=== PATIENT | female | born 1995 | race Caucasian/White ===

== ENCOUNTER 2023-01-03 22:45 | Emergency (ER) | payer OTHER, SELFPAY ==
[2023-01-03 22:48] VITALS: BP 148/109; PULSE 93; RESP 16; TEMP 36.8; O2SAT 98; BMI 30.8
[2023-01-03 23:01] VITALS: BP 138/68
--- NOTE | 2023-01-03 23:20 | ED.GENADUL1 ---
HPI - General Adult General Chief complaint: Headache Stated complaint: HEADACHE Time Seen by Provider: 01/03/23 23:13 Mode of arrival: walk-in History of Present Illness HPI narrative: family history of headaches. Her mother and her Aunti have migraines. She now presents with one week his of headache. top of her head and radiates into her neck. Neck is sore. no fever. No numbness or weakness of her extremities. states she feels dizzy and nauseated . No fever denies similar headaches Related Data Home Medications Medication Instructions Recorded Confirmed fluoxetine 40 mg capsule (Prozac) 40 mg PO DAILY 01/03/23 01/03/23 lamotrigine 100 mg tablet 100 mg DAILY 01/03/23 octreotide acetate .ROUTE 01/03/23 Allergies Allergy/AdvReac Type Severity Reaction Status Date / Time No Known Drug Allergies Allergy Verified 01/03/23 22:51 Review of Systems ROS Status of ROS 10 or more systems reviewed and unremarkable except as noted in history and below [facility] Social History Smoking status: Never smoker Exam Constitutional Vital Signs - 24 hr 01/03/23 22:48 01/03/23 23:01 Temperature 98.3 F Pulse Rate [Monitor] 93 H Respiratory Rate 16 Blood Pressure [Left Arm] 148/109 H 138/68 H Pulse Oximetry 98 Common normals: no apparent distress, average body habitus, oriented x3, no limitations, healthy appearing and alert [facility] Common normals: normocephalic and head/scalp atraumatic Eye Common normals: PERRL, EOMs intact bilaterally, conjunctivae normal, no scleral icterus and no papilledema Respiratory Common normals: normal respiratory effort, no retractions, no use of accessory muscles and clear to auscultation bilaterally Cardio Common normals: regular rate, regular rhythm, S1 normal heart sound and S2 normal heart sound GI Common normals: Normal to inspection, nondistended, normoactive bowel sounds present Extremity Common normals: normal to inspection, full ROM, normal capillary refill and no joint enlargement Neuro Common normals: oriented x3, moves all extremities, no focal motor deficits and no sensory deficits noted Psych Appearance: grossly normal Course Vital Signs Vital signs: Vital Signs Temperature 98.3 F 01/03/23 22:48 Pulse Rate 93 H 01/03/23 22:48 Respiratory Rate 16 01/03/23 22:48 Blood Pressure 148/109 H 01/03/23 22:48 Pulse Oximetry 98 01/03/23 22:48 Temperature 98.3 F 01/03/23 22:48 Pulse Rate 93 H 01/03/23 22:48 Respiratory Rate 16 01/03/23 22:48 Blood Pressure 138/68 H 01/03/23 23:01 Pulse Oximetry 98 01/03/23 22:48 Medical Decision Making MDM Narrative Medical decision making narrative: patient presents with a headache for one week. Neck sore. No fever. No similar past headache. labs unremarkable except mild elevation of glucose at 120s. CT brain neg. Patient medicated in the department and feeling much better at time of discharge. Discharged and advised to follow up with her family doctor in one day for recheck Discharge Plan Discharge Chief Complaint: Headache Clinical Impression: Headache Patient Disposition: Home, Self-Care Prescriptions / Home Meds: No Action lamotrigine 100 mg tablet 100 mg DAILY fluoxetine [Prozac] 40 mg capsule 40 mg PO DAILY octreotide acetate [Sandostatin] .ROUTE Patient Comments: infusion every 28days infusion clinic. unknown dose. Instructions: Acute Headache (ED) Stand Alone Forms: Portal Instructions Referrals: ELOISE SAMS [Primary Care Provider] - 1 week Follow Up Appointments: follow up tomorrow for recheck
--- NOTE | 2023-01-03 23:23 | CT_ITS ---
The [address] [address] Patient Name: KRYS MARTINEZ MRN: [id number] date: 1995 Sex: F Assigned Patient Location: ER Current Patient Location: ER Accession/Order Number: [id number] Exam Date: 01/03/2023 23:45 Report Date: 01/04/2023 00:08 At the request of: DIONICIO PAYTON Procedure: CT head/brain wo con CT head/brain wo con, 01/03/2023 11:45 PM EDT INDICATION: headache COMPARISON: None. TECHNIQUE: Axial CT images of the brain from skull base to vertex, including portions of the face and sinuses, were obtained without contrast. Multiplanar reformatted images were generated and reviewed as needed. Dose reduction techniques were achieved by using automated exposure control and/or adjustment of mA and/or kV according to patient size and/or use of iterative reconstruction technique. FINDINGS: CEREBRUM: No edema, hemorrhage, mass, acute infarction, or inappropriate atrophy. CEREBELLUM: No edema, hemorrhage, mass, acute infarction, or inappropriate atrophy. BRAINSTEM: No acute infarct, hemorrhage or gross structural abnormality. CSF SPACES: Ventricles, cisterns, and sulci are appropriate for age. No hydrocephalus, subarachnoid hemorrhage, or mass. SKULL: No mass or other significant visible lesion. SINUSES: Limited views demonstrate no significant mucosal thickening or fluid. ORBITS: Limited views are unremarkable. OTHER: None. IMPRESSION: No acute intracranial abnormality is identified. Electronically authenticated by: Carla MEADOWS Date: 01/04/2023 00:08
[2023-01-03 23:29] LABS: Basophils Percent Auto 0.5 % (0.2-2.0); Eosinophils Absolute Auto 0.2 10^3/uL (0.0-0.7); Eosinophils Percent Auto 1.9 % (0.9-7.0); Hemoglobin 11.6 g/dL (12.0-16.0); Immature Granulocytes Abs Auto 0.05 10^3/uL (0.00-0.03); Immature Granulocytes Pct Auto 0.6 % (0.0-0.5); Lymphocytes Absolute Auto 2.4 10^3/uL (1.2-3.8); Lymphocytes Percent Auto 27.7 % (20.5-60.0); Mean Corpuscular HGB Conc 32.2 g/dL (29.9-35.2); Mean Corpuscular Hemoglobin 27.8 pg (26.7-34.0); Mean Corpuscular Volume 86.3 fL (81.0-99.0); Mean Platelet Volume 9.6 fL (9.5-13.5); Monocytes Absolute Auto 0.6 10^3/uL (0.3-0.8); Monocytes Percent Auto 7.1 % (1.7-12.0); Neutrophils Absolute Auto 5.4 10^3/uL (1.4-6.5); Neutrophils Percent Auto 62.2 % (43.0-75.0); Platelet Count 365 10^3/uL (150-450); Red Blood Count 4.17 10^6/uL (4.20-5.40); Red Cell Distribution Width 12.8 % (11.0-15.0); White Blood Count 8.6 10^3/uL (4.0-11.0)
[2023-01-03 23:34] LABS: Anion Gap 11.9; BUN Creatinine Ratio 11.6; Calcium 8.6 mg/dL (8.5-10.1); Carbon Dioxide 28.8 mmol/L (21.0-32.0); Chloride 101 mmol/L (98-107); Estimated GFR (African America >60 (>=60); Estimated GFR (Non-African Ame >60 (>=60); Glucose 124 mg/dL (74-106); HCG Qualitative NEGATIVE (NEGATIVE); Potassium 3.7 mmol/L (3.5-5.1); Sodium 138 mmol/L (136-145)
[2023-01-03] MEDS: METHYLPREDNISOLONE SOD SUCC PF 125 MG/2 ML VIAL IVP (23:34)
[2023-01-03] MEDS: DIPHENHYDRAMINE HCL 50 MG/ML (1ML) VIAL IV (23:34)
[2023-01-03 23:35] LABS: C Reactive Protein <1.0 mg/dL (<=1.0)
[2023-01-03] MEDS: ONDANSETRON PF 4 MG/2 ML VIAL IV (23:35)
[2023-01-03] MEDS: 0.9 % SODIUM CHLORIDE 1,000 ML 1000 ML (23:47)
[2023-01-04] MEDS: MAGNESIUM SULFATE IN WATER 50 ML IV (00:44)
== END 2023-01-04 02:17 | disposition home or self-care (01) ==
PROVIDERS: Emergency Provider Internal Medicine; PCP Nurse Practitioner Family
DX: R51.9 Headache, unspecified (principal)
CPT/HCPCS: 36415; 70450; 80048; 84703; 85025; 86140; 96374; 96375; 99285; J2930

== ENCOUNTER 2023-02-08 22:01 | Emergency (ER) | payer OTHER, SELFPAY ==
[2023-02-08 22:05] VITALS: BP 185/98; PULSE 104; RESP 18; TEMP 37; O2SAT 100; BMI 31.2
[2023-02-08 22:06] VITALS: BP 185/98
--- NOTE | 2023-02-08 22:14 | ED.CHESTPAI1 ---
HPI - Chest Pain General Chief Complaint: Chest Pain Stated Complaint: CHEST PAIN RADIATING TO BACK, 6WKS TOMORR Time Seen by Provider: 02/08/23 22:13 Source: patient Mode of arrival: walk-in History of Present Illness HPI narrative: Patient presents to emergency department complaining of chest pain and pressure to the epigastric region that started 3 days ago. She states 3 days ago last January 10 minutes and went away. Today it has been ongoing for over half hour she's not had any relief. States the pain extends from her epigastric region bilaterally the ribs and to the back. She complains of pain to the right upper quadrant. Patient is 6 weeks gestation. She states she initially feels warm prior to the pain starting. It is not related to exertion. There is nothing that makes it better or worse. She denies any lower extremity edema, or cramping. She has a history of carcinoid tumor, status post bowel resection. Patient has not seen her doctor regarding the . She states she is slightly nauseated on arrival to the emergency department. She denies any flank pain, hematuria, dysuria. She denies any trauma. She denies any diarrhea, constipation. She states she was struck in normal amounts of coffee denies any dizziness, lightheadedness, palpitations. She denies any cough, fever, chills or upper respiratory infection symptoms. Related Data Home Medications Medication Instructions Recorded Confirmed fluoxetine 40 mg capsule (Prozac) 40 mg PO DAILY 01/03/23 01/03/23 lamotrigine 100 mg tablet 100 mg DAILY 01/03/23 octreotide acetate .ROUTE 01/03/23 Previous Rx's Medication Instructions Recorded ondansetron HCl 4 mg tablet 4 mg PO Q8H PRN nausea and 02/08/23 vomiting 4 days #10 tabs Allergies Allergy/AdvReac Type Severity Reaction Status Date / Time gabapentin Allergy Mild Vomiting Verified 02/08/23 22:09 Review of Systems ROS Status of ROS 10 or more systems reviewed and unremarkable except as noted in history and below [facility] Social History Smoking status: Never smoker Exam Narrative Exam Narrative: Nurses notes and vital signs reviewed and patient is not hypoxic. General: Nontoxic, Well-appearing and in no apparent distress. Skin: Warm, dry, no pallor noted. No Rash Head: Normocephalic, atraumatic. Neck: Supple, non-tender. Eye: Pupils are equal, round and EOMI. No scleral icterus. Ears, Nose, Mouth, and Throat: TM clear, no posterior oropharynx erythema or nasal mucosal hypertrophy, uvula is mid-line Oral mucosa is moist Cardiovascular: Regular Rate and Rhythm without murmur, gallop or rub. Respiratory: No accessory muscle use or respiratory distress. Lungs are clear to auscultation, no wheezing, rales or rhonchi Chest Wall: no tenderness Back: No midline thoracic or lumbar vertebral tenderness. No CVA tenderness Musculoskeletal: normal ROM, no calf or popliteal tenderness, no lower extremity edema/swelling GI: Abdomen is soft, non-distended. Normal bowel sounds. No masses appreciated. No tenderness to palpation. No rebound, guarding, or rigidity noted. Neurological: A&O x4. No cranial nerve dysfunction observed. No truncal ataxia. Moves all extremities. Sensation intact. Psychiatric: Cooperative and interactive. anxious. Constitutional Vital Signs, click to edit/add: Last Vital Signs Temp 98.6 F 02/08/23 22:05 Pulse 85 02/08/23 23:45 Resp 18 02/08/23 22:05 BP 130/87 H 02/08/23 23:30 Pulse Ox 100 02/08/23 22:05 O2 Del Method Room Air 02/08/23 22:05 Course Vital Signs Vital signs: Vital Signs Temperature 98.6 F 02/08/23 22:05 Pulse Rate 104 H 02/08/23 22:05 Respiratory Rate 18 02/08/23 22:05 Blood Pressure 185/98 H 02/08/23 22:05 Pulse Oximetry 100 02/08/23 22:05 Oxygen Delivery Method Room Air 02/08/23 22:05 Temperature 98.6 F 02/08/23 22:05 Pulse Rate 85 02/08/23 23:45 Respiratory Rate 18 02/08/23 22:05 Blood Pressure 130/87 H 02/08/23 23:30 Pulse Oximetry 100 02/08/23 22:05 Oxygen Delivery Method Room Air 02/08/23 22:05 MDM - Chest Pain MDM Narrative Medical decision making narrative: EKG shows sinus rhythm without any acute ischemic changes. Patient had an IV established was given normal saline, Zofran, Pepcid and IV fluids. Chest x-ray was done with the patient the shielded and consent was obtained. Patient is agreeable to x-ray. All results discussed with patient.Patients for urinalysis sent for culture. She states she'll was has to consider decreasing her urine. She does not have any dysuria, flank pain, hematuria. Patient was given a prescription for Zofran. She'll follow up with primary care doctor and [employer], And her cancer doctors at [facility]. At this time the patient is without objective evidence of an acute process requiring hospitalization or inpatient management. The patient has remained hemodynamically stable. No additional indication for emergent studies at this time. I answered all questions. Discussed discharge instructions including standard anticipatory guidance and what should prompt a return to the emergency department, including if they get worse are not getting better or develops any new or concerning symptoms. I've given them specific time frame in which to follow-up, and who to follow-up with. The patient demonstrates understanding. Patient is nontoxic and stable for discharge with outpatient follow-up. This note was created with the assistance of a speech recognition program. Although the intention is to generate documents that actually reflects the content of the visit, no guarantees can be provided that every mistake has been identified and corrected by editing. Differential Diagnosis Differential diagnosis: Likely pneumothorax, atypical chest pain, st elevation myocardial infarction, costochondritis, chest pain and biliary colic Lab Data Attestation: I reviewed the patient's lab results. Labs: Lab Results 02/08/23 02/08/23 Range/Units 22:00 22:42 WBC 11.0 (4.0-11.0) 10^3/uL RBC 4.04 L (4.20-5.40) 10^6/uL Hgb 10.9 L (12.0-16.0) g/dL Hct 34.0 L (36.0-48.0) % MCV 84.2 (81.0-99.0) fL MCH 27.0 (26.7-34.0) pg MCHC 32.1 (29.9-35.2) g/dL RDW 13.5 (11.0-15.0) % Plt Count 386 (150-450) 10^3/uL MPV 9.5 (9.5-13.5) fL Neut % (Auto) 58.0 (43.0-75.0) % Lymph % (Auto) 30.6 (20.5-60.0) % [place] % (Auto) 9.0 (1.7-12.0) % Eos % (Auto) 1.1 (0.9-7.0) % Baso % (Auto) 0.5 (0.2-2.0) % Neut # (Auto) 6.4 (1.4-6.5) 10^3/uL Lymph # (Auto) 3.4 (1.2-3.8) 10^3/uL [place] # (Auto) 1.0 H (0.3-0.8) 10^3/uL Eos # (Auto) 0.1 (0.0-0.7) 10^3/uL Baso # (Auto) 0.1 (0.0-0.1) 10^3/uL Abs Immat Gran (auto) 0.09 H (0.00-0.03) 10^3/uL Imm/Tot Granulo (auto) 0.8 H (0.0-0.5) % Sodium 139 (136-145) mmol/L Potassium 3.9 (3.5-5.1) mmol/L Chloride 103 (98-107) mmol/L Carbon Dioxide 27.1 (21.0-32.0) mmol/L Anion Gap 12.8 BUN 8.0 (7.0-18.0) mg/dL Creatinine 0.70 (0.55-1.02) mg/dL Est GFR ( Amer) >60 (>=60) Est GFR (Non-Af Amer) >60 (>=60) BUN/Creatinine Ratio 11.4 Glucose 106 (74-106) mg/dL Calcium 9.0 (8.5-10.1) mg/dL Total Bilirubin 0.2 (0.2-1.0) mg/dL AST 26 (15-37) U/L ALT 55 (14-59) U/L Alkaline Phosphatase 49 (46-116) U/L Troponin I High Sens <4.0 L (4.0-51.3) pg/mL Total Protein 7.4 (6.4-8.2) g/dL Albumin 4.2 (3.4-5.0) g/dL Globulin 3.2 g/dL Albumin/Globulin Ratio 1.3 Lipase 94.0 (73.0-393.0) U/L Urine Color Lt. yellow (YELLOW) Urine Clarity Clear (CLEAR) Urine pH 7.5 (5.0-9.0) Ur Specific [place] 1.015 (1.005-1.025) Urine Protein Negative (NEG/TRACE) mg/dL Urine Glucose (UA) Negative (NEGATIVE) mg/dL Urine Ketones Negative (NEGATIVE) mg/dL Urine Occult Blood Negative (NEGATIVE) Urine Nitrite Negative (NEGATIVE) Urine Bilirubin Negative (NEGATIVE) Urine Urobilinogen 0.2 (0.2-1.0) EU/dL Ur Leukocyte Esterase Trace A (NEGATIVE) Urine RBC 0-2 (0-2) #/HPF Urine WBC 2-5 A (NONE SEEN) #/HPF Ur Squamous Epith Cells Few A (NONE/RARE) #/LPF Urine Crystals Seen A (None Seen) #/HPF Amorphous Sediment Moderate Urine Bacteria Large A (NONE SEEN) #/HPF Urine Casts None seen (NONE SEEN) #/LPF Urine Mucus None seen (NONE SEEN) Ur Culture Indicated? Yes Urine Opiates Screen Negative (NEGATIVE) Ur Buprenorphine Scrn Negative (NEGATIVE) Ur Oxycodone Screen Negative (NEGATIVE) Urine Methadone Screen Negative (NEGATIVE) Ur Propoxyphene Screen Negative (NEGATIVE) Ur Barbiturates Screen Negative (NEGATIVE) U Tricyclic Antidepress Negative (NEGATIVE) Ur Phencyclidine Scrn Negative (NEGATIVE) Ur Amphetamines Screen Negative (NEGATIVE) U Methamphetamines Scrn Negative (NEGATIVE) U Benzodiazepines Scrn Negative (NEGATIVE) Urine Cocaine Screen Negative (NEGATIVE) U Cannabinoids Screen Negative (NEGATIVE) Heart Score History: Slightly/Non-Suspicious ECG: Normal Age: <45 years Risk Factors: No Risk Factors Troponin: <Normal Limit Total Heart Score Recommendations & Risks:: 0 Discharge Plan Discharge Chief Complaint: Chest Pain Clinical Impression: Chest pain Patient Disposition: Home, Self-Care Time of Disposition Decision: 23:45 Condition: Good Mode of Transportation: Private Vehicle Prescriptions / Home Meds: New ondansetron HCl 4 mg tablet 4 mg PO Q8H PRN (Reason: nausea and vomiting) 4 Days Qty: 10 0RF No Action lamotrigine 100 mg tablet 100 mg DAILY fluoxetine [Prozac] 40 mg capsule 40 mg PO DAILY octreotide acetate [Sandostatin] .ROUTE Patient Comments: infusion every 28days infusion clinic. unknown dose. Instructions: Chest Pain (ED) Stand Alone Forms: Portal Instructions Referrals: Ron Ruano DO [Physician] - 1 week ELOISE SAMS [Primary Care Provider] - 1 week Discharge Date/Time: 02/09/23 00:00
[2023-02-08 22:17] VITALS: PULSE 97
--- NOTE | 2023-02-08 22:27 | ECG_ITS ---
The [facility] Test Date: 2023-02-08 Pat Name: KRYS MARTINEZ Department: Room: - Gender: Female Svp Monetization: : 1995 Requested By: [id number] Order Number: [id number] Reading MD: CRISTI SCHAFER Measurements Intervals [place] Rate: 109 P: 74 MS: 138 QRS: 75 QRSD: 72 T: 16 QT: 316 QTc: 380 Interpretive Statements 1120 Sinus tachycardia 4068 Nonspecific Twave abnormality 8102 Low QRS voltage in chest leads 9140 abnormal rhythm ECG No previous ECG available for comparison Electronically Signed On 02-09-2023 7:21:22 EDT by CRISTI SCHAFER
[2023-02-08 22:38] LABS: Basophils Absolute Auto 0.1 10^3/uL (0.0-0.1); Basophils Percent Auto 0.5 % (0.2-2.0); Eosinophils Absolute Auto 0.1 10^3/uL (0.0-0.7); Eosinophils Percent Auto 1.1 % (0.9-7.0); Hemoglobin 10.9 g/dL (12.0-16.0); Immature Granulocytes Abs Auto 0.09 10^3/uL (0.00-0.03); Immature Granulocytes Pct Auto 0.8 % (0.0-0.5); Lymphocytes Absolute Auto 3.4 10^3/uL (1.2-3.8); Lymphocytes Percent Auto 30.6 % (20.5-60.0); Mean Corpuscular HGB Conc 32.1 g/dL (29.9-35.2); Mean Corpuscular Volume 84.2 fL (81.0-99.0); Mean Platelet Volume 9.5 fL (9.5-13.5); Neutrophils Absolute Auto 6.4 10^3/uL (1.4-6.5); Platelet Count 386 10^3/uL (150-450); Red Blood Count 4.04 10^6/uL (4.20-5.40); Red Cell Distribution Width 13.5 % (11.0-15.0)
--- NOTE | 2023-02-08 22:42 | XR_ITS ---
The [address] [address] Patient Name: KRYS MARTINEZ MRN: [id number] date: 1995 Sex: F Assigned Patient Location: ER Current Patient Location: ER Accession/Order Number: [id number] Exam Date: 02/08/2023 22:42 Report Date: 02/08/2023 23:03 At the request of: CHERYLE PARKER Procedure: XR chest 1V EXAMINATION: XR chest 1V HISTORY: Midsternal chest pain, dyspnea and cough COMPARISON: None. TECHNIQUE: Portable chest FINDINGS: The lung parenchyma is free of consolidation or infiltrate. No pneumothorax or pleural effusion. The cardiac, mediastinal and hilar contours are normal. The visualized osseous structures exhibit no gross abnormality. XR/XR chest 1V IMPRESSION: No acute cardiopulmonary abnormality. Electronically authenticated by: NAWAF CAIN Date: 02/08/2023 23:03
[2023-02-08 22:51] LABS: Alanine Aminotransferase 55 U/L (14-59); Albumin Globulin Ratio 1.3; Albumin Level 4.2 g/dL (3.4-5.0); Alkaline Phosphatase 49 U/L (46-116); Anion Gap 12.8; Aspartate Amino Transferase 26 U/L (15-37); BUN Creatinine Ratio 11.4; Bilirubin Total 0.2 mg/dL (0.2-1.0); Carbon Dioxide 27.1 mmol/L (21.0-32.0); Chloride 103 mmol/L (98-107); Estimated GFR (African America >60 (>=60); Estimated GFR (Non-African Ame >60 (>=60); Globulin 3.2 g/dL; Glucose 106 mg/dL (74-106); Potassium 3.9 mmol/L (3.5-5.1); Sodium 139 mmol/L (136-145); Total Protein 7.4 g/dL (6.4-8.2); Troponin I High Sensitivity <4.0 pg/mL (4.0-51.3)
[2023-02-08 22:59] LABS: Amphetamine Screen Urine NEGATIVE (NEGATIVE); Barbiturates Screen Urine NEGATIVE (NEGATIVE); Benzodiazepines Screen Urine NEGATIVE (NEGATIVE); Buprenorphine Screen Urine NEGATIVE (NEGATIVE); Cannabinoid Screen Urine NEGATIVE (NEGATIVE); Cocaine Screen Urine NEGATIVE (NEGATIVE); Methadone Screen Urine NEGATIVE (NEGATIVE); Methamphetamines Screen Urine NEGATIVE (NEGATIVE); Opiate Screen Urine NEGATIVE (NEGATIVE); Oxycodone Screen Urine NEGATIVE (NEGATIVE); Phencyclidine Screen Urine NEGATIVE (NEGATIVE); Tricyclic Antidepressant Urine NEGATIVE (NEGATIVE)
[2023-02-08] MEDS: ONDANSETRON PF 4 MG/2 ML VIAL (23:00)
[2023-02-08] MEDS: 0.9 % SODIUM CHLORIDE 1,000 ML 1000 ML (23:00)
[2023-02-08 23:11] VITALS: BP 126/83
[2023-02-08 23:19] LABS: Bilirubin Urine NEGATIVE (NEGATIVE); Blood Urine NEGATIVE (NEGATIVE); Clarity Urine CLEAR (CLEAR); Color Urine LT. YELLOW (YELLOW); Glucose Urine UA NEGATIVE (NEGATIVE); Ketones Urine NEGATIVE (NEGATIVE); Leukocyte Esterase Urine TRACE (NEGATIVE); Nitrite Urine NEGATIVE (NEGATIVE); Protein Urine NEGATIVE (NEG/TRACE); Specific Gravity Urine 1.015 (1.005-1.025); Urobilinogen Urine 0.2 EU/dL (0.2-1.0); pH Urine 7.5 (5.0-9.0)
[2023-02-08 23:22] LABS: Urine Microscopic Indicated YES
[2023-02-08 23:28] LABS: Amorphous Sediment Urine MODERATE; Bacteria Urine LARGE #/HPF (NONE SEEN); Cast Seen? NONE SEEN #/LPF (NONE SEEN); Crystals Seen? Seen #/HPF (None Seen); Mucus Urine NONE SEEN (NONE SEEN); RBC Urine 0-2 #/HPF (0-2); Squamous Epithelial Cell Urine FEW #/LPF (NONE/RARE)
[2023-02-08 23:29] LABS: Urine Culture Indicated YES
[2023-02-08 23:30] VITALS: BP 130/87
[2023-02-08 23:45] VITALS: PULSE 85
== END 2023-02-09 | disposition home or self-care (01) ==
PROVIDERS: Emergency Provider Emergency Medicine; PCP Nurse Practitioner Family
DX: O26.891 Other specified pregnancy related conditions, first trimester (principal); R07.9 Chest pain, unspecified; Z3A.01 Less than 8 weeks gestation of pregnancy; Z79.899 Other long term (current) drug therapy
CPT/HCPCS: 36415; 71045; 80053; 80307; 81003; 81015; 83690; 84484; 85025; 87086; 93005; 99285

== ENCOUNTER 2023-02-14 13:44 | Emergency (ER) | payer OTHER, SELFPAY ==
[2023-02-14 14:01] VITALS: BP 130/70; PULSE 95; RESP 18; TEMP 36.8; O2SAT 100; BMI 31.2
--- NOTE | 2023-02-14 14:11 | ED_ITS ---
Documented by User: TROY Euceda 02/14/23 16:11 HPI - General Adult General Chief complaint: OB/Uterine Contractions Stated complaint: Time Seen by Provider: 02/14/23 13:59 Source: patient Mode of arrival: walk-in Limitations: no limitations History of Present Illness HPI narrative: Patient is a 27-year-old female at estimated 6 weeks 5 days based on last menstrual cycle of December 29. Estimated due date would be 10/05/2023 patient states she has had diarrhea for the past three days, multiple bouts, no blood or mucus. Patient states she has had lower pelvic pain and her chief concern is possible ectopic . Patient is seen twice in the past month for headache and chest pain. Patient states so symptoms to have come and go, but denies them currently. She does have a family history of migraines.. Patient states this morning she started with vaginal spotting about the size of a quarter, no active bleeding and denies discharge, denies dysuria. Patient denies nausea, states her pain with cramping comes and goes and not persistent at ?01/25, patient reports occasional pain in her lower back as well. She appears in no distress and declines any medication for pain at this time. Patient admits to eating and drinking shortly before arrival. Patient had significant abdominal exploratory surgery approximate seven months ago, she has had her appendix removed per patient. Treatments prior to arrival: Reports none Related Data Home Medications Medication Instructions Recorded Confirmed fluoxetine 40 mg capsule (Prozac) 40 mg PO DAILY 01/03/23 02/14/23 Previous Rx's Medication Instructions Recorded ondansetron HCl 4 mg tablet 4 mg PO Q8H PRN nausea and 02/08/23 vomiting 4 days #10 tabs Allergies Allergy/AdvReac Type Severity Reaction Status Date / Time gabapentin Allergy Mild Vomiting Verified 02/08/23 22:09 Review of Systems ROS Constitutional Denies: fever, chills or change in weight Eyes Denies: change in vision Ears, nose, mouth, and throat Denies: throat pain or neck pain Cardiovascular Denies: chest pain, palpitations or edema Respiratory Denies: shortness of breath, cough or wheezing Gastrointestinal Reports: abdominal pain and diarrhea; Denies: nausea or vomiting Musculoskeletal Denies: back pain or neck pain Integumentary/Breast Denies: rash or itching Neurological Denies: headache Psychiatric Denies: anxiety PFSH PFSH Social History Smoking status: Never smoker Exam Narrative Exam Narrative: Nurses notes and vital signs reviewed and patient is not hypoxic. General: The patient appears well and in no apparent distress. Patient is resting comfortably on cart. Skin: Warm, dry, no pallor noted. Head: Normocephalic, atraumatic Neck: Supple, trachea mid-line, no tenderness, no lymphadenopathy Eye: Pupils are equal, round and reactive to light, EOMI Ears, Nose, Mouth, and Throat: TM are clear, normal light reflex, oral mucosa is moist, no posterior oropharynx erythema or hypertrophy, uvula is mid-line Cardiovascular: Regular Rate and Rhythm Respiratory: Patient is in no distress, no accessory muscle use, lungs are clear to auscultation, no wheezing, rales or rhonchi. Chest Wall: no tenderness Back: non-tender, no CVA tenderness Musculoskeletal: normal ROM, no tenderness, no swelling GI: Normal bowel sounds, notable midline incision from prior exploratory surgery. Mild tenderness suprapubic/right lower quadrant., no masses appreciated. No rebound, guarding, or rigidity noted. Neurological: A&O x4 Psychiatric: Cooperative Constitutional Vital Signs, click to edit/add: Last Vital Signs Temp 98.2 F 02/14/23 14:01 Pulse 95 H 02/14/23 14:01 Resp 18 02/14/23 14:01 BP 130/70 02/14/23 14:01 Pulse Ox 100 02/14/23 14:01 O2 Del Method Room Air 02/14/23 14:01 Course Vital Signs Vital signs: Vital Signs Temperature 98.2 F 02/14/23 14:01 Pulse Rate 95 H 02/14/23 14:01 Respiratory Rate 18 02/14/23 14:01 Blood Pressure 130/70 02/14/23 14:01 Pulse Oximetry 100 02/14/23 14:01 Oxygen Delivery Method Room Air 02/14/23 14:01 Temperature 98.2 F 02/14/23 14:01 Pulse Rate 95 H 02/14/23 14:01 Respiratory Rate 18 02/14/23 14:01 Blood Pressure 130/70 02/14/23 14:01 Pulse Oximetry 100 02/14/23 14:01 Oxygen Delivery Method Room Air 02/14/23 14:01 Medical Decision Making MDM Narrative Medical decision making narrative: Patient reports previous exploratory surgery to remove tumors. Which she describes as adhesions taking bowels to wall, prior history of appendectomy. Patient's chief concern is a possible ectopic PUBLIC RELATIONS ASSISTANT is Dr. Ruano. Patient's vitals stable. She is given 1 L IV fluids given her report of diarrhea for several days. Ultrasound preliminary study reveals intrauterine per tech, formal report pending. discussed laboratory studies, patient is A positive blood type. Her electrolytes are within normal limits, there is slight elevation in her liver enzymes. We discussed her history with prior abdominal surgery and she admits to having diarrhea 4-5 times a day since that surgery, but was mainly concerned about the potential complications of being for the 1st time. Patient states she does follow with an oncologist and her surgeon still at [facility]. Recommend having her labs repeated and if needed return to the Emergency Room if any symptoms worsen or new symptoms develop. Urinalysis without evidence of infection prior urine culture reviewed without evidence of growth other than medics for. Patient agreeable practice a brat diet and follow up to her PUBLIC RELATIONS ASSISTANT.The patient is to followup with primary care physician/ Dr. Ruano and [facility] General Surgeon to discuss abdominal symptoms in next 2-4 days or to return to the emergency department should any of the signs or symptoms worsen or new symptoms develop. Patient had questions answered. The patient agrees with the following Diagnosis and Treatment plan and the patient will be discharged home.? Lab Data Lab results reviewed: Yes I reviewed the patient's lab results Labs: Lab Results 02/14/23 Range/Units 14:10 WBC 6.8 (4.0-11.0) 10^3/uL RBC 4.00 L (4.20-5.40) 10^6/uL Hgb 10.7 L (12.0-16.0) g/dL Hct 33.3 L (36.0-48.0) % MCV 83.3 (81.0-99.0) fL MCH 26.8 (26.7-34.0) pg MCHC 32.1 (29.9-35.2) g/dL RDW 13.5 (11.0-15.0) % Plt Count 348 (150-450) 10^3/uL MPV 9.3 L (9.5-13.5) fL Neut % (Auto) 66.5 (43.0-75.0) % Lymph % (Auto) 24.9 (20.5-60.0) % [place] % (Auto) 6.0 (1.7-12.0) % Eos % (Auto) 1.6 (0.9-7.0) % Baso % (Auto) 0.4 (0.2-2.0) % Neut # (Auto) 4.5 (1.4-6.5) 10^3/uL Lymph # (Auto) 1.7 (1.2-3.8) 10^3/uL [place] # (Auto) 0.4 (0.3-0.8) 10^3/uL Eos # (Auto) 0.1 (0.0-0.7) 10^3/uL Baso # (Auto) 0.0 (0.0-0.1) 10^3/uL Abs Immat Gran (auto) 0.04 H (0.00-0.03) 10^3/uL Imm/Tot Granulo (auto) 0.6 H (0.0-0.5) % Sodium 136 (136-145) mmol/L Potassium 3.6 (3.5-5.1) mmol/L Chloride 100 (98-107) mmol/L Carbon Dioxide 24.8 (21.0-32.0) mmol/L Anion Gap 14.8 BUN 6.0 L (7.0-18.0) mg/dL Creatinine 0.67 (0.55-1.02) mg/dL Est GFR ( Amer) >60 (>=60) Est GFR (Non-Af Amer) >60 (>=60) BUN/Creatinine Ratio 9.0 Glucose 129 H (74-106) mg/dL Calcium 8.9 (8.5-10.1) mg/dL Magnesium 1.8 (1.8-2.4) mg/dL Total Bilirubin 0.3 (0.2-1.0) mg/dL AST 72 H (15-37) U/L ALT 160 H (14-59) U/L Alkaline Phosphatase 73 (46-116) U/L Total Protein 7.6 (6.4-8.2) g/dL Albumin 4.0 (3.4-5.0) g/dL Globulin 3.6 g/dL Albumin/Globulin Ratio 1.1 Lipase 52.0 L (73.0-393.0) U/L HCG, Quant 99557 mIU/mL Urine Color Lt. yellow (YELLOW) Urine Clarity Clear (CLEAR) Urine pH 6.0 (5.0-9.0) Ur Specific [place] <=1.005 A (1.005-1.025) Urine Protein Negative (NEG/TRACE) mg/dL Urine Glucose (UA) Negative (NEGATIVE) mg/dL Urine Ketones Negative (NEGATIVE) mg/dL Urine Occult Blood Negative (NEGATIVE) Urine Nitrite Negative (NEGATIVE) Urine Bilirubin Negative (NEGATIVE) Urine Urobilinogen 0.2 (0.2-1.0) EU/dL Ur Leukocyte Esterase Small A (NEGATIVE) Blood Type A Positive Imaging Data US - abdomen: Radiologist's impression: Procedure:? US OB transvaginal ? Initial impression only. ? US/US OB transvaginal IMPRESSION: ? 1. Single living intrauterine gestation with estimated gestational age of 6 weeks and 2 days based on the crown-rump length measurement, AMY 10/09/2023. 2. Trace free fluid within the pelvis. 3. Unremarkable appearance of the ovaries bilaterally with appropriate blood flow. ? ? Electronically authenticated by: DELORES? DANIEL ? Date: 02/14/2023? 16:05 Discharge Plan Discharge Chief Complaint: OB/Uterine Contractions Clinical Impression: Vaginal bleeding during , Diarrhea, Abdominal pain, Elevated liver enzymes Patient Disposition: Home, Self-Care Mode of Transportation: Private Vehicle Prescriptions / Home Meds: No Action ondansetron HCl 4 mg tablet 4 mg PO Q8H PRN (Reason: nausea and vomiting) 4 Days Qty: 10 0RF fluoxetine [Prozac] 40 mg capsule 40 mg PO DAILY Instructions: Abdominal Pain in (ED), Nutrition Tips for Relief of Diarrhea (ED) Additional Instructions: please notify your general surgeon at [facility] of Emergency Room visit and symptoms. Stand Alone Forms: Portal Instructions Referrals: Ron Ruano DO [Physician] - As soon as possible ELOISE SAMS [Primary Care Provider] - As soon as possible Discharge Date/Time: 02/14/23 16:26 Documented by User: Mayra Grimaldo MD 02/14/23 18:38 HPI - General Adult General Chief complaint: OB/Uterine Contractions Stated complaint: Time Seen by Provider: 02/14/23 13:59 Related Data Home Medications Medication Instructions Recorded Confirmed fluoxetine 40 mg capsule (Prozac) 40 mg PO DAILY 01/03/23 02/14/23 Previous Rx's Medication Instructions Recorded ondansetron HCl 4 mg tablet 4 mg PO Q8H PRN nausea and 02/08/23 vomiting 4 days #10 tabs Allergies Allergy/AdvReac Type Severity Reaction Status Date / Time gabapentin Allergy Mild Vomiting Verified 02/08/23 22:09 PFSH PFSH Social History Smoking status: Never smoker Exam Constitutional Vital Signs, click to edit/add: Last Vital Signs Temp 98.2 F 02/14/23 14:01 Pulse 95 H 02/14/23 14:01 Resp 18 02/14/23 14:01 BP 130/70 02/14/23 14:01 Pulse Ox 100 02/14/23 14:01 O2 Del Method Room Air 02/14/23 14:01 Course Vital Signs Vital signs: Vital Signs Temperature 98.2 F 02/14/23 14:01 Pulse Rate 95 H 02/14/23 14:01 Respiratory Rate 18 02/14/23 14:01 Blood Pressure 130/70 02/14/23 14:01 Pulse Oximetry 100 02/14/23 14:01 Oxygen Delivery Method Room Air 02/14/23 14:01 Temperature 98.2 F 02/14/23 14:01 Pulse Rate 95 H 02/14/23 14:01 Respiratory Rate 18 02/14/23 14:01 Blood Pressure 130/70 02/14/23 14:01 Pulse Oximetry 100 02/14/23 14:01 Oxygen Delivery Method Room Air 02/14/23 14:01 Medical Decision Making [facility] Narrative Medical decision making narrative: Patient reports previous exploratory surgery to remove tumors. Which she describes as adhesions taking bowels to wall, prior history of appendectomy. Patient's chief concern is a possible ectopic PUBLIC RELATIONS ASSISTANT is Dr. Ruano. Patient's vitals stable. She is given 1 L IV fluids given her report of diarrhea for several days. Ultrasound preliminary study reveals intrauterine per tech, formal report pending. discussed laboratory studies, patient is A positive blood type. Her electrolytes are within normal limits, there is slight elevation in her liver enzymes. We discussed her history with prior abdominal surgery and she admits to having diarrhea 4-5 times a day since that surgery, but was mainly concerned about the potential complications of being for the 1st time. Patient states she does follow with an oncologist and her surgeon still at [facility]. Recommend having her labs repeated and if needed return to the Emergency Room if any symptoms worsen or new symptoms develop. Urinalysis without evidence of infection prior urine culture reviewed without evidence of growth other than medics for. Patient agreeable practice a brat diet and follow up to her PUBLIC RELATIONS ASSISTANT.The patient is to followup with primary care physician/ Dr. Ruano and [facility] General Surgeon to discuss abdominal symptoms in next 2-4 days or to return to the emergency department should any of the signs or symptoms worsen or new symptoms develop. Patient had questions answered. The patient agrees with the following Diagnosis and Treatment plan and the patient will be discharged home.? Attending physician attestation I have reviewed the mid-level documentation, agree with the documentation, medical decision making and treatment plan as outlined by the mid-level provider. Lab Data Labs: Lab Results 02/14/23 Range/Units 14:10 WBC 6.8 (4.0-11.0) 10^3/uL RBC 4.00 L (4.20-5.40) 10^6/uL Hgb 10.7 L (12.0-16.0) g/dL Hct 33.3 L (36.0-48.0) % MCV 83.3 (81.0-99.0) fL MCH 26.8 (26.7-34.0) pg MCHC 32.1 (29.9-35.2) g/dL RDW 13.5 (11.0-15.0) % Plt Count 348 (150-450) 10^3/uL MPV 9.3 L (9.5-13.5) fL Neut % (Auto) 66.5 (43.0-75.0) % Lymph % (Auto) 24.9 (20.5-60.0) % [place] % (Auto) 6.0 (1.7-12.0) % Eos % (Auto) 1.6 (0.9-7.0) % Baso % (Auto) 0.4 (0.2-2.0) % Neut # (Auto) 4.5 (1.4-6.5) 10^3/uL Lymph # (Auto) 1.7 (1.2-3.8) 10^3/uL [place] # (Auto) 0.4 (0.3-0.8) 10^3/uL Eos # (Auto) 0.1 (0.0-0.7) 10^3/uL Baso # (Auto) 0.0 (0.0-0.1) 10^3/uL Abs Immat Gran (auto) 0.04 H (0.00-0.03) 10^3/uL Imm/Tot Granulo (auto) 0.6 H (0.0-0.5) % Sodium 136 (136-145) mmol/L Potassium 3.6 (3.5-5.1) mmol/L Chloride 100 (98-107) mmol/L Carbon Dioxide 24.8 (21.0-32.0) mmol/L Anion Gap 14.8 BUN 6.0 L (7.0-18.0) mg/dL Creatinine 0.67 (0.55-1.02) mg/dL Est GFR ( Amer) >60 (>=60) Est GFR (Non-Af Amer) >60 (>=60) BUN/Creatinine Ratio 9.0 Glucose 129 H (74-106) mg/dL Calcium 8.9 (8.5-10.1) mg/dL Magnesium 1.8 (1.8-2.4) mg/dL Total Bilirubin 0.3 (0.2-1.0) mg/dL AST 72 H (15-37) U/L ALT 160 H (14-59) U/L Alkaline Phosphatase 73 (46-116) U/L Total Protein 7.6 (6.4-8.2) g/dL Albumin 4.0 (3.4-5.0) g/dL Globulin 3.6 g/dL Albumin/Globulin Ratio 1.1 Lipase 52.0 L (73.0-393.0) U/L HCG, Quant 15060 mIU/mL Urine Color Lt. yellow (YELLOW) Urine Clarity Clear (CLEAR) Urine pH 6.0 (5.0-9.0) Ur Specific [place] <=1.005 A (1.005-1.025) Urine Protein Negative (NEG/TRACE) mg/dL Urine Glucose (UA) Negative (NEGATIVE) mg/dL Urine Ketones Negative (NEGATIVE) mg/dL Urine Occult Blood Negative (NEGATIVE) Urine Nitrite Negative (NEGATIVE) Urine Bilirubin Negative (NEGATIVE) Urine Urobilinogen 0.2 (0.2-1.0) EU/dL Ur Leukocyte Esterase Small A (NEGATIVE) Blood Type A Positive Discharge Plan Discharge Chief Complaint: OB/Uterine Contractions Clinical Impression: Vaginal bleeding during , Diarrhea, Abdominal pain, Elevated liver enzymes Patient Disposition: Home, Self-Care Mode of Transportation: Private Vehicle Prescriptions / Home Meds: No Action ondansetron HCl 4 mg tablet 4 mg PO Q8H PRN (Reason: nausea and vomiting) 4 Days Qty: 10 0RF fluoxetine [Prozac] 40 mg capsule 40 mg PO DAILY Instructions: Abdominal Pain in (ED), Nutrition Tips for Relief of Diarrhea (ED) Additional Instructions: please notify your general surgeon at [facility] of Emergency Room visit and symptoms. Stand Alone Forms: Portal Instructions Referrals: Ron Ruano DO [Physician] - As soon as possible ELOISE SAMS [Primary Care Provider] - As soon as possible Discharge Date/Time: 02/14/23 16:26
--- NOTE | 2023-02-14 14:12 | US_ITS ---
The [address] [address] Patient Name: KRYS MARTINEZ MRN: [id number] date: 1995 Sex: F Assigned Patient Location: ER Current Patient Location: .[facility] Accession/Order Number: [id number] Exam Date: 02/14/2023 14:50 Report Date: 02/14/2023 16:24 At the request of: OSMIN THOMASON Procedure: US OB transvaginal EXAM: US OB transvaginal HISTORY: pelvic pain in r/o ectopic. COMPARISON: None. TECHNIQUE: OBSTETRICAL FIRST TRIMESTER. FINDINGS: Single living intrauterine gestation with cardiac rate of 115 bpm. [place]-rump length measurement of 0.53 cm yielding estimated gestational age of 6 weeks and 2 days. Yolk sac is present. The right ovary measures 2.7 x 2.6 x 1.9 cm. The left ovary measures 2.3 x 1.7 x 1.3 cm. Appropriate arterial and venous waveforms within the ovaries bilaterally with normal bilateral resistive indices. There is trace free fluid noted within the right paramedian pelvic cul-de-sac. US/US OB transvaginal IMPRESSION: 1. Single living intrauterine gestation with estimated gestational age of 6 weeks and 2 days based on the crown-rump length measurement, AMY 10/09/2023. 2. Trace free fluid within the pelvis. 3. Unremarkable appearance of the ovaries bilaterally with appropriate blood flow. Electronically authenticated by: DELORES SANCHEZ Date: 02/14/2023 16:24
[2023-02-14 14:31] LABS: Basophils Percent Auto 0.4 % (0.2-2.0); Eosinophils Absolute Auto 0.1 10^3/uL (0.0-0.7); Eosinophils Percent Auto 1.6 % (0.9-7.0); Hematocrit 33.3 % (36.0-48.0); Hemoglobin 10.7 g/dL (12.0-16.0); Immature Granulocytes Abs Auto 0.04 10^3/uL (0.00-0.03); Immature Granulocytes Pct Auto 0.6 % (0.0-0.5); Lymphocytes Absolute Auto 1.7 10^3/uL (1.2-3.8); Lymphocytes Percent Auto 24.9 % (20.5-60.0); Mean Corpuscular HGB Conc 32.1 g/dL (29.9-35.2); Mean Corpuscular Hemoglobin 26.8 pg (26.7-34.0); Mean Corpuscular Volume 83.3 fL (81.0-99.0); Mean Platelet Volume 9.3 fL (9.5-13.5); Monocytes Absolute Auto 0.4 10^3/uL (0.3-0.8); Neutrophils Absolute Auto 4.5 10^3/uL (1.4-6.5); Neutrophils Percent Auto 66.5 % (43.0-75.0); Platelet Count 348 10^3/uL (150-450); Red Cell Distribution Width 13.5 % (11.0-15.0); White Blood Count 6.8 10^3/uL (4.0-11.0)
[2023-02-14] MEDS: 0.9 % SODIUM CHLORIDE 1,000 ML 999 ML IV (14:47)
[2023-02-14 15:11] LABS: Magnesium 1.8 mg/dL (1.8-2.4)
[2023-02-14 15:16] LABS: Alanine Aminotransferase 160 U/L (14-59); Albumin Globulin Ratio 1.1; Alkaline Phosphatase 73 U/L (46-116); Anion Gap 14.8; Aspartate Amino Transferase 72 U/L (15-37); Bilirubin Total 0.3 mg/dL (0.2-1.0); Calcium 8.9 mg/dL (8.5-10.1); Carbon Dioxide 24.8 mmol/L (21.0-32.0); Chloride 100 mmol/L (98-107); Estimated GFR (African America >60 (>=60); Estimated GFR (Non-African Ame >60 (>=60); Globulin 3.6 g/dL; Glucose 129 mg/dL (74-106); HCG Quantitative 24477 mIU/mL; Potassium 3.6 mmol/L (3.5-5.1); Sodium 136 mmol/L (136-145); Total Protein 7.6 g/dL (6.4-8.2)
[2023-02-14 15:19] LABS: Bilirubin Urine NEGATIVE (NEGATIVE); Blood Urine NEGATIVE (NEGATIVE); Clarity Urine CLEAR (CLEAR); Color Urine LT. YELLOW (YELLOW); Glucose Urine UA NEGATIVE (NEGATIVE); Ketones Urine NEGATIVE (NEGATIVE); Leukocyte Esterase Urine SMALL (NEGATIVE); Nitrite Urine NEGATIVE (NEGATIVE); Protein Urine NEGATIVE (NEG/TRACE); Specific Gravity Urine <=1.005 (1.005-1.025); Urobilinogen Urine 0.2 EU/dL (0.2-1.0)
[2023-02-14 15:20] LABS: Urine Microscopic Indicated NO
== END 2023-02-14 16:26 | disposition home or self-care (01) ==
PROVIDERS: Personal Emergency Response Attendant; Emergency Provider Emergency Medicine; PCP Nurse Practitioner Family
DX: O20.9 Hemorrhage in early pregnancy, unspecified (principal); O26.891 Other specified pregnancy related conditions, first trimester; R10.9 Unspecified abdominal pain; R19.7 Diarrhea, unspecified; R74.8 Abnormal levels of other serum enzymes; Z3A.01 Less than 8 weeks gestation of pregnancy
CPT/HCPCS: 36415; 76817; 80053; 81003; 83690; 83735; 84702; 85025; 86900; 86901; 96360; 96361; 99285

== ENCOUNTER 2023-02-20 09:29 | Outpatient (OUT) | payer OTHER, SELFPAY ==
--- NOTE | 2023-02-20 | CT_ITS ---
The [address] [address] Patient Name: KRYS MARTINEZ MRN: [id number] date: 1995 Sex: F Assigned Patient Location: CT Current Patient Location: Accession/Order Number: [id number] Exam Date: 02/20/2023 09:45 Report Date: 02/21/2023 06:07 At the request of: MCKENZIE WHIPPLE Procedure: CT angio chest EXAM: CT pulmonary angiogram of the chest using 98 mL of IV iodinated contrast. 3-D imaging was performed. Dose reduction technique used: Automated exposure control and/or adjustment of the mA and/or kV according to patient size and/or use of iterative reconstruction technique. REASON FOR EXAM: Chest pain, dyspnea COMPARISON: None FINDINGS: No pulmonary emboli. No aortic dissection. No pneumothorax. No acute airspace opacities. No pleural effusion. No acute fractures. No concerning pulmonary nodules. No definite lymphadenopathy in the chest. 4 mm solid subpleural left lower lobe pulmonary nodule is likely sequela of infection/inflammation in a patient this age. Remainder unremarkable. CT/CT angio chest IMPRESSION: No pulmonary embolism or acute abnormalities in chest. Electronically authenticated by: RAMYA ADKINS Date: 02/21/2023 06:07
== END 2023-02-20 09:30 | disposition home or self-care (01) ==
PROVIDERS: PCP Nurse Practitioner Family; Visit Provider Obstetrics & Gynecology
DX: O26.891 Other specified pregnancy related conditions, first trimester (principal); R12 Heartburn; R07.9 Chest pain, unspecified; Z3A.00 Weeks of gestation of pregnancy not specified
CPT/HCPCS: 71275; Q9967

== ENCOUNTER 2023-02-22 09:00 | Outpatient (OUT) | payer OTHER, SELFPAY ==
--- NOTE | 2023-02-22 09:13 | US_ITS ---
The [address] [address] Patient Name: KRYS MARTINEZ MRN: [id number] date: 1995 Sex: F Assigned Patient Location: US Current Patient Location: US Accession/Order Number: [id number] Exam Date: 02/22/2023 09:15 Report Date: 02/22/2023 09:53 At the request of: MCKENZIE WHIPPLE Procedure: US right upper quadrant EXAM: US right upper quadrant HISTORY: . Right Upper Quadrant Pain R10.11 . COMPARISON: None. TECHNIQUE: Grayscale and color imaging was performed FINDINGS: The pancreas appears normal. Scanning of the liver demonstrates mild increased echogenicity of liver. Liver measures 17 cm. There is color flow in the portal and hepatic veins. Scanning of the gallbladder demonstrate small echogenic foci within the gallbladder with shadowing consistent with multiple small gallstones. No gallbladder wall thickening is noted. Patient had no pain upon scanning over the gallbladder. Common bile duct measures 4 mm. Right kidney measures 9.8 x 4.6 x 4.7 cm. Color-flow is noted. No solid renal cortical masses or hydronephrosis is noted. No fluid is noted in the right upper quadrant. US/US right upper quadrant IMPRESSION: 1. Multiple small gallstones within the gallbladder. No gallbladder wall thickening. Patient had no pain upon scanning over the gallbladder. 2. Increased echogenicity of liver consistent with fatty infiltration of liver. 3. The remainder of the right upper quadrant was unremarkable. Electronically authenticated by: NAWAF FAGAN Date: 02/22/2023 09:53
== END 2023-02-22 09:01 | disposition home or self-care (01) ==
LOC: US 09:00
PROVIDERS: PCP Nurse Practitioner Family; Visit Provider Obstetrics & Gynecology
DX: R10.11 Right upper quadrant pain (principal)
CPT/HCPCS: 76705

== ENCOUNTER 2023-03-01 09:02 | Outpatient (OUT) | payer OTHER, SELFPAY ==
[2023-03-01 10:05] LABS: Alanine Aminotransferase 40 U/L (14-59); Albumin Globulin Ratio 1.1; Albumin Level 3.9 g/dL (3.4-5.0); Alkaline Phosphatase 44 U/L (46-116); Anion Gap 15.1; Aspartate Amino Transferase 20 U/L (15-37); BUN Creatinine Ratio 10.3; Bilirubin Total 0.4 mg/dL (0.2-1.0); Calcium 9.1 mg/dL (8.5-10.1); Carbon Dioxide 23.7 mmol/L (21.0-32.0); Chloride 102 mmol/L (98-107); Estimated GFR (African America >60 (>=60); Estimated GFR (Non-African Ame >60 (>=60); Globulin 3.6 g/dL; Glucose 90 mg/dL (74-106); Potassium 3.8 mmol/L (3.5-5.1); Sodium 137 mmol/L (136-145); Total Protein 7.5 g/dL (6.4-8.2)
== END 2023-03-01 09:03 | disposition home or self-care (01) ==
LOC: LAB 09:03
PROVIDERS: PCP Nurse Practitioner Family; Visit Provider Nurse Practitioner Family
DX: R74.8 Abnormal levels of other serum enzymes (principal)
CPT/HCPCS: 36415; 80053

== ENCOUNTER 2023-03-03 16:01 | Outpatient (REF) | payer OTHER, SELFPAY ==
[2023-03-03 16:08] LABS: Adenovirus F 40/41 NOT DETECTED (NOT DETECTE); Astrovirus NOT DETECTED (NOT DETECTE); Campylobacter NOT DETECTED (NOT DETECTE); Cryptosporidium NOT DETECTED (NOT DETECTE); Cyclospora cayetanensis NOT DETECTED (NOT DETECTE); Entamoeba histolytica NOT DETECTED (NOT DETECTE); Enteroaggregative E.coli NOT DETECTED (NOT DETECTE); Enteropathogenic E.coli NOT DETECTED (NOT DETECTE); Enterotoxigenic E. coli NOT DETECTED (NOT DETECTE); Giardia lamblia NOT DETECTED (NOT DETECTE); Norovirus GI/GII NOT DETECTED (NOT DETECTE); Plesiomonas shigelloides NOT DETECTED (NOT DETECTE); Rotavirus A NOT DETECTED (NOT DETECTE); Salmonella NOT DETECTED (NOT DETECTE); Sapovirus NOT DETECTED (NOT DETECTE); Shiga-like toxin-producing E.C NOT DETECTED (NOT DETECTE); Shigella/Enteroinvasive E.coli NOT DETECTED (NOT DETECTE); Vibrio NOT DETECTED (NOT DETECTE); Vibrio cholerae NOT DETECTED (NOT DETECTE); Yersinia enterocolitica NOT DETECTED (NOT DETECTE)
== END 2023-03-03 16:02 | disposition home or self-care (01) ==
LOC: LAB 16:01
PROVIDERS: PCP Nurse Practitioner Family; Visit Provider Nurse Practitioner Family
DX: R19.7 Diarrhea, unspecified (principal)
CPT/HCPCS: 87507

== ENCOUNTER 2023-03-04 12:20 | Outpatient (OUT) | payer OTHER, SELFPAY ==
--- NOTE | 2023-03-04 12:25 | US_ITS ---
The [address] [address] Patient Name: KRYS MARTINEZ MRN: [id number] date: 1995 Sex: F Assigned Patient Location: US Current Patient Location: US Accession/Order Number: [id number] Exam Date: 03/04/2023 12:30 Report Date: 03/04/2023 15:11 At the request of: MCKENZIE WHIPPLE Procedure: US OB transvaginal EXAMINATION: US OB transvaginal HISTORY: MISSED MENSES COMPARISON: No relevant comparison available. FINDINGS: GESTATIONAL SAC: Present and normal appearing. YOLK SAC: Present and normal appearing. POLE: Present and normal appearing. CARDIAC: Present. UTERUS: Tiny subchorionic hematoma/sequela of implantation bleeding. OVARIES: Right: Normal. Left: Normal. CERVIX: 4.1 cm in length and closed. CUL-DE-SAC: Normal. OTHER: None. AGE BY LMP: 9 weeks 2 days AMY BY LMP: 10/05/2023 AGE BY US CRL: 8 weeks 6 days AMY BY US CRL: 10/08/2023 US/US OB transvaginal IMPRESSION: 1. Single live intrauterine . Electronically authenticated by: CAROLYN WALSH Date: 03/04/2023 15:11
== END 2023-03-04 12:21 | disposition home or self-care (01) ==
LOC: US 12:23
PROVIDERS: PCP Nurse Practitioner Family; Visit Provider Obstetrics & Gynecology
DX: Z34.91 Encounter for supervision of normal pregnancy, unspecified, first trimester (principal)
CPT/HCPCS: 76817

== ENCOUNTER 2023-03-13 11:00 | Outpatient (OUT) | payer OTHER, SELFPAY ==
[2023-03-13 11:15] LABS: Basophils Percent Auto 0.4 % (0.2-2.0); Eosinophils Absolute Auto 0.1 10^3/uL (0.0-0.7); Eosinophils Percent Auto 0.9 % (0.9-7.0); Hematocrit 35.4 % (36.0-48.0); Hemoglobin 11.3 g/dL (12.0-16.0); Immature Granulocytes Abs Auto 0.02 10^3/uL (0.00-0.03); Immature Granulocytes Pct Auto 0.3 % (0.0-0.5); Lymphocytes Absolute Auto 1.7 10^3/uL (1.2-3.8); Lymphocytes Percent Auto 21.6 % (20.5-60.0); Mean Corpuscular HGB Conc 31.9 g/dL (29.9-35.2); Mean Corpuscular Hemoglobin 26.4 pg (26.7-34.0); Mean Corpuscular Volume 82.7 fL (81.0-99.0); Mean Platelet Volume 9.9 fL (9.5-13.5); Monocytes Absolute Auto 0.6 10^3/uL (0.3-0.8); Monocytes Percent Auto 7.6 % (1.7-12.0); Neutrophils Absolute Auto 5.3 10^3/uL (1.4-6.5); Neutrophils Percent Auto 69.2 % (43.0-75.0); Platelet Count 341 10^3/uL (150-450); Red Blood Count 4.28 10^6/uL (4.20-5.40); Red Cell Distribution Width 13.3 % (11.0-15.0); White Blood Count 7.6 10^3/uL (4.0-11.0)
[2023-03-13 11:31] LABS: Estimated Average Glucose 105 mg/dL; Glycohemoglobin A1C 5.3 % (4.5-6.2)
[2023-03-13 11:48] LABS: Thyroid Stimulating Hormone 0.569 uIU/mL (0.358-3.740)
[2023-03-14 08:08] LABS: HBsAg Screen Negative (Negative); HCV Ab Non Reactive (Non Reactive); HIV Ab/p24 Ag Screen Non Reactive (Non Reactive); Rubella Antibodies, IgG 2.03 index (Immune >0.99)
[2023-03-14 09:07] LABS: Rapid Plasma Reagin, Quant Non Reactive (NonRea<1:1)
== END 2023-03-13 11:01 | disposition home or self-care (01) ==
PROVIDERS: PCP Nurse Practitioner Family; Visit Provider Obstetrics & Gynecology
DX: Z34.80 Encounter for supervision of other normal pregnancy, unspecified trimester (principal); N92.6 Irregular menstruation, unspecified
CPT/HCPCS: 36415; 83036; 84443; 85025; 86592; 86706; 86762; 86803; 86850; 86900; 86901; 87086; 87389

== ENCOUNTER 2023-03-29 13:31 | Outpatient (OUT) | payer OTHER, SELFPAY ==
[2023-03-29 13:50] LABS: Basophils Percent Auto 0.5 % (0.2-2.0); Eosinophils Percent Auto 0.4 % (0.9-7.0); Hematocrit 33.8 % (36.0-48.0); Immature Granulocytes Abs Auto 0.04 10^3/uL (0.00-0.03); Immature Granulocytes Pct Auto 0.5 % (0.0-0.5); Lymphocytes Absolute Auto 1.7 10^3/uL (1.2-3.8); Lymphocytes Percent Auto 21.4 % (20.5-60.0); Mean Corpuscular HGB Conc 32.5 g/dL (29.9-35.2); Mean Corpuscular Hemoglobin 26.3 pg (26.7-34.0); Mean Corpuscular Volume 80.9 fL (81.0-99.0); Mean Platelet Volume 9.3 fL (9.5-13.5); Monocytes Absolute Auto 0.6 10^3/uL (0.3-0.8); Monocytes Percent Auto 7.4 % (1.7-12.0); Neutrophils Absolute Auto 5.6 10^3/uL (1.4-6.5); Neutrophils Percent Auto 69.8 % (43.0-75.0); Platelet Count 299 10^3/uL (150-450); Red Blood Count 4.18 10^6/uL (4.20-5.40); Red Cell Distribution Width 13.3 % (11.0-15.0)
[2023-03-29 14:50] LABS: Alanine Aminotransferase 55 U/L (14-59); Albumin Globulin Ratio 0.9; Albumin Level 3.6 g/dL (3.4-5.0); Alkaline Phosphatase 58 U/L (46-116); Anion Gap 12.1; Aspartate Amino Transferase 12 U/L (15-37); BUN Creatinine Ratio 8.1; Bilirubin Total 0.3 mg/dL (0.2-1.0); Carbon Dioxide 26.7 mmol/L (21.0-32.0); Chloride 101 mmol/L (98-107); Estimated GFR (African America >60 (>=60); Estimated GFR (Non-African Ame >60 (>=60); Globulin 3.8 g/dL; Glucose 95 mg/dL (74-106); Lactate Dehydrogenase 119 U/L (81-234); Potassium 3.8 mmol/L (3.5-5.1); Sodium 136 mmol/L (136-145); Total Protein 7.4 g/dL (6.4-8.2)
== END 2023-03-29 13:32 | disposition home or self-care (01) ==
LOC: LAB 13:33
PROVIDERS: PCP Nurse Practitioner Family
DX: E34.0 Carcinoid syndrome (principal)
CPT/HCPCS: 36415; 80053; 83615; 85025

== ENCOUNTER 2023-04-28 19:49 | Emergency (ER) | payer OTHER, SELFPAY ==
[2023-04-28 19:54] VITALS: BP 140/96; PULSE 99; RESP 16; TEMP 36.9; O2SAT 98
[2023-04-28 20:00] VITALS: PULSE 101
--- NOTE | 2023-04-28 20:03 | CT_ITS ---
The [address] [address] Patient Name: KRYS MARTINEZ MRN: [id number] date: 1995 Sex: F Assigned Patient Location: ER Current Patient Location: ED.MAIN Accession/Order Number: [id number] Exam Date: 04/28/2023 20:11 Report Date: 04/28/2023 20:22 At the request of: BRONSON CARRILLO Procedure: CT stroke head/brain wo con EXAM: CT stroke head/brain wo con HISTORY: facial numbness COMPARISON: 01/03/2023. TECHNIQUE: Unenhanced transaxial tomographic sections obtained from the vertex through the posterior fossa. FINDINGS: No midline shift, mass effect or intracranial hemorrhage. The mastoid air cells and visualized paranasal sinuses are clear. CT/CT stroke head/brain wo con IMPRESSION: Unremarkable unenhanced head CT. Electronically authenticated by: DELORES SANCHEZ Date: 04/28/2023 20:22
--- NOTE | 2023-04-28 20:04 | ECG_ITS ---
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
--- NOTE | 2023-04-28 20:06 | ED.NEUROSD1 ---
Documented by User: TROY Rios 04/28/23 21:02 HPI - Neuro Symptoms/Deficit General Chief Complaint: Neuro Symptoms/Deficit Stated Complaint: Extreme Weakness, CVA Symptoms Time Seen by Provider: 04/28/23 19:56 Source: patient and family Mode of arrival: walk-in Limitations: no limitations History of Present Illness HPI Narrative: 27-year-old female who is 4 months and was also diagnosed with ocular migraines today by her eye doctor presents for numbness to the right side of her face and arm that started 20 minutes prior to arrival. states that she had episode of confusion and patient states that she was aware that she could not answer questions. states that she still seems off. she is not aware of any clotting disorders and is not on blood thinners. She states that she did have a headache last night. Denies fever, dizziness, current headache, vision changes, abd or back pain, dysuria, vaginal bleeding, n/v/d, SOB or CP Related Data Home Medications Medication Instructions Recorded Confirmed fluoxetine 40 mg capsule (Prozac) 40 mg PO DAILY 01/03/23 04/28/23 omeprazole 20 mg capsule,delayed 20 mg PO DAILY 04/28/23 04/28/23 release Previous Rx's Medication Instructions Recorded ondansetron HCl 4 mg tablet 4 mg PO Q8H PRN nausea and 02/08/23 vomiting 4 days #10 tabs Allergies Allergy/AdvReac Type Severity Reaction Status Date / Time gabapentin Allergy Mild Vomiting Verified 02/08/23 22:09 Review of Systems ROS Status of ROS 10 or more systems reviewed and unremarkable except as noted in history and below [facility] Social History Smoking status: Never smoker Exam Narrative Exam Narrative: General: alert, no distress, talking in full an complete sentences skin: warm, dry, intact head: normocephalic, atraumatic eyes: EOMI, normal conjunctiva nose: nares patent neck: supple, trachea midline cardiac: +S1/S1. no murmur respiratory: lungs CTA, non-labored, no wheezing, no retractions extremities: FROM x 4, strength +5/5, capillary refill intact neuro: A&Ox3, no focal neurologic deficits, sensory decreased to the right V2 and V3 of the face as well as the right arm psych: appropriate mood and affect, cooperative Constitutional Vital Signs, click to edit/add: Last Vital Signs Temp 98.4 F 04/28/23 19:54 Pulse 91 H 04/28/23 21:26 Resp 19 04/28/23 21:26 BP 130/70 04/28/23 21:26 Pulse Ox 98 04/28/23 21:26 O2 Del Method Room Air 04/28/23 21:26 Course Vital Signs Vital signs: Vital Signs Temperature 98.4 F 04/28/23 19:54 Pulse Rate 99 H 04/28/23 19:54 Respiratory Rate 16 04/28/23 19:54 Blood Pressure 140/96 H 04/28/23 19:54 Pulse Oximetry 98 04/28/23 19:54 Oxygen Delivery Method Room Air 04/28/23 19:54 Temperature 98.4 F 04/28/23 19:54 Pulse Rate 91 H 04/28/23 21:26 Respiratory Rate 19 04/28/23 21:26 Blood Pressure 130/70 04/28/23 21:26 Pulse Oximetry 98 04/28/23 21:26 Oxygen Delivery Method Room Air 04/28/23 21:26 MDM - Neuro Symptoms/Deficit MDM Narrative Medical decision making narrative: NIH 1 due to decreased sensation and she is also and she is therefore not a tPA candidate. Differential includes anxiety versus complex migraine. Unlikely stroke as she was aware that she was confused. Patient is very anxious and crying and will be given Benadryl. EKG sinus tachycardia at a rate of 101. No acute findings on final read of head CT. Potassium 3.4 and will be given 25 p.o. heart tones 150. No other significant abnormalities. Dr. Gross rechecked her and she states that her symptoms have resolved and she is feeling better. She is requesting something to drink. She is to follow-up with the [facility]. disussed consulting neuro for possible admit for MRI brain for possible complex migraine and dr gross states likely anxiety due to resolution of sx. F/u with PCP. afebrile, not tachypneic, not tachycardic, tolerating p.o., not hypoxic, non toxic appearing and ambulating at baseline and hemodynamically stable to be d/c. answered all questions. pt in agreement with tx. educated when to return to ER. Lab Data Labs: Lab Results 04/28/23 Range/Units 20:05 WBC 12.5 H (4.0-11.0) 10^3/uL RBC 4.00 L (4.20-5.40) 10^6/uL Hgb 10.7 L (12.0-16.0) g/dL Hct 33.1 L (36.0-48.0) % MCV 82.8 (81.0-99.0) fL MCH 26.8 (26.7-34.0) pg MCHC 32.3 (29.9-35.2) g/dL RDW 13.0 (11.0-15.0) % Plt Count 324 (150-450) 10^3/uL MPV 9.9 (9.5-13.5) fL Neut % (Auto) 72.0 (43.0-75.0) % Lymph % (Auto) 20.1 L (20.5-60.0) % Wayne % (Auto) 6.5 (1.7-12.0) % Eos % (Auto) 0.8 L (0.9-7.0) % Baso % (Auto) 0.2 (0.2-2.0) % Neut # (Auto) 9.0 H (1.4-6.5) 10^3/uL Lymph # (Auto) 2.5 (1.2-3.8) 10^3/uL Wayne # (Auto) 0.8 (0.3-0.8) 10^3/uL Eos # (Auto) 0.1 (0.0-0.7) 10^3/uL Baso # (Auto) 0.0 (0.0-0.1) 10^3/uL Abs Immat Gran (auto) 0.05 H (0.00-0.03) 10^3/uL Imm/Tot Granulo (auto) 0.4 (0.0-0.5) % Sodium 134 L (136-145) mmol/L Potassium 3.4 L (3.5-5.1) mmol/L Chloride 100 (98-107) mmol/L Carbon Dioxide 24.7 (21.0-32.0) mmol/L Anion Gap 12.7 BUN 5.0 L (7.0-18.0) mg/dL Creatinine 0.62 (0.55-1.02) mg/dL Est GFR ( Amer) >60 (>=60) Est GFR (Non-Af Amer) >60 (>=60) BUN/Creatinine Ratio 8.1 Glucose 93 (74-106) mg/dL Calcium 9.3 (8.5-10.1) mg/dL Magnesium 1.9 (1.8-2.4) mg/dL Total Bilirubin 0.3 (0.2-1.0) mg/dL AST 37 (15-37) U/L ALT 31 (14-59) U/L Alkaline Phosphatase 56 (46-116) U/L Total Protein 7.6 (6.4-8.2) g/dL Albumin 3.4 (3.4-5.0) g/dL Globulin 4.2 g/dL Albumin/Globulin Ratio 0.8 TSH 1.859 (0.358-3.740) uIU/mL Discharge Plan Discharge Chief Complaint: Neuro Symptoms/Deficit Clinical Impression: Facial paresthesia, Paresthesia of right arm, Hypokalemia Patient Disposition: Home, Self-Care Time of Disposition Decision: 21:25 Condition: Good Mode of Transportation: Private Vehicle Prescriptions / Home Meds: No Action ondansetron HCl 4 mg tablet 4 mg PO Q8H PRN (Reason: nausea and vomiting) 4 Days Qty: 10 0RF fluoxetine [Prozac] 40 mg capsule 40 mg PO DAILY omeprazole 20 mg capsule,delayed release(DR/EC) 20 mg PO DAILY Instructions: Migraine Headache (ED), Hypokalemia (ED), Paresthesia (ED) Stand Alone Forms: Portal Instructions Referrals: ELOISE SAMS [Primary Care Provider] - 1 week Discharge Date/Time: 04/28/23 21:32 Documented by User: Yoselyn Gross MD 04/29/23 02:29 HPI - Neuro Symptoms/Deficit General Chief Complaint: Neuro Symptoms/Deficit Stated Complaint: Extreme Weakness, CVA Symptoms Time Seen by Provider: 04/28/23 19:56 Related Data Home Medications Medication Instructions Recorded Confirmed fluoxetine 40 mg capsule (Prozac) 40 mg PO DAILY 01/03/23 04/28/23 omeprazole 20 mg capsule,delayed 20 mg PO DAILY 04/28/23 04/28/23 release Previous Rx's Medication Instructions Recorded ondansetron HCl 4 mg tablet 4 mg PO Q8H PRN nausea and 02/08/23 vomiting 4 days #10 tabs Allergies Allergy/AdvReac Type Severity Reaction Status Date / Time gabapentin Allergy Mild Vomiting Verified 02/08/23 22:09 PFSH PFS Social History Smoking status: Never smoker Exam Constitutional Vital Signs, click to edit/add: Last Vital Signs Temp 98.4 F 04/28/23 19:54 Pulse 91 H 04/28/23 21:26 Resp 19 04/28/23 21:26 BP 130/70 04/28/23 21:26 Pulse Ox 98 04/28/23 21:26 O2 Del Method Room Air 04/28/23 21:26 Course Vital Signs Vital signs: Vital Signs Temperature 98.4 F 04/28/23 19:54 Pulse Rate 99 H 04/28/23 19:54 Respiratory Rate 16 04/28/23 19:54 Blood Pressure 140/96 H 04/28/23 19:54 Pulse Oximetry 98 04/28/23 19:54 Oxygen Delivery Method Room Air 04/28/23 19:54 Temperature 98.4 F 04/28/23 19:54 Pulse Rate 91 H 04/28/23 21:26 Respiratory Rate 19 04/28/23 21:26 Blood Pressure 130/70 04/28/23 21:26 Pulse Oximetry 98 04/28/23 21:26 Oxygen Delivery Method Room Air 04/28/23 21:26 MDM - Neuro Symptoms/Deficit MDM Narrative Medical decision making narrative: NIH 1 due to decreased sensation and she is also and she is therefore not a tPA candidate. Differential includes anxiety versus complex migraine. Unlikely stroke as she was aware that she was confused. Patient is very anxious and crying and will be given Benadryl. EKG sinus tachycardia at a rate of 101. No acute findings on final read of head CT. Potassium 3.4 and will be given 25 p.o. heart tones 150. No other significant abnormalities. Dr. Gross rechecked her and she states that her symptoms have resolved and she is feeling better. She is requesting something to drink. She is to follow-up with the [facility]MI[facility]. disussed consulting neuro for possible admit for MRI brain for possible complex migraine and dr tj states likely anxiety due to resolution of sx. F/u with PCP. afebrile, not tachypneic, not tachycardic, tolerating p.o., not hypoxic, non toxic appearing and ambulating at baseline and hemodynamically stable to be d/c. answered all questions. pt in agreement with tx. educated when to return to ER. This patient was seen and evaluated conjunction with the physician grants and contracts assistant. She has been evaluated recently by ophthalmology due to visual field cuts and was thought to be having ocular migraine headaches. Earlier this evening she started to become very anxious and stated she was having numbness in her right arm and right cheek. She was notably upset upon arrival and was crying. Her neuro exam was otherwise normal. The patient was seen and evaluated by myself. Her CAT scan was normal. Labs were normal. She admits that she has had a lot of problems in her such as sciatica, back pain, headaches and is very anxious. She was formally on Zoloft but has not been taking it since becoming . I explained to her that her CAT scan is normal which makes her feel much better. I repeated her neuro exam is completely normal. Her symptoms of numbness and tingling have resolved. She admits to a mild headache behind her eyes but is otherwise neurologically stable and wishes to be discharged home. I encouraged her to follow up with Dr. Ruano as she may need to resume her anxiety/depression medication despite being . Lab Data Labs: Lab Results 04/28/23 Range/Units 20:05 WBC 12.5 H (4.0-11.0) 10^3/uL RBC 4.00 L (4.20-5.40) 10^6/uL Hgb 10.7 L (12.0-16.0) g/dL Hct 33.1 L (36.0-48.0) % MCV 82.8 (81.0-99.0) fL MCH 26.8 (26.7-34.0) pg MCHC 32.3 (29.9-35.2) g/dL RDW 13.0 (11.0-15.0) % Plt Count 324 (150-450) 10^3/uL MPV 9.9 (9.5-13.5) fL Neut % (Auto) 72.0 (43.0-75.0) % Lymph % (Auto) 20.1 L (20.5-60.0) % Wayne % (Auto) 6.5 (1.7-12.0) % Eos % (Auto) 0.8 L (0.9-7.0) % Baso % (Auto) 0.2 (0.2-2.0) % Neut # (Auto) 9.0 H (1.4-6.5) 10^3/uL Lymph # (Auto) 2.5 (1.2-3.8) 10^3/uL Wayne # (Auto) 0.8 (0.3-0.8) 10^3/uL Eos # (Auto) 0.1 (0.0-0.7) 10^3/uL Baso # (Auto) 0.0 (0.0-0.1) 10^3/uL Abs Immat Gran (auto) 0.05 H (0.00-0.03) 10^3/uL Imm/Tot Granulo (auto) 0.4 (0.0-0.5) % Sodium 134 L (136-145) mmol/L Potassium 3.4 L (3.5-5.1) mmol/L Chloride 100 (98-107) mmol/L Carbon Dioxide 24.7 (21.0-32.0) mmol/L Anion Gap 12.7 BUN 5.0 L (7.0-18.0) mg/dL Creatinine 0.62 (0.55-1.02) mg/dL Est GFR ( Amer) >60 (>=60) Est GFR (Non-Af Amer) >60 (>=60) BUN/Creatinine Ratio 8.1 Glucose 93 (74-106) mg/dL Calcium 9.3 (8.5-10.1) mg/dL Magnesium 1.9 (1.8-2.4) mg/dL Total Bilirubin 0.3 (0.2-1.0) mg/dL AST 37 (15-37) U/L ALT 31 (14-59) U/L Alkaline Phosphatase 56 (46-116) U/L Total Protein 7.6 (6.4-8.2) g/dL Albumin 3.4 (3.4-5.0) g/dL Globulin 4.2 g/dL Albumin/Globulin Ratio 0.8 TSH 1.859 (0.358-3.740) uIU/mL Discharge Plan Discharge Chief Complaint: Neuro Symptoms/Deficit Clinical Impression: Facial paresthesia, Paresthesia of right arm, Hypokalemia Patient Disposition: Home, Self-Care Time of Disposition Decision: 21:25 Condition: Good Mode of Transportation: Private Vehicle Prescriptions / Home Meds: No Action ondansetron HCl 4 mg tablet 4 mg PO Q8H PRN (Reason: nausea and vomiting) 4 Days Qty: 10 0RF fluoxetine [Prozac] 40 mg capsule 40 mg PO DAILY omeprazole 20 mg capsule,delayed release(DR/EC) 20 mg PO DAILY Instructions: Migraine Headache (ED), Hypokalemia (ED), Paresthesia (ED) Stand Alone Forms: Portal Instructions Referrals: ELOISE SAMS [Primary Care Provider] - 1 week Discharge Date/Time: 04/28/23 21:32
[2023-04-28 20:16] LABS: Basophils Percent Auto 0.2 % (0.2-2.0); Eosinophils Absolute Auto 0.1 10^3/uL (0.0-0.7); Eosinophils Percent Auto 0.8 % (0.9-7.0); Hematocrit 33.1 % (36.0-48.0); Hemoglobin 10.7 g/dL (12.0-16.0); Immature Granulocytes Abs Auto 0.05 10^3/uL (0.00-0.03); Immature Granulocytes Pct Auto 0.4 % (0.0-0.5); Lymphocytes Absolute Auto 2.5 10^3/uL (1.2-3.8); Lymphocytes Percent Auto 20.1 % (20.5-60.0); Mean Corpuscular HGB Conc 32.3 g/dL (29.9-35.2); Mean Corpuscular Hemoglobin 26.8 pg (26.7-34.0); Mean Corpuscular Volume 82.8 fL (81.0-99.0); Mean Platelet Volume 9.9 fL (9.5-13.5); Monocytes Absolute Auto 0.8 10^3/uL (0.3-0.8); Monocytes Percent Auto 6.5 % (1.7-12.0); Platelet Count 324 10^3/uL (150-450); White Blood Count 12.5 10^3/uL (4.0-11.0)
[2023-04-28 20:28] LABS: Alanine Aminotransferase 31 U/L (14-59); Albumin Globulin Ratio 0.8; Albumin Level 3.4 g/dL (3.4-5.0); Alkaline Phosphatase 56 U/L (46-116); Anion Gap 12.7; Aspartate Amino Transferase 37 U/L (15-37); BUN Creatinine Ratio 8.1; Bilirubin Total 0.3 mg/dL (0.2-1.0); Calcium 9.3 mg/dL (8.5-10.1); Carbon Dioxide 24.7 mmol/L (21.0-32.0); Chloride 100 mmol/L (98-107); Estimated GFR (African America >60 (>=60); Estimated GFR (Non-African Ame >60 (>=60); Globulin 4.2 g/dL; Glucose 93 mg/dL (74-106); Potassium 3.4 mmol/L (3.5-5.1); Sodium 134 mmol/L (136-145); Total Protein 7.6 g/dL (6.4-8.2)
[2023-04-28 20:35] LABS: Magnesium 1.9 mg/dL (1.8-2.4); Thyroid Stimulating Hormone 1.859 uIU/mL (0.358-3.740)
[2023-04-28] MEDS: POTASSIUM BICARBONATE/CIT 25 MEQ TABLET EFF PO (21:13)
[2023-04-28 21:26] VITALS: BP 130/70; PULSE 91; RESP 19; O2SAT 98
== END 2023-04-28 21:32 | disposition home or self-care (01) ==
PROVIDERS: Physician Assistant; Emergency Provider Emergency Medicine; PCP Nurse Practitioner Family
DX: O26.892 Other specified pregnancy related conditions, second trimester (principal); E87.6 Hypokalemia; R20.2 Paresthesia of skin; Z3A.00 Weeks of gestation of pregnancy not specified
CPT/HCPCS: 36415; 70450; 80053; 81001; 83735; 84443; 85025; 93005; 99285

== ENCOUNTER 2023-06-29 08:26 | Outpatient (OUT) | payer OTHER, SELFPAY ==
[2023-06-29 10:12] LABS: Basophils Absolute Auto 0.1 10^3/uL (0.0-0.1); Basophils Percent Auto 0.6 % (0.2-2.0); Eosinophils Absolute Auto 0.3 10^3/uL (0.0-0.7); Eosinophils Percent Auto 2.7 % (0.9-7.0); Hematocrit 29.5 % (36.0-48.0); Hemoglobin 9.2 g/dL (12.0-16.0); Immature Granulocytes Abs Auto 0.09 10^3/uL (0.00-0.03); Lymphocytes Absolute Auto 1.7 10^3/uL (1.2-3.8); Lymphocytes Percent Auto 17.4 % (20.5-60.0); Mean Corpuscular HGB Conc 31.2 g/dL (29.9-35.2); Mean Corpuscular Hemoglobin 25.6 pg (26.7-34.0); Mean Corpuscular Volume 82.2 fL (81.0-99.0); Mean Platelet Volume 10.1 fL (9.5-13.5); Monocytes Absolute Auto 0.7 10^3/uL (0.3-0.8); Monocytes Percent Auto 7.3 % (1.7-12.0); Neutrophils Absolute Auto 6.7 10^3/uL (1.4-6.5); Platelet Count 323 10^3/uL (150-450); Red Blood Count 3.59 10^6/uL (4.20-5.40); White Blood Count 9.5 10^3/uL (4.0-11.0)
[2023-06-29 11:08] LABS: Glucose 1 Hour 128 mg/dL
== END 2023-06-29 08:27 | disposition home or self-care (01) ==
LOC: LAB 08:27
PROVIDERS: PCP Nurse Practitioner Family; Visit Provider Obstetrics & Gynecology
DX: Z34.90 Encounter for supervision of normal pregnancy, unspecified, unspecified trimester (principal)
CPT/HCPCS: 36415; 82950; 85025

== ENCOUNTER 2023-08-18 07:27 | Outpatient (RCR) | payer OTHER, SELFPAY ==
[2023-08-02 08:00] VITALS: BP 133/81; PULSE 101; RESP 18; TEMP 36.6; O2SAT 99
[2023-08-02] MEDS: IRON SUCROSE COMPLEX 100 MG in 0.9 % SODIUM CHLORIDE 100 ML 420 MG IV (08:24)
[2023-08-04 08:07] VITALS: BP 135/85; PULSE 94; RESP 18; TEMP 35.5; O2SAT 98
[2023-08-04] MEDS: IRON SUCROSE COMPLEX 200 MG in 0.9 % SODIUM CHLORIDE 100 ML 220 MG IV (08:16)
--- NOTE | 2023-08-04 08:19 | PC.NURSE ---
0800 Arrival ambulatory. Alert oriented. States did have some nausea and headache after infusion, otherwise did ok. #22 IV initiated left AC on 1 attempt, tolerated well, excellent blood return. Given warm blanket and drink. 0818 Infusion initiated.
[2023-08-04 09:17] LABS: Basophils Percent Auto 0.4 % (0.2-2.0); Eosinophils Absolute Auto 0.1 10^3/uL (0.0-0.7); Eosinophils Percent Auto 1.1 % (0.9-7.0); Hematocrit 29.6 % (36.0-48.0); Hemoglobin 8.9 g/dL (12.0-16.0); Immature Granulocytes Abs Auto 0.23 10^3/uL (0.00-0.03); Immature Granulocytes Pct Auto 2.1 % (0.0-0.5); Lymphocytes Absolute Auto 1.7 10^3/uL (1.2-3.8); Lymphocytes Percent Auto 15.7 % (20.5-60.0); Mean Corpuscular HGB Conc 30.1 g/dL (29.9-35.2); Mean Corpuscular Hemoglobin 23.7 pg (26.7-34.0); Mean Corpuscular Volume 78.7 fL (81.0-99.0); Mean Platelet Volume 10.2 fL (9.5-13.5); Monocytes Absolute Auto 0.8 10^3/uL (0.3-0.8); Monocytes Percent Auto 7.3 % (1.7-12.0); Neutrophils Absolute Auto 8.1 10^3/uL (1.4-6.5); Neutrophils Percent Auto 73.4 % (43.0-75.0); Platelet Count 327 10^3/uL (150-450); Red Blood Count 3.76 10^6/uL (4.20-5.40); Red Cell Distribution Width 14.3 % (11.0-15.0)
--- NOTE | 2023-08-04 09:26 | PC.NURSE ---
[address] Ruano sent labs to be drawn, called central scheduling, obtained labs. 0855 Labs drawn from [facility], Sent to lab. IV dc'd catheter intact. Released ambulatory
[2023-08-04 09:45] LABS: Alanine Aminotransferase 25 U/L (14-59); Albumin Globulin Ratio 0.6; Albumin Level 2.4 g/dL (3.4-5.0); Alkaline Phosphatase 78 U/L (46-116); Aspartate Amino Transferase 13 U/L (15-37); Bilirubin Direct 0.1 mg/dL (0.0-0.2); Bilirubin Total 0.1 mg/dL (0.2-1.0); Globulin 4.1 g/dL; Total Protein 6.5 g/dL (6.4-8.2)
[2023-08-05 17:17] LABS: Bile Acids 2.6 umol/L (0.0-10.0)
[2023-08-13 08:14] VITALS: BP 114/79; PULSE 103; RESP 18; TEMP 36.2; O2SAT 99
--- NOTE | 2023-08-13 08:17 | PC.NURSE ---
0755 Arrival ambulatory to chair 1 for IV venofer. Has tolerated previous infusions without any issues. # 22 iv inserted rt antecubital. patient tolerated well. given drink and ordered fruit cup.
[2023-08-13] MEDS: IRON SUCROSE COMPLEX 200 MG in 0.9 % SODIUM CHLORIDE 100 ML 220 MG IV (08:23)
[2023-08-16 08:00] VITALS: BP 122/82; PULSE 97; RESP 16; TEMP 36.2; O2SAT 97
[2023-08-16] MEDS: IRON SUCROSE COMPLEX 100 MG in 0.9 % SODIUM CHLORIDE 100 ML 420 MG IV (08:09)
--- NOTE | 2023-08-16 08:30 | PC.NURSE ---
Patient is here for Venofer infusion, she denies any issues or complaints. IV started in her left AC with good blood return. Infusion completed and tolerated well, she denies any complaints. Pt was discharged home ambulatory.
[2023-08-18] MEDS: IRON SUCROSE COMPLEX 200 MG in 0.9 % SODIUM CHLORIDE 100 ML 220 MG IV (08:10)
[2023-08-18 08:17] VITALS: BP 118/70; PULSE 89; RESP 16; TEMP 35.8; O2SAT 98
--- NOTE | 2023-08-18 08:20 | PC.NURSE ---
0800: Pt. to [facility] amb. for iron infusion. Seated in recliner. Pt. relays chronic fatigue and no energy. Denies c/o pain, n/v or dyspnea. VSS. #22 gauge IV initiated to left ac on first attempt. Flushes easily with good blood return. Pt. tolerates without c/o. 0810: IV Venofer initiated at this time. Pt. given water. Denies needs or c/o.
--- NOTE | 2023-08-18 08:38 | PC.NURSE ---
Tolerating infusion without adverse reaction. Denies c/o.
--- NOTE | 2023-08-18 09:40 | PC.NURSE ---
0845: Venofer infusion completed. Pt. without s&s of adverse reaction. IV d/c'd pressure to site. Pt. d/c'd amb. to home.
== END 2023-08-18 23:59 | disposition home or self-care (01) ==
LOC: INF 07:27
PROVIDERS: PCP Nurse Practitioner Family; Visit Provider Obstetrics & Gynecology
DX: O99.013 Anemia complicating pregnancy, third trimester (principal); D64.9 Anemia, unspecified; Z3A.00 Weeks of gestation of pregnancy not specified; O99.713 Diseases of the skin and subcutaneous tissue complicating pregnancy, third trimester; L29.9 Pruritus, unspecified
CPT/HCPCS: 36415; 80076; 82239; 85025; 96365; J1756

== ENCOUNTER 2023-08-20 07:24 | Outpatient (RCR) | payer OTHER, SELFPAY ==
[2023-08-19 00:03] VITALS: BP 118/70; PULSE 89; RESP 16; TEMP 35.8; O2SAT 98
[2023-08-20] MEDS: IRON SUCROSE COMPLEX 200 MG in 0.9 % SODIUM CHLORIDE 100 ML 220 MG IV (08:15)
[2023-08-20 08:17] VITALS: BP 123/80; PULSE 86; RESP 16; TEMP 36.6; O2SAT 97
--- NOTE | 2023-08-20 08:21 | PC.NURSE ---
0800: Pt. to [facility] amb. Seated in recliner. VSS. #24 gauge IV initiated to left ac on first attempt without difficulty. Flushes easily without redness or edema. Pt. tolerated without c/o. 0815: IV Venofer initiated at this time. Breakfast tray ordered for patient.
[2023-08-20 08:47] VITALS: BP 114/78; PULSE 78; RESP 14; O2SAT 98
--- NOTE | 2023-08-20 08:49 | PC.NURSE ---
0845: IV Venofer completed at this time. VSS. IV d/c'd, pressure to site. 0847: Pt. without c/o. D/c'd amb. to home.
== END 2023-08-20 09:36 | disposition home or self-care (01) ==
LOC: INF 07:24
PROVIDERS: PCP Nurse Practitioner Family; Visit Provider Obstetrics & Gynecology
DX: O99.019 Anemia complicating pregnancy, unspecified trimester (principal); D64.9 Anemia, unspecified; Z3A.00 Weeks of gestation of pregnancy not specified
CPT/HCPCS: 96365; J1756

== ENCOUNTER 2023-08-20 11:18 | Observation (INO) | payer OTHER, SELFPAY ==
[2023-08-20] VITALS (9 sets, daily range): BP systolic 90–134; BP diastolic 57–84; PULSE 78–96; RESP 16
[2023-08-20 12:45] LABS: Basophils Absolute Auto 0.1 10^3/uL (0.0-0.1); Basophils Percent Auto 0.5 % (0.2-2.0); Eosinophils Absolute Auto 0.1 10^3/uL (0.0-0.7); Eosinophils Percent Auto 0.9 % (0.9-7.0); Hematocrit 33.7 % (36.0-48.0); Hemoglobin 10.4 g/dL (12.0-16.0); Immature Granulocytes Abs Auto 0.19 10^3/uL (0.00-0.03); Immature Granulocytes Pct Auto 1.9 % (0.0-0.5); Lymphocytes Absolute Auto 1.5 10^3/uL (1.2-3.8); Lymphocytes Percent Auto 15.6 % (20.5-60.0); Mean Corpuscular HGB Conc 30.9 g/dL (29.9-35.2); Mean Corpuscular Hemoglobin 25.3 pg (26.7-34.0); Mean Platelet Volume 10.1 fL (9.5-13.5); Monocytes Absolute Auto 0.9 10^3/uL (0.3-0.8); Monocytes Percent Auto 9.3 % (1.7-12.0); Neutrophils Absolute Auto 7.1 10^3/uL (1.4-6.5); Neutrophils Percent Auto 71.8 % (43.0-75.0); Platelet Count 332 10^3/uL (150-450); Red Blood Count 4.11 10^6/uL (4.20-5.40); Red Cell Distribution Width 20.5 % (11.0-15.0); White Blood Count 9.8 10^3/uL (4.0-11.0)
[2023-08-20 12:47] LABS: Bilirubin Urine NEGATIVE (NEGATIVE); Blood Urine NEGATIVE (NEGATIVE); Clarity Urine CLEAR (CLEAR); Color Urine LT. YELLOW (YELLOW); Glucose Urine UA NEGATIVE (NEGATIVE); Ketones Urine NEGATIVE (NEGATIVE); Leukocyte Esterase Urine SMALL (NEGATIVE); Nitrite Urine NEGATIVE (NEGATIVE); Protein Urine NEGATIVE (NEG/TRACE); Urobilinogen Urine 0.2 EU/dL (0.2-1.0)
[2023-08-20 12:49] LABS: Creatinine Urine Random 21.03 mg/dL (20.00-300.00); Protein Creatinine Ratio Urine 0.29; Total Protein Urine Random <6.0 mg/dL (<=11.9)
[2023-08-20 12:50] LABS: Urine Microscopic Indicated YES
[2023-08-20 12:54] LABS: Bacteria Urine SMALL #/HPF (NONE SEEN); Cast Seen? NONE SEEN #/LPF (NONE SEEN); Crystals Seen? None Seen #/HPF (None Seen); Mucus Urine NONE SEEN (NONE SEEN); RBC Urine 0-2 #/HPF (0-2); Squamous Epithelial Cell Urine MODERATE #/LPF (NONE/RARE); Urine Culture Indicated YES
[2023-08-20 13:23] LABS: Anion Gap 11.5; Carbon Dioxide 23.3 mmol/L (21.0-32.0); Chloride 106 mmol/L (98-107); Glucose 90 mg/dL (74-106); Potassium 3.8 mmol/L (3.5-5.1); Sodium 137 mmol/L (136-145)
[2023-08-20 13:24] LABS: Alanine Aminotransferase 23 U/L (14-59); Albumin Globulin Ratio 0.6; Albumin Level 2.6 g/dL (3.4-5.0); Alkaline Phosphatase 86 U/L (46-116); Aspartate Amino Transferase 18 U/L (15-37); Bilirubin Total 0.1 mg/dL (0.2-1.0); Estimated GFR (African America >60 (>=60); Estimated GFR (Non-African Ame >60 (>=60); Globulin 4.4 g/dL; Uric Acid 4.3 mg/dL (2.6-6.0)
--- NOTE | 2023-08-20 14:06 | PM.OBHP ---
OB - H&P: HPI History of Present Illness Chief complaint: RT UPPER QUAD PAIN : 1 Para: 0 Date of last menstrual period: 33.4 weeks gestation Gestational age based on last menstrual period: same History of Present Dating criteria: LMP confirmed by 2nd trimester US care: good care Ultrasounds: normal mid trimester US Medical complications OB: gastrointestinal Narrative: s/p cholecystectomy 2 months ago while . presents with acute onset of RUQ pain last evening. a/w nausea but no vomiting. not improved by anything. baby moving well. heart tracing CAT I, no contractions. membranes intact. CMP normal. Urine P:C ratio 0.29. 24 urine for TP and creatinine started. zofran given for nausea IV. dilaudid 1 mg given IV for pain. NPO pending further medical evaluation. discussed situation with radiologist who recommended not starting with MRI but obtaining RUQ ultrasound and if there are abnormal findings, then obtaining a CT scan of the abdomen. Labs Narrative: please refer to chart for these results Review of Systems ROS Status of ROS: 10 or more systems reviewed and unremarkable except as noted in history and below Gastrointestinal: Reports: abdominal pain (RUQ, PUTS FINGER ON POINT OF PAIN JUST BELOW 12TH RIB OVER SURGICAL SITE) PFSH PFSH Social History Smoking status: Never smoker Meds Home Medications and Allergies Home Medications Medication Instructions Recorded Confirmed Type fluoxetine 40 mg capsule (Prozac) 40 mg PO DAILY 01/03/23 04/28/23 History ondansetron HCl 4 mg tablet 4 mg PO Q8H PRN nausea and 02/08/23 02/14/23 Rx vomiting 4 days #10 tabs omeprazole 20 mg capsule,delayed 20 mg PO DAILY 04/28/23 04/28/23 History release Allergies Allergy/AdvReac Type Severity Reaction Status Date / Time gabapentin Allergy Mild Vomiting Verified 02/08/23 22:09 Exam Constitutional Vital Signs, click to edit/add: Last Vital Signs Pulse 78 08/20/23 13:50 Resp 16 08/20/23 12:00 BP 134/84 08/20/23 13:50 Documenting provider has reviewed patient's vital signs: yes Common normals: oriented x3, alert and well nourished General appearance: cooperative Nutritional appearance: overweight Orientation/consciousness: Yes awake, Yes oriented to person, Yes oriented to place and Yes oriented to time HENMT Common normals: normocephalic and head/scalp atraumatic Eye Pupil: PERRL and accommodation reflex normal Neck & C-Spine Common normals: full ROM and supple Respiratory Common normals: normal respiratory effort Auscultation: clear to auscultation bilaterally Cardio Common normals: regular rate and regular rhythm GI Common normals: Normal to inspection, nondistended, normoactive bowel sounds present and soft to palpation Inspection: normal to inspection Palpation: soft and tender (RUQ JUST BELOW 12TH RIB, SLIGHT RADIATION TO BACK, NO REBOUND) Percussion: normal to percussion Common normals: no CVA tenderness Back & Pelvis Common normals: no thoracic nor lumbar tenderness Extremity Common normals: normal to inspection and full ROM Other: TWO BEAT CLONUS LEFT FOOT ONLY, NONE ON RIGHT, REFLEXES NOT HYPER REFLEXIVE, 2 TO 3 PLUS Neuro Common normals: oriented x3, CN's II-XII intact bilaterally, moves all extremities, no focal motor deficits and no sensory deficits noted Sensorium/orientation: awake, alert, oriented to person, oriented to place and oriented to time Motor exam: strength 5/5 throughout Psych Common normals: mental status grossly normal, thought process normal, cooperative, affect normal and speech normal Appearance: grossly normal Results Labs Labs: Short CBC 08/20/23 Range/Units 12:29 WBC 9.8 (4.0-11.0) 10^3/uL Hgb 10.4 L (12.0-16.0) g/dL Hct 33.7 L (36.0-48.0) % Plt Count 332 (150-450) 10^3/uL BMP 08/20/23 12:29 Sodium 137 Potassium 3.8 Chloride 106 Carbon Dioxide 23.3 BUN 3.0 L Creatinine 0.50 L Glucose 90 Calcium 9.0 Liver Function 08/20/23 Range/Units 12:29 Total Bilirubin 0.1 L (0.2-1.0) mg/dL AST 18 (15-37) U/L ALT 23 (14-59) U/L Alkaline Phosphatase 86 (46-116) U/L Albumin 2.6 L (3.4-5.0) g/dL Urine 08/20/23 Range/Units 12:26 Urine Color Lt. yellow (YELLOW) Urine Clarity Clear (CLEAR) Urine pH 7.0 (5.0-9.0) Ur Specific [place] 1.010 (1.005-1.025) Urine Protein Negative (NEG/TRACE) mg/dL Urine Glucose (UA) Negative (NEGATIVE) mg/dL OB - A/P Assessment and Plan (1) Abdominal pain: Assessment and Plan: NOT TOXEMIA, CMP AND CBC WITH DIFF NORMAL, P:C RATIO NORMAL, NO FEBRILE, IS NAUSEATED BUT NOT VOMITING, DISCUSSED BEST IMAGING STUDY WITH RADIOLOGIST LOOKING FOR STONE OR OTHER PATHOLOGY. ADVISED TO BEGINE WITH RUQ ULTRASOUND AND IF NEED BE PROCEED TO CT SCAN Qualifiers: Abdominal location: right upper quadrant Qualified Code(s): R10.11 - Right upper quadrant pain Plan MONITORING, MAY DISCONTINUE FOR RADIOLOGY STUDIES. NPO PENDING FURTHER RESULTS. PAIN MEDICATION AND NAUSEA MEDICATION. WILL DO OBSERVATION ADMIT.
[2023-08-20 14:07] LABS: INR 0.93; Prothrombin Time 9.9 sec (9.0-11.6)
[2023-08-20 14:18] LABS: Partial Thromboplastin Time 29.9 sec (22.3-36.2)
[2023-08-20] MEDS: ONDANSETRON PF 4 MG/2 ML VIAL 6 MG IV (14:27)
--- NOTE | 2023-08-20 14:35 | US_ITS ---
The [address] [address] Patient Name: KRYS MARTINEZ MRN: [id number] date: 1995 Sex: F Assigned Patient Location: [facility] Current Patient Location: [facility] Accession/Order Number: [id number] Exam Date: 08/20/2023 15:00 Report Date: 08/20/2023 15:51 At the request of: JACKELYN JONAS Procedure: US right upper quadrant EXAM: US right upper quadrant HISTORY: Acute abdominal pain, 33 weeks . COMPARISON: 02/22/2023. TECHNIQUE: Real-time ultrasonography of the right upper quadrant was performed. FINDINGS: Liver: Normal echogenicity. No focal hepatic lesions. Gallbladder: Status post interval cholecystectomy compared to prior from 02/22/2023. Bile ducts: There is no intrahepatic or extrahepatic biliary ductal dilation. The common bile duct is within normal limits measuring up to 3.8 mm. Portal vein: The portal vein is patent and demonstrates normal hepatopedal blood flow. Right kidney: The right kidney measures 10.8 cm in length. No hydronephrosis, sonographic evidence of urolithiasis, or focal mass. Pancreas subvisualized. Visualized portions grossly unremarkable. No right upper quadrant ascites. US/US right upper quadrant IMPRESSION: 1. Status post interval cholecystectomy compared to prior right upper quadrant ultrasound from 02/22/2023. 2. No acute findings. No biliary ductal dilatation. Electronically authenticated by: DIVYA QUESADA Date: 08/20/2023 15:51
[2023-08-20] MEDS: 0.9 % SODIUM CHLORIDE 1,000 ML 75 ML IV (15:00)
[2023-08-20] MEDS: ACETAMINOPHEN 1,000 MG/100 ML PREMIX 400 MG IV (15:00)
== END 2023-08-20 16:45 | disposition home or self-care (01) ==
PROVIDERS: Admitting Provider Obstetrics & Gynecology; PCP Nurse Practitioner Family; Visit Provider Obstetrics & Gynecology
DX: O26.893 Other specified pregnancy related conditions, third trimester (principal); R10.11 Right upper quadrant pain; O99.013 Anemia complicating pregnancy, third trimester; D64.9 Anemia, unspecified; Z90.49 Acquired absence of other specified parts of digestive tract; Z3A.33 33 weeks gestation of pregnancy; Z79.899 Other long term (current) drug therapy
CPT/HCPCS: 36415; 59025; 76705; 80053; 81001; 82570; 84156; 84550; 85025; 85610; 85730; 86850; 86900; 86901; 87086; 96365; 96374; 96375; G0378; G0379; J0131; J1756; J2405

== ENCOUNTER 2023-08-21 13:51 | Observation (INO) | payer OTHER, SELFPAY ==
--- OUTSIDE RECORDS SUMMARY | 2023-08-21 13:56 | XMS_ITS | CCD ---
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 Name Role Phone Ava Lundberg Unavailable Unavailable Primary Care Provider Unavailemanuel Sams RN, Erin Primary Care Provider Unavaildanielle Olivas MD, Rodney Unavailable Latrell EMERY, Erin Primary Care Provider Unavaildanielle Olivas MD, Rodney Unavailable Oanh DUPONT, PhD, [facility] Unavailable Cheikh Coelho MD Unavailable ERIN SAMS Primary Care Unavailable ISABEL ., DR TIMMY Sibley Admitting Unavaildanielle HALL ., DR TIMMY Sibley Consulting Unavaila ora HALL ., DR TIMMY Sibley Attending Unavaila ora SAMS, ERIN Primary Care Unavailable ERIN SAMS Consulting Unavailable ERIN SAMS Attending Unavailable ERIN SAMS Admitting Unavailable ERIN SAMS Attending Unavailable DR CAROLYN WALSH Consulting Unavailable LATRELL, ERIN Primary Care Unavailable ERIN SAMS Admitting Unavailable ERIN SAMS Consulting Unavailable LATRELL, ERIN Primary Care Unavailable IAN LOPEZ Admitting Unavailable IAN LOPEZ Attending Unavailable TIMMY SHAY Unavailable ELIAS ARMANDO Consulting Unavailable LATRELL, ERIN Primary Care Unavailable DR CAROLYN WALSH Consulting Unavailable ERIN SAMS Attending Unavailable ERIN SAMS Admitting Unavailable ERIN SAMS Consulting Unavailable LATRELL, ERIN Primary Care Unavailable SARAHI OLIVA Attending Unavailable SARAHI OLIVA Admitting Unavailable SARAHI OLIVA Consulting Unavailable LATRELL, ERIN Primary Care Unavailable BRI, DR JACOBO Admitting Unavailable MISC, DR DOCTOR Consulting Unavailable MISC, DR DOCTOR Attending Unavailable LATRELLERIN Consulting Unavailable LATRELL, ERIN Attending Unavailable LATRELL, ERIN Admitting Unavailable LATRELL, ERIN Primary Care Unavailable MISC, DOCTOR Admitting Unavailable LATRELL, ERIN Primary Care Unavailable MISC, DOCTOR Attending Unavailable MISC, DR JACOBO Consulting Unavailable LATRELL, ERIN Consulting Unavailable LATRELL, ERIN Attending Unavailable LATRELL, ERIN Admitting Unavailable LATRELL, ERIN Primary Care Unavailable MISC, DR JACOBO Admitting Unavailable MISC, DR JACOBO Consulting Unavailable MISC, DOCTOR Attending Unavailable LATRELL, ERIN Primary Care Unavailable LATRELL, ERIN Primary Care Unavailable MISC, DR JACOBO Admitting Unavailable MISC, DR JACOBO Consulting Unavailable MISC, DR JACOBO Attending Unavailable GRILLIS ., DR TIMMY Sibley Admitting Unavaila ble GRILLIS ., DR TIMMY Sibley Consulting Unavaila ble GRILLIS ., DR TIMMY Sibley Attending Unavaila ble LATRELL, ERIN Primary Care Unavailable FROYLAN EVANGELISTA Consulting Unavailable CHEIKH BOUCHER Consulting Unavailable LATRELL, ERIN Primary Care Unavailable ADIS, DR SARAHI Quarles Attending Unavailable ADIS, DR SARAHI Quarles Admitting Unavailable ADIS, DR SARAHI Quarles Consulting Unavailable LATRELL, ERIN Primary Care Unavailable GRILLIS ., DR TIMMY Sibley Consulting Unavaila ble GRILLIS ., DR TIMMY Sibley Attending Unavaila ble GRILLIS ., DR TIMMY Sibley Admitting Unavaila ble ZIEBER, DR CAROLYN Quarles Consulting Unavailable CHAY ., DR CARMONA Consulting Unavailable AGUBOSIM, JOSÉ LUIS Consulting Unavailable MISC, DR JACOBO Admitting Unavailable LATRELL, ERNI Primary Care Unavailable MISC, DR JACOBO Consulting Unavailable MISC, DR JACOBO Attending Unavailable LATRELL, ERIN Consulting Unavailable LATRELL, ERIN Attending Unavailable LATRELL, ERIN Primary Care Unavailable LATRELL, ERIN Admitting Unavailable Rodney Olivas MD Unavailable Oanh DUPONT, PhD, Suman Naylor Unavailable Cheikh Coelho MD Unavailable [phone] Erin Sams CNP Primary Care Provider LATRELL, ERIN Primary Care Unavailable JORDAN, ANDREAS Referring Unavailable JORDAN, ANDREAS Attending Unavailable CARLOS LYMAN Referring Unavailable SUMAN BAKER Attending Unavailable LATRELL, ERIN Primary Care Unavailable JORDAN, ANDREAS Attending Unavailable JORDAN, ANDREAS Referring Unavailable LATRELL, ERIN Primary Care Unavailable JORDAN, ANDREAS Referring Unavailable MORALEZ, YE Attending Unavailable LATRELL, ERIN Primary Care Unavailable SELF, SELF Referring Unavailable CARLOS LYMAN Attending Unavailable LATRELL, ERIN Primary Care Unavailable SELF, SELF Referring Unavailable JORDAN, ANDREAS Attending Unavailable LATRELL, ERIN Primary Care Unavailable ERIN STONER Attending Unavailable JORDAN, ANDREAS Referring Unavailable LATRELL, ERIN Primary Care Unavailable CHEIKH COELHO Attending Unavailable MORALEZ, YE Referring Unavailable LATRELL, ERIN Primary Care Unavailable SELF, SELF Referring Unavailable CARLOS LYMAN Attending Unavailable LATRELL, ERIN Primary Care Unavailable MORALEZ, YE Attending Unavailable MORALEZ, YE Referring Unavailable LATRELL, ERIN Primary Care Unavailable MORALEZ, YE Referring Unavailable MORALEZ, YE Attending Unavailable LATRELL, ERIN Primary Care Unavailable LATRELL, ERIN S Primary Care Unavailable FARSHAD VIGIL Attending Unavailable JORDAN, ANDREAS Referring Unavailable LATRELL, ERIN S Primary Care Unavailable SUMAN BAKER Attending Unavailable SUMAN BAKER Referring Unavailable LATRELL, ERIN S Primary Care Unavailable SUMAN BAKER Attending Unavailable SELF, SELF Referring Unavailable LATRELL, ERIN S Primary Care Unavailable JORDAN, ANDREAS Referring Unavailable JORDAN, ANDREAS Attending Unavailable LATRELL, ERIN S Primary Care Unavailable JORDAN, ANDREAS Referring Unavailable JORDAN, ANDREAS Attending Unavailable JORDAN, ANDREAS Attending Unavailable JORDAN, ANDREAS Referring Unavailable LATRELL, ERIN Primary Care Unavailable JORDAN, ANDREAS Attending Unavailable JORDAN, ANDREAS Referring Unavailable LATRELL, ERIN Primary Care Unavailable MORALEZ, YE Attending Unavailable MORALEZ, YE Referring Unavailable LATRELL, ERIN Primary Care Unavailable CARLOS LYMAN Referring Unavailable JORDAN, ANDREAS Attending Unavailable LATRELL, ERIN Primary Care Unavailable LATRELL, ERIN Primary Care Unavailable SUMAN BAKER Attending Unavailable SUMAN BAKER Admitting Unavailable SELF, SELF Referring Unavailable CONSULT, ANESTHESIA PA[facility] MED Consulting Neema vailable SUMAN BAKER Attending Unavailable JORDAN, ANDREAS Referring Unavailable LATRELL, ERIN Primary Care Unavailable MORALEZ, YE Attending Unavailable MORALEZ, YE Referring Unavailable LATRELL, ERIN Primary Care Unavailable JORDAN, ANDREAS Referring Unavailable CHAYO SUERO Attending Unavailable LATRELL, ERIN Primary Care Unavailable MORALEZ, YE Referring Unavailable MORALEZ, YE Attending Unavailable LATRELL, ERIN Primary Care Unavailable LATRELL, ERIN Primary Care Unavailable ERIN SAMS Primary Care Unavailable SUMAN BAKER Attending Unavailable SELF, SELF Referring Unavailable MCKENZIE WHIPPLE Attending Unavailable LIZBET CAST Attending Unavailable MCKENZIE WHIPPLE Attending Unavailable Allergies Allergy Classification Reported Allergen(s) Allergy Type Date of Onset Reaction(s) Facility (8 sources) gabapentin Drug Allergy 10-07-2022 Nausea Only [facility] Medications Current Medications Medication Drug Class(es) Dates Sig (Normalized) Sig (Original) amylase 832083 unt / lipase 74257 unt / protease 116501 unt delayed release oral capsule (8 sources) Start: 09-10-2022 Pancrelipase, Phr-Yoto-Bkdw, (Creon) 40988-307678 units Cap DR Ana Maria Indications: Exocrine pancreatic insufficiency Take two caps with each meal and one cap with each snack 210 capsule 1 09/10/2022 Active ARIPiprazole (1 source) Atypical Antipsychotic Abilify Active busPIRone (1 source) BuSpar Active cholecalciferol 0.01 mg oral tablet (8 sources) Vitamin D take 1 tablet by mouth once daily cholecalciferol 10 MCG (400 UNIT) tablet Take 1 tablet by mouth daily. 0 Active cyproheptadine hydrochloride 4 mg oral tablet (8 sources) Start: 07-08-2022 take 1 tablet by mouth four times daily as needed Cyproheptadine 4 MG tablet Take 1 tablet by mouth 4 times daily as needed for Other (flushing). Flushing: periactin 4 mg every 6 hours as needed. Will start @ night as it can cause dizziness, drowsiness 60 tablet 3 07/08/2022 Active 0.4 ml enoxaparin sodium 100 mg/ml prefilled syringe (16 sources) Low Molecular Weight Heparin Start: 05-29-2022 End: 06-23-2022 Enoxaparin Sodium 40 MG/0.4ML injection Indications: DVT/PE prophylaxis Inject one syringe (0.4 mL) under the skin every 24 hours. 10 mL 0 05/29/2022 Active Start: 05-22-2022 End: 05-29-2022 Enoxaparin Sodium (LOVENOX) injection 40 mg lamoTRIgine 100 mg oral tablet (8 sources) Mood Stabilizer, Anti-epileptic Agent lamoTRIgine 100 MG tablet daily. 0 Active take 2 tablets by mouth once kayden ly lamoTRIgine 25 MG tablet Take 2 tablets by mouth daily. 0 Active Magnesium Hydroxide (2 sources) Magnesium Hydrox anthony (MILK OF MAGNESIA PO) Take by mouth as needed. 0 Active Multiple Vitamin (multivitamin) capsule (8 sources) take 1 capsule by mouth once daily Multiple Vitamin (multivitamin) capsule Take 1 capsule by mouth daily. 0 Active nitrofurantoin, macrocrystals 25 mg / nitrofurantoin, monohydrate 75 mg oral capsule (1 source) Nitrofuran Antibacterial Start: 022 take 1 capsule by mouth every twelve hours Macrobid 100 MG 1 capsule with food Orally every 12 hrs for 5 days Dec, Active octreotide 20 mg injection (8 sources) Somatostatin Analog Start: 023 Octreotide acetate 20 MG Kit injection Indications: Carcinoid syndrome , Primary malignant neuroendocrine tumor of appendix Inject 20 mg intramuscularly every 28 days. Diagnosis code: E34.0 1 kit 11 09/03/2022 Active omeprazole 20 mg delayed release oral capsule (15 sources) Proton Pump Inhibitor omeprazole [address] capsule Take 1 capsule by mouth as needed. 0 Active ondansetron 4 mg oral tablet (12 sources) Serotonin-3 Receptor Antagonist Start: 023 take 1 tablet by mouth every eight hours as needed Ondansetron 4 MG tablet Take 1 tablet by mouth every 8 hours as needed for Nausea / Vomiting. 60 tablet 1 11/25/2022 Active take 1 tablet by jodi th every eight hours as needed Ondansetron 4 MG tablet Take 4 mg by jodi th every 8 hours as needed for Nausea / Vomiting. 0 Active oxyCODONE hydrochloride 5 mg oral tablet (14 sources) Opioid Agonist Start: 05-28-2022 End: 05-29-2022 take 1 tablet by mouth every four hours as needed oxyCODONE (ROXICODONE) tablet 5 mg Start: 05-22-2022 End: 06-03-2022 take 1 tablet by mouth every four hours as needed for pain oxyCODONE 5 MG tablet Indications: Primary malignant neuroendocrine tumor of appendix Take 1 tablet by mouth every 4 hours as needed for Severe Pain for up to 5 days. 30 tablet 0 05/28/2022 Active phenazopyridine hydrochloride 200 mg oral tablet (1 source) Start: 12-22-2021 take 1 tablet by mouth every eight hours Pyridium 200 MG 1 tablet after meals Orally Three times a day for 2 day(s) Dec, Active pregabalin 75 mg oral capsule (5 sources) Start: 10-22-2022 End: 04-20-2023 take 1 capsule by mouth at bedtime pregabalin 75 MG capsule Indications: Fibromyalgia muscle pain Take 1 capsule by mouth at bedtime. 30 capsule 11 10/22/2022 04/20/2023 Active Probiotic Product (PROBIOTIC DAILY PO) (12 sources) take 1 tablet by mouth once daily Probiotic Product (PROBIOTIC DAILY PO) Take 1 tablet by mouth daily. 0 Active vancomycin 125 mg oral capsule (4 sources) Glycopeptide Antibacterial take 1 capsule by mouth four times daily Vancomycin 125 MG capsule Take 125 mg by mouth 4 times daily. 0 Active Completed/Discontinued Medications Medication Drug Class(es) Dates Sig (Normalized) Sig (Original) acetaminophen 325 mg oral tablet (19 sources) Start: 05-26-2022 End: 05-29-2022 acetaminophen (TYLENOL) tablet 975 mg Start: 05-25-2022 End: 05-26-2022 acetaminophen (TYLENOL) oral solution 975 mg Start: 05-22-2022 End: 05-25-2022 acetaminophen (TYLENOL) tabl et 650 mg Start: 05-22-2022 End: 05-22-2022 acetaminophen (TYLENOL) tabl et 975 mg take 1 tablet by jodi th every six hours as needed acetaminophen 500 MG tablet Take 1 tablet by mouth every 6 hours as needed for Mild Pain. 0 Active 500 ml albumin human, shelter 50 mg/ml injection (1 source) Human Serum Albumin Start: 05-24-2022 End: 05-24-2022 albumin human 5 % injection 25 g barium sulfate (READI-CAT) 2 % oral susp 900 mL (1 source) Start: 03-31-2022 End: 03-31-2022 barium sulfate (READI-CAT) 2 % oral susp 900 mL benzocaine 15 mg / menthol 3.6 mg oral lozenge (1 source) Standardized Chemical Allergen Start: 05-23-2022 End: 05-29-2022 benzocaine-menthol (CEPACOL) 15-3.6 MG per lozenge 1 lozenge bisacodyl 5 mg delayed release oral tablet (2 sources) Stimulant Laxative Start: 04-23-2022 End: 06-09-[address] Take all 4 tablets at 11am the day before surgery 4 tablet 0 04/23/2022 06/09/2022 Discontinued (Therapy completed) bupivacaine (MARCAINE) 0.125% and fentaNYL (SUBLIMAZE) 4 mcg/mL epidural (1 source) Start: 05-22-2022 End: 05-28-2022 bupivacaine (MARCAINE) 0.125% and fentaNYL (SUBLIMAZE) 4 mcg/mL epidural calcium chloride 0.0014 meq/ml / potassium chloride 0.004 meq/ml / sodium chloride 0.103 meq/ml / sodium lactate 0.028 meq/ml injectable solution (2 sources) Start: 05-23-2022 End: 05-23-2022 lactated ringers IV solution 1,000 mL Start: 05-22-2022 End: 05-22-2022 lactated ringers IV solution Citalopram (1 source) Serotonin Reuptake Inhibitor CeleXA Not-Taking diphenhydrAMINE (BENADRYL) injection 25 mg (1 source) Start: 05-22-2022 End: 05-29-2022 diphenhydrAMINE (BENADRYL) injection 25 mg FLUoxetine 40 mg oral capsule (15 sources) Serotonin Reuptake Inhibitor Start: 05-25-2022 End: 06-09-2022 FLUoxetine (PROZAC) capsule 40 mg take 2 capsules by mouth once da buck FLUoxetine 20 MG capsule Take 2 capsules by mouth daily. 0 Active PROzac Active gabapentin 100 mg oral capsule (5 sources) Anti-epileptic Agent Start: 09-11-2022 End: 11-10-2022 take 2 capsules by mouth three times daily Gabapentin (Neurontin) 100 MG capsule Indications: Primary malignant neuroendocrine tumor of appendix , Low grade mucinous neoplasm of appendix , Neuropathic pain Take 2 capsules by mouth 3 times daily. 180 capsule 1 09/11/2022 10/22/2022 Discontinued (Therapy completed) Start: 05-22-2022 End: 05-22-2022 gabapentin (NEURONTIN) capsu le 800 mg Gallium Ga 68 Dotatate (Netspot) 0.5-5.94 millicurie (1 source) Start: 08-19-2022 End: 08-19-2022 Gallium Ga 68 Dotatate (Netspot) 0.5-5.94 millicurie 500 ml glucose 50 mg/ml / potassium chloride 0.02 meq/ml / sodium chloride 4.5 mg/ml injection (1 source) Start: 05-22-2022 End: 05-28-2022 dextrose 5% and sodium chloride 0.45% 1,000 ml with potassium chloride 20 mEq premix IV solution 1 ml heparin sodium, porcine 5000 unt/ml prefilled syringe (1 source) Unfractionated Heparin, Anti-coagulant Start: 05-22-2022 End: 05-22-2022 heparin injection 5,000 Units Ibuprofen (8 sources) Nonsteroidal Anti-inflammatory Drug Start: 05-26-2022 End: 05-29-2022 ibuprofen (MOTRIN) tablet 600 mg Start: 05-25-2022 End: 05-26-2022 ibuprofen (ADVIL;MOTRIN) ora l suspension 600 mg Start: 05-22-2022 End: 05-25-2022 ibuprofen (MOTRIN) tablet 60 0 mg take 1 tablet by jodi th every six hours as needed Ibuprofen 200 MG tablet Take 1 tablet by mouth every 6 hours as needed for Mild Pain. 0 Active iodixanol (VISIPAQUE) inject ion 320 mg/mL for [facility] (1 source) Start: 03-31-2022 End: 03-31-2022 iodixanol (VISIPAQUE) inject ion 320 mg/mL for [facility] Iohexol (OMNIPAQUE) 300 MG/M L vial 50 mL (1 source) Start: 08-19-2022 End: 08-19-2022 Iohexol (OMNIPAQUE) 300 MG/M L vial 50 mL iohexol (OMNIPAQUE) 350 MG/M L injection 1-171 mL (3 sources) Start: 10-22-2022 End: 10-22-2022 iohexol (OMNIPAQUE) 350 MG/M L injection 1-171 mL Start: 08-19-2022 End: 08-19-2022 iohexol (OMNIPAQUE) 350 MG/M L injection 1-171 mL 50 ml magnesium sulfate 80 m g/ml injection (5 sources) Start: 05-28-2022 End: 05-28-2022 Magnesium Sulfate 4 g in sterile water 50 ml premix IVPB Start: 05-25-2022 End: 05-27-2022 magnesium sulfate 1 g in dex trose 5% 100 mL premix IVPB Start: 05-22-2022 End: 05-22-2022 Magnesium Sulfate 4 g in jeri rile water 50 ml premix IVPB OLANZapine 5 mg disintegrating oral tablet (5 sources) Atypical Antipsychotic Start: 05-25-2022 End: 05-29-2022 take 1 tablet by mouth once daily at bedtime 5 mg, Oral, DAILY AT BEDTIME, First dose on Wed05/25/22 at 2100, Until Discontinued Administer intact tablet to dissolve in mouth; do not split, crush, or chew. End: 06-09-2022 take 1 tablet by mouth at bedtime OLANZapine 5 MG tablet Take 5 mg by mouth At bedtime. 0 06/09/2022 Discontinued (Therapy completed) ondansetron 4mg/2ml (ZOFRAN) injection 4 mg (1 source) Start: 05-22-2022 End: 05-29-2022 take 4 mg intravenously every six hours as needed ondansetron 4mg/2ml (ZOFRAN) injection 4 mg pantoprazole 40 mg delayed release oral tablet (2 sources) Proton Pump Inhibitor Start: 05-28-2022 End: 05-29-2022 pantoprazole (PROTONIX) tablet DR 40 mg Start: 05-23-2022 End: 05-28-2022 pantoprazole (PROTONIX) inje ction 40 mg phenol 14 mg/ml mouthwash (1 source) Start: 05-22-2022 End: 05-29-2022 phenol (CHLORASEPTIC) 1.4 % oral spray 2 spray polyethylene glycol 3350 [id number] mg powder for oral solution (2 sources) Osmotic Laxative Start: 04-23-2022 End: 06-09-2022 polyethylene glycol 17 GM/SCOOP Powder powder 11 AM: Take entire contents over 2 hours as instructed. 250 g 0 04/23/2022 06/09/2022 Discontinued (Therapy completed) 100 ml potassium chloride 0.1 meq/ml injection (1 source) Start: 05-22-2022 End: 05-22-2022 potassium chloride 10 mEq in sterile water 100 ml premix IVPB sennosides, shelter 8.6 mg oral tablet (3 sources) Start: 05-27-2022 End: 06-09-2022 take 1 tablet by mouth once daily as needed for constipation senna 8.6 MG tablet Take 1 tablet by mouth daily as needed for Constipation. Continue stool softeners while on narcotics. Hold for loose stools. 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] 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-2022 Chronic Gastrointestinal hemorrhage (2 sources) Hemorrhage of anus and rectum; Translations: [Hemorrhage of anus and rectum] Onset: 03-11-2023 Episodic Genitourinary symptoms and ill-defined conditions (2 sources) Increased frequency of urination; Translations: [Frequency of micturition] Onset: 12-22-2021 Resolved: 12-22-2021 Episodic Malaise and fatigue (4 sources) Other fatigue; Translations: [OTHER FATIGUE] Onset: 10-02-2022 Episodic Malignant neoplasm without specification of site (20 sources) Primary malignant neuroendocrine neoplasm of appendix; Translations: [Other malignant neuroendocrine tumors] Onset: 04-21-2022 Chronic Menstrual disorders (2 sources) Menstrual period late; Translations: [Irregular menstruation, unspecified] Onset: 12-22-2021 Resolved: 12-22-2021 Chronic Mood disorders (1 source) Major depressive disorder, single episode, unspecified; Translations: [NONA DEPRESS D/O SINGLE EPIS UNS] Onset: 04-09-2022 Chronic Neoplasms of unspecified nature or uncertain behavior (4 sources) Neoplasm of uncertain behavior of appendix; Translations: [Neoplasm of appendix] Onset: 10-07-2022 03-09-2023 Episodic Nonmalignant breast conditions (5 sources) Unspecified lump in unspecified breast; Translations: [Solitary cyst of left breast] Onset: 09-23-2022 Episodic Nutritional deficiencies (1 source) Vitamin D deficiency, unspecified; Translations: [VITAMIN D DEFICIENCY UNSPECIFIED] Onset: 09-04-2022 Chronic Other connective tissue disease (1 source) Fibromyalgia; Translations: [Fibromyalgia] Episodic Other endocrine disorders (12 sources) Carcinoid syndrome; 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] Onset: 09-03-2022 Chronic Other endocrine disorders (4 sources) Carcinoid syndrome; 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] Onset: 09-03-2022 Chronic Other lower respiratory disease (2 sources) Dyspnea; Translations: [Shortness of breath] Episodic Other nervous system disorders (1 source) Postoperative pain ; Translations: [Other acute postprocedural pain] Episodic Other nutritional; endocrine; and metabolic disorders (7 sources) Obese class I; Translations: [Obesity, unspecified] Onset: 10-22-2022 10-22-2022 Chronic Unclassified (1 source) CONTACT W/AND (SUSP) EXPOS COVID-19; Translations: [CONTACT W/AND (SUSP) EXPOS COVID-19] Onset: 04-06-2022 Past or Other Problems Problem Classification Problem Date Documented Da te Episodic/Chronic Abdominal pain (7 sources) Unspecified abdominal pain; Translations: [Right lower quadrant pain] Onset: 02-03-2022 Episodic Appendicitis and other appendiceal conditions (1 source) Unspecified acute appendicitis; Translations: [UNSPECIFIED ACUTE APPENDICITIS] Onset: 02-10-2022 Episodic Cardiac dysrhythmias (7 sources) Tachycardia; Translations: [Tachycardia, unspecified] Onset: 10-10-2022 Episodic Immunizations and screening for infectious disease (3 sources) Raised antinuclear antibody; Translations: [Raised antibody titer] Onset: 10-07-2022 Episodic Mood disorders (12 sources) Mood disorders Onset: 06-09-2022 Resolved: 12-16-2022 06-09-2022 Nausea and vomiting (1 source) Nausea; Translations: [NAUSEA] Onset: 08-14-2022 Episodic Other aftercare (1 source) Other long term acute care registered nurse (current) drug therapy; Translations: [OTH BACK END ARCHITECT CURRENT DRUG THERAPY] Onset: 04-09-2022 Episodic Other and unspecified benign neoplasm (4 sources) Other benign neuroendocrine tumors; Translations: [OTHER BENIGN NEUROENDOCRINE TUMORS] Onset: 04-08-2022 Episodic Other and unspecified benign neoplasm (1 source) Benign carcinoid tumor of the appendix; Translations: [BENIGN CARCINOID TUMOR THE APPENDIX] Onset: 02-10-2022 Episodic Other connective tissue disease (5 sources) Pain in right leg; Translations: [PAIN IN RIGHT LEG] Onset: 04-29-2022 Episodic Other connective tissue disease (2 sources) Fibromyalgia; Translations: [Fibromyalgia] Onset: 10-22-2022 Episodic Other gastrointestinal disorders (4 sources) Diarrhea, unspecified; Translations: [DIARRHEA UNSPECIFIED] Onset: 06-03-2022 Episodic Other lower respiratory disease (2 sources) Shortness of breath; Translations: [Shortness of breath] Onset: 10-22-2022 Episodic Other nervous system disorders (2 sources) Other acute postprocedural pain; Translations: [Other acute postprocedural pain] Onset: 05-22-2022 Episodic Other screening for suspected conditions (not mental disorders or infectious disease) (4 sources) Encounter for screening for malignant neoplasm of cervix; Translations: [ENC SCREENING MALIG NEOPLASM CERV] Onset: 08-05-2022 Episodic Ovarian cyst (1 source) Unspecified ovarian cyst, left side; Translations: [UNSPECIFIED OVARIAN CYST LEFT SIDE] Onset: 02-10-2022 Episodic Residual codes; unclassified (1 source) Acquired absence of other specified parts of digestive tract; Translations: [ACQ ABSENCE OTH PART DIGESTV TRACT] 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-2022 Episodic Urinary tract infections (1 source) Acute cystitis without hematuria Onset: 12-22-2021 Resolved: 12-22-2021 Episodic Results Test Name Value Interpretation Reference Range Facility CHROMOGRANIN Aon 03-11-2023 Chromogranin A <20 Normal <93 [facility] Comment on above: Result Comment: ADDITIONAL INFORMATION This test was developed and its performance characteristics determined by [facility] in a manner consistent with CLIA requirements. This test has not been cleared or approved by the U.S. Food and Drug Administration. In some immunoassays, the presence of unusually high concentrations of analyte may result in a high-dose hook effect. This may result in a lower or even normal measured analyte concentration. If the reported result is inconsistent with the clinical presentation, the laboratory should be alerted for troubleshooting. For diagnostic purposes, these immunoassay results should always be assessed in conjunction with the patients medical history, clinical examination and other findings. The testing method is a homogeneous time-resolved immunofluorescent assay manufactured by [employer] and performed on the [employer] Kryptor Compact Plus. Values obtained with different assay methods or kits may be different and cannot be used interchangeably. Test results cannot be interpreted as absolute evidence for the presence or absence of malignant disease. Test Performed by: [facility] [address] [place] [address] Tester Wafer Substrate: Ed Russo M.D. 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 CONTRAST: None FINDINGS: Abdomen: Liver: Liver is normal in size, morphology and signal characteristics. No focal lesions. Portal vein is patent. Gallbladder and biliary tree: The gallbladder is well distended with bile and a small amount of sludge. No gallbladder wall thickening or pericholecystic fluid. The common bile duct and intrahepatic biliary tree are normal in caliber. Spleen: Spleen is normal in size and signal characteristics. No focal lesions. Pancreas: Pancreas is normal in morphology and signal characteristics. No focal lesions or ductal dilatation. Adrenals: Adrenal glands are unremarkable. Kidneys: Kidneys are normal in size and signal. There is no hydronephrosis. Retroperitoneal/Lymp h Nodes/Vasculature: No abdominal/retroperit fleming adenopathy is identified. Abdominal aorta and its visualized branches are patent. Mesenteric vasculature is patent. GI Tract: Postoperative changes from prior right hemicolectomy and enterocolonic anastomosis. No definite masslike thickening is visualized in the abdomen and pelvis. No dilated bowel loops. No abnormal areas of diffusion restriction. . Previously seen tiny nonenlarged lymph node in the anterior left abdomen is not well visualized on this exam. Pelvis: Bladder: Bladder distends normally. Pelvic Organs: Suboptimal evaluation of the gravid uterus. Osseous Structures: Visualized bony structures reveal normal marrow signal. IMPRESSION: 1. Stable postoperative changes from right hemicolectomy. No definite evidence of recurrence or distant disease. 2. The previously seen lymph node in the anterior left hemiabdomen is not well visualized on this exam. Normal [facility] IMPRESSION: 1. Stable postoperative changes from right hemicolectomy. No definite evidence of recurrence or distant disease. 2. The previously seen lymph node in the anterior left hemiabdomen is not well visualized on this exam. 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 CONTRAST: None FINDINGS: Abdomen: Liver: Liver is normal in size, morphology and signal characteristics. No focal lesions. Portal vein is patent. Gallbladder and biliary tree: The gallbladder is well distended with bile and a small amount of sludge. No gallbladder wall thickening or pericholecystic fluid. The common bile duct and intrahepatic biliary tree are normal in caliber. Spleen: Spleen is normal in size and signal characteristics. No focal lesions. Pancreas: Pancreas is normal in morphology and signal characteristics. No focal lesions or ductal dilatation. Adrenals: Adrenal glands are unremarkable. Kidneys: Kidneys are normal in size and signal. There is no hydronephrosis. Retroperitoneal/Lymp h Nodes/Vasculature: No abdominal/retroperit fleming adenopathy is identified. Abdominal aorta and its visualized branches are patent. Mesenteric vasculature is patent. GI Tract: Postoperative changes from prior right hemicolectomy and enterocolonic anastomosis. No definite masslike thickening is visualized in the abdomen and pelvis. No dilated bowel loops. No abnormal areas of diffusion restriction. . Previously seen tiny nonenlarged lymph node in the anterior left abdomen is not well visualized on this exam. Pelvis: Bladder: Bladder distends normally. Pelvic Organs: Suboptimal evaluation of the gravid uterus. Osseous Structures: Visualized bony structures reveal normal marrow signal. 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 CONTRAST: None FINDINGS: Abdomen: Liver: Liver is normal in size, morphology and signal characteristics. No focal lesions. Portal vein is patent. Gallbladder and biliary tree: The gallbladder is well distended with bile and a small amount of sludge. No gallbladder wall thickening or pericholecystic fluid. The common bile duct and intrahepatic biliary tree are normal in caliber. Spleen: Spleen is normal in size and signal characteristics. No focal lesions. Pancreas: Pancreas is normal in morphology and signal characteristics. No focal lesions or ductal dilatation. Adrenals: Adrenal glands are unremarkable. Kidneys: Kidneys are normal in size and signal. There is no hydronephrosis. Retroperitoneal/Lymp h Nodes/Vasculature: No abdominal/retroperit fleming adenopathy is identified. Abdominal aorta and its visualized branches are patent. Mesenteric vasculature is patent. GI Tract: Postoperative changes from prior right hemicolectomy and enterocolonic anastomosis. No definite masslike thickening is visualized in the abdomen and pelvis. No dilated bowel loops. No abnormal areas of diffusion restriction. . Previously seen tiny nonenlarged lymph node in the anterior left abdomen is not well visualized on this exam. Pelvis: Bladder: Bladder distends normally. Pelvic Organs: Suboptimal evaluation of the gravid uterus. Osseous Structures: Visualized bony structures reveal normal marrow signal. IMPRESSION IMPRESSION: 1. Stable postoperative changes from right hemicolectomy. No definite evidence of recurrence or distant disease. 2. The previously seen lymph node in the anterior left hemiabdomen is not well visualized on this exam. 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 PROTOCOL: Triple phase liver: Images were obtained through the liver prior to intravenous contrast and then in an arterial and portal venous phase after intravenous contrast. Additional images were obtained through the pelvis. CONTRAST: Iohexol (OMNIPAQUE) 300 MG/ML vial 50 mL; Route of Administration: Oral; Dose: 50 mL. iohexol (OMNIPAQUE) 350 MG/ML injection 1-171 mL; Route of Administration: Intravenous; Dose: 90 mL. FINDINGS: Lung Bases: Unchanged 5 mm subpleural nodule in the lateral left lower lobe (06/07). Otherwise the visualized lung bases are clear. ABDOMEN Liver: Liver is normal in size and CT density. No focal lesions or arterially enhancing foci. Biliary/Gallbladder: The gallbladder is normal without evidence of radiopaque stones. The biliary tree is nondilated. Spleen: Spleen is normal in size and CT density. Pancreas: Pancreas is normal. There is no evidence of pancreatic mass or peripancreatic fluid. Adrenals: Adrenal glands are unremarkable. Kidneys: Kidneys are normal in size. There are no stones or hydronephrosis. Retroperitoneal/Vasc ulature: No enlarged lymph nodes. Normal caliber aorta without significant atherosclerosis. The inferior vena cava, iliac veins, portal veins, and visualized femoral veins are patent. Gastrointestinal/Mes entery: Prior right hemicolectomy with right abdominal enterocolonic anastomosis. No appreciable nodular or masslike thickening along the anastomosis. No evidence of obstruction. No free fluid or air. What was previously described as possible small peritoneal nodules likely represent tiny lymph nodes which have intervally decreased in size. For example, the likely tiny lymph node in the anterior left abdomen measures 5 x 3 mm (), previously 8 x 5 mm. PELVIS Bladder: The bladder is normal. Genital: Unremarkable CT appearance of the uterus and adnexa Other: Postsurgical changes of the ventral abdominal wall. Bony Structures: Visualized bony structures are consistent with the patient's age. No aggressive appearing osseous lesions. IMPRESSION: 1. Prior right hemicolectomy without convincing evidence of local recurrence or intra-abdominal metastasis. 2. The previously questioned peritoneal nodules in the anterior abdomen likely represent tiny lymph nodes and have decreased in size. 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 SOB/chest discomfort especially when bending over; TECHNIQUE: CT images of the chest were obtained following administration of intravenous contrast. CONTRAST: iohexol (OMNIPAQUE) 350 MG/ML injection 1-171 mL; Route of Administration: Intravenous; Dose: 50 mL. FINDINGS: Lungs and Pleura: Essentially unchanged subpleural nodule in the left lower lobe which measures 0.6 x 0.4 cm, previously 0.5 x 0.4 cm (series 3 image 205). No new suspicious nodule. No consolidation. No pleural fluid. Tracheobronchial tree: No abnormality. Mediastinum/Peg: No mediastinal or hilar lymphadenopathy. Normal thyroid and esophagus. Axilla and Supraclavicular Region: No axillary or supraclavicular adenopathy. Cardiovascular: The cardiac chambers and pericardium are within normal limits. The aorta and arch branch vessels, as well as the pulmonary arteries, are unremarkable. Upper Abdomen: Please see same day CT abdomen pelvis report for intra-abdominal findings. Bones and Soft Tissue: No suspicious osseous lesion. IMPRESSION: Stable exam with no definite evidence of intrathoracic metastatic disease. I personally viewed and interpreted these images and I have reviewed and approved this report. Normal [facility] CT Chest W contrast Jason IMPRESSION: Stable exam with no definite evidence of intrathoracic metastatic disease. I personally viewed and interpreted these images and I have reviewed and approved this report. 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 SOB/chest discomfort especially when bending over; TECHNIQUE: CT images of the chest were obtained following administration of intravenous contrast. CONTRAST: iohexol (OMNIPAQUE) 350 MG/ML injection 1-171 mL; Route of Administration: Intravenous; Dose: 50 mL. FINDINGS: Lungs and Pleura: Essentially unchanged subpleural nodule in the left lower lobe which measures 0.6 x 0.4 cm, previously 0.5 x 0.4 cm (series 3 image 205). No new suspicious nodule. No consolidation. No pleural fluid. Tracheobronchial tree: No abnormality. Mediastinum/Peg: No mediastinal or hilar lymphadenopathy. Normal thyroid and esophagus. Axilla and Supraclavicular Region: No axillary or supraclavicular adenopathy. Cardiovascular: The cardiac chambers and pericardium are within normal limits. The aorta and arch branch vessels, as well as the pulmonary arteries, are unremarkable. Upper Abdomen: Please see same day CT abdomen pelvis report for intra-abdominal findings. Bones and Soft Tissue: No suspicious osseous lesion. 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 SOB/chest discomfort especially when bending over; TECHNIQUE: CT images of the chest were obtained following administration of intravenous contrast. CONTRAST: iohexol (OMNIPAQUE) 350 MG/ML injection 1-171 mL; Route of Administration: Intravenous; Dose: 50 mL. FINDINGS: Lungs and Pleura: Essentially unchanged subpleural nodule in the left lower lobe which measures 0.6 x 0.4 cm, previously 0.5 x 0.4 cm (series 3 image 205). No new suspicious nodule. No consolidation. No pleural fluid. Tracheobronchial tree: No abnormality. Mediastinum/Peg: No mediastinal or hilar lymphadenopathy. Normal thyroid and esophagus. Axilla and Supraclavicular Region: No axillary or supraclavicular adenopathy. Cardiovascular: The cardiac chambers and pericardium are within normal limits. The aorta and arch branch vessels, as well as the pulmonary arteries, are unremarkable. Upper Abdomen: Please see same day CT abdomen pelvis report for intra-abdominal findings. Bones and Soft Tissue: No suspicious osseous lesion. IMPRESSION IMPRESSION: Stable exam with no definite evidence of intrathoracic metastatic disease. I personally viewed and interpreted these images and I have reviewed and approved this report. 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 Axial 3 mm and coronal and sagittal 2 mm reformats are provided. CONTRAST: iohexol (OMNIPAQUE) 350 MG/ML injection 1-171 mL; Route of Administration: Intravenous; Dose: 75 mL. FINDINGS: Aerodigestive tract structures are normal in appearance. No pathologic-appearing cervical lymphadenopathy. Major salivary glands are unremarkable. Thyroid gland is unremarkable. Visualized skull base, sinuses, and orbits are unremarkable. IMPRESSION: Examination is within normal limits. Negative for mass or adenopathy in the neck. Normal [facility] CT Neck W contrast Jason 0 IMPRESSION: Examination is within normal limits. Negative for mass or adenopathy in the neck. 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 Axial 3 mm and coronal and sagittal 2 mm reformats are provided. CONTRAST: iohexol (OMNIPAQUE) 350 MG/ML injection 1-171 mL; Route of Administration: Intravenous; Dose: 75 mL. FINDINGS: Aerodigestive tract structures are normal in appearance. No pathologic-appearing cervical lymphadenopathy. Major salivary glands are unremarkable. Thyroid gland is unremarkable. Visualized skull base, sinuses, and orbits are unremarkable. 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 Axial 3 mm and coronal and sagittal 2 mm reformats are provided. CONTRAST: iohexol (OMNIPAQUE) 350 MG/ML injection 1-171 mL; Route of Administration: Intravenous; Dose: 75 mL. FINDINGS: Aerodigestive tract structures are normal in appearance. No pathologic-appearing cervical lymphadenopathy. Major salivary glands are unremarkable. Thyroid gland is unremarkable. Visualized skull base, sinuses, and orbits are unremarkable. IMPRESSION IMPRESSION: Examination is within normal limits. Negative for mass or adenopathy in the neck. [facility] Radiology Study observation (narrative) [facility] CT Neck W contrast IVOrdered By: Miguel Espinal on 10-22-2022 [facility] Work Phone: Cardiac echo study Procedure Ordered By: Guerrero Carvalho on 10-22-2022 Ao peak raj 1.26 m/s [facility] Work Phone: [facility] VTI 19.98 [facility] Work Phone: Ascending aorta 2.62 cm [facility] Work Phone: AV LVOT peak gradient 3 mmHg [facility] Work Phone: AV mean gradient 3 mmHg [facility] Work Phone: AV peak gradient 6 mmHG [facility] Work Phone: AV valve area 2.24 cm2 [facility] Work Phone: AV Velocity Ratio 0.70 [facility] Work Phone: FRANK (continuity Vmax) 1.82 cm2 [facility] Work Phone: FRANK (continuity VTI) 2.24 cm2 [facility] Work Phone: FRANK index (continuity Vmax) 1.06 m/s [facility] Work Phone: FRANK index (continuity VTI) 1.30 cm2/m2 [facility] Work Phone: Avg e' pk raj 0.15 m/s [facility] Work Phone: Avg E/e' ratio 4.89 [facility] Work Phone: Body surface area Derived from formula 1.72 m2 [facility] Work Phone: BP EF 62 % [facility] Work Phone: DI (Vmax) 0.70 [facility] Work Phone: DI (VTI) 0.86 m/2 [facility] Work Phone: E wave decelartion time 217.58 msec [facility] Work Phone: e' lateral pk raj 0.1597 m/s [facility] Work Phone: e' lateral pk raj 0.16 m/s [facility] Work Phone: e' septal pk raj 0.1401 m/s [facility] Work Phone: e' septal pk raj 0.14 m/s [facility] Work Phone: E/A ratio 0.74 [facility] Work Phone: E/e' lateral ratio 4.57 [facility] Work Phone: E/e' septal ratio 5.21 [facility] Work Phone: EF SP 2CH 64 [facility] Work Phone: EF SP 4CH 59 [facility] Work Phone: FS 33 % 28 - 44 % [facility] Work Phone: IVC ostium 1.46 cm [facility] Work Phone: IVS 0.61 cm [facility] Work Phone: LA AREA 2CH 13.72 cm2 [facility] Work Phone: LA area 4CH 9.33 cm2 [facility] Work Phone: LA ESV BP (MOD) 29 mL [facility] Work Phone: LA ESV BP (MOD) index 17 mL/m2 [facility] Work Phone: LA ESV SP 2CH (MOD) [address] [facility] Work Phone: LA ESV SP 4CH (MOD) [address] [facility] Work Phone: Long Strain -21.7 % [facility] Work Phone: LV EDV BP 71 mL [facility] Work Phone: LV EDV SP 2CH 76 mL [facility] Work Phone: LV EDV SP 4CH 61 mL [facility] Work Phone: LV ESV BP 27 mL [facility] Work Phone: LV ESV SP 2CH 27 mL [facility] Work Phone: LV ESV SP 4CH 25 mL [facility] Work Phone: LV mass 68.53 g [facility] Work Phone: LV Mass Index 39.8 g/m2 [facility] Work Phone: LV RWT 0.30 [facility] Work Phone: LV stroke volume BP (ml) 44 mL [facility] Work Phone: LV stroke volume index BP 25.58 mL/m2 [facility] Work Phone: LVIDD 4.10 cm [facility] Work Phone: LVIDS 2.73 cm [facility] Work Phone: LVOT area 2.60 cm2 [facility] Work Phone: LVOT diameter 1.82 cm [facility] Work Phone: LVOT peak raj 0.88 m/s [facility] Work Phone: LVOT peak VTI 17.19 cm [facility] Work Phone: LVOT stroke volume 45 cm3 [facility] Work Phone: LVOT stroke volume index 25.99 ml/m2 [facility] Work Phone: MV pk A raj 0.98 m/s [facility] Work Phone: MV pk E raj 0.73 m/s [facility] Work Phone: MV stenosis pressure 1/2 time 63.10 ms [facility] Work Phone: MV valve area p 1/2 method 3.49 cm2 [facility] Work Phone: [facility] AV VTI RATIO PRE STRESS 0.86 [facility] Work Phone: [facility] ECHO LV BIPLANE SYSTOLIC VOLUME INDEX 15.70 mL/m2 [facility] Work Phone: [facility] ECHO LV BP DIASTOLIC VOLUME INDEX 41.28 mL/m2 [facility] Work Phone: PV peak gradient 4 mmHg [facility] Work Phone: PV PK RAJ 0.97 m/s [facility] Work Phone: PW 0.61 cm [facility] Work Phone: RA vol index 4CH (MOD) 12.79 mL/m2 [facility] Work Phone: Right atrium volume 4 chamber method of disks 22 mL [facility] Work Phone: RV Area diastolic 21.85 cm2 [facility] Work Phone: RV Area systolic 11.51 cm2 [facility] Work Phone: RV basal diam 3.02 cm [facility] Work Phone: RV Fractional area change 47.3 % [facility] Work Phone: RV long diam 7.35 cm [facility] [facility] RV Long Strain -28.0 % [facility] Work Phone: RV mid diam 2.68 cm [facility] Work Phone: RV S' 12.55 cm/s [facility] Work Phone: RVOT peak gradient 1 mmHg [facility] Work Phone: RVOT peak raj 0.59 m/s [facility] Work Phone: Sinus 2.70 cm [facility] Work Phone: STJ 2.41 cm [facility] Work Phone: Stroke Volume 45 cm/mL [facility] Work Phone: [facility]: TAPSE 2.03 cm [facility] Work Phone: [facility] Work Phone: Cardiac echo study Procedure on 10-22-2022 Left Ventricle: Chamber size is normal. Normal wall thickness. Normal global systolic function. Regional wall motion is normal. Ejection fraction is normal (60 - 65%). The magnitude of the left ventricular longitudinal strain is normal. Diastolic function is normal. Right Ventricle: Chamber size is normal. Normal wall thickness. Segmental wall motion is normal. Systolic function is normal. Left Atrium: Chamber size is normal. Mitral Valve: Normal appearing leaflets. Leaflet mobility is normal. Trace regurgitation. No valve stenosis. Tricuspid Valve: Normal leaflets. Leaflet mobility is normal. No regurgitation. No stenosis. Pulmonary artery systolic pressure (PASP) is unable to be estimated. Aortic Valve: Trileaflet valve. Leaflet mobility is normal. No regurgitation. No stenosis. Left Ventricle Chamber size is normal. Normal wall thickness. Normal global systolic function. Regional wall motion is normal. The ejection fraction is 62%. Ejection fraction is normal (60 - 65%). The magnitude of the left ventricular longitudinal strain is normal. Diastolic function is normal. Global longitudinal strain is -21.7%. Right Ventricle Chamber size is normal. Normal wall thickness. Segmental wall motion is normal. Systolic function is normal. Left Atrium Chamber size is normal. Right Atrium Chamber size is normal. IVC/SVC The inferior vena cava is normal in size. The inferior vena cava structure has a diameter <21 mm and decreases >50% during inspiration. Mitral Valve Normal appearing leaflets. Leaflet mobility is normal. Trace regurgitation. No valve stenosis. Tricuspid Valve Normal leaflets. Leaflet mobility is normal. No regurgitation. No stenosis. Pulmonary artery systolic pressure (PASP) is unable to be estimated. Aortic Valve Trileaflet valve. Leaflet mobility is normal. No regurgitation. No stenosis. Mean gradient: 3 mmHg. The valve Vmax is 1.26 m/s. Pulmonic Valve Normal structure. No regurgitation. No stenosis. Pericardium Appears normal. No pericardial effusion. Septum The atrial septum is normal. No evidence of patent foramen ovale determined by color flow. Pulmonary Artery The pulmonary artery is normal. Aorta No dilation to extent seen. SOV: 2.70 cm. STJ: 2.41 cm. Ascendin.62 cm. Study Details A complete echocardiography study (including left ventricular strain and right ventricular strain) was performed. Imaging system used: [employer]is[employer]. Indications Indications for study: chest pain, other, tachycardia and shortness of breath - Neuroendocrine tumor, LAMN. Wall Scoring Score Index: 1.00 The left ventricular wall motion is normal. [facility] Radiology Study observation (narrative) [facility] ECHOCARDIOGRAMon 10-22-2022 Echocardiography ? Left Ventricle: Chamber size is normal. Normal wall thickness. Normal global systolic function. Regional wall motion is normal. Ejection fraction is normal (60 - 65%). The magnitude of the left ventricular longitudinal strain is normal. Diastolic function is normal. ? Right Ventricle: Chamber size is normal. Normal wall thickness. Segmental wall motion is normal. Systolic function is normal. ? Left Atrium: Chamber size is normal. ? Mitral Valve: Normal appearing leaflets. Leaflet mobility is normal. Trace regurgitation. No valve stenosis. ? Tricuspid Valve: Normal leaflets. Leaflet mobility is normal. No regurgitation. No stenosis. Pulmonary artery systolic pressure (PASP) is unable to be estimated. ? Aortic Valve: Trileaflet valve. Leaflet mobility is normal. No regurgitation. No stenosis. Table formatting from the original result was not included. Images from the original result were not included. 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 Interpretation Summary ? Left Ventricle: Chamber size is normal. Normal wall thickness. Normal global systolic function. Regional wall motion is normal. Ejection fraction is normal (60 - 65%). The magnitude of the left ventricular longitudinal strain is normal. Diastolic function is normal. ? Right Ventricle: Chamber size is normal. Normal wall thickness. Segmental wall motion is normal. Systolic function is normal. ? Left Atrium: Chamber size is normal. ? Mitral Valve: Normal appearing leaflets. Leaflet mobility is normal. Trace regurgitation. No valve stenosis. ? Tricuspid Valve: Normal leaflets. Leaflet mobility is normal. No regurgitation. No stenosis. Pulmonary artery systolic pressure (PASP) is unable to be estimated. ? Aortic Valve: Trileaflet valve. Leaflet mobility is normal. No regurgitation. No stenosis. Findings Left Ventricle Chamber size is normal. Normal wall thickness. Normal global systolic function. Regional wall motion is normal. The ejection fraction is 62%. Ejection fraction is normal (60 - 65%). The magnitude of the left ventricular longitudinal strain is normal. Diastolic function is normal. Global longitudinal strain is -21.7%. Right Ventricle Chamber size is normal. Normal wall thickness. Segmental wall motion is normal. Systolic function is normal. Left Atrium Chamber size is normal. Right Atrium Chamber size is normal. Septum The atrial septum is normal. No evidence of patent foramen ovale determined by color flow. Mitral Valve Normal appearing leaflets. Leaflet mobility is normal. Trace regurgitation. No valve stenosis. Aortic Valve Trileaflet valve. Leaflet mobility is normal. No regurgitation. No stenosis. Mean gradient: 3 mmHg. The valve Vmax is 1.26 m/s. Tricuspid Valve Normal leaflets. Leaflet mobility is normal. No regurgitation. No stenosis. Pulmonary artery systolic pressure (PASP) is unable to be estimated. Pulmonic Valve Normal structure. No regurgitation. No stenosis. Aorta No dilation to extent seen. SOV: 2.70 cm. STJ: 2.41 cm. Ascendin.62 cm. Pericardium Appears normal. No pericardial effusion. IVC/SVC The inferior vena cava is normal in size. The inferior vena cava structure has a diameter <21 mm and decreases >50% during inspiration. Pulmonary Artery The pulmonary artery is normal. Reading Providers Reading Role Read Date Guerrero Carvalho MD Test Outer Diameter Technician, Echo [place] 10/22/2022 Wall Scoring Score Index: 1.00 The left ventricular wall motion is normal. Left Heart Measurements LV - Systole LVIDD 4.1 cm IVS 0.61 cm LVIDS 2.73 cm PW 0.61 cm LV RWT 0.3 LV Mass Index 39.8 g/m2 LV EDV BP 71 mL LV ESV BP 27 mL BP EF 62 % LV stroke volume BP (ml) 44 mL LV stroke volume index BP 25.58 mL/m2 Long Strain -21.7 % LV - Diastole MV pk E raj 0.73 m/s MV pk A raj 0.98 m/s E/A ratio 0.74 e' septal pk raj 0.14 m/s e' lateral pk raj 0.16 m/s Avg e' pk raj 0.15 m/s E/e' septal ratio 5.21 E/e' lateral ratio 4.57 Avg E/e' ratio 4.89 LV - HCM AV LVOT peak gradient 3 mmHg Left Atrium LA ESV SP 4CH (MOD) 19 mL LA ESV SP 2CH (MOD) 37 mL LA ESV BP (MOD) index 17 mL/m2 Right Heart Measurements RV - 2D RV basal diam 3.02 cm RV mid diam 2.68 cm RV long diam 7.35 cm RV Long Strain -28 % RV Area diastolic 21.85 cm2 RV Area systolic 11.51 cm2 RV Fractional area change 47.3 % RV - Doppler TAPSE 2.03 cm RV S' 12.55 cm/s Right Atrium RA vol (more content not included)... Normal [facility] B-TYPE NATRIURETIC PEPTIDE ( BRAIN)on 10-07-2022 Interpretation and review of laboratory results Normal [facility] Natriuretic peptide B (Bld) [Mass/Vol] 4 pg/mL 0 - 100 pg/mL [facility] Natriuretic peptide B (Bld) [Mass/Vol] 4 pg/mL Normal 0-100 [facility] Comment on above: Performed By: #### C Danielle, RODRIGO, CHM7, MGO #### [facility] (DEFAULT) [address] [place] [address] CBC AND ELECTRONIC DIFFon Basophils (Bld) [#/Vol] 0.04 10*3/uL Normal 0.00-0.15 [facility] Comment on above: Performed By: #### Dayday Santos, SHANEKAB, CHM7, MGO #### [facility] (DEFAULT) [address] [place] [address] 38063 Basophils/100 WBC (Bld) 0.6 % Normal [facility] Comment on above: Performed By: #### Dayday Santos, IPB, CHM7, MGO #### [facility] (DEFAULT) [address] [place] [address] 69565 DIFF STATUS Electronic Differential Normal [facility] Comment on above: Performed By: #### Dayday Santos, IPB, CHM7, MGO #### [facility] (DEFAULT) [address] [place] [address] 97024 Eosinophils (Bld) [#/Vol] 0.18 10*3/uL Normal 0.00-0.42 [facility] Comment on above: Performed By: #### Dayday Santos, IPB, CHM7, MGO #### [facility] (DEFAULT) [address] [place] [address] 80574 Eosinophils/100 WBC (Bld) 2.5 % Normal [facility] Comment on above: Performed By: #### Dayday Santos, IPB, CHM7, MGO #### [facility] (DEFAULT) [address] [place] [address] 81696 Hematocrit (Bld) [Volume fraction] 39.3 % Normal 34.9-44.3 [facility] Comment on above: Performed By: #### Dayday Santos, IPB, CHM7, MGO #### [facility] (DEFAULT) [address] [place] [address] 30132 Hemoglobin (Bld) [Mass/Vol] 12.5 g/dL Normal 11.4-15.2 [facility] Comment on above: Performed By: #### Dayday A, IPB, CHM7, MGO #### [facility] (DEFAULT) [address] [place] [address] 02990 Immature Grans % 0.4 % Normal [facility] Comment on above: Performed By: #### Dayday Santos, IPB, CHM7, MGO #### [facility] (DEFAULT) [address] [place] [address] 42512 Immature Grans Absolute < Normal <=0.08 [facility] Comment on above: Performed By: #### Dayday Santos, IPB, CHM7, MGO #### [facility] (DEFAULT) [address] [place] [address] 98806 Lymphocytes (Bld) [#/Vol] 2.19 10*3/uL Normal 1.16-3.51 [facility] Comment on above: Performed By: #### Dayday Santos, IPBrett, CHM7, MGO #### [facility] (DEFAULT) [address] [place] [address] 96974 Lymphocytes/100 WBC (Bld) 30.6 % Normal [facility] Comment on above: Performed By: #### RODRIGO Rangel, CHM7, MGO #### [facility] (DEFAULT) [address] [place] [address] 21882 MCV (RBC) [Entitic vol] 84.2 fL Normal 79.6-97.7 [facility] Comment on above: Performed By: #### Dayday Santos IPB, CHM7, MGO #### [facility] (DEFAULT) [address] [place] [address] 46175 Mean Cell Hgb 26.8 pg Normal 25.9-33.9 [facility] Comment on above: Performed By: #### Dayday Santos IPB, CHM7, MGO #### [facility] (DEFAULT) [address] [place] [address] 78752 Mean Cell Hgb Conc 31.8 g/dL Normal 31.4-35.9 [facility] Comment on above: Performed By: #### Dayday Santos IPB, CHM7, MGO #### [facility] (DEFAULT) [address] [place] [address] 21581 Monocytes (Bld) [#/Vol] 0.50 10*3/uL Normal 0.22-0.87 [facility] Comment on above: Performed By: #### C A, IPB, CHM7, MGO #### [facility] (DEFAULT) [address] [place] [address] 42742 Monocytes/100 WBC (Bld) 7.0 % Normal [facility] Comment on above: Performed By: #### C A, IPB, CHM7, MGO #### [facility] (DEFAULT) [address] [place] [address] 91875 Nucleated RBC 0.0 /100 WBC Normal <=0.2 [facility] Comment on above: Performed By: #### C A, IPB, CHM7, MGO #### [facility] (DEFAULT) [address] [place] [address] 62747 Platelet mean volume (Bld) [Entitic vol] 9.5 fL Normal 8.5-12.2 [facility] Comment on above: Performed By: #### C A, IPB, CHM7, MGO #### [facility] (DEFAULT) [address] [place] [address] 89323 Platelets (Bld) [#/Vol] 355 10*3/uL Normal 150-393 [facility] Comment on above: Performed By: #### C A, IPB, CHM7, MGO #### [facility] (DEFAULT) [address] [place] [address] 01344 RBC (Bld) [#/Vol] 4.67 10*6/uL Normal 3.91-5.04 [facility] Comment on above: Performed By: #### C A, IPB, CHM7, MGO #### [facility] (DEFAULT) [address] [place] [address] 94407 RBC Distribution 13.2 % Normal 10.8-14.9 [facility] Comment on above: Performed By: #### C Danielle, IPB, CHM7, MGO #### [facility] (DEFAULT) [address] [place] [address] 18789 Segs + Bands Auto 58.9 % Normal [facility] Comment on above: Performed By: #### C A, IPB, CHM7, MGO #### [facility] (DEFAULT) [address] [place] [address] 17750 Segs + Bands,Absolute Auto 4.22 K/uL Normal 1.64-7.28 [facility] Comment on above: Performed By: #### Dayday A, IPB, CHM7, MGO #### [facility] (DEFAULT) [address] [place] [address] 05504 WBC (Bld) [#/Vol] 7.16 10*3/uL Normal 3.99-11.19 [facility] Comment on above: Performed By: #### Dayday A, IPB, CHM7, MGO #### [facility] (DEFAULT) [address] [place] [address] 49052 CHROMOGRANIN Aon 10-07-2022 Chromogranin A <20 Normal <93 [facility] Comment on above: Result Comment: ADDITIONAL INFORMATION This test was developed and its performance characteristics determined by [facility] in a manner consistent with CLIA requirements. This test has not been cleared or approved by the U.S. Food and Drug Administration. In some immunoassays, the presence of unusually high concentrations of analyte may result in a high-dose hook effect. This may result in a lower or even normal measured analyte concentration. If the reported result is inconsistent with the clinical presentation, the laboratory should be alerted for troubleshooting. For diagnostic purposes, these immunoassay results should always be assessed in conjunction with the patients medical history, clinical examination and other findings. The testing method is a homogeneous time-resolved immunofluorescent assay manufactured by [employer] and performed on the [employer] Kryptor Compact Plus. Values obtained with different assay methods or kits may be different and cannot be used interchangeably. Test results cannot be interpreted as absolute evidence for the presence or absence of malignant disease. Test Performed by: [facility] [address] [place] [address] Tester Wafer Substrate: Ed Russo M.D. Ph.D.; CLIA# [id number] Performed By: #### Y CHGRA #### [facility] (DEFAULT) [address] [address] COMPREHENSIVE METABOLIC PANE Shamir 10-07-2022 Albumin [Mass/Vol] 4.7 g/dL Normal 3.5-5.0 [facility] Comment on above: Performed By: #### Y CHGRA #### [facility] (DEFAULT) [address] [address] ALP [Catalytic activity/Vol] 53 U/L Normal 32-126 [facility] Comment on above: Performed By: #### Y CHGRA #### [facility] (DEFAULT) [address] [address] ALT [Catalytic activity/Vol] 25 U/L Normal 9-48 [facility] Comment on above: Performed By: #### Y CHGRA #### [facility] (DEFAULT) [address] [place] [address] 39611 Anion gap [Moles/Vol] 12 mmol/L Normal 7-17 [facility] Comment on above: Performed By: #### Y CHGRA #### [facility] (DEFAULT) [address] [address] AST [Catalytic activity/Vol] 16 U/L Normal 10-39 [facility] Comment on above: Performed By: #### Y CHGRA #### [facility] (DEFAULT) [address] [place] [address] 26530 Bilirubin [Mass/Vol] 0.4 mg/dL Normal <1.5 [facility] Comment on above: Performed By: #### Y CHGRA #### [facility] (DEFAULT) [address] [place] [address] 95647 Calcium [Mass/Vol] 9.5 mg/dL Normal 8.6-10.5 [facility] Comment on above: Performed By: #### Y CHGRA #### [facility] (DEFAULT) [address] [place] [address] 79757 Chloride [Moles/Vol] 101 mmol/L Normal 98-108 [facility] Comment on above: Performed By: #### Y CHGRA #### [facility] (DEFAULT) [address] [place] [address] 82623 CO2 [Moles/Vol] 28 mmol/L Normal 21-31 [facility] Comment on above: Performed By: #### Y CHGRA #### [facility] (DEFAULT) [address] [place] [address] 68290 Creatinine [Mass/Vol] 0.66 mg/dL Normal 0.50-1.20 [facility] Comment on above: Performed By: #### Y CHGRA #### [facility] (DEFAULT) [address] [place] [address] 68248 eGFR, CKD-EPI, Female > Normal >=60 [facility] Comment on above: Result Comment: Repo rted eGFR is based on the CKD-EPI 2020 equation using creatinine, age, and sex. Performed By: #### Y CHGRA #### [facility] (DEFAULT) [address] [place] [address] 49330 Glucose [Mass/Vol] 103 mg/dL High 70-99 [facility] Comment on above: Performed By: #### Y CHGRA #### [facility] (DEFAULT) [address] [place] [address] 71057 Osmolality [Osmolality] 286 mosm/kg Normal 278-305 [facility] Comment on above: Performed By: #### Y CHGRA #### [facility] (DEFAULT) [address] [place] [address] 32492 Potassium [Moles/Vol] 4.0 mmol/L Normal 3.5-5.0 [facility] Comment on above: Performed By: #### Y CHGRA #### [facility] (DEFAULT) [address] [place] [address] Protein [Mass/Vol] 7.6 g/dL Normal 6.4-8.3 [facility] Comment on above: Performed By: #### Y CHGRA #### [facility] (DEFAULT) [address] [place] [address] Sodium [Moles/Vol] 137 mmol/L Normal 135-145 [facility] Comment on above: Performed By: #### Y CHGRA #### [facility] (DEFAULT) [address] [place] [address] 99435 Urea nitrogen [Mass/Vol] 9 mg/dL Normal 7-25 [facility] Comment on above: Performed By: #### Y CHGRA #### [facility] (DEFAULT) [address] [place] [address] 82630 Urea nitrogen/Creatinine [Mass ratio] 14 mg/mg Normal [facility] Comment on above: Performed By: #### Y CHGRA #### [facility] (DEFAULT) [address] [place] [address] 55067 HIGH SENSITIVITY TROPONIN I - SINGLE ORDERon 10-07-2022 Interpretation and review of laboratory results Normal [facility] Troponin I.cardiac High sensitivity method [Mass/Vol] ng/L NINF - 34 ng/L [facility] hs-Troponin I <3 Normal <34 [facility] Comment on above: Order Comment: Acute Coronary Syndrome (ACS): Initial Evaluation and Management:[email or web address] Performed By: #### C Danielle, IPB, CHM7, MGO #### [facility] (DEFAULT) [address] [address] LACTATE DEHYDROGENASEon 09-17 LD Total 114 U/L Normal 100-190 [facility] Comment on above: Performed By: #### Y CHGRA #### [facility] (DEFAULT) [address] [address] MONOon 10-02-2022 Monocytes (Bld) [#/Vol] Negative Normal NEGATIVE [facility] Comment on above: Performed By: #### L IVER, LDH, BMP #### [facility] [address] [place] [address] Dr. Esthela Stevens CBC AUTO DIFFon 09-30-2022 BASO # 0.1 103/ul Normal 0.0-0.1 [facility] Comment on above: Performed By: #### L IVER, LDH, BMP #### [facility] [address] [place] [address] Dr. Esthela Stevens Basophils/100 WBC (Bld) 0.8 % Normal 0.2-2.0 [facility] Comment on above: Performed By: #### L IVER, LDH, BMP #### [facility] [address] [place] [address] Dr. Esthela Stevens EO # 0.1 103/ul Normal 0.0-0.7 [facility] Comment on above: Performed By: #### L IVER, LDH, BMP #### [facility] [address] [place] [address] Dr. Esthela Stevens Eosinophils/100 WBC (Bld) 1.7 % Normal 0.9-7.0 [facility] Comment on above: Performed By: #### L IVER, LDH, BMP #### [facility] [address] [place] [address] Dr. Esthela Stevens Erythrocyte distribution width (RBC) [Ratio] 13.1 % Normal 11.0-15.0 [facility] Comment on above: Performed By: #### L IVER, LDH, BMP #### [facility] [address] [place] [address] Dr. Esthela Stevens Hematocrit (Bld) [Volume fraction] 38.4 % Normal 36.0-48.0 [facility] Comment on above: Performed By: #### L IVER, LDH, BMP #### [facility] [address] [place] [address] Dr. Esthela Stevens Hemoglobin (Bld) [Mass/Vol] 12.4 g/dL Normal 12.0-16.0 [facility] Comment on above: Performed By: #### L IVER, LDH, BMP #### [facility] [address] [place] [address] Dr. Esthela Stevens IG # 0.02 10e3/ul Normal 0.00-0.03 [facility] Comment on above: Performed By: #### L IVER, LDH, BMP #### [facility] [address] [place] [address] Dr. Esthela Stevens IG % 0.3 % Normal 0.0-0.5 [facility] Comment on above: Performed By: #### L IVER, LDH, BMP #### [facility] [address] [place] [address] Dr. Esthela Stevens LYMPH # 2.2 103/ul Normal 1.2-3.8 [facility] Comment on above: Performed By: #### L IVER, LDH, BMP #### [facility] [address] [place] [address] Dr. Esthela Stevens Lymphocytes/100 WBC (Bld) 32.8 % Normal 20.5-60.0 [facility] Comment on above: Performed By: #### L IVER, LDH, BMP #### [facility] [address] [place] [address] Dr. Esthela Stevens MANUAL DIFF REQ NO Normal [facility] Comment on above: Performed By: #### L IVER, LDH, BMP #### [facility] [address] [place] [address] Dr. Esthela Stevens MCH (RBC) [Entitic mass] 27.1 pg Normal 26.7-34.0 [facility] Comment on above: Performed By: #### L IVER, LDH, BMP #### [facility] [address] [place] [address] Dr. Esthela Stevens MCHC (RBC) [Mass/Vol] 32.3 g/dL Normal 29.9-35.2 [facility] Comment on above: Performed By: #### L IVER, LDH, BMP #### [facility] [address] [place] [address] Dr. Esthela Stevens MCV (RBC) [Entitic vol] 83.8 fL Normal 81.0-99.0 [facility] Comment on above: Performed By: #### L IVER, LDH, BMP #### [facility] [address] [place] [address] Dr. Esthela Stevens MONO # 0.5 103/ul Normal 0.3-0.8 [facility] Comment on above: Performed By: #### L IVER, LDH, BMP #### [facility] [address] [place] [address] Dr. Esthela Stevens Monocytes/100 WBC (Bld) 8.0 % Normal 1.7-12.0 [facility] Comment on above: Performed By: #### L IVER, LDH, BMP #### [facility] [address] [place] [address] Dr. Esthela Stevens NEUT # 3.7 103/ul Normal 1.4-6.5 [facility] Comment on above: Performed By: #### L IVER, LDH, BMP #### [facility] [address] [place] [address] Dr. Esthela Stevens Neutrophils/100 WBC (Bld) 56.4 % Normal 43.0-75.0 [facility] Comment on above: Performed By: #### L IVER, LDH, BMP #### [facility] [address] [place] [address] Dr. Esthela Stevens Platelet mean volume (Bld) [Entitic vol] 9.3 fL Critically low 9.5-13.5 [facility] Comment on above: Performed By: #### L IVER, LDH, BMP #### [facility] [address] [place], [place] [id number] Dr. Esthela Stevens PLT 334 103/ul Normal 150-450 [facility] Comment on above: Performed By: #### L IVER, LDH, BMP #### [facility] [address] [place] [address] Dr. Esthela Stevens RBC 4.58 106/ul Normal 4.20-5.40 [facility] Comment on above: Performed By: #### L IVER, LDH, BMP #### [facility] [address] [place] [address] Dr. Esthela Stevens WBC 6.6 103/ul Normal 4.0-11.0 [facility] Comment on above: Performed By: #### L IVER, LDH, BMP #### [facility] [address] [place] [address] Dr. Esthela Stevens LDHon 09-30-2022 LDH 122 U/L Normal 81-234 [facility] Comment on above: Performed By: #### L IVER, LDH, BMP #### [facility] [address] [place] [address] Dr. Esthela Stevens LIVER PROFILEon 09-30-2022 Albumin [Mass/Vol] 4.1 g/dL Normal 3.4-5.0 [facility] Comment on above: Performed By: #### L IVER, LDH, BMP #### [facility] [address] [place] [address] Dr. Esthela Stevens Albumin/Globulin [Mass ratio] 1.2 {ratio} Normal [facility] Comment on above: Performed By: #### L IVER, LDH, BMP #### [facility] [address] [place] [address] Dr. Esthela Stevens ALP [Catalytic activity/Vol] 75 U/L Normal 46-116 [facility] Comment on above: Performed By: #### L IVER, LDH, BMP #### [facility] [address] [place] [address] Dr. Esthela Stevens ALT [Catalytic activity/Vol] 41 U/L Normal 14-59 [facility] Comment on above: Performed By: #### L IVER, LDH, BMP #### [facility] [address] [place] [address] Dr. Esthela Stevens AST [Catalytic activity/Vol] 30 U/L Normal 15-37 [facility] Comment on above: Performed By: #### L IVER, LDH, BMP #### [facility] [address] [place] [address] Dr. Esthela Stevens BILI, CONJUGATED 0.1 mg/dL Normal 0.0-0.2 [facility] Comment on above: Performed By: #### L IVER, LDH, BMP #### [facility] [address] [place] [address] Dr. Esthela Stevens Bilirubin [Mass/Vol] 0.5 mg/dL Normal 0.2-1.0 [facility] Comment on above: Performed By: #### L IVER, LDH, BMP #### [facility] [address] [place] [address] Dr. Esthela Stevens Globulin (S) [Mass/Vol] 3.3 g/dL Normal [facility] Comment on above: Performed By: #### L IVER, LDH, BMP #### [facility] [address] [place] [address] Dr. Esthela Stevens Protein [Mass/Vol] 7.4 g/dL Normal 6.4-8.2 [facility] Comment on above: Performed By: #### L IVER, LDH, BMP #### [facility] [address] [place] [address] Dr. Esthela Stevens PROF CHEM 8 (BAS METB)on Anion gap [Moles/Vol] 9.2 mmol/L Normal [facility] Comment on above: Performed By: #### L IVER, LDH, BMP #### [facility] [address] [place] [address] Dr. Esthela Stevens Calcium [Mass/Vol] 9.0 mg/dL Normal 8.5-10.1 [facility] Comment on above: Performed By: #### L IVER, LDH, BMP #### [facility] [address] [place] [address] Dr. Esthela Stevens Chloride [Moles/Vol] 102 mmol/L Normal 98-107 [facility] Comment on above: Performed By: #### L IVER, LDH, BMP #### [facility] [address] [address] [address] Esthela Stevens CO2 [Moles/Vol] 27.8 mmol/L Normal 21.0-32.0 [facility] Comment on above: Performed By: #### L IVER, LDH, BMP #### [facility] [address] [address] [address] Esthela Stevens Creatinine [Mass/Vol] 0.63 mg/dL Normal 0.55-1.02 [facility] Comment on above: Performed By: #### L IVER, LDH, BMP #### [facility] [address] [place] [address] Dr. Esthela Stevens EGFR-AF [place]THER[place]ISH >60 Normal >=60 [facility] Comment on above: Performed By: #### L IVER, LDH, BMP #### [facility] [address] [place] [address] Dr. Esthela Stevens EGFR-NON AF [place] >60 Normal >=60 [facility] Comment on above: Performed By: #### L IVER, LDH, BMP #### [facility] [address] [place] [address] Dr. Esthela Stevens Glucose [Mass/Vol] 106 mg/dL Normal 74-106 [facility] Comment on above: Performed By: #### L IVER, LDH, BMP #### [facility] [address] [address] [address] Esthela Stevens Potassium [Moles/Vol] 4.0 mmol/L Normal 3.5-5.1 [facility] Comment on above: Performed By: #### L IVER, LDH, BMP #### [facility] [address] [place] [address] Dr. Esthela Stevens Sodium [Moles/Vol] 135 mmol/L Critically low 136-145 [facility] Comment on above: Performed By: #### L IVER, LDH, BMP #### [facility] [address] [place], [place] [address] Dr. Esthela Stevens Urea nitrogen [Mass/Vol] 9.0 mg/dL Normal 7.0-18.0 [facility] Comment on above: Performed By: #### L IVER, LDH, BMP #### [facility] [address] [place], [place] [address] Dr. Esthela Stevens Urea nitrogen/Creatinine [Mass ratio] 14.3 mg/mg Normal [facility] Comment on above: Performed By: #### L IVER, LDH, BMP #### [facility] [address] [place], [place] [address] Dr. Esthela Stevens MG MAMM DIAGNOSTIC 3D EFREN CA Don 09-23-2022 MG MAMM DIAGNOSTIC 3D EFREN CAD Patient: ZAINAB SWIFT Exam Date: 09/23/2022 : 1995 Gender:F Ordering : ERIN SAMS [facility] Admission #: [id number] Family : Order #: [id number] CLICK HERE TO VIEW EXAM RADIOLOGY REPORT PROCEDURE: MAMMOGRAM DIAGNOSTIC 3D BILATERAL CAD, 09/23/2022, 09:21 ULTRASOUND BREAST BILATERAL LIMITED, 09/23/2022, 08:25 COMPARISON: None. INDICATIONS: Breast lump Calculator Name NCI Breast Cancer Risk Assessment Tool 5 Year Breast Cancer Risk Not Applicable. Lifetime Breast Cancer Risk Not Applicable. Personal Breast Cancer No Personal Ovarian Cancer No Treatments None Family Cancers Cousin-maternal with breast cancer at age 38; Aunt-maternal with breast cancer at age 50; Aunt-maternal with breast cancer at age 55; Aunt-maternal with thyroid cancer at age 40; Cousin-maternal with neuroendocrine cancer at age 34; Cousin-maternal with cervical cancer at age 40. LOCATION: [facility] BREAST COMPOSITION: Extremely dense, which lowers the sensitivity of mammography. FINDINGS: DIAGNOSTIC CATEGORY 2--BENIGN FINDING: RIGHT BREAST: No significant suspicious finding during ultrasound and mammographic evaluation. LEFT BREAST: No significant suspicious finding on mammography. Incidental, benign-appearing simple cyst 5 x 4 x 3 millimeters at the 1 o'clock position, 5.0 cm from the nipple seen on today's ultrasound. RECOMMENDATIONS: CLINICAL EVALUATION. PLEASE NOTE: A NORMAL MAMMOGRAM DOES NOT EXCLUDE THE POSSIBILITY OF BREAST CANCER. A CLINICALLY SUSPICIOUS PALPABLE LUMP SHOULD BE BIOPSIED. Dictated by: Carolyn Walsh M.D. on 09/23/2022 at 09:58 Approved by: Carolyn Walsh M.D. on 09/23/2022 at 11:31 Normal [facility] US BREAST EFREN LIMITEDon 03-0 US BREAST EFREN LIMITED Patient: ZAINAB SWIFT Exam Date: 09/23/2022 : 1995 Gender:F Ordering : ERIN SAMS [facility] Admission #: [id number] Family : Order #: [id number] CLICK HERE TO VIEW EXAM RADIOLOGY REPORT PROCEDURE: MAMMOGRAM DIAGNOSTIC 3D BILATERAL CAD, 09/23/2022, 09:21 ULTRASOUND BREAST BILATERAL LIMITED, 09/23/2022, 08:25 COMPARISON: None. INDICATIONS: Breast lump Calculator Name NCI Breast Cancer Risk Assessment Tool 5 Year Breast Cancer Risk Not Applicable. Lifetime Breast Cancer Risk Not Applicable. Personal Breast Cancer No Personal Ovarian Cancer No Treatments None Family Cancers Cousin-maternal with breast cancer at age 38; Aunt-maternal with breast cancer at age 50; Aunt-maternal with breast cancer at age 55; Aunt-maternal with thyroid cancer at age 40; Cousin-maternal with neuroendocrine cancer at age 34; Cousin-maternal with cervical cancer at age 40. LOCATION: [facility] BREAST COMPOSITION: Extremely dense, which lowers the sensitivity of mammography. FINDINGS: DIAGNOSTIC CATEGORY 2--BENIGN FINDING: RIGHT BREAST: No significant suspicious finding during ultrasound and mammographic evaluation. LEFT BREAST: No significant suspicious finding on mammography. Incidental, benign-appearing simple cyst 5 x 4 x 3 millimeters at the 1 o'clock position, 5.0 cm from the nipple seen on today's ultrasound. RECOMMENDATIONS: CLINICAL EVALUATION. PLEASE NOTE: A NORMAL MAMMOGRAM DOES NOT EXCLUDE THE POSSIBILITY OF BREAST CANCER. A CLINICALLY SUSPICIOUS PALPABLE LUMP SHOULD BE BIOPSIED. Dictated by: Carolyn Walsh M.D. on 09/23/2022 at 09:58 Approved by: Carolyn Walsh M.D. on 09/23/2022 at 11:31 Normal [facility] Covid-19 PCR (CVDTBH)on 08-20 SARS-CoV-2 (COVID-19) RNA JORGE LUIS+probe Ql (Unsp spec) Not detected Normal NOT DETECTED [facility] Comment on above: Result Comment: When diagnostic testing is negative, the possibility of a false negative should be considered in the context of a patient's recent exposures and the presence of clinical signs and symptoms consistent with SARS-CoV-2. This test is not yet approved or cleared by the [place] FDA. When there are no FDA-approved or cleared tests available, and other criteria are met, FDA can make tests available under an emergency access mechanism called an Emergency Use Authorization (EUA). The EUA for this test is supported by the Wharf Worker of Health and Human Service's declaration that circumstances exist to justify the emergency use of in vitro diagnostics for the detection and/or diagnosis of the virus that causes COVID-19. This EUA will remain in effect for the duration of the COVID-19 declaration justifying emergency of IVDs, unless it is terminated or revoked by the FDA (after which the test may no longer be used). Performed By: #### P REG #### [facility] [address] [place] [address] Dr. Esthela Stevens INFLUENZA A AND B [facility] 09-15 [facility] SEE BELOW Normal [facility] Comment on above: Result Comment: Nega tive for Flu A protein angiten. Infection due to Flu A cannot be ruled out. Flu A angiten in the sample may be below the detection limit of the test. Performed By: #### L IVER, LDH, BMP #### [facility] [address] [place] [address] Dr. [facility] Normal [facility] Comment on above: Result Comment: Nega tive for Flu B protein antigen. Infection due to Flu B cannot be ruled out. Flu B antigen in the sample may be below the detection limit of the test. Performed By: #### L IVER, LDH, BMP #### [facility] [address] [place] [address] Dr. Esthela Stevens INFLUENZA A AG Negative Normal NEGATIVE SEE COMMENT [facility] Comment on above: Performed By: #### L IVER, LDH, BMP #### [facility] [address] [place] [address] Dr. Esthela Stevens INFLUENZA B AG Negative Normal NEGATIVE SEE COMMENT [facility] Comment on above: Performed By: #### L IVER, LDH, BMP #### [facility] [address] [address] [address] Esthela Stevens HUNTER by IFAon 09-04-2022 Antinuclear Antibodies, IFA Positive Abnormal [facility] Comment on above: Result Comment: Nega tive <1:80 Borderline 1:80 Positive >1:80 Performed By: #### P REG #### [facility] [address] [address] [address] Esthela Stevens Centriole Pattern Normal [facility] Comment on above: Performed By: #### P REG #### [facility] [address] [address] [address] Esthela Stevens Centromere Pattern Normal [facility] Comment on above: Performed By: #### P REG #### [facility] [address] [address] [address] Esthela Stevens Homogeneous Pattern 1:160 Critically high [facility] Comment on above: Result Comment: ICAP nomenclature: AC-1 Performed By: #### P REG #### [facility] [address] [address] [address] Esthela Stevens Midbody Pattern Normal [facility] Comment on above: Performed By: #### P REG #### [facility] [address] [address] [address] Esthela Stevens Note: Comment Normal [facility] Comment on above: Result Comment: For more information about Hep-2 cell patterns use ANApatterns.org, the official website for the International Consensus on Antinuclear Antibody (HUNTER) Patterns (ICAP). A positive HUNTER result may occur in healthy individuals (low titer) or be associated with a variety of diseases. See interpretation chart which is not all inclusive: . Pattern Antigen Detected Suggested Disease Association Homogeneous DNA(ds,ss), SLE - High titers Nucleosomes, Histones Drug-induced SLE Speckled Sm, ACCOUNT MAINTENANCE REPRESENTATIVE, SCL-70, SLE,MCTD,PSS (diffuse form), SS-A/SS-B Sjogrens Nucleolar SCL-70, PM-1/SCL High titers Scleroderma, PM/DM Centromere Centromere PSS (limited form) w/Crest syndrome variable Nuclear Dot Sp100,[id number] Primary Biliary Cirrhosis Nuclear GP210, Primary Biliary Cirrhosis Membrane italia A,B,C Performed By: #### P REG #### [facility] [address] [place] [address] Dr. Esthela Stevens Nuclear Dot Pattern Normal [facility] Comment on above: Performed By: #### P REG #### [facility] [address] [place] [address] Dr. Esthela Stevens Nuclear Membrane Pattern Normal [facility] Comment on above: Performed By: #### P REG #### [facility] [address] [place] [address] Dr. Esthela Stevens Nucleolar Pattern Normal [facility] Comment on above: Performed By: #### P REG #### [facility] [address] [place] [address] Dr. Esthela Stevens PCNA Pattern Normal [facility] Comment on above: Performed By: #### P REG #### [facility] [address] [place] [address] Dr. Esthela Stevens Speckled Pattern Normal [facility] Comment on above: Performed By: #### P REG #### [facility] [address] [place] [address] Dr. Esthela Stevens Spindle Apparatus Pattern Normal [facility] Comment on above: Performed By: #### P REG #### [facility] [address] [place] [address] Dr. Esthela Stevens ANTISTREPTOLYSIN O AB (ASO)o n 09-01-2022 Antistreptolysin O Ab 58.8 IU/mL Normal 0.0-200.0 [facility] Comment on above: Performed By: #### L IVER, LDH, BMP #### [facility] [address] [place] [address] Dr. Esthela Stevens INSULINon 09-01-2022 Insulin 12.2 uIU/mL Normal 2.6-24.9 [facility] Comment on above: Performed By: #### I NSULIN #### [facility] [address] [place] [address] Dr. Esthela Stevens RHEUMATOID FACTORon 09-01-19 23 RA Latex Turbid. <10.0 Normal <14.0 [facility] Comment on above: Performed By: #### L IVER, LDH, BMP #### [facility] [address] [address] [address] Esthela Stevens CBC AUTO DIFFon 08-31-2022 BASO # 0.0 103/ul Normal 0.0-0.1 [facility] Comment on above: Performed By: #### P REG #### [facility] [address] [place] [address] Dr. Esthela Stevens Basophils/100 WBC (Bld) 0.6 % Normal 0.2-2.0 [facility] Comment on above: Performed By: #### P REG #### [facility] [address] [place] [address] Dr. Esthela Stevens EO # 0.1 103/ul Normal 0.0-0.7 [facility] Comment on above: Performed By: #### P REG #### [facility] [address] [place] [address] Dr. Eshtela Stevens Eosinophils/100 WBC (Bld) 1.5 % Normal 0.9-7.0 [facility] Comment on above: Performed By: #### P REG #### [facility] [address] [place] [address] Dr. Esthela Stevens Erythrocyte distribution width (RBC) [Ratio] 12.7 % Normal 11.0-15.0 [facility] Comment on above: Performed By: #### P REG #### [facility] [address] [place] [address] Dr. Esthela Stevens Hematocrit (Bld) [Volume fraction] 38.4 % Normal 36.0-48.0 [facility] Comment on above: Performed By: #### P REG #### [facility] [address] [place] [address] Dr. Esthela Stevens Hemoglobin (Bld) [Mass/Vol] 12.7 g/dL Normal 12.0-16.0 [facility] Comment on above: Performed By: #### P REG #### [facility] [address] [place] [address] Dr. Esthela Stevens IG # 0.02 10e3/ul Normal 0.00-0.03 [facility] Comment on above: Performed By: #### P REG #### [facility] [address] [address] [address] Esthela Stevens IG % 0.3 % Normal 0.0-0.5 [facility] Comment on above: Performed By: #### P REG #### [facility] [address] [place] [address] Dr. Esthela Stevens LYMPH # 2.0 103/ul Normal 1.2-3.8 [facility] Comment on above: Performed By: #### P REG #### [facility] [address] [place] [address] Dr. Esthela Stevens Lymphocytes/100 WBC (Bld) 31.2 % Normal 20.5-60.0 [facility] Comment on above: Performed By: #### P REG #### [facility] [address] [place] [address] Dr. Esthela Stevens MANUAL DIFF REQ NO Normal [facility] Comment on above: Performed By: #### P REG #### [facility] [address] [place] [address] Dr. Esthela Stevens MCH (RBC) [Entitic mass] 27.1 pg Normal 26.7-34.0 [facility] Comment on above: Performed By: #### P REG #### [facility] [address] [place] [address] Dr. Esthela Stevens MCHC (RBC) [Mass/Vol] 33.1 g/dL Normal 29.9-35.2 [facility] Comment on above: Performed By: #### P REG #### [facility] [address] [place] [address] Dr. Esthela Stevens MCV (RBC) [Entitic vol] 82.1 fL Normal 81.0-99.0 [facility] Comment on above: Performed By: #### P REG #### [facility] [address] [place] [address] Dr. Esthela Stevens MONO # 0.4 103/ul Normal 0.3-0.8 [facility] Comment on above: Performed By: #### P REG #### [facility] [address] [place] [address] Dr. Esthela Stevens Monocytes/100 WBC (Bld) 6.4 % Normal 1.7-12.0 [facility] Comment on above: Performed By: #### P REG #### [facility] [address] [place] [address] Dr. Esthela Stevens NEUT # 3.9 103/ul Normal 1.4-6.5 [facility] Comment on above: Performed By: #### P REG #### [facility] [address] [place] [address] Dr. Esthela Stevens Neutrophils/100 WBC (Bld) 60.0 % Normal 43.0-75.0 [facility] Comment on above: Performed By: #### P REG #### [facility] [address] [place] [address] Dr. Esthela Stevens Platelet mean volume (Bld) [Entitic vol] 9.2 fL Critically low 9.5-13.5 [facility] Comment on above: Performed By: #### P REG #### [facility] [address] [place] [address] Dr. Esthela Stevens PLT 390 103/ul Normal 150-450 [facility] Comment on above: Performed By: #### P REG #### [facility] [address] [place] [address] Dr. Esthela Stevens RBC 4.68 106/ul Normal 4.20-5.40 [facility] Comment on above: Performed By: #### P REG #### [facility] [address] [place] [address] Dr. Esthela Stevens WBC 6.5 103/ul Normal 4.0-11.0 [facility] Comment on above: Performed By: #### P REG #### [facility] [address] [place] [address] Dr. Esthela Stevens CRPon 08-31-2022 CRP [Mass/Vol] mg/L Normal <=1.0 [facility] Comment on above: Performed By: #### L IVER, LDH, BMP #### [facility] [address] [address] [address] Esthela Stevens FREE THYROXINE INDEX T7on FTI 2.94 Normal 1.30-4.50 [facility] Comment on above: Performed By: #### L IVER, LDH, BMP #### [facility] [address] [place] [address] Dr. Esthela Stevens T3U 33.0 % Normal 30.0-39.0 [facility] Comment on above: Performed By: #### L IVER, LDH, BMP #### [facility] [address] [place] [address] Dr. Esthela Stevens T4 [Mass/Vol] 8.90 ug/dL Normal 4.80-13.90 [facility] Comment on above: Performed By: #### L IVER, LDH, BMP #### [facility] [address] [place] [address] Dr. Esthela Stevens GLYCOHEMOGLOBIN A1Con 2022 ADA RECOMMENDATION SEE BELOW Normal [facility] Comment on above: Result Comment: ADA RECOMMENDED LIMIT 4.0 - 6.0 ADA THERAPEUTIC TARGET < 7.0 ACTION SUGGESTED > 7.0 Performed By: #### L IVER, LDH, BMP #### [facility] [address] [place] [address] Dr. Esthela Stevens Glucose [Mass/Vol] 111 mg/dL Normal [facility] Comment on above: Performed By: #### L IVER, LDH, BMP #### [facility] [address] [place] [address] Dr. Esthela Stevens HbA1c (Bld) [Mass fraction] 5.5 % Normal 4.5-6.2 [facility] Comment on above: Performed By: #### L IVER, LDH, BMP #### [facility] [address] [place] [address] Dr. Esthela Stevens IRONon 08-31-2022 Iron [Mass/Vol] 34.0 ug/dL Critically low 50.0-170.0 [facility] Comment on above: Performed By: #### L IVER, LDH, BMP #### [facility] [address] [address] [address] Esthela Stevens LIPID PROFILEon 08-31-2022 CHOL-HDL RATIO NORM SEE BELOW Normal [facility] Comment on above: Result Comment: 3.3 - 4.4 LOW RISK 4.4 - 7.1 AVERAGE RISK 7.1 - 11.0 MODERATE RISK >11.0 HIGH RISK Performed By: #### L IVER, LDH, BMP #### [facility] [address] [place] [address] Dr. Esthela Stevens Cholesterol [Mass/Vol] 168 mg/dL Normal <=200 [facility] Comment on above: Performed By: #### L IVER, LDH, BMP #### [facility] [address] [place] [address] Dr. Esthela Stevens Cholesterol in HDL [Mass/Vol] 51 mg/dL Normal 40-60 [facility] Comment on above: Performed By: #### L IVER, LDH, BMP #### [facility] [address] [place] [address] Dr. Esthela Stevens Cholesterol in LDL [Mass/Vol] 91.8 mg/dL Normal [facility] Comment on above: Performed By: #### L IVER, LDH, BMP #### [facility] [address] [place] [address] Dr. Esthela Stevens Cholesterol.total/Ch olesterol in HDL [Mass ratio] 3.3 {ratio} Normal [facility] Comment on above: Performed By: #### L IVER, LDH, BMP #### [facility] [address] [place] [address] Dr. Esthela Stevens HDL NORMAL > or = 60 mg/dl - LOW CARDIOVASCULAR RISK <40 mg/dl - HIGH CARDIOVASCULAR RISK Normal [facility] Comment on above: Performed By: #### L IVER, LDH, BMP #### [facility] [address] [place] [address] Dr. Esthela Stevens LDL CALC NORMAL SEE BELOW Normal [facility] Comment on above: Result Comment: <100 mg/dl OPTIMAL 100 - 129 mg/dl NEAR OR ABOVE OPTIMAL 130 - 159 mg/dl BORDERLINE HIGH 160 - 189 mg/dl HIGH >190 mg/dl VERY HIGH Performed By: #### L IVER, LDH, BMP #### [facility] [address] [address] [address] Esthela Stevens Triglyceride [Mass/Vol] 126 mg/dL Normal <=150 [facility] Comment on above: Performed By: #### L IVER, LDH, BMP #### [facility] [address] [address] [address] Esthela Stevens VLDL CALC 25.2 mg/dL Normal [facility] Comment on above: Performed By: #### L IVER, LDH, BMP #### [facility] [address] [place] [address] Dr. Esthela Stevens PROF 14(COMP METB)on 023 Albumin [Mass/Vol] 4.2 g/dL Normal 3.4-5.0 [facility] Comment on above: Performed By: #### L IVER, LDH, BMP #### [facility] [address] [place] [address] Dr. Esthela Stevens Albumin/Globulin [Mass ratio] 1.1 {ratio} Normal [facility] Comment on above: Performed By: #### L IVER, LDH, BMP #### [facility] [address] [place] [address] Dr. Esthela Stevens ALP [Catalytic activity/Vol] 74 U/L Normal 46-116 [facility] Comment on above: Performed By: #### L IVER, LDH, BMP #### [facility] [address] [place] [address] Dr. Esthela Stevens ALT [Catalytic activity/Vol] 57 U/L Normal 14-59 [facility] Comment on above: Performed By: #### L IVER, LDH, BMP #### [facility] [address] [place] [address] Dr. Esthela Stevens Anion gap [Moles/Vol] 15.0 mmol/L Normal [facility] Comment on above: Performed By: #### L IVER, LDH, BMP #### [facility] [address] [place] [address] Dr. Esthela Stevens AST [Catalytic activity/Vol] 25 U/L Normal 15-37 [facility] Comment on above: Performed By: #### L IVER, LDH, BMP #### [facility] [address] [place] [address] Dr. Esthela Stevens Bilirubin [Mass/Vol] 0.4 mg/dL Normal 0.2-1.0 [facility] Comment on above: Performed By: #### L IVER, LDH, BMP #### [facility] [address] [place] [address] Dr. Esthela Stevens Calcium [Mass/Vol] 9.4 mg/dL Normal 8.5-10.1 [facility] Comment on above: Performed By: #### L IVER, LDH, BMP #### [facility] [address] [place] [address] Dr. Esthela Stevens Chloride [Moles/Vol] 102 mmol/L Normal 98-107 [facility] Comment on above: Performed By: #### L IVER, LDH, BMP #### [facility] [address] [place] [address] Dr. Esthela Stevens CO2 [Moles/Vol] 27.0 mmol/L Normal 21.0-32.0 [facility] Comment on above: Performed By: #### L IVER, LDH, BMP #### [facility] [address] [place] [address] Dr. Esthela Stevens Creatinine [Mass/Vol] 0.61 mg/dL Normal 0.55-1.02 [facility] Comment on above: Performed By: #### L IVER, LDH, BMP #### [facility] [address] [place] [address] Dr. Esthela Stevens EGFR-AF [place]THER[place]ISH >60 Normal >=60 [facility] Comment on above: Performed By: #### L IVER, LDH, BMP #### [facility] [address] [place] [address] Dr. Esthela Stevens EGFR-NON AF [place] >60 Normal >=60 [facility] Comment on above: Performed By: #### L IVER, LDH, BMP #### [facility] [address] [address] [address] Esthela Stevens Globulin (S) [Mass/Vol] 3.7 g/dL Normal [facility] Comment on above: Performed By: #### L IVER, LDH, BMP #### [facility] [address] [place] [address] Dr. Esthela Stevens Glucose [Mass/Vol] 88 mg/dL Normal 74-106 [facility] Comment on above: Performed By: #### L IVER, LDH, BMP #### [facility] [address] [place] [address] Dr. Esthela Stevens Potassium [Moles/Vol] 4.0 mmol/L Normal 3.5-5.1 [facility] Comment on above: Performed By: #### L IVER, LDH, BMP #### [facility] [address] [place] [address] Dr. Esthela Stevens Protein [Mass/Vol] 7.9 g/dL Normal 6.4-8.2 [facility] Comment on above: Performed By: #### L IVER, LDH, BMP #### [facility] [address] [place] [address] Dr. Esthela Stevens Sodium [Moles/Vol] 140 mmol/L Normal 136-145 [facility] Comment on above: Performed By: #### L IVER, LDH, BMP #### [facility] [address] [place] [address] Dr. Esthela Stevens Urea nitrogen [Mass/Vol] 4.0 mg/dL Critically low 7.0-18.0 [facility] Comment on above: Performed By: #### L IVER, LDH, BMP #### [facility] [address] [place] [address] Dr. Esthela Stevens Urea nitrogen/Creatinine [Mass ratio] 6.6 mg/mg Normal [facility] Comment on above: Performed By: #### L IVER, LDH, BMP #### [facility] [address] [place] [address] Dr. Esthela Stevens TSHon 08-31-2022 TSH 1.348 uIU/mL Normal 0.358-3.740 [facility] Comment on above: Performed By: #### L IVER, LDH, BMP #### [facility] [address] [place] [address] Dr. Esthela Stevens URIC ACID SERUMon 08-31-2022 Urate [Mass/Vol] 4.4 mg/dL Normal 2.6-6.0 [facility] Comment on above: Performed By: #### L IVER, LDH, BMP #### [facility] [address] [place] [address] Dr. Esthela Stevens VITAMIN D 25 OHon 08-31-2022 VIT D 25-OH 18.0 ng/mL Normal [facility] Comment on above: Performed By: #### L IVER, LDH, BMP #### [facility] [address] [place] [address] Dr. Esthela Stevens VIT D RANGES SEE BELOW Normal [facility] Comment on above: Result Comment: <20 ng/mL Vit D deficient 20 - <30 ng/mL Vit D insufficient 30 - 100 ng/mL Vit D sufficient >100 ng/mL Potential Toxicity Performed By: #### L IVER, LDH, BMP #### [facility] [address] [place] [address] Dr. Esthela Stevens LIVER PROFILEon 08-24-2022 Albumin [Mass/Vol] 3.9 g/dL Normal 3.4-5.0 [facility] Comment on above: Performed By: #### L IVER, LDH, BMP #### [facility] [address] [place] [address] Dr. Esthela Stevens Albumin/Globulin [Mass ratio] 1.0 {ratio} Normal [facility] Comment on above: Performed By: #### L IVER, LDH, BMP #### [facility] [address] [place] [address] Dr. Esthela Stevens ALP [Catalytic activity/Vol] 70 U/L Normal 46-116 [facility] Comment on above: Performed By: #### L IVER, LDH, BMP #### [facility] [address] [place] [address] Dr. Esthela Stevens ALT [Catalytic activity/Vol] 44 U/L Normal 14-59 [facility] Comment on above: Performed By: #### L IVER, LDH, BMP #### [facility] [address] [place] [address] Dr. Esthela Stevens AST [Catalytic activity/Vol] 22 U/L Normal 15-37 [facility] Comment on above: Performed By: #### L IVER, LDH, BMP #### [facility] [address] [place] [address] Dr. Esthela Stevens BILI, CONJUGATED 0.1 mg/dL Normal 0.0-0.2 [facility] Comment on above: Performed By: #### L IVER, LDH, BMP #### [facility] [address] [place] [address] Dr. Esthela Stevens Bilirubin [Mass/Vol] 0.3 mg/dL Normal 0.2-1.0 [facility] Comment on above: Performed By: #### L IVER, LDH, BMP #### [facility] [address] [place] [address] Dr. Esthela Stevens Globulin (S) [Mass/Vol] 3.9 g/dL Normal [facility] Comment on above: Performed By: #### L IVER, LDH, BMP #### [facility] [address] [place] [address] Dr. Esthela Stevens Protein [Mass/Vol] 7.8 g/dL Normal 6.4-8.2 [facility] Comment on above: Performed By: #### L IVER, LDH, BMP #### [facility] [address] [place] 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 TECHNIQUE: CT scanning was performed through the abdomen without intravenous contrast. CT scanning was then performed through the abdomen following the administration of intravenous contrast, during the arterial phase, and then again through the abdomen and pelvis during the portal venous phase. PROTOCOL: CT scanning was performed without IV contrast and in the arterial and portal venous phases following IV contrast administration. FINDINGS: LOWER THORAX: Stable 5 mm subpleural nodule in the left lower lobe (series 10, image 26). Otherwise unremarkable. LIVER: No focal hepatic lesions. No abnormal arterial enhancement. The main portal vein is patent. BILIARY: Unremarkable. PANCREAS: Unremarkable. SPLEEN: Unremarkable. ADRENAL GLANDS: Unremarkable. KIDNEYS/URETERS: Unremarkable. PELVIC ORGANS/BLADDER: Small involuting corpus luteum in the left ovary. Partially distended bladder, uterus and adnexa are otherwise unremarkable. GI TRACT: Status post interval right hemicolectomy. No significant abnormality is seen at the surgical site. The stomach is grossly unremarkable. No focal bowel wall thickening or bowel obstruction. PERITONEUM: No significant free fluid. No free air. A few small soft tissue nodules are seen in the anterior abdomen, which are new or increased in size compared to prior. Vendor Manager 0.8 cm x 0.5 cm soft tissue nodule in the left anterior abdomen is seen on series 10, image 67, not seen on prior. Additional small nodule in the right anterior abdomen (series 10, image 70) is increased in size compared to prior. LYMPH NODES: No pathologically enlarged lymph nodes. VESSELS: Unremarkable. BONES AND SOFT TISSUES: New postsurgical changes in the anterior abdominal wall. Tiny fat-containing umbilical hernia. No suspicious osseous lesions. IMPRESSION: 1. Status post interval right hemicolectomy, with no definite CT evidence for recurrent disease at the surgical site. 2. A few small new/increased peritoneal soft tissue nodules in the anterior abdomen may be related to interval surgery, but attention on follow-up imaging is advised to exclude peritoneal disease. Shalini Mcarthur M.D. This report has been electronically signed and verified by the Radiologist whose name is printed above. / This report contains privileged and confidential information and is intended solely for the use of the individual or entity to which it is addressed. If you are not the intended recipient of this report, you are hereby notified that any copying, distribution, dissemination or action taken in relation to the contents of this report is strictly prohibited and may be unlawful. If you have received this report in error, please notify the sender immediately at [phone] and permanently delete the original report and destroy any copies or printouts. Normal [facility] CREAT/GFRon 08-19-2022 Creatinine [Mass/Vol] 0.85 mg/dL 0.50 - 1.20 mg/dL [facility] GFR/1.73 sq M.predicted CKD-EPI (S/P/Bld) [Vol rate/Area] - PINF [facility] Comment on above: Reported eGFR is bas ed on the CKD-EPI 2020 equation using creatinine, age, and sex. Interpretation and review of laboratory results Normal [facility] Test performed at address of the patient encounter. 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 CT DOSE: DLP: 554 mGy x cm kVp: 120 TECHNIQUE: Approximately 70 minutes following the injection of 4.1 mCi of Gallium-68 Dotatate, the patient was positioned on the Siemens Biograph mCT TOF< PET/CT-64, Tera imaging unit. A low resolution non-contrast CT was obtained from the top of the head through the mid-femurs for use in attenuation correction and anatomic correlation. PET emission scans of this anatomic region were acquired shortly thereafter. Axial, sagittal, coronal and maximal intensity projection reconstruction images were presented for interpretation. FINDINGS: Head/Neck: Physiologic activity seen within the pituitary gland, salivary glands, and thyroid. Chest: Mild uptake within the anterior mediastinum likely relates to thymic tissue. Abdomen/Pelvis: Intense physiologic uptake seen within the spleen and adrenal glands which can obscure potential disease in these structures. Milder physiologic uptake seen within the liver. Mild diffuse nonspecific uptake within the uterus. Musculoskeletal: Normal uptake within the bones. IMPRESSION: No definite evidence of somatostatin receptor avid malignancy. Normal [facility] PT Skull base to mid-thighon 08-19-2022 IMPRESSION: No definite evidence of somatostatin receptor avid malignancy. 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 CT DOSE: DLP: 554 mGy x cm kVp: 120 TECHNIQUE: Approximately 70 minutes following the injection of 4.1 mCi of Gallium-68 Dotatate, the patient was positioned on the Siemens Biograph mCT TOF< PET/CT-64, Tera imaging unit. A low resolution non-contrast CT was obtained from the top of the head through the mid-femurs for use in attenuation correction and anatomic correlation. PET emission scans of this anatomic region were acquired shortly thereafter. Axial, sagittal, coronal and maximal intensity projection reconstruction images were presented for interpretation. FINDINGS: Head/Neck: Physiologic activity seen within the pituitary gland, salivary glands, and thyroid. Chest: Mild uptake within the anterior mediastinum likely relates to thymic tissue. Abdomen/Pelvis: Intense physiologic uptake seen within the spleen and adrenal glands which can obscure potential disease in these structures. Milder physiologic uptake seen within the liver. Mild diffuse nonspecific uptake within the uterus. Musculoskeletal: Normal uptake within the bones. 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 CT DOSE: DLP: 554 mGy x cm kVp: 120 TECHNIQUE: Approximately 70 minutes following the injection of 4.1 mCi of Gallium-68 Dotatate, the patient was positioned on the Siemens Biograph mCT TOF< PET/CT-64, Tera imaging unit. A low resolution non-contrast CT was obtained from the top of the head through the mid-femurs for use in attenuation correction and anatomic correlation. PET emission scans of this anatomic region were acquired shortly thereafter. Axial, sagittal, coronal and maximal intensity projection reconstruction images were presented for interpretation. FINDINGS: Head/Neck: Physiologic activity seen within the pituitary gland, salivary glands, and thyroid. Chest: Mild uptake within the anterior mediastinum likely relates to thymic tissue. Abdomen/Pelvis: Intense physiologic uptake seen within the spleen and adrenal glands which can obscure potential disease in these structures. Milder physiologic uptake seen within the liver. Mild diffuse nonspecific uptake within the uterus. Musculoskeletal: Normal uptake within the bones. IMPRESSION IMPRESSION: No definite evidence of somatostatin receptor avid malignancy. [facility] Radiology Study observation (narrative) [facility] PT Skull base to mid-thighOr dered By: Hawa Pichardo on 08-19-2022 [facility] Work Phone: CBC AUTO DIFFon 08-12-2022 BASO # 0.1 103/ul Normal 0.0-0.1 [facility] Comment on above: Performed By: #### L IVER, LDH, BMP #### [facility] [address] [address] [address] Esthela Stevens Basophils/100 WBC (Bld) 1.0 % Normal 0.2-2.0 [facility] Comment on above: Performed By: #### L IVER, LDH, BMP #### [facility] [address] [address] [address] Esthela Stevens EO # 0.1 103/ul Normal 0.0-0.7 [facility] Comment on above: Performed By: #### L IVER, LDH, BMP #### [facility] [address] [address] [address] Esthela Stevens Eosinophils/100 WBC (Bld) 1.6 % Normal 0.9-7.0 [facility] Comment on above: Performed By: #### L IVER, LDH, BMP #### [facility] [address] [address] [address] Esthela Stevens Erythrocyte distribution width (RBC) [Ratio] 12.5 % Normal 11.0-15.0 [facility] Comment on above: Performed By: #### L IVER, LDH, BMP #### [facility] [address] [address] [address] Esthela Stevens Hematocrit (Bld) [Volume fraction] 40.1 % Normal 36.0-48.0 [facility] Comment on above: Performed By: #### L IVER, LDH, BMP #### [facility] [address] [place] [address] Dr. Esthela Stevens Hemoglobin (Bld) [Mass/Vol] 12.3 g/dL Normal 12.0-16.0 [facility] Comment on above: Performed By: #### L IVER, LDH, BMP #### [facility] [address] [place] [address] Dr. Esthela Stevens IG # 0.01 10e3/ul Normal 0.00-0.03 [facility] Comment on above: Performed By: #### L IVER, LDH, BMP #### [facility] [address] [place] [address] Dr. Esthela Stevens IG % 0.2 % Normal 0.0-0.5 [facility] Comment on above: Performed By: #### L IVER, LDH, BMP #### [facility] [address] [place] [address] Dr. Esthela Stevens LYMPH # 1.8 103/ul Normal 1.2-3.8 [facility] Comment on above: Performed By: #### L IVER, LDH, BMP #### [facility] [address] [place] [address] Dr. Esthela Stevens Lymphocytes/100 WBC (Bld) 28.0 % Normal 20.5-60.0 [facility] Comment on above: Performed By: #### L IVER, LDH, BMP #### [facility] [address] [place] [address] Dr. Esthela Stevens MANUAL DIFF REQ NO Normal [facility] Comment on above: Performed By: #### L IVER, LDH, BMP #### [facility] [address] [place] [address] Dr. Esthela Stevens MCH (RBC) [Entitic mass] 26.8 pg Normal 26.7-34.0 [facility] Comment on above: Performed By: #### L IVER, LDH, BMP #### [facility] [address] [place] [address] Dr. Esthela Stevens MCHC (RBC) [Mass/Vol] 30.7 g/dL Normal 29.9-35.2 [facility] Comment on above: Performed By: #### L IVER, LDH, BMP #### [facility] [address] [address] [address] Esthela Stevens MCV (RBC) [Entitic vol] 87.4 fL Normal 81.0-99.0 [facility] Comment on above: Performed By: #### L IVER, LDH, BMP #### [facility] [address] [address] [address] Esthela Stevens MONO # 0.6 103/ul Normal 0.3-0.8 [facility] Comment on above: Performed By: #### L IVER, LDH, BMP #### [facility] [address] [place] [address] Dr. Esthela Stevens Monocytes/100 WBC (Bld) 9.4 % Normal 1.7-12.0 [facility] Comment on above: Performed By: #### L IVER, LDH, BMP #### [facility] [address] [address] [address] Esthela Stevens NEUT # 3.8 103/ul Normal 1.4-6.5 [facility] [facility] Comment on above: Performed By: #### L IVER, LDH, BMP #### [facility] [address] [address] [address] Esthela Stevens Neutrophils/100 WBC (Bld) 59.8 % Normal 43.0-75.0 [facility] Comment on above: Performed By: #### L IVER, LDH, BMP #### [facility] [address] [address] [address] Esthela Stevens Platelet mean volume (Bld) [Entitic vol] 9.6 fL Normal 9.5-13.5 [facility] Comment on above: Performed By: #### L IVER, LDH, BMP #### [facility] [address] [address] [address] Esthela Stevens PLT 341 103/ul Normal 150-450 [facility] Comment on above: Performed By: #### L IVER, LDH, BMP #### [facility] [address] [place], [place] [address] Dr. Esthela Stevens RBC 4.59 106/ul Normal 4.20-5.40 [facility] Comment on above: Performed By: #### L IVER, LDH, BMP #### [facility] [address] [place], [place] [address] Dr. Esthela Stevens WBC 6.3 103/ul Normal 4.0-11.0 [facility] Comment on above: Performed By: #### L IVER, LDH, BMP #### [facility] [address] [place], [place] [address] ABD/PELV W CONon 08-12-19 CT ABD/PELV W CON INDICATION: ABDOMINAL DISTENSION (GASEOUS) EXAMINATION: CT ABDOMEN AND PELVIS WITH CONTRAST TECHNIQUE: Helically acquired images were obtained of the abdomen and pelvis following intravenous administration of iodinated contrast. A radiation dose optimization technique was used for this scan. ENTERIC CONTRAST: None. COMPARISON: 02/03/2022 ____ FINDINGS: LOWER CHEST: The visualized portions of the lung bases are clear. The heart size is within normal limits. A pericardial effusion is not identified. STOMACH: Unremarkable. LIVER: No hepatic mass or lesion is identified. GALLBLADDER AND BILIARY TREE: No gallstones are identified. The gallbladder does not appear distended. No gallbladder wall thickening is identified. There is no visible pericholecystic fluid. No intra- or extrahepatic biliary ductal dilation is identified. PANCREAS: A pancreatic mass or lesion is not identified. The pancreatic duct does not appear dilated. SPLEEN: A splenic lesion is not identified. ADRENAL GLANDS: The adrenal glands appear normal. KIDNEYS AND URETERS: The kidneys appear normal. The ureters are unremarkable in appearance. PERITONEUM: No free intra-abdominal air is identified. There is a small volume of free pelvic fluid. BOWEL: The patient has apparently had an ascending colectomy with ileocolic anastomosis, without apparent complication. No significant colonic diverticula are observed. LYMPH NODES: No enlarged mesenteric or retroperitoneal lymph nodes. VESSELS: An aneurysm is not identified. No calcifications are observed within the abdominal aorta. UTERUS: Normal in morphology. No mass or distortion detected. OVARIES: The right ovary is unremarkable in appearance. A peripherally enhancing centrally low-density left ovarian structure measuring up to 1.9 cm in diameter likely represents a follicular cyst. URINARY BLADDER: Unremarkable. ABDOMINAL WALL: No abdominal or pelvic wall hernia. MUSCULOSKELETAL: A presumed right L5 hemilaminectomy defect is unchanged. IMPRESSION: 1. Small volume of free pelvic fluid. This is a nonspecific finding. This volume of free fluid may be physiologic in nature. 2. Peripherally enhancing centrally low density left ovarian structure, likely a follicular cyst. 3. No bowel distention detected. Electronically authenticated by: TIMMY SHAY Date: 2022-08-12 17:04 Normal [facility] CULTURE URINEon 08-12-2022 CULTURE URINE Culture Observations: MODERATE GROWTH OF MIXED GENITAL SUNITA. NO POTENTIAL PATHOGENS SEEN. Normal [facility] Comment on above: Performed By: #### L IVER, LDH, BMP #### [facility] [address] [place] [address] Dr. Esthela Stevens ER URINE PROFILEon 3 Bilirubin Ql (U) Negative Normal NEGATIVE [facility] Comment on above: Performed By: #### P REG #### [facility] [address] [place] [address] Dr. Esthela Stevens Clarity (U) CLEAR Normal CLEAR [facility] Comment on above: Performed By: #### P REG #### [facility] [address] [place] [address] Dr. Esthela Stevens Color (U) LT. YELLOW Normal YELLOW [facility] Comment on above: Performed By: #### P REG #### [facility] [address] [place] [address] Dr. Esthela ARGUELLES A micrscopic examination will be performed if indicated. Normal [facility] Comment on above: Performed By: #### P REG #### [facility] [address] [place] [address] Dr. Esthela Stevens Glucose Ql (U) Negative Normal NEGATIVE [facility] Comment on above: Performed By: #### P REG #### [facility] [address] [place] [address] Dr. Esthela Stevens Hemoglobin Ql (U) Negative Normal NEGATIVE [facility] Comment on above: Performed By: #### P REG #### [facility] [address] [place] [address] Dr. Esthela Stevens Ketones Ql (U) Negative Normal NEGATIVE [facility] Comment on above: Performed By: #### P REG #### [facility] [address] [address] [address] Esthela Stevens LEUKOCYTES SMALL Abnormal NEGATIVE [facility] Comment on above: Performed By: #### P REG #### [facility] [address] [place] [address] Dr. Esthela Stevens Nitrite Ql (U) Negative Normal NEGATIVE [facility] Comment on above: Performed By: #### P REG #### [facility] [address] [place] [address] Dr. Esthela Stevens pH (U) 7.0 [pH] Normal 5-9 [facility] Comment on above: Performed By: #### P REG #### [facility] [address] [place] [address] Dr. Esthela Stevens SPEC GRAVITY 1.020 Normal 1.005-<=1.025 [facility] Comment on above: Performed By: #### P REG #### [facility] [address] [place] [address] Dr. Esthela Stevens UA PROTEIN Negative Normal NEGATIVE/ TRACE [facility] Comment on above: Performed By: #### P REG #### [facility] [address] [place] [address] Dr. Esthela Stevens UR MICRO IND INDICATED Normal [facility] Comment on above: Performed By: #### P REG #### [facility] [address] [place] [address] Dr. Esthela Stevens Urobilinogen Qn (U) 0.2 {Emeka'U}/dL Normal 0.2 - 1. 0 [facility] Comment on above: Performed By: #### P REG #### [facility] [address] [place] [address] Dr. Esthela Stevens LIPASEon 08-12-2022 Lipase [Catalytic activity/Vol] 75.0 U/L Normal 73.0-393.0 [facility] Comment on above: Performed By: #### P REG #### [facility] [address] [place] [address] Dr. Esthela Stevens URon 08-12-2022 , QUAL Negative Normal NEGATIVE [facility] Comment on above: Performed By: #### P REG #### [facility] [address] [place] [address] Dr. Esthela Stevens PROF 14(COMP METB)on 023 Albumin [Mass/Vol] 4.0 g/dL Normal 3.4-5.0 [facility] Comment on above: Performed By: #### P REG #### [facility] [address] [place] [address] Dr. Esthela Stevens Albumin/Globulin [Mass ratio] 1.1 {ratio} Normal [facility] Comment on above: Performed By: #### P REG #### [facility] [address] [place] [address] Dr. Esthela Stevens ALP [Catalytic activity/Vol] 73 U/L Normal 46-116 [facility] Comment on above: Performed By: #### P REG #### [facility] [address] [place] [address] Dr. Esthela Stevens ALT [Catalytic activity/Vol] 82 U/L Critically high 14-59 [facility] Comment on above: Performed By: #### P REG #### [facility] [address] [place] [address] Dr. Esthela Stevens Anion gap [Moles/Vol] 12.0 mmol/L Normal [facility] Comment on above: Performed By: #### P REG #### [facility] [address] [place] [address] Dr. Esthlea Stevens AST [Catalytic activity/Vol] 33 U/L Normal 15-37 [facility] Comment on above: Performed By: #### P REG #### [facility] [address] [address] [address] Esthela Stevens Bilirubin [Mass/Vol] 0.2 mg/dL Normal 0.2-1.0 [facility] Comment on above: Performed By: #### P REG #### [facility] [address] [place] [address] Dr. Esthela Stevens Calcium [Mass/Vol] 9.4 mg/dL Normal 8.5-10.1 [facility] Comment on above: Performed By: #### P REG #### [facility] [address] [place] [address] Dr. Esthela Stevens Chloride [Moles/Vol] 102 mmol/L Normal 98-107 [facility] Comment on above: Performed By: #### P REG #### [facility] [address] [place] [address] Dr. Esthela Stevens CO2 [Moles/Vol] 27.8 mmol/L Normal 21.0-32.0 [facility] Comment on above: Performed By: #### P REG #### [facility] [address] [place] [address] Dr. Esthela Stevens Creatinine [Mass/Vol] 0.69 mg/dL Normal 0.55-1.02 [facility] Comment on above: Performed By: #### P REG #### [facility] [address] [place] [address] Dr. Esthela Stevens EGFR-AF [place]THER[place]ISH >60 Normal >=60 [facility] Comment on above: Performed By: #### P REG #### [facility] [address] [place] [address] Dr. Esthela Stevens EGFR-NON AF [place]THER[place] >60 Normal >=60 [facility] Comment on above: Performed By: #### P REG #### [facility] [address] [place] [address] Dr. Esthela Stevens Globulin (S) [Mass/Vol] 3.5 g/dL Normal [facility] Comment on above: Performed By: #### P REG #### [facility] [address] [place] [address] Dr. Esthela Stevens Glucose [Mass/Vol] 109 mg/dL Critically high 74-106 [facility] Comment on above: Performed By: #### P REG #### [facility] [address] [place] [address] Dr. Esthela Stevens Potassium [Moles/Vol] 3.8 mmol/L Normal 3.5-5.1 [facility] Comment on above: Performed By: #### P REG #### [facility] [address] [place] [address] Dr. Esthela Stevens Protein [Mass/Vol] 7.5 g/dL Normal 6.4-8.2 [facility] Comment on above: Performed By: #### P REG #### [facility] [address] [place] [address] Dr. Esthela Stevens Sodium [Moles/Vol] 138 mmol/L Normal 136-145 [facility] Comment on above: Performed By: #### P REG #### [facility] [address] [place] [address] Dr. Esthela Stevens Urea nitrogen [Mass/Vol] 6.0 mg/dL Critically low 7.0-18.0 [facility] Comment on above: Performed By: #### P REG #### [facility] [address] [place] [address] Dr. Esthela Stevens Urea nitrogen/Creatinine [Mass ratio] 8.7 mg/mg Normal [facility] Comment on above: Performed By: #### P REG #### [facility] [address] [place] [address] Dr. Esthela Stevens URINE MICROSCOPIC ONLYon BACTERIA SMALL Abnormal NONE SEEN [facility] Comment on above: Performed By: #### P REG #### [facility] [address] [place] [address] Dr. Esthela Stevens Bacteria identified Cx Nom (U) INDICATED Normal [facility] Comment on above: Performed By: #### P REG #### [facility] [address] [place] [address] Dr. Esthela Stevens CAST NONE SEEN Normal NONE SEEN [facility] Comment on above: Performed By: #### P REG #### [facility] [address] [place] [address] Dr. Esthela Stevens Crystals LM Nom (Urine sed) NONE SEEN Normal NONE SEEN [facility] Comment on above: Performed By: #### P REG #### [facility] [address] [place] [address] Dr. Esthela Stevens Epithelial cells LM Ql (Urine sed) MODERATE Abnormal NONE SEEN /RARE [facility] Comment on above: Performed By: #### P REG #### [facility] [address] [place] [address] Dr. Esthela Stevens MUCOUS NONE SEEN Normal NONE SEEN [facility] Comment on above: Performed By: #### P REG #### [facility] [address] [place] [address] Dr. Esthela Stevens RBC NONE SEEN Abnormal 0-2 [facility] Comment on above: Performed By: #### P REG #### [facility] [address] [place] [address] Dr. Esthela Stevens WBC 2-5 Abnormal NONE SEEN [facility] Comment on above: Performed By: #### P REG #### [facility] [address] [place] [address] Dr. Esthela Stevens PAP ACOG PANEL 2: 21 to 31on 08-11-2022 . . Normal [facility] Comment on above: Performed By: #### [id number] #### [facility] [address] [place] [address] Dr. Esthela Stevens Age Gdln ACOG Testing - Normal [facility] Comment on above: Performed By: #### [id number] #### [facility] [address] [place] [address] Dr. Esthela Stevens DIAGNOSIS: Comment Abnormal [facility] Comment on above: Result Comment: EPIT HELIAL CELL ABNORMALITY. ATYPICAL SQUAMOUS CELLS OF UNDETERMINED SIGNIFICANCE (ASC-US). Performed By: #### [id number] #### [facility] [address] [place] [address] Dr. Esthela Stevens Electronically signed by: Comment Normal [facility] Comment on above: Result Comment: Zoe Moncada MD, Pathologist Performed By: #### [id number] #### [facility] [address] [place] [address] Dr. Esthela Stevens HPV Aptima Negative Normal Negative [facility] Comment on above: Result Comment: This nucleic acid amplification test detects fourteen high-risk HPV types (16,18,31,33,35,39,45,51,52,56,58,59,66,68) without differentiation. Performed By: #### [id number] #### [facility] [address] [place] [address] Dr. Esthela Stevens Methodology: Comment Normal [facility] Comment on above: Result Comment: This liquid based ThinPrep(R) pap test was screened with the use of an image guided system. Performed By: #### [id number] #### [facility] [address] [place] [address] Dr. Esthela Stevens Note: Comment Normal [facility] Comment on above: Result Comment: The Pap smear is a screening test designed to aid in the detection of premalignant and malignant conditions of the uterine cervix. It is not a diagnostic procedure and should not be used as the sole means of detecting cervical cancer. Both false-positive and false-negative reports do occur. . Performed By: #### [id number] #### [facility] [address] [place] [address] Dr. Esthela Stevens Pathologist Provided ICD10 Comment Normal [facility] Comment on above: Result Comment: R87. [id number] Performed By: #### [id number] #### [facility] [address] [place] [address] Dr. Esthela Stevens Performed by: Comment Normal [facility] Comment on above: Result Comment: Nevin Ardon Grass Farmer (ASCP) Performed By: #### [id number] #### [facility] [address] [place] [address] Dr. Esthela Stevens Reflex Criteria: Comment Normal [facility] Comment on above: Result Comment: See below for HPV testing results. . Performed By: #### [id number] #### [facility] [address] [place] [address] Dr. Esthela Stevens Specimen adequacy: Comment Normal [facility] Comment on above: Result Comment: Sati sfactory for evaluation. Endocervical and/or squamous metaplastic cells (endocervical component) are present. Performed By: #### [id number] #### [facility] [address] [address] [address] Esthela Stevens CALCITONINon 07-08-2022 Calcitonin <1.89 Normal <=9.53 [facility] Comment on above: Result Comment: This test was performed on the RepRegen Immunoassay platform by [employer] which is a two-site sandwich chemiluminescent immunoassay. It is important to note that assays using different manufacturers and/or methods may not be comparable. Performed By: #### Y CHGRA #### [facility] (DEFAULT) [address] [place] [phone] CBC AND ELECTRONIC DIFFon Basophils (Bld) [#/Vol] 0.04 10*3/uL Normal 0.00-0.15 [facility] Comment on above: Performed By: #### C A, IPB, CHM7, MGO #### [facility] (DEFAULT) [address] [place] [address]24 Basophils/100 WBC (Bld) 0.7 % Normal [facility] Comment on above: Performed By: #### C A, IPB, CHM7, MGO #### [facility] (DEFAULT) [address] [place] [address] 17444 DIFF STATUS Electronic Differential Normal [facility] Comment on above: Performed By: #### C A, IPB, CHM7, MGO #### [facility] (DEFAULT) [address] [place] [address] 97443 Eosinophils (Bld) [#/Vol] 0.14 10*3/uL Normal 0.00-0.42 [facility] Comment on above: Performed By: #### C A, IPB, CHM7, MGO #### [facility] (DEFAULT) [address] [place] [address] 26544 Eosinophils/100 WBC (Bld) 2.4 % Normal [facility] Comment on above: Performed By: #### C Danielle, IPB, CHM7, MGO #### [facility] (DEFAULT) [address] [place] [address]994 Hematocrit (Bld) [Volume fraction] 38.1 % Normal 34.9-44.3 [facility] Comment on above: Performed By: #### C A, IPB, CHM7, MGO #### [facility] (DEFAULT) [address] [place] [phone] Hemoglobin (Bld) [Mass/Vol] 12.2 g/dL Normal 11.4-15.2 [facility] Comment on above: Performed By: #### Dayday A, IPB, CHM7, MGO #### [facility] (DEFAULT) [address] [place] [address] 77480 Immature Grans % 0.2 % Normal [facility] Comment on above: Performed By: #### Dayday A, IPB, CHM7, MGO #### [facility] (DEFAULT) [address] [place] [address]23 Immature Grans Absolute < Normal <=0.08 [facility] Comment on above: Performed By: #### C A, IPB, CHM7, MGO #### [facility] (DEFAULT) [address] [place] [address] 12171 Lymphocytes (Bld) [#/Vol] 2.14 10*3/uL Normal 1.16-3.51 [facility] Comment on above: Performed By: #### C A, IPB, CHM7, MGO #### [facility] (DEFAULT) [address] [address] Lymphocytes/100 WBC (Bld) 36.8 % Normal [facility] Comment on above: Performed By: #### C A, IPB, CHM7, MGO #### U [facility] (DEFAULT) [address] [place] [address] 14491 MCV (RBC) [Entitic vol] 83.2 fL Normal 79.6-97.7 [facility] Comment on above: Performed By: #### RODRIGO Rangel, CHM7, MGO #### U [facility] (DEFAULT) [address] [place] [address] 12086 Mean Cell Hgb 26.6 pg Normal 25.9-33.9 [facility] Comment on above: Performed By: #### Dayday Santos, IPB, CHM7, MGO #### U [facility] (DEFAULT) [address] [place] [address] 27849 Mean Cell Hgb Conc 32.0 g/dL Normal 31.4-35.9 [facility] Comment on above: Performed By: #### Dayday Santos IPB, CHM7, MGO #### [facility] (DEFAULT) [address] [place] [address] 19996 Monocytes (Bld) [#/Vol] 0.49 10*3/uL Normal 0.22-0.87 [facility] Comment on above: Performed By: #### SHANEKA RangelB, CHM7, MGO #### [facility] (DEFAULT) [address] [place] [address] 06199 Monocytes/100 WBC (Bld) 8.4 % Normal [facility] Comment on above: Performed By: #### Dayday Santos, IPB, CHM7, MGO #### U [facility] (DEFAULT) [address] [place] [address] 04171 Nucleated RBC 0.0 /100 WBC Normal <=0.2 [facility] Comment on above: Performed By: #### Dayday Santos, IPB, CHM7, MGO #### U [facility] (DEFAULT) [address] [place] [address] 31983 Platelet mean volume (Bld) [Entitic vol] 9.0 fL Normal 8.5-12.2 [facility] Comment on above: Performed By: #### C A, IPB, CHM7, MGO #### [facility] (DEFAULT) [address] [place] [address] 82038 Platelets (Bld) [#/Vol] 273 10*3/uL Normal 150-393 [facility] Comment on above: Performed By: #### C A, IPB, CHM7, MGO #### [facility] (DEFAULT) [address] [place] [address] 81543 RBC (Bld) [#/Vol] 4.58 10*6/uL Normal 3.91-5.04 [facility] Comment on above: Performed By: #### C A, IPB, CHM7, MGO #### [facility] (DEFAULT) [address] [place] [address] 53753 RBC Distribution 13.0 % Normal 10.8-14.9 [facility] Comment on above: Performed By: #### Dayday A, IPB, CHM7, MGO #### [facility] (DEFAULT) [address] [place] [address] 35868 Segs + Bands Auto 51.5 % Normal [facility] Comment on above: Performed By: #### C A, IPB, CHM7, MGO #### [facility] (DEFAULT) [address] [place] [address] 44952 Segs + Bands,Absolute Auto 2.99 K/uL Normal 1.64-7.28 [facility] Comment on above: Performed By: #### C A, IPB, CHM7, MGO #### [facility] (DEFAULT) [address] [place] [address] 81593 WBC (Bld) [#/Vol] 5.81 10*3/uL Normal 3.99-11.19 [facility] Comment on above: Performed By: #### C A, IPB, CHM7, MGO #### [facility] (DEFAULT) [address] [place] [address] 56713 CHROMOGRANIN Aon 07-08-2022 Chromogranin A 25 ng/mL Normal <93 [facility] Comment on above: Result Comment: ADDITIONAL INFORMATION This test was developed and its performance characteristics determined by [facility] in a manner consistent with CLIA requirements. This test has not been cleared or approved by the U.S. Food and Drug Administration. In some immunoassays, the presence of unusually high concentrations of analyte may result in a high-dose hook effect. This may result in a lower or even normal measured analyte concentration. If the reported result is inconsistent with the clinical presentation, the laboratory should be alerted for troubleshooting. For diagnostic purposes, these immunoassay results should always be assessed in conjunction with the patients medical history, clinical examination and other findings. The testing method is a homogeneous time-resolved immunofluorescent assay manufactured by [employer] and performed on the [employer] Kryptor Compact Plus. Values obtained with different assay methods or kits may be different and cannot be used interchangeably. Test results cannot be interpreted as absolute evidence for the presence or absence of malignant disease. Test Performed by: [id number] [place] [address] Tester Wafer Substrate: Ed Russo M.D. Ph.D.; CLIA# [id number] Performed By: #### C Danielle, IPB, CHM7, MGO #### [facility] (DEFAULT) [address] [place] [address] COMPREHENSIVE METABOLIC PANE Shamir 07-08-2022 Albumin [Mass/Vol] 4.7 g/dL Normal 3.5-5.0 [facility] Comment on above: Performed By: #### C A, IPB, CHM7, MGO, HFP #### [facility] (DEFAULT) [address] [address] ALP [Catalytic activity/Vol] 67 U/L Normal 32-126 [facility] Comment on above: Performed By: #### C A, IPB, CHM7, MGO, HFP #### [facility] (DEFAULT) [address] [place] [address] ALT [Catalytic activity/Vol] 88 U/L High 9-48 [facility] Comment on above: Performed By: #### C A, IPB, CHM7, MGO, HFP #### [facility] (DEFAULT) [address] [place] [address] Anion gap [Moles/Vol] 12 mmol/L Normal 7-17 [facility] Comment on above: Performed By: #### C A, IPB, CHM7, MGO, HFP #### [facility] (DEFAULT) [address] [place] [address] AST [Catalytic activity/Vol] 42 U/L High 10-39 [facility] Comment on above: Performed By: #### C A, IPB, CHM7, MGO, HFP #### [facility] (DEFAULT) [address] [place] [address] Bilirubin [Mass/Vol] 0.5 mg/dL Normal <1.5 [facility] Comment on above: Performed By: #### C A, IPB, CHM7, MGO, HFP #### [facility] (DEFAULT) [address] [place] [address]173 Calcium [Mass/Vol] 9.8 mg/dL Normal 8.6-10.5 [facility] Comment on above: Performed By: #### C A, IPB, CHM7, MGO, HFP #### [facility] (DEFAULT) [address] [place] [address] Chloride [Moles/Vol] 103 mmol/L Normal 98-108 [facility] Comment on above: Performed By: #### C A, IPB, CHM7, MGO, HFP #### [facility] (DEFAULT) [address] [place] [address] CO2 [Moles/Vol] 28 mmol/L Normal 21-31 [facility] Comment on above: Performed By: #### C A, IPB, CHM7, MGO, HFP #### [facility] (DEFAULT) [address] [place] [address] Creatinine [Mass/Vol] 0.69 mg/dL Normal 0.50-1.20 [facility] Comment on above: Performed By: #### C A, IPB, CHM7, MGO, HFP #### [facility] (DEFAULT) [address] [place] [address]67 eGFR, CKD-EPI, Female > Normal >=60 [facility] Comment on above: Result Comment: Repo rted eGFR is based on the CKD-EPI 2020 equation using creatinine, age, and sex. Performed By: #### C A, IPB, CHM7, MGO, HFP #### [facility] (DEFAULT) [address] [place] [address] Glucose [Mass/Vol] 93 mg/dL Normal 70-99 [facility] Comment on above: Performed By: #### C A, IPB, CHM7, MGO, HFP #### [facility] (DEFAULT) [address] [place] [address] Osmolality [Osmolality] 289 mosm/kg Normal 278-305 [facility] Comment on above: Performed By: #### C A, IPB, CHM7, MGO, HFP #### [facility] (DEFAULT) [address] [place] [address] Potassium [Moles/Vol] 4.2 mmol/L Normal 3.5-5.0 [facility] Comment on above: Performed By: #### C A, IPB, CHM7, MGO, HFP #### [facility] (DEFAULT) [address] [place] [address]463 Protein [Mass/Vol] 7.4 g/dL Normal 6.4-8.3 [facility] Comment on above: Performed By: #### C A, IPB, CHM7, MGO, HFP #### [facility] (DEFAULT) [address] [place] [address] 27514 Sodium [Moles/Vol] 139 mmol/L Normal 135-145 [facility] Comment on above: Performed By: #### C A, IPB, CHM7, MGO, HFP #### [facility] (DEFAULT) [address] [place] [address] 495[address] Urea nitrogen [Mass/Vol] 8 mg/dL Normal 7-25 [facility] Comment on above: Performed By: #### C A, IPB, CHM7, MGO, HFP #### [facility] (DEFAULT) [address] [place] [address] Urea nitrogen/Creatinine [Mass ratio] 12 mg/mg Normal [facility] Comment on above: Performed By: #### C A, IPB, CHM7, MGO, HFP #### [facility] (DEFAULT) [address] [place] [address] 09652 GASTRIN - NON-STIMULATEDon 09-08-2021 Gastrin 21 pg/mL Normal [facility] Comment on above: Result Comment: REFERENCE VALUE <100 Reference ranges valid for >= 8 hour fast. Test Performed by: [place] [address] Tester Wafer Substrate: Ed Russo M.D. Ph.D.; CLIA# [id number] Performed By: #### C Danielle, IPB, CHM7, MGO #### [facility] (DEFAULT) [address] [place] [address] 69885 LACTATE DEHYDROGENASEon 06-19 LD Total 133 U/L Normal 100-190 [facility] Comment on above: Performed By: #### C A, IPB, CHM7, MGO, HFP #### [facility] (DEFAULT) [address] [place] [address] 94014 PANCREATIC POLYPEPTIDEon Pancreatic Polypeptide 94 pg/mL Normal <228 [facility] Comment on above: Result Comment: ADDITIONAL INFORMATION This test was developed and its performance characteristics determined by [facility] in a manner consistent with CLIA requirements. This test has not been cleared or approved by the U.S. Food and Drug Administration. Test Performed by: [facility] [address] [place] [address] Tester Wafer Substrate: Ed Russo M.D. Ph.D.; CLIA# [id number] Performed By: #### C Danielle, RODRIGO, CHM7, MGO #### [facility] (DEFAULT) [address] [place] [address] GI PANEL (PCR)on 06-03-2022 Adenovirus F 40/41 Not detected Normal NOT DETECTED [facility] Comment on above: Performed By: #### P REG #### [facility] [address] [place] [address] Dr. Esthela Stevens Astrovirus Not detected Normal NOT DETECTED [facility] Comment on above: Performed By: #### P REG #### [facility] [address] [place] [address] Dr. Esthela Anderson Diff toxin A/B Detected Critically abnormal NOT DETECTED [facility] Comment on above: Performed By: #### P REG #### [facility] [address] [address] [address] Esthela Stevens Campylobacter Not detected Normal NOT DETECTED [facility] Comment on above: Performed By: #### P REG #### [facility] [address] [address] [address] Esthela Stevens Cryptosporidium Not detected Normal NOT DETECTED [facility] Comment on above: Performed By: #### P REG #### [facility] [address] [address] [address] Esthela Stevens Cyclos. Cayetanensis Not detected Normal NOT DETECTED [facility] Comment on above: Performed By: #### P REG #### [facility] [address] [place] [address] Dr. Esthela Stevens E. Coli O157 Not Applicable Normal Not Applicable [facility] Comment on above: Performed By: #### P REG #### [facility] [address] [place] [address] Dr. Esthela Stevens E. histolytica Not detected Normal NOT DETECTED [facility] Comment on above: Performed By: #### P REG #### [facility] [address] [place] [address] Dr. Esthela Stevens EAEC Not detected Normal NOT DETECTED [facility] Comment on above: Performed By: #### P REG #### [facility] [address] [place] [address] Dr. Esthela Stevens EIEC Not detected Normal NOT DETECTED [facility] Comment on above: Performed By: #### P REG #### [facility] [address] [place] [address] Dr. Esthela Stevens EPEC Not detected Normal NOT DETECTED [facility] Comment on above: Performed By: #### P REG #### [facility] [address] [place] [address] Dr. Esthela Stevens ETEC Not detected Normal NOT DETECTED [facility] Comment on above: Performed By: #### P REG #### [facility] [address] [place] [address] Dr. Esthela Stevens G. Lamblia Not detected Normal NOT DETECTED [facility] Comment on above: Performed By: #### P REG #### [facility] [address] [place] [address] Dr. Esthela MADISONANEL CONTROLS PASSED Normal [facility] Comment on above: Performed By: #### P REG #### [facility] [address] [place] [address] Dr. Esthela MERCADO JON HEADER GI PANEL BACTERIA Normal [facility] Comment on above: Performed By: #### P REG #### [facility] [address] [place] [address] Dr. Esthela MERCADOHD ECOLI GI PANEL DIARRHEAGENIC E.COLI / SHIGELLA Normal [facility] Comment on above: Performed By: #### P REG #### [facility] [address] [address] [address] Esthela LARA INFO SEE BELOW Normal [facility] Comment on above: Result Comment: EAEC - Enteroaggregative E. Coli EPEC- Enteropathogenic E. Coli ETEC- Enterotoxigenic E. Coli lt/st STEC- Shigella-like toxin-producing E. Coli stx1/stx2 EIEC- Shigella/Enteroinvasive E. Coli Performed By: #### P REG #### [facility] [address] [address] [address] Esthela LARA PARASITES GI PANEL PARASITES Normal [facility] Comment on above: Performed By: #### P REG #### [facility] [address] [address] [address] Esthela LARA VIRUS GI PANEL VIRUSES Normal [facility] Comment on above: Performed By: #### P REG #### [facility] [address] [address] [address] Esthela Stevens Norovirus GI/GII Not detected Normal NOT DETECTED [facility] Comment on above: Performed By: #### P REG #### [facility] [address] [address] [address] Esthela Stevens P. Shigelloides Not detected Normal NOT DETECTED [facility] Comment on above: Performed By: #### P REG #### [facility] [address] [address] [address] Esthela Stevens Rotavirus A Not detected Normal NOT DETECTED [facility] Comment on above: Performed By: #### P REG #### [facility] [address] [address] [address] Esthela Stevens Salmonella Not detected Normal NOT DETECTED [facility] Comment on above: Performed By: #### P REG #### [facility] [address] [address] [address] Esthela Stevens Sapovirus Not detected Normal NOT DETECTED [facility] Comment on above: Performed By: #### P REG #### [facility] [address] [place] [address] Dr. Esthela Stevens STEC Not detected Normal NOT DETECTED [facility] Comment on above: Performed By: #### P REG #### [facility] [address] [place] [address] Dr. Esthela Stevens Vibrio Not detected Normal NOT DETECTED [facility] Comment on above: Performed By: #### P REG #### [facility] [address] [place] [address] Dr. Esthela Stevens Vibrio Cholera Not detected Normal NOT DETECTED [facility] Comment on above: Performed By: #### P REG #### [facility] [address] [place] [address] Dr. Esthela Stevens Y. Enterocolitica Not detected Normal NOT DETECTED [facility] Comment on above: Performed By: #### P REG #### [facility] [address] [place] [address] Dr. Esthela Stevens CBC AUTO DIFFon 06-02-2022 BASO # 0.1 103/ul Normal 0.0-0.1 [facility] Comment on above: Performed By: #### L IVER, LDH, BMP #### [facility] [address] [place] [address] Dr. Esthela Stevens Basophils/100 WBC (Bld) 0.6 % Normal 0.2-2.0 [facility] Comment on above: Performed By: #### L IVER, LDH, BMP #### [facility] [address] [place] [address] Dr. Esthela Stevens EO # 0.5 103/ul Normal 0.0-0.7 [facility] Comment on above: Performed By: #### L IVER, LDH, BMP #### [facility] [address] [place] [address] Dr. Esthela Stevens Eosinophils/100 WBC (Bld) 4.3 % Normal 0.9-7.0 [facility] Comment on above: Performed By: #### L IVER, LDH, BMP #### [facility] [address] [place] [address] Dr. Esthela Stevens Erythrocyte distribution width (RBC) [Ratio] 13.0 % Normal 11.0-15.0 [facility] Comment on above: Performed By: #### L IVER, LDH, BMP #### [facility] [address] [place] [address] Dr. Esthela Stevens Hematocrit (Bld) [Volume fraction] 33.6 % Critically low 36.0-48.0 [facility] Comment on above: Performed By: #### L IVER, LDH, BMP #### [facility] [address] [place] [address] Dr. Esthela Stevens Hemoglobin (Bld) [Mass/Vol] 10.9 g/dL Critically low 12.0-16.0 [facility] Comment on above: Performed By: #### L IVER, LDH, BMP #### [facility] [address] [place] [address] Dr. Esthela Stevens IG # 0.05 10e3/ul Critically high 0.00-0.03 [facility] Comment on above: Performed By: #### L IVER, LDH, BMP #### [facility] [address] [place] [address] Dr. Esthela Stevens IG % 0.5 % Normal 0.0-0.5 [facility] Comment on above: Performed By: #### L IVER, LDH, BMP #### [facility] [address] [place] [address] Dr. Esthela Stevens LYMPH # 2.4 103/ul Normal 1.2-3.8 [facility] Comment on above: Performed By: #### L IVER, LDH, BMP #### [facility] [address] [place] [address] Dr. Esthela Stevens Lymphocytes/100 WBC (Bld) 22.4 % Normal 20.5-60.0 [facility] Comment on above: Performed By: #### L IVER, LDH, BMP #### [facility] [address] [place] [address] Dr. Esthela Stevens MANUAL DIFF REQ NO Normal [facility] Comment on above: Performed By: #### L IVER, LDH, BMP #### [facility] [address] [place] [address] Dr. Esthela Stevens MCH (RBC) [Entitic mass] 26.9 pg Normal 26.7-34.0 [facility] Comment on above: Performed By: #### L IVER, LDH, BMP #### [facility] [address] [place] [address] Dr. Esthela Stevens MCHC (RBC) [Mass/Vol] 32.4 g/dL Normal 29.9-35.2 [facility] Comment on above: Performed By: #### L IVER, LDH, BMP #### [facility] [address] [place] [address] Dr. Esthela Stevens MCV (RBC) [Entitic vol] 83.0 fL Normal 81.0-99.0 [facility] Comment on above: Performed By: #### L IVER, LDH, BMP #### [facility] [address] [place] [address] Dr. Esthela Stevens MONO # 0.8 103/ul Normal 0.3-0.8 [facility] Comment on above: Performed By: #### L IVER, LDH, BMP #### [facility] [address] [place] [address] Dr. Esthela Stevens Monocytes/100 WBC (Bld) 7.1 % Normal 1.7-12.0 [facility] Comment on above: Performed By: #### L IVER, LDH, BMP #### [facility] [address] [place] [address] Dr. Esthela Stevens NEUT # 7.0 103/ul Critically high 1.4-6.5 [facility] Comment on above: Performed By: #### L IVER, LDH, BMP #### [facility] [address] [place] [address] Dr. Esthela Stevens Neutrophils/100 WBC (Bld) 65.1 % Normal 43.0-75.0 [facility] Comment on above: Performed By: #### L IVER, LDH, BMP #### [facility] [address] [place] [address] Dr. Esthela Stevens Platelet mean volume (Bld) [Entitic vol] 8.9 fL Critically low 9.5-13.5 [facility] Comment on above: Performed By: #### L IVER, LDH, BMP #### [facility] [address] [address] [address] Esthela Stevens PLT 519 103/ul Critically high 150-450 [facility] Comment on above: Performed By: #### L IVER, LDH, BMP #### [facility] [address] [address] [address] Esthela Stevens RBC 4.05 106/ul Critically low 4.20-5.40 [facility] Comment on above: Performed By: #### L IVER, LDH, BMP #### [facility] [address] [address] [address] Esthela Stevens WBC 10.8 103/ul Normal 4.0-11.0 [facility] Comment on above: Performed By: #### L IVER, LDH, BMP #### [facility] [address] [address] [address] Esthela Stevens PROF 14(COMP METB)on 022 Albumin [Mass/Vol] 3.7 g/dL Normal 3.4-5.0 [facility] Comment on above: Performed By: #### L IVER, LDH, BMP #### [facility] [address] [address] [address] Esthela Stevens Albumin/Globulin [Mass ratio] 1.0 {ratio} Normal [facility] Comment on above: Performed By: #### L IVER, LDH, BMP #### [facility] [address] [address] [address] Esthela Stevens ALP [Catalytic activity/Vol] 75 U/L Normal 46-116 [facility] Comment on above: Performed By: #### L IVER, LDH, BMP #### [facility] [address] [address] [address] Esthela Stevens ALT [Catalytic activity/Vol] 95 U/L Critically high 14-59 [facility] Comment on above: Performed By: #### L IVER, LDH, BMP #### [facility] [address] [address] [address] Esthela Stevens Anion gap [Moles/Vol] 13.4 mmol/L Normal [facility] Comment on above: Performed By: #### L IVER, LDH, BMP #### [facility] [address] [address] [address] Esthela Stevens AST [Catalytic activity/Vol] 31 U/L Normal 15-37 [facility] Comment on above: Performed By: #### L IVER, LDH, BMP #### [facility] [address] [address] [address] Esthela Stevens Bilirubin [Mass/Vol] 0.1 mg/dL Critically low 0.2-1.0 [facility] Comment on above: Performed By: #### L IVER, LDH, BMP #### [facility] [address] [address] [address] Esthela Stevens Calcium [Mass/Vol] 9.3 mg/dL Normal 8.5-10.1 [facility] Comment on above: Performed By: #### L IVER, LDH, BMP #### [facility] [address] [place] [address] Dr. Esthela Stevens Chloride [Moles/Vol] 102 mmol/L Normal 98-107 [facility] Comment on above: Performed By: #### L IVER, LDH, BMP #### [facility] [address] [address] [address] Esthela Stevens CO2 [Moles/Vol] 26.4 mmol/L Normal 21.0-32.0 [facility] Comment on above: Performed By: #### L IVER, LDH, BMP #### [facility] [address] [place] [address] Dr. Esthela Stevens Creatinine [Mass/Vol] 0.67 mg/dL Normal 0.55-1.02 [facility] Comment on above: Performed By: #### L IVER, LDH, BMP #### [facility] [address] [place] [address] Dr. Esthela Stevens EGFR-AF [place]THER[place] >60 Normal >=60 [facility] Comment on above: Performed By: #### L IVER, LDH, BMP #### [facility] [address] [place] [address] Dr. Esthela Stevens EGFR-NON AF [place] >60 Normal >=60 [facility] Comment on above: Performed By: #### L IVER, LDH, BMP #### [facility] [address] [place] [address] Dr. Esthela Stevens Globulin (S) [Mass/Vol] 3.7 g/dL Normal [facility] Comment on above: Performed By: #### L IVER, LDH, BMP #### [facility] [address] [place] [address] Dr. Esthela Stevens Glucose [Mass/Vol] 101 mg/dL Normal 74-106 [facility] Comment on above: Performed By: #### L IVER, LDH, BMP #### [facility] [address] [place] [address] Dr. Esthela Stevens Potassium [Moles/Vol] 3.8 mmol/L Normal 3.5-5.1 [facility] Comment on above: Performed By: #### L IVER, LDH, BMP #### [facility] [address] [place] [address] Dr. Esthela Stevens Protein [Mass/Vol] 7.4 g/dL Normal 6.4-8.2 [facility] Comment on above: Performed By: #### L IVER, LDH, BMP #### [facility] [address] [place] [address] Dr. Esthela Stevens Sodium [Moles/Vol] 138 mmol/L Normal 136-145 [facility] Comment on above: Performed By: #### L IVER, LDH, BMP #### [facility] [address] [place] [address] Dr. Esthela Stevens Urea nitrogen [Mass/Vol] 12.0 mg/dL Normal 7.0-18.0 [facility] Comment on above: Performed By: #### L IVER, LDH, BMP #### [facility] [address] [address] [address] Esthela Stevens Urea nitrogen/Creatinine [Mass ratio] 17.9 mg/mg Normal [facility] Comment on above: Performed By: #### L IVER, LDH, BMP #### [facility] [address] [address] [address] Esthela Stevens CALCIUMon 05-29-2022 Calcium [Mass/Vol] 9.0 mg/dL Normal 8.6-10.5 [facility] Comment on above: Performed By: #### C Danielle, IPB, CHM7, MGO #### [facility] (DEFAULT) [address] [place] [address] Calcium [Mass/Vol] 9.0 mg/dL 8.6 - 10. 5 mg/dL [facility] CBC,PLATELETSon 05-29-2022 Hematocrit (Bld) [Volume fraction] 33.0 % Low 34.9-44.3 [facility] Comment on above: Performed By: #### C Danielle, IPB, CHM7, MGO, HFP #### [facility] (DEFAULT) [address] [place] [address] Hemoglobin (Bld) [Mass/Vol] 10.5 g/dL Low 11.4-15.2 [facility] [facility] Comment on above: Performed By: #### C A, IPB, CHM7, MGO, HFP #### [facility] (DEFAULT) [address] [place] [address] 18880 MCV (RBC) [Entitic vol] 85.1 fL Normal 79.6-97.7 [facility] Comment on above: Performed By: #### Dayday A, IPB, CHM7, MGO, HFP #### [facility] (DEFAULT) [address] [place] [address] 54903 Mean Cell Hgb 27.1 pg Normal 25.9-33.9 [facility] Comment on above: Performed By: #### C A, IPB, CHM7, MGO, HFP #### [facility] (DEFAULT) [address] [place] [address] 17235 Mean Cell Hgb Conc 31.8 g/dL Normal 31.4-35.9 [facility] Comment on above: Performed By: #### C A, IPB, CHM7, MGO, HFP #### [facility] (DEFAULT) [address] [place] [address] 54197 Platelet mean volume (Bld) [Entitic vol] 9.1 fL Normal 8.5-12.2 [facility] Comment on above: Performed By: #### C A, IPB, CHM7, MGO, HFP #### [facility] (DEFAULT) [address] [place] [address] 88569 Platelets (Bld) [#/Vol] 423 10*3/uL High 150-393 [facility] Comment on above: Performed By: #### C A, IPB, CHM7, MGO, HFP #### [facility] (DEFAULT) [address] [place] [address] 61100 RBC (Bld) [#/Vol] 3.88 10*6/uL Low 3.91-5.04 [facility] Comment on above: Performed By: #### C A, IPB, CHM7, MGO, HFP #### [facility] (DEFAULT) [address] [place] [address] 78309 RBC Distribution 13.1 % Normal 10.8-14.9 [facility] Comment on above: Performed By: #### C A, IPB, CHM7, MGO, HFP #### [facility] (DEFAULT) [address] [place] [address] 70273 WBC (Bld) [#/Vol] 7.36 10*3/uL Normal 3.99-11.19 [facility] Comment on above: Performed By: #### C A, IPB, CHM7, MGO, HFP #### [facility] (DEFAULT) [address] [place] [address] 01118 Erythrocyte distribution width (RBC) [Ratio] 13.1 % 10.8 - 14.9 % [facility] Hematocrit (Bld) [Volume fraction] 33.0 % Low 34.9 - 44.3 % [facility] Hemoglobin (Bld) [Mass/Vol] 10.5 g/dL Low 11.4 - 15.2 g/dL [facility] Interpretation and review of laboratory results Abnormal [facility] MCH (RBC) [Entitic mass] 27.1 pg 25.9 - 33.9 pg [facility] MCHC (RBC) [Mass/Vol] 31.8 g/dL 31.4 - 35.9 g/dL [facility] MCV (RBC) [Entitic vol] 85.1 fL 79.6 - 97.7 fL [facility] Platelet mean volume (Bld) [Entitic vol] 9.1 fL 8.5 - 12.2 fL [facility] Platelets (Bld) [#/Vol] 423 10*3/uL High 150 - 393 K/uL [facility] RBC (Bld) [#/Vol] 3.88 10*6/uL Low [facility] WBC (Bld) [#/Vol] 7.36 10*3/uL 3.99 - 11. 19 K/uL [facility] CHEM 7 (LYTES,BUN,CREA,GLUC) on 05-29-2022 Anion gap [Moles/Vol] 13 mmol/L Normal 7-17 [facility] Comment on above: Performed By: #### C A, IPB, CHM7, MGO #### [facility] (DEFAULT) [address] [place] [address] Chloride [Moles/Vol] 104 mmol/L Normal 98-108 [facility] Comment on above: Performed By: #### C A, IPB, CHM7, MGO #### [facility] (DEFAULT) [address] [place] [address] CO2 [Moles/Vol] 26 mmol/L Normal 21-31 [facility] Comment on above: Performed By: #### RODRIGO Rangel, CHM7, MGO #### [facility] (DEFAULT) [address] [place] [address] 15795 Creatinine [Mass/Vol] 0.66 mg/dL Normal 0.50-1.20 [facility] Comment on above: Performed By: #### SHANEKA RangelB, CHM7, MGO #### [facility] (DEFAULT) [address] [place] [address] 60543 eGFR, CKD-EPI, Female > Normal >=60 [facility] Comment on above: Result Comment: Repo rted eGFR is based on the CKD-EPI 2020 equation using creatinine, age, and sex. Performed By: #### RODRIGO Rangel, CHM7, MGO #### [facility] (DEFAULT) [address] [place] [address] 90997 Glucose [Mass/Vol] 93 mg/dL Normal 70-99 [facility] Comment on above: Performed By: #### RODRIGO Rangel, CHM7, MGO #### [facility] (DEFAULT) [address] [place] [address] 09844 Osmolality [Osmolality] 288 mosm/kg Normal 278-305 [facility] Comment on above: Performed By: #### SHANEKA RangelB, CHM7, MGO #### [facility] (DEFAULT) [address] [place] [address] 40701 Potassium [Moles/Vol] 4.2 mmol/L Normal 3.5-5.0 [facility] Comment on above: Performed By: #### SHANEKA RangelB, CHM7, MGO #### [facility] (DEFAULT) [address] [place] [address] 53350 Sodium [Moles/Vol] 139 mmol/L Normal 135-145 [facility] Comment on above: Performed By: #### Dayday Santos IPB, CHM7, MGO #### [facility] (DEFAULT) [address] [place] [address] Urea nitrogen [Mass/Vol] 5 mg/dL Low 7-25 [facility] Comment on above: Performed By: #### C RODRIGO Santos, MELVINM7, MGO #### [facility] (DEFAULT) [address] [place] [address] Urea nitrogen/Creatinine [Mass ratio] 8 mg/mg Normal [facility] Comment on above: Performed By: #### C RODRIGO Santos, MELVINM7, MGO #### [facility] (DEFAULT) [address] [place] [address] Anion gap [Moles/Vol] 13 mmol/L 7 - 17 mmol/L [facility] Chloride [Moles/Vol] 104 mmol/L 98 - 10 8 mmol/L [facility] CO2 [Moles/Vol] 26 mmol/L 21 - 31 mmol/L [facility] Creatinine [Mass/Vol] 0.66 mg/dL 0.50 - 1.20 mg/dL [facility] GFR/1.73 sq M.predicted CKD-EPI (S/P/Bld) [Vol rate/Area] - [facility] Comment on above: Reported eGFR is bas ed on the CKD-EPI 2020 equation using creatinine, age, and sex. Glucose [Mass/Vol] 93 mg/dL 70 - 99 mg/dL [facility] Osmolality Calc [Osmolality] 288 [facility] Potassium [Moles/Vol] 4.2 mmol/L 3.5 - 5.0 mmol/L [facility] Sodium [Moles/Vol] 139 mmol/L 135 - 145 mmol/L [facility] Urea nitrogen [Mass/Vol] 5 mg/dL Low 7 - 25 mg/dL [facility] Urea nitrogen/Creatinine [Mass ratio] 8 mg/mg [facility] MAGNESIUMon 05-29-2022 Magnesium [Mass/Vol] 2.1 mg/dL Normal 1.6-2.6 [facility] Comment on above: Performed By: #### RODRIGO Rangel CHM7, MGO #### [facility] (DEFAULT) [address] [place] [address] 81777 Magnesium [Mass/Vol] 2.1 mg/dL 1.6 - 2 .6 mg/dL [facility] No Panel Informationon 05-29 Interpretation and review of laboratory results Abnormal [facility] Interpretation and review of laboratory results Normal [facility] PHOSPHATE, INORGANICon 05-29 Phosphorous 4.8 mg/dL High 2.2-4.6 [facility] Comment on above: Performed By: #### RODRIGO Rangel CHM7, MGO #### [facility] (DEFAULT) [address] [place] [address] 57608 Phosphate [Mass/Vol] 4.8 mg/dL High 2.2 - 4 .6 mg/dL [facility] CALCIUMon 05-28-2022 Calcium [Mass/Vol] 8.6 mg/dL Normal 8.6-10.5 [facility] Comment on above: Performed By: #### RODRIGO Rangel, HUBERT, MGO #### [facility] (DEFAULT) [address] [place] [address] 24225 Calcium [Mass/Vol] 8.6 mg/dL 8.6 - 10. 5 mg/dL [facility] CBC,PLATELETSon 05-28-2022 Hematocrit (Bld) [Volume fraction] 30.5 % Low 34.9-44.3 [facility] Comment on above: Performed By: #### RODRIGO Rangel, MELVINMRenee, MGO, HFP #### [facility] (DEFAULT) [address] [place] [address] 91748 Hemoglobin (Bld) [Mass/Vol] 9.8 g/dL Low 11.4-15.2 [facility] Comment on above: Performed By: #### RODRIGO Rangel, MELVINMRenee, MGO, HFP #### [facility] (DEFAULT) [address] [place] [address] 04851 MCV (RBC) [Entitic vol] 83.6 fL Normal 79.6-97.7 [facility] Comment on above: Performed By: #### C A, IPB, CHM7, MGO, HFP #### [facility] (DEFAULT) [address] [place] [address] 91667 Mean Cell Hgb 26.8 pg Normal 25.9-33.9 [facility] Comment on above: Performed By: #### C A, IPB, CHM7, MGO, HFP #### [facility] (DEFAULT) [address] [place] [address] 95949 Mean Cell Hgb Conc 32.1 g/dL Normal 31.4-35.9 [facility] Comment on above: Performed By: #### C A, IPB, CHM7, MGO, HFP #### [facility] (DEFAULT) [address] [place] [address] 27683 Platelet mean volume (Bld) [Entitic vol] 9.3 fL Normal 8.5-12.2 [facility] Comment on above: Performed By: #### C A, IPB, CHM7, MGO, HFP #### [facility] (DEFAULT) [address] [place] [address] 35879 Platelets (Bld) [#/Vol] 374 10*3/uL Normal 150-393 [facility] Comment on above: Performed By: #### C A, IPB, CHM7, MGO, HFP #### [facility] (DEFAULT) [address] [place] [address] 59540 RBC (Bld) [#/Vol] 3.65 10*6/uL Low 3.91-5.04 [facility] Comment on above: Performed By: #### C A, IPB, CHM7, MGO, HFP #### [facility] (DEFAULT) [address] [place] [address] 36756 RBC Distribution 13.0 % Normal 10.8-14.9 [facility] Comment on above: Performed By: #### C Danielle, SHANEKAB, CHM7, MGO, HFP #### [facility] (DEFAULT) [address] [place] [address] WBC (Bld) [#/Vol] 6.07 10*3/uL Normal 3.99-11.19 [facility] Comment on above: Performed By: #### RODRIGO Rangel, MELVINMRenee, MGO, HFP #### [facility] (DEFAULT) [address] [place] [address] Erythrocyte distribution width (RBC) [Ratio] 13.0 % 10.8 - 14.9 % [facility] Hematocrit (Bld) [Volume fraction] 30.5 % Low 34.9 - 44.3 % [facility] Hemoglobin (Bld) [Mass/Vol] 9.8 g/dL Low 11.4 - 15.2 g/dL [facility] Interpretation and review of laboratory results Abnormal [facility] MCH (RBC) [Entitic mass] 26.8 pg 25.9 - 33.9 pg [facility] MCHC (RBC) [Mass/Vol] 32.1 g/dL 31.4 - 35.9 g/dL [facility] MCV (RBC) [Entitic vol] 83.6 fL 79.6 - 97.7 fL [facility] Platelet mean volume (Bld) [Entitic vol] 9.3 fL 8.5 - 12.2 fL [facility] Platelets (Bld) [#/Vol] 374 10*3/uL 150 - 393 K/uL [facility] RBC (Bld) [#/Vol] 3.65 10*6/uL Low [facility] WBC (Bld) [#/Vol] 6.07 10*3/uL 3.99 - 11. 19 K/uL [facility] CHEM 7 (LYTES,BUN,CREA,GLUC) on 05-28-2022 Anion gap [Moles/Vol] 11 mmol/L Normal 7-17 [facility] Comment on above: Performed By: #### RODRIGO Rangel, CHM7, MGO #### [facility] (DEFAULT) [address] [place] [address] 19924 Chloride [Moles/Vol] 106 mmol/L Normal 98-108 [facility] Comment on above: Performed By: #### Dayday Santos, IPB, CHM7, MGO #### [facility] (DEFAULT) [address] [place] [address] 47008 CO2 [Moles/Vol] 25 mmol/L Normal 21-31 [facility] Comment on above: Performed By: #### SHANEKA RangelB, CHM7, MGO #### [facility] (DEFAULT) [address] [place] [address] 22317 Creatinine [Mass/Vol] 0.50 mg/dL Normal 0.50-1.20 [facility] Comment on above: Performed By: #### Dayday Santos IPB, CHM7, MGO #### [facility] (DEFAULT) [address] [place] [address] 33596 eGFR, CKD-EPI, Female > Normal >=60 [facility] Comment on above: Result Comment: Repo rted eGFR is based on the CKD-EPI 1 equation using creatinine, age, and sex. Performed By: #### SHANEKA RangelB, CHM7, MGO #### [facility] (DEFAULT) [address] [place] [address] 20684 Glucose [Mass/Vol] 89 mg/dL Normal 70-99 [facility] Comment on above: Performed By: #### Dayday Santos IPB, CHM7, MGO #### [facility] (DEFAULT) [address] [place] [address] 84527 Osmolality [Osmolality] 285 mosm/kg Normal 278-305 [facility] Comment on above: Performed By: #### Dayday Santos, IPB, CHM7, MGO #### [facility] (DEFAULT) [address] [place] [address] 96396 Potassium [Moles/Vol] 4.1 mmol/L Normal 3.5-5.0 [facility] Comment on above: Performed By: #### C Danielle, IPB, CHM7, MGO #### [facility] (DEFAULT) [address] [place] [address] 89778 Sodium [Moles/Vol] 138 mmol/L Normal 135-145 [facility] Comment on above: Performed By: #### Dayday A, IPB, CHM7, MGO #### [facility] (DEFAULT) [address] [place] [address] 91707 Urea nitrogen [Mass/Vol] 3 mg/dL Low 7-25 [facility] Comment on above: Performed By: #### Dayday A, IPB, CHM7, MGO #### [facility] (DEFAULT) [address] [place] [address] 92250 Urea nitrogen/Creatinine [Mass ratio] 6 mg/mg Normal [facility] Comment on above: Performed By: #### Dayday A, IPB, CHM7, MGO #### [facility] (DEFAULT) [address] [place] [address] 20645 Anion gap [Moles/Vol] 11 mmol/L 7 - 17 mmol/L [facility] Chloride [Moles/Vol] 106 mmol/L 98 - 10 8 mmol/L [facility] CO2 [Moles/Vol] 25 mmol/L 21 - 31 mmol/L [facility] Creatinine [Mass/Vol] 0.50 mg/dL 0.50 - 1.20 mg/dL [facility] GFR/1.73 sq M.predicted CKD-EPI (S/P/Bld) [Vol rate/Area] - PINF [facility] Comment on above: Reported eGFR is bas ed on the CKD-EPI 2020 equation using creatinine, age, and sex. Glucose [Mass/Vol] 89 mg/dL 70 - 99 mg/dL [facility] Osmolality Calc [Osmolality] 285 [facility] Potassium [Moles/Vol] 4.1 mmol/L 3.5 - 5.0 mmol/L [facility] Sodium [Moles/Vol] 138 mmol/L 135 - 145 mmol/L [facility] Urea nitrogen [Mass/Vol] 3 mg/dL Low 7 - 25 mg/dL [facility] Urea nitrogen/Creatinine [Mass ratio] 6 mg/mg [facility] MAGNESIUMon 05-28-2022 Magnesium [Mass/Vol] 1.8 mg/dL Normal 1.6-2.6 [facility] Comment on above: Performed By: #### RODRIGO Rangel CHM7, MGO #### [facility] (DEFAULT) [address] [place] [address] 40093 Magnesium [Mass/Vol] 1.8 mg/dL 1.6 - 2 .6 mg/dL [facility] No Panel Informationon 05-28 Interpretation and review of laboratory results Abnormal [facility] Interpretation and review of laboratory results Normal [facility] PHOSPHATE, INORGANICon 05-28 Phosphorous 4.9 mg/dL High 2.2-4.6 [facility] Comment on above: Performed By: #### RODRIGO Rangel CHM7, MGO #### [facility] (DEFAULT) [address] [place] [address] Phosphate [Mass/Vol] 4.9 mg/dL High 2.2 - 4 .6 mg/dL [facility] CALCIUMon 05-27-2022 Calcium [Mass/Vol] 8.6 mg/dL Normal 8.6-10.5 [facility] Comment on above: Performed By: #### RODRIGO Rangel CHM7, MGO #### [facility] (DEFAULT) [address] [place] [address] Calcium [Mass/Vol] 8.6 mg/dL 8.6 - 10. 5 mg/dL [facility] CBC,PLATELETSon 05-27-2022 Hematocrit (Bld) [Volume fraction] 31.1 % Low 34.9-44.3 [facility] Comment on above: Performed By: #### RODRIGO Rangel, MELVINM7, MGO #### [facility] (DEFAULT) [address] [place] [address] 96608 Hemoglobin (Bld) [Mass/Vol] 10.1 g/dL Low 11.4-15.2 [facility] Comment on above: Performed By: #### RODRIGO Rangel, CHM7, MGO #### [facility] (DEFAULT) [address] [place] [address] 69789 MCV (RBC) [Entitic vol] 83.8 fL Normal 79.6-97.7 [facility] Comment on above: Performed By: #### RODRIGO Rangel, CHM7, MGO #### [facility] (DEFAULT) [address] [place] [address] 85000 Mean Cell Hgb 27.2 pg Normal 25.9-33.9 [facility] Comment on above: Performed By: #### RODRIGO Rangel, CHM7, MGO #### [facility] (DEFAULT) [address] [place] [address] 99070 Mean Cell Hgb Conc 32.5 g/dL Normal 31.4-35.9 [facility] Comment on above: Performed By: #### RODRIGO Rangel, CHM7, MGO #### [facility] (DEFAULT) [address] [place] [address] 34006 Platelet mean volume (Bld) [Entitic vol] 9.2 fL Normal 8.5-12.2 [facility] Comment on above: Performed By: #### RODRIGO Rangel, CHM7, MGO #### [facility] (DEFAULT) [address] [place] [address] 87906 Platelets (Bld) [#/Vol] 344 10*3/uL Normal 150-393 [facility] Comment on above: Performed By: #### C A, IPB, CHM7, MGO #### [facility] (DEFAULT) [address] [place] [address] 39331 RBC (Bld) [#/Vol] 3.71 10*6/uL Low 3.91-5.04 [facility] Comment on above: Performed By: #### RODRIGO Rangel, CHM7, MGO #### [facility] (DEFAULT) [address] [place] [address] 54102 RBC Distribution 12.9 % Normal 10.8-14.9 [facility] Comment on above: Performed By: #### RODRIGO Rangel, CHM7, MGO #### [facility] (DEFAULT) [address] [place] [address] 72661 WBC (Bld) [#/Vol] 6.21 10*3/uL Normal 3.99-11.19 [facility] Comment on above: Performed By: #### RODRIGO Rangel, CHM7, MGO #### [facility] (DEFAULT) [address] [place] [address] 72723 Erythrocyte distribution width (RBC) [Ratio] 12.9 % 10.8 - 14.9 % [facility] Hematocrit (Bld) [Volume fraction] 31.1 % Low 34.9 - 44.3 % [facility] Hemoglobin (Bld) [Mass/Vol] 10.1 g/dL Low 11.4 - 15.2 g/dL [facility] Interpretation and review of laboratory results Abnormal [facility] MCH (RBC) [Entitic mass] 27.2 pg 25.9 - 33.9 pg [facility] MCHC (RBC) [Mass/Vol] 32.5 g/dL 31.4 - 35.9 g/dL [facility] MCV (RBC) [Entitic vol] 83.8 fL 79.6 - 97.7 fL [facility] Platelet mean volume (Bld) [Entitic vol] 9.2 fL 8.5 - 12.2 fL [facility] Platelets (Bld) [#/Vol] 344 10*3/uL 150 - 393 K/uL [facility] RBC (Bld) [#/Vol] 3.71 10*6/uL Low [facility] WBC (Bld) [#/Vol] 6.21 10*3/uL 3.99 - 11. 19 K/uL [facility] CHEM 7 (LYTES,BUN,CREA,GLUC) on 05-27-2022 Anion gap [Moles/Vol] 11 mmol/L Normal 7-17 [facility] Comment on above: Performed By: #### C A, IPB, CHM7, MGO #### [facility] (DEFAULT) [address] [place] [address] 42100 Chloride [Moles/Vol] 105 mmol/L Normal 98-108 [facility] Comment on above: Performed By: #### C A, IPB, CHM7, MGO #### [facility] (DEFAULT) [address] [place] [address] 38512 CO2 [Moles/Vol] 26 mmol/L Normal 21-31 [facility] Comment on above: Performed By: #### C A, IPB, CHM7, MGO #### [facility] (DEFAULT) [address] [place] [address] 53969 Creatinine [Mass/Vol] 0.49 mg/dL Low 0.50-1.20 [facility] Comment on above: Performed By: #### C A, IPB, CHM7, MGO #### [facility] (DEFAULT) [address] [place] [address] 66856 eGFR, CKD-EPI, Female > Normal >=60 [facility] Comment on above: Result Comment: Repo rted eGFR is based on the CKD-EPI 2020 equation using creatinine, age, and sex. Performed By: #### C A, IPB, CHM7, MGO #### [facility] (DEFAULT) [address] [place] [address] Glucose [Mass/Vol] 93 mg/dL Normal 70-99 [facility] Comment on above: Performed By: #### Dayday Santos, IPB, CHM7, MGO #### [facility] (DEFAULT) [address] [place] [address] 83796 Osmolality [Osmolality] 285 mosm/kg Normal 278-305 [facility] Comment on above: Performed By: #### Dayday Santos, IPB, CHM7, MGO #### [facility] (DEFAULT) [address] [place] [address] 01528 Potassium [Moles/Vol] 4.0 mmol/L Normal 3.5-5.0 [facility] Comment on above: Performed By: #### Dayday Santos, IPB, CHM7, MGO #### [facility] (DEFAULT) [address] [place] [address] 73231 Sodium [Moles/Vol] 138 mmol/L Normal 135-145 [facility] Comment on above: Performed By: #### Dayday Santos, IPB, CHM7, MGO #### [facility] (DEFAULT) [address] [place] [address] 87140 Urea nitrogen [Mass/Vol] 3 mg/dL Low 7-25 [facility] Comment on above: Performed By: #### Dayday A, IPB, CHM7, MGO #### [facility] (DEFAULT) [address] [place] [address] 01589 Urea nitrogen/Creatinine [Mass ratio] 6 mg/mg Normal [facility] Comment on above: Performed By: #### Dayday A, IPB, CHM7, MGO #### [facility] (DEFAULT) [address] [place] [address] 36955 Anion gap [Moles/Vol] 11 mmol/L 7 - 17 mmol/L [facility] Chloride [Moles/Vol] 105 mmol/L 98 - 10 8 mmol/L [facility] CO2 [Moles/Vol] 26 mmol/L 21 - 31 mmol/L [facility] Creatinine [Mass/Vol] 0.49 mg/dL Low 0.50 - 1.20 mg/dL [facility] GFR/1.73 sq M.predicted CKD-EPI (S/P/Bld) [Vol rate/Area] - [facility] Comment on above: Reported eGFR is bas ed on the CKD-EPI 2020 equation using creatinine, age, and sex. Glucose [Mass/Vol] 93 mg/dL 70 - 99 mg/dL [facility] Interpretation and review of laboratory results Abnormal [facility] Osmolality Calc [Osmolality] 285 [facility] Potassium [Moles/Vol] 4.0 mmol/L 3.5 - 5.0 mmol/L [facility] Sodium [Moles/Vol] 138 mmol/L 135 - 145 mmol/L [facility] Urea nitrogen [Mass/Vol] 3 mg/dL Low 7 - 25 mg/dL [facility] Urea nitrogen/Creatinine [Mass ratio] 6 mg/mg [facility] MAGNESIUMon 05-27-2022 Magnesium [Mass/Vol] 1.9 mg/dL Normal 1.6-2.6 [facility] Comment on above: Performed By: #### C RODRIGO Santos, HUBERT, MGO #### [facility] (DEFAULT) [address] [address] Magnesium [Mass/Vol] 1.9 mg/dL 1.6 - 2 .6 mg/dL [facility] No Panel Informationon 05-27 Interpretation and review of laboratory results Normal [facility] PHOSPHATE, INORGANICon 05-27 Phosphorous 4.5 mg/dL Normal 2.2-4.6 [facility] Comment on above: Performed By: #### RODRIGO Rangel, CHARLIE7, MGO #### [facility] (DEFAULT) [address] [place] [address] 14345 Phosphate [Mass/Vol] 4.5 mg/dL 2.2 - 4 .6 mg/dL [facility] CALCIUMon 05-26-2022 Calcium [Mass/Vol] 8.4 mg/dL Low 8.6-10.5 [facility] Comment on above: Performed By: #### C RODRIGO Santos, CHM7, MGO #### [facility] (DEFAULT) [address] [address] Calcium [Mass/Vol] 8.4 mg/dL Low 8.6 - 10. 5 mg/dL [facility] CBC,PLATELETSon 05-26-2022 Hematocrit (Bld) [Volume fraction] 31.5 % Low 34.9-44.3 [facility] Comment on above: Performed By: #### Y CHGRA #### [facility] (DEFAULT) [address] [place] [address] 96835 Hemoglobin (Bld) [Mass/Vol] 10.0 g/dL Low 11.4-15.2 [facility] Comment on above: Performed By: #### Y CHGRA #### [facility] (DEFAULT) [address] [address] MCV (RBC) [Entitic vol] 84.9 fL Normal 79.6-97.7 [facility] Comment on above: Performed By: #### Y CHGRA #### [facility] (DEFAULT) [address] [address] Mean Cell Hgb 27.0 pg Normal 25.9-33.9 [facility] Comment on above: Performed By: #### Y CHGRA #### [facility] (DEFAULT) [address] [place] [address] 70003 Mean Cell Hgb Conc 31.7 g/dL Normal 31.4-35.9 [facility] Comment on above: Performed By: #### Y CHGRA #### [facility] (DEFAULT) [address] [place] [address] 20087 Platelet mean volume (Bld) [Entitic vol] 9.7 fL Normal 8.5-12.2 [facility] Comment on above: Performed By: #### Y CHGRA #### [facility] (DEFAULT) [address] [place] [address] 51292 Platelets (Bld) [#/Vol] 327 10*3/uL Normal 150-393 [facility] [facility] Comment on above: Performed By: #### Y CHGRA #### [facility] (DEFAULT) [address] [place] [address] 94923 RBC (Bld) [#/Vol] 3.71 10*6/uL Low 3.91-5.04 [facility] Comment on above: Performed By: #### Y CHGRA #### [facility] (DEFAULT) [address] [place] [address] 82400 RBC Distribution 12.8 % Normal 10.8-14.9 [facility] Comment on above: Performed By: #### Y CHGRA #### [facility] (DEFAULT) [address] [place] [address] 36813 WBC (Bld) [#/Vol] 7.91 10*3/uL Normal 3.99-11.19 [facility] Comment on above: Performed By: #### Y CHGRA #### [facility] (DEFAULT) [address] [place] [address] 20173 Erythrocyte distribution width (RBC) [Ratio] 12.8 % 10.8 - 14.9 % [facility] Hematocrit (Bld) [Volume fraction] 31.5 % Low 34.9 - 44.3 % [facility] Hemoglobin (Bld) [Mass/Vol] 10.0 g/dL Low 11.4 - 15.2 g/dL [facility] Interpretation and review of laboratory results Abnormal [facility] MCH (RBC) [Entitic mass] 27.0 pg 25.9 - 33.9 pg [facility] MCHC (RBC) [Mass/Vol] 31.7 g/dL 31.4 - 35.9 g/dL [facility] MCV (RBC) [Entitic vol] 84.9 fL 79.6 - 97.7 fL [facility] Platelet mean volume (Bld) [Entitic vol] 9.7 fL 8.5 - 12.2 fL [facility] Platelets (Bld) [#/Vol] 327 10*3/uL 150 - 393 K/uL [facility] RBC (Bld) [#/Vol] 3.71 10*6/uL Low [facility] WBC (Bld) [#/Vol] 7.91 10*3/uL 3.99 - 11. 19 K/uL [facility] CHEM 7 (LYTES,BUN,CREA,GLUC) on 05-26-2022 Anion gap [Moles/Vol] 13 mmol/L Normal 7-17 [facility] Comment on above: Performed By: #### Y CHGRA #### [facility] (DEFAULT) [address] [place] [address] 31797 Chloride [Moles/Vol] 102 mmol/L Normal 98-108 [facility] Comment on above: Performed By: #### Y CHGRA #### [facility] (DEFAULT) [address] [place] [address] 84836 CO2 [Moles/Vol] 23 mmol/L Normal 21-31 [facility] Comment on above: Performed By: #### Y CHGRA #### [facility] (DEFAULT) [address] [place] [address] 62183 Creatinine [Mass/Vol] 0.48 mg/dL Low 0.50-1.20 [facility] Comment on above: Performed By: #### Y CHGRA #### [facility] (DEFAULT) [address] [place] [address] 93971 eGFR, CKD-EPI, Female > Normal >=60 [facility] Comment on above: Result Comment: Repo rted eGFR is based on the CKD-EPI 2020 equation using creatinine, age, and sex. Performed By: #### Y CHGRA #### [facility] (DEFAULT) [address] [place] [address] 92714 Glucose [Mass/Vol] 154 mg/dL High 70-99 [facility] Comment on above: Performed By: #### Y CHGRA #### [facility] (DEFAULT) [address] [place] [address] 47307 Osmolality [Osmolality] 282 mosm/kg Normal 278-305 [facility] Comment on above: Performed By: #### Y CHGRA #### [facility] (DEFAULT) [address] [place] [address] 43560 Potassium [Moles/Vol] 4.1 mmol/L Normal 3.5-5.0 [facility] Comment on above: Performed By: #### Y CHGRA #### [facility] (DEFAULT) [address] [place] [address] 18451 Sodium [Moles/Vol] 134 mmol/L Low 135-145 [facility] Comment on above: Performed By: #### Y MELVINGRA #### [facility] (DEFAULT) [address] [place] [address] 26586 Urea nitrogen [Mass/Vol] 3 mg/dL Low 7-25 [facility] Comment on above: Performed By: #### Y CHGRA #### [facility] (DEFAULT) [address] [place] [address] 08823 Urea nitrogen/Creatinine [Mass ratio] 6 mg/mg Normal [facility] Comment on above: Performed By: #### Y CHGRA #### [facility] (DEFAULT) [address] [place] [address] 85146 Anion gap [Moles/Vol] 13 mmol/L 7 - 17 mmol/L [facility] Chloride [Moles/Vol] 102 mmol/L 98 - 10 8 mmol/L [facility] CO2 [Moles/Vol] 23 mmol/L 21 - 31 mmol/L [facility] Creatinine [Mass/Vol] 0.48 mg/dL Low 0.50 - 1.20 mg/dL [facility] GFR/1.73 sq M.predicted CKD-EPI (S/P/Bld) [Vol rate/Area] - PINF [facility] Comment on above: Reported eGFR is bas ed on the CKD-EPI 2020 equation using creatinine, age, and sex. Glucose [Mass/Vol] 154 mg/dL High 70 - 99 mg/dL [facility] Osmolality Calc [Osmolality] 282 [facility] Potassium [Moles/Vol] 4.1 mmol/L 3.5 - 5.0 mmol/L [facility] Sodium [Moles/Vol] 134 mmol/L Low 135 - 145 mmol/L [facility] Urea nitrogen [Mass/Vol] 3 mg/dL Low 7 - 25 mg/dL [facility] Urea nitrogen/Creatinine [Mass ratio] 6 mg/mg [facility] MAGNESIUMon 05-26-2022 Magnesium [Mass/Vol] 1.8 mg/dL Normal 1.6-2.6 [facility] Comment on above: Performed By: #### Y CHGRA #### [facility] (DEFAULT) [address] [place] [address] 30866 Magnesium [Mass/Vol] 1.8 mg/dL 1.6 - 2 .6 mg/dL [facility] No Panel Informationon 05-26 Interpretation and review of laboratory results Abnormal [facility] Interpretation and review of laboratory results Normal [facility] PHOSPHATE, INORGANICon 05-26 Phosphorous 3.4 mg/dL Normal 2.2-4.6 [facility] Comment on above: Performed By: #### Y CHGRA #### [facility] (DEFAULT) [address] [address] Phosphate [Mass/Vol] 3.4 mg/dL 2.2 - 4 .6 mg/dL [facility] CALCIUMon 05-25-2022 Calcium [Mass/Vol] 8.5 mg/dL Low 8.6 - 10. 5 mg/dL [facility] Calcium [Mass/Vol] 8.5 mg/dL Low 8.6-10.5 [facility] Comment on above: Performed By: #### Dayday Santos, IPB, CHM7, MGO #### [facility] (DEFAULT) [address] [place] [address] 21322 CBC,PLATELETSon 05-25-2022 Hematocrit (Bld) [Volume fraction] 31.7 % Low 34.9-44.3 [facility] Comment on above: Performed By: #### Dayday Santos, IPB, CHM7, MGO #### [facility] (DEFAULT) [address] [place] [address] 72529 Hemoglobin (Bld) [Mass/Vol] 9.8 g/dL Low 11.4-15.2 [facility] Comment on above: Performed By: #### Dayday Santos, IPB, CHM7, MGO #### [facility] (DEFAULT) [address] [place] [address] 45533 MCV (RBC) [Entitic vol] 85.9 fL Normal 79.6-97.7 [facility] Comment on above: Performed By: #### Dayday Santos, IPB, CHM7, MGO #### [facility] (DEFAULT) [address] [place] [address] 95741 Mean Cell Hgb 26.6 pg Normal 25.9-33.9 [facility] Comment on above: Performed By: #### Dayday A, IPB, CHM7, MGO #### [facility] (DEFAULT) [address] [place] [address] 45469 Mean Cell Hgb Conc 30.9 g/dL Low 31.4-35.9 [facility] Comment on above: Performed By: #### Dayday Santos, IPB, CHM7, MGO #### [facility] (DEFAULT) [address] [place] [address] 60003 Platelet mean volume (Bld) [Entitic vol] 9.7 fL Normal 8.5-12.2 [facility] Comment on above: Performed By: #### Dayday A, IPB, CHM7, MGO #### [facility] (DEFAULT) [address] [place] [address] 01682 Platelets (Bld) [#/Vol] 292 10*3/uL Normal 150-393 [facility] Comment on above: Performed By: #### Dayday Santos, IPB, CHM7, MGO #### [facility] (DEFAULT) [address] [place] [address] 85699 RBC (Bld) [#/Vol] 3.69 10*6/uL Low 3.91-5.04 [facility] Comment on above: Performed By: #### Dayday Santos, IPB, CHM7, MGO #### [facility] (DEFAULT) [address] [place] [address] 97420 RBC Distribution 12.8 % Normal 10.8-14.9 [facility] Comment on above: Performed By: #### Dayday Santos, IPB, CHM7, MGO #### [facility] (DEFAULT) [address] [place] [address] 92488 WBC (Bld) [#/Vol] 9.85 10*3/uL Normal 3.99-11.19 [facility] Comment on above: Performed By: #### Dayday A, IPB, CHM7, MGO #### [facility] (DEFAULT) [address] [place] [address] 63161 Erythrocyte distribution width (RBC) [Ratio] 12.8 % 10.8 - 14.9 % [facility] Hematocrit (Bld) [Volume fraction] 31.7 % Low 34.9 - 44.3 % [facility] Hemoglobin (Bld) [Mass/Vol] 9.8 g/dL Low 11.4 - 15.2 g/dL [facility] Interpretation and review of laboratory results Abnormal [facility] MCH (RBC) [Entitic mass] 26.6 pg 25.9 - 33.9 pg [facility] MCHC (RBC) [Mass/Vol] 30.9 g/dL Low 31.4 - 35.9 g/dL [facility] MCV (RBC) [Entitic vol] 85.9 fL 79.6 - 97.7 fL [facility] Platelet mean volume (Bld) [Entitic vol] 9.7 fL 8.5 - 12.2 fL [facility] Platelets (Bld) [#/Vol] 292 10*3/uL 150 - 393 K/uL [facility] RBC (Bld) [#/Vol] 3.69 10*6/uL Low [facility] WBC (Bld) [#/Vol] 9.85 10*3/uL 3.99 - 11. 19 K/uL [facility] CHEM 7 (LYTES,BUN,CREA,GLUC) on 05-25-2022 Anion gap [Moles/Vol] 13 mmol/L 7 - 17 mmol/L [facility] Chloride [Moles/Vol] 104 mmol/L 98 - 10 8 mmol/L [facility] CO2 [Moles/Vol] 24 mmol/L 21 - 31 mmol/L [facility] Creatinine [Mass/Vol] 0.51 mg/dL 0.50 - 1.20 mg/dL [facility] GFR/1.73 sq M.predicted CKD-EPI (S/P/Bld) [Vol rate/Area] - PINF [facility] Comment on above: Reported eGFR is bas ed on the CKD-EPI 2020 equation using creatinine, age, and sex. Glucose [Mass/Vol] 98 mg/dL 70 - 99 mg/dL [facility] O[facility]olality Cal[facility]olality] [facility] Potassium [Moles/Vol] 4.0 mmol/L 3.5 - 5.0 mmol/L [facility] Sodium [Moles/Vol] 137 mmol/L 135 - 145 mmol/L [facility] Urea nitrogen [Mass/Vol] 2 mg/dL Low 7 - 25 mg/dL [facility] Urea nitrogen/Creatinine [Mass ratio] 4 mg/mg [facility] Anion gap [Moles/Vol] 13 mmol/L Normal 7-17 [facility] Comment on above: Performed By: #### C A, IPB, CHM7, MGO #### [facility] (DEFAULT) [address] [place] [address] 26398 Chloride [Moles/Vol] 104 mmol/L Normal 98-108 [facility] Comment on above: Performed By: #### C A, IPB, CHM7, MGO #### [facility] (DEFAULT) [address] [place] [address] 55866 CO2 [Moles/Vol] 24 mmol/L Normal 21-31 [facility] Comment on above: Performed By: #### C A, IPB, CHM7, MGO #### [facility] (DEFAULT) [address] [place] [address] 12156 Creatinine [Mass/Vol] 0.51 mg/dL Normal 0.50-1.20 [facility] Comment on above: Performed By: #### C A, IPB, CHM7, MGO #### [facility] (DEFAULT) [address] [place] [address] 41399 eGFR, CKD-EPI, Female > Normal >=60 [facility] Comment on above: Result Comment: Repo rted eGFR is based on the CKD-EPI 2020 equation using creatinine, age, and sex. Performed By: #### C A, IPB, CHM7, MGO #### [facility] (DEFAULT) [address] [place] [address] 53486 Glucose [Mass/Vol] 98 mg/dL Normal 70-99 [facility] Comment on above: Performed By: #### C A, IPB, CHM7, MGO #### [facility] (DEFAULT) [address] [place] [address] 23408 Osmolality [Osmolality] 283 mosm/kg Normal 278-305 [facility] Comment on above: Performed By: #### C A, IPB, CHM7, MGO #### [facility] (DEFAULT) [address] [place] [address] 67988 Potassium [Moles/Vol] 4.0 mmol/L Normal 3.5-5.0 [facility] Comment on above: Performed By: #### RODRIGO Rangel, CHM7, MGO #### [facility] (DEFAULT) [address] [place] [address] 35865 Sodium [Moles/Vol] 137 mmol/L Normal 135-145 [facility] Comment on above: Performed By: #### Dayday Santos, IPB, CHM7, MGO #### [facility] (DEFAULT) [address] [place] [address] 38793 Urea nitrogen [Mass/Vol] 2 mg/dL Low 7-25 [facility] Comment on above: Performed By: #### Dayday Santos, SHANEKAB, CHM7, MGO #### [facility] (DEFAULT) [address] [place] [address] 82673 Urea nitrogen/Creatinine [Mass ratio] 4 mg/mg Normal [facility] Comment on above: Performed By: #### Dayday Santos, RODRIGO, CHM7, MGO #### [facility] (DEFAULT) [address] [place] [address] 64829 MAGNESIUMon 05-25-2022 Magnesium [Mass/Vol] 1.8 mg/dL 1.6 - 2 .6 mg/dL [facility] Magnesium [Mass/Vol] 1.8 mg/dL Normal 1.6-2.6 [facility] Comment on above: Performed By: #### Dayday Santos, SHANEKAB, CHM7, MGO #### [facility] (DEFAULT) [address] [place] [address] 61604 No Panel Informationon 05-25 Interpretation and review of laboratory results Abnormal [facility] Interpretation and review of laboratory results Normal [facility] PHOSPHATE, INORGANICon 05-25 Phosphate [Mass/Vol] 3.2 mg/dL 2.2 - 4 .6 mg/dL [facility] Phosphorous 3.2 mg/dL Normal 2.2-4.6 [facility] Comment on above: Performed By: #### RODRIGO Rangel, MELVINMRenee, MGO #### [facility] (DEFAULT) [address] [place] [address] 78794 CALCIUMon 05-24-2022 Calcium [Mass/Vol] 7.9 mg/dL Low 8.6-10.5 [facility] Comment on above: Performed By: #### Dayday Santos, RODRIGO, CHMRenee, MGO, HFP #### [facility] (DEFAULT) [address] [place] [address] 88163 Calcium [Mass/Vol] 7.9 mg/dL Low 8.6 - 10. 5 mg/dL [facility] CBC,PLATELETSon 05-24-2022 Hematocrit (Bld) [Volume fraction] 33.0 % Low 34.9-44.3 [facility] Comment on above: Performed By: #### Y CHGRA #### [facility] (DEFAULT) [address] [place] [address] 64980 Hemoglobin (Bld) [Mass/Vol] 10.4 g/dL Low 11.4-15.2 [facility] Comment on above: Performed By: #### Y CHGRA #### [facility] (DEFAULT) [address] [place] [address] 31834 MCV (RBC) [Entitic vol] 86.2 fL Normal 79.6-97.7 [facility] Comment on above: Performed By: #### Y CHGRA #### [facility] (DEFAULT) [address] [place] [address] 12482 Mean Cell Hgb 27.2 pg Normal 25.9-33.9 [facility] Comment on above: Performed By: #### Y CHGRA #### [facility] (DEFAULT) [address] [place] [address] 16272 Mean Cell Hgb Conc 31.5 g/dL Normal 31.4-35.9 [facility] Comment on above: Performed By: #### Y CHGRA #### [facility] (DEFAULT) [address] [place] [address] 26247 Platelet mean volume (Bld) [Entitic vol] 9.7 fL Normal 8.5-12.2 [facility] Comment on above: Performed By: #### Y CHGRA #### [facility] (DEFAULT) [address] [place] [address] 95433 Platelets (Bld) [#/Vol] 270 10*3/uL Normal 150-393 [facility] Comment on above: Performed By: #### Y CHGRA #### [facility] (DEFAULT) [address] [place] [address] 21589 RBC (Bld) [#/Vol] 3.83 10*6/uL Low 3.91-5.04 [facility] Comment on above: Performed By: #### Y CHGRA #### [facility] (DEFAULT) [address] [place] [address] 18099 RBC Distribution 13.2 % Normal 10.8-14.9 [facility] Comment on above: Performed By: #### Y CHGRA #### [facility] (DEFAULT) [address] [place] [address] 19594 WBC (Bld) [#/Vol] 13.10 10*3/uL High 3.99-11.19 [facility] Comment on above: Performed By: #### Y CHGRA #### [facility] (DEFAULT) [address] [place] [address] 62829 Erythrocyte distribution width (RBC) [Ratio] 13.2 % 10.8 - 14.9 % [facility] Hematocrit (Bld) [Volume fraction] 33.0 % Low 34.9 - 44.3 % [facility] Hemoglobin (Bld) [Mass/Vol] 10.4 g/dL Low 11.4 - 15.2 g/dL [facility] Interpretation and review of laboratory results Abnormal [facility] MCH (RBC) [Entitic mass] 27.2 pg 25.9 - 33.9 pg [facility] MCHC (RBC) [Mass/Vol] 31.5 g/dL 31.4 - 35.9 g/dL [facility] MCV (RBC) [Entitic vol] 86.2 fL 79.6 - 97.7 fL [facility] Platelet mean volume (Bld) [Entitic vol] 9.7 fL 8.5 - 12.2 fL [facility] Platelets (Bld) [#/Vol] 270 10*3/uL 150 - 393 K/uL [facility] RBC (Bld) [#/Vol] 3.83 10*6/uL Low [facility] WBC (Bld) [#/Vol] 13.10 10*3/uL High 3.99 - 11 .19 K/uL [facility] CHEM 7 (LYTES,BUN,CREA,GLUC) on 05-24-2022 Anion gap [Moles/Vol] 10 mmol/L Normal 7-17 [facility] Comment on above: Performed By: #### C A, IPB, CHM7, MGO, HFP #### [facility] (DEFAULT) [address] [place] [address] 72621 Chloride [Moles/Vol] 105 mmol/L Normal 98-108 [facility] Comment on above: Performed By: #### C A, IPB, CHM7, MGO, HFP #### [facility] (DEFAULT) [address] [place] [address] 79568 CO2 [Moles/Vol] 24 mmol/L Normal 21-31 [facility] Comment on above: Performed By: #### C A, IPB, CHM7, MGO, HFP #### [facility] (DEFAULT) [address] [place] [address] 90661 Creatinine [Mass/Vol] 0.51 mg/dL Normal 0.50-1.20 [facility] Comment on above: Performed By: #### C A, IPB, CHM7, MGO, HFP #### [facility] (DEFAULT) [address] [place] [address] 01346 eGFR, CKD-EPI, Female > Normal >=60 [facility] Comment on above: Result Comment: Repo rted eGFR is based on the CKD-EPI 2020 equation using creatinine, age, and sex. Performed By: #### C A, IPB, CHM7, MGO, HFP #### [facility] (DEFAULT) [address] [place] [address] 43609 Glucose [Mass/Vol] 121 mg/dL High 70-99 [facility] Comment on above: Performed By: #### C A, IPB, CHM7, MGO, HFP #### [facility] (DEFAULT) [address] [place] [address] 81144 Osmolality [Osmolality] 281 mosm/kg Normal 278-305 [facility] Comment on above: Performed By: #### C A, IPB, CHM7, MGO, HFP #### [facility] (DEFAULT) [address] [place] [address] 01630 Potassium [Moles/Vol] 4.1 mmol/L Normal 3.5-5.0 [facility] Comment on above: Performed By: #### C A, IPB, CHM7, MGO, HFP #### [facility] (DEFAULT) [address] [place] [address] 89973 Sodium [Moles/Vol] 135 mmol/L Normal 135-145 [facility] Comment on above: Performed By: #### C A, IPB, CHM7, MGO, HFP #### [facility] (DEFAULT) [address] [place] [address] 39179 Urea nitrogen [Mass/Vol] 2 mg/dL Low 7-25 [facility] Comment on above: Performed By: #### C A, IPB, CHM7, MGO, HFP #### [facility] (DEFAULT) [address] [place] [address] 03884 Urea nitrogen/Creatinine [Mass ratio] 4 mg/mg Normal [facility] Comment on above: Performed By: #### RODRIGO Rangel CHM7, SYBIL, PRECIOUS #### [facility] (DEFAULT) [address] [place] [address] Anion gap [Moles/Vol] 10 mmol/L 7 - 17 mmol/L [facility] Chloride [Moles/Vol] 105 mmol/L 98 - 10 8 mmol/L [facility] CO2 [Moles/Vol] 24 mmol/L 21 - 31 mmol/L [facility] Creatinine [Mass/Vol] 0.51 mg/dL 0.50 - 1.20 mg/dL [facility] GFR/1.73 sq M.predicted CKD-EPI (S/P/Bld) [Vol rate/Area] - PINF [facility] Comment on above: Reported eGFR is bas ed on the CKD-EPI 2020 equation using creatinine, age, and sex. Glucose [Mass/Vol] 121 mg/dL High 70 - 99 mg/dL [facility] Osmolality Calc [Osmolality] 281 [facility] Potassium [Moles/Vol] 4.1 mmol/L 3.5 - 5.0 mmol/L [facility] Sodium [Moles/Vol] 135 mmol/L 135 - 145 mmol/L [facility] Urea nitrogen [Mass/Vol] 2 mg/dL Low 7 - 25 mg/dL [facility] Urea nitrogen/Creatinine [Mass ratio] 4 mg/mg [facility] MAGNESIUMon 05-24-2022 Magnesium [Mass/Vol] 1.7 mg/dL Normal 1.6-2.6 [facility] Comment on above: Performed By: #### RODRIGO Rangel CHM7, SYBIL, HFP #### [facility] (DEFAULT) [address] [place] [address] Interpretation and review of laboratory results Normal [facility] Magnesium [Mass/Vol] 1.7 mg/dL 1.6 - 2 .6 mg/dL [facility] No Panel Informationon 05-24 Interpretation and review of laboratory results Abnormal [facility] PHOSPHATE, INORGANICon 05-24 Phosphorous 2.1 mg/dL Low 2.2-4.6 [facility] Comment on above: Performed By: #### C A, IPB, CHM7, MGO, HFP #### [facility] (DEFAULT) [address] [place] [address] 61720 Phosphate [Mass/Vol] 2.1 mg/dL Low 2.2 - 4 .6 mg/dL [facility] CALCIUMon 05-23-2022 Calcium [Mass/Vol] 8.0 mg/dL Low 8.6-10.5 [facility] Comment on above: Performed By: #### C A, IPB, CHM7, MGO #### [facility] (DEFAULT) [address] [place] [address] 20610 Calcium [Mass/Vol] 8.0 mg/dL Low 8.6 - 10. 5 mg/dL [facility] Interpretation and review of laboratory results Abnormal [facility] CBC,PLATELETSon 05-23-2022 Hematocrit (Bld) [Volume fraction] 38.4 % Normal 34.9-44.3 [facility] Comment on above: Performed By: #### Y CHGRA #### [facility] (DEFAULT) [address] [place] [address] 72099 Hemoglobin (Bld) [Mass/Vol] 12.3 g/dL Normal 11.4-15.2 [facility] Comment on above: Performed By: #### Y CHGRA #### [facility] (DEFAULT) [address] [place] [address] 35068 MCV (RBC) [Entitic vol] 83.7 fL Normal 79.6-97.7 [facility] Comment on above: Performed By: #### Y CHGRA #### [facility] (DEFAULT) [address] [place] [address] 14283 Mean Cell Hgb 26.8 pg Normal 25.9-33.9 [facility] Comment on above: Performed By: #### Y CHGRA #### [facility] (DEFAULT) [address] [address] Mean Cell Hgb Conc 32.0 g/dL Normal 31.4-35.9 [facility] Comment on above: Performed By: #### Y CHGRA #### [facility] (DEFAULT) [address] [address] Platelet mean volume (Bld) [Entitic vol] 9.6 fL Normal 8.5-12.2 [facility] Comment on above: Performed By: #### Y CHGRA #### [facility] (DEFAULT) [address] [address] Platelets (Bld) [#/Vol] 354 10*3/uL Normal 150-393 [facility] Comment on above: Performed By: #### Y CHGRA #### [facility] (DEFAULT) [address] [address] RBC (Bld) [#/Vol] 4.59 10*6/uL Normal 3.91-5.04 [facility] Comment on above: Performed By: #### Y CHGRA #### [facility] (DEFAULT) [address] [address] RBC Distribution 13.0 % Normal 10.8-14.9 [facility] Comment on above: Performed By: #### Y CHGRA #### [facility] (DEFAULT) [address] [address] WBC (Bld) [#/Vol] 12.80 10*3/uL High 3.99-11.19 [facility] Comment on above: Performed By: #### Y CHGRA #### [facility] (DEFAULT) [address] [address] Erythrocyte distribution width (RBC) [Ratio] 13.0 % 10.8 - 14.9 % [facility] Hematocrit (Bld) [Volume fraction] 38.4 % 34.9 - 44.3 % [facility] Hemoglobin (Bld) [Mass/Vol] 12.3 g/dL 11.4 - 15.2 g/dL [facility] Interpretation and review of laboratory results Abnormal [facility] MCH (RBC) [Entitic mass] 26.8 pg 25.9 - 33.9 pg [facility] MCHC (RBC) [Mass/Vol] 32.0 g/dL 31.4 - 35.9 g/dL [facility] MCV (RBC) [Entitic vol] 83.7 fL 79.6 - 97.7 fL [facility] Platelet mean volume (Bld) [Entitic vol] 9.6 fL 8.5 - 12.2 fL [facility] Platelets (Bld) [#/Vol] 354 10*3/uL 150 - 393 K/uL [facility] RBC (Bld) [#/Vol] 4.59 10*6/uL [facility] WBC (Bld) [#/Vol] 12.80 10*3/uL High 3.99 - 11 .19 K/uL [facility] CHEM 7 (LYTES,BUN,CREA,GLUC) on 05-23-2022 Anion gap [Moles/Vol] 13 mmol/L Normal 7-17 [facility] Comment on above: Performed By: #### RODRIGO Rangel CHM7, MGO #### [facility] (DEFAULT) [address] [address] Chloride [Moles/Vol] 103 mmol/L Normal 98-108 [facility] Comment on above: Performed By: #### RODRIGO Rangel CHM7, MGO #### [facility] (DEFAULT) [address] [address] CO2 [Moles/Vol] 24 mmol/L Normal 21-31 [facility] Comment on above: Performed By: #### RODRIGO Rangel CHM7, MGO #### [facility] (DEFAULT) [address] [place] [address] Creatinine [Mass/Vol] 0.68 mg/dL Normal 0.50-1.20 [facility] Comment on above: Performed By: #### RODRIGO Rangel CHM7, MGO #### [facility] (DEFAULT) [address] [place] [address] eGFR, CKD-EPI, Female > Normal >=60 [facility] Comment on above: Result Comment: Repo rted eGFR is based on the CKD-EPI 2020 equation using creatinine, age, and sex. Performed By: #### RODRIGO Rangel CHM7, MGO #### [facility] (DEFAULT) [address] [place] [address] Glucose [Mass/Vol] 148 mg/dL High 70-99 [facility] Comment on above: Performed By: #### RODRIGO Rangel CHM7, MGO #### [facility] (DEFAULT) [address] [place] [address] Osmolality [Osmolality] 285 mosm/kg Normal 278-305 [facility] Comment on above: Performed By: #### RODRIGO Rangel, CHM7, MGO #### [facility] (DEFAULT) [address] [place] [address] Potassium [Moles/Vol] 4.9 mmol/L Normal 3.5-5.0 [facility] Comment on above: Performed By: #### RODRIGO Rangel, CHM7, MGO #### [facility] (DEFAULT) [address] [place] [address] Sodium [Moles/Vol] 135 mmol/L Normal 135-145 [facility] Comment on above: Performed By: #### RODRIGO Rangel, CHM7, MGO #### [facility] (DEFAULT) [address] [place] [address] Urea nitrogen [Mass/Vol] 4 mg/dL Low 7-25 [facility] Comment on above: Performed By: #### C Danielle, RODRIGO, CHM7, MGO #### [facility] (DEFAULT) [address] [place] [address] Urea nitrogen/Creatinine [Mass ratio] 6 mg/mg Normal [facility] Comment on above: Performed By: #### C Danielle, IPB, CHM7, MGO #### [facility] (DEFAULT) [address] [place] [address] CHEM 7 (LYTES,BUN,CREA,GLUC) Ordered By: Shraddha Munguia on 05-23-2022 Anion gap [Moles/Vol] 13 mmol/L 7 - 17 mmol/L [facility] Chloride [Moles/Vol] 103 mmol/L 98 - 10 8 mmol/L [facility] CO2 [Moles/Vol] 24 mmol/L 21 - 31 mmol/L [facility] Creatinine [Mass/Vol] 0.68 mg/dL 0.50 - 1.20 mg/dL [facility] GFR/1.73 sq M.predicted CKD-EPI (S/P/Bld) [Vol rate/Area] - [facility] Comment on above: Reported eGFR is bas ed on the CKD-EPI 2020 equation using creatinine, age, and sex. Glucose [Mass/Vol] 148 mg/dL High 70 - 99 mg/dL [facility] Interpretation and review of laboratory results Abnormal [facility] Osmolality Calc [Osmolality] 285 [facility] Potassium [Moles/Vol] 4.9 mmol/L 3.5 - 5.0 mmol/L [facility] Sodium [Moles/Vol] 135 mmol/L 135 - 145 mmol/L [facility] Urea nitrogen [Mass/Vol] 4 mg/dL Low 7 - 25 mg/dL [facility] Urea nitrogen/Creatinine [Mass ratio] 6 mg/mg [facility] MAGNESIUMon 05-23-2022 Magnesium [Mass/Vol] 2.5 mg/dL Normal 1.6-2.6 [facility] Comment on above: Performed By: #### RODRIGO Rangel, HUBERT, MGO #### [facility] (DEFAULT) [address] [place] [address] Magnesium [Mass/Vol] 2.5 mg/dL 1.6 - 2 .6 mg/dL [facility] No Panel Informationon 05-23 Interpretation and review of laboratory results Normal [facility] PHOSPHATE, INORGANICon 05-23 Phosphorous 2.7 mg/dL Normal 2.2-4.6 [facility] Comment on above: Performed By: #### RODRIGO Rangel, HUBERT, MGO #### [facility] (DEFAULT) [address] [place] [address] Phosphate [Mass/Vol] 2.7 mg/dL 2.2 - 4 .6 mg/dL [facility] BETA HCG, URINE (POC DEVICE) on 05-22-2022 Beta HCG ( test) Ql (U) Negative Negative [facility] Interpretation and review of laboratory results Normal [facility] Test performed at address of the patient encounter. [facility] CALCIUMon 05-22-2022 Calcium [Mass/Vol] 7.8 mg/dL Low 8.6-10.5 [facility] Comment on above: Performed By: #### Dayday Santos, RODRIGO, MELVINMRenee, MGO, HFP #### [facility] (DEFAULT) [address] [place] [address] Calcium [Mass/Vol] 7.8 mg/dL Low 8.6 - 10. 5 mg/dL [facility] CBC,PLATELETSon 05-22-2022 Hematocrit (Bld) [Volume fraction] 37.0 % Normal 34.9-44.3 [facility] Comment on above: Performed By: #### Y CHGRA #### [facility] (DEFAULT) [address] [place] [address] Hemoglobin (Bld) [Mass/Vol] 12.0 g/dL Normal 11.4-15.2 [facility] Comment on above: Performed By: #### Y CHGRA #### [facility] (DEFAULT) [address] [place] [address] MCV (RBC) [Entitic vol] 81.0 fL Normal 79.6-97.7 [facility] Comment on above: Performed By: #### Y CHGRA #### [facility] (DEFAULT) [address] [place] [address] Mean Cell Hgb 26.3 pg Normal 25.9-33.9 [facility] Comment on above: Performed By: #### Y CHGRA #### [facility] (DEFAULT) [address] [address] Mean Cell Hgb Conc 32.4 g/dL Normal 31.4-35.9 [facility] Comment on above: Performed By: #### Y CHGRA #### [facility] (DEFAULT) [address] [place] [address] Platelet mean volume (Bld) [Entitic vol] 9.5 fL Normal 8.5-12.2 [facility] Comment on above: Performed By: #### Y CHGRA #### [facility] (DEFAULT) [address] [address] Platelets (Bld) [#/Vol] 350 10*3/uL Normal 150-393 [facility] Comment on above: Performed By: #### Y CHGRA #### [facility] (DEFAULT) [address] [address] RBC (Bld) [#/Vol] 4.57 10*6/uL Normal 3.91-5.04 [facility] Comment on above: Performed By: #### Y CHGRA #### [facility] (DEFAULT) [address] [address] RBC Distribution 12.7 % Normal 10.8-14.9 [facility] Comment on above: Performed By: #### Y CHGRA #### [facility] (DEFAULT) [address] [place] [address] WBC (Bld) [#/Vol] 17.70 10*3/uL High 3.99-11.19 [facility] Comment on above: Performed By: #### Y CHGRA #### [facility] (DEFAULT) [address] [place] [address] Erythrocyte distribution width (RBC) [Ratio] 12.7 % 10.8 - 14.9 % [facility] Hematocrit (Bld) [Volume fraction] 37.0 % 34.9 - 44.3 % [facility] Hemoglobin (Bld) [Mass/Vol] 12.0 g/dL 11.4 - 15.2 g/dL [facility] Interpretation and review of laboratory results Abnormal [facility] MCH (RBC) [Entitic mass] 26.3 pg 25.9 - 33.9 pg [facility] MCHC (RBC) [Mass/Vol] 32.4 g/dL 31.4 - 35.9 g/dL [facility] MCV (RBC) [Entitic vol] 81.0 fL 79.6 - 97.7 fL [facility] Platelet mean volume (Bld) [Entitic vol] 9.5 fL 8.5 - 12.2 fL [facility] Platelets (Bld) [#/Vol] 350 10*3/uL 150 - 393 K/uL [facility] RBC (Bld) [#/Vol] 4.57 10*6/uL [facility] WBC (Bld) [#/Vol] 17.70 10*3/uL High 3.99 - 11 .19 K/uL [facility] CHEM 7 (LYTES,BUN,CREA,GLUC) on 05-22-2022 Anion gap [Moles/Vol] 16 mmol/L Normal -17 [facility] Comment on above: Performed By: #### C Danielle, RODRIGO, MELVINM7, MGO, HFP #### [facility] (DEFAULT) [address] [place] [address] Chloride [Moles/Vol] 103 mmol/L Normal 98-108 [facility] Comment on above: Performed By: #### C A, IPB, CHM7, MGO, HFP #### [facility] (DEFAULT) [address] [place] [address] CO2 [Moles/Vol] 21 mmol/L Normal 21-31 [facility] Comment on above: Performed By: #### C A, IPB, CHM7, MGO, HFP #### [facility] (DEFAULT) [address] [place] [address] Creatinine [Mass/Vol] 0.56 mg/dL Normal 0.50-1.20 [facility] Comment on above: Performed By: #### C A, IPB, CHM7, MGO, HFP #### [facility] (DEFAULT) [address] [place] [address] eGFR, CKD-EPI, Female > Normal >=60 [facility] Comment on above: Result Comment: Repo rted eGFR is based on the CKD-EPI 2020 equation using creatinine, age, and sex. Performed By: #### C A, IPB, CHM7, MGO, HFP #### [facility] (DEFAULT) [address] [place] [address] Glucose [Mass/Vol] 133 mg/dL High 70-99 [facility] Comment on above: Performed By: #### C A, IPB, CHM7, MGO, HFP #### [facility] (DEFAULT) [address] [place] [address] Osmolality [Osmolality] 285 mosm/kg Normal 278-305 [facility] Comment on above: Performed By: #### C A, IPB, CHM7, MGO, HFP #### [facility] (DEFAULT) [address] [place] [address] Potassium [Moles/Vol] 3.9 mmol/L Normal 3.5-5.0 [facility] Comment on above: Performed By: #### C Danielle, IPB, CHM7, MGO, HFP #### [facility] (DEFAULT) [address] [place] [address] Sodium [Moles/Vol] 136 mmol/L Normal 135-145 [facility] Comment on above: Performed By: #### Dayday Santos, IPB, CHM7, MGO, HFP #### [facility] (DEFAULT) [address] [place] [address] Urea nitrogen [Mass/Vol] 6 mg/dL Low 7-25 [facility] Comment on above: Performed By: #### Dayday A, IPB, CHM7, MGO, HFP #### [facility] (DEFAULT) [address] [place] [address] Urea nitrogen/Creatinine [Mass ratio] 11 mg/mg Normal [facility] Comment on above: Performed By: #### C Danielle, IPB, CHM7, MGO, HFP #### [facility] (DEFAULT) [address] [place] [address] Anion gap [Moles/Vol] 16 mmol/L 7 - 17 mmol/L [facility] Chloride [Moles/Vol] 103 mmol/L 98 - 10 8 mmol/L [facility] CO2 [Moles/Vol] 21 mmol/L 21 - 31 mmol/L [facility] Creatinine [Mass/Vol] 0.56 mg/dL 0.50 - 1.20 mg/dL [facility] GFR/1.73 sq M.predicted CKD-EPI (S/P/Bld) [Vol rate/Area] - [facility] Comment on above: Reported eGFR is bas ed on the CKD-EPI 2020 equation using creatinine, age, and sex. Glucose [Mass/Vol] 133 mg/dL High 70 - 99 mg/dL [facility] Osmolality Calc [Osmolality] 285 [facility] Potassium [Moles/Vol] 3.9 mmol/L 3.5 - 5.0 mmol/L [facility] Sodium [Moles/Vol] 136 mmol/L 135 - 145 mmol/L [facility] Urea nitrogen [Mass/Vol] 6 mg/dL Low 7 - 25 mg/dL [facility] Urea nitrogen/Creatinine [Mass ratio] 11 mg/mg [facility] CONTINUOUS CARDIAC MONITORIN G STRIPon 05-22-2022 [facility] CONTINUOUS CARDIAC MONITORIN G STRIPOrdered By: Unassigned Pacs on 05-22-2022 [facility] Work Phone: HEPATIC FUNCTION PANELon Albumin [Mass/Vol] 3.8 g/dL Normal 3.5-5.0 [facility] Comment on above: Performed By: #### Dayday Santos, IPB, CHM7, MGO, HFP #### [facility] (DEFAULT) [address] [place] [address] ALP [Catalytic activity/Vol] 54 U/L Normal 32-126 [facility] Comment on above: Performed By: #### Dayday Santos, IPB, CHM7, MGO, HFP #### [facility] (DEFAULT) [address] [place] [address] ALT [Catalytic activity/Vol] 17 U/L Normal 9-48 [facility] Comment on above: Performed By: #### Dayday Santos, IPB, CHM7, MGO, HFP #### [facility] (DEFAULT) [address] [place] [address] AST [Catalytic activity/Vol] 23 U/L Normal 10-39 [facility] Comment on above: Performed By: #### Dayday Santos, IPB, CHM7, MGO, HFP #### [facility] (DEFAULT) [address] [place] [address] Bilirubin [Mass/Vol] 0.5 mg/dL Normal <1.5 [facility] Comment on above: Performed By: #### Dayday Santos, IPB, CHM7, MGO, HFP #### [facility] (DEFAULT) [address] [place] [address] Bilirubin.indirect [Mass/Vol] 0.2 mg/dL Normal <0.3 [facility] Comment on above: Performed By: #### Dayday Santos, IPB, CHM7, MGO, HFP #### [facility] (DEFAULT) [address] [place] [address] Protein [Mass/Vol] 6.3 g/dL Low 6.4-8.3 [facility] Comment on above: Performed By: #### SHANEKA RangelB, CHM7, MGO, HFP #### [facility] (DEFAULT) [address] [place] [address] Albumin [Mass/Vol] 3.8 g/dL 3.5 - 5.0 g/dL [facility] ALP [Catalytic activity/Vol] 54 U/L 32 - 126 U/L [facility] ALT [Catalytic activity/Vol] 17 U/L 9 - 48 U/L [facility] AST [Catalytic activity/Vol] 23 U/L 10 - 39 U/L [facility] Bilirubin [Mass/Vol] 0.5 mg/dL [facility]/dL [facility] Bilirubin.direct [Mass/Vol] 0.2 mg/dL NINF - 0.3 mg/dL [facility] Protein [Mass/Vol] 6.3 g/dL Low 6.4 - 8.3 g/dL [facility] MAGNESIUMon 05-22-2022 Magnesium [Mass/Vol] 1.4 mg/dL Low 1.6-2.6 [facility] Comment on above: Performed By: #### C Danielle, IPB, CHM7, MGO, HFP #### [facility] (DEFAULT) [address] [place] [address] Magnesium [Mass/Vol] 1.4 mg/dL Low 1.6 - 2 .6 mg/dL [facility] No Panel Informationon 05-22 ABO/RH(D) TYPE Positive [facility] BLOOD COMPONENT TYPE Red Cells, Leukoreduced [facility] EXPIRATION DATE [facility] Product ABO/RH(D) Positive [facility] Product ABO/RH(D) NUMBER [id number] [facility] PRODUCT CODE [id number] [facility] UNIT STATUS released [facility] Interpretation and review of laboratory results Abnormal [facility] PHOSPHATE, INORGANICon 05-22 Phosphorous 3.3 mg/dL Normal 2.2-4.6 [facility] Comment on above: Performed By: #### C A, IPB, CHM7, MGO, HFP #### [facility] (DEFAULT) [address] [place] [address] Interpretation and review of laboratory results Normal [facility] Phosphate [Mass/Vol] 3.3 mg/dL 2.2 - 4 .6 mg/dL [facility] POC ARTERIAL BLOOD GASon Base excess Calc (Bld) [Moles/Vol] -2.1000 mmol/L -3.0 - 3.0 mmol/L [facility] Calcium.ionized (Bld) [Mass/Vol] 4.22 mg/dL Low 4.60 - 5.30 mg/dL [facility] CO2 (Bld) [Partial pressure] 33 mm[Hg] [facility] Glucose [Mass/Vol] 127 mg/dL High 70 - 99 mg/dL [facility] HCO3 (Bld) [Moles/Vol] 22 mmol/L 22 - 28 mmol/L [facility] Hematocrit (Bld) [Volume fraction] 34.5 % 34.2 - 45.6 % [facility] Hemoglobin (Bld) [Mass/Vol] 11.3 g/dL Low 11.4 - 15.2 g/dL [facility] Interpretation and review of laboratory results Abnormal [facility] Lactate [Moles/Vol] 1.2 mmol/L 0.5 - 1. 6 mmol/L [facility] Oxygen (Bld) [Partial pressure] 230 mm[Hg] High [facility] Oxygen saturation in Blood 99 % [facility] pH (Bld) 7.42 [pH] 7.35 - 7.45 [facility] Potassium [Moles/Vol] 3.6 mmol/L 3.5 - 5.0 mmol/L [facility] Sodium [Moles/Vol] 137 mmol/L 135 - 145 mmol/L [facility] Specimen source Nom (Unsp spec) Arterial [facility] Test performed at address of the patient encounter. [facility] Base excess Calc (Bld) [Moles/Vol] 0.0 mmol/L -3.0 - 3.0 mmol/L [facility] Calcium.ionized (Bld) [Mass/Vol] 4.56 mg/dL Low 4.60 - 5.30 mg/dL [facility] CO2 (Bld) [Partial pressure] 38 mm[Hg] [facility] Glucose [Mass/Vol] 138 mg/dL High 70 - 99 mg/dL [facility] HCO3 (Bld) [Moles/Vol] 24 mmol/L 22 - 28 mmol/L [facility] Hematocrit (Bld) [Volume fraction] 34.7 % 34.2 - 45.6 % [facility] Hemoglobin (Bld) [Mass/Vol] 11.3 g/dL Low 11.4 - 15.2 g/dL [facility] Interpretation and review of laboratory results Abnormal [facility] Oxygen (Bld) [Partial pressure] 197 mm[Hg] High [facility] Oxygen saturation in Blood 99 % [facility] pH (Bld) 7.42 [pH] 7.35 - 7.45 [facility] Potassium [Moles/Vol] 3.4 mmol/L Low 3.5 - 5.0 mmol/L [facility] Sodium [Moles/Vol] 138 mmol/L 135 - 145 mmol/L [facility] Specimen source Nom (Unsp spec) Arterial [facility] Test performed at address of the patient encounter. [facility] PREPARE TO TRANSFUSE OR RED BLOOD CELLSon 05-22-2022 UNIT NUMBER [id number] [facility] UNIT NUMBER [id number] [facility] PROTIME-INRon 05-22-2022 INR Coag (PPP) [Relative time] 1.2 {INR} High 0.9-1.1 [facility] Comment on above: Performed By: #### C A, IPB, CHM7, MGO, HFP #### [facility] (DEFAULT) [address] [place] [address] PT Coag (PPP) [Time] 14.8 s High 11.9-14.2 [facility] Comment on above: Performed By: #### C A, IPB, CHM7, MGO, HFP #### [facility] (DEFAULT) [address] [place] [address] INR Coag (Bld) [Relative time] 1.2 {INR} High 0.9 - 1.1 [facility] Interpretation and review of laboratory results Abnormal [facility] PT Coag (PPP) [Time] 14.8 s High [facility] SURG PATH REQUESTon 05-22-20 Case Report Normal [facility] Comment on above: Result Comment: Surg ical Pathology Report Case: [id number] Authorizing Provider: Suman Baker MD, PhD Collected: 05/22/2022 08:31 AM [facility] Received: 05/25/2022 08:10 AM Pathologist: WALI Landry Specimens: A) - SURG PATH, CALCIFORM LIGAMENT B) - SURG PATH, Omentum C) - SURG PATH, Peritoneal implant #1 D) - SURG PATH, Peritoneal implant #2 E) - SURG PATH, TERMINAL ILEUM AND COLON F) - SURG PATH, PERITONEAL IMPLANT #3 G) - SURG PATH, PERITONEAL IMPLANT #4 Performed By: #### C RODRIGO Santos CHM7, MGO #### [facility] (DEFAULT) [address] [place] [address] Clinical History 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 Normal [facility] Comment on above: Performed By: #### C RODRIGO Santos CHM7, MGO #### [facility] (DEFAULT) [address] [place] [address] Gross Description Normal [facility] Comment on above: Result Comment: The specimens are received in seven properly labeled containers with the patient's name and accession number. A. The specimen is designated falciform ligament and consists of a 12.8 x 7.2 x 3 cm portion of pink-yellow lobulated adipose tissue. The peritonealized surface has a filmy adhesion and cut sections are grossly unremarkable. RS 2 Summary of Cassettes: A1, peritonealized surface with adhesion; A2, peritonealized surface and adipose B. The specimen is designated omentum and consists of a 42 x 18 x 2.2 cm sheet of finely lobulated adipose tissue. No tumor is identified. The specimen is serially sectioned revealing yellow lobulated adipose. RS 3 Summary of Cassettes: B1-3, omentum C. The specimen is designated peritoneal implant #1 and consists of three fragments of dickerson-sarmiento soft tissue ranging from 0.3 to 0.5 cm in greatest dimension. TE 1 D. The specimen is designated peritoneal implant #2 and consists of a 0.5 x 0.5 x 0.2 cm aggregate of sarmiento-dickerson soft tissue. TE 1 E. The specimen is designated terminal ileum and colon and consists of a terminal ileum and right colon. The terminal ileum alone is 31 cm in length and 4.4 cm in internal circumference. The serosa is pink-sarmiento with adhesions in the distal 4 cm. The mucosa is sramiento-pink with a normal folding pattern. The mesentery of the terminal ileum contains multiple dark red shaggy lesions measuring up to 0.8 x 0.4 x 0.1 cm. The right colon is 16 cm in length and 8.5 cm in maximum internal circumference. The outer surface is sarmiento-pink with dark pink shaggy adhesions involving the cecum. The peritonealized surface of the cecum is inked black. The radial margin is inked green. The colonic mucosa is sarmiento-pink with a normal folding pattern and no discrete lesions. The colon wall is 0.9 cm in average thickness. There are multiple kike in the cecal pouch through the outer surface of the muscularis propria consistent with previous appendectomy site. No residual tumor is identified. The appendectomy site is 0.2 cm from the black-inked peritonealized surface, 1.8 cm from the radial margin, 2.0 cm from the ileocecal valve and 16 cm from the distal colon margin. Multiple lymph nodes are identified ranging from 0.3 up to 1.1 cm. RS 20 Summary of Cassettes: E1, terminal ileum margin, shave; E2, distal colon margin, shave; E3, terminal ileum, adhesions; E4, terminal ileum mesentery with lesions; E5, terminal ileum; E6, radial margin closest to appendectomy site, perpendicular; E7-11, entire appendectomy site (E7-8 includes peritonealized surface); E12-15, each contains six lymph nodes close to appendectomy site; E16, three bisected lymph nodes close to appendectomy site (nodes differentially inked); E17-19, each contains six lymph nodes distant from appendectomy site; E20, five lymph nodes distant from appendectomy site F. The specimen is designated peritoneal implant #3 and consists of a 5.8 x 1.2 x 0.3 cm portion of sarmiento-pink fibromembranous tissue containing two dark red, shaggy lesions measuring 0.6 and 1.3 cm in greatest dimension. RS 1 Summary of Cassettes: F1, two lesions G. The specimen is designated peritoneal implant #4 and consists of an irregular fragment of pink fibromembranous tissue that is 7.2 x 3.2 x 0.3 cm. There is a pale yellow, firm nodule measuring 0.4 x 0.4 x 0.3 cm. Additionally, there is a sarmiento-red granular lesion measuring 1.4 x 1.4 cm. RS 1 Summary of Cassettes: G1, fibromembranous tissue with nodule and granular lesion Lab Use Only: JobID [id number] Lab Use Only: JobID [id number] (lmp) Grosser for this case was: Pedro Jacobsen For Immediate Release to Patient's MyChart? Yes Performed By: #### C A, IPB, CHM7, MGO #### [facility] (DEFAULT) [address] [place] [address] Microscopic Description A microscopic examination was performed. Normal [facility] Comment on above: Performed By: #### C A, IPB, CHM7, MGO #### [facility] (DEFAULT) [address] [place] [address] Pathologic Diagnosis Normal [facility] Comment on above: Result Comment: A. F alciform ligament, excision: Benign fibroadipose tissue, negative for mucinous neoplasm or neuroendocrine tumor. B. Omentum, omentectomy: Omentum with microscopic foci of acellular mucin, see comment. Negative for neuroendocrine tumor. C. Peritoneal implant #1, excision: Cauterized peritonealized dense fibroadipose tissue with foci of acellular mucin. Negative for neuroendocrine tumor. D. Peritoneal implant #2, excision: Peritonealized dense fibroadipose tissue with foci of acellular mucin and reactive mesothelial proliferation, see comment. Negative for neuroendocrine tumor. E. Terminal ileum and right colon, right hemicolectomy: Cecum with evidence of prior appendectomy site changes, negative for residual neuroendocrine tumor or low-grade appendiceal mucinous neoplasm. Terminal ileum mesentery to foci of acellular mucin with associated reactive mesothelial proliferation. Metastatic neuroendocrine tumor identified in one of fifty regional lymph nodes (1/50). F. Peritoneal implant #3, excision: Peritonealized dense fibroadipose tissue with foci of acellular mucin, chronic inflammation and reactive mesothelial proliferation. Negative for neuroendocrine tumor. G. Peritoneal implant #4, excision: Well-differentiated neuroendocrine tumor, WHO grade 1, 4.5 mm involving the peritonealized fibroadipose tissue, see comment. Peritoneum with foci of acellular mucin and reactive mesothelial proliferation. 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 Peritoneal implants (parts C, D, F and G) and mesenteric deposits in right hemicolectomy (part E) show foci of acellular mucin without identifiable tumor cells. 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 The nodule in the peritoneal implant#4 shows tumor with diffuse expression for cytokeratin AE1/AE3 and Chromogranin supporting the above diagnosis of well-differentiated neuroendocrine tumor. The tumor shows rare cells with Ki67 expression with a proliferative index <1%, consistent with WHO grade 1. In addition one of the regional lymph nodes shows focus of metastatic neuroendocrine tumor. These findings would be consistent with pathology stage pN1/M1b. All controls show appropriate reactivity. All immunohistochemistry, in situ hybridization, and histochemical tests were developed by and are performed at the [facility], [address] [place] [address], [address], [place] [address]. All tests reported here, except those addressing HER2 overexpression as a predictive marker, have not been cleared by or approved by the [place] Food and Drug Administration (FDA). The laboratory is regulated under CLIA as qualified to perform high-complexity testing. The tests are used for clinical purposes. They should not be regarded as investigational or for research. Performed By: #### C Danielle, SHANEKAB, CHM7, MGO #### [facility] (DEFAULT) [address] [place] [id number] TYPE AND SCREENon 05-22-2022 ABO/RH(D) TYPE Positive Normal [facility] Comment on above: Performed By: #### Dayday Santos, IPB, CHM7, MGO #### [facility] (DEFAULT) [address] [place] [id number] ABO/RH(D) TYPE Positive [facility] XR ABDOMEN 1 VIEWon 05-22-20 XR ABDOMEN 1 VIEW EXAM: XR ABDOMEN 1 VIEW, 05/22/2022 14:13 PM COMPARISON: No prior abdominal radiographs available for comparison. CLINICAL INDICATIONS: Confirm NG FINDINGS: The distal tip and side-port of the nasogastric tube are visualized in the proximal to mid stomach. Mild elevation of the right hemidiaphragm is identified. No significant free air is noted or visceromegaly. There are surgical kike likely in the subcutaneous soft tissues to the left of the midline. The bowel gas pattern is nonobstructive. Most of the pelvis was excluded. No acute osseous abnormality is identified. IMPRESSION: Appropriate position of the nasogastric tube in the stomach. Normal [facility] XR Abdomen Single viewon IMPRESSION: Appropriate position of the nasogastric tube in the stomach. OLOGY EXAM: XR ABDOMEN 1 VIEW, 05/22/2022 14:13 PM COMPARISON: No prior abdominal radiographs available for comparison. CLINICAL INDICATIONS: Confirm NG FINDINGS: The distal tip and side-port of the nasogastric tube are visualized in the proximal to mid stomach. Mild elevation of the right hemidiaphragm is identified. No significant free air is noted or visceromegaly. There are surgical kike likely in the subcutaneous soft tissues to the left of the midline. The bowel gas pattern is nonobstructive. Most of the pelvis was excluded. No acute osseous abnormality is identified. RADIOLOGY Debora Burciaga MD - 05/22/2022 EXAM: XR ABDOMEN 1 VIEW, 05/22/2022 14:13 PM COMPARISON: No prior abdominal radiographs available for comparison. CLINICAL INDICATIONS: Confirm NG FINDINGS: The distal tip and side-port of the nasogastric tube are visualized in the proximal to mid stomach. Mild elevation of the right hemidiaphragm is identified. No significant free air is noted or visceromegaly. There are surgical kike likely in the subcutaneous soft tissues to the left of the midline. The bowel gas pattern is nonobstructive. Most of the pelvis was excluded. No acute osseous abnormality is identified. IMPRESSION IMPRESSION: Appropriate position of the nasogastric tube in the stomach. [facility] Radiology Study observation (narrative) [facility] XR Abdomen Single viewOrdere d By: Debora Burciaga on 05-22-2022 [facility] Work Phone: PREG HCG QUALon 04-08-2022 , QUAL Negative Normal NEGATIVE [facility] Comment on above: Performed By: #### P REG #### [facility] [address] [place], [place] [address] Dr. Esthela Stevens Covid-19 PCR ([facility])on 03-19 SARS-CoV-2 (COVID-19) RNA JORGE LUIS+probe Ql (Unsp spec) Not detected Normal NOT DETECTED [facility] Comment on above: Result Comment: This test is not yet approved or cleared by the [place] FDA. When there are no FDA-approved or cleared tests available, and other criteria are met, FDA can make tests available under an emergency access mechanism called an Emergency Use Authorization (EUA). The EUA for this test is supported by the [place] of Health and Human Service's (HHS's) declaration that circumstances exist to justify the emergency use of in vitro diagnostics for the detection and/or diagnosis of the virus that causes COVID-19. This EUA will remain in effect (meaning this test can be used) for the duration of the COVID-19 declaration justifying emergency of IVDs, unless it is terminated or revoked by FDA (after which the test may no longer be used). When diagnostic testing is negative, the possibility of a false negative should be considered in the context of a patient's recent exposures and the presence of clinical signs and symptoms consistent with SARS-CoV-2. Performed By: #### L IVER, LDH, BMP #### [facility] [address] [place], [place] [address] Abdomen and Pelvis W cont rast Jason 04-01-2022 IMPRESSION: No evidence of metastatic disease in the abdomen or pelvis. Avinash Miller M.D. This report has been electronically signed and verified by the Radiologist whose name is printed above. / This report contains privileged and confidential information and is intended solely for the use of the individual or entity to which it is addressed. If you are not the intended recipient of this report, you are hereby notified that any copying, distribution, dissemination or action taken in relation to the contents of this report is strictly prohibited and may be unlawful. If you have received this report in error, please notify the sender immediately at [phone] and permanently delete the original report and destroy any copies or printouts. RADIOLOGY EXAM: CT ABDOMEN/PELVIS WITH CONTRAST COMPARISON: 02/03/2022 CLINICAL INDICATIONS: staging. Laparoscopic appendectomy on 02/03/22 for acute appendicitis with pathology LAMN and well-differentiated neuroendocrine tumor (resection margin positive, +lymphovascular and perineural invasion).? TECHNIQUE: CT scanning was performed through the abdomen and pelvis following the administration of intravenous contrast. PROTOCOL: Standard FINDINGS: LOWER THORAX: Please see today's chest CT report LIVER: Unremarkable. BILIARY: Gallbladder and biliary tree unremarkable. PANCREAS: Unremarkable. SPLEEN: Unremarkable. ADRENAL GLANDS: Unremarkable. KIDNEYS/URETERS: Unremarkable. PELVIC ORGANS/BLADDER: Collapsing follicle right ovary. Left ovary, uterus and urinary bladder unremarkable. GI TRACT: Minimal fecal loading. Interval appendectomy with no appreciable residual mass. Small bowel unremarkable. Minimally distended stomach unremarkable. PERITONEUM: No free air. Minimal pelvic ascites. LYMPH NODES: No enlarged lymph nodes. VESSELS: Unremarkable. BONES AND SOFT TISSUES: Minimal rectus diastasis with small fat-containing umbilical hernia stable. No acute or suspicious osseous lesion. RADIOLOGY Avinash Milelr MD - 04/01/2022 EXAM: CT ABDOMEN/PELVIS WITH CONTRAST COMPARISON: 02/03/2022 CLINICAL INDICATIONS: staging. Laparoscopic appendectomy on 02/03/22 for acute appendicitis with pathology LAMN and well-differentiated neuroendocrine tumor (resection margin positive, +lymphovascular and perineural invasion).? TECHNIQUE: CT scanning was performed through the abdomen and pelvis following the administration of intravenous contrast. PROTOCOL: Standard FINDINGS: LOWER THORAX: Please see today's chest CT report LIVER: Unremarkable. BILIARY: Gallbladder and biliary tree unremarkable. PANCREAS: Unremarkable. SPLEEN: Unremarkable. ADRENAL GLANDS: Unremarkable. KIDNEYS/URETERS: Unremarkable. PELVIC ORGANS/BLADDER: Collapsing follicle right ovary. Left ovary, uterus and urinary bladder unremarkable. GI TRACT: Minimal fecal loading. Interval appendectomy with no appreciable residual mass. Small bowel unremarkable. Minimally distended stomach unremarkable. PERITONEUM: No free air. Minimal pelvic ascites. LYMPH NODES: No enlarged lymph nodes. VESSELS: Unremarkable. BONES AND SOFT TISSUES: Minimal rectus diastasis with small fat-containing umbilical hernia stable. No acute or suspicious osseous lesion. IMPRESSION IMPRESSION: No evidence of metastatic disease in the abdomen or pelvis. Avinash Miller M.D. This report has been electronically signed and verified by the Radiologist whose name is printed above. / This report contains privileged and confidential information and is intended solely for the use of the individual or entity to which it is addressed. If you are not the intended recipient of this report, you are hereby notified that any copying, distribution, dissemination or action taken in relation to the contents of this report is strictly prohibited and may be unlawful. If you have received this report in error, please notify the sender immediately at [phone] and permanently delete the original report and destroy any copies or printouts. [facility] CT Abdomen and Pelvis W cont rast IVOrdered By: Avinash Miller on 04-01-[address] [facility] [address] Chest W contrast Jason IMPRESSION: 1. No evidence for intrathoracic metastatic disease OLOGY EXAM: CT CHEST WITH CONTRAST, 03/31/2022 13:08 PM COMPARISON: No Available Comparisons. CLINICAL INDICATIONS: staging; RELEVANT CLINICAL HISTORY: C7A.8:Primary malignant neuroendocrine tumor of appendix TECHNIQUE: CT images of the chest were obtained following administration of intravenous contrast. CONTRAST: barium sulfate (READI-CAT) 2 % oral susp 900 mL; Route of Administration: Oral; Dose: 900 mL. iodixanol (VISIPAQUE) injection 320 mg/mL for [facility] IR; Route of Administration: Intravenous; Dose: 95 mL. FINDINGS: Lungs and Pleura: Lungs are well-aerated. There is a small subpleural nodule in the left lower lobe, favored to represent a benign intrapulmonary lymph node (series 3, image 197). No additional pulmonary nodules. No consolidation or pleural effusion. Tracheobronchial tree: No abnormality. Mediastinum/Peg: No mediastinal or hilar lymphadenopathy. Axilla and Supraclavicular Region: No axillary or supraclavicular adenopathy. Cardiovascular: The cardiac chambers and pericardium are within normal limits. The aorta and arch branch vessels, as well as the pulmonary arteries, are unremarkable. Upper Abdomen: The upper abdominal contents are unremarkable. Bones and Soft Tissue: No suspicious osseous lesion. RADIOLOGY Yovany Bills MD - 03/31/2022 EXAM: CT CHEST WITH CONTRAST, 03/31/2022 13:08 PM COMPARISON: No Available Comparisons. CLINICAL INDICATIONS: staging; RELEVANT CLINICAL HISTORY: C7A.8:Primary malignant neuroendocrine tumor of appendix TECHNIQUE: CT images of the chest were obtained following administration of intravenous contrast. CONTRAST: barium sulfate (READI-CAT) 2 % oral susp 900 mL; Route of Administration: Oral; Dose: 900 mL. iodixanol (VISIPAQUE) injection 320 mg/mL for [facility] IR; Route of Administration: Intravenous; Dose: 95 mL. FINDINGS: Lungs and Pleura: Lungs are well-aerated. There is a small subpleural nodule in the left lower lobe, favored to represent a benign intrapulmonary lymph node (series 3, image 197). No additional pulmonary nodules. No consolidation or pleural effusion. Tracheobronchial tree: No abnormality. Mediastinum/Peg: No mediastinal or hilar lymphadenopathy. Axilla and Supraclavicular Region: No axillary or supraclavicular adenopathy. Cardiovascular: The cardiac chambers and pericardium are within normal limits. The aorta and arch branch vessels, as well as the pulmonary arteries, are unremarkable. Upper Abdomen: The upper abdominal contents are unremarkable. Bones and Soft Tissue: No suspicious osseous lesion. IMPRESSION IMPRESSION: 1. No evidence for intrathoracic metastatic disease [facility] CT Chest W contrast IVOrdere d By: Yovany Bills on 03-31-2022 [facility] Work Phone: No Panel Informationon 03-31 Radiology Study observation (narrative) [facility] CBC AND ELECTRONIC DIFFon Basophils (Bld) [#/Vol] 0.05 10*3/uL 0.00 - 0.15 K/uL [facility] Basophils/100 WBC (Bld) 0.6 % [facility] Differential cell count method Nom (Bld) Electronic Differential [facility] Eosinophils (Bld) [#/Vol] 0.07 10*3/uL 0.00 - 0.42 K/uL [facility] Eosinophils/100 WBC (Bld) 0.8 % [facility] Erythrocyte distribution width (RBC) [Ratio] 13.4 % 10.8 - 14.9 % [facility] Hematocrit (Bld) [Volume fraction] 37.9 % 34.9 - 44.3 % [facility] Hemoglobin (Bld) [Mass/Vol] 11.9 g/dL 11.4 - 15.2 g/dL [facility] Immature granulocytes (Bld) [#/Vol] 0.04 10*3/uL <=0.08 [facility] Immature granulocytes/100 WBC (Bld) 0.5 % [facility] Interpretation and review of laboratory results Abnormal [facility] Lymphocytes (Bld) [#/Vol] 2.33 10*3/uL 1.16 - 3.51 K/uL [facility] Lymphocytes/100 WBC (Bld) 27.4 % [facility] MCH (RBC) [Entitic mass] 26.3 pg 25.9 - 33.9 pg [facility] MCHC (RBC) [Mass/Vol] 31.4 g/dL 31.4 - 35.9 g/dL [facility] MCV (RBC) [Entitic vol] 83.8 fL 79.6 - 97.7 fL [facility] Monocytes (Bld) [#/Vol] 0.46 10*3/uL 0.22 - 0.87 K/uL [facility] Monocytes/100 WBC (Bld) 5.4 % [facility] Neutrophils (Bld) [#/Vol] 5.55 10*3/uL 1.64 - 7.28 K/uL [facility] Nucleated RBC/100 WBC (Bld) [Ratio] 0.0 % <=0.2 /100 WBC [facility] Platelet mean volume (Bld) [Entitic vol] 10.0 fL 8.5 - 12.2 fL [facility] Platelets (Bld) [#/Vol] 402 10*3/uL High 150 - 393 K/uL [facility] RBC (Bld) [#/Vol] 4.52 10*6/uL [facility] Segmented neutrophils/100 WBC (Bld) 65.3 % [facility] WBC (Bld) [#/Vol] 8.50 10*3/uL 3.99 - 11. 19 K/uL [facility] COMPREHENSIVE METABOLIC PANE Shamir 03-19-2022 Albumin [Mass/Vol] 4.5 g/dL 3.5 - 5.0 g/dL [facility] ALP [Catalytic activity/Vol] 67 U/L 32 - 126 U/L [facility] ALT [Catalytic activity/Vol] 15 U/L 9 - 48 U/L [facility] Anion gap [Moles/Vol] 16 mmol/L 7 - 17 mmol/L [facility] AST [Catalytic activity/Vol] 14 U/L 10 - 39 U/L [facility] Bilirubin [Mass/Vol] 0.4 mg/dL <1.5 [facility] Calcium [Mass/Vol] 9.8 mg/dL 8.6 - 10. 5 mg/dL [facility] Chloride [Moles/Vol] 100 mmol/L 98 - 10 8 mmol/L [facility] CO2 [Moles/Vol] 27 mmol/L 21 - 31 mmol/L [facility] Creatinine [Mass/Vol] 0.66 mg/dL 0.50 - 1.20 mg/dL [facility] GFR/1.73 sq M.predicted CKD-EPI (S/P/Bld) [Vol rate/Area] >90 >=60 mL/min/1.73m2 [facility] Comment on above: Reported eGFR is bas ed on the CKD-EPI 2020 equation using creatinine, age, and sex. Glucose [Mass/Vol] 73 mg/dL 70 - 99 mg/dL [facility] Osmolality Cal[facility]olality] [facility] Potassium [Moles/Vol] 3.6 mmol/L 3.5 - 5.0 mmol/L [facility] Protein [Mass/Vol] 7.4 g/dL 6.4 - 8.3 g/dL [facility] Sodium [Moles/Vol] 139 mmol/L 135 - 145 mmol/L [facility] Urea nitrogen [Mass/Vol] 10 mg/dL 7 - 25 mg/dL [facility] Urea nitrogen/Creatinine [Mass ratio] 15 mg/mg [facility] PT,INR,PTTon 03-19-2022 aPTT Coag (PPP) [Time] 36.5 s [facility] INR Coag (Bld) [Relative time] 1.2 {INR} [facility] Interpretation and review of laboratory results Abnormal [facility] PT Coag (PPP) [Time] 14.6 s [facility] CBC AUTO DIFFon 02-03-2022 BASO # 0.1 103/ul Normal 0.0-0.1 [facility] Comment on above: Performed By: #### L IVER, LDH, BMP #### [facility] [address] [place] [address] Dr. Esthela Stevens Basophils/100 WBC (Bld) 0.5 % Normal 0.2-2.0 [facility] Comment on above: Performed By: #### L IVER, LDH, BMP #### [facility] [address] [place] [address] Dr. Esthela Stevens EO # 0.1 103/ul Normal 0.0-0.7 [facility] Comment on above: Performed By: #### L IVER, LDH, BMP #### [facility] [address] [place] [address] Dr. Esthela Stevens Eosinophils/100 WBC (Bld) 1.2 % Normal 0.9-7.0 [facility] Comment on above: Performed By: #### L IVER, LDH, BMP #### [facility] [address] [place] [address] Dr. Esthela Stevens Erythrocyte distribution width (RBC) [Ratio] 13.2 % Normal 11.0-15.0 [facility] Comment on above: Performed By: #### L IVER, LDH, BMP #### [facility] [address] [place] [address] Dr. Esthela Stevens Hematocrit (Bld) [Volume fraction] 38.4 % Normal 36.0-48.0 [facility] Comment on above: Performed By: #### L IVER, LDH, BMP #### [facility] [address] [place] [address] Dr. Esthela Stevens Hemoglobin (Bld) [Mass/Vol] 12.2 g/dL Normal 12.0-16.0 [facility] Comment on above: Performed By: #### L IVER, LDH, BMP #### [facility] [address] [place] [address] Dr. Esthela Stevens IG # 0.06 10e3/ul Critically high 0.00-0.03 [facility] Comment on above: Performed By: #### L IVER, LDH, BMP #### [facility] [address] [place] [address] Dr. Esthela Stevens IG % 0.6 % Critically high 0.0-0.5 [facility] Comment on above: Performed By: #### L IVER, LDH, BMP #### [facility] [address] [place] [address] Dr. Esthela Stevens LYMPH # 2.1 103/ul Normal 1.2-3.8 [facility] Comment on above: Performed By: #### L IVER, LDH, BMP #### [facility] [address] [place] [address] Dr. Esthela Stevens Lymphocytes/100 WBC (Bld) 21.7 % Normal 20.5-60.0 [facility] Comment on above: Performed By: #### L IVER, LDH, BMP #### [facility] [address] [place] [address] Dr. Esthela Stevens MANUAL DIFF REQ NO Normal [facility] Comment on above: Performed By: #### L IVER, LDH, BMP #### [facility] [address] [place] [address] Dr. Esthela Stevens MCH (RBC) [Entitic mass] 26.5 pg Critically low 26.7-34.0 [facility] Comment on above: Performed By: #### L IVER, LDH, BMP #### [facility] [address] [place] [address] Dr. Esthela Stevens MCHC (RBC) [Mass/Vol] 31.8 g/dL Normal 29.9-35.2 [facility] Comment on above: Performed By: #### L IVER, LDH, BMP #### [facility] [address] [place] [address] Dr. Esthela Stevens MCV (RBC) [Entitic vol] 83.5 fL Normal 81.0-99.0 [facility] Comment on above: Performed By: #### L IVER, LDH, BMP #### [facility] [address] [place] [address] Dr. Esthela Stevens MONO # 0.7 103/ul Normal 0.3-0.8 [facility] Comment on above: Performed By: #### L IVER, LDH, BMP #### [facility] [address] [place] [address] Dr. Esthela Stevens Monocytes/100 WBC (Bld) 7.5 % Normal 1.7-12.0 [facility] Comment on above: Performed By: #### L IVER, LDH, BMP #### [facility] [address] [place] [address] Dr. Esthela Stevens NEUT # 6.8 103/ul Critically high 1.4-6.5 [facility] Comment on above: Performed By: #### L IVER, LDH, BMP #### [facility] [address] [place] [address] Dr. Esthela Stevens Neutrophils/100 WBC (Bld) 68.5 % Normal 43.0-75.0 [facility] Comment on above: Performed By: #### L IVER, LDH, BMP #### [facility] [address] [place] [address] Dr. Esthela Stevens Platelet mean volume (Bld) [Entitic vol] 9.4 fL Critically low 9.5-13.5 [facility] Comment on above: Performed By: #### L IVER, LDH, BMP #### [facility] [address] [place] [address] [address] Esthela Stevens PLT 403 103/ul Normal 150-450 [facility] Comment on above: Performed By: #### L IVER, LDH, BMP #### [facility] [address] [address] [address] Esthela Stevens RBC 4.60 106/ul Normal 4.20-5.40 [facility] Comment on above: Performed By: #### L IVER, LDH, BMP #### [facility] [address] [address] [address] Esthela Stevens WBC 9.9 103/ul Normal 4.0-11.0 [facility] Comment on above: Performed By: #### L IVER, LDH, BMP #### [facility] [address] [address] [address] ABD/PELV W CONon 02-04-20 CT ABD/PELV W CON EXAMINATION: CT ABD/PELV W CON HISTORY: Right sided abdominal pain ; right lower quadrant acute pain COMPARISON: No relevant comparison available. TECHNIQUE: Axial, Coronal, and Sagittal images were created with IV contrast. Dose reduction techniques were achieved by using automated exposure control and/or adjustment of mA and/or kV according to patient size and/or use of iterative reconstruction technique. FINDINGS: LUNG BASES: No visible pulmonary or pleural disease. LIVER: No enlargement, atrophy, suspicious density, or significant focal lesion. BILIARY: No dilatation or calcification. PANCREAS: No lesion, fluid collection, or abnormal duct dilatation. SPLEEN: No enlargement or focal lesion. ADRENALS: No mass or enlargement. KIDNEYS: No mass, obstruction, or calcification. BOWEL/MESENTERY: Area of abnormal density adjacent the cecum suspected to represent inflammatory changes. Suspect 15 mm dilation of a short appendix. AORTA/VASCULAR: No aneurysm or dissection. RETROPERITONEUM: No mass or adenopathy. LYMPH NODES: No adenopathy. URINARY BLADDER: No visible focal wall thickening, lesion, or calculus. PELVIC ORGANS: 2.9 cm cyst suspected within left ovary. ABDOMINAL WALL: No mass or hernia. BONES: No bony lesion or fracture. OTHER: Negative. IMPRESSION: 1. Suspect acute appendicitis with mild adjacent inflammatory changes. Correlate with clinical symptoms. 2. Suspect enlarged left ovarian cyst, 2.9 cm; of uncertain clinical significance. Electronically authenticated by: CAROLYN WALSH Date: 2022-02-03 12:14 Normal [facility] Covid-19 PCR ([facility])on 01-16 SARS-CoV-2 (COVID-19) RNA JORGE LUIS+probe Ql (Unsp spec) Not detected Normal NOT DETECTED [facility] Comment on above: Result Comment: When diagnostic testing is negative, the possibility of a false negative should be considered in the context of a patient's recent exposures and the presence of clinical signs and symptoms consistent with SARS-CoV-2. This test is not yet approved or cleared by the [place] FDA. When there are no FDA-approved or cleared tests available, and other criteria are met, FDA can make tests available under an emergency access mechanism called an Emergency Use Authorization (EUA). The EUA for this test is supported by the [place]arf Worker of Health and Human Service's declaration that circumstances exist to justify the emergency use of in vitro diagnostics for the detection and/or diagnosis of the virus that causes COVID-19. This EUA will remain in effect for the duration of the COVID-19 declaration justifying emergency of IVDs, unless it is terminated or revoked by the FDA (after which the test may no longer be used). Performed By: #### L IVER, LDH, BMP #### [facility] [address] [place] [address] Dr. Esthela Stevens ER URINE PROFILEon 2 Bilirubin Ql (U) Negative Normal NEGATIVE [facility] Comment on above: Performed By: #### MAKENZIE WALLACE #### [facility] [address] [place] [address] Dr. Esthela Stevens Clarity (U) CLEAR Normal CLEAR [facility] Comment on above: Performed By: #### E MAKENZIE SANCHEZ #### [facility] [address] [place] [address] Dr. Esthela Stevens Color (U) LT. YELLOW Normal YELLOW [facility] Comment on above: Performed By: #### Toñito SANCHEZ UMICRO #### [facility] [address] [place] [address] Dr. Esthela ARGUELLES A micrscopic examination will be performed if indicated. Normal [facility] Comment on above: Performed By: #### E LAURA UMICRO #### [facility] [address] [place] [address] Dr. Esthela Stevens Glucose Ql (U) Negative Normal NEGATIVE [facility] Comment on above: Performed By: #### Toñito SANCHEZ UMICRO #### [facility] [address] [place] [address] Dr. Esthela Stevens Hemoglobin Ql (U) Negative Normal NEGATIVE [facility] Comment on above: Performed By: #### Toñito SANCHEZ UMICRO #### [facility] [address] [place] [address] Dr. Esthela Stevens Ketones Ql (U) Negative Normal NEGATIVE [facility] Comment on above: Performed By: #### Toñito SANCHEZ UMICRO #### [facility] [address] [place] [address] Dr. Esthela Stevens LEUKOCYTES SMALL Abnormal NEGATIVE [facility] Comment on above: Performed By: #### Toñito SANCHEZ UMICRO #### [facility] [address] [place] [address] Dr. Esthela Stevens Nitrite Ql (U) Negative Normal NEGATIVE [facility] Comment on above: Performed By: #### Toñito SANCHEZ, UMICRO #### [facility] [address] [place] [address] Dr. Esthela Stevens pH (U) 7.0 [pH] Normal 5-9 [facility] Comment on above: Performed By: #### E LAURA, UMICRO #### [facility] [address] [place] [address] Dr. Esthela Stevens SPEC GRAVITY 1.015 Normal 1.005-<=1.025 [facility] Comment on above: Performed By: #### E RUR, UMICRO #### [facility] [address] [place] [address] Dr. Esthela Stevens UA PROTEIN Negative Normal NEGATIVE/ TRACE [facility] Comment on above: Performed By: #### E LAURA UMICRO #### [facility] [address] [place] [address] Dr. Esthela Stevens UR MICRO IND INDICATED Normal [facility] Comment on above: Performed By: #### E MERISSA SANCHEZICRO #### [facility] [address] [place] [address] Dr. Esthela Stevens Urobilinogen Qn (U) 0.2 {Emeka'U}/dL Normal 0.2 - 1. 0 [facility] Comment on above: Performed By: #### E ERUM SANCHEZRO #### [facility] [address] [place] [address] Dr. Esthela Stevens LACTATE/LACTIC ACIDon 2021 Lactate [Moles/Vol] 1.3 mmol/L Normal 0.4-1.9 [facility] Comment on above: Performed By: #### P REG #### [facility] [address] [place] [address] Dr. Esthela Stevens LIPASEon 02-03-2022 Lipase [Catalytic activity/Vol] 58.0 U/L Critically low 73.0-393.0 [facility] Comment on above: Performed By: #### L IPA, CMP #### [facility] [address] [place] [address] Dr. Esthela Stevens PREG HCG QUALon 02-03-2022 , QUAL Negative Normal NEGATIVE [facility] Comment on above: Performed By: #### L IVER, LDH, BMP #### [facility] [address] [place] [address] Dr. Esthela Stevens PROF 14(COMP METB)on 022 Albumin [Mass/Vol] 3.8 g/dL Normal 3.4-5.0 [facility] Comment on above: Performed By: #### L IPA, CMP #### [facility] [address] [place] [address] Dr. Esthela Stevens Albumin/Globulin [Mass ratio] 1.0 {ratio} Normal [facility] Comment on above: Performed By: #### L IPA, CMP #### [facility] [address] [place] [address] Dr. Esthela Stevens ALP [Catalytic activity/Vol] 75 U/L Normal 46-116 [facility] Comment on above: Performed By: #### L IPA, CMP #### [facility] [address] [place] [address] Dr. Esthela Stevens ALT [Catalytic activity/Vol] 37 U/L Normal 14-59 [facility] Comment on above: Performed By: #### L IPA, CMP #### [facility] [address] [place] [address] Dr. Esthela Stevens Anion gap [Moles/Vol] 14.0 mmol/L Normal [facility] Comment on above: Performed By: #### L IPA, CMP #### [facility] [address] [place] [address] Dr. Esthela Stevens AST [Catalytic activity/Vol] 14 U/L Critically low 15-37 [facility] Comment on above: Performed By: #### L IPA, CMP #### [facility] [address] [place] [address] Dr. Esthela Stevens Bilirubin [Mass/Vol] 0.2 mg/dL Normal 0.2-1.0 [facility] Comment on above: Performed By: #### L IPA, CMP #### [facility] [address] [place] [address] Dr. Esthela Stevens Calcium [Mass/Vol] 8.9 mg/dL Normal 8.5-10.1 [facility] Comment on above: Performed By: #### L IPA, CMP #### [facility] [address] [place] [address] Dr. Esthela Stevens Chloride [Moles/Vol] 103 mmol/L Normal 98-107 [facility] Comment on above: Performed By: #### L IPA, CMP #### [facility] [address] [place] [address] Dr. Esthela Stevens CO2 [Moles/Vol] 25.2 mmol/L Normal 21.0-32.0 [facility] Comment on above: Performed By: #### L IPA, CMP #### [facility] [address] [place] [address] Dr. Esthela Stevens Creatinine [Mass/Vol] 0.72 mg/dL Normal 0.55-1.02 [facility] Comment on above: Performed By: #### L IPA, CMP #### [facility] [address] [place] [address] Dr. Esthela Stevens EGFR-AF [place]THER[place]ISH >60 Normal >=60 [facility] Comment on above: Performed By: #### L IPA, CMP #### [facility] [address] [place] [address] Dr. Esthela Stevens EGFR-NON AF [place] >60 Normal >=60 [facility] Comment on above: Performed By: #### L IPA, CMP #### [facility] [address] [place] [address] Dr. Esthela Stevens Globulin (S) [Mass/Vol] 3.7 g/dL Normal [facility] Comment on above: Performed By: #### L IPA, CMP #### [facility] [address] [place] [address] Dr. Esthela Stevens Glucose [Mass/Vol] 101 mg/dL Normal 74-106 [facility] Comment on above: Performed By: #### L IPA, CMP #### [facility] [address] [place] [address] Dr. Esthela Stevens Potassium [Moles/Vol] 4.2 mmol/L Normal 3.5-5.1 [facility] Comment on above: Performed By: #### L IPA, CMP #### [facility] [address] [place] [address] Dr. Esthela Stevens Protein [Mass/Vol] 7.5 g/dL Normal 6.4-8.2 [facility] Comment on above: Performed By: #### L IPA, CMP #### [facility] [address] [place] [address] Dr. Esthela Stevens Sodium [Moles/Vol] 138 mmol/L Normal 136-145 [facility] Comment on above: Performed By: #### L IPA, CMP #### [facility] [address] [place] [address] Dr. Esthela Stevens Urea nitrogen [Mass/Vol] 11.0 mg/dL Normal 7.0-18.0 [facility] Comment on above: Performed By: #### L IPA, CMP #### [facility] [address] [place] [address] Dr. Esthela Stevens Urea nitrogen/Creatinine [Mass ratio] 15.3 mg/mg Normal [facility] Comment on above: Performed By: #### L IPA, CMP #### [facility] [address] [place] [address] Dr. Esthela Stevens URINE MICROSCOPIC ONLYon BACTERIA NONE SEEN Normal NONE SEEN [facility] Comment on above: Performed By: #### E RUR, UMICRO #### [facility] [address] [place] [address] Dr. Esthela Stevens Bacteria identified Cx Nom (U) NOT INDICATED Normal [facility] Comment on above: Performed By: #### E RUR, UMICRO #### [facility] [address] [place] [address] Dr. Esthela Stevens CAST NONE SEEN Normal NONE SEEN [facility] Comment on above: Performed By: #### E RUR, UMICRO #### [facility] [address] [place] [address] Dr. Esthela Stevens Crystals LM Nom (Urine sed) NONE SEEN Normal NONE SEEN [facility] Comment on above: Performed By: #### E RUR, UMICRO #### [facility] [address] [place] [address] Dr. Esthela Stevens Epithelial cells LM Ql (Urine sed) FEW Abnormal NONE SEEN /RARE [facility] Comment on above: Performed By: #### E RUR, UMICRO #### [facility] [address] [place] [address] Dr. Esthela Stevens MUCOUS NONE SEEN Normal NONE SEEN [facility] Comment on above: Performed By: #### MAKENZIE WALLACE #### [facility] [address] [address] [address] Esthela Stevens RBC 0-2 Normal 0-2 [facility] Comment on above: Performed By: #### ERUM WALLACERO #### [facility] [address] [address] [address] Esthela Stevens WBC 2-5 Abnormal NONE SEEN [facility] Comment on above: Performed By: #### E ERUM SANCHEZRO #### [facility] [address] [address] [address] Esthela Stevens Test, Urineon Beta HCG ( test) Ql (U) Negative SEAT 4a Other Urinalysis - AUTOMATEDon Appearance (U) clear [employer] Other Bilirubin Ql (U) Negative [employer] Other Color (U) yellow SEAT 4a Other Glucose Ql (U) Negative [employer] Other Hemoglobin Ql (U) Negative [place] Other Ketones Ql (U) 15 OLSET Other Leukocyte esterase Test strip Ql (U) Negative SEAT 4a Other Nitrite Ql (U) Negative [employer] Other pH (U) 7.0 [pH] SEAT 4a Other Protein Ql (U) Negative [employer] Other Specific gravity (U) [Rel density] 1.020 SEAT 4a Other Urobilinogen (U) [Mass/Vol] 0.2 mg/dL SEAT 4a Other Urinalysis - AUTOMATED SEAT 4a Other Urine Cultureon 12-22-2021 Bacteria identified Cx Nom (U) >100,000 colonies/ml mixed bacterial skin contaminants 2 Days PERFORMED BY: [address] [address] PATHOLOGIST [employer]OX OPERATOR FELY STODDARD M.D. Normal [facility] Comment on above: Performed By: #### C UU #### [address] Coding Summary.on 02-18-2021 Coding Summary. [id number] Gh0bWw+PGhlYWQ+PE1FV SAyW04fjQRdbH9BW4nZA N8ZBXQTLGJCBE6WVQ2ua GH4DUqnQ6BanwLo JawshHKkDO61NHm5RLS3 hKchGDvkvH3wqZOpZ3x0 LlKkAY07eX74QVmyKUPw ZsZ2OfBprgaesOFc Q4hiBqZmyYLmDty+PHRh YmxlIHdpZHRoPScxMDAl KeFuuIpkGW7lSz2iJYAj LWNvbGxhcHNlOiBj s0naFSAoAXvoCQ0riXfs L4CuiKY0OSWdh9l1Al46 dHI+GSKqJBE8rMyhNFil o973ZwQwj1kaYBX0 eMMzUOheBZX5P38fw2D4 NXAqGJVcIWN3lQN5kM5d tUeqmurbX6UyzVPnTqD3 ACB2gESmgT7kfOiv luqxkU3aSby+F88BWT2C JQEGRL1OHfs3D2PjTynt dHI+QW42YGApTT75cNVh eKFfj4obyWd5ScJs TVWcLEZ9nSzaSMnrg8Hq ONGwY36boXHjq0L1EBDy xRibpHMjOiYbfUO4oM8b NGcdzwksf4rgpreu Cltgm0bnco29sK37F89q LOaiVKWvXXH9UYIdLCDc fTekev4tqF0zUf4+IDxj k9moj9kyyAq6JjDh ZMSubaYvwYfkDML5n1Sz Je45C0MozBxkv8OhEqt4 ht25iUFqe6E1cVD2NShw TVXvlX1mJQibLvL2 FXTkHgIweN06vPCqEZwb Oa8cbBwvdMmnYK5uKYHe ytkpBICqwN8pJEOvrLEb yTkmMT3lXGZahqwz p666FrPqTOS5HYKpkXSi E8AubS8nHmNeXOGgEWLx Q0YnpEJyCPztW068ZYsa TrV7JLAgdnCqD4Ht JZJvzHtoZdY8l8E0Ps9U e3FkeycnEDX6IQyePWM6 ReYsAxCzSzW4G5AqJcx2 NKOyzHdyXI9oN7Ra LFTialjtlmxxyEZ3HHTf PTRgjE84vCLrKJpvCo3f b9H9c160TNJsGXQiqB23 Tq6nrFmtMZZjfUER rB8rgbfry2sdcbjbLbKq AQFoKJh7GWq6GCHzqWim RhRrABS3LyT5HKD9yBYv oT6niTltmrxkuX1y Oyc+O87fuN3oSYR7ZXE6 xqdrGWMgazItWE69EU64 R4QvOylhbLLxgHI+PGRp ncSluZxzZR9kOjOm g2pmm4SkNOluX4WvWPZi UVcwBfc1RBCbLMP7mWO7 nL8wOVSbFLsgg8N4nWA1 B1EwluFzqi4do7gd DPMoYMamR73loSWcg8O9 ODVbbPB6MJKhmOrfBeWh xI10Ikb+YOSviDwqw4My Wemyy9pyy1nypNe6 IjMwJSIgdmFsaWduPSJ0 r9IsMn31W85vIBfwBFOr BYBfTPVnKYRseFknlz8x yX6xRv5+PGNvbCB3 fQV5pT5wXXCmZjW4UEob X912HsFazVRyLcgbi2jd k2fzgJb4KzBqAJIkbeUg jNxjTVW6j6EfTz85 S48vHSdbSTCkUBDsGRGx ASQexEjwzu6xdR2zZq6+ QZ8yl3gjnh91wP98dXF+ WFTzCAH2bLtiHPuz NIBmwX2kGCxhLjJ2KZBx NxVkkF45zJLtOUxxNv6j cFgxkTakPH5lDCRsuxwy q119SnExu8fsDPEa mAZxNFzuGKU8B12gv4Q2 KJQlAQGqSCJ4dAI7dH3i bGlnbjogbGVmdDsgdmVy nFirZBjkKSyyY435 IHRvcDsnPlBhdGllbnQg KzBtJTo8A9PyRfm4NTKa aMrzNE9feIJoUVcjQz2r nOoonGviHP2rXMEt ptyuw369MkCat7sdTQIg gXMvXLbsTYA6Y66ns8H3 SBSpMOIdJJR2dMR2cM3x bGlnbjogbGVmdDsg pqSxxBweENzpKOdoA281 IHRvcDsnPkJpcnRoIERh dTC1QW44RN94uOXcd5I2 sAE0N2PcLTRxdhsu zpiibQC9QYSdWPAquF81 Al2gfCblSn9qYFBuLYR8 NPOtdJOyD0RbqP2jOxKw DTPwVQZmH8LzpWSy FHijA701HYghYeH6OMMd cgZfB2RlNOGsnQbeZfC8 k5J6Nr5BO3F9MT16XB95 lKZnu3I5xGR2M2Yl FZIamzoaymvskXB1YGDg DYZsxS02Hr7uaEoxAp0y QQGjUNM5NZMceHZdD6Oj mX8iEhNmNEJrSWSx N4DccEEiURmiC842PSjd LnW0NOSubzFwI7CjULBo iBojRnA8k7I9Fb8BRGd7 DS82ZL47sKQti5V1 iWU8Y0GbQRUahhziekog zLN9YUXwTOAynO71Ku1t tXcjVv2qMMRhRLL2FQDa iBEpY6VkwU6lPnDr IXNlSKXaO8ZgjMBoHLqg O252VRfhJjY5NHSzmwVo Q6UtYLXtzHvuOeS3j1P0 Xg8AAETpCI04OTR5 zST4UF72SV43V2NuDyoo dGFibGU+PHRhYmxlIHdp ZHRoPScxMDAlJyBzdHls GP4jAc2xJTQdSQWs jNozrMKjPwWja5anJRAo PKekTN2ktUctT5TylAG7 KUAjh9y5Zm01F44pO2Zb dXA+YAWybQM9dXG7 lI4jUpObFmF2KRdqA810 LlDnnSUyLabbf5njl9uo iXf3TbX2MAVjupDvtFqu DNB1a7ZcYd45V95f IHdpZHRoPSIxNSUiIHZh rBcmzr0atX0aGz9+PGNv rAB3uIC0vU9dIrSwRcH1 GBcjQ861BbDuqYMy Eyaaf7ucz3dggGt4GlYt ZPJifoEziKoxQCA4t0Ye Cc77X3OtzQzmm4PkWad7 im77mCEge0K0rGQ0 B3MpKAQhjximzVSkaEfn SN5fGVJhwkciTBVhnY7j SAFpY3k9KpKiPoN2BHec C9IeooC8ZJQyeAVj GUfgXDB6Z05ad2X7IWQl PCTcVJN1hHZ2cG4qnRoq bjogbGVmdDsgdmVydGlj PQaeRYqlK444NHTw fLexMNFljI2pLLPsyLGe tPfrQL4dDVBdihgvYycV GClREzeoP6SODBSPHYu8 R4MqPep4MYSxjQgk YU5pqFJyITjmNi2mnWmz iPgcJB9mDPAnxmkuSFBi gM6jFEDpbXOijGksDQ1s HZJususfi176CiJh IFZ1OKWadJGyO0DrnJ6r JfVySNMmGRKxW6MumTMw USirT459IOlmEhO5VCSx vfVaU3LeCYJrhWvz JpH4d7Z8Bv6mUB3bMK6n AEn1KE30UQ87uYHwn8M4 bOC4Q8PlRFMfsjewzowy oYM9PEHhROZibZ98 bJEeBWobBu8ug4A9h609 RNWrNFDuzH73Ki7zmYgf DMMaqICWxB6sgujns8tr cjogIzAwMDAwMDt0 JAt7UQEsfOfmTxPaWAB0 HgS8XUD9jWWirY7cyOsk xciqtI7dGpr+MjMgWWVh beO9K8PyFrl4FIJn uTzsXA0iqSGpTZewTe3e gHdobTkiHJ0dJNLgiaqr YTUebE0zXZXbaRCilRue UD2mQRKxvcvwk872 VcTpWVC9ZJTgsJFeM7Jj sP3mGdGaBXBhFTYmU0Ww cOUaHHlgO987XWxcMcB9 TGZnyiAdP4CvDVOb uPvzTrN6q2L3Sf1XNZ5f dHK2H3McLkd9SLKnoBys FX2hbLNaBLecXn4xbPqb bVrjGY4mYRIrvttk XXZsdS4cANRljATriCmp EF1vKAQwvolel807PiBb XRO7AXTvuBKoB1ZlaZ3b KmFvJMBcMZBtF4Ts oUZhYKcgZ329WAjxDxV1 MJLkziRjN5FjIVZhtVix WlV4x9Y2Rz9PxJDeZ1Zz W5l8X8BlFkqysPT+ VV27QAAqPT83oWTwvWYp r1lgaUc3BiXoQTIzUFP2 zGzjKNjag8UdRYLeT63b iAZbd4G2YPGrxYsk lVGwTwFejQA8wA2yWNqw uonir2jsanzdRbqyl9ml sl10rM02P32vXEmaHSCe PSIzMCUiIHZhbGln ku0sbL5fPh4+PGNvbCB3 iXE1cH3nYcDbUlY9GHqs V281VzVwgOBsYstuk0lr x2zmrSe8NiYfVBKz rsBexUgjADD5p7HgCa91 J97lDZcoWBQgTSMvHRDu JPPprGdmqo5gpI6lTw6+ QR2xw0siwm06pB86 dHI+NOUkCTR5uFwrUAfi WJVtoY0uODhbDtA2KRFj UrHmhJ93tWDjEDvwMt1k fWdiuYkqTF0yIXZx ipoet778KzVxt1rgSYJn xUNtQLezMLP1Z96ll5Y4 UVBkLNJjFXM5rQV5sP2s bGlnbjogbGVmdDsg siUxdXznAZbtHDmhI664 EMGuqOtfOnMzbLFeB5oc xkFZCB7xAliuiTV+PHRk LJR2rInqTDkiVORa jT6rBFYzN2e5PbJpThR5 BMxaN3SymuE2VELwaYDa JEOkuFUZyV7epmtpl6qq cjogIzAwMDAwMDt0 NSi2JJOsnPiwWrYdAXB2 QpJ6AXV8nZSxeB6nlRsx pbkhyB8lUfp+RklOOjwv dGQ+UDBiGTG9dJgt QLquUPYliL6cKPRdJ3x9 FqQlDnM8BDkjA6IumbM1 DRSphSPlTTBaaOXKaF4j admdo5vtkcmmMzCn FEKlPAi4CHa8YVXjqXqm HlOdLYN4LcU6ZFL2vKAa lD1wcFavynsdbM1dLsl+ TVJOOjwvdGQ+PHRk UCK1vArmBFrlHOVhmS6i ADQlR1f1YzTwOwJ0IYur Z3MycjA4XMGqqNIoPWWs zEYFbO0nythwo3gp zmyrDlWpWQUvSLy1AFu1 AUJygAknOxFeLAH7FoO2 QBY1kJUxkU7suDfmrump lR6oRgr+ISF9ZVE0 CG32MG39F6AlAvlhwVDd bGU+PHRhYmxlIHdpZHRo TFyxZZJfZdSvhHffVE9w Qh8wJCVnAGYzfDbe cHNl (more content not included)... Normal [facility] Consent for Treatmenton Consent for Treatment [id number] #[id number]:127 Normal [facility] Discharge Instructionson Discharge Instructions [id number]#1.00CD:127 Normal [facility] ED Clinical Summaryon 2020 ED Clinical Summary [address] [id number] ED Clinical Summary Person Information Name: ZAINAB MCCLURE [facility] Age: 25 Years : 1995 Sex: Female Language: Swazi PCP: ERIN SAMS CNP Marital Status: Single Visit Id: Visit Reason: Psychiatric problem; MENTAL EVAL Speciality: Acuity: 2 Enc Type: Emergency Med Service: Emergency Arrival: 02/17/2021 09:42:11 Discharge: 02/17/2021 11:49:40 LOS: 000 02:07 Checkin: 02/17/2021 09:42:11 Checkout: 02/17/2021 11:49:40 Dispo Type: Home (Routine DC) EVENTS: Event Name Event Status Request Date/Time Start Date/Time Complete Date/Time Arrive Complete 02/17/2021 09:42:11 02/17/2021 09:42:11 02/17/2021 09:42:11 Document Home Meds Request 02/17/2021 09:42:11 Triage Complete 02/17/2021 09:42:11 02/17/2021 10:07:25 02/17/2021 10:07:25 Bed Assign Complete 02/17/2021 10:02:09 02/17/2021 10:02:09 02/17/2021 10:02:09 Dr Exam Complete 02/17/2021 10:02:09 02/17/2021 10:02:39 02/17/2021 10:02:39 RN Exam Complete 02/17/2021 10:02:09 02/17/2021 10:21:20 02/17/2021 10:21:20 Registration Complete 02/17/2021 10:02:39 02/17/2021 10:53:44 02/17/2021 10:53:44 Reg Complete Request 02/17/2021 10:53:44 Reg Bed Request Complete 02/17/2021 10:53:44 02/17/2021 10:53:44 02/17/2021 10:53:44 Discharge Complete 02/17/2021 11:39:14 02/17/2021 11:52:53 02/17/2021 11:52:53 Transfer Complete 02/17/2021 11:52:53 02/17/2021 11:52:53 02/17/2021 11:52:53 ADDRESS: [address] [place] [id number] [facility] NOTES: MEDICAL INFORMATION: Prescriptions Given: New Medications Printed Prescriptions lorazepam (Ativan 1 mg Tab) 1 Tablets By Mouth every 8 hours for 2 Days. Take one by mouth every eight hours as needed. Refills: 0. PATIENT EDUCATION INFORMATION: Instructions: Suicidal Feelings: How to Help Yourself; Managing Anxiety, Adult Follow up: With: Address: When: [facility] In 1 day 02/18/2021 With: Address: When: ERIN SAMS [address] [address] [phone] Business (1) In 3 days DIAGNOSIS: Anxiety; Suicidal ideation Normal [facility] ED Note-Physicianon 02-18-20 ED Note-Physician Basic Information Time Seen: Vinicius Childers DO 02/17/2021 10:02 Chief Complaint Pt reports she has borderline personality disorder. She feels out of sorts and dissociated from reality and own body. paranoia. Hx of suicidal thoughts but none currently. Stopped therapy due to finances. History of Present Illness 25 female presents the emergency department with mental health evaluation. Patient states on and off for past month she has not really felt herself. She says that she is feeling depressed and anxious but a bit paranoid as well. She has had a couple of thoughts of self-harm but nothing today she has no plan for suicide. Patient does have history of borderline personality disorder in addition to anxiety and depression she has been taking her Abilify as prescribed by her primary care physician. Patient denies any other significant past medical history she is not complaining of any abdominal pain chest pain shortness of breath cough or fevers. She has been vaccinated against COVID-19 and has no symptoms to suggest this. She denies any chance of stating recent completion of her menstrual cycle. No other aggravating or relieving factors no other associated symptoms no other prior treatments or complaints. Family: Reviewed and noncontributory Social: lives at home denies tobacco alcohol and drugs Review of systems negative unless otherwise specified in the HPI. Physical Exam Vitals & Measurements T: 36.8 ?C (Oral) HR: 94(Peripheral) RR: 18 BP: 137/85 SpO2: 99% HT: 155.0 cm HT: 155 cm WT: 68.0 kg WT: 68 kg BMI: 28.3 General: The patient appears well and in no apparent distress. Patient is resting comfortably on cart. Skin: Warm, dry, no pallor noted. Head: Normocephalic, atraumatic Neck: No JVD Eye: PERRLA, EOMI ENT: Moist mucus membranes Cardiovascular: Regular rate normal peripheral perfusion Respiratory: No respiratory distress no accessory muscle use no obvious audible wheezing Chest Wall: no deformity Musculoskeletal: normal ROM, no deformity, no swelling GI: No obvious distention soft nontender nondistended no guarding rebounding or rigidity Neurological: A&O moves all extremities equal strength and symmetry Psychiatric: Cooperative and appropriate but tearful and anxious. She denies any hallucinations. She has had suicidal thoughts but nothing today. Medical Decision Making Patient was seen by mental health professionals and they do feel that she is appropriate to be discharged home and have follow-up appointment tomorrow. I think this is reasonable patient is comfortable with this plan she is discharged home with a prescription for a small amount of Ativan in case she should become more anxious. Return to ER symptoms should change or worsen or recur. Assessment/Plan Anxiety (F41.9: Anxiety disorder, unspecified) Ordered: lorazepam, 1 mg = 1 tab(s), Oral, q8hr, Take one by mouth every eight hours as needed, X 2 day(s), # 5 tab(s), Refills(s) 0 Suicidal ideation (R45.851: Suicidal ideations) Disposition Plan Discharge Prescription List Prescriptions Ativan 1 mg Tab, 1 mg= 1 tab(s), Oral, q8hr Follow-up With When Contact Information [facility] In 1 day 02/18/2021 EDT Additional Instructions: ERIN SAMS In 3 days [address] [facility], [place] [address]- [phone] Business (1) Additional Instructions: Patient Education Suicidal Feelings: How to Help Yourself Managing Anxiety, Adult Problem List/Past Medical History Ongoing No qualifying data Historical No qualifying data Medications Inpatient No active inpatient medications Home No active home medications Allergies No Known Medication Allergies Lab Results No qualifying data available. Diagnostic Results No qualifying data available. Normal [facility] Comment on above: Result Comment: Elec tronically Signed By: Vinicius Childers DO\.jim\Date and Time Signed: 02/17/21 11:41 EDT ED Patient Education Noteon 02-17-2021 ED Patient Education Note Mental and Behavioral Health Suicidal Feelings: How to Help Yourself Suicide is when you end your own life. There are many things you can do to help yourself feel better when struggling with these feelings. Many services and people are available to support you and others who struggle with similar feelings. If you ever feel like you may hurt yourself or others, or have thoughts about taking your own life, get help right away. To get help: ? Call your local emergency services (911 in the [place] ? The [facility] and human services helpline (211 in the [place] ? Go to your nearest emergency department. ? Call a suicide hotline to speak with a trained counselor. The following suicide hotlines are available in the [place]: ? 0-631-391-TALK ( ). ? 3-458-SXWFSOV ( ). ? . This is a hotline for Armenian speakers. ? . This is a hotline for TTY users. ? 1-562-4-U-RAMILA ( ). This is a hotline for lesbian, escobar, bisexual, transgender, or questioning youth. ? For a list of hotlines in [place], visit www.suicide.org/hotl zeferino/international/c pbsgw-trfymcg-jadqbi es.html ? Contact a crisis center or a local suicide prevention center. To find a crisis center or suicide prevention center: ? Call your local hospital, clinic, community service organization, mental health center, social service provider, or health department. Ask for help with connecting to a crisis center. ? For a list of crisis centers in the [place], visit: suicidepreventionlif nidia.org ? For a list of crisis centers in [place], visit: suicideprevention.ca How to help yourself feel better ? Promise yourself that you will not do anything extreme when you have suicidal feelings. Remember, there is hope. Many people have gotten through suicidal thoughts and feelings, and you can too. If you have had these feelings before, remind yourself that you can get through them again. ? Let family, friends, teachers, or counselors know how you are feeling. Try not to separate yourself from those who care about you and want to help you. Talk with someone every day, even if you do not feel sociable. Uwsp-vf-vonl conversation is best to help them understand your feelings. ? Contact a mental health care provider and work with this person regularly. ? Make a safety plan that you can follow during a crisis. Include phone numbers of suicide prevention hotlines, mental health professionals, and trusted friends and family members you can call during an emergency. Save these numbers on your phone. ? If you are thinking of taking a lot of medicine, give your medicine to someone who can give it to you as prescribed. If you are on antidepressants and are concerned you will overdose, tell your health care provider so that he or she can give you safer medicines. ? Try to stick to your routines. Follow a schedule every day. Make self-care a priority. ? Make a list of realistic goals, and cross them off when you achieve them. Accomplishments can give you a sense of worth. ? Wait until you are feeling better before doing things that you find difficult or unpleasant. ? Do things that you have always enjoyed to take your mind off your feelings. Try reading a book, or listening to or playing music. Spending time outside, in nature, may help you feel better. Follow these instructions at home: ? Visit your primary health care provider every year for a checkup. ? Work with a mental health care provider as needed. ? Eat a well-balanced diet, and eat regular meals. ? Get plenty of rest. ? Exercise if you are able. Just 30 minutes of exercise each day can help you feel better. ? Take jmbj-kqb-dhqqggy and prescription medicines only as told by your health care provider. Ask your mental health care provider about the possible side effects of any medicines you are taking. ? Do not use alcohol or drugs, and remove these substances from your home. ? Remove weapons, poisons, knives, and other deadly items from your home. General recommendations ? Keep your living space well lit. ? When you are feeling well, write yourself a letter with tips and support that you can read when you are not feeling well. ? Remember that life's difficulties can be sorted out with help. Conditions can be treated, and you can learn behaviors and ways of thinking that will help you. Where to find more information ? National Suicide Prevention Lifeline: www.suicidepreventio nlifeline.org ? Hopeline: www.hopeline.com ? [place] Foundation for Suicide Prevention: www.afsp.org ? The Ramila Project (for lesbian, escobar, bisexual, transgender, or questioning youth): www.thetrevorproject .org Contact a health care provider if: ? You feel as though you are a burden to others. ? You feel agitated, angry, vengeful, or have extreme mood swings. ? You have withdrawn from family and friends. Get (more content not included)... Normal [facility] ED Patient Summaryon 021 ED Patient Summary [place] [id number] Patient Discharge Instructions Person Information Name: ZAINAB MCCLURE Age: 25 Years Arrival Date: 02/17/2021 09:42:11 Discharge Diagnosis: Anxiety; Suicidal ideation Primary Care Physician: ERIN SAMS CNP Provider Information Primary Provider: Vinicius Childers DO Advanced Reliability Manager:None The exam and treatment you received in the Emergency Department were for an urgent problem and are not intended as complete care. It is important that you follow up with a doctor, nurse practitioner, or physician?s ophthalmic surgical assistant for ongoing care. If your symptoms become worse or you do not improve as expected and you are unable to reach your usual health care provider, you should return to the Emergency Department. We are available 24 hours a day. REN ZAINAB K has been given the following list of patient education materials, prescriptions and follow-up instructions: Follow-up Instructions: With: Address: When: [facility] In 1 day 02/18/2021 With: Address: When: ERIN SAMS [address] [facility] [address] [phone] Business (1) In 3 days In the event that this physician does not participate in your insurance network, please consult with your insurance company to find a nearby participating provider. Patient Education Materials: Suicidal Feelings: How to Help Yourself; Managing Anxiety, Adult A MESSAGE TO ALL PATIENTS REGARDING OPIOIDS PRESCRIPTION OPIOIDS: WHAT YOU NEED TO KNOW Prescription opioids can be used to help relieve jbreinzo-of-iybmlg pain and are often prescribed following a surgery or injury, or for certain health conditions. These medications can be an important part of the treatment but also come with serious risks. It is important to work with your healthcare provider to make sure you are getting the safest, most effective care. WHAT ARE THE RISKS AND SIDE EFFECTS OF OPIOID USE? Prescription opioids carry serious risks of addiction and overdose, especially with prolonged use. An opioid overdose, often marked by slowed breathing, can cause sudden . The use of prescription opioids can have a number of side effects as well, even when taken as directed: ? Tolerance?meaning you might need to take more of the medication for the same pain relief ? Physical dependence?meaning you have symptoms of withdrawal when a medication is stopped ? Increased sensitivity to pain ? Constipation ? Nausea, vomiting, and dry mouth ? Sleepiness and dizziness ? Confusion ? Depression ? Low levels of testosterone that can result in lower sex drive, energy, and strength ? Itching and sweating RISKS ARE GREATER WITH: ? History of drug misuse, substance use disorder, or overdose ? Mental health conditions (such as depression or anxiety) ? Sleep apnea ? Older age (65 years and older) ? Avoid alcohol while taking prescription opioids. Also, unless specifically advised by your health care provider, medications to avoid include: ? Benzodiazepines (such as Xanax or Valium) ? Muscle relaxants (such as Soma or Flexeril) ? Hypnotics (such as Ambien or Lunesta) ? Other prescription opioids KNOW YOUR OPTIONS Talk to your health care provider about ways to manage your pain that don?t involve prescription opioids. Some of these options may actually work better and have fewer risks and side effects. Options may include: ? Pain relievers such as acetaminophen, ibuprofen, and naproxen ? Some medication that are also used for depression or seizures ? Physical therapy and exercise ? Cognitive behavioral therapy, a psychological, goal-directed approach, in which patients learn how to modify physical, behavioral, and emotional triggers of pain and stress. IF YOU ARE PRESCRIBED OPIOIDS FOR PAIN: ? Never take opioids in greater amounts or more often than prescribed. ? Follow up with your primary health care provider. o Work together to create a plan on how to manage your pain. o Talk about ways to help manage your pain that don?t involve prescription opioids. o Talk about any and all concerns and side effects. ? Help prevent misuse and abuse o Never sell or share prescription opioids. o Never use another person?s prescription opioids. ? Store prescription opioids in a secure place and out of reach of others (this may include visitors, children, friends, and family). ? Safely dispose of unused prescription opioids: Find your community drug take-back program or your pharmacy mail-back program, or flush them down the toilet, following guidance from the Food and Drug Administration (www.fda.gov/Drugs/R esourcesForYou). ? Visit www.cdc.gov/drugover dose to learn about the risks of opioids abuse and overdose. ? If you believe you may be struggling with addiction, tell your health care professio (more content not included)... [facility] Valuables Checkliston 2020 Valuables Checklist [id number] Normal [facility] Vital Signs Date Time Vital Sign Value Performing Clinician Facility 03-11-2023 09:53-0400 Body height 154.9 cm Farshad Yaritza GONZALEZN-IT OPERATIONS MANAGER Work Phone: [facility] 12-10-2022 12:07-0400 Body height 155.2 cm Suman Baker MD, PhD Work Phone: [facility] Comment on above: without shoes 12-10-2022 12:07-0400 Body mass index (BMI) [Ratio] 30.64 kg/m2 Suman Baker MD, PhD Work Phone: [facility] 12-10-2022 12:07-0400 Body temperature 97.81 [degF] Suman Baker MD, PhD Work Phone: [facility] 12-10-2022 12:07-0400 Body weight 73.8 kg Suman Baker MD, PhD Work Phone: [facility] Comment on above: without shoes 12-10-2022 12:07-0400 Diastolic blood pressure 72 mm[Hg] Suman Baker MD, PhD Work Phone: [facility] 12-10-2022 12:07-0400 Heart rate 77 /min Suman Baker MD, PhD Work Phone: [facility] 12-10-2022 12:07-0400 Respiratory rate 14 /min Suman Baker MD, PhD Work Phone: [facility] 12-10-2022 12:07-0400 SaO2% (BldA) [Mass fraction] 99 % Suman Baker MD, PhD Work Phone: [facility] Comment on above: room air 12-10-2022 12:07-0400 Systolic blood pressure 118 mm[Hg] Suman Baker MD, PhD Work Phone: [facility] 10-22-2022 13:57-0400 Body height 154.9 cm Chayo Suero MD Work Phone: [facility] 10-22-2022 13:57-0400 Body mass index (BMI) [Ratio] 30.33 kg/m2 Chayo Suero MD Work Phone: [facility] 10-22-2022 13:57-0400 Body temperature 97.59 [degF] Chayo Suero MD Work Phone: [facility] 10-22-2022 13:57-0400 Body weight 72.8 kg Chayo Suero MD Work Phone: [facility] 10-22-2022 13:57-0400 Diastolic blood pressure 62 mm[Hg] Chayo Suero MD Work Phone: [facility] 10-22-2022 13:57-0400 Heart rate 62 /min Chayo Suero MD Work Phone: [facility] 10-22-2022 13:57-0400 Respiratory rate 20 /min Chayo Suero MD Work Phone: [facility] 10-22-2022 13:57-0400 SaO2% (BldA) [Mass fraction] 99 % Chayo Suero MD Work Phone: [facility] 10-22-2022 13:57-0400 Systolic blood pressure 119 mm[Hg] Chayo Suero MD Work Phone: [facility] 10-22-2022 10:19-0400 Body height 157.5 cm Yudelka Moralez BACKER UP-IT OPERATIONS MANAGER Work Phone: [facility] 10-22-2022 10:19-0400 Body mass index (BMI) [Ratio] 28.66 kg/m2 Yudelka Moralez BACKER UP-IT OPERATIONS MANAGER Work Phone: [facility] 10-22-2022 10:19-0400 Body weight 71.1 kg Yudelka Moralez BACKER UP-IT OPERATIONS MANAGER Work Phone: [facility] 10-22-2022 10:19-0400 Diastolic blood pressure 76 mm[Hg] Yudelka Moralez BACKER UP-IT OPERATIONS MANAGER Work Phone: [facility] 10-22-2022 10:19-0400 Systolic blood pressure 126 mm[Hg] Yudelka Moralez BACKER UP-IT OPERATIONS MANAGER Work Phone: [facility] 10-22-2022 07:38-0400 Body height 157.5 cm Yudelka Moralez BACKER UP-IT OPERATIONS MANAGER Work Phone: [facility] 10-22-2022 07:38-0400 Diastolic blood pressure 76 mm[Hg] Yudelka Moralez BACKER UP-IT OPERATIONS MANAGER Work Phone: [facility] 10-22-2022 07:38-0400 Heart rate 73 /min Yudelka Moralez BACKER UP-IT OPERATIONS MANAGER Work Phone: [facility] 10-22-2022 07:38-0400 Systolic blood pressure 126 mm[Hg] Yudelka Moralez BACKER UP-IT OPERATIONS MANAGER Work Phone: [facility] 10-07-2022 11:05-0400 Body height 157.5 cm Yudelka Moralez BACKER UP-IT OPERATIONS MANAGER Work Phone: [facility] 10-07-2022 11:05-0400 Body mass index (BMI) [Ratio] 28.66 kg/m2 Yudelka Moralez BACKER UP-IT OPERATIONS MANAGER Work Phone: [facility] 10-07-2022 11:05-0400 Body temperature 98.2 [degF] Yudelka Moralez BACKER UP-IT OPERATIONS MANAGER Work Phone: [facility] 10-07-2022 11:05-0400 Body weight 71.08 kg Yudelka Moralez BACKER UP-IT OPERATIONS MANAGER Work Phone: [facility] 10-07-2022 11:05-0400 Diastolic blood pressure 74 mm[Hg] Yudelka Kirt BACKER UP-IT OPERATIONS MANAGER Work Phone: [facility] 10-07-2022 11:05-0400 Heart rate 81 /min Yudelka Moralez BACKER UP-IT OPERATIONS MANAGER Work Phone: [facility] 10-07-2022 11:05-0400 Respiratory rate 16 /min Yudelka Moralez BACKER UP-IT OPERATIONS MANAGER Work Phone: [facility] 10-07-2022 11:05-0400 SaO2% (BldA) [Mass fraction] 99 % Yudelka Moralez BACKER UP-IT OPERATIONS MANAGER Work Phone: [facility] 10-07-2022 11:05-0400 Systolic blood pressure 120 mm[Hg] Yudelka Moralez BACKER UP-IT OPERATIONS MANAGER Work Phone: [facility] 08-19-2022 15:43-0500 Diastolic blood pressure 88 mm[Hg] Andreas Ortega MD, MPH Work Phone: [facility] 08-19-2022 15:43-0500 Systolic blood pressure 117 mm[Hg] Andreas Ortega MD, MPH Work Phone: [facility] 07-08-2022 07:50-0500 Body height 157.5 cm Andreas Ortega MD, MPH Work Phone: [facility] 07-08-2022 07:50-0500 Body mass index (BMI) [Ratio] 28.73 kg/m2 Andreas Ortega MD, MPH Work Phone: [facility] 07-08-2022 07:50-0500 Body temperature 98.01 [degF] Andreas Ortega MD, MPH Work Phone: 9(451)109-603163 [address] 07-08-2022 07:50-0500 Body weight 71.26 kg Andreas Ortega MD, MPH Work Phone: 3(698)736-207531 [place] [address] 07-08-2022 07:50-0500 Diastolic blood pressure 77 mm[Hg] Andreas Ortega MD, MPH Work Phone: 9(951)022-735331 [place] [address] 07-08-2022 07:50-0500 Heart rate 73 /min Andreas Ortega MD, MPH Work Phone: 3(395)545-817031 [place] [address] 07-08-2022 07:50-0500 Respiratory rate 16 /min Andreas Ortega MD, MPH Work Phone: 7(343)861-183731 [place] [address] 07-08-2022 07:50-0500 SaO2% (BldA) [Mass fraction] 98 % Andreas Ortega MD, MPH Work Phone: 2(923)533-577131 [place] [address] 07-08-2022 07:50-0500 Systolic blood pressure 121 mm[Hg] Andreas Ortega MD, MPH Work Phone: [facility] 06-09-2022 13:10-0500 Body mass index (BMI) [Ratio] 29.3 kg/m2 Carlos Eliseo BACKER UP-IT OPERATIONS MANAGER Work Phone: [facility] 06-09-2022 13:10-0500 Body temperature 98.6 [degF] Carlos Gomes BACKER UP-IT OPERATIONS MANAGER Work Phone: [facility] 06-09-2022 13:10-0500 Body weight 72.67 kg Carlos Eliseo BACKER UP-IT OPERATIONS MANAGER Work Phone: [facility] 06-09-2022 13:10-0500 Diastolic blood pressure 60 mm[Hg] Carlos Gomes BACKER UP-IT OPERATIONS MANAGER Work Phone: [facility] 06-09-2022 13:10-0500 Heart rate 80 /min Carlos [facility] Work Phone: [facility] 06-09-2022 13:10-0500 Respiratory rate 16 /min Carlos [facility] [employer] [facility] Work Phone: [facility] 06-09-2022 13:10-0500 SaO2% (BldA) [Mass fraction] 98 % Carlos [facility] [employer] MA[facility] Work Phone: [facility] 06-09-2022 13:10-0500 Systolic blood pressure 110 mm[Hg] Carlos [employer] [employer] Work Phone: [facility] 05-29-2022 07:32-0500 Body temperature 98.01 [degF] Suman Baker MD, PhD Work Phone: [facility] 05-29-2022 07:32-0500 Diastolic blood pressure 64 mm[Hg] Suman Baker MD, PhD Work Phone: [facility] 05-29-2022 07:32-0500 Heart rate 77 /min Suman Baker MD, PhD Work Phone: [facility] 05-29-2022 07:32-0500 Respiratory rate 16 /min Suman Baker MD, PhD Work Phone: [facility] 05-29-2022 07:32-0500 SaO2% (BldA) [Mass fraction] 99 % Suman Baker MD, PhD Work Phone: [facility] 05-29-2022 07:32-0500 Systolic blood pressure 100 mm[Hg] Suman Baker MD, PhD Work Phone: [facility] 05-22-2022 15:50-0400 Body height 157.5 cm Suman Baker MD, PhD Work Phone: 7(126)722-364744 [address] 05-22-2022 15:50-0400 Body mass index (BMI) [Ratio] 30.73 kg/m2 Suman Baker MD, PhD Work Phone: 0(064)703-513544 [address] 05-22-2022 15:50-0400 Body weight 76.2 kg Suman Baker MD, PhD Work Phone: 2(596)501-524844 [address] 03-31-2022 12:02-0400 Diastolic blood pressure 70 mm[Hg] [facility] BACKER UP-IT OPERATIONS MANAGER Work Phone: 4(295)625-016434 [place] [address] 03-31-2022 12:02-0400 Systolic blood pressure 124 mm[Hg] [facility] BACKER UP-IT OPERATIONS MANAGER Work Phone: 7(264)402-427034 [place] [address] 03-31-2022 11:53-0400 Body height 157.5 cm [facility] BACKER UP-IT OPERATIONS MANAGER Work Phone: 2(660)367-386534 [place] [address] 03-19-2022 15:37-0400 Body height 158.3 cm Suman Baker MD, PhD Work Phone: 0(199)397-079544 [address] 03-19-2022 15:37-0400 Body mass index (BMI) [Ratio] 30.63 kg/m2 Suman Baker MD, PhD Work Phone: 1(272)064-391634 [place] [address] 03-19-2022 15:37-0400 Body temperature 97.5 [degF] Suman Baker MD, PhD Work Phone: 4(476)038-895844 [address] 03-19-2022 15:37-0400 Body weight 76.75 kg Suman Baker MD, PhD Work Phone: 2(277)402-331890 [place] [address] 03-19-2022 15:37-0400 Diastolic blood pressure 84 mm[Hg] Suman Baker MD, PhD Work Phone: [facility] 03-19-2022 15:37-0400 Heart rate 90 /min Suman Baker MD, PhD Work Phone: [facility] 03-19-2022 15:37-0400 Respiratory rate 16 /min Suman Baker MD, PhD Work Phone: [facility] 03-19-2022 15:37-0400 SaO2% (BldA) [Mass fraction] 98 % Suman Baker MD, PhD Work Phone: [facility] 03-19-2022 15:37-0400 Systolic blood pressure 128 mm[Hg] Suman Baker MD, PhD Work Phone: [facility] 12-22-2021 18:05-0400 Body height 152.4 cm Ava Lundberg Other [facility] Other 12-22-2021 18:05-0400 Body mass index (BMI) [Ratio] 30.62 kg/m2 Ava Lundberg Other [facility] Other 12-22-2021 18:05-0400 Body temperature 99 [degF] Ava Lundberg Other [facility] Other 12-22-2021 18:05-0400 Body weight 71.12 kg Ava Lundberg Other [facility] Other 12-22-2021 18:05-0400 Diastolic blood pressure 89 mm[Hg] Ava Lundberg Other [facility] Other 12-22-2021 18:05-0400 Respiratory rate 16 /min Ava Tamika Other [facility] Other 12-22-2021 18:05-0400 SaO2% (BldA) [Mass fraction] 99 % Ava Lundberg Other [facility] Other 12-22-2021 18:05-0400 Systolic blood pressure 129 mm[Hg] Ava Lundberg Other [facility] Other Encounters Encounter Date Encounter Type Care Provider Facility Start: 08-09-2023 End: 08-09-2023 ambulatory LIZBET CAST Not Available Start: 07-14-2023 End: 07-14-2023 ambulatory MCKENZIE GRAYO Not Available Start: 06-01-2023 End: 06-01-2023 ambulatory MCKENZIE SOLE Not Available Start: 04-06-2023 ambulatory ERIN S LATRELL Facilit y:[facility] Start: 03-17-2023 ambulatory ERIN S LATRELL Facilit y:[facility] Start: 03-11-2023 ambulatory ERIN S LATRELL Facilit y:[facility] Start: 03-11-2023 End: 03-11-2023 Clinical Support Encounter Suman Baker MD, PhD Work Phone: [facility] 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 Start: 03-11-2023 ambulatory ERIN S LATRELL Facilit y:[facility] Start: 03-11-2023 End: 03-11-2023 Subsequent hospital visit by physician Farshad Vigil BACKER UP-IT OPERATIONS MANAGER Work Phone: [facility] Comment on above: Arrived Start: 01-04-2023 ambulatory ERIN LATRELL Facility: [facility] Start: 12-16-2022 ambulatory ERINSHAVON CHARLESMER Facility: 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 Start: 11-30-2022 End: 11-30-2022 ambulatory ERIN LATRELL Facility: Start: 10-27-2022 ambulatory CHEIKH COELHO Facility :[facility] Start: 10-27-2022 ambulatory ERIN STONER Facility :[facility] Start: 10-22-2022 ambulatory ANDREASGERMAN ORTEGA Facility: [facility] Start: 10-22-2022 End: 10-22-2022 Office outpatient new 60 minutes Chayo Suero MD Work Phone: [facility] Comment on above: Fibromyalgia muscle pain (Primary Dx) Start: 10-22-2022 ambulatory YUDELKA KIRT Facility:[facility] Start: 10-22-2022 End: 10-22-2022 Subsequent hospital visit by physician Yudelka Moralez BACKER UP-IT OPERATIONS MANAGER Work Phone: [facility] [place] Start: 10-22-2022 ambulatory YUDELKA MORALEZ Facility:[facility] Start: 10-22-2022 End: 10-22-2022 Subsequent hospital visit by physician Yudelka Moralez BACKER UP-IT OPERATIONS MANAGER Work Phone: [facility] [place] Comment on above: Arrived Start: 10-21-2022 ambulatory YUDELKA MORALEZ Facility:[facility] Start: 10-07-2022 ambulatory ANDREAS ORTEGA Facility: [facility] Start: 10-07-2022 End: 10-07-2022 Office outpatient visit 25 minutes Yudelka Moralez BACKER UP-IT OPERATIONS MANAGER Work Phone: Division of Medical Oncology Comment on above: Carcinoid syndrome ( Primary Dx); SOB (shortness of breath); Tachycardia; Antinuclear antibody (HUNTER) titer greater than 1:80; Primary malignant neuroendocrine tumor of appendix Start: 10-06-2022 End: 10-06-2022 ambulatory ERIN SAMS Facility:[facility] Start: 10-02-2022 End: 10-03-2022 ambulatory ERIN SAMS Facility:[facility] Start: 09-30-2022 End: 10-01-[address] DOCTOR GREGORY Facility:[facility] Start: 09-23-2022 End: 09-24-2022 ambulatory ERIN SAMS Facility:[facility] Start: 09-15-2022 End: 09-15-2022 ambulatory ERIN SAMS Facility:[facility] Start: 09-09-2022 End: 09-09-[address] DOCTOR GREGORY Facility:[facility] Start: 09-04-2022 Encounter for genera l adult medical examination without abnormal findings ERIN SAMS [facility] Start: 08-31-2022 End: 09-01-2022 ambulatory ERIN SAMS Facility:[facility] Start: 08-31-2022 End: 09-01-2022 Encounter for general adult medical examination without abnormal findings ERIN SAMS Facility:[facility] Start: 08-26-2022 ambulatory ANDREASGERMAN ORTEGA Facility: [facility] Start: 08-24-2022 End: 08-25-[address] DOCTOR GREGORY Facility:[facility] Start: 08-19-2022 ambulatory ANDREASJANNY ORTEGA Facility: [facility] Start: 08-19-2022 End: 08-19-2022 Subsequent hospital visit by physician Andreas Ortega MD, MPH Work Phone: Department of Radiology Comment on above: Arrived Start: 08-19-2022 ambulatory YUDELKA MORALEZ Facility:[facility] Start: 08-19-2022 End: 08-19-2022 Subsequent hospital visit by physician Yudelka Moralez BACKER UP-IT OPERATIONS MANAGER Work Phone: [facility] Comment on above: Arrived Start: 08-12-2022 End: 08-12-2022 ambulatory ERIN SAMS Facility:[facility] Start: 08-05-2022 End: 08-05-2022 ambulatory ERIN SAMS Facility:[facility] Start: 07-08-2022 ambulatory SELF SELF Facility:[facility] Start: 07-08-2022 End: 07-08-2022 Office consultation new/estab patient 80 min Andreas Ortega MD, MPH Work Phone: Division of Medical Oncology 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) Start: 07-06-2022 ambulatory SELF SELF Facility:[facility] Start: 06-09-2022 ambulatory SELF SELF Facility:[facility] Start: 06-09-2022 End: 06-09-2022 Postop follow up visit related to original px Carlos Gomes BACKER UP-IT OPERATIONS MANAGER Work Phone: Division of Surgical Oncology 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 Start: 05-22-2022 End: 05-29-2022 Evaluation and management of inpatient Suman Baker MD, PhD Work Phone: [id number] 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 Facility:[facility] Start: 04-06-2022 Encounter for preprocedural laboratory examination DR TIMMY HALL . 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) Start: 02-19-2022 Telephone encounter Intestinal Trans Coord Main Work Phone: Transplant Center Comment on above: Referral Request Start: 02-03-2022 End: 02-04-2022 ambulatory ERIN SAMS Facility:[facility] Start: 12-22-2021 End: 12-22-2021 ambulatory Ava Lundberg Other SEAT 4a Other Start: 12-22-2021 Office outpatient vi sit 15 minutes Ava Lundberg [facility] Procedures Date Procedure Procedure Detail Performing Clinician Start: 03-11-2023 Mri abdomen w/o cont rast material Yudelka Moralez BACKER UP-IT OPERATIONS MANAGER Work Phone: Start: 10-22-2022 Echo tthrc r-t 2d w/wom-mode compl spec&colr d Yudelka Moralez BACKER UP-IT OPERATIONS MANAGER Work Phone: Start: 10-22-2022 Ct soft tissue neck w/contrast material Yudelka Moralez BACKER UP-IT OPERATIONS MANAGER Work Phone: Start: 10-22-2022 Ct thorax w/contrast material Yudelka Moralez BACKER UP-IT OPERATIONS MANAGER Work Phone: Start: 10-07-2022 Natriuretic peptide Yudelka Moralez BACKER UP-IT OPERATIONS MANAGER Work Phone: Start: 08-19-2022 Creatinine blood Marciano Ortega MD, MPH Work Phone: Start: 08-19-[address] atten uation skull base mid-thigh Yudelka Moralez BACKER UP-[facility] Work Phone: Start: 05-29-2022 Assay of magnesium Dwaine Arnold MD Work Phone: Start: 05-28-2022 Assay of magnesium Dwaine Arnold MD Work Phone: Start: 05-27-2022 Assay of magnesium Dwaine Arnold MD Work Phone: Start: 05-26-2022 Assay of magnesium Dwaine Arnold MD Work Phone: Start: 05-25-2022 Assay of magnesium Dwaine Arnold MD Work Phone: Start: 05-24-2022 Assay of magnesium Dwaine Arnold MD Work Phone: Start: 05-23-2022 Assay of magnesium Dwaine Arnold MD Work Phone: Start: 05-22-2022 Radiologic exam abdo men 1 view Narciso Hong MD Work Phone: Start: 05-22-2022 CONTINUOUS CARDIAC MONITORING STRIP Other Other Start: 05-22-2022 Bilirubin direct Apeksh a Clayton MD Work Phone: Start: 05-22-2022 Calcium ionized Suman Baker MD, PhD Work Phone: Start: 05-22-2022 CONTINUOUS CARDIAC MONITORING STRIP Other Other Start: 05-22-2022 End: 05-22-2022 Antibody screen Suman Baker MD, PhD Work Phone: Comment on above: Performed By: #### C A, IPB, CHM7, MGO #### [facility] (DEFAULT) [address] [place] [address] Start: 05-22-2022 Calcium ionized Suman Baker MD, PhD Work Phone: Start: 05-22-2022 End: 05-22-2022 Colectomy partial w/anastomosis Suman Baker MD, PhD Work Phone: Start: 05-22-2022 End: 05-22-2022 Hyperthermia intracavitary probes Suman Baker MD, PhD Work Phone: Start: 05-22-2022 End: 05-22-2022 Resection recrt mal w/omentectomy pel lmphadec Suman Baker MD, PhD Work Phone: Start: 05-22-2022 Blood typing serologic abo Liza Cisneros PA-C Work Phone: Start: 05-22-2022 PREPARE TO TRANSFUSE OR RED BLOOD CELLS Liza Cisneros PA-C Work Phone: Start: 05-22-2022 Gonadotropin chorion ic qualitative Suman Baker MD, PhD Work Phone: Start: 03-31-2022 Ct thorax w/contrast material Carlos Gomes BACKER UP-IT OPERATIONS MANAGER Work Phone: Start: 03-19-2022 CBC AND ELECTRONIC DIFF Carlos Gomes BACKER UP-IT OPERATIONS MANAGER Work Phone: Start: 03-19-2022 Complete blood count with white cell differential, automated Carlos Gomes BACKER UP-IT OPERATIONS MANAGER Work Phone: Start: 03-19-2022 Comprehensive metabo lic panel Carlos Gomes BACKER UP-IT OPERATIONS MANAGER Work Phone: Plan of Treatment Date Care Activity Detail Author Start: 10-28-2023 End: 10-28-2023 Patient encounter procedure 10/28/2023 1:00 PM EDT Office Visit [facility] [place] [address] [place] [address] Kelton Cabrera Jr., MD [address] [place] [address] [facility] [place] Start: 06-17-2023 End: 06-17-2023 Patient encounter procedure 06/17/2023 1:30 PM EST Office Visit Division of Surgical Oncology [address] [place] [phone] Suman Baker MD, PhD [address] [place] [id number] Division of Surgical Oncology Start: 06-17-2023 End: 06-17-2023 Patient encounter procedure 06/17/2023 12:20 PM EST Appointment Imaging [facility] [address] [place] [phone] Suman Baker MD, PhD [address] [place] [id number] Imaging [facility] Start: 03-19-2023 Influenza vaccination [facility] Start: 03-17-2023 End: 03-17-2023 Patient encounter procedure Division of Medical Oncology Start: 03-11-2023 End: 03-11-2023 Patient encounter procedure 03/11/2023 Office Visit Surgical Oncology Suman Baker MD, PhD [address] [place] [address] Division of Surgical Oncology Start: 03-11-2023 End: 03-11-2023 Patient encounter procedure Imaging Outpatient [facility] Start: 12-22-2022 End: 12-22-2022 Patient encounter procedure 12/22/2022 Office Visit Cardiovascular Medicine Marisela Velásquez, BACKER UP-IT OPERATIONS MANAGER [address] [place] [address] Cardiology [facility] 5 Start: 12-17-2022 End: 12-17-2022 Patient encounter procedure 12/17/2022 Office Visit Oncology Andreas Ortega MD, MPH [address] [place] [address] Division of Medical Oncology Start: 12-10-2022 End: 12-11-2023 CT Abdomen and Pelvis W contrast IV CT ABDOMEN/PELVIS WITH CONTRAST Imaging Routine Primary malignant neuroendocrine tumor of appendix Expected: 12/10/2022, Expires: 12/11/2023 [facility] Comment on above: Expected: 12/10/2022, Expires: 4 Start: 12-10-2022 End: 12-11-2023 CT Chest W contrast IV CT CHEST WITH CONTRAST Imaging Routine Primary malignant neuroendocrine tumor of appendix Expected: 12/10/2022, Expires: 12/11/2023 [facility] Comment on above: Expected: 12/10/2022, Expires: 4 Start: 12-10-2022 End: 12-10-2022 Patient encounter procedure [facility] Start: 12-07-2022 End: 06-09-2023 CT Abdomen and Pelvis W contrast IV CT ABDOMEN/PELVIS WITH CONTRAST Imaging Routine Primary malignant neuroendocrine tumor of appendix Expected: 12/07/2022, Expires: 06/09/2023 [facility] Comment on above: Expected: 12/07/2022, Expires: 3 Start: 11-05-2022 End: 11-05-2022 Patient encounter procedure 11/05/2022 Office Visit Oncology Andreas Ortega MD, MPH [address] [place] [phone] Division of Medical Oncology Start: 10-27-2022 End: 10-27-2022 Patient encounter procedure 10/27/2022 Office Visit Cardiovascular Medicine Cheikh Coelho MD [address] [place] [phone] Cardiology [facility] 5 Start: 10-27-2022 End: 10-27-2022 ambulatory 10/27/2022 Telemed Clin Support Genetics Erin Stoner, [facility] [address] [place] [address] Division of Human Genetics Start: 10-21-2022 Subsequent hospital visit by physician 10/21/2022 Hospital Encounter Computerized Tomography Scan Yudelka Moralez APRN-CNP [address] [place] [address] [facility] [place] Start: 10-21-2022 End: 10-21-2022 Patient encounter procedure 10/21/2022 Appointment Echocardiography Yudelka Moralez APRN-CNP [address] [place] [address] [facility] [place] Start: 10-07-2022 End: 10-08-2023 CT Chest W contrast IV CT CHEST WITH CONTRAST Imaging Routine Carcinoid syndrome SOB (shortness of breath) Tachycardia Primary malignant neuroendocrine tumor of appendix Expected: 10/07/2022, Expires: 10/08/2023 [facility] Comment on above: Expected: 10/07/2022, Expires: Start: 10-07-2022 End: 10-08-2023 CT Neck W contrast IV CT NECK WITH CONTRAST Imaging Routine Primary malignant neuroendocrine tumor of appendix Expected: 10/07/2022, Expires: 10/08/2023 [facility] Comment on above: Expected: 10/07/2022, Expires: 4 Start: 08-26-2022 End: 08-26-2022 Telemedicine consultation with patient 08/26/2022 Telemedicine Oncology Andreas Ortega MD, MPH [address] [place] [address] Division of Medical Oncology Start: 08-19-2022 End: 08-19-2022 Patient encounter procedure Imaging [facility] Start: 07-08-2022 End: 07-08-2023 Complete blood count with white cell differential, automated CBC, EDIF, PLATELET Lab Routine Primary malignant neuroendocrine tumor of appendix Expected: 07/08/2022, Expires: 07/08/2023 [facility] Comment on above: Expected: 07/08/2022, Expires: 3 Start: 07-08-2022 End: 07-08-2023 Comprehensive metabolic 2000 panel - Serum or Plasma COMPREHENSIVE METABOLIC PANEL Lab Routine Primary malignant neuroendocrine tumor of appendix Expected: 07/08/2022, Expires: 07/08/2023 [facility] Comment on above: Expected: 07/08/2022, Expires: 3 Start: 07-08-2022 End: 07-08-2023 CT Abdomen and Pelvis WO and W contrast IV CT ABDOMEN/PELVIS WITH AND WITHOUT CONTRAST Imaging Routine Primary malignant neuroendocrine tumor of appendix Expected: 07/08/2022, Expires: 07/08/2023 [facility] Comment on above: Expected: 07/08/2022, Expires: 3 Start: 07-08-2022 End: 07-08-2023 Lactate dehydrogenase [Enzymatic activity/volume] in Serum or Plasma LACTATE DEHYDROGENASE Lab Routine Primary malignant neuroendocrine tumor of appendix Expected: 07/08/2022, Expires: 07/08/2023 [facility] Comment on above: Expected: 07/08/2022, Expires: 3 Start: 07-08-2022 End: 07-08-2023 PT Skull base to mid-thigh NUC PET NEUROENDOCRINE Imaging Routine Primary malignant neuroendocrine tumor of appendix Expected: 07/08/2022, Expires: 07/08/2023 [facility] Comment on above: Expected: 07/08/2022, Expires: Start: 07-08-2022 End: 07-08-2022 Patient encounter procedure 07/08/2022 Office Visit Oncology Andreas Ortega MD, MPH [address] [place] [address] Division of Medical Oncology Start: 07-06-2022 End: 07-06-2022 Telemedicine consultation with patient 07/06/2022 Telemedicine Surgical Oncology Carlos Gomes, BACKER UP-IT OPERATIONS MANAGER [address] [place] [address] [facility] Start: 06-09-2022 End: 06-09-2022 Patient encounter procedure 06/09/2022 Office Visit Surgical Oncology Carlos Gomes, BACKER UP-IT OPERATIONS MANAGER [address] [place] [address] Division of Surgical Oncology Start: 04-21-2022 End: 04-21-2022 Evaluation and management of inpatient 04/21/2022 Surgery Multispecialty Suman Baker MD, PhD [address] [place] [phone] COLECTOMY PARTIAL LAPAROSCOPIC [facility] Comment on above: COLECTOMY PARTIAL LAPAROSCOPIC Start: 04-21-2022 End: 04-21-2022 Laparoscopy colectomy partial w/anastomosis COLECTOMY PARTIAL LAPAROSCOPIC Primary malignant neuroendocrine tumor of appendix 04/21/2022 7:15 AM EDT [facility] Start: 04-21-2022 Evaluation and management of inpatient 04/21/2022 Hospital Encounter Multispecialty Suman Baker MD, PhD [address] [place] [phone] Primary malignant neuroendocrine tumor of appendix [facility] Comment on above: Primary malignant neuroendocrine tumor o f appendix Start: 03-19-2022 End: 03-19-2023 Colonoscopy flx dx w/collj spec when pfrmd DIAGNOSTIC COLONOSCOPY GI/Bronch STAT Primary malignant neuroendocrine tumor of appendix Expected: 03/19/2022, Expires: 03/19/2023 [facility] Comment on above: Expected: 03/19/2022, Expires: 3 Start: 03-19-2022 Influenza vaccination INFLUENZA VACCINE (#1) [facility] Start: 03-19-2022 End: 03-19-2023 TYPE AND SCREEN - PREADMISSION TYPE AND SCREEN - PREADMISSION Blood Bank Routine Primary malignant neuroendocrine tumor of appendix Expected: 03/19/2022, Expires: 03/19/2023 [facility] Work Phone: Comment on above: Expected: 03/19/2022, Expires: 3 Start: 07-10-2021 COVID-19 VACCINE (2 - Pfizer risk series) COVID-19 VACCINE (2 - Pfizer risk series) [facility] Start: 07-10-2021 COVID-19 VACCINE (2 - Pfizer series) COVID-19 VACCINE (2 - Pfizer series) [facility] Start: 08-14-2020 Tetanus vaccination TETANUS [facility] Start: 2018 Screening for malignant neoplasm of cervix CERVICAL CANCER SCREENING DISCUSSION [facility] Start: 2016 Third diphtheria, tetanus and acellular pertussis (DTaP) vaccination TDAP (ADULT) [facility] Start: 2016 Zoster vaccine hzv live for subcutaneous use ZOSTER (SHINGLES) VACCINE (1 of 2) [facility] Start: 2015 Tetanus vaccination TETANUS [facility] Start: 2013 Screening for Chlamydia trachomatis CHLAMYDIA SCREEN [facility] Start: 2012 HIV screening HIV SCREENING DISCUSSION [facility] Start: 02-11-2011 Vaccination for human papillomavirus HPV VACCINE ADOL (2 - 2-dose series) [facility] Start: 09-11-2010 Vaccination for human papillomavirus HPV VACCINE ADOL (2 - Risk 3-dose series) [facility] Start: 2008 Vaccination for human papillomavirus HPV VACCINE ADOL (1 - 2-dose series) [facility] Start: 2003 PNEUMOCOCCAL VACCINE SERIES (1 - PCV) PNEUMOCOCCAL VACCINE SERIES (1 - PCV) [facility] Start: 1997 GONORRHEA SCREEN GONORRHEA SCREEN [facility] Start: 1997 Hepatitis C antibody, confirmatory test HEPATITIS C VIRUS SCREENING [facility] Start: 1997 Hepatitis C screening HEPATITIS C VIRUS SCREENING [facility] Start: 1997 Screening for Chlamydia trachomatis GONORRHEA SCREEN [facility] CHROMOGRANIN A CHROMOGRANIN A L ab Routine Primary malignant neuroendocrine tumor of appendix 03/11/2023 11:44 AM EDT [facility] Work Phone: End: 03-31-2022 CT Abdomen and Pelvis W contrast IV [facility] Work Phone: Comment on above: 1 Occurrences starting 03/31/2022 until 03/31/2022 End: 08-14-2022 CT Abdomen and Pelvis WO and W contrast IV [facility] Work Phone: Comment on above: 1 Occurrences starting 08/14/2022 until 08/14/2022 Ecg routine ecg w/le ast 12 lds trcg only w/o i&r [place] ECG, TRACING ONLY [place] - OFFICE PERFORMED Routine Primary malignant neuroendocrine tumor of appendix Ordered: 03/19/2022 [facility] Comment on above: Ordered: 03/19/2022 Echocardiography ECHOCARDIOGRAM Echocardiography Routine Carcinoid syndrome SOB (shortness of breath) Tachycardia Ordered: 10/07/2022 [facility] Comment on above: Ordered: 10/07/2022 Laparoscopy colectom y partial w/anastomosis COLECTOMY PARTIAL LAPAROSCOPIC Primary malignant neuroendocrine tumor of appendix [facility] End: 03-09-2023 Magnetic resonance imaging of abdomen and pelvis with contrast MRI ABDOMEN/PELVIS WITHOUT AND WITH CONTRAST Imaging Routine Primary malignant neuroendocrine tumor of appendix 1 Occurrences starting 03/09/2023 until 03/09/2023 [facility] Comment on above: 1 Occurrences starting 03/09/2023 until 03/09/2023 Removal of kike [place] STAPLE REM OVAL [place] - OFFICE PERFORMED Routine Primary malignant neuroendocrine tumor of appendix Ordered: 06/09/2022 [facility] Comment on above: Ordered: 06/09/2022 SURG PATH REQUEST [facility] Comment on above: Release Upon Ordering for 1 Occurrences starting 05/22/2022, 1 completed Immunizations Immunization Date Immunization Notes Care Provider Chhaya dhillon 04-28-2021 influenza virus vaccine, unspecified formulation Carlos Eliseo BACKER UP-IT OPERATIONS MANAGER Work Phone: [facility] Payers Date Payer Category Payer Unknown [id number] 2021 Unknown [employer] [id number] 2021-Present [phone] [address] [place] [address] PPO [id number] 1997 Unknown [id number] 2.16.840.1.623777.3.579.2.593 1997 Unknown [id number] 2.16.840.1.325621.3.579.2.593 1997 Unknown [id number] 2.16.840.1.893446.3.579.2.593 1997 Unknown [id number] 2.16.840.1.020170.3.579.2.593 1997 Unknown [id number] 2.16.840.1.725641.3.579.2.593 1997 Unknown [id number] 2.16.840.1.477881.3.579.2.593 1997 Unknown [id number] 2.16.840.1.951616.3.579.2.593 1997 Unknown [id number] 2.16.840.1.366999.3.579.2.593 1997 Unknown [id number] 2.16.840.1.889348.3.579.2.593 1997 Unknown [id number] 2.16.840.1.768093.3.579.2.593 1997 Unknown [id number] 2.16.840.1.224020.3.579.2.593 1997 Unknown [id number] 2.16.840.1.331402.3.579.2.593 1997 Unknown [id number] 2.16.840.1.547406.3.579.2.593 1997 Unknown [id number] 2.16.840.1.278072.3.579.2.593 1997 Unknown [id number] 2.16.840.1.178440.3.579.2.593 1997 Unknown [id number] 2.16.840.1.182115.3.579.2.593 1997 Unknown [id number] 2.16.840.1.326392.3.579.2.593 1997 Unknown [id number] 2.16.840.1.065181.3.579.2.594 1997 Unknown [id number] 2.16.840.1.029242.3.579.2.594 1997 Unknown [id number] 2.16.840.1.896772.3.579.2.594 1997 Unknown [id number] 2.16.840.1.807668.3.579.2.594 1997 Unknown [id number] 2.16.840.1.067094.3.579.2.594 1997 Unknown [id number] 2.16.840.1.136193.3.579.2.594 1997 Unknown [id number] 2.16.840.1.695627.3.579.2.594 1997 Unknown [id number] 2.16.840.1.036547.3.579.2.594 1997 Unknown [id number] 2.16.840.1.037712.3.579.2.594 1997 Unknown [id number] 2.16.840.1.029047.3.579.2.594 1997 Unknown [id number] 2.16.840.1.331691.3.579.2.594 1997 Unknown [id number] 2.16.840.1.097599.3.579.2.594 1997 Unknown [id number] 2.16.840.1.156352.3.579.2.594 1997 Unknown [id number] 2.16840.1.400302.3.579.2.594 1997 Unknown [id number] 2.16.840.1.225051.3.579.2.594 1997 Unknown [id number] 2.16.840.1.909475.3.579.2.594 1997 Unknown [id number] 2.16.840.1.130805.3.579.2.594 1997 Unknown [id number] 2.16.840.1.875027.3.579.2.594 1997 Unknown [id number] 2.16.840.1.147122.3.579.2.594 1997 Unknown [id number] 2.16.840.1.048509.3.579.2.594 1997 Unknown [id number] 2.16.840.1.990351.3.579.2.594 1997 Unknown [id number] 2.16.840.1.398031.3.579.2.594 1997 Unknown [id number] 2.16.840.1.250027.3.579.2.594 1997 Unknown [id number] 2.16.840.1.030549.3.579.2.594 1997 Unknown [id number] 2.16.840.1.244947.3.579.2.594 1997 Unknown [id number] 2.16.840.1.868439.3.579.2.594 1997 Unknown [id number] 2.16.840.1.233126.3.579.2.594 1997 Unknown [id number] 2.16.840.1.971022.3.579.2.594 1997 Unknown [id number] 2.16.840.1.320388.3.579.2.125 9 1997 Unknown [id number] 2.16.840.1.859761.3.579.2.125 9 1997 Unknown [id number] 2.16.840.1.426497.3.579.2.125 9 1959 Unknown [id number] Unknown [id number] 2.16.840.1.571548.19 Social History Date Type Detail Facility Unknown if ever smoked SEAT 4a Other Start: 12-16-2022 End: 03-11-2023 Sex Assigned At [facility] Tobacco smoking stat us MIIS Tobacco smoking consumption unknown [facility] Work Phone: Start: 1995 Sex Assigned At Not on file [facility] Start: 03-19-2022 End: 04-14-2022 Tobacco smoking status MIIS Never smoked tobacco [facility] Start: 03-31-2022 End: 03-11-2023 Alcohol intake Ex-drinker (finding) [facility] Start: 03-19-2022 History SDOH Alcohol Comment last alchohol 2019; mixed drink rarely [facility] Start: 04-14-2022 Tobacco use and exposure Smokeless tobacco non-user [facility] Start: 05-12-2022 End: 08-19-2022 Exposure to SARS-CoV-2 (event) Not sure [facility] Start: 06-28-2022 End: 07-08-2022 Exposure to SARS-CoV-2 (event) Unable to assess [facility] Start: 12-16-2022 End: 03-11-2023 History of Social function [facility] Adolescent depressio n screening assessment 1 [facility] Clinical Notes 12-22-2021 to 12-10-2022 [facility] Blunt[facility] - 12/10/2022 12:30 PM Malathi Vigil, [facility] - 12/10/2022 12:30 PM EDTPatient InstructionsGrace Alexander MD - 10/22/2022 2:00 PM EDTPatient InstructionsAttachments Note Date & Type Note Facility 12-10-2022 History of Present illness Narrative Chief Complaint: Chief Complaint Patient presents with Follow-up HPI: Zainab Swift is a 27 y.o. 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 Her post-op course was uncomplicated and she was discharged home on 05/29/22. She developed watery diarrhea and tested positive for c.diff on 06/02 for which she was placed on antibiotics. Today she arrives to clinic with her . She c/o intermittent RLQ pain that radiates to pelvis. She rates her pain a 4/10 on 0 to 10 pain scale and describes as burning dull ache and reports this pain never went away and has had it prior to her appendectomy. She reports having moderate fatigue that has worsened over the past 6-8 months. Her appetite is low and has early satiety with meals and feels bloated. Her diarrhea fluctuates from 1-2x/day to 4-5x/day depending on timing of octreotide injections. She is taking tylenol as needed, she is not taking oxycodone. She follows with Dr. Snider & is receiving octreotide injections monthly, last one on 11/30/22. She had surveillance CT scans today. Current Outpatient Medications Medication Sig acetaminophen 500 MG tablet Take 1 tablet by mouth every 6 hours as needed for Mild Pain. cholecalciferol 10 MCG (400 UNIT) tablet Take 1 tablet by mouth daily. FLUoxetine 20 MG capsule Take by mouth daily. Ibuprofen 200 MG tablet Take 1 tablet by mouth every 6 hours as needed for Mild Pain. lamoTRIgine 100 MG tablet daily. Octreotide acetate 20 MG Kit injection Inject 20 mg intramuscularly every 28 days. Diagnosis code: E34.0 Ondansetron 4 MG tablet Take 1 tablet by mouth every 8 hours as needed for Nausea / Vomiting. Enoxaparin Sodium 40 MG/0.4ML injection Inject one syringe (0.4 mL) under the skin every 24 hours. (Patient not taking: Reported on 07/06/2022) Multiple Vitamin (multivitamin) capsule Take 1 capsule by mouth daily. (Patient not taking: Reported on 12/10/2022) omeprazole [address] capsule Take 20 mg by mouth as needed. (Patient not taking: Reported on 08/26/2022) oxyCODONE 5 MG tablet Take 1 tablet by mouth every 4 hours as needed for Severe Pain for up to 5 days. (Patient not taking: Reported on 07/06/2022) Pancrelipase, [id number], (Creon) [id number] units Cap DR Particles Take two caps with each meal and one cap with each snack (Patient not taking: Reported on 10/07/2022) pregabalin 75 MG capsule Take 1 capsule by mouth at bedtime. (Patient not taking: Reported on 12/10/2022) Probiotic Product (PROBIOTIC DAILY PO) Take 1 tablet by mouth daily. (Patient not taking: Reported on 08/26/2022) Allergies Allergen Reactions Gabapentin Nausea Only Medical/Surgical/Family/Social History: I have reviewed Ms. Swift's medical, surgical and other pertinent history in detail, and have updated the computerized patient record where appropriate. Review of Systems: General ROS: weight stable; negative for chills or fever; + fatigue Cardiovascular ROS: no chest pain or dyspnea on exertion Respiratory ROS: no cough, shortness of breath, or wheezing Gastrointestinal ROS: + RLQ discomfort, diarrhea, poor appetite, nausea, bloating, early satiety; negative for vomiting. Dermatological ROS: negative Physical Exam: BP 118/72 Pulse 77 Temp 97.8 F (36.6 C) (Infrared) Resp 14 Ht 1.552 m (5' 1.1 ) Comment: without shoes Wt 73.8 kg (162 lb 11.2 oz) Comment: without shoes SpO2 99% Comment: room air BMI 30.64 kg/m Smoking Status Never Wt Readings from Last 3 Encounters: 12/10/22 73.8 kg (162 lb 11.2 oz) 10/27/22 72.6 kg (160 lb) 10/22/22 71.1 kg (156 lb 12 oz) General: alert, oriented, cooperative, no distress, apears stated age Cardio: Regular rate and rhythm without murmurs, clicks, or rub Pulmonary: Clear auscultatory t/o all lobes Abdomen: Normal bowel sounds x 4. Soft. + tenderness to RLQ Incision: deferred Surgery/Procedure: 05/22/22 PROCEDURE: - Exploratory laparotomy - Resection of falciform ligament - Omentectomy - Right hemicolectomy - Radical resesection of peritoneal tumor implant (10x5cm) - Resection of small peritoneal nodules - Insertion and removal of intraperitoneal catheter - Hyperthermic intraperitoneal chemoperfusion with [facility] FINDINGS: There was mucinous implants along the RLQ, pelvis and small bowel mesentery. PCI 6. CC 0. Pathology: Pathologic Diagnosis A. Falciform ligament, excision: Benign fibroadipose tissue, negative for mucinous neoplasm or neuroendocrine tumor. B. Omentum, omentectomy: Omentum with microscopic foci of acellular mucin, see comment. Negative for neuroendocrine tumor. C. Peritoneal implant #1, excision: Cauterized peritonealized dense fibroadipose tissue with foci of acellular mucin. Negative for neuroendocrine tumor. D. Peritoneal implant #2, excision: Peritonealized dense fibroadipose tissue with foci of acellular mucin and reactive mesothelial proliferation, see comment. Negative for neuroendocrine tumor. E. Terminal ileum and right colon, right hemicolectomy: Cecum with evidence of prior appendectomy site changes, negative for residual neuroendocrine tumor or low-grade appendiceal mucinous neoplasm. Terminal ileum mesentery to foci of acellular mucin with associated reactive mesothelial proliferation. Metastatic neuroendocrine tumor identified in one of fifty regional lymph nodes (1/50). F. Peritoneal implant #3, excision: Peritonealized dense fibroadipose tissue with foci of acellular mucin, chronic inflammation and reactive mesothelial proliferation. Negative for neuroendocrine tumor. G. Peritoneal implant #4, excision: Well-differentiated neuroendocrine tumor, WHO grade 1, 4.5 mm involving the peritonealized fibroadipose tissue, see comment. Peritoneum with foci of acellular mucin and reactive mesothelial proliferation. 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 Peritoneal implants (parts C, D, F and G) and mesenteric deposits in right hemicolectomy (part E) show foci of acellular mucin without identifiable tumor cells. 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 The nodule in the peritoneal implant#4 shows tumor with diffuse expression for cytokeratin AE1/AE3 and Chromogranin supporting the above diagnosis of well-differentiated neuroendocrine tumor. The tumor shows rare cells with Ki67 expression with a proliferative index <1%, consistent with WHO grade 1. In addition one of the regional lymph nodes shows focus of metastatic neuroendocrine tumor. These findings would be consistent with pathology stage pN1/M1b. Assessment: Zainab Swift is a 27 y.o. female who is s/p ex lap, resection of falciform ligament, omentectomy, right hemicolectomy, radical resection of peritoneal tumor implant, resection of small peritoneal nodules, and HPIEC with [facility]. 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 Plan: Patient seen and evaluated by myself, all relevant available imaging and labs reviewed with MAMTA Wilcox and Dr. Baker, and the plan was developed collaboratively. 1. Follow up with medical oncology as scheduled. 2. CT scans and f/u with Dr. Baker in 3 months. Will call with any questions, concerns, or change in clinical status. MAMTA Villagran Chief Complaint: Chief Complaint Patient presents with Follow-up HPI: Zainab Swift is a 27 y.o. 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 Her post-op course was uncomplicated and she was discharged home on 05/29/22. She developed watery diarrhea and tested positive for c.diff on 06/02. Today she arrives to clinic with her . She c/o intermittent RLQ pain that radiates to pelvis. She rates her pain a 4/10 on 0 to 10 pain scale and describes as burning dull ache and reports this pain never went away and has had it prior to her appendectomy. She reports having moderate fatigue that has worsened over the past 6-8 months. Her appetite is low and has early satiety with meals and feels bloated. Her diarrhea fluctuates from 1-2x/day to 4-5x/day depending on timing of octreotide injections. She is taking tylenol as needed, she is not taking oxycodone. She follows with Dr. Snider & is receiving octreotide injections monthly, last one on 11/30/22. She had surveillance CT scans today. Current Outpatient Medications Medication Sig acetaminophen 500 MG tablet Take 1 tablet by mouth every 6 hours as needed for Mild Pain. cholecalciferol 10 MCG (400 UNIT) tablet Take 1 tablet by mouth daily. FLUoxetine 20 MG capsule Take by mouth daily. Ibuprofen 200 MG tablet Take 1 tablet by mouth every 6 hours as needed for Mild Pain. lamoTRIgine 100 MG tablet daily. Octreotide acetate 20 MG Kit injection Inject 20 mg intramuscularly every 28 days. Diagnosis code: E34.0 Ondansetron 4 MG tablet Take 1 tablet by mouth every 8 hours as needed for Nausea / Vomiting. Enoxaparin Sodium 40 MG/0.4ML injection Inject one syringe (0.4 mL) under the skin every 24 hours. (Patient not taking: Reported on 07/06/2022) Multiple Vitamin (multivitamin) capsule Take 1 capsule by mouth daily. (Patient not taking: Reported on 12/10/2022) omeprazole [address] capsule Take 20 mg by mouth as needed. (Patient not taking: Reported on 08/26/2022) oxyCODONE 5 MG tablet Take 1 tablet by mouth every 4 hours as needed for Severe Pain for up to 5 days. (Patient not taking: Reported on 07/06/2022) Pancrelipase, [id number], (Creon) [id number] units Cap DR Particles Take two caps with each meal and one cap with each snack (Patient not taking: Reported on 10/07/2022) pregabalin 75 MG capsule Take 1 capsule by mouth at bedtime. (Patient not taking: Reported on 12/10/2022) Probiotic Product (PROBIOTIC DAILY PO) Take 1 tablet by mouth daily. (Patient not taking: Reported on 08/26/2022) Allergies Allergen Reactions Gabapentin Nausea Only Medical/Surgical/Family/Social History: I have reviewed Ms. Swift's medical, surgical and other pertinent history in detail, and have updated the computerized patient record where appropriate. Review of Systems: General ROS: positive for - weight loss negative for - chills or fever Cardiovascular ROS: no chest pain or dyspnea on exertion Respiratory ROS: no cough, shortness of breath, or wheezing Gastrointestinal ROS: positive for - abdominal discomfort and diarrhea, negative for - gas/bloating, nausea Dermatological ROS: negative Physical Exam: BP 118/72 Pulse 77 Temp 97.8 F (36.6 C) (Infrared) Resp 14 Ht 1.552 m (5' 1.1 ) Comment: without shoes Wt 73.8 kg (162 lb 11.2 oz) Comment: without shoes SpO2 99% Comment: room air BMI 30.64 kg/m Smoking Status Never Wt Readings from Last 3 Encounters: 12/10/22 73.8 kg (162 lb 11.2 oz) 10/27/22 72.6 kg (160 lb) 10/22/22 71.1 kg (156 lb 12 oz) General: alessandro Cardio: alessandro Pulmonary: alessandro Abdomen: alessandro Incision: alessandro Surgery/Procedure: 05/22/22 PROCEDURE: - Exploratory laparotomy - Resection of falciform ligament - Omentectomy - Right hemicolectomy - Radical resesection of peritoneal tumor implant (10x5cm) - Resection of small peritoneal nodules - Insertion and removal of intraperitoneal catheter - Hyperthermic intraperitoneal chemoperfusion with [facility] FINDINGS: There was mucinous implants along the RLQ, pelvis and small bowel mesentery. PCI 6. CC 0. Pathology: Pathologic Diagnosis A. Falciform ligament, excision: Benign fibroadipose tissue, negative for mucinous neoplasm or neuroendocrine tumor. B. Omentum, omentectomy: Omentum with microscopic foci of acellular mucin, see comment. Negative for neuroendocrine tumor. C. Peritoneal implant #1, excision: Cauterized peritonealized dense fibroadipose tissue with foci of acellular mucin. Negative for neuroendocrine tumor. D. Peritoneal implant #2, excision: Peritonealized dense fibroadipose tissue with foci of acellular mucin and reactive mesothelial proliferation, see comment. Negative for neuroendocrine tumor. E. Terminal ileum and right colon, right hemicolectomy: Cecum with evidence of prior appendectomy site changes, negative for residual neuroendocrine tumor or low-grade appendiceal mucinous neoplasm. Terminal ileum mesentery to foci of acellular mucin with associated reactive mesothelial proliferation. Metastatic neuroendocrine tumor identified in one of fifty regional lymph nodes (1/50). F. Peritoneal implant #3, excision: Peritonealized dense fibroadipose tissue with foci of acellular mucin, chronic inflammation and reactive mesothelial proliferation. Negative for neuroendocrine tumor. G. Peritoneal implant #4, excision: Well-differentiated neuroendocrine tumor, WHO grade 1, 4.5 mm involving the peritonealized fibroadipose tissue, see comment. Peritoneum with foci of acellular mucin and reactive mesothelial proliferation. 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 Peritoneal implants (parts C, D, F and G) and mesenteric deposits in right hemicolectomy (part E) show foci of acellular mucin without identifiable tumor cells. 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 The nodule in the peritoneal implant#4 shows tumor with diffuse expression for cytokeratin AE1/AE3 and Chromogranin supporting the above diagnosis of well-differentiated neuroendocrine tumor. The tumor shows rare cells with Ki67 expression with a proliferative index <1%, consistent with WHO grade 1. In addition one of the regional lymph nodes shows focus of metastatic neuroendocrine tumor. These findings would be consistent with pathology stage pN1/M1b. Radiology: CT abd/pelvis 12/10/2022- Reviewed by Dr. Baker results pending. Assessment: Zainab Swift is a 27 y.o. female who is s/p ex lap, resection of falciform ligament, omentectomy, right hemicolectomy, radical resection of peritoneal tumor implant, resection of small peritoneal nodules, and HPIEC with [facility]. 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 She continues to improve. Still has complaints of pain. We discussed continue on a well balanced diet. Plan: Patient seen and evaluated by myself, all relevant available imaging and labs reviewed with Dr. Baker, and the plan was developed collaboratively. 1. Follow up with medical oncology as scheduled. 2. CT scans and f/u with Dr. Baker in 3 months. Orders Placed This Encounter CT ABDOMEN/PELVIS WITH CONTRAST CT CHEST WITH CONTRAST Will call with any questions, concerns, or change in clinical status. MAMTA Leal Attending Physician Note I interviewed and examined this patient with the NETWORK PROGRAMMER/fellow/resident. I reviewed the history and exam detailed in the note and have edited it as necessary. I agree with the medical decision making unless otherwise noted below. The patient is doing well. There is a stable nodule that appears to be a mesenteric lymph node. Otherwise, we spend time discussing family planning. From surgical oncology standpoint, there is no reason why her and her partner should refrain from family planning. I asked that she communicate this with the medical oncology team. We will plan to see her back in 3 months with repeat imaging. 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 Joint achy/flu like s/s, tachcardia, + HUNTER. Please evaluate and treat. Hunter positive. HISTORY OF PRESENT ILLNESS: Zainab Swift is a 27 y.o. 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 She is currently getting octreotide injections 1x month. Patient reports that she has had a long history of fatigue and generalized weakness since before her tumor diagnosis. She also reports deep aching in both her lower extremities primarily from her knees to ankles but sometimes higher. Her symptoms have been worsening for the past 6 months. She also endorses a heart racing sensation that changes with positioning (like when she's standing up) but also randomly as well as sternum pain for the past 2 months. She reports that her shortness of breath symptoms that have been chronic as well. She reports facial flushing and decreased heat tolerance as well. Going back to her pain: she reports that she also has joint pain in her ankles, knees, elbows, and shoulders on both sides. She describes the pain as achy. Tylenol and ibuprofen helps sxs somewhat. Pain is a 7/10 right now - specifaclly in her knees to ankles on both sides right now. She reports that her symptoms are primarily worse in the evenings. She denies any issues with ROM, rashes, oral ulcers, vision changes. She endorses fatigue with pyridine operator but overall able to do everything on her own. She did have diarrhea for a while, which has improved while she's been on octreotide. Allergies: Allergies Allergen Reactions Gabapentin Nausea Only Past Medical History: Diagnosis Date Anxiety Arthritis Borderline personality disorder Clostridioides difficile infection 05/2022 Depression GERD (gastroesophageal reflux disease) History of cancer Past Surgical History: Procedure Laterality Date HYPERTHERMIA BY INTRACAVITARY PROBE (HIPEC) N/A 05/22/2022 Laterality: N/A; Surgeon: Suman Baker MD, PhD; Location: [facility] MAIN OR COLECTOMY PARTIAL OPEN Right 05/22/2022 Laterality: Right; Surgeon: Suman Baker MD, PhD; Location: [facility] MAIN OR DEBULKING INTRA-ABDOMINAL/PELVIC/RETROPERIT FLEMING W/ OMENECTOMY & PELVIC PARA-AORTIC LYMPHADENECTOMY N/A 05/22/2022 Laterality: N/A; Surgeon: Suman Baker MD, PhD; Location: [facility] MAIN OR COLECTOMY PARTIAL LAPAROSCOPIC N/A 04/21/2022 Laterality: N/A; Surgeon: Suman Baker MD, PhD; Location: [facility] MAIN OR COLONOSCOPY DIAGNOSTIC 04/08/2022 APPENDECTOMY LAPAROSCOPIC 02/03/2022 [place], [place] Family History Problem Relation Age of Onset Cancer Maternal Aunt THYROID Cancer Cousin Neuroendocrine cancer Leukemia Other Leukemia Other Breast Cancer Other Cancer Other Uterine Social History Socioeconomic History Marital status: Spouse name: Not on file Number of children: Not on file Years of education: Not on file Highest education level: Not on file Occupational History Not on file Tobacco Use Smoking status: Never Smokeless tobacco: Never Substance and Sexual Activity Alcohol use: Not Currently Comment: last alchohol 2020; mixed drink rarely Drug use: Not Currently Sexual activity: Not on file Other Topics Concern Not on file Social History Narrative Not on file Social Determinants of Health Financial Resource Strain: Not on file Food Insecurity: Not on file Transportation Needs: Not on file Physical Activity: Not on file Stress: Not on file Social Connections: Not on file Intimate Partner Violence: Not on file Housing Stability: Not on file Current Outpatient Medications Medication Sig Dispense Refill Octreotide acetate 20 MG Kit injection Inject 20 mg intramuscularly every 28 days. Diagnosis code: E34.0 1 kit 11 acetaminophen 500 MG tablet Take 500 mg by mouth every 6 hours as needed for Mild Pain. (Patient not taking: Reported on 08/26/2022) cholecalciferol 10 MCG (400 UNIT) tablet Take 1 tablet by mouth daily. Cyproheptadine 4 MG tablet Take 1 tablet by mouth 4 times daily as needed for Other (flushing). Flushing: periactin 4 mg every 6 hours as needed. Will start @ night as it can cause dizziness, drowsiness 60 tablet 3 Enoxaparin Sodium 40 MG/0.4ML injection Inject one syringe (0.4 mL) under the skin every 24 hours. (Patient not taking: Reported on 07/06/2022) 10 mL 0 FLUoxetine 20 MG capsule Take 2 capsules by mouth daily. lamoTRIgine 25 MG tablet Take 2 tablets by mouth daily. Multiple Vitamin (multivitamin) capsule Take 1 capsule by mouth daily. omeprazole [address] capsule Take 20 mg by mouth as needed. (Patient not taking: Reported on 08/26/2022) Ondansetron 4 MG tablet Take 4 mg by mouth every 8 hours as needed for Nausea / Vomiting. (Patient not taking: Reported on 08/26/2022) oxyCODONE 5 MG tablet Take 1 tablet by mouth every 4 hours as needed for Severe Pain for up to 5 days. (Patient not taking: Reported on 07/06/2022) 30 tablet 0 Pancrelipase, [id number], (Creon) [id number] units Cap DR Particles Take two caps with each meal and one cap with each snack (Patient not taking: Reported on 10/07/2022) 210 capsule 1 pregabalin 75 MG capsule Take 1 capsule by mouth at bedtime. 30 capsule 11 Probiotic Product (PROBIOTIC DAILY PO) Take 1 tablet by mouth daily. (Patient not taking: Reported on 08/26/2022) No current facility-administered medications for this visit. Review Of Systems: A complete review of systems was done and was negative except for what has been described in the history of present illness. PHYSICAL EXAMINATION: VITAL SIGNS: Blood pressure 119/62, pulse 62, temperature 97.6 F (36.4 C), temperature source Oral, resp. rate 20, height 1.549 m (5' 1 ), weight 72.8 kg (160 lb 8 oz), SpO2 99 %. Body mass index is 30.33 kg/m . General appearance: well developed, well nourished, alert, and in no acute distress Head: Normocephalic, without obvious abnormality, atraumatic Eyes: conjunctivae/corneas clear. EOMI Nose: Nares normal. Mucosa normal. Neck: supple, symmetrical Lungs: normal work of breathing on room air Heart: acyanotic, no peripheral edema on exposed regions Abdomen: non-distended Skin: Skin color, texture, turgor normal, no rashes, petechiae on exposed regions Neurologic: Alert and grossly oriented, normal strength and tone. Normal coordination and gait. No focal deficits noted. REVIEW OF DATA: No visits with results within 1 Day(s) from this visit. Latest known visit with results is: Office Visit on 10/07/2022 Component Date Value Ref Range Status hs-Troponin I 10/07/2022 <3 <34 ng/L Final BNP 10/07/2022 4 0 - 100 pg/mL Final BSA 10/22/2022 1.72 m2 Final RV Long Strain 10/22/2022 -28.0 % Final FRANK (continuity Vmax) 10/22/2022 1.82 cm2 Final FRANK index (continuity Vmax) 10/22/2022 1.06 m/s Final FRANK (continuity VTI) 10/22/2022 2.24 cm2 Final FRANK index (continuity VTI) 10/22/2022 1.30 cm2/m2 Final LA ESV SP 4CH (MOD) 10/22/2022 19 mL Final LA ESV BP (MOD) 10/22/2022 29 mL Final LA ESV SP 2CH (MOD) 10/22/2022 37 mL Final LA ESV BP (MOD) index 10/22/2022 17 mL/m2 Final LV EDV SP 2CH 10/22/2022 76 mL Final LV ESV SP 2CH 10/22/2022 27 mL Final LV EDV SP 4CH 10/22/2022 61 mL Final LV ESV SP 4CH 10/22/2022 25 mL Final E/e' lateral ratio 10/22/2022 4.57 Final e' septal pk raj 10/22/2022 0.1401 m/s Final e' lateral pk raj 10/22/2022 0.1597 m/s Final Avg e' pk raj 10/22/2022 0.15 m/s Final TAPSE 10/22/2022 2.03 cm Final LA area 4CH 10/22/2022 9.33 cm2 Final LA AREA 2CH 10/22/2022 13.72 cm2 Final LV RWT 10/22/2022 0.30 Final LV EDV BP 10/22/2022 71 mL Final LV ESV BP 10/22/2022 27 mL Final EF SP 2CH 10/22/2022 64 Final EF SP 4CH 10/22/2022 59 Final BP EF 10/22/2022 62 % Final PV PK RAJ 10/22/2022 0.97 m/s Final RV S' 10/22/2022 12.55 cm/s Final Long Strain 10/22/2022 -21.7 % Final RVOT peak gradient 10/22/2022 1 mmHg Final Right atrium volume 4 chamber meth* 10/22/2022 22 mL Final RA vol index 4CH (MOD) 10/22/2022 12.79 mL/m2 Final DI (Vmax) 10/22/2022 0.70 Final E/e' septal ratio 10/22/2022 5.21 Final [facility] LV BP DIASTOLIC VOLUME IN* 10/22/2022 41.28 mL/m2 Final [facility] LV BIPLANE SYSTOLIC VOLUM* 10/22/2022 15.70 mL/m2 Final RV basal diam 10/22/2022 3.02 cm Final RV mid diam 10/22/2022 2.68 cm Final RV long diam 10/22/2022 7.35 cm Final DI (VTI) 10/22/2022 0.86 m/2 Final LVOT stroke volume index 10/22/2022 25.99 ml/m2 Final LV stroke volume BP (ml) 10/22/2022 44 mL Final LV stroke volume index BP 10/22/2022 25.58 mL/m2 Final RV Fractional area change 10/22/2022 47.3 % Final RV Area systolic 10/22/2022 11.51 cm2 Final RV Area diastolic 10/22/2022 21.85 cm2 Final LVIDD 10/22/2022 4.10 cm Final IVS 10/22/2022 0.61 cm Final PW 10/22/2022 0.61 cm Final LVIDS 10/22/2022 2.73 cm Final IVC ostium 10/22/2022 1.46 cm Final Sinus 10/22/2022 2.70 cm Final STJ 10/22/2022 2.41 cm Final Ascending aorta 10/22/2022 2.62 cm Final LV mass 10/22/2022 68.53 g Final AV mean gradient 10/22/2022 3 mmHg Final AV Velocity Ratio 10/22/2022 0.70 Final AV LVOT peak gradient 10/22/2022 3 mmHg Final MV valve area p 1/2 method 10/22/2022 3.49 cm2 Final PV peak gradient 10/22/2022 4 mmHg Final E/A ratio 10/22/2022 0.74 Final E wave decelartion time 10/22/2022 217.58 msec Final LVOT diameter 10/22/2022 1.82 cm Final LVOT area 10/22/2022 2.60 cm2 Final LVOT peak raj 10/22/2022 0.88 m/s Final LVOT peak VTI 10/22/2022 17.19 cm Final Ao peak raj 10/22/2022 1.26 m/s Final Ao VTI 10/22/2022 19.98 cm Final RVOT peak raj 10/22/2022 0.59 m/s Final LVOT stroke volume 10/22/2022 45 cm3 Final AV peak gradient 10/22/2022 6 mmHG Final Avg E/e' ratio 10/22/2022 4.89 Final MV pk E raj 10/22/2022 0.73 m/s Final MV stenosis pressure 1/2 time 10/22/2022 63.10 ms Final MV pk A raj 10/22/2022 0.98 m/s Final LV Mass Index 10/22/2022 39.8 g/m2 Final Stroke Volume 10/22/2022 45 cm/mL Final Stroke volume index 10/22/2022 26 Final [facility] AV VTI RATIO PRE STRESS 10/22/2022 0.86 Final e' septal pk raj 10/22/2022 0.14 m/s Final e' lateral pk raj 10/22/2022 0.16 m/s Final FS 10/22/2022 33 28 - 44 % Final AV valve area 10/22/2022 2.24 cm2 Final IMPRESSION: Zainab Swift is a 27 y.o. 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 Her tachycardia appears to be consistent with POTS/Dysautonomia. Regarding her joint pains and muscle pains, her symptoms are likely consistent with fibromyalgia. HUNTER is likely non-specific and not indicative of underlying rheumatological disorder at this time based on her current symptoms. - Recommend trying Lyrica at bedtime for pain - Currently on fluoxetine and Lamictal for mood - would continue with this regimen for now as recently started, but could consider cymbalta to help with pain in the future - Dr. Suero has reached out to pt's medical team regarding POTs/Dysautonomia and next steps - Please read Dr. 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 Plan was reviewed and discussed with Chayo Suero MD I saw Zainab Swift with Dr. Alexander. I have performed my own history and exam. We developed the assessment and plan together. I agree with the history, review of systems, exam and assessment and plan as documented in Dr. Alexander note. 27 y.o. w/ hx appendical cancer s/p octreotide here for HUNTER+ with symptoms consistent with POTs and concerned for fibromyalgia nad small fiber neuropathy and will discuss with cardiooncology ANA_= The patient has a positive HUNTER. Based on testing, approximately 5% of the [place] population will have a positive HUNTER, but only a vast minority of these individuals will have a true autoimmune disease. Although it is a relatively abnormal finding, a positive HUNTER in itself does not suggest a particular disease. It can also occur in non-rheumatic conditions. It should not be used as a screening test for rheumatic disease. This particular patient has no obvious signs of connective tissue disease. Because her HUNTER titer is 1:160 with dysautonomia , I do not hink further testing Is neded - I would try lyrica at night , -consider cymbalta -her mood is better on flouxetine 40 and lamictal and this has only been stable for 2 months -- thus maybe the switch to cymbalta can happen later -we will discuss after oncology further treatments Chronic immunosuppressants with the evidence we have does not help with POTs symptoms REviewed all blood work and labs and discussed with oncology and cardiology Chayo Suero MD documented in this encounter [facility] 10-22-2022 Instructions Chayo Suero MD - 10/22/2022 2:00 PM EDT Images from the original note were not included. Read about POTS/Dysautonomia Try lyrica at night I am your Rheumatology Clinic Nurse today. My name is JORGE Abraham, RN. It was my pleasure caring for your nursing needs today. Go to [email or web address] for more helpful information regarding your rheumatology diagnosis. Good Hand Washing When you are ill or have an injury, you are at greater risk for infection than when you are well. One of the best things you can do to protect yourself and others is careful and frequent hand washing. It also is very important for your caregivers and visitors to wash their hands. Speak up and ask your health care team, caregivers, and visitors if they have washed their hands before they touch you. Ask the question any time someone is about to touch you or before touching things that may be used in your care. This may be in your room or anywhere else in the healthcare setting. Many home care procedures are done by the patient or family member. Hand washing is always the first and last step. Hand washing is needed even if gloves are worn. Your doctor or nurse will tell you if gloves are needed. Many procedures can be safely done without using gloves, but hand washing must always be a part of any care. How to Wash Your Hands 1. Turn on the water to warm. Adjust the flow so the water does not splash. 2. Wet your hands. 3. Rub soap over your wet hands. It is best to use liquid soap. 4. Lather the palms, the back of your hands and wrist. Rub your hands together on all sides, between your fingers and around your nails for at least 20-30 seconds. 5. You may use a nail brush or old toothbrush to clean under and around your nails. 6. Rinse your hands well with warm water, leave the water running. 7. Dry your hands with a paper towel or clean towel. Use the towel in your hand to turn off the water. This keeps your clean hand from touching the faucet handle, which is not clean. Alcohol Hand Rub Alcohol hand rub, also called hand high raw sugar boiler, can be used instead of soap and water if your hands do not look dirty or soiled. To clean your hands with the alcohol rub, put enough on your hands to moisten both hands front and back, and all your fingers. Rub the liquid briskly over the front and back of your hands and between your fingers like you wash your hands. Rub until they are dry, atleast 20-30 seconds. [facility]. This handout is for informational purposes only. Talk with your doctor or healthcare team if you have any questions about your care. For more health information call the Library for Health Information at [phone] or email: [email or web address]. documented in this encounter [facility] 10-22-2022 History of Present illness Narrative Intravenous access obtained and remained for next appointment in cardioology at [facility]. 22 gauge IV in left ac. Dressing intact and/or coban used to secure access. Patient instructed to report directly to next appointment. documented in this encounter [facility] 10-07-2022 Note Acute Coronary Syndr ome (ACS): Initial Evaluation and Management: [email or web address] [facility] 10-07-2022 History of Present illness Narrative Images from the original note were not included. HISTORY OF PRESENT ILLNESS: Zainab Swift is a 27 y.o. 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 Patient is referred to endocrine oncology clinic by Dr. Baker. Hx of acid reflux/burning pain for 10y, started PPI prn about 5y ago borderline mood disorder/anxiety/depression. 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 Usually 12-24h, and followed by sharp/burning pain and went away without medication, sporadic, > once a month, never got medical attention. Not a/w food or notes any triggering. 02/03/2022 CT a/p w/c (no comparison) for RLQ abdominal pain 1. Suspect acute appendicitis with mild adjacent inflammatory changes. 2. Suspect enlarged left ovarian cyst, 2.9 cm; of uncertain clinical significance. 02/03/2022 laparoscopic appendectomy [facility] path: Appendix, appendectomy: -Low grade appendiceal mucinous neoplasm (LAMN) -Well differentiated neuroendocrine tumor (carcinoid tumor) The low grade appendiceal mucinous neoplasm is located at the distal end with surface disruption. The tumor measures 3.5cm in size, penetrates through the appendiceal wall and present at the serosal surface. The well differentiate NET is located at the proximal half. It measures 2.2cm in size, and invades into subserosa and mesoappendiceal adipose tissue, with focal lymphovascular invasion and perineural invasion. The resection margin is focally positive for well differentiated NET, but negative for low grade mucinous neoplasm. Immunohistochemical studies: the well differentiated NET positive for cytokeratin AE1/AE3(cytoplasm stain), synaptophysin and chromogranin. Ki67 is <3%. Immunostain for CD31 and D2-40 were also used for evaluation 03/19/2022 initiate visit with [facility] team Dr. Baker 03/31/2022 CT chest: a small subpleural nodule in the left lower lobe, favored to represent a benign intrapulmonary lymph node; otherwise, unrevealing CT a/p w/c c/t 02/03/2022: unrevealing 04/21/2022 DIAGNOSTIC LAPAROSCOPY WITH BIOPSY Intraop finding: On inspection, there was a pool of mucin in the pelvis. This was suctioned and sent for cytology. In addition, there were mucinous implants in the peritoneum overlying the iliac vessels. This was biopsied and sent for pathology. Examination of the bilateral ovaries did not reveal significant involvement with the mucin and there were absence of any tumor implants. Rest of the abdominal cavity was free of mucin or any evidence of peritoneal carcinomatosis. [facility] path A. Peritoneum, biopsy: Fibrovascular connective tissue with acellular mucin, reactive mesothelium and histiocytic aggregates (see Comment) COMMENT: Immunostains are performed for further evaluation. AE1/3 is negative for carcinoma cells. Chromogranin is negative. CD163 and calretinin highlight histiocytes and mesothelium respectively. Ki67 shows scattered positive cells, consistent with inflammatory and reactive mesothelial cells. 04/21/2022 [facility] cytology A. PERITONEAL FLUID (CYTOLOGY AND CELL BLOCK): FINAL DIAGNOSIS: Acellular Mucin Present. Note: Immunostains for BerEP4 and MOC31 are negative and immunostain for Calretinin highlights mesothelial cells. 05/22/2022 - Exploratory laparotomy by Dr. Baker - Resection of falciform ligament - Omentectomy - Right hemicolectomy - Radical resesection of peritoneal tumor implant (10x5cm) - Resection of small peritoneal nodules - Insertion and removal of intraperitoneal catheter - Hyperthermic intraperitoneal chemoperfusion with MMC Intraop finding: Examination of the abdominal cavity revealed mucinous implants in the RLQ, pelvis and in the distal small bowel mesentery. PCI was graded at 6. [facility] path: A. Falciform ligament, excision: Benign fibroadipose tissue, negative for mucinous neoplasm or neuroendocrine tumor. B. Omentum, omentectomy: Omentum with microscopic foci of acellular mucin, see comment. Negative for neuroendocrine tumor. C. Peritoneal implant #1, excision: Cauterized peritonealized dense fibroadipose tissue with foci of acellular mucin. Negative for neuroendocrine tumor. D. Peritoneal implant #2, excision: Peritonealized dense fibroadipose tissue with foci of acellular mucin and reactive mesothelial proliferation, see comment. Negative for neuroendocrine tumor. E. Terminal ileum and right colon, right hemicolectomy: Cecum with evidence of prior appendectomy site changes, negative for residual neuroendocrine tumor or low-grade appendiceal mucinous neoplasm. Terminal ileum mesentery to foci of acellular mucin with associated reactive mesothelial proliferation. Metastatic neuroendocrine tumor identified in one of fifty regional lymph nodes (1/50). F. Peritoneal implant #3, excision: Peritonealized dense fibroadipose tissue with foci of acellular mucin, chronic inflammation and reactive mesothelial proliferation. Negative for neuroendocrine tumor. G. Peritoneal implant #4, excision: Well-differentiated neuroendocrine tumor, WHO grade 1, 4.5 mm involving the peritonealized fibroadipose tissue, see comment. Peritoneum with foci of acellular mucin and reactive mesothelial proliferation. 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 Peritoneal implants (parts C, D, F and G) and mesenteric deposits in right hemicolectomy (part E) show foci of acellular mucin without identifiable tumor cells. 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 The nodule in the peritoneal implant#4 shows tumor with diffuse expression for cytokeratin AE1/AE3 and Chromogranin supporting the above diagnosis of well-differentiated neuroendocrine tumor. The tumor shows rare cells with Ki67 expression with a proliferative index <1%, consistent with WHO grade 1. In addition one of the regional lymph nodes shows focus of metastatic neuroendocrine tumor. These findings would be consistent with pathology stage pN1/M1b. 06/02/2022 bloody/lobo color stool, no blood clot 06/03/2022 - diff + 07/08/2022 [facility] visit with [facility] Chief Complaint Patient presents with Follow-up Primary malignant neuroendocrine tumor of appendix Other 09/09 first Octreotide injection, since has flu like symptoms. No fever, achy muscle/bone, swollen lymph nodes. No congestion or cough. Went to PCP for mono, COVID, and FLU all negative. Asking if related to injection. Injection did improve diarrhea significantly a week after injection Hasn't started Creon Abdominal Pain Mid Abd pain following each injection lasting 8 hr. Stool changes, romana color and mucus first few days following each injection Nausea Ongoing nausea intermittent, no vomiting Chest Pain Chest pain, SOB, increased HR 120-140. Multiple episodes per day lasting few hours. Dizziness. Ms. Swift is here for toxicity check while being on SSA. The above complaints were verified Zainab reports: Surgical site healing ok. She denies being . About to start her cycle. She took test 3d ago. Nausea daily without emesis stable. More bloated. Able to pass gas. Bubbling stomach after eating, improved. More diarrhea now 4-5t/d loose/soft BM improved one week after SSA, down to 1-2t/d solid BM. Denies hematemesis, melena or hematochezia The patient denies wheezing. Flushing improved. Tachycardia/SOB. She is getting a 3d-holter monitor per PCP Breastbone pressure pain noted last week, x 3, lasting an hour. Worse when bending. SOB, palpitation. Left shoulder pain with palpable LNs noted on left inferior lateral neck. Mid-abd pain radiating to right flank/back. Pt alternates Ibuprofen and tylenol for the above pain. Low energy level/fatigue with independent ADLs, able to do housework. 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 Eating ok. Weight loss noted. Recent thyroid panel done with negative results per pt's subjective report. HUNTER + test on 09/04/2022, she was referred to see local rheumatology ECOG PS: 1 BP 120/74 (BP Location: Left arm, BP Position: Sitting) Pulse 81 Temp 98.2 F (36.8 C) (Oral) Resp 16 Ht 1.575 m (5' 2 ) Wt 71.1 kg (156 lb 11.2 oz) SpO2 99% BMI 28.66 kg/m Smoking Status Never Wt Readings from Last 3 Encounters: 10/07/22 71.1 kg (156 lb 11.2 oz) 07/08/22 71.3 kg (157 lb 1.6 oz) 06/09/22 72.7 kg (160 lb 3.2 oz) No LMP recorded. A review of systems was performed with the patient at today's patient and is negative except for those items mentioned in the interval history and those items mentioned below as well as in the nursing documentation review of systems. Fatigue: Fatigue not relieved by rest OR limiting instrumental ADL Nausea: Loss of appetite without alteration in eating habits Vomiting: Absent or within normal limits Anorexia: Absent or within normal limits Diarrhea: Increase of less than 4 stools per day over baseline OR mild increase in ostomy output compared to baseline Constipation: Absent or within normal limits Peripheral Motor Neuropathy: Absent or within normal limits Depression: Absent or within normal limits Dyspnea: Shortness of breath with moderate exertion Rash Maculo-Papular: Absent or within normal limits Palmar-Plantar Erythrodysesthesia Syndrome: Absent or within normal limits Pain: Mild pain Fever: Absent or within normal limits Localized Edema: Absent or within normal limits is allergic to gabapentin. Current Outpatient Medications Medication Sig Dispense Refill cholecalciferol 10 MCG (400 UNIT) tablet Take 1 tablet by mouth daily. Cyproheptadine 4 MG tablet Take 1 tablet by mouth 4 times daily as needed for Other (flushing). Flushing: periactin 4 mg every 6 hours as needed. Will start @ night as it can cause dizziness, drowsiness 60 tablet 3 FLUoxetine 20 MG capsule Take 2 capsules by mouth daily. lamoTRIgine 25 MG tablet Take 2 tablets by mouth daily. Multiple Vitamin (multivitamin) capsule Take 1 capsule by mouth daily. Octreotide acetate 20 MG Kit injection Inject 20 mg intramuscularly every 28 days. Diagnosis code: E34.0 1 kit 11 acetaminophen 500 MG tablet Take 500 mg by mouth every 6 hours as needed for Mild Pain. (Patient not taking: Reported on 08/26/2022) Enoxaparin Sodium 40 MG/0.4ML injection Inject one syringe (0.4 mL) under the skin every 24 hours. (Patient not taking: Reported on 07/06/2022) 10 mL 0 Gabapentin (Neurontin) 100 MG capsule Take 2 capsules by mouth 3 times daily. (Patient not taking: Reported on 10/07/2022) 180 capsule 1 omeprazole [address] capsule Take 20 mg by mouth as needed. (Patient not taking: Reported on 08/26/2022) Ondansetron 4 MG tablet Take 4 mg by mouth every 8 hours as needed for Nausea / Vomiting. (Patient not taking: Reported on 08/26/2022) oxyCODONE 5 MG tablet Take 1 tablet by mouth every 4 hours as needed for Severe Pain for up to 5 days. (Patient not taking: Reported on 07/06/2022) 30 tablet 0 Pancrelipase, Wfi-Fdue-Ymwm, (Creon) 40374-086350 units Cap DR Particles Take two caps with each meal and one cap with each snack (Patient not taking: Reported on 10/07/2022) 210 capsule 1 Probiotic Product (PROBIOTIC DAILY PO) Take 1 tablet by mouth daily. (Patient not taking: Reported on 08/26/2022) No current facility-administered medications for this visit. Past Medical History: Diagnosis Date Anxiety Arthritis Borderline personality disorder Clostridioides difficile infection 05/2022 Depression GERD (gastroesophageal reflux disease) History of cancer Past Surgical History: Procedure Laterality Date HYPERTHERMIA BY INTRACAVITARY PROBE (HIPEC) N/A 05/22/2022 Laterality: N/A; Surgeon: Suman Baker MD, PhD; Location[facility] COLECTOMY PARTIAL OPEN Right 05/22/2022 Laterality: Right; Surgeon: Suman Baker MD, PhD; Location: [facility] MA[facility] OR DEBULKING INTRA-ABDOMINAL/PELVIC/RETROPERIT FLEMING W/ OMENECTOMY & PELVIC PARA-AORTIC LYMPHADENECTOMY N/A 05/22/2022 Laterality: N/A; Surgeon: Suman Baker MD, PhD; Location: [facility] OR COLECTOMY PARTIAL LAPAROSCOPIC N/A 04/21/2022 Laterality: N/A; Surgeon: Suman Baker MD, PhD; Location: [facility] MA[facility] OR COLONOSCOPY DIAGNOSTIC 04/08/2022 APPENDECTOMY LAPAROSCOPIC 02/03/2022 [place], [place] Past medical, surgical, family, and social histories as well as allergies were all reviewed and unchanged except the above ones mentioned. PHYSICAL EXAMINATION: General: Patient is in no acute distress. Patient is alert, oriented to person, place and time. HEENT: Head atraumatic, normocephalic. Gross vision intact. Eyes are nonicteric. Neck: supple, symmetrical, no adenopathy, no tenderness/mass/nodules. Lungs: Clear to auscultation bilaterally. No rales or wheezing. Heart: S1/S2 normal, no murmurs, gallops or rub. Regular heart rate and rhythm. Abdomen: Soft, nontender, non distended, Normoactive bowel sounds present. No palpable masses. Well healed vertical surgical scar Extremities: Warm, well perfused. No edema. Skin: Warm and dry with good skin turgor. No rash. Lymph nodes: No lymphadenopathy palpable on neck/supraclavicle. Neurologic: No focal deficits, grossly intact. IMAGING STUDIES: No new restaging scans for this visit LABS: Lab results have been reviewed, analyzed and discussed with the patient CMP Lab Results Component Value Date SODIUM 137 10/07/2022 POTASSIUM 4.0 10/07/2022 CHLORIDE 101 10/07/2022 CO2 28 10/07/2022 BUN 9 10/07/2022 CREATSERUM 0.66 10/07/2022 GLUCOSE 103 (H) 10/07/2022 CALCIUM 9.5 10/07/2022 ALT 25 10/07/2022 AST 16 10/07/2022 ALKPHOS 53 10/07/2022 BILITOTAL 0.4 10/07/2022 BILIDIRECT 0.2 05/22/2022 ALBUMIN 4.7 10/07/2022 CBC Lab Results Component Value Date WBC 7.16 10/07/2022 HGB 12.5 10/07/2022 HCT 39.3 10/07/2022 PLATELET 355 10/07/2022 MCV 84.2 10/07/2022 Lab Results Component Value Date CALCITONIN <1.89 07/08/2022 GASTRIN 21 07/08/2022 CHROMOGRANA 25 07/08/2022 IMPRESSION & PLAN: 27 y.o. 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 grade 1 appendiceal neuroendocrine tumor Improved diarrhea, will continue SSA monthly locally We discussed to add creon if worsening gas/steatorrhea. CT/RTC in November as is Tachycardia/dyspnea: --holter monitor per PCP --BNP/troponin neg --ECHO to r/o carcinoid heart disease --cardiology referral Sternal site pain in setting of thymic uptake on Ga PET: CT chest Palpable LN per pt: CT neck given her young age and LAMN/NET finding. Likely reactive. + HUNTER: rheumatology referral Nausea: unknown etiology: continue antiemetics. Will also try PPI 4-6w. Regroup with Dr. Ortega about the above workup. Low grade appendiceal mucinous neoplasm (LAMN): S/p radical resection of peritoneal tumor implants, resection of small peritoneal nodules, and administration of HIPEC with mitomycin C. f/up with Dr. Baker. The patient had a number of questions which were answered to the best of our ability and to her apparent satisfaction. The patient is agreeable with the plan of care. Of course, in the interim, she is instructed to contact us with any questions, concerns, or any new or worsening symptoms. Yudelka Moralez APRN-IT OPERATIONS MANAGER Endocrine Tumor Program [facility] To discuss with Dr. Ortega documented in this encounter [facility] 10-07-2022 Instructions Johana Lutz RN - 10/07/2022 11:30 AM EDT Return to clinic: with Dr. Ortega (video) to regroup on 11/05, (after the following tests), Zainab, if tests neg and you feel good, let us know so we can cancel the visit. Scans/labs: ECHO/CT N/C next available. F/up troponin/BNP from today Treatment: [facility] locally Referrals: Cardiology referral Referral to rheumatology Dr. Suero due to + HUNTER (09/04/2022) Abdominal binder script to Zainab Thank you for choosing [facility] for your cancer care. FMLA/Disability forms: Please allow up to 2 weeks for the forms to be returned to you +++ should you need any FMLA, Short term disability or [employer] disability forms filled out please fax them to (f) [phone] ++++ Refill requests: Please allow 24-48 hours for a response My chart message response: PLEASE DO NOT SEND IN URGENT/EMERGENT MESSAGES VIA MY CHART. Please allow up to 24-48 hours for a response via my chart. Should you have questions or concerns, please call [phone] documented in this encounter [facility] 07-08-2022 History of Present illness Narrative Images from the original note were not included. HISTORY OF PRESENT ILLNESS: Zainab Swift is a 27 y.o. 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 Patient is referred to endocrine oncology clinic by Dr. Baker. Hx of acid reflux/burning pain for 10y, started PPI prn about 5y ago borderline mood disorder/anxiety/depression. 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 Usually 12-24h, and followed by sharp/burning pain and went away without medication, sporadic, > once a month, never got medical attention. Not a/w food or notes any triggering. 02/03/2022 CT a/p w/c (no comparison) for RLQ abdominal pain 1. Suspect acute appendicitis with mild adjacent inflammatory changes. 2. Suspect enlarged left ovarian cyst, 2.9 cm; of uncertain clinical significance. 02/03/2022 laparoscopic appendectomy [facility] path: Appendix, appendectomy: -Low grade appendiceal mucinous neoplasm (LAMN) -Well differentiated neuroendocrine tumor (carcinoid tumor) The low grade appendiceal mucinous neoplasm is located at the distal end with surface disruption. The tumor measures 3.5cm in size, penetrates through the appendiceal wall and present at the serosal surface. The well differentiate NET is located at the proximal half. It measures 2.2cm in size, and invades into subserosa and mesoappendiceal adipose tissue, with focal lymphovascular invasion and perineural invasion. The resection margin is focally positive for well differentiated NET, but negative for low grade mucinous neoplasm. Immunohistochemical studies: the well differentiated NET positive for cytokeratin AE1/AE3(cytoplasm stain), synaptophysin and chromogranin. Ki67 is <3%. Immunostain for CD31 and D2-40 were also used for evaluation 03/19/2022 initiate visit with [facility] surgical team Dr. Baker 03/31/2022 CT chest: a small subpleural nodule in the left lower lobe, favored to represent a benign intrapulmonary lymph node; otherwise, unrevealing CT a/p w/c c/t 02/03/2022: unrevealing 04/21/2022 DIAGNOSTIC LAPAROSCOPY WITH BIOPSY Intraop finding: On inspection, there was a pool of mucin in the pelvis. This was suctioned and sent for cytology. In addition, there were mucinous implants in the peritoneum overlying the iliac vessels. This was biopsied and sent for pathology. Examination of the bilateral ovaries did not reveal significant involvement with the mucin and there were absence of any tumor implants. Rest of the abdominal cavity was free of mucin or any evidence of peritoneal carcinomatosis. [facility] path A. Peritoneum, biopsy: Fibrovascular connective tissue with acellular mucin, reactive mesothelium and histiocytic aggregates (see Comment) COMMENT: Immunostains are performed for further evaluation. AE1/3 is negative for carcinoma cells. Chromogranin is negative. CD163 and calretinin highlight histiocytes and mesothelium respectively. Ki67 shows scattered positive cells, consistent with inflammatory and reactive mesothelial cells. 04/21/2022 [facility] cytology A. PERITONEAL FLUID (CYTOLOGY AND CELL BLOCK): FINAL DIAGNOSIS: Acellular Mucin Present. Note: Immunostains for BerEP4 and MOC31 are negative and immunostain for Calretinin highlights mesothelial cells. 05/22/2022 - Exploratory laparotomy by Dr. Baker - Resection of falciform ligament - Omentectomy - Right hemicolectomy - Radical resesection of peritoneal tumor implant (10x5cm) - Resection of small peritoneal nodules - Insertion and removal of intraperitoneal catheter - Hyperthermic intraperitoneal chemoperfusion with MMC Intraop finding: Examination of the abdominal cavity revealed mucinous implants in the RLQ, pelvis and in the distal small bowel mesentery. PCI was graded at 6. [facility] path: A. Falciform ligament, excision: Benign fibroadipose tissue, negative for mucinous neoplasm or neuroendocrine tumor. B. Omentum, omentectomy: Omentum with microscopic foci of acellular mucin, see comment. Negative for neuroendocrine tumor. C. Peritoneal implant #1, excision: Cauterized peritonealized dense fibroadipose tissue with foci of acellular mucin. Negative for neuroendocrine tumor. D. Peritoneal implant #2, excision: Peritonealized dense fibroadipose tissue with foci of acellular mucin and reactive mesothelial proliferation, see comment. Negative for neuroendocrine tumor. E. Terminal ileum and right colon, right hemicolectomy: Cecum with evidence of prior appendectomy site changes, negative for residual neuroendocrine tumor or low-grade appendiceal mucinous neoplasm. Terminal ileum mesentery to foci of acellular mucin with associated reactive mesothelial proliferation. Metastatic neuroendocrine tumor identified in one of fifty regional lymph nodes (1/50). F. Peritoneal implant #3, excision: Peritonealized dense fibroadipose tissue with foci of acellular mucin, chronic inflammation and reactive mesothelial proliferation. Negative for neuroendocrine tumor. G. Peritoneal implant #4, excision: Well-differentiated neuroendocrine tumor, WHO grade 1, 4.5 mm involving the peritonealized fibroadipose tissue, see comment. Peritoneum with foci of acellular mucin and reactive mesothelial proliferation. 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 Peritoneal implants (parts C, D, F and G) and mesenteric deposits in right hemicolectomy (part E) show foci of acellular mucin without identifiable tumor cells. 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 The nodule in the peritoneal implant#4 shows tumor with diffuse expression for cytokeratin AE1/AE3 and Chromogranin supporting the above diagnosis of well-differentiated neuroendocrine tumor. The tumor shows rare cells with Ki67 expression with a proliferative index <1%, consistent with WHO grade 1. In addition one of the regional lymph nodes shows focus of metastatic neuroendocrine tumor. These findings would be consistent with pathology stage pN1/M1b. 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 Baker Most recent surgery 05/22/22--recovering well but slowly Lab Review Labs completed today prior to appt Other C-diff infection just finished course of vancomycin During the interview today, pt reports: Surgical site healing ok. Stiffness with position change, not bothersome. Low energy level/fatigue with independent ADLs, able to do housework. She does go shopping and get drained very quickly and requires nap. 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 Better appetite with oral intake Weight loss of 14lb since Nov surgery, but now gaining some back. The patient denies wheezing/chest pain. However, SOB on exertion. albuterol prn relieved some. No pulmonary function test done. Flushing neck to face, without sweat, 1-2t/d, lasting 30m-one hour, noted for a few years, progressively worsening. More noticeable of worsening intensity since Nov surgery. Not on any meds to control flushing. A/w +palpitations/lightheadedness always. EKG done with normal finding. No additional tests done. Alternation of constipation and Bouts of diarrhea soft BM bid, 2d/w for one year, manageable. No incontinence. Unchanged bowel pattern after 1st surgery. Liquid BM noted immediately postop in Nov., gradually worsening up to 10-15t/d. 3-4t/d mixed with soft/liquid BM. No foul smell ever. Completed vancomycin 10d 2nd round yesterday. Had 1st round vancomycin and flared up so she had 2nd round vancomycin 5d after 1st round. Denies steatorrhea, hematemesis, melena Hematochezia resolved. +gasy/bloating. ECOG PS: 1 BP 121/77 (BP Location: Left arm, BP Position: Sitting) Pulse 73 Temp 98 F (36.7 C) (Oral) Resp 16 Ht 1.575 m (5' 2 ) Wt 71.3 kg (157 lb 1.6 oz) SpO2 98% BMI 28.73 kg/m Smoking Status Never Wt Readings from Last 3 Encounters: 07/08/22 71.3 kg (157 lb 1.6 oz) 06/09/22 72.7 kg (160 lb 3.2 oz) 05/22/22 76.2 kg (168 lb) No LMP recorded. A review of systems was performed with the patient at today's patient and is negative except for those items mentioned in the interval history and those items mentioned below as well as in the nursing documentation review of systems. Fatigue: Fatigue not relieved by rest OR limiting instrumental ADL Nausea: Absent or within normal limits Vomiting: Absent or within normal limits Anorexia: Absent or within normal limits Diarrhea: Increase of less than 4 stools per day over baseline OR mild increase in ostomy output compared to baseline Constipation: Absent or within normal limits Peripheral Motor Neuropathy: Absent or within normal limits Depression: Mild depressive symptoms Dyspnea: Absent or within normal limits Rash Maculo-Papular: Absent or within normal limits Palmar-Plantar Erythrodysesthesia Syndrome: Absent or within normal limits Pain: Mild pain Fever: Absent or within normal limits Localized Edema: Absent or within normal limits has No Known Allergies. Current Outpatient Medications Medication Sig Dispense Refill acetaminophen 500 MG tablet Take 500 mg by mouth every 6 hours as needed for Mild Pain. omeprazole [address] capsule Take 20 mg by mouth as needed. Ondansetron 4 MG tablet Take 4 mg by mouth every 8 hours as needed for Nausea / Vomiting. Probiotic Product (PROBIOTIC DAILY PO) Take 1 tablet by mouth daily. Enoxaparin Sodium 40 MG/0.4ML injection Inject one syringe (0.4 mL) under the skin every 24 hours. (Patient not taking: Reported on 07/06/2022) 10 mL 0 oxyCODONE 5 MG tablet Take 1 tablet by mouth every 4 hours as needed for Severe Pain for up to 5 days. (Patient not taking: Reported on 07/06/2022) 30 tablet 0 Vancomycin 125 MG capsule Take 125 mg by mouth 4 times daily. (Patient not taking: Reported on 07/08/2022) No current facility-administered medications for this visit. Past Medical History: Diagnosis Date Anxiety Borderline personality disorder Clostridioides difficile infection 05/2022 Depression GERD (gastroesophageal reflux disease) History of cancer Past Surgical History: Procedure Laterality Date HYPERTHERMIA BY INTRACAVITARY PROBE (HIPEC) N/A 05/22/2022 Laterality: N/A; Surgeon: Suman Baker MD, PhD; Location: [facility] MA[facility] OR COLECTOMY PARTIAL OPEN Right 05/22/2022 Laterality: Right; Surgeon: Suman Baker MD, PhD; Location: [facility] MA[facility] OR DEBULKING INTRA-ABDOMINAL/PELVIC/RETROPERIT FLEMING W/ OMENECTOMY & PELVIC PARA-AORTIC LYMPHADENECTOMY N/A 05/22/2022 Laterality: N/A; Surgeon: Suman Baker MD, PhD; Location: [facility] MAIN OR COLECTOMY PARTIAL LAPAROSCOPIC N/A 04/21/2022 Laterality: N/A; Surgeon: Suman Baker MD, PhD; Location: [facility] MAIN OR COLONOSCOPY DIAGNOSTIC 04/08/2022 APPENDECTOMY LAPAROSCOPIC 02/03/2022 [place], [place] Social History Socioeconomic History Marital status: Spouse name: Not on file Number of children: Not on file Years of education: Not on file Highest education level: Not on file Occupational History Not on file Tobacco Use Smoking status: Never Smokeless tobacco: Never Substance and Sexual Activity Alcohol use: Not Currently Comment: last alchohol 2019; mixed drink rarely Drug use: Not Currently Sexual activity: Not on file Other Topics Concern Not on file Social History Narrative Not on file Social Determinants of Health Financial Resource Strain: Not on file Food Insecurity: Not on file Transportation Needs: Not on file Physical Activity: Not on file Stress: Not on file Social Connections: Not on file Intimate Partner Violence: Not on file Housing Stability: Not on file family history includes Breast Cancer in an other family member; Cancer in her cousin, maternal aunt, and another family member; Leukemia in some other family members. Family Hx: Family cancer history Mother's cousin had NET (unknown primary), mets to bone, onset age 34y, @ 39y, Mgreataunts had uterine/breast ca/leukemia, onset age in 30-40s. Bethany has thyroid cancer onset age @ 45y No family history suggestive of MEN-1 syndrome. Living with @ home Children: no Social Hx: Smoking: no Alcohol: not any more, social up to 2y ago. Recreational drug use: no Chemical/radiation exposure: no PHYSICAL EXAMINATION: Patient is in no acute distress. Patient is alert, oriented to person, place and time. HEENT: Head atraumatic, normocephalic. Gross vision intact. Eyes are nonicteric. Oral cavity with moist mucous membranes, no lesions or exudates. Neck: supple, symmetrical, no adenopathy, no tenderness/mass/nodules. Lungs: Clear to auscultation bilaterally. No rales or wheezing. Heart: S1/S2 normal, no murmurs, gallops or rub. Regular heart rate and rhythm. Abdomen: Soft, nontender, non distended, Normoactive bowel sounds present. no hepatomegaly, no palpable masses. Well healed vertical surgical scar Extremities: Warm, well perfused. No edema. Skin: Warm and dry with good skin turgor. No rash. Lymph nodes: No lymphadenopathy. Neurologic: No focal deficits, grossly intact. IMAGING STUDIES: See HPI Imaging results have been reviewed, analyzed and discussed with the patient by Dr. Ortega.. LABS: Lab results have been reviewed, analyzed and discussed with the patient CMP Lab Results Component Value Date SODIUM 139 07/08/2022 POTASSIUM 4.2 07/08/2022 CHLORIDE 103 07/08/2022 CO2 28 07/08/2022 BUN 8 07/08/2022 CREATSERUM 0.69 07/08/2022 GLUCOSE 93 07/08/2022 CALCIUM 9.8 07/08/2022 ALT 88 (H) 07/08/2022 AST 42 (H) 07/08/2022 ALKPHOS 67 07/08/2022 BILITOTAL 0.5 07/08/2022 BILIDIRECT 0.2 05/22/2022 ALBUMIN 4.7 07/08/2022 CBC Lab Results Component Value Date WBC 5.81 07/08/2022 HGB 12.2 07/08/2022 HCT 38.1 07/08/2022 PLATELET 273 07/08/2022 MCV 83.2 07/08/2022 No results found for: TSH, TSHULTRASEN, THYROGLOBULI, CALCITONIN, CEA, CORTISOL, ACTH, ALDOSTERPLA, PANCREASTATI, PANCPOLYP, GASTRIN, GLUCAGON, CPEPTIDE, INSULNGRFAC1, NEUROTENSIN, CHROMOGRANA, 5HIAARANDO IMPRESSION & PLAN: Dr. Ortega has seen and evaluated this patient. Please see attached addendum by Dr. Ortega for impression and recommendations. [facility] Addendum by Dr. Ortega: IAttending Addendum:I saw and evaluated the patient with Yudelka Mroalez CNP. I provided a substantive portion of the care for this patient. I personally performed all aspects of the medical decision making for this encounter. I have reviewed and verified this documentation and it accurately reflects our care. I discussed the current diagnosis, staging, prognosis and treatment options along with the natural history of this cancer for over 60 minutes and spent a total time of around 90 minutes. I reviewed the outside medical records at length. Ms. Zainab Swift is a 27 y.o. 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 Initial symptoms related to her diagnosis began in the year ~2016 when she developed intermittent dull and occaisonally sharp pain in the right lower abdomen. CT A/P with contrast on 02/03/22 revealed concerned for acute appenditis and a 2.9 cm L ovarian cyst. She is s/p laparoscopic appendectomy on 02/03/22 which revealed a 3.5 cm low grade appendiceal mucinous neoplasm at the distal end with surface disruption, penetrating through the appendiceal wall and present at the serosal surface. The 2.2 cm grade 1 (Ki 67<3%) well differentiated NET was located at the proximal half, invading into subserosa and mesoappendiceal adipose tissue, with focal lymphovascular invasion and perineural invasion. The resection margin was focally positive for well differentiated NET, but negative for low grade mucinous neoplasm. She was seen by [facility] Suman Baker [facility] in [facility] chest revealed a small subpleural nodule in the left lower lobe, favored to represent a benign intrapulmonary lymph node; otherwise, unrevealing. CT a/p w/c was unrevealing. She underwent a diagnostic lap on 04/21/22 and was noted to have a pool of mucin in the pelvis intraop s/p suctioning/ sent for cytology. In addition, there were mucinous implants in the peritoneum overlying the iliac vessels- s/p biopsy. Examination of the bilateral ovaries did not reveal significant involvement with the mucin and there were absence of any tumor implants. Rest of the abdominal cavity was free of mucin or any evidence of peritoneal carcinomatosis. Pathology of peritoneal biopsy revealed Fibrovascular connective tissue with acellular mucin, reactive mesothelium and histiocytic aggregates; peritoneal fluid cytology all revealed acellular mucin. She subsequently underwent exploratory laparotomy on 05/22/22 s/p resection of falciform ligament, omentectomy, right hemicolectomy. - radical resection of peritoneal tumor implants, resection of small peritoneal nodules, and administration of HIPEC with mitomycin C. Examination of the abdominal cavity revealed mucinous implants in the RLQ, pelvis and in the distal small bowel mesentery. PCI was graded at 6. Pathology revealed Microscopic foci of acellular mucin in the omentum, Cauterized peritonealized dense fibroadipose tissue with foci of acellular mucin in several peritoneal implants, 1 peritoneal implant with grade 1 well differentiatated NET (4.5 mm) and with foci of acellular mucin and reactive mesothelial proliferation, terminal ileum mesentery with foci of acellular mucin with associated reactive mesothelial proliferation, cecum without NET or LAMN, 1/[address] positive for metastatic NET. LMAN- stage pM1a. NET stage: pN1/M1b. Patient reports that since 2020 she had alternating constipation and diarrhea- following 05/22/22 tumor debulking surgery, she developed C.diff diarrhea (1-015 loose stools/day) s/p oral vancomycin course x 2 (2nd course completed yesterday) and she currently has 3-4 soft/liquid bowel movements. She reports flushing (face and neck) 1-2 times/day, lasting for 30 min-1 hr x for a few years, that has worsened since 05/2022. She reports associated palpitations and light-headedness since flushing. She reports that she had come off her medication for mood disorder recently. Reports low energy and fatigue. ECOG PS 1. 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 1. 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 I discussed the current diagnosis, staging, prognosis and treatment options along with natural history of this cancer and reviewed the outside medical records at length. I explained to the patient about the spectrum of neuroendocrine neoplasms ranging from well-differentiated neuroendocrine tumors to poorly differentiated neuroendocrine carcinomas. We discussed about the grades of neuroendocrine tumors based on Ki 67 and number of mitosis. I explained that her tumor had originated in the appendix and has spread to the regional LN and peritoneum. I explained that her tumor is stage IV at this time and the goals of treatment would be: 1. To palliate symptoms if any 2. To prevent tumor progression and help decrease or stabilize current tumor burden and 3. To prolong life. We discussed that several characteristics of the primary tumor pathology such as tumor size, degree/presence of invasion, number of positive lymph nodes help predict the chance of recurrence. We also discussed about liver, lymph nodes, bones as common sites of metastasis.We discussed that well differentiated neuroendocrine tumor tends to be generally slow growing in nature and that it may take years to grow rather than days/weeks/months. I also explained that these tumors may secrete hormones/peptides that may cause symptoms of Carcinoid syndrome including flushing, diarrhea, wheezing, light headedness; or may be asymptomatic. >>I talked about the role of Octreotide in that it controls Carcinoid syndrome very well and has a tumor stabilizing effect as well. In the PROMID study, which only enrolled patients with well differentiated midgut carcinoid tumors, the median time to tumor progression in the octreotide LAR and placebo groups was 14.3 and 6 months (p=[id number]), respectively. The CLARINET study, [which enrolled patients with well-differentiated or moderately differentiated, nonfunctioning, somatostatin receptor-positive enteropancreatic neuroendocrine tumors of grade 1 or 2 (Ki-67 of <10%) with documented disease-progression status], showed a significantly prolonged PFS (median not reached vs. median of 18.0 months, P<0.001) in patients who received lanreotide vs. Placebo. >>I also discussed about future treatment options including everolimus, PRRT, liver directed therapy if she were to develop neuroendocrine tumor liver metastases. - Will obtain baseline Ga DOTATATE PET to evaluate extent of any residual tumor burden - We discussed about cyproheptadine for flushing versus initiation of octreotide LAR after Ga PET. She favors the former. Education provided. Will give a trial of cyprohepatadine. - I am unsure how much role her mood disorder/anxiety is playing in her palpitations/flushing and I advised she follow up with psychiatry as well if resumption of her meds is needed. - RTC after Ga DOTATATE PET and triple phase CT A/P 2. LAMN: Discussed with Dr. Vinicius Gomes/[facility] who recommended active surveillance. No role for adjuvant systemic therapy. Patient will continue to follow with Dr. Suman Baker. 3. Hx of NET in family: referral to genetics 4. Transaminitis: discontinue hepatotoxins/acetaminophen. Repeat LFTs at RTC. documented in this encounter [facility] 07-08-2022 Instructions Yina Amaya RN - 07/08/2022 8:00 AM EST Return to clinic : RTC with Dr. Ortega (video per patient preference) ~1-2 weeks after scans Labs/Scans: GA PET and triple phase CT A/P same day next available Labs locally 2 days prior to return visit Treatment: Flushing: periactin 4 mg every 6 hours as needed. Will start @ night as it can cause dizziness, drowsiness Referrals: Genetic referral to Ronda RN to do: Nursing education: New patient package Avoid hepatotoxic agents including stopping Tylenol Cancel pathology-done documented in this encounter [facility] 06-09-2022 History of Present illness Narrative Chief Complaint: Chief Complaint Patient presents with Follow-up HPI: Zainab Swift is a 27 y.o. 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 Her post-op course was uncomplicated and she was discharged home on 05/29/22. She developed watery diarrhea and tested positive for c.diff on 06/02. Ms. Swift is here with her for her appointment today. She denies any fevers/chills. She is eating a regular diet, appetite is low, small amounts throughout the day, denies nausea/vomiting. She continues to have diarrhea- watery. She reports the frequency has decreased from 10-12 times per day to 2-3 times per day. She is having mild incisional pain. She is taking tylenol every six hours and oxycodone 1-2 times per day. She no longer is needing ibuprofen. She reports she is increasing activity as tolerated at home. She reports daily facial flushing and feelings of a fast heart beat. She reports this was present prior to surgery. Current Outpatient Medications Medication Sig acetaminophen 500 MG tablet Take 500 mg by mouth every 6 hours as needed for Mild Pain. Enoxaparin Sodium 40 MG/0.4ML injection Inject one syringe (0.4 mL) under the skin every 24 hours. ondansetron 4 MG tablet Take 4 mg by mouth every 8 hours as needed for Nausea / Vomiting. Probiotic Product (PROBIOTIC DAILY PO) Take 1 tablet by mouth daily. vancomycin 125 MG capsule Take 125 mg by mouth 4 times daily. bisacodyl [address] Take all 4 tablets at 11am the day before surgery FLUoxetine 40 MG capsule Take 40 mg by mouth daily. ibuprofen 200 MG tablet Take 200 mg by mouth every 6 hours as needed for Mild Pain. (Patient not taking: Reported on 06/09/2022) OLANZapine 5 MG tablet Take 5 mg by mouth At bedtime. omeprazole [address] capsule Take 20 mg by mouth as needed. (Patient not taking: Reported on 06/09/2022) oxyCODONE 5 MG tablet Take 1 tablet by mouth every 4 hours as needed for Severe Pain for up to 5 days. polyethylene glycol 17 GM/SCOOP Powder powder 11 AM: Take entire contents over 2 hours as instructed. senna 8.6 MG tablet Take 1 tablet by mouth daily as needed for Constipation. Continue stool softeners while on narcotics. Hold for loose stools. No Known Allergies Medical/Surgical/Family/Social History: I have reviewed Ms. Swift's medical, surgical and other pertinent history in detail, and have updated the computerized patient record where appropriate. Review of Systems: General ROS: positive for - fatigue and weight loss negative for - chills or fever Cardiovascular ROS: no chest pain or dyspnea on exertion Respiratory ROS: no cough, shortness of breath, or wheezing Gastrointestinal ROS: positive for - abdominal pain and diarrhea, occasional nausea without diarrhea, decreased appetite negative for - gas/bloating Dermatological ROS: negative Physical Exam: BP 110/60 Pulse 80 Temp 98.6 F (37 C) (Oral) Resp 16 Wt 72.7 kg (160 lb 3.2 oz) SpO2 98% BMI 29.30 kg/m Smoking Status Never Wt Readings from Last 3 Encounters: 06/09/22 72.7 kg (160 lb 3.2 oz) 05/22/22 76.2 kg (168 lb) 04/21/22 75.3 kg (166 lb) General: alert, cooperative, no distress, appears stated age Cardio: regular rate and rhythm, S1, S2 normal, no murmur, click, rub or gallop Pulmonary: clear to auscultation bilaterally Abdomen: soft, bowel sounds active, non-tender Incision: midline abdominal incision with kike intact- healing well, no drainage, no erythema, no hernia, no seroma, no swelling, well approximated Surgery/Procedure: 05/22/22 PROCEDURE: - Exploratory laparotomy - Resection of falciform ligament - Omentectomy - Right hemicolectomy - Radical resesection of peritoneal tumor implant (10x5cm) - Resection of small peritoneal nodules - Insertion and removal of intraperitoneal catheter - Hyperthermic intraperitoneal chemoperfusion with MMC FINDINGS: There was mucinous implants along the RLQ, pelvis and small bowel mesentery. PCI 6. CC 0. Pathology: Pathologic Diagnosis A. Falciform ligament, excision: Benign fibroadipose tissue, negative for mucinous neoplasm or neuroendocrine tumor. B. Omentum, omentectomy: Omentum with microscopic foci of acellular mucin, see comment. Negative for neuroendocrine tumor. C. Peritoneal implant #1, excision: Cauterized peritonealized dense fibroadipose tissue with foci of acellular mucin. Negative for neuroendocrine tumor. D. Peritoneal implant #2, excision: Peritonealized dense fibroadipose tissue with foci of acellular mucin and reactive mesothelial proliferation, see comment. Negative for neuroendocrine tumor. E. Terminal ileum and right colon, right hemicolectomy: Cecum with evidence of prior appendectomy site changes, negative for residual neuroendocrine tumor or low-grade appendiceal mucinous neoplasm. Terminal ileum mesentery to foci of acellular mucin with associated reactive mesothelial proliferation. Metastatic neuroendocrine tumor identified in one of fifty regional lymph nodes (1/50). F. Peritoneal implant #3, excision: Peritonealized dense fibroadipose tissue with foci of acellular mucin, chronic inflammation and reactive mesothelial proliferation. Negative for neuroendocrine tumor. G. Peritoneal implant #4, excision: Well-differentiated neuroendocrine tumor, WHO grade 1, 4.5 mm involving the peritonealized fibroadipose tissue, see comment. Peritoneum with foci of acellular mucin and reactive mesothelial proliferation. 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 Peritoneal implants (parts C, D, F and G) and mesenteric deposits in right hemicolectomy (part E) show foci of acellular mucin without identifiable tumor cells. 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 The nodule in the peritoneal implant#4 shows tumor with diffuse expression for cytokeratin AE1/AE3 and Chromogranin supporting the above diagnosis of well-differentiated neuroendocrine tumor. The tumor shows rare cells with Ki67 expression with a proliferative index <1%, consistent with WHO grade 1. In addition one of the regional lymph nodes shows focus of metastatic neuroendocrine tumor. These findings would be consistent with pathology stage pN1/M1b. Assessment: Zainab Swift is a 27 y.o. female who is s/p ex lap, resection of falciform ligament, omentectomy, right hemicolectomy, radical resection of peritoneal tumor implant, resection of small peritoneal nodules, and HPIEC with MMC. 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 She is doing very well after surgery. Encouraged to continue to work on her diet, including supplements and hydration. Encouraged to increase activity as tolerated, no heavy lifting >15 pounds for 6 weeks after surgery date. Discussed completing PO vancomycin for the full 10 days as prescribed. Plan: Patient seen and evaluated by myself, all relevant available imaging and labs reviewed with Dr. Baker, and the plan was developed collaboratively. 1. NET med onc referral 2. RTC 4 weeks telehealth visit 3. CT in 6 months and appointment with Dr. Baker Will call with any questions, concerns, or change in clinical status. MAMTA Carrion documented in this encounter [facility] 06-09-2022 Instructions Veronique Calvin RN - 06/09/2022 1:15 PM EST Tele health visit with Carlos Gomes CNP in 4 weeks on a Wednesday. Referral placed to neuroendocrine oncology. Return in [address] Baker with scans same day. documented in this encounter [facility] 05-29-2022 Note Formatting of this n ote might be different from the original. Patient and spouse given all discharge instructions at this time. Patient verbalizes understanding of all discharge instructions and picked up all prescriptions from downstairs pharmacy. Patient states she properly demonstrated how to administer lovenox with previous nurse and denies any further education. IV taken out and patient tolerated well. No further needs expressed at the time of discharge. Patient taken out via wheelchair with all belongings at 1147. [facility] 05-29-2022 Miscellaneous Notes Patient and spouse given all discharge instructions at this time. Patient verbalizes understanding of all discharge instructions and [facility] Patient states she properly demonstrated how to administer lovenox with previous nurse and denies any further education. IV taken out and patient tolerated well. No further needs expressed at the time of discharge. Patient taken out via wheelchair with all belongings at 1147. 05/28/22 1018 Referral Information Arrived From home or self-care;operating room Final Discharge Planning Discharge Disposition Home Services at Discharge Outpatient clinical services (ie: lab draws, transfusions, injectables) (Follow up scheduled with Dr. Baker) CM/SW AVS Portion Completed Yes Plan Plan Possible discharge this weekend. Plan Comments Discharge to home with spouse Transport Request Mode of Transfer private vehicle Accompanied By significant other Zainab Swift is a 27 y.o. 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 [place] Inpatient PCRM Discharge Note Patient discussed in am medical rounds for possible weekend discharge to home. PCRM met with the patient/spouse to discuss final discharge plan. Services for Discharge Home without patient needs. Consults with Final Discharge Recommendations N/A Lines/Tubes/Drains/Wounds/Supplie s Abdominal incision with kike Medications No barriers anticipated in obtaining discharge medications. No prior authorizations anticipated. Reconciliation of medications to be completed by the medical team. Additional education provided on home Lovenox in the AVS. Durable Medical Equipment N/A Choice Was Patient Choice Provided: N/A Transportation Transportation will be provided by Phill-spouse. Education Discharge education provided by the medical team and updated in the After Visit Summary. Follow Up(s) Any follow up requested by the medical team arranged. Appointments in the After Visit Summary. Was Ambulatory PCRM added to the Care Team? No The PCRM has updated the patient's nurse Tania EMERY regarding the final discharge plan. Risk of Readmission: 4.7 Category Reference: Low: 0% - 5% Medium - Low: 5.1% - 10% Medium - High: 10.1% - 16% High: 16.1% - 100% Readmission Risk Interventions Documented: Yes No other discharge needs have been identified at this time. This plan was developed in collaboration with the patient and caregiver/preferred decision maker. Patient and family are in agreement with final discharge plan. Please refer to AVS and medical record for additional information. Patient instructed to call with questions. PCRM will continue to follow with medical team for any additional discharge planning needs. If any changes to this individualized plan of care during evening and weekend hours and assistance is needed, please page the application trainer PCRM at [phone]. Patient did well overnight. Patient pain mostly being controlled with epidural, but scheduled medications controlling her mild to moderate breakthrough pain. Patient with steady gait and only needig needing stand-by assistance. Patient now with bowel function and feeling hungry. Patient hopefully to have diet started today. Patient was able to be up in walking with stand-by assistance from multiple times yesterday. 2123: Moonlighter paged: Rm 1200, Kryling: FYI pt states that she can't tolerate taking the olanzapine disintegrating tablet because of the NG. Thanks [id number] Q1 safety rounds completed. Patient pain controlled with PRN medications. NPO with meds. Emesis x1. Family at bedside. Problem: Patient Care Overview Goal: Plan of Care Review Outcome: Met This Shift Goal: Individualization & Mutuality Outcome: Met This Shift Problem: Pain, Acute (Adult) Goal: Identify Related Risk Factors and Signs and Symptoms Description: Related risk factors and signs and symptoms are identified upon initiation of Human Response Clinical Practice Guideline (CPG) Outcome: Met This Shift Problem: Patient Care Overview Goal: Discharge Needs Assessment Outcome: Ongoing Goal: Interdisciplinary Rounds/Family Conf Outcome: Ongoing Problem: Pain, Acute (Adult) Goal: Acceptable Pain Control/Comfort Level Description: Patient will demonstrate the desired outcomes by discharge/transition of care. Outcome: Ongoing I certify that this patient requires inpatient services at this time. I anticipate the expected length of stay will include at least two midnights. Inpatient services are due to the following medical concerns appendiceal NET. Plans for post hospitalization care will be discharge to home. 05/22/22 1608 Referral Information Arrived From home or self-care;operating room Readmission Information Was patient readmitted within 30 Days? No Information Source Information Source patient Information Source Name Zainab Swift-in person Information Source Number Demographics reviewed Outpatient Providers Outpatient Providers Updated In IHIS Yes Contact Information Cash Management Coordinator/SW Added to Care Team Yes This Route Inspector is Primary Cash Management Coordinator/SW Yes ([facility]io Jiang [facility] [phone][facility] Cash Management Coordinator Name Pniky Barcenas RN [facility] Cash Management Coordinator's Social Work Contact Name Bailey WILLAMS, [facility] Town Administrator's Living Environment Lives With spouse Living Arrangements house Provides Primary Care For no one Primary Care Provided By self Support System Immediate family Able to Return to Prior Arrangements yes Functional Status Patient's Functional Status Prior To This Admission? Independent Are There Status Changes This Admisson? Yes Changes Observed Since Admission? Physical (surgical recovery) Who Is Patient's Primary Contact For Discharge Planning, Education And Care For Discharge? Phill Swift [phone] Can Support Person Meet The Care Needs Of The Patient? 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 Employment/Financial Concerns no Source Of Income salary/wages Financial Concerns none Insurance Medical Insurance Verified Yes Prescription Coverage Yes Pharmacy updated in IS Yes Initial Discharge Planning Home Care Services (FIRE CHIEF DEPUTY) No Home Therapies (FIRE CHIEF DEPUTY) None DME (FIRE CHIEF DEPUTY) None Medical Supplies (FIRE CHIEF DEPUTY) None Patient Goal for Discharge Return home with assistance from family and friends Anticipated discharge disposition Home Anticipated Services at Discharge Outpatient follow up Anticipated Changes Related to Illness none Current Discharge Risk high risk diagnoses (i.e., CHF, Stroke, DM, chronic pain, abdominal pain, nausea and vomiting) Transportation Available car Home Care Services (FIRE CHIEF DEPUTY) Additional Home Care Services (FIRE CHIEF DEPUTY) no Assessment/Concerns to be Addressed Concerns To Be Addressed denies needs/concerns at this time Zainab Swift is a 27 y.o. yr old female, who is now POD#0 s/p HYPERTHERMIA BY INTRACAVITARY PROBE (HIPEC) (N/A) COLECTOMY PARTIAL OPEN (Right), DEBULKING INTRA-ABDOMINAL/PELVIC/RETROPERIT FLEMING W/ OMENECTOMY & PELVIC PARA-AORTIC LYMPHADENECTOMY (N/A). PCRM Initial Assessment Met with Zainab to complete the initial assessment. Explained role and function of PCRM in multidisciplinary team. Contact number provided for questions. Demographic information reviewed with patient and confirmed as correct. Reason for Admission: planned surgical procedure Estimated length of stay: as medically indicated Advanced directives Patient does not have Advanced Directives on File Lines/Drains/Tubes Abdominal incision with dressing x 2 Griselda drain x 1-under distal dressing NG-low wall suction Lewis-straight drain Epidural-pain control Initial PCRM Discharge Planning Home with spouse Final plan will be determined closer to discharge, pending therapy and medical team recommendations. Patient/family verbalized understanding and agreement with the plan of care. Patient/family have no questions at this time. PCRM will continue to follow patient with multidisciplinary team for ongoing assessment of needs and for discharge planning. Medical team updated. 1512: Report called to Jevon EMERY on [place]. All questions answered. 1514: Patient discharged from [facility] PACU per protocol. Patient transported via gurney with side rails up x2 with HOB>30 degrees to room 1204 [facility] by Natalia EMERY and Dang LISA. Family called to patient's bedside. 1310: Patient arrives in [facility] PACU from OR via gurney with side rails up x2 with HOB >30 degrees, accompanied by Anesthesiologist: Vinicius Gupta DO; Chayo Benson MD Looper Fixer: VIJAYA Gamboa; VIJAYA Lopez Substation Operator Chief Assisting: Richard Bradshaw MD Operations Controller: Wali Art. Patient placed on monitors, VSS. Report received from anesthesia. Patient assessed, see assessment. 1427: PACU labs and abdominal xray for NG placement cleared by Miguel Betancourt at this time. 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 JR drain placed in pelvis. SURGEON Surgeon(s) and Role: * Suman Baker MD, PhD - Primary ANESTHESIOLOGIST Anesthesiologist: Vinicius Gupta DO; Chayo Benson MD Looper Fixer: VIJAYA Gamboa; VIJAYA Lopez Substation Operator Chief Assisting: Richard Bradshaw MD Operations Controller: Wali Art SURGICAL STAFF Master At Arms: Piedad Maki RN; Rima Medel RN Relief Master At Arms: Suri Stockton RN Relief Scrub: [facility] Guillermina Scrub Person: Heidy Skelton; Tammy Lopez Resident Assisting: Rodolfo Arnold MD; Narciso Hong MD COMPLICATIONS None ESTIMATED BLOOD LOSS Minimal SPECIMENS . ID Type Source Tests Collected by Time Destination 1 : CALCIFORM LIGAMENT Permanent SURG PATH SURG PATH REQUEST Suman Baker MD, PhD 05/22/2022 0831 2 : Omentum Permanent SURG PATH SURG PATH REQUEST Suman Baker MD, PhD 05/22/2022 0854 3 : Peritoneal implant #1 Permanent SURG PATH SURG PATH REQUEST Suman Baker MD, PhD 05/22/2022 0900 4 : Peritoneal implant #2 Permanent SURG PATH SURG PATH REQUEST Suman Baker MD, PhD 05/22/2022 0902 5 : TERMINAL ILEUM AND COLON Permanent SURG PATH SURG PATH REQUEST Suman Baker MD, PhD 05/22/2022 0924 6 : PERITONEAL IMPLANT #3 Permanent SURG PATH SURG PATH REQUEST Suman Baker MD, PhD 05/22/2022 0936 7 : PERITONEAL IMPLANT #4 Permanent SURG PATH SURG PATH REQUEST Suman Baker MD, PhD 05/22/2022 0941 This procedure was not performed to treat colon cancer through resection Rodolfo Arnold MD May 22, 2022 1:06 PM Zainab Swift ([id number]) PRE OPERATIVE DIAGNOSIS 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 19 Fr drain in the pelvis coming out LLQ SURGEON Surgeon(s) and Role: * Suman Baker MD, PhD - Primary ANESTHESIOLOGIST Anesthesiologist: Vinicius Gupta DO; Chyao Benson MD Looper Fixer: VIJAYA Gamboa; VIJAYA Lopez Substation Operator Chief Assisting: Richard Bradshaw MD Operations Controller: Wali Art SURGICAL STAFF Master At Arms: Piedad Maki RN; Rima Medel RN Relief Master At Arms: Suri Stockton RN Relief Scrub: Ghanshyam Townsend Scrub Person: Heidy Skelton; Tammy Lopez Resident Assisting: Rodolfo Arnold MD; Narciso Hong MD COMPLICATIONS None ESTIMATED BLOOD LOSS 25 ml SPECIMENS ID Type Source Tests Collected by Time Destination 1 : CALCIFORM LIGAMENT Permanent SURG PATH SURG PATH REQUEST Suman Baker MD, PhD 05/22/2022 0831 2 : Omentum Permanent SURG PATH SURG PATH REQUEST Suman Baker MD, PhD 05/22/2022 0854 3 : Peritoneal implant #1 Permanent SURG PATH SURG PATH REQUEST Suman Baker MD, PhD 05/22/2022 0900 4 : Peritoneal implant #2 Permanent SURG PATH SURG PATH REQUEST Suman Baker MD, PhD 05/22/2022 0902 5 : TERMINAL ILEUM AND COLON Permanent SURG PATH SURG PATH REQUEST Suman Baker MD, PhD 05/22/2022 0924 6 : PERITONEAL IMPLANT #3 Permanent SURG PATH SURG PATH REQUEST Suman Baker MD, PhD 05/22/2022 0936 7 : PERITONEAL IMPLANT #4 Permanent SURG PATH SURG PATH REQUEST Suman Baker MD, PhD 05/22/2022 0941 Colon Resection Operation performed with curative intent Yes Tumor Location Cecum Extent of colon and vascular resection Right hemicolectomy - ileocolic, right colic (if present) Narciso Hong MD May 22, 2022 1:04 PM SURGEONS: Suman Baker MD, PhD CASE MANAGER SPECIALIST SURGEON: Rodolfo Arnold MD PROCEDURE: - Exploratory laparotomy - Resection of falciform ligament - Omentectomy - Right hemicolectomy - Radical resesection of peritoneal tumor implant (10x5cm) - Resection of small peritoneal nodules - Insertion and removal of intraperitoneal catheter - Hyperthermic intraperitoneal chemoperfusion with MMC ANESTHESIA: GENERAL ESTIMATED BLOOD LOSS: 50 ml PREOPERATIVE DIAGNOSIS: LAMN and appendiceal NET POSTOPERATIVE DIAGNOSIS: LAMN and appendiceal NET INDICATION: Zainab Swift is a 27 y.o. female with a history of perforated LAMN with mucinous peritoneal spread and appendiceal NET. Following detailed discussion regarding the benefits and the risk, the patient was recommended and consented for CRS+HIPEC. FINDINGS: There was mucinous implants along the RLQ, pelvis and small bowel mesentery. PCI 6. CC 0. DETAILS OF THE OPERATION: The patient was verified in the preoperative area and consent was reviewed. She was brought the OR and initial timeout was performed to confirm correct patient, positioning, procedure, antibiotics, and anticipated operative time. SCDs were placed and were turned on. General anesthesia was induced without any issues and airway was secured with endotracheal tube. Nasogastric tube insertion was confirmed with return of gastric contents. Preoperative antibiotics was administered. The patient was positioned in a supine position with both arms out. We ensured that all of her pressure points were padded and protected. Her belly was prepped and drapped in standard sterile fashion. We performed a second timeout per standard procedure at the [facility]. We made a midline incision using a 10 blade.. The incision was carried down to the fascia. The fascia was excised and the peritoneum was entered sharply. We extended the incision inferiorly and superiorly. We then resected the falciform ligament. Examination of the abdominal cavity revealed mucinous implants in the RLQ, pelvis and in the distal small bowel mesentery. PCI was graded at 6. We began the operation by detaching the omentum off the transverse colon. We then took down the omentum from the greater curvature of the stomach using the ligasure device. The right gastroepiploic arcade was preserved. The omentum was then transected and passed off the field. Next, we exposed the ileocolic pedicle. A mesenteric window was created near the origin of the vessels. The peritoneum overlying the vessels was dissected using the Ligasure device. We circumferentially dissected the vessel and was taken with an endo-KARRIE sarmiento stapler device. Next, we began the [id number] dissection to mobilize the colonic mesentery. We carefully protected the right ureter and the duodenum through the dissection. Once we reached the lateral extent of our dissection, the proximal transverse colon was then retracted in caudad dissection, and its superior attachments including the hepatic flexure and the lateral peritoneal attachments of the right colon were divided using sharp dissection with the Ligasure. The mesentery of the terminal ileum was then freed from its retroperitoneal attachment. We ensured to include distal small bowel approximately 15 cm which was covered in mucinous implants. We identified the proximal transverse colon transection point proximal to the middle colic vessels and was divided with an endo-KARRIE sarmiento stapler. The terminal ileum was then divided with an endo-KARRIE sarmiento stapler. The remaining mesentery was then divided using the Ligasure, and the specimen was passed off the filed. We then proceeded with creating a [id number] functional end-to-end anastomosis between the distal ileum and proximal transverse colon using the endo-KARRIE sarmiento stapler. We placed a reinforcement 3-0 silk sutures at the apex of the anastomosis. The common enterotomy was closed with the TA stapler. The staple line was reinforced with 4-0 monocryl in a continuous fashion. We then focused our attention to the RLQ and pelvic peritoneum which was covered with mucinous implants. We resected an area of 10x5cm section to ensure complete resection. We then ran the bowel multiple times from the ligament of treitz to the anastomosis. There were sporadic smaller implants which were completely resected. At this point, we were satisfied with the cytoreduction and decided to move forth with hyperthermic intraperitoneal chemoperfusion. The inflow and outflow catheters were brought to the field. The outflow catheter was placed above the liver. The two inflow catheters were placed along the paracolic gutters. We incorporated the catheters within skin closure stitch using 1-0 nylon stitch. The exit sites of the catheters were reinforced with 2-0 prolene sutures. We then placed inflow and outflow temperature probes into the cannulas. The catheters were then attached to the perfusion circuit. The abdominal cavity was filled with heated 3L saline. Once the perfusion circuit was established with good return and the outflow temperature was 40 degrees celsius, we started our hyperthermic intraperitoneal chemoperfusion with 40 mg of mitomycin C (30 mg delivered at time 0 and 10 mg delivered at time 60 min) for total of 100 min. Following the perfusion, the midline incision was opened and the catheters were removed. We carefully inspected all the intraabdominal organs to ensure that there was no injury. We then placed a 19 Fr round channel drain in the pelvis. The fascia was closed with running 1-PDS x2. Skin incision was closed using skin stapler. The sponge, needle, and instrument counts were correct x2. The patient tolerated the procedure without any issues. The patient was extubated in the OR without any issues and was transported to the PACU for further recovery. I was present and participated for the entirety of the case. WOC/ET Nursing Note: Patient seen for pre-op stoma marking. Assessed in sitting and lying positions. Marked with an X using a permanent marker. Marked in all four quadrants; within rectus muscle, within field of vision, and on flat pouching surfaces. Will follow for teaching after ostomy created. 05/22/22 0607 General Pain Documentation (Adult, OB, Peds) Presence of Pain denies pain/discomfort Comfort/Acceptable General Pain Level/Goal 6 Incision (Adult, Pediatric) 04/21/22745 upper;medial abdomen laparoscopic puncture Placement Date/Time: 04/21/22745 Present On Admission : no Orientation: upper;medial Location: abdomen Incision Type: laparoscopic puncture Incision WDL WDL Incision (Adult, Pediatric) 04/21/22747 Left lateral abdomen laparoscopic puncture Placement Date/Time: 04/21/22747 Present On Admission : no Side: Left Orientation: lateral Location: abdomen Incision Type: laparoscopic puncture Incision WDL WDL Incision (Adult, Pediatric) 04/21/22748 lower;medial abdomen laparoscopic puncture Placement Date/Time: 04/21/22748 Present On Admission : no Orientation: lower;medial Location: abdomen Incision Type: laparoscopic puncture Incision WDL WDL Plan WOCT Visit Frequency Sat Last Date Seen 05/22/22 documented in this encounter [facility] 05-29-2022 Hospital course Narrative Discharge Summary Name: Zainab Swift Age: 27 y.o. Birthday: 1995 Admit Date: 05/22/2022 5:09 AM Discharge Date: 9:31 AM Discharge Time: 05/29/22 Discharge Unit: C12A Admission Information Admitting Physician: Suman Baker MD, PhD Discharge Information Discharge Physician: Dr. Woo King Problem List Active Hospital Problems Diagnosis Primary malignant neuroendocrine tumor of appendix Resolved Hospital Problems No resolved problems to display. Brief Summary of Hospital Course for Discharge Summary: 27 y.o. female with appendiceal NET s/p HIPEC with Mitomycin C, right hemicolectomy and partial omentectomy on 05/22/22. POD 1 05/23-continue NG and lewis POD 2 05/24-Received 1L bolus and 500mL of albumen for hypotension and tachycardia overnight. Remove lewis. POD 3 05/25- continue NG for decompression POD 4 05/26-remove NG POD 5 05/27- advance to full liquid diet POD 6 05/28-Remove JR drain today and advance to regular diet. Pull epidural POD 7 05/29- On day of discharge, patient is hemodynamically stable, tolerating a regular diet, and pain is well controlled on oral pain medications. Brief Summary of Consults for Discharge Summary: Brief Summary of Procedures and Imaging for Discharge Summary: Summary of last selected lab results and date obtained: Lab Results Component Value Date WBC 7.36 05/29/2022 HGB 10.5 (L) 05/29/2022 HCT 33.0 (L) 05/29/2022 PLATELET 423 (H) 05/29/2022 MCV 85.1 05/29/2022 Lab Results Component Value Date SODIUM 139 05/29/2022 POTASSIUM 4.2 05/29/2022 CHLORIDE 104 05/29/2022 CO2 26 05/29/2022 BUN 5 (L) 05/29/2022 CREATSERUM 0.66 05/29/2022 GLUCOSE 93 05/29/2022 Lab Results Component Value Date ALT 17 05/22/2022 AST 23 05/22/2022 ALKPHOS 54 05/22/2022 BILITOTAL 0.5 05/22/2022 BILIDIRECT 0.2 05/22/2022 Brief Summary of Labs for Discharge Summary: No discharge procedures on file. Current Outpatient Meds: Medication List for when you go home START taking these medications Enoxaparin Sodium 40 MG/0.4ML injection Inject 0.4 mL under the skin every 24 hours. Commonly known as: LOVENOX oxyCODONE 5 MG TABS Take 1 tablet by mouth every 4 hours as needed for Severe Pain for up to 5 days. Commonly known as: ROXICODONE For diagnoses: Primary malignant neuroendocrine tumor of appendix sennosides 8.6 MG TABS Take 1 tablet by mouth daily as needed for Constipation. Continue stool softeners while on narcotics. Hold for loose stools. Commonly known as: SENNA CONTINUE taking these medications acetaminophen 500 MG TABS Take 500 mg by mouth every 6 hours as needed for Mild Pain. Commonly known as: TYLENOL bisacodyl [address] Take all 4 tablets at 11am the day before surgery Commonly known as: DULCOLAX FLUoxetine 40 MG CAPS Take 40 mg by mouth daily. Commonly known as: PROZAC ibuprofen 200 MG TABS Take 200 mg by mouth every 6 hours as needed for Mild Pain. Commonly known as: MOTRIN OLANZapine 5 MG TABS Take 5 mg by mouth At bedtime. Commonly known as: zyPREXA omeprazole [address] capsule Take 20 mg by mouth as needed. Commonly known as: PRILOSEC polyethylene glycol 17 GM/SCOOP POWD powder 11 AM: Take entire contents over 2 hours as instructed. Commonly known as: MIRALAX Follow-up: No follow-up provider specified. Upcoming Appointments (up to five)-Some appointments for Medical Center outpatient clinics or diagnostic testing locations are not displayed below Provider Department Dept Phone 06/09/2022 1:15 PM Carlos Gomes Division of Surgical Oncology Arrive at: Arrive to [facility] First Floor Registration [phone] documented in this encounter [facility] 05-28-2022 Note Formatting of this n ote is different from the original. 05/28/22 1018 Referral Information Arrived From home or self-care;operating room Final Discharge Planning Discharge Disposition Home Services at Discharge Outpatient clinical services (ie: lab draws, transfusions, injectables) (Follow up scheduled with Dr. Baker) CM/SW AVS Portion Completed Yes Plan Plan Possible discharge this weekend. Plan Comments Discharge to home with spouse Transport Request Mode of Transfer private vehicle Accompanied By significant other Zainab Swift is a 27 y.o. 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 [place] Inpatient PCRM Discharge Note Patient discussed in am medical rounds for possible weekend discharge to home. PCRM met with the patient/spouse to discuss final discharge plan. Services for Discharge Home without patient needs. Consults with Final Discharge Recommendations N/A Lines/Tubes/Drains/Wounds/Supplie s Abdominal incision with kike Medications No barriers anticipated in obtaining discharge medications. No prior authorizations anticipated. Reconciliation of medications to be completed by the medical team. Additional education provided on home Lovenox in the AVS. Durable Medical Equipment N/A Choice Was Patient Choice Provided: N/A Transportation Transportation will be provided by Phill-spouse. Education Discharge education provided by the medical team and updated in the After Visit Summary. Follow Up(s) Any follow up requested by the medical team arranged. Appointments in the After Visit Summary. Was Ambulatory PCRM added to the Care Team? No The PCRM has updated the patient's nurse Tania EMERY regarding the final discharge plan. Risk of Readmission: 4.7 Category Reference: Low: 0% - 5% Medium - Low: 5.1% - 10% Medium - High: 10.1% - 16% High: 16.1% - 100% Readmission Risk Interventions Documented: Yes No other discharge needs have been identified at this time. This plan was developed in collaboration with the patient and caregiver/preferred decision maker. Patient and family are in agreement with final discharge plan. Please refer to AVS and medical record for additional information. Patient instructed to call with questions. PCRM will continue to follow with medical team for any additional discharge planning needs. If any changes to this individualized plan of care during evening and weekend hours and assistance is needed, please page the application trainer PCRM at [phone]. [facility] 05-28-2022 History of Present illness Narrative Epidural pulled at 9:11 AM without complications, tip intact. Site skin clean, non-erythematous, no bleeding. Site cleaned with alcohol wipe and covered with band-aid. Continue current pain medications. DVT prophylaxis: Heparin: Resume 2 hours after epidural removal Lovenox: Resume 4 hours after epidural removal Acute pain will sign off at this time. Thank you for allowing the Acute Pain Service to participate in the care of Zainab Swift. Please page [phone] or call [phone] with any questions or concerns. Elroy Powell MD Acute Pain Service Senior Resident @ [phone] Subjective: Passing gas and having regular BMs. Pt concerned about pain control as epidural is being removed today. Objective: Temp: [98.1 F (36.7 C)-98.6 F (37 C)] 98.6 F (37 C) Pulse (Heart Rate): [77-91] 77 Resp Rate: [12-16] 12 BP: (93-107)/(52-63) 107/56 O2 Sat (%): [96 %-99 %] 96 % I/O last 3 completed shifts: In: 2738.7 [P.O.:1000; I.V.:1517.9; IV Piggyback:220.8] Out: 1520 [Urine:1350; Other:170] Bun/Creat/Cl/CO2/Glucose: 3/0.50/106/25/89 (05/28 312) WBC/Hgb/Hct/Plts: 6.07/9.8/30.5/374 (05/28 312) Na/K+/Phos/Mg/Ca: 138/4.1/4.9/1.8/8.6 (05/28 312) Physical Assessment General: NAD, obese HEENT: EOMI, atraumatic, normocephalic Neuro: a+ox 4, speech clear and appropriate Respiratory: regular, unlabored, room air Abdomen: soft, slightly distended, appropriately tender. Midline incision sealed with kike c/d/i and without edema, erythema, exudate, or ecchymosis. Inferior portion of incision with griselda drain and dressing c/d/i. JR with serosanguinous output. Assessment/Plan: Zainab Swift is a 27 y.o. 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 PMH: anxiety, borderline personality disorder, depression, GERD 1. Appendiceal NET - 6 Days Post-Op OOB to chair TID with ambulation at least 4x/day. Continue aggressive pulmonary toilet. Will discharge with 30 days total lovenox and protonix. Remove JR drain today and advance to regular diet. 2. Post op pain- remove epidural per APS; continue scheduled tylenol and motrin, prn dilaudid, oxycodone 3. Anxiety/depression/borderline personality disorder-prozac and zyprexa 4. Nutrition- DIET REGULAR No Carbonated Beverages; Oral Supplement 5. DVT/GI ppx-lovenox and protonix 6. Hypomagnesemia-replaced 7. Level of care-med/surg Disposition-await return of bowel function. Will tentatively plan for discharge tomorrow pending adequate pain control. Plan was discussed with Dr. Oanh Betancourt, BACKER UP-IT OPERATIONS MANAGER [facility] surgery G3 service [id number] Anesthesia Acute Pain Progress Note Zainab Swift is a 27 y.o. female who is 5 Days Post-Op from Procedure(s) (LRB): HYPERTHERMIA BY INTRACAVITARY PROBE (HIPEC) (N/A) COLECTOMY PARTIAL OPEN (Right) DEBULKING INTRA-ABDOMINAL/PELVIC/RETROPERIT FLEMING W/ OMENECTOMY & PELVIC PARA-AORTIC LYMPHADENECTOMY (N/A). She has an epidural in place for management of her acute post-operative pain. Pain assessment: Pain at rest: 2/10 Pain with activity: 5/10 PCEA helps: yes Side effects: none Pt has lewis: yes Pt has chest tube: no Epidural settings: Epidural Solution: 0.125 % bupivacaine + fentanyl 4 mcg/ml Basal: 6 ml/hour Bolus: 2 ml/hour Lockout: 20 minutes Total: 12 ml/hour Physical Exam: Vitals: 05/27/22 0744 BP: 109/70 Pulse: 72 Resp: 16 Temp: 98.4 F (36.9 C) Neuro: no focal deficits Catheter Site: Erythema: none Dressing: c/d/i Catheter: 10cm at skin (5.5cm in space) Impression: Epidural working well. Pain well-managed. PCEA: 4 administered, 4 pushes. Has required 0 additional OMEs over the last 24 hours. Plan: - Continue current regimen - Plan to pull epidural tomorrow - Please hold Lovenox 40mg 12 hours before epidural removal. OK to restart Lovenox 4 hours after removal. Please page acute pain service at [phone] or call [phone] with any questions or concerns. Yann Burr MD PGY-1 Anesthesiology Acute Pain Service Attending Addendum I personally examined and evaluated the patient. I reviewed the case and medical record with the resident. Based on the ROS, History, and Exam, I agree with the medical decision making. Beck Urban M.D. Subjective: Passed gas yesterday and had 3 BMs. NG removed yesterday. Denies nausea. Pain controlled. Objective: Temp: [97.9 F (36.6 C)-98.5 F (36.9 C)] 98.1 F (36.7 C) Pulse (Heart Rate): [71-86] 71 Resp Rate: [14-16] 16 BP: (103-120)/(51-76) 103/51 O2 Sat (%): [96 %-99 %] 97 % I/O last 3 completed shifts: In: 1754 [P.O.:150; I.V.:1452.7; IV Piggyback:151.3] Out: 2800 [Urine:2650; Other:150] Bun/Creat/Cl/CO2/Glucose: 3/0.49/105/26/93 (05/27 339) WBC/Hgb/Hct/Plts: 6.21/10.1/31.1/344 (05/27 339) Na/K+/Phos/Mg/Ca: 138/4.0/4.5/1.9/8.6 (05/27 339) Physical Assessment General: NAD, obese HEENT: EOMI, atraumatic, normocephalic Neuro: a+ox 4, speech clear and appropriate Respiratory: regular, unlabored, room air Abdomen: soft, slightly distended, appropriately tender. Midline incision sealed with kike c/d/i and without edema, erythema, exudate, or ecchymosis. Inferior portion of incision with griselda drain and dressing c/d/i. JR with serosanguinous output. Assessment/Plan: Zainab Swift is a 27 y.o. 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 PMH: anxiety, borderline personality disorder, depression, GERD 1. Appendiceal NET - 5 Days Post-Op OOB to chair TID with ambulation at least 4x/day. Continue aggressive pulmonary toilet. Will discharge with 30 days total lovenox and protonix. 2. Post op pain-epidural managed by APS, continue scheduled tylenol and motrin. Will tentatively plan for removal of epidural 05/28. 3. Anxiety/depression/borderline personality disorder-prozac and zyprexa 4. Nutrition- DIET CLEAR LIQUID Oral Supplement; No Carbonated Beverages 5. DVT/GI ppx-lovenox and protonix 6. Hypomagnesemia-replaced 7. Level of care-med/surg 8. Disposition-await return of bowel function. Will tentatively plan for discharge later this week if tolerating regular diet and on an adequate pain medication regimen. Plan was discussed with [facility] surgery G3 service [id number] Psychosocial Assessment Per chart review, patient is a is a 27 y.o. 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 PMH: anxiety, borderline personality disorder, depression, GERD SW met with patient to introduce self, explain social work supervisor role during inpatient stay, and answer patient questions. Patient was alert and oriented x4 and agreeable to SW visit. Information Source Information Source: patient , review of medical record, spouse Information Source Name: Arlette Swift Information Source Number: see demographics Contact Information Cash Management Coordinator Name: Pinky Smith RN [facility] Cash Management Coordinator's Social Work Contact Name: Bailey WILLAMS [facility] Town Administrator's Living Environment Lives With: spouse Living Arrangements: house (one story house wiith 3 Steps to enter) Provides Primary Care For: no one Primary Care Provided By: spouse/significant other, self Support System: Immediate family Able to Return to Prior Arrangements: yes Employment/Financial Employed?: Yes Employment Details: [employer]/Financial Comments: also works Source Of Income: salary/wages Financial Concerns: none Cognitive/Perceptual/Developmenta l Current Mental Status/Cognitive Functioning: no deficits noted Recent Changes in Mental Status/Cognitive Functioning: no changes Emotional/Psychological Affect: no deficits noted Mood: congruent to situation Verbal Skills: no deficits noted Current Interpersonal Conduct/Behavior: appropriate to situation Mental Health Conditions/Symptoms: personality disorder, depression, anxiety disorder Thought Process Alterations: no deficits noted Previous Mental Health Treatment: none Patient Coping/Stress Concerns Patient Coping/Stress Concerns: No Patient Personal Strengths: able to adapt, strong support system, expressive of needs Sources Of Support: spouse Reaction To Health Status: accepting, hopeful Understanding Of Condition And Treatment: adequate understanding of medical condition, adequate understanding of treatment Caregiver Coping/Stress Concerns Primary Caregiver Strengths: positive attitude, able to adapt, resourceful, expressive of needs, motivated Sources Of Support: spouse Reaction To Health Status: accepting, motivated Understanding Of Condition And Treatment: adequate understanding of medical condition, adequate understanding of treatment Pt report she has hx of Depression, Anxiety and Borderline Personality Disorder. Pt report she stop taking her medications about a month ago due to life stressors and weight gain from medications. Pt and report at this time they want to focus ion her recover for this surgery first as she has been coping well with life stressors without her medications. Pt report if she feels he needs her medications she can call her PCP to get the prescribe again. Advance Directives: Per chart review, patient does not have any advance directives on file, however, patient reports that they have already completed advance directives and states the document(s) are at home. SW reviewed that without completed document on file, per [place] Law, spouse, Phill Swift, (ph: [phone]) would be their Legal NOK for decision making. SW requested patient provide the hospital with a copy of the document when possible so that it can be scanned into their medical record. Patient agreeable to this plan. Legal NOK: Pt's is her LNOK. Substance Use: None Reported Community Resources: None Provided nor needed at this time. Home Health / DME: See PCRM Note for more information. Health Insurance / Rx: [id number] [place] [address] [address] [facility] Anticipated Discharge Plan: Pt report she plans to return home with care and transportation provided by her . Medical Team Considerations: None SW Interventions/Recommendations: Service SW name and contact information placed on white board in patient's room to contact as needed. SW will continue to remain available to provide assistance and support as needed during inpatient stay. Bailey Magallanes, FURNACE ERECTOR, HIGH RAW SUGAR BOILER SONC and HPB Town Administrator Pager: [phone] For Evening (4:30pm-8am) and Weekend SW needs please call [phone] or page [phone] Anesthesia Acute Pain Progress Note Zainab Swift is a 27 y.o. female who is 4 Days Post-Op from Procedure(s) (LRB): HYPERTHERMIA BY INTRACAVITARY PROBE (HIPEC) (N/A) COLECTOMY PARTIAL OPEN (Right) DEBULKING INTRA-ABDOMINAL/PELVIC/RETROPERIT FLEMING W/ OMENECTOMY & PELVIC PARA-AORTIC LYMPHADENECTOMY (N/A). She has an epidural in place for management of her acute post-operative pain. Pain assessment: Pain at rest: 4/10 Pain with activity: 5/10 PCEA helps: yes Side effects: none Pt has lewis: yes Pt has chest tube: no Epidural settings: Epidural Solution: 0.125 % bupivacaine + fentanyl 4 mcg/ml Basal: 6 ml/hour Bolus: 2 ml/hour Lockout: 20 minutes Total: 12 ml/hour Physical Exam: Vitals: 05/26/22 0736 BP: 115/76 Pulse: 86 Resp: 14 Temp: 98.4 F (36.9 C) Neuro: no focal deficits Catheter Site: Erythema: none Dressing: c/d/i Catheter: 10cm at skin (5.5cm in space) Impression: Epidural working well. Pain well-managed. PCEA: 2 administered, 2 pushes. Has required 0 additional OMEs over the last 24 hours. Plan: - Continue current regimen Please page acute pain service at [phone] or call [phone] with any questions or concerns. Yann Burr MD PGY-1 Anesthesiology Associated attestation - Ilia Oliva MD - 05/26/2022 12:15 PM EST Acute Pain Service Attending Addendum: I personally examined and evaluated the patient. I reviewed the case and medical record with the resident. Based on the history and exam, I agree with the medical decision making. Ilia J. Oliva, M.D. Subjective: No acute events overnight. Pain controlled but feels bloated in abdomen. Objective: Temp: [98.2 F (36.8 C)-98.4 F (36.9 C)] 98.4 F (36.9 C) Pulse (Heart Rate): [78-88] 86 Resp Rate: [14-16] 14 BP: (95-126)/(57-76) 115/76 O2 Sat (%): [96 %-100 %] 98 % I/O last 3 completed shifts: In: 2196.7 [I.V.:1912; NG/GT:130; IV Piggyback:154.7] Out: 2265 [Urine:2000; Other:265] Bun/Creat/Cl/CO2/Glucose: 3/0.48/102/23/154 (05/26 425) WBC/Hgb/Hct/Plts: 7.91/10.0/31.5/327 (05/26 425) Na/K+/Phos/Mg/Ca: 134/4.1/3.4/1.8/8.4 (05/26 425) Physical Assessment General: NAD HEENT: EOMI, atraumatic, normocephalic Neuro: a+ox 4, speech clear and appropriate Respiratory: regular, unlabored, Abdomen: soft, distened, appropriately tender. midline Incision is sealed with kike C/D/I. No edema, erythema, exudate, or ecchymosis. Inferior portion of incision with griselda drain. JR with serosanguinous output. NG with bilious output. : lewis removed 05/24. Voiding appropriately. Assessment/Plan: Zainab Swift is a 27 y.o. female who has a hx of appendiceal NET is POD 4 from right hemicolectomy and partial omentectomy, pelvic para-aortic lymphadenectomy PMH:Depression, GERD, Borderline personality disorder anxiety 1. Appendiceal NET - 4 Days Post-Op - continue aggressive pulmonary tolilet. Continue NG for decompression until return of bowel function. Consider dulcolax suppository tomorrow if no return of bowel function. 2. Post op pain- epidural managed by APS, scheudled tylenol and motrin. PRN oxycodone and dilaudid. 3. Anxiety/depression/boarderline personality disorder- continue home Prozac and zyprexa 4. Nutrition- DIET NPO with meds 5. Hypomagnesemia- replaced 6. Nausea- controlled with scopolamine patch. PRN zofan 7. Mobility- OOB to chair TID with ambulation at least 4x daily. 8. DVT/GI ppx- lovenox/Protonix. 9. Level of care- med surg 10. Disposition- awaiting return of bowel function. Plan for discharge later this week if able to tolerate regular diet and pain controlled. Plan was discussed and patient was physically evaluated by the attending physician. Jennifer Perez Subjective: Nausea overnight. Pain controlled. Feels bloated. Objective: Temp: [98.2 F (36.8 C)-98.4 F (36.9 C)] 98.4 F (36.9 C) Pulse (Heart Rate): [78-90] 88 Resp Rate: [16] 16 BP: (95-126)/(57-76) 126/70 O2 Sat (%): [96 %-100 %] 96 % I/O last 3 completed shifts: In: 868.1 [I.V.:803.5; IV Piggyback:64.6] Out: 2760 [Urine:2450; Other:310] Bun/Creat/Cl/CO2/Glucose: 3/0.48/102/23/154 (05/26 425) WBC/Hgb/Hct/Plts: 7.91/10.0/31.5/327 (05/26 425) Na/K+/Phos/Mg/Ca: 134/4.1/3.4/1.8/8.4 (05/26 425) Physical Assessment General: NAD, obese HEENT: EOMI, atraumatic, normocephalic Neuro: a+ox 4, speech clear and appropriate Respiratory: regular, unlabored, room air Abdomen: soft, slightly distended, appropriately tender. Midline incision sealed with kike c/d/i and without edema, erythema, exudate, or ecchymosis. Inferior portion of incision with griselda drain and dressing c/d/i. JR with serosanguinous output. NG with bilious output. Assessment/Plan: Zainab Swift is a 27 y.o. 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 PMH: anxiety, borderline personality disorder, depression, GERD 1. Appendiceal NET - 4 Days Post-Op OOB to chair TID with ambulation at least 4x/day. Continue aggressive pulmonary toilet. Continue NG for decompression until return of bowel function. Will discharge with 30 days total lovenox and protonix. 2. Post op pain-epidural managed by APS, continue scheduled tylenol and motrin. 3. Anxiety/depression/borderline personality disorder-prozac and zyprexa 4. Nutrition- DIET NPO with meds 5. DVT/GI ppx-lovenox and protonix 6. Hypomagnesemia-replaced 7. Level of care-med/surg 8. Disposition-await return of bowel function. Will tentatively plan for discharge later this week if tolerating regular diet and on an adequate pain medication regimen. Plan was discussed with Dr. Oanh Colón APRN-[facility] surgery G3 service [id number] Anesthesia Acute Pain Progress Note Zainab Swift is a 27 y.o. female who is 3 Days Post-Op from Procedure(s) (LRB): HYPERTHERMIA BY INTRACAVITARY PROBE (HIPEC) (N/A) COLECTOMY PARTIAL OPEN (Right) DEBULKING INTRA-ABDOMINAL/PELVIC/RETROPERIT FLEMING W/ OMENECTOMY & PELVIC PARA-AORTIC LYMPHADENECTOMY (N/A). She has an epidural in place for management of her acute post-operative pain. Pain assessment: Pain at rest: 2/10 Pain with activity: 5/10 PCEA helps: yes Side effects: none Pt has lewis: yes Pt has chest tube: no Epidural settings: Epidural Solution: 0.125 % bupivacaine + fentanyl 4 mcg/ml Basal: 6 ml/hour Bolus: 2 ml/hour Lockout: 20 minutes Total: 12 ml/hour Physical Exam: Vitals: 05/25/22 0808 BP: 118/73 Pulse: 90 Resp: 16 Temp: 98.4 F (36.9 C) Neuro: no focal deficits Catheter Site: Erythema: none Dressing: c/d/i Catheter: 11cm at skin (5.5cm in space) Impression: Epidural working well. Pain well-managed. PCEA: 8 administered, 8 pushes. Has required 0 additional OMEs over the last 24 hours. Plan: - Continue current regimen Please page acute pain service at [phone] or call [phone] with any questions or concerns. Yann Burr MD PGY-1 Anesthesiology Acute Pain Service Attending Addendum I personally examined and evaluated the patient. I reviewed the case and medical record with the resident. Based on the ROS, History, and Exam, I agree with the medical decision making. Beck Urban M.D. Subjective: No acute events overnight. Pain controlled but feels bloated in abdomen. Objective: Temp: [98.5 F (36.9 C)-99.6 F (37.6 C)] 98.5 F (36.9 C) Pulse (Heart Rate): [93-105] 93 Resp Rate: [12-18] 14 BP: (105-115)/(59-68) 115/63 O2 Sat (%): [92 %-98 %] 92 % I/O last 3 completed shifts: In: 2563.4 [I.V.:1919.9; IV Piggyback:643.5] Out: 3380 [Urine:3050; Other:330] Bun/Creat/Cl/CO2/Glucose: 2/0.51/104/24/98 (05/25 219) WBC/Hgb/Hct/Plts: 9.85/9.8/31.7/292 (05/25 219) Na/K+/Phos/Mg/Ca: 137/4.0/3.2/1.8/8.5 (05/25 219) Physical Assessment General: NAD HEENT: EOMI, atraumatic, normocephalic Neuro: a+ox 4, speech clear and appropriate Respiratory: regular, unlabored, Abdomen: soft, distened, appropriately tender. midline Incision is sealed with kike C/D/I. No edema, erythema, exudate, or ecchymosis. Inferior portion of incision with griselda drain. JR wiwth serosanguinous output. NG with bilious output. : lewis removed 05/24. Voiding appropriately. Assessment/Plan: Zainba Swift is a 27 y.o. female who has a hx of appendiceal NET is POD 3 from right hemicolectomy and partial omentectomy, pelvic para-aortic lymphadenectomy PMH:Depression, GERD, Borderline personality disorder anxiety 1. Appendiceal NET - 3 Days Post-Op - continue aggressive pulmonary tolilet. Continue NG for decompression until return of bowel function. Consider dulcolax suppository tomorrow if no return of bowel function. 2. Post op pain- epidural managed by APS, scheudled tylenol and motrin. PRN oxycodone and dilaudid. 3. Anxiety/depression/boarderline personality disorder- continue home Prozac and zyprexa 4. Nutrition- DIET NPO with meds 5. Hypomagnesemia- replaced 6. Nausea- controlled with scopolamine patch. PRN zofan 7. Mobility- OOB to chair TID with ambulation at least 4x daily. 8. DVT/GI ppx- lovenox/Protonix. 9. Level of care- med surg 10. Disposition- awaiting return of bowel function. Plan for discharge later this week if able to tolerate regular diet and pain controlled. Plan was discussed and patient was physically evaluated by the attending physician. Jennifer Perez Attending Physician Note I interviewed and examined this patient with the NETWORK PROGRAMMER/fellow/resident. I reviewed the history and exam detailed in the note and have edited it as necessary. I agree with the medical decision making unless otherwise noted below. The patient is doing well. Her pain is well controlled. She is mildly distended on exam. We will continue NPO with NGT until return of bowel function. Suman Baker MD/PhD brazing machine operator Division of Surgical Oncology Department of Surgery Subjective: No acute events overnight. Pain controlled. Feels bloated. Objective: Temp: [98.5 F (36.9 C)-99.6 F (37.6 C)] 98.5 F (36.9 C) Pulse (Heart Rate): [93-105] 93 Resp Rate: [12-18] 14 BP: (105-115)/(59-68) 115/63 O2 Sat (%): [92 %-98 %] 92 % I/O last 3 completed shifts: In: 2563.4 [I.V.:1919.9; IV Piggyback:643.5] Out: 3380 [Urine:3050; Other:330] Bun/Creat/Cl/CO2/Glucose: 2/0.51/104/24/98 (05/25 219) WBC/Hgb/Hct/Plts: 9.85/9.8/31.7/292 (05/25 219) Na/K+/Phos/Mg/Ca: 137/4.0/3.2/1.8/8.5 (05/25 219) Physical Assessment General: NAD, obese HEENT: EOMI, atraumatic, normocephalic Neuro: a+ox 4, speech clear and appropriate Respiratory: regular, unlabored, room air Abdomen: soft, slightly distended, appropriately tender. Midline incision sealed with kike c/d/i and without edema, erythema, exudate, or ecchymosis. Inferior portion of incision with griselda drain and dressing c/d/i. JR with serosanguinous output. NG with bilious output. Assessment/Plan: Zainab Swift is a 27 y.o. 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 PMH: anxiety, borderline personality disorder, depression, GERD 1. Appendiceal NET - 3 Days Post-Op OOB to chair TID with ambulation at least 4x/day. Continue aggressive pulmonary toilet. Continue NG for decompression until return of bowel function. Will discharge with 30 days total lovenox and protonix. Will consider dulcolax suppository tomorrow. 2. Post op pain-epidural managed by APS, continue scheduled tylenol and motrin. 3. Anxiety/depression/borderline personality disorder-prozac and zyprexa 4. Nutrition- DIET NPO with meds 5. DVT/GI ppx-lovenox and protonix 6. Hypomagnesemia-replaced 7. Level of care-med/surg 8. Disposition-await return of bowel function. Will tentatively plan for discharge later this week if tolerating regular diet and on an adequate pain medication regimen. Plan was discussed with Dr. Oanh Colón, BACKER UP-IT OPERATIONS MANAGER [facility] surgery G3 service [id number] [facility] Surgery Note Subjective: Patient doing well this morning. No GI function. Pain well controlled with PCEA. No nausea. Was able to ambulate yesterday. Given 1L bolus and 500 albumin overnight for low UOP and mild tachycardia with good response. Objective: Vitals: 05/24/22 0619 BP: 103/59 Pulse: 115 Resp: 18 Temp: 98.5 F (36.9 C) Intake/Output Summary (Last 24 hours) at 05/24/2022 0941 Last data filed at 05/24/2022 0812 Gross per 24 hour Intake 4879.35 ml Output 2575 ml Net 2304.35 ml General: NAD Respiratory: breathing comfortably CV: regular rate Abd: soft, appropriate incisional tenderness, distended, incision clean/dry/intact, drain serosanguinous Extrem: FROM Skin: no rashes Assessment: 27F POD2 from R hemicolectomy, omentectomy, and HIPEC for appendiceal NET. Plan: -Continue NGT today. NPO with ice chips -discontinue lewis today -remove griselda drain from subcutaneous area -Continue PCEA, tylenol, and ibuprofen -decrease IVF to 75 ml/hr today -OOB and ambulate today -Replete electrolytes as needed. -Seen and examined with Dr. Kaylee Carey MD Surgical Oncology Fellow Anesthesia Acute Pain Progress Note Zainab Swift is a 27 y.o. female who is 2 Days Post-Op from Procedure(s) (LRB): HYPERTHERMIA BY INTRACAVITARY PROBE (HIPEC) (N/A) COLECTOMY PARTIAL OPEN (Right) DEBULKING INTRA-ABDOMINAL/PELVIC/RETROPERIT FLEMING W/ OMENECTOMY & PELVIC PARA-AORTIC LYMPHADENECTOMY (N/A). She has an epidural in place for management of her acute post-operative pain. Pain assessment: Pain at rest: 2/10 Pain with activity: 6/10 PCEA helps: yes Side effects: none Pt has lewis: yes Pt has chest tube: no Epidural settings: Epidural Solution: 0.125 % bupivacaine + fentanyl 4 mcg/ml Basal: 6 ml/hour Bolus: 2 ml/hour Lockout: 20 minutes Total: 12 ml/hour Physical Exam: Vitals: 05/24/22 0619 BP: 103/59 Pulse: 115 Resp: Temp: Neuro: no focal deficits Catheter Site: Erythema: none Dressing: c/d/i Catheter: 11.5cm at skin (5.5cm in space) Impression: Epidural working well. Pain well-managed. PCEA: 6 administered, 6 pushes. Has required 7.5 additional OMEs over the last 24 hours. Plan: - Continue current regimen Please page acute pain service at [phone] or call [phone] with any questions or concerns. Yann Burr MD PGY-1 Anesthesiology Acute Pain Service Attending Addendum: I personally examined and evaluated the patient. I reviewed the case and medical record with the resident. Based on the history and exam, I agree with the medical decision making. Lydia Lassiter M.D. [facility] Surgery Note Subjective: Patient doing well this morning. No GI function. Pain well controlled with PCEA. No nausea. Objective: Vitals: 05/23/22 0824 BP: 112/61 Pulse: 104 Resp: 20 Temp: 98.4 F (36.9 C) Intake/Output Summary (Last 24 hours) at 05/23/2022 0932 Last data filed at 05/23/2022 0700 Gross per 24 hour Intake 8984.52 ml Output 2495 ml Net 6489.52 ml General: NAD Respiratory: breathing comfortably CV: regular rate Abd: soft, mildly distended, appropriately tender, dressing with some serosanguinous drainage, but intact NGT in place, Lewis in place with clear urine Extrem: FROM Skin: no rashes Assessment: 27F POD1 from R hemicolectomy, omentectomy, and HIPEC for appendiceal NET. Plan: -Continue NGT today. NPO with ice chips -Continue lewis today -Continue PCEA, tylenol, and ibuprofen -OOB and ambulate today -Replete electrolytes as needed. -Seen and examined with Dr. Kaylee Carey MD Surgical Oncology Fellow Anesthesia Acute Pain Progress Note Zainab Swift is a 27 y.o. female who is 1 Day Post-Op from Procedure(s) (LRB): HYPERTHERMIA BY INTRACAVITARY PROBE (HIPEC) (N/A) COLECTOMY PARTIAL OPEN (Right) DEBULKING INTRA-ABDOMINAL/PELVIC/RETROPERIT FLEMING W/ OMENECTOMY & PELVIC PARA-AORTIC LYMPHADENECTOMY (N/A). She has an epidural in place for management of her acute post-operative pain. Pain assessment: Pain at rest: 2/10 Pain with activity: 5/10 PCEA helps: yes Side effects: none Pt has lewis: yes Pt has chest tube: no Epidural settings: Epidural Solution: 0.125 % bupivacaine + fentanyl 4 mcg/ml Basal: 6 ml/hour Bolus: 2 ml/hour Lockout: 20 minutes Total: 12 ml/hour Physical Exam: Vitals: 05/23/22 0824 BP: 112/61 Pulse: 104 Resp: 20 Temp: 98.4 F (36.9 C) Neuro: no focal deficits Catheter Site: Erythema: none Dressing: c/d/i Catheter: 12cm at skin (5.5cm in space) Impression: Epidural working well. Pain well-managed. PCEA: 5 administered, 5 pushes. Has required 0 additional OMEs over the last 24 hours. Plan: - Continue current regimen Please page acute pain service at [phone] or call [phone] with any questions or concerns. Yann Burr MD PGY-1 Anesthesiology Acute Pain Service Attending Addendum I personally examined and evaluated the patient. I reviewed the case and medical record with the resident. Based on the ROS, History, and Exam, I agree with the medical decision making. Beck Urban M.D. Surgical Oncology Post-Op Check Note Zainab Swift is a 27 y.o. yr old female, who is now POD#0 s/p Procedure(s) (LRB): HYPERTHERMIA BY INTRACAVITARY PROBE (HIPEC) (N/A) COLECTOMY PARTIAL OPEN (Right) DEBULKING INTRA-ABDOMINAL/PELVIC/RETROPERIT FLEMING W/ OMENECTOMY & PELVIC PARA-AORTIC LYMPHADENECTOMY (N/A). There were no complications to the procedure, and tolerated it well. Arrived to the floor in stable condition. S: Patient is doing well. Pain well controlled. Voiding adequately via lewis. JR SS output. Island dressing with staining and griselda drain underneath. O: Vitals: 05/22/22 1515 BP: Pulse: Resp: Temp: 99.2 F (37.3 C) Exam: GEN: NAD, laying comfortably in bed CV: RRR, HDS Pulm: no respiratory distress Abd: Soft, tender to palpation, JR drain with SS output, island dressing with staining, griselda underneath Ext: No LE swelling/edema, distal pulses intact Neuro: No focal deficits : Lewis with yellow urine Assessment: 27 y.o. yr old female now POD#0 s/p Procedure(s) (LRB): HYPERTHERMIA BY INTRACAVITARY PROBE (HIPEC) (N/A) COLECTOMY PARTIAL OPEN (Right) DEBULKING INTRA-ABDOMINAL/PELVIC/RETROPERIT FLEMING W/ OMENECTOMY & PELVIC PARA-AORTIC LYMPHADENECTOMY (N/A). Currently stable on the floor. Plan: - DIET NPO with meds - Pain ctrl: Tylenol, Dilaudid, Ibuprofen, Oxycodone, Epidural - Lovenox - mIVF @ 125mL/hr - Maintain JR drain, wick drain, NGT, lewis - Patient advised to call with any concerns - Will continue to monitor Anesthesia Acute Pain Progress Note Zainab Swift is a 27 y.o. female who is Day of Surgery from Procedure(s) (LRB): HYPERTHERMIA BY INTRACAVITARY PROBE (HIPEC) (N/A) COLECTOMY PARTIAL OPEN (Right) DEBULKING INTRA-ABDOMINAL/PELVIC/RETROPERIT FLEMING W/ OMENECTOMY & PELVIC PARA-AORTIC LYMPHADENECTOMY (N/A). She has an epidural in place for management of her acute post-operative pain. Pain assessment: Pain: 310 well-controlled PCEA helps: yes Side effects: none Pt has lewis: yes Pt has chest tube: no Epidural settings: Epidural Solution: 0.125 % bupivacaine + fentanyl 4 mcg/ml Basal: 6 ml/hour Bolus: 2 ml/hour Lockout: 20 minutes Total: 12 ml/hour Physical Exam: Vitals: 05/22/22 1415 BP: 129/76 Pulse: 92 Resp: 22 Temp: 98.6 F (37 C) Neuro: no focal deficits Catheter Site: Erythema: none Dressing: c/d/i Catheter: 11.5cm at skin (5.5cm in space) Impression: Epidural working well. Pain well-managed. No level on left side, T8-T12 on right side. No interventions at this juncture given pain is well controlled. Has required 0 additional OMEs over the last 24 hours. Plan: - Continue current regimen Please page acute pain service at [phone] or call [phone] with any questions or concerns. Richard Bradshaw MD supervisor residential [facility] documented in this encounter [facility] 05-27-2022 Note Formatting of this n ote might be different from the original. Patient did well overnight. Patient pain mostly being controlled with epidural, but scheduled medications controlling her mild to moderate breakthrough pain. Patient with steady gait and only needig needing stand-by assistance. Patient now with bowel function and feeling hungry. Patient hopefully to have diet started today. Patient was able to be up in walking with stand-by assistance from multiple times yesterday. [facility] 05-26-2022 Consult note Formatting of th is note is different from the original. Vascular Access Procedure Note for Ultrasound Guided PIV Placement Assessment Zainab Swift seen and evaluated for peripheral IV insertion using ultrasound guidance. ID band present, allergies verified and patient/nurse questioned of limb precautions. Skin integrity assessed, no evidence of condition that would prevent safe insertion of a peripheral IV with ultrasound. Allergies: No Known Allergies Insertion 1. Ultrasound guided PIV: Peripheral IV placed per aseptic technique under ultrasound guidance on 1 attempt(s). []Obtained labs. Peripheral IV Line - Single Lumen 05/26/222026 forearm, anterior, right 1 3/4 in length;20 gauge (Active) 05/26/222026 Present On Admission : no Guiding Device: ultrasound Lumen 1: Location: forearm, anterior, right Device/Lot Number: [id number] catheter system Gauge/Length: 1 3/4 in length;20 gauge Unsuccessful Insertion Attempts: 1 Unsuccessful Attempt Location/Site: Pain Prevention/Patient Tolerance: distraction;tolerated well;appears comfortable Removal: Additional Comments: placed by Carla Mccurdy RN Lumen 2: Lumen 3: Peripheral IV Present on Admission: (Retired/Read Only) Location: (Retired/Read Only) Device: (Retired/Read Only) Gauge/Length: Consumer Affairs Director/Lot Number: Unsuccessful Insertion Attempts: (Retired/Read Only) Unsuccessful Attempt Locations: Pain Prevention: Patient Tolerance: Insertion: Removal Indication: Peripheral IV Location - Orientation: Peripheral IV Location: Insertion Site WDL WDL 05/26/222035 Site Preparation/Maintenance site cleansed: chlorhexidine solution;dressing: dry and intact;dressing: transparent semipermeable 05/26/222035 Securement catheter stabilization device, secured with 05/26/222035 Date Dressing Changed 05/26/22 05/26/222035 Lumen 1 Patency/Maintenance flushed without difficulty;blood return, able to obtain 05/26/222035 Date Lumen 1 Cap/Connector Changed/Applied 05/26/22 05/26/222035 Phlebitis 0-->no symptoms 05/26/222035 Infiltration 0-->no symptoms 05/26/222035 Positive blood return noted, flushes easily, no edema, or leakage noted. Stabilization device used to secure IV, occlusive dressing applied. Denies pain at site. Patient tolerated procedure well. Site dated and initialed. Yadira RN notified of procedure completion Education Patient/Family informed to notify nurse of any complications including pain, redness, swelling, or leakage post insertion. Pt safety room check completed prior to exiting room. [x]Call light. [x]Bed locked. [x]Bed low. [x]Tray table within reach. Thank you for allowing our team to participate in the care of this patient. Vascular Access Team [id number] [facility] 05-26-2022 Consult note Formatting of th is note is different from the original. Vascular Access Procedure Note for Ultrasound Guided PIV Placement Assessment Zainab Swift seen and evaluated for peripheral IV insertion using ultrasound guidance. ID band present, allergies verified and patient/nurse questioned of limb precautions. Skin integrity assessed, no evidence of condition that would prevent safe insertion of a peripheral IV with ultrasound. Allergies: No Known Allergies Insertion 1. Ultrasound guided PIV: Peripheral IV placed per aseptic technique under ultrasound guidance on 1 attempt(s). []Obtained labs. Peripheral IV Line - Single Lumen 05/26/222026 forearm, anterior, right 1 3/4 in length;20 gauge (Active) 05/26/222026 Present On Admission : no Guiding Device: ultrasound Lumen 1: Location: forearm, anterior, right Device/Lot Number: [id number] catheter system Gauge/Length: 1 3/4 in length;20 gauge Unsuccessful Insertion Attempts: 1 Unsuccessful Attempt Location/Site: Pain Prevention/Patient Tolerance: distraction;tolerated well;appears comfortable Removal: Additional Comments: placed by Carla Mccurdy RN Lumen 2: Lumen 3: Peripheral IV Present on Admission: (Retired/Read Only) Location: (Retired/Read Only) Device: (Retired/Read Only) Gauge/Length: Consumer Affairs Director/Lot Number: Unsuccessful Insertion Attempts: (Retired/Read Only) Unsuccessful Attempt Locations: Pain Prevention: Patient Tolerance: Insertion: Removal Indication: Peripheral IV Location - Orientation: Peripheral IV Location: Insertion Site WDL WDL 05/26/222035 Site Preparation/Maintenance site cleansed: chlorhexidine solution;dressing: dry and intact;dressing: transparent semipermeable 05/26/222035 Securement catheter stabilization device, secured with 05/26/222035 Date Dressing Changed 05/26/22 05/26/222035 Lumen 1 Patency/Maintenance flushed without difficulty;blood return, able to obtain 05/26/222035 Date Lumen 1 Cap/Connector Changed/Applied 05/26/22 05/26/222035 Phlebitis 0-->no symptoms 05/26/222035 Infiltration 0-->no symptoms 05/26/222035 Positive blood return noted, flushes easily, no edema, or leakage noted. Stabilization device used to secure IV, occlusive dressing applied. Denies pain at site. Patient tolerated procedure well. Site dated and initialed. Yadira EMERY notified of procedure completion Education Patient/Family informed to notify nurse of any complications including pain, redness, swelling, or leakage post insertion. Pt safety room check completed prior to exiting room. [x]Call light. [x]Bed locked. [x]Bed low. [x]Tray table within reach. Thank you for allowing our team to participate in the care of this patient. Vascular Access Team [id number] documented in this encounter [facility] 05-25-2022 Note Formatting of this n ote might be different from the original. 2124: Gabriella paged: Rm [phone], Kryling: FYI pt states that she can't tolerate taking the olanzapine disintegrating tablet because of the NG. Thanks [phone] [facility] 05-22-2022 Note Formatting of this n ote might be different from the original. Q1 safety rounds completed. Patient pain controlled with PRN medications. NPO with meds. Emesis x1. Family at bedside. Problem: Patient Care Overview Goal: Plan of Care Review Outcome: Met This Shift Goal: Individualization & Mutuality Outcome: Met This Shift Problem: Pain, Acute (Adult) Goal: Identify Related Risk Factors and Signs and Symptoms Description: Related risk factors and signs and symptoms are identified upon initiation of Human Response Clinical Practice Guideline (CPG) Outcome: Met This Shift Problem: Patient Care Overview Goal: Discharge Needs Assessment Outcome: Ongoing Goal: Interdisciplinary Rounds/Family Conf Outcome: Ongoing Problem: Pain, Acute (Adult) Goal: Acceptable Pain Control/Comfort Level Description: Patient will demonstrate the desired outcomes by discharge/transition of care. Outcome: Ongoing [facility] 05-22-2022 Note Formatting of this n ote might be different from the original. I certify that this patient requires inpatient services at this time. I anticipate the expected length of stay will include at least two midnights. Inpatient services are due to the following medical concerns appendiceal NET. Plans for post hospitalization care will be discharge to home. [facility] 05-22-2022 Note Formatting of this n ote is different from the original. 05/22/22 1608 Referral Information Arrived From home or self-care;operating room Readmission Information Was patient readmitted within 30 Days? No Information Source Information Source patient Information Source Name Zainab Swift-in person Information Source Number Demographics reviewed Outpatient Providers Outpatient Providers Updated In IHIS Yes Contact Information Cash Management Coordinator/SW Added to Care Team Yes This Route Inspector is Primary Cash Management Coordinator/SW Yes (Antonio Jiang RN [facility] [phone]) Cash Management Coordinator Name Pinky Barcenas RN [facility] Cash Management Coordinator's Social Work Contact Name Bailey WILLAMS, [facility] Town Administrator's Living Environment Lives With spouse Living Arrangements house Provides Primary Care For no one Primary Care Provided By self Support System Immediate family Able to Return to Prior Arrangements yes Functional Status Patient's Functional Status Prior To This Admission? Independent Are There Status Changes This Admisson? Yes Changes Observed Since Admission? Physical (surgical recovery) Who Is Patient's Primary Contact For Discharge Planning, Education And Care For Discharge? Phill Swift [phone] Can Support Person Meet The Care Needs Of The Patient? 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 Employment/Financial Concerns no Source Of Income salary/wages Financial Concerns none Insurance Medical Insurance Verified Yes Prescription Coverage Yes Pharmacy updated in [facility] Yes Initial Discharge Planning Home Care Services (FIRE CHIEF DEPUTY) No Home Therapies (FIRE CHIEF DEPUTY) None DME (FIRE CHIEF DEPUTY) None Medical Supplies (FIRE CHIEF DEPUTY) None Patient Goal for Discharge Return home with assistance from family and friends Anticipated discharge disposition Home Anticipated Services at Discharge Outpatient follow up Anticipated Changes Related to Illness none Current Discharge Risk high risk diagnoses (i.e., CHF, Stroke, DM, chronic pain, abdominal pain, nausea and vomiting) Transportation Available car Home Care Services (FIRE CHIEF DEPUTY) Additional Home Care Services (FIRE CHIEF DEPUTY) no Assessment/Concerns to be Addressed Concerns To Be Addressed denies needs/concerns at this time Zainab Swift is a 27 y.o. yr old female, who is now POD#0 s/p HYPERTHERMIA BY INTRACAVITARY PROBE (HIPEC) (N/A) COLECTOMY PARTIAL OPEN (Right), DEBULKING INTRA-ABDOMINAL/PELVIC/RETROPERIT FLEMING W/ OMENECTOMY & PELVIC PARA-AORTIC LYMPHADENECTOMY (N/A). PCRM Initial Assessment Met with Zainab to complete the initial assessment. Explained role and function of PCRM in multidisciplinary team. Contact number provided for questions. Demographic information reviewed with patient and confirmed as correct. Reason for Admission: planned surgical procedure Estimated length of stay: as medically indicated Advanced directives Patient does not have Advanced Directives on File Lines/Drains/Tubes Abdominal incision with dressing x 2 Griselda drain x 1-under distal dressing NG-low wall suction Lewis-straight drain Epidural-pain control Initial PCRM Discharge Planning Home with spouse Final plan will be determined closer to discharge, pending therapy and medical team recommendations. Patient/family verbalized understanding and agreement with the plan of care. Patient/family have no questions at this time. PCRM will continue to follow patient with multidisciplinary team for ongoing assessment of needs and for discharge planning. Medical team updated. [facility] 05-22-2022 Note Formatting of this n ote might be different from the original. 1512: Report called to Jevon EMERY on . All questions answered. 1514: Patient discharged from [facility] PACU per protocol. Patient transported via gurney with side rails up x2 with HOB>30 degrees to room 1204 [facility] by Natalia EMERY and Dang LISA. Family called to [facility]'s bedside. [facility] Note Formatting of this n ote might be different from the original. 1310: Patient arrives in [facility] PACU from OR via gurney with side rails up x2 with HOB >30 degrees, accompanied by Anesthesiologist: Vinicius Gupta DO; Chayo Benson MD Looper Fixer: VIJAYA Gamboa; VIJAYA Lopez Substation Operator Chief Assisting: Richard Bradshaw MD Operations Controller: Wali Art. Patient placed on monitors, VSS. Report received from anesthesia. Patient assessed, see assessment. 1427: PACU labs and abdominal xray for NG placement cleared by Miguel Betancourt at this time. [facility] 05-22-2022 Note Formatting of this n ote is different from the original. 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 JR drain placed in pelvis. SURGEON Surgeon(s) and Role: * Suman Baker MD, PhD - Primary ANESTHESIOLOGIST Anesthesiologist: Vinicius Gupta DO; Chayo Benson MD Looper Fixer: VIJAYA Gamboa; VIJAYA Lopez Substation Operator Chief Assisting: Richard Bradshaw MD Operations Controller: Wali Art SURGICAL STAFF Master At Arms: Piedad Maki RN; Rima Medel RN Relief Master At Arms: Suri Stockton RN Relief Scrub: Ghanshyam Townsend Scrub Person: Heidy Skelton; Tammy Lopez Resident Assisting: Rodolfo Arnold MD; Narciso Hong MD COMPLICATIONS None ESTIMATED BLOOD LOSS Minimal SPECIMENS . ID Type Source Tests Collected by Time Destination 1 : CALCIFORM LIGAMENT Permanent SURG PATH SURG PATH REQUEST Suman Bakre MD, PhD 05/22/2022 0831 2 : Omentum Permanent SURG PATH SURG PATH REQUEST Suman Baker MD, PhD 05/22/2022 0854 3 : Peritoneal implant #1 Permanent SURG PATH SURG PATH REQUEST Suman Baker MD, PhD 05/22/2022 0900 4 : Peritoneal implant #2 Permanent SURG PATH SURG PATH REQUEST Suman Baker MD, PhD 05/22/2022 0902 5 : TERMINAL ILEUM AND COLON Permanent SURG PATH SURG PATH REQUEST Suman Baker MD, PhD 05/22/2022 0924 6 : PERITONEAL IMPLANT #3 Permanent SURG PATH SURG PATH REQUEST Suman Baker MD, PhD 05/22/2022 0936 7 : PERITONEAL IMPLANT #4 Permanent SURG PATH SURG PATH REQUEST Suman Baker MD, PhD 05/22/2022 0941 This procedure was not performed to treat colon cancer through resection Rodolfo Arnold MD May 22, 2022 1:[address] [facility] Work Phone: 05-22-2022 Note Formatting of this n ote is different from the original. 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 19 Fr drain in the pelvis coming out LLQ SURGEON Surgeon(s) and Role: * Suman Baker MD, PhD - Primary ANESTHESIOLOGIST Anesthesiologist: Vinicius Gupta DO; Chayo Benson MD Looper Fixer: VIJAYA Gamboa; VIJAYA Lopez Substation Operator Chief Assisting: Richard Bradshaw MD Operations Controller: Wali Art SURGICAL STAFF Master At Arms: Piedad Maki RN; Rima Medel RN Relief Master At Arms: Suri Stockton RN Relief Scrub: Ghanshyam Townsend Scrub Person: Heidy Skelton; Tammy Lopez Resident Assisting: Rodolfo Arnold MD; Narciso Hong MD COMPLICATIONS None ESTIMATED BLOOD LOSS 25 ml SPECIMENS ID Type Source Tests Collected by Time Destination 1 : CALCIFORM LIGAMENT Permanent SURG PATH SURG PATH REQUEST Suman Baker MD, PhD 05/22/2022 0831 2 : Omentum Permanent SURG PATH SURG PATH REQUEST Suman Baker MD, PhD 05/22/2022 0854 3 : Peritoneal implant #1 Permanent SURG PATH SURG PATH REQUEST Suman Baker MD, PhD 05/22/2022 0900 4 : Peritoneal implant #2 Permanent SURG PATH SURG PATH REQUEST Suman Baker MD, PhD 05/22/2022 0902 5 : TERMINAL ILEUM AND COLON Permanent SURG PATH SURG PATH REQUEST Suman Baker MD, PhD 05/22/2022 0924 6 : PERITONEAL IMPLANT #3 Permanent SURG PATH SURG PATH REQUEST Suman Baker MD, PhD 05/22/2022 0936 7 : PERITONEAL IMPLANT #4 Permanent SURG PATH SURG PATH REQUEST Suman Baker MD, PhD 05/22/2022 0941 Colon Resection Operation performed with curative intent Yes Tumor Location Cecum Extent of colon and vascular resection Right hemicolectomy - ileocolic, right colic (if present) Narciso Hong MD May 22, 2022 1:[address] [facility] Work Phone: 05-22-2022 Note Formatting of this n ote is different from the original. SURGEONS: Suman Baker MD, PhD CASE MANAGER SPECIALIST SURGEON: Rodolfo Arnold MD PROCEDURE: - Exploratory laparotomy - Resection of falciform ligament - Omentectomy - Right hemicolectomy - Radical resesection of peritoneal tumor implant (10x5cm) - Resection of small peritoneal nodules - Insertion and removal of intraperitoneal catheter - Hyperthermic intraperitoneal chemoperfusion with MMC ANESTHESIA: GENERAL ESTIMATED BLOOD LOSS: 50 ml PREOPERATIVE DIAGNOSIS: LAMN and appendiceal NET POSTOPERATIVE DIAGNOSIS: LAMN and appendiceal NET INDICATION: Zainab Swift is a 27 y.o. female with a history of perforated LAMN with mucinous peritoneal spread and appendiceal NET. Following detailed discussion regarding the benefits and the risk, the patient was recommended and consented for CRS+HIPEC. FINDINGS: There was mucinous implants along the RLQ, pelvis and small bowel mesentery. PCI 6. CC 0. DETAILS OF THE OPERATION: The patient was verified in the preoperative area and consent was reviewed. She was brought the OR and initial timeout was performed to confirm correct patient, positioning, procedure, antibiotics, and anticipated operative time. SCDs were placed and were turned on. General anesthesia was induced without any issues and airway was secured with endotracheal tube. Nasogastric tube insertion was confirmed with return of gastric contents. Preoperative antibiotics was administered. The patient was positioned in a supine position with both arms out. We ensured that all of her pressure points were padded and protected. Her belly was prepped and drapped in standard sterile fashion. We performed a second timeout per standard procedure at the [facility]. We made a midline incision using a 10 blade.. The incision was carried down to the fascia. The fascia was excised and the peritoneum was entered sharply. We extended the incision inferiorly and superiorly. We then resected the falciform ligament. Examination of the abdominal cavity revealed mucinous implants in the RLQ, pelvis and in the distal small bowel mesentery. PCI was graded at 6. We began the operation by detaching the omentum off the transverse colon. We then took down the omentum from the greater curvature of the stomach using the ligasure device. The right gastroepiploic arcade was preserved. The omentum was then transected and passed off the field. Next, we exposed the ileocolic pedicle. A mesenteric window was created near the origin of the vessels. The peritoneum overlying the vessels was dissected using the Ligasure device. We circumferentially dissected the vessel and was taken with an endo-KARRIE sarmiento stapler device. Next, we began the [id number]-tl-rvjiudi dissection to mobilize the colonic mesentery. We carefully protected the right ureter and the duodenum through the dissection. Once we reached the lateral extent of our dissection, the proximal transverse colon was then retracted in caudad dissection, and its superior attachments including the hepatic flexure and the lateral peritoneal attachments of the right colon were divided using sharp dissection with the Ligasure. The mesentery of the terminal ileum was then freed from its retroperitoneal attachment. We ensured to include distal small bowel approximately 15 cm which was covered in mucinous implants. We identified the proximal transverse colon transection point proximal to the middle colic vessels and was divided with an endo-KARRIE sarmiento stapler. The terminal ileum was then divided with an endo-KARRIE sarmiento stapler. The remaining mesentery was then divided using the Ligasure, and the specimen was passed off the filed. We then proceeded with creating a [id number] functional end-to-end anastomosis between the distal ileum and proximal transverse colon using the endo-KARRIE sarmiento stapler. We placed a reinforcement 3-0 silk sutures at the apex of the anastomosis. The common enterotomy was closed with the TA stapler. The staple line was reinforced with 4-0 monocryl in a continuous fashion. We then focused our attention to the RLQ and pelvic peritoneum which was covered with mucinous implants. We resected an area of 10x5cm section to ensure complete resection. We then ran the bowel multiple times from the ligament of treitz to the anastomosis. There were sporadic smaller implants which were completely resected. At this point, we were satisfied with the cytoreduction and decided to move forth with hyperthermic intraperitoneal chemoperfusion. The inflow and outflow catheters were brought to the field. The outflow catheter was placed above the liver. The two inflow catheters were placed along the paracolic gutters. We incorporated the catheters within skin closure stitch using 1-0 nylon stitch. The exit sites of the catheters were reinforced with 2-0 prolene sutures. We then placed inflow and outflow temperature probes into the cannulas. The catheters were then attached to the perfusion circuit. The abdominal cavity was filled with heated 3L saline. Once the perfusion circuit was established with good return and the outflow temperature was 40 degrees celsius, we started our hyperthermic intraperitoneal chemoperfusion with 40 mg of mitomycin C (30 mg delivered at time 0 and 10 mg delivered at time 60 min) for total of 100 min. Following the perfusion, the midline incision was opened and the catheters were removed. We carefully inspected all the intraabdominal organs to ensure that there was no injury. We then placed a 19 Fr round channel drain in the pelvis. The fascia was closed with running 1-PDS x2. Skin incision was closed using skin stapler. The sponge, needle, and instrument counts were correct x2. The patient tolerated the procedure without any issues. The patient was extubated in the OR without any issues and was transported to the PACU for further recovery. I was present and participated for the entirety of the case. [facility] Work Phone: 05-22-2022 Nurse Surgical operation note 0815 Family notified of surgery start 102, 1211 Family updated 1228 Handoff report sent to PACU charge nurse 1255 PACU given notice of arrival 1309 Patient extubated and transported to PACU with anesthesia at bedside and on oxygen inhalation Rima Medel RN [facility] 05-22-2022 Nurse Note 0815 Family notified of surgery start 1021, 121 Family updated 1228 Handoff report sent to PACU charge nurse 1255 PACU given notice of arrival 1309 Patient extubated and transported to PACU with anesthesia at bedside and on oxygen inhalation Rima Medel RN documented in this encounter [facility] 05-22-2022 Note Formatting of this n ote is different from the original. WOC/ET Nursing Note: Patient seen for pre-op stoma marking. Assessed in sitting and lying positions. Marked with an X using a permanent marker. Marked in all four quadrants; within rectus muscle, within field of vision, and on flat pouching surfaces. Will follow for teaching after ostomy created. 05/22/22 06 General Pain Documentation (Adult, OB, Peds) Presence of Pain denies pain/discomfort Comfort/Acceptable General Pain Level/Goal 6 Incision (Adult, Pediatric) 04/21/22745 upper;medial abdomen laparoscopic puncture Placement Date/Time: 04/21/22745 Present On Admission : no Orientation: upper;medial Location: abdomen Incision Type: laparoscopic puncture Incision WDL WDL Incision (Adult, Pediatric) 04/21/2248 Left lateral abdomen laparoscopic puncture Placement Date/Time: 04/21/22747 Present On Admission : no Side: Left Orientation: lateral Location: abdomen Incision Type: laparoscopic puncture Incision WDL WDL Incision (Adult, Pediatric) 04/21/22748 lower;medial abdomen laparoscopic puncture Placement Date/Time: 04/21/22748 Present On Admission : no Orientation: lower;medial Location: abdomen Incision Type: laparoscopic puncture Incision WDL WDL Plan WOCT Visit Frequency Sat Last Date Seen 05/22/22 [facility] 05-22-2022 History and physical note Surgical Oncology Pre Procedure H&P Surgeon Suman Baker MD, PhD 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 with h/o appendiceal neuroendocrine tumor who presents today for CRS and HIPEC. She was last seen on 04/21/2022 for diagnostic laparoscopy with possible right hemicolectomy. During the operation, mucinous fluid and a peritoneal nodule suspicious for mucin was noted in the abdomen and right hemicolectomy was aborted. Pathology confirmed mucin present in the abdomen and it was recommended the patient proceed with CRS and HIPEC with right hemicolectomy. Pt was agreeable with this plan. Today pt reports feeling well. She recovered well from her diagnostic laparoscopy without complications. She states she has continued to have intermittent abdominal pain, increased diarrhea and has noticed intermittent flushing of her face. She completed the bowel prep for surgery today. She reports she had one episode of emesis while completing the bowel prep. Denies CP/SOB, F/C or trips to urgent care/ED since last being seen. Pathology: 04/21/2022 CYTOLOGIC DIAGNOSIS A. PERITONEAL FLUID (CYTOLOGY AND CELL BLOCK): FINAL DIAGNOSIS: Acellular Mucin Present. Note: Immunostains for BerEP4 and MOC31 are negative and immunostain for Calretinin highlights mesothelial cells. Pathologic Diagnosis A. Peritoneum, biopsy: Fibrovascular connective tissue with acellular mucin, reactive mesothelium and histiocytic aggregates (see Comment) Past Medical History Past Medical History: Diagnosis Date Anxiety Borderline personality disorder Depression GERD (gastroesophageal reflux disease) Past Surgical History Past Surgical History: Procedure Laterality Date COLECTOMY PARTIAL LAPAROSCOPIC N/A 04/21/2022 Laterality: N/A; Surgeon: Suman Baker MD, PhD; Location: [facility] MAIN OR COLONOSCOPY DIAGNOSTIC 04/08/2022 APPENDECTOMY LAPAROSCOPIC 02/03/2022 [place], [place] Family History Family History Problem Relation Age of Onset Cancer Maternal Aunt THYROID Leukemia Other Leukemia Other Breast Cancer Other Cancer Other Uterine Cancer Cousin Neuroendocrine cancer Social History reports that she has never smoked. She has never used smokeless tobacco. She reports that she does not currently use alcohol. She reports that she does not currently use drugs. Allergies No Known Allergies Medications Current Outpatient Medications Medication Sig Last Dose Start Date End Date Authorizing Provider acetaminophen 500 MG tablet 500 mg, Oral, EVERY 6 HOURS NEEDED Past Week Historical Provider bisacodyl [address] Take all 4 tablets at 11am the day before surgery 05/21/2022 04/23/22 Elsie aMson APRN-IT OPERATIONS MANAGER FLUoxetine 40 MG capsule 40 mg, Oral, DAILY 05/21/2022 Historical Provider ibuprofen 200 MG tablet 200 mg, Oral, EVERY 6 HOURS NEEDED Past Week Historical Provider OLANZapine 5 MG tablet 5 mg, Oral, AT BEDTIME 05/21/2022 Historical Provider omeprazole [address] capsule 20 mg, Oral, NEEDED 05/21/2022 Historical Provider polyethylene glycol 17 GM/SCOOP Powder powder 11 AM: Take entire contents over 2 hours as instructed. 05/21/2022 04/23/22 Elsie Mason APRN-IT OPERATIONS MANAGER Review of Systems Denies the following: Arrhythmias, bleeding disorders, asthma, COPD, DEEPA, seizure disorder, DM, HTN Gen - no ER visits, fevers, syncope or antibiotic therapy Cardiovascular - denies CP or palpitations Respiratory - denies SOB GI - +N/V/D (related to bowel prep), +abdominal pain (intermittent) Neuromuscular - denies neuropathy Peripheral Vascular - denies edema or claudication Renal - denies dysuria, hematuria, or flank pain Physical Exam BP 118/72 (BP Location: Right arm, BP Position: Lying) Pulse 83 Temp 98 F (36.7 C) (Oral) Resp 16 Ht 1.575 m (5' 2 ) Wt 76.2 kg (168 lb) SpO2 98% BMI 30.73 kg/m Smoking Status Never General: Alert and oriented, no acute distress. Cardio: S1S2 RRR Respiratory: Clear to Auscultation bilaterally. Neurological: No focal deficits. Abdomen: Well healed laparoscopic incisions. No open lesions. No distention or tenderness. Skin: Warm, dry. No rash. Extremities: No pain, numbness, pallor, rubor, or peripheral edema noted. Warm, dry with pedal pulses 2+. Lab Data: Lab Results Component Value Date WBC 8.50 03/19/2022 HGB 11.9 03/19/2022 HCT 37.9 03/19/2022 PLATELET 402 (H) 03/19/2022 MCV 83.8 03/19/2022 Lab Results Component Value Date SODIUM 139 03/19/2022 POTASSIUM 3.6 03/19/2022 CHLORIDE 100 03/19/2022 CO2 27 03/19/2022 BUN 10 03/19/2022 CREATSERUM 0.66 03/19/2022 Assessment 27 y.o. female with current complaint of Primary malignant neuroendocrine tumor of appendix . Here for planned surgical intervention. Pt completed bowel prep for surgery. Pt has no new complaints and denies CP, SOB, fever or chills. Plan Plan was developed by Suman Baker MD, PhD Pt to receive rocephin and flagyl as pre-operative antibiotics. Anticipate hospital admission after procedure today. We will proceed with surgery as surgical risks, benefits and consent were discussed by Suman Baker MD, PhD when they saw the patient in clinic on 04/14/2022. Pre-operative work up is wnl. All questions addressed to the patient's satisfaction. Liza Cisneros PA-C [facility] 05-22-2022 History and physical note Surgical Oncology Pre Procedure H&P Surgeon Suman Baker MD, PhD 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 with h/o appendiceal neuroendocrine tumor who presents today for CRS and HIPEC. She was last seen on 04/21/2022 for diagnostic laparoscopy with possible right hemicolectomy. During the operation, mucinous fluid and a peritoneal nodule suspicious for mucin was noted in the abdomen and right hemicolectomy was aborted. Pathology confirmed mucin present in the abdomen and it was recommended the patient proceed with CRS and HIPEC with right hemicolectomy. Pt was agreeable with this plan. Today pt reports feeling well. She recovered well from her diagnostic laparoscopy without complications. She states she has continued to have intermittent abdominal pain, increased diarrhea and has noticed intermittent flushing of her face. She completed the bowel prep for surgery today. She reports she had one episode of emesis while completing the bowel prep. Denies CP/SOB, F/C or trips to urgent care/ED since last being seen. Pathology: 04/21/2022 CYTOLOGIC DIAGNOSIS A. PERITONEAL FLUID (CYTOLOGY AND CELL BLOCK): FINAL DIAGNOSIS: Acellular Mucin Present. Note: Immunostains for BerEP4 and MOC31 are negative and immunostain for Calretinin highlights mesothelial cells. Pathologic Diagnosis A. Peritoneum, biopsy: Fibrovascular connective tissue with acellular mucin, reactive mesothelium and histiocytic aggregates (see Comment) Past Medical History Past Medical History: Diagnosis Date Anxiety Borderline personality disorder Depression GERD (gastroesophageal reflux disease) Past Surgical History Past Surgical History: Procedure Laterality Date COLECTOMY PARTIAL LAPAROSCOPIC N/A 04/21/2022 Laterality: N/A; Surgeon: Suman Baker MD, PhD; Location: [facility] MAIN OR COLONOSCOPY DIAGNOSTIC 04/08/2022 APPENDECTOMY LAPAROSCOPIC 02/03/2022 [place], [place] Family History Family History Problem Relation Age of Onset Cancer Maternal Aunt THYROID Leukemia Other Leukemia Other Breast Cancer Other Cancer Other Uterine Cancer Cousin Neuroendocrine cancer Social History reports that she has never smoked. She has never used smokeless tobacco. She reports that she does not currently use alcohol. She reports that she does not currently use drugs. Allergies No Known Allergies Medications Current Outpatient Medications Medication Sig Last Dose Start Date End Date Authorizing Provider acetaminophen 500 MG tablet 500 mg, Oral, EVERY 6 HOURS NEEDED Past Week Historical Provider bisacodyl [address] Take all 4 tablets at 11am the day before surgery 05/21/2022 04/23/22 Elsie Mason APRN-TASH FLUoxetine 40 MG capsule 40 mg, Oral, DAILY 05/21/2022 Historical Provider ibuprofen 200 MG tablet 200 mg, Oral, EVERY 6 HOURS NEEDED Past Week Historical Provider OLANZapine 5 MG tablet 5 mg, Oral, AT BEDTIME 05/21/2022 Historical Provider omeprazole [address] capsule 20 mg, Oral, NEEDED 05/21/2022 Historical Provider polyethylene glycol 17 GM/SCOOP Powder powder 11 AM: Take entire contents over 2 hours as instructed. 05/21/2022 04/23/22 Elsie Mason APRN-IT OPERATIONS MANAGER Review of Systems Denies the following: Arrhythmias, bleeding disorders, asthma, COPD, DEEPA, seizure disorder, DM, HTN Gen - no ER visits, fevers, syncope or antibiotic therapy Cardiovascular - denies CP or palpitations Respiratory - denies SOB GI - +N/V/D (related to bowel prep), +abdominal pain (intermittent) Neuromuscular - denies neuropathy Peripheral Vascular - denies edema or claudication Renal - denies dysuria, hematuria, or flank pain Physical Exam BP 118/72 (BP Location: Right arm, BP Position: Lying) Pulse 83 Temp 98 F (36.7 C) (Oral) Resp 16 Ht 1.575 m (5' 2 ) Wt 76.2 kg (168 lb) SpO2 98% BMI 30.73 kg/m Smoking Status Never General: Alert and oriented, no acute distress. Cardio: S1S2 RRR Respiratory: Clear to Auscultation bilaterally. Neurological: No focal deficits. Abdomen: Well healed laparoscopic incisions. No open lesions. No distention or tenderness. Skin: Warm, dry. No rash. Extremities: No pain, numbness, pallor, rubor, or peripheral edema noted. Warm, dry with pedal pulses 2+. Lab Data: Lab Results Component Value Date WBC 8.50 03/19/2022 HGB 11.9 03/19/2022 HCT 37.9 03/19/2022 PLATELET 402 (H) 03/19/2022 MCV 83.8 03/19/2022 Lab Results Component Value Date SODIUM 139 03/19/2022 POTASSIUM 3.6 03/19/2022 CHLORIDE 100 03/19/2022 CO2 27 03/19/2022 BUN 10 03/19/2022 CREATSERUM 0.66 03/19/2022 Assessment 27 y.o. female with current complaint of Primary malignant neuroendocrine tumor of appendix . Here for planned surgical intervention. Pt completed bowel prep for surgery. Pt has no new complaints and denies CP, SOB, fever or chills. Plan Plan was developed by Suman Baker MD, PhD Pt to receive rocephin and flagyl as pre-operative antibiotics. Anticipate hospital admission after procedure today. We will proceed with surgery as surgical risks, benefits and consent were discussed by Suman Baker MD, PhD when they saw the patient in clinic on 04/14/2022. Pre-operative work up is wnl. All questions addressed to the patient's satisfaction. Liza Cisneros PA-C documented in this encounter [facility] 05-21-2022 Hospital Discharge instructions Pinky Be RN - 05/21/2022 10:38 AM EDT Contacts: Suman Baker MD Office Number: [phone] Option 1 During office hours, Wednesday through Wednesday, 8:00 AM to 4:30 PM, call the office if you have any questions or concerns. After hours, weekends and holidays call the office number and you will be transferred to the After Hours Nurse Line. Call 911 for Emergencies. Your special education case manager (PCRM) has arranged your appointments for follow up based on your preference of where you would like to continue your care. If you are unable to attend appointments that have been arranged for you, it is your responsibility to call to reschedule at least 48 hours prior to the appointment date. Your After Visit Summary (AVS) has provided you with instructions for your discharge. It is your responsibility to ask questions if you have any. Please contact your medical care team at the numbers listed if you should have any additional questions. Notify Your Doctor or Nurse if you have any of the following: Deep Vein Thrombosis Symptoms Call your doctor or nurse right away if you have any signs of blood clots such as Tender, swollen or reddened areas anywhere in your leg. Numbness or tingling in your lower leg or calf, or at the top of your leg or groin. Skin on your leg looks pale or blue or feels cold to touch Chest pain or have trouble breathing Fever or chills Nausea and Vomiting Call your doctor or nurse if you have nausea and vomiting that continues more than 24 hours Unrelieved Pain Call your doctor or nurse if your pain gets worse or is not eased 1 hour after taking your pain medicine. Wound Infection Symptoms Call your doctor or nurse right away if you have signs of infection at your wound such as: More pain around the wound Change in the amount , color and odor of drainage The skin around the wound feels warm or has red streaks The wound separates or opens up You have a temperature greater than 101 Incision Care: If your surgical incision is closed with kike: The kike will be removed in the clinic. Keep your incision dry until kike are removed. Wash the incision gently and pat it dry. Do not soak incision even after staple removal until the wound is healed. Symptom Management: Anesthesia Recovery after General, Monitored, or Regional Anesthesia You should rest for [address], drink alcoholic beverages or make any important decisions during this period of time. General anesthesia may cause a sore throat, jaw discomfort, or muscle aches that can last for 1 to 2 days. Activity: Please follow these instructions: You may perform the following activities: Take rest periods during the day as needed. Walk as much as you can to increase your strength and endurance. Get 8 to 10 hours of sleep at night. Do not do the following: Lift, pull or move objects greater than 5 pounds No driving for two weeks or while on pain medication No strenuous activity for 6 weeks No pushing or pulling for 6 weeks. Bathing Restrictions: You may shower. No tub baths, swimming or hot tubs until your incision is healed. Diet: Your doctor has recommended that you follow these diet instructions at home. Refer to the patient education materials you received during your hospital stay. If you would like more nutrition counseling, ask your doctor about making an appointment with an outpatient dietitian. Resume previous diet You will find it easiest to tolerate small, frequent meals of soft foods (soup, eggs, pudding, oatmeal) when you first go home. Advance your diet as tolerated. Be sure to drink 8 oz. of water every 2 hours throughout the daytime to maintain adequate hydration. Medication: Pain Medication A prescription for pain medicine will be sent home with you. Do not drive while taking prescription pain medicine. Eat when taking pain medicines to avoid nausea. Watch for constipation. Eat plenty of fruits, vegetables, juices, and drink 6 to 8 glasses of water each day. If this medicine is too strong, or no longer needed, you may take an over the counter pain reliever such as ibuprofen (brand names: Advil or Motrin) OR extra strength acetaminophen (brand name: Extra Strength Tylenol). Follow the dosing instructions as the label directs. Do not take ibuprofen if you have stomach problems, stomach ulcers, or if you are on blood thinners, like Coumadin. Take a stool softener twice a day as long as you remain on pain medicine to avoid constipation. If you do not have a bowel movement within 5 days of your surgery, please take milk of magnesia. If you do not have a bowel movement within 12 hours of taking milk of magnesia, call the office. Lovenox Injection (Generic name: Enoxaparin) is a blood thinning medicine that has been prescribed for you to prevent and treat blood clots. This medication is administered by a subcutaneous injection. You will be taught how to administer the injections by your nurse prior to discharge. Make sure you understand all instructions before giving yourself an injection. Refer to your handouts about Lovenox/Enoxaparin and doing the injection. Your doctor will let you know how long you will need to be on this medication. While taking this medicine: Make sure your doctor and dentist are aware that you are on Lovenox. Ask your doctor or pharmacist before using any other medicine, including xbjg-fwm-dogujiy medicines, vitamins, and herbal products. Avoid taking aspirin or medicine that contains aspirin, while on a blood thinning medicine unless your doctor tells you to. Your doctor will need to check you often while you are on this medicine. Be sure to keep appointments. Call your doctor or nurse with other questions or concerns CANCER INFORMATION/RESOURCES For more information about your cancer diagnosis, treatment, and support, many resources are available. [facility] Information Call to request information or check hours. The [facility] [employer]: or , www.[facility] Classes: [facility] for Life, Integrative Care Monthly Classes [facility] Program offers a series of monthly classes about integrative care. Integrative care involves other care methods that may be used along with conventional cancer treatment. Learn about the role of exercise, diet and nutrition, manual and movement herapies as part of a comprehensive cancer care program. Classes also provide a chance to share thoughts and concerns with other cancer survivors, their families and friends. For more information, contact [employer] at or visit our website at www.[employer] Resources in [facility] include the following: The [place] [employer], [facility] . The [facility] The [facility]: http://cancersupportohio.org/prog pbci-tdy-cpnqwevz/virtual-communi ty/ National Resources: [place] [employer] (ACS), www.cancer.org 5-115-WXY-2345, [place]: 6-399-QUU-[place]. National Comprehensive Cancer [facility] (NCCN) 3-377-413-NCCN, www.nccn.org National Cancer Ponderosa (NCI) 7-470-9-CANCER, www.nci.gov The following attachments cannot be sent through Care Everywhere.Lovenox or Heparin: Subcutaneous Injections ([facility]) (Swazi)documented in this encounter [facility] 04-29-2022 Note PROCEDURE: XR HIP RT 2 3V WO PELVIS, XR TIB_FIB RT 2V, XR FEMUR RT HISTORY: Pain in right leg , chronic COMPARISON: None. FINDINGS: BONES:No fracture, acute abnormality, or significant arthropathy. SOFT TISSUES:No visible soft tissue swelling. EFFUSION:None visible. OTHER: Negative. IMPRESSION: 1. Normal appearance of the right hip, femur, and tibia-fibula. Electronically authenticated by: CAROLYN WALSH Date: 2022-04-29 16:59 [facility] 04-29-2022 Note PROCEDURE: XR HIP RT 2 3V WO PELVIS, XR TIB_FIB RT 2V, XR FEMUR RT HISTORY: Pain in right leg , chronic COMPARISON: None. FINDINGS: BONES:No fracture, acute abnormality, or significant arthropathy. SOFT TISSUES:No visible soft tissue swelling. EFFUSION:None visible. OTHER: Negative. IMPRESSION: 1. Normal appearance of the right hip, femur, and tibia-fibula. Electronically authenticated by: CAROLYN WALSH Date: 2022-04-29 16:59 [facility] 04-29-2022 Note PROCEDURE: XR HIP RT 2 3V WO PELVIS, XR TIB_FIB RT 2V, XR FEMUR RT HISTORY: Pain in right leg , chronic COMPARISON: None. FINDINGS: BONES:No fracture, acute abnormality, or significant arthropathy. SOFT TISSUES:No visible soft tissue swelling. EFFUSION:None visible. OTHER: Negative. IMPRESSION: 1. Normal appearance of the right hip, femur, and tibia-fibula. Electronically authenticated by: CAROLYN WALSH Date: 2022-04-29 16:59 [facility] 03-19-2022 History of Present illness Narrative Images from the original note were not included. Chief Complaint: Chief Complaint Patient presents with New Patient Clinical Care Team: Referring Provider: Rodney Olivas MD Primary Care Provider: Erin Sams History of Present Illness: Ms. Swift is a 26 y.o. female with a history of depression, anxiety, and borderline personality disorder. She underwent a laparoscopic appendectomy on 02/03/22 for acute appendicitis at [facility]. 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 She presents to [facility] for surgical evaluation. Cancer History: Zainab Swift initially presented Previous abdominal surgeries- Laparoscopic appendectomy Our team has reviewed all outside records available prior to patient visit. Ms. Swift is here today with her for her appointment. She complains of RLQ pressure, intermittent bloating, nausea, and constipation. She denies vomiting and diarrhea. She has family history of leukemia, breast cancer, and uterine cancer in several maternal aunts. She also has a distant cousin who passed from a neuroendocrine tumor. She is not on anticoagulation or steroids. Past Medical History: Diagnosis Date Anxiety Borderline personality disorder Depression GERD (gastroesophageal reflux disease) Past Surgical History: Procedure Laterality Date APPENDECTOMY LAPAROSCOPIC 02/03/2022 [place], [place] No Known Allergies Current Outpatient Medications Medication Sig Dispense Refill acetaminophen (TYLENOL) 500 MG tablet Take 500 mg by mouth every 6 hours as needed for Mild Pain. FLUoxetine (PROzac) 40 MG capsule Take 40 mg by mouth daily. Magnesium Hydroxide (MILK OF MAGNESIA PO) Take by mouth as needed. OLANZapine 5 MG tablet Take 5 mg by mouth At bedtime. omeprazole [address] capsule Take 20 mg by mouth as needed. No current facility-administered medications for this visit. Social History Socioeconomic History Marital status: Spouse name: Not on file Number of children: Not on file Years of education: Not on file Highest education level: Not on file Occupational History Not on file Tobacco Use Smoking status: Never Smoker Smokeless tobacco: Not on file Substance and Sexual Activity Alcohol use: Not Currently Comment: last alchohol 2020; mixed drink rarely Drug use: Not Currently Sexual activity: Not on file Other Topics Concern Not on file Social History Narrative Not on file Social Determinants of Health Financial Resource Strain: Not on file Food Insecurity: Not on file Transportation Needs: Not on file Physical Activity: Not on file Stress: Not on file Social Connections: Not on file Intimate Partner Violence: Not on file Housing Stability: Not on file Family History Problem Relation Age of Onset Cancer Maternal Aunt THYROID Leukemia Other Leukemia Other Breast Cancer Other Cancer Other Uterine Cancer Cousin Neuroendocrine cancer Review of Systems (Negative unless in BOLD): Consitutional: Denies fever, chills, significant change in weight, or fatigue. Cardiovascular: There is no history of heart disease, hypertension, angina, shortness of breath, ankle swelling, palpitations, or heart murmurs. Respiratory: Denies chronic cough, hemoptysis, asthma. Gastrointestinal: Denies anorexia, vomiting, diarrhea, melena, hematemesis, abdominal pain. Positive for nausea, constipation, bloating. Genitourinary: Denies urinary frequency, urgency, hematuria, or dysuria. Musculoskeletal: Denies back, or bone pain. Integumentary: Denies rashes, hives Neurological: There is no history of dizziness, falling, numbness or tingling of the hands or feet, or forgetfulness. Endocrine: There is no history of thyroid disease Hematologic/Lymphatic: Denies history of easy bruising or bleeding. No history of blood clots. Physical Exam: Vitals: BP 128/84 (BP Location: Left arm, BP Position: Sitting) Pulse 90 Temp 97.5 F (36.4 C) (Infrared) Resp 16 Ht 1.583 m (5' 2.32 ) Wt 76.7 kg (169 lb 3.2 oz) SpO2 98% BMI 30.63 kg/m Smoking Status Never Smoker General: The patient is a well developed, well nourished female who appears her stated age of 26 y.o. Neuro/Psych: Her speech patterns and movements are normal. Her affect is appropriate. She is oriented to person, place and time. Recent and remote memory is intact. HEENT: Normocephalic, atraumatic. EOMI. The sclera are anicteric. The mucous membranes are moist. Hearing is grossly intact. Lungs/Chest: Normal respiratory effort. No wheezes. Cardiac: Regular rate. Normotensive. Abd: Soft, NT/ND. No hepatosplenomegaly, ascites or hernia. Well healing laparoscopic incisions. Musculoskeletal:Normal range of motion in all four extremities. Warm and dry, 2+ peripheral pulses, no edema Integumentary: Skin is warm and dry. ECOG Performance Status: 0 0 - Asymptomatic (Fully active, able to carry on all predisease activities without restriction) 1 - Symptomatic but completely ambulatory (Restricted in physically strenuous activity but ambulatory and able to carry out work of a light or sedentary nature. For example, light housework, office work) 2 - Symptomatic, <50% in bed during the day (Ambulatory and capable of all self care but unable to carry out any work activities. Up and about more than 50% of waking hours) 3 - Symptomatic, >50% in bed, but not bedbound (Capable of only limited self-care, confined to bed or chair 50% or more of waking hours) 4 - Bedbound (Completely disabled. Cannot carry on any self-care. Totally confined to bed or chair) Laboratory evaluation: No results found for: SODIUM, POTASSIUM, CHLORIDE, CO2, BUN, CREATSERUM, GLUCOSE No results found for: WBC, WBCCOUNT, WBCFETAL, HGB, HCT, PLATELET, MCV No results found for: HGBA1C No results found for: ALT, TRANSFERASEA, AST, GGT, GAMMAGT, ALKPHOS, BILITOTAL, BILIDIRECT Tumor Markers: No results found for: CEA, CA199, AFPTMRMKR, CHROMOGRANA, CA125 Radiographic evaluation: 02/03/22 CTAP from OSH not currently available for review Procedures: n/a Pathology: Assessment Ms. Swift is a 26 y.o. female s/p laparoscopic appendectomy with a LAMN with clear margins and a 2.2 cm well-differentiated neuroendocrine tumor with lymphovascular and perineural invasion and positive resection margin. Plan Patient seen and evaluated by Dr. Baker, all available relevant imaging and labs reviewed. 1. CT chest and CT abdomen/pelvis to complete staging 2. Colonoscopy, which patient will plan to obtain locally 3. Pending review of above, will plan for a laparoscopic right hemicolectomy 4. Written consent obtained 5. Will also obtain a pre-op EKG and labs today All questions were answered to the best of our ability. She was instructed to call the office with any further questions. Leanne Joy MD Images from the original note were not included. I had the pleasure of seeing Zainab Swift in our surgical oncology clinic at [facility]. As you know, Ms. Swift is a pleasant 26 y.o. 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 The patient is presenting for an evaluation of further therapy. Ms. Swift denies any abdominal pain, nausea, vomiting, or jaundice. On examination, she is afebrile. Vital signs are stable. She has no scleral icterus. There is no jaundice. Lungs are clear and heart is regular rate and rhythm. Her abdomen reveals well healed incisions and her belly is soft, nontender, nondistended. There is no peripheral edema and gait is normal. The review of imaging of 02/03/22 CT AP revealed some thickening in the cecum and what appears to be adjacent appendix. There is no evidence of metastatic disease. In summary, the patient is a 26 year old female with a history of LAMN and NET on the laparoscopic appendectomy specimen from 02/03/22. We discussed extensively regarding the diagnosis and treatments moving forward. The LAMN was at the tip of the appendix and appeared to have disruption of the serosa with acellular mucin on the visceral peritoneum. For this pathology, if the repeat scan does not reveal any further mucin deposition, she can be monitored by imaging. However, if there is evidence of mucin deposition, we will need to consider further therapy including CRS+/-HIPEC. Regarding the NET, she does meet criteria per size for additional surgical therapy. She will be recommended right hemicolectomy to allow for full staging of her NET including the regional nodes. Prior to any further surgical recommendations, we will need repeat staging imaging including CT CAP. She will need colonoscopy prior to her operation to rule out any additional colonic pathology. If the CT is negative for any residual mucin, we will offer her right hemicolectomy. If the CT reveals additional mucin, she will be offered CRS+HIPEC including right hemicolectomy. I personally saw and evaluated the patient. I reviewed the MATT's note and agree with their findings and plan as documented in their note. Thank you for allowing me to participate in the care of your patient. I will keep you informed of her progress. Please do not hesitate to call if I can be of any assistance in the future. Sincerely, Suman Baker MD, PhD brazing machine operator Department of Surgery Division of Surgical Oncology [address] [place] [address] Office [phone] Fax [email or web address] documented in this encounter [facility] 03-19-2022 Instructions Rhoda Lazo RN - 03/19/2022 3:00 PM EDT Pre-operative Information As a patient at the [facility], you may work with various departments and have help from many professionals. One of these is a surgical oncologist who works in the Division of Surgical Oncology. Surgical oncologists are surgeons who have completed advanced training to care for cancer patients. All of the surgical oncologists at the [facility] have completed specialized training and are board-certified. The surgeon who will be performing your surgery is Suman Baker M.D., brazing machine operator. [address], [place] [address] Office phone: [phone] We are available to take calls Wednesday-Wednesday 8:00am-4:30pm. During non-business hours and holidays phone calls will be forwarded to a service covering our patients. Please communicate with our team through [facility] for non-urgent issues only. Office fax: [phone] Clinic Nurse Practitioner Carlos Gomes Mophead Trimmer And Wrapper Sandra Kennedy Security Public Safety Officer Iris Giraldo OUR TEAM OF EXPERTS Raissa Otero is associated with [facility] and is an academic medical center. Dr. Skip Le is an attending physician, the packing and final assembly supervisor of your care. Listed below are the members of his team: Surgical Oncology Fellow: a physician who completed residency and is obtaining further education. Resident(s): a physician who has finished spring internship and is receiving training in a specialized area (i.e. surgery) Esthetician Makeup Artist(s): a physician who has completed medical school and is in the 1st year of training Nurse Practitioner (NETWORK PROGRAMMER): A registered nurse with a master's or doctoral degree who is licensed to practice; Clinic: Carlos Gomes, [facility]: Nayeli EspinozaLottie, [facility], [facility], Kika Colón, [facility], Monica Jackson, [facility] Patient Care Flight Technician (PCRM): A registered nurse who coordinates care for patients returning home from the hospital and assists in coordinating home care; Clinic: Alissa Hunt RN, Hospital: Felicitas Campos RN, Yoselyn Lange RN, Antonio Jeffrey RN. MEDICAL RECORDS The Release of Information (ROSALBA) area is staffed from 8:00 a.m. to 7:00 p.m. and is available for walk in requests from 8:00 a.m. to 4:30 p.m. [facility] is responsible for answering requests for copies of medical records from various requestors such as insurance companies, hospitals and patients. Please note it can take up to 2 weeks to complete your request. [phone] DISABILITY FORMS This category includes any form (STD, LTD, FMLA, cancer insurance policy) requiring information to be completed by a physician or nurse practitioner. The forms should be given to the clinic nurse. There is no fee associated with this request but note it may take 1-2 weeks to complete. The forms cannot be completed during a clinic visit or within 24 hours of your request. It is important to place the patient s name, employee s name, patient s date, date disability begins and ends and any required signatures. Ask our team about the suggested recovery time. FREQUENTLY ASKED QUESTIONS How can I arrange for a private room? All rooms at [facility] are private. Do you have a social work supervisor available? A social work supervisor is assigned to our team. How can I help my family plan for my discharge? From the moment a patient is admitted, the [facility] begin to plan for the patient s discharge. Plan to leave at 11am on the day of discharge. Discharge instructions will be given to the patient. The hospital nurse will discuss these with you. Does the [facility] precertify my surgery? Yes. The precertification department at [facility] will notify your insurance carrier. Who should I contact if I anticipate difficulty paying my bill? We want to make sure all patients have access to the quality healthcare services of [facility], and we are committed to working with you and your family to obtain appropriate financial assistance. You may contact the Office of Financial Counseling [phone] weekdays between 8am and 5pm to help determine whether you might qualify for an assistance program. Do I need to bring clothes from home to wear at the hospital? The [facility] will provide you with personal items. You may wish to bring a robe or slippers. Does the [facility] have a designated area for smoking? The [facility] does not permit smoking inside or outside the hospitals including parking areas and sidewalks. If you would like to quit, you can contact a tobacco ultrasound specialist at [phone] or the [place] Tobacco QUIT LINE at [phone]. Where can I find information about visitation, parking, area hotels, etc.? In addition to this brochure, you will be given a packet of information that answers these questions and more. Please note live drew and plants are not permitted. What should I know upon discharge from the hospital? All essential information (restrictions, appointment times, contact information) will be given to you upon your discharge. After I m discharged from the hospital, how do I contact someone after business hours? The office number, [phone] or [phone], is connected to an answering service after 4:30pm each weekday and on weekends, available 08/02. What number should I call if I have billing questions? Please call [facility] Central Business Office at [phone]. Please Note: In regards to long term acute care registered nurse pain control. You may need narcotic pain medication after your operation or procedure. This is most often for a few days and occasionally for 2 to 4 weeks. It's our standard practice to stop providing narcotic pain medication once 60 days have passed after operation or other procedure. If you have a need or expectation of long-term narcotic use, we require this to be done by your primary physician or a pain specialist. When requesting medication refills, please try to provide as much notice as possible in order to ensure that you do not run out of medication. Preparing for Surgery A nurse will call you by 4 p.m. the day before your surgery to check the time, type of surgery and to answer any questions you may have. If you do not receive a call by 4 p.m., please call the [facility] at . Follow these instructions before coming to the hospital: Do not eat or drink anything (including water, coffee, candy, gum or mints) after midnight before your surgery. Only take the medicine your surgeon or anesthesiologist told you to take by mouth the morning of your surgery. You may brush your teeth, but do not swallow the water. It is important to have an empty stomach before your surgery. Do not smoke/use any sort of tobacco after 6 p.m. the night before your surgery. You may take a bath or shower the morning of your surgery. Wear casual, loose-fitting clothing to the hospital. Do not wear makeup, nail wallisian or hair pins to the hospital. Please remove any body piercing's. Please leave jewelry and other valuables at home. Bring a storage case for contact lenses or glasses. They cannot be worn during surgery. If you take medicines on a routine basis, please bring an updated list of medications with you. Limit the number of people bringing you to the hospital. Adult patients should be escorted by one adult. Arrive at the hospital two hours before your surgery, or as directed by your surgeon s office, to allow time to get you ready for surgery. If you have a living will or durable power of civil attorney, please bring a copy of the documents with you. IF YOU USE CPAP BRING YOUR MACHINE WITH YOU TO THE HOSPITAL ALONG WITH THE PRESCRIPTION FOR CPAP PRESSURE LEVELS If you develop any illness, such as a cold, sore throat, cough, or fever, before your surgery, call the [facility] at and our office at . Diet You may have a clear liquid diet the day before. You will be provided with a bowel prep kit to complete. Nothing to eat or drink (NPO) after midnight except for certain medications (See medication guidelines that were given to you during you pre-op visit) Pre-Operative Bowel Preparation A bowel prep is done to prepare the bowel for surgery or a procedure. Its purpose is to clear out the bowel of all solid matter. Please follow these instructions. Begin the bowel prep on the day before your scheduled surgery. You will need these items from a pharmacy: Dulcolax 20mg (available over the counter) Miralax 238g (available over the counter) Metronidazole or Erythromycin (if Metronidazole allergic) Neomycin Chlorhexidine (CHG) Foam Wash On the day before your surgery: Drink only clear liquids. You should not have any solid food or milk products until after your surgery. Do not drink any liquids that are red, orange or purple in color. You may drink as much of these liquids as you like. In fact, the more you drink, the better your prep and the better your body will tolerate the prep. Also, continue drinking clear fluids after you finish the prep (until midnight) will make it easier to place your IV on the morning of surgery. These clear liquids are allowed: Water Strained fruit juices with no pulp Popsicles Ice Soft drinks Gatorade (Lemon [place] preferred) Clear broth or bouillon Jello Coffee or tea with no milk or cream Doug-aid (no red, orange or purple) Begin the bowel prep. Plan ahead so you will have a bathroom nearby. You may need to get to the toilet right away. You will have several bowel movements through the day. They will become very watery. The bowels are clear or clean when there is only pale yellow fluid without flecks of stool. Please follow the steps as directed starting at 11AM on the day before your surgery. The steps will clean your bowel for surgery and help protect against infection. You may only consume CLEAR LIQUIDS twenty-four (24) hours prior to surgery. STEP 1 - 11AM: Take entire contents of bag LABELED STEP 1 by mouth- 4 X 5MG Bisacodyl (Ducolax) tablets STEP 2 - 11AM: Pour the entire bottle of Polyethylene Glycol (Miralax) powder (LABELED STEP 2) into a large 64-ounce bottle of sports drink like Gatorade or PowerAid that is not red, orange, or purple in color. Lemon-robinson is preferred. You may need to pour out a cup of the drink from the bottle into a glass to make room before pouring the powder into the bottle. Shake well. Drink entire contents (60 oz.) over 2 hours. STEP 3 - 1PM: Take entire contents of bag LABELED STEP 3 by mouth 2 x 500mg metronidazole (Flagyl) tablets and 2 x 500mg neomycin tablets STEP 4 - 2PM: Take entire contents of bag LABELED STEP 4 by mouth 2 x 500mg metronidazole (Flagyl) tablets and 2 x 500mg neomycin tablets STEP 5 - 9PM: Take entire contents of bag LABELED STEP 5 by mouth 2 x 500mg metronidazole (Flagyl) tablets and 2 x 500mg neomycin tablets STEP 6 - Before Bedtime: Take a shower and wash your hair and body as usual. Turn off shower. Apply 3 pumps of the Hibiclens (chlorhexidine) Foam wash (LABELED STEP 6) directly onto your skin. Lather your body from the neck down. Pay special attention to the area where the surgery will be. Leave the wash on for 5 minutes then rinse well in the shower. Do not discard the Hibiclens (chlorhexidine) Foam wash after showering. You will need to use the same bottle in the morning. Do NOT apply lotion or anything onto skin after showering. Put on clean clothes. STEP 7 - Before Bedtime: - Drink 1 bottle of Ensure Pre-Surgery Clear Nutritional drink. (LABELED STEP 7) STEP 8- Morning of Surgery: Repeat STEP 6 above. Apply 3 pumps of the Hibiclens (chlorhexidine) Foam wash (LABELED STEP 8) directly onto your skin. Lather your body from the neck down. Pay special attention to the area where the surgery will be. Leave the wash on for 5 minutes then rinse well in the shower. Do NOT apply lotion or anything onto skin after showering. Put on clean clothes. You will likely have extra Hibiclens (chlorhexidine) Foam wash leftover that you may continue to use when you return home after surgery. STEP 9 - Morning of Surgery: - Drink the second bottle of Ensure Pre-Surgery Clear Nutritional drink (LABELED STEP 9) on the way to the hospital prior to your procedure. STEP 10 - Please bring this form with you the day of your procedure. The morning of your surgery: Do not eat or drink anything other than the Preoperative Nutrition drink supplied by your doctor or doctor s office. If you are to take your morning medicines, take with small sips of water only. Bring all medicines you usually take (in the original containers) to the hospital with you. Follow any other instructions you were given to prepare for your surgery. If you have any questions, call your surgeon s office. Nothing to eat or drink (NPO) after midnight except for certain medications (See medication guidelines that were given to you during you pre-op visit) and the Ensure Pre-Surgery clear nutrition drink (see information below for directions on this drink before surgery). * You will be given 2 bottles of Ensure Pre-Surgery clear nutrition drink today to take prior to surgery. What is Ensure Pre-Surgery clear nutrition drink, and what does it do? Surgery creates unique nutrition needs for your body. Ensure Pre-Surgery is formulated for those needs with carbohydrates and antioxidants to help your body recover after surgery. What is the drink important? Your healthcare provider has recommended this specialized Ensure nutrition drink to help your body prepare for, and recover from, surgery. It's important that you follow your doctor's nutrition recommendations to help with recovery. Pre-Surgery Carbohydrate-Loading Drinks have been shown to help patient recovery: Reduced nausea and vomiting after surgery Reduced pain after surgery Reduced time in the hospital When should I drink Ensure Pre-Surgery? We recommend you drink 1 bottle the night before surgery and drink 1 bottle the morning of your surgery up to 2 hours before surgery. This should be consumed quickly (in less than 5 minutes, rather than sipped over time). You should not have anything to eat or drink after midnight before surgery except your doctor's approved medications with a sip of water and this Ensure Pre-Surgery clear nutrition drink that should be consumed in the morning of surgery and finish it no later than 2 hours prior to surgery time. You should have nothing to eat or drink at all 2 hours prior to your surgery. What is Ensure Enlive? As you continue to recover from surgery, add Ensure Enlive to your diet. Ensure Enlive is the only advanced nutrition shake that has an All-in-One blend with 20 grams of protein, HMB, fiber, vitamins and minerals. Ensure Enlive helps rebuild muscle for strength and energy during recovery from surgery. Ensure Enlive has been clinically shown to help significantly improve health outcomes. Patient who drank Ensure Enlive twice daily saw improvements in nutritional status, weight gain, and vitamin D levels. If you are diabetic, then we recommend Glucerna Shake Hunger Smart (10 fluid oz.) instead of Ensure Enlive We are providing you with 2 bottles of Ensure Enlive (or Glucerna if you are diabetic) as a sample for you to use. This is available at all major retailers. Our recommendation is to use a nutritional supplement for 14 days before and 14 days after surgery as part of a healthy diet. This time frame before surgery is a general guideline. Please note: This is a general guideline. The time frame before surgery may be shorter if your surgery is scheduled sooner than 14 days. Please be aware that the Ensure Enlive is different than the Ensure Pre-Surgery Clear Nutrition Drink. Ensure Enlive should not be drank prior to surgery. This should be consumed when recovering from your surgery. Exercise and Improve Your Strength Before Surgery Being in good physical shape can help you recover from surgery more quickly and with fewer problems. The stronger you are before surgery, the easier things will be for you after surgery. Exercise 30 minutes each day most days of the week. Walking in your neighborhood or on a treadmill, riding a bike, and strength training using light weights are all good options. Try to increase the amount of time or how hard you are exercising every few days to build up your strength and stamina. If you have a regular exercise routine most days of the week, stay with it until your surgery. Your surgeon may have you see a physical therapist (PT) before your surgery if you are not very active or you are weak. Stop Tobacco Use If you smoke or use other tobacco products you need to stop 4 weeks before the surgery. You also need to avoid tobacco use for up to 8 weeks after surgery to help your wound healing. Talk to your doctor about a smoking cessation program. You can also get help through: [facility], National Quit Line, [place] [employer] Association, [place] Cancer Society, Smokefree.gov website Stop Alcohol Use If you drink alcohol you will need to stop drinking 4 weeks before the surgery to reduce your risk of problems after surgery. Avoid alcohol up to 8 weeks after your surgery to help reduce your risk of infection and to help your wound heal more quickly. Talk to your doctor if you need help to stop alcohol use. You may also find these resources helpful:Alcoholics Anonymous (AA) http://www.aa.org/ Rethinking Drinking https://www.rethinkingdrinking.[facility].nih.gov/ National [place] of Alcohol Abuse and Alcoholism https://niaaa.nih.gov/ Sasha Head 496-758-8768 -Inpatient, partial hospitalization and outpatient services for teens or adults and their families, as well as educational programs are offered. PREOPERATIVE PAIN MANAGEMENT Most people can have some pain after surgery. Good pain control helps you feel comfortable so you can take deep breaths, walk and sleep better. This can help lower the risk of complications such as pneumonia or blood clots after surgery. Pain control starts before surgery Your doctor may prescribe medicine to help control your pain. Medications that you may be given before surgery include: Acetaminophen (Tylenol) Oxycodone Gabapentin Other types of medications that you may be given include anti-anxiety and anti-nausea medicines. Taking your pain medicine as ordered by your doctor will bring you the most relief as your body heals. Pain Relief Procedures In addition to medications, your surgeon and/or anesthesiologist may recommend a pain relieving procedure that will be done before you go into the operating room. Spinal Spinal analgesia is a procedure that can provide substantial pain relief after surgery. After cleaning and numbing the skin, a needle is advanced to the intrathecal space (it does not go into your spinal cord). After the needle is in the correct place, pain relieving medication is injected and then the needle is removed. Rare side effects from intrathecal injection may include: headaches, numbness or tingling in the lower legs, back soreness, bleeding, allergic reaction or infection. Epidural Epidural analgesia is another way to give pain medicine after surgery. A very thin plastic tube called an epidural catheter is placed in your back just before surgery. A small pump that delivers numbing medication is attached to the epidural catheter. The catheter is taped to your back and you will be able to move around in bed or walk. The epidural can stay in until 24-48 hours before discharge from the hospital. Rare side effects from an epidural may include: headaches, bleeding, allergic reaction or infection. Alternative Pain Relief Options If the previously mentioned pain relief procedures are not best for you, do not worry, there are alternative options to provide pain relief after surgery. Patient Controlled Analgesia (also known as a GREY STOCK RECORDER) A GREY STOCK RECORDER is a pain pump that could be used to help control pain. The pain medicine is ordered by your doctor. The pump is connected to your IV line and you can push a button when you have pain. This will give a small amount of pain medicine into your blood stream. You should be the only person to push the button. Your nurse will give you further instructions about this pump. Pain control without medication Many patients find that using non-drug therapy for pain control brings them additional relief. Options include, but are not limited to: Relaxation Exercise or movement Distraction, such as reading, watching a movie or sid Aromatherapy Heat or cold therapy (limit time of use) Talk to a staff member to learn more. Please follow OPAC instructions on preoperative medications Getting Your Skin Ready for Surgery You are scheduled to have a surgery that involves cutting through the skin. Because germs live on everyone's skin, there is a greater chance of getting an infection. To lessen your chance of getting an infection, you need to take special care of your skin before the surgery. Follow These Instructions: You may be given or you will need to buy a special soap called 4% chlorhexidine gluconate or CHG. Common brand names for this soap are Hex-A-Clens or Hibiclens. You will need a 4-ounce bottle or larger. There may be a store brand that is less costly. Ask your pharmacist where to find it in the drug store. It is often with first aid supplies. You may want to call ahead to check that they have the CHG soap in the store. Do not shave near the site where your doctor will be making the cut for your surgery for at least 48 hours before surgery. You need to shower with the CHG soap two times before your surgery: _ The evening before your surgery. _ Again the morning of your surgery. Cleaning Your Skin with CHG * 1. Start by washing your hair as usual with your normal shampoo and wash your body with regular soap. Rinse your hair and body very well to remove any shampoo or soap that might be on your skin. Page 2 2. Wet a clean washcloth and turn off the shower. 3. Put the CHG soap on the wet clean washcloth. 4. Apply the CHG soap to your whole body from the neck down only. Do not use CHG soap on your face and be careful not to get the CHG in your eyes or ears. CHG soap does not lather well. Put more CHG on the cloth as you cover more of your body. You should use about 2 ounces or cup of CHG with each shower. 5. Wash your body gently for 5 minutes, paying special attention to the part on your body where the surgery will be done. Be sure to wash the back of your neck, under your arms, your belly button, private parts and your legs down to your toes. Do not scrub too hard. 6. Turn the shower back on and rinse well to get the CHG soap off your body. 7. Pat yourself dry with a clean, dry towel. 8. Do not use any lotions, moisturizer, make-up or other products on the skin near the part of your body that will be cut for surgery. 9. Put on clean clothes. Be sure to repeat the shower the morning of your surgery. *Special Notes If you are to have a cut made into your scalp, you need to wash your hair with CHG each time your shower with CHG. Wash your hair with regular shampoo and rinse it well with water. Put a large amount of the CHG into your palm and then work it through your hair and scalp. It will not lather like your shampoo. Be careful not to get CHG into your eyes or ears. Rinse with clean water. If you do not have a shower or you are not able to get into the shower, do a sponge bath each time. Do not wash your hair unless you are to have a cut into your scalp. First, bathe with a washcloth and regular soap. Rinse with clean water. Then get a clean washcloth and use the CHG to wash your body. Rinse with another clean washcloth and plain water. Dry with a clean towel. If you have any questions about cleaning your skin, call your doctor s office. Current Outpatient Medications Medication Sig acetaminophen (TYLENOL) 500 MG tablet Safe to take AM of Surgery FLUoxetine (PROzac) 40 MG capsule Safe to take AM of Surgery Magnesium Hydroxide (MILK OF MAGNESIA PO) HOLD AM of Surgery OLANZapine 5 MG tablet Safe to take night before surgery omeprazole [address] capsule Safe to take AM of surgery documented in this encounter [facility] 02-19-2022 Miscellaneous Notes Addended by: KARINE GALVAN on: 02/19/2022 04:15 PM Modules accepted: Orders INTESTINAL REFERRAL Let the person providing referral info know that you must speak directly to the patient. Our team cannot proceed with intake without communicating directly with the patient. 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 Will request records/images and financial clearance. Discuss intake process and explain and document referral time frames INTAKE PROCESS (6-8 weeks): 1) Get the records 2) Get FC 3) Review records to summarize the history 4) Discuss case with the surgeon to get a plan for the visit Specifically ask about dysmotility - gastroparesis, chronic constipation If abdominal adhesions and/or abdominal pain, inform the patient that our surgeons do not perform minimally invasive surgery. Our major abdominal surgery will involve a large incision from the chest to the pelvis for full abdominal exploration. If the patient is interested in minimally invasive surgery (laparoscopic surgery), then they will need to request this from general surgery. 3) Are you on TPN? No 4) What is the name and number of the referring MD or one most involved in your care?- Dr. Rodney Olivas (Request most recent consult note and most recent H&P from referring MD) 5) Is there a specific surgeon you are looking to see within our program?- Dr. Davies- referring MD request (We have 4 surgeons all working together within our program to cover inpatient, outpatient and surgical services. We will make every effort for you to see any surgeon you request at your initial visit and directly involve this surgeon in development of your treatment plan.) 6) Do you have the resources available to cover travel expenses to [facility]? Yes We are currently flexible in offering initial virtual consultations for both surgery and transplant ONLY to patients living in [place], [place], and [place] through May 18, 2022. This may expand to other states depending on where the surgeon who conducts your initial visit is licensed (Dr. Wyatt is licensed in [place], [place], and [place]). If you are living in another state and desire an initial virtual consultation, you may choose to purchase a [employer]. (Surgical or transplant evaluations are highly individualized and may be conducted either through your local providers or at the [facility]. The plan for your evaluation will be discussed with you after receiving all your records and reviewing your case with the surgeon.) 7) Who will be your support person/caregiver that will come to the evaluation and stay here with you during your post-operative recovery? Name and relationship: Your caregiver will only be needed for the initial visit with the surgeon (either virtual or in-person), for any pre-surgical testing done at the [facility], and for any post-surgical stay in [place] depending on your post-surgical course. 8) Would you be interested in participating in [facility] Care Online Virtual Visits for the psychosocial screening? - Yes If the patient says no, proceed as normal. If yes, please e-mail the patient and copy the social work supervisor on it. She will need them to sign a consent & send them instructions to set up. 9) I will need records from all the hospitals you have been treated at. These records include abdominal operations, testing, consults and admissions. We won't be able to set up a visit here until we get all your records. -Where you have been over the past 1 year? [facility] (Submit ALL template in [facility], AND for transplant patients submit MOST RECENT template) -Where else have you been for surgeries or testing and what years? Where/when was your very first abdominal surgery? Same as above 1st abdominal surgery- 01/2022 (Submit ALL template in [facility]) 10) How many drinks of alcohol do you have per day?- None per patient 11) Are you using any tobacco-containing products including cigarettes, cigars, vapor, shisha/hookah, snuff, chew, or nicotine patches?- None per patient (If yes, you are requested to undergo a cessation program and stop. You will be tested for nicotine periodically until you remain nicotine-free for at least 1 to 3 months prior to surgery. We perform major abdominal surgery and nicotine usage places you at extremely high risk for post-operative complications including poor wound healing and delayed weaning from mechanical ventilation.) 12) What prescribed pain medications are you taking including ketamine and suboxone? Are you taking any medications in IV form for pain or not including IV Benedryl?- None per patient (IV medication will not be prescribed by our program outside of the hospital setting. You must plan to bring enough medication with you or have it shipped to you from your local provider if you decide to travel while on it.) 13) Are you using any forms of marijuana, heroin, cocaine, methadone or any other unprescribed narcotics?- None per patient (If yes, you will be requested to undergo a rehab program and stop. You will be tested for these substances before a visit with our surgeon and your surgical evaluation will be held until you are able to complete a rehab program and test drug-free. We perform major abdominal surgery and illicit drug and narcotic usage places you at extremely high risk for operative complications including severe heart, lung, and surgical site infections, puncture of the lung during mechanical ventilation, and poor post-op pain control.) 14) Have you been diagnosed with a mental health disorder such as anxiety, depression, bipolar disorder? Have you seen a psychiatrist and/or psychologist for treatment including medications and counseling? When/where?- Anxiety, borderline personality disorder and Depression- On medication - Psychiatrist (Submit request in [facility]) 15) Do you have a Power of Project Engineer (POA)? Do you have a Living Will?- No If so, please bring a copy of this to your appointment. 16) For females: When and where was your last mammogram (40 and up) and pap smear (16 and up)? - Needs to be within last year.- PAP- Never had & Mammo- No (Submit request in [facility]) 17) For all patients: When and where was your last dental visit? - Needs to be within last 6 months.- about 6 months ago (Submit request in [facility]) 18) If transplant- Ask patient to obtain their immunization records and have them sent to us via mail/fax.- COVID- Yes The patient has been entered into Edit, chart is created, and request to [facility] for medical records has been generated. Financial clearance has been submitted for rehab/transplant (if on TPN or has dysmotility, submit for both rehab & transplant). Chart will be given to client service coordinator. Referral received from Dr. Rodney Olivas from [facility] ([phone]) to Dr. Davies. 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 Will call patient to start intake. documented in this encounter [facility] 12-22-2021 Evaluation note Encounter Date Diagnosis Assessment Notes Dec, Urinary frequency (ICD-10 - R35.0) Dec, Acute cystitis without hematuria (ICD-10 - N30.00) Take medication as directed. Urine analysis shows abnormalities today in office. Urine culture will be sent to lab. Will call with results if resistance present to antibiotic. Increase fluid intake. Follow hygiene guidelines such as wiping front to back, avoid using perfumed lotions, bath beads, bubble bath. Prevention tips inlcude urinating after sexual intercourse. Follow up with primary care provider or manager gyn if no improvement of symptoms. 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 [facility] Diagnosis Primary malignant neuroendocrine tumor of appendix Post-operative pain Other acute postoperative pain Primary malignant neuroendocrine tumor of appendix [facility] Diagnosis Primary malignant neuroendocrine tumor of appendix- Primary [facility] Diagnosis Primary malignant neuroendocrine tumor of appendix- Primary [facility] Diagnosis Primary malignant neuroendocrine tumor of appendix [facility] Diagnosis Primary malignant neuroendocrine tumor of appendix [facility] Diagnosis Carcinoid syndrome- Primary SOB (shortness of breath) Shortness of breath Tachycardia Tachycardia, unspecified Antinuclear antibody (HUNTER) titer greater than 1:80 Primary malignant neuroendocrine tumor of appendix [facility] Diagnosis Primary malignant neuroendocrine tumor of appendix [facility] Diagnosis Carcinoid syndrome SOB (shortness of breath) Shortness of breath Tachycardia Tachycardia, unspecified Primary malignant neuroendocrine tumor of appendix [facility] Diagnosis Fibromyalgia muscle pain- Primary Mylagia and myositis, unspecified [facility] Primary malignant neuroendocrine tumor of appendix- Primary [facility] Diagnosis Primary malignant neuroendocrine tumor of appendix [facility] Diagnosis 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 Neoplasm of unspecified nature of digestive system [facility]ative - Reported* Type Description Date Medical History chronic depression SEAT 4a Other Reason for referral (narrative)* (Routine) Specialty Diagnoses / Procedures Referred By Contac t Referred To Contact [place] [address] [place] [address] Referral ID Status Reason Start Date Expiration Date Visits Re quested Visits Authorized * (Routine) - New Request Specialty Diagnoses / Procedures Referred By Contac t Referred To Contact Procedures PLATELET MONITORING PER PROTOCOL Suman Baker MD, PhD [address] [place] [address] Referral ID Status Reason Start Date Expiration Date V isits Requested Visits Authorized [id number] New Request 05/22/2022 06/16/2023 1 1 * (Routine) - New Request Specialty Diagnoses / Procedures Referred By Contac t Referred To Contact Procedures DVT/VTE RISK ASSESSMENT Suman Baker MD, PhD [address] [place] [address] Referral ID Status Reason Start Date Expiration Date V isits Requested Visits Authorized [id number] New Request 05/22/2022 06/16/2023 1 1 * (Routine) - New Request Specialty Diagnoses / Procedures Referred By Contac t Referred To Contact Procedures NO MECHANICAL DVT PROPHYLAXIS Liza Cisneros PA-C [address] [place] [address] Referral ID Status Reason Start Date Expiration Date V isits Requested Visits Authorized [id number] New Request 05/22/2022 06/16/2023 1 1 [facility] Consultation (Routine) - New Request Specialty Diagnoses / Procedures Referred By Katharine morales Referred To Contact Oncology Diagnoses Primary malignant neuroendocrine tumor of appendix Carlos Gomes APRN-CNP [address] [place] [address] Andreas Ortega MD, MPH [address] [address] Referral ID Status Reason Start Date Expiration Date V isits Requested Visits Authorized [id number] New Request 06/09/2022 07/04/2023 1 1 * MRI/CAT Scan (Routine) - New Request Specialty Diagnoses / Procedures Referred By Katharine morales Referred To Contact Diagnoses Primary malignant neuroendocrine tumor of appendix Procedures CT ABDOMEN/PELVIS WITH CONTRAST CHG CT SCAN,ABDOMENT AND PELVIS,W CONTRAST Carlos Gomes APRN-CNP [address] [place] [address] Referral ID Status Reason Start Date Expiration Date V isits Requested Visits Authorized [id number] New Request 06/09/2022 07/04/2023 1 1 [facility] for referral (narrative)* Consultation (Routine) - New Request Specialty Diagnoses / Procedures Referred By Katharine morales Referred To Contact Genetics Diagnoses Primary malignant neuroendocrine tumor of appendix Yudelka Moralez APRN-CNP [address] [place] [address] Erin Stoner [facility] [address] [address] Referral ID Status Reason Start Date Expiration Date V isits Requested Visits Authorized [id number] New Request 07/08/2022 08/02/2023 1 1 * MRI/CAT Scan (Routine) - New Request Specialty Diagnoses / Procedures Referred By Contac t Referred To Contact Diagnoses Primary malignant neuroendocrine tumor of appendix Procedures CT ABDOMEN/PELVIS WITH AND WITHOUT CONTRAST CHG CT SCAN,ABDOMENT AND PELVIS,Andreas Ellis MD, MPH [address] [facility] [address] [place] [address] Referral ID Status Reason Start Date Expiration Date V isits Requested Visits Authorized [id number] New Request 07/08/2022 08/02/2023 1 1 * Radiology (Routine) - New Request Specialty Diagnoses / Procedures Referred By Contac t Referred To Contact Diagnoses Primary malignant neuroendocrine tumor of appendix Procedures NUC PET NEUROENDOCRINE CHG NUC THERAPY HYPERTHYROID SUBSEQUENT Yudelka Moralez, BACKER UP-IT OPERATIONS MANAGER [address] [place] [address] Referral ID Status Reason Start Date Expiration Date V isits Requested Visits Authorized [id number] New Request 07/08/2022 08/02/2023 1 1 [facility] Auth/Cert Specialty Diagnoses / Procedures Referred By Katharine t Referred To Contact Diagnoses 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] Procedures NY CHG HYPERTHERMIA RX INTRACAV PROBE NY PART REMOVAL COLON W ANASTOMOSIS NY RESECT RECURRENT FISH ROD MAKER MALIG 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) COLECTOMY PARTIAL OPEN DEBULKING INTRA-ABDOMINAL/PELVIC/RETROPE RITONEAL W/ OMENECTOMY & PELVIC PARA-AORTIC LYMPHADENECTOMY Suman Baker MD, PhD [address] [place] [address] [facility] [address] [place] [address] Referral ID Status Reason Start Date Expiration Date Visits Re quested Visits Authorized [id number] 1 1 [facility] Summary Purpose Family History No Family History Records FoundNo Family History Records FoundNo Family History Records FoundNo Family History Records FoundNo Family History Records Found Advance Directives No Advanced Directives Records FoundNo Advanced Directives Records FoundNo Advanced Directives Records FoundNo Advanced Directives Records FoundNo Advanced Directives Records Found Reason for Referral Specialty Diagnoses / Procedures Referred By Contac t Referred To Contact Echocardiography Diagnoses Carcinoid syndrome SOB (shortness of breath) Tachycardia Procedures ECHOCARDIOGRAM [place] ECHO HEART XTHORACIC,COMPLETE W DOPPLER Yudelka Moralez APRN-IT OPERATIONS MANAGER [address] [place], [place] [facility] [place] [address] [place] [address] Referral ID Status Reason Start Date Expiration Date V isits Requested Visits Authorized [id number] Auth Not Needed 10/07/2022 11/01/2023 1 1 Specialty Diagnoses / Procedures Referred By Contac t Referred To Contact Diagnoses Primary malignant neuroendocrine tumor of appendix Procedures CT NECK WITH CONTRAST [place] CT NECK TISSUE CONTRAST Yudelka Moralez APRN-IT OPERATIONS MANAGER [address] [place], [place] Referral ID Status Reason Start Date Expiration Date V isits Requested Visits Authorized [id number] New Request 10/07/2022 11/01/2023 1 1 Specialty Diagnoses / Procedures Referred By Contac t Referred To Contact Diagnoses Carcinoid syndrome SOB (shortness of breath) Tachycardia Primary malignant neuroendocrine tumor of appendix Procedures CT CHEST WITH CONTRAST CHG DIAGNOSTIC COMPUTED TOMOGRAPHY THORAX W/CONTRAST Yudelka Moralez APRN-IT OPERATIONS MANAGER [address] [place], [place] Referral ID Status Reason Start Date Expiration Date V isits Requested Visits Authorized [id number] New Request 10/07/2022 11/01/2023 1 1 Specialty Diagnoses / Procedures [facility] Ref[facility] To Contact Oncology Diagnoses Carcinoid syndrome SOB (shortness of breath) Tachycardia Yudelka Moralez APRN-IT OPERATIONS MANAGER [address] [place], [place] Referral ID Status Reason Start Date Expiration Date V isits Requested Visits Authorized [id number] New Request 10/07/2022 11/01/2023 1 1 Specialty Diagnoses / Procedures Referred By Contac t Referred To Contact Rheumatology Diagnoses Antinuclear antibody (HUNTER) titer greater than 1:80 Yudelka Moralez APRN-IT OPERATIONS MANAGER [address] [place] [phone] Referral ID Status Reason Start Date Expiration Date V isits Requested Visits Authorized [id number] New Request 10/07/2022 11/01/2023 1 1 Specialty Diagnoses / Procedures Referred By Contac t Referred To Contact Diagnoses Primary malignant neuroendocrine tumor of appendix Procedures CT ABDOMEN/PELVIS WITH CONTRAST CHG CT SCAN,ABDOMENT AND PELVIS,W CONTRAST Carlos Gomes BACKER UP-IT OPERATIONS MANAGER [address] [facility] [address] [place] [address] Referral ID Status Reason Start Date Expiration Date Visits Re quested Visits Authorized [id number] Closed 03/19/2022 04/13/2023 1 1 Specialty Diagnoses / Procedures Referred By Contac t Referred To Contact TRANSPLANT Diagnoses Cancer of appendix (HCC) Procedures CONSULT TO TRANSPLANT CENTER EXPLORATORY LAPAROTOMY CELIOTOMY W/WO BIOPSY SPX Vernon Davies MD [address] [place] [address] [facility] [address] [place] [address] Referral ID Status Reason Start Date Expiration Date Visits Requested Visits Authorized [id number] Pending Review Financial Clearance Required - [employer] Payor 02/19/2022 02/19/2023 99 [phone] Additional Source Comments INFORMATION SOURCE (unrecogn ized section and content) DATE CREATED AUTHOR 02/19/2021 Rohit Winston [facility] DATE CREATED AUTHOR AUTHOR'S ORGANIZ ATION 01/03/2022 [facility] DATE CREATED AUTHOR AUTHOR'S ORGANIZ ATION 12/25/2022 [facility] DATE CREATED AUTHOR AUTHOR'S ORGANIZ ATION 04/24/2023 [facility] DATE CREATED AUTHOR AUTHOR'S ORGANIZ ATION 08/10/2023 [facility] dical Specialists EPIC REASON FOR VISIT (unrecogniz ed section and content) Reason Comments Referral Request Specialty Diagnoses / Procedures Referred By Contac t Referred To Contact Diagnoses Primary malignant neuroendocrine tumor of appendix Procedures CT ABDOMEN/PELVIS WITH CONTRAST CHG CT SCAN,ABDOMENT AND PELVIS,W CONTRAST Carlos Gomes BACKER UP-[facility] [address] [place] [address] Referral ID Status Reason Start Date Expiration Date Visits Re quested Visits Authorized [id number] Closed 03/19/2022 04/13/2023 1 1 Reason Comments New Patient Specialty Diagnoses / Procedures Referred By Contac t Referred To Contact Surgical Oncology Diagnoses New patient - Appendix NET - External: Dr. Timmy Hall - Preferred: Oanh Procedures NEW ISRRAEL SURGERY Self, Self Suman Baker MD, PhD [address] [place] [address] Referral ID Status Reason Start Date Expiration Date Visits Re quested Visits Authorized [id number] Closed 03/19/2022 04/13/2023 1 1 Reason Comments Follow-up Reason Comments New Patient New diagnosis of sta ge 4 neuroendocrine tumor of the appendix with 1 peritoneal implant referred by Dr. Murdock recent surgery 05/22/22--recovering well but slowly Lab Review Labs completed today prior to appt Other C-diff infection jus t finished course of vancomycin Specialty Diagnoses / Procedures Referred By Contac t Referred To Contact Oncology Diagnoses Primary malignant neuroendocrine tumor of appendix Carlos Gomes BACKER UP-[facility] [address] [place] [address] Andreas Ortega MD, MPH [address] [facility] [address] [place] [address] Referral ID Status Reason Start Date Expiration Date V isits Requested Visits Authorized [id number] New Request 06/09/2022 07/04/2023 1 1 Specialty Diagnoses / Procedures Referred By Contac t Referred To Contact Diagnoses Primary malignant neuroendocrine tumor of appendix Procedures NUC PET NEUROENDOCRINE CHG NUC THERAPY HYPERTHYROID SUBSEQUENT Yudelka Moralez BACKER UP-IT OPERATIONS MANAGER [address] [place] [address] Referral ID Status Reason Start Date Expiration Date Visits Re quested Visits Authorized [id number] Closed 07/08/2022 08/02/2023 1 1 Specialty Diagnoses / Procedures Referred By Katharine t Referred To Contact Diagnoses Primary malignant neuroendocrine tumor of appendix Procedures CT ABDOMEN/PELVIS WITH AND WITHOUT CONTRAST CHG CT SCAN,ABDOMENT AND PELVIS,Andreas Ellis MD, MPH [address] [facility] [address] [place] [address] Referral ID Status Reason Start Date Expiration Date Visits Re quested Visits Authorized [id number] Closed 07/08/2022 08/02/2023 1 1 Reason Comments Follow-up Primary malignant ne uroendocrine tumor of appendix Other 09/09 first Octreotid e injection, since has flu like symptoms. No fever, achy muscle/bone, swollen lymph nodes. No congestion or cough. Went to PCP for mono, COVID, and FLU all negative. Asking if related to injection. Injection did improve diarrhea significantly a week after injectionHasn't started Creon Abdominal Pain Mid Abd pain followi ng each injection lasting 8 hr. Stool changes, romana color and mucus first few days following each injection Nausea Ongoing nausea inter mittent, no vomiting Chest Pain Chest pain, SOB, inc reased HR 120-140. Multiple episodes per day lasting few hours. Dizziness. Specialty Diagnoses / Procedures Referred By Katharine morales Referred To Contact Diagnoses Primary malignant neuroendocrine tumor of appendix Procedures CT NECK WITH CONTRAST [place] CT NECK TISSUE CONTRAST Yudelka Moralez APRN-TASH [address] [place] [phone] Referral ID Status Reason Start Date Expiration Date Visits Re quested Visits Authorized [id number] Closed 10/07/2022 11/01/2023 1 1 Specialty Diagnoses / Procedures Referred By Katharine t Referred To Contact Echocardiography Diagnoses Carcinoid syndrome SOB (shortness of breath) Tachycardia Procedures ECHOCARDIOGRAM [place] ECHO HEART XTHORACIC,COMPLETE W DOPPLER Yudelka Moralez, BACKER UP-IT OPERATIONS MANAGER [address] [place] [address] Echocardiography [place] [address] [facility] [address] [place] [address] Referral ID Status Reason Start Date Expiration Date Visits Re quested Visits Authorized [id number] Closed 10/07/2022 11/01/2023 1 1 Specialty Diagnoses / Procedures Referred By Katharine morales Referred To Contact Diagnoses Carcinoid syndrome SOB (shortness of breath) Tachycardia Primary malignant neuroendocrine tumor of appendix Procedures CT CHEST WITH CONTRAST CHG DIAGNOSTIC COMPUTED TOMOGRAPHY THORAX W/CONTRAST Yudelka Moralez APRN-IT OPERATIONS MANAGER [address] [place] [address] Referral ID Status Reason Start Date Expiration Date Visits Re quested Visits Authorized [id number] Closed 10/07/2022 11/01/2023 1 1 Reason Comments New Patient Referred by Dorothy Moralez NP for JR. 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 Joint achy/flu symptoms, tachcardia, + HUNTER. 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 Procedures MRI ABDOMEN/PELVIS WITHOUT CONTRAST NY MRI, ABDOMEN (MRI) NY MRI, PELVIS, W/O CONTRAST Yudelka Moralez, BACKER UP-IT OPERATIONS MANAGER [address] [place] [phone] Referral ID Status Reason Start Date Expiration Date Visits Re quested Visits Authorized [id number] Closed 03/09/2023 04/02/2024 1 1 Source Comments (unrecognize d section and content) In the event this informatio n is protected by the Federal Confidentiality of Alcohol and Drug Abuse Patient Records regulations: The Federal rules restrict any use of the information to criminally investigate or prosecute any alcohol or drug abuse patient.[facility] Care Teams (unrecognized sec tion and content) Field Automobile Adjuster Relationship Specialty Start Date End Date Erin Sams RN PCP - General 03/19/22 Rodney Olivas MD [address] [place] [address] Hematology 03/19/22 Field Automobile Adjuster Relationship Specialty Start Date End Date Erin Sams RN PCP - General 03/19/22 Rodney Olivas MD [address] [place] [address] Hematology 03/19/22 Field Automobile Adjuster Relationship Specialty Start Date End Date Erin Sams RN PCP - General 03/19/22 Rodney Olivas MD [address] [place] [address] Hematology 03/19/22 Field Automobile Adjuster Relationship Specialty Start Date End Date Erin Sams RN PCP - General 03/19/22 Rodney Olivas MD [address] [place] [address] Hematology 03/19/22 Field Automobile Adjuster Relationship Specialty Start Date End Date Erin Sams RN PCP - General 03/19/22 Rodney Olivas MD [address] [place] [phone] Hematology 03/19/22 Suman Baker MD, PhD [address] [place] [address] Surgeon Surgical Oncology 07/08/22 Field Automobile Adjuster Relationship Specialty Start Date End Date Erin Sams RN PCP - General 03/19/22 Rodney Olivas MD [address] [place] [address] Hematology 03/19/22 Suman Baker MD, PhD [address] [place] [address] Surgeon Surgical Oncology 07/08/22 Field Automobile Adjuster Relationship Specialty Start Date End Date Erin Sams RN PCP - General 03/19/22 Rodney Olivas MD [address] [place] [id number] Hematology 03/19/22 Suman Baker MD, PhD [address] [place] [address] Surgeon Surgical Oncology 07/08/22 Field Automobile Adjuster Relationship Specialty Start Date End Date Erin Sams RN PCP - General 03/19/22 Rodney Olivas MD [address] [place] [id number] Hematology 03/19/22 Suman Baker MD, PhD [address] [place] [address] Surgeon Surgical Oncology 07/08/22 Cheikh Coelho MD [address] [place] [address] Infectious Diseases Physician Cardiovascular Disease 10/07/22 Field Automobile Adjuster Relationship Specialty Start Date End Date Erin Sams RN PCP - General 03/19/22 Rodney Olivas MD [address] [place] [address] Hematology 03/19/22 Suman Baker MD, PhD [address] [place] [address] Surgeon Surgical Oncology 07/08/22 Cheikh Coelho MD [address] [place] [address] Infectious Diseases Physician Cardiovascular Disease 10/07/22 Field Automobile Adjuster Relationship Specialty Start Date End Date Erin Sams RN PCP - General 03/19/22 Rodney Olivas MD [address] [place] [address] Hematology 03/19/22 Suman Baker MD, PhD [address] [place] [address] Surgeon Surgical Oncology 07/08/22 Cheikh Coelho MD [address] [place] [phone] Infectious Diseases Physician Cardiovascular Disease 10/07/22 Field Automobile Adjuster Relationship Specialty Start Date End Date Erin Sams RN PCP - General 03/19/22 Rodney Olivas MD [address] [place] [address] Hematology 03/19/22 Suman Baker MD, PhD [address] [place] [phone] Surgeon Surgical Oncology 07/08/22 Cheikh Coelho MD [address] [place] [address] Infectious Diseases Physician Cardiovascular Disease 10/07/22 Field Automobile Adjuster Relationship Specialty Start Date End Date Erin Sams RN PCP - General 03/19/22 Rodney Olivas MD [address] [place] [address] Hematology 03/19/22 Suman Baker MD, PhD [address] [place] [phone] Surgeon Surgical Oncology 07/08/22 Cheikh Coelho MD [address] [place] [address] Infectious Diseases Physician Cardiovascular Disease 10/07/22 Field Automobile Adjuster Relationship Specialty Start Date End Date Erin Sams IT OPERATIONS MANAGER [address] [place] [address] PCP - General 03/10/23 Rodney Olivas MD [address] [place] [address] Hematology 03/19/22 Suman Baker MD, PhD [address] [place] [address] Surgeon Surgical Oncology 07/08/22 Cheikh Coelho MD [address] [place] [address] Infectious Diseases Physician Cardiovascular Disease 10/07/22 Field Automobile Adjuster Relationship Specialty Start Date End Date Erin Sams IT OPERATIONS MANAGER [address] [place] [address] PCP - General 03/10/23 Rodney Olivas MD [facility] [place] [address] Hematology 03/19/22 Suman Baker MD, PhD [address] [place] [phone] Surgeon Surgical Oncology 07/08/22 Cheikh Coelho MD [address] [place] [phone] Infectious Diseases Physician Cardiovascular Disease 10/07/22 Scheduled Active and Recently Administ ered Medications (unrecognized section and content) Medication Order 05/27/2022 05/28/2022 05/29/2022 acetaminophen (TYLENOL) tablet 975 mg 975 mg, Oral, EVERY 8 HOURS, First dose on Wed05/26/22 at 1615, Until Discontinued, Maximum dose of acetaminophen is 4000 mg from all sources in 24 hours. 0700 (Given - Provider: Yadira Grier RN)1350 (Given - Provider: Alena Wade RN)2040 (Given - Provider: Craig Pagan, RUPERT) 0603 (Given - Provider: Craig Pagan RN)1213 (Given - Provider: Yvrose Chamberlain RN)2134 (Given - Provider: Craig Pagan, RUPERT) 0613 (Given - Provider: Craig Pagan RN)1400 (Canceled Entry - Provider: System Discharge - Comment: Automatically canceled at discontinue of medication order) Enoxaparin Sodium (LOVENOX) injection 40 mg (COMPLETED) 40 mg, Subcutaneous, EVERY 24 HOURS, 1 dose, First dose (after last modification) on Wed05/27/22 at 1600, , Indications: DVT/PE prophylaxis 1847 (Given - Provider: Alena Wade RN) Enoxaparin Sodium (LOVENOX) injection 40 mg 40 mg, Subcutaneous, EVERY 24 HOURS, First dose (after last reorder) on Eliana 05/28/22 at 1400, Until Discontinued, , Indications: DVT/PE prophylaxis 1418 (Given - Provider: Tania Louis RN) 1400 (Canceled Entry - Provider: System Discharge - Comment: Automatically canceled at discontinue of medication order) FLUoxetine (PROZAC) capsule 40 mg 40 mg, Oral, DAILY, First dose on Wed05/27/22 at 0900, Until Discontinued 0904 (Not Given - Provider: Alena Wade RN - Reason: Patient/family refused - Comment: pt states she has not taken this med in 2 months at home) 0917 (Not Given - Provider: Tania Louis RN - Reason: Patient/family refused) 0714 (Not Given - Provider: Tania Louis RN - Reason: Patient/family refused) ibuprofen (MOTRIN) tablet 600 mg 600 mg, Oral, EVERY 6 HOURS, First dose on Wed05/26/22 at 1800, Until Discontinued, Give with food 0001 (Given - Provider: Yadira Grier RN)0700 (Given - Provider: Yadira Grier RN)1350 (Given - Provider: Alena Wade RN)1847 (Given - Provider: Alena Wade RN)2324 (Not Given - Provider: Craig Pagan RN - Reason: Patient/family refused) 0604 (Given - Provider: Craig Pagan RN)1213 (Given - Provider: Yvrose Chamberlain RN)1730 (Given - Provider: Tania Louis RN) 0134 (Not Given - Provider: Craig Pagan RN - Reason: Patient/family refused)0613 (Given - Provider: Craig Pagan RN)1200 (Canceled Entry - Provider: System Discharge - Comment: Automatically canceled at discontinue of medication order) magnesium sulfate 1 g in dextrose 5% 100 mL premix IVPB (COMPLETED) 1 g, Intravenous, Administer over 60 Minutes, ONCE, 1 dose, On Wed05/27/22 at 0545 0708 ($$New Bag$$ - Provider: Yadira Grier RN)0708 (Rate/Dose Verify - Provider: Alena Wade RN)0708 (Rate/Dose Verify - Provider: Alena Wade, RUPERT)0709 (Rate/Dose Verify - Provider: Alena Wade, RN)0809 (Stopped - Provider: Alena Wade RN) Magnesium Sulfate 4 g in sterile water 50 ml premix IVPB (COMPLETED) 4 g, Intravenous, Administer over 4 Hours, ONCE, 1 dose, On Wed05/28/22 at 0600 0606 ($$New Bag$$ - Provider: Craig Pagan RN)0607 (Rate/Dose Verify - Provider: Tania Louis RN)0613 (Rate/Dose Verify - Provider: Tania Louis RN)0613 (Rate/Dose Verify - Provider: Tania Louis RN)0709 (Rate/Dose Verify - Provider: Tania Louis RN)0825 (Rate/Dose Verify - Provider: Tania Louis RN)1023 (Stopped - Provider: Tania Louis RN) OLANZapine (zyPREXA ZYDIS) disintegrating tablet 5 mg 5 mg, Oral, DAILY AT BEDTIME, First dose on Wed05/25/22 at 2100, Until Discontinued, Administer intact tablet to dissolve in mouth; do not split, crush, or chew. 2039 (Not Given - Provider: Craig Pagan RN - Reason: Patient/family refused) 2134 (Not Given - Provider: Craig Pagan RN - Reason: Patient/family refused) pantoprazole (PROTONIX) injection 40 mg (CANCELED) 40 mg, Intravenous, DAILY, First dose on 05/23/22 at 0900, Until Discontinued, Dilute each 40 mg vial with 10 mL of NS. All bolus doses, whether 40 mg or 80 mg, should be administered over at least two minutes., Indications: GERD 904 (Given - Provider: Alena Wade RN) pantoprazole (PROTONIX) tablet DR 40 mg 40 mg, Oral, DAILY, First dose on Eliana 05/28/22 at 0915, Until Discontinued, Swallow whole; do not crush or chew., Indications: GERD 0916 (Given - Provider: Tania Louis RN) 0744 (Given - Provider: Tania Louis, RUPERT) senna (SENOKOT) tablet 8.6 mg 8.6 mg, Oral, DAILY, First dose on Wed05/27/22 at 0900, Until Discontinued 09 (Given - Provider: Alena Wade RN) 0916 (Given - Provider: Tania Louis, RUPERT) 0744 (Given - Provider: Tania Louis, RUPERT) Continuous Medication Order 05/27/2022 05/28/2022 05/29/2022 bupivacaine (MARCAINE) 0.125% and fentaNYL (SUBLIMAZE) 4 mcg/mL epidural (CANCELED) Epidural, CONTINUOUS, Starting on Wed05/22/22 at 0745, Until Eliana 05/28/22 at 0912, To be managed and titrated by provider only. 0304 (Rate/Dose Verify - Provider: Yadira Grier RN)0659 (Epidural Holmen Volume/Shift Total - Provider: Yadira Grier RN - Comment: shift total: 175 ml remaining)1105 (Rate/Dose Verify - Provider: Alena Wade RN)1122 (Rate/Dose Verify - Provider: Alena Wade RN)1459 (Rate/Dose Verify - Provider: Alena Wade RN)1555 (Rate/Dose Verify - Provider: Alena Wade RN)1848 (Rate/Dose Verify - Provider: Alena Wade RN)1849 (Rate/Dose Verify - Provider: Alena Wade, RN)1910 (Epidural Holmen Volume/Shift Total - Provider: Alena Wade RN - Comment: 100mL left in cartridge) 0100 (Epidural Holmen Volume/Shift Total - Provider: Craig Pagan RN - Comment: 69ml remain)0307 (Rate/Dose Verify - Provider: Craig Pagan RN)0709 (Rate/Dose Verify - Provider: Tania Louis RN)1030 (Stopped - Provider: Tania Louis RN) dextrose 5% and sodium chloride 0.45% 1,000 ml with potassium chloride 20 mEq premix IV solution (CANCELED) Intravenous, at 50 mL/hr, CONTINUOUS, Starting on Wed05/22/22 at 1315, Until Eliana 05/28/22 at 1453 0304 (Rate/Dose Verify - Provider: Yadira Grier RN)0308 (Paused - Provider: Yadira Grier RN)0309 (Restarted - Provider: Yadira Grier RN)0633 (Paused - Provider: Yadira Grier RN)0633 (Restarted - Provider: Yadira Grier RN)0659 (Rate/Dose Verify - Provider: Yadira Grier RN)0909 ($$New Bag$$ - Provider: Alena Wade RN)1122 (Rate/Dose Verify - Provider: Alena Wade RN)1227 (Paused - Provider: Alena Wade RN)1239 (Restarted - Provider: Alena Wade, RN)1459 (Rate/Dose Verify - Provider: Alena Wade RN)1555 (Rate/Dose Verify - Provider: Alena Wade RN)1846 (Canceled Entry - Provider: Alena Wade RN)1847 (Rate/Dose Change - Provider: Alena Wade RN)1848 (Rate/Dose Verify - Provider: Alena Wade RN)1849 (Rate/Dose Verify - Provider: Alena Wade RN) 0046 (Rate/Dose Verify - Provider: Craig Pagan RN)0048 (Rate/Dose Verify - Provider: Craig Pagan RN)0307 (Rate/Dose Verify - Provider: Craig Pagan RN)0613 (Rate/Dose Verify - Provider: Tania Louis RN)0709 (Rate/Dose Verify - Provider: Tania Louis RN)0943 (Rate/Dose Verify - Provider: Tania Louis RN)1215 (Rate/Dose Verify - Provider: Tania Louis RN)1354 (Rate/Dose Verify - Provider: Tania Louis RN)1502 (Stopped - Provider: Tania Louis RN) PRN Medication Order 05/27/2022 05/28/2022 05/29/2022 benzocaine-menthol (CEPACOL) 15-3.6 MG per lozenge 1 lozenge 1 lozenge, Oral, NEEDED, Starting on Wed05/23/22 at 1241, Until Wed05/29/22 at 1402, Sore Throat, Max 8 lozenges/day Patient may self-administer. diphenhydrAMINE (BENADRYL) injection 25 mg(Linked Group 1) 25 mg, Intravenous, DAILY AT BEDTIME NEEDED, Starting on Wed05/22/22 at 1526, Until Wed05/29/22 at 1402, Itching diphenhydrAMINE (BENADRYL) tablet 25 mg(Linked Group 1) 25 mg, Oral, DAILY AT BEDTIME NEEDED, Starting on Wed05/22/22 at 1526, Until Wed05/29/22 at 1402, Itching ondansetron (ZOFRAN) tablet 4 mg(Linked Group 2) 4 mg, Oral, EVERY 6 HOURS NEEDED, Starting on Wed05/22/22 at 1526, Until Wed05/29/22 at 1402, Nausea / Vomiting, 1st line ondansetron (ZOFRAN) tablet 4 mg(Linked Group 2) 4 mg, Per NG tube, EVERY 6 HOURS NEEDED, Starting on Wed05/22/22 at 1526, Until Wed05/29/22 at 1402, Nausea / Vomiting, 1st line ondansetron 4mg/2ml (ZOFRAN) injection 4 mg(Linked Group 2) 4 mg, Intravenous, EVERY 6 HOURS NEEDED, Starting on Wed05/22/22 at 1526, Until Wed05/29/22 at 1402, Nausea / Vomiting, 1st line oxyCODONE (ROXICODONE) tablet 5 mg (CANCELED) 5 mg, Oral, EVERY 4 HOURS NEEDED, Starting on Wed05/22/22 at 1526, Until Wed05/28/22 at 1239, Moderate Pain, Severe Pain, For Moderate Pain. Use for severe pain if IV not available. For moderate or severe pain: give non-opioid with oxycodone if frequency allows. Please contact team if dose is ineffective. 0916 (Given - Provider: Tania Louis RN) oxyCODONE (ROXICODONE) tablet 5 mg(Linked Group 3) 5 mg, Oral, EVERY 4 HOURS NEEDED, Starting on Wed05/28/22 at 1239, Until Wed05/29/22 at 1402, Moderate Pain 1302 (See Alternative - Provider: Yvrose Chamberlain RN)173 (See Alternative - Provider: Tania Louis RN)2133 (See Alternative - Provider: Craig Pagan RN) 0425 (See Alternative - Provider: Craig Pagan RN)0854 (See Alternative - Provider: Tania Louis RN) oxyCODONE HCl (ROXICODONE) tablet 10 mg(Linked Group 3) 10 mg, Oral, EVERY 4 HOURS NEEDED, Starting on Wed05/28/22 at 1239, Until Wed05/29/22 at 1402, Severe Pain 1302 (Given - Provider: Yvrose Chamberlain RN)173 (Given - Provider: Tania Louis RN)2133 (Given - Provider: Craig Pagan RN) 0425 (Given - Provider: Craig Pagan RN)0854 (Given - Provider: Tania Louis RN) phenol (CHLORASEPTIC) 1.4 % oral spray 2 spray 2 spray, Mouth/Throat, NEEDED, Starting on Wed05/22/22 at 1554, Until Wed05/29/22 at 1402, Sore Throat, Patient may self-administer. sodium chloride 0.9% IV solution 250 mL Intravenous, at 20 mL/hr, NEEDED, Starting on Wed05/22/22 at 1526, Until Wed05/29/22 at 1402, Carrier Fluid - See Admin. Inst, 250mL 0.9NS to be used as carrier fluid for intermittent small volume or piggyback medication administration as needed. Infusion rate of the carrier fluid should be set at 20 mL/hr unless the rate as the intermittent medication is less than 20 mL/hr. For intermittent medications with a rate less than 20 mL/hr set the carrier fluid at that rate of the intermittent or piggy back medication. 0707 ($$New Bag$$ - Provider: Yadira Grier RN)0707 (Rate/Dose Verify - Provider: Alena Wade RN)0809 (Rate/Dose Verify - Provider: Alena Wade RN)1122 (Rate/Dose Verify - Provider: Alena Wade RN)1225 (Paused - Provider: Alena Wade RN)1239 (Restarted - Provider: Alena Wade RN)1312 (Paused - Provider: Alena Wade RN)1314 (Restarted - Provider: Alena Wade RN)1459 (Rate/Dose Verify - Provider: Alena Wade RN)1555 (Rate/Dose Verify - Provider: Alena Wade RN)1726 (Paused - Provider: Alena Wade RN)1731 (Restarted - Provider: Alena Wade RN)1848 (Rate/Dose Verify - Provider: Alena Wade RN)1849 (Rate/Dose Verify - Provider: Alena Wade RN)1958 (Paused - Provider: Craig Pagan RN)2003 (Restarted - Provider: Craig Pagan, RN)2036 (Stopped - Provider: Craig Pagan, RN)2038 (Stopped - Provider: Craig Pagan, RN) Linked Groups Order Group 1: diphenhydrAMINE (BENADRYL) injection 25 mgJump to med 25 mg, Intravenous, DAILY AT BEDTIME NEEDED, Starting on Wed05/22/22 at 1526, Until Wed05/29/22 at 1402, Itching Or diphenhydrAMINE (BENADRYL) tablet 25 mgJump to med 25 mg, Oral, DAILY AT BEDTIME NEEDED, Starting on Wed05/22/22 at 1526, Until Wed05/29/22 at 1402, Itching Group 2: ondansetron 4mg/2ml (ZOFRAN) injection 4 mgJump to med 4 mg, Intravenous, EVERY 6 HOURS NEEDED, Starting on Wed05/22/22 at 1526, Until Wed05/29/22 at 1402, Nausea / Vomiting, 1st line Or ondansetron (ZOFRAN) tablet 4 mgJump to med 4 mg, Oral, EVERY 6 HOURS NEEDED, Starting on Wed05/22/22 at 1526, Until Wed05/29/22 at 1402, Nausea / Vomiting, 1st line Or ondansetron (ZOFRAN) tablet 4 mgJump to med 4 mg, Per NG tube, EVERY 6 HOURS NEEDED, Starting on Wed05/22/22 at 1526, Until Wed05/29/22 at 1402, Nausea / Vomiting, 1st line Group 3: oxyCODONE (ROXICODONE) tablet 5 mgJump to med 5 mg, Oral, EVERY 4 HOURS NEEDED, Starting on Wed05/28/22 at 1239, Until Wed05/29/22 at 1402, Moderate Pain Or oxyCODONE HCl (ROXICODONE) tablet 10 mgJump to med 10 mg, Oral, EVERY 4 HOURS NEEDED, Starting on Wed05/28/22 at 1239, Until Wed05/29/22 at 1402, Severe Pain FOR RECORDS PERTAINING TO PATIENTS WHO ARE OR HAVE BEEN ENROLLED IN A CHEMICAL DEPENDENCY/SUBSTANCEABUSE PROGRAM, SOME INFORMATION MAY BE OMITTED. This clinical summary was aggregated from multiple sources. Caution should be exercised in using it in the provision of clinical care. This summary normalizes information from multiple sources, and as a consequence, information in this document may materially change the coding, format and clinical context of patient data. In addition, data may be omitted in some cases. CLINICAL DECISIONS SHOULD BE BASED ON THE PRIMARY CLINICAL RECORDS. [facility]. provides no warranty or guarantee of the accuracy or completeness of information in this document.
[2023-08-21 14:00] VITALS: BP 121/77; PULSE 90; RESP 16; TEMP 36.1
[2023-08-21 14:25] VITALS: BP 122/82
[2023-08-21 14:55] VITALS: BP 113/68; PULSE 76
[2023-08-21 14:58] VITALS: RESP 16
--- NOTE | 2023-08-21 15:28 | PC.NURSE ---
Pt denies right upper quadrant pain; but states she feels pressure from movement. Pt complains of a slight headache in back of head, pt explains she normally drinks caffeine and has not had any today. Pt denies taking any medication for pain at this time.
== END 2023-08-21 15:12 | disposition home or self-care (01) ==
LOC: FBC 13:53
PROVIDERS: Admitting Provider Obstetrics & Gynecology; PCP Nurse Practitioner Family; Visit Provider Obstetrics & Gynecology
DX: O12.13 Gestational proteinuria, third trimester (principal); O26.893 Other specified pregnancy related conditions, third trimester; R51.9 Headache, unspecified; R60.0 Localized edema; Z3A.33 33 weeks gestation of pregnancy
CPT/HCPCS: 59025; 81050; 84156; G0378; G0379

== ENCOUNTER 2023-08-21 13:55 | Outpatient (REF) | payer OTHER, SELFPAY ==
--- OUTSIDE RECORDS SUMMARY | 2023-08-21 14:00 | XMS_ITS | CCD ---
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 Name Role Phone Ava Lundberg Unavailable Unavailable Primary Care Provider Unavailemanuel Sams RN, Erin Primary Care Provider Unavaildanielle Olivas MD, Rodney Unavailable Latrell EMERY, Erin Primary Care Provider Unavaildanielle Olivas MD, Rodney Unavailable Oanh DUPONT, PhD, [facility] Unavailable Cheikh Coelho MD Unavailable [phone] ERIN SAMS Primary Care Unavailable ISABEL ., [...] Unavailable MISC, DR JACOBO Admitting Unavailable LATRELL, ERIN Primary Care Unavailable MISC, DR JACOBO Consulting Unavailable MISC, DR JACOBO Attending Unavailable LATRELL, ERIN Consulting Unavailable LATRELL, ERIN Attending Unavailable LATRELL, ERIN Primary Care Unavailable LATRELL, ERIN Admitting Unavailable Rodney Olivas MD Unavailable Oanh DUPONT, PhD, Suman Naylor Unavailable [phone] Cheikh Coelho MD Unavailable Erin Sams CNP Primary Care Provider LATRELL, [...] Referring Unavailable JORDAN, ANDREAS Attending Unavailable LATRELL, EIRN Primary Care Unavailable ERIN STONER Attending Unavailable [...] Referring Unavailable JORDAN, ANDREAS Attending Unavailable LATRELL, EIRN Primary Care Unavailable LATRELL, ERIN Primary Care Unavailable SUMAN BKAER Attending Unavailable SUMAN BAKER Admitting Unavailable SELF, [...] gabapentin Drug Allergy 10-07-2022 Nausea Only [facility] Medications Current Medications Medication Drug Class(es) Dates Sig (Normalized) Sig (Original) amylase 821715 unt / lipase 81327 unt / protease [id number] unt delayed release oral capsule (8 sources) Start: 09-10-2022 Pancrelipase, Pes-Fxum-Jvln, (Creon) 16640-438781 units Cap DR Ana Maria Indications: Exocrine [...] Pain. 0 Active 500 ml albumin human, retirement 50 mg/ml injection (1 source) Human Serum [...] oral spray 2 spray polyethylene glycol 3350 03663 mg powder for oral solution (2 sources) Osmotic Laxative Start: 04-23-2022 End: 06-09-2022 polyethylene glycol 17 GM/SCOOP Powder powder 11 AM: Take entire contents over 2 hours as instructed. 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 [...] a homogeneous time-resolved immunofluorescent assay manufactured by [employer] and performed on the [employer] Kryptor Compact Plus. Values obtained with different assay methods or kits may be different and cannot be used interchangeably. Test results cannot be interpreted as absolute evidence for the presence or absence of malignant disease. Test Performed by: [facility] [address] [place] [address] Laundry Folder: Ed Russo M.D. Ph.D.; CLIA# [id number] Performed By: #### C A, IPB, CHM7, MGO #### [facility] ([facility]) [address] [place] [address] MRI ABDOMEN/PELVIS WITHOUT C [facility] 03-11-2023 MRI ABDOMEN/PELVIS WITHOUT CONTRAST EXAM: MRI [...] not well visualized on this exam. Normal [facility] IMPRESSION: 1. Stable postoperative changes [...] is not well visualized on this exam. [facility] Radiology Study observation (narrative) [facility] MRI ABDOMEN/PELVIS WITHOUT C ONTRASTOrdered By: Mandi Montiel on 03-11-2023 [facility] Work Phone: CT ABDOMEN/PELVIS WITH AND [...] nodes and have decreased in size. Normal [facility] CT CHEST WITH CONTRASTon CT [...] have reviewed and approved this report. Normal [facility] CT Chest W contrast Jason [...] I have reviewed and approved this report. [facility] CT Chest W contrast IVOrdere d By: Benjamin Santos on 10-23-2022 [facility] CT Chest W contrast Jason Radiology Study observation (narrative) [facility] CT NECK WITH CONTRASTon -0 CT [...] mass or adenopathy in the neck. Normal [facility] CT Neck W contrast Jason [...] for mass or adenopathy in the neck. [facility] Radiology Study observation (narrative) [facility] CT Neck W contrast IVOrdered By: Miguel Espinal on 10-22-2022 [facility] Work Phone: Cardiac echo study Procedure Ordered By: Guerrero Carvalho on 10-22-2022 Ao peak raj 1.26 m/s [facility] Work Phone: Ao VTI 19.98 [facility] Work [facility]: Ascending aorta 2.62 cm [facility] Work Phone: AV LVOT peak gradient 3 mmHg [facility] Work Phone: AV mean gradient 3 mmHg [facility] Work Phone: AV peak gradient 6 mmHG [facility] Work Phone: AV valve area 2.24 cm2 [facility] Work Phone: AV Velocity Ratio 0.[address] [facility] Work Phone: FRANK (continuity Vmax) 1.82 cm2 [facility] Work Phone: FRANK (continuity VTI) 2.24 cm2 [facility] Work Phone: FRANK index (continuity Vmax) 1.06 m/s [facility] Work Phone: FRANK index (continuity VTI) 1.30 cm2/m2 [facility] Work Phone: Avg e' pk raj 0.15 m/s [facility] Work Phone: Avg E/e' ratio 4.89 [facility] Work Phone: Body surface area Derived from formula 1.72 m2 [facility] Work Phone: BP EF 62 % [facility] Work Phone: DI (Vmax) 0.70 [facility] Work Phone: DI (VTI) 0.86 m/2 [facility] Work Phone: E wave decelartion time 217.58 msec [facility] Work Phone: e' lateral pk raj 0.1597 m/s [facility] Work Phone: e' lateral pk raj 0.16 m/s [facility] Work Phone: e' septal pk raj 0.1401 m/s [facility] Work Phone: e' septal pk raj 0.14 m/s [facility] Work Phone: E/A ratio 0.74 [facility] Work Phone: E/e' lateral ratio 4.57 [facility] Work Phone: E/e' septal ratio 5.21 [facility] Work Phone: EF SP 2CH 64 [facility] Work Phone: EF SP 4CH 59 [facility] Work Phone: FS 33 % 28 - 44 % [facility] Work Phone: IVC ostium 1.46 cm [facility] Work Phone: IVS 0.61 cm [facility] Work Phone: LA AREA 2CH 13.72 cm2 [facility] Work Phone: LA area 4CH 9.33 cm2 [facility] Work Phone: LA ESV BP (MOD) 29 mL [facility] Work Phone: LA ESV BP (MOD) index 17 mL/m2 [facility] Work Phone: LA ESV SP 2CH (MOD) 37 mL [facility] Work Phone: LA ESV SP 4CH (MOD) 19 mL [facility] Work Phone: Long Strain -21.7 % [facility] Work Phone: LV EDV BP 71 mL [facility] Work Phone: LV EDV SP 2CH 76 mL [facility] Work Phone: LV EDV SP 4CH 61 mL [facility] Work Phone: LV ESV BP 27 mL [facility] Work Phone: LV ESV SP 2CH 27 mL [facility] Work Phone: LV ESV SP 4CH 25 mL [facility] Work Phone: LV mass 68.53 g [facility] Work Phone: LV Mass Index 39.8 g/m2 [facility] Work Phone: LV RWT 0.30 [facility] Work Phone: LV stroke volume BP (ml) 44 mL [facility] Work Phone: LV stroke volume index BP 25.58 mL/m2 [facility] Work Phone: LVIDD 4.10 cm [facility] Work Phone: LVIDS 2.73 cm [facility] Work Phone: LVOT area 2.60 cm2 [facility] Work Phone: LVOT diameter 1.82 cm [facility] Work Phone: LVOT peak raj 0.88 m/s [facility] Work Phone: LVOT peak VTI 17.19 cm [facility] Work Phone: LVOT stroke volume 45 cm3 [facility] Work Phone: LVOT stroke volume index 25.99 ml/m2 [facility] Work Phone: MV pk A raj 0.98 m/s [facility] Work Phone: MV pk E raj 0.73 m/s [facility] Work Phone: MV stenosis pressure 1/2 time 63.10 ms [facility] Work Phone: MV valve area p 1/2 method 3.49 cm2 [facility] Work Phone: [facility] AV VTI RATIO PRE STRESS 0.86 [facility] Work Phone: [facility] ECHO LV BIPLANE SYSTOLIC VOLUME INDEX 15.70 mL/m2 [facility] Work Phone: [facility] ECHO LV BP DIASTOLIC VOLUME INDEX 41.28 mL/m2 [facility] Work Phone: PV peak gradient 4 mmHg [facility] Work Phone: PV PK RAJ 0.97 m/s [facility] Work Phone: PW 0.61 cm [facility] Work Phone: RA vol index 4CH (MOD) 12.79 mL/m2 [facility] Work Phone: Right atrium volume 4 chamber method of disks 22 mL [facility] Work Phone: RV Area diastolic 21.[address] [facility] Work Phone: RV Area systolic 11.51 cm2 [facility] Work Phone: RV basal diam 3.02 cm [facility] Work Phone: RV Fractional area change 47.3 % [facility] Work Phone: RV long diam 7.35 cm [facility] Work Phone: RV Long Strain -28.0 % [facility] Work Phone: RV mid diam 2.68 cm [facility] Work Phone: RV S' 12.55 cm/s [facility] Work Phone: RVOT peak gradient 1 mmHg [facility] Work Phone: RVOT peak raj 0.59 m/s [facility] Work Phone: Sinus 2.70 cm [facility] Work Phone: STJ 2.41 cm [facility] Work Phone: Stroke Volume 45 cm/mL [facility] Work Phone: [facility]roke [facility] Work [facility]: TAPSE 2.03 cm [facility] Work Phone: [facility] Work Phone: Cardiac echo study Procedure [...] ventricular strain) was performed. Imaging system used: Meraki. Indications Indications for study: chest pain, other, tachycardia and shortness of breath - Neuroendocrine tumor, LAMN. Wall Scoring Score Index: 1.00 The left ventricular wall motion is normal. [facility] Radiology Study observation (narrative) [facility] ECHOCARDIOGRAMon 10-22-2022 Echocardiography ? Left Ventricle: [...] Role Read Date Guerrero Carvalho MD Test [employer]utter, Echo [place] 10/22/2022 Wall Scoring Score Index: 1.00 The [...] RA vol (more content not included)... Normal [facility] B-TYPE NATRIURETIC PEPTIDE ( BRAIN)on 10-07-2022 Interpretation and review of laboratory results Normal [facility] Natriuretic peptide B (Bld) [Mass/Vol] 4 pg/mL 0 - 100 pg/mL [facility] Natriuretic peptide B (Bld) [Mass/Vol] 4 pg/mL Normal 0-100 [facility] Comment on above: Performed By: #### C Danielel, RODRIGO, CHM7, MGO #### [facility] (DEFAULT) [address] [place] [address] CBC AND ELECTRONIC DIFFon Basophils (Bld) [#/Vol] 0.04 10*3/uL Normal 0.00-0.15 [facility] Comment on above: Performed By: #### Dayday Santos, SHANEKAB, CHM7, MGO #### [facility] (DEFAULT) [address] [place] [address]22 Basophils/100 WBC (Bld) 0.6 % Normal [facility] Comment on above: Performed By: #### Dayday Santos, IPB, CHM7, MGO #### [facility] (DEFAULT) [address] [place] [address] 24153 DIFF STATUS Electronic Differential Normal [facility] Comment on above: Performed By: #### Dayday Santos, IPB, CHM7, MGO #### [facility] (DEFAULT) [address] [place] [address] 36125 Eosinophils (Bld) [#/Vol] 0.18 10*3/uL Normal 0.00-0.42 [facility] Comment on above: Performed By: #### Dayday Santos, IPB, CHM7, MGO #### [facility] (DEFAULT) [address] [place] [address] 40010 Eosinophils/100 WBC (Bld) 2.5 % Normal [facility] Comment on above: Performed By: #### Dayday Santos, IPB, CHM7, MGO #### [facility] (DEFAULT) [address] [place] [address] 34598 Hematocrit (Bld) [Volume fraction] 39.3 % Normal 34.9-44.3 [facility] Comment on above: Performed By: #### Dayday Santos, IPB, CHM7, MGO #### [facility] (DEFAULT) [address] [place] [address] 05293 Hemoglobin (Bld) [Mass/Vol] 12.5 g/dL Normal 11.4-15.2 [facility] Comment on above: Performed By: #### Dayday A, IPB, CHM7, MGO #### [facility] (DEFAULT) [address] [place] [address] 54197 Immature Grans % 0.4 % Normal [facility] Comment on above: Performed By: #### Dayday Santos, IPB, CHM7, MGO #### [facility] (DEFAULT) [address] [place] [address] 67848 Immature Grans Absolute < Normal <=0.08 [facility] Comment on above: Performed By: #### Dayday Santos, IPB, CHM7, MGO #### [facility] (DEFAULT) [address] [place] [address] 08676 Lymphocytes (Bld) [#/Vol] 2.19 10*3/uL Normal 1.16-3.51 [facility] Comment on above: Performed By: #### Dayday Santos, IPBrett, CHM7, MGO #### [facility] (DEFAULT) [address] [place] [address] 68563 Lymphocytes/100 WBC (Bld) 30.6 % Normal [facility] Comment on above: Performed By: #### RODRIGO Rangel, CHM7, MGO #### [facility] (DEFAULT) [address] [place] [address] 91510 MCV (RBC) [Entitic vol] 84.2 fL Normal 79.6-97.7 [facility] Comment on above: Performed By: #### Dayday Santos IPB, CHM7, MGO #### [facility] (DEFAULT) [address] [place] [address] 84105 Mean Cell Hgb 26.8 pg Normal 25.9-33.9 [facility] Comment on above: Performed By: #### Dayday Santos IPB, CHM7, MGO #### [facility] (DEFAULT) [address] [place] [address] 99828 Mean Cell Hgb Conc 31.8 g/dL Normal 31.4-35.9 [facility] Comment on above: Performed By: #### Dayday Santos IPB, CHM7, MGO #### [facility] (DEFAULT) [address] [place] [address] 54882 Monocytes (Bld) [#/Vol] 0.50 10*3/uL Normal 0.22-0.87 [facility] Comment on above: Performed By: #### C A, IPB, CHM7, MGO #### [facility] (DEFAULT) [address] [place] [address] 78115 Monocytes/100 WBC (Bld) 7.0 % Normal [facility] Comment on above: Performed By: #### C A, IPB, CHM7, MGO #### [facility] (DEFAULT) [address] [place] [address] 42305 Nucleated RBC 0.0 /100 WBC Normal <=0.2 [facility] Comment on above: Performed By: #### C A, IPB, CHM7, MGO #### [facility] (DEFAULT) [address] [place] [address] 71657 Platelet mean volume (Bld) [Entitic vol] 9.5 fL Normal 8.5-12.2 [facility] Comment on above: Performed By: #### C A, IPB, CHM7, MGO #### [facility] (DEFAULT) [address] [place] [address] 47234 Platelets (Bld) [#/Vol] 355 10*3/uL Normal 150-393 [facility] Comment on above: Performed By: #### C A, IPB, CHM7, MGO #### [facility] (DEFAULT) [address] [place] [address] 70639 RBC (Bld) [#/Vol] 4.67 10*6/uL Normal 3.91-5.04 [facility] Comment on above: Performed By: #### C A, IPB, CHM7, MGO #### [facility] (DEFAULT) [address] [place] [address] 46829 RBC Distribution 13.2 % Normal 10.8-14.9 [facility] Comment on above: Performed By: #### C Danielle, IPB, CHM7, MGO #### [facility] (DEFAULT) [address] [place] [address] 87112 Segs + Bands Auto 58.9 % Normal [facility] Comment on above: Performed By: #### C A, IPB, CHM7, MGO #### [facility] (DEFAULT) [address] [place] [address] 71814 Segs + Bands,Absolute Auto 4.22 K/uL Normal 1.64-7.28 [facility] Comment on above: Performed By: #### Dayday A, IPB, CHM7, MGO #### [facility] (DEFAULT) [address] [place] [address] 70866 WBC (Bld) [#/Vol] 7.16 10*3/uL Normal 3.99-11.19 [facility] Comment on above: Performed By: #### Dayday A, IPB, CHM7, MGO #### [facility] (DEFAULT) [address] [place] [address] 96381 CHROMOGRANIN Aon 10-07-2022 Chromogranin A <20 Normal <93 [facility] Comment on above: Result Comment: ADDITIONAL INFORMATION This test was developed and its performance characteristics determined by [facility] in a manner consistent with CLIA requirements. [...] by [employer] and performed on the [employer] Kryptor Compact Plus. Values obtained with different assay methods or kits may be different and cannot be used interchangeably. Test results cannot be interpreted as absolute evidence for the presence or absence of malignant disease. Test Performed by: [facility] [address] [place] [address] Laundry Folder: Ed Russo M.D. Ph.D.; CLIA# [id number] Performed By: #### Y CHGRA #### [facility] (DEFAULT) [address] [address] COMPREHENSIVE METABOLIC PANE Shamir 10-07-2022 Albumin [Mass/Vol] 4.7 g/dL Normal 3.5-5.0 [facility] Comment on above: Performed By: #### Y CHGRA #### [facility] (DEFAULT) [address] [address] ALP [Catalytic activity/Vol] 53 U/L Normal 32-126 [facility] Comment on above: Performed By: #### Y CHGRA #### [facility] (DEFAULT) [address] [address] ALT [Catalytic activity/Vol] 25 U/L Normal 9-48 [facility] Comment on above: Performed By: #### Y CHGRA #### [facility] (DEFAULT) [address] [place] [address] 75097 Anion gap [Moles/Vol] 12 mmol/L Normal 7-17 [facility] Comment on above: Performed By: #### Y CHGRA #### [facility] (DEFAULT) [address] [address] AST [Catalytic activity/Vol] 16 U/L Normal 10-39 [facility] Comment on above: Performed By: #### Y CHGRA #### [facility] (DEFAULT) [address] [place] [address] 67362 Bilirubin [Mass/Vol] 0.4 mg/dL Normal <1.5 [facility] Comment on above: Performed By: #### Y CHGRA #### [facility] (DEFAULT) [address] [place] [address] 89373 Calcium [Mass/Vol] 9.5 mg/dL Normal 8.6-10.5 [facility] Comment on above: Performed By: #### Y CHGRA #### [facility] (DEFAULT) [address] [place] [address] 33569 Chloride [Moles/Vol] 101 mmol/L Normal 98-108 [facility] Comment on above: Performed By: #### Y CHGRA #### [facility] (DEFAULT) [address] [place] [address] 77704 CO2 [Moles/Vol] 28 mmol/L Normal 21-31 [facility] Comment on above: Performed By: #### Y CHGRA #### [facility] (DEFAULT) [address] [place] [address] 41159 Creatinine [Mass/Vol] 0.66 mg/dL Normal 0.50-1.20 [facility] Comment on above: Performed By: #### Y CHGRA #### [facility] (DEFAULT) [address] [place] [address] 61647 eGFR, CKD-EPI, Female > Normal >=60 [facility] Comment on above: Result Comment: Repo rted eGFR is based on the CKD-EPI 2020 equation using creatinine, age, and sex. Performed By: #### Y CHGRA #### [facility] (DEFAULT) [address] [place] [address] 64863 Glucose [Mass/Vol] 103 mg/dL High 70-99 [facility] Comment on above: Performed By: #### Y CHGRA #### [facility] (DEFAULT) [address] [place] [address] 05150 Osmolality [Osmolality] 286 mosm/kg Normal 278-305 [facility] Comment on above: Performed By: #### Y CHGRA #### [facility] (DEFAULT) [address] [place] [address] 48077 Potassium [Moles/Vol] 4.0 mmol/L Normal 3.5-5.0 [facility] Comment on above: Performed By: #### Y CHGRA #### [facility] (DEFAULT) [address] [place] [address] Protein [Mass/Vol] 7.6 g/dL Normal 6.4-8.3 [facility] Comment on above: Performed By: #### Y CHGRA #### [facility] (DEFAULT) [address] [place] [address] Sodium [Moles/Vol] 137 mmol/L Normal 135-145 [facility] Comment on above: Performed By: #### Y CHGRA #### [facility] (DEFAULT) [address] [place] [address] 06987 Urea nitrogen [Mass/Vol] 9 mg/dL Normal 7-25 [facility] Comment on above: Performed By: #### Y CHGRA #### [facility] (DEFAULT) [address] [place] [address] 36707 Urea nitrogen/Creatinine [Mass ratio] 14 mg/mg Normal [facility] Comment on above: Performed By: #### Y CHGRA #### [facility] (DEFAULT) [address] [place] [address] 33266 HIGH SENSITIVITY TROPONIN I - SINGLE ORDERon 10-07-2022 Interpretation and review of laboratory results Normal [facility] Troponin I.cardiac High sensitivity method [Mass/Vol] ng/L NINF - 34 ng/L [facility] hs-Troponin I <3 Normal <34 [facility] Comment on above: Order Comment: Acute Coronary Syndrome (ACS): Initial Evaluation and Management:[email or web address] Performed By: #### C Danielle, IPB, CHM7, MGO #### [facility] (DEFAULT) [address] [address] LACTATE DEHYDROGENASEon 09-17 LD Total 114 U/L Normal 100-190 [facility] Comment on above: Performed By: #### Y CHGRA #### [facility] (DEFAULT) [address] [address] MONOon 10-02-2022 Monocytes (Bld) [#/Vol] Negative Normal NEGATIVE [facility] Comment on above: Performed By: #### L IVER, LDH, BMP #### [facility] [address] [place] [address] Dr. Esthela Stevens CBC AUTO DIFFon 09-30-2022 BASO # 0.1 103/ul Normal 0.0-0.1 [facility] Comment on above: Performed By: #### L IVER, LDH, BMP #### [facility] [address] [place] [address] Dr. Esthela Stevens Basophils/100 WBC (Bld) 0.8 % Normal 0.2-2.0 [facility] Comment on above: Performed By: #### L IVER, LDH, BMP #### [facility] [address] [place] [address] Dr. Esthela Stevens EO # 0.1 103/ul Normal 0.0-0.7 [facility] Comment on above: Performed By: #### L IVER, LDH, BMP #### [facility] [address] [place] [address] Dr. Esthela Stevens Eosinophils/100 WBC (Bld) 1.7 % Normal 0.9-7.0 [facility] Comment on above: Performed By: #### L IVER, LDH, BMP #### [facility] [address] [place] [address] Dr. Esthela Stevens Erythrocyte distribution width (RBC) [Ratio] 13.1 % Normal 11.0-15.0 [facility] Comment on above: Performed By: #### L IVER, LDH, BMP #### [facility] [address] [place] [address] Dr. Esthela Stevens Hematocrit (Bld) [Volume fraction] 38.4 % Normal 36.0-48.0 [facility] Comment on above: Performed By: #### L IVER, LDH, BMP #### [facility] [address] [place] [address] Dr. Esthela Stevens Hemoglobin (Bld) [Mass/Vol] 12.4 g/dL Normal 12.0-16.0 [facility] Comment on above: Performed By: #### L IVER, LDH, BMP #### [facility] [address] [place] [address] Dr. Esthela Stevens IG # 0.02 10e3/ul Normal 0.00-0.03 [facility] Comment on above: Performed By: #### L IVER, LDH, BMP #### [facility] [address] [place] [address] Dr. Esthela Stevens IG % 0.3 % Normal 0.0-0.5 [facility] Comment on above: Performed By: #### L IVER, LDH, BMP #### [facility] [address] [place] [address] Dr. Esthela Stevens LYMPH # 2.2 103/ul Normal 1.2-3.8 [facility] Comment on above: Performed By: #### L IVER, LDH, BMP #### [facility] [address] [place] [address] Dr. Esthela Stevens Lymphocytes/100 WBC (Bld) 32.8 % Normal 20.5-60.0 [facility] Comment on above: Performed By: #### L IVER, LDH, BMP #### [facility] [address] [place] [address] Dr. Esthela Stevens MANUAL DIFF REQ NO Normal [facility] Comment on above: Performed By: #### L IVER, LDH, BMP #### [facility] [address] [place] [address] Dr. Esthela Stevens MCH (RBC) [Entitic mass] 27.1 pg Normal 26.7-34.0 [facility] Comment on above: Performed By: #### L IVER, LDH, BMP #### [facility] [address] [place] [address] Dr. Esthela Stevens MCHC (RBC) [Mass/Vol] 32.3 g/dL Normal 29.9-35.2 [facility] Comment on above: Performed By: #### L IVER, LDH, BMP #### [facility] [address] [place] [address] Dr. Esthela Stevens MCV (RBC) [Entitic vol] 83.8 fL Normal 81.0-99.0 [facility] Comment on above: Performed By: #### L IVER, LDH, BMP #### [facility] [address] [place] [address] Dr. Esthela Stevens MONO # 0.5 103/ul Normal 0.3-0.8 [facility] Comment on above: Performed By: #### L IVER, LDH, BMP #### [facility] [address] [place] [address] Dr. Esthela Stevens Monocytes/100 WBC (Bld) 8.0 % Normal 1.7-12.0 [facility] Comment on above: Performed By: #### L IVER, LDH, BMP #### [facility] [address] [place] [address] Dr. Esthela Stevens NEUT # 3.7 103/ul Normal 1.4-6.5 [facility] Comment on above: Performed By: #### L IVER, LDH, BMP #### [facility] [address] [place] [address] Dr. Esthela Stevens Neutrophils/100 WBC (Bld) 56.4 % Normal 43.0-75.0 [facility] Comment on above: Performed By: #### L IVER, LDH, BMP #### [facility] [address] [place] [address] Dr. Esthela Stevens Platelet mean volume (Bld) [Entitic vol] 9.3 fL Critically low 9.5-13.5 [facility] Comment on above: Performed By: #### L IVER, LDH, BMP #### [facility] [address] [place], [place] [id number] Dr. Esthela Stevens PLT 334 103/ul Normal 150-450 [facility] Comment on above: Performed By: #### L IVER, LDH, BMP #### [facility] [address] [place] [address] Dr. Esthela Steevns RBC 4.58 106/ul Normal 4.20-5.40 [facility] Comment on above: Performed By: #### L IVER, LDH, BMP #### [facility] [address] [place] [address] Dr. Esthela Stevens WBC 6.6 103/ul Normal 4.0-11.0 [facility] Comment on above: Performed By: #### L IVER, LDH, BMP #### [facility] [address] [place] [address] Dr. Esthela Stevens LDHon 09-30-2022 LDH 122 U/L Normal 81-234 [facility] Comment on above: Performed By: #### L IVER, LDH, BMP #### [facility] [address] [place] [address] Dr. Esthela Stevens LIVER PROFILEon 09-30-2022 Albumin [Mass/Vol] 4.1 g/dL Normal 3.4-5.0 [facility] Comment on above: Performed By: #### L IVER, LDH, BMP #### [facility] [address] [place] [address] Dr. Esthela Stevens Albumin/Globulin [Mass ratio] 1.2 {ratio} Normal [facility] Comment on above: Performed By: #### L IVER, LDH, BMP #### [facility] [address] [place] [address] Dr. Esthela Stevens ALP [Catalytic activity/Vol] 75 U/L Normal 46-116 [facility] Comment on above: Performed By: #### L IVER, LDH, BMP #### [facility] [address] [place] [address] Dr. Esthela Stevens ALT [Catalytic activity/Vol] 41 U/L Normal 14-59 [facility] Comment on above: Performed By: #### L IVER, LDH, BMP #### [facility] [address] [place] [address] Dr. Esthela Stevens AST [Catalytic activity/Vol] 30 U/L Normal 15-37 [facility] Comment on above: Performed By: #### L IVER, LDH, BMP #### [facility] [address] [place] [address] Dr. Esthela Stevens BILI, CONJUGATED 0.1 mg/dL Normal 0.0-0.2 [facility] Comment on above: Performed By: #### L IVER, LDH, BMP #### [facility] [address] [place] [address] Dr. Esthela Stevens Bilirubin [Mass/Vol] 0.5 mg/dL Normal 0.2-1.0 [facility] Comment on above: Performed By: #### L IVER, LDH, BMP #### [facility] [address] [place] [address] Dr. Esthela Stevens Globulin (S) [Mass/Vol] 3.3 g/dL Normal [facility] Comment on above: Performed By: #### L IVER, LDH, BMP #### [facility] [address] [place] [address] Dr. Esthela Stevens Protein [Mass/Vol] 7.4 g/dL Normal 6.4-8.2 [facility] Comment on above: Performed By: #### L IVER, LDH, BMP #### [facility] [address] [place] [address] Dr. Esthela Stevens PROF CHEM 8 (BAS METB)on Anion gap [Moles/Vol] 9.2 mmol/L Normal [facility] Comment on above: Performed By: #### L IVER, LDH, BMP #### [facility] [address] [place] [address] Dr. Esthela Stevens Calcium [Mass/Vol] 9.0 mg/dL Normal 8.5-10.1 [facility] Comment on above: Performed By: #### L IVER, LDH, BMP #### [facility] [address] [place] [address] Dr. Esthela Stevens Chloride [Moles/Vol] 102 mmol/L Normal 98-107 [facility] Comment on above: Performed By: #### L IVER, LDH, BMP #### [facility] [address] [address] [address] Esthela Stevens CO2 [Moles/Vol] 27.8 mmol/L Normal 21.0-32.[address] [facility] Comment on above: Performed By: #### L IVER, LDH, BMP #### [facility] [address] [address] [address] Esthela Stevens Creatinine [Mass/Vol] 0.63 mg/dL Normal 0.55-1.02 [facility] Comment on above: Performed By: #### L IVER, LDH, BMP #### [facility] [address] [place] [address] Dr. Esthela Stevens EGFR-AF GREENLANDIC >60 Normal >=[address] [facility] Comment on above: Performed By: #### L IVER, LDH, BMP #### [facility] [address] [place] [address] Dr. Esthela Stevens EGFR-NON AF GREENLANDIC >60 Normal >=60 [facility] Comment on above: Performed By: #### L IVER, LDH, BMP #### [facility] [address] [place] [address] Dr. Esthela Stevens Glucose [Mass/Vol] 106 mg/dL Normal 74-106 [facility] Comment on above: Performed By: #### L IVER, LDH, BMP #### [facility] [address] [address] [address] Esthela Stevens Potassium [Moles/Vol] 4.0 mmol/L Normal 3.5-5.1 [facility] Comment on above: Performed By: #### L IVER, LDH, BMP #### [facility] [address] [place] [address] Dr. Esthela Stevens Sodium [Moles/Vol] 135 mmol/L Critically low 136-145 [facility] Comment on above: Performed By: #### L IVER, LDH, BMP #### [facility] [address] [place], [place] [address] Dr. Esthela Stevens Urea nitrogen [Mass/Vol] 9.0 mg/dL Normal 7.0-18.0 [facility] Comment on above: Performed By: #### L IVER, LDH, BMP #### [facility] [address] [place], [place] [address] Dr. Esthela Stevens Urea nitrogen/Creatinine [Mass ratio] 14.3 mg/mg Normal [facility] Comment on above: Performed By: #### L IVER, LDH, BMP #### [facility] [address] [place], [place] [address] Dr. Esthela Stevens MG MAMM DIAGNOSTIC 3D EFREN CA Don 09-23-2022 MG MAMM DIAGNOSTIC 3D EFREN CAD Patient: ZAINAB SWIFT Exam Date: 09/23/2022 : 1995 Gender:F [facility]ing : [facility] Admission #: [id number] Family : Order #: [id number] CLICK HERE TO VIEW EXAM RADIOLOGY REPORT [...] cervical cancer at age 42. LOCATION: [facility] BREAST COMPOSITION: Extremely dense, which lowers the [...] M.D. on 09/23/2022 at 11:31 Normal [facility] US BREAST EFREN LIMITEDon 03-0 US BREAST EFREN LIMITED Patient: ZAINAB SWITF Exam Date: 09/23/2022 : 1995 Gender:F [facility]ing : [facility] Admission #: [id number] Family : Order #: [id number] CLICK HERE TO VIEW EXAM RADIOLOGY REPORT [...] cervical cancer at age 42. LOCATION: [facility] BREAST COMPOSITION: Extremely dense, which lowers the [...] M.D. on 09/23/2022 at 11:31 Normal [facility] Covid-19 PCR (CVDTBH)on 08-20 SARS-CoV-2 (COVID-19) RNA JORGE LUIS+probe Ql (Unsp spec) Not detected Normal NOT DETECTED [facility] Comment on above: Result Comment: When diagnostic [...] for this test is supported by the Customer Relations Representative of Health and Human Service's declaration that [...] used). Performed By: #### P REG #### [facility] [address] [place] [address] Dr. Esthela Stevens INFLUENZA A AND B [facility] 09-15 [facility] SEE BELOW Normal [facility] Comment on above: Result Comment: Nega tive for Flu A protein angiten. Infection due to Flu A cannot be ruled out. Flu A angiten in the sample may be below the detection limit of the test. Performed By: #### L IVER, LDH, BMP #### [facility] [address] [place] [address] Dr. Esthel[facility] Stevens [facility] BEL[facility] Normal [facility] Comment on above: Result Comment: Nega tive for Flu B protein antigen. Infection due to Flu B cannot be ruled out. Flu B antigen in the sample may be below the detection limit of the test. Performed By: #### L IVER, LDH, BMP #### [facility] [address] [place] [address] Dr. Esthela Stevens INFLUENZA A AG Negative Normal NEGATIVE SEE COMMENT [facility] Comment on above: Performed By: #### L IVER, LDH, BMP #### [facility] [address] [place] [address] Dr. Esthela Stevens INFLUENZA B AG Negative Normal NEGATIVE SEE COMMENT [facility] Comment on above: Performed By: #### L IVER, LDH, BMP #### [facility] [address] [address] [address] Esthela Stevens HUNTER by IFAon 09-04-2022 Antinuclear Antibodies, IFA Positive Abnormal [facility] Comment on above: Result Comment: Nega tive <1:80 Borderline 1:80 Positive >1:80 Performed By: #### P REG #### [facility] [address] [address] [address] Esthela Stevens Centriole Pattern Normal [facility] Comment on above: Performed By: #### P REG #### [facility] [address] [address] [address] Esthela Stevens Centromere Pattern Normal [facility] Comment on above: Performed By: #### P REG #### [facility] [address] [address] [address] Esthela Stevens Homogeneous Pattern 1:160 Critically high [facility] Comment on above: Result Comment: ICAP nomenclature: AC-1 Performed By: #### P REG #### [facility] [address] [address] [address] Esthela Stevens Midbody Pattern Normal [facility] Comment on above: Performed By: #### P REG #### [facility] [address] [address] [address] Esthela Stevens Note: Comment Normal [facility] Comment on above: Result Comment: For more [...] titers Nucleosomes, Histones Drug-induced SLE Speckled Sm, ED SPECIAL EDUCATION TEACHER, SCL-70, SLE,MCTD,PSS (diffuse form), SS-A/SS-B Sjogrens Nucleolar SCL-70, PM-1/SCL High titers Scleroderma, PM/DM Centromere Centromere PSS (limited form) w/Crest syndrome variable Nuclear Dot Sp100,[id number] Primary Biliary Cirrhosis Nuclear GP210, Primary Biliary Cirrhosis Membrane italia A,B,C Performed By: #### P REG #### [facility] [address] [place] [address] Dr. Esthela Stevens Nuclear Dot Pattern Normal [facility] Comment on above: Performed By: #### P REG #### [facility] [address] [place] [address] Dr. Esthela Stevens Nuclear Membrane Pattern Normal [facility] Comment on above: Performed By: #### P REG #### [facility] [address] [place] [address] Dr. Esthela Stevens Nucleolar Pattern Normal [facility] Comment on above: Performed By: #### P REG #### [facility] [address] [place] [address] Dr. Esthela Stevens PCNA Pattern Normal [facility] Comment on above: Performed By: #### P REG #### [facility] [address] [place] [address] Dr. Esthela Stevens Speckled Pattern Normal [facility] Comment on above: Performed By: #### P REG #### [facility] [address] [place] [address] Dr. Esthela Stevens Spindle Apparatus Pattern Normal [facility] Comment on above: Performed By: #### P REG #### [facility] [address] [place] [address] Dr. Esthela Stevens ANTISTREPTOLYSIN O AB (ASO)o n 09-01-2022 Antistreptolysin O Ab 58.8 IU/mL Normal 0.0-200.0 [facility] Comment on above: Performed By: #### L IVER, LDH, BMP #### [facility] [address] [place] [address] Dr. Esthela Stevens INSULINon 09-01-2022 Insulin 12.2 uIU/mL Normal 2.6-24.9 [facility] Comment on above: Performed By: #### I NSULIN #### [facility] [address] [place] [address] Dr. Esthela Stevens RHEUMATOID FACTORon 09-01-19 23 RA Latex Turbid. <10.0 Normal <14.[address] [facility] Comment on above: Performed By: #### L IVER, LDH, BMP #### [facility] [address] [address] [address] Esthela Stevens CBC AUTO DIFFon 08-31-2022 BASO # 0.0 103/ul Normal 0.0-0.1 [facility] Comment on above: Performed By: #### P REG #### [facility] [address] [place] [address] Dr. Esthela Stevens Basophils/100 WBC (Bld) 0.6 % Normal 0.2-2.0 [facility] Comment on above: Performed By: #### P REG #### [facility] [address] [place] [address] Dr. Esthela Stevens EO # 0.1 103/ul Normal 0.0-0.7 [facility] Comment on above: Performed By: #### P REG #### [facility] [address] [place] [address] Dr. Esthela Stevens Eosinophils/100 WBC (Bld) 1.5 % Normal 0.9-7.0 [facility] Comment on above: Performed By: #### P REG #### [facility] [address] [place] [address] Dr. Esthela Stevens Erythrocyte distribution width (RBC) [Ratio] 12.7 % Normal 11.0-15.0 [facility] Comment on above: Performed By: #### P REG #### [facility] [address] [place] [address] Dr. Esthela Stevens Hematocrit (Bld) [Volume fraction] 38.4 % Normal 36.0-48.0 [facility] Comment on above: Performed By: #### P REG #### [facility] [address] [place] [address] Dr. Esthela Stevens Hemoglobin (Bld) [Mass/Vol] 12.7 g/dL Normal 12.0-16.0 [facility] Comment on above: Performed By: #### P REG #### [facility] [address] [place] [address] Dr. Esthela Stevens IG # 0.02 10e3/ul Normal 0.00-0.03 [facility] Comment on above: Performed By: #### P REG #### [facility] [address] [address] [address] Esthela Stevens IG % 0.3 % Normal 0.0-0.5 [facility] Comment on above: Performed By: #### P REG #### [facility] [address] [place] [address] Dr. Esthela Stevens LYMPH # 2.0 103/ul Normal 1.2-3.8 [facility] Comment on above: Performed By: #### P REG #### [facility] [address] [place] [address] Dr. Esthela Stevens Lymphocytes/100 WBC (Bld) 31.2 % Normal 20.5-60.0 [facility] Comment on above: Performed By: #### P REG #### [facility] [address] [place] [address] Dr. Esthela Stevens MANUAL DIFF REQ NO Normal [facility] Comment on above: Performed By: #### P REG #### [facility] [address] [place] [address] Dr. Esthela Stevens MCH (RBC) [Entitic mass] 27.1 pg Normal 26.7-34.0 [facility] Comment on above: Performed By: #### P REG #### [facility] [address] [place] [address] Dr. Esthela Stevens MCHC (RBC) [Mass/Vol] 33.1 g/dL Normal 29.9-35.2 [facility] Comment on above: Performed By: #### P REG #### [facility] [address] [place] [address] Dr. Esthela Stevens MCV (RBC) [Entitic vol] 82.1 fL Normal 81.0-99.0 [facility] Comment on above: Performed By: #### P REG #### [facility] [address] [place] [address] Dr. Esthela Stevens MONO # 0.4 103/ul Normal 0.3-0.8 [facility] Comment on above: Performed By: #### P REG #### [facility] [address] [place] [address] Dr. Esthela Stevens Monocytes/100 WBC (Bld) 6.4 % Normal 1.7-12.0 [facility] Comment on above: Performed By: #### P REG #### [facility] [address] [place] [address] Dr. Esthela Stevens NEUT # 3.9 103/ul Normal 1.4-6.5 [facility] Comment on above: Performed By: #### P REG #### [facility] [address] [place] [address] Dr. Esthela Stevens Neutrophils/100 WBC (Bld) 60.0 % Normal 43.0-75.0 [facility] Comment on above: Performed By: #### P REG #### [facility] [address] [place] [address] Dr. Esthela Stevens Platelet mean volume (Bld) [Entitic vol] 9.2 fL Critically low 9.5-13.5 [facility] Comment on above: Performed By: #### P REG #### [facility] [address] [place] [address] Dr. Esthela Stevens PLT 390 103/ul Normal 150-450 [facility] Comment on above: Performed By: #### P REG #### [facility] [address] [place] [address] Dr. Esthela Stevens RBC 4.68 106/ul Normal 4.20-5.40 [facility] Comment on above: Performed By: #### P REG #### [facility] [address] [place] [address] Dr. Esthela Stevens WBC 6.5 103/ul Normal 4.0-11.0 [facility] Comment on above: Performed By: #### P REG #### [facility] [address] [place] [address] Dr. Esthela Stevens CRPon 08-31-2022 CRP [Mass/Vol] mg/L Normal <=1.0 [facility] Comment on above: Performed By: #### L IVER, LDH, BMP #### [facility] [address] [address] [address] Esthela Stevens FREE THYROXINE INDEX T7on FTI 2.94 Normal 1.30-4.50 [facility] Comment on above: Performed By: #### L IVER, LDH, BMP #### [facility] [address] [place] [address] Dr. Esthela Stevens T3U 33.0 % Normal 30.0-39.0 [facility] Comment on above: Performed By: #### L IVER, LDH, BMP #### [facility] [address] [place] [address] Dr. Esthela Stevens T4 [Mass/Vol] 8.90 ug/dL Normal 4.80-13.90 [facility] Comment on above: Performed By: #### L IVER, LDH, BMP #### [facility] [address] [place] [address] Dr. Esthela Stevens GLYCOHEMOGLOBIN A1Con 2022 ADA RECOMMENDATION SEE BELOW Normal [facility] Comment on above: Result Comment: ADA RECOMMENDED LIMIT 4.0 - 6.0 ADA THERAPEUTIC TARGET < 7.0 ACTION SUGGESTED > 7.0 Performed By: #### L IVER, LDH, BMP #### [facility] [address] [place] [address] Dr. Esthela Stevens Glucose [Mass/Vol] 111 mg/dL Normal [facility] Comment on above: Performed By: #### L IVER, LDH, BMP #### [facility] [address] [place] [address] Dr. Esthela Stevens HbA1c (Bld) [Mass fraction] 5.5 % Normal 4.5-6.2 [facility] Comment on above: Performed By: #### L IVER, LDH, BMP #### [facility] [facility] [address] [place] [address] Dr. Esthela Stevens IRONon 08-31-2022 Iron [Mass/Vol] 34.0 ug/dL Critically low 50.0-170.0 [facility] Comment on above: Performed By: #### L IVER, LDH, BMP #### [facility] [address] [address] [address] Esthela Stevens LIPID PROFILEon 08-31-2022 CHOL-HDL RATIO NORM SEE BELOW Normal [facility] Comment on above: Result Comment: 3.3 - 4.4 LOW RISK 4.4 - 7.1 AVERAGE RISK 7.1 - 11.0 MODERATE RISK >11.0 HIGH RISK Performed By: #### L IVER, LDH, BMP #### [facility] [address] [place] [address] Dr. Esthela Stevens Cholesterol [Mass/Vol] 168 mg/dL Normal <=200 [facility] Comment on above: Performed By: #### L IVER, LDH, BMP #### [facility] [address] [place] [address] Dr. Esthela Stevens Cholesterol in HDL [Mass/Vol] 51 mg/dL Normal 40-60 [facility] Comment on above: Performed By: #### L IVER, LDH, BMP #### [facility] [address] [place] [address] Dr. Esthela Stevens Cholesterol in LDL [Mass/Vol] 91.8 mg/dL Normal [facility] Comment on above: Performed By: #### L IVER, LDH, BMP #### [facility] [address] [place] [address] Dr. Esthela Stevens Cholesterol.total/Ch olesterol in HDL [Mass ratio] 3.3 {ratio} Normal [facility] Comment on above: Performed By: #### L IVER, LDH, BMP #### [facility] [address] [place] [address] Dr. Esthela Stevens HDL NORMAL > or = 60 mg/dl - LOW CARDIOVASCULAR RISK <40 mg/dl - HIGH CARDIOVASCULAR RISK Normal [facility] Comment on above: Performed By: #### L IVER, LDH, BMP #### [facility] [address] [place] [address] Dr. Esthela Stevens LDL CALC NORMAL SEE BELOW Normal [facility] Comment on above: Result Comment: <100 mg/dl OPTIMAL 100 - 129 mg/dl NEAR OR ABOVE OPTIMAL 130 - 159 mg/dl BORDERLINE HIGH 160 - 189 mg/dl HIGH >190 mg/dl VERY HIGH Performed By: #### L IVER, LDH, BMP #### [facility] [address] [address] [address] Esthela Stevens Triglyceride [Mass/Vol] 126 mg/dL Normal <=150 [facility] Comment on above: Performed By: #### L IVER, LDH, BMP #### [facility] [address] [address] [address] Esthela Stevens VLDL CALC 25.2 mg/dL Normal [facility] Comment on above: Performed By: #### L IVER, LDH, BMP #### [facility] [address] [place] [address] Dr. Esthela Stevens PROF 14(COMP METB)on 023 Albumin [Mass/Vol] 4.2 g/dL Normal 3.4-5.0 [facility] Comment on above: Performed By: #### L IVER, LDH, BMP #### [facility] [address] [place] [address] Dr. Esthela Stevens Albumin/Globulin [Mass ratio] 1.1 {ratio} Normal [facility] Comment on above: Performed By: #### L IVER, LDH, BMP #### [facility] [address] [place] [address] Dr. Esthela Stevens ALP [Catalytic activity/Vol] 74 U/L Normal 46-116 [facility] Comment on above: Performed By: #### L IVER, LDH, BMP #### [facility] [address] [place] [address] Dr. Esthela Stevens ALT [Catalytic activity/Vol] 57 U/L Normal 14-59 [facility] Comment on above: Performed By: #### L IVER, LDH, BMP #### [facility] [address] [place] [address] Dr. Esthela Stevens Anion gap [Moles/Vol] 15.0 mmol/L Normal [facility] Comment on above: Performed By: #### L IVER, LDH, BMP #### [facility] [address] [place] [address] Dr. Esthela Stevens AST [Catalytic activity/Vol] 25 U/L Normal 15-37 [facility] Comment on above: Performed By: #### L IVER, LDH, BMP #### [facility] [address] [place] [address] Dr. Esthela Stevens Bilirubin [Mass/Vol] 0.4 mg/dL Normal 0.2-1.0 [facility] Comment on above: Performed By: #### L IVER, LDH, BMP #### [facility] [address] [place] [address] Dr. Esthela Stevens Calcium [Mass/Vol] 9.4 mg/dL Normal 8.5-10.1 [facility] Comment on above: Performed By: #### L IVER, LDH, BMP #### [facility] [address] [place] [address] Dr. Esthela Stevens Chloride [Moles/Vol] 102 mmol/L Normal 98-107 [facility] Comment on above: Performed By: #### L IVER, LDH, BMP #### [facility] [address] [place] [address] Dr. Esthela Stevens CO2 [Moles/Vol] 27.0 mmol/L Normal 21.0-32.[address] [facility] Comment on above: Performed By: #### L IVER, LDH, BMP #### [facility] [address] [place] [address] Dr. Esthela Stevens Creatinine [Mass/Vol] 0.61 mg/dL Normal 0.55-1.02 [facility] Comment on above: Performed By: #### L IVER, LDH, BMP #### [facility] [address] [place] [address] Dr. Esthela Stevens EGFR-AF GREENLANDIC >60 Normal >=60 [facility] Comment on above: Performed By: #### L IVER, LDH, BMP #### [facility] [address] [place] [address] Dr. Esthela Stevens EGFR-NON AF GREENLANDIC >60 Normal >=60 [facility] Comment on above: Performed By: #### L IVER, LDH, BMP #### [facility] [address] [address] [address] Esthela Stevens Globulin (S) [Mass/Vol] 3.7 g/dL Normal [facility] Comment on above: Performed By: #### L IVER, LDH, BMP #### [facility] [address] [place] [address] Dr. Esthela Stevens Glucose [Mass/Vol] 88 mg/dL Normal 74-106 [facility] Comment on above: Performed By: #### L IVER, LDH, BMP #### [facility] [address] [place] [address] Dr. Esthela Stevens Potassium [Moles/Vol] 4.0 mmol/L Normal 3.5-5.1 [facility] Comment on above: Performed By: #### L IVER, LDH, BMP #### [facility] [address] [place] [address] Dr. Esthela Stevens Protein [Mass/Vol] 7.9 g/dL Normal 6.4-8.2 [facility] Comment on above: Performed By: #### L IVER, LDH, BMP #### [facility] [address] [place] [address] Dr. Esthela Stevens Sodium [Moles/Vol] 140 mmol/L Normal 136-145 [facility] Comment on above: Performed By: #### L IVER, LDH, BMP #### [facility] [address] [place] [address] Dr. Esthela Stevens Urea nitrogen [Mass/Vol] 4.0 mg/dL Critically low 7.0-18.0 [facility] Comment on above: Performed By: #### L IVER, LDH, BMP #### [facility] [address] [place] [address] Dr. Esthela Stevens Urea nitrogen/Creatinine [Mass ratio] 6.6 mg/mg Normal [facility] Comment on above: Performed By: #### L IVER, LDH, BMP #### [facility] [address] [place] [address] Dr. Esthela Stevens TSHon 08-31-2022 TSH 1.348 uIU/mL Normal 0.358-3.740 [facility] Comment on above: Performed By: #### L IVER, LDH, BMP #### [facility] [address] [place] [address] Dr. Esthela Stevens URIC ACID SERUMon 08-31-2022 Urate [Mass/Vol] 4.4 mg/dL Normal 2.6-6.[address] [facility] Comment on above: Performed By: #### L IVER, LDH, BMP #### [facility] [address] [place] [address] Dr. Esthela Stevens VITAMIN D 25 OHon 08-31-2022 VIT D 25-OH 18.0 ng/mL Normal [facility] Comment on above: Performed By: #### L IVER, LDH, BMP #### [facility] [address] [place] [address] Dr. Esthela Stevens VIT D RANGES SEE BELOW Normal [facility] Comment on above: Result Comment: <20 ng/mL Vit D deficient 20 - <30 ng/mL Vit D insufficient 30 - 100 ng/mL Vit D sufficient >100 ng/mL Potential Toxicity Performed By: #### L IVER, LDH, BMP #### [facility] [address] [place] [address] Dr. Esthela Stevens LIVER PROFILEon 08-24-2022 Albumin [Mass/Vol] 3.9 g/dL Normal 3.4-5.0 [facility] Comment on above: Performed By: #### L IVER, LDH, BMP #### [facility] [address] [place] [address] Dr. Esthela Stevens Albumin/Globulin [Mass ratio] 1.0 {ratio} Normal [facility] Comment on above: Performed By: #### L IVER, LDH, BMP #### [facility] [address] [place] [address] Dr. Esthela Stevens ALP [Catalytic activity/Vol] 70 U/L Normal 46-116 [facility] Comment on above: Performed By: #### L IVER, LDH, BMP #### [facility] [address] [place] [address] Dr. Esthela Stevens ALT [Catalytic activity/Vol] 44 U/L Normal 14-59 [facility] Comment on above: Performed By: #### L IVER, LDH, BMP #### [facility] [address] [place] [address] Dr. Esthela Stevens AST [Catalytic activity/Vol] 22 U/L Normal 15-37 [facility] Comment on above: Performed By: #### L IVER, LDH, BMP #### [facility] [address] [place] [address] Dr. Esthela Stevens BILI, CONJUGATED 0.1 mg/dL Normal 0.0-0.[address] [facility] Comment on above: Performed By: #### L IVER, LDH, BMP #### [facility] [address] [place] [address] Dr. Esthela Stevens Bilirubin [Mass/Vol] 0.3 mg/dL Normal 0.2-1.0 [facility] Comment on above: Performed By: #### L IVER, LDH, BMP #### [facility] [address] [place] [address] Dr. Esthela Stevens Globulin (S) [Mass/Vol] 3.9 g/dL Normal [facility] Comment on above: Performed By: #### L IVER, LDH, BMP #### [facility] [address] [place] [address] Dr. Esthela Stevens Protein [Mass/Vol] 7.8 g/dL Normal 6.4-8.2 [facility] Comment on above: Performed By: #### L IVER, LDH, BMP #### [facility] [address] [place] [address] ABDOMEN/PELVIS WITH AND [...] or increased in size compared to prior. [employer] Refrigeration Technician 0.8 cm x 0.5 cm soft tissue [...] error, please notify the sender immediately at [phone] and permanently delete the original report and destroy any copies or printouts. Normal [facility] CREAT/GFRon 08-19-2022 Creatinine [Mass/Vol] 0.85 mg/dL 0.50 - 1.20 mg/dL [facility] GFR/1.73 sq M.predicted CKD-EPI (S/P/Bld) [Vol rate/Area] - PINF [facility] Comment on above: Reported eGFR is bas ed on the CKD-EPI 2020 equation using creatinine, age, and sex. Interpretation and review of laboratory results Normal [facility] Test performed at address of the patient encounter. [facility] NUC PET NEUROENDOCRINEon NUC PET NEUROENDOCRINE EXAM: [...] evidence of somatostatin receptor avid malignancy. 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 [facility] Radiology Study observation (narrative) [facility] PT Skull base to mid-thighOr dered By: Hawa Pichardo on 08-19-2022 [facility] Work Phone: CBC AUTO DIFFon 08-12-2022 BASO # 0.1 103/ul Normal 0.0-0.1 [facility] Comment on above: Performed By: #### L IVER, LDH, BMP #### [facility] [address] [address] [address] Esthela Stevens Basophils/100 WBC (Bld) 1.0 % Normal 0.2-2.0 [facility] Comment on above: Performed By: #### L IVER, LDH, BMP #### [facility] [address] [address] [address] Esthela Stevens EO # 0.1 103/ul Normal 0.0-0.7 [facility] Comment on above: Performed By: #### L IVER, LDH, BMP #### [facility] [address] [address] [address] Esthela Stevens Eosinophils/100 WBC (Bld) 1.6 % Normal 0.9-7.0 [facility] Comment on above: Performed By: #### L IVER, LDH, BMP #### [facility] [address] [address] [address] Esthela Stevens Erythrocyte distribution width (RBC) [Ratio] 12.5 % Normal 11.0-15.0 [facility] Comment on above: Performed By: #### L IVER, LDH, BMP #### [facility] [address] [address] [address] Esthela Stevens Hematocrit (Bld) [Volume fraction] 40.1 % Normal 36.0-48.0 [facility] Comment on above: Performed By: #### L IVER, LDH, BMP #### [facility] [address] [place] [address] Dr. Esthela Stevens Hemoglobin (Bld) [Mass/Vol] 12.3 g/dL Normal 12.0-16.0 [facility] Comment on above: Performed By: #### L IVER, LDH, BMP #### [facility] [address] [place] [address] Dr. Esthela Stevens IG # 0.01 10e3/ul Normal 0.00-0.03 [facility] Comment on above: Performed By: #### L IVER, LDH, BMP #### [facility] [address] [place] [address] Dr. Esthela Stevens IG % 0.2 % Normal 0.0-0.5 [facility] Comment on above: Performed By: #### L IVER, LDH, BMP #### [facility] [address] [place] [address] Dr. Esthela Stevens LYMPH # 1.8 103/ul Normal 1.2-3.8 [facility] Comment on above: Performed By: #### L IVER, LDH, BMP #### [facility] [address] [place] [address] Dr. Esthela Stevens Lymphocytes/100 WBC (Bld) 28.0 % Normal 20.5-60.0 [facility] Comment on above: Performed By: #### L IVER, LDH, BMP #### [facility] [address] [place] [address] Dr. Esthela Stevens MANUAL DIFF REQ NO Normal [facility] Comment on above: Performed By: #### L IVER, LDH, BMP #### [facility] [address] [place] [address] Dr. Esthela Stevens MCH (RBC) [Entitic mass] 26.8 pg Normal 26.7-34.0 [facility] Comment on above: Performed By: #### L IVER, LDH, BMP #### [facility] [address] [place] [address] Dr. Esthela Stevens MCHC (RBC) [Mass/Vol] 30.7 g/dL Normal 29.9-35.2 [facility] Comment on above: Performed By: #### L IVER, LDH, BMP #### [facility] [address] [address] [address] Esthela Stevens MCV (RBC) [Entitic vol] 87.4 fL Normal 81.0-99.0 [facility] Comment on above: Performed By: #### L IVER, LDH, BMP #### [facility] [address] [address] [address] Esthela Stevens MONO # 0.6 103/ul Normal 0.3-0.8 [facility] Comment on above: Performed By: #### L IVER, LDH, BMP #### [facility] [address] [place] [address] Dr. Esthela Stevens Monocytes/100 WBC (Bld) 9.4 % Normal 1.7-12.0 [facility] Comment on above: Performed By: #### L IVER, LDH, BMP #### [facility] [address] [address] [address] Esthela Stevens NEUT # 3.8 103/ul Normal 1.4-6.5 [facility] Comment on above: Performed By: #### L IVER, LDH, BMP #### [facility] [address] [address] [address] Esthela Stevens Neutrophils/100 WBC (Bld) 59.8 % Normal 43.0-75.0 [facility] Comment on above: Performed By: #### L IVER, LDH, BMP #### [facility] [address] [address] [address] Esthela Stevens Platelet mean volume (Bld) [Entitic vol] 9.6 fL Normal 9.5-13.5 [facility] Comment on above: Performed By: #### L IVER, LDH, BMP #### [facility] [address] [address] [address] Esthela Stevens PLT 341 103/ul Normal 150-450 [facility] Comment on above: Performed By: #### L IVER, LDH, BMP #### [facility] [address] [place], [place] [address] Dr. Esthela Stevens RBC 4.59 106/ul Normal 4.20-5.40 [facility] Comment on above: Performed By: #### L IVER, LDH, BMP #### [facility] [address] [place], [place] [address] Dr. Esthela Stevens WBC 6.3 103/ul Normal 4.0-11.0 [facility] Comment on above: Performed By: #### L IVER, LDH, BMP #### [facility] [address] [place], [place] [address] ABD/PELV W CONon [...] TIMMY SHAY Date: 2022-08-12 17:04 Normal [facility] CULTURE URINEon 08-12-2022 CULTURE URINE Culture Observations: MODERATE GROWTH OF MIXED GENITAL SUNITA. NO POTENTIAL PATHOGENS SEEN. Normal [facility] Comment on above: Performed By: #### L IVER, LDH, BMP #### [facility] [address] [place] [address] Dr. Esthela Stevens ER URINE PROFILEon 3 Bilirubin Ql (U) Negative Normal NEGATIVE [facility] Comment on above: Performed By: #### P REG #### [facility] [address] [place] [address] Dr. Esthela Stevens Clarity (U) CLEAR Normal CLEAR [facility] Comment on above: Performed By: #### P REG #### [facility] [address] [place] [address] Dr. Esthela Stevens Color (U) LT. YELLOW Normal YELLOW [facility] Comment on above: Performed By: #### P REG #### [facility] [address] [place] [address] Dr. Esthela ARGUELLES A micrscopic examination will be performed if indicated. Normal [facility] Comment on above: Performed By: #### P REG #### [facility] [address] [place] [address] Dr. Esthela Stevens Glucose Ql (U) Negative Normal NEGATIVE [facility] Comment on above: Performed By: #### P REG #### [facility] [address] [place] [address] Dr. Esthela Stevens Hemoglobin Ql (U) Negative Normal NEGATIVE [facility] Comment on above: Performed By: #### P REG #### [facility] [address] [place] [address] Dr. Esthela Stevens Ketones Ql (U) Negative Normal NEGATIVE [facility] Comment on above: Performed By: #### P REG #### [facility] [address] [address] [address] Esthela Stevens LEUKOCYTES SMALL Abnormal NEGATIVE [facility] Comment on above: Performed By: #### P REG #### [facility] [address] [place] [address] Dr. Esthela Stevens Nitrite Ql (U) Negative Normal NEGATIVE [facility] Comment on above: Performed By: #### P REG #### [facility] [address] [place] [address] Dr. Esthela Stevens pH (U) 7.0 [pH] Normal 5-9 [facility] Comment on above: Performed By: #### P REG #### [facility] [address] [place] [address] Dr. Esthela Stevens SPEC GRAVITY 1.020 Normal 1.005-<=1.025 [facility] Comment on above: Performed By: #### P REG #### [facility] [address] [place] [address] Dr. Esthela Stevens UA PROTEIN Negative Normal NEGATIVE/ TRACE [facility] Comment on above: Performed By: #### P REG #### [facility] [address] [place] [address] Dr. Esthela Stevens UR MICRO IND INDICATED Normal [facility] Comment on above: Performed By: #### P REG #### [facility] [address] [place] [address] Dr. Esthela Stevens Urobilinogen Qn (U) 0.2 {Emeka'U}/dL Normal 0.2 - 1. 0 [facility] Comment on above: Performed By: #### P REG #### [facility] [address] [place] [address] Dr. Esthela Stevens LIPASEon 08-12-2022 Lipase [Catalytic activity/Vol] 75.0 U/L Normal 73.0-393.0 [facility] Comment on above: Performed By: #### P REG #### [facility] [address] [place] [address] Dr. Esthela Stevens URon 08-12-2022 , QUAL Negative Normal NEGATIVE [facility] Comment on above: Performed By: #### P REG #### [facility] [address] [place] [address] Dr. Esthela Stevens PROF 14(COMP METB)on 023 Albumin [Mass/Vol] 4.0 g/dL Normal 3.4-5.0 [facility] Comment on above: Performed By: #### P REG #### [facility] [address] [place] [address] Dr. Esthela Stevens Albumin/Globulin [Mass ratio] 1.1 {ratio} Normal [facility] Comment on above: Performed By: #### P REG #### [facility] [address] [place] [address] Dr. Esthela Stevens ALP [Catalytic activity/Vol] 73 U/L Normal 46-116 [facility] Comment on above: Performed By: #### P REG #### [facility] [address] [place] [address] Dr. Esthela Stevens ALT [Catalytic activity/Vol] 82 U/L Critically high 14-59 [facility] Comment on above: Performed By: #### P REG #### [facility] [address] [place] [address] Dr. Esthela Stevens Anion gap [Moles/Vol] 12.0 mmol/L Normal [facility] Comment on above: Performed By: #### P REG #### [facility] [address] [place] [address] Dr. Esthela Stevens AST [Catalytic activity/Vol] 33 U/L Normal 15-37 [facility] Comment on above: Performed By: #### P REG #### [facility] [address] [address] [address] Esthela Stevens Bilirubin [Mass/Vol] 0.2 mg/dL Normal 0.2-1.0 [facility] Comment on above: Performed By: #### P REG #### [facility] [address] [place] [address] Dr. Esthela Stevens Calcium [Mass/Vol] 9.4 mg/dL Normal 8.5-10.1 [facility] Comment on above: Performed By: #### P REG #### [facility] [address] [place] [address] Dr. Esthela Stevens Chloride [Moles/Vol] 102 mmol/L Normal 98-107 [facility] Comment on above: Performed By: #### P REG #### [facility] [address] [place] [address] Dr. Esthela Stevens CO2 [Moles/Vol] 27.8 mmol/L Normal 21.0-32.[address] [facility] Comment on above: Performed By: #### P REG #### [facility] [address] [place] [address] Dr. Esthela Stevens Creatinine [Mass/Vol] 0.69 mg/dL Normal 0.55-1.02 [facility] Comment on above: Performed By: #### P REG #### [facility] [address] [place] [address] Dr. Esthela Stevens EGFR-AF GREENLANDIC >60 Normal >=60 [facility] Comment on above: Performed By: #### P REG #### [facility] [address] [place] [address] Dr. Esthela Stevens EGFR-NON AF GREENLANDIC >60 Normal >=60 [facility] Comment on above: Performed By: #### P REG #### [facility] [address] [place] [address] Dr. Esthela Stevens Globulin (S) [Mass/Vol] 3.5 g/dL Normal [facility] Comment on above: Performed By: #### P REG #### [facility] [address] [place] [address] Dr. Esthela Stevens Glucose [Mass/Vol] 109 mg/dL Critically high 74-106 [facility] Comment on above: Performed By: #### P REG #### [facility] [address] [place] [address] Dr. Esthela Stevens Potassium [Moles/Vol] 3.8 mmol/L Normal 3.5-5.1 [facility] Comment on above: Performed By: #### P REG #### [facility] [address] [place] [address] Dr. Esthela Stevens Protein [Mass/Vol] 7.5 g/dL Normal 6.4-8.2 [facility] Comment on above: Performed By: #### P REG #### [facility] [address] [place] [address] Dr. Esthela Stevens Sodium [Moles/Vol] 138 mmol/L Normal 136-145 [facility] Comment on above: Performed By: #### P REG #### [facility] [address] [place] [address] Dr. Esthela Stevens Urea nitrogen [Mass/Vol] 6.0 mg/dL Critically low 7.0-18.0 [facility] Comment on above: Performed By: #### P REG #### [facility] [address] [place] [address] Dr. Esthela Stevens Urea nitrogen/Creatinine [Mass ratio] 8.7 mg/mg Normal [facility] Comment on above: Performed By: #### P REG #### [facility] [address] [place] [address] Dr. Esthela Stevens URINE MICROSCOPIC ONLYon BACTERIA SMALL Abnormal NONE SEEN [facility] Comment on above: Performed By: #### P REG #### [facility] [address] [place] [address] Dr. Esthela Stevens Bacteria identified Cx Nom (U) INDICATED Normal [facility] Comment on above: Performed By: #### P REG #### [facility] [address] [place] [address] Dr. Esthela Stevens CAST NONE SEEN Normal NONE SEEN [facility] Comment on above: Performed By: #### P REG #### [facility] [address] [place] [address] Dr. Esthela Stevens Crystals LM Nom (Urine sed) NONE SEEN Normal NONE SEEN [facility] Comment on above: Performed By: #### P REG #### [facility] [address] [place] [address] Dr. Esthela Stevens Epithelial cells LM Ql (Urine sed) MODERATE Abnormal NONE SEEN /RARE [facility] Comment on above: Performed By: #### P REG #### [facility] [address] [place] [address] Dr. Esthela Stevens MUCOUS NONE SEEN Normal NONE SEEN [facility] Comment on above: Performed By: #### P REG #### [facility] [address] [place] [address] Dr. Esthela Stevens RBC NONE SEEN Abnormal 0-2 [facility] Comment on above: Performed By: #### P REG #### [facility] [address] [place] [address] Dr. Esthela Stevens WBC 2-5 Abnormal NONE SEEN [facility] Comment on above: Performed By: #### P REG #### [facility] [address] [place] [address] Dr. Esthela Stevens PAP ACOG PANEL 2: 21 to 31on 08-11-2022 . . Normal [facility] Comment on above: Performed By: #### [id number] #### [facility] [address] [place] [address] Dr. Esthela Stevens Age Gdln ACOG Testing - Normal [facility] Comment on above: Performed By: #### [id number] #### [facility] [address] [place] [address] Dr. Esthela Stevens DIAGNOSIS: Comment Abnormal [facility] Comment on above: Result Comment: EPIT HELIAL CELL ABNORMALITY. ATYPICAL SQUAMOUS CELLS OF UNDETERMINED SIGNIFICANCE (ASC-US). Performed By: #### [id number] #### [facility] [address] [place] [address] Dr. Esthela Stevens Electronically signed by: Comment Normal [facility] Comment on above: Result Comment: Zoe Moncada MD, Pathologist Performed By: #### [id number] #### [facility] [address] [place] [address] Dr. Esthela Stevens HPV Aptima Negative Normal Negative [facility] Comment on above: Result Comment: This nucleic acid amplification test detects fourteen high-risk HPV types (16,18,31,33,35,39,45,51,52,56,58,59,66,68) without differentiation. Performed By: #### [id number] #### [facility] [address] [place] [address] Dr. Esthela Stevens Methodology: Comment Normal [facility] Comment on above: Result Comment: This liquid based ThinPrep(R) pap test was screened with the use of an image guided system. Performed By: #### [id number] #### [facility] [address] [place] [address] Dr. Esthela Stevens Note: Comment Normal [facility] Comment on above: Result Comment: The Pap smear is a screening test designed to aid in the detection of premalignant and malignant conditions of the uterine cervix. It is not a diagnostic procedure and should not be used as the sole means of detecting cervical cancer. Both false-positive and false-negative reports do occur. . Performed By: #### [id number] #### [facility] [address] [place] [address] Dr. Esthela Stevens Pathologist Provided ICD10 Comment Normal [facility] Comment on above: Result Comment: R87. [id number] Performed By: #### [id number] #### [facility] [address] [place] [address] Dr. Esthela Stevens Performed by: Comment Normal [facility] Comment on above: Result Comment: Nevin Ardon Pattern Keeper (ASCP) Performed By: #### [id number] #### [facility] [address] [place] [address] Dr. Esthela Stevens Reflex Criteria: Comment Normal [facility] Comment on above: Result Comment: See below for HPV testing results. . Performed By: #### [id number] #### [facility] [address] [place] [address] Dr. Esthela Stevens Specimen adequacy: Comment Normal [facility] Comment on above: Result Comment: Sati sfactory for evaluation. Endocervical and/or squamous metaplastic cells (endocervical component) are present. Performed By: #### 4 [id number] #### [facility] [address] [address] [address] Esthela Stevens CALCITONINon 07-08-2022 Calcitonin <1.89 Normal <=9.53 [facility] Comment on above: Result Comment: This test was performed on the [employer] Immunoassay platform by [employer] which is a two-site sandwich chemiluminescent immunoassay. It is important to note that assays using different manufacturers and/or methods may not be comparable. Performed By: #### Y CHGRA #### [facility] (DEFAULT) [address] [place] [address] 15357 CBC AND ELECTRONIC DIFFon Basophils (Bld) [#/Vol] 0.04 10*3/uL Normal 0.00-0.15 [facility] Comment on above: Performed By: #### C A, IPB, CHM7, MGO #### [facility] (DEFAULT) [address] [place] [address] 24196 Basophils/100 WBC (Bld) 0.7 % Normal [facility] Comment on above: Performed By: #### C A, IPB, CHM7, MGO #### [facility] (DEFAULT) [address] [place] [address] 82730 DIFF STATUS Electronic Differential Normal [facility] Comment on above: Performed By: #### C A, IPB, CHM7, MGO #### [facility] (DEFAULT) [address] [place] [address] 20738 Eosinophils (Bld) [#/Vol] 0.14 10*3/uL Normal 0.00-0.42 [facility] Comment on above: Performed By: #### C A, IPB, CHM7, MGO #### [facility] (DEFAULT) [address] [place] [address] 49304 Eosinophils/100 WBC (Bld) 2.4 % Normal [facility] Comment on above: Performed By: #### C Danielle, IPB, CHM7, MGO #### [facility] (DEFAULT) [address] [place] [address] 71019 Hematocrit (Bld) [Volume fraction] 38.1 % Normal 34.9-44.3 [facility] Comment on above: Performed By: #### C A, IPB, CHM7, MGO #### [facility] (DEFAULT) [address] [place] [address] 21225 Hemoglobin (Bld) [Mass/Vol] 12.2 g/dL Normal 11.4-15.2 [facility] Comment on above: Performed By: #### Dayday A, IPB, CHM7, MGO #### [facility] (DEFAULT) [address] [place] [address] 22035 Immature Grans % 0.2 % Normal [facility] Comment on above: Performed By: #### Dayday A, IPB, CHM7, MGO #### [facility] (DEFAULT) [address] [place] [address] 67348 Immature Grans Absolute < Normal <=0.08 [facility] Comment on above: Performed By: #### C A, IPB, CHM7, MGO #### [facility] (DEFAULT) [address] [place] [address] 46049 Lymphocytes (Bld) [#/Vol] 2.14 10*3/uL Normal 1.16-3.51 [facility] Comment on above: Performed By: #### C A, IPB, CHM7, MGO #### [facility] (DEFAULT) [address] [address] Lymphocytes/100 WBC (Bld) 36.8 % Normal [facility] Comment on above: Performed By: #### C A, IPB, CHM7, MGO #### [facility] (DEFAULT) [address] [place] [address] 10280 MCV (RBC) [Entitic vol] 83.2 fL Normal 79.6-97.7 [facility] Comment on above: Performed By: #### RODRIGO Rangel, CHM7, MGO #### [facility] (DEFAULT) [address] [place] [address] 17930 Mean Cell Hgb 26.6 pg Normal 25.9-33.9 [facility] Comment on above: Performed By: #### Dayday Santos, IPB, CHM7, MGO #### [facility] (DEFAULT) [address] [place] [address] 90745 Mean Cell Hgb Conc 32.0 g/dL Normal 31.4-35.9 [facility] Comment on above: Performed By: #### Dayday Santos IPB, CHM7, MGO #### [facility] (DEFAULT) [address] [place] [address] 78848 Monocytes (Bld) [#/Vol] 0.49 10*3/uL Normal 0.22-0.87 [facility] Comment on above: Performed By: #### SHANEKA RangelB, CHM7, MGO #### [facility] (DEFAULT) [address] [place] [address] 73249 Monocytes/100 WBC (Bld) 8.4 % Normal [facility] Comment on above: Performed By: #### Dayday Santos, IPB, CHM7, MGO #### [facility] (DEFAULT) [address] [place] [address] 85942 Nucleated RBC 0.0 /100 WBC Normal <=0.2 [facility] Comment on above: Performed By: #### Dayday Santos, IPB, CHM7, MGO #### [facility] (DEFAULT) [address] [place] [address] 77913 Platelet mean volume (Bld) [Entitic vol] 9.0 fL Normal 8.5-12.2 [facility] Comment on above: Performed By: #### C A, IPB, CHM7, MGO #### [facility] (DEFAULT) [address] [place] [address] 26857 Platelets (Bld) [#/Vol] 273 10*3/uL Normal 150-393 [facility] Comment on above: Performed By: #### C A, IPB, CHM7, MGO #### [facility] (DEFAULT) [address] [place] [address] 72600 RBC (Bld) [#/Vol] 4.58 10*6/uL Normal 3.91-5.04 [facility] Comment on above: Performed By: #### C A, IPB, CHM7, MGO #### [facility] (DEFAULT) [address] [place] [address] 53332 RBC Distribution 13.0 % Normal 10.8-14.9 [facility] Comment on above: Performed By: #### Dayday A, IPB, CHM7, MGO #### [facility] (DEFAULT) [address] [place] [address] 26403 Segs + Bands Auto 51.5 % Normal [facility] Comment on above: Performed By: #### C A, IPB, CHM7, MGO #### [facility] (DEFAULT) [address] [place] [address] 64408 Segs + Bands,Absolute Auto 2.99 K/uL Normal 1.64-7.28 [facility] Comment on above: Performed By: #### C A, IPB, CHM7, MGO #### [facility] (DEFAULT) [address] [place] [address] 19516 WBC (Bld) [#/Vol] 5.81 10*3/uL Normal 3.99-11.19 [facility] Comment on above: Performed By: #### C A, IPB, CHM7, MGO #### [facility] (DEFAULT) [address] [place] [address] 00300 CHROMOGRANIN Aon 07-08-2022 Chromogranin A 25 ng/mL Normal <93 [facility] Comment on above: Result Comment: ADDITIONAL INFORMATION This test was developed and its performance characteristics determined by [facility] in a manner consistent with CLIA requirements. [...] a homogeneous time-resolved immunofluorescent assay manufactured by [employer] and performed on the [employer] Kryptor Compact Plus. Values obtained with different assay methods or kits may be different and cannot be used interchangeably. Test results cannot be interpreted as absolute evidence for the presence or absence of malignant disease. Test Performed by: [id number] [place] [address] Laundry Folder: Ed Russo M.D. Ph.D.; CLIA# [id number] Performed By: #### C Danielle, IPB, CHM7, MGO #### [facility] (DEFAULT) [address] [place] [address] COMPREHENSIVE METABOLIC PANE Shamir 07-08-2022 Albumin [Mass/Vol] 4.7 g/dL Normal 3.5-5.0 [facility] Comment on above: Performed By: #### C A, IPB, CHM7, MGO, HFP #### [facility] (DEFAULT) [address] [address] ALP [Catalytic activity/Vol] 67 U/L Normal 32-126 [facility] Comment on above: Performed By: #### C A, IPB, CHM7, MGO, HFP #### [facility] (DEFAULT) [address] [place] [address] 19689 ALT [Catalytic activity/Vol] 88 U/L High 9-48 [facility] Comment on above: Performed By: #### C A, IPB, CHM7, MGO, HFP #### [facility] (DEFAULT) [address] [place] [address] 21080 Anion gap [Moles/Vol] 12 mmol/L Normal 7-17 [facility] Comment on above: Performed By: #### C A, IPB, CHM7, MGO, HFP #### [facility] (DEFAULT) [address] [place] [address] 46443 AST [Catalytic activity/Vol] 42 U/L High 10-39 [facility] Comment on above: Performed By: #### C A, IPB, CHM7, MGO, HFP #### [facility] (DEFAULT) [address] [place] [address] 48542 Bilirubin [Mass/Vol] 0.5 mg/dL Normal <1.5 [facility] Comment on above: Performed By: #### C A, IPB, CHM7, MGO, HFP #### [facility] (DEFAULT) [address] [place] [address] 62338 Calcium [Mass/Vol] 9.8 mg/dL Normal 8.6-10.5 [facility] Comment on above: Performed By: #### C A, IPB, CHM7, MGO, HFP #### [facility] (DEFAULT) [address] [place] [address] 92910 Chloride [Moles/Vol] 103 mmol/L Normal 98-108 [facility] Comment on above: Performed By: #### C A, IPB, CHM7, MGO, HFP #### [facility] (DEFAULT) [address] [place] [address] 23606 CO2 [Moles/Vol] 28 mmol/L Normal 21-31 [facility] Comment on above: Performed By: #### C A, IPB, CHM7, MGO, HFP #### [facility] (DEFAULT) [address] [place] [address] 37391 Creatinine [Mass/Vol] 0.69 mg/dL Normal 0.50-1.20 [facility] Comment on above: Performed By: #### C A, IPB, CHM7, MGO, HFP #### [facility] (DEFAULT) [address] [place] [address] 51711 eGFR, CKD-EPI, Female > Normal >=60 [facility] Comment on above: Result Comment: Repo rted eGFR is based on the CKD-EPI 2020 equation using creatinine, age, and sex. Performed By: #### C A, IPB, CHM7, MGO, HFP #### [facility] (DEFAULT) [address] [place] [address] 62666 Glucose [Mass/Vol] 93 mg/dL Normal 70-99 [facility] Comment on above: Performed By: #### C A, IPB, CHM7, MGO, HFP #### [facility] (DEFAULT) [address] [place] [address] 20843 Osmolality [Osmolality] 289 mosm/kg Normal 278-305 [facility] Comment on above: Performed By: #### C A, IPB, CHM7, MGO, HFP #### [facility] (DEFAULT) [address] [place] [address] 79123 Potassium [Moles/Vol] 4.2 mmol/L Normal 3.5-5.0 [facility] Comment on above: Performed By: #### C A, IPB, CHM7, MGO, HFP #### [facility] (DEFAULT) [address] [place] [address] 54511 Protein [Mass/Vol] 7.4 g/dL Normal 6.4-8.3 [facility] Comment on above: Performed By: #### C A, IPB, CHM7, MGO, HFP #### [facility] (DEFAULT) [address] [place] [address] 64261 Sodium [Moles/Vol] 139 mmol/L Normal 135-145 [facility] Comment on above: Performed By: #### C A, IPB, CHM7, MGO, HFP #### [facility] (DEFAULT) [address] [place] [address] 49677 Urea nitrogen [Mass/Vol] 8 mg/dL Normal 7-25 [facility] Comment on above: Performed By: #### C A, IPB, CHM7, MGO, HFP #### [facility] (DEFAULT) [address] [place] [address] 51920 Urea nitrogen/Creatinine [Mass ratio] 12 mg/mg Normal [facility] Comment on above: Performed By: #### C A, IPB, CHM7, MGO, HFP #### [facility] (DEFAULT) [address] [place] [address] 48952 GASTRIN - NON-STIMULATEDon 09-08-2021 Gastrin 21 pg/mL Normal [facility] Comment on above: Result Comment: REFERENCE VALUE <100 Reference ranges valid for >= 8 hour fast. Test Performed by: [place] [address] Laundry Folder: Ed Russo M.D. Ph.D.; CLIA# [id number] Performed By: #### C Danielle, IPB, CHM7, MGO #### [facility] (DEFAULT) [address] [place] [address] 87510 LACTATE DEHYDROGENASEon 06-19 LD Total 133 U/L Normal 100-190 [facility] Comment on above: Performed By: #### C A, IPB, CHM7, MGO, HFP #### [facility] (DEFAULT) [address] [place] [address] 97953 PANCREATIC POLYPEPTIDEon Pancreatic Polypeptide 94 pg/mL Normal <228 [facility] Comment on above: Result Comment: ADDITIONAL INFORMATION This test was developed and its performance characteristics determined by [facility] in a manner consistent with CLIA requirements. This test has not been cleared or approved by the [place]. Food and Drug Administration. Test Performed by: [facility] [address] [place] [address] Laundry Folder: Ed Russo M.D. Ph.D.; CLIA# [id number] Performed By: #### C Danielle, RODRIGO, CHM7, MGO #### [facility] (DEFAULT) [address] [place] [address] GI PANEL (PCR)on 06-03-2022 Adenovirus F 40/41 Not detected Normal NOT DETECTED [facility] Comment on above: Performed By: #### P REG #### [facility] [address] [place] [address] Dr. Esthela Stevens Astrovirus Not detected Normal NOT DETECTED [facility] Comment on above: Performed By: #### P REG #### [facility] [address] [place] [address] Dr. Esthela Anderson Diff toxin A/B Detected Critically abnormal NOT DETECTED [facility] Comment on above: Performed By: #### P REG #### [facility] [address] [address] [address] Esthela Stevens Campylobacter Not detected Normal NOT DETECTED [facility] Comment on above: Performed By: #### P REG #### [facility] [address] [address] [address] Esthela Stevens Cryptosporidium Not detected Normal NOT DETECTED [facility] Comment on above: Performed By: #### P REG #### [facility] [address] [address] [address] Esthela Stevens Cyclos. Cayetanensis Not detected Normal NOT DETECTED [facility] Comment on above: Performed By: #### P REG #### [facility] [address] [place] [address] Dr. Esthela Stevens E. Coli O157 Not Applicable Normal Not Applicable [facility] Comment on above: Performed By: #### P REG #### [facility] [address] [place] [address] Dr. Esthela Stevens E. histolytica Not detected Normal NOT DETECTED [facility] Comment on above: Performed By: #### P REG #### [facility] [address] [place] [address] Dr. Esthela Stevens EAEC Not detected Normal NOT DETECTED [facility] Comment on above: Performed By: #### P REG #### [facility] [address] [place] [address] Dr. Esthela Stevens EIEC Not detected Normal NOT DETECTED [facility] Comment on above: Performed By: #### P REG #### [facility] [address] [place] [address] Dr. Esthela Stevens EPEC Not detected Normal NOT DETECTED [facility] Comment on above: Performed By: #### P REG #### [facility] [address] [place] [address] Dr. Esthela Stevens ETEC Not detected Normal NOT DETECTED [facility] Comment on above: Performed By: #### P REG #### [facility] [address] [place] [address] Dr. Esthela Stevens G. Lamblia Not detected Normal NOT DETECTED [facility] Comment on above: Performed By: #### P REG #### [facility] [address] [place] [address] Dr. Esthela MADISONANEL CONTROLS PASSED Normal [facility] Comment on above: Performed By: #### P REG #### [facility] [address] [place] [address] Dr. Esthela MERCADO JON HEADER GI PANEL BACTERIA Normal [facility] Comment on above: Performed By: #### P REG #### [facility] [address] [place] [address] Dr. Esthela MERCADOHD ECOLI GI PANEL DIARRHEAGENIC E.COLI / SHIGELLA Normal [facility] Comment on above: Performed By: #### P REG #### [facility] [address] [address] [address] Esthela LARA INFO SEE BELOW Normal [facility] Comment on above: Result Comment: EAEC - Enteroaggregative E. Coli EPEC- Enteropathogenic E. Coli ETEC- Enterotoxigenic E. Coli lt/st STEC- Shigella-like toxin-producing E. Coli stx1/stx2 EIEC- Shigella/Enteroinvasive E. Coli Performed By: #### P REG #### [facility] [address] [address] [address] Esthela LARA PARASITES GI PANEL PARASITES Normal [facility] Comment on above: Performed By: #### P REG #### [facility] [address] [address] [address] Esthela LARA VIRUS GI PANEL VIRUSES Normal [facility] Comment on above: Performed By: #### P REG #### [facility] [address] [address] [address] Esthela Stevens Norovirus GI/GII Not detected Normal NOT DETECTED [facility] Comment on above: Performed By: #### P REG #### [facility] [address] [address] [address] Esthela Stevens P. Shigelloides Not detected Normal NOT DETECTED [facility] Comment on above: Performed By: #### P REG #### [facility] [address] [address] [address] Esthela Stevens Rotavirus A Not detected Normal NOT DETECTED [facility] Comment on above: Performed By: #### P REG #### [facility] [address] [address] [address] Esthela Stevens Salmonella Not detected Normal NOT DETECTED [facility] Comment on above: Performed By: #### P REG #### [facility] [address] [address] [address] Esthela Stevens Sapovirus Not detected Normal NOT DETECTED [facility] Comment on above: Performed By: #### P REG #### [facility] [address] [place] [address] Dr. Esthela Stevens STEC Not detected Normal NOT DETECTED [facility] Comment on above: Performed By: #### P REG #### [facility] [address] [place] [address] Dr. Esthela Stevens Vibrio Not detected Normal NOT DETECTED [facility] Comment on above: Performed By: #### P REG #### [facility] [address] [place] [address] Dr. Esthela Stevens Vibrio Cholera Not detected Normal NOT DETECTED [facility] Comment on above: Performed By: #### P REG #### [facility] [address] [place] [address] Dr. Esthela Stevens Y. Enterocolitica Not detected Normal NOT DETECTED [facility] Comment on above: Performed By: #### P REG #### [facility] [address] [place] [address] Dr. Esthela Stevens CBC AUTO DIFFon 06-02-2022 BASO # 0.1 103/ul Normal 0.0-0.1 [facility] Comment on above: Performed By: #### L IVER, LDH, BMP #### [facility] [address] [place] [address] Dr. Esthela Stevens Basophils/100 WBC (Bld) 0.6 % Normal 0.2-2.0 [facility] Comment on above: Performed By: #### L IVER, LDH, BMP #### [facility] [address] [place] [address] Dr. Esthela Stevens EO # 0.5 103/ul Normal 0.0-0.7 [facility] Comment on above: Performed By: #### L IVER, LDH, BMP #### [facility] [address] [place] [address] Dr. Esthela Stevens Eosinophils/100 WBC (Bld) 4.3 % Normal 0.9-7.0 [facility] Comment on above: Performed By: #### L IVER, LDH, BMP #### [facility] [address] [place] [address] Dr. Esthela Stevens Erythrocyte distribution width (RBC) [Ratio] 13.0 % Normal 11.0-15.0 [facility] Comment on above: Performed By: #### L IVER, LDH, BMP #### [facility] [address] [place] [address] Dr. Esthela Stevens Hematocrit (Bld) [Volume fraction] 33.6 % Critically low 36.0-48.0 [facility] Comment on above: Performed By: #### L IVER, LDH, BMP #### [facility] [address] [place] [address] Dr. Esthela Stevens Hemoglobin (Bld) [Mass/Vol] 10.9 g/dL Critically low 12.0-16.0 [facility] Comment on above: Performed By: #### L IVER, LDH, BMP #### [facility] [address] [place] [address] Dr. Esthela Stevens IG # 0.05 10e3/ul Critically high 0.00-0.03 [facility] Comment on above: Performed By: #### L IVER, LDH, BMP #### [facility] [address] [place] [address] Dr. Esthela Stevens IG % 0.5 % Normal 0.0-0.5 [facility] Comment on above: Performed By: #### L IVER, LDH, BMP #### [facility] [address] [place] [address] Dr. Esthela Stevens LYMPH # 2.4 103/ul Normal 1.2-3.8 [facility] Comment on above: Performed By: #### L IVER, LDH, BMP #### [facility] [address] [place] [address] Dr. Esthela Stevens Lymphocytes/100 WBC (Bld) 22.4 % Normal 20.5-60.0 [facility] Comment on above: Performed By: #### L IVER, LDH, BMP #### [facility] [address] [place] [address] Dr. Esthela Stevens MANUAL DIFF REQ NO Normal [facility] Comment on above: Performed By: #### L IVER, LDH, BMP #### [facility] [address] [place] [address] Dr. Esthela Stevens MCH (RBC) [Entitic mass] 26.9 pg Normal 26.7-34.0 [facility] Comment on above: Performed By: #### L IVER, LDH, BMP #### [facility] [address] [place] [address] Dr. Esthela Stevens MCHC (RBC) [Mass/Vol] 32.4 g/dL Normal 29.9-35.2 [facility] Comment on above: Performed By: #### L IVER, LDH, BMP #### [facility] [address] [place] [address] Dr. Esthela Stevens MCV (RBC) [Entitic vol] 83.0 fL Normal 81.0-99.0 [facility] Comment on above: Performed By: #### L IVER, LDH, BMP #### [facility] [address] [place] [address] Dr. Esthela Stevens MONO # 0.8 103/ul Normal 0.3-0.8 [facility] Comment on above: Performed By: #### L IVER, LDH, BMP #### [facility] [address] [place] [address] Dr. Esthela Stevens Monocytes/100 WBC (Bld) 7.1 % Normal 1.7-12.0 [facility] Comment on above: Performed By: #### L IVER, LDH, BMP #### [facility] [address] [place] [address] Dr. Esthela Stevens NEUT # 7.0 103/ul Critically high 1.4-6.5 [facility] Comment on above: Performed By: #### L IVER, LDH, BMP #### [facility] [address] [place] [address] Dr. Esthela Stevens Neutrophils/100 WBC (Bld) 65.1 % Normal 43.0-75.0 [facility] Comment on above: Performed By: #### L IVER, LDH, BMP #### [facility] [address] [place] [address] Dr. Esthela Stevens Platelet mean volume (Bld) [Entitic vol] 8.9 fL Critically low 9.5-13.5 [facility] Comment on above: Performed By: #### L IVER, LDH, BMP #### [facility] [address] [address] [address] Esthela Stevens PLT 519 103/ul Critically high 150-450 [facility] Comment on above: Performed By: #### L IVER, LDH, BMP #### [facility] [address] [address] [address] Esthela Stevens RBC 4.05 106/ul Critically low 4.20-5.40 [facility] Comment on above: Performed By: #### L IVER, LDH, BMP #### [facility] [address] [address] [address] Esthela Stevens WBC 10.8 103/ul Normal 4.0-11.0 [facility] Comment on above: Performed By: #### L IVER, LDH, BMP #### [facility] [address] [address] [address] Esthela Stevens PROF 14(COMP METB)on 022 Albumin [Mass/Vol] 3.7 g/dL Normal 3.4-5.0 [facility] Comment on above: Performed By: #### L IVER, LDH, BMP #### [facility] [address] [address] [address] Esthela Stevens Albumin/Globulin [Mass ratio] 1.0 {ratio} Normal [facility] Comment on above: Performed By: #### L IVER, LDH, BMP #### [facility] [address] [address] [address] Esthela Stevens ALP [Catalytic activity/Vol] 75 U/L Normal 46-116 [facility] Comment on above: Performed By: #### L IVER, LDH, BMP #### [facility] [address] [address] [address] Esthela Stevens ALT [Catalytic activity/Vol] 95 U/L Critically high 14-59 [facility] Comment on above: Performed By: #### L IVER, LDH, BMP #### [facility] [address] [address] [address] Esthela Stevens Anion gap [Moles/Vol] 13.4 mmol/L Normal [facility] Comment on above: Performed By: #### L IVER, LDH, BMP #### [facility] [address] [address] [address] Esthela Stevens AST [Catalytic activity/Vol] 31 U/L Normal 15-37 [facility] Comment on above: Performed By: #### L IVER, LDH, BMP #### [facility] [address] [address] [address] Esthela Stevens Bilirubin [Mass/Vol] 0.1 mg/dL Critically low 0.2-1.0 [facility] Comment on above: Performed By: #### L IVER, LDH, BMP #### [facility] [address] [address] [address] Esthela Stevens Calcium [Mass/Vol] 9.3 mg/dL Normal 8.5-10.1 [facility] Comment on above: Performed By: #### L IVER, LDH, BMP #### [facility] [address] [place] [address] Dr. Esthela Stevens Chloride [Moles/Vol] 102 mmol/L Normal 98-107 [facility] Comment on above: Performed By: #### L IVER, LDH, BMP #### [facility] [address] [address] [address] Esthela Stevens CO2 [Moles/Vol] 26.4 mmol/L Normal 21.0-32.0 [facility] Comment on above: Performed By: #### L IVER, LDH, BMP #### [facility] [address] [place] [address] Dr. Esthela Stevens Creatinine [Mass/Vol] 0.67 mg/dL Normal 0.55-1.02 [facility] Comment on above: Performed By: #### L IVER, LDH, BMP #### [facility] [address] [place] [address] Dr. Esthela Stevens EGFR-AF GREENLANDIC >60 Normal >=60 [facility] Comment on above: Performed By: #### L IVER, LDH, BMP #### [facility] [address] [place] [address] Dr. Esthela Stevens EGFR-NON AF GREENLANDIC >60 Normal >=60 [facility] Comment on above: Performed By: #### L IVER, LDH, BMP #### [facility] [address] [place] [address] Dr. Esthela Stevens Globulin (S) [Mass/Vol] 3.7 g/dL Normal [facility] Comment on above: Performed By: #### L IVER, LDH, BMP #### [facility] [address] [place] [address] Dr. Esthela Stevens Glucose [Mass/Vol] 101 mg/dL Normal 74-106 [facility] Comment on above: Performed By: #### L IVER, LDH, BMP #### [facility] [address] [place] [address] Dr. Esthela Stevens Potassium [Moles/Vol] 3.8 mmol/L Normal 3.5-5.1 [facility] Comment on above: Performed By: #### L IVER, LDH, BMP #### [facility] [address] [place] [address] Dr. Esthela Stevens Protein [Mass/Vol] 7.4 g/dL Normal 6.4-8.2 [facility] Comment on above: Performed By: #### L IVER, LDH, BMP #### [facility] [address] [place] [address] Dr. Esthela Stevens Sodium [Moles/Vol] 138 mmol/L Normal 136-145 [facility] Comment on above: Performed By: #### L IVER, LDH, BMP #### [facility] [address] [place] [address] Dr. Esthela Stevens Urea nitrogen [Mass/Vol] 12.0 mg/dL Normal 7.0-18.0 [facility] Comment on above: Performed By: #### L IVER, LDH, BMP #### [facility] [address] [address] [address] Esthela Stevens Urea nitrogen/Creatinine [Mass ratio] 17.9 mg/mg Normal [facility] Comment on above: Performed By: #### L IVER, LDH, BMP #### [facility] [address] [address] [address] Esthela Stevens CALCIUMon 05-29-2022 Calcium [Mass/Vol] 9.0 mg/dL Normal 8.6-10.5 [facility] Comment on above: Performed By: #### C Danielle, IPB, CHM7, MGO #### [facility] (DEFAULT) [address] [place] [address] Calcium [Mass/Vol] 9.0 mg/dL 8.6 - 10. 5 mg/dL [facility] CBC,PLATELETSon 05-29-2022 Hematocrit (Bld) [Volume fraction] 33.0 % Low 34.9-44.3 [facility] Comment on above: Performed By: #### C Danielle, IPB, CHM7, MGO, HFP #### [facility] (DEFAULT) [address] [place] [address] Hemoglobin (Bld) [Mass/Vol] 10.5 g/dL Low 11.4-15.2 [facility] Comment on above: Performed By: #### C A, IPB, CHM7, MGO, HFP #### [facility] (DEFAULT) [address] [place] [address] MCV (RBC) [Entitic vol] 85.1 fL Normal 79.6-97.7 [facility] Comment on above: Performed By: #### Dayday A, IPB, CHM7, MGO, HFP #### [facility] (DEFAULT) [address] [place] [address]856 Mean Cell Hgb 27.1 pg Normal 25.9-33.9 [facility] Comment on above: Performed By: #### C A, IPB, CHM7, MGO, HFP #### [facility] (DEFAULT) [address] [place] [address]404 Mean Cell Hgb Conc 31.8 g/dL Normal 31.4-35.9 [facility] Comment on above: Performed By: #### C A, IPB, CHM7, MGO, HFP #### [facility] (DEFAULT) [address] [place] [address] Platelet mean volume (Bld) [Entitic vol] 9.1 fL Normal 8.5-12.2 [facility] Comment on above: Performed By: #### C A, IPB, CHM7, MGO, HFP #### [facility] (DEFAULT) [address] [place] [address] Platelets (Bld) [#/Vol] 423 10*3/uL High 150-393 [facility] Comment on above: Performed By: #### C A, IPB, CHM7, MGO, HFP #### [facility] (DEFAULT) [address] [place] [address] 82275 RBC (Bld) [#/Vol] 3.88 10*6/uL Low 3.91-5.04 [facility] Comment on above: Performed By: #### C A, IPB, CHM7, MGO, HFP #### [facility] (DEFAULT) [address] [place] [address] 71316 RBC Distribution 13.1 % Normal 10.8-14.9 [facility] Comment on above: Performed By: #### C A, IPB, CHM7, MGO, HFP #### [facility] (DEFAULT) [address] [place] [address]505 WBC (Bld) [#/Vol] 7.36 10*3/uL Normal 3.99-11.19 [facility] Comment on above: Performed By: #### C A, IPB, CHM7, MGO, HFP #### [facility] (DEFAULT) [address] [place] [address] Erythrocyte distribution width (RBC) [Ratio] 13.1 % 10.8 - 14.9 % [facility] Hematocrit (Bld) [Volume fraction] 33.0 % Low 34.9 - 44.3 % [facility] Hemoglobin (Bld) [Mass/Vol] 10.5 g/dL Low 11.4 - 15.2 g/dL [facility] Interpretation and review of laboratory results Abnormal [facility] MCH (RBC) [Entitic mass] 27.1 pg 25.9 - 33.9 pg [facility] MCHC (RBC) [Mass/Vol] 31.8 g/dL 31.4 - 35.9 g/dL [facility] MCV (RBC) [Entitic vol] 85.1 fL 79.6 - 97.7 fL [facility] Platelet mean volume (Bld) [Entitic vol] 9.1 fL 8.5 - 12.2 fL [facility] Platelets (Bld) [#/Vol] 423 10*3/uL High 150 - 393 K/uL [facility] RBC (Bld) [#/Vol] 3.88 10*6/uL Low [facility] WBC (Bld) [#/Vol] 7.36 10*3/uL 3.99 - 11. 19 K/uL [facility] CHEM 7 (LYTES,BUN,CREA,GLUC) on 05-29-2022 Anion gap [Moles/Vol] 13 mmol/L Normal 7-17 [facility] Comment on above: Performed By: #### C A, IPB, CHM7, MGO #### [facility] (DEFAULT) [address] [place] [address] Chloride [Moles/Vol] 104 mmol/L Normal 98-108 [facility] Comment on above: Performed By: #### C A, IPB, CHM7, MGO #### [facility] (DEFAULT) [address] [place] [address] CO2 [Moles/Vol] 26 mmol/L Normal 21-31 [facility] Comment on above: Performed By: #### RODRIGO Rangel, CHM7, MGO #### [facility] (DEFAULT) [address] [place] [address] Creatinine [Mass/Vol] 0.66 mg/dL Normal 0.50-1.20 [facility] Comment on above: Performed By: #### SHANEKA RangelB, CHM7, MGO #### [facility] (DEFAULT) [address] [place] [address]184 eGFR, CKD-EPI, Female > Normal >=60 [facility] Comment on above: Result Comment: Repo rted eGFR is based on the CKD-EPI 2020 equation using creatinine, age, and sex. Performed By: #### RODRIGO Rangel, CHM7, MGO #### [facility] (DEFAULT) [address] [place] [address] Glucose [Mass/Vol] 93 mg/dL Normal 70-99 [facility] Comment on above: Performed By: #### RODRIGO Rangel, CHM7, MGO #### [facility] (DEFAULT) [address] [place] [address]484 Osmolality [Osmolality] 288 mosm/kg Normal 278-305 [facility] Comment on above: Performed By: #### SHANEKA RangelB, CHM7, MGO #### [facility] (DEFAULT) [address] [place] [address]674 Potassium [Moles/Vol] 4.2 mmol/L Normal 3.5-5.0 [facility] Comment on above: Performed By: #### SHANEKA RangelB, CHM7, MGO #### [facility] (DEFAULT) [address] [place] [address] 53782 Sodium [Moles/Vol] 139 mmol/L Normal 135-145 [facility] Comment on above: Performed By: #### Dayday Santos IPB, CHM7, MGO #### [facility] (DEFAULT) [address] [place] [address] Urea nitrogen [Mass/Vol] 5 mg/dL Low 7-25 [facility] Comment on above: Performed By: #### C RODRIGO Santos, MELVINM7, MGO #### [facility] (DEFAULT) [address] [place] [address] Urea nitrogen/Creatinine [Mass ratio] 8 mg/mg Normal [facility] Comment on above: Performed By: #### C RODRIGO Santos, MELVINM7, MGO #### [facility] (DEFAULT) [address] [place] [address] Anion gap [Moles/Vol] 13 mmol/L 7 - 17 mmol/L [facility] Chloride [Moles/Vol] 104 mmol/L 98 - 10 8 mmol/L [facility] CO2 [Moles/Vol] 26 mmol/L 21 - 31 mmol/L [facility] Creatinine [Mass/Vol] 0.66 mg/dL 0.50 - 1.20 mg/dL [facility] GFR/1.73 sq M.predicted CKD-EPI (S/P/Bld) [Vol rate/Area] - [facility] Comment on above: Reported eGFR is bas ed on the CKD-EPI 2020 equation using creatinine, age, and sex. Glucose [Mass/Vol] 93 mg/dL 70 - 99 mg/dL [facility] Osmolality Calc [Osmolality] 288 [facility] Potassium [Moles/Vol] 4.2 mmol/L 3.5 - 5.0 mmol/L [facility] Sodium [Moles/Vol] 139 mmol/L 135 - 145 mmol/L [facility] Urea nitrogen [Mass/Vol] 5 mg/dL Low 7 - 25 mg/dL [facility] Urea nitrogen/Creatinine [Mass ratio] 8 mg/mg [facility] MAGNESIUMon 05-29-2022 Magnesium [Mass/Vol] 2.1 mg/dL Normal 1.6-2.6 [facility] Comment on above: Performed By: #### RODRIGO Rangel CHM7, MGO #### [facility] (DEFAULT) [address] [place] [address]48 Magnesium [Mass/Vol] 2.1 mg/dL 1.6 - 2 .6 mg/dL [facility] No Panel Informationon 05-29 Interpretation and review of laboratory results Abnormal [facility] Interpretation and review of laboratory results Normal [facility] PHOSPHATE, INORGANICon 05-29 Phosphorous 4.8 mg/dL High 2.2-4.6 [facility] Comment on above: Performed By: #### RODRIGO Rangel CHM7, MGO #### [facility] (DEFAULT) [address] [place] [address] 20557 Phosphate [Mass/Vol] 4.8 mg/dL High 2.2 - 4 .6 mg/dL [facility] CALCIUMon 05-28-2022 Calcium [Mass/Vol] 8.6 mg/dL Normal 8.6-10.5 [facility] Comment on above: Performed By: #### RODRIGO Rangel, HUBERT, MGO #### [facility] (DEFAULT) [address] [place] [address] 35728 Calcium [Mass/Vol] 8.6 mg/dL 8.6 - 10. 5 mg/dL [facility] CBC,PLATELETSon 05-28-2022 Hematocrit (Bld) [Volume fraction] 30.5 % Low 34.9-44.3 [facility] Comment on above: Performed By: #### RODRIGO Rangel, MELVINMRenee, MGO, HFP #### [facility] (DEFAULT) [address] [place] [address] 68598 Hemoglobin (Bld) [Mass/Vol] 9.8 g/dL Low 11.4-15.2 [facility] Comment on above: Performed By: #### RODRIGO Rangel, MELVINMRenee, MGO, HFP #### [facility] (DEFAULT) [address] [place] [address] 94288 MCV (RBC) [Entitic vol] 83.6 fL Normal 79.6-97.7 [facility] Comment on above: Performed By: #### C A, IPB, CHM7, MGO, HFP #### [facility] (DEFAULT) [address] [place] [address] 55407 Mean Cell Hgb 26.8 pg Normal 25.9-33.9 [facility] Comment on above: Performed By: #### C A, IPB, CHM7, MGO, HFP #### [facility] (DEFAULT) [address] [place] [address] 70971 Mean Cell Hgb Conc 32.1 g/dL Normal 31.4-35.9 [facility] Comment on above: Performed By: #### C A, IPB, CHM7, MGO, HFP #### [facility] (DEFAULT) [address] [place] [address] 92341 Platelet mean volume (Bld) [Entitic vol] 9.3 fL Normal 8.5-12.2 [facility] Comment on above: Performed By: #### C A, IPB, CHM7, MGO, HFP #### [facility] (DEFAULT) [address] [place] [address] 93056 Platelets (Bld) [#/Vol] 374 10*3/uL Normal 150-393 [facility] Comment on above: Performed By: #### C A, IPB, CHM7, MGO, HFP #### [facility] (DEFAULT) [address] [place] [address] 14150 RBC (Bld) [#/Vol] 3.65 10*6/uL Low 3.91-5.04 [facility] Comment on above: Performed By: #### C A, IPB, CHM7, MGO, HFP #### [facility] (DEFAULT) [address] [place] [address] 31838 RBC Distribution 13.0 % Normal 10.8-14.9 [facility] Comment on above: Performed By: #### C Danielle, SHANEKAB, CHM7, MGO, HFP #### [facility] (DEFAULT) [address] [place] [address] WBC (Bld) [#/Vol] 6.07 10*3/uL Normal 3.99-11.19 [facility] Comment on above: Performed By: #### RODRIGO Rangel, MELVINMRenee, MGO, HFP #### [facility] (DEFAULT) [address] [place] [address] Erythrocyte distribution width (RBC) [Ratio] 13.0 % 10.8 - 14.9 % [facility] Hematocrit (Bld) [Volume fraction] 30.5 % Low 34.9 - 44.3 % [facility] Hemoglobin (Bld) [Mass/Vol] 9.8 g/dL Low 11.4 - 15.2 g/dL [facility] Interpretation and review of laboratory results Abnormal [facility] MCH (RBC) [Entitic mass] 26.8 pg 25.9 - 33.9 pg [facility] MCHC (RBC) [Mass/Vol] 32.1 g/dL 31.4 - 35.9 g/dL [facility] MCV (RBC) [Entitic vol] 83.6 fL 79.6 - 97.7 fL [facility] Platelet mean volume (Bld) [Entitic vol] 9.3 fL 8.5 - 12.2 fL [facility] Platelets (Bld) [#/Vol] 374 10*3/uL 150 - 393 K/uL [facility] RBC (Bld) [#/Vol] 3.65 10*6/uL Low [facility] WBC (Bld) [#/Vol] 6.07 10*3/uL 3.99 - 11. 19 K/uL [facility] CHEM 7 (LYTES,BUN,CREA,GLUC) on 05-28-2022 Anion gap [Moles/Vol] 11 mmol/L Normal 7-17 [facility] Comment on above: Performed By: #### RODRIGO Rangel, CHM7, MGO #### [facility] (DEFAULT) [address] [place] [address] 67165 Chloride [Moles/Vol] 106 mmol/L Normal 98-108 [facility] Comment on above: Performed By: #### Dayday Santos, IPB, CHM7, MGO #### [facility] (DEFAULT) [address] [place] [address] 68581 CO2 [Moles/Vol] 25 mmol/L Normal 21-31 [facility] Comment on above: Performed By: #### SHANEKA RangelB, CHM7, MGO #### [facility] (DEFAULT) [address] [place] [address] 99969 Creatinine [Mass/Vol] 0.50 mg/dL Normal 0.50-1.20 [facility] Comment on above: Performed By: #### Dayday Santos IPB, CHM7, MGO #### [facility] (DEFAULT) [address] [place] [address] 33753 eGFR, CKD-EPI, Female > Normal >=60 [facility] Comment on above: Result Comment: Repo rted eGFR is based on the CKD-EPI 1 equation using creatinine, age, and sex. Performed By: #### SHANEKA RangelB, CHM7, MGO #### [facility] (DEFAULT) [address] [place] [address] 54773 Glucose [Mass/Vol] 89 mg/dL Normal 70-99 [facility] Comment on above: Performed By: #### Dayday Santos IPB, CHM7, MGO #### [facility] (DEFAULT) [address] [place] [address] 77633 Osmolality [Osmolality] 285 mosm/kg Normal 278-305 [facility] Comment on above: Performed By: #### Dayday Santos, IPB, CHM7, MGO #### [facility] (DEFAULT) [address] [place] [address] 10503 Potassium [Moles/Vol] 4.1 mmol/L Normal 3.5-5.0 [facility] Comment on above: Performed By: #### C Danielle, IPB, CHM7, MGO #### [facility] (DEFAULT) [address] [place] [address] 15873 Sodium [Moles/Vol] 138 mmol/L Normal 135-145 [facility] Comment on above: Performed By: #### Dayday A, IPB, CHM7, MGO #### [facility] (DEFAULT) [address] [place] [address] 21904 Urea nitrogen [Mass/Vol] 3 mg/dL Low 7-25 [facility] Comment on above: Performed By: #### Dayday A, IPB, CHM7, MGO #### [facility] (DEFAULT) [address] [place] [address] 91672 Urea nitrogen/Creatinine [Mass ratio] 6 mg/mg Normal [facility] Comment on above: Performed By: #### Dayday A, IPB, CHM7, MGO #### [facility] (DEFAULT) [address] [place] [address] 42622 Anion gap [Moles/Vol] 11 mmol/L 7 - 17 mmol/L [facility] Chloride [Moles/Vol] 106 mmol/L 98 - 10 8 mmol/L [facility] CO2 [Moles/Vol] 25 mmol/L 21 - 31 mmol/L [facility] Creatinine [Mass/Vol] 0.50 mg/dL 0.50 - 1.20 mg/dL [facility] GFR/1.73 sq M.predicted CKD-EPI (S/P/Bld) [Vol rate/Area] - PINF [facility] Comment on above: Reported eGFR is bas ed on the CKD-EPI 2020 equation using creatinine, age, and sex. Glucose [Mass/Vol] 89 mg/dL 70 - 99 mg/dL [facility] Osmolality Calc [Osmolality] 285 [facility] Potassium [Moles/Vol] 4.1 mmol/L 3.5 - 5.0 mmol/L [facility] Sodium [Moles/Vol] 138 mmol/L 135 - 145 mmol/L [facility] Urea nitrogen [Mass/Vol] 3 mg/dL Low 7 - 25 mg/dL [facility] Urea nitrogen/Creatinine [Mass ratio] 6 mg/mg [facility] MAGNESIUMon 05-28-2022 Magnesium [Mass/Vol] 1.8 mg/dL Normal 1.6-2.6 [facility] Comment on above: Performed By: #### RODRIGO Rangel CHM7, MGO #### [facility] (DEFAULT) [address] [place] [address] 17124 Magnesium [Mass/Vol] 1.8 mg/dL 1.6 - 2 .6 mg/dL [facility] No Panel Informationon 05-28 Interpretation and review of laboratory results Abnormal [facility] Interpretation and review of laboratory results Normal [facility] PHOSPHATE, INORGANICon 05-28 Phosphorous 4.9 mg/dL High 2.2-4.6 [facility] Comment on above: Performed By: #### RODRIGO Rangel CHM7, MGO #### [facility] (DEFAULT) [address] [place] [address] Phosphate [Mass/Vol] 4.9 mg/dL High 2.2 - 4 .6 mg/dL [facility] CALCIUMon 05-27-2022 Calcium [Mass/Vol] 8.6 mg/dL Normal 8.6-10.5 [facility] Comment on above: Performed By: #### RODRIGO Rangel CHM7, MGO #### [facility] (DEFAULT) [address] [place] [address] Calcium [Mass/Vol] 8.6 mg/dL 8.6 - 10. 5 mg/dL [facility] CBC,PLATELETSon 05-27-2022 Hematocrit (Bld) [Volume fraction] 31.1 % Low 34.9-44.3 [facility] Comment on above: Performed By: #### RODRIGO Rangel, MELVINM7, MGO #### [facility] (DEFAULT) [address] [place] [address] 54854 Hemoglobin (Bld) [Mass/Vol] 10.1 g/dL Low 11.4-15.2 [facility] Comment on above: Performed By: #### RODRIGO Rangel, CHM7, MGO #### [facility] (DEFAULT) [address] [place] [address] 23460 MCV (RBC) [Entitic vol] 83.8 fL Normal 79.6-97.7 [facility] Comment on above: Performed By: #### RODRIGO Rangel, CHM7, MGO #### [facility] (DEFAULT) [address] [place] [address] 39092 Mean Cell Hgb 27.2 pg Normal 25.9-33.9 [facility] Comment on above: Performed By: #### RODRIGO Rangel, CHM7, MGO #### [facility] (DEFAULT) [address] [place] [address] 06750 Mean Cell Hgb Conc 32.5 g/dL Normal 31.4-35.9 [facility] Comment on above: Performed By: #### RODRIGO Rangel, CHM7, MGO #### [facility] (DEFAULT) [address] [place] [address] 18299 Platelet mean volume (Bld) [Entitic vol] 9.2 fL Normal 8.5-12.2 [facility] Comment on above: Performed By: #### RODRIGO Rangel, CHM7, MGO #### [facility] (DEFAULT) [address] [place] [address] 43038 Platelets (Bld) [#/Vol] 344 10*3/uL Normal 150-393 [facility] Comment on above: Performed By: #### C A, IPB, CHM7, MGO #### [facility] (DEFAULT) [address] [place] [address] 06125 RBC (Bld) [#/Vol] 3.71 10*6/uL Low 3.91-5.04 [facility] Comment on above: Performed By: #### RODRIGO Rangel, CHM7, MGO #### [facility] (DEFAULT) [address] [place] [address] 39978 RBC Distribution 12.9 % Normal 10.8-14.9 [facility] Comment on above: Performed By: #### RODRIGO Rangel, CHM7, MGO #### [facility] (DEFAULT) [address] [place] [address] 01889 WBC (Bld) [#/Vol] 6.21 10*3/uL Normal 3.99-11.19 [facility] Comment on above: Performed By: #### RODRIGO Rangel, CHM7, MGO #### [facility] (DEFAULT) [address] [place] [address] 19886 Erythrocyte distribution width (RBC) [Ratio] 12.9 % 10.8 - 14.9 % [facility] Hematocrit (Bld) [Volume fraction] 31.1 % Low 34.9 - 44.3 % [facility] Hemoglobin (Bld) [Mass/Vol] 10.1 g/dL Low 11.4 - 15.2 g/dL [facility] Interpretation and review of laboratory results Abnormal [facility] MCH (RBC) [Entitic mass] 27.2 pg 25.9 - 33.9 pg [facility] MCHC (RBC) [Mass/Vol] 32.5 g/dL 31.4 - 35.9 g/dL [facility] MCV (RBC) [Entitic vol] 83.8 fL 79.6 - 97.7 fL [facility] Platelet mean volume (Bld) [Entitic vol] 9.2 fL 8.5 - 12.2 fL [facility] Platelets (Bld) [#/Vol] 344 10*3/uL 150 - 393 K/uL [facility] RBC (Bld) [#/Vol] 3.71 10*6/uL Low [facility] WBC (Bld) [#/Vol] 6.21 10*3/uL 3.99 - 11. 19 K/uL [facility] CHEM 7 (LYTES,BUN,CREA,GLUC) on 05-27-2022 Anion gap [Moles/Vol] 11 mmol/L Normal 7-17 [facility] Comment on above: Performed By: #### C A, IPB, CHM7, MGO #### [facility] (DEFAULT) [address] [place] [address] 68483 Chloride [Moles/Vol] 105 mmol/L Normal 98-108 [facility] Comment on above: Performed By: #### C A, IPB, CHM7, MGO #### [facility] (DEFAULT) [address] [place] [address] 64854 CO2 [Moles/Vol] 26 mmol/L Normal 21-31 [facility] Comment on above: Performed By: #### C A, IPB, CHM7, MGO #### [facility] (DEFAULT) [address] [place] [address] 97638 Creatinine [Mass/Vol] 0.49 mg/dL Low 0.50-1.20 [facility] Comment on above: Performed By: #### C A, IPB, CHM7, MGO #### [facility] (DEFAULT) [address] [place] [address] 77757 eGFR, CKD-EPI, Female > Normal >=60 [facility] Comment on above: Result Comment: Repo rted eGFR is based on the CKD-EPI 2020 equation using creatinine, age, and sex. Performed By: #### C A, IPB, CHM7, MGO #### [facility] (DEFAULT) [address] [place] [address] Glucose [Mass/Vol] 93 mg/dL Normal 70-99 [facility] Comment on above: Performed By: #### Dayday Santos, IPB, CHM7, MGO #### [facility] (DEFAULT) [address] [place] [address] 65629 Osmolality [Osmolality] 285 mosm/kg Normal 278-305 [facility] Comment on above: Performed By: #### Dayday Santos, IPB, CHM7, MGO #### [facility] (DEFAULT) [address] [place] [address] 45286 Potassium [Moles/Vol] 4.0 mmol/L Normal 3.5-5.0 [facility] Comment on above: Performed By: #### Dayday Santos, IPB, CHM7, MGO #### [facility] (DEFAULT) [address] [place] [address] 49548 Sodium [Moles/Vol] 138 mmol/L Normal 135-145 [facility] Comment on above: Performed By: #### Dayday Santos, IPB, CHM7, MGO #### [facility] (DEFAULT) [address] [place] [address] 88287 Urea nitrogen [Mass/Vol] 3 mg/dL Low 7-25 [facility] Comment on above: Performed By: #### Dayday A, IPB, CHM7, MGO #### [facility] (DEFAULT) [address] [place] [address] 17369 Urea nitrogen/Creatinine [Mass ratio] 6 mg/mg Normal [facility] Comment on above: Performed By: #### Dayday A, IPB, CHM7, MGO #### [facility] (DEFAULT) [address] [place] [address] 86830 Anion gap [Moles/Vol] 11 mmol/L 7 - 17 mmol/L [facility] Chloride [Moles/Vol] 105 mmol/L 98 - 10 8 mmol/L [facility] CO2 [Moles/Vol] 26 mmol/L 21 - 31 mmol/L [facility] Creatinine [Mass/Vol] 0.49 mg/dL Low 0.50 - 1.20 mg/dL [facility] GFR/1.73 sq M.predicted CKD-EPI (S/P/Bld) [Vol rate/Area] - PINF [facility] Comment on above: Reported eGFR is bas ed on the CKD-EPI 2020 equation using creatinine, age, and sex. Glucose [Mass/Vol] 93 mg/dL 70 - 99 mg/dL [facility] Interpretation and review of laboratory results Abnormal [facility] Osmolality Calc [Osmolality] 285 [facility] Potassium [Moles/Vol] 4.0 mmol/L 3.5 - 5.0 mmol/L [facility] Sodium [Moles/Vol] 138 mmol/L 135 - 145 mmol/L [facility] Urea nitrogen [Mass/Vol] 3 mg/dL Low 7 - 25 mg/dL [facility] Urea nitrogen/Creatinine [Mass ratio] 6 mg/mg [facility] MAGNESIUMon 05-27-2022 Magnesium [Mass/Vol] 1.9 mg/dL Normal 1.6-2.6 [facility] Comment on above: Performed By: #### C RODRIGO Santos, HUBERT, MGO #### [facility] (DEFAULT) [address] [address] Magnesium [Mass/Vol] 1.9 mg/dL 1.6 - 2 .6 mg/dL [facility] No Panel Informationon 05-27 Interpretation and review of laboratory results Normal [facility] PHOSPHATE, INORGANICon 05-27 Phosphorous 4.5 mg/dL Normal 2.2-4.6 [facility] Comment on above: Performed By: #### RODRIGO Rangel, CHARLIE7, MGO #### [facility] (DEFAULT) [address] [place] [address] 67307 Phosphate [Mass/Vol] 4.5 mg/dL 2.2 - 4 .6 mg/dL [facility] CALCIUMon 05-26-2022 Calcium [Mass/Vol] 8.4 mg/dL Low 8.6-10.5 [facility] Comment on above: Performed By: #### C RODRIGO Santos, CHM7, MGO #### [facility] (DEFAULT) [address] [address] Calcium [Mass/Vol] 8.4 mg/dL Low 8.6 - 10. 5 mg/dL [facility] CBC,PLATELETSon 05-26-2022 Hematocrit (Bld) [Volume fraction] 31.5 % Low 34.9-44.3 [facility] Comment on above: Performed By: #### Y CHGRA #### [facility] (DEFAULT) [address] [place] [address] 81746 Hemoglobin (Bld) [Mass/Vol] 10.0 g/dL Low 11.4-15.2 [facility] Comment on above: Performed By: #### Y CHGRA #### [facility] (DEFAULT) [address] [address] MCV (RBC) [Entitic vol] 84.9 fL Normal 79.6-97.7 [facility] Comment on above: Performed By: #### Y CHGRA #### [facility] (DEFAULT) [address] [address] Mean Cell Hgb 27.0 pg Normal 25.9-33.9 [facility] Comment on above: Performed By: #### Y CHGRA #### [facility] (DEFAULT) [address] [place] [address] 67255 Mean Cell Hgb Conc 31.7 g/dL Normal 31.4-35.9 [facility] Comment on above: Performed By: #### Y CHGRA #### [facility] (DEFAULT) [address] [place] [address] 62377 Platelet mean volume (Bld) [Entitic vol] 9.7 fL Normal 8.5-12.2 [facility] Comment on above: Performed By: #### Y CHGRA #### [facility] (DEFAULT) [address] [place] [address] 94097 Platelets (Bld) [#/Vol] 327 10*3/uL Normal 150-393 [facility] Comment on above: Performed By: #### Y CHGRA #### [facility] (DEFAULT) [address] [place] [address] 04786 RBC (Bld) [#/Vol] 3.71 10*6/uL Low 3.91-5.04 [facility] Comment on above: Performed By: #### Y CHGRA #### [facility] (DEFAULT) [address] [place] [address] 25862 RBC Distribution 12.8 % Normal 10.8-14.9 [facility] Comment on above: Performed By: #### Y CHGRA #### [facility] (DEFAULT) [address] [place] [address] 74046 WBC (Bld) [#/Vol] 7.91 10*3/uL Normal 3.99-11.19 [facility] Comment on above: Performed By: #### Y CHGRA #### [facility] (DEFAULT) [address] [place] [address] 51898 Erythrocyte distribution width (RBC) [Ratio] 12.8 % 10.8 - 14.9 % [facility] Hematocrit (Bld) [Volume fraction] 31.5 % Low 34.9 - 44.3 % [facility] Hemoglobin (Bld) [Mass/Vol] 10.0 g/dL Low 11.4 - 15.2 g/dL [facility] Interpretation and review of laboratory results Abnormal [facility] MCH (RBC) [Entitic mass] 27.0 pg 25.9 - 33.9 pg [facility] MCHC (RBC) [Mass/Vol] 31.7 g/dL 31.4 - 35.9 g/dL [facility] MCV (RBC) [Entitic vol] 84.9 fL 79.6 - 97.7 fL [facility] Platelet mean volume (Bld) [Entitic vol] 9.7 fL 8.5 - 12.2 fL [facility] Platelets (Bld) [#/Vol] 327 10*3/uL 150 - 393 K/uL [facility] RBC (Bld) [#/Vol] 3.71 10*6/uL Low [facility] WBC (Bld) [#/Vol] 7.91 10*3/uL 3.99 - 11. 19 K/uL [facility] CHEM 7 (LYTES,BUN,CREA,GLUC) on 05-26-2022 Anion gap [Moles/Vol] 13 mmol/L Normal 7-17 [facility] Comment on above: Performed By: #### Y CHGRA #### [facility] (DEFAULT) [address] [place] [address] 73744 Chloride [Moles/Vol] 102 mmol/L Normal 98-108 [facility] Comment on above: Performed By: #### Y CHGRA #### [facility] (DEFAULT) [address] [place] [address] 48534 CO2 [Moles/Vol] 23 mmol/L Normal 21-31 [facility] Comment on above: Performed By: #### Y CHGRA #### [facility] (DEFAULT) [address] [place] [address] 16448 Creatinine [Mass/Vol] 0.48 mg/dL Low 0.50-1.20 [facility] Comment on above: Performed By: #### Y CHGRA #### [facility] (DEFAULT) [address] [place] [address] 58775 eGFR, CKD-EPI, Female > Normal >=60 [facility] Comment on above: Result Comment: Repo rted eGFR is based on the CKD-EPI 2020 equation using creatinine, age, and sex. Performed By: #### Y CHGRA #### [facility] (DEFAULT) [address] [place] [address] 89789 Glucose [Mass/Vol] 154 mg/dL High 70-99 [facility] Comment on above: Performed By: #### Y CHGRA #### [facility] (DEFAULT) [address] [place] [address] 11250 Osmolality [Osmolality] 282 mosm/kg Normal 278-305 [facility] Comment on above: Performed By: #### Y CHGRA #### [facility] (DEFAULT) [address] [place] [address] 39387 Potassium [Moles/Vol] 4.1 mmol/L Normal 3.5-5.0 [facility] Comment on above: Performed By: #### Y CHGRA #### [facility] (DEFAULT) [address] [place] [address] 17031 Sodium [Moles/Vol] 134 mmol/L Low 135-145 [facility] Comment on above: Performed By: #### Y MELVINGRA #### [facility] (DEFAULT) [address] [place] [address] 22463 Urea nitrogen [Mass/Vol] 3 mg/dL Low 7-25 [facility] Comment on above: Performed By: #### Y CHGRA #### [facility] (DEFAULT) [address] [place] [address] 64808 Urea nitrogen/Creatinine [Mass ratio] 6 mg/mg Normal [facility] Comment on above: Performed By: #### Y CHGRA #### [facility] (DEFAULT) [address] [place] [address] 12185 Anion gap [Moles/Vol] 13 mmol/L 7 - 17 mmol/L [facility] Chloride [Moles/Vol] 102 mmol/L 98 - 10 8 mmol/L [facility] CO2 [Moles/Vol] 23 mmol/L 21 - 31 mmol/L [facility] Creatinine [Mass/Vol] 0.48 mg/dL Low 0.50 - 1.20 mg/dL [facility] GFR/1.73 sq M.predicted CKD-EPI (S/P/Bld) [Vol rate/Area] - PINF [facility] Comment on above: Reported eGFR is bas ed on the CKD-EPI 2020 equation using creatinine, age, and sex. Glucose [Mass/Vol] 154 mg/dL High 70 - 99 mg/dL [facility] Osmolality Calc [Osmolality] 282 [facility] Potassium [Moles/Vol] 4.1 mmol/L 3.5 - 5.0 mmol/L [facility] Sodium [Moles/Vol] 134 mmol/L Low 135 - 145 mmol/L [facility] Urea nitrogen [Mass/Vol] 3 mg/dL Low 7 - 25 mg/dL [facility] Urea nitrogen/Creatinine [Mass ratio] 6 mg/mg [facility] MAGNESIUMon 05-26-2022 Magnesium [Mass/Vol] 1.8 mg/dL Normal 1.6-2.6 [facility] Comment on above: Performed By: #### Y CHGRA #### [facility] (DEFAULT) [address] [place] [address] 80152 Magnesium [Mass/Vol] 1.8 mg/dL 1.6 - 2 .6 mg/dL [facility] No Panel Informationon 05-26 Interpretation and review of laboratory results Abnormal [facility] Interpretation and review of laboratory results Normal [facility] PHOSPHATE, INORGANICon 05-26 Phosphorous 3.4 mg/dL Normal 2.2-4.6 [facility] Comment on above: Performed By: #### Y CHGRA #### [facility] (DEFAULT) [address] [address] Phosphate [Mass/Vol] 3.4 mg/dL 2.2 - 4 .6 mg/dL [facility] CALCIUMon 05-25-2022 Calcium [Mass/Vol] 8.5 mg/dL Low 8.6 - 10. 5 mg/dL [facility] Calcium [Mass/Vol] 8.5 mg/dL Low 8.6-10.5 [facility] Comment on above: Performed By: #### Dayday Santos, IPB, CHM7, MGO #### [facility] (DEFAULT) [address] [place] [address] 90007 CBC,PLATELETSon 05-25-2022 Hematocrit (Bld) [Volume fraction] 31.7 % Low 34.9-44.3 [facility] Comment on above: Performed By: #### Dayday Santos, IPB, CHM7, MGO #### [facility] (DEFAULT) [address] [place] [address] 50713 Hemoglobin (Bld) [Mass/Vol] 9.8 g/dL Low 11.4-15.2 [facility] Comment on above: Performed By: #### Dayday Santos, IPB, CHM7, MGO #### [facility] (DEFAULT) [address] [place] [address] 78245 MCV (RBC) [Entitic vol] 85.9 fL Normal 79.6-97.7 [facility] Comment on above: Performed By: #### Dayday Sanots, IPB, CHM7, MGO #### [facility] (DEFAULT) [address] [place] [address] Mean Cell Hgb 26.6 pg Normal 25.9-33.9 [facility] Comment on above: Performed By: #### Dayday A, IPB, CHM7, MGO #### [facility] (DEFAULT) [address] [place] [address] 28732 Mean Cell Hgb Conc 30.9 g/dL Low 31.4-35.9 [facility] Comment on above: Performed By: #### Dayday Santos, IPB, CHM7, MGO #### [facility] (DEFAULT) [address] [place] [address] 94840 Platelet mean volume (Bld) [Entitic vol] 9.7 fL Normal 8.5-12.2 [facility] Comment on above: Performed By: #### Dayday A, IPB, CHM7, MGO #### [facility] (DEFAULT) [address] [place] [address] 40099 Platelets (Bld) [#/Vol] 292 10*3/uL Normal 150-393 [facility] Comment on above: Performed By: #### Dayday Santos, IPB, CHM7, MGO #### [facility] (DEFAULT) [address] [place] [address] 19314 RBC (Bld) [#/Vol] 3.69 10*6/uL Low 3.91-5.04 [facility] Comment on above: Performed By: #### Dayday Santos, IPB, CHM7, MGO #### [facility] (DEFAULT) [address] [place] [address] 50607 RBC Distribution 12.8 % Normal 10.8-14.9 [facility] Comment on above: Performed By: #### Dayday Santos, IPB, CHM7, MGO #### [facility] (DEFAULT) [address] [place] [address] 73466 WBC (Bld) [#/Vol] 9.85 10*3/uL Normal 3.99-11.19 [facility] Comment on above: Performed By: #### Dayday A, IPB, CHM7, MGO #### [facility] (DEFAULT) [address] [place] [address] 29226 Erythrocyte distribution width (RBC) [Ratio] 12.8 % 10.8 - 14.9 % [facility] Hematocrit (Bld) [Volume fraction] 31.7 % Low 34.9 - 44.3 % [facility] Hemoglobin (Bld) [Mass/Vol] 9.8 g/dL Low 11.4 - 15.2 g/dL [facility] Interpretation and review of laboratory results Abnormal [facility] MCH (RBC) [Entitic mass] 26.6 pg 25.9 - 33.9 pg [facility] MCHC (RBC) [Mass/Vol] 30.9 g/dL Low 31.4 - 35.9 g/dL [facility] MCV (RBC) [Entitic vol] 85.9 fL 79.6 - 97.7 fL [facility] Platelet mean volume (Bld) [Entitic vol] 9.7 fL 8.5 - 12.2 fL [facility] Platelets (Bld) [#/Vol] 292 10*3/uL 150 - 393 K/uL [facility] RBC (Bld) [#/Vol] 3.69 10*6/uL Low [facility] WBC (Bld) [#/Vol] 9.85 10*3/uL 3.99 - 11. 19 K/uL [facility] CHEM 7 (LYTES,BUN,CREA,GLUC) on 05-25-2022 Anion gap [Moles/Vol] 13 mmol/L 7 - 17 mmol/L [facility] Chloride [Moles/Vol] 104 mmol/L 98 - 10 8 mmol/L [facility] CO2 [Moles/Vol] 24 mmol/L 21 - 31 mmol/L [facility] Creatinine [Mass/Vol] 0.51 mg/dL 0.50 - 1.20 mg/dL [facility] GFR/1.73 sq M.predicted CKD-EPI (S/P/Bld) [Vol rate/Area] - PINF [facility] Comment on above: Reported eGFR is bas ed on the CKD-EPI 2020 equation using creatinine, age, and sex. Glucose [Mass/Vol] 98 mg/dL 70 - 99 mg/dL [facility] Potassium [Moles/Vol] 4.0 mmol/L 3.5 - 5.0 mmol/L [facility] Sodium [Moles/Vol] 137 mmol/L 135 - 145 mmol/L [facility] Urea nitrogen [Mass/Vol] 2 mg/dL Low 7 - 25 mg/dL [facility] Urea nitrogen/Creatinine [Mass ratio] 4 mg/mg [facility] Anion gap [Moles/Vol] 13 mmol/L Normal 7-17 [facility] Comment on above: Performed By: #### C A, IPB, CHM7, MGO #### [facility] (DEFAULT) [address] [place] [address] 93425 Chloride [Moles/Vol] 104 mmol/L Normal 98-108 [facility] Comment on above: Performed By: #### C A, IPB, CHM7, MGO #### [facility] (DEFAULT) [address] [place] [address] 58511 CO2 [Moles/Vol] 24 mmol/L Normal 21-31 [facility] Comment on above: Performed By: #### C A, IPB, CHM7, MGO #### [facility] (DEFAULT) [address] [place] [address] 12420 Creatinine [Mass/Vol] 0.51 mg/dL Normal 0.50-1.20 [facility] Comment on above: Performed By: #### C A, IPB, CHM7, MGO #### [facility] (DEFAULT) [address] [place] [address] 94614 eGFR, CKD-EPI, Female > Normal >=60 [facility] Comment on above: Result Comment: Repo rted eGFR is based on the CKD-EPI 2020 equation using creatinine, age, and sex. Performed By: #### C A, IPB, CHM7, MGO #### [facility] (DEFAULT) [address] [place] [address] 76021 Glucose [Mass/Vol] 98 mg/dL Normal 70-99 [facility] Comment on above: Performed By: #### C A, IPB, CHM7, MGO #### [facility] (DEFAULT) [address] [place] [address] 43107 Osmolality [Osmolality] 283 mosm/kg Normal 278-305 [facility] Comment on above: Performed By: #### C A, IPB, CHM7, MGO #### [facility] (DEFAULT) [address] [place] [address] 55296 Potassium [Moles/Vol] 4.0 mmol/L Normal 3.5-5.0 [facility] Comment on above: Performed By: #### RODRIGO Rangel, CHM7, MGO #### [facility] (DEFAULT) [address] [place] [address] 77470 Sodium [Moles/Vol] 137 mmol/L Normal 135-145 [facility] Comment on above: Performed By: #### Dayday Santos, IPB, CHM7, MGO #### [facility] (DEFAULT) [address] [place] [address] 64597 Urea nitrogen [Mass/Vol] 2 mg/dL Low 7-25 [facility] Comment on above: Performed By: #### Dayday Santos, SHANEKAB, CHM7, MGO #### [facility] (DEFAULT) [address] [place] [address] 06616 Urea nitrogen/Creatinine [Mass ratio] 4 mg/mg Normal [facility] Comment on above: Performed By: #### Dayday Santos, RODRIGO, CHM7, MGO #### [facility] (DEFAULT) [address] [place] [address] 11314 MAGNESIUMon 05-25-2022 Magnesium [Mass/Vol] 1.8 mg/dL 1.6 - 2 .6 mg/dL [facility] Magnesium [Mass/Vol] 1.8 mg/dL Normal 1.6-2.6 [facility] Comment on above: Performed By: #### Dayday Santos, SHANEKAB, CHM7, MGO #### [facility] (DEFAULT) [address] [place] [address] 51081 No Panel Informationon 05-25 Interpretation and review of laboratory results Abnormal [facility] Interpretation and review of laboratory results Normal [facility] PHOSPHATE, INORGANICon 05-25 Phosphate [Mass/Vol] 3.2 mg/dL 2.2 - 4 .6 mg/dL [facility] Phosphorous 3.2 mg/dL Normal 2.2-4.6 [facility] Comment on above: Performed By: #### RODRIGO Rangel, MELVINMRenee, MGO #### [facility] (DEFAULT) [address] [place] [address] 78139 CALCIUMon 05-24-2022 Calcium [Mass/Vol] 7.9 mg/dL Low 8.6-10.5 [facility] Comment on above: Performed By: #### Dayday Santos, RODRIGO, CHMRenee, MGO, HFP #### [facility] (DEFAULT) [address] [place] [address] 56981 Calcium [Mass/Vol] 7.9 mg/dL Low 8.6 - 10. 5 mg/dL [facility] CBC,PLATELETSon 05-24-2022 Hematocrit (Bld) [Volume fraction] 33.0 % Low 34.9-44.3 [facility] Comment on above: Performed By: #### Y CHGRA #### [facility] (DEFAULT) [address] [place] [address] 73053 Hemoglobin (Bld) [Mass/Vol] 10.4 g/dL Low 11.4-15.2 [facility] Comment on above: Performed By: #### Y CHGRA #### [facility] (DEFAULT) [address] [place] [address] 74787 MCV (RBC) [Entitic vol] 86.2 fL Normal 79.6-97.7 [facility] Comment on above: Performed By: #### Y CHGRA #### [facility] (DEFAULT) [address] [place] [address] 12784 Mean Cell Hgb 27.2 pg Normal 25.9-33.9 [facility] Comment on above: Performed By: #### Y CHGRA #### [facility] (DEFAULT) [address] [place] [address] 29001 Mean Cell Hgb Conc 31.5 g/dL Normal 31.4-35.9 [facility] Comment on above: Performed By: #### Y CHGRA #### [facility] (DEFAULT) [address] [place] [address] 65117 Platelet mean volume (Bld) [Entitic vol] 9.7 fL Normal 8.5-12.2 [facility] Comment on above: Performed By: #### Y CHGRA #### [facility] (DEFAULT) [address] [place] [address] 24219 Platelets (Bld) [#/Vol] 270 10*3/uL Normal 150-393 [facility] Comment on above: Performed By: #### Y CHGRA #### [facility] (DEFAULT) [address] [place] [address] 85542 RBC (Bld) [#/Vol] 3.83 10*6/uL Low 3.91-5.04 [facility] Comment on above: Performed By: #### Y CHGRA #### [facility] (DEFAULT) [address] [place] [address] 43167 RBC Distribution 13.2 % Normal 10.8-14.9 [facility] Comment on above: Performed By: #### Y CHGRA #### [facility] (DEFAULT) [address] [place] [address] 02374 WBC (Bld) [#/Vol] 13.10 10*3/uL High 3.99-11.19 [facility] Comment on above: Performed By: #### Y CHGRA #### [facility] (DEFAULT) [address] [place] [address] 94316 Erythrocyte distribution width (RBC) [Ratio] 13.2 % 10.8 - 14.9 % [facility] Hematocrit (Bld) [Volume fraction] 33.0 % Low 34.9 - 44.3 % [facility] Hemoglobin (Bld) [Mass/Vol] 10.4 g/dL Low 11.4 - 15.2 g/dL [facility] Interpretation and review of laboratory results Abnormal [facility] MCH (RBC) [Entitic mass] 27.2 pg 25.9 - 33.9 pg [facility] MCHC (RBC) [Mass/Vol] 31.5 g/dL 31.4 - 35.9 g/dL [facility] MCV (RBC) [Entitic vol] 86.2 fL 79.6 - 97.7 fL [facility] Platelet mean volume (Bld) [Entitic vol] 9.7 fL 8.5 - 12.2 fL [facility] Platelets (Bld) [#/Vol] 270 10*3/uL 150 - 393 K/uL [facility] RBC (Bld) [#/Vol] 3.83 10*6/uL Low [facility] WBC (Bld) [#/Vol] 13.10 10*3/uL High 3.99 - 11 .19 K/uL [facility] CHEM 7 (LYTES,BUN,CREA,GLUC) on 05-24-2022 Anion gap [Moles/Vol] 10 mmol/L Normal 7-17 [facility] Comment on above: Performed By: #### C A, IPB, CHM7, MGO, HFP #### [facility] (DEFAULT) [address] [place] [address] 43491 Chloride [Moles/Vol] 105 mmol/L Normal 98-108 [facility] Comment on above: Performed By: #### C A, IPB, CHM7, MGO, HFP #### [facility] (DEFAULT) [address] [place] [address] 21868 CO2 [Moles/Vol] 24 mmol/L Normal 21-31 [facility] Comment on above: Performed By: #### C A, IPB, CHM7, MGO, HFP #### [facility] (DEFAULT) [address] [place] [address] 05635 Creatinine [Mass/Vol] 0.51 mg/dL Normal 0.50-1.20 [facility] Comment on above: Performed By: #### C A, IPB, CHM7, MGO, HFP #### [facility] (DEFAULT) [address] [place] [address] 50468 eGFR, CKD-EPI, Female > Normal >=60 [facility] Comment on above: Result Comment: Repo rted eGFR is based on the CKD-EPI 2020 equation using creatinine, age, and sex. Performed By: #### C A, IPB, CHM7, MGO, HFP #### [facility] (DEFAULT) [address] [place] [address] 42604 Glucose [Mass/Vol] 121 mg/dL High 70-99 [facility] Comment on above: Performed By: #### C A, IPB, CHM7, MGO, HFP #### [facility] (DEFAULT) [address] [place] [address] 25632 Osmolality [Osmolality] 281 mosm/kg Normal 278-305 [facility] Comment on above: Performed By: #### C A, IPB, CHM7, MGO, HFP #### [facility] (DEFAULT) [address] [place] [address] 80484 Potassium [Moles/Vol] 4.1 mmol/L Normal 3.5-5.0 [facility] Comment on above: Performed By: #### C A, IPB, CHM7, MGO, HFP #### [facility] (DEFAULT) [address] [place] [address] 22734 Sodium [Moles/Vol] 135 mmol/L Normal 135-145 [facility] Comment on above: Performed By: #### C A, IPB, CHM7, MGO, HFP #### [facility] (DEFAULT) [address] [place] [address] 48686 Urea nitrogen [Mass/Vol] 2 mg/dL Low 7-25 [facility] Comment on above: Performed By: #### C A, IPB, CHM7, MGO, HFP #### [facility] (DEFAULT) [address] [place] [address] 31843 Urea nitrogen/Creatinine [Mass ratio] 4 mg/mg Normal [facility] Comment on above: Performed By: #### RODRIGO Rangel CHM7, SYBIL, PRECIOUS #### [facility] (DEFAULT) [address] [place] [address] Anion gap [Moles/Vol] 10 mmol/L 7 - 17 mmol/L [facility] Chloride [Moles/Vol] 105 mmol/L 98 - 10 8 mmol/L [facility] CO2 [Moles/Vol] 24 mmol/L 21 - 31 mmol/L [facility] Creatinine [Mass/Vol] 0.51 mg/dL 0.50 - 1.20 mg/dL [facility] GFR/1.73 sq M.predicted CKD-EPI (S/P/Bld) [Vol rate/Area] - PINF [facility] Comment on above: Reported eGFR is bas ed on the CKD-EPI 2020 equation using creatinine, age, and sex. Glucose [Mass/Vol] 121 mg/dL High 70 - 99 mg/dL [facility] Osmolality Calc [Osmolality] 281 [facility] Potassium [Moles/Vol] 4.1 mmol/L 3.5 - 5.0 mmol/L [facility] Sodium [Moles/Vol] 135 mmol/L 135 - 145 mmol/L [facility] Urea nitrogen [Mass/Vol] 2 mg/dL Low 7 - 25 mg/dL [facility] Urea nitrogen/Creatinine [Mass ratio] 4 mg/mg [facility] MAGNESIUMon 05-24-2022 Magnesium [Mass/Vol] 1.7 mg/dL Normal 1.6-2.6 [facility] Comment on above: Performed By: #### RODRIGO Rangel CHM7, SYBIL, HFP #### [facility] (DEFAULT) [address] [place] [address] Interpretation and review of laboratory results Normal [facility] Magnesium [Mass/Vol] 1.7 mg/dL 1.6 - 2 .6 mg/dL [facility] No Panel Informationon 05-24 Interpretation and review of laboratory results Abnormal [facility] PHOSPHATE, INORGANICon 05-24 Phosphorous 2.1 mg/dL Low 2.2-4.6 [facility] Comment on above: Performed By: #### C A, IPB, CHM7, MGO, HFP #### [facility] (DEFAULT) [address] [place] [address] 96834 Phosphate [Mass/Vol] 2.1 mg/dL Low 2.2 - 4 .6 mg/dL [facility] CALCIUMon 05-23-2022 Calcium [Mass/Vol] 8.0 mg/dL Low 8.6-10.5 [facility] Comment on above: Performed By: #### C A, IPB, CHM7, MGO #### [facility] (DEFAULT) [address] [place] [address] 36748 Calcium [Mass/Vol] 8.0 mg/dL Low 8.6 - 10. 5 mg/dL [facility] Interpretation and review of laboratory results Abnormal [facility] CBC,PLATELETSon 05-23-2022 Hematocrit (Bld) [Volume fraction] 38.4 % Normal 34.9-44.3 [facility] Comment on above: Performed By: #### Y CHGRA #### [facility] (DEFAULT) [address] [place] [address] 13075 Hemoglobin (Bld) [Mass/Vol] 12.3 g/dL Normal 11.4-15.2 [facility] Comment on above: Performed By: #### Y CHGRA #### [facility] (DEFAULT) [address] [place] [address] 48378 MCV (RBC) [Entitic vol] 83.7 fL Normal 79.6-97.7 [facility] Comment on above: Performed By: #### Y CHGRA #### [facility] (DEFAULT) [address] [place] [address] 01615 Mean Cell Hgb 26.8 pg Normal 25.9-33.9 [facility] Comment on above: Performed By: #### Y CHGRA #### [facility] (DEFAULT) [address] [address] Mean Cell Hgb Conc 32.0 g/dL Normal 31.4-35.9 [facility] Comment on above: Performed By: #### Y CHGRA #### [facility] (DEFAULT) [address] [address] Platelet mean volume (Bld) [Entitic vol] 9.6 fL Normal 8.5-12.2 [facility] Comment on above: Performed By: #### Y CHGRA #### [facility] (DEFAULT) [address] [address] Platelets (Bld) [#/Vol] 354 10*3/uL Normal 150-393 [facility] Comment on above: Performed By: #### Y CHGRA #### [facility] (DEFAULT) [address] [address] RBC (Bld) [#/Vol] 4.59 10*6/uL Normal 3.91-5.04 [facility] Comment on above: Performed By: #### Y CHGRA #### [facility] (DEFAULT) [address] [address]286 RBC Distribution 13.0 % Normal 10.8-14.9 [facility] Comment on above: Performed By: #### Y CHGRA #### [facility] (DEFAULT) [address] [address]21 WBC (Bld) [#/Vol] 12.80 10*3/uL High 3.99-11.19 [facility] Comment on above: Performed By: #### Y CHGRA #### [facility] (DEFAULT) [address] [address] Erythrocyte distribution width (RBC) [Ratio] 13.0 % 10.8 - 14.9 % [facility] Hematocrit (Bld) [Volume fraction] 38.4 % 34.9 - 44.3 % [facility] Hemoglobin (Bld) [Mass/Vol] 12.3 g/dL 11.4 - 15.2 g/dL [facility] Interpretation and review of laboratory results Abnormal [facility] MCH (RBC) [Entitic mass] 26.8 pg 25.9 - 33.9 pg [facility] MCHC (RBC) [Mass/Vol] 32.0 g/dL 31.4 - 35.9 g/dL [facility] MCV (RBC) [Entitic vol] 83.7 fL 79.6 - 97.7 fL [facility] Platelet mean volume (Bld) [Entitic vol] 9.6 fL 8.5 - 12.2 fL [facility] Platelets (Bld) [#/Vol] 354 10*3/uL 150 - 393 K/uL [facility] RBC (Bld) [#/Vol] 4.59 10*6/uL [facility] WBC (Bld) [#/Vol] 12.80 10*3/uL High 3.99 - 11 .19 K/uL [facility] CHEM 7 (LYTES,BUN,CREA,GLUC) on 05-23-2022 Anion gap [Moles/Vol] 13 mmol/L Normal 7-17 [facility] Comment on above: Performed By: #### RODRIGO Rangel CHM7, MGO #### [facility] (DEFAULT) [address] [address] Chloride [Moles/Vol] 103 mmol/L Normal 98-108 [facility] Comment on above: Performed By: #### RODRIGO Rangel CHM7, MGO #### [facility] (DEFAULT) [address] [address] CO2 [Moles/Vol] 24 mmol/L Normal 21-31 [facility] Comment on above: Performed By: #### RODRIGO Rangel CHM7, MGO #### [facility] (DEFAULT) [address] [place] [address] 37577 Creatinine [Mass/Vol] 0.68 mg/dL Normal 0.50-1.20 [facility] Comment on above: Performed By: #### RODRIGO Rangel CHM7, MGO #### [facility] (DEFAULT) [address] [place] [address] 39044 eGFR, CKD-EPI, Female > Normal >=60 [facility] Comment on above: Result Comment: Repo rted eGFR is based on the CKD-EPI 2020 equation using creatinine, age, and sex. Performed By: #### RODRIGO Rangel CHM7, MGO #### [facility] (DEFAULT) [address] [place] [address] 19123 Glucose [Mass/Vol] 148 mg/dL High 70-99 [facility] Comment on above: Performed By: #### RODRIGO Rangel CHM7, MGO #### [facility] (DEFAULT) [address] [place] [address] 40120 Osmolality [Osmolality] 285 mosm/kg Normal 278-305 [facility] Comment on above: Performed By: #### RODRIGO Rangel, CHM7, MGO #### [facility] (DEFAULT) [address] [place] [address] 23435 Potassium [Moles/Vol] 4.9 mmol/L Normal 3.5-5.0 [facility] Comment on above: Performed By: #### RODRIGO Rangel, CHM7, MGO #### [facility] (DEFAULT) [address] [place] [address] 54212 Sodium [Moles/Vol] 135 mmol/L Normal 135-145 [facility] Comment on above: Performed By: #### RODRIGO Rangel, CHM7, MGO #### [facility] (DEFAULT) [address] [place] [address] 06031 Urea nitrogen [Mass/Vol] 4 mg/dL Low 7-25 [facility] Comment on above: Performed By: #### C Danielle, RODRIGO, CHM7, MGO #### [facility] (DEFAULT) [address] [place] [address] Urea nitrogen/Creatinine [Mass ratio] 6 mg/mg Normal [facility] Comment on above: Performed By: #### C Danielle, IPB, CHM7, MGO #### [facility] (DEFAULT) [address] [place] [address] CHEM 7 (LYTES,BUN,CREA,GLUC) Ordered By: Shraddha Munguia on 05-23-2022 Anion gap [Moles/Vol] 13 mmol/L 7 - 17 mmol/L [facility] Chloride [Moles/Vol] 103 mmol/L 98 - 10 8 mmol/L [facility] CO2 [Moles/Vol] 24 mmol/L 21 - 31 mmol/L [facility] Creatinine [Mass/Vol] 0.68 mg/dL 0.50 - 1.20 mg/dL [facility] GFR/1.73 sq M.predicted CKD-EPI (S/P/Bld) [Vol rate/Area] [facility] Comment on above: Reported eGFR is bas ed on the CKD-EPI 2020 equation using creatinine, age, and sex. Glucose [Mass/Vol] 148 mg/dL High 70 - 99 mg/dL [facility] Interpretation and review of laboratory results Abnormal [facility] Osmolality Calc [Osmolality] 285 [facility] Potassium [Moles/Vol] 4.9 mmol/L 3.5 - 5.0 mmol/L [facility] Sodium [Moles/Vol] 135 mmol/L 135 - 145 mmol/L [facility] Urea nitrogen [Mass/Vol] 4 mg/dL Low 7 - 25 mg/dL [facility] Urea nitrogen/Creatinine [Mass ratio] 6 mg/mg [facility] MAGNESIUMon 05-23-2022 Magnesium [Mass/Vol] 2.5 mg/dL Normal 1.6-2.6 [facility] Comment on above: Performed By: #### RODRIGO Rangel, HUBERT, MGO #### [facility] (DEFAULT) [address] [place] [address] 07035 Magnesium [Mass/Vol] 2.5 mg/dL 1.6 - 2 .6 mg/dL [facility] No Panel Informationon 05-23 Interpretation and review of laboratory results Normal [facility] PHOSPHATE, INORGANICon 05-23 Phosphorous 2.7 mg/dL Normal 2.2-4.6 [facility] Comment on above: Performed By: #### RODRIGO Rangel, HUBERT, MGO #### [facility] (DEFAULT) [address] [place] [address] 72175 Phosphate [Mass/Vol] 2.7 mg/dL 2.2 - 4 .6 mg/dL [facility] BETA HCG, URINE (POC DEVICE) on 05-22-2022 Beta HCG ( test) Ql (U) Negative Negative [facility] Interpretation and review of laboratory results Normal [facility] Test performed at address of the patient encounter. [facility] CALCIUMon 05-22-2022 Calcium [Mass/Vol] 7.8 mg/dL Low 8.6-10.5 [facility] Comment on above: Performed By: #### Dayday Santos, RODRIGO, MELVINMRenee, MGO, HFP #### [facility] (DEFAULT) [address] [place] [address] 93047 Calcium [Mass/Vol] 7.8 mg/dL Low 8.6 - 10. 5 mg/dL [facility] CBC,PLATELETSon 05-22-2022 Hematocrit (Bld) [Volume fraction] 37.0 % Normal 34.9-44.3 [facility] Comment on above: Performed By: #### Y CHGRA #### [facility] (DEFAULT) [address] [place] [address] 04245 Hemoglobin (Bld) [Mass/Vol] 12.0 g/dL Normal 11.4-15.2 [facility] Comment on above: Performed By: #### Y CHGRA #### [facility] (DEFAULT) [address] [place] [address] 42977 MCV (RBC) [Entitic vol] 81.0 fL Normal 79.6-97.7 [facility] Comment on above: Performed By: #### Y CHGRA #### [facility] (DEFAULT) [address] [place] [address] 67859 Mean Cell Hgb 26.3 pg Normal 25.9-33.9 [facility] Comment on above: Performed By: #### Y CHGRA #### [facility] (DEFAULT) [address] [address] Mean Cell Hgb Conc 32.4 g/dL Normal 31.4-35.9 [facility] Comment on above: Performed By: #### Y CHGRA #### [facility] (DEFAULT) [address] [place] [address] 75659 Platelet mean volume (Bld) [Entitic vol] 9.5 fL Normal 8.5-12.2 [facility] Comment on above: Performed By: #### Y CHGRA #### [facility] (DEFAULT) [address] [address] Platelets (Bld) [#/Vol] 350 10*3/uL Normal 150-393 [facility] Comment on above: Performed By: #### Y CHGRA #### [facility] (DEFAULT) [address] [address] RBC (Bld) [#/Vol] 4.57 10*6/uL Normal 3.91-5.04 [facility] Comment on above: Performed By: #### Y CHGRA #### [facility] (DEFAULT) [address] [address] RBC Distribution 12.7 % Normal 10.8-14.9 [facility] Comment on above: Performed By: #### Y CHGRA #### [facility] (DEFAULT) [address] [place] [address] 45681 WBC (Bld) [#/Vol] 17.70 10*3/uL High 3.99-11.19 [facility] Comment on above: Performed By: #### Y CHGRA #### [facility] (DEFAULT) [address] [place] [address] 34186 Erythrocyte distribution width (RBC) [Ratio] 12.7 % 10.8 - 14.9 % [facility] Hematocrit (Bld) [Volume fraction] 37.0 % 34.9 - 44.3 % [facility] Hemoglobin (Bld) [Mass/Vol] 12.0 g/dL 11.4 - 15.2 g/dL [facility] Interpretation and review of laboratory results Abnormal [facility] MCH (RBC) [Entitic mass] 26.3 pg 25.9 - 33.9 pg [facility] MCHC (RBC) [Mass/Vol] 32.4 g/dL 31.4 - 35.9 g/dL [facility] MCV (RBC) [Entitic vol] 81.0 fL 79.6 - 97.7 fL [facility] Platelet mean volume (Bld) [Entitic vol] 9.5 fL 8.5 - 12.2 fL [facility] Platelets (Bld) [#/Vol] 350 10*3/uL 150 - 393 K/uL [facility] RBC (Bld) [#/Vol] 4.57 10*6/uL [facility] WBC (Bld) [#/Vol] 17.70 10*3/uL High 3.99 - 11 .19 K/uL [facility] CHEM 7 (LYTES,BUN,CREA,GLUC) on 05-22-2022 Anion gap [Moles/Vol] 16 mmol/L Normal -17 [facility] Comment on above: Performed By: #### C Danielle, RODRIGO, MELVINM7, MGO, HFP #### [facility] (DEFAULT) [address] [place] [address] 37506 Chloride [Moles/Vol] 103 mmol/L Normal 98-108 [facility] Comment on above: Performed By: #### C A, IPB, CHM7, MGO, HFP #### [facility] (DEFAULT) [address] [place] [address] 89791 CO2 [Moles/Vol] 21 mmol/L Normal 21-31 [facility] Comment on above: Performed By: #### C A, IPB, CHM7, MGO, HFP #### [facility] (DEFAULT) [address] [place] [address] 46525 Creatinine [Mass/Vol] 0.56 mg/dL Normal 0.50-1.20 [facility] Comment on above: Performed By: #### C A, IPB, CHM7, MGO, HFP #### [facility] (DEFAULT) [address] [place] [address] 98451 eGFR, CKD-EPI, Female > Normal >=60 [facility] Comment on above: Result Comment: Repo rted eGFR is based on the CKD-EPI 2020 equation using creatinine, age, and sex. Performed By: #### C A, IPB, CHM7, MGO, HFP #### [facility] (DEFAULT) [address] [place] [address] 20763 Glucose [Mass/Vol] 133 mg/dL High 70-99 [facility] Comment on above: Performed By: #### C A, IPB, CHM7, MGO, HFP #### [facility] (DEFAULT) [address] [place] [address] 11234 Osmolality [Osmolality] 285 mosm/kg Normal 278-305 [facility] Comment on above: Performed By: #### C A, IPB, CHM7, MGO, HFP #### [facility] (DEFAULT) [address] [place] [address] 70766 Potassium [Moles/Vol] 3.9 mmol/L Normal 3.5-5.0 [facility] Comment on above: Performed By: #### C Danielle, IPB, CHM7, MGO, HFP #### [facility] (DEFAULT) [address] [place] [address] 69030 Sodium [Moles/Vol] 136 mmol/L Normal 135-145 [facility] Comment on above: Performed By: #### Dayday Santos, IPB, CHM7, MGO, HFP #### [facility] (DEFAULT) [address] [place] [address] 56282 Urea nitrogen [Mass/Vol] 6 mg/dL Low 7-25 [facility] Comment on above: Performed By: #### Dayday A, IPB, CHM7, MGO, HFP #### [facility] (DEFAULT) [address] [place] [address] 01844 Urea nitrogen/Creatinine [Mass ratio] 11 mg/mg Normal [facility] Comment on above: Performed By: #### C Danielle, IPB, CHM7, MGO, HFP #### [facility] (DEFAULT) [address] [place] [address] 57605 Anion gap [Moles/Vol] 16 mmol/L 7 - 17 mmol/L [facility] Chloride [Moles/Vol] 103 mmol/L 98 - 10 8 mmol/L [facility] CO2 [Moles/Vol] 21 mmol/L 21 - 31 mmol/L [facility] Creatinine [Mass/Vol] 0.56 mg/dL 0.50 - 1.20 mg/dL [facility] GFR/1.73 sq M.predicted CKD-EPI (S/P/Bld) [Vol rate/Area] - [facility] Comment on above: Reported eGFR is bas ed on the CKD-EPI 2020 equation using creatinine, age, and sex. Glucose [Mass/Vol] 133 mg/dL High 70 - 99 mg/dL [facility] Osmolality Calc [Osmolality] 285 [facility] Potassium [Moles/Vol] 3.9 mmol/L 3.5 - 5.0 mmol/L [facility] Sodium [Moles/Vol] 136 mmol/L 135 - 145 mmol/L [facility] Urea nitrogen [Mass/Vol] 6 mg/dL Low 7 - 25 mg/dL [facility] Urea nitrogen/Creatinine [Mass ratio] 11 mg/mg [facility] CONTINUOUS CARDIAC MONITORIN G STRIPon 05-22-2022 [facility] CONTINUOUS CARDIAC MONITORIN G STRIPOrdered By: Unassigned Pacs on 05-22-2022 [facility] Work Phone: HEPATIC FUNCTION PANELon Albumin [Mass/Vol] 3.8 g/dL Normal 3.5-5.0 [facility] Comment on above: Performed By: #### Dayday Santos, IPB, CHM7, MGO, HFP #### [facility] (DEFAULT) [address] [place] [address] 82526 ALP [Catalytic activity/Vol] 54 U/L Normal 32-126 [facility] Comment on above: Performed By: #### Dayday Santos, IPB, CHM7, MGO, HFP #### [facility] (DEFAULT) [address] [place] [address] 57998 ALT [Catalytic activity/Vol] 17 U/L Normal 9-48 [facility] Comment on above: Performed By: #### Dayday Santos, IPB, CHM7, MGO, HFP #### [facility] (DEFAULT) [address] [place] [address] AST [Catalytic activity/Vol] 23 U/L Normal 10-39 [facility] Comment on above: Performed By: #### Dayday Santos, IPB, CHM7, MGO, HFP #### [facility] (DEFAULT) [address] [place] [address] 67417 Bilirubin [Mass/Vol] 0.5 mg/dL Normal <1.5 [facility] Comment on above: Performed By: #### Dayday Santos, IPB, CHM7, MGO, HFP #### [facility] (DEFAULT) [address] [place] [address] 04257 Bilirubin.indirect [Mass/Vol] 0.2 mg/dL Normal <0.3 [facility] Comment on above: Performed By: #### Dayday Santos, IPB, CHM7, MGO, HFP #### [facility] (DEFAULT) [address] [place] [address] 73136 Protein [Mass/Vol] 6.3 g/dL Low 6.4-8.3 [facility] Comment on above: Performed By: #### SHANEKA RangelB, CHM7, MGO, HFP #### [facility] (DEFAULT) [address] [place] [address] 64065 Albumin [Mass/Vol] 3.8 g/dL 3.5 - 5.0 g/dL [facility] ALP [Catalytic activity/Vol] 54 U/L 32 - 126 U/L [facility] ALT [Catalytic activity/Vol] 17 U/L 9 - 48 U/L [facility] AST [Catalytic activity/Vol] 23 U/L 10 - 39 U/L [facility] Bilirubin [Mass/Vol] 0.5 mg/dL [facility] - 1.5 mg/dL [facility] Bilirubin.direct [Mass/Vol] 0.2 mg/dL NINF - 0.3 mg/dL [facility] Protein [Mass/Vol] 6.3 g/dL Low 6.4 - 8.3 g/dL [facility] MAGNESIUMon 05-22-2022 Magnesium [Mass/Vol] 1.4 mg/dL Low 1.6-2.6 [facility] Comment on above: Performed By: #### C Danielle, IPB, CHM7, MGO, HFP #### [facility] (DEFAULT) [address] [place] [address] 77359 Magnesium [Mass/Vol] 1.4 mg/dL Low 1.6 - 2 .6 mg/dL [facility] No Panel Informationon 05-22 ABO/RH(D) TYPE Positive [facility] BLOOD COMPONENT TYPE Red Cells, Leukoreduced [facility] EXPIRATION DATE [facility] Product ABO/RH(D) Positive [facility] Product ABO/RH(D) NUMBER [id number] [facility] PRODUCT CODE [id number] [facility] UNIT STATUS released [facility] Interpretation and review of laboratory results Abnormal [facility] PHOSPHATE, INORGANICon 05-22 Phosphorous 3.3 mg/dL Normal 2.2-4.6 [facility] Comment on above: Performed By: #### C A, IPB, CHM7, MGO, HFP #### [facility] (DEFAULT) [address] [place] [address] Interpretation and review of laboratory results Normal [facility] Phosphate [Mass/Vol] 3.3 mg/dL 2.2 - 4 .6 mg/dL [facility] POC ARTERIAL BLOOD GASon Base excess Calc (Bld) [Moles/Vol] -2.1000 mmol/L -3.0 - 3.0 mmol/L [facility] Calcium.ionized (Bld) [Mass/Vol] 4.22 mg/dL Low 4.60 - 5.30 mg/dL [facility] CO2 (Bld) [Partial pressure] 33 mm[Hg] [facility] Glucose [Mass/Vol] 127 mg/dL High 70 - 99 mg/dL [facility] HCO3 (Bld) [Moles/Vol] 22 mmol/L 22 - 28 mmol/L [facility] Hematocrit (Bld) [Volume fraction] 34.5 % 34.2 - 45.6 % [facility] Hemoglobin (Bld) [Mass/Vol] 11.3 g/dL Low 11.4 - 15.2 g/dL [facility] Interpretation and review of laboratory results Abnormal [facility] Lactate [Moles/Vol] 1.2 mmol/L 0.5 - 1. 6 mmol/L [facility] Oxygen (Bld) [Partial pressure] 230 mm[Hg] High [facility] Oxygen saturation in Blood 99 % [facility] pH (Bld) 7.42 [pH] 7.35 - 7.45 [facility] Potassium [Moles/Vol] 3.6 mmol/L 3.5 - 5.0 mmol/L [facility] Sodium [Moles/Vol] 137 mmol/L 135 - 145 mmol/L [facility] Specimen source Nom (Unsp spec) Arterial [facility] Test performed at address of the patient encounter. [facility] Base excess Calc (Bld) [Moles/Vol] 0.0 mmol/L -3.0 - 3.0 mmol/L [facility] Calcium.ionized (Bld) [Mass/Vol] 4.56 mg/dL Low 4.60 - 5.30 mg/dL [facility] CO2 (Bld) [Partial pressure] 38 mm[Hg] [facility] Glucose [Mass/Vol] 138 mg/dL High 70 - 99 mg/dL [facility] HCO3 (Bld) [Moles/Vol] 24 mmol/L 22 - 28 mmol/L [facility] Hematocrit (Bld) [Volume fraction] 34.7 % 34.2 - 45.6 % [facility] Hemoglobin (Bld) [Mass/Vol] 11.3 g/dL Low 11.4 - 15.2 g/dL [facility] Interpretation and review of laboratory results Abnormal [facility] Oxygen (Bld) [Partial pressure] 197 mm[Hg] High [facility] Oxygen saturation in Blood 99 % [facility] pH (Bld) 7.42 [pH] 7.35 - 7.45 [facility] Potassium [Moles/Vol] 3.4 mmol/L Low 3.5 - 5.0 mmol/L [facility] Sodium [Moles/Vol] 138 mmol/L 135 - 145 mmol/L [facility] Specimen source Nom (Unsp spec) Arterial [facility] Test performed at address of the patient encounter. [facility] PREPARE TO TRANSFUSE OR RED BLOOD CELLSon 05-22-2022 UNIT NUMBER [id number] [facility] UNIT NUMBER [id number] [facility] PROTIME-INRon 05-22-2022 INR Coag (PPP) [Relative time] 1.2 {INR} High 0.9-1.1 [facility] Comment on above: Performed By: #### C A, IPB, CHM7, MGO, HFP #### [facility] (DEFAULT) [address] [place] [address] 72646 PT Coag (PPP) [Time] 14.8 s High 11.9-14.2 [facility] Comment on above: Performed By: #### C A, IPB, CHM7, MGO, HFP #### [facility] (DEFAULT) [address] [place] [address] 35537 INR Coag (Bld) [Relative time] 1.2 {INR} High 0.9 - 1.1 [facility] Interpretation and review of laboratory results Abnormal [facility] PT Coag (PPP) [Time] 14.8 s High [facility] SURG PATH REQUESTon 05-22-20 Case Report Normal [facility] Comment on above: Result Comment: Surg ical Pathology Report Case: [id number] Authorizing Provider: Suman Baker MD, PhD Collected: 05/22/2022 08:31 AM [facility] Received: 05/25/2022 08:10 AM Pathologist: WALI [...] C RODRIGO Santos CHM7, MGO #### [facility] (DEFAULT) [address] [place] [address] Clinical History 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 Normal [facility] Comment on above: Performed By: #### C RODRIGO Santos CHM7, MGO #### [facility] (DEFAULT) [address] [place] [address] Gross Description Normal [facility] Comment [...] the distal 4 cm. The mucosa is sarmiento-pink with a normal folding pattern. The mesentery [...] and granular lesion Lab Use Only: JobID [id number] Lab Use Only: JobID [id number] (lmp) Grosser for this case was: Pedro Jacobsen For Immediate Release to Patient's MyChart? Yes Performed By: #### C A, IPB, CHM7, MGO #### [facility] (DEFAULT) [address] [place] [address] Microscopic Description A microscopic examination was performed. Normal [facility] Comment on above: Performed By: #### C A, IPB, CHM7, MGO #### [facility] (DEFAULT) [address] [place] [address] Pathologic Diagnosis Normal [facility] Comment on above: Result [...] developed by and are performed at the [facility], [address] [place] [address], [address], [place] [address]. All tests reported here, except those addressing [...] #### C Danielle, SHANEKAB, CHM7, MGO #### [facility] (DEFAULT) [address] [place] [address] 70281 TYPE AND SCREENon 05-22-2022 ABO/RH(D) TYPE Positive Normal [facility] Comment on above: Performed By: #### Dayday Santos, IPB, CHM7, MGO #### [facility] (DEFAULT) [address] [place] [address] 61966 ABO/RH(D) TYPE Positive [facility] XR ABDOMEN 1 VIEWon 05-22-20 XR ABDOMEN [...] the nasogastric tube in the stomach. Normal [facility] XR Abdomen Single viewon IMPRESSION: [...] of the nasogastric tube in the stomach. [facility] Radiology Study observation (narrative) [facility] XR Abdomen Single viewOrdere d By: Debora Burciaga on 05-22-2022 [facility] Work Phone: PREG HCG QUALon 04-08-2022 , QUAL Negative Normal NEGATIVE [facility] Comment on above: Performed By: #### P REG #### [facility] [address] [place], [place] [address] Dr. Esthela Stevens Covid-19 PCR ([facility])on 03-19 SARS-CoV-2 (COVID-19) RNA JORGE LUIS+probe Ql (Unsp spec) Not detected Normal NOT DETECTED [facility] Comment on above: Result Comment: This test is not yet approved or cleared by the [place] FDA. When there are no FDA-approved or cleared tests available, and other criteria are met, FDA can make tests available under an emergency access mechanism called an Emergency Use Authorization (EUA). The EUA for this test is supported by the [place] of Health and Human Service's (HHS's) declaration [...] By: #### L IVER, LDH, BMP #### [facility] [address] [place], [place] [address] Abdomen and Pelvis [...] error, please notify the sender immediately at [phone] and permanently delete the original report and [...] acute or suspicious osseous lesion. RADIOLOGY Avinash Miller MD - 04/01/2022 EXAM: CT ABDOMEN/PELVIS WITH [...] error, please notify the sender immediately at [phone] and permanently delete the original report and destroy any copies or printouts. [facility] CT Abdomen and Pelvis W cont rast IVOrdered By: Avinash Miller on 04-01-[address] [facility] [address] Chest W contrast Jason [...] 1. No evidence for intrathoracic metastatic disease [facility] CT Chest W contrast IVOrdere d By: Yovany Bills on 03-31-2022 [facility] Work Phone: No Panel Informationon 03-31 Radiology Study observation (narrative) [facility] CBC AND ELECTRONIC DIFFon Basophils (Bld) [#/Vol] 0.05 10*3/uL 0.00 - 0.15 K/uL [facility] Basophils/100 WBC (Bld) 0.6 % [facility] Differential cell count method Nom (Bld) Electronic Differential [facility] Eosinophils (Bld) [#/Vol] 0.07 10*3/uL 0.00 - 0.42 K/uL [facility] Eosinophils/100 WBC (Bld) 0.8 % [facility] Erythrocyte distribution width (RBC) [Ratio] 13.4 % 10.8 - 14.9 % [facility] Hematocrit (Bld) [Volume fraction] 37.9 % 34.9 - 44.3 % [facility] Hemoglobin (Bld) [Mass/Vol] 11.9 g/dL 11.4 - 15.2 g/dL [facility] Immature granulocytes (Bld) [#/Vol] 0.04 10*3/uL <=0.08 [facility] Immature granulocytes/100 WBC (Bld) 0.5 % [facility] Interpretation and review of laboratory results Abnormal [facility] Lymphocytes (Bld) [#/Vol] 2.33 10*3/uL 1.16 - 3.51 K/uL [facility] Lymphocytes/100 WBC (Bld) 27.4 % [facility] MCH (RBC) [Entitic mass] 26.3 pg 25.9 - 33.9 pg [facility] MCHC (RBC) [Mass/Vol] 31.4 g/dL 31.4 - 35.9 g/dL [facility] MCV (RBC) [Entitic vol] 83.8 fL 79.6 - 97.7 fL [facility] Monocytes (Bld) [#/Vol] 0.46 10*3/uL 0.22 - 0.87 K/uL [facility] Monocytes/100 WBC (Bld) 5.4 % [facility] Neutrophils (Bld) [#/Vol] 5.55 10*3/uL 1.64 - 7.28 K/uL [facility] Nucleated RBC/100 WBC (Bld) [Ratio] 0.0 % <=0.2 /100 WBC [facility] Platelet mean volume (Bld) [Entitic vol] 10.0 fL 8.5 - 12.2 fL [facility] Platelets (Bld) [#/Vol] 402 10*3/uL High 150 - 393 K/uL [facility] RBC (Bld) [#/Vol] 4.52 10*6/uL [facility] Segmented neutrophils/100 WBC (Bld) 65.3 % [facility] WBC (Bld) [#/Vol] 8.50 10*3/uL 3.99 - 11. 19 K/uL [facility] COMPREHENSIVE METABOLIC PANE Shamir 03-19-2022 Albumin [Mass/Vol] 4.5 g/dL 3.5 - 5.0 g/dL [facility] ALP [Catalytic activity/Vol] 67 U/L 32 - 126 U/L [facility] ALT [Catalytic activity/Vol] 15 U/L 9 - 48 U/L [facility] Anion gap [Moles/Vol] 16 mmol/L 7 - 17 mmol/L [facility] AST [Catalytic activity/Vol] 14 U/L 10 - 39 U/L [facility] Bilirubin [Mass/Vol] 0.4 mg/dL <1.5 [facility] Calcium [Mass/Vol] 9.8 mg/dL 8.6 - 10. 5 mg/dL [facility] Chloride [Moles/Vol] 100 mmol/L 98 - 10 8 mmol/L [facility] CO2 [Moles/Vol] 27 mmol/L 21 - 31 mmol/L [facility] Creatinine [Mass/Vol] 0.66 mg/dL 0.50 - 1.20 mg/dL [facility] GFR/1.73 sq M.predicted CKD-EPI (S/P/Bld) [Vol rate/Area] >90 >=60 mL/min/1.73m2 [facility] Comment on above: Reported eGFR is bas ed on the CKD-EPI 2020 equation using creatinine, age, and sex. Glucose [Mass/Vol] 73 mg/dL 70 - 99 mg/dL [facility] Osmolality Calc [Osmolality] 287 [facility] Potassium [Moles/Vol] 3.6 mmol/L 3.5 - 5.0 mmol/L [facility] Protein [Mass/Vol] 7.4 g/dL 6.4 - 8.3 g/dL [facility] Sodium [Moles/Vol] 139 mmol/L 135 - 145 mmol/L [facility] Urea nitrogen [Mass/Vol] 10 mg/dL 7 - 25 mg/dL [facility] Urea nitrogen/Creatinine [Mass ratio] 15 mg/mg [facility] PT,INR,PTTon 03-19-2022 aPTT Coag (PPP) [Time] 36.5 s [facility] INR Coag (Bld) [Relative time] 1.2 {INR} [facility] Interpretation and review of laboratory results Abnormal [facility] PT Coag (PPP) [Time] 14.6 s [facility] CBC AUTO DIFFon 02-03-2022 BASO # 0.1 103/ul Normal 0.0-0.1 [facility] Comment on above: Performed By: #### L IVER, LDH, BMP #### [facility] [address] [place] [address] Dr. Esthela Stevens Basophils/100 WBC (Bld) 0.5 % Normal 0.2-2.0 [facility] Comment on above: Performed By: #### L IVER, LDH, BMP #### [facility] [address] [place] [address] Dr. Esthela Stevens EO # 0.1 103/ul Normal 0.0-0.7 [facility] Comment on above: Performed By: #### L IVER, LDH, BMP #### [facility] [address] [place] [address] Dr. Esthela Stevens Eosinophils/100 WBC (Bld) 1.2 % Normal 0.9-7.0 [facility] Comment on above: Performed By: #### L IVER, LDH, BMP #### [facility] [address] [place] [address] Dr. Esthela Stevens Erythrocyte distribution width (RBC) [Ratio] 13.2 % Normal 11.0-15.0 [facility] Comment on above: Performed By: #### L IVER, LDH, BMP #### [facility] [address] [place] [address] Dr. Esthela Stevens Hematocrit (Bld) [Volume fraction] 38.4 % Normal 36.0-48.0 [facility] Comment on above: Performed By: #### L IVER, LDH, BMP #### [facility] [address] [place] [address] Dr. Esthela Stevens Hemoglobin (Bld) [Mass/Vol] 12.2 g/dL Normal 12.0-16.0 [facility] Comment on above: Performed By: #### L IVER, LDH, BMP #### [facility] [address] [place] [address] Dr. Esthela Stevens IG # 0.06 10e3/ul Critically high 0.00-0.03 [facility] Comment on above: Performed By: #### L IVER, LDH, BMP #### [facility] [address] [place] [address] Dr. Esthela Stevens IG % 0.6 % Critically high 0.0-0.5 [facility] Comment on above: Performed By: #### L IVER, LDH, BMP #### [facility] [address] [place] [address] Dr. Esthela Stevens LYMPH # 2.1 103/ul Normal 1.2-3.8 [facility] Comment on above: Performed By: #### L IVER, LDH, BMP #### [facility] [address] [place] [address] Dr. Esthela Stevens Lymphocytes/100 WBC (Bld) 21.7 % Normal 20.5-60.0 [facility] Comment on above: Performed By: #### L IVER, LDH, BMP #### [facility] [address] [place] [address] Dr. Esthela Stevens MANUAL DIFF REQ NO Normal [facility] Comment on above: Performed By: #### L IVER, LDH, BMP #### [facility] [address] [place] [address] Dr. Esthela Stevens MCH (RBC) [Entitic mass] 26.5 pg Critically low 26.7-34.0 [facility] Comment on above: Performed By: #### L IVER, LDH, BMP #### [facility] [address] [place] [address] Dr. Esthela Stevens MCHC (RBC) [Mass/Vol] 31.8 g/dL Normal 29.9-35.2 [facility] Comment on above: Performed By: #### L IVER, LDH, BMP #### [facility] [address] [place] [address] Dr. Esthela Stevens MCV (RBC) [Entitic vol] 83.5 fL Normal 81.0-99.0 [facility] Comment on above: Performed By: #### L IVER, LDH, BMP #### [facility] [address] [place] [address] Dr. Esthela Stevens MONO # 0.7 103/ul Normal 0.3-0.8 [facility] Comment on above: Performed By: #### L IVER, LDH, BMP #### [facility] [address] [place] [address] Dr. Esthela Stevens Monocytes/100 WBC (Bld) 7.5 % Normal 1.7-12.0 [facility] Comment on above: Performed By: #### L IVER, LDH, BMP #### [facility] [address] [place] [address] Dr. Esthela Stevens NEUT # 6.8 103/ul Critically high 1.4-6.5 [facility] Comment on above: Performed By: #### L IVER, LDH, BMP #### [facility] [address] [place] [address] Dr. Esthela Stevens Neutrophils/100 WBC (Bld) 68.5 % Normal 43.0-75.0 [facility] Comment on above: Performed By: #### L IVER, LDH, BMP #### [facility] [address] [place] [address] Dr. Esthela Stevens Platelet mean volume (Bld) [Entitic vol] 9.4 fL Critically low 9.5-13.5 [facility] Comment on above: Performed By: #### L IVER, LDH, BMP #### [facility] [address] [place] [address] [address] Esthela Stevens PLT 403 103/ul Normal 150-450 [facility] Comment on above: Performed By: #### L IVER, LDH, BMP #### [facility] [address] [place] [address] [address] Esthela Stevens RBC 4.60 106/ul Normal 4.20-5.40 [facility] Comment on above: Performed By: #### L IVER, LDH, BMP #### [facility] [address] [place] [address] [address] Esthela Stevens WBC 9.9 103/ul Normal 4.0-11.0 [facility] Comment on above: Performed By: #### L IVER, LDH, BMP #### [facility] [address] [place] [address] ABD/PELV W CONon [...] CAROLYN WALSH Date: 2022-02-03 12:14 Normal [facility] Covid-19 PCR ([facility])on 01-16 SARS-CoV-2 (COVID-19) RNA JORGE LUIS+probe Ql (Unsp spec) Not detected Normal NOT DETECTED [facility] Comment on above: Result Comment: When diagnostic [...] for this test is supported by the Customer Relations Representative of Health and Human Service's declaration that [...] By: #### L IVER, LDH, BMP #### [facility] [address] [place] [address] Dr. Esthela Stevens ER URINE PROFILEon 2 Bilirubin Ql (U) Negative Normal NEGATIVE [facility] Comment on above: Performed By: #### MAKENZIE WALLACE #### [facility] [address] [place] [address] Dr. Esthela Stevens Clarity (U) CLEAR Normal CLEAR [facility] Comment on above: Performed By: #### E MAKENZIE SANCHEZ #### [facility] [address] [place] [address] Dr. Esthela Stevens Color (U) LT. YELLOW Normal YELLOW [facility] Comment on above: Performed By: #### Toñito SANCHEZ UMICRO #### [facility] [address] [place] [address] Dr. Esthela ARGUELLES A micrscopic examination will be performed if indicated. Normal [facility] Comment on above: Performed By: #### E LAURA UMICRO #### [facility] [address] [place] [address] Dr. Esthela Stevens Glucose Ql (U) Negative Normal NEGATIVE [facility] Comment on above: Performed By: #### Toñito SANCHEZ UMICRO #### [facility] [address] [place] [address] Dr. Esthela Stevens Hemoglobin Ql (U) Negative Normal NEGATIVE [facility] Comment on above: Performed By: #### Toñito SANCHEZ UMICRO #### [facility] [address] [place] [address] Dr. Esthela Stevens Ketones Ql (U) Negative Normal NEGATIVE [facility] Comment on above: Performed By: #### Toñito SANCHEZ UMICRO #### [facility] [address] [place] [address] Dr. Esthela Stevens LEUKOCYTES SMALL Abnormal NEGATIVE [facility] Comment on above: Performed By: #### Toñito SANCHEZ UMICRO #### [facility] [address] [place] [address] Dr. Esthela Stevens Nitrite Ql (U) Negative Normal NEGATIVE [facility] Comment on above: Performed By: #### Toñito SANCHEZ, UMICRO #### [facility] [address] [place] [address] Dr. Esthela Stevens pH (U) 7.0 [pH] Normal 5-9 [facility] Comment on above: Performed By: #### E LAURA, UMICRO #### [facility] [address] [place] [address] Dr. Esthela Stevens SPEC GRAVITY 1.015 Normal 1.005-<=1.025 [facility] Comment on above: Performed By: #### E RUR, UMICRO #### [facility] [address] [place] [address] Dr. Esthela Stevens UA PROTEIN Negative Normal NEGATIVE/ TRACE [facility] Comment on above: Performed By: #### E LAURA UMICRO #### [facility] [address] [place] [address] Dr. Esthela Stevens UR MICRO IND INDICATED Normal [facility] Comment on above: Performed By: #### E MERISSA SANCHEZICRO #### [facility] [address] [place] [address] Dr. Esthela Stevens Urobilinogen Qn (U) 0.2 {Emeka'U}/dL Normal 0.2 - 1. 0 [facility] Comment on above: Performed By: #### E ERUM SANCHEZRO #### [facility] [address] [place] [address] Dr. Esthela Stevens LACTATE/LACTIC ACIDon 2021 Lactate [Moles/Vol] 1.3 mmol/L Normal 0.4-1.9 [facility] Comment on above: Performed By: #### P REG #### [facility] [address] [place] [address] Dr. Esthela Stevens LIPASEon 02-03-2022 Lipase [Catalytic activity/Vol] 58.0 U/L Critically low 73.0-393.0 [facility] Comment on above: Performed By: #### L IPA, CMP #### [facility] [address] [place] [address] Dr. Esthela Stevens PREG HCG QUALon 02-03-2022 , QUAL Negative Normal NEGATIVE [facility] Comment on above: Performed By: #### L IVER, LDH, BMP #### [facility] [address] [place] [address] Dr. Esthela Stevens PROF 14(COMP METB)on 022 Albumin [Mass/Vol] 3.8 g/dL Normal 3.4-5.0 [facility] Comment on above: Performed By: #### L IPA, CMP #### [facility] [address] [place] [address] Dr. Esthela Stevens Albumin/Globulin [Mass ratio] 1.0 {ratio} Normal [facility] Comment on above: Performed By: #### L IPA, CMP #### [facility] [address] [place] [address] Dr. Esthela Stevens ALP [Catalytic activity/Vol] 75 U/L Normal 46-116 [facility] Comment on above: Performed By: #### L IPA, CMP #### [facility] [address] [place] [address] Dr. Esthela Stevens ALT [Catalytic activity/Vol] 37 U/L Normal 14-59 [facility] Comment on above: Performed By: #### L IPA, CMP #### [facility] [address] [place] [address] Dr. Esthela Stevens Anion gap [Moles/Vol] 14.0 mmol/L Normal [facility] Comment on above: Performed By: #### L IPA, CMP #### [facility] [address] [place] [address] Dr. Esthela Stevens AST [Catalytic activity/Vol] 14 U/L Critically low 15-37 [facility] Comment on above: Performed By: #### L IPA, CMP #### [facility] [address] [place] [address] Dr. Esthela Stevens Bilirubin [Mass/Vol] 0.2 mg/dL Normal 0.2-1.0 [facility] Comment on above: Performed By: #### L IPA, CMP #### [facility] [address] [place] [address] Dr. Esthela Stevens Calcium [Mass/Vol] 8.9 mg/dL Normal 8.5-10.1 [facility] Comment on above: Performed By: #### L IPA, CMP #### [facility] [address] [place] [address] Dr. Esthela Stevens Chloride [Moles/Vol] 103 mmol/L Normal 98-107 [facility] Comment on above: Performed By: #### L IPA, CMP #### [facility] [address] [place] [address] Dr. Esthela Stevens CO2 [Moles/Vol] 25.2 mmol/L Normal 21.0-32.0 [facility] Comment on above: Performed By: #### L IPA, CMP #### [facility] [address] [place] [address] Dr. Esthela Stevens Creatinine [Mass/Vol] 0.72 mg/dL Normal 0.55-1.02 [facility] Comment on above: Performed By: #### L IPA, CMP #### [facility] [address] [place] [address] Dr. Esthela Stevens EGFR-AF GREENLANDIC >60 Normal >=60 [facility] Comment on above: Performed By: #### L IPA, CMP #### [facility] [address] [place] [address] Dr. Esthela Stevens EGFR-NON AF GREENLANDIC >60 Normal >=60 [facility] Comment on above: Performed By: #### L IPA, CMP #### [facility] [address] [place] [address] Dr. Esthela Stevens Globulin (S) [Mass/Vol] 3.7 g/dL Normal [facility] Comment on above: Performed By: #### L IPA, CMP #### [facility] [address] [place] [address] Dr. Esthela Stevens Glucose [Mass/Vol] 101 mg/dL Normal 74-106 [facility] Comment on above: Performed By: #### L IPA, CMP #### [facility] [address] [place] [address] Dr. Esthela Stevens Potassium [Moles/Vol] 4.2 mmol/L Normal 3.5-5.1 [facility] Comment on above: Performed By: #### L IPA, CMP #### [facility] [address] [place] [address] Dr. Esthela Stevens Protein [Mass/Vol] 7.5 g/dL Normal 6.4-8.2 [facility] Comment on above: Performed By: #### L IPA, CMP #### [facility] [address] [place] [address] Dr. Esthela Stevens Sodium [Moles/Vol] 138 mmol/L Normal 136-145 [facility] Comment on above: Performed By: #### L IPA, CMP #### [facility] [address] [place] [address] Dr. Esthela Stevens Urea nitrogen [Mass/Vol] 11.0 mg/dL Normal 7.0-18.0 [facility] Comment on above: Performed By: #### L IPA, CMP #### [facility] [address] [place] [address] Dr. Esthela Stevens Urea nitrogen/Creatinine [Mass ratio] 15.3 mg/mg Normal [facility] Comment on above: Performed By: #### L IPA, CMP #### [facility] [address] [place] [address] Dr. Etshela Stevens URINE MICROSCOPIC ONLYon BACTERIA NONE SEEN Normal NONE SEEN [facility] Comment on above: Performed By: #### E RUR, UMICRO #### [facility] [address] [place] [address] Dr. Esthela Stevens Bacteria identified Cx Nom (U) NOT INDICATED Normal [facility] Comment on above: Performed By: #### E RUR, UMICRO #### [facility] [address] [place] [address] Dr. Esthela Stevens CAST NONE SEEN Normal NONE SEEN [facility] Comment on above: Performed By: #### E RUR, UMICRO #### [facility] [address] [place] [address] Dr. Esthela Stevens Crystals LM Nom (Urine sed) NONE SEEN Normal NONE SEEN [facility] Comment on above: Performed By: #### E RUR, UMICRO #### [facility] [address] [place] [address] Dr. Esthela Stevens Epithelial cells LM Ql (Urine sed) FEW Abnormal NONE SEEN /RARE [facility] Comment on above: Performed By: #### E RUR, UMICRO #### [facility] [address] [place] [address] Dr. Esthela Stevens MUCOUS NONE SEEN Normal NONE SEEN [facility] Comment on above: Performed By: #### MAKENZIE WALLACE #### [facility] [address] [address] [address] Esthela Stevens RBC 0-2 Normal 0-2 [facility] Comment on above: Performed By: #### ERUM WALLACERO #### [facility] [address] [address] [address] Esthela Stevens WBC 2-5 Abnormal NONE SEEN [facility] Comment on above: Performed By: #### E ERUM SANCHEZRO #### [facility] [address] [address] [address] Esthela Stevens Test, Urineon Beta HCG ( test) Ql (U) Negative [employer] Other Urinalysis - AUTOMATEDon Appearance (U) clear [employer] Other Bilirubin Ql (U) Negative [employer] Other Color (U) yellow [employer] Other Glucose Ql (U) Negative [employer] Other Hemoglobin Ql (U) Negative [employer] Other Ketones Ql (U) 15 [employer] Other Leukocyte esterase Test strip Ql (U) Negative [employer] Other Nitrite Ql (U) Negative [employer] Other pH (U) 7.0 [pH] [employer] Other Protein Ql (U) Negative [employer] Other Specific gravity (U) [Rel density] 1.020 [employer] Other Urobilinogen (U) [Mass/Vol] 0.2 mg/dL [employer] Other Urinalysis - AUTOMATED [employer] Other Urine Cultureon 12-22-2021 Bacteria identified Cx Nom (U) >100,000 colonies/ml mixed bacterial skin contaminants 2 Days PERFORMED BY: [address] [address] PATHOLOGIST FOOD AND NUTRITION TEACHER FELY STODDARD M.D. Normal [facility] Comment on above: Performed By: #### C UU #### [address] Coding Summary.on 02-18-2021 Coding Summary. [id number] Gh0bWw+PGhlYWQ+PE1FV ZZeD62bfLFcdZ9ML7xSB J2DHZMMNBIKDT4BWW8xu TZ5TWgiR6UnosNv GmwzxQEuGT74IKo1WTW2 gXvhAJyfdX1juEXoM7p9 SdMdFS15kR58LVpnFBXk YsG4SpAvlzggdERw Q6dvBtWzmWXpOlj+PHRh YmxlIHdpZHRoPScxMDAl BoCtmFzmYJ6aZb5gGYAy LWNvbGxhcHNlOiBj n1ghWWDoGQauBR7lyCtl J5BhvYK6YTJqk0m2Xv92 dHI+HPXnVAL4kEqcFHgx y608TbYlj9ssSEX3 aVHyEBzsIXT3E11hn9T9 NUMtMEMuHRW3aSO1tA4w sTykqcxfY5SrbIBkEeZ1 FRL5kRIryD8dyZbl wlrnmU0tNfu+E46SQJ5X EKFSPF0YSrp9D2IeRetf dHI+IS17LLIbSS15lRLd xEAsy4bjrGn2NcQu JBKiLIF0nNinWVntr2Ql GCFsS42nrYRuj5D2QNRd bYchmMOmPmTojMD5oO0x XIvtngasu1rsgnok Ufnow4vrql95nU30D95g ISknYJPeDIN3RUFwEJKw yTvthv3exW8lFm2+IDxj s1hxs8ivmGg6EuNj CQZohrMssYxqVUJ5h1Qg Uq72D2HbtYpvl2QyZbf1 dr55yASsi8B5oSB1YKxw BFRcyX9lWSrgSkX3 RROgRoGynE29yCFeIQui Yc9fjQkwyPoqEN8dZAMx rwiwUFRhvJ3mQQOohWTg yVfkJF8qDVYuqzrs l169TnPvVPG7WOWozRMs L4KsuY8uGfSvBKQkMVGt U8WtnOVoDUaqH380VZou XiG6VAVhmySxZ4Yl PVLpgHjtUuL4f5E5Lo4U z3CljvohYNE9UFdcXZJ2 OfTmWrQmTjK7N9GpIpc0 EPGjfCrhKO4mQ2Ih NEAjlqharxmnbOQ8QXPw BUGzmB75yIWyKLxdRo7v f4M3z027KBIzKLKywN34 Nr8niSfhUKAvrWTK jN8wmqxvb3nhzutyBcPg OCObLFn9ICn1TLIkaLlx NeTfUVN5VhG9XXC1yYSr pF6dpXnmwgbqcX4m Oyc+T89twC4kSKB2HRT0 gphrADSoagRiKH40OE57 Z1LsFnbvyZQmlYB+PGRp uhIguXnqGD2gLpFo h6myl3WhXUjsE1NfAOTr CAeoVmz0DIWgDOH9iAL0 zQ5dDYAiJHlby1R0wCZ9 Z1OchuHibv4za3sy EIBlSJvoC12pdNAzv4H9 JQGxtTK9TXIjkKpdUsXc sD20Bnl+QRCtkNgaw7Bn Kxhjm7zgn4edwHs8 IjMwJSIgdmFsaWduPSJ0 i5CxVi84I99aOLtgMUZo CSNlZHWfOZMmvUcpwi2j pN2kUg6+PGNvbCB3 hEM5bX8dNRSjIhB9PGqp L609OvStiYXxPqnbw5wk h4jvqTp5QeMkPKXolkZz qCxeOCT9x1WmHj99 Q58aPNgkSUBbYBEsKQAl HTKpsLxwoi0yvE7xAy5+ DL1ls6wyot22eE54gMM+ YKVcJMS8fMwoXIfl EZIgxX0rWHnqIgF4SBLb VjTgmJ02bMGnBDinPp2p yQuyjAfeCP1sSJNbabsc k122FnJap7qqFAQa sOHxCXpkBBD4P05gd6V6 WSHrNMQkMYH3jDV8gQ1z bGlnbjogbGVmdDsgdmVy nWihPEebREbjA300 IHRvcDsnPlBhdGllbnQg FbZwRPl7B8HgAlc6DXHz rTqmJW7cdHKmQXouMv1y yQqntPgyAQ7qFFSi cyouq815NoVub0yyGOWo fNQhIQffEDX9C87ni9Y9 YCPpSICwFQT1dWQ7pG8x bGlnbjogbGVmdDsg dnMjfKhdERkeRWsiK349 IHRvcDsnPkJpcnRoIERh iMO4JC17SL65aLVyh2R6 vYJ6J7TjQYJupcbx mikwwLM1VRQcSVHsbY67 Cs9vnPidMu9hZMLlCBA6 YDPqyCBuH9AvkH7rOtFf GPKeCKNxE1HgkIQi JTjhW967NVpiOqJ8ADMr zwOkU5CxDITjcHcpOiO9 r1V7Pu4AD3L7TU31EX67 yABno6E2zKZ1Z3Nw GWMhpcctdoldxET2FKQv DKBjfD16Uz1uwHnpDt8t JTZfFHG0YIJyiCLpC2Zg zQ2bJzMvIULqDVWa G9BfyZTmYOlnT106DVmi NyF7GVYepiNkJ9PfUDMn qSedGoP6r3X5Ru8JRZy7 RM78LV25nLGid1Z2 hON7V1UxWEWrybwsbvct iJF5BOHcGRPndC29Sh4k yLxkGj4aHVIkQJG7RHAb zOMqV0EkcU3vMvJu BLMzSQTtQ4AomBPkIUey S921OJkvVgK5VIWlucDb L6DhLSLeaHxfBtC3s8D4 Ox6EMBLaAA14QHA1 xQJ3IK77SF11S2GiTxwe dGFibGU+PHRhYmxlIHdp ZHRoPScxMDAlJyBzdHls IR5mFr8oRYBiUWXf dRxvsEFtLjApg6wqKMYr DHmsMU5xiCtxV0HtdXT5 VZNrj4y1Ce26M66uI7Gg dXA+OUJavLI0sVO9 mW8oJjZfWjP5NOepB210 HuEwzPUsZydba2vxe7ht gWb7HrM0NQFxagHhcQjj OZV1m1NuJo43S72f IHdpZHRoPSIxNSUiIHZh gAejni0zsG7qWe1+PGNv pDP2eOG6yV3vZgMiUkN8 AClcC916ZbHtkFHk Anvjd6ekl4rpcRu9UtJx MGYgtpAleZfdJDD9t0Hk Ow83L3ZohDffi4FoLyd8 va37zNRhv4D0jVY2 F6CeYMRfcliqwQUhrYuh ZY7wJORvoojhBBJrkF4r WCWjQ3h2EkUbZkO6VCzu W8PfcyP8NVLfeWEh IOlwTZD5U20xj0V2CWIx RZSoMKB3wHE6cX7kfVwx bjogbGVmdDsgdmVydGlj ZCteDKbwJ053LJEj eBiaOCBxtW5uPALvbXUd hIpbKE6jMXObsdgcEvcO WVvEFoisZ1UKXELVGAu3 A8MjEnq2WLSsbPkr UA5lnVHiZRhnVy5zxVcv oGyjTK4dPUQrjzypXWZi zC7hYGJprXCuhZivYJ6i ZMLdolliw362RpGg BQV0URRbmOBrF6AisP5a VpVdODTyVHIfB2LyqVEj SNxkY162DXtwToN5WMAx cdVqM3NsQSVwrVgl StP5h5C7Ni4oPG2yXE8t OWj4PJ11FT40qHNej8B9 xJR4V1XeIBTjjunqview oEQ4YWRoZOCxfJ96 bSLuHKnrJh8cm2C2i761 EORlHGYogP21Zj7siJft AYRcmKRWqU2gimups8uf cjogIzAwMDAwMDt0 LZb3TJSzmKtaCfByCDQ6 SiS7SBF1bYYxpM4epDsg mfvzmW8sTfy+MjMgWWVh rpU4Y7UbEhk2JKBz uWtoVR1gqKWuIKxuGy7c vSozoYifBV0lSVDescvw PKVpiB0iIXJfkYKicVxj YW8gJHSkshcpb411 WkAsTEX1QHZicYPlB7Pl dN9pVmStLUAxMVOkR5Cu nNKbKTriV264MUctVrL2 SVQyvbUrD7BqWRNy kPomFwN3h5V3Wn9WSL4m gAK6U8CeKkj7VJKegImz ST8mbNHjNYkuBa2ymHlf bBaxXF7fWCMawtfe EYUvlF3aRZBfbMZcqEvi UE1fUKGlgarxl736MzOv RCL6JOTylIQoA8VyvT6v QwPhRVWaAVKoV2Co sPXiVRhoR403WDtxTtW6 JLFyxlIqP2YaJZTkrYix EsN9n1T9Cf1TiAIoW7Bx Z3u0Z5LfTygmaDV+ UQ06XMVsHY33oPVfkLWc b8qwkBb2RyEbLYJnWYS9 lMgjBDwnc6MdVNMfR29d kMTpj2I5UONbnXfr zEIaMaWffWV1wF3cTUty aaqbb8ioospxRclun6wi wq52pX73V32eFDiqZQXb PSIzMCUiIHZhbGln nf2njI5hRc2+PGNvbCB3 cDO7bP3dQbXfCxK0KFrk H894DmVmjQUeQzgcg8rr c7gkpCn1HfKvBIMb bbRdbTmbMOT1w5TqYx05 L22nQEqfIKBbLJIyMULk LSQxaIvglq4hvI5iJf8+ BD7kr3milz59uE39 dHI+ZGQgUFT7qQfpOGey ETPlsW9oVZgrPkR3QWNs CuFptW19kNBcIKymOx2r lNzccWvtYD8lNYPa bewoq823SbHme7nmTCIi rYUdMGvdQKP0W33ir9T4 ATRiKEWxXNK7yVV0mE9c bGlnbjogbGVmdDsg obSzkIogTWnzDVgyC457 XBDgmOsvLyEpnKGeA1kk huWFQB8qYripoMN+PHRk MFK0aHjlVFvvXNLf iA3bHNEiQ8e9LkYuDpN1 TEfpY5RpbtP0HVLqcBSd DAIpkMMQuB8iymdcl9qk cjogIzAwMDAwMDt0 EUz3MNYvmIzlMtRyTZO2 DfY3OTW7cADohZ2ecRmj hqlnpW4dCmj+RklOOjwv dGQ+PUDhIKX4vOtn KYznTFCrtJ8qCTWlP6j8 VbBqWpM1EWloZ9GnksK0 LBZbxDKbQPPtsHAIqU5g nyogn9cotzwdYbXg AYGwUZl3WIp7JCQjdAdk TeRwRXB8JmL8UYW7xTCn eF3dxOluwwblhI8tPnz+ TVJOOjwvdGQ+PHRk QVI0pCaoBInyDJQwiY8e HHRyO8s0RaQmBgV6OHrd X2VndhL6NIDyyJFyERLx wVWZxV7qlmpqt1sr lmaxXmGwXKJhXCq3KBu7 VPQsrCgyIdZoZXU1YjA6 FRV2aTLswR1uhCnyfdsa rR5bGfp+IJS8CUU9 EX74DZ25R2DyCbltmKSn bGU+PHRhYmxlIHdpZHRo HDdeBDJwYrJsyEyhMV3h Uw1wMEIeFQVsvCpb cHNl (more content not included)... Normal [facility] Consent for Treatmenton Consent for Treatment [id number] #1.00CD:127 Normal [facility] Discharge Instructionson Discharge Instructions [id number]#1.00CD:127 Normal [facility] ED Clinical Summaryon 2020 ED Clinical Summary [address] [id number] ED Clinical Summary Person Information Name: ZAINAB MCCLURE [facility] Age: 25 Years : 1995 Sex: Female Language: Vincentian PCP: ERIN SAMS CNP Marital Status: Single [...] 02/17/2021 11:52:53 02/17/2021 11:52:53 02/17/2021 11:52:53 ADDRESS: [address] [place] [phone] [facility] NOTES: MEDICAL INFORMATION: Prescriptions Given: New Medications Printed Prescriptions lorazepam (Ativan 1 mg Tab) 1 Tablets By Mouth every 8 hours for 2 Days. Take one by mouth every eight hours as needed. Refills: 0. PATIENT EDUCATION INFORMATION: Instructions: Suicidal Feelings: How to Help Yourself; Managing Anxiety, Adult Follow up: With: Address: When: [facility] In 1 day 02/18/2021 With: Address: When: ERIN SAMS [address] [facility] [place] [address] [phone] Business (1) In 3 days DIAGNOSIS: Anxiety; Suicidal ideation Normal [facility] ED Note-Physicianon 02-18-20 ED Note-Physician [...] Oral, q8hr Follow-up With When Contact Information [facility] In 1 day 02/18/2021 EDT Additional Instructions: ERIN SAMS In 3 days [address] [facility], [place] [address]- [phone] Business (1) Additional Instructions: Patient Education Suicidal Feelings: How to Help Yourself Managing Anxiety, Adult Problem List/Past Medical History Ongoing No qualifying data Historical No qualifying data Medications Inpatient No active inpatient medications Home No active home medications Allergies No Known Medication Allergies Lab Results No qualifying data available. Diagnostic Results No qualifying data available. Normal [facility] Comment on above: Result Comment: [...] services (911 in the [place] ? The [facility] and human services helpline (211 in the [place] ? Go to your nearest emergency department. ? Call a suicide hotline to speak with a trained counselor. The following suicide hotlines are available in the [place]: ? 7-748-208-TALK ( ). ? 1-015-WXIMWYF ( ). ? . This is a hotline for Lithuanian speakers. ? . This is a hotline for TTY users. ? 2-589-0-U-RAMILA ( ). This is a hotline for lesbian, escobar, bisexual, transgender, or questioning youth. ? For a list of hotlines in [place], visit www.suicide.org/hotl zeferino/international/c bhdgy-myraqij-uglrsh es.html ? Contact a crisis center or [...] even if you do not feel sociable. Oiuv-ys-bkpb conversation is best to help them understand [...] can help you feel better. ? Take xxhh-iyh-gecadpt and prescription medicines only as told by [...] Lifeline: www.suicidepreventio nlifeline.org ? Hopeline: www.hopeline.com ? [employer] for Suicide Prevention: www.afsp.org ? The Ramila Project (for lesbian, escobar, bisexual, transgender, or questioning youth): www.thetrevorproject .org Contact a health care provider if: ? You feel as though you are a burden to others. ? You feel agitated, angry, vengeful, or have extreme mood swings. ? You have withdrawn from family and friends. Get (more content not included)... Normal [facility] ED Patient Summaryon 021 ED Patient Summary [address] [place] [id number] Patient Discharge Instructions Person Information Name: ZAINAB MCCLURE Age: 25 Years Arrival Date: 02/17/2021 09:42:11 Discharge Diagnosis: Anxiety; Suicidal ideation Primary Care Physician: ERIN SAMS CNP Provider Information Primary Provider: Vinicius Childers DO Advanced Culinary Artist:None The exam and treatment you received in the Emergency Department were for an urgent problem and are not intended as complete care. It is important that you follow up with a doctor, nurse practitioner, or physician?s dairy and food laboratory assistant for ongoing care. If your symptoms become worse or you do not improve as expected and you are unable to reach your usual health care provider, you should return to the Emergency Department. We are available 24 hours a day. REN ZAINAB K has been given the following list of patient education materials, prescriptions and follow-up instructions: Follow-up Instructions: With: Address: When: [facility] In 1 day 02/18/2021 With: Address: When: ERIN SAMS [address] [facility] [place] [address] [phone] Business (1) In 3 days In the [...] opioids can be used to help relieve mugxuodd-px-cewphd pain and are often prescribed following a [...] care professio (more content not included)... Normal [facility] Valuables Checkliston 2020 Valuables Checklist [id number] 6#1.00CD:127 Normal [facility] Vital Signs Date Time Vital Sign Value Performing Clinician Facility 03-11-2023 09:53-0400 Body height 154.9 cm Farshad Yaritza GONZALEZN-GRIP Work Phone: [facility] 12-10-2022 12:07-0400 Body height 155.2 cm Suman Baker MD, PhD Work Phone: [facility] Comment on above: without shoes 12-10-2022 12:07-0400 Body mass index (BMI) [Ratio] 30.64 kg/m2 Suman Baker MD, PhD Work Phone: [facility] 12-10-2022 12:07-0400 Body temperature 97.81 [degF] Suman Baker MD, PhD Work Phone: [facility] 12-10-2022 12:07-0400 Body weight 73.8 kg Suman Baker MD, PhD Work Phone: [facility] Comment on above: without shoes 12-10-2022 12:07-0400 Diastolic blood pressure 72 mm[Hg] Suman Baker MD, PhD Work Phone: [facility] 12-10-2022 12:07-0400 Heart rate 77 /min Suman Baker MD, PhD Work Phone: [facility] 12-10-2022 12:07-0400 Respiratory rate 14 /min Suman Baker MD, PhD Work Phone: [facility] 12-10-2022 12:07-0400 SaO2% (BldA) [Mass fraction] 99 % Suman Baker MD, PhD Work Phone: [facility] Comment on above: room air 12-10-2022 12:07-0400 Systolic blood pressure 118 mm[Hg] Suman Baker MD, PhD Work Phone: [facility] 10-22-2022 13:57-0400 Body height 154.9 cm Chayo Suero MD Work Phone: [facility] 10-22-2022 13:57-0400 Body mass index (BMI) [Ratio] 30.33 kg/m2 Chayo Suero MD Work Phone: [facility] 10-22-2022 13:57-0400 Body temperature 97.59 [degF] Chayo Suero MD Work Phone: [facility] 10-22-2022 13:57-0400 Body weight 72.8 kg Chayo Suero MD Work Phone: [facility] 10-22-2022 13:57-0400 Diastolic blood pressure 62 mm[Hg] Chayo Suero MD Work Phone: [facility] 10-22-2022 13:57-0400 Heart rate 62 /min Chayo Suero MD Work Phone: [facility] 10-22-2022 13:57-0400 Respiratory rate 20 /min Chayo Suero MD Work Phone: [facility] 10-22-2022 13:57-0400 SaO2% (BldA) [Mass fraction] 99 % Chayo Suero MD Work Phone: [facility] 10-22-2022 13:57-0400 Systolic blood pressure 119 mm[Hg] Chayo Suero MD Work Phone: [facility] 10-22-2022 10:19-0400 Body height 157.5 cm Yudelka Moralez CONCESSION ATTENDANT-GRIP Work Phone: [facility] 10-22-2022 10:19-0400 Body mass index (BMI) [Ratio] 28.66 kg/m2 Yudelka Moralez CONCESSION ATTENDANT-GRIP Work Phone: [facility] 10-22-2022 10:19-0400 Body weight 71.1 kg Yudelka Moralez CONCESSION ATTENDANT-GRIP Work Phone: [facility] 10-22-2022 10:19-0400 Diastolic blood pressure 76 mm[Hg] Yudelka Moralez CONCESSION ATTENDANT-GRIP Work Phone: [facility] 10-22-2022 10:19-0400 Systolic blood pressure 126 mm[Hg] Yudelka Moralez CONCESSION ATTENDANT-GRIP Work Phone: [facility] 10-22-2022 07:38-0400 Body height 157.5 cm Yudelka Moralez CONCESSION ATTENDANT-GRIP Work Phone: [facility] 10-22-2022 07:38-0400 Diastolic blood pressure 76 mm[Hg] Yudelka Moralez CONCESSION ATTENDANT-GRIP Work Phone: [facility] 10-22-2022 07:38-0400 Heart rate 73 /min Yudelka Moralez CONCESSION ATTENDANT-GRIP Work Phone: [facility] 10-22-2022 07:38-0400 Systolic blood pressure 126 mm[Hg] Yudelka Moralez CONCESSION ATTENDANT-GRIP Work Phone: [facility] 10-07-2022 11:05-0400 Body height 157.5 cm Yudelka Moralez CONCESSION ATTENDANT-GRIP Work Phone: [facility] 10-07-2022 11:05-0400 Body mass index (BMI) [Ratio] 28.66 kg/m2 Yudelka Moralez CONCESSION ATTENDANT-GRIP Work Phone: [facility] 10-07-2022 11:05-0400 Body temperature 98.2 [degF] Yudelka Moralez CONCESSION ATTENDANT-GRIP Work Phone: [facility] 10-07-2022 11:05-0400 Body weight 71.08 kg Yudelka Moralez CONCESSION ATTENDANT-GRIP Work Phone: [facility] 10-07-2022 11:05-0400 Diastolic blood pressure 74 mm[Hg] Yudelka Kirt CONCESSION ATTENDANT-GRIP Work Phone: [facility] 10-07-2022 11:05-0400 Heart rate 81 /min Yudelka Moralez CONCESSION ATTENDANT-GRIP Work Phone: [facility] 10-07-2022 11:05-0400 Respiratory rate 16 /min Yudelka Moralez CONCESSION ATTENDANT-GRIP Work Phone: [facility] 10-07-2022 11:05-0400 SaO2% (BldA) [Mass fraction] 99 % Yudelka Moralez CONCESSION ATTENDANT-GRIP Work Phone: [facility] 10-07-2022 11:05-0400 Systolic blood pressure 120 mm[Hg] Yudelka Moralez CONCESSION ATTENDANT-GRIP Work Phone: [facility] 08-19-2022 15:43-0500 Diastolic blood pressure 88 mm[Hg] Andreas Ortega MD, MPH Work Phone: [facility] 08-19-2022 15:43-0500 Systolic blood pressure 117 mm[Hg] Andreas Ortega MD, MPH Work Phone: [facility] 07-08-2022 07:50-0500 Body height 157.5 cm Andreas Ortega MD, MPH Work Phone: [facility] 07-08-2022 07:50-0500 Body mass index (BMI) [Ratio] 28.73 kg/m2 Andreas Ortega MD, MPH Work Phone: [facility] 07-08-2022 07:50-0500 Body temperature 98.01 [degF] Andreas Ortega MD, MPH Work Phone: 9(193)525-454285 [address] 07-08-2022 07:50-0500 Body weight 71.26 kg Andreas Ortega MD, MPH Work Phone: 6(510)747-829661 [place] [address] 07-08-2022 07:50-0500 Diastolic blood pressure 77 mm[Hg] Andreas Ortega MD, MPH Work Phone: 9(774)230-022461 [place] [address] 07-08-2022 07:50-0500 Heart rate 73 /min Andreas Ortega MD, MPH Work Phone: 7(517)687-362561 [place] [address] 07-08-2022 07:50-0500 Respiratory rate 16 /min Andreas Ortega MD, MPH Work Phone: 0(949)363-141861 [place] [address] 07-08-2022 07:50-0500 SaO2% (BldA) [Mass fraction] 98 % Andreas Ortega MD, MPH Work Phone: 5(291)631-931161 [place] [address] 07-08-2022 07:50-0500 Systolic blood pressure 121 mm[Hg] Andreas Ortega MD, MPH Work Phone: [facility] 06-09-2022 13:10-0500 Body mass index (BMI) [Ratio] 29.3 kg/m2 Carlos Eliseo CONCESSION ATTENDANT-GRIP Work Phone: [facility] 06-09-2022 13:10-0500 Body temperature 98.6 [degF] Carlos Gomes CONCESSION ATTENDANT-GRIP Work Phone: [facility] 06-09-2022 13:10-0500 Body weight 72.67 kg Carlos Eliseo CONCESSION ATTENDANT-GRIP Work Phone: [facility] 06-09-2022 13:10-0500 Diastolic blood pressure 60 mm[Hg] Carlos Gomes CONCESSION ATTENDANT-GRIP Work Phone: [facility] 06-09-2022 13:10-0500 Heart rate 80 /min [facility] Work [facility]: [facility] 06-09-2022 13:10-0500 Respiratory rate 16 /min [facility] Work Phone: [facility] 06-09-2022 13:10-0500 SaO2% (BldA) [Mass fraction] 98 % [facility] Work Phone: [facility] 06-09-2022 13:10-0500 Systolic blood pressure 110 mm[Hg] [facility] Work Phone: [facility] 05-29-2022 07:32-0500 Body temperature 98.01 [degF] Suman Baker MD, PhD Work Phone: [facility] 05-29-2022 07:32-0500 Diastolic blood pressure 64 mm[Hg] Suman Baker MD, PhD Work Phone: [facility] 05-29-2022 07:32-0500 Heart rate 77 /min Suman Baker MD, PhD Work Phone: [facility] 05-29-2022 07:32-0500 Respiratory rate 16 /min Suman Baker MD, PhD Work Phone: [facility] 05-29-2022 07:32-0500 SaO2% (BldA) [Mass fraction] 99 % Suman Baker MD, PhD Work Phone: [facility] 05-29-2022 07:32-0500 Systolic blood pressure 100 mm[Hg] Suman Baker MD, PhD Work Phone: [facility] 05-22-2022 15:50-0400 Body height 157.5 cm Suman Baker MD, PhD Work Phone: 5(682)673-836342 [address] 05-22-2022 15:50-0400 Body mass index (BMI) [Ratio] 30.73 kg/m2 Suman Baker MD, PhD Work Phone: 9(909)349-318342 [address] 05-22-2022 15:50-0400 Body weight 76.2 kg Suman Baker MD, PhD Work Phone: 4(183)461-450142 [address] 03-31-2022 12:02-0400 Diastolic blood pressure 70 mm[Hg] [facility] CONCESSION ATTENDANT-GRIP Work Phone: 0(098)174-209432 [place] [address] 03-31-2022 12:02-0400 Systolic blood pressure 124 mm[Hg] [facility] CONCESSION ATTENDANT-GRIP Work Phone: 5(752)062-835832 [place] [address] 03-31-2022 11:53-0400 Body height 157.5 cm [facility] CONCESSION ATTENDANT-GRIP Work Phone: 6(348)750-997632 [place] [address] 03-19-2022 15:37-0400 Body height 158.3 cm Suman Baker MD, PhD Work Phone: 8(778)369-647542 [address] 03-19-2022 15:37-0400 Body mass index (BMI) [Ratio] 30.63 kg/m2 Suman Baker MD, PhD Work Phone: 7(860)798-185332 [place] [address] 03-19-2022 15:37-0400 Body temperature 97.5 [degF] Suman Baker MD, PhD Work Phone: 2(499)342-678042 [address] 03-19-2022 15:37-0400 Body weight 76.75 kg Suman Baker MD, PhD Work Phone: 6(272)369-082065 [place] [address] 03-19-2022 15:37-0400 Diastolic blood pressure 84 mm[Hg] Suman Baker MD, PhD Work Phone: [facility] 03-19-2022 15:37-0400 Heart rate 90 /min Suman Baker MD, PhD Work Phone: [facility] 03-19-2022 15:37-0400 Respiratory rate 16 /min Suman Baker MD, PhD Work Phone: [facility] 03-19-2022 15:37-0400 SaO2% (BldA) [Mass fraction] 98 % Suman Baker MD, PhD Work Phone: [facility] 03-19-2022 15:37-0400 Systolic blood pressure 128 mm[Hg] Suman Baker MD, PhD Work Phone: [facility] 12-22-2021 18:05-0400 Body height 152.4 cm Ava Lundberg Other [employer] Other 12-22-2021 18:05-0400 Body mass index (BMI) [Ratio] 30.62 kg/m2 Ava Lundberg Other [employer] Other 12-22-2021 18:05-0400 Body temperature 99 [degF] Ava Lundberg Other [employer] Other 12-22-2021 18:05-0400 Body weight 71.12 kg Ava Lundberg Other [employer] Other 12-22-2021 18:05-0400 Diastolic blood pressure 89 mm[Hg] Ava Lundberg Other [employer] Other 12-22-2021 18:05-0400 Respiratory rate 16 /min Ava Tamika Other [employer] Other 12-22-2021 18:05-0400 SaO2% (BldA) [Mass fraction] 99 % Ava Lundberg Other [employer] Other 12-22-2021 18:05-0400 Systolic blood pressure 129 mm[Hg] Ava Lundberg Other [employer] Other Encounters Encounter Date Encounter Type Care Provider Facility Start: 08-09-2023 End: 08-09-2023 ambulatory LIZBET CAST Not Available Start: 07-14-2023 End: 07-14-2023 ambulatory MCKENZIE GRAYO Not Available Start: 06-01-2023 End: 06-01-2023 ambulatory MCKENZIE SOLE Not Available Start: 04-06-2023 ambulatory ERIN S LATRELL Facilit y:[facility] Start: 03-17-2023 ambulatory ERIN S LATRELL Facilit y:[facility] Start: 03-11-2023 ambulatory ERIN S LATRELL Facilit y:[facility] Start: 03-11-2023 End: 03-11-2023 Clinical Support Encounter Suman Baker MD, PhD Work Phone: [facility] 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 Start: 03-11-2023 ambulatory ERIN S LATRELL Facilit y:[facility] Start: 03-11-2023 End: 03-11-2023 Subsequent hospital visit by physician Farshad Vigil CONCESSION ATTENDANT-GRIP Work Phone: [facility] Comment on above: Arrived Start: 01-04-2023 ambulatory ERIN LATRELL Facility: [facility] Start: 12-16-2022 ambulatory ERINSHAVON CHARLESMER Facility: [facility] Start: 12-10-2022 End: 12-10-2022 Office outpatient visit 15 minutes Smuan Baker MD, PhD Work Phone: Division of Surgical Oncology 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) Start: 12-10-2022 ambulatory CARLOS LYMAN Facility :[facility] Start: 11-30-2022 End: 11-30-2022 ambulatory ERIN LATRELL Facility: Start: 10-27-2022 ambulatory CHEIKH COELHO Facility :[facility] Start: 10-27-2022 ambulatory ERIN STONER Facility :[facility] Start: 10-22-2022 ambulatory ANDREASGERMAN ORTEGA Facility: [facility] Start: 10-22-2022 End: 10-22-2022 Office outpatient new 60 minutes Chayo Suero MD Work Phone: [facility] Comment on above: Fibromyalgia muscle pain (Primary Dx) Start: 10-22-2022 ambulatory YUDELKA KIRT Facility:[facility] Start: 10-22-2022 End: 10-22-2022 Subsequent hospital visit by physician Yudelka Moralez CONCESSION ATTENDANT-GRIP Work Phone: [facility] [place] Start: 10-22-2022 ambulatory YUDELKA MORALEZ Facility:[facility] Start: 10-22-2022 End: 10-22-2022 Subsequent hospital visit by physician Yudelka Moralez CONCESSION ATTENDANT-GRIP Work Phone: [facility] [place] Comment on above: Arrived Start: 10-21-2022 ambulatory YUDELKA MORALEZ Facility:[facility] Start: 10-07-2022 ambulatory ANDREAS ORTEGA Facility: [facility] Start: 10-07-2022 End: 10-07-2022 Office outpatient visit 25 minutes Yudelka Moralez CONCESSION ATTENDANT-GRIP Work Phone: Division of Medical Oncology Comment [...] medical examination without abnormal findings ERIN SAMS [facility] Start: 08-31-2022 End: 09-01-2022 ambulatory ERIN SAMS Facility:[facility] Start: 08-31-2022 End: 09-01-2022 Encounter for general adult medical examination without abnormal findings ERIN SAMS Facility:[facility] Start: 08-26-2022 ambulatory ANDREASGERMAN ORTEGA Facility: [facility] Start: 08-24-2022 End: 08-25-[address] DOCTOR GREGORY Facility:[facility] Start: 08-19-2022 ambulatory ANDREASJANNY ORTEGA Facility: [facility] Start: 08-19-2022 End: 08-19-2022 Subsequent hospital visit by physician Andreas Ortega MD, MPH Work Phone: Department of Radiology Comment on above: Arrived Start: 08-19-2022 ambulatory YUDELKA MORALEZ Facility:[facility] Start: 08-19-2022 End: 08-19-2022 Subsequent hospital visit by physician Yudelka Moralez CONCESSION ATTENDANT-GRIP Work Phone: [facility] Comment on above: Arrived Start: 08-12-2022 End: 08-12-2022 ambulatory ERIN SAMS Facility:[facility] Start: 08-05-2022 End: 08-05-2022 ambulatory ERIN SAMS Facility:[facility] Start: 07-08-2022 ambulatory SELF SELF Facility: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 Start: 06-09-2022 ambulatory SELF SELF Facility: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 Facility:[facility] Start: 04-06-2022 Encounter for preprocedural laboratory examination DR TIMMY HALL . [facility] Start: 04-04-2022 End: 04-05-2022 ambulatory ERIN SAMS Facility: Start: 04-04-2022 End: 04-05-2022 Encounter for preprocedural laboratory examination ERIN SAMS Facility: Start: 03-31-2022 End: 03-31-2022 Subsequent hospital visit by physician Carlos Gomes APRN-GRIP Work Phone: [facility] [place] Comment on above: Arrived Start: 03-19-2022 End: [...] 12-22-2021 End: 12-22-2021 ambulatory Ava Lundberg Other [employer] Other Start: 12-22-2021 Office outpatient vi sit 15 minutes Ava Lundberg [facility] Procedures Date Procedure Procedure Detail Performing Clinician Start: 03-11-2023 Mri abdomen w/o cont rast material Yudelka Moralez CONCESSION ATTENDANT-GRIP Work Phone: Start: 10-22-2022 Echo tthrc r-t 2d w/wom-mode compl spec&colr d Yudelka Moralez CONCESSION ATTENDANT-GRIP Work Phone: Start: 10-22-2022 Ct soft tissue neck w/contrast material Yudelka Moralez CONCESSION ATTENDANT-GRIP Work Phone: Start: 10-22-2022 Ct thorax w/contrast material Yudelka Moralez CONCESSION ATTENDANT-GRIP Work Phone: Start: 10-07-2022 Natriuretic peptide Yudelka Moralez CONCESSION ATTENDANT-GRIP Work Phone: Start: 08-19-2022 Creatinine blood Marciano Ortega MD, MPH Work Phone: Start: 08-19-[address] atten uation skull base mid-thigh Yudelka Moralez CONCESSION ATTENDANT-[facility] Work Phone: Start: 05-29-2022 Assay of magnesium Dwaine Arnold MD Work Phone: Start: 05-28-2022 Assay of magnesium Dwaine Arnold MD Work Phone: Start: 05-27-2022 Assay of magnesium Dwaine Arnold MD Work Phone: Start: 05-26-2022 Assay of magnesium Dwiane Arnold MD Work Phone: Start: 05-25-2022 Assay [...] C A, IPB, CHM7, MGO #### [facility] (DEFAULT) [address] [place] [address] Start: 05-22-2022 Calcium ionized Suman Baker MD, [...] 03-31-2022 Ct thorax w/contrast material Carlos Gomes CONCESSION ATTENDANT-GRIP Work Phone: Start: 03-19-2022 CBC AND ELECTRONIC DIFF Carlos Gomes CONCESSION ATTENDANT-GRIP Work Phone: Start: 03-19-2022 Complete blood count with white cell differential, automated Carlos Gomes CONCESSION ATTENDANT-GRIP Work Phone: Start: 03-19-2022 Comprehensive metabo lic panel Carlos Gomes CONCESSION ATTENDANT-GRIP Work Phone: Plan of Treatment Date Care Activity Detail Author Start: 10-28-2023 End: 10-28-2023 Patient encounter procedure 10/28/2023 1:00 PM EDT Office Visit [facility] [place] [address] [place] [address] Kelton Cabrera Jr., MD [address] [place] [address] [facility] [place] Start: 06-17-2023 End: 06-17-2023 Patient encounter procedure 06/17/2023 1:30 PM EST Office Visit Division of Surgical Oncology [address] [place] [phone] Suman Baker MD, PhD [address] [place] [phone] Division of Surgical Oncology Start: 06-17-2023 End: 06-17-2023 Patient encounter procedure 06/17/2023 12:20 PM EST Appointment Imaging [facility] [address] [place] [phone] Suman Baker MD, PhD [address] [place] [phone] Imaging [facility] Start: 03-19-2023 Influenza vaccination [facility] Start: 03-17-2023 End: 03-17-2023 Patient encounter procedure Division of Medical Oncology Start: 03-11-2023 End: 03-11-2023 Patient encounter procedure 03/11/2023 Office Visit Surgical Oncology Suman Baker MD, PhD [address] [place] [address] Division of Surgical Oncology Start: 03-11-2023 End: 03-11-2023 Patient encounter procedure Imaging [facility] Start: 12-22-2022 End: 12-22-2022 Patient encounter procedure 12/22/2022 Office Visit Cardiovascular Medicine Marisela Velásquez, CONCESSION ATTENDANT-GRIP [address] [place] [address] Cardiology [facility] 5 Start: 12-17-2022 End: 12-17-2022 Patient encounter procedure 12/17/2022 Office Visit Oncology Andreas Ortega MD, MPH [address] [place] [address] Division of Medical Oncology Start: 12-10-2022 End: 12-11-2023 CT Abdomen and Pelvis W contrast IV CT ABDOMEN/PELVIS WITH CONTRAST Imaging Routine Primary malignant neuroendocrine tumor of appendix Expected: 12/10/2022, Expires: 12/11/2023 [facility] Comment on above: Expected: 12/10/2022, Expires: 4 Start: 12-10-2022 End: 12-11-2023 CT Chest W contrast IV CT CHEST WITH CONTRAST Imaging Routine Primary malignant neuroendocrine tumor of appendix Expected: 12/10/2022, Expires: 12/11/2023 [facility] Comment on above: Expected: 12/10/2022, Expires: 4 Start: 12-10-2022 End: 12-10-2022 Patient encounter procedure [facility] Start: 12-07-2022 End: 06-09-2023 CT Abdomen and Pelvis W contrast IV CT ABDOMEN/PELVIS WITH CONTRAST Imaging Routine Primary malignant neuroendocrine tumor of appendix Expected: 12/07/2022, Expires: 06/09/2023 [facility] Comment on above: Expected: 12/07/2022, Expires: 3 Start: 11-05-2022 End: 11-05-2022 Patient encounter procedure 11/05/2022 Office Visit Oncology Andreas Ortega MD, MPH [address] [place] [phone] Division of Medical Oncology Start: 10-27-2022 End: 10-27-2022 Patient encounter procedure 10/27/2022 Office Visit Cardiovascular Medicine Cheikh Coelho MD [address] [place] [phone] Cardiology [facility] 5 Start: 10-27-2022 End: 10-27-2022 ambulatory 10/27/2022 Telemed Clin Support Genetics Erin Stoner, [facility] [address] [place] [address] Division of Human Genetics Start: 10-21-2022 Subsequent hospital visit by physician 10/21/2022 Hospital Encounter Computerized Tomography Scan Yudelka Moralez APRN-CNP [address] [place] [address] [facility] [place] Start: 10-21-2022 End: 10-21-2022 Patient encounter procedure 10/21/2022 Appointment Echocardiography Yudelka Moralez APRN-CNP [address] [place] [address] [facility] [place] Start: 10-07-2022 End: 10-08-2023 CT Chest W contrast IV CT CHEST WITH CONTRAST Imaging Routine Carcinoid syndrome SOB (shortness of breath) Tachycardia Primary malignant neuroendocrine tumor of appendix Expected: 10/07/2022, Expires: 10/08/2023 [facility] Comment on above: Expected: 10/07/2022, Expires: Start: 10-07-2022 End: 10-08-2023 CT Neck W contrast IV CT NECK WITH CONTRAST Imaging Routine Primary malignant neuroendocrine tumor of appendix Expected: 10/07/2022, Expires: 10/08/2023 [facility] Comment on above: Expected: 10/07/2022, Expires: 4 Start: 08-26-2022 End: 08-26-2022 Telemedicine consultation with patient 08/26/2022 Telemedicine Oncology Andreas Ortega MD, MPH [address] [facility] [address] [place] [address] Division of Medical Oncology Start: 08-19-2022 End: 08-19-2022 Patient encounter procedure Imaging [facility] Start: 07-08-2022 End: 07-08-2023 Complete blood count with white cell differential, automated CBC, EDIF, PLATELET Lab Routine Primary malignant neuroendocrine tumor of appendix Expected: 07/08/2022, Expires: 07/08/2023 [facility] Comment on above: Expected: 07/08/2022, Expires: 3 Start: 07-08-2022 End: 07-08-2023 Comprehensive metabolic 2000 panel - Serum or Plasma COMPREHENSIVE METABOLIC PANEL Lab Routine Primary malignant neuroendocrine tumor of appendix Expected: 07/08/2022, Expires: 07/08/2023 [facility] Comment on above: Expected: 07/08/2022, Expires: 3 Start: 07-08-2022 End: 07-08-2023 CT Abdomen and Pelvis WO and W contrast IV CT ABDOMEN/PELVIS WITH AND WITHOUT CONTRAST Imaging Routine Primary malignant neuroendocrine tumor of appendix Expected: 07/08/2022, Expires: 07/08/2023 [facility] Comment on above: Expected: 07/08/2022, Expires: 3 Start: 07-08-2022 End: 07-08-2023 Lactate dehydrogenase [Enzymatic activity/volume] in Serum or Plasma LACTATE DEHYDROGENASE Lab Routine Primary malignant neuroendocrine tumor of appendix Expected: 07/08/2022, Expires: 07/08/2023 [facility] Comment on above: Expected: 07/08/2022, Expires: 3 Start: 07-08-2022 End: 07-08-2023 PT Skull base to mid-thigh NUC PET NEUROENDOCRINE Imaging Routine Primary malignant neuroendocrine tumor of appendix Expected: 07/08/2022, Expires: 07/08/2023 [facility] Comment on above: Expected: 07/08/2022, Expires: Start: 07-08-2022 End: 07-08-2022 Patient encounter procedure 07/08/2022 Office Visit Oncology Andreas Ortega MD, MPH [address] [place] [address] Division of Medical Oncology Start: 07-06-2022 End: 07-06-2022 Telemedicine consultation with patient 07/06/2022 Telemedicine Surgical Oncology Carlos Gomes, CONCESSION ATTENDANT-GRIP [address] [place] [address] [facility] Start: 06-09-2022 End: 06-09-2022 Patient encounter procedure 06/09/2022 Office Visit Surgical Oncology Carlos Gomes, CONCESSION ATTENDANT-GRIP [address] [place] [address] Division of Surgical Oncology Start: 04-21-2022 End: 04-21-2022 Evaluation and management of inpatient 04/21/2022 Surgery Multispecialty Suman Baker MD, PhD [address] [place] [phone] COLECTOMY PARTIAL LAPAROSCOPIC CCCT PERIOP Comment on above: COLECTOMY PARTIAL LAPAROSCOPIC Start: 04-21-2022 End: 04-21-2022 Laparoscopy colectomy partial w/anastomosis COLECTOMY PARTIAL LAPAROSCOPIC Primary malignant neuroendocrine tumor of appendix 04/21/2022 7:15 AM EDT [facility] Start: 04-21-2022 Evaluation and management of inpatient 04/21/2022 Hospital Encounter Multispecialty Suman Baker MD, PhD [address] [place] [phone] Primary malignant neuroendocrine tumor of appendix CCCT PERIOP Comment on above: Primary malignant neuroendocrine tumor o f appendix Start: 03-19-2022 End: 03-19-2023 Colonoscopy flx dx w/collj spec when pfrmd DIAGNOSTIC COLONOSCOPY GI/Bronch STAT Primary malignant neuroendocrine tumor of appendix Expected: 03/19/2022, Expires: 03/19/2023 [facility] Comment on above: Expected: 03/19/2022, Expires: 3 Start: 03-19-2022 Influenza vaccination INFLUENZA VACCINE (#1) [facility] Start: 03-19-2022 End: 03-19-2023 TYPE AND SCREEN - PREADMISSION TYPE AND SCREEN - PREADMISSION Blood Bank Routine Primary malignant neuroendocrine tumor of appendix Expected: 03/19/2022, Expires: 03/19/2023 [facility] Work Phone: Comment on above: Expected: 03/19/2022, Expires: 3 Start: 07-10-2021 COVID-19 VACCINE (2 - Pfizer risk series) COVID-19 VACCINE (2 - Pfizer risk series) [facility] Start: 07-10-2021 COVID-19 VACCINE (2 - Pfizer series) COVID-19 VACCINE (2 - Pfizer series) [facility] Start: 08-14-2020 Tetanus vaccination TETANUS [facility] Start: 2018 Screening for malignant neoplasm of cervix CERVICAL CANCER SCREENING DISCUSSION [facility] Start: 2016 Third diphtheria, tetanus and acellular pertussis (DTaP) vaccination TDAP (ADULT) [facility] Start: 2016 Zoster vaccine hzv live for subcutaneous use ZOSTER (SHINGLES) VACCINE (1 of 2) [facility] Start: 2015 Tetanus vaccination TETANUS [facility] Start: 2013 Screening for Chlamydia trachomatis CHLAMYDIA SCREEN [facility] Start: 2012 HIV screening HIV SCREENING DISCUSSION [facility] Start: 02-11-2011 Vaccination for human papillomavirus HPV VACCINE ADOL (2 - 2-dose series) [facility] Start: 09-11-2010 Vaccination for human papillomavirus HPV VACCINE ADOL (2 - Risk 3-dose series) [facility] Start: 2008 Vaccination for human papillomavirus HPV VACCINE ADOL (1 - 2-dose series) [facility] Start: 2003 PNEUMOCOCCAL VACCINE SERIES (1 - PCV) PNEUMOCOCCAL VACCINE SERIES (1 - PCV) [facility] Start: 1997 GONORRHEA SCREEN GONORRHEA SCREEN [facility] Start: 1997 Hepatitis C antibody, confirmatory test HEPATITIS C VIRUS SCREENING [facility] Start: 1997 Hepatitis C screening HEPATITIS C VIRUS SCREENING [facility] Start: 1997 Screening for Chlamydia trachomatis GONORRHEA SCREEN [facility] CHROMOGRANIN A CHROMOGRANIN A L ab Routine Primary malignant neuroendocrine tumor of appendix 03/11/2023 11:44 AM EDT [facility] Work Phone: End: 03-31-2022 CT Abdomen and Pelvis W contrast IV [facility] Work Phone: Comment on above: 1 Occurrences starting 03/31/2022 until 03/31/2022 End: 08-14-2022 CT Abdomen and Pelvis WO and W contrast IV [facility] Work Phone: Comment on above: 1 Occurrences starting 08/14/2022 until 08/14/2022 Ecg routine ecg w/le ast 12 lds trcg only w/o i&r [place] ECG, TRACING ONLY [place] - OFFICE PERFORMED Routine Primary malignant neuroendocrine tumor of appendix Ordered: 03/19/2022 [facility] Comment on above: Ordered: 03/19/2022 Echocardiography ECHOCARDIOGRAM Echocardiography Routine Carcinoid syndrome SOB (shortness of breath) Tachycardia Ordered: 10/07/2022 [facility] Comment on above: Ordered: 10/07/2022 Laparoscopy colectom y partial w/anastomosis COLECTOMY PARTIAL LAPAROSCOPIC Primary malignant neuroendocrine tumor of appendix [facility] End: 03-09-2023 Magnetic resonance imaging of abdomen and pelvis with contrast MRI ABDOMEN/PELVIS WITHOUT AND WITH CONTRAST Imaging Routine Primary malignant neuroendocrine tumor of appendix 1 Occurrences starting 03/09/2023 until 03/09/2023 [facility] Comment on above: 1 Occurrences starting 03/09/2023 until 03/09/2023 Removal of kike [place] STAPLE REM OVAL [place] - OFFICE PERFORMED Routine Primary malignant neuroendocrine tumor of appendix Ordered: 06/09/2022 [facility] Comment on above: Ordered: 06/09/2022 SURG PATH REQUEST [facility] Comment on above: Release Upon Ordering for 1 Occurrences starting 05/22/2022, 1 completed Immunizations Immunization Date Immunization Notes Care Provider Chhaya dhillon 04-28-2021 influenza virus vaccine, unspecified formulation Carlos Eliseo CONCESSION ATTENDANT-GRIP Work Phone: [facility] Payers Date Payer Category Payer Unknown [id number] 2021 Unknown [employer] PPO [id number] 2021-Present [phone] [address] [place] [address] PPO [id number] 1997 Unknown [id number] 2.16.840.1.295740.3.579.2.593 1997 Unknown [id number] 2.16.840.1.962477.3.579.2.593 1997 Unknown [id number] 2.16.840.1.095045.3.579.2.593 1997 Unknown [id number] 2.16.840.1.590934.3.579.2.593 1997 Unknown [id number] 2.16.840.1.698225.3.579.2.593 1997 Unknown [id number] 2.16.840.1.159188.3.579.2.593 1997 Unknown [id number] 2.16.840.1.077020.3.579.2.593 1997 Unknown [id number] 2.16.840.1.979901.3.579.2.593 1997 Unknown [id number] 2.16.840.1.873353.3.579.2.593 1997 Unknown [id number] 2.16.840.1.636023.3.579.2.593 1997 Unknown [id number] 2.16.840.1.770439.3.579.2.593 1997 Unknown [id number] 2.16.840.1.236940.3.579.2.593 1997 Unknown [id number] 2.16.840.1.847210.3.579.2.593 1997 Unknown [id number] 2.16.840.1.571790.3.579.2.593 1997 Unknown [id number] 2.16.840.1.611041.3.579.2.593 1997 Unknown [id number] 2.16.840.1.817730.3.579.2.593 1997 Unknown [id number] 2.16.840.1.725066.3.579.2.593 1997 Unknown [id number] 2.16.840.1.198765.3.579.2.594 1997 Unknown [id number] 2.16.840.1.451188.3.579.2.594 1997 Unknown [id number] 2.16.840.1.295927.3.579.2.594 1997 Unknown [id number] 2.16.840.1.087903.3.579.2.594 1997 Unknown [id number] 2.16.840.1.081543.3.579.2.594 1997 Unknown [id number] 2.16.840.1.377294.3.579.2.594 1997 Unknown [id number] 2.16.840.1.861009.3.579.2.594 1997 Unknown [id number] 2.16.840.1.909591.3.579.2.594 1997 Unknown [id number] 2.16.840.1.128044.3.579.2.594 1997 Unknown [id number] 2.16.840.1.461637.3.579.2.594 1997 Unknown [id number] 2.16.840.1.995977.3.579.2.594 1997 Unknown [id number] 2.16.840.1.051158.3.579.2.594 1997 Unknown [id number] 2.16.840.1.783686.3.579.2.594 1997 Unknown [id number] 2.16840.1.408960.3.579.2.594 1997 Unknown [id number] 2.16.840.1.019736.3.579.2.594 1997 Unknown [id number] 2.16.840.1.519986.3.579.2.594 1997 Unknown [id number] 2.16.840.1.827892.3.579.2.594 1997 Unknown [id number] 2.16.840.1.565344.3.579.2.594 1997 Unknown [id number] 2.16.840.1.335139.3.579.2.594 1997 Unknown [id number] 2.16.840.1.766960.3.579.2.594 1997 Unknown [id number] 2.16.840.1.970307.3.579.2.594 1997 Unknown [id number] 2.16.840.1.140104.3.579.2.594 1997 Unknown [id number] 2.16.840.1.159882.3.579.2.594 1997 Unknown [id number] 2.16.840.1.629979.3.579.2.594 1997 Unknown [id number] 2.16.840.1.384926.3.579.2.594 1997 Unknown [id number] 2.16.840.1.688523.3.579.2.594 1997 Unknown [id number] 2.16.840.1.983992.3.579.2.594 1997 Unknown [id number] 2.16.840.1.512569.3.579.2.594 1997 Unknown [id number] 2.16.840.1.940419.3.579.2.125 9 1997 Unknown [id number] 2.16.840.1.943040.3.579.2.125 9 1997 Unknown [id number] 2.16.840.1.816463.3.579.2.125 9 1959 Unknown [id number] Unknown [id number] 2.16.840.1.683998.19 Social History Date Type Detail Facility Unknown if ever smoked [employer] Other Start: 12-16-2022 End: 03-11-2023 Sex Assigned At [facility] Tobacco smoking stat us OHIS Tobacco smoking consumption unknown [facility] Work Phone: Start: 1995 Sex Assigned At Not on file [facility] Start: 03-19-2022 End: 04-14-2022 Tobacco smoking status OHIS Never smoked tobacco [facility] Start: 03-31-2022 End: 03-11-2023 Alcohol intake Ex-drinker (finding) [facility] Start: 03-19-2022 History SDOH Alcohol Comment last alchohol 2019; mixed drink rarely [facility] Start: 04-14-2022 Tobacco use and exposure Smokeless tobacco non-user [facility] Start: 05-12-2022 End: 08-19-2022 Exposure to SARS-CoV-2 (event) Not sure [facility] Start: 06-28-2022 End: 07-08-2022 Exposure to SARS-CoV-2 (event) Unable to assess [facility] Start: 12-16-2022 End: 03-11-2023 History of Social function [facility] Adolescent depressio n screening assessment 1 [facility] Clinical Notes 12-22-2021 to 12-10-2022 [facility] 12/10/2022 12:30 PM Malathi Vigil[facility] - 12/10/2022 12:30 PM EDTPatient InstructionsGrace Alexander MD - 10/22/2022 2:00 PM EDTPatient InstructionsAttachments Note Date & Type Note Facility 12-10-2022 History of Present illness Narrative Chief Complaint: Chief Complaint Patient presents with Follow-up HPI: Zainab Swift is a 27 y.o. female who presents to [facility] for post-operative visit [...] (Patient not taking: Reported on 07/06/2022) Pancrelipase, Pfo-Echj-Hucs, (Creon) [id number] units Cap DR Particles Take two caps [...] 27 y.o. female who presents to [facility] for post-operative visit [...] (Patient not taking: Reported on 07/06/2022) Pancrelipase, Lvc-Ngjz-Qzcq, (Creon) [id number] units Cap DR Particles Take two caps [...] interviewed and examined this patient with the FAMILY WORKER/fellow/resident. I reviewed the history and exam detailed [...] months with repeat imaging. Suman Baker MD/PhD outside production inspector Division of Surgical Oncology Department of Surgery documented in this encounter [facility] 12-10-2022 Instructions MAMTA Villagran - 12/10/2022 12:30 PM EDT documented in this encounter [facility] 10-22-2022 History of Present illness Narrative [...] ulcers, vision changes. She endorses fatigue with personal clothing laundry aide but overall able to do everything on [...] Surgeon: Suman Baker MD, PhD; [facility] COLECTOMY PARTIAL OPEN Right 05/22/2022 Laterality: Right; Surgeon: Suman Baker MD, PhD; [facility] DEBULKING INTRA-ABDOMINAL/PELVIC/RETROPERIT FLEMING W/ OMENECTOMY & PELVIC PARA-AORTIC LYMPHADENECTOMY N/A 05/22/2022 Laterality: N/A; Surgeon: Suman Baker MD, PhD; [facility] COLECTOMY PARTIAL LAPAROSCOPIC N/A 04/21/2022 Laterality: N/A; Surgeon: Suman Baker MD, PhD; [facility] COLONOSCOPY DIAGNOSTIC 04/08/2022 APPENDECTOMY LAPAROSCOPIC 02/03/2022 [place], [place] Family History Problem Relation Age of [...] Reported on 07/06/2022) 30 tablet 0 Pancrelipase, Rvk-Dagt-Stuf, (Creon) [id number] units Cap DR Particles Take two caps [...] the [place] population will have a positive HUNTRE, but only a vast minority of these [...] Chayo Suero MD documented in this encounter [facility] 10-22-2022 Instructions Chayo Suero MD - [...] Rub Alcohol hand rub, also called hand asian studies professor, can be used instead of soap and [...] they are dry, atleast 20-30 seconds. [facility]. This handout is for informational purposes only. Talk with your doctor or healthcare team if you have any questions about your care. For more health information call the Library for Health Information at [phone] or email: [email or web address]. documented in this encounter [facility] 10-22-2022 History of Present illness Narrative Intravenous access obtained and remained for next appointment in cardioology at [facility]. 22 gauge IV in left ac. Dressing intact and/or coban used to secure access. Patient instructed to report directly to next appointment. documented in this encounter [facility] 10-07-2022 Note Acute Coronary Syndr ome (ACS): Initial Evaluation and Management: [email or web address] [facility] 10-07-2022 History of Present illness Narrative [...] able to do housework. 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 Eating ok. Weight [...] Reported on 07/06/2022) 30 tablet 0 Pancrelipase, Aue-Mtpp-Czwu, (Creon) [id number] units Cap DR Particles Take two caps [...] OR COLONOSCOPY DIAGNOSTIC 04/08/2022 APPENDECTOMY LAPAROSCOPIC 02/03/2022 [place], [place] Past medical, surgical, family, and social [...] any new or worsening symptoms. Yudelka Moralez APRN-GRIP Endocrine Tumor Program [facility] and [facility] To discuss with Dr. Ortega documented in this encounter [facility] 10-07-2022 Instructions Johana Lutz RN - [...] script to Zainab Thank you for choosing [facility] for your cancer care. FMLA/Disability forms: Please allow up to 2 weeks for the forms to be returned to you +++ should you need any FMLA, Short term disability or care home disability forms filled out please fax them to (f) [phone] ++++ Refill requests: Please allow 24-48 hours for a response My chart message response: PLEASE DO NOT SEND IN URGENT/EMERGENT MESSAGES VIA MY CHART. Please allow up to 24-48 hours for a response via my chart. Should you have questions or concerns, please call [phone] documented in this encounter [facility] 07-08-2022 History of Present illness Narrative [...] quickly and requires nap. 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 Better appetite with [...] OR COLONOSCOPY DIAGNOSTIC 04/08/2022 APPENDECTOMY LAPAROSCOPIC 02/03/2022 [place], [place] Social History Socioeconomic History Marital status: [...] recommendations. MAMTA Travis Neuroendocrine Tumor Program [facility] and [facility] Addendum by Dr. Ortega: IAttending Addendum:I saw and evaluated the patient with Yudelka Moralez CNP. I provided a substantive portion of [...] She was seen by Dr. Suman Baker ([facility] in 03/[address] chest revealed a [...] and fatigue. ECOG PS 1. 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 1. Metastatic, well differentiated, grade 1, appendicular [...] placebo groups was 14.3 and 6 months (p=[id number]), respectively. The CLARINET study, [which enrolled patients [...] 2. LAMN: Discussed with Dr. Vinicius Gomes/GI [facility] who recommended active surveillance. No role for adjuvant systemic therapy. Patient will continue to follow with Dr. Suman Baker. 3. Hx of NET in family: referral to genetics 4. Transaminitis: discontinue hepatotoxins/acetaminophen. Repeat LFTs at [facility]. documented in this encounter [facility] 07-08-2022 Instructions Yina Amaya RN - [...] Tylenol Cancel pathology-done documented in this encounter [facility] 06-09-2022 History of Present illness Narrative Chief Complaint: Chief Complaint Patient presents with Follow-up HPI: Zainab Swift is a 27 y.o. female who presents to [facility] for post-operative visit [...] MAMTA Carrion documented in this encounter [facility] 06-09-2022 Instructions Veronique Calvin RN - 06/09/2022 1:15 PM EST Tele health visit with Carlos Gomes CNP in 4 weeks on a Wednesday. Referral placed to neuroendocrine oncology. Return in [address] Baker with scans same day. documented in this encounter [facility] 05-29-2022 Note Formatting of this n ote [...] via wheelchair with all belongings at 1147. [facility] 05-29-2022 Miscellaneous Notes Patient and spouse given all discharge instructions at this time. Patient verbalizes understanding of all discharge instructions and [facility] Patient states she properly demonstrated how [...] and assistance is needed, please page the welder apprentice combination PCRM at [phone]. Patient did well overnight. Patient pain mostly [...] disintegrating tablet because of the NG. Thanks [id number] Q1 safety rounds completed. Patient pain controlled [...] Providers Updated In IHIS Yes Contact Information Hide Worker/SW Added to Care Team Yes This Photostatic Copy Maker is Primary Hide Worker/SW Yes (Antonio Jiang [facility] [phone]) Hide Worker Name Pinky Barcenas RN [facility] Hide Worker's Social Work Contact Name Bailey WILLAMS, [facility] Doweling Machine Operator's Living Environment Lives With spouse Living Arrangements [...] Education And Care For Discharge? Phill Swift [phone] Can Support Person Meet The Care Needs Of The Patient? 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 Employment/Financial Concerns no Source Of Income salary/wages Financial Concerns none Insurance Medical Insurance Verified Yes Prescription Coverage Yes Pharmacy updated in IS Yes Initial Discharge Planning Home Care Services ([employer] [employer]) No Home Therapies ([employer]) None DME ([employer]) None Medical Supplies ([employer]) None Patient Goal for Discharge Return home with assistance from family and friends Anticipated discharge disposition Home Anticipated Services at Discharge Outpatient follow up Anticipated Changes Related to Illness none Current Discharge Risk high risk diagnoses (i.e., CHF, Stroke, DM, chronic pain, abdominal pain, nausea and vomiting) Transportation Available car Home Care Services ([employer] [employer]) Additional Home Care Services ([employer]) no Assessment/Concerns to be Addressed Concerns To [...] All questions answered. 1514: Patient discharged from [facility] PACU per protocol. Patient transported via gurney with side rails up x2 with HOB>30 degrees to room 1204 [facility] by Natalia EMERY and Dang LISA. Family called to patient's bedside. 1310: Patient arrives in [facility] PACU from OR via gurney with side rails up x2 with HOB >30 degrees, accompanied by Anesthesiologist: Vinicius Gupta DO; Chayo Benson MD Transportation Department Head: VIJAYA Gamboa; VIJAYA Lopez Blow Pit Helper Assisting: Richard Bradshaw MD Computer Systems Security Analyst: Wali Art. Patient placed on monitors, VSS. Report received from anesthesia. Patient assessed, see assessment. 1427: PACU labs and abdominal xray for NG placement cleared by Miguel Betancourt at this time. 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 JR drain placed in pelvis. SURGEON Surgeon(s) and Role: * Suman Baker MD, PhD - Primary ANESTHESIOLOGIST Anesthesiologist: Vinicius Gupta DO; Chayo Benson MD Transportation Department Head: VIJAYA Gamboa; VIJAYA Lopez Blow Pit Helper Assisting: Richard Bradshaw MD Computer Systems Security Analyst: Wali Art SURGICAL STAFF Soft Boarder: Piedad Maki RN; Rima Medel RN Relief Soft Boarder: Suri Stockton RN Relief Scrub: [facility] Guillermina Scrub Person: Heidy Skelton; Tammy [...] May 22, 2022 1:06 PM Zainab Swift ([id number]) PRE OPERATIVE DIAGNOSIS Primary malignant neuroendocrine tumor [...] Anesthesiologist: Vinicius Gupta DO; Chayo Benson MD Transportation Department Head: VIJAYA Gamboa; VIJAYA Lopez Blow Pit Helper Assisting: Richard Bradshaw MD Computer Systems Security Analyst: Wali Art SURGICAL STAFF Soft Boarder: Piedad Maki RN; Rima Medel RN Relief Soft Boarder: Suri Stockton RN Relief Scrub: Ghanshyam Townsend [...] 1:04 PM SURGEONS: Suman Baker MD, PhD NUT TIGHTENER SURGEON: Rodolfo Arnold MD PROCEDURE: - Exploratory [...] second timeout per standard procedure at the [facility]. We made a midline incision using a [...] sarmiento stapler device. Next, we began the ppwapd-bi-ebvfmgt dissection to mobilize the colonic mesentery. We [...] filed. We then proceeded with creating a lnmv-xb-lnoq functional end-to-end anastomosis between the distal ileum [...] Seen 05/22/22 documented in this encounter [facility] 05-29-2022 Hospital course Narrative Discharge Summary Name: [...] of Surgical Oncology Arrive at: Arrive to [facility] First Floor Registration [phone] documented in this encounter [facility] 05-28-2022 Note Formatting of this n ote [...] and assistance is needed, please page the welder apprentice combination PCRM at [phone]. [facility] 05-28-2022 History of Present illness Narrative [...] the care of Zainab Swift. Please page [phone] or call [phone] with any questions or concerns. Elroy Powell MD Acute Pain Service Senior Resident @ [phone] Subjective: Passing gas and having regular BMs. [...] Plan was discussed with Dr. Oanh Betancourt, CONCESSION ATTENDANT-GRIP HPB surgery G3 service [phone] Anesthesia Acute Pain Progress Note Zainab Swift [...] acute pain service at [phone] or call [phone] with any questions or concerns. Yann Burr [...] with MAMTA Wisdom B surgery G3 service [phone] Psychosocial Assessment Per chart review, patient is a is a 27 y.o. 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 PMH: anxiety, borderline personality disorder, depression, GERD SW met with patient to introduce self, explain social media developer role during inpatient stay, and answer patient questions. Patient was alert and oriented x4 and agreeable to SW visit. Information Source Information Source: patient , review of medical record, spouse Information Source Name: Arlette Swift Information Source Number: see demographics Contact Information Hide Worker Name: Pinky Smith RN [facility] Hide Worker's Social Work Contact Name: Bailey WILLAMS [facility] Doweling Machine Operator's Living Environment Lives With: spouse Living Arrangements: house (one story house wiith 3 Steps to enter) Provides Primary Care For: no one Primary Care Provided By: spouse/significant other, self Support System: Immediate family Able to Return to Prior Arrangements: yes Employment/Financial Employed?: Yes 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 Health Insurance / Rx: [id number] [place] [address] [address] [facility] Anticipated Discharge Plan: Pt report she plans to return home with care and transportation provided by her . Medical Team Considerations: None SW Interventions/Recommendations: Service SW name and contact information placed on white board in patient's room to contact as needed. SW will continue to remain available to provide assistance and support as needed during inpatient stay. Bailey Magallanes, JOINT SETTER, SOLAR SYSTEM INSTALLER SONC and HPB Doweling Machine Operator Pager: [phone] For Evening (4:30pm-8am) and Weekend SW needs please call [phone] or page [phone] Anesthesia Acute Pain Progress Note Zainab Swift [...] regimen Please page acute pain service at [phone] or call [phone] with any questions or concerns. Yann Burr [...] was discussed with Dr. Oanh Colón APRN-TASH [facility] [facility] surgery G3 service [id number] Anesthesia Acute Pain Progress Note Zainab Swift [...] acute pain service at [phone] or call [phone] with any questions or concerns. Yann Burr [...] interviewed and examined this patient with the FAMILY WORKER/fellow/resident. I reviewed the history and exam detailed in the note and have edited it as necessary. I agree with the medical decision making unless otherwise noted below. The patient is doing well. Her pain is well controlled. She is mildly distended on exam. We will continue NPO with NGT until return of bowel function. Suman Baker MD/PhD outside production inspector Division of Surgical Oncology Department of Surgery [...] Plan was discussed with Dr. Oanh Colón, CONCESSION ATTENDANT-GRIP HP[facility] surgery G3 service [id number] [facility] Surgery Note Subjective: Patient doing well [...] acute pain service at [phone] or call [phone] with any questions or concerns. Yann Burr [...] regimen Please page acute pain service at [phone] or call [phone] with any questions or concerns. Yann Burr [...] acute pain service at [phone] or call [phone] with any questions or concerns. Richard Bradshaw MD residential leasing manager [facility] documented in this encounter [facility] 05-27-2022 Note Formatting of this n ote [...] with stand-by assistance from multiple times yesterday. [facility] 05-26-2022 Consult note Formatting of th is [...] 1: Location: forearm, anterior, right Device/Lot Number: [id number] catheter system Gauge/Length: 1 3/4 in length;20 gauge Unsuccessful Insertion Attempts: 1 Unsuccessful Attempt Location/Site: Pain Prevention/Patient Tolerance: distraction;tolerated well;appears comfortable Removal: Additional Comments: placed by Carla Mccurdy RN Lumen 2: Lumen 3: Peripheral IV Present on Admission: (Retired/Read Only) Location: (Retired/Read Only) Device: (Retired/Read Only) Gauge/Length: Video Game Creator/Lot Number: Unsuccessful Insertion Attempts: (Retired/Read Only) Unsuccessful [...] care of this patient. Vascular Access Team [id number] [facility] 05-26-2022 Consult note Formatting of th is [...] 1: Location: forearm, anterior, right Device/Lot Number: [id number] catheter system Gauge/Length: 1 3/4 in length;20 gauge Unsuccessful Insertion Attempts: 1 Unsuccessful Attempt Location/Site: Pain Prevention/Patient Tolerance: distraction;tolerated well;appears comfortable Removal: Additional Comments: placed by Carla Mccurdy RN Lumen 2: Lumen 3: Peripheral IV Present on Admission: (Retired/Read Only) Location: (Retired/Read Only) Device: (Retired/Read Only) Gauge/Length: Video Game Creator/Lot Number: Unsuccessful Insertion Attempts: (Retired/Read Only) Unsuccessful [...] care of this patient. Vascular Access Team [id number] documented in this encounter [facility] 05-25-2022 Note Formatting of this n ote might be different from the original. 2124: Gabriella paged: Rm [phone], Kryling: FYI pt states that she can't tolerate taking the olanzapine disintegrating tablet because of the NG. Thanks [id number] [facility] 05-22-2022 Note Formatting of this n [...] outcomes by discharge/transition of care. Outcome: Ongoing [facility] 05-22-2022 Note Formatting of this n ote might be different from the original. I certify that this patient requires inpatient services at this time. I anticipate the expected length of stay will include at least two midnights. Inpatient services are due to the following medical concerns appendiceal NET. Plans for post hospitalization care will be discharge to home. [facility] 05-22-2022 Note Formatting of this n ote is different from the original. 05/22/22 1608 Referral Information Arrived From home or self-care;operating room Readmission Information Was patient readmitted within 30 Days? No Information Source Information Source patient Information Source Name Zainab Swift-in person Information Source Number Demographics reviewed Outpatient Providers Outpatient Providers Updated In IHIS Yes Contact Information Hide Worker/SW Added to Care Team Yes This Photostatic Copy Maker is Primary Hide Worker/SW Yes (Antonio Jiang RN [facility] [phone]) Hide Worker Name Pinky Barcenas RN [facility] Hide Worker's Social Work Contact Name Bailey WILLAMS, [facility] Doweling Machine Operator's Living Environment Lives With spouse Living Arrangements [...] Education And Care For Discharge? Phill Swift [phone] Can Support Person Meet The Care Needs Of The Patient? 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 Employment/Financial Concerns no Source Of Income salary/wages Financial Concerns none Insurance Medical Insurance Verified Yes Prescription Coverage Yes Pharmacy updated in IHIS Yes Initial Discharge Planning Home Care Services (LIBRARIAN SPECIAL LIBRARY) No Home Therapies (LIBR[employer]RARY) None DME (LIBR[employer]IAN [employer] LIBRARY) None Medical Supplies (LIBR[employer]IAN [employer] LIBRARY) None Patient Goal for Discharge Return home with assistance from family and friends Anticipated discharge disposition Home Anticipated Services at Discharge Outpatient follow up Anticipated Changes Related to Illness none Current Discharge Risk high risk diagnoses (i.e., CHF, Stroke, DM, chronic pain, abdominal pain, nausea and vomiting) Transportation Available car Home Care Services ([facility]IAN [employer] LIBRARY) Additional Home Care Services ([employer] [employer]) no Assessment/Concerns to be Addressed Concerns To [...] Lines/Drains/Tubes Abdominal incision with dressing x 2 Grisedla drain x 1-under distal dressing NG-low wall [...] and for discharge planning. Medical team updated. [facility] 05-22-2022 Note Formatting of this n ote might be different from the original. 1512: Report called to Jevon EMERY on . All questions answered. 1514: Patient discharged from [facility] PACU per protocol. Patient transported via gurney with side rails up x2 with HOB>30 degrees to room 1204 [facility] by Natalia EMERY and Dang LISA. Family called to [facility]'s bedside. [facility] Note Formatting of this n ote might be different from the original. 1310: Patient arrives in [facility] PACU from OR via gurney with side rails up x2 with HOB >30 degrees, accompanied by Anesthesiologist: Vinicius Gupta DO; Chayo Benson MD Transportation Department Head: VIJAYA Gamboa; VIJAYA Lopez Blow Pit Helper Assisting: Richard Bradshaw MD Computer Systems Security Analyst: Wali rAt. Patient placed on monitors, VSS. Report received from anesthesia. Patient assessed, see assessment. 1427: PACU labs and abdominal xray for NG placement cleared by Miguel Betancourt at this time. [facility] 05-22-2022 Note Formatting of this n ote is different from the original. 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 JR drain placed in pelvis. SURGEON Surgeon(s) and Role: * Suman Baker MD, PhD - Primary ANESTHESIOLOGIST Anesthesiologist: Vinicius Gupta DO; Chayo Benson MD Transportation Department Head: VIJAYA Gamboa; VIJAYA Lopez Blow Pit Helper Assisting: Richard Bradshaw MD Computer Systems Security Analyst: Wali Art SURGICAL STAFF Soft Boarder: Piedad Maki RN; Rima Medel RN Relief Soft Boarder: Suri Stockton RN Relief Scrub: Ghanshyam Townsend [...] Arnold MD May 22, 2022 1:06 PM [facility] Work Phone: 05-22-2022 Note Formatting of this n ote is different from the original. Zainab Jamison ([id number]) PRE OPERATIVE DIAGNOSIS Primary malignant neuroendocrine tumor [...] Anesthesiologist: Vinicius Gupta DO; Chayo Benson MD Transportation Department Head: VIJAYA Gamboa; VIJAYA Lopez Blow Pit Helper Assisting: Richard Bradshaw MD Computer Systems Security Analyst: Wali Art SURGICAL STAFF Soft Boarder: Piedad Maki RN; Rima Medel RN Relief Soft Boarder: Suri Stockton RN Relief Scrub: Ghanshyam Townsend [...] Hong MD May 22, 2022 1:04 PM [facility] Work Phone: 05-22-2022 Note Formatting of this n ote is different from the original. SURGEONS: Suman Baker MD, PhD NUT TIGHTENER SURGEON: Rodolfo Arnold MD PROCEDURE: - Exploratory [...] second timeout per standard procedure at the [facility]. We made a midline incision using a [...] sarmiento stapler device. Next, we began the qyfzac-el-hooqcll dissection to mobilize the colonic mesentery. We [...] filed. We then proceeded with creating a yoqr-ze-mcvz functional end-to-end anastomosis between the distal ileum [...] participated for the entirety of the case. [facility] Work Phone: 05-22-2022 Nurse Surgical operation note 0815 Family notified of surgery start 102, 1211 Family updated 1228 Handoff report sent to PACU charge nurse 1255 PACU given notice of arrival 1309 Patient extubated and transported to PACU with anesthesia at bedside and on oxygen inhalation Rima Medel RN [facility] 05-22-2022 Nurse Note 0815 Family notified of surgery start 1021, 121 Family updated 1228 Handoff report sent to PACU charge nurse 1255 PACU given notice of arrival 1309 Patient extubated and transported to PACU with anesthesia at bedside and on oxygen inhalation Rima Medel RN documented in this encounter [facility] 05-22-2022 Note Formatting of this n [...] Visit Frequency Sat Last Date Seen 05/22/22 [facility] 05-22-2022 History and physical note Surgical [...] N/A; Surgeon: Suman Baker MD, PhD; Location: [facility] MAIN OR COLONOSCOPY DIAGNOSTIC 04/08/2022 APPENDECTOMY LAPAROSCOPIC 02/03/2022 [place], [place] Family History Family History Problem Relation [...] day before surgery 05/21/2022 04/23/22 Elsie Mason APRN-GRIP FLUoxetine 40 MG capsule 40 mg, Oral, [...] hours as instructed. 05/21/2022 04/23/22 Elsie Mason APRN-GRIP Review of Systems Denies the following: Arrhythmias, [...] to the patient's satisfaction. Liza Cisneros PA-C [facility] 05-22-2022 History and physical note Surgical [...] N/A; Surgeon: Suman Baker MD, PhD; Location: [facility] MAIN OR COLONOSCOPY DIAGNOSTIC 04/08/2022 APPENDECTOMY LAPAROSCOPIC 02/03/2022 [place], [place] Family History Family History Problem Relation [...] hours as instructed. 05/21/2022 04/23/22 Elsie Mason APRN-GRIP Review of Systems Denies the following: Arrhythmias, [...] Cisneros PA-C documented in this encounter [facility] 05-21-2022 Hospital Discharge instructions Pinky Be RN - 05/21/2022 10:38 AM EDT Contacts: Suman Baker MD Office Number: [phone] Option 1 During office hours, Wednesday through Wednesday, 8:00 AM to 4:30 PM, call the office if you have any questions or concerns. After hours, weekends and holidays call the office number and you will be transferred to the After Hours Nurse Line. Call 911 for Emergencies. Your case management specialist (PCRM) has arranged your appointments for follow [...] pharmacist before using any other medicine, including vpny-adf-llujfdy medicines, vitamins, and herbal products. Avoid taking [...] many resources are available. The [facility] [employer] Information Call to request information or check hours. [facility] LumiGrow: or , www.Wetradetogether [facility] Classes: JumpCam for Life, Integrative Care Monthly Classes [facility] for Life Program offers a series of [...] families and friends. For more information, contact [employer] at or visit our website at www.Wetradetogether Resources in [facility] include the following: The [place] Cancer Society, [facility] Unit . The [employer] [facility] The Cancer Support [facility]: http://cancersupportohio.org/prog gpkl-uva-dukrbtat/virtual-communi ty/ National Resources: [place] Cancer Society (ACS), www.cancer.org 5-358-RHU-2345, [place]: 0-773-GWH-[place]. National Comprehensive Cancer [facility] (NCCN) 1-615-169-NCCN, www.nccn.org National Cancer [place] (NCI) 1-810-4-CANCER, www.nci.gov The following attachments cannot be sent through Care Everywhere.Lovenox or Heparin: Subcutaneous Injections ([facility]) (Vincentian)documented in this encounter [facility] 04-29-2022 Note PROCEDURE: XR HIP [...] authenticated by: CAROLYN WALSH Date: 2022-04-29 16:59 [facility] 04-29-2022 Note PROCEDURE: XR HIP RT [...] by: CAROLYN WALSH Date: 2022-04-29 16:59 [facility] 04-29-2022 Note PROCEDURE: XR HIP [...] by: CAROLYN WALSH Date: 2022-04-29 16:59 [facility] 03-19-2022 History of Present illness Narrative Images [...] appendectomy on 02/03/22 for acute appendicitis at [facility]. 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 She presents to [facility] Surgical Oncology clinic for surgical evaluation. [...] History: Procedure Laterality Date APPENDECTOMY LAPAROSCOPIC 02/03/2022 [place], [place] No Known Allergies Current Outpatient Medications [...] in our surgical oncology clinic at [facility], [facility] and [facility]. As you know, Ms. Swift is a [...] the future. Sincerely, Suman Baker MD, PhD outside production inspector Department of Surgery Division of Surgical Oncology [address] [place] [address] Office [phone] Fax [email or web address] documented in this encounter [facility] 03-19-2022 Instructions Rhoda Lazo RN - 03/19/2022 3:00 PM EDT Pre-operative Information As a patient at the [facility], you may work with various departments and have help from many professionals. One of these is a surgical oncologist who works in the Division of Surgical Oncology. Surgical oncologists are surgeons who have completed advanced training to care for cancer patients. All of the surgical oncologists at the [facility] have completed specialized training and are board-certified. The surgeon who will be performing your surgery is Suman Baker M.D., outside production inspector. [address], [place] [address] Office phone: [phone] We are available to take calls Wednesday-Wednesday 8:00am-4:30pm. During non-business hours and holidays phone calls will be forwarded to a service covering our patients. Please communicate with our team through [facility] [employer] for non-urgent issues only. Office fax: [phone] Clinic Nurse Practitioner Carlos Gomes Demolition Hammer Operator Sandra Kennedy Housing Project Manager Iris Giraldo OUR TEAM OF EXPERTS Raissa Otero is associated with [facility] and is an academic medical center. Dr. Skip Le is an attending physician, the tool crib supervisor of your care. Listed below are the members of his team: Surgical Oncology Fellow: a physician who completed residency and is obtaining further education. Resident(s): a physician who has finished maintenance of way superintendent and is receiving training in a specialized area (i.e. surgery) Account Engineer(s): a physician who has completed medical school and is in the 1st year of training Nurse Practitioner (FAMILY WORKER): A registered nurse with a master's or doctoral degree who is licensed to practice; Clinic: Carlos Gomes, [facility]: Nayeli EspinozaLottie, [facility], [facility], Kika Colón, [facility], Monica Jackson, [facility] Patient Care Livestock Commission Agent (PCRM): A registered nurse who coordinates care for patients returning home from the hospital and assists in coordinating home care; Clinic: Alissa Hunt RN, Hospital: Felicitas Campos RN, Yoselyn Lange RN, Antonio Jeffrey RN. MEDICAL RECORDS The Release of Information (ROSALBA) area is staffed from 8:00 a.m. to 7:00 p.m. and is available for walk in requests from 8:00 a.m. to 4:[address] [facility] is responsible for answering requests for copies of medical records from various requestors such as insurance companies, hospitals and patients. Please note it can take up to 2 weeks to complete your request. [phone] DISABILITY FORMS This category includes any form [...] for a private room? All rooms at [facility] are private. Do you have a social media developer available? A social media developer is assigned to our team. How can I help my family plan for my discharge? From the moment a patient is admitted, the [facility] begin to plan for the patient s discharge. Plan to leave at 11am on the day of discharge. Discharge instructions will be given to the patient. The hospital nurse will discuss these with you. Does the [facility] precertify my surgery? Yes. The precertification department at [facility] will notify your insurance carrier. Who should I contact if I anticipate difficulty paying my bill? We want to make sure all patients have access to the quality healthcare services of [facility], and we are committed to working with you and your family to obtain appropriate financial assistance. You may contact the Office of Financial Counseling [phone] weekdays between 8am and 5pm to help determine whether you might qualify for an assistance program. Do I need to bring clothes from home to wear at the hospital? The [facility] will provide you with personal items. You may wish to bring a robe or slippers. Does the [facility] have a designated area for smoking? The [facility] does not permit smoking inside or outside the hospitals including parking areas and sidewalks. If you would like to quit, you can contact a tobacco water treatment specialist at [phone] or the [place] Tobacco QUIT LINE at [[phone] [phone]. Where can I find information about visitation, [...] someone after business hours? The office number, [phone] or [phone], is connected to an answering service after 4:30pm each weekday and on weekends, available 08/02. What number should I call if I have billing questions? Please call [facility] Central Business Office at [phone]. Please Note: In regards to longwall foreman pain control. You may need narcotic pain [...] call by 4 p.m., please call the [facility] Ambulatory Surgery Unit at . Follow these [...] the hospital. Do not wear makeup, nail micronesian or hair pins to the hospital. Please [...] a living will or durable power of estate attorney, please bring a copy of the documents with you. IF YOU USE CPAP BRING YOUR MACHINE WITH YOU TO THE HOSPITAL ALONG WITH THE PRESCRIPTION FOR CPAP PRESSURE LEVELS If you develop any illness, such as a cold, sore throat, cough, or fever, before your surgery, call the [facility] Ambulatory Surgery Unit at and our office [...] pulp Popsicles Ice Soft drinks Gatorade (Lemon Habematolel preferred) Clear broth or bouillon Jello Coffee [...] not red, orange, or purple in color. Lemon-confederated goshute is preferred. You may need to pour [...] program. You can also get help through: [facility] Tobacco Dependency [facility], National Quit Line, Cuban Lung Association, Cuban Cancer Society, Smokefree.gov website Stop Alcohol Use [...] resources helpful:Alcoholics Anonymous (AA) http://www.aa.org/ Rethinking Drinking https://www.rethinkingdrinking.[facility].nih.gov/ National [place] of Alcohol Abuse and Alcoholism https://niaaa.nih.gov/ Sasha Head 808-117-2851 -Inpatient, partial hospitalization and outpatient services for [...] Patient Controlled Analgesia (also known as a ORDER FILLER) A ORDER FILLER is a pain pump that could be [...] AM of surgery documented in this encounter [facility] 02-19-2022 Miscellaneous Notes Addended by: KARINE GALVAN on: 02/19/2022 04:15 PM Modules accepted: Orders INTESTINAL REFERRAL Let the person providing referral info know that you must speak directly to the patient. Our team cannot proceed with intake without communicating directly with the patient. 1) What is your (the patient's) direct phone contact number?- [phone] 2) What is your referring diagnosis? Appendix [...] resources available to cover travel expenses to [facility]? Yes We are currently flexible in offering initial virtual consultations for both surgery and transplant ONLY to patients living in [place], [place], and [place] through May 18, 2022. This may expand to other states depending on where the surgeon who conducts your initial visit is licensed (Dr. Wyatt is licensed in [place], [place], and [place]). If you are living in another state and desire an initial virtual consultation, you may choose to purchase a ZANY OXult. (Surgical or transplant evaluations are highly individualized and may be conducted either through your local providers or at the [facility]. The plan for your evaluation will [...] for any pre-surgical testing done at the [facility], and for any post-surgical stay in [place] depending on your post-surgical course. 8) Would you be interested in participating in [facility] Care Online Virtual Visits for the psychosocial screening? - Yes If the patient says no, proceed as normal. If yes, please e-mail the patient and copy the social media developer on it. She will need them to [...] have been over the past 1 year? [facility] (Submit ALL template in EPatentspinhealth, AND for transplant patients submit MOST RECENT template) -Where else have you been for surgeries or testing and what years? Where/when was your very first abdominal surgery? Same as above 1st abdominal surgery- 01/2022 (Submit ALL template in [facility]pinhealth) 10) How many drinks of alcohol do [...] On medication - Psychiatrist (Submit request in ECertificationPoint) 15) Do you have a Power of Landscape Artist (POA)? Do you have a Living Will?- No If so, please bring a copy of this to your appointment. 16) For females: When and where was your last mammogram (40 and up) and pap smear (16 and up)? - Needs to be within last year.- PAP- Never had & Mammo- No (Submit request in ECertificationPoint) 17) For all patients: When and where was your last dental visit? - Needs to be within last 6 months.- about 6 months ago (Submit request in ECertificationPoint) 18) If transplant- Ask patient to obtain their immunization records and have them sent to us via mail/fax.- COVID- Yes The patient has been entered into Edit, chart is created, and request to [employer] for medical records has been generated. Financial clearance has been submitted for rehab/transplant (if on TPN or has dysmotility, submit for both rehab & transplant). Chart will be given to dental patient coordinator. Referral received from Dr. Rodney Olivas from [facility] ([phone]) to Dr. Davies. 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 Will call patient to start intake. documented in this encounter [facility] 12-22-2021 Evaluation note Encounter Date Diagnosis [...] Follow up with primary care provider or foot gatherer if no improvement of symptoms. 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 [facility] Diagnosis Primary malignant neuroendocrine tumor of appendix Post-operative pain Other acute postoperative pain Primary malignant neuroendocrine tumor of appendix [facility] Diagnosis Primary malignant neuroendocrine tumor of appendix- Primary [facility] Diagnosis Primary malignant neuroendocrine tumor of appendix- Primary [facility] Diagnosis Primary malignant neuroendocrine tumor of appendix [facility] Diagnosis Primary malignant neuroendocrine tumor of appendix [facility] Diagnosis Carcinoid syndrome- Primary SOB (shortness of breath) Shortness of breath Tachycardia Tachycardia, unspecified Antinuclear antibody (HUNTER) titer greater than 1:80 Primary malignant neuroendocrine tumor of appendix [facility] Diagnosis Primary malignant neuroendocrine tumor of appendix [facility] Diagnosis Carcinoid syndrome SOB (shortness of breath) Shortness of breath Tachycardia Tachycardia, unspecified Primary malignant neuroendocrine tumor of appendix [facility] Diagnosis Fibromyalgia muscle pain- Primary Mylagia and myositis, unspecified [facility] Primary malignant neuroendocrine tumor of appendix- Primary [facility] Diagnosis Primary malignant neuroendocrine tumor of appendix [facility] Diagnosis 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 Neoplasm of unspecified nature of digestive system [facility] N[facility]ative - Reported* Type Description Date Medical History chronic depression See[employer] Other Reason for referral (narrative)* (Routine) Specialty Diagnoses / Procedures Referred By Contac t Referred To Contact [place] [address] [place] [address] Referral ID Status Reason Start Date Expiration Date Visits Re quested Visits Authorized * (Routine) - New Request Specialty Diagnoses / Procedures Referred By Contac t Referred To Contact Procedures PLATELET MONITORING PER PROTOCOL Suman Baker MD, PhD [address] [place] [address] Referral ID Status Reason Start Date Expiration Date V isits Requested Visits Authorized [id number] New Request 05/22/2022 06/16/2023 1 1 * (Routine) - New Request Specialty Diagnoses / Procedures Referred By Contac t Referred To Contact Procedures DVT/VTE RISK ASSESSMENT Suman Baker MD, PhD [address] [place] [address] Referral ID Status Reason Start Date Expiration Date V isits Requested Visits Authorized [id number] New Request 05/22/2022 06/16/2023 1 1 * (Routine) - New Request Specialty Diagnoses / Procedures Referred By Contac t Referred To Contact Procedures NO MECHANICAL DVT PROPHYLAXIS Liza Cisneros PA-C [address] [place] [address] Referral ID Status Reason Start Date Expiration Date V isits Requested Visits Authorized [id number] New Request 05/22/2022 06/16/2023 1 1 [facility] Consultation (Routine) - New Request Specialty Diagnoses / Procedures Referred By Katharine morales Referred To Contact Oncology Diagnoses Primary malignant neuroendocrine tumor of appendix Carlos Gomes APRN-CNP [address] [place] [address] Andreas Ortega MD, MPH [address] [address] Referral ID Status Reason Start Date Expiration Date V isits Requested Visits Authorized [id number] New Request 06/09/2022 07/04/2023 1 1 * MRI/CAT Scan (Routine) - New Request Specialty Diagnoses / Procedures Referred By Katharine morales Referred To Contact Diagnoses Primary malignant neuroendocrine tumor of appendix Procedures CT ABDOMEN/PELVIS WITH CONTRAST CHG CT SCAN,ABDOMENT AND PELVIS,W CONTRAST Carlos Gomes APRN-CNP [address] [place] [address] Referral ID Status Reason Start Date Expiration Date V isits Requested Visits Authorized [id number] New Request 06/09/2022 07/04/2023 1 1 [facility] for referral (narrative)* Consultation (Routine) - New Request Specialty Diagnoses / Procedures Referred By Katharine morales Referred To Contact Genetics Diagnoses Primary malignant neuroendocrine tumor of appendix Yudelka Moralez APRN-CNP [address] [place] [address] Erin Stoner [facility] [address] [address] Referral ID Status Reason Start Date Expiration Date V isits Requested Visits Authorized [id number] New Request 07/08/2022 08/02/2023 1 1 * MRI/CAT Scan (Routine) - New Request Specialty Diagnoses / Procedures Referred By Contac t Referred To Contact Diagnoses Primary malignant neuroendocrine tumor of appendix Procedures CT ABDOMEN/PELVIS WITH AND WITHOUT CONTRAST CHG CT SCAN,ABDOMENT AND PELVIS,Andreas Ellis MD, MPH [address] [facility] [address] [place] [address] Referral ID Status Reason Start Date Expiration Date V isits Requested Visits Authorized [id number] New Request 07/08/2022 08/02/2023 1 1 * Radiology (Routine) - New Request Specialty Diagnoses / Procedures Referred By Contac t Referred To Contact Diagnoses Primary malignant neuroendocrine tumor of appendix Procedures NUC PET NEUROENDOCRINE CHG NUC THERAPY HYPERTHYROID SUBSEQUENT Yudelka Moralez, CONCESSION ATTENDANT-GRIP [address] [place] [address] Referral ID Status Reason Start Date Expiration Date V isits Requested Visits Authorized [id number] New Request 07/08/2022 08/02/2023 1 1 [facility] Auth/Cert Specialty Diagnoses / Procedures Referred By Katharine t Referred To Contact Diagnoses 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] Procedures OH CHG HYPERTHERMIA RX INTRACAV PROBE OH PART REMOVAL COLON W ANASTOMOSIS OH RESECT RECURRENT HEART DOCTOR MALIG 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) COLECTOMY PARTIAL OPEN DEBULKING INTRA-ABDOMINAL/PELVIC/RETROPE RITONEAL W/ OMENECTOMY & PELVIC PARA-AORTIC LYMPHADENECTOMY Suman Baker MD, PhD [address] [place] [address] [facility] [address] [place] [address] Referral ID Status Reason Start Date Expiration Date Visits Re quested Visits Authorized [id number] 1 1 [facility] Summary Purpose Family History No Family [...] SOB (shortness of breath) Tachycardia Procedures ECHOCARDIOGRAM [place] ECHO HEART XTHORACIC,COMPLETE W DOPPLER Yudelka Moralez APRN-GRIP [address] [place], [place] Echocardiography [place] [address] [place] [address] Referral ID Status Reason Start Date Expiration Date V isits Requested Visits Authorized [id number] Auth Not Needed 10/07/2022 11/01/2023 1 1 Specialty Diagnoses / Procedures Referred By Contac t Referred To Contact Diagnoses Primary malignant neuroendocrine tumor of appendix Procedures CT NECK WITH CONTRAST [place] CT NECK TISSUE CONTRAST Yudelka Moralez APRN-GRIP [address] [place], [place] Referral ID Status Reason Start Date Expiration Date V isits Requested Visits Authorized [id number] New Request 10/07/2022 11/01/2023 1 1 Specialty Diagnoses / Procedures Referred By Contac t Referred To Contact Diagnoses Carcinoid syndrome SOB (shortness of breath) Tachycardia Primary malignant neuroendocrine tumor of appendix Procedures CT CHEST WITH CONTRAST CHG DIAGNOSTIC COMPUTED TOMOGRAPHY THORAX W/CONTRAST Yudelka Moralez APRN-GRIP [address] [place] Referral ID Status Reason Start Date Expiration Date V isits Requested Visits Authorized [id number] New Request 10/07/2022 11/01/2023 1 1 Specialty Diagnoses / Procedures [facility] Referred To Contact Oncology Diagnoses Carcinoid syndrome SOB (shortness of breath) Tachycardia Yudelka Moralez APRN-GRIP [address] [place], [place] Referral ID Status Reason Start Date Expiration Date V isits Requested Visits Authorized [id number] New Request 10/07/2022 11/01/2023 1 1 Specialty Diagnoses / Procedures Referred By Contac t Referred To Contact Rheumatology Diagnoses Antinuclear antibody (HUNTER) titer greater than 1:80 Yudelka Moralez APRN-GRIP [address] [place] [phone] Referral ID Status Reason Start Date Expiration Date V isits Requested Visits Authorized [id number] New Request 10/07/2022 11/01/2023 1 1 Specialty Diagnoses / Procedures Referred By Contac t Referred To Contact Diagnoses Primary malignant neuroendocrine tumor of appendix Procedures CT ABDOMEN/PELVIS WITH CONTRAST CHG CT SCAN,ABDOMENT AND PELVIS,W CONTRAST Carlos Gomes CONCESSION ATTENDANT-GRIP [address] [facility] [address]th [place] [address] Referral ID Status Reason Start Date Expiration Date Visits Re quested Visits Authorized [id number] Closed 03/19/2022 04/13/2023 1 1 Specialty Diagnoses / Procedures Referred By Contac t Referred To Contact TRANSPLANT Diagnoses Cancer of appendix (HCC) Procedures CONSULT TO TRANSPLANT CENTER EXPLORATORY LAPAROTOMY CELIOTOMY W/WO BIOPSY SPX Vernon Davies MD [address] [place] [address] [facility] [address] [place] [address] Referral ID Status Reason Start Date Expiration Date Visits Requested Visits Authorized [id number] Pending Review Financial Clearance Required - OON Payor 02/19/2022 02/19/[phone] Additional Source Comments INFORMATION SOURCE (unrecogn ized section and content) DATE CREATED AUTHOR 02/19/2021 Rohit Buckingham [facility] DATE CREATED AUTHOR AUTHOR'S ORGANIZ ATION 01/03/2022 [facility] DATE CREATED AUTHOR AUTHOR'S ORGANIZ ATION 12/25/2022 [facility] DATE CREATED AUTHOR AUTHOR'S ORGANIZ ATION 04/24/2023 [facility] DATE CREATED AUTHOR AUTHOR'S ORGANIZ ATION 08/10/2023 [facility] dical Specialists EPIC REASON FOR VISIT (unrecogniz ed section and content) Reason Comments Referral Request Specialty Diagnoses / Procedures Referred By Contac t Referred To Contact Diagnoses Primary malignant neuroendocrine tumor of appendix Procedures CT ABDOMEN/PELVIS WITH CONTRAST CHG CT SCAN,ABDOMENT AND PELVIS,W CONTRAST Carlos Gomes CONCESSION ATTENDANT-[facility] [address] [place] [address] Referral ID Status Reason Start Date Expiration Date Visits Re quested Visits Authorized [id number] Closed 03/19/2022 04/13/2023 1 1 Reason Comments New Patient Specialty Diagnoses / Procedures Referred By Contac t Referred To Contact Surgical Oncology Diagnoses New patient - Appendix NET - External: Dr. Timmy Hall - Preferred: Oanh Procedures NEW [place]RRA[place] SURGERY Self, Self Suman Baker MD, PhD [address] [place] [address] Referral ID Status Reason Start Date Expiration Date Visits Re quested Visits Authorized [id number] Closed 03/19/2022 04/13/2023 1 1 Reason Comments [...] malignant neuroendocrine tumor of appendix Carlos Gomes CONCESSION ATTENDANT-[facility] [address] [place] [address] Andreas Ortega MD, MPH [address] [facility] [address] [place] [address] Referral ID Status Reason Start Date Expiration Date V isits Requested Visits Authorized [id number] New Request 06/09/2022 07/04/2023 1 1 Specialty Diagnoses / Procedures Referred By Contac t Referred To Contact Diagnoses Primary malignant neuroendocrine tumor of appendix Procedures NUC PET NEUROENDOCRINE CHG NUC THERAPY HYPERTHYROID SUBSEQUENT Yudelka Moralez CONCESSION ATTENDANT-GRIP [address] [place] [address] Referral ID Status Reason Start Date Expiration Date Visits Re quested Visits Authorized [id number] Closed 07/08/2022 08/02/2023 1 1 Specialty Diagnoses / Procedures Referred By Katharine t Referred To Contact Diagnoses Primary malignant neuroendocrine tumor of appendix Procedures CT ABDOMEN/PELVIS WITH AND WITHOUT CONTRAST CHG CT SCAN,ABDOMENT AND PELVIS,Andreas Ellis MD, MPH [address] [facility] [address] [place] [address] Referral ID Status Reason Start Date Expiration Date Visits Re quested Visits Authorized [id number] Closed 07/08/2022 08/02/2023 1 1 Reason Comments [...] of appendix Procedures CT NECK WITH CONTRAST [place] CT NECK TISSUE CONTRAST Yudelka Moralez APRN-TASH [address] [place] [phone] Referral ID Status Reason Start Date Expiration Date Visits Re quested Visits Authorized [id number] Closed 10/07/2022 11/01/2023 1 1 Specialty Diagnoses / Procedures Referred By Katharine t Referred To Contact Echocardiography Diagnoses Carcinoid syndrome SOB (shortness of breath) Tachycardia Procedures ECHOCARDIOGRAM [place] ECHO HEART XTHORACIC,COMPLETE W DOPPLER Yudelka Moralez, CONCESSION ATTENDANT-GRIP [address] [place] [address] Echocardiography [place] [address] [facility] [address] [place] [address] Referral ID Status Reason Start Date Expiration Date Visits Re quested Visits Authorized [id number] Closed 10/07/2022 11/01/2023 1 1 Specialty Diagnoses / Procedures Referred By Katharine morlaes Referred To Contact Diagnoses Carcinoid syndrome SOB (shortness of breath) Tachycardia Primary malignant neuroendocrine tumor of appendix Procedures CT CHEST WITH CONTRAST CHG DIAGNOSTIC COMPUTED TOMOGRAPHY THORAX W/CONTRAST Yudelka Moralez APRN-GRIP [address] [place] [address] Referral ID Status Reason Start Date Expiration Date Visits Re quested Visits Authorized [id number] Closed 10/07/2022 11/01/2023 1 1 Reason Comments New Patient Referred by Dorothy Moralez NP for JR. 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 Joint achy/flu symptoms, tachcardia, + HUNTER. 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 Procedures MRI ABDOMEN/PELVIS WITHOUT CONTRAST [place] MRI, ABDOMEN (MRI) [place] MRI, PELVIS, W/O CONTRAST Yudelka Moralez, CONCESSION ATTENDANT-GRIP [address] [place] [phone] Referral ID Status Reason Start Date Expiration Date Visits Re quested Visits Authorized [id number] Closed 03/09/2023 04/02/2024 1 1 Source Comments (unrecognize d section and content) In the event this informatio n is protected by the Federal Confidentiality of Alcohol and Drug Abuse Patient Records regulations: The Federal rules restrict any use of the information to criminally investigate or prosecute any alcohol or drug abuse patient.[facility] Care Teams (unrecognized sec tion and content) Industrial Gas Servicer Supervisor Relationship Specialty Start Date End Date Erin Sams RN PCP - General 03/19/22 Rodney Olivas MD [address] [place] [phone] Hematology 03/19/22 Industrial Gas Servicer Supervisor Relationship Specialty Start Date End Date Erin Sams RN PCP - General 03/19/22 Rodney Olivas MD [address] [place] [phone] Hematology 03/19/22 Industrial Gas Servicer Supervisor Relationship Specialty Start Date End Date Erin Sams RN PCP - General 03/19/22 Rodney Olivas MD [address] [place] [phone] Hematology 03/19/22 Industrial Gas Servicer Supervisor Relationship Specialty Start Date End Date Erin Sams RN PCP - General 03/19/22 Rodney Olivas MD [address] [place] [phone] Hematology 03/19/22 Industrial Gas Servicer Supervisor Relationship Specialty Start Date End Date Erin Sams RN PCP - General 03/19/22 Rodney Olivas MD [address] [place] [phone] Hematology 03/19/22 Suman Baker MD, PhD [address] [place] [address] Surgeon Surgical Oncology 07/08/22 Industrial Gas Servicer Supervisor Relationship Specialty Start Date End Date Erin Sams RN PCP - General 03/19/22 Rodney Olivas MD [address] [place] [address] Hematology 03/19/22 Suman Baker MD, PhD [address] [place] [address] Surgeon Surgical Oncology 07/08/22 Industrial Gas Servicer Supervisor Relationship Specialty Start Date End Date Erin Sams RN PCP - General 03/19/22 Rodney Olivas MD [address] [place] [address] Hematology 03/19/22 Suman Baker MD, PhD [address] [place] [address] Surgeon Surgical Oncology 07/08/22 Industrial Gas Servicer Supervisor Relationship Specialty Start Date End Date Erin Sams RN PCP - General 03/19/22 Rodney Olivas MD [address] [place] [address] Hematology 03/19/22 Suman Baker MD, PhD [address] [place] [address] Surgeon Surgical Oncology 07/08/22 Cheikh Coelho MD [address] [place] [address] [employer] Installer Cardiovascular Disease 10/07/22 Industrial Gas Servicer Supervisor Relationship Specialty Start Date End Date Erin Sams RN PCP - General 03/19/22 Rodney Olivas MD [address] [place] [address] Hematology 03/19/22 Suman Baker MD, PhD [address] [place] [address] Surgeon Surgical Oncology 07/08/22 Cheikh Coelho MD [address] [place] [address] [employer] Installer Cardiovascular Disease 10/07/22 Industrial Gas Servicer Supervisor Relationship Specialty Start Date End Date Erin Sams RN PCP - General 03/19/22 Rodney Olivas MD [address] [place] [phone] Hematology 03/19/22 Suman Baker MD, PhD [address] [place] [address] Surgeon Surgical Oncology 07/08/22 Cheikh Coelho MD [address] [place] [phone] [employer] Installer Cardiovascular Disease 10/07/22 Industrial Gas Servicer Supervisor Relationship Specialty Start Date End Date Erin Sams RN PCP - General 03/19/22 Rodney Olivas MD [address] [place] [phone] Hematology 03/19/22 Suman Baker MD, PhD [address] [place] [address] Surgeon Surgical Oncology 07/08/22 Cheikh Coelho MD [address] [place] [address] [employer] Installer Cardiovascular Disease 10/07/22 Industrial Gas Servicer Supervisor Relationship Specialty Start Date End Date Erin Sams RN PCP - General 03/19/22 Rodney Olivas MD [address] [place] [address] Hematology 03/19/22 Suman Baker MD, PhD [address] [place] [address] Surgeon Surgical Oncology 07/08/22 Cheikh Coelho MD [address] [place] [address] [employer] Installer Cardiovascular Disease 10/07/22 Industrial Gas Servicer Supervisor Relationship Specialty Start Date End Date Erin Sams GRIP [address] [place] [address] PCP - General 03/10/23 Rodney Olivas MD [address] [place] [address] Hematology 03/19/22 Suman Baker MD, PhD [address] [place] [address] Surgeon Surgical Oncology 07/08/22 Cheikh Coelho MD [address] [place] [address] [employer] Installer Cardiovascular Disease 10/07/22 Industrial Gas Servicer Supervisor Relationship Specialty Start Date End Date Erin Sams GRIP [address] [place] [address] PCP - General 03/10/23 Rodney Olivas MD [facility] [place] [address] Hematology 03/19/22 Suman Baker MD, PhD [address] [place] [address] Surgeon Surgical Oncology 07/08/22 Cheikh Coelho MD [address] [place] [phone] [employer] Installer Cardiovascular Disease 10/07/22 Scheduled Active and Recently [...] Verify - Provider: Yadira Grier RN)0659 (Epidural Rosa Volume/Shift Total - Provider: Yadira Grier RN - Comment: shift total: 175 ml remaining)1105 (Rate/Dose Verify - Provider: Alena Wade RN)1122 (Rate/Dose Verify - Provider: Alena Wade RN)1459 (Rate/Dose Verify - Provider: Alena Wade RN)1555 (Rate/Dose Verify - Provider: Alena Wade RN)1848 (Rate/Dose Verify - Provider: Alena Wade RN)1849 (Rate/Dose Verify - Provider: Alena Wade, RN)1910 (Epidural Rosa Volume/Shift Total - Provider: Alena Wade RN - Comment: 100mL left in cartridge) 0100 (Epidural Rosa Volume/Shift Total - Provider: Craig Pagan RN [...] BE BASED ON THE PRIMARY CLINICAL RECORDS. [employer] [facility]. provides no warranty or guarantee of the accuracy or completeness of information in this document.
[2023-08-21 14:45] LABS: Total Protein Urine Random 10.5 mg/dL (<=11.9)
[2023-08-21 14:52] LABS: Total Protein 24 Hour Urine 123.4 mg/24hr (<=149.1); Total Volume 24 Hour Urine 1175 mL/24hr
== END 2023-08-21 13:56 | disposition home or self-care (01) ==
LOC: LAB 13:55
PROVIDERS: PCP Nurse Practitioner Family; Visit Provider Obstetrics & Gynecology
DX: R80.9 Proteinuria, unspecified (principal)
CPT/HCPCS: 81050; 84156

== ENCOUNTER 2023-09-06 20:21 | Outpatient (REF) | payer OTHER, SELFPAY ==
--- OUTSIDE RECORDS SUMMARY | 2023-09-06 20:26 | XMS_ITS | CCD ---
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..] SAMS Attending Unavailable ERIN SAMS Admitting Unavailable LATRELL ERIN Consulting Unavailable LATRELL, ERIN Primary Care Unavailable SARAHI OLIVA Attending Unavailable SARAHI OLIVA Admitting Unavailable SARAHI OLIVA Consulting Unavailable LATRELL, ERIN Primary Care Unavailable [facility], DR DOCTOR Admitting Unavailable MISC, DOCTOR Consulting Unavailable MISC, DR DOCTOR Attending Unavailable LATRELL, ERIN Consulting Unavailable LATRELL, ERIN Attending Unavailable LATRELL, ERIN Admitting Unavailable LATRELL, ERIN Primary Care Unavailable MISC, DR DOCTOR Admitting Unavailable LATRELL, ERIN Primary Care Unavailable MISC, DR DOCTOR Attending Unavailable MISC, DR DOCTOR Consulting Unavailable LATRELL, ERIN Consulting Unavailable LATRELL, ERIN Attending Unavailable LATRELL, ERIN Admitting Unavailable LATRELL, ERIN Primary Care Unavailable MISC, DOCTOR Admitting Unavailable MISC, DR JACOBO Consulting Unavailable MISC, DR DOCTOR Attending Unavailable LATRELL, ERIN Primary Care [...] ., DR TIMMY Sibley Admitting Unavaila ble ZIEBTOREY, DR CAROLYN Quarles Consulting Unavailable HAY ., DR CARMONA Consulting Unavailable AGUBOSIM, JOSÉ LUIS Consulting Unavailable MISC, DR JACOBO Admitting Unavailable LATRELL, ERIN Primary Care Unavailable MISC, DR JACOBO Consulting Unavailable MISC, DR DOCTOR Attending Unavailable LATRELL, ERIN Consulting Unavailable LATRELL, ERIN Attending Unavailable LATRELL, ERIN Primary Care Unavailable LATRELL, ERIN Admitting Unavailable Deisy DUPONT, Rodney Unavailable Oanh DUPONT, PhD, Suman Naylor Unavailable Cheikh Coelho MD Unavailable Erin Sams CNP [...] Attending Unavailable JORDAN, ANDREAS Referring Unavailable LATRELL, EIRN Primary Care Unavailable CHEIKH COELHO Attending Unavailable [...] Care Unavailable ERIN SAMS Primary Care Unavailable ERIN SAMS Primary Care Unavailable SUMAN BAKER Attending Unavailable SELF, SELF Referring Unavailable RON RUANO Attending Unavailable LIZBET CAST Attending Unavailable RON RUANO Attending Unavailable RON RUANO Attending Unavailable Unavailable Primary Care Provider Unavailabl e Allergies Allergy Classification Reported Allergen(s) Allergy Type Date of Onset Reaction(s) Facility (10 sources) gabapentin Drug Allergy 10-07-2022 Nausea Only, Diarrhea [facility] Medications Current Medications Medication Drug Class(es) Dates Sig (Normalized) Sig (Original) amylase 743953 unt / lipase 00196 unt / protease 125184 unt delayed release oral capsule (8 sources) Start: 09-10-2022 Pancrelipase, Veb-Hqvq-Jvnl, (Creon) [id number] units Cap DR Particles Indications: Exocrine pancreatic insufficiency Take two caps [...] 05-29-2022 Enoxaparin Sodium (LOVENOX) injection 40 mg FLUoxetine 20 mg oral capsule (17 sources) Serotonin Reuptake Inhibitor Start: 08-17-2023 End: 08-16-2024 take 1 capsule by mouth in the morning FLUoxetine (PROzac) 20 MG capsule Indications: Depression with anxiety Take 1 capsule (20 mg) by mouth in the morning. 30 capsule 11 08/17/2023 08/16/2024 Active Start: 05-25-2022 End: 06-09-2022 FLUoxetine (PROZAC) capsule 40 mg take 2 capsules by m outh once daily FLUoxetine 20 MG capsule Take 2 capsules by mouth daily. 0 Active PROzac Active lamoTRIgine 100 mg oral tablet (8 sources) Mood Stabilizer, Anti-epileptic Agent lamoTRIgine 100 MG tablet daily. 0 Active take 2 tablets by mouth once kayden ly lamoTRIgine 25 MG tablet Take 2 tablets by mouth daily. 0 Active Magnesium Hydroxide (2 sources) Magnesium Hydrox anthony (MILK OF MAGNESIA PO) Take by mouth as needed. 0 Active metoclopramide 10 mg oral tablet (2 sources) Dopamine-2 Receptor Antagonist Start: 023 metoclopramide (Reglan) 10 MG tablet Indications: Heartburn during in third trimester Take 1 tablet (10 mg) by mouth in the morning and 1 tablet (10 mg) at noon and 1 tablet (10 mg) in the evening. Take before meals. Take 1 tablet by mouth 30 minutes prior to meals 3 times daily as needed for nausea.. 90 tablet 2 07/14/2023 Active Multiple Vitamin (multivitamin) capsule (8 sources) [...] omeprazole 20 mg delayed release oral capsule (17 sources) Proton Pump Inhibitor Start: 023 End: 024 take 1 capsule by mouth before mealtime omeprazole (PriLOSEC) [address] capsule Indications: Heart burn Take 1 capsule (20 mg) by mouth in the morning. Take before meals. Do not crush or chew. . 90 capsule 3 04/07/2023 04/06/2024 Active omeprazole [address] capsule Take 1 capsule by mouth as needed. 0 Active ondansetron 4 mg disintegrating oral tablet (14 sources) Serotonin-3 Receptor Antagonist Start: 06-30-2023 End: 09-28-2023 take 1 tablet by mouth every six hours ondansetron ODT (Zofran-ODT) 4 MG disintegrating tablet Indications: Nausea and vomiting, unspecified vomiting type Take 1 tablet (4 mg) by mouth every 6 (six) hours 120 tablet 1 06/30/2023 09/28/2023 Active Start: 11-25-2022 take 1 tablet by jodi th every [...] bedtime. 30 capsule 11 10/22/2022 04/20/2023 Active MV-Min-Fe Fum-FA-DHA ( 1 PO) (2 sources) MV-Min-Fe Fum-FA-DHA ( 1 PO) Probiotic Product (PROBIOTIC DAILY PO) (12 sources) [...] Sig (Original) acetaminophen 325 mg oral tablet (20 sources) Start: 05-26-2022 End: 05-29-2022 acetaminophen (TYLENOL) tablet 975 mg Start: 05-25-2022 End: 05-26-2022 acetaminophen (TYLENOL) oral solution 975 mg Start: 05-22-2022 End: 05-25-2022 acetaminophen (TYLENOL) tabl et 650 mg Start: 05-22-2022 End: 05-22-2022 acetaminophen (TYLENOL) tabl et 975 mg take 500 mg by mouth in the morning Acetaminophen (TYLENOL EXTRA STRENGTH PO) Take 500 mg by mouth in the morning. 0 Active 500 ml albumin human, residential 50 mg/ml injection (1 source) Human Serum [...] (BENADRYL) injection 25 mg (1 source) Start: 05-22-20 End: 05-29-20 diphenhydrAMINE (BENADRYL) injection 25 mg gabapentin 100 mg oral capsule (5 sources) Anti-epileptic Agent Start: 09-11-19 23 End: 11-11-19 23 take 2 capsules by mouth three times [...] Oral, DAILY AT BEDTIME, First dose on 05/25/22 at 2100, Until Discontinued Administer intact tablet [...] oral spray 2 spray polyethylene glycol 3350 32959 mg powder for oral solution (2 sources) Osmotic Laxative Start: 04-23-2022 End: 06-09-2022 polyethylene glycol 17 GM/SCOOP Powder powder 11 AM: Take entire contents over 2 hours as instructed. 250 g 0 04/23/2022 06/09/2022 Discontinued (Therapy completed) 100 ml potassium chloride 0.1 meq/ml injection (1 source) Start: 05-22-2022 End: 05-22-2022 potassium chloride 10 mEq in sterile water 100 ml premix IVPB sennosides, residential 8.6 mg oral tablet (3 sources) Start: [...] Translations: [Obesity, unspecified] Onset: 10-22-2022 10-22-2022 Chronic Other and delivery including normal (2 sources) Third trimester ; Translations: [Encounter for supervision of normal , unspecified, third trimester] 08-18-2023 Episodic Unclassified (1 source) CONTACT W/AND (SUSP) EXPOS COVID-19; Translations: [CONTACT W/AND (SUSP) EXPOS COVID-19] Onset: 04-06-2022 Unclassified (2 sources) OB Reminders Onset: 03-15-2023 03-15-2023 Past or Other Problems Problem Classification Problem [...] 08-14-2022 Episodic Other aftercare (1 source) Other [facility] (current) drug therapy; Translations: [OTH [employer] CURRENT DRUG THERAPY] Onset: 04-09-2022 Episodic Other [...] Aon 03-11-2023 Chromogranin A <20 Normal <93 [facility] Comment on above: Result Comment: ADDITIONAL INFORMATION This test was developed and its performance characteristics determined by [facility] in a manner consistent with CLIA [...] a homogeneous time-resolved immunofluorescent assay manufactured by [employer] and performed on the [employer] Kryptor Compact Plus. Values obtained with different assay methods or kits may be different and cannot be used interchangeably. Test results cannot be interpreted as absolute evidence for the presence or absence of malignant disease. Test Performed by: [facility] [address] [id number] Belt Maker: Ed Russo M.D. Ph.D.; CLIA# [id number] Performed By: #### C A, IPB, CHM7, MGO #### [facility] ([facility]) [address] [place] [address] MRI ABDOMEN/PELVIS WITHOUT [facility] 03-11-2023 MRI ABDOMEN/PELVIS WITHOUT CONTRAST EXAM: MRI [...] not well visualized on this exam. Normal [facility] IMPRESSION: 1. Stable postoperative changes from [...] is not well visualized on this exam. [facility] Radiology Study observation (narrative) [facility] MRI ABDOMEN/PELVIS WITHOUT C ONTRASTOrdered By: Mandi Montiel on 03-11-2023 [facility] Work Phone: CT ABDOMEN/PELVIS WITH AND [...] nodes and have decreased in size. Normal [facility] CT CHEST WITH CONTRASTon CT CHEST [...] have reviewed and approved this report. Normal [facility] CT Chest W contrast Jason [...] No suspicious osseous lesion. RADIOLOGY Benjamin Santos MB/SHEBA - 10/23/2022 EXAM: CT CHEST WITH CONTRAST, [...] I have reviewed and approved this report. [facility] CT Chest W contrast IVOrdere d By: Benjamin Santos on 10-23-[address] [facility] [address] Chest W contrast Jason Radiology Study observation (narrative) [facility] CT NECK WITH CONTRASTon 04-0 CT NECK WITH CONTRAST EXAM: CT NECK [...] mass or adenopathy in the neck. Normal [facility] CT Neck W contrast Jason 04-0 IMPRESSION: Examination is within normal limits. Negative [...] for mass or adenopathy in the neck. [facility] Radiology Study observation (narrative) [facility] CT Neck W contrast IVOrdered By: Miguel Espinal on 10-22-2022 [facility] Work Phone: Cardiac echo study Procedure Ordered By: Guerrero Carvalho on 10-22-2022 Ao peak raj 1.26 m/s [facility] Work Phone: Ao VTI 19.98 cm [facility] Work Phone: Ascending aorta 2.62 cm [facility] Work Phone: AV LVOT peak gradient 3 [facility]: [facility] gradient [facility]: [facility] peak gradient 6 mmHG [facility] Work Phone: AV valve area 2.24 cm2 [facility] Work Phone: AV Velocity Ratio 0.70 [facility] Work Phone: FRANK (continuity Vmax) 1.82 cm2 [facility] Work Phone: FRANK (continuity VTI) 2.24 cm2 [facility] Work Phone: FRANK index (continuity Vmax) 1.06 m/s [facility] Work Phone: FRANK index (continuity VTI) 1.30 cm2/m2 [facility] Work Phone: Avg e' pk raj 0.15 m/s [facility] Work Phone: Avg E/e' ratio 4.89 [facility] Work Phone: Body surface area Derived from formula 1.72 m2 [facility] Work Phone: BP EF 62 % [facility] Work Phone: DI (Vmax) 0.70 [facility] Work Phone: DI (VTI) 0.86 m/2 [facility] Work Phone: E wave decelartion time 217.58 msec [facility] Work Phone: e' lateral pk raj 0.1597 m[facility] Work Phone: e' lateral pk raj 0.16 m[facility] Work Phone: e' septal pk raj 0.1401 m/s [facility] Work Phone: e' septal pk raj 0.14 m/s [facility] Work Phone: E/A ratio 0.74 [facility] Work Phone: E/e' lateral ratio 4.57 [facility] Work Phone: E/e' septal ratio 5.21 [facility] Work Phone: EF SP 2CH 64 [facility] Work Phone: EF SP 4CH 59 [facility] Work Phone: FS 33 % 28 - 44 % [facility] Work Phone: IVC ostium 1.46 cm [facility] Work Phone: IVS 0.61 cm [facility] Work Phone: LA AREA 2CH 13.72 cm2 [facility] Work Phone: LA area 4CH 9.33 cm2 [facility] Work Phone: LA ESV BP (MOD) 29 mL [facility] Work Phone: LA ESV BP (MOD) index 17 mL/m2 [facility] Work Phone: LA ESV SP 2CH (MOD) 37 mL [facility] Work Phone: LA ESV SP 4CH (MOD) 19 mL [facility] Work Phone: Long Strain -21.7 % [facility] Work Phone: LV EDV BP 71 mL [facility] Work Phone: LV EDV SP 2CH 76 mL [facility] Work Phone: LV EDV SP 4CH 61 mL [facility] Work Phone: LV ESV BP 27 mL [facility] Work Phone: LV ESV SP 2CH 27 mL [facility] Work Phone: LV ESV SP 4CH 25 mL [facility] Work Phone: LV mass 68.53 g [facility] Work Phone: LV Mass Index 39.8 g/m2 [facility] Work Phone: LV RWT 0.30 [facility] Work Phone: LV stroke volume BP (ml) 44 mL [facility] Work Phone: LV stroke volume index BP 25.58 mL/m2 [facility] Work Phone: LVIDD 4.10 cm [facility] Work Phone: LVIDS 2.73 cm [facility] Work Phone: LVOT area 2.60 cm2 [facility] Work Phone: LVOT diameter 1.82 cm [facility] Work Phone: LVOT peak raj 0.88 m/s [facility] Work Phone: LVOT peak VTI 17.19 cm [facility] Work Phone: LVOT stroke volume 45 cm3 [facility] Work Phone: LVOT stroke volume index 25.99 ml/m2 [facility] Work Phone: MV pk A raj 0.98 m/s [facility] Work Phone: MV pk E raj 0.73 m/s [facility] Work Phone: MV stenosis pressure 1/2 time 63.10 ms [facility] Work Phone: MV valve area p 1/2 method 3.49 cm2 [facility] Work Phone: [facility]SU AV VTI RATIO PRE STRESS 0.86 [facility] Work Phone: OSU ECHO LV BIPLANE SYSTOLIC VOLUME INDEX 15.70 mL/m2 [facility] Work Phone: OSU ECHO LV BP DIASTOLIC VOLUME INDEX 41.28 mL/m2 [facility] Work Phone: PV peak gradient 4 mmHg [facility] Work Phone: PV PK RAJ 0.97 m/s [facility] Work Phone: PW 0.61 cm [facility] Work Phone: RA vol index 4CH (MOD) 12.79 mL/m2 [facility] Work Phone: Right atrium volume 4 chamber method of disks 22 mL [facility] Work Phone: RV Area diastolic 21.85 cm2 [facility] Work Phone: RV Area systolic 11.51 cm2 [facility] Work Phone: RV basal diam 3.02 cm [facility] Work Phone: RV Fractional area change 47.3 % [facility] Work Phone: RV long diam 7.35 cm [facility] Work Phone: RV Long Strain -28.0 % [facility] Work Phone: RV mid diam 2.68 cm [facility] Work Phone: RV S' 12.55 cm/s [facility] Work Phone: RVOT peak gradient 1 mmHg [facility] Work Phone: RVOT peak raj 0.59 m/s [facility] Work Phone: Sinus 2.70 cm [facility] Work Phone: STJ 2.41 cm [facility] Work Phone: Stroke Volume 45 cm/mL [facility] Work Phone: Stroke volume index 26 [facility] Work Phone: TAPSE 2.03 cm [facility] Work Phone: [facility] Work Phone: Cardiac echo study Procedure [...] ventricular strain) was performed. Imaging system used: [employer]. Indications Indications for study: chest pain, other, tachycardia and shortness of breath - Neuroendocrine tumor, LAMN. Wall Scoring Score Index: 1.00 The left ventricular wall motion is normal. [facility] Radiology Study observation (narrative) [facility] ECHOCARDIOGRAMon 10-22-2022 Echocardiography ? Left Ventricle: [...] Role Read Date Guerrero Carvalho MD Test Music Historian, [employer] [place] 10/22/2022 Wall Scoring Score Index: 1.00 The [...] RA vol (more content not included)... Normal [facility] B-TYPE NATRIURETIC PEPTIDE ( BRAIN)on 10-07-2022 Interpretation and review of laboratory results Normal [facility] Natriuretic peptide B (Bld) [Mass/Vol] 4 pg/mL 0 - 100 pg/mL [facility] Natriuretic peptide B (Bld) [Mass/Vol] 4 pg/mL Normal 0-100 [facility] Comment on above: Performed By: #### C Danielle, RODRIGO, CHM7, MGO #### [facility] (DEFAULT) [address] [place] [address] CBC AND ELECTRONIC DIFFon Basophils (Bld) [#/Vol] 0.04 10*3/uL Normal 0.00-0.15 [facility] Comment on above: Performed By: #### C A, IPB, CHM7, MGO #### [facility] (DEFAULT) [address] [place] [address] Basophils/100 WBC (Bld) 0.6 % Normal [facility] Comment on above: Performed By: #### C A, IPB, CHM7, MGO #### [facility] (DEFAULT) [address] [place] [address] DIFF STATUS Electronic Differential Normal [facility] Comment on above: Performed By: #### C A, IPB, CHM7, MGO #### [facility] (DEFAULT) [address] [place] [address] Eosinophils (Bld) [#/Vol] 0.18 10*3/uL Normal 0.00-0.42 [facility] Comment on above: Performed By: #### C A, IPB, CHM7, MGO #### [facility] (DEFAULT) [address] [place] [address] Eosinophils/100 WBC (Bld) 2.5 % Normal [facility] Comment on above: Performed By: #### C A, IPB, CHM7, MGO #### [facility] (DEFAULT) [address] [place] [address] Hematocrit (Bld) [Volume fraction] 39.3 % Normal 34.9-44.3 [facility] Comment on above: Performed By: #### C A, IPB, CHM7, MGO #### [facility] (DEFAULT) [address] [place] [address]60 Hemoglobin (Bld) [Mass/Vol] 12.5 g/dL Normal 11.4-15.2 [facility] Comment on above: Performed By: #### C A, IPB, CHM7, MGO #### [facility] (DEFAULT) [address] [place] [address] Immature Grans % 0.4 % Normal [facility] Comment on above: Performed By: #### C A, IPB, CHM7, MGO #### [facility] (DEFAULT) [address] [place] [address] Immature Grans Absolute < Normal <=0.08 [facility] Comment on above: Performed By: #### C A, IPB, CHM7, MGO #### [facility] (DEFAULT) [address] [place] [address]60[address] Lymphocytes (Bld) [#/Vol] 2.19 10*3/uL Normal 1.16-3.51 [facility] Comment on above: Performed By: #### C A, IPB, CHM7, MGO #### [facility] (DEFAULT) [address] [place] [address]89 Lymphocytes/100 WBC (Bld) 30.6 % Normal [facility] Comment on above: Performed By: #### C A, IPB, CHM7, MGO #### [facility] (DEFAULT) [address] [place] [address]110[address] MCV (RBC) [Entitic vol] 84.2 fL Normal 79.6-97.7 [facility] Comment on above: Performed By: #### C A, IPB, CHM7, MGO #### [facility] (DEFAULT) [address] [place] [address] 10725 Mean Cell Hgb 26.8 pg Normal 25.9-33.9 [facility] Comment on above: Performed By: #### C A, IPB, CHM7, MGO #### [facility] (DEFAULT) [address] [place] [address] 36500 Mean Cell Hgb Conc 31.8 g/dL Normal 31.4-35.9 [facility] Comment on above: Performed By: #### C A, IPB, CHM7, MGO #### [facility] (DEFAULT) [address] [place] [address]91 Monocytes (Bld) [#/Vol] 0.50 10*3/uL Normal 0.22-0.87 [facility] Comment on above: Performed By: #### Dayday Santos, SHANEKAB, CHM7, MGO #### [facility] (DEFAULT) [address] [place] [address] Monocytes/100 WBC (Bld) 7.0 % Normal [facility] Comment on above: Performed By: #### Dayday Santos, IPB, CHM7, MGO #### [facility] (DEFAULT) [address] [place] [address] 48744 Nucleated RBC 0.0 /100 WBC Normal <=0.2 [facility] Comment on above: Performed By: #### Dayday Santos, IPB, CHM7, MGO #### [facility] (DEFAULT) [address] [place] [address] 14267 Platelet mean volume (Bld) [Entitic vol] 9.5 fL Normal 8.5-12.2 [facility] Comment on above: Performed By: #### Dayday Santos, IPB, CHM7, MGO #### [facility] (DEFAULT) [address] [place] [address]291 Platelets (Bld) [#/Vol] 355 10*3/uL Normal 150-393 [facility] Comment on above: Performed By: #### Dayday Santos, IPB, CHM7, MGO #### [facility] (DEFAULT) [address] [place] [address] 44815 RBC (Bld) [#/Vol] 4.67 10*6/uL Normal 3.91-5.04 [facility] Comment on above: Performed By: #### Dayday Santos, IPB, CHM7, MGO #### [facility] (DEFAULT) [address] [place] [address]010 RBC Distribution 13.2 % Normal 10.8-14.9 [facility] Comment on above: Performed By: #### Dayday Santos, IPB, CHM7, MGO #### [facility] (DEFAULT) [address] [place] [address] 55615 Segs + Bands Auto 58.9 % Normal [facility] Comment on above: Performed By: #### C A, IPB, CHM7, MGO #### [facility] (DEFAULT) [address] [place] [address] 55952 Segs + Bands,Absolute Auto 4.22 K/uL Normal 1.64-7.28 [facility] Comment on above: Performed By: #### C Danielle, IPB, CHM7, MGO #### [facility] (DEFAULT) [address] [place] [address] 17571 WBC (Bld) [#/Vol] 7.16 10*3/uL Normal 3.99-11.19 [facility] Comment on above: Performed By: #### C RODRIGO Santos, CHM7, MGO #### [facility] (DEFAULT) [address] [place] [address]25 CHROMOGRANIN Aon 10-07-2022 Chromogranin A <20 Normal <93 [facility] Comment on above: Result Comment: ADDITIONAL INFORMATION This test was developed and its performance characteristics determined by [facility] in a manner consistent with CLIA [...] a homogeneous time-resolved immunofluorescent assay manufactured by [employer] and performed on the [employer] Krypt[employer] Compact Plus. Values obtained with different assay methods or kits may be different and cannot be used interchangeably. Test results cannot be interpreted as absolute evidence for the presence or absence of malignant disease. Test Performed by: [facility] [address] [facility], [place] [address] Belt Maker: Ed Russo M.D. Ph.D.; CLIA# [id number] Performed By: #### Y CHGRA #### [facility] (DEFAULT) [address] [address] COMPREHENSIVE METABOLIC PANE Shamir 10-07-2022 Albumin [Mass/Vol] 4.7 g/dL Normal 3.5-5.0 [facility] Comment on above: Performed By: #### Y CHGRA #### [facility] (DEFAULT) [address] [address] ALP [Catalytic activity/Vol] 53 U/L Normal 32-126 [facility] Comment on above: Performed By: #### Y CHGRA #### [facility] (DEFAULT) [address] [address] ALT [Catalytic activity/Vol] 25 U/L Normal 9-48 [facility] Comment on above: Performed By: #### Y CHGRA #### [facility] (DEFAULT) [address] [address] Anion gap [Moles/Vol] 12 mmol/L Normal 7-17 [facility] Comment on above: Performed By: #### Y CHGRA #### [facility] (DEFAULT) [address] [address] AST [Catalytic activity/Vol] 16 U/L Normal 10-39 [facility] Comment on above: Performed By: #### Y CHGRA #### [facility] (DEFAULT) [address] [address] Bilirubin [Mass/Vol] 0.4 mg/dL Normal <1.5 [facility] Comment on above: Performed By: #### Y CHGRA #### [facility] (DEFAULT) [address] [address] Calcium [Mass/Vol] 9.5 mg/dL Normal 8.6-10.5 [facility] Comment on above: Performed By: #### Y CHGRA #### [facility] (DEFAULT) [address] [place] [address] Chloride [Moles/Vol] 101 mmol/L Normal 98-108 [facility] Comment on above: Performed By: #### Y CHGRA #### [facility] (DEFAULT) [address] [place] [address] CO2 [Moles/Vol] 28 mmol/L Normal 21-31 [facility] Comment on above: Performed By: #### Y CHGRA #### [facility] (DEFAULT) [address] [place] [address] Creatinine [Mass/Vol] 0.66 mg/dL Normal 0.50-1.20 [facility] Comment on above: Performed By: #### Y CHGRA #### [facility] (DEFAULT) [address] [place] [address] eGFR, CKD-EPI, Female > Normal >=60 [facility] Comment on above: Result Comment: Repo rted eGFR is based on the CKD-EPI 2020 equation using creatinine, age, and sex. Performed By: #### Y CHGRA #### [facility] (DEFAULT) [address] [place] [address] Glucose [Mass/Vol] 103 mg/dL High 70-99 [facility] Comment on above: Performed By: #### Y CHGRA #### [facility] (DEFAULT) [address] [place] [address] Osmolality [Osmolality] 286 mosm/kg Normal 278-305 [facility] Comment on above: Performed By: #### Y CHGRA #### [facility] (DEFAULT) [address] [place] [address] Potassium [Moles/Vol] 4.0 mmol/L Normal 3.5-5.0 [facility] Comment on above: Performed By: #### Y CHGRA #### [facility] (DEFAULT) [address] [place] [address] Protein [Mass/Vol] 7.6 g/dL Normal 6.4-8.3 [facility] Comment on above: Performed By: #### Y CHGRA #### [facility] (DEFAULT) [address] [place] [address] Sodium [Moles/Vol] 137 mmol/L Normal 135-145 [facility] Comment on above: Performed By: #### Y CHGRA #### [facility] (DEFAULT) [address] [place] [address] Urea nitrogen [Mass/Vol] 9 mg/dL Normal 7-25 [facility] Comment on above: Performed By: #### Y CHGRA #### [facility] (DEFAULT) [address] [place] [address] Urea nitrogen/Creatinine [Mass ratio] 14 mg/mg Normal [facility] Comment on above: Performed By: #### Y CHGRA #### [facility] (DEFAULT) [address] [place] [address] HIGH SENSITIVITY TROPONIN I - SINGLE ORDERon 10-07-2022 Interpretation and review of laboratory results Normal [facility] Troponin I.cardiac High sensitivity method [Mass/Vol] ng/L NINF - 34 ng/L [facility] hs-Troponin I <3 Normal <34 [facility] Comment on above: Order Comment: Acute Coronary Syndrome (ACS): Initial Evaluation and Management:[email or web address] [email or web address]#[email or web address] Performed By: #### C A, IPB, CHM7, MGO #### [facility] (DEFAULT) [address] [place] [address] LACTATE DEHYDROGENASEon 09-17 LD Total 114 U/L Normal 100-190 [facility] Comment on above: Performed By: #### Y CHGRA #### [facility] (DEFAULT) [address] [place] [address] MONOon 10-02-2022 Monocytes (Bld) [#/Vol] Negative Normal NEGATIVE [facility] Comment on above: Performed By: #### L IVER, LDH, BMP #### [facility] [address] [place] [address] Dr. Esthela Stevens CBC AUTO DIFFon 09-30-2022 BASO # 0.1 103/ul Normal 0.0-0.1 [facility] Comment on above: Performed By: #### L IVER, LDH, BMP #### [facility] [address] [place] [address] Dr. Esthela Stevens Basophils/100 WBC (Bld) 0.8 % Normal 0.2-2.0 [facility] Comment on above: Performed By: #### L IVER, LDH, BMP #### [facility] [address] [place] [address] Dr. Esthela Stevens EO # 0.1 103/ul Normal 0.0-0.7 [facility] Comment on above: Performed By: #### L IVER, LDH, BMP #### [facility] [address] [place] [address] Dr. Esthela Stevens Eosinophils/100 WBC (Bld) 1.7 % Normal 0.9-7.0 [facility] Comment on above: Performed By: #### L IVER, LDH, BMP #### [facility] [address] [place] [address] Dr. Esthela Stevens Erythrocyte distribution width (RBC) [Ratio] 13.1 % Normal 11.0-15.0 [facility] Comment on above: Performed By: #### L IVER, LDH, BMP #### [facility] [address] [place] [address] Dr. Esthela Stevens Hematocrit (Bld) [Volume fraction] 38.4 % Normal 36.0-48.0 [facility] Comment on above: Performed By: #### L IVER, LDH, BMP #### [facility] [address] [place] [address] Dr. Esthela Stevens Hemoglobin (Bld) [Mass/Vol] 12.4 g/dL Normal 12.0-16.0 [facility] Comment on above: Performed By: #### L IVER, LDH, BMP #### [facility] [address] [place] [address] Dr. Esthela Stevens IG # 0.02 10e3/ul Normal 0.00-0.03 [facility] Comment on above: Performed By: #### L IVER, LDH, BMP #### [facility] [address] [place] [address] Dr. Esthela Stevens IG % 0.3 % Normal 0.0-0.5 [facility] Comment on above: Performed By: #### L IVER, LDH, BMP #### [facility] [address] [place] [address] Dr. Esthela Stevens LYMPH # 2.2 103/ul Normal 1.2-3.8 [facility] Comment on above: Performed By: #### L IVER, LDH, BMP #### [facility] [address] [place] [address] Dr. Esthela Stevens Lymphocytes/100 WBC (Bld) 32.8 % Normal 20.5-60.0 [facility] Comment on above: Performed By: #### L IVER, LDH, BMP #### [facility] [address] [place] [address] Dr. Esthela Stevens MANUAL DIFF REQ NO Normal [facility] Comment on above: Performed By: #### L IVER, LDH, BMP #### [facility] [address] [place] [address] Dr. Esthela Stevens MCH (RBC) [Entitic mass] 27.1 pg Normal 26.7-34.0 [facility] Comment on above: Performed By: #### L IVER, LDH, BMP #### [facility] [address] [place] [address] Dr. Esthela Stevens MCHC (RBC) [Mass/Vol] 32.3 g/dL Normal 29.9-35.2 [facility] Comment on above: Performed By: #### L IVER, LDH, BMP #### [facility] [address] [place] [address] Dr. Esthela Stevens MCV (RBC) [Entitic vol] 83.8 fL Normal 81.0-99.0 [facility] Comment on above: Performed By: #### L IVER, LDH, BMP #### [facility] [address] [place] [address] Dr. Esthela Stevens MONO # 0.5 103/ul Normal 0.3-0.8 [facility] Comment on above: Performed By: #### L IVER, LDH, BMP #### [facility] [address] [place] [address] Dr. Esthela Stevens Monocytes/100 WBC (Bld) 8.0 % Normal 1.7-12.0 [facility] Comment on above: Performed By: #### L IVER, LDH, BMP #### [facility] [address] [place] [address] Dr. Esthela Stevens NEUT # 3.7 103/ul Normal 1.4-6.5 [facility] Comment on above: Performed By: #### L IVER, LDH, BMP #### [facility] [address] [place] [address] Dr. Esthela Stevens Neutrophils/100 WBC (Bld) 56.4 % Normal 43.0-75.0 [facility] Comment on above: Performed By: #### L IVER, LDH, BMP #### [facility] [address] [place] [address] Dr. Esthela Stevens Platelet mean volume (Bld) [Entitic vol] 9.3 fL Critically low 9.5-13.5 [facility] Comment on above: Performed By: #### L IVER, LDH, BMP #### [facility] [address] [place] [address] Dr. Esthela Stevens PLT 334 103/ul Normal 150-450 [facility] Comment on above: Performed By: #### L IVER, LDH, BMP #### [facility] [address] [address] [address] Esthela Stevens RBC 4.58 106/ul Normal 4.20-5.40 [facility] Comment on above: Performed By: #### L IVER, LDH, BMP #### [facility] [address] [place] [address] Dr. Esthela Stevens WBC 6.6 103/ul Normal 4.0-11.0 [facility] Comment on above: Performed By: #### L IVER, LDH, BMP #### [facility] [address] [place] [address] Dr. Esthela Stevens LDHon 09-30-2022 LDH 122 U/L Normal 81-234 [facility] Comment on above: Performed By: #### L IVER, LDH, BMP #### [facility] [address] [place] [address] Dr. Esthela Stevens LIVER PROFILEon 09-30-2022 Albumin [Mass/Vol] 4.1 g/dL Normal 3.4-5.0 [facility] Comment on above: Performed By: #### L IVER, LDH, BMP #### [facility] [address] [place] [address] Dr. Esthela Stevens Albumin/Globulin [Mass ratio] 1.2 {ratio} Normal [facility] Comment on above: Performed By: #### L IVER, LDH, BMP #### [facility] [address] [place] [address] Dr. Esthela Stevens ALP [Catalytic activity/Vol] 75 U/L Normal 46-116 [facility] Comment on above: Performed By: #### L IVER, LDH, BMP #### [facility] [address] [place] [address] Dr. Esthela Stevens ALT [Catalytic activity/Vol] 41 U/L Normal 14-59 [facility] Comment on above: Performed By: #### L IVER, LDH, BMP #### [facility] [address] [place] [address] Dr. Esthela Stevens AST [Catalytic activity/Vol] 30 U/L Normal 15-37 [facility] Comment on above: Performed By: #### L IVER, LDH, BMP #### [facility] [address] [place] [address] Dr. Esthela Stevens BILI, CONJUGATED 0.1 mg/dL Normal 0.0-0.2 [facility] Comment on above: Performed By: #### L IVER, LDH, BMP #### [facility] [address] [place] [address] Dr. Esthela Stevens Bilirubin [Mass/Vol] 0.5 mg/dL Normal 0.2-1.0 [facility] Comment on above: Performed By: #### L IVER, LDH, BMP #### [facility] [address] [place] [address] Dr. Esthela Stevens Globulin (S) [Mass/Vol] 3.3 g/dL Normal [facility] Comment on above: Performed By: #### L IVER, LDH, BMP #### [facility] [address] [place] [address] Dr. Esthela Stevens Protein [Mass/Vol] 7.4 g/dL Normal 6.4-8.[address] [facility] Comment on above: Performed By: #### L IVER, LDH, BMP #### [facility] [address] [place] [address] Dr. Esthela Stevens PROF CHEM 8 (BAS METB)on Anion gap [Moles/Vol] 9.2 mmol/L Normal [facility] Comment on above: Performed By: #### L IVER, LDH, BMP #### [facility] [address] [place] [address] Dr. Esthela Stevens Calcium [Mass/Vol] 9.0 mg/dL Normal 8.5-10.[address] [facility] Comment on above: Performed By: #### L IVER, LDH, BMP #### [facility] [address] [place] [address] Dr. Esthela Stevens Chloride [Moles/Vol] 102 mmol/L Normal 98-107 [facility] Comment on above: Performed By: #### L IVER, LDH, BMP #### [facility] [address] [address] [address] Esthela Stevens CO2 [Moles/Vol] 27.8 mmol/L Normal 21.0-32.0 [facility] Comment on above: Performed By: #### L IVER, LDH, BMP #### [facility] [address] [address] [address] Esthela Stevens Creatinine [Mass/Vol] 0.63 mg/dL Normal 0.55-1.02 [facility] Comment on above: Performed By: #### L IVER, LDH, BMP #### [facility] [address] [address] [address] Esthela Stevens EGFR-AF TURKMEN >60 Normal >=60 [facility] Comment on above: Performed By: #### L IVER, LDH, BMP #### [facility] [address] [address] [address] Esthela Stevens EGFR-NON AF TURKMEN >60 Normal >=60 [facility] Comment on above: Performed By: #### L IVER, LDH, BMP #### [facility] [address] [address] [address] Esthela Stevens Glucose [Mass/Vol] 106 mg/dL Normal 74-106 [facility] Comment on above: Performed By: #### L IVER, LDH, BMP #### [facility] [address] [address] [address] Esthela Stevens Potassium [Moles/Vol] 4.0 mmol/L Normal 3.5-5.1 [facility] Comment on above: Performed By: #### L IVER, LDH, BMP #### [facility] [address] [address] [address] Esthela Stevens Sodium [Moles/Vol] 135 mmol/L Critically low 136-145 [facility] Comment on above: Performed By: #### L IVER, LDH, BMP #### [facility] [address] [address] [address] Esthela Stevens Urea nitrogen [Mass/Vol] 9.0 mg/dL Normal 7.0-18.0 [facility] Comment on above: Performed By: #### L IVER, LDH, BMP #### [facility] [address] [place], [place] [address] Dr. Esthela Stevens Urea nitrogen/Creatinine [Mass ratio] 14.3 mg/mg Normal [facility] Comment on above: Performed By: #### L IVER, LDH, BMP #### [facility] [address] [place], [place] [address] Dr. Esthela Stevens MG MAMM DIAGNOSTIC 3D EFREN CA Don 09-23-2022 MG MAMM DIAGNOSTIC 3D EFREN CAD Patient: ZAINAB SWIFT Exam Date: 09/23/2022 : 1995 Gender:F Ordering : [facility] Admission #: [id number] Family : Order #: [id number] CLICK HERE TO VIEW EXAM RADIOLOGY REPORT [...] cervical cancer at age 42. LOCATION: [facility] BREAST COMPOSITION: Extremely dense, which lowers [...] M.D. on 09/23/2022 at 11:31 Normal [facility] US BREAST EFREN LIMITEDon 03-0 US BREAST EFREN LIMITED Patient: ZAINAB SWIFT Exam Date: 09/23/2022 : 1995 Gender:F Ordering : [facility] Admission #: [id number] Family : Order #: [id number] CLICK HERE TO VIEW EXAM RADIOLOGY REPORT [...] cervical cancer at age 42. LOCATION: [facility] BREAST COMPOSITION: Extremely dense, which lowers [...] M.D. on 09/23/2022 at 11:31 Normal [facility] Covid-19 PCR (CVDTBH)on 08-20 SARS-CoV-2 (COVID-19) RNA JORGE LUIS+probe Ql (Unsp spec) Not detected Normal NOT DETECTED [facility] Comment on above: Result Comment: When [...] for this test is supported by the Barrel Tester of Health and Human Service's declaration that [...] used). Performed By: #### P REG #### [facility] [address] [place] [address] Dr. Esthela Stevens INFLUENZA A AND B [facility] [place] 09-15 [facility] SEE BELOW Normal [facility] Comment on above: Result Comment: Nega tive for Flu A protein angiten. Infection due to Flu A cannot be ruled out. Flu A angiten in the sample may be below the detection limit of the test. Performed By: #### L IVER, LDH, BMP #### [facility] [address] [place] [address] Dr. Esthela Stevens [facility] Normal [facility] Comment on above: Result Comment: Nega tive for Flu B protein antigen. Infection due to Flu B cannot be ruled out. Flu B antigen in the sample may be below the detection limit of the test. Performed By: #### L IVER, LDH, BMP #### [facility] [address] [place] [address] Dr. Esthela Stevens INFLUENZA A AG Negative Normal NEGATIVE SEE COMMENT [facility] Comment on above: Performed By: #### L IVER, LDH, BMP #### [facility] [address] [place] [address] Dr. Esthela Stevens INFLUENZA B AG Negative Normal NEGATIVE SEE COMMENT [facility] Comment on above: Performed By: #### L IVER, LDH, BMP #### [facility] [address] [address] [address] Esthela Stevens HUNTER by IFAon 09-04-2022 Antinuclear Antibodies, IFA Positive Abnormal [facility] Comment on above: Result Comment: Nega tive <1:80 Borderline 1:80 Positive >1:80 Performed By: #### P REG #### [facility] [address] [address] [address] Esthela Stevens Centriole Pattern Normal [facility] Comment on above: Performed By: #### P REG #### [facility] [address] [address] [address] Esthela Stevens Centromere Pattern Normal [facility] Comment on above: Performed By: #### P REG #### [facility] [address] [address] [address] Esthela Stevens Homogeneous Pattern 1:160 Critically high [facility] Comment on above: Result Comment: ICAP nomenclature: AC-1 Performed By: #### P REG #### [facility] [address] [address] [address] Esthela Stevens Midbody Pattern Normal [facility] Comment on above: Performed By: #### P REG #### [facility] [address] [address] [address] Esthela Stevens Note: Comment Normal [facility] Comment on above: Result Comment: For [...] titers Nucleosomes, Histones Drug-induced SLE Speckled Sm, PROFESSIONAL WREST[employer], SCL-70, SLE,MCTD,PSS (diffuse form), SS-A/SS-B Sjogrens Nucleolar SCL-70, PM-1/SCL High titers Scleroderma, PM/DM Centromere Centromere PSS (limited form) w/Crest syndrome variable Nuclear Dot [id number] Primary Biliary Cirrhosis Nuclear GP210, Primary Biliary Cirrhosis Membrane italia A,B,C Performed By: #### P REG #### [facility] [address] [place] [address] Dr. Esthela Stevens Nuclear Dot Pattern Normal [facility] Comment on above: Performed By: #### P REG #### [facility] [address] [address] [address] Esthela Stevens Nuclear Membrane Pattern Normal [facility] Comment on above: Performed By: #### P REG #### [facility] [address] [address] [address] Esthela Stevens Nucleolar Pattern Normal [facility] Comment on above: Performed By: #### P REG #### [facility] [address] [address] [address] Esthela Stevens PCNA Pattern Normal [facility] Comment on above: Performed By: #### P REG #### [facility] [address] [address] [address] Esthela Stevens Speckled Pattern Normal [facility] Comment on above: Performed By: #### P REG #### [facility] [address] [place] [address] Dr. Esthela Stevens Spindle Apparatus Pattern Normal [facility] Comment on above: Performed By: #### P REG #### [facility] [address] [place] [address] Dr. Esthela Stevens ANTISTREPTOLYSIN O AB (ASO)o n 09-01-2022 Antistreptolysin O Ab 58.8 IU/mL Normal 0.0-200.0 [facility] Comment on above: Performed By: #### L IVER, LDH, BMP #### [facility] [address] [place] [address] Dr. Esthela Stevens INSULINon 09-01-2022 Insulin 12.2 uIU/mL Normal 2.6-24.9 [facility] Comment on above: Performed By: #### I NSULIN #### [facility] [address] [place] [address] Dr. Esthela Stevens RHEUMATOID FACTORon 09-01-19 RA Latex Turbid. <10.0 Normal <14.0 [facility] Comment on above: Performed By: #### L IVER, LDH, BMP #### [facility] [address] [place] [address] Dr. Esthela Stevens CBC AUTO DIFFon 08-31-2022 BASO # 0.0 103/ul Normal 0.0-0.1 [facility] Comment on above: Performed By: #### P REG #### [facility] [address] [place] [address] Dr. Esthela Stevens Basophils/100 WBC (Bld) 0.6 % Normal 0.2-2.0 [facility] Comment on above: Performed By: #### P REG #### [facility] [address] [place] [address] Dr. Esthela Stevens EO # 0.1 103/ul Normal 0.0-0.7 [facility] Comment on above: Performed By: #### P REG #### [facility] [address] [place] [address] Dr. Esthela Stevens Eosinophils/100 WBC (Bld) 1.5 % Normal 0.9-7.0 [facility] Comment on above: Performed By: #### P REG #### [facility] [address] [place] [address] Dr. Esthela Stevens Erythrocyte distribution width (RBC) [Ratio] 12.7 % Normal 11.0-15.0 [facility] Comment on above: Performed By: #### P REG #### [facility] [address] [place] [address] Dr. Esthela Stevens Hematocrit (Bld) [Volume fraction] 38.4 % Normal 36.0-48.0 [facility] Comment on above: Performed By: #### P REG #### [facility] [address] [place] [address] Dr. Esthela Stevens Hemoglobin (Bld) [Mass/Vol] 12.7 g/dL Normal 12.0-16.0 [facility] Comment on above: Performed By: #### P REG #### [facility] [address] [place] [address] Dr. Esthela Stevens IG # 0.02 10e3/ul Normal 0.00-0.03 [facility] Comment on above: Performed By: #### P REG #### [facility] [address] [place] [address] Dr. Esthela Stevens IG % 0.3 % Normal 0.0-0.5 [facility] [facility] Comment on above: Performed By: #### P REG #### [facility] [address] [place] [address] Dr. Esthela Stevens LYMPH # 2.0 103/ul Normal 1.2-3.8 [facility] Comment on above: Performed By: #### P REG #### [facility] [address] [place] [address] Dr. Esthela Stevens Lymphocytes/100 WBC (Bld) 31.2 % Normal 20.5-60.0 [facility] Comment on above: Performed By: #### P REG #### [facility] [address] [place] [address] Dr. Esthela Stevens MANUAL DIFF REQ NO Normal [facility] Comment on above: Performed By: #### P REG #### [facility] [address] [place] [address] Dr. Esthela Stevens MCH (RBC) [Entitic mass] 27.1 pg Normal 26.7-34.0 [facility] Comment on above: Performed By: #### P REG #### [facility] [address] [place] [address] Dr. Esthela Stevens MCHC (RBC) [Mass/Vol] 33.1 g/dL Normal 29.9-35.2 [facility] Comment on above: Performed By: #### P REG #### [facility] [address] [place] [address] Dr. Esthela Stevens MCV (RBC) [Entitic vol] 82.1 fL Normal 81.0-99.0 [facility] Comment on above: Performed By: #### P REG #### [facility] [address] [place] [address] Dr. Esthela Stevens MONO # 0.4 103/ul Normal 0.3-0.8 [facility] Comment on above: Performed By: #### P REG #### [facility] [address] [place] [address] Dr. Esthela Stevens Monocytes/100 WBC (Bld) 6.4 % Normal 1.7-12.0 [facility] Comment on above: Performed By: #### P REG #### [facility] [address] [address] [address] Esthela Stevens NEUT # 3.9 103/ul Normal 1.4-6.5 [facility] Comment on above: Performed By: #### P REG #### [facility] [address] [address] [address] Esthela Stevens Neutrophils/100 WBC (Bld) 60.0 % Normal 43.0-75.0 [facility] Comment on above: Performed By: #### P REG #### [facility] [address] [address] [address] Esthela Stevens Platelet mean volume (Bld) [Entitic vol] 9.2 fL Critically low 9.5-13.5 [facility] Comment on above: Performed By: #### P REG #### [facility] [address] [place] [address] Dr. Esthela Stevens PLT 390 103/ul Normal 150-450 [facility] Comment on above: Performed By: #### P REG #### [facility] [address] [address] [address] Esthela Stevens RBC 4.68 106/ul Normal 4.20-5.40 [facility] Comment on above: Performed By: #### P REG #### [facility] [address] [place] [address] Dr. Esthela Stevens WBC 6.5 103/ul Normal 4.0-11.0 [facility] Comment on above: Performed By: #### P REG #### [facility] [address] [place] [address] Dr. Esthela Stevens CRPon 08-31-2022 CRP [Mass/Vol] mg/L Normal <=1.0 [facility] Comment on above: Performed By: #### L IVER, LDH, BMP #### [facility] [address] [place] [address] Dr. Esthela Stevens FREE THYROXINE INDEX T7on FTI 2.94 Normal 1.30-4.50 [facility] Comment on above: Performed By: #### L IVER, LDH, BMP #### [facility] [address] [address] [address] Esthela Stevens T3U 33.0 % Normal 30.0-39.0 [facility] Comment on above: Performed By: #### L IVER, LDH, BMP #### [facility] [address] [address] [address] Esthela Stevens T4 [Mass/Vol] 8.90 ug/dL Normal 4.80-13.90 [facility] Comment on above: Performed By: #### L IVER, LDH, BMP #### [facility] [address] [place] [address] Dr. Esthela Stevens GLYCOHEMOGLOBIN A1Con 2022 ADA RECOMMENDATION SEE BELOW Normal [facility] Comment on above: Result Comment: ADA RECOMMENDED LIMIT 4.0 - 6.0 ADA THERAPEUTIC TARGET < 7.0 ACTION SUGGESTED > 7.0 Performed By: #### L IVER, LDH, BMP #### [facility] [address] [address] [address] Esthela Stevens Glucose [Mass/Vol] 111 mg/dL Normal [facility] Comment on above: Performed By: #### L IVER, LDH, BMP #### [facility] [address] [address] [address] Esthela Stevens HbA1c (Bld) [Mass fraction] 5.5 % Normal 4.5-6.2 [facility] Comment on above: Performed By: #### L IVER, LDH, BMP #### [facility] [address] [address] [address] Esthela Stevens IRONon 08-31-2022 Iron [Mass/Vol] 34.0 ug/dL Critically low 50.0-170.0 [facility] Comment on above: Performed By: #### L IVER, LDH, BMP #### [facility] [address] [place] [address] Dr. Esthela Stevens LIPID PROFILEon 08-31-2022 CHOL-HDL RATIO NORM SEE BELOW Normal [facility] Comment on above: Result Comment: 3.3 - 4.4 LOW RISK 4.4 - 7.1 AVERAGE RISK 7.1 - 11.0 MODERATE RISK >11.0 HIGH RISK Performed By: #### L IVER, LDH, BMP #### [facility] [address] [address] [address] Esthela Stevens Cholesterol [Mass/Vol] 168 mg/dL Normal <=200 [facility] Comment on above: Performed By: #### L IVER, LDH, BMP #### [facility] [address] [address] [address] Esthela Stevens Cholesterol in HDL [Mass/Vol] 51 mg/dL Normal 40-60 [facility] Comment on above: Performed By: #### L IVER, LDH, BMP #### [facility] [address] [address] [address] Esthela Stevens Cholesterol in LDL [Mass/Vol] 91.8 mg/dL Normal [facility] Comment on above: Performed By: #### L IVER, LDH, BMP #### [facility] [address] [address] [address] Esthela Stevesn Cholesterol.total/Ch olesterol in HDL [Mass ratio] 3.3 {ratio} Normal [facility] Comment on above: Performed By: #### L IVER, LDH, BMP #### [facility] [address] [address] [address] Esthela Stevens HDL NORMAL > or = 60 mg/dl - LOW CARDIOVASCULAR RISK <40 mg/dl - HIGH CARDIOVASCULAR RISK Normal [facility] Comment on above: Performed By: #### L IVER, LDH, BMP #### [facility] [address] [address] [address] Esthela Stevens LDL CALC NORMAL SEE BELOW Normal [facility] Comment on above: Result Comment: <100 mg/dl OPTIMAL 100 - 129 mg/dl NEAR OR ABOVE OPTIMAL 130 - 159 mg/dl BORDERLINE HIGH 160 - 189 mg/dl HIGH >190 mg/dl VERY HIGH Performed By: #### L IVER, LDH, BMP #### [facility] [address] [address] [address] Esthela Stevens Triglyceride [Mass/Vol] 126 mg/dL Normal <=150 [facility] Comment on above: Performed By: #### L IVER, LDH, BMP #### [facility] [address] [address] [address] Esthela Stevens VLDL CALC 25.2 mg/dL Normal [facility] Comment on above: Performed By: #### L IVER, LDH, BMP #### [facility] [address] [address] [address] Esthela Stevens PROF 14(COMP METB)on 023 Albumin [Mass/Vol] 4.2 g/dL Normal 3.4-5.0 [facility] Comment on above: Performed By: #### L IVER, LDH, BMP #### [facility] [address] [place] [address] Dr. Esthela Stevens Albumin/Globulin [Mass ratio] 1.1 {ratio} Normal [facility] Comment on above: Performed By: #### L IVER, LDH, BMP #### [facility] [address] [place] [address] Dr. Esthela Stevesn ALP [Catalytic activity/Vol] 74 U/L Normal 46-116 [facility] Comment on above: Performed By: #### L IVER, LDH, BMP #### [facility] [address] [place] [address] Dr. Esthela Stevens ALT [Catalytic activity/Vol] 57 U/L Normal 14-59 [facility] Comment on above: Performed By: #### L IVER, LDH, BMP #### [facility] [address] [place] [address] Dr. Esthela Stevens Anion gap [Moles/Vol] 15.0 mmol/L Normal [facility] Comment on above: Performed By: #### L IVER, LDH, BMP #### [facility] [address] [place] [address] Dr. Esthela Stevens AST [Catalytic activity/Vol] 25 U/L Normal 15-37 [facility] Comment on above: Performed By: #### L IVER, LDH, BMP #### [facility] [address] [address] [address] Esthela Stevens Bilirubin [Mass/Vol] 0.4 mg/dL Normal 0.2-1.0 [facility] Comment on above: Performed By: #### L IVER, LDH, BMP #### [facility] [address] [address] [address] Esthela Stevens Calcium [Mass/Vol] 9.4 mg/dL Normal 8.5-10.1 [facility] Comment on above: Performed By: #### L IVER, LDH, BMP #### [facility] [address] [place] [address] Dr. Esthela Stevens Chloride [Moles/Vol] 102 mmol/L Normal 98-107 [facility] Comment on above: Performed By: #### L IVER, LDH, BMP #### [facility] [address] [place] [address] Dr. Esthela Stevens CO2 [Moles/Vol] 27.0 mmol/L Normal 21.0-32.0 [facility] Comment on above: Performed By: #### L IVER, LDH, BMP #### [facility] [address] [place] [address] Dr. Esthela Stevens Creatinine [Mass/Vol] 0.61 mg/dL Normal 0.55-1.02 [facility] Comment on above: Performed By: #### L IVER, LDH, BMP #### [facility] [address] [place] [address] Dr. Esthela Stevens EGFR-AF TURKMEN >60 Normal >=60 [facility] Comment on above: Performed By: #### L IVER, LDH, BMP #### [facility] [address] [place] [address] Dr. Esthela Stevens EGFR-NON AF TURKMEN >60 Normal >=60 [facility] Comment on above: Performed By: #### L IVER, LDH, BMP #### [facility] [address] [place] [address] Dr. Esthela Stevens Globulin (S) [Mass/Vol] 3.7 g/dL Normal [facility] Comment on above: Performed By: #### L IVER, LDH, BMP #### [facility] [address] [address] [address] Esthela Stevens Glucose [Mass/Vol] 88 mg/dL Normal 74-106 [facility] Comment on above: Performed By: #### L IVER, LDH, BMP #### [facility] [address] [place] [address] Dr. Esthela Stevens Potassium [Moles/Vol] 4.0 mmol/L Normal 3.5-5.1 [facility] Comment on above: Performed By: #### L IVER, LDH, BMP #### [facility] [address] [place] [address] Dr. Esthela Stevens Protein [Mass/Vol] 7.9 g/dL Normal 6.4-8.2 [facility] Comment on above: Performed By: #### L IVER, LDH, BMP #### [facility] [address] [place] [address] Dr. Esthela Stevens Sodium [Moles/Vol] 140 mmol/L Normal 136-145 [facility] Comment on above: Performed By: #### L IVER, LDH, BMP #### [facility] [address] [place] [address] Dr. Esthela Stevens Urea nitrogen [Mass/Vol] 4.0 mg/dL Critically low 7.0-18.0 [facility] Comment on above: Performed By: #### L IVER, LDH, BMP #### [facility] [address] [place] [address] Dr. Esthela Stevens Urea nitrogen/Creatinine [Mass ratio] 6.6 mg/mg Normal [facility] Comment on above: Performed By: #### L IVER, LDH, BMP #### [facility] [address] [place] [address] Dr. Esthela Stevens TSHon 08-31-2022 TSH 1.348 uIU/mL Normal 0.358-3.740 [facility] Comment on above: Performed By: #### L IVER, LDH, BMP #### [facility] [address] [place] [address] Dr. Esthela Stevens URIC ACID SERUMon 08-31-2022 Urate [Mass/Vol] 4.4 mg/dL Normal 2.6-6.0 [facility] Comment on above: Performed By: #### L IVER, LDH, BMP #### [facility] [address] [place] [address] Dr. Esthela Stevens VITAMIN D 25 OHon 08-31-2022 VIT D 25-OH 18.0 ng/mL Normal [facility] Comment on above: Performed By: #### L IVER, LDH, BMP #### [facility] [address] [place] [address] Dr. Esthela Stevens VIT D RANGES SEE BELOW Normal [facility] Comment on above: Result Comment: <20 ng/mL Vit D deficient 20 - <30 ng/mL Vit D insufficient 30 - 100 ng/mL Vit D sufficient >100 ng/mL Potential Toxicity Performed By: #### L IVER, LDH, BMP #### [facility] [address] [place] [address] Dr. Esthela Stevens LIVER PROFILEon 08-24-2022 Albumin [Mass/Vol] 3.9 g/dL Normal 3.4-5.0 [facility] Comment on above: Performed By: #### L IVER, LDH, BMP #### [facility] [address] [place] [address] Dr. Esthela Stevens Albumin/Globulin [Mass ratio] 1.0 {ratio} Normal [facility] Comment on above: Performed By: #### L IVER, LDH, BMP #### [facility] [address] [place] [address] Dr. Esthela Stevens ALP [Catalytic activity/Vol] 70 U/L Normal 46-116 [facility] Comment on above: Performed By: #### L IVER, LDH, BMP #### [facility] [address] [place] [address] Dr. Esthela Stevens ALT [Catalytic activity/Vol] 44 U/L Normal 14-59 [facility] Comment on above: Performed By: #### L IVER, LDH, BMP #### [facility] [address] [place] [address] Dr. Esthela Stevens AST [Catalytic activity/Vol] 22 U/L Normal 15-37 [facility] Comment on above: Performed By: #### L IVER, LDH, BMP #### [facility] [address] [place] [address] Dr. Esthela Stevens BILI, CONJUGATED 0.1 mg/dL Normal 0.0-0.2 [facility] Comment on above: Performed By: #### L IVER, LDH, BMP #### [facility] [address] [place] [address] Dr. Esthela Stevens Bilirubin [Mass/Vol] 0.3 mg/dL Normal 0.2-1.0 [facility] Comment on above: Performed By: #### L IVER, LDH, BMP #### [facility] [address] [place] [address] Dr. Esthela Stevens Globulin (S) [Mass/Vol] 3.9 g/dL Normal [facility] Comment on above: Performed By: #### L IVER, LDH, BMP #### [facility] [address] [place] [address] Dr. Esthela Stevens Protein [Mass/Vol] 7.8 g/dL Normal 6.4-8.2 [facility] Comment on above: Performed By: #### L IVER, LDH, BMP #### [facility] [address] [place] [address] ABDOMEN/PELVIS WITH AND [facility] CONTRASTon 08-20-2022 CT ABDOMEN/PELVIS WITH AND WITHOUT [...] or increased in size compared to prior. It Admin 0.8 cm x 0.5 cm soft tissue [...] error, please notify the sender immediately at [phone] and permanently delete the original report and destroy any copies or printouts. Normal [facility] CREAT/GFRon 08-19-2022 Creatinine [Mass/Vol] 0.85 mg/dL 0.50 - 1.20 mg/dL [facility] GFR/1.73 sq M.predicted CKD-EPI (S/P/Bld) [Vol rate/Area] - PINF [facility] Comment on above: Reported eGFR is bas ed on the CKD-EPI 2020 equation using creatinine, age, and sex. Interpretation and review of laboratory results Normal [facility] Test performed at address of the patient encounter. 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 CT DOSE: DLP: 554 mGy x cm kVp: 120 TECHNIQUE: Approximately 70 minutes following the injection of 4.1 mCi of Gallium-68 Dotatate, the patient was positioned on the Siemens Invocagraph mCT TOF< PET/CT-64, Tera imaging unit. A [...] evidence of somatostatin receptor avid malignancy. 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 [facility] Radiology Study observation (narrative) [facility] PT Skull base to mid-thighOr dered By: Hawa Pichardo on 08-19-2022 [facility] Work Phone: CBC AUTO DIFFon 08-12-2022 BASO # 0.1 103/ul Normal 0.0-0.1 [facility] Comment on above: Performed By: #### L IVER, LDH, BMP #### [facility] [address] [place] [address] Dr. Esthela Stevens Basophils/100 WBC (Bld) 1.0 % Normal 0.2-2.0 [facility] Comment on above: Performed By: #### L IVER, LDH, BMP #### [facility] [address] [place] [address] Dr. Esthela Stevens EO # 0.1 103/ul Normal 0.0-0.7 [facility] Comment on above: Performed By: #### L IVER, LDH, BMP #### [facility] [address] [place] [address] Dr. Esthela Stevens Eosinophils/100 WBC (Bld) 1.6 % Normal 0.9-7.0 [facility] Comment on above: Performed By: #### L IVER, LDH, BMP #### [facility] [address] [place] [address] Dr. Esthela Stevens Erythrocyte distribution width (RBC) [Ratio] 12.5 % Normal 11.0-15.0 [facility] Comment on above: Performed By: #### L IVER, LDH, BMP #### [facility] [address] [place] [address] Dr. Esthela Stevens Hematocrit (Bld) [Volume fraction] 40.1 % Normal 36.0-48.0 [facility] Comment on above: Performed By: #### L IVER, LDH, BMP #### [facility] [address] [address] [address] Esthela Stevens Hemoglobin (Bld) [Mass/Vol] 12.3 g/dL Normal 12.0-16.0 [facility] Comment on above: Performed By: #### L IVER, LDH, BMP #### [facility] [address] [place] [address] Dr. Esthela Stevens IG # 0.01 10e3/ul Normal 0.00-0.03 [facility] Comment on above: Performed By: #### L IVER, LDH, BMP #### [facility] [address] [place] [address] Dr. Esthela Stevens IG % 0.2 % Normal 0.0-0.5 [facility] Comment on above: Performed By: #### L IVER, LDH, BMP #### [facility] [address] [place] [address] Dr. Esthela Stevens LYMPH # 1.8 103/ul Normal 1.2-3.8 [facility] Comment on above: Performed By: #### L IVER, LDH, BMP #### [facility] [address] [place] [address] Dr. Esthela Stevens Lymphocytes/100 WBC (Bld) 28.0 % Normal 20.5-60.0 [facility] Comment on above: Performed By: #### L IVER, LDH, BMP #### [facility] [address] [place] [address] Dr. Esthela Stevens MANUAL DIFF REQ NO Normal [facility] Comment on above: Performed By: #### L IVER, LDH, BMP #### [facility] [address] [place] [address] Dr. Esthela Stevens MCH (RBC) [Entitic mass] 26.8 pg Normal 26.7-34.0 [facility] Comment on above: Performed By: #### L IVER, LDH, BMP #### [facility] [address] [place] [address] Dr. Esthela Stevens MCHC (RBC) [Mass/Vol] 30.7 g/dL Normal 29.9-35.2 [facility] Comment on above: Performed By: #### L IVER, LDH, BMP #### [facility] [address] [place] [address] Dr. Esthela Stevens MCV (RBC) [Entitic vol] 87.4 fL Normal 81.0-99.0 [facility] Comment on above: Performed By: #### L IVER, LDH, BMP #### [facility] [address] [place] [address] Dr. Esthela Stevens MONO # 0.6 103/ul Normal 0.3-0.8 [facility] Comment on above: Performed By: #### L IVER, LDH, BMP #### [facility] [address] [place] [address] Dr. Esthela Stevens Monocytes/100 WBC (Bld) 9.4 % Normal 1.7-12.0 [facility] Comment on above: Performed By: #### L IVER, LDH, BMP #### [facility] [address] [place] [address] Dr. Esthela Stevens NEUT # 3.8 103/ul Normal 1.4-6.5 [facility] Comment on above: Performed By: #### L IVER, LDH, BMP #### [facility] [address] [place] [address] Dr. Esthela Stevens Neutrophils/100 WBC (Bld) 59.8 % Normal 43.0-75.0 [facility] Comment on above: Performed By: #### L IVER, LDH, BMP #### [facility] [address] [place] [address] Dr. Esthela Stevens Platelet mean volume (Bld) [Entitic vol] 9.6 fL Normal 9.5-13.5 [facility] Comment on above: Performed By: #### L IVER, LDH, BMP #### [facility] [address] [place] [address] Dr. Esthela Stevens PLT 341 103/ul Normal 150-450 [facility] Comment on above: Performed By: #### L IVER, LDH, BMP #### [facility] [address] [place] [address] Dr. Esthela Stevens RBC 4.59 106/ul Normal 4.20-5.40 [facility] Comment on above: Performed By: #### L SONU GARDNER, SANYA #### [facility] [address] [place], [place] [address] Dr. Esthela Stevens WBC 6.3 103/ul Normal 4.0-11.0 [facility] Comment on above: Performed By: #### L SONU GARDNER, BMP #### [facility] [address] [place], [place] [address] ABD/PELV W CONon [...] TIMMY SHAY Date: 2022-08-12 17:04 Normal [facility] CULTURE URINEon 08-12-2022 CULTURE URINE Culture Observations: MODERATE GROWTH OF MIXED GENITAL SUNITA. NO POTENTIAL PATHOGENS SEEN. Normal [facility] Comment on above: Performed By: #### L IVER, LDH, BMP #### [facility] [address] [place] [address] Dr. Esthela Stevens ER URINE PROFILEon 3 Bilirubin Ql (U) Negative Normal NEGATIVE [facility] Comment on above: Performed By: #### P REG #### [facility] [address] [place] [address] Dr. Esthela Stevens Clarity (U) CLEAR Normal CLEAR [facility] Comment on above: Performed By: #### P REG #### [facility] [address] [place] [address] Dr. Esthela Stevens Color (U) LT. YELLOW Normal YELLOW [facility] Comment on above: Performed By: #### P REG #### [facility] [address] [place] [address] Dr. Esthela ARGUELLES A micrscopic examination will be performed if indicated. Normal [facility] Comment on above: Performed By: #### P REG #### [facility] [address] [place] [address] Dr. Esthela Stevens Glucose Ql (U) Negative Normal NEGATIVE [facility] Comment on above: Performed By: #### P REG #### [facility] [address] [place] [address] Dr. Esthela Stevens Hemoglobin Ql (U) Negative Normal NEGATIVE [facility] Comment on above: Performed By: #### P REG #### [facility] [address] [address] [address] Esthela Stevens Ketones Ql (U) Negative Normal NEGATIVE [facility] Comment on above: Performed By: #### P REG #### [facility] [address] [place] [address] Dr. Esthela Stevens LEUKOCYTES SMALL Abnormal NEGATIVE [facility] Comment on above: Performed By: #### P REG #### [facility] [address] [place] [address] Dr. Esthela Stevens Nitrite Ql (U) Negative Normal NEGATIVE [facility] Comment on above: Performed By: #### P REG #### [facility] [address] [place] [address] Dr. Esthela Stevens pH (U) 7.0 [pH] Normal 5-9 [facility] Comment on above: Performed By: #### P REG #### [facility] [address] [place] [address] Dr. Esthela Stevens SPEC GRAVITY 1.020 Normal 1.005-<=1.025 [facility] Comment on above: Performed By: #### P REG #### [facility] [address] [place] [address] Dr. Esthela Stevens UA PROTEIN Negative Normal NEGATIVE/ TRACE [facility] Comment on above: Performed By: #### P REG #### [facility] [address] [place] [address] Dr. Esthela Stevens UR MICRO IND INDICATED Normal [facility] Comment on above: Performed By: #### P REG #### [facility] [address] [place] [address] Dr. Esthela Stevens Urobilinogen Qn (U) 0.2 {Emeka'U}/dL Normal 0.2 - 1. 0 [facility] Comment on above: Performed By: #### P REG #### [facility] [address] [place] [address] Dr. Esthela Stevens LIPASEon 08-12-2022 Lipase [Catalytic activity/Vol] 75.0 U/L Normal 73.0-393.0 [facility] Comment on above: Performed By: #### P REG #### [facility] [address] [place] [address] Dr. Esthela Stevens URon 08-12-2022 , QUAL Negative Normal NEGATIVE [facility] Comment on above: Performed By: #### P REG #### [facility] [address] [place] [address] Dr. Esthela Stevens PROF 14(COMP METB)on 023 Albumin [Mass/Vol] 4.0 g/dL Normal 3.4-5.0 [facility] Comment on above: Performed By: #### P REG #### [facility] [address] [place] [address] Dr. Esthela Stevens Albumin/Globulin [Mass ratio] 1.1 {ratio} Normal [facility] Comment on above: Performed By: #### P REG #### [facility] [address] [place] [address] Dr. Esthela Stevens ALP [Catalytic activity/Vol] 73 U/L Normal 46-116 [facility] Comment on above: Performed By: #### P REG #### [facility] [address] [place] [address] Dr. Esthela Stevens ALT [Catalytic activity/Vol] 82 U/L Critically high 14-59 [facility] Comment on above: Performed By: #### P REG #### [facility] [address] [place] [address] Dr. Esthela Stevens Anion gap [Moles/Vol] 12.0 mmol/L Normal [facility] Comment on above: Performed By: #### P REG #### [facility] [address] [address] [address] Esthela Stevens AST [Catalytic activity/Vol] 33 U/L Normal 15-37 [facility] Comment on above: Performed By: #### P REG #### [facility] [address] [place] [address] Dr. Esthela Stevens Bilirubin [Mass/Vol] 0.2 mg/dL Normal 0.2-1.0 [facility] Comment on above: Performed By: #### P REG #### [facility] [address] [address] [address] Esthela Stevesn Calcium [Mass/Vol] 9.4 mg/dL Normal 8.5-10.1 [facility] Comment on above: Performed By: #### P REG #### [facility] [address] [address] [address] Esthela Stevens Chloride [Moles/Vol] 102 mmol/L Normal 98-107 [facility] Comment on above: Performed By: #### P REG #### [facility] [address] [address] [address] Esthela Stevens CO2 [Moles/Vol] 27.8 mmol/L Normal 21.0-32.0 [facility] Comment on above: Performed By: #### P REG #### [facility] [address] [address] [address] Esthela Stevens Creatinine [Mass/Vol] 0.69 mg/dL Normal 0.55-1.02 [facility] Comment on above: Performed By: #### P REG #### [facility] [address] [address] [address] Esthela Stevens EGFR-AF TURKMEN >60 Normal >=60 [facility] Comment on above: Performed By: #### P REG #### [facility] [address] [address] [address] Esthela Stevens EGFR-NON AF TURKMEN >60 Normal >=60 [facility] Comment on above: Performed By: #### P REG #### [facility] [address] [address] [address] Esthela Stevens Globulin (S) [Mass/Vol] 3.5 g/dL Normal [facility] Comment on above: Performed By: #### P REG #### [facility] [address] [place] [address] Dr. Esthela Stevens Glucose [Mass/Vol] 109 mg/dL Critically high 74-106 [facility] Comment on above: Performed By: #### P REG #### [facility] [address] [address] [address] Esthela Stevens Potassium [Moles/Vol] 3.8 mmol/L Normal 3.5-5.1 [facility] Comment on above: Performed By: #### P REG #### [facility] [address] [place] [address] Dr. Esthela Stevens Protein [Mass/Vol] 7.5 g/dL Normal 6.4-8.[address] [facility] Comment on above: Performed By: #### P REG #### [facility] [address] [place] [address] Dr. Esthela Stevens Sodium [Moles/Vol] 138 mmol/L Normal 136-[address] [facility] Comment on above: Performed By: #### P REG #### [facility] [address] [place] [address] Dr. Esthela Stevens Urea nitrogen [Mass/Vol] 6.0 mg/dL Critically low 7.0-18.0 [facility] Comment on above: Performed By: #### P REG #### [facility] [address] [place] [address] Dr. Esthela Stevens Urea nitrogen/Creatinine [Mass ratio] 8.7 mg/mg Normal [facility] Comment on above: Performed By: #### P REG #### [facility] [address] [place] [address] Dr. Esthela Stevens URINE MICROSCOPIC ONLYon BACTERIA SMALL Abnormal NONE SEEN [facility] Comment on above: Performed By: #### P REG #### [facility] [address] [place] [address] Dr. Esthela Stevens Bacteria identified Cx Nom (U) INDICATED Normal [facility] Comment on above: Performed By: #### P REG #### [facility] [address] [place] [address] Dr. Esthela Stevens CAST NONE SEEN Normal NONE SEEN [facility] Comment on above: Performed By: #### P REG #### [facility] [address] [place] [address] Dr. Esthela Stevens Crystals LM Nom (Urine sed) NONE SEEN Normal NONE SEEN [facility] Comment on above: Performed By: #### P REG #### [facility] [address] [place] [address] Dr. Esthela Stevens Epithelial cells LM Ql (Urine sed) MODERATE Abnormal NONE SEEN /RARE [facility] Comment on above: Performed By: #### P REG #### [facility] [address] [place] [address] Dr. Esthela Stevens MUCOUS NONE SEEN Normal NONE SEEN [facility] Comment on above: Performed By: #### P REG #### [facility] [address] [place] [address] Dr. Esthela Stevens RBC NONE SEEN Abnormal 0-2 [facility] Comment on above: Performed By: #### P REG #### [facility] [address] [place] [address] Dr. Esthela Stevens WBC 2-5 Abnormal NONE SEEN [facility] Comment on above: Performed By: #### P REG #### [facility] [address] [place] [address] Dr. Esthela Stevens PAP ACOG PANEL 2: 21 to 29on 08-11-2022 . . Normal [facility] Comment on above: Performed By: #### [id number] #### [facility] [address] [place] [address] Dr. Esthela Stevens Age Gdln ACOG Testing 21-29 Normal [facility] Comment on above: Performed By: #### [id number] #### [facility] [address] [place] [address] Dr. Esthela Stevens DIAGNOSIS: Comment Abnormal [facility] Comment on above: Result Comment: EPIT HELIAL CELL ABNORMALITY. ATYPICAL SQUAMOUS CELLS OF UNDETERMINED SIGNIFICANCE (ASC-US). Performed By: #### [id number] #### [facility] [address] [place] [address] Dr. Esthela Stevens Electronically signed by: Comment Normal [facility] Comment on above: Result Comment: Zoe Moncada MD, Pathologist Performed By: #### [id number] #### [facility] [address] [place] [address] Dr. Esthela Stevens HPV Aptima Negative Normal Negative [facility] Comment on above: Result Comment: This nucleic acid amplification test detects fourteen high-risk HPV types (16,18,31,33,35,39,45,51,52,56,58,59,66,68) without differentiation. Performed By: #### [id number] #### [facility] [address] [place] [address] Dr. Esthela Stevens Methodology: Comment Normal [facility] Comment on above: Result Comment: This liquid based ThinPrep(R) pap test was screened with the use of an image guided system. Performed By: #### [id number] #### [facility] [address] [place] [address] Dr. Esthela Stevens Note: Comment Normal [facility] Comment on above: Result Comment: The Pap smear is a screening test designed to aid in the detection of premalignant and malignant conditions of the uterine cervix. It is not a diagnostic procedure and should not be used as the sole means of detecting cervical cancer. Both false-positive and false-negative reports do occur. . Performed By: #### [id number] #### [facility] [address] [place] [address] Dr. Esthela Stevens Pathologist Provided ICD10 Comment Normal [facility] Comment on above: Result Comment: [id number]. [id number] Performed By: #### [id number] #### [facility] [address] [place] [address] Dr. Esthela Stevens Performed by: Comment Normal [facility] Comment on above: Result Comment: Nevin Ardon Sign Language Translator (ASCP) Performed By: #### [id number] #### [facility] [address] [place] [address] Dr. Esthela Stevens Reflex Criteria: Comment Normal [facility] Comment on above: Result Comment: See below for HPV testing results. . Performed By: #### 4 [id number] #### [facility] [address] [place] [address] Dr. Esthela Stevens Specimen adequacy: Comment Normal [facility] Comment on above: Result Comment: Sati sfactory for evaluation. Endocervical and/or squamous metaplastic cells (endocervical component) are present. Performed By: #### 4 [id number] #### [facility] [address] [address] [address] Esthela Stevens CALCITONINon 07-08-2022 Calcitonin <1.89 Normal <=9.53 [facility] Comment on above: Result Comment: This test was performed on the [employer] Immunoassay platform by [employer] which is a two-site sandwich chemiluminescent immunoassay. It is important to note that assays using different manufacturers and/or methods may not be comparable. Performed By: #### Y CHGRA #### [facility] (DEFAULT) [address] [place] [id number] CBC AND ELECTRONIC DIFFon Basophils (Bld) [#/Vol] 0.04 10*3/uL Normal 0.00-0.15 [facility] Comment on above: Performed By: #### RODRIGO Rangel CHOlena, MGO #### [facility] (DEFAULT) [address] [place] [address] 16198 Basophils/100 WBC (Bld) 0.7 % Normal [facility] Comment on above: Performed By: #### RODRIGO Rangel CHMRenee, MGO #### [facility] (DEFAULT) [address] [place] [address]322 DIFF STATUS Electronic Differential Normal [facility] Comment on above: Performed By: #### RODRIGO Rangel CHMRenee, MGO #### [facility] (DEFAULT) [address] [place] [address] 11007 Eosinophils (Bld) [#/Vol] 0.14 10*3/uL Normal 0.00-0.42 [facility] Comment on above: Performed By: #### RODRIGO Rangel CHM7, MGO #### [facility] (DEFAULT) [address] [place] [address] 96220 Eosinophils/100 WBC (Bld) 2.4 % Normal [facility] Comment on above: Performed By: #### C A, IPB, CHM7, MGO #### [facility] (DEFAULT) [address] [place] [address] 80092 Hematocrit (Bld) [Volume fraction] 38.1 % Normal 34.9-44.3 [facility] Comment on above: Performed By: #### Dayday Santos, IPB, CHM7, MGO #### [facility] (DEFAULT) [address] [place] [address] 74191 Hemoglobin (Bld) [Mass/Vol] 12.2 g/dL Normal 11.4-15.2 [facility] Comment on above: Performed By: #### Dayday Santos, IPB, CHM7, MGO #### [facility] (DEFAULT) [address] [place] [address] 66258 Immature Grans % 0.2 % Normal [facility] Comment on above: Performed By: #### RODRIGO Rangel, CHM7, MGO #### [facility] (DEFAULT) [address] [place] [address] 87760 Immature Grans Absolute < Normal <=0.08 [facility] Comment on above: Performed By: #### Dayday Santos, RODRIGO, CHM7, MGO #### [facility] (DEFAULT) [address] [place] [address] 37570 Lymphocytes (Bld) [#/Vol] 2.14 10*3/uL Normal 1.16-3.51 [facility] Comment on above: Performed By: #### Dayday Santos, IPB, CHM7, MGO #### [facility] (DEFAULT) [address] [place] [address] 11329 Lymphocytes/100 WBC (Bld) 36.8 % Normal [facility] Comment on above: Performed By: #### Dayday Santos, IPB, CHM7, MGO #### [facility] (DEFAULT) [address] [place] [address] 66535 MCV (RBC) [Entitic vol] 83.2 fL Normal 79.6-97.7 [facility] Comment on above: Performed By: #### C A, IPB, CHM7, MGO #### [facility] (DEFAULT) [address] [place] [address] 32173 Mean Cell Hgb 26.6 pg Normal 25.9-33.9 [facility] Comment on above: Performed By: #### C A, IPB, CHM7, MGO #### [facility] (DEFAULT) [address] [place] [address] 12419 Mean Cell Hgb Conc 32.0 g/dL Normal 31.4-35.9 [facility] Comment on above: Performed By: #### C A, IPB, CHM7, MGO #### [facility] (DEFAULT) [address] [place] [address] 79215 Monocytes (Bld) [#/Vol] 0.49 10*3/uL Normal 0.22-0.87 [facility] Comment on above: Performed By: #### C A, IPB, CHM7, MGO #### [facility] (DEFAULT) [address] [place] [address] 90913 Monocytes/100 WBC (Bld) 8.4 % Normal [facility] Comment on above: Performed By: #### C A, IPB, CHM7, MGO #### [facility] (DEFAULT) [address] [place] [address] 09434 Nucleated RBC 0.0 /100 WBC Normal <=0.2 [facility] Comment on above: Performed By: #### C A, IPB, CHM7, MGO #### [facility] (DEFAULT) [address] [place] [address] 13571 Platelet mean volume (Bld) [Entitic vol] 9.0 fL Normal 8.5-12.2 [facility] Comment on above: Performed By: #### C A, IPB, CHM7, MGO #### [facility] (DEFAULT) [address] [place] [address] 61628 Platelets (Bld) [#/Vol] 273 10*3/uL Normal 150-393 [facility] Comment on above: Performed By: #### C A, IPB, CHM7, MGO #### [facility] (DEFAULT) [address] [place] [address] 65941 RBC (Bld) [#/Vol] 4.58 10*6/uL Normal 3.91-5.04 [facility] Comment on above: Performed By: #### C A, IPB, CHM7, MGO #### [facility] (DEFAULT) [address] [place] [address] 90321 RBC Distribution 13.0 % Normal 10.8-14.9 [facility] Comment on above: Performed By: #### C A, IPB, CHM7, MGO #### [facility] (DEFAULT) [address] [place] [address] 20929 Segs + Bands Auto 51.5 % Normal [facility] Comment on above: Performed By: #### C A, IPB, CHM7, MGO #### [facility] (DEFAULT) [address] [place] [address] 90840 Segs + Bands,Absolute Auto 2.99 K/uL Normal 1.64-7.28 [facility] Comment on above: Performed By: #### C A, IPB, CHM7, MGO #### [facility] (DEFAULT) [address] [place] [address] 84481 WBC (Bld) [#/Vol] 5.81 10*3/uL Normal 3.99-11.19 [facility] Comment on above: Performed By: #### C A, IPB, CHM7, MGO #### [facility] (DEFAULT) [address] [place] [address] 19632 CHROMOGRANIN Aon 07-08-2022 Chromogranin A 25 ng/mL Normal <93 [facility] Comment on above: Result Comment: ADDITIONAL INFORMATION This test was developed and its performance characteristics determined by [facility] in a manner consistent with CLIA [...] a homogeneous time-resolved immunofluorescent assay manufactured by [employer] and performed on the [employer] Compact Plus. Values obtained with different assay methods or kits may be different and cannot be used interchangeably. Test results cannot be interpreted as absolute evidence for the presence or absence of malignant disease. Test Performed by: [place] [address] Belt Maker: Ed Russo M.D. Ph.D.; CLIA# [id number] Performed By: #### C Danielle, IPB, CHM7, MGO #### [facility] (DEFAULT) [address] [address] COMPREHENSIVE METABOLIC PANE [facility] 07-08-2022 Albumin [Mass/Vol] 4.7 g/dL Normal 3.5-5.0 [facility] Comment on above: Performed By: #### C Danielle, IPB, CHM7, MGO, HFP #### [facility] (DEFAULT) [address] [place] [address] 24127 ALP [Catalytic activity/Vol] 67 U/L Normal 32-126 [facility] Comment on above: Performed By: #### C A, IPB, CHM7, MGO, HFP #### [facility] (DEFAULT) [address] [address] ALT [Catalytic activity/Vol] 88 U/L High 9-48 [facility] Comment on above: Performed By: #### C A, IPB, CHM7, MGO, HFP #### [facility] (DEFAULT) [address] [place] [address] 97782 Anion gap [Moles/Vol] 12 mmol/L Normal 7-17 [facility] Comment on above: Performed By: #### C A, IPB, CHM7, MGO, HFP #### [facility] (DEFAULT) [address] [place] [address] 52327 AST [Catalytic activity/Vol] 42 U/L High 10-39 [facility] Comment on above: Performed By: #### C A, IPB, CHM7, MGO, HFP #### [facility] (DEFAULT) [address] [place] [address] 73797 Bilirubin [Mass/Vol] 0.5 mg/dL Normal <1.5 [facility] Comment on above: Performed By: #### C A, IPB, CHM7, MGO, HFP #### [facility] (DEFAULT) [address] [place] [address] 34541 Calcium [Mass/Vol] 9.8 mg/dL Normal 8.6-10.5 [facility] Comment on above: Performed By: #### C A, IPB, CHM7, MGO, HFP #### [facility] (DEFAULT) [address] [place] [address] 01693 Chloride [Moles/Vol] 103 mmol/L Normal 98-108 [facility] Comment on above: Performed By: #### C A, IPB, CHM7, MGO, HFP #### [facility] (DEFAULT) [address] [place] [address] 22667 CO2 [Moles/Vol] 28 mmol/L Normal 21-31 [facility] Comment on above: Performed By: #### C A, IPB, CHM7, MGO, HFP #### [facility] (DEFAULT) [address] [place] [address] 60467 Creatinine [Mass/Vol] 0.69 mg/dL Normal 0.50-1.20 [facility] Comment on above: Performed By: #### Daydya Santos, IPB, CHM7, MGO, HFP #### [facility] (DEFAULT) [address] [place] [address] 35273 eGFR, CKD-EPI, Female > Normal >=60 [facility] Comment on above: Result Comment: Repo rted eGFR is based on the CKD-EPI 2020 equation using creatinine, age, and sex. Performed By: #### C Danielle, IPB, CHM7, MGO, HFP #### [facility] (DEFAULT) [address] [place] [address] 16411 Glucose [Mass/Vol] 93 mg/dL Normal 70-99 [facility] Comment on above: Performed By: #### Dayday Santos, IPB, CHM7, MGO, HFP #### [facility] (DEFAULT) [address] [place] [address] 02999 Osmolality [Osmolality] 289 mosm/kg Normal 278-305 [facility] Comment on above: Performed By: #### Dayday Santos, IPB, CHM7, MGO, HFP #### [facility] (DEFAULT) [address] [place] [address] 15758 Potassium [Moles/Vol] 4.2 mmol/L Normal 3.5-5.0 [facility] Comment on above: Performed By: #### Dayday Santos, IPB, CHM7, MGO, HFP #### [facility] (DEFAULT) [address] [place] [address] 00796 Protein [Mass/Vol] 7.4 g/dL Normal 6.4-8.3 [facility] Comment on above: Performed By: #### Dayday A, IPB, CHM7, MGO, HFP #### [facility] (DEFAULT) [address] [place] [address] 46204 Sodium [Moles/Vol] 139 mmol/L Normal 135-145 [facility] Comment on above: Performed By: #### Dayday Santos, IPB, CHM7, MGO, HFP #### [facility] (DEFAULT) [address] [place] [address] 98835 Urea nitrogen [Mass/Vol] 8 mg/dL Normal 7-25 [facility] Comment on above: Performed By: #### Dayday Santos, IPB, CHM7, MGO, HFP #### [facility] (DEFAULT) [address] [place] [address] 90439 Urea nitrogen/Creatinine [Mass ratio] 12 mg/mg Normal [facility] Comment on above: Performed By: #### Dayday Santos, IPB, CHM7, MGO, HFP #### [facility] (DEFAULT) [address] [place] [address] 49721 GASTRIN - NON-STIMULATEDon 09-08-2021 Gastrin 21 pg/mL Normal [facility] Comment on above: Result Comment: REFERENCE VALUE <100 Reference ranges valid for >= 8 hour fast. Test Performed by: [place] [id number] Belt Maker: Ed Russo M.D. Ph.D.; CLIA# [id number] Performed By: #### Dayday Santos, SHANEKAB, CHM7, MGO #### [facility] (DEFAULT) [address] [place] [address] 82086 LACTATE DEHYDROGENASEon 12-2 LD Total 133 U/L Normal 100-190 [facility] Comment on above: Performed By: #### Dayday Santos, IPB, CHM7, MGO, HFP #### [facility] (DEFAULT) [address] [place] [address] 24025 PANCREATIC POLYPEPTIDEon Pancreatic Polypeptide 94 pg/mL Normal <228 [facility] Comment on above: Result Comment: ADDITIONAL INFORMATION This test was developed and its performance characteristics determined by [facility] in a manner consistent with CLIA requirements. This test has not been cleared or approved by the [place]. Food and Drug Administration. Test Performed by: [facility] [address] [place] [address] Belt Maker: Ed Russo M.D. Ph.D.; CLIA# [id number] Performed By: #### C A, IPB, CHM7, MGO #### [facility] ([facility]) [address] [place] [address] GI PANEL (PCR)on 06-03-2022 Adenovirus F 40/41 Not detected Normal NOT DETECTED [facility] Comment on above: Performed By: #### P REG #### [facility] [address] [place] [address] Dr. Esthela Stevens Astrovirus Not detected Normal NOT DETECTED [facility] Comment on above: Performed By: #### P REG #### [facility] [address] [place] [address] Dr. Esthela Stevens C. Diff toxin A/B Detected Critically abnormal NOT DETECTED [facility] Comment on above: Performed By: #### P REG #### [facility] [address] [place] [address] Dr. Esthela Stevens Campylobacter Not detected Normal NOT DETECTED [facility] Comment on above: Performed By: #### P REG #### [facility] [address] [place] [address] Dr. Esthela Stevens Cryptosporidium Not detected Normal NOT DETECTED [facility] Comment on above: Performed By: #### P REG #### [facility] [address] [place] [address] Dr. Esthela Stevens Cyclos. Cayetanensis Not detected Normal NOT DETECTED [facility] Comment on above: Performed By: #### P REG #### [facility] [address] [place] [address] Dr. Esthela Stevens E. Coli O157 Not Applicable Normal Not Applicable [facility] Comment on above: Performed By: #### P REG #### [facility] [address] [place] [address] Dr. Esthela Stevens E. histolytica Not detected Normal NOT DETECTED The [facility] Comment on above: Performed By: #### P REG #### [facility] [address] [place] [address] Dr. Esthela Stevens EAEC Not detected Normal NOT DETECTED [facility] Comment on above: Performed By: #### P REG #### [facility] [address] [place] [address] Dr. Esthela Stevens EIEC Not detected Normal NOT DETECTED [facility] Comment on above: Performed By: #### P REG #### [facility] [address] [place] [address] Dr. Esthela Stevens EPEC Not detected Normal NOT DETECTED [facility] Comment on above: Performed By: #### P REG #### [facility] [address] [place] [address] Dr. Esthela Stevens ETEC Not detected Normal NOT DETECTED [facility] Comment on above: Performed By: #### P REG #### [facility] [address] [place] [address] Dr. Esthela Stevens G. Lamblia Not detected Normal NOT DETECTED [facility] Comment on above: Performed By: #### P REG #### [facility] [address] [place] [address] Dr. Esthela SANABRIAL CONTROLS PASSED Normal The [facility] Comment on above: Performed By: #### P REG #### [facility] [address] [place] [address] Dr. Esthela MERCADO JON HEADER GI PANEL BACTERIA Normal T [facility] Comment on above: Performed By: #### P REG #### [facility] [address] [place] [address] Dr. Esthela MERCADOHD ECOLI GI PANEL DIARRHEAGENIC E.COLI / SHIGELLA Normal [facility] Comment on above: Performed By: #### P REG #### [facility] [address] [place] [address] Dr. Esthela LARA INFO SEE BELOW Normal [facility] Comment on above: Result Comment: EAEC - Enteroaggregative E. Coli EPEC- Enteropathogenic E. Coli ETEC- Enterotoxigenic E. Coli lt/st STEC- Shigella-like toxin-producing E. Coli stx1/stx2 EIEC- Shigella/Enteroinvasive E. Coli Performed By: #### P REG #### [facility] [address] [address] [address] Esthela LARA PARASITES GI PANEL PARASITES Normal [facility] Comment on above: Performed By: #### P REG #### [facility] [address] [place] [address] Dr. Esthela LARA VIRUS GI PANEL VIRUSES Normal [facility] Comment on above: Performed By: #### P REG #### [facility] [address] [place] [address] Dr. Esthela Stevens Norovirus GI/GII Not detected Normal NOT DETECTED [facility] Comment on above: Performed By: #### P REG #### [facility] [address] [place] [address] Dr. Esthela Stevens P. Shigelloides Not detected Normal NOT DETECTED [facility] Comment on above: Performed By: #### P REG #### [facility] [address] [place] [address] Dr. Esthela Stevens Rotavirus A Not detected Normal NOT DETECTED [facility] Comment on above: Performed By: #### P REG #### [facility] [address] [place] [address] Dr. Esthela Stevens Salmonella Not detected Normal NOT DETECTED [facility] Comment on above: Performed By: #### P REG #### [facility] [address] [place] [address] Dr. Esthela Stevens Sapovirus Not detected Normal NOT DETECTED [facility] Comment on above: Performed By: #### P REG #### [facility] [address] [place] [address] Dr. Esthela Stevens STEC Not detected Normal NOT DETECTED [facility] Comment on above: Performed By: #### P REG #### [facility] [address] [place] [address] Dr. Esthela Stevens Vibrio Not detected Normal NOT DETECTED [facility] Comment on above: Performed By: #### P REG #### [facility] [address] [place] [address] Dr. Esthela Stevens Vibrio Cholera Not detected Normal NOT DETECTED [facility] Comment on above: Performed By: #### P REG #### [facility] [address] [place] [address] Dr. Esthela Stevens Y. Enterocolitica Not detected Normal NOT DETECTED [facility] Comment on above: Performed By: #### P REG #### [facility] [address] [place] [address] Dr. Esthela Stevens CBC AUTO DIFFon 06-02-2022 BASO # 0.1 103/ul Normal 0.0-0.1 [facility] Comment on above: Performed By: #### L IVER, LDH, BMP #### [facility] [address] [place] [address] Dr. Esthela Stevens Basophils/100 WBC (Bld) 0.6 % Normal 0.2-2.0 [facility] Comment on above: Performed By: #### L IVER, LDH, BMP #### [facility] [address] [place] [address] Dr. Esthela Stevens EO # 0.5 103/ul Normal 0.0-0.7 [facility] Comment on above: Performed By: #### L IVER, LDH, BMP #### [facility] [address] [place] [address] Dr. Esthela Stevens Eosinophils/100 WBC (Bld) 4.3 % Normal 0.9-7.0 [facility] Comment on above: Performed By: #### L IVER, LDH, BMP #### [facility] [address] [place] [address] Dr. Esthela Stevens Erythrocyte distribution width (RBC) [Ratio] 13.0 % Normal 11.0-15.0 [facility] Comment on above: Performed By: #### L IVER, LDH, BMP #### [facility] [address] [place] [address] Dr. Esthela Stevens Hematocrit (Bld) [Volume fraction] 33.6 % Critically low 36.0-48.0 [facility] Comment on above: Performed By: #### L IVER, LDH, BMP #### [facility] [address] [place] [address] Dr. Esthela Stevens Hemoglobin (Bld) [Mass/Vol] 10.9 g/dL Critically low 12.0-16.0 [facility] Comment on above: Performed By: #### L IVER, LDH, BMP #### [facility] [address] [place] [address] Dr. Esthela Stevens IG # 0.05 10e3/ul Critically high 0.00-0.03 [facility] Comment on above: Performed By: #### L IVER, LDH, BMP #### [facility] [address] [place] [address] Dr. Esthela Stevens IG % 0.5 % Normal 0.0-0.5 [facility] Comment on above: Performed By: #### L IVER, LDH, BMP #### [facility] [address] [place] [address] Dr. Esthela Stevens LYMPH # 2.4 103/ul Normal 1.2-3.8 [facility] Comment on above: Performed By: #### L IVER, LDH, BMP #### [facility] [address] [place] [address] Dr. Esthela Stevens Lymphocytes/100 WBC (Bld) 22.4 % Normal 20.5-60.0 [facility] Comment on above: Performed By: #### L IVER, LDH, BMP #### [facility] [address] [place] [address] Dr. Esthela Stevens MANUAL DIFF REQ NO Normal [facility] Comment on above: Performed By: #### L IVER, LDH, BMP #### [facility] [address] [place] [address] Dr. Esthela Stevens MCH (RBC) [Entitic mass] 26.9 pg Normal 26.7-34.0 [facility] Comment on above: Performed By: #### L IVER, LDH, BMP #### [facility] [address] [place] [address] Dr. Esthela Stevens MCHC (RBC) [Mass/Vol] 32.4 g/dL Normal 29.9-35.2 [facility] Comment on above: Performed By: #### L IVER, LDH, BMP #### [facility] [address] [place] [address] Dr. Esthela Stevens MCV (RBC) [Entitic vol] 83.0 fL Normal 81.0-99.0 [facility] Comment on above: Performed By: #### L IVER, LDH, BMP #### [facility] [address] [place] [address] Dr. Esthela Stevens MONO # 0.8 103/ul Normal 0.3-0.8 [facility] Comment on above: Performed By: #### L IVER, LDH, BMP #### [facility] [address] [place] [address] Dr. Esthela Stevens Monocytes/100 WBC (Bld) 7.1 % Normal 1.7-12.0 [facility] Comment on above: Performed By: #### L IVER, LDH, BMP #### [facility] [address] [place] [address] Dr. Esthela Stevens NEUT # 7.0 103/ul Critically high 1.4-6.5 [facility] Comment on above: Performed By: #### L IVER, LDH, BMP #### [facility] [address] [place] [address] Dr. Esthela Stevens Neutrophils/100 WBC (Bld) 65.1 % Normal 43.0-75.0 [facility] Comment on above: Performed By: #### L IVER, LDH, BMP #### [facility] [address] [place] [address] Dr. Esthela Stevens Platelet mean volume (Bld) [Entitic vol] 8.9 fL Critically low 9.5-13.5 [facility] Comment on above: Performed By: #### L IVER, LDH, BMP #### [facility] [address] [address] [address] Esthela Stevens PLT 519 103/ul Critically high 150-450 [facility] Comment on above: Performed By: #### L IVER, LDH, BMP #### [facility] [address] [address] [address] Esthela Stevens RBC 4.05 106/ul Critically low 4.20-5.40 [facility] Comment on above: Performed By: #### L IVER, LDH, BMP #### [facility] [address] [address] [address] Esthela Stevens WBC 10.8 103/ul Normal 4.0-11.0 [facility] Comment on above: Performed By: #### L IVER, LDH, BMP #### [facility] [address] [place] [address] Dr. Esthela Stevens PROF 14(COMP METB)on 022 Albumin [Mass/Vol] 3.7 g/dL Normal 3.4-5.0 [facility] Comment on above: Performed By: #### L IVER, LDH, BMP #### [facility] [address] [place] [address] Dr. Esthela Stevens Albumin/Globulin [Mass ratio] 1.0 {ratio} Normal [facility] Comment on above: Performed By: #### L IVER, LDH, BMP #### [facility] [address] [address] [address] Esthela Stevens ALP [Catalytic activity/Vol] 75 U/L Normal 46-116 [facility] Comment on above: Performed By: #### L IVER, LDH, BMP #### [facility] [address] [place] [address] Dr. Esthela Stevens ALT [Catalytic activity/Vol] 95 U/L Critically high 14-59 [facility] Comment on above: Performed By: #### L IVER, LDH, BMP #### [facility] [address] [place] [address] Dr. Esthela Stevens Anion gap [Moles/Vol] 13.4 mmol/L Normal [facility] Comment on above: Performed By: #### L IVER, LDH, BMP #### [facility] [address] [address] [address] Esthela Stevens AST [Catalytic activity/Vol] 31 U/L Normal 15-37 [facility] Comment on above: Performed By: #### L IVER, LDH, BMP #### [facility] [address] [place] [address] Dr. Esthela Stevens Bilirubin [Mass/Vol] 0.1 mg/dL Critically low 0.2-1.0 [facility] Comment on above: Performed By: #### L IVER, LDH, BMP #### [facility] [address] [place] [address] Dr. Esthela Stevens Calcium [Mass/Vol] 9.3 mg/dL Normal 8.5-10.1 [facility] Comment on above: Performed By: #### L IVER, LDH, BMP #### [facility] [address] [place] [address] Dr. Esthela Stevens Chloride [Moles/Vol] 102 mmol/L Normal 98-107 [facility] Comment on above: Performed By: #### L IVER, LDH, BMP #### [facility] [address] [place] [address] Dr. Esthela Stevens CO2 [Moles/Vol] 26.4 mmol/L Normal 21.0-32.0 [facility] Comment on above: Performed By: #### L IVER, LDH, BMP #### [facility] [address] [place] [address] Dr. Esthela Stevens Creatinine [Mass/Vol] 0.67 mg/dL Normal 0.55-1.02 [facility] Comment on above: Performed By: #### L IVER, LDH, BMP #### [facility] [address] [place] [address] Dr. Esthela Stevens EGFR-AF TURKMEN >60 Normal >=60 [facility] Comment on above: Performed By: #### L IVER, LDH, BMP #### [facility] [address] [address] [address] Esthela Stevens EGFR-NON AF TURKMEN >60 Normal >=60 [facility] Comment on above: Performed By: #### L IVER, LDH, BMP #### [facility] [address] [address] [address] Esthela Stevens Globulin (S) [Mass/Vol] 3.7 g/dL Normal [facility] Comment on above: Performed By: #### L IVER, LDH, BMP #### [facility] [address] [address] [address] Esthela Stevens Glucose [Mass/Vol] 101 mg/dL Normal 74-[address] [facility] Comment on above: Performed By: #### L IVER, LDH, BMP #### [facility] [address] [address] [address] Esthela Stevens Potassium [Moles/Vol] 3.8 mmol/L Normal 3.5-5.1 [facility] Comment on above: Performed By: #### L IVER, LDH, BMP #### [facility] [address] [address] [address] Esthela Stevens Protein [Mass/Vol] 7.4 g/dL Normal 6.4-8.[address] [facility] Comment on above: Performed By: #### L IVER, LDH, BMP #### [facility] [address] [address] [address] Esthela Stevens Sodium [Moles/Vol] 138 mmol/L Normal 136-[address] [facility] Comment on above: Performed By: #### L IVER, LDH, BMP #### [facility] [address] [address] [address] Esthela Stevens Urea nitrogen [Mass/Vol] 12.0 mg/dL Normal 7.0-18.0 [facility] Comment on above: Performed By: #### L IVER, LDH, BMP #### [facility] [address] [address] [address] Esthela Stevens Urea nitrogen/Creatinine [Mass ratio] 17.9 mg/mg Normal [facility] Comment on above: Performed By: #### L IVER, LDH, BMP #### [facility] [address] [place], [place] [address] Dr. Esthela Stevens CALCIUMon 05-29-2022 Calcium [Mass/Vol] 9.0 mg/dL Normal 8.6-10.5 [facility] Comment on above: Performed By: #### C Danielle, IPB, CHM7, MGO #### [facility] (DEFAULT) [address] [place] [address] Calcium [Mass/Vol] 9.0 mg/dL 8.6 - 10. 5 mg/dL [facility] CBC,PLATELETSon 05-29-2022 Hematocrit (Bld) [Volume fraction] 33.0 % Low 34.9-44.3 [facility] Comment on above: Performed By: #### C Danielle, IPB, CHM7, MGO, HFP #### [facility] (DEFAULT) [address] [place] [address]408 Hemoglobin (Bld) [Mass/Vol] 10.5 g/dL Low 11.4-15.2 [facility] Comment on above: Performed By: #### Dayday Santos, IPB, CHM7, MGO, HFP #### [facility] (DEFAULT) [address] [place] [address]24 MCV (RBC) [Entitic vol] 85.1 fL Normal 79.6-97.7 [facility] Comment on above: Performed By: #### C A, IPB, CHM7, MGO, HFP #### [facility] (DEFAULT) [address] [place] [address]2013 Mean Cell Hgb 27.1 pg Normal 25.9-33.9 [facility] Comment on above: Performed By: #### C A, IPB, CHM7, MGO, HFP #### [facility] (DEFAULT) [address] [place] [address] 98221 Mean Cell Hgb Conc 31.8 g/dL Normal 31.4-35.9 [facility] Comment on above: Performed By: #### C Danielle, IPB, CHM7, MGO, HFP #### [facility] (DEFAULT) [address] [place] [address]76 Platelet mean volume (Bld) [Entitic vol] 9.1 fL Normal 8.5-12.2 [facility] Comment on above: Performed By: #### Dayday Santos, IPB, CHM7, MGO, HFP #### [facility] (DEFAULT) [address] [place] [address] Platelets (Bld) [#/Vol] 423 10*3/uL High 150-393 [facility] Comment on above: Performed By: #### Dayday A, IPB, CHM7, MGO, HFP #### [facility] (DEFAULT) [address] [place] [address] RBC (Bld) [#/Vol] 3.88 10*6/uL Low 3.91-5.04 [facility] Comment on above: Performed By: #### Dayday Santos, IPB, CHM7, MGO, HFP #### [facility] (DEFAULT) [address] [place] [address] 31500 RBC Distribution 13.1 % Normal 10.8-14.9 [facility] Comment on above: Performed By: #### Dayday Santos, IPB, CHM7, MGO, HFP #### [facility] (DEFAULT) [address] [place] [address]92 WBC (Bld) [#/Vol] 7.36 10*3/uL Normal 3.99-11.19 [facility] Comment on above: Performed By: #### Dayday A, IPB, CHM7, MGO, HFP #### [facility] (DEFAULT) [address] [place] [address]77[address] Erythrocyte distribution width (RBC) [Ratio] 13.1 % 10.8 - 14.9 % [facility] Hematocrit (Bld) [Volume fraction] 33.0 % Low 34.9 - 44.3 % [facility] Hemoglobin (Bld) [Mass/Vol] 10.5 g/dL Low 11.4 - 15.2 g/dL [facility] Interpretation and review of laboratory results Abnormal [facility] MCH (RBC) [Entitic mass] 27.1 pg 25.9 - 33.9 pg [facility] MCHC (RBC) [Mass/Vol] 31.8 g/dL 31.4 - 35.9 g/dL [facility] MCV (RBC) [Entitic vol] 85.1 fL 79.6 - 97.7 fL [facility] Platelet mean volume (Bld) [Entitic vol] 9.1 fL 8.5 - 12.2 fL [facility] Platelets (Bld) [#/Vol] 423 10*3/uL High 150 - 393 K/uL [facility] RBC (Bld) [#/Vol] 3.88 10*6/uL Low [facility] WBC (Bld) [#/Vol] 7.36 10*3/uL 3.99 - 11. 19 K/uL [facility] CHEM 7 (LYTES,BUN,CREA,GLUC) on 05-29-2022 Anion gap [Moles/Vol] 13 mmol/L Normal 7-17 [facility] Comment on above: Performed By: #### RODRIGO Rangel, MELVINM7, MGO #### [facility] (DEFAULT) [address] [address] Chloride [Moles/Vol] 104 mmol/L Normal 98-108 [facility] Comment on above: Performed By: #### RODRIGO Rangel, MELVINM7, MGO #### [facility] (DEFAULT) [address] [address] CO2 [Moles/Vol] 26 mmol/L Normal 21-31 [facility] Comment on above: Performed By: #### RODRIGO Rangel, MELVINM7, MGO #### [facility] (DEFAULT) [address] [place] [address] Creatinine [Mass/Vol] 0.66 mg/dL Normal 0.50-1.20 [facility] Comment on above: Performed By: #### RODRIGO Rangel, MELVINM7, MGO #### [facility] (DEFAULT) [address] [place] [address]238 eGFR, CKD-EPI, Female > Normal >=60 [facility] Comment on above: Result Comment: Repo rted eGFR is based on the CKD-EPI 2020 equation using creatinine, age, and sex. Performed By: #### RODRIGO Rangel CHM7, MGO #### [facility] (DEFAULT) [address] [place] [address] Glucose [Mass/Vol] 93 mg/dL Normal 70-99 [facility] Comment on above: Performed By: #### RODRIGO Rangel CHM7, MGO #### [facility] (DEFAULT) [address] [place] [address] Osmolality [Osmolality] 288 mosm/kg Normal 278-305 [facility] Comment on above: Performed By: #### RODRIGO Rangel CHM7, MGO #### [facility] (DEFAULT) [address] [place] [address] 92787 Potassium [Moles/Vol] 4.2 mmol/L Normal 3.5-5.0 [facility] Comment on above: Performed By: #### SHANEKA RangelB, CHM7, MGO #### [facility] (DEFAULT) [address] [place] [address] 66917 Sodium [Moles/Vol] 139 mmol/L Normal 135-145 [facility] Comment on above: Performed By: #### SHANEKA RangelB, CHM7, MGO #### [facility] (DEFAULT) [address] [place] [address] 11628 Urea nitrogen [Mass/Vol] 5 mg/dL Low 7-25 [facility] Comment on above: Performed By: #### RODRIGO Rangel CHM7, MGO #### [facility] (DEFAULT) [address] [place] [address] Urea nitrogen/Creatinine [Mass ratio] 8 mg/mg Normal [facility] Comment on above: Performed By: #### RODRIGO Rangel, CHARLIE7, MGO #### [facility] (DEFAULT) [address] [place] [address] Anion gap [Moles/Vol] 13 mmol/L 7 - 17 mmol/L [facility] Chloride [Moles/Vol] 104 mmol/L 98 - 10 8 mmol/L [facility] CO2 [Moles/Vol] 26 mmol/L 21 - 31 mmol/L [facility] Creatinine [Mass/Vol] 0.66 mg/dL 0.50 - 1.20 mg/dL [facility] GFR/1.73 sq M.predicted CKD-EPI (S/P/Bld) [Vol rate/Area] - PINF [facility] Comment on above: Reported eGFR is bas ed on the CKD-EPI 2020 equation using creatinine, age, and sex. Glucose [Mass/Vol] 93 mg/dL 70 - 99 mg/dL [facility] Osmolality Calc [Osmolality] 288 [facility] Potassium [Moles/Vol] 4.2 mmol/L 3.5 - 5.0 mmol/L [facility] Sodium [Moles/Vol] 139 mmol/L 135 - 145 mmol/L [facility] Urea nitrogen [Mass/Vol] 5 mg/dL Low 7 - 25 mg/dL [facility] Urea nitrogen/Creatinine [Mass ratio] 8 mg/mg [facility] MAGNESIUMon 05-29-2022 Magnesium [Mass/Vol] 2.1 mg/dL Normal 1.6-2.6 [facility] Comment on above: Performed By: #### RODRIGO Rangel, CHARLIE7, MGO #### [facility] (DEFAULT) [address] [place] [address] 03222 Magnesium [Mass/Vol] 2.1 mg/dL 1.6 - 2 .6 mg/dL [facility] No Panel Informationon 05-29 Interpretation and review of laboratory results Abnormal [facility] Interpretation and review of laboratory results Normal [facility] PHOSPHATE, INORGANICon 05-29 Phosphorous 4.8 mg/dL High 2.2-4.6 [facility] Comment on above: Performed By: #### RODRIGO Rangel, CHM7, MGO #### [facility] (DEFAULT) [address] [place] [address] 32861 Phosphate [Mass/Vol] 4.8 mg/dL High 2.2 - 4 .6 mg/dL [facility] CALCIUMon 05-28-2022 Calcium [Mass/Vol] 8.6 mg/dL Normal 8.6-10.5 [facility] Comment on above: Performed By: #### RODRIGO Rangel, CHM7, MGO #### [facility] (DEFAULT) [address] [place] [address] 18115 Calcium [Mass/Vol] 8.6 mg/dL 8.6 - 10. 5 mg/dL [facility] CBC,PLATELETSon 05-28-2022 Hematocrit (Bld) [Volume fraction] 30.5 % Low 34.9-44.3 [facility] Comment on above: Performed By: #### RODRIGO Rangel, MELVINM7, MGO, HFP #### [facility] (DEFAULT) [address] [place] [address] 14241 Hemoglobin (Bld) [Mass/Vol] 9.8 g/dL Low 11.4-15.2 [facility] Comment on above: Performed By: #### RODRIGO Rangel, CHM7, MGO, HFP #### [facility] (DEFAULT) [address] [place] [address] 36656 MCV (RBC) [Entitic vol] 83.6 fL Normal 79.6-97.7 [facility] Comment on above: Performed By: #### C A, IPB, CHM7, MGO, HFP #### [facility] (DEFAULT) [address] [place] [address] 17839 Mean Cell Hgb 26.8 pg Normal 25.9-33.9 [facility] Comment on above: Performed By: #### C A, IPB, CHM7, MGO, HFP #### [facility] (DEFAULT) [address] [place] [address] 55341 Mean Cell Hgb Conc 32.1 g/dL Normal 31.4-35.9 [facility] Comment on above: Performed By: #### C A, IPB, CHM7, MGO, HFP #### [facility] (DEFAULT) [address] [place] [address] 27055 Platelet mean volume (Bld) [Entitic vol] 9.3 fL Normal 8.5-12.2 [facility] Comment on above: Performed By: #### C A, IPB, CHM7, MGO, HFP #### [facility] (DEFAULT) [address] [place] [address] 73676 Platelets (Bld) [#/Vol] 374 10*3/uL Normal 150-393 [facility] Comment on above: Performed By: #### C A, IPB, CHM7, MGO, HFP #### [facility] (DEFAULT) [address] [place] [address] 11748 RBC (Bld) [#/Vol] 3.65 10*6/uL Low 3.91-5.04 [facility] Comment on above: Performed By: #### C A, IPB, CHM7, MGO, HFP #### [facility] (DEFAULT) [address] [place] [address] 21395 RBC Distribution 13.0 % Normal 10.8-14.9 [facility] Comment on above: Performed By: #### C A, IPB, CHM7, MGO, HFP #### [facility] (DEFAULT) [address] [place] [address] WBC (Bld) [#/Vol] 6.07 10*3/uL Normal 3.99-11.19 [facility] Comment on above: Performed By: #### RODRIGO Rangel, MELVINMRenee, MGO, HFP #### [facility] (DEFAULT) [address] [place] [address] Erythrocyte distribution width (RBC) [Ratio] 13.0 % 10.8 - 14.9 % [facility] Hematocrit (Bld) [Volume fraction] 30.5 % Low 34.9 - 44.3 % [facility] Hemoglobin (Bld) [Mass/Vol] 9.8 g/dL Low 11.4 - 15.2 g/dL [facility] Interpretation and review of laboratory results Abnormal [facility] MCH (RBC) [Entitic mass] 26.8 pg 25.9 - 33.9 pg [facility] MCHC (RBC) [Mass/Vol] 32.1 g/dL 31.4 - 35.9 g/dL [facility] MCV (RBC) [Entitic vol] 83.6 fL 79.6 - 97.7 fL [facility] Platelet mean volume (Bld) [Entitic vol] 9.3 fL 8.5 - 12.2 fL [facility] Platelets (Bld) [#/Vol] 374 10*3/uL 150 - 393 K/uL [facility] RBC (Bld) [#/Vol] 3.65 10*6/uL Low [facility] WBC (Bld) [#/Vol] 6.07 10*3/uL 3.99 - 11. 19 K/uL [facility] CHEM 7 (LYTES,BUN,CREA,GLUC) on 05-28-2022 Anion gap [Moles/Vol] 11 mmol/L Normal 7-17 [facility] Comment on above: Performed By: #### C Danielle, RODRIGO, MELVINM7, MGO #### [facility] (DEFAULT) [address] [place] [address] 13437 Chloride [Moles/Vol] 106 mmol/L Normal 98-108 [facility] Comment on above: Performed By: #### RODRIGO Rangel CHM7, MGO #### [facility] (DEFAULT) [address] [place] [address] 30405 CO2 [Moles/Vol] 25 mmol/L Normal 21-31 [facility] Comment on above: Performed By: #### RODRIGO Rangel CHM7, MGO #### [facility] (DEFAULT) [address] [place] [address] 21490 Creatinine [Mass/Vol] 0.50 mg/dL Normal 0.50-1.20 [facility] Comment on above: Performed By: #### RODRIGO Rangel CHM7, MGO #### [facility] (DEFAULT) [address] [place] [address] 91228 eGFR, CKD-EPI, Female > Normal >=60 [facility] Comment on above: Result Comment: Repo rted eGFR is based on the CKD-EPI 2020 equation using creatinine, age, and sex. Performed By: #### RODRIGO Rangel CHM7, MGO #### [facility] (DEFAULT) [address] [place] [address] 35865 Glucose [Mass/Vol] 89 mg/dL Normal 70-99 [facility] Comment on above: Performed By: #### RODRIGO Rangel CHM7, MGO #### [facility] (DEFAULT) [address] [place] [address] 93284 Osmolality [Osmolality] 285 mosm/kg Normal 278-305 [facility] Comment on above: Performed By: #### RODRIGO Rangel CHM7, MGO #### [facility] (DEFAULT) [address] [place] [address] 72071 Potassium [Moles/Vol] 4.1 mmol/L Normal 3.5-5.0 [facility] Comment on above: Performed By: #### RODRIGO Rangel, MELVINM7, MGO #### [facility] (DEFAULT) [address] [place] [address] 75717 Sodium [Moles/Vol] 138 mmol/L Normal 135-145 [facility] Comment on above: Performed By: #### RODRIGO Rangel CHM7, MGO #### [facility] (DEFAULT) [address] [place] [address] Urea nitrogen [Mass/Vol] 3 mg/dL Low 7-25 [facility] Comment on above: Performed By: #### RODRIGO Rangel, MELVINM7, MGO #### [facility] (DEFAULT) [address] [place] [address] 33733 Urea nitrogen/Creatinine [Mass ratio] 6 mg/mg Normal [facility] Comment on above: Performed By: #### RODRIGO Rangel, MELVINM7, MGO #### [facility] (DEFAULT) [address] [place] [address] 18653 Anion gap [Moles/Vol] 11 mmol/L 7 - 17 mmol/L [facility] Chloride [Moles/Vol] 106 mmol/L 98 - 10 8 mmol/L [facility] CO2 [Moles/Vol] 25 mmol/L 21 - 31 mmol/L [facility] Creatinine [Mass/Vol] 0.50 mg/dL 0.50 - 1.20 mg/dL [facility] GFR/1.73 sq M.predicted CKD-EPI (S/P/Bld) [Vol rate/Area] - PINF [facility] Comment on above: Reported eGFR is bas ed on the CKD-EPI 2020 equation using creatinine, age, and sex. Glucose [Mass/Vol] 89 mg/dL 70 - 99 mg/dL [facility] Osmolality Calc [Osmolality] 285 [facility] Potassium [Moles/Vol] 4.1 mmol/L 3.5 - 5.0 mmol/L [facility] Sodium [Moles/Vol] 138 mmol/L 135 - 145 mmol/L [facility] Urea nitrogen [Mass/Vol] 3 mg/dL Low 7 - 25 mg/dL [facility] Urea nitrogen/Creatinine [Mass ratio] 6 mg/mg [facility] MAGNESIUMon 05-28-2022 Magnesium [Mass/Vol] 1.8 mg/dL Normal 1.6-2.6 [facility] Comment on above: Performed By: #### RODRIGO Rangel CHM7, MGO #### [facility] (DEFAULT) [address] [place] [address] Magnesium [Mass/Vol] 1.8 mg/dL 1.6 - 2 .6 mg/dL [facility] No Panel Informationon 05-28 Interpretation and review of laboratory results Abnormal [facility] Interpretation and review of laboratory results Normal [facility] PHOSPHATE, INORGANICon 05-28 Phosphorous 4.9 mg/dL High 2.2-4.6 [facility] Comment on above: Performed By: #### RODRIGO Rangel CHM7, MGO #### [facility] (DEFAULT) [address] [place] [address] 21657 Phosphate [Mass/Vol] 4.9 mg/dL High 2.2 - 4 .6 mg/dL [facility] CALCIUMon 05-27-2022 Calcium [Mass/Vol] 8.6 mg/dL Normal 8.6-10.5 [facility] Comment on above: Performed By: #### RODRIGO Rangel, MELVINM7, MGO #### [facility] (DEFAULT) [address] [place] [address] Calcium [Mass/Vol] 8.6 mg/dL 8.6 - 10. 5 mg/dL [facility] CBC,PLATELETSon 05-27-2022 Hematocrit (Bld) [Volume fraction] 31.1 % Low 34.9-44.3 [facility] Comment on above: Performed By: #### SHANEKA RangelB, CHM7, MGO #### [facility] (DEFAULT) [address] [place] [address] 86655 Hemoglobin (Bld) [Mass/Vol] 10.1 g/dL Low 11.4-15.2 [facility] Comment on above: Performed By: #### C A, IPB, CHM7, MGO #### [facility] (DEFAULT) [address] [place] [address] 15182 MCV (RBC) [Entitic vol] 83.8 fL Normal 79.6-97.7 [facility] Comment on above: Performed By: #### C A, IPB, CHM7, MGO #### [facility] (DEFAULT) [address] [place] [address] 06016 Mean Cell Hgb 27.2 pg Normal 25.9-33.9 [facility] Comment on above: Performed By: #### C A, IPB, CHM7, MGO #### [facility] (DEFAULT) [address] [place] [address] 07505 Mean Cell Hgb Conc 32.5 g/dL Normal 31.4-35.9 [facility] Comment on above: Performed By: #### C A, IPB, CHM7, MGO #### [facility] (DEFAULT) [address] [place] [address] 56639 Platelet mean volume (Bld) [Entitic vol] 9.2 fL Normal 8.5-12.2 [facility] Comment on above: Performed By: #### C A, IPB, CHM7, MGO #### [facility] (DEFAULT) [address] [place] [address] 31634 Platelets (Bld) [#/Vol] 344 10*3/uL Normal 150-393 [facility] Comment on above: Performed By: #### C A, IPB, CHM7, MGO #### [facility] (DEFAULT) [address] [place] [address] 18904 RBC (Bld) [#/Vol] 3.71 10*6/uL Low 3.91-5.04 [facility] Comment on above: Performed By: #### RODRIGO Rangel, MELVINMRenee, MGO #### [facility] (DEFAULT) [address] [place] [address] RBC Distribution 12.9 % Normal 10.8-14.9 [facility] Comment on above: Performed By: #### Dayday Santos, RODRIGO, MELVINMRenee, MGO #### [facility] (DEFAULT) [address] [place] [address] 38417 WBC (Bld) [#/Vol] 6.21 10*3/uL Normal 3.99-11.19 [facility] Comment on above: Performed By: #### RODRIGO Rangel, MELVINM7, MGO #### [facility] (DEFAULT) [address] [place] [address] 19367 Erythrocyte distribution width (RBC) [Ratio] 12.9 % 10.8 - 14.9 % [facility] Hematocrit (Bld) [Volume fraction] 31.1 % Low 34.9 - 44.3 % [facility] Hemoglobin (Bld) [Mass/Vol] 10.1 g/dL Low 11.4 - 15.2 g/dL [facility] Interpretation and review of laboratory results Abnormal [facility] MCH (RBC) [Entitic mass] 27.2 pg 25.9 - 33.9 pg [facility] MCHC (RBC) [Mass/Vol] 32.5 g/dL 31.4 - 35.9 g/dL [facility] MCV (RBC) [Entitic vol] 83.8 fL 79.6 - 97.7 fL [facility] Platelet mean volume (Bld) [Entitic vol] 9.2 fL 8.5 - 12.2 fL [facility] Platelets (Bld) [#/Vol] 344 10*3/uL 150 - 393 K/uL [facility] RBC (Bld) [#/Vol] 3.71 10*6/uL Low [facility] WBC (Bld) [#/Vol] 6.21 10*3/uL 3.99 - 11. 19 K/uL [facility] CHEM 7 (LYTES,BUN,CREA,GLUC) on 05-27-2022 Anion gap [Moles/Vol] 11 mmol/L Normal 7-17 [facility] Comment on above: Performed By: #### C A, IPB, CHM7, MGO #### [facility] (DEFAULT) [address] [place] [address] 52972 Chloride [Moles/Vol] 105 mmol/L Normal 98-108 [facility] Comment on above: Performed By: #### C A, IPB, CHM7, MGO #### [facility] (DEFAULT) [address] [place] [address] 85512 CO2 [Moles/Vol] 26 mmol/L Normal 21-31 [facility] Comment on above: Performed By: #### C A, IPB, CHM7, MGO #### [facility] (DEFAULT) [address] [place] [address] 06328 Creatinine [Mass/Vol] 0.49 mg/dL Low 0.50-1.20 [facility] Comment on above: Performed By: #### C A, IPB, CHM7, MGO #### [facility] (DEFAULT) [address] [place] [address] 64410 eGFR, CKD-EPI, Female > Normal >=60 [facility] Comment on above: Result Comment: Repo rted eGFR is based on the CKD-EPI 2020 equation using creatinine, age, and sex. Performed By: #### C A, IPB, CHM7, MGO #### [facility] (DEFAULT) [address] [place] [address] 39507 Glucose [Mass/Vol] 93 mg/dL Normal 70-99 [facility] Comment on above: Performed By: #### C A, IPB, CHM7, MGO #### [facility] (DEFAULT) [address] [place] [address] 69699 Osmolality [Osmolality] 285 mosm/kg Normal 278-305 [facility] Comment on above: Performed By: #### Dayday Santos, IPB, CHM7, MGO #### [facility] (DEFAULT) [address] [place] [address] 67125 Potassium [Moles/Vol] 4.0 mmol/L Normal 3.5-5.0 [facility] Comment on above: Performed By: #### Dayday Santos IPBrett, CHM7, MGO #### [facility] (DEFAULT) [address] [place] [address] 28673 Sodium [Moles/Vol] 138 mmol/L Normal 135-145 [facility] Comment on above: Performed By: #### RODRIGO Rangel, CHM7, MGO #### [facility] (DEFAULT) [address] [place] [address] 45133 Urea nitrogen [Mass/Vol] 3 mg/dL Low 7-25 [facility] Comment on above: Performed By: #### Dayday Santos IPB, CHM7, MGO #### [facility] (DEFAULT) [address] [place] [address] 19927 Urea nitrogen/Creatinine [Mass ratio] 6 mg/mg Normal [facility] Comment on above: Performed By: #### RODRIGO Rangel, CHM7, MGO #### [facility] (DEFAULT) [address] [place] [address] 89452 Anion gap [Moles/Vol] 11 mmol/L 7 - 17 mmol/L [facility] Chloride [Moles/Vol] 105 mmol/L 98 - 10 8 mmol/L [facility] CO2 [Moles/Vol] 26 mmol/L 21 - 31 mmol/L [facility] Creatinine [Mass/Vol] 0.49 mg/dL Low 0.50 - 1.20 mg/dL [facility] GFR/1.73 sq M.predicted CKD-EPI (S/P/Bld) [Vol rate/Area] - PINF [facility] Comment on above: Reported eGFR is bas ed on the CKD-EPI 2020 equation using creatinine, age, and sex. Glucose [Mass/Vol] 93 mg/dL 70 - 99 mg/dL [facility] Interpretation and review of laboratory results Abnormal [facility] Osmolality Calc [Osmolality] 285 [facility] Potassium [Moles/Vol] 4.0 mmol/L 3.5 - 5.0 mmol/L [facility] Sodium [Moles/Vol] 138 mmol/L 135 - 145 mmol/L [facility] Urea nitrogen [Mass/Vol] 3 mg/dL Low 7 - 25 mg/dL [facility] Urea nitrogen/Creatinine [Mass ratio] 6 mg/mg [facility] MAGNESIUMon 05-27-2022 Magnesium [Mass/Vol] 1.9 mg/dL Normal 1.6-2.6 [facility] Comment on above: Performed By: #### C Danielle, IPB, CHM7, MGO #### [facility] (DEFAULT) [address] [place] [address] 91360 Magnesium [Mass/Vol] 1.9 mg/dL 1.6 - 2 .6 mg/dL [facility] No Panel Informationon 05-27 Interpretation and review of laboratory results Normal [facility] PHOSPHATE, INORGANICon 05-27 Phosphorous 4.5 mg/dL Normal 2.2-4.6 [facility] Comment on above: Performed By: #### C A, IPB, CHM7, MGO #### [facility] (DEFAULT) [address] [place] [address] 85141 Phosphate [Mass/Vol] 4.5 mg/dL 2.2 - 4 .6 mg/dL [facility] CALCIUMon 05-26-2022 Calcium [Mass/Vol] 8.4 mg/dL Low 8.6-10.5 [facility] Comment on above: Performed By: #### C A, IPB, CHM7, MGO #### [facility] (DEFAULT) [address] [address] Calcium [Mass/Vol] 8.4 mg/dL Low 8.6 - 10. 5 mg/dL [facility] CBC,PLATELETSon 05-26-2022 Hematocrit (Bld) [Volume fraction] 31.5 % Low 34.9-44.3 [facility] Comment on above: Performed By: #### Y CHGRA #### [facility] (DEFAULT) [address] [place] [address] 93150 Hemoglobin (Bld) [Mass/Vol] 10.0 g/dL Low 11.4-15.2 [facility] Comment on above: Performed By: #### Y CHGRA #### [facility] (DEFAULT) [address] [address]375 MCV (RBC) [Entitic vol] 84.9 fL Normal 79.6-97.7 [facility] Comment on above: Performed By: #### Y CHGRA #### [facility] (DEFAULT) [address] 35294 Mean Cell Hgb 27.0 pg Normal 25.9-33.9 [facility] Comment on above: Performed By: #### Y CHGRA #### [facility] (DEFAULT) [address] 98675 Mean Cell Hgb Conc 31.7 g/dL Normal 31.4-35.9 [facility] Comment on above: Performed By: #### Y CHGRA #### [facility] (DEFAULT) [address] [address]93 Platelet mean volume (Bld) [Entitic vol] 9.7 fL Normal 8.5-12.2 [facility] Comment on above: Performed By: #### Y CHGRA #### [facility] (DEFAULT) [address] 47717 Platelets (Bld) [#/Vol] 327 10*3/uL Normal 150-393 [facility] Comment on above: Performed By: #### Y CHGRA #### [facility] (DEFAULT) [address] [place] [address] RBC (Bld) [#/Vol] 3.71 10*6/uL Low 3.91-5.04 [facility] Comment on above: Performed By: #### Y CHGRA #### [facility] (DEFAULT) [address] [place] [address] 00865 RBC Distribution 12.8 % Normal 10.8-14.9 [facility] Comment on above: Performed By: #### Y CHGRA #### [facility] (DEFAULT) [address] [place] [address] 68758 WBC (Bld) [#/Vol] 7.91 10*3/uL Normal 3.99-11.19 [facility] Comment on above: Performed By: #### Y CHGRA #### [facility] (DEFAULT) [address] [place] [address] 04673 Erythrocyte distribution width (RBC) [Ratio] 12.8 % 10.8 - 14.9 % [facility] Hematocrit (Bld) [Volume fraction] 31.5 % Low 34.9 - 44.3 % [facility] Hemoglobin (Bld) [Mass/Vol] 10.0 g/dL Low 11.4 - 15.2 g/dL [facility] Interpretation and review of laboratory results Abnormal [facility] MCH (RBC) [Entitic mass] 27.0 pg 25.9 - 33.9 pg [facility] MCHC (RBC) [Mass/Vol] 31.7 g/dL 31.4 - 35.9 g/dL [facility] MCV (RBC) [Entitic vol] 84.9 fL 79.6 - 97.7 fL [facility] Platelet mean volume (Bld) [Entitic vol] 9.7 fL 8.5 - 12.2 fL [facility] Platelets (Bld) [#/Vol] 327 10*3/uL 150 - 393 K/uL [facility] RBC (Bld) [#/Vol] 3.71 10*6/uL Low [facility] WBC (Bld) [#/Vol] 7.91 10*3/uL 3.99 - 11. 19 K/uL [facility] CHEM 7 (LYTES,BUN,CREA,GLUC) on 05-26-2022 Anion gap [Moles/Vol] 13 mmol/L Normal 7-17 [facility] Comment on above: Performed By: #### Y CHGRA #### [facility] (DEFAULT) [address] [address] Chloride [Moles/Vol] 102 mmol/L Normal 98-108 [facility] Comment on above: Performed By: #### Y CHGRA #### [facility] (DEFAULT) [address] [address]397 CO2 [Moles/Vol] 23 mmol/L Normal 21-31 [facility] Comment on above: Performed By: #### Y CHGRA #### [facility] (DEFAULT) [address] 31147 Creatinine [Mass/Vol] 0.48 mg/dL Low 0.50-1.20 [facility] Comment on above: Performed By: #### Y CHGRA #### [facility] (DEFAULT) [address] 6[address]95 eGFR, CKD-EPI, Female > Normal >=60 [facility] Comment on above: Result Comment: Repo rted eGFR is based on the CKD-EPI 2020 equation using creatinine, age, and sex. Performed By: #### Y CHGRA #### [facility] (DEFAULT) [address] [address]176 Glucose [Mass/Vol] 154 mg/dL High 70-99 [facility] Comment on above: Performed By: #### Y CHGRA #### [facility] (DEFAULT) [address] [place] [address] 13223 Osmolality [Osmolality] 282 mosm/kg Normal 278-305 [facility] Comment on above: Performed By: #### Y CHGRA #### [facility] (DEFAULT) [address] [place] [address] 74874 Potassium [Moles/Vol] 4.1 mmol/L Normal 3.5-5.0 [facility] Comment on above: Performed By: #### Y CHGRA #### [facility] (DEFAULT) [address] [place] [address] 14580 Sodium [Moles/Vol] 134 mmol/L Low 135-145 [facility] Comment on above: Performed By: #### Y CHGRA #### [facility] (DEFAULT) [address] [place] [address] 73228 Urea nitrogen [Mass/Vol] 3 mg/dL Low 7-25 [facility] Comment on above: Performed By: #### Y CHGRA #### [facility] (DEFAULT) [address] [place] [address] 82043 Urea nitrogen/Creatinine [Mass ratio] 6 mg/mg Normal [facility] Comment on above: Performed By: #### Y CHGRA #### [facility] (DEFAULT) [address] [place] [address] 86009 Anion gap [Moles/Vol] 13 mmol/L 7 - 17 mmol/L [facility] Chloride [Moles/Vol] 102 mmol/L 98 - 10 8 mmol/L [facility] CO2 [Moles/Vol] 23 mmol/L 21 - 31 mmol/L [facility] Creatinine [Mass/Vol] 0.48 mg/dL Low 0.50 - 1.20 mg/dL [facility] GFR/1.73 sq M.predicted CKD-EPI (S/P/Bld) [Vol rate/Area] - PINF [facility] Comment on above: Reported eGFR is bas ed on the CKD-EPI 2020 equation using creatinine, age, and sex. Glucose [Mass/Vol] 154 mg/dL High 70 - 99 mg/dL [facility] Osmolality Calc [Osmolality] 282 [facility] Potassium [Moles/Vol] 4.1 mmol/L 3.5 - 5.0 mmol/L [facility] Sodium [Moles/Vol] 134 mmol/L Low 135 - 145 mmol/L [facility] Urea nitrogen [Mass/Vol] 3 mg/dL Low 7 - 25 mg/dL [facility] Urea nitrogen/Creatinine [Mass ratio] 6 mg/mg [facility] MAGNESIUMon 05-26-2022 Magnesium [Mass/Vol] 1.8 mg/dL Normal 1.6-2.6 [facility] Comment on above: Performed By: #### Y MU #### [facility] (DEFAULT) [address] [place] [address] 96397 Magnesium [Mass/Vol] 1.8 mg/dL 1.6 - 2 .6 mg/dL [facility] No Panel Informationon 05-26 Interpretation and review of laboratory results Abnormal [facility] Interpretation and review of laboratory results Normal [facility] PHOSPHATE, INORGANICon 05-26 Phosphorous 3.4 mg/dL Normal 2.2-4.6 [facility] Comment on above: Performed By: #### Y CHGRA #### [facility] (DEFAULT) [address] [place] [address] 49774 Phosphate [Mass/Vol] 3.4 mg/dL 2.2 - 4 .6 mg/dL [facility] CALCIUMon 05-25-2022 Calcium [Mass/Vol] 8.5 mg/dL Low 8.6 - 10. 5 mg/dL [facility] Calcium [Mass/Vol] 8.5 mg/dL Low 8.6-10.5 [facility] Comment on above: Performed By: #### C A, IPBrett, CHM7, MGO #### [facility] (DEFAULT) [address] [place] [address] 00673 CBC,PLATELETSon 05-25-2022 Hematocrit (Bld) [Volume fraction] 31.7 % Low 34.9-44.3 [facility] Comment on above: Performed By: #### C A, IPB, CHM7, MGO #### [facility] (DEFAULT) [address] [place] [address] 17441 Hemoglobin (Bld) [Mass/Vol] 9.8 g/dL Low 11.4-15.2 [facility] Comment on above: Performed By: #### C A, IPB, CHM7, MGO #### [facility] (DEFAULT) [address] [place] [address] 82027 MCV (RBC) [Entitic vol] 85.9 fL Normal 79.6-97.7 [facility] Comment on above: Performed By: #### C A, IPB, CHM7, MGO #### [facility] (DEFAULT) [address] [place] [address] 85988 Mean Cell Hgb 26.6 pg Normal 25.9-33.9 [facility] Comment on above: Performed By: #### C A, IPB, CHM7, MGO #### [facility] (DEFAULT) [address] [place] [address] 56362 Mean Cell Hgb Conc 30.9 g/dL Low 31.4-35.9 [facility] Comment on above: Performed By: #### C A, IPB, CHM7, MGO #### [facility] (DEFAULT) [address] [place] [address] 96735 Platelet mean volume (Bld) [Entitic vol] 9.7 fL Normal 8.5-12.2 [facility] Comment on above: Performed By: #### C A, IPB, CHM7, MGO #### [facility] (DEFAULT) [address] [place] [address] 86823 Platelets (Bld) [#/Vol] 292 10*3/uL Normal 150-393 [facility] Comment on above: Performed By: #### Dayday Santos, RODRIGO, CHM7, MGO #### [facility] (DEFAULT) [address] [place] [address] 13175 RBC (Bld) [#/Vol] 3.69 10*6/uL Low 3.91-5.04 [facility] Comment on above: Performed By: #### Dayday Santos, RODRIGO, CHM7, MGO #### [facility] (DEFAULT) [address] [place] [address] 55578 RBC Distribution 12.8 % Normal 10.8-14.9 [facility] Comment on above: Performed By: #### Dayday Santos, RODRIGO, CHM7, MGO #### [facility] (DEFAULT) [address] [place] [address] 93873 WBC (Bld) [#/Vol] 9.85 10*3/uL Normal 3.99-11.19 [facility] Comment on above: Performed By: #### Dayday Santos, RODRIGO, CHM7, MGO #### [facility] (DEFAULT) [address] [place] [address] 76701 Erythrocyte distribution width (RBC) [Ratio] 12.8 % 10.8 - 14.9 % [facility] Hematocrit (Bld) [Volume fraction] 31.7 % Low 34.9 - 44.3 % [facility] Hemoglobin (Bld) [Mass/Vol] 9.8 g/dL Low 11.4 - 15.2 g/dL [facility] Interpretation and review of laboratory results Abnormal [facility] MCH (RBC) [Entitic mass] 26.6 pg 25.9 - 33.9 pg [facility] MCHC (RBC) [Mass/Vol] 30.9 g/dL Low 31.4 - 35.9 g/dL [facility] MCV (RBC) [Entitic vol] 85.9 fL 79.6 - 97.7 fL [facility] Platelet mean volume (Bld) [Entitic vol] 9.7 fL 8.5 - 12.2 fL [facility] Platelets (Bld) [#/Vol] 292 10*3/uL 150 - 393 K/uL [facility] RBC (Bld) [#/Vol] 3.69 10*6/uL Low [facility] WBC (Bld) [#/Vol] 9.85 10*3/uL 3.99 - 11. 19 K/uL [facility] CHEM 7 (LYTES,BUN,CREA,GLUC) on 05-25-2022 Anion gap [Moles/Vol] 13 mmol/L 7 - 17 mmol/L [facility] Chloride [Moles/Vol] 104 mmol/L 98 - 10 8 mmol/L [facility] CO2 [Moles/Vol] 24 mmol/L 21 - 31 mmol/L [facility] Creatinine [Mass/Vol] 0.51 mg/dL 0.50 - 1.20 mg/dL [facility] GFR/1.73 sq M.predicted CKD-EPI (S/P/Bld) [Vol rate/Area] - [facility] Comment on above: Reported eGFR is bas ed on the CKD-EPI 2020 equation using creatinine, age, and sex. Glucose [Mass/Vol] 98 mg/dL 70 - 99 mg/dL [facility] Osmolality Calc [Osmolality] 283 [facility] Potassium [Moles/Vol] 4.0 mmol/L 3.5 - 5.0 mmol/L [facility] Sodium [Moles/Vol] 137 mmol/L 135 - 145 mmol/L [facility] Urea nitrogen [Mass/Vol] 2 mg/dL Low 7 - 25 mg/dL [facility] Urea nitrogen/Creatinine [Mass ratio] 4 mg/mg [facility] Anion gap [Moles/Vol] 13 mmol/L Normal 7-17 [facility] Comment on above: Performed By: #### C A, IPBrett, CHM7, MGO #### [facility] (DEFAULT) [address] [place] [address] 20781 Chloride [Moles/Vol] 104 mmol/L Normal 98-108 [facility] Comment on above: Performed By: #### RODRIGO Rangel CHM7, MGO #### [facility] (DEFAULT) [address] [place] [address] 11709 CO2 [Moles/Vol] 24 mmol/L Normal 21-31 [facility] Comment on above: Performed By: #### RODRIGO Rangel, MELVINMRenee, MGO #### [facility] (DEFAULT) [address] [place] [address] 48350 Creatinine [Mass/Vol] 0.51 mg/dL Normal 0.50-1.20 [facility] Comment on above: Performed By: #### RODRIGO Rangel CHM7, MGO #### [facility] (DEFAULT) [address] [place] [address] 63384 eGFR, CKD-EPI, Female > Normal >=60 [facility] Comment on above: Result Comment: Repo rted eGFR is based on the CKD-EPI 2020 equation using creatinine, age, and sex. Performed By: #### RODRIGO Rangel CHM7, MGO #### [facility] (DEFAULT) [address] [place] [address] 13284 Glucose [Mass/Vol] 98 mg/dL Normal 70-99 [facility] Comment on above: Performed By: #### RODRIGO Rangel CHM7, MGO #### [facility] (DEFAULT) [address] [place] [address] 19608 Osmolality [Osmolality] 283 mosm/kg Normal 278-305 [facility] Comment on above: Performed By: #### RODRIGO Rangel CHM7, MGO #### [facility] (DEFAULT) [address] [place] [address] 99237 Potassium [Moles/Vol] 4.0 mmol/L Normal 3.5-5.0 [facility] Comment on above: Performed By: #### RODRIGO Rangel, CHM7, MGO #### [facility] (DEFAULT) [address] [place] [address] 69341 Sodium [Moles/Vol] 137 mmol/L Normal 135-145 [facility] Comment on above: Performed By: #### Dayday Santos IPBrett, CHM7, MGO #### [facility] (DEFAULT) [address] [place] [address] 13645 Urea nitrogen [Mass/Vol] 2 mg/dL Low 7-25 [facility] Comment on above: Performed By: #### RODRIGO Rangel, CHM7, MGO #### [facility] (DEFAULT) [address] [place] [address] 38040 Urea nitrogen/Creatinine [Mass ratio] 4 mg/mg Normal [facility] Comment on above: Performed By: #### RODRIGO Rangel, CHM7, MGO #### [facility] (DEFAULT) [address] [place] [address] 71385 MAGNESIUMon 05-25-2022 Magnesium [Mass/Vol] 1.8 mg/dL 1.6 - 2 .6 mg/dL [facility] Magnesium [Mass/Vol] 1.8 mg/dL Normal 1.6-2.6 [facility] Comment on above: Performed By: #### RODRIGO Rangel, MELVINM7, MGO #### [facility] (DEFAULT) [address] [place] [address] 02525 No Panel Informationon 05-25 Interpretation and review of laboratory results Abnormal [facility] Interpretation and review of laboratory results Normal [facility] PHOSPHATE, INORGANICon 05-25 Phosphate [Mass/Vol] 3.2 mg/dL 2.2 - 4 .6 mg/dL [facility] Phosphorous 3.2 mg/dL Normal 2.2-4.6 [facility] Comment on above: Performed By: #### SHANEKA RangelB, CHM7, MGO #### [facility] (DEFAULT) [address] [place] [address] 59023 CALCIUMon 05-24-2022 Calcium [Mass/Vol] 7.9 mg/dL Low 8.6-10.5 [facility] Comment on above: Performed By: #### C A, IPB, CHM7, MGO, HFP #### [facility] (DEFAULT) [address] [place] [address] 54535 Calcium [Mass/Vol] 7.9 mg/dL Low 8.6 - 10. 5 mg/dL [facility] CBC,PLATELETSon 05-24-2022 Hematocrit (Bld) [Volume fraction] 33.0 % Low 34.9-44.3 [facility] Comment on above: Performed By: #### Y CHGRA #### [facility] (DEFAULT) [address] [place] [address] 53721 Hemoglobin (Bld) [Mass/Vol] 10.4 g/dL Low 11.4-15.2 [facility] Comment on above: Performed By: #### Y CHGRA #### [facility] (DEFAULT) [address] [place] [address] 13229 MCV (RBC) [Entitic vol] 86.2 fL Normal 79.6-97.7 [facility] Comment on above: Performed By: #### Y CHGRA #### [facility] (DEFAULT) [address] [place] [address] 06455 Mean Cell Hgb 27.2 pg Normal 25.9-33.9 [facility] Comment on above: Performed By: #### Y CHGRA #### [facility] (DEFAULT) [address] [place] [address] 76096 Mean Cell Hgb Conc 31.5 g/dL Normal 31.4-35.9 [facility] Comment on above: Performed By: #### Y CHGRA #### [facility] (DEFAULT) [address] [place] [address] 23092 Platelet mean volume (Bld) [Entitic vol] 9.7 fL Normal 8.5-12.2 [facility] Comment on above: Performed By: #### Y CHGRA #### [facility] (DEFAULT) [address] [place] [address] 37660 Platelets (Bld) [#/Vol] 270 10*3/uL Normal 150-393 [facility] Comment on above: Performed By: #### Y CHGRA #### [facility] (DEFAULT) [address] [place] [address] 11238 RBC (Bld) [#/Vol] 3.83 10*6/uL Low 3.91-5.04 [facility] Comment on above: Performed By: #### Y CHGRA #### [facility] (DEFAULT) [address] [place] [address] 02637 RBC Distribution 13.2 % Normal 10.8-14.9 [facility] Comment on above: Performed By: #### Y CHGRA #### [facility] (DEFAULT) [address] [place] [address] 10483 WBC (Bld) [#/Vol] 13.10 10*3/uL High 3.99-11.19 [facility] Comment on above: Performed By: #### Y CHGRA #### [facility] (DEFAULT) [address] [place] [address] 83926 Erythrocyte distribution width (RBC) [Ratio] 13.2 % 10.8 - 14.9 % [facility] Hematocrit (Bld) [Volume fraction] 33.0 % Low 34.9 - 44.3 % [facility] Hemoglobin (Bld) [Mass/Vol] 10.4 g/dL Low 11.4 - 15.2 g/dL [facility] Interpretation and review of laboratory results Abnormal [facility] MCH (RBC) [Entitic mass] 27.2 pg 25.9 - 33.9 pg [facility] MCHC (RBC) [Mass/Vol] 31.5 g/dL 31.4 - 35.9 g/dL [facility] MCV (RBC) [Entitic vol] 86.2 fL 79.6 - 97.7 fL [facility] Platelet mean volume (Bld) [Entitic vol] 9.7 fL 8.5 - 12.2 fL [facility] Platelets (Bld) [#/Vol] 270 10*3/uL 150 - 393 K/uL [facility] RBC (Bld) [#/Vol] 3.83 10*6/uL Low [facility] WBC (Bld) [#/Vol] 13.10 10*3/uL High 3.99 - 11 .19 K/uL [facility] CHEM 7 (LYTES,BUN,CREA,GLUC) on 05-24-2022 Anion gap [Moles/Vol] 10 mmol/L Normal 7-17 [facility] Comment on above: Performed By: #### C A, IPB, CHM7, MGO, HFP #### [facility] (DEFAULT) [address] [place] [address] 97558 Chloride [Moles/Vol] 105 mmol/L Normal 98-108 [facility] Comment on above: Performed By: #### C A, IPB, CHM7, MGO, HFP #### [facility] (DEFAULT) [address] [place] [address] 42891 CO2 [Moles/Vol] 24 mmol/L Normal 21-31 [facility] Comment on above: Performed By: #### C A, IPB, CHM7, MGO, HFP #### [facility] (DEFAULT) [address] [place] [address] 24503 Creatinine [Mass/Vol] 0.51 mg/dL Normal 0.50-1.20 [facility] Comment on above: Performed By: #### C A, IPB, CHM7, MGO, HFP #### [facility] (DEFAULT) [address] [place] [address] 24790 eGFR, CKD-EPI, Female > Normal >=60 [facility] Comment on above: Result Comment: Repo rted eGFR is based on the CKD-EPI 2020 equation using creatinine, age, and sex. Performed By: #### C Danielle, IPB, CHM7, MGO, HFP #### [facility] (DEFAULT) [address] [place] [address] 54366 Glucose [Mass/Vol] 121 mg/dL High 70-99 [facility] Comment on above: Performed By: #### C A, IPB, CHM7, MGO, HFP #### [facility] (DEFAULT) [address] [place] [address] 97440 Osmolality [Osmolality] 281 mosm/kg Normal 278-305 [facility] Comment on above: Performed By: #### C A, IPB, CHM7, MGO, HFP #### [facility] (DEFAULT) [address] [place] [address] 36723 Potassium [Moles/Vol] 4.1 mmol/L Normal 3.5-5.0 [facility] Comment on above: Performed By: #### C Danielle, IPB, CHM7, MGO, HFP #### [facility] (DEFAULT) [address] [place] [address] 61822 Sodium [Moles/Vol] 135 mmol/L Normal 135-145 [facility] Comment on above: Performed By: #### C A, IPB, CHM7, MGO, HFP #### [facility] (DEFAULT) [address] [place] [address] 17589 Urea nitrogen [Mass/Vol] 2 mg/dL Low 7-25 [facility] Comment on above: Performed By: #### C A, IPB, CHM7, MGO, HFP #### [facility] (DEFAULT) [address] [place] [address] 36608 Urea nitrogen/Creatinine [Mass ratio] 4 mg/mg Normal [facility] Comment on above: Performed By: #### C A, IPB, CHM7, MGO, HFP #### [facility] (DEFAULT) [address] [place] [id number] Anion gap [Moles/Vol] 10 mmol/L 7 - 17 mmol/L [facility] Chloride [Moles/Vol] 105 mmol/L 98 - 10 8 mmol/L [facility] CO2 [Moles/Vol] 24 mmol/L 21 - 31 mmol/L [facility] Creatinine [Mass/Vol] 0.51 mg/dL 0.50 - 1.20 mg/dL [facility] GFR/1.73 sq M.predicted CKD-EPI (S/P/Bld) [Vol rate/Area] - PINF [facility] Comment on above: Reported eGFR is bas ed on the CKD-EPI 2020 equation using creatinine, age, and sex. Glucose [Mass/Vol] 121 mg/dL High 70 - 99 mg/dL [facility] Osmolality Calc [Osmolality] 281 [facility] Potassium [Moles/Vol] 4.1 mmol/L 3.5 - 5.0 mmol/L [facility] Sodium [Moles/Vol] 135 mmol/L 135 - 145 mmol/L [facility] Urea nitrogen [Mass/Vol] 2 mg/dL Low 7 - 25 mg/dL [facility] Urea nitrogen/Creatinine [Mass ratio] 4 mg/mg [facility] MAGNESIUMon 05-24-2022 Magnesium [Mass/Vol] 1.7 mg/dL Normal 1.6-2.6 [facility] Comment on above: Performed By: #### C Danielle, RODRIGO, CHARLIE7, MGO, HFP #### [facility] (DEFAULT) [address] [place] [address] Interpretation and review of laboratory results Normal [facility] Magnesium [Mass/Vol] 1.7 mg/dL 1.6 - 2 .6 mg/dL [facility] No Panel Informationon 05-24 Interpretation and review of laboratory results Abnormal [facility] PHOSPHATE, INORGANICon 05-24 Phosphorous 2.1 mg/dL Low 2.2-4.6 [facility] Comment on above: Performed By: #### C Danielle, RODRIGO, CHM7, MGO, HFP #### [facility] (DEFAULT) [address] [place] [address] 86663 Phosphate [Mass/Vol] 2.1 mg/dL Low 2.2 - 4 .6 mg/dL [facility] CALCIUMon 05-23-2022 Calcium [Mass/Vol] 8.0 mg/dL Low 8.6-10.5 [facility] Comment on above: Performed By: #### C Danielle, RODRIGO, MELVINMRenee, MGO #### [facility] (DEFAULT) [address] [place] [address] 53741 Calcium [Mass/Vol] 8.0 mg/dL Low 8.6 - 10. 5 mg/dL [facility] Interpretation and review of laboratory results Abnormal [facility] CBC,PLATELETSon 05-23-2022 Hematocrit (Bld) [Volume fraction] 38.4 % Normal 34.9-44.3 [facility] Comment on above: Performed By: #### Y CHGRA #### [facility] (DEFAULT) [address] [place] [address] 26533 Hemoglobin (Bld) [Mass/Vol] 12.3 g/dL Normal 11.4-15.2 [facility] Comment on above: Performed By: #### Y CHGRA #### [facility] (DEFAULT) [address] [place] [address] 73189 MCV (RBC) [Entitic vol] 83.7 fL Normal 79.6-97.7 [facility] Comment on above: Performed By: #### Y CHGRA #### [facility] (DEFAULT) [address] [place] [address] 57216 Mean Cell Hgb 26.8 pg Normal 25.9-33.9 [facility] Comment on above: Performed By: #### Y CHGRA #### [facility] (DEFAULT) [address] [place] [address] 92333 Mean Cell Hgb Conc 32.0 g/dL Normal 31.4-35.9 [facility] Comment on above: Performed By: #### Y CHGRA #### [facility] (DEFAULT) [address] [place] [address] 70940 Platelet mean volume (Bld) [Entitic vol] 9.6 fL Normal 8.5-12.2 [facility] Comment on above: Performed By: #### Y CHGRA #### [facility] (DEFAULT) [address] [place] [address] 53597 Platelets (Bld) [#/Vol] 354 10*3/uL Normal 150-393 [facility] Comment on above: Performed By: #### Y CHGRA #### [facility] (DEFAULT) [address] [place] [address] 43860 RBC (Bld) [#/Vol] 4.59 10*6/uL Normal 3.91-5.04 [facility] Comment on above: Performed By: #### Y CHGRA #### [facility] (DEFAULT) [address] [place] [address] 18558 RBC Distribution 13.0 % Normal 10.8-14.9 [facility] Comment on above: Performed By: #### Y CHGRA #### [facility] (DEFAULT) [address] [place] [address] 47304 WBC (Bld) [#/Vol] 12.80 10*3/uL High 3.99-11.19 [facility] Comment on above: Performed By: #### Y CHGRA #### [facility] (DEFAULT) [address] [place] [address] 47666 Erythrocyte distribution width (RBC) [Ratio] 13.0 % 10.8 - 14.9 % [facility] Hematocrit (Bld) [Volume fraction] 38.4 % 34.9 - 44.3 % [facility] Hemoglobin (Bld) [Mass/Vol] 12.3 g/dL 11.4 - 15.2 g/dL [facility] Interpretation and review of laboratory results Abnormal [facility] MCH (RBC) [Entitic mass] 26.8 pg 25.9 - 33.9 pg [facility] MCHC (RBC) [Mass/Vol] 32.0 g/dL 31.4 - 35.9 g/dL [facility] MCV (RBC) [Entitic vol] 83.7 fL 79.6 - 97.7 fL [facility] Platelet mean volume (Bld) [Entitic vol] 9.6 fL 8.5 - 12.2 fL [facility] Platelets (Bld) [#/Vol] 354 10*3/uL 150 - 393 K/uL [facility] RBC (Bld) [#/Vol] 4.59 10*6/uL [facility] WBC (Bld) [#/Vol] 12.80 10*3/uL High 3.99 - 11 .19 K/uL [facility] CHEM 7 (LYTES,BUN,CREA,GLUC) on 05-23-2022 Anion gap [Moles/Vol] 13 mmol/L Normal 7-17 [facility] Comment on above: Performed By: #### C A, IPB, CHM7, MGO #### [facility] (DEFAULT) [address] [place] [address] Chloride [Moles/Vol] 103 mmol/L Normal 98-108 [facility] Comment on above: Performed By: #### C A, IPB, CHM7, MGO #### [facility] (DEFAULT) [address] [place] [address] CO2 [Moles/Vol] 24 mmol/L Normal 21-31 [facility] Comment on above: Performed By: #### C A, IPB, CHM7, MGO #### [facility] (DEFAULT) [address] [place] [address] Creatinine [Mass/Vol] 0.68 mg/dL Normal 0.50-1.20 [facility] Comment on above: Performed By: #### C Danielle, IPB, CHM7, MGO #### [facility] (DEFAULT) [address] [place] [address] 18503 eGFR, CKD-EPI, Female > Normal >=60 [facility] Comment on above: Result Comment: Repo rted eGFR is based on the CKD-EPI 2020 equation using creatinine, age, and sex. Performed By: #### C A, IPB, CHM7, MGO #### [facility] (DEFAULT) [address] [place] [address] 59145 Glucose [Mass/Vol] 148 mg/dL High 70-99 [facility] Comment on above: Performed By: #### Dayday A, IPB, CHM7, MGO #### [facility] (DEFAULT) [address] [place] [address] 80442 Osmolality [Osmolality] 285 mosm/kg Normal 278-305 [facility] Comment on above: Performed By: #### Dayday Santos, IPB, CHM7, MGO #### [facility] (DEFAULT) [address] [place] [address] 35339 Potassium [Moles/Vol] 4.9 mmol/L Normal 3.5-5.0 [facility] Comment on above: Performed By: #### Dayday A, IPB, CHM7, MGO #### [facility] (DEFAULT) [address] [place] [address] 20707 Sodium [Moles/Vol] 135 mmol/L Normal 135-145 [facility] Comment on above: Performed By: #### C A, IPB, CHM7, MGO #### [facility] (DEFAULT) [address] [place] [address] 87124 Urea nitrogen [Mass/Vol] 4 mg/dL Low 7-25 [facility] Comment on above: Performed By: #### Dayday A, IPB, CHM7, MGO #### [facility] (DEFAULT) [address] [place] [address] Urea nitrogen/Creatinine [Mass ratio] 6 mg/mg Normal [facility] Comment on above: Performed By: #### RODRIGO Rangel CHM7, MGO #### [facility] (DEFAULT) [address] [place] [address] CHEM 7 (LYTES,BUN,CREA,GLUC) Ordered By: Shraddha Munguia on 05-23-2022 Anion gap [Moles/Vol] 13 mmol/L 7 - 17 mmol/L [facility] Chloride [Moles/Vol] 103 mmol/L 98 - 10 8 mmol/L [facility] CO2 [Moles/Vol] 24 mmol/L 21 - 31 mmol/L [facility] Creatinine [Mass/Vol] 0.68 mg/dL 0.50 - 1.20 mg/dL [facility] GFR/1.73 sq M.predicted CKD-EPI (S/P/Bld) [Vol rate/Area] - PINF [facility] Comment on above: Reported eGFR is bas ed on the CKD-EPI 2020 equation using creatinine, age, and sex. Glucose [Mass/Vol] 148 mg/dL High 70 - 99 mg/dL [facility] Interpretation and review of laboratory results Abnormal [facility] Osmolality Calc [Osmolality] 285 [facility] Potassium [Moles/Vol] 4.9 mmol/L 3.5 - 5.0 mmol/L [facility] Sodium [Moles/Vol] 135 mmol/L 135 - 145 mmol/L [facility] Urea nitrogen [Mass/Vol] 4 mg/dL Low 7 - 25 mg/dL [facility] Urea nitrogen/Creatinine [Mass ratio] 6 mg/mg [facility] MAGNESIUMon 05-23-2022 Magnesium [Mass/Vol] 2.5 mg/dL Normal 1.6-2.6 [facility] Comment on above: Performed By: #### C RODRIGO Santos, HUBERT, MGO #### [facility] (DEFAULT) [address] [place] [address] 19683 Magnesium [Mass/Vol] 2.5 mg/dL 1.6 - 2 .6 mg/dL [facility] No Panel Informationon 05-23 Interpretation and review of laboratory results Normal [facility] PHOSPHATE, INORGANICon 05-23 Phosphorous 2.7 mg/dL Normal 2.2-4.6 [facility] Comment on above: Performed By: #### C A, IPB, CHM7, MGO #### [facility] (DEFAULT) [address] [place] [address] 50809 Phosphate [Mass/Vol] 2.7 mg/dL 2.2 - 4 .6 mg/dL [facility] BETA HCG, URINE (POC DEVICE) on 05-22-2022 Beta HCG ( test) Ql (U) Negative Negative [facility] Interpretation and review of laboratory results Normal [facility] Test performed at address of the patient encounter. [facility] CALCIUMon 05-22-2022 Calcium [Mass/Vol] 7.8 mg/dL Low 8.6-10.5 [facility] Comment on above: Performed By: #### C A, IPB, CHM7, MGO, HFP #### [facility] (DEFAULT) [address] [place] [address] 40287 Calcium [Mass/Vol] 7.8 mg/dL Low 8.6 - 10. 5 mg/dL [facility] CBC,PLATELETSon 05-22-2022 Hematocrit (Bld) [Volume fraction] 37.0 % Normal 34.9-44.3 [facility] Comment on above: Performed By: #### Y CHGRA #### [facility] (DEFAULT) [address] [place] [address] 09543 Hemoglobin (Bld) [Mass/Vol] 12.0 g/dL Normal 11.4-15.2 [facility] Comment on above: Performed By: #### Y CHGRA #### [facility] (DEFAULT) [address] [place] [address] 68246 MCV (RBC) [Entitic vol] 81.0 fL Normal 79.6-97.7 [facility] Comment on above: Performed By: #### Y CHGRA #### [facility] (DEFAULT) [address] [place] [address] 73737 Mean Cell Hgb 26.3 pg Normal 25.9-33.9 [facility] Comment on above: Performed By: #### Y CHGRA #### [facility] (DEFAULT) [address] [address] Mean Cell Hgb Conc 32.4 g/dL Normal 31.4-35.9 [facility] Comment on above: Performed By: #### Y CHGRA #### [facility] (DEFAULT) [address] [place] [address] 35166 Platelet mean volume (Bld) [Entitic vol] 9.5 fL Normal 8.5-12.2 [facility] Comment on above: Performed By: #### Y CHGRA #### [facility] (DEFAULT) [address] [place] [address] 31831 Platelets (Bld) [#/Vol] 350 10*3/uL Normal 150-393 [facility] Comment on above: Performed By: #### Y CHGRA #### [facility] (DEFAULT) [address] [place] [address] 47958 RBC (Bld) [#/Vol] 4.57 10*6/uL Normal 3.91-5.04 [facility] Comment on above: Performed By: #### Y CHGRA #### [facility] (DEFAULT) [address] [place] [address] 82148 RBC Distribution 12.7 % Normal 10.8-14.9 [facility] Comment on above: Performed By: #### Y CHGRA #### [facility] (DEFAULT) [address] [place] [address] 86302 WBC (Bld) [#/Vol] 17.70 10*3/uL High 3.99-11.19 [facility] Comment on above: Performed By: #### Y CHGRA #### [facility] (DEFAULT) [address] [place] [address] 71357 Erythrocyte distribution width (RBC) [Ratio] 12.7 % 10.8 - 14.9 % [facility] Hematocrit (Bld) [Volume fraction] 37.0 % 34.9 - 44.3 % [facility] Hemoglobin (Bld) [Mass/Vol] 12.0 g/dL 11.4 - 15.2 g/dL [facility] Interpretation and review of laboratory results Abnormal [facility] MCH (RBC) [Entitic mass] 26.3 pg 25.9 - 33.9 pg [facility] MCHC (RBC) [Mass/Vol] 32.4 g/dL 31.4 - 35.9 g/dL [facility] MCV (RBC) [Entitic vol] 81.0 fL 79.6 - 97.7 fL [facility] Platelet mean volume (Bld) [Entitic vol] 9.5 fL 8.5 - 12.2 fL [facility] Platelets (Bld) [#/Vol] 350 10*3/uL 150 - 393 K/uL [facility] RBC (Bld) [#/Vol] 4.57 10*6/uL [facility] WBC (Bld) [#/Vol] 17.70 10*3/uL High 3.99 - 11 .19 K/uL [facility] CHEM 7 (LYTES,BUN,CREA,GLUC) on 05-22-2022 Anion gap [Moles/Vol] 16 mmol/L Normal 7-17 [facility] Comment on above: Performed By: #### C A, IPB, CHM7, MGO, HFP #### [facility] (DEFAULT) [address] [place] [address] 63724 Chloride [Moles/Vol] 103 mmol/L Normal 98-108 [facility] Comment on above: Performed By: #### RODRIGO Rangel CHMRenee, MGO, HFP #### [facility] (DEFAULT) [address] [place] [address] 15320 CO2 [Moles/Vol] 21 mmol/L Normal 21-31 [facility] Comment on above: Performed By: #### RODRIGO Rangel, HUBERT, MGO, HFP #### [facility] (DEFAULT) [address] [place] [address] 13992 Creatinine [Mass/Vol] 0.56 mg/dL Normal 0.50-1.20 [facility] Comment on above: Performed By: #### RODRIGO Rangel, HUBERT, MGO, HFP #### [facility] (DEFAULT) [address] [place] [address] 19791 eGFR, CKD-EPI, Female > Normal >=60 [facility] Comment on above: Result Comment: Repo rted eGFR is based on the CKD-EPI 2020 equation using creatinine, age, and sex. Performed By: #### RODRIGO Rangel, MELVINMRenee, MGO, HFP #### [facility] (DEFAULT) [address] [place] [address] 62286 Glucose [Mass/Vol] 133 mg/dL High 70-99 [facility] Comment on above: Performed By: #### RODRIGO Rangel, MELVINM7, MGO, HFP #### [facility] (DEFAULT) [address] [place] [address] 30909 Osmolality [Osmolality] 285 mosm/kg Normal 278-305 [facility] Comment on above: Performed By: #### RODRIGO Rangel, MELVINM7, MGO, HFP #### [facility] (DEFAULT) [address] [place] [address] 75339 Potassium [Moles/Vol] 3.9 mmol/L Normal 3.5-5.0 [facility] Comment on above: Performed By: #### C A, IPB, CHM7, MGO, HFP #### [facility] (DEFAULT) [address] [place] [address] 32701 Sodium [Moles/Vol] 136 mmol/L Normal 135-145 [facility] Comment on above: Performed By: #### C A, IPB, CHM7, MGO, HFP #### [facility] (DEFAULT) [address] [place] [address] 33050 Urea nitrogen [Mass/Vol] 6 mg/dL Low 7-25 [facility] Comment on above: Performed By: #### C Danielle, IPB, CHM7, MGO, HFP #### [facility] (DEFAULT) [address] [place] [address] 48128 Urea nitrogen/Creatinine [Mass ratio] 11 mg/mg Normal [facility] Comment on above: Performed By: #### Dayday A, IPB, CHM7, MGO, HFP #### [facility] (DEFAULT) [address] [place] [address] 07717 Anion gap [Moles/Vol] 16 mmol/L 7 - 17 mmol/L [facility] Chloride [Moles/Vol] 103 mmol/L 98 - 10 8 mmol/L [facility] CO2 [Moles/Vol] 21 mmol/L 21 - 31 mmol/L [facility] Creatinine [Mass/Vol] 0.56 mg/dL 0.50 - 1.20 mg/dL [facility] GFR/1.73 sq M.predicted CKD-EPI (S/P/Bld) [Vol rate/Area] - PINF [facility] Comment on above: Reported eGFR is bas ed on the CKD-EPI 2020 equation using creatinine, age, and sex. Glucose [Mass/Vol] 133 mg/dL High 70 - 99 mg/dL [facility] Osmolality Calc [Osmolality] 285 [facility] Potassium [Moles/Vol] 3.9 mmol/L 3.5 - 5.0 mmol/L [facility] Sodium [Moles/Vol] 136 mmol/L 135 - 145 mmol/L [facility] Urea nitrogen [Mass/Vol] 6 mg/dL Low 7 - 25 mg/dL [facility] Urea nitrogen/Creatinine [Mass ratio] 11 mg/mg [facility] CONTINUOUS CARDIAC MONITORIN G STRIPon 05-22-2022 [facility] CONTINUOUS CARDIAC MONITORIN G STRIPOrdered By: Unassigned Pacs on 05-22-2022 [facility] Work Phone: HEPATIC FUNCTION PANELon Albumin [Mass/Vol] 3.8 g/dL Normal 3.5-5.0 [facility] Comment on above: Performed By: #### C A, IPB, CHM7, MGO, HFP #### [facility] (DEFAULT) [address] [place] [address] 38409 ALP [Catalytic activity/Vol] 54 U/L Normal 32-126 [facility] Comment on above: Performed By: #### C A, IPB, CHM7, MGO, HFP #### [facility] (DEFAULT) [address] [place] [address] 19299 ALT [Catalytic activity/Vol] 17 U/L Normal 9-48 [facility] Comment on above: Performed By: #### C A, IPB, CHM7, MGO, HFP #### [facility] (DEFAULT) [address] [place] [address] 09438 AST [Catalytic activity/Vol] 23 U/L Normal 10-39 [facility] Comment on above: Performed By: #### C A, IPB, CHM7, MGO, HFP #### [facility] (DEFAULT) [address] [place] [address] 72798 Bilirubin [Mass/Vol] 0.5 mg/dL Normal <1.5 [facility] Comment on above: Performed By: #### C A, IPB, CHM7, MGO, HFP #### [facility] (DEFAULT) [address] [place] [address] 27994 Bilirubin.indirect [Mass/Vol] 0.2 mg/dL Normal <0.3 [facility] Comment on above: Performed By: #### RODRIGO Rangel CHM7, MGO, HFP #### [facility] (DEFAULT) [address] [place] [address] 82375 Protein [Mass/Vol] 6.3 g/dL Low 6.4-8.3 [facility] Comment on above: Performed By: #### RODRIGO Rangel, HUBERT, MGO, HFP #### [facility] (DEFAULT) [address] [place] [address] 10360 Albumin [Mass/Vol] 3.8 g/dL 3.5 - 5.0 g/dL [facility] ALP [Catalytic activity/Vol] 54 U/L 32 - 126 U/L [facility] ALT [Catalytic activity/Vol] 17 U/L 9 - 48 U/L [facility] AST [Catalytic activity/Vol] 23 U/L 10 - 39 U/L [facility] Bilirubin [Mass/Vol] 0.5 mg/[facility] mg/[facility] Bilirubin.direct [Mass/Vol] 0.2 mg/dL NINF - 0.3 mg/dL [facility] Protein [Mass/Vol] 6.3 g/dL Low 6.4 - 8.3 g/dL [facility] MAGNESIUMon 05-22-2022 Magnesium [Mass/Vol] 1.4 mg/dL Low 1.6-2.6 [facility] Comment on above: Performed By: #### RODRIGO Rangel, HUBERT, MGO, HFP #### [facility] (DEFAULT) [address] [place] [address] 38800 Magnesium [Mass/Vol] 1.4 mg/dL Low 1.6 - 2 .6 mg/dL [facility] No Panel Informationon 05-22 ABO/RH(D) TYPE Positive [facility] BLOOD COMPONENT TYPE Red Cells, Leukoreduced [facility] EXPIRATION DATE [facility] Product ABO/RH(D) Positive [facility] Product ABO/RH(D) NUMBER 6200 [facility] PRODUCT CODE [id number] [facility] UNIT STATUS released [facility] Interpretation and review of laboratory results Abnormal [facility] PHOSPHATE, INORGANICon 05-22 Phosphorous 3.3 mg/dL Normal 2.2-4.6 [facility] Comment on above: Performed By: #### C A, IPB, CHM7, MGO, HFP #### [facility] (DEFAULT) [address] [place] [address] Interpretation and review of laboratory results Normal [facility] Phosphate [Mass/Vol] 3.3 mg/dL 2.2 - 4 .6 mg/dL [facility] POC ARTERIAL BLOOD GASon Base excess Calc (Bld) [Moles/Vol] -2.1000 mmol/L -3.0 - 3.0 mmol/L [facility] Calcium.ionized (Bld) [Mass/Vol] 4.22 mg/dL Low 4.60 - 5.30 mg/dL [facility] CO2 (Bld) [Partial pressure] 33 mm[Hg] [facility] Glucose [Mass/Vol] 127 mg/dL High 70 - 99 mg/dL [facility] HCO3 (Bld) [Moles/Vol] 22 mmol/L 22 - 28 mmol/L [facility] Hematocrit (Bld) [Volume fraction] 34.5 % 34.2 - 45.6 % [facility] Hemoglobin (Bld) [Mass/Vol] 11.3 g/dL Low 11.4 - 15.2 g/dL [facility] Interpretation and review of laboratory results Abnormal [facility] Lactate [Moles/Vol] 1.2 mmol/L 0.5 - 1. 6 mmol/L [facility] Oxygen (Bld) [Partial pressure] 230 mm[Hg] High [facility] Oxygen saturation in Blood 99 % [facility] pH (Bld) 7.42 [pH] 7.35 - 7.45 [facility] Potassium [Moles/Vol] 3.6 mmol/L 3.5 - 5.0 mmol/L [facility] Sodium [Moles/Vol] 137 mmol/L 135 - 145 mmol/L [facility] Specimen source Nom (Unsp spec) Arterial [facility] Test performed at address of the patient encounter. [facility] Base excess Calc (Bld) [Moles/Vol] 0.0 mmol/L -3.0 - 3.0 mmol/L [facility] Calcium.ionized (Bld) [Mass/Vol] 4.56 mg/dL Low 4.60 - 5.30 mg/dL [facility] CO2 (Bld) [Partial pressure] 38 mm[Hg] [facility] Glucose [Mass/Vol] 138 mg/dL High 70 - 99 mg/dL [facility] HCO3 (Bld) [Moles/Vol] 24 mmol/L 22 - 28 mmol/L [facility] Hematocrit (Bld) [Volume fraction] 34.7 % 34.2 - 45.6 % [facility] Hemoglobin (Bld) [Mass/Vol] 11.3 g/dL Low 11.4 - 15.2 g/dL [facility] Interpretation and review of laboratory results Abnormal [facility] Oxygen (Bld) [Partial pressure] 197 mm[Hg] High [facility] Oxygen saturation in Blood 99 % [facility] pH (Bld) 7.42 [pH] 7.35 - 7.45 [facility] Potassium [Moles/Vol] 3.4 mmol/L Low 3.5 - 5.0 mmol/L [facility] Sodium [Moles/Vol] 138 mmol/L 135 - 145 mmol/L [facility] Specimen source Nom (Unsp spec) Arterial [facility] Test performed at address of the patient encounter. [facility] PREPARE TO TRANSFUSE OR RED BLOOD CELLSon 05-22-2022 UNIT NUMBER [id number] [facility] UNIT NUMBER [id number] [facility] PROTIME-INRon 05-22-2022 INR Coag (PPP) [Relative time] 1.2 {INR} High 0.9-1.1 [facility] Comment on above: Performed By: #### C Danielle, SHANEKAB, MELVINM7, MGO, HFP #### [facility] (DEFAULT) [address] [place] [address] PT Coag (PPP) [Time] 14.8 s High 11.9-14.2 [facility] Comment on above: Performed By: #### C Danielle, IPB, CHM7, MGO, HFP #### [facility] (DEFAULT) [address] [place] [address] 61027 INR Coag (Bld) [Relative time] 1.2 {INR} High 0.9 - 1.1 [facility] Interpretation and review of laboratory results Abnormal [facility] PT Coag (PPP) [Time] 14.8 s High 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 Normal [facility] Comment on above: Performed By: #### C RODRIGO Santos, HUBERT, MGO #### [facility] (DEFAULT) [address] [place] [address] Gross Description Normal [facility] Comment on above: Result Comment: The specimens [...] and granular lesion Lab Use Only: JobID [id number] Lab Use Only: JobID [id number] ([facility]) Grosser for this case was: Pedro Jacobsen For Immediate Release to Patient's MyChart? Yes Performed By: #### C Danielle, RODRIGO, CHM7, MGO #### [facility] (DEFAULT) [address] [place] [address] Microscopic Description A microscopic examination was performed. Normal [facility] Comment on above: Performed By: #### C Danielle, RODRIGO, CHM7, MGO #### [facility] (DEFAULT) [address] [place] [address] Pathologic Diagnosis Normal [facility] Comment on above: Result Comment: A. [...] developed by and are performed at the [facility], [address] [place] [address] [address], [place] [address]. All tests reported here, except those addressing HER2 overexpression as a predictive marker, have not been cleared by or approved by the [place] Food and Drug Administration (FDA). The laboratory is regulated under CLIA as qualified to perform high-complexity testing. The tests are used for clinical purposes. They should not be regarded as investigational or for research. Performed By: #### RODRIGO Rangel CHM7, MGO #### [facility] (DEFAULT) [address] [place] [address] 17849 TYPE AND SCREENon 05-22-2022 ABO/RH(D) TYPE Positive Normal [facility] Comment on above: Performed By: #### RODRIGO Rangel CHM7, MGO #### [facility] (DEFAULT) [address] [place] [address] 98995 ABO/RH(D) TYPE Positive [facility] XR ABDOMEN 1 VIEWon 05-22-20 XR ABDOMEN [...] the nasogastric tube in the stomach. Normal [facility] XR Abdomen Single viewon IMPRESSION: Appropriate [...] of the nasogastric tube in the stomach. [facility] Radiology Study observation (narrative) [facility] XR Abdomen Single viewOrdere d By: Debora Burciaga on 05-22-2022 [facility] Work Phone: PREG HCG QUALon 04-08-2022 , QUAL Negative Normal NEGATIVE [facility] Comment on above: Performed By: #### P REG #### [facility] [address] [place] [address] Dr. Esthela Stevens Covid-19 PCR (CVDTB)on 03-19 SARS-CoV-2 (COVID-19) RNA JORGE LUIS+probe Ql (Unsp spec) Not detected Normal NOT DETECTED [facility] Comment on above: Result Comment: This test is not yet approved or cleared by the [place] FDA. When there are no FDA-approved or cleared tests available, and other criteria are met, FDA can make tests available under an emergency access mechanism called an Emergency Use Authorization (EUA). The EUA for this test is supported by the [place] of Health and Human Service's (HHS's) declaration [...] By: #### L IVER, LDH, BMP #### [facility] [address] [place] [address] Abdomen and Pelvis [...] error, please notify the sender immediately at [phone] and permanently delete the original report and [...] error, please notify the sender immediately at [phone] and permanently delete the original report and destroy any copies or printouts. [facility] CT Abdomen and Pelvis W cont rast IVOrdered By: Avinash Miller on 04-01-[address] [facility] [address] Chest W contrast Jason IMPRESSION: [...] 1. No evidence for intrathoracic metastatic disease [facility] CT Chest W contrast IVOrdere d By: Yovany Bills on 03-31-2022 [facility] Work Phone: No Panel Informationon 03-31 Radiology Study observation (narrative) [facility] CBC AND ELECTRONIC DIFFon Basophils (Bld) [#/Vol] 0.05 10*3/uL 0.00 - 0.15 K/uL [facility] Basophils/100 WBC (Bld) 0.6 % [facility] Differential cell count method Nom (Bld) Electronic Differential [facility] Eosinophils (Bld) [#/Vol] 0.07 10*3/uL 0.00 - 0.42 K/uL [facility] Eosinophils/100 WBC (Bld) 0.8 % [facility] Erythrocyte distribution width (RBC) [Ratio] 13.4 % 10.8 - 14.9 % [facility] Hematocrit (Bld) [Volume fraction] 37.9 % 34.9 - 44.3 % [facility] Hemoglobin (Bld) [Mass/Vol] 11.9 g/dL 11.4 - 15.2 g/dL [facility] Immature granulocytes (Bld) [#/Vol] 0.04 10*3/uL <=0.08 [facility] Immature granulocytes/100 WBC (Bld) 0.5 % [facility] Interpretation and review of laboratory results Abnormal [facility] Lymphocytes (Bld) [#/Vol] 2.33 10*3/uL 1.16 - 3.51 K/uL [facility] Lymphocytes/100 WBC (Bld) 27.4 % [facility] MCH (RBC) [Entitic mass] 26.3 pg 25.9 - 33.9 pg [facility] MCHC (RBC) [Mass/Vol] 31.4 g/dL 31.4 - 35.9 g/dL [facility] MCV (RBC) [Entitic vol] 83.8 fL 79.6 - 97.7 fL [facility] Monocytes (Bld) [#/Vol] 0.46 10*3/uL 0.22 - 0.87 K/uL [facility] Monocytes/100 WBC (Bld) 5.4 % [facility] Neutrophils (Bld) [#/Vol] 5.55 10*3/uL 1.64 - 7.28 K/uL [facility] Nucleated RBC/100 WBC (Bld) [Ratio] 0.0 % <=0.2 /100 WBC [facility] Platelet mean volume (Bld) [Entitic vol] 10.0 fL 8.5 - 12.2 fL [facility] Platelets (Bld) [#/Vol] 402 10*3/uL High 150 - 393 K/uL [facility] RBC (Bld) [#/Vol] 4.52 10*6/uL [facility] Segmented neutrophils/100 WBC (Bld) 65.3 % [facility] WBC (Bld) [#/Vol] 8.50 10*3/uL 3.99 - 11. 19 K/uL [facility] COMPREHENSIVE METABOLIC PANE Shamir 03-19-2022 Albumin [Mass/Vol] 4.5 g/dL 3.5 - 5.0 g/dL [facility] ALP [Catalytic activity/Vol] 67 U/L 32 - 126 U/L [facility] ALT [Catalytic activity/Vol] 15 U/L 9 - 48 U/L [facility] Anion gap [Moles/Vol] 16 mmol/L 7 - 17 mmol/L [facility] AST [Catalytic activity/Vol] 14 U/L 10 - 39 U/L [facility] Bilirubin [Mass/Vol] 0.4 mg/dL <1.5 [facility] Calcium [Mass/Vol] 9.8 mg/dL 8.6 - 10. 5 mg/dL [facility] Chloride [Moles/Vol] 100 mmol/L 98 - 10 8 mmol/L [facility] CO2 [Moles/Vol] 27 mmol/L 21 - 31 mmol/L [facility] Creatinine [Mass/Vol] 0.66 mg/dL 0.50 - 1.20 mg/dL [facility] GFR/1.73 sq M.predicted CKD-EPI (S/P/Bld) [Vol rate/Area] >90 >=60 mL/min/1.73m2 [facility] Comment on above: Reported eGFR is bas ed on the CKD-EPI 2020 equation using creatinine, age, and sex. Glucose [Mass/Vol] 73 mg/dL 70 - 99 mg/dL [facility] Osm[facility]ality [facility]olality] [facility] Potassium [Moles/Vol] 3.6 mmol/L 3.5 - 5.0 mmol/L [facility] Protein [Mass/Vol] 7.4 g/dL 6.4 - 8.3 g/dL [facility] Sodium [Moles/Vol] 139 mmol/L 135 - 145 mmol/L [facility] Urea nitrogen [Mass/Vol] 10 mg/dL 7 - 25 mg/dL [facility] Urea nitrogen/Creatinine [Mass ratio] 15 mg/mg [facility] PT,INR,PTTon 03-19-2022 aPTT Coag (PPP) [Time] 36.5 s [facility] INR Coag (Bld) [Relative time] 1.2 {INR} [facility] Interpretation and review of laboratory results Abnormal [facility] PT Coag (PPP) [Time] 14.6 s [facility] CBC AUTO DIFFon 02-03-2022 BASO # 0.1 103/ul Normal 0.0-0.1 [facility] Comment on above: Performed By: #### L IVER, LDH, BMP #### [facility] [address] [place] [address] Dr. Esthela Stevens Basophils/100 WBC (Bld) 0.5 % Normal 0.2-2.0 [facility] Comment on above: Performed By: #### L IVER, LDH, BMP #### [facility] [address] [place] [address] Dr. Esthela Stevens EO # 0.1 103/ul Normal 0.0-0.7 [facility] Comment on above: Performed By: #### L IVER, LDH, BMP #### [facility] [address] [place] [address] Dr. Esthela Stevens Eosinophils/100 WBC (Bld) 1.2 % Normal 0.9-7.0 [facility] Comment on above: Performed By: #### L IVER, LDH, BMP #### [facility] [address] [place] [address] Dr. Esthela Stevesn Erythrocyte distribution width (RBC) [Ratio] 13.2 % Normal 11.0-15.0 [facility] Comment on above: Performed By: #### L IVER, LDH, BMP #### [facility] [address] [place] [address] Dr. Esthela Stevens Hematocrit (Bld) [Volume fraction] 38.4 % Normal 36.0-48.0 [facility] Comment on above: Performed By: #### L IVER, LDH, BMP #### [facility] [address] [place] [address] Dr. Esthela Stevens Hemoglobin (Bld) [Mass/Vol] 12.2 g/dL Normal 12.0-16.0 [facility] Comment on above: Performed By: #### L IVER, LDH, BMP #### [facility] [address] [place] [address] Dr. Esthela Stevens IG # 0.06 10e3/ul Critically high 0.00-0.03 [facility] Comment on above: Performed By: #### L IVER, LDH, BMP #### [facility] [address] [place] [address] Dr. Esthela Stevens IG % 0.6 % Critically high 0.0-0.5 [facility] Comment on above: Performed By: #### L IVER, LDH, BMP #### [facility] [address] [place] [address] Dr. Esthela Stevens LYMPH # 2.1 103/ul Normal 1.2-3.8 [facility] Comment on above: Performed By: #### L IVER, LDH, BMP #### [facility] [address] [place] [address] Dr. Esthela Stevens Lymphocytes/100 WBC (Bld) 21.7 % Normal 20.5-60.0 [facility] Comment on above: Performed By: #### L IVER, LDH, BMP #### [facility] [address] [place] [address] Dr. Esthela Stevens MANUAL DIFF REQ NO Normal [facility] Comment on above: Performed By: #### L IVER, LDH, BMP #### [facility] [address] [place] [address] Dr. Esthela Stevens MCH (RBC) [Entitic mass] 26.5 pg Critically low 26.7-34.0 [facility] Comment on above: Performed By: #### L IVER, LDH, BMP #### [facility] [address] [place] [address] Dr. Esthela Stevens MCHC (RBC) [Mass/Vol] 31.8 g/dL Normal 29.9-35.2 [facility] Comment on above: Performed By: #### L IVER, LDH, BMP #### [facility] [address] [place] [address] Dr. Esthela Stevens MCV (RBC) [Entitic vol] 83.5 fL Normal 81.0-99.0 [facility] Comment on above: Performed By: #### L IVER, LDH, BMP #### [facility] [address] [place] [address] Dr. Esthela Stevens MONO # 0.7 103/ul Normal 0.3-0.8 [facility] Comment on above: Performed By: #### L IVER, LDH, BMP #### [facility] [address] [place] [address] Dr. Esthela Stevens Monocytes/100 WBC (Bld) 7.5 % Normal 1.7-12.0 [facility] Comment on above: Performed By: #### L IVER, LDH, BMP #### [facility] [address] [place] [address] Dr. Esthela Stevens NEUT # 6.8 103/ul Critically high 1.4-6.5 [facility] Comment on above: Performed By: #### L IVER, LDH, BMP #### [facility] [address] [place] [address] Dr. Esthela Stevens Neutrophils/100 WBC (Bld) 68.5 % Normal 43.0-75.0 [facility] Comment on above: Performed By: #### L IVER, LDH, BMP #### [facility] [address] [place] [address] Dr. Esthela Stevens Platelet mean volume (Bld) [Entitic vol] 9.4 fL Critically low 9.5-13.5 [facility] Comment on above: Performed By: #### L IVER, LDH, BMP #### [facility] [address] [place], [place] [address] Dr. Esthela Stevens PLT 403 103/ul Normal 150-450 [facility] Comment on above: Performed By: #### L IVER, LDH, BMP #### [facility] [address] [place], [place] [address] Dr. Esthela Stevens RBC 4.60 106/ul Normal 4.20-5.40 [facility] Comment on above: Performed By: #### L IVER, LDH, BMP #### [facility] [address] [place], [place] [address] Dr. Esthela Stevens WBC 9.9 103/ul Normal 4.0-11.0 [facility] Comment on above: Performed By: #### L IVER, LDH, BMP #### [facility] [address] [place] [address] ABD/PELV W CONon [...] CAROLYN WALSH Date: 2022-02-03 12:14 Normal [facility] Covid-19 PCR (CVDTB)on 01-16 SARS-CoV-2 (COVID-19) RNA JORGE LUIS+probe Ql (Unsp spec) Not detected Normal NOT DETECTED [facility] Comment on above: Result Comment: When [...] for this test is supported by the [place] [employer] and Human Service's declaration that [...] By: #### L IVER, LDH, BMP #### [facility] [address] [place] [address] Dr. Esthela Stevens ER URINE PROFILEon 2 Bilirubin Ql (U) Negative Normal NEGATIVE [facility] Comment on above: Performed By: #### E LAURA UMICRO #### [facility] [address] [place] [address] [address] Esthela Stevens Clarity (U) CLEAR Normal CLEAR [facility] Comment on above: Performed By: #### E LAURA UMICRO #### [facility] [address] [place] [address] [address] Esthela Stevens Color (U) LT. YELLOW Normal YELLOW [facility] Comment on above: Performed By: #### E LAURA UMICRO #### [facility] [address] [place] [address] Dr. Esthela ARGUELLES A micrscopic examination will be performed if indicated. Normal [facility] Comment on above: Performed By: #### Toñito SANCHEZ UMICRO #### [facility] [address] [place] [address] Dr. Esthela Stevens Glucose Ql (U) Negative Normal NEGATIVE [facility] Comment on above: Performed By: #### Toñito SANCHEZ UMICRO #### [facility] [address] [place] [address] Dr. Esthela Stevens Hemoglobin Ql (U) Negative Normal NEGATIVE [facility] Comment on above: Performed By: #### ERUM WALLACERO #### [facility] [address] [place] [address] Dr. Esthela Stevens Ketones Ql (U) Negative Normal NEGATIVE [facility] Comment on above: Performed By: #### ERUM WALLACERO #### [facility] [address] [place] [address] Dr. Esthela Stevens LEUKOCYTES SMALL Abnormal NEGATIVE [facility] Comment on above: Performed By: #### MERISSA WALLACEICRO #### [facility] [address] [place] [address] Dr. Esthela Stevens Nitrite Ql (U) Negative Normal NEGATIVE [facility] Comment on above: Performed By: #### ERUM WALLACERO #### [facility] [address] [place] [address] Dr. Esthela Stevens pH (U) 7.0 [pH] Normal 5-9 [facility] Comment on above: Performed By: #### MERISSA WALLACEICRO #### [facility] [address] [place] [address] Dr. Esthela Stevens SPEC GRAVITY 1.015 Normal 1.005-<=1.025 [facility] Comment on above: Performed By: #### MERISSA WALLACEICRO #### [facility] [address] [place] [address] Dr. Esthela Stevens UA PROTEIN Negative Normal NEGATIVE/ TRACE [facility] Comment on above: Performed By: #### E RUR, UMICRO #### [facility] [address] [place] [address] Dr. Esthela Stevens UR MICRO IND INDICATED Normal [facility] Comment on above: Performed By: #### E RUR, UMICRO #### [facility] [address] [place] [address] Dr. Esthela Stevens Urobilinogen Qn (U) 0.2 {Emeka'U}/dL Normal 0.2 - 1. 0 [facility] Comment on above: Performed By: #### E LAURA, UMICRO #### [facility] [address] [place] [address] Dr. Esthela Stevens LACTATE/LACTIC ACIDon 2021 Lactate [Moles/Vol] 1.3 mmol/L Normal 0.4-1.9 [facility] Comment on above: Performed By: #### P REG #### [facility] [address] [place] [address] Dr. Esthela Stevens LIPASEon 02-03-2022 Lipase [Catalytic activity/Vol] 58.0 U/L Critically low 73.0-393.0 [facility] Comment on above: Performed By: #### L IPA, CMP #### [facility] [address] [place] [address] Dr. Esthela Stevens PREG HCG QUALon 02-03-2022 , QUAL Negative Normal NEGATIVE [facility] Comment on above: Performed By: #### L IVER, LDH, BMP #### [facility] [address] [place] [address] Dr. Esthela Stevens PROF 14(COMP METB)on 022 Albumin [Mass/Vol] 3.8 g/dL Normal 3.4-5.0 [facility] Comment on above: Performed By: #### L IPA, CMP #### [facility] [address] [place] [address] Dr. Esthela Stevens Albumin/Globulin [Mass ratio] 1.0 {ratio} Normal [facility] Comment on above: Performed By: #### L IPA, CMP #### [facility] [address] [place] [address] [address] Esthela Stevens ALP [Catalytic activity/Vol] 75 U/L Normal 46-116 [facility] Comment on above: Performed By: #### L IPA, CMP #### [facility] [address] [place] [address] [address] Esthela Stevens ALT [Catalytic activity/Vol] 37 U/L Normal 14-59 [facility] Comment on above: Performed By: #### L IPA, CMP #### [facility] [address] [place] [address] [address] Esthela Stevens Anion gap [Moles/Vol] 14.0 mmol/L Normal [facility] Comment on above: Performed By: #### L IPA, CMP #### [facility] [address] [place] [address] Dr. Esthela Stevens AST [Catalytic activity/Vol] 14 U/L Critically low 15-37 [facility] Comment on above: Performed By: #### L IPA, CMP #### [facility] [address] [place] [address] [address] Esthela Stevens Bilirubin [Mass/Vol] 0.2 mg/dL Normal 0.2-1.0 [facility] Comment on above: Performed By: #### L IPA, CMP #### [facility] [address] [place] [address] [address] Esthela Stevens Calcium [Mass/Vol] 8.9 mg/dL Normal 8.5-10.1 [facility] Comment on above: Performed By: #### L IPA, CMP #### [facility] [address] [place] [address] [address] Esthela Stevens Chloride [Moles/Vol] 103 mmol/L Normal 98-107 [facility] Comment on above: Performed By: #### L IPA, CMP #### [facility] [address] [place] [address] [address] Esthela Stevens CO2 [Moles/Vol] 25.2 mmol/L Normal 21.0-32.0 [facility] Comment on above: Performed By: #### L IPA, CMP #### [facility] [address] [address] [address] Esthela Stevens Creatinine [Mass/Vol] 0.72 mg/dL Normal 0.55-1.02 [facility] Comment on above: Performed By: #### L IPA, CMP #### [facility] [address] [place] [address] [address] Esthela Stevens EGFR-AF TURKMEN >60 Normal >=60 [facility] Comment on above: Performed By: #### L IPA, CMP #### [facility] [address] [place] [address] [address] Esthela Stevens EGFR-NON AF TURKMEN >60 Normal >=60 [facility] Comment on above: Performed By: #### L IPA, CMP #### [facility] [address] [place] [address] Dr. Esthela Stevens Globulin (S) [Mass/Vol] 3.7 g/dL Normal [facility] Comment on above: Performed By: #### L IPA, CMP #### [facility] [address] [place] [address] [address] Esthela Stevens Glucose [Mass/Vol] 101 mg/dL Normal 74-[address] [facility] Comment on above: Performed By: #### L IPA, CMP #### [facility] [address] [place] [address] Dr. Esthela Stevens Potassium [Moles/Vol] 4.2 mmol/L Normal 3.5-5.1 [facility] Comment on above: Performed By: #### L IPA, CMP #### [facility] [address] [place] [address] [address] Esthela Stevens Protein [Mass/Vol] 7.5 g/dL Normal 6.4-8.[address] [facility] Comment on above: Performed By: #### L IPA, CMP #### [facility] [address] [place] [address] Dr. Esthela Stevens Sodium [Moles/Vol] 138 mmol/L Normal 136-[address] [facility] Comment on above: Performed By: #### L IPA, CMP #### [facility] [address] [place] [address] Dr. Esthela Stevens Urea nitrogen [Mass/Vol] 11.0 mg/dL Normal 7.0-18.0 [facility] Comment on above: Performed By: #### L IPA, CMP #### [facility] [address] [place] [address] Dr. Esthela Stevens Urea nitrogen/Creatinine [Mass ratio] 15.3 mg/mg Normal [facility] Comment on above: Performed By: #### L IPA, CMP #### [facility] [address] [place] [address] Dr. Esthela Stevens URINE MICROSCOPIC ONLYon BACTERIA NONE SEEN Normal NONE SEEN [facility] Comment on above: Performed By: #### E YELENAR, UMICRO #### [facility] [address] [place] [address] Dr. Esthela Stevens Bacteria identified Cx Nom (U) NOT INDICATED Normal [facility] Comment on above: Performed By: #### E LAURA, UMICRO #### [facility] [address] [place] [address] Dr. Esthela Stevens CAST NONE SEEN Normal NONE SEEN [facility] Comment on above: Performed By: #### E YELENAR, UMICRO #### [facility] [address] [place] [address] Dr. Esthela Stevens Crystals LM Nom (Urine sed) NONE SEEN Normal NONE SEEN [facility] Comment on above: Performed By: #### E RUR, UMICRO #### [facility] [address] [place] [address] Dr. Esthela Stevens Epithelial cells LM Ql (Urine sed) FEW Abnormal NONE SEEN /RARE [facility] Comment on above: Performed By: #### E YELENAR, UMICRO #### [facility] [address] [place] [address] Dr. Esthela Stevens MUCOUS NONE SEEN Normal NONE SEEN [facility] Comment on above: Performed By: #### Toñito KIRKR, UMICRO #### [facility] [address] [place] [address] Dr. Esthela Stevens RBC 0-2 Normal 0-2 [facility] Comment on above: Performed By: #### E MAKENZIE SANCHEZ #### [facility] [address] [place], [place] [address] Dr. Esthela Stevens WBC 2-5 Abnormal NONE SEEN [facility] Comment on above: Performed By: #### E MAKENZIE SANCHEZ #### [facility] [address] [place], [place] [address] Dr. Esthela Stevens Test, Urineon Beta HCG ( test) Ql (U) Negative [employer] Other Urinalysis - AUTOMATEDon Appearance (U) clear [employer] Other Bilirubin Ql (U) Negative [employer] Other Color (U) yellow [employer] Other Glucose Ql (U) Negative [employer] Other Hemoglobin Ql (U) Negative [employer] Other Ketones Ql (U) 15 [employer] Other Leukocyte esterase Test strip Ql (U) Negative [employer] Other Nitrite Ql (U) Negative [employer] Other pH (U) 7.0 [pH] [employer] Other Protein Ql (U) Negative [employer] Other Specific gravity (U) [Rel density] 1.020 [employer] Other Urobilinogen (U) [Mass/Vol] 0.2 mg/dL [employer] Other Urinalysis - AUTOMATED [employer] Other Urine Cultureon 12-22-2021 Bacteria identified Cx Nom (U) >100,000 colonies/ml mixed bacterial skin contaminants 2 Days PERFORMED BY: [address] [id number] PATHOLOGIST [employer] FELY STODDARD M.D. [facility] Comment on above: Performed By: #### C UU #### [place] [id number] [facility] Coding Summary.on 02-18-2021 Coding Summary. [id number] Gh0bWw+PGhlYWQ+PE1FV DTkH86teNSavE0EP7rBT F9ZZFMNWESKUM7HVV1xb EI5JIidU5HvjaIs HrgblMXeQL24NFu1FEU3 vUiiGJhqwY6qeLYbK2u2 NiMwSJ99nG00NWeyTPZw PlO2LqTrkapmwZBn R9mfMiLroKFjPcg+PHRh YmxlIHdpZHRoPScxMDAl FhDznEnmNO1fHu8fBFVp LWNvbGxhcHNlOiBj u8atCSUeEKrmRN5xhGpu K2DpiNO3PROop4s4Wu69 dHI+LYQsVBW4vKijRIcn g404JdZoc7jcUEC0 tKQyMVugSAQ7J67up0C8 EUQsCJFpGCA1yGC1gF7s nHyomptiJ9HlqBCtHmI3 HKY3rHSmyO9kgOyz bmaccY3sHqu+S35TRM5W QTHLXB7UEei1Q6PtMbrr dHI+FR42JUAbIF20rVMz yOAde1qfoPk2HtWi NRXaIQZ2bPjaPRdsq8Ot WXNaA25coURdj5Q5OTXx uFltbKVgEzIajUZ1sI0s UAcjxxiqh0mltwfk Ybipd8hbnt69wY46R13y IHvtYFXgJDO6ZOVcAGSv fHecme8sxE7eMb4+IDxj k1jex9shrLp0UvZb MPFlmdWvwRlcNWF3x0Be Uh75E5WnnArrr4EzLcp8 bi42vNHsg5U5yKU1GQgw ZXZlgO2dFTmbPcJ1 GWRnEiRsyY44bBDjYFdi Gs7giMqwjNomUF2bIKAn hvjsQHOtrL9yGKPrnZZs tXzpAV0qGJZurptw w611JoYwUCB7RFDrcGYi K1KqxG7zDsJoRRKrMODk T5PpvVCxEJkwP449JLym FyL1VGFchcYpK1Ec ZZRdiPalQrF1t7U2Ut5X e8CirdboKMQ3FLwqTMV0 FaSbIvXhLcX6N0MxRiu5 VNSgzGnkVM3vW9Mb MNUildxjrugnmML5KFEj WTTiuB73qCEeEDpfOo4d e2Z5s656HVNhQGXvxV18 Ib8zdCbmOUXuuBOD jI5dmamjy5vkwkkfQyAb ILVzEPw6ERv4SWGruNum ZnHgPXT6UmU0WWH6jWHc cG1kdPjylyndzR4e Oyc+R23beR3jXPG8VSB8 lwddMDVhvuBpDG22KF71 U8VyUvzmgATjzZS+PGRp nfXgdJbpYB9vGhQt f3ubp1YfTKwzG5ErBIIo YJjxHwk7JLLwHMF2kKA1 lX7mMLLqXKesm9S8sLX7 B7IuahQgli2yn2cq HOHrVLvbT80niSSpr5H2 YNJbaXS0TAGfrZbkGrJn dC10Bld+HSQznJpbz4Gp Wwmqk0exy7hzmQc2 IjMwJSIgdmFsaWduPSJ0 g9NsWx69D47wYSwiAVUa AGGgNCBzQTFgvUqlad0t iL9wUz9+PGNvbCB3 xUP6kP3kRKUtJkE8KJsd V822McSbiPSgLgjba9wo c5sfqQc6JbGbFDTohlJc eSkeZIG2m8JjEs48 F10zSOrbKHVzBRQeZMEl IMEzlVebol5zdW4zEr2+ LD0em9gebn34tG59rEA+ AFPxHXR4rRezEXcv XABioG6vDYyhAbM2FMEa JnFrpH97oQFqXXksZt8f fNakoKayCC1pTAYryibm u497NcCdh2doNNZx xJJxRKofPIL7B46yg4Y2 WFKgRTCgOPP5iVY0vM3s bGlnbjogbGVmdDsgdmVy mDsjPUsxGMsvZ383 IHRvcDsnPlBhdGllbnQg XuJyKPf3A8IfVvf9EBUv uFliZM4rpUQsFKalAp2t aHsvlImwMU7pKZAx dworh334QnFuh2kpNUAz jITkOHokBUH4T32rn7Q5 GQIbRQQzVDZ1yMY6zM7l bGlnbjogbGVmdDsg lwSrxGaiWFxzUJeoI144 IHRvcDsnPkJpcnRoIERh bIZ6EZ37NH20wZGzg2A7 cJP0Y8NbISIziyeg hgynxPW4CDEtXIPnaL82 Dm6biWisZw7nZKFjYEZ4 CXSzxUBwK7FhcC2kEoUm HJEiJHRsM6YhwPKj CRnzM172BXqfDjK2LXTx coNsM2RbDZVfnSydSnX1 o9D2Df0JC1D6WU12PM68 aBTxh2I1kCQ8U4Uy CNLbuaytrkxzwTA4XRDv FMTreE75Aa8stDrzLk7b ZVOfEMO4HIMcaPEcV4Ju dP9kJyCjRDEmTOBf M5AakBPvKNdsO951LBme OpQ7YSDzfwQgB2PwRNZo bZqsUmJ1n6O5Ps9WYXe8 UQ60OY46pDMst8D5 dDV7D2BiWGXrpnhnvosk jDX7TGGoQRMoxH50Sn9y nBuvOg9gXTQvKCT4IHWb aSKsM6DyzT5vArPm DGJmELNwP2RtuONpYBdc N161CTyuRkA5EVPlpnOk Q8KfBHXsbVomYsG2e2G0 Xw4HIOQeCP15HDL0 kQF7AZ86EQ51O6PwOptr dGFibGU+PHRhYmxlIHdp ZHRoPScxMDAlJyBzdHls QS7rYl1hQUThEGLb hBfkcELzKkHsc9shUPFr NJndLB4smDyhJ5XauHT6 BPDni2g8Xq92H26rG7Nq dXA+IEHpuBY0nKI5 wA0zMnUrVeT5MOwjA886 WgAteSVuDjzik2gsf1yo kUk0XpM8JWGqtqRjkJkr ZDU7f9TnNn45E86f IHdpZHRoPSIxNSUiIHZh iOhidt1zeA0fTo3+PGNv uOK1wIH0vW4nMxKfQkQ6 DCxiV471BtGerIOt Etnef4zzu1ednPo4MbKs WFOxisHhbUsxXPP5v5Zk Ze26H1RfzLkxq8WoUkf5 rt63qKOoe9Q0nOU9 B0EqHMIhmpjoeIWlyJfb FG9gIQThjatzCMFxpB6r HEHtO2m5QrQxPbF7FXho Y7MeloI9RIBxuGWc MAzgDXN0I20sp9J0IUPs NULkDUW4eHB4bK0mnYvg bjogbGVmdDsgdmVydGlj AJdhIOvgG564QQBj oBpfNJCrlF5tEWUzqACr fGzvGR3pFGEmrnzkAebA TNaYNlliH2YKPZIQXWz0 K8IlKcd8EKDhzAww SW0llNSaKOgwKb7chYpt vSfcUM5bJSEcqhhnXKCz wJ7uOBXpzSTufWluMR1f QRCsoaavp563IcQa NFF0SAOuzNAkR1XkwH7d QoCaURKjHDEeC5XyiHNf AEvoZ102DBneVkL1FSMo fuSwY1TmHYLwyHdt XvF2l5O7Ab7dXH9uTX5b REt0HS98XY66bFIar6X6 sUH2T4KbZZYqhyrpssyf lWO6KDAhKVUljK14 oSVdRRlwWw2fj6M0g626 KGHaKIZtdH68Ud9stWjj GADvwXKUwO2dgigky8uh cjogIzAwMDAwMDt0 JPu6ZQLgyDqhUgDuABT1 YdM2XXR4eHHunZ4apBvd jvsxvH5wSxp+MjMgWWVh khN2U1VvOxm6MVKl ePmvFP7rdSSlIZxqPg1k dMgvmGtyYX0hDKIcihxb LFStaD5tHFRgoTIzrAag WV4bTRYtbgnyw792 ZqLwRKY4EGVeoXOqJ7Yx gY8oCvWwGTBtCUNsJ8Fy zNGaFObvA167SNafNtI8 UCRglgSeU6HsJDMz cWixPsV9b1W3Kz9WIB5r iKP1Y0VkZjb3KXKsvPrz LR8rfEHyUOlzXv5wfHgi bSrjVH9kQURqydkd MDZfaX1iYPGffXEqgLvw EM2zFGBkjtieo609HlOg SEI3OXMdkRQpW0ZfvV2x SxAmIGUmULEzK8Px vBKqCAuiT878UEdqAdC9 UDKdnwSrZ8HcLCFurMtp HwN0y5N9Gc8BjCTzD5Yn U8w3F8QeFmewdJR+ IB97CJLlWM91cBIuuLJa j9tuoUv2SgQkBSVdVRF0 cWllNWkvh1WpCIVtH94g fQYgr4X4JFXjoWlb bZIpQiCbfWH9jS8tXDbe nsulz2poqhrnCarda0vf vc18hO13X43qXYxfKJLb PSIzMCUiIHZhbGln vb7uqU2zKe0+PGNvbCB3 cPM7cB9rRgZnErL9WLeb A735KoQrvXStWiexj8vn s7cskYm8TwEhHBTl vlFwrDfsAVO4d7MrBn88 S87yTPypLRCjZIFcZNNy PVTvoPyczm6mjV0jEb3+ CI8nf7wpwa46kI52 dHI+OADcSCD8dMtqZYia LVUzuE0gQEyiJhI8IWMh MbIlyA19tVBzMAcxRt2z gYbntJzpQS8gEVId teojm079FdIoe9ycKOGw gYJvOAskARF4M10it3Y2 WLRbQIRzRCU5zGM3tU8t bGlnbjogbGVmdDsg ivQixLlwPEqlJDzcW620 YZAhcPebLwXqePPbJ5jm joEOGB5rZgvzdWP+PHRk WBX6iQfrAFneKCGd fL8mZZBsQ3j2JfMkHoO7 EGgsK8PywlP2ONHfpOJk TKUnqQBTlR5sgzimc9pm cjogIzAwMDAwMDt0 BGe2SEIlgGfvFrJdGTU0 FzP5NNT9aKVxdA1vaGpk sibjpF2lJsz+RklOOjwv dGQ+JOBfETO3sOxm TUlxAFTblE6gUOGeP2p5 BxWpAmX8KWejY9TbvkH4 KZSazWDjUKCqqMAWlZ8u otith6zsgolhEaHw TSXdBNk4CEq7JDGmoBtp MvJySZQ7DrY6VOK0mFTn fY1dsVwrswskqQ5vDkn+ TVJOOjwvdGQ+PHRk PEY0xQfmUIbjCAGnvZ6p TVOuC7g7GpHjJeO7ZYkp J1AnyuQ9SWNjvZZwSOGc vKVPpP0bujatq2da wbxaXhQqABWjHFf2MOf5 JASfpDltVcFsBGM9ZfQ4 FAV5wBNvcQ7ilPtnhfcn dN5kGmd+PEF2IAH1 XO31PT79J2JxNlbgkYGr bGU+PHRhYmxlIHdpZHRo KWsnNJPmGpJwlGblWJ5b Sz5iYGIxGAIzpYfx cHNl (more content not included)... Normal [facility] Consent for Treatmenton Consent for Treatment [id number] #1.00CD:127 Normal [facility] Discharge Instructionson Discharge Instructions [id number] 3#1.00CD:127 Normal [facility] ED Clinical Summaryon 2020 ED Clinical Summary [place] [id number] ED Clinical Summary Person Information Name: ZAINAB MCCLURE Johanna/[facility] Age: 25 Years : 1995 Sex: Female Language: Yakut PCP: ERIN SAMS CNP Marital Status: Single [...] 02/17/2021 11:52:53 02/17/2021 11:52:53 02/17/2021 11:52:53 ADDRESS: [address] [place] [id number] [facility] DOC NOTES: MEDICAL INFORMATION: Prescriptions Given: New Medications Printed Prescriptions lorazepam (Ativan 1 mg Tab) 1 Tablets By Mouth every 8 hours for 2 Days. Take one by mouth every eight hours as needed. Refills: 0. PATIENT EDUCATION INFORMATION: Instructions: Suicidal Feelings: How to Help Yourself; Managing Anxiety, Adult Follow up: With: Address: When: Located within [facility] In 1 day 02/18/2021 With: Address: When: ERIN SAMS [address] [place] [address] [phone] Business (1) In 3 days DIAGNOSIS: Anxiety; Suicidal ideation Normal [facility] ED Note-Physicianon 02-18-20 ED Note-Physician [...] Oral, q8hr Follow-up With When Contact Information Located within [facility] In 1 day 02/18/2021 EDT Additional Instructions: ERIN SAMS In 3 days [address], [place] [address]- [phone] Business (1) Additional Instructions: Patient Education Suicidal Feelings: How to Help Yourself Managing Anxiety, Adult Problem List/Past Medical History Ongoing No qualifying data Historical No qualifying data Medications Inpatient No active inpatient medications Home No active home medications Allergies No Known Medication Allergies Lab Results No qualifying data available. Diagnostic Results No qualifying data available. Normal [facility] Comment on above: Result Comment: Elec tronically Signed By: Vinicius Childers DO\.br\Date and Time Signed: 02/17/21 11:41 EDT ED [...] services (911 in the [place] ? The [facility] and [facility] services helpline (211 in the [place] ? Go to your nearest emergency department. ? Call a suicide hotline to speak with a trained counselor. The following suicide hotlines are available in the [place]: ? 5-134-511-TALK ( ). ? 4-273-AFBYBPV ( ). ? . This is a hotline for Israeli speakers. ? . This is a hotline for TTY users. ? 5-500-7-U-RAMILA ( ). This is a hotline for lesbian, escobar, bisexual, transgender, or questioning youth. ? For a list of hotlines in [place], visit www.suicide.org/hotl zeferino/international/c wvapm-fyoyrbq-ymifkf es.html ? Contact a crisis center or [...] list of crisis centers in [place], visit: suicideprevention.ia How to help yourself feel better ? [...] even if you do not feel sociable. Lmlr-wo-jred conversation is best to help them understand [...] can help you feel better. ? Take xcib-fmt-wkgwfnb and prescription medicines only as told by [...] Lifeline: www.suicidepreventio nlifeline.org ? Hopeline: www.hopeline.com ? [employer] for Suicide Prevention: www.afsp.org ? The Ramila Project (for lesbian, escobar, bisexual, transgender, or questioning youth): www.theDrewavan Coaching and Trainingvorproject .org Contact a health care provider if: ? You feel as though you are a burden to others. ? You feel agitated, angry, vengeful, or have extreme mood swings. ? You have withdrawn from family and friends. Get (more content not included)... Normal [facility] ED Patient Summaryon 021 ED Patient Summary [place] [id number] Patient Discharge Instructions Person Information Name: ZAINAB MCCLURE Age: 25 Years Arrival Date: 02/17/2021 09:42:11 Discharge Diagnosis: Anxiety; Suicidal ideation Primary Care Physician: ERIN SAMS CNP Provider Information Primary Provider: Vniicius Childers DO Advanced Fiberglass Insulation Installer:None The exam and treatment you received in the Emergency Department were for an urgent problem and are not intended as complete care. It is important that you follow up with a doctor, nurse practitioner, or physician?s assistant pastry chef for ongoing care. If your symptoms become worse or you do not improve as expected and you are unable to reach your usual health care provider, you should return to the Emergency Department. We are available 24 hours a day. ZAINAB MCCLURE has been given the following list of patient education materials, prescriptions and follow-up instructions: Follow-up Instructions: With: Address: When: Located within [facility] In 1 day 02/18/2021 With: Address: When: ERIN SAMS [address] [place] [address] [phone] [facility] (1) In 3 days In the event that this physician does not participate in your insurance network, please consult with your insurance company to find a nearby participating provider. Patient Education Materials: Suicidal Feelings: How to Help Yourself; Managing Anxiety, Adult A MESSAGE TO ALL PATIENTS REGARDING OPIOIDS PRESCRIPTION OPIOIDS: WHAT YOU NEED TO KNOW Prescription opioids can be used to help relieve jlqnifbi-fu-wtimqa pain and are often prescribed following a [...] health care professio (more content not included)... [facility] Valuables Checkliston 2020 Valuables Checklist [id number]#[id number]:[id number] [facility] Vital Signs Date Time Vital Sign Value Performing Clinician Facility 08-24-2023 10:09-0500 Body mass index (BMI) [Ratio] 32.44 kg/m2 [employer] Work Phone: [facility] 08-24-2023 10:09-0500 Body [facility].06 [facility] [employer] Work [facility] 08-24-2023 10:09-0500 Diastolic blood pressure 68 mm[Hg] [facility] DO Work Phone: [facility] 08-24-2023 10:09-0500 Systolic blood pressure 110 mm[Hg] [facility] Work Phone: [facility] 03-11-2023 09:53-0400 Body height 154.9 cm Farshad Vigil APRN-PROFESSIONAL WRESTLER Work Phone: [facility] 12-10-2022 12:07-0400 Body height 155.2 cm Suman Baker MD, PhD Work Phone: [facility] Comment on above: without shoes 12-10-2022 12:07-0400 Body mass index (BMI) [Ratio] 30.64 kg/m2 Suman Baker MD, PhD Work Phone: [facility] 12-10-2022 12:07-0400 Body temperature 97.81 [degF] Suman Baker MD, PhD Work Phone: [facility] 12-10-2022 12:07-0400 Body weight 73.8 kg Suman Baker MD, PhD Work Phone: [facility] Comment on above: without shoes 12-10-2022 12:07-0400 Diastolic blood pressure 72 mm[Hg] Suman Baker MD, PhD Work Phone: [facility] 12-10-2022 12:07-0400 Heart rate 77 /min Suman Baker MD, PhD Work Phone: [facility] 12-10-2022 12:07-0400 Respiratory rate 14 /min Suman Baker MD, PhD Work Phone: [facility] 12-10-2022 12:07-0400 SaO2% (BldA) [Mass fraction] 99 % Suman Baker MD, PhD Work Phone: [facility] Comment on above: room air 12-10-2022 12:07-0400 Systolic blood pressure 118 mm[Hg] Suman Baker MD, PhD Work Phone: [facility] 10-22-2022 13:57-0400 Body height 154.9 cm Chayo Suero MD Work Phone: [facility] 10-22-2022 13:57-0400 Body mass index (BMI) [Ratio] 30.33 kg/m2 Chayo Suero MD Work Phone: [facility] 10-22-2022 13:57-0400 Body temperature 97.59 [degF] Chayo Suero MD Work Phone: [facility] 10-22-2022 13:57-0400 Body weight 72.8 kg Chayo Suero MD Work Phone: [facility] 10-22-2022 13:57-0400 Diastolic blood pressure 62 mm[Hg] Chayo Suero MD Work Phone: [facility] 10-22-2022 13:57-0400 Heart rate 62 /min Chayo Suero MD Work Phone: [facility] 10-22-2022 13:57-0400 Respiratory rate 20 /min Chayo Suero MD Work Phone: [facility] 10-22-2022 13:57-0400 SaO2% (BldA) [Mass fraction] 99 % Chayo Suero MD Work Phone: [facility] 10-22-2022 13:57-0400 Systolic blood pressure 119 mm[Hg] Chayo Suero MD Work Phone: [facility] 10-22-2022 10:19-0400 Body height 157.5 cm Yudelka Moralez CAMPAIGN MANAGEMENT SENIOR MANAGER-PROFESSIONAL WRESTLER Work Phone: [facility] 10-22-2022 10:19-0400 Body mass index (BMI) [Ratio] 28.66 kg/m2 Yudelka Moralez CAMPAIGN MANAGEMENT SENIOR MANAGER-PROFESSIONAL WRESTLER Work Phone: [facility] 10-22-2022 10:19-0400 Body weight 71.1 kg Yudelka Moralez CAMPAIGN MANAGEMENT SENIOR MANAGER-PROFESSIONAL WRESTLER Work Phone: [facility] 10-22-2022 10:19-0400 Diastolic blood pressure 76 mm[Hg] Yudelka Moralez CAMPAIGN MANAGEMENT SENIOR MANAGER-PROFESSIONAL WRESTLER Work Phone: [facility] 10-22-2022 10:19-0400 Systolic blood pressure 126 mm[Hg] Yudelka Moralez CAMPAIGN MANAGEMENT SENIOR MANAGER-PROFESSIONAL WRESTLER Work Phone: [facility] 10-22-2022 07:38-0400 Body height 157.5 cm Yudelka Moralez CAMPAIGN MANAGEMENT SENIOR MANAGER-PROFESSIONAL WRESTLER Work Phone: [facility] 10-22-2022 07:38-0400 Diastolic blood pressure 76 mm[Hg] Yudelka Moralez CAMPAIGN MANAGEMENT SENIOR MANAGER-PROFESSIONAL WRESTLER Work Phone: [facility] 10-22-2022 07:38-0400 Heart rate 73 /min Yudelka Moralez CAMPAIGN MANAGEMENT SENIOR MANAGER-PROFESSIONAL WRESTLER Work Phone: [facility] 10-22-2022 07:38-0400 Systolic blood pressure 126 mm[Hg] Yudelka Moralez CAMPAIGN MANAGEMENT SENIOR MANAGER-PROFESSIONAL WRESTLER Work Phone: [facility] 10-07-2022 11:05-0400 Body height 157.5 cm Yudelka Moralez CAMPAIGN MANAGEMENT SENIOR MANAGER-PROFESSIONAL WRESTLER Work Phone: [facility] 10-07-2022 11:05-0400 Body mass index (BMI) [Ratio] 28.66 kg/m2 Yudelka Moralez CAMPAIGN MANAGEMENT SENIOR MANAGER-PROFESSIONAL WRESTLER Work Phone: [facility] 10-07-2022 11:05-0400 Body temperature 98.2 [degF] Yudelka Moralez CAMPAIGN MANAGEMENT SENIOR MANAGER-PROFESSIONAL WRESTLER Work Phone: [facility] 10-07-2022 11:05-0400 Body weight 71.08 kg Yudelka Moralez CAMPAIGN MANAGEMENT SENIOR MANAGER-PROFESSIONAL WRESTLER Work Phone: [facility] 10-07-2022 11:05-0400 Diastolic blood pressure 74 mm[Hg] Yudelka Moralez CAMPAIGN MANAGEMENT SENIOR MANAGER-PROFESSIONAL WRESTLER Work Phone: [facility] 10-07-2022 11:05-0400 Heart rate 81 /min Yudelka Moralez CAMPAIGN MANAGEMENT SENIOR MANAGER-PROFESSIONAL WRESTLER Work Phone: [facility] 10-07-2022 11:05-0400 Respiratory rate 16 /min Yudelka Moralez CAMPAIGN MANAGEMENT SENIOR MANAGER-PROFESSIONAL WRESTLER Work Phone: [facility] 10-07-2022 11:05-0400 SaO2% (BldA) [Mass fraction] 99 % Yudelka Moralez CAMPAIGN MANAGEMENT SENIOR MANAGER-PROFESSIONAL WRESTLER Work Phone: [facility] 10-07-2022 11:05-0400 Systolic blood pressure 120 mm[Hg] Yudelka Moralez CAMPAIGN MANAGEMENT SENIOR MANAGER-PROFESSIONAL WRESTLER Work Phone: [facility] 08-19-2022 15:43-0500 Diastolic blood pressure 88 mm[Hg] Andreas Ortega MD, MPH Work Phone: 2(538)205-311890 [place] [address] 08-19-2022 15:43-0500 Systolic blood pressure 117 mm[Hg] Andreas Ortega MD, MPH Work Phone: 6(554)129-200890 [place] [address] 07-08-2022 07:50-0500 Body height 157.5 cm Andreas Ortega MD, MPH Work Phone: 4(678)715-029590 [place] [address] 07-08-2022 07:50-0500 Body mass index (BMI) [Ratio] 28.73 kg/m2 Andreas Ortega MD, MPH Work Phone: 1(347)987-693590 [place] [address] 07-08-2022 07:50-0500 Body temperature 98.01 [degF] Andreas Ortega MD, MPH Work Phone: 5(027)488-710290 [place] [address] 07-08-2022 07:50-0500 Body weight 71.26 kg Andreas Ortega MD, MPH Work Phone: 9(169)571-020490 [place] [address] 07-08-2022 07:50-0500 Diastolic blood pressure 77 mm[Hg] Andreas Ortega MD, MPH Work Phone: 4(751)259-738690 [place] [address] 07-08-2022 07:50-0500 Heart rate 73 /min Andreas Ortega MD, MPH Work Phone: 0(045)132-045090 [place] [address] 07-08-2022 07:50-0500 Respiratory rate 16 /min Andreas Ortega MD, MPH Work Phone: 0(945)275-429290 [place] [address] 07-08-2022 07:50-0500 SaO2% (BldA) [Mass fraction] 98 % Andreas Ortega MD, MPH Work Phone: 5(104)677-945490 [place] [address] 07-08-2022 07:50-0500 Systolic blood pressure 121 mm[Hg] Andreas Ortega MD, MPH Work Phone: 9(904)342-713810 [place] [address] Center 06-09-2022 13:10-0500 Body mass index (BMI) [Ratio] 29.3 kg/m2 [facility] Work Phone: [facility] 06-09-2022 13:10-0500 Body temperature 98.6 [degF] [facility] Work Phone: [facility] 06-09-2022 13:10-0500 Body weight 72.67 [facility] Work Phone: [facility] 06-09-2022 13:10-0500 Diastolic blood pressure 60 mm[Hg] [facility] Work Phone: [facility] 06-09-2022 13:10-0500 Heart rate 80 /min [facility] Work Phone: 9(524)433-453035 [address] 06-09-2022 13:10-0500 Respiratory rate 16 /min [facility] Work Phone: [facility] 06-09-2022 13:10-0500 SaO2% (BldA) [Mass fraction] 98 % [facility] Work Phone: [facility] 06-09-2022 13:10-0500 Systolic blood pressure 110 mm[Hg] [facility] Work Phone: [facility] 05-29-2022 07:32-0500 Body temperature 98.01 [degF] Suman Baker MD, PhD Work Phone: [facility] 05-29-2022 07:32-0500 Diastolic blood pressure 64 mm[Hg] Suman Baker MD, PhD Work Phone: [facility] 05-29-2022 07:32-0500 Heart rate 77 /min Suman Baker MD, PhD Work Phone: [facility] 05-29-2022 07:32-0500 Respiratory rate 16 /min Suman Baker MD, PhD Work Phone: [facility] 05-29-2022 07:32-0500 SaO2% (BldA) [Mass fraction] 99 % Suman Baker MD, PhD Work Phone: [facility] 05-29-2022 07:32-0500 Systolic blood pressure 100 mm[Hg] Suman Baker MD, PhD Work Phone: [facility] 05-22-2022 15:50-0400 Body height 157.5 cm Suman Baker MD, PhD Work Phone: [facility] 05-22-2022 15:50-0400 Body mass index (BMI) [Ratio] 30.73 kg/m2 Suman Baker MD, PhD Work Phone: [facility] 05-22-2022 15:50-0400 Body weight 76.2 kg Suman Baker MD, PhD Work Phone: [facility] 03-31-2022 12:02-0400 Diastolic blood pressure 70 mm[Hg] Carlos Gomes CAMPAIGN MANAGEMENT SENIOR MANAGER-PROFESSIONAL WRESTLER Work Phone: [facility] 03-31-2022 12:02-0400 Systolic blood pressure 124 mm[Hg] Carlos Gomes CAMPAIGN MANAGEMENT SENIOR MANAGER-PROFESSIONAL WRESTLER Work Phone: [facility] 03-31-2022 11:53-0400 Body height 157.5 cm Carlos Gomes CAMPAIGN MANAGEMENT SENIOR MANAGER-PROFESSIONAL WRESTLER Work Phone: [facility] 03-19-2022 15:37-0400 Body height 158.3 cm Suman Baker MD, PhD Work Phone: [facility] 03-19-2022 15:37-0400 Body mass index (BMI) [Ratio] 30.63 kg/m2 Suman Baker MD, PhD Work Phone: [facility] 03-19-2022 15:37-0400 Body temperature 97.5 [degF] Suman Baker MD, PhD Work Phone: [facility] 03-19-2022 15:37-0400 Body weight 76.75 kg Suman Baker MD, PhD Work Phone: [facility] 03-19-2022 15:37-0400 Diastolic blood pressure 84 mm[Hg] Suman Baker MD, PhD Work Phone: [facility] 03-19-2022 15:37-0400 Heart rate 90 /min Suman Baker MD, PhD Work Phone: [facility] 03-19-2022 15:37-0400 Respiratory rate 16 /min Suman Baker MD, PhD Work Phone: [facility] 03-19-2022 15:37-0400 SaO2% (BldA) [Mass fraction] 98 % Suman Baker MD, PhD Work Phone: [facility] 03-19-2022 15:37-0400 Systolic blood pressure 128 mm[Hg] Suman Baker MD, PhD Work Phone: [facility] 12-22-2021 18:05-0400 Body height 152.4 cm Ava Tamika Other [employer] Other 12-22-2021 18:05-0400 Body mass index (BMI) [Ratio] 30.62 kg/m2 Ava Tamika Other [employer] Other 12-22-2021 18:05-0400 Body temperature 99 [degF] Ava Tamika Other [employer] Other 12-22-2021 18:05-0400 Body weight 71.12 kg Ava Tamika Other [employer] Other 12-22-2021 18:05-0400 Diastolic blood pressure 89 mm[Hg] Ava Lundberg Other [employer] Other 12-22-2021 18:05-0400 Respiratory rate 16 /min Ava Lundberg Other [employer] Other 12-22-2021 18:05-0400 SaO2% (BldA) [Mass fraction] 99 % Ava Lundberg Other [employer] Other 12-22-2021 18:05-0400 Systolic blood pressure 129 mm[Hg] Ava Lundberg Other [employer] Other Encounters Encounter Date Encounter Type Care Provider Facility Start: 08-24-2023 End: 08-24-2023 ambulatory RON ALDEN Not Available Start: 08-24-2023 End: 08-24-2023 flow sheet Ron Alden DO Work Phone: [facility] Comment on above: Third trimester preg lavonne Start: 08-09-2023 End: 08-09-2023 ambulatory LIZBET CAST Not Available Start: 07-14-2023 End: 07-14-2023 ambulatory RON ALDEN Not Available Start: 06-01-2023 End: 06-01-2023 ambulatory RON ALDEN Not Available Start: 04-06-2023 ambulatory ERIN S LATRELL Facilit y:[facility] Start: 03-17-2023 ambulatory ERIN S LATRELL Facilit y:[facility] Start: 03-11-2023 ambulatory ERIN S LATRELL Facilit y:[facility] Start: 03-11-2023 End: 03-11-2023 Clinical Support Encounter Suman Baker MD, PhD Work Phone: [facility] 1 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 Start: 03-11-2023 ambulatory ERIN S LATRELL Facilit y:[facility] Start: 03-11-2023 End: 03-11-2023 Subsequent hospital visit by physician Farshad Vigil CAMPAIGN MANAGEMENT SENIOR MANAGER-PROFESSIONAL WRESTLER Work Phone: [facility] Comment on above: Arrived Start: 01-04-2023 ambulatory ERIN SAMS Facility: [facility] Start: 12-16-2022 ambulatory ERINSHAVON SAMS Facility: [facility] Start: 12-10-2022 End: 12-10-2022 Office outpatient visit 15 minutes Suman Baker MD, PhD Work Phone: Division of Surgical Oncology 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) Start: 12-10-2022 ambulatory CARLOS LYMAN Facility :[facility] Start: 11-30-2022 End: 11-30-2022 ambulatory ERINSHAVON SAMS Facility: Start: 10-27-2022 ambulatory CHEIKH COELHO Facility :[facility] Start: 10-27-2022 ambulatory ERIN STONER Facility :[facility] Start: 10-22-2022 ambulatory ANDREAS JORDAN Facility: [facility] Start: 10-22-2022 End: 10-22-2022 Office outpatient new 60 minutes Chayo Suero MD Work Phone: [facility] Comment on above: Fibromyalgia muscle pain (Primary Dx) Start: 10-22-2022 ambulatory YUDELKA MORALEZ Facility:[facility] Start: 10-22-2022 End: 10-22-2022 Subsequent hospital visit by physician Yudelka Moralez CAMPAIGN MANAGEMENT SENIOR MANAGER-PROFESSIONAL WRESTLER Work Phone: [facility] [place] Start: 10-22-2022 ambulatory YUDELKA MORALEZ Facility:[facility] Start: 10-22-2022 End: 10-22-2022 Subsequent hospital visit by physician Yudelka Moralez CAMPAIGN MANAGEMENT SENIOR MANAGER-PROFESSIONAL WRESTLER Work Phone: [facility] [place] Comment on above: Arrived Start: 10-21-2022 ambulatory YUDELKA MORALEZ Facility:[facility] Start: 10-07-2022 ambulatory ANDREAS ORTEGA Facility: [facility] Start: 10-07-2022 End: 10-07-2022 Office outpatient visit 25 minutes Yudelka Moralez CAMPAIGN MANAGEMENT SENIOR MANAGER-PROFESSIONAL WRESTLER Work Phone: Division of Medical Oncology Comment [...] medical examination without abnormal findings ERIN SAMS [facility] Start: 08-31-2022 End: 09-01-2022 ambulatory ERIN SAMS Facility:[facility] Start: 08-31-2022 End: 09-01-2022 Encounter for general adult medical examination without abnormal findings ERIN SAMS Facility:[facility] Start: 08-26-2022 ambulatory ANDREAS ORTEGA Facility: [facility] Start: 08-24-2022 End: 08-25-[address] DOCTOR GREGORY Facility:[facility] Start: 08-19-2022 ambulatory ANDREAS ORTEGA Facility: [facility] Start: 08-19-2022 End: 08-19-2022 Subsequent hospital visit by physician Andreas Ortega MD, MPH Work Phone: Department of Radiology Comment on above: Arrived Start: 08-19-2022 ambulatory YUDELKA MORALEZ Facility:[facility] Start: 08-19-2022 End: 08-19-2022 Subsequent hospital visit by physician Yudelka Moralez APRN-PROFESSIONAL WRESTLER Work Phone: Imaging [facility] Comment on above: Arrived Start: 08-12-2022 End: 08-12-2022 ambulatory ERIN SAMS Facility:[facility] Start: 08-05-2022 End: 08-05-2022 ambulatory ERIN SAMS Facility:[facility] Start: 07-08-2022 ambulatory SELF SELF Facility:[facility] Start: 07-08-2022 End: 07-08-2022 Office consultation new/estab patient 80 min Andreas Ortega MD, MPH Work Phone: Division of Medical Oncology 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) Start: 07-06-2022 ambulatory SELF SELF Facility:[facility] Start: 06-09-2022 ambulatory SELF SELF Facility:[facility] Start: 06-09-2022 End: 06-09-2022 Postop follow up visit related to original px Carlos Gomes APRN-PROFESSIONAL WRESTLER Work Phone: Division of Surgical Oncology 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 Facility:[facility] Start: 04-06-2022 Encounter for preprocedural laboratory examination DR TIMMY HALL . 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) Start: 02-19-2022 Telephone encounter Intestinal Trans Coord Main Work Phone: Transplant Center Comment on above: Referral Request Start: 02-03-2022 End: 02-04-2022 ambulatory ERIN SAMS Facility: Start: 12-22-2021 End: 12-22-2021 ambulatory Ava Lundberg Other [facility] Other Start: 12-22-2021 Office outpatient vi sit 15 minutes Ava Lundberg [facility] Procedures Date Procedure Procedure Detail Performing Clinician Start: 03-11-2023 Mri abdomen w/o cont rast material Yudelka Moralez CAMPAIGN MANAGEMENT SENIOR MANAGER-PROFESSIONAL WRESTLER Work Phone: Start: 10-22-2022 Echo tthrc r-t 2d w/wom-mode compl spec&colr d Yudelka Moralez CAMPAIGN MANAGEMENT SENIOR MANAGER-PROFESSIONAL WRESTLER Work Phone: Start: 10-22-2022 Ct soft tissue neck w/contrast material Yudelka Moralez CAMPAIGN MANAGEMENT SENIOR MANAGER-PROFESSIONAL WRESTLER Work Phone: Start: 10-22-2022 Ct thorax w/contrast material Yudelka Moralez CAMPAIGN MANAGEMENT SENIOR MANAGER-PROFESSIONAL WRESTLER Work Phone: Start: 10-07-2022 Natriuretic peptide Yudelka Moralez CAMPAIGN MANAGEMENT SENIOR MANAGER-PROFESSIONAL WRESTLER Work Phone: Start: 08-19-2022 Creatinine blood Marciano Ortega MD, MPH Work Phone: Start: 08-19-[address] atten uation skull base mid-thigh Yudelka Moralez CAMPAIGN MANAGEMENT SENIOR MANAGER-PROFESSIONAL WRESTLER Work Phone: Start: 05-29-2022 Assay of magnesium [...] [facility] Other Other Start: 05-22-2022 Bilirubin direct José Arnold MD Work Phone: Start: 05-22-2022 Calcium ionized Suman Baker MD, PhD Work Phone: Start: 05-22-2022 CONTINUOUS CARDIAC MONITORING [facility] Other Other Start: 05-22-2022 End: 05-22-2022 Antibody screen Suman Baker MD, PhD Work Phone: Comment on above: Performed By: #### C A, IPB, CHM7, MGO #### [facility] [facility] ([facility]) [address] [place] [address] Start: 05-22-2022 Calcium ionized Suman Baker MD, [...] TO TRANSFUSE OR RED BLOOD CELLS Liza M Amelia HAZEL Work Phone: Start: 05-22-2022 Gonadotropin chorion ic qualitative Suman Baker MD, PhD Work Phone: Start: 03-31-2022 Ct thorax w/contrast material Carlos N [employer] Work Phone: Start: 03-19-2022 CBC AND ELECTRONIC DIFF Carlos N [employer] Work Phone: Start: 03-19-2022 Complete blood count with white cell differential, automated Carlos N [employer] Work Phone: Start: 03-19-2022 Comprehensive metabo lic panel Carlos Kelly [employer] Work Phone: Plan of Treatment Date Care Activity Detail Author Start: 10-28-2023 End: 10-28-2023 Patient encounter procedure 10/28/2023 1:00 PM EDT Office Visit [facility] [place] [address] [place] [address] Kelton Cabrera Jr., MD [address] [place] [address] General and Gastro[facility] [place] Start: 09-08-2023 End: 09-08-2023 Patient encounter procedure 09/08/2023 10:40 AM EST Routine [facility] [address] [facility] [place] [place] [id number] Ron Ruano, DO [address] [place] [address] [facility] Start: 06-17-2023 End: 06-17-2023 Patient encounter procedure 06/17/2023 1:30 PM EST Office Visit Division of Surgical Oncology [address] [place] [address] Suman Baker MD, PhD [address] [place] [id number] Division of Surgical Oncology Start: 06-17-2023 End: 06-17-2023 Patient encounter procedure 06/17/2023 12:20 PM EST Appointment Imaging [facility] [address] [facility] [address] [place] [phone] Suman Baker MD, PhD [address] [place] [address] Imaging [facility] Start: 03-19-2023 Influenza vaccination [facility] Start: 03-17-2023 End: 03-17-2023 Patient encounter procedure Division of Medical Oncology Start: 03-11-2023 End: 03-11-2023 Patient encounter procedure 03/11/2023 Office Visit Surgical Oncology Suman Baker MD, PhD [address] [place] [address] Division of Surgical Oncology Start: 03-11-2023 End: 03-11-2023 Patient encounter procedure Imaging Outpatient [facility] Start: 12-22-2022 End: 12-22-2022 Patient encounter procedure 12/22/2022 Office Visit Cardiovascular Medicine Marisela Velásquez, CAMPAIGN MANAGEMENT SENIOR MANAGER-PROFESSIONAL WRESTLER [address] [place] [address] Cardiology [facility] 5 Start: 12-17-2022 End: 12-17-2022 Patient encounter procedure 12/17/2022 Office Visit Oncology Andreas Ortgea MD, MPH [address] [place] [address] Division of Medical Oncology Start: 12-10-2022 End: 12-11-2023 CT Abdomen and Pelvis W contrast IV CT ABDOMEN/PELVIS WITH CONTRAST Imaging Routine Primary malignant neuroendocrine tumor of appendix Expected: 12/10/2022, Expires: 12/11/2023 [facility] Comment on above: Expected: 12/10/2022, Expires: 4 Start: 12-10-2022 End: 12-11-2023 CT Chest W contrast IV CT CHEST WITH CONTRAST Imaging Routine Primary malignant neuroendocrine tumor of appendix Expected: 12/10/2022, Expires: 12/11/2023 [facility] Comment on above: Expected: 12/10/2022, Expires: 4 Start: 12-10-2022 End: 12-10-2022 Patient encounter procedure Imaging [facility] Start: 12-07-2022 End: 06-09-2023 CT Abdomen and Pelvis W contrast IV CT ABDOMEN/PELVIS WITH CONTRAST Imaging Routine Primary malignant neuroendocrine tumor of appendix Expected: 12/07/2022, Expires: 06/09/2023 [facility] Comment on above: Expected: 12/07/2022, Expires: 3 Start: 11-05-2022 End: 11-05-2022 Patient encounter procedure 11/05/2022 Office Visit Oncology Andreas Ortega MD, MPH [address] [place] [address] Division of Medical Oncology Start: 10-27-2022 End: 10-27-2022 Patient encounter procedure 10/27/2022 Office Visit Cardiovascular Medicine Cheikh Coelho MD [address] [place] [address] Cardiology [facility] 5 Start: 10-27-2022 End: 10-27-2022 ambulatory 10/27/2022 Telemed Clin Support Genetics Erin Stoner, [facility] [address] [place] [address] Division of Human Genetics Start: 10-21-2022 Subsequent hospital visit by physician 10/21/2022 Hospital Encounter Computerized Tomography Scan Yudelka Moralez APRN-PROFESSIONAL WRESTLER [address] [place] [address] [facility] [place] Start: 10-21-2022 End: 10-21-2022 Patient encounter procedure 10/21/2022 Appointment Echocardiography Yudelka Moralez APRN-PROFESSIONAL WRESTLER [address] [place] [address] Heart [facility] [place] Start: 10-07-2022 End: 10-08-2023 CT Chest W contrast IV CT CHEST WITH CONTRAST Imaging Routine Carcinoid syndrome SOB (shortness of breath) Tachycardia Primary malignant neuroendocrine tumor of appendix Expected: 10/07/2022, Expires: 10/08/2023 [facility] Comment on above: Expected: 10/07/2022, Expires: 4 Start: 10-07-2022 End: 10-08-2023 CT Neck W contrast IV CT NECK WITH CONTRAST Imaging Routine Primary malignant neuroendocrine tumor of appendix Expected: 10/07/2022, Expires: 10/08/2023 [facility] Comment on above: Expected: 10/07/2022, Expires: 4 Start: 08-26-2022 End: 08-26-2022 Telemedicine consultation with patient 08/26/2022 Telemedicine Oncology Andreas Ortega MD, MPH [address] [facility] [address] [place] [address] Division of Medical Oncology Start: 08-19-2022 End: 08-19-2022 Patient encounter procedure Imaging [facility] Start: 07-08-2022 End: 07-08-2023 Complete blood count with white cell differential, automated CBC, EDIF, PLATELET Lab Routine Primary malignant neuroendocrine tumor of appendix Expected: 07/08/2022, Expires: 07/08/2023 [facility] Comment on above: Expected: 07/08/2022, Expires: 3 Start: 07-08-2022 End: 07-08-2023 Comprehensive metabolic 2000 panel - Serum or Plasma COMPREHENSIVE METABOLIC PANEL Lab Routine Primary malignant neuroendocrine tumor of appendix Expected: 07/08/2022, Expires: 07/08/2023 [facility] Comment on above: Expected: 07/08/2022, Expires: 3 Start: 07-08-2022 End: 07-08-2023 CT Abdomen and Pelvis WO and W contrast IV CT ABDOMEN/PELVIS WITH AND WITHOUT CONTRAST Imaging Routine Primary malignant neuroendocrine tumor of appendix Expected: 07/08/2022, Expires: 07/08/2023 [facility] Comment on above: Expected: 07/08/2022, Expires: 3 Start: 07-08-2022 End: 07-08-2023 Lactate dehydrogenase [Enzymatic activity/volume] in Serum or Plasma LACTATE DEHYDROGENASE Lab Routine Primary malignant neuroendocrine tumor of appendix Expected: 07/08/2022, Expires: 07/08/2023 [facility] Comment on above: Expected: 07/08/2022, Expires: 3 Start: 07-08-2022 End: 07-08-2023 PT Skull base to mid-thigh NUC PET NEUROENDOCRINE Imaging Routine Primary malignant neuroendocrine tumor of appendix Expected: 07/08/2022, Expires: 07/08/2023 [facility] Comment on above: Expected: 07/08/2022, Expires: 3 Start: 07-08-2022 End: 07-08-2022 Patient encounter procedure 07/08/2022 Office Visit Oncology Andreas Ortega MD, MPH [address] [place] [address] Division of Medical Oncology Start: 07-06-2022 End: 07-06-2022 Telemedicine consultation with patient 07/06/2022 Telemedicine Surgical Oncology Carlos Gomes, CAMPAIGN MANAGEMENT SENIOR MANAGER-PROFESSIONAL WRESTLER [address] [place] [address] [facility] Start: 06-09-2022 End: 06-09-2022 Patient encounter procedure 06/09/2022 Office Visit Surgical Oncology Carlos Gomes, CAMPAIGN MANAGEMENT SENIOR MANAGER-PROFESSIONAL WRESTLER [address] [place], [place] [phone] Division of Surgical Oncology Start: 04-21-2022 End: 04-21-2022 Evaluation and management of inpatient 04/21/2022 Surgery Multispecialty Suman Baker MD, PhD [address] [place] [address] COLECTOMY PARTIAL LAPAROSCOPIC [facility]CT [facility] Comment on above: COLECTOMY PARTIAL LAPAROSCOPIC Start: 04-21-2022 End: 04-21-2022 Laparoscopy colectomy partial w/anastomosis COLECTOMY PARTIAL LAPAROSCOPIC Primary malignant neuroendocrine tumor of appendix 04/21/2022 7:15 AM EDT [facility] Start: 04-21-2022 Evaluation and management of inpatient 04/21/2022 Hospital Encounter Multispecialty Suman Baker MD, PhD [address] [place] [address] Primary malignant neuroendocrine tumor of appendix [facility] Comment on above: Primary malignant neuroendocrine tumor o f appendix Start: 03-19-2022 End: 03-19-2023 Colonoscopy flx dx w/collj spec when pfrmd DIAGNOSTIC COLONOSCOPY GI/Bronch STAT Primary malignant neuroendocrine tumor of appendix Expected: 03/19/2022, Expires: 03/19/2023 [facility] Comment on above: Expected: 03/19/2022, Expires: Start: 03-19-2022 Influenza vaccination INFLUENZA VACCINE (#1) [facility] Start: 03-19-2022 End: 03-19-2023 TYPE AND SCREEN - PREADMISSION TYPE AND SCREEN - PREADMISSION Blood Bank Routine Primary malignant neuroendocrine tumor of appendix Expected: 03/19/2022, Expires: 03/19/2023 [facility] Work Phone: Comment on above: Expected: 03/19/2022, Expires: 3 Start: 07-10-2021 COVID-19 VACCINE (2 - Pfizer risk series) COVID-19 VACCINE (2 - Pfizer risk series) [facility] Start: 07-10-2021 COVID-19 VACCINE (2 - Pfizer series) COVID-19 VACCINE (2 - Pfizer series) [facility] Start: 08-14-2020 Tetanus vaccination TETANUS [facility] Start: 2018 Screening for malignant neoplasm of cervix CERVICAL CANCER SCREENING DISCUSSION [facility] Start: 2016 Third diphtheria, tetanus and acellular pertussis (DTaP) vaccination TDAP (ADULT) [facility] Start: 2016 Zoster vaccine hzv live for subcutaneous use ZOSTER (SHINGLES) VACCINE (1 of 2) [facility] Start: 2015 Tetanus vaccination TETANUS [facility] Start: 2013 Screening for Chlamydia trachomatis CHLAMYDIA SCREEN [facility] Start: 2012 HIV screening HIV SCREENING DISCUSSION [facility] Start: 02-11-2011 Vaccination for human papillomavirus HPV VACCINE ADOL (2 - 2-dose series) [facility] Start: 09-11-2010 Vaccination for human papillomavirus HPV VACCINE ADOL (2 - Risk 3-dose series) [facility] Start: 2008 Vaccination for human papillomavirus HPV VACCINE ADOL (1 - 2-dose series) [facility] Start: 2003 PNEUMOCOCCAL VACCINE SERIES (1 - PCV) PNEUMOCOCCAL VACCINE SERIES (1 - PCV) [facility] Start: 1997 GONORRHEA SCREEN GONORRHEA SCREEN [facility] Start: 1997 Hepatitis C antibody, confirmatory test HEPATITIS C VIRUS SCREENING [facility] Start: 1997 Hepatitis C screening HEPATITIS C VIRUS SCREENING [facility] Start: 1997 Screening for Chlamydia trachomatis GONORRHEA SCREEN [facility] CHROMOGRANIN A CHROMOGRANIN A L ab Routine Primary malignant neuroendocrine tumor of appendix 03/11/2023 11:44 AM EDT [facility] Work Phone: End: 03-31-2022 CT Abdomen and Pelvis W contrast IV [facility] Work Phone: Comment on above: 1 Occurrences starting 03/31/2022 until 03/31/2022 End: 08-14-2022 CT Abdomen and Pelvis WO and W contrast IV [facility] Work Phone: Comment on above: 1 Occurrences starting 08/14/2022 until 08/14/2022 Ecg routine ecg w/le ast 12 lds trcg only w/o i&r DC ECG, TRACING ONLY DC - OFFICE PERFORMED Routine Primary malignant neuroendocrine tumor of appendix Ordered: 03/19/2022 [facility] Comment on above: Ordered: 03/19/2022 Echocardiography ECHOCARDIOGRAM Echocardiography Routine Carcinoid syndrome SOB (shortness of breath) Tachycardia Ordered: 10/07/2022 [facility] Comment on above: Ordered: 10/07/2022 Laparoscopy colectom y partial w/anastomosis COLECTOMY PARTIAL LAPAROSCOPIC Primary malignant neuroendocrine tumor of appendix [facility] End: 03-09-2023 Magnetic resonance imaging of abdomen and pelvis with contrast MRI ABDOMEN/PELVIS WITHOUT AND WITH CONTRAST Imaging Routine Primary malignant neuroendocrine tumor of appendix 1 Occurrences starting 03/09/2023 until 03/09/2023 [facility] Comment on above: 1 Occurrences starting 03/09/2023 until 03/09/2023 Removal of kike DC STAPLE REM OVAL DC - OFFICE PERFORMED Routine Primary malignant neuroendocrine tumor of appendix Ordered: 06/09/2022 [facility] Comment on above: Ordered: 06/09/2022 SURG PATH REQUEST [facility] Comment on above: Release Upon Ordering for 1 Occurrences starting 05/22/2022, 1 completed Immunizations Immunization Date Immunization Notes Care Provider Chhaya dhillon 04-28-2021 influenza virus vaccine, unspecified formulation Carlos Gomes APRN-PROFESSIONAL WRESTLER Work Phone: [facility] Payers Date Payer Category Payer Unknown [id number] 2021 Managed Care HMO (unspecified) PARAMOUNT HMO PAR[employer]OUNT HMO [id number] 2021-Present [address] [place] [address] HMO [id number] 2021 Unknown [employer]OUNT NELIDA [employer] PREFERRED PPO [id number] 2021-Present [phone] [address] [place] [address] PPO [id number] 1997 Unknown [id number] 2.16.840.1.585906.3.579.2 .593 1997 Unknown [id number] 2.16.840.1.623617.3.579.2 .593 1997 Unknown [id number] 2.16.840.1.800316.3.579.2 .593 1997 Unknown [id number] 2.16.840.1.998932.3.579.2 .593 1997 Unknown [id number] 2.16.840.1.737626.3.579.2 .593 1997 Unknown [id number] 2.16.840.1.355393.3.579.2 .593 1997 Unknown [id number] 2.16.840.1.745244.3.579.2 .593 1997 Unknown [id number] 2.16.840.1.335987.3.579.2 .593 1997 Unknown [id number] 2.16.840.1.712180.3.579.2 .593 1997 Unknown [id number] 2.16.840.1.588722.3.579.2 .593 1997 Unknown [id number] 2.16.840.1.153289.3.579.2 .593 1997 Unknown [id number] 2.16.840.1.039288.3.579.2 .593 1997 Unknown [id number] 2.16.840.1.093877.3.579.2 .593 1997 Unknown [id number] 2.16.840.1.189194.3.579.2 .593 1997 Unknown [id number] 2.16.840.1.232699.3.579.2 .593 1997 Unknown [id number] 2.16.840.1.793977.3.579.2 .593 1997 Unknown [id number] 2.16.840.1.884146.3.579.2 .593 1997 Unknown [id number] 2.16.840.1.271510.3.579.2 .594 1997 Unknown [id number] 2.16.840.1.045677.3.579.2 .594 1997 Unknown [id number] 2.16.840.1.426054.3.579.2 .594 1997 Unknown [id number] 2.16.840.1.177556.3.579.2 .594 1997 Unknown [id number] 2.16.840.1.047168.3.579.2 .594 1997 Unknown [id number] 2.16.840.1.530807.3.579.2 .594 1997 Unknown [id number] 2.16.840.1.017169.3.579.2 .594 1997 Unknown [id number] 2.16.840.1.447238.3.579.2 .594 1997 Unknown [id number] 2.16.840.1.297410.3.579.2 .594 1997 Unknown [id number] 2.16.840.1.491282.3.579.2 .594 1997 Unknown [id number] 2.16.840.1.922256.3.579.2 .594 1997 Unknown [id number] 2.16.840.1.991166.3.579.2 .594 1997 Unknown [id number] 2.16.840.1.664411.3.579.2 .594 1997 Unknown [id number] 2.16.840.1.677070.3.579.2 .594 1997 Unknown [id number] 2.16.840.1.974369.3.579.2 .594 1997 Unknown [id number] 2.16.840.1.224577.3.579.2 .594 1997 Unknown [id number] 2.16840.1.035735.3.579.2 .594 1997 Unknown [id number] 2.16.840.1.592768.3.579.2 .594 1997 Unknown [id number] 2.16.840.1.754287.3.579.2 .594 1997 Unknown [id number] 2.16.840.1.569178.3.579.2 .594 1997 Unknown [id number] 2.16.840.1.921570.3.579.2 .594 1997 Unknown [id number] 2.16.840.1.181629.3.579.2 .594 1997 Unknown [id number] 2.16.840.1.345699.3.579.2 .594 1997 Unknown [id number] 2.16.840.1.852386.3.579.2 .594 1997 Unknown [id number] 2.16.840.1.249890.3.579.2 .594 1997 Unknown [id number] 2.16.840.1.199931.3.579.2 .594 1997 Unknown [id number] 2.16.840.1.692706.3.579.2 .594 1997 Unknown [id number] 2.16.840.1.454628.3.579.2 .594 1997 Unknown [id number] 2.16.840.1.037649.3.579.2 .1259 1997 Unknown [id number] 2.16.840.1.011367.3.579.2 .1259 1997 Unknown [id number] 2.16.840.1.189114.3.579.2 .1259 1997 Unknown [id number] 2.16.840.1.423663.3.579.2 .1259 1959 Unknown [id number] Unknown [id number] 2.16.840.1.399633.19 Social History Date Type Detail Facility Unknown if ever smoked [facility] Other Start: 12-16-2022 End: 03-11-2023 Sex Assigned At [facility] Tobacco smoking stat us FLIS Tobacco smoking consumption unknown [facility] Work Phone: Start: 1997 Sex Assigned At Not on file [facility] Start: 03-19-2022 End: 04-14-2022 Tobacco smoking status FLIS Never smoked tobacco [facility] Start: 03-31-2022 End: 03-11-2023 Alcohol intake Ex-drinker (finding) [facility] Start: 03-19-2022 History SDOH Alcohol Comment last alchohol 2019; mixed drink rarely [facility] Start: 04-14-2022 Tobacco use and exposure Smokeless tobacco non-user [facility] Start: 05-12-2022 End: 08-19-2022 Exposure to SARS-CoV-2 (event) Not sure [facility] Start: 06-28-2022 End: 07-08-2022 Exposure to SARS-CoV-2 (event) Unable to assess [facility] Start: 12-16-2022 End: 03-11-2023 History of Social function [facility] Adolescent depressio n screening assessment 1 [facility] Start: 01-12-2023 [facility] Start: 1995 Sex Assigned At Female [facility] Start: 01-25-2023 Gender identity Identifies as female gender (finding) [facility] Start: 01-25-2023 Sexual orientation Heterosexual (finding) [facility] Goals Date Patient Goal Desired Activity /State Personal health goal Clinical Notes 12-22-2021 to 08-24-2023 Ron Ruano DO 08/24/2023 10:10 AM Kailey Blunt, [facility] 12/10/2022 12:30 PM Malathi Vigil, [facility] 12/10/2022 12:30 PM EDTPatient InstructionsPatient InstructionsAttachments Note Date & Type Note Facility 08-24-2023 History of Present illness Narrative Reason for Appointment: Patient ID: Zainab Swift is a 28 y.o. female who presents for Routine Visit Patient presents today for Return OB appointment. Current Medications: has a current medication list which includes the following prescription(s): acetaminophen, fluoxetine, metoclopramide, omeprazole, ondansetron odt, and mv-min-fe fum-fa-dha. Medical History: Active Ambulatory Problems Diagnosis Date Noted No Active Ambulatory Problems Resolved Ambulatory Problems Diagnosis Date Noted No Resolved Ambulatory Problems Past Medical History: Diagnosis Date Anxiety Cancer (CMS/HCC) Depression (CMS/HCC) Personality disorder (CMS/HCC) Family History Problem Relation Name Age of Onset Breast cancer Mother's Sister Social History Tobacco Use Smoking status: Not on file Smokeless tobacco: Not on file Substance Use Topics Alcohol use: Not on file Drug use: Not on file Past Surgical History: Procedure Laterality Date APPENDECTOMY CHOLECYSTECTOMY HEMICOLOECTOMY W/ ANASTOMOSIS OMENTECTOMY Partial SMALL INTESTINE SURGERY Had some of it removed. Allergies Allergen Reactions Gabapentin Diarrhea and Nausea Only Review of Systems: Review of Systems Constitutional: Negative. HENT: Negative. Eyes: Negative. Respiratory: Negative. Cardiovascular: Negative. Gastrointestinal: Negative. Genitourinary: Negative. Musculoskeletal: Negative. Skin: Negative. Neurological: Negative. All other systems reviewed and are negative. Hematological: Negative. Endocrine: Negative. Allergic/Immunologic: Negative. Objective Physical Exam Constitutional: Appearance: Normal appearance. She is well-developed. Cardiovascular: Rate and Rhythm: Normal rate and regular rhythm. Pulmonary: Effort: Pulmonary effort is normal. Breath sounds: Normal breath sounds. Abdominal: General: Bowel sounds are normal. There is no distension. Palpations: Abdomen is soft. Tenderness: There is no abdominal tenderness. There is no guarding or rebound. Musculoskeletal: General: No swelling. Normal range of motion. Right lower leg: No edema. Left lower leg: No edema. Neurological: Mental Status: She is alert and oriented to person, place, and time. Skin: General: Skin is warm and dry. Psychiatric: Mood and Affect: Mood normal. Behavior: Behavior normal. Vitals and nursing note reviewed. Exam conducted with a locker room manager present. Vitals: Estimated body mass index is 32.44 kg/m as calculated from the following: Height as of 03/30/23: 5' 3 . Weight as of this encounter: 183 lb 1.9 oz. BP: 110/68 Patient's last menstrual period was 12/29/2022. Assessment/Plan Encounter Diagnosis Name Primary? Third trimester Patient presents today for a routine obstetrics appointment. Patient is currently 34w0d . Patient states she is doing well but has complaints of being tired due to current . Patient has verbalizes frequent movement. labor precautions was discussed/given and patient was instructed to perform kick counts three times a day. Follow Up: Patient is to return to office in 2 week for routine OB appointment. Documented by Ron Ruano DO on behalf of: Ron Ruano DO documented in this encounter [facility] 12-10-2022 History of Present illness Narrative Chief Complaint: Chief Complaint Patient presents with Follow-up HPI: Zainab Swift is a 27 y.o. female who presents to [facility] for post-operative visit [...] (Patient not taking: Reported on 07/06/2022) Pancrelipase, Gtl-Izlb-Yqkn, (Creon) [id number] units Cap DR Particles Take two caps [...] 27 y.o. female who presents to [facility] for post-operative visit [...] (Patient not taking: Reported on 07/06/2022) Pancrelipase, Sxd-Dhdk-Wfiu, (Creon) [id number] units Cap DR Particles Take two caps [...] questions, concerns, or change in clinical status. Farshad Vigil APRN-PROFESSIONAL WRESTLER Attending Physician Note I interviewed and examined this patient with the ROUNDHOUSE FIRER/FIREMAN/fellow/resident. I reviewed the history and exam detailed [...] months with repeat imaging. Suman Baker MD/PhD aircraft pilot Division of Surgical Oncology Department of Surgery documented in this encounter [facility] 12-10-2022 Instructions MAMTA Villagran - 12/10/2022 12:30 PM EDT documented in this encounter [facility] 10-22-2022 History of Present illness Narrative [...] ulcers, vision changes. 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 [facility]. This handout is for informational purposes only. Talk with your doctor or healthcare team if you have any questions about your care. For more health information call the Library for Health Information at [phone] or email: [email or web address]. documented in this encounter [facility] 10-22-2022 History of Present illness Narrative Intravenous access obtained and remained for next appointment in cardioology at [facility]. 22 gauge IV in left ac. Dressing intact and/or coban used to secure access. Patient instructed to report directly to next appointment. documented in this encounter [facility] 10-07-2022 Note Acute Coronary Syndr ome (ACS): Initial Evaluation and Management: [email or web address] [facility] 10-07-2022 History of Present illness Narrative [...] of uncertain clinical significance. 02/03/2022 laparoscopic appendectomy OS path: Appendix, appendectomy: -Low grade appendiceal mucinous [...] able to do housework. 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 Eating ok. Weight [...] Reported on 07/06/2022) 30 tablet 0 Pancrelipase, Qpn-Fiiv-Fsgq, (Creon) [id number] units Cap DR Particles Take two caps [...] OR COLONOSCOPY DIAGNOSTIC 04/08/2022 APPENDECTOMY LAPAROSCOPIC 02/03/2022 [place] Past medical, surgical, family, and social [...] concerns, or any new or worsening symptoms. MAMTA Travis Endocrine Tumor Program [facility] and Mohamud Aguirre [facility] To discuss with Dr. Ortega documented in this encounter [facility] 10-07-2022 Instructions Johana Lutz RN - 10/07/2022 11:30 AM EDT Return to clinic: with Dr. Ortega (video) to regroup on 11/05, (after the following tests), Zainab, if tests neg and you feel good, let us know so we can cancel the visit. Scans/labs: ECHO/CT N/C next available. F/up troponin/BNP from today Treatment: Mary Kate castañeda Referrals: Cardiology referral Referral to rheumatology Dr. Suero due to + HUNTER (09/04/2022) Abdominal binder script to Zainab Thank you for choosing [facility] for your cancer care. FMLA/Disability forms: Please allow up to 2 weeks for the forms to be returned to you +++ should you need any FMLA, Short term disability or jig filler disability forms filled out please fax them to (f) [phone] ++++ Refill requests: Please allow 24-48 hours for a response My chart message response: PLEASE DO NOT SEND IN URGENT/EMERGENT MESSAGES VIA MY CHART. Please allow up to 24-48 hours for a response via my chart. Should you have questions or concerns, please call [phone] documented in this encounter [facility] 07-08-2022 History of Present illness [...] of uncertain clinical significance. 02/03/2022 laparoscopic appendectomy OS path: Appendix, appendectomy: -Low grade appendiceal mucinous [...] quickly and requires nap. 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 Better appetite with [...] Surgeon: Suman Baker MD, PhD; [facility] COLECTOMY PARTIAL OPEN Right 05/22/2022 Laterality: Right; Surgeon: Suman Baker MD, PhD; Location: [facility] MA[facility] OR DEBULKING INTRA-ABDOMINAL/PELVIC/RETROPERIT FLEMING W/ OMENECTOMY & PELVIC PARA-AORTIC LYMPHADENECTOMY N/A 05/22/2022 Laterality: N/A; Surgeon: Suman Baker MD, PhD; [facility] MAIN OR COLECTOMY PARTIAL LAPAROSCOPIC N/A 04/21/2022 Laterality: N/A; Surgeon: Suman Baker MD, PhD; Location: [facility] MAIN OR COLONOSCOPY DIAGNOSTIC 04/08/2022 APPENDECTOMY LAPAROSCOPIC 02/03/2022 [place] Social History Socioeconomic History Marital status: [...] recommendations. MAMTA Travis Neuroendocrine Tumor Program [facility] and Mohamud Aguirre [facility] Addendum by Dr. Ortega: IAttending Addendum:I [...] She was [facility] Suman Baker [facility] in [facility] chest revealed a [...] mesothelial proliferation, cecum without NET or LAMN, regional LN positive for metastatic NET. LMAN- [...] and fatigue. ECOG PS 1. 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 1. Metastatic, well differentiated, grade 1, appendicular [...] placebo groups was 14.3 and 6 months (p=[id number]), respectively. The CLARINET study, [which enrolled patients [...] 2. LAMN: Discussed with Dr. Vinicius Gomes/GI medonc who recommended active surveillance. No role for adjuvant systemic therapy. Patient will continue to follow with Dr. Suman Baker. 3. Hx of NET in family: referral to genetics 4. Transaminitis: discontinue hepatotoxins/acetaminophen. Repeat LFTs at RTC. documented in this encounter [facility] 07-08-2022 Instructions Yina Amaya RN - [...] Tylenol Cancel pathology-done documented in this encounter [facility] 06-09-2022 History of Present illness Narrative Chief Complaint: Chief Complaint Patient presents with Follow-up HPI: Zainab Swift is a 27 y.o. female who presents to [facility] for post-operative visit [...] Never Wt Readings from Last 3 Encounters: 11/22/22 72.7 kg (160 lb 3.2 oz) 05/22/22 [...] status. MAMTA Carrion documented in this encounter [facility] 06-09-2022 Елена Calvin RN - 06/09/2022 1:15 PM EST Tele health visit with Carlos Eliseo BIANCHI in 4 weeks on a Wednesday. Referral placed to neuroendocrine oncology. Return in [address] Baker with scans same day. documented in this encounter [facility] 05-29-2022 Note Formatting of this n [...] via wheelchair with [facility] belongings [facility] 1147. [facility] Miscellaneous Notes Patient and spouse [...] and assistance is needed, please page the regional account director PCRM at [phone]. Patient did well overnight. Patient pain mostly [...] multiple times yesterday. 2123: Moonlighter paged: Rm [id number]: FYMichi pt states that she can't tolerate taking the olanzapine disintegrating tablet because of the NG. Thanks [id number] Q1 safety rounds completed. Patient pain controlled [...] Providers Updated In IHIS Yes Contact Information Fish Frog Or Oyster Farmer/SW Added to Care Team Yes This Boiler Operator is Primary Fish Frog Or Oyster Farmer/SW Yes (Antonio Jiang RN [facility] [phone]) Fish Frog Or Oyster Farmer Name Pinky Barcenas RN [facility] Fish Frog Or Oyster Farmer's Social Work Contact Name Bailey Magallanes ROLL THREADER OPERATOR, INCOMING FREIGHT CLERK Rail Car Maintenance Mechanic's Living Environment Lives With spouse Living Arrangements [...] Education And Care For Discharge? Phill Swift [phone] Can Support Person Meet The Care Needs Of The Patient? 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 Employment/Financial Concerns no Source Of Income salary/wages Financial Concerns none Insurance Medical Insurance Verified Yes Prescription Coverage Yes Pharmacy updated in IHIS Yes Initial Discharge Planning Home Care Services (SCADA TECHNICIAN) No Home Therapies (SCADA TECHNICIAN) None DME (SCADA TECHNICIAN) None Medical Supplies (SCADA TECHNICIAN) None Patient Goal for Discharge Return home with assistance from family and friends Anticipated discharge disposition Home Anticipated Services at Discharge Outpatient follow up Anticipated Changes Related to Illness none Current Discharge Risk high risk diagnoses (i.e., CHF, Stroke, DM, chronic pain, abdominal pain, nausea and vomiting) Transportation Available car Home Care Services (SCADA TECHNICIAN) Additional Home Care Services (SCADA TECHNICIAN) no Assessment/Concerns to be Addressed Concerns To [...] 1512: Report called to Jevon EMERY on 12 [facility]. All questions answered. 1514: Patient discharged from [facility] PACU per protocol. Patient transported via gurney with side rails up x2 with HOB>30 degrees to room 1204 [facility] by Natalia EMERY and Dang CONVEYOR LOADER. Family called to patient's bedside. 1310: Patient arrives in [facility] PACU from OR via gurney with side rails up x2 with HOB >30 degrees, accompanied by Anesthesiologist: Vinicius Gupta DO; Chayo Benson MD Metal Cut Off Saw Tender: VIJAYA Gamboa; VIJAYA Lopez Vice President Commercial Bank Assisting: Richard Bradshaw MD Classics Professor: Wali Art. Patient placed on monitors, VSS. Report received from anesthesia. Patient assessed, see assessment. 1427: PACU labs and abdominal xray for NG placement cleared by Miguel Betancourt at this time. 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 JR drain placed in pelvis. SURGEON Surgeon(s) and Role: * Suman Baker MD, PhD - Primary ANESTHESIOLOGIST Anesthesiologist: Vinicius Gupta DO; Chayo Benson MD Metal Cut Off Saw Tender: VIJAYA Gamboa; VIJAYA Lopez Vice President Commercial Bank Assisting: Richard Bradshaw MD Classics Professor: Wali Art SURGICAL STAFF Water Pump Operator: Piedad Maki RN; Rima Medel RN Relief Water Pump Operator: Suri Stockton RN Relief Scrub: Ghanshyam Townsend [...] MD May 22, 2022 1:06 PM Zainab Jamison ([id number]) PRE OPERATIVE DIAGNOSIS Primary malignant neuroendocrine tumor [...] Anesthesiologist: Vinicius Gupta DO; Chayo Benson MD Metal Cut Off Saw Tender: VIJAYA Gamboa; VIJAYA Lopez Vice President Commercial Bank Assisting: Richard Bradshaw MD Classics Professor: Wali Art SURGICAL STAFF Water Pump Operator: Piedad Maki RN; Rima Medel RN Relief Water Pump Operator: Suri Stockton RN Relief Scrub: Ghanshyam Townsend Scrub Person: Heidy Costa; Tammy Lopez Resident Assisting: Rodolfo Arnold MD; [...] 1:04 PM SURGEONS: Suman Baker MD, PhD ROBOTICS TECHNOLOGIST SURGEON: Rodolfo Arnold MD PROCEDURE: - Exploratory [...] second timeout per standard procedure at the [facility]. We made a midline incision [...] the vessel and was taken with an [employer]KARRIE sarmiento stapler device. Next, we began the otdtlf-gg-koxmqpw dissection to mobilize the colonic mesentery. We [...] filed. We then proceeded with creating a iycr-cp-wzyn functional end-to-end anastomosis between the distal ileum [...] Seen 05/22/22 documented in this encounter [facility] 05-29-2022 Hospital course Narrative Discharge Summary [...] of Surgical Oncology Arrive at: Arrive to [facility] Registration [phone] documented in this encounter [facility] 05-28-2022 Note Formatting of this n ote is different from the original. 05/28/22 1018 Referral Information Arrived From home or self-care;operating room Final Discharge Planning Discharge Disposition Home Services at Discharge Outpatient clinical services (ie: lab draws, transfusions, injectables) (Follow up scheduled with Dr. Baker) CM/JAYLYN AVS Portion Completed Yes Plan Plan Possible discharge this weekend. Plan Comments Discharge to home with spouse Transport Request Mode of Transfer private vehicle Accompanied By significant other Zainab Swift is a 27 y.o. 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 Isr[place] Inpatient [facility] Discharge Note Patient discussed in am medical [...] and assistance is needed, please page the regional account director PCRM at [phone]. [facility] 05-28-2022 History of Present illness Narrative [...] the care of Zainab Swift. Please page [phone] or call [phone] with any questions or concerns. Elroy Powell MD Acute Pain Service Senior Resident @ [phone] Subjective: Passing gas and having regular BMs. [...] Plan was discussed with Dr. Oanh Betancourt, SPENCER-TASH B surgery G3 service [id number] Anesthesia Acute Pain Progress Note Zainab Swift [...] acute pain service at [phone] or call [phone] with any questions or concerns. Yann Burr [...] regimen. Plan was discussed with MAMTA Wisdom [facility] surgery G3 service [id number] Psychosocial Assessment Per chart review, patient is a is a 27 y.o. 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 PMH: anxiety, borderline personality disorder, depression, GERD SW met with patient to introduce self, explain social insurance analyst role during inpatient stay, and answer patient questions. Patient was alert and oriented x4 and agreeable to SW visit. Information Source Information Source: patient , review of medical record, spouse Information Source Name: Arlette Swift Information Source Number: see demographics Contact Information Fish Frog Or Oyster Farmer Name: Pinky Smith RN [facility] Fish Frog Or Oyster Farmer's Social Work Contact Name: Bailey WILLAMS INCOMING FREIGHT CLERK Rail Car Maintenance Mechanic's Living Environment Lives With: spouse Living Arrangements: house (one story house wiith 3 Steps to enter) Provides Primary Care For: no one Primary Care Provided By: spouse/significant other, self Support System: Immediate family Able to Return to Prior Arrangements: yes Employment/Financial Employed?: Yes 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 JAYLYN reviewed that without completed document on file, per [place] Law, spouse, Phill Swift, (ph: [phone]) would be their Legal NOK for decision making. SW requested patient provide the hospital with a copy of the document when possible so that it can be scanned into their medical record. Patient agreeable to this plan. Legal NOK: Pt's is her LNPILAR. Substance Use: None Reported Community Resources: None Provided nor needed at this time. Home Health / DME: See PCRM Note for more information. Health Insurance / Rx: [id number] [place] [address] [address] [facility] Anticipated Discharge Plan: Pt report she plans to return home with care and transportation provided by her . Medical Team Considerations: None SW Interventions/Recommendations: Service SW name and contact information placed on white board in patient's room to contact as needed. SW will continue to remain available to provide assistance and support as needed during inpatient stay. IMER Christina, INCOMING FREIGHT CLERK SONC and [facility] Rail Car Maintenance Mechanic Pager: [phone] For Evening (4:30pm-8am) and Weekend SW needs please call [phone] or page [phone] Anesthesia Acute Pain Progress Note Zainab Swift [...] acute pain service at [phone] or call [phone] with any questions or concerns. Yann Burr MD PGY-1 Anesthesiology Associated attestation - Ilia lOiva MD - 05/26/2022 12:15 PM EST Acute Pain Service Attending Addendum: I personally examined and evaluated the patient. I reviewed the case and medical record with the resident. Based on the history and exam, I agree with the medical decision making. Ilia Oliva M.D. Subjective: No acute events overnight. Pain [...] Plan was discussed with Dr. Oanh Colón, CAMPAIGN MANAGEMENT SENIOR MANAGER-PROFESSIONAL WRESTLER [facility] surgery G3 service [phone] Anesthesia Acute Pain Progress Note Zainab Swift [...] acute pain service at [phone] or call [phone] with any questions or concerns. Yann Burr [...] interviewed and examined this patient with the ROUNDHOUSE FIRER/FIREMAN/fellow/resident. I reviewed the history and exam detailed in the note and have edited it as necessary. I agree with the medical decision making unless otherwise noted below. The patient is doing well. Her pain is well controlled. She is mildly distended on exam. We will continue NPO with NGT until return of bowel function. Suman Baker MD/PhD aircraft pilot Division of Surgical Oncology Department of Surgery [...] Plan was discussed with Dr. Oanh Colón, CAMPAIGN MANAGEMENT SENIOR MANAGER-PROFESSIONAL WRESTLER [facility] surgery G3 service [id number] [facility] Surgery Note Subjective: Patient doing well [...] acute pain service at [phone] or call [phone] with any questions or concerns. Yann Burr [...] acute pain service at [phone] or call [phone] with any questions or concerns. Yann Burr [...] her acute post-operative pain. Pain assessment: Pain: 3/10 well-controlled PCEA helps: yes Side effects: none [...] regimen Please page acute pain service at [phone] or call [phone] with any questions or concerns. Richard Bradshaw MD executive vice president of sales [facility] documented in this encounter [facility] 05-27-2022 Note Formatting of this n [...] with stand-by assistance from multiple times yesterday. [facility] 05-26-2022 Consult note Formatting of th [...] 1: Location: forearm, anterior, right Device/Lot Number: [id number] catheter system Gauge/Length: 1 3/4 in length;20 gauge Unsuccessful Insertion Attempts: 1 Unsuccessful Attempt Location/Site: Pain Prevention/Patient Tolerance: distraction;tolerated well;appears comfortable Removal: Additional Comments: placed by Carla Mccurdy RN Lumen 2: Lumen 3: Peripheral IV Present on Admission: (Retired/Read Only) Location: (Retired/Read Only) Device: (Retired/Read Only) Gauge/Length: Director Of Global Marketing/Lot Number: Unsuccessful Insertion Attempts: (Retired/Read Only) Unsuccessful [...] care of this patient. Vascular Access Team [id number] [facility] 05-26-2022 Consult note Formatting of th is note is different from the original. Vascular Access Procedure Note for Ultrasound Guided PIV Placement Assessment Zainab Jamison seen and evaluated for peripheral IV insertion [...] 1: Location: forearm, anterior, right Device/Lot Number: [id number] catheter system Gauge/Length: 1 3/4 in length;20 gauge Unsuccessful Insertion Attempts: 1 Unsuccessful Attempt Location/Site: Pain Prevention/Patient Tolerance: distraction;tolerated well;appears comfortable Removal: Additional Comments: placed by Carla Mccurdy RN Lumen 2: Lumen 3: Peripheral IV Present on Admission: (Retired/Read Only) Location: (Retired/Read Only) Device: (Retired/Read Only) Gauge/Length: Director Of Global Marketing/Lot Number: Unsuccessful Insertion Attempts: (Retired/Read Only) Unsuccessful [...] care of this patient. Vascular Access Team [id number] documented in this encounter [facility] 05-25-2022 Note Formatting of this n ote might be different from the original. 2123: Gabriella paged: Rm [phone]: ERIK pt states that she can't tolerate taking the olanzapine disintegrating tablet because of the NG. Thanks [phone] [facility] 05-22-2022 Note Formatting of this n [...] outcomes by discharge/transition of care. Outcome: Ongoing [facility] 05-22-2022 Note Formatting of this n ote might be different from the original. I certify that this patient requires inpatient services at this time. I anticipate the expected length of stay will include at least two midnights. Inpatient services are due to the following medical concerns appendiceal NET. Plans for post hospitalization care will be discharge to home. [facility] 05-22-2022 Note Formatting of this n ote is different from the original. 05/22/22 1608 Referral Information Arrived From home or self-care;operating room Readmission Information Was patient readmitted within 30 Days? No Information Source Information Source patient Information Source Name Zainab Swift-in person Information Source Number Demographics reviewed Outpatient Providers Outpatient Providers Updated In IHIS Yes Contact Information Fish Frog Or Oyster Farmer/SW Added to Care Team Yes This Boiler Operator is Primary Fish Frog Or Oyster Farmer/SW Yes (Antonio Jiang RN PCR [phone]) Fish Frog Or Oyster Farmer Name Pinky Barcenas RN [facility] Fish Frog Or Oyster Farmer's Social Work Contact Name Bailey Magallanes ROLL THREADER OPERATOR, INCOMING FREIGHT CLERK Rail Car Maintenance Mechanic's Living Environment Lives With spouse Living Arrangements [...] Education And Care For Discharge? Phill Swift [phone] Can Support Person Meet The Care Needs Of The Patient? 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 Employment/Financial Concerns no Source Of Income salary/wages Financial Concerns none Insurance Medical Insurance Verified Yes Prescription Coverage Yes Pharmacy updated in IHIS Yes Initial Discharge Planning Home Care Services (SCADA TECHNICIAN) No Home Therapies (SCADA TECHNICIAN) None DME (SCADA TECHNICIAN) None Medical Supplies (SCADA TECHNICIAN) None Patient Goal for Discharge Return home with assistance from family and friends Anticipated discharge disposition Home Anticipated Services at Discharge Outpatient follow up Anticipated Changes Related to Illness none Current Discharge Risk high risk diagnoses (i.e., CHF, Stroke, DM, chronic pain, abdominal pain, nausea and vomiting) Transportation Available car Home Care Services (SCADA TECHNICIAN) Additional Home Care Services (SCADA TECHNICIAN) no Assessment/Concerns to be Addressed Concerns To [...] Lines/Drains/Tubes Abdominal incision with dressing x 2 Winifrede drain x 1-under distal dressing NG-low wall [...] and for discharge planning. Medical team updated. [facility] 05-22-2022 Note Formatting of this n ote might be different from the original. 1512: Report called to Jevon EMERY on 12 [facility]. All questions answered. 1514: Patient discharged from [facility] PACU per protocol. Patient transported via gurney with side rails up x2 with HOB>30 degrees to room 1204 [facility] by Natalia EMERY and Dang LISA. Family called to patient's bedside. [facility] 05-22-2022 Note Formatting of this n ote might be different from the original. 1310: Patient arrives in [facility] PACU from OR via gurney with side rails up x2 with HOB >30 degrees, accompanied by Anesthesiologist: Vinicius Gupta DO; Chayo Benson MD Metal Cut Off Saw Tender: VIJAYA Gamboa; VIJAYA Lopez Vice President Commercial Bank Assisting: Richard Bradshaw MD Classics Professor: Wali Art. Patient placed on monitors, VSS. Report received from anesthesia. Patient assessed, see assessment. 1427: PACU labs and abdominal xray for NG placement cleared by Miguel Betancourt at this time. [facility] 05-22-2022 Note Formatting of this n ote is different from the original. 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 JR drain placed in pelvis. SURGEON Surgeon(s) and Role: * Suman Baker MD, PhD - Primary ANESTHESIOLOGIST Anesthesiologist: Vinicius Gupta DO; Chayo Benson MD Metal Cut Off Saw Tender: VIJAYA Gamboa; VIJAYA Lopez Vice President Commercial Bank Assisting: Richard Bradshaw MD Classics Professor: Wali Art SURGICAL STAFF Water Pump Operator: Piedad Maki RN; Rima Medel RN Relief Water Pump Operator: Suri Stockton RN Relief Scrub: Ghanshyam Townsend [...] Arnold MD May 22, 2022 1:06 PM [facility] Work Phone: 05-22-2022 Note Formatting of this n ote is different from the original. Zainab Swift ([id number]) PRE OPERATIVE DIAGNOSIS Primary malignant neuroendocrine tumor [...] Anesthesiologist: Vinicius Gupta DO; Chayo Benson MD Metal Cut Off Saw Tender: VIJAYA Gamboa; VIJAYA Lopez Vice President Commercial Bank Assisting: Richard Bradshaw MD Classics Professor: Wali Art SURGICAL STAFF Water Pump Operator: Piedad Maki RN; Rima Medel RN Relief Water Pump Operator: Suri Stockton RN Relief Scrub: Ghanshyam Townsend [...] Hong MD May 22, 2022 1:04 PM [facility] Work Phone: 05-22-2022 Note Formatting of this n ote is different from the original. SURGEONS: Suman Baker MD, PhD ROBOTICS TECHNOLOGIST SURGEON: Rodolfo Arnold MD PROCEDURE: - Exploratory [...] second timeout per standard procedure at the [facility]. We made a midline incision [...] sarmiento stapler device. Next, we began the totaoi-vb-uewypqh dissection to mobilize the colonic mesentery. We [...] filed. We then proceeded with creating a cgrz-yw-lvca functional end-to-end anastomosis between the distal ileum [...] participated for the entirety of the case. [facility] Work Phone: 05-22-2022 Nurse Surgical operation note 0815 Family notified of surgery start 1210 Family updated 1228 Handoff report sent to PACU charge nurse 1255 PACU given notice of arrival 1309 Patient extubated and transported to PACU with anesthesia at bedside and on oxygen inhalation Rima Medel RN [facility] 05-22-2022 Nurse Note 0815 Family notified of surgery start 1210 Family updated 1228 Handoff report sent to PACU charge nurse 1255 PACU given notice of arrival 1309 Patient extubated and transported to PACU with anesthesia at bedside and on oxygen inhalation Rima Medel RN documented in this encounter [facility] 05-22-2022 Note Formatting of this n [...] puncture Incision WDL WDL Incision (Adult, Pediatric) 04/21/2249 lower;medial abdomen laparoscopic puncture Placement Date/Time: 04/21/22748 Present On Admission : no Orientation: lower;medial Location: abdomen Incision Type: laparoscopic puncture Incision WDL WDL Plan WOCT Visit Frequency Sat Last Date Seen 05/22/22 [facility] 05-22-2022 History and physical note Surgical [...] N/A; Surgeon: Suman Baker MD, PhD; Location: [facility] MAIN OR COLONOSCOPY DIAGNOSTIC 04/08/2022 APPENDECTOMY LAPAROSCOPIC 02/03/2022 [place] Family History Family History Problem Relation [...] hours as instructed. 05/21/2022 04/23/22 Elsie Mason APRN-PROFESSIONAL WRESTLER Review of Systems Denies the following: Arrhythmias, [...] to the patient's satisfaction. Liza Cisneros PA-C [facility] 05-22-2022 History and physical note Surgical [...] Surgeon: Suman Baker MD, PhD; [facility] 04/08/2022 APPENDECTOMY LAPAROSCOPIC 02/03/2022 [facility], [place], [place] Family History Family History Problem Relation [...] day before surgery 05/21/2022 04/23/22 Elsie Mason APRN-PROFESSIONAL WRESTLER FLUoxetine 40 MG capsule 40 mg, Oral, [...] hours as instructed. 05/21/2022 04/23/22 Elsie Mason APRN-PROFESSIONAL WRESTLER Review of Systems Denies the following: Arrhythmias, [...] Liza Cisneros PA-C documented in this encounter [facility] 05-21-2022 Hospital Discharge instructions Pinky Be RN - 05/21/2022 10:38 AM EDT Contacts: Suman Baker MD Office Number: [phone] Option 1 During office hours, Wednesday through Wednesday, 8:00 AM to 4:30 PM, call the office if you have any questions or concerns. After hours, weekends and holidays call the office number and you will be transferred to the After Hours Nurse Line. Call 911 for Emergencies. Your case supervisor (PCRM) has arranged your appointments for follow [...] pharmacist before using any other medicine, including jtrn-osh-hhdyssn medicines, vitamins, and herbal products. Avoid taking [...] and support, many resources are available. The [facility] Call to request information or check hours. [facility]: or , www.[facility] Classes: Swoop, Integrative Care Monthly Classes The OpenAgent.com.au for Life Program offers a series of [...] families and friends. For more information, contact [facility] at or visit our website at www.Digitel Resources in [facility] include the following: The [place] Cancer Society, [facility] Unit . The [facility] The Cancer Support [facility]: http://cancersupportohio.org/prog cayv-ucf-dskowiyp/virtual-formerly [facility] / National Resources: [place] Cancer Society (ACS), www.cancer.org 3-994-DNO-2345, [place]: 1-597-SSS-[place]. National Comprehensive Cancer Netowork (NCCN) 9-758-613-NCCN, www.nccn.org National Cancer [place] (NCI) 5-441-1-CANCER, www.nci.gov The following attachments cannot be sent through Care Everywhere.Lovenox or Heparin: Subcutaneous Injections ([facility]) (Yakut)documented in this encounter [facility] 04-29-2022 Note PROCEDURE: XR HIP RT [...] authenticated by: CAROLYN WALSH Date: 2022-04-29 16:59 [facility] 04-29-2022 Note PROCEDURE: XR HIP RT [...] authenticated by: CAROLYN WALSH Date: 2022-04-29 16:59 [facility] 04-29-2022 Note PROCEDURE: XR HIP RT [...] authenticated by: CAROLYN WALSH Date: 2022-04-29 16:59 [facility] 03-19-2022 History of Present illness Narrative [...] appendectomy on 02/03/22 for acute appendicitis at [facility]. 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 She presents to [facility] GI Surgical Oncology clinic for surgical evaluation. [...] History: Procedure Laterality Date APPENDECTOMY LAPAROSCOPIC 02/03/2022 [place] No Known Allergies Current Outpatient Medications [...] in our surgical oncology clinic at [facility], [facility] and [facility]. As you know, Ms. Swift is [...] the future. Sincerely, Suman Baker MD, PhD aircraft pilot Department of Surgery Division of Surgical Oncology [address] [address] Office [phone] [place] [phone] Fax [email or web address] documented in this encounter [facility] 03-19-2022 Instructions Rhoda Lazo RN - 03/19/2022 3:00 PM EDT Pre-operative Information As a patient at the [facility], you may work with various departments and have help from many professionals. One of these is a surgical oncologist who works in the Division of Surgical Oncology. Surgical oncologists are surgeons who have completed advanced training to care for cancer patients. All of the surgical oncologists at the [facility] have completed specialized training and are board-certified. The surgeon who will be performing your surgery is Suman Baker M.D., aircraft pilot. [address] [place] [address] Office phone: [phone] We are available to take calls Wednesday-Wednesday 8:00am-4:30pm. During non-business hours and holidays phone calls will be forwarded to a service covering our patients. Please communicate with our team through [facility] for non-urgent issues only. Office fax: [phone] Clinic Nurse Practitioner Carlos Gomes Pulmonary Fellow Sandra Kennedy Contact Lens Flashing Puncher Iris Giraldo OUR TEAM OF EXPERTS [facility] is associated with [facility] and is an academic medical center. Dr. Skip Le is an attending physician, the toilet and laundry soap supervisor of your care. Listed below are the members of his team: Surgical Oncology Fellow: a physician who completed residency and is obtaining further education. Resident(s): a physician who has finished class a lineman and is receiving training in a specialized area (i.e. surgery) Insurance Representative(s): a physician who has completed medical school and is in the 1st year of training Nurse Practitioner (ROUNDHOUSE FIRER/FIREMAN): A registered nurse with a master's or doctoral degree who is licensed to practice; Clinic: Carlos Gomes APRNTASH Hospital: Nayeli Astudillo, [facility], Suman Jeffries, [facility], Kika Colón, [facility], Monica Jackson, [facility] Patient Care Art Preparator (PCRM): A registered nurse who coordinates care for patients returning home from the hospital and assists in coordinating home care; Clinic: Alissa Hunt, [facility], Hospital: Felicitas Campos, [facility], Yoselyn Lange , [facility], Antonio Jeffrey, [facility]. MEDICAL RECORDS The Release of Information ([facility]) area is staffed from 8:00 a.m. to 7:00 p.m. and is available for walk in requests from 8:00 a.m. to 4:30 p.m. [facility] is responsible for answering requests for copies of medical records from various requestors such as insurance companies, hospitals and patients. Please note it can take up to 2 weeks to complete your request. [phone] DISABILITY FORMS This category includes any form [...] for a private room? All rooms at the [facility] are private. Do you have a social insurance analyst available? A social insurance analyst is assigned to our team. How can I help my family plan for my discharge? From the moment a patient is admitted, the PCRMs begin to plan for the patient s discharge. Plan to leave at 11am on the day of discharge. Discharge instructions will be given to the patient. The hospital nurse will discuss these with you. Does the [facility] precertify my surgery? Yes. The precertification department at [facility] will notify your insurance carrier. Who should I contact if I anticipate difficulty paying my bill? We want to make sure all patients have access to the quality healthcare services of [facility], and we are committed to working with you and your family to obtain appropriate financial assistance. You may contact the Office of Financial Counseling [phone] weekdays between 8am and 5pm to help determine whether you might qualify for an assistance program. Do I need to bring clothes from home to wear at the hospital? The [facility] will provide you with personal items. You may wish to bring a robe or slippers. Does the [facility] have a designated area for smoking? The [facility] does not permit smoking inside or outside the hospitals including parking areas and sidewalks. If you would like to quit, you can contact a tobacco addiction treatment counselor at [phone] [phone] or the [place] Tobacco QUIT LINE at [631] 718-3410. Where can I find information about visitation, [...] someone after business hours? The office number, [phone] or [phone], is connected to an answering service after 4:30pm each weekday and on weekends, available 08/02. What number should I call if I have billing questions? Please call [facility] s Central Business Office at [phone]. Please Note: In regards to penitentiary pain control. You may need narcotic pain [...] call by 4 p.m., please call the [facility] Ambulatory Surgery Unit at . [...] the hospital. Do not wear makeup, nail cape verdean or hair pins to the hospital. Please [...] or fever, before your surgery, call the [facility] Ambulatory Surgery Unit at and [...] pulp Popsicles Ice Soft drinks Gatorade (Lemon Wainwright preferred) Clear broth or bouillon Jello Coffee [...] not red, orange, or purple in color. Lemon-[place] is preferred. You may need to pour [...] program. You can also get help through: [facility] Tobacco Dependency Clinic, National Quit Line, [place] Lung Association, [place] Cancer Society, Smokefree.gov website Stop Alcohol Use [...] resources helpful:Alcoholics Anonymous (AA) http://www.aa.org/ Rethinking Drinking https://www.rethinkingdrinking.ni aaa.nih.gov/ National [place] of Alcohol Abuse and Alcoholism https://niaaa.nih.gov/ Sasha Head [phone] -Inpatient, partial hospitalization and outpatient services for [...] Patient Controlled Analgesia (also known as a CONVEYOR LOADER) A CONVEYOR LOADER is a pain pump that could be [...] AM of surgery documented in this encounter [facility] 02-19-2022 Miscellaneous Notes Addended by: KARINE GALVAN on: 02/19/2022 04:15 PM Modules accepted: Orders INTESTINAL REFERRAL Let the person providing referral info know that you must speak directly to the patient. Our team cannot proceed with intake without communicating directly with the patient. 1) What is your (the patient's) direct phone contact number?- [phone] 2) What is your referring diagnosis? Appendix [...] resources available to cover travel expenses to [facility]? Yes We are currently flexible in offering initial virtual consultations for both surgery and transplant ONLY to patients living in [place], [place], and [place] through May 18, 2022. This may expand to other states depending on where the surgeon who conducts your initial visit is licensed (Dr. Wyatt is licensed in [place], [place], and [place]). If you are living in another state and desire an initial virtual consultation, you may choose to purchase a Momailult. (Surgical or transplant evaluations are highly individualized and may be conducted either through your local providers or at the [facility]. The plan for your evaluation will [...] for any pre-surgical testing done at the [facility], and for any post-surgical stay in [place] depending on your post-surgical course. 8) Would you be interested in participating in [facility] Care Online Virtual Visits for the psychosocial screening? - Yes If the patient says no, proceed as normal. If yes, please e-mail the patient and copy the social insurance analyst on it. She will need them to [...] have been over the past 1 year? [facility] (Submit ALL template in [facility], AND for transplant patients submit MOST RECENT template) -Where else have you been for surgeries or testing and what years? Where/when was your very first abdominal surgery? Same as above 1st abdominal surgery- 01/2022 (Submit ALL template in [facility]-health) 10) How many drinks of alcohol do [...] On medication - Psychiatrist (Submit request in [employer]) 15) Do you have a Power of Cook Supervisor (POA)? Do you have a Living Will?- No If so, please bring a copy of this to your appointment. 16) For females: When and where was your last mammogram (40 and up) and pap smear (16 and up)? - Needs to be within last year.- PAP- Never had & Mammo- No (Submit request in [employer]Noovo) 17) For all patients: When and where was your last dental visit? - Needs to be within last 6 months.- about 6 months ago (Submit request in [facility]Noovo) 18) If transplant- Ask patient to obtain their immunization records and have them sent to us via mail/fax.- COVID- Yes The patient has been entered into Edit, chart is created, and request to Shopp[employer] for medical records has been generated. Financial clearance has been submitted for rehab/transplant (if on TPN or has dysmotility, submit for both rehab & transplant). Chart will be given to resident services coordinator. Referral received from Dr. Rodney Olivas from [facility] ([phone]) to Dr. Davies. 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 Will call patient to start intake. documented in this encounter [facility] 12-22-2021 Evaluation note Encounter Date Diagnosis [...] Follow up with primary care provider or battery plate assembler if no improvement of symptoms. 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 [facility] Diagnosis Primary malignant neuroendocrine tumor of appendix [facility] Primary malignant neuroendocrine tumor of appendix- Primary 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 [facility] Diagnosis Primary malignant neuroendocrine tumor of appendix Post-operative pain Other acute postoperative pain Primary malignant neuroendocrine tumor of appendix [facility] Diagnosis Primary malignant neuroendocrine tumor of appendix- Primary [facility] Diagnosis Primary malignant neuroendocrine tumor of appendix- Primary [facility] Diagnosis Primary malignant neuroendocrine tumor of appendix [facility] Diagnosis Primary malignant neuroendocrine tumor of appendix [facility] Diagnosis Carcinoid syndrome- Primary SOB (shortness of breath) Shortness of breath Tachycardia Tachycardia, unspecified Antinuclear antibody (HUNTER) titer greater than 1:80 Primary malignant neuroendocrine tumor of appendix [facility] Diagnosis Primary malignant neuroendocrine tumor of appendix [facility] Diagnosis Carcinoid syndrome SOB (shortness of breath) Shortness of breath Tachycardia Tachycardia, unspecified Primary malignant neuroendocrine tumor of appendix [facility] Diagnosis Fibromyalgia muscle pain- Primary Mylagia and myositis, unspecified [facility] Diagnosis Primary malignant neuroendocrine tumor of appendix- Primary [facility] Diagnosis Primary malignant neuroendocrine tumor of appendix [facility] Diagnosis 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 Neoplasm of unspecified nature of digestive system [facility] Diagnosis Third trimester state, incidental documented [facility] - Reported* Type Description Date Medical History chronic depression Comunitae Other Reason for referral (narrative)* (Routine) Specialty Diagnoses / Procedures Referred By Contac t Referred To Contact ISRRAEL Crow [address] [place] [phone] Referral ID Status Reason Start Date Expiration Date Visits Re quested Visits Authorized * (Routine) - New Request Specialty Diagnoses / Procedures Referred By Contac t Referred To Contact Procedures PLATELET MONITORING PER PROTOCOL Suman Baker MD, PhD [address] [place] [address] Referral ID Status Reason Start Date Expiration Date V isits Requested Visits Authorized [id number] New Request 05/22/2022 06/16/2023 1 1 * (Routine) - New Request Specialty Diagnoses / Procedures Referred By Contac t Referred To Contact Procedures DVT/VTE RISK ASSESSMENT Suman Baker MD, PhD [address] [place] [address] Referral ID Status Reason Start Date Expiration Date V isits Requested Visits Authorized [id number] New Request 05/22/2022 06/16/2023 1 1 * (Routine) - New Request Specialty Diagnoses / Procedures Referred By Contac t Referred To Contact Procedures NO MECHANICAL DVT PROPHYLAXIS Liza Cisneros PA-C [address] [place] [address] Referral ID Status Reason Start Date Expiration Date V isits Requested Visits Authorized [id number] New Request 05/22/2022 06/16/2023 1 1 [facility] for referral (narrative)* Consultation (Routine) - New Request Specialty Diagnoses / Procedures Referred By Contac t Referred To Contact Oncology Diagnoses Primary malignant neuroendocrine tumor of appendix Carlos Gomes APRN-PROFESSIONAL WRESTLER [address] [place] [address] Andreas Ortega MD, MPH [address] [facility] [address] [place] [address] Referral ID Status Reason Start Date Expiration Date V isits Requested Visits Authorized [id number] New Request 06/09/2022 07/04/2023 1 1 * MRI/CAT Scan (Routine) - New Request Specialty Diagnoses / Procedures Referred By Contac t Referred To Contact Diagnoses Primary malignant neuroendocrine tumor of appendix Procedures CT ABDOMEN/PELVIS WITH CONTRAST CHG CT SCAN,ABDOMENT AND PELVIS,W CONTRAST Carlos Gomes APRN-CNP [address] [place] [address] Referral ID Status Reason Start Date Expiration Date V isits Requested Visits Authorized [id number] New Request 06/09/2022 07/04/2023 1 1 [facility] for referral (narrative)* Consultation (Routine) - New Request Specialty Diagnoses / Procedures Referred By Katharine t Referred To Contact Genetics Diagnoses Primary malignant neuroendocrine tumor of appendix Yudelka Moralez APRN-[facility] [address] [place] [address] Erin Stoner, [facility] [address] [phone] Referral ID Status Reason Start Date Expiration Date V isits Requested Visits Authorized [id number] New Request 07/08/2022 08/02/2023 1 1 * MRI/CAT Scan (Routine) - New Request Specialty Diagnoses / Procedures Referred By Katharine morales Referred To Contact Diagnoses Primary malignant neuroendocrine tumor of appendix Procedures CT ABDOMEN/PELVIS WITH AND WITHOUT CONTRAST CHG CT SCAN,ABDOMENT AND PELVIS,Andreas Ellis MD, MPH [address] [address] Referral ID Status Reason Start Date Expiration Date V isits Requested Visits Authorized [id number] New Request 07/08/2022 08/02/2023 1 1 * Radiology (Routine) - New Request Specialty Diagnoses / Procedures Referred By Katharine morales Referred To Contact Diagnoses Primary malignant neuroendocrine tumor of appendix Procedures NUC PET NEUROENDOCRINE CHG NUC THERAPY HYPERTHYROID SUBSEQUENT Yudelka Moralez APRN-PROFESSIONAL WRESTLER [address] [phone] Referral ID Status Reason Start Date Expiration Date V isits Requested Visits Authorized [id number] New Request 07/08/2022 08/02/2023 1 1 [facility] for visit Narrative* Auth/Cert Specialty Diagnoses / Procedures Referred By Katharine t Referred To Contact Diagnoses 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] Procedures DC CHG HYPERTHERMIA RX INTRACAV PROBE DC PART REMOVAL COLON W ANASTOMOSIS DC RESECT RECURRENT VACUUM CLEANER REPAIR PERSON MALIG 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) COLECTOMY PARTIAL OPEN DEBULKING INTRA-ABDOMINAL/PELVIC/RETROPE RITONEAL W/ OMENECTOMY & PELVIC PARA-AORTIC LYMPHADENECTOMY Suman Baker MD, PhD [address] [place] [address] [facility] [address] [place] [address] Referral ID Status Reason Start Date Expiration Date Visits Re quested Visits Authorized [id number] 1 1 [facility] Summary Purpose Family History No Family [...] SOB (shortness of breath) Tachycardia Procedures ECHOCARDIOGRAM DC ECHO HEART XTHORACIC,COMPLETE W DOPPLER Yudelka Moralez, CAMPAIGN MANAGEMENT SENIOR MANAGER-PROFESSIONAL WRESTLER [address] [place] [address] Echocardiography [place] [address] [facility] [address] [place] [address] Referral ID Status Reason Start Date Expiration Date V isits Requested Visits Authorized [id number] Auth Not Needed 10/07/2022 11/01/2023 1 1 Specialty Diagnoses / Procedures Referred By Contac t Referred To Contact Diagnoses Primary malignant neuroendocrine tumor of appendix Procedures CT NECK WITH CONTRAST DC CT NECK TISSUE CONTRAST Yudelka Moralez, CAMPAIGN MANAGEMENT SENIOR MANAGER-PROFESSIONAL WRESTLER [address] [place] [address] Referral ID Status Reason Start Date Expiration Date V isits Requested Visits Authorized [id number] New Request 10/07/2022 11/01/2023 1 1 Specialty Diagnoses / Procedures Referred By Contac t Referred To Contact Diagnoses Carcinoid syndrome SOB (shortness of breath) Tachycardia Primary malignant neuroendocrine tumor of appendix Procedures CT CHEST WITH CONTRAST CHG DIAGNOSTIC COMPUTED TOMOGRAPHY THORAX W/CONTRAST Yudelka Moralez, CAMPAIGN MANAGEMENT [facility] [address] [place] [phone] Referral ID Status Reason Start Date Expiration Date V isits Requested Visits Authorized [id number] New Request 10/07/2022 11/01/2023 1 1 Specialty Diagnoses / Procedures Referred By Lindaac t Referred To Contact Oncology Diagnoses Carcinoid syndrome SOB (shortness of breath) Tachycardia Yudelka Moralez CAMPAIGN MANAGEMENT [facility]IOR [facility] [address] [place] [phone] Referral ID Status Reason Start Date Expiration Date V isits Requested Visits Authorized [id number] New Request 10/07/2022 11/01/2023 1 1 Specialty Diagnoses / Procedures Referred By Katharine t Referred To Contact Rheumatology Diagnoses Antinuclear antibody (HUNTER) titer greater than 1:80 Yudelka Moralez CAMPAIGN MANAGEMENT [facility]IOR [facility] [address] [place] [phone] Referral ID Status Reason Start Date Expiration Date V isits Requested Visits Authorized [id number] New Request 10/07/2022 11/01/2023 1 1 Specialty Diagnoses / Procedures Referred By Katharine t Referred To Contact Diagnoses Primary malignant neuroendocrine tumor of appendix Procedures CT ABDOMEN/PELVIS WITH CONTRAST CHG CT SCAN,ABDOMENT AND PELVIS,W CONTRAST Carlos Gomes, [facility] [address] [facility] [address] [place] [address] Referral ID Status Reason Start Date Expiration Date Visits Re quested Visits Authorized [id number] Closed 03/19/2022 04/13/2023 1 1 Specialty Diagnoses / Procedures Referred By Lindaac t Referred To Contact TRANSPLANT Diagnoses Cancer of appendix (HCC) Procedures CONSULT TO [facility] CENTER EXPLORATORY LAPAROTOMY CELIOTOMY W/WO BIOPSY SPX Vernon Davies MD [address] [place] [address] [facility] Main [address] [address] Referral ID Status Reason Start Date Expiration Date Visits Requested Visits Authorized [id number] Pending Review Financial Clearance Required - OON Payor 02/19/2022 02/19/[phone] Additional Source Comments INFORMATION SOURCE (unrecogn ized section and content) DATE CREATED AUTHOR 02/19/2021 Rohit Severino [facility] DATE CREATED AUTHOR AUTHOR'S ORGANIZ ATION 01/03/2022 [facility] DATE CREATED AUTHOR AUTHOR'S ORGANIZ ATION 12/25/2022 [facility] DATE CREATED AUTHOR AUTHOR'S ORGANIZ ATION 04/24/2023 [facility] DATE CREATED AUTHOR AUTHOR'S ORGANIZ ATION 08/25/2023 [facility] Specialists EPIC REASON FOR VISIT (unrecogniz ed section and content) Reason Comments Referral Request Specialty Diagnoses / Procedures Referred By Katharine morales Referred To Contact Diagnoses Primary malignant neuroendocrine tumor of appendix Procedures CT ABDOMEN/PELVIS WITH CONTRAST CHG CT SCAN,ABDOMENT AND PELVIS,W CONTRAST Carlos Gomes, CAMPAIGN MANAGEMENT SENIOR MANAGER-PROFESSIONAL WRESTLER [address] [place] [address] Referral ID Status Reason Start Date Expiration Date Visits Re quested Visits Authorized [id number] Closed 03/19/2022 04/13/2023 1 1 Reason Comments New Patient Specialty Diagnoses / Procedures Referred By Katharine morales Referred To Contact Surgical Oncology Diagnoses New patient - Appendix NET - External: Dr. Timmy Hall - Preferred: Oanh Procedures NEW [place]RRA[place] SURGERY Self, Self Suman Baker MD, PhD [address] [place] [address] Referral ID Status Reason Start Date Expiration Date Visits Re quested Visits Authorized [id number] Closed 03/19/2022 04/13/2023 1 1 Reason Comments Follow-up Reason Comments New Patient New diagnosis of sta ge 4 neuroendocrine tumor of the appendix with 1 peritoneal implant referred by Dr. Murdock recent surgery 05/22/22--recovering well but slowly Lab Review Labs completed today prior to appt Other C-diff infection jus t finished course of vancomycin Specialty Diagnoses / Procedures Referred By Katharine t Referred To Contact Oncology Diagnoses Primary malignant neuroendocrine tumor of appendix Carlos Gomes, CAMPAIGN MANAGEMENT SENIOR MANAGER-PROFESSIONAL WRESTLER [address] [place] [address] Andreas Ortega MD, MPH [address] [address] Referral ID Status Reason Start Date Expiration Date V isits Requested Visits Authorized [id number] New Request 06/09/2022 07/04/2023 1 1 Specialty Diagnoses / Procedures Referred By Contac t Referred To Contact Diagnoses Primary malignant neuroendocrine tumor of appendix Procedures NUC PET NEUROENDOCRINE CHG NUC THERAPY HYPERTHYROID SUBSEQUENT Yudelka Moralez, CAMPAIGN MANAGEMENT SENIOR MANAGER-PROFESSIONAL WRESTLER [address] [place] [address] Referral ID Status Reason Start Date Expiration Date Visits Re quested Visits Authorized [id number] Closed 07/08/2022 08/02/2023 1 1 Specialty Diagnoses / Procedures Referred By Contac t Referred To Contact Diagnoses Primary malignant neuroendocrine tumor of appendix Procedures CT ABDOMEN/PELVIS WITH AND WITHOUT CONTRAST CHG CT SCAN,ABDOMENT AND PELVIS,COMBO Andreas Ortega MD, MPH [address] [address] Referral ID Status Reason Start Date Expiration Date Visits Re quested Visits Authorized [id number] Closed 07/08/2022 08/02/2023 1 1 Reason Comments [...] Dizziness. Specialty Diagnoses / Procedures Referred By Contac t Referred To Contact Diagnoses Primary malignant neuroendocrine tumor of appendix Procedures CT NECK WITH CONTRAST DC CT NECK TISSUE CONTRAST Yudelka Moralez, CAMPAIGN MANAGEMENT SENIOR MANAGER-PROFESSIONAL WRESTLER [address] [place], [place] Referral ID Status Reason Start Date Expiration Date Visits Re quested Visits Authorized [id number] Closed 10/07/2022 11/01/2023 1 1 Specialty Diagnoses / Procedures Referred By Contac t Referred To Contact Echocardiography Diagnoses Carcinoid syndrome SOB (shortness of breath) Tachycardia Procedures ECHOCARDIOGRAM DC ECHO HEART XTHORACIC,COMPLETE W DOPPLER Yudelka Moralez APRN-PROFESSIONAL WRESTLER [address] [place], [place] [facility] [place] [address] [place] [address] Referral ID Status Reason Start Date Expiration Date Visits Re quested Visits Authorized [id number] Closed 10/07/2022 11/01/2023 1 1 Specialty Diagnoses / Procedures Referred By Contac t Referred To Contact Diagnoses Carcinoid syndrome SOB (shortness of breath) Tachycardia Primary malignant neuroendocrine tumor of appendix Procedures CT CHEST WITH CONTRAST CHG DIAGNOSTIC COMPUTED TOMOGRAPHY THORAX W/CONTRAST Yudelka Moralez, CAMPAIGN MANAGEMENT SENIOR MANAGER-PROFESSIONAL WRESTLER [address] [place], [place] Referral ID Status Reason Start Date Expiration Date Visits Re quested Visits Authorized [id number] Closed 10/07/2022 11/01/2023 1 1 Reason Comments New Patient Referred by Dorothy Moralez NP for JR. 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 Joint achy/flu symptoms, tachcardia, + HUNTER. 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 Procedures MRI ABDOMEN/PELVIS WITHOUT CONTRAST DC MRI, ABDOMEN (MRI) DC MRI, PELVIS, W/O CONTRAST Yudelka Moralez, CAMPAIGN MANAGEMENT SENIOR MANAGER-PROFESSIONAL WRESTLER [address] [place] [address] Referral ID Status Reason Start Date Expiration Date Visits Re quested Visits Authorized [id number] Closed 03/09/2023 04/02/2024 1 1 Reason Comments Routine Visit Source Comments (unrecognize d section and content) In the event this informatio n is protected by the Federal Confidentiality of Alcohol and Drug Abuse Patient Records regulations: The Federal rules restrict any use of the information to criminally investigate or prosecute any alcohol or drug abuse patient.[facility] Care Teams (unrecognized sec tion and content) Stock Patch Sawyer Relationship Specialty Start Date End Date Erin Sams RN PCP - General 03/19/22 Rodney Olivas MD [facility] [place] [address] Hematology 03/19/22 Stock Patch Sawyer Relationship Specialty Start Date End Date Erin Sams RN PCP - General 03/19/22 Rodney Olivas MD [facility] [place] [address] Hematology 03/19/22 Stock Patch Sawyer Relationship Specialty Start Date End Date Erin Sams RN PCP - General 03/19/22 Rodney Olivas MD [address] [place] [address] Hematology 03/19/22 Stock Patch Sawyer Relationship Specialty Start Date End Date Erin Sams RN PCP - General 03/19/22 Rodney Olivas MD [address] [place] [address] Hematology 03/19/22 Stock Patch Sawyer Relationship Specialty Start Date End Date Erin Sams RN PCP - General 03/19/22 Rodney Olivas MD [address] [place] [address] Hematology 03/19/22 Suman Baker MD, PhD [address] [place] [phone] Surgeon Surgical Oncology 07/08/22 Stock Patch Sawyer Relationship Specialty Start Date End Date Erin Sams RN PCP - General 03/19/22 Rodney Olivas MD [address] [place] [address] Hematology 03/19/22 Suman Baker MD, PhD [address] [place] [phone] Surgeon Surgical Oncology 07/08/22 Stock Patch Sawyer Relationship Specialty Start Date End Date Erin Sams RN PCP - General 03/19/22 Rodney Olivas MD [address] [place] [address] Hematology 03/19/22 Suman Baker MD, PhD [address] [place] [address] Surgeon Surgical Oncology 07/08/22 Stock Patch Sawyer Relationship Specialty Start Date End Date Erin Sams RN PCP - General 03/19/22 Rodney Olivas MD [address] [place] [address] Hematology 03/19/22 Suman Baker MD, PhD [address] [place] [address] Surgeon Surgical Oncology 07/08/22 Cheikh Coelho MD [address] [place] [address] Regulatory Compliance Director Cardiovascular Disease 10/07/22 Stock Patch Sawyer Relationship Specialty Start Date End Date Erin Sams RN PCP - General 03/19/22 Rodney Olivas MD [address] [place] [address] Hematology 03/19/22 Suman Baker MD, PhD [address] [place] [address] Surgeon Surgical Oncology 07/08/22 Cheikh Coelho MD [address] [place] [address], [place] [address] Regulatory Compliance Director Cardiovascular Disease 10/07/22 Stock Patch Sawyer Relationship Specialty Start Date End Date Erin Sams RN PCP - General 03/19/22 Rodney Olivas MD [address] [place] [address] Hematology 03/19/22 Suman Baker MD, PhD [address] [place] [address] Surgeon Surgical Oncology 07/08/22 Cheikh Coelho MD [address] [place] [address] Regulatory Compliance Director Cardiovascular Disease 10/07/22 Stock Patch Sawyer Relationship Specialty Start Date End Date Erin Sams RN PCP - General 03/19/22 Rodney Olivas MD [address] [place] [address] Hematology 03/19/22 Suman Baker MD, PhD [address] [place] [address] Surgeon Surgical Oncology 07/08/22 Cheikh Coelho MD [address] [place] [address] Regulatory Compliance Director Cardiovascular Disease 10/07/22 Stock Patch Sawyer Relationship Specialty Start Date End Date Erin Sams RN PCP - General 03/19/22 Rodney Olivas MD [address] [place] [address] Hematology 03/19/22 Suman Baker MD, PhD [address] [place] [address] Surgeon Surgical Oncology 07/08/22 Cheikh Coelho MD [address] [place] [address] Regulatory Compliance Director Cardiovascular Disease 10/07/22 Stock Patch Sawyer Relationship Specialty Start Date End Date Erin Sams CNP [address] [place] [address] PCP - General 03/10/23 Rodney Olivas MD [address] [place] [address] Hematology 03/19/22 Suman Baker MD, PhD [address] [place] [address] Surgeon Surgical Oncology 07/08/22 Cheikh Coelho MD [address] [place] [address] Regulatory Compliance Director Cardiovascular Disease 10/07/22 Stock Patch Sawyer Relationship Specialty Start Date End Date Erin SamsTASH [address] [place] [address] PCP - General 03/10/23 Rodney Olivas MD [address] [place] [address] Hematology 03/19/22 Suman Baker MD, PhD [address] [place] [address] Surgeon Surgical Oncology 07/08/22 Cheikh Coelho MD [address] [place] [address] Regulatory Compliance Director Cardiovascular Disease 10/07/22 Scheduled Active and Recently Administ ered Medications (unrecognized section and content) Medication Order 05/27/2022 05/28/2022 05/29/2022 acetaminophen (TYLENOL) tablet 975 mg 975 mg, Oral, EVERY 8 HOURS, First dose on Wed05/26/22 at 1615, Until Discontinued, Maximum dose of acetaminophen is 4000 mg from all sources in 24 hours. 0700 (Given - Provider: Yadira Grier RN)1350 (Given - Provider: Alena Wade, RUPERT)2040 (Given - Provider: Craig Pagan, RUPERT) 0603 (Given - Provider: Craig Pagan RN)1213 (Given - Provider: Yvrose Chamberlain RN)2134 (Given - Provider: Craig Pagan RN) 0613 (Given - Provider: Craig Pagan, RUPERT)1400 (Canceled Entry - Provider: System Discharge - Comment: Automatically canceled at discontinue of medication order) Enoxaparin Sodium (LOVENOX) injection 40 mg (COMPLETED) 40 mg, Subcutaneous, EVERY 24 HOURS, 1 dose, First dose (after last modification) on Wed05/27/22 at 1600, , Indications: DVT/PE prophylaxis 1847 (Given - Provider: Alena Wade, RUPERT) Enoxaparin Sodium (LOVENOX) injection 40 mg 40 mg, Subcutaneous, EVERY 24 HOURS, First dose (after last reorder) on Wed05/28/22 at 1400, Until Discontinued, , Indications: DVT/PE prophylaxis 1418 (Given - Provider: Tania Louis, RUPERT) 1400 (Canceled Entry - Provider: System Discharge [...] Yadira Grier RN)0700 (Given - Provider: Yadira Grier, RUPERT)1350 (Given - Provider: Alena Wade RN)1847 (Given - Provider: Alena Wade RN)2324 (Not Given - Provider: Craig Pagan, RUPERT - Reason: Patient/family refused) 0604 (Given - Provider: Craig Pagan, RN)1213 (Given - Provider: Yvrose Chamberlain RN)1730 (Given - Provider: Tania Louis RN) 0134 (Not Given - Provider: Craig Pagan, RN - Reason: Patient/family refused)0613 (Given - Provider: Craig Pagan, RN)1200 (Canceled Entry - Provider: System Discharge - Comment: Automatically canceled at discontinue of medication order) magnesium sulfate 1 g in dextrose 5% 100 mL premix IVPB (COMPLETED) 1 g, Intravenous, Administer over 60 Minutes, ONCE, 1 dose, On Wed05/27/22 at 0545 0708 ($$New Bag$$ - Provider: Yadira Grier RN)0708 (Rate/Dose Verify - Provider: Alena Wade RN)0708 (Rate/Dose Verify - Provider: Alena Wade RN)0709 (Rate/Dose Verify - Provider: Alena Wade RN)0809 (Stopped - Provider: Alena Wade RN) [...] Indications: GERD 904 (Given - Provider: Alena Wade, RUPERT) pantoprazole (PROTONIX) tablet DR 40 mg 40 mg, Oral, DAILY, First dose on Eliana 05/28/22 at 0915, Until Discontinued, Swallow whole; do not crush or chew., Indications: GERD 0916 (Given - Provider: Tania Louis RN) 0744 (Given - Provider: Tania Louis RN) senna (SENOKOT) tablet 8.6 mg 8.6 mg, Oral, DAILY, First dose on Wed05/27/22 at 0900, Until Discontinued 0905 (Given - Provider: Alena Wade RN) 0916 (Given - Provider: Tania Louis RN) 0744 (Given - Provider: Tania Louis RN) Continuous Medication Order 05/27/2022 05/28/2022 05/29/2022 bupivacaine (MARCAINE) 0.125% and fentaNYL (SUBLIMAZE) 4 mcg/mL epidural (CANCELED) Epidural, CONTINUOUS, Starting on Wed05/22/22 at 0745, Until Eliana 05/28/22 at 0912, To be managed and titrated by provider only. 0304 (Rate/Dose Verify - Provider: Yadira Grier RN)0659 (Epidural [place] Volume/Shift Total - Provider: Yadira Grier RN - Comment: shift total: 175 ml remaining)1105 (Rate/Dose Verify - Provider: Alena Wade RN)1122 (Rate/Dose Verify - Provider: Alena Wade RN)1459 (Rate/Dose Verify - Provider: Alena Wade RN)1555 (Rate/Dose Verify - Provider: Alena Wade RN)1848 (Rate/Dose Verify - Provider: Alena Wade RN)1849 (Rate/Dose Verify - Provider: Alena Wade RN)1910 (Epidural [place] Volume/Shift Total - Provider: Alena Wade RN - Comment: 100mL left in cartridge) 0100 (Epidural [place] Volume/Shift Total - Provider: Craig Pagan RN [...] 1453 0304 (Rate/Dose Verify - Provider: Yadira Grier, RN)0308 (Paused - Provider: Yadira Grier, RN)0309 (Restarted - Provider: Yadira Grier, RN)0633 (Paused - Provider: Yadira Grier, RN)0633 (Restarted - Provider: Yadira Grier, RN)0659 (Rate/Dose Verify - Provider: Yadira Grier, RN)0909 ($$New Bag$$ - Provider: Alena Wade RN)1122 (Rate/Dose Verify - Provider: Alena Wade RN)1227 (Paused - Provider: Alena Wade, RN)1239 (Restarted - Provider: Alena Wade RN)1459 (Rate/Dose Verify - Provider: Alena Wade, RN)1555 (Rate/Dose Verify - Provider: Alena Wade, RN)1846 (Canceled Entry - Provider: Alena Wade RN)1847 (Rate/Dose Change - Provider: Alena Wade RN)1848 (Rate/Dose Verify - Provider: Alena Wade RN)1849 (Rate/Dose Verify - Provider: Alena Wade RN) 0046 (Rate/Dose Verify - Provider: Craig Pagan, RUPERT)0048 (Rate/Dose Verify - Provider: Craig Pagan, RN)0307 (Rate/Dose Verify - Provider: Craig Pagan, RN)0613 (Rate/Dose Verify - Provider: Tania Louis RN)0709 (Rate/Dose Verify - Provider: Tania Louis RN)0943 (Rate/Dose Verify - Provider: Tania Louis, RN)1215 (Rate/Dose Verify - Provider: Tania Louis, RN)1354 (Rate/Dose Verify - Provider: Tania Louis, RN)1502 (Stopped - Provider: Tania Louis RN) PRN Medication Order 05/27/2022 05/28/2022 05/29/2022 benzocaine-menthol (CEPACOL) 15-3.6 MG per lozenge 1 lozenge 1 lozenge, Oral, NEEDED, Starting on 05/23/22 at 1241, Until Wed05/29/22 at 1402, Sore [...] Oral, EVERY 4 HOURS NEEDED, Starting on Eliana 05/28/22 at 1239, Until Wed05/29/22 at 1402, Moderate Pain 1302 (See Alternative - Provider: Yvrose Chamberlain RN)173 (See Alternative - Provider: Tania Louis RN)2133 (See Alternative - Provider: Craig Pagan, RN) 042 (See Alternative - Provider: Craig Pagan RN)0854 (See Alternative - Provider: Tania Louis RN) oxyCODONE HCl (ROXICODONE) tablet 10 mg(Linked Group 3) 10 mg, Oral, EVERY 4 HOURS NEEDED, Starting on Eliana 05/28/22 at 1239, Until Wed05/29/22 at 1402, Severe Pain 1302 (Given - Provider: Yvrose Chamberlain RN)173 (Given - Provider: Tania Louis RN)2133 (Given - Provider: Craig Pagan RN) 042 (Given - Provider: Craig Pagan RN)0854 (Given [...] Wade RN)1122 (Rate/Dose Verify - Provider: Alena Wade, RN)1225 (Paused - Provider: Alena Wade, RN)1239 (Restarted - Provider: Alena Wade, RN)1312 (Paused - Provider: Alena Wade, RN)1314 (Restarted - Provider: Alena Wade RN)1459 (Rate/Dose Verify - Provider: Alena Wade RN)1555 (Rate/Dose Verify - Provider: Alena Wade RN)1726 (Paused - Provider: Alena Wade RN)1731 (Restarted - Provider: Alena Wade RN)1848 (Rate/Dose Verify - Provider: Alena Wade RN)184 (Rate/Dose Verify - Provider: Alena Wade RN)1958 (Paused - Provider: Craig Pagan RN)2003 (Restarted - Provider: Craig Pagan RN)2036 (Stopped - Provider: Craig Pagan RN)2038 (Stopped - Provider: Craig Pagan RN) Linked Groups Order Group 1: diphenhydrAMINE [...] Oral, EVERY 4 HOURS NEEDED, Starting on Eliana 05/28/22 at 1239, Until Wed05/29/22 at 1402, Moderate Pain Or oxyCODONE HCl (ROXICODONE) tablet 10 mgJump to med 10 mg, Oral, EVERY 4 HOURS NEEDED, Starting on Eliana 05/28/22 at 1239, Until Wed05/29/22 at 1402, Severe [...] BE BASED ON THE PRIMARY CLINICAL RECORDS. [employer] [facility]. provides no warranty or guarantee of the accuracy or completeness of information in this document.
== END 2023-09-06 20:22 | disposition home or self-care (01) ==
LOC: LAB 20:21
PROVIDERS: PCP Nurse Practitioner Family; Visit Provider Obstetrics & Gynecology
DX: Z34.93 Encounter for supervision of normal pregnancy, unspecified, third trimester (principal)
CPT/HCPCS: 87081

== ENCOUNTER 2023-09-20 15:03 | Outpatient (OUT) | payer OTHER, SELFPAY ==
--- NOTE | 2023-09-20 15:05 | US_ITS ---
[address] [address] Patient Name: KRYS MARTINEZ MRN: [id number] date: 1995 Sex: F Assigned Patient Location: [facility] Current Patient Location: Accession/Order Number: [id number] Exam Date: 09/20/2023 15:05 Report Date: 09/21/2023 06:58 At the request of: MCKENZIE WHIPPLE Procedure: US OB growth EXAMINATION: US OB growth HISTORY: LGA COMPARISON: 03/04/2023 FINDINGS: Heart Rate: 143.0 bpm Amniotic Fluid Volume: 19.1 cm Number: 1.0 Position: CEPHALIC Maximum Vertical Pocket: 5.8 cm cm 4.5 cm cm 6.3 cm cm 2.5 cm cm BIOMETRY: BPD: 9.0 cm cm; 36 weeks 2 days; 28% HC: 33.2 cmcm; 37 weeks 6 days , 27% AC: 35.2 cm cm; 39 weeks 1 days, 92% FL: 7.1 cm cm; 36 weeks 3 days; 17.4 % % EFW: 3366.2 grams, 7 lbs. 11 oz., 65% FL/AC: 20.2 FL/BPD: 79.2 HC/AC: 0.9 GESTATIONAL AGE: Age by EDC: 37 weeks 6 days AMY by EDC: 10/05/2023 Age by US: 37 weeks 3 days AMY by US: 10/08/2023 US/US OB growth IMPRESSION: Normal interval growth Electronically authenticated by: NAWAF RUIZ Date: 09/21/2023 06:58
== END 2023-09-20 15:04 | disposition home or self-care (01) ==
LOC: NOMS 15:03
PROVIDERS: PCP Nurse Practitioner Family; Visit Provider Obstetrics & Gynecology
DX: O36.60X0 Maternal care for excessive fetal growth, unspecified trimester, not applicable or unspecified (principal); Z3A.37 37 weeks gestation of pregnancy
CPT/HCPCS: 76816

== ENCOUNTER 2023-09-25 11:15 | Inpatient (IN) | payer OTHER, SELFPAY ==
[2023-09-25] VITALS (23 sets, daily range): BP systolic 88–152; BP diastolic 45–97; PULSE 69–95; RESP 7–31; TEMP 36–36.7; O2SAT 94–97
--- OUTSIDE RECORDS SUMMARY | 2023-09-25 11:22 | XMS_ITS | CCD ---
Author Name Unknown Address [address] [place] [address] Organization [facility] Care Team Providers Care Training And Development Director Name Role Phone Ava Lundberg Unavailable Unavailable Primary Care Provider Unavailemanuel Sams RN, Erin Primary Care Provider Unavaildanielle Olivas MD, Stevens Unavailable Latrell EMERY, Erin Primary Care Provider Unavaildanielle Olivas MD, Rodney Unavailable Oanh DUPONT, PhD, Suman C Unavailable Cheikh Coelho MD Unavailable ERIN SAMS [...] Care Unavailable IAN LOPEZ Admitting Unavailable IAN LPOEZ Attending Unavailable TIMMY SHAY Unavailable ELIAS ARMANDO Consulting Unavailable LATRELL, ERIN Primary Care Unavailable DR CAROLYN WALSH Consulting Unavailable ERIN SAMS Attending Unavailable ERIN SAMS Admitting Unavailable LATRELL ERIN Consulting Unavailable LATRELL, ERIN Primary Care Unavailable SARAHI OLIVA Attending Unavailable SARAHI OLIVA Admitting Unavailable SARAHI OLIVA Consulting Unavailable LATRELL, ERIN Primary Care Unavailable [facility] [place] [place] DOCTOR Admitting Unavailable MISC, DOCTOR Consulting [...] ADIS, DR SARAHI Quarles Consulting Unavailable LATRELL, EIRN Primary Care Unavailable GRILLIS ., DR TIMMY [...] Suman Naylor Unavailable Cheikh Coelho MD Unavailable [phone] Erin Sams CNP Primary Care Provider [...] BAKER Attending Unavailable SELF, SELF Referring Unavailable Unavailable Primary Care Provider UnavailRON Clements Attending Unavailable LIZBET CAST Attending Unavailable ALDEN, RON Attending Unavailable ALDEN, RON Attending Unavailable ALDEN, RON Attending Unavailable ALDEN, RON Attending Unavailable ALDEN, RON Attending Unavailable Allergies Allergy Classification Reported Allergen(s) Allergy Type Date of Onset Reaction(s) Facility (10 sources) gabapentin Drug Allergy 10-07-2022 Nausea Only, Diarrhea [facility] Medications Current Medications Medication Drug Class(es) Dates Sig (Normalized) Sig (Original) amylase 520347 unt / lipase 63544 unt / protease [id number] unt delayed release oral capsule (8 sources) Start: 09-10-2022 Pancrelipase, Evo-Jmru-Bddf, (Creon) 74219-822037 units Cap DR Particles Indications: Exocrine pancreatic [...] morning. 0 Active 500 ml albumin human, skilled nursing 50 mg/ml injection (1 source) Human Serum [...] capsule (5 sources) Anti-epileptic Agent Start: 09-11-19 End: 11-11-19 take 2 capsules by mouth three times [...] oral spray 2 spray polyethylene glycol 3350 89257 mg powder for oral solution (2 sources) Osmotic Laxative Start: 04-23-2022 End: 06-09-2022 polyethylene glycol 17 GM/SCOOP Powder powder 11 AM: Take entire contents over 2 hours as instructed. 250 g 0 04/23/2022 06/09/2022 Discontinued (Therapy completed) 100 ml potassium chloride 0.1 meq/ml injection (1 source) Start: 05-22-2022 End: 05-22-2022 potassium chloride 10 mEq in sterile water 100 ml premix IVPB sennosides, skilled nursing 8.6 mg oral tablet (3 sources) Start: [...] 08-14-2022 Episodic Other aftercare (1 source) Other mcfp (current) drug therapy; Translations: [OTH RETIREMENT CURRENT DRUG THERAPY] Onset: 04-09-2022 Episodic Other [...] Aon 03-11-2023 Chromogranin A <20 Normal <93 [facility] Comment on above: Result Comment: ADDITIONAL INFORMATION This test was developed and its performance characteristics determined by [facility] in a manner consistent with CLIA [...] a homogeneous time-resolved immunofluorescent assay manufactured by [employer] and performed on the [employer] Kryptor Compact Plus. Values obtained with different assay methods or kits may be different and cannot be used interchangeably. Test results cannot be interpreted as absolute evidence for the presence or absence of malignant disease. Test Performed by: [facility] [address] [place] [address] Pipe Fitter [employer]: Ed Russo M.D. Ph.D.; CLIA# [id number] Performed By: #### C A, IPB, CHM7, MGO #### [facility] ([facility]) [address] [place] [address] MRI ABDOMEN/PELVIS WITHOUT C [facility] 03-11-2023 MRI ABDOMEN/PELVIS WITHOUT CONTRAST EXAM: [...] not well visualized on this exam. Normal [facility] IMPRESSION: 1. Stable postoperative changes from right [...] bony structures reveal normal marrow signal. RADIOLOGY IsMandi mayo DO - 03/11/2023 EXAM: MRI ABDOMEN/PELVIS WITHOUT [...] is not well visualized on this exam. [facility] Radiology Study observation (narrative) [facility] MRI ABDOMEN/PELVIS WITHOUT C ONTRASTOrdered By: Mandi Montiel on 03-11-2023 [facility] Work Phone: CT ABDOMEN/PELVIS WITH AND [...] nodes and have decreased in size. Normal [facility] CT CHEST WITH CONTRASTon CT CHEST WITH [...] have reviewed and approved this report. Normal [facility] CT Chest W contrast Jason IMPRESSION: Stable [...] I have reviewed and approved this report. [facility] CT Chest W contrast IVOrdere d By: Benjamin Santos on 10-23-2022 [facility] CT Chest W contrast Jason Radiology Study observation (narrative) [facility] CT NECK WITH CONTRASTon 04-0 CT [...] mass or adenopathy in the neck. Normal [facility] CT Neck W contrast Jason -0 IMPRESSION: Examination is within normal limits. Negative [...] for mass or adenopathy in the neck. [facility] Radiology Study observation (narrative) [facility] CT Neck W contrast IVOrdered By: Miguel Espinal on 10-22-2022 [facility] Work Phone: Cardiac echo study Procedure Ordered By: Guerrero Carvalho on 10-22-2022 Ao peak raj 1.26 m/s [facility] Work Phone: Ao VTI 19.98 cm [facility] Work Phone: Ascending aorta 2.62 cm [facility] Work Phone: AV LVOT peak gradient 3 [facility]: AV mean gradient 3 mmHg [facility] Work Phone: AV peak gradient 6 mmHG [facility] Work Phone: AV valve area 2.24 cm2 [facility] Work Phone: AV Velocity Ratio 0.70 [facility] Work Phone: FRANK (continuity Vmax) 1.82 cm2 [facility] Work Phone: FRANK (continuity VTI) 2.24 cm2 [facility] Work Phone: FRANK index (continuity Vmax) 1.06 m/s [facility] Work Phone: FRANK index (continuity VTI) 1.30 cm2/m2 [facility] Work Phone: Avg e' pk raj 0.15 m/s [facility] Work Phone: Avg E/e' ratio 4.89 [facility] Work Phone: Body surface area Derived from formula 1.72 m2 [facility] Work Phone: BP EF 62 % [facility] Work Phone: DI (Vmax) 0.70 [facility] Work Phone: DI (VTI) 0.86 m/2 [facility] Work Phone: E wave decelartion time 217.58 msec [facility] Work Phone: e' lateral pk raj 0.1597 m/s [facility] Work Phone: e' lateral pk raj 0.16 [facility]: e' septal pk raj 0.1401 m/s [facility] Work Phone: e' septal pk raj 0.14 m/s [facility] Work Phone: E/A ratio 0.74 [facility] Work Phone: E/e' lateral ratio 4.57 [facility] Work Phone: E/e' septal ratio 5.21 [facility] Work Phone: EF SP 2CH 64 [facility] Work Phone: EF SP 4CH 59 [facility] Work Phone: FS 33 % 28 - 44 % [facility] Work Phone: IVC ostium 1.46 cm [facility] Work Phone: IVS 0.61 cm [facility] Work Phone: LA AREA 2CH 13.72 cm2 [facility] Work Phone: LA area 4CH 9.33 cm2 [facility] Work Phone: LA ESV BP (MOD) 29 mL [facility] Work Phone: LA ESV BP (MOD) index 17 mL/m2 [facility] Work Phone: LA ESV SP 2CH (MOD) 37 mL [facility] Work Phone: LA ESV SP 4CH (MOD) 19 mL [facility] Work Phone: Long Strain -21.7 % [facility] Work Phone: LV EDV BP 71 mL [facility] Work Phone: LV EDV SP 2CH 76 mL [facility] Work Phone: LV EDV SP 4CH 61 mL [facility] Work Phone: LV ESV BP 27 mL [facility] Work Phone: LV ESV SP 2CH 27 mL [facility] Work Phone: LV ESV SP 4CH 25 mL [facility] Work Phone: LV mass 68.53 g [facility] Work Phone: LV Mass Index 39.8 g/m2 [facility] Work Phone: LV RWT 0.30 [facility] Work Phone: LV stroke volume BP (ml) 44 mL [facility] Work Phone: LV stroke volume index BP 25.58 mL/m2 [facility] Work Phone: LVIDD 4.10 cm [facility] Work Phone: LVIDS 2.73 cm [facility] Work Phone: LVOT area 2.60 cm2 [facility] Work Phone: LVOT diameter 1.82 cm [facility] Work Phone: LVOT peak raj 0.88 m/s [facility] Work Phone: LVOT peak VTI 17.19 cm [facility] Work Phone: LVOT stroke volume 45 cm3 [facility] Work Phone: LVOT stroke volume index 25.99 ml/m2 [facility] Work Phone: MV pk A raj 0.98 m/s [facility] Work Phone: MV pk E raj 0.73 m/s [facility] Work Phone: MV stenosis pressure 1/2 time 63.10 ms [facility] Work Phone: MV valve area p 1/2 method 3.49 cm2 [facility] Work Phone: OSU AV VTI RATIO PRE STRESS 0.86 [facility] Work Phone: OSU ECHO LV BIPLANE SYSTOLIC VOLUME INDEX 15.70 mL/m2 [facility] Work Phone: OSU ECHO LV BP DIASTOLIC VOLUME INDEX 41.28 mL/m2 [facility] Work Phone: PV peak gradient 4 mmHg [facility] Work Phone: PV PK RAJ 0.97 m/s [facility] Work Phone: PW 0.61 cm [facility] Work Phone: RA vol index 4CH (MOD) 12.79 mL/m2 [facility] Work Phone: Right atrium volume 4 chamber method of disks 22 mL [facility] Work Phone: RV Area diastolic 21.85 cm2 [facility] Work Phone: RV Area systolic 11.51 cm2 [facility] Work Phone: RV basal diam 3.02 cm [facility] Work Phone: RV Fractional area change 47.3 % [facility] Work Phone: RV long diam 7.35 cm [facility] Work Phone: RV Long Strain -28.0 % [facility] Work Phone: RV mid diam 2.68 cm [facility] Work Phone: RV S' 12.55 cm/s [facility] Work Phone: RVOT peak gradient 1 mmHg [facility] Work Phone: RVOT peak raj 0.59 m/s [facility] Work Phone: Sinus 2.70 cm [facility] Work Phone: STJ 2.41 cm [facility] Work Phone: Stroke Volume 45 cm/mL [facility] Work Phone: Stroke volume index [facility]: TAPSE 2.03 cm [facility] Work Phone: [facility] Work Phone: Cardiac echo study Procedure [...] ventricular strain) was performed. Imaging system used: [email or web address]. Indications Indications for study: chest pain, other, tachycardia and shortness of breath - Neuroendocrine tumor, LAMN. Wall Scoring Score Index: 1.00 The left ventricular wall motion is normal. [facility] Radiology Study observation (narrative) [facility] ECHOCARDIOGRAMon 10-22-2022 Echocardiography ? Left Ventricle: [...] Role Read Date Guerrero Carvalho MD Test Deicer Tester, [place] 10/22/2022 Wall Scoring Score Index: 1.00 The [...] RA vol (more content not included)... Normal [facility] B-TYPE NATRIURETIC PEPTIDE ( BRAIN)on 10-07-2022 Interpretation and review of laboratory results Normal [facility] Natriuretic peptide B (Bld) [Mass/Vol] 4 pg/mL 0 - 100 pg/mL [facility] Natriuretic peptide B (Bld) [Mass/Vol] 4 pg/mL Normal 0-100 [facility] Comment on above: Performed By: #### C Danielle, RODRIGO, HUBERT, MGAnanda #### [facility] (DEFAULT) [address] [place] [address] CBC AND ELECTRONIC DIFFon Basophils (Bld) [#/Vol] 0.04 10*3/uL Normal 0.00-0.15 [facility] Comment on above: Performed By: #### C Danielle, IPB, CHM7, MGO #### [facility] (DEFAULT) [address] [place] [address]38 Basophils/100 WBC (Bld) 0.6 % Normal [facility] Comment on above: Performed By: #### C A, IPB, CHM7, MGO #### [facility] (DEFAULT) [address] [place] [address]151 DIFF STATUS Electronic Differential Normal [facility] Comment on above: Performed By: #### Dayday Santos, IPB, CHM7, MGO #### [facility] (DEFAULT) [address] [place] [address] 39016 Eosinophils (Bld) [#/Vol] 0.18 10*3/uL Normal 0.00-0.42 [facility] Comment on above: Performed By: #### C A, IPB, CHM7, MGO #### [facility] (DEFAULT) [address] [place] [address] 21447 Eosinophils/100 WBC (Bld) 2.5 % Normal [facility] Comment on above: Performed By: #### C A, IPB, CHM7, MGO #### [facility] (DEFAULT) [address] [place] [address] 32278 Hematocrit (Bld) [Volume fraction] 39.3 % Normal 34.9-44.3 [facility] Comment on above: Performed By: #### C A, IPB, CHM7, MGO #### [facility] (DEFAULT) [address] [place] [address] 29220 Hemoglobin (Bld) [Mass/Vol] 12.5 g/dL Normal 11.4-15.2 [facility] Comment on above: Performed By: #### C A, IPB, CHM7, MGO #### [facility] (DEFAULT) [address] [place] [address] 19061 Immature Grans % 0.4 % Normal [facility] Comment on above: Performed By: #### Dayday Santos, IPB, CHM7, MGO #### [facility] (DEFAULT) [address] [place] [address] 11130 Immature Grans Absolute < Normal <=0.08 [facility] Comment on above: Performed By: #### Dayday Santos, IPB, CHM7, MGO #### [facility] (DEFAULT) [address] [place] [address] 40845 Lymphocytes (Bld) [#/Vol] 2.19 10*3/uL Normal 1.16-3.51 [facility] Comment on above: Performed By: #### Dayday Santos, IPB, CHM7, MGO #### [facility] (DEFAULT) [address] [place] [address] 04626 Lymphocytes/100 WBC (Bld) 30.6 % Normal [facility] Comment on above: Performed By: #### Dayday A, IPB, CHM7, MGO #### [facility] (DEFAULT) [address] [address] MCV (RBC) [Entitic vol] 84.2 fL Normal 79.6-97.7 [facility] Comment on above: Performed By: #### Dayday Santos, IPB, CHM7, MGO #### [facility] (DEFAULT) [address] [place] [address] 02832 Mean Cell Hgb 26.8 pg Normal 25.9-33.9 [facility] Comment on above: Performed By: #### Dayday A, IPB, CHM7, MGO #### [facility] (DEFAULT) [address] [place] [address] 96270 Mean Cell Hgb Conc 31.8 g/dL Normal 31.4-35.9 [facility] Comment on above: Performed By: #### Dayday A, IPB, CHM7, MGO #### [facility] (DEFAULT) [address] [place] [address] 46093 Monocytes (Bld) [#/Vol] 0.50 10*3/uL Normal 0.22-0.87 [facility] Comment on above: Performed By: #### C A, IPB, CHM7, MGO #### [facility] (DEFAULT) [address] [place] [address] 86967 Monocytes/100 WBC (Bld) 7.0 % Normal [facility] Comment on above: Performed By: #### C A, IPB, CHM7, MGO #### [facility] (DEFAULT) [address] [place] [address] 84203 Nucleated RBC 0.0 /100 WBC Normal <=0.2 [facility] Comment on above: Performed By: #### C A, IPB, CHM7, MGO #### [facility] (DEFAULT) [address] [place] [address] 96316 Platelet mean volume (Bld) [Entitic vol] 9.5 fL Normal 8.5-12.2 [facility] Comment on above: Performed By: #### C A, IPB, CHM7, MGO #### [facility] (DEFAULT) [address] [place] [address] 73792 Platelets (Bld) [#/Vol] 355 10*3/uL Normal 150-393 [facility] Comment on above: Performed By: #### C A, IPB, CHM7, MGO #### [facility] (DEFAULT) [address] [place] [address] 83413 RBC (Bld) [#/Vol] 4.67 10*6/uL Normal 3.91-5.04 [facility] Comment on above: Performed By: #### C A, IPB, CHM7, MGO #### [facility] (DEFAULT) [address] [place] [address] 04517 RBC Distribution 13.2 % Normal 10.8-14.9 [facility] Comment on above: Performed By: #### C A, IPB, CHM7, MGO #### [facility] (DEFAULT) [address] [place] [address] 23641 Segs + Bands Auto 58.9 % Normal [facility] Comment on above: Performed By: #### C A, IPB, CHM7, MGO #### [facility] (DEFAULT) [address] [place] [address]800 Segs + Bands,Absolute Auto 4.22 K/uL Normal 1.64-7.28 [facility] Comment on above: Performed By: #### C A, IPB, CHM7, MGO #### [facility] (DEFAULT) [address] [place] [address] 99165 WBC (Bld) [#/Vol] 7.16 10*3/uL Normal 3.99-11.19 [facility] Comment on above: Performed By: #### C A, IPB, CHM7, MGO #### [facility] (DEFAULT) [address] [place] [address]771 CHROMOGRANIN Aon 10-07-2022 Chromogranin A <20 Normal <93 [facility] Comment on above: Result Comment: ADDITIONAL INFORMATION This test was developed and its performance characteristics determined by [facility] in a manner consistent with CLIA [...] a homogeneous time-resolved immunofluorescent assay manufactured by [employer] and performed on the [employer] Kryptor Compact Plus. Values obtained with different assay methods or kits may be different and cannot be used interchangeably. Test results cannot be interpreted as absolute evidence for the presence or absence of malignant disease. Test Performed by: [facility] [address] [place] [address] Pipe [employer]: Ed Russo M.D. Ph.D.; CLIA# [id number] Performed By: #### Y CHGRA #### [facility] (DEFAULT) [address] [address] COMPREHENSIVE METABOLIC PANE Shamir 10-07-2022 Albumin [Mass/Vol] 4.7 g/dL Normal 3.5-5.0 [facility] Comment on above: Performed By: #### Y CHGRA #### [facility] (DEFAULT) [address] [address] ALP [Catalytic activity/Vol] 53 U/L Normal 32-126 [facility] Comment on above: Performed By: #### Y CHGRA #### [facility] (DEFAULT) [address] [address] ALT [Catalytic activity/Vol] 25 U/L Normal 9-48 [facility] Comment on above: Performed By: #### Y CHGRA #### [facility] (DEFAULT) [address] [address] Anion gap [Moles/Vol] 12 mmol/L Normal 7-17 [facility] Comment on above: Performed By: #### Y CHGRA #### [facility] (DEFAULT) [address] [address] AST [Catalytic activity/Vol] 16 U/L Normal 10-39 [facility] Comment on above: Performed By: #### Y CHGRA #### [facility] (DEFAULT) [address] [address] Bilirubin [Mass/Vol] 0.4 mg/dL Normal <1.5 [facility] Comment on above: Performed By: #### Y CHGRA #### [facility] (DEFAULT) [address] [place] [address] Calcium [Mass/Vol] 9.5 mg/dL Normal 8.6-10.5 [facility] Comment on above: Performed By: #### Y CHGRA #### [facility] (DEFAULT) [address] [place] [address] 95063 Chloride [Moles/Vol] 101 mmol/L Normal 98-108 [facility] Comment on above: Performed By: #### Y CHGRA #### [facility] (DEFAULT) [address] [place] [address] 14141 CO2 [Moles/Vol] 28 mmol/L Normal 21-31 [facility] Comment on above: Performed By: #### Y CHGRA #### [facility] (DEFAULT) [address] [place] [address] 67831 Creatinine [Mass/Vol] 0.66 mg/dL Normal 0.50-1.20 [facility] Comment on above: Performed By: #### Y CHGRA #### [facility] (DEFAULT) [address] [place] [address] 09870 eGFR, CKD-EPI, Female > Normal >=60 [facility] Comment on above: Result Comment: Repo rted eGFR is based on the CKD-EPI 2020 equation using creatinine, age, and sex. Performed By: #### Y CHGRA #### [facility] (DEFAULT) [address] [place] [address] 17144 Glucose [Mass/Vol] 103 mg/dL High 70-99 [facility] Comment on above: Performed By: #### Y CHGRA #### [facility] (DEFAULT) [address] [place] [address] 12949 Osmolality [Osmolality] 286 mosm/kg Normal 278-305 [facility] Comment on above: Performed By: #### Y CHGRA #### [facility] (DEFAULT) [address] [place] [address] 77504 Potassium [Moles/Vol] 4.0 mmol/L Normal 3.5-5.0 [facility] Comment on above: Performed By: #### Y CHGRA #### [facility] (DEFAULT) [address] [place] [address] 08703 Protein [Mass/Vol] 7.6 g/dL Normal 6.4-8.3 [facility] Comment on above: Performed By: #### Y CHGRA #### [facility] (DEFAULT) [address] [place] [address] 81447 Sodium [Moles/Vol] 137 mmol/L Normal 135-145 [facility] Comment on above: Performed By: #### Y CHGRA #### [facility] (DEFAULT) [address] [place] [address] 00916 Urea nitrogen [Mass/Vol] 9 mg/dL Normal 7-25 [facility] Comment on above: Performed By: #### Y CHGRA #### [facility] (DEFAULT) [address] [place] [address] 15315 Urea nitrogen/Creatinine [Mass ratio] 14 mg/mg Normal [facility] Comment on above: Performed By: #### Y CHGRA #### [facility] (DEFAULT) [address] [place] [address] 01667 HIGH SENSITIVITY TROPONIN I - SINGLE ORDERon 10-07-2022 Interpretation and review of laboratory results Normal [facility] Troponin I.cardiac High sensitivity method [Mass/Vol] ng/L NINF - 34 ng/L [facility] hs-Troponin I <3 Normal <34 [facility] Comment on above: Order Comment: Acute Coronary Syndrome (ACS): Initial Evaluation and [email or web address] Performed By: #### C A, IPBrett, CHM7, MGO #### [facility] (DEFAULT) [address] [address] LACTATE DEHYDROGENASEon 09-17 LD Total 114 U/L Normal 100-190 [facility] Comment on above: Performed By: #### Y CHGRA #### [facility] (DEFAULT) [address] [address] MONOon 10-02-2022 Monocytes (Bld) [#/Vol] Negative Normal NEGATIVE [facility] Comment on above: Performed By: #### L IVER, LDH, BMP #### [facility] [address] [place] [address] Dr. Esthela Stevens CBC AUTO DIFFon 09-30-2022 BASO # 0.1 103/ul Normal 0.0-0.1 [facility] Comment on above: Performed By: #### L IVER, LDH, BMP #### [facility] [address] [place] [address] Dr. Esthela Stevens Basophils/100 WBC (Bld) 0.8 % Normal 0.2-2.0 [facility] Comment on above: Performed By: #### L IVER, LDH, BMP #### [facility] [address] [place] [address] Dr. Esthela Stevens EO # 0.1 103/ul Normal 0.0-0.7 [facility] Comment on above: Performed By: #### L IVER, LDH, BMP #### [facility] [address] [place] [address] Dr. Esthela Stevens Eosinophils/100 WBC (Bld) 1.7 % Normal 0.9-7.0 [facility] Comment on above: Performed By: #### L IVER, LDH, BMP #### [facility] [address] [place] [address] Dr. Esthela Stevens Erythrocyte distribution width (RBC) [Ratio] 13.1 % Normal 11.0-15.0 [facility] Comment on above: Performed By: #### L IVER, LDH, BMP #### [facility] [address] [place] [address] Dr. Esthela Stevens Hematocrit (Bld) [Volume fraction] 38.4 % Normal 36.0-48.0 [facility] Comment on above: Performed By: #### L IVER, LDH, BMP #### [facility] [address] [place] [address] Dr. Esthela Stevens Hemoglobin (Bld) [Mass/Vol] 12.4 g/dL Normal 12.0-16.0 [facility] Comment on above: Performed By: #### L IVER, LDH, BMP #### [facility] [address] [place] [address] Dr. Esthela Stevens IG # 0.02 10e3/ul Normal 0.00-0.03 [facility] Comment on above: Performed By: #### L IVER, LDH, BMP #### [facility] [address] [place] [address] Dr. Esthela Stevens IG % 0.3 % Normal 0.0-0.5 [facility] Comment on above: Performed By: #### L IVER, LDH, BMP #### [facility] [address] [place] [address] Dr. Esthela Stevens LYMPH # 2.2 103/ul Normal 1.2-3.8 [facility] Comment on above: Performed By: #### L IVER, LDH, BMP #### [facility] [address] [place] [address] Dr. Esthela Stevens Lymphocytes/100 WBC (Bld) 32.8 % Normal 20.5-60.0 [facility] Comment on above: Performed By: #### L IVER, LDH, BMP #### [facility] [address] [place] [address] Dr. Esthela Stevens MANUAL DIFF REQ NO Normal [facility] Comment on above: Performed By: #### L IVER, LDH, BMP #### [facility] [address] [place] [address] Dr. Esthela Stevens MCH (RBC) [Entitic mass] 27.1 pg Normal 26.7-34.0 [facility] Comment on above: Performed By: #### L IVER, LDH, BMP #### [facility] [address] [place] [address] Dr. Esthela Stevens MCHC (RBC) [Mass/Vol] 32.3 g/dL Normal 29.9-35.2 [facility] Comment on above: Performed By: #### L IVER, LDH, BMP #### [facility] [address] [place] [address] Dr. Esthela Stevens MCV (RBC) [Entitic vol] 83.8 fL Normal 81.0-99.0 [facility] Comment on above: Performed By: #### L IVER, LDH, BMP #### [facility] [address] [place] [address] Dr. Esthela Stevens MONO # 0.5 103/ul Normal 0.3-0.8 [facility] Comment on above: Performed By: #### L IVER, LDH, BMP #### [facility] [address] [place] [address] Dr. Esthela Stevens Monocytes/100 WBC (Bld) 8.0 % Normal 1.7-12.0 [facility] Comment on above: Performed By: #### L IVER, LDH, BMP #### [facility] [address] [place] [address] Dr. Esthela Stevens NEUT # 3.7 103/ul Normal 1.4-6.5 [facility] Comment on above: Performed By: #### L IVER, LDH, BMP #### [facility] [address] [place] [address] Dr. Esthela Stevens Neutrophils/100 WBC (Bld) 56.4 % Normal 43.0-75.0 [facility] Comment on above: Performed By: #### L IVER, LDH, BMP #### [facility] [address] [place] [address] Dr. Esthela Stevens Platelet mean volume (Bld) [Entitic vol] 9.3 fL Critically low 9.5-13.5 [facility] Comment on above: Performed By: #### L IVER, LDH, BMP #### [facility] [address] [place] [address] Dr. Esthela Stevens PLT 334 103/ul Normal 150-450 [facility] Comment on above: Performed By: #### L IVER, LDH, BMP #### [facility] [address] [place] [address] Dr. Esthela Stevens RBC 4.58 106/ul Normal 4.20-5.40 [facility] Comment on above: Performed By: #### L IVER, LDH, BMP #### [facility] [address] [place] [address] Dr. Esthela Stevens WBC 6.6 103/ul Normal 4.0-11.0 [facility] Comment on above: Performed By: #### L IVER, LDH, BMP #### [facility] [address] [place] [address] Dr. Esthela Stevens LDHon 09-30-2022 LDH 122 U/L Normal 81-234 [facility] Comment on above: Performed By: #### L IVER, LDH, BMP #### [facility] [address] [place] [address] Dr. Esthela Stevens LIVER PROFILEon 09-30-2022 Albumin [Mass/Vol] 4.1 g/dL Normal 3.4-5.0 [facility] Comment on above: Performed By: #### L IVER, LDH, BMP #### [facility] [address] [place] [address] Dr. Esthela Stevens Albumin/Globulin [Mass ratio] 1.2 {ratio} Normal [facility] Comment on above: Performed By: #### L IVER, LDH, BMP #### [facility] [address] [place] [address] Dr. Esthela Stevens ALP [Catalytic activity/Vol] 75 U/L Normal 46-116 [facility] Comment on above: Performed By: #### L IVER, LDH, BMP #### [facility] [address] [place] [address] Dr. Esthela Stevens ALT [Catalytic activity/Vol] 41 U/L Normal 14-59 [facility] Comment on above: Performed By: #### L IVER, LDH, BMP #### [facility] [address] [place] [address] Dr. Esthela Stevens AST [Catalytic activity/Vol] 30 U/L Normal 15-37 [facility] Comment on above: Performed By: #### L IVER, LDH, BMP #### [facility] [address] [place] [address] Dr. Esthela Stevens BILI, CONJUGATED 0.1 mg/dL Normal 0.0-0.2 [facility] Comment on above: Performed By: #### L IVER, LDH, BMP #### [facility] [address] [place] [address] Dr. Esthela Stevens Bilirubin [Mass/Vol] 0.5 mg/dL Normal 0.2-1.0 [facility] Comment on above: Performed By: #### L IVER, LDH, BMP #### [facility] [address] [place] [address] Dr. Esthela Stevens Globulin (S) [Mass/Vol] 3.3 g/dL Normal [facility] Comment on above: Performed By: #### L IVER, LDH, BMP #### [facility] [address] [place] [address] Dr. Esthela Stevens Protein [Mass/Vol] 7.4 g/dL Normal 6.4-8.2 [facility] Comment on above: Performed By: #### L IVER, LDH, BMP #### [facility] [address] [place] [address] Dr. Esthela Stevens PROF CHEM 8 (BAS METB)on Anion gap [Moles/Vol] 9.2 mmol/L Normal [facility] Comment on above: Performed By: #### L IVER, LDH, BMP #### [facility] [address] [place] [address] Dr. Esthela Stevens Calcium [Mass/Vol] 9.0 mg/dL Normal 8.5-10.1 [facility] Comment on above: Performed By: #### L IVER, LDH, BMP #### [facility] [address] [place] [address] Dr. Esthela Stevens Chloride [Moles/Vol] 102 mmol/L Normal 98-107 [facility] Comment on above: Performed By: #### L IVER, LDH, BMP #### [facility] [address] [address] [address] Esthela Stevens CO2 [Moles/Vol] 27.8 mmol/L Normal 21.0-32.0 [facility] Comment on above: Performed By: #### L IVER, LDH, BMP #### [facility] [address] [address] [address] Esthela Stevens Creatinine [Mass/Vol] 0.63 mg/dL Normal 0.55-1.02 [facility] Comment on above: Performed By: #### L IVER, LDH, BMP #### [facility] [address] [place] [address] Dr. Esthela Stevens EGFR-AF NICARAGUAN >60 Normal >=60 [facility] Comment on above: Performed By: #### L IVER, LDH, BMP #### [facility] [address] [place] [address] Dr. Esthela Stevens EGFR-NON AF NICARAGUAN >60 Normal >=60 [facility] Comment on above: Performed By: #### L IVER, LDH, BMP #### [facility] [address] [place] [address] Dr. Esthela Stevens Glucose [Mass/Vol] 106 mg/dL Normal 74-106 [facility] Comment on above: Performed By: #### L IVER, LDH, BMP #### [facility] [address] [address] [address] Esthela Stevens Potassium [Moles/Vol] 4.0 mmol/L Normal 3.5-5.1 [facility] Comment on above: Performed By: #### L IVER, LDH, BMP #### [facility] [address] [place] [address] Dr. Esthela Stevens Sodium [Moles/Vol] 135 mmol/L Critically low 136-145 [facility] Comment on above: Performed By: #### L IVER, LDH, BMP #### [facility] [address] [place] [address] Dr. Esthela Stevens Urea nitrogen [Mass/Vol] 9.0 mg/dL Normal 7.0-18.0 [facility] Comment on above: Performed By: #### L IVER, LDH, BMP #### [facility] [address] [place], [place] [address] Dr. Esthela Stevens Urea nitrogen/Creatinine [Mass ratio] 14.3 mg/mg Normal [facility] Comment on above: Performed By: #### L IVER, LDH, BMP #### [facility] [address] [place], [place] [address] Dr. Esthela Stevens MG MAMM DIAGNOSTIC 3D EFREN CA Don 09-23-2022 MG MAMM DIAGNOSTIC 3D EFREN CAD Patient: ZAINAB SWIFT Exam Date: 09/23/2022 : 1995 Gender:F Ordering : [facility] Admission #: [id number] Family : Order #: [id number] CLICK HERE TO VIEW EXAM RADIOLOGY REPORT [...] cervical cancer at age 42. LOCATION: [facility] BREAST COMPOSITION: Extremely dense, which [...] M.D. on 09/23/2022 at 11:31 Normal [facility] US BREAST EFREN LIMITEDon 03-0 US BREAST EFREN LIMITED Patient: ZAINAB SWIFT Exam Date: 09/23/2022 : 1995 Gender:F Ordering : ERIN [facility] Admission #: [id number] Family : Order #: [id number] CLICK HERE TO VIEW EXAM RADIOLOGY REPORT [...] cervical cancer at age 42. LOCATION: [facility] BREAST COMPOSITION: Extremely dense, which [...] M.D. on 09/23/2022 at 11:31 Normal [facility] Covid-19 PCR (CVDTBH)on 08-20 SARS-CoV-2 (COVID-19) RNA JORGE LUIS+probe Ql (Unsp spec) Not detected Normal NOT DETECTED [facility] Comment on above: Result Comment: [...] for this test is supported by the [place] of Health and Human Service's declaration that [...] used). Performed By: #### P REG #### [facility] [address] [place] [address] Dr. Esthela Stevens INFLUENZA A AND B AGon 09-15 [facility] SEE BELOW Normal [facility] Comment on above: Result Comment: Nega tive for Flu A protein angiten. Infection due to Flu A cannot be ruled out. Flu A angiten in the sample may be below the detection limit of the test. Performed By: #### L IVER, LDH, BMP #### [facility] [address] [place] [address] Dr. Esthela Stevens [facility] BEL[facility] Normal [facility] Comment on above: Result Comment: Nega tive for Flu B protein antigen. Infection due to Flu B cannot be ruled out. Flu B antigen in the sample may be below the detection limit of the test. Performed By: #### L IVER, LDH, BMP #### [facility] [address] [place] [address] Dr. Esthela Stevens INFLUENZA A AG Negative Normal NEGATIVE SEE COMMENT [facility] Comment on above: Performed By: #### L IVER, LDH, BMP #### [facility] [address] [place] [address] Dr. Esthela Stevens INFLUENZA B AG Negative Normal NEGATIVE SEE COMMENT [facility] Comment on above: Performed By: #### L IVER, LDH, BMP #### [facility] [address] [address] [address] Esthela Stevens HUNTER by IFAon 09-04-2022 Antinuclear Antibodies, IFA Positive Abnormal [facility] Comment on above: Result Comment: Nega tive <1:80 Borderline 1:80 Positive >1:80 Performed By: #### P REG #### [facility] [address] [address] [address] Esthela Stevens Centriole Pattern Normal [facility] Comment on above: Performed By: #### P REG #### [facility] [address] [address] [address] Esthela Stevens Centromere Pattern Normal [facility] Comment on above: Performed By: #### P REG #### [facility] [address] [address] [address] Esthela Stevens Homogeneous Pattern 1:160 Critically high [facility] Comment on above: Result Comment: ICAP nomenclature: AC-1 Performed By: #### P REG #### [facility] [address] [address] [address] Esthela Stevens Midbody Pattern Normal [facility] Comment on above: Performed By: #### P REG #### [facility] [address] [address] [address] Esthela Stevens Note: Comment Normal [facility] Comment on above: Result Comment: [...] titers Nucleosomes, Histones Drug-induced SLE Speckled Sm, NEEDLE MAKER, SCL-70, SLE,MCTD,PSS (diffuse form), SS-A/SS-B Sjogrens Nucleolar SCL-70, PM-1/SCL High titers Scleroderma, PM/DM Centromere Centromere PSS (limited form) w/Crest syndrome variable Nuclear Dot [id number] Primary Biliary Cirrhosis Nuclear GP210, Primary Biliary Cirrhosis Membrane italia A,B,C Performed By: #### P REG #### [address] [address] [address] Esthela Stevens Nuclear Dot Pattern Normal [facility] Comment on above: Performed By: #### P REG #### [facility] [address] [address] [address] Esthela Stevens Nuclear Membrane Pattern Normal [facility] Comment on above: Performed By: #### P REG #### [facility] [address] [address] [address] Esthela Stevens Nucleolar Pattern Normal [facility] Comment on above: Performed By: #### P REG #### [facility] [address] [address] [address] Esthela Stevens PCNA Pattern Normal [facility] Comment on above: Performed By: #### P REG #### [facility] [address] [place] [address] Dr. Esthela Stevens Speckled Pattern Normal [facility] Comment on above: Performed By: #### P REG #### [facility] [address] [place] [address] Dr. Esthela Stevens Spindle Apparatus Pattern Normal [facility] Comment on above: Performed By: #### P REG #### [facility] [address] [place] [address] Dr. Esthela Stevens ANTISTREPTOLYSIN O AB (ASO)o n 09-01-2022 Antistreptolysin O Ab 58.8 IU/mL Normal 0.0-200.0 [facility] Comment on above: Performed By: #### L IVER, LDH, BMP #### [facility] [address] [place] [address] Dr. Esthela Stevens INSULINon 09-01-2022 Insulin 12.2 uIU/mL Normal 2.6-24.9 [facility] Comment on above: Performed By: #### I NSULIN #### [facility] [address] [place] [address] Dr. Esthela Stevens RHEUMATOID FACTORon 09-01-19 23 RA Latex Turbid. <10.0 Normal <14.0 [facility] Comment on above: Performed By: #### L IVER, LDH, BMP #### [facility] [address] [place] [address] Dr. Esthela Stevens CBC AUTO DIFFon 08-31-2022 BASO # 0.0 103/ul Normal 0.0-0.1 [facility] Comment on above: Performed By: #### P REG #### [facility] [address] [place] [address] Dr. Esthela Stevens Basophils/100 WBC (Bld) 0.6 % Normal 0.2-2.0 [facility] Comment on above: Performed By: #### P REG #### [facility] [address] [place] [address] Dr. Esthela Stevens EO # 0.1 103/ul Normal 0.0-0.7 [facility] Comment on above: Performed By: #### P REG #### [facility] [address] [place] [address] Dr. Esthela Stevens Eosinophils/100 WBC (Bld) 1.5 % Normal 0.9-7.0 [facility] Comment on above: Performed By: #### P REG #### [facility] [address] [place] [address] Dr. Esthela Stevens Erythrocyte distribution width (RBC) [Ratio] 12.7 % Normal 11.0-15.0 [facility] Comment on above: Performed By: #### P REG #### [facility] [address] [place] [address] Dr. Esthela Stevens Hematocrit (Bld) [Volume fraction] 38.4 % Normal 36.0-48.0 [facility] Comment on above: Performed By: #### P REG #### [facility] [address] [place] [address] Dr. Esthela Stevens Hemoglobin (Bld) [Mass/Vol] 12.7 g/dL Normal 12.0-16.0 [facility] Comment on above: Performed By: #### P REG #### [facility] [address] [place] [address] Dr. Esthela Stevens IG # 0.02 10e3/ul Normal 0.00-0.03 [facility] Comment on above: Performed By: #### P REG #### [facility] [address] [place] [address] Dr. Esthela Stevens IG % 0.3 % Normal 0.0-0.5 [facility] Comment on above: Performed By: #### P REG #### [facility] [address] [place] [address] Dr. Esthela Stevens LYMPH # 2.0 103/ul Normal 1.2-3.8 [facility] Comment on above: Performed By: #### P REG #### [facility] [address] [place] [address] Dr. Esthela Stevens Lymphocytes/100 WBC (Bld) 31.2 % Normal 20.5-60.0 [facility] Comment on above: Performed By: #### P REG #### [facility] [address] [place] [address] Dr. Esthela Stevens MANUAL DIFF REQ NO Normal [facility] Comment on above: Performed By: #### P REG #### [facility] [address] [place] [address] Dr. Esthela Stevens MCH (RBC) [Entitic mass] 27.1 pg Normal 26.7-34.0 [facility] Comment on above: Performed By: #### P REG #### [facility] [address] [place] [address] Dr. Esthela Stevens MCHC (RBC) [Mass/Vol] 33.1 g/dL Normal 29.9-35.2 [facility] Comment on above: Performed By: #### P REG #### [facility] [address] [place] [address] Dr. Esthela Stevens MCV (RBC) [Entitic vol] 82.1 fL Normal 81.0-99.0 [facility] Comment on above: Performed By: #### P REG #### [facility] [address] [place] [address] Dr. Esthela Stevens MONO # 0.4 103/ul Normal 0.3-0.8 [facility] Comment on above: Performed By: #### P REG #### [facility] [address] [place] [address] Dr. Esthela Stevens Monocytes/100 WBC (Bld) 6.4 % Normal 1.7-12.0 [facility] Comment on above: Performed By: #### P REG #### [facility] [address] [place] [address] Dr. Esthela Stevens NEUT # 3.9 103/ul Normal 1.4-6.5 [facility] Comment on above: Performed By: #### P REG #### [facility] [address] [place] [address] Dr. Esthela Stevens Neutrophils/100 WBC (Bld) 60.0 % Normal 43.0-75.0 [facility] Comment on above: Performed By: #### P REG #### [facility] [address] [place] [address] Dr. Esthela Stevens Platelet mean volume (Bld) [Entitic vol] 9.2 fL Critically low 9.5-13.5 [facility] Comment on above: Performed By: #### P REG #### [facility] [address] [place] [address] Dr. Esthela Stevens PLT 390 103/ul Normal 150-450 [facility] [facility] Comment on above: Performed By: #### P REG #### [facility] [address] [place] [address] Dr. Esthela Stevens RBC 4.68 106/ul Normal 4.20-5.40 [facility] Comment on above: Performed By: #### P REG #### [facility] [address] [place] [address] Dr. Esthela Stevens WBC 6.5 103/ul Normal 4.0-11.0 [facility] Comment on above: Performed By: #### P REG #### [facility] [address] [place] [address] Dr. Esthela Stevens CRPon 08-31-2022 CRP [Mass/Vol] mg/L Normal <=1.0 [facility] Comment on above: Performed By: #### L IVER, LDH, BMP #### [facility] [address] [place] [address] Dr. Esthela Stevens FREE THYROXINE INDEX T7on FTI 2.94 Normal 1.30-4.50 [facility] Comment on above: Performed By: #### L IVER, LDH, BMP #### [facility] [address] [address] [address] Esthela Stevens T3U 33.0 % Normal 30.0-39.0 [facility] Comment on above: Performed By: #### L IVER, LDH, BMP #### [facility] [address] [address] [address] Esthela Stevens T4 [Mass/Vol] 8.90 ug/dL Normal 4.80-13.90 [facility] Comment on above: Performed By: #### L IVER, LDH, BMP #### [facility] [address] [address] [address] Esthela Stevens GLYCOHEMOGLOBIN A1Con 2022 ADA RECOMMENDATION SEE BELOW Normal [facility] Comment on above: Result Comment: ADA RECOMMENDED LIMIT 4.0 - 6.0 ADA THERAPEUTIC TARGET < 7.0 ACTION SUGGESTED > 7.0 Performed By: #### L IVER, LDH, BMP #### [facility] [address] [address] [address] Esthela Stevens Glucose [Mass/Vol] 111 mg/dL Normal [facility] Comment on above: Performed By: #### L IVER, LDH, BMP #### [facility] [address] [address] [address] Esthela Stevens HbA1c (Bld) [Mass fraction] 5.5 % Normal 4.5-6.2 [facility] Comment on above: Performed By: #### L IVER, LDH, BMP #### [facility] [address] [address] [address] Esthela Stevens IRONon 08-31-2022 Iron [Mass/Vol] 34.0 ug/dL Critically low 50.0-170.0 [facility] Comment on above: Performed By: #### L IVER, LDH, BMP #### [facility] [address] [address] [address] Esthela Stevens LIPID PROFILEon 08-31-2022 CHOL-HDL RATIO NORM SEE BELOW Normal [facility] Comment on above: Result Comment: 3.3 - 4.4 LOW RISK 4.4 - 7.1 AVERAGE RISK 7.1 - 11.0 MODERATE RISK >11.0 HIGH RISK Performed By: #### L IVER, LDH, BMP #### [facility] [address] [address] [address] Esthela Stevens Cholesterol [Mass/Vol] 168 mg/dL Normal <=200 [facility] Comment on above: Performed By: #### L IVER, LDH, BMP #### [facility] [address] [address] [address] Esthela Stevens Cholesterol in HDL [Mass/Vol] 51 mg/dL Normal 40-60 [facility] Comment on above: Performed By: #### L IVER, LDH, BMP #### [facility] [address] [place] [address] Dr. Esthela Stevens Cholesterol in LDL [Mass/Vol] 91.8 mg/dL Normal [facility] Comment on above: Performed By: #### L IVER, LDH, BMP #### [facility] [address] [address] [address] Esthela Stevens Cholesterol.total/Ch olesterol in HDL [Mass ratio] 3.3 {ratio} Normal [facility] Comment on above: Performed By: #### L IVER, LDH, BMP #### [facility] [address] [place] [address] Dr. Esthela Stevens HDL NORMAL > or = 60 mg/dl - LOW CARDIOVASCULAR RISK <40 mg/dl - HIGH CARDIOVASCULAR RISK Normal [facility] Comment on above: Performed By: #### L IVER, LDH, BMP #### [facility] [address] [place] [address] Dr. Esthela Stevens LDL CALC NORMAL SEE BELOW Normal [facility] Comment on above: Result Comment: <100 mg/dl OPTIMAL 100 - 129 mg/dl NEAR OR ABOVE OPTIMAL 130 - 159 mg/dl BORDERLINE HIGH 160 - 189 mg/dl HIGH >190 mg/dl VERY HIGH Performed By: #### L IVER, LDH, BMP #### [facility] [address] [address] [address] Esthela Stevens Triglyceride [Mass/Vol] 126 mg/dL Normal <=150 [facility] Comment on above: Performed By: #### L IVER, LDH, BMP #### [facility] [address] [address] [address] Esthela Stevens VLDL CALC 25.2 mg/dL Normal [facility] Comment on above: Performed By: #### L IVER, LDH, BMP #### [facility] [address] [address] [address] Esthela Stevens PROF 14(COMP METB)on 023 Albumin [Mass/Vol] 4.2 g/dL Normal 3.4-5.0 [facility] Comment on above: Performed By: #### L IVER, LDH, BMP #### [facility] [address] [address] [address] Esthela Stevens Albumin/Globulin [Mass ratio] 1.1 {ratio} Normal [facility] Comment on above: Performed By: #### L IVER, LDH, BMP #### [facility] [address] [address] [address] Esthela Stevens ALP [Catalytic activity/Vol] 74 U/L Normal 46-116 [facility] Comment on above: Performed By: #### L IVER, LDH, BMP #### [facility] [address] [address] [address] Esthela Stevens ALT [Catalytic activity/Vol] 57 U/L Normal 14-59 [facility] Comment on above: Performed By: #### L IVER, LDH, BMP #### [facility] [address] [address] [address] Esthela Stevens Anion gap [Moles/Vol] 15.0 mmol/L Normal [facility] Comment on above: Performed By: #### L IVER, LDH, BMP #### [facility] [address] [address] [address] Esthela Stevens AST [Catalytic activity/Vol] 25 U/L Normal 15-37 [facility] Comment on above: Performed By: #### L IVER, LDH, BMP #### [facility] [address] [address] [address] Esthela Stevens Bilirubin [Mass/Vol] 0.4 mg/dL Normal 0.2-1.0 [facility] Comment on above: Performed By: #### L IVER, LDH, BMP #### [facility] [address] [place] [address] Dr. Esthela Stevens Calcium [Mass/Vol] 9.4 mg/dL Normal 8.5-10.1 [facility] Comment on above: Performed By: #### L IVER, LDH, BMP #### [facility] [address] [place] [address] Dr. Esthela Stevens Chloride [Moles/Vol] 102 mmol/L Normal 98-107 [facility] Comment on above: Performed By: #### L IVER, LDH, BMP #### [facility] [address] [place] [address] Dr. Esthela Stevens CO2 [Moles/Vol] 27.0 mmol/L Normal 21.0-32.0 [facility] Comment on above: Performed By: #### L IVER, LDH, BMP #### [facility] [address] [place] [address] Dr. Esthela Stevens Creatinine [Mass/Vol] 0.61 mg/dL Normal 0.55-1.02 [facility] Comment on above: Performed By: #### L IVER, LDH, BMP #### [facility] [address] [place] [address] Dr. Esthela Stevens EGFR-AF NICARAGUAN >60 Normal >=60 [facility] Comment on above: Performed By: #### L IVER, LDH, BMP #### [facility] [address] [place] [address] Dr. Esthela Stevens EGFR-NON AF NICARAGUAN >60 Normal >=60 [facility] Comment on above: Performed By: #### L IVER, LDH, BMP #### [facility] [address] [place] [address] Dr. Esthela Stevens Globulin (S) [Mass/Vol] 3.7 g/dL Normal [facility] Comment on above: Performed By: #### L IVER, LDH, BMP #### [facility] [address] [address] [address] Esthela Stevens Glucose [Mass/Vol] 88 mg/dL Normal 74-106 [facility] Comment on above: Performed By: #### L IVER, LDH, BMP #### [facility] [address] [address] [address] Esthela Stevens Potassium [Moles/Vol] 4.0 mmol/L Normal 3.5-5.1 [facility] Comment on above: Performed By: #### L IVER, LDH, BMP #### [facility] [address] [place] [address] Dr. Esthela Stevens Protein [Mass/Vol] 7.9 g/dL Normal 6.4-8.2 [facility] Comment on above: Performed By: #### L IVER, LDH, BMP #### [facility] [address] [place] [address] Dr. Esthela Stevens Sodium [Moles/Vol] 140 mmol/L Normal 136-145 [facility] Comment on above: Performed By: #### L IVER, LDH, BMP #### [facility] [address] [place] [address] Dr. Esthela Stevens Urea nitrogen [Mass/Vol] 4.0 mg/dL Critically low 7.0-18.0 [facility] Comment on above: Performed By: #### L IVER, LDH, BMP #### [facility] [address] [place] [address] Dr. Esthela Stevens Urea nitrogen/Creatinine [Mass ratio] 6.6 mg/mg Normal [facility] Comment on above: Performed By: #### L IVER, LDH, BMP #### [facility] [address] [place] [address] Dr. Esthela Stevens TSHon 08-31-2022 TSH 1.348 uIU/mL Normal 0.358-3.740 [facility] Comment on above: Performed By: #### L IVER, LDH, BMP #### [facility] [address] [place] [address] Dr. Esthela Stevens URIC ACID SERUMon 08-31-2022 Urate [Mass/Vol] 4.4 mg/dL Normal 2.6-6.0 [facility] Comment on above: Performed By: #### L IVER, LDH, BMP #### [facility] [address] [place] [address] Dr. Esthela Stevens VITAMIN D 25 OHon 08-31-2022 VIT D 25-OH 18.0 ng/mL Normal [facility] Comment on above: Performed By: #### L IVER, LDH, BMP #### [facility] [address] [place] [address] Dr. Esthela Stevens VIT D RANGES SEE BELOW Normal [facility] Comment on above: Result Comment: <20 ng/mL Vit D deficient 20 - <30 ng/mL Vit D insufficient 30 - 100 ng/mL Vit D sufficient >100 ng/mL Potential Toxicity Performed By: #### L IVER, LDH, BMP #### [facility] [address] [place] [address] Dr. Esthela Stevens LIVER PROFILEon 08-24-2022 Albumin [Mass/Vol] 3.9 g/dL Normal 3.4-5.0 [facility] Comment on above: Performed By: #### L IVER, LDH, BMP #### [facility] [address] [place] [address] Dr. Esthela Stevens Albumin/Globulin [Mass ratio] 1.0 {ratio} Normal [facility] Comment on above: Performed By: #### L IVER, LDH, BMP #### [facility] [address] [place] [address] Dr. Esthela Stevens ALP [Catalytic activity/Vol] 70 U/L Normal 46-116 [facility] Comment on above: Performed By: #### L IVER, LDH, BMP #### [facility] [address] [place] [address] Dr. Esthela Stevens ALT [Catalytic activity/Vol] 44 U/L Normal 14-59 [facility] Comment on above: Performed By: #### L IVER, LDH, BMP #### [facility] [address] [place] [address] Dr. Estheal Stevens AST [Catalytic activity/Vol] 22 U/L Normal 15-37 [facility] Comment on above: Performed By: #### L IVER, LDH, BMP #### [facility] [address] [place] [address] Dr. Esthela Stevens BILI, CONJUGATED 0.1 mg/dL Normal 0.0-0.2 [facility] Comment on above: Performed By: #### L IVER, LDH, BMP #### [facility] [address] [place] [address] Dr. Esthela Stevens Bilirubin [Mass/Vol] 0.3 mg/dL Normal 0.2-1.0 [facility] Comment on above: Performed By: #### L IVER, LDH, BMP #### [facility] [address] [place] [address] Dr. Esthela Stevens Globulin (S) [Mass/Vol] 3.9 g/dL Normal [facility] Comment on above: Performed By: #### L IVER, LDH, BMP #### [facility] [address] [place] [address] Dr. Esthela Stevens Protein [Mass/Vol] 7.8 g/dL Normal 6.4-8.2 [facility] Comment on above: Performed By: #### L IVER, LDH, BMP #### [facility] [address] [place] [address] [facility] CT ABDOMEN/PELVIS WITH AND WITHOUT [...] or increased in size compared to prior. Deep Tissue Massage Therapist 0.8 cm x 0.5 cm soft tissue [...] error, please notify the sender immediately at [phone] and permanently delete the original report and destroy any copies or printouts. Normal [facility] CREAT/GFRon 08-19-2022 Creatinine [Mass/Vol] 0.85 mg/dL 0.50 - 1.20 mg/dL [facility] GFR/1.73 sq M.predicted CKD-EPI (S/P/Bld) [Vol rate/Area] - PINF [facility] Comment on above: Reported eGFR is bas ed on the CKD-EPI 2020 equation using creatinine, age, and sex. Interpretation and review of laboratory results Normal [facility] Test performed at address of the patient encounter. [facility] NUC PET NEUROENDOCRINEon NUC PET NEUROENDOCRINE [...] evidence of somatostatin receptor avid malignancy. 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 [facility] Radiology Study observation (narrative) [facility] PT Skull base to mid-thighOr dered By: Hawa Pichardo on 08-19-2022 [facility] Work Phone: CBC AUTO DIFFon 08-12-2022 BASO # 0.1 103/ul Normal 0.0-0.1 [facility] Comment on above: Performed By: #### L IVER, LDH, BMP #### [facility] [address] [place] [address] Dr. Esthela Stevens Basophils/100 WBC (Bld) 1.0 % Normal 0.2-2.0 [facility] Comment on above: Performed By: #### L IVER, LDH, BMP #### [facility] [address] [address] [address] Esthela Stevens EO # 0.1 103/ul Normal 0.0-0.7 [facility] Comment on above: Performed By: #### L IVER, LDH, BMP #### [facility] [address] [address] [address] Esthela Stevens Eosinophils/100 WBC (Bld) 1.6 % Normal 0.9-7.0 [facility] Comment on above: Performed By: #### L IVER, LDH, BMP #### [facility] [address] [address] [address] Esthela Stevens Erythrocyte distribution width (RBC) [Ratio] 12.5 % Normal 11.0-15.0 [facility] Comment on above: Performed By: #### L IVER, LDH, BMP #### [facility] [address] [address] [address] Esthela Stevens Hematocrit (Bld) [Volume fraction] 40.1 % Normal 36.0-48.0 [facility] Comment on above: Performed By: #### L IVER, LDH, BMP #### [facility] [address] [place] [address] Dr. Esthela Stevens Hemoglobin (Bld) [Mass/Vol] 12.3 g/dL Normal 12.0-16.0 [facility] Comment on above: Performed By: #### L IVER, LDH, BMP #### [facility] [address] [place] [address] Dr. Esthela Stevens IG # 0.01 10e3/ul Normal 0.00-0.03 [facility] Comment on above: Performed By: #### L IVER, LDH, BMP #### [facility] [address] [place] [address] Dr. Esthela Stevens IG % 0.2 % Normal 0.0-0.5 [facility] Comment on above: Performed By: #### L IVER, LDH, BMP #### [facility] [address] [place] [address] Dr. Esthela Stevens LYMPH # 1.8 103/ul Normal 1.2-3.8 [facility] Comment on above: Performed By: #### L IVER, LDH, BMP #### [facility] [address] [place] [address] Dr. Esthela Stevens Lymphocytes/100 WBC (Bld) 28.0 % Normal 20.5-60.0 [facility] Comment on above: Performed By: #### L IVER, LDH, BMP #### [facility] [address] [place] [address] Dr. Esthela Stevens MANUAL DIFF REQ NO Normal [facility] Comment on above: Performed By: #### L IVER, LDH, BMP #### [facility] [address] [place] [address] Dr. Esthela Stevens MCH (RBC) [Entitic mass] 26.8 pg Normal 26.7-34.0 [facility] Comment on above: Performed By: #### L IVER, LDH, BMP #### [facility] [address] [place] [address] Dr. Esthela Stevens MCHC (RBC) [Mass/Vol] 30.7 g/dL Normal 29.9-35.2 [facility] Comment on above: Performed By: #### L IVER, LDH, BMP #### [facility] [address] [place] [address] Dr. Esthela Stevens MCV (RBC) [Entitic vol] 87.4 fL Normal 81.0-99.0 [facility] Comment on above: Performed By: #### L IVER, LDH, BMP #### [facility] [address] [place] [address] Dr. Esthela Stevens MONO # 0.6 103/ul Normal 0.3-0.8 [facility] Comment on above: Performed By: #### L IVER, LDH, BMP #### [facility] [address] [place] [address] Dr. Esthela Stevens Monocytes/100 WBC (Bld) 9.4 % Normal 1.7-12.0 [facility] Comment on above: Performed By: #### L IVER, LDH, BMP #### [facility] [address] [place] [address] Dr. Esthela Stevens NEUT # 3.8 103/ul Normal 1.4-6.5 [facility] Comment on above: Performed By: #### L IVER, LDH, BMP #### [facility] [address] [place] [address] Dr. Esthela Stevens Neutrophils/100 WBC (Bld) 59.8 % Normal 43.0-75.0 [facility] Comment on above: Performed By: #### L IVER, LDH, BMP #### [facility] [address] [place] [address] Dr. Esthela Stevens Platelet mean volume (Bld) [Entitic vol] 9.6 fL Normal 9.5-13.5 [facility] Comment on above: Performed By: #### L IVER, LDH, BMP #### [facility] [address] [place] [address] Dr. Esthela Stevens PLT 341 103/ul Normal 150-450 [facility] Comment on above: Performed By: #### L IVER, LDH, BMP #### [facility] [address] [place], [place] [address] Dr. Esthela Stevens RBC 4.59 106/ul Normal 4.20-5.40 [facility] Comment on above: Performed By: #### L IVER, LDH, BMP #### [facility] [address] [place], [place] [address] Dr. Esthela Stevens WBC 6.3 103/ul Normal 4.0-11.0 [facility] Comment on above: Performed By: #### L IVER, LDH, BMP #### [facility] [address] [place], [place] [address] ABD/PELV W CONon [...] TIMMY SHAY Date: 2022-08-12 17:04 Normal [facility] CULTURE URINEon 08-12-2022 CULTURE URINE Culture Observations: MODERATE GROWTH OF MIXED GENITAL SUNITA. NO POTENTIAL PATHOGENS SEEN. Normal [facility] Comment on above: Performed By: #### L IVER, LDH, BMP #### [facility] [address] [place] [address] Dr. Esthela Stevens ER URINE PROFILEon 3 Bilirubin Ql (U) Negative Normal NEGATIVE [facility] Comment on above: Performed By: #### P REG #### [facility] [address] [place] [address] Dr. Esthela Stevens Clarity (U) CLEAR Normal CLEAR [facility] Comment on above: Performed By: #### P REG #### [facility] [address] [place] [address] Dr. Esthela Stevens Color (U) LT. YELLOW Normal YELLOW [facility] Comment on above: Performed By: #### P REG #### [facility] [address] [place] [address] Dr. Esthela Stevens ERUAHD A micrscopic examination will be performed if indicated. Normal [facility] Comment on above: Performed By: #### P REG #### [facility] [address] [place] [address] Dr. Esthela Stevens Glucose Ql (U) Negative Normal NEGATIVE [facility] Comment on above: Performed By: #### P REG #### [facility] [address] [place] [address] Dr. Esthela Stevens Hemoglobin Ql (U) Negative Normal NEGATIVE [facility] Comment on above: Performed By: #### P REG #### [facility] [address] [place] [address] Dr. Esthela Stevens Ketones Ql (U) Negative Normal NEGATIVE [facility] Comment on above: Performed By: #### P REG #### [facility] [address] [place] [address] Dr. Esthela Stevens LEUKOCYTES SMALL Abnormal NEGATIVE [facility] Comment on above: Performed By: #### P REG #### [facility] [address] [place] [address] Dr. Esthela Stevens Nitrite Ql (U) Negative Normal NEGATIVE [facility] Comment on above: Performed By: #### P REG #### [facility] [address] [place] [address] Dr. Esthela Stevens pH (U) 7.0 [pH] Normal 5-9 [facility] Comment on above: Performed By: #### P REG #### [facility] [address] [place] [address] Dr. Esthela Stevens SPEC GRAVITY 1.020 Normal 1.005-<=1.025 [facility] Comment on above: Performed By: #### P REG #### [facility] [facility] [address] [place] [address] Dr. Esthela Stevens UA PROTEIN Negative Normal NEGATIVE/ TRACE [facility] Comment on above: Performed By: #### P REG #### [facility] [address] [place] [address] Dr. Esthela Stevens UR MICRO IND INDICATED Normal [facility] Comment on above: Performed By: #### P REG #### [facility] [address] [place] [address] Dr. Esthela Stevens Urobilinogen Qn (U) 0.2 {Emeka'U}/dL Normal 0.2 - 1. 0 [facility] Comment on above: Performed By: #### P REG #### [facility] [address] [place] [address] Dr. Esthela Stevens LIPASEon 01-25-2023 Lipase [Catalytic activity/Vol] 75.0 U/L Normal 73.0-393.0 [facility] Comment on above: Performed By: #### P REG #### [facility] [address] [place] [address] Dr. Esthela Stevens URon 08-12-2022 , QUAL Negative Normal NEGATIVE [facility] Comment on above: Performed By: #### P REG #### [facility] [address] [place] [address] Dr. Esthela Stevens PROF 14(COMP METB)on 023 Albumin [Mass/Vol] 4.0 g/dL Normal 3.4-5.0 [facility] Comment on above: Performed By: #### P REG #### [facility] [address] [place] [address] Dr. Esthela Stevens Albumin/Globulin [Mass ratio] 1.1 {ratio} Normal [facility] Comment on above: Performed By: #### P REG #### [facility] [address] [place] [address] Dr. Esthela Stevens ALP [Catalytic activity/Vol] 73 U/L Normal 46-116 [facility] Comment on above: Performed By: #### P REG #### [facility] [address] [place] [address] Dr. Esthela Stevens ALT [Catalytic activity/Vol] 82 U/L Critically high 14-59 [facility] Comment on above: Performed By: #### P REG #### [facility] [address] [place] [address] Dr. Esthela Stevens Anion gap [Moles/Vol] 12.0 mmol/L Normal [facility] Comment on above: Performed By: #### P REG #### [facility] [address] [place] [address] Dr. Esthela Stevens AST [Catalytic activity/Vol] 33 U/L Normal 15-37 [facility] Comment on above: Performed By: #### P REG #### [facility] [address] [place] [address] Dr. Esthela Stevens Bilirubin [Mass/Vol] 0.2 mg/dL Normal 0.2-1.0 [facility] Comment on above: Performed By: #### P REG #### [facility] [address] [address] [address] Esthela Stevens Calcium [Mass/Vol] 9.4 mg/dL Normal 8.5-10.1 [facility] Comment on above: Performed By: #### P REG #### [facility] [address] [address] [address] Esthela Stevens Chloride [Moles/Vol] 102 mmol/L Normal 98-107 [facility] Comment on above: Performed By: #### P REG #### [facility] [address] [address] [address] Esthela Stevens CO2 [Moles/Vol] 27.8 mmol/L Normal 21.0-32.0 [facility] Comment on above: Performed By: #### P REG #### [facility] [address] [address] [address] Esthela Stevens Creatinine [Mass/Vol] 0.69 mg/dL Normal 0.55-1.02 [facility] Comment on above: Performed By: #### P REG #### [facility] [address] [place] [address] Dr. Esthela Stevens EGFR-AF NICARAGUAN >60 Normal >=60 [facility] Comment on above: Performed By: #### P REG #### [facility] [address] [address] [address] Esthela Stevens EGFR-NON AF NICARAGUAN >60 Normal >=60 [facility] Comment on above: Performed By: #### P REG #### [facility] [address] [address] [address] Esthela Stevens Globulin (S) [Mass/Vol] 3.5 g/dL Normal [facility] Comment on above: Performed By: #### P REG #### [facility] [address] [place] [address] Dr. Esthela Stevens Glucose [Mass/Vol] 109 mg/dL Critically high 74-106 [facility] Comment on above: Performed By: #### P REG #### [facility] [address] [address] [address] Esthela Stevens Potassium [Moles/Vol] 3.8 mmol/L Normal 3.5-5.1 [facility] Comment on above: Performed By: #### P REG #### [facility] [address] [address] [address] Esthela Stevens Protein [Mass/Vol] 7.5 g/dL Normal 6.4-8.2 [facility] Comment on above: Performed By: #### P REG #### [facility] [address] [address] [address] Esthela Stevens Sodium [Moles/Vol] 138 mmol/L Normal 136-145 [facility] Comment on above: Performed By: #### P REG #### [facility] [address] [place] [address] Dr. Esthela Stevens Urea nitrogen [Mass/Vol] 6.0 mg/dL Critically low 7.0-18.0 [facility] Comment on above: Performed By: #### P REG #### [facility] [address] [place] [address] Dr. Esthela Stevens Urea nitrogen/Creatinine [Mass ratio] 8.7 mg/mg Normal [facility] Comment on above: Performed By: #### P REG #### [facility] [address] [place] [address] Dr. Esthela Stevens URINE MICROSCOPIC ONLYon BACTERIA SMALL Abnormal NONE SEEN [facility] Comment on above: Performed By: #### P REG #### [facility] [address] [place] [address] Dr. Esthela Stevens Bacteria identified Cx Nom (U) INDICATED Normal [facility] Comment on above: Performed By: #### P REG #### [facility] [address] [place] [address] Dr. Esthela Stevens CAST NONE SEEN Normal NONE SEEN [facility] Comment on above: Performed By: #### P REG #### [facility] [address] [place] [address] Dr. Esthela Stevens Crystals LM Nom (Urine sed) NONE SEEN Normal NONE SEEN [facility] Comment on above: Performed By: #### P REG #### [facility] [address] [place] [address] Dr. Esthela Stevens Epithelial cells LM Ql (Urine sed) MODERATE Abnormal NONE SEEN /RARE [facility] Comment on above: Performed By: #### P REG #### [facility] [address] [place] [address] Dr. Esthela Stevens MUCOUS NONE SEEN Normal NONE SEEN [facility] Comment on above: Performed By: #### P REG #### [facility] [address] [address] [address] Esthela Stevens RBC NONE SEEN Abnormal 0-2 [facility] Comment on above: Performed By: #### P REG #### [facility] [address] [place] [address] Dr. Esthela Stevens WBC 2-5 Abnormal NONE SEEN [facility] Comment on above: Performed By: #### P REG #### [facility] [address] [place] [address] Dr. Esthela Stevens PAP ACOG PANEL 2: 21 to 29on 08-11-2022 . . Normal [facility] Comment on above: Performed By: #### [id number] #### [facility] [address] [place] [address] Dr. Esthela Stevens Age Gdln ACOG Testing 21-29 Normal [facility] Comment on above: Performed By: #### [id number] #### [facility] [address] [place] [address] Dr. Esthela Stevens DIAGNOSIS: Comment Abnormal [facility] Comment on above: Result Comment: EPIT HELIAL CELL ABNORMALITY. ATYPICAL SQUAMOUS CELLS OF UNDETERMINED SIGNIFICANCE (ASC-US). Performed By: #### [id number] #### [facility] [address] [place] [address] Dr. Esthela Stevens Electronically signed by: Comment Normal [facility] Comment on above: Result Comment: Zoe Moncada MD, Pathologist Performed By: #### [id number] #### [facility] [address] [place] [address] Dr. Esthela Stevens HPV Aptima Negative Normal Negative [facility] Comment on above: Result Comment: This nucleic acid amplification test detects fourteen high-risk HPV types (16,18,31,33,35,39,45,51,52,56,58,59,66,68) without differentiation. Performed By: #### [id number] #### [facility] [address] [place] [address] Dr. Esthela Stevens Methodology: Comment Normal [facility] Comment on above: Result Comment: This liquid based ThinPrep(R) pap test was screened with the use of an image guided system. Performed By: #### [id number] #### [facility] [address] [place] [address] Dr. Esthela Stevens Note: Comment Normal [facility] Comment on above: Result Comment: The Pap smear is a screening test designed to aid in the detection of premalignant and malignant conditions of the uterine cervix. It is not a diagnostic procedure and should not be used as the sole means of detecting cervical cancer. Both false-positive and false-negative reports do occur. . Performed By: #### [id number] #### [facility] [address] [place] [address] Dr. Esthela Stevens Pathologist Provided ICD10 Comment Normal [facility] Comment on above: Result Comment: R87. [id number] Performed By: #### [id number] #### [facility] [address] [place] [address] Dr. Esthela Stevens Performed by: Comment Normal [facility] Comment on above: Result Comment: Nevin Ardon Primary Montessori Teacher (ASCP) Performed By: #### [id number] #### [facility] [address] [place] [address] Dr. Esthela Stevens Reflex Criteria: Comment Normal [facility] Comment on above: Result Comment: See below for HPV testing results. . Performed By: #### [id number] #### [facility] [address] [place] [address] Dr. Esthela Stevens Specimen adequacy: Comment Normal [facility] Comment on above: Result Comment: Sati sfactory for evaluation. Endocervical and/or squamous metaplastic cells (endocervical component) are present. Performed By: #### [id number] #### [facility] [address] [address] [address] Esthela Stevens CALCITONINon 07-08-2022 Calcitonin <1.89 Normal <=9.53 [facility] Comment on above: Result Comment: This test was performed on the [employer] Immunoassay platform by [employer] which is a two-site sandwich chemiluminescent immunoassay. It is important to note that assays using different manufacturers and/or methods may not be comparable. Performed By: #### Y CHGRA #### [facility] (DEFAULT) [address] [place] [address]496 CBC AND ELECTRONIC DIFFon Basophils (Bld) [#/Vol] 0.04 10*3/uL Normal 0.00-0.15 [facility] Comment on above: Performed By: #### C A, IPB, CHM7, MGO #### [facility] (DEFAULT) [address] [place] [address] 29133 Basophils/100 WBC (Bld) 0.7 % Normal [facility] Comment on above: Performed By: #### C A, IPB, CHM7, MGO #### [facility] (DEFAULT) [address] [place] [address] 72750 DIFF STATUS Electronic Differential Normal [facility] Comment on above: Performed By: #### C A, IPB, CHM7, MGO #### [facility] (DEFAULT) [address] [place] [address] 39683 Eosinophils (Bld) [#/Vol] 0.14 10*3/uL Normal 0.00-0.42 [facility] Comment on above: Performed By: #### C A, IPB, CHM7, MGO #### [facility] (DEFAULT) [address] [place] [address] 84350 Eosinophils/100 WBC (Bld) 2.4 % Normal [facility] Comment on above: Performed By: #### C A, IPB, CHM7, MGO #### [facility] (DEFAULT) [address] [place] [address] 60127 Hematocrit (Bld) [Volume fraction] 38.1 % Normal 34.9-44.3 [facility] Comment on above: Performed By: #### C A, IPB, CHM7, MGO #### [facility] (DEFAULT) [address] [place] [address] 47136 Hemoglobin (Bld) [Mass/Vol] 12.2 g/dL Normal 11.4-15.2 [facility] Comment on above: Performed By: #### Dayday A, IPB, CHM7, MGO #### [facility] (DEFAULT) [address] [place] [address] 59670 Immature Grans % 0.2 % Normal [facility] Comment on above: Performed By: #### C A, IPB, CHM7, MGO #### [facility] (DEFAULT) [address] [place] [address] 83225 Immature Grans Absolute < Normal <=0.08 [facility] Comment on above: Performed By: #### C A, IPB, CHM7, MGO #### [facility] (DEFAULT) [address] [place] [address] 09313 Lymphocytes (Bld) [#/Vol] 2.14 10*3/uL Normal 1.16-3.51 [facility] Comment on above: Performed By: #### C A, IPB, CHM7, MGO #### [facility] (DEFAULT) [address] [place] [address] 36912 Lymphocytes/100 WBC (Bld) 36.8 % Normal [facility] Comment on above: Performed By: #### C A, IPB, CHM7, MGO #### [facility] (DEFAULT) [address] [place] [address] 32904 MCV (RBC) [Entitic vol] 83.2 fL Normal 79.6-97.7 [facility] Comment on above: Performed By: #### RODRIGO Rangel CHM7, MGO #### [facility] (DEFAULT) [address] [place] [address] 42021 Mean Cell Hgb 26.6 pg Normal 25.9-33.9 [facility] Comment on above: Performed By: #### RODRIGO Rangel, CHM7, MGO #### [facility] (DEFAULT) [address] [place] [address] 58118 Mean Cell Hgb Conc 32.0 g/dL Normal 31.4-35.9 [facility] Comment on above: Performed By: #### RODRIGO Rangel, CHM7, MGO #### [facility] (DEFAULT) [address] [place] [address] 40419 Monocytes (Bld) [#/Vol] 0.49 10*3/uL Normal 0.22-0.87 [facility] Comment on above: Performed By: #### RODRIGO Rangel, MELVINM7, MGO #### [facility] (DEFAULT) [address] [address] Monocytes/100 WBC (Bld) 8.4 % Normal [facility] Comment on above: Performed By: #### RODRIGO Rangel, CHM7, MGO #### [facility] (DEFAULT) [address] [address] Nucleated RBC 0.0 /100 WBC Normal <=0.2 [facility] Comment on above: Performed By: #### RODRIGO Rangel, CHM7, MGO #### [facility] (DEFAULT) [address] [place] [address] 39134 Platelet mean volume (Bld) [Entitic vol] 9.0 fL Normal 8.5-12.2 [facility] Comment on above: Performed By: #### Dayday Santos IPB, CHM7, MGO #### [facility] (DEFAULT) [address] [place] [address] 37048 Platelets (Bld) [#/Vol] 273 10*3/uL Normal 150-393 [facility] Comment on above: Performed By: #### C A, IPB, CHM7, MGO #### [facility] (DEFAULT) [address] [place] [address] 78222 RBC (Bld) [#/Vol] 4.58 10*6/uL Normal 3.91-5.04 [facility] Comment on above: Performed By: #### C A, IPB, CHM7, MGO #### [facility] (DEFAULT) [address] [place] [address] 04050 RBC Distribution 13.0 % Normal 10.8-14.9 [facility] Comment on above: Performed By: #### C A, IPB, CHM7, MGO #### [facility] (DEFAULT) [address] [place] [address] 07621 Segs + Bands Auto 51.5 % Normal [facility] Comment on above: Performed By: #### C A, IPB, CHM7, MGO #### [facility] (DEFAULT) [address] [place] [address] 16660 Segs + Bands,Absolute Auto 2.99 K/uL Normal 1.64-7.28 [facility] Comment on above: Performed By: #### C A, IPB, CHM7, MGO #### [facility] (DEFAULT) [address] [place] [address] 89353 WBC (Bld) [#/Vol] 5.81 10*3/uL Normal 3.99-11.19 [facility] Comment on above: Performed By: #### C A, IPB, CHM7, MGO #### [facility] (DEFAULT) [address] [place] [address] 05074 CHROMOGRANIN Aon 07-08-2022 Chromogranin A 25 ng/mL Normal <93 [facility] Comment on above: Result Comment: ADDITIONAL INFORMATION This test was developed and its performance characteristics determined by [facility] in a manner consistent with CLIA [...] a homogeneous time-resolved immunofluorescent assay manufactured by [employer] and performed on the [employer] Kryptor Compact Plus. Values obtained with different assay methods or kits may be different and cannot be used interchangeably. Test results cannot be interpreted as absolute evidence for the presence or absence of malignant disease. Test Performed by: [address] [place] [address] Pipe [employer]: Ed Russo M.D. Ph.D.; CLIA# [id number] Performed By: #### C Danielle, IPB, CHM7, MGO #### [facility] (DEFAULT) [address] [place] [address] 62626 COMPREHENSIVE METABOLIC PANE Shamir 07-08-2022 Albumin [Mass/Vol] 4.7 g/dL Normal 3.5-5.0 [facility] Comment on above: Performed By: #### C A, IPB, CHM7, MGO, HFP #### [facility] (DEFAULT) [address] [place] [address] 77624 ALP [Catalytic activity/Vol] 67 U/L Normal 32-126 [facility] Comment on above: Performed By: #### C A, IPB, CHM7, MGO, HFP #### [facility] (DEFAULT) [address] [address] ALT [Catalytic activity/Vol] 88 U/L High 9-48 [facility] Comment on above: Performed By: #### C Danielle, IPB, CHM7, MGO, HFP #### [facility] (DEFAULT) [address] [place] [address] 19856 Anion gap [Moles/Vol] 12 mmol/L Normal 7-17 [facility] Comment on above: Performed By: #### C A, IPB, CHM7, MGO, HFP #### [facility] (DEFAULT) [address] [place] [address] 28594 AST [Catalytic activity/Vol] 42 U/L High 10-39 [facility] Comment on above: Performed By: #### C A, IPB, CHM7, MGO, HFP #### [facility] (DEFAULT) [address] [place] [address] 75111 Bilirubin [Mass/Vol] 0.5 mg/dL Normal <1.5 [facility] Comment on above: Performed By: #### C A, IPB, CHM7, MGO, HFP #### [facility] (DEFAULT) [address] [place] [address] 31988 Calcium [Mass/Vol] 9.8 mg/dL Normal 8.6-10.5 [facility] Comment on above: Performed By: #### C A, IPB, CHM7, MGO, HFP #### [facility] (DEFAULT) [address] [place] [address] 85666 Chloride [Moles/Vol] 103 mmol/L Normal 98-108 [facility] Comment on above: Performed By: #### C A, IPB, CHM7, MGO, HFP #### [facility] (DEFAULT) [address] [place] [address] 57089 CO2 [Moles/Vol] 28 mmol/L Normal 21-31 [facility] Comment on above: Performed By: #### C A, IPB, CHM7, MGO, HFP #### [facility] (DEFAULT) [address] [place] [address] 77564 Creatinine [Mass/Vol] 0.69 mg/dL Normal 0.50-1.20 [facility] Comment on above: Performed By: #### C A, IPB, CHM7, MGO, HFP #### [facility] (DEFAULT) [address] [place] [address] 54056 eGFR, CKD-EPI, Female > Normal >=60 [facility] Comment on above: Result Comment: Repo rted eGFR is based on the CKD-EPI 2020 equation using creatinine, age, and sex. Performed By: #### C Danielle, IPB, CHM7, MGO, HFP #### [facility] (DEFAULT) [address] [place] [address] 31432 Glucose [Mass/Vol] 93 mg/dL Normal 70-99 [facility] Comment on above: Performed By: #### C A, IPB, CHM7, MGO, HFP #### [facility] (DEFAULT) [address] [place] [address] 59235 Osmolality [Osmolality] 289 mosm/kg Normal 278-305 [facility] Comment on above: Performed By: #### C A, IPB, CHM7, MGO, HFP #### [facility] (DEFAULT) [address] [place] [address] 59315 Potassium [Moles/Vol] 4.2 mmol/L Normal 3.5-5.0 [facility] Comment on above: Performed By: #### C A, IPB, CHM7, MGO, HFP #### [facility] (DEFAULT) [address] [place] [address] 70505 Protein [Mass/Vol] 7.4 g/dL Normal 6.4-8.3 [facility] Comment on above: Performed By: #### C A, IPB, CHM7, MGO, HFP #### [facility] (DEFAULT) [address] [place] [address] 09931 Sodium [Moles/Vol] 139 mmol/L Normal 135-145 [facility] Comment on above: Performed By: #### RODRIGO Rangel, HUBERT, MGO, HFP #### [facility] (DEFAULT) [address] [place] [address] 58604 Urea nitrogen [Mass/Vol] 8 mg/dL Normal 7-25 [facility] Comment on above: Performed By: #### RODRIGO Rangel, HUBERT, MGO, HFP #### [facility] (DEFAULT) [address] [place] [address] 21083 Urea nitrogen/Creatinine [Mass ratio] 12 mg/mg Normal [facility] Comment on above: Performed By: #### RODRIGO Rangel, HUBERT, MGO, HFP #### [facility] (DEFAULT) [address] [place] [address] 20222 GASTRIN - NON-STIMULATEDon 09-08-2021 Gastrin 21 pg/mL Normal [facility] Comment on above: Result Comment: REFERENCE VALUE <100 Reference ranges valid for >= 8 hour fast. Test Performed by: [place] [address] Pipe Fitter [employer]: Ed Russo M.D. Ph.D.; CLIA# [id number] Performed By: #### Dayday Santos, RODRIGO, CHM7, MGO #### [facility] (DEFAULT) [address] [place] [address] 26462 LACTATE DEHYDROGENASEon - LD Total 133 U/L Normal 100-190 [facility] Comment on above: Performed By: #### Dayday Santos, SHANEKAB, CHM7, MGO, HFP #### [facility] (DEFAULT) [address] [place] [address] 87465 PANCREATIC POLYPEPTIDEon Pancreatic Polypeptide 94 pg/mL Normal <228 [facility] Comment on above: Result Comment: ADDITIONAL INFORMATION This test was developed and its performance characteristics determined by [facility] in a manner consistent with CLIA requirements. This test has not been cleared or approved by the U.S. Food and Drug Administration. Test Performed by: [facility] [address] [place] [address] Pipe Fitter [employer] Copper: Ed Russo M.D. Ph.D.; CLIA# [id number] Performed By: #### C A, IPB, CHM7, MGO #### [facility] (DEFAULT) [address] [place] [address] GI PANEL (PCR)on 06-03-2022 Adenovirus F 40/41 Not detected Normal NOT DETECTED [facility] Comment on above: Performed By: #### P REG #### [facility] [address] [place] [address] Dr. Esthela Stevens Astrovirus Not detected Normal NOT DETECTED [facility] Comment on above: Performed By: #### P REG #### [facility] [address] [place] [address] Dr. Esthela Anderson Diff toxin A/B Detected Critically abnormal NOT DETECTED [facility] Comment on above: Performed By: #### P REG #### [facility] [address] [place] [address] Dr. Esthela Stevens Campylobacter Not detected Normal NOT DETECTED [facility] Comment on above: Performed By: #### P REG #### [facility] [address] [place] [address] Dr. Esthela Stevens Cryptosporidium Not detected Normal NOT DETECTED [facility] Comment on above: Performed By: #### P REG #### [facility] [address] [place] [address] Dr. Esthela Stevens Cyclos. Cayetanensis Not detected Normal NOT DETECTED [facility] Comment on above: Performed By: #### P REG #### [facility] [address] [place] [address] Dr. Esthela Stevens E. Coli O157 Not Applicable Normal Not Applicable [facility] Comment on above: Performed By: #### P REG #### [facility] [address] [place] [address] Dr. Esthela Stevens E. histolytica Not detected Normal NOT DETECTED [facility] Comment on above: Performed By: #### P REG #### [facility] [address] [place] [address] Dr. Esthela Stevens EAEC Not detected Normal NOT DETECTED [facility] Comment on above: Performed By: #### P REG #### [facility] [address] [place] [address] Dr. Esthela Stevens EIEC Not detected Normal NOT DETECTED [facility] Comment on above: Performed By: #### P REG #### [facility] [address] [place] [address] Dr. Esthela Stevens EPEC Not detected Normal NOT DETECTED [facility] Comment on above: Performed By: #### P REG #### [facility] [address] [place] [address] Dr. Esthela Stevens ETEC Not detected Normal NOT DETECTED [facility] Comment on above: Performed By: #### P REG #### [facility] [address] [place] [address] Dr. Esthela Stevens G. Lamblia Not detected Normal NOT DETECTED [facility] Comment on above: Performed By: #### P REG #### [facility] [address] [place] [address] Dr. Esthela SANABRIAL CONTROLS PASSED Normal [facility] Comment on above: Performed By: #### P REG #### [facility] [address] [place] [address] Dr. Esthela MERCADO JON HEADER GI PANEL BACTERIA Normal T [facility] Comment on above: Performed By: #### P REG #### [facility] [address] [place] [address] Dr. Esthela MERCADOHD ECOLI GI PANEL DIARRHEAGENIC E.COLI / SHIGELLA Normal [facility] Comment on above: Performed By: #### P REG #### [facility] [address] [address] [address] Esthela LARA INFO SEE BELOW Normal [facility] Comment on above: Result Comment: EAEC - Enteroaggregative E. Coli EPEC- Enteropathogenic E. Coli ETEC- Enterotoxigenic E. Coli lt/st STEC- Shigella-like toxin-producing E. Coli stx1/stx2 EIEC- Shigella/Enteroinvasive E. Coli Performed By: #### P REG #### [facility] [address] [address] [address] Esthela LARA PARASITES GI PANEL PARASITES Normal [facility] Comment on above: Performed By: #### P REG #### [facility] [address] [place] [address] Dr. Esthela LARA VIRUS GI PANEL VIRUSES Normal [facility] Comment on above: Performed By: #### P REG #### [facility] [address] [address] [address] Esthela Stevens Norovirus GI/GII Not detected Normal NOT DETECTED [facility] Comment on above: Performed By: #### P REG #### [facility] [address] [place] [address] Dr. Esthela Herman. Shigelloides Not detected Normal NOT DETECTED [facility] Comment on above: Performed By: #### P REG #### [facility] [address] [address] [address] Esthela Stevens Rotavirus A Not detected Normal NOT DETECTED [facility] Comment on above: Performed By: #### P REG #### [facility] [address] [address] [address] Esthela Stevens Salmonella Not detected Normal NOT DETECTED [facility] Comment on above: Performed By: #### P REG #### [facility] [address] [place] [address] Dr. Esthela Stevens Sapovirus Not detected Normal NOT DETECTED [facility] Comment on above: Performed By: #### P REG #### [facility] [address] [place] [address] Dr. Esthela Stevens STEC Not detected Normal NOT DETECTED [facility] Comment on above: Performed By: #### P REG #### [facility] [address] [place] [address] Dr. Esthela Stevens Vibrio Not detected Normal NOT DETECTED [facility] Comment on above: Performed By: #### P REG #### [facility] [address] [place] [address] Dr. Esthela Stevens Vibrio Cholera Not detected Normal NOT DETECTED [facility] Comment on above: Performed By: #### P REG #### [facility] [address] [place] [address] Dr. Esthela Stevens Y. Enterocolitica Not detected Normal NOT DETECTED [facility] Comment on above: Performed By: #### P REG #### [facility] [address] [place] [address] Dr. Esthela Stevens CBC AUTO DIFFon 06-02-2022 BASO # 0.1 103/ul Normal 0.0-0.1 [facility] Comment on above: Performed By: #### L IVER, LDH, BMP #### [facility] [address] [place] [address] Dr. Esthela Stevens Basophils/100 WBC (Bld) 0.6 % Normal 0.2-2.0 [facility] Comment on above: Performed By: #### L IVER, LDH, BMP #### [facility] [address] [place] [address] Dr. Esthela Stevens EO # 0.5 103/ul Normal 0.0-0.7 [facility] Comment on above: Performed By: #### L IVER, LDH, BMP #### [facility] [address] [place] [address] Dr. Esthela Stevens Eosinophils/100 WBC (Bld) 4.3 % Normal 0.9-7.0 [facility] Comment on above: Performed By: #### L IVER, LDH, BMP #### [facility] [address] [place] [address] Dr. Esthela Stveens Erythrocyte distribution width (RBC) [Ratio] 13.0 % Normal 11.0-15.0 [facility] Comment on above: Performed By: #### L IVER, LDH, BMP #### [facility] [address] [place] [address] Dr. Esthela Stevesn Hematocrit (Bld) [Volume fraction] 33.6 % Critically low 36.0-48.0 [facility] Comment on above: Performed By: #### L IVER, LDH, BMP #### [facility] [address] [place] [address] Dr. Esthela Stevens Hemoglobin (Bld) [Mass/Vol] 10.9 g/dL Critically low 12.0-16.0 [facility] Comment on above: Performed By: #### L IVER, LDH, BMP #### [facility] [address] [place] [address] Dr. Esthela Stevens IG # 0.05 10e3/ul Critically high 0.00-0.03 [facility] Comment on above: Performed By: #### L IVER, LDH, BMP #### [facility] [address] [place] [address] Dr. Esthela Stevens IG % 0.5 % Normal 0.0-0.5 [facility] Comment on above: Performed By: #### L IVER, LDH, BMP #### [facility] [address] [place] [address] Dr. Esthela Stevens LYMPH # 2.4 103/ul Normal 1.2-3.8 [facility] Comment on above: Performed By: #### L IVER, LDH, BMP #### [facility] [address] [place] [address] Dr. Esthela Stevens Lymphocytes/100 WBC (Bld) 22.4 % Normal 20.5-60.0 [facility] Comment on above: Performed By: #### L IVER, LDH, BMP #### [facility] [address] [place] [address] Dr. Esthela Stevens MANUAL DIFF REQ NO Normal [facility] Comment on above: Performed By: #### L IVER, LDH, BMP #### [facility] [address] [place] [address] Dr. Esthela Stevens MCH (RBC) [Entitic mass] 26.9 pg Normal 26.7-34.0 [facility] Comment on above: Performed By: #### L IVER, LDH, BMP #### [facility] [address] [place] [address] Dr. Esthela Stevens MCHC (RBC) [Mass/Vol] 32.4 g/dL Normal 29.9-35.2 [facility] Comment on above: Performed By: #### L IVER, LDH, BMP #### [facility] [address] [place] [address] Dr. Esthela Stevens MCV (RBC) [Entitic vol] 83.0 fL Normal 81.0-99.0 [facility] Comment on above: Performed By: #### L IVER, LDH, BMP #### [facility] [address] [place] [address] Dr. Esthela Stevens MONO # 0.8 103/ul Normal 0.3-0.8 [facility] Comment on above: Performed By: #### L IVER, LDH, BMP #### [facility] [address] [place] [address] Dr. Esthela Stevens Monocytes/100 WBC (Bld) 7.1 % Normal 1.7-12.0 [facility] Comment on above: Performed By: #### L IVER, LDH, BMP #### [facility] [address] [place] [address] Dr. Esthela Stevens NEUT # 7.0 103/ul Critically high 1.4-6.5 [facility] Comment on above: Performed By: #### L IVER, LDH, BMP #### [facility] [address] [place] [address] Dr. Esthela Stevens Neutrophils/100 WBC (Bld) 65.1 % Normal 43.0-75.0 [facility] Comment on above: Performed By: #### L IVER, LDH, BMP #### [facility] [address] [place] [address] Dr. Esthela Stevens Platelet mean volume (Bld) [Entitic vol] 8.9 fL Critically low 9.5-13.5 [facility] Comment on above: Performed By: #### L IVER, LDH, BMP #### [facility] [address] [address] [address] Esthela Stevens PLT 519 103/ul Critically high 150-450 [facility] Comment on above: Performed By: #### L IVER, LDH, BMP #### [facility] [address] [address] [address] Esthela Stevens RBC 4.05 106/ul Critically low 4.20-5.40 [facility] Comment on above: Performed By: #### L IVER, LDH, BMP #### [facility] [address] [place] [address] Dr. Esthela Stevens WBC 10.8 103/ul Normal 4.0-11.0 [facility] Comment on above: Performed By: #### L IVER, LDH, BMP #### [facility] [address] [place] [address] Dr. Esthela Stevens PROF 14(COMP METB)on 06-02- 022 Albumin [Mass/Vol] 3.7 g/dL Normal 3.4-5.0 [facility] Comment on above: Performed By: #### L IVER, LDH, BMP #### [facility] [address] [place] [address] Dr. Esthela Stevens Albumin/Globulin [Mass ratio] 1.0 {ratio} Normal [facility] Comment on above: Performed By: #### L IVER, LDH, BMP #### [facility] [address] [place] [address] Dr. Esthela Stevens ALP [Catalytic activity/Vol] 75 U/L Normal 46-116 [facility] Comment on above: Performed By: #### L IVER, LDH, BMP #### [facility] [address] [place] [address] Dr. Esthela Stevens ALT [Catalytic activity/Vol] 95 U/L Critically high 14-59 [facility] Comment on above: Performed By: #### L IVER, LDH, BMP #### [facility] [address] [address] [address] Esthela Stevens Anion gap [Moles/Vol] 13.4 mmol/L Normal [facility] Comment on above: Performed By: #### L IVER, LDH, BMP #### [facility] [address] [address] [address] Esthela Stevens AST [Catalytic activity/Vol] 31 U/L Normal 15-37 [facility] Comment on above: Performed By: #### L IVER, LDH, BMP #### [facility] [address] [address] [address] Esthela Stevens Bilirubin [Mass/Vol] 0.1 mg/dL Critically low 0.2-1.0 [facility] Comment on above: Performed By: #### L IVER, LDH, BMP #### [facility] [address] [address] [address] Esthela Stevens Calcium [Mass/Vol] 9.3 mg/dL Normal 8.5-10.1 [facility] Comment on above: Performed By: #### L IVER, LDH, BMP #### [facility] [address] [address] [address] Esthela Stevens Chloride [Moles/Vol] 102 mmol/L Normal 98-107 [facility] Comment on above: Performed By: #### L IVER, LDH, BMP #### [facility] [address] [address] [address] Esthela Stevens CO2 [Moles/Vol] 26.4 mmol/L Normal 21.0-32.0 [facility] Comment on above: Performed By: #### L IVER, LDH, BMP #### [facility] [address] [address] [address] Esthela Stevens Creatinine [Mass/Vol] 0.67 mg/dL Normal 0.55-1.02 [facility] Comment on above: Performed By: #### L IVER, LDH, BMP #### [facility] [address] [address] [address] Esthela Stevens EGFR-AF NICARAGUAN >60 Normal >=60 [facility] Comment on above: Performed By: #### L IVER, LDH, BMP #### [facility] [address] [place] [address] Dr. Esthela Stevens EGFR-NON AF NICARAGUAN >60 Normal >=60 [facility] Comment on above: Performed By: #### L IVER, LDH, BMP #### [facility] [address] [place] [address] Dr. Esthela Stevens Globulin (S) [Mass/Vol] 3.7 g/dL Normal [facility] Comment on above: Performed By: #### L IVER, LDH, BMP #### [facility] [address] [place] [address] Dr. Esthela Stevens Glucose [Mass/Vol] 101 mg/dL Normal 74-106 [facility] Comment on above: Performed By: #### L IVER, LDH, BMP #### [facility] [address] [place] [address] Dr. Esthela Stevens Potassium [Moles/Vol] 3.8 mmol/L Normal 3.5-5.1 [facility] Comment on above: Performed By: #### L IVER, LDH, BMP #### [facility] [address] [place] [address] Dr. Esthela Stevens Protein [Mass/Vol] 7.4 g/dL Normal 6.4-8.2 [facility] Comment on above: Performed By: #### L IVER, LDH, BMP #### [facility] [address] [place] [address] Dr. Esthela Stevens Sodium [Moles/Vol] 138 mmol/L Normal 136-145 [facility] Comment on above: Performed By: #### L IVER, LDH, BMP #### [facility] [address] [place] [address] Dr. Esthela Stevens Urea nitrogen [Mass/Vol] 12.0 mg/dL Normal 7.0-18.0 [facility] Comment on above: Performed By: #### L IVER, LDH, BMP #### [facility] [address] [place] [address] Dr. Esthela Stevens Urea nitrogen/Creatinine [Mass ratio] 17.9 mg/mg Normal [facility] Comment on above: Performed By: #### L IVER, LDH, BMP #### [facility] [id number] Esthela Stevens CALCIUMon 05-29-2022 Calcium [Mass/Vol] 9.0 mg/dL Normal 8.6-10.5 [facility] Comment on above: Performed By: #### C A, IPB, CHM7, MGO #### [facility] (DEFAULT) [address] [place] [phone] Calcium [Mass/Vol] 9.0 mg/dL 8.6 - 10. 5 mg/dL [facility] CBC,PLATELETSon 05-29-2022 Hematocrit (Bld) [Volume fraction] 33.0 % Low 34.9-44.3 [facility] Comment on above: Performed By: #### C A, IPB, CHM7, MGO, HFP #### [facility] (DEFAULT) [address] [place] [address] Hemoglobin (Bld) [Mass/Vol] 10.5 g/dL Low 11.4-15.2 [facility] Comment on above: Performed By: #### C A, IPB, CHM7, MGO, HFP #### [facility] (DEFAULT) [address] [place] [address] MCV (RBC) [Entitic vol] 85.1 fL Normal 79.6-97.7 [facility] Comment on above: Performed By: #### C A, IPB, CHM7, MGO, HFP #### [facility] (DEFAULT) [address] [address] Mean Cell Hgb 27.1 pg Normal 25.9-33.9 [facility] Comment on above: Performed By: #### C A, IPB, CHM7, MGO, HFP #### [facility] (DEFAULT) [address] [place] [address] Mean Cell Hgb Conc 31.8 g/dL Normal 31.4-35.9 [facility] Comment on above: Performed By: #### C A, IPB, CHM7, MGO, HFP #### [facility] (DEFAULT) [address] [place] [address] Platelet mean volume (Bld) [Entitic vol] 9.1 fL Normal 8.5-12.2 [facility] Comment on above: Performed By: #### C A, IPB, CHM7, MGO, HFP #### [facility] (DEFAULT) [address] [place] [address] Platelets (Bld) [#/Vol] 423 10*3/uL High 150-393 [facility] Comment on above: Performed By: #### C A, IPB, CHM7, MGO, HFP #### [facility] (DEFAULT) [address] [place] [address] RBC (Bld) [#/Vol] 3.88 10*6/uL Low 3.91-5.04 [facility] Comment on above: Performed By: #### C A, IPB, CHM7, MGO, HFP #### [facility] (DEFAULT) [address] [place] [address]27 RBC Distribution 13.1 % Normal 10.8-14.9 [facility] Comment on above: Performed By: #### C A, IPB, CHM7, MGO, HFP #### [facility] (DEFAULT) [address] [place] [address] WBC (Bld) [#/Vol] 7.36 10*3/uL Normal 3.99-11.19 [facility] Comment on above: Performed By: #### C A, IPB, CHM7, MGO, HFP #### [facility] (DEFAULT) [address] [place] [address] Erythrocyte distribution width (RBC) [Ratio] 13.1 % 10.8 - 14.9 % [facility] Hematocrit (Bld) [Volume fraction] 33.0 % Low 34.9 - 44.3 % [facility] Hemoglobin (Bld) [Mass/Vol] 10.5 g/dL Low 11.4 - 15.2 g/dL [facility] Interpretation and review of laboratory results Abnormal [facility] MCH (RBC) [Entitic mass] 27.1 pg 25.9 - 33.9 pg [facility] MCHC (RBC) [Mass/Vol] 31.8 g/dL 31.4 - 35.9 g/dL [facility] MCV (RBC) [Entitic vol] 85.1 fL 79.6 - 97.7 fL [facility] Platelet mean volume (Bld) [Entitic vol] 9.1 fL 8.5 - 12.2 fL [facility] Platelets (Bld) [#/Vol] 423 10*3/uL High 150 - 393 K/uL [facility] RBC (Bld) [#/Vol] 3.88 10*6/uL Low [facility] WBC (Bld) [#/Vol] 7.36 10*3/uL 3.99 - 11. 19 K/uL [facility] CHEM 7 (LYTES,BUN,CREA,GLUC) on 05-29-2022 Anion gap [Moles/Vol] 13 mmol/L Normal 7-17 [facility] Comment on above: Performed By: #### C Danielle, IPB, CHM7, MGO #### [facility] (DEFAULT) [address] [place] [phone] Chloride [Moles/Vol] 104 mmol/L Normal 98-108 [facility] Comment on above: Performed By: #### C A, IPB, CHM7, MGO #### [facility] (DEFAULT) [address] [place] [address] CO2 [Moles/Vol] 26 mmol/L Normal 21-31 [facility] Comment on above: Performed By: #### C A, IPB, CHM7, MGO #### [facility] (DEFAULT) [address] [place] [address] Creatinine [Mass/Vol] 0.66 mg/dL Normal 0.50-1.20 [facility] Comment on above: Performed By: #### C A, IPB, CHM7, MGO #### [facility] (DEFAULT) [address] [place] [phone] eGFR, CKD-EPI, Female > Normal >=60 [facility] Comment on above: Result Comment: Repo rted eGFR is based on the CKD-EPI 2020 equation using creatinine, age, and sex. Performed By: #### C A, IPB, CHM7, MGO #### [facility] (DEFAULT) [address] [place] [address] Glucose [Mass/Vol] 93 mg/dL Normal 70-99 [facility] Comment on above: Performed By: #### C A, IPB, CHM7, MGO #### [facility] (DEFAULT) [address] [place] [address] Osmolality [Osmolality] 288 mosm/kg Normal 278-305 [facility] Comment on above: Performed By: #### C A, IPB, CHM7, MGO #### [facility] (DEFAULT) [address] [place] [address] Potassium [Moles/Vol] 4.2 mmol/L Normal 3.5-5.0 [facility] Comment on above: Performed By: #### C A, IPB, CHM7, MGO #### [facility] (DEFAULT) [address] [place] [address]83 Sodium [Moles/Vol] 139 mmol/L Normal 135-145 [facility] Comment on above: Performed By: #### C A, IPB, CHM7, MGO #### [facility] (DEFAULT) [address] [place] [address] [place] [address] Urea nitrogen [Mass/Vol] 5 mg/dL Low 7-25 [facility] Comment on above: Performed By: #### RODRIGO Rangel CHM7, SYBIL #### [facility] (DEFAULT) [address] [place] [address] Urea nitrogen/Creatinine [Mass ratio] 8 mg/mg Normal [facility] Comment on above: Performed By: #### RODIRGO Rangel CHM7, MGO #### [facility] (DEFAULT) [address] [place] [address] Anion gap [Moles/Vol] 13 mmol/L 7 - 17 mmol/L [facility] Chloride [Moles/Vol] 104 mmol/L 98 - 10 8 mmol/L [facility] CO2 [Moles/Vol] 26 mmol/L 21 - 31 mmol/L [facility] Creatinine [Mass/Vol] 0.66 mg/dL 0.50 - 1.20 mg/dL [facility] GFR/1.73 sq M.predicted CKD-EPI (S/P/Bld) [Vol rate/Area] - [facility] Comment on above: Reported eGFR is bas ed on the CKD-EPI 2020 equation using creatinine, age, and sex. Glucose [Mass/Vol] 93 mg/dL 70 - 99 mg/dL [facility] Osmolality Calc [Osmolality] 288 [facility] Potassium [Moles/Vol] 4.2 mmol/L 3.5 - 5.0 mmol/L [facility] Sodium [Moles/Vol] 139 mmol/L 135 - 145 mmol/L [facility] Urea nitrogen [Mass/Vol] 5 mg/dL Low 7 - 25 mg/dL [facility] Urea nitrogen/Creatinine [Mass ratio] 8 mg/mg [facility] MAGNESIUMon 05-29-2022 Magnesium [Mass/Vol] 2.1 mg/dL Normal 1.6-2.6 [facility] Comment on above: Performed By: #### C A, IPB, CHM7, MGO #### [facility] (DEFAULT) [address] [place] [address]289 Magnesium [Mass/Vol] 2.1 mg/dL 1.6 - 2 .6 mg/dL [facility] No Panel Informationon 05-29 Interpretation and review of laboratory results Abnormal [facility] Interpretation and review of laboratory results Normal [facility] PHOSPHATE, INORGANICon 05-29 Phosphorous 4.8 mg/dL High 2.2-4.6 [facility] Comment on above: Performed By: #### Dayday Santos, IPB, CHM7, MGO #### [facility] (DEFAULT) [address] [place] [address] 02746 Phosphate [Mass/Vol] 4.8 mg/dL High 2.2 - 4 .6 mg/dL [facility] CALCIUMon 05-28-2022 Calcium [Mass/Vol] 8.6 mg/dL Normal 8.6-10.5 [facility] Comment on above: Performed By: #### C Danielle, IPB, CHM7, MGO #### [facility] (DEFAULT) [address] [place] [address]01 Calcium [Mass/Vol] 8.6 mg/dL 8.6 - 10. 5 mg/dL [facility] CBC,PLATELETSon 05-28-2022 Hematocrit (Bld) [Volume fraction] 30.5 % Low 34.9-44.3 [facility] Comment on above: Performed By: #### C A, IPB, CHM7, MGO, HFP #### [facility] (DEFAULT) [address] [place] [address]17 Hemoglobin (Bld) [Mass/Vol] 9.8 g/dL Low 11.4-15.2 [facility] Comment on above: Performed By: #### C A, IPB, CHM7, MGO, HFP #### [facility] (DEFAULT) [address] [place] [address] 47443 MCV (RBC) [Entitic vol] 83.6 fL Normal 79.6-97.7 [facility] Comment on above: Performed By: #### C Danielle, IPB, CHM7, MGO, HFP #### [facility] (DEFAULT) [address] [place] [address] 37086 Mean Cell Hgb 26.8 pg Normal 25.9-33.9 [facility] Comment on above: Performed By: #### C Danielle, IPB, CHM7, MGO, HFP #### [facility] (DEFAULT) [address] [place] [address] 56570 Mean Cell Hgb Conc 32.1 g/dL Normal 31.4-35.9 [facility] Comment on above: Performed By: #### Dayday A, IPB, CHM7, MGO, HFP #### [facility] (DEFAULT) [address] [place] [address] 25667 Platelet mean volume (Bld) [Entitic vol] 9.3 fL Normal 8.5-12.2 [facility] Comment on above: Performed By: #### Dayday A, IPB, CHM7, MGO, HFP #### [facility] (DEFAULT) [address] [place] [address] 36513 Platelets (Bld) [#/Vol] 374 10*3/uL Normal 150-393 [facility] Comment on above: Performed By: #### C A, IPB, CHM7, MGO, HFP #### [facility] (DEFAULT) [address] [place] [address] 36271 RBC (Bld) [#/Vol] 3.65 10*6/uL Low 3.91-5.04 [facility] Comment on above: Performed By: #### C A, IPB, CHM7, MGO, HFP #### [facility] (DEFAULT) [address] [place] [address] 17077 RBC Distribution 13.0 % Normal 10.8-14.9 [facility] Comment on above: Performed By: #### C Danielle, IPB, CHM7, MGO, HFP #### [facility] (DEFAULT) [address] [place] [address] WBC (Bld) [#/Vol] 6.07 10*3/uL Normal 3.99-11.19 [facility] Comment on above: Performed By: #### C Danielle, IPB, CHM7, MGO, HFP #### [facility] (DEFAULT) [address] [place] [address] Erythrocyte distribution width (RBC) [Ratio] 13.0 % 10.8 - 14.9 % [facility] Hematocrit (Bld) [Volume fraction] 30.5 % Low 34.9 - 44.3 % [facility] Hemoglobin (Bld) [Mass/Vol] 9.8 g/dL Low 11.4 - 15.2 g/dL [facility] Interpretation and review of laboratory results Abnormal [facility] MCH (RBC) [Entitic mass] 26.8 pg 25.9 - 33.9 pg [facility] MCHC (RBC) [Mass/Vol] 32.1 g/dL 31.4 - 35.9 g/dL [facility] MCV (RBC) [Entitic vol] 83.6 fL 79.6 - 97.7 fL [facility] Platelet mean volume (Bld) [Entitic vol] 9.3 fL 8.5 - 12.2 fL [facility] Platelets (Bld) [#/Vol] 374 10*3/uL 150 - 393 K/uL [facility] RBC (Bld) [#/Vol] 3.65 10*6/uL Low [facility] WBC (Bld) [#/Vol] 6.07 10*3/uL 3.99 - 11. 19 K/uL [facility] CHEM 7 (LYTES,BUN,CREA,GLUC) on 05-28-2022 Anion gap [Moles/Vol] 11 mmol/L Normal 7-17 [facility] Comment on above: Performed By: #### C Danielle, IPB, CHM7, MGO #### [facility] (DEFAULT) [address] [place] [address] 00292 Chloride [Moles/Vol] 106 mmol/L Normal 98-108 [facility] Comment on above: Performed By: #### C A, IPB, CHM7, MGO #### [facility] (DEFAULT) [address] [place] [address] 24102 CO2 [Moles/Vol] 25 mmol/L Normal 21-31 [facility] Comment on above: Performed By: #### Dayday Santos IPB, CHM7, MGO #### [facility] (DEFAULT) [address] [place] [address] 31134 Creatinine [Mass/Vol] 0.50 mg/dL Normal 0.50-1.20 [facility] Comment on above: Performed By: #### Dayday Santos IPB, CHM7, MGO #### [facility] (DEFAULT) [address] [place] [address] 27984 eGFR, CKD-EPI, Female > Normal >=60 [facility] Comment on above: Result Comment: Repo rted eGFR is based on the CKD-EPI 2020 equation using creatinine, age, and sex. Performed By: #### Dayday Santos, IPB, CHM7, MGO #### [facility] (DEFAULT) [address] [place] [address] 11926 Glucose [Mass/Vol] 89 mg/dL Normal 70-99 [facility] Comment on above: Performed By: #### C A, IPB, CHM7, MGO #### [facility] (DEFAULT) [address] [place] [address] 55618 Osmolality [Osmolality] 285 mosm/kg Normal 278-305 [facility] Comment on above: Performed By: #### C A, IPB, CHM7, MGO #### [facility] (DEFAULT) [address] [place] [address] 16423 Potassium [Moles/Vol] 4.1 mmol/L Normal 3.5-5.0 [facility] Comment on above: Performed By: #### RODRIGO Rangel CHM7, MGO #### [facility] (DEFAULT) [address] [place] [address] 92626 Sodium [Moles/Vol] 138 mmol/L Normal 135-145 [facility] Comment on above: Performed By: #### RODRIGO Rangel, HUBERT, MGO #### [facility] (DEFAULT) [address] [place] [address] 72014 Urea nitrogen [Mass/Vol] 3 mg/dL Low 7-25 [facility] Comment on above: Performed By: #### RODRIGO Rangel, HUBERT, MGO #### [facility] (DEFAULT) [address] [place] [address] 33557 Urea nitrogen/Creatinine [Mass ratio] 6 mg/mg Normal [facility] Comment on above: Performed By: #### RODRIGO Rangel, MELVINM7, MGO #### [facility] (DEFAULT) [address] [place] [address] 81947 Anion gap [Moles/Vol] 11 mmol/L 7 - 17 mmol/L [facility] Chloride [Moles/Vol] 106 mmol/L 98 - 10 8 mmol/L [facility] CO2 [Moles/Vol] 25 mmol/L 21 - 31 mmol/L [facility] Creatinine [Mass/Vol] 0.50 mg/dL 0.50 - 1.20 mg/dL [facility] GFR/1.73 sq M.predicted CKD-EPI (S/P/Bld) [Vol rate/Area] - [facility] Comment on above: Reported eGFR is bas ed on the CKD-EPI 2020 equation using creatinine, age, and sex. Glucose [Mass/Vol] 89 mg/dL 70 - 99 mg/dL [facility] Osmolality Calc [Osmolality] 285 [facility] Potassium [Moles/Vol] 4.1 mmol/L 3.5 - 5.0 mmol/L [facility] Sodium [Moles/Vol] 138 mmol/L 135 - 145 mmol/L [facility] Urea nitrogen [Mass/Vol] 3 mg/dL Low 7 - 25 mg/dL [facility] Urea nitrogen/Creatinine [Mass ratio] 6 mg/mg [facility] MAGNESIUMon 05-28-2022 Magnesium [Mass/Vol] 1.8 mg/dL Normal 1.6-2.6 [facility] Comment on above: Performed By: #### RODRIGO Rangel CHM7, MGO #### [facility] (DEFAULT) [address] [place] [address] 07925 Magnesium [Mass/Vol] 1.8 mg/dL 1.6 - 2 .6 mg/dL [facility] No Panel Informationon 05-28 Interpretation and review of laboratory results Abnormal [facility] Interpretation and review of laboratory results Normal [facility] PHOSPHATE, INORGANICon 05-28 Phosphorous 4.9 mg/dL High 2.2-4.6 [facility] Comment on above: Performed By: #### RODRIGO Rangel CHM7, MGO #### [facility] (DEFAULT) [address] [place] [address] Phosphate [Mass/Vol] 4.9 mg/dL High 2.2 - 4 .6 mg/dL [facility] CALCIUMon 05-27-2022 Calcium [Mass/Vol] 8.6 mg/dL Normal 8.6-10.5 [facility] Comment on above: Performed By: #### RODRIGO Rangel CHM7, MGO #### [facility] (DEFAULT) [address] [place] [address] Calcium [Mass/Vol] 8.6 mg/dL 8.6 - 10. 5 mg/dL [facility] CBC,PLATELETSon 05-27-2022 Hematocrit (Bld) [Volume fraction] 31.1 % Low 34.9-44.3 [facility] Comment on above: Performed By: #### C A, IPB, CHM7, MGO #### [facility] (DEFAULT) [address] [place] [address] 49949 Hemoglobin (Bld) [Mass/Vol] 10.1 g/dL Low 11.4-15.2 [facility] Comment on above: Performed By: #### Dayday A, IPB, CHM7, MGO #### [facility] (DEFAULT) [address] [place] [address] 46661 MCV (RBC) [Entitic vol] 83.8 fL Normal 79.6-97.7 [facility] Comment on above: Performed By: #### Dayday A, IPB, CHM7, MGO #### [facility] (DEFAULT) [address] [place] [address] 33377 Mean Cell Hgb 27.2 pg Normal 25.9-33.9 [facility] Comment on above: Performed By: #### C A, IPB, CHM7, MGO #### [facility] (DEFAULT) [address] [place] [address] 10333 Mean Cell Hgb Conc 32.5 g/dL Normal 31.4-35.9 [facility] Comment on above: Performed By: #### C A, IPB, CHM7, MGO #### [facility] (DEFAULT) [address] [place] [address] 96782 Platelet mean volume (Bld) [Entitic vol] 9.2 fL Normal 8.5-12.2 [facility] Comment on above: Performed By: #### C A, IPB, CHM7, MGO #### [facility] (DEFAULT) [address] [place] [address] 10629 Platelets (Bld) [#/Vol] 344 10*3/uL Normal 150-393 [facility] Comment on above: Performed By: #### C A, IPB, CHM7, MGO #### [facility] (DEFAULT) [address] [place] [address] 37694 RBC (Bld) [#/Vol] 3.71 10*6/uL Low 3.91-5.04 [facility] Comment on above: Performed By: #### Dayday Santos, RODRIGO, CHM7, MGO #### [facility] (DEFAULT) [address] [place] [address] 12432 RBC Distribution 12.9 % Normal 10.8-14.9 [facility] Comment on above: Performed By: #### Dayday Santos, SHANEKAB, CHM7, MGO #### [facility] (DEFAULT) [address] [place] [address] 62917 WBC (Bld) [#/Vol] 6.21 10*3/uL Normal 3.99-11.19 [facility] Comment on above: Performed By: #### Dayday Santos, RODRIGO, CHM7, MGO #### [facility] (DEFAULT) [address] [place] [address] 92004 Erythrocyte distribution width (RBC) [Ratio] 12.9 % 10.8 - 14.9 % [facility] Hematocrit (Bld) [Volume fraction] 31.1 % Low 34.9 - 44.3 % [facility] Hemoglobin (Bld) [Mass/Vol] 10.1 g/dL Low 11.4 - 15.2 g/dL [facility] Interpretation and review of laboratory results Abnormal [facility] MCH (RBC) [Entitic mass] 27.2 pg 25.9 - 33.9 pg [facility] MCHC (RBC) [Mass/Vol] 32.5 g/dL 31.4 - 35.9 g/dL [facility] MCV (RBC) [Entitic vol] 83.8 fL 79.6 - 97.7 fL [facility] Platelet mean volume (Bld) [Entitic vol] 9.2 fL 8.5 - 12.2 fL [facility] Platelets (Bld) [#/Vol] 344 10*3/uL 150 - 393 K/uL [facility] RBC (Bld) [#/Vol] 3.71 10*6/uL Low [facility] WBC (Bld) [#/Vol] 6.21 10*3/uL 3.99 - 11. 19 K/uL [facility] CHEM 7 (LYTES,BUN,CREA,GLUC) on 05-27-2022 Anion gap [Moles/Vol] 11 mmol/L Normal 7-17 [facility] Comment on above: Performed By: #### C A, IPB, CHM7, MGO #### [facility] (DEFAULT) [address] [place] [address] 15786 Chloride [Moles/Vol] 105 mmol/L Normal 98-108 [facility] Comment on above: Performed By: #### C A, IPB, CHM7, MGO #### [facility] (DEFAULT) [address] [place] [address] 09017 CO2 [Moles/Vol] 26 mmol/L Normal 21-31 [facility] Comment on above: Performed By: #### C A, IPB, CHM7, MGO #### [facility] (DEFAULT) [address] [place] [address] 66819 Creatinine [Mass/Vol] 0.49 mg/dL Low 0.50-1.20 [facility] Comment on above: Performed By: #### C A, IPB, CHM7, MGO #### [facility] (DEFAULT) [address] [place] [address] 61991 eGFR, CKD-EPI, Female > Normal >=60 [facility] Comment on above: Result Comment: Repo rted eGFR is based on the CKD-EPI 2020 equation using creatinine, age, and sex. Performed By: #### C A, IPB, CHM7, MGO #### [facility] (DEFAULT) [address] [place] [address] 55008 Glucose [Mass/Vol] 93 mg/dL Normal 70-99 [facility] Comment on above: Performed By: #### Dayday Santos, IPB, CHM7, MGO #### [facility] (DEFAULT) [address] [place] [address] 01076 Osmolality [Osmolality] 285 mosm/kg Normal 278-305 [facility] Comment on above: Performed By: #### Dayday Santos, IPB, CHM7, MGO #### [facility] (DEFAULT) [address] [place] [address] 11203 Potassium [Moles/Vol] 4.0 mmol/L Normal 3.5-5.0 [facility] Comment on above: Performed By: #### Dayday Santos, IPB, CHM7, MGO #### [facility] (DEFAULT) [address] [place] [address] 42739 Sodium [Moles/Vol] 138 mmol/L Normal 135-145 [facility] Comment on above: Performed By: #### Dayday Santos, IPB, CHM7, MGO #### [facility] (DEFAULT) [address] [place] [address] 96237 Urea nitrogen [Mass/Vol] 3 mg/dL Low 7-25 [facility] Comment on above: Performed By: #### Dayday A, IPB, CHM7, MGO #### [facility] (DEFAULT) [address] [place] [address] 74907 Urea nitrogen/Creatinine [Mass ratio] 6 mg/mg Normal [facility] Comment on above: Performed By: #### C A, IPB, CHM7, MGO #### [facility] (DEFAULT) [address] [place] [address] 67101 Anion gap [Moles/Vol] 11 mmol/L 7 - 17 mmol/L [facility] Chloride [Moles/Vol] 105 mmol/L 98 - 10 8 mmol/L [facility] CO2 [Moles/Vol] 26 mmol/L 21 - 31 mmol/L [facility] Creatinine [Mass/Vol] 0.49 mg/dL Low 0.50 - 1.20 mg/dL [facility] GFR/1.73 sq M.predicted CKD-EPI (S/P/Bld) [Vol rate/Area] - [facility] Comment on above: Reported eGFR is bas ed on the CKD-EPI 2020 equation using creatinine, age, and sex. Glucose [Mass/Vol] 93 mg/dL 70 - 99 mg/dL [facility] Interpretation and review of laboratory results Abnormal [facility] Osmolality Calc [Osmolality] 285 [facility] Potassium [Moles/Vol] 4.0 mmol/L 3.5 - 5.0 mmol/L [facility] Sodium [Moles/Vol] 138 mmol/L 135 - 145 mmol/L [facility] Urea nitrogen [Mass/Vol] 3 mg/dL Low 7 - 25 mg/dL [facility] Urea nitrogen/Creatinine [Mass ratio] 6 mg/mg [facility] MAGNESIUMon 05-27-2022 Magnesium [Mass/Vol] 1.9 mg/dL Normal 1.6-2.6 [facility] Comment on above: Performed By: #### RODRIGO Rangel, HUBERT, MGO #### [facility] (DEFAULT) [address] [address] Magnesium [Mass/Vol] 1.9 mg/dL 1.6 - 2 .6 mg/dL [facility] No Panel Informationon 05-27 Interpretation and review of laboratory results Normal [facility] PHOSPHATE, INORGANICon 05-27 Phosphorous 4.5 mg/dL Normal 2.2-4.6 [facility] Comment on above: Performed By: #### RODRIGO Rangel, CHM7, MGO #### [facility] (DEFAULT) [address] [address] Phosphate [Mass/Vol] 4.5 mg/dL 2.2 - 4 .6 mg/dL [facility] CALCIUMon 05-26-2022 Calcium [Mass/Vol] 8.4 mg/dL Low 8.6-10.5 [facility] Comment on above: Performed By: #### C A, IPB, CHM7, MGO #### [facility] (DEFAULT) [address] [address] Calcium [Mass/Vol] 8.4 mg/dL Low 8.6 - 10. 5 mg/dL [facility] CBC,PLATELETSon 05-26-2022 Hematocrit (Bld) [Volume fraction] 31.5 % Low 34.9-44.3 [facility] Comment on above: Performed By: #### Y CHGRA #### [facility] (DEFAULT) [address] [address] Hemoglobin (Bld) [Mass/Vol] 10.0 g/dL Low 11.4-15.2 [facility] Comment on above: Performed By: #### Y CHGRA #### [facility] (DEFAULT) [address] [address] MCV (RBC) [Entitic vol] 84.9 fL Normal 79.6-97.7 [facility] Comment on above: Performed By: #### Y CHGRA #### [facility] (DEFAULT) [address] [address] Mean Cell Hgb 27.0 pg Normal 25.9-33.9 [facility] Comment on above: Performed By: #### Y CHGRA #### [facility] (DEFAULT) [address] [address] Mean Cell Hgb Conc 31.7 g/dL Normal 31.4-35.9 [facility] Comment on above: Performed By: #### Y CHGRA #### [facility] (DEFAULT) [address] [address] Platelet mean volume (Bld) [Entitic vol] 9.7 fL Normal 8.5-12.2 [facility] Comment on above: Performed By: #### Y CHGRA #### [facility] (DEFAULT) [address] [place] [address] 32454 Platelets (Bld) [#/Vol] 327 10*3/uL Normal 150-393 [facility] Comment on above: Performed By: #### Y CHGRA #### [facility] (DEFAULT) [address] [place] [address] 73001 RBC (Bld) [#/Vol] 3.71 10*6/uL Low 3.91-5.04 [facility] Comment on above: Performed By: #### Y CHGRA #### [facility] (DEFAULT) [address] [place] [address] 70234 RBC Distribution 12.8 % Normal 10.8-14.9 [facility] Comment on above: Performed By: #### Y CHGRA #### [facility] (DEFAULT) [address] [place] [address] 12799 WBC (Bld) [#/Vol] 7.91 10*3/uL Normal 3.99-11.19 [facility] Comment on above: Performed By: #### Y CHGRA #### [facility] (DEFAULT) [address] [address] Erythrocyte distribution width (RBC) [Ratio] 12.8 % 10.8 - 14.9 % [facility] Hematocrit (Bld) [Volume fraction] 31.5 % Low 34.9 - 44.3 % [facility] Hemoglobin (Bld) [Mass/Vol] 10.0 g/dL Low 11.4 - 15.2 g/dL [facility] Interpretation and review of laboratory results Abnormal [facility] MCH (RBC) [Entitic mass] 27.0 pg 25.9 - 33.9 pg [facility] MCHC (RBC) [Mass/Vol] 31.7 g/dL 31.4 - 35.9 g/dL [facility] MCV (RBC) [Entitic vol] 84.9 fL 79.6 - 97.7 fL [facility] Platelet mean volume (Bld) [Entitic vol] 9.7 fL 8.5 - 12.2 fL [facility] Platelets (Bld) [#/Vol] 327 10*3/uL 150 - 393 K/uL [facility] RBC (Bld) [#/Vol] 3.71 10*6/uL Low [facility] WBC (Bld) [#/Vol] 7.91 10*3/uL 3.99 - 11. 19 K/uL [facility] CHEM 7 (LYTES,BUN,CREA,GLUC) on 05-26-2022 Anion gap [Moles/Vol] 13 mmol/L Normal 7-17 [facility] Comment on above: Performed By: #### Y CHGRA #### [facility] (DEFAULT) [address] [place] [address] 91453 Chloride [Moles/Vol] 102 mmol/L Normal 98-108 [facility] Comment on above: Performed By: #### Y CHGRA #### [facility] (DEFAULT) [address] [place] [address] 45307 CO2 [Moles/Vol] 23 mmol/L Normal 21-31 [facility] Comment on above: Performed By: #### Y CHGRA #### [facility] (DEFAULT) [address] [place] [address] 25547 Creatinine [Mass/Vol] 0.48 mg/dL Low 0.50-1.20 [facility] Comment on above: Performed By: #### Y CHGRA #### [facility] (DEFAULT) [address] [place] [address] [id number] eGFR, CKD-EPI, Female > Normal >=60 [facility] Comment on above: Result Comment: Repo rted eGFR is based on the CKD-EPI 2020 equation using creatinine, age, and sex. Performed By: #### Y CHGRA #### [facility] (DEFAULT) [address] [place] [address] 30698 Glucose [Mass/Vol] 154 mg/dL High 70-99 [facility] Comment on above: Performed By: #### Y CHGRA #### [facility] (DEFAULT) [address] [place] [address] 97828 Osmolality [Osmolality] 282 mosm/kg Normal 278-305 [facility] Comment on above: Performed By: #### Y CHGRA #### [facility] (DEFAULT) [address] [place] [address] 64463 Potassium [Moles/Vol] 4.1 mmol/L Normal 3.5-5.0 [facility] Comment on above: Performed By: #### Y CHGRA #### [facility] (DEFAULT) [address] [place] [address] 83593 Sodium [Moles/Vol] 134 mmol/L Low 135-145 [facility] Comment on above: Performed By: #### Y CHGRA #### [facility] (DEFAULT) [address] [place] [address] 53749 Urea nitrogen [Mass/Vol] 3 mg/dL Low 7-25 [facility] Comment on above: Performed By: #### Y CHGRA #### [facility] (DEFAULT) [address] [place] [address] 75071 Urea nitrogen/Creatinine [Mass ratio] 6 mg/mg Normal [facility] Comment on above: Performed By: #### Y CHGRA #### [facility] (DEFAULT) [address] [place] [address] 25350 Anion gap [Moles/Vol] 13 mmol/L 7 - 17 mmol/L [facility] Chloride [Moles/Vol] 102 mmol/L 98 - 10 8 mmol/L [facility] CO2 [Moles/Vol] 23 mmol/L 21 - 31 mmol/L [facility] Creatinine [Mass/Vol] 0.48 mg/dL Low 0.50 - 1.20 mg/dL [facility] GFR/1.73 sq M.predicted CKD-EPI (S/P/Bld) [Vol rate/Area] - PINF [facility] Comment on above: Reported eGFR is bas ed on the CKD-EPI 2020 equation using creatinine, age, and sex. Glucose [Mass/Vol] 154 mg/dL High 70 - 99 mg/dL [facility] Osmolality Calc [Osmolality] 282 [facility] Potassium [Moles/Vol] 4.1 mmol/L 3.5 - 5.0 mmol/L [facility] Sodium [Moles/Vol] 134 mmol/L Low 135 - 145 mmol/L [facility] Urea nitrogen [Mass/Vol] 3 mg/dL Low 7 - 25 mg/dL [facility] Urea nitrogen/Creatinine [Mass ratio] 6 mg/mg [facility] MAGNESIUMon 05-26-2022 Magnesium [Mass/Vol] 1.8 mg/dL Normal 1.6-2.6 [facility] Comment on above: Performed By: #### Y CHGRA #### [facility] (DEFAULT) [address] [address] Magnesium [Mass/Vol] 1.8 mg/dL 1.6 - 2 .6 mg/dL [facility] No Panel Informationon 05-26 Interpretation and review of laboratory results Abnormal [facility] Interpretation and review of laboratory results Normal [facility] PHOSPHATE, INORGANICon 05-26 Phosphorous 3.4 mg/dL Normal 2.2-4.6 [facility] Comment on above: Performed By: #### Y CHGRA #### [facility] (DEFAULT) [address] [place] [address] 48891 Phosphate [Mass/Vol] 3.4 mg/dL 2.2 - 4 .6 mg/dL [facility] CALCIUMon 05-25-2022 Calcium [Mass/Vol] 8.5 mg/dL Low 8.6 - 10. 5 mg/dL [facility] Calcium [Mass/Vol] 8.5 mg/dL Low 8.6-10.5 [facility] Comment on above: Performed By: #### Dayday Santos, IPB, CHM7, MGO #### [facility] (DEFAULT) [address] [place] [address] 55903 CBC,PLATELETSon 05-25-2022 Hematocrit (Bld) [Volume fraction] 31.7 % Low 34.9-44.3 [facility] Comment on above: Performed By: #### Dayday Santos, IPB, CHM7, MGO #### [facility] (DEFAULT) [address] [place] [address] 88394 Hemoglobin (Bld) [Mass/Vol] 9.8 g/dL Low 11.4-15.2 [facility] Comment on above: Performed By: #### Dayday Santos, IPB, CHM7, MGO #### [facility] (DEFAULT) [address] [place] [address] 85259 MCV (RBC) [Entitic vol] 85.9 fL Normal 79.6-97.7 [facility] Comment on above: Performed By: #### Dayday Santos, IPB, CHM7, MGO #### [facility] (DEFAULT) [address] [place] [address] 47931 Mean Cell Hgb 26.6 pg Normal 25.9-33.9 [facility] Comment on above: Performed By: #### Dayday A, IPB, CHM7, MGO #### [facility] (DEFAULT) [address] [place] [address] 77116 Mean Cell Hgb Conc 30.9 g/dL Low 31.4-35.9 [facility] Comment on above: Performed By: #### Dayday A, IPB, CHM7, MGO #### [facility] (DEFAULT) [address] [place] [address] 73463 Platelet mean volume (Bld) [Entitic vol] 9.7 fL Normal 8.5-12.2 [facility] Comment on above: Performed By: #### C A, IPB, CHM7, MGO #### [facility] (DEFAULT) [address] [place] [address] 15112 Platelets (Bld) [#/Vol] 292 10*3/uL Normal 150-393 [facility] Comment on above: Performed By: #### C Danielle, IPB, CHM7, MGO #### [facility] (DEFAULT) [address] [place] [address] 54442 RBC (Bld) [#/Vol] 3.69 10*6/uL Low 3.91-5.04 [facility] Comment on above: Performed By: #### Dayday A, IPB, CHM7, MGO #### [facility] (DEFAULT) [address] [place] [address] 42396 RBC Distribution 12.8 % Normal 10.8-14.9 [facility] Comment on above: Performed By: #### Dayday A, IPB, CHM7, MGO #### [facility] (DEFAULT) [address] [place] [address] 92378 WBC (Bld) [#/Vol] 9.85 10*3/uL Normal 3.99-11.19 [facility] Comment on above: Performed By: #### Dayday A, IPB, CHM7, MGO #### [facility] (DEFAULT) [address] [place] [address] 54431 Erythrocyte distribution width (RBC) [Ratio] 12.8 % 10.8 - 14.9 % [facility] Hematocrit (Bld) [Volume fraction] 31.7 % Low 34.9 - 44.3 % [facility] Hemoglobin (Bld) [Mass/Vol] 9.8 g/dL Low 11.4 - 15.2 g/dL [facility] Interpretation and review of laboratory results Abnormal [facility] MCH (RBC) [Entitic mass] 26.6 pg 25.9 - 33.9 pg [facility] MCHC (RBC) [Mass/Vol] 30.9 g/dL Low 31.4 - 35.9 g/dL [facility] MCV (RBC) [Entitic vol] 85.9 fL 79.6 - 97.7 fL [facility] Platelet mean volume (Bld) [Entitic vol] 9.7 fL 8.5 - 12.2 fL [facility] Platelets (Bld) [#/Vol] 292 10*3/uL 150 - 393 K/uL [facility] RBC (Bld) [#/Vol] 3.69 10*6/uL Low [facility] WBC (Bld) [#/Vol] 9.85 10*3/uL 3.99 - 11. 19 K/uL [facility] CHEM 7 (LYTES,BUN,CREA,GLUC) on 05-25-2022 Anion gap [Moles/Vol] 13 mmol/L 7 - 17 mmol/L [facility] Chloride [Moles/Vol] 104 mmol/L 98 - 10 8 mmol/L [facility] CO2 [Moles/Vol] 24 mmol/L 21 - 31 mmol/L [facility] Creatinine [Mass/Vol] 0.51 mg/dL 0.50 - 1.20 mg/dL [facility] GFR/1.73 sq M.predicted CKD-EPI (S/P/Bld) [Vol rate/Area] - [facility] Comment on above: Reported eGFR is bas ed on the CKD-EPI 2020 equation using creatinine, age, and sex. Glucose [Mass/Vol] 98 mg/dL 70 - 99 mg/dL [facility] Osmolality Calc [Osmolality] 283 [facility] Potassium [Moles/Vol] 4.0 mmol/L 3.5 - 5.0 mmol/L [facility] Sodium [Moles/Vol] 137 mmol/L 135 - 145 mmol/L [facility] Urea nitrogen [Mass/Vol] 2 mg/dL Low 7 - 25 mg/dL [facility] Urea nitrogen/Creatinine [Mass ratio] 4 mg/mg [facility] Anion gap [Moles/Vol] 13 mmol/L Normal 7-17 [facility] Comment on above: Performed By: #### C A, IPB, CHM7, MGO #### [facility] (DEFAULT) [address] [place] [address] 82201 Chloride [Moles/Vol] 104 mmol/L Normal 98-108 [facility] Comment on above: Performed By: #### C A, IPB, CHM7, MGO #### [facility] (DEFAULT) [address] [place] [address] 78843 CO2 [Moles/Vol] 24 mmol/L Normal 21-31 [facility] Comment on above: Performed By: #### C A, IPB, CHM7, MGO #### [facility] (DEFAULT) [address] [place] [address] 86444 Creatinine [Mass/Vol] 0.51 mg/dL Normal 0.50-1.20 [facility] Comment on above: Performed By: #### Dayday Santos, IPB, CHM7, MGO #### [facility] (DEFAULT) [address] [place] [address] 74329 eGFR, CKD-EPI, Female > Normal >=60 [facility] Comment on above: Result Comment: Repo rted eGFR is based on the CKD-EPI 2020 equation using creatinine, age, and sex. Performed By: #### C A, IPB, CHM7, MGO #### [facility] (DEFAULT) [address] [place] [address] 07167 Glucose [Mass/Vol] 98 mg/dL Normal 70-99 [facility] Comment on above: Performed By: #### C A, IPB, CHM7, MGO #### [facility] (DEFAULT) [address] [place] [address] 74884 Osmolality [Osmolality] 283 mosm/kg Normal 278-305 [facility] Comment on above: Performed By: #### C A, IPB, CHM7, MGO #### [facility] (DEFAULT) [address] [place] [address] 79005 Potassium [Moles/Vol] 4.0 mmol/L Normal 3.5-5.0 [facility] Comment on above: Performed By: #### RODRIGO Rangel CHM7, MGO #### [facility] (DEFAULT) [address] [place] [address] 81508 Sodium [Moles/Vol] 137 mmol/L Normal 135-145 [facility] Comment on above: Performed By: #### RODRIGO Rangel CHM7, MGO #### [facility] (DEFAULT) [address] [place] [address] 95796 Urea nitrogen [Mass/Vol] 2 mg/dL Low 7-25 [facility] Comment on above: Performed By: #### RODRIGO Rangel CHM7, MGO #### [facility] (DEFAULT) [address] [place] [address] 94287 Urea nitrogen/Creatinine [Mass ratio] 4 mg/mg Normal [facility] Comment on above: Performed By: #### RODRIGO Rangel CHM7, MGO #### [facility] (DEFAULT) [address] [place] [address] 61433 MAGNESIUMon 05-25-2022 Magnesium [Mass/Vol] 1.8 mg/dL 1.6 - 2 .6 mg/dL [facility] Magnesium [Mass/Vol] 1.8 mg/dL Normal 1.6-2.6 [facility] Comment on above: Performed By: #### RODRIGO Rangel CHM7, MGO #### [facility] (DEFAULT) [address] [place] [address] 81632 No Panel Informationon 05-25 Interpretation and review of laboratory results Abnormal [facility] Interpretation and review of laboratory results Normal [facility] PHOSPHATE, INORGANICon 05-25 Phosphate [Mass/Vol] 3.2 mg/dL 2.2 - 4 .6 mg/dL [facility] Phosphorous 3.2 mg/dL Normal 2.2-4.6 [facility] Comment on above: Performed By: #### C A, IPB, CHM7, MGO #### [facility] (DEFAULT) [address] [place] [address] 34738 CALCIUMon 05-24-2022 Calcium [Mass/Vol] 7.9 mg/dL Low 8.6-10.5 [facility] Comment on above: Performed By: #### C Danielle, IPB, CHM7, MGO, HFP #### [facility] (DEFAULT) [address] [place] [address] 40790 Calcium [Mass/Vol] 7.9 mg/dL Low 8.6 - 10. 5 mg/dL [facility] CBC,PLATELETSon 05-24-2022 Hematocrit (Bld) [Volume fraction] 33.0 % Low 34.9-44.3 [facility] Comment on above: Performed By: #### Y CHGRA #### [facility] (DEFAULT) [address] [place] [address] 73080 Hemoglobin (Bld) [Mass/Vol] 10.4 g/dL Low 11.4-15.2 [facility] Comment on above: Performed By: #### Y CHGRA #### [facility] (DEFAULT) [address] [place] [address] 45528 MCV (RBC) [Entitic vol] 86.2 fL Normal 79.6-97.7 [facility] Comment on above: Performed By: #### Y CHGRA #### [facility] (DEFAULT) [address] [place] [address] 28587 Mean Cell Hgb 27.2 pg Normal 25.9-33.9 [facility] Comment on above: Performed By: #### Y CHGRA #### [facility] (DEFAULT) [address] [place] [address] 94342 Mean Cell Hgb Conc 31.5 g/dL Normal 31.4-35.9 [facility] Comment on above: Performed By: #### Y CHGRA #### [facility] (DEFAULT) [address] [place] [address] 57256 Platelet mean volume (Bld) [Entitic vol] 9.7 fL Normal 8.5-12.2 [facility] Comment on above: Performed By: #### Y CHGRA #### [facility] (DEFAULT) [address] [place] [address] 86135 Platelets (Bld) [#/Vol] 270 10*3/uL Normal 150-393 [facility] Comment on above: Performed By: #### Y CHGRA #### [facility] (DEFAULT) [address] [place] [address] 52249 RBC (Bld) [#/Vol] 3.83 10*6/uL Low 3.91-5.04 [facility] Comment on above: Performed By: #### Y CHGRA #### [facility] (DEFAULT) [address] [place] [address] 22721 RBC Distribution 13.2 % Normal 10.8-14.9 [facility] Comment on above: Performed By: #### Y CHGRA #### [facility] (DEFAULT) [address] [place] [address] 84635 WBC (Bld) [#/Vol] 13.10 10*3/uL High 3.99-11.19 [facility] Comment on above: Performed By: #### Y CHGRA #### [facility] (DEFAULT) [address] [place] [address] 92296 Erythrocyte distribution width (RBC) [Ratio] 13.2 % 10.8 - 14.9 % [facility] Hematocrit (Bld) [Volume fraction] 33.0 % Low 34.9 - 44.3 % [facility] Hemoglobin (Bld) [Mass/Vol] 10.4 g/dL Low 11.4 - 15.2 g/dL [facility] Interpretation and review of laboratory results Abnormal [facility] MCH (RBC) [Entitic mass] 27.2 pg 25.9 - 33.9 pg [facility] MCHC (RBC) [Mass/Vol] 31.5 g/dL 31.4 - 35.9 g/dL [facility] MCV (RBC) [Entitic vol] 86.2 fL 79.6 - 97.7 fL [facility] Platelet mean volume (Bld) [Entitic vol] 9.7 fL 8.5 - 12.2 fL [facility] Platelets (Bld) [#/Vol] 270 10*3/uL 150 - 393 K/uL [facility] RBC (Bld) [#/Vol] 3.83 10*6/uL Low [facility] WBC (Bld) [#/Vol] 13.10 10*3/uL High 3.99 - 11 .19 K/uL [facility] CHEM 7 (LYTES,BUN,CREA,GLUC) on 05-24-2022 Anion gap [Moles/Vol] 10 mmol/L Normal 7-17 [facility] Comment on above: Performed By: #### C A, IPB, CHM7, MGO, HFP #### [facility] (DEFAULT) [address] [place] [address] 30752 Chloride [Moles/Vol] 105 mmol/L Normal 98-108 [facility] Comment on above: Performed By: #### C A, IPB, CHM7, MGO, HFP #### [facility] (DEFAULT) [address] [place] [address] 51796 CO2 [Moles/Vol] 24 mmol/L Normal 21-31 [facility] Comment on above: Performed By: #### C A, IPB, CHM7, MGO, HFP #### [facility] (DEFAULT) [address] [place] [address] 52547 Creatinine [Mass/Vol] 0.51 mg/dL Normal 0.50-1.20 [facility] Comment on above: Performed By: #### C A, IPB, CHM7, MGO, HFP #### [facility] (DEFAULT) [address] [place] [address] 76139 eGFR, CKD-EPI, Female > Normal >=60 [facility] Comment on above: Result Comment: Repo rted eGFR is based on the CKD-EPI 2020 equation using creatinine, age, and sex. Performed By: #### C A, IPB, CHM7, MGO, HFP #### [facility] (DEFAULT) [address] [place] [address] 68484 Glucose [Mass/Vol] 121 mg/dL High 70-99 [facility] Comment on above: Performed By: #### C A, IPB, CHM7, MGO, HFP #### [facility] (DEFAULT) [address] [place] [address] 73572 Osmolality [Osmolality] 281 mosm/kg Normal 278-305 [facility] Comment on above: Performed By: #### C A, IPB, CHM7, MGO, HFP #### [facility] (DEFAULT) [address] [place] [address] 15767 Potassium [Moles/Vol] 4.1 mmol/L Normal 3.5-5.0 [facility] Comment on above: Performed By: #### C A, IPB, CHM7, MGO, HFP #### [facility] (DEFAULT) [address] [place] [address] 23279 Sodium [Moles/Vol] 135 mmol/L Normal 135-145 [facility] Comment on above: Performed By: #### C A, IPB, CHM7, MGO, HFP #### [facility] (DEFAULT) [address] [place] [address] 85424 Urea nitrogen [Mass/Vol] 2 mg/dL Low 7-25 [facility] Comment on above: Performed By: #### C A, IPB, CHM7, MGO, HFP #### [facility] (DEFAULT) [address] [place] [address] 24172 Urea nitrogen/Creatinine [Mass ratio] 4 mg/mg Normal [facility] Comment on above: Performed By: #### C RODRIGO Santos, MELVINMRenee, MGO, HFP #### [facility] (DEFAULT) [address] [place] [address] Anion gap [Moles/Vol] 10 mmol/L 7 - 17 mmol/L [facility] Chloride [Moles/Vol] 105 mmol/L 98 - 10 8 mmol/L [facility] CO2 [Moles/Vol] 24 mmol/L 21 - 31 mmol/L [facility] Creatinine [Mass/Vol] 0.51 mg/dL 0.50 - 1.20 mg/dL [facility] GFR/1.73 sq M.predicted CKD-EPI (S/P/Bld) [Vol rate/Area] - PINF [facility] Comment on above: Reported eGFR is bas ed on the CKD-EPI 2020 equation using creatinine, age, and sex. Glucose [Mass/Vol] 121 mg/dL High 70 - 99 mg/dL [facility] Osmolality Calc [Osmolality] 281 [facility] Potassium [Moles/Vol] 4.1 mmol/L 3.5 - 5.0 mmol/L [facility] Sodium [Moles/Vol] 135 mmol/L 135 - 145 mmol/L [facility] Urea nitrogen [Mass/Vol] 2 mg/dL Low 7 - 25 mg/dL [facility] Urea nitrogen/Creatinine [Mass ratio] 4 mg/mg [facility] MAGNESIUMon 05-24-2022 Magnesium [Mass/Vol] 1.7 mg/dL Normal 1.6-2.6 [facility] Comment on above: Performed By: #### C RODRIGO Santos, MELVINM7, MGO, HFP #### [facility] (DEFAULT) [address] [place] [address] Interpretation and review of laboratory results Normal [facility] Magnesium [Mass/Vol] 1.7 mg/dL 1.6 - 2 .6 mg/dL [facility] No Panel Informationon 05-24 Interpretation and review of laboratory results Abnormal [facility] PHOSPHATE, INORGANICon 05-24 Phosphorous 2.1 mg/dL Low 2.2-4.6 [facility] Comment on above: Performed By: #### C A, IPB, CHM7, MGO, HFP #### [facility] (DEFAULT) [address] [place] [address] 75158 Phosphate [Mass/Vol] 2.1 mg/dL Low 2.2 - 4 .6 mg/dL [facility] CALCIUMon 05-23-2022 Calcium [Mass/Vol] 8.0 mg/dL Low 8.6-10.5 [facility] Comment on above: Performed By: #### C A, IPB, CHM7, MGO #### [facility] (DEFAULT) [address] [place] [address] 63998 Calcium [Mass/Vol] 8.0 mg/dL Low 8.6 - 10. 5 mg/dL [facility] Interpretation and review of laboratory results Abnormal [facility] CBC,PLATELETSon 05-23-2022 Hematocrit (Bld) [Volume fraction] 38.4 % Normal 34.9-44.3 [facility] Comment on above: Performed By: #### Y CHGRA #### [facility] (DEFAULT) [address] [place] [address] 01770 Hemoglobin (Bld) [Mass/Vol] 12.3 g/dL Normal 11.4-15.2 [facility] Comment on above: Performed By: #### Y CHGRA #### [facility] (DEFAULT) [address] [place] [address] 41623 MCV (RBC) [Entitic vol] 83.7 fL Normal 79.6-97.7 [facility] Comment on above: Performed By: #### Y CHGRA #### [facility] (DEFAULT) [address] [place] [address] 40589 Mean Cell Hgb 26.8 pg Normal 25.9-33.9 [facility] Comment on above: Performed By: #### Y CHGRA #### [facility] (DEFAULT) [address] [place] [address] 85824 Mean Cell Hgb Conc 32.0 g/dL Normal 31.4-35.9 [facility] Comment on above: Performed By: #### Y CHGRA #### [facility] (DEFAULT) [address] [place] [address] 55590 Platelet mean volume (Bld) [Entitic vol] 9.6 fL Normal 8.5-12.2 [facility] Comment on above: Performed By: #### Y CHGRA #### [facility] (DEFAULT) [address] [place] [address] 95553 Platelets (Bld) [#/Vol] 354 10*3/uL Normal 150-393 [facility] Comment on above: Performed By: #### Y CHGRA #### [facility] (DEFAULT) [address] [place] [address] 78328 RBC (Bld) [#/Vol] 4.59 10*6/uL Normal 3.91-5.04 [facility] Comment on above: Performed By: #### Y CHGRA #### [facility] (DEFAULT) [address] [place] [address] 02573 RBC Distribution 13.0 % Normal 10.8-14.9 [facility] Comment on above: Performed By: #### Y CHGRA #### [facility] (DEFAULT) [address] [place] [address] 52080 WBC (Bld) [#/Vol] 12.80 10*3/uL High 3.99-11.19 [facility] Comment on above: Performed By: #### Y CHGRA #### [facility] (DEFAULT) [address] [place] [address] 82498 Erythrocyte distribution width (RBC) [Ratio] 13.0 % 10.8 - 14.9 % [facility] Hematocrit (Bld) [Volume fraction] 38.4 % 34.9 - 44.3 % [facility] Hemoglobin (Bld) [Mass/Vol] 12.3 g/dL 11.4 - 15.2 g/dL [facility] Interpretation and review of laboratory results Abnormal [facility] MCH (RBC) [Entitic mass] 26.8 pg 25.9 - 33.9 pg [facility] MCHC (RBC) [Mass/Vol] 32.0 g/dL 31.4 - 35.9 g/dL [facility] MCV (RBC) [Entitic vol] 83.7 fL 79.6 - 97.7 fL [facility] [facility] mean volume (Bld) [Entitic vol] 9.6 fL 8.5 - 12.2 fL [facility] Platelets (Bld) [#/Vol] 354 10*3/uL 150 - 393 K/uL [facility] RBC (Bld) [#/Vol] 4.59 10*6/uL [facility] WBC (Bld) [#/Vol] 12.80 10*3/uL High 3.99 - 11 .19 K/uL [facility] CHEM 7 (LYTES,BUN,CREA,GLUC) on 05-23-2022 Anion gap [Moles/Vol] 13 mmol/L Normal 7-17 [facility] Comment on above: Performed By: #### RODRIGO Rangel, MELVINM7, MGO #### [facility] (DEFAULT) [address] [address] Chloride [Moles/Vol] 103 mmol/L Normal 98-108 [facility] Comment on above: Performed By: #### RODRIGO Rangel, MELVINM7, MGO #### [facility] (DEFAULT) [address] [address] CO2 [Moles/Vol] 24 mmol/L Normal 21-31 [facility] Comment on above: Performed By: #### RODRIGO Rangel, CHM7, MGO #### [facility] (DEFAULT) [address] [place] [address] Creatinine [Mass/Vol] 0.68 mg/dL Normal 0.50-1.20 [facility] Comment on above: Performed By: #### RODRIGO Rangel CHM7, MGO #### [facility] (DEFAULT) [address] [place] [address] eGFR, CKD-EPI, Female > Normal >=60 [facility] Comment on above: Result Comment: Repo rted eGFR is based on the CKD-EPI 2020 equation using creatinine, age, and sex. Performed By: #### RODRIGO Rangel CHM7, MGO #### [facility] (DEFAULT) [address] [place] [address] Glucose [Mass/Vol] 148 mg/dL High 70-99 [facility] Comment on above: Performed By: #### RODRIGO Rangel CHM7, MGO #### [facility] (DEFAULT) [address] [place] [address] Osmolality [Osmolality] 285 mosm/kg Normal 278-305 [facility] Comment on above: Performed By: #### RODRIGO Rangel CHM7, MGO #### [facility] (DEFAULT) [address] [place] [address] Potassium [Moles/Vol] 4.9 mmol/L Normal 3.5-5.0 [facility] Comment on above: Performed By: #### RODRIGO Rangel, CHM7, MGO #### [facility] (DEFAULT) [address] [place] [address] Sodium [Moles/Vol] 135 mmol/L Normal 135-145 [facility] Comment on above: Performed By: #### RODRIGO Rangel, CHM7, MGO #### [facility] (DEFAULT) [address] [place] [address] Urea nitrogen [Mass/Vol] 4 mg/dL Low 7-25 [facility] Comment on above: Performed By: #### C A, IPB, CHM7, MGO #### [facility] (DEFAULT) [address] [place] [address] Urea nitrogen/Creatinine [Mass ratio] 6 mg/mg Normal [facility] Comment on above: Performed By: #### C A, IPB, CHM7, MGO #### [facility] (DEFAULT) [address] [place] [address] CHEM 7 (LYTES,BUN,CREA,GLUC) Ordered By: Shraddha Munguia on 05-23-2022 Anion gap [Moles/Vol] 13 mmol/L 7 - 17 mmol/L [facility] Chloride [Moles/Vol] 103 mmol/L 98 - 10 8 mmol/L [facility] CO2 [Moles/Vol] 24 mmol/L 21 - 31 mmol/L [facility] Creatinine [Mass/Vol] 0.68 mg/dL 0.50 - 1.20 mg/dL [facility] GFR/1.73 sq M.predicted CKD-EPI (S/P/Bld) [Vol rate/Area] - PINF [facility] Comment on above: Reported eGFR is bas ed on the CKD-EPI 2020 equation using creatinine, age, and sex. Glucose [Mass/Vol] 148 mg/dL High 70 - 99 mg/dL [facility] Interpretation and review of laboratory results Abnormal [facility] Osmolality Calc [Osmolality] 285 [facility] Potassium [Moles/Vol] 4.9 mmol/L 3.5 - 5.0 mmol/L [facility] Sodium [Moles/Vol] 135 mmol/L 135 - 145 mmol/L [facility] Urea nitrogen [Mass/Vol] 4 mg/dL Low 7 - 25 mg/dL [facility] Urea nitrogen/Creatinine [Mass ratio] 6 mg/mg [facility] MAGNESIUMon 05-23-2022 Magnesium [Mass/Vol] 2.5 mg/dL Normal 1.6-2.6 [facility] Comment on above: Performed By: #### RODRIGO Rangel, HUBERT, MGO #### [facility] (DEFAULT) [address] [place] [address] Magnesium [Mass/Vol] 2.5 mg/dL 1.6 - 2 .6 mg/dL [facility] No Panel Informationon 05-23 Interpretation and review of laboratory results Normal [facility] PHOSPHATE, INORGANICon 05-23 Phosphorous 2.7 mg/dL Normal 2.2-4.6 [facility] Comment on above: Performed By: #### RODRIGO Rangel, HUBERT, MGO #### [facility] (DEFAULT) [address] [place] [address] Phosphate [Mass/Vol] 2.7 mg/dL 2.2 - 4 .6 mg/dL [facility] BETA HCG, URINE (POC DEVICE) on 05-22-2022 Beta HCG ( test) Ql (U) Negative Negative [facility] Interpretation and review of laboratory results Normal [facility] Test performed at address of the patient encounter. [facility] CALCIUMon 05-22-2022 Calcium [Mass/Vol] 7.8 mg/dL Low 8.6-10.5 [facility] Comment on above: Performed By: #### RODRIGO Rangel, MELVINMRenee, MGO, HFP #### [facility] (DEFAULT) [address] [place] [address] Calcium [Mass/Vol] 7.8 mg/dL Low 8.6 - 10. 5 mg/dL [facility] CBC,PLATELETSon 05-22-2022 Hematocrit (Bld) [Volume fraction] 37.0 % Normal 34.9-44.3 [facility] Comment on above: Performed By: #### Y CHGRA #### [facility] (DEFAULT) [address] [place] [address] Hemoglobin (Bld) [Mass/Vol] 12.0 g/dL Normal 11.4-15.2 [facility] Comment on above: Performed By: #### Y CHGRA #### [facility] (DEFAULT) [address] [address] MCV (RBC) [Entitic vol] 81.0 fL Normal 79.6-97.7 [facility] Comment on above: Performed By: #### Y CHGRA #### [facility] (DEFAULT) [address] [address] Mean Cell Hgb 26.3 pg Normal 25.9-33.9 [facility] Comment on above: Performed By: #### Y CHGRA #### [facility] (DEFAULT) [address] [address] Mean Cell Hgb Conc 32.4 g/dL Normal 31.4-35.9 [facility] Comment on above: Performed By: #### Y CHGRA #### [facility] (DEFAULT) [address] [address] Platelet mean volume (Bld) [Entitic vol] 9.5 fL Normal 8.5-12.2 [facility] Comment on above: Performed By: #### Y CHGRA #### [facility] (DEFAULT) [address] [address] Platelets (Bld) [#/Vol] 350 10*3/uL Normal 150-393 [facility] Comment on above: Performed By: #### Y CHGRA #### [facility] (DEFAULT) [address] [address] RBC (Bld) [#/Vol] 4.57 10*6/uL Normal 3.91-5.04 [facility] Comment on above: Performed By: #### Y CHGRA #### [facility] (DEFAULT) [address] [address] RBC Distribution 12.7 % Normal 10.8-14.9 [facility] Comment on above: Performed By: #### Y CHGRA #### [facility] (DEFAULT) [address] [place] [address] WBC (Bld) [#/Vol] 17.70 10*3/uL High 3.99-11.19 [facility] Comment on above: Performed By: #### Y CHGRA #### [facility] (DEFAULT) [address] [place] [address] Erythrocyte distribution width (RBC) [Ratio] 12.7 % 10.8 - 14.9 % [facility] Hematocrit (Bld) [Volume fraction] 37.0 % 34.9 - 44.3 % [facility] Hemoglobin (Bld) [Mass/Vol] 12.0 g/dL 11.4 - 15.2 g/dL [facility] Interpretation and review of laboratory results Abnormal [facility] MCH (RBC) [Entitic mass] 26.3 pg 25.9 - 33.9 pg [facility] MCHC (RBC) [Mass/Vol] 32.4 g/dL 31.4 - 35.9 g/dL [facility] MCV (RBC) [Entitic vol] 81.0 fL 79.6 - 97.7 fL [facility] Platelet mean volume (Bld) [Entitic vol] 9.5 fL 8.5 - 12.2 fL [facility] Platelets (Bld) [#/Vol] 350 10*3/uL 150 - 393 K/uL [facility] RBC (Bld) [#/Vol] 4.57 10*6/uL [facility] WBC (Bld) [#/Vol] 17.70 10*3/uL High 3.99 - 11 .19 K/uL [facility] CHEM 7 (LYTES,BUN,CREA,GLUC) on 05-22-2022 Anion gap [Moles/Vol] 16 mmol/L Normal 7-17 [facility] Comment on above: Performed By: #### C A, IPB, CHM7, MGO, HFP #### [facility] (DEFAULT) [address] [place] [address] Chloride [Moles/Vol] 103 mmol/L Normal 98-108 [facility] Comment on above: Performed By: #### C A, IPB, CHM7, MGO, HFP #### [facility] (DEFAULT) [address] [place] [address] CO2 [Moles/Vol] 21 mmol/L Normal 21-31 [facility] Comment on above: Performed By: #### C A, IPB, CHM7, MGO, HFP #### [facility] (DEFAULT) [address] [place] [address] Creatinine [Mass/Vol] 0.56 mg/dL Normal 0.50-1.20 [facility] Comment on above: Performed By: #### C A, IPB, CHM7, MGO, HFP #### [facility] (DEFAULT) [address] [place] [address] eGFR, CKD-EPI, Female > Normal >=60 [facility] Comment on above: Result Comment: Repo rted eGFR is based on the CKD-EPI 2020 equation using creatinine, age, and sex. Performed By: #### C A, IPB, CHM7, MGO, HFP #### [facility] (DEFAULT) [address] [place] [address] Glucose [Mass/Vol] 133 mg/dL High 70-99 [facility] Comment on above: Performed By: #### C A, IPB, CHM7, MGO, HFP #### [facility] (DEFAULT) [address] [place] [address] Osmolality [Osmolality] 285 mosm/kg Normal 278-305 [facility] Comment on above: Performed By: #### C A, IPB, CHM7, MGO, HFP #### [facility] (DEFAULT) [address] [place] [address] Potassium [Moles/Vol] 3.9 mmol/L Normal 3.5-5.0 [facility] Comment on above: Performed By: #### C Danielle, IPB, CHM7, MGO, HFP #### [facility] (DEFAULT) [address] [place] [address] Sodium [Moles/Vol] 136 mmol/L Normal 135-145 [facility] Comment on above: Performed By: #### Dayday Santos, IPB, CHM7, MGO, HFP #### [facility] (DEFAULT) [address] [place] [address] Urea nitrogen [Mass/Vol] 6 mg/dL Low 7-25 [facility] Comment on above: Performed By: #### Dayday Santos, IPB, CHM7, MGO, HFP #### [facility] (DEFAULT) [address] [place] [address] Urea nitrogen/Creatinine [Mass ratio] 11 mg/mg Normal [facility] Comment on above: Performed By: #### Dayday Santos, IPB, CHM7, MGO, HFP #### [facility] (DEFAULT) [address] [place] [address] Anion gap [Moles/Vol] 16 mmol/L 7 - 17 mmol/L [facility] Chloride [Moles/Vol] 103 mmol/L 98 - 10 8 mmol/L [facility] CO2 [Moles/Vol] 21 mmol/L 21 - 31 mmol/L [facility] Creatinine [Mass/Vol] 0.56 mg/dL 0.50 - 1.20 mg/dL [facility] GFR/1.73 sq M.predicted CKD-EPI (S/P/Bld) [Vol rate/Area] - [facility] Comment on above: Reported eGFR is bas ed on the CKD-EPI 2020 equation using creatinine, age, and sex. Glucose [Mass/Vol] 133 mg/dL High 70 - 99 mg/dL [facility] Osmolality Calc [Osmolality] 285 [facility] Potassium [Moles/Vol] 3.9 mmol/L 3.5 - 5.0 mmol/L [facility] Sodium [Moles/Vol] 136 mmol/L 135 - 145 mmol/L [facility] Urea nitrogen [Mass/Vol] 6 mg/dL Low 7 - 25 mg/dL [facility] Urea nitrogen/Creatinine [Mass ratio] 11 mg/mg [facility] CONTINUOUS CARDIAC MONITORIN G STRIPon 05-22-2022 [facility] CONTINUOUS CARDIAC MONITORIN G STRIPOrdered By: Unassigned Pacs on 05-22-2022 [facility] Work Phone: HEPATIC FUNCTION PANELon Albumin [Mass/Vol] 3.8 g/dL Normal 3.5-5.0 [facility] Comment on above: Performed By: #### C A, IPB, CHM7, MGO, HFP #### [facility] (DEFAULT) [address] [place] [address] ALP [Catalytic activity/Vol] 54 U/L Normal 32-126 [facility] Comment on above: Performed By: #### C A, IPB, CHM7, MGO, HFP #### [facility] (DEFAULT) [address] [place] [address] ALT [Catalytic activity/Vol] 17 U/L Normal 9-48 [facility] Comment on above: Performed By: #### C A, IPB, CHM7, MGO, HFP #### [facility] (DEFAULT) [address] [place] [address] AST [Catalytic activity/Vol] 23 U/L Normal 10-39 [facility] Comment on above: Performed By: #### C A, IPB, CHM7, MGO, HFP #### [facility] (DEFAULT) [address] [place] [address] Bilirubin [Mass/Vol] 0.5 mg/dL Normal <1.5 [facility] Comment on above: Performed By: #### C A, IPB, CHM7, MGO, HFP #### [facility] (DEFAULT) [address] [place] [address] Bilirubin.indirect [Mass/Vol] 0.2 mg/dL Normal <0.3 [facility] Comment on above: Performed By: #### C Danielle IPB, CHM7, MGO, HFP #### [facility] [address] [place] [address] Protein [Mass/Vol] 6.3 g/dL Low 6.4-8.3 [facility] Comment on above: Performed By: #### C Danielle IPBrett, CHM7, MGO, HFP #### [facility] (DEFAULT) [address] [place] [address] Albumin [Mass/Vol] 3.8 g/dL 3.5 - 5.0 g/dL [facility] ALP [Catalytic activity/Vol] 54 U/L 32 - 126 U/L [facility] ALT [Catalytic activity/Vol] 17 U/L 9 - 48 U/L [facility] AST [Catalytic activity/Vol] 23 U/L 10 - 39 U/L [facility] Bilirubin [Mass/Vol] 0.5 [facility] Bilirubin.direct [Mass/Vol] 0.2 mg/dL NINF - 0.3 mg/dL [facility] Protein [Mass/Vol] 6.3 g/dL Low 6.4 - 8.3 g/dL [facility] MAGNESIUMon 05-22-2022 Magnesium [Mass/Vol] 1.4 mg/dL Low 1.6-2.6 [facility] Comment on above: Performed By: #### C Danielle, SHANEKAB, CHM7, MGO, HFP #### [facility] (DEFAULT) [address] [place] [address] Magnesium [Mass/Vol] 1.4 mg/dL Low 1.6 - 2 .6 mg/dL [facility] No Panel Informationon 05-22 ABO/RH(D) TYPE Positive [facility] BLOOD COMPONENT TYPE Red Cells, Leukoreduced [facility] EXPIRATION DATE [facility] Product ABO/RH(D) Positive [facility] Product ABO/RH(D) NUMBER [id number] [facility] PRODUCT CODE [id number] [facility] UNIT STATUS released [facility] Interpretation and review of laboratory results Abnormal [facility] PHOSPHATE, INORGANICon 05-22 Phosphorous 3.3 mg/dL Normal 2.2-4.6 [facility] Comment on above: Performed By: #### C A, IPB, CHM7, MGO, HFP #### [facility] (DEFAULT) [address] [place] [address] Interpretation and review of laboratory results Normal [facility] Phosphate [Mass/Vol] 3.3 mg/dL 2.2 - 4 .6 mg/dL [facility] POC ARTERIAL BLOOD GASon Base excess Calc (Bld) [Moles/Vol] -2.1000 mmol/L -3.0 - 3.0 mmol/L [facility] Calcium.ionized (Bld) [Mass/Vol] 4.22 mg/dL Low 4.60 - 5.30 mg/dL [facility] CO2 (Bld) [Partial pressure] 33 mm[Hg] [facility] Glucose [Mass/Vol] 127 mg/dL High 70 - 99 mg/dL [facility] HCO3 (Bld) [Moles/Vol] 22 mmol/L 22 - 28 mmol/L [facility] Hematocrit (Bld) [Volume fraction] 34.5 % 34.2 - 45.6 % [facility] Hemoglobin (Bld) [Mass/Vol] 11.3 g/dL Low 11.4 - 15.2 g/dL [facility] Interpretation and review of laboratory results Abnormal [facility] Lactate [Moles/Vol] 1.2 mmol/L 0.5 - 1. 6 mmol/L [facility] Oxygen (Bld) [Partial pressure] 230 mm[Hg] High [facility] Oxygen saturation in Blood 99 % [facility] pH (Bld) 7.42 [pH] 7.35 - 7.45 [facility] Potassium [Moles/Vol] 3.6 mmol/L 3.5 - 5.0 mmol/L [facility] Sodium [Moles/Vol] 137 mmol/L 135 - 145 mmol/L [facility] Specimen source Nom (Unsp spec) Arterial [facility] Test performed at address of the patient encounter. [facility] Base excess Calc (Bld) [Moles/Vol] 0.0 mmol/L -3.0 - 3.0 mmol/L [facility] Calcium.ionized (Bld) [Mass/Vol] 4.56 mg/dL Low 4.60 - 5.30 mg/dL [facility] CO2 (Bld) [Partial pressure] 38 mm[Hg] [facility] Glucose [Mass/Vol] 138 mg/dL High 70 - 99 mg/dL [facility] HCO3 (Bld) [Moles/Vol] 24 mmol/L 22 - 28 mmol/L [facility] Hematocrit (Bld) [Volume fraction] 34.7 % 34.2 - 45.6 % [facility] Hemoglobin (Bld) [Mass/Vol] 11.3 g/dL Low 11.4 - 15.2 g/dL [facility] Interpretation and review of laboratory results Abnormal [facility] Oxygen (Bld) [Partial pressure] 197 mm[Hg] High [facility] Oxygen saturation in Blood 99 % [facility] pH (Bld) 7.42 [pH] 7.35 - 7.45 [facility] Potassium [Moles/Vol] 3.4 mmol/L Low 3.5 - 5.0 mmol/L [facility] Sodium [Moles/Vol] 138 mmol/L 135 - 145 mmol/L [facility] Specimen source Nom (Unsp spec) Arterial [facility] Test performed at address of the patient encounter. [facility] PREPARE TO TRANSFUSE OR RED BLOOD CELLSon 05-22-2022 UNIT NUMBER [id number] [facility] UNIT NUMBER [id number] [facility] PROTIME-INRon 05-22-2022 INR Coag (PPP) [Relative time] 1.2 {INR} High 0.9-1.1 [facility] Comment on above: Performed By: #### Dayday Santos, SHANEKAB, CHM7, MGO, HFP #### [facility] (DEFAULT) [address] [place] [address] PT Coag (PPP) [Time] 14.8 s High 11.9-14.2 [facility] Comment on above: Performed By: #### Dayday Santos, IPB, CHM7, MGO, HFP #### [facility] (DEFAULT) [address] [place] [address] INR Coag (Bld) [Relative time] 1.2 {INR} High 0.9 - 1.1 [facility] Interpretation and review of laboratory results Abnormal [facility] PT Coag (PPP) [Time] 14.8 s High [facility] SURG PATH REQUESTon 05-22-20 Case Report Normal [facility] Comment on above: Result Comment: Surg ical Pathology Report Case: [id number] Authorizing Provider: Suman Baker MD, PhD Collected: 05/22/2022 08:31 AM [facility] Received: 05/25/2022 08:10 AM [...] C RODRIGO Santos CHM7, MGO #### [facility] (DEFAULT) [address] [place] [address] Clinical History 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 Normal [facility] Comment on above: Performed By: #### C RODRIGO Santos, HUBERT, MGO #### [facility] (DEFAULT) [address] [place] [address] Gross Description Normal [facility] Comment on above: Result Comment: The specimens [...] and granular lesion Lab Use Only: JobID [id number] Lab Use Only: JobID [id number] (lmp) Grosser for this case was: Pedro Jacobsen For Immediate Release to Patient's [place] [employer] Hair[employer]? Yes Performed By: #### C A, IPBrett, CHARLIE7, MGO #### [facility] (DEFAULT) [address] [place] [address] Microscopic Description A microscopic examination was performed. Normal [facility] Comment on above: Performed By: #### C RORDIGO Santos, CHARLIE7, MGO #### [facility] (DEFAULT) [address] [place] [address] Pathologic Diagnosis Normal [facility] Comment on above: Result Comment: A. F [...] developed by and are performed at the [facility], [address] [place] [address], [address], [place] [address]. All tests reported here, except those addressing HER2 overexpression as a predictive marker, have not been cleared by or approved by the [place] Food and Drug Administration (FDA). The laboratory is regulated under CLIA as qualified to perform high-complexity testing. The tests are used for clinical purposes. They should not be regarded as investigational or for research. Performed By: #### C RODRIGO Santos, CHM7, MGO #### [facility] (DEFAULT) [address] [place] [address] TYPE AND SCREENon 05-22-2022 ABO/RH(D) TYPE Positive Normal [facility] Comment on above: Performed By: #### RODRIGO Rangel, CHM7, MGO #### [facility] (DEFAULT) [address] [place] [address] ABO/RH(D) TYPE Positive [facility] XR ABDOMEN 1 VIEWon 05-22-20 XR [...] the nasogastric tube in the stomach. Normal [facility] XR Abdomen Single viewon IMPRESSION: Appropriate position [...] is noted or visceromegaly. There are surgical kiek likely in the subcutaneous soft tissues to [...] of the nasogastric tube in the stomach. [facility] Radiology Study observation (narrative) [facility] Abdomen Single viewOrdere d By: Debora Burciaga on 05-22-2022 [facility] Work Phone: PREG HCG QUALon 04-08-2022 , QUAL Negative Normal NEGATIVE [facility] Comment on above: Performed By: #### P REG #### [facility] [address] [place], [place] [address] Dr. Esthela Stevens [facility]-19 SARS-CoV-2 (COVID-19) RNA JORGE LUIS+probe Ql (Unsp spec) Not detected Normal NOT DETECTED [facility] Comment on above: Result Comment: This test is not yet approved or cleared by the [place] FDA. When there are no FDA-approved or cleared tests available, and other criteria are met, FDA can make tests available under an emergency access mechanism called an Emergency Use Authorization (EUA). The EUA for this test is supported by the [employer] Consultant of Health and Human Service's (HHS's) declaration [...] By: #### L IVER, LDH, BMP #### [facility] [address] [place], [place] [address] Abdomen and Pelvis [...] error, please notify the sender immediately at [phone] and permanently delete the original report and [...] error, please notify the sender immediately at [phone] and permanently delete the original report and destroy any copies or printouts. [facility] CT Abdomen and Pelvis W cont rast IVOrdered By: Avinash Miller on 04-01-2022 [facility] CT Chest W contrast Jason IMPRESSION: [...] 1. No evidence for intrathoracic metastatic disease [facility] CT Chest W contrast IVOrdere d By: Yovany Bills on 03-31-2022 [facility] Work Phone: No Panel Informationon 03-31 Radiology Study observation (narrative) [facility] CBC AND ELECTRONIC DIFFon Basophils (Bld) [#/Vol] 0.05 10*3/uL 0.00 - 0.15 K/uL [facility] Basophils/100 WBC (Bld) 0.6 % [facility] Differential cell count method Nom (Bld) Electronic Differential [facility] Eosinophils (Bld) [#/Vol] 0.07 10*3/uL 0.00 - 0.42 K/uL [facility] Eosinophils/100 WBC (Bld) 0.8 % [facility] Erythrocyte distribution width (RBC) [Ratio] 13.4 % 10.8 - 14.9 % [facility] Hematocrit (Bld) [Volume fraction] 37.9 % 34.9 - 44.3 % [facility] Hemoglobin (Bld) [Mass/Vol] 11.9 g/dL 11.4 - 15.2 g/dL [facility] Immature granulocytes (Bld) [#/Vol] 0.04 10*3/uL <=0.08 [facility] Immature granulocytes/100 WBC (Bld) 0.5 % [facility] Interpretation and review of laboratory results Abnormal [facility] Lymphocytes (Bld) [#/Vol] 2.33 10*3/uL 1.16 - 3.51 K/uL [facility] Lymphocytes/100 WBC (Bld) 27.4 % [facility] MCH (RBC) [Entitic mass] 26.3 pg 25.9 - 33.9 pg [facility] MCHC (RBC) [Mass/Vol] 31.4 g/dL 31.4 - 35.9 g/dL [facility] MCV (RBC) [Entitic vol] 83.8 fL 79.6 - 97.7 fL [facility] Monocytes (Bld) [#/Vol] 0.46 10*3/uL 0.22 - 0.87 K/uL [facility] Monocytes/100 WBC (Bld) 5.4 % [facility] Neutrophils (Bld) [#/Vol] 5.55 10*3/uL 1.64 - 7.28 K/uL [facility] Nucleated RBC/100 WBC (Bld) [Ratio] 0.0 % <=0.2 /100 WBC [facility] Platelet mean volume (Bld) [Entitic vol] 10.0 fL 8.5 - 12.2 fL [facility] Platelets (Bld) [#/Vol] 402 10*3/uL High 150 - 393 K/uL [facility] RBC (Bld) [#/Vol] 4.52 10*6/uL [facility] Segmented neutrophils/100 WBC (Bld) 65.3 % [facility] WBC (Bld) [#/Vol] 8.50 10*3/uL 3.99 - 11. 19 K/uL [facility] COMPREHENSIVE METABOLIC PANE Shamir 03-19-2022 Albumin [Mass/Vol] 4.5 g/dL 3.5 - 5.0 g/dL [facility] ALP [Catalytic activity/Vol] 67 U/L 32 - 126 U/L [facility] ALT [Catalytic activity/Vol] 15 U/L 9 - 48 U/L [facility] Anion gap [Moles/Vol] 16 mmol/L 7 - 17 mmol/L [facility] AST [Catalytic activity/Vol] 14 U/L 10 - 39 U/L [facility] Bilirubin [Mass/Vol] 0.4 mg/dL <1.5 [facility] Calcium [Mass/Vol] 9.8 mg/dL 8.6 - 10. 5 mg/dL [facility] Chloride [Moles/Vol] 100 mmol/L 98 - 10 8 mmol/L [facility] CO2 [Moles/Vol] 27 mmol/L 21 - 31 mmol/L [facility] Creatinine [Mass/Vol] 0.66 mg/dL 0.50 - 1.20 mg/dL [facility] GFR/1.73 sq M.predicted CKD-EPI (S/P/Bld) [Vol rate/Area] >90 >=60 mL/min/1.73m2 [facility] Comment on above: Reported eGFR is bas ed on the CKD-EPI 2020 equation using creatinine, age, and sex. Glucose [Mass/Vol] 73 mg/dL 70 - 99 mg/dL [facility] Osmolality Calc [Osmolality] 287 [facility] Potassium [Moles/Vol] 3.6 mmol/L 3.5 - 5.0 mmol/L [facility] Protein [Mass/Vol] 7.4 g/dL 6.4 - 8.3 g/dL [facility] Sodium [Moles/Vol] 139 mmol/L 135 - 145 mmol/L [facility] Urea nitrogen [Mass/Vol] 10 mg/dL 7 - 25 mg/dL [facility] Urea nitrogen/Creatinine [Mass ratio] 15 mg/mg [facility] PT,INR,PTTon 03-19-2022 aPTT Coag (PPP) [Time] 36.5 s [facility] INR Coag (Bld) [Relative time] 1.2 {INR} [facility] Interpretation and review of laboratory results Abnormal [facility] PT Coag (PPP) [Time] 14.6 s [facility] CBC AUTO DIFFon 02-03-2022 BASO # 0.1 103/ul Normal 0.0-0.1 [facility] Comment on above: Performed By: #### L IVER, LDH, BMP #### [facility] [address] [address] [address] Esthela Stevens Basophils/100 WBC (Bld) 0.5 % Normal 0.2-2.0 [facility] Comment on above: Performed By: #### L IVER, LDH, BMP #### [facility] [address] [address] [address] Esthela Stevens EO # 0.1 103/ul Normal 0.0-0.7 [facility] Comment on above: Performed By: #### L IVER, LDH, BMP #### [facility] [address] [address] [address] Esthela Stevens Eosinophils/100 WBC (Bld) 1.2 % Normal 0.9-7.0 [facility] Comment on above: Performed By: #### L IVER, LDH, BMP #### [facility] [address] [address] [address] Esthela Stevens Erythrocyte distribution width (RBC) [Ratio] 13.2 % Normal 11.0-15.0 [facility] Comment on above: Performed By: #### L IVER, LDH, BMP #### [facility] [address] [place] [address] Dr. Esthela Stevens Hematocrit (Bld) [Volume fraction] 38.4 % Normal 36.0-48.0 [facility] Comment on above: Performed By: #### L IVER, LDH, BMP #### [facility] [address] [place] [address] Dr. Esthela Stevens Hemoglobin (Bld) [Mass/Vol] 12.2 g/dL Normal 12.0-16.0 [facility] Comment on above: Performed By: #### L IVER, LDH, BMP #### [facility] [address] [place] [address] Dr. Esthela Stevens IG # 0.06 10e3/ul Critically high 0.00-0.03 [facility] Comment on above: Performed By: #### L IVER, LDH, BMP #### [facility] [address] [place] [address] Dr. Esthela Stevens IG % 0.6 % Critically high 0.0-0.5 [facility] Comment on above: Performed By: #### L IVER, LDH, BMP #### [facility] [address] [place] [address] Dr. Eshtela Stevens LYMPH # 2.1 103/ul Normal 1.2-3.8 [facility] Comment on above: Performed By: #### L IVER, LDH, BMP #### [facility] [address] [place] [address] Dr. Esthela Stevens Lymphocytes/100 WBC (Bld) 21.7 % Normal 20.5-60.0 [facility] Comment on above: Performed By: #### L IVER, LDH, BMP #### [facility] [address] [place] [address] Dr. Esthela Stevens MANUAL DIFF REQ NO Normal [facility] Comment on above: Performed By: #### L IVER, LDH, BMP #### [facility] [address] [place] [address] Dr. Esthela Stevens MCH (RBC) [Entitic mass] 26.5 pg Critically low 26.7-34.0 [facility] Comment on above: Performed By: #### L IVER, LDH, BMP #### [facility] [address] [place] [address] Dr. Esthela Stevens MCHC (RBC) [Mass/Vol] 31.8 g/dL Normal 29.9-35.2 [facility] Comment on above: Performed By: #### L IVER, LDH, BMP #### [facility] [address] [place] [address] Dr. Esthela Stevens MCV (RBC) [Entitic vol] 83.5 fL Normal 81.0-99.0 [facility] Comment on above: Performed By: #### L IVER, LDH, BMP #### [facility] [address] [place] [address] Dr. Esthela Stevens MONO # 0.7 103/ul Normal 0.3-0.8 [facility] Comment on above: Performed By: #### L IVER, LDH, BMP #### [facility] [address] [place] [address] Dr. Esthela Stevens Monocytes/100 WBC (Bld) 7.5 % Normal 1.7-12.0 [facility] Comment on above: Performed By: #### L IVER, LDH, BMP #### [facility] [address] [place] [address] Dr. Esthela Stevens NEUT # 6.8 103/ul Critically high 1.4-6.5 [facility] Comment on above: Performed By: #### L IVER, LDH, BMP #### [facility] [address] [place] [address] Dr. Esthela Stevens Neutrophils/100 WBC (Bld) 68.5 % Normal 43.0-75.0 [facility] Comment on above: Performed By: #### L IVER, LDH, BMP #### [facility] [address] [place] [address] Dr. Esthela Stevens Platelet mean volume (Bld) [Entitic vol] 9.4 fL Critically low 9.5-13.5 [facility] Comment on above: Performed By: #### L IVER, LDH, BMP #### [facility] [address] [address] [address] Esthela Stevens PLT 403 103/ul Normal 150-450 [facility] Comment on above: Performed By: #### L IVER, LDH, BMP #### [facility] [address] [address] [address] Esthela Stevens RBC 4.60 106/ul Normal 4.20-5.40 [facility] Comment on above: Performed By: #### L IVER, LDH, BMP #### [facility] [address] [address] [address] Esthela Stevens WBC 9.9 103/ul Normal 4.0-11.0 [facility] Comment on above: Performed By: #### L IVER, LDH, BMP #### [facility] [address] [address] ABD/PELV W CONon [...] CAROLYN WALSH Date: 2022-02-03 12:14 Normal [facility]16 SARS-CoV-2 (COVID-19) RNA JORGE LUIS+probe Ql (Unsp spec) Not detected Normal NOT DETECTED [facility] Comment on above: Result Comment: [...] for this test is supported by the [employer] Consultant of Health and Human Service's declaration that [...] By: #### L IVER, LDH, BMP #### [facility] [address] [place] [address] Dr. Esthela Stevens ER URINE PROFILEon 2 Bilirubin Ql (U) Negative Normal NEGATIVE [facility] Comment on above: Performed By: #### E MAKENZIE SANCHEZ #### [facility] [address] [place] [address] Dr. Esthela Stevens Clarity (U) CLEAR Normal CLEAR [facility] Comment on above: Performed By: #### E MAKENZIE SANCHEZ #### [facility] [address] [place] [address] Dr. Esthela Stevens Color (U) LT. YELLOW Normal YELLOW [facility] Comment on above: Performed By: #### E LAURA UMICRO #### [facility] [address] [place] [address] Dr. Esthela ARGUELLES A micrscopic examination will be performed if indicated. Normal [facility] Comment on above: Performed By: #### Toñito SANCHEZ, UMICRO #### [facility] [address] [place] [address] Dr. Esthela Stevens Glucose Ql (U) Negative Normal NEGATIVE [facility] Comment on above: Performed By: #### E LAURA UMICRO #### [facility] [address] [place] [address] Dr. Esthela Stevens Hemoglobin Ql (U) Negative Normal NEGATIVE [facility] Comment on above: Performed By: #### Toñito SANCHEZ UMICRO #### [facility] [address] [place] [address] Dr. Esthela Stevens Ketones Ql (U) Negative Normal NEGATIVE [facility] Comment on above: Performed By: #### Toñito SANCHEZ UMICRO #### [facility] [address] [place] [address] Dr. Esthela Stevens LEUKOCYTES SMALL Abnormal NEGATIVE [facility] Comment on above: Performed By: #### Toñito SANCHEZ UMICRO #### [facility] [address] [place] [address] Dr. Esthela Stevens Nitrite Ql (U) Negative Normal NEGATIVE [facility] Comment on above: Performed By: #### Toñito SANCHEZ UMICRO #### [facility] [address] [place] [address] Dr. Esthela Stevens pH (U) 7.0 [pH] Normal 5-9 [facility] Comment on above: Performed By: #### Toñito SANCHEZ UMICRO #### [facility] [address] [place] [address] Dr. Esthela Stevens SPEC GRAVITY 1.015 Normal 1.005-<=1.025 [facility] Comment on above: Performed By: #### Toñito SANCHEZ UMICRO #### [facility] [address] [place] [address] Dr. Esthela Stevens UA PROTEIN Negative Normal NEGATIVE/ TRACE [facility] Comment on above: Performed By: #### MAKENZIE WALLACE #### [facility] [address] [place] [address] Dr. Esthela Stevens UR MICRO IND INDICATED Normal [facility] Comment on above: Performed By: #### ERUM WALLACERO #### [facility] [address] [place] [address] Dr. Esthela Stevens Urobilinogen Qn (U) 0.2 {Emeka'U}/dL Normal 0.2 - 1. 0 [facility] Comment on above: Performed By: #### ERUM WALLACERO #### [facility] [address] [place] [address] Dr. Esthela Stevens LACTATE/LACTIC ACIDon 2021 Lactate [Moles/Vol] 1.3 mmol/L Normal 0.4-1.9 [facility] Comment on above: Performed By: #### P REG #### [facility] [address] [place] [address] Dr. Esthela Stevens LIPASEon 02-03-2022 Lipase [Catalytic activity/Vol] 58.0 U/L Critically low 73.0-393.0 [facility] Comment on above: Performed By: #### L IPA, CMP #### [facility] [address] [place] [address] Dr. Esthela Stevens PREG HCG QUALon 02-03-2022 , QUAL Negative Normal NEGATIVE [facility] Comment on above: Performed By: #### L IVER, LDH, BMP #### [facility] [address] [place] [address] Dr. Esthela Stevens PROF 14(COMP METB)on 022 Albumin [Mass/Vol] 3.8 g/dL Normal 3.4-5.0 [facility] Comment on above: Performed By: #### L IPA, CMP #### [facility] [address] [place] [address] Dr. Esthela Stevens Albumin/Globulin [Mass ratio] 1.0 {ratio} Normal [facility] Comment on above: Performed By: #### L IPA, CMP #### [facility] [address] [place] [address] Dr. Esthela Stevens ALP [Catalytic activity/Vol] 75 U/L Normal 46-116 [facility] Comment on above: Performed By: #### L IPA, CMP #### [facility] [address] [place] [address] Dr. Esthela Stevens ALT [Catalytic activity/Vol] 37 U/L Normal 14-59 [facility] Comment on above: Performed By: #### L IPA, CMP #### [facility] [address] [place] [address] Dr. Esthela Stevens Anion gap [Moles/Vol] 14.0 mmol/L Normal [facility] Comment on above: Performed By: #### L IPA, CMP #### [facility] [address] [place] [address] Dr. Esthela Stevens AST [Catalytic activity/Vol] 14 U/L Critically low 15-37 [facility] Comment on above: Performed By: #### L IPA, CMP #### [facility] [address] [place] [address] Dr. Esthela Stevens Bilirubin [Mass/Vol] 0.2 mg/dL Normal 0.2-1.0 [facility] Comment on above: Performed By: #### L IPA, CMP #### [facility] [address] [place] [address] Dr. Esthela Stevens Calcium [Mass/Vol] 8.9 mg/dL Normal 8.5-10.1 [facility] Comment on above: Performed By: #### L IPA, CMP #### [facility] [address] [place] [address] Dr. Esthela Stevens Chloride [Moles/Vol] 103 mmol/L Normal 98-107 [facility] Comment on above: Performed By: #### L IPA, CMP #### [facility] [address] [place] [address] Dr. Esthela Stevens CO2 [Moles/Vol] 25.2 mmol/L Normal 21.0-32.0 [facility] Comment on above: Performed By: #### L IPA, CMP #### [facility] [address] [address] [address] Esthela Stevens Creatinine [Mass/Vol] 0.72 mg/dL Normal 0.55-1.02 [facility] Comment on above: Performed By: #### L IPA, CMP #### [facility] [address] [address] [address] Esthela Stevens EGFR-AF NICARAGUAN >60 Normal >=60 [facility] Comment on above: Performed By: #### L IPA, CMP #### [facility] [address] [address] [address] Esthela Stevens EGFR-NON AF NICARAGUAN >60 Normal >=60 [facility] Comment on above: Performed By: #### L IPA, CMP #### [facility] [address] [address] [address] Esthela Stevens Globulin (S) [Mass/Vol] 3.7 g/dL Normal [facility] Comment on above: Performed By: #### L IPA, CMP #### [facility] [address] [address] [address] Esthela Stevens Glucose [Mass/Vol] 101 mg/dL Normal 74-106 [facility] Comment on above: Performed By: #### L IPA, CMP #### [facility] [address] [address] [address] Esthela Stevens Potassium [Moles/Vol] 4.2 mmol/L Normal 3.5-5.1 [facility] Comment on above: Performed By: #### L IPA, CMP #### [facility] [address] [address] [address] Esthela Stevens Protein [Mass/Vol] 7.5 g/dL Normal 6.4-8.2 [facility] Comment on above: Performed By: #### L IPA, CMP #### [facility] [address] [address] [address] Esthela Stevens Sodium [Moles/Vol] 138 mmol/L Normal 136-145 [facility] Comment on above: Performed By: #### L IPA, CMP #### [facility] [address] [address] [address] Esthela Stevens Urea nitrogen [Mass/Vol] 11.0 mg/dL Normal 7.0-18.0 [facility] Comment on above: Performed By: #### L IPA, CMP #### [facility] [address] [address] [address] Esthela Stevens Urea nitrogen/Creatinine [Mass ratio] 15.3 mg/mg Normal [facility] Comment on above: Performed By: #### L IPA, CMP #### [facility] [address] [place] [address] Dr. Esthela Stevens URINE MICROSCOPIC ONLYon BACTERIA NONE SEEN Normal NONE SEEN [facility] Comment on above: Performed By: #### E RUR, UMICRO #### [facility] [address] [place] [address] Dr. Esthela Stevens Bacteria identified Cx Nom (U) NOT INDICATED Normal [facility] Comment on above: Performed By: #### E RUR, UMICRO #### [facility] [address] [place] [address] Dr. Esthela Stevens CAST NONE SEEN Normal NONE SEEN [facility] Comment on above: Performed By: #### E RUR, UMICRO #### [facility] [address] [place] [address] Dr. Esthela Stevens Crystals LM Nom (Urine sed) NONE SEEN Normal NONE SEEN [facility] Comment on above: Performed By: #### E RUR, UMICRO #### [facility] [address] [place] [address] Dr. Esthela Stevens Epithelial cells LM Ql (Urine sed) FEW Abnormal NONE SEEN /RARE [facility] Comment on above: Performed By: #### E RUR, UMICRO #### [facility] [address] [place] [address] Dr. Esthela Stevens MUCOUS NONE SEEN Normal NONE SEEN [facility] Comment on above: Performed By: #### E RUR, UMICRO #### [facility] [address] [address] [address] Esthela Stevens RBC 0-2 Normal 0-2 [facility] Comment on above: Performed By: #### E MAKENZIE SANCHEZ #### [facility] [address] [address] [address] Esthela Stevens WBC 2-5 Abnormal NONE SEEN [facility] Comment on above: Performed By: #### E MAKENZIE SANCHEZ #### [facility] [address] [address] [address] Esthela Stevens Test, Urineon Beta HCG ( test) Ql (U) Negative [employer] Other Urinalysis - AUTOMATEDon Appearance (U) clear [employer] Other Bilirubin Ql (U) Negative [employer] Other Color (U) yellow [employer] Other Glucose Ql (U) Negative [employer] Other Hemoglobin Ql (U) Negative [employer] Other Ketones Ql (U) 15 [employer] Other Leukocyte esterase Test strip Ql (U) Negative [employer] Other Nitrite Ql (U) Negative [employer] Other pH (U) 7.0 [pH] [employer] Other Protein Ql (U) Negative [employer] Other Specific gravity (U) [Rel density] 1.020 [employer] Other Urobilinogen (U) [Mass/Vol] 0.2 mg/dL [employer] Other Urinalysis - AUTOMATED [employer] Other Urine Cultureon 12-22-2021 Bacteria identified Cx Nom (U) >100,000 colonies/ml mixed bacterial skin contaminants 2 Days PERFORMED BY: [place] [id number] PATHOLOGIST APARTMENT LEASING AGENT FELY STODDARD M.D. [facility] Comment on above: Performed By: #### C UU #### [address] Coding Summary.on 02-18-2021 Coding Summary. CD:[id number] [id number]+PGhlYWQ+PE1FV CLbD25ffVUxtE0DS7bMC G2TEIQRDGBKBF2OWR8zu VN5QCypX6RtjxSi JvvjuPWxTM56UQa6TLF2 bLeaMMbpdV9awMIyY0h1 IaDbFI25vO87CKdzWVOv TnK5WzGwujijcFTl U3ooCwTeaAJgJzy+PHRh YmxlIHdpZHRoPScxMDAl XuZhdIudIT7rVv5oDTNi LWNvbGxhcHNlOiBj w1ohFRBnROcsVT2zfTkf H0LdnLB6WZSyw4y1Vi37 dHI+EDQzHSI1lTqyEGkl j997XbFpp6jjOAU8 uIElLGubIHO3A60gk5Q0 CYVnNBFeILM6dKU8zC2p gFtzvajjH8RndFNcNlL5 VKS5yHTbqZ3tkNnd zcrirF8cCgv+A44SLQ7C UKCKVT0SSkz8U0YqWzeq dHI+TX08ZURwHM31bWMo dBLsy8gqxIn7KhWc RXHhOZJ2yHlnCFuqt2Ag TCSsF70bnRWda4B3FDCf rKmxgUQbPxMwpWR2hP3v RTnywboci2wnngoj Acikf1lzso76kY55Q47p MTjmJRWnXYL9ZLXwZOTd wOcchr1brY0aJp9+IDxj f9rhi5tmkTi4XsWf SFVblxNsoByuPGR6k6We Dl62K2YyqYxmq1WqJks3 lt17bLUas4L0mDO5LHjw ZNUwhF1bKGmsPnV2 FUJnQtPkwR76zJEpJLox Os8ujZkadBrqBK5aNSOu zkyvMENeeM8tYJDhhGWl aQzfVV2dXWDtjvdt s097ZhSpQLN1MENblUZh Q7UucP9jNpWsZARdVLLf F4LfdZXvNXesX027EKvv OqA5CUQzxkDpV1Js RCIvqUanSyK3e6U7Do3H g9MdntiqAUU1KRlsGTT0 BoYiZzCpDvH4Z9EzLqk8 FHOshKvkBJ0kM9Bl SKCzlaigivanoTJ3KTRc CWQyaI04jDVuHTicUf5o b4F0c798PFKsHLHspA58 Iq7pgKgdXRTmiXNB rI3ghcmuf7vwmrjxTzSg MMLrMDh3KLl4JDQztKij CfBbVWR7WcE3NXC8bQWk yQ2edMzoyytacP2u Oyc+N09vxL4qKVR1JJO9 whhcGZYiviIvBM87UI23 M3RsHfiozAUemUJ+PGRp mfXpfDghCI4nCyDp r2xth5VcGOfiL4AkGLZh CIlyLli7BKBxFHI6tJI4 pG1nCYXzVSrty4A1lHN2 N4LmmsYcdi7qh5jh DJVoLOzlG10fvURno2I5 KTZtvPL2FQRopWdbCaXe hJ06Viq+NNXjwFhgz3Ml Fncnt2uxz8ejnEi3 IjMwJSIgdmFsaWduPSJ0 h8MrUt84T67lWEgiCXEb NAKoPQMfOMUzjNdngd2e jO7bCy3+PGNvbCB3 kXY8dB8mGFWdNtW8KAha B713KoSovEElSrfjj2yp q0ftaYx0VqIhVAMltgMq mOmgCEC2n2EoOl14 V94xOZfnWZFeBKHfJTKi NGKjdVfcog6erH9wDo1+ MP5bq0ihzm08pZ56uHA+ YDVeAQR4iQqpHTdb ZLHzcK8zSXffNlT8PIHr TkFkiJ99bHAvWRshFo4t cUhtqTuoHS7zFNUcczba t070AtUcd8xbPZXg kXLkXKuzTWI9R80in0L5 MMBiJXPxEIV7vFW2pP5v bGlnbjogbGVmdDsgdmVy vDiyPQbdIZtgN497 IHRvcDsnPlBhdGllbnQg PwUrRFi2J9SiPlk0SKQi fXfmUZ0vfAMvEEzvWp4d tUenqRgnAU8kJAWe nxpcg380UgGdf4xoWFDp uGOgUSzoKSF3B27rq3D5 EGBxSDDcUCX2vQL8lX9v bGlnbjogbGVmdDsg pvPehLrbXSbfESypU008 IHRvcDsnPkJpcnRoIERh pDQ9NK65VD56mGKwv6M1 eUS0H3BgZQPjjpyy vxxrnIX8JYRfPLUepU47 Rz3roJkrEg4sZROmVKR4 MMJeeMUzU9JwhR8eEbZb GJFiHVAqM8LdtPGh DMkfU374YEaoOgY6VTPi zlWlI0FfWDTnzZawXnB2 y8R9Xu4UT9K2NL04YH79 xACcc8I8oSM0T3Er XYLxkerrkezseHF1UDQg HLTwdY91Lo4rqDwiCc0y IPUmLSV0GWKeyFNoK4Em uO7gRjTcDRTmIZNd G4IjpIFdKVikM260AByt HuW6UUNjoxXxU6VhHYIe aXfiNsK7d6G3Px3VOKs3 QA25SG16nVEdb1I4 vIP0U9JzBWXabththcmb qQU9JKUrSISntP03Zi6u lWggTs1vGDEsHGD6EHIx kUNcM9PvkP4rQvIh KJUkKIAeC3WiiPUgBGrs J592HGgcSxA9FWXefuXh D4KrWVSdpIimUbK0k7A0 Nx8TISGoGA01OGF7 vNE0DS23VK59P0SmPnqo dGFibGU+PHRhYmxlIHdp ZHRoPScxMDAlJyBzdHls YT0jBc0gVIBqHEHw jPcfsSKzLgDau6mcDACm PBmkOU6tnTlhX6KovBZ9 XJRiv0h7Cf15M94aP5Ua dXA+WTHupKN3qFE1 iN1zCnDiYoY6JMrfA101 KvAomHKmZksno5drh3tz mOt1QgT9BJQzhoVnzAyh WSR6x4NwMh32R88x IHdpZHRoPSIxNSUiIHZh bSlera0kfU2hUf0+PGNv tUQ7qFN1lJ3rGwQnEyT7 MFkfP575ZmQrbVUj Jcatf3wfh6kupOr6SmBa AWQllkKmiUtkEJZ0o0Yb Tj29P1JptPopp5SxHdp9 ns15jARvd4D5cVK4 J6AbMXJvcieenDXjiGkp IA2yGGScaucmSWWriA1e QNAsZ0j1NjYrKvX5XHsl N2OdzuR4EYGdvDOb MImbJQQ2P65kv7S1MWIx CAKtWVI8lQM9dS0riUpz bjogbGVmdDsgdmVydGlj DExzNCqeL462LYVb cEdfZGMraA3wWDLnbSLz qJmpQQ4rFTOhuxfeOfgC EYrNMreaE7SDKJEBVXk0 N9UfWcj5EDMthLwv YN2rlBHlELneJv9ecMnm qLopZE8rLSFbpggjABUd tP2oPNVasWAlyJbuAO9i IJBarskdy622TzRt EUE5LCEweLFcI2VbyG4t HtCwNBZgTQXdQ1QjlDGp OZduZ814KAhwZaG4WIFn vwUwR3XuKCQiuEsg XpW9b9J5Aq0zZZ1tPQ5i MJt7BR08UY60fPHzy8G6 jAY0J4IdKXCljvqeolum xHE7AKPtCQQzsC66 cOZqMVgaWz4ge6R8m770 MPOrZRGwuJ45Km6hdMlp ITXeuZURqS2ljpwyl7rp cjogIzAwMDAwMDt0 DVl3FSSshLhyPaLhFEE9 XfV6MAA0cIKdbG4qkJgp rammjL6xFjs+MjMgWWVh kcN8P5KaQjo2MCFf wMnyAJ8viFFvDJqfCh5s uVlaiJmwKK2wZUIbvbzn TZHqeI4kIVXmySCqdKyb EO3lXSUtljcom246 YpVqTAG2LHJkkHCkH2Az oF0pVbPwIKMrPTWvA0Nu iLEiFRunS232MYsxFgZ2 RXFbtnGpK6BqRKFe tXvmSsJ6d0M3Tj8NXG5p fGH4L2WuUpl5MRGftRmx TV7naAMrBTksXw6ksWmi tBxeII3nQUJgectn GGKxxG4yHRNwxQDkpCxn HM1fONJukxvcs241LzIn YDI0HGWtpFQwZ8EpgV4s CcCnHHWbDXKxQ1Ak iRFyDOonV290CAfrKvO4 HVFbcmLjV9KbPRCepOuo UoW5k8E3Hf2EnRQrC7Cn S2u2Q7UzNsyepBQ+ CP12RHAyEF56hPKkkPNo a7kumBp1YmFxKZHcNJP3 yDnfFVmkf6WmXCLiU84t lGThj0U2HGWrpKfg rBPpBaTwkFC7aV5lOSjj nnupg3isyxlyVgmnz5ht po85uK46Y94lYUknTKFq PSIzMCUiIHZhbGln fw7pvW9oBb4+PGNvbCB3 jTA3qY0dJePtAmI2CJgn S786DbZbzNRlOfsfk1cv l3enePi9MlEdRHAv ksIhjKnpTOO6s9ZyRo79 S41qZSdqMDAlPDVkTYAp MKHbvLaksx0sjR5jDy1+ AU8ym0pcyv46zL13 dHI+XXEnFZT1gCkkYJgf OBDmeA6qHZvnErO2ZAJw LxQmsW75dBBuFPgaQa6s mEsrhItjAI4lIJKp ftpoy083KzNbk7xyTRPf jCIjYKzqQMU0S71wn2T0 URSrUVZwILN1zCZ7rT2x bGlnbjogbGVmdDsg ptXkbEfhNPsdYWwbO768 QPPpzWlnUkKhlUKiU3wg njXPZA0xZyfghWA+PHRk XTW6pDfaUApcODVa wZ3dKUPtT9u2KcNiSwO1 MHdtE5UabcS8LTKogQJs DLCicWHNpG7ozyzxf5wc cjogIzAwMDAwMDt0 LGu7UMIdoDhtYzCkFWB0 CmU1TYM7lSAmpQ6ifYaw pzyixW0nJpw+RklOOjwv dGQ+OFXwNJA6kKsz QVloUOTnkC8xGAOkQ6v6 VtSqSjK3ETmnP2JktcC8 QUJmqJHxOHVrlVZPuU3y pdihb5uuxoxyKzIl RZUlTMq6MFq8NQSdoFkx HzMiXQE0FxJ8YSC3lCIe xA9goDodzvbeaT0zPzd+ TVJOOjwvdGQ+PHRk AJE6jEfzCZpyZQSbdO6z IMGpB6o8QgDyWsC3DQwc F7GoaxR4NDHvyKJnTXZm dZPCeH7zqufwb3at mdowNpSiTXXpHQm5UBa4 YFExcRreDzLxFLB6VgJ7 XHP8wJJoqL1pgOlyhlav yJ5mLac+OAQ4ILL8 XO51WK01Y0ChKmhmhWGk bGU+PHRhYmxlIHdpZHRo KBiqIAQdCcHbbHnqTZ5v Ty2cMERzHQAunOuj cHNl (more content not included)... Normal [facility] Consent for Treatmenton Consent for Treatment [id number] #1.00CD:127 Normal [facility] Discharge Instructionson Discharge Instructions [id number] 3#1.00CD:127 Normal [facility] ED Clinical Summaryon 2020 ED Clinical Summary [place] [id number] ED Clinical Summary Person Information Name: ZAINAB MCCLURE Johanna/[facility] Age: 25 Years : 1995 Sex: Female Language: Armenian PCP: ERIN SAMS CNP Marital Status: Single [...] 02/17/2021 11:52:53 02/17/2021 11:52:53 02/17/2021 11:52:53 ADDRESS: [address] [place] [address] [phone] PHYS DOC NOTES: MEDICAL INFORMATION: Prescriptions Given: New Medications Printed Prescriptions lorazepam (Ativan 1 mg Tab) 1 Tablets By Mouth every 8 hours for 2 Days. Take one by mouth every eight hours as needed. Refills: 0. PATIENT EDUCATION INFORMATION: Instructions: Suicidal Feelings: How to Help Yourself; Managing Anxiety, Adult Follow up: With: Address: When: [facility] In 1 day 02/18/2021 With: Address: When: ERIN SAMS [address] [place] [address] [phone] Business (1) In 3 days DIAGNOSIS: Anxiety; Suicidal ideation Normal [facility] ED Note-Physicianon 02-18-20 ED Note-Physician Basic Information [...] Oral, q8hr Follow-up With When Contact Information [facility] In 1 day 02/18/2021 EDT Additional Instructions: ERIN SAMS In 3 days [address] [place] [address] [phone] Business (1) Additional Instructions: Patient Education Suicidal Feelings: How to Help Yourself Managing Anxiety, Adult Problem List/Past Medical History Ongoing No qualifying data Historical No qualifying data Medications Inpatient No active inpatient medications Home No active home medications Allergies No Known Medication Allergies Lab Results No qualifying data available. Diagnostic Results No qualifying data available. Normal [facility] Comment on above: Result Comment: Elec tronically [...] services (911 in the [place] ? [facility] and human services helpline (211 in the [place] ? Go to your nearest emergency department. ? Call a suicide hotline to speak with a trained counselor. The following suicide hotlines are available in the [place]: ? 2-540-842-TALK ( ). ? 7-493-KCSRJXA ( ). ? . This is a hotline for Croatian speakers. ? . This is a hotline for TTY users. ? 8-241-1-U-RAMILA ( ). This is a hotline for lesbian, escobar, bisexual, transgender, or questioning youth. ? For a list of hotlines in [place], visit www.suicide.org/hotl zeferino/international/c hprkd-elapmmp-dhqmjx es.html ? Contact a crisis center or [...] even if you do not feel sociable. Ovau-an-lxrj conversation is best to help them understand [...] can help you feel better. ? Take oapq-fsw-ocknvpj and prescription medicines only as told by [...] Lifeline: www.suicidepreventio nlifeline.org ? Hopeline: www.hopeline.com ? [place] [employer] for Suicide Prevention: www.afsp.org ? The Ramila Project (for lesbian, escobar, bisexual, transgender, or questioning youth): www.thetrevorproject .org Contact a health care provider if: ? You feel as though you are a burden to others. ? You feel agitated, angry, vengeful, or have extreme mood swings. ? You have withdrawn from family and friends. Get (more content not included)... Normal [facility] ED Patient Summaryon 021 ED Patient Summary [address] [address] Patient Discharge Instructions Person Information Name: ZAINAB MCCLURE Age: 25 Years Arrival Date: 02/17/2021 09:42:11 Discharge Diagnosis: Anxiety; Suicidal ideation Primary Care Physician: ERIN SAMS CNP Provider Information Primary Provider: Vinicius Childers DO Advanced Foundation Assistant:None The exam and treatment you received in the Emergency Department were for an urgent problem and are not intended as complete care. It is important that you follow up with a doctor, nurse practitioner, or physician?s merchandising assistant for ongoing care. If your symptoms become worse or you do not improve as expected and you are unable to reach your usual health care provider, you should return to the Emergency Department. We are available 24 hours a day. ZAINAB MCCLURE has been given the following list of patient education materials, prescriptions and follow-up instructions: Follow-up Instructions: With: Address: When: [facility] In 1 day 02/18/2021 With: Address: When: ERIN SAMS [address] [place] [address] [phone] Business (1) In 3 days In the [...] opioids can be used to help relieve fzclyuew-ps-hnpwbv pain and are often prescribed following a [...] health care professio (more content not included)... [facility] Valuables Checkliston 2020 Valuables Checklist [id number] 6#1.00CD:127 [facility] Vital Signs Date Time Vital Sign Value Performing Clinician Facility 08-24-2023 10:09-0500 Body mass index (BMI) [Ratio] 32.44 kg/m2 Ron Alden DO Work Phone: [facility] 08-24-2023 10:09-0500 [facility] 08-24-2023 10:09-0500 Diastolic blood pressure 68 mm[Hg] [facility] 08-24-2023 10:09-0500 Systolic blood pressure 110 mm[Hg] [facility] 03-11-2023 09:53-0400 Body height 154.9 cm Farshad Vigil APRN-STATION MECHANIC Work Phone: [facility] 12-10-2022 12:07-0400 Body height 155.2 cm Suman Baker MD, PhD Work Phone: [facility] Comment on above: without shoes 12-10-2022 12:07-0400 Body mass index (BMI) [Ratio] 30.64 kg/m2 Suman Baker MD, PhD Work Phone: [facility] 05-25-2023 12:07-0400 Body temperature 97.81 [degF] Suman Baker MD, PhD Work Phone: [facility] 12-10-2022 12:07-0400 Body weight 73.8 kg Suman Baker MD, PhD Work Phone: [facility] Comment on above: without shoes 12-10-2022 12:07-0400 Diastolic blood pressure 72 mm[Hg] Suman Baker MD, PhD Work Phone: [facility] 12-10-2022 12:07-0400 Heart rate 77 /min Suman Baker MD, PhD Work Phone: [facility] 12-10-2022 12:07-0400 Respiratory rate 14 /min Suman Baker MD, PhD Work Phone: [facility] 12-10-2022 12:07-0400 SaO2% (BldA) [Mass fraction] 99 % Suman Baker MD, PhD Work Phone: [facility] Comment on above: room air 12-10-2022 12:07-0400 Systolic blood pressure 118 mm[Hg] Suman Baker MD, PhD Work Phone: [facility] 10-22-2022 13:57-0400 Body height 154.9 cm Chayo Suero MD Work Phone: [facility] 10-22-2022 13:57-0400 Body mass index (BMI) [Ratio] 30.33 kg/m2 Chayo Suero MD Work Phone: [facility] 10-22-2022 13:57-0400 Body temperature 97.59 [degF] Chayo Suero MD Work Phone: [facility] 10-22-2022 13:57-0400 Body weight 72.8 kg Chayo Suero MD Work Phone: [facility] 10-22-2022 13:57-0400 Diastolic blood pressure 62 mm[Hg] Chayo Suero MD Work Phone: [facility] 10-22-2022 13:57-0400 Heart rate 62 /min Chayo Suero MD Work Phone: [facility] 10-22-2022 13:57-0400 Respiratory rate 20 /min Chayo Suero MD Work Phone: [facility] 10-22-2022 13:57-0400 SaO2% (BldA) [Mass fraction] 99 % Chayo Suero MD Work Phone: [facility] 10-22-2022 13:57-0400 Systolic blood pressure 119 mm[Hg] Chayo Suero MD Work Phone: [facility] 10-22-2022 10:19-0400 Body height 157.5 cm Yudelka Moralez ASSISTANT PROFESSOR OF BIOLOGY-STATION MECHANIC Work Phone: [facility] 10-22-2022 10:19-0400 Body mass index (BMI) [Ratio] 28.66 kg/m2 Yudelka Moralez ASSISTANT PROFESSOR OF BIOLOGY-STATION MECHANIC Work Phone: [facility] 10-22-2022 10:19-0400 Body weight 71.1 kg Yudelka Moralez ASSISTANT PROFESSOR OF BIOLOGY-STATION MECHANIC Work Phone: [facility] 10-22-2022 10:19-0400 Diastolic blood pressure 76 mm[Hg] Yudelka Moralez ASSISTANT PROFESSOR OF BIOLOGY-STATION MECHANIC Work Phone: [facility] 10-22-2022 10:19-0400 Systolic blood pressure 126 mm[Hg] Yudelka Moralez ASSISTANT PROFESSOR OF BIOLOGY-STATION MECHANIC Work Phone: [facility] 10-22-2022 07:38-0400 Body height 157.5 cm Yudelka Moralez ASSISTANT PROFESSOR OF BIOLOGY-STATION MECHANIC Work Phone: [facility] 10-22-2022 07:38-0400 Diastolic blood pressure 76 mm[Hg] Yudelka Moralez ASSISTANT PROFESSOR OF BIOLOGY-STATION MECHANIC Work Phone: [facility] 10-22-2022 07:38-0400 Heart rate 73 /min Yudelka Moralez ASSISTANT PROFESSOR OF BIOLOGY-STATION MECHANIC Work Phone: [facility] 10-22-2022 07:38-0400 Systolic blood pressure 126 mm[Hg] Yudelka Moralez ASSISTANT PROFESSOR OF BIOLOGY-STATION MECHANIC Work Phone: [facility] 10-07-2022 11:05-0400 Body height 157.5 cm Yudelka Moralez ASSISTANT PROFESSOR OF BIOLOGY-STATION MECHANIC Work Phone: [facility] 10-07-2022 11:05-0400 Body mass index (BMI) [Ratio] 28.66 kg/m2 Yudelka Moralez ASSISTANT PROFESSOR OF BIOLOGY-STATION MECHANIC Work Phone: [facility] 10-07-2022 11:05-0400 Body temperature 98.2 [degF] Yudelka Moralez ASSISTANT PROFESSOR OF BIOLOGY-STATION MECHANIC Work Phone: [facility] 10-07-2022 11:05-0400 Body weight 71.08 kg Yudelka Moralez ASSISTANT PROFESSOR OF BIOLOGY-STATION MECHANIC Work Phone: [facility] 10-07-2022 11:05-0400 Diastolic blood pressure 74 mm[Hg] Yudelka Moralez ASSISTANT PROFESSOR OF BIOLOGY-STATION MECHANIC Work Phone: [facility] 10-07-2022 11:05-0400 Heart rate 81 /min Yudelka Moralez ASSISTANT PROFESSOR OF BIOLOGY-STATION MECHANIC Work Phone: [facility] 10-07-2022 11:05-0400 Respiratory rate 16 /min Yudelka Moralez ASSISTANT PROFESSOR OF BIOLOGY-STATION MECHANIC Work Phone: [facility] 10-07-2022 11:05-0400 SaO2% (BldA) [Mass fraction] 99 % Yudelka Moralez ASSISTANT PROFESSOR OF BIOLOGY-STATION MECHANIC Work Phone: [facility] 10-07-2022 11:05-0400 Systolic blood pressure 120 mm[Hg] Yudelka Moralez ASSISTANT PROFESSOR OF BIOLOGY-STATION MECHANIC Work Phone: [facility] 08-19-2022 15:43-0500 Diastolic blood pressure 88 mm[Hg] Andreas Ortega MD, MPH Work Phone: 6(885)721-179670 [place] [address] 08-19-2022 15:43-0500 Systolic blood pressure 117 mm[Hg] Andreas Ortega MD, MPH Work Phone: 4(699)202-363070 [place] [address] 07-08-2022 07:50-0500 Body height 157.5 cm Andreas Ortega MD, MPH Work Phone: 4(992)926-988470 [place] [address] 07-08-2022 07:50-0500 Body mass index (BMI) [Ratio] 28.73 kg/m2 Andreas Ortega MD, MPH Work Phone: 0(125)992-161970 [place] [address] 07-08-2022 07:50-0500 Body temperature 98.01 [degF] Andreas Ortega MD, MPH Work Phone: 3(393)772-926270 [place] [address] 07-08-2022 07:50-0500 Body weight 71.26 kg Andreas Ortega MD, MPH Work Phone: 2(829)529-091570 [place] [address] 07-08-2022 07:50-0500 Diastolic blood pressure 77 mm[Hg] Andreas Ortega MD, MPH Work Phone: 2(908)264-709570 [place] [address] 07-08-2022 07:50-0500 Heart rate 73 /min Andreas Ortega MD, MPH Work Phone: 6(638)051-937070 [place] [address] 07-08-2022 07:50-0500 Respiratory rate 16 /min Andreas Ortega MD, MPH Work Phone: 0(325)171-743970 [place] [address] 07-08-2022 07:50-0500 SaO2% (BldA) [Mass fraction] 98 % Andreas Ortega MD, MPH Work Phone: 5(206)203-519270 [place] [address] 07-08-2022 07:50-0500 Systolic blood pressure 121 mm[Hg] Andreas Ortega MD, MPH Work Phone: [facility] 06-09-2022 13:10-0500 Body mass index (BMI) [Ratio] 29.3 kg/m2 [facility] Work Phone: [facility] 06-09-2022 13:10-0500 Body temperature 98.6 [degF] [facility] Work [facility]: [facility] 06-09-2022 13:10-0500 Body weight 72.67 kg Count includes the [facility] Work Phone: [facility] 06-09-2022 13:10-0500 Diastolic blood pressure 60 mm[Hg] Count includes the [facility] Work Phone: [facility] 06-09-2022 13:10-0500 Heart rate 80 /min [facility] Work [facility]: [facility] 06-09-2022 13:10-0500 Respiratory rate 16 /min Count includes the [facility] Work Phone: [facility] 06-09-2022 13:10-0500 SaO2% (BldA) [Mass fraction] 98 % Count includes the [facility] Work Phone: [facility] 06-09-2022 13:10-0500 Systolic blood pressure 110 mm[Hg] [facility] Work [facility]: [facility] 05-29-2022 07:32-0500 Body temperature 98.01 [degF] Suman Baker MD, PhD Work Phone: [facility] 05-29-2022 07:32-0500 Diastolic blood pressure 64 mm[Hg] Suman Baker MD, PhD Work Phone: [facility] 05-29-2022 07:32-0500 Heart rate 77 /min Suman Baker MD, PhD Work Phone: [facility] 05-29-2022 07:32-0500 Respiratory rate 16 /min Smuan Baker MD, PhD Work Phone: [facility] 05-29-2022 07:32-0500 SaO2% (BldA) [Mass fraction] 99 % Suman Baker MD, PhD Work Phone: [facility] 05-29-2022 07:32-0500 Systolic blood pressure 100 mm[Hg] Suman Baker MD, PhD Work Phone: [facility] 05-22-2022 15:50-0400 Body height 157.5 cm Suman Baker MD, PhD Work Phone: [facility] 05-22-2022 15:50-0400 Body mass index (BMI) [Ratio] 30.73 kg/m2 Suman Baker MD, PhD Work Phone: [facility] 05-22-2022 15:50-0400 Body weight 76.2 kg Suman Baker MD, PhD Work Phone: [facility] 03-31-2022 12:02-0400 Diastolic blood pressure 70 mm[Hg] [facility] ASSISTANT PROFESSOR OF BIOLOGYSTATION MECHANIC Work Phone: 0(187)[phone] [place] [address] 03-31-2022 12:02-0400 Systolic blood pressure 124 mm[Hg] [facility] ASSISTANT PROFESSOR OF BIOLOGY-STATION MECHANIC Work Phone: 5(421)[phone] [place] [address] 03-31-2022 11:53-0400 Body height 157.5 cm [facility] Work Phone: 0(842)144-835096 [place] [address] 03-19-2022 15:37-0400 Body height 158.3 cm Suman Baker MD, PhD Work Phone: [facility] 03-19-2022 15:37-0400 Body mass index (BMI) [Ratio] 30.63 kg/m2 Suman Baker MD, PhD Work Phone: [facility] 03-19-2022 15:37-0400 Body temperature 97.5 [degF] Suman Baker MD, PhD Work Phone: [facility] 03-19-2022 15:37-0400 Body weight 76.75 kg Suman Baker MD, PhD Work Phone: [facility] 03-19-2022 15:37-0400 Diastolic blood pressure 84 mm[Hg] Suman Baker MD, PhD Work Phone: [facility] 03-19-2022 15:37-0400 Heart rate 90 /min Suman Baker MD, PhD Work Phone: [facility] 03-19-2022 15:37-0400 Respiratory rate 16 /min Suman Baker MD, PhD Work Phone: [facility] 03-19-2022 15:37-0400 SaO2% (BldA) [Mass fraction] 98 % Suman Baker MD, PhD Work Phone: [facility] 03-19-2022 15:37-0400 Systolic blood pressure 128 mm[Hg] Suman Baker MD, PhD Work Phone: [facility] 12-22-2021 18:05-0400 Body height 152.4 cm Ava Tamika Other [employer] Other 12-22-2021 18:05-0400 Body mass index (BMI) [Ratio] 30.62 kg/m2 Ava Tamika Other [employer] Other 12-22-2021 18:05-0400 Body temperature 99 [degF] Ava Tamika Other [employer] Other 12-22-2021 18:05-0400 Body weight 71.12 kg Ava Lundberg Other [employer] Other 12-22-2021 18:05-0400 Diastolic blood pressure 89 mm[Hg] Ava Lundberg Other [employer] Other 12-22-2021 18:05-0400 Respiratory rate 16 /min Ava Lundberg Other [employer] Other 12-22-2021 18:05-0400 SaO2% (BldA) [Mass fraction] 99 % Ava Lundberg Other [employer] Other 12-22-2021 18:05-0400 Systolic blood pressure 129 mm[Hg] Ava Lundberg Other [employer] Other Encounters Encounter Date Encounter Type Care Provider Facility Start: 09-20-2023 End: 09-20-2023 ambulatory RON ALDEN Not Available Start: 09-13-2023 End: 09-13-2023 ambulatory RON ALDEN Not Available Start: 09-06-2023 End: 09-06-2023 ambulatory RON ALDEN Not Available Start: 08-24-2023 End: 08-24-2023 ambulatory RON ALDEN Not Available Start: 08-24-2023 End: 08-24-2023 flow sheet Ron Alden DO Work Phone: [facility] Comment on above: Third trimester preg lavonne Start: 08-09-2023 End: 08-09-2023 ambulatory LIZBET CAST Not Available Start: 07-14-2023 End: 07-14-2023 ambulatory RON ALDEN Not Available Start: 06-01-2023 End: 06-01-2023 ambulatory RON ALDEN Not Available Start: 04-06-2023 ambulatory ERIN Huynh y:[facility] Start: 03-17-2023 ambulatory ERIN SAMS Facilit y:[facility] Start: 03-11-2023 ambulatory ERIN SAMS Facilit y:[facility] Start: 03-11-2023 End: 03-11-2023 Clinical Support Encounter Suman Baker MD, PhD Work Phone: [facility] 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 Start: 03-11-2023 ambulatory ERIN SAMS Facilit y:[facility] Start: 03-11-2023 End: 03-11-2023 Subsequent hospital visit by physician Farshad Vigil ASSISTANT PROFESSOR OF BIOLOGY-STATION MECHANIC Work Phone: [facility] Comment on above: Arrived Start: 01-04-2023 ambulatory ERIN SAMS [facility] [facility] Start: 12-16-2022 ambulatory ERIN SAMS Facility: [facility] Start: 12-10-2022 End: 12-10-2022 Office outpatient visit 15 minutes Suman Baker MD, PhD Work Phone: Division of Surgical Oncology 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) Start: 12-10-2022 ambulatory CARLOS Kelly SMITHTOREY Facility :[facility] Start: 11-30-2022 End: 11-30-2022 ambulatory ERIN SAMS Facility: Start: 10-27-2022 ambulatory CHEIKHLISA COELHO Facility :[facility] Start: 10-27-2022 ambulatory ERIN STONER Facility :[facility] Start: 10-22-2022 ambulatory ANDREAS JORDAN Facility: [facility] Start: 10-22-2022 End: 10-22-2022 Office outpatient new 60 minutes Chayo Suero MD Work Phone: [facility] Comment on above: Fibromyalgia muscle pain (Primary Dx) Start: 10-22-2022 ambulatory YUDELKA MORALEZ Facility:[facility] Start: 10-22-2022 End: 10-22-2022 Subsequent hospital visit by physician Yudelka Moralez ASSISTANT PROFESSOR OF BIOLOGY-STATION MECHANIC Work Phone: [facility] [place] Start: 10-22-2022 ambulatory YUDELKA MORALEZ Facility:[facility] Start: 10-22-2022 End: 10-22-2022 Subsequent hospital visit by physician Yudelka Moralez ASSISTANT PROFESSOR OF BIOLOGY-STATION MECHANIC Work Phone: [facility] [place] Comment on above: Arrived Start: 10-21-2022 ambulatory YUDELKA MORALEZ Facility:[facility] Start: 10-07-2022 ambulatory ANDREAS ORTEGA Facility: [facility] Start: 10-07-2022 End: 10-07-2022 Office outpatient visit 25 minutes Yudelka Moralez ASSISTANT PROFESSOR OF BIOLOGY-STATION MECHANIC Work Phone: Division of Medical Oncology Comment [...] examination without abnormal findings ERIN SAMS [facility] Start: 08-31-2022 End: 09-01-2022 ambulatory ERIN SAMS Facility:[facility] Start: 08-31-2022 End: 09-01-2022 Encounter for general adult medical examination without abnormal findings ERIN SAMS Facility:[facility] Start: 08-26-2022 ambulatory ANDREAS ORTEGA Facility: [facility] Start: 08-24-2022 End: 08-25-[address] DOCTOR GREGORY Facility:[facility] Start: 08-19-2022 ambulatory ANDREAS ORTEGA Facility: [facility] Start: 08-19-2022 End: 08-19-2022 Subsequent hospital visit by physician Andreas Ortega MD, MPH Work Phone: Department of Radiology Comment on above: Arrived Start: 02-01-2023 ambulatory YUDELKA MORALEZ Facility:[facility] Start: 08-19-2022 End: 08-19-2022 Subsequent hospital visit by physician Yudelka Moralez ASSISTANT PROFESSOR OF BIOLOGY-STATION MECHANIC Work Phone: Imaging [facility] Comment on above: Arrived Start: 08-12-2022 End: 08-12-2022 ambulatory ERIN LATRELL Facility:[facility] Start: 08-05-2022 End: 08-05-2022 ambulatory ERIN LATRELL Facility:[facility] Start: 07-08-2022 ambulatory SELF SELF Facility:[facility] Start: 07-08-2022 End: 07-08-2022 Office consultation new/estab patient 80 min Andreas Ortega MD, MPH Work Phone: Division of Medical Oncology 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) Start: 07-06-2022 ambulatory SELF SELF Facility:[facility] Start: 06-09-2022 ambulatory SELF SELF Facility:[facility] Start: 06-09-2022 End: 06-09-2022 Postop follow up visit related to original px Carlos Mendoza Eliseo ASSISTANT PROFESSOR OF BIOLOGY-STATION MECHANIC Work Phone: Division of Surgical Oncology 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 Facility:[facility] Start: 04-06-2022 Encounter for preprocedural laboratory examination DR TIMMY HALL . [facility] Start: 04-04-2022 End: 04-05-2022 ambulatory ERIN SAMS Facility:[facility] Start: 04-04-2022 End: 04-05-2022 Encounter for preprocedural laboratory examination ERIN SAMS Facility:[facility] Start: 03-31-2022 End: 03-31-2022 Subsequent hospital visit by physician Carlos Gomes ASSISTANT PROFESSOR OF BIOLOGY-STATION MECHANIC Work Phone: [facility] [place] Comment on above: Arrived Start: 03-19-2022 End: [...] 12-22-2021 End: 12-22-2021 ambulatory Ava Lundberg Other [employer] Other Start: 12-22-2021 Office outpatient vi sit 15 minutes Ava Lundberg [facility] Procedures Date Procedure Procedure Detail Performing Clinician Start: 03-11-2023 Mri abdomen w/o cont rast material Yudelka Moralez ASSISTANT PROFESSOR OF BIOLOGY-STATION MECHANIC Work Phone: Start: 10-22-2022 Echo tthrc r-t 2d w/wom-mode compl spec&colr d Yudelka Moralez ASSISTANT PROFESSOR OF BIOLOGY-STATION MECHANIC Work Phone: Start: 10-22-2022 Ct soft tissue neck w/contrast material Yudelka Moralez ASSISTANT PROFESSOR OF BIOLOGY-STATION MECHANIC Work Phone: Start: 10-22-2022 Ct thorax w/contrast material Yudelka Moralez ASSISTANT PROFESSOR OF BIOLOGY-STATION MECHANIC Work Phone: Start: 10-07-2022 Natriuretic peptide Yudelka Moralez ASSISTANT PROFESSOR OF BIOLOGY-STATION MECHANIC Work Phone: Start: 08-19-2022 Creatinine blood Bhgaro Ortega MD, MPH Work Phone: Start: 08-19-[address] atten uation skull base mid-thigh Yudelka Moralez ASSISTANT PROFESSOR OF BIOLOGY-STATION MECHANIC Work Phone: Start: 05-29-2022 Assay of magnesium Dwaine Arnold MD Work Phone: Start: 05-28-2022 Assay of magnesium Dwaine Arnold MD Work Phone: Start: 05-27-2022 Assay of magnesium Tal[place] vannessa Arnold MD Work Phone: Start: 05-26-2022 Assay of magnesium Dwaine Arnold MD Work Phone: Start: 05-25-2022 Assay of magnesium [place] vannessa Arnold MD Work Phone: Start: 05-24-2022 Assay [...] Phone: Comment on above: Performed By: #### Dayday Santos, IPBrett, CHM7, MGO #### [facility] (DEFAULT) [address] [place] [address] Start: 05-22-2022 Calcium ionized Suman Baker MD, [...] 03-31-2022 Ct thorax w/contrast material Carlos Gomes ASSISTANT PROFESSOR OF BIOLOGY-STATION MECHANIC Work Phone: Start: 03-19-2022 CBC AND ELECTRONIC DIFF Carlos Gomes ASSISTANT PROFESSOR OF BIOLOGY-STATION MECHANIC Work Phone: Start: 03-19-2022 Complete blood count with white cell differential, automated Carlos Gomes ASSISTANT PROFESSOR OF BIOLOGY-STATION MECHANIC Work Phone: Start: 03-19-2022 Comprehensive metabo lic panel Carlos Gomes ASSISTANT PROFESSOR OF BIOLOGY-STATION MECHANIC Work Phone: Plan of Treatment Date Care Activity Detail Author Start: 10-28-2023 End: 10-28-2023 Patient encounter procedure 10/28/2023 1:00 PM EDT Office Visit [facility] [place] [address] [place] [address] Deborah Eli, Kelton Mari MD [address] [place] [id number] [facility] [place] Start: 09-08-2023 End: 09-08-2023 Patient encounter procedure 09/08/2023 10:40 AM EST Routine [facility] [address] [place] [phone] AldenRon, [address] [facility] [place] [address] [facility] Start: 06-17-2023 End: 06-17-2023 Patient encounter procedure 06/17/2023 1:30 PM EST Office Visit Division of Surgical Oncology [address] [place] [phone] Suman Baker MD, PhD [address] [place] [phone] Division of Surgical Oncology Start: 06-17-2023 End: 06-17-2023 Patient encounter procedure 06/17/2023 12:20 PM EST Appointment Imaging [facility] [address] [facility] [address] [place] [phone] Suman Baker MD, PhD [address] [place] [phone] Imaging [facility] Start: 03-19-2023 Influenza vaccination [facility] Start: 03-17-2023 End: 03-17-2023 Patient encounter procedure Division of Medical Oncology Start: 03-11-2023 End: 03-11-2023 Patient encounter procedure 03/11/2023 Office Visit Surgical Oncology Suman Baker MD, PhD [address] [place] [phone] Division of Surgical Oncology Start: 03-11-2023 End: 03-11-2023 Patient encounter procedure Imaging Outpatient [facility] Start: 12-22-2022 End: 12-22-2022 Patient encounter procedure 12/22/2022 Office Visit Cardiovascular Medicine Marisela Velásquez, ASSISTANT PROFESSOR OF BIOLOGY-STATION MECHANIC [address] [place] [address] Cardiology [facility] 5 Start: 12-17-2022 End: 12-17-2022 Patient encounter procedure 12/17/2022 Office Visit Oncology Andreas Ortega MD, MPH [address] [phone] Division of Medical Oncology Start: 12-10-2022 End: 12-11-2023 CT Abdomen and Pelvis W contrast IV CT ABDOMEN/PELVIS WITH CONTRAST Imaging Routine Primary malignant neuroendocrine tumor of appendix Expected: 12/10/2022, Expires: 12/11/2023 [facility] Comment on above: Expected: 12/10/2022, Expires: 4 Start: 12-10-2022 End: 12-11-2023 CT Chest W contrast IV CT CHEST WITH CONTRAST Imaging Routine Primary malignant neuroendocrine tumor of appendix Expected: 12/10/2022, Expires: 12/11/2023 [facility] Comment on above: Expected: 12/10/2022, Expires: 4 Start: 12-10-2022 End: 12-10-2022 Patient encounter procedure [facility] Start: 12-07-2022 End: 06-09-2023 CT Abdomen and Pelvis W contrast IV CT ABDOMEN/PELVIS WITH CONTRAST Imaging Routine Primary malignant neuroendocrine tumor of appendix Expected: 12/07/2022, Expires: 06/09/2023 [facility] Comment on above: Expected: 12/07/2022, Expires: 3 Start: 11-05-2022 End: 11-05-2022 Patient encounter procedure 11/05/2022 Office Visit Oncology Andreas Ortega MD, MPH [address] [phone] Division of Medical Oncology Start: 10-27-2022 End: 10-27-2022 Patient encounter procedure 10/27/2022 Office Visit Cardiovascular Medicine Cheikh Coelho MD [address] [place] [address] [facility] Start: 10-27-2022 End: 10-27-2022 ambulatory 10/27/2022 Telemed Clin Support Genetics Herbie Erin Scott, [facility] [address] [place] [address] Division of Human Genetics Start: 10-21-2022 Subsequent hospital visit by physician 10/21/2022 Hospital Encounter Computerized Tomography Scan Yudelka Moralez, ASSISTANT PROFESSOR OF BIOLOGY-STATION MECHANIC [address] [place] [address] [facility] [place] Start: 10-21-2022 End: 10-21-2022 Patient encounter procedure 10/21/2022 Appointment Echocardiography Yudelka Moralez ASSISTANT PROFESSOR OF BIOLOGY-STATION MECHANIC [address] [place] [address] [facility] [place] Start: 10-07-2022 End: 10-08-2023 CT Chest W contrast IV CT CHEST WITH CONTRAST Imaging Routine Carcinoid syndrome SOB (shortness of breath) Tachycardia Primary malignant neuroendocrine tumor of appendix Expected: 10/07/2022, Expires: 10/08/2023 [facility] Comment on above: Expected: 10/07/2022, Expires: 4 Start: 10-07-2022 End: 10-08-2023 CT Neck W contrast IV CT NECK WITH CONTRAST Imaging Routine Primary malignant neuroendocrine tumor of appendix Expected: 10/07/2022, Expires: 10/08/2023 [facility] Comment on above: Expected: 10/07/2022, Expires: 4 Start: 08-26-2022 End: 08-26-2022 Telemedicine consultation with patient 08/26/2022 Telemedicine Oncology Andreas Ortega MD, MPH [address] [place] [address] Division of Medical Oncology Start: 08-19-2022 End: 08-19-2022 Patient encounter procedure Imaging [facility] Start: 07-08-2022 End: 07-08-2023 Complete blood count with white cell differential, automated CBC, EDIF, PLATELET Lab Routine Primary malignant neuroendocrine tumor of appendix Expected: 07/08/2022, Expires: 07/08/2023 [facility] Comment on above: Expected: 07/08/2022, Expires: 3 Start: 07-08-2022 End: 07-08-2023 Comprehensive metabolic 2000 panel - Serum or Plasma COMPREHENSIVE METABOLIC PANEL Lab Routine Primary malignant neuroendocrine tumor of appendix Expected: 07/08/2022, Expires: 07/08/2023 [facility] Comment on above: Expected: 07/08/2022, Expires: 3 Start: 07-08-2022 End: 07-08-2023 CT Abdomen and Pelvis WO and W contrast IV CT ABDOMEN/PELVIS WITH AND WITHOUT CONTRAST Imaging Routine Primary malignant neuroendocrine tumor of appendix Expected: 07/08/2022, Expires: 07/08/2023 [facility] Comment on above: Expected: 07/08/2022, Expires: 3 Start: 07-08-2022 End: 07-08-2023 Lactate dehydrogenase [Enzymatic activity/volume] in Serum or Plasma LACTATE DEHYDROGENASE Lab Routine Primary malignant neuroendocrine tumor of appendix Expected: 07/08/2022, Expires: 07/08/2023 [facility] Comment on above: Expected: 07/08/2022, Expires: 3 Start: 07-08-2022 End: 07-08-2023 PT Skull base to mid-thigh NUC PET NEUROENDOCRINE Imaging Routine Primary malignant neuroendocrine tumor of appendix Expected: 07/08/2022, Expires: 07/08/2023 [facility] Comment on above: Expected: 07/08/2022, Expires: 3 Start: 07-08-2022 End: 07-08-2022 Patient encounter procedure 07/08/2022 Office Visit Oncology Andreas Ortega MD, MPH [address] [phone] Division of Medical Oncology Start: 07-06-2022 End: 07-06-2022 Telemedicine consultation with patient 07/06/2022 Telemedicine Surgical Oncology Carlos Gomes, ASSISTANT PROFESSOR OF BIOLOGY-STATION MECHANIC [address] [place] [address] [facility] Start: 06-09-2022 End: 06-09-2022 Patient encounter procedure 06/09/2022 Office Visit Surgical Oncology Carlos Gomes, ASSISTANT PROFESSOR OF BIOLOGY-STATION MECHANIC [address] [place] [address] Division of Surgical Oncology Start: 04-21-2022 End: 04-21-2022 Evaluation and management of inpatient 04/21/2022 Surgery Multispecialty Suman Baker MD, PhD [address] [place] [address] COLECTOMY PARTIAL LAPAROSCOPIC CCCT PERIOP Comment on above: COLECTOMY PARTIAL LAPAROSCOPIC Start: 04-21-2022 End: 04-21-2022 Laparoscopy colectomy partial w/anastomosis COLECTOMY PARTIAL LAPAROSCOPIC Primary malignant neuroendocrine tumor of appendix 04/21/2022 7:15 AM EDT [facility] Start: 04-21-2022 Evaluation and management of inpatient 04/21/2022 Hospital Encounter Multispecialty Suman Baker MD, PhD [address] [place] [phone] Primary malignant neuroendocrine tumor of appendix [facility] PER[facility]OP Comment on above: Primary malignant neuroendocrine tumor o f appendix Start: 03-19-2022 End: 03-19-2023 Colonoscopy flx dx w/collj spec when pfrmd DIAGNOSTIC COLONOSCOPY GI/Bronch STAT Primary malignant neuroendocrine tumor of appendix Expected: 03/19/2022, Expires: 03/19/2023 [facility] Comment on above: Expected: 03/19/2022, Expires: Start: 03-19-2022 Influenza vaccination INFLUENZA VACCINE (#1) [facility] Start: 03-19-2022 End: 03-19-2023 TYPE AND SCREEN - PREADMISSION TYPE AND SCREEN - PREADMISSION Blood Bank Routine Primary malignant neuroendocrine tumor of appendix Expected: 03/19/2022, Expires: 03/19/2023 [facility] Work Phone: Comment on above: Expected: 03/19/2022, Expires: 3 Start: 07-10-2021 COVID-19 VACCINE (2 - Pfizer risk series) COVID-19 VACCINE (2 - Pfizer risk series) [facility] Start: 07-10-2021 COVID-19 VACCINE (2 - Pfizer series) COVID-19 VACCINE (2 - Pfizer series) [facility] Start: 08-14-2020 Tetanus vaccination TETANUS [facility] Start: 2018 Screening for malignant neoplasm of cervix CERVICAL CANCER SCREENING DISCUSSION [facility] Start: 2016 Third diphtheria, tetanus and acellular pertussis (DTaP) vaccination TDAP (ADULT) [facility] Start: 2016 Zoster vaccine hzv live for subcutaneous use ZOSTER (SHINGLES) VACCINE (1 of 2) [facility] Start: 2015 Tetanus vaccination TETANUS [facility] Start: 2013 Screening for Chlamydia trachomatis CHLAMYDIA SCREEN [facility] Start: 2012 HIV screening HIV SCREENING DISCUSSION [facility] Start: 02-11-2011 Vaccination for human papillomavirus HPV VACCINE ADOL (2 - 2-dose series) [facility] Start: 09-11-2010 Vaccination for human papillomavirus HPV VACCINE ADOL (2 - Risk 3-dose series) [facility] Start: 2008 Vaccination for human papillomavirus HPV VACCINE ADOL (1 - 2-dose series) [facility] Start: 2003 PNEUMOCOCCAL VACCINE SERIES (1 - PCV) PNEUMOCOCCAL VACCINE SERIES (1 - PCV) [facility] Start: 1997 GONORRHEA SCREEN GONORRHEA SCREEN [facility] Start: 1997 Hepatitis C antibody, confirmatory test HEPATITIS C VIRUS SCREENING [facility] Start: 1997 Hepatitis C screening HEPATITIS C VIRUS SCREENING [facility] Start: 1997 Screening for Chlamydia trachomatis GONORRHEA SCREEN [facility] CHROMOGRANIN A CHROMOGRANIN A L ab Routine Primary malignant neuroendocrine tumor of appendix 03/11/2023 11:44 AM EDT [facility] Work Phone: End: 03-31-2022 CT Abdomen and Pelvis W contrast IV [facility] Work Phone: Comment on above: 1 Occurrences starting 03/31/2022 until 03/31/2022 End: 08-14-2022 CT Abdomen and Pelvis WO and W contrast IV [facility] Work Phone: Comment on above: 1 Occurrences starting 08/14/2022 until 08/14/2022 Ecg routine ecg w/le ast 12 lds trcg only w/o i&r NM ECG, TRACING ONLY NM - OFFICE PERFORMED Routine Primary malignant neuroendocrine tumor of appendix Ordered: 03/19/2022 [facility] Comment on above: Ordered: 03/19/2022 Echocardiography ECHOCARDIOGRAM Echocardiography Routine Carcinoid syndrome SOB (shortness of breath) Tachycardia Ordered: 10/07/2022 [facility] Comment on above: Ordered: 10/07/2022 Laparoscopy colectom y partial w/anastomosis COLECTOMY PARTIAL LAPAROSCOPIC Primary malignant neuroendocrine tumor of appendix [facility] End: 03-09-2023 Magnetic resonance imaging of abdomen and pelvis with contrast MRI ABDOMEN/PELVIS WITHOUT AND WITH CONTRAST Imaging Routine Primary malignant neuroendocrine tumor of appendix 1 Occurrences starting 03/09/2023 until 03/09/2023 [facility] Comment on above: 1 Occurrences starting 03/09/2023 until 03/09/2023 Removal of kike NM STAPLE REM OVAL NM - OFFICE PERFORMED Routine Primary malignant neuroendocrine tumor of appendix Ordered: 06/09/2022 [facility] Comment on above: Ordered: 06/09/2022 SURG PATH REQUEST [facility] Comment on above: Release Upon Ordering for 1 Occurrences starting 05/22/2022, 1 completed Immunizations Immunization Date Immunization Notes Care Provider Chhaya dhillon 04-28-2021 influenza virus vaccine, unspecified formulation Carlos Eliseo GONZALEZN-STATION MECHANIC Work Phone: [facility] Payers Date Payer Category Payer Unknown [id number] 2021 Managed Care HMO (unspecified) [employer] HMO PAR[employer] HMO [id number] 2021-Present [address] [place] [address] HMO [id number] 2021 Unknown [employer] NELIDA [employer] PREFERRED PPO [id number] 2021-Present [phone] [address] [place] [address] PPO [id number] 1997 Unknown [id number] 2.16.840.1.231130.3.579.2 .593 1997 Unknown [id number] 2.16.840.1.429625.3.579.2 .593 1997 Unknown [id number] 2.16.840.1.411768.3.579.2 .593 1997 Unknown [id number] 2.16.840.1.057631.3.579.2 .593 1997 Unknown [id number] 2.16.840.1.003543.3.579.2 .593 1997 Unknown [id number] 2.16.840.1.237236.3.579.2 .593 1997 Unknown [id number] 2.16.840.1.831559.3.579.2 .593 1997 Unknown [id number] 2.16.840.1.221921.3.579.2 .593 1997 Unknown [id number] 2.16.840.1.763177.3.579.2 .593 1997 Unknown [id number] 2.16.840.1.700376.3.579.2 .593 1997 Unknown [id number] 2.16.840.1.297759.3.579.2 .593 1997 Unknown [id number] 2.16.840.1.895595.3.579.2 .593 1997 Unknown [id number] 2.16.840.1.768719.3.579.2 .593 1997 Unknown [id number] 2.16.840.1.989853.3.579.2 .593 1997 Unknown [id number] 2.16.840.1.481123.3.579.2 .593 1997 Unknown [id number] 2.16.840.1.026106.3.579.2 .593 1997 Unknown [id number] 2.16.840.1.147537.3.579.2 .593 1997 Unknown [id number] 2.16.840.1.281255.3.579.2 .594 1997 Unknown [id number] 2.16.840.1.438600.3.579.2 .594 1997 Unknown [id number] 2.16.840.1.734237.3.579.2 .594 1997 Unknown [id number] 2.16.840.1.726017.3.579.2 .594 1997 Unknown [id number] 2.16.840.1.272251.3.579.2 .594 1997 Unknown [id number] 2.16.840.1.582843.3.579.2 .594 1997 Unknown [id number] 2.16.840.1.726349.3.579.2 .594 1997 Unknown [id number] 2.16.840.1.506764.3.579.2 .594 1997 Unknown [id number] 2.16.840.1.508605.3.579.2 .594 1997 Unknown [id number] 2.16.840.1.767848.3.579.2 .594 1997 Unknown [id number] 2.16.840.1.053674.3.579.2 .594 1997 Unknown [id number] 2.16.840.1.916882.3.579.2 .594 1997 Unknown [id number] 2.16.840.1.249495.3.579.2 .594 1997 Unknown [id number] 2.16840.1.407262.3.579.2 .594 1997 Unknown [id number] 2.16.840.1.626151.3.579.2 .594 1997 Unknown [id number] 2.16.840.1.650883.3.579.2 .594 1997 Unknown [id number] 2.16.840.1.330268.3.579.2 .594 1997 Unknown [id number] 2.16840.1.799276.3.579.2 .594 1997 Unknown [id number] 2.16.840.1.065634.3.579.2 .594 1997 Unknown [id number] 2.16.840.1.899738.3.579.2 .594 1997 Unknown [id number] 2.16.840.1.876107.3.579.2 .594 1997 Unknown [id number] 2.16.840.1.174409.3.579.2 .594 1997 Unknown [id number] 2.16.840.1.284138.3.579.2 .594 1997 Unknown [id number] 2.16.840.1.440676.3.579.2 .594 1997 Unknown [id number] 2.16.840.1.317430.3.579.2 .594 1997 Unknown [id number] 2.16.840.1.520044.3.579.2 .594 1997 Unknown [id number] 2.16.840.1.135902.3.579.2 .594 1997 Unknown [id number] 2.16.840.1.645944.3.579.2 .594 1997 Unknown [id number] 2.16.840.1.437965.3.579.2 .1259 1997 Unknown [id number] 2.16.840.1.536293.3.579.2 .1259 1997 Unknown [id number] 2.16.840.1.489458.3.579.2 .1259 1997 Unknown [id number] 2.16.840.1.274784.3.579.2 .1259 1997 Unknown [id number] 2.16.840.1.944820.3.579.2 .1259 1997 Unknown [id number] 2.16.840.1.895119.3.579.2 .1259 1997 Unknown [id number] 2.16.840.1.006147.3.579.2 .1259 1959 Unknown [id number] Unknown [id number] 2.16.840.1.258090.19 Social History Date Type Detail Facility Unknown if ever smoked [employer] Other Start: 12-16-2022 End: 03-11-2023 Sex Assigned At [facility] Tobacco smoking stat [facility] Tobacco smoking consumption unknown [facility] Work Phone: Start: 1997 Sex Assigned At Not on file [facility] Start: 03-19-2022 End: 04-14-2022 Tobacco smoking status NHIS Never smoked tobacco [facility] Start: 03-31-2022 End: 03-11-2023 Alcohol intake Ex-drinker (finding) [facility] Start: 03-19-2022 History SDOH Alcohol Comment last alchohol 2019; mixed drink rarely [facility] Start: 04-14-2022 Tobacco use and exposure Smokeless tobacco non-user [facility] Start: 05-12-2022 End: 08-19-2022 Exposure to SARS-CoV-2 (event) Not sure [facility] Start: 06-28-2022 End: 07-08-2022 Exposure to SARS-CoV-2 (event) Unable to assess [facility] Start: 12-16-2022 End: 03-11-2023 History of Social function [facility] Adolescent depressio n screening assessment 1 [facility] Start: 01-12-2023 [facility] Start: 1995 Sex Assigned At Female [facility] Start: 01-25-2023 Gender identity Identifies as female gender (finding) [facility] Start: 01-25-2023 Sexual orientation Heterosexual (finding) [facility] Healthcare Goals Date Patient Goal Desired Activity /State Personal health goal Clinical Notes 12-22-2021 to 08-24-2023 DO Galina Riggins 08/24/2023 10:10 AM Kailey Blunt [facility] - 12/10/2022 12:30 PM Malathi Vigil [facility] - 12/10/2022 12:30 PM EDTPatient InstructionsPatient InstructionsAttachments Note [...] nursing note reviewed. Exam conducted with a cloud physicist present. Vitals: Estimated body mass index is [...] Ron Ruano DO documented in this encounter [facility] 12-10-2022 History of Present illness Narrative Chief Complaint: Chief Complaint Patient presents with Follow-up HPI: Zainab Swift is a 27 y.o. female who presents to [facility] for post-operative visit [...] (Patient not taking: Reported on 07/06/2022) Pancrelipase, Smx-Yvcd-Tkfg, (Creon) [id number] units Cap DR Particles Take two caps [...] Chief Complaint Patient presents with Follow-up HPI: Zaniab Swift is a 27 y.o. female who presents to [facility] for post-operative visit [...] (Patient not taking: Reported on 07/06/2022) Pancrelipase, Csn-Jtjy-Lndm, (Creon) 32250-902538 units Cap DR Particles Take two caps [...] interviewed and examined this patient with the RESUME SPECIALIST/fellow/resident. I reviewed the history and exam detailed [...] months with repeat imaging. 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 Joint achy/flu like s/s, tachcardia, + HUNTER. Please evaluate and treat. Hunter positive. HISTORY OF PRESENT ILLNESS: Zainab wSift is a 27 y.o. female with a [...] ulcers, vision changes. 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 do everything on [...] Surgeon: Suman Baker MD, PhD; [facility] COLECTOMY PARTIAL OPEN Right 05/22/2022 Laterality: Right; Surgeon: Suman Baker MD, PhD; [facility] MA[facility] OR DEBULKING INTRA-ABDOMINAL/PELVIC/RETROPERIT FLEMING W/ OMENECTOMY & PELVIC PARA-AORTIC LYMPHADENECTOMY N/A 05/22/2022 Laterality: N/A; Surgeon: Suman Baker MD, PhD; Location: [facility] MAIN OR COLECTOMY PARTIAL LAPAROSCOPIC N/A 04/21/2022 Laterality: N/A; Surgeon: Suman Baker MD, PhD; [facility] COLONOSCOPY DIAGNOSTIC 04/08/2022 APPENDECTOMY LAPAROSCOPIC 02/03/2022 [place], [place] Family History Problem Relation Age of [...] Reported on 07/06/2022) 30 tablet 0 Pancrelipase, Vme-Ujoy-Iylz, (Creon) 15543-603997 units Cap DR Particles Take two caps [...] Chayo Suero MD documented in this encounter [facility] 10-22-2022 Instructions Chayo Suero MD - [...] Rub Alcohol hand rub, also called hand night cleaner, can be used instead of soap and [...] they are dry, atleast 20-30 seconds. [facility]. This handout is for informational purposes only. Talk with your doctor or healthcare team if you have any questions about your care. For more health information call the Library for Health Information at [phone] or email: [email or web address]. documented in this encounter [facility] 10-22-2022 History of Present illness Narrative Intravenous access obtained and remained for next appointment in cardioology at [facility]. 22 gauge IV in left ac. Dressing intact and/or coban used to secure access. Patient instructed to report directly to next appointment. documented in this encounter [facility] 10-07-2022 Note Acute Coronary Syndr ome (ACS): Initial Evaluation and Management: [email or web address] [facility] 10-07-2022 History of Present illness Narrative [...] able to do housework. 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 Eating [...] Reported on 07/06/2022) 30 tablet 0 Pancrelipase, Jvn-Zqlm-Vdjw, (Creon) 24840-978323 units Cap DR Particles Take two caps [...] OR COLONOSCOPY DIAGNOSTIC 04/08/2022 APPENDECTOMY LAPAROSCOPIC 02/03/2022 [place], [place] Past medical, surgical, family, and social [...] symptoms. MAMTA [facility] Ghulam G. [facility] and Mohamud [facility] To discuss with Dr. Ortega documented in this encounter [facility] 10-07-2022 Instructions Johana Lutz RN - [...] script to Zainab Thank you for choosing [facility] for your cancer care. FMLA/Disability forms: Please allow up to 2 weeks for the forms to be returned to you +++ should you need any FMLA, Short term disability or watermaster disability forms filled out please fax them to (f) [phone] ++++ Refill requests: Please allow 24-48 hours for a response My chart message response: PLEASE DO NOT SEND IN URGENT/EMERGENT MESSAGES VIA MY CHART. Please allow up to 24-48 hours for a response via my chart. Should you have questions or concerns, please call [phone] documented in this encounter [facility] 07-08-2022 History of Present illness Narrative [...] quickly and requires nap. 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 Better [...] OR COLONOSCOPY DIAGNOSTIC 04/08/2022 APPENDECTOMY LAPAROSCOPIC 02/03/2022 [place], [place] Social History Socioeconomic History Marital status: [...] recommendations. MAMTA [facility] and [facility] Addendum by Dr. Ortega: IAttending Addendum:I [...] She [facility] chest revealed a [...] and fatigue. ECOG PS 1. 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 1. Metastatic, well differentiated, grade [...] placebo groups was 14.3 and 6 months (p=[id number]), respectively. The CLARINET study, [which enrolled patients [...] 2. LAMN: Discussed with Dr. Vinicius Gomes/[facility] who recommended active surveillance. No role for adjuvant systemic therapy. Patient will continue to follow with Dr. Suman Baker. 3. Hx of NET in family: referral to genetics 4. Transaminitis: discontinue hepatotoxins/acetaminophen. Repeat LFTs at [facility]. documented in this encounter [facility] 07-08-2022 Instructions Yina Amaya RN - [...] Tylenol Cancel pathology-done documented in this encounter [facility] 06-09-2022 History of Present illness Narrative Chief Complaint: Chief Complaint Patient presents with Follow-up HPI: Zainab Swift is a 27 y.o. female who presents to [facility] for post-operative visit [...] status. MAMTA Carrion documented in this encounter [facility] 06-09-2022 Instructions Veronique Calvin RN - 06/09/2022 1:15 PM EST Tele health visit with Carlos Gomes CNP in 4 weeks on a Wednesday. Referral placed to neuroendocrine oncology. Return in [address] Baker with scans same day. documented in this encounter [facility] 05-29-2022 Note Formatting of this n [...] via wheelchair [facility] 1147. [facility] Miscellaneous Notes Patient and spouse [...] and assistance is needed, please page the medical office receptionist [facility] at [phone]. Patient did well overnight. Patient pain mostly being controlled with epidural, but scheduled medications controlling her mild to moderate breakthrough pain. Patient with steady gait and only needig needing stand-by assistance. Patient now with bowel function and feeling hungry. Patient hopefully to have diet started today. Patient was able to be up in walking with stand-by assistance from multiple times yesterday. 2123: [facility] paged: Rm [phone], Kryling: FYI pt states that she can't tolerate taking the olanzapine disintegrating tablet because of the NG. Thanks [id number] Q1 safety rounds completed. Patient pain controlled [...] Providers Updated In IHIS Yes Contact Information Outside Sales Engineer/SW Added to Care Team Yes This Geographic Information Systems Director is Primary Outside Sales Engineer/SW Yes (Antonio Jiang RN [facility] [phone]) Outside Sales Engineer Name Pinky Barcenas RN [facility] Outside Sales Engineer's Social Work Contact Name Bailey WILLAMS, [facility] Director Clinical Research's Living Environment Lives With spouse Living Arrangements [...] Education And Care For Discharge? Phill Swift [phone] Can Support Person Meet The Care Needs Of The Patient? 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 Employment/Financial Concerns no Source Of Income salary/wages Financial Concerns none Insurance Medical Insurance Verified Yes Prescription Coverage Yes Pharmacy updated in IS Yes Initial Discharge Planning Home Care Services (VISUAL EFFECTS EDITOR) No Home Therapies (VISUAL EFFECTS EDITOR) None DME (VISUAL EFFECTS EDITOR) None Medical Supplies (VISUAL EFFECTS EDITOR) None Patient Goal for Discharge Return home with assistance from family and friends Anticipated discharge disposition Home Anticipated Services at Discharge Outpatient follow up Anticipated Changes Related to Illness none Current Discharge Risk high risk diagnoses (i.e., CHF, Stroke, DM, chronic pain, abdominal pain, nausea and vomiting) Transportation Available car Home Care Services (VISUAL EFFECTS EDITOR) Additional Home Care Services (VISUAL EFFECTS EDITOR) no Assessment/Concerns to be Addressed Concerns To [...] Lines/Drains/Tubes Abdominal incision with dressing x 2 Hammond drain x 1-under distal dressing NG-low wall [...] Report called to Jevon EMERY on 12 [facility]. All questions answered. 1514: Patient discharged from [facility] PACU per protocol. Patient transported via gurney with side rails up x2 with HOB>30 degrees to room 1204 [facility] by Natalia EMERY and Dang LISA. Family called to patient's bedside. 1310: Patient arrives in [facility] PACU from OR via gurney with side rails up x2 with HOB >30 degrees, accompanied by Anesthesiologist: Vinicius Gupta DO; Chayo Benson MD Certified Bench Jeweler Technician: VIJAYA Gamboa; VIJAYA Lopez Distribution Lead Assisting: Richard Bradshaw MD Automotive Machinist: Wali Art. Patient placed on monitors, VSS. Report received from anesthesia. Patient assessed, see assessment. 1427: PACU labs and abdominal xray for NG placement cleared by Miguel Betancourt at this time. 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 JR drain placed in pelvis. 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 19 Fr drain in the pelvis coming out LLQ SURGEON Surgeon(s) and Role: * Suman Baker MD, PhD - Primary ANESTHESIOLOGIST Anesthesiologist: Vinicius Gupta DO; Chayo Benson MD Certified Bench Jeweler Technician: VIJAYA Gamboa; VIJAYA Lopez Distribution Lead Assisting: Richard Bradshaw MD Automotive Machinist: Wali Art SURGICAL STAFF Corporate Quality Engineer: Piedad Maki RN; Rima Medel RN Relief Corporate Quality Engineer: Suri Stockton RN Relief Scrub: Ghanshyam Townsend [...] 1:04 PM SURGEONS: Suman Baker MD, PhD ELECTRIC TRIPPER MACHINE OPERATOR SURGEON: Rodolfo Arnold MD PROCEDURE: - Exploratory [...] second timeout per standard procedure at the [facility]. We made a midline incision [...] sarmiento stapler device. Next, we began the lfjtkg-il-ngucyhe dissection to mobilize the colonic mesentery. We [...] filed. We then proceeded with creating a felb-du-ychs functional end-to-end anastomosis between the distal ileum [...] Will follow for teaching after ostomy created. 05/22/22606 General Pain Documentation (Adult, OB, Peds) Presence [...] Seen 05/22/22 documented in this encounter [facility] 05-29-2022 Hospital course Narrative Discharge Summary [...] of Surgical Oncology Arrive at: Ar[facility] to [facility] Registration [phone] documented in this encounter [facility] 05-28-2022 Note Formatting of this n [...] PCRM has updated the patient's nurse Tania RN regarding the final discharge plan. Risk of [...] and assistance is needed, please page the medical office receptionist [facility] at [phone]. [facility] 05-28-2022 History of Present illness Narrative [...] the care of Zainab Swift. Please page [phone] or call [phone] with any questions or concerns. Elroy Powell MD Acute Pain Service Senior Resident @ [phone] Subjective: Passing gas and having regular BMs. [...] control. Plan was discussed with Dr. Oanh Betancourt APRN-TASH B surgery G3 service [id number] Anesthesia Acute Pain Progress Note Zainab Swift [...] acute pain service at [phone] or call [phone] with any questions or concerns. Yann Burr [...] Plan was discussed with Dr. Oanh Colón, ASSISTANT PROFESSOR OF BIOLOGY-STATION MECHANIC [facility] surgery G3 service [phone] Psychosocial Assessment Per chart review, patient is a is a 27 y.o. 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 PMH: anxiety, borderline personality disorder, depression, GERD SW met with patient to introduce self, explain social work job titles role during inpatient stay, and answer patient questions. Patient was alert and oriented x4 and agreeable to SW visit. Information Source Information Source: patient , review of medical record, spouse Information Source Name: Arlette Swift Information Source Number: see demographics Contact Information Outside Sales Engineer Name: Pinky Smith RN PCRM Outside Sales Engineer's Social Work Contact Name: Bailey Quarles FINISH REMOVER GEOPHYSICAL ENGINEER Director Clinical Research's Living Environment Lives With: spouse Living Arrangements: house (one story house wiith 3 Steps to enter) Provides Primary Care For: no one Primary Care Provided By: spouse/significant other, self Support System: Immediate family Able to Return to Prior Arrangements: yes Employment/Financial Employed?: Yes 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 Health Insurance / Rx: [id number] [place] [address] [address] [facility] Anticipated Discharge Plan: Pt report she plans to return home with care and transportation provided by her . Medical Team Considerations: None SW Interventions/Recommendations: Service SW name and contact information placed on white board in patient's room to contact as needed. SW will continue to remain available to provide assistance and support as needed during inpatient stay. IMER Christina, GEOPHYSICAL ENGINEER [facility] and [facility] Director Clinical Research Pager: [phone] For Evening (4:30pm-8am) and Weekend SW needs please call [phone] or page [phone] Anesthesia Acute Pain Progress Note Zainab Swift [...] acute pain service at [phone] or call [phone] with any questions or concerns. Yann Burr [...] I/O last 3 completed shifts: In: 2196.7 [I.V.:1911; NG/GT:130; IV Piggyback:154.7] Out: 2265 [Urine:2000; Other:265] [...] with MAMTA Wisdom B surgery G3 service [id number] Anesthesia Acute Pain Progress Note Zainab Swift [...] regimen Please page acute pain service at [phone] or call [phone] with any questions or concerns. Yann Burr [...] interviewed and examined this patient with the RESUME SPECIALIST/fellow/resident. I reviewed the history and exam detailed in the note and have edited it as necessary. I agree with the medical decision making unless otherwise noted below. The patient is doing well. Her pain is well controlled. She is mildly distended on exam. We will continue NPO with NGT until return of bowel function. Suman Baker MD/PhD us administrative law judge Division of Surgical Oncology Department of Surgery [...] Plan was discussed with Dr. Oanh Colón, ASSISTANT PROFESSOR OF BIOLOGY-STATION MECHANIC [facility] surgery G3 service [id number] [facility] Surgery Note Subjective: Patient doing well [...] acute pain service at [phone] or call [phone] with any questions or concerns. Yann Burr [...] acute pain service at [phone] or call [phone] with any questions or concerns. Yann Burr [...] acute pain service at [phone] or call [phone] with any questions or concerns. Richard Bradshaw MD residential real estate sales manager [facility] documented in this encounter [facility] 05-27-2022 Note Formatting of this n [...] with stand-by assistance from multiple times yesterday. [facility] 05-26-2022 Consult note Formatting of th [...] 1: Location: forearm, anterior, right Device/Lot Number: [id number]-oeennb catheter system Gauge/Length: 1 3/4 in length;20 gauge Unsuccessful Insertion Attempts: 1 Unsuccessful Attempt Location/Site: Pain Prevention/Patient Tolerance: distraction;tolerated well;appears comfortable Removal: Additional Comments: placed by Carla Mccurdy RN Lumen 2: Lumen 3: Peripheral IV Present on Admission: (Retired/Read Only) Location: (Retired/Read Only) Device: (Retired/Read Only) Gauge/Length: Automatic Buffing Wheel Former/Lot Number: Unsuccessful Insertion Attempts: (Retired/Read Only) Unsuccessful [...] care of this patient. Vascular Access Team [id number] [facility] 05-26-2022 Consult note Formatting of th [...] 1: Location: forearm, anterior, right Device/Lot Number: [id number] catheter system Gauge/Length: 1 3/4 in length;20 gauge Unsuccessful Insertion Attempts: 1 Unsuccessful Attempt Location/Site: Pain Prevention/Patient Tolerance: distraction;tolerated well;appears comfortable Removal: Additional Comments: placed by Carla Mccurdy RN Lumen 2: Lumen 3: Peripheral IV Present on Admission: (Retired/Read Only) Location: (Retired/Read Only) Device: (Retired/Read Only) Gauge/Length: Automatic Buffing Wheel Former/Lot Number: Unsuccessful Insertion Attempts: (Retired/Read Only) Unsuccessful [...] care of this patient. Vascular Access Team [id number] documented in this encounter [facility] 05-25-2022 Note Formatting of this n ote might be different from the original. 2124: Juanito paged: Rm [phone], Kryling: FYI pt states that she can't tolerate taking the olanzapine disintegrating tablet because of the NG. Thanks [id number] [facility] 05-22[facility] Note Formatting of this n [...] outcomes by discharge/transition of care. Outcome: Ongoing [facility] 05-22-2022 Note Formatting of this n ote might be different from the original. I certify that this patient requires inpatient services at this time. I anticipate the expected length of stay will include at least two midnights. Inpatient services are due to the following medical concerns appendiceal NET. Plans for post hospitalization care will be discharge to home. [facility] 05-22-2022 Note Formatting of this n ote is different from the original. 05/22/22 1608 Referral Information Arrived From home or self-care;operating room Readmission Information Was patient readmitted within 30 Days? No Information Source Information Source patient Information Source Name Zainab Jamison-in person Information Source Number Demographics reviewed Outpatient Providers Outpatient Providers Updated In IHIS Yes Contact Information Outside Sales Engineer/SW Added to Care Team Yes This Geographic Information Systems Director is Primary Outside Sales Engineer/SW Yes (Antonio Jiang RN [facility] [phone]) Outside Sales Engineer Name Pinky Barcenas RN [facility] Outside Sales Engineer's Social Work Contact Name Bailey Magallanes MSW, [facility] Director Clinical Research's Living Environment Lives With spouse Living Arrangements [...] Education And Care For Discharge? Phill Swift [phone] Can Support Person Meet The Care Needs Of The Patient? 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 Employment/Financial Concerns no Source Of Income salary/wages Financial Concerns none Insurance Medical Insurance Verified Yes Prescription Coverage Yes Pharmacy updated in [facility] Yes Initial Discharge Planning Home Care Services (VISUAL EFFECTS EDITOR) No Home Therapies (VISUAL EFFECTS EDITOR) None DME (VISUAL EFFECTS EDITOR) None Medical Supplies (VISUAL EFFECTS EDITOR) None Patient Goal for Discharge Return home with assistance from family and friends Anticipated discharge disposition Home Anticipated Services at Discharge Outpatient follow up Anticipated Changes Related to Illness none Current Discharge Risk high risk diagnoses (i.e., CHF, Stroke, DM, chronic pain, abdominal pain, nausea and vomiting) Transportation Available car Home Care Services (VISUAL EFFECTS EDITOR) Additional Home Care Services (VISUAL EFFECTS EDITOR) no Assessment/Concerns to be Addressed Concerns To [...] Lines/Drains/Tubes Abdominal incision with dressing x 2 Hammond drain x 1-under distal dressing NG-low wall [...] and for discharge planning. Medical team updated. [facility] 05-22-2022 Note Formatting of this n ote might be different from the original. 1512: Report called to Jevon EMERY on 12 Isrrael. All questions answered. 1514: Patient discharged from [facility] PACU per protocol. Patient transported via gurney with side rails up x2 with HOB>30 degrees to room 1204 [facility] by Natalia EMERY and Dang LISA. Family called to patient's bedside. [facility] 05-22-2022 Note Formatting of this n ote might be different from the original. 1310: Patient arrives in [facility] PACU from OR via gurney with side rails up x2 with HOB >30 degrees, accompanied by Anesthesiologist: Vinicius Gupta DO; Chayo Benson MD Certified Bench Jeweler Technician: VIJAYA Gamboa; VIJAYA Lopez Distribution Lead Assisting: Richard Bradshaw MD Automotive Machinist: Wali Art. Patient placed on monitors, VSS. Report received from anesthesia. Patient assessed, see assessment. 1427: PACU labs and abdominal xray for NG placement cleared by Miguel Betancourt at this time. [facility] 05-22-2022 Note Formatting of this n ote is different from the original. 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 JR drain placed in pelvis. SURGEON Surgeon(s) and Role: * Suman Baker MD, PhD - Primary ANESTHESIOLOGIST Anesthesiologist: Vinicius Gupta DO; Chayo Benson MD Certified Bench Jeweler Technician: VIJAYA Gamboa; VIJAYA Lopez Distribution Lead Assisting: Richard Bradshaw MD Automotive Machinist: Wali Art SURGICAL STAFF Corporate Quality Engineer: Piedad Maki RN; Rima Medel RN Relief Corporate Quality Engineer: Suri Stockton RN Relief Scrub: [facility] Gu[facility] Scrub Person: Heidy Skelton; Tammy Lopez [...] SURG PATH REQUEST Suman Baker MD, PhD 05/22/2022901 5 : TERMINAL ILEUM AND COLON Permanent [...] Arnold MD May 22, 2022 1:06 PM [facility] Work Phone: 05-22-2022 Note Formatting of this n ote is different from the original. Zainab Swift ([id number]) PRE OPERATIVE DIAGNOSIS Primary malignant neuroendocrine tumor [...] Anesthesiologist: Vinicius Gupta DO; Chayo Benson MD Certified Bench Jeweler Technician: VIJAYA Gamboa; VIJAYA Lopez Distribution Lead Assisting: Richard Bradshaw MD Automotive Machinist: Wali Art SURGICAL STAFF Corporate Quality Engineer: Piedad Maki RN; Rima Medel RN Relief Corporate Quality Engineer: Suri Stockton RN Relief Scrub: Ghanshyam Townsend [...] Hong MD May 22, 2022 1:04 PM [facility] Work Phone: 05-22-2022 Note Formatting of this n ote is different from the original. SURGEONS: Suman Baker MD, PhD ELECTRIC TRIPPER MACHINE OPERATOR SURGEON: Rodolfo Arnold MD PROCEDURE: - Exploratory [...] second timeout per standard procedure at the [facility]. We made a midline incision [...] sarmiento stapler device. Next, we began the [id number]-gp-blkmpqh dissection to mobilize the colonic mesentery. We [...] filed. We then proceeded with creating a rffe-sz-ekpk functional end-to-end anastomosis between the distal ileum [...] participated for the entirety of the case. [facility] Work Phone: 05-22-2022 Nurse Surgical operation note 0815 Family notified of surgery start 1021, 121 Family updated 1228 Handoff report sent to PACU charge nurse 1255 PACU given notice of arrival 1309 Patient extubated and transported to PACU with anesthesia at bedside and on oxygen inhalation Rima Medel RN [facility] 05-22-2022 Nurse Note 0815 Family notified of surgery start 1021, 121 Family updated 1228 Handoff report sent to PACU charge nurse 1255 PACU given notice of arrival 1309 Patient extubated and transported to PACU with anesthesia at bedside and on oxygen inhalation Rima Medel RN documented in this encounter [facility] 05-22-2022 Note Formatting of this n [...] Visit Frequency Sat Last Date Seen 05/22/22 [facility] 05-22-2022 History and physical note Surgical [...] N/A; Surgeon: Suman Baker MD, PhD; [facility]AGNOSTIC 04/08/2022 APPENDECTOMY LAPAROSCOPIC 02/03/2022 [place], [place] Family History Family History Problem Relation [...] hours as instructed. 05/21/2022 04/23/22 Elsie Mason APRN-TASH Review of Systems Denies the following: Arrhythmias, [...] to the patient's satisfaction. Liza Cisneros PA-C [facility] 05-22-2022 History and physical note Surgical [...] N/A; Surgeon: Suman Baker MD, PhD; Location: [facility] MAIN OR COLONOSCOPY DIAGNOSTIC 04/08/2022 APPENDECTOMY LAPAROSCOPIC 02/03/2022 [place], [place] Family History Family History Problem Relation [...] 11am the day before surgery 05/21/2022 04/23/22 MAMTA Dickerson FLUoxetine 40 MG capsule 40 mg, Oral, [...] 2 hours as instructed. 05/21/2022 04/23/22 Elsie D Isabella, ASSISTANT PROFESSOR OF BIOLOGY-STATION MECHANIC Review of Systems Denies the following: Arrhythmias, [...] Liza Cisneros PA-C documented in this encounter [facility] 05-21-2022 Hospital Discharge instructions Pinky Be RN - 05/21/2022 10:38 AM EDT Contacts: Suman Baker MD Office Number: [phone] Option 1 During office hours, Wednesday through Wednesday, 8:00 AM to 4:30 PM, call the office if you have any questions or concerns. After hours, weekends and holidays call the office number and you will be transferred to the After Hours Nurse Line. Call 911 for Emergencies. Your geriatric case manager (PCRM) has arranged your appointments [...] pharmacist before using any other medicine, including bcqp-moz-gbbzoca medicines, vitamins, and herbal products. Avoid taking [...] and support, many resources are available. The [employer] Information Call to request information or check hours. The [facility] [employer]: or , www.[employer] [place] Care Classes: Kaeuferportal for Life, Integrative Care Monthly Classes The JamesXcelaero for Life Program offers a series of [...] families and friends. For more information, contact [facility] [employer] at or visit our website at www.[employer] Resources in [facility] include the following: The [place] Cancer Society, [facility] Unit . The Wellness Community [facility] The Cancer Support Community[facility]: http://cancersupportvaio.org/prog pieo-nmt-phuuhcvp/virtual-communi ty/ National Resources: [place] Cancer Society (ACS), www.cancer.org 7-574-TLV-2345, [place]: 0-124-WHX-[place]. [place] (NCCN) 2-870-611-NCCN, www.nccn.org National Cancer Sprakers (NCI) 1-288-6-CANCER, www.nci.gov The following attachments cannot be sent through Care Everywhere.Lovenox or Heparin: Subcutaneous Injections ([facility]) (Armenian)documented in this encounter [facility] 04-29-2022 Note PROCEDURE: XR HIP RT [...] by: CAROLYN WALSH Date: 2022-04-29 16:59 [facility] 04-29-2022 Note PROCEDURE: XR HIP RT [...] by: CAROLYN WALSH Date: 2022-04-29 16:59 [facility] 04-29-2022 Note PROCEDURE: XR HIP RT [...] by: CAROLYN WALSH Date: 2022-04-29 16:59 [facility] 03-19-2022 History of Present illness Narrative [...] appendectomy on 02/03/22 for acute appendicitis at [facility]. 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 She presents to [facility] GI Surgical Oncology clinic for surgical evaluation. [...] History: Procedure Laterality Date APPENDECTOMY LAPAROSCOPIC 02/03/2022 [facility], [place], [place] No Known Allergies Current Outpatient Medications [...] in our surgical oncology clinic at [facility], The [facility] and [facility]. As you know, Ms. Swift is [...] the future. Sincerely, Suman Baker MD, PhD us administrative law judge Department of Surgery Division of Surgical Oncology [address] [place] [address] Office [phone] Fax [email or web address] documented in this encounter [facility] 03-19-2022 Instructions Rhoda Lazo RN - 03/19/2022 3:00 PM EDT Pre-operative Information As a patient at the [facility], you may work with various departments and have help from many professionals. One of these is a surgical oncologist who works in the Division of Surgical Oncology. Surgical oncologists are surgeons who have completed advanced training to care for cancer patients. All of the surgical oncologists at the [facility] have completed specialized training and are board-certified. The surgeon who will be performing your surgery is Suman Baker M.D., us administrative law judge. [address] [facility], [place] [address] Office phone: [phone] We are available to take calls Wednesday-Wednesday 8:00am-4:30pm. During non-business hours and holidays phone calls will be forwarded to a service covering our patients. Please communicate with our team through [facility] [employer] for non-urgent issues only. Office fax: [phone] Clinic Nurse Practitioner Carlos Gomes Hearing Therapist Sandra Kennedy Inspector Screen Printing Iris Giraldo OUR TEAM OF EXPERTS The [facility] is associated with The [facility] and is an academic medical center. Dr. Skip Le is an attending physician, the meat supervisor of your care. Listed below are the members of his team: Surgical Oncology Fellow: a physician who completed residency and is obtaining further education. Resident(s): a physician who has finished journalism internship and is receiving training in a specialized area (i.e. surgery) Icu Manager(s): a physician who has completed medical school and is in the 1st year of training Nurse Practitioner (RESUME SPECIALIST): A registered nurse with a master's or doctoral degree who is licensed to practice; Clinic: Carlos Gomes, [facility]: [facility], [facility], Suman Jeffries, [facility], Kika Colón, [facility], Monica Jackson, [facility] Patient Care Clipper Machine (PCRM): A registered nurse who coordinates care for patients returning home from the hospital and assists in coordinating home care; Clinic: Alissa Hunt RN, Hospital: Felicitas Campos RN, Yoselyn Lange RN, Antonio Jeffrey RN. MEDICAL RECORDS The Release of Information (ROSALBA) area is staffed from 8:00 a.m. to 7:00 p.m. and is available for walk in requests from 8:00 a.m. to 4:30 p.m. [facility] is responsible for answering requests for copies of medical records from various requestors such as insurance companies, hospitals and patients. Please note it can take up to 2 weeks to complete your request. [phone] DISABILITY FORMS This category includes any form [...] a private room? All rooms at the [facility] are private. Do you have a social work job titles available? A social work job titles is assigned to our team. How can I help my family plan for my discharge? From the moment a patient is admitted, the RUST begin to plan for the patient s discharge. Plan to leave at 11am on the day of discharge. Discharge instructions will be given to the patient. The hospital nurse will discuss these with you. Does the Isrrael precertify my surgery? Yes. The precertification department at [facility] will notify your insurance carrier. Who should I contact if I anticipate difficulty paying my bill? We want to make sure all patients have access to the quality healthcare services of [facility], and we are committed to working with you and your family to obtain appropriate financial assistance. You may contact the Office of Financial Counseling [phone] weekdays between 8am and 5pm to help determine whether you might qualify for an assistance program. Do I need to bring clothes from home to wear at the hospital? The Isrrael will provide you with personal items. You may wish to bring a robe or slippers. Does the Isrrael have a designated area for smoking? The [facility] does not permit smoking inside or outside the hospitals including parking areas and sidewalks. If you would like to quit, you can contact a tobacco wastewater treatment supervisor at [phone] or the [place] Tobacco QUIT LINE at [phone]. Where can I find information about visitation, [...] someone after business hours? The office number, [phone] or [phone], is connected to an answering service after 4:30pm each weekday and on weekends, available 08/02. What number should I call if I have billing questions? Please call [facility] s Central Business Office at [phone]. Please Note: In regards to petroleum terminal plant operator pain control. You may need narcotic pain [...] call by 4 p.m., please call the [facility] Ambulatory Surgery Unit at . [...] the hospital. Do not wear makeup, nail yi or hair pins to the hospital. Please [...] a living will or durable power of criminal defense attorney, please bring a copy of the documents with you. IF YOU USE CPAP BRING YOUR MACHINE WITH YOU TO THE HOSPITAL ALONG WITH THE PRESCRIPTION FOR CPAP PRESSURE LEVELS If you develop any illness, such as a cold, sore throat, cough, or fever, before your surgery, call the [facility] Ambulatory Surgery Unit at and [...] pulp Popsicles Ice Soft drinks Gatorade (Lemon Nikolski preferred) Clear broth or bouillon Jello Coffee [...] not red, orange, or purple in color. Lemon-kokhanok is preferred. You may need to pour [...] program. You can also get help through: [facility], National Quit Line, [place] Lung Association, [place] Cancer Society, Smokefree.gov website Stop Alcohol Use [...] helpful:Alcoholics Anonymous (AA) http://www.aa.org/ Rethinking Drinking https://www.rethinkingdrinking.[facility].nih.gov/ National Sprakers of Alcohol Abuse and Alcoholism https://niaaa.nih.gov/ Sasha Head 764-797-6888 -Inpatient, partial hospitalization and outpatient services for [...] Patient Controlled Analgesia (also known as a SHIP ENGINES OPERATING ENGINEER) A SHIP ENGINES OPERATING ENGINEER is a pain pump that could be [...] AM of surgery documented in this encounter [facility] 02-19-2022 Miscellaneous Notes Addended by: KARINE GALVAN on: 02/19/2022 04:15 PM Modules accepted: Orders INTESTINAL REFERRAL Let the person providing referral info know that you must speak directly to the patient. Our team cannot proceed with intake without communicating directly with the patient. 1) What is your (the patient's) direct phone contact number?- [phone] 2) What is your referring diagnosis? Appendix [...] resources available to cover travel expenses to [facility]? Yes We are currently flexible in offering initial virtual consultations for both surgery and transplant ONLY to patients living in [place], [place], and [place] through May 18, 2022. This may expand to other states depending on where the surgeon who conducts your initial visit is licensed (Dr. Wyatt is licensed in [place], [place], and [place]). If you are living in another state and desire an initial virtual consultation, you may choose to purchase a DIIME. (Surgical or transplant evaluations are highly individualized and may be conducted either through your local providers or at the [facility]. The plan for your evaluation will [...] for any pre-surgical testing done at the [facility], and for any post-surgical stay in [place] depending on your post-surgical course. 8) Would you be interested in participating in [facility] Online Virtual Visits for the psychosocial screening? - Yes If the patient says no, proceed as normal. If yes, please e-mail the patient and copy the social work job titles on it. She will need them to [...] have been over the past 1 year? [facility] (Submit ALL template in [employer] [place], AND for transplant patients submit MOST RECENT template) -Where else have you been for surgeries or testing and what years? Where/when was your very first abdominal surgery? Same as above 1st abdominal surgery- 01/2022 (Submit ALL template in [employer]) 10) How many drinks of alcohol do [...] On medication - Psychiatrist (Submit request in [employer] [place]) 15) Do you have a Power of Supervisor Publications (POA)? Do you have a Living Will?- No If so, please bring a copy of this to your appointment. 16) For females: When and where was your last mammogram (40 and up) and pap smear (16 and up)? - Needs to be within last year.- PAP- Never had & Mammo- No (Submit request in [employer] [place]) 17) For all patients: When and where was your last dental visit? - Needs to be within last 6 months.- about 6 months ago (Submit request in [employer]) 18) If transplant- Ask patient to obtain their immunization records and have them sent to us via mail/fax.- COVID- Yes The patient has been entered into Edit, chart is created, and request to [employer] for medical records has been generated. Financial clearance has been submitted for rehab/transplant (if on TPN or has dysmotility, submit for both rehab & transplant). Chart will be given to drainage design coordinator. Referral received from Dr. Rodney Olivas from [facility] ([phone]) to Dr. Davies. 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 Will call patient to start intake. documented in this encounter [facility] 12-22-2021 Evaluation note Encounter Date Diagnosis [...] Follow up with primary care provider or industrial technology education teacher if no improvement of symptoms. 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 [facility] Diagnosis Primary malignant neuroendocrine tumor of appendix Post-operative pain Other acute postoperative pain Primary malignant neuroendocrine tumor of appendix [facility] Diagnosis Primary malignant neuroendocrine tumor of appendix- Primary [facility] Diagnosis Primary malignant neuroendocrine tumor of appendix- Primary [facility] Diagnosis Primary malignant neuroendocrine tumor of appendix documented in [facility]* Diagnosis Primary malignant neuroendocrine tumor of appendix documented [facility]* Diagnosis Carcinoid syndrome- Primary SOB (shortness of breath) Shortness of breath Tachycardia Tachycardia, unspecified Antinuclear antibody (HUNTER) titer greater than 1:80 Primary malignant neuroendocrine tumor of appendix documented [facility]* Diagnosis Primary malignant neuroendocrine tumor of appendix documented [facility]* Diagnosis Carcinoid syndrome SOB (shortness of breath) Shortness of breath Tachycardia Tachycardia, unspecified Primary malignant neuroendocrine tumor of appendix documented [facility]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 Fibromyalgia muscle pain- Primary Mylagia and myositis, unspecified documented [facility]* Diagnosis Primary malignant neuroendocrine tumor of appendix- Primary [facility]* Diagnosis Primary malignant neuroendocrine tumor of appendix [facility]* Diagnosis 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 Neoplasm of unspecified nature of digestive system [facility] Diagnosis Third trimester state, incidental documented in this encounter [facility] N[facility] - Reported* Type Description Date Medical History chronic depression [employer] Other Reason for referral (narrative)* (Routine) Specialty Diagnoses / Procedures Referred By Katharine morales Referred To Contact [place] [address] Referral ID Status Reason Start Date Expiration Date Visits Re quested Visits Authorized * (Routine) - New Request Specialty Diagnoses / Procedures Referred By Contac t Referred To Contact Procedures PLATELET MONITORING PER PROTOCOL Suman Baker MD, PhD [address] [place] [address] Referral ID Status Reason Start Date Expiration Date V isits Requested Visits Authorized [id number] New Request 05/22/2022 06/16/2023 1 1 * (Routine) - New Request Specialty Diagnoses / Procedures Referred By Contac t Referred To Contact Procedures DVT/VTE RISK ASSESSMENT Suman Baker MD, PhD [address] [place] [address] Referral ID Status Reason Start Date Expiration Date V isits Requested Visits Authorized [id number] New Request 05/22/2022 06/16/2023 1 1 * (Routine) - New Request Specialty Diagnoses / Procedures Referred By Contac t Referred To Contact Procedures NO MECHANICAL DVT PROPHYLAXIS Liza Cisneros PA-C [address] [address] [place] [address] Referral ID Status Reason Start Date Expiration Date V isits Requested Visits Authorized [id number] New Request 05/22/2022 06/16/2023 1 1 [facility] for referral (narrative)* Consultation (Routine) - New Request Specialty Diagnoses / Procedures Referred By Contac t Referred To Contact Oncology Diagnoses Primary malignant neuroendocrine tumor of appendix Carlos Gomes, ASSISTANT PROFESSOR OF BIOLOGY-STATION MECHANIC [address] [place] [address] Andreas Ortega MD, MPH [address] [place] [address] Referral ID Status Reason Start Date Expiration Date V isits Requested Visits Authorized [id number] New Request 06/09/2022 07/04/2023 1 1 Electronically signed by Carlos Gomes [facility] at 06/09/2022 2:53 PM EST * MRI/CAT Scan (Routine) - New Request Specialty Diagnoses / Procedures Referred By Contac t Referred To Contact Diagnoses Primary malignant neuroendocrine tumor of appendix Procedures CT ABDOMEN/PELVIS WITH CONTRAST CHG CT SCAN,ABDOMENT AND PELVIS,W CONTRAST Carlos Gomes ASSISTANT [facility] [address] [place] [address] Referral ID Status Reason Start Date Expiration Date V isits Requested Visits Authorized [id number] New Request 06/09/2022 07/04/2023 1 1 [facility] Consultation (Routine) - New Request Specialty Diagnoses / Procedures Referred By Contac t Referred To Contact Genetics Diagnoses Primary malignant neuroendocrine tumor of appendix Yudelka Moralez ASSISTANT [facility] [address] [place] [address] Erin Stoner, [facility] [address] [address] Referral ID Status Reason Start Date Expiration Date V isits Requested Visits Authorized [id number] New Request 07/08/2022 08/02/2023 1 1 * MRI/CAT Scan (Routine) - New Request Specialty Diagnoses / Procedures Referred By Contac t Referred To Contact Diagnoses Primary malignant neuroendocrine tumor of appendix Procedures CT ABDOMEN/PELVIS WITH AND WITHOUT CONTRAST CHG CT SCAN,ABDOMENT AND PELVIS,Andreas Ellis MD, MPH [address] [address] Referral ID Status Reason Start Date Expiration Date V isits Requested Visits Authorized [id number] New Request 07/08/2022 08/02/2023 1 1 * Radiology (Routine) - New Request Specialty Diagnoses / Procedures Referred By Contac t Referred To Contact Diagnoses Primary malignant neuroendocrine tumor of appendix Procedures NUC PET NEUROENDOCRINE CHG NUC THERAPY HYPERTHYROID SUBSEQUENT Yudelka Moralez APRN-STATION MECHANIC [address] [place] [address] Referral ID Status Reason Start Date Expiration Date V isits Requested Visits Authorized [id number] New Request 07/08/2022 08/02/2023 1 1 [facility] Auth/Cert Specialty Diagnoses / Procedures Referred By 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] Procedures NM CHG HYPERTHERMIA RX INTRACAV PROBE NM PART REMOVAL COLON W ANASTOMOSIS NM RESECT RECURRENT TRANSFER STATION ATTENDANT MALIG 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) COLECTOMY PARTIAL OPEN DEBULKING INTRA-ABDOMINAL/PELVIC/RETROPE RITONEAL W/ OMENECTOMY & PELVIC PARA-AORTIC LYMPHADENECTOMY Suman Baker MD, PhD [address] [place] [address] [facility] [address] [place] [address] Referral ID Status Reason Start Date Expiration Date Visits Re quested Visits Authorized [id number] 1 1 [facility] Summary Purpose Family History No Family History Records FoundNo Family History Records FoundNo Family History Records FoundNo Family History Records FoundNo Family History Records Found Advance Directives No Advanced Directives Records FoundNo Advanced Directives Records FoundNo Advanced Directives Records FoundNo Advanced Directives Records FoundNo Advanced Directives Records Found Reason for Referral Specialty Diagnoses / Procedures Referred By [facility] Referred To Contact Echocardiography Diagnoses Carcinoid syndrome SOB (shortness of breath) Tachycardia Procedures ECHOCARDIOGRAM NM ECHO HEART XTHORACIC,COMPLETE W DOPPLER Yudelka Moralez ASSISTANT PROFESSOR OF BIOLOGY-STATION MECHANIC [address] [place] [address] [facility] [address] [place] [address] Referral ID Status Reason Start Date Expiration Date V isits Requested Visits Authorized [id number] Auth Not Needed 10/07/2022 11/01/2023 1 1 Specialty Diagnoses / Procedures Referred By Contac t Referred To Contact Diagnoses Primary malignant neuroendocrine tumor of appendix Procedures CT NECK WITH CONTRAST NM CT NECK TISSUE CONTRAST Yudelka Moralez APRN-CNP [address] [place] [phone] Referral ID Status Reason Start Date Expiration Date V isits Requested Visits Authorized [id number] New Request 10/07/2022 11/01/2023 1 1 Specialty Diagnoses / Procedures Referred By Contac t Referred To Contact Diagnoses Carcinoid syndrome SOB (shortness of breath) Tachycardia Primary malignant neuroendocrine tumor of appendix Procedures CT CHEST WITH CONTRAST CHG DIAGNOSTIC COMPUTED TOMOGRAPHY THORAX W/CONTRAST Yudelka Moralez APRN-CNP [address] [place] [phone] Referral ID Status Reason Start Date Expiration Date V isits Requested Visits Authorized [id number] New Request 10/07/2022 11/01/2023 1 1 Specialty Diagnoses / Procedures Referred By Contac t Referred To Contact Oncology Diagnoses Carcinoid syndrome SOB (shortness of breath) Tachycardia Yudelka Moralez APRN-CNP [address] [place] Referral ID Status Reason Start Date Expiration Date V isits Requested Visits Authorized [id number] New Request 10/07/2022 11/01/2023 1 1 Specialty Diagnoses / Procedures Referred By Contac t Referred To Contact Rheumatology Diagnoses Antinuclear antibody (HUNTER) titer greater than 1:80 Yudelka Moralez APRN-CNP [address] [place] [address] Referral ID Status Reason Start Date Expiration Date V isits Requested Visits Authorized [id number] New Request 10/07/2022 11/01/2023 1 1 Specialty Diagnoses / Procedures Referred By Contac t Referred To Contact Diagnoses Primary malignant neuroendocrine tumor of appendix Procedures CT ABDOMEN/PELVIS WITH CONTRAST CHG CT SCAN,ABDOMENT AND PELVIS,W CONTRAST Carlos Gomes ASSISTANT PROFESSOR OF BIOLOGY-STATION MECHANIC [address] [place] [phone] Referral ID Status Reason Start Date Expiration Date Visits Re quested Visits Authorized [id number] Closed 03/19/2022 04/13/2023 1 1 Specialty Diagnoses / Procedures Referred By Contac t Referred To Contact TRANSPLANT Diagnoses Cancer of appendix (HCC) Procedures CONSULT TO [facility] EXPLORATORY LAPAROTOMY CELIOTOMY W/WO BIOPSY SPX Vernon Davies MD [address] [place] [address] [facility] [address] [place] [address] Referral ID Status Reason Start Date Expiration Date Visits Requested Visits Authorized [id number] Pending Review Financial Clearance Required - [employer] 02/19/2022 02/19/[phone] Additional Source Comments INFORMATION SOURCE (unrecogn ized section and content) DATE CREATED AUTHOR 02/19/2021 [facility] DATE CREATED AUTHOR AUTHOR'S ORGANIZ ATION 01/03/2022 [facility] DATE CREATED AUTHOR AUTHOR'S ORGANIZ ATION 12/25/2022 [facility] DATE CREATED AUTHOR AUTHOR'S ORGANIZ ATION 04/24/2023 [facility] DATE CREATED AUTHOR AUTHOR'S ORGANIZ ATION 09/20/2023 [facility] EPIC REASON FOR VISIT (unrecogniz ed section and content) Reason Comments Referral Request Specialty Diagnoses / Procedures Referred By Contac t Referred To Contact Diagnoses Primary malignant neuroendocrine tumor of appendix Procedures CT ABDOMEN/PELVIS WITH CONTRAST CHG CT SCAN,ABDOMENT AND PELVIS,W CONTRAST Carlos Gomes ASSISTANT PROFESSOR OF BIOLOGY-STATION MECHANIC [address] [place] [address] Referral ID Status Reason Start Date Expiration Date Visits Re quested Visits Authorized [id number] Closed 03/19/2022 04/13/2023 1 1 Reason Comments New Patient Specialty Diagnoses / Procedures Referred By Contac t Referred To Contact Surgical Oncology Diagnoses New patient - Appendix NET - External: Dr. Timmy Hall - Preferred: Oanh Procedures NEW ISRRAEL SURGERY Self, Self Suman Baker MD, PhD [address] [place] [phone] Referral ID Status Reason Start Date Expiration Date Visits Re quested Visits Authorized [id number] Closed 03/19/2022 04/13/2023 1 1 Reason Comments Follow-up Reason Comments New Patient New diagnosis of sta ge 4 neuroendocrine tumor of the appendix with 1 peritoneal implant referred by Dr. BakerMost recent surgery 05/22/22--recovering well but slowly Lab Review Labs completed today prior to appt Other C-diff infection jus t finished course of vancomycin Specialty Diagnoses / Procedures Referred By Contac t Referred To Contact Oncology Diagnoses Primary malignant neuroendocrine tumor of appendix Carlos Gomes ASSISTANT PROFESSOR OF BIOLOGY-STATION MECHANIC [address] [place] [address] Andreas Ortega MD, MPH [address] [place] [phone] Referral ID Status Reason Start Date Expiration Date V isits Requested Visits Authorized [id number] New Request 06/09/2022 07/04/2023 1 1 Specialty Diagnoses / Procedures Referred By Contac t Referred To Contact Diagnoses Primary malignant neuroendocrine tumor of appendix Procedures NUC PET NEUROENDOCRINE CHG NUC THERAPY HYPERTHYROID SUBSEQUENT Yudelka Moralez, ASSISTANT PROFESSOR OF BIOLOGY-STATION MECHANIC [address] [place] [address] Referral ID Status Reason Start Date Expiration Date Visits Re quested Visits Authorized [id number] Closed 07/08/2022 08/02/2023 1 1 Specialty Diagnoses / Procedures Referred By Contac t Referred To Contact Diagnoses Primary malignant neuroendocrine tumor of appendix Procedures CT ABDOMEN/PELVIS WITH AND WITHOUT CONTRAST CHG CT SCAN,ABDOMENT AND PELVIS,Andreas Ellis MD, MPH [address] [address] Referral ID Status Reason Start Date Expiration Date Visits Re quested Visits Authorized [id number] Closed 07/08/2022 08/02/2023 1 1 Reason Comments [...] of appendix Procedures CT NECK WITH CONTRAST NM CT NECK TISSUE CONTRAST Yudelka Moralez APRN-CNP [address] [place] [address] Referral ID Status Reason Start Date Expiration Date Visits Re quested Visits Authorized [id number] Closed 10/07/2022 11/01/2023 1 1 Specialty Diagnoses / Procedures Referred By Katharine t Referred To Contact Echocardiography Diagnoses Carcinoid syndrome SOB (shortness of breath) Tachycardia Procedures ECHOCARDIOGRAM NM ECHO HEART XTHORACIC,COMPLETE W DOPPLER Yudelka Moralez APRN-TASH [address] [place] [address] Echocardiography [place] [address] [place] [address] Referral ID Status Reason Start Date Expiration Date Visits Re quested Visits Authorized [id number] Closed 10/07/2022 11/01/2023 1 1 Specialty Diagnoses / Procedures Referred By Lindaac t Referred To Contact Diagnoses Carcinoid syndrome SOB (shortness of breath) Tachycardia Primary malignant neuroendocrine tumor of appendix Procedures CT CHEST WITH CONTRAST CHG DIAGNOSTIC COMPUTED TOMOGRAPHY THORAX W/CONTRAST Yudelka Moralez APRN-CNP [address] [place] [phone] Referral ID Status Reason Start Date Expiration Date Visits Re quested Visits Authorized [id number] Closed 10/07/2022 11/01/2023 1 1 Reason Comments New Patient Referred by Dorothy Moralez NP for JR. 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 Joint achy/flu symptoms, tachcardia, + HUNTER. 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 Procedures MRI ABDOMEN/PELVIS WITHOUT CONTRAST NM MRI, ABDOMEN (MRI) NM MRI, PELVIS, W/O CONTRAST Yudelka Moralez, ASSISTANT PROFESSOR OF BIOLOGY-STATION MECHANIC [address] [place] [address] Referral ID Status Reason Start Date Expiration Date Visits Re quested Visits Authorized [id number] Closed 03/09/2023 04/02/2024 1 1 Reason Comments Routine Visit Source Comments (unrecognize d section and content) In the event this informatio n is protected by the Federal Confidentiality of Alcohol and Drug Abuse Patient Records regulations: The Federal rules restrict any use of the information to criminally investigate or prosecute any alcohol or drug abuse patient.[facility] Care Teams (unrecognized sec tion and content) Training And Development Director Relationship Specialty Start Date End Date Erin Sams RN PCP - General 03/19/22 Rodney Olivas MD [address] [place] [address] Hematology 03/19/22 Training And Development Director Relationship Specialty Start Date End Date Erin Sams RN PCP - General 03/19/22 Rodney Olivas MD [address] [place] [address] Hematology 03/19/22 Training And Development Director Relationship Specialty Start Date End Date Erin Sams RN PCP - General 03/19/22 Rodney Olivas MD [address] [place] [address] Hematology 03/19/22 Training And Development Director Relationship Specialty Start Date End Date Erin Sams RN PCP - General 03/19/22 Rodney Olivas MD [address] [place] [address] Hematology 03/19/22 Training And Development Director Relationship Specialty Start Date End Date Erin Sams RN PCP - General 03/19/22 Rodney Olivas MD [address] [place] [address] Hematology 03/19/22 Suman Baker MD, PhD [address] [place] [address] Surgeon Surgical Oncology 07/08/22 Training And Development Director Relationship Specialty Start Date End Date Erin Sams RN PCP - General 03/19/22 Rodney Olivas MD [address] [place] [address] Hematology 03/19/22 Suman Baker MD, PhD [address] [place] [address] Surgeon Surgical Oncology 07/08/22 Training And Development Director Relationship Specialty Start Date End Date Erin Sams RN PCP - General 03/19/22 Rodney Olivas MD [address] [place] [address] Hematology 03/19/22 Suman Baker MD, PhD [address] [place] [address] Surgeon Surgical Oncology 07/08/22 Training And Development Director Relationship Specialty Start Date End Date Erin Sams RN PCP - General 03/19/22 Rodney Olivas MD [address] [place] [address] Hematology 03/19/22 Suman Baker MD, PhD [address] [place] [address] Surgeon Surgical Oncology 07/08/22 Cheikh Coelho MD [address] [place] [address] Renewable Energy Engineer Cardiovascular Disease 10/07/22 Training And Development Director Relationship Specialty Start Date End Date Erin Sams RN PCP - General 03/19/22 Rodney Olivas MD [address] [place] [address] Hematology 03/19/22 Suman Baker MD, PhD [address] [place] [address] Surgeon Surgical Oncology 07/08/22 Cheikh Coelho MD [address] [place] [address] Renewable Energy Engineer Cardiovascular Disease 10/07/22 Training And Development Director Relationship Specialty Start Date End Date Erin Sams RN PCP - General 03/19/22 Rodney Olivas MD [address] [place] [address] Hematology 03/19/22 Suman Baker MD, PhD [address] [place] [address] Surgeon Surgical Oncology 07/08/22 Cheikh Coelho MD [address] [place] [address] Renewable Energy Engineer Cardiovascular Disease 10/07/22 Training And Development Director Relationship Specialty Start Date End Date Erin Sams RN PCP - General 03/19/22 Rodney Olivas MD [address] [place] [address] Hematology 03/19/22 Suman Baker MD, PhD [address] [place] [phone] Surgeon Surgical Oncology 07/08/22 Cheikh Coelho MD [address] [place] [address] Renewable Energy Engineer Cardiovascular Disease 10/07/22 Training And Development Director Relationship Specialty Start Date End Date Erin Sams RN PCP - General 03/19/22 Rodney Olivas MD [facility] [place] [address] Hematology 03/19/22 Suman Baker MD, PhD [address] [place] [phone] Surgeon Surgical Oncology 07/08/22 Cheikh Coelho MD [address] [place] [address] Renewable Energy Engineer Cardiovascular Disease 10/07/22 Training And Development Director Relationship Specialty Start Date End Date Erin Sams CNP [address] [place] [address] PCP - General 03/10/23 Rodney Olivas MD [address] [place] [address] Hematology 03/19/22 Suman Baker MD, PhD [address] [place] [address] Surgeon Surgical Oncology 07/08/22 Cheikh Coelho MD [address] [place] [address] Renewable Energy Engineer Cardiovascular Disease 10/07/22 Training And Development Director Relationship Specialty Start Date End Date Erin Sams CNP [address] [place] [address] PCP - General 03/10/23 Rodney Olivas MD [address] [place] [address] Hematology 03/19/22 Suman Baker MD, PhD [address] [place] [address] Surgeon Surgical Oncology 07/08/22 Cheikh Coelho MD [address] [place] [address] Renewable Energy Engineer Cardiovascular Disease 10/07/22 Scheduled Active and Recently [...] Chamberlain RN)2134 (Given - Provider: Craig Pagan, RN) 0613 (Given - Provider: Craig Pagan, RN)1400 (Canceled Entry - Provider: System Discharge [...] this med in 2 months at home) 09 (Not Given - Provider: Tania Louis RN [...] over 4 Hours, ONCE, 1 dose, On Eliana 05/28/22 at 0600 0606 ($$New Bag$$ - Provider: Craig Pagan RN)0607 (Rate/Dose Verify - Provider: Tania Louis RN)0613 (Rate/Dose Verify - Provider: Tania Louis, RUPERT)0613 (Rate/Dose Verify - Provider: Tania Louis, RUPERT)0709 (Rate/Dose Verify - Provider: Tania Louis, RN)0825 (Rate/Dose Verify - Provider: Tania Louis, RN)1023 (Stopped - Provider: Tania Louis RN) [...] 40 mg, Intravenous, DAILY, First dose on Wed05/23/22 at 0900, Until Discontinued, Dilute each 40 mg vial with 10 mL of NS. All bolus doses, whether 40 mg or 80 mg, should be administered over at least two minutes., Indications: GERD 09 (Given - Provider: Alena Wade RN) pantoprazole [...] dose on Wed05/27/22 at 0900, Until Discontinued 904 (Given - Provider: Alena Wade RN) 0916 [...] Verify - Provider: Yadira Grier RN)0659 (Epidural [place] Volume/Shift Total - Provider: Yadira Grier RN - Comment: shift total: 175 ml remaining)1105 (Rate/Dose Verify - Provider: Alena Wade RN)1122 (Rate/Dose Verify - Provider: Alena Wade RN)1459 (Rate/Dose Verify - Provider: Alena Wade RN)1555 (Rate/Dose Verify - Provider: Alena Wade RN)1848 (Rate/Dose Verify - Provider: Alena Wade RN)1849 (Rate/Dose Verify - Provider: Alena Wade RN)1910 (Epidural [place] Volume/Shift Total - Provider: Alena Wade RN - Comment: 100mL left in cartridge) 0100 (Epidural [place] Volume/Shift Total - Provider: Craig Pagan RN [...] Grier RN)0909 ($$New Bag$$ - Provider: Alena Waed RN)1122 (Rate/Dose Verify - Provider: Alena Wade RN)1227 (Paused - Provider: Alena Wade RN)1239 (Restarted - Provider: Alena Wade RN)1459 [...] NEEDED, Starting on Wed05/22/22 at 1526, Until Eliana 05/28/22 at 1239, Moderate Pain, Severe Pain, For [...] 1302 (See Alternative - Provider: Yvrose Chamberlain RN)1731 (See Alternative - Provider: Tania Louis RN)2134 (See Alternative - Provider: Craig Pagan RN) 0425 (See Alternative - Provider: Craig Pagan RN)0854 (See Alternative - Provider: Tania Louis RN) oxyCODONE HCl (ROXICODONE) tablet 10 mg(Linked Group 3) 10 mg, Oral, EVERY 4 HOURS NEEDED, Starting on Wed05/28/22 at 1239, Until Wed05/29/22 at 1402, Severe Pain 1302 (Given - Provider: Yvrose Chamberlain RN)1731 (Given - Provider: Tania Louis RN)2134 (Given - Provider: Craig Pagan RN) 0425 [...] RN)1849 (Rate/Dose Verify - Provider: Alena Wade RN)195 (Paused - Provider: Craig Pagan RN)2003 (Restarted [...] BE BASED ON THE PRIMARY CLINICAL RECORDS. [employer] [facility]. provides no warranty or guarantee of the accuracy or completeness of information in this document.
[2023-09-25 12:33] LABS: Amphetamine Screen Urine NEGATIVE (NEGATIVE); Barbiturates Screen Urine NEGATIVE (NEGATIVE); Benzodiazepines Screen Urine NEGATIVE (NEGATIVE); Buprenorphine Screen Urine NEGATIVE (NEGATIVE); Cannabinoid Screen Urine NEGATIVE (NEGATIVE); Cocaine Screen Urine NEGATIVE (NEGATIVE); Methadone Screen Urine NEGATIVE (NEGATIVE); Methamphetamines Screen Urine NEGATIVE (NEGATIVE); Opiate Screen Urine NEGATIVE (NEGATIVE); Oxycodone Screen Urine NEGATIVE (NEGATIVE); Phencyclidine Screen Urine NEGATIVE (NEGATIVE); Tricyclic Antidepressant Urine NEGATIVE (NEGATIVE)
--- NOTE | 2023-09-25 12:47 | PM.OBHP ---
OB - H&P: HPI History of Present Illness Chief complaint: THINKS WATER BROKE : 1 Para: 0 Gestational age based on last menstrual period: 38 4/7 Comments: srom History of Present Dating criteria: LMP confirmed by 1st trimester US care: good care Ultrasounds: normal 1st trimester US Medical complications OB: none Labs Blood type: A (+) positive Rubella: immune RPR/VDLR: nonreactive GBS status: negative HBsAG: negative Review of Systems ROS Status of ROS: 10 or more systems reviewed and unremarkable except as noted in history and below PFSH PFSH Social History Smoking status: Never smoker Meds Home Medications and Allergies Home Medications Medication Instructions Recorded Confirmed Type fluoxetine 40 mg capsule (Prozac) 40 mg PO DAILY 01/03/23 04/28/23 History ondansetron HCl 4 mg tablet 4 mg PO Q8H PRN nausea and 02/08/23 02/14/23 Rx vomiting 4 days #10 tabs omeprazole 20 mg capsule,delayed 20 mg PO DAILY 04/28/23 04/28/23 History release Allergies Allergy/AdvReac Type Severity Reaction Status Date / Time gabapentin Allergy Mild Vomiting Verified 02/08/23 22:09 Exam Constitutional Vital Signs, click to edit/add: Last Vital Signs Pulse 95 H 09/25/23 11:33 BP 132/85 09/25/23 11:33 Documenting provider has reviewed patient's vital signs: yes Common normals: no apparent distress Respiratory Common normals: normal respiratory effort and clear to auscultation bilaterally Cardio Common normals: regular rate and regular rhythm GI Common normals: Normal to inspection, nondistended, normoactive bowel sounds present Extremity Common normals: no calf tenderness OB - A/P Assessment and Plan (1) Intrauterine : (2) SROM (spontaneous rupture of membranes): Plan iup at 38 4/7wks , pt refusing try of labo, pt desires elective c/s, srom, active labor-will proceed to or, consent obtained, mmc reviewed, procedure reviewed
[2023-09-25] MEDS: CITRIC ACID/SODIUM CITRATE 30 ML SOLUTION ORACIT SHOHL'S SOLN PO (12:50)
[2023-09-25] MEDS: FAMOTIDINE/PF 20 MG/2 ML VIAL IV (12:50)
[2023-09-25] MEDS: METOCLOPRAMIDE HCL 10 MG/2 ML VIAL IVP (12:50)
[2023-09-25] MEDS: 0.9 % SODIUM CHLORIDE 1,000 ML 1000 ML IV (13:00)
[2023-09-25] MEDS: CEFAZOLIN SODIUM/DEXTROSE,ISO 2 GM/50 ML PIGGYBACK IV ×2 (13:01→19:49)
[2023-09-25 13:06] LABS: Basophils Percent Auto 0.3 % (0.2-2.0); Eosinophils Absolute Auto 0.1 10^3/uL (0.0-0.7); Eosinophils Percent Auto 0.7 % (0.9-7.0); Hematocrit 38.9 % (36.0-48.0); Hemoglobin 12.4 g/dL (12.0-16.0); Immature Granulocytes Abs Auto 0.03 10^3/uL (0.00-0.03); Immature Granulocytes Pct Auto 0.3 % (0.0-0.5); Lymphocytes Absolute Auto 1.3 10^3/uL (1.2-3.8); Lymphocytes Percent Auto 15.1 % (20.5-60.0); Mean Corpuscular HGB Conc 31.9 g/dL (29.9-35.2); Mean Corpuscular Hemoglobin 27.6 pg (26.7-34.0); Mean Corpuscular Volume 86.4 fL (81.0-99.0); Mean Platelet Volume 11.2 fL (9.5-13.5); Monocytes Absolute Auto 0.8 10^3/uL (0.3-0.8); Neutrophils Absolute Auto 6.5 10^3/uL (1.4-6.5); Neutrophils Percent Auto 74.6 % (43.0-75.0); Platelet Count 230 10^3/uL (150-450); Red Cell Distribution Width 19.9 % (11.0-15.0); White Blood Count 8.7 10^3/uL (4.0-11.0)
--- NOTE | 2023-09-25 13:59 | PM.ONB ---
Brief Operative Note Date of procedure: 09/25/23 Pre-op diagnosis: iup at 38 4/7wks, elective c/s Procedure: NAME OF PROCEDURE: [ section ] PROCEDURE: Patient was taken back to the Operating Room where she was given a spinal anesthesia with Duramorph without difficulty. She was prepped and draped in the normal sterile fashion. A Pfannenstiel skin incision was then made 2 cm above the symphysis pubis and carried down to underlying rectus fascia using a Bovie. The fascia was incised in the midline and extended laterally using Storey scissors. Two Rhett clamps were placed on the superior aspect of the fascia and dissected off the underlying rectus muscles. The same was performed on the inferior aspect as well. The muscles were then in the midline. Peritoneum was identified and entered bluntly. The peritoneum was then extended superiorly and inferiorly with good visualization of the bladder. The bladder blade was inserted. A low transverse incision was made on the patient's uterus and extended laterally digitally. The was then delivered atraumatically after the bladder blade was removed in the cephalic position. The cord was clamped and cut. Cord blood was obtained. The infant was handed off to awaiting team. The patient's placenta was spontaneously delivered. The uterus was then exteriorized. The uterus was cleared of all clots and debris. The bladder blade was reinserted. The patient's uterine incision was closed using #0 Vicryl in a running lock fashion. Excellent hemostasis was assured. The uterus was then returned to the patient's abdomen. The patient's abdomen was copiously irrigated using warm saline. Peritoneal gutters were cleared of all clots and debris. Again excellent hemostasis was assured. The patient's peritoneum was closed using 3-0 Vicryl in a running fashion. The patient's fascia was closed using #0 Vicryl in a running fashion. The patient's skin was closed using 4-0 Vicryl subcuticularly. The patient tolerated the procedure well. Sponge, lap, and needle counts were correct x2. The patient was taken to the Recovery Room in stable condition. Anesthesia: spinal Surgeon: Ron Ruano Estimated blood loss (mL): 575 Pathology: other (placenta) Condition: stable Disposition: floor
--- NOTE | 2023-09-25 14:03 | PM.OBPRCCS ---
Procedure Pre-op/Post-op diagnoses: iup at 38 4/7wks, elective c/s Procedure: c/s Bag Cutter: Johana Campbell Estimated blood loss (mL): 575 Disposition: floor Anesthesia type: Spinal
[2023-09-25] MEDS: OXYTOCIN/0.9 % SODIUM CHLORIDE 20 UNITS/1,000 ML PLAST..BAG 200 UNIT IV (14:27)
[2023-09-25] MEDS: KETOROLAC TROMETHAMINE 30 MG/ML VIAL IVP (19:49)
[2023-09-25] MEDS: ACETAMINOPHEN 500 MG TABLET 1000 MG PO (20:58)
[2023-09-26] VITALS (8 sets, daily range): BP systolic 111–138; BP diastolic 68–93; PULSE 70–93; RESP 14–18; TEMP 36.3–36.8
[2023-09-26] MEDS: ENOXAPARIN SODIUM 40 MG/0.4 ML SYRINGE SUBQ (00:11)
[2023-09-26] MEDS: OXYCODONE HCL 5 MG TABLET PO ×3 (00:12→18:10)
[2023-09-26] MEDS: FLUOXETINE HCL 20 MG CAPSULE PO ×2 (00:12→09:04)
[2023-09-26] MEDS: KETOROLAC TROMETHAMINE 30 MG/ML VIAL IVP ×2 (03:45→09:04)
[2023-09-26 06:04] LABS: Basophils Absolute Auto 0.1 10^3/uL (0.0-0.1); Basophils Percent Auto 0.4 % (0.2-2.0); Eosinophils Absolute Auto 0.1 10^3/uL (0.0-0.7); Eosinophils Percent Auto 0.5 % (0.9-7.0); Hematocrit 31.6 % (36.0-48.0); Hemoglobin 10.1 g/dL (12.0-16.0); Immature Granulocytes Abs Auto 0.06 10^3/uL (0.00-0.03); Immature Granulocytes Pct Auto 0.4 % (0.0-0.5); Lymphocytes Absolute Auto 2.1 10^3/uL (1.2-3.8); Lymphocytes Percent Auto 14.4 % (20.5-60.0); Mean Corpuscular Hemoglobin 27.8 pg (26.7-34.0); Mean Corpuscular Volume 87.1 fL (81.0-99.0); Mean Platelet Volume 11.3 fL (9.5-13.5); Monocytes Absolute Auto 1.1 10^3/uL (0.3-0.8); Monocytes Percent Auto 7.7 % (1.7-12.0); Neutrophils Absolute Auto 11.3 10^3/uL (1.4-6.5); Neutrophils Percent Auto 76.6 % (43.0-75.0); Platelet Count 187 10^3/uL (150-450); Red Blood Count 3.63 10^6/uL (4.20-5.40); Red Cell Distribution Width 19.7 % (11.0-15.0); White Blood Count 14.8 10^3/uL (4.0-11.0)
--- NOTE | 2023-09-26 06:34 | PC.NURSE ---
Order for Social Service consult due to THC+ was entered in error. Will notify provider order entered in error and needs canceled.
[2023-09-26] MEDS: DOCUSATE SODIUM 100 MG CAPSULE PO ×2 (09:04→21:09)
--- NOTE | 2023-09-26 10:33 | P.OBPN_ITS ---
OB - PN: Subj Subjective Patient comments: no complaints and other (states she has anxiety and it's really bad since delivering. She is very worried baby will of SIDS. Support and verbal education given to patient ) infant status: doing well and bottle [place] feeding status: exclusively bottle feeding Exam Constitutional Vital Signs, click to edit/add: Last Vital Signs Temp 97.6 F 09/26/23 08:15 Pulse 78 09/26/23 08:14 Resp 14 09/26/23 08:15 BP 111/70 09/26/23 08:14 Pulse Ox 95 09/25/23 16:15 O2 Del Method Room Air 09/26/23 08:15 Documenting provider has reviewed patient's vital signs: yes Common normals: no apparent distress and oriented x3 General appearance: cooperative HENMT Common normals: normocephalic Eye Common normals: EOMs intact bilaterally Neck & C-Spine Common normals: no lymphadenopathy Lymph Lymphatic: no lymphadenopathy noted Chest Common normals: inspection of chest normal Respiratory Common normals: normal respiratory effort and no use of accessory muscles Effort & inspection: able to speak in complete sentences Auscultation: clear to auscultation bilaterally Cardio Common normals: regular rate and regular rhythm Rate: regular rate Rhythm: regular rhythm GI Common normals: Normal to inspection, nondistended, normoactive bowel sounds present Inspection: normal to inspection Auscultation: normoactive bowel sounds Palpation: soft Common normals: no CVA tenderness Back & Pelvis Common normals: no CVA tenderness Extremity Common normals: normal to inspection Neuro Common normals: oriented x3 and moves all extremities Sensorium/orientation: awake, alert, oriented to person, oriented to place and oriented to time Psych Common normals: affect normal Appearance: grossly normal Attitude: other (patient is anxious and had a panic attack during the night. ) Activity/motor behavior: appropriate eye contact Results Labs Labs: Short CBC 09/25/23 09/26/23 Range/Units 12:40 05:48 WBC 8.7 14.8 H (4.0-11.0) 10^3/uL Hgb 12.4 10.1 L (12.0-16.0) g/dL Hct 38.9 31.6 L (36.0-48.0) % Plt Count 230 187 (150-450) 10^3/uL Urinary Catheter Management Urinary Catheter Management Urethral: Cath placed during this visit: yes Urethral indwelling: No Insertion date: 09/25/23 Insertion time: 13:15 OB - PN: A/P Assessment and Plan (1) Intrauterine : (2) SROM (spontaneous rupture of membranes): Plan - day: 1 Plan: routine postop care Comment: social service consult for anxiety, need for counseling and medication management. She was seeing a counselor 'psychiatrist on line and I got Lamictal during that time, and I stopped taking it with . I did recommend on discharge that needs follow up with psych and counseling to help manage the anxiety and also get her on a medication regimen appropriate for her. She denies suicidal ideations and homicidal ideations. Patient is calm in speaking with me, smiles and appropriate conversation. Accepts my recommendation for therapy, mental health provide, and states yes, I need to start seeing someone on a regular basis. Dr Orantes taking care of the baby and she would like to speak to the patient regarding her anxiety and has some recommendations for audio tapes and some self help while awaiting to get in with a counselor and provider. Time Spent with Patient Time: Total time spent is greater than 50% in coordination of care (as documented) at patient's floor/unit and/or counseling patient: Total time spent with greater than 50% in coordination of care (as documented) at patient's floor/unit and/or counseling patient: less than 15 minutes
[2023-09-26] MEDS: HYDROCORTISONE 1% CREAM 28 GRAM TUBE 1 APPLIC TOPICAL (12:50)
[2023-09-26] MEDS: ACETAMINOPHEN 500 MG TABLET 1000 MG PO ×2 (12:56→21:09)
[2023-09-26] MEDS: IBUPROFEN 400 MG TABLET 800 MG PO (16:37)
[2023-09-27] MEDS: IBUPROFEN 400 MG TABLET 800 MG PO ×3 (00:22→16:32)
[2023-09-27] MEDS: ENOXAPARIN SODIUM 40 MG/0.4 ML SYRINGE SUBQ (00:22)
[2023-09-27 00:23] VITALS: BP 116/80; PULSE 82; RESP 17; TEMP 35.8
[2023-09-27 00:24] VITALS: TEMP 36.2
[2023-09-27] MEDS: ACETAMINOPHEN 500 MG TABLET 1000 MG PO ×2 (04:47→15:28)
--- NOTE | 2023-09-27 07:37 | PM.OBPN ---
OB - PN: Subj Subjective Patient comments: no complaints and pain well controlled [place] status: doing well Exam Constitutional Vital Signs, click to edit/add: Last Vital Signs Temp 97.2 F L 09/27/23 00:24 Pulse 82 09/27/23 00:23 Resp 17 09/27/23 00:23 BP 116/80 09/27/23 00:23 Pulse Ox 95 09/25/23 16:15 O2 Del Method Room Air 09/26/23 12:50 Documenting provider has reviewed patient's vital signs: yes Common normals: no apparent distress and healthy appearing Respiratory Common normals: normal respiratory effort and clear to auscultation bilaterally Cardio Common normals: regular rate and regular rhythm GI Common normals: Normal to inspection, nondistended, normoactive bowel sounds present Extremity Common normals: normal to inspection and no calf tenderness Urinary Catheter Management Urinary Catheter Management Urethral: Cath placed during this visit: yes Urethral indwelling: No Insertion date: 09/25/23 Insertion time: 13:15 OB - PN: A/P Assessment and Plan (1) Intrauterine : (2) SROM (spontaneous rupture of membranes): Plan - day: 2 Plan: routine postop care, discharge home and follow up 6 weeks Time Spent with Patient Time: Total time spent is greater than 50% in coordination of care (as documented) at patient's floor/unit and/or counseling patient: Total time spent with greater than 50% in coordination of care (as documented) at patient's floor/unit and/or counseling patient: less than 15 minutes
--- NOTE | 2023-09-27 07:47 | W.PC.ACHO ---
Registration Status: ADM SANAZ Primary Language: Andorran Preferred Language: Andorran Report received from Rachna EMERY [id number]. Active Medications Generic Name Dose Route Start Last Admin Trade Name Freq PRN Reason Stop Dose Admin Acetaminophen 1,000 mg 09/25/23 21:00 09/27/23 04:47 Acetaminophen 500 Mg Tablet PO 1,000 mg Q8H ANANDA Administration Al Hydroxide/Mg Hydroxide 2,400 mg 09/25/23 14:04 Magnesium Hydroxide 2,400 Mg/10 Ml Oral.Susp PO Q6H PRN Dyspepsia Diphtheria/Pertussis/Tetanus Vacc 0.5 ml 09/27/23 09:00 Adacel Diph,Pertuss(Acell),Tet Vac/Pf 0.5 Ml Adult Syringe IM 09/27/23 09:01 .ONCE ONE Docusate Sodium 100 mg 09/26/23 09:00 09/26/23 21:09 Docusate Sodium 100 Mg Capsule PO 100 mg BID ANANDA Administration Enoxaparin Sodium 40 mg 09/25/23 23:00 09/27/23 00:22 Enoxaparin Sodium 40 Mg/0.4 Ml Syringe SUBQ 40 mg Q24H ANANDA Administration Fluoxetine HCl 20 mg 09/25/23 21:00 09/26/23 09:04 Fluoxetine Hcl 20 Mg Capsule PO 20 mg QD ANANDA Administration Hydrocortisone 1 applic 09/26/23 10:54 09/26/23 12:50 Hydrocortisone 1% Cream 28 Gram Tube TOPICAL 1 applic TID PRN Administration rash Sodium Chloride 1,000 mls @ 125 mls/hr 09/25/23 14:30 Sodium Chloride 0.9% 1,000 Ml IV .Q8H ANANDA Promethazine HCl 25 mg/ Sodium 51 mls @ 204 mls/hr 09/25/23 14:04 Chloride IV Q6H PRN Nausea And Vomiting Ibuprofen 800 mg 09/26/23 14:15 09/27/23 00:22 Ibuprofen 400 Mg Tablet PO 800 mg Q6H ANANDA Administration Measles/Mumps/Rubella Vaccine Live 0.5 ml 09/27/23 09:00 Measles,Mumps,Rubella Vacc/Pf 0.5 Ml Vial SQ 09/27/23 09:01 .ONCE ONE Ondansetron HCl 4 mg 09/25/23 14:04 Ondansetron Pf 4 Mg/2 Ml Vial IV Q6H PRN Nausea And Vomiting Ondansetron HCl 4 mg 09/25/23 14:04 Ondansetron 4 Mg Rapdis Tablet PO Q6H PRN Nausea And Vomiting Oxycodone HCl 5 mg 09/25/23 14:04 09/26/23 18:10 Oxycodone Hcl 5 Mg Tablet PO 5 mg Q4H PRN Administration Breakthrough Pain Senna 17.2 mg 09/25/23 20:00 Sennosides 8.6 Mg Tablet PO QHS PRN Constipation Simethicone 80 mg 09/25/23 14:04 Simethicone 80 Mg Tab.Chew PO QID PRN Abdominal Distention Respiratory Oxygen Delivery Method Room Air Oxygen Delivery Method Room Air Oxygen Delivery Method Room Air Oxygen Delivery Method Room Air Cardiology Heart Sounds Strong,Regular Heart Sounds Strong,Regular Bowels Bowel Pattern No Bowel Movement Bowel Pattern No Bowel Movement Renal Bladder Pattern Continent Bladder Pattern Continent Catheter Urinary Catheter Date of 09/25/23 Insertion [Urethral] Urinary Catheter Date of 09/25/23 Insertion [Urethral] Urinary Catheter Time of 13:15 Insertion [Urethral] Urinary Catheter Time of 13:15 Insertion [Urethral]
[2023-09-27 08:05] VITALS: RESP 16; TEMP 36.4
[2023-09-27] MEDS: DOCUSATE SODIUM 100 MG CAPSULE PO (08:07)
[2023-09-27] MEDS: FLUOXETINE HCL 20 MG CAPSULE PO (08:07)
[2023-09-27 08:10] VITALS: BP 126/86; PULSE 78
--- NOTE | 2023-09-27 16:02 | SWNOTE1 ---
SW met with pt and pt's (father of baby) due to consult for mental health. SW spoke with nursing prior to speaking with pt. She voiced pt has had a few panic attacks while here and anxious/nervous. Pt and father of baby voiced everything is going well. They have everything they need at home for baby. SW did ask how everything was going. Pt voiced the delivery went well and they are adapting. She voiced it is crazy how much they love her already. She stated it was a little nerve wrecking at first, but they both stated they have adapted within the last 24/48 hours and just love her. SW expressed to them both that there is a lot of information out there on the internet, from family members,etc. adn to just trust themselves and as new parents there natural instincts will kick in. SW also advised pt and they are always welcome to call here with any questions. Pt and voiced they have good support at home with there families. They do have everything they need at home for baby. Pt also voiced she has already called her PCP and is going to start her depression medication again. She voiced she is being proactive and wants to take the best care she can for baby. SW and pt spoke about post depression, pt voiced understanding. At this time pt has no concerns, and neither does .
[2023-09-27 16:45] VITALS: RESP 16; TEMP 37.2
[2023-09-27 17:46] VITALS: BP 120/90; PULSE 86
--- NOTE | 2023-09-27 17:50 | DS_ITS ---
DISCHARGE DATE: ??09/27/2023 PRIMARY DIAGNOSES: 1.? Intrauterine 38 and 4/7 weeks. 2.? Elective . PROCEDURE:? section. HOSPITAL COURSE:? As expected.? Please see chart for full details.? LABORATORY DATA:? Please see chart. COMPLICATIONS:? None. DISCHARGE CONDITION:? Stable. CONSULTATION:? Anesthesia. DISCHARGE INSTRUCTIONS: 1.? Diet:? Regular. 2.? Medications: a.? Percocet 5/325 one to two p.o. every 4-6 hours p.r.n. pain. b.? Motrin 800 one p.o. every 8 hours p.r.n. pain. 3.? Followup in one week. Restrictions:? Pelvic rest for 6 weeks.? No heavy lifting.? May drive when pain free and no longer on narcotics. ZHEND
== END 2023-09-27 17:50 | disposition home or self-care (01) | DRG 788 ==
PROVIDERS: Admitting Provider Obstetrics & Gynecology; PCP Nurse Practitioner Family; Visit Provider Obstetrics & Gynecology
DX: O33.9 Maternal care for disproportion, unspecified (principal); O75.82 Onset (spontaneous) of labor after 37 completed weeks of gestation but before 39 completed weeks gestation, with delivery by (planned) cesarean section; Z3A.38 38 weeks gestation of pregnancy; Z37.0 Single live birth; O99.344 Other mental disorders complicating childbirth; F41.9 Anxiety disorder, unspecified; Z90.49 Acquired absence of other specified parts of digestive tract
CPT/HCPCS: 36415; 51702; 59050; 80307; 84112; 85025; 86850; 86900; 86901; 88307; 94667; 94668; 96365; 96366; 96368; 96372; 96375; 96376; J1094

== ENCOUNTER 2023-10-15 15:56 | Outpatient (OUT) | payer OTHER, SELFPAY ==
--- NOTE | 2023-10-15 16:01 | XR_ITS ---
The [address] [address] Patient Name: KRYS MARTINEZ MRN: [id number] date: 1995 Sex: F Assigned Patient Location: [facility] Current Patient Location: Accession/Order Number: [id number] Exam Date: 10/15/2023 16:08 Report Date: 10/16/2023 06:56 At the request of: ELOISE SAMS Procedure: XR lumbar spine 2-3V EXAMINATION: XR lumbar spine 2-3V HISTORY: SCIATICA M54.30 ; chronic right side lumbar pain increasing in severity COMPARISON: No relevant comparison available. FINDINGS: BONES: Minimal left convex curvature lumbar spine. No fracture, spondylolisthesis, bone lesion. No significant facet arthropathy. DISC SPACES: No significant disc height narrowing, subluxation, or endplate abnormality. PARASPINOUS: Bowel sutures within right upper quadrant. OTHER: Negative. XR/XR lumbar spine 2-3V IMPRESSION: 1. No specific findings to account for patient's symptoms. Electronically authenticated by: CAROLYN WALSH Date: 10/16/2023 06:56
--- OUTSIDE RECORDS SUMMARY | 2023-10-15 16:02 | XMS_ITS | CCD ---
Author Organization [facility] Care Team Providers Care Drafter (Cad) Electrical Name Role Phone Ava Lundberg Unavailable Unavailable Primary Care Provider Unavailemanuel Sams RN, Erin Primary Care Provider Unavaildanielle Olivas MD, Rodney Unavailable Latrell EMERY, Erin Primary Care Provider Unavaildanielle Olivas MD, Rodney Unavailable Oanh DUPONT, PhD, Suman C Unavailable Cheikh Coelho MD Unavailable [phone] ERIN SAMS Primary Care Unavailable ISABEL ., DR TIMMY Sibley Admitting Unavaildanielle HALL ., DR TIMMY Sibley Consulting Unavaila ora HALL ., DR TIMMY Sibley Attending Unavaildanielle SAMS, ERIN Primary Care Unavailable ERIN SAMS Consulting Unavailable ERIN SAMS Attending Unavailable ERIN SAMS Admitting Unavailable ERIN SAMS Attending Unavailable JILLIAN, DR CAROLYN Quarles Consulting Unavailable LATRELL, ERIN Primary Care Unavailable ERIN SAMS Admitting Unavailable ERIN SAMS Consulting Unavailable LATRELL, ERIN Primary Care Unavailable IAN LOPEZ Admitting Unavailable IAN LOPEZ Attending Unavailable TIMMY SHAY Unavailable ELIAS ARMANDO Consulting Unavailable LATRELL, ERIN Primary Care Unavailable JILLIAN, DR CAROLYN Quarles Consulting Unavailable ERIN SAMS Attending Unavailable ERIN SAMS Admitting Unavailable ERIN SAMS Consulting Unavailable LATRELL, ERIN Primary Care Unavailable SARAHI OLIVA Attending Unavailable SARAHI OLIVA Admitting Unavailable SARAHI OLIVA Consulting Unavailable LATRELL, ERIN Primary Care Unavailable MISC, DR JACOBO Admitting Unavailable MISC, DR JACOBO Consulting Unavailable MISC, DR JACOBO Attending Unavailable LATRELL, ERIN Consulting Unavailable ERIN SAMS Attending Unavailable LATRELL, ERIN Admitting Unavailable LATRELL, ERIN Primary Care Unavailable MISC, DR JACOBO Admitting Unavailable LATRELL, ERIN Primary Care Unavailable MISC, DR JACOBO Attending Unavailable MISC, DR JACOBO Consulting Unavailable LATRELL, ERIN Consulting Unavailable LATRELL, ERIN Attending Unavailable LATRELL, ERIN Admitting Unavailable LATRELL, ERIN Primary Care Unavailable MISC, DR JACOBO Admitting Unavailable MISC, DR JACOBO Consulting Unavailable MISC, DR JACOBO Attending Unavailable LATRELL, ERIN Primary Care Unavailable [...] ble ZIEBTOREY, DR CAROLYN Quarles Consulting Unavailable CHAY ., DR CARMONA Consulting Unavailable AGUBOSIM, JOSÉ LUIS Consulting Unavailable MISC, DR JACOBO Admitting Unavailable LATRELL, ERIN Primary Care Unavailable MISC, DR JACOBO Consulting Unavailable MISC, DR JACOBO Attending Unavailable LATRELL, ERIN Consulting Unavailable LATRELL, ERIN Attending Unavailable LATRELL, ERIN Primary Care Unavailable LATRELL, ERIN Admitting Unavailable Deisy DUPONT, Rodney Unavailable Oanh DUPONT, PhD, Suman Naylor Unavailable [phone] Cheikh Coelho MD Unavailable [phone] Erin Sams CNP Primary Care Provider [...] Care Unavailable LATRELL, ERIN Primary Care Unavailable LATRELL, ERIN Primary Care Unavailable SUMAN BAKER Attending Unavailable SELF, SELF Referring Unavailable Unavailable Primary Care Provider Unavailabl e Alden, Ron Attending Unavailable Alden, Ron Admitting Unavailable ALDEN, RON Attending Unavailable LIZBET CAST Attending Unavailable ALDEN, RON Attending Unavailable ALDEN, RON Attending Unavailable ALDEN, RON Attending Unavailable ALDEN, RON Attending Unavailable ALDEN, RON Attending Unavailable LIZBET CAST Attending Unavailable Allergies Allergy Classification Reported Allergen(s) Allergy Type Date of Onset Reaction(s) Facility (10 sources) gabapentin Drug Allergy 10-07-2022 Nausea Only, Diarrhea [facility] Medications Current Medications Medication Drug Class(es) Dates Sig (Normalized) Sig (Original) amylase 065459 unt / lipase 83878 unt / protease 605997 unt delayed release oral capsule (8 sources) Start: 09-10-2022 Pancrelipase, Jkr-Nvfy-Vjpj, (Creon) 98317-847742 units Cap DR Particles Indications: Exocrine pancreatic [...] morning. 0 Active 500 ml albumin human, assisted 50 mg/ml injection (1 source) Human Serum [...] oral spray 2 spray polyethylene glycol 3350 95282 mg powder for oral solution (2 sources) Osmotic Laxative Start: 04-23-2022 End: 06-09-2022 polyethylene glycol 17 GM/SCOOP Powder powder 11 AM: Take entire contents over 2 hours as instructed. 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 09-25-2023 L Specimen: [id number] Received: 09/27/23 Status: MARIANNA Mosqueda Num: [id number] Spec Type: Surgical Subm Dr: Ron Ruano Tissues: A Placenta - 3rd Trimester (Greater than 28 weeks) (PLACENTA) Procedures: HE/3, Gross/Micro L5 Age/ Patient Sex Location Account Attending Physician Zainab Mcclure 28/F [place] [id number] Ron Ruano SPEC NUM: [id number] RECD: 09/27/23 STATUS: SOUParrish MOSQUEDA NUM: [id number] AUSTEN: 09/25/[address]: Ron Ruano ENTERED: 09/27/23 [facility] DR: Ron,Lab SPEC TYPE: Surgical DEPT: CARL BAEZ ORDERED: HE/3, Gross/Micro L5 ORDERED: HE/3, Gross/Micro L5 Pathological Diagnosis Placenta, section removal: -Mature third trimester placenta with three-vessel cord, weight 494 g -No evidence of acute chorioamnionitis, appendicitis, or villitis -No other significant histopathological changes, except 1 large incidental fibrin plaque at 1 edge of the disc, and minute foci or minor effect of meconium staining of the membrane Clinical Information Cephalopelvic disproportion; name mismatch : Zainab Swift per requisition, Zainab Mcclure in [place], same Gross Description Received in formalin labeled with the patient's name, date of and placenta is a 17.0 x 15.0 x 2.3 cm placenta with an attached umbilical cord and attached membranes that have been previously partially stripped from the surface.. The sarmiento-dickerson, semitranslucent membranes insert marginally over the disc. The 17.8 x 0.8 cm umbilical cord inserts paramarginally 2.0 cm from the closest disc margin and contains 3 vessels on cut section. The trimmed weight is 494 g. The surface is markedly hemorrhagic to purple- blue.. The maternal surface is dickerson-sarmiento and appears intact. The cut surface is spongy, red with a 1.3 cm yellow-sarmiento superficial lesional area replacing less than 1% of the cut surface of the placenta. Edi Programmer Analyst sections are submitted in 3 cassettes as follows: A1 - cord and central disc Specimen: [id number] Received: 09/27/23 Status: MARIANNA Mosqueda Num: [id number] Spec Type: Surgical Subm Dr: Ron Ruano Tissues: A Placenta - 3rd Trimester (Greater than 28 weeks) (PLACENTA) Procedures: Pedro WATT/Zack L5 Patient: Zainab Mcclure [id number] (Continued) Specimen: [id number] Received: 09/27/23 (Continued) Gross Description (Continued) Signed (signature on file) Hawk Stevens MD 09/28/232017 Specimen: [id number] Received: 09/27/23 Status: MARIANNA Mosqueda Num: [id number] Spec Type: Surgical Subm Dr: Ron Ruano Tissues: A Placenta - 3rd Trimester (Greater than 28 weeks) (PLACENTA) Procedures: Pedro WATT/Zack L5 Patient: Zainab Mcclure [id number] (Continued) Specimen: [id number] Received: 09/27/23 (Continued) Gross Description (Continued) A2 - membranes and marginal disc A3 - Superficial lesion CPT Codes 75318 Specimen: [id number] Received: 09/27/23 Status: MARIANNA Mosqueda Num: [id number] Spec Type: Surgical Subm Dr: Ron Ruano Tissues: A Placenta - 3rd Trimester (Greater than 28 weeks) (PLACENTA) Procedures: HE/3, Gross/Micro L5 Patient: Zainab Mcclure [id number] (Continued) Signed (signature on file) Hawk Stevens MD 09/28/232017 [facility] CHROMOGRANIN Aon 03-11-2023 Chromogranin A <20 Normal <93 [facility] Comment on above: Result Comment: ADDITIONAL INFORMATION This test was developed and its performance characteristics determined by [facility] in a manner consistent with CLIA [...] by [employer] and performed on the [employer] Kryptor Compact Plus. Values obtained with different assay methods or kits may be different and cannot be used interchangeably. Test results cannot be interpreted as absolute evidence for the presence or absence of malignant disease. Test Performed by: [facility] - [address] [address] Metal Drill Operator: Ed Russo M.D. Ph.D.; CLIA# [id number] Performed By: #### C A, RODRIGO, CHM7, MGO #### [facility] (DEFAULT) [address] [place] [address] MRI ABDOMEN/PELVIS WITHOUT C [facility] 03-11-2023 MRI ABDOMEN/PELVIS WITHOUT CONTRAST EXAM: [...] not well visualized on this exam. Normal [facility] IMPRESSION: 1. Stable postoperative changes from [...] is not well visualized on this exam. [facility] Radiology Study observation (narrative) [facility] MRI ABDOMEN/PELVIS WITHOUT C ONTRASTOrdered By: Mandi Montiel on 03-11-[address] [facility] Work Phone: CT ABDOMEN/PELVIS WITH AND W [...] nodes and have decreased in size. Normal [facility] CT CHEST WITH CONTRASTon CT CHEST [...] have reviewed and approved this report. Normal [facility] CT Chest W contrast Jason IMPRESSION: [...] I have reviewed and approved this report. [facility] CT Chest W contrast IVOrdere d By: Benjamin Santos on 10-23-[address] [facility] CT Chest W contrast Jason Radiology Study observation (narrative) [facility] CT NECK WITH CONTRASTon -0 CT NECK [...] mass or adenopathy in the neck. Normal [facility] CT Neck W contrast Jason 04-0 [...] for mass or adenopathy in the neck. [facility] Radiology Study observation (narrative) [facility] CT Neck W contrast IVOrdered By: Miguel Espinal on 10-22-[address] [facility] Work Phone: Cardiac echo study Procedure Ordered By: Guerrero Carvalho on 10-22-2022 Ao peak raj 1.26 m[facility] Work Phone: Ao VTI 19.98 [facility] Work Phone: Ascending [facility] 2.62 [facility] AV LVOT peak gradient [address] [facility] Work Phone: AV mean gradient 3 [facility]: AV peak gradient 6 mmHG [facility] Work Phone: AV valve area 2.24 cm2 [facility] Work Phone: AV Velocity Ratio 0.70 [facility] Work Phone: FRANK (continuity Vmax) 1.[address] [facility] Work Phone: FRANK (continuity VTI) 2.[address] [facility] Work Phone: FRANK index (continuity Vmax) 1.06 m/s [facility] Work Phone: FRANK index (continuity VTI) 1.30 cm2/m2 [facility] Work Phone: Avg e' pk raj 0.15 m/s [facility] Work Phone: Avg E/e' ratio 4.89 [facility] Work Phone: Body surface area Derived from formula 1.72 m2 [facility] Work Phone: BP EF 62 % [facility] Work Phone: DI (Vmax) 0.[address] [facility] Work Phone: DI (VTI) 0.86 m/2 [facility] Work Phone: E wave decelartion time 217.58 msec [facility] Work Phone: e' lateral pk raj 0.1597 m/s [facility] Work Phone: e' lateral pk raj 0.16 m/s [facility] Work Phone: e' septal pk raj 0.1401 m/s [facility]: e' septal pk raj 0.14 m/s [facility] Work Phone: E/A ratio 0.[address] [facility] Work Phone: E/e' lateral [facility] 4.57 [facility]: E/e' septal ratio 5.21 [facility] Work Phone: EF SP 2CH 64 [facility] Work Phone: EF SP 4CH 59 [facility] Work Phone: FS 33 % 28 - 44 % [facility] Work Phone: IVC ostium 1.46 cm [facility] Work Phone: IVS 0.61 cm [facility] Work Phone: LA AREA 2CH 13.72 cm2 [facility] Work Phone: LA area 4CH 9.33 cm2 [facility] Work Phone: LA ESV BP (MOD) 29 mL [facility] Work Phone: LA ESV BP (MOD) index 17 mL/m2 [facility] Work Phone: LA ESV SP 2CH (MOD) 37 mL [facility] Work Phone: LA ESV SP 4CH (MOD) 19 mL [facility] Work Phone: Long Strain -21.7 % [facility] Work Phone: LV EDV BP 71 mL [facility] Work Phone: LV EDV SP 2CH 76 mL [facility] Work Phone: LV EDV SP 4CH 61 mL [facility] Work Phone: LV ESV BP 27 mL [facility] Work Phone: LV ESV SP 2CH 27 mL [facility] Work Phone: LV ESV SP 4CH 25 mL [facility] Work Phone: LV mass 68.53 g [facility] Work Phone: LV Mass Index 39.8 g/m2 [facility] Work Phone: LV RWT 0.30 [facility] Work Phone: LV stroke volume BP (ml) 44 mL [facility] Work Phone: LV stroke volume index BP 25.58 mL/m2 [facility] Work Phone: LVIDD 4.10 cm [facility] Work Phone: LVIDS 2.[address] [facility] Work Phone: LVOT area 2.[address] [facility] Work Phone: LVOT diameter 1.82 cm [facility] Work Phone: LVOT peak raj 0.88 m/s [facility] Work Phone: LVOT peak VTI 17.[address] [facility] Work Phone: LVOT stroke volume 45 cm3 [facility] Work Phone: LVOT stroke volume index 25.99 ml/m2 [facility] Work Phone: MV pk A raj 0.98 m/s [facility] Work Phone: MV pk E raj 0.73 m/s [facility] Work Phone: MV stenosis pressure 1/2 time 63.[address] [facility] Work Phone: MV valve area p 1/2 method 3.[address] [facility] Work Phone: OSU AV VTI RATIO PRE STRESS 0.[address] [facility] Work Phone: OSU ECHO LV BIPLANE SYSTOLIC VOLUME INDEX 15.70 mL/m2 [facility] Work Phone: OSU ECHO LV BP DIASTOLIC VOLUME INDEX 41.28 mL/m2 [facility] Work Phone: PV peak gradient 4 mmHg [facility] Work Phone: PV PK RAJ 0.97 m/s [facility] Work Phone: PW 0.[address] [facility] Work Phone: RA vol index 4CH (MOD) 12.79 mL/m2 [facility] Work Phone: Right atrium volume 4 chamber method of disks [address] [facility] Work Phone: RV Area diastolic 21.85 cm2 [facility] Work Phone: RV Area systolic 11.51 cm2 [facility] Work Phone: RV basal diam 3.[address] [facility] Work Phone: RV Fractional area change 47.3 % [facility] Work Phone: RV long diam 7.[address] [facility] Work Phone: RV Long Strain -28.0 % [facility] Work Phone: RV mid diam 2.[address] [facility] Work Phone: RV S' 12.55 cm/s [facility] Work Phone: RVOT peak gradient 1 mmHg [facility] Work Phone: RVOT peak raj 0.59 m/s [facility] Work Phone: Sinus 2.[address] [facility] Work Phone: STJ 2.[address] [facility] Work Phone: Stroke Volume 45 cm/mL [facility] Work Phone: Stroke volume [facility] Work [facility]: TAPSE 2.[address] [facility] Work Phone: [facility] Work Phone: Cardiac echo study Procedure on [...] ventricular strain) was performed. Imaging system used: [employer]. Indications Indications for study: chest pain, other, tachycardia and shortness of breath - Neuroendocrine tumor, LAMN. Wall Scoring Score Index: 1.00 The left ventricular wall motion is normal. [facility] Radiology Study observation (narrative) [facility] ECHOCARDIOGRAMon 10-22-2022 Echocardiography ? Left Ventricle: Chamber [...] Role Read Date Guerrero Carvalho MD [place] [employer], Echo Mentor 10/22/2022 Wall Scoring Score Index: 1.00 The [...] RA vol (more content not included)... Normal [facility] B-TYPE NATRIURETIC PEPTIDE ( BRAIN)on 10-07-2022 Interpretation and review of laboratory results Normal [facility] Natriuretic peptide B (Bld) [Mass/Vol] 4 pg/mL 0 - 100 pg/mL [facility] Natriuretic peptide B (Bld) [Mass/Vol] 4 pg/mL Normal 0-100 [facility] Comment on above: Performed By: #### RODRIGO Rangel, CHM7, MGO #### [facility] (DEFAULT) [address] [address] CBC AND ELECTRONIC DIFFon Basophils (Bld) [#/Vol] 0.04 10*3/uL Normal 0.00-0.15 [facility] Comment on above: Performed By: #### RODRIGO Rangel, CHM7, MGO #### [facility] (DEFAULT) [address] [place] [address] Basophils/100 WBC (Bld) 0.6 % Normal [facility] Comment on above: Performed By: #### RODRIGO Rangel, CHM7, MGO #### [facility] (DEFAULT) [address] [place] [address] DIFF STATUS Electronic Differential Normal [facility] Comment on above: Performed By: #### RODRIGO Rangel, CHM7, MGO #### [facility] (DEFAULT) [address] [place] [address] Eosinophils (Bld) [#/Vol] 0.18 10*3/uL Normal 0.00-0.42 [facility] Comment on above: Performed By: #### RODRIGO Rangel CHM7, MGO #### [facility] (DEFAULT) [address] [place] [address] Eosinophils/100 WBC (Bld) 2.5 % Normal [facility] Comment on above: Performed By: #### RODRIGO Rangel CHM7, MGO #### [facility] (DEFAULT) [address] [place] [address] Hematocrit (Bld) [Volume fraction] 39.3 % Normal 34.9-44.3 [facility] Comment on above: Performed By: #### RODRIGO Rangel CHM7, MGO #### [facility] (DEFAULT) [address] [place] [address] Hemoglobin (Bld) [Mass/Vol] 12.5 g/dL Normal 11.4-15.2 [facility] Comment on above: Performed By: #### RODRIGO Rangel CHM7, MGO #### [facility] (DEFAULT) [address] [place] [address] Immature Grans % 0.4 % Normal [facility] Comment on above: Performed By: #### RODRIGO Rangel CHMRenee, MGO #### [facility] (DEFAULT) [address] [place] [address] Immature Grans Absolute < Normal <=0.08 [facility] Comment on above: Performed By: #### RODRIGO Rangel CHM7, MGO #### [facility] (DEFAULT) [address] [place] [address] Lymphocytes (Bld) [#/Vol] 2.19 10*3/uL Normal 1.16-3.51 [facility] Comment on above: Performed By: #### RODRIGO Rangel CHM7, MGO #### [facility] (DEFAULT) [address] [place] [address] Lymphocytes/100 WBC (Bld) 30.6 % Normal [facility] Comment on above: Performed By: #### C A, IPB, CHM7, MGO #### [facility] (DEFAULT) [address] [place] [address] MCV (RBC) [Entitic vol] 84.2 fL Normal 79.6-97.7 [facility] Comment on above: Performed By: #### C A, IPB, CHM7, MGO #### [facility] (DEFAULT) [address] [place] [address]268 Mean Cell Hgb 26.8 pg Normal 25.9-33.9 [facility] Comment on above: Performed By: #### C A, IPB, CHM7, MGO #### [facility] (DEFAULT) [address] [place] [address] Mean Cell Hgb Conc 31.8 g/dL Normal 31.4-35.9 [facility] Comment on above: Performed By: #### C A, IPB, CHM7, MGO #### [facility] (DEFAULT) [address] [place] [address] Monocytes (Bld) [#/Vol] 0.50 10*3/uL Normal 0.22-0.87 [facility] Comment on above: Performed By: #### C A, IPB, CHM7, MGO #### [facility] (DEFAULT) [address] [place] [address] Monocytes/100 WBC (Bld) 7.0 % Normal [facility] Comment on above: Performed By: #### C A, IPB, CHM7, MGO #### [facility] (DEFAULT) [address] [place] [address] Nucleated RBC 0.0 /100 WBC Normal <=0.2 [facility] Comment on above: Performed By: #### C A, IPB, CHM7, MGO #### [facility] (DEFAULT) [address] [place] [address] 68797 Platelet mean volume (Bld) [Entitic vol] 9.5 fL Normal 8.5-12.2 [facility] Comment on above: Performed By: #### C A, IPB, CHM7, MGO #### [facility] (DEFAULT) [address] [place] [address] 15466 Platelets (Bld) [#/Vol] 355 10*3/uL Normal 150-393 [facility] Comment on above: Performed By: #### C A, IPB, CHM7, MGO #### [facility] (DEFAULT) [address] [place] [address] 9[address]30 RBC (Bld) [#/Vol] 4.67 10*6/uL Normal 3.91-5.04 [facility] Comment on above: Performed By: #### C A, IPB, CHM7, MGO #### [facility] (DEFAULT) [address] [place] [address] 01658 RBC Distribution 13.2 % Normal 10.8-14.9 [facility] Comment on above: Performed By: #### C A, IPB, CHM7, MGO #### [facility] (DEFAULT) [address] [place] [address]18 Segs + Bands Auto 58.9 % Normal [facility] Comment on above: Performed By: #### C A, IPB, CHM7, MGO #### [facility] (DEFAULT) [address] [place] [address] Segs + Bands,Absolute Auto 4.22 K/uL Normal 1.64-7.28 [facility] Comment on above: Performed By: #### C A, IPB, CHM7, MGO #### [facility] (DEFAULT) [address] [place] [address] 38674 WBC (Bld) [#/Vol] 7.16 10*3/uL Normal 3.99-11.19 [facility] Comment on above: Performed By: #### C RODRIGO Santos, CHM7, MGO #### [facility] (DEFAULT) [address] [place] [address] CHROMOGRANIN Aon 10-07-2022 Chromogranin A <20 Normal <93 [facility] Comment on above: Result Comment: ADDITIONAL INFORMATION This test was developed and its performance characteristics determined by [facility] in a manner consistent with CLIA [...] a homogeneous time-resolved immunofluorescent assay manufactured by [employer] and performed on the [employer] Kryptor Compact Plus. Values obtained with different assay methods or kits may be different and cannot be used interchangeably. Test results cannot be interpreted as absolute evidence for the presence or absence of malignant disease. Test Performed by: [place] [id number] Metal Drill Operator: Ed Russo M.D. Ph.D.; CLIA# [id number] Performed By: #### Y CHGRA #### [facility] (DEFAULT) [address] [place] [address] COMPREHENSIVE METABOLIC PANE Shamir 10-07-2022 Albumin [Mass/Vol] 4.7 g/dL Normal 3.5-5.0 [facility] Comment on above: Performed By: #### Y CHGRA #### [facility] (DEFAULT) [address] [place] [address] ALP [Catalytic activity/Vol] 53 U/L Normal 32-126 [facility] Comment on above: Performed By: #### Y CHGRA #### [facility] (DEFAULT) [address] [place] [address]7085 ALT [Catalytic activity/Vol] 25 U/L Normal 9-48 [facility] Comment on above: Performed By: #### Y CHGRA #### [facility] (DEFAULT) [address] [place] [address] 09358 Anion gap [Moles/Vol] 12 mmol/L Normal 7-17 [facility] Comment on above: Performed By: #### Y CHGRA #### [facility] (DEFAULT) [address] [place] [address] 38621 AST [Catalytic activity/Vol] 16 U/L Normal 10-39 [facility] Comment on above: Performed By: #### Y CHGRA #### [facility] (DEFAULT) [address] [place] [address] 54475 Bilirubin [Mass/Vol] 0.4 mg/dL Normal <1.5 [facility] Comment on above: Performed By: #### Y CHGRA #### [facility] (DEFAULT) [address] [place] [address] 87896 Calcium [Mass/Vol] 9.5 mg/dL Normal 8.6-10.5 [facility] Comment on above: Performed By: #### Y CHGRA #### [facility] (DEFAULT) [address] [place] [address] 32828 Chloride [Moles/Vol] 101 mmol/L Normal 98-108 [facility] Comment on above: Performed By: #### Y CHGRA #### [facility] (DEFAULT) [address] [place] [address] 80042 CO2 [Moles/Vol] 28 mmol/L Normal 21-31 [facility] Comment on above: Performed By: #### Y CHGRA #### [facility] (DEFAULT) [address] [place] [address] 34333 Creatinine [Mass/Vol] 0.66 mg/dL Normal 0.50-1.20 [facility] Comment on above: Performed By: #### Y CHGRA #### [facility] (DEFAULT) [address] [address] eGFR, CKD-EPI, Female > Normal >=60 [facility] Comment on above: Result Comment: Repo rted eGFR is based on the CKD-EPI 2020 equation using creatinine, age, and sex. Performed By: #### Y CHGRA #### [facility] (DEFAULT) [address] [address] Glucose [Mass/Vol] 103 mg/dL High 70-99 [facility] Comment on above: Performed By: #### Y CHGRA #### [facility] (DEFAULT) [address] [place] [address] 13490 Osmolality [Osmolality] 286 mosm/kg Normal 278-305 [facility] Comment on above: Performed By: #### Y CHGRA #### [facility] (DEFAULT) [address] [address] Potassium [Moles/Vol] 4.0 mmol/L Normal 3.5-5.0 [facility] Comment on above: Performed By: #### Y CHGRA #### [facility] (DEFAULT) [address] [place] [address]3855 Protein [Mass/Vol] 7.6 g/dL Normal 6.4-8.3 [facility] Comment on above: Performed By: #### Y CHGRA #### [facility] (DEFAULT) [address] [address] Sodium [Moles/Vol] 137 mmol/L Normal 135-145 [facility] Comment on above: Performed By: #### Y CHGRA #### [facility] (DEFAULT) [address] [place] [address] 24047 Urea nitrogen [Mass/Vol] 9 mg/dL Normal 7-25 [facility] Comment on above: Performed By: #### Y RAEANNA #### [facility] (DEFAULT) [address] [place] [address] 78023 Urea nitrogen/Creatinine [Mass ratio] 14 mg/mg Normal [facility] Comment on above: Performed By: #### Y RAEANNA #### [facility] (DEFAULT) [address] [place] [address] HIGH SENSITIVITY TROPONIN I - SINGLE ORDERon 10-07-2022 Interpretation and review of laboratory results Normal [facility] Troponin I.cardiac High sensitivity method [Mass/Vol] ng/L NINF - 34 ng/L [facility] [place] hs-Troponin I <3 Normal <34 [facility] Comment on above: Order Comment: Acute Coronary Syndrome (ACS): Initial Evaluation and Management:[email or web address]/Documents/Guidel [email or web address]%20Coronary%[email or web address]#search=[email or web address] Performed By: #### C Danielle, RODRIGO, CHM7, MGO #### [facility] (DEFAULT) [address] [address] LACTATE DEHYDROGENASEon 09-17 LD Total 114 U/L Normal 100-190 [facility] Comment on above: Performed By: #### Y RAEANNA #### [facility] (DEFAULT) [address] [address] MONOon 10-02-2022 Monocytes (Bld) [#/Vol] Negative Normal NEGATIVE [facility] Comment on above: Performed By: #### L JJ LDH, BMP #### [facility] [address] [address] [address] Esthela Stevens CBC AUTO DIFFon 09-30-2022 BASO # 0.1 103/ul Normal 0.0-0.1 [facility] Comment on above: Performed By: #### L JJ LDH, BMP #### [facility] [address] [place] [address] Dr. Esthela Stevens Basophils/100 WBC (Bld) 0.8 % Normal 0.2-2.0 [facility] Comment on above: Performed By: #### L IVER, LDH, BMP #### [facility] [address] [place] [address] Dr. Esthela Stevens EO # 0.1 103/ul Normal 0.0-0.7 [facility] Comment on above: Performed By: #### L IVER, LDH, BMP #### [facility] [address] [place] [address] Dr. Esthela Stevens Eosinophils/100 WBC (Bld) 1.7 % Normal 0.9-7.0 [facility] Comment on above: Performed By: #### L IVER, LDH, BMP #### [facility] [address] [place] [address] Dr. Esthela Stevens Erythrocyte distribution width (RBC) [Ratio] 13.1 % Normal 11.0-15.0 [facility] Comment on above: Performed By: #### L IVER, LDH, BMP #### [facility] [address] [place] [address] Dr. Esthela Stevens Hematocrit (Bld) [Volume fraction] 38.4 % Normal 36.0-48.0 [facility] Comment on above: Performed By: #### L IVER, LDH, BMP #### [facility] [address] [place] [address] Dr. Esthela Stevens Hemoglobin (Bld) [Mass/Vol] 12.4 g/dL Normal 12.0-16.0 [facility] Comment on above: Performed By: #### L IVER, LDH, BMP #### [facility] [address] [place] [address] Dr. Esthela Stevens IG # 0.02 10e3/ul Normal 0.00-0.03 [facility] Comment on above: Performed By: #### L IVER, LDH, BMP #### [facility] [address] [place] [address] Dr. Esthela Stevens IG % 0.3 % Normal 0.0-0.5 [facility] Comment on above: Performed By: #### L IVER, LDH, BMP #### [facility] [address] [place] [address] Dr. Esthela Stevens LYMPH # 2.2 103/ul Normal 1.2-3.8 [facility] Comment on above: Performed By: #### L IVER, LDH, BMP #### [facility] [address] [place] [address] Dr. Esthela Stevens Lymphocytes/100 WBC (Bld) 32.8 % Normal 20.5-60.0 [facility] Comment on above: Performed By: #### L IVER, LDH, BMP #### [facility] [address] [place] [address] Dr. Esthela Stevens MANUAL DIFF REQ NO Normal [facility] Comment on above: Performed By: #### L IVER, LDH, BMP #### [facility] [address] [place] [address] Dr. Esthela Stevens MCH (RBC) [Entitic mass] 27.1 pg Normal 26.7-34.0 [facility] Comment on above: Performed By: #### L IVER, LDH, BMP #### [facility] [address] [place] [address] Dr. Esthela Stevens MCHC (RBC) [Mass/Vol] 32.3 g/dL Normal 29.9-35.2 [facility] Comment on above: Performed By: #### L IVER, LDH, BMP #### [facility] [address] [place] [address] Dr. Esthela Stevens MCV (RBC) [Entitic vol] 83.8 fL Normal 81.0-99.0 [facility] Comment on above: Performed By: #### L IVER, LDH, BMP #### [facility] [address] [place] [address] Dr. Esthela Stevens MONO # 0.5 103/ul Normal 0.3-0.8 [facility] Comment on above: Performed By: #### L IVER, LDH, BMP #### [facility] [address] [place] [address] Dr. Esthela Stevens Monocytes/100 WBC (Bld) 8.0 % Normal 1.7-12.0 [facility] Comment on above: Performed By: #### L IVER, LDH, BMP #### [facility] [address] [place] [address] Dr. Esthela Stevens NEUT # 3.7 103/ul Normal 1.4-6.5 [facility] Comment on above: Performed By: #### L IVER, LDH, BMP #### [facility] [address] [place] [address] Dr. Esthela Stevens Neutrophils/100 WBC (Bld) 56.4 % Normal 43.0-75.0 [facility] Comment on above: Performed By: #### L IVER, LDH, BMP #### [facility] [address] [place] [address] Dr. Esthela Stevens Platelet mean volume (Bld) [Entitic vol] 9.3 fL Critically low 9.5-13.5 [facility] Comment on above: Performed By: #### L IVER, LDH, BMP #### [facility] [address] [place] [address] Dr. Esthela Stevens PLT 334 103/ul Normal 150-450 [facility] Comment on above: Performed By: #### L IVER, LDH, BMP #### [facility] [address] [place] [address] Dr. Esthela Stevens RBC 4.58 106/ul Normal 4.20-5.40 [facility] Comment on above: Performed By: #### L IVER, LDH, BMP #### [facility] [address] [place] [address] Dr. Esthela Stevens WBC 6.6 103/ul Normal 4.0-11.0 [facility] Comment on above: Performed By: #### L IVER, LDH, BMP #### [facility] [address] [place] [address] Dr. Esthela Stevens LDHon 09-30-2022 LDH 122 U/L Normal 81-234 [facility] Comment on above: Performed By: #### L IVER, LDH, BMP #### [facility] [address] [place] [address] Dr. Esthela Stevens LIVER PROFILEon 09-30-2022 Albumin [Mass/Vol] 4.1 g/dL Normal 3.4-5.0 [facility] Comment on above: Performed By: #### L IVER, LDH, BMP #### [facility] [address] [address] [address] Esthela Stevens Albumin/Globulin [Mass ratio] 1.2 {ratio} Normal [facility] Comment on above: Performed By: #### L IVER, LDH, BMP #### [facility] [address] [place] [address] Dr. Esthela Stevens ALP [Catalytic activity/Vol] 75 U/L Normal 46-116 [facility] Comment on above: Performed By: #### L IVER, LDH, BMP #### [facility] [address] [place] [address] Dr. Esthela Stevens ALT [Catalytic activity/Vol] 41 U/L Normal 14-59 [facility] Comment on above: Performed By: #### L IVER, LDH, BMP #### [facility] [address] [place] [address] Dr. Esthela Stevens AST [Catalytic activity/Vol] 30 U/L Normal 15-37 [facility] Comment on above: Performed By: #### L IVER, LDH, BMP #### [facility] [address] [place] [address] Dr. Esthela Stevens BILI, CONJUGATED 0.1 mg/dL Normal 0.0-0.2 [facility] Comment on above: Performed By: #### L IVER, LDH, BMP #### [facility] [address] [place] [address] Dr. Esthela Stevens Bilirubin [Mass/Vol] 0.5 mg/dL Normal 0.2-1.0 [facility] Comment on above: Performed By: #### L IVER, LDH, BMP #### [facility] [address] [address] [address] Esthela Stevens Globulin (S) [Mass/Vol] 3.3 g/dL Normal [facility] Comment on above: Performed By: #### L IVER, LDH, BMP #### [facility] [address] [place] [address] Dr. Esthela Stevens Protein [Mass/Vol] 7.4 g/dL Normal 6.4-8.2 [facility] Comment on above: Performed By: #### L IVER, LDH, BMP #### [facility] [address] [place] [address] Dr. Esthela Stevens PROF CHEM 8 (BAS METB)on Anion gap [Moles/Vol] 9.2 mmol/L Normal [facility] Comment on above: Performed By: #### L IVER, LDH, BMP #### [facility] [address] [place] [address] Dr. Esthela Stevens Calcium [Mass/Vol] 9.0 mg/dL Normal 8.5-10.1 [facility] Comment on above: Performed By: #### L IVER, LDH, BMP #### [facility] [address] [place] [address] Dr. Esthela Stevens Chloride [Moles/Vol] 102 mmol/L Normal 98-107 [facility] Comment on above: Performed By: #### L IVER, LDH, BMP #### [facility] [address] [place] [address] Dr. Esthela Stevens CO2 [Moles/Vol] 27.8 mmol/L Normal 21.0-32.0 [facility] Comment on above: Performed By: #### L IVER, LDH, BMP #### [facility] [address] [place] [address] Dr. Esthela Stevens Creatinine [Mass/Vol] 0.63 mg/dL Normal 0.55-1.02 [facility] Comment on above: Performed By: #### L IVER, LDH, BMP #### [facility] [address] [place] [address] Dr. Esthela Stevens EGFR-AF SAUDI ARABIAN >60 Normal >=60 [facility] Comment on above: Performed By: #### L IVER, LDH, BMP #### [facility] [address] [address] [address] Esthela Stevens EGFR-NON AF SAUDI ARABIAN >60 Normal >=60 [facility] Comment on above: Performed By: #### L IVER, LDH, BMP #### [facility] [address] [address] [address] Esthela Stevens Glucose [Mass/Vol] 106 mg/dL Normal 74-106 [facility] Comment on above: Performed By: #### L IVER, LDH, BMP #### [facility] [address] [address] [address] Esthela Stevens Potassium [Moles/Vol] 4.0 mmol/L Normal 3.5-5.1 [facility] Comment on above: Performed By: #### L IVER, LDH, BMP #### [facility] [address] [place] [address] Dr. Esthela Stevens Sodium [Moles/Vol] 135 mmol/L Critically low 136-145 [facility] Comment on above: Performed By: #### L IVER, LDH, BMP #### [facility] [address] [place] [address] Dr. Esthela Stevens Urea nitrogen [Mass/Vol] 9.0 mg/dL Normal 7.0-18.0 [facility] Comment on above: Performed By: #### L IVER, LDH, BMP #### [facility] [address] [place] [address] Dr. Esthela Stevens Urea nitrogen/Creatinine [Mass ratio] 14.3 mg/mg Normal [facility] Comment on above: Performed By: #### L IVER, LDH, BMP #### [facility] [address] [place] [address] Dr. Esthela Stevens MG MAMM DIAGNOSTIC 3D EFREN CA Don 09-23-2022 MG MAMM DIAGNOSTIC 3D EFREN CAD Patient: ZAINAB SWIFT Exam Date: 09/23/2022 : 1995 Gender:F Ordering : [facility] Admission #: [id number] Family : Order #: [id number] CLICK HERE TO VIEW EXAM RADIOLOGY REPORT [...] cervical cancer at age 42. LOCATION: [facility] BREAST COMPOSITION: Extremely dense, which lowers [...] M.D. on 09/23/2022 at 11:31 Normal [facility] US BREAST EFREN LIMITEDon 03-0 US BREAST EFREN LIMITED Patient: ZAINAB SWIFT Exam Date: 09/23/2022 : 1995 Gender:F Ordering : [facility] Admission #: [id number] Family : Order #: [id number] CLICK HERE TO VIEW EXAM RADIOLOGY REPORT [...] cervical cancer at age 42. LOCATION: [facility] BREAST COMPOSITION: Extremely dense, which lowers [...] M.D. on 09/23/2022 at 11:31 Normal [facility] Covid-19 PCR (CVDTBH)on 08-20 SARS-CoV-2 (COVID-19) RNA JORGE LUIS+probe Ql (Unsp spec) Not detected Normal NOT DETECTED [facility] Comment on above: Result Comment: When [...] for this test is supported by the [employer]ocket [employer] Tester of Health and Human Service's declaration [...] used). Performed By: #### P REG #### [facility] [address] [place] [address] Dr. Esthela Stevens INFLUENZA A AND B AGon 09-15 [facility] SEE BELOW Normal [facility] Comment on above: Result Comment: Nega tive for Flu A protein angiten. Infection due to Flu A cannot be ruled out. Flu A angiten in the sample may be below the detection limit of the test. Performed By: #### L IVER, LDH, BMP #### [facility] [address] [place] [address] Dr. Esthela Stevens INFLUBNEG SEE BELOW Normal [facility] Comment on above: Result Comment: Nega tive for Flu B protein antigen. Infection due to Flu B cannot be ruled out. Flu B antigen in the sample may be below the detection limit of the test. Performed By: #### L IVER, LDH, BMP #### [facility] [address] [place] [address] Dr. Esthela Stevens INFLUENZA A AG Negative Normal NEGATIVE SEE COMMENT [facility] Comment on above: Performed By: #### L IVER, LDH, BMP #### [facility] [address] [place] [address] Dr. Esthela Stevens INFLUENZA B AG Negative Normal NEGATIVE SEE COMMENT [facility] Comment on above: Performed By: #### L IVER, LDH, BMP #### [facility] [address] [place] [address] Dr. Esthela Stevens HUNTER by IFAon 09-04-2022 Antinuclear Antibodies, IFA Positive Abnormal [facility] Comment on above: Result Comment: Nega tive <1:80 Borderline 1:80 Positive >1:80 Performed By: #### P REG #### [facility] [address] [place] [address] Dr. Esthela Stevens Centriole Pattern Normal [facility] Comment on above: Performed By: #### P REG #### [facility] [address] [place] [address] Dr. Esthela Stevens Centromere Pattern Normal [facility] Comment on above: Performed By: #### P REG #### [facility] [address] [address] [address] Esthela Stevens Homogeneous Pattern 1:160 Critically high [facility] Comment on above: Result Comment: ICAP nomenclature: AC-1 Performed By: #### P REG #### [facility] [address] [address] [address] Esthela Stevens Midbody Pattern Normal [facility] Comment on above: Performed By: #### P REG #### [facility] [address] [address] [address] Esthela Stevens Note: Comment Normal [facility] Comment on above: Result Comment: For [...] titers Nucleosomes, Histones Drug-induced SLE Speckled Sm, BOX WORKER, SCL-70, SLE,MCTD,PSS (diffuse form), SS-A/SS-B Sjogrens Nucleolar SCL-70, PM-1/SCL High titers Scleroderma, PM/DM Centromere Centromere PSS (limited form) w/Crest syndrome variable Nuclear Dot [id number] Primary Biliary Cirrhosis Nuclear GP210, Primary Biliary Cirrhosis Membrane italia A,B,C Performed By: #### P REG #### [facility] [address] [place] [address] Dr. Esthela Stevens Nuclear Dot Pattern Normal [facility] Comment on above: Performed By: #### P REG #### [facility] [address] [place] [address] Dr. Esthela Stevens Nuclear Membrane Pattern Normal [facility] Comment on above: Performed By: #### P REG #### [facility] [address] [place] [address] Dr. Esthela Stevens Nucleolar Pattern Normal [facility] Comment on above: Performed By: #### P REG #### [facility] [address] [place] [address] Dr. Esthela Stevens PCNA Pattern Normal [facility] Comment on above: Performed By: #### P REG #### [facility] [address] [place] [address] Dr. Esthela Stevens Speckled Pattern Normal [facility] Comment on above: Performed By: #### P REG #### [facility] [address] [place] [address] Dr. Esthela Stevens Spindle Apparatus Pattern Normal [facility] Comment on above: Performed By: #### P REG #### [facility] [address] [place] [address] Dr. Esthela Stevens ANTISTREPTOLYSIN O AB (ASO)o n 09-01-2022 Antistreptolysin O Ab 58.8 IU/mL Normal 0.0-200.0 [facility] Comment on above: Performed By: #### L IVER, LDH, BMP #### [facility] [address] [place] [address] Dr. Esthela Stevens INSULINon 09-01-2022 Insulin 12.2 uIU/mL Normal 2.6-24.9 [facility] Comment on above: Performed By: #### I NSULIN #### [facility] [address] [place] [address] Dr. Esthela Stevens RHEUMATOID FACTORon 09-01-19 RA Latex Turbid. <10.0 Normal <14.0 [facility] Comment on above: Performed By: #### L IVER, LDH, BMP #### [facility] [address] [place] [address] Dr. Esthela Stevens CBC AUTO DIFFon 08-31-2022 BASO # 0.0 103/ul Normal 0.0-0.1 [facility] Comment on above: Performed By: #### P REG #### [facility] [address] [place] [address] Dr. Esthela Stevens Basophils/100 WBC (Bld) 0.6 % Normal 0.2-2.0 [facility] Comment on above: Performed By: #### P REG #### [facility] [address] [place] [address] Dr. Esthela Stevens EO # 0.1 103/ul Normal 0.0-0.7 [facility] Comment on above: Performed By: #### P REG #### [facility] [address] [place] [address] Dr. Esthela Stevens Eosinophils/100 WBC (Bld) 1.5 % Normal 0.9-7.0 [facility] Comment on above: Performed By: #### P REG #### [facility] [address] [place] [address] Dr. Esthela Stevens Erythrocyte distribution width (RBC) [Ratio] 12.7 % Normal 11.0-15.0 [facility] Comment on above: Performed By: #### P REG #### [facility] [address] [place] [address] Dr. Esthela Stevens Hematocrit (Bld) [Volume fraction] 38.4 % Normal 36.0-48.0 [facility] Comment on above: Performed By: #### P REG #### [facility] [address] [place] [address] Dr. Esthela Stevens Hemoglobin (Bld) [Mass/Vol] 12.7 g/dL Normal 12.0-16.0 [facility] Comment on above: Performed By: #### P REG #### [facility] [address] [place] [address] Dr. Esthela Stevens IG # 0.02 10e3/ul Normal 0.00-0.03 [facility] Comment on above: Performed By: #### P REG #### [facility] [address] [place] [address] Dr. Esthela Stevens IG % 0.3 % Normal 0.0-0.5 [facility] Comment on above: Performed By: #### P REG #### [facility] [address] [place] [address] Dr. Esthela Stevens LYMPH # 2.0 103/ul Normal 1.2-3.8 [facility] Comment on above: Performed By: #### P REG #### [facility] [address] [place] [address] Dr. Esthela Stevens Lymphocytes/100 WBC (Bld) 31.2 % Normal 20.5-60.0 [facility] Comment on above: Performed By: #### P REG #### [facility] [address] [place] [address] Dr. Esthela Stevens MANUAL DIFF REQ NO Normal [facility] Comment on above: Performed By: #### P REG #### [facility] [address] [place] [address] Dr. Esthela Stevens MCH (RBC) [Entitic mass] 27.1 pg Normal 26.7-34.0 [facility] Comment on above: Performed By: #### P REG #### [facility] [address] [place] [address] Dr. Esthela Stevens MCHC (RBC) [Mass/Vol] 33.1 g/dL Normal 29.9-35.2 [facility] Comment on above: Performed By: #### P REG #### [facility] [address] [place] [address] Dr. Esthela Stevens MCV (RBC) [Entitic vol] 82.1 fL Normal 81.0-99.0 [facility] Comment on above: Performed By: #### P REG #### [facility] [address] [place] [address] Dr. Esthela Stevens MONO # 0.4 103/ul Normal 0.3-0.8 [facility] Comment on above: Performed By: #### P REG #### [facility] [address] [place] [address] Dr. Esthela Stevens Monocytes/100 WBC (Bld) 6.4 % Normal 1.7-12.0 [facility] Comment on above: Performed By: #### P REG #### [facility] [address] [place] [address] Dr. Esthela Stevens NEUT # 3.9 103/ul Normal 1.4-6.5 [facility] Comment on above: Performed By: #### P REG #### [facility] [address] [place] [address] Dr. Esthela Stevens Neutrophils/100 WBC (Bld) 60.0 % Normal 43.0-75.0 [facility] Comment on above: Performed By: #### P REG #### [facility] [address] [place] [address] Dr. Esthela Stevens Platelet mean volume (Bld) [Entitic vol] 9.2 fL Critically low 9.5-13.5 [facility] Comment on above: Performed By: #### P REG #### [facility] [address] [place] [address] Dr. Esthela Stevens PLT 390 103/ul Normal 150-450 [facility] Comment on above: Performed By: #### P REG #### [facility] [address] [place] [address] Dr. Esthela Stevens RBC 4.68 106/ul Normal 4.20-5.40 [facility] Comment on above: Performed By: #### P REG #### [facility] [address] [place] [address] Dr. Esthela Stevens WBC 6.5 103/ul Normal 4.0-11.0 [facility] Comment on above: Performed By: #### P REG #### [facility] [address] [place] [address] Dr. Esthela Stevens CRPon 08-31-2022 CRP [Mass/Vol] mg/L Normal <=1.0 [facility] Comment on above: Performed By: #### L IVER, LDH, BMP #### [facility] [address] [place] [address] Dr. Esthela Stevens FREE THYROXINE INDEX T7on FTI 2.94 Normal 1.30-4.50 [facility] Comment on above: Performed By: #### L IVER, LDH, BMP #### [facility] [address] [place] [address] Dr. Esthela Stevens T3U 33.0 % Normal 30.0-39.0 [facility] Comment on above: Performed By: #### L IVER, LDH, BMP #### [facility] [address] [place] [address] Dr. Esthela Stevens T4 [Mass/Vol] 8.90 ug/dL Normal 4.80-13.90 [facility] Comment on above: Performed By: #### L IVER, LDH, BMP #### [facility] [address] [place] [address] Dr. Esthela Stevens GLYCOHEMOGLOBIN A1Con 2022 ADA RECOMMENDATION SEE BELOW Normal [facility] Comment on above: Result Comment: ADA RECOMMENDED LIMIT 4.0 - 6.0 ADA THERAPEUTIC TARGET < 7.0 ACTION SUGGESTED > 7.0 Performed By: #### L IVER, LDH, BMP #### [facility] [address] [address] [address] Esthela Stevens Glucose [Mass/Vol] 111 mg/dL Normal [facility] Comment on above: Performed By: #### L IVER, LDH, BMP #### [facility] [address] [address] [address] Esthela Stevens HbA1c (Bld) [Mass fraction] 5.5 % Normal 4.5-6.2 [facility] Comment on above: Performed By: #### L IVER, LDH, BMP #### [facility] [address] [address] [address] Esthela Stevens IRONon 08-31-2022 Iron [Mass/Vol] 34.0 ug/dL Critically low 50.0-170.0 [facility] Comment on above: Performed By: #### L IVER, LDH, BMP #### [facility] [address] [address] [address] Esthela Stevens LIPID PROFILEon 08-31-2022 CHOL-HDL RATIO NORM SEE BELOW Normal [facility] Comment on above: Result Comment: 3.3 - 4.4 LOW RISK 4.4 - 7.1 AVERAGE RISK 7.1 - 11.0 MODERATE RISK >11.0 HIGH RISK Performed By: #### L IVER, LDH, BMP #### [facility] [address] [address] [address] Esthela Stevens Cholesterol [Mass/Vol] 168 mg/dL Normal <=200 [facility] Comment on above: Performed By: #### L IVER, LDH, BMP #### [facility] [address] [address] [address] Esthela Stevens Cholesterol in HDL [Mass/Vol] 51 mg/dL Normal 40-60 [facility] Comment on above: Performed By: #### L IVER, LDH, BMP #### [facility] [address] [address] [address] Esthela Stevens Cholesterol in LDL [Mass/Vol] 91.8 mg/dL Normal [facility] Comment on above: Performed By: #### L IVER, LDH, BMP #### [facility] [address] [place] [address] Dr. Esthela Stevens Cholesterol.total/Ch olesterol in HDL [Mass ratio] 3.3 {ratio} Normal [facility] Comment on above: Performed By: #### L IVER, LDH, BMP #### [facility] [address] [address] [address] Esthela Stevens HDL NORMAL > or = 60 mg/dl - LOW CARDIOVASCULAR RISK <40 mg/dl - HIGH CARDIOVASCULAR RISK Normal [facility] Comment on above: Performed By: #### L IVER, LDH, BMP #### [facility] [address] [place] [address] Dr. Esthela Stevens LDL CALC NORMAL SEE BELOW Normal [facility] Comment on above: Result Comment: <100 mg/dl OPTIMAL 100 - 129 mg/dl NEAR OR ABOVE OPTIMAL 130 - 159 mg/dl BORDERLINE HIGH 160 - 189 mg/dl HIGH >190 mg/dl VERY HIGH Performed By: #### L IVER, LDH, BMP #### [facility] [address] [place] [address] Dr. Esthela Stevens Triglyceride [Mass/Vol] 126 mg/dL Normal <=150 [facility] Comment on above: Performed By: #### L IVER, LDH, BMP #### [facility] [address] [place] [address] Dr. Esthela Stevens VLDL CALC 25.2 mg/dL Normal [facility] Comment on above: Performed By: #### L IVER, LDH, BMP #### [facility] [address] [place] [address] Dr. Esthela Stevens PROF 14(COMP METB)on 023 Albumin [Mass/Vol] 4.2 g/dL Normal 3.4-5.0 [facility] Comment on above: Performed By: #### L IVER, LDH, BMP #### [facility] [address] [address] [address] Esthela Stevens Albumin/Globulin [Mass ratio] 1.1 {ratio} Normal [facility] Comment on above: Performed By: #### L IVER, LDH, BMP #### [facility] [address] [address] [address] Esthela Stevens ALP [Catalytic activity/Vol] 74 U/L Normal 46-116 [facility] Comment on above: Performed By: #### L IVER, LDH, BMP #### [facility] [address] [address] [address] Esthela Stevens ALT [Catalytic activity/Vol] 57 U/L Normal 14-59 [facility] Comment on above: Performed By: #### L IVER, LDH, BMP #### [facility] [address] [address] [address] Esthela Stevens Anion gap [Moles/Vol] 15.0 mmol/L Normal [facility] Comment on above: Performed By: #### L IVER, LDH, BMP #### [facility] [address] [address] [address] Esthela Stevens AST [Catalytic activity/Vol] 25 U/L Normal 15-37 [facility] Comment on above: Performed By: #### L IVER, LDH, BMP #### [facility] [address] [address] [address] Esthela Stevens Bilirubin [Mass/Vol] 0.4 mg/dL Normal 0.2-1.0 [facility] Comment on above: Performed By: #### L IVER, LDH, BMP #### [facility] [address] [address] [address] Esthela Stevens Calcium [Mass/Vol] 9.4 mg/dL Normal 8.5-10.1 [facility] Comment on above: Performed By: #### L IVER, LDH, BMP #### [facility] [address] [address] [address] Esthela Stevens Chloride [Moles/Vol] 102 mmol/L Normal 98-107 [facility] Comment on above: Performed By: #### L IVER, LDH, BMP #### [facility] [address] [address] [address] Esthela Stevens CO2 [Moles/Vol] 27.0 mmol/L Normal 21.0-32.0 [facility] Comment on above: Performed By: #### L IVER, LDH, BMP #### [facility] [address] [place] [address] Dr. Esthela Stevens Creatinine [Mass/Vol] 0.61 mg/dL Normal 0.55-1.02 [facility] Comment on above: Performed By: #### L IVER, LDH, BMP #### [facility] [address] [place] [address] Dr. Esthela Stevens EGFR-AF SAUDI ARABIAN >60 Normal >=60 [facility] Comment on above: Performed By: #### L IVER, LDH, BMP #### [facility] [address] [place] [address] Dr. Esthela Stevens EGFR-NON AF SAUDI ARABIAN >60 Normal >=60 [facility] Comment on above: Performed By: #### L IVER, LDH, BMP #### [facility] [address] [place] [address] Dr. Esthela Stevens Globulin (S) [Mass/Vol] 3.7 g/dL Normal [facility] Comment on above: Performed By: #### L IVER, LDH, BMP #### [facility] [address] [place] [address] Dr. Esthela Stevens Glucose [Mass/Vol] 88 mg/dL Normal 74-106 [facility] Comment on above: Performed By: #### L IVER, LDH, BMP #### [facility] [address] [place] [address] Dr. Esthela Stevens Potassium [Moles/Vol] 4.0 mmol/L Normal 3.5-5.1 [facility] Comment on above: Performed By: #### L IVER, LDH, BMP #### [facility] [address] [place] [address] Dr. Esthela Stevens Protein [Mass/Vol] 7.9 g/dL Normal 6.4-8.2 [facility] Comment on above: Performed By: #### L IVER, LDH, BMP #### [facility] [address] [address] [address] Esthela Stevens Sodium [Moles/Vol] 140 mmol/L Normal 136-145 [facility] Comment on above: Performed By: #### L IVER, LDH, BMP #### [facility] [address] [address] [address] Esthela Stevens Urea nitrogen [Mass/Vol] 4.0 mg/dL Critically low 7.0-18.0 [facility] Comment on above: Performed By: #### L IVER, LDH, BMP #### [facility] [address] [place] [address] Dr. Esthela Stevens Urea nitrogen/Creatinine [Mass ratio] 6.6 mg/mg Normal [facility] Comment on above: Performed By: #### L IVER, LDH, BMP #### [facility] [address] [place] [address] Dr. Esthela Stevens TSHon 08-31-2022 TSH 1.348 uIU/mL Normal 0.358-3.740 [facility] Comment on above: Performed By: #### L IVER, LDH, BMP #### [facility] [address] [place] [address] Dr. Esthela Stevens URIC ACID SERUMon 08-31-2022 Urate [Mass/Vol] 4.4 mg/dL Normal 2.6-6.0 [facility] Comment on above: Performed By: #### L IVER, LDH, BMP #### [facility] [address] [address] [address] Esthela Stevens VITAMIN D 25 OHon 08-31-2022 VIT D 25-OH 18.0 ng/mL Normal [facility] Comment on above: Performed By: #### L IVER, LDH, BMP #### [facility] [address] [place] [address] Dr. Esthela Stevens VIT D RANGES SEE BELOW Normal [facility] Comment on above: Result Comment: <20 ng/mL Vit D deficient 20 - <30 ng/mL Vit D insufficient 30 - 100 ng/mL Vit D sufficient >100 ng/mL Potential Toxicity Performed By: #### L IVER, LDH, BMP #### [facility] [address] [address] [address] Esthela Stevens LIVER PROFILEon 08-24-2022 Albumin [Mass/Vol] 3.9 g/dL Normal 3.4-5.0 [facility] Comment on above: Performed By: #### L IVER, LDH, BMP #### [facility] [address] [address] [address] Esthela Stevens Albumin/Globulin [Mass ratio] 1.0 {ratio} Normal [facility] Comment on above: Performed By: #### L IVER, LDH, BMP #### [facility] [address] [address] [address] Esthela Stevens ALP [Catalytic activity/Vol] 70 U/L Normal 46-116 [facility] Comment on above: Performed By: #### L IVER, LDH, BMP #### [facility] [address] [address] [address] Esthela Stevens ALT [Catalytic activity/Vol] 44 U/L Normal 14-59 [facility] Comment on above: Performed By: #### L IVER, LDH, BMP #### [facility] [address] [address] [address] Esthela Stevens AST [Catalytic activity/Vol] 22 U/L Normal 15-37 [facility] Comment on above: Performed By: #### L IVER, LDH, BMP #### [facility] [address] [address] [address] Esthela Stevens BILI, CONJUGATED 0.1 mg/dL Normal 0.0-0.2 [facility] Comment on above: Performed By: #### L IVER, LDH, BMP #### [facility] [address] [address] [address] Esthela Stevens Bilirubin [Mass/Vol] 0.3 mg/dL Normal 0.2-1.0 [facility] Comment on above: Performed By: #### L IVER, LDH, BMP #### [facility] [address] [place], [place] [address] Dr. Esthela Stevens Globulin (S) [Mass/Vol] 3.9 g/dL Normal [facility] Comment on above: Performed By: #### L IVER, LDH, BMP #### [facility] [address] [place], [place] [address] Dr. Esthela Stevens Protein [Mass/Vol] 7.8 g/dL Normal 6.4-8.2 [facility] Comment on above: Performed By: #### L IVER, LDH, BMP #### [facility] [id number] Esthela Stevens [address] ABDOMEN/PELVIS WITH AND [...] or increased in size compared to prior. [employer]st 0.8 cm x 0.5 cm soft tissue [...] error, please notify the sender immediately at [phone] and permanently delete the original report and destroy any copies or printouts. Normal [facility] CREAT/GFRon 08-19-2022 Creatinine [Mass/Vol] 0.85 mg/dL 0.50 - 1.20 mg/dL [facility] GFR/1.73 sq M.predicted CKD-EPI (S/P/Bld) [Vol rate/Area] - PINF [facility] Comment on above: Reported eGFR is bas ed on the CKD-EPI 2020 equation using creatinine, age, and sex. Interpretation and review of laboratory results Normal [facility] Test performed at address of the patient encounter. [facility] [place] NUC PET NEUROENDOCRINEon NUC PET NEUROENDOCRINE EXAM: [...] evidence of somatostatin receptor avid malignancy. Normal [facility] PT Skull base to mid-thighon 08-19-2022 [...] the patient was positioned on the Siemens Neuralitic Systemsgraph mCT TOF< PET/CT-64, Tera imaging unit. 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 [facility] Radiology Study observation (narrative) [facility] PT Skull base to mid-thighOr dered By: Hawa Pichardo on 08-19-[address] [facility] Work Phone: CBC AUTO DIFFon 08-12-2022 BASO # 0.1 103/ul Normal 0.0-0.1 [facility] Comment on above: Performed By: #### L IVER, LDH, BMP #### [facility] [address] [place] [address] Dr. Esthela Stevens Basophils/100 WBC (Bld) 1.0 % Normal 0.2-2.0 [facility] Comment on above: Performed By: #### L IVER, LDH, BMP #### [facility] [address] [address] [address] Esthela Stevens EO # 0.1 103/ul Normal 0.0-0.7 [facility] Comment on above: Performed By: #### L IVER, LDH, BMP #### [facility] [address] [address] [address] Esthela Stevens Eosinophils/100 WBC (Bld) 1.6 % Normal 0.9-7.0 [facility] Comment on above: Performed By: #### L IVER, LDH, BMP #### [facility] [address] [address] [address] Esthela Stevens Erythrocyte distribution width (RBC) [Ratio] 12.5 % Normal 11.0-15.0 [facility] Comment on above: Performed By: #### L IVER, LDH, BMP #### [facility] [address] [place] [address] Dr. Esthela Stevens Hematocrit (Bld) [Volume fraction] 40.1 % Normal 36.0-48.0 [facility] Comment on above: Performed By: #### L IVER, LDH, BMP #### [facility] [address] [address] [address] Esthela Stevens Hemoglobin (Bld) [Mass/Vol] 12.3 g/dL Normal 12.0-16.0 [facility] Comment on above: Performed By: #### L IVER, LDH, BMP #### [facility] [address] [address] [address] Esthela Stevens IG # 0.01 10e3/ul Normal 0.00-0.03 [facility] Comment on above: Performed By: #### L IVER, LDH, BMP #### [facility] [address] [address] [address] Esthela Stevens IG % 0.2 % Normal 0.0-0.5 [facility] Comment on above: Performed By: #### L IVER, LDH, BMP #### [facility] [address] [place] [address] Dr. Esthela Stevens LYMPH # 1.8 103/ul Normal 1.2-3.8 [facility] Comment on above: Performed By: #### L IVER, LDH, BMP #### [facility] [address] [place] [address] Dr. Esthela Stevens Lymphocytes/100 WBC (Bld) 28.0 % Normal 20.5-60.0 [facility] Comment on above: Performed By: #### L IVER, LDH, BMP #### [facility] [address] [place] [address] Dr. Esthela Stevens MANUAL DIFF REQ NO Normal [facility] Comment on above: Performed By: #### L IVER, LDH, BMP #### [facility] [address] [place] [address] Dr. Esthela Stevens MCH (RBC) [Entitic mass] 26.8 pg Normal 26.7-34.0 [facility] Comment on above: Performed By: #### L IVER, LDH, BMP #### [facility] [address] [place] [address] Dr. Esthela Stevens MCHC (RBC) [Mass/Vol] 30.7 g/dL Normal 29.9-35.2 [facility] Comment on above: Performed By: #### L IVER, LDH, BMP #### [facility] [address] [place] [address] Dr. Esthela Stevens MCV (RBC) [Entitic vol] 87.4 fL Normal 81.0-99.0 [facility] Comment on above: Performed By: #### L IVER, LDH, BMP #### [facility] [address] [place] [address] Dr. Esthela Stevens MONO # 0.6 103/ul Normal 0.3-0.8 [facility] Comment on above: Performed By: #### L IVER, LDH, BMP #### [facility] [address] [place] [address] Dr. Esthela Stevens Monocytes/100 WBC (Bld) 9.4 % Normal 1.7-12.0 [facility] Comment on above: Performed By: #### L IVER, LDH, BMP #### [facility] [address] [place] [address] Dr. Esthela Stevens NEUT # 3.8 103/ul Normal 1.4-6.5 [facility] Comment on above: Performed By: #### L IVER, LDH, BMP #### [facility] [address] [place] [address] Dr. Esthela Stevens Neutrophils/100 WBC (Bld) 59.8 % Normal 43.0-75.0 [facility] Comment on above: Performed By: #### L IVER, LDH, BMP #### [facility] [address] [place] [address] Dr. Esthela Stevens Platelet mean volume (Bld) [Entitic vol] 9.6 fL Normal 9.5-13.5 [facility] Comment on above: Performed By: #### L IVER, LDH, BMP #### [facility] [address] [place] [address] Dr. Esthela Stevens PLT 341 103/ul Normal 150-450 [facility] Comment on above: Performed By: #### L IVER, LDH, BMP #### [facility] [address] [place] [address] Dr. Esthela Stevens RBC 4.59 106/ul Normal 4.20-5.40 [facility] Comment on above: Performed By: #### L IVER, LDH, BMP #### [facility] [address] [place] [address] Dr. Esthela Stevens WBC 6.3 103/ul Normal 4.0-11.0 [facility] Comment on above: Performed By: #### L IVER, LDH, BMP #### [facility] [address] [place] [address] ABD/PELV W CONon 08-12-[address] ABD/PELV W CON INDICATION: ABDOMINAL DISTENSION [...] TIMMY SHAY Date: 2022-08-12 17:04 Normal [facility] CULTURE URINEon 08-12-2022 CULTURE URINE Culture Observations: MODERATE GROWTH OF MIXED GENITAL SUNITA. NO POTENTIAL PATHOGENS SEEN. Normal [facility] Comment on above: Performed By: #### L IVER, LDH, BMP #### [facility] [address] [address] [address] Esthela Stevens ER URINE PROFILEon 3 Bilirubin Ql (U) Negative Normal NEGATIVE [facility] Comment on above: Performed By: #### P REG #### [facility] [address] [address] [address] Esthela Stevens Clarity (U) CLEAR Normal CLEAR [facility] Comment on above: Performed By: #### P REG #### [facility] [address] [place] [address] Dr. Esthela Stevens Color (U) LT. YELLOW Normal YELLOW [facility] Comment on above: Performed By: #### P REG #### [facility] [address] [place] [address] Dr. Esthela ARGUELLES A micrscopic examination will be performed if indicated. Normal [facility] Comment on above: Performed By: #### P REG #### [facility] [address] [place] [address] Dr. Esthela Stevens Glucose Ql (U) Negative Normal NEGATIVE [facility] Comment on above: Performed By: #### P REG #### [facility] [address] [place] [address] Dr. Esthela Stevens Hemoglobin Ql (U) Negative Normal NEGATIVE [facility] Comment on above: Performed By: #### P REG #### [facility] [address] [address] [address] Esthela Stevens Ketones Ql (U) Negative Normal NEGATIVE [facility] Comment on above: Performed By: #### P REG #### [facility] [address] [address] [address] Esthela Stevens LEUKOCYTES SMALL Abnormal NEGATIVE [facility] Comment on above: Performed By: #### P REG #### [facility] [address] [place] [address] Dr. Esthela Stevens Nitrite Ql (U) Negative Normal NEGATIVE [facility] Comment on above: Performed By: #### P REG #### [facility] [address] [place] [address] Dr. Esthela Stevens pH (U) 7.0 [pH] Normal 5-9 [facility] Comment on above: Performed By: #### P REG #### [facility] [address] [place] [address] Dr. Esthela Stevens SPEC GRAVITY 1.020 Normal 1.005-<=1.025 [facility] Comment on above: Performed By: #### P REG #### [facility] [address] [place] [address] Dr. Esthela Stevens UA PROTEIN Negative Normal NEGATIVE/ TRACE [facility] Comment on above: Performed By: #### P REG #### [facility] [address] [place] [address] Dr. Esthela Stevens UR MICRO IND INDICATED Normal [facility] Comment on above: Performed By: #### P REG #### [facility] [address] [place] [address] Dr. Esthela Stevens Urobilinogen Qn (U) 0.2 {Emeka'U}/dL Normal 0.2 - 1. 0 [facility] Comment on above: Performed By: #### P REG #### [facility] [address] [place] [address] Dr. Esthela Stevens LIPASEon 08-12-2022 Lipase [Catalytic activity/Vol] 75.0 U/L Normal 73.0-393.0 [facility] Comment on above: Performed By: #### P REG #### [facility] [address] [place] [address] Dr. Esthela Stevens URon 08-12-2022 , QUAL Negative Normal NEGATIVE [facility] Comment on above: Performed By: #### P REG #### [facility] [address] [place] [address] Dr. Esthela Stevens PROF 14(COMP METB)on 023 Albumin [Mass/Vol] 4.0 g/dL Normal 3.4-5.0 [facility] Comment on above: Performed By: #### P REG #### [facility] [address] [place] [address] Dr. Esthela Stevens Albumin/Globulin [Mass ratio] 1.1 {ratio} Normal [facility] Comment on above: Performed By: #### P REG #### [facility] [address] [place] [address] Dr. Esthela Stevens ALP [Catalytic activity/Vol] 73 U/L Normal 46-116 [facility] Comment on above: Performed By: #### P REG #### [facility] [address] [place] [address] Dr. Esthela Stevens ALT [Catalytic activity/Vol] 82 U/L Critically high 14-59 [facility] Comment on above: Performed By: #### P REG #### [facility] [address] [place] [address] Dr. Esthela Stevens Anion gap [Moles/Vol] 12.0 mmol/L Normal [facility] Comment on above: Performed By: #### P REG #### [facility] [address] [place] [address] Dr. Esthela Stevens AST [Catalytic activity/Vol] 33 U/L Normal 15-37 [facility] Comment on above: Performed By: #### P REG #### [facility] [address] [place] [address] Dr. Esthela Stevens Bilirubin [Mass/Vol] 0.2 mg/dL Normal 0.2-1.0 [facility] Comment on above: Performed By: #### P REG #### [facility] [address] [place] [address] Dr. Esthela Stevens Calcium [Mass/Vol] 9.4 mg/dL Normal 8.5-10.1 [facility] Comment on above: Performed By: #### P REG #### [facility] [address] [place] [address] Dr. Esthela Stevens Chloride [Moles/Vol] 102 mmol/L Normal 98-107 [facility] Comment on above: Performed By: #### P REG #### [facility] [address] [place] [address] Dr. Esthela Stevens CO2 [Moles/Vol] 27.8 mmol/L Normal 21.0-32.0 [facility] Comment on above: Performed By: #### P REG #### [facility] [address] [address] [address] Esthela Stevens Creatinine [Mass/Vol] 0.69 mg/dL Normal 0.55-1.02 [facility] Comment on above: Performed By: #### P REG #### [facility] [address] [address] [address] Esthela Stevens EGFR-AF SAUDI ARABIAN >60 Normal >=60 [facility] Comment on above: Performed By: #### P REG #### [facility] [address] [address] [address] Esthela Stevens EGFR-NON AF SAUDI ARABIAN >60 Normal >=60 [facility] Comment on above: Performed By: #### P REG #### [facility] [address] [place] [address] Dr. Esthela Stevens Globulin (S) [Mass/Vol] 3.5 g/dL Normal [facility] Comment on above: Performed By: #### P REG #### [facility] [address] [place] [address] Dr. Esthela Stevens Glucose [Mass/Vol] 109 mg/dL Critically high 74-106 [facility] Comment on above: Performed By: #### P REG #### [facility] [address] [place] [address] Dr. Esthela Stevens Potassium [Moles/Vol] 3.8 mmol/L Normal 3.5-5.1 [facility] Comment on above: Performed By: #### P REG #### [facility] [address] [place] [address] Dr. Esthela Stevens Protein [Mass/Vol] 7.5 g/dL Normal 6.4-8.2 [facility] Comment on above: Performed By: #### P REG #### [facility] [address] [address] [address] Esthela Stevens Sodium [Moles/Vol] 138 mmol/L Normal 136-145 [facility] Comment on above: Performed By: #### P REG #### [facility] [address] [place] [address] Dr. Esthela Stevens Urea nitrogen [Mass/Vol] 6.0 mg/dL Critically low 7.0-18.0 [facility] Comment on above: Performed By: #### P REG #### [facility] [address] [place] [address] Dr. Esthela Stevens Urea nitrogen/Creatinine [Mass ratio] 8.7 mg/mg Normal [facility] Comment on above: Performed By: #### P REG #### [facility] [address] [place] [address] Dr. Esthela Stevens URINE MICROSCOPIC ONLYon BACTERIA SMALL Abnormal NONE SEEN [facility] Comment on above: Performed By: #### P REG #### [facility] [address] [place] [address] Dr. Esthela Stevens Bacteria identified Cx Nom (U) INDICATED Normal [facility] Comment on above: Performed By: #### P REG #### [facility] [address] [place] [address] Dr. Esthela Stevens CAST NONE SEEN Normal NONE SEEN [facility] Comment on above: Performed By: #### P REG #### [facility] [address] [place] [address] Dr. Esthela Stevens Crystals LM Nom (Urine sed) NONE SEEN Normal NONE SEEN [facility] Comment on above: Performed By: #### P REG #### [facility] [address] [place] [address] Dr. Esthela Stevens Epithelial cells LM Ql (Urine sed) MODERATE Abnormal NONE SEEN /RARE [facility] Comment on above: Performed By: #### P REG #### [facility] [address] [place] [address] Dr. Esthela Stevens MUCOUS NONE SEEN Normal NONE SEEN [facility] Comment on above: Performed By: #### P REG #### [facility] [address] [place] [address] Dr. Esthela Stevens RBC NONE SEEN Abnormal 0-2 [facility] Comment on above: Performed By: #### P REG #### [facility] [address] [address] [address] Esthela Stevens WBC 2-5 Abnormal NONE SEEN [facility] Comment on above: Performed By: #### P REG #### [facility] [address] [address] [address] Esthela Stevens PAP ACOG PANEL 2: 21 to 31on 08-11-2022 . . Normal [facility] Comment on above: Performed By: #### [id number] #### [facility] [address] [address] [address] Esthela Stevens Age Gdln ACOG Testing - Normal [facility] Comment on above: Performed By: #### [id number] #### [facility] [address] [place] [address] Dr. Esthela Stevens DIAGNOSIS: Comment Abnormal [facility] Comment on above: Result Comment: EPIT HELIAL CELL ABNORMALITY. ATYPICAL SQUAMOUS CELLS OF UNDETERMINED SIGNIFICANCE (ASC-US). Performed By: #### [id number] #### [facility] [address] [place] [address] Dr. Esthela Stevens Electronically signed by: Comment Normal [facility] Comment on above: Result Comment: Zoe Moncada MD, Pathologist Performed By: #### [id number] #### [facility] [address] [place] [address] Dr. Esthela Stevens HPV Aptima Negative Normal Negative [facility] Comment on above: Result Comment: This nucleic acid amplification test detects fourteen high-risk HPV types (16,18,31,33,35,39,45,51,52,56,58,59,66,68) without differentiation. Performed By: #### [id number] #### [facility] [address] [place] [address] Dr. Esthela Stevens Methodology: Comment Normal [facility] Comment on above: Result Comment: This liquid based ThinPrep(R) pap test was screened with the use of an image guided system. Performed By: #### [id number] #### [facility] [address] [place] [address] Dr. Esthela Stevens Note: Comment Normal [facility] Comment on above: Result Comment: The Pap smear is a screening test designed to aid in the detection of premalignant and malignant conditions of the uterine cervix. It is not a diagnostic procedure and should not be used as the sole means of detecting cervical cancer. Both false-positive and false-negative reports do occur. . Performed By: #### [id number] #### [facility] [address] [place] [address] Dr. Esthela Stevens Pathologist Provided ICD10 Comment Normal [facility] Comment on above: Result Comment: R87. [id number] Performed By: #### [id number] #### [facility] [address] [place] [address] Dr. Esthela Stevens Performed by: Comment Normal [facility] Comment on above: Result Comment: Nevin Ardon Bottom Finisher (ASCP) Performed By: #### [id number] #### [facility] [address] [place] [address] Dr. Esthela Stevens Reflex Criteria: Comment Normal [facility] Comment on above: Result Comment: See below for HPV testing results. . Performed By: #### [id number] #### [facility] [address] [place] [address] Dr. Esthela Stevens Specimen adequacy: Comment Normal [facility] Comment on above: Result Comment: Sati sfactory for evaluation. Endocervical and/or squamous metaplastic cells (endocervical component) are present. Performed By: #### [id number] #### [facility] [address] [place] [address] Dr. Esthela Stevens CALCITONINon 07-08-2022 Calcitonin <1.89 Normal <=9.53 [facility] Comment on above: Result Comment: This test was performed on the Bee Resilient Immunoassay platform by [employer] which is a two-site sandwich chemiluminescent immunoassay. It is important to note that assays using different manufacturers and/or methods may not be comparable. Performed By: #### Y CHGRA #### [facility] (DEFAULT) [address] [place] [address] CBC AND ELECTRONIC DIFFon Basophils (Bld) [#/Vol] 0.04 10*3/uL Normal 0.00-0.15 [facility] Comment on above: Performed By: #### RODRIGO Rangel, CHM7, MGO #### [facility] (DEFAULT) [address] [place] [address] Basophils/100 WBC (Bld) 0.7 % Normal [facility] Comment on above: Performed By: #### Dayday Santos, IPBrett, CHM7, MGO #### [facility] (DEFAULT) [address] [place] [address] 61001 DIFF STATUS Electronic Differential Normal [facility] Comment on above: Performed By: #### Dayday Santos, IPBrett, CHM7, MGO #### [facility] (DEFAULT) [address] [place] [address] 18374 Eosinophils (Bld) [#/Vol] 0.14 10*3/uL Normal 0.00-0.42 [facility] Comment on above: Performed By: #### Dayday Santos IPBrett, CHM7, MGO #### [facility] (DEFAULT) [address] [place] [address] 49352 Eosinophils/100 WBC (Bld) 2.4 % Normal [facility] Comment on above: Performed By: #### Dayday Santos, IPB, CHM7, MGO #### [facility] (DEFAULT) [address] [place] [address] 15323 Hematocrit (Bld) [Volume fraction] 38.1 % Normal 34.9-44.3 [facility] Comment on above: Performed By: #### Dayday Santos IPB, CHM7, MGO #### [facility] (DEFAULT) [address] [place] [address] 63981 Hemoglobin (Bld) [Mass/Vol] 12.2 g/dL Normal 11.4-15.2 [facility] Comment on above: Performed By: #### Dayday Santos, IPB, CHM7, MGO #### [facility] (DEFAULT) [address] [place] [address] 00126 Immature Grans % 0.2 % Normal [facility] Comment on above: Performed By: #### Dayday Santos, IPB, CHM7, MGO #### [facility] (DEFAULT) [address] [place] [address] 26320 Immature Grans Absolute < Normal <=0.08 [facility] Comment on above: Performed By: #### Dayday A, IPB, CHM7, MGO #### [facility] (DEFAULT) [address] [place] [address] 95772 Lymphocytes (Bld) [#/Vol] 2.14 10*3/uL Normal 1.16-3.51 [facility] Comment on above: Performed By: #### Dayday Santos, IPB, CHM7, MGO #### [facility] (DEFAULT) [address] [place] [address] 73013 Lymphocytes/100 WBC (Bld) 36.8 % Normal [facility] Comment on above: Performed By: #### Dayday Santos, IPB, CHM7, MGO #### [facility] (DEFAULT) [address] [place] [address] 42998 MCV (RBC) [Entitic vol] 83.2 fL Normal 79.6-97.7 [facility] Comment on above: Performed By: #### Dayday Santos, IPB, CHM7, MGO #### [facility] (DEFAULT) [address] [place] [address] 38433 Mean Cell Hgb 26.6 pg Normal 25.9-33.9 [facility] Comment on above: Performed By: #### Dayday Santos, IPB, CHM7, MGO #### [facility] (DEFAULT) [address] [place] [address] 40422 Mean Cell Hgb Conc 32.0 g/dL Normal 31.4-35.9 [facility] Comment on above: Performed By: #### C A, IPB, CHM7, MGO #### [facility] (DEFAULT) [address] [place] [address] 17814 Monocytes (Bld) [#/Vol] 0.49 10*3/uL Normal 0.22-0.87 [facility] Comment on above: Performed By: #### C A, IPB, CHM7, MGO #### [facility] (DEFAULT) [address] [place] [address] 44922 Monocytes/100 WBC (Bld) 8.4 % Normal [facility] Comment on above: Performed By: #### C A, IPB, CHM7, MGO #### [facility] (DEFAULT) [address] [place] [address] 32485 Nucleated RBC 0.0 /100 WBC Normal <=0.2 [facility] Comment on above: Performed By: #### C A, IPB, CHM7, MGO #### [facility] (DEFAULT) [address] [place] [address] 50630 Platelet mean volume (Bld) [Entitic vol] 9.0 fL Normal 8.5-12.2 [facility] Comment on above: Performed By: #### C A, IPB, CHM7, MGO #### [facility] (DEFAULT) [address] [place] [address] 99659 Platelets (Bld) [#/Vol] 273 10*3/uL Normal 150-393 [facility] Comment on above: Performed By: #### C A, IPB, CHM7, MGO #### [facility] (DEFAULT) [address] [place] [address] 65642 RBC (Bld) [#/Vol] 4.58 10*6/uL Normal 3.91-5.04 [facility] Comment on above: Performed By: #### C A, IPB, CHM7, MGO #### [facility] (DEFAULT) [address] [place] [address] 68121 RBC Distribution 13.0 % Normal 10.8-14.9 [facility] Comment on above: Performed By: #### C Danielle, IPB, CHM7, MGO #### [facility] (DEFAULT) [address] [place] [address] 36490 Segs + Bands Auto 51.5 % Normal [facility] Comment on above: Performed By: #### C A, IPB, CHM7, MGO #### [facility] (DEFAULT) [address] [place] [address] 76697 Segs + Bands,Absolute Auto 2.99 K/uL Normal 1.64-7.28 [facility] Comment on above: Performed By: #### C A, IPB, CHM7, MGO #### [facility] (DEFAULT) [address] [place] [address] 44582 WBC (Bld) [#/Vol] 5.81 10*3/uL Normal 3.99-11.19 [facility] Comment on above: Performed By: #### C A, IPB, CHM7, MGO #### [facility] (DEFAULT) [address] [place] [address] 10346 CHROMOGRANIN Aon 07-08-2022 Chromogranin A 25 ng/mL Normal <93 [facility] Comment on above: Result Comment: ADDITIONAL INFORMATION This test was developed and its performance characteristics determined by [facility] in a manner consistent with CLIA [...] a homogeneous time-resolved immunofluorescent assay manufactured by [employer] and performed on the [employer] Kryptor Compact Plus. Values obtained with different assay methods or kits may be different and cannot be used interchangeably. Test results cannot be interpreted as absolute evidence for the presence or absence of malignant disease. Test Performed by: [facility] [address] [place] [address] Metal Drill Operator: Ed Russo M.D. Ph.D.; CLIA# [id number] Performed By: #### C A, IPB, CHM7, MGO #### [facility] (DEFAULT) [address] [place] [address] 32534 COMPREHENSIVE METABOLIC PANE Shamir 07-08-2022 Albumin [Mass/Vol] 4.7 g/dL Normal 3.5-5.0 [facility] Comment on above: Performed By: #### C A, IPB, CHM7, MGO, HFP #### [facility] (DEFAULT) [address] [place] [address] 95676 ALP [Catalytic activity/Vol] 67 U/L Normal 32-126 [facility] Comment on above: Performed By: #### C A, IPB, CHM7, MGO, HFP #### [facility] (DEFAULT) [address] [place] [address] 35745 ALT [Catalytic activity/Vol] 88 U/L High 9-48 [facility] Comment on above: Performed By: #### C A, IPB, CHM7, MGO, HFP #### [facility] (DEFAULT) [address] [place] [address] 60471 Anion gap [Moles/Vol] 12 mmol/L Normal 7-17 [facility] Comment on above: Performed By: #### C A, IPB, CHM7, MGO, HFP #### [facility] (DEFAULT) [address] [place] [address] 67798 AST [Catalytic activity/Vol] 42 U/L High 10-39 [facility] Comment on above: Performed By: #### C A, IPB, CHM7, MGO, HFP #### [facility] (DEFAULT) [address] [place] [address] 89098 Bilirubin [Mass/Vol] 0.5 mg/dL Normal <1.5 [facility] Comment on above: Performed By: #### C A, IPB, CHM7, MGO, HFP #### [facility] (DEFAULT) [address] [place] [address] 69220 Calcium [Mass/Vol] 9.8 mg/dL Normal 8.6-10.5 [facility] Comment on above: Performed By: #### C A, IPB, CHM7, MGO, HFP #### [facility] (DEFAULT) [address] [place] [address] 77397 Chloride [Moles/Vol] 103 mmol/L Normal 98-108 [facility] Comment on above: Performed By: #### C A, IPB, CHM7, MGO, HFP #### [facility] (DEFAULT) [address] [place] [address] 91032 CO2 [Moles/Vol] 28 mmol/L Normal 21-31 [facility] Comment on above: Performed By: #### C A, IPB, CHM7, MGO, HFP #### [facility] (DEFAULT) [address] [place] [address] 19154 Creatinine [Mass/Vol] 0.69 mg/dL Normal 0.50-1.20 [facility] Comment on above: Performed By: #### C A, IPB, CHM7, MGO, HFP #### [facility] (DEFAULT) [address] [place] [address] 96725 eGFR, CKD-EPI, Female > Normal >=60 [facility] Comment on above: Result Comment: Repo rted eGFR is based on the CKD-EPI 2020 equation using creatinine, age, and sex. Performed By: #### C A, IPB, CHM7, MGO, HFP #### [facility] (DEFAULT) [address] [place] [address] 56582 Glucose [Mass/Vol] 93 mg/dL Normal 70-99 [facility] Comment on above: Performed By: #### C Danielle, IPB, CHM7, MGO, HFP #### [facility] (DEFAULT) [address] [place] [address] 16694 Osmolality [Osmolality] 289 mosm/kg Normal 278-305 [facility] Comment on above: Performed By: #### C A, IPB, CHM7, MGO, HFP #### [facility] (DEFAULT) [address] [place] [address] 89519 Potassium [Moles/Vol] 4.2 mmol/L Normal 3.5-5.0 [facility] Comment on above: Performed By: #### C A, IPB, CHM7, MGO, HFP #### [facility] (DEFAULT) [address] [place] [address] 98294 Protein [Mass/Vol] 7.4 g/dL Normal 6.4-8.3 [facility] Comment on above: Performed By: #### C Danielle, IPB, CHM7, MGO, HFP #### [facility] (DEFAULT) [address] [place] [address] 97447 Sodium [Moles/Vol] 139 mmol/L Normal 135-145 [facility] Comment on above: Performed By: #### C A, IPB, CHM7, MGO, HFP #### [facility] (DEFAULT) [address] [place] [address] 62687 Urea nitrogen [Mass/Vol] 8 mg/dL Normal 7-25 [facility] Comment on above: Performed By: #### C A, IPB, CHM7, MGO, HFP #### [facility] (DEFAULT) [address] [place] [address] 08465 Urea nitrogen/Creatinine [Mass ratio] 12 mg/mg Normal [facility] Comment on above: Performed By: #### C A, IPB, CHM7, MGO, HFP #### [facility] (DEFAULT) [address] [address] GASTRIN - NON-STIMULATEDon 1 09-08-2021 Gastrin 21 pg/mL Normal [facility] Comment on above: Result Comment: REFERENCE VALUE <100 Reference ranges valid for >= 8 hour fast. Test Performed by: [facility] [place] [address] Metal Drill Operator: Ed Russo M.D. Ph.D.; CLIA# [id number] Performed By: #### Dayday Santos, SHANEKAB, CHM7, MGO #### [facility] (DEFAULT) [address] [address] LACTATE DEHYDROGENASEon 12- LD Total 133 U/L Normal 100-190 [facility] Comment on above: Performed By: ###Richard Santos, IPB, CHM7, MGO, HFP #### [facility] (DEFAULT) [address] [address] PANCREATIC POLYPEPTIDEon Pancreatic Polypeptide 94 pg/mL Normal <228 [facility] Comment on above: Result Comment: ADDITIONAL INFORMATION This test was developed and its performance characteristics determined by [facility] in a manner consistent with CLIA requirements. This test has not been cleared or approved by the [place]. Food and Drug Administration. Test Performed by: [facility] [place] [address] Metal Drill Operator: Ed Russo M.D. Ph.D.; CLIA# [id number] Performed By: #### Dayday Santos, IPB, CHM7, MGO #### [facility] (DEFAULT) [address] [address] GI PANEL (PCR)on 06-03-2022 Adenovirus F 40/41 Not detected Normal NOT DETECTED [facility] Comment on above: Performed By: #### P REG #### [facility] [address] [place] [address] Dr. Esthela Stevens Astrovirus Not detected Normal NOT DETECTED [facility] Comment on above: Performed By: #### P REG #### [facility] [address] [place] [address] Dr. Esthela Stevens C. Diff toxin A/B Detected Critically abnormal NOT DETECTED [facility] Comment on above: Performed By: #### P REG #### [facility] [address] [place] [address] Dr. Esthela Stevens Campylobacter Not detected Normal NOT DETECTED [facility] Comment on above: Performed By: #### P REG #### [facility] [address] [place] [address] Dr. sEthela Stevens Cryptosporidium Not detected Normal NOT DETECTED [facility] Comment on above: Performed By: #### P REG #### [facility] [address] [place] [address] Dr. Esthela Stevens Cyclos. Cayetanensis Not detected Normal NOT DETECTED [facility] Comment on above: Performed By: #### P REG #### [facility] [address] [place] [address] Dr. Esthela Stevens E. Coli O157 Not Applicable Normal Not Applicable [facility] Comment on above: Performed By: #### P REG #### [facility] [address] [place] [address] Dr. Esthela Stevens E. histolytica Not detected Normal NOT DETECTED [facility] Comment on above: Performed By: #### P REG #### [facility] [address] [place] [address] Dr. Esthela Stevens EAEC Not detected Normal NOT DETECTED [facility] Comment on above: Performed By: #### P REG #### [facility] [address] [place] [address] Dr. Esthela Stevens EIEC Not detected Normal NOT DETECTED [facility] Comment on above: Performed By: #### P REG #### [facility] [address] [address] [address] Esthela Stevens EPEC Not detected Normal NOT DETECTED [facility] Comment on above: Performed By: #### P REG #### [facility] [address] [address] [address] Esthela Stevens ETEC Not detected Normal NOT DETECTED [facility] Comment on above: Performed By: #### P REG #### [facility] [address] [address] [address] Esthela Stevens G. Lamblia Not detected Normal NOT DETECTED [facility] Comment on above: Performed By: #### P REG #### [facility] [address] [place] [address] Dr. Esthela KELLY CONTROLS PASSED Normal [facility] Comment on above: Performed By: #### P REG #### [facility] [address] [place] [address] Dr. Esthela WEBB HEADER GI PANEL BACTERIA Normal [facility] Comment on above: Performed By: #### P REG #### [facility] [address] [place] [address] Dr. Esthela LARA ECOLI GI PANEL DIARRHEAGENIC E.COLI / SHIGELLA Normal [facility] Comment on above: Performed By: #### P REG #### [facility] [address] [place] [address] Dr. Esthela LARA INFO SEE BELOW [facility] Comment on above: Result Comment: EAEC - Enteroaggregative E. Coli EPEC- Enteropathogenic E. Coli ETEC- Enterotoxigenic E. Coli lt/st STEC- Shigella-like toxin-producing E. Coli stx1/stx2 EIEC- Shigella/Enteroinvasive E. Coli Performed By: #### P REG #### [facility] [address] [place] [address] Dr. Esthela LARA PARASITES GI PANEL PARASITES Normal [facility] Comment on above: Performed By: #### P REG #### [facility] [address] [place] [address] Dr. Esthela Stevens GIPNLHD VIRUS GI PANEL VIRUSES Normal [facility] Comment on above: Performed By: #### P REG #### [facility] [address] [place] [address] Dr. Esthela Stevens Norovirus GI/GII Not detected Normal NOT DETECTED [facility] Comment on above: Performed By: #### P REG #### [facility] [address] [address] [address] Esthela Stevens P. Shigelloides Not detected Normal NOT DETECTED [facility] Comment on above: Performed By: #### P REG #### [facility] [address] [place] [address] Dr. Esthela Stevens Rotavirus A Not detected Normal NOT DETECTED [facility] Comment on above: Performed By: #### P REG #### [facility] [address] [place] [address] Dr. Esthela Stevens Salmonella Not detected Normal NOT DETECTED [facility] Comment on above: Performed By: #### P REG #### [facility] [address] [place] [address] Dr. Esthela Stevens Sapovirus Not detected Normal NOT DETECTED [facility] Comment on above: Performed By: #### P REG #### [facility] [address] [place] [address] Dr. Esthela Stevens STEC Not detected Normal NOT DETECTED [facility] Comment on above: Performed By: #### P REG #### [facility] [address] [place] [address] Dr. Esthela Stevens Vibrio Not detected Normal NOT DETECTED [facility] Comment on above: Performed By: #### P REG #### [facility] [address] [place] [address] Dr. Esthela Stevens Vibrio Cholera Not detected Normal NOT DETECTED [facility] Comment on above: Performed By: #### P REG #### [facility] [address] [place] [address] Dr. Esthela Stevens Y. Enterocolitica Not detected Normal NOT DETECTED [facility] Comment on above: Performed By: #### P REG #### [facility] [address] [place] [address] Dr. Esthela Stevens CBC AUTO DIFFon 06-02-2022 BASO # 0.1 103/ul Normal 0.0-0.1 [facility] Comment on above: Performed By: #### L IVER, LDH, BMP #### [facility] [address] [place] [address] Dr. Esthela Stevens Basophils/100 WBC (Bld) 0.6 % Normal 0.2-2.0 [facility] Comment on above: Performed By: #### L IVER, LDH, BMP #### [facility] [address] [place] [address] Dr. Esthela Stevens EO # 0.5 103/ul Normal 0.0-0.7 [facility] Comment on above: Performed By: #### L IVER, LDH, BMP #### [facility] [address] [place] [address] Dr. Esthela Stevens Eosinophils/100 WBC (Bld) 4.3 % Normal 0.9-7.0 [facility] Comment on above: Performed By: #### L IVER, LDH, BMP #### [facility] [address] [place] [address] Dr. Esthela Stevens Erythrocyte distribution width (RBC) [Ratio] 13.0 % Normal 11.0-15.0 [facility] Comment on above: Performed By: #### L IVER, LDH, BMP #### [facility] [address] [place] [address] Dr. Esthela Stevens Hematocrit (Bld) [Volume fraction] 33.6 % Critically low 36.0-48.0 [facility] Comment on above: Performed By: #### L IVER, LDH, BMP #### [facility] [address] [place] [address] Dr. Esthela Stevens Hemoglobin (Bld) [Mass/Vol] 10.9 g/dL Critically low 12.0-16.0 [facility] Comment on above: Performed By: #### L IVER, LDH, BMP #### [facility] [address] [place], [place] [id number] Dr. Esthela Stevens IG # 0.05 10e3/ul Critically high 0.00-0.03 [facility] Comment on above: Performed By: #### L IVER, LDH, BMP #### [facility] [address] [place] [address] Dr. Esthela Stevens IG % 0.5 % Normal 0.0-0.5 [facility] Comment on above: Performed By: #### L IVER, LDH, BMP #### [facility] [address] [place] [address] Dr. Esthela Stevens LYMPH # 2.4 103/ul Normal 1.2-3.8 [facility] Comment on above: Performed By: #### L IVER, LDH, BMP #### [facility] [address] [place] [address] Dr. Esthela Stevens Lymphocytes/100 WBC (Bld) 22.4 % Normal 20.5-60.0 [facility] Comment on above: Performed By: #### L IVER, LDH, BMP #### [facility] [address] [place] [address] Dr. Esthela Stevens MANUAL DIFF REQ NO Normal [facility] Comment on above: Performed By: #### L IVER, LDH, BMP #### [facility] [address] [place] [address] Dr. Esthela Stevens MCH (RBC) [Entitic mass] 26.9 pg Normal 26.7-34.0 [facility] Comment on above: Performed By: #### L IVER, LDH, BMP #### [facility] [address] [place] [address] Dr. Esthela Stevens MCHC (RBC) [Mass/Vol] 32.4 g/dL Normal 29.9-35.2 [facility] Comment on above: Performed By: #### L IVER, LDH, BMP #### [facility] [address] [place] [address] Dr. Esthela Stevens MCV (RBC) [Entitic vol] 83.0 fL Normal 81.0-99.0 [facility] Comment on above: Performed By: #### L IVER, LDH, BMP #### [facility] [address] [place] [address] Dr. Esthela Stevens MONO # 0.8 103/ul Normal 0.3-0.8 [facility] Comment on above: Performed By: #### L IVER, LDH, BMP #### [facility] [address] [place] [address] Dr. Esthela Stevens Monocytes/100 WBC (Bld) 7.1 % Normal 1.7-12.0 [facility] Comment on above: Performed By: #### L IVER, LDH, BMP #### [facility] [address] [place] [address] Dr. Esthela Stevens NEUT # 7.0 103/ul Critically high 1.4-6.5 [facility] Comment on above: Performed By: #### L IVER, LDH, BMP #### [facility] [address] [place] [address] Dr. Esthela Stevens Neutrophils/100 WBC (Bld) 65.1 % Normal 43.0-75.0 [facility] Comment on above: Performed By: #### L IVER, LDH, BMP #### [facility] [address] [place] [address] Dr. Esthela Stevens Platelet mean volume (Bld) [Entitic vol] 8.9 fL Critically low 9.5-13.5 [facility] Comment on above: Performed By: #### L IVER, LDH, BMP #### [facility] [address] [place] [address] Dr. Esthela Stevens PLT 519 103/ul Critically high 150-450 [facility] Comment on above: Performed By: #### L IVER, LDH, BMP #### [facility] [address] [place] [address] Dr. Esthela Stevens RBC 4.05 106/ul Critically low 4.20-5.40 [facility] Comment on above: Performed By: #### L IVER, LDH, BMP #### [facility] [address] [place] [address] Dr. Esthela Stevens WBC 10.8 103/ul Normal 4.0-11.0 [facility] Comment on above: Performed By: #### L IVER, LDH, BMP #### [facility] [address] [address] [address] Esthela Stevens PROF 14(COMP METB)on 022 Albumin [Mass/Vol] 3.7 g/dL Normal 3.4-5.0 [facility] Comment on above: Performed By: #### L IVER, LDH, BMP #### [facility] [address] [place] [address] Dr. Esthela Stevens Albumin/Globulin [Mass ratio] 1.0 {ratio} Normal [facility] Comment on above: Performed By: #### L IVER, LDH, BMP #### [facility] [address] [place] [address] Dr. Esthela Stevens ALP [Catalytic activity/Vol] 75 U/L Normal 46-116 [facility] Comment on above: Performed By: #### L IVER, LDH, BMP #### [facility] [address] [place] [address] Dr. Esthela Stevens ALT [Catalytic activity/Vol] 95 U/L Critically high 14-59 [facility] Comment on above: Performed By: #### L IVER, LDH, BMP #### [facility] [address] [place] [address] Dr. Esthela Stevens Anion gap [Moles/Vol] 13.4 mmol/L Normal [facility] Comment on above: Performed By: #### L IVER, LDH, BMP #### [facility] [address] [address] [address] Esthela Stevens AST [Catalytic activity/Vol] 31 U/L Normal 15-37 [facility] Comment on above: Performed By: #### L IVER, LDH, BMP #### [facility] [address] [place] [address] Dr. Esthela Stevens Bilirubin [Mass/Vol] 0.1 mg/dL Critically low 0.2-1.0 [facility] Comment on above: Performed By: #### L IVER, LDH, BMP #### [facility] [address] [address] [address] Esthela Stevens Calcium [Mass/Vol] 9.3 mg/dL Normal 8.5-10.1 [facility] Comment on above: Performed By: #### L IVER, LDH, BMP #### [facility] [address] [place] [address] Dr. Esthela Stevens Chloride [Moles/Vol] 102 mmol/L Normal 98-107 [facility] Comment on above: Performed By: #### L IVER, LDH, BMP #### [facility] [address] [place] [address] Dr. Esthela Stevens CO2 [Moles/Vol] 26.4 mmol/L Normal 21.0-32.0 [facility] Comment on above: Performed By: #### L IVER, LDH, BMP #### [facility] [address] [place] [address] Dr. Esthela Stevens Creatinine [Mass/Vol] 0.67 mg/dL Normal 0.55-1.02 [facility] Comment on above: Performed By: #### L IVER, LDH, BMP #### [facility] [address] [place] [address] Dr. Esthela Stevens EGFR-AF SAUDI ARABIAN >60 Normal >=60 [facility] Comment on above: Performed By: #### L IVER, LDH, BMP #### [facility] [address] [place] [address] Dr. Esthela Stevens EGFR-NON AF SAUDI ARABIAN >60 Normal >=60 [facility] Comment on above: Performed By: #### L IVER, LDH, BMP #### [facility] [address] [address] [address] Esthela Stevens Globulin (S) [Mass/Vol] 3.7 g/dL Normal [facility] Comment on above: Performed By: #### L IVER, LDH, BMP #### [facility] [address] [place] [address] Dr. Esthela Stevens Glucose [Mass/Vol] 101 mg/dL Normal 74-106 [facility] Comment on above: Performed By: #### L IVER, LDH, BMP #### [facility] [address] [address] [address] Esthela Stevens Potassium [Moles/Vol] 3.8 mmol/L Normal 3.5-5.1 [facility] Comment on above: Performed By: #### L IVER, LDH, BMP #### [facility] [address] [place] [address] Dr. Esthela Stevens Protein [Mass/Vol] 7.4 g/dL Normal 6.4-8.2 [facility] Comment on above: Performed By: #### L IVER, LDH, BMP #### [facility] [address] [place] [address] Dr. Esthela Stevens Sodium [Moles/Vol] 138 mmol/L Normal 136-145 [facility] Comment on above: Performed By: #### L IVER, LDH, BMP #### [facility] [address] [place] [address] Dr. Esthela Stevens Urea nitrogen [Mass/Vol] 12.0 mg/dL Normal 7.0-18.0 [facility] Comment on above: Performed By: #### L IVER, LDH, BMP #### [facility] [address] [place] [address] Dr. Esthela Stevens Urea nitrogen/Creatinine [Mass ratio] 17.9 mg/mg Normal [facility] Comment on above: Performed By: #### L IVER, LDH, BMP #### [facility] [address] [place] [address] Dr. Esthela Stevens CALCIUMon 05-29-2022 Calcium [Mass/Vol] 9.0 mg/dL Normal 8.6-10.5 [facility] Comment on above: Performed By: #### C A, IPB, CHM7, MGO #### [facility] (DEFAULT) [address] [place] [address] Calcium [Mass/Vol] 9.0 mg/dL 8.6 - 10. 5 mg/dL [facility] CBC,PLATELETSon 05-29-2022 Hematocrit (Bld) [Volume fraction] 33.0 % Low 34.9-44.3 [facility] Comment on above: Performed By: #### Dayday Santos, IPB, CHM7, MGO, HFP #### [facility] (DEFAULT) [address] [place] [address] Hemoglobin (Bld) [Mass/Vol] 10.5 g/dL Low 11.4-15.2 [facility] Comment on above: Performed By: #### Dayday Santos, IPB, CHM7, MGO, HFP #### [facility] (DEFAULT) [address] [place] [address] MCV (RBC) [Entitic vol] 85.1 fL Normal 79.6-97.7 [facility] Comment on above: Performed By: #### Dayday Santos, IPB, CHM7, MGO, HFP #### [facility] (DEFAULT) [address] [place] [address]111 Mean Cell Hgb 27.1 pg Normal 25.9-33.9 [facility] Comment on above: Performed By: #### Dayday Santos, IPB, CHM7, MGO, HFP #### [facility] (DEFAULT) [address] [place] [address]388 Mean Cell Hgb Conc 31.8 g/dL Normal 31.4-35.9 [facility] Comment on above: Performed By: #### Dayday Santos, IPB, CHM7, MGO, HFP #### [facility] (DEFAULT) [address] [place] [phone] Platelet mean volume (Bld) [Entitic vol] 9.1 fL Normal 8.5-12.2 [facility] Comment on above: Performed By: #### Dayday Santos, IPB, CHM7, MGO, HFP #### [facility] (DEFAULT) [address] [place] [address] 42444 Platelets (Bld) [#/Vol] 423 10*3/uL High 150-393 [facility] Comment on above: Performed By: #### C A, IPB, CHM7, MGO, HFP #### [facility] (DEFAULT) [address] [place] [address]992 RBC (Bld) [#/Vol] 3.88 10*6/uL Low 3.91-5.04 [facility] Comment on above: Performed By: #### C A, IPB, CHM7, MGO, HFP #### [facility] (DEFAULT) [address] [place] [address] 77961 RBC Distribution 13.1 % Normal 10.8-14.9 [facility] Comment on above: Performed By: #### C A, IPB, CHM7, MGO, HFP #### [facility] (DEFAULT) [address] [place] [address]77 WBC (Bld) [#/Vol] 7.36 10*3/uL Normal 3.99-11.19 [facility] Comment on above: Performed By: #### C A, IPB, CHM7, MGO, HFP #### [facility] (DEFAULT) [address] [place] [address] Erythrocyte distribution width (RBC) [Ratio] 13.1 % 10.8 - 14.9 % [facility] Hematocrit (Bld) [Volume fraction] 33.0 % Low 34.9 - 44.3 % [facility] Hemoglobin (Bld) [Mass/Vol] 10.5 g/dL Low 11.4 - 15.2 g/dL [facility] Interpretation and review of laboratory results Abnormal [facility] MCH (RBC) [Entitic mass] 27.1 pg 25.9 - 33.[address] [facility] MCHC (RBC) [Mass/Vol] 31.8 g/dL 31.4 - 35.9 g/dL [facility] MCV (RBC) [Entitic vol] 85.1 fL 79.6 - 97.[address] [facility] Platelet mean volume (Bld) [Entitic vol] 9.1 fL 8.5 - 12.[address] [facility] Platelets (Bld) [#/Vol] 423 10*3/uL High 150 - 393 K/uL [facility] RBC (Bld) [#/Vol] 3.88 10*6/uL Low [facility] WBC (Bld) [#/Vol] 7.36 10*3/uL 3.99 - 11. 19 K/uL [facility] CHEM 7 (LYTES,BUN,CREA,GLUC) on 05-29-2022 Anion gap [Moles/Vol] 13 mmol/L Normal 7-17 [facility] Comment on above: Performed By: #### C A, IPB, CHM7, MGO #### [facility] (DEFAULT) [address] [place] [address]52 Chloride [Moles/Vol] 104 mmol/L Normal 98-108 [facility] Comment on above: Performed By: #### C A, IPB, CHM7, MGO #### [facility] (DEFAULT) [address] [place] [address] CO2 [Moles/Vol] 26 mmol/L Normal 21-31 [facility] Comment on above: Performed By: #### C A, IPB, CHM7, MGO #### [facility] (DEFAULT) [address] [place] [address] 88116 Creatinine [Mass/Vol] 0.66 mg/dL Normal 0.50-1.20 [facility] Comment on above: Performed By: #### C A, IPB, CHM7, MGO #### [facility] (DEFAULT) [address] [place] [address] 86796 eGFR, CKD-EPI, Female > Normal >=60 [facility] Comment on above: Result Comment: Repo rted eGFR is based on the CKD-EPI 2020 equation using creatinine, age, and sex. Performed By: #### C A, IPB, CHM7, MGO #### [facility] (DEFAULT) [address] [place] [address]245 Glucose [Mass/Vol] 93 mg/dL Normal 70-99 [facility] Comment on above: Performed By: #### Dayday Santos, RODRIGO, CHM7, MGO #### [facility] (DEFAULT) [address] [place] [address] 66446 Osmolality [Osmolality] 288 mosm/kg Normal 278-305 [facility] Comment on above: Performed By: #### Dayday Santos, IPB, CHM7, MGO #### [facility] (DEFAULT) [address] [place] [address]34 Potassium [Moles/Vol] 4.2 mmol/L Normal 3.5-5.0 [facility] Comment on above: Performed By: #### Dayday Santos, IPB, CHM7, MGO #### [facility] (DEFAULT) [address] [place] [address] 25462 Sodium [Moles/Vol] 139 mmol/L Normal 135-145 [facility] Comment on above: Performed By: #### SHANEKA RangelB, CHM7, MGO #### [facility] (DEFAULT) [address] [place] [address] 24193 Urea nitrogen [Mass/Vol] 5 mg/dL Low 7-25 [facility] Comment on above: Performed By: #### Dayday Santos, IPB, CHM7, MGO #### [facility] (DEFAULT) [address] [place] [address] 91355 Urea nitrogen/Creatinine [Mass ratio] 8 mg/mg Normal [facility] Comment on above: Performed By: #### Dayday Santos, IPB, CHM7, MGO #### [facility] (DEFAULT) [address] [place] [address] 81116 Anion gap [Moles/Vol] 13 mmol/L 7 - 17 mmol/L [facility] Chloride [Moles/Vol] 104 mmol/L 98 - 10 8 mmol/L [facility] CO2 [Moles/Vol] 26 mmol/L 21 - 31 mmol/L [facility] Creatinine [Mass/Vol] 0.66 mg/dL 0.50 - 1.20 mg/dL [facility] GFR/1.73 sq M.predicted CKD-EPI (S/P/Bld) [Vol rate/Area] - PINF [facility] Comment on above: Reported eGFR is bas ed on the CKD-EPI 2020 equation using creatinine, age, and sex. Glucose [Mass/Vol] 93 mg/dL 70 - 99 mg/dL [facility] Osmolality Calc [Osmolality] [address] [facility] Potassium [Moles/Vol] 4.2 mmol/L 3.5 - 5.0 mmol/L [facility] Sodium [Moles/Vol] 139 mmol/L 135 - 145 mmol/L [facility] Urea nitrogen [Mass/Vol] 5 mg/dL Low 7 - 25 mg/dL [facility] Urea nitrogen/Creatinine [Mass ratio] 8 mg/mg [facility] MAGNESIUMon 05-29-2022 Magnesium [Mass/Vol] 2.1 mg/dL Normal 1.6-2.6 [facility] Comment on above: Performed By: #### RODRIGO Rangel, CHARLIE7, MGO #### [facility] (DEFAULT) [address] [place] [address]34 Magnesium [Mass/Vol] 2.1 mg/dL 1.6 - 2 .6 mg/dL [facility] No Panel Informationon 05-29 Interpretation and review of laboratory results Abnormal [facility] Interpretation and review of laboratory results Normal [facility] PHOSPHATE, INORGANICon 05-29 Phosphorous 4.8 mg/dL High 2.2-4.6 [facility] Comment on above: Performed By: #### RODRIGO Rangel, CHM7, MGO #### [facility] (DEFAULT) [address] [place] [address] 62381 Phosphate [Mass/Vol] 4.8 mg/dL High 2.2 - 4 .6 mg/dL [facility] CALCIUMon 05-28-2022 Calcium [Mass/Vol] 8.6 mg/dL Normal 8.6-10.5 [facility] Comment on above: Performed By: #### C Danielle, IPB, CHM7, MGO #### [facility] (DEFAULT) [address] [place] [address] 39179 Calcium [Mass/Vol] 8.6 mg/dL 8.6 - 10. 5 mg/dL [facility] CBC,PLATELETSon 05-28-2022 Hematocrit (Bld) [Volume fraction] 30.5 % Low 34.9-44.3 [facility] Comment on above: Performed By: #### C Danielle, IPB, CHM7, MGO, HFP #### [facility] (DEFAULT) [address] [place] [address] 79837 Hemoglobin (Bld) [Mass/Vol] 9.8 g/dL Low 11.4-15.2 [facility] Comment on above: Performed By: #### Dayday Santos, IPB, CHM7, MGO, HFP #### [facility] (DEFAULT) [address] [place] [address] 92822 MCV (RBC) [Entitic vol] 83.6 fL Normal 79.6-97.7 [facility] Comment on above: Performed By: #### Dayday Santos, IPB, CHM7, MGO, HFP #### [facility] (DEFAULT) [address] [place] [address] 59949 Mean Cell Hgb 26.8 pg Normal 25.9-33.9 [facility] Comment on above: Performed By: #### Dayday Santos, IPB, CHM7, MGO, HFP #### [facility] (DEFAULT) [address] [place] [address] 91547 Mean Cell Hgb Conc 32.1 g/dL Normal 31.4-35.9 [facility] Comment on above: Performed By: #### Dayday Santos, IPB, CHM7, MGO, HFP #### [facility] (DEFAULT) [address] [place] [address] 25094 Platelet mean volume (Bld) [Entitic vol] 9.3 fL Normal 8.5-12.2 [facility] Comment on above: Performed By: #### C A, IPB, CHM7, MGO, HFP #### [facility] (DEFAULT) [address] [place] [address] 37338 Platelets (Bld) [#/Vol] 374 10*3/uL Normal 150-393 [facility] Comment on above: Performed By: #### C A, IPB, CHM7, MGO, HFP #### [facility] (DEFAULT) [address] [place] [address] 84672 RBC (Bld) [#/Vol] 3.65 10*6/uL Low 3.91-5.04 [facility] Comment on above: Performed By: #### C A, IPB, CHM7, MGO, HFP #### [facility] (DEFAULT) [address] [place] [address] 77343 RBC Distribution 13.0 % Normal 10.8-14.9 [facility] Comment on above: Performed By: #### C A, IPB, CHM7, MGO, HFP #### [facility] (DEFAULT) [address] [place] [address] 62521 WBC (Bld) [#/Vol] 6.07 10*3/uL Normal 3.99-11.19 [facility] Comment on above: Performed By: #### C A, IPB, CHM7, MGO, HFP #### [facility] (DEFAULT) [address] [place] [address] 21002 Erythrocyte distribution width (RBC) [Ratio] 13.0 % 10.8 - 14.9 % [facility] Hematocrit (Bld) [Volume fraction] 30.5 % Low 34.9 - 44.3 % [facility] Hemoglobin (Bld) [Mass/Vol] 9.8 g/dL Low 11.4 - 15.2 g/dL [facility] Interpretation and review of laboratory results Abnormal [facility] MCH (RBC) [Entitic mass] 26.8 pg 25.9 - 33.[address] [facility] MCHC (RBC) [Mass/Vol] 32.1 g/dL 31.4 - 35.9 g/dL [facility] MCV (RBC) [Entitic vol] 83.6 fL 79.6 - 97.[address] [facility] Platelet mean volume (Bld) [Entitic vol] 9.3 fL 8.5 - 12.[address] [facility] Platelets (Bld) [#/Vol] 374 10*3/uL 150 - 393 K/uL [facility] RBC (Bld) [#/Vol] 3.65 10*6/uL Low [facility] WBC (Bld) [#/Vol] 6.07 10*3/uL 3.99 - 11. 19 K/uL [facility] CHEM 7 (LYTES,BUN,CREA,GLUC) on 05-28-2022 Anion gap [Moles/Vol] 11 mmol/L Normal 7-17 [facility] Comment on above: Performed By: #### C A, IPB, CHM7, MGO #### [facility] (DEFAULT) [address] [place] [address] 63780 Chloride [Moles/Vol] 106 mmol/L Normal 98-108 [facility] Comment on above: Performed By: #### C A, IPB, CHM7, MGO #### [facility] (DEFAULT) [address] [place] [address] CO2 [Moles/Vol] 25 mmol/L Normal 21-31 [facility] Comment on above: Performed By: #### C A, IPB, CHM7, MGO #### [facility] (DEFAULT) [address] [place] [address] 80628 Creatinine [Mass/Vol] 0.50 mg/dL Normal 0.50-1.20 [facility] Comment on above: Performed By: #### C SHANEKA SantosB, CHM7, MGO #### [facility] (DEFAULT) [address] [place] [address] 96321 eGFR, CKD-EPI, Female > Normal >=60 [facility] Comment on above: Result Comment: Repo rted eGFR is based on the CKD-EPI 2020 equation using creatinine, age, and sex. Performed By: #### Dayday Santos, IPB, CHM7, MGO #### [facility] (DEFAULT) [address] [place] [address] 81052 Glucose [Mass/Vol] 89 mg/dL Normal 70-99 [facility] Comment on above: Performed By: #### Dayday Santos IPB, CHM7, MGO #### [facility] (DEFAULT) [address] [place] [address] 38992 Osmolality [Osmolality] 285 mosm/kg Normal 278-305 [facility] Comment on above: Performed By: #### Dayday Santos IPB, CHM7, MGO #### [facility] (DEFAULT) [address] [place] [address] 86997 Potassium [Moles/Vol] 4.1 mmol/L Normal 3.5-5.0 [facility] Comment on above: Performed By: #### Dayday Santos, IPB, CHM7, MGO #### [facility] (DEFAULT) [address] [place] [address] 00342 Sodium [Moles/Vol] 138 mmol/L Normal 135-145 [facility] Comment on above: Performed By: #### Dayday Santos, IPB, CHM7, MGO #### [facility] (DEFAULT) [address] [place] [address] 26502 Urea nitrogen [Mass/Vol] 3 mg/dL Low 7-25 [facility] Comment on above: Performed By: #### Dayday A, IPB, CHM7, MGO #### [facility] (DEFAULT) [address] [place] [address] Urea nitrogen/Creatinine [Mass ratio] 6 mg/mg Normal [facility] Comment on above: Performed By: #### C RODRIGO Santos CHM7, MGO #### [facility] (DEFAULT) [address] [place] [address] Anion gap [Moles/Vol] 11 mmol/L 7 - 17 mmol/L [facility] Chloride [Moles/Vol] 106 mmol/L 98 - 10 8 mmol/L [facility] CO2 [Moles/Vol] 25 mmol/L 21 - 31 mmol/L [facility] Creatinine [Mass/Vol] 0.50 mg/dL 0.50 - 1.20 mg/dL [facility] GFR/1.73 sq M.predicted CKD-EPI (S/P/Bld) [Vol rate/Area] - PINF [facility] Comment on above: Reported eGFR is bas ed on the CKD-EPI 2020 equation using creatinine, age, and sex. Glucose [Mass/Vol] 89 mg/dL 70 - 99 mg/dL [facility] Osmolality Calc [Osmolality] [address] [facility] Potassium [Moles/Vol] 4.1 mmol/L 3.5 - 5.0 mmol/L [facility] Sodium [Moles/Vol] 138 mmol/L 135 - 145 mmol/L [facility] Urea nitrogen [Mass/Vol] 3 mg/dL Low 7 - 25 mg/dL [facility] Urea nitrogen/Creatinine [Mass ratio] 6 mg/mg [facility] MAGNESIUMon 05-28-2022 Magnesium [Mass/Vol] 1.8 mg/dL Normal 1.6-2.6 [facility] Comment on above: Performed By: #### C RODRIGO Santos CHM7, MGO #### [facility] (DEFAULT) [address] [place] [address] Magnesium [Mass/Vol] 1.8 mg/dL 1.6 - 2 .6 mg/dL [facility] No Panel Informationon 05-28 Interpretation and review of laboratory results Abnormal [facility] Interpretation and review of laboratory results Normal [facility] PHOSPHATE, INORGANICon 05-28 Phosphorous 4.9 mg/dL High 2.2-4.6 [facility] Comment on above: Performed By: #### RODRIGO Rangel CHM7, MGO #### [facility] (DEFAULT) [address] [place] [address] 74648 Phosphate [Mass/Vol] 4.9 mg/dL High 2.2 - 4 .6 mg/dL [facility] CALCIUMon 05-27-2022 Calcium [Mass/Vol] 8.6 mg/dL Normal 8.6-10.5 [facility] Comment on above: Performed By: #### RODRIGO Rangel CHM7, MGO #### [facility] (DEFAULT) [address] [place] [address] 63577 Calcium [Mass/Vol] 8.6 mg/dL 8.6 - 10. 5 mg/dL [facility] CBC,PLATELETSon 05-27-2022 Hematocrit (Bld) [Volume fraction] 31.1 % Low 34.9-44.3 [facility] Comment on above: Performed By: #### RODRIGO Rangel CHM7, MGO #### [facility] (DEFAULT) [address] [place] [address] 05536 Hemoglobin (Bld) [Mass/Vol] 10.1 g/dL Low 11.4-15.2 [facility] Comment on above: Performed By: #### RODRIGO Rangel CHM7, MGO #### [facility] (DEFAULT) [address] [place] [address] 85799 MCV (RBC) [Entitic vol] 83.8 fL Normal 79.6-97.7 [facility] Comment on above: Performed By: #### RODRIGO Rangel CHM7, MGO #### [facility] (DEFAULT) [address] [place] [address] 25701 Mean Cell Hgb 27.2 pg Normal 25.9-33.9 [facility] Comment on above: Performed By: #### C A, IPB, CHM7, MGO #### [facility] (DEFAULT) [address] [place] [address] 38381 Mean Cell Hgb Conc 32.5 g/dL Normal 31.4-35.9 [facility] Comment on above: Performed By: #### C A, IPB, CHM7, MGO #### [facility] (DEFAULT) [address] [place] [address] 80815 Platelet mean volume (Bld) [Entitic vol] 9.2 fL Normal 8.5-12.2 [facility] Comment on above: Performed By: #### C A, IPB, CHM7, MGO #### [facility] (DEFAULT) [address] [place] [address] 10524 Platelets (Bld) [#/Vol] 344 10*3/uL Normal 150-393 [facility] Comment on above: Performed By: #### C A, IPB, CHM7, MGO #### [facility] (DEFAULT) [address] [place] [address] 57248 RBC (Bld) [#/Vol] 3.71 10*6/uL Low 3.91-5.04 [facility] Comment on above: Performed By: #### C A, IPB, CHM7, MGO #### [facility] (DEFAULT) [address] [place] [address] 49024 RBC Distribution 12.9 % Normal 10.8-14.9 [facility] Comment on above: Performed By: #### C A, IPB, CHM7, MGO #### [facility] (DEFAULT) [address] [place] [address] 66210 WBC (Bld) [#/Vol] 6.21 10*3/uL Normal 3.99-11.19 [facility] Comment on above: Performed By: #### RODRIGO Rangel CHM7, SYBIL #### [facility] (DEFAULT) [address] [place] [address] Erythrocyte distribution width (RBC) [Ratio] 12.9 % 10.8 - 14.9 % [facility] Hematocrit (Bld) [Volume fraction] 31.1 % Low 34.9 - 44.3 % [facility] Hemoglobin (Bld) [Mass/Vol] 10.1 g/dL Low 11.4 - 15.2 g/dL [facility] Interpretation and review of laboratory results Abnormal [facility] MCH (RBC) [Entitic mass] 27.2 pg 25.9 - 33.[address] [facility] MCHC (RBC) [Mass/Vol] 32.5 g/dL 31.4 - 35.9 g/dL [facility] MCV (RBC) [Entitic vol] 83.8 fL 79.6 - 97.[address] [facility] Platelet mean volume (Bld) [Entitic vol] 9.2 fL 8.5 - 12.[address] [facility] Platelets (Bld) [#/Vol] 344 10*3/uL 150 - 393 K/uL [facility] RBC (Bld) [#/Vol] 3.71 10*6/uL Low [facility] WBC (Bld) [#/Vol] 6.21 10*3/uL 3.99 - 11. 19 K/uL [facility] CHEM 7 (LYTES,BUN,CREA,GLUC) on 05-27-2022 Anion gap [Moles/Vol] 11 mmol/L Normal 7-17 [facility] Comment on above: Performed By: #### RODRIGO Rangel CHM7, SYBIL #### [facility] (DEFAULT) [address] [place] [address] Chloride [Moles/Vol] 105 mmol/L Normal 98-108 [facility] Comment on above: Performed By: #### C A, IPB, CHM7, MGO #### [facility] (DEFAULT) [address] [place] [address] 52037 CO2 [Moles/Vol] 26 mmol/L Normal 21-31 [facility] Comment on above: Performed By: #### C A, IPB, CHM7, MGO #### [facility] (DEFAULT) [address] [place] [address] 48995 Creatinine [Mass/Vol] 0.49 mg/dL Low 0.50-1.20 [facility] Comment on above: Performed By: #### C A, IPB, CHM7, MGO #### [facility] (DEFAULT) [address] [place] [address] 45565 eGFR, CKD-EPI, Female > Normal >=60 [facility] Comment on above: Result Comment: Repo rted eGFR is based on the CKD-EPI 2020 equation using creatinine, age, and sex. Performed By: #### C A, IPB, CHM7, MGO #### [facility] (DEFAULT) [address] [place] [address] 29494 Glucose [Mass/Vol] 93 mg/dL Normal 70-99 [facility] Comment on above: Performed By: #### C A, IPB, CHM7, MGO #### [facility] (DEFAULT) [address] [place] [address] 74023 Osmolality [Osmolality] 285 mosm/kg Normal 278-305 [facility] Comment on above: Performed By: #### C A, IPB, CHM7, MGO #### [facility] (DEFAULT) [address] [place] [address] 60284 Potassium [Moles/Vol] 4.0 mmol/L Normal 3.5-5.0 [facility] Comment on above: Performed By: #### C A, IPB, CHM7, MGO #### [facility] (DEFAULT) [address] [place] [address] 96947 Sodium [Moles/Vol] 138 mmol/L Normal 135-145 [facility] Comment on above: Performed By: #### C RODRIGO Santos CHM7, MGO #### [facility] (DEFAULT) [address] [place] [address] 43451 Urea nitrogen [Mass/Vol] 3 mg/dL Low 7-25 [facility] Comment on above: Performed By: #### RODRIGO Rangel CHM7, MGO #### [facility] (DEFAULT) [address] [place] [address] 35606 Urea nitrogen/Creatinine [Mass ratio] 6 mg/mg Normal [facility] Comment on above: Performed By: #### RODRIGO Rangel CHM7, MGO #### [facility] (DEFAULT) [address] [place] [address] 28400 Anion gap [Moles/Vol] 11 mmol/L 7 - 17 mmol/L [facility] Chloride [Moles/Vol] 105 mmol/L 98 - 10 8 mmol/L [facility] CO2 [Moles/Vol] 26 mmol/L 21 - 31 mmol/L [facility] Creatinine [Mass/Vol] 0.49 mg/dL Low 0.50 - 1.20 mg/dL [facility] GFR/1.73 sq M.predicted CKD-EPI (S/P/Bld) [Vol rate/Area] - PINF [facility] Comment on above: Reported eGFR is bas ed on the CKD-EPI 2020 equation using creatinine, age, and sex. Glucose [Mass/Vol] 93 mg/dL 70 - 99 mg/dL [facility] Interpretation and review of laboratory results Abnormal [facility] Osmolality Calc [Osmolality] [address] [facility] Potassium [Moles/Vol] 4.0 mmol/L 3.5 - 5.0 mmol/L [facility] Sodium [Moles/Vol] 138 mmol/L 135 - 145 mmol/L [facility] Urea nitrogen [Mass/Vol] 3 mg/dL Low 7 - 25 mg/dL [facility] Urea nitrogen/Creatinine [Mass ratio] 6 mg/mg [facility] MAGNESIUMon 05-27-2022 Magnesium [Mass/Vol] 1.9 mg/dL Normal 1.6-2.6 [facility] Comment on above: Performed By: #### RODRIGO Rangel CHM7, MGO #### [facility] (DEFAULT) [address] [place] [address] 77086 Magnesium [Mass/Vol] 1.9 mg/dL 1.6 - 2 .6 mg/dL [facility] No Panel Informationon 05-27 Interpretation and review of laboratory results Normal [facility] PHOSPHATE, INORGANICon 05-27 Phosphorous 4.5 mg/dL Normal 2.2-4.6 [facility] Comment on above: Performed By: #### RODRIGO Rangel CHM7, MGO #### [facility] (DEFAULT) [address] [place] [address] 01983 Phosphate [Mass/Vol] 4.5 mg/dL 2.2 - 4 .6 mg/dL [facility] CALCIUMon 05-26-2022 Calcium [Mass/Vol] 8.4 mg/dL Low 8.6-10.5 [facility] Comment on above: Performed By: #### RODRIGO Rangel CHM7, MGO #### [facility] (DEFAULT) [address] [place] [address] 71375 Calcium [Mass/Vol] 8.4 mg/dL Low 8.6 - 10. 5 mg/dL [facility] CBC,PLATELETSon 05-26-2022 Hematocrit (Bld) [Volume fraction] 31.5 % Low 34.9-44.3 [facility] Comment on above: Performed By: #### Y CHGRA #### [facility] (DEFAULT) [address] [place] [address] 31338 Hemoglobin (Bld) [Mass/Vol] 10.0 g/dL Low 11.4-15.2 [facility] Comment on above: Performed By: #### Y CHGRA #### [facility] (DEFAULT) [address] [address] MCV (RBC) [Entitic vol] 84.9 fL Normal 79.6-97.7 [facility] Comment on above: Performed By: #### Y CHGRA #### [facility] (DEFAULT) [address] 11625 Mean Cell Hgb 27.0 pg Normal 25.9-33.9 [facility] Comment on above: Performed By: #### Y CHGRA #### [facility] (DEFAULT) [address] 96784 Mean Cell Hgb Conc 31.7 g/dL Normal 31.4-35.9 [facility] Comment on above: Performed By: #### Y CHGRA #### [facility] (DEFAULT) [address] [address]85 Platelet mean volume (Bld) [Entitic vol] 9.7 fL Normal 8.5-12.2 [facility] Comment on above: Performed By: #### Y CHGRA #### [facility] (DEFAULT) [address] [address]398 Platelets (Bld) [#/Vol] 327 10*3/uL Normal 150-393 [facility] Comment on above: Performed By: #### Y CHGRA #### [facility] (DEFAULT) [address] 21273 RBC (Bld) [#/Vol] 3.71 10*6/uL Low 3.91-5.04 [facility] Comment on above: Performed By: #### Y CHGRA #### [facility] (DEFAULT) [address] [address]78 RBC Distribution 12.8 % Normal 10.8-14.9 [facility] Comment on above: Performed By: #### Y CHGRA #### [facility] (DEFAULT) [address] [place] [address] WBC (Bld) [#/Vol] 7.91 10*3/uL Normal 3.99-11.19 [facility] Comment on above: Performed By: #### Y CHGRA #### [facility] (DEFAULT) [address] [place] [address] Erythrocyte distribution width (RBC) [Ratio] 12.8 % 10.8 - 14.9 % [facility] Hematocrit (Bld) [Volume fraction] 31.5 % Low 34.9 - 44.3 % [facility] Hemoglobin (Bld) [Mass/Vol] 10.0 g/dL Low 11.4 - 15.2 g/dL [facility] Interpretation and review of laboratory results Abnormal [facility] MCH (RBC) [Entitic mass] 27.0 pg 25.9 - 33.[address] [facility] MCHC (RBC) [Mass/Vol] 31.7 g/dL 31.4 - 35.9 g/dL [facility] MCV (RBC) [Entitic vol] 84.9 fL 79.6 - 97.[address] [facility] Platelet mean volume (Bld) [Entitic vol] 9.7 fL 8.5 - 12.[address] [facility] Platelets (Bld) [#/Vol] 327 10*3/uL 150 - 393 K/uL [facility] RBC (Bld) [#/Vol] 3.71 10*6/uL Low [facility] WBC (Bld) [#/Vol] 7.91 10*3/uL 3.99 - 11. 19 K/uL [facility] CHEM 7 (LYTES,BUN,CREA,GLUC) on 05-26-2022 Anion gap [Moles/Vol] 13 mmol/L Normal 7-17 [facility] Comment on above: Performed By: #### Y CHGRA #### [facility] (DEFAULT) [address] [place] [address] 16801 Chloride [Moles/Vol] 102 mmol/L Normal 98-108 [facility] Comment on above: Performed By: #### Y CHGRA #### [facility] (DEFAULT) [address] [place] [address] 45105 CO2 [Moles/Vol] 23 mmol/L Normal 21-31 [facility] Comment on above: Performed By: #### Y CHGRA #### [facility] (DEFAULT) [address] [place] [address] 61566 Creatinine [Mass/Vol] 0.48 mg/dL Low 0.50-1.20 [facility] Comment on above: Performed By: #### Y CHGRA #### [facility] (DEFAULT) [address] [place] [address] 15350 eGFR, CKD-EPI, Female > Normal >=60 [facility] Comment on above: Result Comment: Repo rted eGFR is based on the CKD-EPI 2020 equation using creatinine, age, and sex. Performed By: #### Y CHGRA #### [facility] (DEFAULT) [address] [place] [address] 25096 Glucose [Mass/Vol] 154 mg/dL High 70-99 [facility] Comment on above: Performed By: #### Y CHGRA #### [facility] (DEFAULT) [address] [place] [address] 31056 Osmolality [Osmolality] 282 mosm/kg Normal 278-305 [facility] Comment on above: Performed By: #### Y CHGRA #### [facility] (DEFAULT) [address] [place] [address] 01060 Potassium [Moles/Vol] 4.1 mmol/L Normal 3.5-5.0 [facility] Comment on above: Performed By: #### Y CHGRA #### [facility] (DEFAULT) [address] [place] [address] 81045 Sodium [Moles/Vol] 134 mmol/L Low 135-145 [facility] Comment on above: Performed By: #### Y CHGRA #### [facility] (DEFAULT) [address] [place] [address] Urea nitrogen [Mass/Vol] 3 mg/dL Low 7-25 [facility] Comment on above: Performed By: #### Y CHGRA #### [facility] (DEFAULT) [address] [place] [address] Urea nitrogen/Creatinine [Mass ratio] 6 mg/mg Normal [facility] Comment on above: Performed By: #### Y CHGRA #### [facility] (DEFAULT) [address] [place] [address] 68578 Anion gap [Moles/Vol] 13 mmol/L 7 - 17 mmol/L [facility] Chloride [Moles/Vol] 102 mmol/L 98 - 10 8 mmol/L [facility] CO2 [Moles/Vol] 23 mmol/L 21 - 31 mmol/L [facility] Creatinine [Mass/Vol] 0.48 mg/dL Low 0.50 - 1.20 mg/dL [facility] GFR/1.73 sq M.predicted CKD-EPI (S/P/Bld) [Vol rate/Area] - PINF [facility] Comment on above: Reported eGFR is bas ed on the CKD-EPI 2020 equation using creatinine, age, and sex. Glucose [Mass/Vol] 154 mg/dL High 70 - 99 mg/dL [facility] Osmolality Calc [Osmolality] [address] [facility] Potassium [Moles/Vol] 4.1 mmol/L 3.5 - 5.0 mmol/L [facility] Sodium [Moles/Vol] 134 mmol/L Low 135 - 145 mmol/L [facility] Urea nitrogen [Mass/Vol] 3 mg/dL Low 7 - 25 mg/dL [facility] Urea nitrogen/Creatinine [Mass ratio] 6 mg/mg [facility] MAGNESIUMon 05-26-2022 Magnesium [Mass/Vol] 1.8 mg/dL Normal 1.6-2.6 [facility] Comment on above: Performed By: #### Y RAEANNA #### [facility] (DEFAULT) [address] [place] [address] 65001 Magnesium [Mass/Vol] 1.8 mg/dL 1.6 - 2 .6 mg/dL [facility] No Panel Informationon 05-26 Interpretation and review of laboratory results Abnormal [facility] Interpretation and review of laboratory results Normal [facility] [place] PHOSPHATE, INORGANICon 05-26 Phosphorous 3.4 mg/dL Normal 2.2-4.6 [facility] Comment on above: Performed By: #### Y MU #### [facility] (DEFAULT) [address] [place] [address] 94080 Phosphate [Mass/Vol] 3.4 mg/dL 2.2 - 4 .6 mg/dL [facility] CALCIUMon 05-25-2022 Calcium [Mass/Vol] 8.5 mg/dL Low 8.6 - 10. 5 mg/dL [facility] Calcium [Mass/Vol] 8.5 mg/dL Low 8.6-10.5 [facility] Comment on above: Performed By: #### SHANEKA RangelB, CHM7, MGO #### [facility] (DEFAULT) [address] [place] [address] 99359 CBC,PLATELETSon 05-25-2022 Hematocrit (Bld) [Volume fraction] 31.7 % Low 34.9-44.3 [facility] Comment on above: Performed By: #### SHANEKA RangelB, CHM7, MGO #### [facility] (DEFAULT) [address] [place] [address] 09024 Hemoglobin (Bld) [Mass/Vol] 9.8 g/dL Low 11.4-15.2 [facility] Comment on above: Performed By: #### Dayday A, IPB, CHM7, MGO #### [facility] (DEFAULT) [address] [place] [address] 12530 MCV (RBC) [Entitic vol] 85.9 fL Normal 79.6-97.7 [facility] Comment on above: Performed By: #### C A, IPB, CHM7, MGO #### [facility] (DEFAULT) [address] [place] [address] 21087 Mean Cell Hgb 26.6 pg Normal 25.9-33.9 [facility] Comment on above: Performed By: #### C A, IPB, CHM7, MGO #### [facility] (DEFAULT) [address] [place] [address] 62185 Mean Cell Hgb Conc 30.9 g/dL Low 31.4-35.9 [facility] Comment on above: Performed By: #### C A, IPB, CHM7, MGO #### [facility] (DEFAULT) [address] [place] [address] 25159 Platelet mean volume (Bld) [Entitic vol] 9.7 fL Normal 8.5-12.2 [facility] Comment on above: Performed By: #### C A, IPB, CHM7, MGO #### [facility] (DEFAULT) [address] [place] [address] 72415 Platelets (Bld) [#/Vol] 292 10*3/uL Normal 150-393 [facility] Comment on above: Performed By: #### C A, IPB, CHM7, MGO #### [facility] (DEFAULT) [address] [place] [address] 65396 RBC (Bld) [#/Vol] 3.69 10*6/uL Low 3.91-5.04 [facility] Comment on above: Performed By: #### C A, IPB, CHM7, MGO #### [facility] (DEFAULT) [address] [place] [address] 44016 RBC Distribution 12.8 % Normal 10.8-14.9 [facility] Comment on above: Performed By: #### C RODRIGO Santos, HUBERT, MGO #### [facility] (DEFAULT) [address] [place] [address] WBC (Bld) [#/Vol] 9.85 10*3/uL Normal 3.99-11.19 [facility] Comment on above: Performed By: #### RODRIGO Rangel, HUBERT, MGO #### [facility] (DEFAULT) [address] [place] [address] Erythrocyte distribution width (RBC) [Ratio] 12.8 % 10.8 - 14.9 % [facility] Hematocrit (Bld) [Volume fraction] 31.7 % Low 34.9 - 44.3 % [facility] Hemoglobin (Bld) [Mass/Vol] 9.8 g/dL Low 11.4 - 15.2 g/dL [facility] Interpretation and review of laboratory results Abnormal [facility] MCH (RBC) [Entitic mass] 26.6 pg 25.9 - 33.[address] [facility] MCHC (RBC) [Mass/Vol] 30.9 g/dL Low 31.4 - 35.9 g/dL [facility] MCV (RBC) [Entitic vol] 85.9 fL 79.6 - 97.[address] [facility] Platelet mean volume (Bld) [Entitic vol] 9.7 fL 8.5 - 12.[address] [facility] Platelets (Bld) [#/Vol] 292 10*3/uL 150 - 393 K/uL [facility] RBC (Bld) [#/Vol] 3.69 10*6/uL Low [facility] WBC (Bld) [#/Vol] 9.85 10*3/uL 3.99 - 11. 19 K/uL [facility] [place] CHEM 7 (LYTES,BUN,CREA,GLUC) on 05-25-2022 Anion gap [Moles/Vol] 13 mmol/L 7 - 17 mmol/L [facility] Chloride [Moles/Vol] 104 mmol/L 98 - 10 8 mmol/L [facility] CO2 [Moles/Vol] 24 mmol/L 21 - 31 mmol/L [facility] Creatinine [Mass/Vol] 0.51 mg/dL 0.50 - 1.20 mg/dL [facility] GFR/1.73 sq M.predicted CKD-EPI (S/P/Bld) [Vol rate/Area] - PINF [facility] Comment on above: Reported eGFR is bas ed on the CKD-EPI 2020 equation using creatinine, age, and sex. Glucose [Mass/Vol] 98 mg/dL 70 - 99 mg/dL [facility] Osmolality Calc [Osmolality] [address] [facility] Potassium [Moles/Vol] 4.0 mmol/L 3.5 - 5.0 mmol/L [facility] Sodium [Moles/Vol] 137 mmol/L 135 - 145 mmol/L [facility] Urea nitrogen [Mass/Vol] 2 mg/dL Low 7 - 25 mg/dL [facility] Urea nitrogen/Creatinine [Mass ratio] 4 mg/mg [facility] Anion gap [Moles/Vol] 13 mmol/L Normal 7-17 [facility] Comment on above: Performed By: #### RODRIGO Rangel, CHM7, MGO #### [facility] (DEFAULT) [address] [place] [address] Chloride [Moles/Vol] 104 mmol/L Normal 98-108 [facility] Comment on above: Performed By: #### RODRIGO Rangel, CHM7, MGO #### [facility] (DEFAULT) [address] [place] [address] CO2 [Moles/Vol] 24 mmol/L Normal 21-31 [facility] Comment on above: Performed By: #### RODRIGO Rangel, CHM7, MGO #### [facility] (DEFAULT) [address] [place] [address] Creatinine [Mass/Vol] 0.51 mg/dL Normal 0.50-1.20 [facility] Comment on above: Performed By: #### C Danielle, IPB, CHM7, MGO #### [facility] (DEFAULT) [address] [place] [address] 07290 eGFR, CKD-EPI, Female > Normal >=60 [facility] Comment on above: Result Comment: Repo rted eGFR is based on the CKD-EPI 2020 equation using creatinine, age, and sex. Performed By: #### C A, IPB, CHM7, MGO #### [facility] (DEFAULT) [address] [place] [address] 54730 Glucose [Mass/Vol] 98 mg/dL Normal 70-99 [facility] Comment on above: Performed By: #### Dayday Santos, IPB, CHM7, MGO #### [facility] (DEFAULT) [address] [place] [address] 20930 Osmolality [Osmolality] 283 mosm/kg Normal 278-305 [facility] Comment on above: Performed By: #### Dayday Satnos, IPB, CHM7, MGO #### [facility] (DEFAULT) [address] [place] [address] 47926 Potassium [Moles/Vol] 4.0 mmol/L Normal 3.5-5.0 [facility] Comment on above: Performed By: #### Dayday A, IPB, CHM7, MGO #### [facility] (DEFAULT) [address] [place] [address] 25199 Sodium [Moles/Vol] 137 mmol/L Normal 135-145 [facility] Comment on above: Performed By: #### Dayday A, IPB, CHM7, MGO #### [facility] (DEFAULT) [address] [place] [address] 31901 Urea nitrogen [Mass/Vol] 2 mg/dL Low 7-25 [facility] Comment on above: Performed By: #### Dayday A, IPB, CHM7, MGO #### [facility] (DEFAULT) [address] [place] [address] 31407 Urea nitrogen/Creatinine [Mass ratio] 4 mg/mg Normal [facility] Comment on above: Performed By: #### RODRIGO Rangel CHM7, MGO #### [facility] (DEFAULT) [address] [place] [address] 93477 MAGNESIUMon 05-25-2022 Magnesium [Mass/Vol] 1.8 mg/dL 1.6 - 2 .6 mg/dL [facility] Magnesium [Mass/Vol] 1.8 mg/dL Normal 1.6-2.6 [facility] Comment on above: Performed By: #### RODRIGO Rangel CHM7, MGO #### [facility] (DEFAULT) [address] [place] [address] 71571 No Panel Informationon 05-25 Interpretation and review of laboratory results Abnormal [facility] Interpretation and review of laboratory results Normal [facility] [place] PHOSPHATE, INORGANICon 05-25 Phosphate [Mass/Vol] 3.2 mg/dL 2.2 - 4 .6 mg/dL [facility] Phosphorous 3.2 mg/dL Normal 2.2-4.6 [facility] Comment on above: Performed By: #### RODRIGO Rangel, HUBERT, MGO #### [facility] (DEFAULT) [address] [place] [address] 78044 CALCIUMon 05-24-2022 Calcium [Mass/Vol] 7.9 mg/dL Low 8.6-10.5 [facility] Comment on above: Performed By: #### RODRIGO Rangel, HUBERT, MGO, HFP #### [facility] (DEFAULT) [address] [place] [address] 68740 Calcium [Mass/Vol] 7.9 mg/dL Low 8.6 - 10. 5 mg/dL [facility] CBC,PLATELETSon 05-24-2022 Hematocrit (Bld) [Volume fraction] 33.0 % Low 34.9-44.3 [facility] Comment on above: Performed By: #### Y CHGRA #### [facility] (DEFAULT) [address] [address] Hemoglobin (Bld) [Mass/Vol] 10.4 g/dL Low 11.4-15.2 [facility] Comment on above: Performed By: #### Y CHGRA #### [facility] (DEFAULT) [address] [address] MCV (RBC) [Entitic vol] 86.2 fL Normal 79.6-97.7 [facility] Comment on above: Performed By: #### Y CHGRA #### [facility] (DEFAULT) [address] 9[address]87 Mean Cell Hgb 27.2 pg Normal 25.9-33.9 [facility] Comment on above: Performed By: #### Y CHGRA #### [facility] (DEFAULT) [address] [address] Mean Cell Hgb Conc 31.5 g/dL Normal 31.4-35.9 [facility] Comment on above: Performed By: #### Y CHGRA #### [facility] (DEFAULT) [address] [address] Platelet mean volume (Bld) [Entitic vol] 9.7 fL Normal 8.5-12.2 [facility] Comment on above: Performed By: #### Y CHGRA #### [facility] (DEFAULT) [address] [address] Platelets (Bld) [#/Vol] 270 10*3/uL Normal 150-393 [facility] Comment on above: Performed By: #### Y CHGRA #### [facility] (DEFAULT) [address] [address] RBC (Bld) [#/Vol] 3.83 10*6/uL Low 3.91-5.04 [facility] Comment on above: Performed By: #### Y CHGRA #### [facility] (DEFAULT) [address] [place] [address] RBC Distribution 13.2 % Normal 10.8-14.9 [facility] Comment on above: Performed By: #### Y CHGRA #### [facility] (DEFAULT) [address] [place] [address] WBC (Bld) [#/Vol] 13.10 10*3/uL High 3.99-11.19 [facility] Comment on above: Performed By: #### Y CHGRA #### [facility] (DEFAULT) [address] [place] [address] 89916 Erythrocyte distribution width (RBC) [Ratio] 13.2 % 10.8 - 14.9 % [facility] Hematocrit (Bld) [Volume fraction] 33.0 % Low 34.9 - 44.3 % [facility] Hemoglobin (Bld) [Mass/Vol] 10.4 g/dL Low 11.4 - 15.2 g/dL [facility] Interpretation and review of laboratory results Abnormal [facility] MCH (RBC) [Entitic mass] 27.2 pg 25.9 - 33.[address] [facility] MCHC (RBC) [Mass/Vol] 31.5 g/dL 31.4 - 35.9 g/dL [facility] MCV (RBC) [Entitic vol] 86.2 fL 79.6 - 97.[address] [facility] Platelet mean volume (Bld) [Entitic vol] 9.7 fL 8.5 - 12.[address] [facility] Platelets (Bld) [#/Vol] 270 10*3/uL 150 - 393 K/uL [facility] RBC (Bld) [#/Vol] 3.83 10*6/uL Low [facility] WBC (Bld) [#/Vol] 13.10 10*3/uL High 3.99 - 11 .19 K/uL [facility] [place] CHEM 7 (LYTES,BUN,CREA,GLUC) on 05-24-2022 Anion gap [Moles/Vol] 10 mmol/L Normal 7-17 [facility] Comment on above: Performed By: #### C A, IPB, CHM7, MGO, HFP #### [facility] (DEFAULT) [address] [place] [address] 27243 Chloride [Moles/Vol] 105 mmol/L Normal 98-108 [facility] Comment on above: Performed By: #### C A, IPB, CHM7, MGO, HFP #### [facility] (DEFAULT) [address] [place] [address] 16711 CO2 [Moles/Vol] 24 mmol/L Normal 21-31 [facility] Comment on above: Performed By: #### C A, IPB, CHM7, MGO, HFP #### [facility] (DEFAULT) [address] [place] [address] 08114 Creatinine [Mass/Vol] 0.51 mg/dL Normal 0.50-1.20 [facility] Comment on above: Performed By: #### C A, IPB, CHM7, MGO, HFP #### [facility] (DEFAULT) [address] [place] [address] 74250 eGFR, CKD-EPI, Female > Normal >=60 [facility] Comment on above: Result Comment: Repo rted eGFR is based on the CKD-EPI 2020 equation using creatinine, age, and sex. Performed By: #### C A, IPB, CHM7, MGO, HFP #### [facility] (DEFAULT) [address] [place] [address] 22188 Glucose [Mass/Vol] 121 mg/dL High 70-99 [facility] Comment on above: Performed By: #### C A, IPB, CHM7, MGO, HFP #### [facility] (DEFAULT) [address] [place] [address] 69192 Osmolality [Osmolality] 281 mosm/kg Normal 278-305 [facility] Comment on above: Performed By: #### C A, IPB, CHM7, MGO, HFP #### [facility] (DEFAULT) [address] [place] [address] 73933 Potassium [Moles/Vol] 4.1 mmol/L Normal 3.5-5.0 [facility] Comment on above: Performed By: #### C A, IPB, CHM7, MGO, HFP #### [facility] (DEFAULT) [address] [place] [address] 98159 Sodium [Moles/Vol] 135 mmol/L Normal 135-145 [facility] Comment on above: Performed By: #### C A, IPB, CHM7, MGO, HFP #### [facility] (DEFAULT) [address] [place] [address] 23921 Urea nitrogen [Mass/Vol] 2 mg/dL Low 7-25 [facility] Comment on above: Performed By: #### C A, IPB, CHM7, MGO, HFP #### [facility] (DEFAULT) [address] [place] [address] 34959 Urea nitrogen/Creatinine [Mass ratio] 4 mg/mg Normal [facility] Comment on above: Performed By: #### C A, IPB, CHM7, MGO, HFP #### [facility] (DEFAULT) [address] [place] [address] 05837 Anion gap [Moles/Vol] 10 mmol/L 7 - 17 mmol/L [facility] Chloride [Moles/Vol] 105 mmol/L 98 - 10 8 mmol/L [facility] CO2 [Moles/Vol] 24 mmol/L 21 - 31 mmol/L [facility] Creatinine [Mass/Vol] 0.51 mg/dL 0.50 - 1.20 mg/dL [facility] GFR/1.73 sq M.predicted CKD-EPI (S/P/Bld) [Vol rate/Area] - PINF [facility] Comment on above: Reported eGFR is bas ed on the CKD-EPI 2020 equation using creatinine, age, and sex. Glucose [Mass/Vol] 121 mg/dL High 70 - 99 mg/dL [facility] Osmolality Calc [Osmolality] [address] [facility] Potassium [Moles/Vol] 4.1 mmol/L 3.5 - 5.0 mmol/L [facility] Sodium [Moles/Vol] 135 mmol/L 135 - 145 mmol/L [facility] Urea nitrogen [Mass/Vol] 2 mg/dL Low 7 - 25 mg/dL [facility] Urea nitrogen/Creatinine [Mass ratio] 4 mg/mg [facility] MAGNESIUMon 05-24-2022 Magnesium [Mass/Vol] 1.7 mg/dL Normal 1.6-2.6 [facility] Comment on above: Performed By: #### C Danielle, RODRIGO, MELVINM7, MGO, HFP #### [facility] (DEFAULT) [address] [place] [address] 01056 Interpretation and review of laboratory results Normal [facility] Magnesium [Mass/Vol] 1.7 mg/dL 1.6 - 2 .6 mg/dL [facility] No Panel Informationon 05-24 Interpretation and review of laboratory results Abnormal [facility] [place] PHOSPHATE, INORGANICon 05-24 Phosphorous 2.1 mg/dL Low 2.2-4.6 [facility] Comment on above: Performed By: #### C Danielle, IPB, CHM7, MGO, HFP #### [facility] (DEFAULT) [address] [place] [address] 74145 Phosphate [Mass/Vol] 2.1 mg/dL Low 2.2 - 4 .6 mg/dL [facility] CALCIUMon 05-23-2022 Calcium [Mass/Vol] 8.0 mg/dL Low 8.6-10.5 [facility] Comment on above: Performed By: #### C Danielle, IPB, CHM7, MGO #### [facility] (DEFAULT) [address] [place] [address] 62150 Calcium [Mass/Vol] 8.0 mg/dL Low 8.6 - 10. 5 mg/dL [facility] Interpretation and review of laboratory results Abnormal [facility] CBC,PLATELETSon 05-23-2022 Hematocrit (Bld) [Volume fraction] 38.4 % Normal 34.9-44.3 [facility] Comment on above: Performed By: #### Y CHGRA #### [facility] (DEFAULT) [address] [place] [address] 30846 Hemoglobin (Bld) [Mass/Vol] 12.3 g/dL Normal 11.4-15.2 [facility] Comment on above: Performed By: #### Y CHGRA #### [facility] (DEFAULT) [address] [place] [address] 54558 MCV (RBC) [Entitic vol] 83.7 fL Normal 79.6-97.7 [facility] Comment on above: Performed By: #### Y CHGRA #### [facility] (DEFAULT) [address] [place] [address] 84000 Mean Cell Hgb 26.8 pg Normal 25.9-33.9 [facility] Comment on above: Performed By: #### Y CHGRA #### [facility] (DEFAULT) [address] [place] [address] 75867 Mean Cell Hgb Conc 32.0 g/dL Normal 31.4-35.9 [facility] Comment on above: Performed By: #### Y CHGRA #### [facility] (DEFAULT) [address] [place] [address] 40503 Platelet mean volume (Bld) [Entitic vol] 9.6 fL Normal 8.5-12.2 [facility] Comment on above: Performed By: #### Y CHGRA #### [facility] (DEFAULT) [address] [place] [address] 98932 Platelets (Bld) [#/Vol] 354 10*3/uL Normal 150-393 [facility] Comment on above: Performed By: #### Y CHGRA #### [facility] (DEFAULT) [address] [place] [address] 19553 RBC (Bld) [#/Vol] 4.59 10*6/uL Normal 3.91-5.04 [facility] Comment on above: Performed By: #### Y CHGRA #### [facility] (DEFAULT) [address] [place] [address] 56298 RBC Distribution 13.0 % Normal 10.8-14.9 [facility] Comment on above: Performed By: #### Y CHGRA #### [facility] (DEFAULT) [address] [place] [address] 56571 WBC (Bld) [#/Vol] 12.80 10*3/uL High 3.99-11.19 [facility] Comment on above: Performed By: #### Y CHGRA #### [facility] (DEFAULT) [address] [place] [address] 64615 Erythrocyte distribution width (RBC) [Ratio] 13.0 % 10.8 - 14.9 % [facility] Hematocrit (Bld) [Volume fraction] 38.4 % 34.9 - 44.3 % [facility] Hemoglobin (Bld) [Mass/Vol] 12.3 g/dL 11.4 - 15.2 g/dL [facility] Interpretation and review of laboratory results Abnormal [facility] MCH (RBC) [Entitic mass] 26.8 pg 25.9 - 33.[address] [facility] MCHC (RBC) [Mass/Vol] 32.0 g/dL 31.4 - 35.9 g/dL [facility] MCV (RBC) [Entitic vol] 83.7 fL 79.6 - 97.[address] [facility] Platelet mean volume (Bld) [Entitic vol] 9.6 fL 8.5 - 12.[address] [facility] Platelets (Bld) [#/Vol] 354 10*3/uL 150 - 393 K/uL [facility] RBC (Bld) [#/Vol] 4.59 10*6/uL [facility] WBC (Bld) [#/Vol] 12.80 10*3/uL High 3.99 - 11 .19 K/uL [facility] [place] CHEM 7 (LYTES,BUN,CREA,GLUC) on 05-23-2022 Anion gap [Moles/Vol] 13 mmol/L Normal 7-17 [facility] Comment on above: Performed By: #### C A, IPB, CHM7, MGO #### [facility] (DEFAULT) [address] [place] [address] 68900 Chloride [Moles/Vol] 103 mmol/L Normal 98-108 [facility] Comment on above: Performed By: #### C A, IPB, CHM7, MGO #### [facility] (DEFAULT) [address] [place] [address] 62090 CO2 [Moles/Vol] 24 mmol/L Normal 21-31 [facility] Comment on above: Performed By: #### C A, IPB, CHM7, MGO #### [facility] (DEFAULT) [address] [place] [address] 62325 Creatinine [Mass/Vol] 0.68 mg/dL Normal 0.50-1.20 [facility] Comment on above: Performed By: #### C A, IPB, CHM7, MGO #### [facility] (DEFAULT) [address] [place] [address] 90201 eGFR, CKD-EPI, Female > Normal >=60 [facility] Comment on above: Result Comment: Repo rted eGFR is based on the CKD-EPI 2020 equation using creatinine, age, and sex. Performed By: #### C A, IPB, CHM7, MGO #### [facility] (DEFAULT) [address] [place] [address] 27706 Glucose [Mass/Vol] 148 mg/dL High 70-99 [facility] Comment on above: Performed By: #### C A, IPB, CHM7, MGO #### [facility] (DEFAULT) [address] [place] [address] 69294 Osmolality [Osmolality] 285 mosm/kg Normal 278-305 [facility] Comment on above: Performed By: #### C A, IPB, CHM7, MGO #### [facility] (DEFAULT) [address] [place] [address] Potassium [Moles/Vol] 4.9 mmol/L Normal 3.5-5.0 [facility] Comment on above: Performed By: #### Dayday A, IPB, CHM7, MGO #### [facility] (DEFAULT) [address] [place] [address] Sodium [Moles/Vol] 135 mmol/L Normal 135-145 [facility] Comment on above: Performed By: #### C A, IPB, CHM7, MGO #### [facility] (DEFAULT) [address] [place] [address] 84037 Urea nitrogen [Mass/Vol] 4 mg/dL Low 7-25 [facility] Comment on above: Performed By: #### C A, IPB, CHM7, MGO #### [facility] (DEFAULT) [address] [place] [address] 78561 Urea nitrogen/Creatinine [Mass ratio] 6 mg/mg Normal [facility] Comment on above: Performed By: #### C A, IPB, CHM7, MGO #### [facility] (DEFAULT) [address] [place] [address] 41989 CHEM 7 (LYTES,BUN,CREA,GLUC) Ordered By: Shraddha Munguia on 05-23-2022 Anion gap [Moles/Vol] 13 mmol/L 7 - 17 mmol/L [facility] Chloride [Moles/Vol] 103 mmol/L 98 - 10 8 mmol/L [facility] CO2 [Moles/Vol] 24 mmol/L 21 - 31 mmol/L [facility] Creatinine [Mass/Vol] 0.68 mg/dL 0.50 - 1.20 mg/dL [facility] GFR/1.73 sq M.predicted CKD-EPI (S/P/Bld) [Vol rate/Area] - PINF [facility] Comment on above: Reported eGFR is bas ed on the CKD-EPI 2020 equation using creatinine, age, and sex. Glucose [Mass/Vol] 148 mg/dL High 70 - 99 mg/dL [facility] Interpretation and review of laboratory results Abnormal [facility] Osmolality Calc [Osmolality] [address] [facility] Potassium [Moles/Vol] 4.9 mmol/L 3.5 - 5.0 mmol/L [facility] Sodium [Moles/Vol] 135 mmol/L 135 - 145 mmol/L [facility] Urea nitrogen [Mass/Vol] 4 mg/dL Low 7 - 25 mg/dL [facility] Urea nitrogen/Creatinine [Mass ratio] 6 mg/mg [facility] MAGNESIUMon 05-23-2022 Magnesium [Mass/Vol] 2.5 mg/dL Normal 1.6-2.6 [facility] Comment on above: Performed By: #### RODRIGO Rangel, CHM7, MGO #### [facility] (DEFAULT) [address] [place] [address] Magnesium [Mass/Vol] 2.5 mg/dL 1.6 - 2 .6 mg/dL [facility] No Panel Informationon 05-23 Interpretation and review of laboratory results Normal [facility] [place] PHOSPHATE, INORGANICon 05-23 Phosphorous 2.7 mg/dL Normal 2.2-4.6 [facility] Comment on above: Performed By: #### C Danielle IPBrett, CHM7, MGO #### [facility] (DEFAULT) [address] [place] [address] 77956 Phosphate [Mass/Vol] 2.7 mg/dL 2.2 - 4 .6 mg/dL [facility] BETA HCG, URINE (POC DEVICE) on 05-22-2022 Beta HCG ( test) Ql (U) Negative Negative [facility] Interpretation and review of laboratory results Normal [facility] Test performed at address of the patient encounter. [facility] [place] CALCIUMon 05-22-2022 Calcium [Mass/Vol] 7.8 mg/dL Low 8.6-10.5 [facility] Comment on above: Performed By: #### C A, IPB, CHM7, MGO, HFP #### [facility] (DEFAULT) [address] [address] Calcium [Mass/Vol] 7.8 mg/dL Low 8.6 - 10. 5 mg/dL [facility] CBC,PLATELETSon 05-22-2022 Hematocrit (Bld) [Volume fraction] 37.0 % Normal 34.9-44.3 [facility] Comment on above: Performed By: #### Y CHGRA #### [facility] (DEFAULT) [address] [place] [address] 85653 Hemoglobin (Bld) [Mass/Vol] 12.0 g/dL Normal 11.4-15.2 [facility] Comment on above: Performed By: #### Y CHGRA #### [facility] (DEFAULT) [address] [place] [address] 87382 MCV (RBC) [Entitic vol] 81.0 fL Normal 79.6-97.7 [facility] Comment on above: Performed By: #### Y CHGRA #### [facility] (DEFAULT) [address] [place] [address] 19014 Mean Cell Hgb 26.3 pg Normal 25.9-33.9 [facility] Comment on above: Performed By: #### Y CHGRA #### [facility] (DEFAULT) [address] [place] [address] 64497 Mean Cell Hgb Conc 32.4 g/dL Normal 31.4-35.9 [facility] Comment on above: Performed By: #### Y CHGRA #### [facility] (DEFAULT) [address] [place] [address] 62005 Platelet mean volume (Bld) [Entitic vol] 9.5 fL Normal 8.5-12.2 [facility] Comment on above: Performed By: #### Y CHGRA #### [facility] (DEFAULT) [address] [place] [address] 38062 Platelets (Bld) [#/Vol] 350 10*3/uL Normal 150-393 [facility] Comment on above: Performed By: #### Y CHGRA #### [facility] (DEFAULT) [address] [place] [address] 79119 RBC (Bld) [#/Vol] 4.57 10*6/uL Normal 3.91-5.04 [facility] Comment on above: Performed By: #### Y CHGRA #### [facility] (DEFAULT) [address] [place] [address] 42101 RBC Distribution 12.7 % Normal 10.8-14.9 [facility] Comment on above: Performed By: #### Y CHGRA #### [facility] (DEFAULT) [address] [place] [address] 09903 WBC (Bld) [#/Vol] 17.70 10*3/uL High 3.99-11.19 [facility] Comment on above: Performed By: #### Y CHGRA #### [facility] (DEFAULT) [address] [place] [address] 13689 Erythrocyte distribution width (RBC) [Ratio] 12.7 % 10.8 - 14.9 % [facility] Hematocrit (Bld) [Volume fraction] 37.0 % 34.9 - 44.3 % [facility] Hemoglobin (Bld) [Mass/Vol] 12.0 g/dL 11.4 - 15.2 g/dL [facility] Interpretation and review of laboratory results Abnormal [facility] MCH (RBC) [Entitic mass] 26.3 pg 25.9 - 33.[address] [facility] MCHC (RBC) [Mass/Vol] 32.4 g/dL 31.4 - 35.9 g/dL [facility] MCV (RBC) [Entitic vol] 81.0 fL 79.6 - 97.[address] [facility] Platelet mean volume (Bld) [Entitic vol] 9.5 fL 8.5 - 12.[address] [facility] Platelets (Bld) [#/Vol] 350 10*3/uL 150 - 393 K/uL [facility] RBC (Bld) [#/Vol] 4.57 10*6/uL [facility] WBC (Bld) [#/Vol] 17.70 10*3/uL High 3.99 - 11 .19 K/uL [facility] CHEM 7 (LYTES,BUN,CREA,GLUC) on 05-22-2022 Anion gap [Moles/Vol] 16 mmol/L Normal 7-17 [facility] Comment on above: Performed By: #### C Danielle, IPB, CHM7, MGO, HFP #### [facility] (DEFAULT) [address] [place] [address] Chloride [Moles/Vol] 103 mmol/L Normal 98-108 [facility] Comment on above: Performed By: #### C Danielle, IPB, CHM7, MGO, HFP #### [facility] (DEFAULT) [address] [place] [address] CO2 [Moles/Vol] 21 mmol/L Normal 21-31 [facility] Comment on above: Performed By: #### C A, IPB, CHM7, MGO, HFP #### [facility] (DEFAULT) [address] [place] [address] Creatinine [Mass/Vol] 0.56 mg/dL Normal 0.50-1.20 [facility] Comment on above: Performed By: #### C A, IPB, CHM7, MGO, HFP #### [facility] (DEFAULT) [address] [place] [address] 87994 eGFR, CKD-EPI, Female > Normal >=60 [facility] Comment on above: Result Comment: Repo rted eGFR is based on the CKD-EPI 2020 equation using creatinine, age, and sex. Performed By: #### C A, IPB, CHM7, MGO, HFP #### [facility] (DEFAULT) [address] [place] [address] 40850 Glucose [Mass/Vol] 133 mg/dL High 70-99 [facility] Comment on above: Performed By: #### C A, IPB, CHM7, MGO, HFP #### [facility] (DEFAULT) [address] [place] [address] 35381 Osmolality [Osmolality] 285 mosm/kg Normal 278-305 [facility] Comment on above: Performed By: #### C A, IPB, CHM7, MGO, HFP #### [facility] (DEFAULT) [address] [place] [address] 22334 Potassium [Moles/Vol] 3.9 mmol/L Normal 3.5-5.0 [facility] Comment on above: Performed By: #### C A, IPB, CHM7, MGO, HFP #### [facility] (DEFAULT) [address] [place] [address] 70365 Sodium [Moles/Vol] 136 mmol/L Normal 135-145 [facility] Comment on above: Performed By: #### C A, IPB, CHM7, MGO, HFP #### [facility] (DEFAULT) [address] [place] [address] 23289 Urea nitrogen [Mass/Vol] 6 mg/dL Low 7-25 [facility] Comment on above: Performed By: #### C A, IPB, CHM7, MGO, HFP #### [facility] (DEFAULT) [address] [place] [address] Urea nitrogen/Creatinine [Mass ratio] 11 mg/mg Normal [facility] Comment on above: Performed By: #### C A, IPB, CHM7, MGO, HFP #### [facility] (DEFAULT) [address] [place] [address] Anion gap [Moles/Vol] 16 mmol/L 7 - 17 mmol/L [facility] Chloride [Moles/Vol] 103 mmol/L 98 - 10 8 mmol/L [facility] CO2 [Moles/Vol] 21 mmol/L 21 - 31 mmol/L [facility] Creatinine [Mass/Vol] 0.56 mg/dL 0.50 - 1.20 mg/dL [facility] GFR/1.73 sq M.predicted CKD-EPI (S/P/Bld) [Vol rate/Area] - PINF [facility] Comment on above: Reported eGFR is bas ed on the CKD-EPI 2020 equation using creatinine, age, and sex. Glucose [Mass/Vol] 133 mg/dL High 70 - 99 mg/dL [facility] Osmolality Calc [Osmolality] [address] [facility] Potassium [Moles/Vol] 3.9 mmol/L 3.5 - 5.0 mmol/L [facility] Sodium [Moles/Vol] 136 mmol/L 135 - 145 mmol/L [facility] Urea nitrogen [Mass/Vol] 6 mg/dL Low 7 - 25 mg/dL [facility] Urea nitrogen/Creatinine [Mass ratio] 11 mg/mg [facility] CONTINUOUS CARDIAC MONITORIN G STRIPon 05-22-[address] [facility] CONTINUOUS CARDIAC MONITORIN G STRIPOrdered By: Unassigned Pacs on 05-22-[address] [facility] Work Phone: HEPATIC FUNCTION PANELon Albumin [Mass/Vol] 3.8 g/dL Normal 3.5-5.0 [facility] Comment on above: Performed By: #### C A, IPB, CHM7, MGO, HFP #### [facility] (DEFAULT) [address] [place] [address] 62981 ALP [Catalytic activity/Vol] 54 U/L Normal 32-126 [facility] Comment on above: Performed By: #### C A, IPB, CHM7, MGO, HFP #### [facility] (DEFAULT) [address] [place] [address] 24368 ALT [Catalytic activity/Vol] 17 U/L Normal 9-48 [facility] Comment on above: Performed By: #### C A, IPB, CHM7, MGO, HFP #### [facility] (DEFAULT) [address] [place] [address] 73410 AST [Catalytic activity/Vol] 23 U/L Normal 10-39 [facility] Comment on above: Performed By: #### C A, IPB, CHM7, MGO, HFP #### [facility] (DEFAULT) [address] [place] [address] 54803 Bilirubin [Mass/Vol] 0.5 mg/dL Normal <1.5 [facility] Comment on above: Performed By: #### C A, IPB, CHM7, MGO, HFP #### [facility] (DEFAULT) [address] [place] [address] 39753 Bilirubin.indirect [Mass/Vol] 0.2 mg/dL Normal <0.3 [facility] Comment on above: Performed By: #### C A, IPB, CHM7, MGO, HFP #### [facility] (DEFAULT) [address] [place] [address] 45291 Protein [Mass/Vol] 6.3 g/dL Low 6.4-8.3 [facility] Comment on above: Performed By: #### C A, IPB, CHM7, MGO, HFP #### [facility] (DEFAULT) [address] [place] [address] 03017 Albumin [Mass/Vol] 3.8 g/dL 3.5 - 5.0 g/dL [facility] ALP [Catalytic activity/Vol] 54 U/L 32 - 126 U/L [facility] ALT [Catalytic activity/Vol] 17 U/L 9 - 48 U/L [facility] AST [Catalytic activity/Vol] 23 U/L 10 - 39 U/L [facility] Bilirubin [Mass/Vol] 0.5 mg/dL NINF - 1.5 mg/dL [facility] Bilirubin.direct [Mass/Vol] 0.2 mg/dL NINF - 0.3 mg/dL [facility] Protein [Mass/Vol] 6.3 g/dL Low 6.4 - 8.3 g/dL [facility] MAGNESIUMon 05-22-2022 Magnesium [Mass/Vol] 1.4 mg/dL Low 1.6-2.6 [facility] Comment on above: Performed By: #### C RODRIGO Santos, MELVINM7, MGO, HFP #### [facility] (DEFAULT) [address] [address] Magnesium [Mass/Vol] 1.4 mg/dL Low 1.6 - 2 .6 mg/dL [facility] No Panel Informationon 05-22 ABO/RH(D) TYPE Positive [facility] BLOOD COMPONENT TYPE Red Cells, Leukoreduced [facility] EXPIRATION DATE [facility] Product ABO/RH(D) Positive [facility] Product ABO/RH(D) NUMBER [id number] [facility] PRODUCT CODE [id number] [facility] UNIT STATUS released [facility] Interpretation and review of laboratory results Abnormal [facility] PHOSPHATE, INORGANICon 05-22 Phosphorous 3.3 mg/dL Normal 2.2-4.6 [facility] Comment on above: Performed By: #### C Danielle, RODRIGO, CHM7, MGO, HFP #### [facility] (DEFAULT) [address] [place] [address] 46092 Interpretation and review of laboratory results Normal [facility] Phosphate [Mass/Vol] 3.3 mg/dL 2.2 - 4 .6 mg/dL [facility] POC ARTERIAL BLOOD GASon Base excess Calc (Bld) [Moles/Vol] -2.1000 mmol/L -3.0 - 3.0 mmol/L [facility] Calcium.ionized (Bld) [Mass/Vol] 4.22 mg/dL Low 4.60 - 5.30 mg/dL [facility] CO2 (Bld) [Partial pressure] 33 mm[Hg] [facility] Glucose [Mass/Vol] 127 mg/dL High 70 - 99 mg/dL [facility] HCO3 (Bld) [Moles/Vol] 22 mmol/L 22 - 28 mmol/L [facility] Hematocrit (Bld) [Volume fraction] 34.5 % 34.2 - 45.6 % [facility] Hemoglobin (Bld) [Mass/Vol] 11.3 g/dL Low 11.4 - 15.2 g/dL [facility] Interpretation and review of laboratory results Abnormal [facility] Lactate [Moles/Vol] 1.2 mmol/L 0.5 - 1. 6 mmol/L [facility] Oxygen (Bld) [Partial pressure] 230 mm[Hg] High [facility] Oxygen saturation in Blood 99 % [facility] pH (Bld) 7.42 [pH] 7.35 - 7.[address] [facility] Potassium [Moles/Vol] 3.6 mmol/L 3.5 - 5.0 mmol/L [facility] Sodium [Moles/Vol] 137 mmol/L 135 - 145 mmol/L [facility] Specimen source Nom (Unsp spec) Arterial [facility] Test performed at address of the patient encounter. [facility] Base excess Calc (Bld) [Moles/Vol] 0.0 mmol/L -3.0 - 3.0 mmol/L [facility] Calcium.ionized (Bld) [Mass/Vol] 4.56 mg/dL Low 4.60 - 5.30 mg/dL [facility] CO2 (Bld) [Partial pressure] 38 mm[Hg] [facility] Glucose [Mass/Vol] 138 mg/dL High 70 - 99 mg/dL [facility] HCO3 (Bld) [Moles/Vol] 24 mmol/L 22 - 28 mmol/L [facility] Hematocrit (Bld) [Volume fraction] 34.7 % 34.2 - 45.6 % [facility] Hemoglobin (Bld) [Mass/Vol] 11.3 g/dL Low 11.4 - 15.2 g/dL [facility] Interpretation and review of laboratory results Abnormal [facility] Oxygen (Bld) [Partial pressure] 197 mm[Hg] High [facility] Oxygen saturation in Blood 99 % [facility] pH (Bld) 7.42 [pH] 7.35 - 7.[address] [facility] Potassium [Moles/Vol] 3.4 mmol/L Low 3.5 - 5.0 mmol/L [facility] Sodium [Moles/Vol] 138 mmol/L 135 - 145 mmol/L [facility] Specimen source Nom (Unsp spec) Arterial [facility] Test performed at address of the patient encounter. [facility] PREPARE TO TRANSFUSE OR RED BLOOD CELLSon 05-22-2022 UNIT NUMBER [id number] [facility] UNIT NUMBER [id number] [facility] PROTIME-INRon 05-22-2022 INR Coag (PPP) [Relative time] 1.2 {INR} High 0.9-1.1 [facility] Comment on above: Performed By: #### C A, IPB, CHM7, MGO, HFP #### [facility] (DEFAULT) [address] [place] [address] PT Coag (PPP) [Time] 14.8 s High 11.9-14.2 [facility] Comment on above: Performed By: #### Dayday Santos, SHANEKAB, CHM7, MGO, HFP #### [facility] (DEFAULT) [address] [place] [address] 60828 INR Coag (Bld) [Relative time] 1.2 {INR} High 0.9 - 1.[address] [facility] Interpretation and review of laboratory results Abnormal [facility] PT Coag (PPP) [Time] 14.8 s High [facility] SURG PATH REQUESTon 05-22-20 Case Report Normal [facility] Comment on above: Result Comment: Surg ica Pathology Report Case: [id number] Authorizing Provider: Suman Baker MD, PhD Collected: 05/22/2022 08:31 AM Ordering Location: [facility] PERIOP Received: 05/25/2022 08:10 AM Pathologist: WALI Landry Specimens: A) - SURG PATH, CALCIFORM LIGAMENT B) - SURG PATH, Omentum C) - SURG PATH, Peritoneal implant #1 D) - SURG PATH, Peritoneal implant #2 E) - SURG PATH, TERMINAL ILEUM AND COLON F) - SURG PATH, PERITONEAL IMPLANT #3 G) - SURG PATH, PERITONEAL IMPLANT #4 Performed By: #### C RODRIGO Santos, HUBERT, MGO #### 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 Normal [facility] Comment on above: Performed By: #### C RODRIGO Santos, MELVINM7, MGO #### [facility] (DEFAULT) [address] [place] [address] Gross Description Normal [facility] Comment on above: Result Comment: The specimens [...] and granular lesion Lab Use Only: JobID [id number] Lab Use Only: JobID [id number] (lmp) Grosser for this case was: Pedro Jacobsen For Immediate Release to Patient's MyChart? Yes Performed By: #### C RODRIGO Santos, HUBERT, MGO #### [facility] (DEFAULT) [address] [place] [address] Microscopic Description A microscopic examination was performed. Normal [facility] Comment on above: Performed By: #### C RODRIGO Santos, CHARLIE7, MGO #### [facility] (DEFAULT) [address] [place] [address] Pathologic Diagnosis Normal [facility] Comment on above: Result Comment: A. [...] developed by and are performed at the [facility], [address] [place] [address], [address], [place] [address]. All tests reported here, except those addressing HER2 overexpression as a predictive marker, have not been cleared by or approved by the [place] Food and Drug Administration (FDA). The laboratory is regulated under CLIA as qualified to perform high-complexity testing. The tests are used for clinical purposes. They should not be regarded as investigational or for research. Performed By: #### C RODRIGO Santos CHM7, MGO #### [facility] (DEFAULT) [address] [place] [address] TYPE AND SCREENon 05-22-2022 ABO/RH(D) TYPE Positive Normal [facility] Comment on above: Performed By: #### C RODRIGO Santos, CHARLIE7, MGO #### [facility] (DEFAULT) [address] [place] [address] ABO/RH(D) TYPE Positive [facility] XR ABDOMEN 1 VIEWon 05-22-20 XR ABDOMEN [...] the nasogastric tube in the stomach. Normal [facility] XR Abdomen Single viewon IMPRESSION: Appropriate [...] of the nasogastric tube in the stomach. [facility] Radiology Study observation (narrative) [facility] XR Abdomen Single viewOrdere d By: Debora Burciaga on 05-22-2022 [facility] Work Phone: PREG HCG QUALon 04-08-2022 , QUAL Negative Normal NEGATIVE [facility] Comment on above: Performed By: #### P REG #### [facility] [address] [address] [address] Esthela Stevens Covid-19 PCR (CVDTB)on 03-19 SARS-CoV-2 (COVID-19) RNA JORGE LUIS+probe Ql (Unsp spec) Not detected Normal NOT DETECTED [facility] Comment on above: Result Comment: This test is not yet approved or cleared by the [place] FDA. When there are no FDA-approved or cleared tests available, and other criteria are met, FDA can make tests available under an emergency access mechanism called an Emergency Use Authorization (EUA). The EUA for this test is supported by the [place] of Health and Human Service's (HHS's) declaration [...] By: #### L IVER, LDH, BMP #### [facility] [address] [place], [place] [address] Abdomen and Pelvis [...] error, please notify the sender immediately at [phone] and permanently delete the original report and [...] error, please notify the sender immediately at [phone] and permanently delete the original report and destroy any copies or printouts. [facility] CT Abdomen and Pelvis W cont rast IVOrdered By: [facility] Jason IMPRESSION: 1. [...] 1. No evidence for intrathoracic metastatic disease [facility] CT Chest W contrast IVOrdere d By: Yovany Bills on 03-31-[address] [facility] Work Phone: No Panel Informationon 03-31 Radiology Study observation (narrative) [facility] CBC AND ELECTRONIC DIFFon Basophils (Bld) [#/Vol] 0.05 10*3/uL 0.00 - 0.15 K/uL [facility] Basophils/100 WBC (Bld) 0.6 % [facility] Differential cell count method Nom (Bld) Electronic Differential [facility] Eosinophils (Bld) [#/Vol] 0.07 10*3/uL 0.00 - 0.42 K/uL [facility] Eosinophils/100 WBC (Bld) 0.8 % [facility] Erythrocyte distribution width (RBC) [Ratio] 13.4 % 10.8 - 14.9 % [facility] Hematocrit (Bld) [Volume fraction] 37.9 % 34.9 - 44.3 % [facility] Hemoglobin (Bld) [Mass/Vol] 11.9 g/dL 11.4 - 15.2 g/dL [facility] Immature granulocytes (Bld) [#/Vol] 0.04 10*3/uL <=0.[address] [facility] Immature granulocytes/100 WBC (Bld) 0.5 % [facility] Interpretation and review of laboratory results Abnormal [facility] Lymphocytes (Bld) [#/Vol] 2.33 10*3/uL 1.16 - 3.51 K/uL [facility] Lymphocytes/100 WBC (Bld) 27.4 % [facility] MCH (RBC) [Entitic mass] 26.3 pg 25.9 - 33.[address] [facility] MCHC (RBC) [Mass/Vol] 31.4 g/dL 31.4 - 35.9 g/dL [facility] MCV (RBC) [Entitic vol] 83.8 fL 79.6 - 97.[address] [facility] Monocytes (Bld) [#/Vol] 0.46 10*3/uL 0.22 - 0.87 K/uL [facility] Monocytes/100 WBC (Bld) 5.4 % [facility] Neutrophils (Bld) [#/Vol] 5.55 10*3/uL 1.64 - 7.28 K/uL [facility] Nucleated RBC/100 WBC (Bld) [Ratio] 0.0 % <=0.2 /[address] [facility] Platelet mean volume (Bld) [Entitic vol] 10.0 fL 8.5 - 12.[address] [facility] Platelets (Bld) [#/Vol] 402 10*3/uL High 150 - 393 K/uL [facility] RBC (Bld) [#/Vol] 4.52 10*6/uL [facility] Segmented neutrophils/100 WBC (Bld) 65.3 % [facility] WBC (Bld) [#/Vol] 8.50 10*3/uL 3.99 - 11. 19 K/uL [facility] COMPREHENSIVE METABOLIC PANE Shamir 03-19-2022 Albumin [Mass/Vol] 4.5 g/dL 3.5 - 5.0 g/dL [facility] ALP [Catalytic activity/Vol] 67 U/L 32 - 126 U/L [facility] ALT [Catalytic activity/Vol] 15 U/L 9 - 48 U/L [facility] Anion gap [Moles/Vol] 16 mmol/L 7 - 17 mmol/L [facility] AST [Catalytic activity/Vol] 14 U/L 10 - 39 U/L [facility] Bilirubin [Mass/Vol] 0.4 mg/dL <1.[address] [facility] Calcium [Mass/Vol] 9.8 mg/dL 8.6 - 10. 5 mg/dL [facility] Chloride [Moles/Vol] 100 mmol/L 98 - 10 8 mmol/L [facility] CO2 [Moles/Vol] 27 mmol/L 21 - 31 mmol/L [facility] Creatinine [Mass/Vol] 0.66 mg/dL 0.50 - 1.20 mg/dL [facility] GFR/1.73 sq M.predicted CKD-EPI (S/P/Bld) [Vol rate/Area] >90 >=60 mL/min/1.73m2 [facility] Comment on above: Reported eGFR is bas ed on the CKD-EPI 2020 equation using creatinine, age, and sex. Glucose [Mass/Vol] 73 mg/dL 70 - 99 mg/dL [facility] Osmolality Calc [Osmolality] [address] [facility] Potassium [Moles/Vol] 3.6 mmol/L 3.5 - 5.0 mmol/L [facility] Protein [Mass/Vol] 7.4 g/dL 6.4 - 8.3 g/dL [facility] Sodium [Moles/Vol] 139 mmol/L 135 - 145 mmol/L [facility] Urea nitrogen [Mass/Vol] 10 mg/dL 7 - 25 mg/dL [facility] Urea nitrogen/Creatinine [Mass ratio] 15 mg/mg [facility] PT,INR,PTTon 03-19-2022 aPTT Coag (PPP) [Time] 36.[address] [facility] INR Coag (Bld) [Relative time] 1.2 {INR} High [facility] Interpretation and review of laboratory results Abnormal [facility] PT Coag (PPP) [Time] 14.6 s [facility] CBC AUTO DIFFon 02-03-2022 BASO # 0.1 103/ul Normal 0.0-0.1 [facility] Comment on above: Performed By: #### L IVER, LDH, BMP #### [facility] [address] [place] [address] Dr. Esthela Stevens Basophils/100 WBC (Bld) 0.5 % Normal 0.2-2.0 [facility] Comment on above: Performed By: #### L IVER, LDH, BMP #### [facility] [address] [place] [address] Dr. Esthela Stevens EO # 0.1 103/ul Normal 0.0-0.7 [facility] Comment on above: Performed By: #### L IVER, LDH, BMP #### [facility] [address] [place] [address] Dr. Esthela Stevens Eosinophils/100 WBC (Bld) 1.2 % Normal 0.9-7.0 [facility] Comment on above: Performed By: #### L IVER, LDH, BMP #### [facility] [address] [place] [address] Dr. Esthela Stevens Erythrocyte distribution width (RBC) [Ratio] 13.2 % Normal 11.0-15.0 [facility] Comment on above: Performed By: #### L IVER, LDH, BMP #### [facility] [address] [place] [address] Dr. Esthela Stevens Hematocrit (Bld) [Volume fraction] 38.4 % Normal 36.0-48.0 [facility] Comment on above: Performed By: #### L IVER, LDH, BMP #### [facility] [address] [place] [address] Dr. Esthela Stevens Hemoglobin (Bld) [Mass/Vol] 12.2 g/dL Normal 12.0-16.0 [facility] Comment on above: Performed By: #### L IVER, LDH, BMP #### [facility] [address] [place] [address] Dr. Esthela Stevens IG # 0.06 10e3/ul Critically high 0.00-0.03 [facility] Comment on above: Performed By: #### L IVER, LDH, BMP #### [facility] [address] [place] [address] Dr. Esthela Stevens IG % 0.6 % Critically high 0.0-0.5 [facility] Comment on above: Performed By: #### L IVER, LDH, BMP #### [facility] [address] [place] [address] Dr. Esthela Stevens LYMPH # 2.1 103/ul Normal 1.2-3.8 [facility] Comment on above: Performed By: #### L IVER, LDH, BMP #### [facility] [address] [place] [address] Dr. Esthela Stevens Lymphocytes/100 WBC (Bld) 21.7 % Normal 20.5-60.0 [facility] Comment on above: Performed By: #### L IVER, LDH, BMP #### [facility] [address] [place] [address] Dr. Esthela Stevens MANUAL DIFF REQ NO Normal [facility] Comment on above: Performed By: #### L IVER, LDH, BMP #### [facility] [address] [place] [address] Dr. Esthela Stevens MCH (RBC) [Entitic mass] 26.5 pg Critically low 26.7-34.0 [facility] Comment on above: Performed By: #### L IVER, LDH, BMP #### [facility] [address] [place] [address] Dr. Esthela Stevens MCHC (RBC) [Mass/Vol] 31.8 g/dL Normal 29.9-35.2 [facility] Comment on above: Performed By: #### L IVER, LDH, BMP #### [facility] [address] [place] [address] Dr. Esthela Stevens MCV (RBC) [Entitic vol] 83.5 fL Normal 81.0-99.0 [facility] Comment on above: Performed By: #### L IVER, LDH, BMP #### [facility] [address] [place] [address] Dr. Esthela Stevens MONO # 0.7 103/ul Normal 0.3-0.8 [facility] Comment on above: Performed By: #### L IVER, LDH, BMP #### [facility] [address] [place] [address] Dr. Esthela Stevens Monocytes/100 WBC (Bld) 7.5 % Normal 1.7-12.0 [facility] Comment on above: Performed By: #### L IVER, LDH, BMP #### [facility] [address] [place] [address] Dr. Esthela Stevens NEUT # 6.8 103/ul Critically high 1.4-6.5 [facility] Comment on above: Performed By: #### L IVER, LDH, BMP #### [facility] [address] [place] [address] Dr. Esthela Stevens Neutrophils/100 WBC (Bld) 68.5 % Normal 43.0-75.0 [facility] Comment on above: Performed By: #### L IVER, LDH, BMP #### [facility] [address] [place] [address] Dr. Esthela Stevens Platelet mean volume (Bld) [Entitic vol] 9.4 fL Critically low 9.5-13.5 [facility] Comment on above: Performed By: #### L IVER, LDH, BMP #### [facility] [address] [place] [address] Dr. Esthela Stevens PLT 403 103/ul Normal 150-450 [facility] Comment on above: Performed By: #### L IVER, LDH, BMP #### [facility] [address] [place] [address] Dr. Esthela Stevens RBC 4.60 106/ul Normal 4.20-5.40 [facility] Comment on above: Performed By: #### L IVER, LDH, BMP #### [facility] [address] [place] [address] Dr. Esthela Stevens WBC 9.9 103/ul Normal 4.0-11.0 [facility] Comment on above: Performed By: #### L IVER, LDH, BMP #### [facility] [address] [address] [address] ABD/PELV W CONon [...] CAROLYN WALSH Date: 2022-02-03 12:14 Normal [facility]16 SARS-CoV-2 (COVID-19) RNA JORGE LUIS+probe Ql (Unsp spec) Not detected Normal NOT DETECTED [facility] Comment on above: Result Comment: When [...] for this test is supported by the [employer] of [employer] and Human Service's declaration [...] By: #### L IVER, LDH, BMP #### [facility] [address] [place] [address] Dr. Esthela Stevens ER URINE PROFILEon 2 Bilirubin Ql (U) Negative Normal NEGATIVE [facility] Comment on above: Performed By: #### E RUR UMICRO #### [facility] [address] [place] [address] Dr. Esthela Stevens Clarity (U) CLEAR Normal CLEAR [facility] Comment on above: Performed By: #### E RUR, UMICRO #### [facility] [address] [place] [address] Dr. Esthela Stevens Color (U) LT. YELLOW Normal YELLOW [facility] Comment on above: Performed By: #### E RUR, UMICRO #### [facility] [address] [place] [address] Dr. Esthela ARGUELLES A micrscopic examination will be performed if indicated. Normal [facility] Comment on above: Performed By: #### E RUR, UMICRO #### [facility] [address] [place] [address] Dr. Esthela Stevens Glucose Ql (U) Negative Normal NEGATIVE [facility] Comment on above: Performed By: #### E RUR, UMICRO #### [facility] [address] [place] [address] Dr. Esthela Stevens Hemoglobin Ql (U) Negative Normal NEGATIVE [facility] Comment on above: Performed By: #### E RUR, UMICRO #### [facility] [address] [place] [address] Dr. Esthela Stevens Ketones Ql (U) Negative Normal NEGATIVE [facility] Comment on above: Performed By: #### ERUM WALLACERO #### [facility] [address] [place] [address] Dr. Esthela Stevens LEUKOCYTES SMALL Abnormal NEGATIVE [facility] Comment on above: Performed By: #### ERUM WALLACERO #### [facility] [address] [place] [address] Dr. Esthela Stevens Nitrite Ql (U) Negative Normal NEGATIVE [facility] Comment on above: Performed By: #### ERUM WALLACERO #### [facility] [address] [place] [address] Dr. Esthela Stevens pH (U) 7.0 [pH] Normal 5-9 [facility] Comment on above: Performed By: #### ERUM WALLACERO #### [facility] [address] [place] [address] Dr. Esthela Stevens SPEC GRAVITY 1.015 Normal 1.005-<=1.025 [facility] Comment on above: Performed By: #### ERUM WALLACERO #### [facility] [address] [place] [address] Dr. Esthela Stevens UA PROTEIN Negative Normal NEGATIVE/ TRACE [facility] Comment on above: Performed By: #### ERUM WALLACERO #### [facility] [address] [place] [address] Dr. Esthela Stevens UR MICRO IND INDICATED Normal [facility] Comment on above: Performed By: #### ERUM WALLACERO #### [facility] [address] [place] [address] Dr. Esthela Stevens Urobilinogen Qn (U) 0.2 {Emeka'U}/dL Normal 0.2 - 1. 0 [facility] Comment on above: Performed By: #### ERUM WALLACERO #### [facility] [address] [place] [address] Dr. Esthela Stevens LACTATE/LACTIC ACIDon 2021 Lactate [Moles/Vol] 1.3 mmol/L Normal 0.4-1.9 [facility] Comment on above: Performed By: #### P REG #### [facility] [address] [address] [address] Esthela Stevens LIPASEon 02-03-2022 Lipase [Catalytic activity/Vol] 58.0 U/L Critically low 73.0-393.0 [facility] Comment on above: Performed By: #### L IPA, CMP #### [facility] [address] [address] [address] Esthela Stevens PREG HCG QUALon 02-03-2022 , QUAL Negative Normal NEGATIVE [facility] Comment on above: Performed By: #### L IVER, LDH, BMP #### [facility] [address] [address] [address] Esthela Stevens PROF 14(COMP METB)on 022 Albumin [Mass/Vol] 3.8 g/dL Normal 3.4-5.0 [facility] Comment on above: Performed By: #### L IPA, CMP #### [facility] [address] [address] [address] Esthela Stevens Albumin/Globulin [Mass ratio] 1.0 {ratio} Normal [facility] Comment on above: Performed By: #### L IPA, CMP #### [facility] [address] [address] [address] Esthela Stevens ALP [Catalytic activity/Vol] 75 U/L Normal 46-116 [facility] Comment on above: Performed By: #### L IPA, CMP #### [facility] [address] [address] [address] Esthela Stevens ALT [Catalytic activity/Vol] 37 U/L Normal 14-59 [facility] Comment on above: Performed By: #### L IPA, CMP #### [facility] [address] [address] [address] Esthela Stevens Anion gap [Moles/Vol] 14.0 mmol/L Normal [facility] Comment on above: Performed By: #### L IPA, CMP #### [facility] [address] [address] [address] Esthela Stevens AST [Catalytic activity/Vol] 14 U/L Critically low 15-37 [facility] Comment on above: Performed By: #### L IPA, CMP #### [facility] [address] [address] [address] Esthela Stevens Bilirubin [Mass/Vol] 0.2 mg/dL Normal 0.2-1.0 [facility] Comment on above: Performed By: #### L IPA, CMP #### [facility] [address] [place] [address] Dr. Esthela Stevens Calcium [Mass/Vol] 8.9 mg/dL Normal 8.5-10.1 [facility] Comment on above: Performed By: #### L IPA, CMP #### [facility] [address] [place] [address] Dr. Esthela Stevens Chloride [Moles/Vol] 103 mmol/L Normal 98-107 [facility] Comment on above: Performed By: #### L IPA, CMP #### [facility] [address] [place] [address] Dr. Esthela Stevens CO2 [Moles/Vol] 25.2 mmol/L Normal 21.0-32.0 [facility] Comment on above: Performed By: #### L IPA, CMP #### [facility] [address] [place] [address] Dr. Esthela Stevens Creatinine [Mass/Vol] 0.72 mg/dL Normal 0.55-1.02 [facility] Comment on above: Performed By: #### L IPA, CMP #### [facility] [address] [place] [address] Dr. Esthela Stevens EGFR-AF SAUDI ARABIAN >60 Normal >=60 [facility] Comment on above: Performed By: #### L IPA, CMP #### [facility] [address] [place] [address] Dr. Esthela Stevens EGFR-NON AF SAUDI ARABIAN >60 Normal >=60 [facility] Comment on above: Performed By: #### L IPA, CMP #### [facility] [address] [address] [address] Esthela Stevens Globulin (S) [Mass/Vol] 3.7 g/dL Normal [facility] Comment on above: Performed By: #### L IPA, CMP #### [facility] [address] [address] [address] Esthela Stevens Glucose [Mass/Vol] 101 mg/dL Normal 74-106 [facility] Comment on above: Performed By: #### L IPA, CMP #### [facility] [address] [address] [address] Esthela Stevens Potassium [Moles/Vol] 4.2 mmol/L Normal 3.5-5.1 [facility] Comment on above: Performed By: #### L IPA, CMP #### [facility] [address] [address] [address] Esthela Stevens Protein [Mass/Vol] 7.5 g/dL Normal 6.4-8.2 [facility] Comment on above: Performed By: #### L IPA, CMP #### [facility] [address] [address] [address] Esthela Stevens Sodium [Moles/Vol] 138 mmol/L Normal 136-145 [facility] Comment on above: Performed By: #### L IPA, CMP #### [facility] [address] [address] [address] Esthela Stevens Urea nitrogen [Mass/Vol] 11.0 mg/dL Normal 7.0-18.0 [facility] Comment on above: Performed By: #### L IPA, CMP #### [facility] [address] [address] [address] Esthela Stevens Urea nitrogen/Creatinine [Mass ratio] 15.3 mg/mg Normal [facility] Comment on above: Performed By: #### L IPA, CMP #### [facility] [address] [address] [address] Esthela Stevens URINE MICROSCOPIC ONLYon BACTERIA NONE SEEN Normal NONE SEEN [facility] Comment on above: Performed By: #### E LAURA, UMICRO #### [facility] [address] [place] [address] Dr. Esthela Stevens Bacteria identified Cx Nom (U) NOT INDICATED Normal [facility] Comment on above: Performed By: #### E YELENAR, UMICRO #### [facility] [address] [place] [address] Dr. Esthela Stevens CAST NONE SEEN Normal NONE SEEN [facility] Comment on above: Performed By: #### E LAURA, UMICRO #### [facility] [address] [place] [address] Dr. Esthela Stevens Crystals LM Nom (Urine sed) NONE SEEN Normal NONE SEEN [facility] Comment on above: Performed By: #### E LAURA, UMICRO #### [facility] [address] [place] [address] Dr. Esthela Stevens Epithelial cells LM Ql (Urine sed) FEW Abnormal NONE SEEN /RARE [facility] Comment on above: Performed By: #### Toñito SANCHEZ, UMICRO #### [facility] [address] [place] [address] Dr. Esthela Stevens MUCOUS NONE SEEN Normal NONE SEEN [facility] Comment on above: Performed By: #### Toñito SANCHEZ UMICRO #### [facility] [address] [place] [address] Dr. Esthela Stevens RBC 0-2 Normal 0-2 [facility] Comment on above: Performed By: #### Toñito SANCHEZ UMICRO #### [facility] [address] [place] [address] Dr. Esthela Stevens WBC 2-5 Abnormal NONE SEEN [facility] Comment on above: Performed By: #### Toñito SANCHEZ UMICRO #### [facility] [address] [place] [address] Dr. Esthela Stevens Test, Urineon Beta HCG ( test) Ql (U) Negative [employer] Other Urinalysis - AUTOMATEDon Appearance (U) clear [employer] Other Bilirubin Ql (U) Negative [employer] Other Color (U) yellow [employer] Other Glucose Ql (U) Negative [employer] Other Hemoglobin Ql (U) Negative [employer] Other Ketones Ql (U) 15 [employer] Other Leukocyte esterase Test strip Ql (U) Negative [employer] Other Nitrite Ql (U) Negative [employer] Other pH (U) 7.0 [pH] [employer] Other Protein Ql (U) Negative [employer] Other Specific gravity (U) [Rel density] 1.020 [employer] Other Urobilinogen (U) [Mass/Vol] 0.2 mg/dL [employer] Other Urinalysis - AUTOMATED [employer] Other Coding Summary.on 02-18-2021 Coding Summary. [id number] Gh0bWw+PGhlYWQ+PE1FV OPtP40zbJQtkR0QN2aTH S7CXEUQPYRVHA6OVW1zn AV5OBjpN1XpmjSv NenhlLHrZS09QLt0MJJ1 uFqxOMqptT4jqMCpM1p6 CnQoCS89zN01QEszSCCg RwP4QcRufhyqfORa P0xuXpVlcADhDcd+PHRh YmxlIHdpZHRoPScxMDAl UfZlgDjvHA2xSy2oJLYc LWNvbGxhcHNlOiBj q8ngHZVoGSmgSK0xdKmz M7AsgQJ0ODMws1k1Dl00 dHI+KCPgIFC3gLiqQYsb b342ZmHkf3dvACX5 sFKuLBlvAIC6H21gf0A8 LHLfYPOdPZE1xBL3bR6v yUzqdfiuY4OxdOGyYcM8 XDZ7xLNolP3loGvf rdbawE3tEen+X17PUG5T PFJKRJ0SVdl6R9VcIsav dHI+XB42FKBoQM53qTSt pHOvr9pusPt2LkXz FYMfGOI3iShhEWsbl9Nd UGOhM78lgOEuo9D0UJOh eRzriIJnIpAcjFO8nV8q FOyghlphb9nifxcs Xnvpr0deeb37dI92W62q BOmzTVFyZZU4EBMkNEPf yIplxh0rtV7tNk7+IDxj e9jnq0gqsQk2RfLq LEDmsvDmuJkxUNP2i0Wi Vt19B7LihOhuu2VoVhp7 of89jGFan5X2wKC2BDpc TUJagH7aTQrwJhQ2 EJMhCfPvrJ95uWJvEUqs Io1xaKtclFiuVI7wHGJc qtvqOUIcuA3jJNAtbRNh fIevXO7oLYIdylgl b891ViIlIIA9PMJlkIAw O6FesP0aWtYrJLCxINSv R2PifTUtEMqoX378ZEmw UeZ1CPEqirIpY3Ak SBOmsLpxQgB0p5C0Fj3E z9WqrbgsLRB0UFurEXR8 BnMzVdVkJtM5T5KcSbu6 VWJqbSqsZQ9yE3Hg JJXzahnglggimNH6TFQi XOZudY37kWIbYCbfMf6a n0F0p324PBQbWJZxcN98 Gs4msZwsTRMbfMUB fY6zefjfe8cysdtnFtFm KDXmZKu3ZRy1GNHyrAat PuLoOUM6QrY1UXP3jELt rG9xdCswuacdzE5d Oyc+X90fuI5cRDF5UIG5 jatwKXFhvvCqYI55OM19 V6AdCfngeLXtxXR+PGRp orPeyNvhFO3mWtOb f4edy1CgINhqA4NoBOWg UGmxOcs7GULaRST9iJR1 mZ7kJDPnOWlgc7M7vYT0 N3FktpXasc9ya0ai SQWxCBexC74wxUOwi1F1 RGKceIO6ESPoySjiCaPx qJ99Swd+LOLsxWhvq7Ww Wiqnt6mkm7agjLc7 IjMwJSIgdmFsaWduPSJ0 b6DjOp63L45mSNtaOEHg UQBqZQGoDYOqbQqjds5v oK7dGk3+PGNvbCB3 cFR5kS8nUKQsYxO2EXei N678ViOjkJGzSiupk7gd e0mdyTa9AeNjCZSegmOq rCjlVIK1q5KqYn55 O99hWWdkGGQsISQfMXEp VHHeyUdwzd5tgM5zVf9+ PZ9bn6gedm72uO11eWA+ EBJaONN6kBtoAKsg PJWwnY5qPHjzHnC9TNXb DrEfaH75hVBbELdfWv6o dZcnuJgpDO0vWFOksajl h874JuCna5bnODZc rIOxBRpbITI8X14ds0D8 DGZcSLUyFIL5tLM3mZ2j bGlnbjogbGVmdDsgdmVy rQmhYHwnIZevD850 IHRvcDsnPlBhdGllbnQg IuOlMGz7Y8NsGmu3FCGl kKxaJB3wcFIoSRatRh6s qYijkFndKQ0tNFTu ryetg607MqDkn3ctWTXf pOCsLJyuCID3X00rz1L9 EPOmJYKiWUM0xLW5nJ8b bGlnbjogbGVmdDsg qcQuvBnsBDdfZEtzD528 IHRvcDsnPkJpcnRoIERh gSR0DZ84WF21gJDwy1M4 sJI3X5LgTJQlnmij itekgOM8UDLxDCOsaO65 Wi6zmHwcFk5jKXFpPNS6 UABgzKVpN6PnsI4wYaJr FGKwBBJaD7SbnNZa HWssA618IQvzShB4GOQl hgBqR9IsTVFbxMlqVhT2 u3A0Fp1JO2I4CI63RX50 bTJqc0S1pEM9Z2Kl TDUrixakosnucJF0MJBu QKBmdU04Hh8auWtdBr2t ZOPtRVJ8TIAbyBDoC7Mg kR3cIuYcWQRtJJDr F6JsaKHuJSpxU865RQrv RuK9DMGeilSdW6KdOTMk rOyyHaD2c7U7Hx4HQCp0 IP99AJ94gFDjp2J7 vEJ4U0OxQSZkoobtskmn uSM6ICBqOKOvmL00Yl5j tLsvOw4yMVRmARY6DPAz jKXwT3RtzW5uLwWf TGBxJQShK1ZdwWRmLCam K866CLpoTjM7BPTbdxBo D4IwSVYvvGmoSaF9b7P9 Wo3TUKKzLP94PNU4 uJE3QP77OM23K4VwIddh dGFibGU+PHRhYmxlIHdp ZHRoPScxMDAlJyBzdHls FT3xRs0fLZMbPBDa sLiqsFEwLfXfs3bvOVDw TFrwPV8twXdrB9GtvCW4 EKKcf5o3Lv84K41yL3Of dXA+JHDssFP9hYH1 aO5pPnNnHpC2JBzxM798 NhXqhNFqOddhr5nbq8yi pVx9AzD8TWXqfnZwoYow XJN8t0PqSm20V50r IHdpZHRoPSIxNSUiIHZh gZfega8xmQ8rFs2+PGNv oYL9vMU1fC1hRnGaVmW4 IPvkZ353LmBpzXLj Lbglx7bwq7zjtIt8HpIb SMTibbZraCyoFZD9o2Kx Il17F9JetNyhi8ShQmc7 et02dTLvf3H9jQD0 K7MuLRWbwmglfJIwrIkn CR4sPOTinauuQKBogD9b GQWmT6g8UoIaOsB0UXyv Z4DxnfE9PHJhvNCk EEybCUB6I62qx3P6DTOq CHZuVCX1gCU4iO0wbAzj bjogbGVmdDsgdmVydGlj WOhpXKdcD279WXYa aGxhPWWitL1gTBZmrCHl cMboSM0wOEVxsjjsIzgO ADkJDsgpS3NANJMRARk9 Y4WdWvc1CIJyeNtw QY4ixNSjLUcaUx4veIke zAyzLI1pGQZbkidvFDRw iG0uVZNczFIkuAfyWX3g FMMyquzne420VsDw JBI0PZPysIIsD5VijJ7k DvNeCAPhOOOoE2GnaCFr AFtgR259ELlfBxI6UOLw cfQyK0GlMTJztIkg QfO4l6R8Zy0dVD4fCJ9g TOh1QR00EZ44qONlc8V6 aGR9K4RdJSEubyzjliyj rYA5NKRuIVWqmN58 tVDmLOnvMw9zv8C9y830 RLFxMKFmmH63Sr3fkWkg YFYvhHZLeQ6vpuxam3km cjogIzAwMDAwMDt0 YMg4IWMtrDwfPkJdSUW0 BvR9BRK8uZYmqB3qrWxg jwyvtF7mOgc+MjMgWWVh ioA0G6GfCdg2RUXu dNaqLH3whIYfTFzhKc5l hGmtaEtySZ9yRBObwnaj GJJzcW3fLAJvlWKgbPhf LW8gQVDwvagjz683 RcVdKVS4FBPbiTOgD4Er qT2jLtWmLTWiCKLrF3Mn hBTvQSodT975MDleGvG4 FHMhzrAvB0WhZFZa pErfCwB1b0R0Pn5ATS8z rHJ9K7IsJfi0ZDEqcGow BD4rpYBeKSbuBf2jvRes lAevEC4gMRYteacl CKOisY7gGATzlEDnhMjf RS4vOZApqvffr765MhOp WPJ7BDZnaXFuW9PltR4q DiZrPNQfMGQjB0Zu sEKxGVizU040AOybIyK2 TNNlncEkS6DaIUYnsYgk FmM9d3C3Kr8OgUSsW2Uo B0v2S7LtQxqztTG+ NA75GYBmGC16mZCzrCVv d6cabQo7EwNsTJSoEYR8 bEyiTHaoe3PgTQQuW84a sYNsz8C7TMFouIoq yNXxNpCvzGA8vA0lRPoo atkga3trfinkJwhie3ji rw40xE61D12lCOfnMTYe PSIzMCUiIHZhbGln re0szG6dEc6+PGNvbCB3 uVF0xF8tLcMzCsJ0HDhy B580SzRslOWcEyjnd4vh g3tayLo8QwNcUFFm hqPlpUijVJC9l7HmZh80 B66hQJkeJBWuBVUmDURw XQZwiJbbdp0nxU3xNr3+ KD5zf2lhfc66qF47 dHI+COCjQVB8hHaeGKic IMFrnH9hNXrdEzL3QSBa GnSjpN61eXWmYOngMw0o lHhsoMuyAO1rGIMb jqqzo393LzOln1cjDEQp gOSpFKudCBQ4O38vm3B8 HSGuZHZoYTX6iVI8oB9g bGlnbjogbGVmdDsg kfDlbNhbONpqHBrtV969 ELZtyAjtGwYcrVYxT0sg hyZRIM3bBlxffJB+PHRk IEN8vYfgALcdOEOq iZ2cIAUiR2h6XqWyUiV6 UMgjE0DeiqK2VJSadWQs CJEanCDKeZ0abljiz5ld cjogIzAwMDAwMDt0 YPn8APFqmRxnVoLcIJK0 XyY7XFJ2tGHiuD2cdGja tjkcaF6kKbm+RklOOjwv dGQ+RMOmLYW1gUax RKbnUCDriW2kTVNtH2m9 NyJkIbP3HXnsV1ZvauM5 BXZqcBEeGWGqbYUFfI0e uvzdk5cmzyezIuUl JDDnNXf2OYx1DQDwgIog JuCzORR7BtI0ZBW4xWAo yS8lwHlprjnyxN9eCxz+ TVJOOjwvdGQ+PHRk CEA7oKzlNCxpQXHmxZ4l MMHjJ6e2BnRoUhM1OCgd B6NjhmO9BNOqhUHhKYTk jOJItD9hmiamq0ix wlksBkKtEVBmBUp8ERe4 KGBrwMsfBmGxSAR6PnW7 HKP3zAPpbG2ukLmdcqtj xL7gPnb+GWP0QVC2 EU20GK33C0SkPpljkYVk bGU+PHRhYmxlIHdpZHRo RSzrXLXmJtOqkJthON3k Lo9iEEXiBUQkwFrh cHNl (more content not included)... Normal [facility] Consent for Treatmenton Consent for Treatment [id number] #1.00CD:127 [facility] Discharge Instructionson Discharge Instructions [id number]#1.00CD:127 [facility] ED Clinical Summaryon 2020 ED Clinical Summary [address] [address] ED Clinical Summary Person Information Name: ZAINAB MCCLURE [place] Age: 25 Years : 1995 Sex: Female Language: Ethiopian PCP: ERIN SAMS CNP Marital Status: Single [...] 02/17/2021 11:52:53 02/17/2021 11:52:53 02/17/2021 11:52:53 ADDRESS: [facility] [place] [id number] PHYS DOC NOTES: MEDICAL INFORMATION: Prescriptions Given: New Medications Printed Prescriptions lorazepam (Ativan 1 mg Tab) 1 Tablets By Mouth every 8 hours for 2 Days. Take one by mouth every eight hours as needed. Refills: 0. PATIENT EDUCATION INFORMATION: Instructions: Suicidal Feelings: How to Help Yourself; Managing Anxiety, Adult Follow up: With: Address: When: Merged with [facility] In 1 day 02/18/2021 With: Address: When: ERIN SAMS [address] [place] [address] [phone] [employer]) In 3 days DIAGNOSIS: Anxiety; Suicidal ideation Normal [facility] ED Note-Physicianon 02-18-20 ED Note-Physician Basic Information Time Seen: Alvarado ORTIZ Vinicius 02/17/2021 10:02 Chief Complaint Pt reports she [...] Oral, q8hr Follow-up With When Contact Information Merged with [facility] In 1 day 02/18/2021 EDT Additional Instructions: ERIN SAMS In 3 days [address] [place] [address] [phone] Business (1) Additional Instructions: Patient Education Suicidal Feelings: How to Help Yourself Managing Anxiety, Adult Problem List/Past Medical History Ongoing No qualifying data Historical No qualifying data Medications Inpatient No active inpatient medications Home No active home medications Allergies No Known Medication Allergies Lab Results No qualifying data available. Diagnostic Results No qualifying data available. Normal [facility] Comment on above: Result [...] services (911 in the [place] ? The Critical access hospital and human services helpline (211 in the [place] ? Go to your nearest emergency department. ? Call a suicide hotline to speak with a trained counselor. The following suicide hotlines are available in the [place]: ? 9-563-768-TALK ( ). ? 1-444-XZQOCNT ( ). ? . This is a hotline for Bulgarian speakers. ? . This is a hotline for TTY users. ? 2-829-2-U-RAMILA ( ). This is a hotline for lesbian, escobar, bisexual, transgender, or questioning youth. ? For a list of hotlines in [place], visit www.suicide.org/hotl zeferino/international/c hvhrr-bastfpi-awuauh es.html ? Contact a crisis center or [...] even if you do not feel sociable. Csfd-dj-firv conversation is best to help them understand [...] can help you feel better. ? Take xvtb-ptd-hpnkucq and prescription medicines only as told by [...] Lifeline: www.suicidepreventio nlifeline.org ? Hopeline: www.hopeline.com ? [place] for Suicide Prevention: www.afsp.org ? The Ramila Project (for lesbian, escobar, bisexual, transgender, or questioning youth): www.thetrevorproject .org Contact a health care provider if: ? You feel as though you are a burden to others. ? You feel agitated, angry, vengeful, or have extreme mood swings. ? You have withdrawn from family and friends. Get (more content not included)... Normal [facility] ED Patient Summaryon 021 ED Patient Summary [place] [address] Patient Discharge Instructions Person Information Name: ZAINAB MCCLURE Age: 25 Years Arrival Date: 02/17/2021 09:42:11 Discharge Diagnosis: Anxiety; Suicidal ideation Primary Care Physician: ERIN SAMS CNP Provider Information Primary Provider: Vinicius Childers DO Advanced Sweatband Shaper:None The exam and treatment you received in the Emergency Department were for an urgent problem and are not intended as complete care. It is important that you follow up with a doctor, nurse practitioner, or physician?s insurance assistant for ongoing care. If your symptoms become worse or you do not improve as expected and you are unable to reach your usual health care provider, you should return to the Emergency Department. We are available 24 hours a day. ZAINAB MCCLURE has been given the following list of patient education materials, prescriptions and follow-up instructions: Follow-up Instructions: With: Address: When: Merged with [facility] In 1 day 02/18/2021 With: Address: When: ERIN SAMS [address] [place] [address] [phone] Business (1) In 3 days In the [...] opioids can be used to help relieve gjdwmwpn-yf-qtilmx pain and are often prescribed following a [...] care professio (more content not included)... Normal [facility] Valuables Checkliston 2020 Valuables Checklist [id number] 6#1.00CD:127 [facility] Vital Signs Date Time Vital Sign Value Performing Clinician Facility 08-24-2023 10:09-0500 Body mass index (BMI) [Ratio] 32.44 kg/m2 Ron [employer] DO Work Phone: [facility] 08-24-2023 10:09-050 Body weight 83.06 kg Ronconstance Saldivaro DO Work Phone: [facility] 08-24-2023 10:09-0500 Diastolic blood pressure 68 mm[Hg] Ronconstance SaldivarStopTheHacker Work Phone: [facility] 08-24-2023 10:09-0500 Systolic blood pressure 110 mm[Hg] Ron Ruano DO Work Phone: [facility] 03-11-2023 09:53-0400 Body height 154.9 cm Farshad Vigil [facility] Work Phone: [facility] 12-10-2022 12:07-0400 Body height 155.2 cm Suman Baker MD, PhD Work Phone: [facility] Comment on above: without shoes 12-10-2022 12:07-0400 Body mass index (BMI) [Ratio] 30.64 kg/m2 Suman Baker MD, PhD Work Phone: [facility] 12-10-2022 12:07-0400 Body temperature 97.81 [degF] Suman Baker MD, PhD Work Phone: [facility] 12-10-2022 12:07-0400 Body weight 73.8 kg Suman Baker MD, PhD Work Phone: [facility] Comment on above: without shoes 12-10-2022 12:07-0400 Diastolic blood pressure 72 mm[Hg] Suman Baker MD, PhD Work Phone: [facility] 12-10-2022 12:07-0400 Heart rate 77 /min Suman Baker MD, PhD Work Phone: [facility] 12-10-2022 12:07-0400 Respiratory rate 14 /min Suman Baker MD, PhD Work Phone: [facility] 12-10-2022 12:07-0400 SaO2% (BldA) [Mass fraction] 99 % Suman Baker MD, PhD Work Phone: [facility] Comment on above: room air 12-10-2022 12:07-0400 Systolic blood pressure 118 mm[Hg] Suman Baker MD, PhD Work Phone: [facility] 10-22-2022 13:57-0400 Body height 154.9 cm Chayo Suero MD Work Phone: [facility] 10-22-2022 13:57-0400 Body mass index (BMI) [Ratio] 30.33 kg/m2 Chayo Suero MD Work Phone: [facility] 10-22-2022 13:57-0400 Body temperature 97.59 [degF] Chayo Suero MD Work Phone: [facility] 10-22-2022 13:57-0400 Body weight 72.8 kg Chayo Suero MD Work Phone: [facility] 10-22-2022 13:57-0400 Diastolic blood pressure 62 mm[Hg] Chayo Suero MD Work Phone: [facility] 10-22-2022 13:57-0400 Heart rate 62 /min Chayo Suero MD Work Phone: [facility] 10-22-2022 13:57-0400 Respiratory rate 20 /min Chayo Suero MD Work Phone: [facility] 10-22-2022 13:57-0400 SaO2% (BldA) [Mass fraction] 99 % Chayo Suero MD Work Phone: [facility] 10-22-2022 13:57-0400 Systolic blood pressure 119 mm[Hg] Chayo Suero MD Work Phone: [facility] 10-22-2022 10:19-0400 Body height 157.5 cm Yudelka Moralez APRN-BRIM ROUNDER Work Phone: [facility] 10-22-2022 10:19-0400 Body mass index (BMI) [Ratio] 28.66 kg/m2 Yudelka Moralez APRN-BRIM ROUNDER Work Phone: [facility] 04-06-2023 10:19-0400 Body weight 71.1 kg Yudelka Moralez CASE P[employer]ER-[employer] Work Phone: [facility] 10-22-2022 10:19-0400 Diastolic blood pressure 76 mm[Hg] Yudelka Moralez CASE P[employer]ER[employer] Work Phone: [facility] 10-22-2022 10:19-0400 Systolic blood pressure 126 mm[Hg] Yudelka Moralez CASE P[employer]ER[employer]ER Work Phone: [facility] 10-22-2022 07:38-0400 Body height 157.5 cm Yudelka Moralez CASE PICKER-[employer]IM ROUNDER Work Phone: [facility] 10-22-2022 07:38-0400 Diastolic blood pressure 76 mm[Hg] Yudelka Moralez CASE PICKER-BRIM R[employer]ER Work Phone: [facility] 10-22-2022 07:38-0400 Heart rate 73 /min Yudelka Moralez CASE PICKER[employer] R[employer]ER Work Phone: [facility] 10-22-2022 07:38-0400 Systolic blood pressure 126 mm[Hg] Yudelka Moralez CASE PICKER[employer] R[employer]ER Work Phone: [facility] 10-07-2022 11:05-0400 Body height 157.5 cm Yudelka Moralez CASE PICKER-[employer]IM ROUNDER Work Phone: [facility] 10-07-2022 11:05-0400 Body mass index (BMI) [Ratio] 28.66 kg/m2 Yudelka Moralez CASE P[employer]ER[employer] R[employer]ER Work Phone: [facility] 10-07-2022 11:05-0400 Body temperature 98.2 [degF] Yudelka Moralez CASE PICKER-[employer] R[employer]ER Work Phone: [facility] 10-07-2022 11:05-0400 Body weight 71.08 kg Yudelka Moralez CASE P[employer]ER-[employer]ER Work Phone: [facility] 10-07-2022 11:05-0400 Diastolic blood pressure 74 mm[Hg] Yudelka Moralez CASE PICKER[employer] R[employer]ER Work Phone: [facility] 10-07-2022 11:05-0400 Heart rate 81 /min Yudelka Moralez CASE PICKER-[employer] R[employer]ER Work Phone: [facility] 10-07-2022 11:05-0400 Respiratory rate 16 /min Yudelka Moralez CASE PICKER[employer] R[employer]ER Work Phone: [facility] 10-07-2022 11:05-0400 SaO2% (BldA) [Mass fraction] 99 % Yudelka Moralez CASE PICKER-BRIM ROUNDER Work Phone: [facility] 10-07-2022 11:05-0400 Systolic blood pressure 120 mm[Hg] Yudelka Kirt CASE PICKER-[employer] ROUNDER Work Phone: [facility] 08-19-2022 15:43-0500 Diastolic blood pressure 88 mm[Hg] Andreas Ortega MD, MPH Work Phone: 5(228)199-970067 [place] [address] 08-19-2022 15:43-0500 Systolic blood pressure 117 mm[Hg] Andreas Ortega MD, MPH Work Phone: 5(343)868-626767 [place] [address] 07-08-2022 07:50-0500 Body height 157.5 cm Andreas Ortega MD, MPH Work Phone: 0(859)604-316167 [place] [address] 07-08-2022 07:50-0500 Body mass index (BMI) [Ratio] 28.73 kg/m2 Andreas Ortega MD, MPH Work Phone: 8(008)071-417967 [place] [address] 07-08-2022 07:50-0500 Body temperature 98.01 [degF] Andreas Ortega MD, MPH Work Phone: 8(313)644-644367 [place] [address] 07-08-2022 07:50-0500 Body weight 71.26 kg Andreas Ortega MD, MPH Work Phone: 7(241)308-384067 [place] [address] 07-08-2022 07:50-0500 Diastolic blood pressure 77 mm[Hg] Andreas Ortega MD, MPH Work Phone: [facility] 07-08-2022 07:50-0500 Heart rate 73 /min Andresa Ortega MD, MPH Work Phone: [facility] 07-08-2022 07:50-0500 Respiratory rate 16 /min Andreas Ortega MD, MPH Work Phone: [facility] 07-08-2022 07:50-0500 SaO2% (BldA) [Mass fraction] 98 % Andreas Ortega MD, MPH Work Phone: [facility] 07-08-2022 07:50-0500 Systolic blood pressure 121 mm[Hg] Andreas Ortega MD, MPH Work Phone: [facility] 06-09-2022 13:10-0500 Body mass index (BMI) [Ratio] 29.3 kg/m2 Carlos [place] CASE PICKER-BRIM ROUNDER Work Phone: [facility] 06-09-2022 13:10-0500 Body temperature 98.6 [degF] [place] CASE PICKER-[employer] R[employer]ER Work Phone: [facility] 06-09-2022 13:10-0500 Body weight 72.67 kg Carlos [place] CASE P[employer]ER[employer]ER Work Phone: [facility] 06-09-2022 13:10-0500 Diastolic blood pressure 60 mm[Hg] Carlos [place] CASE PICKER-[employer] R[employer]ER Work Phone: [facility] 06-09-2022 13:10-0500 Heart rate 80 /min Carlos [place] CASE PICKER-[employer] R[employer]ER Work Phone: [facility] 06-09-2022 13:10-0500 Respiratory rate 16 /min Carlos [place] CASE P[employer]ER[employer] R[employer]ER Work Phone: [facility] 06-09-2022 13:10-0500 SaO2% (BldA) [Mass fraction] 98 % Carlos Gomes CASE P[employer]ER[employer]ER Work Phone: [facility] 06-09-2022 13:10-0500 Systolic blood pressure 110 mm[Hg] Carlos Gomes CASE PICKER-[employer] R[employer]ER Work Phone: [facility] 05-29-2022 07:32-0500 Body temperature 98.01 [degF] Suman Baker MD, PhD Work Phone: [facility] 05-29-2022 07:32-0500 Diastolic blood pressure 64 mm[Hg] Suman Baker MD, PhD Work Phone: [facility] 05-29-2022 07:32-0500 Heart rate 77 /min Suman Baker MD, PhD Work Phone: [facility] 05-29-2022 07:32-0500 Respiratory rate 16 /min Suman Baker MD, PhD Work Phone: [facility] 05-29-2022 07:32-0500 SaO2% (BldA) [Mass fraction] 99 % Suman Baker MD, PhD Work Phone: [facility] 05-29-2022 07:32-0500 Systolic blood pressure 100 mm[Hg] Suman Baker MD, PhD Work Phone: [facility] 05-22-2022 15:50-0400 Body height 157.5 cm Suman Baker MD, PhD Work Phone: [facility] 05-22-2022 15:50-0400 Body mass index (BMI) [Ratio] 30.73 kg/m2 Suman Baker MD, PhD Work Phone: [facility] 05-22-2022 15:50-0400 Body weight 76.2 kg Suman Baker MD, PhD Work Phone: [facility] 03-31-2022 12:02-0400 Diastolic blood pressure 70 mm[Hg] [facility] Work Phone: 5(491)146-603325 [place] [address] 03-31-2022 12:02-0400 Systolic blood pressure 124 mm[Hg] [facility] Work Phone: 0(327)246-918119 [place] [address] 03-31-2022 11:53-0400 Body height 157.5 cm [facility] Work Phone: 0(213)608-136619 [place] [address] 03-19-2022 15:37-0400 Body height 158.3 cm Suman Baker MD, PhD Work Phone: 7(740)675-946819 [place] [address] 03-19-2022 15:37-0400 Body mass index (BMI) [Ratio] 30.63 kg/m2 Suman Baker MD, PhD Work Phone: 4(911)425-337119 [place] [address] 03-19-2022 15:37-0400 Body temperature 97.5 [degF] Suman Baker MD, PhD Work Phone: 2(294)628-717919 [place] [address] 03-19-2022 15:37-0400 Body weight 76.75 kg Suman Baker MD, PhD Work Phone: 2(099)495-325519 [place] [address] 03-19-2022 15:37-0400 Diastolic blood pressure 84 mm[Hg] Suman Baker MD, PhD Work Phone: 0(214)051-545819 [place] [address] 03-19-2022 15:37-0400 Heart rate 90 /min Suman Baker MD, PhD Work Phone: 3(907)747-165319 [place] [address] 03-19-2022 15:37-0400 Respiratory rate 16 /min Suman Baker MD, PhD Work Phone: 4(825)[phone] [place] [address] 03-19-2022 15:37-0400 SaO2% (BldA) [Mass fraction] 98 % Suman Baker MD, PhD Work Phone: 6(347)537-413119 [place] [address] 03-19-2022 15:37-0400 Systolic blood pressure 128 mm[Hg] Suman Baker MD, PhD Work Phone: [facility] 12-22-2021 18:05-0400 Body height 152.4 cm Ava Lundberg Other [employer] Other 12-22-2021 18:05-0400 Body mass index (BMI) [Ratio] 30.62 kg/m2 Ava Lundberg [employer] Other 12-22-2021 18:05-0400 Body temperature 99 [degF] Ava Lundberg Other [employer] Other 12-22-2021 18:05-0400 Body weight 71.12 kg Ava Lundberg Other [employer] Other 12-22-2021 18:05-0400 Diastolic blood pressure 89 mm[Hg] Ava Lundberg Other [employer] Other 12-22-2021 18:05-0400 Respiratory rate 16 /min Ava Lundberg Other [employer] Other 12-22-2021 18:05-0400 SaO2% (BldA) [Mass fraction] 99 % Ava Lundberg [employer] Other 12-22-2021 18:05-0400 Systolic blood pressure 129 mm[Hg] Ava [employer]berg Other [employer] Other Encounters Encounter Date Encounter Type Care Provider Facility Start: 10-04-2023 End: 10-04-2023 ambulatory LIZBET CAST Not Available Start: 09-25-2023 End: 09-25-2023 ambulatory Ron Alden Facility:[facility] Start: 09-20-2023 End: 09-20-2023 ambulatory RON ALDEN Not Available Start: 09-13-2023 End: 09-13-2023 ambulatory RON ALDEN Not Available Start: 09-06-2023 End: 09-06-2023 ambulatory RON ALDEN Not Available Start: 08-24-2023 End: 08-24-2023 ambulatory ORN ALDEN Not Available Start: 08-24-2023 End: 08-24-2023 flow sheet Ron Alden DO Work Phone: [facility] Comment on above: Third trimester preg lavonne Start: 08-09-2023 End: 08-09-2023 ambulatory LIZBET CAST Not Available Start: 07-14-2023 End: 07-14-2023 ambulatory RON ALDEN Not Available Start: 06-01-2023 End: 06-01-2023 ambulatory RON ALDEN Not Available Start: 04-06-2023 ambulatory ERIN S LATRELL Facilit y:[facility] Start: 03-17-2023 ambulatory ERIN S LATRELL Facilit y:[facility] Start: 03-11-2023 ambulatory ERIN S LATRELL Facilit y:[facility] Start: 03-11-2023 End: 03-11-2023 Clinical Support Encounter Suman Baker MD, PhD Work Phone: [facility] 1 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 Start: 03-11-2023 ambulatory ERIN S LATRELL Facilit y:[facility] Start: 03-11-2023 End: 03-11-2023 Subsequent hospital visit by physician Farshad Vigil [employer] Work Phone: [facility] Comment on above: Arrived Start: 01-04-2023 ambulatory ERIN LATRELL Facility: [facility] Start: 12-16-2022 ambulatory ERIN LATRELL Facility: [facility] Start: 12-10-2022 End: 12-10-2022 Office outpatient visit 15 minutes Suman Baker MD, PhD Work Phone: Division of Surgical Oncology 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) Start: 12-10-2022 ambulatory CARLOS LYMAN Facility :[facility] Start: 11-30-2022 End: 11-30-2022 ambulatory ERIN SAMS Facility:[facility] Start: 10-27-2022 ambulatory CHEIKH COELHO Facility :[facility] Start: 10-27-2022 ambulatory ERIN STONER Facility :[facility] Start: 10-22-2022 ambulatory ANDREAS ORTEGA Facility: [facility] Start: 10-22-2022 End: 10-22-2022 Office outpatient new 60 minutes Chayo Suero MD Work Phone: [facility] Comment on above: Fibromyalgia muscle pain (Primary Dx) Start: 10-22-2022 ambulatory YUDELKA KIRT Facility:[facility] Start: 10-22-2022 End: 10-22-2022 Subsequent hospital visit by physician Yudelka Moralez [employer] Work Phone: [facility] Start: 10-22-2022 ambulatory YUDELKA MORALEZ Facility:[facility] Start: 10-22-2022 End: 10-22-2022 Subsequent hospital visit by physician Yudelka Moralez [employer] Work Phone: [facility] Comment on above: Arrived Start: 10-21-2022 ambulatory YUDELKA MORALEZ Facility:[facility] Start: 10-07-2022 ambulatory ANDREAS ORTEGA Facility: [facility] Start: 10-07-2022 End: 10-07-2022 Office outpatient visit 25 minutes Yudelka Moralez CASE [employer] Work Phone: Division of Medical Oncology Comment [...] Start: 09-09-2022 End: 09-09-[address] DOCTOR GREGROY Facility:[facility] Start: 09-04-2022 Encounter for genera l adult medical examination without abnormal findings ERIN SAMS [facility] Start: 08-31-2022 End: 09-01-2022 ambulatory ERIN SAMS Facility:[facility] Start: 08-31-2022 End: 09-01-2022 Encounter for general adult medical examination without abnormal findings ERIN SAMS Facility:[facility] Start: 08-26-2022 ambulatory ANDREASGERMAN ORTEGA Facility: [facility] Start: 08-24-2022 End: 08-25-[address] DOCTOR GREGORY Facility:[facility] Start: 08-19-2022 ambulatory ANDREASGERMAN ORTEGA Facility: [facility] Start: 08-19-2022 End: 08-19-2022 Subsequent hospital visit by physician Andreas Ortega MD, MPH Work Phone: Department of Radiology Comment on above: Arrived Start: 08-19-2022 ambulatory YUDELKA MORALEZ Facility:[facility] Start: 08-19-2022 End: 08-19-2022 Subsequent hospital visit by physician Yudelka Moralez [employer] Work Phone: 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) Start: 07-06-2022 ambulatory SELF SELF Facility:[facility] Start: 06-09-2022 ambulatory SELF SELF Facility:[facility] Start: 06-09-2022 End: 06-09-2022 Postop follow up visit related to original px Carlos Gomes CASE PICKER-BRIM ROUNDER Work Phone: Division of Surgical Oncology 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 Facility:[facility] Start: 04-06-2022 Encounter for preprocedural laboratory examination DR TIMMY HALL . [facility] Start: 04-04-2022 End: 04-05-2022 ambulatory ERIN SAMS Facility:[facility] Start: 04-04-2022 End: 04-05-2022 Encounter for preprocedural laboratory examination ERIN SAMS Facility:[facility] Start: 03-31-2022 End: 03-31-2022 Subsequent hospital visit by physician Carlos Gomes CASE PICKER-BRIM ROUNDER Work Phone: [facility] Comment on above: Arrived Start: 03-19-2022 End: [...] 12-22-2021 End: 12-22-2021 ambulatory Ava Lundberg Other Retail Info Other Start: 12-22-2021 Office outpatient vi sit 15 minutes Ava Lundberg [facility] Procedures Date Procedure Procedure Detail Performing Clinician Start: 03-11-2023 Mri abdomen w/o cont rast material Yudelka Moralez CASE P[employer]ER-BRIM ROUNDER Work Phone: Start: 10-22-2022 Echo tthrc r-t 2d w/wom-mode compl spec&colr d Yudelka Kirt CASE PICKER-BRIM ROUNDER Work Phone: Start: 10-22-2022 Ct soft tissue neck w/contrast material Yudelka Kitr CASE PICKER-BRIM ROUNDER Work Phone: Start: 10-22-2022 Ct thorax w/contrast material Yudelka Kirt CASE P[employer]ER-BRIM ROUNDER Work Phone: Start: 10-07-2022 Natriuretic peptide Yudelka Moralez CASE P[employer]ER-BRIM ROUNDER Work Phone: Start: 08-19-2022 Creatinine blood Marciano Ortega MD, MPH Work Phone: Start: 08-19-[address] atten uation skull base mid-thigh Yudelka Kirt CASE PICKER-BRIM ROUNDER Work Phone: Start: 05-29-2022 Assay of magnesium [...] C A, IPB, CHM7, MGO #### [facility] (DEFAULT) [address] [place] [address] Start: 05-22-2022 Calcium ionized Suman Baker MD, [...] 03-31-2022 Ct thorax w/contrast material Carlos Gomes CASE PICKER-BRIM ROUNDER Work Phone: Start: 03-19-2022 CBC AND ELECTRONIC DIFF Carlos Gomes CASE PICKER-BRIM ROUNDER Work Phone: Start: 03-19-2022 Complete blood count with white cell differential, automated Carlos Gomes CASE PICKER-BRIM ROUNDER Work Phone: Start: 03-19-2022 Comprehensive metabo lic panel Carlos Gomes CASE PICKER-BRIM ROUNDER Work Phone: Plan of Treatment Date Care Activity Detail Author Start: 10-28-2023 End: 10-28-2023 Patient encounter procedure 10/28/2023 1:00 PM EDT Office Visit [facility] [address] [place] [address] Deborah Eli, Kelton Mari MD [address] [place] [address] General and Gastrointestinal [facility] Start: 09-08-2023 End: 09-08-2023 Patient encounter procedure 09/08/2023 10:40 AM EST Routine [facility] [address] [id number] Ron Ruano, DO [address] [facility] [address], [place] [address] [facility] Start: 06-17-2023 End: 06-17-2023 Patient encounter procedure 06/17/2023 1:30 PM EST Office Visit Division of Surgical Oncology [address] [place] [address] Suman Baker MD, PhD [address] [place] [address] Division of Surgical Oncology Start: 06-17-2023 End: 06-17-2023 Patient encounter procedure 06/17/2023 12:20 PM EST Appointment [facility] [address] [facility] [address] [place] [address] Suman Baker MD, PhD [address] [place] [phone] [facility] Start: 03-19-2023 Influenza vaccination [facility] Start: 03-17-2023 End: 03-17-2023 Patient encounter procedure Division of Medical Oncology Start: 03-11-2023 End: 03-11-2023 Patient encounter procedure 03/11/2023 Office Visit Surgical Oncology Suman Baker MD, PhD [address] [place] [phone] Division of Surgical Oncology Start: 03-11-2023 End: 03-11-2023 Patient encounter procedure Imaging [facility] Start: 12-22-2022 End: 12-22-2022 Patient encounter procedure 12/22/2022 Office Visit Cardiovascular Medicine Marisela Velásquez, CASE PICKER-BRIM ROUNDER [address] [place] [address] Cardiology [facility] 5 Start: 12-17-2022 End: 12-17-2022 Patient encounter procedure 12/17/2022 Office Visit Oncology Andreas Ortega MD, MPH [address] [place] [address] Division of Medical Oncology Start: 12-10-2022 End: 12-11-2023 CT Abdomen and Pelvis W contrast IV CT ABDOMEN/PELVIS WITH CONTRAST Imaging Routine Primary malignant neuroendocrine tumor of appendix Expected: 12/10/2022, Expires: 12/11/[address] [facility] Comment on above: Expected: 12/10/2022, Expires: Start: 12-10-2022 End: 12-11-2023 CT Chest W contrast IV CT CHEST WITH CONTRAST Imaging Routine Primary malignant neuroendocrine tumor of appendix Expected: 12/10/2022, Expires: 12/11/[address] [facility] Comment on above: Expected: 12/10/2022, Expires: Start: 12-10-2022 End: 12-10-2022 Patient encounter procedure [facility] Start: 12-07-2022 End: 06-09-2023 CT Abdomen and Pelvis W contrast IV CT ABDOMEN/PELVIS WITH CONTRAST Imaging Routine Primary malignant neuroendocrine tumor of appendix Expected: 12/07/2022, Expires: 06/09/[address] [facility] Comment on above: Expected: 12/07/2022, Expires: 3 Start: 11-05-2022 End: 11-05-2022 Patient encounter procedure 11/05/2022 Office Visit Oncology Andreas Ortega MD, MPH [address] [facility] [address] [place] [phone] Division of Medical Oncology Start: 10-27-2022 End: 10-27-2022 Patient encounter procedure 10/27/2022 Office Visit Cardiovascular Medicine Cheikh Coelho MD [address] [place] [phone] Cardiology [facility] 5 Start: 10-27-2022 End: 10-27-2022 ambulatory 10/27/2022 Telemed Clin Support Genetics Erin Stoner, [facility] [address] [facility] [address] [place] [phone] Division of Human Genetics Start: 10-21-2022 Subsequent hospital visit by physician 10/21/2022 Hospital Encounter Computerized Tomography Scan Yudelka Moralez APRN-BRIM ROUNDER [address] [place] [address] [facility] Start: 10-21-2022 End: 10-21-2022 Patient encounter procedure 10/21/2022 Appointment Echocardiography Yudelka Moralez APRN-BRIM ROUNDER [address] [place] [address] [facility] Start: 10-07-2022 End: 10-08-2023 CT Chest W contrast IV CT CHEST WITH CONTRAST Imaging Routine Carcinoid syndrome SOB (shortness of breath) Tachycardia Primary malignant neuroendocrine tumor of appendix Expected: 10/07/2022, Expires: 10/08/[address] [facility] Comment on above: Expected: 10/07/2022, Expires: 4 Start: 10-07-2022 End: 10-08-2023 CT Neck W contrast IV CT NECK WITH CONTRAST Imaging Routine Primary malignant neuroendocrine tumor of appendix Expected: 10/07/2022, Expires: 10/08/[address] [facility] Comment on above: Expected: 10/07/2022, Expires: 4 Start: 08-26-2022 End: 08-26-2022 Telemedicine consultation with patient 08/26/2022 Telemedicine Oncology Andreas Ortega MD, MPH [address] [facility] [address] [place] [address] Division of Medical Oncology Start: 08-19-2022 End: 08-19-2022 Patient encounter procedure Imaging [facility] Start: 07-08-2022 End: 07-08-2023 Complete blood count with white cell differential, automated CBC, EDIF, PLATELET Lab Routine Primary malignant neuroendocrine tumor of appendix Expected: 07/08/2022, Expires: 07/08/[address] [facility] Comment on above: Expected: 07/08/2022, Expires: 3 Start: 07-08-2022 End: 07-08-2023 Comprehensive metabolic 2000 panel - Serum or Plasma COMPREHENSIVE METABOLIC PANEL Lab Routine Primary malignant neuroendocrine tumor of appendix Expected: 07/08/2022, Expires: 07/08/[address] [facility] Comment on above: Expected: 07/08/2022, Expires: 3 Start: 07-08-2022 End: 07-08-2023 CT Abdomen and Pelvis WO and W contrast IV CT ABDOMEN/PELVIS WITH AND WITHOUT CONTRAST Imaging Routine Primary malignant neuroendocrine tumor of appendix Expected: 07/08/2022, Expires: 07/08/[address] [facility] Comment on above: Expected: 07/08/2022, Expires: 3 Start: 07-08-2022 End: 07-08-2023 Lactate dehydrogenase [Enzymatic activity/volume] in Serum or Plasma LACTATE DEHYDROGENASE Lab Routine Primary malignant neuroendocrine tumor of appendix Expected: 07/08/2022, Expires: 07/08/[address] [facility] Comment on above: Expected: 07/08/2022, Expires: 3 Start: 07-08-2022 End: 07-08-2023 PT Skull base to mid-thigh NUC PET NEUROENDOCRINE Imaging Routine Primary malignant neuroendocrine tumor of appendix Expected: 07/08/2022, Expires: 07/08/[address] [facility] Comment on above: Expected: 07/08/2022, Expires: 3 Start: 07-08-2022 End: 07-08-2022 Patient encounter procedure 07/08/2022 Office Visit Oncology Andreas Ortega MD, MPH [address] [place] [phone] Division of Medical Oncology Start: 07-06-2022 End: 07-06-2022 Telemedicine consultation with patient 07/06/2022 Telemedicine Surgical Oncology Carlos Gomes APRN-BRIM ROUNDER [address] [place] [address] [facility] [place] Start: 06-09-2022 End: 06-09-2022 Patient encounter procedure 06/09/2022 Office Visit Surgical Oncology Carlos Gomes CASE PICKER-BRIM ROUNDER [address] [place] [address] Division of Surgical Oncology Start: 04-21-2022 End: 04-21-2022 Evaluation and management of inpatient 04/21/2022 Surgery Multispecialty Suman Baker MD, PhD [address] [place] [phone] COLECTOMY PARTIAL LAPAROSCOPIC CCCT PERIOP Comment on above: COLECTOMY PARTIAL LAPAROSCOPIC Start: 04-21-2022 End: 04-21-2022 Laparoscopy colectomy partial w/anastomosis COLECTOMY PARTIAL LAPAROSCOPIC Primary malignant neuroendocrine tumor of appendix 04/21/2022 7:15 AM EDT [facility] Start: 04-21-2022 Evaluation and management of inpatient 04/21/2022 Hospital Encounter Multispecialty Suman Baker MD, PhD [address] [place] [address] Primary malignant neuroendocrine tumor of appendix CCCT PERIOP Comment on above: Primary malignant neuroendocrine tumor o f appendix Start: 03-19-2022 End: 03-19-2023 Colonoscopy flx dx w/collj spec when pfrmd DIAGNOSTIC COLONOSCOPY GI/Bronch STAT Primary malignant neuroendocrine tumor of appendix Expected: 03/19/2022, Expires: 03/19/[address] [facility] Comment on above: Expected: 03/19/2022, Expires: 3 Start: 03-19-2022 Influenza vaccination INFLUENZA VACCINE (#1) [facility] Start: 03-19-2022 End: 03-19-2023 TYPE AND SCREEN - PREADMISSION TYPE AND SCREEN - PREADMISSION Blood Bank Routine Primary malignant neuroendocrine tumor of appendix Expected: 03/19/2022, Expires: 03/19/[address] [facility] Work Phone: Comment on above: Expected: 03/19/2022, Expires: 3 Start: 07-10-2021 COVID-19 VACCINE (2 - Pfizer risk series) COVID-19 VACCINE (2 - Pfizer risk series) [facility] Start: 07-10-2021 COVID-19 VACCINE (2 - Pfizer series) COVID-19 VACCINE (2 - Pfizer series) [facility] Start: 08-14-2020 Tetanus vaccination TETANUS [facility] Start: 2018 Screening for malignant neoplasm of cervix CERVICAL CANCER SCREENING DISCUSSION [facility] Start: 2016 Third diphtheria, tetanus and acellular pertussis (DTaP) vaccination TDAP (ADULT) [facility] Start: 2016 Zoster vaccine hzv live for subcutaneous use ZOSTER (SHINGLES) VACCINE (1 of 2) [facility] Start: 2015 Tetanus vaccination TETANUS [facility] Start: 2013 Screening for Chlamydia trachomatis CHLAMYDIA SCREEN [facility] Start: 2012 HIV screening HIV SCREENING DISCUSSION [facility] Start: 02-11-2011 Vaccination for human papillomavirus HPV VACCINE ADOL (2 - 2-dose series) [facility] Start: 09-11-2010 Vaccination for human papillomavirus HPV VACCINE ADOL (2 - Risk 3-dose series) [facility] Start: 2008 Vaccination for human papillomavirus HPV VACCINE ADOL (1 - 2-dose series) [facility] Start: 2003 PNEUMOCOCCAL VACCINE SERIES (1 - PCV) PNEUMOCOCCAL VACCINE SERIES (1 - PCV) [facility] Start: 1997 GONORRHEA SCREEN GONORRHEA SCREEN [facility] Start: 1997 Hepatitis C antibody, confirmatory test HEPATITIS C VIRUS SCREENING [facility] Start: 1997 Hepatitis C screening HEPATITIS C VIRUS SCREENING [facility] Start: 1997 Screening for Chlamydia trachomatis GONORRHEA SCREEN [facility] CHROMOGRANIN A CHROMOGRANIN A L ab Routine Primary malignant neuroendocrine tumor of appendix 03/11/2023 11:44 AM EDT [facility] Work Phone: End: 03-31-2022 CT Abdomen and Pelvis W contrast IV [facility] Work Phone: Comment on above: 1 Occurrences starting 03/31/2022 until 03/31/2022 End: 08-14-2022 CT Abdomen and Pelvis WO and W contrast IV [facility] Work Phone: Comment on above: 1 Occurrences starting 08/14/2022 until 08/14/2022 Ecg routine ecg w/le ast 12 lds trcg only w/o i&r TX ECG, TRACING ONLY TX - OFFICE PERFORMED Routine Primary malignant neuroendocrine tumor of appendix Ordered: 03/19/[address] [facility] Comment on above: Ordered: 03/19/2022 Echocardiography ECHOCARDIOGRAM Echocardiography Routine Carcinoid syndrome SOB (shortness of breath) Tachycardia Ordered: 10/07/[address] [facility] Comment on above: Ordered: 10/07/2022 Laparoscopy colectom y partial w/anastomosis COLECTOMY PARTIAL LAPAROSCOPIC Primary malignant neuroendocrine tumor of appendix [facility] End: 03-09-2023 Magnetic resonance imaging of abdomen and pelvis with contrast MRI ABDOMEN/PELVIS WITHOUT AND WITH CONTRAST Imaging Routine Primary malignant neuroendocrine tumor of appendix 1 Occurrences starting 03/09/2023 until 03/09/[address] [facility] Comment on above: 1 Occurrences starting 03/09/2023 until 03/09/2023 Removal of kike TX STAPLE REM OVAL TX - OFFICE PERFORMED Routine Primary malignant neuroendocrine tumor of appendix Ordered: 06/09/[address] [facility] Comment on above: Ordered: 06/09/2022 SURG PATH REQUEST [facility] Comment on above: Release Upon Ordering for 1 Occurrences starting 05/22/2022, 1 completed Immunizations Immunization Date Immunization Notes Care Provider Chhaya dhillon 04-28-2021 influenza virus vaccine, unspecified formulation Carlos Gomes APRN-TASH Work Phone: [facility] Payers Date Payer Category Payer Self-pay 2022 Unknown [id number] 2021 Managed Care HMO (unspecified) PARAMOUNT HMO PARAMOUNT HMO [id number] 2021-Present [address] [place] [address] HMO [id number] 2021 Unknown PARAMOUNT NELIDA UNT PREFERRED PPO [id number] 2021-Present [phone] [address] [place] [address] PPO [id number] 1997 Unknown [id number] 2.16.840.1.327427.3.579.2 .593 1997 Unknown [id number] 2.16.840.1.512939.3.579.2 .593 1997 Unknown [id number] 2.16.840.1.619949.3.579.2 .593 1997 Unknown [id number] 2.16.840.1.719033.3.579.2 .593 1997 Unknown [id number] 2.16.840.1.613551.3.579.2 .593 1997 Unknown [id number] 2.16.840.1.297110.3.579.2 .593 1997 Unknown [id number] 2.16.840.1.876598.3.579.2 .593 1997 Unknown [id number] 2.16.840.1.016975.3.579.2 .593 1997 Unknown [id number] 2.16.840.1.254347.3.579.2 .593 1997 Unknown [id number] 2.16.840.1.881265.3.579.2 .593 1997 Unknown [id number] 2.16.840.1.772938.3.579.2 .593 1997 Unknown [id number] 2.16.840.1.025023.3.579.2 .593 1997 Unknown [id number] 2.16.840.1.890119.3.579.2 .593 1997 Unknown [id number] 2.16.840.1.429268.3.579.2 .593 1997 Unknown [id number] 2.16.840.1.238661.3.579.2 .593 1997 Unknown [id number] 2.16.840.1.339094.3.579.2 .593 1997 Unknown [id number] 2.16.840.1.242562.3.579.2 .593 1997 Unknown [id number] 2.16.840.1.084046.3.579.2 .594 1997 Unknown [id number] 2.16.840.1.970752.3.579.2 .594 1997 Unknown [id number] 2.16.840.1.019481.3.579.2 .594 1997 Unknown [id number] 2.16.840.1.128700.3.579.2 .594 1997 Unknown [id number] 2.16.840.1.166774.3.579.2 .594 1997 Unknown [id number] 2.16.840.1.780867.3.579.2 .594 1997 Unknown [id number] 2.16.840.1.618887.3.579.2 .594 1997 Unknown [id number] 2.16.840.1.584365.3.579.2 .594 1997 Unknown [id number] 2.16.840.1.031935.3.579.2 .594 1997 Unknown [id number] 2.16.840.1.691804.3.579.2 .594 1997 Unknown [id number] 2.16.840.1.920936.3.579.2 .594 1997 Unknown [id number] 2.16.840.1.648853.3.579.2 .594 1997 Unknown [id number] 2.16.840.1.356779.3.579.2 .594 1997 Unknown [id number] 2.16.840.1.900298.3.579.2 .594 1997 Unknown [id number] 2.16.840.1.157969.3.579.2 .594 1997 Unknown [id number] 2.16.840.1.413998.3.579.2 .594 1997 Unknown [id number] 2.16.840.1.963819.3.579.2 .594 1997 Unknown [id number] 2.16.840.1.245084.3.579.2 .594 1997 Unknown [id number] 2.16.840.1.160189.3.579.2 .594 1997 Unknown [id number] 2.16.840.1.039927.3.579.2 .594 1997 Unknown [id number] 2.16840.1.658234.3.579.2 .594 1997 Unknown [id number] 2.16840.1.898427.3.579.2 .594 1997 Unknown [id number] 2.16.840.1.534184.3.579.2 .594 1997 Unknown [id number] 2.16.840.1.747127.3.579.2 .594 1997 Unknown [id number] 2.16.840.1.723582.3.579.2 .594 1997 Unknown [id number] 2.16840.1.520069.3.579.2 .594 1997 Unknown [id number] 2.16.840.1.407976.3.579.2 .594 1997 Unknown [id number] 2.16.840.1.561998.3.579.2 .594 1997 Unknown [id number] 2.16.840.1.525115.3.579.2 .1259 1997 Unknown [id number] 2.16.840.1.352506.3.579.2 .1259 1997 Unknown [id number] 2.16.840.1.670491.3.579.2 .1259 1997 Unknown [id number] 2.16.840.1.483235.3.579.2 .1259 1997 Unknown [id number] 2.16.840.1.786003.3.579.2 .1259 1997 Unknown [id number] 2.16.840.1.552754.3.579.2 .9 1997 Unknown [id number] 2.16.840.1.700897.3.579.2 .1259 1997 Unknown [id number] 2.16.840.1.193065.3.579.2 .1259 1959 Unknown [id number] Unknown [id number] 2.16.840.1.791300.19 Unknown [id number] 2.16.840.1.862769.3.579.2 .531 Social History Date Type Detail Facility Unknown if ever smoked Retail Info Other Start: 12-16-2022 End: 03-11-2023 Sex Assigned At [facility] Tobacco smoking stat us NCIS Tobacco smoking consumption unknown [facility] Work Phone: Start: 1995 Sex Assigned At Not on file [facility] Start: 03-19-2022 End: 04-14-2022 Tobacco smoking status NCIS Never smoked tobacco [facility] Start: 03-31-2022 End: 03-11-2023 Alcohol intake Ex-drinker (finding) [facility] Start: 03-19-2022 History SDOH Alcohol Comment last alchohol 2019; mixed drink rarely [facility] Start: 04-14-2022 Tobacco use and exposure Smokeless tobacco non-user [facility] Start: 05-12-2022 End: 08-19-2022 Exposure to SARS-CoV-2 (event) Not sure [facility] Start: 06-28-2022 End: 07-08-2022 Exposure to SARS-CoV-2 (event) Unable to assess [facility] Start: 12-16-2022 End: 03-11-2023 History of Social function [facility] Adolescent depressio n screening assessment [address] [facility] Start: 01-12-2023 [facility] Start: 1995 Sex Assigned At Female [facility] Start: 01-25-2023 Gender identity Identifies as female gender (finding) [facility] Start: 01-25-2023 Sexual orientation Heterosexual (finding) [facility] Healthcare Goals Date Patient Goal Desired Activity /State Personal health goal Clinical Notes 12-22-2021 to 08-24-2023 Ron Ruano [facility] 08/24/2023 10:10 AM Kailey Blunt, [facility] 12/10/2022 12:30 PM Malathi Vigil, [facility] 12/10/2022 12:30 PM EDTPatient InstructionsPatient InstructionsAttachments Note [...] nursing note reviewed. Exam conducted with a cable coverer present. Vitals: Estimated body mass index is [...] Ron Ruano DO documented in this encounter [facility] 12-10-2022 History of Present illness Narrative Chief Complaint: Chief Complaint Patient presents with Follow-up HPI: Zainab Swift is a 27 y.o. female who presents to [facility] for post-operative [...] (Patient not taking: Reported on 07/06/2022) Pancrelipase, Rsw-Nwyz-Cwfv, (Creon) [id number] units Cap DR Particles Take two caps [...] 27 y.o. female who presents to [facility] for post-operative [...] (Patient not taking: Reported on 07/06/2022) Pancrelipase, Qpv-Rtoe-Menx, (Creon) [id number] units Cap DR Particles Take two caps [...] or change in clinical status. Farshad Vigil APRN-BRIM ROUNDER Attending Physician Note I interviewed and examined this patient with the DIRECTOR OF IN SERVICE EDUCATION/fellow/resident. I reviewed the history and exam detailed [...] months with repeat imaging. Suman Baker MD/PhD customer relations coordinator Division of Surgical Oncology Department of Surgery documented in this encounter [facility] 12-10-2022 Instructions MAMTA Villagran - 12/10/2022 12:30 PM EDT documented in this encounter [facility] 10-22-2022 History of Present illness Narrative I [...] ulcers, vision changes. 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 [facility]. This handout is for informational purposes only. Talk with your doctor or healthcare team if you have any questions about your care. For more health information call the Library for Health Information at [phone] or email: [email or web address] [facility] documented in this encounter [facility] 10-22-2022 History of Present illness Narrative Intravenous access obtained and remained for next appointment in cardioology at [facility]. 22 gauge IV in left ac. Dressing intact and/or coban used to secure access. Patient instructed to report directly to next appointment. documented in this encounter [facility] 10-07-2022 Note Acute Coronary Syndr ome (ACS): Initial Evaluation and Management: [email or web address] [facility] 10-07-2022 History of Present illness Narrative Images [...] able to do housework. 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 Eating ok. Weight [...] Reported on 07/06/2022) 30 tablet 0 Pancrelipase, Zbw-Svaa-Ednh, (Creon) [id number] units Cap DR Particles Take two caps [...] OR COLONOSCOPY DIAGNOSTIC 04/08/2022 APPENDECTOMY LAPAROSCOPIC 02/03/2022 [place], [place] Past medical, surgical, family, and social [...] symptoms. MAMTA Travis Endocrine Tumor Program [facility] and Mohamud Aguirre [facility] To discuss with Dr. Ortega documented in this encounter [facility] 10-07-2022 Instructions Johana Lutz RN - 10/07/2022 [...] script to Zainab Thank you for choosing [facility] for your cancer care. FMLA/Disability forms: Please allow up to 2 weeks for the forms to be returned to you +++ should you need any FMLA, Short term disability or MCC disability forms filled out please fax them to (f) [phone] ++++ Refill requests: Please allow 24-48 hours for a response My chart message response: PLEASE DO NOT SEND IN URGENT/EMERGENT MESSAGES VIA MY CHART. Please allow up to 24-48 hours for a response via my chart. Should you have questions or concerns, please call [phone] documented in this encounter [facility] 07-08-2022 History of Present illness Narrative Images [...] quickly and requires nap. 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 Better appetite with [...] Surgeon: Suman Baker MD, PhD; [facility] 04/08/2022 APPENDECTOMY LAPAROSCOPIC 02/03/2022 [place], [place] Social History Socioeconomic History Marital status: [...] recommendations. MAMTA Travis Neuroendocrine Tumor Program [facility] and Mohamud Aguirre [facility] Addendum by Dr. Ortega: IAttending Addendum:I [...] She was seen [facility] Suman Baker [facility] in 03/[address] chest revealed [...] and fatigue. ECOG PS 1. 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 1. Metastatic, well differentiated, grade 1, appendicular [...] placebo groups was 14.3 and 6 months (p=[id number]), respectively. The CLARINET study, [which enrolled patients [...] LFTs at [facility]. documented in this encounter [facility] 07-08-2022 Instructions Yina Amaya RN - 07/08/2022 [...] Tylenol Cancel pathology-done documented in this encounter [facility] 06-09-2022 History of Present illness Narrative Chief Complaint: Chief Complaint Patient presents with Follow-up HPI: Zainab Swift is a 27 y.o. female who presents to [facility] for post-operative [...] status. MAMTA Carrion documented in this encounter [facility] 06-09-2022 Instructions Veronique Calvin RN - 06/09/2022 1:15 PM EST Tele health visit with Carlos Eliseo BIANCHI in 4 weeks on a Wednesday. Referral placed to neuroendocrine oncology. Return in [address] Baker with scans same day. documented in this encounter [facility] 05-29-2022 Note Formatting of this [...] via wheelchair [facility] 1147[facility] Miscellaneous Notes Patient and spouse given [...] and assistance is needed, please page the reducing salon attendant PCRM at [phone]. Patient did well overnight. Patient pain mostly [...] multiple times yesterday. 2123: Moonlighter paged: Rm 1204Jamison: FYI pt states that she can't tolerate taking the olanzapine disintegrating tablet because of the NG. Thanks [id number] Q1 safety rounds completed. Patient pain controlled [...] Providers Updated In IHIS Yes Contact Information Munitions Worker/SW Added to Care Team Yes This Mirror Silverer is Primary Munitions Worker/SW Yes (Antonio Jiang RN [facility] [phone]) Munitions Worker Name Pinky Barcenas RN [facility] Munitions Worker's Social Work Contact Name Bailey Magallanes BILINGUAL SALES ASSISTANT, BUMPER STRAIGHTENER Reaming Machine Operator For Plastic's Living Environment Lives With spouse Living Arrangements [...] Education And Care For Discharge? Phill Swift [phone] Can Support Person Meet The Care Needs Of The Patient? 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 Employment/Financial Concerns no Source Of Income salary/wages Financial Concerns none Insurance Medical Insurance Verified Yes Prescription Coverage Yes Pharmacy updated in IHIS Yes Initial Discharge Planning Home Care Services (TECHNICAL ACCOUNT MANAGER) No Home Therapies (TECHNICAL ACCOUNT MANAGER) None DME (TECHNICAL ACCOUNT MANAGER) None Medical Supplies (TECHNICAL ACCOUNT MANAGER) None Patient Goal for Discharge Return home with assistance from family and friends Anticipated discharge disposition Home Anticipated Services at Discharge Outpatient follow up Anticipated Changes Related to Illness none Current Discharge Risk high risk diagnoses (i.e., CHF, Stroke, DM, chronic pain, abdominal pain, nausea and vomiting) Transportation Available car Home Care Services (TECHNICAL ACCOUNT MANAGER) Additional Home Care Services (TECHNICAL ACCOUNT MANAGER) no Assessment/Concerns to be Addressed Concerns To [...] Lines/Drains/Tubes Abdominal incision with dressing x 2 [place] drain x 1-under distal dressing NG-low wall [...] Report called to Jevon EMERY on 12 [facility]. All questions answered. 1514: Patient discharged from [facility] PACU per protocol. Patient transported via gurney with side rails up x2 with HOB>30 degrees to room 1204 [facility] by Natalia EMERY and Dang LISA. Family called to patient's bedside. 1310: Patient arrives in [facility] PACU from OR via gurney with side rails up x2 with HOB >30 degrees, accompanied by Anesthesiologist: Vinicius Gupta DO; Chayo Benson MD Winder Operator: VIJAYA Gamboa; VIJAYA Lopez Environmental Aide Assisting: Richard Bradshaw MD Legal Process Specialist: Wali Art. Patient placed on monitors, VSS. Report received from anesthesia. Patient assessed, see assessment. 1427: PACU labs and abdominal xray for NG placement cleared by Miguel Betancourt at this time. 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 JR drain placed in pelvis. SURGEON Surgeon(s) and Role: * Suman Baker MD, PhD - Primary ANESTHESIOLOGIST Anesthesiologist: Vinicius Gupta DO; Chayo Benson MD Winder Operator: VIJAYA Gamboa; VIJAYA Lopez Environmental Aide Assisting: Richard Bradshaw MD Legal Process Specialist: Wali Art SURGICAL STAFF Inspector Filters: Piedad Maki RN; Rima Medel RN Relief Inspector Filters: Suri Stockton RN Relief Scrub: Ghanshyam Townsend [...] May 22, 2022 1:06 PM Zainab Jamison ([id number]) PRE OPERATIVE DIAGNOSIS Primary malignant neuroendocrine tumor [...] Anesthesiologist: Vinicius Gupta DO; Chayo Benson MD Winder Operator: VIJAYA Gamboa; VIJAYA Lopez Environmental Aide Assisting: Richard Bradshaw MD Legal Process Specialist: Wali Art SURGICAL STAFF Inspector Filters: Piedad Maki RN; Rima Medel RN Relief Inspector Filters: Suri Stockton RN Relief Scrub: Ghanshyam Townsend [...] 1:04 PM SURGEONS: Suman Baker MD, PhD ATTENUATOR SURGEON: Rodolfo Arnold MD PROCEDURE: - Exploratory [...] second timeout per standard procedure at the [facility]. We made a midline incision using [...] the vessel and was taken with an Everypoint-KARRIE sarmiento stapler device. Next, we began the mboovs-cz-aftxqlg dissection to mobilize the colonic mesentery. We [...] filed. We then proceeded with creating a hqik-wi-dllt functional end-to-end anastomosis between the distal ileum [...] Seen 05/22/22 documented in this encounter [facility] 05-29-2022 Hospital course Narrative Discharge Summary Name: [...] Upcoming Appointments (up to five)-Some appointments for [facility] outpatient clinics or diagnostic testing locations are not displayed below Provider Department Dept Phone 06/09/2022 1:15 PM Carlos Gomes Division of Surgical Oncology Arrive at: Arrive to [facility] Registration [phone] documented in this encounter [facility] 05-28-2022 Note Formatting of this n ote [...] and assistance is needed, please page the reducing salon attendant PCRM at [phone]. [facility] 05-28-2022 History of Present illness Narrative [...] the care of Zainab Swift. Please page [phone] or call [phone] with any questions or concerns. Elroy Powell MD Acute Pain Service Senior Resident @ [phone] Subjective: Passing gas and having regular BMs. [...] Oanh Betancourt, SPENCER-TASH B surgery G3 service [id number] Anesthesia Acute Pain Progress Note Zainab Swift [...] acute pain service at [phone] or call [phone] with any questions or concerns. Yann Burr [...] with MAMTA Wisdom B surgery G3 service [id number] Psychosocial Assessment Per chart review, patient is a is a 27 y.o. 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 PMH: anxiety, borderline personality disorder, depression, GERD SW met with patient to introduce self, explain clinical social worker role during inpatient stay, and answer patient questions. Patient was alert and oriented x4 and agreeable to SW visit. Information Source Information Source: patient , review of medical record, spouse Information Source Name: Arlette Swift Information Source Number: see demographics Contact Information Munitions Worker Name: Pinky Smith RN [facility] Munitions Worker's Social Work Contact Name: Bailey WILLAMS BUMPER STRAIGHTENER Reaming Machine Operator For Plastic's Living Environment Lives With: spouse Living Arrangements: house (one story house wiith 3 Steps to enter) Provides Primary Care For: no one Primary Care Provided By: spouse/significant other, self Support System: Immediate family Able to Return to Prior Arrangements: yes Employment/Financial Employed?: Yes 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 Health Insurance / Rx: [id number] [place] [address] [address] [facility] [facility] [address] [facility] Anticipated Discharge Plan: Pt report she plans to return home with care and transportation provided by her . Medical Team Considerations: None SW Interventions/Recommendations: Service SW name and contact information placed on white board in patient's room to contact as needed. SW will continue to remain available to provide assistance and support as needed during inpatient stay. IMER Christina, BUMPER STRAIGHTENER SONC and HPB Reaming Machine Operator For Plastic Pager: [phone] For Evening (4:30pm-8am) and Weekend SW needs please call [phone] or page [phone] Anesthesia Acute Pain Progress Note Zainab Swift [...] acute pain service at [phone] or call [phone] with any questions or concerns. Yann Burr [...] Plan was discussed with Dr. Oanh Colón APRN-BRIM ROUNDER [facility] surgery G3 service [id number] Anesthesia Acute Pain Progress Note Zainab Swift [...] acute pain service at [phone] or call [phone] with any questions or concerns. Yann Burr [...] interviewed and examined this patient with the DIRECTOR OF IN SERVICE EDUCATION/fellow/resident. I reviewed the history and exam detailed in the note and have edited it as necessary. I agree with the medical decision making unless otherwise noted below. The patient is doing well. Her pain is well controlled. She is mildly distended on exam. We will continue NPO with NGT until return of bowel function. Suman Baker MD/PhD customer relations coordinator Division of Surgical Oncology Department of Surgery [...] Plan was discussed with Dr. Oanh Colón, CASE PICKER-BRIM ROUNDER HP[facility] surgery G3 service [id number] HP[facility] Surgery Note Subjective: Patient doing well [...] acute pain service at [phone] or call [phone] with any questions or concerns. Yann Burr [...] Oncology Fellow Anesthesia Acute Pain Progress Note Zaianb Swift is a 27 y.o. female who [...] acute pain service at [phone] or call [phone] with any questions or concerns. Yann Burr [...] acute pain service at [phone] or call [phone] with any questions or concerns. Richard Bradshaw MD residential door unit installer [facility] documented in this encounter [facility] 05-27-2022 Note Formatting of this [...] with stand-by assistance from multiple times yesterday. [facility] 05-26-2022 Consult note Formatting of th is [...] 1: Location: forearm, anterior, right Device/Lot Number: [id number] catheter system Gauge/Length: 1 3/4 in length;20 gauge Unsuccessful Insertion Attempts: 1 Unsuccessful Attempt Location/Site: Pain Prevention/Patient Tolerance: distraction;tolerated well;appears comfortable Removal: Additional Comments: placed by Carla Mccurdy RN Lumen 2: Lumen 3: Peripheral IV Present on Admission: (Retired/Read Only) Location: (Retired/Read Only) Device: (Retired/Read Only) Gauge/Length: Clinical Trials Specialist/Lot Number: Unsuccessful Insertion Attempts: (Retired/Read Only) Unsuccessful [...] care of this patient. Vascular Access Team [id number] [facility] 05-26-2022 Consult note Formatting of th [...] 1: Location: forearm, anterior, right Device/Lot Number: [id number] catheter system Gauge/Length: 1 3/4 in length;20 gauge Unsuccessful Insertion Attempts: 1 Unsuccessful Attempt Location/Site: Pain Prevention/Patient Tolerance: distraction;tolerated well;appears comfortable Removal: Additional Comments: placed by Carla Mccurdy RN Lumen 2: Lumen 3: Peripheral IV Present on Admission: (Retired/Read Only) Location: (Retired/Read Only) Device: (Retired/Read Only) Gauge/Length: Clinical Trials Specialist/Lot Number: Unsuccessful Insertion Attempts: (Retired/Read Only) Unsuccessful [...] care of this patient. Vascular Access Team [id number] documented in this encounter [facility] 05-25-2022 Note Formatting of this n ote might be different from the original. 2123: Gabriella paged: Rm 1204Jamison: ERIK pt states that she can't tolerate taking the olanzapine disintegrating tablet because of the NG. Thanks [id number] [facility] 05-22-2022 Note Formatting of this [...] outcomes by discharge/transition of care. Outcome: Ongoing [facility] 05-22-2022 Note Formatting of this n ote might be different from the original. I certify that this patient requires inpatient services at this time. I anticipate the expected length of stay will include at least two midnights. Inpatient services are due to the following medical concerns appendiceal NET. Plans for post hospitalization care will be discharge to home. [facility] 05-22-2022 Note Formatting of this n ote is different from the original. 05/22/22 1604 Referral Information Arrived From home or self-care;operating room Readmission Information Was patient readmitted within 30 Days? No Information Source Information Source patient Information Source Name Zainab Swift-in person Information Source Number Demographics reviewed Outpatient Providers Outpatient Providers Updated In IHIS Yes Contact Information Munitions Worker/SW Added to Care Team Yes This Mirror Silverer is Primary Munitions Worker/SW Yes (Antonio Jiang RN PCR [phone]) Munitions Worker Name Pinky Barcenas RN PCR Munitions Worker's Social Work Contact Name Bailey Magallanes BILINGUAL SALES ASSISTANT, BUMPER STRAIGHTENER Reaming Machine Operator For Plastic's Living Environment Lives With spouse Living Arrangements [...] Education And Care For Discharge? Phill Swift [phone] Can Support Person Meet The Care Needs Of The Patient? 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 Employment/Financial Concerns no Source Of Income salary/wages Financial Concerns none Insurance Medical Insurance Verified Yes Prescription Coverage Yes Pharmacy updated in IHIS Yes Initial Discharge Planning Home Care Services (TECHNICAL ACCOUNT MANAGER) No Home Therapies (TECHNICAL ACCOUNT MANAGER) None DME (TECHNICAL ACCOUNT MANAGER) None Medical Supplies (TECHNICAL ACCOUNT MANAGER) None Patient Goal for Discharge Return home with assistance from family and friends Anticipated discharge disposition Home Anticipated Services at Discharge Outpatient follow up Anticipated Changes Related to Illness none Current Discharge Risk high risk diagnoses (i.e., CHF, Stroke, DM, chronic pain, abdominal pain, nausea and vomiting) Transportation Available car Home Care Services (TECHNICAL ACCOUNT MANAGER) Additional Home Care Services (TECHNICAL ACCOUNT MANAGER) no Assessment/Concerns to be Addressed Concerns To [...] and for discharge planning. Medical team updated. [facility] 05-22-2022 Note Formatting of this n ote might be different from the original. 1512: Report called to Jevon EMERY on 12 [facility]. All questions answered. 1514: Patient discharged from [facility] PACU per protocol. Patient transported via gurney with side rails up x2 with HOB>30 degrees to room 1204 [facility] by Natalia EMERY and Dang NICK SETTER. Family called to patient's bedside. [facility] 05-22-2022 Note Formatting of this n ote might be different from the original. 1310: Patient arrives in [facility] PACU from OR via gurney with side rails up x2 with HOB >30 degrees, accompanied by Anesthesiologist: Vinicius Gupta DO; Chayo Benson MD Winder Operator: VIJAYA Gamboa; VIJAYA Lopez Environmental Aide Assisting: Richard Bradshaw MD Legal Process Specialist: Wali Art. Patient placed on monitors, VSS. Report received from anesthesia. Patient assessed, see assessment. 1427: PACU labs and abdominal xray for NG placement cleared by Miguel Betancourt at this time. [facility] 05-22-2022 Note Formatting of this n ote is different from the original. 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 JR drain placed in pelvis. SURGEON Surgeon(s) and Role: * Suman Baker MD, PhD - Primary ANESTHESIOLOGIST Anesthesiologist: Vinicius Gupta DO; Chayo Benson MD Winder Operator: VIJAYA Gamboa; VIJAYA Lopez Environmental Aide Assisting: Richard Bradshaw MD Legal Process Specialist: Wali Art SURGICAL STAFF Inspector Filters: Piedad Maki RN; Rima Medel RN Relief Inspector Filters: Suri Stockton RN Relief Scrub: Ghanshyam Townsend [...] Arnold MD May 22, 2022 1:06 PM [facility] Work Phone: 05-22-2022 Note Formatting of this n ote is different from the original. Zainab Swift ([id number]) PRE OPERATIVE DIAGNOSIS Primary malignant neuroendocrine tumor [...] Anesthesiologist: Vinicius Gupta DO; Chayo Benson MD Winder Operator: VIJAYA Gamboa; VIJAYA Lopez Environmental Aide Assisting: Richard Bradshaw MD Legal Process Specialist: Wali Art SURGICAL STAFF Inspector Filters: Piedad Maki RN; Rima Medel RN Relief Inspector Filters: Suri Stockton RN Relief Scrub: Ghanshyam Townsend [...] Hong MD May 22, 2022 1:04 PM [facility] Work Phone: 05-22-2022 Note Formatting of this n ote is different from the original. SURGEONS: Suman Baker MD, PhD ATTENUATOR SURGEON: Rodolfo Arnold MD PROCEDURE: - Exploratory [...] second timeout per standard procedure at the [facility]. We made a midline incision using [...] sarmiento stapler device. Next, we began the cisylv-ho-zbnugsm dissection to mobilize the colonic mesentery. We [...] filed. We then proceeded with creating a hpzf-zg-jscu functional end-to-end anastomosis between the distal ileum [...] participated for the entirety of the case. [facility] Work Phone: 05-22-2022 Nurse Surgical operation note 0815 Family notified of surgery start 1210 Family updated 1228 Handoff report sent to PACU charge nurse 1255 PACU given notice of arrival 1309 Patient extubated and transported to PACU with anesthesia at bedside and on oxygen inhalation Rima Medel RN [facility] 05-22-2022 Nurse Note 0815 Family notified of surgery start 1210 Family updated 1228 Handoff report sent to PACU charge nurse 1255 PACU given notice of arrival 1309 Patient extubated and transported to PACU with anesthesia at bedside and on oxygen inhalation Rima Medel RN documented in this encounter [facility] 05-22-2022 Note Formatting of this [...] Visit Frequency Sat Last Date Seen 05/22/[address] [facility] 05-22-2022 History and physical note Surgical Oncology [...] N/A; Surgeon: Suman Baker MD, PhD; Location: [facility] MAIN OR COLONOSCOPY DIAGNOSTIC 04/08/2022 APPENDECTOMY LAPAROSCOPIC 02/03/2022 [place], [place] Family History Family History Problem Relation [...] hours as instructed. 05/21/2022 04/23/22 Elsie Mason APRN-[facility] Review of Systems Denies the following: Arrhythmias, [...] to the patient's satisfaction. Liza Cisneros PA-C [facility] 05-22-2022 History and physical note Surgical Oncology [...] Surgeon: Suman Baker MD, PhD; [facility]STIC 04/08/2022 APPENDECTOMY LAPAROSCOPIC 02/03/2022 [place], [place] Family History Family History Problem Relation [...] day before surgery 05/21/2022 04/23/22 Elsie Mason APRN-BRIM ROUNDER FLUoxetine 40 MG capsule 40 mg, Oral, [...] hours as instructed. 05/21/2022 04/23/22 Elsie Mason APRN-BRIM ROUNDER Review of Systems Denies the following: Arrhythmias, [...] Cisneros PA-C documented in this encounter [facility] 05-21-2022 Hospital Discharge instructions Pinky Be RN - 05/21/2022 10:38 AM EDT Contacts: Suman Baker MD Office Number: [phone] Option 1 During office hours, Wednesday through Wednesday, 8:00 AM to 4:30 PM, call the office if you have any questions or concerns. After hours, weekends and holidays call the office number and you will be transferred to the After Hours Nurse Line. Call 911 for Emergencies. Your manager case management (PCRM) has arranged your appointments for follow [...] pharmacist before using any other medicine, including zlpk-zmh-ygujbbs medicines, vitamins, and herbal products. Avoid taking [...] and support, many resources are available. The siOPTICA Call to request information or check hours. [facility] Video Passports: or , [email or web address] [facility] Classes: Sourcebits, Integrative Care Monthly Classes The Art Loft for Life Program offers a series of [...] families and friends. For more information, contact [facility] at or visit our website at [email or web address] Resources in [facility] include the following: The [place] Cancer Society, [facility] Unit . The Wellness Community [facility] The Cancer Support [facility]: http://cancersupportohio.org/prog fami-oos-urxanykg/virtual-[facility] / National Resources: [place] Cancer Society (ACS), www.cancer.org 4-035-CGV-2345, [place]: 7-542-XHN-[place]. National Comprehensive Cancer Netowork (NCCN) 2-358-362-NCCN, www.nccn.org National Cancer [place] (NCI) 9-390-8-CANCER, www.nci.gov The following attachments cannot be sent through Care Everywhere.Lovenox or Heparin: Subcutaneous Injections ([facility]) (Eth[place]ian)documented in this encounter [facility] 04-29-2022 Note PROCEDURE: XR HIP RT 2 3V WO PELVIS, XR TIB_FIB RT 2V, XR FEMUR RT HISTORY: Pain in right leg , chronic COMPARISON: None. FINDINGS: BONES:No fracture, acute abnormality, or significant arthropathy. SOFT TISSUES:No visible soft tissue swelling. EFFUSION:None visible. OTHER: Negative. IMPRESSION: 1. Normal appearance of the right hip, femur, and tibia-fibula. Electronically authenticated by: CAROLYN WALSH Date: 2022-04-29 16:59 [facility] 04-29-2022 Note PROCEDURE: XR [...] authenticated by: CAROLYN WALSH Date: 2022-04-29 16:59 [facility] 04-29-2022 Note PROCEDURE: XR [...] authenticated by: CAROLYN WALSH Date: 2022-04-29 16:59 [facility] 03-19-2022 History of Present illness Narrative [...] appendectomy on 02/03/22 for acute appendicitis at [facility]. 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 She presents to [facility] Surgical Oncology clinic for surgical [...] History: Procedure Laterality Date APPENDECTOMY LAPAROSCOPIC 02/03/2022 [place], [place] No Known Allergies Current Outpatient Medications [...] in our surgical oncology clinic at [facility], [facility] and [facility]. As you know, Ms. Swift is [...] the future. Sincerely, Suman Baker MD, PhD customer relations coordinator Department of Surgery Division of Surgical Oncology [place] [phone] Office [phone] [place] [phone] Fax [email or web address] documented in this encounter [facility] 03-19-2022 Instructions Rhoda Lazo RN - 03/19/2022 3:00 PM EDT Pre-operative Information As a patient at the [facility], you may work with various departments and have help from many professionals. One of these is a surgical oncologist who works in the Division of Surgical Oncology. Surgical oncologists are surgeons who have completed advanced training to care for cancer patients. All of the surgical oncologists at the [facility] have completed specialized training and are board-certified. The surgeon who will be performing your surgery is Suman Baker M.D., customer relations coordinator. [address] [place] [address] Office phone: [phone] We are available to take calls Wednesday-Wednesday 8:00am-4:30pm. During non-business hours and holidays phone calls will be forwarded to a service covering our patients. Please communicate with our team through [facility] [employer] for non-urgent issues only. Office fax: [phone] Clinic Nurse Practitioner Carlos Gomes Millwright Instructor Sandra Kennedy Shellfish Harvester Iris Giraldo OUR TEAM OF EXPERTS [facility] is associated with [facility] and is an academic medical center. Dr. Skip Le is an attending physician, the supervisor roller shop of your care. Listed below are the members of his team: Surgical Oncology Fellow: a physician who completed residency and is obtaining further education. Resident(s): a physician who has finished summer internship and is receiving training in a specialized area (i.e. surgery) Die Maker Stamping(s): a physician who has completed medical school and is in the 1st year of training Nurse Practitioner (DIRECTOR OF IN SERVICE EDUCATION): A registered nurse with a master's or doctoral degree who is licensed to practice; Clinic: Carlos Gomes APRNTASH [facility]: Nayeli Astudillo, [facility], Suman Jeffries, [facility], Kika Colón, [facility], Monica Jackson, [facility] Patient Care Clothing Designer (PCRM): A registered nurse who coordinates care for patients returning home from the hospital and assists in coordinating home care; Clinic: Alissa Hunt, [facility], Hospital: Felicitas Campos, [facility], Yoselyn Lange , [facility], Antonio Jeffrey, [facility]. MEDICAL RECORDS The Release of Information ([facility]) area is staffed from 8:00 a.m. to 7:00 p.m. and is available for walk in requests from 8:00 a.m. to 4:30 p.m. [facility] is responsible for answering requests for copies of medical records from various requestors such as insurance companies, hospitals and patients. Please note it can take up to 2 weeks to complete your request. [phone] DISABILITY FORMS This category includes any form [...] a private room? All rooms at the [facility] are private. Do you have a clinical social worker available? A clinical social worker is assigned to our team. How can I help my family plan for my discharge? From the moment a patient is admitted, the PCRMs begin to plan for the patient s discharge. Plan to leave at 11am on the day of discharge. Discharge instructions will be given to the patient. The hospital nurse will discuss these with you. Does the [facility] precertify my surgery? Yes. The precertification department at [facility] will notify your insurance carrier. Who should I contact if I anticipate difficulty paying my bill? We want to make sure all patients have access to the quality healthcare services of [facility], and we are committed to working with you and your family to obtain appropriate financial assistance. You may contact the Office of Financial Counseling [phone] weekdays between 8am and 5pm to help determine whether you might qualify for an assistance program. Do I need to bring clothes from home to wear at the hospital? The [facility] will provide you with personal items. You may wish to bring a robe or slippers. Does the [facility] have a designated area for smoking? The [facility] does not permit smoking inside or outside the hospitals including parking areas and sidewalks. If you would like to quit, you can contact a tobacco client success specialist at [phone] or the [place] Tobacco QUIT LINE at [214] 032-9948. Where can I find information about visitation, [...] someone after business hours? The office number, [phone] or [phone], is connected to an answering service after 4:30pm each weekday and on weekends, available 08/02. What number should I call if I have billing questions? Please call [facility] s Central Business Office at [phone]. Please Note: In regards to [facility]cf pain control. You may need narcotic pain [...] call by 4 p.m., please call the [facility] Ambulatory Surgery Unit at . Follow [...] the hospital. Do not wear makeup, nail divehi or hair pins to the hospital. Please [...] a living will or durable power of construction administrator, please bring a copy of the documents with you. IF YOU USE CPAP BRING YOUR MACHINE WITH YOU TO THE HOSPITAL ALONG WITH THE PRESCRIPTION FOR CPAP PRESSURE LEVELS If you develop any illness, such as a cold, sore throat, cough, or fever, before your surgery, call the [facility] Surgery Unit at and our [...] pulp Popsicles Ice Soft drinks Gatorade (Lemon [place] preferred) Clear broth or bouillon Jello Coffee [...] not red, orange, or purple in color. Lemon-pamunkey is preferred. You may need to pour [...] program. You can also get help through: [facility], National Quit Line, [place] Lung Association, [place] Cancer Society, Smokefree.gov website Stop Alcohol Use [...] helpful:Alcoholics Anonymous (AA) http://www.aa.org/ Rethinking Drinking https://www.rethinkingdrinking.ni centra health.nih.gov/ National [place] of Alcohol Abuse and Alcoholism https://niaaa.nih.gov/ Sasha Head 592-030-2512 -Inpatient, partial hospitalization and outpatient services for [...] Patient Controlled Analgesia (also known as a NICK SETTER) A NICK SETTER is a pain pump that could be [...] AM of surgery documented in this encounter [facility] 02-19-2022 Miscellaneous Notes Addended by: KARINE GALVAN on: 02/19/2022 04:15 PM Modules accepted: Orders INTESTINAL REFERRAL Let the person providing referral info know that you must speak directly to the patient. Our team cannot proceed with intake without communicating directly with the patient. 1) What is your (the patient's) direct phone contact number?- [phone] 2) What is your referring diagnosis? Appendix [...] resources available to cover travel expenses to [facility]? Yes We are currently flexible in offering initial virtual consultations for both surgery and transplant ONLY to patients living in [place], [place], and [place] through May 18, 2022. This may expand to other states depending on where the surgeon who conducts your initial visit is licensed (Dr. Wyatt is licensed in [place], [place], and [place]). If you are living in another state and desire an initial virtual consultation, you may choose to purchase a [place]. (Surgical or transplant evaluations are highly individualized and may be conducted either through your local providers or at the [facility]. The plan for your evaluation will [...] for any pre-surgical testing done at the [facility], and for any post-surgical stay in [place] depending on your post-surgical course. 8) Would you be interested in participating in [facility] Virtual Visits for the psychosocial screening? - Yes If the patient says no, proceed as normal. If yes, please e-mail the patient and copy the clinical social worker on it. She will need them to [...] have been over the past 1 year? [facility] (Submit ALL template in EDigitalPost Interactive, AND for transplant patients submit MOST RECENT [...] On medication - Psychiatrist (Submit request in EDigitalPost Interactive) 15) Do you have a Power of Imagery Intelligence (POA)? Do you have a Living Will?- No If so, please bring a copy of this to your appointment. 16) For females: When and where was your last mammogram (40 and up) and pap smear (16 and up)? - Needs to be within last year.- PAP- Never had & Mammo- No (Submit request in EDigitalPost Interactive) 17) For all patients: When and where was your last dental visit? - Needs to be within last 6 months.- about 6 months ago (Submit request in EDigitalPost Interactive) 18) If transplant- Ask patient to obtain their immunization records and have them sent to us via mail/fax.- COVID- Yes The patient has been entered into Edit, chart is created, and request to [employer] for medical records has been generated. Financial clearance has been submitted for rehab/transplant (if on TPN or has dysmotility, submit for both rehab & transplant). Chart will be given to accounting coordinator. Referral received from Dr. Rodney Olivas from [facility] ([phone]) to Dr. Davies. 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 Will call patient to start intake. documented in this encounter [facility] 12-22-2021 Evaluation note Encounter Date Diagnosis [...] Follow up with primary care provider or property site manager if no improvement of symptoms. 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 [facility] Diagnosis Primary malignant neuroendocrine tumor of appendix Post-operative pain Other acute postoperative pain Primary malignant neuroendocrine tumor of appendix [facility] Diagnosis Primary malignant neuroendocrine tumor of appendix- Primary [facility] Diagnosis Primary malignant neuroendocrine tumor of appendix- Primary [facility] Diagnosis Primary malignant neuroendocrine tumor of appendix [facility] Diagnosis Primary malignant neuroendocrine tumor of appendix [facility] Diagnosis Carcinoid syndrome- Primary SOB (shortness of breath) Shortness of breath Tachycardia Tachycardia, unspecified Antinuclear antibody (HUNTER) titer greater than 1:80 Primary malignant neuroendocrine tumor of appendix [facility] Diagnosis Primary malignant neuroendocrine tumor of appendix [facility] Diagnosis Carcinoid syndrome SOB (shortness of breath) Shortness of breath Tachycardia Tachycardia, unspecified Primary malignant neuroendocrine tumor of appendix [facility] Diagnosis Fibromyalgia muscle pain- Primary Mylagia and myositis, unspecified [facility] Diagnosis Primary malignant neuroendocrine tumor of appendix- Primary [facility] Diagnosis Primary malignant neuroendocrine tumor of appendix [facility] Diagnosis 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 Neoplasm of unspecified nature of digestive system documented [facility] Diagnosis Third trimester state, incidental documented in this [facility] - Reported* Type Description Date Medical History chronic depression Retail Info Other Reason for referral (narrative)* (Routine) Specialty Diagnoses / Procedures Referred By Contac t Referred To Contact ISRRAEL Crow [address] [place] [phone] Referral ID Status Reason Start Date Expiration Date Visits Re quested Visits Authorized * (Routine) - New Request Specialty Diagnoses / Procedures Referred By Contac t Referred To Contact Procedures PLATELET MONITORING PER PROTOCOL Suman Baker MD, PhD [address] [place] [address] Referral ID Status Reason Start Date Expiration Date V isits Requested Visits Authorized [id number] New Request 05/22/2022 06/16/2023 1 1 * (Routine) - New Request Specialty Diagnoses / Procedures Referred By Contac t Referred To Contact Procedures DVT/VTE RISK ASSESSMENT Suman Baker MD, PhD [address] [place] [address] Referral ID Status Reason Start Date Expiration Date V isits Requested Visits Authorized [id number] New Request 05/22/2022 06/16/2023 1 1 * (Routine) - New Request Specialty Diagnoses / Procedures Referred By Contac t Referred To Contact Procedures NO MECHANICAL DVT PROPHYLAXIS Liza Cisneros PA-C [address] [place] [address] Referral ID Status Reason Start Date Expiration Date V isits Requested Visits Authorized [id number] New Request 05/22/2022 06/16/2023 1 1 [facility] for referral (narrative)* Consultation (Routine) - New Request Specialty Diagnoses / Procedures Referred By Contac t Referred To Contact Oncology Diagnoses Primary malignant neuroendocrine tumor of appendix Carlos Gomes APRN-TASH [address] [place] [address] Andreas Ortega MD, MPH [address] [facility] [address] [place] [address] Referral ID Status Reason Start Date Expiration Date V isits Requested Visits Authorized [id number] New Request 06/09/2022 07/04/2023 1 1 * MRI/CAT Scan (Routine) - New Request Specialty Diagnoses / Procedures Referred By Contac t Referred To Contact Diagnoses Primary malignant neuroendocrine tumor of appendix Procedures CT ABDOMEN/PELVIS WITH CONTRAST CHG CT SCAN,ABDOMENT AND PELVIS,W CONTRAST Carlos Gomes APRN-CNP [address] [place] [address] Referral ID Status Reason Start Date Expiration Date V isits Requested Visits Authorized [id number] New Request 06/09/2022 07/04/2023 1 1 [facility] for referral (narrative)* Consultation (Routine) - New Request Specialty Diagnoses / Procedures Referred By Katharine t Referred To Contact Genetics Diagnoses Primary malignant neuroendocrine tumor of appendix Yudelka Moralez APRN-BRIM ROUNDER [address] [place] [phone] Erin Stoner, [facility] [address] [place] [phone] Referral ID Status Reason Start Date Expiration Date V isits Requested Visits Authorized [id number] New Request 07/08/2022 08/02/2023 1 1 * MRI/CAT Scan (Routine) - New Request Specialty Diagnoses / Procedures Referred By Katharine morales Referred To Contact Diagnoses Primary malignant neuroendocrine tumor of appendix Procedures CT ABDOMEN/PELVIS WITH AND WITHOUT CONTRAST CHG CT SCAN,ABDOMENT AND PELVIS,Andreas Ellis MD, MPH [address] [address] Referral ID Status Reason Start Date Expiration Date V isits Requested Visits Authorized [id number] New Request 07/08/2022 08/02/2023 1 1 * Radiology (Routine) - New Request Specialty Diagnoses / Procedures Referred By Katharine morales Referred To Contact Diagnoses Primary malignant neuroendocrine tumor of appendix Procedures NUC PET NEUROENDOCRINE CHG NUC THERAPY HYPERTHYROID SUBSEQUENT Yudelka Moralez CASE PICKER-BRIM ROUNDER [address] [place] [address] Referral ID Status Reason Start Date Expiration Date V isits Requested Visits Authorized [id number] New Request 07/08/2022 08/02/2023 1 1 Electronically signed by Yudelka Moralez APRNROBERT [facility] at 07/08/2022 9:26 AM EST [facility] N[facility] Auth/Cert Specialty Diagnoses / Procedures Referred By Katharine t Referred To Contact Diagnoses 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 Summary Purpose Family History No Family History Records FoundNo Family History Records FoundNo Family History Records FoundNo Family History Records FoundNo Family History Records Found Advance Directives No Advanced Directives Records FoundNo Advanced Directives Records FoundNo Advanced Directives Records FoundNo Advanced Directives Records FoundNo Advanced Directives Records Found Reason for Referral Specialty Diagnoses / Procedures Referred By Contmarcia t Referred To Contact Echocardiography Diagnoses Carcinoid syndrome SOB (shortness of breath) Tachycardia Procedures ECHOCARDIOGRAM TX ECHO HEART XTHORACIC,COMPLETE W DOPPLER Yudelka Moralez, CASE PICKER-BRIM ROUNDER [address] [place] [address] Echocardiography [facility] [address] [place] [address] Referral ID Status Reason Start Date Expiration Date V isits Requested Visits Authorized [id number] Auth Not Needed 10/07/2022 11/01/2023 1 1 Specialty Diagnoses / Procedures Referred By Contac t Referred To Contact Diagnoses Primary malignant neuroendocrine tumor of appendix Procedures CT NECK WITH CONTRAST TX CT NECK TISSUE CONTRAST Yudelka Moralez, CASE PICKER-BRIM ROUNDER [address] [place] [address] Referral ID Status Reason Start Date Expiration Date V isits Requested Visits Authorized [id number] New Request 10/07/2022 11/01/2023 1 1 Specialty Diagnoses / Procedures Referred By Contac t Referred To Contact Diagnoses Carcinoid syndrome SOB (shortness of breath) Tachycardia Primary malignant neuroendocrine tumor of appendix Procedures CT CHEST WITH CONTRAST CHG DIAGNOSTIC COMPUTED TOMOGRAPHY THORAX W/CONTRAST Yudelka Moralez, [facility] [address] [place] [phone] Referral ID Status Reason Start Date Expiration Date V isits Requested Visits Authorized [id number] New Request 10/07/2022 11/01/2023 1 1 Specialty Diagnoses / Procedures Referred By Contac t Referred To Contact Oncology Diagnoses Carcinoid syndrome SOB (shortness of breath) Tachycardia Yudelka Moralez [facility] [address] [place] [phone] Referral ID Status Reason Start Date Expiration Date V isits Requested Visits Authorized [id number] New Request 10/07/2022 11/01/2023 1 1 Specialty Diagnoses / Procedures Referred By Katharine t Referred To Contact Rheumatology Diagnoses Antinuclear antibody (HUNTER) titer greater than 1:80 Yudelka Moralez [facility] [address] [place] [phone] Referral ID Status Reason Start Date Expiration Date V isits Requested Visits Authorized [id number] New Request 10/07/2022 11/01/2023 1 1 Specialty Diagnoses / Procedures Referred By Lindaac t Referred To Contact Diagnoses Primary malignant neuroendocrine tumor of appendix Procedures CT ABDOMEN/PELVIS WITH CONTRAST CHG CT SCAN,ABDOMENT AND PELVIS,W CONTRAST Carlos Gomes, [facility] [address] [facility] [address] [place] [address] Referral ID Status Reason Start Date Expiration Date Visits Re quested Visits Authorized [id number] Closed 03/19/2022 04/13/2023 1 1 Specialty Diagnoses / Procedures Referred By Lindaac t Referred To Contact TRANSPLANT Diagnoses Cancer of appendix (HCC) Procedures CONSULT TO TRANSPLANT CENTER EXPLORATORY LAPAROTOMY CELIOTOMY W/WO BIOPSY SPX Vernon Davies MD [address] [place] [address] Tr[facility] Ctr Main [address] [address] Referral ID Status Reason Start Date Expiration Date Visits Requested Visits Authorized [id number] Pending Review Financial Clearance Required - OON Payor 02/19/2022 02/19/2023 99 99 Additional Source Comments INFORMATION SOURCE (unrecogn ized section and content) DATE CREATED AUTHOR 02/19/2021 Bee Severino [facility] DATE CREATED AUTHOR AUTHOR'S ORGANIZ ATION 12/25/2022 [facility] DATE CREATED AUTHOR AUTHOR'S ORGANIZ ATION 04/24/2023 [facility] DATE CREATED AUTHOR AUTHOR'S ORGANIZ ATION 09/30/2023 [facility] DATE CREATED AUTHOR AUTHOR'S ORGANIZ ATION 10/05/2023 [facility] d[facility] Specialists EPIC REASON FOR VISIT (unrecogniz ed section and content) Reason Comments Referral Request Specialty Diagnoses / Procedures Referred By Katharine t Referred To Contact Diagnoses Primary malignant neuroendocrine tumor of appendix Procedures CT ABDOMEN/PELVIS WITH CONTRAST CHG CT SCAN,ABDOMENT AND PELVIS,W CONTRAST Carlos Gomes, CASE PICKER-BRIM ROUNDER [address] [place] [address] Referral ID Status Reason Start Date Expiration Date Visits Re quested Visits Authorized [id number] Closed 03/19/2022 04/13/2023 1 1 Reason Comments New Patient Specialty Diagnoses / Procedures Referred By Katharine t Referred To Contact Surgical Oncology Diagnoses New patient - Appendix NET - External: Dr. Timmy Hall - Preferred: Oanh Procedures NEW ISRRAEL SURGERY Self, Self Suman Baker MD, PhD [address] [place] [address] Referral ID Status Reason Start Date Expiration Date Visits Re quested Visits Authorized [id number] Closed 03/19/2022 04/13/2023 1 1 Reason Comments [...] Diagnoses Primary malignant neuroendocrine tumor of appendix EliseoCarlos Kelly, CASE PICKER-BRIM ROUNDER [address] [place] [address] Andreas Ortega MD, MPH [address] [phone] Referral ID Status Reason Start Date Expiration Date V isits Requested Visits Authorized [id number] New Request 06/09/2022 07/04/2023 1 1 Specialty Diagnoses / Procedures Referred By Contac t Referred To Contact Diagnoses Primary malignant neuroendocrine tumor of appendix Procedures NUC PET NEUROENDOCRINE CHG NUC THERAPY HYPERTHYROID SUBSEQUENT MoralezYudelka, CASE PICKER-BRIM ROUNDER [address] [place] [address] Referral ID Status Reason Start Date Expiration Date Visits Re quested Visits Authorized [id number] Closed 07/08/2022 08/02/2023 1 1 Specialty Diagnoses / Procedures Referred By Contac t Referred To Contact Diagnoses Primary malignant neuroendocrine tumor of appendix Procedures CT ABDOMEN/PELVIS WITH AND WITHOUT CONTRAST CHG CT SCAN,ABDOMENT AND PELVIS,COMBO Andreas Ortega MD, MPH [address] [phone] Referral ID Status Reason Start Date Expiration Date Visits Re quested Visits Authorized [id number] Closed 07/08/2022 08/02/2023 1 1 Reason Comments [...] of appendix Procedures CT NECK WITH CONTRAST TX CT NECK TISSUE CONTRAST Yudelka Moralez, CASE PICKER-BRIM ROUNDER [address] [place], [place] Referral ID Status Reason Start Date Expiration Date Visits Re quested Visits Authorized [id number] Closed 10/07/2022 11/01/2023 1 1 Specialty Diagnoses / Procedures Referred By Contac t Referred To Contact Echocardiography Diagnoses Carcinoid syndrome SOB (shortness of breath) Tachycardia Procedures ECHOCARDIOGRAM TX ECHO HEART XTHORACIC,COMPLETE W DOPPLER Yudelka Moralez CASE PICKER-BRIM ROUNDER [address] [place], [place] Echocardiography [facility] [address] [place] [address] Referral ID Status Reason Start Date Expiration Date Visits Re quested Visits Authorized [id number] Closed 10/07/2022 11/01/2023 1 1 Specialty Diagnoses / Procedures Referred By Contac t Referred To Contact Diagnoses Carcinoid syndrome SOB (shortness of breath) Tachycardia Primary malignant neuroendocrine tumor of appendix Procedures CT CHEST WITH CONTRAST CHG DIAGNOSTIC COMPUTED TOMOGRAPHY THORAX W/CONTRAST Yudelka Moralez, CASE PICKER-BRIM ROUNDER [address] [place], [place] Referral ID Status Reason Start Date Expiration Date Visits Re quested Visits Authorized [id number] Closed 10/07/2022 11/01/2023 1 1 Reason Comments New Patient Referred by Dorothy Moralez NP for JR. 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 Joint achy/flu symptoms, tachcardia, + HUNTER. 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 Procedures MRI ABDOMEN/PELVIS WITHOUT CONTRAST TX MRI, ABDOMEN (MRI) TX MRI, PELVIS, W/O CONTRAST Yudelka Moralez, CASE PICKER-BRIM ROUNDER [address] [place] [address] Referral ID Status Reason Start Date Expiration Date Visits Re quested Visits Authorized [id number] Closed 03/09/2023 04/02/2024 1 1 Reason Comments Routine Visit Source Comments (unrecognize d section and content) In the event this informatio n is protected by the Federal Confidentiality of Alcohol and Drug Abuse Patient Records regulations: The Federal rules restrict any use of the information to criminally investigate or prosecute any alcohol or drug abuse patient.[facility] Care Teams (unrecognized sec tion and content) Drafter (Cad) Electrical Relationship Specialty Start Date End Date Erin Sams RN PCP - General 03/19/22 Rodney Olivas MD [facility] [place] [address] Hematology 03/19/22 Drafter (Cad) Electrical Relationship Specialty Start Date End Date Erin Sams RN PCP - General 03/19/22 Rodney Olivas MD [address] [place] [address] Hematology 03/19/22 Drafter (Cad) Electrical Relationship Specialty Start Date End Date Erin Sams RN PCP - General 03/19/22 Rodney Olivas MD [address] [place] [address] Hematology 03/19/22 Drafter (Cad) Electrical Relationship Specialty Start Date End Date Erin Sams RN PCP - General 03/19/22 Rodney Olivas MD [address] [place] [phone] Hematology 03/19/22 Drafter (Cad) Electrical Relationship Specialty Start Date End Date Erin Sams RN PCP - General 03/19/22 Rodney Olivas MD [address] [place] [address] Hematology 03/19/22 Suman Baker MD, PhD [address] [place] [phone] Surgeon Surgical Oncology 07/08/22 Drafter (Cad) Electrical Relationship Specialty Start Date End Date Erin Sams RN PCP - General 03/19/22 Rodney Olivas MD [address] [place] [address] Hematology 03/19/22 Suman Baker MD, PhD [address] [place] [phone] Surgeon Surgical Oncology 07/08/22 Drafter (Cad) Electrical Relationship Specialty Start Date End Date Erin Sams RN PCP - General 03/19/22 Rodney Olivas MD [address] [place] [address] Hematology 03/19/22 Suman Baker MD, PhD [address] [place] [phone] Surgeon Surgical Oncology 07/08/22 Drafter (Cad) Electrical Relationship Specialty Start Date End Date Erin Sams RN PCP - General 03/19/22 Rodney Olivas MD [address] [place] [address] Hematology 03/19/22 Suman Baker MD, PhD [address] [facility] [place] [address] Surgeon Surgical Oncology 07/08/22 Cheikh Coelho MD [address] [place] [address] Popped Corn Oven Attendant Cardiovascular Disease 10/07/22 Drafter (Cad) Electrical Relationship Specialty Start Date End Date Erin Sams RN PCP - General 03/19/22 Rodney Olivas MD [address] [place] [address] Hematology 03/19/22 Suman Baker MD, PhD [address] [facility] [place] [phone] Surgeon Surgical Oncology 07/08/22 Cheikh Coelho MD [address] [place] [address] Popped Corn Oven Attendant Cardiovascular Disease 10/07/22 Drafter (Cad) Electrical Relationship Specialty Start Date End Date Erin Sams RN PCP - General 03/19/22 Rodney Olivas MD [address] [place] [address] Hematology 03/19/22 Suman Baker MD, PhD [address] [facility] [place] [address] Surgeon Surgical Oncology 07/08/22 Cheikh Coelho MD [address] [place] [address] Popped Corn Oven Attendant Cardiovascular Disease 10/07/22 Drafter (Cad) Electrical Relationship Specialty Start Date End Date Erin Sams RN PCP - General 03/19/22 Rodney Olivas MD [address] [place] [address] Hematology 03/19/22 Suman Baker MD, PhD [address] [place] [address] Surgeon Surgical Oncology 07/08/22 Cheikh Coelho MD [address] [place] [address] Popped Corn Oven Attendant Cardiovascular Disease 10/07/22 Drafter (Cad) Electrical Relationship Specialty Start Date End Date Erin Sams RN PCP - General 03/19/22 Rodney Olivas MD [address] [place] [address] Hematology 03/19/22 Suman Baker MD, PhD [address] [place] [address] Surgeon Surgical Oncology 07/08/22 Cheikh Coelho MD [address] [place] [address] Popped Corn Oven Attendant Cardiovascular Disease 10/07/22 Drafter (Cad) Electrical Relationship Specialty Start Date End Date Erin Sams CNP [address] [place] [address] PCP - General 03/10/23 Rodney Olivas MD [address] [place] [address] Hematology 03/19/22 Suman Baker MD, PhD [address] [place] [address] Surgeon Surgical Oncology 07/08/22 Cheikh Coelho MD [address] [place] [address] Popped Corn Oven Attendant Cardiovascular Disease 10/07/22 Drafter (Cad) Electrical Relationship Specialty Start Date End Date Erin SamsTASH [address] [place] [address] PCP - General 03/10/23 Rodney Olivas MD [address] [place] [address] Hematology 03/19/22 Suman Baker MD, PhD [address] [place] [address] Surgeon Surgical Oncology 07/08/22 Cheikh Coelho MD [address] [place] [address] Popped Corn Oven Attendant Cardiovascular Disease 10/07/22 Scheduled Active and Recently [...] Pagan, RUPERT) 0613 (Given - Provider: Craig Pagan, RUPERT)1400 [...] First dose on 05/25/22 at 2100, Until Discontinued, Administer intact tablet [...] Verify - Provider: Yadira Grier RN)0659 (Epidural Dunning Volume/Shift Total - Provider: Yadira Grier RN - Comment: shift total: 175 ml remaining)1105 (Rate/Dose Verify - Provider: Alena Wade RN)1122 (Rate/Dose Verify - Provider: Alena Wade RN)1459 (Rate/Dose Verify - Provider: Alena Wade RN)1555 (Rate/Dose Verify - Provider: Alena Wade RN)1848 (Rate/Dose Verify - Provider: Alena Wade RN)1849 (Rate/Dose Verify - Provider: Alena Wade RN)1910 (Epidural Dunning Volume/Shift Total - Provider: Alena Wade RN - Comment: 100mL left in cartridge) 0100 (Epidural Dunning Volume/Shift Total - Provider: Craig Pagan RN [...] Wade, RN)1555 (Rate/Dose Verify - Provider: Alena Wade RN)1846 (Canceled Entry - Provider: Alena Wade RN)1847 (Rate/Dose Change - Provider: Alena Wade RN)1848 (Rate/Dose Verify - Provider: Alena Wade RN)1849 (Rate/Dose Verify - Provider: Alena Wade RN) 0046 (Rate/Dose Verify - Provider: Craig Pgaan, RUPERT)0048 (Rate/Dose Verify - Provider: Craig Pagan, [...] RN)1731 (See Alternative - Provider: Tania Louis RN)213 (See Alternative - Provider: Craig Pagan, RUPERT) 0425 (See Alternative - Provider: Craig Pagan RN)0854 (See Alternative - Provider: Tania Louis RN) oxyCODONE HCl (ROXICODONE) tablet 10 mg(Linked Group 3) 10 mg, Oral, EVERY 4 HOURS NEEDED, Starting on Eliana 05/28/22 at 1239, Until Wed05/29/22 at 1402, Severe Pain 1302 (Given - Provider: Yvrose Chamberlain RN)1731 (Given - Provider: Tania Louis RN)2133 (Given [...] Wade RN)0809 (Rate/Dose Verify - Provider: Alena Wade, RUPERT)1122 (Rate/Dose Verify - Provider: Alena Wade, RN)1225 (Paused - Provider: Alena Wade, RN)1239 (Restarted - Provider: Alena Wade, RUPERT)1312 (Paused - Provider: Alena Wade RN)1314 (Restarted [...] Starting on Eliana 05/28/22 at 1239, Until 05/29/22 at 1402, Moderate Pain Or oxyCODONE HCl [...] BE BASED ON THE PRIMARY CLINICAL RECORDS. [facility]. provides no warranty or guarantee of the accuracy or completeness of information in this document.
== END 2023-10-15 15:57 | disposition home or self-care (01) ==
LOC: RAD 15:58
PROVIDERS: PCP Nurse Practitioner Family; Visit Provider Nurse Practitioner Family
DX: M54.30 Sciatica, unspecified side (principal)
CPT/HCPCS: 72100

== ENCOUNTER 2023-11-10 07:30 | Outpatient (RCR) | payer OTHER, SELFPAY ==
[2023-11-10 11:00] VITALS: BP 118/83; PULSE 80; TEMP 36.6; O2SAT 96
[2023-11-10] MEDS: OCTREOTIDE ACETATE IM (11:25)
--- NOTE | 2023-11-10 11:37 | PC.NURSE ---
1100: Pt. to [facility] amb. Seated in chair. VSS. Updated home meds. Denies questions or concerns. 1125: Medicated with Octreotide 20mg IM to left gluteus monica. Trace bleeding to site, bandaid applied. Pt. tolerated wtih min. c/o. 1132: Pt. without s&s of adverse reaction. No new bleeding to site. D/c'd amb. to home.
== END 2023-11-16 23:59 | disposition home or self-care (01) ==
LOC: INF 07:30
PROVIDERS: PCP Nurse Practitioner Family
DX: E34.0 Carcinoid syndrome (principal); C71.8 Malignant neoplasm of overlapping sites of brain
CPT/HCPCS: 96372; J2353

== ENCOUNTER 2023-11-11 15:37 | Outpatient (OUT) | payer OTHER, SELFPAY ==
[2023-11-11 16:28] LABS: Free T3 2.47 pg/mL (2.18-3.98); Thyroid Stimulating Hormone 3.169 uIU/mL (0.358-3.740)
[2023-11-11 17:22] LABS: Free T4 0.75 ng/dL (0.76-1.46)
== END 2023-11-11 15:38 | disposition home or self-care (01) ==
LOC: LAB 15:38
PROVIDERS: PCP Nurse Practitioner Family; Visit Provider Physician Assistant
DX: E04.9 Nontoxic goiter, unspecified (principal)
CPT/HCPCS: 36415; 84439; 84443; 84481

== ENCOUNTER 2023-11-17 16:54 | Outpatient (OUT) | payer OTHER, SELFPAY ==
--- OUTSIDE RECORDS SUMMARY | 2023-11-17 17:06 | XMS_ITS | CCD ---
Author Organization [facility] Care Team Providers Care [employer] Manager Name Role Phone Ava Lundberg Unavailable Unavailable Primary Care Provider Unavailemanuel Sams RN, Erin Primary Care Provider Unavaildanielle Olivas MD, Rodney Unavailable Latrell EMERY, Erin Primary Care Provider Unavaildanielle Olivas MD, Rodney Unavailable Oanh DUPONT, PhD, [facility] Unavailable Cheikh Coelho MD Unavailable ERIN SAMS Primary Care Unavailable ISABEL ., DR TIMMY Sibley Admitting Unavaila ble ISABEL ., DR TIMMY Sibley Consulting Unavaila ora HALL ., DR TIMMY Sibley Attending Unavaila ble LATRELL, ERIN Primary Care Unavailable ERIN SAMS Consulting [...] Consulting Unavailable MISC, DR JACOBO Attending Unavailable ERIN SAMS Consulting Unavailable ERIN SAMS Attending Unavailable LATRELL, [...] Unavailable CHAY ., DR CARMONA Consulting Unavailable AGUBOSIMJOSÉ LUIS Consulting Unavailable MISC, DR JACOBO Admitting Unavailable LATRELL, ERIN Primary Care Unavailable MISC, DR JACOBO Consulting Unavailable MISC, DR JACOBO Attending Unavailable LATRELL, ERIN Consulting Unavailable LATRELL, ERIN Attending Unavailable LATRELL, ERIN Primary Care Unavailable LATRELL, ERIN Admitting Unavailable Rodney Olivas MD Unavailable Oanh DUPONT, PhD, Suman C Unavailable Cheikh Coelho MD Unavailable Erin aSms CNP S Primary Care Provider Unavailable Primary Care Provider UnavailRon Burciaga Attending Unavailable Ron Ruano Admitting Unavailable Oanh DUPONT, PhD, Suman C Unavailable Jordan UDPONT, MPH, Andreas Unavailable Ron Ruano DO Unavailable LATRELL, ERIN Primary Care Unavailable CARLOS LYMAN Referring Unavailable SUMAN BAKER Attending Unavailable JORDAN, ANDREAS Referring Unavailable LATRELL, ERIN Primary Care Unavailable SUMAN BAKER Attending Unavailable SELF, SELF Referring Unavailable LATRELL, ERIN Primary Care Unavailable SUMAN BAKER Attending Unavailable JORDAN, ANDREAS Attending Unavailable JORDAN, ANDREAS Referring Unavailable LATRELL, ERIN Primary Care Unavailable JODRAN, ANDREAS Referring Unavailable LATRELL, ERIN S Primary Care Unavailable FARSHAD VIGIL Attending Unavailable SUMAN BAKER Referring Unavailable LATRELL, ERIN S Primary Care Unavailable SUMAN BAKER Attending Unavailable SELF, SELF Referring Unavailable LATRELL, ERIN S Primary Care Unavailable SUMAN BAKER Attending Unavailable JORDAN, ANDREAS Referring Unavailable JORDAN, ANDREAS Attending Unavailable LATRELL, ERIN S Primary Care Unavailable JORDAN, ANDREAS Referring Unavailable JORDAN, ANDREAS Attending Unavailable LATRELL, ERIN S Primary Care Unavailable JORDAN, ANDREAS Referring Unavailable JORDAN, ANDREAS Attending Unavailable LATRELL, ERIN S Primary Care Unavailable LATRELL, ERIN Primary Care Unavailable SELF, SELF Referring Unavailable YUDELKA MORALEZ Attending Unavailable LATRELL, ERIN S Primary Care Unavailable SELF, SELF Referring Unavailable LATRELL, ERIN S Primary Care Unavailable ALDEN, RON Attending Unavailable SERENE, LIZBET Attending Unavailable ALDEN, RON Attending Unavailable ALDEN, RON Attending Unavailable ALDEN, RON Attending Unavailable ALDEN, RON Attending Unavailable ALDEN, RON Attending Unavailable SERENE, LIZBET Attending Unavailable SERENE, LIZBET Attending Unavailable Allergies Allergy Classification Reported Allergen(s) Allergy Type Date of Onset Reaction(s) Facility (11 sources) gabapentin Drug Allergy 10-07-2022 Nausea Only, Diarrhea [facility] Medications Current Medications Medication Drug Class(es) Dates Sig (Normalized) Sig (Original) amylase 942769 unt / lipase 95008 unt / protease 332003 unt delayed release oral capsule (8 sources) Start: 09-10-2022 Pancrelipase, Guv-Vsgd-Dmfn, (Creon) 28726-784715 units Cap DR Particles Indications: Exocrine pancreatic [...] 40 mg FLUoxetine 20 mg oral capsule (18 sources) Serotonin Reuptake Inhibitor Start: 08-17-2023 End: [...] PROzac Active lamoTRIgine 100 mg oral tablet (9 sources) Mood Stabilizer, Anti-epileptic Agent lamoTRIgine 100 MG tablet daily. Active take 2 tablets by mouth once [...] days Dec, Active octreotide 20 mg injection (9 sources) Somatostatin Analog Start: 024 Octreotide acetate (SandoSTATIN [place]) 20 MG Kit injection Inject 20 mg intramuscularly every 28 days. 1 kit 11 10/18/2023 Active Start: 09-03-2022 Octreotide chalo tierney 20 MG Kit injection Indications: Carcinoid syndrome , Primary malignant neuroendocrine tumor of appendix Inject 20 mg intramuscularly every 28 days. Diagnosis code: E34.0 1 kit 11 09/03/2022 Active omeprazole 20 mg delayed release oral capsule (17 sources) Proton Pump Inhibitor Start: 04-07-2023 End: 04-06-2024 take 1 capsule by mouth before mealtime [...] (2 sources) MV-Min-Fe Fum-FA-DHA ( 1 PO) Vit-DSS-Fe Cbn-FA ( AD PO) (1 source) Vit-DSS-Fe Cbn-FA ( AD PO) Take by mouth. Active Probiotic Product (PROBIOTIC DAILY PO) (12 [...] 6 hours as needed for Mild Pain. Active 500 ml albumin human, [facility] 50 mg/ml injection (1 source) Human Serum [...] for Mild Pain. 0 Active iodixanol (VISIPAQUE) injection 320 mg/mL for [facility] (1 source) Start: 03-31-2022 End: 03-31-2022 iodixanol (VISIPAQUE) injection 320 mg/mL for [facility] IR Iohexol (OMNIPAQUE) 300 MG/ML 50 mL in Water liquid (free water) 950 mL (1 source) Start: 11-06-2023 End: 11-06-2023 take 1 dose by mouth once 15,000 mg, Oral, ONCE, 1 dose, On 11/06/23 at 1200, For administration to inpatients, to be given by RN on inpatient nursing unit., CT Procedure Iohexol (OMNIPAQUE) 300 MG/ML vial 50 mL (1 source) Start: 08-19-2022 End: 08-19-2022 Iohexol (OMNIPAQUE) 300 MG/ML vial 50 mL iohexol (OMNIPAQUE) 350 MG/ML injection 1-171 mL (4 sources) Start: 11-06-2023 End: 11-06-2023 1-171 mL, Intravenous, ONCE, 1 dose, On 11/06/23 at 1200, Extravasation Risk, CT Procedure Start: 10-22-2022 End: 10-22-2022 iohexol (OMNIPAQUE) 350 [...] pantoprazole 40 mg delayed release oral tablet (3 sources) Proton Pump Inhibitor Start: 05-28-2022 End: 05-29-2022 pantoprazole (PROTONIX) tablet DR 40 mg Start: 05-23-2022 End: 05-28-2022 pantoprazole (PROTONIX) inje ction 40 mg take 2 tablets by mo uth once daily pantoprazole [address] tablet DR Take 2 tablets by mouth daily. Active phenol 14 mg/ml mouthwash (1 source) Start: 05-22-2022 End: 05-29-2022 phenol (CHLORASEPTIC) 1.4 % oral spray 2 spray polyethylene glycol 3350 68375 mg powder for oral solution (2 sources) Osmotic Laxative Start: 04-23-2022 End: 06-09-2022 polyethylene glycol 17 GM/SCOOP Powder powder 11 AM: Take entire contents over 2 hours as instructed. 250 g 0 04/23/2022 06/09/2022 Discontinued (Therapy completed) 100 ml potassium chloride 0.1 meq/ml injection (1 source) Start: 05-22-2022 End: 05-22-2022 potassium chloride 10 mEq in sterile water 100 ml premix IVPB sennosides, [facility] 8.6 mg oral tablet (3 sources) Start: 05-27-2022 End: 06-09-2022 take 1 tablet by mouth once daily as needed for constipation senna 8.6 MG tablet Take 1 tablet by mouth daily as needed for Constipation. Continue stool softeners while on narcotics. Hold for loose stools. 0 05/28/2022 06/09/2022 Discontinued (Therapy completed) 20 ml sodium chloride 9 mg/ml injection (6 sources) Start: 11-06-2023 End: 11-06-2023 1-100 mL, Intravenous, ONCE NEEDED, 1 dose, Starting on 11/06/23 at 1146, Until 11/06/23 at 1146, Flush, CT Procedure Start: 10-22-2022 End: 10-22-2022 Sodium chloride (PF) 0.9 % i njection 1-100 mL Start: 08-19-2022 End: 08-19-2022 Sodium chloride (PF) 0.9 % i njection 1-100 mL Start: 05-22-2022 End: 05-29-2022 sodium chloride 0.9% IV solu tion 250 mL Start: 03-31-2022 End: 03-31-2022 sodium chloride (PF) 0.9 % i njection 1-100 mL Problems Active Problems Problem Classification Problem Date Documented Date Episodic/Chronic Cancer of colon (2 sources) Malignant tumor of appendix; 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] 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-2022 Chronic Cardiac dysrhythmias (3 sources) Tachycardia; Translations: [Tachycardia, unspecified] Onset: 10-10-2022 Episodic Genitourinary symptoms and ill-defined conditions (2 sources) Increased frequency of urination; Translations: [Frequency of micturition] Onset: 12-22-2021 Resolved: 12-22-2021 Episodic Immunizations and screening for infectious disease (1 source) Raised antinuclear antibody; Translations: [Raised antibody titer] Episodic Malaise and fatigue (4 sources) Other [...] D/O SINGLE EPIS UNS] Onset: 04-09-2022 Chronic Nonmalignant breast conditions (5 sources) Unspecified lump in unspecified breast; Translations: [Solitary cyst of left breast] Onset: 09-23-2022 Episodic Nutritional deficiencies (1 source) Vitamin D deficiency, unspecified; Translations: [VITAMIN D DEFICIENCY UNSPECIFIED] Onset: 09-04-2022 Chronic Other connective tissue disease (1 source) Fibromyalgia; Translations: [Fibromyalgia] Episodic Other endocrine disorders (12 sources) Carcinoid syndrome; 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] Onset: 09-03-2022 Chronic Other endocrine disorders (3 sources) Carcinoid syndrome; 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] Onset: 12-01-2022 Chronic Other lower respiratory disease (2 sources) Dyspnea; Translations: [Shortness of breath] Episodic Other nervous system disorders (1 source) Postoperative pain ; Translations: [Other acute postprocedural pain] Episodic Other nutritional; endocrine; and metabolic disorders (8 sources) Obese class I; Translations: [Obesity, unspecified] [...] Translations: [UNSPECIFIED ACUTE APPENDICITIS] Onset: 02-10-2022 Episodic Gastrointestinal hemorrhage (2 sources) Hemorrhage of anus and rectum; Translations: [Hemorrhage of anus and rectum] Onset: 03-11-2023 Episodic Mood disorders (13 sources) Mood disorders Onset: 06-09-2022 Resolved: 12-16-2022 06-09-2022 Nausea and vomiting (1 source) Nausea; Translations: [NAUSEA] Onset: 08-14-2022 Episodic Neoplasms of unspecified nature or uncertain behavior (4 sources) Neoplasm of uncertain behavior of appendix; Translations: [Neoplasm of appendix] Onset: 10-07-2022 03-09-2023 Episodic Other aftercare (1 source) Other skilled nursing (current) drug therapy; Translations: [OTH DEPUTY ASSESSOR CURRENT DRUG THERAPY] Onset: 04-09-2022 Episodic Other [...] IN RIGHT LEG] Onset: 04-29-2022 Episodic Other gastrointestinal disorders (4 sources) Diarrhea, unspecified; Translations: [DIARRHEA UNSPECIFIED] Onset: 06-03-2022 Episodic Other screening for suspected conditions (not [...] Test Name Value Interpretation Reference Range Facility CT ABDOMEN/PELVIS WITH AND W ITHOUT CONTRASTon 11-08-2023 CT ABDOMEN/PELVIS WITH AND WITHOUT CONTRAST EXAM: CT ABDOMEN/PELVIS WITH AND WITHOUT CONTRAST COMPARISON: 12/10/2022 CLINICAL INDICATIONS: Neuroendocrine tumor. TECHNIQUE: CT scanning was performed through the abdomen and pelvis before and after the administration of intravenous contrast. Noncontrast, arterial, and portal venous phase imaging was obtained. PROTOCOL: Multiphase FINDINGS: LOWER THORAX: No pleural effusion. Stable 5 mm subpleural nodule in the left lower lobe. LIVER: No suspicious lesion. No focal suspicious arterially enhancing lesion. Mild hepatomegaly measuring 19.8 cm, mildly increased from 18.8 cm on prior. BILIARY: No biliary dilatation. The gallbladder is not visualized. PANCREAS: No ductal dilatation. No suspicious lesion. No arterially enhancing lesion. SPLEEN: No splenomegaly. ADRENAL GLANDS: Unremarkable. KIDNEYS/URETERS: No hydronephrosis. No suspicious mass. PELVIC ORGANS/BLADDER: Retroverted uterus. Evidence of an interval section. Heterogeneous appearance to the uterus and myometrium with nonspecific hypodense areas. Nonspecific prominence of the endometrium. Ovaries appear within normal limits. GI TRACT: Postsurgical changes status post right hemicolectomy. Stable appearance of the right enterocolic anastomosis without appreciable thickening or mass no bowel obstruction. PERITONEUM: Trace pelvic free fluid. Stable 3 x 5 mm nodule versus lymph node in the anterior left abdomen (series 10 image 60). A 3 x 3 mm nodule versus lymph node in the right anterior abdomen adjacent to colon is not definitely seen on prior but is nonspecific (series 10 image 52). Other similar-appearing 3 mm anterior nodules versus lymph nodes are stable (series 10 image 57 and 60). LYMPH NODES: No pathologically enlarged. VESSELS: No abdominal aortic aneurysm. The main portal vein is patent. BONES AND SOFT TISSUES: No suspicious osseous lesion. Postsurgical changes to the anterior abdominal wall. IMPRESSION: 1. Status post right hemicolectomy without evidence of recurrent disease at the surgical site. 2. New nonspecific 3 mm nodule versus lymph node at the anterior right abdomen. Other nonspecific small nodules versus lymph nodes in the anterior abdomen are stable. Attention on follow-up. 3. Mild hepatomegaly. Other findings as detailed above. Dr. Niya Gomez MD This report has been electronically signed and verified by the Radiologist whose name is printed above. This report contains privileged and confidential information [...] error, please notify the sender immediately at [phone] and permanently delete the original report and destroy any copies or printouts. Normal [facility] CBC AND ELECTRONIC DIFFon Basophils (Bld) [#/Vol] 0.05 10*3/uL Normal 0.00-0.15 [facility] Comment on above: Performed By: #### L [id number] #### [facility] (DEFAULT) [address] [place] [address] Basophils/100 WBC (Bld) 0.6 % Normal [facility] Comment on above: Performed By: #### L [id number] #### [facility] (DEFAULT) [address] [address] DIFF STATUS Electronic Differential Normal [facility] Comment on above: Performed By: #### L [id number] #### [facility] (DEFAULT) [address] [address] Eosinophils (Bld) [#/Vol] 0.19 10*3/uL Normal 0.00-0.42 [facility] Comment on above: Performed By: #### L [id number] #### [facility] (DEFAULT) [address] [address] Eosinophils/100 WBC (Bld) 2.3 % Normal [facility] Comment on above: Performed By: #### L [id number] #### [facility] (DEFAULT) [address] [address] Hematocrit (Bld) [Volume fraction] 41.9 % Normal 34.9-44.3 [facility] Comment on above: Performed By: #### L [id number] #### [facility] (DEFAULT) [address] [address] Hemoglobin (Bld) [Mass/Vol] 13.5 g/dL Normal 11.4-15.2 [facility] Comment on above: Performed By: #### L AB980 #### [facility] (DEFAULT) [address] [address] Immature Grans % 0.2 % Normal [facility] Comment on above: Performed By: #### L [id number] #### [facility] (DEFAULT) [address] [address] Immature Grans Absolute < Normal <=0.08 [facility] Comment on above: Performed By: #### L [id number] #### [facility] (DEFAULT) [address] [address] Lymphocytes (Bld) [#/Vol] 2.07 10*3/uL Normal 1.16-3.51 [facility] Comment on above: Performed By: #### L AB980 #### [facility] (DEFAULT) [address] [address] Lymphocytes/100 WBC (Bld) 25.6 % Normal [facility] Comment on above: Performed By: #### L AB980 #### [facility] (DEFAULT) [address] [address] MCV (RBC) [Entitic vol] 86.9 fL Normal 79.6-97.7 [facility] Comment on above: Performed By: #### L AB980 #### [facility] (DEFAULT) [address] [address] Mean Cell Hgb 28.0 pg Normal 25.9-33.9 [facility] Comment on above: Performed By: #### L [id number] #### [facility] (DEFAULT) [address] [address] Mean Cell Hgb Conc 32.2 g/dL Normal 31.4-35.9 [facility] Comment on above: Performed By: #### L [id number] #### [facility] (DEFAULT) [address] [address] Monocytes (Bld) [#/Vol] 0.66 10*3/uL Normal 0.22-0.87 [facility] Comment on above: Performed By: #### L AB980 #### [facility] (DEFAULT) [address] [address] Monocytes/100 WBC (Bld) 8.1 % Normal [facility] Comment on above: Performed By: #### L AB980 #### [facility] (DEFAULT) [address] [address] Nucleated RBC 0.0 /100 WBC Normal <=0.2 [facility] Comment on above: Performed By: #### L [id number] #### [facility] (DEFAULT) [address] [place] [address] Platelet mean volume (Bld) [Entitic vol] 9.7 fL Normal 8.5-12.2 [facility] Comment on above: Performed By: #### L [id number] #### [facility] (DEFAULT) [address] [place] [address] Platelets (Bld) [#/Vol] 318 10*3/uL Normal 150-393 [facility] Comment on above: Performed By: #### L [id number] #### [facility] (DEFAULT) [address] [address] RBC (Bld) [#/Vol] 4.82 10*6/uL Normal 3.91-5.04 [facility] Comment on above: Performed By: #### L [id number] #### [facility] (DEFAULT) [address] [place] [address] RBC Distribution 14.2 % Normal 10.8-14.9 [facility] Comment on above: Performed By: #### L [id number] #### [facility] (DEFAULT) [address] [address] Segs + Bands Auto 63.2 % Normal [facility] Comment on above: Performed By: #### L [id number] #### [facility] (DEFAULT) [address] [address] Segs + Bands,Absolute Auto 5.11 K/uL Normal 1.64-7.28 [facility] Comment on above: Performed By: #### L AB980 #### [facility] (DEFAULT) [address] [address] WBC (Bld) [#/Vol] 8.10 10*3/uL Normal 3.99-11.19 [facility] Comment on above: Performed By: #### L [id number] #### [facility] (DEFAULT) [address] [address] CHROMOGRANIN Aon 11-06-2023 Chromogranin A 30 ng/mL Normal <93 [facility] Comment on above: Result Comment: ADDITIONAL INFORMATION The testing method is a homogeneous time-resolved immunofluorescent assay manufactured by [employer] and performed on the [employer] Kryptor Compact Plus. Values obtained with different assay methods or kits may be different and cannot be used interchangeably. Test results cannot be interpreted as absolute evidence for the presence or absence of malignant disease. In some immunoassays, the presence of unusually [...] medical history, clinical examination and other findings. Test Performed by: [place] [address] Interactive Media Director: Ed Russo M.D. Ph.D.; CLIA# [id number] Performed By: #### Y CHGRA #### [facility] (DEFAULT) [address] [address] COMPREHENSIVE METABOLIC PANE Shamir 11-06-2023 Albumin [Mass/Vol] 4.6 g/dL Normal 3.5-5.0 [facility] Comment on above: Performed By: #### C MPN, LDO #### [facility] (DEFAULT) [address] [address] ALP [Catalytic activity/Vol] 75 U/L Normal 32-126 [facility] Comment on above: Performed By: #### C MPN, LDO #### [facility] (DEFAULT) [address] [address] ALT [Catalytic activity/Vol] 66 U/L High 9-48 [facility] Comment on above: Performed By: #### C MPN, LDO #### [facility] (DEFAULT) [address] [place] [address] Anion gap [Moles/Vol] 13 mmol/L Normal 7-17 [facility] Comment on above: Performed By: #### C MPN, LDO #### [facility] (DEFAULT) [address] [place] [address] AST [Catalytic activity/Vol] 40 U/L High 10-39 [facility] Comment on above: Performed By: #### C MPN, LDO #### [facility] (DEFAULT) [address] [place] [address] Bilirubin [Mass/Vol] 0.3 mg/dL Normal <1.5 [facility] Comment on above: Performed By: #### C MPN, LDO #### [facility] (DEFAULT) [address] [place] [address] Calcium [Mass/Vol] 9.7 mg/dL Normal 8.6-10.5 [facility] Comment on above: Performed By: #### C MPN, LDO #### [facility] (DEFAULT) [address] [place] [address] Chloride [Moles/Vol] 104 mmol/L Normal 98-108 [facility] Comment on above: Performed By: #### C MPN, LDO #### [facility] (DEFAULT) [address] [place] [address] CO2 [Moles/Vol] 30 mmol/L Normal 21-31 [facility] Comment on above: Performed By: #### C MPN, LDO #### [facility] (DEFAULT) [address] [place] [address] Creatinine [Mass/Vol] 0.61 mg/dL Normal 0.50-1.20 [facility] Comment on above: Performed By: #### C MPN, LDO #### [facility] (DEFAULT) [address] [place] [address] eGFR, CKD-EPI, Female > Normal >=60 [facility] Comment on above: Result Comment: Repo rted eGFR is based on the CKD-EPI 2020 equation using creatinine, age, and sex. Performed By: #### C MPN, LDO #### [facility] (DEFAULT) [address] [place] [address] Glucose [Mass/Vol] 62 mg/dL Low 70-99 [facility] Comment on above: Performed By: #### C MPN, LDO #### [facility] (DEFAULT) [address] [place] [address] Osmolality [Osmolality] 293 mosm/kg Normal 278-305 [facility] Comment on above: Performed By: #### C MPN, LDO #### [facility] (DEFAULT) [address] [place] [address] Potassium [Moles/Vol] 3.9 mmol/L Normal 3.5-5.0 [facility] Comment on above: Performed By: #### C MPN, LDO #### [facility] (DEFAULT) [address] [place] [address] Protein [Mass/Vol] 7.3 g/dL Normal 6.4-8.3 [facility] Comment on above: Performed By: #### C MPN, LDO #### [facility] (DEFAULT) [address] [place] [address] Sodium [Moles/Vol] 143 mmol/L Normal 135-145 [facility] Comment on above: Performed By: #### C MPN, LDO #### [facility] (DEFAULT) [address] [place] [address] Urea nitrogen [Mass/Vol] 6 mg/dL Low 7-25 [facility] Comment on above: Performed By: #### C MPN, LDO #### [facility] (DEFAULT) [address] [place] [address] Urea nitrogen/Creatinine [Mass ratio] 10 mg/mg Normal [facility] Comment on above: Performed By: #### C MPN, LDO #### [facility] (DEFAULT) [address] [place] [address] LACTATE DEHYDROGENASEon 04- LD Total 161 U/L Normal 100-190 [facility] Comment on above: Performed By: #### C MPN, LDO #### [facility] (DEFAULT) [address] [place] [address] Shamir 09-25-2023 L Specimen: [id number] Received: 09/27/23 Status: MARIANNA Mosqueda Num: [id number] Spec Type: Surgical Subm Dr: Ron Ruano Tissues: A Placenta - 3rd Trimester (Greater than 28 weeks) (PLACENTA) Procedures: HE/3, Gross/Micro L5 Age/ Patient Sex Location Account Attending Physician Zainab Mcclure 28/F LABELL [id number] Ron Ruano SPEC NUM: [id number] RECD: 09/27/23 STATUS: MARIANNA MOSQUEDA NUM: [id number] AUSTEN: 09/25/[address]: Ron Ruano ENTERED: 09/27/23 [facility] DR: [place],Lab SPEC TYPE: Surgical DEPT: CARL BAEZ ORDERED: [...] Zainab Swift per requisition, [facility] Gross Description Received in formalin labeled [...] of the cut surface of the placenta. Dairy Equipment Installer sections are submitted in 3 cassettes as follows: A1 - cord and central disc Specimen: [id number] Received: 09/27/23 Status: MARIANNA Mosqueda Num: [id number] Spec Type: Surgical Subm Dr: Ron Ruano Tissues: A Placenta - 3rd Trimester (Greater than 28 weeks) (PLACENTA) Procedures: HE/3, Gross/Micro L5 Patient: Zainab Mcclure [id number] (Continued) Specimen: [id number] Received: 09/27/23 (Continued) Gross Description (Continued) Signed (signature on file) Hawk Stevens MD 09/28/232017 Specimen: [id number] Received: 09/27/23 Status: MARIANNA Mosqueda Num: [id number] Spec Type: Surgical Subm Dr: Ron Ruano Tissues: A Placenta - 3rd Trimester (Greater than 28 weeks) (PLACENTA) Procedures: , Gross/Micro L5 Patient: Zainab Mcclure [id number] (Continued) Specimen: [id number] Received: 09/27/23 (Continued) Gross Description (Continued) A2 - membranes and marginal disc A3 - Superficial lesion CPT Codes 23676 Specimen: [id number] Received: 09/27/23 Status: MARIANNA Sotovinny Num: [id number] Spec Type: Surgical Subm Dr: Ron Ruano Tissues: A Placenta - 3rd Trimester (Greater than 28 weeks) (PLACENTA) Procedures: HE/3, Gross/Micro L5 Patient: Zainab Mcclure [id number] (Continued) Signed (signature on file) Hawk Stevens MD 09/28/232017 [facility] CHROMOGRANIN Aofreddie 03-11-2023 Chromogranin A <20 Normal <93 [facility] Comment on above: Result Comment: ADDITIONAL INFORMATION This test was developed and its performance characteristics determined by [facility] in a manner consistent with CLIA requirements. [...] a homogeneous time-resolved immunofluorescent assay manufactured by [employer] and performed on the [employer]. Values obtained with different assay methods or kits may be different and cannot be used interchangeably. Test results cannot be interpreted as absolute evidence for the presence or absence of malignant disease. Test Performed by: [facility] [address] [id number] Interactive Media Director: Ed Russo M.D. Ph.D.; CLIA# [id number] Performed By: #### Y CHGRA #### [facility] ([facility]) [address] [place] [address] MRI ABDOMEN/PELVIS WITHOUT C [facility] 03-11-2023 MRI ABDOMEN/PELVIS WITHOUT CONTRAST EXAM: [...] not well visualized on this exam. Normal [facility] IMPRESSION: 1. Stable postoperative changes from [...] is not well visualized on this exam. [facility] Radiology Study observation (narrative) [facility] MRI ABDOMEN/PELVIS WITHOUT C ONTRASTOrdered By: Mandi Montiel on 03-11-2023 [facility] Work Phone: CT ABDOMEN/PELVIS WITH AND [...] nodes and have decreased in size. Normal [facility] CT Chest W contrast Jason IMPRESSION: [...] Tissue: No suspicious osseous lesion. RADIOLOGY Benjamin Santos, MIKE/DAVID - 10/23/2022 EXAM: CT CHEST WITH CONTRAST, [...] I have reviewed and approved this report. [facility] CT Chest W contrast IVOrdere d By: Benjamin [facility] Jason Radiology Study observation (narrative) [facility] CT Neck W contrast Jason IMPRESSION: Examination is within normal limits. Negative [...] for mass or adenopathy in the neck. [facility] Radiology Study observation (narrative) [facility] contrast IVOrdered By: Miguel Espinal on 10-22-2022 [facility] Work Phone: Cardiac echo study Procedure Ordered By: Guerrero Carvalho on 10-22-2022 Ao peak raj 1.26 m/s [facility] Work Phone: Ao VTI 19.98 cm [facility] Work Phone: Ascending aorta 2.62 cm [facility] Work Phone: AV LVOT peak gradient 3 mmHg [facility] Work Phone: AV mean gradient 3 mmHg [facility] Work Phone: AV peak gradient 6 mmHG [facility] Work Phone: AV valve area 2.24 cm2 [facility] Work Phone: AV Velocity Ratio 0.70 [facility] Work Phone: FRANK (continuity Vmax) 1.82 cm2 [facility] Work Phone: FRANK (continuity VTI) 2.24 cm2 [facility] Work Phone: FRANK index (continuity Vmax) 1.06 m/s [facility] Work Phone: FRANK index (continuity VTI) 1.30 cm2/m2 [facility] Work Phone: Avg e' pk raj 0.15 m/s [facility] Work Phone: Avg E/e' ratio 4.89 [facility] Work Phone: Body surface area Derived from formula 1.72 m2 [facility] Work Phone: BP EF 62 % [facility] Work Phone: DI (Vmax) 0.70 [facility] Work Phone: DI (VTI) 0.86 m/2 [facility] Work Phone: E wave decelartion time 217.58 msec [facility] Work Phone: e' lateral pk raj 0.1597 [facility]s [facility]: e' lateral pk raj 0.16 m/s [facility]: e' septal pk raj 0.1401 m/s [facility]: e' septal pk raj 0.14 m/s [facility]: E/A ratio 0.74 [facility] Work Phone: E/e' lateral [facility].57 [facility]: E/e' septal ratio 5.21 [facility] Work Phone: EF SP 2CH 64 [facility] Work Phone: EF SP 4CH 59 [facility] Work Phone: FS 33 % 28 - 44 % [facility] Work Phone: IVC ostium 1.46 cm [facility] Work Phone: IVS 0.61 cm [facility] Work Phone: LA AREA 2CH 13.72 cm2 [facility] Work Phone: LA area 4CH 9.33 cm2 [facility] Work Phone: LA ESV BP (MOD) 29 mL [facility] Work Phone: LA ESV BP (MOD) index 17 mL/m2 [facility] Work Phone: LA ESV SP 2CH (MOD) 37 mL [facility] Work Phone: LA ESV SP 4CH (MOD) 19 mL [facility] Work Phone: Long Strain -21.7 % [facility] Work Phone: LV EDV BP 71 mL [facility] Work Phone: LV EDV SP 2CH 76 mL [facility] Work Phone: LV EDV SP 4CH 61 mL [facility] Work Phone: LV ESV BP 27 mL [facility] Work Phone: LV ESV SP 2CH 27 mL [facility] Work Phone: LV ESV SP 4CH 25 mL [facility] Work Phone: LV mass 68.53 g [facility] Work Phone: LV Mass Index 39.8 g/m2 [facility] Work Phone: LV RWT 0.30 [facility] Work Phone: LV stroke volume BP (ml) 44 mL [facility] Work Phone: LV stroke volume index BP 25.58 mL/m2 [facility] Work Phone: LVIDD 4.10 cm [facility] Work Phone: LVIDS 2.73 cm [facility] Work Phone: LVOT area 2.60 cm2 [facility] Work Phone: LVOT diameter 1.82 cm [facility] Work Phone: LVOT peak raj 0.88 m/s [facility] Work Phone: LVOT peak VTI 17.19 cm [facility] Work Phone: LVOT stroke volume 45 cm3 [facility] Work Phone: LVOT stroke volume index 25.99 ml/m2 [facility] Work Phone: MV pk A raj 0.98 m/s [facility] Work Phone: MV pk E raj 0.73 m/s [facility] Work Phone: MV stenosis pressure 1/2 time 63.10 ms [facility] Work Phone: MV valve area p 1/2 method 3.49 cm2 [facility] Work Phone: [facility] AV VTI RATIO PRE STRESS 0.86 [facility] Work Phone: OSU ECHO LV BIPLANE SYSTOLIC VOLUME INDEX 15.70 mL/m2 [facility] Work Phone: OSU ECHO LV BP DIASTOLIC VOLUME INDEX 41.28 mL/m2 [facility] Work Phone: PV peak gradient 4 mmHg [facility] Work Phone: PV PK RAJ 0.97 m/s [facility] Work Phone: PW 0.61 cm [facility] Work Phone: RA vol index 4CH (MOD) 12.79 mL/m2 [facility] Work Phone: Right atrium volume 4 chamber method of disks 22 mL [facility] Work Phone: RV Area diastolic 21.85 cm2 [facility] Work Phone: RV Area systolic 11.51 cm2 [facility] Work Phone: RV basal diam 3.02 cm [facility] Work Phone: RV Fractional area change 47.3 % [facility] Work Phone: RV long diam 7.35 cm [facility] Work Phone: RV Long Strain -28.0 % [facility] Work Phone: RV mid diam 2.68 cm [facility] Work Phone: RV S' 12.55 cm/s [facility] Work Phone: RVOT peak gradient 1 mmHg [facility] Work Phone: RVOT peak raj 0.59 m/s [facility] Work Phone: Sinus 2.70 cm [facility] Work Phone: STJ 2.41 cm [facility] Work Phone: Stroke Volume 45 cm/mL [facility] Work Phone: Stroke volume index 26 [facility] Work Phone: TAPSE 2.03 cm [facility] Work Phone: [facility] Work Phone: Cardiac echo study Procedure [...] ventricular strain) was performed. Imaging system used: [employer]. Indications Indications for study: chest pain, other, tachycardia and shortness of breath - Neuroendocrine tumor, LAMN. Wall Scoring Score Index: 1.00 The left ventricular wall motion is normal. [facility] Radiology Study observation (narrative) [facility] B-TYPE NATRIURETIC PEPTIDE ( BRAIN)on 10-07-2022 Interpretation and review of laboratory results Normal [facility] Natriuretic peptide B (Bld) [Mass/Vol] 4 pg/mL 0 - 100 pg/mL [facility] HIGH SENSITIVITY TROPONIN I - SINGLE ORDERon 10-07-2022 Interpretation and review of laboratory results Normal [facility] Troponin I.cardiac High sensitivity method [Mass/Vol] ng/L NINF - 34 ng/L [facility] MONOon 10-02-2022 Monocytes (Bld) [#/Vol] Negative Normal NEGATIVE [facility] Comment on above: Performed By: #### L IVER, LDH, BMP #### [facility] [address] [place] [address] Dr. Esthela Stevens CBC AUTO DIFFon 09-30-2022 BASO # 0.1 103/ul Normal 0.0-0.1 [facility] Comment on above: Performed By: #### L IVER, LDH, BMP #### [facility] [address] [place] [address] Dr. Esthela Stevens Basophils/100 WBC (Bld) 0.8 % Normal 0.2-2.0 [facility] Comment on above: Performed By: #### L IVER, LDH, BMP #### [facility] [address] [place] [address] Dr. Esthela Stevens EO # 0.1 103/ul Normal 0.0-0.7 [facility] Comment on above: Performed By: #### L IVER, LDH, BMP #### [facility] [address] [place] [address] Dr. Esthela Stevens Eosinophils/100 WBC (Bld) 1.7 % Normal 0.9-7.0 [facility] Comment on above: Performed By: #### L IVER, LDH, BMP #### [facility] [address] [place] [address] Dr. Esthela Stevens Erythrocyte distribution width (RBC) [Ratio] 13.1 % Normal 11.0-15.0 [facility] Comment on above: Performed By: #### L IVER, LDH, BMP #### [facility] [address] [place] [address] Dr. Esthela Stevens Hematocrit (Bld) [Volume fraction] 38.4 % Normal 36.0-48.0 [facility] Comment on above: Performed By: #### L IVER, LDH, BMP #### [facility] [address] [place] [address] Dr. Esthela Stevens Hemoglobin (Bld) [Mass/Vol] 12.4 g/dL Normal 12.0-16.0 [facility] Comment on above: Performed By: #### L IVER, LDH, BMP #### [facility] [address] [place] [address] Dr. Esthela Stevens IG # 0.02 10e3/ul Normal 0.00-0.03 [facility] Comment on above: Performed By: #### L IVER, LDH, BMP #### [facility] [address] [place] [address] Dr. Esthela Stevens IG % 0.3 % Normal 0.0-0.5 [facility] Comment on above: Performed By: #### L IVER, LDH, BMP #### [facility] [address] [place] [address] Dr. Esthela Stevens LYMPH # 2.2 103/ul Normal 1.2-3.8 [facility] Comment on above: Performed By: #### L IVER, LDH, BMP #### [facility] [address] [place] [address] Dr. Esthela Stevens Lymphocytes/100 WBC (Bld) 32.8 % Normal 20.5-60.0 [facility] Comment on above: Performed By: #### L IVER, LDH, BMP #### [facility] [address] [place], [place] [id number] Dr. Esthela Stevens MANUAL DIFF REQ NO Normal [facility] Comment on above: Performed By: #### L IVER, LDH, BMP #### [facility] [address] [place] [address] Dr. Esthela Stevens MCH (RBC) [Entitic mass] 27.1 pg Normal 26.7-34.0 [facility] Comment on above: Performed By: #### L IVER, LDH, BMP #### [facility] [address] [place] [address] Dr. Esthela Stevens MCHC (RBC) [Mass/Vol] 32.3 g/dL Normal 29.9-35.2 [facility] Comment on above: Performed By: #### L IVER, LDH, BMP #### [facility] [address] [place] [address] Dr. Esthela Stevens MCV (RBC) [Entitic vol] 83.8 fL Normal 81.0-99.0 [facility] Comment on above: Performed By: #### L IVER, LDH, BMP #### [facility] [address] [place] [address] Dr. Esthela Stevens MONO # 0.5 103/ul Normal 0.3-0.8 [facility] Comment on above: Performed By: #### L IVER, LDH, BMP #### [facility] [address] [place] [address] Dr. Esthela Stevens Monocytes/100 WBC (Bld) 8.0 % Normal 1.7-12.0 [facility] Comment on above: Performed By: #### L IVER, LDH, BMP #### [facility] [address] [place] [address] Dr. Esthela Stevens NEUT # 3.7 103/ul Normal 1.4-6.5 [facility] Comment on above: Performed By: #### L IVER, LDH, BMP #### [facility] [address] [place] [address] Dr. Esthela Stevens Neutrophils/100 WBC (Bld) 56.4 % Normal 43.0-75.0 [facility] Comment on above: Performed By: #### L IVER, LDH, BMP #### [facility] [address] [address] [address] Esthela Stevens Platelet mean volume (Bld) [Entitic vol] 9.3 fL Critically low 9.5-13.5 [facility] Comment on above: Performed By: #### L IVER, LDH, BMP #### [facility] [address] [address] [address] Esthela Stevens PLT 334 103/ul Normal 150-450 [facility] Comment on above: Performed By: #### L IVER, LDH, BMP #### [facility] [address] [place] [address] Dr. Esthela Stevens RBC 4.58 106/ul Normal 4.20-5.40 [facility] Comment on above: Performed By: #### L IVER, LDH, BMP #### [facility] [address] [place] [address] Dr. Esthela Stevens WBC 6.6 103/ul Normal 4.0-11.0 [facility] Comment on above: Performed By: #### L IVER, LDH, BMP #### [facility] [address] [place] [address] Dr. Esthela Stevens LDHon 09-30-2022 LDH 122 U/L Normal 81-234 [facility] Comment on above: Performed By: #### L IVER, LDH, BMP #### [facility] [address] [place] [address] Dr. Esthela Stevens LIVER PROFILEon 09-30-2022 Albumin [Mass/Vol] 4.1 g/dL Normal 3.4-5.0 [facility] Comment on above: Performed By: #### L IVER, LDH, BMP #### [facility] [address] [place] [address] Dr. Esthela Stevens Albumin/Globulin [Mass ratio] 1.2 {ratio} Normal [facility] Comment on above: Performed By: #### L IVER, LDH, BMP #### [facility] [address] [place] [address] Dr. Esthela Stevens ALP [Catalytic activity/Vol] 75 U/L Normal 46-116 [facility] Comment on above: Performed By: #### L IVER, LDH, BMP #### [facility] [address] [place] [address] Dr. Esthela Stevens ALT [Catalytic activity/Vol] 41 U/L Normal 14-59 [facility] Comment on above: Performed By: #### L IVER, LDH, BMP #### [facility] [address] [place] [address] Dr. Esthela Stevens AST [Catalytic activity/Vol] 30 U/L Normal 15-37 [facility] Comment on above: Performed By: #### L IVER, LDH, BMP #### [facility] [address] [place] [address] Dr. Esthela Stevens BILI, CONJUGATED 0.1 mg/dL Normal 0.0-0.2 [facility] Comment on above: Performed By: #### L IVER, LDH, BMP #### [facility] [address] [place] [address] Dr. Esthela Stevens Bilirubin [Mass/Vol] 0.5 mg/dL Normal 0.2-1.0 [facility] Comment on above: Performed By: #### L IVER, LDH, BMP #### [facility] [address] [place] [address] Dr. Esthela Stevens Globulin (S) [Mass/Vol] 3.3 g/dL Normal [facility] Comment on above: Performed By: #### L IVER, LDH, BMP #### [facility] [address] [place] [address] Dr. Esthela Stevens Protein [Mass/Vol] 7.4 g/dL Normal 6.4-8.2 [facility] Comment on above: Performed By: #### L IVER, LDH, BMP #### [facility] [address] [place] [address] Dr. Esthela Stevens PROF CHEM 8 (BAS METB)on Anion gap [Moles/Vol] 9.2 mmol/L Normal [facility] Comment on above: Performed By: #### L IVER, LDH, BMP #### [facility] [address] [address] [address] Esthela Stevens Calcium [Mass/Vol] 9.0 mg/dL Normal 8.5-10.1 [facility] Comment on above: Performed By: #### L IVER, LDH, BMP #### [facility] [address] [address] [address] Esthela Stevens Chloride [Moles/Vol] 102 mmol/L Normal 98-107 [facility] Comment on above: Performed By: #### L IVER, LDH, BMP #### [facility] [address] [address] [address] Esthela Stevens CO2 [Moles/Vol] 27.8 mmol/L Normal 21.0-32.0 [facility] Comment on above: Performed By: #### L IVER, LDH, BMP #### [facility] [address] [place] [address] Dr. Esthela Stevens Creatinine [Mass/Vol] 0.63 mg/dL Normal 0.55-1.02 [facility] Comment on above: Performed By: #### L IVER, LDH, BMP #### [facility] [address] [place] [address] Dr. Esthela Stevens EGFR-AF MICRONESIAN >60 Normal >=60 [facility] Comment on above: Performed By: #### L IVER, LDH, BMP #### [facility] [address] [place] [address] Dr. Esthela Stevens EGFR-NON AF MICRONESIAN >60 Normal >=60 [facility] Comment on above: Performed By: #### L IVER, LDH, BMP #### [facility] [address] [address] [address] Esthela Stevens Glucose [Mass/Vol] 106 mg/dL Normal 74-106 [facility] Comment on above: Performed By: #### L IVER, LDH, BMP #### [facility] [address] [place] [address] Dr. Esthela Stevens Potassium [Moles/Vol] 4.0 mmol/L Normal 3.5-5.1 [facility] Comment on above: Performed By: #### L IVER, LDH, BMP #### [facility] [address] [address] [address] Esthela Stevens Sodium [Moles/Vol] 135 mmol/L Critically low 136-145 [facility] Comment on above: Performed By: #### L IVER, LDH, BMP #### [facility] [address] [address] [address] Esthela Stevens Urea nitrogen [Mass/Vol] 9.0 mg/dL Normal 7.0-18.0 [facility] Comment on above: Performed By: #### L IVER, LDH, BMP #### [facility] [address] [address] [address] Esthela Stevens Urea nitrogen/Creatinine [Mass ratio] 14.3 mg/mg Normal [facility] Comment on above: Performed By: #### L IVER, LDH, BMP #### [facility] [address] [place] [address] Dr. Esthela Stevens MG MAMM DIAGNOSTIC 3D EFREN CA Don 09-23-2022 MG MAMM DIAGNOSTIC 3D EFREN CAD Patient: ZAINAB SWIFT Exam Date: 09/23/2022 : 1995 Gender:F Ordering : ERIN SAMS [facility] Admission #: [id number] Family : Order #: [id number] CLICK HERE TO VIEW EXAM RADIOLOGY REPORT [...] cervical cancer at age 42. LOCATION: [facility] BREAST COMPOSITION: Extremely dense, which [...] M.D. on 09/23/2022 at 11:31 Normal [facility] US BREAST EFREN LIMITEDon 03-0 US BREAST EFREN LIMITED Patient: ZAINAB SWIFT Exam Date: 09/23/2022 : 1995 Gender:F Ordering : ERIN SAMS [facility] Admission #: [id number] Family : Order #: [id number] CLICK HERE TO VIEW EXAM RADIOLOGY REPORT [...] cervical cancer at age 42. LOCATION: [facility] BREAST COMPOSITION: Extremely dense, which [...] M.D. on 09/23/2022 at 11:31 Normal [facility] Covid-19 PCR (CVDTB)on 08-20 SARS-CoV-2 (COVID-19) RNA JORGE LUIS+probe Ql (Unsp spec) Not detected Normal NOT DETECTED [facility] Comment on above: Result Comment: [...] for this test is supported by the Pulmonology Technician of Health and Human Service's declaration that [...] used). Performed By: #### P REG #### [facility] [address] [place] [address] Dr. Esthela Stevens INFLUENZA A AND B AGon 09-15 [facility] SEE BELOW Normal [facility] Comment on above: Result Comment: Nega tive for Flu A protein angiten. Infection due to Flu A cannot be ruled out. Flu A angiten in the sample may be below the detection limit of the test. Performed By: #### L IVER, LDH, BMP #### [facility] [address] [place] [address] Dr. Esthela Stevens [facility] SEE BEL[facility] Normal [facility] Comment on above: Result Comment: Nega tive for Flu B protein antigen. Infection due to Flu B cannot be ruled out. Flu B antigen in the sample may be below the detection limit of the test. Performed By: #### L IVER, LDH, BMP #### [facility] [address] [address] [address] Esthela Stevens INFLUENZA A AG Negative Normal NEGATIVE SEE COMMENT [facility] Comment on above: Performed By: #### L IVER, LDH, BMP #### [facility] [address] [address] [address] Esthela Stevens INFLUENZA B AG Negative Normal NEGATIVE SEE COMMENT [facility] Comment on above: Performed By: #### L IVER, LDH, BMP #### [facility] [address] [address] [address] Esthela Stevens HUNTER by IFAon 09-04-2022 Antinuclear Antibodies, IFA Positive Abnormal [facility] Comment on above: Result Comment: Nega tive <1:80 Borderline 1:80 Positive >1:80 Performed By: #### P REG #### [facility] [address] [place] [address] Dr. Esthela Stevens Centriole Pattern Normal [facility] Comment on above: Performed By: #### P REG #### [facility] [address] [address] Dr. Esthela Stevens Centromere Pattern Normal [facility] Comment on above: Performed By: #### P REG #### [facility] [address] [address] [address] Esthela Stevens Homogeneous Pattern 1:160 Critically high [facility] Comment on above: Result Comment: ICAP nomenclature: AC-1 Performed By: #### P REG #### [facility] [address] [place] [address] Dr. Esthela Stevens Midbody Pattern Normal [facility] Comment on above: Performed By: #### P REG #### [facility] [address] [place] [address] Dr. Esthela Stevens Note: Comment Normal [facility] Comment on above: Result Comment: For more [...] titers Nucleosomes, Histones Drug-induced SLE Speckled Sm, QUALITY TECH, SCL-70, SLE,MCTD,PSS (diffuse form), SS-A/SS-B Sjogrens Nucleolar SCL-70, PM-1/SCL High titers Scleroderma, PM/DM Centromere Centromere PSS (limited form) w/Crest syndrome variable Nuclear Dot [id number] Primary Biliary Cirrhosis Nuclear GP210, Primary Biliary Cirrhosis Membrane italia A,B,C Performed By: #### P REG #### [facility] [address] [place] [address] Dr. Esthela Stevens Nuclear Dot Pattern Normal [facility] Comment on above: Performed By: #### P REG #### [facility] [address] [place] [address] Dr. Esthela Stevens Nuclear Membrane Pattern Normal [facility] Comment on above: Performed By: #### P REG #### [facility] [address] [place] [address] Dr. Esthela Stevens Nucleolar Pattern Normal [facility] Comment on above: Performed By: #### P REG #### [facility] [address] [place] [address] Dr. Esthela Stevens PCNA Pattern Normal [facility] Comment on above: Performed By: #### P REG #### [facility] [address] [place] [address] Dr. Esthela Stevens Speckled Pattern Normal [facility] Comment on above: Performed By: #### P REG #### [facility] [address] [place] [address] Dr. Esthela Stevens Spindle Apparatus Pattern Normal [facility] Comment on above: Performed By: #### P REG #### [facility] [address] [place] [address] Dr. Esthela Stevens ANTISTREPTOLYSIN O AB (ASO)o n 09-01-2022 Antistreptolysin O Ab 58.8 IU/mL Normal 0.0-200.0 [facility] Comment on above: Performed By: #### L IVER, LDH, BMP #### [facility] [address] [place] [address] Dr. Esthela Stevens INSULINon 09-01-2022 Insulin 12.2 uIU/mL Normal 2.6-24.9 [facility] Comment on above: Performed By: #### I NSULIN #### [facility] [address] [place] [address] Dr. Esthela Stevens RHEUMATOID FACTORon 09-01-19 RA Latex Turbid. <10.0 Normal <14.0 [facility] Comment on above: Performed By: #### L IVER, LDH, BMP #### [facility] [address] [place] [address] Dr. Esthela Stevens CBC AUTO DIFFon 08-31-2022 BASO # 0.0 103/ul Normal 0.0-0.1 [facility] Comment on above: Performed By: #### P REG #### [facility] [address] [place] [address] Dr. Esthela Stevens Basophils/100 WBC (Bld) 0.6 % Normal 0.2-2.0 [facility] Comment on above: Performed By: #### P REG #### [facility] [address] [place] [address] Dr. Esthela Stevens EO # 0.1 103/ul Normal 0.0-0.7 [facility] Comment on above: Performed By: #### P REG #### [facility] [address] [place] [address] Dr. Esthela Stevens Eosinophils/100 WBC (Bld) 1.5 % Normal 0.9-7.0 [facility] Comment on above: Performed By: #### P REG #### [facility] [address] [place] [address] Dr. Esthela Stevens Erythrocyte distribution width (RBC) [Ratio] 12.7 % Normal 11.0-15.0 [facility] Comment on above: Performed By: #### P REG #### [facility] [address] [place] [address] Dr. Esthela Stevens Hematocrit (Bld) [Volume fraction] 38.4 % Normal 36.0-48.0 [facility] Comment on above: Performed By: #### P REG #### [facility] [address] [place] [address] Dr. Esthela Stevens Hemoglobin (Bld) [Mass/Vol] 12.7 g/dL Normal 12.0-16.0 [facility] Comment on above: Performed By: #### P REG #### [facility] [address] [place] [address] Dr. Esthela Stevens IG # 0.02 10e3/ul Normal 0.00-0.03 [facility] Comment on above: Performed By: #### P REG #### [facility] [address] [place] [address] Dr. Esthela Stevens IG % 0.3 % Normal 0.0-0.5 [facility] Comment on above: Performed By: #### P REG #### [facility] [address] [place] [address] Dr. Esthela Stevens LYMPH # 2.0 103/ul Normal 1.2-3.8 [facility] Comment on above: Performed By: #### P REG #### [facility] [address] [place] [address] Dr. Esthela Stevens Lymphocytes/100 WBC (Bld) 31.2 % Normal 20.5-60.0 [facility] Comment on above: Performed By: #### P REG #### [facility] [address] [place] [address] Dr. Esthela Stevens MANUAL DIFF REQ NO Normal [facility] Comment on above: Performed By: #### P REG #### [facility] [address] [place] [address] Dr. Esthela Stevens MCH (RBC) [Entitic mass] 27.1 pg Normal 26.7-34.0 [facility] Comment on above: Performed By: #### P REG #### [facility] [address] [place] [address] Dr. Esthela Stevens MCHC (RBC) [Mass/Vol] 33.1 g/dL Normal 29.9-35.2 [facility] Comment on above: Performed By: #### P REG #### [facility] [address] [place] [address] Dr. Esthela Stevens MCV (RBC) [Entitic vol] 82.1 fL Normal 81.0-99.0 [facility] Comment on above: Performed By: #### P REG #### [facility] [address] [place] [address] Dr. Esthela Stevens MONO # 0.4 103/ul Normal 0.3-0.8 [facility] Comment on above: Performed By: #### P REG #### [facility] [address] [place] [address] Dr. Esthela Stevens Monocytes/100 WBC (Bld) 6.4 % Normal 1.7-12.0 [facility] Comment on above: Performed By: #### P REG #### [facility] [address] [place] [address] Dr. Esthela Stevens NEUT # 3.9 103/ul Normal 1.4-6.5 [facility] Comment on above: Performed By: #### P REG #### [facility] [address] [place] [address] Dr. Esthela Stevens Neutrophils/100 WBC (Bld) 60.0 % Normal 43.0-75.0 [facility] Comment on above: Performed By: #### P REG #### [facility] [address] [place] [address] Dr. Esthela Stevens Platelet mean volume (Bld) [Entitic vol] 9.2 fL Critically low 9.5-13.5 [facility] Comment on above: Performed By: #### P REG #### [facility] [address] [place] [address] Dr. Esthela Stevens PLT 390 103/ul Normal 150-450 [facility] Comment on above: Performed By: #### P REG #### [facility] [address] [place] [address] Dr. Esthela Stevens RBC 4.68 106/ul Normal 4.20-5.40 [facility] Comment on above: Performed By: #### P REG #### [facility] [address] [place] [address] Dr. Esthela Stevens WBC 6.5 103/ul Normal 4.0-11.0 [facility] Comment on above: Performed By: #### P REG #### [facility] [address] [address] [address] Esthela Stevens CRPon 08-31-2022 CRP [Mass/Vol] mg/L Normal <=1.0 [facility] Comment on above: Performed By: #### L IVER, LDH, BMP #### [facility] [address] [place] [address] Dr. Esthela Stevens FREE THYROXINE INDEX T7on FTI 2.94 Normal 1.30-4.50 [facility] Comment on above: Performed By: #### L IVER, LDH, BMP #### [facility] [address] [place] [address] Dr. Esthela Stevens T3U 33.0 % Normal 30.0-39.0 [facility] Comment on above: Performed By: #### L IVER, LDH, BMP #### [facility] [address] [address] [address] Esthela Stevens T4 [Mass/Vol] 8.90 ug/dL Normal 4.80-13.90 [facility] Comment on above: Performed By: #### L IVER, LDH, BMP #### [facility] [address] [place] [address] Dr. Esthela Stevens GLYCOHEMOGLOBIN A1Con 2022 ADA RECOMMENDATION SEE BELOW Normal [facility] Comment on above: Result Comment: ADA RECOMMENDED LIMIT 4.0 - 6.0 ADA THERAPEUTIC TARGET < 7.0 ACTION SUGGESTED > 7.0 Performed By: #### L IVER, LDH, BMP #### [facility] [address] [place] [address] Dr. Esthela Stevens Glucose [Mass/Vol] 111 mg/dL Normal [facility] Comment on above: Performed By: #### L IVER, LDH, BMP #### [facility] [address] [place] [address] Dr. Esthela Stevens HbA1c (Bld) [Mass fraction] 5.5 % Normal 4.5-6.2 [facility] Comment on above: Performed By: #### L IVER, LDH, BMP #### [facility] [address] [address] [address] Esthela Stevens IRONon 08-31-2022 Iron [Mass/Vol] 34.0 ug/dL Critically low 50.0-170.0 [facility] Comment on above: Performed By: #### L IVER, LDH, BMP #### [facility] [address] [address] [address] Esthela Stevens LIPID PROFILEon 08-31-2022 CHOL-HDL RATIO NORM SEE BELOW Normal [facility] Comment on above: Result Comment: 3.3 - 4.4 LOW RISK 4.4 - 7.1 AVERAGE RISK 7.1 - 11.0 MODERATE RISK >11.0 HIGH RISK Performed By: #### L IVER, LDH, BMP #### [facility] [address] [address] [address] Esthela Stevens Cholesterol [Mass/Vol] 168 mg/dL Normal <=200 [facility] Comment on above: Performed By: #### L IVER, LDH, BMP #### [facility] [address] [address] [address] Esthela Stevens Cholesterol in HDL [Mass/Vol] 51 mg/dL Normal 40-60 [facility] Comment on above: Performed By: #### L IVER, LDH, BMP #### [facility] [address] [address] [address] Esthela Stevens Cholesterol in LDL [Mass/Vol] 91.8 mg/dL Normal [facility] Comment on above: Performed By: #### L IVER, LDH, BMP #### [facility] [address] [address] [address] Esthela Stevens Cholesterol.total/Ch olesterol in HDL [Mass ratio] 3.3 {ratio} Normal [facility] Comment on above: Performed By: #### L IVER, LDH, BMP #### [facility] [address] [address] [address] Esthela Stevens HDL NORMAL > or = 60 mg/dl - LOW CARDIOVASCULAR RISK <40 mg/dl - HIGH CARDIOVASCULAR RISK Normal [facility] Comment on above: Performed By: #### L IVER, LDH, BMP #### [facility] [address] [address] [address] Esthela Stevens LDL CALC NORMAL SEE BELOW Normal [facility] Comment on above: Result Comment: <100 mg/dl OPTIMAL 100 - 129 mg/dl NEAR OR ABOVE OPTIMAL 130 - 159 mg/dl BORDERLINE HIGH 160 - 189 mg/dl HIGH >190 mg/dl VERY HIGH Performed By: #### L IVER, LDH, BMP #### [facility] [address] [address] [address] Esthela Stevens Triglyceride [Mass/Vol] 126 mg/dL Normal <=150 [facility] Comment on above: Performed By: #### L IVER, LDH, BMP #### [facility] [address] [address] [address] Esthela Stevens VLDL CALC 25.2 mg/dL Normal [facility] Comment on above: Performed By: #### L IVER, LDH, BMP #### [facility] [address] [place] [address] Dr. Esthela Stevens PROF 14(COMP METB)on 023 Albumin [Mass/Vol] 4.2 g/dL Normal 3.4-5.0 [facility] Comment on above: Performed By: #### L IVER, LDH, BMP #### [facility] [address] [place] [address] Dr. Esthela Stevens Albumin/Globulin [Mass ratio] 1.1 {ratio} Normal [facility] Comment on above: Performed By: #### L IVER, LDH, BMP #### [facility] [address] [address] [address] Esthela Stevens ALP [Catalytic activity/Vol] 74 U/L Normal 46-116 [facility] Comment on above: Performed By: #### L IVER, LDH, BMP #### [facility] [address] [address] [address] Esthela Stevens ALT [Catalytic activity/Vol] 57 U/L Normal 14-59 [facility] Comment on above: Performed By: #### L IVER, LDH, BMP #### [facility] [address] [address] [address] Esthela Stevens Anion gap [Moles/Vol] 15.0 mmol/L Normal [facility] Comment on above: Performed By: #### L IVER, LDH, BMP #### [facility] [address] [place] [address] Dr. Esthela Stevens AST [Catalytic activity/Vol] 25 U/L Normal 15-37 [facility] Comment on above: Performed By: #### L IVER, LDH, BMP #### [facility] [address] [place] [address] Dr. Esthela Stevens Bilirubin [Mass/Vol] 0.4 mg/dL Normal 0.2-1.0 [facility] Comment on above: Performed By: #### L IVER, LDH, BMP #### [facility] [address] [place] [address] Dr. Esthela Stevens Calcium [Mass/Vol] 9.4 mg/dL Normal 8.5-10.1 [facility] Comment on above: Performed By: #### L IVER, LDH, BMP #### [facility] [address] [place] [address] Dr. Esthela Stevens Chloride [Moles/Vol] 102 mmol/L Normal 98-107 [facility] Comment on above: Performed By: #### L IVER, LDH, BMP #### [facility] [address] [place] [address] Dr. Esthela Stevens CO2 [Moles/Vol] 27.0 mmol/L Normal 21.0-32.0 [facility] Comment on above: Performed By: #### L IVER, LDH, BMP #### [facility] [address] [place] [address] Dr. Esthela Stevens Creatinine [Mass/Vol] 0.61 mg/dL Normal 0.55-1.02 [facility] Comment on above: Performed By: #### L IVER, LDH, BMP #### [facility] [address] [place] [address] Dr. Esthela Stevens EGFR-AF MICRONESIAN >60 Normal >=60 [facility] Comment on above: Performed By: #### L IVER, LDH, BMP #### [facility] [address] [place] [address] Dr. Esthela Stevens EGFR-NON AF MICRONESIAN >60 Normal >=60 [facility] Comment on above: Performed By: #### L IVER, LDH, BMP #### [facility] [address] [place] [address] Dr. Esthela Stevens Globulin (S) [Mass/Vol] 3.7 g/dL Normal [facility] Comment on above: Performed By: #### L IVER, LDH, BMP #### [facility] [address] [place] [address] Dr. Estehla Stevens Glucose [Mass/Vol] 88 mg/dL Normal 74-106 [facility] Comment on above: Performed By: #### L IVER, LDH, BMP #### [facility] [address] [place] [address] Dr. Esthela Stevens Potassium [Moles/Vol] 4.0 mmol/L Normal 3.5-5.1 [facility] Comment on above: Performed By: #### L IVER, LDH, BMP #### [facility] [address] [place] [address] Dr. Esthela Stevens Protein [Mass/Vol] 7.9 g/dL Normal 6.4-8.2 [facility] Comment on above: Performed By: #### L IVER, LDH, BMP #### [facility] [address] [place] [address] Dr. Esthela Stevens Sodium [Moles/Vol] 140 mmol/L Normal 136-145 [facility] Comment on above: Performed By: #### L IVER, LDH, BMP #### [facility] [address] [place] [address] Dr. Esthela Stevens Urea nitrogen [Mass/Vol] 4.0 mg/dL Critically low 7.0-18.0 [facility] Comment on above: Performed By: #### L IVER, LDH, BMP #### [facility] [address] [place] [address] Dr. Esthela Stevens Urea nitrogen/Creatinine [Mass ratio] 6.6 mg/mg Normal [facility] Comment on above: Performed By: #### L IVER, LDH, BMP #### [facility] [address] [place] [address] Dr. Esthela Stevens TSHon 08-31-2022 TSH 1.348 uIU/mL Normal 0.358-3.740 [facility] Comment on above: Performed By: #### L IVER, LDH, BMP #### [facility] [address] [place] [address] Dr. Esthela Stevens URIC ACID SERUMon 08-31-2022 Urate [Mass/Vol] 4.4 mg/dL Normal 2.6-6.0 [facility] Comment on above: Performed By: #### L IVER, LDH, BMP #### [facility] [address] [place] [address] Dr. Esthela Stevens VITAMIN D 25 OHon 08-31-2022 VIT D 25-OH 18.0 ng/mL Normal [facility] Comment on above: Performed By: #### L IVER, LDH, BMP #### [facility] [address] [place] [address] Dr. Esthela Stevens VIT D RANGES SEE BELOW [facility] Comment on above: Result Comment: <20 ng/mL Vit D deficient 20 - <30 ng/mL Vit D insufficient 30 - 100 ng/mL Vit D sufficient >100 ng/mL Potential Toxicity Performed By: #### L IVER, LDH, BMP #### [facility] [address] [place] [address] Dr. Esthela Stevens LIVER PROFILEon 08-24-2022 Albumin [Mass/Vol] 3.9 g/dL Normal 3.4-5.0 [facility] Comment on above: Performed By: #### L IVER, LDH, BMP #### [facility] [address] [place] [address] Dr. Esthela Stevens Albumin/Globulin [Mass ratio] 1.0 {ratio} Normal [facility] Comment on above: Performed By: #### L IVER, LDH, BMP #### [facility] [address] [address] [address] Esthela Stevens ALP [Catalytic activity/Vol] 70 U/L Normal 46-116 [facility] Comment on above: Performed By: #### L IVER, LDH, BMP #### [facility] [address] [address] [address] Esthela Stevens ALT [Catalytic activity/Vol] 44 U/L Normal 14-59 [facility] Comment on above: Performed By: #### L IVER, LDH, BMP #### [facility] [address] [place] [address] Dr. Esthela Stevens AST [Catalytic activity/Vol] 22 U/L Normal 15-37 [facility] Comment on above: Performed By: #### L IVER, LDH, BMP #### [facility] [address] [place] [address] Dr. Esthela Stevens BILI, CONJUGATED 0.1 mg/dL Normal 0.0-0.2 [facility] Comment on above: Performed By: #### L IVER, LDH, BMP #### [facility] [address] [address] [address] Esthela Stevens Bilirubin [Mass/Vol] 0.3 mg/dL Normal 0.2-1.0 [facility] Comment on above: Performed By: #### L IVER, LDH, BMP #### [facility] [address] [address] [address] Esthela Stevens Globulin (S) [Mass/Vol] 3.9 g/dL Normal [facility] Comment on above: Performed By: #### L IVER, LDH, BMP #### [facility] [address] [address] [address] Esthela Stevens Protein [Mass/Vol] 7.8 g/dL Normal 6.4-8.2 [facility] Comment on above: Performed By: #### L IVER, LDH, BMP #### [facility] [address] [address] [address] Esthela Stevens CREAT/GFRon 08-19-2022 Creatinine [Mass/Vol] 0.85 mg/dL 0.50 - 1.20 mg/dL [facility] GFR/1.73 sq M.predicted CKD-EPI (S/P/Bld) [Vol rate/Area] - PINF [facility] Comment on above: Reported eGFR is bas ed on the CKD-EPI 2020 equation using creatinine, age, and sex. Interpretation and review of laboratory results Normal [facility] Test performed at address of the patient encounter. 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 [facility] Radiology Study observation (narrative) [facility] PT Skull base to mid-thighOr dered By: Hawa Pichardo on 08-19-2022 [facility] Work Phone: CBC AUTO DIFFon 08-12-2022 BASO # 0.1 103/ul Normal 0.0-0.1 [facility] Comment on above: Performed By: #### L IVER, LDH, BMP #### [facility] [address] [place] [address] Dr. Esthela Stevens Basophils/100 WBC (Bld) 1.0 % Normal 0.2-2.0 [facility] Comment on above: Performed By: #### L IVER, LDH, BMP #### [facility] [address] [place] [address] Dr. Esthela Stevens EO # 0.1 103/ul Normal 0.0-0.7 [facility] Comment on above: Performed By: #### L IVER, LDH, BMP #### [facility] [address] [place] [address] Dr. Esthela Stevens Eosinophils/100 WBC (Bld) 1.6 % Normal 0.9-7.0 [facility] Comment on above: Performed By: #### L IVER, LDH, BMP #### [facility] [address] [place] [address] Dr. Esthela Stevens Erythrocyte distribution width (RBC) [Ratio] 12.5 % Normal 11.0-15.0 [facility] Comment on above: Performed By: #### L IVER, LDH, BMP #### [facility] [address] [place] [address] Dr. Esthela Stevens Hematocrit (Bld) [Volume fraction] 40.1 % Normal 36.0-48.0 [facility] Comment on above: Performed By: #### L IVER, LDH, BMP #### [facility] [address] [place] [address] Dr. Esthela Stevens Hemoglobin (Bld) [Mass/Vol] 12.3 g/dL Normal 12.0-16.0 [facility] Comment on above: Performed By: #### L IVER, LDH, BMP #### [facility] [address] [place] [address] Dr. Esthela Stevens IG # 0.01 10e3/ul Normal 0.00-0.03 [facility] Comment on above: Performed By: #### L IVER, LDH, BMP #### [facility] [address] [place] [address] Dr. Esthela Stevens IG % 0.2 % Normal 0.0-0.5 [facility] Comment on above: Performed By: #### L IVER, LDH, BMP #### [facility] [address] [place] [address] Dr. Esthela Stevens LYMPH # 1.8 103/ul Normal 1.2-3.8 [facility] Comment on above: Performed By: #### L IVER, LDH, BMP #### [facility] [address] [place] [address] Dr. Esthela Stevens Lymphocytes/100 WBC (Bld) 28.0 % Normal 20.5-60.0 [facility] Comment on above: Performed By: #### L IVER, LDH, BMP #### [facility] [address] [place] [address] Dr. Esthela Stevens MANUAL DIFF REQ NO Normal [facility] Comment on above: Performed By: #### L IVER, LDH, BMP #### [facility] [address] [place] [address] Dr. Esthela Stevens MCH (RBC) [Entitic mass] 26.8 pg Normal 26.7-34.0 [facility] Comment on above: Performed By: #### L IVER, LDH, BMP #### [facility] [address] [place] [address] Dr. Esthela Stevens MCHC (RBC) [Mass/Vol] 30.7 g/dL Normal 29.9-35.2 [facility] Comment on above: Performed By: #### L IVER, LDH, BMP #### [facility] [address] [place] [address] Dr. Esthela Stevens MCV (RBC) [Entitic vol] 87.4 fL Normal 81.0-99.0 [facility] Comment on above: Performed By: #### L IVER, LDH, BMP #### [facility] [address] [place] [address] Dr. Esthela Stevens MONO # 0.6 103/ul Normal 0.3-0.8 [facility] Comment on above: Performed By: #### L IVER, LDH, BMP #### [facility] [address] [place] [address] Dr. Esthela Stevens Monocytes/100 WBC (Bld) 9.4 % Normal 1.7-12.0 [facility] Comment on above: Performed By: #### L IVER, LDH, BMP #### [facility] [address] [place] [address] Dr. Esthela Stevens NEUT # 3.8 103/ul Normal 1.4-6.5 [facility] Comment on above: Performed By: #### L IVER, LDH, BMP #### [facility] [address] [place] [address] Dr. Esthela Stevens Neutrophils/100 WBC (Bld) 59.8 % Normal 43.0-75.0 [facility] Comment on above: Performed By: #### L IVTOREY LDH, BMP #### [facility] [address] [place] [address] Dr. Esthela Stevens Platelet mean volume (Bld) [Entitic vol] 9.6 fL Normal 9.5-13.5 [facility] Comment on above: Performed By: #### L IVTOREY LDH, BMP #### [facility] [address] [place] [address] Dr. Esthela Stevens PLT 341 103/ul Normal 150-450 [facility] Comment on above: Performed By: #### L JJ LDH, BMP #### [facility] [address] [place] [address] Dr. Esthela Stevens RBC 4.59 106/ul Normal 4.20-5.40 [facility] Comment on above: Performed By: #### L JJ LDH, BMP #### [facility] [address] [place] [address] Dr. Esthela Stevens WBC 6.3 103/ul Normal 4.0-11.0 [facility] Comment on above: Performed By: #### L JJ LDH, BMP #### [facility] [address] [place] [address] ABD/PELV W CONon [...] TIMMY SHAY Date: 2022-08-12 17:04 Normal [facility] CULTURE URINEon 08-12-2022 CULTURE URINE Culture Observations: MODERATE GROWTH OF MIXED GENITAL SUNITA. NO POTENTIAL PATHOGENS SEEN. Normal [facility] Comment on above: Performed By: #### L IVER, LDH, BMP #### [facility] [address], [place] [address] Dr. Esthela Stevens ER URINE PROFILEon 3 Bilirubin Ql (U) Negative Normal NEGATIVE [facility] [place] [facility] Comment on above: Performed By: #### P REG #### [facility] [address], [place] [address] Dr. Esthela Stevens Clarity (U) CLEAR Normal CLEAR [facility] Comment on above: Performed By: #### P REG #### [facility] [address] [place] [address] Dr. Esthela Stevens Color (U) LT. YELLOW Normal YELLOW [facility] Comment on above: Performed By: #### P REG #### [facility] [address] [place] [address] Dr. Esthela ARGUELLES A micrscopic examination will be performed if indicated. Normal [facility] Comment on above: Performed By: #### P REG #### [facility] [address] [place] [address] Dr. Esthela Stevens Glucose Ql (U) Negative Normal NEGATIVE [facility] Comment on above: Performed By: #### P REG #### [facility] [address] [place] [address] Dr. Esthela Stevens Hemoglobin Ql (U) Negative Normal NEGATIVE [facility] Comment on above: Performed By: #### P REG #### [facility] [address] [place] [address] Dr. Esthela Stevens Ketones Ql (U) Negative Normal NEGATIVE [facility] Comment on above: Performed By: #### P REG #### [facility] [address] [place] [address] Dr. Esthela Stevens LEUKOCYTES SMALL Abnormal NEGATIVE [facility] Comment on above: Performed By: #### P REG #### [facility] [address] [place] [address] Dr. Esthela Stevens Nitrite Ql (U) Negative Normal NEGATIVE [facility] Comment on above: Performed By: #### P REG #### [facility] [address] [place] [address] Dr. Esthela Stevens pH (U) 7.0 [pH] Normal 5-9 [facility] Comment on above: Performed By: #### P REG #### [facility] [address] [place] [address] Dr. Esthela Stevens SPEC GRAVITY 1.020 Normal 1.005-<=1.025 [facility] Comment on above: Performed By: #### P REG #### [facility] [address] [place] [address] Dr. Esthela Stevens UA PROTEIN Negative Normal NEGATIVE/ TRACE [facility] Comment on above: Performed By: #### P REG #### [facility] [address] [place] [address] Dr. Esthela Stevens UR MICRO IND INDICATED Normal [facility] Comment on above: Performed By: #### P REG #### [facility] [address] [place] [address] Dr. Esthela Stevens Urobilinogen Qn (U) 0.2 {Emeka'U}/dL Normal 0.2 - 1. 0 [facility] Comment on above: Performed By: #### P REG #### [facility] [address] [place] [address] Dr. Esthela Stevens LIPASEon 08-12-2022 Lipase [Catalytic activity/Vol] 75.0 U/L Normal 73.0-393.0 [facility] Comment on above: Performed By: #### P REG #### [facility] [address] [place] [address] Dr. Esthela Stevens URon 08-12-2022 , QUAL Negative Normal NEGATIVE [facility] Comment on above: Performed By: #### P REG #### [facility] [address] [place] [address] Dr. Esthela Stevens PROF 14(COMP METB)on 023 Albumin [Mass/Vol] 4.0 g/dL Normal 3.4-5.0 [facility] Comment on above: Performed By: #### P REG #### [facility] [address] [place] [address] Dr. Esthela Stevens Albumin/Globulin [Mass ratio] 1.1 {ratio} Normal [facility] Comment on above: Performed By: #### P REG #### [facility] [address] [place] [address] Dr. Esthela Stevens ALP [Catalytic activity/Vol] 73 U/L Normal 46-116 [facility] Comment on above: Performed By: #### P REG #### [facility] [address] [place] [address] Dr. Esthela Stevens ALT [Catalytic activity/Vol] 82 U/L Critically high 14-59 [facility] Comment on above: Performed By: #### P REG #### [facility] [address] [place] [address] [address] Esthela Stevens Anion gap [Moles/Vol] 12.0 mmol/L Normal [facility] Comment on above: Performed By: #### P REG #### [facility] [address] [address] [address] Esthela Stevens AST [Catalytic activity/Vol] 33 U/L Normal 15-37 [facility] Comment on above: Performed By: #### P REG #### [facility] [address] [address] [address] Esthela Stevens Bilirubin [Mass/Vol] 0.2 mg/dL Normal 0.2-1.0 [facility] Comment on above: Performed By: #### P REG #### [facility] [address] [address] [address] Esthela Stevens Calcium [Mass/Vol] 9.4 mg/dL Normal 8.5-10.1 [facility] Comment on above: Performed By: #### P REG #### [facility] [address] [address] [address] Esthela Stevens Chloride [Moles/Vol] 102 mmol/L Normal 98-107 [facility] Comment on above: Performed By: #### P REG #### [facility] [address] [address] [address] Esthela Stevens CO2 [Moles/Vol] 27.8 mmol/L Normal 21.0-32.0 [facility] [place] [facility] Comment on above: Performed By: #### P REG #### [facility] [address] [address] [address] Esthela Stevens Creatinine [Mass/Vol] 0.69 mg/dL Normal 0.55-1.02 [facility] Comment on above: Performed By: #### P REG #### [facility] [address] [address] [address] Esthela Stevens EGFR-AF MICRONESIAN >60 Normal >=60 [facility] [place] [facility] Comment on above: Performed By: #### P REG #### [facility] [address] [address] [address] Esthela Stevens EGFR-NON AF MICRONESIAN >60 Normal >=60 [facility] Comment on above: Performed By: #### P REG #### [facility] [address] [address] [address] Esthela Stevnes Globulin (S) [Mass/Vol] 3.5 g/dL Normal [facility] Comment on above: Performed By: #### P REG #### [facility] [address] [address] [address] Esthela Stevens Glucose [Mass/Vol] 109 mg/dL Critically high 74-106 [facility] Comment on above: Performed By: #### P REG #### [facility] [address] [place] [address] Dr. Esthela Stevens Potassium [Moles/Vol] 3.8 mmol/L Normal 3.5-5.1 [facility] Comment on above: Performed By: #### P REG #### [facility] [address] [place] [address] Dr. Esthela Stevens Protein [Mass/Vol] 7.5 g/dL Normal 6.4-8.2 [facility] Comment on above: Performed By: #### P REG #### [facility] [address] [place] [address] Dr. Esthela Stevens Sodium [Moles/Vol] 138 mmol/L Normal 136-145 [facility] Comment on above: Performed By: #### P REG #### [facility] [address] [address] [address] Esthela Stevens Urea nitrogen [Mass/Vol] 6.0 mg/dL Critically low 7.0-18.0 [facility] Comment on above: Performed By: #### P REG #### [facility] [address] [place] [address] Dr. Esthela Stevens Urea nitrogen/Creatinine [Mass ratio] 8.7 mg/mg Normal [facility] Comment on above: Performed By: #### P REG #### [facility] [address] [address] [address] Esthela Stevens URINE MICROSCOPIC ONLYon BACTERIA SMALL Abnormal NONE SEEN [facility] Comment on above: Performed By: #### P REG #### [facility] [address] [place] [address] Dr. Esthela Stevens Bacteria identified Cx Nom (U) INDICATED Normal [facility] Comment on above: Performed By: #### P REG #### [facility] [address] [place] [address] Dr. Esthela Stevens CAST NONE SEEN Normal NONE SEEN [facility] Comment on above: Performed By: #### P REG #### [facility] [address] [place] [address] Dr. Esthela Stevens Crystals LM Nom (Urine sed) NONE SEEN Normal NONE SEEN [facility] Comment on above: Performed By: #### P REG #### [facility] [address] [place] [address] Dr. Esthela Stevens Epithelial cells LM Ql (Urine sed) MODERATE Abnormal NONE SEEN /RARE [facility] Comment on above: Performed By: #### P REG #### [facility] [address] [place] [address] Dr. Esthela Stevens MUCOUS NONE SEEN Normal NONE SEEN [facility] Comment on above: Performed By: #### P REG #### [facility] [address] [place] [address] Dr. Esthela Stevens RBC NONE SEEN Abnormal 0-2 [facility] Comment on above: Performed By: #### P REG #### [facility] [address] [place] [address] Dr. Esthela Stevens WBC 2-5 Abnormal NONE SEEN [facility] Comment on above: Performed By: #### P REG #### [facility] [address] [place] [address] Dr. Esthela Stevens PAP ACOG PANEL 2: 21 to 29on 08-11-2022 . . Normal [facility] Comment on above: Performed By: #### [id number] #### [facility] [address] [place] [address] Dr. Esthela Stevens Age Gdln ACOG Testing 21-29 Normal [facility] Comment on above: Performed By: #### [id number] #### [facility] [address] [place] [address] Dr. Esthela Stevens DIAGNOSIS: Comment Abnormal [facility] Comment on above: Result Comment: EPIT HELIAL CELL ABNORMALITY. ATYPICAL SQUAMOUS CELLS OF UNDETERMINED SIGNIFICANCE (ASC-US). Performed By: #### [id number] #### [facility] [address] [place] [address] Dr. Esthela Stevens Electronically signed by: Comment Normal [facility] Comment on above: Result Comment: Zoe Moncada MD, Pathologist Performed By: #### [id number] #### [facility] [address] [place] [address] Dr. Esthela Stevens HPV Aptima Negative Normal Negative [facility] Comment on above: Result Comment: This nucleic acid amplification test detects fourteen high-risk HPV types (16,18,31,33,35,39,45,51,52,56,58,59,66,68) without differentiation. Performed By: #### [id number] #### [facility] [address] [place] [address] Dr. Esthela Stevens Methodology: Comment Normal [facility] Comment on above: Result Comment: This liquid based ThinPrep(R) pap test was screened with the use of an image guided system. Performed By: #### [id number] #### [facility] [address] [place] [address] Dr. Esthela Stevens Note: Comment Normal [facility] Comment on above: Result Comment: The Pap smear is a screening test designed to aid in the detection of premalignant and malignant conditions of the uterine cervix. It is not a diagnostic procedure and should not be used as the sole means of detecting cervical cancer. Both false-positive and false-negative reports do occur. . Performed By: #### [id number] #### [facility] [address] [place] [address] Dr. Esthela Stevens Pathologist Provided ICD10 Comment Normal [facility] Comment on above: Result Comment: [id number]. [id number] Performed By: #### [id number] #### [facility] [address] [place] [address] Dr. Esthela Stevens Performed by: Comment Normal [facility] Comment on above: Result Comment: Nevin Ardon, [employer] Furniture Rep[employer]cer (ASCP) Performed By: #### [id number] #### [facility] [address] [place] [address] Dr. Esthela Stevens Reflex Criteria: Comment Normal [facility] [place] [facility] Comment on above: Result Comment: See below for HPV testing results. . Performed By: #### [id number] #### [facility] [address] [place] [address] Dr. Esthela Stevens Specimen adequacy: Comment Normal [facility] Comment on above: Result Comment: Sati sfactory for evaluation. Endocervical and/or squamous metaplastic cells (endocervical component) are present. Performed By: #### [id number] #### [facility] [address] [place] [address] Dr. Esthela Stevens GI PANEL (PCR)on 06-03-2022 Adenovirus F 40/41 Not detected Normal NOT DETECTED [facility] Comment on above: Performed By: #### P REG #### [facility] [address] [place] [address] Dr. Esthela Stevens Astrovirus Not detected Normal NOT DETECTED [facility] Comment on above: Performed By: #### P REG #### [facility] [address] [place] [address] Dr. Esthela Stevens C. Diff toxin A/B Detected Critically abnormal NOT DETECTED [facility] Comment on above: Performed By: #### P REG #### [facility] [address] [place] [address] Dr. Esthela Stevens Campylobacter Not detected Normal NOT DETECTED [facility] Comment on above: Performed By: #### P REG #### [facility] [address] [place] [address] Dr. Esthela Stevens Cryptosporidium Not detected Normal NOT DETECTED [facility] Comment on above: Performed By: #### P REG #### [facility] [address] [place] [address] Dr. Esthela Stevens Cyclos. Cayetanensis Not detected Normal NOT DETECTED [facility] Comment on above: Performed By: #### P REG #### [facility] [address] [place] [address] Dr. Esthela Stevens E. Coli O157 Not Applicable Normal Not Applicable [facility] Comment on above: Performed By: #### P REG #### [facility] [address] [place] [address] Dr. Esthela Stevens E. histolytica Not detected Normal NOT DETECTED [facility] Comment on above: Performed By: #### P REG #### [facility] [address] [place] [address] Dr. Esthela Stevens EAEC Not detected Normal NOT DETECTED [facility] Comment on above: Performed By: #### P REG #### [facility] [address] [place] [address] Dr. Esthela Stevens EIEC Not detected Normal NOT DETECTED [facility] Comment on above: Performed By: #### P REG #### [facility] [address] [place] [address] Dr. Esthela Stevens EPEC Not detected Normal NOT DETECTED [facility] Comment on above: Performed By: #### P REG #### [facility] [address] [place] [address] Dr. Esthela Stevens ETEC Not detected Normal NOT DETECTED [facility] Comment on above: Performed By: #### P REG #### [facility] [address] [place] [address] Dr. Esthela Stevens G. Lamblia Not detected Normal NOT DETECTED [facility] Comment on above: Performed By: #### P REG #### [facility] [address] [place] [address] Dr. Esthela MADISONANEL CONTROLS PASSED Normal [facility] Comment on above: Performed By: #### P REG #### [facility] [address] [place] [address] Dr. Esthela Stevens GIPNL JON HEADER GI PANEL BACTERIA Normal [facility] Comment on above: Performed By: #### P REG #### [facility] [address] [address] [address] Esthela LARA ECOLI GI PANEL DIARRHEAGENIC E.COLI / SHIGELLA Normal [facility] Comment on above: Performed By: #### P REG #### [facility] [address] [address] [address] Esthela LARA INFO SEE BELOW Normal [facility] Comment on above: Result Comment: EAEC - Enteroaggregative E. Coli EPEC- Enteropathogenic E. Coli ETEC- Enterotoxigenic E. Coli lt/st STEC- Shigella-like toxin-producing E. Coli stx1/stx2 EIEC- Shigella/Enteroinvasive E. Coli Performed By: #### P REG #### [facility] [address] [address] [address] Esthela LARA PARASITES GI PANEL PARASITES Normal [facility] Comment on above: Performed By: #### P REG #### [facility] [address] [address] [address] Esthela ALRA VIRUS GI PANEL VIRUSES Normal [facility] Comment on above: Performed By: #### P REG #### [facility] [address] [address] [address] Esthela Stevens Norovirus GI/GII Not detected Normal NOT DETECTED [facility] Comment on above: Performed By: #### P REG #### [facility] [address] [address] [address] Esthela Stevens P. Shigelloides Not detected Normal NOT DETECTED [facility] Comment on above: Performed By: #### P REG #### [facility] [address] [address] [address] Esthela Stevens Rotavirus A Not detected Normal NOT DETECTED [facility] Comment on above: Performed By: #### P REG #### [facility] [address] [address] [address] Esthela Stevens Salmonella Not detected Normal NOT DETECTED [facility] Comment on above: Performed By: #### P REG #### [facility] [address] [address] [address] Esthela Stevens Sapovirus Not detected Normal NOT DETECTED [facility] Comment on above: Performed By: #### P REG #### [facility] [address] [place] [address] Dr. Esthela Stevens STEC Not detected Normal NOT DETECTED [facility] Comment on above: Performed By: #### P REG #### [facility] [address] [place] [address] Dr. Esthela Stevens Vibrio Not detected Normal NOT DETECTED [facility] Comment on above: Performed By: #### P REG #### [facility] [address] [place] [address] Dr. Esthela Stevens Vibrio Cholera Not detected Normal NOT DETECTED [facility] Comment on above: Performed By: #### P REG #### [facility] [address] [place] [address] Dr. Esthela Stevens Y. Enterocolitica Not detected Normal NOT DETECTED [facility] Comment on above: Performed By: #### P REG #### [facility] [address] [place] [address] Dr. Esthela Stevens CBC AUTO DIFFon 06-02-2022 BASO # 0.1 103/ul Normal 0.0-0.1 [facility] Comment on above: Performed By: #### L IVER, LDH, BMP #### [facility] [address] [place] [address] Dr. Esthela Stevens Basophils/100 WBC (Bld) 0.6 % Normal 0.2-2.0 [facility] Comment on above: Performed By: #### L IVER, LDH, BMP #### [facility] [address] [place] [address] Dr. Esthela Stevens EO # 0.5 103/ul Normal 0.0-0.7 [facility] Comment on above: Performed By: #### L IVER, LDH, BMP #### [facility] [address] [place] [address] Dr. Esthela Stevens Eosinophils/100 WBC (Bld) 4.3 % Normal 0.9-7.0 [facility] Comment on above: Performed By: #### L IVER, LDH, BMP #### [facility] [address] [place] [address] Dr. Esthela Stevens Erythrocyte distribution width (RBC) [Ratio] 13.0 % Normal 11.0-15.0 [facility] Comment on above: Performed By: #### L IVER, LDH, BMP #### [facility] [address] [place] [address] Dr. Esthela Stevens Hematocrit (Bld) [Volume fraction] 33.6 % Critically low 36.0-48.0 [facility] Comment on above: Performed By: #### L IVER, LDH, BMP #### [facility] [address] [place] [address] Dr. Esthela Stevens Hemoglobin (Bld) [Mass/Vol] 10.9 g/dL Critically low 12.0-16.0 [facility] Comment on above: Performed By: #### L IVER, LDH, BMP #### [facility] [address] [place] [address] Dr. Esthela Stevens IG # 0.05 10e3/ul Critically high 0.00-0.03 [facility] Comment on above: Performed By: #### L IVER, LDH, BMP #### [facility] [address] [place] [address] Dr. Esthela Stevens IG % 0.5 % Normal 0.0-0.5 [facility] Comment on above: Performed By: #### L IVER, LDH, BMP #### [facility] [address] [place] [address] Dr. Esthela Stevens LYMPH # 2.4 103/ul Normal 1.2-3.8 [facility] Comment on above: Performed By: #### L IVER, LDH, BMP #### [facility] [address] [place] [address] Dr. Esthela Stevens Lymphocytes/100 WBC (Bld) 22.4 % Normal 20.5-60.0 [facility] Comment on above: Performed By: #### L IVER, LDH, BMP #### [facility] [address] [place], [place] [id number] Dr. Esthela Stevens MANUAL DIFF REQ NO Normal [facility] Comment on above: Performed By: #### L IVER, LDH, BMP #### [facility] [address] [place] [address] Dr. Esthela Stevens MCH (RBC) [Entitic mass] 26.9 pg Normal 26.7-34.0 [facility] Comment on above: Performed By: #### L IVER, LDH, BMP #### [facility] [address] [place] [address] Dr. Esthela Stevens MCHC (RBC) [Mass/Vol] 32.4 g/dL Normal 29.9-35.2 [facility] Comment on above: Performed By: #### L IVER, LDH, BMP #### [facility] [address] [place] [address] Dr. Esthela Stevens MCV (RBC) [Entitic vol] 83.0 fL Normal 81.0-99.0 [facility] Comment on above: Performed By: #### L IVER, LDH, BMP #### [facility] [address] [place] [address] Dr. Esthela Stevens MONO # 0.8 103/ul Normal 0.3-0.8 [facility] Comment on above: Performed By: #### L IVER, LDH, BMP #### [facility] [address] [place] [address] Dr. Esthela Stevens Monocytes/100 WBC (Bld) 7.1 % Normal 1.7-12.0 [facility] Comment on above: Performed By: #### L IVER, LDH, BMP #### [facility] [address] [place] [address] Dr. Esthela Stevens NEUT # 7.0 103/ul Critically high 1.4-6.5 [facility] Comment on above: Performed By: #### L IVER, LDH, BMP #### [facility] [address] [place] [address] Dr. Esthela Stevens Neutrophils/100 WBC (Bld) 65.1 % Normal 43.0-75.0 [facility] Comment on above: Performed By: #### L IVER, LDH, BMP #### [facility] [address] [place] [address] Dr. Esthela Stevens Platelet mean volume (Bld) [Entitic vol] 8.9 fL Critically low 9.5-13.5 [facility] Comment on above: Performed By: #### L IVER, LDH, BMP #### [facility] [address] [place] [address] Dr. Esthela Stevens PLT 519 103/ul Critically high 150-450 [facility] Comment on above: Performed By: #### L IVER, LDH, BMP #### [facility] [address] [place] [address] Dr. Esthela Stevens RBC 4.05 106/ul Critically low 4.20-5.40 [facility] Comment on above: Performed By: #### L IVER, LDH, BMP #### [facility] [address] [place] [address] Dr. Esthela Stevens WBC 10.8 103/ul Normal 4.0-11.0 [facility] Comment on above: Performed By: #### L IVER, LDH, BMP #### [facility] [address] [place] [address] Dr. Esthela Stevens PROF 14(COMP METB)on 022 Albumin [Mass/Vol] 3.7 g/dL Normal 3.4-5.0 [facility] Comment on above: Performed By: #### L IVER, LDH, BMP #### [facility] [address] [place] [address] Dr. Esthela Stevens Albumin/Globulin [Mass ratio] 1.0 {ratio} Normal [facility] Comment on above: Performed By: #### L IVER, LDH, BMP #### [facility] [address] [place] [address] Dr. Esthela Stevens ALP [Catalytic activity/Vol] 75 U/L Normal 46-116 [facility] Comment on above: Performed By: #### L IVER, LDH, BMP #### [facility] [address] [place] [address] Dr. Esthela Stevens ALT [Catalytic activity/Vol] 95 U/L Critically high 14-59 [facility] Comment on above: Performed By: #### L IVER, LDH, BMP #### [facility] [address] [address] [address] Esthela Stevens Anion gap [Moles/Vol] 13.4 mmol/L Normal [facility] Comment on above: Performed By: #### L IVER, LDH, BMP #### [facility] [address] [address] [address] Esthela Stevens AST [Catalytic activity/Vol] 31 U/L Normal 15-37 [facility] Comment on above: Performed By: #### L IVER, LDH, BMP #### [facility] [address] [place] [address] Dr. Esthela Stevens Bilirubin [Mass/Vol] 0.1 mg/dL Critically low 0.2-1.0 [facility] Comment on above: Performed By: #### L IVER, LDH, BMP #### [facility] [address] [address] [address] Esthela Stevens Calcium [Mass/Vol] 9.3 mg/dL Normal 8.5-10.1 [facility] Comment on above: Performed By: #### L IVER, LDH, BMP #### [facility] [address] [place] [address] Dr. Esthela Stevens Chloride [Moles/Vol] 102 mmol/L Normal 98-107 [facility] Comment on above: Performed By: #### L IVER, LDH, BMP #### [facility] [address] [address] [address] Esthela Stevens CO2 [Moles/Vol] 26.4 mmol/L Normal 21.0-32.0 [facility] Comment on above: Performed By: #### L IVER, LDH, BMP #### [facility] [address] [address] [address] Esthela Stevens Creatinine [Mass/Vol] 0.67 mg/dL Normal 0.55-1.02 [facility] Comment on above: Performed By: #### L IVER, LDH, BMP #### [facility] [address] [address] [address] Esthela Stevens EGFR-AF MICRONESIAN >60 Normal >=60 [facility] Comment on above: Performed By: #### L IVER, LDH, BMP #### [facility] [address] [address] [address] Esthela Stevens EGFR-NON AF MICRONESIAN >60 Normal >=60 [facility] Comment on above: Performed By: #### L IVER, LDH, BMP #### [facility] [address] [address] [address] Esthela Stevens Globulin (S) [Mass/Vol] 3.7 g/dL Normal [facility] Comment on above: Performed By: #### L IVER, LDH, BMP #### [facility] [address] [place] [address] Dr. Esthela Stevens Glucose [Mass/Vol] 101 mg/dL Normal 74-106 [facility] Comment on above: Performed By: #### L IVER, LDH, BMP #### [facility] [address] [address] [address] Esthela Stevens Potassium [Moles/Vol] 3.8 mmol/L Normal 3.5-5.1 [facility] Comment on above: Performed By: #### L IVER, LDH, BMP #### [facility] [address] [place] [address] Dr. Esthela Stevens Protein [Mass/Vol] 7.4 g/dL Normal 6.4-8.2 [facility] Comment on above: Performed By: #### L IVER, LDH, BMP #### [facility] [address] [place] [address] Dr. Esthela Stevens Sodium [Moles/Vol] 138 mmol/L Normal 136-145 [facility] Comment on above: Performed By: #### L IVER, LDH, BMP #### [facility] [address] [address] [address] Esthela Stevens Urea nitrogen [Mass/Vol] 12.0 mg/dL Normal 7.0-18.0 [facility] Comment on above: Performed By: #### L IVER, LDH, BMP #### [facility] [address] [address] [address] Esthela Stevens Urea nitrogen/Creatinine [Mass ratio] 17.9 mg/mg Normal [facility] Comment on above: Performed By: #### L IVER, LDH, BMP #### [facility] [id number] Esthela Stevens CALCIUMon 05-29-2022 Calcium [Mass/Vol] 9.0 mg/dL 8.6 - 10. 5 mg/dL [facility] CBC,PLATELETSon 05-29-2022 Erythrocyte distribution width (RBC) [Ratio] 13.1 % 10.8 - 14.9 % [facility] Hematocrit (Bld) [Volume fraction] 33.0 % Low 34.9 - 44.3 % [facility] Hemoglobin (Bld) [Mass/Vol] 10.5 g/dL Low 11.4 - 15.2 g/dL [facility] Interpretation and review of laboratory results Abnormal [facility] MCH (RBC) [Entitic mass] 27.1 pg 25.9 - 33.9 pg [facility] MCHC (RBC) [Mass/Vol] 31.8 g/dL 31.4 - 35.9 g/dL [facility] MCV (RBC) [Entitic vol] 85.1 fL 79.6 - 97.7 fL [facility] Platelet mean volume (Bld) [Entitic vol] 9.1 fL 8.5 - 12.2 fL [facility] Platelets (Bld) [#/Vol] 423 10*3/uL High 150 - 393 K/uL [facility] RBC (Bld) [#/Vol] 3.88 10*6/uL Low [facility] WBC (Bld) [#/Vol] 7.36 10*3/uL 3.99 - 11. 19 K/uL [facility] CHEM 7 (LYTES,BUN,CREA,GLUC) on 05-29-2022 Anion gap [Moles/Vol] 13 mmol/L 7 - 17 mmol/L [facility] Chloride [Moles/Vol] 104 mmol/L 98 - 10 8 mmol/L [facility] CO2 [Moles/Vol] 26 mmol/L 21 - 31 mmol/L [facility] Creatinine [Mass/Vol] 0.66 mg/dL 0.50 - 1.20 mg/dL [facility] GFR/1.73 sq M.predicted CKD-EPI (S/P/Bld) [Vol rate/Area] - PINF [facility] Comment on above: Reported eGFR is bas ed on the CKD-EPI 2020 equation using creatinine, age, and sex. Glucose [Mass/Vol] 93 mg/dL 70 - 99 mg/dL [facility] Osmolality Calc [Osmolality] 288 [facility] Potassium [Moles/Vol] 4.2 mmol/L 3.5 - 5.0 mmol/L [facility] Sodium [Moles/Vol] 139 mmol/L 135 - 145 mmol/L [facility] Urea nitrogen [Mass/Vol] 5 mg/dL Low 7 - 25 mg/dL [facility] Urea nitrogen/Creatinine [Mass ratio] 8 mg/mg [facility] MAGNESIUMon 05-29-2022 Magnesium [Mass/Vol] 2.1 mg/dL 1.6 - 2 .6 mg/dL [facility] No Panel Informationon 05-29 Interpretation and review of laboratory results Abnormal [facility] Interpretation and review of laboratory results Normal [facility] PHOSPHATE, INORGANICon 05-29 Phosphate [Mass/Vol] 4.8 mg/dL High 2.2 - 4 .6 mg/dL [facility] CALCIUMon 05-28-2022 Calcium [Mass/Vol] 8.6 mg/dL 8.6 - 10. 5 mg/dL [facility] CBC,PLATELETSon 05-28-2022 Erythrocyte distribution width (RBC) [Ratio] 13.0 % 10.8 - 14.9 % [facility] Hematocrit (Bld) [Volume fraction] 30.5 % Low 34.9 - 44.3 % [facility] Hemoglobin (Bld) [Mass/Vol] 9.8 g/dL Low 11.4 - 15.2 g/dL [facility] Interpretation and review of laboratory results Abnormal [facility] MCH (RBC) [Entitic mass] 26.8 pg 25.9 - 33.9 pg [facility] MCHC (RBC) [Mass/Vol] 32.1 g/dL 31.4 - 35.9 g/dL [facility] MCV (RBC) [Entitic vol] 83.6 fL 79.6 - 97.7 fL [facility] Platelet mean volume (Bld) [Entitic vol] 9.3 fL 8.5 - 12.2 fL [facility] Platelets (Bld) [#/Vol] 374 10*3/uL 150 - 393 K/uL [facility] RBC (Bld) [#/Vol] 3.65 10*6/uL Low [facility] WBC (Bld) [#/Vol] 6.07 10*3/uL 3.99 - 11. 19 K/uL [facility] CHEM 7 (LYTES,BUN,CREA,GLUC) on 05-28-2022 Anion gap [Moles/Vol] 11 mmol/L 7 - 17 mmol/L [facility] Chloride [Moles/Vol] 106 mmol/L 98 - 10 8 mmol/L [facility] CO2 [Moles/Vol] 25 mmol/L 21 - 31 mmol/L [facility] Creatinine [Mass/Vol] 0.50 mg/dL 0.50 - 1.20 mg/dL [facility] GFR/1.73 sq M.predicted CKD-EPI (S/P/Bld) [Vol rate/Area] - PINF [facility] Comment on above: Reported eGFR is bas ed on the CKD-EPI 2020 equation using creatinine, age, and sex. Glucose [Mass/Vol] 89 mg/dL 70 - 99 mg/dL [facility] Osmolality Calc [Osmolality] 285 [facility] Potassium [Moles/Vol] 4.1 mmol/L 3.5 - 5.0 mmol/L [facility] Sodium [Moles/Vol] 138 mmol/L 135 - 145 mmol/L [facility] Urea nitrogen [Mass/Vol] 3 mg/dL Low 7 - 25 mg/dL [facility] Urea nitrogen/Creatinine [Mass ratio] 6 mg/mg [facility] MAGNESIUMon 05-28-2022 Magnesium [Mass/Vol] 1.8 mg/dL 1.6 - 2 .6 mg/dL [facility] No Panel Informationon 05-28 Interpretation and review of laboratory results Abnormal [facility] Interpretation and review of laboratory results Normal [facility] PHOSPHATE, INORGANICon 05-28 Phosphate [Mass/Vol] 4.9 mg/dL High 2.2 - 4 .6 mg/dL [facility] CALCIUMon 05-27-2022 Calcium [Mass/Vol] 8.6 mg/dL 8.6 - 10. 5 mg/dL [facility] CBC,PLATELETSon 05-27-2022 Erythrocyte distribution width (RBC) [Ratio] 12.9 % 10.8 - 14.9 % [facility] Hematocrit (Bld) [Volume fraction] 31.1 % Low 34.9 - 44.3 % [facility] Hemoglobin (Bld) [Mass/Vol] 10.1 g/dL Low 11.4 - 15.2 g/dL [facility] Interpretation and review of laboratory results Abnormal [facility] MCH (RBC) [Entitic mass] 27.2 pg 25.9 - 33.9 pg [facility] MCHC (RBC) [Mass/Vol] 32.5 g/dL 31.4 - 35.9 g/dL [facility] MCV (RBC) [Entitic vol] 83.8 fL 79.6 - 97.7 fL [facility] Platelet mean volume (Bld) [Entitic vol] 9.2 fL 8.5 - 12.2 fL [facility] Platelets (Bld) [#/Vol] 344 10*3/uL 150 - 393 K/uL [facility] RBC (Bld) [#/Vol] 3.71 10*6/uL Low [facility] WBC (Bld) [#/Vol] 6.21 10*3/uL 3.99 - 11. 19 K/uL [facility] CHEM 7 (LYTES,BUN,CREA,GLUC) on 05-27-2022 Anion gap [Moles/Vol] 11 mmol/L 7 - 17 mmol/L [facility] Chloride [Moles/Vol] 105 mmol/L 98 - 10 8 mmol/L [facility] CO2 [Moles/Vol] 26 mmol/L 21 - 31 mmol/L [facility] Creatinine [Mass/Vol] 0.49 mg/dL Low 0.50 - 1.20 mg/dL [facility] GFR/1.73 sq M.predicted CKD-EPI (S/P/Bld) [Vol rate/Area] - PINF [facility] Comment on above: Reported eGFR is bas ed on the CKD-EPI 2020 equation using creatinine, age, and sex. Glucose [Mass/Vol] 93 mg/dL 70 - 99 mg/dL [facility] Interpretation and review of laboratory results Abnormal [facility] Osmolality Calc [Osmolality] 285 [facility] Potassium [Moles/Vol] 4.0 mmol/L 3.5 - 5.0 mmol/L [facility] Sodium [Moles/Vol] 138 mmol/L 135 - 145 mmol/L [facility] Urea nitrogen [Mass/Vol] 3 mg/dL Low 7 - 25 mg/dL [facility] Urea nitrogen/Creatinine [Mass ratio] 6 mg/mg [facility] MAGNESIUMon 05-27-2022 Magnesium [Mass/Vol] 1.9 mg/dL 1.6 - 2 .6 mg/dL [facility] No Panel Informationon 05-27 Interpretation and review of laboratory results Normal [facility] PHOSPHATE, INORGANICon 05-27 Phosphate [Mass/Vol] 4.5 mg/dL 2.2 - 4 .6 mg/dL [facility] CALCIUMon 05-26-2022 Calcium [Mass/Vol] 8.4 mg/dL Low 8.6 - 10. 5 mg/dL [facility] CBC,PLATELETSon 05-26-2022 Erythrocyte distribution width (RBC) [Ratio] 12.8 % 10.8 - 14.9 % [facility] Hematocrit (Bld) [Volume fraction] 31.5 % Low 34.9 - 44.3 % [facility] Hemoglobin (Bld) [Mass/Vol] 10.0 g/dL Low 11.4 - 15.2 g/dL [facility] Interpretation and review of laboratory results Abnormal [facility] MCH (RBC) [Entitic mass] 27.0 pg 25.9 - 33.9 pg [facility] MCHC (RBC) [Mass/Vol] 31.7 g/dL 31.4 - 35.9 g/dL [facility] MCV (RBC) [Entitic vol] 84.9 fL 79.6 - 97.7 fL [facility] Platelet mean volume (Bld) [Entitic vol] 9.7 fL 8.5 - 12.2 fL [facility] Platelets (Bld) [#/Vol] 327 10*3/uL 150 - 393 K/uL [facility] RBC (Bld) [#/Vol] 3.71 10*6/uL Low [facility] WBC (Bld) [#/Vol] 7.91 10*3/uL 3.99 - 11. 19 K/uL [facility] CHEM 7 (LYTES,BUN,CREA,GLUC) on 05-26-2022 Anion gap [Moles/Vol] 13 mmol/L 7 - 17 mmol/L [facility] Chloride [Moles/Vol] 102 mmol/L 98 - 10 8 mmol/L [facility] CO2 [Moles/Vol] 23 mmol/L 21 - 31 mmol/L [facility] Creatinine [Mass/Vol] 0.48 mg/dL Low 0.50 - 1.20 mg/dL [facility] GFR/1.73 sq M.predicted CKD-EPI (S/P/Bld) [Vol rate/Area] - PINF [facility] Comment on above: Reported eGFR is bas ed on the CKD-EPI 2020 equation using creatinine, age, and sex. Glucose [Mass/Vol] 154 mg/dL High 70 - 99 mg/dL [facility] Osmolality Calc [Osmolality] 282 [facility] Potassium [Moles/Vol] 4.1 mmol/L 3.5 - 5.0 mmol/L [facility] Sodium [Moles/Vol] 134 mmol/L Low 135 - 145 mmol/L [facility] Urea nitrogen [Mass/Vol] 3 mg/dL Low 7 - 25 mg/dL [facility] Urea nitrogen/Creatinine [Mass ratio] 6 mg/mg [facility] MAGNESIUMon 05-26-2022 Magnesium [Mass/Vol] 1.8 mg/dL 1.6 - 2 .6 mg/dL [facility] No Panel Informationon 05-26 Interpretation and review of laboratory results Abnormal [facility] Interpretation and review of laboratory results Normal [facility] PHOSPHATE, INORGANICon 05-26 Phosphate [Mass/Vol] 3.4 mg/dL 2.2 - 4 .6 mg/dL [facility] CALCIUMon 05-25-2022 Calcium [Mass/Vol] 8.5 mg/dL Low 8.6 - 10. 5 mg/dL [facility] CBC,PLATELETSon 05-25-2022 Erythrocyte distribution width (RBC) [Ratio] 12.8 % 10.8 - 14.9 % [facility] Hematocrit (Bld) [Volume fraction] 31.7 % Low 34.9 - 44.3 % [facility] Hemoglobin (Bld) [Mass/Vol] 9.8 g/dL Low 11.4 - 15.2 g/dL [facility] Interpretation and review of laboratory results Abnormal [facility] MCH (RBC) [Entitic mass] 26.6 pg 25.9 - 33.9 pg [facility] MCHC (RBC) [Mass/Vol] 30.9 g/dL Low 31.4 - 35.9 g/dL [facility] MCV (RBC) [Entitic vol] 85.9 fL 79.6 - 97.7 fL [facility] Platelet mean volume (Bld) [Entitic vol] 9.7 fL 8.5 - 12.2 fL [facility] Platelets (Bld) [#/Vol] 292 10*3/uL 150 - 393 K/uL [facility] RBC (Bld) [#/Vol] 3.69 10*6/uL Low [facility] WBC (Bld) [#/Vol] 9.85 10*3/uL 3.99 - 11. 19 K/uL [facility] CHEM 7 (LYTES,BUN,CREA,GLUC) on 05-25-2022 Anion gap [Moles/Vol] 13 mmol/L 7 - 17 mmol/L [facility] Chloride [Moles/Vol] 104 mmol/L 98 - 10 8 mmol/L [facility] CO2 [Moles/Vol] 24 mmol/L 21 - 31 mmol/L [facility] Creatinine [Mass/Vol] 0.51 mg/dL 0.50 - 1.20 mg/dL [facility] GFR/1.73 sq M.predicted CKD-EPI (S/P/Bld) [Vol rate/Area] - PINF [facility] Comment on above: Reported eGFR is bas ed on the CKD-EPI 2020 equation using creatinine, age, and sex. Glucose [Mass/Vol] 98 mg/dL 70 - 99 mg/dL [facility] Osmolality Calc [Osmolality] 283 [facility] Potassium [Moles/Vol] 4.0 mmol/L 3.5 - 5.0 mmol/L [facility] Sodium [Moles/Vol] 137 mmol/L 135 - 145 mmol/L [facility] Urea nitrogen [Mass/Vol] 2 mg/dL Low 7 - 25 mg/dL [facility] Urea nitrogen/Creatinine [Mass ratio] 4 mg/mg [facility] MAGNESIUMon 05-25-2022 Magnesium [Mass/Vol] 1.8 mg/dL 1.6 - 2 .6 mg/dL [facility] No Panel Informationon 05-25 Interpretation and review of laboratory results Abnormal [facility] Interpretation and review of laboratory results Normal [facility] PHOSPHATE, INORGANICon 05-25 Phosphate [Mass/Vol] 3.2 mg/dL 2.2 - 4 .6 mg/dL [facility] CALCIUMon 05-24-2022 Calcium [Mass/Vol] 7.9 mg/dL Low 8.6 - 10. 5 mg/dL [facility] CBC,PLATELETSon 05-24-2022 Erythrocyte distribution width (RBC) [Ratio] 13.2 % 10.8 - 14.9 % [facility] Hematocrit (Bld) [Volume fraction] 33.0 % Low 34.9 - 44.3 % [facility] Hemoglobin (Bld) [Mass/Vol] 10.4 g/dL Low 11.4 - 15.2 g/dL [facility] Interpretation and review of laboratory results Abnormal [facility] MCH (RBC) [Entitic mass] 27.2 pg 25.9 - 33.9 pg [facility] MCHC (RBC) [Mass/Vol] 31.5 g/dL 31.4 - 35.9 g/dL [facility] MCV (RBC) [Entitic vol] 86.2 fL 79.6 - 97.7 fL [facility] Platelet mean volume (Bld) [Entitic vol] 9.7 fL 8.5 - 12.2 fL [facility] Platelets (Bld) [#/Vol] 270 10*3/uL 150 - 393 K/uL [facility] RBC (Bld) [#/Vol] 3.83 10*6/uL Low [facility] WBC (Bld) [#/Vol] 13.10 10*3/uL High 3.99 - 11 .19 K/uL [facility] CHEM 7 (LYTES,BUN,CREA,GLUC) on 05-24-2022 Anion gap [Moles/Vol] 10 mmol/L 7 - 17 mmol/L [facility] Chloride [Moles/Vol] 105 mmol/L 98 - 10 8 mmol/L [facility] CO2 [Moles/Vol] 24 mmol/L 21 - 31 mmol/L [facility] Creatinine [Mass/Vol] 0.51 mg/dL 0.50 - 1.20 mg/dL [facility] GFR/1.73 sq M.predicted CKD-EPI (S/P/Bld) [Vol rate/Area] - PINF [facility] Comment on above: Reported eGFR is bas ed on the CKD-EPI 2020 equation using creatinine, age, and sex. Glucose [Mass/Vol] 121 mg/dL High 70 - 99 mg/dL [facility] Osmolality Calc [Osmolality] 281 [facility] Potassium [Moles/Vol] 4.1 mmol/L 3.5 - 5.0 mmol/L [facility] Sodium [Moles/Vol] 135 mmol/L 135 - 145 mmol/L [facility] Urea nitrogen [Mass/Vol] 2 mg/dL Low 7 - 25 mg/dL [facility] Urea nitrogen/Creatinine [Mass ratio] 4 mg/mg [facility] MAGNESIUMon 05-24-2022 Interpretation and review of laboratory results Normal [facility] Magnesium [Mass/Vol] 1.7 mg/dL 1.6 - 2 .6 mg/dL [facility] No Panel Informationon 05-24 Interpretation and review of laboratory results Abnormal [facility] PHOSPHATE, INORGANICon 05-24 Phosphate [Mass/Vol] 2.1 mg/dL Low 2.2 - 4 .6 mg/dL [facility] CALCIUMon 05-23-2022 Calcium [Mass/Vol] 8.0 mg/dL Low 8.6 - 10. 5 mg/dL [facility] Interpretation and review of laboratory results Abnormal [facility] CBC,PLATELETSon 05-23-2022 Erythrocyte distribution width (RBC) [Ratio] 13.0 % 10.8 - 14.9 % [facility] Hematocrit (Bld) [Volume fraction] 38.4 % 34.9 - 44.3 % [facility] Hemoglobin (Bld) [Mass/Vol] 12.3 g/dL 11.4 - 15.2 g/dL [facility] Interpretation and review of laboratory results Abnormal [facility] MCH (RBC) [Entitic mass] 26.8 pg 25.9 - 33.9 pg [facility] MCHC (RBC) [Mass/Vol] 32.0 g/dL 31.4 - 35.9 g/dL [facility] MCV (RBC) [Entitic vol] 83.7 fL 79.6 - 97.7 fL [facility] Platelet mean volume (Bld) [Entitic vol] 9.6 fL 8.5 - 12.2 fL [facility] Platelets (Bld) [#/Vol] 354 10*3/uL 150 - 393 K/uL [facility] RBC (Bld) [#/Vol] 4.59 10*6/uL [facility] WBC (Bld) [#/Vol] 12.80 10*3/uL High 3.99 - 11 .19 K/uL [facility] CHEM 7 (LYTES,BUN,CREA,GLUC) Ordered By: Shraddha Munguia on 05-23-2022 Anion gap [Moles/Vol] 13 mmol/L 7 - 17 mmol/L [facility] Chloride [Moles/Vol] 103 mmol/L 98 - 10 8 mmol/L [facility] CO2 [Moles/Vol] 24 mmol/L 21 - 31 mmol/L [facility] Creatinine [Mass/Vol] 0.68 mg/dL 0.50 - 1.20 mg/dL [facility] GFR/1.73 sq M.predicted CKD-EPI (S/P/Bld) [Vol rate/Area] - PINF [facility] Comment on above: Reported eGFR is bas ed on the CKD-EPI 2020 equation using creatinine, age, and sex. Glucose [Mass/Vol] 148 mg/dL High 70 - 99 mg/dL [facility] Interpretation and review of laboratory results Abnormal [facility] Osmolality Calc [Osmolality] 285 [facility] Potassium [Moles/Vol] 4.9 mmol/L 3.5 - 5.0 mmol/L [facility] Sodium [Moles/Vol] 135 mmol/L 135 - 145 mmol/L [facility] Urea nitrogen [Mass/Vol] 4 mg/dL Low 7 - 25 mg/dL [facility] Urea nitrogen/Creatinine [Mass ratio] 6 mg/mg [facility] MAGNESIUMon 05-23-2022 Magnesium [Mass/Vol] 2.5 mg/dL 1.6 - 2 .6 mg/dL [facility] No Panel Informationon 05-23 Interpretation and review of laboratory results Normal [facility] PHOSPHATE, INORGANICon 05-23 Phosphate [Mass/Vol] 2.7 mg/dL 2.2 - 4 .6 mg/dL [facility] BETA HCG, URINE (POC DEVICE) on 05-22-2022 Beta HCG ( test) Ql (U) Negative Negative [facility] Interpretation and review of laboratory results Normal [facility] Test performed at address of the patient encounter. [facility] CALCIUMon 05-22-2022 Calcium [Mass/Vol] 7.8 mg/dL Low 8.6 - 10. 5 mg/dL [facility] CBC,PLATELETSon 05-22-2022 Erythrocyte distribution width (RBC) [Ratio] 12.7 % 10.8 - 14.9 % [facility] Hematocrit (Bld) [Volume fraction] 37.0 % 34.9 - 44.3 % [facility] Hemoglobin (Bld) [Mass/Vol] 12.0 g/dL 11.4 - 15.2 g/dL [facility] Interpretation and review of laboratory results Abnormal [facility] MCH (RBC) [Entitic mass] 26.3 pg 25.9 - 33.9 pg [facility] MCHC (RBC) [Mass/Vol] 32.4 g/dL 31.4 - 35.9 g/dL [facility] MCV (RBC) [Entitic vol] 81.0 fL 79.6 - 97.7 fL [facility] Platelet mean volume (Bld) [Entitic vol] 9.5 fL 8.5 - 12.2 fL [facility] Platelets (Bld) [#/Vol] 350 10*3/uL 150 - 393 K/uL [facility] RBC (Bld) [#/Vol] 4.57 10*6/uL [facility] WBC (Bld) [#/Vol] 17.70 10*3/uL High 3.99 - 11 .19 K/uL [facility] CHEM 7 (LYTES,BUN,CREA,GLUC) on 05-22-2022 Anion gap [Moles/Vol] 16 mmol/L 7 - 17 mmol/L [facility] Chloride [Moles/Vol] 103 mmol/L 98 - 10 8 mmol/L [facility] CO2 [Moles/Vol] 21 mmol/L 21 - 31 mmol/L [facility] Creatinine [Mass/Vol] 0.56 mg/dL 0.50 - 1.20 mg/dL [facility] GFR/1.73 sq M.predicted CKD-EPI (S/P/Bld) [Vol rate/Area] - PINF [facility] Comment on above: Reported eGFR is bas ed on the CKD-EPI 2020 equation using creatinine, age, and sex. Glucose [Mass/Vol] 133 mg/dL High 70 - 99 mg/dL [facility] Osmolality Calc [Osmolality] 285 [facility] Potassium [Moles/Vol] 3.9 mmol/L 3.5 - 5.0 mmol/L [facility] Sodium [Moles/Vol] 136 mmol/L 135 - 145 mmol/L [facility] Urea nitrogen [Mass/Vol] 6 mg/dL Low 7 - 25 mg/dL [facility] Urea nitrogen/Creatinine [Mass ratio] 11 mg/mg [facility] CONTINUOUS CARDIAC MONITORIN G STRIPon 05-22-2022 [facility] CONTINUOUS CARDIAC MONITORIN G STRIPOrdered By: Unassigned Pacs on 05-22-2022 [facility] Work Phone: HEPATIC FUNCTION PANELon Albumin [Mass/Vol] 3.8 g/dL 3.5 - 5.0 g/dL [facility] ALP [Catalytic activity/Vol] 54 U/L 32 - 126 U/L [facility] ALT [Catalytic activity/Vol] 17 U/L 9 - 48 U/L [facility] AST [Catalytic activity/Vol] 23 U/L 10 - 39 U/L [facility] Bilirubin [Mass/Vol] 0.5 mg/dL NINF - 1.5 mg/dL [facility] Bilirubin.direct [Mass/Vol] 0.2 mg/dL NINF - 0.3 mg/dL [facility] Protein [Mass/Vol] 6.3 g/dL Low 6.4 - 8.3 g/dL [facility] MAGNESIUMon 05-22-2022 Magnesium [Mass/Vol] 1.4 mg/dL Low 1.6 - 2 .6 mg/dL [facility] No Panel Informationon 05-22 ABO/RH(D) TYPE Positive [facility] BLOOD COMPONENT TYPE Red Cells, Leukoreduced [facility] EXPIRATION DATE [facility] Product ABO/RH(D) Positive [facility] Product ABO/RH(D) NUMBER [id number] [facility] PRODUCT CODE [id number] [facility] UNIT STATUS released [facility] Interpretation and review of laboratory results Abnormal [facility] PHOSPHATE, INORGANICon 05-22 Interpretation and review of laboratory results Normal [facility] Phosphate [Mass/Vol] 3.3 mg/dL 2.2 - 4 .6 mg/dL [facility] POC ARTERIAL BLOOD GASon Base excess Calc (Bld) [Moles/Vol] -2.1000 mmol/L -3.0 - 3.0 mmol/L [facility] Calcium.ionized (Bld) [Mass/Vol] 4.22 mg/dL Low 4.60 - 5.30 mg/dL [facility] CO2 (Bld) [Partial pressure] 33 mm[Hg] [facility] Glucose [Mass/Vol] 127 mg/dL High 70 - 99 mg/dL [facility] HCO3 (Bld) [Moles/Vol] 22 mmol/L 22 - 28 mmol/L [facility] Hematocrit (Bld) [Volume fraction] 34.5 % 34.2 - 45.6 % [facility] Hemoglobin (Bld) [Mass/Vol] 11.3 g/dL Low 11.4 - 15.2 g/dL [facility] Interpretation and review of laboratory results Abnormal [facility] Lactate [Moles/Vol] 1.2 mmol/L 0.5 - 1. 6 mmol/L [facility] Oxygen (Bld) [Partial pressure] 230 mm[Hg] High [facility] Oxygen saturation in Blood 99 % [facility] pH (Bld) 7.42 [pH] 7.35 - 7.45 [facility] Potassium [Moles/Vol] 3.6 mmol/L 3.5 - 5.0 mmol/L [facility] Sodium [Moles/Vol] 137 mmol/L 135 - 145 mmol/L [facility] Specimen source Nom (Unsp spec) Arterial [facility] Test performed at address of the patient encounter. [facility] Base excess Calc (Bld) [Moles/Vol] 0.0 mmol/L -3.0 - 3.0 mmol/L [facility] Calcium.ionized (Bld) [Mass/Vol] 4.56 mg/dL Low 4.60 - 5.30 mg/dL [facility] CO2 (Bld) [Partial pressure] 38 mm[Hg] [facility] Glucose [Mass/Vol] 138 mg/dL High 70 - 99 mg/dL [facility] HCO3 (Bld) [Moles/Vol] 24 mmol/L 22 - 28 mmol/L [facility] Hematocrit (Bld) [Volume fraction] 34.7 % 34.2 - 45.6 % [facility] Hemoglobin (Bld) [Mass/Vol] 11.3 g/dL Low 11.4 - 15.2 g/dL [facility] Interpretation and review of laboratory results Abnormal [facility] Oxygen (Bld) [Partial pressure] 197 mm[Hg] High [facility] Oxygen saturation in Blood 99 % [facility] pH (Bld) 7.42 [pH] 7.35 - 7.45 [facility] Potassium [Moles/Vol] 3.4 mmol/L Low 3.5 - 5.0 mmol/L [facility] Sodium [Moles/Vol] 138 mmol/L 135 - 145 mmol/L [facility] Specimen source Nom (Unsp spec) Arterial [facility] Test performed at address of the patient encounter. [facility] PREPARE TO TRANSFUSE OR RED BLOOD CELLSon 05-22-2022 UNIT NUMBER [id number] [facility] UNIT NUMBER [id number] [facility] PROTIME-INRon 05-22-2022 INR Coag (Bld) [Relative time] 1.2 {INR} High 0.9 - 1.1 [facility] Interpretation and review of laboratory results Abnormal [facility] PT Coag (PPP) [Time] 14.8 s High [facility] TYPE AND SCREENon 05-22-2022 ABO/RH(D) TYPE Positive [facility] XR Abdomen Single viewon IMPRESSION: Appropriate position [...] of the nasogastric tube in the stomach. [facility] Radiology Study observation (narrative) [facility] XR Abdomen Single viewOrdere d By: Debora Burciaga on 05-22-2022 [facility] Work Phone: PREG HCG QUALon 04-08-2022 , QUAL Negative Normal NEGATIVE [facility] Comment on above: Performed By: #### P REG #### [facility] [address] [place] [address] Dr. Esthela Stevens Covid-19 PCR ([facility])on 03-19 SARS-CoV-2 (COVID-19) RNA JORGE LUIS+probe Ql (Unsp spec) Not detected Normal NOT DETECTED [facility] Comment on above: Result Comment: This test is not yet approved or cleared by the [place] FDA. When there are no FDA-approved or cleared tests available, and other criteria are met, FDA can make tests available under an emergency access mechanism called an Emergency Use Authorization (EUA). The EUA for this test is supported by the Pulmonology Technician of Health and Human Service's (HHS's) declaration [...] By: #### L IVER, LDH, BMP #### [facility] [address] [place] [address] Abdomen and Pelvis [...] error, please notify the sender immediately at [phone] and permanently delete the original report and [...] error, please notify the sender immediately at [phone] and permanently delete the original report and destroy any copies or printouts. [facility] CT Abdomen and Pelvis W cont rast IVOrdered By: Avinash Miller [facility] Jason IMPRESSION: [...] 1. No evidence for intrathoracic metastatic disease [facility] CT Chest W contrast IVOrdere d By: Yovany Bills on 03-31-2022 [facility] Work Phone: No Panel Informationon 03-31 Radiology Study observation (narrative) [facility] CBC AND ELECTRONIC DIFFon Basophils (Bld) [#/Vol] 0.05 10*3/uL 0.00 - 0.15 K/uL [facility] Basophils/100 WBC (Bld) 0.6 % [facility] Differential cell count method Nom (Bld) Electronic Differential [facility] Eosinophils (Bld) [#/Vol] 0.07 10*3/uL 0.00 - 0.42 K/uL [facility] Eosinophils/100 WBC (Bld) 0.8 % [facility] Erythrocyte distribution width (RBC) [Ratio] 13.4 % 10.8 - 14.9 % [facility] Hematocrit (Bld) [Volume fraction] 37.9 % 34.9 - 44.3 % [facility] Hemoglobin (Bld) [Mass/Vol] 11.9 g/dL 11.4 - 15.2 g/dL [facility] Immature granulocytes (Bld) [#/Vol] 0.04 10*3/uL <=0.08 [facility] Immature granulocytes/100 WBC (Bld) 0.5 % [facility] Interpretation and review of laboratory results Abnormal [facility] Lymphocytes (Bld) [#/Vol] 2.33 10*3/uL 1.16 - 3.51 K/uL [facility] Lymphocytes/100 WBC (Bld) 27.4 % [facility] MCH (RBC) [Entitic mass] 26.3 pg 25.9 - 33.9 pg [facility] MCHC (RBC) [Mass/Vol] 31.4 g/dL 31.4 - 35.9 g/dL [facility] MCV (RBC) [Entitic vol] 83.8 fL 79.6 - 97.7 fL [facility] Monocytes (Bld) [#/Vol] 0.46 10*3/uL 0.22 - 0.87 K/uL [facility] Monocytes/100 WBC (Bld) 5.4 % [facility] Neutrophils (Bld) [#/Vol] 5.55 10*3/uL 1.64 - 7.28 K/uL [facility] Nucleated RBC/100 WBC (Bld) [Ratio] 0.0 % <=0.2 /100 WBC [facility] Platelet mean volume (Bld) [Entitic vol] 10.0 fL 8.5 - 12.2 fL [facility] Platelets (Bld) [#/Vol] 402 10*3/uL High 150 - 393 K/uL [facility] RBC (Bld) [#/Vol] 4.52 10*6/uL [facility] Segmented neutrophils/100 WBC (Bld) 65.3 % [facility] WBC (Bld) [#/Vol] 8.50 10*3/uL 3.99 - 11. 19 K/uL [facility] COMPREHENSIVE METABOLIC PANE Shamir 03-19-2022 Albumin [Mass/Vol] 4.5 g/dL 3.5 - 5.0 g/dL [facility] ALP [Catalytic activity/Vol] 67 U/L 32 - 126 U/L [facility] ALT [Catalytic activity/Vol] 15 U/L 9 - 48 U/L [facility] Anion gap [Moles/Vol] 16 mmol/L 7 - 17 mmol/L [facility] AST [Catalytic activity/Vol] 14 U/L 10 - 39 U/L [facility] Bilirubin [Mass/Vol] 0.4 mg/dL <1.5 [facility] Calcium [Mass/Vol] 9.8 mg/dL 8.6 - 10. 5 mg/dL [facility] Chloride [Moles/Vol] 100 mmol/L 98 - 10 8 mmol/L [facility] CO2 [Moles/Vol] 27 mmol/L 21 - 31 mmol/L [facility] Creatinine [Mass/Vol] 0.66 mg/dL 0.50 - 1.20 mg/dL [facility] GFR/1.73 sq M.predicted CKD-EPI (S/P/Bld) [Vol rate/Area] >90 >=60 mL/min/1.73m2 [facility] Comment on above: Reported eGFR is bas ed on the CKD-EPI 2020 equation using creatinine, age, and sex. Glucose [Mass/Vol] 73 mg/dL 70 - 99 mg/dL [facility] Osmolality Calc [Osmolality] 287 [facility] Potassium [Moles/Vol] 3.6 mmol/L 3.5 - 5.0 mmol/L [facility] Protein [Mass/Vol] 7.4 g/dL 6.4 - 8.3 g/dL [facility] Sodium [Moles/Vol] 139 mmol/L 135 - 145 mmol/L [facility] Urea nitrogen [Mass/Vol] 10 mg/dL 7 - 25 mg/dL [facility] Urea nitrogen/Creatinine [Mass ratio] 15 [facility]-19-2022 aPTT Coag (PPP) [Time] 36.5 s High [facility] INR Coag (Bld) [Relative time] 1.2 {INR} High [facility] Interpretation and review of laboratory results Abnormal [facility] PT Coag (PPP) [Time] 14.6 s High [facility] CBC AUTO DIFFon 02-03-2022 BASO # 0.1 103/ul Normal 0.0-0.1 [facility] Comment on above: Performed By: #### L IVER, LDH, BMP #### [facility] [address] [place] [address] Dr. Esthela Stevens Basophils/100 WBC (Bld) 0.5 % Normal 0.2-2.0 [facility] Comment on above: Performed By: #### L IVER, LDH, BMP #### [facility] [address] [place] [address] Dr. Esthela Stevens EO # 0.1 103/ul Normal 0.0-0.7 [facility] Comment on above: Performed By: #### L IVER, LDH, BMP #### [facility] [address] [address] [address] Esthela Stevens Eosinophils/100 WBC (Bld) 1.2 % Normal 0.9-7.0 [facility] Comment on above: Performed By: #### L IVER, LDH, BMP #### [facility] [address] [place] [address] Dr. Esthela Stevens Erythrocyte distribution width (RBC) [Ratio] 13.2 % Normal 11.0-15.0 [facility] Comment on above: Performed By: #### L IVER, LDH, BMP #### [facility] [address] [place] [address] Dr. Esthela Stevens Hematocrit (Bld) [Volume fraction] 38.4 % Normal 36.0-48.0 [facility] Comment on above: Performed By: #### L IVER, LDH, BMP #### [facility] [address] [place] [address] Dr. Esthela Stevens Hemoglobin (Bld) [Mass/Vol] 12.2 g/dL Normal 12.0-16.0 [facility] Comment on above: Performed By: #### L IVER, LDH, BMP #### [facility] [address] [place] [address] Dr. Esthela Stevens IG # 0.06 10e3/ul Critically high 0.00-0.03 [facility] Comment on above: Performed By: #### L IVER, LDH, BMP #### [facility] [address] [place] [address] Dr. Esthela Stevens IG % 0.6 % Critically high 0.0-0.5 [facility] Comment on above: Performed By: #### L IVER, LDH, BMP #### [facility] [address] [place] [address] Dr. Esthela Stevens LYMPH # 2.1 103/ul Normal 1.2-3.8 [facility] Comment on above: Performed By: #### L IVER, LDH, BMP #### [facility] [address] [place] [address] Dr. Esthela Stevens Lymphocytes/100 WBC (Bld) 21.7 % Normal 20.5-60.0 [facility] Comment on above: Performed By: #### L IVER, LDH, BMP #### [facility] [address] [place] [address] Dr. Esthela Stevens MANUAL DIFF REQ NO Normal [facility] Comment on above: Performed By: #### L IVER, LDH, BMP #### [facility] [address] [place] [address] Dr. Esthela Stevens MCH (RBC) [Entitic mass] 26.5 pg Critically low 26.7-34.0 [facility] Comment on above: Performed By: #### L IVER, LDH, BMP #### [facility] [address] [place] [address] Dr. Esthela Stevens MCHC (RBC) [Mass/Vol] 31.8 g/dL Normal 29.9-35.2 [facility] Comment on above: Performed By: #### L IVER, LDH, BMP #### [facility] [address] [place] [address] Dr. Esthela Stevens MCV (RBC) [Entitic vol] 83.5 fL Normal 81.0-99.0 [facility] Comment on above: Performed By: #### L IVER, LDH, BMP #### [facility] [address] [place] [address] Dr. Esthela Stevens MONO # 0.7 103/ul Normal 0.3-0.8 [facility] Comment on above: Performed By: #### L IVER, LDH, BMP #### [facility] [address] [place] [address] Dr. Esthela Stevens Monocytes/100 WBC (Bld) 7.5 % Normal 1.7-12.0 [facility] Comment on above: Performed By: #### L IVER, LDH, BMP #### [facility] [address] [place] [address] Dr. Esthela Stevens NEUT # 6.8 103/ul Critically high 1.4-6.5 [facility] Comment on above: Performed By: #### L IVER, LDH, BMP #### [facility] [address] [place] [address] Dr. Esthela Stevens Neutrophils/100 WBC (Bld) 68.5 % Normal 43.0-75.0 [facility] Comment on above: Performed By: #### L IVER, LDH, BMP #### [facility] [address] [place] [address] Dr. Esthela Stevens Platelet mean volume (Bld) [Entitic vol] 9.4 fL Critically low 9.5-13.5 [facility] Comment on above: Performed By: #### L IVER, LDH, BMP #### [facility] [address], [place] [address] Dr. Esthela Stevens PLT 403 103/ul Normal 150-450 [facility] Comment on above: Performed By: #### L IVER, LDH, BMP #### [facility] [address], [place] [address] Dr. Esthela Stevens RBC 4.60 106/ul Normal 4.20-5.40 [facility] Comment on above: Performed By: #### L IVER, LDH, BMP #### [facility] [address], [place] [address] Dr. Esthela Stevens WBC 9.9 103/ul Normal 4.0-11.0 [facility] Comment on above: Performed By: #### L IVER, LDH, BMP #### [facility] [address], [place] [address] ABD/PELV W CONon [...] CAROLYN WALSH Date: 2022-02-03 12:14 Normal [facility] Covid-19 PCR (CVDTB)on 01-16 SARS-CoV-2 (COVID-19) RNA JORGE LUIS+probe Ql (Unsp spec) Not detected Normal NOT DETECTED [facility] Comment on above: Result Comment: [...] for this test is supported by the Pulmonology Technician of Health and Human Service's declaration that [...] By: #### L IVER, LDH, BMP #### [facility] [address] [place] [address] Dr. Esthela Stevens ER URINE PROFILEon 2 Bilirubin Ql (U) Negative Normal NEGATIVE [facility] Comment on above: Performed By: #### ERUM WALLACERO #### [facility] [address] [place] [address] Dr. Esthela Stevens Clarity (U) CLEAR Normal CLEAR [facility] Comment on above: Performed By: #### ERUM WALLACERO #### [facility] [address] [place] [address] Dr. Esthela Stevens Color (U) LT. YELLOW Normal YELLOW [facility] Comment on above: Performed By: #### E ERUM SANCHEZRO #### [facility] [address] [place] [address] Dr. Esthela ARGUELLES A micrscopic examination will be performed if indicated. Normal [facility] Comment on above: Performed By: #### ERUM WALLACERO #### [facility] [address] [place] [address] Dr. Esthela Stevens Glucose Ql (U) Negative Normal NEGATIVE [facility] Comment on above: Performed By: #### Toñito SANCHEZ UMICRO #### [facility] [address] [place] [address] Dr. Esthela Stevens Hemoglobin Ql (U) Negative Normal NEGATIVE [facility] Comment on above: Performed By: #### Toñito SANCHEZ UMICRO #### [facility] [address] [place] [address] Dr. Esthela Stevens Ketones Ql (U) Negative Normal NEGATIVE [facility] Comment on above: Performed By: #### MERISSA WALLACEICRO #### [facility] [address] [place] [address] Dr. Esthela Stevens LEUKOCYTES SMALL Abnormal NEGATIVE [facility] Comment on above: Performed By: #### MERISSA WALLACEICRO #### [facility] [address] [place] [address] Dr. Esthela Stevens Nitrite Ql (U) Negative Normal NEGATIVE [facility] Comment on above: Performed By: #### Toñito SANCHEZ UMICRO #### [facility] [address] [place] [address] Dr. Esthela Stevens pH (U) 7.0 [pH] Normal 5-9 [facility] Comment on above: Performed By: #### Toñito SANCHEZ UMICRO #### [facility] [address] [place] [address] Dr. Esthela Stevens SPEC GRAVITY 1.015 Normal 1.005-<=1.025 [facility] Comment on above: Performed By: #### Toñito SANCHEZ UMICRO #### [facility] [address] [place] [address] Dr. Esthela Stevens UA PROTEIN Negative Normal NEGATIVE/ TRACE [facility] Comment on above: Performed By: #### E RUR, UMICRO #### [facility] [address] [address] [address] Esthela Stevens UR MICRO IND INDICATED Normal [facility] Comment on above: Performed By: #### E RUR, UMICRO #### [facility] [address] [place] [address] Dr. Esthela Stevens Urobilinogen Qn (U) 0.2 {Emeka'U}/dL Normal 0.2 - 1. 0 [facility] Comment on above: Performed By: #### E LAURA, ICRO #### [facility] [address] [place] [address] Dr. Esthela Stevens LACTATE/LACTIC ACIDon 2021 Lactate [Moles/Vol] 1.3 mmol/L Normal 0.4-1.9 [facility] Comment on above: Performed By: #### P REG #### [facility] [address] [place] [address] Dr. Esthela Stevens LIPASEon 02-03-2022 Lipase [Catalytic activity/Vol] 58.0 U/L Critically low 73.0-393.0 [facility] Comment on above: Performed By: #### L IPA, CMP #### [facility] [address] [place] [address] Dr. Esthela Stevens PREG HCG QUALon 02-03-2022 , QUAL Negative Normal NEGATIVE [facility] Comment on above: Performed By: #### L IVER, LDH, BMP #### [facility] [address] [place] [address] Dr. Esthela Stevens PROF 14(COMP METB)on 022 Albumin [Mass/Vol] 3.8 g/dL Normal 3.4-5.0 [facility] Comment on above: Performed By: #### L IPA, CMP #### [facility] [address] [place] [address] Dr. Esthela Stevens Albumin/Globulin [Mass ratio] 1.0 {ratio} Normal [facility] Comment on above: Performed By: #### L IPA, CMP #### [facility] [address] [address] [address] Esthela Stevens ALP [Catalytic activity/Vol] 75 U/L Normal 46-116 [facility] Comment on above: Performed By: #### L IPA, CMP #### [facility] [address] [address] [address] Esthela Stevens ALT [Catalytic activity/Vol] 37 U/L Normal 14-59 [facility] Comment on above: Performed By: #### L IPA, CMP #### [facility] [address] [address] [address] Esthela Stevens Anion gap [Moles/Vol] 14.0 mmol/L Normal [facility] Comment on above: Performed By: #### L IPA, CMP #### [facility] [address] [address] [address] Esthela Stevens AST [Catalytic activity/Vol] 14 U/L Critically low 15-37 [facility] Comment on above: Performed By: #### L IPA, CMP #### [facility] [address] [address] [address] Esthela Stevens Bilirubin [Mass/Vol] 0.2 mg/dL Normal 0.2-1.0 [facility] Comment on above: Performed By: #### L IPA, CMP #### [facility] [address] [address] [address] Esthela Stevens Calcium [Mass/Vol] 8.9 mg/dL Normal 8.5-10.1 [facility] Comment on above: Performed By: #### L IPA, CMP #### [facility] [address] [address] [address] Esthela Stevens Chloride [Moles/Vol] 103 mmol/L Normal 98-107 [facility] Comment on above: Performed By: #### L IPA, CMP #### [facility] [address] [address] [address] Esthela Stevens CO2 [Moles/Vol] 25.2 mmol/L Normal 21.0-32.0 [facility] [place] [facility] Comment on above: Performed By: #### L IPA, CMP #### [facility] [address] [address] [address] Esthela Stevens Creatinine [Mass/Vol] 0.72 mg/dL Normal 0.55-1.02 [facility] Comment on above: Performed By: #### L IPA, CMP #### [facility] [address] [address] [address] Esthela Stevens EGFR-AF MICRONESIAN >60 Normal >=60 [facility] Comment on above: Performed By: #### L IPA, CMP #### [facility] [address] [address] [address] Esthela Stevens EGFR-NON AF MICRONESIAN >60 Normal >=60 [facility] Comment on above: Performed By: #### L IPA, CMP #### [facility] [address] [place] [address] Dr. Esthela Stevens Globulin (S) [Mass/Vol] 3.7 g/dL Normal [facility] Comment on above: Performed By: #### L IPA, CMP #### [facility] [address] [place] [address] Dr. Esthela Stevens Glucose [Mass/Vol] 101 mg/dL Normal 74-106 [facility] Comment on above: Performed By: #### L IPA, CMP #### [facility] [address] [place] [address] Dr. Esthela Stevens Potassium [Moles/Vol] 4.2 mmol/L Normal 3.5-5.1 [facility] Comment on above: Performed By: #### L IPA, CMP #### [facility] [address] [place] [address] Dr. Esthela Stevens Protein [Mass/Vol] 7.5 g/dL Normal 6.4-8.2 [facility] Comment on above: Performed By: #### L IPA, CMP #### [facility] [address] [place] [address] Dr. Esthela Stevens Sodium [Moles/Vol] 138 mmol/L Normal 136-145 [facility] Comment on above: Performed By: #### L IPA, CMP #### [facility] [address] [address] [address] Esthela Stevens Urea nitrogen [Mass/Vol] 11.0 mg/dL Normal 7.0-18.0 [facility] Comment on above: Performed By: #### L MYLES, CMP #### [facility] [address] [place] [address] Dr. Esthela Stevens Urea nitrogen/Creatinine [Mass ratio] 15.3 mg/mg Normal [facility] Comment on above: Performed By: #### L MYLES, CMP #### [facility] [address] [place] [address] Dr. Esthela Stevens URINE MICROSCOPIC ONLYon BACTERIA NONE SEEN Normal NONE SEEN [facility] Comment on above: Performed By: #### Toñito SANCHEZ UMICRO #### [facility] [address] [place] [address] Dr. Esthela Stevens Bacteria identified Cx Nom (U) NOT INDICATED Normal [facility] Comment on above: Performed By: #### Toñito SANCHEZ UMICRO #### [facility] [address] [place] [address] Dr. Esthela Stevens CAST NONE SEEN Normal NONE SEEN [facility] Comment on above: Performed By: #### Toñito SANCHEZ UMICRO #### [facility] [address] [place] [address] Dr. Esthela Stevens Crystals LM Nom (Urine sed) NONE SEEN Normal NONE SEEN [facility] Comment on above: Performed By: #### Toñito SANCHEZ UMICRO #### [facility] [address] [place] [address] Dr. Esthela Stevens Epithelial cells LM Ql (Urine sed) FEW Abnormal NONE SEEN /RARE [facility] Comment on above: Performed By: #### Toñito SANCHEZ UMICRO #### [facility] [address] [place] [address] Dr. Esthela Stevens MUCOUS NONE SEEN Normal NONE SEEN [facility] Comment on above: Performed By: #### Toñito SANCHEZ UMICRO #### [facility] [address] [place] [address] Dr. Esthela Stevens RBC 0-2 Normal 0-2 [facility] Comment on above: Performed By: #### E ERUM SANCHEZRO #### [facility] [address], [place] [address] Dr. Esthela Stevens WBC 2-5 Abnormal NONE SEEN [facility] Comment on above: Performed By: #### E LAURA, MAKENZIE #### [facility] [address], [place] [address] Dr. Esthela Stevens Test, Urineon -0 Beta HCG ( test) Ql (U) Negative [employer] Other Urinalysis - AUTOMATEDon Appearance (U) clear [facility] Other Bilirubin Ql (U) Negative [employer] Other Color (U) yellow [employer] Other Glucose Ql (U) Negative [facility] Other Hemoglobin Ql (U) Negative [employer] Other Ketones Ql (U) 15 [facility] Other Leukocyte esterase Test strip Ql (U) Negative [employer] Other Nitrite Ql (U) Negative [facility] Other pH (U) 7.0 [pH] [employer] Other Protein Ql (U) Negative [facility] Other Specific gravity (U) [Rel density] 1.020 [employer] Other Urobilinogen (U) [Mass/Vol] 0.2 mg/dL [employer] Other Urinalysis - AUTOMATED [employer] Other Coding Summary.on 02-18-2021 Coding Summary. [id number] Gh0bWw+PGhlYWQ+PE1FV SCuO41zaHSlgN3CP5dFZ T5AEEQWGFZASB6ZPJ0hw KV7QVgpD9FshvJm SvpixZCeOW88XXt5QVI8 zFxsGZdhsI0ceDWrC0r5 TaSxYM44sJ22UPebTKDc NwF3QhQlsiwgyMLp D8eoIsRnyKWgFzw+PHRh YmxlIHdpZHRoPScxMDAl KcLjeRvjZY5qNw4eTLYz LWNvbGxhcHNlOiBj l2ccDIFoJGweFH2qwNck V3NyuXH2BUKsb3k7Od75 dHI+LXMhZLK9oNniDJuw n035NrUsp5eyTZP6 cJNhQAtfXTY3A98fm0O6 GHMrIRObWXA9dDE0wQ3j wViohnwcU5PgvKAeLgB9 UPE5wNIibR1ubIti zaizpI2iSan+A42ZVM4Q ZRTOXG1FDyc5G5FpCtxm dHI+QJ12DPFhWX83tNPs bLTmw2aklMr2QtZg MIPtAQH0gCuqDWshp6Mn LTRcM76zdNJsw9C6OCEs jUjgkADdQlPzrTU8yU9i AVrxlipij7hsvbmf Wwlji2skzy11eX20L55x PQkwJDSaOCA1PSHlEDAb yNswtr2atH9cVx6+IDxj t0lkj1zgqMm2NsQi HBQmotMajUreOKP6q3Jr Hd80C7MvsVbtl3XkQnt3 cc67mYTfo6F4dPY2IKpk CXFmqJ1pVMahYgB5 SBYxQwTzaQ84qBLjWGiz Cy8smSmccFdzZR4oEJRr zyzrQCAbjA3kIGBvxDEj pFglDU3pUSNnlvut u733WbKxWQA8BSFszOYi N5TmfX0pTzBcXZTzEOHv V0BkbNQrNPveJ540XDve NiW3XEIejgIuK0Us VBSabLmoHqU2e2N2Eq8H w9CvqwlcFEM8HSzfBEW1 EoJpAfKgQnW4F7FbYnl9 RSLfuIrjLE0jG6Kh EKUhgypzoxcolWQ1NNTc IVXvmC44iTJwIPpfAh5t n0I3r251BWPqATNusB93 Hc5auTqcNOUplOUI rC2ljfqss0jkqiyhLtVo IXLtTJp2ZIa7LAUmfGwd MbZxDXS3YcA2LJB7uVDw wB8brUzseqofzY6z Oyc+E67wvD3jEBW2RUV4 kktgJXSpffEjTP11CA75 C6MdFbmanSRcoBB+PGRp idTfcBmxMD7cSeAp j5ngf6QrVYpjV2WtAGXi VHvpRrj3OPIpQFY1fLS1 cS0xTFGcNTjdt7B0jGX7 F2KjtbMchw0pk9ai IORrSQpvW60vdRWda2J8 HXHhiRV0YREvoUjiLiVv sY03Qha+OEYtiCsma0Dm Dhmth9aty4bcgOa6 IjMwJSIgdmFsaWduPSJ0 n8FtMg86L10dDUjgWNZj VAUgFWKeNNNoqWwyir6g qE1jVw2+PGNvbCB3 vKQ3dL7iICLxQxL0RFdn K064BoWjmNKvCxjdk4zi g1duaRq7FdLgESMdmkXo zEvwUJO4e7KgUg33 V59gITisRJEmPUKcXXZs ICRpzEhkaw6ttI9iJf8+ PR9zs9xeeb34pY54vQU+ ZVBjOEC3aFoyKLxn SXKfhL7zEJitSzJ3RVWr SnApaL98fZYjHNwbAc4x lLsljHasHL6uMZFntwkr l932DrHlc5ebGNIt aXFjKTnlMOU6X73bd1K9 NLKaXBDmREO2yGU0dG7v bGlnbjogbGVmdDsgdmVy qKpoEAzgUStvP439 IHRvcDsnPlBhdGllbnQg GbCzGUv7N8GyTfk6PXYq rWerVH4biESgXHycXd0q lRxylPlgDR9dSXGd uvfpi360KcYut0ogAZOr cFOrOOhcKAJ5X63ti3B8 JXXmJFQfGYQ7iVO1tC5w bGlnbjogbGVmdDsg ifBspWxqZTqsCXrsD772 IHRvcDsnPkJpcnRoIERh aIM3KN06GL88rCPqy8B7 sHH5R6AoVWTunpbx gfiorSF7WCNkHSPlmM38 Vm8nrGlhEw9tYLQcJZK0 JCHgtLMnF4SxzI4fPjKh QHHmXVRuE1UsyVVi CEhoT962JKptZvE5ABDe qtGvQ3CjKPZgkVoaVhK2 m9M3Qt8ME2V5YA97TK74 uGZxo7E7iEG9D0Ao JRViscimfyrwvIO7WISq PTFiiF95Kk3ycXmkKf8j UZYwPHB9OOYqyOXtR1Dv wJ0jYdBvHZDfSDXn I2BrtPGbEHlyI946HRkq OyK1DBQxhbKdU5QjRFVr rFniRoV6r1L5Iv0ROIn2 SS52SJ08bODme1J9 tBB4M9TaQWOqzzbdfgwe xRK6FEWzTNMsgZ69Rw0z vRqnZu8tKRVoDER5BBFu wHYlW6LioB5mRhUo BUVgXVYuZ9HvcIUgWAgu Q643HSxxVvA7MPDojcDc B5MdJMDjeDkqOhB5g9V2 Lw9SOLPlXJ67XTB7 cQW4JG99OG64V7FzKcpq dGFibGU+PHRhYmxlIHdp ZHRoPScxMDAlJyBzdHls VZ5rLx7rLINlPMBl tVsloZJjWxBui3naFSPu UQkvHM4mkZedZ2AyzMD7 XRZgz1t3Uk83T22oO8Sg dXA+VNVhqAK3kTS5 dH0lWkPzLdW1QGgeA354 KjFrkIDfIlare6emh6th yOu3CaJ8KPWduuRfwAph KDZ6n5QlVt88S91f IHdpZHRoPSIxNSUiIHZh dQsbyh1upQ0iHb9+PGNv jDH7hMY4bJ6xPhEgDeA8 PYnyW593KaYwrROn Qzdjc7mno2afhSk3XcCo VWBhbpOmaJygHVE3m6Zq Tr55M7BvsTibe8AhGno3 qu24fPFdv1X9qCB8 G3ZfSWGbaasobBJarLct OK3hIGCxtzqkEPIggC4p WJQnM1j4XeBhTmN7GOrr S8DhxqE5SPDwqRIo GSftBGW8B39aa7G0EDJs OTQlYQY8nGF1pY3prQaz bjogbGVmdDsgdmVydGlj HFegRSzbG084OLTq bYgaGHZaxJ1pHVIrrNCb gSloYL9mSGNxmxcrUocL YEqEYszsW1HLMCDXGIa2 O9YgJjx8PIOibPxd RH0zeJNqNZmkEv5nfKxg wCddUP7hKZXfbuapFMJa aP8zOLSotBKruLvgEF6y YZKvygcjp256NeIj RVN6AADhjTOdC3JefY4m FuEhPBQpEXGqX7VtnKLw WOgzE437NBkjZgR2VFXe eyAtJ1MgXHSsdUwo KnR7d5G7Hb8xPK9eWC3f VBd3BS63OR07sYKgi8K4 cGK4U8NnBWCefgyrrzur vKC6CIUuENBfgP18 iBUgWFsmOm4zg1C0l489 VIOnJWZquR96Qk1zwGpf FTMooHBKxA2qzyfbo0qc cjogIzAwMDAwMDt0 RNw8UPYykVigUqHfYKY0 VhM6KIF0oCBinW3ntJht csbynJ1qFzj+MjMgWWVh wbN2U9KlJyv5WPHl xMbtGN1eqVMmHOowTc5a vKdhuTgrUR7iUMHgxiuh VQThyE5xQIDuzEGshSuj VT2eGJVlijfwz672 FjWaHHI2NXYvjKVtM8Zs jP2xJwGlKKGqESKjP1Ms cVLbYPkvK646OEiySwI1 JVLqnaPvX3QcPIWu iHmiBrI3k4A3Bi7AHI4c hRH2P8UwOmd3TLWymZle TQ4zyWKqCVjpQp4huUlg sGipEI0dJECojrmg DVHveG0bPSNbsSFxbNih TU8qTSNuvpcls462BlJr TVH0SPWabFFdF2BekE2x VqBsFLLtMAGzD1Ds tRZdHIcmF622INwbItY3 LTFzsrPaV7CjCLPngRhk XzF4i9R4Mq7QwNNqV1Dn N1t1G3HsFpqvqKW+ XM90WHEvSY17nKLusUIm e9zgzTr8ZpTbBWZnQXC6 gTtkGHazz7HxDKSnZ82f oGBll8G6RAEsmAfa mPMyZsDxmVX3eS4pSFgq lxuwh5ribcppDkmvv9sb jb13oY57M46iFNzoDNEm PSIzMCUiIHZhbGln ff8ekP8vTv3+PGNvbCB3 cZD2qB1gGyQbHmN9WOta N911OeTykBNgEfcsb5sw e6qusNu5HmNoLDUi qxGwtQzgLYM3b5SeHd93 I28sDWoqWKArYPFzUQZp YRIpaShpof0rbE5kOb8+ JP1ux8ucwp86mZ90 dHI+LYYbBJB6fTliOXtn YVFekV1fSWjbUsK8QFLt DgIdvB21eAGqPWypXl0g xNccvBpkXM0mGJVu tqrcr167OjNnz6qoODGp mGUbDNmhHKO3I89bz3S9 SLDvKNHgNGX6uWX3nA8b bGlnbjogbGVmdDsg yfXbxMtzDTapCHnlX044 OZDmkRxiSbTxeFSkB7zu xyYLGS5wYaaoxUM+PHRk WDP5zScdFSdlJDYe uK8qTFSkH9g7SvVjMlB5 KTizF1UqihG7HEMyeOAy GFVhcJZRcK0bhligj5ni cjogIzAwMDAwMDt0 SUp8AXXjfFnfJvSwLYT1 LuQ6TQA8zHXdlO2wuTzx uoqccQ0kAif+RklOOjwv dGQ+XRTpDWL7tTag DMdsGABnnU5vTGSzK8r0 SlMdYkS5AUvhU2FufkI3 QZIvrNHzJNJxfOMXkD5z rxfvl5muwiryFiHr PXBlSLe8IRq7HTUjuUvq VmJbKMD1MfM7IPU8qCVw oW4lxTkgeimgbN1dGvt+ TVJOOjwvdGQ+PHRk UGM2oPtlBHqoCRSsxB3p SGQfN2i2YsSbHfZ0RZel H0GmcrV7EJMndPEoTDJr fOGPcC5zfcmrk0ns hfleJmRiIHPhKEg5GNx6 IJSucKfhEsRpOHN0HjT4 BCO6zMPboJ6qeLmuydio yN9gLjn+LEP9URV8 HM93QU93L6DzYdlskWYq bGU+PHRhYmxlIHdpZHRo MOzzLVBpPcWhsUbxJM6v Iu6hQRGpNOPrqPyn cHNl (more content not included)... Normal [facility] Consent for Treatmenton Consent for Treatment [id number] #1.00CD:127 Normal [facility] Discharge Instructionson Discharge Instructions [id number]#1.00CD:127 Normal [facility] ED Clinical Summaryon 2020 ED Clinical Summary [place] [id number] ED Clinical Summary Person Information Name: ZAINAB MCCLURE Johanna/[facility] Age: 25 Years : 1995 Sex: Female Language: Turkmen PCP: ERIN SAMS CNP Marital Status: Single [...] 02/17/2021 11:52:53 02/17/2021 11:52:53 02/17/2021 11:52:53 ADDRESS: [address] [place] [phone] [facility] DOC NOTES: MEDICAL INFORMATION: Prescriptions Given: New Medications Printed Prescriptions lorazepam (Ativan 1 mg Tab) 1 Tablets By Mouth every 8 hours for 2 Days. Take one by mouth every eight hours as needed. Refills: 0. PATIENT EDUCATION INFORMATION: Instructions: Suicidal Feelings: How to Help Yourself; Managing Anxiety, Adult Follow up: With: Address: When: [facility] In 1 day 02/18/2021 With: Address: When: ERIN SAMS [address] [facility] [place] [address] [phone] Business (1) In 3 days DIAGNOSIS: Anxiety; Suicidal ideation Normal [facility] ED Note-Physicianon 02-18-20 ED Note-Physician Basic Information [...] Oral, q8hr Follow-up With When Contact Information [facility] In 1 day 02/18/2021 EDT Additional Instructions: ERIN SAMS In 3 days [address] [facility], [place] [address]- [phone] Business (1) Additional Instructions: Patient Education Suicidal Feelings: How to Help Yourself Managing Anxiety, Adult Problem List/Past Medical History Ongoing No qualifying data Historical No qualifying data Medications Inpatient No active inpatient medications Home No active home medications Allergies No Known Medication Allergies Lab Results No qualifying data available. Diagnostic Results No qualifying data available. Normal [facility] Comment on above: Result Comment: Elec tronically Signed By: Vinicuis Childers DO\.br\Date and Time Signed: 02/17/21 11:41 [...] services (911 in the [place] ? [facility] health and human services helpline (211 in the [place] ? Go to your nearest emergency department. ? Call a suicide hotline to speak with a trained counselor. The following suicide hotlines are available in the [place]: ? 4-115-748-TALK ( ). ? 2-753-NMAGLBW ( ). ? . This is a hotline for Persian speakers. ? . This is a hotline for TTY users. ? 9-864-2-UJANUARY ( ). This is a hotline for lesbian, escobar, bisexual, transgender, or questioning youth. ? For a list of hotlines in [place], visit www.suicide.org/hotl zeferino/international/c srrbl-xxqzbkp-zlbwkn es.html ? Contact a crisis center or [...] even if you do not feel sociable. Cwxv-zi-gdgh conversation is best to help them understand [...] can help you feel better. ? Take fyxm-amc-siidevu and prescription medicines only as told by [...] Lifeline: www.suicidepreventio nlifeline.org ? Hopeline: www.hopeline.com ? [employer] for Suicide Prevention: www.afsp.org ? The Se Project (for lesbian, escobar, bisexual, transgender, or questioning youth): www.thetrevorproject .org Contact a health care provider if: ? You feel as though you are a burden to others. ? You feel agitated, angry, vengeful, or have extreme mood swings. ? You have withdrawn from family and friends. Get (more content not included)... Normal [facility] ED Patient Summaryon 021 ED Patient Summary [place] [id number] Patient Discharge Instructions Person Information Name: ZAINAB MCCLURE Age: 25 Years Arrival Date: 02/17/2021 09:42:11 Discharge Diagnosis: Anxiety; Suicidal ideation Primary Care Physician: ERIN SAMS CNP Provider Information Primary Provider: Vinicius Childers DO Advanced Postmaster Relief:None The exam and treatment you received in the Emergency Department were for an urgent problem and are not intended as complete care. It is important that you follow up with a doctor, nurse practitioner, or physician?s export sales assistant for ongoing care. If your symptoms become worse or you do not improve as expected and you are unable to reach your usual health care provider, you should return to the Emergency Department. We are available 24 hours a day. ZAINAB MCCLURE has been given the following list of patient education materials, prescriptions and follow-up instructions: Follow-up Instructions: With: Address: When: [facility] In 1 day 02/18/2021 With: Address: When: ERIN SAMS [facility] [place] [address] [phone] [facility] (1) In 3 days In the event that this physician does not participate in your insurance network, please consult with your insurance company to find a nearby participating provider. Patient Education Materials: Suicidal Feelings: How to Help Yourself; Managing Anxiety, Adult A MESSAGE TO ALL PATIENTS REGARDING OPIOIDS PRESCRIPTION OPIOIDS: WHAT YOU NEED TO KNOW Prescription opioids can be used to help relieve btfiddaq-ay-bolbjl pain and are often prescribed following a [...] care professio (more content not included)... Normal [facility] Valuables Checkliston 2020 Valuables Checklist [id number] 6#1.00CD:127 [facility] Vital Signs Date Time Vital Sign Value Performing Clinician Facility 08-24-2023 10:09-0500 Body mass index (BMI) [Ratio] 32.44 kg/m2 Ron Alden DO Work Phone: [facility] 08-24-2023 10:09-0500 Body weight 83.06 kg Ron Alden DO Work Phone: [facility] 08-24-2023 10:09-0500 Diastolic blood pressure 68 mm[Hg] Ron Alden DO Work Phone: [facility] 08-24-2023 10:09-0500 Systolic blood pressure 110 mm[Hg] Ron Alden DO Work Phone: [facility] 03-11-2023 09:53-0400 Body height 154.9 cm Farshad Yaritza [facility] Work Phone: [facility] 12-10-2022 12:07-0400 Body height 155.2 cm Suman Baker MD, PhD Work Phone: [facility] Comment on above: without shoes 12-10-2022 12:07-0400 Body mass index (BMI) [Ratio] 30.64 kg/m2 Suman Baker MD, PhD Work Phone: [facility] 12-10-2022 12:07-0400 Body temperature 97.81 [degF] Suman Baker MD, PhD Work Phone: [facility] 12-10-2022 12:07-0400 Body weight 73.8 kg Suman Baker MD, PhD Work Phone: [facility] Comment on above: without shoes 12-10-2022 12:07-0400 Diastolic blood pressure 72 mm[Hg] Suman Baker MD, PhD Work Phone: [facility] 12-10-2022 12:07-0400 Heart rate 77 /min Suman Baker MD, PhD Work Phone: [facility] 12-10-2022 12:07-0400 Respiratory rate 14 /min Suman Baker MD, PhD Work Phone: [facility] 12-10-2022 12:07-0400 SaO2% (BldA) [Mass fraction] 99 % Suman Baker MD, PhD Work Phone: [facility] Comment on above: room air 12-10-2022 12:07-0400 Systolic blood pressure 118 mm[Hg] Suman Baker MD, PhD Work Phone: [facility] 10-22-2022 13:57-0400 Body height 154.9 cm Rebekah Suero MD Work Phone: [facility] 10-22-2022 13:57-0400 Body mass index (BMI) [Ratio] 30.33 kg/m2 Rebekah Suero MD Work Phone: [facility] 10-22-2022 13:57-0400 Body temperature 97.59 [degF] Rebekah Suero MD Work Phone: [facility] 10-22-2022 13:57-0400 Body weight 72.8 kg Rebekah Suero MD Work Phone: [facility] 10-22-2022 13:57-0400 Diastolic blood pressure 62 mm[Hg] Rebekah Suero MD Work Phone: [facility] 10-22-2022 13:57-0400 Heart rate 62 /min Rebekah Suero MD Work Phone: [facility] 10-22-2022 13:57-0400 Respiratory rate 20 /min Rebekah Suero MD Work Phone: [facility] 10-22-2022 13:57-0400 SaO2% (BldA) [Mass fraction] 99 % Rebekah Suero MD Work Phone: [facility] 10-22-2022 13:57-0400 Systolic blood pressure 119 mm[Hg] Rebekah Suero MD Work Phone: [facility] 10-22-2022 10:19-0400 Body height 157.5 cm Yudelka Moralez [employer] SP[employer]ER-SENIOR TALENT ACQUISITION SPECIALIST Work Phone: [facility] 10-22-2022 10:19-0400 Body mass index (BMI) [Ratio] 28.66 kg/m2 Yudelka Moralez [employer] SP[employer] TE[employer]ER-SENIOR TALENT ACQUISITION SPECIALIST Work Phone: [facility] 10-22-2022 10:19-0400 Body weight 71.1 kg Yudelka Moralez [employer] SP[employer]ISH TEACHER-SENIOR TALENT ACQUISITION SPECIALIST Work Phone: [facility] 10-22-2022 10:19-0400 Diastolic blood pressure 76 mm[Hg] Yudelka Moralez [employer] SP[employer] TEACHER-SENIOR TALENT ACQUISITION SPECIALIST Work Phone: [facility] 10-22-2022 10:19-0400 Systolic blood pressure 126 mm[Hg] Yudelka Moralez [employer] SP[employer] TEACHER-SENIOR TALENT ACQUISITION SPECIALIST Work Phone: [facility] 10-22-2022 07:38-0400 Body height 157.5 cm Yudelka Moralez [employer] SP[employer] TEACHER-SENIOR TALENT ACQUISITION SPECIALIST Work Phone: [facility] 10-22-2022 07:38-0400 Diastolic blood pressure 76 mm[Hg] Yudelka Moralez [employer] SP[employer]ISH TEACHER-SENIOR TALENT ACQUISITION SPECIALIST Work Phone: [facility] 10-22-2022 07:38-0400 Heart rate 73 /min Yudelka Moralez [employer] SP[employer] TEACHER-SENIOR TALENT ACQUISITION SPECIALIST Work Phone: [facility] 10-22-2022 07:38-0400 Systolic blood pressure 126 mm[Hg] Yudelka Moralez [employer] SP[employer]ISH TEACHER-SENIOR TALENT ACQUISITION SPECIALIST Work Phone: [facility] 10-07-2022 11:05-0400 Body height 157.5 cm Yudelka Moralez [employer] SP[employer]ISH TEACHER-SENIOR TALENT ACQUISITION SPECIALIST Work Phone: [facility] 10-07-2022 11:05-0400 Body mass index (BMI) [Ratio] 28.66 kg/m2 Yudelka Moralez [employer] TEACHER-SENIOR TALENT ACQUISITION SPECIALIST Work Phone: [facility] 10-07-2022 11:05-0400 Body temperature 98.2 [degF] Yudelka Moralez [employer] SP[employer]ISH TEACHER-SENIOR TALENT ACQUISITION SPECIALIST Work Phone: 5(235)[phone] [place] [address] 10-07-2022 11:05-0400 Body weight 71.08 kg Yudelka Moralez [employer] SP[employer] TEACHER-SENIOR TALENT ACQUISITION SPECIALIST Work Phone: [facility] 10-07-2022 11:05-0400 Diastolic blood pressure 74 mm[Hg] Yudelka Moralez [employer] SP[employer]ISH TEACHER-SENIOR TALENT ACQUISITION SPECIALIST Work Phone: 8(090)[phone] [place] [address] 10-07-2022 11:05-0400 Heart rate 81 /min Yudelka Moralez [employer] SP[employer] TEACHER-SENIOR TALENT ACQUISITION SPECIALIST Work Phone: [facility] 10-07-2022 11:05-0400 Respiratory rate 16 /min Yudelka Moralez [employer] SP[employer] TEACHER-SENIOR TALENT ACQUISITION SPECIALIST Work Phone: [facility] 10-07-2022 11:05-0400 SaO2% (BldA) [Mass fraction] 99 % Yudelka Moralez [employer] TEACHER-SENIOR TALENT ACQUISITION SPECIALIST Work Phone: [facility] 10-07-2022 11:05-0400 Systolic blood pressure 120 mm[Hg] Yudelka Moralez [employer] SP[employer]ISH TEACHER-SENIOR TALENT ACQUISITION SPECIALIST Work Phone: [facility] 08-19-2022 15:43-0500 Diastolic blood pressure 88 mm[Hg] Andreas Ortega MD, MPH Work Phone: [facility] 08-19-2022 15:43-0500 Systolic blood pressure 117 mm[Hg] Andreas Ortega MD, MPH Work Phone: [facility] 07-08-2022 07:50-0500 Body height 157.5 cm Andreas Ortega MD, MPH Work Phone: 2(409)[phone] [place] [address] 07-08-2022 07:50-0500 Body mass index (BMI) [Ratio] 28.73 kg/m2 Andreas Ortega MD, MPH Work Phone: 1(615)[phone] [place] [address] 07-08-2022 07:50-0500 Body temperature 98.01 [degF] Andreas Ortega MD, MPH Work Phone: 1(967)921-779271 [place] [address] 07-08-2022 07:50-0500 Body weight 71.26 kg Andreas Ortega MD, MPH Work Phone: 9(163)[phone] [place] [address] 07-08-2022 07:50-0500 Diastolic blood pressure 77 mm[Hg] Andreas Ortega MD, MPH Work Phone: 9(183)[phone] [place] [address] 07-08-2022 07:50-0500 Heart rate 73 /min Andreas Ortega MD, MPH Work Phone: 4(011)113-180471 [place] [address] 07-08-2022 07:50-0500 Respiratory rate 16 /min Andreas Ortega MD, MPH Work Phone: 0(043)[phone] [place] [address] 07-08-2022 07:50-0500 SaO2% (BldA) [Mass fraction] 98 % Andreas Ortega MD, MPH Work Phone: 0(453)[phone] [place] [address] 07-08-2022 07:50-0500 Systolic blood pressure 121 mm[Hg] Andreas Ortega MD, MPH Work Phone: 7(675)[phone] [place] [address] 06-09-2022 13:10-0500 Body mass index (BMI) [Ratio] 29.3 kg/m2 [facility] Work Phone: [facility] 06-09-2022 13:10-0500 Body temperature 98.6 [degF] Carlos Gomes [employer] [facility] Work Phone: [facility] 06-09-2022 13:10-0500 Body weight 72.67 kg Carlos [facility] Work Phone: [facility] 06-09-2022 13:10-0500 Diastolic blood pressure 60 mm[Hg] Carlos [facility] Work Phone: [facility] 06-09-2022 13:10-0500 Heart rate 80 /[facility] 06-09-2022 13:10-0500 Respiratory rate 16 /[facility] Work [facility] 06-09-2022 13:10-0500 SaO2% (BldA) [Mass fraction] 98 % [facility] Work Phone: [facility] 06-09-2022 13:10-0500 Systolic blood pressure 110 mm[Hg] Carlos [facility] Work Phone: [facility] 05-29-2022 07:32-0500 Body temperature 98.01 [degF] Suman Baker MD, PhD Work Phone: [facility] 05-29-2022 07:32-0500 Diastolic blood pressure 64 mm[Hg] Suman Baker MD, PhD Work Phone: [facility] 05-29-2022 07:32-0500 Heart rate 77 /min Suman Baker MD, PhD Work Phone: [facility] 05-29-2022 07:32-0500 Respiratory rate 16 /min Suman Baker MD, PhD Work Phone: [facility] 05-29-2022 07:32-0500 SaO2% (BldA) [Mass fraction] 99 % Suman Baker MD, PhD Work Phone: [facility] 05-29-2022 07:32-0500 Systolic blood pressure 100 mm[Hg] Suman Baker MD, PhD Work Phone: [facility] 05-22-2022 15:50-0400 Body height 157.5 cm Suman Baker MD, PhD Work Phone: 2(969)[phone] [address] 05-22-2022 15:50-0400 Body mass index (BMI) [Ratio] 30.73 kg/m2 Suman Baker MD, PhD Work Phone: 9(503)[phone] [address] 05-22-2022 15:50-0400 Body weight 76.2 kg Suman Baker MD, PhD Work Phone: 5(097)[phone] [place] [address] 03-31-2022 12:02-0400 Diastolic blood pressure 70 mm[Hg] [facility] [employer]IOR [employer]IS[employer] SPECIALIST Work Phone: 8([phone] [address] 03-31-2022 12:02-0400 Systolic blood pressure 124 mm[Hg] [facility] [employer]-SENIOR [employer]ALENT ACQUISITION SPECIALIST Work Phone: 4(698)[phone] [place] [address] 03-31-2022 11:53-0400 Body height 157.5 cm [facility] [employer]-SENIOR [employer]ALENT ACQUISITION SPECIALIST Work Phone: 5(421)[phone] [address] 03-19-2022 15:37-0400 Body height 158.3 cm Suman Baker MD, PhD Work Phone: 3(930)[phone] [address] 03-19-2022 15:37-0400 Body mass index (BMI) [Ratio] 30.63 kg/m2 Suman Baker MD, PhD Work Phone: [phone](715)[phone] [address] 03-19-2022 15:37-0400 Body temperature 97.5 [degF] Suman Baker MD, PhD Work Phone: 3(133)[phone] [address] 03-19-2022 15:37-0400 Body weight 76.75 kg Suman Baker MD, PhD Work Phone: [phone] [address] 03-19-2022 15:37-0400 Diastolic blood pressure 84 mm[Hg] Suman Baker MD, PhD Work Phone: [facility] 03-19-2022 15:37-0400 Heart rate 90 /min Suman Baker MD, PhD Work Phone: [facility] 03-19-2022 15:37-0400 Respiratory rate 16 /min Suman Baker MD, PhD Work Phone: [facility] 03-19-2022 15:37-0400 SaO2% (BldA) [Mass fraction] 98 % Suman Baker MD, PhD Work Phone: [facility] 03-19-2022 15:37-0400 Systolic blood pressure 128 mm[Hg] Suman Baker MD, PhD Work Phone: [facility] 12-22-2021 18:05-0400 Body height 152.4 cm Ava Hooverault Other [employer] Other 12-22-2021 18:05-0400 Body mass index (BMI) [Ratio] 30.62 kg/m2 Ava Hooverault Other [employer] Other 12-22-2021 18:05-0400 Body temperature 99 [degF] Ava Hooverault Other [employer] Other 12-22-2021 18:05-0400 Body weight 71.12 kg Ava Hooverault Other [employer] Other 12-22-2021 18:05-0400 Diastolic blood pressure 89 mm[Hg] Ava Hooverault Other [facility] Other 12-22-2021 18:05-0400 Respiratory rate 16 /min Ava Tamika Other [facility] Other 12-22-2021 18:05-0400 SaO2% (BldA) [Mass fraction] 99 % Ava Lundberg Other [facility] Other 12-22-2021 18:05-0400 Systolic blood pressure 129 mm[Hg] Ava Lundberg Other [facility] Other Encounters Encounter Date Encounter Type Care Provider Facility Start: 11-11-2023 End: 11-11-2023 ambulatory LIZBET SERENE Not Available Start: 11-08-2023 ambulatory SELF SELF Facility:[facility] Start: 11-06-2023 ambulatory ANDREAS ORTEGA Facility: [facility] Start: 11-06-2023 End: 11-06-2023 Subsequent hospital visit by physician Andreas Ortega MD, MPH Work Phone: [facility] Comment on above: Arrived Start: 10-04-2023 End: 10-04-2023 ambulatory LIZBET SERENE Not Available Start: 09-25-2023 End: 09-25-2023 ambulatory Ron Alden Facility:[facility] Start: 09-20-2023 End: 09-20-2023 ambulatory RON [...] lavonne Start: 08-09-2023 End: 08-09-2023 ambulatory LIZBET SERENE Not Available Start: 07-14-2023 End: 07-14-2023 ambulatory RON ALDEN Not Available Start: 06-01-2023 End: 06-01-2023 ambulatory RON ALDEN Not Available Start: 04-06-2023 ambulatory [facility] Facility: [facility] Start: 03-17-2023 ambulatory [facility] Facility: [facility] Start: 03-11-2023 ambulatory SELF SELF Facility:[facility] Start: 03-11-2023 End: 03-11-2023 Clinical Support Encounter Suman Baker MD, PhD Work Phone: Clinical [facility] 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 Start: 03-11-2023 ambulatory [facility] Facility: [facility] Start: 03-11-2023 End: 03-11-2023 Subsequent hospital visit by physician Farshad Vigil [employer]-SENIOR TALENT ACQUISITION SPECIALIST Work Phone: Imaging Outpatient Care [facility] Comment on above: Arrived Start: 01-04-2023 ambulatory [facility] Facility: [facility] Start: 12-16-2022 ambulatory [facility] Facility: [facility] Start: 12-10-2022 End: 12-10-2022 Office outpatient visit 15 minutes Suman Baker MD, PhD Work Phone: Division of Surgical Oncology 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) Start: 12-10-2022 ambulatory [facility] Facility: [facility] Start: 11-30-2022 End: 11-30-2022 ambulatory [facility] Facility: Start: 10-22-2022 End: 10-22-2022 Office outpatient new 60 minutes Rebekah Suero MD Work Phone: [facility] Comment on above: Fibromyalgia muscle pain (Primary Dx) Start: 10-22-2022 End: 10-22-2022 Subsequent hospital visit by physician Yudelka Moralez [employer]-SENIOR TALENT ACQUISITION SPECIALIST Work Phone: [facility] [place] Start: 10-22-2022 End: 10-22-2022 Subsequent hospital visit by physician Yudelka Moralez [employer]-SENIOR TALENT ACQUISITION SPECIALIST Work Phone: [facility] [place] Comment on above: Arrived Start: 10-07-2022 End: 10-07-2022 Office outpatient visit 25 minutes Yudelka Moralez [employer]-SENIOR TALENT ACQUISITION SPECIALIST Work Phone: Division of Medical Oncology Comment [...] medical examination without abnormal findings ERIN SAMS [facility] Start: 08-31-2022 End: 09-01-2022 ambulatory ERIN SAMS Facility:[facility] Start: 08-31-2022 End: 09-01-2022 Encounter for general adult medical examination without abnormal findings ERIN SAMS Facility:[facility] Start: 08-24-2022 End: 08-25-[address] DOCTOR GREGORY Facility:[facility] Start: 08-19-2022 End: 08-19-2022 Subsequent hospital visit by physician Andreas Ortega MD, MPH Work Phone: Department of Radiology Comment on above: Arrived Start: 08-19-2022 End: 08-19-2022 Subsequent hospital visit by physician Yudelka OLEARY Work Phone: [facility] Comment on above: Arrived Start: 08-12-2022 End: 08-12-2022 ambulatory ERIN SAMS Facility:[facility] Start: 08-05-2022 End: 08-05-2022 ambulatory ERIN SAMS Facility:[facility] Start: 07-08-2022 End: 07-08-2022 Office consultation new/estab patient 80 min Andreas Ortega MD, MPH Work Phone: Division of Medical Oncology 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 [facility] Start: 04-04-2022 End: 04-05-2022 ambulatory ERIN SAMS Facility:[facility] Start: 04-04-2022 End: 04-05-2022 Encounter for preprocedural laboratory examination ERIN SAMS Facility:[facility] Start: 03-31-2022 End: 03-31-2022 Subsequent hospital visit by physician Carlos Gomes [employer]-SENIOR TALENT ACQUISITION SPECIALIST Work Phone: [facility] [place] Comment on above: Arrived Start: 03-19-2022 End: [...] 12-22-2021 End: 12-22-2021 ambulatory Ava Lundberg Other [facility] Other Start: 12-22-2021 Office outpatient vi sit 15 minutes Ava Lundberg [facility] Procedures Date Procedure Procedure Detail Performing Clinician Start: 03-11-2023 Mri abdomen w/o cont rast material Yudelka Moralez [employer]-SENIOR TALENT ACQUISITION SPECIALIST Work Phone: Start: 10-22-2022 Echo tthrc r-t 2d w/wom-mode compl spec&colr d Yudelka Kirt [employer]-SENIOR TALENT ACQUISITION SPECIALIST Work Phone: Start: 10-22-2022 Ct soft tissue neck w/contrast material Yudelka Kirt [employer]-SENIOR TALENT ACQUISITION SPECIALIST Work Phone: Start: 10-22-2022 Ct thorax w/contrast material Yudelka Kirt [employer]-SENIOR TALENT ACQUISITION SPECIALIST Work Phone: Start: 10-07-2022 Natriuretic peptide Yudelka Kirt [employer]-SENIOR TALENT ACQUISITION SPECIALIST Work Phone: Start: 08-19-2022 Creatinine blood Marciano Ortega MD, MPH Work Phone: Start: 08-19-[address] atten uation skull base mid-thigh Yudelka Kirt [employer]-SENIOR TALENT ACQUISITION SPECIALIST Work Phone: Start: 05-29-2022 Assay of magnesium [...] Other Other Start: 05-22-2022 Bilirubin direct José rAnold MD Work Phone: Start: 05-22-2022 Calcium ionized Suman Baker MD, PhD Work Phone: Start: 05-22-2022 CONTINUOUS CARDIAC MONITORING STRIP Other Other Start: 05-22-2022 Antibody screen Suman cha MD, PhD Work Phone: Start: 05-22-2022 Calcium ionized Suman [...] 03-31-2022 Ct thorax w/contrast material Carlos Gomes [employer]-SENIOR TALENT ACQUISITION SPECIALIST Work Phone: Start: 03-19-2022 CBC AND ELECTRONIC DIFF Carlos Gomes [employer]-SENIOR TALENT ACQUISITION SPECIALIST Work Phone: Start: 03-19-2022 Complete blood count with white cell differential, automated Carlos Mendoza [place] [employer]-SENIOR TALENT ACQUISITION SPECIALIST Work Phone: Start: 03-19-2022 Comprehensive metabo lic panel Carlos Gomes [employer]-SENIOR TALENT ACQUISITION SPECIALIST Work Phone: Plan of Treatment Date Care Activity Detail Author Start: 03-19-2024 Influenza vaccination INFLUENZA VACCINE (Season Ended) [facility] Start: 11-08-2023 End: 11-08-2023 Telemedicine consultation with patient 11/08/2023 11:00 AM EDT Telemedicine Division of Medical Oncology [address] [place] [phone] Yudelka Moralez [employer]-SENIOR TALENT ACQUISITION SPECIALIST [address] [place] [address] Division of Medical Oncology Start: 10-28-2023 End: 10-28-2023 Patient encounter procedure 10/28/2023 1:00 PM EDT Office Visit [facility] [place] [address] [place] [address] Kelton Cabrera Jr., MD [address] [place] [address] [facility] [place] Start: 09-08-2023 End: 09-08-2023 Patient encounter procedure 09/08/2023 10:40 AM EST Routine [facility] [address] [place] [address] Ron uRano DO [address] [place] [address] [facility] Start: 06-17-2023 End: 06-17-2023 Patient encounter procedure 06/17/2023 1:30 PM EST Office Visit Division of Surgical Oncology [address] [place] [phone] Suman Baker MD, PhD [address] [place] [address] Division of Surgical Oncology Start: 06-17-2023 End: 06-17-2023 Patient encounter procedure 06/17/2023 12:20 PM EST Appointment Imaging [facility] [address] [facility] [address] [place] [address] Suman Baker MD, PhD [address] [place] [address] Imaging [facility] Start: 03-19-2023 Influenza vaccination [facility] Start: 03-17-2023 End: 03-17-2023 Patient encounter procedure Division of Medical Oncology Start: 03-11-2023 End: 03-11-2023 Patient encounter procedure 03/11/2023 Office Visit Surgical Oncology Suman Baker MD, PhD [address] [place] [address] Division of Surgical Oncology Start: 03-11-2023 End: 03-11-2023 Patient encounter procedure Imaging Outpatient [facility] Start: 12-22-2022 End: 12-22-2022 Patient encounter procedure 12/22/2022 Office Visit Cardiovascular Medicine Marisela Velásquez, [employer]-SENIOR TALENT ACQUISITION SPECIALIST [address] [place] [address] Cardiology [facility] 5 Start: 12-17-2022 End: 12-17-2022 Patient encounter procedure 12/17/2022 Office Visit Oncology Andreas Ortega MD, MPH [address] [place] [address] Division of Medical Oncology Start: 12-10-2022 End: 12-11-2023 CT Abdomen and Pelvis W contrast IV CT ABDOMEN/PELVIS WITH CONTRAST Imaging Routine Primary malignant neuroendocrine tumor of appendix Expected: 12/10/2022, Expires: 12/11/2023 [facility] Comment on above: Expected: 12/10/2022, Expires: Start: 12-10-2022 End: 12-11-2023 CT Chest W contrast IV CT CHEST WITH CONTRAST Imaging Routine Primary malignant neuroendocrine tumor of appendix Expected: 12/10/2022, Expires: 12/11/2023 [facility] Comment on above: Expected: 12/10/2022, Expires: 4 Start: 12-10-2022 End: 12-10-2022 Patient encounter procedure [facility] Start: 12-07-2022 End: 06-09-2023 CT Abdomen and Pelvis W contrast IV CT ABDOMEN/PELVIS WITH CONTRAST Imaging Routine Primary malignant neuroendocrine tumor of appendix Expected: 12/07/2022, Expires: 06/09/2023 [facility] Comment on above: Expected: 12/07/2022, Expires: 3 Start: 11-05-2022 End: 11-05-2022 Patient encounter procedure 11/05/2022 Office Visit Oncology Andreas Ortega MD, MPH [address] [place] [address] Division of Medical Oncology Start: 10-27-2022 End: 10-27-2022 Patient encounter procedure 10/27/2022 Office Visit Cardiovascular Medicine Cheikh Coelho MD [address] [place] [phone] Cardiology [facility] 5 Start: 10-27-2022 End: 10-27-2022 ambulatory 10/27/2022 Telemed Clin Support Genetics Erin Stoner, [facility] [address] [place] [address] Division of Human Genetics Start: 10-21-2022 Subsequent hospital visit by physician 10/21/2022 Hospital Encounter Computerized Tomography Scan Yudelka Moralez, [employer]-SENIOR TALENT ACQUISITION SPECIALIST [address] [place], [place] [phone] [facility] [place] Start: 10-21-2022 End: 10-21-2022 Patient encounter procedure 10/21/2022 Appointment Echocardiography Yudelka Moralez, [employer]-SENIOR TALENT ACQUISITION SPECIALIST [address] [place] [address] [facility] [place] Start: 10-07-2022 End: 10-08-2023 CT Chest W contrast IV CT CHEST WITH CONTRAST Imaging Routine Carcinoid syndrome SOB (shortness of breath) Tachycardia Primary malignant neuroendocrine tumor of appendix Expected: 10/07/2022, Expires: 10/08/2023 [facility] Comment on above: Expected: 10/07/2022, Expires: Start: 10-07-2022 End: 10-08-2023 CT Neck W contrast IV CT NECK WITH CONTRAST Imaging Routine Primary malignant neuroendocrine tumor of appendix Expected: 10/07/2022, Expires: 10/08/2023 [facility] Comment on above: Expected: 10/07/2022, Expires: 4 Start: 08-26-2022 End: 08-26-2022 Telemedicine consultation with patient 08/26/2022 Telemedicine Oncology Andreas Ortega MD, MPH [address] [place] [address] [address] [place] [phone] Division of Medical Oncology Start: 08-19-2022 End: 08-19-2022 Patient encounter procedure Imaging [facility] Start: 07-08-2022 End: 07-08-2023 Complete blood count with white cell differential, automated CBC, EDIF, PLATELET Lab Routine Primary malignant neuroendocrine tumor of appendix Expected: 07/08/2022, Expires: 07/08/2023 [facility] Comment on above: Expected: 07/08/2022, Expires: 3 Start: 07-08-2022 End: 07-08-2023 Comprehensive metabolic 2000 panel - Serum or Plasma COMPREHENSIVE METABOLIC PANEL Lab Routine Primary malignant neuroendocrine tumor of appendix Expected: 07/08/2022, Expires: 07/08/2023 [facility] Comment on above: Expected: 07/08/2022, Expires: 3 Start: 07-08-2022 End: 07-08-2023 CT Abdomen and Pelvis WO and W contrast IV CT ABDOMEN/PELVIS WITH AND WITHOUT CONTRAST Imaging Routine Primary malignant neuroendocrine tumor of appendix Expected: 07/08/2022, Expires: 07/08/2023 [facility] Comment on above: Expected: 07/08/2022, Expires: 3 Start: 07-08-2022 End: 07-08-2023 Lactate dehydrogenase [Enzymatic activity/volume] in Serum or Plasma LACTATE DEHYDROGENASE Lab Routine Primary malignant neuroendocrine tumor of appendix Expected: 07/08/2022, Expires: 07/08/2023 [facility] Comment on above: Expected: 07/08/2022, Expires: 3 Start: 07-08-2022 End: 07-08-2023 PT Skull base to mid-thigh NUC PET NEUROENDOCRINE Imaging Routine Primary malignant neuroendocrine tumor of appendix Expected: 07/08/2022, Expires: 07/08/2023 [facility] Comment on above: Expected: 07/08/2022, Expires: 3 Start: 07-08-2022 End: 07-08-2022 Patient encounter procedure 07/08/2022 Office Visit Oncology Andreas Ortega MD, MPH [address] [place] [phone] Division of Medical Oncology Start: 07-06-2022 End: 07-06-2022 Telemedicine consultation with patient 07/06/2022 Telemedicine Surgical Oncology Carlos Gomes APRN-SENIOR TALENT ACQUISITION SPECIALIST [address] [place] [address] [facility] [place] Start: 06-09-2022 End: 06-09-2022 Patient encounter procedure 06/09/2022 Office Visit Surgical Oncology Carlos Gomes APRN-SENIOR TALENT ACQUISITION SPECIALIST [address] [place] [address] Division of Surgical Oncology Start: 04-21-2022 End: 04-21-2022 Evaluation and management of inpatient 04/21/2022 Surgery Multispecialty Suman Baker MD, PhD [address] [place] [address] COLECTOMY PARTIAL LAPAROSCOPIC CCCT PERIOP Comment on above: COLECTOMY PARTIAL LAPAROSCOPIC Start: 04-21-2022 End: 04-21-2022 Laparoscopy colectomy partial w/anastomosis COLECTOMY PARTIAL LAPAROSCOPIC Primary malignant neuroendocrine tumor of appendix 04/21/2022 7:15 AM EDT [facility] Start: 04-21-2022 Evaluation and management of inpatient 04/21/2022 Hospital Encounter Multispecialty Suman Baker MD, PhD [address] [place] [address] Primary malignant neuroendocrine tumor of appendix [facility] Comment on above: Primary malignant neuroendocrine tumor o f appendix Start: 03-19-2022 End: 03-19-2023 Colonoscopy flx dx w/collj spec when pfrmd DIAGNOSTIC COLONOSCOPY GI/Bronch STAT Primary malignant neuroendocrine tumor of appendix Expected: 03/19/2022, Expires: 03/19/2023 [facility] Comment on above: Expected: 03/19/2022, Expires: 3 Start: 03-19-2022 Influenza vaccination INFLUENZA VACCINE (#1) [facility] Start: 03-19-2022 End: 03-19-2023 TYPE AND SCREEN - PREADMISSION TYPE AND SCREEN - PREADMISSION Blood Bank Routine Primary malignant neuroendocrine tumor of appendix Expected: 03/19/2022, Expires: 03/19/2023 [facility] Work Phone: Comment on above: Expected: 03/19/2022, Expires: 3 Start: 07-10-2021 COVID-19 VACCINE (2 - Pfizer risk series) COVID-19 VACCINE (2 - Pfizer risk series) [facility] Start: 07-10-2021 COVID-19 VACCINE (2 - Pfizer series) COVID-19 VACCINE (2 - Pfizer series) [facility] Start: 08-14-2020 Tetanus vaccination TETANUS [facility] Start: 2018 Screening for malignant neoplasm of cervix CERVICAL CANCER SCREENING DISCUSSION [facility] Start: 2016 Third diphtheria, tetanus and acellular pertussis (DTaP) vaccination TDAP (ADULT) [facility] Start: 2016 Zoster vaccine hzv live for subcutaneous use ZOSTER (SHINGLES) VACCINE (1 of 2) [facility] Start: 2015 Tetanus vaccination TETANUS [facility] Start: 2013 Screening for Chlamydia trachomatis CHLAMYDIA SCREEN [facility] Start: 2012 HIV screening HIV SCREENING DISCUSSION [facility] Start: 02-11-2011 Vaccination for human papillomavirus HPV VACCINE ADOL (2 - 2-dose series) [facility] Start: 09-11-2010 Vaccination for human papillomavirus HPV VACCINE ADOL (2 - Risk 3-dose series) [facility] Start: 2008 Vaccination for human papillomavirus HPV VACCINE ADOL (1 - 2-dose series) [facility] Start: 2003 PNEUMOCOCCAL VACCINE SERIES (1 - PCV) PNEUMOCOCCAL VACCINE SERIES (1 - PCV) [facility] Start: 2003 PNEUMOCOCCAL VACCINE SERIES (1 of 2 - PCV) PNEUMOCOCCAL VACCINE SERIES (1 of 2 - PCV) [facility] Start: 1997 GONORRHEA SCREEN GONORRHEA SCREEN [facility] Start: 1997 Hepatitis C antibody, confirmatory test HEPATITIS C VIRUS SCREENING [facility] Start: 1997 Hepatitis C screening HEPATITIS C VIRUS SCREENING [facility] Start: 1997 Screening for Chlamydia trachomatis GONORRHEA SCREEN [facility] CHROMOGRANIN A CHROMOGRANIN A L ab Routine Primary malignant neuroendocrine tumor of appendix 03/11/2023 11:44 AM EDT [facility] Work Phone: End: 03-31-2022 CT Abdomen and Pelvis W contrast IV [facility] Work Phone: Comment on above: 1 Occurrences starting 03/31/2022 until 03/31/2022 End: 08-14-2022 CT Abdomen and Pelvis WO and W contrast IV [facility] Work Phone: Comment on above: 1 Occurrences starting 08/14/2022 until 08/14/2022 End: 11-06-2023 CT Abdomen and Pelvis WO and W contrast IV [facility] Comment on above: 1 Occurrences starting 11/06/2023 until 11/06/2023 Ecg routine ecg w/le ast 12 lds trcg only w/o i&r MA ECG, TRACING ONLY MA - OFFICE PERFORMED Routine Primary malignant neuroendocrine tumor of appendix Ordered: 03/19/2022 [facility] Comment on above: Ordered: 03/19/2022 Echocardiography ECHOCARDIOGRAM Echocardiography Routine Carcinoid syndrome SOB (shortness of breath) Tachycardia Ordered: 10/07/2022 [facility] Comment on above: Ordered: 10/07/2022 Laparoscopy colectom y partial w/anastomosis COLECTOMY PARTIAL LAPAROSCOPIC Primary malignant neuroendocrine tumor of appendix [facility] End: 03-09-2023 Magnetic resonance imaging of abdomen and pelvis with contrast MRI ABDOMEN/PELVIS WITHOUT AND WITH CONTRAST Imaging Routine Primary malignant neuroendocrine tumor of appendix 1 Occurrences starting 03/09/2023 until 03/09/2023 [facility] Comment on above: 1 Occurrences starting 03/09/2023 until 03/09/2023 Removal of kike MA STAPLE REM OVAL MA - OFFICE PERFORMED Routine Primary malignant neuroendocrine tumor of appendix Ordered: 06/09/2022 [facility] Comment on above: Ordered: 06/09/2022 SURG PATH REQUEST [facility] Comment on above: Release Upon Ordering for 1 Occurrences starting 05/22/2022, 1 completed Immunizations Immunization Date Immunization Notes Care Provider Chhaya dhillon 04-28-2021 influenza virus vaccine, unspecified formulation Carlos OLEARY Work Phone: [facility] Payers Date Payer Category Payer Self-pay 2022 Unknown [id number] 2021 Managed Care HMO (unspecified) [employer] H[employer] HMO [id number] 2021-Present [address] [place] [address] HMO [id number] 2021 Unknown [employer] P[employer]ERRED PPO [id number] 2021-Present [phone] [address] [place] [address] PPO [id number] 1997 Unknown [id number] 2.16.840.1.879108.3.579.2 .593 1997 Unknown [id number] 2.16.840.1.044958.3.579.2 .593 1997 Unknown [id number] 2.16.840.1.705986.3.579.2 .593 1997 Unknown [id number] 2.16.840.1.310586.3.579.2 .593 1997 Unknown [id number] 2.16.840.1.739491.3.579.2 .593 1997 Unknown [id number] 2.16.840.1.226635.3.579.2 .593 1997 Unknown [id number] 2.16.840.1.853169.3.579.2 .593 1997 Unknown [id number] 2.16.840.1.585306.3.579.2 .593 1997 Unknown [id number] 2.16.840.1.305006.3.579.2 .593 1997 Unknown [id number] 2.16.840.1.895541.3.579.2 .593 1997 Unknown [id number] 2.16.840.1.005390.3.579.2 .593 1997 Unknown [id number] 2.16.840.1.083449.3.579.2 .593 1997 Unknown [id number] 2.16.840.1.724897.3.579.2 .593 1997 Unknown [id number] 2.16.840.1.234782.3.579.2 .593 1997 Unknown [id number] 2.16.840.1.801793.3.579.2 .593 1997 Unknown [id number] 2.16.840.1.493689.3.579.2 .593 1997 Unknown [id number] 2.16.840.1.042769.3.579.2 .593 1997 Unknown [id number] 2.16.840.1.076622.3.579.2 .594 1997 Unknown [id number] 2.16.840.1.939257.3.579.2 .594 1997 Unknown [id number] 2.16.840.1.624768.3.579.2 .594 1997 Unknown [id number] 2.16.840.1.218280.3.579.2 .594 1997 Unknown [id number] 2.16.840.1.525618.3.579.2 .594 1997 Unknown [id number] 2.16.840.1.168555.3.579.2 .594 1997 Unknown [id number] 2.16.840.1.140026.3.579.2 .594 1997 Unknown [id number] 2.16.840.1.480442.3.579.2 .594 1997 Unknown [id number] 2.16.840.1.531218.3.579.2 .594 1997 Unknown [id number] 2.16.840.1.366417.3.579.2 .594 1997 Unknown [id number] 2.16.840.1.532298.3.579.2 .594 1997 Unknown [id number] 2.16.840.1.258593.3.579.2 .594 1997 Unknown [id number] 2.16.840.1.399706.3.579.2 .594 1997 Unknown [id number] 2.16.840.1.592877.3.579.2 .1259 1997 Unknown [id number] 2.16.840.1.805453.3.579.2 .1259 1997 Unknown [id number] 2.16.840.1.533089.3.579.2 .1259 1997 Unknown [id number] 2.16.840.1.156639.3.579.2 .1259 1997 Unknown [id number] 2.16.840.1.953093.3.579.2 .1259 1997 Unknown [id number] 2.16.840.1.145859.3.579.2 .1259 1997 Unknown [id number] 2.16.840.1.923566.3.579.2 .1259 1997 Unknown [id number] 2.16.840.1.840210.3.579.2 .1259 1997 Unknown [id number] 2.16.840.1.062434.3.579.2 .1259 1959 Unknown [id number] Unknown [id number] 2.16840.1.250655.19 Unknown [id number] 2.16.840.1.425702.3.579.2 .531 Social History Date Type Detail Facility Unknown if ever smoked [facility] Other Start: 12-16-2022 End: 03-11-2023 Sex Assigned At [facility] Tobacco smoking stat us NHIS Tobacco smoking consumption unknown [facility] Work Phone: Start: 1997 Sex Assigned At Not on file [facility] Start: 03-19-2022 End: 04-14-2022 Tobacco smoking status NHIS Never smoked tobacco [facility] Start: 03-31-2022 End: 11-06-2023 Alcohol intake Ex-drinker (finding) [facility] Start: 03-19-2022 History SDOH Alcohol Comment last alchohol 2019; mixed drink rarely [facility] Start: 04-14-2022 Tobacco use and exposure Smokeless tobacco non-user [facility] Start: 05-12-2022 End: 08-19-2022 Exposure to SARS-CoV-2 (event) Not sure [facility] Start: 06-28-2022 End: 07-08-2022 Exposure to SARS-CoV-2 (event) Unable to assess [facility] Start: 12-16-2022 End: 03-11-2023 History of Social function [facility] Adolescent depressio n screening assessment 1 [facility] Start: 01-12-2023 [facility] Start: 1995 Sex Assigned At Female [facility] Start: 01-25-2023 Gender identity Identifies as female gender (finding) [facility] Start: 01-25-2023 Sexual orientation Heterosexual (finding) [facility] Goals Date Patient Goal Desired Activity /State Personal health goal Clinical Notes 12-22-2021 to 08-24-2023 DO Galina Riggins 08/24/2023 10:10 [facility]/10[facility]22 12:30 PM Malathi Vigil [employer] [facility]ISH [facility] - 12/10/2022 12:30 PM EDTPatient InstructionsPatient [...] nursing note reviewed. Exam conducted with a wrist liner present. Vitals: Estimated body mass index is 32.44 kg/m as calculated from the following: Height as of 23: 5' 3 . Weight as of this [...] Ron Ruano DO documented in this encounter [facility] 12-10-2022 History of Present illness Narrative Chief Complaint: Chief Complaint Patient presents with Follow-up HPI: Zainab Swift is a 27 y.o. female who presents to [facility] for post-operative [...] (Patient not taking: Reported on 07/06/2022) Pancrelipase, Rsv-Nsjh-Mvgl, (Creon) [id number] units Cap DR Particles Take two caps [...] 27 y.o. female who presents to [facility] for post-operative [...] (Patient not taking: Reported on 07/06/2022) Pancrelipase, Tfj-Mvmz-Aulk, (Creon) [id number] units Cap DR Particles Take two caps [...] interviewed and examined this patient with the BIOMETRICIAN/fellow/resident. I reviewed the history and exam detailed [...] months with repeat imaging. Suman Baker MD/PhD vp security Division of Surgical Oncology Department of Surgery documented in this encounter [facility] 12-10-2022 Instructions MAMTA Villagran - 12/10/2022 12:30 PM EDT documented in this encounter [facility] 10-22-2022 History of Present illness Narrative [...] ulcers, vision changes. She endorses fatigue with gis analyst but overall able to do everything on [...] Surgeon: Suman Baker MD, PhD; [facility] COLECTOMY PARTIAL OPEN Right 05/22/2022 Laterality: Right; Surgeon: Suman Baker MD, PhD; Location: [facility] MA[facility] OR DEBULKING INTRA-ABDOMINAL/PELVIC/RETROPERIT FLEMING W/ OMENECTOMY & PELVIC PARA-AORTIC LYMPHADENECTOMY N/A 05/22/2022 Laterality: N/A; Surgeon: Suman Baker MD, PhD; [facility] MA[facility] OR COLECTOMY PARTIAL LAPAROSCOPIC N/A 04/21/2022 Laterality: N/A; Surgeon: Suman Baker MD, PhD; Location: [facility] MAIN OR COLONOSCOPY DIAGNOSTIC 04/08/2022 APPENDECTOMY LAPAROSCOPIC 02/03/2022 [place], [place] Family History Problem Relation Age of [...] Reported on 07/06/2022) 30 tablet 0 Pancrelipase, Oht-Flgj-Mcwt, (Creon) [id number] units Cap DR Particles Take two caps [...] 10/22/2022 0.14 m/s Final e' lateral pk arj 10/22/2022 0.16 m/s Final FS 10/22/2022 35 [...] status. Plan was reviewed and discussed with Rebekah Suero MD I saw Zainab Nichocurt with Dr. Alexander. I have performed my [...] labs and discussed with oncology and cardiology Rebekah Suero MD documented in this encounter [facility] 10-22-2022 Instructions Rebekah Suero MD - 10/22/2022 2:00 PM EDT [...] Rub Alcohol hand rub, also called hand cv rn, can be used instead of soap and [...] they are dry, atleast 20-30 seconds. [facility]. This handout is for informational purposes only. Talk with your doctor or healthcare team if you have any questions about your care. For more health information call the [employer] for Health Information at [phone] or email: [email or web address]. documented in this encounter [facility] 10-22-2022 History of Present illness Narrative Intravenous access obtained and remained for next appointment in cardioology at [facility]. 22 gauge IV in left ac. Dressing intact and/or coban used to secure access. Patient instructed to report directly to next appointment. documented in this encounter [facility] 10-07-2022 Note Acute Coronary Syndr ome (ACS): Initial Evaluation and Management: [email or web address] [email or web address] [facility] 10-07-2022 History of Present illness Narrative [...] able to do housework. 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 Eating ok. Weight [...] Reported on 07/06/2022) 30 tablet 0 Pancrelipase, Uax-Fnqa-Ilgb, (Creon) [id number] units Cap DR Particles Take two caps [...] Surgeon: Suman Baker MD, PhD; [facility] MA[facility] OR COLECTOMY PARTIAL LAPAROSCOPIC N/A 04/21/2022 Laterality: N/A; Surgeon: Suman Baker MD, PhD; Location: [facility] MAIN OR COLONOSCOPY DIAGNOSTIC 04/08/2022 APPENDECTOMY LAPAROSCOPIC 02/03/2022 [place], [place] Past medical, surgical, family, and social [...] symptoms. MAMTA Travis End[facility] Tumor [facility] Ghulam Barcenas [facility] and [facility]am[facility] [place] To discuss with Dr. Ortega documented in this encounter [facility] 10-07-2022 Instructions Johana Lutz RN - 10/07/2022 11:30 AM EDT Return to clinic: with Dr. Ortega (video) to regroup on 4/20, (after the following tests), Zainab, if tests neg and you feel good, let us know so we can cancel the visit. Scans/labs: ECHO/CT N/C next available. F/up troponin/BNP from today Treatment: Mary Kate locally Referrals: Cardiology referral Referral to rheumatology Dr. Suero due to + HUNTER (09/04/2022) Abdominal binder script to Zainab Thank you for choosing [facility] for your cancer care. FMLA/Disability forms: Please allow up to 2 weeks for the forms to be returned to you +++ should you need any FMLA, Short term disability or termite exterminator helper disability forms filled out please fax them to F) [phone] ++++ Refill requests: Please allow 24-48 hours for a response My chart message response: PLEASE DO NOT SEND IN URGENT/EMERGENT MESSAGES VIA MY CHART. Please allow up to 24-48 hours for a response via my chart. Should you have questions or concerns, please call [phone] documented in this encounter [facility] 07-08-2022 History of Present illness [...] quickly and requires nap. 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 Better appetite with [...] OR COLONOSCOPY DIAGNOSTIC 04/08/2022 APPENDECTOMY LAPAROSCOPIC 02/03/2022 [place], [place] Social History Socioeconomic History Marital status: [...] recommendations. MAMTA Travis Neuroendocrine Tumor Program [facility] Addendum by Dr. Ortega: IAttending Addendum:I [...] with hx of mood disorder, GERD since 2012 on PPI prn, a diagnosis of grade [...] She was [facility] Suman [facility] in 03[facility] chest revealed a [...] and fatigue. ECOG PS 1. 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 1. Metastatic, well differentiated, grade 1, appendicular [...] placebo groups was 14.3 and 6 months (p=[id number]), respectively. The CLARINET study, [which enrolled patients [...] 2. LAMN: Discussed with Dr. Vinicius Gomes/[facility] who recommended active surveillance. No role for adjuvant systemic therapy. Patient will continue to follow with Dr. Suman Baker. 3. Hx of NET in family: referral to genetics 4. Transaminitis: discontinue hepatotoxins/acetaminophen. Repeat LFTs at [facility]. documented in this encounter [facility] 07-08-2022 Instructions Yina Amaya RN - [...] dizziness, drowsiness Referrals: Genetic referral to Ronda EMERY to do: Nursing education: New patient package Avoid hepatotoxic agents including stopping Tylenol Cancel pathology-done documented in this encounter [facility] 06-09-2022 History of Present illness Narrative Chief Complaint: Chief Complaint Patient presents with Follow-up HPI: Zainab Swift is a 27 y.o. female who presents to [facility] for post-operative [...] status. MAMTA Carrion documented in this encounter [facility] 06-09-2022 Instructions Veronique Calvin RN - 06/09/2022 1:15 PM EST Tele health visit with Carlos Gomes CNP in 4 weeks on a Wednesday. Referral placed to neuroendocrine oncology. Return in [address] Baker with scans same day. documented in this encounter [facility] 05-29-2022 Note Formatting of this n [...] via wheelchair with all belongings at 1147. [facility] 05-29-2022 Miscellaneous Notes Patient and spouse [...] and assistance is needed, please page the chef concierge PCRM at [phone]. Patient did well overnight. Patient pain mostly being controlled with epidural, but scheduled medications controlling her mild to moderate breakthrough pain. Patient with steady gait and only needig needing stand-by assistance. Patient now with bowel function and feeling hungry. Patient hopefully to have diet started today. Patient was able to be up in walking with stand-by assistance from multiple times yesterday. 2124: [facility] paged: Rm [phone], Kryling: FYI pt states that she can't tolerate taking the olanzapine disintegrating tablet because of the NG. Thanks [id number] Q1 safety rounds completed. Patient pain controlled [...] Providers Updated In IHIS Yes Contact Information Stone Planer/SW Added to Care Team Yes This Sole Leather Cutting Machine Operator is Primary Stone Planer/SW Yes (Antonio Jiang RN [facility] [phone]) Stone Planer Name Pinky Barcenas RN [facility] Stone Planer's Social Work Contact Name Bailey Magallanes [facility], [facility] Teacher Private's Living Environment Lives With spouse Living Arrangements [...] Education And Care For Discharge? Phill Swift [phone] Can Support Person Meet The Care Needs Of The Patient? 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 Employment/Financial Concerns no Source Of Income salary/wages Financial Concerns none Insurance Medical Insurance Verified Yes Prescription Coverage Yes Pharmacy updated in [facility] Yes Initial Discharge Planning Home Care Services (PLUMBING TECHNICIAN) No Home Therapies (PLUMBING TECHNICIAN) None DME (PLUMBING TECHNICIAN) None Medical Supplies (PLUMBING TECHNICIAN) None Patient Goal for Discharge Return home with assistance from family and friends Anticipated discharge disposition Home Anticipated Services at Discharge Outpatient follow up Anticipated Changes Related to Illness none Current Discharge Risk high risk diagnoses (i.e., CHF, Stroke, DM, chronic pain, abdominal pain, nausea and vomiting) Transportation Available car Home Care Services (PLUMBING TECHNICIAN) Additional Home Care Services (PLUMBING TECHNICIAN) no Assessment/Concerns to be Addressed Concerns [...] Medical team updated. 1512: Report called to Jevno EMERY on 12 Isrrael. All questions answered. 1514: Patient discharged from [facility] PACU per protocol. Patient transported via gurney with side rails up x2 with HOB>30 degrees to room 1204 [facility] by Natalia EMERY and Dang LISA. Family called to patient's bedside. 1310: Patient arrives in [facility] PACU from OR via gurney with side rails up x2 with HOB >30 degrees, accompanied by Anesthesiologist: Vinicius Gupta DO; Chayo Benson MD Mri Technician: VIJAYA Gamboa; VIJAYA Lopez Application Penetration Tester Assisting: Richard Bradshaw MD Trestle Builder: Wali Art. Patient placed on monitors, VSS. Report received from anesthesia. Patient assessed, see assessment. 1427: PACU labs and abdominal xray for NG placement cleared by Miguel Betancourt at this time. 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 JR drain placed in pelvis. SURGEON Surgeon(s) and Role: * Suman Baker MD, PhD - Primary ANESTHESIOLOGIST Anesthesiologist: Vinicius Gupta DO; Chayo Benson MD Mri Technician: VIJAYA Gamboa; VIJAYA Lopez Application Penetration Tester Assisting: Richard Bradshaw MD Trestle Builder: Wali Art SURGICAL STAFF Zoology Teacher: Piedad Maki RN; Rima Medel RN Relief Zoology Teacher: Suri Stockton RN Relief Scrub: Ghanshyam Pereselanmary Scrub Person: Heidy Skelton; Tammy Lopez Resident [...] May 22, 2022 1:06 PM Zainab Swift ([id number]) PRE OPERATIVE DIAGNOSIS Primary malignant neuroendocrine tumor [...] Anesthesiologist: Vinicius Gupta DO; Chayo Benson MD Mri Technician: VIJAYA Gamboa; VIJAYA Lopez Application Penetration Tester Assisting: Richard Bradshaw MD Trestle Builder: Wali Art SURGICAL STAFF Zoology Teacher: Piedad Maki RN; Rima Medel RN Relief Zoology Teacher: Suri Stockton RN Relief Scrub: Ghanshyam Townsend [...] 1:04 PM SURGEONS: Suman Baker MD, PhD WAITER/WAITRESS TOURIST CLASS SURGEON: Rodolfo Arnold MD PROCEDURE: - Exploratory [...] timeout per standard procedure at the [facility]. We made a midline [...] sarmiento stapler device. Next, we began the hdmtcf-mo-kdmifhh dissection to mobilize the colonic mesentery. We [...] filed. We then proceeded with creating a pakz-py-nnad functional end-to-end anastomosis between the distal ileum [...] puncture Incision WDL WDL Incision (Adult, Pediatric) 04/21/22 0749 lower;medial abdomen laparoscopic puncture Placement Date/Time: 04/21/22 0749 Present On Admission : no Orientation: lower;medial Location: abdomen Incision Type: laparoscopic puncture Incision WDL WDL Plan WOCT Visit Frequency Sat Last Date Seen 05/22/22 documented in this encounter [facility] 05-29-2022 Hospital course Narrative Discharge Summary [...] of Surgical Oncology Arrive at: Arrive to [facility] First Floor Registration [phone] documented in this encounter [facility] 05-28-2022 Note Formatting of this n [...] and HIPEC with Mitomycin C on 05/22/22. [facility] Inpatient PCRM Discharge Note Patient discussed in [...] and assistance is needed, please page the chef concierge PCRM at [phone]. [facility] 05-28-2022 History of Present illness Narrative [...] the care of Zainab Swift. Please page [phone] or call [phone] with any questions or concerns. Elroy Powell MD Acute Pain Service Senior Resident @ [phone] Subjective: Passing gas and having regular BMs. [...] Plan was discussed with Dr. Oanh Betancourt, SPENCER-SENIOR TALENT ACQUISITION SPECIALIST B surgery G3 service [phone] Anesthesia Acute Pain Progress Note Zainab Swift [...] acute pain service at [phone] or call [phone] with any questions or concerns. Yann Burr [...] with MAMTA Wisdom B surgery G3 service [id number] Psychosocial Assessment Per chart review, patient is [...] Information Source Number: see demographics Contact Information Stone Planer Name: Pinky Smith RN [facility] Stone Planer's Social Work Contact Name: Bailey WILLAMS [facility] Teacher Private's Living Environment Lives With: spouse Living Arrangements: house (one story house wiith 3 Steps to enter) Provides Primary Care For: no one Primary Care Provided By: spouse/significant other, self Support System: Immediate family Able to Return to Prior Arrangements: yes Employment/Financial Employed?: Yes 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 Health Insurance / Rx: [id number] [place] [address] - [address] [place] [address] AT [facility] Anticipated Discharge Plan: Pt report she plans to return home with care and transportation provided by her . Medical Team Considerations: None SW Interventions/Recommendations: Service SW name and contact information placed on white board in patient's room to contact as needed. SW will continue to remain available to provide assistance and support as needed during inpatient stay. IMER Christina, FIELD REIMBURSEMENT MANAGER SON and HPB Teacher Private Pager: [phone] For Evening (4:30pm-8am) and Weekend SW needs please call [phone] or page [phone] Anesthesia Acute Pain Progress Note Zainab Swift [...] acute pain service at [phone] or call [phone] with any questions or concerns. Yann Burr [...] with MAMTA Wisdom B surgery G3 service [phone] Anesthesia Acute Pain Progress Note Zainab Swift [...] regimen Please page acute pain service at [phone] or call [phone] with any questions or concerns. Yann Burr [...] portion of incision with griselda drain. JR wiwt serosanguinous output. NG with bilious output. : [...] interviewed and examined this patient with the BIOMETRICIAN/fellow/resident. I reviewed the history and exam detailed in the note and have edited it as necessary. I agree with the medical decision making unless otherwise noted below. The patient is doing well. Her pain is well controlled. She is mildly distended on exam. We will continue NPO with NGT until return of bowel function. Suman Baker MD/PhD vp security Division of Surgical Oncology Department of Surgery [...] Plan was discussed with Dr. Oanh Colón, MIDDLE SCHOOL SPANISH TEACHER-SENIOR TALENT ACQUISITION SPECIALIST HPB surgery G3 service [id number] HPB Surgery Note Subjective: Patient doing well [...] acute pain service at [phone] or call [phone] with any questions or concerns. Yann Burr [...] regimen Please page acute pain service at [phone] or call [phone] with any questions or concerns. Yann Burr MD PGY-1 Anesthesiology Acute Pain Service Attending Addendum I personally examined and evaluated the patient. I reviewed the case and medical record with the resident. Based on the ROS, History, and Exam, I agree with the medical decision making. Beck P Tyrese, M.D. Surgical Oncology Post-Op Check Note Zainab [...] acute pain service at [phone] or call [phone] with any questions or concerns. Richard Bradshaw MD plant operations vice president [facility] documented in this encounter [facility] 05-27-2022 Note Formatting of this n [...] with stand-by assistance from multiple times yesterday. [facility] 05-26-2022 Consult note Formatting of th [...] 1: Location: forearm, anterior, right Device/Lot Number: [id number] catheter system Gauge/Length: 1 3/4 in length;20 gauge Unsuccessful Insertion Attempts: 1 Unsuccessful Attempt Location/Site: Pain Prevention/Patient Tolerance: distraction;tolerated well;appears comfortable Removal: Additional Comments: placed by Carla Mccurdy RN Lumen 2: Lumen 3: Peripheral IV Present on Admission: (Retired/Read Only) Location: (Retired/Read Only) Device: (Retired/Read Only) Gauge/Length: Hog Killer/Lot Number: Unsuccessful Insertion Attempts: (Retired/Read Only) Unsuccessful [...] care of this patient. Vascular Access Team [id number] [facility] 05-26-2022 Consult note Formatting of th is note is different from the original. Vascular Access Procedure Note for Ultrasound Guided PIV Placement Assessment Zainab Carbajalkang seen and evaluated for peripheral IV insertion [...] 1: Location: forearm, anterior, right Device/Lot Number: [id number]-[id number] catheter system Gauge/Length: 1 3/4 in length;20 gauge Unsuccessful Insertion Attempts: 1 Unsuccessful Attempt Location/Site: Pain Prevention/Patient Tolerance: distraction;tolerated well;appears comfortable Removal: Additional Comments: placed by Carla Mccurdy RN Lumen 2: Lumen 3: Peripheral IV Present on Admission: (Retired/Read Only) Location: (Retired/Read Only) Device: (Retired/Read Only) Gauge/Length: Hog Killer/Lot Number: Unsuccessful Insertion Attempts: (Retired/Read Only) Unsuccessful [...] care of this patient. Vascular Access Team [id number] documented in this encounter [facility] 05-25-2022 Note Formatting of this n ote might be different from the original. 4: [facility] paged: Rm [phone], Jamison: FYI pt states that she can't tolerate taking the olanzapine disintegrating tablet because of the NG. Thanks [phone] [facility] 05-22-2022 Note Formatting of this n [...] outcomes by discharge/transition of care. Outcome: Ongoing [facility] 05-22-2022 Note Formatting of this n ote might be different from the original. I certify that this patient requires inpatient services at this time. I anticipate the expected length of stay will include at least two midnights. Inpatient services are due to the following medical concerns appendiceal NET. Plans for post hospitalization care will be discharge to home. [facility] 05-22-2022 Note Formatting of this n ote is different from the original. 05/22/22 1608 Referral Information Arrived From home or self-care;operating room Readmission Information Was patient readmitted within 30 Days? No Information Source Information Source patient Information Source Name Zainab Jamison-in person Information Source Number Demographics reviewed Outpatient Providers Outpatient Providers Updated In IHIS Yes Contact Information Stone Planer/SW Added to Care Team Yes This Sole Leather Cutting Machine Operator is Primary Stone Planer/SW Yes (Antonio Jiang RN [facility] [phone]) Stone Planer Name Pinky Barcenas RN [facility] Stone Planer's Social Work Contact Name Bailey WILLAMS, [facility] Teacher Private's Living Environment Lives With spouse Living Arrangements [...] Education And Care For Discharge? Phill Swift [phone] Can Support Person Meet The Care Needs Of The Patient? 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 Employment/Financial Concerns no Source Of Income salary/wages Financial Concerns none Insurance Medical Insurance Verified Yes Prescription Coverage Yes Pharmacy updated in [facility] Yes Initial Discharge Planning Home Care Services (PLUMBING TECHNICIAN) No Home Therapies (PLUMBING TECHNICIAN) None DME (PLUMBING TECHNICIAN) None Medical Supplies (PLUMBING TECHNICIAN) None Patient Goal for Discharge Return home with assistance from family and friends Anticipated discharge disposition Home Anticipated Services at Discharge Outpatient follow up Anticipated Changes Related to Illness none Current Discharge Risk high risk diagnoses (i.e., CHF, Stroke, DM, chronic pain, abdominal pain, nausea and vomiting) Transportation Available car Home Care Services (PLUMBING TECHNICIAN) Additional Home Care Services (PLUMBING TECHNICIAN) no Assessment/Concerns to be Addressed Concerns [...] and for discharge planning. Medical team updated. [facility] 05-22-2022 Note Formatting of this n ote might be different from the original. 1512: Report called to Jevon EMERY on [place]. All questions answered. 1514: Patient discharged from [facility] PACU per protocol. Patient transported via gurney with side rails up x2 with HOB>30 degrees to room 1204 [facility] by Natalia EMERY and Dang LISA. Family called to patient's bedside. [facility] 05-22-2022 Note Formatting of this n ote might be different from the original. 1310: Patient arrives in [place] PACU from OR via gurney with side rails up x2 with HOB >30 degrees, accompanied by Anesthesiologist: Vinicius Gupta DO; Chayo Benson MD Mri Technician: VIJAYA Gamboa; VIJAYA Lopez Application Penetration Tester Assisting: Richard Bradshaw MD Trestle Builder: Wali Art. Patient placed on monitors, VSS. Report received from anesthesia. Patient assessed, see assessment. 1427: PACU labs and abdominal xray for NG placement cleared by Miguel Betancourt at this time. [facility] 05-22-2022 Note Formatting of this n ote is different from the original. 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 JR drain placed in pelvis. SURGEON Surgeon(s) and Role: * Suman Baker MD, PhD - Primary ANESTHESIOLOGIST Anesthesiologist: Vinicius Gupta DO; Chayo Benson MD Mri Technician: VIJAYA Gamboa; VIJAYA Lopez Application Penetration Tester Assisting: Richard Bradshaw MD Trestle Builder: Wali Art SURGICAL STAFF Zoology Teacher: Piedad Maki RN; Rima Medel RN Relief Zoology Teacher: Suri Stockton RN Relief Scrub: Ghanshyam Townsend [...] Permanent SURG PATH SURG PATH REQUEST Suman aBker MD, PhD 05/22/2022 0936 7 : PERITONEAL IMPLANT #4 Permanent SURG PATH SURG PATH REQUEST Suman Baker MD, PhD 05/22/2022 0941 This procedure was not performed to treat colon cancer through resection Rodolfo Arnold MD May 22, 2022 1:06 PM Health Work Phone: 05-22-2022 Note Formatting of this n ote is different from the original. Zainab Swift ([id number]) PRE OPERATIVE DIAGNOSIS Primary malignant neuroendocrine tumor [...] Anesthesiologist: Vinicius Gupta DO; Chayo Benson MD Mri Technician: VIJAYA Gamboa; VIJAYA Lopez Application Penetration Tester Assisting: Richard Bardshaw MD Trestle Builder: Wali Art SURGICAL STAFF Zoology Teacher: Piedad Maki RN; Rima Medel RN Relief Zoology Teacher: Suri Stockton RN Relief Scrub: Ghanshyam Townsend [...] Hong MD May 22, 2022 1:04 PM Health Work Phone: 05-22-2022 Note Formatting of this n ote is different from the original. SURGEONS: Suman Baker MD, PhD WAITER/WAITRESS TOURIST CLASS SURGEON: Rodolfo Arnold MD PROCEDURE: - Exploratory [...] timeout per standard procedure at the [facility]. We made a midline [...] sarmiento stapler device. Next, we began the srzgaq-kn-nnjkzmz dissection to mobilize the colonic mesentery. We [...] filed. We then proceeded with creating a zzqj-yu-oivg functional end-to-end anastomosis between the distal ileum [...] participated for the entirety of the case. Health Work Phone: 05-22-2022 Nurse Surgical operation note 0815 Family notified of surgery start 102, 1211 Family updated 1228 Handoff report sent to PACU charge nurse 1255 PACU given notice of arrival 1309 Patient extubated and transported to PACU with anesthesia at bedside and on oxygen inhalation Rima Medel RN [facility] 05-22-2022 Nurse Note 0815 Family notified of surgery start 1021, 1211 Family updated 1228 Handoff report sent to PACU charge nurse 1255 PACU given notice of arrival 1309 Patient extubated and transported to PACU with anesthesia at bedside and on oxygen inhalation Rima Medel RN documented in this encounter [facility] 05-22-2022 Note Formatting of this n [...] Visit Frequency Sat Last Date [facility] History and physical note Surgical [...] Surgeon: Suman Baker MD, PhD; [facility] 04/08/2022 APPENDECTOMY LAPAROSCOPIC 02/03/2022 [place], [place] Family History Family History Problem Relation [...] day before surgery 05/21/2022 04/23/22 Elsie Mason APRN-SENIOR TALENT ACQUISITION SPECIALIST FLUoxetine 40 MG capsule 40 mg, Oral, [...] hours as instructed. 05/21/2022 04/23/22 Elsie Mason APRN-SENIOR TALENT ACQUISITION SPECIALIST Review of Systems Denies the following: Arrhythmias, [...] to the patient's satisfaction. Liza Cisneros PA-C [facility] 05-22-2022 History and physical note Surgical [...] Surgeon: Suman Baker MD, PhD; Location: [facility] MAIN OR COLONOSCOPY DIAGNOSTIC 04/08/2022 APPENDECTOMY LAPAROSCOPIC 02/03/2022 [place], [place] Family History Family History Problem Relation [...] hours as instructed. 05/21/2022 04/23/22 Elsie Mason APRN-SENIOR TALENT ACQUISITION SPECIALIST Review of Systems Denies the following: Arrhythmias, [...] Cisneros PA-C documented in this encounter [facility] 05-21-2022 Hospital Discharge instructions Pinky Be RN - 05/21/2022 10:38 AM EDT Contacts: Suman Baker MD Office Number: [phone] Option 1 During office hours, Wednesday through Wednesday, 8:00 AM to 4:30 PM, call the office if you have any questions or concerns. After hours, weekends and holidays call the office number and you will be transferred to the After Hours Nurse Line. Call 911 for Emergencies. Your corrections caseworker (PCRM) has arranged your appointments for follow [...] pharmacist before using any other medicine, including sepu-xex-wvdqazs medicines, vitamins, and herbal products. Avoid taking [...] and support, many resources are available. The Join The Wellness Team For MeterHero Information Call to request information or check hours. The [facility]: or , www.Envysion [place] Care Classes: Talyst for Life, Integrative Care Monthly Classes The Talyst for Life Program offers a series of [...] families and friends. For more information, contact [facility] at or visit our website at www.Envysion Resources in [facility] include the following: The [place] Cancer Society, [facility] . The Wellness Community [facility] The Cancer Support [facility]: http://cancersupportutio.org/prog rjbc-hgl-zpotftna/virtual-communi ty/ National Resources: [place] Cancer Society (ACS), www.cancer.org 5-870-ORN-2345, [place]: 7-125-AQD-[place]. National Comprehensive Cancer [facility] (NCCN) 6-963-940-NCCN, www.nccn.org National Cancer [place] (NCI) 5-136-6-CANCER, www.nci.gov The following attachments cannot be sent through Care Everywhere.Lovenox or Heparin: Subcutaneous Injections ([facility]) (Turkmen)documented in this encounter [facility] 04-29-2022 Note PROCEDURE: XR HIP RT [...] authenticated by: CAROLYN WALSH Date: 2022-04-29 16:59 [facility] 04-29-2022 Note PROCEDURE: XR HIP RT 2 3V WO PELVIS, XR TIB_FIB RT 2V, XR FEMUR RT HISTORY: Pain in right leg , chronic COMPARISON: None. FINDINGS: BONES:No fracture, acute abnormality, or significant arthropathy. SOFT TISSUES:No visible soft tissue swelling. EFFUSION:None visible. OTHER: Negative. IMPRESSION: 1. Normal appearance of the right hip, femur, and tibia-fibula. Electronically authenticated by: CAROLYN WALSH Date: 2022-04-29 16:59 [facility] 04-29-2022 Note PROCEDURE: XR HIP RT 2 [...] by: CAROLYN WALSH Date: 2022-04-29 16:59 [facility] 03-19-2022 History of Present illness [...] appendectomy on 02/03/22 for acute appendicitis at [facility]. 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 She presents to [facility] GI Surgical Oncology clinic for surgical [...] History: Procedure Laterality Date APPENDECTOMY LAPAROSCOPIC 02/03/2022 [facility], [place], [place] No Known Allergies Current Outpatient Medications [...] in our surgical oncology clinic at [facility], [facility]. As you know, Ms. Swift is [...] the future. Sincerely, Suman Baker MD, PhD vp security Department of Surgery Division of Surgical Oncology [place] [id number] Office [phone] Fax [email or web address] documented in this encounter [facility] 03-19-2022 Instructions Rhoda Lazo RN - 03/19/2022 3:00 PM EDT Pre-operative Information As a patient at the [facility], you may work with various departments and have help from many professionals. One of these is a surgical oncologist who works in the Division of Surgical Oncology. Surgical oncologists are surgeons who have completed advanced training to care for cancer patients. All of the surgical oncologists at the [facility] have completed specialized training and are board-certified. The surgeon who will be performing your surgery is Suman Baker M.D., vp security. [address] [place], [place] [address] Office phone: [phone] We are available to take calls Wednesday-Wednesday 8:00am-4:30pm. During non-business hours and holidays phone calls will be forwarded to a service covering our patients. Please communicate with our team through [facility] Cirro for non-urgent issues only. Office fax: [phone] Clinic Nurse Practitioner Carlos Gomes Tile Burner Sandra Brent Lion Hunter Iris Hoy OUR TEAM OF EXPERTS Raissa Otero is associated with The [facility] and is an academic medical center. Dr. Skip Le is an attending physician, the public relations account supervisor of your care. Listed below are the members of his team: Surgical Oncology Fellow: a physician who completed residency and is obtaining further education. Resident(s): a physician who has finished university internship and is receiving training in a specialized area (i.e. surgery) Bottle Dealer(s): a physician who has completed medical school and is in the 1st year of training Nurse Practitioner (BIOMETRICIAN): A registered nurse with a master's or doctoral degree who is licensed to practice; Clinic: Carlos Gomes, [facility]: [facility], Suman Jeffries, [facility], Kika Colón, [facility], Monica Jackson, [facility] Patient Care Cranberry Grower (PCRM): A registered nurse who coordinates care for patients returning home from the hospital and assists in coordinating home care; Clinic: Alissa Hunt, [facility], Hospital: Felicitas Campos, RN, Yoselyn Lange , RN, Antonio Jeffrey, [facility]. MEDICAL RECORDS The Release of Information (ROSALBA) area is staffed from 8:00 a.m. to 7:00 p.m. and is available for walk in requests from 8:00 a.m. to 4:30 p.m. [facility] is responsible for answering requests for copies of medical records from various requestors such as insurance companies, hospitals and patients. Please note it can take up to 2 weeks to complete your request. [phone] DISABILITY FORMS This category includes any form [...] private room? All rooms at the [facility] are private. Do you have a clinical social worker available? A clinical social worker is assigned to our team. How can I help my family plan for my discharge? From the moment a patient is admitted, the [facility] begin to plan for the patient s discharge. Plan to leave at 11am on the day of discharge. Discharge instructions will be given to the patient. The hospital nurse will discuss these with you. Does the [facility] precertify my surgery? Yes. The precertification department at [facility] will notify your insurance carrier. Who should I contact if I anticipate difficulty paying my bill? We want to make sure all patients have access to the quality healthcare services of [facility], and we are committed to working with you and your family to obtain appropriate financial assistance. You may contact the Office of Financial Counseling [phone] weekdays between 8am and 5pm to help determine whether you might qualify for an assistance program. Do I need to bring clothes from home to wear at the hospital? The [facility] will provide you with personal items. You may wish to bring a robe or slippers. Does the [facility] have a designated area for smoking? The [facility] does not permit smoking inside or outside the hospitals including parking areas and sidewalks. If you would like to quit, you can contact a tobacco medication specialist at [phone] or the [place] Tobacco QUIT LINE at [phone]. Where can I find information about visitation, [...] someone after business hours? The office number, [phone] or [phone], is connected to an answering service after 4:30pm each weekday and on weekends, available 08/02. What number should I call if I have billing questions? Please call [facility] s Central Business Office at [phone]. Please Note: In regards to equipment operator intermodal yard pain control. You may need narcotic pain [...] by 4 p.m., please call the [facility] Ambulatory Surgery Unit at [...] the hospital. Do not wear makeup, nail danish or hair pins to the hospital. Please [...] a living will or durable power of hourly team members, please bring a copy of the documents with you. IF YOU USE CPAP BRING YOUR MACHINE WITH YOU TO THE HOSPITAL ALONG WITH THE PRESCRIPTION FOR CPAP PRESSURE LEVELS If you develop any illness, such as a cold, sore throat, cough, or fever, before your surgery, call the [facility] Ambulatory Surgery Unit at [...] pulp Popsicles Ice Soft drinks Gatorade (Lemon Inaja preferred) Clear broth or bouillon Jello Coffee [...] not red, orange, or purple in color. Lemon-los coyotes is preferred. You may need to pour [...] program. You can also get help through: [facility] Tobacco Dependency Clinic, National Quit Line, Austrian Lung Association, Austrian Cancer Society, Smokefree.gov website Stop Alcohol Use [...] helpful:Alcoholics Anonymous (AA) http://www.aa.org/ Rethinking Drinking https://www.rethinkingdrinking.ni lifepoint health.nih.gov/ National [place] of Alcohol Abuse and Alcoholism https://niaaa.nih.gov/ Sasha Head 348-500-3217 -Inpatient, partial hospitalization and outpatient services for [...] Patient Controlled Analgesia (also known as a PATIENT CARE NURSING ASSISTANT) A PATIENT CARE NURSING ASSISTANT is a pain pump that could be [...] AM of surgery documented in this encounter [facility] 02-19-2022 Miscellaneous Notes Addended by: KARINE GALVAN on: 02/19/2022 04:15 PM Modules accepted: Orders INTESTINAL REFERRAL Let the person providing referral info know that you must speak directly to the patient. Our team cannot proceed with intake without communicating directly with the patient. 1) What is your (the patient's) direct phone contact number?- [phone] 2) What is your referring diagnosis? Appendix [...] resources available to cover travel expenses to [facility]? Yes We are currently flexible in offering initial virtual consultations for both surgery and transplant ONLY to patients living in [place], [place], and [place] through May 18, 2022. This may expand to other states depending on where the surgeon who conducts your initial visit is licensed (Dr. Wyatt is licensed in [place], [place], and [place]). If you are living in another state and desire an initial virtual consultation, you may choose to purchase a Narusult. (Surgical or transplant evaluations are highly individualized and may be conducted either through your local providers or at the [facility]. The plan for your evaluation will [...] for any pre-surgical testing done at the [facility], and for any post-surgical stay in [place] depending on your post-surgical course. 8) Would you be interested in participating in [facility] Online Virtual Visits for the psychosocial [...] have been over the past 1 year? [facility] (Submit ALL template in EPanève, AND for transplant patients submit MOST RECENT template) -Where else have you been for surgeries or testing and what years? Where/when was your very first abdominal surgery? Same as above 1st abdominal surgery- 01/2022 (Submit ALL template in EPanève) 10) How many drinks of alcohol do [...] On medication - Psychiatrist (Submit request in E-TouchFrame) 15) Do you have a Power of Managed Care Analyst (POA)? Do you have a Living Will?- No If so, please bring a copy of this to your appointment. 16) For females: When and where was your last mammogram (40 and up) and pap smear (16 and up)? - Needs to be within last year.- PAP- Never had & Mammo- No (Submit request in E-TouchFrame) 17) For all patients: When and where was your last dental visit? - Needs to be within last 6 months.- about 6 months ago (Submit request in E-health) 18) If transplant- Ask patient to obtain their immunization records and have them sent to us via mail/fax.- COVID- Yes The patient has been entered into Edit, chart is created, and request to MessageGate for medical records has been generated. Financial clearance has been submitted for rehab/transplant (if on TPN or has dysmotility, submit for both rehab & transplant). Chart will be given to customer support coordinator. Referral received from Dr. Rodney Olivas from [facility] ([phone]) to Dr. Davies. 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 Will call patient to start intake. documented in this encounter [facility] 12-22-2021 Evaluation note Encounter Date Diagnosis [...] Follow up with primary care provider or kettle girl if no improvement of symptoms. 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 [facility] Diagnosis Primary malignant neuroendocrine tumor of appendix Post-operative pain Other acute postoperative pain Primary malignant neuroendocrine tumor of appendix [facility] Diagnosis Primary malignant neuroendocrine tumor of appendix- Primary [facility] Diagnosis Primary malignant neuroendocrine tumor of appendix- Primary [facility] Diagnosis Primary malignant neuroendocrine tumor of appendix [facility] Diagnosis Primary malignant neuroendocrine tumor of appendix [facility]* Diagnosis Carcinoid syndrome- Primary SOB (shortness of breath) Shortness of breath Tachycardia Tachycardia, unspecified Antinuclear antibody (HUNTER) titer greater than 1:80 Primary malignant neuroendocrine tumor of appendix [facility]* Diagnosis Primary malignant neuroendocrine tumor of appendix [facility]* Diagnosis Carcinoid syndrome SOB (shortness of breath) Shortness of breath Tachycardia Tachycardia, unspecified Primary malignant neuroendocrine tumor of appendix [facility]* Diagnosis Fibromyalgia muscle pain- Primary Mylagia and myositis, unspecified documented [facility]* Diagnosis Primary malignant neuroendocrine tumor of appendix- Primary [facility] Diagnosis Primary malignant neuroendocrine tumor of appendix [facility]* Diagnosis 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 Neoplasm of unspecified nature of digestive system documented [facility]* Diagnosis Third trimester state, incidental documented [facility] - Reported* Type Description Date Medical History chronic depression Mobui Other Reason for referral (narrative)* (Routine) Specialty Diagnoses / Procedures Referred By Katharine morales Referred To [place] [address] Referral ID Status Reason Start Date Expiration Date Visits Re quested Visits Authorized * (Routine) - New Request Specialty Diagnoses / Procedures Referred By Contac t Referred To Contact Procedures PLATELET MONITORING PER PROTOCOL Suman Baker MD, PhD [address] [place] [address] Referral ID Status Reason Start Date Expiration Date V isits Requested Visits Authorized [id number] New Request 05/22/2022 06/16/2023 1 1 * (Routine) - New Request Specialty Diagnoses / Procedures Referred By Contac t Referred To Contact Procedures DVT/VTE RISK ASSESSMENT Suman Baker MD, PhD [address] [place] [address] Referral ID Status Reason Start Date Expiration Date V isits Requested Visits Authorized [id number] New Request 05/22/2022 06/16/2023 1 1 * (Routine) - New Request Specialty Diagnoses / Procedures Referred By Contac t Referred To Contact Procedures NO MECHANICAL DVT PROPHYLAXIS Liza Cisneros PA-C [address] [place] [address] Referral ID Status Reason Start Date Expiration Date V isits Requested Visits Authorized [id number] New Request 05/22/2022 06/16/2023 1 1 [facility] for referral (narrative)* Consultation (Routine) - New Request Specialty Diagnoses / Procedures Referred By Contac t Referred To Contact Oncology Diagnoses Primary malignant neuroendocrine tumor of appendix Carlos Gomes, MIDDLE SCHOOL SPANISH TEACHER-SENIOR TALENT ACQUISITION SPECIALIST [address] [facility] [address] [place] [address] Andreas Ortega MD, MPH [address] [address] Referral ID Status Reason Start Date Expiration Date V isits Requested Visits Authorized [id number] New Request 06/09/2022 07/04/2023 1 1 * MRI/CAT Scan (Routine) - New Request Specialty Diagnoses / Procedures Referred By Contac t Referred To Contact Diagnoses Primary malignant neuroendocrine tumor of appendix Procedures CT ABDOMEN/PELVIS WITH CONTRAST CHG CT SCAN,ABDOMENT AND PELVIS,W CONTRAST Carlos Gomes APRN-SENIOR TALENT ACQUISITION SPECIALIST [address] [place] [id number] Referral ID Status Reason Start Date Expiration Date V isits Requested Visits Authorized [id number] New Request 06/09/2022 07/04/2023 1 1 [facility] Consultation (Routine) - New Request Specialty Diagnoses / Procedures Referred By Contac t Referred To Contact Genetics Diagnoses Primary malignant neuroendocrine tumor of appendix Yudelka Moralez APRN-TASH [address] [place] [address] Erin Stoner, [facility] [address] [address] Referral ID Status Reason Start Date Expiration Date V isits Requested Visits Authorized [id number] New Request 07/08/2022 08/02/2023 1 1 * MRI/CAT Scan (Routine) - New Request Specialty Diagnoses / Procedures Referred By Contac t Referred To Contact Diagnoses Primary malignant neuroendocrine tumor of appendix Procedures CT ABDOMEN/PELVIS WITH AND WITHOUT CONTRAST CHG CT SCAN,ABDOMENT AND PELVIS,Andreas Ellis MD, MPH [address] [address] Referral ID Status Reason Start Date Expiration Date V isits Requested Visits Authorized [id number] New Request 07/08/2022 08/02/2023 1 1 * Radiology (Routine) - New Request Specialty Diagnoses / Procedures Referred By Katharine morales Referred To Contact Diagnoses Primary malignant neuroendocrine tumor of appendix Procedures NUC PET NEUROENDOCRINE CHG NUC THERAPY HYPERTHYROID SUBSEQUENT Yudelka Moralez APRN-SENIOR TALENT ACQUISITION SPECIALIST [address] [place] [address] Referral ID Status Reason Start Date Expiration Date V isits Requested Visits Authorized [id number] New Request 07/08/2022 08/02/2023 1 1 [facility] Auth/Cert Specialty Diagnoses / Procedures Referred By Katharine morales Referred To Contact Diagnoses 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] Procedures MA CHG HYPERTHERMIA RX INTRACAV PROBE MA PART REMOVAL COLON W ANASTOMOSIS MA RESECT RECURRENT CONTROLLER INSTRUCTOR MALIG 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) COLECTOMY PARTIAL OPEN DEBULKING INTRA-ABDOMINAL/PELVIC/RETROPE RITONEAL W/ OMENECTOMY & PELVIC PARA-AORTIC LYMPHADENECTOMY Suman Baker MD, PhD [address] [place] [address] [facility] [address] [place] [address] Referral ID Status Reason Start Date Expiration Date Visits Re quested Visits Authorized [id number] 1 1 [facility] Summary Purpose Family History No Family History Records FoundNo Family History Records FoundNo Family History Records FoundNo Family History Records FoundNo Family History Records Found Advance Directives No Advanced Directives Records FoundNo Advanced Directives Records FoundNo Advanced Directives Records FoundNo Advanced Directives Records FoundNo Advanced Directives Records Found Reason for Referral Specialty Diagnoses / Procedures Referred By Katharine morales Referred To Contact Echocardiography Diagnoses Carcinoid syndrome SOB (shortness of breath) Tachycardia Procedures ECHOCARDIOGRAM MA ECHO HEART XTHORACIC,COMPLETE W DOPPLER Yudelka Moralez APRN-SENIOR TALENT ACQUISITION SPECIALIST [address] [place] [facility] [place] [address] [place] [address] Referral ID Status Reason Start Date Expiration Date V isits Requested Visits Authorized [id number] Auth Not Needed 10/07/2022 11/01/2023 1 1 Specialty Diagnoses / Procedures Referred By Contac t Referred To Contact Diagnoses Primary malignant neuroendocrine tumor of appendix Procedures CT NECK WITH CONTRAST MA CT NECK TISSUE CONTRAST Yudelka Moralez APRN-SENIOR TALENT ACQUISITION SPECIALIST [address] [place], [place] Referral ID Status Reason Start Date Expiration Date V isits Requested Visits Authorized [id number] New Request 10/07/2022 11/01/2023 1 1 Specialty Diagnoses / Procedures Referred By Contac t Referred To Contact Diagnoses Carcinoid syndrome SOB (shortness of breath) Tachycardia Primary malignant neuroendocrine tumor of appendix Procedures CT CHEST WITH CONTRAST CHG DIAGNOSTIC COMPUTED TOMOGRAPHY THORAX W/CONTRAST Yudelka Moralez APRN-SENIOR TALENT ACQUISITION SPECIALIST [address] [place], [place] Referral ID Status Reason Start Date Expiration Date V isits Requested Visits Authorized [id number] New Request 10/07/2022 11/01/2023 1 1 Specialty Diagnoses / Procedures Referred By Contac t Referred To Contact Oncology Diagnoses Carcinoid syndrome SOB (shortness of breath) Tachycardia Yudelka Moralez APRN-SENIOR TALENT ACQUISITION SPECIALIST [address] [place], [place] Referral ID Status Reason Start Date Expiration Date V isits Requested Visits Authorized [id number] New Request 10/07/2022 11/01/2023 1 1 Specialty Diagnoses / Procedures Referred By Contac t Referred To Contact Rheumatology Diagnoses Antinuclear antibody (HUNTER) titer greater than 1:80 Yudelka Moralez APRN-SENIOR TALENT ACQUISITION SPECIALIST [address] [place] Referral ID Status Reason Start Date Expiration Date V isits Requested Visits Authorized [id number] New Request 10/07/2022 11/01/2023 1 1 Specialty Diagnoses / Procedures Referred By Katharine t Referred To Contact Diagnoses Primary malignant neuroendocrine tumor of appendix Procedures CT ABDOMEN/PELVIS WITH CONTRAST CHG CT SCAN,ABDOMENT AND PELVIS,W CONTRAST Carlos Gomes, [employer] SPANISH TEACHER-SENIOR TALENT ACQUISITION SPECIALIST [address] [place] [address] Referral ID Status Reason Start Date Expiration Date Visits Re quested Visits Authorized [id number] Closed 03/19/2022 04/13/2023 1 1 Specialty Diagnoses / Procedures Referred By Katharine morales Referred To Contact TRANSPLANT Diagnoses Cancer of appendix (HCC) Procedures CONSULT TO [facility] CENTER EXPLORATORY LAPAROTOMY CELIOTOMY W/WO BIOPSY SPX Vernon Davies MD [address] [place] [address] [facility] [address] [place] [address] Referral ID Status Reason Start Date Expiration Date Visits Requested Visits Authorized [id number] Pending Review Financial Clearance Required - [employer] Payor 02/19/2022 02/19/[phone] Additional Source Comments INFORMATION SOURCE (unrecogn ized section and content) DATE CREATED AUTHOR 02/19/2021 [facility] DATE CREATED AUTHOR AUTHOR'S ORGANIZ ATION 12/25/2022 [facility] DATE CREATED AUTHOR AUTHOR'S ORGANIZ ATION 09/30/2023 [facility] DATE CREATED AUTHOR AUTHOR'S ORGANIZ ATION 11/11/2023 [facility] DATE CREATED AUTHOR AUTHOR'S ORGANIZ ATION 11/13/2023 [facility] dical Specialists EPIC REASON FOR VISIT (unrecogniz ed section and content) Reason Comments Referral Request Specialty Diagnoses / Procedures Referred By Katharine morales Referred To Contact Diagnoses Primary malignant neuroendocrine tumor of appendix Procedures CT ABDOMEN/PELVIS WITH CONTRAST CHG CT SCAN,ABDOMENT AND PELVIS,W CONTRAST Carlos Gomes, [employer]CHOOL SPANISH TEACHER-SENIOR TALENT ACQUISITION SPECIALIST [address] [place] [address] Referral ID Status Reason Start Date Expiration Date Visits Re quested Visits Authorized [id number] Closed 03/19/2022 04/13/2023 1 1 Reason Comments New Patient Specialty Diagnoses / Procedures Referred By Contac t Referred To Contact Surgical Oncology Diagnoses New patient - Appendix NET - External: Dr. Timmy Hall - Preferred: Oanh Procedures NEW ISRRAEL SURGERY Self, Self Suman Baker MD, PhD [address] [place] [address] Referral ID Status Reason Start Date Expiration Date Visits Re quested Visits Authorized [id number] Closed 03/19/2022 04/13/2023 1 1 Reason Comments [...] malignant neuroendocrine tumor of appendix Carlos Gomes, [employer] SPANISH TEACHER-SENIOR TALENT ACQUISITION SPECIALIST [address] [facility] [address] [place] [address] Andreas Ortega MD, MPH [address] [facility] [address] [place] [phone] Referral ID Status Reason Start Date Expiration Date V isits Requested Visits Authorized [id number] New Request 06/09/2022 07/04/2023 1 1 Specialty Diagnoses / Procedures Referred By Contac t Referred To Contact Diagnoses Primary malignant neuroendocrine tumor of appendix Procedures NUC PET NEUROENDOCRINE CHG NUC THERAPY HYPERTHYROID SUBSEQUENT Yudelka Moralez, [employer] SPANISH TEACHER-SENIOR TALENT ACQUISITION SPECIALIST [address] [place] [address] Referral ID Status Reason Start Date Expiration Date Visits Re quested Visits Authorized [id number] Closed 07/08/2022 08/02/2023 1 1 Specialty Diagnoses / Procedures Referred By Contac t Referred To Contact Diagnoses Primary malignant neuroendocrine tumor of appendix Procedures CT ABDOMEN/PELVIS WITH AND WITHOUT CONTRAST CHG CT SCAN,ABDOMENT AND PELVIS,Andreas Ellis MD, MPH [address] [facility] [address] [place] [address] Referral ID Status Reason Start Date Expiration Date Visits Re quested Visits Authorized [id number] Closed 07/08/2022 08/02/2023 1 1 Reason Comments [...] of appendix Procedures CT NECK WITH CONTRAST MA CT NECK TISSUE CONTRAST Yudelka Moralez, [employer]CHO[employer] SPANISH TEACHER-SENIOR TALENT ACQUISITION SPECIALIST [address] [place] [address] Referral ID Status Reason Start Date Expiration Date Visits Re quested Visits Authorized [id number] Closed 10/07/2022 11/01/2023 1 1 Specialty Diagnoses / Procedures Referred By Katharine t Referred To Contact Echocardiography Diagnoses Carcinoid syndrome SOB (shortness of breath) Tachycardia Procedures ECHOCARDIOGRAM MA ECHO HEART XTHORACIC,COMPLETE W DOPPLER Yudelka Moralez, [employer] SPANISH TEACHER-SENIOR TALENT ACQUISITION SPECIALIST [address] [place] [address] Echocardiography [place] [address] [place] [address] Referral ID Status Reason Start Date Expiration Date Visits Re quested Visits Authorized [id number] Closed 10/07/2022 11/01/2023 1 1 Specialty Diagnoses / Procedures Referred By Katharine t Referred To Contact Diagnoses Carcinoid syndrome SOB (shortness of breath) Tachycardia Primary malignant neuroendocrine tumor of appendix Procedures CT CHEST WITH CONTRAST CHG DIAGNOSTIC COMPUTED TOMOGRAPHY THORAX W/CONTRAST Yudelka Moralez, [employer]CHOOL SPANISH TEACHER-SENIOR TALENT ACQUISITION SPECIALIST [address] [place] Referral ID Status Reason Start Date Expiration Date Visits Re quested Visits Authorized [id number] Closed 10/07/2022 11/01/2023 1 1 Reason Comments New Patient Referred by Dorothy Moralez NP for JR. 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 Joint achy/flu symptoms, tachcardia, + HUNTER. 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 Procedures MRI ABDOMEN/PELVIS WITHOUT CONTRAST MA MRI, ABDOMEN (MRI) MA MRI, PELVIS, W/O CONTRAST Yudelka Moralez, [employer]CHOOL SPANISH TEACHER-SENIOR TALENT ACQUISITION SPECIALIST [address] [place] [id number] Referral ID Status Reason Start Date Expiration Date Visits Re quested Visits Authorized [id number] Closed 03/09/2023 04/02/2024 1 1 Reason Comments Routine Visit Referral ID Status Reason Start Date Expiration Date Visits Re quested Visits Authorized [id number] Closed 04/06/2023 04/30/2024 1 1 Source Comments (unrecognize d section and content) In the event this informatio n is protected by the Federal Confidentiality of Alcohol and Drug Abuse Patient Records regulations: The Federal rules restrict any use of the information to criminally investigate or prosecute any alcohol or drug abuse patient.[facility] Care Teams (unrecognized sec tion and content) Baseball Club Manager Relationship Specialty Start Date End Date Erin Sams RN PCP - General 03/19/22 Rodney Olivas MD [address] [place] [phone] Hematology 03/19/22 Baseball Club Manager Relationship Specialty Start Date End Date Erin Sams RN PCP - General 03/19/22 Rodney Olivas MD [address] [place] [address] Hematology 03/19/22 Baseball Club Manager Relationship Specialty Start Date End Date Erin Sams RN PCP - General 03/19/22 Rodney Olivas MD [address] [place] [address] Hematology 03/19/22 Baseball Club Manager Relationship Specialty Start Date End Date Erin Sams RN PCP - General 03/19/22 Rodney Olivas MD [address] [place] [address] Hematology 03/19/22 Baseball Club Manager Relationship Specialty Start Date End Date Erin Sams RN PCP - General 03/19/22 Rodney Olivas MD [address] [place] [address] Hematology 03/19/22 Suman Baker MD, PhD [address] [place] [address] Surgeon Surgical Oncology 07/08/22 Baseball Club Manager Relationship Specialty Start Date End Date Erin Sams RN PCP - General 03/19/22 Rodney Olivas MD [facility] [place] [address] Hematology 03/19/22 Suman Baker MD, PhD [address] [place] [address] Surgeon Surgical Oncology 07/08/22 Baseball Club Manager Relationship Specialty Start Date End Date Erin Sams RN PCP - General 03/19/22 Rodney Olivas MD [address] [place] [address] Hematology 03/19/22 Suman Baker MD, PhD [address] [place] [address] Surgeon Surgical Oncology 07/08/22 Baseball Club Manager Relationship Specialty Start Date End Date Erin Sams RN PCP - General 03/19/22 Rodney Olivas MD [address] [place] [address] Hematology 03/19/22 Suman Baker MD, PhD [address] [place] [address] Surgeon Surgical Oncology 07/08/22 Cheikh Coelho MD [address] [place] [address] Party Bus Driver Cardiovascular Disease 10/07/22 Baseball Club Manager Relationship Specialty Start Date End Date Erin Sams RN PCP - General 03/19/22 Rodney Olivas MD [address] [place] [address] Hematology 03/19/22 Suman Baker MD, PhD [address] [place] [phone] Surgeon Surgical Oncology 07/08/22 Cheikh Coelho MD [address] [place] [address] Party Bus Driver Cardiovascular Disease 10/07/22 Baseball Club Manager Relationship Specialty Start Date End Date Erin Sams RN PCP - General 03/19/22 Rodney Olivas MD [address] [place] [address] Hematology 03/19/22 Suman Baker MD, PhD [address] [place] [address] Surgeon Surgical Oncology 07/08/22 Cheikh Coelho MD [address] [place] [address] Party Bus Driver Cardiovascular Disease 10/07/22 Baseball Club Manager Relationship Specialty Start Date End Date Erin Sams RN PCP - General 03/19/22 Rodney Olivas MD [address] [place] [address] Hematology 03/19/22 Suman Baker MD, PhD [address] [place] [address] Surgeon Surgical Oncology 07/08/22 Cheikh Coelho MD [address] [place] [address] Party Bus Driver Cardiovascular Disease 10/07/22 Baseball Club Manager Relationship Specialty Start Date End Date Erin Sams RN PCP - General 03/19/22 Rodney Olivas MD [address] [place] [address] Hematology 03/19/22 Suman Baker MD, PhD [address] [place] [address] Surgeon Surgical Oncology 07/08/22 Cheikh Coelho MD [address] [place] [address] Party Bus Driver Cardiovascular Disease 10/07/22 Baseball Club Manager Relationship Specialty Start Date End Date Erin Sams SENIOR TALENT ACQUISITION SPECIALIST [address] [place] [address] PCP - General 03/10/23 Rodney Olivas MD [address] [place] [address] [phone] Hematology 03/19/22 Suman Baker MD, PhD [address] [place] [address] Surgeon Surgical Oncology 07/08/22 Cheikh Coelho MD [address] [place] [address] Party Bus Driver Cardiovascular Disease 10/07/22 Baseball Club Manager Relationship Specialty Start Date End Date Erin Sams SENIOR TALENT ACQUISITION SPECIALIST [address] [place] [address] PCP - General 03/10/23 Rodney Olivas MD [address] [place], [place] [phone] Hematology 03/19/22 Suman Baker MD, PhD [address] [place] [address] Surgeon Surgical Oncology 07/08/22 Cheikh Coelho MD [address] [place] [address] Party Bus Driver Cardiovascular Disease 10/07/22 Baseball Club Manager Relationship Specialty Start Date End Date Latrell Erinnimo Persaud CNP [address] [facility] [place] [address] PCP - General 03/10/23 Rodney Olivas MD [address] [place] [address] Hematology 03/19/22 Suman Baker MD, PhD [address] [place] [address] Surgeon Surgical Oncology 07/08/22 Cheikh Coelho MD [address] [place] [address] Party Bus Driver Cardiovascular Disease 10/07/22 Andreas Ortega MD, MPH [address] [facility] [address] [place] [address] Oncologist Medical Oncology 03/31/23 Ron Ruano DO [address] [facility] [address] [place] [address] Obstetrics & Gynecology 04/06/23 Scheduled Active and Recently Administ ered Medications [...] Pagan, RN) 0613 (Given - Provider: Craig Pagan RN)1400 [...] 8.6 mg, Oral, DAILY, First dose on 05/27/22 at 0900, Until Discontinued 904 (Given - [...] Verify - Provider: Yadira Grier RN)0659 (Epidural Jefferson Volume/Shift Total - Provider: Yadira Grier RN - Comment: shift total: 175 ml remaining)1105 (Rate/Dose Verify - Provider: Alena Wade RN)1122 (Rate/Dose Verify - Provider: Alena Wade RN)1459 (Rate/Dose Verify - Provider: Alena Wade RN)1555 (Rate/Dose Verify - Provider: Alena Wade RN)1848 (Rate/Dose Verify - Provider: Alena Wade RN)1849 (Rate/Dose Verify - Provider: Alena Wade RN)1910 (Epidural Jefferson Volume/Shift Total - Provider: Alena Wade RN - Comment: 100mL left in cartridge) 0100 (Epidural Jefferson Volume/Shift Total - Provider: Craig Pagan RN - Comment: 69ml remain)0307 (Rate/Dose Verify - Provider: Craig Pagan RN)0709 (Rate/Dose Verify - Provider: Tania Louis, RN)1030 (Stopped - Provider: Tania Louis RN) [...] Chamberlain RN)1731 (See Alternative - Provider: Tania Louis, RUPERT)2134 (See Alternative - Provider: Craig Pagan, RUPERT) 0425 (See Alternative - Provider: Craig Pagan, RUPERT)0854 (See Alternative - Provider: Tania Louis RN) oxyCODONE HCl (ROXICODONE) tablet 10 mg(Linked Group 3) 10 mg, Oral, EVERY 4 HOURS NEEDED, Starting on Eliana 05/28/22 at 1239, Until Wed05/29/22 at 1402, Severe Pain 1302 (Given - Provider: Yvrose Chamberlain RN)1731 (Given - Provider: Tania Louis RN)2134 (Given - Provider: Craig Pagan, RUPERT) 0425 (Given - Provider: Craig Pagan, RUPERT)0854 (Given - Provider: Tania Louis, RUPERT) phenol (CHLORASEPTIC) 1.4 % oral spray 2 [...] Alena Wade, RN)1225 (Paused - Provider: Alena Wade RN)1239 (Restarted - Provider: Alena Wade RN)1312 (Paused - Provider: Alena Wade RN)1314 (Restarted - Provider: Alena Wade, RN)1459 (Rate/Dose Verify - Provider: Alena Wade RN)1555 (Rate/Dose Verify - Provider: Alena Wade RN)1726 (Paused - Provider: Alena Wade RN)1731 (Restarted - Provider: Alena Wade RN)1848 (Rate/Dose Verify - Provider: Alena Wade RN)184 (Rate/Dose Verify - Provider: Alena Wade RN)195 [...] BE BASED ON THE PRIMARY CLINICAL RECORDS. [employer] [facility]. provides no warranty or guarantee of the accuracy or completeness of information in this document.
[2023-11-18 14:26] LABS: C. Difficile PCR NEGATIVE (NEGATIVE)
== END 2023-11-17 16:55 | disposition home or self-care (01) ==
LOC: LAB 16:54
PROVIDERS: PCP Nurse Practitioner Family; Visit Provider Nurse Practitioner Family
DX: R19.7 Diarrhea, unspecified (principal)
CPT/HCPCS: 87045; 87046; 87427; 87493

== ENCOUNTER 2023-12-02 16:39 | Outpatient (OUT) | payer OTHER, SELFPAY ==
--- OUTSIDE RECORDS SUMMARY | 2023-12-02 16:47 | XMS_ITS | CCD ---
Author Organization [facility] Care Team Providers Care Board Turner Name Role Phone Ava Lundberg Unavailable Unavailable Primary Care Provider Unavailemanuel Sams RN, Erin Primary Care Provider Unavaildevon Olivas MD, Rodney Unavailable Latrell EMERY, Erin Primary Care Provider Unavaildevon Olivas MD, Rodney Unavailable Oanh DUPONT, PhD, Suman Naylor Unavailable [phone] Cheikh Coelho MD Unavailable ERIN SAMS Primary Care Unavailable ISABEL ., DR TIMMY Sibley Admitting Unavaila ble ISABEL ., DR TIMMY Sibley Consulting Unavaila ble ISABEL ., DR TIMMY Sibley Attending Unavaila ble LATRELL, ERIN Primary Care Unavailable ERIN SAMS Consulting Unavailable ERIN SAMS Attending Unavailable ERIN SAMS Admitting Unavailable ERIN SAMS Attending Unavailable JILLIAN, DR CAROLYN Quarles Consulting Unavailable LATRELL, ERIN Primary Care Unavailable LATRELL, ERIN Admitting Unavailable ERIN SAMS Consulting Unavailable LATRELL, ERIN Primary Care Unavailable IAN LOPEZ Admitting Unavailable IAN LOPEZ Attending Unavailable TIMMY SHAY Consulting Unavailable ELIAS ARMANDO Consulting Unavailable LATRELL, ERIN Primary Care Unavailable JILLIAN, DR CAROLYN Quarles Consulting Unavailable ERIN SAMS Attending Unavailable ERIN SAMS Admitting Unavailable ERIN SAMS Consulting Unavailable ALTRELL, ERIN Primary Care Unavailable SARAHI OLIVA Attending [...] ., DR TIMMY Sibley Attending Unavaila ble LTARELL, ERIN Primary Care Unavailable FROYLAN EVANGELISTA Consulting [...] Attending Unavailable LATRELL, ERIN Consulting Unavailable LATRELL, ERNI Attending Unavailable LATRELL, ERIN Primary Care Unavailable LATRELL, ERIN Admitting Unavailable Rodney Olivas MD Unavailable Oanh DUPONT, PhD, Suman C Unavailable [phone] Cheikh Coelho MD Unavailable [phone] Latrell BIANCHI, Erin S Primary Care Provider [phone] Unavailable Primary Care Provider UnavailRon Burciaga Attending Unavailable Ron Ruano Admitting Unavailable Oanh DUPONT, PhD, Suman C Unavailable Jordan DUPONT, MPH, Andreas Unavailable Ron Ruano DO Unavailable RON RUANO Attending Unavailable LIZBET CAST Attending Unavailable ALDEN, RON Attending Unavailable ALDEN, RON Attending Unavailable ALDEN, RON Attending Unavailable ALDEN, RON Attending Unavailable ALDEN, RON Attending Unavailable SERENE, LIZBET Attending Unavailable SERENE, LIZBET Attending Unavailable JORDAN, ANDREAS Referring Unavailable LATRELL, ERIN Primary Care Unavailable SUMAN BAKER Attending Unavailable SELF, SELF Referring Unavailable LATRELL, ERIN Primary Care Unavailable SUMAN BAKER Attending Unavailable JORDAN, ANDREAS Referring Unavailable LATRELL, ERIN Primary Care Unavailable JORDAN, ANDREAS Attending Unavailable JORDAN, ANDREAS Referring Unavailable LATRELL, ERIN S Primary Care Unavailable FARSHAD VIGIL Attending Unavailable LATRELL, ERIN S Primary Care Unavailable SUMAN BAKER Attending Unavailable SUMAN BAKER Referring Unavailable SELF, SELF Referring Unavailable LATRELL, ERIN S Primary Care Unavailable SUMAN BAKER Attending Unavailable JORDAN, ANDREAS Referring Unavailable JORDAN, ANDREAS Attending Unavailable LATRELL, ERIN S Primary Care Unavailable JORDAN, ANDREAS Referring Unavailable JORDAN, ANDREAS Attending Unavailable LATRELL, ERIN S Primary Care Unavailable JORDAN, ANDREAS Referring Unavailable JORDAN, ANDREAS Attending Unavailable LATRELL, ERIN S Primary Care Unavailable MORALEZ, YUDELKA Attending Unavailable SELF, SELF Referring Unavailable LATRELL, ERIN S Primary Care Unavailable SELF, SELF Referring Unavailable LATRELL, ERIN S Primary Care Unavailable MORALEZ, YE Referring Unavailable LATRELL, ERIN S Primary Care Unavailable LATRELL, ERIN Primary Care Unavailable MORALEZ, YE Referring Unavailable LATRELL, ERIN S Primary Care Unavailable LATRELL, ERIN Primary Care Unavailable CARLOS LYMAN Referring Unavailable SUMAN BAKER Attending Unavailable Allergies Allergy Classification Reported Allergen(s) Allergy Type Date of Onset Reaction(s) Facility (12 sources) gabapentin Drug Allergy 3 Nausea Only, Diarrhea [facility] (1 source) metroNIDAZOLE Drug Allergy 4 [facility] Medications Current Medications Medication Drug Class(es) Dates Sig (Normalized) Sig (Original) amylase 888869 unt / lipase 69910 unt / protease 079908 unt delayed release oral capsule (9 sources) Start: 11-22-2023 Pancrelipase, Zlv-Kndr-Yfzl, (Creon) 37334-202245 units Cap DR Particles Please take one cap with each meal, and one cap with each snack. 120 capsule 11/22/2023 Active Start: 09-10-2022 Pancrelipase, Mpl-Hwiv-Hbmm, (Creon) 57404-780838 units Cap DR Ana Maria Indications: Exocrine [...] 4 mg oral tablet (8 sources) Start: take 1 tablet by mouth four times [...] (16 sources) Low Molecular Weight Heparin Start: End: Enoxaparin Sodium 40 MG/0.4ML injection Indications: DVT/PE prophylaxis Inject one syringe (0.4 mL) under the skin every 24 hours. 10 mL 0 05/29/2022 Active Start: 05-22-2022 End: 05-29-2022 Enoxaparin Sodium (LOVENOX) injection 40 mg FLUoxetine 20 mg oral capsule (19 sources) Serotonin Reuptake Inhibitor Start: 08-17-2023 End: [...] capsule Take 2 capsules by mouth daily. Active PROzac Active lamoTRIgine 100 mg oral tablet (10 sources) Mood Stabilizer, Anti-epileptic Agent lamoTRIgine 100 MG tablet daily. Active take 2 tablets by mouth once kayden ly lamoTRIgine 25 MG tablet Take 2 tablets by mouth daily. 0 Active loperamide hydrochloride 2 mg oral capsule (1 source) Opioid Agonist Loperamide 2 MG capsule Take 1 capsule by mouth as needed for Diarrhea. 2 stat then 1 cap after each loose stool Active Magnesium Hydroxide (2 sources) Magnesium Hydrox anthony (MILK OF MAGNESIA PO) Take by mouth as needed. 0 Active metoclopramide 10 mg oral tablet (2 sources) Dopamine-2 Receptor Antagonist Start: 2022 metoclopramide (Reglan) 10 MG tablet Indications: Heartburn [...] oral capsule (1 source) Nitrofuran Antibacterial Start: 2021 take 1 capsule by mouth every twelve hours Macrobid 100 MG 1 capsule with food Orally every 12 hrs for 5 days Dec, Active 1 ml octreotide 0.1 mg/ml prefilled syringe (11 sources) Somatostatin Analog Start: 2023 inject 1 mL by subcutaneous injection three times daily as needed Octreotide Acetate 100 MCG/ML Solution Prefilled Syringe prefilled syringe Inject 1 mL under the skin 3 times daily as needed for Other (carcinoid syndrome). 90 mL 11/08/2023 Active Start: 10-18-2023 Octreotide chalo tierney (SandoSTATIN LAR [place]) 20 MG Kit injection [...] 1 PO) Vit-DSS-Fe Cbn-FA ( AD PO) (2 sources) Vit-DSS-Fe Cbn-FA ( AD PO) Take by [...] Mild Pain. Active 500 ml albumin human, chcf 50 mg/ml injection (1 source) Human Serum [...] sources) Anti-epileptic Agent Start: 09-11-19 End: 11-11-19 23 take 2 capsules by [...] pantoprazole 40 mg delayed release oral tablet (4 sources) Proton Pump Inhibitor Start: 05-28-2022 End: [...] oral spray 2 spray polyethylene glycol 3350 46133 mg powder for oral solution (2 sources) Osmotic Laxative Start: 04-23-2022 End: 06-09-2022 polyethylene glycol 17 GM/SCOOP Powder powder 11 AM: Take entire contents over 2 hours as instructed. 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] Onset: 12-01-2022 Chronic Other liver diseases (1 source) Elevated liver enzymes level; Translations: [Abnormal levels of other serum enzymes] 11-26-2023 Episodic Other liver diseases (2 sources) Abnormal levels of other serum enzymes; Translations: [Abnormal levels of other serum enzymes] Onset: 11-26-2023 Episodic Other lower respiratory disease (2 sources) Dyspnea; Translations: [Shortness of breath] Episodic Other nervous system disorders (1 source) Postoperative pain ; Translations: [Other acute postprocedural pain] Episodic Other nutritional; endocrine; and metabolic disorders (9 sources) Obese class I; Translations: [Obesity, unspecified] [...] and rectum] Onset: 03-11-2023 Episodic Mood disorders (14 sources) Mood disorders Onset: 06-09-2022 Resolved: 11-08-2023 06-09-2022 Nausea and vomiting (1 source) Nausea; Translations: [NAUSEA] Onset: 08-14-2022 Episodic Neoplasms of unspecified nature or uncertain behavior (4 sources) Neoplasm of uncertain behavior of appendix; 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 Alpha 1 Antitrypsin 125 mg/dL Normal 84-218 [facility] Comment on above: Performed By: #### Q IMM, A1AT, CERP #### [facility] (DEFAULT) [address] [address] HUNTER SCREEN IFAon 11-26-2023 Anti Nuclear Antibody Pattern Homogenous/Diffuse Normal [facility] Comment on above: Performed By: #### P SD, SIMFXB, PSE #### [facility] (DEFAULT) [address] [address] Antinuclear Antibody, IFA Positive Abnormal Negative [facility] Comment on above: Performed By: #### P SD, SIMFXB, PSE #### [facility] (DEFAULT) [address] [address] Quant Antinuclear Antibody 1:80 Abnormal (none) [facility] Comment on above: Performed By: #### P SD, SIMFXB, PSE #### [facility] (DEFAULT) [address] [address] ANTI MITOCHONDRIAL ANTIBODYo n 11-26-2023 Anti-Mitochondrial Antibody Negative Normal Negative [facility] Comment on above: Performed By: #### P SD, SIMFXB, PSE #### [facility] (DEFAULT) [address] [address] ANTI SMOOTH MUSCLE ANTIBODYo n 11-26-2023 Smooth Muscle Antibody Negative Normal Negative [facility] Comment on above: Performed By: #### P SD, SIMFXB, PSE #### [facility] (DEFAULT) [address] [place] [address] CBC AND ELECTRONIC DIFFon Basophils (Bld) [#/Vol] 0.05 10*3/uL Normal 0.00-0.15 [facility] Comment on above: Performed By: #### P SD, SIMFXB, PSE #### [facility] (DEFAULT) [address] [place] [address] Basophils/100 WBC (Bld) 0.6 % Normal [facility] Comment on above: Performed By: #### P SD, SIMFXB, PSE #### [facility] (DEFAULT) [address] [place] [address] DIFF STATUS Electronic Differential Normal [facility] Comment on above: Performed By: #### P SD, SIMFXB, PSE #### [facility] (DEFAULT) [address] [place] [address] Eosinophils (Bld) [#/Vol] 0.15 10*3/uL Normal 0.00-0.42 [facility] Comment on above: Performed By: #### P SD, SIMFXB, PSE #### [facility] (DEFAULT) [address] [address] Eosinophils/100 WBC (Bld) 1.9 % Normal [facility] Comment on above: Performed By: #### P SD, SIMFXB, PSE #### [facility] (DEFAULT) [address] [address] Hematocrit (Bld) [Volume fraction] 42.6 % Normal 34.9-44.3 [facility] Comment on above: Performed By: #### P SD, SIMFXB, PSE #### [facility] (DEFAULT) [address] [address] Hemoglobin (Bld) [Mass/Vol] 13.6 g/dL Normal 11.4-15.2 [facility] Comment on above: Performed By: #### P SD, SIMFXB, PSE #### [facility] (DEFAULT) [address] [address] Immature Grans % 0.5 % Normal [facility] Comment on above: Performed By: #### P SD, SIMFXB, PSE #### [facility] (DEFAULT) [address] [address] Immature Grans Absolute 0.04 K/uL Normal <=0.08 [facility] Comment on above: Performed By: #### P SD, SIMFXB, PSE #### [facility] (DEFAULT) [address] [address] Lymphocytes (Bld) [#/Vol] 2.06 10*3/uL Normal 1.16-3.51 [facility] Comment on above: Performed By: #### P SD, SIMFXB, PSE #### [facility] (DEFAULT) [address] [address] Lymphocytes/100 WBC (Bld) 25.8 % Normal [facility] Comment on above: Performed By: #### P SD, SIMFXB, PSE #### [facility] (DEFAULT) [address] [address] MCV (RBC) [Entitic vol] 88.9 fL Normal 79.6-97.7 [facility] Comment on above: Performed By: #### P SD, SIMFXB, PSE #### [facility] (DEFAULT) [address] [address] Mean Cell Hgb 28.4 pg Normal 25.9-33.9 [facility] Comment on above: Performed By: #### P SD, SIMFXB, PSE #### [facility] (DEFAULT) [address] [address] Mean Cell Hgb Conc 31.9 g/dL Normal 31.4-35.9 [facility] Comment on above: Performed By: #### P SD, SIMFXB, PSE #### [facility] (DEFAULT) [address] [place] [address] Monocytes (Bld) [#/Vol] 0.40 10*3/uL Normal 0.22-0.87 [facility] Comment on above: Performed By: #### P SD, SIMFXB, PSE #### [facility] (DEFAULT) [address] [place] [address] Monocytes/100 WBC (Bld) 5.0 % Normal [facility] Comment on above: Performed By: #### P SD, SIMFXB, PSE #### [facility] (DEFAULT) [address] [place] [address] Nucleated RBC 0.0 /100 WBC Normal <=0.2 [facility] Comment on above: Performed By: #### P SD, SIMFXB, PSE #### [facility] (DEFAULT) [address] [address] Platelet mean volume (Bld) [Entitic vol] 10.2 fL Normal 8.5-12.2 [facility] Comment on above: Performed By: #### P SD, SIMFXB, PSE #### [facility] (DEFAULT) [address] [address] Platelets (Bld) [#/Vol] 379 10*3/uL Normal 150-393 [facility] Comment on above: Performed By: #### P SD, SIMFXB, PSE #### [facility] (DEFAULT) [address] [address] RBC (Bld) [#/Vol] 4.79 10*6/uL Normal 3.91-5.04 [facility] Comment on above: Performed By: #### P SD, SIMFXB, PSE #### [facility] (DEFAULT) [address] [address] RBC Distribution 12.8 % Normal 10.8-14.9 [facility] Comment on above: Performed By: #### P SD, SIMFXB, PSE #### [facility] (DEFAULT) [address] [place] [address] Segs + Bands Auto 66.2 % Normal [facility] Comment on above: Performed By: #### P SD, SIMFXB, PSE #### [facility] (DEFAULT) [address] [place] [address] Segs + Bands,Absolute Auto 5.27 K/uL Normal 1.64-7.28 [facility] Comment on above: Performed By: #### P SD, SIMFXB, PSE #### [facility] (DEFAULT) [address] [place] [address] WBC (Bld) [#/Vol] 7.97 10*3/uL Normal 3.99-11.19 [facility] Comment on above: Performed By: #### P SD, SIMFXB, PSE #### [facility] (DEFAULT) [address] [place] [address] CERULOPLASMINon 11-26-2023 Ceruloplasmin [Mass/Vol] 31 mg/dL 20 - 60 mg/dL [facility] Ceruloplasmin 31 mg/dL Normal 20-60 [facility] Comment on above: Performed By: #### Q IMM, A1AT, CERP #### [facility] (DEFAULT) [address] [place] [address] CHEM 7 (LYTES,BUN,CREA,GLUC) on 11-26-2023 Anion gap [Moles/Vol] 17 mmol/L 7 - 17 mmol/L [facility] Chloride [Moles/Vol] 102 mmol/L 98 - 10 8 mmol/L [facility] CO2 [Moles/Vol] 26 mmol/L 21 - 31 mmol/L [facility] Creatinine [Mass/Vol] 0.55 mg/dL 0.50 - 1.20 mg/dL [facility] eGFR, CKD-EPI, Female - PINF [facility] Comment on above: Reported eGFR is bas ed on the CKD-EPI 2020 equation using creatinine, age, and sex. Glucose [Mass/Vol] 123 mg/dL High 70 - 99 mg/dL [facility] Osmolality Calc [Osmolality] [address] [facility] Potassium [Moles/Vol] 3.8 mmol/L 3.5 - 5.0 mmol/L [facility] Sodium [Moles/Vol] 141 mmol/L 135 - 145 mmol/L [facility] Urea nitrogen [Mass/Vol] 7 mg/dL 7 - 25 mg/dL [facility] Urea nitrogen/Creatinine [Mass ratio] 13 mg/mg [facility] Anion gap [Moles/Vol] 17 mmol/L Normal 7-17 [facility] Comment on above: Performed By: #### P SD, SIMFXB, PSE #### [facility] (DEFAULT) [address] [place] [address] Chloride [Moles/Vol] 102 mmol/L Normal 98-108 [facility] Comment on above: Performed By: #### P SD, SIMFXB, PSE #### [facility] (DEFAULT) [address] [place] [address] CO2 [Moles/Vol] 26 mmol/L Normal 21-31 [facility] Comment on above: Performed By: #### P SD, SIMFXB, PSE #### [facility] (DEFAULT) [address] [place] [address] Creatinine [Mass/Vol] 0.55 mg/dL Normal 0.50-1.20 [facility] Comment on above: Performed By: #### P SD, SIMFXB, PSE #### [facility] (DEFAULT) [address] [place] [address] eGFR, CKD-EPI, Female > Normal >=60 [facility] Comment on above: Result Comment: Repo rted eGFR is based on the CKD-EPI 2020 equation using creatinine, age, and sex. Performed By: #### P SD, SIMFXB, PSE #### [facility] (DEFAULT) [address] [place] [address] Glucose [Mass/Vol] 123 mg/dL High 70-99 [facility] Comment on above: Performed By: #### P SD, SIMFXB, PSE #### [facility] (DEFAULT) [address] [place] [address] Osmolality [Osmolality] 294 mosm/kg Normal 278-305 [facility] Comment on above: Performed By: #### P SD, SIMFXB, PSE #### [facility] (DEFAULT) [address] [place] [address] Potassium [Moles/Vol] 3.8 mmol/L Normal 3.5-5.0 [facility] Comment on above: Performed By: #### P SD, SIMFXB, PSE #### [facility] (DEFAULT) [address] [place] [address] Sodium [Moles/Vol] 141 mmol/L Normal 135-145 [facility] Comment on above: Performed By: #### P SD, SIMFXB, PSE #### [facility] (DEFAULT) [address] [place] [address] Urea nitrogen [Mass/Vol] 7 mg/dL Normal 7-25 [facility] Comment on above: Performed By: #### P SD, SIMFXB, PSE #### [facility] (DEFAULT) [address] [place] [address] Urea nitrogen/Creatinine [Mass ratio] 13 mg/mg Normal [facility] Comment on above: Performed By: #### P SD, SIMFXB, PSE #### [facility] (DEFAULT) [address] [place] [address] FERRITINon 11-26-2023 Ferritin [Mass/Vol] 26.5 ng/mL 7.3 - 27 0.7 ng/mL [facility] Interpretation and review of laboratory results Normal [facility] Ferritin [Mass/Vol] 26.5 ng/mL Normal 7.3-270.7 [facility] Comment on above: Performed By: #### P SD, SIMFXB, PSE #### [facility] (DEFAULT) [address] [place] [address] HEPATIC FUNCTION PANELon Albumin [Mass/Vol] 4.7 g/dL 3.5 - 5.0 g/dL [facility] ALP [Catalytic activity/Vol] 67 U/L 32 - 126 U/L [facility] ALT [Catalytic activity/Vol] 68 U/L High 9 - 48 U/L [facility] AST [Catalytic activity/Vol] 42 U/L High 10 - 39 U/L [facility] Bilirubin [Mass/Vol] 0.5 mg/dL NINF - 1.5 mg/dL [facility] Bilirubin.direct [Mass/Vol] 0.1 mg/dL NINF - 0.3 mg/dL [facility] Protein [Mass/Vol] 7.4 g/dL 6.4 - 8.3 g/dL [facility] Albumin [Mass/Vol] 4.7 g/dL Normal 3.5-5.0 [facility] Comment on above: Performed By: #### P SD, SIMFXB, PSE #### [facility] (DEFAULT) [address] [place] [address] ALP [Catalytic activity/Vol] 67 U/L Normal 32-126 [facility] Comment on above: Performed By: #### P SD, SIMFXB, PSE #### [facility] (DEFAULT) [address] [place] [address] ALT [Catalytic activity/Vol] 68 U/L High 9-48 [facility] Comment on above: Performed By: #### P SD, SIMFXB, PSE #### [facility] (DEFAULT) [address] [place] [address] AST [Catalytic activity/Vol] 42 U/L High 10-39 [facility] Comment on above: Performed By: #### P SD, SIMFXB, PSE #### [facility] (DEFAULT) [address] [place] [address] Bilirubin [Mass/Vol] 0.5 mg/dL Normal <1.5 [facility] Comment on above: Performed By: #### P SD, SIMFXB, PSE #### [facility] (DEFAULT) [address] [place] [address] Bilirubin.indirect [Mass/Vol] 0.1 mg/dL Normal <0.3 [facility] Comment on above: Performed By: #### P SD, SIMFXB, PSE #### [facility] (DEFAULT) [address] [place] [address] Protein [Mass/Vol] 7.4 g/dL Normal 6.4-8.3 [facility] Comment on above: Performed By: #### P SD, SIMFXB, PSE #### [facility] (DEFAULT) [address] [place] [address] IMMUNOFIXATION SERUMon 11-25 REVIEWED BY: Timmy Morel MD Normal [facility] Comment on above: Performed By: #### P SD, SIMFXB, PSE #### [facility] (DEFAULT) [address] [place] [address] Serum Immunofixation No definitive monoclonal protein is identified. Normal [facility] Comment on above: Performed By: #### P SD, SIMFXB, PSE #### [facility] (DEFAULT) [address] [place] [address] IMMUNOGLOBULINS IGG IGA IGMo n 11-26-2023 IgA [Mass/Vol] 179 mg/dL Normal 66-433 [facility] Comment on above: Performed By: #### Q IMM, A1AT, CERP #### [facility] (DEFAULT) [address] [place] [address] IgG [Mass/Vol] 847 mg/dL Normal 600-1714 [facility] Comment on above: Performed By: #### Q IMM, A1AT, CERP #### [facility] (DEFAULT) [address] [place] [address] IgM [Mass/Vol] 138 mg/dL Normal 45-281 [facility] Comment on above: Performed By: #### Q IMM, A1AT, CERP #### [facility] (DEFAULT) [address] [place] [address] IRON/IRON BINDING/TRANSFERRI Non 11-26-2023 Interpretation and review of laboratory results Normal [facility] Iron [Mass/Vol] 79 ug/dL [facility] Iron binding capacity [Mass/Vol] [address] [facility] Iron saturation [Mass fraction] 23 % 20 - 55 % [facility] Transferrin [Mass/Vol] 277 mg/dL 200 - 400 mg/dL [facility] Iron [Mass/Vol] 79 ug/dL Normal 40-174 [facility] Comment on above: Performed By: #### P SD, SIMFXB, PSE #### [facility] (DEFAULT) [address] [place] [address] Iron Saturation 23 % Normal 20-55 [facility] Comment on above: Performed By: #### P SD, SIMFXB, PSE #### [facility] (DEFAULT) [address] [place] [address] Total Iron Binding Capacity 346 mcg/dL Normal 250-425 [facility] Comment on above: Performed By: #### P SD, SIMFXB, PSE #### [facility] (DEFAULT) [address] [place] [address] Transferrin [Mass/Vol] 277 mg/dL Normal 200-400 [facility] Comment on above: Performed By: #### P SD, SIMFXB, PSE #### [facility] (DEFAULT) [address] [place] [address] No Panel Informationon 11-25 Interpretation and review of laboratory results Abnormal [facility] Interpretation and review of laboratory results Normal [facility] PROTEIN ELECTROPHORESISon Albumin [Mass/Vol] 4.6 g/dL Normal 3.5-5.0 [facility] Comment on above: Performed By: #### P SD, SIMFXB, PSE #### [facility] (DEFAULT) [address] [address] Alpha 1 0.3 g/dL Normal 0.2-0.4 [facility] Comment on above: Performed By: #### P SD, SIMFXB, PSE #### [facility] (DEFAULT) [address] [place] [address] Alpha 2 0.8 g/dL Normal 0.5-1.0 [facility] Comment on above: Performed By: #### P SD, SIMFXB, PSE #### [facility] (DEFAULT) [address] [address] Beta 0.9 g/dL Normal 0.5-1.1 [facility] Comment on above: Performed By: #### P SD, SIMFXB, PSE #### [facility] (DEFAULT) [address] [address] Gamma 0.8 g/dL Normal 0.6-1.5 [facility] Comment on above: Performed By: #### P SD, SIMFXB, PSE #### [facility] (DEFAULT) [address] [place] [address] Interpretation By: Timmy Morel MD Normal [facility] Comment on above: Performed By: #### P SD, SIMFXB, PSE #### [facility] (DEFAULT) [address] [place] [address] Spe Interpretation Normal serum protein electrophoresis pattern. Normal [facility] Comment on above: Performed By: #### P SD, SIMFXB, PSE #### [facility] (DEFAULT) [address] [address] PROTIME-INRon 11-26-2023 INR Coag (Bld) [Relative time] 1.0 {INR} 0.9 - 1.[address] [facility] Interpretation and review of laboratory results Normal [facility] PT Coag (PPP) [Time] 13.4 s [facility] INR Coag (PPP) [Relative time] 1.0 {INR} Normal 0.9-1.1 [facility] Comment on above: Performed By: #### P SD, SIMFXB, PSE #### [facility] (DEFAULT) [address] [place] [address] PT Coag (PPP) [Time] 13.4 s Normal 11.9-14.2 [facility] Comment on above: Performed By: #### P SD, SIMFXB, PSE #### [facility] (DEFAULT) [address] [place] [address] SPE SERUM TOTAL PROTEINon Protein [Mass/Vol] 7.3 g/dL Normal 6.4-8.3 [facility] Comment on above: Performed By: #### P SD, SIMFXB, PSE #### [facility] (DEFAULT) [address] [place] [address] T-TRANSGLUTAMINASE IGG/IGA, ABon 11-26-2023 T-TRANSGLUTAMINASE IGA AB <1.2 Normal <4.0 (Negative) [facility] Comment on above: Performed By: #### P SD, SIMFXB, PSE #### [facility] (DEFAULT) [address] [place] [address] Tissue Transglutaminase, IgG 2.4 U/mL Normal <6.0 (Negative) [facility] Comment on above: Result Comment: Test Performed by: [facility] [address] [place] [address] Equipment Engineering Technician: Ed Russo M.D. Ph.D.; CLIA# [id number] Performed By: #### P SD, SIMFXB, PSE #### [facility] (DEFAULT) [address] [place] [address] TSHon 11-26-2023 Interpretation and review of laboratory results Normal [facility] TSH Qn 1.315 m[IU]/L [facility] TSH 1.315 uIU/mL Normal 0.550-4.780 [facility] Comment on above: Performed By: #### P SD, SIMFXB, PSE #### [facility] (DEFAULT) [address] [place], [place] [address] CT ABDOMEN/PELVIS WITH AND W ITHOUT CONTRASTon [...] error, please notify the sender immediately at [phone] and permanently delete the original report and destroy any copies or printouts. Normal [facility] CBC AND ELECTRONIC DIFFon Basophils (Bld) [#/Vol] 0.05 10*3/uL Normal 0.00-0.15 [facility] Comment on above: Performed By: #### L [id number] #### [facility] (DEFAULT) [address] [address] Basophils/100 WBC (Bld) 0.6 % Normal [facility] Comment on above: Performed By: #### L AB980 #### [facility] (DEFAULT) [address] [place] [address] DIFF STATUS Electronic Differential Normal [facility] Comment on above: Performed By: #### L [id number] #### [facility] (DEFAULT) [address] [address] Eosinophils (Bld) [#/Vol] 0.19 10*3/uL Normal 0.00-0.42 [facility] Comment on above: Performed By: #### L [id number] #### [facility] (DEFAULT) [address] [place] [address] Eosinophils/100 WBC (Bld) 2.3 % Normal [facility] Comment on above: Performed By: #### L [id number] #### [facility] (DEFAULT) [address] [address] Hematocrit (Bld) [Volume fraction] 41.9 % Normal 34.9-44.3 [facility] Comment on above: Performed By: #### L AB980 #### [facility] (DEFAULT) [address] [address] Hemoglobin (Bld) [Mass/Vol] 13.5 g/dL Normal 11.4-15.2 [facility] Comment on above: Performed By: #### L AB980 #### [facility] (DEFAULT) [address] [address] Immature Grans % 0.2 % Normal [facility] Comment on above: Performed By: #### L AB980 #### [facility] (DEFAULT) [address] [address] Immature Grans Absolute < Normal <=0.08 [facility] Comment on above: Performed By: #### L [id number] #### [facility] (DEFAULT) [address] [address] Lymphocytes (Bld) [#/Vol] 2.07 10*3/uL Normal 1.16-3.51 [facility] Comment on above: Performed By: #### L [id number] #### [facility] (DEFAULT) [address] [address] Lymphocytes/100 WBC (Bld) 25.6 % Normal [facility] Comment on above: Performed By: #### L [id number] #### [facility] (DEFAULT) [address] [address] MCV (RBC) [Entitic vol] 86.9 fL Normal 79.6-97.7 [facility] Comment on above: Performed By: #### L [id number] #### [facility] (DEFAULT) [address] [address] Mean Cell Hgb 28.0 pg Normal 25.9-33.9 [facility] Comment on above: Performed By: #### L [id number] #### [facility] (DEFAULT) [address] [address] Mean Cell Hgb Conc 32.2 g/dL Normal 31.4-35.9 [facility] Comment on above: Performed By: #### L [id number] #### [facility] (DEFAULT) [address] [place] [address] Monocytes (Bld) [#/Vol] 0.66 10*3/uL Normal 0.22-0.87 [facility] Comment on above: Performed By: #### L AB980 #### [facility] (DEFAULT) [address] [address] Monocytes/100 WBC (Bld) 8.1 % Normal [facility] Comment on above: Performed By: #### L AB980 #### [facility] (DEFAULT) [address] [address] Nucleated RBC 0.0 /100 WBC Normal <=0.2 [facility] Comment on above: Performed By: #### L [id number] #### [facility] (DEFAULT) [address] [place] [address] Platelet mean volume (Bld) [Entitic vol] 9.7 fL Normal 8.5-12.2 [facility] Comment on above: Performed By: #### L [id number] #### [facility] (DEFAULT) [address] [address] Platelets (Bld) [#/Vol] 318 10*3/uL Normal 150-393 [facility] Comment on above: Performed By: #### L [id number] #### [facility] (DEFAULT) [address] [address] RBC (Bld) [#/Vol] 4.82 10*6/uL Normal 3.91-5.04 [facility] Comment on above: Performed By: #### L [id number] #### [facility] (DEFAULT) [address] [place] [address] RBC Distribution 14.2 % Normal 10.8-14.9 [facility] Comment on above: Performed By: #### L [id number] #### [facility] (DEFAULT) [address] [place] [address] Segs + Bands Auto 63.2 % Normal [facility] Comment on above: Performed By: #### L [id number] #### [facility] (DEFAULT) [address] [place] [address] Segs + Bands,Absolute Auto 5.11 K/uL Normal 1.64-7.28 [facility] Comment on above: Performed By: #### L [id number] #### [facility] (DEFAULT) [address] [place] [address] WBC (Bld) [#/Vol] 8.10 10*3/uL Normal 3.99-11.19 [facility] Comment on above: Performed By: #### L [id number] #### [facility] (DEFAULT) [address] [place] [address] CHROMOGRANIN Aon 11-06-2023 Chromogranin A 30 ng/mL Normal <93 [facility] Comment on above: Result Comment: ADDITIONAL INFORMATION The testing method is a homogeneous time-resolved immunofluorescent assay manufactured by [employer] and performed on the [employer] Kryptor Compact Plus. Values obtained with different [...] examination and other findings. Test Performed by: [facility] [address] [place] [address] Equipment Engineering Technician: Ed Russo M.D. Ph.D.; CLIA# [id number] Performed By: #### P SD, SIMFXB, PSE #### [facility] (DEFAULT) [address] [address] COMPREHENSIVE METABOLIC PANE Shamir 11-06-2023 Albumin [Mass/Vol] 4.6 g/dL Normal 3.5-5.0 [facility] Comment on above: Performed By: #### C MPN, LDO #### [facility] (DEFAULT) [address] [address] ALP [Catalytic activity/Vol] 75 U/L Normal 32-126 [facility] Comment on above: Performed By: #### C MPN, LDO #### [facility] (DEFAULT) [address] [address] ALT [Catalytic activity/Vol] 66 U/L High 9-48 [facility] Comment on above: Performed By: #### C MPN, LDO #### [facility] (DEFAULT) [address] [address] Anion gap [Moles/Vol] 13 mmol/L Normal 7-17 [facility] Comment on above: Performed By: #### C MPN, LDO #### [facility] (DEFAULT) [address] [address] AST [Catalytic activity/Vol] 40 U/L High 10-39 [facility] Comment on above: Performed By: #### C MPN, LDO #### [facility] (DEFAULT) [address] [address] Bilirubin [Mass/Vol] 0.3 mg/dL Normal <1.5 [facility] Comment on above: Performed By: #### C MPN, LDO #### [facility] (DEFAULT) [address] [place] [address] Calcium [Mass/Vol] 9.7 mg/dL Normal 8.6-10.5 [facility] Comment on above: Performed By: #### C MPN, LDO #### [facility] (DEFAULT) [address] [place] [address] Chloride [Moles/Vol] 104 mmol/L Normal 98-108 [facility] Comment on above: Performed By: #### C MPN, LDO #### [facility] (DEFAULT) [address] [place] [address] CO2 [Moles/Vol] 30 mmol/L Normal 21-31 [facility] Comment on above: Performed By: #### C MPN, LDO #### [facility] (DEFAULT) [address] [place] [address] Creatinine [Mass/Vol] 0.61 mg/dL Normal 0.50-1.20 [facility] Comment on above: Performed By: #### C MPN, LDO #### [facility] (DEFAULT) [address] [place] [address] eGFR, CKD-EPI, Female > Normal >=60 [facility] Comment on above: Result Comment: Repo rted eGFR is based on the CKD-EPI 2020 equation using creatinine, age, and sex. Performed By: #### C MPN, LDO #### [facility] (DEFAULT) [address] [place] [address] Glucose [Mass/Vol] 62 mg/dL Low 70-99 [facility] Comment on above: Performed By: #### C MPN, LDO #### [facility] (DEFAULT) [address] [place] [address] Osmolality [Osmolality] 293 mosm/kg Normal 278-305 [facility] Comment on above: Performed By: #### C MPN, LDO #### [facility] (DEFAULT) [address] [place] [address] Potassium [Moles/Vol] 3.9 mmol/L Normal 3.5-5.0 [facility] Comment on above: Performed By: #### C MPN, LDO #### [facility] (DEFAULT) [address] [place] [address] Protein [Mass/Vol] 7.3 g/dL Normal 6.4-8.3 [facility] Comment on above: Performed By: #### C MPN, LDO #### [facility] (DEFAULT) [address] [place] [address] Sodium [Moles/Vol] 143 mmol/L Normal 135-145 [facility] Comment on above: Performed By: #### C MPN, LDO #### [facility] (DEFAULT) [address] [place] [address] Urea nitrogen [Mass/Vol] 6 mg/dL Low 7-25 [facility] Comment on above: Performed By: #### C MPN, LDO #### [facility] (DEFAULT) [address] [place] [address] Urea nitrogen/Creatinine [Mass ratio] 10 mg/mg Normal [facility] Comment on above: Performed By: #### C MPN, LDO #### [facility] (DEFAULT) [address] [place] [address] LACTATE DEHYDROGENASEon 04-2 -2023 LD Total 161 U/L Normal 100-190 [facility] Comment on above: Performed By: #### C MPN, LDO #### [facility] (DEFAULT) [address] [place] [address] Shamir 09-25-2023 L Specimen: [id number] Received: 09/27/23 Status: MARIANNA Mosqueda Num: [id number] Spec Type: Surgical Subm Dr: Ron Ruano Tissues: A Placenta - 3rd Trimester (Greater than 28 weeks) (PLACENTA) Procedures: HE/3, Gross/Micro L5 Age/ Patient Sex Location Account Attending Physician Zainab Mcclure 28/F [facility] [id number] Ron Ruano SPEC NUM: [id number] RECD: 09/27/23 STATUS: MARIANNA MOSQUEDA NUM: [id number] AUSTEN: 09/25/23 [facility] DR: Ron Ruano ENTERED: 09/27/23 [facility] DR: [place],Lab SPEC TYPE: Surgical DEPT: CARL [...] Zainab Swift per requisition, [facility] Gross Description Received in formalin [...] of the cut surface of the placenta. [employer]oa [employer] Operator sections are submitted in 3 cassettes as follows: A1 - cord and central disc Specimen: [id number] Received: 09/27/23 Status: MARIANNA Mosqueda Num: [id number] Spec Type: Surgical Subm Dr: Ron Ruano Tissues: A Placenta - 3rd Trimester (Greater than 28 weeks) (PLACENTA) Procedures: ALMAPedro Georges/Zack L5 Patient: Zainab Mcclure Peggy [id number] (Continued) Specimen: [id number] Received: 09/27/23 (Continued) Gross Description (Continued) Signed (signature on file) Hawk Stevens MD 09/28/232017 Specimen: [id number] Received: 09/27/23 Status: MARIANNA Mosqueda Num: [id number] Spec Type: Surgical Subm Dr: Ron Ruano Tissues: A Placenta - 3rd Trimester (Greater than 28 weeks) (PLACENTA) Procedures: ALMAPedro Georges/Zack L5 Patient: Zainab Mcclure [id number] (Continued) Specimen: [id number] Received: 09/27/23 (Continued) Gross Description (Continued) A2 - membranes and marginal disc A3 - Superficial lesion CPT Codes 32925 Specimen: [id number] Received: 09/27/23 Status: MARIANNA Mosqueda Num: [id number] Spec Type: Surgical Subm Dr: Ron Ruano Tissues: A Placenta - 3rd Trimester (Greater than 28 weeks) (PLACENTA) Procedures: HE/3, Gross/Micro L5 Patient: Zainab Mcclure [id number] (Continued) Signed (signature on file) Hawk Stevens MD 09/28/232017 [facility] CHROMOGRANIN Aon 03-11-2023 Chromogranin A <20 Normal <93 [facility] Comment on above: Result Comment: ADDITIONAL INFORMATION This test was developed and its performance characteristics determined by [facility] in a manner consistent with CLIA requirements. [...] a homogeneous time-resolved immunofluorescent assay manufactured by [employer] and performed on the [employer] Kryptor Compact Plus. Values obtained with different assay methods or kits may be different and cannot be used interchangeably. Test results cannot be interpreted as absolute evidence for the presence or absence of malignant disease. Test Performed by: [facility] - [address] [address] Equipment Engineering Technician: Ed Russo M.D. Ph.D.; CLIA# [id number] Performed By: #### Y GRA #### [facility] ([facility]) [address] [place] [address] MRI ABDOMEN/PELVIS WITHOUT C [facility] 03-11-2023 MRI ABDOMEN/PELVIS WITHOUT CONTRAST EXAM: [...] not well visualized on this exam. Normal [facility] IMPRESSION: 1. Stable postoperative changes from [...] is not well visualized on this exam. [facility] Radiology Study observation (narrative) [facility] MRI ABDOMEN/PELVIS WITHOUT C ONTRASTOrdered By: Mandi Montiel on 03-11-[address] [facility] Work Phone: CT ABDOMEN/PELVIS WITH AND [...] nodes and have decreased in size. Normal [facility] CT Chest W contrast Jason IMPRESSION: [...] I have reviewed and approved this report. [facility] CT Chest W contrast IVOrdere d By: Benjamin Santos on 10-23-[address] [facility] CT Chest W contrast Jason Radiology Study observation (narrative) [facility] CT Neck W contrast Jason 04-0 [...] for mass or adenopathy in the neck. [facility] Radiology Study observation (narrative) [facility] CT Neck W contrast IVOrdered By: Miguel Espinal on 10-22-[address] [facility] Work Phone: Cardiac echo study Procedure Ordered By: Guerrero Carvalho on 10-22-2022 Ao peak raj 1.26 m/s [facility] Work Phone: Ao VTI 19.[address] [facility] Work Phone: Ascending [facility] 2.62 [facility]: AV LVOT peak gradient [address] [facility] Work Phone: AV mean gradient 3 mmHg [facility] Work Phone: AV peak gradient 6 mmHG [facility] Work Phone: AV valve area 2.[address] [facility] Work Phone: AV Velocity Ratio 0.70 [facility] Work Phone: FRANK (continuity Vmax) 1.[address] [facility] Work Phone: FRANK (continuity VTI) 2.[address] [facility] Work Phone: FRANK index (continuity Vmax) 1.06 m/s [facility] Work Phone: FRANK index (continuity VTI) 1.30 cm2/m2 [facility] Work Phone: Avg e' pk raj 0.15 m/s [facility] Work Phone: Avg E/e' ratio 4.[address] [facility] Work Phone: Body surface area Derived from formula 1.[address] [facility] Work Phone: BP EF 62 % [facility] Work Phone: DI (Vmax) 0.70 [facility] Work [facility]: DI (VTI) 0.86 m/2 [facility] Work Phone: E wave decelartion time 217.58 msec [facility] Work Phone: e' lateral pk raj 0.1597 m/s [facility]: e' lateral pk raj 0.16 m/s [facility] Work Phone: e' septal pk raj 0.1401 m/s [facility]: e' septal pk raj 0.14 m/s [facility] Work Phone: E/A ratio 0.74 [facility] Work Phone: E/e' lateral [facility] 4.57 [facility] Work [facility]: E/e' septal ratio 5.21 [facility] Work [facility]: EF SP 2CH 64 [facility] Work Phone: EF SP 4CH 59 [facility] Work Phone: FS 33 % 28 - 44 % [facility] Work Phone: IVC ostium 1.46 cm [facility] Work Phone: IVS 0.61 cm [facility] Work Phone: LA AREA 2CH 13.72 cm2 [facility] Work Phone: LA area 4CH 9.[address] [facility] Work Phone: LA ESV BP (MOD) 29 mL [facility] Work Phone: LA ESV BP (MOD) index 17 mL/m2 [facility] Work Phone: LA ESV SP 2CH (MOD) 37 mL [facility] Work Phone: LA ESV SP 4CH (MOD) 19 mL [facility] Work Phone: Long Strain -21.7 % [facility] Work Phone: LV EDV BP 71 mL [facility] Work Phone: LV EDV SP 2CH 76 mL [facility] Work Phone: LV EDV SP 4CH 61 mL [facility] Work Phone: LV ESV BP 27 mL [facility] Work Phone: LV ESV SP 2CH 27 mL [facility] Work Phone: LV ESV SP 4CH 25 mL [facility] Work Phone: LV mass 68.53 g [facility] Work Phone: LV Mass Index 39.8 g/m2 [facility] Work Phone: LV RWT 0.30 [facility] Work Phone: LV stroke volume BP (ml) 44 mL [facility] Work Phone: LV stroke volume index BP 25.58 mL/m2 [facility] Work Phone: LVIDD 4.10 cm [facility] Work Phone: LVIDS 2.73 cm [facility] Work Phone: LVOT area 2.60 cm2 [facility] Work Phone: LVOT diameter 1.82 cm [facility] Work Phone: LVOT peak raj 0.88 m/s [facility] Work Phone: LVOT peak VTI 17.[address] [facility] Work Phone: LVOT stroke volume 45 cm3 [facility] Work Phone: LVOT stroke volume index 25.99 ml/m2 [facility] Work Phone: MV pk A raj 0.98 m/s [facility] Work Phone: MV pk E raj 0.73 m/s [facility] Work Phone: MV stenosis pressure 1/2 time 63.10 ms [facility] Work Phone: MV valve area p 1/2 method 3.[address] [facility] Work Phone: OSU AV VTI RATIO PRE STRESS 0.[address] [facility] Work Phone: OSU ECHO LV BIPLANE SYSTOLIC VOLUME INDEX 15.70 mL/m2 [facility] Work Phone: [facility]SU ECHO LV BP DIASTOLIC VOLUME INDEX 41.28 mL/m2 [facility] Work Phone: PV peak gradient 4 mmHg [facility] Work Phone: PV PK RAJ 0.97 m/s [facility] Work Phone: PW 0.[address] [facility] Work Phone: RA vol index 4CH (MOD) 12.79 mL/m2 [facility] Work Phone: Right atrium volume 4 chamber method of disks [address] [facility] Work Phone: RV Area diastolic 21.85 cm2 [facility] Work Phone: RV Area systolic 11.51 cm2 [facility] Work Phone: RV basal diam 3.[address] [facility] Work Phone: RV Fractional area change 47.3 % [facility] Work Phone: RV long diam 7.[address] [facility] Work Phone: RV Long Strain -28.0 % [facility] Work Phone: RV mid diam 2.[address] [facility] Work Phone: RV S' 12.55 cm/s [facility] Work Phone: RVOT peak gradient 1 mmHg [facility] Work Phone: RVOT peak raj 0.59 m/s [facility] Work Phone: Sinus 2.[address] [facility] Work Phone: STJ 2.[address] [facility] Work Phone: Stroke Volume 45 cm/mL [facility] Work Phone: Stroke volume index 26 [facility] Work Phone: TAPSE 2.03 cm [facility] [facility] Work Phone: [facility] Work Phone: Cardiac echo study Procedure [...] ventricular strain) was performed. Imaging system used: Siemens. Indications Indications for study: chest pain, other, tachycardia and shortness of breath - Neuroendocrine tumor, LAMN. Wall Scoring Score Index: 1.00 The left ventricular wall motion is normal. [facility] Radiology Study observation (narrative) [facility] B-TYPE NATRIURETIC PEPTIDE ( BRAIN)on 10-07-2022 Interpretation and review of laboratory results Normal [facility] Natriuretic peptide B (Bld) [Mass/Vol] 4 pg/mL 0 - 100 pg/mL [facility] HIGH SENSITIVITY TROPONIN I - SINGLE ORDERon 10-07-2022 Interpretation and review of laboratory results Normal [facility] Troponin I.cardiac High sensitivity method [Mass/Vol] ng/L NINF - 34 ng/L [facility] MONOon 10-02-2022 Monocytes (Bld) [#/Vol] Negative Normal NEGATIVE [facility] Comment on above: Performed By: #### L IVER, LDH, BMP #### [facility] [address] [place] [address] Dr. Esthela Stevens CBC AUTO DIFFon 09-30-2022 BASO # 0.1 103/ul Normal 0.0-0.1 [facility] Comment on above: Performed By: #### L IVER, LDH, BMP #### [facility] [address] [place] [address] Dr. Esthela Stevens Basophils/100 WBC (Bld) 0.8 % Normal 0.2-2.0 [facility] Comment on above: Performed By: #### L IVER, LDH, BMP #### [facility] [address] [place] [address] Dr. Etshela Stevens EO # 0.1 103/ul Normal 0.0-0.7 [facility] Comment on above: Performed By: #### L IVER, LDH, BMP #### [facility] [address] [place] [address] Dr. Esthela Stevens Eosinophils/100 WBC (Bld) 1.7 % Normal 0.9-7.0 [facility] Comment on above: Performed By: #### L IVER, LDH, BMP #### [facility] [address] [place] [address] Dr. Esthela Stevens Erythrocyte distribution width (RBC) [Ratio] 13.1 % Normal 11.0-15.0 [facility] Comment on above: Performed By: #### L IVER, LDH, BMP #### [facility] [address] [place] [address] Dr. Esthela Stevens Hematocrit (Bld) [Volume fraction] 38.4 % Normal 36.0-48.0 [facility] Comment on above: Performed By: #### L IVER, LDH, BMP #### [facility] [address] [place] [address] Dr. Esthela Stevens Hemoglobin (Bld) [Mass/Vol] 12.4 g/dL Normal 12.0-16.0 [facility] Comment on above: Performed By: #### L IVER, LDH, BMP #### [facility] [address] [address] [address] Esthela Stevens IG # 0.02 10e3/ul Normal 0.00-0.03 [facility] Comment on above: Performed By: #### L IVER, LDH, BMP #### [facility] [address] [place] [address] Dr. Esthela Stevens IG % 0.3 % Normal 0.0-0.5 [facility] Comment on above: Performed By: #### L IVER, LDH, BMP #### [facility] [address] [place] [address] Dr. Esthela Stevens LYMPH # 2.2 103/ul Normal 1.2-3.8 [facility] Comment on above: Performed By: #### L IVER, LDH, BMP #### [facility] [address] [place] [address] Dr. Esthela Stevens Lymphocytes/100 WBC (Bld) 32.8 % Normal 20.5-60.0 [facility] Comment on above: Performed By: #### L IVER, LDH, BMP #### [facility] [address] [place] [address] Dr. Esthela Stevens MANUAL DIFF REQ NO Normal [facility] Comment on above: Performed By: #### L IVER, LDH, BMP #### [facility] [address] [place] [address] Dr. Esthela Stevens MCH (RBC) [Entitic mass] 27.1 pg Normal 26.7-34.0 [facility] Comment on above: Performed By: #### L IVER, LDH, BMP #### [facility] [address] [place] [address] Dr. Esthela Stevens MCHC (RBC) [Mass/Vol] 32.3 g/dL Normal 29.9-35.2 [facility] Comment on above: Performed By: #### L IVER, LDH, BMP #### [facility] [address] [place] [address] Dr. Esthela Stevens MCV (RBC) [Entitic vol] 83.8 fL Normal 81.0-99.0 [facility] Comment on above: Performed By: #### L IVER, LDH, BMP #### [facility] [address] [place] [address] Dr. Esthela Stevens MONO # 0.5 103/ul Normal 0.3-0.8 [facility] Comment on above: Performed By: #### L IVER, LDH, BMP #### [facility] [address] [place] [address] Dr. Esthela Stevens Monocytes/100 WBC (Bld) 8.0 % Normal 1.7-12.0 [facility] Comment on above: Performed By: #### L IVER, LDH, BMP #### [facility] [address] [place] [address] Dr. Esthela Stevens NEUT # 3.7 103/ul Normal 1.4-6.5 [facility] Comment on above: Performed By: #### L IVER, LDH, BMP #### [facility] [address] [place] [address] Dr. Esthela Stevens Neutrophils/100 WBC (Bld) 56.4 % Normal 43.0-75.0 [facility] Comment on above: Performed By: #### L IVER, LDH, BMP #### [facility] [address] [place] [address] Dr. Esthela Stevens Platelet mean volume (Bld) [Entitic vol] 9.3 fL Critically low 9.5-13.5 [facility] Comment on above: Performed By: #### L IVER, LDH, BMP #### [facility] [address] [place] [address] Dr. Esthela Stevens PLT 334 103/ul Normal 150-450 [facility] Comment on above: Performed By: #### L IVER, LDH, BMP #### [facility] [address] [place] [address] Dr. Esthela Stevens RBC 4.58 106/ul Normal 4.20-5.40 [facility] Comment on above: Performed By: #### L IVER, LDH, BMP #### [facility] [address] [address] [address] Esthela Stevens WBC 6.6 103/ul Normal 4.0-11.0 [facility] Comment on above: Performed By: #### L IVER, LDH, BMP #### [facility] [address] [address] [address] Esthela Stevens LDHon 09-30-2022 LDH 122 U/L Normal 81-234 [facility] Comment on above: Performed By: #### L IVER, LDH, BMP #### [facility] [address] [address] [address] Esthela Stevens LIVER PROFILEon 09-30-2022 Albumin [Mass/Vol] 4.1 g/dL Normal 3.4-5.0 [facility] Comment on above: Performed By: #### L IVER, LDH, BMP #### [facility] [address] [address] [address] Esthela Stevens Albumin/Globulin [Mass ratio] 1.2 {ratio} Normal [facility] Comment on above: Performed By: #### L IVER, LDH, BMP #### [facility] [address] [address] [address] Esthela Stevens ALP [Catalytic activity/Vol] 75 U/L Normal 46-116 [facility] Comment on above: Performed By: #### L IVER, LDH, BMP #### [facility] [address] [address] [address] Esthela Stevens ALT [Catalytic activity/Vol] 41 U/L Normal 14-59 [facility] Comment on above: Performed By: #### L IVER, LDH, BMP #### [facility] [address] [address] [address] Esthela Stevens AST [Catalytic activity/Vol] 30 U/L Normal 15-37 [facility] Comment on above: Performed By: #### L IVER, LDH, BMP #### [facility] [address] [address] [address] Esthela Stevens BILI, CONJUGATED 0.1 mg/dL Normal 0.0-0.2 [facility] Comment on above: Performed By: #### L IVER, LDH, BMP #### [facility] [address] [place] [address] Dr. Esthela Stevens Bilirubin [Mass/Vol] 0.5 mg/dL Normal 0.2-1.0 [facility] Comment on above: Performed By: #### L IVER, LDH, BMP #### [facility] [address] [place] [address] Dr. Esthela Stevens Globulin (S) [Mass/Vol] 3.3 g/dL Normal [facility] Comment on above: Performed By: #### L IVER, LDH, BMP #### [facility] [address] [place] [address] Dr. Esthela Stevens Protein [Mass/Vol] 7.4 g/dL Normal 6.4-8.2 [facility] Comment on above: Performed By: #### L IVER, LDH, BMP #### [facility] [address] [place] [address] Dr. Esthela Stevens PROF CHEM 8 (BAS METB)on Anion gap [Moles/Vol] 9.2 mmol/L Normal [facility] Comment on above: Performed By: #### L IVER, LDH, BMP #### [facility] [address] [place] [address] Dr. Esthela Stevens Calcium [Mass/Vol] 9.0 mg/dL Normal 8.5-10.1 [facility] Comment on above: Performed By: #### L IVER, LDH, BMP #### [facility] [address] [place] [address] Dr. Esthela Stevens Chloride [Moles/Vol] 102 mmol/L Normal 98-107 [facility] Comment on above: Performed By: #### L IVER, LDH, BMP #### [facility] [address] [place] [address] Dr. Esthela Stevens CO2 [Moles/Vol] 27.8 mmol/L Normal 21.0-32.0 [facility] Comment on above: Performed By: #### L IVER, LDH, BMP #### [facility] [address] [address] [address] Esthela Stevens Creatinine [Mass/Vol] 0.63 mg/dL Normal 0.55-1.02 [facility] Comment on above: Performed By: #### L IVER, LDH, BMP #### [facility] [address] [address] [address] Esthela Stevens EGFR-AF GUINEAN >60 Normal >=60 [facility] Comment on above: Performed By: #### L IVER, LDH, BMP #### [facility] [address] [address] [address] Esthela Stevens EGFR-NON AF GUINEAN >60 Normal >=60 [facility] Comment on above: Performed By: #### L IVER, LDH, BMP #### [facility] [address] [address] [address] Esthela Stevens Glucose [Mass/Vol] 106 mg/dL Normal 74-106 [facility] Comment on above: Performed By: #### L IVER, LDH, BMP #### [facility] [address] [address] [address] Esthela Stevens Potassium [Moles/Vol] 4.0 mmol/L Normal 3.5-5.1 [facility] Comment on above: Performed By: #### L IVER, LDH, BMP #### [facility] [address] [address] [address] Esthela Stevens Sodium [Moles/Vol] 135 mmol/L Critically low 136-145 [facility] Comment on above: Performed By: #### L IVER, LDH, BMP #### [facility] [address] [address] [address] Esthela Stevens Urea nitrogen [Mass/Vol] 9.0 mg/dL Normal 7.0-18.0 [facility] Comment on above: Performed By: #### L IVER, LDH, BMP #### [facility] [address] [address] [address] Esthela Stevens Urea nitrogen/Creatinine [Mass ratio] 14.3 mg/mg Normal [facility] Comment on above: Performed By: #### L IVER, LDH, BMP #### [facility] [address] [address] [address] Esthela Stevens MG MAMM DIAGNOSTIC 3D EFREN CA Don 09-23-2022 MG MAMM DIAGNOSTIC 3D EFREN CAD Patient: ZAINAB SWIFT Exam Date: 09/23/2022 : 1995 Gender:F Ordering : ERIN [facility]AMS [facility] Admission #: [id number] Family : Order #: [id number] CLICK HERE TO VIEW EXAM RADIOLOGY REPORT [...] cervical cancer at age 42. LOCATION: [facility] BREAST COMPOSITION: Extremely dense, which [...] M.D. on 09/23/2022 at 11:31 Normal [facility] US BREAST EFREN LIMITEDon 03-0 US BREAST EFREN LIMITED Patient: ZAINAB SWIFT Exam Date: 09/23/2022 : 1995 Gender:F Ordering : ERIN HermanYifan SAMS [facility] Admission #: [id number] Family : Order #: [id number] CLICK HERE TO VIEW EXAM RADIOLOGY REPORT [...] cervical cancer at age 42. LOCATION: [facility] BREAST COMPOSITION: Extremely dense, which [...] M.D. on 09/23/2022 at 11:31 Normal [facility] Covid-19 PCR (CVDTBH)on 08-20 SARS-CoV-2 (COVID-19) RNA JORGE LUIS+probe Ql (Unsp spec) Not detected Normal NOT DETECTED [facility] Comment on above: Result Comment: [...] for this test is supported by the Lithographing Machine Operator of Health and Human Service's declaration that [...] used). Performed By: #### P REG #### [facility] [address] [place] [address] Dr. Esthela Stevens INFLUENZA A AND B AGon 09-15 [facility] SEE BELOW Normal [facility] Comment on above: Result Comment: Nega tive for Flu A protein angiten. Infection due to Flu A cannot be ruled out. Flu A angiten in the sample may be below the detection limit of the test. Performed By: #### L IVER, LDH, BMP #### [facility] [address] [place] [address] Dr. Esthela Stevens INFLUBNEGH SEE BELOW Normal [facility] Comment on above: Result Comment: Nega tive for Flu B protein antigen. Infection due to Flu B cannot be ruled out. Flu B antigen in the sample may be below the detection limit of the test. Performed By: #### L IVER, LDH, BMP #### [facility] [address] [place] [address] Dr. Esthela Stevens INFLUENZA A AG Negative Normal NEGATIVE SEE COMMENT [facility] Comment on above: Performed By: #### L IVER, LDH, BMP #### [facility] [address] [place] [address] Dr. Esthela Stevens INFLUENZA B AG Negative Normal NEGATIVE SEE COMMENT [facility] Comment on above: Performed By: #### L IVER, LDH, BMP #### [facility] [address] [place] [address] Dr. Esthela Stevens HUNTER by IFAon 09-04-2022 Antinuclear Antibodies, IFA Positive Abnormal [facility] Comment on above: Result Comment: Nega tive <1:80 Borderline 1:80 Positive >1:80 Performed By: #### P REG #### [facility] [address] [address] [address] Esthela Stevens Centriole Pattern Normal [facility] Comment on above: Performed By: #### P REG #### [facility] [address] [address] [address] Esthela Stevens Centromere Pattern Normal [facility] Comment on above: Performed By: #### P REG #### [facility] [address] [address] [address] Esthela Stevens Homogeneous Pattern 1:160 Critically high [facility] Comment on above: Result Comment: ICAP nomenclature: AC-1 Performed By: #### P REG #### [facility] [address] [address] [address] Esthela Stevens Midbody Pattern Normal [facility] Comment on above: Performed By: #### P REG #### [facility] [address] [address] [address] Esthela Stevens Note: Comment Normal [facility] Comment on above: Result Comment: [...] titers Nucleosomes, Histones Drug-induced SLE Speckled Sm, RECREATION ADVISER, SCL-70, SLE,MCTD,PSS (diffuse form), SS-A/SS-B Sjogrens Nucleolar SCL-70, PM-1/SCL High titers Scleroderma, PM/DM Centromere Centromere PSS (limited form) w/Crest syndrome variable Nuclear Dot [id number] Primary Biliary Cirrhosis Nuclear GP210, Primary Biliary Cirrhosis Membrane italia A,B,C Performed By: #### P REG #### [facility] [address] [address] [address] Esthela Stevens Nuclear Dot Pattern Normal [facility] Comment on above: Performed By: #### P REG #### [facility] [address] [address] [address] Esthela Stevens Nuclear Membrane Pattern Normal [facility] Comment on above: Performed By: #### P REG #### [facility] [address] [address] [address] Esthela Stevens Nucleolar Pattern Normal [facility] Comment on above: Performed By: #### P REG #### [facility] [address] [address] [address] Esthela Stevens PCNA Pattern Normal [facility] Comment on above: Performed By: #### P REG #### [facility] [address] [address] [address] Esthela Stevens Speckled Pattern Normal [facility] Comment on above: Performed By: #### P REG #### [facility] [address] [place] [address] Dr. Esthela Stevens Spindle Apparatus Pattern Normal [facility] Comment on above: Performed By: #### P REG #### [facility] [address] [place] [address] Dr. Esthela Stevens ANTISTREPTOLYSIN O AB (ASO)o n 09-01-2022 Antistreptolysin O Ab 58.8 IU/mL Normal 0.0-200.0 [facility] Comment on above: Performed By: #### L IVER, LDH, BMP #### [facility] [address] [place] [address] Dr. Esthela Stevens INSULINon 09-01-2022 Insulin 12.2 uIU/mL Normal 2.6-24.9 [facility] Comment on above: Performed By: #### I NSULIN #### [facility] [address] [place] [address] Dr. Esthela Stevens RHEUMATOID FACTORon 09-01-19 RA Latex Turbid. <10.0 Normal <14.0 [facility] Comment on above: Performed By: #### L IVER, LDH, BMP #### [facility] [address] [place] [address] Dr. Esthela Stevens CBC AUTO DIFFon 08-31-2022 BASO # 0.0 103/ul Normal 0.0-0.1 [facility] Comment on above: Performed By: #### P REG #### [facility] [address] [place] [address] Dr. Esthela Stevens Basophils/100 WBC (Bld) 0.6 % Normal 0.2-2.0 [facility] Comment on above: Performed By: #### P REG #### [facility] [address] [place] [address] Dr. Esthela Stevens EO # 0.1 103/ul Normal 0.0-0.7 [facility] Comment on above: Performed By: #### P REG #### [facility] [address] [place] [address] Dr. Esthela Stevens Eosinophils/100 WBC (Bld) 1.5 % Normal 0.9-7.0 [facility] Comment on above: Performed By: #### P REG #### [facility] [address] [place] [address] Dr. Esthela Stevens Erythrocyte distribution width (RBC) [Ratio] 12.7 % Normal 11.0-15.0 [facility] Comment on above: Performed By: #### P REG #### [facility] [address] [place] [address] Dr. Esthela Stevens Hematocrit (Bld) [Volume fraction] 38.4 % Normal 36.0-48.0 [facility] Comment on above: Performed By: #### P REG #### [facility] [address] [place] [address] Dr. Esthela Stevens Hemoglobin (Bld) [Mass/Vol] 12.7 g/dL Normal 12.0-16.0 [facility] Comment on above: Performed By: #### P REG #### [facility] [address] [place] [address] Dr. Esthela Stevens IG # 0.02 10e3/ul Normal 0.00-0.03 [facility] Comment on above: Performed By: #### P REG #### [facility] [address] [place] [address] Dr. Esthela Stevens IG % 0.3 % Normal 0.0-0.5 [facility] Comment on above: Performed By: #### P REG #### [facility] [address] [place] [address] Dr. Esthela Stevens LYMPH # 2.0 103/ul Normal 1.2-3.8 [facility] Comment on above: Performed By: #### P REG #### [facility] [address] [place] [address] Dr. Esthela Stevens Lymphocytes/100 WBC (Bld) 31.2 % Normal 20.5-60.0 [facility] Comment on above: Performed By: #### P REG #### [facility] [address] [place] [address] Dr. Esthela Stevens MANUAL DIFF REQ NO Normal [facility] Comment on above: Performed By: #### P REG #### [facility] [address] [place] [address] Dr. Esthela Stevens MCH (RBC) [Entitic mass] 27.1 pg Normal 26.7-34.0 [facility] Comment on above: Performed By: #### P REG #### [facility] [address] [place] [address] Dr. Esthela Stevens MCHC (RBC) [Mass/Vol] 33.1 g/dL Normal 29.9-35.2 [facility] Comment on above: Performed By: #### P REG #### [facility] [address] [place] [address] Dr. Esthela Stevens MCV (RBC) [Entitic vol] 82.1 fL Normal 81.0-99.0 [facility] Comment on above: Performed By: #### P REG #### [facility] [address] [place] [address] Dr. Esthela Stevens MONO # 0.4 103/ul Normal 0.3-0.8 [facility] Comment on above: Performed By: #### P REG #### [facility] [address] [place] [address] Dr. Esthela Stevens Monocytes/100 WBC (Bld) 6.4 % Normal 1.7-12.0 [facility] Comment on above: Performed By: #### P REG #### [facility] [address] [place] [address] Dr. Esthela Stevens NEUT # 3.9 103/ul Normal 1.4-6.5 [facility] Comment on above: Performed By: #### P REG #### [facility] [address] [address] [address] Esthela Stevens Neutrophils/100 WBC (Bld) 60.0 % Normal 43.0-75.0 [facility] Comment on above: Performed By: #### P REG #### [facility] [address] [address] [address] Esthela Stevens Platelet mean volume (Bld) [Entitic vol] 9.2 fL Critically low 9.5-13.5 [facility] Comment on above: Performed By: #### P REG #### [facility] [address] [address] [address] Esthela Stevens PLT 390 103/ul Normal 150-450 [facility] Comment on above: Performed By: #### P REG #### [facility] [address] [place] [address] Dr. Esthela Stevens RBC 4.68 106/ul Normal 4.20-5.40 [facility] Comment on above: Performed By: #### P REG #### [facility] [address] [address] [address] Esthela Stevens WBC 6.5 103/ul Normal 4.0-11.0 [facility] Comment on above: Performed By: #### P REG #### [facility] [address] [address] [address] Esthela Stevens CRPon 08-31-2022 CRP [Mass/Vol] mg/L Normal <=1.[address] [facility] Comment on above: Performed By: #### L IVER, LDH, BMP #### [facility] [address] [address] [address] Esthela Stevens FREE THYROXINE INDEX T7on FTI 2.94 Normal 1.30-4.50 [facility] Comment on above: Performed By: #### L IVER, LDH, BMP #### [facility] [address] [address] [address] Esthela Stevens T3U 33.0 % Normal 30.0-39.0 [facility] Comment on above: Performed By: #### L IVER, LDH, BMP #### [facility] [address] [address] [address] Esthela Stevens T4 [Mass/Vol] 8.90 ug/dL Normal 4.80-13.90 [facility] Comment on above: Performed By: #### L IVER, LDH, BMP #### [facility] [address] [address] [address] Esthela Stevens GLYCOHEMOGLOBIN A1Con 2022 ADA RECOMMENDATION SEE BELOW Normal [facility] Comment on above: Result Comment: ADA RECOMMENDED LIMIT 4.0 - 6.0 ADA THERAPEUTIC TARGET < 7.0 ACTION SUGGESTED > 7.0 Performed By: #### L IVER, LDH, BMP #### [facility] [address] [address] [address] Esthela Stevens Glucose [Mass/Vol] 111 mg/dL Normal [facility] Comment on above: Performed By: #### L IVER, LDH, BMP #### [facility] [address] [address] [address] Esthela Stevens HbA1c (Bld) [Mass fraction] 5.5 % Normal 4.5-6.2 [facility] Comment on above: Performed By: #### L IVER, LDH, BMP #### [facility] [address] [place] [address] Dr. Esthela Stevens IRONon 08-31-2022 Iron [Mass/Vol] 34.0 ug/dL Critically low 50.0-170.0 [facility] Comment on above: Performed By: #### L IVER, LDH, BMP #### [facility] [address] [place] [address] Dr. Esthela Stevens LIPID PROFILEon 08-31-2022 CHOL-HDL RATIO NORM SEE BELOW Normal [facility] Comment on above: Result Comment: 3.3 - 4.4 LOW RISK 4.4 - 7.1 AVERAGE RISK 7.1 - 11.0 MODERATE RISK >11.0 HIGH RISK Performed By: #### L IVER, LDH, BMP #### [facility] [address] [address] [address] Esthela Stevens Cholesterol [Mass/Vol] 168 mg/dL Normal <=200 [facility] Comment on above: Performed By: #### L IVER, LDH, BMP #### [facility] [address] [place] [address] Dr. Esthela Stevens Cholesterol in HDL [Mass/Vol] 51 mg/dL Normal 40-60 [facility] Comment on above: Performed By: #### L IVER, LDH, BMP #### [facility] [address] [place] [address] Dr. Esthela Stevens Cholesterol in LDL [Mass/Vol] 91.8 mg/dL Normal [facility] Comment on above: Performed By: #### L IVTOREY, LDH, BMP #### [facility] [address] [place] [address] Dr. Esthela Stevens Cholesterol.total/Ch olesterol in HDL [Mass ratio] 3.3 {ratio} Normal [facility] Comment on above: Performed By: #### L IVER, LDH, BMP #### [facility] [address] [place] [address] Dr. Esthela Stevens HDL NORMAL > or = 60 mg/dl - LOW CARDIOVASCULAR RISK <40 mg/dl - HIGH CARDIOVASCULAR RISK Normal [facility] Comment on above: Performed By: #### L IVER, LDH, BMP #### [facility] [address] [place] [address] Dr. Esthela Stevens LDL CALC NORMAL SEE BELOW Normal [facility] Comment on above: Result Comment: <100 mg/dl OPTIMAL 100 - 129 mg/dl NEAR OR ABOVE OPTIMAL 130 - 159 mg/dl BORDERLINE HIGH 160 - 189 mg/dl HIGH >190 mg/dl VERY HIGH Performed By: #### L IVER, LDH, BMP #### [facility] [address] [place] [address] Dr. Esthela Stevens Triglyceride [Mass/Vol] 126 mg/dL Normal <=150 [facility] Comment on above: Performed By: #### L IVER, LDH, BMP #### [facility] [address] [place] [address] Dr. Esthela Stevens VLDL CALC 25.2 mg/dL Normal [facility] Comment on above: Performed By: #### L IVER, LDH, BMP #### [facility] [address] [place] [address] Dr. Esthela Stevens PROF 14(COMP METB)on 023 Albumin [Mass/Vol] 4.2 g/dL Normal 3.4-5.0 [facility] Comment on above: Performed By: #### L IVER, LDH, BMP #### [facility] [address] [place] [address] Dr. Esthela Stevens Albumin/Globulin [Mass ratio] 1.1 {ratio} Normal [facility] Comment on above: Performed By: #### L IVER, LDH, BMP #### [facility] [address] [place] [address] Dr. Esthela Stevens ALP [Catalytic activity/Vol] 74 U/L Normal 46-116 [facility] Comment on above: Performed By: #### L IVER, LDH, BMP #### [facility] [address] [place] [address] Dr. Esthela Stevens ALT [Catalytic activity/Vol] 57 U/L Normal 14-59 [facility] Comment on above: Performed By: #### L IVER, LDH, BMP #### [facility] [address] [place] [address] Dr. Esthela Stevens Anion gap [Moles/Vol] 15.0 mmol/L Normal [facility] Comment on above: Performed By: #### L IVER, LDH, BMP #### [facility] [address] [place] [address] Dr. Esthela Stevens AST [Catalytic activity/Vol] 25 U/L Normal 15-37 [facility] Comment on above: Performed By: #### L IVER, LDH, BMP #### [facility] [address] [place] [address] Dr. Esthela Stevens Bilirubin [Mass/Vol] 0.4 mg/dL Normal 0.2-1.0 [facility] Comment on above: Performed By: #### L IVER, LDH, BMP #### [facility] [address] [address] [address] Esthela Stevens Calcium [Mass/Vol] 9.4 mg/dL Normal 8.5-10.1 [facility] Comment on above: Performed By: #### L IVER, LDH, BMP #### [facility] [address] [address] [address] Esthela Stevens Chloride [Moles/Vol] 102 mmol/L Normal 98-107 [facility] Comment on above: Performed By: #### L IVER, LDH, BMP #### [facility] [address] [address] [address] Esthela Stevens CO2 [Moles/Vol] 27.0 mmol/L Normal 21.0-32.0 [facility] Comment on above: Performed By: #### L IVER, LDH, BMP #### [facility] [address] [place] [address] Dr. Esthela Stevens Creatinine [Mass/Vol] 0.61 mg/dL Normal 0.55-1.02 [facility] Comment on above: Performed By: #### L IVER, LDH, BMP #### [facility] [address] [place] [address] Dr. Esthela Stevens EGFR-AF GUINEAN >60 Normal >=60 [facility] Comment on above: Performed By: #### L IVER, LDH, BMP #### [facility] [address] [place] [address] Dr. Esthela Stevens EGFR-NON AF GUINEAN >60 Normal >=60 [facility] Comment on above: Performed By: #### L IVER, LDH, BMP #### [facility] [address] [place] [address] Dr. Esthela Stevens Globulin (S) [Mass/Vol] 3.7 g/dL Normal [facility] Comment on above: Performed By: #### L IVER, LDH, BMP #### [facility] [address] [place] [address] Dr. Esthela Stevens Glucose [Mass/Vol] 88 mg/dL Normal 74-106 [facility] Comment on above: Performed By: #### L IVER, LDH, BMP #### [facility] [address] [place] [address] Dr. Esthela Stevens Potassium [Moles/Vol] 4.0 mmol/L Normal 3.5-5.1 [facility] Comment on above: Performed By: #### L IVER, LDH, BMP #### [facility] [address] [place] [address] Dr. Esthela Stevens Protein [Mass/Vol] 7.9 g/dL Normal 6.4-8.2 [facility] Comment on above: Performed By: #### L IVER, LDH, BMP #### [facility] [address] [place] [address] Dr. Esthela Stevens Sodium [Moles/Vol] 140 mmol/L Normal 136-145 [facility] Comment on above: Performed By: #### L IVER, LDH, BMP #### [facility] [address] [place] [address] Dr. Esthela Stevens Urea nitrogen [Mass/Vol] 4.0 mg/dL Critically low 7.0-18.0 [facility] Comment on above: Performed By: #### L IVER, LDH, BMP #### [facility] [address] [place] [address] Dr. Esthela Stevens Urea nitrogen/Creatinine [Mass ratio] 6.6 mg/mg Normal [facility] Comment on above: Performed By: #### L IVER, LDH, BMP #### [facility] [address] [place] [address] Dr. Esthela Stevens TSHon 08-31-2022 TSH 1.348 uIU/mL Normal 0.358-3.740 [facility] Comment on above: Performed By: #### L IVER, LDH, BMP #### [facility] [address] [place] [address] Dr. Esthela Stevens URIC ACID SERUMon 08-31-2022 Urate [Mass/Vol] 4.4 mg/dL Normal 2.6-6.0 [facility] Comment on above: Performed By: #### L IVER, LDH, BMP #### [facility] [address] [place] [address] Dr. Esthela Stevens VITAMIN D 25 OHon 08-31-2022 VIT D 25-OH 18.0 ng/mL Normal [facility] Comment on above: Performed By: #### L IVER, LDH, BMP #### [facility] [address] [place] [address] Dr. Esthela Stevens VIT D RANGES SEE BELOW Normal [facility] Comment on above: Result Comment: <20 ng/mL Vit D deficient 20 - <30 ng/mL Vit D insufficient 30 - 100 ng/mL Vit D sufficient >100 ng/mL Potential Toxicity Performed By: #### L IVER, LDH, BMP #### [facility] [address] [place] [address] Dr. Esthela Stevens LIVER PROFILEon 08-24-2022 Albumin [Mass/Vol] 3.9 g/dL Normal 3.4-5.0 [facility] Comment on above: Performed By: #### L IVER, LDH, BMP #### [facility] [address] [place] [address] Dr. Esthela Stevens Albumin/Globulin [Mass ratio] 1.0 {ratio} Normal [facility] Comment on above: Performed By: #### L IVER, LDH, BMP #### [facility] [address] [place] [address] Dr. Esthela Stevens ALP [Catalytic activity/Vol] 70 U/L Normal 46-116 [facility] Comment on above: Performed By: #### L IVER, LDH, BMP #### [facility] [address] [place] [address] Dr. Esthela Stevens ALT [Catalytic activity/Vol] 44 U/L Normal 14-59 [facility] Comment on above: Performed By: #### L IVER, LDH, BMP #### [facility] [address] [place] [address] Dr. Esthela Stevens AST [Catalytic activity/Vol] 22 U/L Normal 15-37 [facility] Comment on above: Performed By: #### L IVER, LDH, BMP #### [facility] [address] [address] [address] Esthela Stevens BILI, CONJUGATED 0.1 mg/dL Normal 0.0-0.2 [facility] Comment on above: Performed By: #### L IVER, LDH, BMP #### [facility] [address] [place] [address] Dr. Esthela Stevens Bilirubin [Mass/Vol] 0.3 mg/dL Normal 0.2-1.0 [facility] Comment on above: Performed By: #### L IVER, LDH, BMP #### [facility] [address] [address] [address] Esthela Stevens Globulin (S) [Mass/Vol] 3.9 g/dL Normal [facility] Comment on above: Performed By: #### L IVER, LDH, BMP #### [facility] [address] [place] [address] Dr. Eshtela Stevens Protein [Mass/Vol] 7.8 g/dL Normal 6.4-8.2 [facility] Comment on above: Performed By: #### L IVER, LDH, BMP #### [facility] [address] [place] [address] Dr. Esthela Stevens CREAT/GFRon 08-19-2022 Creatinine [Mass/Vol] 0.85 mg/dL 0.50 - 1.20 mg/dL [facility] GFR/1.73 sq M.predicted CKD-EPI (S/P/Bld) [Vol rate/Area] - PINF [facility] Comment on above: Reported eGFR is bas ed on the CKD-EPI 2020 equation using creatinine, age, and sex. Interpretation and review of laboratory results Normal [facility] Test performed at address of the patient encounter. 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 [facility] Radiology Study observation (narrative) [facility] PT Skull base to mid-thighOr dered By: Hawa Pichardo on 08-19-[address] [facility] Work Phone: CBC AUTO DIFFon 08-12-2022 BASO # 0.1 103/ul Normal 0.0-0.1 [facility] Comment on above: Performed By: #### L IVER, LDH, BMP #### [facility] [address] [place] [address] Dr. Esthela Stevens Basophils/100 WBC (Bld) 1.0 % Normal 0.2-2.0 [facility] Comment on above: Performed By: #### L IVER, LDH, BMP #### [facility] [address] [place] [address] Dr. Esthela Stevens EO # 0.1 103/ul Normal 0.0-0.7 [facility] Comment on above: Performed By: #### L IVER, LDH, BMP #### [facility] [address] [place] [address] Dr. Esthela Stevens Eosinophils/100 WBC (Bld) 1.6 % Normal 0.9-7.0 [facility] Comment on above: Performed By: #### L IVER, LDH, BMP #### [facility] [address] [place] [address] Dr. Esthela Stevens Erythrocyte distribution width (RBC) [Ratio] 12.5 % Normal 11.0-15.0 [facility] Comment on above: Performed By: #### L IVER, LDH, BMP #### [facility] [address] [place] [address] Dr. Esthela Stevens Hematocrit (Bld) [Volume fraction] 40.1 % Normal 36.0-48.0 [facility] Comment on above: Performed By: #### L IVER, LDH, BMP #### [facility] [address] [place] [address] Dr. Esthela Stevens Hemoglobin (Bld) [Mass/Vol] 12.3 g/dL Normal 12.0-16.0 [facility] Comment on above: Performed By: #### L IVER, LDH, BMP #### [facility] [address] [place] [address] Dr. Esthela Stevens IG # 0.01 10e3/ul Normal 0.00-0.03 [facility] Comment on above: Performed By: #### L IVER, LDH, BMP #### [facility] [address] [place] [address] Dr. Esthela Stevens IG % 0.2 % Normal 0.0-0.5 [facility] Comment on above: Performed By: #### L IVER, LDH, BMP #### [facility] [address] [place] [address] Dr. Esthela Stevens LYMPH # 1.8 103/ul Normal 1.2-3.8 [facility] Comment on above: Performed By: #### L IVER, LDH, BMP #### [facility] [address] [place] [address] Dr. Esthela Stevens Lymphocytes/100 WBC (Bld) 28.0 % Normal 20.5-60.0 [facility] Comment on above: Performed By: #### L IVER, LDH, BMP #### [facility] [address] [place] [address] Dr. Esthela Stevens MANUAL DIFF REQ NO Normal [facility] Comment on above: Performed By: #### L IVER, LDH, BMP #### [facility] [address] [place] [address] Dr. Esthela Stevens MCH (RBC) [Entitic mass] 26.8 pg Normal 26.7-34.0 [facility] Comment on above: Performed By: #### L IVER, LDH, BMP #### [facility] [address] [place] [address] Dr. Esthela Stevens MCHC (RBC) [Mass/Vol] 30.7 g/dL Normal 29.9-35.2 [facility] Comment on above: Performed By: #### L IVER, LDH, BMP #### [facility] [address] [address] [address] Esthela Stevens MCV (RBC) [Entitic vol] 87.4 fL Normal 81.0-99.0 [facility] Comment on above: Performed By: #### L IVER, LDH, BMP #### [facility] [address] [place] [address] Dr. Esthela Stevens MONO # 0.6 103/ul Normal 0.3-0.8 [facility] Comment on above: Performed By: #### L IVER, LDH, BMP #### [facility] [address] [place] [address] Dr. Esthela Stevens Monocytes/100 WBC (Bld) 9.4 % Normal 1.7-12.0 [facility] Comment on above: Performed By: #### L IVER, LDH, BMP #### [facility] [address] [place] [address] Dr. Esthela Stevens NEUT # 3.8 103/ul Normal 1.4-6.5 [facility] Comment on above: Performed By: #### L IVER, LDH, BMP #### [facility] [address] [place] [address] Dr. Esthela Stevens Neutrophils/100 WBC (Bld) 59.8 % Normal 43.0-75.0 [facility] Comment on above: Performed By: #### L IVER, LDH, BMP #### [facility] [address] [place] [address] Dr. Esthela Stevens Platelet mean volume (Bld) [Entitic vol] 9.6 fL Normal 9.5-13.5 [facility] Comment on above: Performed By: #### L IVER, LDH, BMP #### [facility] [address] [place] [address] Dr. Esthela Stevens PLT 341 103/ul Normal 150-450 [facility] Comment on above: Performed By: #### L IVER, LDH, BMP #### [facility] [address] [place] [address] Dr. Esthela Stevens RBC 4.59 106/ul Normal 4.20-5.40 [facility] Comment on above: Performed By: #### L IVER, LDH, BMP #### [facility] [address] [place], [place] [address] Dr. Esthela Stevens WBC 6.3 103/ul Normal 4.0-11.0 [facility] Comment on above: Performed By: #### L IVER, LDH, BMP #### [facility] [address] [place], [place] [address] ABD/PELV W CONon [...] TIMMY SHAY Date: 2022-08-12 17:04 Normal [facility] CULTURE URINEon 08-12-2022 CULTURE URINE Culture Observations: MODERATE GROWTH OF MIXED GENITAL SUNITA. NO POTENTIAL PATHOGENS SEEN. Normal [facility] Comment on above: Performed By: #### L IVER, LDH, BMP #### [facility] [address] [address] [address] Esthela Stevens ER URINE PROFILEon 3 Bilirubin Ql (U) Negative Normal NEGATIVE [facility] Comment on above: Performed By: #### P REG #### [facility] [address] [place] [address] Dr. Esthela Stevens Clarity (U) CLEAR Normal CLEAR [facility] Comment on above: Performed By: #### P REG #### [facility] [address] [address] [address] Esthela Stevens Color (U) LT. YELLOW Normal YELLOW [facility] Comment on above: Performed By: #### P REG #### [facility] [address] [address] [address] Esthela ARGUELLES A micrscopic examination will be performed if indicated. Normal [facility] Comment on above: Performed By: #### P REG #### [facility] [address] [address] [address] Esthela Stevens Glucose Ql (U) Negative Normal NEGATIVE [facility] Comment on above: Performed By: #### P REG #### [facility] [address] [address] [address] Esthela Stevens Hemoglobin Ql (U) Negative Normal NEGATIVE [facility] Comment on above: Performed By: #### P REG #### [facility] [address] [place] [address] Dr. Esthela Stevens Ketones Ql (U) Negative Normal NEGATIVE [facility] Comment on above: Performed By: #### P REG #### [facility] [address] [place] [address] Dr. Esthela Stevens LEUKOCYTES SMALL Abnormal NEGATIVE [facility] Comment on above: Performed By: #### P REG #### [facility] [address] [place] [address] Dr. Esthela Stevens Nitrite Ql (U) Negative Normal NEGATIVE [facility] Comment on above: Performed By: #### P REG #### [facility] [address] [place] [address] Dr. Esthela Stevens pH (U) 7.0 [pH] Normal 5-9 [facility] Comment on above: Performed By: #### P REG #### [facility] [address] [place] [address] Dr. Esthela Stevens SPEC GRAVITY 1.020 Normal 1.005-<=1.025 [facility] Comment on above: Performed By: #### P REG #### [facility] [address] [place] [address] Dr. Esthela Stevens UA PROTEIN Negative Normal NEGATIVE/ TRACE [facility] Comment on above: Performed By: #### P REG #### [facility] [address] [place] [address] Dr. Esthela Stevens UR MICRO IND INDICATED Normal [facility] Comment on above: Performed By: #### P REG #### [facility] [address] [place] [address] Dr. Esthela Stevens Urobilinogen Qn (U) 0.2 {Emeka'U}/dL Normal 0.2 - 1. 0 [facility] Comment on above: Performed By: #### P REG #### [facility] [address] [place] [address] Dr. Esthela Stevens LIPASEon 08-12-2022 Lipase [Catalytic activity/Vol] 75.0 U/L Normal 73.0-393.0 [facility] Comment on above: Performed By: #### P REG #### [facility] [address] [address] [address] Esthela Stevens URon 08-12-2022 , QUAL Negative Normal NEGATIVE [facility] Comment on above: Performed By: #### P REG #### [facility] [address] [address] [address] Esthela Stevens PROF 14(COMP METB)on 023 Albumin [Mass/Vol] 4.0 g/dL Normal 3.4-5.0 [facility] Comment on above: Performed By: #### P REG #### [facility] [address] [place] [address] Dr. Esthela Stevens Albumin/Globulin [Mass ratio] 1.1 {ratio} Normal [facility] Comment on above: Performed By: #### P REG #### [facility] [address] [place] [address] Dr. Esthela Stevens ALP [Catalytic activity/Vol] 73 U/L Normal 46-116 [facility] Comment on above: Performed By: #### P REG #### [facility] [address] [place] [address] Dr. Esthela Stevens ALT [Catalytic activity/Vol] 82 U/L Critically high 14-59 [facility] Comment on above: Performed By: #### P REG #### [facility] [address] [place] [address] Dr. Esthela Stevens Anion gap [Moles/Vol] 12.0 mmol/L Normal [facility] Comment on above: Performed By: #### P REG #### [facility] [address] [address] [address] Esthela Stevens AST [Catalytic activity/Vol] 33 U/L Normal 15-37 [facility] Comment on above: Performed By: #### P REG #### [facility] [address] [place] [address] Dr. Esthela Stevens Bilirubin [Mass/Vol] 0.2 mg/dL Normal 0.2-1.0 [facility] Comment on above: Performed By: #### P REG #### [facility] [address] [address] [address] Esthela Stevens Calcium [Mass/Vol] 9.4 mg/dL Normal 8.5-10.1 [facility] Comment on above: Performed By: #### P REG #### [facility] [address] [address] [address] Esthela Stevens Chloride [Moles/Vol] 102 mmol/L Normal 98-107 [facility] Comment on above: Performed By: #### P REG #### [facility] [address] [place] [address] Dr. Esthela Stevens CO2 [Moles/Vol] 27.8 mmol/L Normal 21.0-32.0 [facility] Comment on above: Performed By: #### P REG #### [facility] [address] [place] [address] Dr. Esthela Stevens Creatinine [Mass/Vol] 0.69 mg/dL Normal 0.55-1.02 [facility] Comment on above: Performed By: #### P REG #### [facility] [address] [place] [address] Dr. Esthela Stevens EGFR-AF GUINEAN >60 Normal >=60 [facility] Comment on above: Performed By: #### P REG #### [facility] [address] [place] [address] Dr. Esthela Stevens EGFR-NON AF GUINEAN >60 Normal >=60 [facility] [facility] Comment on above: Performed By: #### P REG #### [facility] [address] [address] [address] Esthela Stevens Globulin (S) [Mass/Vol] 3.5 g/dL Normal [facility] Comment on above: Performed By: #### P REG #### [facility] [address] [place] [address] Dr. Esthela Stevens Glucose [Mass/Vol] 109 mg/dL Critically high 74-106 [facility] Comment on above: Performed By: #### P REG #### [facility] [address] [address] [address] Esthela Stevens Potassium [Moles/Vol] 3.8 mmol/L Normal 3.5-5.1 [facility] Comment on above: Performed By: #### P REG #### [facility] [address] [place] [address] Dr. Esthela Stevens Protein [Mass/Vol] 7.5 g/dL Normal 6.4-8.2 [facility] Comment on above: Performed By: #### P REG #### [facility] [address] [place] [address] Dr. Esthela Stevens Sodium [Moles/Vol] 138 mmol/L Normal 136-145 [facility] Comment on above: Performed By: #### P REG #### [facility] [address] [place] [address] Dr. Esthela Stevens Urea nitrogen [Mass/Vol] 6.0 mg/dL Critically low 7.0-18.0 [facility] Comment on above: Performed By: #### P REG #### [facility] [address] [place] [address] Dr. Esthela Stevens Urea nitrogen/Creatinine [Mass ratio] 8.7 mg/mg Normal [facility] Comment on above: Performed By: #### P REG #### [facility] [address] [place] [address] Dr. Esthela Stevens URINE MICROSCOPIC ONLYon BACTERIA SMALL Abnormal NONE SEEN [facility] Comment on above: Performed By: #### P REG #### [facility] [address] [place] [address] Dr. Esthela Stevens Bacteria identified Cx Nom (U) INDICATED Normal [facility] Comment on above: Performed By: #### P REG #### [facility] [address] [place] [address] Dr. Esthela Stevens CAST NONE SEEN Normal NONE SEEN [facility] Comment on above: Performed By: #### P REG #### [facility] [address] [place] [address] Dr. Esthela Stevens Crystals LM Nom (Urine sed) NONE SEEN Normal NONE SEEN [facility] Comment on above: Performed By: #### P REG #### [facility] [address] [address] [address] Esthela Stevens Epithelial cells LM Ql (Urine sed) MODERATE Abnormal NONE SEEN /RARE [facility] Comment on above: Performed By: #### P REG #### [facility] [address] [address] [address] Esthela Stevens MUCOUS NONE SEEN Normal NONE SEEN [facility] Comment on above: Performed By: #### P REG #### [facility] [address] [address] [address] Esthela Stevens RBC NONE SEEN Abnormal 0-2 [facility] Comment on above: Performed By: #### P REG #### [facility] [address] [address] [address] Esthela Stevens WBC 2-5 Abnormal NONE SEEN [facility] Comment on above: Performed By: #### P REG #### [facility] [address] [place] [address] Dr. Esthela Stevens PAP ACOG PANEL 2: 21 to 31on 08-11-2022 . . Normal [facility] Comment on above: Performed By: #### [id number] #### [facility] [address] [place] [address] Dr. Esthela Stevens Age Gdln ACOG Testing - Normal [facility] Comment on above: Performed By: #### [id number] #### [facility] [address] [place] [address] Dr. Esthela Stevens DIAGNOSIS: Comment Abnormal [facility] Comment on above: Result Comment: EPIT HELIAL CELL ABNORMALITY. ATYPICAL SQUAMOUS CELLS OF UNDETERMINED SIGNIFICANCE (ASC-US). Performed By: #### [id number] #### [facility] [address] [place] [address] Dr. Esthela Stevens Electronically signed by: Comment Normal [facility] Comment on above: Result Comment: Zoe Moncada MD, Pathologist Performed By: #### [id number] #### [facility] [address] [place] [address] Dr. Esthela Stevens HPV Aptima Negative Normal Negative [facility] Comment on above: Result Comment: This nucleic acid amplification test detects fourteen high-risk HPV types (16,18,31,33,35,39,45,51,52,56,58,59,66,68) without differentiation. Performed By: #### [id number] #### [facility] [address] [place] [address] Dr. Esthela Stevens Methodology: Comment [facility] Comment on above: Result Comment: This liquid based ThinPrep(R) pap test was screened with the use of an image guided system. Performed By: #### [id number] #### [facility] [address] [place] [address] Dr. Esthela Stevens Note: Comment Normal [facility] Comment on above: Result Comment: The Pap smear is a screening test designed to aid in the detection of premalignant and malignant conditions of the uterine cervix. It is not a diagnostic procedure and should not be used as the sole means of detecting cervical cancer. Both false-positive and false-negative reports do occur. . Performed By: #### [id number] #### [facility] [address] [place] [address] Dr. Esthela Stevens Pathologist Provided ICD10 Comment [facility] Comment on above: Result Comment: [id number]. [id number] Performed By: #### [id number] #### [facility] [address] [place] [address] Dr. Esthela Stevens Performed by: Comment Normal [facility] Comment on above: Result Comment: Nevin Ardon Iron Worker Foreman (ASCP) Performed By: #### [id number] #### [facility] [address] [place] [address] Dr. Esthela Stevens Reflex Criteria: Comment Normal [facility] Comment on above: Result Comment: See below for HPV testing results. . Performed By: #### [id number] #### [facility] [address] [place] [address] Dr. Esthela Stevens Specimen adequacy: Comment Normal [facility] Comment on above: Result Comment: Sati sfactory for evaluation. Endocervical and/or squamous metaplastic cells (endocervical component) are present. Performed By: #### [id number] #### [facility] [address] [place] [address] Dr. Esthela Stevens GI PANEL (PCR)on 06-03-2022 Adenovirus F 40/41 Not detected Normal NOT DETECTED [facility] Comment on above: Performed By: #### P REG #### [facility] [address] [place] [address] Dr. Esthela Stevens Astrovirus Not detected Normal NOT DETECTED [facility] Comment on above: Performed By: #### P REG #### [facility] [address] [place] [address] Dr. Esthela Stevens C. Diff toxin A/B Detected Critically abnormal NOT DETECTED [facility] Comment on above: Performed By: #### P REG #### [facility] [address] [place] [address] Dr. Esthela Stevens Campylobacter Not detected Normal NOT DETECTED [facility] Comment on above: Performed By: #### P REG #### [facility] [address] [place] [address] Dr. Esthela Stevens Cryptosporidium Not detected Normal NOT DETECTED [facility] Comment on above: Performed By: #### P REG #### [facility] [address] [place] [address] Dr. Esthela Stevens Cyclos. Cayetanensis Not detected Normal NOT DETECTED [facility] Comment on above: Performed By: #### P REG #### [facility] [address] [place] [address] Dr. Esthela Stevens E. Coli O157 Not Applicable Normal Not Applicable [facility] Comment on above: Performed By: #### P REG #### [facility] [address] [place] [address] Dr. Esthela Stevens E. histolytica Not detected Normal NOT DETECTED [facility] Comment on above: Performed By: #### P REG #### [facility] [address] [place] [address] Dr. Esthela Stevens EAEC Not detected Normal NOT DETECTED [facility] Comment on above: Performed By: #### P REG #### [facility] [address] [place] [address] Dr. Esthela Stevens EIEC Not detected Normal NOT DETECTED [facility] Comment on above: Performed By: #### P REG #### [facility] [address] [address] [address] Esthela Stevens EPEC Not detected Normal NOT DETECTED [facility] Comment on above: Performed By: #### P REG #### [facility] [address] [address] [address] Esthela Stevens ETEC Not detected Normal NOT DETECTED [facility] Comment on above: Performed By: #### P REG #### [facility] [address] [address] [address] Esthela Stevens G. Lamblia Not detected Normal NOT DETECTED [facility] Comment on above: Performed By: #### P REG #### [facility] [address] [place] [address] Dr. Esthela KELLY CONTROLS PASSED Normal [facility] Comment on above: Performed By: #### P REG #### [facility] [address] [place] [address] Dr. Esthela MERCADO JON HEADER GI PANEL BACTERIA Normal [facility] Comment on above: Performed By: #### P REG #### [facility] [address] [place] [address] Dr. Esthela LARA ECOLI GI PANEL DIARRHEAGENIC E.COLI / SHIGELLA Normal [facility] Comment on above: Performed By: #### P REG #### [facility] [address] [place] [address] Dr. Esthela LARA INFO SEE BELOW Normal [facility] Comment on above: Result Comment: EAEC - Enteroaggregative E. Coli EPEC- Enteropathogenic E. Coli ETEC- Enterotoxigenic E. Coli lt/st STEC- Shigella-like toxin-producing E. Coli stx1/stx2 EIEC- Shigella/Enteroinvasive E. Coli Performed By: #### P REG #### [facility] [address] [place] [address] Dr. Esthela LARA PARASITES GI PANEL PARASITES Normal [facility] Comment on above: Performed By: #### P REG #### [facility] [address] [address] [address] Esthela Stevens [facility] VIRUS GI PANEL VIRUSES Normal [facility] Comment on above: Performed By: #### P REG #### [facility] [address] [address] [address] Esthela Stevens Norovirus GI/GII Not detected Normal NOT DETECTED [facility] Comment on above: Performed By: #### P REG #### [facility] [address] [place] [address] Dr. Esthela Stevens P. Shigelloides Not detected Normal NOT DETECTED [facility] Comment on above: Performed By: #### P REG #### [facility] [address] [place] [address] Dr. Esthela Stevens Rotavirus A Not detected Normal NOT DETECTED [facility] Comment on above: Performed By: #### P REG #### [facility] [address] [place] [address] Dr. Esthela Stevens Salmonella Not detected Normal NOT DETECTED [facility] Comment on above: Performed By: #### P REG #### [facility] [address] [place] [address] Dr. Esthela Stevens Sapovirus Not detected Normal NOT DETECTED [facility] Comment on above: Performed By: #### P REG #### [facility] [address] [place] [address] Dr. Esthela Stevens STEC Not detected Normal NOT DETECTED [facility] Comment on above: Performed By: #### P REG #### [facility] [address] [place] [address] Dr. Esthela Stevens Vibrio Not detected Normal NOT DETECTED [facility] Comment on above: Performed By: #### P REG #### [facility] [address] [place] [address] Dr. Esthela Stevens Vibrio Cholera Not detected Normal NOT DETECTED [facility] Comment on above: Performed By: #### P REG #### [facility] [address] [place] [address] Dr. Yilan Stevens Y. Enterocolitica Not detected Normal NOT DETECTED [facility] Comment on above: Performed By: #### P REG #### [facility] [address] [place] [address] Dr. Esthela Stevens CBC AUTO DIFFon 06-02-2022 BASO # 0.1 103/ul Normal 0.0-0.1 [facility] Comment on above: Performed By: #### L IVER, LDH, BMP #### [facility] [address] [place] [address] Dr. Esthela Stevens Basophils/100 WBC (Bld) 0.6 % Normal 0.2-2.0 [facility] Comment on above: Performed By: #### L IVER, LDH, BMP #### [facility] [address] [place] [address] Dr. Esthela Stevens EO # 0.5 103/ul Normal 0.0-0.7 [facility] Comment on above: Performed By: #### L IVER, LDH, BMP #### [facility] [address] [place] [address] Dr. Esthela Stevens Eosinophils/100 WBC (Bld) 4.3 % Normal 0.9-7.0 [facility] Comment on above: Performed By: #### L IVER, LDH, BMP #### [facility] [address] [place] [address] Dr. Esthela Stevens Erythrocyte distribution width (RBC) [Ratio] 13.0 % Normal 11.0-15.0 [facility] Comment on above: Performed By: #### L IVER, LDH, BMP #### [facility] [address] [place] [address] Dr. Esthela Stevens Hematocrit (Bld) [Volume fraction] 33.6 % Critically low 36.0-48.0 [facility] Comment on above: Performed By: #### L IVER, LDH, BMP #### [facility] [address] [place] [address] Dr. Esthela Stevens Hemoglobin (Bld) [Mass/Vol] 10.9 g/dL Critically low 12.0-16.0 [facility] Comment on above: Performed By: #### L IVER, LDH, BMP #### [facility] [address] [address] [address] Esthela Stevens IG # 0.05 10e3/ul Critically high 0.00-0.03 [facility] Comment on above: Performed By: #### L IVER, LDH, BMP #### [facility] [address] [place] [address] Dr. Esthela Stevens IG % 0.5 % Normal 0.0-0.5 [facility] Comment on above: Performed By: #### L IVER, LDH, BMP #### [facility] [address] [place] [address] Dr. Esthela Stevens LYMPH # 2.4 103/ul Normal 1.2-3.8 [facility] Comment on above: Performed By: #### L IVER, LDH, BMP #### [facility] [address] [place] [address] Dr. Esthela Stevens Lymphocytes/100 WBC (Bld) 22.4 % Normal 20.5-60.0 [facility] Comment on above: Performed By: #### L IVER, LDH, BMP #### [facility] [address] [place] [address] Dr. Esthela Stevens MANUAL DIFF REQ NO Normal [facility] Comment on above: Performed By: #### L IVER, LDH, BMP #### [facility] [address] [place] [address] Dr. Esthela Stevens MCH (RBC) [Entitic mass] 26.9 pg Normal 26.7-34.0 [facility] Comment on above: Performed By: #### L IVER, LDH, BMP #### [facility] [address] [place] [address] Dr. Esthela Stevens MCHC (RBC) [Mass/Vol] 32.4 g/dL Normal 29.9-35.2 [facility] Comment on above: Performed By: #### L IVER, LDH, BMP #### [facility] [address] [place] [address] Dr. Esthela Stevens MCV (RBC) [Entitic vol] 83.0 fL Normal 81.0-99.0 [facility] Comment on above: Performed By: #### L IVER, LDH, BMP #### [facility] [address] [place] [address] Dr. Esthela Stevens MONO # 0.8 103/ul Normal 0.3-0.8 [facility] Comment on above: Performed By: #### L IVER, LDH, BMP #### [facility] [address] [place] [address] Dr. Esthela Stevens Monocytes/100 WBC (Bld) 7.1 % Normal 1.7-12.0 [facility] Comment on above: Performed By: #### L IVER, LDH, BMP #### [facility] [address] [place] [address] Dr. Esthela Stevens NEUT # 7.0 103/ul Critically high 1.4-6.5 [facility] Comment on above: Performed By: #### L IVER, LDH, BMP #### [facility] [address] [place] [address] Dr. Esthela Stevens Neutrophils/100 WBC (Bld) 65.1 % Normal 43.0-75.0 [facility] Comment on above: Performed By: #### L IVER, LDH, BMP #### [facility] [address] [place] [address] Dr. Esthela Stevens Platelet mean volume (Bld) [Entitic vol] 8.9 fL Critically low 9.5-13.5 [facility] Comment on above: Performed By: #### L IVER, LDH, BMP #### [facility] [address] [place] [address] Dr. Esthela Stevens PLT 519 103/ul Critically high 150-450 [facility] Comment on above: Performed By: #### L IVER, LDH, BMP #### [facility] [address] [place] [address] Dr. Esthela Stevens RBC 4.05 106/ul Critically low 4.20-5.40 [facility] Comment on above: Performed By: #### L IVER, LDH, BMP #### [facility] [address] [address] [address] Esthela Stevens WBC 10.8 103/ul Normal 4.0-11.0 [facility] Comment on above: Performed By: #### L IVER, LDH, BMP #### [facility] [address] [place] [address] Dr. Esthela Stevens PROF 14(COMP METB)on 022 Albumin [Mass/Vol] 3.7 g/dL Normal 3.4-5.0 [facility] Comment on above: Performed By: #### L IVER, LDH, BMP #### [facility] [address] [place] [address] Dr. Esthela Stevens Albumin/Globulin [Mass ratio] 1.0 {ratio} Normal [facility] Comment on above: Performed By: #### L IVER, LDH, BMP #### [facility] [address] [place] [address] Dr. Esthela Stevens ALP [Catalytic activity/Vol] 75 U/L Normal 46-116 [facility] Comment on above: Performed By: #### L IVER, LDH, BMP #### [facility] [address] [place] [address] Dr. Esthela Stevens ALT [Catalytic activity/Vol] 95 U/L Critically high 14-59 [facility] Comment on above: Performed By: #### L IVER, LDH, BMP #### [facility] [address] [place] [address] Dr. Esthela Stevens Anion gap [Moles/Vol] 13.4 mmol/L Normal [facility] Comment on above: Performed By: #### L IVER, LDH, BMP #### [facility] [address] [place] [address] Dr. Esthela Stevens AST [Catalytic activity/Vol] 31 U/L Normal 15-37 [facility] Comment on above: Performed By: #### L IVER, LDH, BMP #### [facility] [address] [place] [address] Dr. Esthela Stevens Bilirubin [Mass/Vol] 0.1 mg/dL Critically low 0.2-1.0 [facility] Comment on above: Performed By: #### L IVER, LDH, BMP #### [facility] [address] [place] [address] Dr. Esthela Stevens Calcium [Mass/Vol] 9.3 mg/dL Normal 8.5-10.1 [facility] Comment on above: Performed By: #### L IVER, LDH, BMP #### [facility] [address] [place] [address] Dr. Esthela Stevens Chloride [Moles/Vol] 102 mmol/L Normal 98-107 [facility] Comment on above: Performed By: #### L IVER, LDH, BMP #### [facility] [address] [place] [address] Dr. Esthela Stevens CO2 [Moles/Vol] 26.4 mmol/L Normal 21.0-32.0 [facility] Comment on above: Performed By: #### L IVER, LDH, BMP #### [facility] [address] [place] [address] Dr. Esthela Stevens Creatinine [Mass/Vol] 0.67 mg/dL Normal 0.55-1.02 [facility] Comment on above: Performed By: #### L IVER, LDH, BMP #### [facility] [address] [place] [address] Dr. Esthela Stevens EGFR-AF GUINEAN >60 Normal >=60 [facility] Comment on above: Performed By: #### L IVER, LDH, BMP #### [facility] [address] [place] [address] Dr. Esthela Stevens EGFR-NON AF GUINEAN >60 Normal >=60 [facility] Comment on above: Performed By: #### L IVER, LDH, BMP #### [facility] [address] [place] [address] Dr. Esthela Stevens Globulin (S) [Mass/Vol] 3.7 g/dL Normal [facility] Comment on above: Performed By: #### L IVER, LDH, BMP #### [facility] [address] [address] [address] Esthela Stevens Glucose [Mass/Vol] 101 mg/dL Normal 74-106 [facility] Comment on above: Performed By: #### L IVER, LDH, BMP #### [facility] [address] [place] [address] Dr. Esthela Stevens Potassium [Moles/Vol] 3.8 mmol/L Normal 3.5-5.1 [facility] Comment on above: Performed By: #### L IVER, LDH, BMP #### [facility] [address] [place] [address] Dr. Esthela Stevens Protein [Mass/Vol] 7.4 g/dL Normal 6.4-8.2 [facility] Comment on above: Performed By: #### L IVER, LDH, BMP #### [facility] [address] [place] [address] Dr. Esthela Stevens Sodium [Moles/Vol] 138 mmol/L Normal 136-145 [facility] Comment on above: Performed By: #### L IVER, LDH, BMP #### [facility] [address] [place] [address] Dr. Esthela Stevens Urea nitrogen [Mass/Vol] 12.0 mg/dL Normal 7.0-18.0 [facility] Comment on above: Performed By: #### L IVER, LDH, BMP #### [facility] [address] [place] [address] Dr. Esthela Stevens Urea nitrogen/Creatinine [Mass ratio] 17.9 mg/mg Normal [facility] Comment on above: Performed By: #### L IVER, LDH, BMP #### [facility] [address] [place] [address] Dr. Esthela Stevens CALCIUMon 05-29-2022 Calcium [Mass/Vol] 9.0 mg/dL 8.6 - 10. 5 mg/dL [facility] CBC,PLATELETSon 05-29-2022 Erythrocyte distribution width (RBC) [Ratio] 13.1 % 10.8 - 14.9 % [facility] Hematocrit (Bld) [Volume fraction] 33.0 % Low 34.9 - 44.3 % [facility] Hemoglobin (Bld) [Mass/Vol] 10.5 g/dL Low 11.4 - 15.2 g/dL [facility] Interpretation and review of laboratory results Abnormal [facility] MCH (RBC) [Entitic mass] 27.1 pg 25.9 - 33.[address] [facility] MCHC (RBC) [Mass/Vol] 31.8 g/dL 31.4 - 35.9 g/dL [facility] MCV (RBC) [Entitic vol] 85.1 fL 79.6 - 97.[address] [facility] Platelet mean volume (Bld) [Entitic vol] 9.1 fL 8.5 - 12.[address] [facility] Platelets (Bld) [#/Vol] 423 10*3/uL High 150 - 393 K/uL [facility] RBC (Bld) [#/Vol] 3.88 10*6/uL Low [facility] WBC (Bld) [#/Vol] 7.36 10*3/uL 3.99 - 11. 19 K/uL [facility] CHEM 7 (LYTES,BUN,CREA,GLUC) on 05-29-2022 Anion gap [Moles/Vol] 13 mmol/L 7 - 17 mmol/L [facility] Chloride [Moles/Vol] 104 mmol/L 98 - 10 8 mmol/L [facility] CO2 [Moles/Vol] 26 mmol/L 21 - 31 mmol/L [facility] Creatinine [Mass/Vol] 0.66 mg/dL 0.50 - 1.20 mg/dL [facility] GFR/1.73 sq M.predicted CKD-EPI (S/P/Bld) [Vol [facility]] [facility] Comment on above: Reported eGFR is bas ed on the CKD-EPI 2020 equation using creatinine, age, and sex. Glucose [Mass/Vol] 93 mg/dL 70 - 99 mg/dL [facility] Osmolality Calc [Osmolality] [address] [facility] Potassium [Moles/Vol] 4.2 mmol/L 3.5 - 5.0 mmol/L [facility] Sodium [Moles/Vol] 139 mmol/L 135 - 145 mmol/L [facility] Urea nitrogen [Mass/Vol] 5 mg/dL Low 7 - 25 mg/dL [facility] Urea nitrogen/Creatinine [Mass ratio] 8 mg/mg [facility] MAGNESIUMon 05-29-2022 Magnesium [Mass/Vol] 2.1 mg/dL 1.6 - 2 .6 mg/dL [facility] No Panel Informationon 05-29 Interpretation and review of laboratory results Abnormal [facility] Interpretation and review of laboratory results Normal [facility] PHOSPHATE, INORGANICon 05-29 Phosphate [Mass/Vol] 4.8 mg/dL High 2.2 - 4 .6 mg/dL [facility] CALCIUMon 05-28-2022 Calcium [Mass/Vol] 8.6 mg/dL 8.6 - 10. 5 mg/dL [facility] CBC,PLATELETSon 05-28-2022 Erythrocyte distribution width (RBC) [Ratio] 13.0 % 10.8 - 14.9 % [facility] Hematocrit (Bld) [Volume fraction] 30.5 % Low 34.9 - 44.3 % [facility] Hemoglobin (Bld) [Mass/Vol] 9.8 g/dL Low 11.4 - 15.2 g/dL [facility] Interpretation and review of laboratory results Abnormal [facility] MCH (RBC) [Entitic mass] 26.8 pg 25.9 - 33.[address] [facility] MCHC (RBC) [Mass/Vol] 32.1 g/dL 31.4 - 35.9 g/dL [facility] MCV (RBC) [Entitic vol] 83.6 fL 79.6 - 97.[address] [facility] Platelet mean volume (Bld) [Entitic vol] 9.3 fL 8.5 - 12.[address] [facility] Platelets (Bld) [#/Vol] 374 10*3/uL 150 - 393 K/uL [facility] RBC (Bld) [#/Vol] 3.65 10*6/uL Low [facility] WBC (Bld) [#/Vol] 6.07 10*3/uL 3.99 - 11. 19 K/uL [facility] CHEM 7 (LYTES,BUN,CREA,GLUC) on 05-28-2022 Anion gap [Moles/Vol] 11 mmol/L 7 - 17 mmol/L [facility] Chloride [Moles/Vol] 106 mmol/L 98 - 10 8 mmol/L [facility] CO2 [Moles/Vol] 25 mmol/L 21 - 31 mmol/L [facility] Creatinine [Mass/Vol] 0.50 mg/dL 0.50 - 1.20 mg/dL [facility] GFR/1.73 sq M.predicted CKD-EPI (S/P/Bld) [Vol rate/Area] - PINF [facility] Comment on above: Reported eGFR is bas ed on the CKD-EPI 2020 equation using creatinine, age, and sex. Glucose [Mass/Vol] 89 mg/dL 70 - 99 mg/dL [facility] Osmolality Calc [Osmolality] [address] [facility] Potassium [Moles/Vol] 4.1 mmol/L 3.5 - 5.0 mmol/L [facility] Sodium [Moles/Vol] 138 mmol/L 135 - 145 mmol/L [facility] Urea nitrogen [Mass/Vol] 3 mg/dL Low 7 - 25 mg/dL [facility] Urea nitrogen/Creatinine [Mass ratio] 6 mg/mg [facility] MAGNESIUMon 05-28-2022 Magnesium [Mass/Vol] 1.8 mg/dL 1.6 - 2 .6 mg/dL [facility] No Panel Informationon 05-28 Interpretation and review of laboratory results Abnormal [facility] Interpretation and review of laboratory results Normal [facility] PHOSPHATE, INORGANICon 05-28 Phosphate [Mass/Vol] 4.9 mg/dL High 2.2 - 4 .6 mg/dL [facility] CALCIUMon 05-27-2022 Calcium [Mass/Vol] 8.6 mg/dL 8.6 - 10. 5 mg/dL [facility] CBC,PLATELETSon 05-27-2022 Erythrocyte distribution width (RBC) [Ratio] 12.9 % 10.8 - 14.9 % [facility] Hematocrit (Bld) [Volume fraction] 31.1 % Low 34.9 - 44.3 % [facility] Hemoglobin (Bld) [Mass/Vol] 10.1 g/dL Low 11.4 - 15.2 g/dL [facility] Interpretation and review of laboratory results Abnormal [facility] MCH (RBC) [Entitic mass] 27.2 pg 25.9 - 33.[address] [facility] MCHC (RBC) [Mass/Vol] 32.5 g/dL 31.4 - 35.9 g/dL [facility] MCV (RBC) [Entitic vol] 83.8 fL 79.6 - 97.[address] [facility] Platelet mean volume (Bld) [Entitic vol] 9.2 fL 8.5 - 12.[address] [facility] Platelets (Bld) [#/Vol] 344 10*3/uL 150 - 393 K/uL [facility] RBC (Bld) [#/Vol] 3.71 10*6/uL Low [facility] WBC (Bld) [#/Vol] 6.21 10*3/uL 3.99 - 11. 19 K/uL [facility] CHEM 7 (LYTES,BUN,CREA,GLUC) on 05-27-2022 Anion gap [Moles/Vol] 11 mmol/L 7 - 17 mmol/L [facility] Chloride [Moles/Vol] 105 mmol/L 98 - 10 8 mmol/L [facility] CO2 [Moles/Vol] 26 mmol/L 21 - 31 mmol/L [facility] Creatinine [Mass/Vol] 0.49 mg/dL Low 0.50 - 1.20 mg/dL [facility] GFR/1.73 sq M.predicted CKD-EPI (S/P/Bld) [Vol rate/Area] - PINF [facility] Comment on above: Reported eGFR is bas ed on the CKD-EPI 2020 equation using creatinine, age, and sex. Glucose [Mass/Vol] 93 mg/dL 70 - 99 mg/dL [facility] Interpretation and review of laboratory results Abnormal [facility] Osmolality Calc [Osmolality] [address] [facility] Potassium [Moles/Vol] 4.0 mmol/L 3.5 - 5.0 mmol/L [facility] Sodium [Moles/Vol] 138 mmol/L 135 - 145 mmol/L [facility] Urea nitrogen [Mass/Vol] 3 mg/dL Low 7 - 25 mg/dL [facility] Urea nitrogen/Creatinine [Mass ratio] 6 mg/mg [facility] MAGNESIUMon 05-27-2022 Magnesium [Mass/Vol] 1.9 mg/dL 1.6 - 2 .6 mg/dL [facility] No Panel Informationon 05-27 Interpretation and review of laboratory results Normal [facility] PHOSPHATE, INORGANICon 05-27 Phosphate [Mass/Vol] 4.5 mg/dL 2.2 - 4 .6 mg/dL [facility] CALCIUMon 05-26-2022 Calcium [Mass/Vol] 8.4 mg/dL Low 8.6 - 10. 5 mg/dL [facility] CBC,PLATELETSon 05-26-2022 Erythrocyte distribution width (RBC) [Ratio] 12.8 % 10.8 - 14.9 % [facility] Hematocrit (Bld) [Volume fraction] 31.5 % Low 34.9 - 44.3 % [facility] Hemoglobin (Bld) [Mass/Vol] 10.0 g/dL Low 11.4 - 15.2 g/dL [facility] Interpretation and review of laboratory results Abnormal [facility] MCH (RBC) [Entitic mass] 27.0 pg 25.9 - 33.[address] [facility] MCHC (RBC) [Mass/Vol] 31.7 g/dL 31.4 - 35.9 g/dL [facility] MCV (RBC) [Entitic vol] 84.9 fL 79.6 - 97.[address] [facility] Platelet mean volume (Bld) [Entitic vol] 9.7 fL 8.5 - 12.[address] [facility] Platelets (Bld) [#/Vol] 327 10*3/uL 150 - 393 K/uL [facility] RBC (Bld) [#/Vol] 3.71 10*6/uL Low [facility] WBC (Bld) [#/Vol] 7.91 10*3/uL 3.99 - 11. 19 K/uL [facility] CHEM 7 (LYTES,BUN,CREA,GLUC) on 05-26-2022 Anion gap [Moles/Vol] 13 mmol/L 7 - 17 mmol/L [facility] Chloride [Moles/Vol] 102 mmol/L 98 - 10 8 mmol/L [facility] CO2 [Moles/Vol] 23 mmol/L 21 - 31 mmol/L [facility] Creatinine [Mass/Vol] 0.48 mg/dL Low 0.50 - 1.20 mg/dL [facility] GFR/1.73 sq M.predicted CKD-EPI (S/P/Bld) [Vol rate/Area] - [facility] Comment on above: Reported eGFR is bas ed on the CKD-EPI 2020 equation using creatinine, age, and sex. Glucose [Mass/Vol] 154 mg/dL High 70 - 99 mg/dL [facility] Osmolality Calc [Osmolality] [address] [facility] Potassium [Moles/Vol] 4.1 mmol/L 3.5 - 5.0 mmol/L [facility] Sodium [Moles/Vol] 134 mmol/L Low 135 - 145 mmol/L [facility] Urea nitrogen [Mass/Vol] 3 mg/dL Low 7 - 25 mg/dL [facility] Urea nitrogen/Creatinine [Mass ratio] 6 mg/mg [facility] MAGNESIUMon 05-26-2022 Magnesium [Mass/Vol] 1.8 mg/dL 1.6 - 2 .6 mg/dL [facility] No Panel Informationon 05-26 Interpretation and review of laboratory results Abnormal [facility] Interpretation and review of laboratory results Normal [facility] PHOSPHATE, INORGANICon 05-26 Phosphate [Mass/Vol] 3.4 mg/dL 2.2 - 4 .6 mg/dL [facility] CALCIUMon 05-25-2022 Calcium [Mass/Vol] 8.5 mg/dL Low 8.6 - 10. 5 mg/dL [facility] CBC,PLATELETSon 05-25-2022 Erythrocyte distribution width (RBC) [Ratio] 12.8 % 10.8 - 14.9 % [facility] Hematocrit (Bld) [Volume fraction] 31.7 % Low 34.9 - 44.3 % [facility] Hemoglobin (Bld) [Mass/Vol] 9.8 g/dL Low 11.4 - 15.2 g/dL [facility] Interpretation and review of laboratory results Abnormal [facility] MCH (RBC) [Entitic mass] 26.6 pg 25.9 - 33.[address] [facility] MCHC (RBC) [Mass/Vol] 30.9 g/dL Low 31.4 - 35.9 g/dL [facility] MCV (RBC) [Entitic vol] 85.9 fL 79.6 - 97.[address] [facility] Platelet mean volume (Bld) [Entitic vol] 9.7 fL 8.5 - 12.[address] [facility] Platelets (Bld) [#/Vol] 292 10*3/uL 150 - 393 K/uL [facility] RBC (Bld) [#/Vol] 3.69 10*6/uL Low [facility] WBC (Bld) [#/Vol] 9.85 10*3/uL 3.99 - 11. 19 K/uL [facility] CHEM 7 (LYTES,BUN,CREA,GLUC) on 05-25-2022 Anion gap [Moles/Vol] 13 mmol/L 7 - 17 mmol/L [facility] Chloride [Moles/Vol] 104 mmol/L 98 - 10 8 mmol/L [facility] CO2 [Moles/Vol] 24 mmol/L 21 - 31 mmol/L [facility] Creatinine [Mass/Vol] 0.51 mg/dL 0.50 - 1.20 mg/dL [facility] GFR/1.73 sq M.predicted CKD-EPI (S/P/Bld) [Vol rate/Area] - PINF [facility] Comment on above: Reported eGFR is bas ed on the CKD-EPI 2020 equation using creatinine, age, and sex. Glucose [Mass/Vol] 98 mg/dL 70 - 99 mg/dL [facility] Osmolality Calc [Osmolality] [address] [facility] Potassium [Moles/Vol] 4.0 mmol/L 3.5 - 5.0 mmol/L [facility] Sodium [Moles/Vol] 137 mmol/L 135 - 145 mmol/L [facility] Urea nitrogen [Mass/Vol] 2 mg/dL Low 7 - 25 mg/dL [facility] Urea nitrogen/Creatinine [Mass ratio] 4 mg/mg [facility] MAGNESIUMon 05-25-2022 Magnesium [Mass/Vol] 1.8 mg/dL 1.6 - 2 .6 mg/dL [facility] No Panel Informationon 05-25 Interpretation and review of laboratory results Abnormal [facility] Interpretation and review of laboratory results Normal [facility] PHOSPHATE, INORGANICon 05-25 Phosphate [Mass/Vol] 3.2 mg/dL 2.2 - 4 .6 mg/dL [facility] CALCIUMon 05-24-2022 Calcium [Mass/Vol] 7.9 mg/dL Low 8.6 - 10. 5 mg/dL [facility] CBC,PLATELETSon 05-24-2022 Erythrocyte distribution width (RBC) [Ratio] 13.2 % 10.8 - 14.9 % [facility] Hematocrit (Bld) [Volume fraction] 33.0 % Low 34.9 - 44.3 % [facility] Hemoglobin (Bld) [Mass/Vol] 10.4 g/dL Low 11.4 - 15.2 g/dL [facility] Interpretation and review of laboratory results Abnormal [facility] MCH (RBC) [Entitic mass] 27.2 pg 25.9 - 33.[address] [facility] MCHC (RBC) [Mass/Vol] 31.5 g/dL 31.4 - 35.9 g/dL [facility] MCV (RBC) [Entitic vol] 86.2 fL 79.6 - 97.[address] [facility] Platelet mean volume (Bld) [Entitic vol] 9.7 fL 8.5 - 12.[address] [facility] Platelets (Bld) [#/Vol] 270 10*3/uL 150 - 393 K/uL [facility] RBC (Bld) [#/Vol] 3.83 10*6/uL Low [facility] WBC (Bld) [#/Vol] 13.10 10*3/uL High 3.99 - 11 .19 K/uL [facility] CHEM 7 (LYTES,BUN,CREA,GLUC) on 05-24-2022 Anion gap [Moles/Vol] 10 mmol/L 7 - 17 mmol/L [facility] Chloride [Moles/Vol] 105 mmol/L 98 - 10 8 mmol/L [facility] CO2 [Moles/Vol] 24 mmol/L 21 - 31 mmol/L [facility] Creatinine [Mass/Vol] 0.51 mg/dL 0.50 - 1.20 mg/dL [facility] GFR/1.73 sq M.predicted CKD-EPI (S/P/Bld) [Vol rate/Area] - PINF [facility] Comment on above: Reported eGFR is bas ed on the CKD-EPI 2020 equation using creatinine, age, and sex. Glucose [Mass/Vol] 121 mg/dL High 70 - 99 mg/dL [facility] Osmolality Calc [Osmolality] [address] [facility] Potassium [Moles/Vol] 4.1 mmol/L 3.5 - 5.0 mmol/L [facility] Sodium [Moles/Vol] 135 mmol/L 135 - 145 mmol/L [facility] Urea nitrogen [Mass/Vol] 2 mg/dL Low 7 - 25 mg/dL [facility] Urea nitrogen/Creatinine [Mass ratio] 4 mg/mg [facility] MAGNESIUMon 05-24-2022 Interpretation and review of laboratory results Normal [facility] Magnesium [Mass/Vol] 1.7 mg/dL 1.6 - 2 .6 mg/dL [facility] No Panel Informationon 05-24 Interpretation and review of laboratory results Abnormal [facility] PHOSPHATE, INORGANICon 05-24 Phosphate [Mass/Vol] 2.1 mg/dL Low 2.2 - 4 .6 mg/dL [facility] CALCIUMon 05-23-2022 Calcium [Mass/Vol] 8.0 mg/dL Low 8.6 - 10. 5 mg/dL [facility] Interpretation and review of laboratory results Abnormal [facility] CBC,PLATELETSon 05-23-2022 Erythrocyte distribution width (RBC) [Ratio] 13.0 % 10.8 - 14.9 % [facility] Hematocrit (Bld) [Volume fraction] 38.4 % 34.9 - 44.3 % [facility] Hemoglobin (Bld) [Mass/Vol] 12.3 g/dL 11.4 - 15.2 g/dL [facility] Interpretation and review of laboratory results Abnormal [facility] MCH (RBC) [Entitic mass] 26.8 pg 25.9 - 33.[address] [facility] MCHC (RBC) [Mass/Vol] 32.0 g/dL 31.4 - 35.9 g/dL [facility] MCV (RBC) [Entitic vol] 83.7 fL 79.6 - 97.[address] [facility] Platelet mean volume (Bld) [Entitic vol] 9.6 fL 8.5 - 12.[address] [facility] Platelets (Bld) [#/Vol] 354 10*3/uL 150 - 393 K/uL [facility] RBC (Bld) [#/Vol] 4.59 10*6/uL [facility] WBC (Bld) [#/Vol] 12.80 10*3/uL High 3.99 - 11 .19 K/uL [facility] CHEM 7 (LYTES,BUN,CREA,GLUC) Ordered By: Shraddha Munguia on 05-23-2022 Anion gap [Moles/Vol] 13 mmol/L 7 - 17 mmol/L [facility] Chloride [Moles/Vol] 103 mmol/L 98 - 10 8 mmol/L [facility] CO2 [Moles/Vol] 24 mmol/L 21 - 31 mmol/L [facility] Creatinine [Mass/Vol] 0.68 mg/dL 0.50 - 1.20 mg/dL [facility] GFR/1.73 sq M.predicted CKD-EPI (S/P/Bld) [Vol rate/Area] - PINF [facility] Comment on above: Reported eGFR is bas ed on the CKD-EPI 2020 equation using creatinine, age, and sex. Glucose [Mass/Vol] 148 mg/dL High 70 - 99 mg/dL [facility] Interpretation and review of laboratory results Abnormal [facility] Osmolality Calc [Osmolality] [address] [facility] Potassium [Moles/Vol] 4.9 mmol/L 3.5 - 5.0 mmol/L [facility] Sodium [Moles/Vol] 135 mmol/L 135 - 145 mmol/L [facility] Urea nitrogen [Mass/Vol] 4 mg/dL Low 7 - 25 mg/dL [facility] Urea nitrogen/Creatinine [Mass ratio] 6 mg/mg [facility] MAGNESIUMon 05-23-2022 Magnesium [Mass/Vol] 2.5 mg/dL 1.6 - 2 .6 mg/dL [facility] No Panel Informationon 05-23 Interpretation and review of laboratory results Normal [facility] PHOSPHATE, INORGANICon 05-23 Phosphate [Mass/Vol] 2.7 mg/dL 2.2 - 4 .6 mg/dL [facility] BETA HCG, URINE (POC DEVICE) on 05-22-2022 Beta HCG ( test) Ql (U) Negative Negative [facility] Interpretation and review of laboratory results Normal [facility] Test performed at address of the patient encounter. [facility] CALCIUMon 05-22-2022 Calcium [Mass/Vol] 7.8 mg/dL Low 8.6 - 10. 5 mg/dL [facility] CBC,PLATELETSon 05-22-2022 Erythrocyte distribution width (RBC) [Ratio] 12.7 % 10.8 - 14.9 % [facility] Hematocrit (Bld) [Volume fraction] 37.0 % 34.9 - 44.3 % [facility] Hemoglobin (Bld) [Mass/Vol] 12.0 g/dL 11.4 - 15.2 g/dL [facility] Interpretation and review of laboratory results Abnormal [facility] MCH (RBC) [Entitic mass] 26.3 pg 25.9 - 33.[address] [facility] MCHC (RBC) [Mass/Vol] 32.4 g/dL 31.4 - 35.9 g/dL [facility] MCV (RBC) [Entitic vol] 81.0 fL 79.6 - 97.[address] [facility] Platelet mean volume (Bld) [Entitic vol] 9.5 fL 8.5 - 12.[address] [facility] Platelets (Bld) [#/Vol] 350 10*3/uL 150 - 393 K/uL [facility] RBC (Bld) [#/Vol] 4.57 10*6/uL [facility] WBC (Bld) [#/Vol] 17.70 10*3/uL High 3.99 - 11 .19 K/uL [facility] CHEM 7 (LYTES,BUN,CREA,GLUC) on 05-22-2022 Anion gap [Moles/Vol] 16 mmol/L 7 - 17 mmol/L [facility] Chloride [Moles/Vol] 103 mmol/L 98 - 10 8 mmol/L [facility] CO2 [Moles/Vol] 21 mmol/L 21 - 31 mmol/L [facility] Creatinine [Mass/Vol] 0.56 mg/dL 0.50 - 1.20 mg/dL [facility] GFR/1.73 sq M.predicted CKD-EPI (S/P/Bld) [Vol rate/Area] - [facility] Comment on above: Reported eGFR is bas ed on the CKD-EPI 2020 equation using creatinine, age, and sex. Glucose [Mass/Vol] 133 mg/dL High 70 - 99 mg/dL [facility] Osmolality Calc [Osmolality] [address] [facility] Potassium [Moles/Vol] 3.9 mmol/L 3.5 - 5.0 mmol/L [facility] Sodium [Moles/Vol] 136 mmol/L 135 - 145 mmol/L [facility] Urea nitrogen [Mass/Vol] 6 mg/dL Low 7 - 25 mg/dL [facility] Urea nitrogen/Creatinine [Mass ratio] 11 mg/mg [facility] CONTINUOUS CARDIAC MONITORIN G STRIPon 05-22-[address] [facility] CONTINUOUS CARDIAC MONITORIN G STRIPOrdered By: Unassigned Pacs on 05-22-[address] [facility] Work Phone: HEPATIC FUNCTION PANELon Albumin [Mass/Vol] 3.8 g/dL 3.5 - 5.0 g/dL [facility] ALP [Catalytic activity/Vol] 54 U/L 32 - 126 U/L [facility] ALT [Catalytic activity/Vol] 17 U/L 9 - 48 U/L [facility] AST [Catalytic activity/Vol] 23 U/L 10 - 39 U/L [facility] Bilirubin [Mass/Vol] 0.5 mg/dL NINF - 1.5 mg/dL [facility] Bilirubin.direct [Mass/Vol] 0.2 mg/dL NINF - 0.3 mg/dL [facility] Protein [Mass/Vol] 6.3 g/dL Low 6.4 - 8.3 g/dL [facility] MAGNESIUMon 05-22-2022 Magnesium [Mass/Vol] 1.4 mg/dL Low 1.6 - 2 .6 mg/dL [facility] No Panel Informationon 05-22 ABO/RH(D) TYPE Positive [facility] BLOOD COMPONENT TYPE Red Cells, Leukoreduced [facility] EXPIRATION DATE [facility] Product ABO/RH(D) Positive [facility] Product ABO/RH(D) NUMBER [id number] [facility] PRODUCT CODE [id number] [facility] UNIT STATUS released [facility] Interpretation and review of laboratory results Abnormal [facility] PHOSPHATE, INORGANICon 05-22 Interpretation and review of laboratory results Normal [facility] Phosphate [Mass/Vol] 3.3 mg/dL 2.2 - 4 .6 mg/dL [facility] POC ARTERIAL BLOOD GASon Base excess Calc (Bld) [Moles/Vol] -2.1000 mmol/L -3.0 - 3.0 mmol/L [facility] Calcium.ionized (Bld) [Mass/Vol] 4.22 mg/dL Low 4.60 - 5.30 mg/dL [facility] CO2 (Bld) [Partial pressure] 33 mm[Hg] [facility] Glucose [Mass/Vol] 127 mg/dL High 70 - 99 mg/dL [facility] HCO3 (Bld) [Moles/Vol] 22 mmol/L 22 - 28 mmol/L [facility] Hematocrit (Bld) [Volume fraction] 34.5 % 34.2 - 45.6 % [facility] Hemoglobin (Bld) [Mass/Vol] 11.3 g/dL Low 11.4 - 15.2 g/dL [facility] Interpretation and review of laboratory results Abnormal [facility] Lactate [Moles/Vol] 1.2 mmol/L 0.5 - 1. 6 mmol/L [facility] Oxygen (Bld) [Partial pressure] 230 mm[Hg] High [facility] Oxygen saturation in Blood 99 % [facility] pH (Bld) 7.42 [pH] 7.35 - 7.[address] [facility] Potassium [Moles/Vol] 3.6 mmol/L 3.5 - 5.0 mmol/L [facility] Sodium [Moles/Vol] 137 mmol/L 135 - 145 mmol/L [facility] Specimen source Nom (Unsp spec) Arterial [facility] Test performed at address of the patient encounter. [facility] Base excess Calc (Bld) [Moles/Vol] 0.0 mmol/L -3.0 - 3.0 mmol/L [facility] Calcium.ionized (Bld) [Mass/Vol] 4.56 mg/dL Low 4.60 - 5.30 mg/dL [facility] CO2 (Bld) [Partial pressure] 38 mm[Hg] [facility] Glucose [Mass/Vol] 138 mg/dL High 70 - 99 mg/dL [facility] HCO3 (Bld) [Moles/Vol] 24 mmol/L 22 - 28 mmol/L [facility] Hematocrit (Bld) [Volume fraction] 34.7 % 34.2 - 45.6 % [facility] Hemoglobin (Bld) [Mass/Vol] 11.3 g/dL Low 11.4 - 15.2 g/dL [facility] Interpretation and review of laboratory results Abnormal [facility] Oxygen (Bld) [Partial pressure] 197 mm[Hg] High [facility] Oxygen saturation in Blood 99 % [facility] pH (Bld) 7.42 [pH] 7.35 - 7.45 [facility] [facility] Potassium [Moles/Vol] 3.4 mmol/L Low 3.5 - 5.0 mmol/L [facility] Sodium [Moles/Vol] 138 mmol/L 135 - 145 mmol/L [facility] Specimen source Nom (Unsp spec) Arterial [facility] Test performed at address of the patient encounter. [facility] PREPARE TO TRANSFUSE OR RED BLOOD CELLSon 05-22-2022 UNIT NUMBER [id number] [facility] UNIT NUMBER [id number] [facility] PROTIME-INRon 05-22-2022 INR Coag (Bld) [Relative time] 1.2 {INR} High 0.9 - 1.[address] [facility] Interpretation and review of laboratory results Abnormal [facility] PT Coag (PPP) [Time] 14.8 s High [facility] TYPE AND SCREENon 05-22-2022 ABO/RH(D) TYPE Positive [facility] XR Abdomen Single viewon IMPRESSION: Appropriate position [...] of the nasogastric tube in the stomach. [facility] Radiology Study observation (narrative) [facility] XR Abdomen Single viewOrdere d By: Debora Burciaga on 05-22-[address] [facility] Work Phone: PREG HCG QUALon 04-08-2022 , QUAL Negative Normal NEGATIVE [facility] Comment on above: Performed By: #### P REG #### [facility] [address] [address] [address] Esthela Stevens Covid-19 PCR ([facility]on 03-19 SARS-CoV-2 (COVID-19) RNA JORGE LUIS+probe Ql (Unsp spec) Not detected Normal NOT DETECTED [facility] Comment on above: Result Comment: This test is not yet approved or cleared by the [place] FDA. When there are no FDA-approved or cleared tests available, and other criteria are met, FDA can make tests available under an emergency access mechanism called an Emergency Use Authorization (EUA). The EUA for this test is supported by the [employer] of Health and Human Service's (HHS's) declaration [...] consistent with SARS-CoV-2. Performed By: #### L SONU GARDNER BMP #### [facility] [address] [address] [address] Abdomen and Pelvis [...] error, please notify the sender immediately at [phone] and permanently delete the original report and [...] error, please notify the sender immediately at [phone] and permanently delete the original report and destroy any copies or printouts. [facility] CT Abdomen and Pelvis W cont rast IVOrdered By: Avinash Miller on 04-01-[address] [facility] CT Chest W contrast Jason IMPRESSION: [...] 1. No evidence for intrathoracic metastatic disease [facility] CT Chest W contrast IVOrdere d By: Yovany Bills on 03-31-[address] [facility] Work Phone: No Panel Informationon 03-31 Radiology Study observation (narrative) [facility] CBC AND ELECTRONIC DIFFon Basophils (Bld) [#/Vol] 0.05 10*3/uL 0.00 - 0.15 K/uL [facility] Basophils/100 WBC (Bld) 0.6 % [facility] Differential cell count method Nom (Bld) Electronic Differential [facility] Eosinophils (Bld) [#/Vol] 0.07 10*3/uL 0.00 - 0.42 K/uL [facility] Eosinophils/100 WBC (Bld) 0.8 % [facility] Erythrocyte distribution width (RBC) [Ratio] 13.4 % 10.8 - 14.9 % [facility] Hematocrit (Bld) [Volume fraction] 37.9 % 34.9 - 44.3 % [facility] Hemoglobin (Bld) [Mass/Vol] 11.9 g/dL 11.4 - 15.2 g/dL [facility] Immature granulocytes (Bld) [#/Vol] 0.04 10*3/uL <=0.[address] [facility] Immature granulocytes/100 WBC (Bld) 0.5 % [facility] Interpretation and review of laboratory results Abnormal [facility] Lymphocytes (Bld) [#/Vol] 2.33 10*3/uL 1.16 - 3.51 K/uL [facility] Lymphocytes/100 WBC (Bld) 27.4 % [facility] MCH (RBC) [Entitic mass] 26.3 pg 25.9 - 33.[address] [facility] MCHC (RBC) [Mass/Vol] 31.4 g/dL 31.4 - 35.9 g/dL [facility] MCV (RBC) [Entitic vol] 83.8 fL 79.6 - 97.[address] [facility] Monocytes (Bld) [#/Vol] 0.46 10*3/uL 0.22 - 0.87 K/uL [facility] Monocytes/100 WBC (Bld) 5.4 % [facility] Neutrophils (Bld) [#/Vol] 5.55 10*3/uL 1.64 - 7.28 K/uL [facility] Nucleated RBC/100 WBC (Bld) [Ratio] 0.0 % <=0.2 /[address] [facility] Platelet mean volume (Bld) [Entitic vol] 10.0 fL 8.5 - 12.[address] [facility] Platelets (Bld) [#/Vol] 402 10*3/uL High 150 - 393 K/uL [facility] RBC (Bld) [#/Vol] 4.52 10*6/uL [facility] Segmented neutrophils/100 WBC (Bld) 65.3 % [facility] WBC (Bld) [#/Vol] 8.50 10*3/uL 3.99 - 11. 19 K/uL [facility] COMPREHENSIVE METABOLIC PANE Shamir 03-19-2022 Albumin [Mass/Vol] 4.5 g/dL 3.5 - 5.0 g/dL [facility] ALP [Catalytic activity/Vol] 67 U/L 32 - 126 U/L [facility] ALT [Catalytic activity/Vol] 15 U/L 9 - 48 U/L [facility] Anion gap [Moles/Vol] 16 mmol/L 7 - 17 mmol/L [facility] AST [Catalytic activity/Vol] 14 U/L 10 - 39 U/L [facility] Bilirubin [Mass/Vol] 0.4 mg/dL <1.[address] [facility] Calcium [Mass/Vol] 9.8 mg/dL 8.6 - 10. 5 mg/dL [facility] Chloride [Moles/Vol] 100 mmol/L 98 - 10 8 mmol/L [facility] CO2 [Moles/Vol] 27 mmol/L 21 - 31 mmol/L [facility] Creatinine [Mass/Vol] 0.66 mg/dL 0.50 - 1.20 mg/dL [facility] GFR/1.73 sq M.predicted CKD-EPI (S/P/Bld) [Vol rate/Area] >90 >=60 mL/min/1.73m2 [facility] Comment on above: Reported eGFR is bas ed on the CKD-EPI 2020 equation using creatinine, age, and sex. Glucose [Mass/Vol] 73 mg/dL 70 - 99 mg/dL [facility] Osmolality Calc [Osmolality] [address] [facility] Potassium [Moles/Vol] 3.6 mmol/L 3.5 - 5.0 mmol/L [facility] Protein [Mass/Vol] 7.4 g/dL 6.4 - 8.3 g/dL [facility] Sodium [Moles/Vol] 139 mmol/L 135 - 145 mmol/L [facility] Urea nitrogen [Mass/Vol] 10 mg/dL 7 - 25 mg/dL [facility] Urea nitrogen/Creatinine [Mass ratio] 15 mg/mg [facility] PT,INR,PTTon 03-19-2022 aPTT Coag (PPP) [Time] 36.[address] [facility] INR Coag (Bld) [Relative time] 1.2 {INR} High [facility] Interpretation and review of laboratory results Abnormal [facility] PT Coag (PPP) [Time] 14.6 s High [facility] CBC AUTO DIFFon 02-03-2022 BASO # 0.1 103/ul Normal 0.0-0.1 [facility] Comment on above: Performed By: #### L IVER, LDH, BMP #### [facility] [address] [place] [address] Dr. Esthela Stevens Basophils/100 WBC (Bld) 0.5 % Normal 0.2-2.0 [facility] Comment on above: Performed By: #### L IVER, LDH, BMP #### [facility] [address] [place] [address] Dr. Esthela Stevens EO # 0.1 103/ul Normal 0.0-0.7 [facility] Comment on above: Performed By: #### L IVER, LDH, BMP #### [facility] [address] [place] [address] Dr. Esthela Stevens Eosinophils/100 WBC (Bld) 1.2 % Normal 0.9-7.0 [facility] Comment on above: Performed By: #### L IVER, LDH, BMP #### [facility] [address] [place] [address] Dr. Esthela Stevens Erythrocyte distribution width (RBC) [Ratio] 13.2 % Normal 11.0-15.0 [facility] Comment on above: Performed By: #### L IVER, LDH, BMP #### [facility] [address] [place] [address] Dr. Esthela Stevens Hematocrit (Bld) [Volume fraction] 38.4 % Normal 36.0-48.0 [facility] Comment on above: Performed By: #### L IVER, LDH, BMP #### [facility] [address] [place] [address] Dr. Esthela Stevens Hemoglobin (Bld) [Mass/Vol] 12.2 g/dL Normal 12.0-16.0 [facility] Comment on above: Performed By: #### L IVER, LDH, BMP #### [facility] [address] [place] [address] Dr. Esthela Stevens IG # 0.06 10e3/ul Critically high 0.00-0.03 [facility] Comment on above: Performed By: #### L IVER, LDH, BMP #### [facility] [address] [address] [address] Esthela Stevens IG % 0.6 % Critically high 0.0-0.5 [facility] Comment on above: Performed By: #### L IVER, LDH, BMP #### [facility] [address] [address] [address] Esthela Stevens LYMPH # 2.1 103/ul Normal 1.2-3.8 [facility] Comment on above: Performed By: #### L IVER, LDH, BMP #### [facility] [address] [place] [address] Dr. Esthela Stevens Lymphocytes/100 WBC (Bld) 21.7 % Normal 20.5-60.0 [facility] Comment on above: Performed By: #### L IVER, LDH, BMP #### [facility] [address] [place] [address] Dr. Esthela Stevens MANUAL DIFF REQ NO Normal [facility] Comment on above: Performed By: #### L IVER, LDH, BMP #### [facility] [address] [place] [address] Dr. Esthela Stevens MCH (RBC) [Entitic mass] 26.5 pg Critically low 26.7-34.0 [facility] Comment on above: Performed By: #### L IVER, LDH, BMP #### [facility] [address] [place] [address] Dr. Esthela Stevens MCHC (RBC) [Mass/Vol] 31.8 g/dL Normal 29.9-35.2 [facility] Comment on above: Performed By: #### L IVER, LDH, BMP #### [facility] [address] [place] [address] Dr. Esthela Stevens MCV (RBC) [Entitic vol] 83.5 fL Normal 81.0-99.0 [facility] Comment on above: Performed By: #### L IVER, LDH, BMP #### [facility] [address] [place] [address] Dr. Esthela Stevens MONO # 0.7 103/ul Normal 0.3-0.8 [facility] Comment on above: Performed By: #### L IVER, LDH, BMP #### [facility] [address] [place] [address] Dr. Esthela Stevens Monocytes/100 WBC (Bld) 7.5 % Normal 1.7-12.0 [facility] Comment on above: Performed By: #### L IVER, LDH, BMP #### [facility] [address] [place] [address] Dr. Esthela Stevens NEUT # 6.8 103/ul Critically high 1.4-6.5 [facility] Comment on above: Performed By: #### L IVER, LDH, BMP #### [facility] [address] [place] [address] Dr. Esthela Stevens Neutrophils/100 WBC (Bld) 68.5 % Normal 43.0-75.0 [facility] Comment on above: Performed By: #### L IVER, LDH, BMP #### [facility] [address] [place] [address] Dr. Esthela Stevens Platelet mean volume (Bld) [Entitic vol] 9.4 fL Critically low 9.5-13.5 [facility] Comment on above: Performed By: #### L IVER, LDH, BMP #### [facility] [address] [place] [address] Dr. Esthela Stevens PLT 403 103/ul Normal 150-450 [facility] Comment on above: Performed By: #### L IVER, LDH, BMP #### [facility] [address] [place] [address] Dr. Esthela Stevens RBC 4.60 106/ul Normal 4.20-5.40 [facility] Comment on above: Performed By: #### L IVER, LDH, BMP #### [facility] [address] [place] [address] Dr. Esthela Stevens WBC 9.9 103/ul Normal 4.0-11.0 [facility] Comment on above: Performed By: #### L IVER, LDH, BMP #### [facility] [address] [address] [address] ABD/PELV W CONon [...] CAROLYN WALSH Date: 2022-02-03 12:14 Normal [facility] Covid-19 PCR ([facility])on 01-16 SARS-CoV-2 (COVID-19) RNA JORGE LUIS+probe Ql (Unsp spec) Not detected Normal NOT DETECTED [facility] Comment on above: Result Comment: [...] for this test is supported by the [place] of Health and Human Service's declaration that [...] By: #### L IVER, LDH, BMP #### [facility] [address] [place] [address] Dr. Esthela Stevens ER URINE PROFILEon 2 Bilirubin Ql (U) Negative Normal NEGATIVE [facility] Comment on above: Performed By: #### ERUM WALLACERO #### [facility] [address] [place] [address] Dr. Esthela Stevens Clarity (U) CLEAR Normal CLEAR [facility] Comment on above: Performed By: #### ERUM WALLACERO #### [facility] [address] [place] [address] Dr. Esthela Stevens Color (U) LT. YELLOW Normal YELLOW [facility] Comment on above: Performed By: #### ERUM WALLACERO #### [facility] [address] [place] [address] Dr. Esthela ARGUELLES A micrscopic examination will be performed if indicated. Normal [facility] Comment on above: Performed By: #### ERUM WALLACERO #### [facility] [address] [place] [address] Dr. Esthela Stevens Glucose Ql (U) Negative Normal NEGATIVE [facility] Comment on above: Performed By: #### ERUM WALLACERO #### [facility] [address] [place] [address] Dr. Esthela Stevens Hemoglobin Ql (U) Negative Normal NEGATIVE [facility] Comment on above: Performed By: #### Toñito SANCHEZ UMHARVINDERRO #### [facility] [address] [place] [address] Dr. Esthela Stevens Ketones Ql (U) Negative Normal NEGATIVE [facility] Comment on above: Performed By: #### Toñito SANCHEZ UMICRO #### [facility] [address] [place] [address] Dr. Esthela Stevens LEUKOCYTES SMALL Abnormal NEGATIVE [facility] Comment on above: Performed By: #### Toñito SANCHEZ UMICRO #### [facility] [address] [place] [address] Dr. Esthela Stevens Nitrite Ql (U) Negative Normal NEGATIVE [facility] Comment on above: Performed By: #### Toñito SANCHEZ ICRO #### [facility] [address] [place] [address] Dr. Esthela Stevens pH (U) 7.0 [pH] Normal 5-9 [facility] Comment on above: Performed By: #### Toñito SANCHEZ ICRO #### [facility] [address] [place] [address] Dr. Esthela Stevens SPEC GRAVITY 1.015 Normal 1.005-<=1.025 [facility] Comment on above: Performed By: #### Toñito SANCHEZ ICRO #### [facility] [address] [place] [address] Dr. Esthela Stevens UA PROTEIN Negative Normal NEGATIVE/ TRACE [facility] Comment on above: Performed By: #### Toñito SANCHEZ ICRO #### [facility] [address] [place] [address] Dr. Esthela Stevens UR MICRO IND INDICATED Normal [facility] Comment on above: Performed By: #### Toñito SANCHEZ ICRO #### [facility] [address] [place] [address] Dr. Esthela Stevens Urobilinogen Qn (U) 0.2 {Emeka'U}/dL Normal 0.2 - 1. 0 [facility] Comment on above: Performed By: #### Toñito SANCHEZ ICRO #### [facility] [address] [place] [address] Dr. Esthela Stevens LACTATE/LACTIC ACIDon 2021 Lactate [Moles/Vol] 1.3 mmol/L Normal 0.4-1.9 [facility] Comment on above: Performed By: #### P REG #### [facility] [address] [place] [address] Dr. Esthela Stevens LIPASEon 02-03-2022 Lipase [Catalytic activity/Vol] 58.0 U/L Critically low 73.0-393.0 [facility] Comment on above: Performed By: #### L IPA, CMP #### [facility] [address] [place] [address] Dr. Esthela Stevens PREG HCG QUALon 02-03-2022 , QUAL Negative Normal NEGATIVE [facility] Comment on above: Performed By: #### L IVER, LDH, BMP #### [facility] [address] [place] [address] Dr. Esthela Stevens PROF 14(COMP METB)on 022 Albumin [Mass/Vol] 3.8 g/dL Normal 3.4-5.0 [facility] Comment on above: Performed By: #### L IPA, CMP #### [facility] [address] [place] [address] Dr. Esthela Stevens Albumin/Globulin [Mass ratio] 1.0 {ratio} Normal [facility] Comment on above: Performed By: #### L IPA, CMP #### [facility] [address] [place] [address] Dr. Esthela Stevens ALP [Catalytic activity/Vol] 75 U/L Normal 46-116 [facility] Comment on above: Performed By: #### L IPA, CMP #### [facility] [address] [place] [address] Dr. Esthela Stevens ALT [Catalytic activity/Vol] 37 U/L Normal 14-59 [facility] Comment on above: Performed By: #### L IPA, CMP #### [facility] [address] [place] [address] Dr. Esthela Stevens Anion gap [Moles/Vol] 14.0 mmol/L Normal [facility] Comment on above: Performed By: #### L IPA, CMP #### [facility] [address] [place] [address] Dr. Esthela Stevens AST [Catalytic activity/Vol] 14 U/L Critically low 15-37 [facility] Comment on above: Performed By: #### L IPA, CMP #### [facility] [address] [place] [address] Dr. Esthela Stevens Bilirubin [Mass/Vol] 0.2 mg/dL Normal 0.2-1.0 [facility] Comment on above: Performed By: #### L IPA, CMP #### [facility] [address] [place] [address] Dr. Esthela Stevens Calcium [Mass/Vol] 8.9 mg/dL Normal 8.5-10.1 [facility] Comment on above: Performed By: #### L IPA, CMP #### [facility] [address] [place] [address] Dr. Esthela Stevens Chloride [Moles/Vol] 103 mmol/L Normal 98-107 [facility] Comment on above: Performed By: #### L IPA, CMP #### [facility] [address] [place] [address] Dr. Esthela Stevens CO2 [Moles/Vol] 25.2 mmol/L Normal 21.0-32.0 [facility] Comment on above: Performed By: #### L IPA, CMP #### [facility] [address] [place] [address] Dr. Esthela Stevens Creatinine [Mass/Vol] 0.72 mg/dL Normal 0.55-1.02 [facility] Comment on above: Performed By: #### L IPA, CMP #### [facility] [address] [place] [address] Dr. Esthela Stevens EGFR-AF GUINEAN >60 Normal >=60 [facility] Comment on above: Performed By: #### L IPA, CMP #### [facility] [address] [place] [address] Dr. Esthela Stevens EGFR-NON AF GUINEAN >60 Normal >=60 [facility] Comment on above: Performed By: #### L IPA, CMP #### [facility] [address] [place] [address] Dr. Esthela Stevens Globulin (S) [Mass/Vol] 3.7 g/dL Normal [facility] Comment on above: Performed By: #### L IPA, CMP #### [facility] [address] [place] [address] Dr. Esthela Stevens Glucose [Mass/Vol] 101 mg/dL Normal 74-106 [facility] Comment on above: Performed By: #### L IPA, CMP #### [facility] [address] [place] [address] Dr. Esthela Stevens Potassium [Moles/Vol] 4.2 mmol/L Normal 3.5-5.1 [facility] Comment on above: Performed By: #### L IPA, CMP #### [facility] [address] [place] [address] Dr. Esthela Stevens Protein [Mass/Vol] 7.5 g/dL Normal 6.4-8.2 [facility] Comment on above: Performed By: #### L IPA, CMP #### [facility] [address] [place] [address] Dr. Esthela Stevens Sodium [Moles/Vol] 138 mmol/L Normal 136-145 [facility] Comment on above: Performed By: #### L IPA, CMP #### [facility] [address] [place] [address] Dr. Esthela Stevens Urea nitrogen [Mass/Vol] 11.0 mg/dL Normal 7.0-18.0 [facility] Comment on above: Performed By: #### L IPA, CMP #### [facility] [address] [place] [address] Dr. Esthela Stevens Urea nitrogen/Creatinine [Mass ratio] 15.3 mg/mg Normal [facility] Comment on above: Performed By: #### L IPA, CMP #### [facility] [address] [place] [address] Dr. Esthela Stevens URINE MICROSCOPIC ONLYon BACTERIA NONE SEEN Normal NONE SEEN [facility] Comment on above: Performed By: #### E ERUM SANCHEZRO #### [facility] [address] [place] [address] Dr. Esthela Stevens Bacteria identified Cx Nom (U) NOT INDICATED Normal [facility] Comment on above: Performed By: #### E RUR, UMICRO #### [facility] [address] [place] [address] Dr. Esthela Stevens CAST NONE SEEN Normal NONE SEEN [facility] Comment on above: Performed By: #### E RUR, UMICRO #### [facility] [address] [place] [address] Dr. Esthela Stevens Crystals LM Nom (Urine sed) NONE SEEN Normal NONE SEEN [facility] Comment on above: Performed By: #### E RUR, UMICRO #### [facility] [address] [place] [address] Dr. Esthela Stevens Epithelial cells LM Ql (Urine sed) FEW Abnormal NONE SEEN /RARE [facility] Comment on above: Performed By: #### E RUR, UMICRO #### [facility] [address] [place] [address] Dr. Esthela Stevens MUCOUS NONE SEEN Normal NONE SEEN [facility] Comment on above: Performed By: #### E RUR, UMICRO #### [facility] [address] [place] [address] Dr. Esthela Stevens RBC 0-2 Normal 0-2 [facility] Comment on above: Performed By: #### E YELENAR, UMICRO #### [facility] [address] [place] [address] Dr. Esthela Stevens WBC 2-5 Abnormal NONE SEEN [facility] Comment on above: Performed By: #### E RUR, UMICRO #### [facility] [address] [place] [address] Dr. Esthela Stevens Test, Urineon Beta HCG ( test) Ql (U) Negative [employer] Other Urinalysis - AUTOMATEDon Appearance (U) clear [employer] Other Bilirubin Ql (U) Negative [employer] Other Color (U) yellow [employer] Other Glucose Ql (U) Negative [employer] Other Hemoglobin Ql (U) Negative [employer] [address] [employer] Other Ketones Ql (U) 15 [employer] Other Leukocyte esterase Test strip Ql (U) Negative [employer] Other Nitrite Ql (U) Negative [facility] Other pH (U) 7.0 [pH] [employer] Other Protein Ql (U) Negative [facility] [facility] Other Specific gravity (U) [Rel density] 1.020 [employer] Other Urobilinogen (U) [Mass/Vol] 0.2 mg/dL [facility] Other Urinalysis - AUTOMATED [employer] Other Coding Summary.on 02-18-2021 Coding Summary. CD:[id number] Gh0bWw+PGhlYWQ+PE1FV EXdY84xcFSkyM3QP6vUD X7QTIRDZCXEPT4YPM7pq CL8ZTmeO7BsqfCz YodfrVSkJK83QUb4AJH8 sBfaJWpggQ9ylHUrY2h9 AiSuRD79qB19QFniQKZq WgX7VkPkmaaouRSg W4nlTlNzsSSsKex+PHRh YmxlIHdpZHRoPScxMDAl YsYnzEbjJV0mJi5tLTTn LWNvbGxhcHNlOiBj e1lpCWGjRLbyYV6plSwx O0SlhYT5ZSGar1x0Vo71 dHI+LDOzKDU1nNvrUSpj f069LsIlu1zeNDH4 hMAuKEpmNSN2X53xu7H9 JALgHPWhHGM5jHZ3tM8k eIpgcvhlE8JkcZIhYjN1 BRO2gBJqvS1ixOxq vcuduH6pFrr+O55UYV7N BUDNYW3KSbb9W1NeGnpz dHI+KH09OXGcSA02pDVj bWVuu6wsjWk3ByVq GEWfVXH3qEenMVoxb4He CQDtH70zeFWip1Y1UJAd bOiavPPwRwYmsNC5aQ4o YCbemlinv1lkdfho Dfges6tovm10jW02A04i YQzgTLGdWFP3DKGfPKVo cRblkj5aqB0yMl7+IDxj c3yyj0kxoJh3CoAg AQWrqdTgvSeyGDJ6r2Gy Ml66P7NyxTxtn2EwMxn5 cv43wTCaz5E2eKR8AMvc XGRpdG1eBNzlQyR7 BSFvNcVylI33cFTzTSic Yb0sxJlzvWajDT3yWWPl baatQSUtdP0fYLMvqMSx eJbnWG4oHMTawjhx i813HhYxOML0OEAjmFZi L8UquQ0pAfFxWSMbLBZk N6McqTEyUIaoI312RTxv SbG9OFTyvqWxU3Ct HPMtzFzhXrX9r6R1Ao5T m9GhdcqtOTV5UIpfCCO8 ZyEgDwOrThS0F3QsJbj8 WDEbiFegOM1oY8Py NKSuhigntybvoOB7SABj CVHizU08tIEtVPdmUx1s a8D8u504BQStDERarG51 Kq4jhRefQRNsbEAT sF5tcuzkw5sethoaOzUf NUNsCFq8IKb8ULHdyPms FhZmDMH8IoC7YXS7dWBn xV8jsBsaqmkiiL3u Oyc+Z77kuQ9eDWP3HOG2 lheqBZSfuaZjHE30JP15 U3PmUvaalXZptIK+PGRp kdElyYnoPQ2pRaQo a6vhf3NwPMevJ5BnXHTs UPpcDur6PEApLTY1wAN5 sM3zCKNcYLlws5H7rGL2 U5SwbvWsvf0ge7rx IJUpYXumC60fpBInd8U6 QYDnnJT1QZUfuFaqXcPq wS26Unw+VQGxcSkyl3Vb Ycuqd6szv0ycdHg5 IjMwJSIgdmFsaWduPSJ0 p8OpYr65S91lGKipASTz OHPjIEScWPRepGstqj4x qY1eNt0+PGNvbCB3 zFK8tS9vRYNvEsA5RKra X903NtCnlQRlAaxwj3hv y5damZi4UyYgFAUtghId oAryTNQ0l1MwGy07 E80oFSkzHEHfKEEcOSBn ERKdwSspcv8fjV8jUl9+ PP1zn3zyyu22dW19rOU+ HBHaAME1nLzrYXgy ZXCqkM1cPWsuOeD5GPZi WzRetU98zRNiFRhjUx5h nFtrdRtoBA3aGRTtnfav o116SeQdu8uqRZPz hHOiZEmqRWY7H49lv3I2 JTCuRKAaPXG1qDI7sV6h bGlnbjogbGVmdDsgdmVy sMtjLSflFEbrB499 IHRvcDsnPlBhdGllbnQg YbWuXCb8P3JhHjs6KYMj kIpyPP3exZHoKEgmSz4x dOxieUexWL8fKOCx oloxb996VyCmk2nkZXSq qYAvLCehBII9T18yl0M2 MRUmILKgGDA9cGE2cP4y bGlnbjogbGVmdDsg jpYnvThsEIimIUjnU540 IHRvcDsnPkJpcnRoIERh vSX0KG77SK60vDWri2T7 fOS4B0GxQUNablck lnlccAL9LLGjBSElhI99 Mm6jkKhzXl8hFOTlQCM0 YQSxiNNqR9SynK6dBxOb AAWnJWOkM0QtiVLe ENykJ328YFtxRlE3UWUp beNuQ9DxFPLatLuwOiX1 v6H1Vx4IA5V6RB51VF02 rIOzg1K0gVM2P7Ks OOTppserefpkvJO5LCPk UJEfmS61Xx9llGloEi9e DCXvHMU4SLHmwREmL5Pc xJ0cJfYhMFVbUXQg I8OzxYXrADctH781TKfh XmL0HPLtqbPlP8MtNOCm pQctQnM2n2P3Wq5FQXo5 GE39SM22hUDuq2Q7 tPO3Q6DfANUbothsmkhb nZX1OZJgLAOkjS53Hm3w gRjgUg5yULWsGYK0LIDt tMEdW3NgzE0kHjQc GYIfQORgH4AdzBSwZWkl P472YDnrBeX1XWEenmMi Z0EbSPCulEjnEvJ6o9Z5 Om7SGJZiTJ85BVR0 tMB8GI26SO79U4BgWhvh dGFibGU+PHRhYmxlIHdp ZHRoPScxMDAlJyBzdHls JL0cMs6gVTMcKQSg fCugrPLlNrWzy9ufSRYo MSrnPM7vwPheJ7JdmTZ2 FWSir7y0Wm76K28iI6Wd dXA+WSOnwSM0mJZ1 hV0fOiPcEhQ6WWjpJ575 IsVpjKQmEowhg4hsp4qm gBm7TeB9SFDdezLtbLzz BOG4u3MhQk32H83q IHdpZHRoPSIxNSUiIHZh iWisps6vbA1aAr1+PGNv xKM7cDR0oL3dWdPiTdM4 JFrpJ075OtRrwXZd Gvbzi5vuo2msoHs5YlSp CXPnojRgcCgvOPM7d4Cj Jn39W8NjoZxli3AxJox2 jd60hKHno7Q7hKH0 M9PhEJStvqowjENbtYfx ZR3eNRBzadnoSVKwlM8o CTWpU4v0EtRwYsY5GPtr O1ZqqlP5QGFwvLEu EJeuLEB9E10ii3S6YIJq BONeMRK3lJF7wN6iwFcn bjogbGVmdDsgdmVydGlj EUiwDNqgM023OKYx oHgrCSYjvK0sINXohIZb nIpyVT6xDCDlddryAadI SWaMWqakI4WZIWPPVJn3 K8UaIgy6SOHhhXel DC1hiQZcTGslDv6puJfb oDswZE0nSKGeghxjLRVo lI7rQHEhdUQwqUvqQV1m WWRywazep501PiHd SGK1AITxbNRwY4FonC5o JkTtSQJsYDJkW3GchTDi CYaoE618UBeeEkU9OCOl rcHaE6JdYHXqeAty AbD7e8S4Ti6mZX2eYH5q JZk8NU92LD65oUOel9A8 mGF8U0NgLIRglztykdcz hAU2OAUrPGYsmF60 gBBrMKvvJt1ph2G7c488 CQLaYVUilG28Mf3hvKep VFMxxRGWrV8zontob6cv cjogIzAwMDAwMDt0 UBs2BMRluWakMpCjSFB5 KsG6KKB5sHGubU2rsTht pnatmL2dYue+MjMgWWVh hzM1C3MpCte6ACHe zHrvFV4gsJYpSHyqLs9s dTtkkFaoCZ1wAUKnyskv GTOkrY0iVFQrhOCcdVlm SI7aDMWlezzuw624 TdJdMGE7MQGxdYHiZ3Kd qC1mWaNnYBEfSYEcU7Hd gLHjOQhaS069MDzrMaW2 WEFpjhTcQ0BnCRHh yUcdZtK3x0M3Ak9OXL7z qWJ3V7VgNmy2KJZfcMnk XS1fwKAoBSghGh1xmUdk fMgkAK7rPJSriqbp ECGhjK4gDMXjhUVsqGyv WA3xEFLwqippt901YrBz RLV5IYHxmTZrW4DceE0u JqVuWDNpTSCtI6Fc rEBiIAyyW522KMweUlP0 MRSadnWzW3SaTUUznKow FfO0u8O0Gl4FzNTgF5Mh H5l1P4YeTsptaNY+ NN14AVAoSD47vPAovVLl z7nqnOt1BtHqAEZtVFU6 vPxlIFxmm2VcJXOxC46h iLAxk7Q1BALowArv bDCsKuRflJC2xJ7rTPmt ygnao4thkmkdAsrel4ga vz54dF81K46tHNapYYXh PSIzMCUiIHZhbGln mh7gdF0uNs9+PGNvbCB3 wEW5wZ9qKbEfToF2VKgt J636TgEemSTeBktqj1vq u9dvoWb3ZaBaMYVm teYxfSvzUYH7c7FcFw16 H45tPCeeFSUbPYMpQWKv QSJsmMdzov4ceT8vDz1+ MB0kq2dgtx18kV92 dHI+VHKoXFZ8hAwoBMif XIRgkA9hOMkhGoQ7WGHl GwFmsL50vFPiQEdkPs8h lTqipMwpAD9xPKCl zzyjr815EiNwi9frZIVl lKDtGUtiPJY1C66ym0Z7 EYOiJZQuCNQ0pOZ0fE9e bGlnbjogbGVmdDsg odHzbDpoPYhyHKbhB067 MZGnmMibUsHriJWvJ2os gfMJCR3oVdmwjZM+PHRk WSV2hPcaMAysKVDf iY2vRTMyZ3s7IoRyJwQ9 LHkoH3EleaY6SDBtrQNm PZDplNEMpJ8fuaqsi2eu cjogIzAwMDAwMDt0 GOu2FUZkhBmtAwAbQWG1 RcK9HIO7uYJneU7xvFhe ebbvqO0wRei+RklOOjwv dGQ+JLVpRMQ8mEwg AOpfHXEthY1pIPCtS6t6 BdBsHvJ2DPqlD1YajpM7 IALilCLvTQQukFACkR5h lfyvl7czblqlJfTs YYJnRFv6IFd4HJPocKgz JiLaLUW9XiB2CEW4cHLm gD5ilDauditkoN0yXdh+ TVJOOjwvdGQ+PHRk WKD0bCqzLEpoBSOfdR5c GQWzF0q7WeJhQhB9BIxw L4NakqM2UJBsvZUeGAGx cJBVqE3ayrjhz0yr mvacCqPgOSMqARk5BQw2 UONmhUjhSnEzWZQ3CuB8 PLV4rHLliR6lzZuiaqas wO2oBts+UUM9XVU0 PZ44QV37C3LqMmxgcIUx bGU+PHRhYmxlIHdpZHRo GPueZJWqZdGctQodXH5p Pa8hEMUcUJBwzOsy cHNl (more content not included)... [facility] Consent for Treatmenton Consent for Treatment [id number] #1.00CD:127 [facility] Discharge Instructionson Discharge Instructions [id number] 3#1.00CD:127 [facility] ED Clinical Summaryon 2020 ED Clinical Summary [address] [address] ED Clinical Summary Person Information Name: ZAINAB MCCLURE [facility]anna/[facility] Age: 25 Years : 1995 Sex: Female Language: Cambodian PCP: ERIN SAMS CNP Marital Status: Single [...] 02/17/2021 11:52:53 02/17/2021 11:52:53 02/17/2021 11:52:53 ADDRESS: [address] [place] [id number] PHYS DOC NOTES: MEDICAL INFORMATION: Prescriptions Given: New Medications Printed Prescriptions lorazepam (Ativan 1 mg Tab) 1 Tablets By Mouth every 8 hours for 2 Days. Take one by mouth every eight hours as needed. Refills: 0. PATIENT EDUCATION INFORMATION: Instructions: Suicidal Feelings: How to Help Yourself; Managing Anxiety, Adult Follow up: With: Address: When: [facility] In 1 day 02/18/2021 With: Address: When: ERIN SAMS [address] [place] [address] [phone] Business (1) In 3 days DIAGNOSIS: Anxiety; Suicidal ideation [facility] ED Note-Physicianon 02-18-20 ED Note-Physician Basic [...] Oral, q8hr Follow-up With When Contact Information [facility] In 1 day 02/18/2021 EDT Additional Instructions: ERIN SAMS In 3 days [address] [place] [address] [phone] Business (1) Additional Instructions: Patient Education Suicidal Feelings: How to Help Yourself Managing Anxiety, Adult Problem List/Past Medical History Ongoing No qualifying data Historical No qualifying data Medications Inpatient No active inpatient medications Home No active home medications Allergies No Known Medication Allergies Lab Results No qualifying data available. Diagnostic Results No qualifying data available. [facility] Comment on above: Result Comment: Clarence trent Signed By: Vinicius Childers DO\.br\Date and Time [...] services (911 in the [place] ? The [facility] services helpline (211 in the [place] ? Go to your nearest emergency department. ? Call a suicide hotline to speak with a trained counselor. The following suicide hotlines are available in the [place]: ? 9-878-455-TALK ( ). ? 1-678-CEZXOAI ( ). ? . This is a hotline for Sinhala speakers. ? . This is a hotline for TTY users. ? 9-487-4-U-RAMILA ( ). This is a hotline for lesbian, escobar, bisexual, transgender, or questioning youth. ? For a list of hotlines in [place], visit www.suicide.org/hotl zeferino/international/c jqonr-xhfxotb-kgojsj es.html ? Contact a crisis center or [...] even if you do not feel sociable. Atpc-kd-zwfb conversation is best to help them understand [...] can help you feel better. ? Take kxvp-bid-mjyahfx and prescription medicines only as told by [...] Lifeline: www.suicidepreventio nlifeline.org ? Hopeline: www.hopeline.com ? [place] Foundation for Suicide Prevention: www.afsp.org ? The Ramila Project (for lesbian, escobar, bisexual, transgender, or questioning youth): www.thetrevorproject .org Contact a health care provider if: ? You feel as though you are a burden to others. ? You feel agitated, angry, vengeful, or have extreme mood swings. ? You have withdrawn from family and friends. Get (more content not included)... [facility] ED Patient Summaryon 021 ED Patient Summary [place] [id number] Patient Discharge Instructions Person Information Name: ZAINAB MCCLURE Age: 25 Years Arrival Date: 02/17/2021 09:42:11 Discharge Diagnosis: Anxiety; Suicidal ideation Primary Care Physician: ERIN SAMS CNP Provider Information Primary Provider: Vinicius Childers DO Advanced Access Rn:None The exam and treatment you received in the Emergency Department were for an urgent problem and are not intended as complete care. It is important that you follow up with a doctor, nurse practitioner, or physician?s regulatory assistant for ongoing care. If your symptoms become worse or you do not improve as expected and you are unable to reach your usual health care provider, you should return to the Emergency Department. We are available 24 hours a day. ZAINAB MCCLURE has been given the following list of patient education materials, prescriptions and follow-up instructions: Follow-up Instructions: With: Address: When: [facility] In 1 day 02/18/2021 With: Address: When: ERIN SAMS [address] [place] [address] [phone] Business (1) In 3 days In the [...] opioids can be used to help relieve bidusvdg-jz-oqqxoe pain and are often prescribed following a [...] care professio (more content not included)... [facility] Valuables Checkliston 2020 Valuables Checklist [id number] 6#1.00CD:127 [facility] Vital Signs Date Time Vital Sign Value Performing Clinician Facility 11-26-2023 09:32-0400 Body height 154.9 cm Dolores OLEARY Work Phone: [facility] 11-26-2023 09:32-0400 Body mass index (BMI) [Ratio] 30.61 kg/m2 Dolores Johnson APRN-[employer]IRCRAFT STRUCTURAL DESIGN ENGINEER Work Phone: [facility] 11-26-2023 09:32-0400 Body weight 73.48 kg Dolores Johnson APRN-TASH Work Phone: [facility] 11-26-2023 09:32-0400 Diastolic blood pressure 76 mm[Hg] Dolores Johnson TICKET SORTER-AIRCRAFT STRUCTURAL DESIGN ENGINEER Work Phone: [facility] 11-26-2023 09:32-0400 Heart rate 65 /min oDlores Johnson TICKET SORTER-AIRCRAFT STRUCTURAL DESIGN ENGINEER Work Phone: [facility] 11-26-2023 09:32-0400 Respiratory rate 16 /min Dolores Johnson TICKET SORTER[employer]AIRCRAFT STRUCTURAL DESIGN ENGINEER Work Phone: [facility] 11-26-2023 09:32-0400 SaO2% (BldA) [Mass fraction] 98 % Dolores Johnson TICKET SORTER-AIRCRAFT STRUCTURAL DESIGN ENGINEER Work Phone: [facility] 11-26-2023 09:32-0400 Systolic blood pressure 110 mm[Hg] Dolores Johnson TICKET SORTER-AIRCRAFT STRUCTURAL DESIGN ENGINEER Work Phone: [facility] 08-24-2023 10:09-0500 Body mass index (BMI) [Ratio] 32.44 kg/m2 Ron Alden DO Work Phone: [facility] 08-24-2023 10:09-0500 Body weight 83.06 kg Ron Alden DO Work Phone: [facility] 08-24-2023 10:09-0500 Diastolic blood pressure 68 mm[Hg] Ron Alden DO Work Phone: [facility] 08-24-2023 10:09-0500 Systolic blood pressure 110 mm[Hg] Ron Alden DO Work Phone: [facility] 03-11-2023 09:53-0400 Body height 154.9 cm Farshad Vigil TICKET SORTER[employer]CRAFT STRUCTURAL DESIGN ENGINEER Work Phone: [facility] 12-10-2022 12:07-0400 Body height 155.2 cm Suman Baker MD, PhD Work Phone: [facility] Comment on above: without shoes 12-10-2022 12:07-0400 Body mass index (BMI) [Ratio] 30.64 kg/m2 Suman Baker MD, PhD Work Phone: [facility] 12-10-2022 12:07-0400 Body temperature 97.81 [degF] Suman Baker MD, PhD Work Phone: [facility] 12-10-2022 12:07-0400 Body weight 73.8 kg Suman Baker MD, PhD Work Phone: [facility] Comment on above: without shoes 12-10-2022 12:07-0400 Diastolic blood pressure 72 mm[Hg] Suman Baker MD, PhD Work Phone: [facility] 12-10-2022 12:07-0400 Heart rate 77 /min Suman Baker MD, PhD Work Phone: [facility] 12-10-2022 12:07-0400 Respiratory rate 14 /min Suman Baker MD, PhD Work Phone: [facility] 12-10-2022 12:07-0400 SaO2% (BldA) [Mass fraction] 99 % Suman Baker MD, PhD Work Phone: [facility] Comment on above: room air 12-10-2022 12:07-0400 Systolic blood pressure 118 mm[Hg] Suman Baker MD, PhD Work Phone: [facility] 10-22-2022 13:57-0400 Body height 154.9 cm Rebekah Suero MD Work Phone: [facility] 10-22-2022 13:57-0400 Body mass index (BMI) [Ratio] 30.33 kg/m2 Rebekah Suero MD Work Phone: [facility] 10-22-2022 13:57-0400 Body temperature 97.59 [degF] Rebekah Suero MD Work Phone: [facility] 10-22-2022 13:57-0400 Body weight 72.8 kg Rebekah Suero MD Work Phone: [facility] 10-22-2022 13:57-0400 Diastolic blood pressure 62 mm[Hg] Rebekah Suero MD Work Phone: [facility] 10-22-2022 13:57-0400 Heart rate 62 /min Rebekah Suero MD Work Phone: [facility] 10-22-2022 13:57-0400 Respiratory rate 20 /min Rebekah Suero MD Work Phone: [facility] 10-22-2022 13:57-0400 SaO2% (BldA) [Mass fraction] 99 % Rebekah Suero MD Work Phone: [facility] 10-22-2022 13:57-0400 Systolic blood pressure 119 mm[Hg] Rebekah uSero MD Work Phone: [facility] 10-22-2022 10:19-0400 Body height 157.5 cm Yudelka Moralez TICKET SORTER-A[employer]CRAFT STRUCTURAL DESIGN ENGINEER Work Phone: [facility] 10-22-2022 10:19-0400 Body mass index (BMI) [Ratio] 28.66 kg/m2 Yudelka Moralez TICKET S[employer]TER-[employer]FT STRUCTURAL DESIGN ENGINEER Work Phone: [facility] 10-22-2022 10:19-0400 Body weight 71.1 kg Yudelka Moralez TICKET SORTER-A[employer]FT STRUCTURAL DESIGN ENGINEER Work Phone: [facility] 10-22-2022 10:19-0400 Diastolic blood pressure 76 mm[Hg] Yudelka Moralez TICKET SORTER-A[employer]CRAFT STRUCTURAL DESIGN ENGINEER Work Phone: [facility] 10-22-2022 10:19-0400 Systolic blood pressure 126 mm[Hg] Yudelka Moralez TICKET SORTER-A[employer]CRAFT STRUCTURAL DESIGN ENGINEER Work Phone: [facility] 10-22-2022 07:38-0400 Body height 157.5 cm Yudelka Moralez TICKET S[employer]TER[employer]FT STRUCTURAL DESIGN ENGINEER Work Phone: [facility] 10-22-2022 07:38-0400 Diastolic blood pressure 76 mm[Hg] Yudelka Moralez TICKET SORTER-A[employer]CRAFT STRUCTURAL DESIGN ENGINEER Work Phone: [facility] 10-22-2022 07:38-0400 Heart rate 73 /min Yudelka Moralez TICKET SORTER[employer]FT STRUCTURAL DESIGN ENGINEER Work Phone: [facility] 10-22-2022 07:38-0400 Systolic blood pressure 126 mm[Hg] Yudelka Moralez TICKET SORTER-AIRCRAFT STRUCTURAL DESIGN ENGINEER Work Phone: [facility] 10-07-2022 11:05-0400 Body height 157.5 cm Yudelka Moralez TICKET SORTER-AIRCRAFT STRUCTURAL DESIGN ENGINEER Work Phone: [phone] [place] [address] 10-07-2022 11:05-0400 Body mass index (BMI) [Ratio] 28.66 kg/m2 Yudelka Moralez TICKET SORTER-A[employer]CRAFT STRUCTURAL DESIGN ENGINEER Work Phone: [phone] [place] [address] 10-07-2022 11:05-0400 Body temperature 98.2 [degF] Yudelka Moralez TICKET SORTER-A[employer]CRAFT STRUCTURAL DESIGN ENGINEER Work Phone: [facility] 10-07-2022 11:05-0400 Body weight 71.08 kg Yudelka Moralez TICKET SORTER-A[employer]CRAFT STRUCTURAL DESIGN ENGINEER Work Phone: [facility] 10-07-2022 11:05-0400 Diastolic blood pressure 74 mm[Hg] Yudelka Moralez TICKET SORTER-AIRCRAFT STRUCTURAL DESIGN ENGINEER Work Phone: [facility] 10-07-2022 11:05-0400 Heart rate 81 /min Yudelka Moralez TICKET S[employer] STRUCTURAL DESIGN ENGINEER Work Phone: [facility] 10-07-2022 11:05-0400 Respiratory rate 16 /min Yudelka Moralez TICKET SORTER-A[employer]CRAFT STRUCTURAL DESIGN ENGINEER Work Phone: [facility] 10-07-2022 11:05-0400 SaO2% (BldA) [Mass fraction] 99 % Yudelka Moralez TICKET S[employer]TER[employer]CRAFT STRUCTURAL DESIGN ENGINEER Work Phone: [facility] 10-07-2022 11:05-0400 Systolic blood pressure 120 mm[Hg] Yudelka Moralez TICKET SORTER-A[employer]CRAFT STRUCTURAL DESIGN ENGINEER Work Phone: [facility] 08-19-2022 15:43-0500 Diastolic blood pressure 88 mm[Hg] Andreas Ortega MD, MPH Work Phone: [facility] 08-19-2022 15:43-0500 Systolic blood pressure 117 mm[Hg] Andreas Ortega MD, MPH Work Phone: [facility] 07-08-2022 07:50-0500 Body height 157.5 cm Andreas Ortega MD, MPH Work Phone: [facility] 07-08-2022 07:50-0500 Body mass index (BMI) [Ratio] 28.73 kg/m2 Andreas Ortega MD, MPH Work Phone: [facility] 07-08-2022 07:50-0500 Body temperature 98.01 [degF] Andreas Ortega MD, MPH Work Phone: [facility] 07-08-2022 07:50-0500 Body weight 71.26 kg Andreas Ortega MD, MPH Work Phone: [facility] 07-08-2022 07:50-0500 Diastolic blood pressure 77 mm[Hg] Andreas Ortega MD, MPH Work Phone: [facility] 07-08-2022 07:50-0500 Heart rate 73 /min Andreas Ortega MD, MPH Work Phone: [facility] 07-08-2022 07:50-0500 Respiratory rate 16 /min Andreas Ortega MD, MPH Work Phone: [facility] 07-08-2022 07:50-0500 SaO2% (BldA) [Mass fraction] 98 % Andreas Ortega MD, MPH Work Phone: [facility] 07-08-2022 07:50-0500 Systolic blood pressure 121 mm[Hg] Andreas Ortega MD, MPH Work Phone: [facility] 06-09-2022 13:10-0500 Body mass index (BMI) [Ratio] 29.3 kg/m2 [facility] Work Phone: [facility] 06-09-2022 13:10-0500 Body temperature 98.6 [degF] [facility] Work Phone: [facility] 06-09-2022 13:10-0500 Body weight 72.67 kg [facility] Work Phone: [facility] 06-09-2022 13:10-0500 Diastolic blood pressure 60 mm[Hg] [facility] Work Phone: [facility] 06-09-2022 13:10-0500 Heart rate 80 /min [facility] Work Phone: [facility] 06-09-2022 13:10-0500 Respiratory rate 16 /min [facility] Work Phone: [facility] 06-09-2022 13:10-0500 SaO2% (BldA) [Mass fraction] 98 % [facility] Work Phone: [facility] 06-09-2022 13:10-0500 Systolic blood pressure 110 mm[Hg] [facility]IR[facility] STRU[facility]URAL DESIGN ENGINE[facility] Work Phone: [facility] 05-29-2022 07:32-0500 Body temperature 98.01 [degF] Suman Baker MD, PhD Work Phone: [facility] 05-29-2022 07:32-0500 Diastolic blood pressure 64 mm[Hg] Suman Baker MD, PhD Work Phone: [facility] 05-29-2022 07:32-0500 Heart rate 77 /min Suman Baker MD, PhD Work Phone: [facility] 05-29-2022 07:32-0500 Respiratory rate 16 /min Suman Baker MD, PhD Work Phone: [facility] 05-29-2022 07:32-0500 SaO2% (BldA) [Mass fraction] 99 % Suman Baker MD, PhD Work Phone: [facility] 05-29-2022 07:32-0500 Systolic blood pressure 100 mm[Hg] Suman Baker MD, PhD Work Phone: [facility] 05-22-2022 15:50-0400 Body height 157.5 cm Suman Baker MD, PhD Work Phone: [phone] [address] 05-22-2022 15:50-0400 Body mass index (BMI) [Ratio] 30.73 kg/m2 Suman Baker MD, PhD Work Phone: [facility] 05-22-2022 15:50-0400 Body weight 76.2 kg Suman Baker MD, PhD Work Phone: [facility] 03-31-2022 12:02-0400 Diastolic blood pressure 70 mm[Hg] Carlos Gomes [employer] DES[employer] ENGINEER Work Phone: [phone] [address] 03-31-2022 12:02-0400 Systolic blood pressure 124 mm[Hg] Carlos [place] [employer] DESIGN ENGINEER Work Phone: [phone] [address] 03-31-2022 11:53-0400 Body height 157.5 cm Carlos Gomes [employer] DESIGN ENGINEER Work Phone: [facility] 03-19-2022 15:37-0400 Body height 158.3 cm Suman Baker MD, PhD Work Phone: [facility] 03-19-2022 15:37-0400 Body mass index (BMI) [Ratio] 30.63 kg/m2 Suman Baker MD, PhD Work Phone: [facility] 03-19-2022 15:37-0400 Body temperature 97.5 [degF] Suman Baker MD, PhD Work Phone: [facility] 03-19-2022 15:37-0400 Body weight 76.75 kg Suman Baker MD, PhD Work Phone: [facility] 03-19-2022 15:37-0400 Diastolic blood pressure 84 mm[Hg] Suman Baker MD, PhD Work Phone: [facility] 03-19-2022 15:37-0400 Heart rate 90 /min Suman Baker MD, PhD Work Phone: [facility] 03-19-2022 15:37-0400 Respiratory rate 16 /min Suman Baker MD, PhD Work Phone: [facility] 03-19-2022 15:37-0400 SaO2% (BldA) [Mass fraction] 98 % Suman Baker MD, PhD Work Phone: [facility] 03-19-2022 15:37-0400 Systolic blood pressure 128 mm[Hg] Suman Baker MD, PhD Work Phone: [facility] 12-22-2021 18:05-0400 Body height 152.4 cm Ava Tamika Other [employer] Other 12-22-2021 18:05-0400 Body mass index (BMI) [Ratio] 30.62 kg/m2 Ava Tamika Other [employer] Other 12-22-2021 18:05-0400 Body temperature 99 [degF] Ava Tamika Other [employer] Other 12-22-2021 18:05-0400 Body weight 71.12 kg Ava Lundberg Other [employer] Other 12-22-2021 18:05-0400 Diastolic blood pressure 89 mm[Hg] Ava Lundberg Other [employer] Other 12-22-2021 18:05-0400 Respiratory rate 16 /min Ava Lundberg Other [employer] Other 12-22-2021 18:05-0400 SaO2% (BldA) [Mass fraction] 99 % Ava Lundberg Other [employer] Other 12-22-2021 18:05-0400 Systolic blood pressure 129 mm[Hg] Ava Lundberg Other [employer] Other Encounters Encounter Date Encounter Type Care Provider Facility Start: 11-26-2023 ambulatory YUDELKA MORALEZ Facility:[facility] Start: 11-26-2023 ambulatory YUDELKA MORALEZ Facility:[facility] Start: 11-26-2023 End: 11-26-2023 Office outpatient new 45 minutes Dolores Johnson [employer] DES[employer] ENGINEER Work Phone: [facility] [place] Comment on above: Elevated liver enzym es (Primary Dx) Start: 11-11-2023 End: 11-11-2023 ambulatory LIZBET CAST Not Available Start: 11-08-2023 ambulatory YUDELKA MORALEZ Facility:[facility] Start: 11-06-2023 ambulatory ANDREAS ORTEGA Facility: [facility] Start: 11-06-2023 End: 11-06-2023 Subsequent hospital visit by physician Andreas Ortega MD, MPH Work Phone: Imaging [facility] Comment on above: Arrived Start: 10-04-2023 End: 10-04-2023 ambulatory LIZBET SERENE Not Available Start: 09-25-2023 End: 09-25-2023 ambulatory Ron Alden Facility:[facility] Start: 09-20-2023 End: 09-20-2023 ambulatory RON [...] RON ALDEN Not Available Start: 04-06-[address] [facility] Facility: [facility] Start: 03-17-2023 ambulatory [facility] Facility: [facility] Start: 03-11-2023 ambulatory SELF SELF Facility:[facility] Start: 03-11-2023 End: 03-11-2023 Clinical Support Encounter Suman Baker MD, PhD Work Phone: Clinical Lab [facility] Kang 1 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 Start: 03-11-2023 ambulatory ANDREAS JORDAN Facility: [facility] Start: 03-11-2023 End: 03-11-2023 Subsequent hospital visit by physician Farshad Vigil [employer] DESIGN ENGINEER Work Phone: [facility] Comment on above: Arrived Start: 01-04-2023 ambulatory ERIN SAMS Facility: [facility] Start: 12-16-2022 ambulatory ANDREAS JORDAN Facility: [facility] Start: 12-10-2022 End: 12-10-2022 Office outpatient visit 15 minutes Suman Baker MD, PhD Work Phone: Division of Surgical Oncology 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) Start: 12-10-2022 ambulatory ERIN SAMS Facility: [facility] Start: 11-30-2022 End: 11-30-2022 ambulatory ERIN SAMS Facility:[facility] Start: 10-22-2022 End: 10-22-2022 Office outpatient new 60 minutes Rebekah Suero MD Work Phone: [facility] Comment on above: Fibromyalgia muscle pain (Primary Dx) Start: 10-22-2022 End: 10-22-2022 Subsequent hospital visit by physician Yudelka Moralez [employer] Work Phone: [facility] [place] Start: 10-22-2022 End: 10-22-2022 Subsequent hospital visit by physician Yudelka Moralez [employer] Work Phone: [facility] [place] Comment on above: Arrived Start: 10-07-2022 End: 10-07-2022 Office outpatient visit 25 minutes Yudelka Moralez [employer] Work Phone: Division of Medical Oncology Comment [...] medical examination without abnormal findings ERIN SAMS [facility] Start: 08-31-2022 End: 09-01-2022 ambulatory [...] Subsequent hospital visit by physician Yudelka Moralez [employer]URAL DESIGN ENGINEER Work Phone: [facility] Comment on above: Arrived Start: 08-12-2022 [...] related to original px Carlos Mendoza Eliseo [employer]URAL DESIGN ENGINEER Work Phone: Division of Surgical Oncology Comment [...] laboratory examination DR TIMMY HALL . [facility] Start: 04-04-2022 End: 04-05-2022 ambulatory ERIN SAMS Facility:[facility] Start: 04-04-2022 End: 04-05-2022 Encounter for preprocedural laboratory examination ERIN SAMS Facility: Start: 03-31-2022 End: 03-31-2022 Subsequent hospital visit by physician Carlos Gomes [employer] DESIGN ENGINEER Work Phone: [facility] [place] Comment on above: Arrived Start: 03-19-2022 End: [...] 12-22-2021 End: 12-22-2021 ambulatory Ava Lundberg Other [employer] Other Start: 12-22-2021 Office outpatient vi sit 15 minutes Ava Lundberg [facility] Procedures Date Procedure Procedure Detail Performing Clinician Start: 03-11-2023 Mri abdomen w/o cont rast material Yudelka Moralez [employer] DESIGN ENGINEER Work Phone: Start: 10-22-2022 Echo tthrc r-t 2d w/wom-mode compl spec&colr d Yudelka Moralez [employer]URAL DESIGN ENGINEER Work Phone: Start: 10-22-2022 Ct soft tissue neck w/contrast material Yudelka Moralez [employer] DESIGN ENGINEER Work Phone: Start: 10-22-2022 Ct thorax w/contrast material Yudelka Moralez [employer] DESIGN ENGINEER Work Phone: Start: 10-07-2022 Natriuretic peptide Yudelka Moralez [employer] DESIGN ENGINEER Work Phone: Start: 08-19-2022 Creatinine blood Marciano Ortega MD, MPH Work Phone: Start: 08-19-[address] atten uation skull base mid-thigh Yudelka Moralez [employer] DESIGN ENGINEER Work Phone: Start: 05-29-2022 Assay of magnesium [...] 03-31-2022 Ct thorax w/contrast material Carlos Gomes [employer]URAL DESIGN ENGINEER Work Phone: Start: 03-19-2022 CBC AND ELECTRONIC DIFF Carlos Gomes [employer]URAL DESIGN ENGINEER Work Phone: Start: 03-19-2022 Complete blood count with white cell differential, automated Carlos Gomes [employer]URAL DESIGN ENGINEER Work Phone: Start: 03-19-2022 Comprehensive metabo lic panel Carlos Gomes [employer]URAL DESIGN ENGINEER Work Phone: Plan of Treatment Date Care Activity Detail Author Start: 03-19-2024 Influenza vaccination INFLUENZA VACCINE (Season Ended) [facility] Start: 03-02-2024 End: 03-02-2024 Telemedicine consultation with patient 03/02/2024 9:00 AM EDT Telemedicine [facility] [place] [address] [place] [address] Dolores Johnson, [employer]URAL DESIGN ENGINEER [address] [place] [address] General and Gastrointestinal Surgery [facility] [place] Start: 02-10-2024 End: 02-10-2024 Patient encounter procedure 02/10/2024 11:00 AM EDT Office Visit Division of Medical Oncology [address] [place] [phone] Andreas Ortega MD, MPH [address] [place] [phone] Division of Medical Oncology Start: 01-28-2024 End: 01-28-2024 Patient encounter procedure 01/28/2024 11:30 AM EDT Appointment Imaging [facility] [address] [place] [phone] Yudelka Moralez, [employer]URAL DESIGN ENGINEER [address] [place] [address] [facility] Start: 01-28-2024 End: 01-28-2024 Clinical Support Encounter 01/28/2024 10:15 AM EDT Clinical Support Encounter Clinical Lab Isrrael Kang 1 [address] [facility], [id number] Andreas Ortega MD, MPH [address] [place] [phone] Clinical Lab Isrrael Kang 1 Start: 01-06-2024 End: 01-06-2024 Patient encounter procedure 01/06/2024 3:00 PM EDT Office Visit Division of Medical Oncology [address] [place] [phone] Vinicius Gomes MD, PhD [address] [place] [phone] Division of Medical Oncology Start: 12-14-2023 End: 12-14-2023 Patient encounter procedure 12/14/2023 12:30 PM EDT Office Visit Cardiology Isrrael GREGG [address] [place] [address] Cheikh Coelho MD [address] [place] [address] [facility] Start: 11-26-2023 End: 11-25-2024 [id number] PHENOTYPE [facility] Comment on above: Expected: 11/26/2023 (Approximate), Expi res: 11/25/2024 Start: 11-26-2023 End: 11-25-2024 HUNTER SCREEN IFA [facility] Comment on above: Expected: 11/26/2023 (Approximate), Expi res: 11/25/2024 Start: 11-26-2023 End: 11-25-2024 ANTI MITOCHONDRIAL ANTIBODY [facility] Comment on above: Expected: 11/26/2023 (Approximate), Expi res: 11/25/2024 Start: 11-26-2023 End: 11-25-2024 ANTI SMOOTH MUSCLE ANTIBODY [facility] Comment on above: Expected: 11/26/2023 (Approximate), Expi res: 11/25/2024 Start: 11-26-2023 End: 11-25-2024 MONOCLONAL PROT IMMUNO, SERUM [facility] Comment on above: Expected: 11/26/2023 (Approximate), Expi res: 11/25/2024 Start: 11-26-2023 End: 11-25-2024 T-TRANSGLUTAMINASE IGG/IGA, AB [facility] Comment on above: Expected: 11/26/2023, Expires: Start: 11-08-2023 End: 11-08-2023 Telemedicine consultation with patient 11/08/2023 11:00 AM EDT Telemedicine Division of Medical Oncology [address] [facility] 10th [place] [address] Yudelka Moralez, [employer] DESIGN ENGINEER [address] [place] [address] Division of Medical Oncology Start: 10-28-2023 End: 10-28-2023 Patient encounter procedure 10/28/2023 1:00 PM EDT Office Visit [facility] [address] [place] [address] Kelton Cabrera Jr., MD [address] [place] [address] General [facility] Gastro[facility] [place] Start: 09-08-2023 End: 09-08-2023 Patient encounter procedure 09/08/2023 10:40 AM EST Routine [facility] [address] [place] [address] Ron Ruano, DO [address] [place] [address] [facility] Start: 06-17-2023 End: 06-17-2023 Patient encounter procedure 06/17/2023 1:30 PM EST Office Visit Division of Surgical Oncology [address] [place] [phone] Suman Baker MD, PhD [address] [place] [phone] Division of Surgical Oncology Start: 06-17-2023 End: 06-17-2023 Patient encounter procedure 06/17/2023 12:20 PM EST Appointment Imaging [facility] [address] [place] [address] Suman Baker MD, PhD [address] [place] [phone] Imaging [facility] Start: 03-19-2023 Influenza vaccination [facility] Start: 03-17-2023 End: 03-17-2023 Patient encounter procedure Division of Medical Oncology Start: 03-11-2023 End: 03-11-2023 Patient encounter procedure 03/11/2023 Office Visit Surgical Oncology Suman Baker MD, PhD [address] [place] [address] Division of Surgical Oncology Start: 03-11-2023 End: 03-11-2023 Patient encounter procedure Imaging [facility] Start: 12-22-2022 End: 12-22-2022 Patient encounter procedure 12/22/2022 Office Visit Cardiovascular Medicine Marisela Velásquez, [employer] DESIGN ENGINEER [address] [place] [address] Cardiology [facility] 5 Start: 12-17-2022 End: 12-17-2022 Patient encounter procedure 12/17/2022 Office Visit Oncology Andreas Ortega MD, MPH [address] [facility] [address] [place] [address] Division of Medical Oncology Start: 12-10-2022 End: 12-11-2023 CT Abdomen and Pelvis W contrast IV CT ABDOMEN/PELVIS WITH CONTRAST Imaging Routine Primary malignant neuroendocrine tumor of appendix Expected: 12/10/2022, Expires: 12/11/[address] [facility] Comment on above: Expected: 12/10/2022, Expires: 4 Start: 12-10-2022 End: 12-11-2023 CT Chest W contrast IV CT CHEST WITH CONTRAST Imaging Routine Primary malignant neuroendocrine tumor of appendix Expected: 12/10/2022, Expires: 12/11/[address] [facility] Comment on above: Expected: 12/10/2022, Expires: 4 Start: 12-10-2022 End: 12-10-2022 Patient encounter procedure Imaging [facility] Start: 12-07-2022 End: 06-09-2023 CT Abdomen and Pelvis W contrast IV CT ABDOMEN/PELVIS WITH CONTRAST Imaging Routine Primary malignant neuroendocrine tumor of appendix Expected: 12/07/2022, Expires: 06/09/[address] [facility] Comment on above: Expected: 12/07/2022, Expires: 3 Start: 11-05-2022 End: 11-05-2022 Patient encounter procedure 11/05/2022 Office Visit Oncology Andreas Ortega MD, MPH [address] [place] [phone] Division of Medical Oncology Start: 10-27-2022 End: 10-27-2022 Patient encounter procedure 10/27/2022 Office Visit Cardiovascular Medicine Cheikh Coelho MD [address] [place] [phone] Cardiology [facility] 5 Start: 10-27-2022 End: 10-27-2022 ambulatory 10/27/2022 Telemed Clin Support Genetics Erin Stoner, [facility] [address] [place] [phone] Division of Human Genetics Start: 10-21-2022 Subsequent hospital visit by physician 10/21/2022 Hospital Encounter Computerized Tomography Scan Yudelka Moralez APRN-AIRCRAFT STRUCTURAL DESIGN ENGINEER [address] [place] [address] [facility] [place] Start: 10-21-2022 End: 10-21-2022 Patient encounter procedure 10/21/2022 Appointment Echocardiography Yudelka Moralez APRN-AIRCRAFT STRUCTURAL DESIGN ENGINEER [address] [place] [address] [facility] [place] Start: 10-07-2022 End: 10-08-2023 CT Chest W contrast IV CT CHEST WITH CONTRAST Imaging Routine Carcinoid syndrome SOB (shortness of breath) Tachycardia Primary malignant neuroendocrine tumor of appendix Expected: 10/07/2022, Expires: 10/08/[address] [facility] Comment on above: Expected: 10/07/2022, Expires: Start: 10-07-2022 End: 10-08-2023 CT Neck W contrast IV CT NECK WITH CONTRAST Imaging Routine Primary malignant neuroendocrine tumor of appendix Expected: 10/07/2022, Expires: 10/08/[address] [facility] Comment on above: Expected: 10/07/2022, Expires: 4 Start: 08-26-2022 End: 08-26-2022 Telemedicine consultation with patient 08/26/2022 Telemedicine Oncology Andreas Ortega MD, MPH [address] [place] [phone] Division of Medical Oncology Start: 08-19-2022 End: 08-19-2022 Patient encounter procedure Imaging [facility] Start: 07-08-2022 End: 07-08-2023 Complete blood count with white cell differential, automated CBC, EDIF, PLATELET Lab Routine Primary malignant neuroendocrine tumor of appendix Expected: 07/08/2022, Expires: 07/08/[address] [facility] Comment on above: Expected: 07/08/2022, Expires: 3 Start: 07-08-2022 End: 07-08-2023 Comprehensive metabolic 2000 panel - Serum or Plasma COMPREHENSIVE METABOLIC PANEL Lab Routine Primary malignant neuroendocrine tumor of appendix Expected: 07/08/2022, Expires: 07/08/[address] [facility] Comment on above: Expected: 07/08/2022, Expires: 3 Start: 07-08-2022 End: 07-08-2023 CT Abdomen and Pelvis WO and W contrast IV CT ABDOMEN/PELVIS WITH AND WITHOUT CONTRAST Imaging Routine Primary malignant neuroendocrine tumor of appendix Expected: 07/08/2022, Expires: 07/08/[address] [facility] Comment on above: Expected: 07/08/2022, Expires: 3 Start: 07-08-2022 End: 07-08-2023 Lactate dehydrogenase [Enzymatic activity/volume] in Serum or Plasma LACTATE DEHYDROGENASE Lab Routine Primary malignant neuroendocrine tumor of appendix Expected: 07/08/2022, Expires: 07/08/[address] [facility] Comment on above: Expected: 07/08/2022, Expires: 3 Start: 07-08-2022 End: 07-08-2023 PT Skull base to mid-thigh NUC PET NEUROENDOCRINE Imaging Routine Primary malignant neuroendocrine tumor of appendix Expected: 07/08/2022, Expires: 07/08/2023 [facility] Comment on above: Expected: 07/08/2022, Expires: Start: 07-08-2022 End: 07-08-2022 Patient encounter procedure 07/08/2022 Office Visit Oncology Andreas Ortega MD, MPH [address] [place] [phone] Division of Medical Oncology Start: 07-06-2022 End: 07-06-2022 Telemedicine consultation with patient 07/06/2022 Telemedicine Surgical Oncology Carlos Gomes, [employer] DESIGN ENGINEER [address] [place] [address] [facility] Start: 06-09-2022 End: 06-09-2022 Patient encounter procedure 06/09/2022 Office Visit Surgical Oncology Carlos Gomes, [employer] DESIGN ENGINEER [address] [place] [address] Division of Surgical Oncology Start: 04-21-2022 End: 04-21-2022 Evaluation and management of inpatient 04/21/2022 Surgery Multispecialty Suman Baker MD, PhD [address] [place] [phone] COLECTOMY PARTIAL LAPAROSCOPIC CCCT [facility]IOP Comment on above: COLECTOMY PARTIAL LAPAROSCOPIC Start: 04-21-2022 End: 04-21-2022 Laparoscopy colectomy partial w/anastomosis COLECTOMY PARTIAL LAPAROSCOPIC Primary malignant neuroendocrine tumor of appendix 04/21/2022 7:15 AM EDT [facility] Start: 04-21-2022 Evaluation and management of inpatient 04/21/2022 Hospital Encounter Multispecialty Suman Baker MD, PhD [address] [place] [phone] Primary malignant neuroendocrine tumor of appendix [facility] Comment on above: Primary malignant neuroendocrine tumor o f appendix Start: 03-19-2022 End: 03-19-2023 Colonoscopy flx dx w/collj spec when pfrmd DIAGNOSTIC COLONOSCOPY GI/Bronch STAT Primary malignant neuroendocrine tumor of appendix Expected: 03/19/2022, Expires: 03/19/[address] [facility] Comment on above: Expected: 03/19/2022, Expires: 3 Start: 03-19-2022 Influenza vaccination INFLUENZA VACCINE (#1) [facility] Start: 03-19-2022 End: 03-19-2023 TYPE AND SCREEN - PREADMISSION TYPE AND SCREEN - PREADMISSION Blood Bank Routine Primary malignant neuroendocrine tumor of appendix Expected: 03/19/2022, Expires: 03/19/[address] [facility] Work Phone: Comment on above: Expected: 03/19/2022, Expires: 3 Start: 07-10-2021 COVID-19 VACCINE (2 - Pfizer risk series) COVID-19 VACCINE (2 - Pfizer risk series) [facility] Start: 07-10-2021 COVID-19 VACCINE (2 - Pfizer series) COVID-19 VACCINE (2 - Pfizer series) [facility] Start: 08-14-2020 Tetanus vaccination TETANUS [facility] Start: 2018 Screening for malignant neoplasm of cervix CERVICAL CANCER SCREENING DISCUSSION [facility] Start: 2016 Third diphtheria, tetanus and acellular pertussis (DTaP) vaccination TDAP (ADULT) [facility] Start: 2016 Zoster vaccine hzv live for subcutaneous use ZOSTER (SHINGLES) VACCINE (1 of 2) [facility] Start: 2015 Tetanus vaccination TETANUS [facility] Start: 2013 Screening for Chlamydia trachomatis CHLAMYDIA SCREEN [facility] Start: 2012 HIV screening HIV SCREENING DISCUSSION [facility] Start: 02-11-2011 Vaccination for human papillomavirus HPV VACCINE ADOL (2 - 2-dose series) [facility] Start: 09-11-2010 Vaccination for human papillomavirus HPV VACCINE ADOL (2 - Risk 3-dose series) [facility] Start: 2008 Vaccination for human papillomavirus HPV VACCINE ADOL (1 - 2-dose series) [facility] Start: 2003 PNEUMOCOCCAL VACCINE SERIES (1 - PCV) PNEUMOCOCCAL VACCINE SERIES (1 - PCV) [facility] Start: 2003 PNEUMOCOCCAL VACCINE SERIES (1 of 2 - PCV) PNEUMOCOCCAL VACCINE SERIES (1 of 2 - PCV) [facility] Start: 1997 GONORRHEA SCREEN GONORRHEA SCREEN [facility] Start: 1997 Hepatitis C antibody, confirmatory test HEPATITIS C VIRUS SCREENING [facility] Start: 1997 Hepatitis C screening HEPATITIS C VIRUS SCREENING [facility] Start: 1997 Screening for Chlamydia trachomatis GONORRHEA SCREEN [facility] CHROMOGRANIN A CHROMOGRANIN A L ab Routine Primary malignant neuroendocrine tumor of appendix 03/11/2023 11:44 AM EDT [facility] Work Phone: End: 03-31-2022 CT Abdomen and Pelvis W contrast IV [facility] Work Phone: Comment on above: 1 Occurrences starting 03/31/2022 until 03/31/2022 End: 08-14-2022 CT Abdomen and Pelvis WO and W contrast IV [facility] Work Phone: Comment on above: 1 Occurrences starting 08/14/2022 until 08/14/2022 End: 11-06-2023 CT Abdomen and Pelvis WO and W contrast IV [facility] Comment on above: 1 Occurrences starting 11/06/2023 until 11/06/2023 Ecg routine ecg w/le ast 12 lds trcg only w/o i&r MS ECG, TRACING ONLY MS - OFFICE PERFORMED Routine Primary malignant neuroendocrine tumor of appendix Ordered: 03/19/[address] [facility] Comment on above: Ordered: 03/19/2022 Echocardiography ECHOCARDIOGRAM Echocardiography Routine Carcinoid syndrome SOB (shortness of breath) Tachycardia Ordered: 10/07/[address] [facility] Comment on above: Ordered: 10/07/2022 Laparoscopy colectom y partial w/anastomosis COLECTOMY PARTIAL LAPAROSCOPIC Primary malignant neuroendocrine tumor of appendix [facility] End: 03-09-2023 Magnetic resonance imaging of abdomen and pelvis with contrast MRI ABDOMEN/PELVIS WITHOUT AND WITH CONTRAST Imaging Routine Primary malignant neuroendocrine tumor of appendix 1 Occurrences starting 03/09/2023 until 03/09/[address] [facility] Comment on above: 1 Occurrences starting 03/09/2023 until 03/09/2023 Removal of kike MS STAPLE REM OVAL MS - OFFICE PERFORMED Routine Primary malignant neuroendocrine tumor of appendix Ordered: 06/09/[address] [facility] Comment on above: Ordered: 06/09/2022 SURG PATH REQUEST [facility] Comment on above: Release Upon Ordering for 1 Occurrences starting 05/22/2022, 1 completed TRANSIENT ELASTOGRAPHY TRANSIENT ELASTOGRAPHY GI/Bronch Routine Elevated liver enzymes Ordered: 11/26/[address] [facility] Comment on above: Ordered: 11/26/2023 Immunizations Immunization Date Immunization Notes Care Provider Chhaya dhillon 04-28-2021 influenza virus vaccine, unspecified formulation Carlos Gomes [employer] DESIGN ENGINEER Work Phone: [facility] Payers Date Payer Category Payer Self-pay 2022 Unknown [id number] 2021 Managed Care HMO (unspecified) [employer] HMO [employer] HMO [id number] 2021-Present [address] [place] [address] HMO [id number] 2021 Unknown [employer] PREFERRED PPO [id number] 2021-Present [phone] [address] [place] [address] PPO [id number] 1997 Unknown [id number] 2.16.840.1.502385.3.579.2 .593 1997 Unknown [id number] 2.16.840.1.699013.3.579.2 .593 1997 Unknown [id number] 2.16.840.1.721937.3.579.2 .593 1997 Unknown [id number] 2.16.840.1.266585.3.579.2 .593 1997 Unknown [id number] 2.16.840.1.276940.3.579.2 .593 1997 Unknown [id number] 2.16.840.1.963748.3.579.2 .593 1997 Unknown [id number] 2.16.840.1.007646.3.579.2 .593 1997 Unknown [id number] 2.16.840.1.136278.3.579.2 .593 1997 Unknown [id number] 2.16.840.1.344983.3.579.2 .593 1997 Unknown [id number] 2.16.840.1.996853.3.579.2 .593 1997 Unknown [id number] 2.16.840.1.694924.3.579.2 .593 1997 Unknown [id number] 2.16.840.1.992194.3.579.2 .593 1997 Unknown [id number] 2.16.840.1.951947.3.579.2 .593 1997 Unknown [id number] 2.16.840.1.040675.3.579.2 .593 1997 Unknown [id number] 2.16.840.1.017671.3.579.2 .593 1997 Unknown [id number] 2.16.840.1.851830.3.579.2 .593 1997 Unknown [id number] 2.16.840.1.738317.3.579.2 .593 1997 Unknown [id number] 2.16.840.1.786343.3.579.2 .1259 1997 Unknown [id number] 2.16.840.1.130075.3.579.2 .1259 1997 Unknown [id number] 2.16.840.1.056514.3.579.2 .1259 1997 Unknown [id number] 2.16.840.1.133922.3.579.2 .1259 1997 Unknown [id number] 2.16.840.1.314595.3.579.2 .1259 1997 Unknown [id number] 2.16.840.1.751970.3.579.2 .1259 1997 Unknown [id number] 2.16.840.1.624962.3.579.2 .1259 1997 Unknown [id number] 2.16.840.1.019947.3.579.2 .1259 1997 Unknown [id number] 2.16.840.1.704750.3.579.2 .1259 1997 Unknown [id number] 2.16.840.1.390361.3.579.2 .594 1997 Unknown [id number] 2.16.840.1.303544.3.579.2 .594 1997 Unknown [id number] 2.16.840.1.078083.3.579.2 .594 1997 Unknown [id number] 2.16.840.1.683453.3.579.2 .594 1997 Unknown [id number] 2.16.840.1.517617.3.579.2 .594 1997 Unknown [id number] 2.16.840.1.020086.3.579.2 .594 1997 Unknown [id number] 1997 Unknown [id number] .594 1997 Unknown [id number] .594 1997 Unknown [id number] 2.16.840.1.042600.3.579.2 .594 1997 Unknown [id number] 2.16.840.1.875429.3.579.2 .594 1997 Unknown [id number] 2.16.840.1.492073.3.579.2 .594 1997 Unknown [id number] 2.16.840.1.003945.3.579.2 .594 1997 Unknown [id number] 2.16.840.1.525652.3.579.2 .594 1997 Unknown [id number] 2.16.840.1.141386.3.579.2 .594 1959 Unknown [id number] Unknown [id number] Unknown [id number] [id number] .531 Social History Date Type Detail Facility Unknown if ever smoked [employer] Other Start: 03-11-2023 End: 11-08-2023 Sex Assigned At [facility] Tobacco smoking stat us OHIS Tobacco smoking consumption unknown [facility] Work Phone: Start: 1995 Sex Assigned At Not on file [facility] Start: 03-19-2022 End: 04-14-2022 Tobacco smoking status OHIS Never smoked tobacco [facility] Start: 03-31-2022 End: 11-26-2023 Alcohol intake Ex-drinker (finding) [facility] Start: 03-19-2022 History SDOH Alcohol Comment last alchohol 2019; mixed drink rarely [facility] Start: 04-14-2022 Tobacco use and exposure Smokeless tobacco non-user [facility] Start: 05-12-2022 End: 08-19-2022 Exposure to SARS-CoV-2 (event) Not sure [facility] Start: 06-28-2022 End: 07-08-2022 Exposure to SARS-CoV-2 (event) Unable to assess [facility] Start: 03-11-2023 End: 11-08-2023 History of Social function [facility] Adolescent depressio n screening assessment [address] [facility] Start: 01-12-2023 [facility] Start: 1995 Sex Assigned At Female [facility] Start: 01-25-2023 Gender identity Identifies as female gender (finding) [facility] Start: 01-25-2023 Sexual orientation Heterosexual (finding) [facility] Goals Date Patient Goal Desired Activity /State Personal health goal Clinical Notes 12-22-2021 to 11-26-2023 Kimberley Woodall LPN - 11/26/2023 9:30 AM EDMAMTA Enamorado - 11/26/2023 9:30 AM EDTPatient Lucia Ruano DO - 08/24/2023 10:10 AM ESTPatient InstructionsPatient Instructions Note Date & Type Note Facility 11-26-2023 History of Present illness Narrative This nurse verified pts name and . Subjective History of Present Illness: Chief Complaint Patient presents with New Patient Zainab Swift is a 28 y.o. female who presents to the [facility], Hepatology, and Nutrition Clinic today regarding her diagnosis/chief complaint(s) of elevated liver enzymes, hepatomegaly. I have reviewed her extensive medical, surgical, family and social history and have updated medication and allergy information in the computerized patient record. 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 She is s/p resection of falciform ligament, omentectomy, right hemicolectomy. - radical resection of peritoneal tumor implants, resection of small peritoneal nodules, and administration of HIPEC with mitomycin C. AST 40 ALT 66 11/06/23 CTAP with hepatomegaly increased from 18.8 cm to 19.8 cm She is c/o RUQ pain in the last month. She states it occurred after she delivered her baby 9 weeks ago. She had to have her gallbladder removed during her second trimester (06/18/2023) d/t stones. No known family history of liver disease. She has a monthly octreotide injection beginning 3 weeks ago. She has frequent bowel movements. No alcohol use. Last drink was 3 years ago. No herbal supplements Review of Systems Constitutional: Positive for malaise/fatigue. Negative for weight loss and weight gain. Skin: Negative. Eyes: Negative. Cardiovascular: Negative. Respiratory: Negative. Gastrointestinal: Negative for nausea, vomiting, positive RUQ abdominal pain, diarrhea, No constipation, blood in stool and melena. Musculoskeletal: Negative. Neurological: Negative. Negative for loss of consciousness. Psychiatric: Negative for memory loss. Negative for insomnia.Negative for substance abuse. Lymph/Heme: Negative No Patient Care Coordination Note on file. Patient Active Problem List Diagnosis Primary malignant neuroendocrine tumor of appendix Carcinoid syndrome Obesity (BMI 30.0-34.9) Past Medical History She has a past medical history of Anxiety, Arthritis, Borderline personality disorder, Clostridioides difficile infection (05/2022), Depression, GERD (gastroesophageal reflux disease), and History of cancer. Past Surgical History: Procedure Laterality Date SECTION 2023 HYPERTHERMIA BY INTRACAVITARY PROBE (HIPEC) N/A 05/22/2022 Laterality: N/A; Surgeon: Suman Baker MD, PhD; Location: [facility] MAIN OR COLECTOMY PARTIAL OPEN Right 05/22/2022 Laterality: Right; Surgeon: Suman Baker MD, PhD; Location: [facility] MAIN OR DEBULKING INTRA-ABDOMINAL/PELVIC/RETROPERIT FLEMING W/ OMENECTOMY & PELVIC PARA-AORTIC LYMPHADENECTOMY N/A 05/22/2022 Laterality: N/A; Surgeon: Suman Baker MD, PhD; Location[facility] OR COLECTOMY PARTIAL LAPAROSCOPIC N/A 04/21/2022 Laterality: N/A; Surgeon: Suman Baker MD, PhD; Location: [facility] MAIN OR COLONOSCOPY DIAGNOSTIC 04/08/2022 APPENDECTOMY LAPAROSCOPIC 02/03/2022 [place], [place] Current Outpatient Medications Medication Sig acetaminophen 500 MG tablet Take 1 tablet by mouth every 6 hours as needed for Mild Pain. FLUoxetine 20 MG capsule Take 2 capsules by mouth daily. lamoTRIgine 100 MG tablet daily. Loperamide 2 MG capsule Take 1 capsule by mouth as needed for Diarrhea. 2 stat then 1 cap after each loose stool Octreotide Acetate 100 MCG/ML Solution Prefilled Syringe prefilled syringe Inject 1 mL under the skin 3 times daily as needed for Other (carcinoid syndrome). Pancrelipase, Kpl-Rfmd-Qcom, (Creon) [id number] units Cap DR Particles Please take one cap with each meal, and one cap with each snack. Octreotide acetate (SandoSTATIN LAR Depot) 20 MG Kit injection Inject 20 mg intramuscularly every 28 days. (Patient not taking: Reported on 11/08/2023) pantoprazole [address] tablet DR Take 2 tablets by mouth daily. (Patient not taking: Reported on 11/08/2023) Vit-DSS-Fe Cbn-FA ( AD PO) Take by mouth. (Patient not taking: Reported on 11/08/2023) Allergies Allergen Reactions Flagyl [Metronidazole] Gabapentin Nausea Only Social History Social History Narrative Not on file Substance Abuse History She reports that she has never smoked. She has never used smokeless tobacco. She reports that she does not currently use alcohol. She reports that she does not use drugs. Family History Her family history includes Breast Cancer in her maternal aunt and another family member; Cancer in her cousin, maternal aunt, and another family member; Leukemia in some other family members; Lung Cancer in her maternal grandfather; Myocardial Infarction (age of onset: 59) in her maternal grandmother. Physical Exam Blood pressure 110/76, pulse 65, resp. rate 16, height 1.549 m (5' 1 ), weight 73.5 kg (162 lb), SpO2 98%. Constitutional: She is oriented to person, place, and time and well-developed, well-nourished, and in no distress. She appears not jaundiced. She appears not cachectic. HENT: Head: Normocephalic. Mouth/Throat: Oropharynx is clear and moist. Eyes: No scleral icterus. Neck: Neck supple. Cardiovascular: Normal rate and regular rhythm. No murmur heard. Pulmonary/Chest: Breath sounds normal. Abdominal: Soft. soft, non-tender. Bowel sounds normal. No masses, no organomegaly, abnormal findings: tenderness moderate in the RUQ Musculoskeletal: She exhibits no edema. Lymphadenopathy: She has no cervical adenopathy. Neurological: She is alert and oriented to person, place, and time. Gait normal. Skin: Skin is warm and dry. No petechiae noted. No erythema. Assessment and Plan Zainab was seen today for new patient. She was referred d/t liver enzyme elevation and mild hepatomegaly on CTAP. Cholecystectomy on 06/18/23 d/t cholelithiasis. She was in her second trimester. Plan: Labs today to evaluate for causes of liver enzyme elevation Fibroscan ordered to evaluate your liver for fibrosis, steatosis Follow up in 3 months - video Avoid alcohol Diagnoses and all orders for this visit: Elevated liver enzymes - ALPHA 1 ANTITRYPSIN; Future - VXZHE-0-NVSOQHYGUGH PHENOTYPE; Future - HUNTER SCREEN IFA; Future - ANTI MITOCHONDRIAL ANTIBODY; Future - ANTI SMOOTH MUSCLE ANTIBODY; Future - CBC, EDIF, PLATELET; Future - CERULOPLASMIN; Future - CHEM 7 (LYTES,BUN,CREA,GLUC); Future - FERRITIN; Future - HEPATIC FUNCTION PANEL; Future - IRON/IRON BINDING/TRANSFERRIN; Future - MONOCLONAL PROT IMMUNO, SERUM; Future - PROTIME-INR; Future - T-TRANSGLUTAMINASE IGG/IGA, AB; Future - TSH; Future - TRANSIENT ELASTOGRAPHY documented in this encounter [facility] 11-26-2023 Instructions MAMTA Dee - 11/26/2023 9:30 AM EDT Labs today to evaluate for causes of liver enzyme elevation Fibroscan ordered to evaluate your liver for fibrosis, steatosis Follow up in 3 months - video documented in this encounter [facility] 08-24-2023 History of Present illness Narrative Reason [...] nursing note reviewed. Exam conducted with a magnetizer present. Vitals: Estimated body mass index is [...] Ron Ruano DO documented in this encounter [facility] 12-10-2022 History of Present illness Narrative Chief Complaint: Chief Complaint Patient presents with Follow-up HPI: Zainab Swift is a 27 y.o. female who presents to [facility] for post-operative [...] (Patient not taking: Reported on 07/06/2022) Pancrelipase, Roh-Lhgg-Dmol, (Creon) [id number] units Cap DR Particles Take two caps [...] 27 y.o. female who presents to [facility] for post-operative [...] (Patient not taking: Reported on 07/06/2022) Pancrelipase, Lzk-Lmvf-Dtjk, (Creon) [id number] units Cap DR Particles Take two caps [...] interviewed and examined this patient with the DOT ETCHER/fellow/resident. I reviewed the history and exam detailed [...] months with repeat imaging. Suman Baker MD/PhD rectification printer Division of Surgical Oncology Department of Surgery documented in this encounter [facility] 12-10-2022 Instructions MAMTA Villagran - 12/10/2022 12:30 PM EDT documented in this encounter [facility] 10-22-2022 History of Present illness Narrative [...] ulcers, vision changes. She endorses fatigue with clinical rehab liaison but overall able to do everything on [...] Surgeon: Suman Baker MD, PhD; Location: [facility] MAIN OR COLECTOMY PARTIAL OPEN [...] OR COLONOSCOPY DIAGNOSTIC 04/08/2022 APPENDECTOMY LAPAROSCOPIC 02/03/2022 [place], [place] Family History Problem Relation Age of [...] Reported on 07/06/2022) 30 tablet 0 Pancrelipase, Mye-Mozk-Tslu, (Creon) [id number] units Cap DR Particles Take two caps [...] with Rebekah Suero MD I saw Zainab Swift with [...] Rebekah Suero MD documented in this encounter [facility] 10-22-2022 Instructions Rebekah Suero MD - [...] Rub Alcohol hand rub, also called hand anesthetic assistant, can be used instead of soap and [...] they are dry, atleast 20-30 seconds. [facility]. This handout is for informational purposes only. Talk with your doctor or healthcare team if you have any questions about your care. For more health information call the Library for Health Information at [phone] or email: [email or web address]. documented in this encounter [facility] 10-22-2022 History of Present illness Narrative Intravenous access obtained and remained for next appointment in cardioology at [facility]. 22 gauge IV in left ac. Dressing intact and/or coban used to secure access. Patient instructed to report directly to next appointment. documented in this encounter [facility] 10-07-2022 Note Acute Coronary Syndr ome (ACS): Initial Evaluation and Management: [email or web address] [facility] 10-07-2022 History of Present illness Narrative [...] able to do housework. 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 Eating ok. Weight [...] Reported on 07/06/2022) 30 tablet 0 Pancrelipase, Xdi-Xzqy-Aiav, (Creon) [id number] units Cap DR Particles Take two caps [...] OR COLONOSCOPY DIAGNOSTIC 04/08/2022 APPENDECTOMY LAPAROSCOPIC 02/03/2022 [place], [place] Past medical, surgical, family, and social [...] any new or worsening symptoms. Yudelka Moralez APRN-AIRCRAFT STRUCTURAL DESIGN ENGINEER Endocrine Tumor Program [facility] and Mohamud Aguir[facility] To discuss with Dr. Ortega documented in this encounter [facility] 10-07-2022 Instructions Johana Lutz RN - [...] script to Zainab Thank you for choosing [facility] for your cancer care. FMLA/Disability forms: Please allow up to 2 weeks for the forms to be returned to you +++ should you need any FMLA, Short term disability or residential disability forms filled out please fax them to (f) [phone] ++++ Refill requests: Please allow 24-48 hours for a response My chart message response: PLEASE DO NOT SEND IN URGENT/EMERGENT MESSAGES VIA MY CHART. Please allow up to 24-48 hours for a response via my chart. Should you have questions or concerns, please call [phone] documented in this encounter [facility] 07-08-2022 History of Present illness Narrative [...] quickly and requires nap. 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 Better appetite with [...] OR COLONOSCOPY DIAGNOSTIC 04/08/2022 APPENDECTOMY LAPAROSCOPIC 02/03/2022 [place], [place] Social History Socioeconomic History Marital status: [...] recommendations. MAMTA Travis Neuroendocrine Tumor Program [facility] and Mohamud Aguir[facility] Addendum by Dr. Ortega: IAttending [...] She was seen by Dr. Suman Baker ([facility] surgon) in 03/[address] chest revealed a [...] and fatigue. ECOG PS 1. 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 1. Metastatic, well differentiated, grade 1, appendicular [...] placebo groups was 14.3 and 6 months (p=[id number]), respectively. The CLARINET study, [which enrolled patients [...] 2. LAMN: Discussed with Dr. Vinicius Gomes/[facility] who recommended active surveillance. No role for adjuvant systemic therapy. Patient will continue to follow with Dr. Suman Baker. 3. Hx of NET in family: referral to genetics 4. Transaminitis: discontinue hepatotoxins/acetaminophen. Repeat LFTs at [facility]. documented in this encounter [facility] 07-08-2022 Instructions Yina Amaya RN - [...] Tylenol Cancel pathology-done documented in this encounter [facility] 06-09-2022 History of Present illness Narrative Chief Complaint: Chief Complaint Patient presents with Follow-up HPI: Zainab Swift is a 27 y.o. female who presents to [facility] for post-operative [...] status. MAMTA Carrion documented in this encounter [facility] 06-09-2022 Instructions Veronique Calvin RN - 06/09/2022 1:15 PM EST Tele health visit with Carlos Gomes CNP in 4 weeks on a Wednesday. Referral placed to neuroendocrine oncology. Return in [address] Baker with scans same day. documented in this encounter [facility] 05-29-2022 Note Formatting of this n [...] via wheelchair with all belongings at 1147. [facility] 05-29-2022 Miscellaneous Notes Patient and spouse [...] and assistance is needed, please page the customer solutions supervisor PCRM at [phone]. Patient did well overnight. Patient pain mostly being controlled with epidural, but scheduled medications controlling her mild to moderate breakthrough pain. Patient with steady gait and only needig needing stand-by assistance. Patient now with bowel function and feeling hungry. Patient hopefully to have diet started today. Patient was able to be up in walking with stand-by assistance from multiple times yesterday. 4: Moonlighter paged: Rm 1207, Kryling: FYI pt states that she can't tolerate taking the olanzapine disintegrating tablet because of the NG. Thanks [id number] Q1 safety rounds completed. Patient pain controlled [...] Information Source patient Information Source Name Zainab Torreannekang-in person Information Source Number Demographics reviewed Outpatient Providers Outpatient Providers Updated In IHIS Yes Contact Information Oracle R12 Developer/SW Added to Care Team Yes This Hog Confinement System Manager is Primary Oracle R12 Developer/SW Yes (Antonio Jiang RN [facility] [phone]) Oracle R12 Developer Name Pinky Barcenas RN [facility] Oracle R12 Developer's Social Work Contact Name Bailey WILLAMS, [facility] Whiskey Filterer's Living Environment Lives With spouse Living Arrangements [...] Education And Care For Discharge? Phill Swift [phone] Can Support Person Meet The Care Needs Of The Patient? 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 Employment/Financial Concerns no Source Of Income salary/wages Financial Concerns none Insurance Medical Insurance Verified Yes Prescription Coverage Yes Pharmacy updated in [facility] Yes Initial Discharge Planning Home Care Services (SPORTS EDITOR) No Home Therapies (SPORTS EDITOR) None DME (SPORTS EDITOR) None Medical Supplies (SPORTS EDITOR) None Patient Goal for Discharge Return home with assistance from family and friends Anticipated discharge disposition Home Anticipated Services at Discharge Outpatient follow up Anticipated Changes Related to Illness none Current Discharge Risk high risk diagnoses (i.e., CHF, Stroke, DM, chronic pain, abdominal pain, nausea and vomiting) Transportation Available car Home Care Services (SPORTS EDITOR) Additional Home Care Services (SPORTS EDITOR) no Assessment/Concerns to be Addressed Concerns [...] Lines/Drains/Tubes Abdominal incision with dressing x 2 Hampton drain x 1-under distal dressing NG-low wall [...] All questions answered. 1514: Patient discharged from [facility] PACU per protocol. Patient transported via gurney with side rails up x2 with HOB>30 degrees to room 1204 [facility] by Natalia EMERY and Dang LISA. Family called to patient's bedside. 1310: Patient arrives in [facility] PACU from OR via gurney with side rails up x2 with HOB >30 degrees, accompanied by Anesthesiologist: Vinicius Gupta DO; Chayo Benson MD Drafter Civil (Cad): VIJAYA Gamboa; VIJAYA Lopez Feed Mixer Assisting: Richard Bradshaw MD Baling Machine Tender: Wali Art. Patient placed on monitors, VSS. Report received from anesthesia. Patient assessed, see assessment. 1427: PACU labs and abdominal xray for NG placement cleared by Miguel Betancourt at this time. Zainab Swift ([id number]) PRE OPERATIVE DIAGNOSIS Primary malignant neuroendocrine tumor of appendix [C7A.8] POST OPERATIVE DIAGNOSIS Post-Op Diagnosis Codes: * Primary malignant neuroendocrine tumor of appendix [C7A.8] PROCEDURE PERFORMED RIGHT COLECTOMY HYPERTHERMIC INTRAPERITONEAL CHEMOTHERAPY MITOMYCIN C PRIMARY CLOSURE Yes INTRAOPERATIVE FINDINGS Small implants on small bowel and in pelvic peritoneum resected ([id number] piece of peritoneum resected). JR drain placed in pelvis. SURGEON Surgeon(s) and Role: * Suman Baker MD, PhD - Primary ANESTHESIOLOGIST Anesthesiologist: Vinicius Gupta DO; Chayo Benson MD Drafter Civil (Cad): VIJAYA Gamboa; VIJAYA Lopez Feed Mixer Assisting: Richard Bradshaw MD Baling Machine Tender: Wali Art SURGICAL STAFF Manual Writer: Piedad Maki RN; Rima Medel RN Relief Manual Writer: Suri Stockton RN Relief Scrub: [facility] Scrub Person: Heidy Skelton; Tammy [...] May 22, 2022 1:06 PM Zainab Swift ([id number]) PRE OPERATIVE DIAGNOSIS Primary malignant neuroendocrine tumor [...] Anesthesiologist: Vinicius Gupta DO; Chayo Benson MD Drafter Civil (Cad): VIJAYA Gamboa; VIJAYA Lopez Feed Mixer Assisting: Richard Bradshaw MD Baling Machine Tender: Wali Art SURGICAL STAFF Manual Writer: Piedad Maki RN; Rima Medel RN Relief Manual Writer: Suri Stockton RN Relief Scrub: Ghanshyam Townsend Scrub Person: Heidy Skelton; Tammy Lopez Resident Assisting: Rodolfo Arnold MD; Narciso Hong MD COMPLICATIONS None ESTIMATED BLOOD LOSS 25 ml SPECIMENS ID Type Source Tests Collected by Time Destination 1 : CALCIFORM LIGAMENT Permanent SURG PATH SURG PATH REQUEST Suman Baker MD, PhD 05/22/202231 2 : Omentum Permanent SURG PATH SURG [...] 1:04 PM SURGEONS: Suman Baker MD, PhD AND TAXI INSTRUCTOR BUS TROLLEY SURGEON: Rodolfo Arnold MD PROCEDURE: - Exploratory [...] second timeout per standard procedure at the [facility] We made a midline incision using a [...] sarmiento stapler device. Next, we began the nexjdb-zx-kxbiwqj dissection to mobilize the colonic mesentery. We [...] filed. We then proceeded with creating a zzwg-an-dtpe functional end-to-end anastomosis between the distal ileum [...] Seen 05/22/22 documented in this encounter [facility] 05-29-2022 Hospital course Narrative Discharge Summary [...] of Surgical Oncology Arrive at: Arrive to [facility] Floor Registration [id number] documented in this encounter [facility] 05-28-2022 Note Formatting of this n [...] and assistance is needed, please page the customer solutions supervisor PCRM at [phone]. [facility] 05-28-2022 History of Present illness Narrative [...] the care of Zainab Swift. Please page [phone] or call [phone] with any questions or concerns. Elroy Powell MD Acute Pain Service Senior Resident @ [phone] Subjective: Passing gas and having regular BMs. [...] Plan was discussed with Dr. Oanh Betancourt, TICKET SORTER-AIRCRAFT STRUCTURAL DESIGN ENGINEER HPB surgery G3 service [id number] Anesthesia Acute Pain Progress Note Zainab Swift [...] acute pain service at [phone] or call [phone] with any questions or concerns. Yann Burr [...] with MAMTA Wisdom B surgery G3 service [id number] Psychosocial Assessment Per chart review, patient is a is a 27 y.o. 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 PMH: anxiety, borderline personality disorder, depression, GERD SW met with patient to introduce self, explain licensed clinical social worker role during inpatient stay, and answer patient questions. Patient was alert and oriented x4 and agreeable to SW visit. Information Source Information Source: patient , review of medical record, spouse Information Source Name: Arlette Swift Information Source Number: see demographics Contact Information Oracle R12 Developer Name: Pinky Smith RN [facility] Oracle R12 Developer's Social Work Contact Name: Bailey Quarles IN HOME SALES REPRESENTATIVE [facility] Whiskey Filterer's Living Environment Lives With: spouse Living Arrangements: house (one story house wiith 3 Steps to enter) Provides Primary Care For: no one Primary Care Provided By: spouse/significant other, self Support System: Immediate family Able to Return to Prior Arrangements: yes Employment/Financial Employed?: Yes 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 Health Insurance / Rx: [id number] [place] [address] [address] [facility] Anticipated Discharge Plan: Pt report she plans to return home with care and transportation provided by her . Medical Team Considerations: None SW Interventions/Recommendations: Service SW name and contact information placed on white board in patient's room to contact as needed. SW will continue to remain available to provide assistance and support as needed during inpatient stay. Bailey Magallanes, IN HOME SALES REPRESENTATIVE, SURGICAL ORDERLY SON and HPB Whiskey Filterer Pager: [phone] For Evening (4:30pm-8am) and Weekend SW needs please call [phone] or page [phone] Anesthesia Acute Pain Progress Note Zainab Swift [...] acute pain service at [phone] or call [phone] with any questions or concerns. Yann Burr [...] regimen. Plan was discussed with MAMTA Wisdom [facility] surgery G3 service [id number] Anesthesia Acute Pain Progress Note Zainab Swift [...] acute pain service at [phone] or call [phone] with any questions or concerns. Yann Burr [...] interviewed and examined this patient with the DOT ETCHER/fellow/resident. I reviewed the history and exam detailed in the note and have edited it as necessary. I agree with the medical decision making unless otherwise noted below. The patient is doing well. Her pain is well controlled. She is mildly distended on exam. We will continue NPO with NGT until return of bowel function. Suman Baker MD/PhD rectification printer Division of Surgical Oncology Department of Surgery [...] output. NG with bilious output. Assessment/Plan: Zainab Swfit is a 27 y.o. female with primary [...] Plan was discussed with Dr. Oanh Colón, TICKET SORTER-AIRCRAFT STRUCTURAL DESIGN ENGINEER HPB surgery G3 service [id number] HPB Surgery Note Subjective: Patient doing well [...] acute pain service at [phone] or call [phone] with any questions or concerns. Yann Burr [...] regimen Please page acute pain service at [phone] or call [phone] with any questions or concerns. Yann Burr [...] acute pain service at [phone] or call [phone] with any questions or concerns. Richard Bradshaw MD residential glazier [facility] documented in this encounter [facility] 05-27-2022 Note Formatting of this n [...] with stand-by assistance from multiple times yesterday. [facility] 05-26-2022 Consult note Formatting of th [...] 1: Location: forearm, anterior, right Device/Lot Number: [id number] catheter system Gauge/Length: 1 3/4 in length;20 gauge Unsuccessful Insertion Attempts: 1 Unsuccessful Attempt Location/Site: Pain Prevention/Patient Tolerance: distraction;tolerated well;appears comfortable Removal: Additional Comments: placed by Carla Mccurdy RN Lumen 2: Lumen 3: Peripheral IV Present on Admission: (Retired/Read Only) Location: (Retired/Read Only) Device: (Retired/Read Only) Gauge/Length: Brusher/Lot Number: Unsuccessful Insertion Attempts: (Retired/Read Only) Unsuccessful [...] care of this patient. Vascular Access Team [id number] [facility] 05-26-2022 Consult note Formatting of th [...] 1: Location: forearm, anterior, right Device/Lot Number: goil-wym-rwuiar catheter system Gauge/Length: 1 3/4 in length;20 gauge Unsuccessful Insertion Attempts: 1 Unsuccessful Attempt Location/Site: Pain Prevention/Patient Tolerance: distraction;tolerated well;appears comfortable Removal: Additional Comments: placed by Carla Mccurdy RN Lumen 2: Lumen 3: Peripheral IV Present on Admission: (Retired/Read Only) Location: (Retired/Read Only) Device: (Retired/Read Only) Gauge/Length: Brusher/Lot Number: Unsuccessful Insertion Attempts: (Retired/Read Only) Unsuccessful [...] care of this patient. Vascular Access Team [id number] documented in this encounter [facility] 05-25-2022 Note Formatting of this n ote might be different from the original. 4: Moonlighter paged: Rm [phone], Kryling: FYI pt states that she can't tolerate taking the olanzapine disintegrating tablet because of the NG. Thanks [id number] [facility] 05-22-2022 Note Formatting of this n [...] outcomes by discharge/transition of care. Outcome: Ongoing [facility] 05-22-2022 Note Formatting of this n ote might be different from the original. I certify that this patient requires inpatient services at this time. I anticipate the expected length of stay will include at least two midnights. Inpatient services are due to the following medical concerns appendiceal NET. Plans for post hospitalization care will be discharge to home. [facility] 05-22-2022 Note Formatting of this n ote is different from the original. 05/22/22 1608 Referral Information Arrived From home or self-care;operating room Readmission Information Was patient readmitted within 30 Days? No Information Source Information Source patient Information Source Name Zainab Swift-in person Information Source Number Demographics reviewed Outpatient Providers Outpatient Providers Updated In IHIS Yes Contact Information Oracle R12 Developer/SW Added to Care Team Yes This Hog Confinement System Manager is Primary Oracle R12 Developer/SW Yes (Antonio Jiang RN [facility] [phone]) Oracle R12 Developer Name Pinky Barcenas RN [facility] Oracle R12 Developer's Social Work Contact Name Bailey WILLAMS, SURGICAL ORDERLY Whiskey Filterer's Living Environment Lives With spouse Living Arrangements [...] Education And Care For Discharge? Phill Swift [phone] Can Support Person Meet The Care Needs Of The Patient? 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 Employment/Financial Concerns no Source Of Income salary/wages Financial Concerns none Insurance Medical Insurance Verified Yes Prescription Coverage Yes Pharmacy updated in IHIS Yes Initial Discharge Planning Home Care Services (SPORTS EDITOR) No Home Therapies (SPORTS EDITOR) None DME (SPORTS EDITOR) None Medical Supplies (SPORTS EDITOR) None Patient Goal for Discharge Return home with assistance from family and friends Anticipated discharge disposition Home Anticipated Services at Discharge Outpatient follow up Anticipated Changes Related to Illness none Current Discharge Risk high risk diagnoses (i.e., CHF, Stroke, DM, chronic pain, abdominal pain, nausea and vomiting) Transportation Available car Home Care Services (SPORTS EDITOR) Additional Home Care Services (SPORTS EDITOR) no Assessment/Concerns to be Addressed Concerns [...] and for discharge planning. Medical team updated. [facility] 05-22-2022 Note Formatting of this n ote might be different from the original. 1512: Report called to Jevon EMERY on 12 [facility] All questions answered. 1514: Patient discharged from [facility] PACU per protocol. Patient transported via gurney with side rails up x2 with HOB>30 degrees to room 1204 [facility] by Natalia EMERY and Dang LISA. Family called to patient's bedside. [facility] 05-22-2022 Note Formatting of this n ote might be different from the original. 1310: Patient arrives in [facility] PACU from OR via gurney with side rails up x2 with HOB >30 degrees, accompanied by Anesthesiologist: Vinicius Gupta DO; Chayo Benson MD Drafter Civil (Cad): VIJAYA Gamboa; VIJAYA Lopez Feed Mixer Assisting: Richard Bradshaw MD Baling Machine Tender: Wali Art. Patient placed on monitors, VSS. Report received from anesthesia. Patient assessed, see assessment. 1427: PACU labs and abdominal xray for NG placement cleared by Miguel Betancourt at this time. [facility] 05-22-2022 Note Formatting of this n ote is different from the original. 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 JR drain placed in pelvis. SURGEON Surgeon(s) and Role: * Suman Baker MD, PhD - Primary ANESTHESIOLOGIST Anesthesiologist: Vinicius Gupta DO; Chayo Benson MD Drafter Civil (Cad): VIJAYA Gamboa; VIJAYA Lopez Feed Mixer Assisting: Richard Bradshaw MD Baling Machine Tender: Wali Art SURGICAL STAFF Manual Writer: Piedad Maki RN; Rima Medel RN Relief Manual Writer: Suri Stockton RN Relief Scrub: Marchella Bardelang Scrub Person: Heidy Skelton; Tammy Lopez Resident [...] #4 Permanent SURG PATH SURG PATH REQUEST uSman Baker MD, PhD 05/22/2022 0941 This procedure was not performed to treat colon cancer through resection Rodolfo Arnold MD May 22, 2022 1:06 PM [facility] Work Phone: 05-22-2022 Note Formatting of this n ote is different from the original. Zainab Jamison ([id number]) PRE OPERATIVE DIAGNOSIS Primary malignant neuroendocrine tumor [...] Anesthesiologist: Vinicius Gupta DO; Chayo Benson MD Drafter Civil (Cad): VIJAYA Gamboa; VIJAYA Lopez Feed Mixer Assisting: Richard Bradshaw MD Baling Machine Tender: Wali Art SURGICAL STAFF Manual Writer: Piedad Maki RN; Rima Medel RN Relief Manual Writer: Suri Stockton RN Relief Scrub: Ghanshyam Townsend [...] Hong MD May 22, 2022 1:04 PM [facility] Work Phone: 05-22-2022 Note Formatting of this n ote is different from the original. SURGEONS: Suman Baker MD, PhD AND TAXI INSTRUCTOR BUS TROLLEY SURGEON: Rodolfo Arnold MD PROCEDURE: - Exploratory [...] second timeout per standard procedure at the [facility] We made a midline incision using a [...] sarmiento stapler device. Next, we began the endmub-vn-acahpoe dissection to mobilize the colonic mesentery. We [...] filed. We then proceeded with creating a ekyw-jv-vcai functional end-to-end anastomosis between the distal ileum [...] participated for the entirety of the case. [facility] Work Phone: 05-22-2022 Nurse Surgical operation note 0815 Family notified of surgery start 102, 1211 Family updated 1228 Handoff report sent to PACU charge nurse 1255 PACU given notice of arrival 1309 Patient extubated and transported to PACU with anesthesia at bedside and on oxygen inhalation Rima Medel RN [facility] 05-22-2022 Nurse Note 0815 Family notified of surgery start 1021, 121 Family updated 1228 Handoff report sent to PACU charge nurse 1255 PACU given notice of arrival 1309 Patient extubated and transported to PACU with anesthesia at bedside and on oxygen inhalation Rima Medel RN documented in this encounter [facility] 05-22-2022 Note Formatting of this n [...] Visit Frequency Sat Last Date Seen 05/22/22 [facility] 05-22-2022 History and physical note Surgical [...] N/A; Surgeon: Suman Baker MD, PhD; Location: [facility] MAIN OR COLONOSCOPY DIAGNOSTIC 04/08/2022 APPENDECTOMY LAPAROSCOPIC 02/03/2022 [place], [place] Family History Family History Problem Relation [...] day before surgery 05/21/2022 04/23/22 Elsie Mason APRN-AIRCRAFT STRUCTURAL DESIGN ENGINEER FLUoxetine 40 MG capsule 40 mg, Oral, [...] hours as instructed. 05/21/2022 04/23/22 Elsie Mason APRN-AIRCRAFT STRUCTURAL DESIGN ENGINEER Review of Systems Denies the following: Arrhythmias, [...] to the patient's satisfaction. Liza Cisneros PA-C [facility] 05-22-2022 History and physical note Surgical [...] N/A; Surgeon: Suman Baker MD, PhD; [facility] COLON[facility] DIAGNOSTIC 04/08/2022 APPENDECTOMY LAPAROSCOPIC 02/03/2022 [place], [place] Family History Family History Problem Relation [...] Week Historical Provider bisacodyl 5 MG Tab Take all 4 tablets at 11am the [...] hours as instructed. 05/21/2022 04/23/22 Elsie Mason APRN-AIRCRAFT STRUCTURAL DESIGN ENGINEER Review of Systems Denies the following: Arrhythmias, [...] Cisneros PA-C documented in this encounter [facility] 05-21-2022 Hospital Discharge instructions Pinky Be RN - 05/21/2022 10:38 AM EDT Contacts: Suman Baker MD Office Number: [phone] Option 1 During office hours, Wednesday through Wednesday, 8:00 AM to 4:30 PM, call the office if you have any questions or concerns. After hours, weekends and holidays call the office number and you will be transferred to the After Hours Nurse Line. Call 911 for Emergencies. Your patient case coordinator (PCRM) has arranged your appointments for follow [...] pharmacist before using any other medicine, including wmjy-cwt-bscctyj medicines, vitamins, and herbal products. Avoid taking [...] many resources are available. The [facility] [employer] Direct Information Call to request information or check hours. The [facility] Target Data: or , www.[employer] [facility] Classes: bright box for Life, Integrative Care Monthly Classes The bright box for Life Program offers a series of [...] families and friends. For more information, contact Condition One at or visit our website at www.[employer] Resources in [facility] include the following: The Canadian Cancer Society, [facility] Unit . The [facility] The Cancer Support CommunityAusten Riggs Center: http://cancersupportohio.org/prog xabc-mic-qxlseohq/virtual-communi ty/ National Resources: Canadian Cancer Society (ACS), www.cancer.org 0-802-JRF-2345, [place]: 8-520-WFM-[place]. National Comprehensive Cancer [facility] (NCCN) 0-612-178-NCCN, www.nccn.org National Cancer [place] (NCI) 4-196-2-CANCER, www.nci.gov The following attachments cannot be sent through Care Everywhere.Lovenox or Heparin: Subcutaneous Injections ([facility]) (Cambodian)documented in this encounter [facility] 04-29-2022 Note PROCEDURE: XR HIP RT [...] authenticated by: CAROLYN WALSH Date: 2022-04-29 16:59 [facility] 04-29-2022 Note PROCEDURE: XR HIP [...] by: CAROLYN WALSH Date: 2022-04-29 16:59 [facility] 04-29-2022 Note PROCEDURE: XR HIP [...] by: CAROLYN WALSH Date: 2022-04-29 16:59 [facility] 03-19-2022 History of Present illness [...] appendectomy on 02/03/22 for acute appendicitis at [facility]. 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 She presents to [facility] GI Surgical Oncology clinic for surgical [...] History: Procedure Laterality Date APPENDECTOMY LAPAROSCOPIC 02/03/2022 [place], [place] No Known Allergies Current Outpatient Medications [...] in our surgical oncology clinic at [facility], [facility] and [facility]. As you know, Ms. Swift [...] the future. Sincerely, Suman Baker MD, PhD rectification printer Department of Surgery Division [place] [address] Office [phone] Fax [email or web address] documented in this encounter [facility] 03-19-2022 Instructions Rhoda Lazo RN - 03/19/2022 3:00 PM EDT Pre-operative Information As a patient at the [facility], you may work with various departments and have help from many professionals. One of these is a surgical oncologist who works in the Division of Surgical Oncology. Surgical oncologists are surgeons who have completed advanced training to care for cancer patients. All of the surgical oncologists at the [facility] have completed specialized training and are board-certified. The surgeon who will be performing your surgery is Suman Baker M.D., rectification printer. [address] [facility], [place] [address] Office phone: [phone] We are available to take calls Wednesday-Wednesday 8:00am-4:30pm. During non-business hours and holidays phone calls will be forwarded to a service covering our patients. Please communicate with our team through [facility] for non-urgent issues only. Office fax: [phone] Clinic Nurse Practitioner Carlos Gomes Corduroy Brusher Operator Sandra Kennedy Laundry Worker Iris Giraldo OUR TEAM OF EXPERTS Raissa Isrrael is associated with The [facility] and is an academic medical center. Dr. Skip Le is an attending physician, the circulation supervisor of your care. Listed below are the members of his team: Surgical Oncology Fellow: a physician who completed residency and is obtaining further education. Resident(s): a physician who has finished hr internship and is receiving training in a specialized area (i.e. surgery) Health And Safety Consultant(s): a physician who has completed medical school and is in the 1st year of training Nurse Practitioner (DOT ETCHER): A registered nurse with a master's or doctoral degree who is licensed to practice; Clinic: Carlos Gomes, [facility]: Nayeli Astudillo, [facility], [facility], Kika Colón, [facility], Monica Jackson, [facility] Patient Care Nurse Consultant (PCRM): A registered nurse who coordinates care [...] requests from 8:00 a.m. to 4:30 p.m. [facility] is responsible for answering requests for copies of medical records from various requestors such as insurance companies, hospitals and patients. Please note it can take up to 2 weeks to complete your request. [phone] DISABILITY FORMS This category includes any form [...] for a private room? All rooms at [facility] are private. Do you have a licensed clinical social worker available? A licensed clinical social worker is assigned to our team. How can I help my family plan for my discharge? From the moment a patient is admitted, the [facility] begin to plan for the patient s discharge. Plan to leave at 11am on the day of discharge. Discharge instructions will be given to the patient. The hospital nurse will discuss these with you. Does the [facility] precertify my surgery? Yes. The precertification department at [facility] will notify your insurance carrier. Who should I contact if I anticipate difficulty paying my bill? We want to make sure all patients have access to the quality healthcare services of [facility], and we are committed to working with you and your family to obtain appropriate financial assistance. You may contact the Office of Financial Counseling [phone] weekdays between 8am and 5pm to help determine whether you might qualify for an assistance program. Do I need to bring clothes from home to wear at the hospital? The [facility] will provide you with personal items. You may wish to bring a robe or slippers. Does the [facility] have a designated area for smoking? The [facility] does not permit smoking inside or outside the hospitals including parking areas and sidewalks. If you would like to quit, you can contact a tobacco accounts specialist at [phone] or the [place] Tobacco QUIT LINE at [phone]. Where can I find information about visitation, [...] someone after business hours? The office number, [phone] or [phone], is connected to an answering service after 4:30pm each weekday and on weekends, available 08/02. What number should I call if I have billing questions? Please call [facility] Central Business Office at [phone]. Please Note: In regards to intermediate teacher pain control. You may need narcotic pain [...] call by 4 p.m., please call the [facility] Ambulatory Surgery Unit at . Follow these [...] the hospital. Do not wear makeup, nail bengali or hair pins to the hospital. Please [...] a living will or durable power of trial attorney, please bring a copy of the documents with you. IF YOU USE CPAP BRING YOUR MACHINE WITH YOU TO THE HOSPITAL ALONG WITH THE PRESCRIPTION FOR CPAP PRESSURE LEVELS If you develop any illness, such as a cold, sore throat, cough, or fever, before your surgery, call the [facility] Ambulatory Surgery Unit at and our office [...] pulp Popsicles Ice Soft drinks Gatorade (Lemon [place] preferred) Clear broth or bouillon Jello Coffee [...] not red, orange, or purple in color. Lemon-greenville is preferred. You may need to pour [...] program. You can also get help through: [facility] Tobacco Dependency Clinic, [place] Quit Line, Canadian Lung Association, Canadian Cancer Society, Smokefree.gov website Stop Alcohol Use [...] helpful:Alcoholics Anonymous (AA) http://www.aa.org/ Rethinking Drinking https://www.rethinkingdrinking.[facility].nih.gov/ National [place] of Alcohol Abuse and Alcoholism https://niaaa.nih.gov/ Sasha Head 001-613-1286 -Inpatient, partial hospitalization and outpatient services for [...] Patient Controlled Analgesia (also known as a PREPARING BOX TENDER) A PREPARING BOX TENDER is a pain pump that could be [...] AM of surgery documented in this encounter [facility] 02-19-2022 Miscellaneous Notes Addended by: KARINE GALVAN on: 02/19/2022 04:15 PM Modules accepted: Orders INTESTINAL REFERRAL Let the person providing referral info know that you must speak directly to the patient. Our team cannot proceed with intake without communicating directly with the patient. 1) What is your (the patient's) direct phone contact number?- [phone] 2) What is your referring diagnosis? Appendix [...] resources available to cover travel expenses to [facility]? Yes We are currently flexible in offering initial virtual consultations for both surgery and transplant ONLY to patients living in [place], [place], and [place] through May 18, 2022. This may expand to other states depending on where the surgeon who conducts your initial visit is licensed (Dr. Wyatt is licensed in [place], [place], and [place]). If you are living in another state and desire an initial virtual consultation, you may choose to purchase a Smartvue. (Surgical or transplant evaluations are highly individualized and may be conducted either through your local providers or at the [facility]. The plan for your evaluation will [...] for any pre-surgical testing done at the [facility], and for any post-surgical stay in [place] depending on your post-surgical course. 8) Would you be interested in participating in [facility] Care Online Virtual Visits for the psychosocial screening? - Yes If the patient says no, proceed as normal. If yes, please e-mail the patient and copy the licensed clinical social worker on it. She will [...] have been over the past 1 year? [facility] (Submit ALL template in [facility], AND for transplant patients submit MOST RECENT template) -Where else have you been for surgeries or testing and what years? Where/when was your very first abdominal surgery? Same as above 1st abdominal surgery- 01/2022 (Submit ALL template in [facility]) 10) How many drinks of alcohol do [...] On medication - Psychiatrist (Submit request in [employer]) 15) Do you have a Power of Mineral Ore Processing Labourer (POA)? Do you have a Living Will?- No If so, please bring a copy of this to your appointment. 16) For females: When and where was your last mammogram (40 and up) and pap smear (16 and up)? - Needs to be within last year.- PAP- Never had & Mammo- No (Submit request in [employer]) 17) For all patients: When and where was your last dental visit? - Needs to be within last 6 months.- about 6 months ago (Submit request in [employer]) 18) If transplant- Ask patient to obtain their immunization records and have them sent to us via mail/fax.- COVID- Yes The patient has been entered into Edit, chart is created, and request to [email or web address] for medical records has been generated. Financial clearance has been submitted for rehab/transplant (if on TPN or has dysmotility, submit for both rehab & transplant). Chart will be given to outpatient coordinator. Referral received from Dr. Rodney Olivas from [facility] ([phone]) to Dr. Davies. 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 Will call patient to start intake. documented in this encounter [facility] 12-22-2021 Evaluation note Encounter Date Diagnosis [...] Follow up with primary care provider or instructional design specialist if no improvement of symptoms. 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 [facility] Primary malignant neuroendocrine tumor of appendix Post-operative pain Other acute postoperative pain Primary malignant neuroendocrine tumor of appendix [facility] Diagnosis Primary malignant neuroendocrine tumor of appendix- Primary [facility] Diagnosis Primary malignant neuroendocrine tumor of appendix- Primary [facility] Diagnosis Primary malignant neuroendocrine tumor of appendix [facility] Diagnosis Primary malignant neuroendocrine tumor of appendix [facility] Diagnosis Carcinoid syndrome- Primary SOB (shortness of breath) Shortness of breath Tachycardia Tachycardia, unspecified Antinuclear antibody (HUNTER) titer greater than 1:80 Primary malignant neuroendocrine tumor of appendix [facility] Diagnosis Primary malignant neuroendocrine tumor of appendix [facility] Diagnosis Carcinoid syndrome SOB (shortness of breath) Shortness of breath Tachycardia Tachycardia, unspecified Primary malignant neuroendocrine tumor of appendix [facility] Diagnosis Fibromyalgia muscle pain- Primary Mylagia and myositis, unspecified [facility] Diagnosis Primary malignant neuroendocrine tumor of appendix- Primary [facility] Diagnosis Primary malignant neuroendocrine tumor of appendix [facility] Diagnosis 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 Neoplasm of unspecified nature of digestive system [facility] Diagnosis Third trimester state, incidental [facility] Diagnosis Elevated liver enzymes- Primary Nonspecific elevation of levels of transaminase or lactic acid dehydrogenase (LDH) [facility] - Reported* Type Description Date Medical History chronic depression [employer] Other Reason for referral (narrative)* (Routine) Specialty Diagnoses / Procedures Referred By Contac t Referred To Contact ISRRAEL [address] [place] [address] Referral ID Status Reason Start Date Expiration Date Visits Re quested Visits Authorized * (Routine) - New Request Specialty Diagnoses / Procedures Referred By Contac t Referred To Contact Procedures PLATELET MONITORING PER PROTOCOL Suman Baker MD, PhD [address] [place] [address] Referral ID Status Reason Start Date Expiration Date V isits Requested Visits Authorized [id number] New Request 05/22/2022 06/16/2023 1 1 * (Routine) - New Request Specialty Diagnoses / Procedures Referred By Contac t Referred To Contact Procedures DVT/VTE RISK ASSESSMENT Suman Baker MD, PhD [address] [place] [address] Referral ID Status Reason Start Date Expiration Date V isits Requested Visits Authorized [id number] New Request 05/22/2022 06/16/2023 1 1 * (Routine) - New Request Specialty Diagnoses / Procedures Referred By Contac t Referred To Contact Procedures NO MECHANICAL DVT PROPHYLAXIS Liza Cisneros PA-C [address] [place] [address] Referral ID Status Reason Start Date Expiration Date V isits Requested Visits Authorized [id number] New Request 05/22/2022 06/16/2023 1 1 [facility] for referral (narrative)* Consultation (Routine) - New Request Specialty Diagnoses / Procedures Referred By Contac t Referred To Contact Oncology Diagnoses Primary malignant neuroendocrine tumor of appendix Carlos Gomes T[facility]ET [facility] [address] [place] [address] Andreas Ortega MD, MPH [address] [address] Referral ID Status Reason Start Date Expiration Date V isits Requested Visits Authorized [id number] New Request 06/09/2022 07/04/2023 1 1 * MRI/CAT Scan (Routine) - New Request Specialty Diagnoses / Procedures Referred By Contac t Referred To Contact Diagnoses Primary malignant neuroendocrine tumor of appendix Procedures CT ABDOMEN/PELVIS WITH CONTRAST CHG CT SCAN,ABDOMENT AND PELVIS,W CONTRAST Carlos Gomes [facility] [address] [place] [address] Referral ID Status Reason Start Date Expiration Date V isits Requested Visits Authorized [id number] New Request 06/09/2022 07/04/2023 1 1 [facility] for referral (narrative)* Consultation (Routine) - New Request Specialty Diagnoses / Procedures Referred By Contac t Referred To Contact Genetics Diagnoses Primary malignant neuroendocrine tumor of appendix Yudelka Moralez TICKET SORTER-[employer] STRUCTURAL DESIGN ENGINEER [address] [place] [phone] Erin Stoner C [address] [address] Referral ID Status Reason Start Date Expiration Date V isits Requested Visits Authorized [id number] New Request 07/08/2022 08/02/2023 1 1 * MRI/CAT Scan (Routine) - New Request Specialty Diagnoses / Procedures Referred By Contac t Referred To Contact Diagnoses Primary malignant neuroendocrine tumor of appendix Procedures CT ABDOMEN/PELVIS WITH AND WITHOUT CONTRAST CHG CT SCAN,ABDOMENT AND PELVIS,Andreas Ellis MD, MPH [address] [address] Referral ID Status Reason Start Date Expiration Date V isits Requested Visits Authorized [id number] New Request 07/08/2022 08/02/2023 1 1 * Radiology (Routine) - New Request Specialty Diagnoses / Procedures Referred By Contac t Referred To Contact Diagnoses Primary malignant neuroendocrine tumor of appendix Procedures NUC PET NEUROENDOCRINE CHG NUC THERAPY HYPERTHYROID SUBSEQUENT Yudelka Moralez, TICKET SORTER-AIRCRAFT STRUCTURAL DESIGN ENGINEER [address] [place] [address] Referral ID Status Reason Start Date Expiration Date V isits Requested Visits Authorized [id number] New Request 07/08/2022 08/02/2023 1 1 [facility] for visit Narrative* Auth/Cert Specialty Diagnoses / Procedures Referred By Katharine t Referred To Contact Diagnoses 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 Summary Purpose Family History No Family [...] By Contac t Referred To Contact Diagnoses Elevated liver enzymes Procedures TRANSIENT ELASTOGRAPHY Dolores Johnson, TICKET SORTER-AIRCRAFT STRUCTURAL DESIGN ENGINEER [address] [place] [address] Referral ID Status Reason Start Date Expiration Date V isits Requested Visits Authorized [id number] New Request 11/26/2023 12/20/2024 1 1 Specialty Diagnoses / Procedures Referred By Contac t Referred To Contact Echocardiography Diagnoses Carcinoid syndrome SOB (shortness of breath) Tachycardia Procedures ECHOCARDIOGRAM MS ECHO HEART XTHORACIC,COMPLETE W DOPPLER Yudelka Moralez, TICKET SORTER-AIRCRAFT STRUCTURAL DESIGN ENGINEER [address] [place] [address] Echocardiography [place] [address] [place] [address] Referral ID Status Reason Start Date Expiration Date V isits Requested Visits Authorized [id number] Auth Not Needed 10/07/2022 11/01/2023 1 1 Specialty Diagnoses / Procedures Referred By Contac t Referred To Contact Diagnoses Primary malignant neuroendocrine tumor of appendix Procedures CT NECK WITH CONTRAST MS CT NECK TISSUE CONTRAST Yudelka Moralez, TICKET SORTER-AIRCRAFT STRUCTURAL DESIGN ENGINEER [address] [place] [address] Referral ID Status Reason Start Date Expiration Date V isits Requested Visits Authorized [id number] New Request 10/07/2022 11/01/2023 1 1 Specialty Diagnoses / Procedures Referred By Contac t Referred To Contact Diagnoses Carcinoid syndrome SOB (shortness of breath) Tachycardia Primary malignant neuroendocrine tumor of appendix Procedures CT CHEST WITH CONTRAST CHG DIAGNOSTIC COMPUTED TOMOGRAPHY THORAX W/CONTRAST Yudelka Moralez, TICKET SORTER-AIRCRAFT STRUCTURAL DESIGN ENGINEER [address] [place] [address] Referral ID Status Reason Start Date Expiration Date V isits Requested Visits Authorized [id number] New Request 10/07/2022 11/01/2023 1 1 Specialty Diagnoses / Procedures Referred By Contac t Referred To Contact Oncology Diagnoses Carcinoid syndrome SOB (shortness of breath) Tachycardia Yudelka Moralez [facility] [address] [place] [phone] Referral ID Status Reason Start Date Expiration Date V isits Requested Visits Authorized [id number] New Request 10/07/2022 11/01/2023 1 1 Specialty Diagnoses / Procedures Referred By Contac t Referred To Contact Rheumatology Diagnoses Antinuclear antibody (HUNTER) titer greater than 1:80 Yudelka Moralez, [facility] [address] [place] [address] Referral ID Status Reason Start Date Expiration Date V isits Requested Visits Authorized [id number] New Request 10/07/2022 11/01/2023 1 1 Specialty Diagnoses / Procedures Referred By Contac t Referred To Contact Diagnoses Primary malignant neuroendocrine tumor of appendix Procedures CT ABDOMEN/PELVIS WITH CONTRAST CHG CT SCAN,ABDOMENT AND PELVIS,W CONTRAST Carlos Gomes [facility] [address] [facility] 8th [place] [address] Referral ID Status Reason Start Date Expiration Date Visits Re quested Visits Authorized [id number] Closed 03/19/2022 04/13/2023 1 1 Specialty Diagnoses / Procedures Referred By Contac t Referred To Contact TRANSPLANT Diagnoses Cancer of appendix (HCC) Procedures CONSULT TO TRANSPLANT CENTER EXPLORATORY LAPAROTOMY CELIOTOMY W/WO BIOPSY SPX Vernon Davies MD [address] [place] [address] [facility] [address] [address] Referral ID Status Reason Start Date Expiration Date Visits Requested Visits Authorized [id number] Pending Review Financial Clearance Required - [employer] Payor 02/19/2022 02/19/[phone] Additional Source Comments INFORMATION SOURCE (unrecogn ized section and content) DATE CREATED AUTHOR 02/19/2021 Rohit Haq [facility] DATE CREATED AUTHOR AUTHOR'S ORGANIZ ATION 12/25/2022 [facility] DATE CREATED AUTHOR AUTHOR'S ORGANIZ ATION 09/30/2023 [facility] DATE CREATED AUTHOR AUTHOR'S ORGANIZ ATION 11/13/2023 [facility] EPIC DATE CREATED AUTHOR AUTHOR'S ORGANIZ ATION 12/01/2023 [facility] REASON FOR VISIT (unrecogniz ed section and content) Reason Comments Referral Request Specialty Diagnoses / Procedures Referred By Katharine morales Referred To Contact Diagnoses Primary malignant neuroendocrine tumor of appendix Procedures CT ABDOMEN/PELVIS WITH CONTRAST CHG CT SCAN,ABDOMENT AND PELVIS,W CONTRAST Carlos Gomes, TICKET SORTER-AIRCRAFT STRUCTURAL DESIGN ENGINEER [address] [place] [address] Referral ID Status Reason Start Date Expiration Date Visits Re quested Visits Authorized [id number] Closed 03/19/2022 04/13/2023 1 1 Reason Comments New Patient Specialty Diagnoses / Procedures Referred By Katharine morales Referred To Contact Surgical Oncology Diagnoses New patient - Appendix NET - External: Dr. Timmy Hall - Preferred: Oanh Procedures NEW ISRRAEL SURGERY Self, Self Suman Baker MD, PhD [address] [place] [address] Referral ID Status Reason Start Date Expiration Date Visits Re quested Visits Authorized [id number] Closed 03/19/2022 04/13/2023 1 1 Reason Comments [...] malignant neuroendocrine tumor of appendix Carlos Gomes TICKET SORTER-AIRCRAFT STRUCTURAL DESIGN ENGINEER [address] [place] [address] Andreas Ortega MD, MPH [address] [address] Referral ID Status Reason Start Date Expiration Date V isits Requested Visits Authorized [id number] New Request 06/09/2022 07/04/2023 1 1 Specialty Diagnoses / Procedures Referred By Contac t Referred To Contact Diagnoses Primary malignant neuroendocrine tumor of appendix Procedures NUC PET NEUROENDOCRINE CHG NUC THERAPY HYPERTHYROID SUBSEQUENT Yudelka Moralez, TICKET SORTER-AIRCRAFT STRUCTURAL DESIGN ENGINEER [address] [place] [address] Referral ID Status Reason Start Date Expiration Date Visits Re quested Visits Authorized [id number] Closed 07/08/2022 08/02/2023 1 1 Specialty Diagnoses / Procedures Referred By Contac t Referred To Contact Diagnoses Primary malignant neuroendocrine tumor of appendix Procedures CT ABDOMEN/PELVIS WITH AND WITHOUT CONTRAST CHG CT SCAN,ABDOMENT AND PELVIS,COMBO Andreas Ortega MD, MPH [address] [address] Referral ID Status Reason Start Date Expiration Date Visits Re quested Visits Authorized [id number] Closed 07/08/2022 08/02/2023 1 1 Reason Comments [...] of appendix Procedures CT NECK WITH CONTRAST MS CT NECK TISSUE CONTRAST Yudelka Moralez, TICKET SORTER-AIRCRAFT STRUCTURAL DESIGN ENGINEER [address] [place] Referral ID Status Reason Start Date Expiration Date Visits Re quested Visits Authorized [id number] Closed 10/07/2022 11/01/2023 1 1 Specialty Diagnoses / Procedures Referred By Contac t Referred To Contact Echocardiography Diagnoses Carcinoid syndrome SOB (shortness of breath) Tachycardia Procedures ECHOCARDIOGRAM MS ECHO HEART XTHORACIC,COMPLETE W DOPPLER Yudelka Moralez, TICKET SORTER-AIRCRAFT STRUCTURAL DESIGN ENGINEER [address] [place], [place] Echocardi[facility] [place] [address] [place] [address] Referral ID Status Reason Start Date Expiration Date Visits Re quested Visits Authorized [id number] Closed 10/07/2022 11/01/2023 1 1 Specialty Diagnoses / Procedures Referred By Contac t Referred To Contact Diagnoses Carcinoid syndrome SOB (shortness of breath) Tachycardia Primary malignant neuroendocrine tumor of appendix Procedures CT CHEST WITH CONTRAST CHG DIAGNOSTIC COMPUTED TOMOGRAPHY THORAX W/CONTRAST Yudelka Moralez, TICKET SORTER-AIRCRAFT STRUCTURAL DESIGN ENGINEER [address] [place], [place] Referral ID Status Reason Start Date Expiration Date Visits Re quested Visits Authorized [id number] Closed 10/07/2022 11/01/2023 1 1 Reason Comments New Patient Referred by Dorothy Moralez NP for JR. 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 Joint achy/flu symptoms, tachcardia, + HUNTER. Specialty Diagnoses / Procedures Referred By Contac t Referred To Contact Rheumatology / Hematology & Oncology Procedures NEW PATIENT Andreas Ortega MD, MPH [address] [facility] [place] [place] [address]th [place] [address] Rebekah Suero MD [address] [facility] [address] [place] [address] Referral ID Status Reason Start Date Expiration Date V isits Requested Visits Authorized [id number] New Request 10/22/2022 11/16/2023 1 1 Reason Comments Labs Only Specialty Diagnoses / Procedures Referred By Contac t Referred To Contact Diagnoses 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 Procedures MRI ABDOMEN/PELVIS WITHOUT CONTRAST MS MRI, ABDOMEN (MRI) MS MRI, PELVIS, W/O CONTRAST Yudelka Moralez, TICKET SORTER-AIRCRAFT STRUCTURAL DESIGN ENGINEER [address] [place] [address] Referral ID Status Reason Start Date Expiration Date Visits Re quested Visits Authorized [id number] Closed 03/09/2023 04/02/2024 1 1 Reason Comments Routine Visit Referral ID Status Reason Start Date Expiration Date Visits Re quested Visits Authorized [id number] Closed 04/06/2023 04/30/2024 1 1 Reason Comments New Patient Specialty Diagnoses / Procedures Referred By Contac t Referred To Contact Gastroenterology Diagnoses Hepatomegaly Transaminitis Yudelka Moralez, TICKET SORTER-AIRCRAFT STRUCTURAL DESIGN ENGINEER [address] [place] [address] Referral ID Status Reason Start Date Expiration Date V isits Requested Visits Authorized [id number] Pending Review 11/10/2023 12/04/2024 1 1 Source Comments (unrecognize d section and content) In the event this informatio n is protected by the Federal Confidentiality of Alcohol and Drug Abuse Patient Records regulations: The Federal rules restrict any use of the information to criminally investigate or prosecute any alcohol or drug abuse patient.[facility] Care Teams (unrecognized sec tion and content) Board Turner Relationship Specialty Start Date End Date Erin Sams, RN PCP - General 03/19/22 Rodney Olivas MD [address] [place] [address] Hematology 03/19/22 Board Turner Relationship Specialty Start Date End Date Erin Sams RN PCP - General 03/19/22 Rodney Olivas MD [address] [place] [address] Hematology 03/19/22 Board Turner Relationship Specialty Start Date End Date Erin Sams RN PCP - General 03/19/22 Rodney Olivas MD [address] [place] [address] Hematology 03/19/22 Board Turner Relationship Specialty Start Date End Date Erin Sams RN PCP - General 03/19/22 Rodney Olivas MD [address] [place] [address] Hematology 03/19/22 Board Turner Relationship Specialty Start Date End Date Erin Sams RN PCP - General 03/19/22 Rodney Olivas MD [address] [place] [address] Hematology 03/19/22 Suman Baker MD, PhD [address] [place] [address] Surgeon Surgical Oncology 07/08/22 Board Turner Relationship Specialty Start Date End Date Erin Sams RN PCP - General 03/19/22 Rodney Olivas MD [address] [place] [address] Hematology 03/19/22 Suman Baker MD, PhD [address] [place] [address] Surgeon Surgical Oncology 07/08/22 Board Turner Relationship Specialty Start Date End Date Erin Sams RN PCP - General 03/19/22 Rdoney Olivas MD [address] [place] [address] Hematology 03/19/22 Suman Baker MD, PhD [address] [place] [address] Surgeon Surgical Oncology 07/08/22 Board Turner Relationship Specialty Start Date End Date Erin Sams RN PCP - General 03/19/22 Rodney Olivas MD [facility] [place] [address] Hematology 03/19/22 Suman Baker MD, PhD [address] [place] [address] Surgeon Surgical Oncology 07/08/22 Cheikh Coelho MD [address] [place] [address] Emergency Vehicle Dispatcher Cardiovascular Disease 10/07/22 Board Turner Relationship Specialty Start Date End Date Erin Sams RN PCP - General 03/19/22 Rodney Olivas MD [facility] [place] [address] Hematology 03/19/22 Suman Baker MD, PhD [address] [place] [address] Surgeon Surgical Oncology 07/08/22 Cheikh Coelho MD [address] [place] [address] Emergency Vehicle Dispatcher Cardiovascular Disease 10/07/22 Board Turner Relationship Specialty Start Date End Date Erin Sams RN PCP - General 03/19/22 Rodney Olivas MD [facility] [place] [address] Hematology 03/19/22 Suman Baker MD, PhD [address] [place] [address] Surgeon Surgical Oncology 07/08/22 Cheikh Coelho MD [address] [place] [address] Emergency Vehicle Dispatcher Cardiovascular Disease 10/07/22 Board Turner Relationship Specialty Start Date End Date Erin Sams RN PCP - General 03/19/22 Rodney Olivas MD [address] [place] [address] Hematology 03/19/22 Suman Baker MD, PhD [address] [place] [address] Surgeon Surgical Oncology 07/08/22 Cheikh Coelho MD [address] [place] [address] Emergency Vehicle Dispatcher Cardiovascular Disease 10/07/22 Board Turner Relationship Specialty Start Date End Date Erin Sams RN PCP - General 03/19/22 Rodney Olivas MD [facility] [place] [address] Hematology 03/19/22 Suman Baker MD, PhD [address] [place] [address] Surgeon Surgical Oncology 07/08/22 Cheikh Coelho MD [address] [place] [address] Emergency Vehicle Dispatcher Cardiovascular Disease 10/07/22 Board Turner Relationship Specialty Start Date End Date Erin Sams CNP [address] [place] [id number] PCP - General 03/10/23 Rodney Olivas MD [facility] [place] [address] Hematology 03/19/22 Suman Baker MD, PhD [address] [place] [address] Surgeon Surgical Oncology 07/08/22 Cheikh Coelho MD [address] [place] [address] Emergency Vehicle Dispatcher Cardiovascular Disease 10/07/22 Board Turner Relationship Specialty Start Date End Date Erin Sams AIRCRAFT STRUCTURAL DESIGN ENGINEER [address] [place] [address] PCP - General 03/10/23 Rodney Olivas MD [address] [place] [address] Hematology 03/19/22 Suman Baker MD, PhD [address] [place] [address] Surgeon Surgical Oncology 07/08/22 Cheikh Coelho MD [address] [place] [address] Emergency Vehicle Dispatcher Cardiovascular Disease 10/07/22 Board Turner Relationship Specialty Start Date End Date Erin Sams AIRCRAFT STRUCTURAL DESIGN ENGINEER [address] [place] [address] PCP - General 03/10/23 Rodney Olivas MD [address] [place] [address] Hematology 03/19/22 Suman Baker MD, PhD [address] [place] [address] Surgeon Surgical Oncology 07/08/22 Cheikh Coelho MD [address] [place] [address] Emergency Vehicle Dispatcher Cardiovascular Disease 10/07/22 Andreas Ortega MD, MPH [address] [place] [address] Oncologist Medical Oncology 03/31/23 Ron Ruano DO [address] [facility] [address] [facility] [place] [address] Obstetrics & Gynecology 04/06/23 Board Turner Relationship Specialty Start Date End Date Erin Sams, AIRCRAFT [employer]URAL DESIGN ENGINEER [address] [place] [address] PCP - General 03/10/23 Rodney Olivas MD [address] [place] [address] Hematology 03/19/22 Suman Baker MD, PhD [address] [place] [address] Surgeon Surgical Oncology 07/08/22 Cheikh Coelho MD [address] [place] [address] Emergency Vehicle Dispatcher Cardiovascular Disease 10/07/22 Andreas Ortega MD, MPH [address] [facility] [place] [address] Oncologist Medical Oncology 03/31/23 Ron Ruano DO [address] [facility] [address] [place] [address] Obstetrics & Gynecology 04/06/23 Scheduled Active and Recently Administ ered Medications (unrecognized section and content) Medication Order 05/27/2022 05/28/2022 05/29/2022 acetaminophen (TYLENOL) tablet 975 mg 975 mg, Oral, EVERY 8 HOURS, First dose on Wed05/26/22 at 1615, Until Discontinued, Maximum dose of acetaminophen is 4000 mg from all sources in 24 hours. 0700 (Given - Provider: Yadira Grier, RUPERT)1350 (Given - Provider: Alena Wade, RUPERT)2040 (Given - Provider: Craig Pagan, RUPERT) 0603 (Given - Provider: Craig Pagan, RUPERT)1213 (Given - Provider: Yvrose Chamberlain, RUPERT)2134 (Given - Provider: Craig Pagan, RUPERT) 0613 [...] RN)0708 (Rate/Dose Verify - Provider: Alena Wade, RN)0709 (Rate/Dose Verify - Provider: Alena Wade [...] dose on 05/27/22 at 0900, Until Discontinued 09 (Given - [...] Verify - Provider: Yadira Grier RN)0659 (Epidural [place] Volume/Shift Total - Provider: Yadira Grier RN - Comment: shift total: 175 ml remaining)1105 (Rate/Dose Verify - Provider: Alena Wade RN)1122 (Rate/Dose Verify - Provider: Alena Wade RN)1459 (Rate/Dose Verify - Provider: Alena Wade RN)1555 (Rate/Dose Verify - Provider: Alena Wade, RN)1848 (Rate/Dose Verify - Provider: Alena Wade, RN)1849 (Rate/Dose Verify - Provider: Alena Wade, RN)1910 (Epidural [place] Volume/Shift Total - Provider: Alena Wade RN - Comment: 100mL left in cartridge) 0100 (Epidural [place] Volume/Shift Total - Provider: Craig Pagan RN [...] Chamberlain RN)1731 (Given - Provider: Tania Louis RN)213 (Given - Provider: Craig Pagan RN) 0425 [...] Craig Pagan RN)2003 (Restarted - Provider: Craig Pgaan RN)2036 (Stopped - Provider: Craig Pagan RN)2038 [...] BE BASED ON THE PRIMARY CLINICAL RECORDS. [facility] [employer] [facility]. provides no warranty or guarantee of the accuracy or completeness of information in this document.
[2023-12-02 17:24] LABS: Alanine Aminotransferase 93 U/L (14-59); Albumin Globulin Ratio 1.2; Alkaline Phosphatase 87 U/L (46-116); Aspartate Amino Transferase 38 U/L (15-37); Bilirubin Direct 0.1 mg/dL (0.0-0.2); Bilirubin Total 0.5 mg/dL (0.2-1.0); Globulin 3.3 g/dL; Total Protein 7.3 g/dL (6.4-8.2)
== END 2023-12-02 16:40 | disposition home or self-care (01) ==
LOC: LAB 16:39
PROVIDERS: PCP Nurse Practitioner Family
DX: R19.7 Diarrhea, unspecified (principal); C7A.8 Other malignant neuroendocrine tumors
CPT/HCPCS: 36415; 80076; 87045; 87046; 87177; 87209; 87427; 87493

== ENCOUNTER 2023-12-02 17:35 | Outpatient (REF) | payer OTHER, SELFPAY ==
[2023-12-03 15:12] LABS: C. Difficile PCR NEGATIVE (NEGATIVE)
== END 2023-12-02 17:36 | disposition home or self-care (01) ==
LOC: LAB 17:35
PROVIDERS: PCP Nurse Practitioner Family; Visit Provider Nurse Practitioner Acute Care
DX: R19.7 Diarrhea, unspecified (principal)
CPT/HCPCS: 87045; 87046; 87177; 87209; 87427; 87493

== ENCOUNTER 2023-12-10 07:38 | Outpatient (RCR) | payer OTHER, SELFPAY | END 2023-12-17 23:59 | disposition home or self-care (01) | LOC: INF 07:38 | PROVIDERS: PCP Nurse Practitioner Family | DX: E34.0 Carcinoid syndrome (principal); C71.8 Malignant neoplasm of overlapping sites of brain ==

== ENCOUNTER 2023-12-21 12:49 | Outpatient (OUT) | payer OTHER, SELFPAY ==
--- NOTE | 2023-12-21 | CT_ITS ---
The [address] [address] Patient Name: KRYS MARTINEZ MRN: [id number] date: 1995 Sex: F Assigned Patient Location: CT Current Patient Location: Accession/Order Number: [id number] Exam Date: 12/21/2023 14:10 Report Date: 12/22/2023 07:11 At the request of: ELOISE SAMS Procedure: CT abdomen pelvis w con EXAM: CT abdomen pelvis w con HISTORY: ABDOMINAL PAIN R10.9 COMPARISON: CT chest 02/20/2023 TECHNIQUE: Following intravenous administration of 100 cc of Omnipaque 300, axial soft tissue windows of the abdomen and pelvis were performed and sagittal reformats. CT dose reduction technique was used including Automated Exposure Control. Findings: Stable left lower lobe nodule. ABDOMEN: The liver, spleen, pancreas, adrenal glands and kidneys are unremarkable. The visualized portions of the bilateral ureters are nondilated. There are postsurgical changes consistent with partial small bowel resection and right hemicolectomy. Sigmoid wall thickening. No bowel obstruction. The aorta is normal caliber. No enlarged abdominal lymph nodes or free abdominal fluid. Small fat-containing umbilicus hernia. Pelvis: Unremarkable bladder. The uterus is present and retroverted. There is either endometrial thickening or fluid within the endometrial canal. No enlarged pelvic lymph nodes or free pelvic fluid. No aggressive sclerotic or lytic osseous lesions. CT/CT abdomen pelvis w con IMPRESSION: 1. Postsurgical changes consistent with partial small bowel resection and right hemicolectomy. Sigmoid wall thickening may relate to lack of distention given the absence of oral contrast within this region. A mild colitis is possible but felt to be less likely. Electronically authenticated by: ISRRAEL SANCHEZ Date: 12/22/2023 07:11
== END 2023-12-21 12:50 | disposition home or self-care (01) ==
LOC: CT 12:49
PROVIDERS: PCP Nurse Practitioner Family; Visit Provider Nurse Practitioner Family
DX: R10.9 Unspecified abdominal pain (principal); R91.1 Solitary pulmonary nodule
CPT/HCPCS: 74177; Q9967

== ENCOUNTER 2023-12-22 17:26 | Outpatient (OUT) | payer OTHER, SELFPAY ==
--- NOTE | 2023-12-22 17:28 | US_ITS ---
The [address] [address] Patient Name: KRYS MARTINEZ MRN: [id number] date: 1995 Sex: F Assigned Patient Location: [place] Current Patient Location: [facility] Accession/Order Number: [id number] Exam Date: 12/22/2023 17:34 Report Date: 12/24/2023 08:10 At the request of: LIZBET CAST Procedure: US thyroid EXAMINATION: US thyroid HISTORY: Enlarged thyroid E04.9 COMPARISON: No relevant comparison available. FINDINGS: RIGHT LOBE: Normal size and echotexture. Lobe size: 4.6 x 1.1 x 1.6 cm LEFT LOBE: 2 incidental tiny colloid cysts. Lobe size: 4.2 x 1.1 x 1.6 cm ISTHMUS: Normal size and echotexture. Thickness: 2 mm US/US thyroid IMPRESSION: 1. No enlargement or suspicious findings of the thyroid gland. Electronically authenticated by: CAROLYN WALSH Date: 12/24/2023 08:10
--- OUTSIDE RECORDS SUMMARY | 2023-12-22 17:35 | XMS_ITS | CCD ---
Author Organization [facility] Care Team Providers Care Obstetrician And Gynaecologist Name Role Phone Ava Lundberg Unavailable Unavailable Primary Care Provider Unavailemanuel Sams RN, Erin Primary Care Provider Unavaildevon Olivas MD, Rodney Unavailable Latrell EMERY, Erin Primary Care Provider Unavaildevon Olivas MD, Rodney Unavailable Samuel DUPONT, PhD, Suman Dayday Unavailable Cheikh Coelho MD Unavailable ERIN SAMS Primary Care Unavailable ISABEL ., DR TIMMY Sibley Admitting Unavaila ora HALL ., DR TIMMY Sibley Consulting Unavaila ora HALL ., DR TIMMY Sibley Attending Unavaildevon SAMS, ERIN Primary Care Unavailable ERIN SAMS [...] LATRELL, ERIN Primary Care Unavailable MISC, DR JCAOBO Admitting Unavailable MISC, DR JACOBO Consulting Unavailable [...] Unavaila ble LATRELL, ERIN Primary Care Unavailable JEAN CARLOS, FROYLAN Consulting Unavailable CITLALY, CHEIKH Consulting Unavailable LATRELL, ERIN Primary Care Unavailable [...] ERIN Admitting Unavailable Deisy DUPONT, Rodney Unavailable Samuel DUPONT, PhD, Suman C Unavailable [phone] Cheikh Coelho MD Unavailable Latrell BIANCHI, Erin S Primary Care Provider Unavailable Primary Care Provider UnavailRon Burciaga Attending Unavailable Ron Ruano Admitting Unavailable Samuel DUPONT, PhD, Suman C Unavailable Jordan DUPONT, MPH, Andreas Unavailable Ron Ruano DO Unavailable ALDEN, RON Attending Unavailable SERENE, LIZBET Attending Unavailable ALDEN, RON Attending Unavailable ALDEN, RON Attending Unavailable ALDEN, RON Attending Unavailable ALDEN, RON Attending Unavailable ALDEN, RON Attending Unavailable SERENE, LIZBET Attending Unavailable SERENE, LIZBET Attending Unavailable SELF, SELF Referring Unavailable MORALEZ, YE Attending Unavailable LATRELL, ERIN S Primary Care Unavailable SELF, SELF Referring Unavailable LATRELL, ERIN S Primary Care Unavailable MORALEZ, YE Referring Unavailable LATRELL, ERIN S Primary Care Unavailable MORALEZ, YE Referring Unavailable LATRELL, ERIN S Primary Care Unavailable JORDAN, ANDREAS Attending Unavailable JORDAN, ANDREAS Referring Unavailable LATRELL, ERIN Primary Care Unavailable FARSHAD VIGIL Attending Unavailable JORDAN, ANDREAS Referring Unavailable LATRELL, ERIN S Primary Care Unavailable SUMAN BAKER Attending Unavailable SAMUEL, SUMAN Naylor Referring Unavailable LATRELL, ERIN S Primary Care Unavailable SUMAN BAKER Attending Unavailable SELF, SELF Referring Unavailable LATRELL, ERIN S Primary Care Unavailable JORDAN, ANDREAS Attending Unavailable JORDAN, ANDREAS Referring Unavailable LATRELL, ERIN S Primary Care Unavailable LATRELL, ERIN Primary Care Unavailable JORDAN, ANDREAS Referring Unavailable JORDAN, ANDREAS Attending Unavailable LATRELL, ERIN S Primary Care Unavailable JORDAN, ANDREAS Referring Unavailable JORDAN, ANDREAS Attending Unavailable LATRELL, ERIN S Primary Care Unavailable Allergies Allergy Classification Reported Allergen(s) Allergy Type Date of Onset Reaction(s) Facility (12 sources) gabapentin Drug Allergy 3 Nausea Only, Diarrhea [facility] (1 source) metroNIDAZOLE Drug Allergy 4 [facility] Medications Current Medications Medication Drug Class(es) Dates Sig (Normalized) Sig (Original) amylase 680207 unt / lipase 06185 unt / protease [id number] unt delayed release oral capsule (9 sources) Start: 11-22-2023 Pancrelipase, Ixq-Gpdv-Ozxw, (Creon) 83808-433601 units Cap DR Particles Please take one cap with each meal, and one cap with each snack. 120 capsule 11/22/2023 Active Start: 09-10-2022 Pancrelipase, Xic-Tysk-Avhm, (Creon) 55642-439126 units Cap DR Particles Indications: Exocrine pancreatic [...] by mouth in the morning. 30 capsule 08/17/2023 08/16/2024 Active Start: 05-25-2022 End: 06-09-2022 [...] Mild Pain. 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 In the context of a normal zento-2-bowwwaocevx concentration, this is consistent with an MM phenotype. ADDITIONAL INFORMATION Method: Isoelectric Focusing, This assay identifies the phenotype of the circulating ehvkt-7-chedvsynxcw (A1A) protein. If the patient is on replacement therapy or has been recently transfused, the phenotype will detect patient and replacement or transfused plasma A1A protein. This test also cannot detect a null allele which could be responsible for an A1A deficiency. Performed By: #### Y A1ATP #### [facility] (DEFAULT) [address] [place] [address] 80915 Amdei-3-Kalyqgllrdl S Allele 120 mg/dL Normal 100-190 [facility] Comment on above: Result Comment: ADDITIONAL INFORMATION Method: Nephelometry Test Performed by: [facility] [address] [place] [address] Rn Complex Care: Ed Russo M.D. Ph.D.; CLIA# [id number] Performed By: #### Y A1ATP #### [facility] (DEFAULT) [address] [place] [address] 88671 HUNTER SCREEN IFAon 11-26-2023 Anti Nuclear Antibody Pattern Homogenous/Diffuse Normal [facility] Comment on above: Performed By: #### WILNER Persaud MA, ELLA #### [facility] (DEFAULT) [address] [place] [address] 13469 Antinuclear Antibody, IFA Positive Abnormal Negative [facility] Comment on above: Performed By: #### WILNER Persaud MA, ELLA #### [facility] (DEFAULT) [address] [place] [address] 29748 Quant Antinuclear Antibody 1:80 Abnormal (none) [facility] Comment on above: Performed By: #### WILNER Persaud MA, ELLA #### [facility] (DEFAULT) [address] [address] ANTI MITOCHONDRIAL ANTIBODYo n 11-26-2023 Anti-Mitochondrial Antibody Negative Normal Negative [facility] Comment on above: Performed By: #### WILNER Persaud MA, ELLA #### [facility] (DEFAULT) [address] [place] [address] 76036 ANTI SMOOTH MUSCLE ANTIBODYo n 11-26-2023 Smooth Muscle Antibody Negative Normal Negative [facility] Comment on above: Performed By: #### WILNER Persaud MA, ELLA #### [facility] (DEFAULT) [address] [place] [address] 43219 CBC AND ELECTRONIC DIFFon Basophils (Bld) [#/Vol] 0.05 10*3/uL Normal 0.00-0.15 [facility] Comment on above: Performed By: #### L AB980 #### [facility] (DEFAULT) [address] [place] [address] 91656 Basophils/100 WBC (Bld) 0.6 % Normal [facility] Comment on above: Performed By: #### L AB980 #### [facility] (DEFAULT) [address] [address] DIFF STATUS Electronic Differential Normal [facility] Comment on above: Performed By: #### L AB980 #### [facility] (DEFAULT) [address] [address] Eosinophils (Bld) [#/Vol] 0.15 10*3/uL Normal 0.00-0.42 [facility] Comment on above: Performed By: #### L AB980 #### [facility] (DEFAULT) [address] [address] Eosinophils/100 WBC (Bld) 1.9 % Normal [facility] Comment on above: Performed By: #### L AB980 #### [facility] (DEFAULT) [address] [address] Hematocrit (Bld) [Volume fraction] 42.6 % Normal 34.9-44.3 [facility] Comment on above: Performed By: #### L AB980 #### [facility] (DEFAULT) [address] [address] Hemoglobin (Bld) [Mass/Vol] 13.6 g/dL Normal 11.4-15.2 [facility] Comment on above: Performed By: #### L AB980 #### [facility] (DEFAULT) [address] [address] Immature Grans % 0.5 % Normal [facility] Comment on above: Performed By: #### L AB980 #### [facility] (DEFAULT) [address] [address] Immature Grans Absolute 0.04 K/uL Normal <=0.08 [facility] Comment on above: Performed By: #### L AB980 #### [facility] (DEFAULT) [address] [address] Lymphocytes (Bld) [#/Vol] 2.06 10*3/uL Normal 1.16-3.51 [facility] Comment on above: Performed By: #### L AB980 #### [facility] (DEFAULT) [address] [address] Lymphocytes/100 WBC (Bld) 25.8 % Normal [facility] Comment on above: Performed By: #### L AB980 #### [facility] (DEFAULT) [address] [address] MCV (RBC) [Entitic vol] 88.9 fL Normal 79.6-97.7 [facility] Comment on above: Performed By: #### L AB980 #### [facility] (DEFAULT) [address] [address] Mean Cell Hgb 28.4 pg Normal 25.9-33.9 [facility] Comment on above: Performed By: #### L AB980 #### [facility] (DEFAULT) [address] [address] Mean Cell Hgb Conc 31.9 g/dL Normal 31.4-35.9 [facility] Comment on above: Performed By: #### L AB980 #### [facility] (DEFAULT) [address] [address] Monocytes (Bld) [#/Vol] 0.40 10*3/uL Normal 0.22-0.87 [facility] Comment on above: Performed By: #### L AB980 #### [facility] (DEFAULT) [address] [address] Monocytes/100 WBC (Bld) 5.0 % Normal [facility] Comment on above: Performed By: #### L AB980 #### [facility] (DEFAULT) [address] [address] Nucleated RBC 0.0 /100 WBC Normal <=0.2 [facility] Comment on above: Performed By: #### L AB980 #### [facility] (DEFAULT) [address] [address] Platelet mean volume (Bld) [Entitic vol] 10.2 fL Normal 8.5-12.2 [facility] Comment on above: Performed By: #### L AB980 #### [facility] (DEFAULT) [address] [place] [address] 05979 Platelets (Bld) [#/Vol] 379 10*3/uL Normal 150-393 [facility] Comment on above: Performed By: #### L AB980 #### [facility] (DEFAULT) [address] [place] [address] 03549 RBC (Bld) [#/Vol] 4.79 10*6/uL Normal 3.91-5.04 [facility] Comment on above: Performed By: #### L AB980 #### [facility] (DEFAULT) [address] [place] [address] 48038 RBC Distribution 12.8 % Normal 10.8-14.9 [facility] Comment on above: Performed By: #### L AB980 #### [facility] (DEFAULT) [address] [place] [address] 41947 Segs + Bands Auto 66.2 % Normal [facility] Comment on above: Performed By: #### L AB980 #### [facility] (DEFAULT) [address] [place] [address] 8[address]33 Segs + Bands,Absolute Auto 5.27 K/uL Normal 1.64-7.28 [facility] Comment on above: Performed By: #### L AB980 #### [facility] (DEFAULT) [address] [place] [address]31 WBC (Bld) [#/Vol] 7.97 10*3/uL Normal 3.99-11.19 [facility] Comment on above: Performed By: #### L AB980 #### [facility] (DEFAULT) [address] [place] [address] 76197 CERULOPLASMINon 11-26-2023 Ceruloplasmin [Mass/Vol] 31 mg/dL 20 - 60 mg/dL [facility] Ceruloplasmin 31 mg/dL Normal 20-60 [facility] Comment on above: Performed By: #### Y A1ATP #### [facility] (DEFAULT) [address] [place] [address] 73684 CHEM 7 (LYTES,BUN,CREA,GLUC) on 11-26-2023 Anion gap [Moles/Vol] 17 mmol/L 7 - 17 mmol/L [facility] Chloride [Moles/Vol] 102 mmol/L 98 - 10 8 mmol/L [facility] CO2 [Moles/Vol] 26 mmol/L 21 - 31 mmol/L [facility] Creatinine [Mass/Vol] 0.55 mg/dL 0.50 - 1.20 mg/dL [facility] eGFR, CKD-EPI, Female - PINF [facility] Comment on above: Reported eGFR is bas ed on the CKD-EPI 2020 equation using creatinine, age, and sex. Glucose [Mass/Vol] 123 mg/dL High 70 - 99 mg/dL [facility] Osmolality Calc [Osmolality] 294 [facility] Potassium [Moles/Vol] 3.8 mmol/L 3.5 - 5.0 mmol/L [facility] Sodium [Moles/Vol] 141 mmol/L 135 - 145 mmol/L [facility] Urea nitrogen [Mass/Vol] 7 mg/dL 7 - 25 mg/dL [facility] Urea nitrogen/Creatinine [Mass ratio] 13 mg/mg [facility] Anion gap [Moles/Vol] 17 mmol/L Normal 7-17 [facility] Comment on above: Performed By: #### Y A1ATP #### [facility] (DEFAULT) [address] [place] [address] 17998 Chloride [Moles/Vol] 102 mmol/L Normal 98-108 [facility] Comment on above: Performed By: #### Y A1ATP #### [facility] (DEFAULT) [address] [place] [address] CO2 [Moles/Vol] 26 mmol/L Normal 21-31 [facility] Comment on above: Performed By: #### Y A1ATP #### [facility] (DEFAULT) [address] [place] [address] 12984 Creatinine [Mass/Vol] 0.55 mg/dL Normal 0.50-1.20 [facility] Comment on above: Performed By: #### Y A1ATP #### [facility] (DEFAULT) [address] [place] [address] 07151 eGFR, CKD-EPI, Female > Normal >=60 [facility] Comment on above: Result Comment: Repo rted eGFR is based on the CKD-EPI 2020 equation using creatinine, age, and sex. Performed By: #### Y A1ATP #### [facility] (DEFAULT) [address] [place] [address] 76018 Glucose [Mass/Vol] 123 mg/dL High 70-99 [facility] Comment on above: Performed By: #### Y A1ATP #### [facility] (DEFAULT) [address] [place] [address] 36639 Osmolality [Osmolality] 294 mosm/kg Normal 278-305 [facility] Comment on above: Performed By: #### Y A1ATP #### [facility] (DEFAULT) [address] [place] [address] 04502 Potassium [Moles/Vol] 3.8 mmol/L Normal 3.5-5.0 [facility] Comment on above: Performed By: #### Y A1ATP #### [facility] (DEFAULT) [address] [place] [address] 08995 Sodium [Moles/Vol] 141 mmol/L Normal 135-145 [facility] Comment on above: Performed By: #### Y A1ATP #### [facility] (DEFAULT) [address] [place] [address] 99372 Urea nitrogen [Mass/Vol] 7 mg/dL Normal 7-25 [facility] Comment on above: Performed By: #### Y A1ATP #### [facility] (DEFAULT) [address] [place] [address] 94221 Urea nitrogen/Creatinine [Mass ratio] 13 mg/mg Normal [facility] Comment on above: Performed By: #### Y A1ATP #### [facility] (DEFAULT) [address] [place] [address] 9[address]34 FERRITINon 11-26-2023 Ferritin [Mass/Vol] 26.5 ng/mL 7.3 - 27 0.7 ng/mL [facility] Interpretation and review of laboratory results Normal [facility] Ferritin [Mass/Vol] 26.5 ng/mL Normal 7.3-270.7 [facility] Comment on above: Performed By: #### Y TT #### [facility] (DEFAULT) [address] [place] [address]648 HEPATIC FUNCTION PANELon Albumin [Mass/Vol] 4.7 g/dL 3.5 - 5.0 g/dL [facility] ALP [Catalytic activity/Vol] 67 U/L 32 - 126 U/L [facility] ALT [Catalytic activity/Vol] 68 U/L High 9 - 48 U/L [facility] AST [Catalytic activity/Vol] 42 U/L High 10 - 39 U/L [facility] Bilirubin [Mass/Vol] 0.5 mg/dL NINF - 1.5 mg/dL [facility] Bilirubin.direct [Mass/Vol] 0.1 mg/dL NINF - 0.3 mg/dL [facility] Protein [Mass/Vol] 7.4 g/dL 6.4 - 8.3 g/dL [facility] Albumin [Mass/Vol] 4.7 g/dL Normal 3.5-5.0 [facility] Comment on above: Performed By: #### Y A1ATP #### [facility] (DEFAULT) [address] [place] [address]43 ALP [Catalytic activity/Vol] 67 U/L Normal 32-126 [facility] Comment on above: Performed By: #### Y A1ATP #### [facility] (DEFAULT) [address] [place] [address] 74827 ALT [Catalytic activity/Vol] 68 U/L High 9-48 [facility] Comment on above: Performed By: #### Y A1ATP #### [facility] (DEFAULT) [address] [place] [address] 29379 AST [Catalytic activity/Vol] 42 U/L High 10-39 [facility] Comment on above: Performed By: #### Y A1ATP #### [facility] (DEFAULT) [address] [place] [address] 49220 Bilirubin [Mass/Vol] 0.5 mg/dL Normal <1.5 [facility] Comment on above: Performed By: #### Y A1ATP #### [facility] (DEFAULT) [address] [address] Bilirubin.indirect [Mass/Vol] 0.1 mg/dL Normal <0.3 [facility] Comment on above: Performed By: #### Y A1ATP #### [facility] (DEFAULT) [address] [place] [address] 85688 Protein [Mass/Vol] 7.4 g/dL Normal 6.4-8.3 [facility] Comment on above: Performed By: #### Y A1ATP #### [facility] (DEFAULT) [address] [place] [address] 93795 IMMUNOFIXATION SERUMon 11-25 REVIEWED BY: Timmy Morel MD Normal [facility] Comment on above: Performed By: #### Y TT #### [facility] (DEFAULT) [address] [place] [address] 26651 Serum Immunofixation No definitive monoclonal protein is identified. Normal [facility] Comment on above: Performed By: #### Y TT #### [facility] (DEFAULT) [address] [place] [address]246 IMMUNOGLOBULINS IGG IGA IGMo n 11-26-2023 IgA [Mass/Vol] 179 mg/dL Normal 66-433 [facility] Comment on above: Performed By: #### Y TT #### [facility] (DEFAULT) [address] [place] [address] 98553 IgG [Mass/Vol] 847 mg/dL Normal 600-1714 [facility] Comment on above: Performed By: #### Y TT #### [facility] (DEFAULT) [address] [place] [address] 44634 IgM [Mass/Vol] 138 mg/dL Normal 45-281 [facility] Comment on above: Performed By: #### Y TT #### [facility] (DEFAULT) [address] [place] [address]117 IRON/IRON BINDING/TRANSFERRI Non 11-26-2023 Interpretation and review of laboratory results Normal [facility] Iron [Mass/Vol] 79 ug/dL [facility] Iron binding capacity [Mass/Vol] 346 [facility] Iron saturation [Mass fraction] 23 % 20 - 55 % [facility] Transferrin [Mass/Vol] 277 mg/dL 200 - 400 mg/dL [facility] Iron [Mass/Vol] 79 ug/dL Normal 40-174 [facility] Comment on above: Performed By: #### Y A1ATP #### [facility] (DEFAULT) [address] [place] [address]16 Iron Saturation 23 % Normal 20-55 [facility] Comment on above: Performed By: #### Y A1ATP #### [facility] (DEFAULT) [address] [place] [address] 09513 Total Iron Binding Capacity 346 mcg/dL Normal 250-425 [facility] Comment on above: Performed By: #### Y A1ATP #### [facility] (DEFAULT) [address] [place] [address]13 Transferrin [Mass/Vol] 277 mg/dL Normal 200-400 [facility] Comment on above: Performed By: #### Y A1ATP #### [facility] (DEFAULT) [address] [place] [address] 16394 No Panel Informationon 11-25 Interpretation and review of laboratory results [facility] results Normal [facility] PROTEIN ELECTROPHORESISon Albumin [Mass/Vol] 4.6 g/dL Normal 3.5-5.0 [facility] Comment on above: Performed By: #### Y TT #### [facility] (DEFAULT) [address] [place] [address]26 Alpha 1 0.3 g/dL Normal 0.2-0.4 [facility] Comment on above: Performed By: #### Y TT #### [facility] (DEFAULT) [address] [address] Alpha 2 0.8 g/dL Normal 0.5-1.0 [facility] Comment on above: Performed By: #### Y TT #### [facility] (DEFAULT) [address] [place] [address] 07338 Beta 0.9 g/dL Normal 0.5-1.1 [facility] Comment on above: Performed By: #### Y TT #### [facility] (DEFAULT) [address] [place] [address] 51881 Gamma 0.8 g/dL Normal 0.6-1.5 [facility] Comment on above: Performed By: #### Y TT #### [facility] (DEFAULT) [address] [place] [address] 81980 Interpretation By: Timmy Morel MD Normal [facility] Comment on above: Performed By: #### Y TT #### [facility] (DEFAULT) [address] [place] [address] 49339 Spe Interpretation Normal serum protein electrophoresis pattern. Normal [facility] Comment on above: Performed By: #### Y TT #### [facility] (DEFAULT) [address] [place] [address] 36889 PROTIME-INRon 11-26-2023 INR Coag (Bld) [Relative time] 1.0 {INR} 0.9 - 1.1 [facility] Interpretation and review of laboratory results Normal [facility] PT Coag (PPP) [Time] 13.4 s [facility] INR Coag (PPP) [Relative time] 1.0 {INR} Normal 0.9-1.1 [facility] Comment on above: Performed By: #### P TI #### [facility] (DEFAULT) [address] [place] [address] 53183 PT Coag (PPP) [Time] 13.4 s Normal 11.9-14.2 [facility] Comment on above: Performed By: #### P TI #### [facility] (DEFAULT) [address] [place] [address] 44040 SPE SERUM TOTAL PROTEINon Protein [Mass/Vol] 7.3 g/dL Normal 6.4-8.3 [facility] Comment on above: Performed By: #### Y TT #### [facility] (DEFAULT) [address] [place] [address] 26373 T-TRANSGLUTAMINASE IGG/IGA, ABon 11-26-2023 T-TRANSGLUTAMINASE IGA AB <1.2 Normal <4.0 (Negative) [facility] Comment on above: Performed By: #### Y TT #### [facility] (DEFAULT) [address] [place] [address] 20044 Tissue Transglutaminase, IgG 2.4 U/mL Normal <6.0 (Negative) [facility] Comment on above: Result Comment: Test Performed by: [facility] [address] [place] [address] Rn Complex Care: Ed Russo M.D. Ph.D.; CLIA# [id number] Performed By: #### Y TT #### [facility] (DEFAULT) [address] [place] [address] 58869 TSHon 11-26-2023 Interpretation and review of laboratory results Normal [facility] TSH Qn 1.315 m[IU]/L [facility] TSH 1.315 uIU/mL Normal 0.550-4.780 [facility] Comment on above: Performed By: #### Y TT #### [facility] (DEFAULT) [address] [place] [address] CT ABDOMEN/PELVIS WITH AND W ITHOUT CONTRASTon [...] error, please notify the sender immediately at [phone] and permanently delete the original report and destroy any copies or printouts. Normal [facility] CBC AND ELECTRONIC DIFFon Basophils (Bld) [#/Vol] 0.05 10*3/uL Normal 0.00-0.15 [facility] Comment on above: Performed By: #### L AB980 #### [facility] (DEFAULT) [address] [address] Basophils/100 WBC (Bld) 0.6 % Normal [facility] Comment on above: Performed By: #### L AB980 #### [facility] (DEFAULT) [address] [place] [address] 04036 DIFF STATUS Electronic Differential Normal [facility] Comment on above: Performed By: #### L AB980 #### [facility] (DEFAULT) [address] [place] [address]337 Eosinophils (Bld) [#/Vol] 0.19 10*3/uL Normal 0.00-0.42 [facility] Comment on above: Performed By: #### L AB980 #### [facility] (DEFAULT) [address] [address] Eosinophils/100 WBC (Bld) 2.3 % Normal [facility] Comment on above: Performed By: #### L AB980 #### [facility] (DEFAULT) [address] [address] Hematocrit (Bld) [Volume fraction] 41.9 % Normal 34.9-44.3 [facility] Comment on above: Performed By: #### L AB980 #### [facility] (DEFAULT) [address] [address] Hemoglobin (Bld) [Mass/Vol] 13.5 g/dL Normal 11.4-15.2 [facility] Comment on above: Performed By: #### L AB980 #### [facility] (DEFAULT) [address] [address] Immature Grans % 0.2 % Normal [facility] Comment on above: Performed By: #### L AB980 #### [facility] (DEFAULT) [address] [address] Immature Grans Absolute < Normal <=0.08 [facility] Comment on above: Performed By: #### L AB980 #### [facility] (DEFAULT) [address] [address] Lymphocytes (Bld) [#/Vol] 2.07 10*3/uL Normal 1.16-3.51 [facility] Comment on above: Performed By: #### L AB980 #### [facility] (DEFAULT) [address] [address] Lymphocytes/100 WBC (Bld) 25.6 % Normal [facility] Comment on above: Performed By: #### L AB980 #### [facility] (DEFAULT) [address] [address] MCV (RBC) [Entitic vol] 86.9 fL Normal 79.6-97.7 [facility] Comment on above: Performed By: #### L AB980 #### [facility] (DEFAULT) [address] [address] Mean Cell Hgb 28.0 pg Normal 25.9-33.9 [facility] Comment on above: Performed By: #### L AB980 #### [facility] (DEFAULT) [address] [address] Mean Cell Hgb Conc 32.2 g/dL Normal 31.4-35.9 [facility] Comment on above: Performed By: #### L AB980 #### [facility] (DEFAULT) [address] [address] Monocytes (Bld) [#/Vol] 0.66 10*3/uL Normal 0.22-0.87 [facility] Comment on above: Performed By: #### L AB980 #### [facility] (DEFAULT) [address] [address] Monocytes/100 WBC (Bld) 8.1 % Normal [facility] Comment on above: Performed By: #### L AB980 #### [facility] (DEFAULT) [address] [address] Nucleated RBC 0.0 /100 WBC Normal <=0.2 [facility] Comment on above: Performed By: #### L AB980 #### [facility] (DEFAULT) [address] [address] Platelet mean volume (Bld) [Entitic vol] 9.7 fL Normal 8.5-12.2 [facility] Comment on above: Performed By: #### L AB980 #### [facility] (DEFAULT) [address] [address] Platelets (Bld) [#/Vol] 318 10*3/uL Normal 150-393 [facility] Comment on above: Performed By: #### L AB980 #### [facility] (DEFAULT) [address] [address] RBC (Bld) [#/Vol] 4.82 10*6/uL Normal 3.91-5.04 [facility] Comment on above: Performed By: #### L AB980 #### [facility] (DEFAULT) [address] [place] [address] RBC Distribution 14.2 % Normal 10.8-14.9 [facility] Comment on above: Performed By: #### L AB980 #### [facility] (DEFAULT) [address] [place] [address] Segs + Bands Auto 63.2 % Normal [facility] Comment on above: Performed By: #### L AB980 #### [facility] (DEFAULT) [address] [place] [address] Segs + Bands,Absolute Auto 5.11 K/uL Normal 1.64-7.28 [facility] Comment on above: Performed By: #### L AB980 #### [facility] (DEFAULT) [address] [address] WBC (Bld) [#/Vol] 8.10 10*3/uL Normal 3.99-11.19 [facility] Comment on above: Performed By: #### L AB980 #### [facility] (DEFAULT) [address] [address] CHROMOGRANIN Aon 11-06-2023 Chromogranin A 30 ng/mL Normal <93 [facility] Comment on above: Result Comment: ADDITIONAL INFORMATION The testing method is a homogeneous time-resolved immunofluorescent assay manufactured by [employer] and performed on the beneSol Kryptor Compact Plus. Values obtained with different [...] examination and other findings. Test Performed by: [facility] [address] [id number] Rn Complex Care: Ed Russo M.D. Ph.D.; CLIA# [id number] Performed By: #### Y A1ATP #### [facility] (DEFAULT) [address] [place] [address] COMPREHENSIVE METABOLIC PANE Shamir 11-06-2023 Albumin [Mass/Vol] 4.6 g/dL Normal 3.5-5.0 [facility] Comment on above: Performed By: #### C MPN, LDO #### [facility] (DEFAULT) [address] [place] [address] ALP [Catalytic activity/Vol] 75 U/L Normal 32-126 [facility] Comment on above: Performed By: #### C MPN, LDO #### [facility] (DEFAULT) [address] [place] [address] ALT [Catalytic activity/Vol] 66 U/L High 9-48 [facility] Comment on above: Performed By: #### C MPN, LDO #### [facility] (DEFAULT) [address] [place] [address] Anion gap [Moles/Vol] 13 mmol/L Normal 7-17 [facility] Comment on above: Performed By: #### C MPN, LDO #### [facility] (DEFAULT) [address] [place] [address] AST [Catalytic activity/Vol] 40 U/L High 10-39 [facility] Comment on above: Performed By: #### C MPN, LDO #### [facility] (DEFAULT) [address] [place] [address] Bilirubin [Mass/Vol] 0.3 mg/dL Normal <1.5 [facility] Comment on above: Performed By: #### C MPN, LDO #### [facility] (DEFAULT) [address] [place] [address] Calcium [Mass/Vol] 9.7 mg/dL Normal 8.6-10.5 [facility] Comment on above: Performed By: #### C MPN, LDO #### [facility] (DEFAULT) [address] [place] [address] Chloride [Moles/Vol] 104 mmol/L Normal 98-108 [facility] Comment on above: Performed By: #### C MPN, LDO #### [facility] (DEFAULT) [address] [place] [address] CO2 [Moles/Vol] 30 mmol/L Normal 21-31 [facility] Comment on above: Performed By: #### C MPN, LDO #### [facility] (DEFAULT) [address] [place] [address] Creatinine [Mass/Vol] 0.61 mg/dL Normal 0.50-1.20 [facility] Comment on above: Performed By: #### C MPN, LDO #### [facility] (DEFAULT) [address] [place] [address] eGFR, CKD-EPI, Female > Normal >=60 [facility] Comment on above: Result Comment: Repo rted eGFR is based on the CKD-EPI 2020 equation using creatinine, age, and sex. Performed By: #### C MPN, LDO #### [facility] (DEFAULT) [address] [place] [address] Glucose [Mass/Vol] 62 mg/dL Low 70-99 [facility] Comment on above: Performed By: #### C MPN, LDO #### [facility] (DEFAULT) [address] [place] [address] Osmolality [Osmolality] 293 mosm/kg Normal 278-305 [facility] Comment on above: Performed By: #### C MPN, LDO #### [facility] (DEFAULT) [address] [place] [address] Potassium [Moles/Vol] 3.9 mmol/L Normal 3.5-5.0 [facility] Comment on above: Performed By: #### C MPN, LDO #### [facility] (DEFAULT) [address] [place] [address] Protein [Mass/Vol] 7.3 g/dL Normal 6.4-8.3 [facility] Comment on above: Performed By: #### C MPN, LDO #### [facility] (DEFAULT) [address] [place] [address] Sodium [Moles/Vol] 143 mmol/L Normal 135-145 [facility] Comment on above: Performed By: #### C MPN, LDO #### [facility] (DEFAULT) [address] [place] [address] Urea nitrogen [Mass/Vol] 6 mg/dL Low 7-25 [facility] Comment on above: Performed By: #### C MPN, LDO #### [facility] (DEFAULT) [address] [place] [address] Urea nitrogen/Creatinine [Mass ratio] 10 mg/mg Normal [facility] Comment on above: Performed By: #### C MPN, LDO #### [facility] (DEFAULT) [address] [place] [address] LACTATE DEHYDROGENASEon 04-2 -2023 LD Total 161 U/L Normal 100-190 [facility] Comment on above: Performed By: #### C MPN, LDO #### [facility] (DEFAULT) [address] [place] [address] Shamir 09-25-2023 L Specimen: [id number] Received: 09/27/23 Status: MARIANNA Mosqueda Num: [id number] Spec Type: Surgical Subm Dr: Ron Ruano Tissues: A Placenta - 3rd Trimester (Greater than 28 weeks) (PLACENTA) Procedures: HE/3, Gross/Micro L5 Age/ Patient Sex Location Account Attending Physician Zainab Mcclure 28/F LABE[facility] [id number] Ron Ruano SPEC NUM: [id number] RECD: 09/27/23 STATUS: MARIANNA MOSQUEDA NUM: [id number] AUSTEN: 09/25/[address]: Ron Ruano ENTERED: 09/27/23 [facility] DR: [place],Lab SPEC TYPE: Surgical DEPT: CARL [...] Zainab Swift per requisition, Zainab Mcclure in [employer] same Gross Description Received in formalin labeled [...] of the cut surface of the placenta. Rn Advice sections are submitted in 3 cassettes as follows: A1 - cord and central disc Specimen: [id number] Received: 09/27/23 Status: MARIANNA Sotovinny Num: [id number] Spec Type: Surgical Subm Dr: Ron Ruano Tissues: A Placenta - 3rd Trimester (Greater than 28 weeks) (PLACENTA) Procedures: ALMAPedro/Zack L5 Patient: Zainab Mcclure [id number] (Continued) Specimen: [id number] Received: 09/27/23 (Continued) Gross Description (Continued) Signed (signature on file) Hawk Stevens MD 09/28/232017 Specimen: [id number] Received: 09/27/23 Status: MARIANNA Mosqueda Num: [id number] Spec Type: Surgical Subm Dr: Ron Ruano Tissues: A Placenta - 3rd Trimester (Greater than 28 weeks) (PLACENTA) Procedures: ALMAPedro Georges/Zack L5 Patient: Zaianb Mcclure [id number] (Continued) Specimen: [id number] Received: 09/27/23 (Continued) Gross Description (Continued) A2 - membranes and marginal disc A3 - Superficial lesion CPT Codes 16144 Specimen: [id number] Received: 09/27/23 Status: MARIANNA Mosqueda Num: [id number] Spec Type: Surgical Subm Dr: Ron Ruano Tissues: A Placenta - 3rd Trimester (Greater than 28 weeks) (PLACENTA) Procedures: HE/3, Gross/Micro L5 Patient: Zainab Mcclure [id number] (Continued) Signed (signature on file) Hawk Stevens MD 09/28/232017 [facility] CHROMOGRANIN Aon 03-11-2023 Chromogranin A <20 Normal <93 [facility] Comment on above: Result Comment: ADDITIONAL INFORMATION This test was developed and its performance characteristics determined by [facility] in a manner consistent with CLIA requirements. [...] homogeneous time-resolved immunofluorescent assay manufactured by [employer] and performed on the [employer]irvanix[employer] Kryptor Compact Plus. Values obtained with different assay methods or kits may be different and cannot be used interchangeably. Test results cannot be interpreted as absolute evidence for the presence or absence of malignant disease. Test Performed by: [facility] - [address] [address] Rn Complex Care: Ed Russo M.D. Ph.D.; CLIA# [id number] Performed By: #### Y A1ATP #### [facility] (DEFAULT) [address] [id number] MRI ABDOMEN/PELVIS WITHOUT C [facility] 03-11-2023 MRI ABDOMEN/PELVIS WITHOUT CONTRAST EXAM: MRI [...] not well visualized on this exam. Normal [facility] IMPRESSION: 1. Stable postoperative changes [...] is not well visualized on this exam. [facility] Radiology Study observation (narrative) [facility] MRI ABDOMEN/PELVIS WITHOUT C ONTRASTOrdered By: Mandi Montiel on 03-11-2023 [facility] Work Phone: CT ABDOMEN/PELVIS WITH AND W [...] nodes and have decreased in size. Normal [facility] CT Chest W contrast Jason [...] I have reviewed and approved this report. [facility] CT Chest W contrast IVOrdere d By: Benjamin Santos on 10-23-[address] [facility] [address] Chest W contrast Jason Radiology Study observation (narrative) [facility] CT Neck W contrast Jason - IMPRESSION: Examination is within normal limits. Negative [...] for mass or adenopathy in the neck. [facility] Radiology Study observation (narrative) [facility] CT Neck W contrast IVOrdered By: Miguel Espinal on 10-22-2022 [facility] Work Phone: Cardiac echo study Procedure Ordered By: Guerrero Carvalho on 10-22-2022 Ao peak raj 1.26 m/s [facility] Work Phone: [facility]o VTI 19.98 [facility]: [facility]: AV LVOT peak gradient 3 mmHg [facility] Work Phone: AV mean gradient 3 mmHg [facility] Work Phone: AV peak gradient 6 mmHG [facility] Work Phone: AV valve area 2.24 cm2 [facility] Work Phone: AV Velocity Ratio [address] [facility] Work Phone: FRANK (continuity Vmax) 1.82 cm2 [facility] Work Phone: FRANK (continuity VTI) 2.24 cm2 [facility] Work Phone: FRANK index (continuity Vmax) 1.06 m/s [facility] Work Phone: FRANK index (continuity VTI) 1.30 cm2/m2 [facility] Work Phone: Avg e' pk raj 0.15 m/s [facility] Work Phone: Avg E/e' ratio 4.89 [facility] Work Phone: Body surface area Derived from formula 1.72 m2 [facility] Work Phone: BP EF 62 % [facility] Work Phone: DI (Vmax) 0.70 [facility] Work Phone: DI (VTI) 0.86 m/2 [facility] Work Phone: E wave decelartion time 217.58 msec [facility] Work Phone: e' lateral pk raj 0.1597 m/s [facility] Work Phone: e' lateral pk raj 0.16 m/s [facility] Work Phone: e' septal pk raj 0.1401 m/s [facility] Work Phone: e' septal pk raj 0.14 m/s [facility] Work Phone: E/A ratio 0.74 [facility] Work Phone: E/e' lateral ratio 4.57 [facility] Work Phone: E/e' septal ratio 5.21 [facility] Work Phone: EF SP 2CH 64 [facility] Work Phone: EF SP 4CH 59 [facility] Work Phone: FS 33 % 28 - 44 % [facility] Work Phone: IVC ostium 1.46 cm [facility] Work Phone: IVS 0.61 cm [facility] Work Phone: LA AREA 2CH 13.72 cm2 [facility] Work Phone: LA area 4CH 9.33 cm2 [facility] Work Phone: LA ESV BP (MOD) 29 mL [facility] Work Phone: LA ESV BP (MOD) index 17 mL/m2 [facility] Work Phone: LA ESV SP 2CH (MOD) 37 mL [facility] Work Phone: LA ESV SP 4CH (MOD) 19 mL [facility] Work Phone: Long Strain -21.7 % [facility] Work Phone: LV EDV BP 71 mL [facility] Work Phone: LV EDV SP 2CH 76 mL [facility] Work Phone: LV EDV SP 4CH 61 mL [facility] Work Phone: LV ESV BP 27 mL [facility] Work Phone: LV ESV SP 2CH 27 mL [facility] Work Phone: LV ESV SP 4CH 25 mL [facility] Work Phone: LV mass 68.53 g [facility] Work Phone: LV Mass Index 39.8 g/m2 [facility] Work Phone: LV RWT 0.30 [facility] Work Phone: LV stroke volume BP (ml) 44 mL [facility] Work Phone: LV stroke volume index BP 25.58 mL/m2 [facility] Work Phone: LVIDD 4.10 cm [facility] Work Phone: LVIDS 2.73 cm [facility] Work Phone: LVOT area 2.60 cm2 [facility] Work Phone: LVOT diameter 1.82 cm [facility] Work Phone: LVOT peak raj 0.88 m/s [facility] Work Phone: LVOT peak VTI 17.19 cm [facility] Work Phone: LVOT stroke volume 45 cm3 [facility] Work Phone: LVOT stroke volume index 25.99 ml/m2 [facility] Work Phone: MV pk A raj 0.98 m/s [facility] Work Phone: MV pk E raj 0.73 m/s [facility] Work Phone: MV stenosis pressure 1/2 time 63.10 ms [facility] Work Phone: MV valve area p 1/2 method 3.49 cm2 [facility] Work Phone: [facility] AV VTI RATIO PRE STRESS 0.86 [facility] Work Phone: OSU ECHO LV BIPLANE SYSTOLIC VOLUME INDEX 15.70 mL/m2 [facility] Work Phone: [facility] ECHO LV BP DIASTOLIC VOLUME INDEX 41.28 mL/m2 [facility] Work Phone: PV peak gradient 4 mmHg [facility] Work Phone: PV PK RAJ 0.97 m/s [facility] Work Phone: PW 0.61 cm [facility] Work Phone: RA vol index 4CH (MOD) 12.79 mL/m2 [facility] Work Phone: Right atrium volume 4 chamber method of disks 22 mL [facility] Work Phone: RV Area diastolic 21.[address] [facility] Work Phone: RV Area systolic 11.51 cm2 [facility] Work Phone: RV basal diam 3.02 cm [facility] Work Phone: RV Fractional area change 47.3 % [facility] Work Phone: RV long diam 7.35 cm [facility] Work Phone: RV Long Strain -28.0 % [facility] Work Phone: RV mid diam 2.68 cm [facility] Work Phone: RV S' 12.55 cm/s [facility] Work Phone: RVOT peak gradient 1 mmHg [facility] Work Phone: RVOT peak raj 0.59 m/s [facility] Work Phone: Sinus 2.70 cm [facility] Work Phone: STJ 2.41 cm [facility] Work Phone: Stroke Volume 45 cm/mL [facility] Work Phone: Stroke volume index [facility] Work Phone: TAPSE 2.03 cm [facility] Work Phone: [facility] Work Phone: Cardiac echo study Procedure on [...] The left ventricular wall motion is normal. [facility] Radiology Study observation (narrative) [facility] B-TYPE NATRIURETIC PEPTIDE ( BRAIN)on 10-07-2022 Interpretation and review of laboratory results Normal [facility] Natriuretic peptide B (Bld) [Mass/Vol] 4 pg/mL 0 - 100 pg/mL [facility] HIGH SENSITIVITY TROPONIN I - SINGLE ORDERon 10-07-2022 Interpretation and review of laboratory results Normal [facility] Troponin I.cardiac High sensitivity method [Mass/Vol] ng/L NINF - 34 ng/L [facility] MONOon 10-02-2022 Monocytes (Bld) [#/Vol] Negative Normal NEGATIVE [facility] Comment on above: Performed By: #### L IVER, LDH, BMP #### [facility] [address] [place] [address] Dr. Esthela Stevens CBC AUTO DIFFon 09-30-2022 BASO # 0.1 103/ul Normal 0.0-0.1 [facility] Comment on above: Performed By: #### L IVER, LDH, BMP #### [facility] [address] [place] [address] Dr. Esthela Stevens Basophils/100 WBC (Bld) 0.8 % Normal 0.2-2.0 [facility] Comment on above: Performed By: #### L IVER, LDH, BMP #### [facility] [address] [place] [address] Dr. Esthela Stevens EO # 0.1 103/ul Normal 0.0-0.7 [facility] Comment on above: Performed By: #### L IVER, LDH, BMP #### [facility] [address] [place] [address] Dr. Esthela Stevens Eosinophils/100 WBC (Bld) 1.7 % Normal 0.9-7.0 [facility] Comment on above: Performed By: #### L IVER, LDH, BMP #### [facility] [address] [place] [address] Dr. Esthela Stevens Erythrocyte distribution width (RBC) [Ratio] 13.1 % Normal 11.0-15.0 [facility] Comment on above: Performed By: #### L IVER, LDH, BMP #### [facility] [address] [place] [address] Dr. Esthela Stevens Hematocrit (Bld) [Volume fraction] 38.4 % Normal 36.0-48.0 [facility] Comment on above: Performed By: #### L IVER, LDH, BMP #### [facility] [address] [place] [address] Dr. Esthela Stevens Hemoglobin (Bld) [Mass/Vol] 12.4 g/dL Normal 12.0-16.0 [facility] Comment on above: Performed By: #### L IVER, LDH, BMP #### [facility] [address] [place] [address] Dr. Esthela Stevens IG # 0.02 10e3/ul Normal 0.00-0.03 [facility] Comment on above: Performed By: #### L IVER, LDH, BMP #### [facility] [address] [place] [address] Dr. Esthela Stevens IG % 0.3 % Normal 0.0-0.5 [facility] Comment on above: Performed By: #### L IVER, LDH, BMP #### [facility] [address] [place] [address] Dr. Esthela Stevens LYMPH # 2.2 103/ul Normal 1.2-3.8 [facility] Comment on above: Performed By: #### L IVER, LDH, BMP #### [facility] [address] [place] [address] Dr. Esthela Stevens Lymphocytes/100 WBC (Bld) 32.8 % Normal 20.5-60.0 [facility] Comment on above: Performed By: #### L IVER, LDH, BMP #### [facility] [address] [place] [address] Dr. Esthela Stevens MANUAL DIFF REQ NO Normal [facility] Comment on above: Performed By: #### L IVER, LDH, BMP #### [facility] [address] [place] [address] Dr. Esthela Stevens MCH (RBC) [Entitic mass] 27.1 pg Normal 26.7-34.0 [facility] Comment on above: Performed By: #### L IVER, LDH, BMP #### [facility] [address] [place] [address] Dr. Esthela Stevens MCHC (RBC) [Mass/Vol] 32.3 g/dL Normal 29.9-35.2 [facility] Comment on above: Performed By: #### L IVER, LDH, BMP #### [facility] [address] [place] [address] Dr. Esthela Stevens MCV (RBC) [Entitic vol] 83.8 fL Normal 81.0-99.0 [facility] Comment on above: Performed By: #### L IVER, LDH, BMP #### [facility] [address] [place] [address] Dr. Esthela Stevens MONO # 0.5 103/ul Normal 0.3-0.8 [facility] Comment on above: Performed By: #### L IVER, LDH, BMP #### [facility] [address] [place] [address] Dr. Esthela Stevens Monocytes/100 WBC (Bld) 8.0 % Normal 1.7-12.0 [facility] Comment on above: Performed By: #### L IVER, LDH, BMP #### [facility] [address] [place] [address] Dr. Esthela Stevens NEUT # 3.7 103/ul Normal 1.4-6.5 [facility] Comment on above: Performed By: #### L IVER, LDH, BMP #### [facility] [address] [place] [address] Dr. Esthela Stevens Neutrophils/100 WBC (Bld) 56.4 % Normal 43.0-75.0 [facility] Comment on above: Performed By: #### L IVER, LDH, BMP #### [facility] [address] [place] [address] Dr. Esthela Stevens Platelet mean volume (Bld) [Entitic vol] 9.3 fL Critically low 9.5-13.5 [facility] Comment on above: Performed By: #### L IVER, LDH, BMP #### [facility] [address] [place] [address] Dr. Esthela Stevens PLT 334 103/ul Normal 150-450 [facility] Comment on above: Performed By: #### L IVER, LDH, BMP #### [facility] [address] [place] [address] Dr. Esthela Stevens RBC 4.58 106/ul Normal 4.20-5.40 [facility] Comment on above: Performed By: #### L IVER, LDH, BMP #### [facility] [address] [place] [address] Dr. Esthela Stevens WBC 6.6 103/ul Normal 4.0-11.0 [facility] Comment on above: Performed By: #### L IVER, LDH, BMP #### [facility] [address] [place] [address] Dr. Esthela Stevens LDHon 09-30-2022 LDH 122 U/L Normal 81-234 [facility] Comment on above: Performed By: #### L IVER, LDH, BMP #### [facility] [address] [place] [address] Dr. Esthela Stevens LIVER PROFILEon 09-30-2022 Albumin [Mass/Vol] 4.1 g/dL Normal 3.4-5.0 [facility] Comment on above: Performed By: #### L IVER, LDH, BMP #### [facility] [address] [place] [address] Dr. Esthela Stevens Albumin/Globulin [Mass ratio] 1.2 {ratio} Normal [facility] Comment on above: Performed By: #### L IVER, LDH, BMP #### [facility] [facility] [address] [place] [address] Dr. Esthela Stevens ALP [Catalytic activity/Vol] 75 U/L Normal 46-116 [facility] Comment on above: Performed By: #### L IVER, LDH, BMP #### [facility] [address] [place] [address] Dr. Esthela Stevens ALT [Catalytic activity/Vol] 41 U/L Normal 14-59 [facility] Comment on above: Performed By: #### L IVER, LDH, BMP #### [facility] [address] [place] [address] Dr. Esthela Stevens AST [Catalytic activity/Vol] 30 U/L Normal 15-37 [facility] Comment on above: Performed By: #### L IVER, LDH, BMP #### [facility] [address] [place] [address] Dr. Esthela Stevens BILI, CONJUGATED 0.1 mg/dL Normal 0.0-0.2 [facility] Comment on above: Performed By: #### L IVER, LDH, BMP #### [facility] [address] [place] [address] Dr. Esthela Stevens Bilirubin [Mass/Vol] 0.5 mg/dL Normal 0.2-1.0 [facility] Comment on above: Performed By: #### L IVER, LDH, BMP #### [facility] [address] [place] [address] Dr. Esthela Stevens Globulin (S) [Mass/Vol] 3.3 g/dL Normal [facility] Comment on above: Performed By: #### L IVER, LDH, BMP #### [facility] [address] [place] [address] Dr. Esthela Stevens Protein [Mass/Vol] 7.4 g/dL Normal 6.4-8.2 [facility] Comment on above: Performed By: #### L IVER, LDH, BMP #### [facility] [address] [place] [address] Dr. Esthela Stevens PROF CHEM 8 (BAS METB)on Anion gap [Moles/Vol] 9.2 mmol/L Normal [facility] Comment on above: Performed By: #### L IVER, LDH, BMP #### [facility] [address] [place] [address] Dr. Esthela Stevens Calcium [Mass/Vol] 9.0 mg/dL Normal 8.5-10.1 [facility] Comment on above: Performed By: #### L IVER, LDH, BMP #### [facility] [address] [place] [address] Dr. Esthela Stevens Chloride [Moles/Vol] 102 mmol/L Normal 98-107 [facility] Comment on above: Performed By: #### L IVER, LDH, BMP #### [facility] [address] [place] [address] Dr. Esthela Stevens CO2 [Moles/Vol] 27.8 mmol/L Normal 21.0-32.0 [facility] Comment on above: Performed By: #### L IVER, LDH, BMP #### [facility] [address] [place] [address] Dr. Esthela Stevens Creatinine [Mass/Vol] 0.63 mg/dL Normal 0.55-1.02 [facility] Comment on above: Performed By: #### L IVER, LDH, BMP #### [facility] [address] [place] [address] Dr. Esthela Stevens EGFR-AF CUBAN >60 Normal >=60 [facility] Comment on above: Performed By: #### L IVER, LDH, BMP #### [facility] [address] [address] [address] Esthela Stevens EGFR-NON AF CUBAN >60 Normal >=60 [facility] Comment on above: Performed By: #### L IVER, LDH, BMP #### [facility] [address] [place] [address] Dr. Esthela Stevens Glucose [Mass/Vol] 106 mg/dL Normal 74-106 [facility] Comment on above: Performed By: #### L IVER, LDH, BMP #### [facility] [address] [place] [address] Dr. Esthela Stevens Potassium [Moles/Vol] 4.0 mmol/L Normal 3.5-5.1 [facility] Comment on above: Performed By: #### L IVER, LDH, BMP #### [facility] [address] [place] [address] Dr. Esthela Stevens Sodium [Moles/Vol] 135 mmol/L Critically low 136-145 [facility] Comment on above: Performed By: #### L IVER, LDH, BMP #### [facility] [address] [place] [address] Dr. Esthela Stevens Urea nitrogen [Mass/Vol] 9.0 mg/dL Normal 7.0-18.0 [facility] Comment on above: Performed By: #### L IVER, LDH, BMP #### [facility] [address] [place] [address] Dr. Esthela Stevens Urea nitrogen/Creatinine [Mass ratio] 14.3 mg/mg Normal [facility] Comment on above: Performed By: #### L IVER, LDH, BMP #### [facility] [address] [place] [address] Dr. Esthela Stevens MG MAMM DIAGNOSTIC 3D EFREN CA Don 09-23-2022 MG MAMM DIAGNOSTIC 3D EFREN CAD Patient: ZAINAB SWIFT Exam Date: 09/23/2022 : 1995 Gender:F Ordering : ERIN SAMS [facility] Admission #: [id number] Family : Order #: [id number] CLICK HERE TO VIEW EXAM RADIOLOGY REPORT [...] cervical cancer at age 42. LOCATION: [facility] BREAST COMPOSITION: Extremely dense, which lowers [...] M.D. on 09/23/2022 at 11:31 Normal [facility] US BREAST EFREN LIMITEDon -0 US BREAST EFREN LIMITED Patient: ZAINAB SWIFT Exam Date: 09/23/2022 : 1995 Gender:F Ordering : ERIN SAMS [facility] Admission #: [id number] Family : Order #: [id number] CLICK HERE TO VIEW EXAM RADIOLOGY REPORT [...] cervical cancer at age 42. LOCATION: [facility] BREAST COMPOSITION: Extremely dense, which lowers [...] M.D. on 09/23/2022 at 11:31 Normal [facility] Covid-19 PCR (CVDTBH)on 08-20 SARS-CoV-2 (COVID-19) RNA JORGE LUIS+probe Ql (Unsp spec) Not detected Normal NOT DETECTED [facility] Comment on above: Result Comment: When [...] for this test is supported by the Corporate Giving Manager of Health and Human Service's declaration that [...] used). Performed By: #### P REG #### [facility] [address] [place] [address] Dr. Esthela Stevens INFLUENZA A AND B AGon 09-15 [facility] SEE BELOW Normal [facility] Comment on above: Result Comment: Nega tive for Flu A protein angiten. Infection due to Flu A cannot be ruled out. Flu A angiten in the sample may be below the detection limit of the test. Performed By: #### L IVER, LDH, BMP #### [facility] [address] [place] [address] Dr. Esthela Stevens INFLUBNEGH SEE BELOW Normal [facility] Comment on above: Result Comment: Nega tive for Flu B protein antigen. Infection due to Flu B cannot be ruled out. Flu B antigen in the sample may be below the detection limit of the test. Performed By: #### L IVER, LDH, BMP #### [facility] [address] [place] [address] Dr. Esthela Stevens INFLUENZA A AG Negative Normal NEGATIVE SEE COMMENT [facility] Comment on above: Performed By: #### L IVER, LDH, BMP #### [facility] [address] [place] [address] Dr. Esthela Stevens INFLUENZA B AG Negative Normal NEGATIVE SEE COMMENT [facility] Comment on above: Performed By: #### L IVER, LDH, BMP #### [facility] [address] [place] [address] Dr. Esthela Stevens HUNTER by IFAon 09-04-2022 Antinuclear Antibodies, IFA Positive Abnormal [facility] Comment on above: Result Comment: Nega tive <1:80 Borderline 1:80 Positive >1:80 Performed By: #### P REG #### [facility] [address] [place] [address] Dr. Esthela Stevens Centriole Pattern Normal [facility] Comment on above: Performed By: #### P REG #### [facility] [address] [address] [address] Esthela Stevens Centromere Pattern Normal [facility] Comment on above: Performed By: #### P REG #### [facility] [address] [address] [address] Esthela Stevens Homogeneous Pattern 1:160 Critically high [facility] Comment on above: Result Comment: ICAP nomenclature: AC-1 Performed By: #### P REG #### [facility] [address] [address] [address] Esthela Stevens Midbody Pattern Normal [facility] Comment on above: Performed By: #### P REG #### [facility] [address] [address] [address] Esthela Stevens Note: Comment Normal [facility] Comment on above: Result Comment: For [...] titers Nucleosomes, Histones Drug-induced SLE Speckled Sm, BENDING SHED WORKER, SCL-70, SLE,MCTD,PSS (diffuse form), SS-A/SS-B Sjogrens Nucleolar SCL-70, PM-1/SCL High titers Scleroderma, PM/DM Centromere Centromere PSS (limited form) w/Crest syndrome variable Nuclear Dot [id number] Primary Biliary Cirrhosis Nuclear GP210, Primary Biliary Cirrhosis Membrane italia A,B,C Performed By: #### P REG #### [facility] [address] [place] [address] Dr. Esthela Stevens Nuclear Dot Pattern Normal [facility] Comment on above: Performed By: #### P REG #### [facility] [address] [address] [address] Esthela Stevens Nuclear Membrane Pattern Normal [facility] Comment on above: Performed By: #### P REG #### [facility] [address] [address] [address] Esthela Stevens Nucleolar Pattern Normal [facility] Comment on above: Performed By: #### P REG #### [facility] [address] [place] [address] Dr. Esthela Stevens PCNA Pattern Normal [facility] Comment on above: Performed By: #### P REG #### [facility] [address] [place] [address] Dr. Esthela Stevens Speckled Pattern Normal [facility] Comment on above: Performed By: #### P REG #### [facility] [address] [place] [address] Dr. Esthela Stevens Spindle Apparatus Pattern Normal [facility] Comment on above: Performed By: #### P REG #### [facility] [address] [place] [address] Dr. Esthela Stevens ANTISTREPTOLYSIN O AB (ASO)o n 09-01-2022 Antistreptolysin O Ab 58.8 IU/mL Normal 0.0-200.0 [facility] Comment on above: Performed By: #### L IVER, LDH, BMP #### [facility] [address] [place] [address] Dr. Esthela Stevens INSULINon 09-01-2022 Insulin 12.2 uIU/mL Normal 2.6-24.9 [facility] Comment on above: Performed By: #### I NSULIN #### [facility] [address] [place] [address] Dr. Esthela Stevens RHEUMATOID FACTORon 09-01-19 RA Latex Turbid. <10.0 Normal <14.0 [facility] Comment on above: Performed By: #### L IVER, LDH, BMP #### [facility] [address] [place] [address] Dr. Esthela Stevens CBC AUTO DIFFon 08-31-2022 BASO # 0.0 103/ul Normal 0.0-0.1 [facility] Comment on above: Performed By: #### P REG #### [facility] [address] [place] [address] Dr. Esthela Stevens Basophils/100 WBC (Bld) 0.6 % Normal 0.2-2.0 [facility] Comment on above: Performed By: #### P REG #### [facility] [address] [place] [address] Dr. Esthela Stevens EO # 0.1 103/ul Normal 0.0-0.7 [facility] Comment on above: Performed By: #### P REG #### [facility] [address] [place] [address] Dr. Esthela Stevens Eosinophils/100 WBC (Bld) 1.5 % Normal 0.9-7.0 [facility] Comment on above: Performed By: #### P REG #### [facility] [address] [place] [address] Dr. Esthela Stevens Erythrocyte distribution width (RBC) [Ratio] 12.7 % Normal 11.0-15.0 [facility] Comment on above: Performed By: #### P REG #### [facility] [address] [place] [address] Dr. Esthela Stevens Hematocrit (Bld) [Volume fraction] 38.4 % Normal 36.0-48.0 [facility] Comment on above: Performed By: #### P REG #### [facility] [address] [place] [address] Dr. Esthela Stevens Hemoglobin (Bld) [Mass/Vol] 12.7 g/dL Normal 12.0-16.0 [facility] Comment on above: Performed By: #### P REG #### [facility] [address] [place] [address] Dr. Esthela Stevens IG # 0.02 10e3/ul Normal 0.00-0.03 [facility] Comment on above: Performed By: #### P REG #### [facility] [address] [place] [address] Dr. Esthela Stevens IG % 0.3 % Normal 0.0-0.5 [facility] Comment on above: Performed By: #### P REG #### [facility] [address] [place] [address] Dr. Esthela Stevens LYMPH # 2.0 103/ul Normal 1.2-3.8 [facility] Comment on above: Performed By: #### P REG #### [facility] [address] [place] [address] Dr. Esthela Stevens Lymphocytes/100 WBC (Bld) 31.2 % Normal 20.5-60.0 [facility] Comment on above: Performed By: #### P REG #### [facility] [address] [place] [address] Dr. Esthela Stevens MANUAL DIFF REQ NO Normal [facility] Comment on above: Performed By: #### P REG #### [facility] [address] [place] [address] Dr. Esthela Stevens MCH (RBC) [Entitic mass] 27.1 pg Normal 26.7-34.0 [facility] Comment on above: Performed By: #### P REG #### [facility] [address] [place] [address] Dr. Esthela Stevens MCHC (RBC) [Mass/Vol] 33.1 g/dL Normal 29.9-35.2 [facility] Comment on above: Performed By: #### P REG #### [facility] [address] [place] [address] Dr. Esthela Stevens MCV (RBC) [Entitic vol] 82.1 fL Normal 81.0-99.0 [facility] Comment on above: Performed By: #### P REG #### [facility] [address] [place] [address] Dr. Esthela Stevens MONO # 0.4 103/ul Normal 0.3-0.8 [facility] Comment on above: Performed By: #### P REG #### [facility] [address] [place] [address] Dr. Esthela Stevens Monocytes/100 WBC (Bld) 6.4 % Normal 1.7-12.0 [facility] Comment on above: Performed By: #### P REG #### [facility] [address] [place] [address] Dr. Esthela Stevens NEUT # 3.9 103/ul Normal 1.4-6.5 [facility] Comment on above: Performed By: #### P REG #### [facility] [address] [place] [address] Dr. Esthela Stevens Neutrophils/100 WBC (Bld) 60.0 % Normal 43.0-75.0 [facility] Comment on above: Performed By: #### P REG #### [facility] [address] [place] [address] Dr. Esthela Stevens Platelet mean volume (Bld) [Entitic vol] 9.2 fL Critically low 9.5-13.5 [facility] Comment on above: Performed By: #### P REG #### [facility] [address] [place] [address] Dr. Esthela Stevens PLT 390 103/ul Normal 150-450 [facility] Comment on above: Performed By: #### P REG #### [facility] [address] [place] [address] Dr. Esthela Stevens RBC 4.68 106/ul Normal 4.20-5.40 [facility] Comment on above: Performed By: #### P REG #### [facility] [address] [place] [address] Dr. Esthela Stevens WBC 6.5 103/ul Normal 4.0-11.0 [facility] Comment on above: Performed By: #### P REG #### [facility] [address] [place] [address] Dr. Esthela Stevens CRPon 08-31-2022 CRP [Mass/Vol] mg/L Normal <=1.0 [facility] Comment on above: Performed By: #### L IVER, LDH, BMP #### [facility] [address] [place] [address] Dr. Esthela Stevens FREE THYROXINE INDEX T7on FTI 2.94 Normal 1.30-4.50 [facility] Comment on above: Performed By: #### L IVER, LDH, BMP #### [facility] [address] [place] [address] Dr. Esthela Stevens T3U 33.0 % Normal 30.0-39.0 [facility] Comment on above: Performed By: #### L IVER, LDH, BMP #### [facility] [address] [place] [address] Dr. Esthela Stevens T4 [Mass/Vol] 8.90 ug/dL Normal 4.80-13.90 [facility] Comment on above: Performed By: #### L IVER, LDH, BMP #### [facility] [address] [address] [address] Esthela Stevens GLYCOHEMOGLOBIN A1Con 2022 ADA RECOMMENDATION SEE BELOW Normal [facility] Comment on above: Result Comment: ADA RECOMMENDED LIMIT 4.0 - 6.0 ADA THERAPEUTIC TARGET < 7.0 ACTION SUGGESTED > 7.0 Performed By: #### L IVER, LDH, BMP #### [facility] [address] [address] [address] Esthela Stevens Glucose [Mass/Vol] 111 mg/dL Normal [facility] Comment on above: Performed By: #### L IVER, LDH, BMP #### [facility] [address] [place] [address] Dr. Esthela Stevens HbA1c (Bld) [Mass fraction] 5.5 % Normal 4.5-6.2 [facility] Comment on above: Performed By: #### L IVER, LDH, BMP #### [facility] [address] [place] [address] Dr. Esthela Stevens IRONon 08-31-2022 Iron [Mass/Vol] 34.0 ug/dL Critically low 50.0-170.0 [facility] Comment on above: Performed By: #### L IVER, LDH, BMP #### [facility] [address] [place] [address] Dr. Esthela Stevens LIPID PROFILEon 08-31-2022 CHOL-HDL RATIO NORM SEE BELOW Normal [facility] Comment on above: Result Comment: 3.3 - 4.4 LOW RISK 4.4 - 7.1 AVERAGE RISK 7.1 - 11.0 MODERATE RISK >11.0 HIGH RISK Performed By: #### L IVER, LDH, BMP #### [facility] [address] [place] [address] Dr. Esthela Stevens Cholesterol [Mass/Vol] 168 mg/dL Normal <=200 [facility] Comment on above: Performed By: #### L IVER, LDH, BMP #### [facility] [address] [address] [address] Esthela Stevens Cholesterol in HDL [Mass/Vol] 51 mg/dL Normal 40-60 [facility] Comment on above: Performed By: #### L IVER, LDH, BMP #### [facility] [address] [address] [address] Esthela Stevens Cholesterol in LDL [Mass/Vol] 91.8 mg/dL Normal [facility] Comment on above: Performed By: #### L IVER, LDH, BMP #### [facility] [address] [address] [address] Esthela Stevens Cholesterol.total/Ch olesterol in HDL [Mass ratio] 3.3 {ratio} Normal [facility] Comment on above: Performed By: #### L IVER, LDH, BMP #### [facility] [address] [address] [address] Esthela Stevens HDL NORMAL > or = 60 mg/dl - LOW CARDIOVASCULAR RISK <40 mg/dl - HIGH CARDIOVASCULAR RISK Normal [facility] Comment on above: Performed By: #### L IVER, LDH, BMP #### [facility] [address] [address] [address] Esthela Stevens LDL CALC NORMAL SEE BELOW Normal [facility] Comment on above: Result Comment: <100 mg/dl OPTIMAL 100 - 129 mg/dl NEAR OR ABOVE OPTIMAL 130 - 159 mg/dl BORDERLINE HIGH 160 - 189 mg/dl HIGH >190 mg/dl VERY HIGH Performed By: #### L IVER, LDH, BMP #### [facility] [address] [address] [address] Esthela Stevens Triglyceride [Mass/Vol] 126 mg/dL Normal <=150 [facility] Comment on above: Performed By: #### L IVER, LDH, BMP #### [facility] [address] [address] [address] Esthela Stevens VLDL CALC 25.2 mg/dL Normal [facility] Comment on above: Performed By: #### L IVER, LDH, BMP #### [facility] [address] [address] [address] Esthela Stevens PROF 14(COMP METB)on 023 Albumin [Mass/Vol] 4.2 g/dL Normal 3.4-5.0 [facility] Comment on above: Performed By: #### L IVER, LDH, BMP #### [facility] [address] [address] [address] Esthela Stevens Albumin/Globulin [Mass ratio] 1.1 {ratio} Normal [facility] Comment on above: Performed By: #### L IVER, LDH, BMP #### [facility] [address] [address] [address] Esthela Stevens ALP [Catalytic activity/Vol] 74 U/L Normal 46-116 [facility] Comment on above: Performed By: #### L IVER, LDH, BMP #### [facility] [address] [address] [address] Esthela Stevens ALT [Catalytic activity/Vol] 57 U/L Normal 14-59 [facility] Comment on above: Performed By: #### L IVER, LDH, BMP #### [facility] [address] [address] [address] Esthela Stevens Anion gap [Moles/Vol] 15.0 mmol/L Normal [facility] Comment on above: Performed By: #### L IVER, LDH, BMP #### [facility] [address] [address] [address] Esthela Stevens AST [Catalytic activity/Vol] 25 U/L Normal 15-37 [facility] Comment on above: Performed By: #### L IVER, LDH, BMP #### [facility] [address] [address] [address] Esthela Stevens Bilirubin [Mass/Vol] 0.4 mg/dL Normal 0.2-1.0 [facility] Comment on above: Performed By: #### L IVER, LDH, BMP #### [facility] [address] [address] [address] Esthela Stevens Calcium [Mass/Vol] 9.4 mg/dL Normal 8.5-10.1 [facility] Comment on above: Performed By: #### L IVER, LDH, BMP #### [facility] [address] [place] [address] Dr. Esthela Stevens Chloride [Moles/Vol] 102 mmol/L Normal 98-107 [facility] Comment on above: Performed By: #### L IVER, LDH, BMP #### [facility] [address] [place] [address] Dr. Esthela Stevens CO2 [Moles/Vol] 27.0 mmol/L Normal 21.0-32.0 [facility] Comment on above: Performed By: #### L IVER, LDH, BMP #### [facility] [address] [place] [address] Dr. Esthela Stevens Creatinine [Mass/Vol] 0.61 mg/dL Normal 0.55-1.02 [facility] Comment on above: Performed By: #### L IVER, LDH, BMP #### [facility] [address] [place] [address] Dr. Esthela Stevens EGFR-AF CUBAN >60 Normal >=60 [facility] Comment on above: Performed By: #### L IVER, LDH, BMP #### [facility] [address] [place] [address] Dr. Esthela Stevens EGFR-NON AF CUBAN >60 Normal >=60 [facility] Comment on above: Performed By: #### L IVER, LDH, BMP #### [facility] [address] [place] [address] Dr. Esthela Stevens Globulin (S) [Mass/Vol] 3.7 g/dL Normal [facility] Comment on above: Performed By: #### L IVER, LDH, BMP #### [facility] [address] [place] [address] Dr. Esthela Stevens Glucose [Mass/Vol] 88 mg/dL Normal 74-106 [facility] Comment on above: Performed By: #### L IVER, LDH, BMP #### [facility] [address] [place] [address] Dr. Esthela Stevens Potassium [Moles/Vol] 4.0 mmol/L Normal 3.5-5.1 [facility] Comment on above: Performed By: #### L IVER, LDH, BMP #### [facility] [address] [address] [address] Esthela Stevens Protein [Mass/Vol] 7.9 g/dL Normal 6.4-8.2 [facility] Comment on above: Performed By: #### L IVER, LDH, BMP #### [facility] [address] [place] [address] Dr. Esthela Stevens Sodium [Moles/Vol] 140 mmol/L Normal 136-145 [facility] Comment on above: Performed By: #### L IVER, LDH, BMP #### [facility] [address] [place] [address] Dr. Esthela Stevens Urea nitrogen [Mass/Vol] 4.0 mg/dL Critically low 7.0-18.0 [facility] Comment on above: Performed By: #### L IVER, LDH, BMP #### [facility] [address] [place] [address] Dr. Esthela Stevens Urea nitrogen/Creatinine [Mass ratio] 6.6 mg/mg Normal [facility] Comment on above: Performed By: #### L IVER, LDH, BMP #### [facility] [address] [place] [address] Dr. Esthela Stevens TSHon 08-31-2022 TSH 1.348 uIU/mL Normal 0.358-3.740 [facility] Comment on above: Performed By: #### L IVER, LDH, BMP #### [facility] [address] [place] [address] Dr. Esthela Stevens URIC ACID SERUMon 08-31-2022 Urate [Mass/Vol] 4.4 mg/dL Normal 2.6-6.0 [facility] Comment on above: Performed By: #### L IVER, LDH, BMP #### [facility] [address] [place] [address] Dr. Esthela Stevens VITAMIN D 25 OHon 08-31-2022 VIT D 25-OH 18.0 ng/mL Normal [facility] Comment on above: Performed By: #### L IVER, LDH, BMP #### [facility] [address] [place] [address] Dr. Esthela Stevens VIT D RANGES SEE BELOW Normal [facility] Comment on above: Result Comment: <20 ng/mL Vit D deficient 20 - <30 ng/mL Vit D insufficient 30 - 100 ng/mL Vit D sufficient >100 ng/mL Potential Toxicity Performed By: #### L IVER, LDH, BMP #### [facility] [address] [place] [address] Dr. Esthela Stevens LIVER PROFILEon 08-24-2022 Albumin [Mass/Vol] 3.9 g/dL Normal 3.4-5.0 [facility] Comment on above: Performed By: #### L IVER, LDH, BMP #### [facility] [address] [place] [address] Dr. Esthela Stevens Albumin/Globulin [Mass ratio] 1.0 {ratio} Normal [facility] Comment on above: Performed By: #### L IVER, LDH, BMP #### [facility] [address] [place] [address] Dr. Esthela Stevens ALP [Catalytic activity/Vol] 70 U/L Normal 46-116 [facility] Comment on above: Performed By: #### L IVER, LDH, BMP #### [facility] [address] [place] [address] Dr. Esthela Stevens ALT [Catalytic activity/Vol] 44 U/L Normal 14-59 [facility] Comment on above: Performed By: #### L IVER, LDH, BMP #### [facility] [address] [place] [address] Dr. Esthela Stevens AST [Catalytic activity/Vol] 22 U/L Normal 15-37 [facility] Comment on above: Performed By: #### L IVER, LDH, BMP #### [facility] [address] [place] [address] Dr. Esthela Stevens BILI, CONJUGATED 0.1 mg/dL Normal 0.0-0.2 [facility] Comment on above: Performed By: #### L IVER, LDH, BMP #### [facility] [address] [address] [address] Esthela Stevens Bilirubin [Mass/Vol] 0.3 mg/dL Normal 0.2-1.0 [facility] Comment on above: Performed By: #### L IVER, LDH, BMP #### [facility] [address] [place] [address] Dr. Esthela Stevens Globulin (S) [Mass/Vol] 3.9 g/dL Normal [facility] Comment on above: Performed By: #### L IVER, LDH, BMP #### [facility] [address] [place] [address] Dr. Esthela Stevens Protein [Mass/Vol] 7.8 g/dL Normal 6.4-8.2 [facility] Comment on above: Performed By: #### L IVER, LDH, BMP #### [facility] [address] [place] [address] Dr. Esthela Stevens CREAT/GFRon 08-19-2022 Creatinine [Mass/Vol] 0.85 mg/dL 0.50 - 1.20 mg/dL [facility] GFR/1.73 sq M.predicted CKD-EPI (S/P/Bld) [Vol rate/Area] [facility] Comment on above: Reported eGFR is bas ed on the CKD-EPI 2020 equation using creatinine, age, and sex. Interpretation and review of laboratory results Normal [facility] Test performed at address of the patient encounter. 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 [facility] Radiology Study observation (narrative) [facility] PT Skull base to mid-thighOr dered By: Hawa Pichardo on 08-19-2022 [facility] Work Phone: CBC AUTO DIFFon 08-12-2022 BASO # 0.1 103/ul Normal 0.0-0.1 [facility] Comment on above: Performed By: #### L IVER, LDH, BMP #### [facility] [address] [place] [address] Dr. Esthela Stevens Basophils/100 WBC (Bld) 1.0 % Normal 0.2-2.0 [facility] Comment on above: Performed By: #### L IVER, LDH, BMP #### [facility] [address] [place] [address] Dr. Esthela Stevens EO # 0.1 103/ul Normal 0.0-0.7 [facility] Comment on above: Performed By: #### L IVER, LDH, BMP #### [facility] [address] [place] [address] Dr. Esthela Stevens Eosinophils/100 WBC (Bld) 1.6 % Normal 0.9-7.0 [facility] Comment on above: Performed By: #### L IVER, LDH, BMP #### [facility] [address] [place] [address] Dr. Esthela Stevens Erythrocyte distribution width (RBC) [Ratio] 12.5 % Normal 11.0-15.0 [facility] Comment on above: Performed By: #### L IVER, LDH, BMP #### [facility] [address] [place] [address] Dr. Esthela Stevens Hematocrit (Bld) [Volume fraction] 40.1 % Normal 36.0-48.0 [facility] Comment on above: Performed By: #### L IVER, LDH, BMP #### [facility] [address] [place] [address] Dr. Esthela Stevens Hemoglobin (Bld) [Mass/Vol] 12.3 g/dL Normal 12.0-16.0 [facility] Comment on above: Performed By: #### L IVER, LDH, BMP #### [facility] [address] [address] [address] Esthela Stevens IG # 0.01 10e3/ul Normal 0.00-0.03 [facility] Comment on above: Performed By: #### L IVER, LDH, BMP #### [facility] [address] [place] [address] Dr. Esthela Stevens IG % 0.2 % Normal 0.0-0.5 [facility] Comment on above: Performed By: #### L IVER, LDH, BMP #### [facility] [address] [place] [address] Dr. Esthela Stevens LYMPH # 1.8 103/ul Normal 1.2-3.8 [facility] Comment on above: Performed By: #### L IVER, LDH, BMP #### [facility] [address] [place] [address] Dr. Esthela Stevens Lymphocytes/100 WBC (Bld) 28.0 % Normal 20.5-60.0 [facility] Comment on above: Performed By: #### L IVER, LDH, BMP #### [facility] [address] [place] [address] Dr. Esthela Stevens MANUAL DIFF REQ NO Normal [facility] Comment on above: Performed By: #### L IVER, LDH, BMP #### [facility] [address] [place] [address] Dr. Esthela Stevens MCH (RBC) [Entitic mass] 26.8 pg Normal 26.7-34.0 [facility] Comment on above: Performed By: #### L IVER, LDH, BMP #### [facility] [address] [place] [address] Dr. Esthela Stevens MCHC (RBC) [Mass/Vol] 30.7 g/dL Normal 29.9-35.2 [facility] Comment on above: Performed By: #### L IVER, LDH, BMP #### [facility] [address] [place] [address] Dr. Esthela Stevens MCV (RBC) [Entitic vol] 87.4 fL Normal 81.0-99.0 [facility] Comment on above: Performed By: #### L IVER, LDH, BMP #### [facility] [address] [place] [address] Dr. Esthela Stevens MONO # 0.6 103/ul Normal 0.3-0.8 [facility] Comment on above: Performed By: #### L IVER, LDH, BMP #### [facility] [address] [place] [address] Dr. Etshela Stevens Monocytes/100 WBC (Bld) 9.4 % Normal 1.7-12.0 [facility] Comment on above: Performed By: #### L IVER, LDH, BMP #### [facility] [address] [place] [address] Dr. Esthela Stevens NEUT # 3.8 103/ul Normal 1.4-6.5 [facility] Comment on above: Performed By: #### L IVER, LDH, BMP #### [facility] [address] [place] [address] Dr. Esthela Stevens Neutrophils/100 WBC (Bld) 59.8 % Normal 43.0-75.0 [facility] Comment on above: Performed By: #### L IVER, LDH, BMP #### [facility] [address] [place] [address] Dr. Esthela Stevens Platelet mean volume (Bld) [Entitic vol] 9.6 fL Normal 9.5-13.5 [facility] Comment on above: Performed By: #### L IVER, LDH, BMP #### [facility] [address] [place] [address] Dr. Esthela Stevens PLT 341 103/ul Normal 150-450 [facility] Comment on above: Performed By: #### L IVER, LDH, BMP #### [facility] [address] [place] [address] Dr. Esthela Stevens RBC 4.59 106/ul Normal 4.20-5.40 [facility] Comment on above: Performed By: #### L IVER, LDH, BMP #### [facility] [address] [place], [place] [address] Dr. Esthela Stevens WBC 6.3 103/ul Normal 4.0-11.0 [facility] Comment on above: Performed By: #### L SONU GARDNER BMP #### [facility] [id number] Esthela Stevens CT ABD/PELV W CONon [...] TIMMY SHAY Date: 2022-08-12 17:04 Normal [facility] CULTURE URINEon 08-12-2022 CULTURE URINE Culture Observations: MODERATE GROWTH OF MIXED GENITAL SUNITA. NO POTENTIAL PATHOGENS SEEN. Normal [facility] Comment on above: Performed By: #### L IVER, LDH, BMP #### [facility] [address] [address] [address] Esthela Stevens ER URINE PROFILEon 3 Bilirubin Ql (U) Negative Normal NEGATIVE [facility] Comment on above: Performed By: #### P REG #### [facility] [address] [place] [address] Dr. Esthela Stevens Clarity (U) CLEAR Normal CLEAR [facility] Comment on above: Performed By: #### P REG #### [facility] [address] [place] [address] Dr. Esthela Stevens Color (U) LT. YELLOW Normal YELLOW [facility] Comment on above: Performed By: #### P REG #### [facility] [address] [place] [address] Dr. Esthela ARGUELLES A micrscopic examination will be performed if indicated. Normal [facility] Comment on above: Performed By: #### P REG #### [facility] [address] [address] [address] Esthela Stevens Glucose Ql (U) Negative Normal NEGATIVE [facility] Comment on above: Performed By: #### P REG #### [facility] [address] [place] [address] Dr. Esthela Stevens Hemoglobin Ql (U) Negative Normal NEGATIVE [facility] Comment on above: Performed By: #### P REG #### [facility] [address] [place] [address] Dr. Esthela Stevens Ketones Ql (U) Negative Normal NEGATIVE [facility] Comment on above: Performed By: #### P REG #### [facility] [address] [place] [address] Dr. Esthela Stevens LEUKOCYTES SMALL Abnormal NEGATIVE [facility] Comment on above: Performed By: #### P REG #### [facility] [address] [place] [address] Dr. Esthela Stevens Nitrite Ql (U) Negative Normal NEGATIVE [facility] Comment on above: Performed By: #### P REG #### [facility] [address] [place] [address] Dr. Esthela Stevens pH (U) 7.0 [pH] Normal 5-9 [facility] Comment on above: Performed By: #### P REG #### [facility] [address] [place] [address] Dr. Eshtela Stevens SPEC GRAVITY 1.020 Normal 1.005-<=1.025 [facility] Comment on above: Performed By: #### P REG #### [facility] [address] [place] [address] Dr. Esthela Stevens UA PROTEIN Negative Normal NEGATIVE/ TRACE [facility] Comment on above: Performed By: #### P REG #### [facility] [address] [place] [address] Dr. Esthela Stevens UR MICRO IND INDICATED Normal [facility] Comment on above: Performed By: #### P REG #### [facility] [address] [place] [address] Dr. Esthela Stevens Urobilinogen Qn (U) 0.2 {Emeka'U}/dL Normal 0.2 - 1. 0 [facility] Comment on above: Performed By: #### P REG #### [facility] [address] [place] [address] Dr. Esthela Stevens LIPASEon 08-12-2022 Lipase [Catalytic activity/Vol] 75.0 U/L Normal 73.0-393.0 [facility] Comment on above: Performed By: #### P REG #### [facility] [address] [place] [address] Dr. Esthela Stevens URon 08-12-2022 , QUAL Negative Normal NEGATIVE [facility] Comment on above: Performed By: #### P REG #### [facility] [address] [place] [address] Dr. Esthela Stevens PROF 14(COMP METB)on 023 Albumin [Mass/Vol] 4.0 g/dL Normal 3.4-5.0 [facility] Comment on above: Performed By: #### P REG #### [facility] [address] [place] [address] Dr. Esthela Stevens Albumin/Globulin [Mass ratio] 1.1 {ratio} Normal [facility] Comment on above: Performed By: #### P REG #### [facility] [address] [place] [address] Dr. Estehla Stevens ALP [Catalytic activity/Vol] 73 U/L Normal 46-116 [facility] Comment on above: Performed By: #### P REG #### [facility] [address] [place] [address] Dr. Esthela Stevens ALT [Catalytic activity/Vol] 82 U/L Critically high 14-59 [facility] Comment on above: Performed By: #### P REG #### [facility] [address] [place] [address] Dr. Esthela Stevens Anion gap [Moles/Vol] 12.0 mmol/L Normal [facility] Comment on above: Performed By: #### P REG #### [facility] [address] [place] [address] Dr. Esthela Stevens AST [Catalytic activity/Vol] 33 U/L Normal 15-37 [facility] Comment on above: Performed By: #### P REG #### [facility] [address] [place] [address] Dr. Esthela Stevens Bilirubin [Mass/Vol] 0.2 mg/dL Normal 0.2-1.0 [facility] Comment on above: Performed By: #### P REG #### [facility] [address] [place] [address] Dr. Esthela Stevens Calcium [Mass/Vol] 9.4 mg/dL Normal 8.5-10.1 [facility] Comment on above: Performed By: #### P REG #### [facility] [address] [address] [address] Esthela Stevens Chloride [Moles/Vol] 102 mmol/L Normal 98-107 [facility] Comment on above: Performed By: #### P REG #### [facility] [address] [address] [address] Esthela Stevens CO2 [Moles/Vol] 27.8 mmol/L Normal 21.0-32.0 [facility] Comment on above: Performed By: #### P REG #### [facility] [address] [place] [address] Dr. Esthela Stevens Creatinine [Mass/Vol] 0.69 mg/dL Normal 0.55-1.02 [facility] Comment on above: Performed By: #### P REG #### [facility] [address] [place] [address] Dr. Esthela Stevens EGFR-AF CUBAN >60 Normal >=60 [facility] Comment on above: Performed By: #### P REG #### [facility] [address] [place] [address] Dr. Esthela Stevens EGFR-NON AF CUBAN >60 Normal >=60 [facility] Comment on above: Performed By: #### P REG #### [facility] [address] [place] [address] Dr. Esthela Stevens Globulin (S) [Mass/Vol] 3.5 g/dL Normal [facility] Comment on above: Performed By: #### P REG #### [facility] [address] [place] [address] Dr. Esthela Stevens Glucose [Mass/Vol] 109 mg/dL Critically high 74-106 [facility] Comment on above: Performed By: #### P REG #### [facility] [address] [place] [address] Dr. Esthela Stevens Potassium [Moles/Vol] 3.8 mmol/L Normal 3.5-5.1 [facility] Comment on above: Performed By: #### P REG #### [facility] [address] [address] [address] Esthela Stevens Protein [Mass/Vol] 7.5 g/dL Normal 6.4-8.2 [facility] Comment on above: Performed By: #### P REG #### [facility] [address] [address] [address] Esthela Stevens Sodium [Moles/Vol] 138 mmol/L Normal 136-145 [facility] Comment on above: Performed By: #### P REG #### [facility] [address] [address] [address] Esthela Stevens Urea nitrogen [Mass/Vol] 6.0 mg/dL Critically low 7.0-18.0 [facility] Comment on above: Performed By: #### P REG #### [facility] [address] [place] [address] Dr. Esthela Stevens Urea nitrogen/Creatinine [Mass ratio] 8.7 mg/mg Normal [facility] Comment on above: Performed By: #### P REG #### [facility] [address] [place] [address] Dr. Esthela Stevens URINE MICROSCOPIC ONLYon BACTERIA SMALL Abnormal NONE SEEN [facility] Comment on above: Performed By: #### P REG #### [facility] [address] [place] [address] Dr. Esthela Stevens Bacteria identified Cx Nom (U) INDICATED Normal [facility] Comment on above: Performed By: #### P REG #### [facility] [address] [place] [address] Dr. Esthela Stevens CAST NONE SEEN Normal NONE SEEN [facility] Comment on above: Performed By: #### P REG #### [facility] [address] [place] [address] Dr. Esthela Stevens Crystals LM Nom (Urine sed) NONE SEEN Normal NONE SEEN [facility] Comment on above: Performed By: #### P REG #### [facility] [address] [place] [address] Dr. Esthela Stevens Epithelial cells LM Ql (Urine sed) MODERATE Abnormal NONE SEEN /RARE [facility] Comment on above: Performed By: #### P REG #### [facility] [address] [address] [address] Esthela Stevens MUCOUS NONE SEEN Normal NONE SEEN [facility] Comment on above: Performed By: #### P REG #### [facility] [address] [address] [address] Esthela Stevens RBC NONE SEEN Abnormal 0-2 [facility] Comment on above: Performed By: #### P REG #### [facility] [address] [place] [address] Dr. Esthela Stevens WBC 2-5 Abnormal NONE SEEN [facility] Comment on above: Performed By: #### P REG #### [facility] [address] [place] [address] Dr. Esthela Stevens PAP ACOG PANEL 2: 21 to 31on 08-11-2022 . . Normal [facility] Comment on above: Performed By: #### [id number] #### [facility] [address] [place] [address] Dr. Esthela Stevens Age Gdln ACOG Testing - Normal [facility] Comment on above: Performed By: #### [id number] #### [facility] [address] [place] [address] Dr. Esthela Stevens DIAGNOSIS: Comment Abnormal [facility] Comment on above: Result Comment: EPIT HELIAL CELL ABNORMALITY. ATYPICAL SQUAMOUS CELLS OF UNDETERMINED SIGNIFICANCE (ASC-US). Performed By: #### [id number] #### [facility] [address] [place] [address] Dr. Esthela Stevens Electronically signed by: Comment Normal [facility] Comment on above: Result Comment: Zoe Moncada MD, Pathologist Performed By: #### [id number] #### [facility] [address] [place] [address] Dr. Esthela Stevens HPV Aptima Negative Normal Negative [facility] Comment on above: Result Comment: This nucleic acid amplification test detects fourteen high-risk HPV types (16,18,31,33,35,39,45,51,52,56,58,59,66,68) without differentiation. Performed By: #### [id number] #### [facility] [address] [place] [address] Dr. Esthela Stevens Methodology: Comment [facility] Comment on above: Result Comment: This liquid based ThinPrep(R) pap test was screened with the use of an image guided system. Performed By: #### [id number] #### [facility] [address] [place] [address] Dr. Esthela Stevens Note: Comment Normal [facility] Comment on above: Result Comment: The Pap smear is a screening test designed to aid in the detection of premalignant and malignant conditions of the uterine cervix. It is not a diagnostic procedure and should not be used as the sole means of detecting cervical cancer. Both false-positive and false-negative reports do occur. . Performed By: #### [id number] #### [facility] [address] [place] [address] Dr. Esthela Stevens Pathologist Provided ICD10 Comment Normal [facility] Comment on above: Result Comment: [id number] Performed By: #### [id number] #### [facility] [address] [place] [address] Dr. Esthela Stevens Performed by: Comment Normal [facility] Comment on above: Result Comment: Nevin Ardon [employer] Worker (ASCP) Performed By: #### [id number] #### [facility] [address] [place] [address] Dr. Esthela Stevens Reflex Criteria: Comment Normal [facility] Comment on above: Result Comment: See below for HPV testing results. . Performed By: #### [id number] #### [facility] [address] [place] [address] Dr. Esthela Stevens Specimen adequacy: Comment Normal [facility] Comment on above: Result Comment: Sati sfactory for evaluation. Endocervical and/or squamous metaplastic cells (endocervical component) are present. Performed By: #### [id number] #### [facility] [address] [place] [address] Dr. Esthela Stevens GI PANEL (PCR)on 06-03-2022 Adenovirus F 40/41 Not detected Normal NOT DETECTED [facility] Comment on above: Performed By: #### P REG #### [facility] [address] [place] [address] Dr. Esthela Stevens Astrovirus Not detected Normal NOT DETECTED [facility] Comment on above: Performed By: #### P REG #### [facility] [address] [place] [address] Dr. Esthela Stevens C. Diff toxin A/B Detected Critically abnormal NOT DETECTED [facility] Comment on above: Performed By: #### P REG #### [facility] [address] [place] [address] Dr. Esthela Stevens Campylobacter Not detected Normal NOT DETECTED [facility] Comment on above: Performed By: #### P REG #### [facility] [address] [place] [address] Dr. Esthela Stevens Cryptosporidium Not detected Normal NOT DETECTED [facility] Comment on above: Performed By: #### P REG #### [facility] [address] [place] [address] Dr. Esthela Stevens Cyclos. Cayetanensis Not detected Normal NOT DETECTED [facility] Comment on above: Performed By: #### P REG #### [facility] [address] [place] [address] Dr. Esthela Stevens E. Coli O157 Not Applicable Normal Not Applicable [facility] Comment on above: Performed By: #### P REG #### [facility] [address] [place] [address] Dr. Esthela Stevens E. histolytica Not detected Normal NOT DETECTED [facility] Comment on above: Performed By: #### P REG #### [facility] [address] [place] [address] Dr. Esthela Stevens EAEC Not detected Normal NOT DETECTED [facility] Comment on above: Performed By: #### P REG #### [facility] [address] [place] [address] Dr. Esthela Stevens EIEC Not detected Normal NOT DETECTED [facility] Comment on above: Performed By: #### P REG #### [facility] [address] [address] [address] Esthela Stevens EPEC Not detected Normal NOT DETECTED [facility] Comment on above: Performed By: #### P REG #### [facility] [address] [address] [address] Esthela Stevens ETEC Not detected Normal NOT DETECTED [facility] Comment on above: Performed By: #### P REG #### [facility] [address] [address] [address] Esthela Barcenas Lamblia Not detected Normal NOT DETECTED [facility] Comment on above: Performed By: #### P REG #### [facility] [address] [place] [address] Dr. Esthela KELLY CONTROLS PASSED Normal [facility] Comment on above: Performed By: #### P REG #### [facility] [address] [place] [address] Dr. Esthela WEBB HEADER GI PANEL BACTERIA Normal T [facility] Comment on above: Performed By: #### P REG #### [facility] [address] [place] [address] Dr. Esthela LARA ECOLI GI PANEL DIARRHEAGENIC E.COLI / SHIGELLA Normal [facility] Comment on above: Performed By: #### P REG #### [facility] [address] [place] [address] Dr. Esthela LARA INFO SEE BELOW Normal [facility] Comment on above: Result Comment: EAEC - Enteroaggregative E. Coli EPEC- Enteropathogenic E. Coli ETEC- Enterotoxigenic E. Coli lt/st STEC- Shigella-like toxin-producing E. Coli stx1/stx2 EIEC- Shigella/Enteroinvasive E. Coli Performed By: #### P REG #### [facility] [address] [place] [address] Dr. Esthela LARA PARASITES GI PANEL PARASITES Normal [facility] Comment on above: Performed By: #### P REG #### [facility] [address] [place] [address] Dr. Esthela Stevens [facility] VIRUS GI PANEL VIRUSES Normal [facility] Comment on above: Performed By: #### P REG #### [facility] [address] [place] [address] Dr. Esthela Stevens Norovirus GI/GII Not detected Normal NOT DETECTED [facility] Comment on above: Performed By: #### P REG #### [facility] [address] [place] [address] Dr. Esthela Stevens P. Shigelloides Not detected Normal NOT DETECTED [facility] Comment on above: Performed By: #### P REG #### [facility] [address] [place] [address] Dr. Esthela Stevens Rotavirus A Not detected Normal NOT DETECTED [facility] Comment on above: Performed By: #### P REG #### [facility] [address] [place] [address] Dr. Esthela Stevens Salmonella Not detected Normal NOT DETECTED [facility] Comment on above: Performed By: #### P REG #### [facility] [address] [place] [address] Dr. Esthela Stevens Sapovirus Not detected Normal NOT DETECTED [facility] Comment on above: Performed By: #### P REG #### [facility] [address] [place] [address] Dr. Esthela Stevens STEC Not detected Normal NOT DETECTED [facility] Comment on above: Performed By: #### P REG #### [facility] [address] [place] [address] Dr. Esthela Stevens Vibrio Not detected Normal NOT DETECTED [facility] Comment on above: Performed By: #### P REG #### [facility] [address] [place] [address] Dr. Esthela Stevens Vibrio Cholera Not detected Normal NOT DETECTED [facility] Comment on above: Performed By: #### P REG #### [facility] [address] [place] [address] Dr. Esthela Stevens Y. Enterocolitica Not detected Normal NOT DETECTED [facility] Comment on above: Performed By: #### P REG #### [facility] [address] [place] [address] Dr. Esthela Stevens CBC AUTO DIFFon 06-02-2022 BASO # 0.1 103/ul Normal 0.0-0.1 [facility] Comment on above: Performed By: #### L IVER, LDH, BMP #### [facility] [address] [place] [address] Dr. Esthela Stevens Basophils/100 WBC (Bld) 0.6 % Normal 0.2-2.0 [facility] Comment on above: Performed By: #### L IVER, LDH, BMP #### [facility] [address] [place] [address] Dr. Esthela Stevens EO # 0.5 103/ul Normal 0.0-0.7 [facility] Comment on above: Performed By: #### L IVER, LDH, BMP #### [facility] [address] [place] [address] Dr. Esthela Stevens Eosinophils/100 WBC (Bld) 4.3 % Normal 0.9-7.0 [facility] Comment on above: Performed By: #### L IVER, LDH, BMP #### [facility] [address] [place] [address] Dr. Esthela Stevens Erythrocyte distribution width (RBC) [Ratio] 13.0 % Normal 11.0-15.0 [facility] Comment on above: Performed By: #### L IVER, LDH, BMP #### [facility] [address] [place] [address] Dr. Esthela Stevens Hematocrit (Bld) [Volume fraction] 33.6 % Critically low 36.0-48.0 [facility] Comment on above: Performed By: #### L IVER, LDH, BMP #### [facility] [address] [place] [address] Dr. Esthela Stevens Hemoglobin (Bld) [Mass/Vol] 10.9 g/dL Critically low 12.0-16.0 [facility] Comment on above: Performed By: #### L IVER, LDH, BMP #### [facility] [address] [place] [address] Dr. Esthela Stevens IG # 0.05 10e3/ul Critically high 0.00-0.03 [facility] Comment on above: Performed By: #### L IVER, LDH, BMP #### [facility] [address] [place] [address] Dr. Esthela Stevens IG % 0.5 % Normal 0.0-0.5 [facility] Comment on above: Performed By: #### L IVER, LDH, BMP #### [facility] [address] [place] [address] Dr. Esthela Stevens LYMPH # 2.4 103/ul Normal 1.2-3.8 [facility] Comment on above: Performed By: #### L IVER, LDH, BMP #### [facility] [address] [place] [address] Dr. Esthela Stevens Lymphocytes/100 WBC (Bld) 22.4 % Normal 20.5-60.0 [facility] Comment on above: Performed By: #### L IVER, LDH, BMP #### [facility] [address] [place] [address] Dr. Esthela Stevens MANUAL DIFF REQ NO Normal [facility] Comment on above: Performed By: #### L IVER, LDH, BMP #### [facility] [address] [place] [address] Dr. Esthela Steevns MCH (RBC) [Entitic mass] 26.9 pg Normal 26.7-34.0 [facility] Comment on above: Performed By: #### L IVER, LDH, BMP #### [facility] [address] [place] [address] Dr. Esthela Stevens MCHC (RBC) [Mass/Vol] 32.4 g/dL Normal 29.9-35.2 [facility] Comment on above: Performed By: #### L IVER, LDH, BMP #### [facility] [address] [place] [address] Dr. Esthela Stevens MCV (RBC) [Entitic vol] 83.0 fL Normal 81.0-99.0 [facility] Comment on above: Performed By: #### L IVER, LDH, BMP #### [facility] [address] [place] [address] Dr. Esthela Stevens MONO # 0.8 103/ul Normal 0.3-0.8 [facility] Comment on above: Performed By: #### L IVER, LDH, BMP #### [facility] [address] [place] [address] Dr. Esthela Stevens Monocytes/100 WBC (Bld) 7.1 % Normal 1.7-12.0 [facility] Comment on above: Performed By: #### L IVER, LDH, BMP #### [facility] [address] [place] [address] Dr. Esthela Stevens NEUT # 7.0 103/ul Critically high 1.4-6.5 [facility] Comment on above: Performed By: #### L IVER, LDH, BMP #### [facility] [address] [place] [address] Dr. Esthela Stevens Neutrophils/100 WBC (Bld) 65.1 % Normal 43.0-75.0 [facility] Comment on above: Performed By: #### L IVER, LDH, BMP #### [facility] [address] [place] [address] Dr. Esthela Stevens Platelet mean volume (Bld) [Entitic vol] 8.9 fL Critically low 9.5-13.5 [facility] Comment on above: Performed By: #### L IVER, LDH, BMP #### [facility] [address] [place] [address] Dr. Esthela Stevens PLT 519 103/ul Critically high 150-450 [facility] Comment on above: Performed By: #### L IVER, LDH, BMP #### [facility] [address] [place] [address] Dr. Esthela Stevens RBC 4.05 106/ul Critically low 4.20-5.40 [facility] Comment on above: Performed By: #### L IVER, LDH, BMP #### [facility] [address] [place] [address] Dr. Esthela Stevens WBC 10.8 103/ul Normal 4.0-11.0 [facility] Comment on above: Performed By: #### L IVER, LDH, BMP #### [facility] [address] [place] [address] Dr. Esthela Stevens PROF 14(COMP METB)on 022 Albumin [Mass/Vol] 3.7 g/dL Normal 3.4-5.0 [facility] Comment on above: Performed By: #### L IVER, LDH, BMP #### [facility] [address] [place] [address] Dr. Esthela Stevens Albumin/Globulin [Mass ratio] 1.0 {ratio} Normal [facility] Comment on above: Performed By: #### L IVER, LDH, BMP #### [facility] [address] [place] [address] Dr. Esthela Stevens ALP [Catalytic activity/Vol] 75 U/L Normal 46-116 [facility] Comment on above: Performed By: #### L IVER, LDH, BMP #### [facility] [address] [place] [address] Dr. Esthela Stevens ALT [Catalytic activity/Vol] 95 U/L Critically high 14-59 [facility] Comment on above: Performed By: #### L IVER, LDH, BMP #### [facility] [address] [place] [address] Dr. Esthela Stevens Anion gap [Moles/Vol] 13.4 mmol/L Normal [facility] Comment on above: Performed By: #### L IVER, LDH, BMP #### [facility] [address] [place] [address] Dr. Esthela Stevens AST [Catalytic activity/Vol] 31 U/L Normal 15-37 [facility] Comment on above: Performed By: #### L IVER, LDH, BMP #### [facility] [address] [place] [address] Dr. Esthela Stevens Bilirubin [Mass/Vol] 0.1 mg/dL Critically low 0.2-1.0 [facility] Comment on above: Performed By: #### L IVER, LDH, BMP #### [facility] [address] [address] [address] Esthela Stevens Calcium [Mass/Vol] 9.3 mg/dL Normal 8.5-10.1 [facility] Comment on above: Performed By: #### L IVER, LDH, BMP #### [facility] [address] [address] [address] Esthela Stevens Chloride [Moles/Vol] 102 mmol/L Normal 98-107 [facility] Comment on above: Performed By: #### L IVER, LDH, BMP #### [facility] [address] [address] [address] Esthela Stevens CO2 [Moles/Vol] 26.4 mmol/L Normal 21.0-32.0 [facility] Comment on above: Performed By: #### L IVER, LDH, BMP #### [facility] [address] [address] [address] Esthela Stevens Creatinine [Mass/Vol] 0.67 mg/dL Normal 0.55-1.02 [facility] Comment on above: Performed By: #### L IVER, LDH, BMP #### [facility] [address] [address] [address] Esthela Stevens EGFR-AF CUBAN >60 Normal >=60 [facility] Comment on above: Performed By: #### L IVER, LDH, BMP #### [facility] [address] [address] [address] Esthela Stevens EGFR-NON AF CUBAN >60 Normal >=60 [facility] Comment on above: Performed By: #### L IVER, LDH, BMP #### [facility] [address] [address] [address] Esthela Stevens Globulin (S) [Mass/Vol] 3.7 g/dL Normal [facility] Comment on above: Performed By: #### L IVER, LDH, BMP #### [facility] [address] [address] [address] Esthela Stevens Glucose [Mass/Vol] 101 mg/dL Normal 74-106 [facility] Comment on above: Performed By: #### L IVER, LDH, BMP #### [facility] [address] [place] [address] Dr. Esthela Stevens Potassium [Moles/Vol] 3.8 mmol/L Normal 3.5-5.1 [facility] Comment on above: Performed By: #### L IVER, LDH, BMP #### [facility] [address] [place] [address] Dr. Esthela Stevens Protein [Mass/Vol] 7.4 g/dL Normal 6.4-8.2 [facility] Comment on above: Performed By: #### L IVER, LDH, BMP #### [facility] [address] [place] [address] Dr. Esthela Stevens Sodium [Moles/Vol] 138 mmol/L Normal 136-145 [facility] Comment on above: Performed By: #### L IVER, LDH, BMP #### [facility] [address] [place] [address] Dr. Esthela Stevens Urea nitrogen [Mass/Vol] 12.0 mg/dL Normal 7.0-18.0 [facility] Comment on above: Performed By: #### L IVER, LDH, BMP #### [facility] [address] [place] [address] Dr. Esthela Steevns Urea nitrogen/Creatinine [Mass ratio] 17.9 mg/mg Normal [facility] Comment on above: Performed By: #### L IVER, LDH, BMP #### [facility] [address] [place] [address] Dr. Esthela Stevens CALCIUMon 05-29-2022 Calcium [Mass/Vol] 9.0 mg/dL 8.6 - 10. 5 mg/dL [facility] CBC,PLATELETSon 05-29-2022 Erythrocyte distribution width (RBC) [Ratio] 13.1 % 10.8 - 14.9 % [facility] Hematocrit (Bld) [Volume fraction] 33.0 % Low 34.9 - 44.3 % [facility] Hemoglobin (Bld) [Mass/Vol] 10.5 g/dL Low 11.4 - 15.2 g/dL [facility] Interpretation and review of laboratory results Abnormal [facility] MCH (RBC) [Entitic mass] 27.1 pg 25.9 - 33.9 pg [facility] MCHC (RBC) [Mass/Vol] 31.8 g/dL 31.4 - 35.9 g/dL [facility] MCV (RBC) [Entitic vol] 85.1 fL 79.6 - 97.7 fL [facility] Platelet mean volume (Bld) [Entitic vol] 9.1 fL 8.5 - 12.2 fL [facility] Platelets (Bld) [#/Vol] 423 10*3/uL High 150 - 393 K/uL [facility] RBC (Bld) [#/Vol] 3.88 10*6/uL Low [facility] WBC (Bld) [#/Vol] 7.36 10*3/uL 3.99 - 11. 19 K/uL [facility] CHEM 7 (LYTES,BUN,CREA,GLUC) on 05-29-2022 Anion gap [Moles/Vol] 13 mmol/L 7 - 17 mmol/L [facility] Chloride [Moles/Vol] 104 mmol/L 98 - 10 8 mmol/L [facility] CO2 [Moles/Vol] 26 mmol/L 21 - 31 mmol/L [facility] Creatinine [Mass/Vol] 0.66 mg/dL 0.50 - 1.20 mg/dL [facility] GFR/1.73 sq M.predicted CKD-EPI (S/P/Bld) [Vol rate/Area] - PINF [facility] Comment on above: Reported eGFR is bas ed on the CKD-EPI 2020 equation using creatinine, age, and sex. Glucose [Mass/Vol] 93 mg/dL 70 - 99 mg/dL [facility] Osmolality Calc [Osmolality] 288 [facility] Potassium [Moles/Vol] 4.2 mmol/L 3.5 - 5.0 mmol/L [facility] Sodium [Moles/Vol] 139 mmol/L 135 - 145 mmol/L [facility] Urea nitrogen [Mass/Vol] 5 mg/dL Low 7 - 25 mg/dL [facility] Urea nitrogen/Creatinine [Mass ratio] 8 mg/mg [facility] MAGNESIUMon 05-29-2022 Magnesium [Mass/Vol] 2.1 mg/dL 1.6 - 2 .6 mg/dL [facility] No Panel Informationon 05-29 Interpretation and review of laboratory results Abnormal [facility] Interpretation and review of laboratory results Normal [facility] PHOSPHATE, INORGANICon 05-29 Phosphate [Mass/Vol] 4.8 mg/dL High 2.2 - 4 .6 mg/dL [facility] CALCIUMon 05-28-2022 Calcium [Mass/Vol] 8.6 mg/dL 8.6 - 10. 5 mg/dL [facility] CBC,PLATELETSon 05-28-2022 Erythrocyte distribution width (RBC) [Ratio] 13.0 % 10.8 - 14.9 % [facility] Hematocrit (Bld) [Volume fraction] 30.5 % Low 34.9 - 44.3 % [facility] Hemoglobin (Bld) [Mass/Vol] 9.8 g/dL Low 11.4 - 15.2 g/dL [facility] Interpretation and review of laboratory results Abnormal [facility] MCH (RBC) [Entitic mass] 26.8 pg 25.9 - 33.9 pg [facility] MCHC (RBC) [Mass/Vol] 32.1 g/dL 31.4 - 35.9 g/dL [facility] MCV (RBC) [Entitic vol] 83.6 fL 79.6 - 97.7 fL [facility] Platelet mean volume (Bld) [Entitic vol] 9.3 fL 8.5 - 12.2 fL [facility] Platelets (Bld) [#/Vol] 374 10*3/uL 150 - 393 K/uL [facility] RBC (Bld) [#/Vol] 3.65 10*6/uL Low [facility] WBC (Bld) [#/Vol] 6.07 10*3/uL 3.99 - 11. 19 K/uL [facility] CHEM 7 (LYTES,BUN,CREA,GLUC) on 05-28-2022 Anion gap [Moles/Vol] 11 mmol/L 7 - 17 mmol/L [facility] Chloride [Moles/Vol] 106 mmol/L 98 - 10 8 mmol/L [facility] CO2 [Moles/Vol] 25 mmol/L 21 - 31 mmol/L [facility] Creatinine [Mass/Vol] 0.50 mg/dL 0.50 - 1.20 mg/dL [facility] GFR/1.73 sq M.predicted CKD-EPI (S/P/Bld) [Vol rate/Area] - PINF [facility] Comment on above: Reported eGFR is bas ed on the CKD-EPI 2020 equation using creatinine, age, and sex. Glucose [Mass/Vol] 89 mg/dL 70 - 99 mg/dL [facility] Osmolality Calc [Osmolality] 285 [facility] Potassium [Moles/Vol] 4.1 mmol/L 3.5 - 5.0 mmol/L [facility] Sodium [Moles/Vol] 138 mmol/L 135 - 145 mmol/L [facility] Urea nitrogen [Mass/Vol] 3 mg/dL Low 7 - 25 mg/dL [facility] Urea nitrogen/Creatinine [Mass ratio] 6 mg/mg [facility] MAGNESIUMon 05-28-2022 Magnesium [Mass/Vol] 1.8 mg/dL 1.6 - 2 .6 mg/dL [facility] No Panel Informationon 05-28 Interpretation and review of laboratory results Abnormal [facility] Interpretation and review of laboratory results Normal [facility] PHOSPHATE, INORGANICon 05-28 Phosphate [Mass/Vol] 4.9 mg/dL High 2.2 - 4 .6 mg/dL [facility] CALCIUMon 05-27-2022 Calcium [Mass/Vol] 8.6 mg/dL 8.6 - 10. 5 mg/dL [facility] CBC,PLATELETSon 05-27-2022 Erythrocyte distribution width (RBC) [Ratio] 12.9 % 10.8 - 14.9 % [facility] Hematocrit (Bld) [Volume fraction] 31.1 % Low 34.9 - 44.3 % [facility] Hemoglobin (Bld) [Mass/Vol] 10.1 g/dL Low 11.4 - 15.2 g/dL [facility] Interpretation and review of laboratory results Abnormal [facility] MCH (RBC) [Entitic mass] 27.2 pg 25.9 - 33.9 pg [facility] MCHC (RBC) [Mass/Vol] 32.5 g/dL 31.4 - 35.9 g/dL [facility] MCV (RBC) [Entitic vol] 83.8 fL 79.6 - 97.7 fL [facility] Platelet mean volume (Bld) [Entitic vol] 9.2 fL 8.5 - 12.2 fL [facility] Platelets (Bld) [#/Vol] 344 10*3/uL 150 - 393 K/uL [facility] RBC (Bld) [#/Vol] 3.71 10*6/uL Low [facility] WBC (Bld) [#/Vol] 6.21 10*3/uL 3.99 - 11. 19 K/uL [facility] CHEM 7 (LYTES,BUN,CREA,GLUC) on 05-27-2022 Anion gap [Moles/Vol] 11 mmol/L 7 - 17 mmol/L [facility] Chloride [Moles/Vol] 105 mmol/L 98 - 10 8 mmol/L [facility] CO2 [Moles/Vol] 26 mmol/L 21 - 31 mmol/L [facility] Creatinine [Mass/Vol] 0.49 mg/dL Low 0.50 - 1.20 mg/dL [facility] GFR/1.73 sq M.predicted CKD-EPI (S/P/Bld) [Vol rate/Area] - PINF [facility] Comment on above: Reported eGFR is bas ed on the CKD-EPI 2020 equation using creatinine, age, and sex. Glucose [Mass/Vol] 93 mg/dL 70 - 99 mg/dL [facility] Interpretation and review of laboratory results Abnormal [facility] Osmolality Calc [Osmolality] 285 [facility] Potassium [Moles/Vol] 4.0 mmol/L 3.5 - 5.0 mmol/L [facility] Sodium [Moles/Vol] 138 mmol/L 135 - 145 mmol/L [facility] Urea nitrogen [Mass/Vol] 3 mg/dL Low 7 - 25 mg/dL [facility] Urea nitrogen/Creatinine [Mass ratio] 6 mg/mg [facility] MAGNESIUMon 05-27-2022 Magnesium [Mass/Vol] 1.9 mg/dL 1.6 - 2 .6 mg/dL [facility] No Panel Informationon 05-27 Interpretation and review of laboratory results Normal [facility] PHOSPHATE, INORGANICon 05-27 Phosphate [Mass/Vol] 4.5 mg/dL 2.2 - 4 .6 mg/dL [facility] CALCIUMon 05-26-2022 Calcium [Mass/Vol] 8.4 mg/dL Low 8.6 - 10. 5 mg/dL [facility] CBC,PLATELETSon 05-26-2022 Erythrocyte distribution width (RBC) [Ratio] 12.8 % 10.8 - 14.9 % [facility] Hematocrit (Bld) [Volume fraction] 31.5 % Low 34.9 - 44.3 % [facility] Hemoglobin (Bld) [Mass/Vol] 10.0 g/dL Low 11.4 - 15.2 g/dL [facility] Interpretation and review of laboratory results Abnormal [facility] MCH (RBC) [Entitic mass] 27.0 pg 25.9 - 33.9 pg [facility] MCHC (RBC) [Mass/Vol] 31.7 g/dL 31.4 - 35.9 g/dL [facility] MCV (RBC) [Entitic vol] 84.9 fL 79.6 - 97.7 fL [facility] Platelet mean volume (Bld) [Entitic vol] 9.7 fL 8.5 - 12.2 fL [facility] Platelets (Bld) [#/Vol] 327 10*3/uL 150 - 393 K/uL [facility] RBC (Bld) [#/Vol] 3.71 10*6/uL Low [facility] WBC (Bld) [#/Vol] 7.91 10*3/uL 3.99 - 11. 19 K/uL [facility] CHEM 7 (LYTES,BUN,CREA,GLUC) on 05-26-2022 Anion gap [Moles/Vol] 13 mmol/L 7 - 17 mmol/L [facility] Chloride [Moles/Vol] 102 mmol/L 98 - 10 8 mmol/L [facility] CO2 [Moles/Vol] 23 mmol/L 21 - 31 mmol/L [facility] Creatinine [Mass/Vol] 0.48 mg/dL Low 0.50 - 1.20 mg/dL [facility] GFR/1.73 sq M.predicted CKD-EPI (S/P/Bld) [Vol rate/Area] - [facility] Comment on above: Reported eGFR is bas ed on the CKD-EPI 2020 equation using creatinine, age, and sex. Glucose [Mass/Vol] 154 mg/dL High 70 - 99 mg/dL [facility] Osmolality Calc [Osmolality] 282 [facility] Potassium [Moles/Vol] 4.1 mmol/L 3.5 - 5.0 mmol/L [facility] Sodium [Moles/Vol] 134 mmol/L Low 135 - 145 mmol/L [facility] Urea nitrogen [Mass/Vol] 3 mg/dL Low 7 - 25 mg/dL [facility] Urea nitrogen/Creatinine [Mass ratio] 6 mg/mg [facility] MAGNESIUMon 05-26-2022 Magnesium [Mass/Vol] 1.8 mg/dL 1.6 - 2 .6 mg/dL [facility] No Panel Informationon 05-26 Interpretation and review of laboratory results Abnormal [facility] Interpretation and review of laboratory results Normal [facility] PHOSPHATE, INORGANICon 05-26 Phosphate [Mass/Vol] 3.4 mg/dL 2.2 - 4 .6 mg/dL [facility] CALCIUMon 05-25-2022 Calcium [Mass/Vol] 8.5 mg/dL Low 8.6 - 10. 5 mg/dL [facility] CBC,PLATELETSon 05-25-2022 Erythrocyte distribution width (RBC) [Ratio] 12.8 % 10.8 - 14.9 % [facility] Hematocrit (Bld) [Volume fraction] 31.7 % Low 34.9 - 44.3 % [facility] Hemoglobin (Bld) [Mass/Vol] 9.8 g/dL Low 11.4 - 15.2 g/dL [facility] Interpretation and review of laboratory results Abnormal [facility] MCH (RBC) [Entitic mass] 26.6 pg 25.9 - 33.9 pg [facility] MCHC (RBC) [Mass/Vol] 30.9 g/dL Low 31.4 - 35.9 g/dL [facility] MCV (RBC) [Entitic vol] 85.9 fL 79.6 - 97.7 fL [facility] Platelet mean volume (Bld) [Entitic vol] 9.7 fL 8.5 - 12.2 fL [facility] Platelets (Bld) [#/Vol] 292 10*3/uL 150 - 393 K/uL [facility] RBC (Bld) [#/Vol] 3.69 10*6/uL Low [facility] WBC (Bld) [#/Vol] 9.85 10*3/uL 3.99 - 11. 19 K/uL [facility] CHEM 7 (LYTES,BUN,CREA,GLUC) on 05-25-2022 Anion gap [Moles/Vol] 13 mmol/L 7 - 17 mmol/L [facility] Chloride [Moles/Vol] 104 mmol/L 98 - 10 8 mmol/L [facility] CO2 [Moles/Vol] 24 mmol/L 21 - 31 mmol/L [facility] Creatinine [Mass/Vol] 0.51 mg/dL 0.50 - 1.20 mg/dL [facility] GFR/1.73 sq M.predicted CKD-EPI (S/P/Bld) [Vol rate/Area] - PINF [facility] Comment on above: Reported eGFR is bas ed on the CKD-EPI 2020 equation using creatinine, age, and sex. Glucose [Mass/Vol] 98 mg/dL 70 - 99 mg/dL [facility] Osmolality Calc [Osmolality] 283 [facility] Potassium [Moles/Vol] 4.0 mmol/L 3.5 - 5.0 mmol/L [facility] Sodium [Moles/Vol] 137 mmol/L 135 - 145 mmol/L [facility] Urea nitrogen [Mass/Vol] 2 mg/dL Low 7 - 25 mg/dL [facility] Urea nitrogen/Creatinine [Mass ratio] 4 mg/mg [facility] MAGNESIUMon 05-25-2022 Magnesium [Mass/Vol] 1.8 mg/dL 1.6 - 2 .6 mg/dL [facility] No Panel Informationon 05-25 Interpretation and review of laboratory results Abnormal [facility] Interpretation and review of laboratory results Normal [facility] PHOSPHATE, INORGANICon 05-25 Phosphate [Mass/Vol] 3.2 mg/dL 2.2 - 4 .6 mg/dL [facility] CALCIUMon 05-24-2022 Calcium [Mass/Vol] 7.9 mg/dL Low 8.6 - 10. 5 mg/dL [facility] CBC,PLATELETSon 05-24-2022 Erythrocyte distribution width (RBC) [Ratio] 13.2 % 10.8 - 14.9 % [facility] Hematocrit (Bld) [Volume fraction] 33.0 % Low 34.9 - 44.3 % [facility] Hemoglobin (Bld) [Mass/Vol] 10.4 g/dL Low 11.4 - 15.2 g/dL [facility] Interpretation and review of laboratory results Abnormal [facility] MCH (RBC) [Entitic mass] 27.2 pg 25.9 - 33.9 pg [facility] MCHC (RBC) [Mass/Vol] 31.5 g/dL 31.4 - 35.9 g/dL [facility] MCV (RBC) [Entitic vol] 86.2 fL 79.6 - 97.7 fL [facility] Platelet mean volume (Bld) [Entitic vol] 9.7 fL 8.5 - 12.2 fL [facility] Platelets (Bld) [#/Vol] 270 10*3/uL 150 - 393 K/uL [facility] RBC (Bld) [#/Vol] 3.83 10*6/uL Low [facility] WBC (Bld) [#/Vol] 13.10 10*3/uL High 3.99 - 11 .19 K/uL [facility] CHEM 7 (LYTES,BUN,CREA,GLUC) on 05-24-2022 Anion gap [Moles/Vol] 10 mmol/L 7 - 17 mmol/L [facility] Chloride [Moles/Vol] 105 mmol/L 98 - 10 8 mmol/L [facility] CO2 [Moles/Vol] 24 mmol/L 21 - 31 mmol/L [facility] Creatinine [Mass/Vol] 0.51 mg/dL 0.50 - 1.20 mg/dL [facility] GFR/1.73 sq M.predicted CKD-EPI (S/P/Bld) [Vol rate/Area] - PINF [facility] Comment on above: Reported eGFR is bas ed on the CKD-EPI 2020 equation using creatinine, age, and sex. Glucose [Mass/Vol] 121 mg/dL High 70 - 99 mg/dL [facility] Osmolality Calc [Osmolality] 281 [facility] Potassium [Moles/Vol] 4.1 mmol/L 3.5 - 5.0 mmol/L [facility] Sodium [Moles/Vol] 135 mmol/L 135 - 145 mmol/L [facility] Urea nitrogen [Mass/Vol] 2 mg/dL Low 7 - 25 mg/dL [facility] Urea nitrogen/Creatinine [Mass ratio] 4 mg/mg [facility] MAGNESIUMon 05-24-2022 Interpretation and review of laboratory results Normal [facility] Magnesium [Mass/Vol] 1.7 mg/dL 1.6 - 2 .6 mg/dL [facility] No Panel Informationon 05-24 Interpretation and review of laboratory results Abnormal [facility] PHOSPHATE, INORGANICon 05-24 Phosphate [Mass/Vol] 2.1 mg/dL Low 2.2 - 4 .6 mg/dL [facility] CALCIUMon 05-23-2022 Calcium [Mass/Vol] 8.0 mg/dL Low 8.6 - 10. 5 mg/dL [facility] Interpretation and review of laboratory results Abnormal [facility] CBC,PLATELETSon 05-23-2022 Erythrocyte distribution width (RBC) [Ratio] 13.0 % 10.8 - 14.9 % [facility] Hematocrit (Bld) [Volume fraction] 38.4 % 34.9 - 44.3 % [facility] Hemoglobin (Bld) [Mass/Vol] 12.3 g/dL 11.4 - 15.2 g/dL [facility] Interpretation and review of laboratory results Abnormal [facility] MCH (RBC) [Entitic mass] 26.8 pg 25.9 - 33.9 pg [facility] MCHC (RBC) [Mass/Vol] 32.0 g/dL 31.4 - 35.9 g/dL [facility] MCV (RBC) [Entitic vol] 83.7 fL 79.6 - 97.7 fL [facility] Platelet mean volume (Bld) [Entitic vol] 9.6 fL 8.5 - 12.2 fL [facility] Platelets (Bld) [#/Vol] 354 10*3/uL 150 - 393 K/uL [facility] RBC (Bld) [#/Vol] 4.59 10*6/uL [facility] WBC (Bld) [#/Vol] 12.80 10*3/uL High 3.99 - 11 .19 K/uL [facility] CHEM 7 (LYTES,BUN,CREA,GLUC) Ordered By: Shraddha Munguia on 05-23-2022 Anion gap [Moles/Vol] 13 mmol/L 7 - 17 mmol/L [facility] Chloride [Moles/Vol] 103 mmol/L 98 - 10 8 mmol/L [facility] CO2 [Moles/Vol] 24 mmol/L 21 - 31 mmol/L [facility] Creatinine [Mass/Vol] 0.68 mg/dL 0.50 - 1.20 mg/dL [facility] GFR/1.73 sq M.predicted CKD-EPI (S/P/Bld) [Vol rate/Area] - PINF [facility] Comment on above: Reported eGFR is bas ed on the CKD-EPI 2020 equation using creatinine, age, and sex. Glucose [Mass/Vol] 148 mg/dL High 70 - 99 mg/dL [facility] Interpretation and review of laboratory results Abnormal [facility] Osmolality Calc [Osmolality] 285 [facility] Potassium [Moles/Vol] 4.9 mmol/L 3.5 - 5.0 mmol/L [facility] Sodium [Moles/Vol] 135 mmol/L 135 - 145 mmol/L [facility] Urea nitrogen [Mass/Vol] 4 mg/dL Low 7 - 25 mg/dL [facility] Urea nitrogen/Creatinine [Mass ratio] 6 mg/mg [facility] MAGNESIUMon 05-23-2022 Magnesium [Mass/Vol] 2.5 mg/dL 1.6 - 2 .6 mg/dL [facility] No Panel Informationon 05-23 Interpretation and review of laboratory results Normal [facility] PHOSPHATE, INORGANICon 05-23 Phosphate [Mass/Vol] 2.7 mg/dL 2.2 - 4 .6 mg/dL [facility] BETA HCG, URINE (POC DEVICE) on 05-22-2022 Beta HCG ( test) Ql (U) Negative Negative [facility] Interpretation and review of laboratory results Normal [facility] Test performed at address of the patient encounter. [facility] CALCIUMon 05-22-2022 Calcium [Mass/Vol] 7.8 mg/dL Low 8.6 - 10. 5 mg/dL [facility] CBC,PLATELETSon 05-22-2022 Erythrocyte distribution width (RBC) [Ratio] 12.7 % 10.8 - 14.9 % [facility] Hematocrit (Bld) [Volume fraction] 37.0 % 34.9 - 44.3 % [facility] Hemoglobin (Bld) [Mass/Vol] 12.0 g/dL 11.4 - 15.2 g/dL [facility] Interpretation and review of laboratory results Abnormal [facility] MCH (RBC) [Entitic mass] 26.3 pg 25.9 - 33.9 pg [facility] MCHC (RBC) [Mass/Vol] 32.4 g/dL 31.4 - 35.9 g/dL [facility] MCV (RBC) [Entitic vol] 81.0 fL 79.6 - 97.7 fL [facility] Platelet mean volume (Bld) [Entitic vol] 9.5 fL 8.5 - 12.2 fL [facility] Platelets (Bld) [#/Vol] 350 10*3/uL 150 - 393 K/uL [facility] RBC (Bld) [#/Vol] 4.57 10*6/uL [facility] WBC (Bld) [#/Vol] 17.70 10*3/uL High 3.99 - 11 .19 K/uL [facility] CHEM 7 (LYTES,BUN,CREA,GLUC) on 05-22-2022 Anion gap [Moles/Vol] 16 mmol/L 7 - 17 mmol/L [facility] Chloride [Moles/Vol] 103 mmol/L 98 - 10 8 mmol/L [facility] CO2 [Moles/Vol] 21 mmol/L 21 - 31 mmol/L [facility] Creatinine [Mass/Vol] 0.56 mg/dL 0.50 - 1.20 mg/dL [facility] GFR/1.73 sq M.predicted CKD-EPI (S/P/Bld) [Vol rate/Area] - [facility] Comment on above: Reported eGFR is bas ed on the CKD-EPI 2020 equation using creatinine, age, and sex. Glucose [Mass/Vol] 133 mg/dL High 70 - 99 mg/dL [facility] Osmolality Calc [Osmolality] 285 [facility] Potassium [Moles/Vol] 3.9 mmol/L 3.5 - 5.0 mmol/L [facility] Sodium [Moles/Vol] 136 mmol/L 135 - 145 mmol/L [facility] Urea nitrogen [Mass/Vol] 6 mg/dL Low 7 - 25 mg/dL [facility] Urea nitrogen/Creatinine [Mass ratio] 11 mg/mg [facility] CONTINUOUS CARDIAC MONITORIN G STRIPon 05-22-2022 [facility] CONTINUOUS CARDIAC MONITORIN G STRIPOrdered By: Unassigned Pacs on 05-22-2022 [facility] Work Phone: HEPATIC FUNCTION PANELon Albumin [Mass/Vol] 3.8 g/dL 3.5 - 5.0 g/dL [facility] ALP [Catalytic activity/Vol] 54 U/L 32 - 126 U/L [facility] ALT [Catalytic activity/Vol] 17 U/L 9 - 48 U/L [facility] AST [Catalytic activity/Vol] 23 U/L 10 - 39 U/L [facility] Bilirubin [Mass/Vol] 0.5 mg/dL NINF - 1.5 mg/dL [facility] Bilirubin.direct [Mass/Vol] 0.2 mg/dL NINF - 0.3 mg/dL [facility] Protein [Mass/Vol] 6.3 g/dL Low 6.4 - 8.3 g/dL [facility] MAGNESIUMon 05-22-2022 Magnesium [Mass/Vol] 1.4 mg/dL Low 1.6 - 2 .6 mg/dL [facility] No Panel Informationon 05-22 ABO/RH(D) TYPE Positive [facility] BLOOD COMPONENT TYPE Red Cells, Leukoreduced [facility] EXPIRATION DATE [facility] Product ABO/RH(D) Positive [facility] Product ABO/RH(D) NUMBER [id number] [facility] PRODUCT CODE [id number] [facility] UNIT STATUS released [facility] Interpretation and review of laboratory results Abnormal [facility] PHOSPHATE, INORGANICon 05-22 Interpretation and review of laboratory results Normal [facility] Phosphate [Mass/Vol] 3.3 mg/dL 2.2 - 4 .6 mg/dL [facility] POC ARTERIAL BLOOD GASon Base excess Calc (Bld) [Moles/Vol] -2.1000 mmol/L -3.0 - 3.0 mmol/L [facility] Calcium.ionized (Bld) [Mass/Vol] 4.22 mg/dL Low 4.60 - 5.30 mg/dL [facility] CO2 (Bld) [Partial pressure] 33 mm[Hg] [facility] Glucose [Mass/Vol] 127 mg/dL High 70 - 99 mg/dL [facility] HCO3 (Bld) [Moles/Vol] 22 mmol/L 22 - 28 mmol/L [facility] Hematocrit (Bld) [Volume fraction] 34.5 % 34.2 - 45.6 % [facility] Hemoglobin (Bld) [Mass/Vol] 11.3 g/dL Low 11.4 - 15.2 g/dL [facility] Interpretation and review of laboratory results Abnormal [facility] Lactate [Moles/Vol] 1.2 mmol/L 0.5 - 1. 6 mmol/L [facility] Oxygen (Bld) [Partial pressure] 230 mm[Hg] High [facility] Oxygen saturation in Blood 99 % [facility] pH (Bld) 7.42 [pH] 7.35 - 7.45 [facility] Potassium [Moles/Vol] 3.6 mmol/L 3.5 - 5.0 mmol/L [facility] Sodium [Moles/Vol] 137 mmol/L 135 - 145 mmol/L [facility] Specimen source Nom (Unsp spec) Arterial [facility] Test performed at address of the patient encounter. [facility] Base excess Calc (Bld) [Moles/Vol] 0.0 mmol/L -3.0 - 3.0 mmol/L [facility] Calcium.ionized (Bld) [Mass/Vol] 4.56 mg/dL Low 4.60 - 5.30 mg/dL [facility] CO2 (Bld) [Partial pressure] 38 mm[Hg] [facility] Glucose [Mass/Vol] 138 mg/dL High 70 - 99 mg/dL [facility] HCO3 (Bld) [Moles/Vol] 24 mmol/L 22 - 28 mmol/L [facility] Hematocrit (Bld) [Volume fraction] 34.7 % 34.2 - 45.6 % [facility] Hemoglobin (Bld) [Mass/Vol] 11.3 g/dL Low 11.4 - 15.2 g/dL [facility] Interpretation and review of laboratory results Abnormal [facility] Oxygen (Bld) [Partial pressure] 197 mm[Hg] High [facility] Oxygen saturation in Blood 99 % [facility] pH (Bld) 7.42 [pH] 7.35 - 7.45 [facility] Potassium [Moles/Vol] 3.4 mmol/L Low 3.5 - 5.0 mmol/L [facility] Sodium [Moles/Vol] 138 mmol/L 135 - 145 mmol/L [facility] Specimen source Nom (Unsp spec) Arterial [facility] Test performed at address of the patient encounter. [facility] PREPARE TO TRANSFUSE OR RED BLOOD CELLSon 05-22-2022 UNIT NUMBER [id number] [facility] UNIT NUMBER [id number] [facility] PROTIME-INRon 05-22-2022 INR Coag (Bld) [Relative time] 1.2 {INR} High 0.9 - 1.1 [facility] Interpretation and review of laboratory results Abnormal [facility] PT Coag (PPP) [Time] 14.8 s High [facility] TYPE AND SCREENon 05-22-2022 ABO/RH(D) TYPE Positive [facility] XR Abdomen Single viewon IMPRESSION: Appropriate position [...] of the nasogastric tube in the stomach. [facility]ative[facility] Single viewOrdere d By: Debora Burciaga on 05-22-2022 [facility] Work Phone: PREG HCG QUALon 04-08-2022 , QUAL Negative Normal NEGATIVE [facility] Comment on above: Performed By: #### P REG #### [facility] [address] [address] [address] Esthela Stevens Covid-19 PCR (CVDTBH)on 03-19 SARS-CoV-2 (COVID-19) RNA JORGE LUIS+probe Ql (Unsp spec) Not detected Normal NOT DETECTED [facility] Comment on above: Result Comment: This test is not yet approved or cleared by the [place] FDA. When there are no FDA-approved or cleared tests available, and other criteria are met, FDA can make tests available under an emergency access mechanism called an Emergency Use Authorization (EUA). The EUA for this test is supported by the [place] of Health and Human Service's (HHS's) declaration [...] By: #### L IVER, LDH, BMP #### [facility] [address] [address] [address] Abdomen and Pelvis W cont anton Jason 04-01-2022 IMPRESSION: No evidence of metastatic [...] error, please notify the sender immediately at [phone] and permanently delete the original report and [...] error, please notify the sender immediately at [phone] and permanently delete the original report and destroy any copies or printouts. [facility] CT Abdomen and Pelvis W cont rast IVOrdered By: Avinash Miller on 04-01-[address] [facility] [address] Chest W contrast Jason IMPRESSION: 1. [...] 1. No evidence for intrathoracic metastatic disease [facility] CT Chest W contrast IVOrdere d By: Yovany Bills on 03-31-2022 [facility] Work Phone: No Panel Informationon 03-31 Radiology Study observation (narrative) [facility] CBC AND ELECTRONIC DIFFon Basophils (Bld) [#/Vol] 0.05 10*3/uL 0.00 - 0.15 K/uL [facility] Basophils/100 WBC (Bld) 0.6 % [facility] Differential cell count method Nom (Bld) Electronic Differential [facility] Eosinophils (Bld) [#/Vol] 0.07 10*3/uL 0.00 - 0.42 K/uL [facility] Eosinophils/100 WBC (Bld) 0.8 % [facility] Erythrocyte distribution width (RBC) [Ratio] 13.4 % 10.8 - 14.9 % [facility] Hematocrit (Bld) [Volume fraction] 37.9 % 34.9 - 44.3 % [facility] Hemoglobin (Bld) [Mass/Vol] 11.9 g/dL 11.4 - 15.2 g/dL [facility] Immature granulocytes (Bld) [#/Vol] 0.04 10*3/uL <=0.08 [facility] Immature granulocytes/100 WBC (Bld) 0.5 % [facility] Interpretation and review of laboratory results Abnormal [facility] Lymphocytes (Bld) [#/Vol] 2.33 10*3/uL 1.16 - 3.51 K/uL [facility] Lymphocytes/100 WBC (Bld) 27.4 % [facility] MCH (RBC) [Entitic mass] 26.3 pg 25.9 - 33.9 pg [facility] MCHC (RBC) [Mass/Vol] 31.4 g/dL 31.4 - 35.9 g/dL [facility] MCV (RBC) [Entitic vol] 83.8 fL 79.6 - 97.7 fL [facility] Monocytes (Bld) [#/Vol] 0.46 10*3/uL 0.22 - 0.87 K/uL [facility] Monocytes/100 WBC (Bld) 5.4 % [facility] Neutrophils (Bld) [#/Vol] 5.55 10*3/uL 1.64 - 7.28 K/uL [facility] Nucleated RBC/100 WBC (Bld) [Ratio] 0.0 % <=0.2 /100 WBC [facility] Platelet mean volume (Bld) [Entitic vol] 10.0 fL 8.5 - 12.2 fL [facility] Platelets (Bld) [#/Vol] 402 10*3/uL High 150 - 393 K/uL [facility] RBC (Bld) [#/Vol] 4.52 10*6/uL [facility] Segmented neutrophils/100 WBC (Bld) 65.3 % [facility] WBC (Bld) [#/Vol] 8.50 10*3/uL 3.99 - 11. 19 K/uL [facility] COMPREHENSIVE METABOLIC PANE Shamir 03-19-2022 Albumin [Mass/Vol] 4.5 g/dL 3.5 - 5.0 g/dL [facility] ALP [Catalytic activity/Vol] 67 U/L 32 - 126 U/L [facility] ALT [Catalytic activity/Vol] 15 U/L 9 - 48 U/L [facility] Anion gap [Moles/Vol] 16 mmol/L 7 - 17 mmol/L [facility] AST [Catalytic activity/Vol] 14 U/L 10 - 39 U/L [facility] Bilirubin [Mass/Vol] 0.4 mg/dL <1.5 [facility] Calcium [Mass/Vol] 9.8 mg/dL 8.6 - 10. 5 mg/dL [facility] Chloride [Moles/Vol] 100 mmol/L 98 - 10 8 mmol/L [facility] CO2 [Moles/Vol] 27 mmol/L 21 - 31 mmol/L [facility] Creatinine [Mass/Vol] 0.66 mg/dL 0.50 - 1.20 mg/dL [facility] GFR/1.73 sq M.predicted CKD-EPI (S/P/Bld) [Vol rate/Area] >90 >=60 mL/min/1.73m2 [facility] Comment on above: Reported eGFR is bas ed on the CKD-EPI 2020 equation using creatinine, age, and sex. Glucose [Mass/Vol] 73 mg/dL 70 - 99 mg/dL [facility] Osmolality Calc [Osmolality] 287 [facility] Potassium [Moles/Vol] 3.6 mmol/L 3.5 - 5.0 mmol/L [facility] Protein [Mass/Vol] 7.4 g/dL 6.4 - 8.3 g/dL [facility] Sodium [Moles/Vol] 139 mmol/L 135 - 145 mmol/L [facility] Urea nitrogen [Mass/Vol] 10 mg/dL 7 - 25 mg/dL [facility] Urea nitrogen/Creatinine [Mass ratio] 15 mg/mg [facility] PT,INR,PTTon 03-19-2022 aPTT Coag (PPP) [Time] 36.5 s [facility] INR Coag (Bld) [Relative time] 1.2 {INR} [facility] Interpretation and review of laboratory results Abnormal [facility] PT Coag (PPP) [Time] 14.6 s High [facility] CBC AUTO DIFFon 02-03-2022 BASO # 0.1 103/ul Normal 0.0-0.1 [facility] Comment on above: Performed By: #### L IVER, LDH, BMP #### [facility] [address] [place] [address] Dr. Esthela Stevens Basophils/100 WBC (Bld) 0.5 % Normal 0.2-2.0 [facility] Comment on above: Performed By: #### L IVER, LDH, BMP #### [facility] [address] [place] [address] Dr. Esthela Stevens EO # 0.1 103/ul Normal 0.0-0.7 [facility] Comment on above: Performed By: #### L IVER, LDH, BMP #### [facility] [address] [place] [address] Dr. Esthela Stevens Eosinophils/100 WBC (Bld) 1.2 % Normal 0.9-7.0 [facility] Comment on above: Performed By: #### L IVER, LDH, BMP #### [facility] [address] [place] [address] Dr. Esthela Stevens Erythrocyte distribution width (RBC) [Ratio] 13.2 % Normal 11.0-15.0 [facility] Comment on above: Performed By: #### L IVER, LDH, BMP #### [facility] [address] [place] [address] Dr. Esthela Stevens Hematocrit (Bld) [Volume fraction] 38.4 % Normal 36.0-48.0 [facility] Comment on above: Performed By: #### L IVER, LDH, BMP #### [facility] [address] [place] [address] Dr. Esthela Stevens Hemoglobin (Bld) [Mass/Vol] 12.2 g/dL Normal 12.0-16.0 [facility] Comment on above: Performed By: #### L IVER, LDH, BMP #### [facility] [address] [place] [address] Dr. Esthela Stevens IG # 0.06 10e3/ul Critically high 0.00-0.03 [facility] Comment on above: Performed By: #### L IVER, LDH, BMP #### [facility] [address] [place] [address] Dr. Esthela Stevens IG % 0.6 % Critically high 0.0-0.5 [facility] Comment on above: Performed By: #### L IVER, LDH, BMP #### [facility] [address] [place] [address] Dr. Esthela Stevens LYMPH # 2.1 103/ul Normal 1.2-3.8 [facility] Comment on above: Performed By: #### L IVER, LDH, BMP #### [facility] [address] [place] [address] Dr. Esthela Stevens Lymphocytes/100 WBC (Bld) 21.7 % Normal 20.5-60.0 [facility] Comment on above: Performed By: #### L IVER, LDH, BMP #### [facility] [address] [place] [address] Dr. Esthela Stevens MANUAL DIFF REQ NO Normal [facility] Comment on above: Performed By: #### L IVER, LDH, BMP #### [facility] [address] [place] [address] Dr. Esthela Stevens MCH (RBC) [Entitic mass] 26.5 pg Critically low 26.7-34.0 [facility] Comment on above: Performed By: #### L IVER, LDH, BMP #### [facility] [address] [place] [address] Dr. Esthela Stevens MCHC (RBC) [Mass/Vol] 31.8 g/dL Normal 29.9-35.2 [facility] Comment on above: Performed By: #### L IVER, LDH, BMP #### [facility] [address] [place] [address] Dr. Esthela Stevens MCV (RBC) [Entitic vol] 83.5 fL Normal 81.0-99.0 [facility] Comment on above: Performed By: #### L IVER, LDH, BMP #### [facility] [address] [place] [address] Dr. Esthela Stevens MONO # 0.7 103/ul Normal 0.3-0.8 [facility] Comment on above: Performed By: #### L IVER, LDH, BMP #### [facility] [address] [address] [address] Esthela Stevens Monocytes/100 WBC (Bld) 7.5 % Normal 1.7-12.0 [facility] Comment on above: Performed By: #### L IVER, LDH, BMP #### [facility] [address] [address] [address] Esthela Stevens NEUT # 6.8 103/ul Critically high 1.4-6.5 [facility] Comment on above: Performed By: #### L IVER, LDH, BMP #### [facility] [address] [place] [address] Dr. Esthela Stevens Neutrophils/100 WBC (Bld) 68.5 % Normal 43.0-75.0 [facility] Comment on above: Performed By: #### L IVER, LDH, BMP #### [facility] [address] [place] [address] Dr. Esthela Stevens Platelet mean volume (Bld) [Entitic vol] 9.4 fL Critically low 9.5-13.5 [facility] Comment on above: Performed By: #### L IVER, LDH, BMP #### [facility] [address] [place] [address] Dr. Esthela Stevens PLT 403 103/ul Normal 150-450 [facility] Comment on above: Performed By: #### L IVER, LDH, BMP #### [facility] [address] [place] [address] Dr. Esthela Stevens RBC 4.60 106/ul Normal 4.20-5.40 [facility] Comment on above: Performed By: #### L IVER, LDH, BMP #### [facility] [address] [place] [address] Dr. Esthela Stevens WBC 9.9 103/ul Normal 4.0-11.0 [facility] Comment on above: Performed By: #### L IVER, LDH, BMP #### [facility] [address] [place] [address] ABD/PELV W CONon 02-04-[address] ABD/PELV W CON EXAMINATION: CT ABD/PELV [...] CAROLYN WALSH Date: 2022-02-03 12:14 Normal [facility] Covid-19 PCR (CVDTB)on 01-16 SARS-CoV-2 (COVID-19) RNA JORGE LUIS+probe Ql (Unsp spec) Not detected Normal NOT DETECTED [facility] Comment on above: Result Comment: When [...] for this test is supported by the [place] of Health and Human Service's declaration that [...] By: #### L IVER, LDH, BMP #### [facility] [address] [place] [address] Dr. Esthela Stevens ER URINE PROFILEon 2 Bilirubin Ql (U) Negative Normal NEGATIVE [facility] Comment on above: Performed By: #### E LAURA UMICRO #### [facility] [address] [place] [address] Dr. Esthela Stevens Clarity (U) CLEAR Normal CLEAR [facility] Comment on above: Performed By: #### Toñito SANCHEZ UMICRO #### [facility] [address] [place] [address] Dr. Esthela Stevens Color (U) LT. YELLOW Normal YELLOW [facility] Comment on above: Performed By: #### E LAURA UMICRO #### [facility] [address] [place] [address] Dr. Esthela Stevens ERUD A micrscopic examination will be performed if indicated. Normal [facility] Comment on above: Performed By: #### Toñito SANCHEZ UMICRO #### [facility] [address] [place] [address] Dr. Esthela Stevens Glucose Ql (U) Negative Normal NEGATIVE [facility] Comment on above: Performed By: #### Toñito SANCHEZ UMICRO #### [facility] [address] [place] [address] Dr. Esthela Stevens Hemoglobin Ql (U) Negative Normal NEGATIVE [facility] Comment on above: Performed By: #### Toñito SANCHEZ UMICRO #### [facility] [address] [place] [address] Dr. Esthela Stevens Ketones Ql (U) Negative Normal NEGATIVE [facility] Comment on above: Performed By: #### Toñito SANCHEZ UMICRO #### [facility] [address] [place], [place] [id number] Dr. Esthela Stevens LEUKOCYTES SMALL Abnormal NEGATIVE [facility] Comment on above: Performed By: #### Toñito SANCHEZ UMICRO #### [facility] [address] [place] [address] Dr. Esthela Stevens Nitrite Ql (U) Negative Normal NEGATIVE [facility] Comment on above: Performed By: #### Toñito SANCHEZ UMICRO #### [facility] [address] [place] [address] Dr. Esthela Stevens pH (U) 7.0 [pH] Normal 5-9 [facility] Comment on above: Performed By: #### MERISSA WALLACEICRO #### [facility] [address] [place] [address] Dr. Esthela Stevens SPEC GRAVITY 1.015 Normal 1.005-<=1.025 [facility] Comment on above: Performed By: #### MERISSA WALLACEICRO #### [facility] [address] [place] [address] Dr. Esthela Stevens UA PROTEIN Negative Normal NEGATIVE/ TRACE [facility] Comment on above: Performed By: #### MERISSA WALLACEICRO #### [facility] [address] [place] [address] Dr. Esthela Stevens UR MICRO IND INDICATED Normal [facility] Comment on above: Performed By: #### MERISSA WALLACEICRO #### [facility] [address] [place] [address] Dr. Esthela Stevens Urobilinogen Qn (U) 0.2 {Emeka'U}/dL Normal 0.2 - 1. 0 [facility] Comment on above: Performed By: #### Toñito SANCHEZ UMICRO #### [facility] [address] [place] [address] Dr. Esthela Stevens LACTATE/LACTIC ACIDon 2021 Lactate [Moles/Vol] 1.3 mmol/L Normal 0.4-1.9 [facility] Comment on above: Performed By: #### P REG #### [facility] [address] [place] [address] Dr. Esthela Stevens LIPASEon 02-03-2022 Lipase [Catalytic activity/Vol] 58.0 U/L Critically low 73.0-393.0 [facility] Comment on above: Performed By: #### L IPA, CMP #### [facility] [address] [address] [address] Esthela Stevens PREG HCG QUALon 02-03-2022 , QUAL Negative Normal NEGATIVE [facility] Comment on above: Performed By: #### L IVER, LDH, BMP #### [facility] [address] [address] [address] Esthela Stevens PROF 14(COMP METB)on 022 Albumin [Mass/Vol] 3.8 g/dL Normal 3.4-5.0 [facility] Comment on above: Performed By: #### L IPA, CMP #### [facility] [address] [place] [address] Dr. Esthela Stevens Albumin/Globulin [Mass ratio] 1.0 {ratio} Normal [facility] Comment on above: Performed By: #### L IPA, CMP #### [facility] [address] [address] [address] Esthela Stevens ALP [Catalytic activity/Vol] 75 U/L Normal 46-116 [facility] Comment on above: Performed By: #### L IPA, CMP #### [facility] [address] [place] [address] Dr. Esthela Stevens ALT [Catalytic activity/Vol] 37 U/L Normal 14-59 [facility] Comment on above: Performed By: #### L IPA, CMP #### [facility] [address] [address] [address] Esthela Stevens Anion gap [Moles/Vol] 14.0 mmol/L Normal [facility] Comment on above: Performed By: #### L IPA, CMP #### [facility] [address] [address] [address] Esthela Stevens AST [Catalytic activity/Vol] 14 U/L Critically low 15-37 [facility] Comment on above: Performed By: #### L IPA, CMP #### [facility] [address] [address] [address] Esthela Stevens Bilirubin [Mass/Vol] 0.2 mg/dL Normal 0.2-1.0 [facility] Comment on above: Performed By: #### L IPA, CMP #### [facility] [address] [address] [address] Esthela Stevens Calcium [Mass/Vol] 8.9 mg/dL Normal 8.5-10.1 [facility] Comment on above: Performed By: #### L IPA, CMP #### [facility] [address] [address] [address] Esthela Stevens Chloride [Moles/Vol] 103 mmol/L Normal 98-107 [facility] Comment on above: Performed By: #### L IPA, CMP #### [facility] [address] [place] [address] Dr. Esthela Stevens CO2 [Moles/Vol] 25.2 mmol/L Normal 21.0-32.0 [facility] Comment on above: Performed By: #### L IPA, CMP #### [facility] [address] [address] [address] Esthela Stevens Creatinine [Mass/Vol] 0.72 mg/dL Normal 0.55-1.02 [facility] Comment on above: Performed By: #### L IPA, CMP #### [facility] [address] [address] [address] Esthela Stevens EGFR-AF CUBAN >60 Normal >=60 [facility] Comment on above: Performed By: #### L IPA, CMP #### [facility] [address] [address] [address] Esthela Stevens EGFR-NON AF CUBAN >60 Normal >=60 [facility] Comment on above: Performed By: #### L IPA, CMP #### [facility] [address] [address] [address] Esthela Stevens Globulin (S) [Mass/Vol] 3.7 g/dL Normal [facility] Comment on above: Performed By: #### L IPA, CMP #### [facility] [address] [address] [address] Esthela Stevens Glucose [Mass/Vol] 101 mg/dL Normal 74-106 [facility] Comment on above: Performed By: #### L IPA, CMP #### [facility] [address] [place] [address] Dr. Esthela Stevens Potassium [Moles/Vol] 4.2 mmol/L Normal 3.5-5.1 [facility] Comment on above: Performed By: #### L IPA, CMP #### [facility] [address] [place] [address] Dr. Esthela Stevens Protein [Mass/Vol] 7.5 g/dL Normal 6.4-8.2 [facility] Comment on above: Performed By: #### L IPA, CMP #### [facility] [address] [place] [address] Dr. Esthela Stevens Sodium [Moles/Vol] 138 mmol/L Normal 136-145 [facility] Comment on above: Performed By: #### L IPA, CMP #### [facility] [address] [place] [address] Dr. Esthela Stevens Urea nitrogen [Mass/Vol] 11.0 mg/dL Normal 7.0-18.0 [facility] Comment on above: Performed By: #### L IPA, CMP #### [facility] [address] [place] [address] Dr. Esthela Stevens Urea nitrogen/Creatinine [Mass ratio] 15.3 mg/mg Normal [facility] Comment on above: Performed By: #### L IPA, CMP #### [facility] [address] [place] [address] Dr. Esthela Stevens URINE MICROSCOPIC ONLYon BACTERIA NONE SEEN Normal NONE SEEN [facility] Comment on above: Performed By: #### MAKENZIE WALLACE #### [facility] [address] [place] [address] Dr. Esthela Stevens Bacteria identified Cx Nom (U) NOT INDICATED Normal [facility] Comment on above: Performed By: #### MAKENZIE WALLACE #### [facility] [address] [place] [address] Dr. Esthela Stevens CAST NONE SEEN Normal NONE SEEN [facility] Comment on above: Performed By: #### Toñito SANCHEZ, UMICRO #### [facility] [address] [place] [address] Dr. Esthela Stevens Crystals LM Nom (Urine sed) NONE SEEN Normal NONE SEEN [facility] Comment on above: Performed By: #### Toñito SANCHEZ, UMICRO #### [facility] [address] [place] [address] Dr. Esthela Stevens Epithelial cells LM Ql (Urine sed) FEW Abnormal NONE SEEN /RARE [facility] Comment on above: Performed By: #### Toñito SANCHEZ, UMICRO #### [facility] [address] [place] [address] Dr. Esthela Stevens MUCOUS NONE SEEN Normal NONE SEEN [facility] Comment on above: Performed By: #### Toñito SANCHEZ UMICRO #### [facility] [address] [place] [address] Dr. Esthela Stevens RBC 0-2 Normal 0-2 [facility] Comment on above: Performed By: #### Toñito SANCHEZ UMICRO #### [facility] [address] [place] [address] Dr. Esthela Stevens WBC 2-5 Abnormal NONE SEEN [facility] Comment on above: Performed By: #### Toñito SANCHEZ, UMICRO #### [facility] [address] [place] [address] Dr. Esthela Stevens Test, Urineon Beta HCG ( test) Ql (U) Negative [employer] Other Urinalysis - AUTOMATEDon Appearance (U) clear [employer] Other Bilirubin Ql (U) Negative [employer] Other Color (U) yellow [employer] Other Glucose Ql (U) Negative [employer] Other Hemoglobin Ql (U) Negative [employer] Other Ketones Ql (U) 15 [employer] Other Leukocyte esterase Test strip Ql (U) Negative [employer] Other Nitrite Ql (U) Negative [employer] Other pH (U) 7.0 [pH] [employer] Other Protein Ql (U) Negative [employer] Other Specific gravity (U) [Rel density] 1.020 [employer] Other Urobilinogen (U) [Mass/Vol] 0.2 mg/dL [employer] Other Urinalysis - AUTOMATED [employer] Other Coding Summary.on 02-18-2021 Coding Summary. [id number] Gh0bWw+PGhlYWQ+PE1FV AGbQ79nlNHbbC3PF6sCQ Q0FHMTPTUGUQC1CCZ4tj GG9ERjnW1CtpjRa DnjimRIjRA72TBc4PBM1 cMybSGuoyO1pnOQiT2i5 NvTwJH37vM46ENbfKDEz VrA7ZlPuakwtbEPn P9pkDrFlgZTvNtu+PHRh YmxlIHdpZHRoPScxMDAl VvVzlKhbBM3oCl3rPYZq LWNvbGxhcHNlOiBj k7bsSRMpFIebOW7anIfk O9YaeXM4CXCeu5v7Mi17 dHI+VRBzDZM8tHfxSXpk z520TlVjl5jaRTL0 yTYaIUizSWJ4D72ha2W9 HNPvFGOuIHY4eJX7nT6s hCuhpbdiJ8UgwWIcEvN7 WPF6oYTahL1plHqb rsyrjD5jRqr+U85YBO8I FAQCSP4JDom3V5KdUogw dHI+TL41ZDGoUW32xWHi fOVdb7gepOm5AuYk UVLhWEN7mQrrVNroz4Dl OOFtK84lwZIaj8V8SREt gZgqoJZlKpNduGZ4mJ3u QMzkdhahu7abqblk Aiesw7drsu56fB99I68g NXknYPIuEZR3CPQtUQBk dKybbw0vkU5tIw2+IDxj z7bvr0yyeTv5DbEj RPSafgJqcVvhIAB7t8Ej Ya14H7ZhzGvkp5DlDng2 ah46zPBdv8K3zJK2IVly XNKypW2mECphPlW5 QTCcZzKfrN57lCDzUBpd Xz6uvZcbwBymTU2xILTd yegyCHBfpX3oEMSrbMFm jDjqHB5nOFTnrvqb t575WaOlXGX0SRDuqCPs N4QdkT6nNmVgQGJmPUPb H5GtcKMqACoqW993KStc UtX6AMQjlrBxX4Qe XTYyrNdlDfX1o2F3Vq2Q p5ZgdizaXZR3XTxuSMC4 ZaDaJdHxUhI6Y0IgFie8 JIEeaGosPX4lC3Hk VQBptkdmemceqZC6WBQa VPQuiA92zLDoUDomKt7v r1X4p151LFLcYKCmqJ03 Zs0rnUqeHSPnhBQH oJ0yapghf8vibzmnXmDm URPeUHb3CXh8ECKetVab CjBkBZY3HqH3JSU2dMGs jC2yfHzkrzapwW8k Oyc+O69ngP0oDZJ6DMZ0 yomvUYYuzbJiPY89EB07 R4CiYkksgQQdtKI+PGRp znPtsYosKR9tOxHb c9uoq4YzGNoxF7PiIVLo DCteGli3WHYzZOF6bQS0 mX2dZZCfXVgkm3C9nCQ2 T5AasdJmav4sz3ph PJApJKeuU51baUFjv5I3 SYLmzUM0TYWojPuxHrYx qQ14Flp+SAFneTixl2Bs Saksl4jsy9orrCd3 IjMwJSIgdmFsaWduPSJ0 h5NtLl44V11iFKysYWMq LKPkUBFiJCEmqDjdml9p cL2wYg9+PGNvbCB3 qMJ6eC4aKMIyIaN8TXch C057DiNbdMGsOgfac0nz m9wmvNz7EvEhQRMdsoFt lXjcNXW1u1PgCx97 Z09lZAkrMMObKHKnWJZi DYXvgHlytr9xvN3lIk3+ VW0ek8enxj16mF79cFD+ JSQzJOL0bEjiVWpe VOQgqY0mNQpgHvS5IUSl KmTzgG64hMKcLNndSq6z dIvibPcuHA1iXSCgrvqn s746GeAwq8bvXBQm aQIyHFypUGJ2W30gb3B5 ZFRgHRYxLXR3sHZ6wW1u bGlnbjogbGVmdDsgdmVy nTzzRMwaWIlwU357 IHRvcDsnPlBhdGllbnQg UeWwOWx1F3LnYwx5VTAv jJiqZO7feBIiJNqeQq5y fIcxyVkeTY8jDPLe qgbjy698QuSxo4buHFQy gLXbWFbrWSY8G18eh0S8 DXSpKAMxAAP4uFY3zS9v bGlnbjogbGVmdDsg yeGryCjyRHrwRLwkK256 IHRvcDsnPkJpcnRoIERh zTT2AB60KO17dAInv4F0 xCY7X9DlGZTiuqnv btjyuBC0AQXbCZAgaX98 Aa4jsLniJx4bIRFrGCY8 MUEurLTuA5XlcJ3zGqCn DNKvBUUfQ0JgpAOw EFsnU682NCiaTlE8SSUg vuTeH8HbYLZneSgyInI5 k8F2Kb9YB2A3HA34AY54 nFYft8V2fBJ0P7Yp LHWgjbndrdrstSM7FSHk XWZmmF10Cu5zvKxmOe1d LIHhKVC7NGOodNBaH5Pc gH4bGvEhGTZiPWXm W5MayWCnYUipJ655VRhn TxE2JSDoklMuH3IsTOQi cKkqZsX6x8N7Dn5ONFq9 XY51UH74aYRmz3L4 jZS2B0ZaQASmlugowecw yRY5DFZjPAWnaE44Yl3d gVvbBu4xYMElPMF9QDQg zNGvC2YtaK8tSlWu KKQhECMcL7GlkRYwUTzl T705SZyhSaG5OVQqdeJt V6DfPYLrkJfiSgS8v2P1 Lk4DBIUrXB12EQT4 pMT5NQ64XI29F1MuTphp dGFibGU+PHRhYmxlIHdp ZHRoPScxMDAlJyBzdHls HL1nEs4hDMKvBBYx hOofpFNzKvMiy7dlILUg AJhaPG1zsQzsB1ZztUA0 PRNto5c9Js25R74hL6Pz dXA+SGBeoFC6dRQ0 eS9oVcJgPgL8LMhfH657 OkQyaVBwQqjxe3kic2bm gKi6EaV3IGUsnlBgnVkl WNP9d4QvKo12U85w IHdpZHRoPSIxNSUiIHZh hLtrzf8ofN1vJk6+PGNv mAW2cSP8vK2tCfRqPlS4 EIixB414UfJhwVNu Wmsmg8xrv1hvkVr8UaSk EPPwgnWsdPuzDWG8g2Ay Lj32P3LqoWilt2CbVhz7 yt24hLYtw2L7yYT7 E6KaWOIefqjapKZohTyl EY4lBFNwctsdXSNruU5a HHRrV0f1PvBiYnF4KPdl T0EbknQ3QFWqoKEp JVacULG8C44tz5H5WNFr BSRvHTE6wBS3yG9gvLun bjogbGVmdDsgdmVydGlj QYgvAQvlC011KFTm vGvrGQEzwE8jGRKweFFj dEupKW5gMZTvurchLmfP EIbQInrrL4BMCXBSAXm8 C4OuRuf5PDMuvSyh AZ7qzMZnOVhoOa6ndXkh kBxkRB5bUUSpwtzdCFQc sW7wJWWlqVBkrTmqZZ0m BTTyfspgr495UpGv NUJ6SBUumOQpV8GrmC5v MyCaJXGjCSTiZ1IrsQOi LEwjD339ENbrNhU0IYXt lwKzU4BxVBXcyNbs OwP8d8T0Uf2nBC5nYY3w NRv6UC91OM82hBKrc3T0 xGC8O5QhTRWtsulxtuot fOW6TQMvIZYzpB72 rESpFKtsHa0da1Z9g942 BVTmZFTpjV45Kp5ydFxy YXWrmMPExY8rqxvot0fz cjogIzAwMDAwMDt0 NCk6GCMgaFaqEnWkRNZ4 QtK6XOF5kKBfmW0dwHgw ghtejJ1vAso+MjMgWWVh nwJ8J9BpAuq3WFRa eKxrQI4cxROcLKvvSf1h nVfpiXeiKJ4cETHjxthd LAHtyQ6fOLRgmWIfuQqo JR2mWNLcfkntz246 XgUrOKZ1QFHirFAjL9Ki nY8oGlHjJOHxRYKbJ2Ow nWRoAGlnG163FViiZaZ9 TCLtaiMiH4GeKLKr mTevYnV3w3O7Bu3JYC9q xLQ3K6GrMad0VQQpzDhz SJ1pgZRsQVzeZb0csHmx hKxvCE8mJVVtjfho UXRqdE0rTWIjmFYovQhm AB5wYJBxvvmwh744XeNt VWE2JZVqmHXuZ3YrqV0s TjQiXSVqBHPyJ1An vPJzEZfsE988KWwvJvS8 DZZpqvUpU1KpOUCdtOed VsO8w5B9Qi5ToEIiC3Kb Y3o3C4DpSwbvpIB+ FP68THGmKY25qAFnoRAl s7lxuGf9RyQkQRPdKQJ4 fCihENcfi6BnQNHxE14x pJJjw9V6MGPhsYjr hXTbLgNuuHL9fW9aBCqt isbqp0ihrgduCtxtx8yt to90kL01R29dJWemMFJr PSIzMCUiIHZhbGln it9ryK2iUs0+PGNvbCB3 pAA6aQ4iSwRePpE8DLqb P784RkZzvQLwVmshw7rm g7fyjXx1XtFjNUDa nfBjjBwjPXV4i6SmQs89 R91wXRxnPIBrKXChZVJz IQLabIaidz0jpI5eNh3+ PQ0bs5wtbj49wR63 dHI+EHMxGKV6vHbkEFpq MVYbaM2dRKozRhO2DUBh EyStkF93zZEdLTzpOg2n pImlpIhaFL3uGKYz dctfg154BhTqr6mmTUVh hMUoVYcsVVP5W92kh0N0 OAZcODEqAJL0jMI4eM6e bGlnbjogbGVmdDsg tiJgzMqfZWluYUrgO804 FQPljPzdEhOoqXRiA7ie wfLHKD8pAmwxsAP+PHRk DCH9nOzpSCfaRRXc qI1qVBYcE9y0DrIlOdL2 UIxbL3RgiqN0URDwvEMq GZEbiAEGuK0zasmyk1rv cjogIzAwMDAwMDt0 KEw8RPIcyLwiInCbEPZ1 ViL6TCA5aBHazJ3cwRqx uvqcyQ3wWhs+RklOOjwv dGQ+GJKxZIA7lZjd TOrpLKOizX7cKFTiG2u0 SoSlFyK1IVhiC6UpyjS6 AAWhqIAdCIFayZRBjB1a rityq1wacyvcRwTe WZNhUXc3RBr0OKAriQvu KcHbDII2YzH2OQF0dKYq kI6ytDbdnjpwzQ4gElp+ TVJOOjwvdGQ+PHRk DXK8nWgiAHeuUJQueN1b YDAjP6a1FsByQeD5UOkk H1KedqL6AJNnxQKtWEAl iMVDyK1elwwho4dk brggFzUlVKOlORe1YQf4 VOSqoWziQjVqHNO1OfH0 LXT9sJSubF9lmSvcvipc lE1dEbe+VRL3RQR7 JS52JX78H7RbBjozhTIw bGU+PHRhYmxlIHdpZHRo JEhtKKBmGnBwjAcoQV3r Ws5qXGHmVGYfjYnp cHNl (more content not included)... Normal [facility] Consent for Treatmenton Consent for Treatment [id number] #1.00CD:127 Normal [facility] Discharge Instructionson Discharge Instructions [id number] 3#1.00CD:127 Normal [facility] ED Clinical Summaryon 2020 ED Clinical Summary [address] [id number] ED Clinical Summary Person Information Name: ZAINAB MCCLURE [place] Age: 25 Years : 1995 Sex: Female Language: Yoruba PCP: ERIN SAMS CNP Marital Status: Single [...] 02/17/2021 11:52:53 02/17/2021 11:52:53 ADDRESS: [address] [place] [phone] PHYS DOC NOTES: MEDICAL INFORMATION: Prescriptions Given: New Medications Printed Prescriptions lorazepam (Ativan 1 mg Tab) 1 Tablets By Mouth every 8 hours for 2 Days. Take one by mouth every eight hours as needed. Refills: 0. PATIENT EDUCATION INFORMATION: Instructions: Suicidal Feelings: How to Help Yourself; Managing Anxiety, Adult Follow up: With: Address: When: [facility] In 1 day 02/18/2021 With: Address: When: ERIN SAMS [address] [place] [address] [phone] Business (1) In 3 days DIAGNOSIS: Anxiety; Suicidal ideation Normal [facility] ED Note-Physicianon 02-18-20 ED Note-Physician Basic [...] Oral, q8hr Follow-up With When Contact Information [facility] In 1 day 02/18/2021 EDT Additional Instructions: ERIN SAMS In 3 days [address] [facility], [place] [address]- [phone] Business (1) Additional Instructions: Patient Education Suicidal Feelings: How to Help Yourself Managing Anxiety, Adult Problem List/Past Medical History Ongoing No qualifying data Historical No qualifying data Medications Inpatient No active inpatient medications Home No active home medications Allergies No Known Medication Allergies Lab Results No qualifying data available. Diagnostic Results No qualifying data available. Normal [facility] Comment on above: Result Comment: Elec [...] services (911 in the [place] ? The [facility] and [facility] helpline (211 in the [place] ? Go to your nearest emergency department. ? Call a suicide hotline to speak with a trained counselor. The following suicide hotlines are available in the [place]: ? 8-196-637-TALK ( ). ? 9-007-QZYNJGQ ( ). ? . This is a hotline for Sami speakers. ? . This is a hotline for TTY users. ? 0-574-8-U-RAMILA ( ). This is a hotline for lesbian, escobar, bisexual, transgender, or questioning youth. ? For a list of hotlines in [place], visit www.suicide.org/hotl zeferino/international/c amlaq-wojlith-cawris es.html ? Contact a crisis center or [...] list of crisis centers in [place], visit: suicideprevention.ut How to help yourself feel better ? [...] even if you do not feel sociable. Lcrl-zo-tyqd conversation is best to help them understand [...] can help you feel better. ? Take wurj-srj-xlllojb and prescription medicines only as told by [...] Lifeline: www.suicidepreventio nlifeline.org ? Hopeline: www.hopeline.com ? [employer] for Suicide Prevention: www.afsp.org ? The Ramila Project (for lesbian, escobar, bisexual, transgender, or questioning youth): www.thetrevorproject .org Contact a health care provider if: ? You feel as though you are a burden to others. ? You feel agitated, angry, vengeful, or have extreme mood swings. ? You have withdrawn from family and friends. Get (more content not included)... Normal [facility] ED Patient Summaryon 021 ED Patient Summary [place] [id number] Patient Discharge Instructions Person Information Name: ZAINAB MCCLURE Age: 25 Years Arrival Date: 02/17/2021 09:42:11 Discharge Diagnosis: Anxiety; Suicidal ideation Primary Care Physician: ERIN SAMS CNP Provider Information Primary Provider: Vinicius Childers DO [place] Coordinator:None The exam and treatment you received in the Emergency Department were for an urgent problem and are not intended as complete care. It is important that you follow up with a doctor, nurse practitioner, or physician?s funeral director's assistant for ongoing care. If your symptoms become worse or you do not improve as expected and you are unable to reach your usual health care provider, you should return to the Emergency Department. We are available 24 hours a day. ZAINAB MCCLURE has been given the following list of patient education materials, prescriptions and follow-up instructions: Follow-up Instructions: With: Address: When: [facility] In day 02/18/2021 With: Address: When: ERIN SAMS [address] [place] [address] [phone] Business (1) In 3 days In the [...] opioids can be used to help relieve orepseeq-jt-hgnjkd pain and are often prescribed following a [...] care professio (more content not included)... Normal [facility] Valuables Checkliston 2020 Valuables Checklist [id number] 6#1.00CD:127 Normal [facility] Vital Signs Date Time Vital Sign Value Performing Clinician Facility 11-26-2023 09:32-0400 Body height 154.9 cm Dolores Leonardmg [employer] Work Phone: [facility] 11-26-2023 09:32-0400 Body mass index (BMI) [Ratio] 30.61 kg/m2 Dolores Johnson [employer] Work Phone: [facility] 11-26-2023 09:32-0400 Body weight 73.48 kg Dolores Johnson [employer] Work Phone: [facility] 11-26-2023 09:32-0400 Diastolic blood pressure 76 mm[Hg] Dolores Johnson [employer] Work Phone: [facility] 11-26-2023 09:32-0400 Heart rate 65 /min Dolores Leonardman [employer] Work Phone: [facility] 11-26-2023 09:32-0400 Respiratory rate 16 /min Dolores Johnson [employer] YE[employer] Work Phone: [facility] 11-26-2023 09:32-0400 SaO2% (BldA) [Mass fraction] 98 % Dolores Johnson [employer] YE[employer] Work Phone: [facility] 11-26-2023 09:32-0400 Systolic blood pressure 110 mm[Hg] Dolores Johnson [employer]ED YE[employer]PER[employer] Work Phone: [facility] 08-24-2023 10:09-0500 Body mass index (BMI) [Ratio] 32.44 kg/m2 Ron Alden DO Work Phone: [facility] 08-24-2023 10:09-0500 Body weight 83.06 kg Ron Alden DO Work Phone: [facility] 08-24-2023 10:09-0500 Diastolic blood pressure 68 mm[Hg] Ron Alden DO Work Phone: [facility] 08-24-2023 10:09-0500 Systolic blood pressure 110 mm[Hg] Ron Alden DO Work Phone: [facility] 03-11-2023 09:53-0400 Body height 154.9 cm Farshad Vigil [employer]PER[employer] Work Phone: [facility] 12-10-2022 12:07-0400 Body height 155.2 cm Suman Baker MD, PhD Work Phone: [facility] Comment on above: without shoes 12-10-2022 12:07-0400 Body mass index (BMI) [Ratio] 30.64 kg/m2 Suman Baker MD, PhD Work Phone: [facility] 12-10-2022 12:07-0400 Body temperature 97.81 [degF] Suman Baker MD, PhD Work Phone: [facility] 12-10-2022 12:07-0400 Body weight 73.8 kg Suman Baker MD, PhD Work Phone: [facility] Comment on above: without shoes 12-10-2022 12:07-0400 Diastolic blood pressure 72 mm[Hg] Suman Baker MD, PhD Work Phone: [facility] 12-10-2022 12:07-0400 Heart rate 77 /min Suman Baker MD, PhD Work Phone: [phone] 12-10-2022 12:07-0400 Respiratory rate 14 /min Suman Baker MD, PhD Work Phone: [facility] 12-10-2022 12:07-0400 SaO2% (BldA) [Mass fraction] 99 % Suman Baker MD, PhD Work Phone: [facility] Comment on above: room air 12-10-2022 12:07-0400 Systolic blood pressure 118 mm[Hg] Suman Baker MD, PhD Work Phone: [facility] 10-22-2022 13:57-0400 Body height 154.9 cm Rebekah Suero MD Work Phone: [facility] 10-22-2022 13:57-0400 Body mass index (BMI) [Ratio] 30.33 kg/m2 Rebekah Suero MD Work Phone: [facility] 10-22-2022 13:57-0400 Body temperature 97.59 [degF] Rebekah Suero MD Work Phone: [facility] 10-22-2022 13:57-0400 Body weight 72.8 kg Rebekah Suero MD Work Phone: [facility] 10-22-2022 13:57-0400 Diastolic blood pressure 62 mm[Hg] Rebekah Suero MD Work Phone: [facility] 10-22-2022 13:57-0400 Heart rate 62 /min Rebekah Suero MD Work Phone: [facility] 10-22-2022 13:57-0400 Respiratory rate 20 /min Rebekah Suero MD Work Phone: [facility] 10-22-2022 13:57-0400 SaO2% (BldA) [Mass fraction] 99 % Rebekah Suero MD Work Phone: [facility] 10-22-2022 13:57-0400 Systolic blood pressure 119 mm[Hg] Rebekah Suero MD Work Phone: [facility] 10-22-2022 10:19-0400 Body height 157.5 cm Yudelka Moralez [employer]ED YE[employer] SUPER[employer]OR-[employer] MAN Work Phone: [facility] 10-22-2022 10:19-0400 Body mass index (BMI) [Ratio] 28.66 kg/m2 Yudelka Moralez [employer] YE[employer]PER[employer] Work Phone: [facility] 10-22-2022 10:19-0400 Body weight 71.1 kg Yudelka Moralez [employer]ED YE[employer] SUPER[employer] Work Phone: [facility] 10-22-2022 10:19-0400 Diastolic blood pressure 76 mm[Hg] Yudelka Moralez [employer]ED YE[employer] SUPER[employer] Work Phone: [facility] 10-22-2022 10:19-0400 Systolic blood pressure 126 mm[Hg] Yudelka Moralez [employer] Work Phone: [facility] 10-22-2022 07:38-0400 Body height 157.5 cm Yudelka Moralez [employer] Work Phone: [facility] 10-22-2022 07:38-0400 Diastolic blood pressure 76 mm[Hg] Yudelka Moralez [employer] Work Phone: [facility] 10-22-2022 07:38-0400 Heart rate 73 /min Yudelka Moralez [employer] Work Phone: [facility] 10-22-2022 07:38-0400 Systolic blood pressure 126 mm[Hg] Yudelka Moralez [employer] Work Phone: [facility] 10-07-2022 11:05-0400 Body height 157.5 cm Yudelka Moralez [employer] Work Phone: [facility] 10-07-2022 11:05-0400 Body mass index (BMI) [Ratio] 28.66 kg/m2 Yudelka Moralez [employer] Work Phone: [facility] 10-07-2022 11:05-0400 Body temperature 98.2 [degF] Yudelka Moralez [employer] Work Phone: [facility] 10-07-2022 11:05-0400 Body weight 71.08 kg Yudelka Moralez [employer] Work Phone: [facility] 10-07-2022 11:05-0400 Diastolic blood pressure 74 mm[Hg] Yudelka Moralez [employer] Work Phone: [facility] 10-07-2022 11:05-0400 Heart rate 81 /min Yudelka Moralez [employer] Work Phone: [facility] 10-07-2022 11:05-0400 Respiratory rate 16 /min Yudelka Moralez [employer] Work Phone: [facility] 10-07-2022 11:05-0400 SaO2% (BldA) [Mass fraction] 99 % Yudelka Moralez [employer] Work Phone: [facility] 10-07-2022 11:05-0400 Systolic blood pressure 120 mm[Hg] Yudelka Moralez [employer] Work Phone: [facility] 08-19-2022 15:43-0500 Diastolic blood pressure 88 mm[Hg] Andreas Ortega MD, MPH Work Phone: 8(509)[phone] [place] [address] 08-19-2022 15:43-0500 Systolic blood pressure 117 mm[Hg] Andreas Ortega MD, MPH Work Phone: 7(396)[phone] [place] [address] 07-08-2022 07:50-0500 Body height 157.5 cm Andreas Ortega MD, MPH Work Phone: 3(305)[phone] [place] [address] 07-08-2022 07:50-0500 Body mass index (BMI) [Ratio] 28.73 kg/m2 Andreas Ortega MD, MPH Work Phone: 5(995)[phone] [place] [address] 07-08-2022 07:50-0500 Body temperature 98.01 [degF] Andreas Ortega MD, MPH Work Phone: 1(706)[phone] [place] [address] 07-08-2022 07:50-0500 Body weight 71.26 kg Andreas Ortega MD, MPH Work Phone: 4(816)[phone] [place] [address] 07-08-2022 07:50-0500 Diastolic blood pressure 77 mm[Hg] Andreas Ortega MD, MPH Work Phone: 9(270)[phone] [place] [address] 07-08-2022 07:50-0500 Heart rate 73 /min Andreas Ortega MD, MPH Work Phone: [phone] [place] [address] 07-08-2022 07:50-0500 Respiratory rate 16 /min Andreas Ortega MD, MPH Work Phone: [phone] [place] [address] 07-08-2022 07:50-0500 SaO2% (BldA) [Mass fraction] 98 % Andreas Ortega MD, MPH Work Phone: [phone] [place] [address] 07-08-2022 07:50-0500 Systolic blood pressure 121 mm[Hg] Andreas Ortega MD, MPH Work Phone: [facility] 06-09-2022 13:10-0500 Body mass index (BMI) [Ratio] 29.3 kg/m2 [facility] Work Phone: [facility] 06-09-2022 13:10-0500 Body temperature 98.6 [degF] [facility] 06-09-2022 13:10-0500 Body weight 72.67 kg [facility] Work Phone: [facility] 06-09-2022 13:10-0500 Diastolic blood pressure 60 mm[Hg] [facility] Work Phone: [facility] 06-09-2022 13:10-0500 Heart rate 80 /min [facility] Work Phone: [facility] 06-09-2022 13:10-0500 Respiratory rate 16 /min [facility] Work Phone: [facility] 06-09-2022 13:10-0500 SaO2% (BldA) [Mass fraction] 98 % [facility] Work Phone: [facility] 06-09-2022 13:10-0500 Systolic blood pressure 110 mm[Hg] [facility] Work Phone: [facility] 05-29-2022 07:32-0500 Body temperature 98.01 [degF] Suman Baker MD, PhD Work Phone: [facility] 05-29-2022 07:32-0500 Diastolic blood pressure 64 mm[Hg] Suman Baker MD, PhD Work Phone: [facility] 05-29-2022 07:32-0500 Heart rate 77 /min Suman Baker MD, PhD Work Phone: [facility] 05-29-2022 07:32-0500 Respiratory rate 16 /min Suman Baker MD, PhD Work Phone: [facility] 05-29-2022 07:32-0500 SaO2% (BldA) [Mass fraction] 99 % Suman Baker MD, PhD Work Phone: [facility] 05-29-2022 07:32-0500 Systolic blood pressure 100 mm[Hg] Suman Baker MD, PhD Work Phone: [facility] 05-22-2022 15:50-0400 Body height 157.5 cm Suman Baker MD, PhD Work Phone: [facility] 05-22-2022 15:50-0400 Body mass index (BMI) [Ratio] 30.73 kg/m2 Suman Baker MD, PhD Work Phone: [facility] 05-22-2022 15:50-0400 Body weight 76.2 kg Suman Baker MD, PhD Work Phone: [facility] 03-31-2022 12:02-0400 Diastolic blood pressure 70 mm[Hg] [facility] [employer] Work Phone: [facility] 03-31-2022 12:02-0400 Systolic blood pressure 124 mm[Hg] Raina Chester [employer] Work Phone: [facility] 03-31-2022 11:53-0400 Body height 157.5 cm Raina Chester [employer]PER[employer] Work Phone: [facility] 03-19-2022 15:37-0400 Body height 158.3 cm Suman Baker MD, PhD Work Phone: [facility] 03-19-2022 15:37-0400 Body mass index (BMI) [Ratio] 30.63 kg/m2 Suman Baker MD, PhD Work Phone: [facility] 03-19-2022 15:37-0400 Body temperature 97.5 [degF] Suman Baker MD, PhD Work Phone: [facility] 03-19-2022 15:37-0400 Body weight 76.75 kg Suman Baker MD, PhD Work Phone: [facility] 03-19-2022 15:37-0400 Diastolic blood pressure 84 mm[Hg] Suman Baker MD, PhD Work Phone: [facility] 03-19-2022 15:37-0400 Heart rate 90 /min Suman Baker MD, PhD Work Phone: [facility] 03-19-2022 15:37-0400 Respiratory rate 16 /min Suman Baker MD, PhD Work Phone: [facility] 03-19-2022 15:37-0400 SaO2% (BldA) [Mass fraction] 98 % Suman Baker MD, PhD Work Phone: [facility] 03-19-2022 15:37-0400 Systolic blood pressure 128 mm[Hg] Suman Baker MD, PhD Work Phone: [facility] 12-22-2021 18:05-0400 Body height 152.4 cm Ava Tamika Other [facility] Other 12-22-2021 18:05-0400 Body mass index (BMI) [Ratio] 30.62 kg/m2 Ava Tamika Other [facility] Other 12-22-2021 18:05-0400 Body temperature 99 [degF] Ava Tamika Other [facility] Other 12-22-2021 18:05-0400 Body weight 71.12 kg Ava Lundberg Other [facility] Other 12-22-2021 18:05-0400 Diastolic blood pressure 89 mm[Hg] Ava Lundberg Other [facility] Other 12-22-2021 18:05-0400 Respiratory rate 16 /min Ava Lundberg Other [facility] Other 12-22-2021 18:05-0400 SaO2% (BldA) [Mass fraction] 99 % Ava Lundberg Other [facility] Other 12-22-2021 18:05-0400 Systolic blood pressure 129 mm[Hg] Ava Lundberg Other [facility] Other Encounters Encounter Date Encounter Type Care Provider Facility Start: 11-26-2023 ambulatory YUDELKA MORALEZ Facility:[facility] Start: 11-26-2023 ambulatory YUDELKA MORALEZ Facility:[facility] Start: 11-26-2023 End: 11-26-2023 Office outpatient new 45 minutes Dolores Johnson [employer] Work Phone: [facility] [place] Comment on above: Elevated liver enzym es (Primary Dx) Start: 11-11-2023 End: 11-11-2023 ambulatory LIZBET CAST Not Available Start: 11-08-2023 ambulatory SELF SELF Facility:[facility] Start: 11-06-2023 ambulatory ANDREAS ORTEGA Facility: [facility] Start: 11-06-2023 End: 11-06-2023 Subsequent hospital visit by physician Andreas Ortega MD, MPH Work Phone: Imaging [facility] Comment on above: Arrived Start: 10-04-2023 End: 10-04-2023 ambulatory LIZBET CAST Not Available Start: 09-25-2023 End: 09-25-2023 ambulatory Ron Alden Facility:[facility] Start: 09-20-2023 End: 09-20-2023 ambulatory RON ALDEN Not Available Start: 09-13-2023 End: 09-13-2023 ambulatory RON ALDEN Not Available Start: 09-06-2023 End: 09-06-2023 ambulatory RON ALDEN Not Available Start: 08-24-2023 End: 08-24-2023 ambulatory RON ALDEN Not Available Start: 08-24-2023 End: 08-24-2023 flow sheet Rno Alden DO Work Phone: [facility] Comment on above: Third trimester preg lavonne Start: 08-09-2023 End: 08-09-2023 ambulatory LIZBET CAST Not Available Start: 07-14-2023 End: 07-14-2023 ambulatory RON ALDEN Not Available Start: 06-01-2023 End: 06-01-2023 ambulatory RON ALDEN Not Available Start: 04-06-2023 ambulatory [facility] Facility: [facility] Start: 03-17-2023 [facility] Start: 03-11-2023 ambulatory SUMAN BAKER Facility:[facility] Start: 03-11-2023 End: 03-11-2023 Clinical Support Encounter Suman Baker MD, PhD Work Phone: Clinical Lab [facility] 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 Start: 03-11-2023 ambulatory FARSHAD VIGIL Fac ility:[facility] Start: 03-11-2023 End: 03-11-2023 Subsequent hospital visit by physician Farshad Vigil [employer] SUPER[employer]OR[employer] Work Phone: [facility] Comment on above: Arrived Start: 01-04-2023 ambulatory ERIN LATRELL Facility: [facility] Start: 12-16-2022 ambulatory ANDREAS JORDAN Facility: [facility] Start: 12-10-2022 End: 12-10-2022 Office outpatient visit 15 minutes Suman Baker MD, PhD Work Phone: Division of Surgical Oncology 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) Start: 11-30-2022 End: 11-30-2022 ambulatory ERIN SAMS Facility:[facility] Start: 10-22-2022 End: 10-22-2022 Office outpatient new 60 minutes Rebekah Suero MD Work Phone: [facility] Comment on above: Fibromyalgia muscle pain (Primary Dx) Start: 10-22-2022 End: 10-22-2022 Subsequent hospital visit by physician Yudelka Moralez [employer]ED YE[employer] SUPERVISOR[employer] MAN Work Phone: [facility] [place] Start: 10-22-2022 End: 10-22-2022 Subsequent hospital visit by physician Yudelka Moralez [employer] Work Phone: Imaging [facility] [place] Comment on above: Arrived Start: 10-07-2022 End: 10-07-2022 Office outpatient visit 25 minutes Yudelka Moralez [employer]ED YE[employer] SUPERVISOR[employer] Work Phone: Division of Medical Oncology Comment [...] medical examination without abnormal findings ERIN SAMS [facility] Start: 08-31-2022 End: 09-01-2022 ambulatory ERIN SAMS [...] Subsequent hospital visit by physician Yudelka Moralez [employer] SUPER[employer]OR[employer] Work Phone: [facility] Comment on above: Arrived Start: 08-12-2022 [...] follow up visit related to original px Raina Mendoza Eliseo [employer]ED YE[employer] SUPERVISOR-[employer] MAN Work Phone: Division of Surgical Oncology 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 Facility:[facility] Start: 04-06-2022 Encounter for preprocedural laboratory examination DR TIMMY HALL . [facility] Start: 04-04-2022 End: 04-05-2022 ambulatory ERIN SAMS Facility:[facility] Start: 04-04-2022 End: 04-05-2022 Encounter for preprocedural laboratory examination ERIN SAMS Facility:[facility] Start: 03-31-2022 End: 03-31-2022 Subsequent hospital visit by physician Raina Gomes [employer]ED [employer] SUPER[employer]OR[employer] Work Phone: [facility] [place] Comment on above: Arrived Start: 03-19-2022 End: [...] 12-22-2021 End: 12-22-2021 ambulatory Ava Lundberg Other [facility] Other Start: 12-22-2021 Office outpatient vi sit 15 minutes Ava Lundberg [facility] Procedures Date Procedure Procedure Detail Performing Clinician Start: 03-11-2023 Mri abdomen w/o cont rast material Yudelka Moralez [employer] Work Phone: Start: 10-22-2022 Echo tthrc r-t 2d w/wom-mode compl spec&colr d Yudelka Moralez [employer] SUPER[employer] Work Phone: Start: 10-22-2022 Ct soft tissue neck w/contrast material Yudelka Moralez [employer] SUPER[employer]OR[employer] Work Phone: Start: 10-22-2022 Ct thorax w/contrast material Yudelka Moralez [employer] SUPER[employer]OR[employer] Work Phone: Start: 10-07-2022 Natriuretic peptide Yudelka Moralez [employer]PER[employer] Work Phone: Start: 08-19-2022 Creatinine blood Marciano Ortega MD, MPH Work Phone: Start: 08-19-[address] atten uation skull base mid-thigh Yudelka Moralez [employer]PER[employer] Work Phone: Start: 05-29-2022 Assay of magnesium Dwaine Arnold MD Work Phone: Start: 05-28-2022 Assay of magnesium Tal[place]k vannessa Arnold MD Work Phone: Start: 05-27-2022 Assay of magnesium Dwaine Arnold MD Work Phone: Start: 05-26-2022 Assay of magnesium [place] vannessa Arnold MD Work Phone: Start: 05-25-2022 Assay of magnesium [place] vannessa Arnold MD Work Phone: Start: 05-24-2022 Assay of magnesium [place] vannessa Arnold MD Work Phone: Start: 05-23-2022 Assay [...] Phone: Start: 03-31-2022 Ct thorax w/contrast material Raina Gomes [employer] YE[employer] SUPER[employer]OR[employer] Work Phone: Start: 03-19-2022 CBC AND ELECTRONIC DIFF Raina Gomes [employer] SUPER[employer] Work Phone: Start: 03-19-2022 Complete blood count with white cell differential, automated Raina Gomes [employer] SUPERVISOR[employer] MAN Work Phone: Start: 03-19-2022 Comprehensive metabo lic panel Raina Gomes [employer] YE[employer] SUPER[employer] Work Phone: Plan of Treatment Date Care Activity Detail Author Start: 03-19-2024 Influenza vaccination INFLUENZA VACCINE (Season Ended) [facility] Start: 03-02-2024 End: 03-02-2024 Telemedicine consultation with patient 03/02/2024 9:00 AM EDT Telemedicine [facility] [place] [address] [place] [address] Dolores Johnson, [employer] [address] [place] [address] General and Gastro[facility] [place] Start: 02-10-2024 End: 02-10-2024 Patient encounter procedure 02/10/2024 11:00 AM EDT Office Visit Division of Medical Oncology [address] [place] [address] Andreas Ortega MD, MPH [address] [place] [address] Division of Medical Oncology Start: 01-28-2024 End: 01-28-2024 Patient encounter procedure 01/28/2024 11:30 AM EDT Appointment Imaging [facility] [address] [place] [phone] Yudelka Moralez, [employer] SUPER[employer]OR[employer] MAN [address] [place] [address] Imaging [facility] Start: 01-28-2024 End: 01-28-2024 Clinical Support Encounter 01/28/2024 10:15 AM EDT Clinical Support Encounter Clinical Lab [facility] [address] [place] [phone] Andreas Ortega MD, MPH [address] [place] [phone] Clinical [facility] Start: 01-06-2024 End: 01-06-2024 Patient encounter procedure 01/06/2024 3:00 PM EDT Office Visit Division of Medical Oncology [address] [place] [phone] Vinicius Gomes MD, PhD [address] [place] [phone] Division of Medical Oncology Start: 12-14-2023 End: 12-14-2023 Patient encounter procedure 12/14/2023 12:30 PM EDT Office Visit Cardiology Is[facility]rael [facility] [address] [place] [phone] Cheikh Coelho MD [address] [place] [address] Cardiology Isrrael [facility] 5 Start: 11-26-2023 End: 11-25-2024 [id number] PHENOTYPE [facility] Comment on above: Expected: 11/26/2023 (Approximate), Expi res: 11/25/2024 Start: 11-26-2023 End: 11-25-2024 HUNTER SCREEN IFA [facility] Comment on above: Expected: 11/26/2023 (Approximate), Expi res: 11/25/2024 Start: 11-26-2023 End: 11-25-2024 ANTI MITOCHONDRIAL ANTIBODY [facility] Comment on above: Expected: 11/26/2023 (Approximate), Expi res: 11/25/2024 Start: 11-26-2023 End: 11-25-2024 ANTI SMOOTH MUSCLE ANTIBODY [facility] Comment on above: Expected: 11/26/2023 (Approximate), Expi res: 11/25/2024 Start: 11-26-2023 End: 11-25-2024 MONOCLONAL PROT IMMUNO, SERUM [facility] Comment on above: Expected: 11/26/2023 (Approximate), Expi res: 11/25/2024 Start: 11-26-2023 End: 11-25-2024 T-TRANSGLUTAMINASE IGG/IGA, AB [facility] Comment on above: Expected: 11/26/2023, Expires: Start: 11-08-2023 End: 11-08-2023 Telemedicine consultation with patient 11/08/2023 11:00 AM EDT Telemedicine Division of Medical Oncology [address] [facility] [address] [place] [address] Yudelka Moralez, [employer] [address] [place] [address] Division of Medical Oncology Start: 10-28-2023 End: 10-28-2023 Patient encounter procedure 10/28/2023 1:00 PM EDT Office Visit [facility] [place] [address] [place] [address] Deborah Eli, Kelton Mari MD [address] [place] [address] General [facility] [place] Start: 09-08-2023 End: 09-08-2023 Patient encounter procedure 09/08/2023 10:40 AM EST Routine [facility] [address] [place] [phone] Ron Ruano, [address] [place] [address] [facility] Start: 06-17-2023 End: 06-17-2023 Patient encounter procedure 06/17/2023 1:30 PM EST Office Visit Division of Surgical Oncology [address] [place] [address] Suman Baker MD, PhD [address] [place] [phone] Division of Surgical Oncology Start: 06-17-2023 End: 06-17-2023 Patient encounter procedure 06/17/2023 12:20 PM EST Appointment Imaging [facility] [address] [place] [phone] Suman Baker MD, PhD [address] [place] [address] Imaging [facility] Start: 03-19-2023 Influenza vaccination [facility] Start: 03-17-2023 End: 03-17-2023 Patient encounter procedure Division of Medical Oncology Start: 03-11-2023 End: 03-11-2023 Patient encounter procedure 03/11/2023 Office Visit Surgical Oncology Suman Baker MD, PhD [address] [place] [address] Division of Surgical Oncology Start: 03-11-2023 End: 03-11-2023 Patient encounter procedure Imaging Outpatient Care [facility] Start: 12-22-2022 End: 12-22-2022 Patient encounter procedure 12/22/2022 Office Visit Cardiovascular Medicine Marisela Velásquez, [employer] SUPER[employer] [address] [place] [address] Cardiology [facility] 5 Start: 12-17-2022 End: 12-17-2022 Patient encounter procedure 12/17/2022 Office Visit Oncology Andreas Ortega MD, MPH [address] [address] Division of Medical Oncology Start: 12-10-2022 End: 12-11-2023 CT Abdomen and Pelvis W contrast IV CT ABDOMEN/PELVIS WITH CONTRAST Imaging Routine Primary malignant neuroendocrine tumor of appendix Expected: 12/10/2022, Expires: 12/11/2023 [facility] Comment on above: Expected: 12/10/2022, Expires: 4 Start: 12-10-2022 End: 12-11-2023 CT Chest W contrast IV CT CHEST WITH CONTRAST Imaging Routine Primary malignant neuroendocrine tumor of appendix Expected: 12/10/2022, Expires: 12/11/2023 [facility] Comment on above: Expected: 12/10/2022, Expires: 4 Start: 12-10-2022 End: 12-10-2022 Patient encounter procedure Imaging [facility] Start: 12-07-2022 End: 06-09-2023 CT Abdomen and Pelvis W contrast IV CT ABDOMEN/PELVIS WITH CONTRAST Imaging Routine Primary malignant neuroendocrine tumor of appendix Expected: 12/07/2022, Expires: 06/09/2023 [facility] Comment on above: Expected: 12/07/2022, Expires: 3 Start: 11-05-2022 End: 11-05-2022 Patient encounter procedure 11/05/2022 Office Visit Oncology Andreas Ortega MD, MPH [address] [address] Division of Medical Oncology Start: 10-27-2022 End: 10-27-2022 Patient encounter procedure 10/27/2022 Office Visit Cardiovascular Medicine Cheikh Coelho MD [address] [place] [address] Cardiology [facility] 5 Start: 10-27-2022 End: 10-27-2022 ambulatory 10/27/2022 Telemed Clin Support Genetics Erin Stoner, [facility] [address] [facility] [address] [place] [phone] Division of Human Genetics Start: 10-21-2022 Subsequent hospital visit by physician 10/21/2022 Hospital Encounter Computerized Tomography Scan Yudelka Moralez, [employer] [address] [place] [address] Imaging [facility] [place] Start: 10-21-2022 End: 10-21-2022 Patient encounter procedure 10/21/2022 Appointment Echocardiography Yudelka Moralez, [employer] [address] [place] [address] [facility] [place] Start: 10-07-2022 End: 10-08-2023 CT Chest W contrast IV CT CHEST WITH CONTRAST Imaging Routine Carcinoid syndrome SOB (shortness of breath) Tachycardia Primary malignant neuroendocrine tumor of appendix Expected: 10/07/2022, Expires: 10/08/2023 [facility] Comment on above: Expected: 10/07/2022, Expires: Start: 10-07-2022 End: 10-08-2023 CT Neck W contrast IV CT NECK WITH CONTRAST Imaging Routine Primary malignant neuroendocrine tumor of appendix Expected: 10/07/2022, Expires: 10/08/2023 [facility] Comment on above: Expected: 10/07/2022, Expires: 4 Start: 08-26-2022 End: 08-26-2022 Telemedicine consultation with patient 08/26/2022 Telemedicine Oncology Andreas Ortega MD, MPH [address] [place] [address] Division of Medical Oncology Start: 08-19-2022 End: 08-19-2022 Patient encounter procedure Imaging [facility] Start: 07-08-2022 End: 07-08-2023 Complete blood count with white cell differential, automated CBC, EDIF, PLATELET Lab Routine Primary malignant neuroendocrine tumor of appendix Expected: 07/08/2022, Expires: 07/08/2023 [facility] Comment on above: Expected: 07/08/2022, Expires: 3 Start: 07-08-2022 End: 07-08-2023 Comprehensive metabolic 2000 panel - Serum or Plasma COMPREHENSIVE METABOLIC PANEL Lab Routine Primary malignant neuroendocrine tumor of appendix Expected: 07/08/2022, Expires: 07/08/2023 [facility] Comment on above: Expected: 07/08/2022, Expires: 3 Start: 07-08-2022 End: 07-08-2023 CT Abdomen and Pelvis WO and W contrast IV CT ABDOMEN/PELVIS WITH AND WITHOUT CONTRAST Imaging Routine Primary malignant neuroendocrine tumor of appendix Expected: 07/08/2022, Expires: 07/08/2023 [facility] Comment on above: Expected: 07/08/2022, Expires: 3 Start: 07-08-2022 End: 07-08-2023 Lactate dehydrogenase [Enzymatic activity/volume] in Serum or Plasma LACTATE DEHYDROGENASE Lab Routine Primary malignant neuroendocrine tumor of appendix Expected: 07/08/2022, Expires: 07/08/2023 [facility] Comment on above: Expected: 07/08/2022, Expires: 3 Start: 07-08-2022 End: 07-08-2023 PT Skull base to mid-thigh NUC PET NEUROENDOCRINE Imaging Routine Primary malignant neuroendocrine tumor of appendix Expected: 07/08/2022, Expires: 07/08/2023 [facility] Comment on above: Expected: 07/08/2022, Expires: Start: 07-08-2022 End: 07-08-2022 Patient encounter procedure 07/08/2022 Office Visit Oncology Andreas Ortega MD, MPH [address] [place] [phone] Division of Medical Oncology Start: 07-06-2022 End: 07-06-2022 Telemedicine consultation with patient 07/06/2022 Telemedicine Surgical Oncology Raina Gomes, [employer] [address] [place], [place] [phone] [facility] Start: 06-09-2022 End: 06-09-2022 Patient encounter procedure 06/09/2022 Office Visit Surgical Oncology Raina Gomes, [employer] [address] [place], [place] [phone] Division of Surgical Oncology Start: 04-21-2022 End: 04-21-2022 Evaluation and management of inpatient 04/21/2022 Surgery Multispecialty Suman Baker MD, PhD [address] [place] [address] COLECTOMY PARTIAL LAPAROSCOPIC CCCT [facility]OP Comment on above: COLECTOMY PARTIAL LAPAROSCOPIC Start: 04-21-2022 End: 04-21-2022 Laparoscopy colectomy partial w/anastomosis COLECTOMY PARTIAL LAPAROSCOPIC Primary malignant neuroendocrine tumor of appendix 04/21/2022 7:15 AM EDT [facility] Start: 04-21-2022 Evaluation and management of inpatient 04/21/2022 Hospital Encounter Multispecialty Suman Baker MD, PhD [address] [place] [address] Primary malignant neuroendocrine tumor of appendix [facility] Comment on above: Primary malignant neuroendocrine tumor o f appendix Start: 03-19-2022 End: 03-19-2023 Colonoscopy flx dx w/collj spec when pfrmd DIAGNOSTIC COLONOSCOPY GI/Bronch STAT Primary malignant neuroendocrine tumor of appendix Expected: 03/19/2022, Expires: 03/19/2023 [facility] Comment on above: Expected: 03/19/2022, Expires: 3 Start: 03-19-2022 Influenza vaccination INFLUENZA VACCINE (#1) [facility] Start: 03-19-2022 End: 03-19-2023 TYPE AND SCREEN - PREADMISSION TYPE AND SCREEN - PREADMISSION Blood Bank Routine Primary malignant neuroendocrine tumor of appendix Expected: 03/19/2022, Expires: 03/19/2023 [facility] Work Phone: Comment on above: Expected: 03/19/2022, Expires: 3 Start: 07-10-2021 COVID-19 VACCINE (2 - Pfizer risk series) COVID-19 VACCINE (2 - Pfizer risk series) [facility] Start: 07-10-2021 COVID-19 VACCINE (2 - Pfizer series) COVID-19 VACCINE (2 - Pfizer series) [facility] Start: 08-14-2020 Tetanus vaccination TETANUS [facility] Start: 2018 Screening for malignant neoplasm of cervix CERVICAL CANCER SCREENING DISCUSSION [facility] Start: 2016 Third diphtheria, tetanus and acellular pertussis (DTaP) vaccination TDAP (ADULT) [facility] Start: 2016 Zoster vaccine hzv live for subcutaneous use ZOSTER (SHINGLES) VACCINE (1 of 2) [facility] Start: 2015 Tetanus vaccination TETANUS [facility] Start: 2013 Screening for Chlamydia trachomatis CHLAMYDIA SCREEN [facility] Start: 2012 HIV screening HIV SCREENING DISCUSSION [facility] Start: 02-11-2011 Vaccination for human papillomavirus HPV VACCINE ADOL (2 - 2-dose series) [facility] Start: 09-11-2010 Vaccination for human papillomavirus HPV VACCINE ADOL (2 - Risk 3-dose series) [facility] Start: 2008 Vaccination for human papillomavirus HPV VACCINE ADOL (1 - 2-dose series) [facility] Start: 2003 PNEUMOCOCCAL VACCINE SERIES (1 - PCV) PNEUMOCOCCAL VACCINE SERIES (1 - PCV) [facility] Start: 2003 PNEUMOCOCCAL VACCINE SERIES (1 of 2 - PCV) PNEUMOCOCCAL VACCINE SERIES (1 of 2 - PCV) [facility] Start: 1997 GONORRHEA SCREEN GONORRHEA SCREEN [facility] Start: 1997 Hepatitis C antibody, confirmatory test HEPATITIS C VIRUS SCREENING [facility] Start: 1997 Hepatitis C screening HEPATITIS C VIRUS SCREENING [facility] Start: 1997 Screening for Chlamydia trachomatis GONORRHEA SCREEN [facility] CHROMOGRANIN A CHROMOGRANIN A L ab Routine Primary malignant neuroendocrine tumor of appendix 03/11/2023 11:44 AM EDT [facility] Work Phone: End: 03-31-2022 CT Abdomen and Pelvis W contrast IV [facility] Work Phone: Comment on above: 1 Occurrences starting 03/31/2022 until 03/31/2022 End: 08-14-2022 CT Abdomen and Pelvis WO and W contrast IV [facility] Work Phone: Comment on above: 1 Occurrences starting 08/14/2022 until 08/14/2022 End: 11-06-2023 CT Abdomen and Pelvis WO and W contrast IV [facility] Comment on above: 1 Occurrences starting 11/06/2023 until 11/06/2023 Ecg routine ecg w/le ast 12 lds trcg only w/o i&r AZ ECG, TRACING ONLY [place] - OFFICE PERFORMED Routine Primary malignant neuroendocrine tumor of appendix Ordered: 03/19/2022 [facility] Comment on above: Ordered: 03/19/2022 Echocardiography ECHOCARDIOGRAM Echocardiography Routine Carcinoid syndrome SOB (shortness of breath) Tachycardia Ordered: 10/07/2022 [facility] Comment on above: Ordered: 10/07/2022 Laparoscopy colectom y partial w/anastomosis COLECTOMY PARTIAL LAPAROSCOPIC Primary malignant neuroendocrine tumor of appendix [facility] OR End: 03-09-2023 Magnetic resonance imaging of abdomen and pelvis with contrast MRI ABDOMEN/PELVIS WITHOUT AND WITH CONTRAST Imaging Routine Primary malignant neuroendocrine tumor of appendix 1 Occurrences starting 03/09/2023 until 03/09/2023 [facility] Comment on above: 1 Occurrences starting 03/09/2023 until 03/09/2023 Removal of kike AZ STAPLE REM OVAL AZ - OFFICE PERFORMED Routine Primary malignant neuroendocrine tumor of appendix Ordered: 06/09/2022 [facility] Comment on above: Ordered: 06/09/2022 SURG PATH REQUEST [facility] Comment on above: Release Upon Ordering for 1 Occurrences starting 05/22/2022, 1 completed TRANSIENT ELASTOGRAPHY TRANSIENT ELASTOGRAPHY GI/Bronch Routine Elevated liver enzymes Ordered: 11/26/2023 [facility] Comment on above: Ordered: 11/26/2023 Immunizations Immunization Date Immunization Notes Care Provider Chhaya dhillon 04-28-2021 influenza virus vaccine, unspecified formulation Raina Gomes COMPRESSED YEAST SUPERVISOR-BODY AND FRAME MAN Work Phone: [facility] Payers Date Payer Category Payer Self-pay 2022 Unknown [id number] 2021 Managed Care HMO (unspecified) PARAMOUNT HMO PARAMOUNT HMO [id number] 2021-Present [address] [place] [address] HMO [id number] 2021 Unknown PARAMOUNT NELIDA UNT PREFERRED PPO [id number] 2021-Present [phone] [address] [place] [address] PPO [id number] 1997 Unknown [id number] 2.16.840.1.006455.3.579.2 .593 1997 Unknown [id number] 2.16.840.1.855353.3.579.2 .593 1997 Unknown [id number] 2.16.840.1.608432.3.579.2 .593 1997 Unknown [id number] 2.16.840.1.290592.3.579.2 .593 1997 Unknown [id number] 2.16.840.1.621146.3.579.2 .593 1997 Unknown [id number] 2.16.840.1.349445.3.579.2 .593 1997 Unknown [id number] 2.16.840.1.367474.3.579.2 .593 1997 Unknown [id number] 2.16.840.1.895100.3.579.2 .593 1997 Unknown [id number] 2.16.840.1.620320.3.579.2 .593 1997 Unknown [id number] 2.16.840.1.859911.3.579.2 .593 1997 Unknown [id number] 2.16.840.1.511740.3.579.2 .593 1997 Unknown [id number] 2.16.840.1.864037.3.579.2 .593 1997 Unknown [id number] 2.16.840.1.037759.3.579.2 .593 1997 Unknown [id number] 2.16.840.1.407726.3.579.2 .593 1997 Unknown [id number] 2.16.840.1.061405.3.579.2 .593 1997 Unknown [id number] 2.16.840.1.472305.3.579.2 .593 1997 Unknown [id number] 2.16.840.1.932248.3.579.2 .593 1997 Unknown [id number] 2.16.840.1.574432.3.579.2 .1259 1997 Unknown [id number] 2.16.840.1.554180.3.579.2 .1259 1997 Unknown [id number] 2.16.840.1.899836.3.579.2 .1259 1997 Unknown [id number] 2.16.840.1.125734.3.579.2 .1259 1997 Unknown [id number] 2.16.840.1.583734.3.579.2 .1259 1997 Unknown [id number] 2.16.840.1.899094.3.579.2 .1259 1997 Unknown [id number] 2.16.840.1.941661.3.579.2 .1259 1997 Unknown [id number] 2.840.1.096524.3.579.2 .1259 1997 Unknown [id number] 2.16.840.1.598044.3.579.2 .1259 1997 Unknown [id number] 2..840.1.128302.3.579.2 .594 1997 Unknown [id number] 2.840.1.469893.3.579.2 .594 1997 Unknown [id number] 2.840.1.186517.3.579.2 .594 1997 Unknown [id number] 2.16.840.1.559665.3.579.2 .594 1997 Unknown [id number] 2.16.840.1.981973.3.579.2 .594 1997 Unknown [id number] 2.16.840.1.407437.3.579.2 .594 1997 Unknown [id number] 2.16.840.1.983461.3.579.2 .594 1997 Unknown [id number] 2.16.840.1.031639.3.579.2 .594 1997 Unknown [id number] 2.16.840.1.090206.3.579.2 .594 1997 Unknown [id number] 2.16.840.1.891119.3.579.2 .594 1997 Unknown [id number] 2.16.840.1.271130.3.579.2 .594 1997 Unknown [id number] 2.16.840.1.605914.3.579.2 .594 1959 Unknown [id number] Unknown [id number] 2..840.1.579436.19 Unknown [id number] 2.16.840.1.024649.3.579.2 .531 Social History Date Type Detail Facility Unknown if ever smoked [facility] Other Start: 03-11-2023 End: 11-08-2023 Sex Assigned At [facility] Tobacco smoking stat us [facility] Tobacco smoking consumption unknown [facility] Work Phone: Start: 1997 Sex Assigned At Not on file [facility] Start: 03-19-2022 End: 04-14-2022 Tobacco smoking status PRIS Never smoked tobacco [facility] Start: 03-31-2022 End: 11-26-2023 Alcohol intake Ex-drinker (finding) [facility] Start: 03-19-2022 History SDOH Alcohol Comment last alchohol 2019; mixed drink rarely [facility] Start: 04-14-2022 Tobacco use and exposure Smokeless tobacco non-user [facility] Start: 05-12-2022 End: 08-19-2022 Exposure to SARS-CoV-2 (event) Not sure [facility] Start: 06-28-2022 End: 07-08-2022 Exposure to SARS-CoV-2 (event) Unable to assess [facility] Start: 03-11-2023 End: 11-08-2023 History of Social function [facility] Adolescent depressio n screening assessment 1 [facility] Start: 01-12-2023 [facility] Start: 1995 Sex Assigned At Female [facility] Start: 01-25-2023 Gender identity Identifies as female gender (finding) [facility] Start: 01-25-2023 Sexual orientation Heterosexual (finding) [facility] Goals Date Patient Goal Desired Activity /State Personal health goal Clinical Notes 12-22-2021 to 11-26-2023 Kimberley Woodall LPN - 11/26/2023 9:30 AM EDTMAMTA Dee - 11/26/2023 9:30 AM EDTPatient InstructionsRon Ruano DO - 08/24/2023 10:10 AM ESTPatient InstructionsPatient Instructions Note Date & Type Note Facility 11-26-2023 History of Present illness Narrative This nurse verified pts name and . Subjective History of Present Illness: Chief Complaint Patient presents with New Patient Zainab Swift is a 28 y.o. female who presents to the [facility] Gastroenterology, Hepatology, and Nutrition Clinic today regarding [...] [facility] OR COLECTOMY PARTIAL LAPAROSCOPIC N/A 04/21/2022 Laterality: N/A; Surgeon: Suman Baker MD, PhD; Location[facility] OR COLONOSCOPY DIAGNOSTIC 04/08/2022 APPENDECTOMY LAPAROSCOPIC 02/03/2022 [place], [place] Current Outpatient Medications Medication Sig acetaminophen [...] as needed for Other (carcinoid syndrome). Pancrelipase, Tzc-Hqtg-Tznp, (Creon) [id number] units Cap DR Particles Please take one [...] enzymes - ALPHA 1 ANTITRYPSIN; Future - [id number] PHENOTYPE; Future - HUNTER SCREEN IFA; Future [...] - TRANSIENT ELASTOGRAPHY documented in this encounter [facility] 11-26-2023 Instructions MAMTA Dee - 11/26/2023 9:30 AM EDT Labs today to evaluate for causes of liver enzyme elevation Fibroscan ordered to evaluate your liver for fibrosis, steatosis Follow up in 3 months - video documented in this encounter [facility] 08-24-2023 History of Present illness Narrative Reason [...] nursing note reviewed. Exam conducted with a vp business development present. Vitals: Estimated body mass index is [...] Ron Ruano DO documented in this encounter [facility] 12-10-2022 History of Present illness Narrative Chief Complaint: Chief Complaint Patient presents with Follow-up HPI: Zainab Swift is a 27 y.o. female who presents to [facility] GI Surgical Oncology Clinic for [...] (Patient not taking: Reported on 07/06/2022) Pancrelipase, Dal-Rayc-Spnz, (Creon) [id number] units Cap DR Particles Take two caps [...] 27 y.o. female who presents to [facility] Surgical Oncology [facility] for [...] (Patient not taking: Reported on 07/06/2022) Pancrelipase, Ubc-Qrix-Turt, (Creon) [id number] units Cap DR Particles Take two caps [...] interviewed and examined this patient with the LEATHER CARVER/fellow/resident. I reviewed the history and exam detailed [...] months with repeat imaging. Suman Baker MD/PhD mortician helper Division of Surgical Oncology Department of Surgery documented in this encounter [facility] 12-10-2022 Instructions MAMTA Villagran - 12/10/2022 12:30 PM EDT documented in this encounter [facility] 10-22-2022 History of Present illness Narrative I [...] ulcers, vision changes. 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 [facility]. This handout is for informational purposes only. Talk with your doctor or healthcare team if you have any questions about your care. For more health information call the Library for Health Information at [phone] or email: [email or web address]. documented in this encounter [facility] 10-22-2022 History of Present illness Narrative Intravenous access obtained and remained for next appointment in cardioology at [facility]. 22 gauge IV in left ac. Dressing intact and/or coban used to secure access. Patient instructed to report directly to next appointment. documented in this encounter [facility] 10-07-2022 Note Acute Coronary Syndr ome (ACS): Initial Evaluation and Management: [email or web address] [facility] 10-07-2022 History of Present illness Narrative Images [...] able to do housework. 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 Eating ok. Weight [...] Reported on 07/06/2022) 30 tablet 0 Pancrelipase, Ljf-Jlnd-Eazr, (Creon) [id number] units Cap DR Particles Take two caps [...] OR COLONOSCOPY DIAGNOSTIC 04/08/2022 APPENDECTOMY LAPAROSCOPIC 02/03/2022 [place], [place] Past medical, surgical, family, and social [...] symptoms. MAMTA [facility] Ghulam Narinder [facility] and Mohamud Aguirre [facility] To discuss with Dr. Ortega documented in this encounter [facility] 10-07-2022 Instructions Johana Lutz RN - 10/07/2022 [...] script to Zainab Thank you for choosing [facility] for your cancer care. FMLA/Disability forms: Please allow up to 2 weeks for the forms to be returned to you +++ should you need any FMLA, Short term disability or employee benefits coordinator disability forms filled out please fax them to (f) [phone] ++++ Refill requests: Please allow 24-48 hours for a response My chart message response: PLEASE DO NOT SEND IN URGENT/EMERGENT MESSAGES VIA MY CHART. Please allow up to 24-48 hours for a response via my chart. Should you have questions or concerns, please call [phone] documented in this encounter [facility] 07-08-2022 History of Present illness Narrative Images [...] quickly and requires nap. 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 Better appetite with [...] OR COLONOSCOPY DIAGNOSTIC 04/08/2022 APPENDECTOMY LAPAROSCOPIC 02/03/2022 [place], [place] Social History Socioeconomic History Marital status: [...] recommendations. MAMTA [facility] Ghulam GYifan [facility] and Mohamud Aguirre [facility] Addendum by Dr. Ortega: IAttending [...] She was seen by Dr. Suman Baker ([facility] in [facility] chest [...] and fatigue. ECOG PS 1. 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 1. Metastatic, well differentiated, grade 1, appendicular [...] placebo groups was 14.3 and 6 months (p=[id number]), respectively. The CLARINET study, [which enrolled patients [...] 2. LAMN: Discussed with Dr. Vinicius Gomes/[facility] who recommended active surveillance. No role for adjuvant systemic therapy. Patient will continue to follow with Dr. Suman Baker. 3. Hx of NET in family: referral to genetics 4. Transaminitis: discontinue hepatotoxins/acetaminophen. Repeat LFTs at [facility]. documented in this encounter [facility] 07-08-2022 Instructions Yina Amaya RN - 07/08/2022 [...] Tylenol Cancel pathology-done documented in this encounter [facility] 06-09-2022 History of Present illness Narrative Chief Complaint: Chief Complaint Patient presents with Follow-up HPI: Zainab Swift is a 27 y.o. female who presents to [facility] GI Surgical Oncology Clinic for [...] status. MAMTA Carrion documented in this encounter [facility] 06-09-2022 Instructions Veronique Calvin RN - 06/09/2022 1:15 PM EST Tele health visit with Raina Gomes CNP in 4 weeks on a Wednesday. Referral placed to neuroendocrine oncology. Return in [address] Baker with scans same day. documented in this encounter [facility] 05-29-2022 Note Formatting of this n ote [...] via wheelchair with all belongings at 1147. [facility] 05-29-2022 Miscellaneous Notes Patient and spouse given [...] and assistance is needed, please page the air transport professionals [facility] at [phone]. Patient did well overnight. Patient pain mostly being controlled with epidural, but scheduled medications controlling her mild to moderate breakthrough pain. Patient with steady gait and only needig needing stand-by assistance. Patient now with bowel function and feeling hungry. Patient hopefully to have diet started today. Patient was able to be up in walking with stand-by assistance from multiple times yesterday. 2123: Moonlight paged: Rm 1203, Kryling: FYI pt states that she can't tolerate taking the olanzapine disintegrating tablet because of the NG. Thanks [id number] Q1 safety rounds completed. Patient pain controlled [...] Providers Updated In IHIS Yes Contact Information Test Architect/SW Added to Care Team Yes This Product Safety Compliance Leader is Primary Test Architect/SW Yes (Antonio Jiang RN [facility] [phone]) Test Architect Name Pinky Barcenas RN [facility] Test Architect's Social Work Contact Name Bailey WILLAMS, [facility] Candy Catcher's Living Environment Lives With spouse Living Arrangements [...] Education And Care For Discharge? Phill Swift [phone] Can Support Person Meet The Care Needs Of The Patient? 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 Employment/Financial Concerns no Source Of Income salary/wages Financial Concerns none Insurance Medical Insurance Verified Yes Prescription Coverage Yes Pharmacy updated in IHIS Yes Initial Discharge Planning Home Care Services (GRAVE CLEANER) No Home Therapies (GRAVE CLEANER) None DME (GRAVE CLEANER) None Medical Supplies (GRAVE CLEANER) None Patient Goal for Discharge Return home with assistance from family and friends Anticipated discharge disposition Home Anticipated Services at Discharge Outpatient follow up Anticipated Changes Related to Illness none Current Discharge Risk high risk diagnoses (i.e., CHF, Stroke, DM, chronic pain, abdominal pain, nausea and vomiting) Transportation Available car Home Care Services (GRAVE CLEANER) Additional Home Care Services (GRAVE CLEANER) no Assessment/Concerns to be Addressed Concerns To [...] Lines/Drains/Tubes Abdominal incision with dressing x 2 [place] drain x 1-under distal dressing NG-low wall [...] called to Jevon EMERY on 12 [facility] All questions answered. 1514: Patient discharged from [facility] PACU per protocol. Patient transported via gurney with side rails up x2 with HOB>30 degrees to room 1204 [facility] by Natalia EMERY and Dang LISA. Family called to patient's bedside. 1310: Patient arrives in [facility] PACU from OR via gurney with side rails up x2 with HOB >30 degrees, accompanied by Anesthesiologist: Viincius Gupta DO; Chayo Benson MD Claims Sorter: VIJAYA Gamboa; VIJAYA Lopez Police District Switchboard Operator Assisting: Richard Bradshaw MD Supervisor Operations: Wali Art. Patient placed on monitors, VSS. Report received from anesthesia. Patient assessed, see assessment. 1427: PACU labs and abdominal xray for NG placement cleared by Miguel Betancourt at this time. 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 JR drain placed in pelvis. SURGEON Surgeon(s) and Role: * Suman Baker MD, PhD - Primary ANESTHESIOLOGIST Anesthesiologist: Vinicius Gupta DO; Chayo Benson MD Claims Sorter: VIJAYA Gamboa; VIJAYA Lopez Police District Switchboard Operator Assisting: Richard Bradshaw MD Supervisor Operations: Wali Art SURGICAL STAFF Cloth Grader: Piedad Maki RN; Rima Medel RN Relief Cloth Grader: Suri Stockton RN Relief Scrub: Ghanshyam Townsend [...] May 22, 2022 1:06 PM Zainab Swift ([id number]) PRE OPERATIVE DIAGNOSIS Primary malignant neuroendocrine tumor [...] Anesthesiologist: Vinicius Gupta DO; Chayo Benson MD Claims Sorter: VIJAYA Gamboa; VIJAYA Lopez [employer] District Switchboard Operator Assisting: Richard Bradshaw MD Supervisor Operations: Wali Art SURGICAL STAFF Cloth Grader: Piedad Maki RN; Rima Medel RN Relief Cloth Grader: Suri Stockton RN Relief Scrub: Ghanshyam Townsend [...] 1:04 PM SURGEONS: Suman Baker MD, PhD ALCOHOL AND DRUG COUNSELOR SURGEON: Rodolfo Arnold MD PROCEDURE: - Exploratory [...] timeout per standard procedure at the [facility] We made a [...] sarmiento stapler device. Next, we began the xicwyc-lw-bzqhsfn dissection to mobilize the colonic mesentery. We [...] filed. We then proceeded with creating a abxo-fo-zlyi functional end-to-end anastomosis between the distal ileum [...] 04/21/22748 lower;medial abdomen laparoscopic puncture Placement Date/Time: 10/04/22 0749 Present On Admission : no Orientation: lower;medial Location: abdomen Incision Type: laparoscopic puncture Incision WDL WDL Plan WOCT Visit Frequency Sat Last Date Seen 05/22/22 documented in this encounter [facility] 05-29-2022 Hospital course Narrative Discharge [...] Provider Department Dept Phone 06/09/2022 1:15 PM Raina Gomes Division of Surgical Oncology Arrive at: Arrive to [facility] Registration [id number] documented in this encounter [facility] 05-28-2022 Note Formatting of this [...] and assistance is needed, please page the air transport professionals [facility] at [phone]. [facility] 05-28-2022 History of Present illness Narrative Epidural [...] the care of Zainab Swift. Please page [phone] or call [phone] with any questions or concerns. Elroy Powell MD Acute Pain Service Senior Resident @ [phone] Subjective: Passing gas and having regular BMs. [...] pain control. Plan was discussed with Dr. Samuel Betancourt APRN-TASH B surgery G3 service [id number] Anesthesia Acute Pain Progress Note Zainab Swift [...] acute pain service at [phone] or call [phone] with any questions or concerns. Yann Burr [...] medication regimen. Plan was discussed with Dr. Samuel Colón APRN-BODY AND FRAME MAN [facility] surgery G3 service [phone] Psychosocial Assessment Per chart review, patient is a is a 27 y.o. 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 PMH: anxiety, borderline personality disorder, depression, GERD SW met with patient to introduce self, explain social media analyst role during inpatient stay, and answer patient questions. Patient was alert and oriented x4 and agreeable to SW visit. Information Source Information Source: patient , review of medical record, spouse Information Source Name: Arlette Swift Information Source Number: see demographics Contact Information Test Architect Name: Pinky Smith RN PCRM Test Architect's Social Work Contact Name: Bailey Quarles GROVE WORKER HEAD CAGER Candy Catcher's Living Environment Lives With: spouse Living Arrangements: house (one story house wiith 3 Steps to enter) Provides Primary Care For: no one Primary Care Provided By: spouse/significant other, self Support System: Immediate family Able to Return to Prior Arrangements: yes Employment/Financial Employed?: Yes 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 Health Insurance / Rx: [id number] [place] [address] [address] [facility] Anticipated Discharge Plan: Pt report she plans to return home with care and transportation provided by her . Medical Team Considerations: None SW Interventions/Recommendations: Service SW name and contact information placed on white board in patient's room to contact as needed. SW will continue to remain available to provide assistance and support as needed during inpatient stay. IMER Christina, ABBIE SONC and HPB Candy Catcher Pager: [phone] For Evening (4:30pm-8am) and Weekend SW needs please call [phone] or page [phone] Anesthesia Acute Pain Progress Note Zainab Swift [...] acute pain service at [phone] or call [phone] with any questions or concerns. Yann Burr [...] I/O last 3 completed shifts: In: 2196.7 [I.V.:191; NG/GT:130; IV Piggyback:154.7] Out: 2265 [Urine:2000; Other:265] [...] with MAMTA Wisdom B surgery G3 service [id number] Anesthesia Acute Pain Progress Note Zainab Swift [...] regimen Please page acute pain service at [phone] or call [phone] with any questions or concerns. Yann Burr [...] interviewed and examined this patient with the LEATHER CARVER/fellow/resident. I reviewed the history and exam detailed in the note and have edited it as necessary. I agree with the medical decision making unless otherwise noted below. The patient is doing well. Her pain is well controlled. She is mildly distended on exam. We will continue NPO with NGT until return of bowel function. Suman Baker MD/PhD mortician helper Division of Surgical Oncology Department of Surgery [...] medication regimen. Plan was discussed with Dr. Samuel Colón, COMPRESSED YEAST SUPERVISOR-BODY AND FRAME MAN HPB surgery G3 service [id number] HPB Surgery Note Subjective: Patient doing well [...] acute pain service at [phone] or call [phone] with any questions or concerns. Yann Burr [...] acute pain service at [phone] or call [phone] with any questions or concerns. Yann Burr [...] acute pain service at [phone] or call [phone] with any questions or concerns. Richard Bradshaw MD residential coordinator [facility] documented in this encounter [facility] 05-27-2022 Note Formatting of this n ote [...] with stand-by assistance from multiple times yesterday. [facility] 05-26-2022 Consult note Formatting of th [...] 1: Location: forearm, anterior, right Device/Lot Number: [id number] catheter system Gauge/Length: 1 3/4 in length;20 gauge Unsuccessful Insertion Attempts: 1 Unsuccessful Attempt Location/Site: Pain Prevention/Patient Tolerance: distraction;tolerated well;appears comfortable Removal: Additional Comments: placed by Carla Mccurdy RN Lumen 2: Lumen 3: Peripheral IV Present on Admission: (Retired/Read Only) Location: (Retired/Read Only) Device: (Retired/Read Only) Gauge/Length: Avionic Technician/Lot Number: Unsuccessful Insertion Attempts: (Retired/Read Only) Unsuccessful [...] care of this patient. Vascular Access Team [id number] [facility] 05-26-2022 Consult note Formatting of th [...] 1: Location: forearm, anterior, right Device/Lot Number: [id number] catheter system Gauge/Length: 1 3/4 in length;20 gauge Unsuccessful Insertion Attempts: 1 Unsuccessful Attempt Location/Site: Pain Prevention/Patient Tolerance: distraction;tolerated well;appears comfortable Removal: Additional Comments: placed by Carla Mccurdy RN Lumen 2: Lumen 3: Peripheral IV Present on Admission: (Retired/Read Only) Location: (Retired/Read Only) Device: (Retired/Read Only) Gauge/Length: Avionic Technician/Lot Number: Unsuccessful Insertion Attempts: (Retired/Read Only) Unsuccessful [...] care of this patient. Vascular Access Team [id number] documented in this encounter [facility] 05-25-2022 Note Formatting of this n ote might be different from the original. 2124: Juanito paged: Rm [phone], Kryling: FYI pt states that she can't tolerate taking the olanzapine disintegrating tablet because of the NG. Thanks [id number] [facility] 05-22-2022 Note Formatting of this n ote [...] outcomes by discharge/transition of care. Outcome: Ongoing [facility] 05-22-2022 Note Formatting of this n ote might be different from the original. I certify that this patient requires inpatient services at this time. I anticipate the expected length of stay will include at least two midnights. Inpatient services are due to the following medical concerns appendiceal NET. Plans for post hospitalization care will be discharge to home. [facility] 05-22-2022 Note Formatting of this n ote is different from the original. 05/22/22 1608 Referral Information Arrived From home or self-care;operating room Readmission Information Was patient readmitted within 30 Days? No Information Source Information Source patient Information Source Name Zainab Swift-in person Information Source Number Demographics reviewed Outpatient Providers Outpatient Providers Updated In IS Yes Contact Information Test Architect/SW Added to Care Team Yes This Product Safety Compliance Leader is Primary Test Architect/SW Yes (Antonio Jiang RN [facility] [phone]) Test Architect Name Pinky Barcenas RN [facility] Test Architect's Social Work Contact Name Bailey Magallanes MSW, [facility] Candy Catcher's Living Environment Lives With spouse Living Arrangements [...] Education And Care For Discharge? Phill Swift [phone] Can Support Person Meet The Care Needs Of The Patient? 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 Employment/Financial Concerns no Source Of Income salary/wages Financial Concerns none Insurance Medical Insurance Verified Yes Prescription Coverage Yes Pharmacy updated in [facility] Yes Initial Discharge Planning Home Care Services (GRAVE CLEANER) No Home Therapies (GRAVE CLEANER) None DME (GRAVE CLEANER) None Medical Supplies (GRAVE CLEANER) None Patient Goal for Discharge Return home with assistance from family and friends Anticipated discharge disposition Home Anticipated Services at Discharge Outpatient follow up Anticipated Changes Related to Illness none Current Discharge Risk high risk diagnoses (i.e., CHF, Stroke, DM, chronic pain, abdominal pain, nausea and vomiting) Transportation Available car Home Care Services (GRAVE CLEANER) Additional Home Care Services (GRAVE CLEANER) no Assessment/Concerns to be Addressed Concerns To [...] and for discharge planning. Medical team updated. [facility] 05-22-2022 Note Formatting of this n ote might be different from the original. 1512: Report called to Jevon EMERY on Isrrael. All questions answered. 1514: Patient discharged from [facility] PACU per protocol. Patient transported via gurney with side rails up x2 with HOB>30 degrees to room 1204 [facility] by Natalia EMERY and Dang LISA. Family called to patient's bedside. [facility] 05-22-2022 Note Formatting of this n ote might be different from the original. 1310: Patient arrives in [facility] PACU from OR via gurney with side rails up x2 with HOB >30 degrees, accompanied by Anesthesiologist: Vinicius Gupta DO; Chayo Benson MD Claims Sorter: VIJAYA Gamboa; VIJAYA Lopez Police District Switchboard Operator Assisting: Richard Bradshaw MD Supervisor Operations: Wali Art. Patient placed on monitors, VSS. Report received from anesthesia. Patient assessed, see assessment. 1427: PACU labs and abdominal xray for NG placement cleared by Miguel Betancourt at this time. [facility] 05-22-2022 Note Formatting of this n ote is different from the original. 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 JR drain placed in pelvis. SURGEON Surgeon(s) and Role: * Suman Baker MD, PhD - Primary ANESTHESIOLOGIST Anesthesiologist: Vinicius Gupta DO; Chayo Benson MD Claims Sorter: VIJAYA Gamboa; VIJAYA Lopez Police District Switchboard Operator Assisting: Richard Bradshaw MD Supervisor Operations: Wali Art SURGICAL STAFF Cloth Grader: Piedda Maki RN; Rima Medel RN Relief Cloth Grader: Suri Stockton RN Relief Scrub: Ghanshyam Townsend [...] Arnold MD May 22, 2022 1:06 PM [facility] Work Phone: 05-22-2022 Note Formatting of this n ote is different from the original. Zainab Torreannekang ([id number]) PRE OPERATIVE DIAGNOSIS Primary malignant neuroendocrine tumor [...] Anesthesiologist: Vinicius Gupta DO; Chayo Benson MD Claims Sorter: VIJAYA Gamboa; VIJAYA Lopez Police District Switchboard Operator Assisting: Richard Bradshaw MD Supervisor Operations: Wali Art SURGICAL STAFF Cloth Grader: Piedad Maki RN; Rima Medel RN Relief Cloth Grader: Suri Stockton RN Relief Scrub: Ghanshyam Townsend Scrub Person: Hediy Skelton; Tammy Lopez Resident Assisting: Rodolfo Arnold [...] Hong MD May 22, 2022 1:04 PM [facility] Work Phone: 05-22-2022 Note Formatting of this n ote is different from the original. SURGEONS: Suman Baker MD, PhD ALCOHOL AND DRUG COUNSELOR SURGEON: Rodolfo Arnold MD PROCEDURE: - Exploratory [...] timeout per standard procedure at the [facility] We made a [...] sarmiento stapler device. Next, we began the jsxhxj-cm-tmfyvcr dissection to mobilize the colonic mesentery. We [...] filed. We then proceeded with creating a ltdu-ce-jyoa functional end-to-end anastomosis between the distal ileum [...] participated for the entirety of the case. [facility] Work Phone: 05-22-2022 Nurse Surgical operation note 0815 Family notified of surgery start 1022, 1211 Family updated 1228 Handoff report sent to PACU charge nurse 1255 PACU given notice of arrival 1309 Patient extubated and transported to PACU with anesthesia at bedside and on oxygen inhalation Rima Medel RN [facility] 05-22-2022 Nurse Note 0815 Family notified of surgery start 102, 1211 Family updated 1228 Handoff report sent to PACU charge nurse 1255 PACU given notice of arrival 1309 Patient extubated and transported to PACU with anesthesia at bedside and on oxygen inhalation Rima Medel RN documented in this encounter [facility] 05-22-2022 Note Formatting of this [...] General Pain Level/Goal 6 Incision (Adult, Pediatric) 04/21/22 0746 upper;medial abdomen laparoscopic puncture Placement Date/Time: 04/21/22745 [...] Visit Frequency Sat Last Date [facility] History and physical note Surgical [...] N/A; Surgeon: Suman Baker MD, PhD; [facility]NOSTIC 04/08/2022 APPENDECTOMY LAPAROSCOPIC 02/03/2022 [place], [place] Family History Family History Problem Relation [...] to the patient's satisfaction. Liza Cisneros PA-C [facility] 05-22-2022 History and physical note Surgical Oncology [...] N/A; Surgeon: Suman Baker MD, PhD; Location: [facility] MAIN OR COLONOSCOPY DIAGNOSTIC 04/08/2022 APPENDECTOMY LAPAROSCOPIC 02/03/2022 [place], [place] Family History Family History Problem Relation [...] over 2 hours as instructed. 05/21/2022 04/23/22 MAMTA Dickerson Review of Systems Denies the following: Arrhythmias, [...] Liza Cisneros PA-C documented in this encounter [facility] 05-21-2022 Hospital Discharge instructions Pinky Be RN - 05/21/2022 10:38 AM EDT Contacts: Suman Baker MD Office Number: [phone] Option 1 During office hours, Wednesday through Wednesday, 8:00 AM to 4:30 PM, call the office if you have any questions or concerns. After hours, weekends and holidays call the office number and you will be transferred to the After Hours Nurse Line. Call 911 for Emergencies. Your case filler (PCRM) has arranged your appointments for follow [...] pharmacist before using any other medicine, including fgce-plv-fknkpew medicines, vitamins, and herbal products. Avoid taking [...] and support, many resources are available. The [employer] Information Call to request information or check hours. The [facility] [employer] By [employer]: or , www.[employer] [facility] Care Classes: [facility] for [facility], Integrative Care Monthly Classes The [employer] for Life Program offers a series of [...] families and friends. For more information, contact [facility] [employer] [facility] at or visit our website at www.[employer] Resources in [facility] include the following: The [place] Cancer Society, [facility] Unit . The Wellness Community [facility] The Cancer Support [facility], [place]: http://cancersupportsouth [place].org/prog nmdh-ilf-ofivsvav/virtual-communi ty/ National Resources: [place] Cancer Society (ACS), www.cancer.org 6-022-FER-2345, [place]: 6-419-AIM-[place]. National Comprehensive Cancer [facility] (NCCN) 6-595-692-NCCN, www.nccn.org National Cancer [place] (NCI) 3-667-1-CANCER, www.nci.gov The following attachments cannot be sent through Care Everywhere.Lovenox or Heparin: Subcutaneous Injections ([facility]) (Yoruba)documented in this encounter [facility] 04-29-2022 Note PROCEDURE: XR [...] authenticated by: CAROLYN WALSH Date: 2022-04-29 16:59 [facility] 04-29-2022 Note PROCEDURE: XR HIP RT 2 3V WO PELVIS, XR TIB_FIB RT 2V, XR FEMUR RT HISTORY: Pain in right leg , chronic COMPARISON: None. FINDINGS: BONES:No fracture, acute abnormality, or significant arthropathy. SOFT TISSUES:No visible soft tissue swelling. EFFUSION:None visible. OTHER: Negative. IMPRESSION: 1. Normal appearance of the right hip, femur, and tibia-fibula. Electronically authenticated by: CAROLYN WALSH Date: 2022-04-29 16:59 [facility] 04-29-2022 Note PROCEDURE: XR HIP RT 2 [...] by: CAROLYN WALSH Date: 2022-04-29 16:59 [facility] 03-19-2022 History of Present illness Narrative [...] appendectomy on 02/03/22 for acute appendicitis at [facility]. 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 She presents to [facility] GI Surgical Oncology clinic for [...] History: Procedure Laterality Date APPENDECTOMY LAPAROSCOPIC 02/03/2022 [facility], [place], [place] No Known Allergies Current Outpatient Medications [...] in our surgical oncology clinic at [facility], [facility]. As you know, Ms. Swift [...] the future. Sincerely, Suman Baker MD, PhD mortician helper Department of Surgery Division of Surgical Oncology [address] [place] [address] Office [phone] Fax [email or web address] documented in this encounter [facility] 03-19-2022 Instructions Rhoda Lazo RN - 03/19/2022 3:00 PM EDT Pre-operative Information As a patient at the [facility], you may work with various departments and have help from many professionals. One of these is a surgical oncologist who works in the Division of Surgical Oncology. Surgical oncologists are surgeons who have completed advanced training to care for cancer patients. All of the surgical oncologists at the [facility] have completed specialized training and are board-certified. The surgeon who will be performing your surgery is Suman Baker M.D., mortician helper. [address], [address] [place] [address] Office phone: [phone] We are available to take calls Wednesday-Wednesday 8:00am-4:30pm. During non-business hours and holidays phone calls will be forwarded to a service covering our patients. Please communicate with our team through [facility] [employer] for non-urgent issues only. Office fax: [phone] Clinic Nurse Practitioner Raina Gomes Gun Perforator Sandra Kennedy Cotton Candy Maker Iris Giraldo OUR TEAM OF EXPERTS The [facility] is associated with The [facility] and is an academic medical center. Dr. Skip Le is an attending physician, the garbage collector supervisor of your care. Listed below are the members of his team: Surgical Oncology Fellow: a physician who completed residency and is obtaining further education. Resident(s): a physician who has finished regulatory affairs internship and is receiving training in a specialized area (i.e. surgery) Inspector Bicycle(s): a physician who has completed medical school and is in the 1st year of training Nurse Practitioner (LEATHER CARVER): A registered nurse with a master's or doctoral degree who is licensed to practice; [facility]: [facility], [facility], Suman Jeffries, [facility], Kika Colón, [facility], Monica Jackson, [facility] Patient Care Rug Dyer Helper (PCRM): A registered nurse who coordinates care [...] to 2 weeks to complete your request. [phone] DISABILITY FORMS This category includes any form [...] a private room? All rooms at the [facility] are private. Do you have a social media analyst available? A social media analyst is assigned to our team. How can I help my family plan for my discharge? From the moment a patient is admitted, the [facility] begin to plan for the patient s [...] access to the quality healthcare services of [facility], and we are committed to working with you and your family to obtain appropriate financial assistance. You may contact the Office of Financial Counseling [phone] weekdays between 8am and 5pm to help [...] to quit, you can contact a tobacco residential treatment staff at [phone] or the [place] Tobacco QUIT LINE at [phone]. Where can I find information about visitation, [...] someone after business hours? The office number, [phone] or [phone], is connected to an answering service after 4:30pm each weekday and on weekends, available 08/02. What number should I call if I have billing questions? Please call [facility] s Central Business Office at [phone]. Please Note: In regards to automatic data processing planner pain control. You may need narcotic pain [...] by 4 p.m., please call the [facility] Ambulatory Surgery Unit [...] the hospital. Do not wear makeup, nail ghanaian or hair pins to the hospital. Please [...] a living will or durable power of ladies' locker room attendant, please bring a copy of the documents with you. IF YOU USE CPAP BRING YOUR MACHINE WITH YOU TO THE HOSPITAL ALONG WITH THE PRESCRIPTION FOR CPAP PRESSURE LEVELS If you develop any illness, such as a cold, sore throat, cough, or fever, before your surgery, call the [facility] Ambulatory Surgery Unit [...] pulp Popsicles Ice Soft drinks Gatorade (Lemon Douglas preferred) Clear broth or bouillon Jello Coffee [...] not red, orange, or purple in color. Lemon-ottawa is preferred. You may need to pour [...] program. You can also get help through: [facility] Tobacco Dependency Clinic, National Quit Line, [place] Lung Association, [place] Cancer Society, Smokefree.gov website Stop Alcohol Use [...] helpful:Alcoholics Anonymous (AA) http://www.aa.org/ Rethinking Drinking https://www.rethinkingdrinking.ni [facility].nih.gov/ National [place] of Alcohol Abuse and Alcoholism https://niaaa.nih.gov/ Sasha Head 764-597-7158 -Inpatient, partial hospitalization and outpatient services for [...] Patient Controlled Analgesia (also known as a PEOPLESOFT CRM DEVELOPER) A PEOPLESOFT CRM DEVELOPER is a pain pump that could be [...] before surgery omeprazole [address] elgin Safe to take AM of surgery documented in this encounter [facility] 02-19-2022 Miscellaneous Notes Addended by: KARINE GALVAN on: 02/19/2022 04:15 PM Modules accepted: Orders INTESTINAL REFERRAL Let the person providing referral info know that you must speak directly to the patient. Our team cannot proceed with intake without communicating directly with the patient. 1) What is your (the patient's) direct phone contact number?- [phone] 2) What is your referring diagnosis? Appendix [...] resources available to cover travel expenses to [facility]? Yes We are currently flexible in offering initial virtual consultations for both surgery and transplant ONLY to patients living in [place], [place], and [place] through May 18, 2022. This may expand to other states depending on where the surgeon who conducts your initial visit is licensed (Dr. Wyatt is licensed in [place], [place], and [place]). If you are living in another state and desire an initial virtual consultation, you may choose to purchase a [employer]. (Surgical or transplant evaluations are highly individualized and may be conducted either through your local providers or at the [facility]. The plan for your evaluation will be [...] for any pre-surgical testing done at the [facility], and for any post-surgical stay in [place] depending on your post-surgical course. 8) Would you be interested in participating in [facility] Virtual Visits for the psychosocial screening? - Yes If the patient says no, proceed as normal. If yes, please e-mail the patient and copy the social media analyst on it. She will need them [...] have been over the past 1 year? [facility] (Submit ALL template in ESAVORTEX, AND for transplant patients submit MOST RECENT [...] On medication - Psychiatrist (Submit request in ESAVORTEX) 15) Do you have a Power of Director Digital Analytics (POA)? Do you have a Living Will?- No If so, please bring a copy of this to your appointment. 16) For females: When and where was your last mammogram (40 and up) and pap smear (16 and up)? - Needs to be within last year.- PAP- Never had & Mammo- No (Submit request in ESAVORTEX) 17) For all patients: When and where was your last dental visit? - Needs to be within last 6 months.- about 6 months ago (Submit request in ESAVORTEX) 18) If transplant- Ask patient to obtain their immunization records and have them sent to us via mail/fax.- COVID- Yes The patient has been entered into Edit, chart is created, and request to [facility] for medical records has been generated. Financial clearance has been submitted for rehab/transplant (if on TPN or has dysmotility, submit for both rehab & transplant). Chart will be given to display coordinator. Referral received from Dr. Rodney Olivas from [facility] ([phone]) to Dr. Davies. 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 Will call patient to start intake. documented in this encounter [facility] 12-22-2021 Evaluation note Encounter Date Diagnosis Assessment [...] Follow up with primary care provider or assistant superintendent if no improvement of symptoms. 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 [facility] Primary malignant neuroendocrine tumor of appendix Post-operative pain Other acute postoperative pain Primary malignant neuroendocrine tumor of appendix [facility] Primary malignant neuroendocrine tumor of appendix- Primary [facility] Primary malignant neuroendocrine tumor of appendix- Primary [facility] Primary malignant neuroendocrine tumor of appendix [facility] Primary malignant neuroendocrine tumor of appendix [facility] Diagnosis Carcinoid syndrome- Primary SOB (shortness of breath) Shortness of breath Tachycardia Tachycardia, unspecified Antinuclear antibody (HUNTER) titer greater than 1:80 Primary malignant neuroendocrine tumor of appendix [facility] Primary malignant neuroendocrine tumor of appendix [facility] Diagnosis Carcinoid syndrome SOB (shortness of breath) Shortness of breath Tachycardia Tachycardia, unspecified Primary malignant neuroendocrine tumor of appendix [facility] Diagnosis Fibromyalgia muscle pain- Primary Mylagia and myositis, unspecified [facility] Primary malignant neuroendocrine tumor of appendix- Primary [facility] Diagnosis Primary malignant neuroendocrine tumor of appendix [facility] Diagnosis 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 Neoplasm of unspecified nature of digestive system [facility] Diagnosis Third trimester state, incidental [facility] Elevated liver enzymes- Primary Nonspecific elevation of levels of transaminase or lactic acid dehydrogenase (LDH) [facility] Narrative - Reported* Type Description Date Medical History chronic depression [employer] Other Reason for referral (narrative)* (Routine) Specialty Diagnoses / Procedures Referred By Katharine morales Referred To Contact ISRRAEL Crow [address] [place] [phone] Referral ID Status Reason Start Date Expiration Date Visits Re quested Visits Authorized * (Routine) - New Request Specialty Diagnoses / Procedures Referred By Contac t Referred To Contact Procedures PLATELET MONITORING PER PROTOCOL Suman Baker MD, PhD [address] [place] [address] Referral ID Status Reason Start Date Expiration Date V isits Requested Visits Authorized [id number] New Request 05/22/2022 06/16/2023 1 1 * (Routine) - New Request Specialty Diagnoses / Procedures Referred By Contac t Referred To Contact Procedures DVT/VTE RISK ASSESSMENT Suman Baker MD, PhD [address] [place] [address] Referral ID Status Reason Start Date Expiration Date V isits Requested Visits Authorized [id number] New Request 05/22/2022 06/16/2023 1 1 * (Routine) - New Request Specialty Diagnoses / Procedures Referred By Contac t Referred To Contact Procedures NO MECHANICAL DVT PROPHYLAXIS Liza Cisneros PA-C [address] [place] [address] Referral ID Status Reason Start Date Expiration Date V isits Requested Visits Authorized [id number] New Request 05/22/2022 06/16/2023 1 1 [facility] for referral (narrative)* Consultation (Routine) - New Request Specialty Diagnoses / Procedures Referred By Contac t Referred To Contact Oncology Diagnoses Primary malignant neuroendocrine tumor of appendix Raina Gomes, COMPRESSED YEAST SUPERVISOR-BODY AND FRAME MAN [address] [place] [address] Andreas Ortega MD, MPH [address] [address] Referral ID Status Reason Start Date Expiration Date V isits Requested Visits Authorized [id number] New Request 06/09/2022 07/04/2023 1 1 * MRI/CAT Scan (Routine) - New Request Specialty Diagnoses / Procedures Referred By Contac t Referred To Contact Diagnoses Primary malignant neuroendocrine tumor of appendix Procedures CT ABDOMEN/PELVIS WITH CONTRAST CHG CT SCAN,ABDOMENT AND PELVIS,W CONTRAST Raina Gomes APRN-BODY AND FRAME MAN [address] [place] [address] Referral ID Status Reason Start Date Expiration Date V isits Requested Visits Authorized [id number] New Request 06/09/2022 07/04/2023 1 1 [facility] for referral (narrative)* Consultation (Routine) - New Request Specialty Diagnoses / Procedures Referred By Katharine t Referred To Contact Genetics Diagnoses Primary malignant neuroendocrine tumor of appendix Yudelka Moralez APRN-BODY AND FRAME MAN [address] [place] [address] Erin Stoner, [facility] [address] [place] [phone] Referral ID Status Reason Start Date Expiration Date V isits Requested Visits Authorized [id number] New Request 07/08/2022 08/02/2023 1 1 * MRI/CAT Scan (Routine) - New Request Specialty Diagnoses / Procedures Referred By Contac t Referred To Contact Diagnoses Primary malignant neuroendocrine tumor of appendix Procedures CT ABDOMEN/PELVIS WITH AND WITHOUT CONTRAST CHG CT SCAN,ABDOMENT AND PELVIS,Andreas Ellis MD, MPH [address] [address] Referral ID Status Reason Start Date Expiration Date V isits Requested Visits Authorized [id number] New Request 07/08/2022 08/02/2023 1 1 * Radiology (Routine) - New Request Specialty Diagnoses / Procedures [facility] Referred To Contact Diagnoses Primary malignant neuroendocrine tumor of appendix Procedures NUC PET NEUROENDOCRINE CHG NUC THERAPY HYPERTHYROID SUBSEQUENT Yudelka Moralez APRN-BODY AND FRAME MAN [address] [place] [address] Referral ID Status Reason Start Date Expiration Date V isits Requested Visits Authorized [id number] New Request 07/08/2022 08/02/2023 1 1 [facility] Auth/Cert Specialty Diagnoses / Procedures Referred By [facility] Referred To Contact Diagnoses 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] Procedures AZ CHG HYPERTHERMIA RX INTRACAV PROBE [place] PART REMOVAL COLON W ANASTOMOSIS [place] RESECT RECURRENT ADVANCED DEVELOPER MALIG 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) COLECTOMY PARTIAL OPEN DEBULKING INTRA-ABDOMINAL/PELVIC/RETROPE RITONEAL W/ OMENECTOMY & PELVIC PARA-AORTIC LYMPHADENECTOMY Suman Baker MD, PhD [address] [place] [address] [facility] [address] [place] [address] Referral ID Status Reason Start Date Expiration Date Visits Re quested Visits Authorized [id number] 1 1 [facility] Summary Purpose Family History No Family History Records FoundNo Family History Records FoundNo Family History Records FoundNo Family History Records FoundNo Family History Records Found Advance Directives No Advanced Directives Records FoundNo Advanced Directives Records FoundNo Advanced Directives Records FoundNo Advanced Directives Records FoundNo Advanced Directives Records Found Reason for Referral Specialty Diagnoses / Procedures Referred By [facility] t Referred To Contact Diagnoses Elevated liver enzymes Procedures TRANSIENT ELASTOGRAPHY Dolores Johnson, COMPRESSED YEAST SUPERVISOR-BODY AND FRAME MAN [address] [place] [address] Referral ID Status Reason Start Date Expiration Date V isits Requested Visits Authorized [id number] New Request 11/26/2023 12/20/2024 1 1 Specialty Diagnoses / Procedures Referred By Contac t Referred To Contact Echocardiography Diagnoses Carcinoid syndrome SOB (shortness of breath) Tachycardia Procedures ECHOCARDIOGRAM [place] ECHO HEART XTHORACIC,COMPLETE W DOPPLER Yudelka Moralez APRN-BODY AND FRAME MAN [address] [place] [phone] Echocardiography [place] [address] [place] [address] Referral ID Status Reason Start Date Expiration Date V isits Requested Visits Authorized [id number] Auth Not Needed 10/07/2022 11/01/2023 1 1 Specialty Diagnoses / Procedures Referred By Contac t Referred To Contact Diagnoses Primary malignant neuroendocrine tumor of appendix Procedures CT NECK WITH CONTRAST [place] CT NECK TISSUE CONTRAST Yudelka Moralez APRN-BODY AND FRAME MAN [address] [place] [phone] Referral ID Status Reason Start Date Expiration Date V isits Requested Visits Authorized [id number] New Request 10/07/2022 11/01/2023 1 1 Specialty Diagnoses / Procedures Referred By Contac t Referred To Contact Diagnoses Carcinoid syndrome SOB (shortness of breath) Tachycardia Primary malignant neuroendocrine tumor of appendix Procedures CT CHEST WITH CONTRAST CHG DIAGNOSTIC COMPUTED TOMOGRAPHY THORAX W/CONTRAST Yudelka Moralez APRN-BODY AND FRAME MAN [address] [place], [place] Referral ID Status Reason Start Date Expiration Date V isits Requested Visits Authorized [id number] New Request 10/07/2022 11/01/2023 1 1 Specialty Diagnoses / Procedures Referred By Contac t Referred To Contact Oncology Diagnoses Carcinoid syndrome SOB (shortness of breath) Tachycardia Yudelka Moralez APRN-BODY AND FRAME MAN [address] [place], [place] Referral ID Status Reason Start Date Expiration Date V isits Requested Visits Authorized [id number] New Request 10/07/2022 11/01/2023 1 1 Specialty Diagnoses / Procedures Referred By Contac t Referred To Contact Rheumatology Diagnoses Antinuclear antibody (HUNTER) titer greater than 1:80 Yudelka Moralez APRN-BODY AND FRAME MAN [address] [place] [address] Referral ID Status Reason Start Date Expiration Date V isits Requested Visits Authorized [id number] New Request 10/07/2022 11/01/2023 1 1 Specialty Diagnoses / Procedures Referred By Contac t Referred To Contact Diagnoses Primary malignant neuroendocrine tumor of appendix Procedures CT ABDOMEN/PELVIS WITH CONTRAST CHG CT SCAN,ABDOMENT AND PELVIS,W CONTRAST Raina Gomes, COMPRESSED YEAST SUPERVISOR-BODY AND FRAME MAN [address] [facility] 8th [place] [address] Referral ID Status Reason Start Date Expiration Date Visits Re quested Visits Authorized [id number] Closed 03/19/2022 04/13/2023 1 1 Specialty Diagnoses / Procedures Referred By Contac t Referred To Contact TRANSPLANT Diagnoses Cancer of appendix (HCC) Procedures CONSULT TO TRANSPLANT CENTER EXPLORATORY LAPAROTOMY CELIOTOMY W/WO BIOPSY SPX Vernon Davies MD [address] [place] [address] [facility]3] Main [address] [place] [address] Referral ID Status Reason Start Date Expiration Date Visits Requested Visits Authorized [id number] Pending Review Financial Clearance Required - [facility]ON Payor 02/19/2022 02/19/[phone] Additional Source Comments INFORMATION SOURCE (unrecogn ized section and content) DATE CREATED AUTHOR 02/19/2021 [facility] DATE CREATED AUTHOR AUTHOR'S ORGANIZ ATION 12/25/2022 [facility] DATE CREATED AUTHOR AUTHOR'S ORGANIZ ATION 09/30/2023 [facility] DATE CREATED AUTHOR AUTHOR'S ORGANIZ ATION 11/13/2023 [facility] EP[facility] DATE CREATED AUTHOR AUTHOR'S ORGANIZ ATION 12/12/2023 [facility] REASON FOR VISIT (unrecogniz ed section and content) Reason Comments Referral Request Specialty Diagnoses / Procedures Referred By Contac t Referred To Contact Diagnoses Primary malignant neuroendocrine tumor of appendix Procedures CT ABDOMEN/PELVIS WITH CONTRAST CHG CT SCAN,ABDOMENT AND PELVIS,W CONTRAST Raina Gomes, COMPRESSED YEAST SUPERVISOR-BODY AND FRAME MAN [address] [facility] [address] [place] [address] Referral ID Status Reason Start Date Expiration Date Visits Re quested Visits Authorized [id number] Closed 03/19/2022 04/13/2023 1 1 Reason Comments New Patient Specialty Diagnoses / Procedures Referred By Contac t Referred To Contact Surgical Oncology Diagnoses New patient - Appendix NET - External: Dr. Timmy Hall - Preferred: Samuel Procedures NEW ISRRAEL SURGERY Self, Self Suman Baker MD, PhD [address] [place] [address] Referral ID Status Reason Start Date Expiration Date Visits Re quested Visits Authorized [id number] Closed 03/19/2022 04/13/2023 1 1 Reason Comments [...] Diagnoses Primary malignant neuroendocrine tumor of appendix Raina Gomes, COMPRESSED YEAST SUPERVISOR-BODY AND FRAME MAN [address] [place] [address] Andreas Ortega MD, MPH [address] [facility] [address] [place] [address] Referral ID Status Reason Start Date Expiration Date V isits Requested Visits Authorized [id number] New Request 06/09/2022 07/04/2023 1 1 Specialty Diagnoses / Procedures Referred By Contac t Referred To Contact Diagnoses Primary malignant neuroendocrine tumor of appendix Procedures NUC PET NEUROENDOCRINE CHG NUC THERAPY HYPERTHYROID SUBSEQUENT Yudelka Moralez, COMPRESSED YEAST SUPERVISOR-BODY AND FRAME MAN [address] [place] [phone] Referral ID Status Reason Start Date Expiration Date Visits Re quested Visits Authorized [id number] Closed 07/08/2022 08/02/2023 1 1 Specialty Diagnoses / Procedures Referred By Katharnie t Referred To Contact Diagnoses Primary malignant neuroendocrine tumor of appendix Procedures CT ABDOMEN/PELVIS WITH AND WITHOUT CONTRAST CHG CT SCAN,ABDOMENT AND PELVIS,Andreas Ellis MD, MPH [address] [facility] [address] [place] [address] Referral ID Status Reason Start Date Expiration Date Visits Re quested Visits Authorized [id number] Closed 07/08/2022 08/02/2023 1 1 Reason Comments Follow-up Primary malignant ne uroendocrine tumor of appendix Other 09/09 first Aprreotid e injection, since has flu like symptoms. [...] of appendix Procedures CT NECK WITH CONTRAST AZ CT NECK TISSUE CONTRAST Yudelka Moralez APRN-CNP [address] [place] [address] Referral ID Status Reason Start Date Expiration Date Visits Re quested Visits Authorized [id number] Closed 10/07/2022 11/01/2023 1 1 Specialty Diagnoses / Procedures Referred By Katharine t Referred To Contact Echocardiography Diagnoses Carcinoid syndrome SOB (shortness of breath) Tachycardia Procedures ECHOCARDIOGRAM [place] ECHO HEART XTHORACIC,COMPLETE W DOPPLER Yudelka Moralez APRN-TASH [address] [place] [phone] Echocardiography [place] [address] [place] [address] Referral ID Status Reason Start Date Expiration Date Visits Re quested Visits Authorized [id number] Closed 10/07/2022 11/01/2023 1 1 Specialty Diagnoses / Procedures Referred By Katharine t Referred To Contact Diagnoses Carcinoid syndrome SOB (shortness of breath) Tachycardia Primary malignant neuroendocrine tumor of appendix Procedures CT CHEST WITH CONTRAST CHG DIAGNOSTIC COMPUTED TOMOGRAPHY THORAX W/CONTRAST Yudelka Moralez, COMPRESSED YEAST SUPERVISOR-BODY AND FRAME MAN [address] [place] [address] Referral ID Status Reason Start Date Expiration Date Visits Re quested Visits Authorized [id number] Closed 10/07/2022 11/01/2023 1 1 Reason Comments New Patient Referred by Dorothy Moralez NP for JR. 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 Joint achy/flu symptoms, tachcardia, + HUNTER. 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 Procedures MRI ABDOMEN/PELVIS WITHOUT CONTRAST AZ MRI, ABDOMEN (MRI) [place] MRI, PELVIS, W/O CONTRAST Yudelka Moralez, COMPRESSED YEAST SUPERVISOR-BODY AND FRAME MAN [address] [place] [address] Referral ID Status Reason Start Date Expiration Date Visits Re quested Visits Authorized [id number] Closed 03/09/2023 04/02/2024 1 1 Reason Comments Routine Visit Referral ID Status Reason Start Date Expiration Date Visits Re quested Visits Authorized [id number] Closed 04/06/2023 04/30/2024 1 1 Reason Comments New Patient Specialty Diagnoses / Procedures Referred By Katharine morales Referred To Contact Gastroenterology Diagnoses Hepatomegaly Transaminitis Yudelka Moralez, COMPRESSED YEAST SUPERVISOR-BODY AND FRAME MAN [address] [place] [phone] Referral ID Status Reason Start Date Expiration Date V isits Requested Visits Authorized [id number] Pending Review 11/10/2023 12/04/2024 1 1 Source Comments (unrecognize d section and content) In the event this informatio n is protected by the Federal Confidentiality of Alcohol and Drug Abuse Patient Records regulations: The Federal rules restrict any use of the information to criminally investigate or prosecute any alcohol or drug abuse patient.[facility] Care Teams (unrecognized sec tion and content) Obstetrician And Gynaecologist Relationship Specialty Start Date End Date Erin Sams RN PCP - General 03/19/22 Rodney Olivas MD [address] [place] [address] Hematology 03/19/22 Obstetrician And Gynaecologist Relationship Specialty Start Date End Date Erin Sams RN PCP - General 03/19/22 Rodney Olivas MD [address] [place] [address] Hematology 03/19/22 Obstetrician And Gynaecologist Relationship Specialty Start Date End Date Erin Sams RN PCP - General 03/19/22 Rodney Olivas MD [address] [place] [address] Hematology 03/19/22 Obstetrician And Gynaecologist Relationship Specialty Start Date End Date Erin Sams RN PCP - General 03/19/22 Rodney Olivas MD [address] [place] [address] Hematology 03/19/22 Obstetrician And Gynaecologist Relationship Specialty Start Date End Date Erin Sams RN PCP - General 03/19/22 Rodney Olivas MD [address] [place] [address] Hematology 03/19/22 Suman Baker MD, PhD [address] [place] [address] Surgeon Surgical Oncology 07/08/22 Obstetrician And Gynaecologist Relationship Specialty Start Date End Date Erin Sams RN PCP - General 03/19/22 Rodney Olivas MD [address] [place] [address] Hematology 03/19/22 Suman Baker MD, PhD [address] [place] [address] Surgeon Surgical Oncology 07/08/22 Obstetrician And Gynaecologist Relationship Specialty Start Date End Date Erin Sams RN PCP - General 03/19/22 Rodney Olivas MD [address] [place] [address] Hematology 03/19/22 Suman Baker MD, PhD [address] [place] [address] Surgeon Surgical Oncology 07/08/22 Obstetrician And Gynaecologist Relationship Specialty Start Date End Date Erin Sams RN PCP - General 03/19/22 Rodney Olivas MD [address] [place] [address] Hematology 03/19/22 Suman Baker MD, PhD [address] [place] [address] Surgeon Surgical Oncology 07/08/22 Cheikh Coelho MD [address] [place] [address] Police District Switchboard Operator Cardiovascular Disease 10/07/22 Obstetrician And Gynaecologist Relationship Specialty Start Date End Date Erin Sams RN PCP - General 03/19/22 Rodney Olivas MD [address] [place] [address] Hematology 03/19/22 Suman Baker MD, PhD [address] [place] [address] Surgeon Surgical Oncology 07/08/22 Cheikh Coelho MD [address] [place] [address] Police District Switchboard Operator Cardiovascular Disease 10/07/22 Obstetrician And Gynaecologist Relationship Specialty Start Date End Date Erin Sams RN PCP - General 03/19/22 Rodney Olivas MD [address] [place] [address] Hematology 03/19/22 Suman Baker MD, PhD [address] [place] [address] Surgeon Surgical Oncology 07/08/22 Cheikh Coelho MD [address] [place] [address] Police District Switchboard Operator Cardiovascular Disease 10/07/22 Obstetrician And Gynaecologist Relationship Specialty Start Date End Date Erin Sams RN PCP - General 03/19/22 Rodney Olivas MD [address] [place] [address] Hematology 03/19/22 Suman Baker MD, PhD [address] [place] [address] Surgeon Surgical Oncology 07/08/22 Cheikh Coelho MD [address] [place] [address] Police District Switchboard Operator Cardiovascular Disease 10/07/22 Obstetrician And Gynaecologist Relationship Specialty Start Date End Date Erin Sams, RUPERT PCP - General 03/19/22 Rodney Olivas MD [address] [place] [address] Hematology 03/19/22 Suman Baker MD, PhD [address] [place] [address] Surgeon Surgical Oncology 07/08/22 Cheikh Coelho MD [address] [place] [phone] Police District Switchboard Operator Cardiovascular Disease 10/07/22 Obstetrician And Gynaecologist Relationship Specialty Start Date End Date Erin Sams, TASH [address] [place] [phone] PCP - General 03/10/23 Rodney Olivas MD [address] [place] [address] Hematology 03/19/22 Suman Baker MD, PhD [address] [place] [address] Surgeon Surgical Oncology 07/08/22 Cheikh Coelho MD [address] [place] [phone] Police District Switchboard Operator Cardiovascular Disease 10/07/22 Obstetrician And Gynaecologist Relationship Specialty Start Date End Date Erin Sams CNP [address] [place] [address] PCP - General 03/10/23 Rodney Olivas MD [address] [place] [address] Hematology 03/19/22 Suman Baker MD, PhD [address] [place] [address] Surgeon Surgical Oncology 07/08/22 Cheikh Coelho MD [address] [place] [address] Police District Switchboard Operator Cardiovascular Disease 10/07/22 Obstetrician And Gynaecologist Relationship Specialty Start Date End Date Erin Sams CNP [address] [place] [address] PCP - General 03/10/23 Rodney Olivas MD [address] [place] [address] Hematology 03/19/22 Suman Baker MD, PhD [address] [place] [address] [place] [address] Surgeon Surgical Oncology 07/08/22 Cheikh Coelho MD [address] [place] [address] Police District Switchboard Operator Cardiovascular Disease 10/07/22 Andreas Ortega MD, MPH [address] [place] [address] [place] [address] Oncologist Medical Oncology 03/31/23 Ron Ruano DO [address] [facility] [address] [facility] [place] [address] Obstetrics & Gynecology 04/06/23 Obstetrician And Gynaecologist Relationship Specialty Start Date End Date Erin Sams, BODY AND FRAME MAN [address] [place] [address] PCP - General 03/10/23 Rodney Olivas MD [address] [place] [address] Hematology 03/19/22 Suman aBker MD, PhD [address] [place] [address] [place] [phone] Surgeon Surgical Oncology 07/08/22 Cheikh Coelho MD [address] [place] [address] Police District Switchboard Operator Cardiovascular Disease 10/07/22 Andreas Ortega MD, MPH [address] [place] [address] [place] [address] Oncologist Medical Oncology 03/31/23 Ron Ruano DO [address] [place] [address] Obstetrics & Gynecology 04/06/23 Scheduled Active and [...] Craig Pagan RN)1213 (Given - Provider: Yvrose Chamberlain, RUPERT)1730 (Given - Provider: Tania Louis RN) 0134 [...] RN)0613 (Rate/Dose Verify - Provider: Tania Louis, RUPERT)0709 (Rate/Dose Verify - Provider: Tania Louis, RUPERT)0825 (Rate/Dose Verify - Provider: Tania Louis RN)1023 [...] Verify - Provider: Yadira Grier RN)0659 (Epidural [place] Volume/Shift Total - Provider: Yadira Grier RN - Comment: shift total: 175 ml remaining)1105 (Rate/Dose Verify - Provider: Alena Wade RN)1122 (Rate/Dose Verify - Provider: Alena Wade RN)1459 (Rate/Dose Verify - Provider: Alena Wade RN)1555 (Rate/Dose Verify - Provider: Alena Wade RN)1848 (Rate/Dose Verify - Provider: Alena Wade RN)1849 (Rate/Dose Verify - Provider: Alena Wade RN)1910 (Epidural [place] Volume/Shift Total - Provider: Alena Wade RN - Comment: 100mL left in cartridge) 0100 (Epidural [place] Volume/Shift Total - Provider: Craig Pagan RN [...] Yadira Grier RN)0633 (Restarted - Provider: Yadira Grier, RN)0659 (Rate/Dose Verify - Provider: Yadira Grier [...] Wade RN)1731 (Restarted - Provider: Alena Wade RN)184 (Rate/Dose Verify - Provider: Alena Wade RN)1849 [...] BE BASED ON THE PRIMARY CLINICAL RECORDS. My [facility] [employer] [facility]. provides no warranty or guarantee of the accuracy or completeness of information in this document.
== END 2023-12-22 17:27 | disposition home or self-care (01) ==
LOC: US 17:26
PROVIDERS: PCP Nurse Practitioner Family; Visit Provider Physician Assistant
DX: E04.9 Nontoxic goiter, unspecified (principal)
CPT/HCPCS: 76536

== ENCOUNTER 2024-01-12 06:56 | Outpatient (OUT) | payer OTHER, SELFPAY ==
--- OUTSIDE RECORDS SUMMARY | 2024-01-12 07:01 | XMS_ITS | CCD ---
Author Organization [facility] Care Team Providers Care Senior Billing Consultant Name Role Phone Ava Lundberg Unavailable Unavailable Primary Care Provider Unavailemanuel Sams RN, Erin Primary Care Provider Unavaildevon Olivas MD, Rodney Unavailable Latrell EMERY, Erin Primary Care Provider Unavaildevon Olivas MD, Rodney Unavailable Oanh DUPONT, PhD, Suman Dayday Unavailable Cheikh Coelho [...] Care Unavailable JEAN CARLOS, FROYLAN Consulting Unavailable CHANCEBUS, CHEIKH Consulting Unavailable LATRELL, ERIN Primary Care Unavailable ADIS, DR SARAHI Quarles Attending Unavailable ADIS, DR SARAHI Quarles Admitting Unavailable ADIS, DR SARAHI Quarles Consulting Unavailable LATRELL, ERIN Primary Care Unavailable GRILLIS ., DR TIMMY Sibley Consulting Unavaila ble GRILLIS ., DR TIMMY Sibley Attending Unavaila ble GRILLIS ., DR TIMMY Sibley Admitting Unavaila ble ZIEBER, DR CAROLYN Quarles Consulting Unavailable HAY ., DR CARMONA Consulting Unavailable AGUBOSIM, JOSÉ LUIS Consulting Unavailable MISC, DR JACOBO Admitting Unavailable LATRELL, ERIN Primary Care Unavailable MISC, DR JACOBO Consulting Unavailable MISC, DR JACOBO Attending Unavailable LATRELL, ERIN Consulting Unavailable LATRELL, ERIN Attending Unavailable LATRELL, ERIN Primary Care Unavailable LATRELL, ERIN Admitting Unavailable Rodney Olivas MD Unavailable Oanh DUPONT, PhD, Suman C Unavailable [phone] Cheikh Coelho MD Unavailable Latrell BIANCHI, Erin S Primary Care Provider Unavailable Primary Care Provider UnavailRon Burciaga Attending Unavailable Ron Ruano Admitting Unavailable Oanh DUPONT, PhD, Suman C Unavailable Jordan DUPONT, MPH, [facility] Unavailable Ron Ruano DO Unavailable RON RUANO Attending Unavailable LIZBET CAST Attending Unavailable ALDEN, RON Attending Unavailable ALDEN, RON Attending Unavailable ALDEN, RON Attending Unavailable ALDEN, RON Attending Unavailable ALDEN, RON Attending Unavailable SERENE, LIZBET Attending Unavailable SERENE, LIZBET Attending Unavailable LATRELL, ERIN S Referring Unavailable Diego Apodaca Attending Unavaila ble LATRELL, ERIN S Primary Care Unavailable MORALEZ, YE Referring Unavailable MORALEZ, YE Referring Unavailable LATRELL, ERIN S Primary Care Unavailable CRAOL SUMMERS Attending Unavailable MORALEZ, YE Referring Unavailable LATRELL, ERIN S Primary Care Unavailable FARSHAD VIGIL Attending Unavailable JORDAN, ANDREAS Referring Unavailable LATRELL, ERIN S Primary Care Unavailable SUMAN BAKER Attending Unavailable SUMAN BAKER Referring Unavailable LATRELL, ERIN S Primary Care Unavailable SUMAN BAKER Attending Unavailable SELF, SELF Referring Unavailable LATRELL, ERIN S Primary Care Unavailable JORDNA, ANDREAS Attending Unavailable JORDAN, ANDREAS Referring Unavailable LATRELL, ERIN S Primary Care Unavailable JORDAN, ANDREAS Attending Unavailable JORDAN, ANDREAS Referring Unavailable LATRELL, ERIN S Primary Care Unavailable JORDAN, ANDREAS Attending Unavailable JORDAN, ANDREAS Referring Unavailable LATRELL, ERIN S Primary Care Unavailable MORALEZ, YE Attending Unavailable SELF, SELF Referring Unavailable LATRELL, ERIN S Primary Care Unavailable LATRELL, ERIN S Primary Care Unavailable SELF, SELF Referring Unavailable Allergies Allergy Classification Reported Allergen(s) Allergy Type Date of Onset Reaction(s) Facility (12 sources) gabapentin Drug Allergy 3 Nausea Only, Diarrhea [facility] (1 source) metroNIDAZOLE Drug Allergy 4 [facility] Medications Current Medications Medication Drug Class(es) Dates Sig (Normalized) Sig (Original) amylase 721989 unt / lipase 85602 unt / protease 101097 unt delayed release oral capsule (9 sources) Start: 11-22-2023 Pancrelipase, Jrc-Hpap-Akdi, (Creon) 54535-886164 units Cap DR Particles Please take one cap with each meal, and one cap with each snack. 120 capsule 11/22/2023 Active Start: 09-10-2022 Pancrelipase, Qtv-Ptgi-Lrdc, (Creon) 02285-309779 units Cap DR Particles Indications: Exocrine pancreatic [...] Mild Pain. Active 500 ml albumin human, mcc 50 mg/ml injection (1 source) Human Serum [...] oral spray 2 spray polyethylene glycol 3350 48417 mg powder for oral solution (2 sources) Osmotic Laxative Start: 04-23-2022 End: 06-09-2022 polyethylene glycol 17 GM/SCOOP Powder powder 11 AM: Take entire contents over 2 hours as instructed. 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 In the context of a normal nhbce-5-ummwjjjqqiq concentration, this is consistent with an MM phenotype. ADDITIONAL INFORMATION Method: Isoelectric Focusing, This assay identifies the phenotype of the circulating fxmga-2-yjhtqogwnrx (A1A) protein. If the patient is on replacement therapy or has been recently transfused, the phenotype will detect patient and replacement or transfused plasma A1A protein. This test also cannot detect a null allele which could be responsible for an A1A deficiency. Performed By: #### Y A1ATP #### [facility] (DEFAULT) [address] [place] [address]37 Fnwtr-0-Aiglkxeoscs S Allele 120 mg/dL Normal 100-190 [facility] Comment on above: Result Comment: ADDITIONAL INFORMATION Method: Nephelometry Test Performed by: [facility] [address] [place] [address] Chemical Applicator: Ed Russo M.D. Ph.D.; CLIA# [id number] Performed By: #### Anna A1ATP #### [facility] (DEFAULT) [address] [place] [address]9668 HUNTER SCREEN IFAon 11-26-2023 Anti Nuclear Antibody Pattern Homogenous/Diffuse Normal [facility] Comment on above: Performed By: #### WILNER Persaud MA, ELLA #### [facility] (DEFAULT) [address] [place] [address] Antinuclear Antibody, IFA Positive Abnormal Negative [facility] Comment on above: Performed By: #### WILNER Persaud MA, ELLA #### [facility] (DEFAULT) [address] [place] [address] 23854 Quant Antinuclear Antibody 1:80 Abnormal (none) [facility] Comment on above: Performed By: #### WILNER Persaud MA, ELLA #### [facility] (DEFAULT) [address] [place] [address] 37610 ANTI MITOCHONDRIAL ANTIBODYo n 11-26-2023 Anti-Mitochondrial Antibody Negative Normal Negative [facility] Comment on above: Performed By: #### WILNER Persaud MA, ELLA #### [facility] (DEFAULT) [address] [place] [address] 96848 ANTI SMOOTH MUSCLE ANTIBODYo n 11-26-2023 Smooth Muscle Antibody Negative Normal Negative [facility] Comment on above: Performed By: #### WILNER Persaud MA, ELLA #### [facility] (DEFAULT) [address] [place] [address] CBC AND ELECTRONIC DIFFon Basophils (Bld) [#/Vol] 0.05 10*3/uL Normal 0.00-0.15 [facility] Comment on above: Performed By: #### L [id number] #### [facility] (DEFAULT) [address] [place] [address] 70419 Basophils/100 WBC (Bld) 0.6 % Normal [facility] Comment on above: Performed By: #### L [id number] #### [facility] (DEFAULT) [address] [place] [address] 28226 DIFF STATUS Electronic Differential Normal [facility] Comment on above: Performed By: #### L AB980 #### [facility] (DEFAULT) [address] [address] Eosinophils (Bld) [#/Vol] 0.15 10*3/uL Normal 0.00-0.42 [facility] Comment on above: Performed By: #### L AB980 #### [facility] (DEFAULT) [address] [address] Eosinophils/100 WBC (Bld) 1.9 % Normal [facility] Comment on above: Performed By: #### L AB980 #### [facility] (DEFAULT) [address] [address] Hematocrit (Bld) [Volume fraction] 42.6 % Normal 34.9-44.3 [facility] Comment on above: Performed By: #### L AB980 #### [facility] (DEFAULT) [address] [address] Hemoglobin (Bld) [Mass/Vol] 13.6 g/dL Normal 11.4-15.2 [facility] Comment on above: Performed By: #### L AB980 #### [facility] (DEFAULT) [address] [address] Immature Grans % 0.5 % Normal [facility] Comment on above: Performed By: #### L AB980 #### [facility] (DEFAULT) [address] [address] Immature Grans Absolute 0.04 K/uL Normal <=0.08 [facility] Comment on above: Performed By: #### L AB980 #### [facility] (DEFAULT) [address] [address] Lymphocytes (Bld) [#/Vol] 2.06 10*3/uL Normal 1.16-3.51 [facility] Comment on above: Performed By: #### L AB980 #### [facility] (DEFAULT) [address] [place] [address] 28395 Lymphocytes/100 WBC (Bld) 25.8 % Normal [facility] Comment on above: Performed By: #### L AB980 #### [facility] (DEFAULT) [address] [place] [address] 14758 MCV (RBC) [Entitic vol] 88.9 fL Normal 79.6-97.7 [facility] Comment on above: Performed By: #### L AB980 #### [facility] (DEFAULT) [address] [address] Mean Cell Hgb 28.4 pg Normal 25.9-33.9 [facility] Comment on above: Performed By: #### L AB980 #### [facility] (DEFAULT) [address] [address] Mean Cell Hgb Conc 31.9 g/dL Normal 31.4-35.9 [facility] Comment on above: Performed By: #### L AB980 #### [facility] (DEFAULT) [address] [address] Monocytes (Bld) [#/Vol] 0.40 10*3/uL Normal 0.22-0.87 [facility] Comment on above: Performed By: #### L AB980 #### [facility] (DEFAULT) [address] [address] Monocytes/100 WBC (Bld) 5.0 % Normal [facility] Comment on above: Performed By: #### L AB980 #### [facility] (DEFAULT) [address] [address] Nucleated RBC 0.0 /100 WBC Normal <=0.2 [facility] Comment on above: Performed By: #### L AB980 #### [facility] (DEFAULT) [address] [address] Platelet mean volume (Bld) [Entitic vol] 10.2 fL Normal 8.5-12.2 [facility] Comment on above: Performed By: #### L AB980 #### [facility] (DEFAULT) [address] [place] [address] 39352 Platelets (Bld) [#/Vol] 379 10*3/uL Normal 150-393 [facility] Comment on above: Performed By: #### L AB980 #### [facility] (DEFAULT) [address] [place] [address] 47114 RBC (Bld) [#/Vol] 4.79 10*6/uL Normal 3.91-5.04 [facility] Comment on above: Performed By: #### L AB980 #### [facility] (DEFAULT) [address] [place] [address] 81769 RBC Distribution 12.8 % Normal 10.8-14.9 [facility] Comment on above: Performed By: #### L AB980 #### [facility] (DEFAULT) [address] [place] [address] 18253 Segs + Bands Auto 66.2 % Normal [facility] Comment on above: Performed By: #### L AB980 #### [facility] (DEFAULT) [address] [place] [address] 30575 Segs + Bands,Absolute Auto 5.27 K/uL Normal 1.64-7.28 [facility] Comment on above: Performed By: #### L AB980 #### [facility] (DEFAULT) [address] [place] [address] 90805 WBC (Bld) [#/Vol] 7.97 10*3/uL Normal 3.99-11.19 [facility] Comment on above: Performed By: #### L AB980 #### [facility] (DEFAULT) [address] [place] [address]056 CERULOPLASMINon 11-26-2023 Ceruloplasmin [Mass/Vol] 31 mg/dL 20 - 60 mg/dL [facility] Ceruloplasmin 31 mg/dL Normal 20-60 [facility] Comment on above: Performed By: #### Y TT #### [facility] (DEFAULT) [address] [place] [address] CHEM 7 (LYTES,BUN,CREA,GLUC) on 11-26-2023 Anion gap [Moles/Vol] 17 mmol/L 7 - 17 mmol/L [facility] Chloride [Moles/Vol] 102 mmol/L 98 - 10 8 mmol/L [facility] CO2 [Moles/Vol] 26 mmol/L 21 - 31 mmol/L [facility] Creatinine [Mass/Vol] 0.55 mg/dL 0.50 - 1.20 mg/dL [facility] eGFR, CKD-EPI, Female - PINF [facility] Comment on above: Reported eGFR is bas ed on the CKD-EPI 2020 equation using creatinine, age, and sex. Glucose [Mass/Vol] 123 mg/dL High 70 - 99 mg/dL [facility] Osmolality Calc [Osmolality] 294 [facility] Potassium [Moles/Vol] 3.8 mmol/L 3.5 - 5.0 mmol/L [facility] Sodium [Moles/Vol] 141 mmol/L 135 - 145 mmol/L [facility] Urea nitrogen [Mass/Vol] 7 mg/dL 7 - 25 mg/dL [facility] Urea nitrogen/Creatinine [Mass ratio] 13 mg/mg [facility] Anion gap [Moles/Vol] 17 mmol/L Normal 7-17 [facility] Comment on above: Performed By: #### Y A1ATP #### [facility] (DEFAULT) [address] [place] [address] Chloride [Moles/Vol] 102 mmol/L Normal 98-108 [facility] Comment on above: Performed By: #### Y A1ATP #### [facility] (DEFAULT) [address] [place] [address] CO2 [Moles/Vol] 26 mmol/L Normal 21-31 [facility] Comment on above: Performed By: #### Y A1ATP #### [facility] (DEFAULT) [address] [place] [address] Creatinine [Mass/Vol] 0.55 mg/dL Normal 0.50-1.20 [facility] Comment on above: Performed By: #### Y A1ATP #### [facility] (DEFAULT) [address] [place] [address] 36454 eGFR, CKD-EPI, Female > Normal >=60 [facility] Comment on above: Result Comment: Repo rted eGFR is based on the CKD-EPI 2020 equation using creatinine, age, and sex. Performed By: #### Y A1ATP #### [facility] (DEFAULT) [address] [place] [address]42 Glucose [Mass/Vol] 123 mg/dL High 70-99 [facility] Comment on above: Performed By: #### Y A1ATP #### [facility] (DEFAULT) [address] [place] [address] 72528 Osmolality [Osmolality] 294 mosm/kg Normal 278-305 [facility] Comment on above: Performed By: #### Y A1ATP #### [facility] (DEFAULT) [address] [place] [address] 12067 Potassium [Moles/Vol] 3.8 mmol/L Normal 3.5-5.0 [facility] Comment on above: Performed By: #### Y A1ATP #### [facility] (DEFAULT) [address] [place] [address] 35033 Sodium [Moles/Vol] 141 mmol/L Normal 135-145 [facility] Comment on above: Performed By: #### Y A1ATP #### [facility] (DEFAULT) [address] [place] [address] 76258 Urea nitrogen [Mass/Vol] 7 mg/dL Normal 7-25 [facility] Comment on above: Performed By: #### Y A1ATP #### [facility] (DEFAULT) [address] [place] [address] 19833 Urea nitrogen/Creatinine [Mass ratio] 13 mg/mg Normal [facility] Comment on above: Performed By: #### Y A1ATP #### [facility] (DEFAULT) [address] [place] [address] 19520 FERRITINon 11-26-2023 Ferritin [Mass/Vol] 26.5 ng/mL 7.3 - 27 0.7 ng/mL [facility] Interpretation and review of laboratory results Normal [facility] Ferritin [Mass/Vol] 26.5 ng/mL Normal 7.3-270.7 [facility] Comment on above: Performed By: #### Y TT #### [facility] (DEFAULT) [address] [place] [address] 71189 HEPATIC FUNCTION PANELon Albumin [Mass/Vol] 4.7 g/dL 3.5 - 5.0 g/dL [facility] ALP [Catalytic activity/Vol] 67 U/L 32 - 126 U/L [facility] ALT [Catalytic activity/Vol] 68 U/L High 9 - 48 U/L [facility] AST [Catalytic activity/Vol] 42 U/L High 10 - 39 U/L [facility] Bilirubin [Mass/Vol] 0.5 mg/dL NINF - 1.5 mg/dL [facility] Bilirubin.direct [Mass/Vol] 0.1 mg/dL NINF - 0.3 mg/dL [facility] Protein [Mass/Vol] 7.4 g/dL 6.4 - 8.3 g/dL [facility] Albumin [Mass/Vol] 4.7 g/dL Normal 3.5-5.0 [facility] Comment on above: Performed By: #### Y A1ATP #### [facility] (DEFAULT) [address] [place] [address] ALP [Catalytic activity/Vol] 67 U/L Normal 32-126 [facility] Comment on above: Performed By: #### Y A1ATP #### [facility] (DEFAULT) [address] [place] [address] 56237 ALT [Catalytic activity/Vol] 68 U/L High 9-48 [facility] Comment on above: Performed By: #### Y A1ATP #### [facility] (DEFAULT) [address] [address] AST [Catalytic activity/Vol] 42 U/L High 10-39 [facility] Comment on above: Performed By: #### Y A1ATP #### [facility] (DEFAULT) [address] [address] Bilirubin [Mass/Vol] 0.5 mg/dL Normal <1.5 [facility] Comment on above: Performed By: #### Y A1ATP #### [facility] (DEFAULT) [address] [address] Bilirubin.indirect [Mass/Vol] 0.1 mg/dL Normal <0.3 [facility] Comment on above: Performed By: #### Y A1ATP #### [facility] (DEFAULT) [address] [address] Protein [Mass/Vol] 7.4 g/dL Normal 6.4-8.3 [facility] Comment on above: Performed By: #### Y A1ATP #### [facility] (DEFAULT) [address] [address] IMMUNOFIXATION SERUMon 11-25 REVIEWED BY: Timmy Morel MD Normal [facility] Comment on above: Performed By: #### Y TT #### [facility] (DEFAULT) [address] [address] Serum Immunofixation No definitive monoclonal protein is identified. Normal [facility] Comment on above: Performed By: #### Y TT #### [facility] (DEFAULT) [address] [address] IMMUNOGLOBULINS IGG IGA IGMo n 11-26-2023 IgA [Mass/Vol] 179 mg/dL Normal 66-433 [facility] Comment on above: Performed By: #### Y TT #### [facility] (DEFAULT) [address] [place] [address] IgG [Mass/Vol] 847 mg/dL Normal 600-1714 [facility] Comment on above: Performed By: #### Y TT #### [facility] (DEFAULT) [address] [place] [address]39 IgM [Mass/Vol] 138 mg/dL Normal 45-281 [facility] Comment on above: Performed By: #### Y TT #### [facility] (DEFAULT) [address] [place] [address] IRON/IRON BINDING/TRANSFERRI Non 11-26-2023 Interpretation and review of laboratory results Normal [facility] Iron [Mass/Vol] 79 ug/dL [facility] Iron binding capacity [Mass/Vol] 346 [facility] Iron saturation [Mass fraction] 23 % 20 - 55 % [facility] Transferrin [Mass/Vol] 277 mg/dL 200 - 400 mg/dL [facility] Iron [Mass/Vol] 79 ug/dL Normal 40-174 [facility] Comment on above: Performed By: #### Y A1ATP #### [facility] (DEFAULT) [address] [place] [address] Iron Saturation 23 % Normal 20-55 [facility] Comment on above: Performed By: #### Y A1ATP #### [facility] (DEFAULT) [address] [place] [address]30 Total Iron Binding Capacity 346 mcg/dL Normal 250-425 [facility] Comment on above: Performed By: #### Y A1ATP #### [facility] (DEFAULT) [address] [place] [address]164 Transferrin [Mass/Vol] 277 mg/dL Normal 200-400 [facility] Comment on above: Performed By: #### Y A1ATP #### [facility] (DEFAULT) [address] [place] [address] 27812 No Panel Informationon 11-25 Interpretation and review of laboratory results Abnormal [facility] Interpretation and review of laboratory results Normal [facility] PROTEIN ELECTROPHORESISon Albumin [Mass/Vol] 4.6 g/dL Normal 3.5-5.0 [facility] Comment on above: Performed By: #### Y TT #### [facility] (DEFAULT) [address] [address] Alpha 1 0.3 g/dL Normal 0.2-0.4 [facility] Comment on above: Performed By: #### Y TT #### [facility] (DEFAULT) [address] [address] Alpha 2 0.8 g/dL Normal 0.5-1.0 [facility] Comment on above: Performed By: #### Y TT #### [facility] (DEFAULT) [address] [address] Beta 0.9 g/dL Normal 0.5-1.1 [facility] Comment on above: Performed By: #### Y TT #### [facility] (DEFAULT) [address] [address] Gamma 0.8 g/dL Normal 0.6-1.5 [facility] Comment on above: Performed By: #### Y TT #### [facility] (DEFAULT) [address] [place] [address] Interpretation By: Timmy Morel MD Normal [facility] Comment on above: Performed By: #### Y TT #### [facility] (DEFAULT) [address] [address] Spe Interpretation Normal serum protein electrophoresis pattern. Normal [facility] Comment on above: Performed By: #### Y TT #### [facility] (DEFAULT) [address] [place] [address] PROTIME-INRon 11-26-2023 INR Coag (Bld) [Relative time] 1.0 {INR} 0.9 - 1.1 [facility] Interpretation and review of laboratory results Normal [facility] PT Coag (PPP) [Time] 13.4 s [facility] INR Coag (PPP) [Relative time] 1.0 {INR} Normal 0.9-1.1 [facility] Comment on above: Performed By: #### P TI #### [facility] (DEFAULT) [address] [place] [address] PT Coag (PPP) [Time] 13.4 s Normal 11.9-14.2 [facility] Comment on above: Performed By: #### P TI #### [facility] (DEFAULT) [address] [place] [address] 9[address]99 SPE SERUM TOTAL PROTEINon Protein [Mass/Vol] 7.3 g/dL Normal 6.4-8.3 [facility] Comment on above: Performed By: #### Y TT #### [facility] (DEFAULT) [address] [place] [address] T-TRANSGLUTAMINASE IGG/IGA, ABon 11-26-2023 T-TRANSGLUTAMINASE IGA AB <1.2 Normal <4.0 (Negative) [facility] Comment on above: Performed By: #### Y TT #### [facility] (DEFAULT) [address] [address] Tissue Transglutaminase, IgG 2.4 U/mL Normal <6.0 (Negative) [facility] Comment on above: Result Comment: Test Performed by: [facility] [address] [place] [address] Chemical Applicator: Ed Russo M.D. Ph.D.; CLIA# [id number] Performed By: #### Y TT #### [facility] (DEFAULT) [address] [place] [address] TSHon 11-26-2023 Interpretation and review of laboratory results Normal [facility] TSH Qn 1.315 m[IU]/L [facility] TSH 1.315 uIU/mL Normal 0.550-4.780 [facility] Comment on above: Performed By: #### Y TT #### [facility] (DEFAULT) [address] [place] [address] ABDOMEN/PELVIS WITH AND W ITHOUT CONTRASTon [...] error, please notify the sender immediately at [phone] and permanently delete the original report and destroy any copies or printouts. Normal [facility] CBC AND ELECTRONIC DIFFon Basophils (Bld) [#/Vol] 0.05 10*3/uL Normal 0.00-0.15 [facility] Comment on above: Performed By: #### L [id number] #### [facility] (DEFAULT) [address] [place] [address]19 Basophils/100 WBC (Bld) 0.6 % Normal [facility] Comment on above: Performed By: #### L AB980 #### [facility] (DEFAULT) [address] [place] [address]851 DIFF STATUS Electronic Differential Normal [facility] Comment on above: Performed By: #### L AB980 #### [facility] (DEFAULT) [address] [place] [address]106 Eosinophils (Bld) [#/Vol] 0.19 10*3/uL Normal 0.00-0.42 [facility] Comment on above: Performed By: #### L AB980 #### [facility] (DEFAULT) [address] [place] [address] 5[address]34 Eosinophils/100 WBC (Bld) 2.3 % Normal [facility] Comment on above: Performed By: #### L AB980 #### [facility] (DEFAULT) [address] [place] [address]181 Hematocrit (Bld) [Volume fraction] 41.9 % Normal 34.9-44.3 [facility] Comment on above: Performed By: #### L AB980 #### [facility] (DEFAULT) [address] [place] [address] 73953 Hemoglobin (Bld) [Mass/Vol] 13.5 g/dL Normal 11.4-15.2 [facility] Comment on above: Performed By: #### L AB980 #### [facility] (DEFAULT) [address] [address] Immature Grans % 0.2 % Normal [facility] Comment on above: Performed By: #### L AB980 #### [facility] (DEFAULT) [address] [address] Immature Grans Absolute < Normal <=0.08 [facility] Comment on above: Performed By: #### L AB980 #### [facility] (DEFAULT) [address] [place] [address]36 Lymphocytes (Bld) [#/Vol] 2.07 10*3/uL Normal 1.16-3.51 [facility] Comment on above: Performed By: #### L AB980 #### [facility] (DEFAULT) [address] [address] Lymphocytes/100 WBC (Bld) 25.6 % Normal [facility] Comment on above: Performed By: #### L AB980 #### [facility] (DEFAULT) [address] [address] MCV (RBC) [Entitic vol] 86.9 fL Normal 79.6-97.7 [facility] Comment on above: Performed By: #### L AB980 #### [facility] (DEFAULT) [address] [address] Mean Cell Hgb 28.0 pg Normal 25.9-33.9 [facility] Comment on above: Performed By: #### L AB980 #### [facility] (DEFAULT) [address] [address] Mean Cell Hgb Conc 32.2 g/dL Normal 31.4-35.9 [facility] Comment on above: Performed By: #### L AB980 #### [facility] (DEFAULT) [address] [address] Monocytes (Bld) [#/Vol] 0.66 10*3/uL Normal 0.22-0.87 [facility] Comment on above: Performed By: #### L AB980 #### [facility] (DEFAULT) [address] [address] Monocytes/100 WBC (Bld) 8.1 % Normal [facility] Comment on above: Performed By: #### L AB980 #### [facility] (DEFAULT) [address] [address] Nucleated RBC 0.0 /100 WBC Normal <=0.2 [facility] Comment on above: Performed By: #### L AB980 #### [facility] (DEFAULT) [address] [address] Platelet mean volume (Bld) [Entitic vol] 9.7 fL Normal 8.5-12.2 [facility] Comment on above: Performed By: #### L AB980 #### [facility] (DEFAULT) [address] [address] Platelets (Bld) [#/Vol] 318 10*3/uL Normal 150-393 [facility] Comment on above: Performed By: #### L AB980 #### [facility] (DEFAULT) [address] [address] RBC (Bld) [#/Vol] 4.82 10*6/uL Normal 3.91-5.04 [facility] Comment on above: Performed By: #### L AB980 #### [facility] (DEFAULT) [address] [place] [address] 64898 RBC Distribution 14.2 % Normal 10.8-14.9 [facility] Comment on above: Performed By: #### L AB980 #### [facility] (DEFAULT) [address] [place] [address]60 Segs + Bands Auto 63.2 % Normal [facility] Comment on above: Performed By: #### L AB980 #### [facility] (DEFAULT) [address] [place] [address]33 Segs + Bands,Absolute Auto 5.11 K/uL Normal 1.64-7.28 [facility] Comment on above: Performed By: #### L AB980 #### [facility] (DEFAULT) [address] [place] [address] WBC (Bld) [#/Vol] 8.10 10*3/uL Normal 3.99-11.19 [facility] Comment on above: Performed By: #### L AB980 #### [facility] (DEFAULT) [address] [place] [address]51 CHROMOGRANIN Aon 11-06-2023 Chromogranin A 30 ng/mL Normal <93 [facility] Comment on above: Result Comment: ADDITIONAL INFORMATION The testing method is a homogeneous time-resolved immunofluorescent assay manufactured by [employer] and performed on the [employer]act Plus. Values obtained with different [...] examination and other findings. Test Performed by: [facility] [address] [place] [address] Chemical Applicator: Ed Russo M.D. Ph.D.; CLIA# [id number] Performed By: #### Y A1ATP #### [facility] (DEFAULT) [address] [place] [address]20 COMPREHENSIVE METABOLIC PANE Shamir 11-06-2023 Albumin [Mass/Vol] 4.6 g/dL Normal 3.5-5.0 [facility] Comment on above: Performed By: #### C MPN, LDO #### [facility] (DEFAULT) [address] [address] ALP [Catalytic activity/Vol] 75 U/L Normal 32-126 [facility] Comment on above: Performed By: #### C MPN, LDO #### [facility] (DEFAULT) [address] [place] [address]322 ALT [Catalytic activity/Vol] 66 U/L High 9-48 [facility] Comment on above: Performed By: #### C MPN, LDO #### [facility] (DEFAULT) [address] [place] [address]1941 Anion gap [Moles/Vol] 13 mmol/L Normal 7-17 [facility] Comment on above: Performed By: #### C MPN, LDO #### [facility] (DEFAULT) [address] [place] [address] 12602 AST [Catalytic activity/Vol] 40 U/L High 10-39 [facility] Comment on above: Performed By: #### C MPN, LDO #### [facility] (DEFAULT) [address] [place] [address] 63652 Bilirubin [Mass/Vol] 0.3 mg/dL Normal <1.5 [facility] Comment on above: Performed By: #### C MPN, LDO #### [facility] (DEFAULT) [address] [place] [address] 10486 Calcium [Mass/Vol] 9.7 mg/dL Normal 8.6-10.5 [facility] Comment on above: Performed By: #### C MPN, LDO #### [facility] (DEFAULT) [address] [place] [address] 74418 Chloride [Moles/Vol] 104 mmol/L Normal 98-108 [facility] Comment on above: Performed By: #### C MPN, LDO #### [facility] (DEFAULT) [address] [place] [address] 71537 CO2 [Moles/Vol] 30 mmol/L Normal 21-31 [facility] Comment on above: Performed By: #### C MPN, LDO #### [facility] (DEFAULT) [address] [place] [address] 89802 Creatinine [Mass/Vol] 0.61 mg/dL Normal 0.50-1.20 [facility] Comment on above: Performed By: #### C MPN, LDO #### [facility] (DEFAULT) [address] [place] [address]37 eGFR, CKD-EPI, Female > Normal >=60 [facility] Comment on above: Result Comment: Repo rted eGFR is based on the CKD-EPI 2020 equation using creatinine, age, and sex. Performed By: #### C MPN, LDO #### [facility] (DEFAULT) [address] [place] [address] 09434 Glucose [Mass/Vol] 62 mg/dL Low 70-99 [facility] Comment on above: Performed By: #### C MPN, LDO #### [facility] (DEFAULT) [address] [place] [address] 85074 Osmolality [Osmolality] 293 mosm/kg Normal 278-305 [facility] Comment on above: Performed By: #### C MPN, LDO #### [facility] (DEFAULT) [address] [place] [address] 35016 Potassium [Moles/Vol] 3.9 mmol/L Normal 3.5-5.0 [facility] Comment on above: Performed By: #### C MPN, LDO #### [facility] (DEFAULT) [address] [place] [address] 08751 Protein [Mass/Vol] 7.3 g/dL Normal 6.4-8.3 [facility] Comment on above: Performed By: #### C MPN, LDO #### [facility] (DEFAULT) [address] [place] [address] 91922 Sodium [Moles/Vol] 143 mmol/L Normal 135-145 [facility] Comment on above: Performed By: #### C MPN, LDO #### [facility] (DEFAULT) [address] [place] [address] 55975 Urea nitrogen [Mass/Vol] 6 mg/dL Low 7-25 [facility] Comment on above: Performed By: #### C MPN, LDO #### [facility] (DEFAULT) [address] [place] [address] 80295 Urea nitrogen/Creatinine [Mass ratio] 10 mg/mg Normal [facility] Comment on above: Performed By: #### C MPN, LDO #### [facility] (DEFAULT) [address] [place] [address] 27443 LACTATE DEHYDROGENASEon 10-18 LD Total 161 U/L Normal 100-190 [facility] Comment on above: Performed By: #### C MPN, LDO #### [facility] (DEFAULT) [address] [place] [address]17 Shamir 09-25-2023 L Specimen: [id number] Received: 09/27/23 Status: MARIANNA Mosqueda Num: [id number] Spec Type: Surgical Subm Dr: Ron Ruano Tissues: A Placenta - 3rd Trimester (Greater than 28 weeks) (PLACENTA) Procedures: HE/3, Gross/Micro L5 Age/ Patient Sex Location Account Attending Physician Zainab Mcclure 28/F LABELL [id number] Ron Ruano SPEC NUM: [id number] RECD: 09/27/23 STATUS: MARIANNA MOSQUEDA NUM: [id number] AUSTEN: 09/25/[address]: Ron Ruano ENTERED: 09/27/23 [facility] DR: [place],Lab SPEC TYPE: Surgical DEPT: CARL [...] Zainab Swift per requisition, Zainab Mcclure in [employer], same Gross Description Received in formalin labeled [...] of the cut surface of the placenta. Manager Retention sections are submitted in 3 cassettes as follows: A1 - cord and central disc Specimen: [id number] Received: 09/27/23 Status: TATIANNAParrish Mosqueda Num: [id number] Spec Type: Surgical Subm Dr: Ron Ruano Tissues: A Placenta - 3rd Trimester (Greater than 28 weeks) (PLACENTA) Procedures: Daniel WATT Patient: Zainab Mcclure [id number] (Continued) Specimen: [id number] Received: 09/27/23 (Continued) Gross Description (Continued) Signed (signature on file) Hawk Stevens MD 09/28/232017 Specimen: [id number] Received: 09/27/23 Status: MARIANNA Mosqueda Num: [id number] Spec Type: Surgical Subm Dr: Ron Ruano Tissues: A Placenta - 3rd Trimester (Greater than 28 weeks) (PLACENTA) Procedures: Daniel WATT L5 Patient: Zainab Mcclure [id number] (Continued) Specimen: [id number] Received: 09/27/23 (Continued) Gross Description (Continued) A2 - membranes and marginal disc A3 - Superficial lesion CPT Codes 33346 Specimen: [id number] Received: 09/27/23 Status: MARIANNA Mosqueda Num: [id number] Spec Type: Surgical Subm Dr: Ron Ruano Tissues: A Placenta - 3rd Trimester (Greater than 28 weeks) (PLACENTA) Procedures: HE/3, Gross/Micro L5 Patient: Zainab Mcclure [id number] (Continued) Signed (signature on file) Hawk Stevens MD 09/28/232017 [facility] CHROMOGRANIN Aon 03-11-2023 Chromogranin A <20 Normal <93 [facility] Comment on above: Result Comment: ADDITIONAL INFORMATION This test was developed and its performance characteristics determined by [facility] in a manner consistent with CLIA requirements. [...] homogeneous time-resolved immunofluorescent assay manufactured by [employer] and performed on the [employer] K[employer] Compact Plus. Values obtained with different assay methods or kits may be different and cannot be used interchangeably. Test results cannot be interpreted as absolute evidence for the presence or absence of malignant disease. Test Performed by: [facility] [address] [address] Chemical Applicator: Ed Russo M.D. Ph.D.; CLIA# [id number] Performed By: #### Y A1ATP #### [facility] (DEFAULT) [address] [place] [address] MRI ABDOMEN/PELVIS WITHOUT C [facility] 03-11-2023 MRI ABDOMEN/PELVIS WITHOUT [...] not well visualized on this exam. Normal [facility] IMPRESSION: 1. Stable postoperative changes from [...] is not well visualized on this exam. [facility] Radiology Study observation (narrative) [facility] MRI ABDOMEN/PELVIS WITHOUT C ONTRASTOrdered By: Mandi Montiel on 03-11-2023 [facility] Work Phone: CT Chest W contrast Jason IMPRESSION: Stable [...] No suspicious osseous lesion. RADIOLOGY Benjamin Santos MB/[facility] - 10/23/2022 EXAM: CT CHEST WITH CONTRAST, [...] I have reviewed and approved this report. [facility] CT Chest W contrast IVOrdere d By: Benjamin Santos on 10-23-[address] [facility] [address] Chest W contrast Jason [facility] 04-0 [...] for mass or adenopathy in the neck. [facility] Radiology Study observation (narrative) [facility] CT Neck W contrast IVOrdered By: Miguel Espinal on 10-22-2022 [facility] Work Phone: Cardiac echo study Procedure Ordered By: Guerrero Carvalho on 10-22-2022 Ao peak raj 1.26 m/s [facility] Work Phone: Ao VTI 19.98 cm [facility] Work Phone: Ascending aorta 2.62 cm [facility] Work Phone: AV LVOT peak gradient 3 mmHg [facility]: [facility] mean gradient [facility]: [facility] peak gradient 6 mmHG [facility] Work Phone: AV valve area 2.24 cm2 [facility] Work Phone: AV Velocity Ratio 0.70 [facility] Work Phone: FRANK (continuity Vmax) 1.82 cm2 [facility] Work Phone: FRANK (continuity VTI) 2.24 cm2 [facility] Work Phone: FRANK index (continuity Vmax) 1.06 m/s [facility] Work Phone: FRANK index (continuity VTI) 1.30 cm2/m2 [facility] Work Phone: Avg e' pk raj 0.15 m/s [facility] Work Phone: Avg E/e' ratio 4.89 [facility] Work Phone: Body surface area Derived from formula 1.72 m2 [facility] Work Phone: BP EF 62 % [facility] Work Phone: DI (Vmax) 0.70 [facility] Work Phone: DI (VTI) 0.86 m/2 [facility] Work Phone: E wave decelartion time 217.58 msec [facility] Work Phone: e' lateral pk raj 0.1597 m/s [facility] Work Phone: e' lateral pk raj 0.16 m/s [facility] Work Phone: e' septal pk raj 0.1401 m/s [facility] Work Phone: e' septal pk raj 0.14 m/s [facility] Work Phone: E/A ratio 0.74 [facility] Work Phone: E/e' lateral ratio 4.57 [facility] Work Phone: E/e' septal ratio 5.21 [facility] Work Phone: EF SP 2CH 64 [facility] Work Phone: EF SP 4CH 59 [facility] Work Phone: FS 33 % 28 - 44 % [facility] Work Phone: IVC ostium 1.46 cm [facility] Work Phone: IVS 0.61 cm [facility] Work Phone: LA AREA 2CH 13.72 cm2 [facility] Work Phone: LA area 4CH 9.33 cm2 [facility] Work Phone: LA ESV BP (MOD) 29 mL [facility] Work Phone: LA ESV BP (MOD) index 17 mL/m2 [facility] Work Phone: LA ESV SP 2CH (MOD) 37 mL [facility] [place] Work Phone: LA ESV SP 4CH (MOD) 19 mL [facility] [place] Work Phone: Long Strain -21.7 % [facility] Work Phone: LV EDV BP 71 mL [facility] Work Phone: LV EDV SP 2CH 76 mL [facility] Work Phone: LV EDV SP 4CH 61 mL [facility] Work Phone: LV ESV BP 27 mL [facility] Work Phone: LV ESV SP 2CH 27 mL [facility] Work Phone: LV ESV SP 4CH 25 mL [facility] Work Phone: LV mass 68.53 g [facility] Work Phone: LV Mass Index 39.8 g/m2 [facility] Work Phone: LV RWT 0.30 [facility] Work Phone: LV stroke volume BP (ml) 44 mL [facility] Work Phone: LV stroke volume index BP 25.58 mL/m2 [facility] Work Phone: LVIDD 4.10 cm [facility] Work Phone: LVIDS 2.73 cm [facility] Work Phone: LVOT area 2.60 cm2 [facility] Work Phone: LVOT diameter 1.82 cm [facility] Work Phone: LVOT peak raj 0.88 m/s [facility] Work Phone: LVOT peak VTI 17.19 cm [facility] Work Phone: LVOT stroke volume 45 cm3 [facility] Work Phone: LVOT stroke volume index 25.99 ml/m2 [facility] Work Phone: MV pk A raj 0.98 m/s [facility] Work Phone: MV pk E raj 0.73 m/s [facility] Work Phone: MV stenosis pressure 1/2 time 63.10 ms [facility] Work Phone: MV valve area p 1/2 method 3.49 cm2 [facility] Work Phone: OS AV VTI RATIO PRE STRESS 0.86 [facility] Work Phone: OS ECHO LV BIPLANE SYSTOLIC VOLUME INDEX 15.70 mL/m2 [facility] Work Phone: [facility] ECHO LV BP DIASTOLIC VOLUME INDEX 41.28 mL/m2 [facility] Work Phone: PV peak gradient 4 mmHg [facility] Work Phone: PV PK RAJ 0.97 m/s [facility] Work Phone: PW 0.61 cm [facility] Work Phone: RA vol index 4CH (MOD) 12.79 mL/m2 [facility] Work Phone: Right atrium volume 4 chamber method of disks 22 mL [facility] Work Phone: RV Area diastolic 21.85 cm2 [facility] Work Phone: RV Area systolic 11.51 cm2 [facility] Work Phone: RV basal diam 3.02 cm [facility] Work Phone: RV Fractional area change 47.3 % [facility] Work Phone: RV long diam 7.35 cm [facility] Work Phone: RV Long Strain -28.0 % [facility] Work Phone: RV mid diam 2.68 cm [facility] Work Phone: RV S' 12.55 cm/s [facility] Work Phone: RVOT peak gradient 1 mmHg [facility] Work Phone: RVOT peak raj 0.59 m/s [facility] Work Phone: Sinus 2.70 cm [facility] Work Phone: STJ 2.41 cm [facility] Work Phone: Stroke Volume 45 cm/mL [facility] Work Phone: Stroke volume index 26 [facility] Work Phone: TAPSE 2.03 cm [facility] Work Phone: [facility] Work Phone: Cardiac echo study [...] ventricular strain) was performed. Imaging system used: [employer]. Indications Indications for study: chest pain, other, tachycardia and shortness of breath - Neuroendocrine tumor, LAMN. Wall Scoring Score Index: 1.00 The left ventricular wall motion is normal. [facility] Radiology Study observation (narrative) [facility] B-TYPE NATRIURETIC PEPTIDE ( BRAIN)on 10-07-2022 Interpretation and review of laboratory results Normal [facility] Natriuretic peptide B (Bld) [Mass/Vol] 4 pg/mL 0 - 100 pg/mL [facility] HIGH SENSITIVITY TROPONIN I - SINGLE ORDERon 10-07-2022 Interpretation and review of laboratory results Normal [facility] Troponin I.cardiac High sensitivity method [Mass/Vol] ng/L NINF - 34 ng/L [facility] MONOon 10-02-2022 Monocytes (Bld) [#/Vol] Negative Normal NEGATIVE [facility] Comment on above: Performed By: #### L IVER, LDH, BMP #### [facility] [address] [place], [place] [address] Dr. Esthela Stevens CBC AUTO DIFFon 09-30-2022 BASO # 0.1 103/ul Normal 0.0-0.1 [facility] Comment on above: Performed By: #### L IVER, LDH, BMP #### [facility] [address] [place], [place] [address] Dr. Esthela Stevens Basophils/100 WBC (Bld) 0.8 % Normal 0.2-2.0 [facility] Comment on above: Performed By: #### L IVER, LDH, BMP #### [facility] [address] [place] [address] Dr. Esthela Stevens EO # 0.1 103/ul Normal 0.0-0.7 [facility] Comment on above: Performed By: #### L IVER, LDH, BMP #### [facility] [address] [place] [address] Dr. Esthela Stevens Eosinophils/100 WBC (Bld) 1.7 % Normal 0.9-7.0 [facility] Comment on above: Performed By: #### L IVER, LDH, BMP #### [facility] [address] [place] [address] Dr. Esthela Stevens Erythrocyte distribution width (RBC) [Ratio] 13.1 % Normal 11.0-15.0 [facility] Comment on above: Performed By: #### L IVER, LDH, BMP #### [facility] [address] [place] [address] Dr. Esthela Stevens Hematocrit (Bld) [Volume fraction] 38.4 % Normal 36.0-48.0 [facility] Comment on above: Performed By: #### L IVER, LDH, BMP #### [facility] [address] [place] [address] Dr. Esthela Stevens Hemoglobin (Bld) [Mass/Vol] 12.4 g/dL Normal 12.0-16.0 [facility] Comment on above: Performed By: #### L IVER, LDH, BMP #### [facility] [address] [place] [address] Dr. Esthela Stevens IG # 0.02 10e3/ul Normal 0.00-0.03 [facility] Comment on above: Performed By: #### L IVER, LDH, BMP #### [facility] [address] [place] [address] Dr. Esthela Stevens IG % 0.3 % Normal 0.0-0.5 [facility] Comment on above: Performed By: #### L IVER, LDH, BMP #### [facility] [address] [place] [address] Dr. Esthela Stevens LYMPH # 2.2 103/ul Normal 1.2-3.8 [facility] Comment on above: Performed By: #### L IVER, LDH, BMP #### [facility] [address] [place] [address] Dr. Esthela Stevens Lymphocytes/100 WBC (Bld) 32.8 % Normal 20.5-60.0 [facility] Comment on above: Performed By: #### L IVER, LDH, BMP #### [facility] [address] [place] [address] Dr. Esthela Stevens MANUAL DIFF REQ NO Normal [facility] Comment on above: Performed By: #### L IVER, LDH, BMP #### [facility] [address] [place] [address] Dr. Esthela Stevens MCH (RBC) [Entitic mass] 27.1 pg Normal 26.7-34.0 [facility] Comment on above: Performed By: #### L IVER, LDH, BMP #### [facility] [address] [place] [address] Dr. Esthela Stevens MCHC (RBC) [Mass/Vol] 32.3 g/dL Normal 29.9-35.2 [facility] Comment on above: Performed By: #### L IVER, LDH, BMP #### [facility] [address] [place] [address] Dr. Esthela Stevens MCV (RBC) [Entitic vol] 83.8 fL Normal 81.0-99.0 [facility] Comment on above: Performed By: #### L IVER, LDH, BMP #### [facility] [address] [place] [address] Dr. Esthela Stevens MONO # 0.5 103/ul Normal 0.3-0.8 [facility] Comment on above: Performed By: #### L IVER, LDH, BMP #### [facility] [address] [place] [address] Dr. Esthela Stevens Monocytes/100 WBC (Bld) 8.0 % Normal 1.7-12.0 [facility] Comment on above: Performed By: #### L IVER, LDH, BMP #### [facility] [address] [place] [address] Dr. Esthela Stevens NEUT # 3.7 103/ul Normal 1.4-6.5 [facility] Comment on above: Performed By: #### L IVER, LDH, BMP #### [facility] [address] [place] [address] Dr. Esthela Stevens Neutrophils/100 WBC (Bld) 56.4 % Normal 43.0-75.0 [facility] Comment on above: Performed By: #### L IVER, LDH, BMP #### [facility] [address] [place] [address] Dr. Esthela Stevens Platelet mean volume (Bld) [Entitic vol] 9.3 fL Critically low 9.5-13.5 [facility] Comment on above: Performed By: #### L IVER, LDH, BMP #### [facility] [address] [place] [address] Dr. Esthela Stevens PLT 334 103/ul Normal 150-450 [facility] Comment on above: Performed By: #### L IVER, LDH, BMP #### [facility] [address] [place] [address] Dr. Esthela Stevens RBC 4.58 106/ul Normal 4.20-5.40 [facility] Comment on above: Performed By: #### L IVER, LDH, BMP #### [facility] [address] [place] [address] Dr. Esthela Stevens WBC 6.6 103/ul Normal 4.0-11.0 [facility] Comment on above: Performed By: #### L IVER, LDH, BMP #### [facility] [address] [place] [address] Dr. Esthela Stevens LDHon 09-30-2022 LDH 122 U/L Normal 81-234 [facility] Comment on above: Performed By: #### L IVER, LDH, BMP #### [facility] [address] [address] [address] Esthela Stevens LIVER PROFILEon 09-30-2022 Albumin [Mass/Vol] 4.1 g/dL Normal 3.4-5.0 [facility] Comment on above: Performed By: #### L IVER, LDH, BMP #### [facility] [address] [address] [address] Esthela Stevens Albumin/Globulin [Mass ratio] 1.2 {ratio} Normal [facility] Comment on above: Performed By: #### L IVER, LDH, BMP #### [facility] [address] [address] [address] Esthela Stevens ALP [Catalytic activity/Vol] 75 U/L Normal 46-116 [facility] Comment on above: Performed By: #### L IVER, LDH, BMP #### [facility] [address] [place] [address] Dr. Esthela Stevens ALT [Catalytic activity/Vol] 41 U/L Normal 14-59 [facility] Comment on above: Performed By: #### L IVER, LDH, BMP #### [facility] [address] [address] [address] Esthela Stevens AST [Catalytic activity/Vol] 30 U/L Normal 15-37 [facility] Comment on above: Performed By: #### L IVER, LDH, BMP #### [facility] [address] [address] [address] Esthela Stevens BILI, CONJUGATED 0.1 mg/dL Normal 0.0-0.2 [facility] Comment on above: Performed By: #### L IVER, LDH, BMP #### [facility] [address] [address] [address] Esthela Stevens Bilirubin [Mass/Vol] 0.5 mg/dL Normal 0.2-1.0 [facility] Comment on above: Performed By: #### L IVER, LDH, BMP #### [facility] [address] [address] [address] Esthela Stevens Globulin (S) [Mass/Vol] 3.3 g/dL Normal [facility] Comment on above: Performed By: #### L IVER, LDH, BMP #### [facility] [address] [address] [address] Esthela Stevens Protein [Mass/Vol] 7.4 g/dL Normal 6.4-8.2 [facility] Comment on above: Performed By: #### L IVER, LDH, BMP #### [facility] [address] [place] [address] Dr. Esthela Stevens PROF CHEM 8 (BAS METB)on Anion gap [Moles/Vol] 9.2 mmol/L Normal [facility] Comment on above: Performed By: #### L IVER, LDH, BMP #### [facility] [address] [place] [address] Dr. Esthela Stevens Calcium [Mass/Vol] 9.0 mg/dL Normal 8.5-10.1 [facility] Comment on above: Performed By: #### L IVER, LDH, BMP #### [facility] [address] [place] [address] Dr. Esthela Stevens Chloride [Moles/Vol] 102 mmol/L Normal 98-107 [facility] Comment on above: Performed By: #### L IVER, LDH, BMP #### [facility] [address] [place] [address] Dr. Esthela Stevens CO2 [Moles/Vol] 27.8 mmol/L Normal 21.0-32.0 [facility] Comment on above: Performed By: #### L IVER, LDH, BMP #### [facility] [address] [place] [address] Dr. Esthela Stevens Creatinine [Mass/Vol] 0.63 mg/dL Normal 0.55-1.02 [facility] Comment on above: Performed By: #### L IVER, LDH, BMP #### [facility] [address] [place] [address] Dr. Esthela Stevens EGFR-AF BENINESE >60 Normal >=60 [facility] Comment on above: Performed By: #### L IVER, LDH, BMP #### [facility] [address] [address] [address] Esthela Stevens EGFR-NON AF BENINESE >60 Normal >=60 [facility] Comment on above: Performed By: #### L IVER, LDH, BMP #### [facility] [address] [address] [address] Esthela Stevens Glucose [Mass/Vol] 106 mg/dL Normal 74-106 [facility] Comment on above: Performed By: #### L IVER, LDH, BMP #### [facility] [address] [address] [address] Esthela Stevens Potassium [Moles/Vol] 4.0 mmol/L Normal 3.5-5.1 [facility] Comment on above: Performed By: #### L IVER, LDH, BMP #### [facility] [address] [address] [address] Esthela Stevens Sodium [Moles/Vol] 135 mmol/L Critically low 136-145 [facility] Comment on above: Performed By: #### L IVER, LDH, BMP #### [facility] [address] [address] [address] Esthela Stevens Urea nitrogen [Mass/Vol] 9.0 mg/dL Normal 7.0-18.0 [facility] Comment on above: Performed By: #### L IVER, LDH, BMP #### [facility] [address] [place] [address] Dr. Esthela Stevens Urea nitrogen/Creatinine [Mass ratio] 14.3 mg/mg Normal [facility] Comment on above: Performed By: #### L IVER, LDH, BMP #### [facility] [address] [place] [address] Dr. Esthela Stevens MG MAMM DIAGNOSTIC 3D EFREN CA Don 09-23-2022 MG MAMM DIAGNOSTIC 3D EFREN CAD Patient: ZAINAB SWIFT Exam Date: 09/23/2022 : 1995 Gender:F Ordering : ERIN SAMS [facility] Admission #: [id number] Family : Order #: [id number] CLICK HERE TO VIEW EXAM RADIOLOGY REPORT [...] cervical cancer at age 42. LOCATION: [facility] BREAST COMPOSITION: Extremely dense, which lowers [...] M.D. on 09/23/2022 at 11:31 Normal [facility] US BREAST EFREN LIMITEDon 03-0 US BREAST EFREN LIMITED Patient: ZAINAB SWIFT Exam Date: 09/23/2022 : 1995 Gender:F Ordering : ERIN SAMS [facility] Admission #: [id number] Family : Order #: [id number] CLICK HERE TO VIEW EXAM RADIOLOGY REPORT [...] cervical cancer at age 42. LOCATION: [facility] BREAST COMPOSITION: Extremely dense, which lowers [...] M.D. on 09/23/2022 at 11:31 Normal [facility]20 SARS-CoV-2 (COVID-19) RNA JORGE LUIS+probe Ql (Unsp spec) Not detected Normal NOT DETECTED [facility] Comment on above: Result Comment: When [...] for this test is supported by the [place] of Health and Human Service's declaration that [...] used). Performed By: #### P REG #### [facility] [address] [place] [address] Dr. Esthela Stevens INFLUENZA A AND B AGon 09-15 [facility] SEE BELOW Normal [facility] Comment on above: Result Comment: Nega tive for Flu A protein angiten. Infection due to Flu A cannot be ruled out. Flu A angiten in the sample may be below the detection limit of the test. Performed By: #### L IVER, LDH, BMP #### [facility] [address] [place] [address] Dr. Esthela Stevens [facility] SEE BELOW Normal [facility] Comment on above: Result Comment: Nega tive for Flu B protein antigen. Infection due to Flu B cannot be ruled out. Flu B antigen in the sample may be below the detection limit of the test. Performed By: #### L IVER, LDH, BMP #### [facility] [address] [place] [address] Dr. Esthela Stevens INFLUENZA A AG Negative Normal NEGATIVE SEE COMMENT [facility] Comment on above: Performed By: #### L IVER, LDH, BMP #### [facility] [address] [place] [address] Dr. Esthela Stevens INFLUENZA B AG Negative Normal NEGATIVE SEE COMMENT [facility] Comment on above: Performed By: #### L IVER, LDH, BMP #### [facility] [address] [place] [address] Dr. Esthela Stevens HUNTER by IFAon 09-04-2022 Antinuclear Antibodies, IFA Positive Abnormal [facility] Comment on above: Result Comment: Nega tive <1:80 Borderline 1:80 Positive >1:80 Performed By: #### P REG #### [facility] [address] [place] [address] Dr. Esthela Stevens Centriole Pattern Normal [facility] Comment on above: Performed By: #### P REG #### [facility] [address] [place] [address] Dr. Esthela Stevens Centromere Pattern Normal [facility] Comment on above: Performed By: #### P REG #### [facility] [address] [place] [address] Dr. Esthela Stevens Homogeneous Pattern 1:160 Critically high [facility] Comment on above: Result Comment: ICAP nomenclature: AC-1 Performed By: #### P REG #### [facility] [address] [address] [address] Esthela Stevens Midbody Pattern Normal [facility] Comment on above: Performed By: #### P REG #### [facility] [address] [place], [place] [address] Dr. Esthela Stevens Note: Comment Normal [facility] Comment on above: Result Comment: For [...] titers Nucleosomes, Histones Drug-induced SLE Speckled Sm, MANAGER WHOLESALE, SCL-70, SLE,MCTD,PSS (diffuse form), SS-A/SS-B Sjogrens Nucleolar SCL-70, PM-1/SCL High titers Scleroderma, PM/DM Centromere Centromere PSS (limited form) w/Crest syndrome variable Nuclear Dot [id number] Primary Biliary Cirrhosis Nuclear GP210, Primary Biliary Cirrhosis Membrane italia A,B,C Performed By: #### P REG #### [facility] [address] [place] [address] Dr. Esthela Stevens Nuclear Dot Pattern Normal [facility] Comment on above: Performed By: #### P REG #### [facility] [address] [place] [address] Dr. Esthela Stevens Nuclear Membrane Pattern Normal [facility] Comment on above: Performed By: #### P REG #### [facility] [address] [address] [address] Esthela Stevens Nucleolar Pattern Normal [facility] Comment on above: Performed By: #### P REG #### [facility] [address] [address] [address] Esthela Stevens PCNA Pattern Normal [facility] Comment on above: Performed By: #### P REG #### [facility] [address] [place] [address] Dr. Esthela Stevens Speckled Pattern Normal [facility] Comment on above: Performed By: #### P REG #### [facility] [address] [place] [address] Dr. Esthela Stevens Spindle Apparatus Pattern Normal [facility] Comment on above: Performed By: #### P REG #### [facility] [address] [place] [address] Dr. Esthela Stevens ANTISTREPTOLYSIN O AB (ASO)o n 09-01-2022 Antistreptolysin O Ab 58.8 IU/mL Normal 0.0-200.0 [facility] Comment on above: Performed By: #### L IVER, LDH, BMP #### [facility] [address] [place] [address] Dr. Esthela Stevens INSULINon 09-01-2022 Insulin 12.2 uIU/mL Normal 2.6-24.9 [facility] Comment on above: Performed By: #### I NSULIN #### [facility] [address] [place] [address] Dr. Esthela Stevens RHEUMATOID FACTORon 09-01-19 RA Latex Turbid. <10.0 Normal <14.0 [facility] Comment on above: Performed By: #### L IVER, LDH, BMP #### [facility] [address] [place] [address] Dr. Esthela Stevens CBC AUTO DIFFon 08-31-2022 BASO # 0.0 103/ul Normal 0.0-0.1 [facility] Comment on above: Performed By: #### P REG #### [facility] [address] [place] [address] Dr. Esthela Stevens Basophils/100 WBC (Bld) 0.6 % Normal 0.2-2.0 [facility] Comment on above: Performed By: #### P REG #### [facility] [address] [place] [address] Dr. Esthela Stevens EO # 0.1 103/ul Normal 0.0-0.7 [facility] Comment on above: Performed By: #### P REG #### [facility] [address] [place] [address] Dr. Esthela Stevens Eosinophils/100 WBC (Bld) 1.5 % Normal 0.9-7.0 [facility] Comment on above: Performed By: #### P REG #### [facility] [address] [place] [address] Dr. Esthela Stevens Erythrocyte distribution width (RBC) [Ratio] 12.7 % Normal 11.0-15.0 [facility] Comment on above: Performed By: #### P REG #### [facility] [address] [place] [address] Dr. Esthela Stevens Hematocrit (Bld) [Volume fraction] 38.4 % Normal 36.0-48.0 [facility] Comment on above: Performed By: #### P REG #### [facility] [address] [place] [address] Dr. Esthela Stevens Hemoglobin (Bld) [Mass/Vol] 12.7 g/dL Normal 12.0-16.0 [facility] Comment on above: Performed By: #### P REG #### [facility] [address] [place] [address] Dr. Esthela Stevens IG # 0.02 10e3/ul Normal 0.00-0.03 [facility] Comment on above: Performed By: #### P REG #### [facility] [address] [place] [address] Dr. Esthela Stevens IG % 0.3 % Normal 0.0-0.5 [facility] Comment on above: Performed By: #### P REG #### [facility] [address] [place] [address] Dr. Esthela Stevens LYMPH # 2.0 103/ul Normal 1.2-3.8 [facility] Comment on above: Performed By: #### P REG #### [facility] [address] [place] [address] Dr. Esthela Stevens Lymphocytes/100 WBC (Bld) 31.2 % Normal 20.5-60.0 [facility] Comment on above: Performed By: #### P REG #### [facility] [address] [place] [address] Dr. Esthela Stevens MANUAL DIFF REQ NO Normal [facility] Comment on above: Performed By: #### P REG #### [facility] [address] [address] [address] Esthela Stevens MCH (RBC) [Entitic mass] 27.1 pg Normal 26.7-34.0 [facility] Comment on above: Performed By: #### P REG #### [facility] [address] [place] [address] Dr. Esthela Stevens MCHC (RBC) [Mass/Vol] 33.1 g/dL Normal 29.9-35.2 [facility] Comment on above: Performed By: #### P REG #### [facility] [address] [place] [address] Dr. Esthela Stevens MCV (RBC) [Entitic vol] 82.1 fL Normal 81.0-99.0 [facility] Comment on above: Performed By: #### P REG #### [facility] [address] [place] [address] Dr. Esthela Stevens MONO # 0.4 103/ul Normal 0.3-0.8 [facility] Comment on above: Performed By: #### P REG #### [facility] [address] [place] [address] Dr. Esthela Stevens Monocytes/100 WBC (Bld) 6.4 % Normal 1.7-12.0 [facility] Comment on above: Performed By: #### P REG #### [facility] [address] [place] [address] Dr. Esthela Stevens NEUT # 3.9 103/ul Normal 1.4-6.5 [facility] Comment on above: Performed By: #### P REG #### [facility] [address] [place] [address] Dr. Esthela Stevens Neutrophils/100 WBC (Bld) 60.0 % Normal 43.0-75.0 [facility] Comment on above: Performed By: #### P REG #### [facility] [address] [place] [address] Dr. Esthela Stevens Platelet mean volume (Bld) [Entitic vol] 9.2 fL Critically low 9.5-13.5 [facility] Comment on above: Performed By: #### P REG #### [facility] [address] [address] [address] Esthela Stevens PLT 390 103/ul Normal 150-450 [facility] Comment on above: Performed By: #### P REG #### [facility] [address] [address] [address] Esthela Stevens RBC 4.68 106/ul Normal 4.20-5.40 [facility] Comment on above: Performed By: #### P REG #### [facility] [address] [place] [address] Dr. Esthela Stevens WBC 6.5 103/ul Normal 4.0-11.0 [facility] Comment on above: Performed By: #### P REG #### [facility] [address] [place] [address] Dr. Esthela Stevens CRPon 08-31-2022 CRP [Mass/Vol] mg/L Normal <=1.0 [facility] Comment on above: Performed By: #### L IVER, LDH, BMP #### [facility] [address] [place] [address] Dr. Esthela Stevens FREE THYROXINE INDEX T7on FTI 2.94 Normal 1.30-4.50 [facility] Comment on above: Performed By: #### L IVER, LDH, BMP #### [facility] [address] [place] [address] Dr. Esthela Stevens T3U 33.0 % Normal 30.0-39.0 [facility] Comment on above: Performed By: #### L IVER, LDH, BMP #### [facility] [address] [place] [address] Dr. Esthela Stevens T4 [Mass/Vol] 8.90 ug/dL Normal 4.80-13.[address] [facility] Comment on above: Performed By: #### L IVER, LDH, BMP #### [facility] [address] [place] [address] Dr. Esthela Stevens GLYCOHEMOGLOBIN A1Con 2022 ADA RECOMMENDATION SEE BELOW Normal [facility] Comment on above: Result Comment: ADA RECOMMENDED LIMIT 4.0 - 6.0 ADA THERAPEUTIC TARGET < 7.0 ACTION SUGGESTED > 7.0 Performed By: #### L IVER, LDH, BMP #### [facility] [address] [address] [address] Esthela Stevens Glucose [Mass/Vol] 111 mg/dL Normal [facility] Comment on above: Performed By: #### L IVER, LDH, BMP #### [facility] [address] [address] [address] Esthela Stevens HbA1c (Bld) [Mass fraction] 5.5 % Normal 4.5-6.2 [facility] Comment on above: Performed By: #### L IVER, LDH, BMP #### [facility] [address] [place] [address] Dr. Esthela Stevens IRONon 08-31-2022 Iron [Mass/Vol] 34.0 ug/dL Critically low 50.0-170.0 [facility] Comment on above: Performed By: #### L IVER, LDH, BMP #### [facility] [address] [place] [address] Dr. Esthela Stevens LIPID PROFILEon 08-31-2022 CHOL-HDL RATIO NORM SEE BELOW Normal [facility] Comment on above: Result Comment: 3.3 - 4.4 LOW RISK 4.4 - 7.1 AVERAGE RISK 7.1 - 11.0 MODERATE RISK >11.0 HIGH RISK Performed By: #### L IVER, LDH, BMP #### [facility] [address] [address] [address] Esthela Stevens Cholesterol [Mass/Vol] 168 mg/dL Normal <=200 [facility] Comment on above: Performed By: #### L IVER, LDH, BMP #### [facility] [address] [place] [address] Dr. Esthela Stevens Cholesterol in HDL [Mass/Vol] 51 mg/dL Normal 40-60 [facility] Comment on above: Performed By: #### L IVER, LDH, BMP #### [facility] [address] [place] [address] Dr. Esthela Stevens Cholesterol in LDL [Mass/Vol] 91.8 mg/dL Normal [facility] Comment on above: Performed By: #### L IVER, LDH, BMP #### [facility] [address] [address] [address] Esthela Stevens Cholesterol.total/Ch olesterol in HDL [Mass ratio] 3.3 {ratio} Normal [facility] Comment on above: Performed By: #### L IVER, LDH, BMP #### [facility] [address] [address] [address] Esthela Stevens HDL NORMAL > or = 60 mg/dl - LOW CARDIOVASCULAR RISK <40 mg/dl - HIGH CARDIOVASCULAR RISK Normal [facility] Comment on above: Performed By: #### L IVER, LDH, BMP #### [facility] [address] [address] [address] Esthela Stevens LDL CALC NORMAL SEE BELOW Normal [facility] Comment on above: Result Comment: <100 mg/dl OPTIMAL 100 - 129 mg/dl NEAR OR ABOVE OPTIMAL 130 - 159 mg/dl BORDERLINE HIGH 160 - 189 mg/dl HIGH >190 mg/dl VERY HIGH Performed By: #### L IVER, LDH, BMP #### [facility] [address] [address] [address] Esthela Stevens Triglyceride [Mass/Vol] 126 mg/dL Normal <=150 [facility] Comment on above: Performed By: #### L IVER, LDH, BMP #### [facility] [address] [address] [address] Esthela Stevens VLDL CALC 25.2 mg/dL Normal [facility] Comment on above: Performed By: #### L IVER, LDH, BMP #### [facility] [address] [address] [address] Esthela Stevens PROF 14(COMP METB)on 023 Albumin [Mass/Vol] 4.2 g/dL Normal 3.4-5.0 [facility] Comment on above: Performed By: #### L IVER, LDH, BMP #### [facility] [address] [place] [address] Dr. Esthela Stevens Albumin/Globulin [Mass ratio] 1.1 {ratio} Normal [facility] Comment on above: Performed By: #### L IVER, LDH, BMP #### [facility] [address] [address] [address] Esthela Stevens ALP [Catalytic activity/Vol] 74 U/L Normal 46-116 [facility] Comment on above: Performed By: #### L IVER, LDH, BMP #### [facility] [address] [address] [address] Esthela Stevens ALT [Catalytic activity/Vol] 57 U/L Normal 14-59 [facility] Comment on above: Performed By: #### L IVER, LDH, BMP #### [facility] [address] [place] [address] Dr. Esthela Stevens Anion gap [Moles/Vol] 15.0 mmol/L Normal [facility] Comment on above: Performed By: #### L IVER, LDH, BMP #### [facility] [address] [place] [address] Dr. Esthela Stevens AST [Catalytic activity/Vol] 25 U/L Normal 15-37 [facility] Comment on above: Performed By: #### L IVER, LDH, BMP #### [facility] [address] [place] [address] Dr. Esthela Stevens Bilirubin [Mass/Vol] 0.4 mg/dL Normal 0.2-1.0 [facility] Comment on above: Performed By: #### L IVER, LDH, BMP #### [facility] [address] [place] [address] Dr. Esthela Stevens Calcium [Mass/Vol] 9.4 mg/dL Normal 8.5-10.1 [facility] Comment on above: Performed By: #### L IVER, LDH, BMP #### [facility] [address] [place] [address] Dr. Esthela Stevens Chloride [Moles/Vol] 102 mmol/L Normal 98-107 [facility] Comment on above: Performed By: #### L IVER, LDH, BMP #### [facility] [address] [address] [address] Esthela Stevens CO2 [Moles/Vol] 27.0 mmol/L Normal 21.0-32.0 [facility] Comment on above: Performed By: #### L IVER, LDH, BMP #### [facility] [address] [address] [address] Esthela Stevens Creatinine [Mass/Vol] 0.61 mg/dL Normal 0.55-1.02 [facility] Comment on above: Performed By: #### L IVER, LDH, BMP #### [facility] [address] [address] [address] Esthela Stevens EGFR-AF BENINESE >60 Normal >=60 [facility] Comment on above: Performed By: #### L IVER, LDH, BMP #### [facility] [address] [place] [address] Dr. Esthela Stevens EGFR-NON AF BENINESE >60 Normal >=60 [facility] Comment on above: Performed By: #### L IVER, LDH, BMP #### [facility] [address] [address] [address] Esthela Stevens Globulin (S) [Mass/Vol] 3.7 g/dL Normal [facility] Comment on above: Performed By: #### L IVER, LDH, BMP #### [facility] [address] [address] [address] Esthela Stevens Glucose [Mass/Vol] 88 mg/dL Normal 74-106 [facility] Comment on above: Performed By: #### L IVER, LDH, BMP #### [facility] [address] [address] [address] Esthela Stevens Potassium [Moles/Vol] 4.0 mmol/L Normal 3.5-5.1 [facility] Comment on above: Performed By: #### L IVER, LDH, BMP #### [facility] [address] [address] [address] Esthela Stevens Protein [Mass/Vol] 7.9 g/dL Normal 6.4-8.2 [facility] Comment on above: Performed By: #### L IVER, LDH, BMP #### [facility] [address] [place] [address] Dr. Esthela Stevens Sodium [Moles/Vol] 140 mmol/L Normal 136-145 [facility] Comment on above: Performed By: #### L IVER, LDH, BMP #### [facility] [address] [place] [address] Dr. Esthela Stevens Urea nitrogen [Mass/Vol] 4.0 mg/dL Critically low 7.0-18.0 [facility] Comment on above: Performed By: #### L IVER, LDH, BMP #### [facility] [address] [place] [address] Dr. Esthela Stevens Urea nitrogen/Creatinine [Mass ratio] 6.6 mg/mg Normal [facility] Comment on above: Performed By: #### L IVER, LDH, BMP #### [facility] [address] [place] [address] Dr. Esthela Stevens TSHon 08-31-2022 TSH 1.348 uIU/mL Normal 0.358-3.[address] [facility] Comment on above: Performed By: #### L IVER, LDH, BMP #### [facility] [address] [place] [address] Dr. Esthela Stevens URIC ACID SERUMon 08-31-2022 Urate [Mass/Vol] 4.4 mg/dL Normal 2.6-6.0 [facility] Comment on above: Performed By: #### L IVER, LDH, BMP #### [facility] [address] [place] [address] Dr. Esthela Stevens VITAMIN D 25 OHon 08-31-2022 VIT D 25-OH 18.0 ng/mL Normal [facility] Comment on above: Performed By: #### L IVER, LDH, BMP #### [facility] [address] [place] [address] Dr. Esthela Stevens VIT D RANGES SEE BELOW Normal [facility] Comment on above: Result Comment: <20 ng/mL Vit D deficient 20 - <30 ng/mL Vit D insufficient 30 - 100 ng/mL Vit D sufficient >100 ng/mL Potential Toxicity Performed By: #### L IVER, LDH, BMP #### [facility] [address] [address] [address] Esthela Stevens LIVER PROFILEon 08-24-2022 Albumin [Mass/Vol] 3.9 g/dL Normal 3.4-5.0 [facility] Comment on above: Performed By: #### L IVER, LDH, BMP #### [facility] [address] [address] [address] Esthela Stevens Albumin/Globulin [Mass ratio] 1.0 {ratio} Normal [facility] Comment on above: Performed By: #### L IVER, LDH, BMP #### [facility] [address] [place] [address] Dr. Esthela Stevens ALP [Catalytic activity/Vol] 70 U/L Normal 46-116 [facility] Comment on above: Performed By: #### L IVER, LDH, BMP #### [facility] [address] [place] [address] Dr. Esthela Stevens ALT [Catalytic activity/Vol] 44 U/L Normal 14-59 [facility] Comment on above: Performed By: #### L IVER, LDH, BMP #### [facility] [address] [place] [address] Dr. Esthela Stevens AST [Catalytic activity/Vol] 22 U/L Normal 15-37 [facility] Comment on above: Performed By: #### L IVER, LDH, BMP #### [facility] [address] [place] [address] Dr. Esthela Stevens BILI, CONJUGATED 0.1 mg/dL Normal 0.0-0.2 [facility] Comment on above: Performed By: #### L IVER, LDH, BMP #### [facility] [address] [place] [address] Dr. Esthela Stevens Bilirubin [Mass/Vol] 0.3 mg/dL Normal 0.2-1.0 [facility] Comment on above: Performed By: #### L IVER, LDH, BMP #### [facility] [address] [place], [place] [id number] Dr. Esthela Stevens Globulin (S) [Mass/Vol] 3.9 g/dL Normal [facility] Comment on above: Performed By: #### L IVER, LDH, BMP #### [facility] [address] [address] [address] Esthela Stevens Protein [Mass/Vol] 7.8 g/dL Normal 6.4-8.2 [facility] Comment on above: Performed By: #### L IVER, LDH, BMP #### [facility] [address] [address] [address] Esthela Stevens CREAT/GFRon 08-19-2022 Creatinine [Mass/Vol] 0.85 mg/dL 0.50 - 1.20 mg/dL [facility] GFR/1.73 sq M.predicted CKD-EPI (S/P/Bld) [Vol rate/Area] - PINF [facility] Comment on above: Reported eGFR is bas ed on the CKD-EPI 2020 equation using creatinine, age, and sex. Interpretation and review of laboratory results Normal [facility] Test performed at address of the patient encounter. [facility] PT Skull base to mid-thighon 08-19-2022 [...] the patient was positioned on the Siemens Compassgraph mCT TOF< PET/CT-64, Tera imaging unit. 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 [facility] Radiology Study observation (narrative) [facility] PT Skull base to mid-thighOr dered By: Hawa Pichardo on 08-19-2022 [facility] Work Phone: CBC AUTO DIFFon 08-12-2022 BASO # 0.1 103/ul Normal 0.0-0.1 [facility] Comment on above: Performed By: #### L IVER, LDH, BMP #### [facility] [address] [place] [address] Dr. Esthela Stevens Basophils/100 WBC (Bld) 1.0 % Normal 0.2-2.0 [facility] Comment on above: Performed By: #### L IVER, LDH, BMP #### [facility] [address] [place] [address] Dr. Esthela Stevens EO # 0.1 103/ul Normal 0.0-0.7 [facility] Comment on above: Performed By: #### L IVER, LDH, BMP #### [facility] [address] [place] [address] Dr. Esthela Stevens Eosinophils/100 WBC (Bld) 1.6 % Normal 0.9-7.0 [facility] Comment on above: Performed By: #### L IVER, LDH, BMP #### [facility] [address] [place] [address] Dr. Esthela Stevens Erythrocyte distribution width (RBC) [Ratio] 12.5 % Normal 11.0-15.0 [facility] Comment on above: Performed By: #### L IVER, LDH, BMP #### [facility] [address] [place] [address] Dr. Esthela Stevens Hematocrit (Bld) [Volume fraction] 40.1 % Normal 36.0-48.0 [facility] Comment on above: Performed By: #### L IVER, LDH, BMP #### [facility] [address] [place] [address] Dr. Esthela Stevens Hemoglobin (Bld) [Mass/Vol] 12.3 g/dL Normal 12.0-16.0 [facility] Comment on above: Performed By: #### L IVER, LDH, BMP #### [facility] [address] [place] [address] Dr. Esthela Stevens IG # 0.01 10e3/ul Normal 0.00-0.03 [facility] Comment on above: Performed By: #### L IVER, LDH, BMP #### [facility] [address] [place] [address] Dr. Esthela Stevens IG % 0.2 % Normal 0.0-0.5 [facility] Comment on above: Performed By: #### L IVER, LDH, BMP #### [facility] [address] [place] [address] Dr. Esthela Stevens LYMPH # 1.8 103/ul Normal 1.2-3.8 [facility] Comment on above: Performed By: #### L IVER, LDH, BMP #### [facility] [address] [place] [address] Dr. Esthela Stevens Lymphocytes/100 WBC (Bld) 28.0 % Normal 20.5-60.0 [facility] Comment on above: Performed By: #### L IVER, LDH, BMP #### [facility] [address] [place] [address] Dr. Esthela Stevens MANUAL DIFF REQ NO Normal [facility] Comment on above: Performed By: #### L IVER, LDH, BMP #### [facility] [address] [place] [address] Dr. Esthela Stevens MCH (RBC) [Entitic mass] 26.8 pg Normal 26.7-34.0 [facility] Comment on above: Performed By: #### L IVER, LDH, BMP #### [facility] [address] [place] [address] Dr. Esthela Stevens MCHC (RBC) [Mass/Vol] 30.7 g/dL Normal 29.9-35.2 [facility] Comment on above: Performed By: #### L IVER, LDH, BMP #### [facility] [address] [place] [address] Dr. Esthela Stevens MCV (RBC) [Entitic vol] 87.4 fL Normal 81.0-99.0 [facility] Comment on above: Performed By: #### L IVER, LDH, BMP #### [facility] [address] [place] [address] Dr. Esthela Stevens MONO # 0.6 103/ul Normal 0.3-0.8 [facility] Comment on above: Performed By: #### L IVER, LDH, BMP #### [facility] [address] [place] [address] Dr. Esthela Stevens Monocytes/100 WBC (Bld) 9.4 % Normal 1.7-12.0 [facility] Comment on above: Performed By: #### L IVER, LDH, BMP #### [facility] [address] [place] [address] Dr. Esthela Stevens NEUT # 3.8 103/ul Normal 1.4-6.5 [facility] Comment on above: Performed By: #### L IVER, LDH, BMP #### [facility] [address] [place] [address] Dr. Esthela Stevens Neutrophils/100 WBC (Bld) 59.8 % Normal 43.0-75.0 [facility] Comment on above: Performed By: #### L IVER, LDH, BMP #### [facility] [address] [place] [address] Dr. Esthela Stevens Platelet mean volume (Bld) [Entitic vol] 9.6 fL Normal 9.5-13.5 [facility] Comment on above: Performed By: #### L IVER, LDH, BMP #### [facility] [address] [place] [address] Dr. Esthela Stevens PLT 341 103/ul Normal 150-450 [facility] Comment on above: Performed By: #### L IVER, LDH, BMP #### [facility] [address] [place] [address] Dr. Esthela Stevens RBC 4.59 106/ul Normal 4.20-5.40 [facility] Comment on above: Performed By: #### L IVER, LDH, BMP #### [facility] [address] [place] [address] Dr. Esthela Stevens WBC 6.3 103/ul Normal 4.0-11.0 [facility] Comment on above: Performed By: #### L IVER, LDH, BMP #### [facility] [address] [place] [address] ABD/PELV W CONon [...] TIMMY SHAY Date: 2022-08-12 17:04 Normal [facility] CULTURE URINEon 08-12-2022 CULTURE URINE Culture Observations: MODERATE GROWTH OF MIXED GENITAL SUNITA. NO POTENTIAL PATHOGENS SEEN. Normal [facility] Comment on above: Performed By: #### L IVER, LDH, BMP #### [facility] [address] [place] [address] Dr. Esthela Stevens ER URINE PROFILEon 3 Bilirubin Ql (U) Negative Normal NEGATIVE [facility] Comment on above: Performed By: #### P REG #### [facility] [address] [place] [address] Dr. Esthela Stevens Clarity (U) CLEAR Normal CLEAR [facility] Comment on above: Performed By: #### P REG #### [facility] [address] [place] [address] Dr. Esthela Stevens Color (U) LT. YELLOW Normal YELLOW [facility] Comment on above: Performed By: #### P REG #### [facility] [address] [place] [address] Dr. Esthela LOZAAHBenji A micrscopic examination will be performed if indicated. Normal [facility] Comment on above: Performed By: #### P REG #### [facility] [address] [place] [address] Dr. Esthela Stevens Glucose Ql (U) Negative Normal NEGATIVE [facility] Comment on above: Performed By: #### P REG #### [facility] [address] [place] [address] Dr. Esthela Stevens Hemoglobin Ql (U) Negative Normal NEGATIVE [facility] Comment on above: Performed By: #### P REG #### [facility] [address] [place] [address] Dr. Esthela Stevens Ketones Ql (U) Negative Normal NEGATIVE [facility] Comment on above: Performed By: #### P REG #### [facility] [address] [place] [address] Dr. Esthela Stevens LEUKOCYTES SMALL Abnormal NEGATIVE [facility] Comment on above: Performed By: #### P REG #### [facility] [address] [place] [address] Dr. Esthela Stevens Nitrite Ql (U) Negative Normal NEGATIVE [facility] Comment on above: Performed By: #### P REG #### [facility] [address] [place] [address] Dr. Esthela Stevens pH (U) 7.0 [pH] Normal 5-9 [facility] Comment on above: Performed By: #### P REG #### [facility] [address] [place] [address] Dr. Esthela Stevens SPEC GRAVITY 1.020 Normal 1.005-<=1.025 [facility] Comment on above: Performed By: #### P REG #### [facility] [address] [place] [address] Dr. Esthela Stevens UA PROTEIN Negative Normal NEGATIVE/ TRACE [facility] Comment on above: Performed By: #### P REG #### [facility] [address] [place] [address] Dr. Esthela Stevens UR MICRO IND INDICATED Normal [facility] Comment on above: Performed By: #### P REG #### [facility] [address] [place] [address] Dr. Esthela Stevens Urobilinogen Qn (U) 0.2 {Emeka'U}/dL Normal 0.2 - 1. 0 [facility] Comment on above: Performed By: #### P REG #### [facility] [address] [place] [address] Dr. Esthela Stevens LIPASEon 08-12-2022 Lipase [Catalytic activity/Vol] 75.0 U/L Normal 73.0-393.0 [facility] Comment on above: Performed By: #### P REG #### [facility] [address] [place] [address] Dr. Esthela Stevens URon 08-12-2022 , QUAL Negative Normal NEGATIVE [facility] Comment on above: Performed By: #### P REG #### [facility] [address] [place] [address] Dr. Esthela Stevens PROF 14(COMP METB)on 023 Albumin [Mass/Vol] 4.0 g/dL Normal 3.4-5.0 [facility] Comment on above: Performed By: #### P REG #### [facility] [address] [place] [address] Dr. Esthela Stevens Albumin/Globulin [Mass ratio] 1.1 {ratio} Normal [facility] Comment on above: Performed By: #### P REG #### [facility] [address] [place] [address] Dr. Esthela Stevens ALP [Catalytic activity/Vol] 73 U/L Normal 46-116 [facility] Comment on above: Performed By: #### P REG #### [facility] [address] [place] [address] Dr. Esthela Stevens ALT [Catalytic activity/Vol] 82 U/L Critically high 14-59 [facility] Comment on above: Performed By: #### P REG #### [facility] [address] [place] [address] Dr. Esthela Stevens Anion gap [Moles/Vol] 12.0 mmol/L Normal [facility] Comment on above: Performed By: #### P REG #### [facility] [address] [place] [address] Dr. Esthela Stevens AST [Catalytic activity/Vol] 33 U/L Normal 15-37 [facility] Comment on above: Performed By: #### P REG #### [facility] [address] [place] [address] Dr. Esthela Stevens Bilirubin [Mass/Vol] 0.2 mg/dL Normal 0.2-1.0 [facility] Comment on above: Performed By: #### P REG #### [facility] [address] [place] [address] Dr. Esthela Stevens Calcium [Mass/Vol] 9.4 mg/dL Normal 8.5-10.1 [facility] Comment on above: Performed By: #### P REG #### [facility] [address] [place] [address] Dr. Esthela Stevens Chloride [Moles/Vol] 102 mmol/L Normal 98-107 [facility] Comment on above: Performed By: #### P REG #### [facility] [address] [place] [address] Dr. Esthela Stevens CO2 [Moles/Vol] 27.8 mmol/L Normal 21.0-32.0 [facility] Comment on above: Performed By: #### P REG #### [facility] [address] [address] [address] Esthela Stevens Creatinine [Mass/Vol] 0.69 mg/dL Normal 0.55-1.02 [facility] Comment on above: Performed By: #### P REG #### [facility] [address] [address] [address] Esthela Stevens EGFR-AF BENINESE >60 Normal >=60 [facility] Comment on above: Performed By: #### P REG #### [facility] [address] [place] [address] Dr. Esthela Stevens EGFR-NON AF BENINESE >60 Normal >=60 [facility] Comment on above: Performed By: #### P REG #### [facility] [address] [place] [address] Dr. Esthela Stevens Globulin (S) [Mass/Vol] 3.5 g/dL Normal [facility] Comment on above: Performed By: #### P REG #### [facility] [address] [place] [address] Dr. Esthela Stevens Glucose [Mass/Vol] 109 mg/dL Critically high 74-106 [facility] Comment on above: Performed By: #### P REG #### [facility] [address] [place] [address] Dr. Esthela Stevens Potassium [Moles/Vol] 3.8 mmol/L Normal 3.5-5.1 [facility] Comment on above: Performed By: #### P REG #### [facility] [address] [place] [address] Dr. Esthela Stevens Protein [Mass/Vol] 7.5 g/dL Normal 6.4-8.2 [facility] Comment on above: Performed By: #### P REG #### [facility] [address] [place] [address] Dr. Esthela Stevens Sodium [Moles/Vol] 138 mmol/L Normal 136-145 [facility] Comment on above: Performed By: #### P REG #### [facility] [address] [address] [address] Esthela Stevens Urea nitrogen [Mass/Vol] 6.0 mg/dL Critically low 7.0-18.0 [facility] Comment on above: Performed By: #### P REG #### [facility] [address] [address] [address] Esthela Stevens Urea nitrogen/Creatinine [Mass ratio] 8.7 mg/mg Normal [facility] Comment on above: Performed By: #### P REG #### [facility] [address] [place] [address] Dr. Esthela Stevens URINE MICROSCOPIC ONLYon BACTERIA SMALL Abnormal NONE SEEN [facility] Comment on above: Performed By: #### P REG #### [facility] [address] [place] [address] Dr. Esthela Stevens Bacteria identified Cx Nom (U) INDICATED Normal [facility] Comment on above: Performed By: #### P REG #### [facility] [address] [place] [address] Dr. Esthela Stevens CAST NONE SEEN Normal NONE SEEN [facility] Comment on above: Performed By: #### P REG #### [facility] [address] [place] [address] Dr. Esthela Stevens Crystals LM Nom (Urine sed) NONE SEEN Normal NONE SEEN [facility] Comment on above: Performed By: #### P REG #### [facility] [address] [place] [address] Dr. Esthela Stevens Epithelial cells LM Ql (Urine sed) MODERATE Abnormal NONE SEEN /RARE [facility] Comment on above: Performed By: #### P REG #### [facility] [address] [place] [address] Dr. Esthela Stevens MUCOUS NONE SEEN Normal NONE SEEN [facility] Comment on above: Performed By: #### P REG #### [facility] [address] [place] [address] Dr. Esthela Stevens RBC NONE SEEN Abnormal 0-2 [facility] Comment on above: Performed By: #### P REG #### [facility] [address] [address] [address] Esthela Stevens WBC 2-5 Abnormal NONE SEEN [facility] Comment on above: Performed By: #### P REG #### [facility] [address] [address] [address] Esthela Stevens PAP ACOG PANEL 2: 21 to 29on 08-11-2022 . . Normal [facility] Comment on above: Performed By: #### [id number] #### [facility] [address] [address] [address] Esthela Stevens Age Gdln ACOG Testing - Normal [facility] Comment on above: Performed By: #### [id number] #### [facility] [address] [place] [address] Dr. Esthela Stevens DIAGNOSIS: Comment Abnormal [facility] Comment on above: Result Comment: EPIT HELIAL CELL ABNORMALITY. ATYPICAL SQUAMOUS CELLS OF UNDETERMINED SIGNIFICANCE (ASC-US). Performed By: #### [id number] #### [facility] [address] [place] [address] Dr. Esthela Stevens Electronically signed by: Comment Normal [facility] Comment on above: Result Comment: Zoe Moncada MD, Pathologist Performed By: #### [id number] #### [facility] [address] [place] [address] Dr. Esthela Stevens HPV Aptima Negative Normal Negative [facility] Comment on above: Result Comment: This nucleic acid amplification test detects fourteen high-risk HPV types (16,18,31,33,35,39,45,51,52,56,58,59,66,68) without differentiation. Performed By: #### [id number] #### [facility] [address] [place] [address] Dr. Esthela Stevens Methodology: Comment Normal [facility] Comment on above: Result Comment: This liquid based ThinPrep(R) pap test was screened with the use of an image guided system. Performed By: #### [id number] #### [facility] [address] [place] [address] Dr. Esthela Stevens Note: Comment [facility] Comment on above: Result Comment: The Pap smear is a screening test designed to aid in the detection of premalignant and malignant conditions of the uterine cervix. It is not a diagnostic procedure and should not be used as the sole means of detecting cervical cancer. Both false-positive and false-negative reports do occur. . Performed By: #### [id number] #### [facility] [address] [place] [address] Dr. Esthela Stevens Pathologist Provided ICD10 Comment [facility] Comment on above: Result Comment: [id number] Performed By: #### [id number] #### [facility] [address] [place] [address] Dr. Esthlea Stevens Performed by: Comment Normal [facility] Comment on above: Result Comment: Nevin Ardon Hitting Coach (ASCP) Performed By: #### [id number] #### [facility] [address] [place] [address] Dr. Esthela Stevens Reflex Criteria: Comment [facility] Comment on above: Result Comment: See below for HPV testing results. . Performed By: #### [id number] #### [facility] [address] [place] [address] Dr. Esthela Stevens Specimen adequacy: Comment Normal [facility] Comment on above: Result Comment: Sati sfactory for evaluation. Endocervical and/or squamous metaplastic cells (endocervical component) are present. Performed By: #### [id number] #### [facility] [address] [place] [address] Dr. Esthela Stevens GI PANEL (PCR)on 06-03-2022 Adenovirus F 40/41 Not detected Normal NOT DETECTED [facility] Comment on above: Performed By: #### P REG #### [facility] [address] [place] [address] Dr. Esthela Stevens Astrovirus Not detected Normal NOT DETECTED [facility] Comment on above: Performed By: #### P REG #### [facility] [address] [place] [address] Dr. Esthela Stevens C. Diff toxin A/B Detected Critically abnormal NOT DETECTED [facility] Comment on above: Performed By: #### P REG #### [facility] [address] [place] [address] Dr. Esthela Stevens Campylobacter Not detected Normal NOT DETECTED The [facility] Comment on above: Performed By: #### P REG #### [facility] [address] [place] [address] Dr. Esthela Stevens Cryptosporidium Not detected Normal NOT DETECTED [facility] Comment on above: Performed By: #### P REG #### [facility] [address] [place] [address] Dr. Esthela Stevens Cyclos. Cayetanensis Not detected Normal NOT DETECTED [facility] Comment on above: Performed By: #### P REG #### [facility] [address] [place] [address] Dr. Esthela Stevens E. Coli O157 Not Applicable Normal Not Applicable [facility] Comment on above: Performed By: #### P REG #### [facility] [address] [place] [address] Dr. Esthela Stevens E. histolytica Not detected Normal NOT DETECTED The [facility] Comment on above: Performed By: #### P REG #### [facility] [address] [place] [address] Dr. Esthela Stevens EAEC Not detected Normal NOT DETECTED The [facility] Comment on above: Performed By: #### P REG #### [facility] [address] [place] [address] Dr. Esthela Stevens EIEC Not detected Normal NOT DETECTED [facility] Comment on above: Performed By: #### P REG #### [facility] [address] [place] [address] Dr. Esthela Stevens EPEC Not detected Normal NOT DETECTED [facility] Comment on above: Performed By: #### P REG #### [facility] [address] [place] [address] Dr. Esthela Stevens ETEC Not detected Normal NOT DETECTED [facility] Comment on above: Performed By: #### P REG #### [facility] [address] [address] [address] Esthela Yoon Not detected Normal NOT DETECTED [facility] Comment on above: Performed By: #### P REG #### [facility] [address] [address] [address] Esthela KELLY CONTROLS PASSED Normal The [facility] Comment on above: Performed By: #### P REG #### [facility] [address] [address] [address] Esthela MERCADO [facility] HEADER GI PANEL BACTERIA Normal T [facility] Comment on above: Performed By: #### P REG #### [facility] [address] [address] [address] Esthela LARA ECOLI GI PANEL DIARRHEAGENIC E.COLI / SHIGELLA Normal [facility] Comment on above: Performed By: #### P REG #### [facility] [address] [address] [address] Esthela LARA INFO SEE BELOW Normal [facility] Comment on above: Result Comment: EAEC - Enteroaggregative E. Coli EPEC- Enteropathogenic E. Coli ETEC- Enterotoxigenic E. Coli lt/st STEC- Shigella-like toxin-producing E. Coli stx1/stx2 EIEC- Shigella/Enteroinvasive E. Coli Performed By: #### P REG #### [facility] [address] [address] [address] Esthela ALRA PARASITES GI PANEL PARASITES Normal [facility] Comment on above: Performed By: #### P REG #### [facility] [address] [address] [address] Esthela LARA VIRUS GI PANEL VIRUSES Normal [facility] Comment on above: Performed By: #### P REG #### [facility] [address] [place] [address] Dr. Esthela Stevens Norovirus GI/GII Not detected Normal NOT DETECTED [facility] Comment on above: Performed By: #### P REG #### [facility] [address] [address] [address] Esthela Herman. Shigelloides Not detected Normal NOT DETECTED [facility] Comment on above: Performed By: #### P REG #### [facility] [address] [place] [address] Dr. Esthela Stevens Rotavirus A Not detected Normal NOT DETECTED [facility] Comment on above: Performed By: #### P REG #### [facility] [address] [place] [address] Dr. Esthela Stevens Salmonella Not detected Normal NOT DETECTED [facility] Comment on above: Performed By: #### P REG #### [facility] [address] [place] [address] Dr. Esthela Stevens Sapovirus Not detected Normal NOT DETECTED [facility] Comment on above: Performed By: #### P REG #### [facility] [address] [place] [address] Dr. Esthela Stevens STEC Not detected Normal NOT DETECTED [facility] Comment on above: Performed By: #### P REG #### [facility] [address] [place] [address] Dr. Esthela Stevens Vibrio Not detected Normal NOT DETECTED [facility] Comment on above: Performed By: #### P REG #### [facility] [address] [place] [address] Dr. Esthela Stevens Vibrio Cholera Not detected Normal NOT DETECTED [facility] Comment on above: Performed By: #### P REG #### [facility] [address] [place] [address] Dr. Esthela Stevens Y. Enterocolitica Not detected Normal NOT DETECTED [facility] Comment on above: Performed By: #### P REG #### [facility] [address] [place] [address] Dr. Esthela Stevens CBC AUTO DIFFon 06-02-2022 BASO # 0.1 103/ul Normal 0.0-0.1 [facility] Comment on above: Performed By: #### L IVER, LDH, BMP #### [facility] [address] [place] [address] Dr. Esthela Stevens Basophils/100 WBC (Bld) 0.6 % Normal 0.2-2.0 [facility] Comment on above: Performed By: #### L IVER, LDH, BMP #### [facility] [address] [place] [address] Dr. Esthela Stevens EO # 0.5 103/ul Normal 0.0-0.7 [facility] Comment on above: Performed By: #### L IVER, LDH, BMP #### [facility] [address] [place] [address] Dr. Esthela Stevens Eosinophils/100 WBC (Bld) 4.3 % Normal 0.9-7.0 [facility] Comment on above: Performed By: #### L IVER, LDH, BMP #### [facility] [address] [place] [address] Dr. Esthela Stevens Erythrocyte distribution width (RBC) [Ratio] 13.0 % Normal 11.0-15.0 [facility] Comment on above: Performed By: #### L IVER, LDH, BMP #### [facility] [address] [place] [address] Dr. Esthela Stevens Hematocrit (Bld) [Volume fraction] 33.6 % Critically low 36.0-48.0 [facility] Comment on above: Performed By: #### L IVER, LDH, BMP #### [facility] [address] [place] [address] Dr. Esthela Stevens Hemoglobin (Bld) [Mass/Vol] 10.9 g/dL Critically low 12.0-16.0 [facility] Comment on above: Performed By: #### L IVER, LDH, BMP #### [facility] [address] [place] [address] Dr. Esthela Stevens IG # 0.05 10e3/ul Critically high 0.00-0.03 [facility] Comment on above: Performed By: #### L IVER, LDH, BMP #### [facility] [address] [place] [address] Dr. Esthela Stevens IG % 0.5 % Normal 0.0-0.5 [facility] Comment on above: Performed By: #### L IVER, LDH, BMP #### [facility] [address] [place] [address] Dr. Esthela Stevens LYMPH # 2.4 103/ul Normal 1.2-3.8 [facility] Comment on above: Performed By: #### L IVER, LDH, BMP #### [facility] [address] [place] [address] Dr. Esthela Stevens Lymphocytes/100 WBC (Bld) 22.4 % Normal 20.5-60.0 [facility] Comment on above: Performed By: #### L IVER, LDH, BMP #### [facility] [address] [place] [address] Dr. Esthela Stevens MANUAL DIFF REQ NO Normal [facility] Comment on above: Performed By: #### L IVER, LDH, BMP #### [facility] [address] [place] [address] Dr. Esthela Stevens MCH (RBC) [Entitic mass] 26.9 pg Normal 26.7-34.0 [facility] Comment on above: Performed By: #### L IVER, LDH, BMP #### [facility] [address] [place] [address] Dr. Esthela Stevens MCHC (RBC) [Mass/Vol] 32.4 g/dL Normal 29.9-35.2 [facility] Comment on above: Performed By: #### L IVER, LDH, BMP #### [facility] [address] [place] [address] Dr. Esthela Stevens MCV (RBC) [Entitic vol] 83.0 fL Normal 81.0-99.0 [facility] Comment on above: Performed By: #### L IVER, LDH, BMP #### [facility] [address] [place] [address] Dr. Esthela Stevens MONO # 0.8 103/ul Normal 0.3-0.8 [facility] Comment on above: Performed By: #### L IVER, LDH, BMP #### [facility] [address] [place] [address] Dr. Esthela Stevens Monocytes/100 WBC (Bld) 7.1 % Normal 1.7-12.0 [facility] Comment on above: Performed By: #### L IVER, LDH, BMP #### [facility] [address] [address] [address] Esthela Stevens NEUT # 7.0 103/ul Critically high 1.4-6.5 [facility] Comment on above: Performed By: #### L IVER, LDH, BMP #### [facility] [address] [place] [address] Dr. Esthela Stevens Neutrophils/100 WBC (Bld) 65.1 % Normal 43.0-75.0 [facility] Comment on above: Performed By: #### L IVER, LDH, BMP #### [facility] [address] [place] [address] Dr. Esthela Stevens Platelet mean volume (Bld) [Entitic vol] 8.9 fL Critically low 9.5-13.5 [facility] Comment on above: Performed By: #### L IVER, LDH, BMP #### [facility] [address] [place] [address] Dr. Esthela Stevens PLT 519 103/ul Critically high 150-450 [facility] Comment on above: Performed By: #### L IVER, LDH, BMP #### [facility] [address] [place] [address] Dr. Esthela Stevens RBC 4.05 106/ul Critically low 4.20-5.40 [facility] Comment on above: Performed By: #### L IVER, LDH, BMP #### [facility] [address] [place] [address] Dr. Esthela Stevens WBC 10.8 103/ul Normal 4.0-11.0 [facility] Comment on above: Performed By: #### L IVER, LDH, BMP #### [facility] [address] [place] [address] Dr. Esthela Stevens PROF 14(COMP METB)on 06-02- 022 Albumin [Mass/Vol] 3.7 g/dL Normal 3.4-5.0 [facility] Comment on above: Performed By: #### L IVER, LDH, BMP #### [facility] [address] [address] [address] Esthela Stevens Albumin/Globulin [Mass ratio] 1.0 {ratio} Normal [facility] Comment on above: Performed By: #### L IVER, LDH, BMP #### [facility] [address] [address] [address] Esthela Stevens ALP [Catalytic activity/Vol] 75 U/L Normal 46-116 [facility] Comment on above: Performed By: #### L IVER, LDH, BMP #### [facility] [address] [address] [address] Esthela Stevens ALT [Catalytic activity/Vol] 95 U/L Critically high 14-59 [facility] Comment on above: Performed By: #### L IVER, LDH, BMP #### [facility] [address] [address] [address] Esthela Stevens Anion gap [Moles/Vol] 13.4 mmol/L Normal [facility] Comment on above: Performed By: #### L IVER, LDH, BMP #### [facility] [address] [address] [address] Esthela Stevens AST [Catalytic activity/Vol] 31 U/L Normal 15-37 [facility] Comment on above: Performed By: #### L IVER, LDH, BMP #### [facility] [address] [address] [address] Esthela Stevens Bilirubin [Mass/Vol] 0.1 mg/dL Critically low 0.2-1.0 [facility] Comment on above: Performed By: #### L IVER, LDH, BMP #### [facility] [address] [address] [address] Esthela Stevens Calcium [Mass/Vol] 9.3 mg/dL Normal 8.5-10.1 [facility] Comment on above: Performed By: #### L IVER, LDH, BMP #### [facility] [address] [address] [address] Esthela Stevens Chloride [Moles/Vol] 102 mmol/L Normal 98-107 [facility] Comment on above: Performed By: #### L IVER, LDH, BMP #### [facility] [address] [address] [address] Esthela Stevens CO2 [Moles/Vol] 26.4 mmol/L Normal 21.0-32.0 [facility] Comment on above: Performed By: #### L IVER, LDH, BMP #### [facility] [address] [address] [address] Esthela Stevens Creatinine [Mass/Vol] 0.67 mg/dL Normal 0.55-1.02 [facility] Comment on above: Performed By: #### L IVER, LDH, BMP #### [facility] [address] [place] [address] Dr. Esthela Stevens EGFR-AF BENINESE >60 Normal >=60 [facility] Comment on above: Performed By: #### L IVER, LDH, BMP #### [facility] [address] [place] [address] Dr. Esthela Stevens EGFR-NON AF BENINESE >60 Normal >=60 [facility] Comment on above: Performed By: #### L IVER, LDH, BMP #### [facility] [address] [place] [address] Dr. Esthela Stevens Globulin (S) [Mass/Vol] 3.7 g/dL Normal [facility] Comment on above: Performed By: #### L IVER, LDH, BMP #### [facility] [address] [address] [address] Esthela Stevens Glucose [Mass/Vol] 101 mg/dL Normal 74-106 [facility] Comment on above: Performed By: #### L IVER, LDH, BMP #### [facility] [address] [place] [address] Dr. Esthela Stevens Potassium [Moles/Vol] 3.8 mmol/L Normal 3.5-5.1 [facility] Comment on above: Performed By: #### L IVER, LDH, BMP #### [facility] [address] [place] [address] Dr. Esthela Stevens Protein [Mass/Vol] 7.4 g/dL Normal 6.4-8.2 [facility] Comment on above: Performed By: #### L IVER LDH, BMP #### [facility] [address] [address] [address] Esthela Stevens Sodium [Moles/Vol] 138 mmol/L Normal 136-145 [facility] Comment on above: Performed By: #### L IVER, LDH, BMP #### [facility] [address] [address] [address] Esthela Stevens Urea nitrogen [Mass/Vol] 12.0 mg/dL Normal 7.0-18.0 [facility] Comment on above: Performed By: #### L IVER LDH, BMP #### [facility] [address] [address] [address] Esthela Stevens Urea nitrogen/Creatinine [Mass ratio] 17.9 mg/mg Normal [facility] Comment on above: Performed By: #### L IVER, LDH, BMP #### [facility] [address] [address] [address] Esthela Stevens CALCIUMon 05-29-2022 Calcium [Mass/Vol] 9.0 mg/dL 8.6 - 10. 5 mg/dL [facility] CBC,PLATELETSon 05-29-2022 Erythrocyte distribution width (RBC) [Ratio] 13.1 % 10.8 - 14.9 % [facility] Hematocrit (Bld) [Volume fraction] 33.0 % Low 34.9 - 44.3 % [facility] Hemoglobin (Bld) [Mass/Vol] 10.5 g/dL Low 11.4 - 15.2 g/dL [facility] Interpretation and review of laboratory results Abnormal [facility] MCH (RBC) [Entitic mass] 27.1 pg 25.9 - 33.9 pg [facility] MCHC (RBC) [Mass/Vol] 31.8 g/dL 31.4 - 35.9 g/dL [facility] MCV (RBC) [Entitic vol] 85.1 fL 79.6 - 97.7 fL [facility] Platelet mean volume (Bld) [Entitic vol] 9.1 fL 8.5 - 12.2 fL [facility] Platelets (Bld) [#/Vol] 423 10*3/uL High 150 - 393 K/uL [facility] RBC (Bld) [#/Vol] 3.88 10*6/uL Low [facility] WBC (Bld) [#/Vol] 7.36 10*3/uL 3.99 - 11. 19 K/uL [facility] CHEM 7 (LYTES,BUN,CREA,GLUC) on 05-29-2022 Anion gap [Moles/Vol] 13 mmol/L 7 - 17 mmol/L [facility] Chloride [Moles/Vol] 104 mmol/L 98 - 10 8 mmol/L [facility] CO2 [Moles/Vol] 26 mmol/L 21 - 31 mmol/L [facility] Creatinine [Mass/Vol] 0.66 mg/dL 0.50 - 1.20 mg/dL [facility] GFR/1.73 sq M.predicted CKD-EPI (S/P/Bld) [Vol rate/Area] - [facility] Comment on above: Reported eGFR is bas ed on the CKD-EPI 2020 equation using creatinine, age, and sex. Glucose [Mass/Vol] 93 mg/dL 70 - 99 mg/dL [facility] Osmolality Calc [Osmolality] 288 [facility] Potassium [Moles/Vol] 4.2 mmol/L 3.5 - 5.0 mmol/L [facility] Sodium [Moles/Vol] 139 mmol/L 135 - 145 mmol/L [facility] Urea nitrogen [Mass/Vol] 5 mg/dL Low 7 - 25 mg/dL [facility] Urea nitrogen/Creatinine [Mass ratio] 8 mg/mg [facility] MAGNESIUMon 05-29-2022 Magnesium [Mass/Vol] 2.1 mg/dL 1.6 - 2 .6 mg/dL [facility] No Panel Informationon 05-29 Interpretation and review of laboratory results Abnormal [facility] Interpretation and review of laboratory results Normal [facility] PHOSPHATE, INORGANICon 05-29 Phosphate [Mass/Vol] 4.8 mg/dL High 2.2 - 4 .6 mg/dL [facility] CALCIUMon 05-28-2022 Calcium [Mass/Vol] 8.6 mg/dL 8.6 - 10. 5 mg/dL [facility] CBC,PLATELETSon 05-28-2022 Erythrocyte distribution width (RBC) [Ratio] 13.0 % 10.8 - 14.9 % [facility] Hematocrit (Bld) [Volume fraction] 30.5 % Low 34.9 - 44.3 % [facility] Hemoglobin (Bld) [Mass/Vol] 9.8 g/dL Low 11.4 - 15.2 g/dL [facility] Interpretation and review of laboratory results Abnormal [facility] MCH (RBC) [Entitic mass] 26.8 pg 25.9 - 33.9 pg [facility] MCHC (RBC) [Mass/Vol] 32.1 g/dL 31.4 - 35.9 g/dL [facility] MCV (RBC) [Entitic vol] 83.6 fL 79.6 - 97.7 fL [facility] Platelet mean volume (Bld) [Entitic vol] 9.3 fL 8.5 - 12.2 fL [facility] Platelets (Bld) [#/Vol] 374 10*3/uL 150 - 393 K/uL [facility] RBC (Bld) [#/Vol] 3.65 10*6/uL Low [facility] WBC (Bld) [#/Vol] 6.07 10*3/uL 3.99 - 11. 19 K/uL [facility] CHEM 7 (LYTES,BUN,CREA,GLUC) on 05-28-2022 Anion gap [Moles/Vol] 11 mmol/L 7 - 17 mmol/L [facility] Chloride [Moles/Vol] 106 mmol/L 98 - 10 8 mmol/L [facility] CO2 [Moles/Vol] 25 mmol/L 21 - 31 mmol/L [facility] Creatinine [Mass/Vol] 0.50 mg/dL 0.50 - 1.20 mg/dL [facility] GFR/1.73 sq M.predicted CKD-EPI (S/P/Bld) [Vol rate/Area] - PINF [facility] Comment on above: Reported eGFR is bas ed on the CKD-EPI 2020 equation using creatinine, age, and sex. Glucose [Mass/Vol] 89 mg/dL 70 - 99 mg/dL [facility] Osmolality Calc [Osmolality] 285 [facility] Potassium [Moles/Vol] 4.1 mmol/L 3.5 - 5.0 mmol/L [facility] Sodium [Moles/Vol] 138 mmol/L 135 - 145 mmol/L [facility] Urea nitrogen [Mass/Vol] 3 mg/dL Low 7 - 25 mg/dL [facility] Urea nitrogen/Creatinine [Mass ratio] 6 mg/mg [facility] MAGNESIUMon 05-28-2022 Magnesium [Mass/Vol] 1.8 mg/dL 1.6 - 2 .6 mg/dL [facility] No Panel Informationon 05-28 Interpretation and review of laboratory results Abnormal [facility] Interpretation and review of laboratory results Normal [facility] PHOSPHATE, INORGANICon 05-28 Phosphate [Mass/Vol] 4.9 mg/dL High 2.2 - 4 .6 mg/dL [facility] CALCIUMon 05-27-2022 Calcium [Mass/Vol] 8.6 mg/dL 8.6 - 10. 5 mg/dL [facility] CBC,PLATELETSon 05-27-2022 Erythrocyte distribution width (RBC) [Ratio] 12.9 % 10.8 - 14.9 % [facility] Hematocrit (Bld) [Volume fraction] 31.1 % Low 34.9 - 44.3 % [facility] Hemoglobin (Bld) [Mass/Vol] 10.1 g/dL Low 11.4 - 15.2 g/dL [facility] Interpretation and review of laboratory results Abnormal [facility] MCH (RBC) [Entitic mass] 27.2 pg 25.9 - 33.9 pg [facility] MCHC (RBC) [Mass/Vol] 32.5 g/dL 31.4 - 35.9 g/dL [facility] MCV (RBC) [Entitic vol] 83.8 fL 79.6 - 97.7 fL [facility] Platelet mean volume (Bld) [Entitic vol] 9.2 fL 8.5 - 12.2 fL [facility] Platelets (Bld) [#/Vol] 344 10*3/uL 150 - 393 K/uL [facility] RBC (Bld) [#/Vol] 3.71 10*6/uL Low [facility] WBC (Bld) [#/Vol] 6.21 10*3/uL 3.99 - 11. 19 K/uL [facility] CHEM 7 (LYTES,BUN,CREA,GLUC) on 05-27-2022 Anion gap [Moles/Vol] 11 mmol/L 7 - 17 mmol/L [facility] Chloride [Moles/Vol] 105 mmol/L 98 - 10 8 mmol/L [facility] CO2 [Moles/Vol] 26 mmol/L 21 - 31 mmol/L [facility] Creatinine [Mass/Vol] 0.49 mg/dL Low 0.50 - 1.20 mg/dL [facility] GFR/1.73 sq M.predicted CKD-EPI (S/P/Bld) [Vol rate/Area] - [facility] Comment on above: Reported eGFR is bas ed on the CKD-EPI 2020 equation using creatinine, age, and sex. Glucose [Mass/Vol] 93 mg/dL 70 - 99 mg/dL [facility] Interpretation and review of laboratory results Abnormal [facility] Osmolality Calc [Osmolality] 285 [facility] Potassium [Moles/Vol] 4.0 mmol/L 3.5 - 5.0 mmol/L [facility] Sodium [Moles/Vol] 138 mmol/L 135 - 145 mmol/L [facility] Urea nitrogen [Mass/Vol] 3 mg/dL Low 7 - 25 mg/dL [facility] Urea nitrogen/Creatinine [Mass ratio] 6 mg/mg [facility] MAGNESIUMon 05-27-2022 Magnesium [Mass/Vol] 1.9 mg/dL 1.6 - 2 .6 mg/dL [facility] No Panel Informationon 05-27 Interpretation and review of laboratory results Normal [facility] PHOSPHATE, INORGANICon 05-27 Phosphate [Mass/Vol] 4.5 mg/dL 2.2 - 4 .6 mg/dL [facility] CALCIUMon 05-26-2022 Calcium [Mass/Vol] 8.4 mg/dL Low 8.6 - 10. 5 mg/dL [facility] CBC,PLATELETSon 05-26-2022 Erythrocyte distribution width (RBC) [Ratio] 12.8 % 10.8 - 14.9 % [facility] Hematocrit (Bld) [Volume fraction] 31.5 % Low 34.9 - 44.3 % [facility] Hemoglobin (Bld) [Mass/Vol] 10.0 g/dL Low 11.4 - 15.2 g/dL [facility] Interpretation and review of laboratory results Abnormal [facility] MCH (RBC) [Entitic mass] 27.0 pg 25.9 - 33.9 pg [facility] MCHC (RBC) [Mass/Vol] 31.7 g/dL 31.4 - 35.9 g/dL [facility] MCV (RBC) [Entitic vol] 84.9 fL 79.6 - 97.7 fL [facility] Platelet mean volume (Bld) [Entitic vol] 9.7 fL 8.5 - 12.2 fL [facility] Platelets (Bld) [#/Vol] 327 10*3/uL 150 - 393 K/uL [facility] RBC (Bld) [#/Vol] 3.71 10*6/uL Low [facility] WBC (Bld) [#/Vol] 7.91 10*3/uL 3.99 - 11. 19 K/uL [facility] CHEM 7 (LYTES,BUN,CREA,GLUC) on 05-26-2022 Anion gap [Moles/Vol] 13 mmol/L 7 - 17 mmol/L [facility] Chloride [Moles/Vol] 102 mmol/L 98 - 10 8 mmol/L [facility] CO2 [Moles/Vol] 23 mmol/L 21 - 31 mmol/L [facility] Creatinine [Mass/Vol] 0.48 mg/dL Low 0.50 - 1.20 mg/dL [facility] GFR/1.73 sq M.predicted CKD-EPI (S/P/Bld) [Vol rate/Area] - [facility] Comment on above: Reported eGFR is bas ed on the CKD-EPI 2020 equation using creatinine, age, and sex. Glucose [Mass/Vol] 154 mg/dL High 70 - 99 mg/dL [facility] Osmolality Calc [Osmolality] 282 [facility] Potassium [Moles/Vol] 4.1 mmol/L 3.5 - 5.0 mmol/L [facility] Sodium [Moles/Vol] 134 mmol/L Low 135 - 145 mmol/L [facility] Urea nitrogen [Mass/Vol] 3 mg/dL Low 7 - 25 mg/dL [facility] Urea nitrogen/Creatinine [Mass ratio] 6 mg/mg [facility] MAGNESIUMon 05-26-2022 Magnesium [Mass/Vol] 1.8 mg/dL 1.6 - 2 .6 mg/dL [facility] [facility] Panel Informationon 05-26 Interpretation and review of laboratory results Abnormal [facility] Interpretation and review of laboratory results Normal [facility] PHOSPHATE, INORGANICon 05-26 Phosphate [Mass/Vol] 3.4 mg/dL 2.2 - 4 .6 mg/dL [facility] CALCIUMon 05-25-2022 Calcium [Mass/Vol] 8.5 mg/dL Low 8.6 - 10. 5 mg/dL [facility] CBC,PLATELETSon 05-25-2022 Erythrocyte distribution width (RBC) [Ratio] 12.8 % 10.8 - 14.9 % [facility] Hematocrit (Bld) [Volume fraction] 31.7 % Low 34.9 - 44.3 % [facility] Hemoglobin (Bld) [Mass/Vol] 9.8 g/dL Low 11.4 - 15.2 g/dL [facility] Interpretation and review of laboratory results Abnormal [facility] MCH (RBC) [Entitic mass] 26.6 pg 25.9 - 33.9 pg [facility] MCHC (RBC) [Mass/Vol] 30.9 g/dL Low 31.4 - 35.9 g/dL [facility] MCV (RBC) [Entitic vol] 85.9 fL 79.6 - 97.7 fL [facility] Platelet mean volume (Bld) [Entitic vol] 9.7 fL 8.5 - 12.2 fL [facility] Platelets (Bld) [#/Vol] 292 10*3/uL 150 - 393 K/uL [facility] RBC (Bld) [#/Vol] 3.69 10*6/uL Low [facility] WBC (Bld) [#/Vol] 9.85 10*3/uL 3.99 - 11. 19 K/uL [facility] CHEM 7 (LYTES,BUN,CREA,GLUC) on 05-25-2022 Anion gap [Moles/Vol] 13 mmol/L 7 - 17 mmol/L [facility] Chloride [Moles/Vol] 104 mmol/L 98 - 10 8 mmol/L [facility] CO2 [Moles/Vol] 24 mmol/L 21 - 31 mmol/L [facility] Creatinine [Mass/Vol] 0.51 mg/dL 0.50 - 1.20 mg/dL [facility] GFR/1.73 sq M.predicted CKD-EPI (S/P/Bld) [Vol rate/Area] - PINF [facility] Comment on above: Reported eGFR is bas ed on the CKD-EPI 2020 equation using creatinine, age, and sex. Glucose [Mass/Vol] 98 mg/dL 70 - 99 mg/dL [facility] Osmolality Calc [Osmolality] 283 [facility] Potassium [Moles/Vol] 4.0 mmol/L 3.5 - 5.0 mmol/L [facility] Sodium [Moles/Vol] 137 mmol/L 135 - 145 mmol/L [facility] Urea nitrogen [Mass/Vol] 2 mg/dL Low 7 - 25 mg/dL [facility] Urea nitrogen/Creatinine [Mass ratio] 4 mg/mg [facility] MAGNESIUMon 05-25-2022 Magnesium [Mass/Vol] 1.8 mg/dL 1.6 - 2 .6 mg/dL [facility] No Panel Informationon 05-25 Interpretation and review of laboratory results Abnormal [facility] Interpretation and review of laboratory results Normal [facility] PHOSPHATE, INORGANICon 05-25 Phosphate [Mass/Vol] 3.2 mg/dL 2.2 - 4 .6 mg/dL [facility] CALCIUMon 05-24-2022 Calcium [Mass/Vol] 7.9 mg/dL Low 8.6 - 10. 5 mg/dL [facility] CBC,PLATELETSon 05-24-2022 Erythrocyte distribution width (RBC) [Ratio] 13.2 % 10.8 - 14.9 % [facility] Hematocrit (Bld) [Volume fraction] 33.0 % Low 34.9 - 44.3 % [facility] Hemoglobin (Bld) [Mass/Vol] 10.4 g/dL Low 11.4 - 15.2 g/dL [facility] Interpretation and review of laboratory results Abnormal [facility] MCH (RBC) [Entitic mass] 27.2 pg 25.9 - 33.9 pg [facility] MCHC (RBC) [Mass/Vol] 31.5 g/dL 31.4 - 35.9 g/dL [facility] MCV (RBC) [Entitic vol] 86.2 fL 79.6 - 97.7 fL [facility] Platelet mean volume (Bld) [Entitic vol] 9.7 fL 8.5 - 12.2 fL [facility] Platelets (Bld) [#/Vol] 270 10*3/uL 150 - 393 K/uL [facility] RBC (Bld) [#/Vol] 3.83 10*6/uL Low [facility] WBC (Bld) [#/Vol] 13.10 10*3/uL High 3.99 - 11 .19 K/uL [facility] CHEM 7 (LYTES,BUN,CREA,GLUC) on 05-24-2022 Anion gap [Moles/Vol] 10 mmol/L 7 - 17 mmol/L [facility] Chloride [Moles/Vol] 105 mmol/L 98 - 10 8 mmol/L [facility] CO2 [Moles/Vol] 24 mmol/L 21 - 31 mmol/L [facility] Creatinine [Mass/Vol] 0.51 mg/dL 0.50 - 1.20 mg/dL [facility] GFR/1.73 sq M.predicted CKD-EPI (S/P/Bld) [Vol rate/Area] - [facility] Comment on above: Reported eGFR is bas ed on the CKD-EPI 2020 equation using creatinine, age, and sex. Glucose [Mass/Vol] 121 mg/dL High 70 - 99 mg/dL [facility] Osmolality Calc [Osmolality] 281 [facility] Potassium [Moles/Vol] 4.1 mmol/L 3.5 - 5.0 mmol/L [facility] Sodium [Moles/Vol] 135 mmol/L 135 - 145 mmol/L [facility] Urea nitrogen [Mass/Vol] 2 mg/dL Low 7 - 25 mg/dL [facility] Urea nitrogen/Creatinine [Mass ratio] 4 mg/mg [facility] MAGNESIUMon 05-24-2022 Interpretation and review of laboratory results Normal [facility] Magnesium [Mass/Vol] 1.7 mg/dL 1.6 - 2 .6 mg/dL [facility] No Panel Informationon 05-24 Interpretation and review of laboratory results Abnormal [facility] PHOSPHATE, INORGANICon 05-24 Phosphate [Mass/Vol] 2.1 mg/dL Low 2.2 - 4 .6 mg/dL [facility] CALCIUMon 05-23-2022 Calcium [Mass/Vol] 8.0 mg/dL Low 8.6 - 10. 5 mg/dL [facility] Interpretation and review of laboratory results Abnormal [facility] CBC,PLATELETSon 05-23-2022 Erythrocyte distribution width (RBC) [Ratio] 13.0 % 10.8 - 14.9 % [facility] Hematocrit (Bld) [Volume fraction] 38.4 % 34.9 - 44.3 % [facility] Hemoglobin (Bld) [Mass/Vol] 12.3 g/dL 11.4 - 15.2 g/dL [facility] Interpretation and review of laboratory results Abnormal [facility] MCH (RBC) [Entitic mass] 26.8 pg 25.9 - 33.9 pg [facility] MCHC (RBC) [Mass/Vol] 32.0 g/dL 31.4 - 35.9 g/dL [facility] MCV (RBC) [Entitic vol] 83.7 fL 79.6 - 97.7 fL [facility] Platelet mean volume (Bld) [Entitic vol] 9.6 fL 8.5 - 12.2 fL [facility] Platelets (Bld) [#/Vol] 354 10*3/uL 150 - 393 K/uL [facility] RBC (Bld) [#/Vol] 4.59 10*6/uL [facility] WBC (Bld) [#/Vol] 12.80 10*3/uL High 3.99 - 11 .19 K/uL [facility] CHEM 7 (LYTES,BUN,CREA,GLUC) Ordered By: Shraddha Munguia on 05-23-2022 Anion gap [Moles/Vol] 13 mmol/L 7 - 17 mmol/L [facility] Chloride [Moles/Vol] 103 mmol/L 98 - 10 8 mmol/L [facility] CO2 [Moles/Vol] 24 mmol/L 21 - 31 mmol/L [facility] Creatinine [Mass/Vol] 0.68 mg/dL 0.50 - 1.20 mg/dL [facility] GFR/1.73 sq M.predicted CKD-EPI (S/P/Bld) [Vol rate/Area] - PINF [facility] Comment on above: Reported eGFR is bas ed on the CKD-EPI 2020 equation using creatinine, age, and sex. Glucose [Mass/Vol] 148 mg/dL High 70 - 99 mg/dL [facility] Interpretation and review of laboratory results Abnormal [facility] Osmolality Calc [Osmolality] 285 [facility] Potassium [Moles/Vol] 4.9 mmol/L 3.5 - 5.0 mmol/L [facility] Sodium [Moles/Vol] 135 mmol/L 135 - 145 mmol/L [facility] Urea nitrogen [Mass/Vol] 4 mg/dL Low 7 - 25 mg/dL [facility] Urea nitrogen/Creatinine [Mass ratio] 6 mg/mg [facility] MAGNESIUMon 05-23-2022 Magnesium [Mass/Vol] 2.5 mg/dL 1.6 - 2 .6 mg/dL [facility] No Panel Informationon 05-23 Interpretation and review of laboratory results Normal [facility] PHOSPHATE, INORGANICon 05-23 Phosphate [Mass/Vol] 2.7 mg/dL 2.2 - 4 .6 mg/dL [facility] BETA HCG, URINE (POC DEVICE) on 05-22-2022 Beta HCG ( test) Ql (U) Negative Negative [facility] Interpretation and review of laboratory results Normal [facility] Test performed at address of the patient encounter. [facility] CALCIUMon 05-22-2022 Calcium [Mass/Vol] 7.8 mg/dL Low 8.6 - 10. 5 mg/dL [facility] CBC,PLATELETSon 05-22-2022 Erythrocyte distribution width (RBC) [Ratio] 12.7 % 10.8 - 14.9 % [facility] Hematocrit (Bld) [Volume fraction] 37.0 % 34.9 - 44.3 % [facility] Hemoglobin (Bld) [Mass/Vol] 12.0 g/dL 11.4 - 15.2 g/dL [facility] Interpretation and review of laboratory results Abnormal [facility] MCH (RBC) [Entitic mass] 26.3 pg 25.9 - 33.9 pg [facility] MCHC (RBC) [Mass/Vol] 32.4 g/dL 31.4 - 35.9 g/dL [facility] MCV (RBC) [Entitic vol] 81.0 fL 79.6 - 97.7 fL [facility] Platelet mean volume (Bld) [Entitic vol] 9.5 fL 8.5 - 12.2 fL [facility] Platelets (Bld) [#/Vol] 350 10*3/uL 150 - 393 K/uL [facility] RBC (Bld) [#/Vol] 4.57 10*6/uL [facility] WBC (Bld) [#/Vol] 17.70 10*3/uL High 3.99 - 11 .19 K/uL [facility] CHEM 7 (LYTES,BUN,CREA,GLUC) on 05-22-2022 Anion gap [Moles/Vol] 16 mmol/L 7 - 17 mmol/L [facility] Chloride [Moles/Vol] 103 mmol/L 98 - 10 8 mmol/L [facility] CO2 [Moles/Vol] 21 mmol/L 21 - 31 mmol/L [facility] Creatinine [Mass/Vol] 0.56 mg/dL 0.50 - 1.20 mg/dL [facility] GFR/1.73 sq M.predicted CKD-EPI (S/P/Bld) [Vol rate/Area] - [facility] Comment on above: Reported eGFR is bas ed on the CKD-EPI 2020 equation using creatinine, age, and sex. Glucose [Mass/Vol] 133 mg/dL High 70 - 99 mg/dL [facility] Osmolality Calc [Osmolality] 285 [facility] Potassium [Moles/Vol] 3.9 mmol/L 3.5 - 5.0 mmol/L [facility] Sodium [Moles/Vol] 136 mmol/L 135 - 145 mmol/L [facility] Urea nitrogen [Mass/Vol] 6 mg/dL Low 7 - 25 mg/dL [facility] Urea nitrogen/Creatinine [Mass ratio] 11 mg/mg [facility] CONTINUOUS CARDIAC MONITORIN G STRIPon 05-22-2022 [facility] CONTINUOUS CARDIAC MONITORIN G STRIPOrdered By: Unassigned Pacs on 05-22-2022 [facility] Work Phone: HEPATIC FUNCTION PANELon Albumin [Mass/Vol] 3.8 g/dL 3.5 - 5.0 g/dL [facility] ALP [Catalytic activity/Vol] 54 U/L 32 - 126 U/L [facility] ALT [Catalytic activity/Vol] 17 U/L 9 - 48 U/L [facility] AST [Catalytic activity/Vol] 23 U/L 10 - 39 U/L [facility] Bilirubin [Mass/Vol] 0.5 mg/dL NINF - 1.5 mg/dL [facility] Bilirubin.direct [Mass/Vol] 0.2 mg/dL NINF - 0.3 mg/dL [facility] Protein [Mass/Vol] 6.3 g/dL Low 6.4 - 8.3 g/dL [facility] MAGNESIUMon 05-22-2022 Magnesium [Mass/Vol] 1.4 mg/dL Low 1.6 - 2 .6 mg/dL [facility] No Panel Informationon 05-22 ABO/RH(D) TYPE Positive [facility] BLOOD COMPONENT TYPE Red Cells, Leukoreduced [facility] EXPIRATION DATE [id number] [facility] Product ABO/RH(D) Positive [facility] Product ABO/RH(D) NUMBER [id number] [facility] PRODUCT CODE [id number] [facility] UNIT STATUS released [facility] Interpretation and review of laboratory results Abnormal [facility] PHOSPHATE, INORGANICon 05-22 Interpretation and review of laboratory results Normal [facility] Phosphate [Mass/Vol] 3.3 mg/dL 2.2 - 4 .6 mg/dL [facility] POC ARTERIAL BLOOD GASon Base excess Calc (Bld) [Moles/Vol] -2.1000 mmol/L -3.0 - 3.0 mmol/L [facility] Calcium.ionized (Bld) [Mass/Vol] 4.22 mg/dL Low 4.60 - 5.30 mg/dL [facility] CO2 (Bld) [Partial pressure] 33 mm[Hg] [facility] Glucose [Mass/Vol] 127 mg/dL High 70 - 99 mg/dL [facility] HCO3 (Bld) [Moles/Vol] 22 mmol/L 22 - 28 mmol/L [facility] Hematocrit (Bld) [Volume fraction] 34.5 % 34.2 - 45.6 % [facility] Hemoglobin (Bld) [Mass/Vol] 11.3 g/dL Low 11.4 - 15.2 g/dL [facility] Interpretation and review of laboratory results Abnormal [facility] Lactate [Moles/Vol] 1.2 mmol/L 0.5 - 1. 6 mmol/L [facility] Oxygen (Bld) [Partial pressure] 230 mm[Hg] High [facility] Oxygen saturation in Blood 99 % [facility] pH (Bld) 7.42 [pH] 7.35 - 7.45 [facility] Potassium [Moles/Vol] 3.6 mmol/L 3.5 - 5.0 mmol/L [facility] Sodium [Moles/Vol] 137 mmol/L 135 - 145 mmol/L [facility] Specimen source Nom (Unsp spec) Arterial [facility] Test performed at address of the patient encounter. [facility] Base excess Calc (Bld) [Moles/Vol] 0.0 mmol/L -3.0 - 3.0 mmol/L [facility] Calcium.ionized (Bld) [Mass/Vol] 4.56 mg/dL Low 4.60 - 5.30 mg/dL [facility] CO2 (Bld) [Partial pressure] 38 mm[Hg] [facility] Glucose [Mass/Vol] 138 mg/dL High 70 - 99 mg/dL [facility] HCO3 (Bld) [Moles/Vol] 24 mmol/L 22 - 28 mmol/L [facility] Hematocrit (Bld) [Volume fraction] 34.7 % 34.2 - 45.6 % [facility] Hemoglobin (Bld) [Mass/Vol] 11.3 g/dL Low 11.4 - 15.2 g/dL [facility] Interpretation and review of laboratory results Abnormal [facility] Oxygen (Bld) [Partial pressure] 197 mm[Hg] High [facility] Oxygen saturation in Blood 99 % [facility] pH (Bld) 7.42 [pH] 7.35 - 7.45 [facility] Potassium [Moles/Vol] 3.4 mmol/L Low 3.5 - 5.0 mmol/L [facility] Sodium [Moles/Vol] 138 mmol/L 135 - 145 mmol/L [facility] Specimen source Nom (Unsp spec) Arterial [facility] Test performed at address of the patient encounter. [facility] PREPARE TO TRANSFUSE OR RED BLOOD CELLSon 05-22-2022 UNIT NUMBER [id number] [facility] UNIT NUMBER [id number] [facility] PROTIME-INRon 05-22-2022 INR Coag (Bld) [Relative time] 1.2 {INR} High 0.9 - 1.1 [facility] Interpretation and review of laboratory results Abnormal [facility] PT Coag (PPP) [Time] 14.8 s High [facility] TYPE AND SCREENon 05-22-2022 ABO/RH(D) TYPE Positive [facility] XR Abdomen Single viewon IMPRESSION: Appropriate [...] of the nasogastric tube in the stomach. [facility] Rad[facility] (narrative) [facility]domen Single viewOrdere d By: Debora Burciaga on 05-22-2022 [facility] Work Phone: PREG HCG QUALon 04-08-2022 , QUAL Negative Normal NEGATIVE [facility] Comment on above: Performed By: #### P REG #### [facility] [address], [place] [address] Dr. Esthela Stevens Covid-19 PCR (CVDTB)on 03-19 SARS-CoV-2 (COVID-19) RNA JORGE LUIS+probe Ql (Unsp spec) Not detected Normal NOT DETECTED [facility] Comment on above: Result Comment: This test is not yet approved or cleared by the [place] FDA. When there are no FDA-approved or cleared tests available, and other criteria are met, FDA can make tests available under an emergency access mechanism called an Emergency Use Authorization (EUA). The EUA for this test is supported by the [place] of Health and Human Service's (HHS's) declaration [...] By: #### L IVER, LDH, BMP #### [facility] [address], [place] [address] Abdomen and Pelvis [...] error, please notify the sender immediately at [phone] and permanently delete the original report and [...] error, please notify the sender immediately at [phone] and permanently delete the original report and destroy any copies or printouts. [facility] CT Abdomen and Pelvis W cont rast IVOrdered By: Avinash Miller on 04-01-[address] [facility] [address] Chest W contrast Jason [...] 1. No evidence for intrathoracic metastatic disease [facility] CT Chest W contrast IVOrdere d By: Yovany Bills on 03-31-2022 [facility] Work Phone: No Panel Informationon 03-31 Radiology Study observation (narrative) [facility] CBC AND ELECTRONIC DIFFon Basophils (Bld) [#/Vol] 0.05 10*3/uL 0.00 - 0.15 K/uL [facility] Basophils/100 WBC (Bld) 0.6 % [facility] Differential cell count method Nom (Bld) Electronic Differential [facility] Eosinophils (Bld) [#/Vol] 0.07 10*3/uL 0.00 - 0.42 K/uL [facility] Eosinophils/100 WBC (Bld) 0.8 % [facility] Erythrocyte distribution width (RBC) [Ratio] 13.4 % 10.8 - 14.9 % [facility] Hematocrit (Bld) [Volume fraction] 37.9 % 34.9 - 44.3 % [facility] Hemoglobin (Bld) [Mass/Vol] 11.9 g/dL 11.4 - 15.2 g/dL [facility] Immature granulocytes (Bld) [#/Vol] 0.04 10*3/uL <=0.08 [facility] Immature granulocytes/100 WBC (Bld) 0.5 % [facility] Interpretation and review of laboratory results Abnormal [facility] Lymphocytes (Bld) [#/Vol] 2.33 10*3/uL 1.16 - 3.51 K/uL [facility] Lymphocytes/100 WBC (Bld) 27.4 % [facility] MCH (RBC) [Entitic mass] 26.3 pg 25.9 - 33.9 pg [facility] MCHC (RBC) [Mass/Vol] 31.4 g/dL 31.4 - 35.9 g/dL [facility] MCV (RBC) [Entitic vol] 83.8 fL 79.6 - 97.7 fL [facility] Monocytes (Bld) [#/Vol] 0.46 10*3/uL 0.22 - 0.87 K/uL [facility] Monocytes/100 WBC (Bld) 5.4 % [facility] Neutrophils (Bld) [#/Vol] 5.55 10*3/uL 1.64 - 7.28 K/uL [facility] Nucleated RBC/100 WBC (Bld) [Ratio] 0.0 % <=0.2 /100 WBC [facility] Platelet mean volume (Bld) [Entitic vol] 10.0 fL 8.5 - 12.2 fL [facility] Platelets (Bld) [#/Vol] 402 10*3/uL High 150 - 393 K/uL [facility] RBC (Bld) [#/Vol] 4.52 10*6/uL [facility] Segmented neutrophils/100 WBC (Bld) 65.3 % [facility] WBC (Bld) [#/Vol] 8.50 10*3/uL 3.99 - 11. 19 K/uL [facility] COMPREHENSIVE METABOLIC PANE Shamir 03-19-2022 Albumin [Mass/Vol] 4.5 g/dL 3.5 - 5.0 g/dL [facility] ALP [Catalytic activity/Vol] 67 U/L 32 - 126 U/L [facility] ALT [Catalytic activity/Vol] 15 U/L 9 - 48 U/L [facility] Anion gap [Moles/Vol] 16 mmol/L 7 - 17 mmol/L [facility] AST [Catalytic activity/Vol] 14 U/L 10 - 39 U/L [facility] Bilirubin [Mass/Vol] 0.4 mg/dL <1.5 [facility] Calcium [Mass/Vol] 9.8 mg/dL 8.6 - 10. 5 mg/dL [facility] Chloride [Moles/Vol] 100 mmol/L 98 - 10 8 mmol/L [facility] CO2 [Moles/Vol] 27 mmol/L 21 - 31 mmol/L [facility] Creatinine [Mass/Vol] 0.66 mg/dL 0.50 - 1.20 mg/dL [facility] GFR/1.73 sq M.predicted CKD-EPI (S/P/Bld) [Vol rate/Area] >90 >=60 mL/min/1.73m2 [facility] Comment on above: Reported eGFR is bas ed on the CKD-EPI 2020 equation using creatinine, age, and sex. Glucose [Mass/Vol] 73 mg/dL 70 - 99 mg/dL [facility] Osmolality Calc [Osmolality] 287 [facility] Potassium [Moles/Vol] 3.6 mmol/L 3.5 - 5.0 mmol/L [facility] Protein [Mass/Vol] 7.4 g/dL 6.4 - 8.3 g/dL [facility] Sodium [Moles/Vol] 139 mmol/L 135 - 145 mmol/L [facility] Urea nitrogen [Mass/Vol] 10 mg/dL 7 - 25 mg/dL [facility] Urea nitrogen/Creatinine [Mass ratio] 15 mg/mg [facility] PT,INR,PTTon 03-19-2022 aPTT Coag (PPP) [Time] 36.5 s High [facility] INR Coag (Bld) [Relative time] 1.2 {INR} High [facility] Interpretation and review of laboratory results Abnormal [facility] PT Coag (PPP) [Time] 14.6 s High [facility] CBC AUTO DIFFon 02-03-2022 BASO # 0.1 103/ul Normal 0.0-0.1 [facility] Comment on above: Performed By: #### L IVER, LDH, BMP #### [facility] [address] [place] [address] [address] Esthela Stevens Basophils/100 WBC (Bld) 0.5 % Normal 0.2-2.0 [facility] Comment on above: Performed By: #### L IVER, LDH, BMP #### [facility] [address], [place] [address] Dr. Esthela Stevens EO # 0.1 103/ul Normal 0.0-0.7 [facility] Comment on above: Performed By: #### L IVER, LDH, BMP #### [facility] [address] [address] [address] Esthela Stevens Eosinophils/100 WBC (Bld) 1.2 % Normal 0.9-7.0 [facility] Comment on above: Performed By: #### L IVER, LDH, BMP #### [facility] [address] [place] [address] Dr. Esthela Stevens Erythrocyte distribution width (RBC) [Ratio] 13.2 % Normal 11.0-15.0 [facility] Comment on above: Performed By: #### L IVER, LDH, BMP #### [facility] [address] [place] [address] Dr. Esthela Stevens Hematocrit (Bld) [Volume fraction] 38.4 % Normal 36.0-48.0 [facility] Comment on above: Performed By: #### L IVER, LDH, BMP #### [facility] [address] [place] [address] Dr. Esthela Stevens Hemoglobin (Bld) [Mass/Vol] 12.2 g/dL Normal 12.0-16.0 [facility] Comment on above: Performed By: #### L IVER, LDH, BMP #### [facility] [address] [place] [address] Dr. Esthela Stevens IG # 0.06 10e3/ul Critically high 0.00-0.03 [facility] Comment on above: Performed By: #### L IVER, LDH, BMP #### [facility] [address] [place] [address] Dr. Esthela Stevens IG % 0.6 % Critically high 0.0-0.5 [facility] Comment on above: Performed By: #### L IVER, LDH, BMP #### [facility] [address] [place] [address] Dr. Esthela Stevens LYMPH # 2.1 103/ul Normal 1.2-3.8 [facility] Comment on above: Performed By: #### L IVER, LDH, BMP #### [facility] [address] [address] [address] Esthela Stevens Lymphocytes/100 WBC (Bld) 21.7 % Normal 20.5-60.0 [facility] Comment on above: Performed By: #### L IVER, LDH, BMP #### [facility] [address] [address] [address] Esthela Stevens MANUAL DIFF REQ NO Normal [facility] Comment on above: Performed By: #### L IVER, LDH, BMP #### [facility] [address] [place] [address] Dr. Esthela Stevens MCH (RBC) [Entitic mass] 26.5 pg Critically low 26.7-34.0 [facility] Comment on above: Performed By: #### L IVER, LDH, BMP #### [facility] [address] [place] [address] Dr. Esthela Stevens MCHC (RBC) [Mass/Vol] 31.8 g/dL Normal 29.9-35.2 [facility] Comment on above: Performed By: #### L IVER, LDH, BMP #### [facility] [address] [address] [address] Esthela Stevens MCV (RBC) [Entitic vol] 83.5 fL Normal 81.0-99.0 [facility] Comment on above: Performed By: #### L IVER, LDH, BMP #### [facility] [address] [place] [address] Dr. Esthela Stevens MONO # 0.7 103/ul Normal 0.3-0.8 [facility] Comment on above: Performed By: #### L IVER, LDH, BMP #### [facility] [address] [place] [address] Dr. Esthela Stevens Monocytes/100 WBC (Bld) 7.5 % Normal 1.7-12.0 [facility] Comment on above: Performed By: #### L IVER, LDH, BMP #### [facility] [address] [address] [address] Esthela Stevens NEUT # 6.8 103/ul Critically high 1.4-6.5 [facility] Comment on above: Performed By: #### L IVER, LDH, BMP #### [facility] [address] [place] [address] Dr. Esthela Stevens Neutrophils/100 WBC (Bld) 68.5 % Normal 43.0-75.0 [facility] Comment on above: Performed By: #### L IVER, LDH, BMP #### [facility] [address] [place] [address] Dr. Esthela Stevens Platelet mean volume (Bld) [Entitic vol] 9.4 fL Critically low 9.5-13.5 [facility] Comment on above: Performed By: #### L IVER LDH, BMP #### [facility] [address] [place] [address] Dr. Esthela Stevens PLT 403 103/ul Normal 150-450 [facility] Comment on above: Performed By: #### L IVER, LDH, BMP #### [facility] [address] [place] [address] Dr. Esthela Stevens RBC 4.60 106/ul Normal 4.20-5.40 [facility] Comment on above: Performed By: #### L IVER LDH, BMP #### [facility] [address] [place] [address] Dr. Esthela Stevens WBC 9.9 103/ul Normal 4.0-11.0 [facility] Comment on above: Performed By: #### L IVER, LDH, BMP #### [facility] [address] [place] [address] ABD/PELV W CONon [...] CAROLYN WALSH Date: 2022-02-03 12:14 Normal [facility] Covid-19 PCR (CVDTBH)on 01-16 SARS-CoV-2 (COVID-19) RNA JORGE LUIS+probe Ql (Unsp spec) Not detected Normal NOT DETECTED [facility] Comment on above: Result Comment: When [...] for this test is supported by the [place] of Health and Human Service's declaration that [...] By: #### L IVER, LDH, BMP #### [facility] [address] [place] [address] Dr. Esthela Stevens ER URINE PROFILEon 2 Bilirubin Ql (U) Negative Normal NEGATIVE [facility] Comment on above: Performed By: #### Toñito SANCHEZ UMICRO #### [facility] [address] [place] [address] Dr. Esthela Stevens Clarity (U) CLEAR Normal CLEAR [facility] Comment on above: Performed By: #### E LAURA UMICRO #### [facility] [address] [place] [address] Dr. Esthela Stevens Color (U) LT. YELLOW Normal YELLOW [facility] Comment on above: Performed By: #### E LAURA UMICRO #### [facility] [address] [place] [address] Dr. Esthela ARGUELLES A micrscopic examination will be performed if indicated. Normal [facility] Comment on above: Performed By: #### Toñito SANCHEZ UMICRO #### [facility] [address] [place] [address] Dr. Esthela Stevens Glucose Ql (U) Negative Normal NEGATIVE [facility] Comment on above: Performed By: #### Toñito SANCHEZ UMICRO #### [facility] [address] [place] [address] Dr. Esthela Stevens Hemoglobin Ql (U) Negative Normal NEGATIVE [facility] Comment on above: Performed By: #### Toñito SANCHEZ UMICRO #### [facility] [address] [place] [address] Dr. Esthela Stevens Ketones Ql (U) Negative Normal NEGATIVE [facility] Comment on above: Performed By: #### Toñito SANCHEZ UMICRO #### [facility] [address] [place] [address] Dr. Esthela Stevens LEUKOCYTES SMALL Abnormal NEGATIVE [facility] Comment on above: Performed By: #### Toñito SANCHEZ UMICRO #### [facility] [address] [place] [address] Dr. Esthela Stevens Nitrite Ql (U) Negative Normal NEGATIVE [facility] Comment on above: Performed By: #### Toñito KIRKR UMICRO #### [facility] [address] [address] [address] Esthela Stevens pH (U) 7.0 [pH] Normal 5-9 [facility] Comment on above: Performed By: #### ERUM WALLACERO #### [facility] [address] [place] [address] Dr. Esthela Stevens SPEC GRAVITY 1.015 Normal 1.005-<=1.025 [facility] Comment on above: Performed By: #### ERUM WALLACERO #### [facility] [address] [place] [address] Dr. Esthela Stevens UA PROTEIN Negative Normal NEGATIVE/ TRACE [facility] Comment on above: Performed By: #### ERUM WALLACERO #### [facility] [address] [place] [address] Dr. Esthela Stevens UR MICRO IND INDICATED Normal [facility] Comment on above: Performed By: #### ERUM WALLACERO #### [facility] [address] [place] [address] Dr. Esthela Stevens Urobilinogen Qn (U) 0.2 {Emeka'U}/dL Normal 0.2 - 1. 0 [facility] Comment on above: Performed By: #### ERUM WALLACERO #### [facility] [address] [place] [address] Dr. Esthela Stevens LACTATE/LACTIC ACIDon 2021 Lactate [Moles/Vol] 1.3 mmol/L Normal 0.4-1.9 [facility] Comment on above: Performed By: #### P REG #### [facility] [address] [place] [address] Dr. Esthela Stevens LIPASEon 02-03-2022 Lipase [Catalytic activity/Vol] 58.0 U/L Critically low 73.0-393.0 [facility] Comment on above: Performed By: #### L IPA, CMP #### [facility] [address] [place] [address] Dr. Esthela Stevens PREG HCG QUALon 02-03-2022 , QUAL Negative Normal NEGATIVE [facility] Comment on above: Performed By: #### L IVER, LDH, BMP #### [facility] [address] [address] [address] Esthela Stevens PROF 14(COMP METB)on 022 Albumin [Mass/Vol] 3.8 g/dL Normal 3.4-5.0 [facility] Comment on above: Performed By: #### L IPA, CMP #### [facility] [address] [address] [address] Esthela Stevens Albumin/Globulin [Mass ratio] 1.0 {ratio} Normal [facility] Comment on above: Performed By: #### L IPA, CMP #### [facility] [address] [place] [address] Dr. Esthela Stevens ALP [Catalytic activity/Vol] 75 U/L Normal 46-116 [facility] Comment on above: Performed By: #### L IPA, CMP #### [facility] [address] [place] [address] Dr. Esthela Stevens ALT [Catalytic activity/Vol] 37 U/L Normal 14-59 [facility] Comment on above: Performed By: #### L IPA, CMP #### [facility] [address] [place] [address] Dr. Esthela Stevens Anion gap [Moles/Vol] 14.0 mmol/L Normal [facility] Comment on above: Performed By: #### L IPA, CMP #### [facility] [address] [address] [address] Esthela Stevens AST [Catalytic activity/Vol] 14 U/L Critically low 15-37 [facility] Comment on above: Performed By: #### L IPA, CMP #### [facility] [address] [address] [address] Esthela Stevens Bilirubin [Mass/Vol] 0.2 mg/dL Normal 0.2-1.0 [facility] Comment on above: Performed By: #### L IPA, CMP #### [facility] [address] [address] [address] Esthela Stevens Calcium [Mass/Vol] 8.9 mg/dL Normal 8.5-10.1 [facility] Comment on above: Performed By: #### L IPA, CMP #### [facility] [address] [place] [address] Dr. Esthela Stevens Chloride [Moles/Vol] 103 mmol/L Normal 98-107 [facility] Comment on above: Performed By: #### L IPA, CMP #### [facility] [address] [place] [address] Dr. Esthela Stevens CO2 [Moles/Vol] 25.2 mmol/L Normal 21.0-32.0 [facility] Comment on above: Performed By: #### L IPA, CMP #### [facility] [address] [place] [address] Dr. Esthela Stevens Creatinine [Mass/Vol] 0.72 mg/dL Normal 0.55-1.02 [facility] Comment on above: Performed By: #### L IPA, CMP #### [facility] [address] [place] [address] Dr. Esthela Stevens EGFR-AF BENINESE >60 Normal >=60 [facility] Comment on above: Performed By: #### L IPA, CMP #### [facility] [address] [place] [address] Dr. Esthela Stevens EGFR-NON AF BENINESE >60 Normal >=60 [facility] Comment on above: Performed By: #### L IPA, CMP #### [facility] [address] [place] [address] Dr. Esthela Stevens Globulin (S) [Mass/Vol] 3.7 g/dL Normal [facility] Comment on above: Performed By: #### L IPA, CMP #### [facility] [address] [place] [address] Dr. Esthela Stevens Glucose [Mass/Vol] 101 mg/dL Normal 74-106 [facility] Comment on above: Performed By: #### L IPA, CMP #### [facility] [address] [place] [address] Dr. Esthela Stevens Potassium [Moles/Vol] 4.2 mmol/L Normal 3.5-5.1 [facility] Comment on above: Performed By: #### L IPA, CMP #### [facility] [address] [place] [address] Dr. Esthela Stevens Protein [Mass/Vol] 7.5 g/dL Normal 6.4-8.2 [facility] Comment on above: Performed By: #### L IPA, CMP #### [facility] [address] [place] [address] Dr. Esthela Stevens Sodium [Moles/Vol] 138 mmol/L Normal 136-145 [facility] Comment on above: Performed By: #### L IPA, CMP #### [facility] [address] [place] [address] Dr. Esthela Stevens Urea nitrogen [Mass/Vol] 11.0 mg/dL Normal 7.0-18.0 [facility] Comment on above: Performed By: #### L IPA, CMP #### [facility] [address] [place] [address] Dr. Esthela Stevens Urea nitrogen/Creatinine [Mass ratio] 15.3 mg/mg Normal [facility] Comment on above: Performed By: #### L IPA, CMP #### [facility] [address] [place] [address] Dr. Esthela Stevens URINE MICROSCOPIC ONLYon BACTERIA NONE SEEN Normal NONE SEEN [facility] Comment on above: Performed By: #### E RUR UMICRO #### [facility] [address] [place] [address] Dr. Esthela Stevens Bacteria identified Cx Nom (U) NOT INDICATED Normal [facility] Comment on above: Performed By: #### E RUR, UMICRO #### [facility] [address] [place] [address] Dr. Esthela Stevens CAST NONE SEEN Normal NONE SEEN [facility] Comment on above: Performed By: #### E RUR, UMICRO #### [facility] [address] [place] [address] Dr. Esthela Stevens Crystals LM Nom (Urine sed) NONE SEEN Normal NONE SEEN [facility] Comment on above: Performed By: #### E RUR, ERUMRO #### [facility] [address] [address] [address] Esthela Stevens Epithelial cells LM Ql (Urine sed) FEW Abnormal NONE SEEN /RARE [facility] Comment on above: Performed By: #### Toñito SANCHEZ, UMICRO #### [facility] [address] [address] [address] Esthela Stevens MUCOUS NONE SEEN Normal NONE SEEN [facility] Comment on above: Performed By: #### Toñito SANCHEZ UMICRO #### [facility] [address] [address] [address] Esthela Stevens RBC 0-2 Normal 0-2 [facility] Comment on above: Performed By: #### ERUM WALLACERO #### [facility] [address] [address] [address] Esthela Stevens WBC 2-5 Abnormal NONE SEEN [facility] Comment on above: Performed By: #### Toñito SANCHEZ UMHARVINDERRO #### [facility] [address] [address] [address] Esthela Stevens Test, Urineon Beta HCG ( test) Ql (U) Negative [employer] Other Urinalysis - AUTOMATEDon Appearance (U) clear [employer] Other Bilirubin Ql (U) Negative [employer] Other Color (U) yellow [employer] Other Glucose Ql (U) Negative [employer] Other Hemoglobin Ql (U) Negative [employer] Other Ketones Ql (U) 15 [employer] Other Leukocyte esterase Test strip Ql (U) Negative [employer] Other Nitrite Ql (U) Negative [employer] Other pH (U) 7.0 [pH] [employer] Other Protein Ql (U) Negative [employer] Other Specific gravity (U) [Rel density] 1.020 [employer] Other Urobilinogen (U) [Mass/Vol] 0.2 mg/dL [employer] Other Urinalysis - AUTOMATED [employer] Other Coding Summary.on 02-18-2021 Coding Summary. CD:[id number] Gh0bWw+PGhlYWQ+PE1FV BIsV74njAKxmZ1XA6lZM I0MIMANRVAWOR3ZFF2bv EG8UFurF6JxeuQt RmqyvEZnAP50RMn1XYS2 pUdaEOidhA9apWXmL5b7 UqSzUG95fR25FLieGAAq HmO8GjDbpmsgoSOy O1srUwXbdFRlBqc+PHRh YmxlIHdpZHRoPScxMDAl NnKliTgbJT4uMi2uXNMx LWNvbGxhcHNlOiBj a8hhLAByZHfgOU7pdOed Y7WhhIX4PFEcz9l5Ia69 dHI+TTPdODM3rRcqVVpr m752MaUjm5bfUJX2 zGDgZFggJEM5E38nl5U3 HUHhSQReFFF6fTD4cQ0s iUvuddfkJ5OdpBLzUqX8 VNM0wHRsnW0weAsk gqdtgL4dZfi+X09ZYW9W MNZBGE8CUso5Z3WnRirc dHI+CW35YBUpQQ47ySSf bFNng4rdeYd0JqSy HSIhZDK6iIfjHLclj7Na NFEtI38mwBTwd6G6IQXx vKvdcGZoEsNcgDI2jW3j JTeegpzcq1oorwyl Dqqia3psgq52iA11W90g RLyjOOEpQGZ2ZKZcWHAu nEbuak3jzQ0yHb4+IDxj c5zey2xutGv7EmGm GIXmxnKamVasHLK2r0Je Vk08T7XwxXhhw6EvGxa9 yl29vREgn0D0zHN2EFje WCTjbB8fMZszBaU6 QAUmSiBfmX07sSMrGZkh Zy3twPndwKoePT7oXYVp vmxsOCMndE9pEFAmpGPn aFaoUW9sSRTuyrdg y331HoYwOIP0DMQfrXLl C2JsuD3iNzReYENnTNPm J0PgoNKdQOgjI865PWwh WsS5LNGumfTkK5Ey HIYrkSzfVxA3d5X3Kt4O r0LwdnerEFG7DCkfTQW1 YrEdKlYbFhC0C2InHug9 FIIfiQfqCM5fR4St VVYkcgpknezofGG7MWXs PFHeuE93kIUjPXhmYc2g p2H0a800FNMlSCAphE40 Zr6gjFsjIOJxsZCD vX7orxnto4mkmunwLyPe WJPwGBw4RGs4QZGcnRxm JpBcCBI0NvL3DDY0aAFx dV2lzUiikcespL7p Oyc+L73xbT7xNDT5AMI2 fqjlXKDhjcWzXZ18GP24 X4WvBscohJWgtHZ+PGRp rdRgmKmzDR8mCmJe s5ink6IaAAlaX4LzZBGv RSurEyc0BQMhWZP0bDC7 pK2uWQCgGTeqb6Z0pMS2 E7MgieRgod1nf0pv ELNnWQkaJ31lvRTnq9Z4 DPEcrPU8CWRwkCemLxXm kM62Lzi+RAGyqAsjb8Wi Twmyz7mea6xlwXk6 IjMwJSIgdmFsaWduPSJ0 h8ZtKs44G00tECgxHQKj OGWkSIEzAKBmsMqlpc2i jR1cKy7+PGNvbCB3 gNF3pH0gGDEeCcM4WTvm I875FzBwqPCoQwwty5bs x3wnkSs8CuLpHCQjtjVk tNyuLFO0y9EhQx87 T62qWRtkULLvFZRvVSBn SQJunUdkyz8pxW7kOr9+ FQ0zy6ikoj47zQ84bVX+ WJPsAYR0qBfxFGjr ERHhnV8dDXpmPkS9HWHk YcRjmV69yVCjBHycLe1z iGgkfMnhGJ7yFOMcbygj l761TpUys9mlJMFm kEHmKZhgTXX5V94wx4R9 QIZzAUVbKPV4pTF2yF5o bGlnbjogbGVmdDsgdmVy fQkhUErvRAxwC220 IHRvcDsnPlBhdGllbnQg HbTzZUe0H1QpUsp0FSCb fYlxZU0waXGwBIjySy2b iUfedQemON2sKOGq hgdmy092DoZsd9ggWUZy gCHvKFjqVZZ2H71pd0Q0 XVCqQZBqOTO7oYN5wU5d bGlnbjogbGVmdDsg iaCfzGiwDGiiFFhgL523 IHRvcDsnPkJpcnRoIERh yTS6GH65BI79sYUdx7L0 sTI6N5RrIANhkzdf cekllXP0NMFdGLPvoW29 Nz2vpJgfUj1aNTZtYYY1 KYAflVZeL9JbiV7mZvZx OFHnTCTiV0RvwDBs QHosO653OIxuDjB9TSHt qaYoR8VcOGKmvPeuLxX5 n7C5Rc6LW8J7BP70OP38 xMOgt0T2nLX8E9Co AAAuqpzhprwfgFA3NYPy KEZgpB41Mn3bgMsxYq9c SWGnBJR5DEWnxSMqI8Rr cA8uKrWoAXPbXVIt L6HpwQQiRTwtL489FIbw YjN5IMRkypGrS0PnAFOo cLxfZbJ8j5O3Xi7NHFk1 OI22XH31tGJru4Q5 cKA8K2AdZAEzsfsvgwgl kFY0VMLvPMHhxU05Kh8g rZzvRz2zSGWyQPV3SQFd dTFaS1VzmT9yInEr RLSqWTItL7SxpIIqRBpo X405RXhpHqT5HOMaiaUv C9ToNERqpZdzJyE2a1L0 Zl1ZYSNcSE52CIV1 aJC2WE98ZY96O0DrOioh dGFibGU+PHRhYmxlIHdp ZHRoPScxMDAlJyBzdHls PL3qQp1mRJXtDGDz nVkcfFVnQeRaf8gsORMz SIoeRA8zgIqoU2UeiHC1 OVCqt0p1Le81C88dK2Zi dXA+YJOovDG8uCE9 rF7dUnKoYwP2SXdtC524 IsTykWNlEpnxa8uzf5ml tIm3UhW1LTArzyRfbEeg ABV7g1KrFp32G17c IHdpZHRoPSIxNSUiIHZh zKukxb6tpD0zDd3+PGNv vRK3aZE3uJ5iZqLtNdV1 TZcqH708KkYbkPNe Qaobc1xdv5vthEs6FgEd SGUwvuDbmVtgOZW6y1Ge Pn59F2LfoOhsr0CnKmu8 zc93pIHpe2X9rBY4 J8TrTIPgbbjyfGNdxYiy RD0yWJOsaqouXFGduS1a FHLxH9z7FxDcGvN0CMwy F9JdlsE1KKItsRXv CCuhAIS5R56xp1M7QDFq UKVpAMT3aFC2xS6fyDll bjogbGVmdDsgdmVydGlj WXhbWJkeQ586UNJd rPnrMQHtmK8oIFWzgATv cBplEO7tXPRqggzjCsgM HGkJZjvcK6RUUPPNVQc9 T7DdSmw4QJNmyPje TF2xpGHhNPecSf9vpLpx eAleBR1wKTMcnybtWIWd rG8xTSVqpIPlaGkfJR3b NJVvxwsnp629EjCo QHZ2TCKtuELqF1ThgT3z LuVjXZDeJMWrF7AhaWHp JKpvN104HUtwWsW5FDTp sxMsZ5KzHRFdcVeq ZfS1a9U4Xf6wAO8yON6l NXd1RK61PX36qCDgv1D5 oRX4X3UfFLMakoedhylq uUP1EIOaUFCxtO07 qCWtYBauXv8sy6H2s214 BFMuBLKeeL92Oi6xuEgv GWFrzZKAzG0jelanj4xv cjogIzAwMDAwMDt0 CAx7DBNviBugChJtGZH4 KxX1YZE9gCGbrL5uaJiw bsiiiN8gDef+MjMgWWVh pyU0L9WfUbu7DQVz eMvwWJ1ldJIkGXjtJm5n gIxwpUznSH8fODPlwrqb GGRmzX5kGLNduXEqyMcd IJ7wPRAzfldmu155 MfVvUFG8CVByyTMvI0Mi nU0wLrUtUPFaMAYzN8Td jDHpIKbzP629BQdcCjL9 EWCrtkDkJ9RpQUXo nNwkGqB7f4D3Ry6YDU2u gTO5T4XtGvl4AAXfrZtk XV6ktEPdJHvxFx0yjDls mLzhNZ9kOPZekflz TLVbgZ7cTLVpcEPvaNrf TF8qMLFqwvkri976NcQj QOP4ZAYyhWSwR0BjzI2t LrDuUBDfUBQmV0Fb fBFfWQuoC593DXqwNaF1 ZBDshlQfR2WnZFDevRxr KsC8u1V8Rh7TpBIxU5Eu K4n8K0IbZdgdfNN+ MR89XXDfES71iKMvtJJo u8iduJw9DgOaSZEdCTV4 vBzvYTqxb0MtTPPyB07o gYCcc7P4DOHdvGkt cVIpFnUlcWU2pW8iFRgi buxre1xtfapvVcwkk0ok zp49lG75J04fIBilUBTs PSIzMCUiIHZhbGln ff4qxS1vOy3+PGNvbCB3 bJW5sB7wXtNqGtR1GZpb U749EuPdpZGdDofna8uh n2snsVt6VlNfJPJs pyCihPfyBUS5p9QtGe79 I56tILwgWHOcGAYtMHTd SOZfhYjbml4wuL7uGr0+ IV3qi9jvtl95aN80 dHI+FMMmRVV7hMykAKir RFPrwC8fKKheYrD2FFIr OeDrbR59aWKpUVlwZr2z dRudoWmkXH3aQTUx jwplq537KoAos6vfSDSq zPHgGKwdNDK6X33io6J0 VUSnBTRoLCF2aED4pL0h bGlnbjogbGVmdDsg glQalPemEVnpRDbmK850 UMKsfMnrUoFqrNMpW5cn rfMKHB7yKjvfkCI+PHRk YLK4wKvnNWdpTRRq eS0tAJPqP2v6UsWkCmR4 KJcsJ3QphjO4AWEmxJLw NXWrnSVGjY9bkrzfv4gh cjogIzAwMDAwMDt0 EOi5XSMcpTekKgXtMGU1 TnO8ARH4qHLkeR4rbStn mixjuM3wCix+RklOOjwv dGQ+GCEpUEB8mDir PPjsXQSdcT4tSCDwA4g4 TgRaFlM6ZVggP3HxcxJ7 JSJqsWWtTGAscEMSsG3x wodcj7mbhbplMqVm GQKqXEr5OFi9IAOvdMqd LzGxZIO6CvY8FVQ6fMJk yS2wxRtdgvgxnV8lPbp+ TVJOOjwvdGQ+PHRk WUQ4sRslXDjsZDKmeI5i YMKrX9d5BiEqMsK5ZTvb C3SkmpN6GCBylHNgWTJq mHLBeC4dhvjrc7kk tpqgCxJkINWcXAa9KNj3 KNXjnZhkNfXlAQM9OvL2 WYF6vWTgkK0xsTocwfdq zV2zIhf+IPG1TKH7 PE98TX89C0SvNazazFOx bGU+PHRhYmxlIHdpZHRo IUnmAMQlQhBaqEctHE0d Lg4aQNNjIRWvaKnt cHNl (more content not included)... Normal [facility] Consent for Treatmenton Consent for Treatment [id number] #1.00CD:127 Normal [facility] Discharge Instructionson Discharge Instructions [id number]#1.00CD:127 Normal [facility] ED Clinical Summaryon 2020 ED Clinical Summary [place] [id number] ED Clinical Summary Person Information Name: ZAINAB MCCLURE [facility] Age: 25 Years : 1995 Sex: Female Language: Setswana PCP: ERIN SAMS CNP Marital Status: Single [...] 02/17/2021 11:52:53 02/17/2021 11:52:53 02/17/2021 11:52:53 ADDRESS: [address] [place] [id number] [facility] DOC NOTES: MEDICAL INFORMATION: Prescriptions Given: New Medications Printed Prescriptions lorazepam (Ativan 1 mg Tab) 1 Tablets By Mouth every 8 hours for 2 Days. Take one by mouth every eight hours as needed. Refills: 0. PATIENT EDUCATION INFORMATION: Instructions: Suicidal Feelings: How to Help Yourself; Managing Anxiety, Adult Follow up: With: Address: When: [facility] In 1 day 02/18/2021 With: Address: When: ERIN SAMS [address] [place] [address] [phone] Business (1) In 3 days DIAGNOSIS: Anxiety; Suicidal ideation Normal [facility] ED Note-Physicianon 02-18-20 ED Note-Physician Basic Information Time Seen: Carol Childers DO 02/17/2021 10:02 Chief Complaint Pt [...] Oral, q8hr Follow-up With When Contact Information [facility] In 1 day 02/18/2021 EDT Additional Instructions: ERIN SAMS In 3 days [address] [place] [address]- [phone] Business (1) Additional Instructions: Patient Education Suicidal Feelings: How to Help Yourself Managing Anxiety, Adult Problem List/Past Medical History Ongoing No qualifying data Historical No qualifying data Medications Inpatient No active inpatient medications Home No active home medications Allergies No Known Medication Allergies Lab Results No qualifying data available. Diagnostic Results No qualifying data available. Normal [facility] Comment on above: Result Comment: Elec tronically Signed By: Carol Childers DO\.jim\Date and Time Signed: 02/17/21 11:41 [...] in the [place] ? The [facility] and [facility] services helpline (211 in the [place] ? Go to your nearest emergency department. ? Call a suicide hotline to speak with a trained counselor. The following suicide hotlines are available in the [place]: ? 5-668-356-TALK ( ). ? 4-508-AWKAIFW ( ). ? . This is a hotline for Cymraes speakers. ? . This is a hotline for TTY users. ? 4-916-0-U-RMAILA ( ). This is a hotline for lesbian, escobar, bisexual, transgender, or questioning youth. ? For a list of hotlines in [place], visit www.suicide.org/hotl zeferino/international/c aftin-qdkyqec-fxhohf es.html ? Contact a crisis center or [...] list of crisis centers in [place], visit: suicideprevention.nh How to help yourself feel better ? [...] even if you do not feel sociable. Uuld-lp-xuuy conversation is best to help them understand [...] can help you feel better. ? Take qioz-ekl-psdszzs and prescription medicines only as told by [...] Lifeline: www.suicidepreventio nlifeline.org ? Hopeline: www.hopeline.com ? [place] [employer] for Suicide Prevention: www.afsp.org ? The Ramila Project (for lesbian, escobar, bisexual, transgender, or questioning youth): www.thetrevorproject .org Contact a health care provider if: ? You feel as though you are a burden to others. ? You feel agitated, angry, vengeful, or have extreme mood swings. ? You have withdrawn from family and friends. Get (more content not included)... Normal [facility] ED Patient Summaryon 021 ED Patient Summary [place] [id number] Patient Discharge Instructions Person Information Name: ZAINAB MCCLURE Age: 25 Years Arrival Date: 02/17/2021 09:42:11 Discharge Diagnosis: Anxiety; Suicidal ideation Primary Care Physician: ERIN SAMS CNP Provider Information Primary Provider: Carol Childers DO Advanced Supervisor [employer] Finishing:None The exam and treatment you received in the Emergency Department were for an urgent problem and are not intended as complete care. It is important that you follow up with a doctor, nurse practitioner, or physician?s occupational therapist assistants for ongoing care. If your symptoms become worse or you do not improve as expected and you are unable to reach your usual health care provider, you should return to the Emergency Department. We are available 24 hours a day. ZAINAB MCCLURE has been given the following list of patient education materials, prescriptions and follow-up instructions: Follow-up Instructions: With: Address: When: [facility] In 1 day 02/18/2021 With: Address: When: ERIN SAMS [address] [address] [phone] Business (1) In 3 days In the [...] opioids can be used to help relieve arkuygsa-eg-zdxzmj pain and are often prescribed following a [...] care professio (more content not included)... Normal [facility] Valuables Checkliston 2020 Valuables Checklist [id number] 6#1.00CD:127 Normal [facility] Vital Signs Date Time Vital Sign Value Performing Clinician Facility 11-26-2023 09:32-0400 Body height 154.9 cm Dolores Johnson BRIDAL SALES CONSULTANT-CLINICAL RESEARCH NURSE Work Phone: [facility] 11-26-2023 09:32-0400 Body mass index (BMI) [Ratio] 30.61 kg/m2 Dolores Johnson BRIDAL SALES CONSULTANT-CLINICAL RESEARCH NURSE Work Phone: [facility] 11-26-2023 09:32-0400 Body weight 73.48 kg Dolores Johnson BRIDAL SALES CONSULTANT-CLINICAL RESEARCH NURSE Work Phone: [facility] 11-26-2023 09:32-0400 Diastolic blood pressure 76 mm[Hg] Dolores Johnson BRIDAL SALES CONSULTANT-CLINICAL RESEARCH NURSE Work Phone: [facility] 11-26-2023 09:32-0400 Heart rate 65 /min Dolores Johnson BRIDAL SALES CONSULTANT-CLINICAL RESEARCH NURSE Work Phone: [facility] 11-26-2023 09:32-0400 Respiratory rate 16 /min Dolores Johnson BRIDAL SALES CONSULTANT-CLINICAL RESEARCH NURSE Work Phone: [facility] 11-26-2023 09:32-0400 SaO2% (BldA) [Mass fraction] 98 % Dolores Johnson BRIDAL SALES CONSULTANT-CLINICAL RESEARCH NURSE Work Phone: [facility] 11-26-2023 09:32-0400 Systolic blood pressure 110 mm[Hg] Dolores Johnson BRIDAL SALES CONSULTANT-CLINICAL RESEARCH NURSE Work Phone: [facility] 08-24-2023 10:09-0500 Body mass index (BMI) [Ratio] 32.44 kg/m2 Ron Alden DO Work Phone: [facility] 08-24-2023 10:09-0500 Body weight 83.06 kg Ron Alden DO Work Phone: [facility] 08-24-2023 10:09-0500 Diastolic blood pressure 68 mm[Hg] Ron Alden DO Work Phone: [facility] 08-24-2023 10:09-0500 Systolic blood pressure 110 mm[Hg] Ron Alden DO Work Phone: [facility] 03-11-2023 09:53-0400 Body height 154.9 cm Farshad Vigil BRIDAL SALES CONSULTANT-CLINICAL RESEARCH NURSE Work Phone: [facility] 12-10-2022 12:07-0400 Body height 155.2 cm Suman Baker MD, PhD Work Phone: [facility] Comment on above: without shoes 12-10-2022 12:07-0400 Body mass index (BMI) [Ratio] 30.64 kg/m2 Suman Baker MD, PhD Work Phone: [facility] 12-10-2022 12:07-0400 Body temperature 97.81 [degF] Suman Baker MD, PhD Work Phone: [facility] 12-10-2022 12:07-0400 Body weight 73.8 kg Suman Baker MD, PhD Work Phone: [facility] Comment on above: without shoes 12-10-2022 12:07-0400 Diastolic blood pressure 72 mm[Hg] Suman Baker MD, PhD Work Phone: [facility] 12-10-2022 12:07-0400 Heart rate 77 /min Suman Baker MD, PhD Work Phone: [facility] 12-10-2022 12:07-0400 Respiratory rate 14 /min Suman Baker MD, PhD Work Phone: [facility] 12-10-2022 12:07-0400 SaO2% (BldA) [Mass fraction] 99 % Suman Baker MD, PhD Work Phone: [facility] Comment on above: room air 12-10-2022 12:07-0400 Systolic blood pressure 118 mm[Hg] Suman Baker MD, PhD Work Phone: [facility] 10-22-2022 13:57-0400 Body height 154.9 cm Rebekah Suero MD Work Phone: [facility] 10-22-2022 13:57-0400 Body mass index (BMI) [Ratio] 30.33 kg/m2 Rebekah Suero MD Work Phone: [facility] 10-22-2022 13:57-0400 Body temperature 97.59 [degF] Rebekah Suero MD Work Phone: [facility] 10-22-2022 13:57-0400 Body weight 72.8 kg Rebekah Suero MD Work Phone: [facility] 10-22-2022 13:57-0400 Diastolic blood pressure 62 mm[Hg] Rebekah Suero MD Work Phone: [facility] 10-22-2022 13:57-0400 Heart rate 62 /min Rebekah Suero MD Work Phone: [facility] 10-22-2022 13:57-0400 Respiratory rate 20 /min Rebekah Suero MD Work Phone: [facility] 10-22-2022 13:57-0400 SaO2% (BldA) [Mass fraction] 99 % Rebekah Suero MD Work Phone: [facility] 10-22-2022 13:57-0400 Systolic blood pressure 119 mm[Hg] Rebekah Suero MD Work Phone: [facility] 10-22-2022 10:19-0400 Body height 157.5 cm Yudelka Moralez BRIDAL SALES CONSULTANT-CLINICAL RESEARCH NURSE Work Phone: [facility] 10-22-2022 10:19-0400 Body mass index (BMI) [Ratio] 28.66 kg/m2 Yudelka Moralez BRIDAL SALES CONSULTANT-CLINICAL RESEARCH NURSE Work Phone: [facility] 10-22-2022 10:19-0400 Body weight 71.1 kg Yudelka Moralez BRIDAL SALES CONSULTANT-CLINICAL RESEARCH NURSE Work Phone: [facility] 10-22-2022 10:19-0400 Diastolic blood pressure 76 mm[Hg] Yudelka Moralez BRIDAL SALES CONSULTANT-CLINICAL RESEARCH NURSE Work Phone: [facility] 10-22-2022 10:19-0400 Systolic blood pressure 126 mm[Hg] Yudelka Moralez BRIDAL SALES CONSULTANT-CLINICAL RESEARCH NURSE Work Phone: [facility] 10-22-2022 07:38-0400 Body height 157.5 cm Yudelka Moralez BRIDAL SALES CONSULTANT-CLINICAL RESEARCH NURSE Work Phone: [facility] 10-22-2022 07:38-0400 Diastolic blood pressure 76 mm[Hg] Yudelka Moralez BRIDAL SALES CONSULTANT-CLINICAL RESEARCH NURSE Work Phone: [facility] 10-22-2022 07:38-0400 Heart rate 73 /min Yudelka Moralez BRIDAL SALES CONSULTANT-CLINICAL RESEARCH NURSE Work Phone: [facility] 10-22-2022 07:38-0400 Systolic blood pressure 126 mm[Hg] Yudelka Moralez BRIDAL SALES CONSULTANT-CLINICAL RESEARCH NURSE Work Phone: [facility] 10-07-2022 11:05-0400 Body height 157.5 cm Yudelka Moralez BRIDAL SALES CONSULTANT-CLINICAL RESEARCH NURSE Work Phone: [facility] 10-07-2022 11:05-0400 Body mass index (BMI) [Ratio] 28.66 kg/m2 Yudelka Moralez BRIDAL SALES CONSULTANT-CLINICAL RESEARCH NURSE Work Phone: [facility] 10-07-2022 11:05-0400 Body temperature 98.2 [degF] Yudelka Moralez BRIDAL SALES CONSULTANT-CLINICAL RESEARCH NURSE Work Phone: [facility] 10-07-2022 11:05-0400 Body weight 71.08 kg Yudelka Moralez BRIDAL SALES CONSULTANT-CLINICAL RESEARCH NURSE Work Phone: [facility] 10-07-2022 11:05-0400 Diastolic blood pressure 74 mm[Hg] Yudelka Moralez BRIDAL SALES CONSULTANT-CLINICAL RESEARCH NURSE Work Phone: [facility] 10-07-2022 11:05-0400 Heart rate 81 /min Yudelka Moralez BRIDAL SALES CONSULTANT-CLINICAL RESEARCH NURSE Work Phone: [facility] 10-07-2022 11:05-0400 Respiratory rate 16 /min Yudelka Moralez BRIDAL SALES CONSULTANT-CLINICAL RESEARCH NURSE Work Phone: [facility] 10-07-2022 11:05-0400 SaO2% (BldA) [Mass fraction] 99 % Yudelka Moralez BRIDAL SALES CONSULTANT-CLINICAL RESEARCH NURSE Work Phone: [facility] 10-07-2022 11:05-0400 Systolic blood pressure 120 mm[Hg] Yudelka Moralez BRIDAL SALES CONSULTANT-CLINICAL RESEARCH NURSE Work Phone: [facility] 08-19-2022 15:43-0500 Diastolic blood pressure 88 mm[Hg] Andreas Ortega MD, MPH Work Phone: [facility] 08-19-2022 15:43-0500 Systolic blood pressure 117 mm[Hg] Andreas Ortega MD, MPH Work Phone: [facility] 07-08-2022 07:50-0500 Body height 157.5 cm Andreas Ortega MD, MPH Work Phone: [facility] 07-08-2022 07:50-0500 Body mass index (BMI) [Ratio] 28.73 kg/m2 Andreas Ortega MD, MPH Work Phone: 8(422)326-903297 [address] 07-08-2022 07:50-0500 Body temperature 98.01 [degF] Andreas Ortega MD, MPH Work Phone: 8(873)043-505697 [address] 07-08-2022 07:50-0500 Body weight 71.26 kg Andreas Ortega MD, MPH Work Phone: 6(471)457-201492 [place] [address] 07-08-2022 07:50-0500 Diastolic blood pressure 77 mm[Hg] Andreas Ortega MD, MPH Work Phone: 4(490)287-092692 [place] [address] 07-08-2022 07:50-0500 Heart rate 73 /min Andreas Ortega MD, MPH Work Phone: 6(895)807-550597 [address] 07-08-2022 07:50-0500 Respiratory rate 16 /min Andreas Ortega MD, MPH Work Phone: 2(267)078-640792 [place] [address] 07-08-2022 07:50-0500 SaO2% (BldA) [Mass fraction] 98 % Andreas Ortega MD, MPH Work Phone: [facility] 07-08-2022 07:50-0500 Systolic blood pressure 121 mm[Hg] Andreas Ortega MD, MPH Work Phone: [facility] 06-09-2022 13:10-0500 Body mass index (BMI) [Ratio] 29.3 kg/m2 Raina Gomes BRIDAL SALES CONSULTANT-CLINICAL RESEARCH NURSE Work Phone: [facility] 06-09-2022 13:10-0500 Body temperature 98.6 [degF] Raina Gomes BRIDAL SALES CONSULTANT-CLINICAL RESEARCH NURSE Work Phone: [facility] 06-09-2022 13:10-0500 Body weight 72.67 kg [facility] Work Phone: [facility] 06-09-2022 13:10-0500 Diastolic blood pressure 60 mm[Hg] [facility] Work Phone: [facility] 06-09-2022 13:10-0500 Heart rate 80 /min [facility] Work Phone: [facility] 06-09-2022 13:10-0500 Respiratory rate 16 /min [facility] Work Phone: [facility] 06-09-2022 13:10-0500 SaO2% (BldA) [Mass fraction] 98 % Raina [facility] Work Phone: [facility] 06-09-2022 13:10-0500 Systolic blood pressure 110 mm[Hg] [facility] Work Phone: [facility] 05-29-2022 07:32-0500 Body temperature 98.01 [degF] Suman Baker MD, PhD Work Phone: [facility] 05-29-2022 07:32-0500 Diastolic blood pressure 64 mm[Hg] Suman Baker MD, PhD Work Phone: [facility] 05-29-2022 07:32-0500 Heart rate 77 /min Suman Baker MD, PhD Work Phone: [facility] 05-29-2022 07:32-0500 Respiratory rate 16 /min Suman Baker MD, PhD Work Phone: [facility] 05-29-2022 07:32-0500 SaO2% (BldA) [Mass fraction] 99 % Suman Baker MD, PhD Work Phone: [facility] 05-29-2022 07:32-0500 Systolic blood pressure 100 mm[Hg] Suman Baker MD, PhD Work Phone: 9(129)129-267378 [address] 05-22-2022 15:50-0400 Body height 157.5 cm Suman Baker MD, PhD Work Phone: 9(741)[phone] [address] 05-22-2022 15:50-0400 Body mass index (BMI) [Ratio] 30.73 kg/m2 Suman Baker MD, PhD Work Phone: 1(800)361-680178 [address] 05-22-2022 15:50-0400 Body weight 76.2 kg Suman Baker MD, PhD Work Phone: 4(950)383-460155 [place] [address] 03-31-2022 12:02-0400 Diastolic blood pressure 70 mm[Hg] [facility] BRIDAL SALES CONSULTANT-CLINICAL RESEARCH NURSE Work Phone: 1(966)176-782455 [place] [address] 03-31-2022 12:02-0400 Systolic blood pressure 124 mm[Hg] [facility] BRIDAL SALES CONSULTANT-CLINICAL RESEARCH NURSE Work Phone: 3(293)578-270055 [place] [address] 03-31-2022 11:53-0400 Body height 157.5 [facility] BRIDAL SALES CONSULTANT-CLINICAL RESEARCH NURSE Work Phone: 4(236)508-905378 [address] 03-19-2022 15:37-0400 Body height 158.3 cm Suman Baker MD, PhD Work Phone: 4(203)672-921455 [place] [address] 03-19-2022 15:37-0400 Body mass index (BMI) [Ratio] 30.63 kg/m2 Suman Baker MD, PhD Work Phone: 5(744)377-980955 [place] [address] 03-19-2022 15:37-0400 Body temperature 97.5 [degF] uSman Baker MD, PhD Work Phone: 1(785)849-109878 [address] 03-19-2022 15:37-0400 Body weight 76.75 kg Suman Baker MD, PhD Work Phone: [facility] 03-19-2022 15:37-0400 Diastolic blood pressure 84 mm[Hg] Suman Baker MD, PhD Work Phone: [facility] 03-19-2022 15:37-0400 Heart rate 90 /min Suman Baker MD, PhD Work Phone: [facility] 03-19-2022 15:37-0400 Respiratory rate 16 /min Suman Baker MD, PhD Work Phone: [facility] 03-19-2022 15:37-0400 SaO2% (BldA) [Mass fraction] 98 % Suman Baker MD, PhD Work Phone: [facility] 03-19-2022 15:37-0400 Systolic blood pressure 128 mm[Hg] Suman Baker MD, PhD Work Phone: [facility] 12-22-2021 18:05-0400 Body height 152.4 cm Ava Hooverault Other [employer] Other 12-22-2021 18:05-0400 Body mass index (BMI) [Ratio] 30.62 kg/m2 Ava Hooverault Other [employer] Other 12-22-2021 18:05-0400 Body temperature 99 [degF] Ava Tamika Other [employer] Other 12-22-2021 18:05-0400 Body weight 71.12 kg Ava Tamika Other [employer] Other 12-22-2021 18:05-0400 Diastolic blood pressure 89 mm[Hg] Ava Tamika Other [employer] Other 12-22-2021 18:05-0400 Respiratory rate 16 /min Ava Lundberg Other [employer] Other 12-22-2021 18:05-0400 SaO2% (BldA) [Mass fraction] 99 % Ava Lundberg Other [employer] Other 12-22-2021 18:05-0400 Systolic blood pressure 129 mm[Hg] Ava Lundberg Other [employer] Other Encounters Encounter Date Encounter Type Care Provider Facility Start: 01-19-2024 ambulatory ERIN SAMS Facilit y:[facility] Start: 01-06-2024 ambulatory CAROL SUMMERS Facility:[facility] Start: 12-30-2023 [facility]ulatory [facility] Start: 11-26-2023 ambulatory YUDELKA MORALEZ Facility:[facility] Start: 11-26-2023 End: 11-26-2023 Office outpatient new 45 minutes Dolores Johnson BRIDAL SALES CONSULTANT-CLINICAL RESEARCH NURSE Work Phone: [facility] [place] Comment on above: Elevated liver enzym es (Primary Dx) Start: 11-26-2023 ambulatory ERIN SAMS Facilit y:[facility] Start: 11-11-2023 End: 11-11-2023 ambulatory LIZBET CAST Not Available Start: 11-08-2023 ambulatory YUDELKA MORALEZ Facility:[facility] Start: 11-06-2023 End: 11-06-2023 Subsequent hospital visit by physician Andreas Ortega MD, MPH Work Phone: [facility] Comment on above: Arrived Start: 11-06-2023 ambulatory ANDREAS ORTEGA Facility: [facility] Start: 10-04-2023 End: 10-04-2023 ambulatory LIZBET CAST Not Available Start: 09-25-2023 End: 09-25-2023 ambulatory Ron Ruano Facility:[facility] Start: 09-20-2023 End: 09-20-2023 ambulatory RON RUANO Not Available Start: 09-13-2023 End: 09-13-2023 ambulatory [...] RON ALDEN Not Available Start: 04-06-2023 ambulatory [facility] Facility: [facility] Start: 03-17-2023 ambulatory [facility] Facility: [facility] Start: 03-11-2023 End: 03-11-2023 Clinical Support Encounter Suman Baker MD, PhD Work Phone: Clinical [facility] 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 Start: 03-11-2023 ambulatory SUMAN BAKER Facility:[facility] Start: 03-11-2023 ambulatory FARSHAD Camejo ility:[facility] Start: 03-11-2023 End: 03-11-2023 Subsequent hospital visit by physician Farshad Vigil BRIDAL SALES CONSULTANT-CLINICAL RESEARCH NURSE Work Phone: Imaging Outpatient [facility] Comment on above: Arrived Start: 12-10-2022 End: 12-10-2022 Office outpatient visit 15 minutes Suman Baker MD, PhD Work Phone: Division of Surgical Oncology 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) Start: 11-30-2022 End: 11-30-2022 ambulatory ERIN SAMS Facility: Start: 10-22-2022 End: 10-22-2022 Office outpatient new 60 minutes Rebekah Suero MD Work Phone: [facility] Comment on above: Fibromyalgia muscle pain (Primary Dx) Start: 10-22-2022 End: 10-22-2022 Subsequent hospital visit by physician Yudelka Moralez APRN-TASH Work Phone: [facility] [place] Start: 10-22-2022 End: 10-22-2022 Subsequent hospital visit by physician Yudelka Moralez APRN-CLINICAL RESEARCH NURSE Work Phone: [facility] [place] Comment on above: Arrived Start: 10-07-2022 End: 10-07-2022 Office outpatient visit 25 minutes Yudelka Moralez APRN-CLINICAL RESEARCH NURSE Work Phone: Division of Medical Oncology Comment [...] medical examination without abnormal findings ERIN SAMS [facility] Start: 08-31-2022 End: 09-01-2022 ambulatory ERIN [...] Subsequent hospital visit by physician Yudelka Moralez BRIDAL SALES CONSULTANT-CLINICAL RESEARCH NURSE Work Phone: [facility] Comment on above: Arrived Start: 08-12-2022 End: 08-12-2022 ambulatory ERINSHAVON SAMS Facility:[facility] Start: 08-05-2022 End: 08-05-2022 ambulatory ERIN LATRELL Facility:[facility] Start: 07-08-2022 End: 07-08-2022 Office consultation new/estab patient 80 min Andreas Ortega MD, MPH Work Phone: Division of Medical Oncology 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 [facility] Start: 04-04-2022 End: 04-05-2022 ambulatory ERIN SAMS Facility:[facility] Start: 04-04-2022 End: 04-05-2022 Encounter for preprocedural laboratory examination ERIN SAMS Facility:[facility] Start: 03-31-2022 End: 03-31-2022 Subsequent hospital visit by physician Raina Gomes BRIDAL SALES CONSULTANT-CLINICAL RESEARCH NURSE Work Phone: [facility] [place] Comment on above: Arrived Start: 03-19-2022 End: [...] 12-22-2021 End: 12-22-2021 ambulatory Ava Lundberg Other [employer] Other Start: 12-22-2021 Office outpatient vi sit 15 minutes Ava Lundberg [facility] Procedures Date Procedure Procedure Detail Performing Clinician Start: 03-11-2023 Mri abdomen w/o cont rast material Yudelka Moralez BRIDAL SALES CONSULTANT-CLINICAL RESEARCH NURSE Work Phone: Start: 10-22-2022 Echo tthrc r-t 2d w/wom-mode compl spec&colr d Yudelka Moralez BRIDAL SALES CONSULTANT-CLINICAL RESEARCH NURSE Work Phone: Start: 10-22-2022 Ct soft tissue neck w/contrast material Yudelka Moralez BRIDAL SALES CONSULTANT-CLINICAL RESEARCH NURSE Work Phone: Start: 10-22-2022 Ct thorax w/contrast material Yudelka Moralez BRIDAL SALES CONSULTANT-CLINICAL RESEARCH NURSE Work Phone: Start: 10-07-2022 Natriuretic peptide Yudelka Moralez BRIDAL SALES CONSULTANT-CLINICAL RESEARCH NURSE Work Phone: Start: 08-19-2022 Creatinine blood Marciano Ortega MD, MPH Work Phone: Start: 08-19-[address] atten uation skull base mid-thigh Yudelka Moralez BRIDAL SALES CONSULTANT-CLINICAL RESEARCH NURSE Work Phone: Start: 05-29-2022 Assay of magnesium [...] Start: 03-31-2022 Ct thorax w/contrast material Raina Kelly Gomes APRN-CLINICAL RESEARCH NURSE Work Phone: Start: 03-19-2022 CBC AND ELECTRONIC DIFF Raina Kelly Gomes BRIDAL SALES CONSULTANT-CLINICAL RESEARCH NURSE Work Phone: Start: 03-19-2022 Complete blood count with white cell differential, automated Raina Kelly Gomes BRIDAL SALES CONSULTANT-CLINICAL RESEARCH NURSE Work Phone: Start: 03-19-2022 Comprehensive metabo lic panel Raina Kelly Gomes APRN-CLINICAL RESEARCH NURSE Work Phone: Plan of Treatment Date Care Activity Detail Author Start: 03-19-2024 Influenza vaccination INFLUENZA VACCINE (Season Ended) [facility] Start: 03-02-2024 End: 03-02-2024 Telemedicine consultation with patient 03/02/2024 9:00 AM EDT Telemedicine [facility] [place] [address] [place] [address] Dolores Johnson, SPENCER-CLINICAL RESEARCH NURSE [address] [place] [address] General [facility] [place] Start: 02-10-2024 End: 02-10-2024 Patient encounter procedure 02/10/2024 11:00 AM EDT Office Visit Division of Medical Oncology [address] [place] [address] Andreas Ortega MD, MPH [address] [place] [address] Division of Medical Oncology Start: 01-28-2024 End: 01-28-2024 Patient encounter procedure 01/28/2024 11:30 AM EDT Appointment [facility] [address] [facility] 1[facility] [place] [phone] Yudelka Moralez, BRIDAL SALES CONSULTANT-CLINICAL RESEARCH NURSE [address] [place] [address] [facility] Start: 01-28-2024 End: 01-28-2024 Clinical Support Encounter 01/28/2024 10:15 AM EDT Clinical Support Encounter Clinical Lab [facility] [address] [place], [id number] Andreas Ortega MD, MPH [address] [place], [id number] [facility] Start: 01-06-2024 End: 01-06-2024 Patient encounter procedure 01/06/2024 3:00 PM EDT Office Visit Division of Medical Oncology [address] Carol Summers MD, PhD [address] [place] [phone] Division of Medical Oncology Start: 12-14-2023 End: 12-14-2023 Patient encounter procedure 12/14/2023 12:30 PM EDT Office Visit Cardiology [facility] [address] [facility] [place] [phone] Cheikh Coelho MD [address] [place] [address] Cardiology Isrrael [facility] 5 Start: 11-26-2023 End: 11-25-2024 [id number] PHENOTYPE [facility] Comment on above: Expected: 11/26/2023 (Approximate), Expi res: 11/25/2024 Start: 11-26-2023 End: 11-25-2024 HUNTER SCREEN IFA [facility] Comment on above: Expected: 11/26/2023 (Approximate), Expi res: 11/25/2024 Start: 11-26-2023 End: 11-25-2024 ANTI MITOCHONDRIAL ANTIBODY [facility] Comment on above: Expected: 11/26/2023 (Approximate), Expi res: 11/25/2024 Start: 11-26-2023 End: 11-25-2024 ANTI SMOOTH MUSCLE ANTIBODY [facility] Comment on above: Expected: 11/26/2023 (Approximate), Expi res: 11/25/2024 Start: 11-26-2023 End: 11-25-2024 MONOCLONAL PROT IMMUNO, SERUM [facility] Comment on above: Expected: 11/26/2023 (Approximate), Expi res: 11/25/2024 Start: 11-26-2023 End: 11-25-2024 T-TRANSGLUTAMINASE IGG/IGA, AB [facility] Comment on above: Expected: 11/26/2023, Expires: Start: 11-08-2023 End: 11-08-2023 Telemedicine consultation with patient 11/08/2023 11:00 AM EDT Telemedicine Division of Medical Oncology [address] [facility] [address] [place] [address] Yudelka Moralez, BRIDAL SALES CONSULTANT-CLINICAL RESEARCH NURSE [address] [place] [address] Division of Medical Oncology Start: 10-28-2023 End: 10-28-2023 Patient encounter procedure 10/28/2023 1:00 PM EDT Office Visit [facility] [place] [address] [place] [address] Kelton Cabrera Jr., MD [address] [place] [phone] [facility] [place] Start: 09-08-2023 End: 09-08-2023 Patient encounter procedure 09/08/2023 10:40 AM EST Routine [facility] [address] [place] [address] [place] [address] Ron Ruano, DO [address] [place] [address] [place] [address] [facility] Start: 06-17-2023 End: 06-17-2023 Patient encounter procedure 06/17/2023 1:30 PM EST Office Visit Division of Surgical Oncology [address] [place] [address] Suman Baker MD, PhD [address] [place] [phone] Division of Surgical Oncology Start: 06-17-2023 End: 06-17-2023 Patient encounter procedure 06/17/2023 12:20 PM EST Appointment Imaging [facility] [address] [place] [phone] Suman Baker MD, PhD [address] [place] [phone] Imaging [facility] Start: 03-19-2023 Influenza vaccination [facility] Start: 03-17-2023 End: 03-17-2023 Patient encounter procedure Division of Medical Oncology Start: 03-11-2023 End: 03-11-2023 Patient encounter procedure 03/11/2023 Office Visit Surgical Oncology Suman Baker MD, PhD [address] [place] [phone] Division of Surgical Oncology Start: 03-11-2023 End: 03-11-2023 Patient encounter procedure Imaging Outpatient [facility] Start: 12-22-2022 End: 12-22-2022 Patient encounter procedure 12/22/2022 Office Visit Cardiovascular Medicine Marisela Velásquez, BRIDAL SALES CONSULTANT-CLINICAL RESEARCH NURSE [address] [place] [address] Cardiology [facility] 5 Start: 12-17-2022 End: 12-17-2022 Patient encounter procedure 12/17/2022 Office Visit Oncology Andreas Ortega MD, MPH [address] [place] [address] Division of Medical Oncology Start: 12-10-2022 End: 12-11-2023 CT Abdomen and Pelvis W contrast IV CT ABDOMEN/PELVIS WITH CONTRAST Imaging Routine Primary malignant neuroendocrine tumor of appendix Expected: 12/10/2022, Expires: 12/11/2023 [facility] Comment on above: Expected: 12/10/2022, Expires: 4 Start: 12-10-2022 End: 12-11-2023 CT Chest W contrast IV CT CHEST WITH CONTRAST Imaging Routine Primary malignant neuroendocrine tumor of appendix Expected: 12/10/2022, Expires: 12/11/2023 [facility] Comment on above: Expected: 12/10/2022, Expires: 4 Start: 12-10-2022 End: 12-10-2022 Patient encounter procedure [facility] Start: 12-07-2022 End: 06-09-2023 CT Abdomen and Pelvis W contrast IV CT ABDOMEN/PELVIS WITH CONTRAST Imaging Routine Primary malignant neuroendocrine tumor of appendix Expected: 12/07/2022, Expires: 06/09/2023 [facility] Comment on above: Expected: 12/07/2022, Expires: 3 Start: 11-05-2022 End: 11-05-2022 Patient encounter procedure 11/05/2022 Office Visit Oncology Andreas Ortega MD, MPH [address] [place] [address] Division of Medical Oncology Start: 10-27-2022 End: 10-27-2022 Patient encounter procedure 10/27/2022 Office Visit Cardiovascular Medicine Cheikh Coelho MD [address] [place] [phone] [facility] Start: 10-27-2022 End: 10-27-2022 ambulatory 10/27/2022 Telemed Clin Support Genetics HerbieErin leone, [facility] [address] [place] [address] Division of Human Genetics Start: 10-21-2022 Subsequent hospital visit by physician 10/21/2022 Hospital Encounter Computerized Tomography Scan Yudelka Moralez, BRIDAL SALES CONSULTANT-CLINICAL RESEARCH NURSE [address] [place] [address] [facility] [place] Start: 10-21-2022 End: 10-21-2022 Patient encounter procedure 10/21/2022 Appointment Echocardiography Yudelka Moralez BRIDAL SALES CONSULTANT-CLINICAL RESEARCH NURSE [address] [place] [address] [facility] [place] Start: 10-07-2022 End: 10-08-2023 CT Chest W contrast IV CT CHEST WITH CONTRAST Imaging Routine Carcinoid syndrome SOB (shortness of breath) Tachycardia Primary malignant neuroendocrine tumor of appendix Expected: 10/07/2022, Expires: 10/08/2023 [facility] Comment on above: Expected: 10/07/2022, Expires: 4 Start: 10-07-2022 End: 10-08-2023 CT Neck W contrast IV CT NECK WITH CONTRAST Imaging Routine Primary malignant neuroendocrine tumor of appendix Expected: 10/07/2022, Expires: 10/08/2023 [facility] Comment on above: Expected: 10/07/2022, Expires: 4 Start: 08-26-2022 End: 08-26-2022 Telemedicine consultation with patient 08/26/2022 Telemedicine Oncology Andreas Ortega MD, MPH [address] [place] [address] Division of Medical Oncology Start: 08-19-2022 End: 08-19-2022 Patient encounter procedure Imaging [facility] Start: 07-08-2022 End: 07-08-2023 Complete blood count with white cell differential, automated CBC, EDIF, PLATELET Lab Routine Primary malignant neuroendocrine tumor of appendix Expected: 07/08/2022, Expires: 07/08/2023 [facility] Comment on above: Expected: 07/08/2022, Expires: 3 Start: 07-08-2022 End: 07-08-2023 Comprehensive metabolic 2000 panel - Serum or Plasma COMPREHENSIVE METABOLIC PANEL Lab Routine Primary malignant neuroendocrine tumor of appendix Expected: 07/08/2022, Expires: 07/08/2023 [facility] Comment on above: Expected: 07/08/2022, Expires: 3 Start: 07-08-2022 End: 07-08-2023 CT Abdomen and Pelvis WO and W contrast IV CT ABDOMEN/PELVIS WITH AND WITHOUT CONTRAST Imaging Routine Primary malignant neuroendocrine tumor of appendix Expected: 07/08/2022, Expires: 07/08/2023 [facility] Comment on above: Expected: 07/08/2022, Expires: 3 Start: 07-08-2022 End: 07-08-2023 Lactate dehydrogenase [Enzymatic activity/volume] in Serum or Plasma LACTATE DEHYDROGENASE Lab Routine Primary malignant neuroendocrine tumor of appendix Expected: 07/08/2022, Expires: 07/08/2023 [facility] Comment on above: Expected: 07/08/2022, Expires: 3 Start: 07-08-2022 End: 07-08-2023 PT Skull base to mid-thigh NUC PET NEUROENDOCRINE Imaging Routine Primary malignant neuroendocrine tumor of appendix Expected: 07/08/2022, Expires: 07/08/2023 [facility] Comment on above: Expected: 07/08/2022, Expires: 3 Start: 07-08-2022 End: 07-08-2022 Patient encounter procedure 07/08/2022 Office Visit Oncology Andreas Ortega MD, MPH [address] [facility] [address] [place] [address] Division of Medical Oncology Start: 07-06-2022 End: 07-06-2022 Telemedicine consultation with patient 07/06/2022 Telemedicine Surgical Oncology Raina Gomes Kelly, BRIDAL SALES CONSULTANT-CLINICAL RESEARCH NURSE [address] [place] [address] [facility] Start: 06-09-2022 End: 06-09-2022 Patient encounter procedure 06/09/2022 Office Visit Surgical Oncology Francia Gomesjelly Mendoza, BRIDAL SALES CONSULTANT-CLINICAL RESEARCH NURSE [address] [place] [address] Division of Surgical Oncology Start: 04-21-2022 End: 04-21-2022 Evaluation and management of inpatient 04/21/2022 Surgery Multispecialty Suman Baker MD, PhD [address] [place] [address] COLECTOMY PARTIAL LAPAROSCOPIC [facility] Comment on above: COLECTOMY PARTIAL LAPAROSCOPIC Start: 04-21-2022 End: 04-21-2022 Laparoscopy colectomy partial w/anastomosis COLECTOMY PARTIAL LAPAROSCOPIC Primary malignant neuroendocrine tumor of appendix 04/21/2022 7:15 AM EDT [facility] Start: 04-21-2022 Evaluation and management of inpatient 04/21/2022 Hospital Encounter Multispecialty Suman Baker MD, PhD [address] [place] [address] Primary malignant neuroendocrine tumor of appendix [facility] Comment on above: Primary malignant neuroendocrine tumor o f appendix Start: 03-19-2022 End: 03-19-2023 Colonoscopy flx dx w/collj spec when pfrmd DIAGNOSTIC COLONOSCOPY GI/Bronch STAT Primary malignant neuroendocrine tumor of appendix Expected: 03/19/2022, Expires: 03/19/2023 [facility] Comment on above: Expected: 03/19/2022, Expires: Start: 03-19-2022 Influenza vaccination INFLUENZA VACCINE (#1) [facility] Start: 03-19-2022 End: 03-19-2023 TYPE AND SCREEN - PREADMISSION TYPE AND SCREEN - PREADMISSION Blood Bank Routine Primary malignant neuroendocrine tumor of appendix Expected: 03/19/2022, Expires: 03/19/2023 [facility] Work Phone: Comment on above: Expected: 03/19/2022, Expires: 3 Start: 07-10-2021 COVID-19 VACCINE (2 - Pfizer risk series) COVID-19 VACCINE (2 - Pfizer risk series) [facility] Start: 07-10-2021 COVID-19 VACCINE (2 - Pfizer series) COVID-19 VACCINE (2 - Pfizer series) [facility] Start: 08-14-2020 Tetanus vaccination TETANUS [facility] Start: 2018 Screening for malignant neoplasm of cervix CERVICAL CANCER SCREENING DISCUSSION [facility] Start: 2016 Third diphtheria, tetanus and acellular pertussis (DTaP) vaccination TDAP (ADULT) [facility] Start: 2016 Zoster vaccine hzv live for subcutaneous use ZOSTER (SHINGLES) VACCINE (1 of 2) [facility] Start: 2015 Tetanus vaccination TETANUS [facility] Start: 2013 Screening for Chlamydia trachomatis CHLAMYDIA SCREEN [facility] Start: 2012 HIV screening HIV SCREENING DISCUSSION [facility] Start: 02-11-2011 Vaccination for human papillomavirus HPV VACCINE ADOL (2 - 2-dose series) [facility] Start: 09-11-2010 Vaccination for human papillomavirus HPV VACCINE ADOL (2 - Risk 3-dose series) [facility] Start: 2008 Vaccination for human papillomavirus HPV VACCINE ADOL (1 - 2-dose series) [facility] Start: 2003 PNEUMOCOCCAL VACCINE SERIES (1 - PCV) PNEUMOCOCCAL VACCINE SERIES (1 - PCV) [facility] Start: 2003 PNEUMOCOCCAL VACCINE SERIES (1 of 2 - PCV) PNEUMOCOCCAL VACCINE SERIES (1 of 2 - PCV) [facility] Start: 1997 GONORRHEA SCREEN GONORRHEA SCREEN [facility] Start: 1997 Hepatitis C antibody, confirmatory test HEPATITIS C VIRUS SCREENING [facility] Start: 1997 Hepatitis C screening HEPATITIS C VIRUS SCREENING [facility] Start: 1997 Screening for Chlamydia trachomatis GONORRHEA SCREEN [facility] CHROMOGRANIN A CHROMOGRANIN A L ab Routine Primary malignant neuroendocrine tumor of appendix 03/11/2023 11:44 AM EDT [facility] Work Phone: End: 03-31-2022 CT Abdomen and Pelvis W contrast IV [facility] Work Phone: Comment on above: 1 Occurrences starting 03/31/2022 until 03/31/2022 End: 08-14-2022 CT Abdomen and Pelvis WO and W contrast IV [facility] Work Phone: Comment on above: 1 Occurrences starting 08/14/2022 until 08/14/2022 End: 11-06-2023 CT Abdomen and Pelvis WO and W contrast IV [facility] Comment on above: 1 Occurrences starting 11/06/2023 until 11/06/2023 Ecg routine ecg w/le ast 12 lds trcg only w/o i&r [place] ECG, TRACING ONLY [place] - OFFICE PERFORMED Routine Primary malignant neuroendocrine tumor of appendix Ordered: 03/19/2022 [facility] Comment on above: Ordered: 03/19/2022 Echocardiography ECHOCARDIOGRAM Echocardiography Routine Carcinoid syndrome SOB (shortness of breath) Tachycardia Ordered: 10/07/2022 [facility] Comment on above: Ordered: 10/07/2022 Laparoscopy colectom y partial w/anastomosis COLECTOMY PARTIAL LAPAROSCOPIC Primary malignant neuroendocrine tumor of appendix [facility] End: 03-09-2023 Magnetic resonance imaging of abdomen and pelvis with contrast MRI ABDOMEN/PELVIS WITHOUT AND WITH CONTRAST Imaging Routine Primary malignant neuroendocrine tumor of appendix 1 Occurrences starting 03/09/2023 until 03/09/2023 [facility] Comment on above: 1 Occurrences starting 03/09/2023 until 03/09/2023 Removal of kike [place] STAPLE REM OVAL [place] - OFFICE PERFORMED Routine Primary malignant neuroendocrine tumor of appendix Ordered: 06/09/2022 [facility] Comment on above: Ordered: 06/09/2022 SURG PATH REQUEST [facility] Comment on above: Release Upon Ordering for 1 Occurrences starting 05/22/2022, 1 completed TRANSIENT ELASTOGRAPHY TRANSIENT ELASTOGRAPHY GI/Bronch Routine Elevated liver enzymes Ordered: 11/26/2023 [facility] Comment on above: Ordered: 11/26/2023 Immunizations Immunization Date Immunization Notes Care Provider Fa shantellty 04-28-2021 influenza virus vaccine, unspecified formulation Raina Gomes BRIDAL SALES CONSULTANT-CLINICAL RESEARCH NURSE Work Phone: [facility] Payers Date Payer Category Payer Self-pay 2022 Unknown [id number] 2021 Managed Care HMO (unspecified) [employer]OUNT HMO PAR[employer]OUNT HMO [id number] 2021-Present [address] [place] [address] HMO [id number] 2021 Unknown [employer]OUNT NELIDA UNT PREFERRED PPO [id number] 2021-Present [phone] [address] [place] [address] PPO [id number] 1997 Unknown [id number] 2.16.840.1.204412.3.579.2 .593 1997 Unknown [id number] 2.16.840.1.098875.3.579.2 .593 1997 Unknown [id number] 2.16.840.1.898887.3.579.2 .593 1997 Unknown [id number] 2.16.840.1.114284.3.579.2 .593 1997 Unknown [id number] 2.16.840.1.438171.3.579.2 .593 1997 Unknown [id number] 2.16.840.1.198271.3.579.2 .593 1997 Unknown [id number] 2.16.840.1.304134.3.579.2 .593 1997 Unknown [id number] 2.16.840.1.181547.3.579.2 .593 1997 Unknown [id number] 2.16.840.1.377505.3.579.2 .593 1997 Unknown [id number] 2.16.840.1.825787.3.579.2 .593 1997 Unknown [id number] 2.16.840.1.812281.3.579.2 .593 1997 Unknown [id number] 2.16.840.1.405367.3.579.2 .593 1997 Unknown [id number] 2.16.840.1.642533.3.579.2 .593 1997 Unknown [id number] 2.16.840.1.806488.3.579.2 .593 1997 Unknown [id number] 2.16.840.1.427588.3.579.2 .593 1997 Unknown [id number] 2.16.840.1.582961.3.579.2 .593 1997 Unknown [id number] 2.16.840.1.068845.3.579.2 .593 1997 Unknown [id number] 2.16.840.1.779515.3.579.2 .1259 1997 Unknown [id number] 2.16.840.1.343662.3.579.2 .1259 1997 Unknown [id number] 2.16.840.1.345160.3.579.2 .1259 1997 Unknown [id number] 2.16.840.1.053009.3.579.2 .1259 1997 Unknown [id number] 2.16.840.1.285706.3.579.2 .1259 1997 Unknown [id number] 2.16.840.1.673025.3.579.2 .1259 1997 Unknown [id number] 2.16.840.1.356273.3.579.2 .1259 1997 Unknown [id number] 2.16.840.1.629273.3.579.2 .1259 1997 Unknown [id number] 2.16.840.1.645469.3.579.2 .1259 1997 Unknown [id number] 2.16.840.1.465445.3.579.2 .727 1997 Unknown [id number] 2.16.840.1.284448.3.579.2 .594 1997 Unknown [id number] 2.16.840.1.880423.3.579.2 .594 1997 Unknown [id number] 2.16.840.1.798994.3.579.2 .594 1997 Unknown [id number] 2.16.840.1.740982.3.579.2 .594 1997 Unknown [id number] 2.16.840.1.592838.3.579.2 .594 1997 Unknown [id number] 2.16.840.1.781879.3.579.2 .594 1997 Unknown [id number] 2.16.840.1.147404.3.579.2 .594 1997 Unknown [id number] 2.16.840.1.444211.3.579.2 .594 1997 Unknown [id number] 2.16.840.1.323088.3.579.2 .594 1997 Unknown [id number] 2.16.840.1.391474.3.579.2 .594 1997 Unknown [id number] 2.16.840.1.220663.3.579.2 .594 1959 Unknown [id number] Unknown [id number] 2.16.840.1.161813.19 Unknown [id number] 2.16.840.1.894284.3.579.2 .531 Social History Date Type Detail Facility Unknown if ever smoked [facility] Other Start: 03-11-2023 End: 11-08-2023 Sex Assigned At [facility] Tobacco smoking stat us [facility] Tobacco smoking consumption unknown [facility] Work Phone: Start: 1995 Sex Assigned At Not on file [facility] Start: 03-19-2022 End: 04-14-2022 Tobacco smoking status [facility] Never smoked tobacco [facility] Start: 03-31-2022 End: 11-26-2023 Alcohol intake Ex-drinker (finding) [facility] Start: 03-19-2022 History SDOH Alcohol Comment last alchohol 2019; mixed drink rarely [facility] Start: 04-14-2022 Tobacco use and exposure Smokeless tobacco non-user [facility] Start: 05-12-2022 End: 08-19-2022 Exposure to SARS-CoV-2 (event) Not sure [facility] Start: 06-28-2022 End: 07-08-2022 Exposure to SARS-CoV-2 (event) Unable to assess [facility] Start: 03-11-2023 End: 11-08-2023 History of Social function [facility] Adolescent depressio n screening assessment 1 [facility] Start: 01-12-2023 [facility] Start: 1995 Sex Assigned At Female [facility] Start: 01-25-2023 Gender identity Identifies as female gender (finding) [facility] Start: 01-25-2023 Sexual orientation Heterosexual (finding) [facility] Goals Date Patient Goal Desired Activity /State Personal health goal Clinical Notes 12-22-2021 to 11-26-2023 Kimberley Woodall LPN - 11/26/2023 9:30 AM Bernardo Mari AlexMAMTA - 11/26/2023 9:30 AM EDTPatient InstructionsRon Ruano DO - 08/24/2023 10:10 AM ESTPatient InstructionsPatient Instructions Note Date & Type Note Facility 11-26-2023 History of Present illness Narrative This nurse verified pts name and . Subjective History of Present Illness: Chief Complaint Patient presents with New Patient Zainab Swift is a 28 y.o. female who presents to the [facility] Gastroenterology, Hepatology, and Nutrition Clinic today [...] Surgeon: Suman Baker MD, PhD; [facility] COLECTOMY PARTIAL OPEN Right 05/22/2022 Laterality: Right; Surgeon: Suman Baker MD, PhD; Location: [facility] MAIN OR DEBULKING INTRA-ABDOMINAL/PELVIC/RETROPERIT FLEMING W/ OMENECTOMY & PELVIC PARA-AORTIC LYMPHADENECTOMY N/A 05/22/2022 Laterality: N/A; Surgeon: Suman Baker MD, PhD; Location: [facility] MAIN OR COLECTOMY PARTIAL LAPAROSCOPIC N/A 04/21/2022 Laterality: N/A; Surgeon: Suman Baker MD, PhD; Location[facility] MA[facility] OR COLONOSCOPY DIAGNOSTIC 04/08/2022 APPENDECTOMY LAPAROSCOPIC 02/03/2022 [place], [place] Current Outpatient Medications Medication Sig acetaminophen [...] as needed for Other (carcinoid syndrome). Pancrelipase, Peo-Evjt-Camo, (Creon) [id number] units Cap DR Ana Maria DeL a Paz take one cap with each meal, and [...] enzymes - ALPHA 1 ANTITRYPSIN; Future - BTCOV-3-DYIXQMUZKRU PHENOTYPE; Future - HUNTER SCREEN IFA; Future [...] - TRANSIENT ELASTOGRAPHY documented in this encounter [facility] 11-26-2023 Instructions MAMTA Dee - 11/26/2023 9:30 AM EDT Labs today to evaluate for causes of liver enzyme elevation Fibroscan ordered to evaluate your liver for fibrosis, steatosis Follow up in 3 months - video documented in this encounter [facility] 08-24-2023 History of Present illness Narrative [...] nursing note reviewed. Exam conducted with a auto damage trainee present. Vitals: Estimated body mass index is [...] Ron Ruano DO documented in this encounter [facility] 12-10-2022 History of Present illness Narrative Chief Complaint: Chief Complaint Patient presents with Follow-up HPI: Zainab Swift is a 27 y.o. female who presents to [facility] for post-operative visit [...] (Patient not taking: Reported on 07/06/2022) Pancrelipase, Wyc-Eoqe-Ixcz, (Creon) [id number] units Cap DR Particles Take two caps [...] 27 y.o. female who presents to [facility] for post-operative visit [...] (Patient not taking: Reported on 07/06/2022) Pancrelipase, Zsy-Qjsw-Twbc, (Creon) [id number] units Cap DR Particles Take two caps [...] concerns, or change in clinical status. Farshad Vigil, SPENCER-CLINICAL RESEARCH NURSE Attending Physician Note I interviewed and examined this patient with the ICU MANAGER/fellow/resident. I reviewed the history and exam detailed [...] months with repeat imaging. Suman Baker MD/PhD six pack packer Division of Surgical Oncology Department of Surgery documented in this encounter [facility] 12-10-2022 Instructions MAMTA Villagran - 12/10/2022 12:30 PM EDT documented in this encounter [facility] 10-22-2022 History of Present illness [...] ulcers, vision changes. 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 but overall able to do everything on [...] Surgeon: Suman Baker MD, PhD; [facility] COLECTOMY PARTIAL OPEN Right 05/22/2022 Laterality: Right; Surgeon: Suman Baker MD, PhD; Location: [facility] MAIN OR DEBULKING INTRA-ABDOMINAL/PELVIC/RETROPERIT FLEMING W/ OMENECTOMY & PELVIC PARA-AORTIC LYMPHADENECTOMY N/A 05/22/2022 Laterality: N/A; Surgeon: Suman Baker MD, PhD; Location: [facility] MAIN OR COLECTOMY PARTIAL LAPAROSCOPIC N/A 04/21/2022 Laterality: N/A; Surgeon: Suman Baker MD, PhD; Location[facility] COLONOSCOPY DIAGNOSTIC 04/08/2022 APPENDECTOMY LAPAROSCOPIC 02/03/2022 [place], [place] Family History Problem Relation Age of [...] Reported on 07/06/2022) 30 tablet 0 Pancrelipase, Obs-Anyo-Mdpb, (Creon) [id number] units Cap DR Particles Take two caps [...] Suero MD documented in this encounter [facility] 10-22-2022 Instructions Rebekah Suero MD - [...] Rub Alcohol hand rub, also called hand pipe or steam fitter furnace installer, can be used instead of soap and [...] they are dry, atleast 20-30 seconds. [facility]. This handout is for informational purposes only. Talk with your doctor or healthcare team if you have any questions about your care. For more health information call the Library for Health Information at [phone] or email: [email or web address]. documented in this encounter [facility] 10-22-2022 History of Present illness Narrative Intravenous access obtained and remained [facility] 22 gauge IV in left ac. Dressing intact and/or coban used to secure access. Patient instructed to report directly to next appointment. documented in this encounter [facility] 10-07-2022 Note Acute Coronary Syndr ome (ACS): Initial Evaluation and Management: [email or web address] [facility] 10-07-2022 History of Present illness [...] to do housework. 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 Eating ok. Weight [...] Reported on 07/06/2022) 30 tablet 0 Pancrelipase, Vbt-Khjl-Ibln, (Creon) [id number] units Cap DR Particles Take two caps [...] Surgeon: Suman Baker MD, PhD; Location[facility] COLECTOMY PARTIAL OPEN Right 05/22/2022 Laterality: Right; Surgeon: Suman Baker MD, PhD; [facility] MA[facility] OR DEBULKING INTRA-ABDOMINAL/PELVIC/RETROPERIT FLEMING W/ OMENECTOMY & PELVIC PARA-AORTIC LYMPHADENECTOMY N/A 05/22/2022 Laterality: N/A; Surgeon: Suman Baker MD, PhD; Location: [facility] MA[facility] OR COLECTOMY PARTIAL LAPAROSCOPIC N/A 04/21/2022 Laterality: N/A; Surgeon: Suman Baker MD, PhD; Location: [facility] MA[facility] OR COLONOSCOPY DIAGNOSTIC 04/08/2022 APPENDECTOMY LAPAROSCOPIC 02/03/2022 [place], [place] Past medical, surgical, family, and social [...] symptoms. MAMTA [facility] and [facility] To discuss with Dr. Ortega documented in this encounter [facility] 10-07-2022 Instructions Johana Lutz RN [...] script to Zainab Thank you for choosing [facility] for your cancer care. FMLA/Disability forms: Please allow up to 2 weeks for the forms to be returned to you +++ should you need any FMLA, Short term disability or intermodal dispatcher disability forms filled out please fax them to (f) [phone] ++++ Refill requests: Please allow 24-48 hours for a response My chart message response: PLEASE DO NOT SEND IN URGENT/EMERGENT MESSAGES VIA MY CHART. Please allow up to 24-48 hours for a response via my chart. Should you have questions or concerns, please call [phone] documented in this encounter [facility] 07-08-2022 History of Present illness Narrative [...] and requires nap. 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 Better appetite with [...] OR COLONOSCOPY DIAGNOSTIC 04/08/2022 APPENDECTOMY LAPAROSCOPIC 02/03/2022 [place], [place] Social History Socioeconomic History Marital status: [...] by Dr. Ortega for impression and recommendations. Yudelka Moralez APRN-CLINICAL RESEARCH NURSE Neuroendocrine Tumor Program [facility] Ghulam Barcensa [facility] and [facility] [place] Addendum by Dr. Ortega: IAttending Addendum:I saw [...] She was seen by Dr. Suman Baker ([facility] surg[facility]) in 03/[address] chest revealed [...] and fatigue. ECOG PS 1. 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 1. Metastatic, well differentiated, grade 1, appendicular [...] placebo groups was 14.3 and 6 months (p=[id number]), respectively. The CLARINET study, [which enrolled patients [...] CT A/P 2. LAMN: D[facility] who recommended active surveillance. No role for adjuvant systemic therapy. Patient will continue to follow with Dr. Suman Baker. 3. Hx of NET in family: referral to genetics 4. Transaminitis: discontinue hepatotoxins/acetaminophen. Repeat LFTs at [facility]. documented in this encounter [facility] 07-08-2022 Instructions Yina Amaya RN [...] Tylenol Cancel pathology-done documented in this encounter [facility] 06-09-2022 History of Present illness Narrative Chief Complaint: Chief Complaint Patient presents with Follow-up HPI: Zainab Swift is a 27 y.o. female who presents to [facility] for post-operative visit [...] status. MAMTA Carrion documented in this encounter [facility] 06-09-2022 Instructions Veronique Calvin RN - 06/09/2022 1:15 PM EST Tele health visit with Raina Gomes CNP in 4 weeks on a Wednesday. Referral placed to neuroendocrine oncology. Return in [address] Baker with scans same day. documented in this encounter [facility] 05-29-2022 Note Formatting of this n [...] via wheelchair with all belongings at 1147. [facility] 05-29-2022 Miscellaneous Notes Patient and [...] injectables) (Follow up scheduled with Dr. Baker) ARTHUR/JAYLYN AVS Portion Completed Yes Plan Plan Possible [...] and assistance is needed, please page the traffic control technician PCRM at [phone]. Patient did well overnight. Patient pain mostly being controlled with epidural, but scheduled medications controlling her mild to moderate breakthrough pain. Patient with steady gait and only needig needing stand-by assistance. Patient now with bowel function and feeling hungry. Patient hopefully to have diet started today. Patient was able to be up in walking with stand-by assistance from multiple times yesterday. 2123: [facility] paged: Rm 1204, [place]: FYI pt states that she can't tolerate taking the olanzapine disintegrating tablet because of the NG. Thanks [id number] Q1 safety rounds completed. Patient pain controlled [...] care will be discharge to home. 05/22/22 1606 Referral Information Arrived From home or self-care;operating room Readmission Information Was patient readmitted within 30 Days? No Information Source Information Source patient Information Source Name Zainab Swift-in person Information Source Number Demographics reviewed Outpatient Providers Outpatient Providers Updated In IHIS Yes Contact Information Plastic Bubble Packer/SW Added to Care Team Yes This Peace Officer is Primary Plastic Bubble Packer/SW Yes (Antonio Jiang RN PCR [phone]) Plastic Bubble Packer Name Pinky Barcenas RN PCR Plastic Bubble Packer's Social Work Contact Name Bailey Magallanes SYSTEMS DESIGNER, POSTMASTER Security Specialist's Living Environment Lives With spouse Living Arrangements [...] Education And Care For Discharge? Phill Swift [phone] Can Support Person Meet The Care Needs Of The Patient? 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 Employment/Financial Concerns no Source Of Income salary/wages Financial Concerns none Insurance Medical Insurance Verified Yes Prescription Coverage Yes Pharmacy updated in IHIS Yes Initial Discharge Planning Home Care Services (COST AND RISK ANALYSIS MANAGER) No Home Therapies (COST AND RISK ANALYSIS MANAGER) None DME (COST AND RISK ANALYSIS MANAGER) None Medical Supplies (COST AND RISK ANALYSIS MANAGER) None Patient Goal for Discharge Return home with assistance from family and friends Anticipated discharge disposition Home Anticipated Services at Discharge Outpatient follow up Anticipated Changes Related to Illness none Current Discharge Risk high risk diagnoses (i.e., CHF, Stroke, DM, chronic pain, abdominal pain, nausea and vomiting) Transportation Available car Home Care Services (COST AND RISK ANALYSIS MANAGER) Additional Home Care Services (COST AND RISK ANALYSIS MANAGER) no Assessment/Concerns to be Addressed Concerns [...] Lines/Drains/Tubes Abdominal incision with dressing x 2 Carson drain x 1-under distal dressing NG-low wall [...] Report called to Jevon EMERY on 12 [facility]. All questions answered. 1514: Patient discharged from [facility] PACU per protocol. Patient transported via gurney with side rails up x2 with HOB>30 degrees to room 1204 [facility] by Natalia EMERY and Dang COMPLAINT INVESTIGATOR. Family called to patient's bedside. 1310: Patient arrives in [facility] PACU from OR via gurney with side rails up x2 with HOB >30 degrees, accompanied by Anesthesiologist: Carol Gputa DO; Chayo Benson MD Jail Keeper: VIJAYA Gamboa; VIJAYA Lopez Word Processing Operator Assisting: Richard Bradshaw MD Patient Care Representative: Wali Art. Patient placed on monitors, VSS. Report received from anesthesia. Patient assessed, see assessment. 1427: PACU labs and abdominal xray for NG placement cleared by Miguel Betancourt at this time. 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 JR drain placed in pelvis. SURGEON Surgeon(s) and Role: * Suman Baker MD, PhD - Primary ANESTHESIOLOGIST Anesthesiologist: Carol Gupta DO; Chayo Benson MD Jail Keeper: VIJAYA Gamboa; VIJAYA Lopez Word Processing Operator Assisting: Richard Bradshaw MD Patient Care Representative: Wali Art SURGICAL STAFF Environmental Planner: Piedad Maki RN; Rima Medel RN Relief Environmental Planner: Suri Stockton RN Relief Scrub: Marchella Bardelang [...] May 22, 2022 1:06 PM Zainab Swift ([id number]) PRE OPERATIVE DIAGNOSIS Primary malignant neuroendocrine tumor [...] Baker MD, PhD - Primary ANESTHESIOLOGIST Anesthesiologist: Carol Gupta DO; Chayo Benson MD Jail Keeper: VIJAYA Gamboa; VIJAYA Lopez Word Processing Operator Assisting: Richard Bradshaw MD Patient Care Representative: Wali Art SURGICAL STAFF Environmental Planner: Piedad Maki RN; Rima Medel RN Relief Environmental Planner: Suri Stockton RN Relief Scrub: Ghanshyam Townsend [...] 1:04 PM SURGEONS: Suman Baker MD, PhD BINGO USHER SURGEON: Rodolfo Arnold MD PROCEDURE: - Exploratory [...] second timeout per standard procedure at the [facility]. We made a midline incision [...] sarmiento stapler device. Next, we began the ddfjmh-qr-oohwisl dissection to mobilize the colonic mesentery. We [...] filed. We then proceeded with creating a wbvr-iq-advt functional end-to-end anastomosis between the distal ileum [...] Seen 05/22/22 documented in this encounter [facility] 05-29-2022 Hospital course Narrative Discharge Summary [...] Upcoming Appointments (up to five)-Some appointments for [facility] outpatient clinics or diagnostic testing locations are not displayed below Provider Department Dept Phone 06/09/2022 1:15 PM Raina Gomes Division of Surgical Oncology Arrive at: Arrive to [facility] Registration [phone] documented in this encounter [facility] 05-28-2022 Note Formatting of this n [...] and assistance is needed, please page the traffic control technician PCRM at [phone]. [facility] 05-28-2022 History of Present illness Narrative Epidural [...] the care of Zainab Swift. Please page [phone] or call [phone] with any questions or concerns. Elroy Powell MD Acute Pain Service Senior Resident @ [phone] Subjective: Passing gas and having regular BMs. [...] Oanh Betancourt APRN-TASH B surgery G3 service [id number] Anesthesia Acute Pain Progress Note Zainab Swift [...] acute pain service at [phone] or call [phone] with any questions or concerns. Yann Burr [...] Out: 2800 [Urine:2650; Other:150] Bun/Creat/Cl/CO2/Glucose: 3/0.49/105/26/93 (05/27 033) WBC/Hgb/Hct/Plts: 6.21/10.1/31.1/344 (05/27 339) Na/K+/Phos/Mg/Ca: 138/4.0/4.5/1.9/8.6 (05/27 [...] was discussed with Dr. Oanh Colón APRN-TASH B surgery G3 service [phone] Psychosocial Assessment Per chart review, patient is a is a 27 y.o. 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 PMH: anxiety, borderline personality disorder, depression, GERD SW met with patient to introduce self, explain clinical social work aide role during inpatient stay, and answer patient questions. Patient was alert and oriented x4 and agreeable to SW visit. Information Source Information Source: patient , review of medical record, spouse Information Source Name: Arlette Swift Information Source Number: see demographics Contact Information Plastic Bubble Packer Name: Pinky Smith RN PCRM Plastic Bubble Packer's Social Work Contact Name: Bailey WILLAMS POSTMASTER Security Specialist's Living Environment Lives With: spouse Living Arrangements: house (one story house wiith 3 Steps to enter) Provides Primary Care For: no one Primary Care Provided By: spouse/significant other, self Support System: Immediate family Able to Return to Prior Arrangements: yes Employment/Financial Employed?: Yes 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 Health Insurance / Rx: [facility] [id number] [place] [address] [address] [facility] AT [facility] Anticipated Discharge Plan: Pt report she plans to return home with care and transportation provided by her . Medical Team Considerations: None SW Interventions/Recommendations: Service SW name and contact information placed on white board in patient's room to contact as needed. SW will continue to remain available to provide assistance and support as needed during inpatient stay. IMER Christina, POSTMASTER SONC and HPB Security Specialist Pager: [phone] For Evening (4:30pm-8am) and Weekend SW needs please call [phone] or page [phone] Anesthesia Acute Pain Progress Note Zainab Swift [...] acute pain service at [phone] or call [phone] with any questions or concerns. Yann Burr [...] with MAMTA Wisdom B surgery G3 service [id number] Anesthesia Acute Pain Progress Note Zainab Swift [...] regimen Please page acute pain service at [phone] or call [phone] with any questions or concerns. Yann Burr [...] interviewed and examined this patient with the ICU MANAGER/fellow/resident. I reviewed the history and exam detailed in the note and have edited it as necessary. I agree with the medical decision making unless otherwise noted below. The patient is doing well. Her pain is well controlled. She is mildly distended on exam. We will continue NPO with NGT until return of bowel function. Suman Baker MD/PhD six pack packer Division of Surgical Oncology Department of Surgery [...] Plan was discussed with Dr. Oanh Colón, BRIDAL SALES CONSULTANT-CLINICAL RESEARCH NURSE HPB surgery G3 service [id number] HPB Surgery Note Subjective: Patient doing well this morning. No GI function. Pain well controlled with PCEA. No nausea. Was able to ambulate yesterday. Given 1L bolus and 500 albumin overnight for low UOP and mild tachycardia with good response. Objective: Vitals: 05/24/22618 BP: 103/59 Pulse: 115 Resp: 18 Temp: [...] minutes Total: 12 ml/hour Physical Exam: Vitals: 11/06/22 0619 BP: 103/59 Pulse: 115 Resp: Temp: Neuro: no focal deficits Catheter Site: Erythema: none Dressing: c/d/i Catheter: 11.5cm at skin (5.5cm in space) Impression: Epidural working well. Pain well-managed. PCEA: 6 administered, 6 pushes. Has required 7.5 additional OMEs over the last 24 hours. Plan: - Continue current regimen Please page acute pain service at [phone] or call [phone] with any questions or concerns. Yann Burr [...] Fellow Anesthesia Acute Pain Progress Note Zainab Kryling is a 27 y.o. female who is [...] acute pain service at [phone] or call [phone] with any questions or concerns. Yann Burr [...] acute pain service at [phone] or call [phone] with any questions or concerns. Richard Bradshaw MD physical therapy resident [facility] documented in this encounter [facility] 05-27-2022 Note Formatting of this n [...] with stand-by assistance from multiple times yesterday. [facility] 05-26-2022 Consult note Formatting of th [...] 1: Location: forearm, anterior, right Device/Lot Number: [id number] catheter system Gauge/Length: 1 3/4 in length;20 gauge Unsuccessful Insertion Attempts: 1 Unsuccessful Attempt Location/Site: Pain Prevention/Patient Tolerance: distraction;tolerated well;appears comfortable Removal: Additional Comments: placed by Carla Mccurdy RN Lumen 2: Lumen 3: Peripheral IV Present on Admission: (Retired/Read Only) Location: (Retired/Read Only) Device: (Retired/Read Only) Gauge/Length: Makeup Sales Advisor/Lot Number: Unsuccessful Insertion Attempts: (Retired/Read Only) Unsuccessful [...] care of this patient. Vascular Access Team [id number] [facility] 05-26-2022 Consult note Formatting of [...] 1: Location: forearm, anterior, right Device/Lot Number: [id number] catheter system Gauge/Length: 1 3/4 in length;20 gauge Unsuccessful Insertion Attempts: 1 Unsuccessful Attempt Location/Site: Pain Prevention/Patient Tolerance: distraction;tolerated well;appears comfortable Removal: Additional Comments: placed by Carla Mccurdy RN Lumen 2: Lumen 3: Peripheral IV Present on Admission: (Retired/Read Only) Location: (Retired/Read Only) Device: (Retired/Read Only) Gauge/Length: Makeup Sales Advisor/Lot Number: Unsuccessful Insertion Attempts: (Retired/Read Only) Unsuccessful Attempt Locations: Pain Prevention: Patient Tolerance: Insertion: Removal Indication: Peripheral IV Location - Orientation: Peripheral IV Location: Insertion Site WDL WD 05/26/222035 Site Preparation/Maintenance site cleansed: chlorhexidine solution;dressing: [...] care of this patient. Vascular Access Team [id number] documented in this encounter [facility] 05-25-2022 Note Formatting of this n ote might be different from the original. 4: Juanitoer paged: Rm 1202, Nichoyling: FYMichi pt states that she can't tolerate taking the olanzapine disintegrating tablet because of the NG. Thanks [id number] [facility] 05-22-2022 Note Formatting of this [...] outcomes by discharge/transition of care. Outcome: Ongoing [facility] 05-22-2022 Note Formatting of this n ote might be different from the original. I certify that this patient requires inpatient services at this time. I anticipate the expected length of stay will include at least two midnights. Inpatient services are due to the following medical concerns appendiceal NET. Plans for post hospitalization care will be discharge to home. [facility] 05-22-2022 Note Formatting of this n ote is different from the original. 05/22/22 1608 Referral Information Arrived From home or self-care;operating room Readmission Information Was patient readmitted within 30 Days? No Information Source Information Source patient Information Source Name Zainab Swift-in person Information Source Number Demographics reviewed Outpatient Providers Outpatient Providers Updated In IHIS Yes Contact Information Plastic Bubble Packer/SW Added to Care Team Yes This Peace Officer is Primary Plastic Bubble Packer/SW Yes (Antonio Jiang RN PCRM [phone]) Plastic Bubble Packer Name Pinky Barcenas RN [facility] Plastic Bubble Packer's Social Work Contact Name Bailey Magallanes MSW, [facility] Security Specialist's Living Environment Lives With spouse Living Arrangements [...] Education And Care For Discharge? Phill Swift [phone] Can Support Person Meet The Care Needs Of The Patient? 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 Employment/Financial Concerns no Source Of Income salary/wages Financial Concerns none Insurance Medical Insurance Verified Yes Prescription Coverage Yes Pharmacy updated in IS Yes Initial Discharge Planning Home Care Services (COST AND RISK ANALYSIS MANAGER) No Home Therapies (COST AND RISK ANALYSIS MANAGER) None DME (COST AND RISK ANALYSIS MANAGER) None Medical Supplies (COST AND RISK ANALYSIS MANAGER) None Patient Goal for Discharge Return home with assistance from family and friends Anticipated discharge disposition Home Anticipated Services at Discharge Outpatient follow up Anticipated Changes Related to Illness none Current Discharge Risk high risk diagnoses (i.e., CHF, Stroke, DM, chronic pain, abdominal pain, nausea and vomiting) Transportation Available car Home Care Services (COST AND RISK ANALYSIS MANAGER) Additional Home Care Services (COST AND RISK ANALYSIS MANAGER) no Assessment/Concerns to be Addressed Concerns [...] Lines/Drains/Tubes Abdominal incision with dressing x 2 Carson drain x 1-under distal dressing NG-low wall [...] and for discharge planning. Medical team updated. [facility] 05-22-2022 Note Formatting of this n ote might be different from the original. 1512: Report called to Jevon EMERY on 12 [facility]. All questions answered. 1514: Patient discharged from [facility] PACU per protocol. Patient transported via gurney with side rails up x2 with HOB>30 degrees to room 1204 [facility] by Natalia EMERY and Dang COMPLAINT INVESTIGATOR. Family called to patient's bedside. [facility] 05-22-2022 Note Formatting of this n ote might be different from the original. 1310: Patient arrives in [facility] PACU from OR via gurney with side rails up x2 with HOB >30 degrees, accompanied by Anesthesiologist: Carol Gupta DO; Chayo Benson MD Jail Keeper: VIJAYA Gamboa; VIJAYA Lopez Word Processing Operator Assisting: Richard Bradshaw MD Patient Care Representative: Wali Art. Patient placed on monitors, VSS. Report received from anesthesia. Patient assessed, see assessment. 1427: PACU labs and abdominal xray for NG placement cleared by Miguel Betancourt at this time. [facility] 05-22-2022 Note Formatting of this n ote is different from the original. 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 JR drain placed in pelvis. SURGEON Surgeon(s) and Role: * Suman Baker MD, PhD - Primary ANESTHESIOLOGIST Anesthesiologist: Carol Gupta DO; Chayo Benson MD Jail Keeper: VIJAYA Gamboa; VIJAYA Lopez Word Processing Operator Assisting: Richard Bradshaw MD Patient Care Representative: Wali Art SURGICAL STAFF Environmental Planner: Piedad Maki RN; Rima Medel RN Relief Environmental Planner: Suri Stockton RN Relief Scrub: Ghanshyam Townsend [...] performed to treat colon cancer through resection Rodlofo Arnold MD May 22, 2022 1:06 PM [facility] Work Phone: 05-22-2022 Note Formatting of this n ote is different from the original. Zainab Swift ([id number]) PRE OPERATIVE DIAGNOSIS Primary malignant neuroendocrine tumor [...] Baker MD, PhD - Primary ANESTHESIOLOGIST Anesthesiologist: Carol Gupta DO; Chayo Benson MD Jail Keeper: VIJAYA Gamboa; VIJAYA Lopez Word Processing Operator Assisting: Richard Bradshaw MD Patient Care Representative: Wali Art SURGICAL STAFF Environmental Planner: Piedad Maki RN; Rima Medel RN Relief Environmental Planner: Suri Stockton RN Relief Scrub: Ghanshyam Townsend [...] SURG PATH REQUEST Suman Baker MD, PhD 05/22/202202 5 : TERMINAL ILEUM AND COLON Permanent [...] Hong MD May 22, 2022 1:04 PM [facility] Work Phone: 05-22-2022 Note Formatting of this n ote is different from the original. SURGEONS: Suman Baker MD, PhD BINGO USHER SURGEON: Rodolfo Arnold MD PROCEDURE: - Exploratory [...] second timeout per standard procedure at the [facility]. We made a midline incision [...] sarmiento stapler device. Next, we began the mwpggn-rc-qdestiu dissection to mobilize the colonic mesentery. We [...] filed. We then proceeded with creating a gvjs-eb-dqzn functional end-to-end anastomosis between the distal ileum [...] participated for the entirety of the case. [facility] Work Phone: 05-22-2022 Nurse Surgical operation note 0815 Family notified of surgery start 1022, 1211 Family updated 1228 Handoff report sent to PACU charge nurse 2302 PACU given notice of arrival 1306 Patient extubated and transported to PACU with anesthesia at bedside and on oxygen inhalation Rima Medel RN [facility] 05-22-2022 Nurse Note 0815 Family notified of surgery start 1022, 1211 Family updated 1228 Handoff report sent to PACU charge nurse 1255 PACU given notice of arrival 1309 Patient extubated and transported to PACU with anesthesia at bedside and on oxygen inhalation Rima Medel RN documented in this encounter [facility] 05-22-2022 Note Formatting of this n [...] General Pain Level/Goal 6 Incision (Adult, Pediatric) 04/21/2246 upper;medial abdomen laparoscopic puncture Placement Date/Time: 04/21/22745 Present On Admission : no Orientation: upper;medial Location: abdomen Incision Type: laparoscopic puncture Incision WDL WDL Incision (Adult, Pediatric) 04/21/22 0748 Left lateral abdomen laparoscopic puncture Placement Date/Time: 04/21/22747 Present On Admission : no Side: Left Orientation: lateral Location: abdomen Incision Type: laparoscopic puncture Incision WDL WDL Incision (Adult, Pediatric) 04/21/2249 lower;medial abdomen laparoscopic puncture Placement Date/Time: 04/21/22748 Present On Admission : no Orientation: lower;medial Location: abdomen Incision Type: laparoscopic puncture Incision WDL WDL Plan WOCT Visit Frequency Sat Last Date Seen 05/22/22 [facility] 05-22-2022 History and physical note [...] N/A; Surgeon: Suman Baker MD, PhD; [facility] DIAGNOSTIC 04/08/2022 APPENDECTOMY LAPAROSCOPIC 02/03/2022 [place], [place] Family History Family History Problem Relation [...] to the patient's satisfaction. Liza Cisneros PA-C [facility] 05-22-2022 History and physical note [...] N/A; Surgeon: Suman Baker MD, PhD; [facility] DIAGNOSTIC 04/08/2022 APPENDECTOMY LAPAROSCOPIC 02/03/2022 [place], [place] Family History Family History Problem Relation [...] hours as instructed. 05/21/2022 04/23/22 Elsie Mason APRN-CLINICAL RESEARCH NURSE Review of Systems Denies the following: Arrhythmias, [...] Liza Cisneros PA-C documented in this encounter [facility] 05-21-2022 Hospital Discharge instructions Pinky Be RN - 05/21/2022 10:38 AM EDT Contacts: Suman Baker MD Office Number: [phone] Option 1 During office hours, Wednesday through Wednesday, 8:00 AM to 4:30 PM, call the office if you have any questions or concerns. After hours, weekends and holidays call the office number and you will be transferred to the After Hours Nurse Line. Call 911 for Emergencies. Your case management assistant (PCRM) has arranged your appointments for follow [...] pharmacist before using any other medicine, including tdsd-zwz-vyeqerm medicines, vitamins, and herbal products. Avoid taking [...] and support, many resources are available. The [employer] Call to request information or check hours. The [place]: or , www.[employer] [facility] Classes: castaclip for Life, Integrative Care Monthly Classes The castaclip for Life Program offers a series of [...] families and friends. For more information, contact [facility] [employer] [facility] at or visit our website at www.[employer] Resources in [facility] include the following: The [place] [employer] Society, [facility] Unit . The Wellness Community [facility] The Cancer Support CommunityGae[facility]: http://cancersupportohio.org/prog ydhm-tpl-zzlxiuxs/virtual-communi ty/ National Resources: [place] [employer] (ACS), www.cancer.org 6-536-VDW-4420, [place]: 8-034-OFB-[place]. [facility] (NCCN) 9-967-847-NCCN, www.nccn.org National Cancer [place] (NCI) 0-361-7-CANCER, www.nci.gov The following attachments cannot be sent through Care Everywhere.Lovenox or Heparin: Subcutaneous Injections ([facility]) (Setswana)documented in this encounter [facility] 04-29-2022 Note PROCEDURE: XR HIP RT [...] authenticated by: CAROLYN WALSH Date: 2022-04-29 16:59 [facility] 04-29-2022 Note PROCEDURE: XR HIP RT [...] authenticated by: CAROLYN WALSH Date: 2022-04-29 16:59 [facility] 04-29-2022 Note PROCEDURE: XR HIP RT [...] by: CAROLYN WALSH Date: 2022-04-29 16:59 [facility] 03-19-2022 History of Present illness Narrative [...] appendectomy on 02/03/22 for acute appendicitis at [facility]. 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 She presents to [facility] Surgical Oncology clinic for surgical evaluation. [...] History: Procedure Laterality Date APPENDECTOMY LAPAROSCOPIC 02/03/2022 [facility], [place], [place] No Known Allergies Current Outpatient Medications [...] in our surgical oncology clinic at [facility], [facility] and [facility]. As you know, Ms. Swift is a [...] the future. Sincerely, Suman Baker MD, PhD six pack packer Department of Surgery Division [place] [address] Office [phone] Fax [email or web address] documented in this encounter [facility] 03-19-2022 Instructions Rhoda Lazo RN - 03/19/2022 3:00 PM EDT Pre-operative Information As a patient at the [facility], you may work with various departments and have help from many professionals. One of these is a surgical oncologist who works in the Division of Surgical Oncology. Surgical oncologists are surgeons who have completed advanced training to care for cancer patients. All of the surgical oncologists at the [facility] have completed specialized training and are board-certified. The surgeon who will be performing your surgery is Suman Baker M.D., six pack packer. [address] [place] [address] Office phone: [phone] We are available to take calls Wednesday-Wednesday 8:00am-4:30pm. During non-business hours and holidays phone calls will be forwarded to a service covering our patients. Please communicate with our team through [facility] [employer] for non-urgent issues only. Office fax: [phone] Clinic Nurse Practitioner Raina Gomes Opener Verifier Packer [employer] Sandra Kennedy Screen Printing Equipment Setter Iris Giraldo OUR TEAM OF EXPERTS [facility] is associated with The [facility] and is an academic medical center. Dr. Skip Le is an attending physician, the supervisor feed house of your care. Listed below are the members of his team: Surgical Oncology Fellow: a physician who completed residency and is obtaining further education. Resident(s): a physician who has finished programming internship and is receiving training in a specialized area (i.e. surgery) Dietary Director(s): a physician who has completed medical school and is in the 1st year of training Nurse Practitioner (ICU MANAGER): A registered nurse with a master's or doctoral degree who is licensed to practice; Clinic: Rainajelly Gomes, [facility] Hospital[facility], [facility], Suman Nesha, [facility], Kika Katarzyna, [facility], Monica Jackson, [facility] Patient Care Loader Engineer (PCRM): A registered nurse who coordinates care for patients returning home from the hospital and assists in coordinating home care; Clinic: Alissa Hunt, [facility], Hospital: Felicitas Campos, RN, Yoselyn Lange , [facility], Antonio Jeffrey RN. MEDICAL RECORDS The Release of Information (ROSALBA) area is staffed from 8:00 a.m. to 7:00 p.m. and is available for walk in requests from 8:00 a.m. to 4:30 p.m. [facility] is responsible for answering requests for copies of medical records from various requestors such as insurance companies, hospitals and patients. Please note it can take up to 2 weeks to complete your request. [phone] DISABILITY FORMS This category includes any form [...] a private room? All rooms at the [facility] are private. Do you have a clinical social work aide available? A clinical social work aide is assigned to our team. How can I help my family plan for my discharge? From the moment a patient is admitted, the PCRMs begin to plan for the patient s discharge. Plan to leave at 11am on the day of discharge. Discharge instructions will be given to the patient. The hospital nurse will discuss these with you. Does the [facility] precertify my surgery? Yes. The precertification department at [facility] will notify your insurance carrier. Who should I contact if I anticipate difficulty paying my bill? We want to make sure all patients have access to the quality healthcare services of [facility], and we are committed to working with you and your family to obtain appropriate financial assistance. You may contact the Office of Financial Counseling [phone] weekdays between 8am and 5pm to help determine whether you might qualify for an assistance program. Do I need to bring clothes from home to wear at the hospital? The [facility] will provide you with personal items. You may wish to bring a robe or slippers. Does the [facility] have a designated area for smoking? The [facility] does not permit smoking inside or outside the hospitals including parking areas and sidewalks. If you would like to quit, you can contact a tobacco instructional services specialist at [phone] or the [place] Tobacco QUIT LINE at [phone]. Where can I find information about visitation, [...] someone after business hours? The office number, [phone] or [phone], is connected to an answering service after 4:30pm each weekday and on weekends, available 08/02. What number should I call if I have billing questions? Please call [facility] s Central Business Office at [phone]. Please Note: In regards to skilled nursing pain control. You may need narcotic pain [...] call by 4 p.m., please call the [facility] Ambulatory Surgery Unit at . [...] the hospital. Do not wear makeup, nail tristanian or hair pins to the hospital. Please [...] a living will or durable power of electrical and instrumentation mechanic, please bring a copy of the documents with you. IF YOU USE CPAP BRING YOUR MACHINE WITH YOU TO THE HOSPITAL ALONG WITH THE PRESCRIPTION FOR CPAP PRESSURE LEVELS If you develop any illness, such as a cold, sore throat, cough, or fever, before your surgery, call the [facility] Ambulatory Surgery Unit at and [...] pulp Popsicles Ice Soft drinks Gatorade (Lemon Nenana preferred) Clear broth or bouillon Jello Coffee [...] not red, orange, or purple in color. Lemon-asa'carsarmiut is preferred. You may need to pour [...] program. You can also get help through: [facility], National Quit Line, [place] [employer] Association, [place] Cancer Society, Smokefree.gov website Stop Alcohol Use [...] helpful:Alcoholics Anonymous (AA) http://www.aa.org/ Rethinking Drinking https://www.rethinkingdrinking.[facility].nih.gov/ National [place] of Alcohol Abuse and Alcoholism https://niaaa.nih.gov/ Sasha Head [phone] -Inpatient, partial hospitalization and outpatient services for [...] Patient Controlled Analgesia (also known as a COMPLAINT INVESTIGATOR) A COMPLAINT INVESTIGATOR is a pain pump that could be [...] AM of surgery documented in this encounter [facility] 02-19-2022 Miscellaneous Notes Addended by: KARINE GALVAN on: 02/19/2022 04:15 PM Modules accepted: Orders INTESTINAL REFERRAL Let the person providing referral info know that you must speak directly to the patient. Our team cannot proceed with intake without communicating directly with the patient. 1) What is your (the patient's) direct phone contact number?- [phone] 2) What is your referring diagnosis? Appendix [...] resources available to cover travel expenses to [facility]? Yes We are currently flexible in offering initial virtual consultations for both surgery and transplant ONLY to [place] living in [place] through May 18, 2022. This may expand to other states depending on where the surgeon who conducts your initial visit is licensed (Dr. Wyatt is licensed in [place], [place], and [place]). If you are living in another state and desire an initial virtual consultation, you may choose to purchase a [employer]. (Surgical or transplant evaluations are highly individualized and may be conducted either through your local providers or at the [facility]. The plan for your evaluation will [...] any pre-surgical testing done at the [facility], and for any post-surgical stay in [place] depending on your post-surgical course. 8) Would you be interested in participating in [facility] Virtual Visits for the psychosocial screening? - Yes If the patient says no, proceed as normal. If yes, please e-mail the patient and copy the clinical social work aide on it. She will need them to [...] have been over the past 1 year? [facility] (Submit ALL template in [employer], AND for transplant patients submit MOST RECENT [...] On medication - Psychiatrist (Submit request in [employer]) 15) Do you have a Power of Atmospheric Drier Tender (POA)? Do you have a Living Will?- No If so, please bring a copy of this to your appointment. 16) For females: When and where was your last mammogram (40 and up) and pap smear (16 and up)? - Needs to be within last year.- PAP- Never had & Mammo- No (Submit request in [employer]) 17) For all patients: When and where was your last dental visit? - Needs to be within last 6 months.- about 6 months ago (Submit request in [employer]) 18) If transplant- Ask patient to obtain their immunization records and have them sent to us via mail/fax.- COVID- Yes The patient has been entered into Edit, chart is created, and request to [employer] for medical records has been generated. Financial clearance has been submitted for rehab/transplant (if on TPN or has dysmotility, submit for both rehab & transplant). Chart will be given to technical support coordinator. Referral received from Dr. Rodney Olivas from [facility] ([phone]) to Dr. Davies. 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 Will call patient to start intake. documented in this encounter [facility] 12-22-2021 Evaluation note Encounter Date Diagnosis [...] Follow up with primary care provider or medical assistant ob gyn if no improvement of symptoms. 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 [facility] Diagnosis Primary malignant neuroendocrine tumor of appendix Post-operative pain Other acute postoperative pain Primary malignant neuroendocrine tumor of appendix [facility] Primary malignant neuroendocrine tumor of appendix- Primary [facility] Diagnosis Primary malignant neuroendocrine tumor of appendix- Primary [facility] Diagnosis Primary malignant neuroendocrine tumor of appendix [facility] Diagnosis Primary malignant neuroendocrine tumor of appendix [facility] Diagnosis Carcinoid syndrome- Primary SOB (shortness of breath) Shortness of breath Tachycardia Tachycardia, unspecified Antinuclear antibody (HUNTER) titer greater than 1:80 Primary malignant neuroendocrine tumor of appendix [facility] Diagnosis Primary malignant neuroendocrine tumor of appendix [facility] Diagnosis Carcinoid syndrome SOB (shortness of breath) Shortness of breath Tachycardia Tachycardia, unspecified Primary malignant neuroendocrine tumor of appendix [facility] Diagnosis Fibromyalgia muscle pain- Primary Mylagia and myositis, unspecified [facility] Diagnosis Primary malignant neuroendocrine tumor of appendix- Primary [facility] Primary malignant neuroendocrine tumor of appendix [facility] Diagnosis 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 Neoplasm of unspecified nature of digestive system [facility] Diagnosis Third trimester state, incidental documented in [facility] Diagnosis Elevated liver enzymes- Primary Nonspecific elevation of levels of transaminase or lactic acid dehydrogenase (LDH) [facility] Narrative - Reported* Type Description Date Medical History chronic depression [employer] Other [facility] for referral (narrative)* (Routine) Specialty Diagnoses / Procedures Referred By Katharine morales Referred To Contact ISRRAEL Crow [address] [place] [phone] Referral ID Status Reason Start Date Expiration Date Visits Re quested Visits Authorized * (Routine) - New Request Specialty Diagnoses / Procedures Referred By Katharine t Referred To Contact Procedures PLATELET MONITORING PER PROTOCOL Suman Baker MD, PhD [address] [place] [address] Referral ID Status Reason Start Date Expiration Date V isits Requested Visits Authorized [id number] New Request 05/22/2022 06/16/2023 1 1 * (Routine) - New Request Specialty Diagnoses / Procedures Referred By Contac t Referred To Contact Procedures DVT/VTE RISK ASSESSMENT Suman Baker MD, PhD [address] [place] [address] Referral ID Status Reason Start Date Expiration Date V isits Requested Visits Authorized [id number] New Request 05/22/2022 06/16/2023 1 1 * (Routine) - New Request Specialty Diagnoses / Procedures Referred By Contac t Referred To Contact Procedures NO MECHANICAL DVT PROPHYLAXIS Liza Cisneros PA-C [address] [place] [address] Referral ID Status Reason Start Date Expiration Date V isits Requested Visits Authorized [id number] New Request 05/22/2022 06/16/2023 1 1 [facility] for referral (narrative)* Consultation (Routine) - New Request Specialty Diagnoses / Procedures Referred By Contac t Referred To Contact Oncology Diagnoses Primary malignant neuroendocrine tumor of appendix Raina Gomes BRIDAL SALES CONSULTANT-CLINICAL RESEARCH NURSE [address] [place] [address] Andreas Ortega MD, MPH [address] [facility] [address] [place] [address] Referral ID Status Reason Start Date Expiration Date V isits Requested Visits Authorized [id number] New Request 06/09/2022 07/04/2023 1 1 * MRI/CAT Scan (Routine) - New Request Specialty Diagnoses / Procedures Referred By Contac t Referred To Contact Diagnoses Primary malignant neuroendocrine tumor of appendix Procedures CT ABDOMEN/PELVIS WITH CONTRAST CHG CT SCAN,ABDOMENT AND PELVIS,W CONTRAST Raina Gomes BRIDAL SALES CONSULTANT-[facility] [address] [facility] [address] [place] [address] Referral ID Status Reason Start Date Expiration Date V isits Requested Visits Authorized [id number] New Request 06/09/2022 07/04/2023 [address] [facility] for referral (narrative)* Consultation (Routine) - New Request Specialty Diagnoses / Procedures Referred By Contac t Referred To Contact Genetics Diagnoses Primary malignant neuroendocrine tumor of appendix Yudelka Moralez [facility] [address] [place] [address] Erin Stoner, [facility] [address] [address] Referral ID Status Reason Start Date Expiration Date V isits Requested Visits Authorized [id number] New Request 07/08/2022 08/02/2023 1 1 * MRI/CAT Scan (Routine) - New Request Specialty Diagnoses / Procedures Referred By Contac t Referred To Contact Diagnoses Primary malignant neuroendocrine tumor of appendix Procedures CT ABDOMEN/PELVIS WITH AND WITHOUT CONTRAST CHG CT SCAN,ABDOMENT AND PELVIS,Andreas Ellis MD, MPH [address] [address] Referral ID Status Reason Start Date Expiration Date V isits Requested Visits Authorized [id number] New Request 07/08/2022 08/02/2023 1 1 * Radiology (Routine) - New Request Specialty Diagnoses / Procedures Referred By Contmarcia t Referred To Contact Diagnoses Primary malignant neuroendocrine tumor of appendix Procedures NUC PET NEUROENDOCRINE CHG NUC THERAPY HYPERTHYROID SUBSEQUENT Yudelka Moralez APRN-CNP [address] [place] [address] Referral ID Status Reason Start Date Expiration Date V isits Requested Visits Authorized [id number] New Request 07/08/2022 08/02/2023 1 1 [facility] Auth/Cert Specialty Diagnoses / Procedures Referred By Katharine t Referred To Contact Diagnoses 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] Procedures WV CHG HYPERTHERMIA RX INTRACAV PROBE WV PART REMOVAL COLON W ANASTOMOSIS WV RESECT 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 REACTOR TECHNICIAN MALIG 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) COLECTOMY PARTIAL OPEN DEBULKING INTRA-ABDOMINAL/PELVIC/RETROPE RITONEAL W/ OMENECTOMY & PELVIC PARA-AORTIC LYMPHADENECTOMY Suman Baker MD, PhD [address] [place] [address] [facility] [address] [place] [address] Referral ID Status Reason Start Date Expiration Date Visits Re quested Visits Authorized [id number] 1 1 [facility] Summary Purpose Family History No [...] By Katharine t Referred To Contact Diagnoses Elevated liver enzymes Procedures TRANSIENT ELASTOGRAPHY Dolores Johnson APRN-CNP [address] [place] [address] Referral ID Status Reason Start Date Expiration Date V isits Requested Visits Authorized [id number] New Request 11/26/2023 12/20/2024 1 1 Specialty Diagnoses / Procedures Referred By Contac t Referred To Contact Echocardiography Diagnoses Carcinoid syndrome SOB (shortness of breath) Tachycardia Procedures ECHOCARDIOGRAM WV ECHO HEART XTHORACIC,COMPLETE W DOPPLER Yudelka Moralez APRN-CNP [address] [place], [place] Echocardiography [place] [address] [place] [address] Referral ID Status Reason Start Date Expiration Date V isits Requested Visits Authorized [id number] Auth Not Needed 10/07/2022 11/01/2023 1 1 Specialty Diagnoses / Procedures Referred By Contac t Referred To Contact Diagnoses Primary malignant neuroendocrine tumor of appendix Procedures CT NECK WITH CONTRAST WV CT NECK TISSUE CONTRAST Yudelka Moralez APRN-CNP [address] [place] [phone] Referral ID Status Reason Start Date Expiration Date V isits Requested Visits Authorized [id number] New Request 10/07/2022 11/01/2023 1 1 Specialty Diagnoses / Procedures Referred By Contac t Referred To Contact Diagnoses Carcinoid syndrome SOB (shortness of breath) Tachycardia Primary malignant neuroendocrine tumor of appendix Procedures CT CHEST WITH CONTRAST CHG DIAGNOSTIC COMPUTED TOMOGRAPHY THORAX W/CONTRAST Yudelka Moralez APRN-CNP [address] [place] [phone] Referral ID Status Reason Start Date Expiration Date V isits Requested Visits Authorized [id number] New Request 10/07/2022 11/01/2023 1 1 Specialty Diagnoses / Procedures Referred By Contac t Referred To Contact Oncology Diagnoses Carcinoid syndrome SOB (shortness of breath) Tachycardia Yudelka Moralez APRN-CNP [address] [place], [place] Referral ID Status Reason Start Date Expiration Date V isits Requested Visits Authorized [id number] New Request 10/07/2022 11/01/2023 1 1 Specialty Diagnoses / Procedures Referred By Contac t Referred To Contact Rheumatology Diagnoses Antinuclear antibody (HUNTER) titer greater than 1:80 Yudelka Moralez APRN-CNP [address] [place] [address] Referral ID Status Reason Start Date Expiration Date V isits Requested Visits Authorized [id number] New Request 10/07/2022 11/01/2023 1 1 Specialty Diagnoses / Procedures Referred By Katharine morales Referred To Contact Diagnoses Primary malignant neuroendocrine tumor of appendix Procedures CT ABDOMEN/PELVIS WITH CONTRAST CHG CT SCAN,ABDOMENT AND PELVIS,W CONTRAST Raina Gomes, BRIDAL SALES CONSULTANT-CLINICAL RESEARCH NURSE [address] [facility] [address]th floor [place] [phone] Referral ID Status Reason Start Date Expiration Date Visits Re quested Visits Authorized [id number] Closed 03/19/2022 04/13/2023 1 1 Specialty Diagnoses / Procedures Referred By Katharine morales Referred To Contact TRANSPLANT Diagnoses Cancer of appendix (HCC) Procedures CONSULT TO TRANSPLANT CENTER EXPLORATORY LAPAROTOMY CELIOTOMY W/WO BIOPSY SPX Vernon Davies MD [address] [place] [address] [facility] [address] [place] [address] Referral ID Status Reason Start Date Expiration Date Visits Requested Visits Authorized [id number] Pending Review Financial Clearance Required - [facility] [employer]or 02/19/2022 02/19/[phone] Additional Source Comments INFORMATION SOURCE (unrecogn ized section and content) DATE CREATED AUTHOR 02/19/2021 [email or web address] [facility] DATE CREATED AUTHOR AUTHOR'S ORGANIZ ATION 12/[facility]/[address] [facility] DATE CREATED AUTHOR AUTHOR'S ORGANIZ ATION 09/30/2023 [facility] DATE CREATED AUTHOR AUTHOR'S ORGANIZ ATION 11/13/2023 [facility] EPIC DATE CREATED AUTHOR AUTHOR'S ORGANIZ ATION 12/31/2023 [employer] [facility] DATE CREATED AUTHOR AUTHOR'S ORGANIZ ATION 01/08/2024 [facility] REASON FOR VISIT (unrecogniz ed section and content) Reason Comments Referral Request Specialty Diagnoses / Procedures Referred By Katharine morales Referred To Contact Diagnoses Primary malignant neuroendocrine tumor of appendix Procedures CT ABDOMEN/PELVIS WITH CONTRAST CHG CT SCAN,ABDOMENT AND PELVIS,W CONTRAST Raina Gomes BRIDAL SALES CONSULTANT-[facility] [address] [facility] [address] [place] [address] Referral ID Status Reason Start Date Expiration Date Visits Re quested Visits Authorized [id number] Closed 03/19/2022 04/13/2023 1 1 Reason Comments New Patient Specialty Diagnoses / Procedures Referred By Contac t Referred To Contact Surgical Oncology Diagnoses New patient - Appendix NET - External: Dr. Timmy Hall - Preferred: Oanh Procedures NEW ISRRAEL SURGERY Self, Self Suman Baker MD, PhD [address] [place] [address] Referral ID Status Reason Start Date Expiration Date Visits Re quested Visits Authorized [id number] Closed 03/19/2022 04/13/2023 1 1 Reason Comments [...] Primary malignant neuroendocrine tumor of appendix Raina Gomes BRIDAL SALES CONSULTANT-[facility] [address] [facility] [address] [place] [address] Andreas Ortega MD, MPH [address] [facility] [address] [place] [address] Referral ID Status Reason Start Date Expiration Date V isits Requested Visits Authorized [id number] New Request 06/09/2022 07/04/2023 1 1 Specialty Diagnoses / Procedures Referred By Contac t Referred To Contact Diagnoses Primary malignant neuroendocrine tumor of appendix Procedures NUC PET NEUROENDOCRINE CHG NUC THERAPY HYPERTHYROID SUBSEQUENT Yudelka Moralez, BRIDAL SALES CONSULTANT-CLINICAL RESEARCH NURSE [address] [place] [address] Referral ID Status Reason Start Date Expiration Date Visits Re quested Visits Authorized [id number] Closed 07/08/2022 08/02/2023 1 1 Specialty Diagnoses / Procedures Referred By Contac t Referred To Contact Diagnoses Primary malignant neuroendocrine tumor of appendix Procedures CT ABDOMEN/PELVIS WITH AND WITHOUT CONTRAST CHG CT SCAN,ABDOMENT AND PELVIS,Andreas Ellis MD, MPH [address] [facility] [address] [place] [address] Referral ID Status Reason Start Date Expiration Date Visits Re quested Visits Authorized [id number] Closed 07/08/2022 08/02/2023 1 1 Reason Comments [...] of appendix Procedures CT NECK WITH CONTRAST WV CT NECK TISSUE CONTRAST Yudelka Moralez, BRIDAL SALES CONSULTANT-CLINICAL RESEARCH NURSE [address] [place] [address] Referral ID Status Reason Start Date Expiration Date Visits Re quested Visits Authorized [id number] Closed 10/07/2022 11/01/2023 1 1 Specialty Diagnoses / Procedures Referred By Katharine t Referred To Contact Echocardiography Diagnoses Carcinoid syndrome SOB (shortness of breath) Tachycardia Procedures ECHOCARDIOGRAM WV ECHO HEART XTHORACIC,COMPLETE W DOPPLER Yudelka Moralez, BRIDAL SALES CONSULTANT-CLINICAL RESEARCH NURSE [address] [place] [address] Echocardiography [place] [address] [facility] [address] [place] [address] Referral ID Status Reason Start Date Expiration Date Visits Re quested Visits Authorized [id number] Closed 10/07/2022 11/01/2023 1 1 Specialty Diagnoses / Procedures Referred By Katharine t Referred To Contact Diagnoses Carcinoid syndrome SOB (shortness of breath) Tachycardia Primary malignant neuroendocrine tumor of appendix Procedures CT CHEST WITH CONTRAST CHG DIAGNOSTIC COMPUTED TOMOGRAPHY THORAX W/CONTRAST Yudelka Moralez, BRIDAL SALES CONSULTANT-CLINICAL RESEARCH NURSE [address] [place] [address] Referral ID Status Reason Start Date Expiration Date Visits Re quested Visits Authorized [id number] Closed 10/07/2022 11/01/2023 1 1 Reason Comments New Patient Referred by Dorothy Moralez NP for JR. 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 Joint achy/flu symptoms, tachcardia, + HUNTER. 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 Procedures MRI ABDOMEN/PELVIS WITHOUT CONTRAST [place] MRI, ABDOMEN (MRI) [place] MRI, PELVIS, W/O CONTRAST Yudelka Moralez BRIDAL SALES CONSULTANT-CLINICAL RESEARCH NURSE [address] [place] [address] Referral ID Status Reason Start Date Expiration Date Visits Re quested Visits Authorized [id number] Closed 03/09/2023 04/02/2024 1 1 Reason Comments Routine Visit Referral ID Status Reason Start Date Expiration Date Visits Re quested Visits Authorized [id number] Closed 04/06/2023 04/30/2024 1 1 Reason Comments New Patient Specialty Diagnoses / Procedures Referred By Katharine t Referred To Contact Gastroenterology Diagnoses Hepatomegaly Transaminitis Yudelka Moralez, BRIDAL SALES CONSULTANT-CLINICAL RESEARCH NURSE [address] [place] [address] Referral ID Status Reason Start Date Expiration Date V isits Requested Visits Authorized [id number] Pending Review 11/10/2023 12/04/2024 1 1 Source Comments (unrecognize d section and content) In the event this informatio n is protected by the Federal Confidentiality of Alcohol and Drug Abuse Patient Records regulations: The Federal rules restrict any use of the information to criminally investigate or prosecute any alcohol or drug abuse patient.[facility] Care Teams (unrecognized sec tion and content) Senior Billing Consultant Relationship Specialty Start Date End Date Erin Sams RN PCP - General 03/19/22 Rodney Olivas MD [address] [place] [address] Hematology 03/19/22 Senior Billing Consultant Relationship Specialty Start Date End Date Erin Sams RN PCP - General 03/19/22 Rodney Olivas MD [address] [place] [address] Hematology 03/19/22 Senior Billing Consultant Relationship Specialty Start Date End Date Erin Sams RN PCP - General 03/19/22 Rodney Olivas MD [address] [place] [address] Hematology 03/19/22 Senior Billing Consultant Relationship Specialty Start Date End Date Erin Sams RN PCP - General 03/19/22 Rodney Olivas MD [address] [place] [address] Hematology 03/19/22 Senior Billing Consultant Relationship Specialty Start Date End Date Erin Sams RN PCP - General 03/19/22 Rodney Olivas MD [address] [place] [address] Hematology 03/19/22 Suman Baker MD, PhD [address] [place] [address] Surgeon Surgical Oncology 07/08/22 Senior Billing Consultant Relationship Specialty Start Date End Date Erin Sams RN PCP - General 03/19/22 Rodney Olivas MD [address] [place] [address] Hematology 03/19/22 Suman Baker MD, PhD [address] [place] [phone] Surgeon Surgical Oncology 07/08/22 Senior Billing Consultant Relationship Specialty Start Date End Date Erin Sams RN PCP - General 03/19/22 Rodney Olivas MD [address] [place] [address] Hematology 03/19/22 Suman Baker MD, PhD [address] [place] [address] Surgeon Surgical Oncology 07/08/22 Senior Billing Consultant Relationship Specialty Start Date End Date Erin Sams RN PCP - General 03/19/22 Rodney Olivas MD [address] [place] [address] Hematology 03/19/22 Suman Baker MD, PhD [address] [place] [address] Surgeon Surgical Oncology 07/08/22 Cheikh Coelho MD [address] [place] [address] Wine Blender Cardiovascular Disease 10/07/22 Senior Billing Consultant Relationship Specialty Start Date End Date Erin Sams RN PCP - General 03/19/22 Rodney Olivas MD [address] [place] [address] Hematology 03/19/22 Suman Baker MD, PhD [address] [place] [address] Surgeon Surgical Oncology 07/08/22 Cheikh Coelho MD [address] [place] [address] Wine Blender Cardiovascular Disease 10/07/22 Senior Billing Consultant Relationship Specialty Start Date End Date Erin Sams RN PCP - General 03/19/22 Rodney Olivas MD [address] [place] [address] Hematology 03/19/22 Suman Baker MD, PhD [address] [place] [address] Surgeon Surgical Oncology 07/08/22 Cheikh Coelho MD [address] [place] [address] Wine Blender Cardiovascular Disease 10/07/22 Senior Billing Consultant Relationship Specialty Start Date End Date Erin Sams RN PCP - General 03/19/22 Rodney Olivas MD [address] [place] [address] Hematology 03/19/22 Suman Baker MD, PhD [address] [place] [address] Surgeon Surgical Oncology 07/08/22 Cheikh Coelho MD [address] [place] [address] Wine Blender Cardiovascular Disease 10/07/22 Senior Billing Consultant Relationship Specialty Start Date End Date Erin Sams RN PCP - General 03/19/22 Rodney Olivas MD [address] [place] [address] Hematology 03/19/22 Suman Baker MD, PhD [address] [place] [address] Surgeon Surgical Oncology 07/08/22 Cheikh Coelho MD [address] [place] [phone] Wine Blender Cardiovascular Disease 10/07/22 Senior Billing Consultant Relationship Specialty Start Date End Date Erin Sams CNP [address] [place] [address] PCP - General 03/10/23 Rodney Olivas MD [address] [place] [address] Hematology 03/19/22 Suman Baker MD, PhD [address] [place] [address] Surgeon Surgical Oncology 07/08/22 Cheikh Coelho MD [address] [place] [phone] Wine Blender Cardiovascular Disease 10/07/22 Senior Billing Consultant Relationship Specialty Start Date End Date Erin Sams CNP [address] [place] [address] PCP - General 03/10/23 Rodney Olivas MD [facility] [place] [address] Hematology 03/19/22 Suman Baker MD, PhD [address] [place] [address] Surgeon Surgical Oncology 07/08/22 Cheikh Coelho MD [address] [place] [address] Wine Blender Cardiovascular Disease 10/07/22 Senior Billing Consultant Relationship Specialty Start Date End Date Erin Sams CLINICAL RESEARCH NURSE [address] [place] [address] PCP - General 03/10/23 Rodney Olivas MD [address] [place] [address] Hematology 03/19/22 Suman Baker MD, PhD [address] [place] [address] Surgeon Surgical Oncology 07/08/22 Cheikh Coelho MD [address] [place] [address] Wine Blender Cardiovascular Disease 10/07/22 Andreas Ortega MD, MPH [address] [place] [address] Oncologist Medical Oncology 03/31/23 Ron Ruano DO [address] [facility] [address] [facility] [place] [address] Obstetrics & Gynecology 04/06/23 Senior Billing Consultant Relationship Specialty Start Date End Date Erin Sams, CLINICAL RESEARCH NURSE [address] [facility] [place] [address] PCP - General 03/10/23 Rodney Olivas MD [address] [place] [address] Hematology 03/19/22 Suman Baker MD, PhD [address] [place] [address] Surgeon Surgical Oncology 07/08/22 Cheikh Coelho MD [address] [place] [address] Wine Blender Cardiovascular Disease 10/07/22 Andreas Ortega MD, MPH [address] [facility] [address] [place] [address] Oncologist Medical Oncology 03/31/23 Ron Ruano DO [address] [facility] 1 [facility] [place] [address] Obstetrics & Gynecology 04/06/23 Scheduled Active and [...] RN) 0134 (Not Given - Provider: Craig aPgan RN - Reason: Patient/family refused)0613 (Given - [...] Louis RN)0825 (Rate/Dose Verify - Provider: Tania Louis, RN)1023 (Stopped - Provider: Tania Louis RN) OLANZapine (zyPREXA ZYDIS) disintegrating tablet 5 mg 5 mg, Oral, DAILY AT BEDTIME, First dose on Wed05/25/22 at 2100, Until Discontinued, Administer intact tablet to dissolve in mouth; do not split, crush, or chew. 2039 (Not Given - Provider: Craig Pagan RN - Reason: Patient/family refused) 213 (Not Given - Provider: Craig Pagan RN [...] RN) 0744 (Given - Provider: Tania Louis, RN) senna (SENOKOT) tablet 8.6 mg 8.6 [...] Verify - Provider: Yadira Grier RN)0659 ([facility] Volume/Shift Total - Provider: Yadira Grier RN - Comment: shift total: 175 ml remaining)1105 (Rate/Dose Verify - Provider: Alena Wade RN)1122 (Rate/Dose Verify - Provider: Alena Wade RN)1459 (Rate/Dose Verify - Provider: Alena Wade RN)1555 (Rate/Dose Verify - Provider: Alena Wade RN)1848 (Rate/Dose Verify - Provider: Alena Wade RN)1849 (Rate/Dose Verify - Provider: Alena Wade RN)1910 ([facility] Volume/Shift Total - Provider: Alena Wade RN - Comment: 100mL left in cartridge) 0100 ([facility] Volume/Shift Total - Provider: Craig Pagan RN [...] Louis RN)2134 (See Alternative - Provider: Craig Pagan, RUPERT) [...] RN)184 (Rate/Dose Verify - Provider: Alena Wade RN)184 [...] BE BASED ON THE PRIMARY CLINICAL RECORDS. [facility]. provides no warranty or guarantee of the accuracy or completeness of information in this document.
[2024-01-12 07:47] LABS: Bilirubin Urine NEGATIVE (NEGATIVE); Blood Urine LARGE (NEGATIVE); Clarity Urine CLOUDY (CLEAR); Color Urine YELLOW (YELLOW); Glucose Urine UA NEGATIVE (NEGATIVE); Ketones Urine NEGATIVE (NEGATIVE); Leukocyte Esterase Urine SMALL (NEGATIVE); Nitrite Urine NEGATIVE (NEGATIVE); Protein Urine >=300 mg/dL (NEG/TRACE); Specific Gravity Urine >=1.030 (1.005-1.025); Urobilinogen Urine 0.2 EU/dL (0.2-1.0)
[2024-01-12 07:49] LABS: WBC Urine >100 #/HPF (NONE SEEN)
[2024-01-12 07:50] LABS: Bacteria Urine MODERATE #/HPF (NONE SEEN); Mucus Urine SMALL (NONE SEEN)
[2024-01-12 07:51] LABS: Cast Seen? NONE SEEN #/LPF (NONE SEEN); Crystals Seen? None Seen #/HPF (None Seen); Squamous Epithelial Cell Urine MANY #/LPF (NONE/RARE); Transitional Epi Cells Urine RARE #/LPF (NONE SEEN); Urine Culture Indicated ALREADY ORDERED
== END 2024-01-12 06:57 | disposition home or self-care (01) ==
PROVIDERS: PCP Nurse Practitioner Family; Visit Provider Nurse Practitioner Family
DX: N39.0 Urinary tract infection, site not specified (principal)
CPT/HCPCS: 81001; 87086; 87150; 87186

== ENCOUNTER 2024-01-24 07:35 | Outpatient (RCR) | payer OTHER, SELFPAY ==
[2024-01-24 12:57] VITALS: BP 118/78; PULSE 76; TEMP 36.8; O2SAT 97
[2024-01-24] MEDS: OCTREOTIDE ACETATE IM (13:04)
== END 2024-01-27 15:31 | disposition home or self-care (01) ==
LOC: INF 07:35
PROVIDERS: PCP Nurse Practitioner Family; Visit Provider Nurse Practitioner Family
DX: E34.0 Carcinoid syndrome (principal); C71.8 Malignant neoplasm of overlapping sites of brain
CPT/HCPCS: 96372; J2353

== ENCOUNTER 2024-01-26 06:30 | Outpatient (OUT) | payer OTHER, SELFPAY ==
[2024-01-26 06:56] LABS: Bilirubin Urine NEGATIVE (NEGATIVE); Blood Urine NEGATIVE (NEGATIVE); Clarity Urine CLEAR (CLEAR); Color Urine YELLOW (YELLOW); Glucose Urine UA NEGATIVE (NEGATIVE); Ketones Urine NEGATIVE (NEGATIVE); Leukocyte Esterase Urine NEGATIVE (NEGATIVE); Nitrite Urine NEGATIVE (NEGATIVE); Protein Urine NEGATIVE (NEG/TRACE); Specific Gravity Urine >=1.030 (1.005-1.025); Urobilinogen Urine 0.2 EU/dL (0.2-1.0)
[2024-01-26 07:08] LABS: RBC Urine 0-2 #/HPF (0-2); WBC Urine 0-2 #/HPF (NONE SEEN)
[2024-01-26 07:09] LABS: Bacteria Urine TRACE #/HPF (NONE SEEN); Cast Seen? NONE SEEN #/LPF (NONE SEEN); Crystals Seen? None Seen #/HPF (None Seen); Mucus Urine SMALL (NONE SEEN); Squamous Epithelial Cell Urine FEW #/LPF (NONE/RARE); Urine Culture Indicated ALREADY ORDERED
== END 2024-01-26 06:31 | disposition home or self-care (01) ==
LOC: LAB 06:31
PROVIDERS: PCP Nurse Practitioner Family; Visit Provider Nurse Practitioner Family
DX: N39.0 Urinary tract infection, site not specified (principal)
CPT/HCPCS: 81001; 87086

== ENCOUNTER 2024-04-03 07:35 | Outpatient (RCR) | payer OTHER, SELFPAY ==
[2024-04-03 12:58] VITALS: BP 117/79; PULSE 67; TEMP 36.6; O2SAT 99
[2024-04-03] MEDS: OCTREOTIDE ACETATE IM (13:30)
--- NOTE | 2024-04-03 13:46 | PC.NURSE ---
1258: Pt. to [facility] amb. for injection as ordered. Seated i recliner. VSS. Awaiting med to come to room temp. before administration. Snack and beverage offered, pt. declined. 1330: Pt. medicated with Octreotide IM as ordered, see MAR. Trace bleeding to left gluteal area at injection site. Bandaid applied. Pt. tolerates with minimal c/o discomfort. 1334: D/c'd amb. to home.
== END 2024-04-17 23:59 | disposition home or self-care (01) ==
LOC: INF 07:35
PROVIDERS: PCP Nurse Practitioner Family
DX: E34.0 Carcinoid syndrome (principal); C71.8 Malignant neoplasm of overlapping sites of brain
CPT/HCPCS: 96372; J2353

== ENCOUNTER 2024-04-25 06:57 | Outpatient (OUT) | payer OTHER, SELFPAY ==
--- OUTSIDE RECORDS SUMMARY | 2024-04-25 07:01 | XMS_ITS | CCD ---
Author Organization [facility] CliniSyct Care Team Providers Care Ruffling Hemmer Automatic Name Role Phone Ava Lundberg Unavailable Unavailable Primary Care Provider Unavailemanuel Sams RN, Erin Primary Care Provider Unavaildveon Olivas MD, Rodney Unavailable Latrell EMERY, Erin Primary Care Provider Unavaildevon Olivas MD, Rodney Unavailable Oanh DUPONT, PhD, Archie Naylor Unavailable Cheikh Coelho MD Unavailable [phone] ERIN SAMS Primary Care Unavailable ISABEL ., DR TIMMY Sibley Admitting Unavaila ble ISABEL ., DR TIMMY Sibley Consulting Unavaila ble ISABEL ., DR TIMMY Sibley Attending Unavaildevon SAMS, [...] Care Unavailable JEAN CARLOS, FROYLAN Consulting Unavailable CHEIKH BOUCHER Consulting Unavailable LATRELL, [...] Deisy DUPONT, Rodney Unavailable Oanh DUPONT, PhD, Archie C Unavailable Cheikh Coelho MD Unavailable Latrell BIANCHI, Erin S Primary Care Provider [phone] Unavailable Primary Care Provider Unavailemanuel Hugo MD, PhD, Archie C Unavailable Jordan DUPONT, MPH, [facility] Unavailable Ron Ruano DO R Unavailable RON RUANO Attending Unavailable LIZBET CAST Attending Unavailable RON RUANO Attending Unavailable RON RUANO Attending Unavailable ALDEN, RON Attending Unavailable ALDEN, RON Attending Unavailable ALDEN, RON Attending Unavailable SERENE, LIZBET Attending Unavailable SERENE, LIZBET Attending Unavailable LATRELL, ERIN S Primary Care Physician LATRELL, ERIN S Referring Unavailable Diego Apodaca Attending Unavaila ble [place] [employer] CLEARING AGENT-SURFACE PLATE FINISHER, Dolores J Unavailable Mireya DUPONT, PhD, Carol Chavez Unavailable [phone] Diego Apodaca MD Unavailable Latrell DRUM TENDER-C Erin Dary Primary Care Provider Latrell DRUM TENDER-C Erin Dary Attending Provider Latrell DRUM TENDER-C Erin Dary Referring Provider [phone] Herve Ruanoy Admitting Unavailable Alden, Ron Attending Unavailable Latrell, Erin Dary Attending Unavailable Latrell, Erin Dary Referring Unavailable Latrell, Erin Dary Admitting Unavailable Latrell, Erin Dary Primary Care Unavailable Deisy DUPONT, Stevens Unavailable [place] [employer] CLEARING AGENT-SURFACE PLATE FINISHER, Dolores J Unavailable MORALEZ, YE Attending Unavailable SELF, SELF Referring Unavailable LATRELL, ERIN S Primary Care Unavailable SELF, SELF Referring Unavailable LATRELL, ERIN S Primary Care Unavailable MORALEZ, YE Referring Unavailable LATRELL, ERIN S Primary Care Unavailable MORALEZ, YE Referring Unavailable LATRELL, ERIN S Primary Care Unavailable CAROL SUMMERS Attending Unavailable MORALEZ, YE Referring Unavailable LATRELL, ERIN S Primary Care Unavailable LATRELL, ERIN S Primary Care Unavailable MORALEZ, YE Attending Unavailable MORALEZ, YE Referring Unavailable MORALEZ, YE Attending Unavailable MORALEZ, YE Referring Unavailable LATRELL, ERIN S Primary Care Unavailable MORALEZ, YE Attending Unavailable MORALEZ, YE Referring Unavailable LATRELL, ERIN S Primary Care Unavailable MORALEZ, YE Attending Unavailable LATRELL, ERIN S Referring Unavailable LATRELL, ERIN S Primary Care Unavailable MORALEZ, YE Referring Unavailable MORALEZ, YE Attending Unavailable LATRELL, ERIN S Primary Care Unavailable JORDAN, ANDREAS Attending Unavailable JORDAN, ANDREAS Referring Unavailable LATRELL, ERIN S Primary Care Unavailable JORDAN, ANDREAS Attending Unavailable JORDAN, ANDREAS Referring Unavailable LATRELL, ERIN S Primary Care Unavailable MAILE CHAKRABORTY Attending Unavailable LATRELL ERIN Persaud Referring Unavailable ERIN SAMS Primary Care Unavailable LATRELL ERIN Persaud Referring Unavailable LATRELL ERIN Cori Primary Care Unavailable Allergies Allergy Classification Reported Allergen(s) Allergy Type Date of Onset Reaction(s) Facility (20 sources) gabapentin; Translations: [gabapentin] Drug Allergy 10-07-2022 Nausea Only, Diarrhea, Nausea (finding), Diarrhea (finding) [facility] (12 sources) metroNIDAZOLE; Translations: [metronidazole] Drug Allergy 11-26-2023 Nausea (finding) [facility] Medications Current Medications Medication Drug Class(es) Dates Sig (Normalized) Sig (Original) amylase 289129 unt / lipase 29121 unt / protease 250803 unt delayed release oral capsule (18 sources) Start: 11-22-2023 Pancrelipase, Joq-Ofeu-Apms, (Creon) 72156-037348 units Cap DR Particles Please take one cap with each meal, and one cap with each snack. 120 capsule 11/22/2023 Active Start: 09-10-2022 Pancrelipase, Qsr-Lcas-Zzln, (Creon) 61787-957075 units Cap DR Particles Indications: Exocrine pancreatic insufficiency Take two caps with each meal and one cap with each snack 210 capsule 1 09/10/2022 Active ARIPiprazole (1 source) Atypical Antipsychotic Abilify A ctive busPIRone (1 source) BuSpar Active cetirizine hydrochloride 10 mg oral tablet (1 source) Histamine-1 Receptor Antagonist Start: 024 cetirizine 10 mg Tab Refills(s) 0 Start Date: 02/07/24 Status: Ordered cholecalciferol 0.01 mg oral tablet (8 sources) Vitamin D take 1 tablet by mouth once daily cholecalciferol 10 MCG (400 UNIT) tablet Take 1 tablet by mouth daily. 0 Active sugar-free cholestyramine resin 4000 mg powder for oral suspension (1 source) Bile Acid Sequestrant Start: 024 cholestyramine 4 g/5 g Oral Pwdr 1 packet(s), Oral, BID, 60 EA, Refill(s) 6, [id number], 154, cm, 02/07/24 8:50:00 EDT, Height/Length Dosing Start Date: 02/07/24 Status: Ordered cyproheptadine hydrochloride 4 mg oral tablet (8 sources) Start: take 1 tablet by mouth four times daily as needed Cyproheptadine 4 MG tablet Take 1 tablet by mouth 4 times daily as needed for Other (flushing). Flushing: periactin 4 mg every 6 hours as needed. Will start @ night as it can cause dizziness, drowsiness 60 tablet 3 07/08/2022 Active dicyclomine hydrochloride 10 mg oral capsule (9 sources) Anticholinergic Start: take 1 capsule by mouth four times daily as needed for muscle spasms Dicyclomine 10 MG capsule Take 1 capsule by mouth 4 times daily as needed for Abdominal Spasms for up to 7 days. 28 capsule 12/10/2023 Active 0.4 ml enoxaparin sodium 100 mg/ml prefilled syringe (16 sources) Low Molecular Weight Heparin Start: End: Enoxaparin Sodium 40 MG/0.4ML injection Indications: DVT/PE prophylaxis Inject one syringe (0.4 mL) under the skin every 24 hours. 10 mL 0 05/29/2022 Active Start: 05-22-2022 End: 05-29-2022 Enoxaparin Sodium (LOVENOX) injection 40 mg lamoTRIgine 25 mg oral tablet (20 sources) Mood Stabilizer, Anti-epileptic Agent Start: 02-07-2024 lamotrigine 25 mg Tab Refills(s) 0 Start Date: 02/07/24 Status: Ordered take 0.5 tablet by mouth once da buck lamoTRIgine 100 MG tablet Take 0.5 tablets by mouth daily. Active lamoTRIgine 100 MG tablet daily. Active take 2 tablets by mouth once kayden ly lamoTRIgine 25 MG tablet Take 2 tablets by mouth daily. 0 Active loperamide hydrochloride 2 mg oral capsule (10 sources) Opioid Agonist Loperamide 2 MG capsule Take [...] 1 ml octreotide 0.1 mg/ml prefilled syringe (20 sources) Somatostatin Analog Start: 2023 End: 2023 inject 1 mL by subcutaneous injection three times daily as needed Octreotide Acetate 100 MCG/ML Solution Prefilled Syringe prefilled syringe Inject 1 mL under the skin 3 times daily as needed for Other (carcinoid syndrome). 90 mL 03/17/2024 Active Start: 10-18-2023 Octreotide chalo tierney (SandoSTATIN [...] by mouth as needed. 0 Active ondansetron 8 mg disintegrating oral tablet (19 sources) Serotonin-3 Receptor Antagonist Start: 04-06-2024 End: 07-05-2024 take 1 tablet by mouth every six hours as needed Ondansetron 8 MG Tab Dispersible tablet Take 1 tablet by mouth every 6 hours as needed for Nausea / Vomiting. 270 tablet 04/06/2024 07/05/2024 Active Start: 06-30-2023 End: 09-28-2023 take 1 tablet [...] Active oxyCODONE hydrochloride 5 mg oral tablet (20 sources) Opioid Agonist Start: 01-25-2024 oxyCODONE 5 mg Tab 21 EA, 0 Refill(s), TAKE 1 TABLET BY MOUTH EVERY 8 HOURS NEEDED FOR SEVERE PAIN FOR UP TO 7 DAYS, Refills(s) 0 Start Date: 01/25/24 Status: Ordered Start: 12-10-2023 take 1 tablet by jodi th every eight hours as needed for pain oxyCODONE 5 MG tablet Indications: Abdominal pain, unspecified abdominal location Take 1 tablet by mouth every 8 hours as needed for Severe Pain for up to 7 days. 21 tablet 12/10/2023 Active Start: 05-28-2022 End: 05-29-2022 take 1 tablet [...] 1 tablet by mouth daily. 0 Active Probiotic Product (PROBIOTIC PO) (7 sources) Probiotic Produc t (PROBIOTIC PO) Take by mouth. + Prebiotic Active vancomycin 125 mg oral capsule (4 [...] Mild Pain. Active 500 ml albumin human, halfway 50 mg/ml injection (1 source) Human Serum [...] 05-29-2022 diphenhydrAMINE (BENADRYL) injection 25 mg FLUoxetine 20 mg oral capsule (20 sources) Serotonin Reuptake Inhibitor Start: 08-17-2023 End: 08-16-2024 FLUoxetine 20 mg Cap 90 EA, 0 Refill(s), TAKE 1 CAPSULE (20 MG) BY MOUTH IN THE MORNING, Refills(s) 0 Start Date: 01/25/24 Status: Ordered Start: 05-25-2022 End: 06-09-2022 FLUoxetine (PROZAC) capsule 40 mg take 2 capsules by m outh once daily FLUoxetine 20 MG capsule Take 2 capsules by mouth daily. Active PROzac Active gabapentin 100 mg oral [...] 0 mg take 1 tablet by jodi every six hours as needed Ibuprofen 200 MG tablet Take 1 tablet by mouth every 6 hours as needed for Mild Pain. 0 Active iodixanol (VISIPAQUE) injection 320 mg/mL for [facility] (1 source) Start: 03-31-2022 End: 03-31-2022 iodixanol (VISIPAQUE) injection 320 mg/mL for [facility] Iohexol (OMNIPAQUE) 300 MG/ML 50 mL in Water liquid (free water) 950 mL (2 sources) Start: 02-07-2024 End: 02-07-2024 take 1 dose by mouth once 15,000 mg, Oral, ONCE, 1 dose, On 02/07/24 at 1300, For administration to inpatients, to be given by RN on inpatient nursing unit., CT Procedure Start: 11-06-2023 End: 11-06-2023 take 1 dose by mouth once 15,000 mg, Oral, ONCE, 1 dos e, On 11/06/23 at 1200, For administration to inpatients, to be given by RN on inpatient nursing unit., CT Procedure Iohexol (OMNIPAQUE) 300 MG/M L vial 50 mL (1 source) Start: 08-19-2022 End: 08-19-2022 Iohexol (OMNIPAQUE) 300 MG/M L vial 50 mL iohexol (OMNIPAQUE) 350 MG/M L injection 1-171 mL (6 sources) Start: 04-13-2024 End: 04-13-2024 1-171 mL, Intravenous, ONCE, 1 dose, On Eliana 04/13/24 at 1815, Extravasation Risk, CT Procedure Start: 02-07-2024 End: 02-07-2024 1-171 mL, Intravenous, ONCE, 1 dose, On 02/07/24 at 1400, Extravasation Risk, CT Procedure Start: 11-06-2023 End: 11-06-2023 1-171 mL, Intravenous, ONCE, 1 dose, On 11/06/23 at 1200, Extravasation Risk, CT Procedure Start: 10-22-2022 End: 10-22-2022 iohexol (OMNIPAQUE) 350 MG/M L injection 1-171 mL Start: 08-19-2022 End: 08-19-2022 iohexol (OMNIPAQUE) 350 MG/M L injection 1-171 mL Iohexol (OMNIPAQUE) 9 MG/ML Bottle 1,000 mL (1 source) Start: 04-13-2024 End: 04-13-2024 take 1 dose by mouth once 1,000 mL, Oral, ONCE, 1 dose, On Eliana 04/13/24 at 1815, For administration to inpatients, to be given by RN on inpatient nursing unit., CT Procedure 50 ml magnesium sulfate 80 mg/ml injection (5 sources) Start: 05-28-2022 End: 05-28-2022 [...] pantoprazole 40 mg delayed release oral tablet (5 sources) Proton Pump Inhibitor Start: 05-28-2022 End: 05-29-2022 pantoprazole (PROTONIX) tablet DR 40 mg Start: 05-23-2022 End: 05-28-2022 pantoprazole (PROTONIX) inje ction 40 mg End: 01-06-2024 take 2 tablets by mouth once daily pantoprazole [address] tablet DR Take 2 tablets by mouth daily. 01/06/2024 Discontinued (Patient Preference) phenol 14 mg/ml mouthwash (1 source) Start: 05-22-2022 End: 05-29-2022 phenol (CHLORASEPTIC) 1.4 % oral spray 2 spray polyethylene glycol 3350 20970 mg powder for oral solution (2 sources) Osmotic Laxative Start: 04-23-2022 End: 06-09-2022 polyethylene glycol 17 GM/SCOOP Powder powder 11 AM: Take entire contents over 2 hours as instructed. 250 g 0 04/23/2022 06/09/2022 Discontinued (Therapy completed) 100 ml potassium chloride 0.1 meq/ml injection (1 source) Start: 05-22-2022 End: 05-22-2022 potassium chloride 10 mEq in sterile water 100 ml premix IVPB Vit-DSS-Fe Cbn-FA ( AD PO) (3 sources) End: 01-06-2024 Vit-DSS-Fe Cbn-FA ( AD PO) Take by mouth. 01/06/2024 Discontinued (Patient Preference) Vit-DSS -Fe Cbn-FA ( AD PO) Take by mouth. Active sennosides, halfway 8.6 mg oral tablet (3 sources) Start: 05-27-2022 End: 06-09-2022 take 1 tablet by mouth once daily as needed for constipation senna 8.6 MG tablet Take 1 tablet by mouth daily as needed for Constipation. Continue stool softeners while on narcotics. Hold for loose stools. 0 05/28/2022 06/09/2022 Discontinued (Therapy completed) 20 ml sodium chloride 9 mg/ml injection (8 sources) Start: 04-13-2024 End: 04-13-2024 1-100 mL, Intravenous, ONCE NEEDED, 1 dose, Starting on Eliana 04/13/24 at 1800, Until Eliana 04/13/24 at 1900, Flush, CT Procedure Start: 02-07-2024 End: 02-07-2024 1-100 mL, Intravenous, ONCE NEEDED, 1 dose, Starting on 02/07/24 at 1346, Until 02/07/24 at 1347, Flush, CT Procedure Start: 11-06-2023 End: 11-06-2023 1-100 mL, Intravenous, [...] Date Documented Da te Episodic/Chronic Abdominal pain (9 sources) Unspecified abdominal pain; Translations: [Right lower quadrant pain] Onset: 02-03-2022 Episodic Anxiety disorders (1 source) Mixed anxiety and depressive disorder 01-25-2024 Chronic Biliary tract disease (1 source) Cholelithiasis without obstruction 01-25-2024 Episodic Cancer of cervix (1 source) Atypical squamous cells of undetermined significance on cervical Papanicolaou smear 01-25-2024 Episodic Cancer of colon (2 sources) Malignant tumor of appendix; 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] 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-2022 Chronic Cardiac dysrhythmias (5 sources) Tachycardia; Translations: [Tachycardia, unspecified] Onset: 10-10-2022 Episodic Gastrointestinal hemorrhage (1 source) Melena; Translations: [Melena] Onset: 04-13-2024 Episodic Genitourinary symptoms and ill-defined conditions (2 sources) Increased frequency of urination; Translations: [Frequency of micturition] Onset: 12-22-2021 Resolved: 12-22-2021 Episodic Headache; including migraine (1 source) Migraine 01-25-2024 Chronic Immunizations and screening for infectious disease (2 sources) Raised antinuclear antibody; Translations: [Raised antibody titer] Episodic Intestinal infection (1 source) Clostridium difficile colitis 01-25-2024 Episodic Malaise and fatigue (4 sources) Other [...] Neoplasms of unspecified nature or uncertain behavior (7 sources) Neoplasm of uncertain behavior of appendix; Translations: [Neoplasm of appendix] Onset: 10-07-2022 03-09-2023 Episodic Noninfectious gastroenteritis (1 source) Noninfective gastroenteritis and colitis, unspecified; Translations: [Noninfective gastroenteritis and colitis, unspecified] Onset: 04-13-2024 Episodic Nonmalignant breast conditions (7 sources) Unspecified lump in unspecified breast; Translations: [Solitary cyst of left breast] Onset: 09-23-2022 Episodic Nutritional deficiencies (2 sources) Vitamin D deficiency, unspecified; Translations: [Vitamin D deficiency] Onset: 09-04-2022 01-25-2024 Chronic Nutritional deficiencies (1 source) Iron deficiency 01-25-2024 Episodic Other connective tissue disease (1 source) Fibromyalgia; Translations: [Fibromyalgia] Episodic Other connective tissue disease (1 source) Pain in lower limb 01-25-2024 Episodic Other endocrine disorders (20 sources) Carcinoid syndrome; 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] Onset: 09-03-2022 Chronic Other endocrine disorders (3 sources) Carcinoid syndrome; 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] Onset: 12-01-2022 Chronic Other endocrine disorders (1 source) Hyperinsulinism 01-25-2024 Chronic Other gastrointestinal disorders (3 sources) Diarrhea; Translations: [Diarrhea, unspecified] Onset: 01-25-2024 01-13-2024 Episodic Other gastrointestinal disorders (1 source) H/O: colitis 01-25-2024 Episodic Other infections; including parasitic (1 source) H/O: infectious disease; Translations: [Personal history of other infectious and parasitic diseases] Onset: 01-25-2024 Episodic Other liver diseases (1 source) Elevated liver enzymes level; Translations: [Abnormal levels of other serum enzymes] 11-26-2023 Episodic Other liver diseases (1 source) Enzyme level - finding; Translations: [Abnormal levels of other serum enzymes] Onset: 02-07-2024 Episodic Other lower respiratory disease (3 sources) Dyspnea; Translations: [Shortness of breath] Episodic Other nervous system disorders (1 source) Postoperative pain ; Translations: [Other acute postprocedural pain] Episodic Other nutritional; endocrine; and metabolic disorders (18 sources) Obese class I; Translations: [Obesity, unspecified] Onset: 10-22-2022 10-22-2022 Chronic Other and delivery including normal (2 sources) Third trimester ; Translations: [Encounter for supervision of normal , unspecified, third trimester] 08-18-2023 Episodic Personality disorders (1 source) Borderline personality disorder 01-25-2024 Chronic Regional enteritis and ulcerative colitis (1 source) Ulcerative colitis Onset: 04-13-2024 Chronic Residual codes; unclassified (1 source) Pain, unspecified; Translations: [Pain, unspecified] Onset: 04-19-2024 Episodic Unclassified (1 source) CONTACT W/AND (SUSP) EXPOS COVID-19; Translations: [CONTACT W/AND (SUSP) EXPOS COVID-19] Onset: 04-06-2022 Unclassified (2 sources) OB Reminders Onset: 03-15-2023 03-15-2023 Past or Other Problems Problem Classification Problem Date Documented Da te Episodic/Chronic Appendicitis and other appendiceal conditions (1 source) Unspecified acute appendicitis; Translations: [UNSPECIFIED ACUTE APPENDICITIS] Onset: 02-10-2022 Episodic Mood disorders (20 sources) Mood disorders Onset: 06-09-2022 Resolved: 11-08-2023 06-09-2022 Nausea and vomiting (1 source) Nausea; Translations: [NAUSEA] Onset: 08-14-2022 Episodic Other aftercare (1 source) Other supervisor intermediates (current) drug therapy; Translations: [OTH WATER AND SEWER SYSTEMS SUPERINTENDENT CURRENT DRUG THERAPY] Onset: 04-09-2022 Episodic Other [...] Translations: [DIARRHEA UNSPECIFIED] Onset: 06-03-2022 Episodic Other liver diseases (2 sources) Abnormal levels of other serum enzymes; Translations: [Abnormal levels of other serum enzymes] Onset: 11-26-2023 Episodic Other screening for suspected conditions (not [...] CT ABDOMEN/PELVIS WITH AND W ITHOUT CONTRASTon 04-13-2024 CT ABDOMEN/PELVIS WITH AND WITHOUT CONTRAST EXAM: CT ABDOMEN/PELVIS WITH AND WITHOUT CONTRAST, 04/13/2024 18:59 PM CLINICAL INDICATIONS: Neuroendocrine tumor; Metastatic neuroendocrine cancer. New abdominal pain. C7A.8:Primary malignant neuroendocrine tumor of appendix MUST BE DONE WITH TRIPLE PHASE TECHNIQUE PLEASE; COMPARISON: CT abdomen pelvis dated February 07, 2024 TECHNIQUE: CT scanning was performed of the abdomen and pelvis before and after the administration of intravenous contrast. PROTOCOL: Standard. CONTRAST: iohexol (OMNIPAQUE) 350 MG/ML injection 1-171 mL; Route of Administration: Intravenous; Dose: 90 mL. FINDINGS Lung Bases: Normal. Liver: Stable mild hepatomegaly. Gallbladder: Cholecystectomy. Bile Ducts: Normal in caliber. Spleen: Normal. Pancreas: Normal. Adrenals: Normal. Right Kidney: Normal. No hydronephrosis. Left Kidney: Normal. No hydronephrosis. Gastrointestinal: Status post right hemicolectomy with anastomosis. No dilated bowel loops. No focal bowel wall thickening. Peritoneum/retroperi toneum: No ascites. Lymph nodes: No enlarged or morphologically abnormal lymph nodes. Vasculature: The abdominal aorta is normal in course and caliber. Patent celiac and superior mesenteric arteries. Patent portal, splenic, and superior mesenteric veins. Bladder: Normal. Pelvic Organs: Normal. Body Wall: Normal. Bones: Normal for patient age. No aggressive lesion. IMPRESSION: No evidence of metastatic disease in the abdomen and pelvis. Normal [facility] CT Abdomen and Pelvis WO and W contrast Jason 04-13-2024 IMPRESSION: No evidence of metastatic disease in the abdomen and pelvis. OLOGY EXAM: CT ABDOMEN/PELVIS WITH AND WITHOUT CONTRAST, 04/13/2024 18:59 PM CLINICAL INDICATIONS: Neuroendocrine tumor; Metastatic neuroendocrine cancer. New abdominal pain. C7A.8:Primary malignant neuroendocrine tumor of appendix MUST BE DONE WITH TRIPLE PHASE TECHNIQUE PLEASE; COMPARISON: CT abdomen pelvis dated February 07, 2024 TECHNIQUE: CT scanning was performed of the abdomen and pelvis before and after the administration of intravenous contrast. PROTOCOL: Standard. CONTRAST: iohexol (OMNIPAQUE) 350 MG/ML injection 1-171 mL; Route of Administration: Intravenous; Dose: 90 mL. FINDINGS Lung Bases: Normal. Liver: Stable mild hepatomegaly. Gallbladder: Cholecystectomy. Bile Ducts: Normal in caliber. Spleen: Normal. Pancreas: Normal. Adrenals: Normal. Right Kidney: Normal. No hydronephrosis. Left Kidney: Normal. No hydronephrosis. Gastrointestinal: Status post right hemicolectomy with anastomosis. No dilated bowel loops. No focal bowel wall thickening. Peritoneum/retroperi toneum: No ascites. Lymph nodes: No enlarged or morphologically abnormal lymph nodes. Vasculature: The abdominal aorta is normal in course and caliber. Patent celiac and superior mesenteric arteries. Patent portal, splenic, and superior mesenteric veins. Bladder: Normal. Pelvic Organs: Normal. Body Wall: Normal. Bones: Normal for patient age. No aggressive lesion. RADIOLOGY Mandi Montiel DO - 04/13/2024 EXAM: CT ABDOMEN/PELVIS WITH AND WITHOUT CONTRAST, 04/13/2024 18:59 PM CLINICAL INDICATIONS: Neuroendocrine tumor; Metastatic neuroendocrine cancer. New abdominal pain. C7A.8:Primary malignant neuroendocrine tumor of appendix MUST BE DONE WITH TRIPLE PHASE TECHNIQUE PLEASE; COMPARISON: CT abdomen pelvis dated February 07, 2024 TECHNIQUE: CT scanning was performed of the abdomen and pelvis before and after the administration of intravenous contrast. PROTOCOL: Standard. CONTRAST: iohexol (OMNIPAQUE) 350 MG/ML injection 1-171 mL; Route of Administration: Intravenous; Dose: 90 mL. FINDINGS Lung Bases: Normal. Liver: Stable mild hepatomegaly. Gallbladder: Cholecystectomy. Bile Ducts: Normal in caliber. Spleen: Normal. Pancreas: Normal. Adrenals: Normal. Right Kidney: Normal. No hydronephrosis. Left Kidney: Normal. No hydronephrosis. Gastrointestinal: Status post right hemicolectomy with anastomosis. No dilated bowel loops. No focal bowel wall thickening. Peritoneum/retroperi toneum: No ascites. Lymph nodes: No enlarged or morphologically abnormal lymph nodes. Vasculature: The abdominal aorta is normal in course and caliber. Patent celiac and superior mesenteric arteries. Patent portal, splenic, and superior mesenteric veins. Bladder: Normal. Pelvic Organs: Normal. Body Wall: Normal. Bones: Normal for patient age. No aggressive lesion. IMPRESSION IMPRESSION: No evidence of metastatic disease in the abdomen and pelvis. [facility] Radiology Study observation (narrative) [facility] CT Abdomen and Pelvis WO and W contrast IVOrdered By: Mandi Montiel on 04-13-2024 [facility] Work Phone: US breast BI limitedon 04-03 US breast BI limited [facility] [place] [address] [place] [address] Ultrasound Report Signed Patient: Zainab Mcclure MR#: [id number] : 1995 Acct:[id number] Age/Sex: 28 / F ADM Date: 04/03/24 Loc: [facility] Room: Type: [facility] Attending Dr: Erin Sams DRUM TENDER-C Ordering Provider: Erin Sams CNP Date of Service: 04/03/24 US/US breast BI limited: N63.0 Copies to: Erin Sams CNP BILATERAL COMPLETE BREAST ULTRASOUND CLINICAL DATA: Bilateral palpable breast lumps COMPARISON: September 23, 2022 mammogram and ultrasound from [facility] Real-time ultrasound evaluation of all 4 quadrants as well as the retroareolar region was performed bilaterally. Special attention was given to the sites were patient reported palpable lumps. There is normal breast architecture. No discrete cystic or solid masses are identified. US/US breast BI limited IMPRESSION: NO ULTRASOUND FINDINGS TO ACCOUNT FOR PATIENT'S PALPABLE LUMPS. CLINICAL MANAGEMENT IS THEREFORE RECOMMENDED. Impression dictated by: Beata Anthony M.D.04/03/2024 12:09 PM Dictation Location: [facility] Tech: Johana Edmonds Transcribed By: JOSE ELIAS 04/03/24 1209 Dictated By: Beata Anthony MD 04/03/24 0958 Signed By: 04/03/24 1209 Normal [facility] CT ABDOMEN/PELVIS WITH AND W ITHOUT CONTRASTon 02-08-2024 CT ABDOMEN/PELVIS WITH AND WITHOUT CONTRAST EXAM: CT ABDOMEN/PELVIS WITH AND WITHOUT CONTRAST COMPARISON: 11/06/2023 CLINICAL INDICATIONS: hx of neuroendocrine cancer TECHNIQUE: CT scanning was performed through the abdomen prior to the administration of intravenous contrast. Following the administration of intravenous contrast, CT scanning was performed through the abdomen during the arterial phase and through the abdomen and pelvis during the portal venous phase. Oral contrast was administered. PROTOCOL: Liver protocol FINDINGS: LOWER THORAX: 5 mm subpleural left lower lobe nodule, stable since 02/03/2022, likely benign. LIVER: Unremarkable BILIARY: Cholecystectomy. PANCREAS: Unremarkable SPLEEN: Unremarkable ADRENAL GLANDS: Unremarkable KIDNEYS/URETERS: Unremarkable PELVIC ORGANS/BLADDER: Unremarkable GI TRACT: Right hemicolectomy. Mild near diffuse colonic mural thickening. No bowel obstruction. PERITONEUM: No free air or fluid LYMPH NODES: No enlarged lymph nodes VESSELS: Unremarkable BONES AND SOFT TISSUES: Unremarkable IMPRESSION: No evidence of metastatic disease in the abdomen or pelvis. Near diffuse mild colonic mural thickening, compatible with nonspecific colitis. Piotr Topete M.D. This report has been electronically signed [...] error, please notify the sender immediately at [phone] and permanently delete the original report and destroy any copies or printouts. Normal [facility] Ambulatory Visit Summaryon 0 02-07-2024 Ambulatory Visit Summary Ambulatory Visit Summary ZAINAB SWIFT :1995 Visit Date:02/07/2024 Ambulatory Visit Instructions Your Diagnosis Unspecified abdominal pain Diarrhea History of Clostridium difficile colitis Neuroendocrine carcinoma Elevated liver enzymes Your Care Team Attending Physician - Paulie DUPONT, Diego Umana Primary Care Physician - ERIN SAMS CNP Referring Physician - ERIN SAMS CNP This Is Your Medications List cholestyramine (cholestyramine 4 g/5 g Oral Pwdr) Contact prescribing physician if questions or concerns cetirizine (cetirizine 10 mg Tab) fluoxetine (FLUoxetine 20 mg Cap) lamotrigine (lamotrigine 25 mg Tab) oxycodone (oxyCODONE 5 mg Tab) Procedures Performed Partial resection of small bowel using robotic assistance (05/27/2022), Right hemicolectomy (05/27/2022), Laparoscopic appendectomy (02/03/2022), section, Cholecystectomy. Discharge Vitals Heart Rate (Peripheral) 70 Respiratory Rate 18 Blood Pressure 116/70 Height 154 cm Height 61 in What to do next You Need to Complete the Following Celiac Disease Comprehensive, Blood, Routine collect, 02/07/24, Order for future visit, Lab Collect, Unspecified abdominal pain Invalid Interpretation Code Diarrhea [facility] CBC AND ELECTRONIC DIFFon Basophils (Bld) [#/Vol] 0.06 10*3/uL Normal 0.00-0.15 [facility] Comment on above: Performed By: #### P SD, SIMFXB, PSE #### [facility] (DEFAULT) [address] [address] Basophils/100 WBC (Bld) 0.9 % Normal [facility] Comment on above: Performed By: #### P SD, SIMFXB, PSE #### [facility] (DEFAULT) [address] [address] DIFF STATUS Electronic Differential Normal [facility] Comment on above: Performed By: #### P SD, SIMFXB, PSE #### [facility] (DEFAULT) [address] [address] Eosinophils (Bld) [#/Vol] 0.12 10*3/uL Normal 0.00-0.42 [facility] Comment on above: Performed By: #### P SD, SIMFXB, PSE #### [facility] (DEFAULT) [address] [address] Eosinophils/100 WBC (Bld) 1.8 % Normal [facility] Comment on above: Performed By: #### P SD, SIMFXB, PSE #### [facility] (DEFAULT) [address] [address] Hematocrit (Bld) [Volume fraction] 38.9 % Normal 34.9-44.3 [facility] Comment on above: Performed By: #### P SD, SIMFXB, PSE #### [facility] (DEFAULT) [address] [address] Hemoglobin (Bld) [Mass/Vol] 12.8 g/dL Normal 11.4-15.2 [facility] Comment on above: Performed By: #### P SD, SIMFXB, PSE #### [facility] (DEFAULT) [address] [address] Immature Grans % 0.1 % Normal [facility] Comment on above: Performed By: #### P SD, SIMFXB, PSE #### [facility] (DEFAULT) [address] [address] Immature Grans Absolute < Normal <=0.08 [facility] Comment on above: Performed By: #### P SD, SIMFXB, PSE #### [facility] (DEFAULT) [address] [address] Lymphocytes (Bld) [#/Vol] 2.05 10*3/uL Normal 1.16-3.51 [facility] Comment on above: Performed By: #### P SD, SIMFXB, PSE #### [facility] (DEFAULT) [address] [address] Lymphocytes/100 WBC (Bld) 30.3 % Normal [facility] Comment on above: Performed By: #### P SD, SIMFXB, PSE #### [facility] (DEFAULT) [address] [place] [address] MCV (RBC) [Entitic vol] 86.6 fL Normal 79.6-97.7 [facility] Comment on above: Performed By: #### P SD, SIMFXB, PSE #### [facility] (DEFAULT) [address] [place] [address] Mean Cell Hgb 28.5 pg Normal 25.9-33.9 [facility] Comment on above: Performed By: #### P SD, SIMFXB, PSE #### [facility] (DEFAULT) [address] [place] [address] Mean Cell Hgb Conc 32.9 g/dL Normal 31.4-35.9 [facility] Comment on above: Performed By: #### P SD, SIMFXB, PSE #### [facility] (DEFAULT) [address] [place] [address] Monocytes (Bld) [#/Vol] 0.43 10*3/uL Normal 0.22-0.87 [facility] Comment on above: Performed By: #### P SD, SIMFXB, PSE #### [facility] (DEFAULT) [address] [address] Monocytes/100 WBC (Bld) 6.4 % Normal [facility] Comment on above: Performed By: #### P SD, SIMFXB, PSE #### [facility] (DEFAULT) [address] [address] Nucleated RBC 0.0 /100 WBC Normal <=0.2 [facility] Comment on above: Performed By: #### P SD, SIMFXB, PSE #### [facility] (DEFAULT) [address] [address] Platelet mean volume (Bld) [Entitic vol] 9.5 fL Normal 8.5-12.2 [facility] Comment on above: Performed By: #### P SD, SIMFXB, PSE #### [facility] (DEFAULT) [address] [place] [address] Platelets (Bld) [#/Vol] 307 10*3/uL Normal 150-393 [facility] Comment on above: Performed By: #### P SD, SIMFXB, PSE #### [facility] (DEFAULT) [address] [place] [address] RBC (Bld) [#/Vol] 4.49 10*6/uL Normal 3.91-5.04 [facility] Comment on above: Performed By: #### P SD, SIMFXB, PSE #### [facility] (DEFAULT) [address] [place] [address] RBC Distribution 12.0 % Normal 10.8-14.9 [facility] Comment on above: Performed By: #### P SD, SIMFXB, PSE #### [facility] (DEFAULT) [address] [place] [address] Segs + Bands Auto 60.5 % Normal [facility] Comment on above: Performed By: #### P SD, SIMFXB, PSE #### [facility] (DEFAULT) [address] [place] [address] Segs + Bands,Absolute Auto 4.09 K/uL Normal 1.64-7.28 [facility] Comment on above: Performed By: #### P SD, SIMFXB, PSE #### [facility] (DEFAULT) [address] [place] [address] WBC (Bld) [#/Vol] 6.76 10*3/uL Normal 3.99-11.19 [facility] Comment on above: Performed By: #### P SD, SIMFXB, PSE #### [facility] (DEFAULT) [address] [address] CEAon 02-07-2024 Cea <2.0 Normal <=5.0 [facility] Comment on above: Result Comment: This test was performed on the [employer] Immunoassay platform which is a 2-step sandwich chemiluminescent immunoassay. It is important to note that assays using different manufacturers and/or methods may not be comparable. Performed By: #### F ERIB, TSH #### [facility] (DEFAULT) [address] [address] CHROMOGRANIN Aon 02-07-2024 Chromogranin A <20 Normal <93 [facility] Comment on above: Result Comment: ADDITIONAL INFORMATION The testing method is a homogeneous time-resolved immunofluorescent assay manufactured by [employer] and performed on the Loop88 Kryptor Compact Plus. Values obtained with different [...] examination and other findings. Test Performed by: [place] [address] Crystallizer Operator: Jami Sher Ph.D.; CLIA# [id number] Performed By: #### P SD, SIMFXB, PSE #### [facility] (DEFAULT) [address] [address] COMPREHENSIVE METABOLIC PANE Shamir 02-07-2024 Albumin [Mass/Vol] 4.8 g/dL Normal 3.5-5.0 [facility] Comment on above: Performed By: #### P SD, SIMFXB, PSE #### [facility] (DEFAULT) [address] [address] ALP [Catalytic activity/Vol] 56 U/L Normal 32-126 [facility] Comment on above: Performed By: #### P SD, SIMFXB, PSE #### [facility] (DEFAULT) [address] [place] [address] ALT [Catalytic activity/Vol] 41 U/L Normal 9-48 [facility] Comment on above: Performed By: #### P SD, SIMFXB, PSE #### [facility] (DEFAULT) [address] [place] [address] Anion gap [Moles/Vol] 11 mmol/L Normal 7-17 [facility] Comment on above: Performed By: #### P SD, SIMFXB, PSE #### [facility] (DEFAULT) [address] [place] [address] AST [Catalytic activity/Vol] 26 U/L Normal 10-39 [facility] Comment on above: Performed By: #### P SD, SIMFXB, PSE #### [facility] (DEFAULT) [address] [place] [address] Bilirubin [Mass/Vol] 0.7 mg/dL Normal <1.5 [facility] Comment on above: Performed By: #### P SD, SIMFXB, PSE #### [facility] (DEFAULT) [address] [place] [address] Calcium [Mass/Vol] 9.5 mg/dL Normal 8.6-10.5 [facility] Comment on above: Performed By: #### P SD, SIMFXB, PSE #### [facility] (DEFAULT) [address] [place] [address] Chloride [Moles/Vol] 98 mmol/L Normal 98-108 [facility] Comment on above: Performed By: #### P SD, SIMFXB, PSE #### [facility] (DEFAULT) [address] [place] [address] CO2 [Moles/Vol] 29 mmol/L Normal 21-31 [facility] Comment on above: Performed By: #### P SD, SIMFXB, PSE #### [facility] (DEFAULT) [address] [place] [address] Creatinine [Mass/Vol] 0.58 mg/dL Normal 0.50-1.20 [facility] Comment on above: Performed By: #### P SD, SIMFXB, PSE #### [facility] (DEFAULT) [address] [place] [address] eGFR, CKD-EPI, Female > Normal >=60 [facility] Comment on above: Result Comment: Repo rted eGFR is based on the CKD-EPI 2020 equation using creatinine, age, and sex. Performed By: #### P SD, SIMFXB, PSE #### [facility] (DEFAULT) [address] [place] [address] Glucose [Mass/Vol] 108 mg/dL High 70-99 [facility] Comment on above: Performed By: #### P SD, SIMFXB, PSE #### [facility] (DEFAULT) [address] [place] [address] Osmolality [Osmolality] 280 mosm/kg Normal 278-305 [facility] Comment on above: Performed By: #### P SD, SIMFXB, PSE #### [facility] (DEFAULT) [address] [place] [address] Potassium [Moles/Vol] 4.0 mmol/L Normal 3.5-5.0 [facility] Comment on above: Performed By: #### P SD, SIMFXB, PSE #### [facility] (DEFAULT) [address] [place] [address] Protein [Mass/Vol] 7.5 g/dL Normal 6.4-8.3 [facility] Comment on above: Performed By: #### P SD, SIMFXB, PSE #### [facility] (DEFAULT) [address] [place] [address] Sodium [Moles/Vol] 134 mmol/L Low 135-145 [facility] Comment on above: Performed By: #### P SD, SIMFXB, PSE #### [facility] (DEFAULT) [address] [place] [address] Urea nitrogen [Mass/Vol] 6 mg/dL Low 7-25 [facility] Comment on above: Performed By: #### P MUNIR, RUFINO PSE #### [facility] (DEFAULT) [address] [place] [address] Urea nitrogen/Creatinine [Mass ratio] 10 mg/mg Normal [facility] Comment on above: Performed By: #### P MUNIR, SIMFXB, PSE #### [facility] (DEFAULT) [address] [place] [address] Gastroenterology Office/Clin ic Noteon 02-07-2024 Gastroenterology Office/Clinic Note Gastroenterology Office/Clinic Note Chief Complaint diarrhea HPI Staff Patient is a 28 year old female who was referred by Latrell for diarrhea w/associated abd pain. Hx C. Diff. Hx appendectomy, hemicolectomy and C. section. 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 Last colon 03/2022- prior to the hemicolectomy @ [facility]. Has a pelvic CT later this week at [facility]. PCP gave Augmentin in September and Azithromycin in December for colitis . Abdominal pain: When did you first have this pain: 08/2023 after giving Quality (sharp, dull): cramping Constant or comes or go: comes and goes location and radiation: LLQ, RUQ and lower back Relation to food: in between/after meals Improving or worsening factors factors: Bentyl did not help Right hemicolectomy 05/27/22 @ [facility]: FINDINGS: There was mucinous implants along the RLQ, pelvis and small bowel mesentery. Pathology: Result Comments: A. Falciform ligament, excision: Benign fibroadipose tissue, [...] of acellular mucin and reactive mesothelial proliferation. CT 12/22/23 @ [facility]: Impression: 1. Postsurgical changes consistent with partial small bowel resection and right hemicolectomy. Sigmoid wall thickening may relate to lack of distention given the absence of oral contrast within this region. A mild colitis is possible but felt to be less likely. MRCP 03/11/23 @ [facility]: IMPRESSION: 1. Stable postoperative changes from right hemicolectomy. No definite evidence of recurrence or distant disease. 2. The previously seen lymph node in the anterior left hemiabdomen is not well visualized on this exam. Labs 12/02/23 @ [facility]: TSH: 3.169 AST: 38 (H) ALT 93 (H) C. Diff, enteric, O&P: negative Labs 11/26/23 @ [facility]: T-transglutaminase IgA Ab: < 1.2 A-1-A: 120 SMA: negative AMA: negative HUNTER: positive Iron: 79 Transferrin: 277 TIBC: 346 Iron Sat: 23 Ceruloplasmin: 31 History of Present Illness She had her gallbladder removed in June when she was , delivered in September and since then she is having 10-15 bowel movements a day Octreotide was helping significantly until then She tried Imodium in the past Review of Systems PHQ Score Initial Depression Screen Score: 0 SCORE Physical Exam Vitals & Measurements HR: 70(Peripheral) RR: 18 BP: 116/70 HT: 61 in HT: 154 cm General: in Nad Abdomen: Soft, NTND Assessment/Plan 1. Unspecified abdominal pain (R10.9: Unspecified abdominal pain) Ordered: Celiac Disease Comprehensive Colonoscopy (Hospital Procedure) 2. Diarrhea (R19.7: Diarrhea, unspecified) Her main symptom, she was found to have neuroendocrine tumor, well-differentiated in the appendix after appendectomy in 2021, status post right hemicolectomy as above She was taking octreotide every month subcutaneously and it was helping the symptoms In June 2023 she had her gallbladder removed, delivered in September and since then she has been having 10-15 bowel movements a day She has history of C. difficile in the past, tested multiple times negative No blood in stool I highly suspect bile acid induced diarrhea, but we will also check with her neuroendocrine oncologist for previous workup for her neuroendocrine tumor, she is on octreotide anyway Will get a colonoscopy for possible colitis on the CT Also will try cholestyramine twice daily, use Imodium as needed as well Check celiac disease, if positive will do EGD with duodenal biopsies Ordered: Celiac Disease Comprehensive Colonoscopy (Hospital Procedure) 3. History of Clostridium difficile colitis (Z86.19: Personal history of other infect (more content not included)... Normal [facility] Comment on above: Result Comment: Elec tronically Signed By: Paulie DUPONT, Diego Umana\.br\Date and Time Signed: 02/07/24 09:35 EDT LACTATE DEHYDROGENASEon 01-17 LD Total 110 U/L Normal 100-190 [facility] Comment on above: Performed By: #### P SD, SIMFXB, PSE #### [facility] (DEFAULT) [address] [address] TCCP - GOLDon 02-07-2024 CANCER CARE PROTOCOL Done Normal [facility] Comment on above: Performed By: #### F ERIB, TSH #### [facility] (DEFAULT) [address] [place] [address] Performed By: #### P SD, SIMFXB, PSE #### [facility] (DEFAULT) [address] [address] ALPHA 1 ANTITRYPSINon 2023 Alpha 1 antitrypsin [Mass/Vol] 125 mg/dL 84 - 218 mg/dL [facility] Alpha 1 Antitrypsin 125 mg/dL Normal 84-218 [facility] Comment on above: Performed By: #### Q IMM, A1AT, CERP #### [facility] (DEFAULT) [address] [address] [id number] PHENOTYP Timothy 11-26-2023 ALPHA 1 ANTITRYPSIN PHENOTYPE MM Normal [facility] Comment on above: Result Comment: A si ngle M isoform is detected. In the context of a normal aedch-0-fbtmezyddws concentration, this is consistent with an MM phenotype. ADDITIONAL INFORMATION Method: Isoelectric Focusing, This assay identifies the phenotype of the circulating dbesz-7-vciolxznfxj (A1A) protein. If the patient is on replacement therapy or has been recently transfused, the phenotype will detect patient and replacement or transfused plasma A1A protein. This test also cannot detect a null allele which could be responsible for an A1A deficiency. Performed By: #### P MUNIR, SIMFXB, PSE #### [facility] (DEFAULT) [address] [address] Wbzkz-3-Qjcxnnnsqbm S Allele 120 mg/dL Normal 100-190 [facility] Comment on above: Result Comment: ADDITIONAL INFORMATION Method: Nephelometry Test Performed by: [place] [address] Crystallizer Operator: Ed Russo M.D. Ph.D.; CLIA# [id number] Performed By: #### P SD, SIMFXB, PSE #### [facility] (DEFAULT) [address] [address] HUNTER SCREEN IFAon 11-26-2023 Anti Nuclear Antibody Pattern Homogenous/Diffuse Normal [facility] Comment on above: Performed By: #### P SD, SIMFXB, PSE #### [facility] (DEFAULT) [address] [address] Antinuclear Antibody, IFA Positive Abnormal Negative [facility] Comment on above: Performed By: #### P SD, SIMFXB, PSE #### [facility] (DEFAULT) [address] [place] [address] Quant Antinuclear Antibody 1:80 Abnormal (none) [facility] Comment on above: Performed By: #### P SD, SIMFXB, PSE #### [facility] (DEFAULT) [address] [place] [address] ANTI MITOCHONDRIAL ANTIBODYo n 11-26-2023 Anti-Mitochondrial Antibody Negative Normal Negative [facility] Comment on above: Performed By: #### P SD, SIMFXB, PSE #### [facility] (DEFAULT) [address] [place] [address] ANTI SMOOTH MUSCLE ANTIBODYo 11-26-2023 Smooth Muscle Antibody Negative Normal Negative [facility] Comment on above: Performed By: #### P SD, SIMFXB, PSE #### [facility] (DEFAULT) [address] [place] [address] CBC AND ELECTRONIC DIFFon Basophils (Bld) [#/Vol] 0.05 10*3/uL Normal 0.00-0.15 [facility] Comment on above: Performed By: #### P SD, SIMFXB, PSE #### [facility] (DEFAULT) [address] [place] [address] Basophils/100 WBC (Bld) 0.6 % Normal [facility] Comment on above: Performed By: #### P SD, SIMFXB, PSE #### [facility] (DEFAULT) [address] [place] [address] DIFF STATUS Electronic Differential Normal [facility] Comment on above: Performed By: #### P SD, SIMFXB, PSE #### [facility] (DEFAULT) [address] [place] [address] Eosinophils (Bld) [#/Vol] 0.15 10*3/uL Normal 0.00-0.42 [facility] Comment on above: Performed By: #### P SD, SIMFXB, PSE #### [facility] (DEFAULT) [address] [address] Eosinophils/100 WBC (Bld) 1.9 % Normal [facility] Comment on above: Performed By: #### P SD, SIMFXB, PSE #### [facility] (DEFAULT) [address] [address] Hematocrit (Bld) [Volume fraction] 42.6 % Normal 34.9-44.3 [facility] Comment on above: Performed By: #### P SD, SIMFXB, PSE #### [facility] (DEFAULT) [address] [address] Hemoglobin (Bld) [Mass/Vol] 13.6 g/dL Normal 11.4-15.2 [facility] Comment on above: Performed By: #### P SD, SIMFXB, PSE #### [facility] (DEFAULT) [address] [address] Immature Grans % 0.5 % Normal [facility] Comment on above: Performed By: #### P SD, SIMFXB, PSE #### [facility] (DEFAULT) [address] [address] Immature Grans Absolute 0.04 K/uL Normal <=0.08 [facility] Comment on above: Performed By: #### P SD, SIMFXB, PSE #### [facility] (DEFAULT) [address] [address] Lymphocytes (Bld) [#/Vol] 2.06 10*3/uL Normal 1.16-3.51 [facility] Comment on above: Performed By: #### P SD, SIMFXB, PSE #### [facility] (DEFAULT) [address] [address] Lymphocytes/100 WBC (Bld) 25.8 % Normal [facility] Comment on above: Performed By: #### P SD, SIMFXB, PSE #### [facility] (DEFAULT) [address] [place] [address] MCV (RBC) [Entitic vol] 88.9 fL Normal 79.6-97.7 [facility] Comment on above: Performed By: #### P SD, SIMFXB, PSE #### [facility] (DEFAULT) [address] [address] Mean Cell Hgb 28.4 pg Normal 25.9-33.9 [facility] Comment on above: Performed By: #### P SD, SIMFXB, PSE #### [facility] (DEFAULT) [address] [address] Mean Cell Hgb Conc 31.9 g/dL Normal 31.4-35.9 [facility] Comment on above: Performed By: #### P SD, SIMFXB, PSE #### [facility] (DEFAULT) [address] [place] [address] Monocytes (Bld) [#/Vol] 0.40 10*3/uL Normal 0.22-0.87 [facility] Comment on above: Performed By: #### P SD, SIMFXB, PSE #### [facility] (DEFAULT) [address] [address] Monocytes/100 WBC (Bld) 5.0 % Normal [facility] Comment on above: Performed By: #### P SD, SIMFXB, PSE #### [facility] (DEFAULT) [address] [address] Nucleated RBC 0.0 /100 WBC Normal <=0.2 [facility] Comment on above: Performed By: #### P SD, SIMFXB, PSE #### [facility] (DEFAULT) [address] [place] [address] 15238 Platelet mean volume (Bld) [Entitic vol] 10.2 fL Normal 8.5-12.2 [facility] Comment on above: Performed By: #### P SD, SIMFXB, PSE #### [facility] (DEFAULT) [address] [place] [address] 82299 Platelets (Bld) [#/Vol] 379 10*3/uL Normal 150-393 [facility] Comment on above: Performed By: #### P SD, SIMFXB, PSE #### [facility] (DEFAULT) [address] [place] [address] 24860 RBC (Bld) [#/Vol] 4.79 10*6/uL Normal 3.91-5.04 [facility] Comment on above: Performed By: #### P SD, SIMFXB, PSE #### [facility] (DEFAULT) [address] [place] [address] 07330 RBC Distribution 12.8 % Normal 10.8-14.9 [facility] Comment on above: Performed By: #### P SD, SIMFXB, PSE #### [facility] (DEFAULT) [address] [place] [address] 91757 Segs + Bands Auto 66.2 % Normal [facility] Comment on above: Performed By: #### P SD, SIMFXB, PSE #### [facility] (DEFAULT) [address] [place] [address] 62263 Segs + Bands,Absolute Auto 5.27 K/uL Normal 1.64-7.28 [facility] Comment on above: Performed By: #### P SD, SIMFXB, PSE #### [facility] (DEFAULT) [address] [place] [address] 31385 WBC (Bld) [#/Vol] 7.97 10*3/uL Normal 3.99-11.19 [facility] Comment on above: Performed By: #### P SD, SIMFXB, PSE #### [facility] (DEFAULT) [address] [place] [address] 18675 CERULOPLASMINon 11-26-2023 Ceruloplasmin [Mass/Vol] 31 mg/dL 20 - 60 mg/dL [facility] Ceruloplasmin 31 mg/dL Normal 20-60 [facility] Comment on above: Performed By: #### Q IMM, A1AT, CERP #### [facility] (DEFAULT) [address] [place] [id number] CHEM 7 (LYTES,BUN,CREA,GLUC) on 11-26-2023 Anion gap [Moles/Vol] 17 mmol/L 7 - 17 mmol/L [facility] Chloride [Moles/Vol] 102 mmol/L 98 - 10 8 mmol/L [facility] CO2 [Moles/Vol] 26 mmol/L 21 - 31 mmol/L [facility] Creatinine [Mass/Vol] 0.55 mg/dL 0.50 - 1.20 mg/dL [facility] eGFR, CKD-EPI, Female - PINF [facility] Comment on above: Reported eGFR is bas ed on the CKD-EPI 2020 equation using creatinine, age, and sex. Glucose [Mass/Vol] 123 mg/dL High 70 - 99 mg/dL [facility] Osmolality Calc [Osmolality] 294 [facility] Potassium [Moles/Vol] 3.8 mmol/L 3.5 - 5.0 mmol/L [facility] Sodium [Moles/Vol] 141 mmol/L 135 - 145 mmol/L [facility] Urea nitrogen [Mass/Vol] 7 mg/dL 7 - 25 mg/dL [facility] Urea nitrogen/Creatinine [Mass ratio] 13 mg/mg [facility] Anion gap [Moles/Vol] 17 mmol/L Normal 7-17 [facility] Comment on above: Performed By: #### I RBC, HFP, CHM7 #### [facility] (DEFAULT) [address] [place] [phone] Chloride [Moles/Vol] 102 mmol/L Normal 98-108 [facility] Comment on above: Performed By: #### I RBC, HFP, CHM7 #### [facility] (DEFAULT) [address] [place] [address] 81709 CO2 [Moles/Vol] 26 mmol/L Normal 21-31 [facility] Comment on above: Performed By: #### I RBC, HFP, CHM7 #### [facility] (DEFAULT) [address] [place] [address] 62347 Creatinine [Mass/Vol] 0.55 mg/dL Normal 0.50-1.20 [facility] Comment on above: Performed By: #### I RBC, HFP, CHM7 #### [facility] (DEFAULT) [address] [place] [address] 84357 eGFR, CKD-EPI, Female > Normal >=60 [facility] Comment on above: Result Comment: Repo rted eGFR is based on the CKD-EPI 2020 equation using creatinine, age, and sex. Performed By: #### I RBC, HFP, CHM7 #### [facility] (DEFAULT) [address] [place] [address] 59756 Glucose [Mass/Vol] 123 mg/dL High 70-99 [facility] Comment on above: Performed By: #### I RBC, HFP, CHM7 #### [facility] (DEFAULT) [address] [place] [address] 17062 Osmolality [Osmolality] 294 mosm/kg Normal 278-305 [facility] Comment on above: Performed By: #### I RBC, HFP, CHM7 #### [facility] (DEFAULT) [address] [place] [address] 91683 Potassium [Moles/Vol] 3.8 mmol/L Normal 3.5-5.0 [facility] Comment on above: Performed By: #### I RBC, HFP, CHM7 #### [facility] (DEFAULT) [address] [place] [address] 74386 Sodium [Moles/Vol] 141 mmol/L Normal 135-145 [facility] Comment on above: Performed By: #### I RBC, HFP, CHM7 #### [facility] (DEFAULT) [address] [place] [address] Urea nitrogen [Mass/Vol] 7 mg/dL Normal 7-25 [facility] Comment on above: Performed By: #### I RBC, HFP, CHM7 #### [facility] (DEFAULT) [address] [place] [address] Urea nitrogen/Creatinine [Mass ratio] 13 mg/mg Normal [facility] Comment on above: Performed By: #### I RBC, HFP, CHM7 #### [facility] (DEFAULT) [address] [place] [address] FERRITINon 11-26-2023 Ferritin [Mass/Vol] 26.5 ng/mL 7.3 - 27 0.7 ng/mL [facility] Interpretation and review of laboratory results Normal [facility] Ferritin [Mass/Vol] 26.5 ng/mL Normal 7.3-270.7 [facility] Comment on above: Performed By: #### F ERIB, TSH #### [facility] (DEFAULT) [address] [place] [address] 40036 HEPATIC FUNCTION PANELon Albumin [Mass/Vol] 4.7 g/dL 3.5 - 5.0 g/dL [facility] ALP [Catalytic activity/Vol] 67 U/L 32 - 126 U/L [facility] ALT [Catalytic activity/Vol] 68 U/L High 9 - 48 U/L [facility] AST [Catalytic activity/Vol] 42 U/L High 10 - 39 U/L [facility] Bilirubin [Mass/Vol] 0.5 mg/dL [facility]/dL [facility] Bilirubin.direct [Mass/Vol] 0.1 mg/dL NINF - 0.3 mg/dL [facility] Protein [Mass/Vol] 7.4 g/dL 6.4 - 8.3 g/dL [facility] Albumin [Mass/Vol] 4.7 g/dL Normal 3.5-5.0 [facility] Comment on above: Performed By: #### F ERIB, TSH #### [facility] (DEFAULT) [address] [place] [address] 37335 ALP [Catalytic activity/Vol] 67 U/L Normal 32-126 [facility] Comment on above: Performed By: #### F ERIB, TSH #### [facility] (DEFAULT) [address] [place] [address] 32469 ALT [Catalytic activity/Vol] 68 U/L High 9-48 [facility] Comment on above: Performed By: #### F ERIB, TSH #### [facility] (DEFAULT) [address] [place] [address] 21893 AST [Catalytic activity/Vol] 42 U/L High 10-39 [facility] Comment on above: Performed By: #### F ERIB, TSH #### [facility] (DEFAULT) [address] [place] [address] 31824 Bilirubin [Mass/Vol] 0.5 mg/dL Normal <1.5 [facility] Comment on above: Performed By: #### F ERIB, TSH #### [facility] (DEFAULT) [address] [place] [address] 59637 Bilirubin.indirect [Mass/Vol] 0.1 mg/dL Normal <0.3 [facility] Comment on above: Performed By: #### F ERIB, TSH #### [facility] (DEFAULT) [address] [place] [address] 86810 Protein [Mass/Vol] 7.4 g/dL Normal 6.4-8.3 [facility] Comment on above: Performed By: #### F ERIB, TSH #### [facility] (DEFAULT) [address] [place] [address] 90126 IMMUNOFIXATION SERUMon 11-25 REVIEWED BY: Timmy Morel MD [facility] Comment on above: Performed By: #### P SD, SIMFXB, PSE #### [facility] (DEFAULT) [address] [place] [address] Serum Immunofixation No definitive monoclonal protein is identified. Normal [facility] Comment on above: Performed By: #### P SD, SIMFXB, PSE #### [facility] (DEFAULT) [address] [place] [address] IMMUNOGLOBULINS IGG IGA IGMo n 11-26-2023 IgA [Mass/Vol] 179 mg/dL Normal 66-433 [facility] Comment on above: Performed By: #### Q IMM, A1AT, CERP #### [facility] (DEFAULT) [address] [place] [address] IgG [Mass/Vol] 847 mg/dL Normal 600-1714 [facility] Comment on above: Performed By: #### Q IMM, A1AT, CERP #### [facility] (DEFAULT) [address] [place] [address] 61753 IgM [Mass/Vol] 138 mg/dL Normal 45-281 [facility] Comment on above: Performed By: #### Q IMM, A1AT, CERP #### [facility] (DEFAULT) [address] [place] [address] 23020 IRON/IRON BINDING/TRANSFERRI Non 11-26-2023 Interpretation and review of laboratory results Normal [facility] Iron [Mass/Vol] 79 ug/dL [facility] Iron binding capacity [Mass/Vol] 346 [facility] Iron saturation [Mass fraction] 23 % 20 - 55 % [facility] Transferrin [Mass/Vol] 277 mg/dL 200 - 400 mg/dL [facility] Iron [Mass/Vol] 79 ug/dL Normal 40-174 [facility] Comment on above: Performed By: #### I RBC, HFP, CHM7 #### [facility] (DEFAULT) [address] [place] [address] Iron Saturation 23 % Normal 20-55 [facility] Comment on above: Performed By: #### I RBC, HFP, CHM7 #### [facility] (DEFAULT) [address] [place] [address] 36738 Total Iron Binding Capacity 346 mcg/dL Normal 250-425 [facility] Comment on above: Performed By: #### I RBC, HFP, CHM7 #### [facility] (DEFAULT) [address] [place] [address] 22327 Transferrin [Mass/Vol] 277 mg/dL Normal 200-400 [facility] Comment on above: Performed By: #### I RBC, HFP, CHM7 #### [facility] (DEFAULT) [address] [place] [address] 17088 No Panel Informationon 11-25 Interpretation and review of laboratory results Abnormal [facility] Interpretation and review of laboratory results Normal [facility] PROTEIN ELECTROPHORESISon Albumin [Mass/Vol] 4.6 g/dL Normal 3.5-5.0 [facility] Comment on above: Performed By: #### P SD, SIMFXB, PSE #### [facility] (DEFAULT) [address] [place] [address] 84090 Alpha 1 0.3 g/dL Normal 0.2-0.4 [facility] Comment on above: Performed By: #### P SD, SIMFXB, PSE #### [facility] (DEFAULT) [address] [place] [address] 83247 Alpha 2 0.8 g/dL Normal 0.5-1.0 [facility] Comment on above: Performed By: #### P SD, SIMFXB, PSE #### [facility] (DEFAULT) [address] [place] [address] 55193 Beta 0.9 g/dL Normal 0.5-1.1 [facility] Comment on above: Performed By: #### P SD, SIMFXB, PSE #### [facility] (DEFAULT) [address] [place] [address] 28558 Gamma 0.8 g/dL Normal 0.6-1.5 [facility] Comment on above: Performed By: #### P SD, SIMFXB, PSE #### [facility] (DEFAULT) [address] [place] [address] 99665 Interpretation By: Timmy Morel MD Normal [facility] Comment on above: Performed By: #### P SD, SIMFXB, PSE #### [facility] (DEFAULT) [address] [place] [address] 23450 Spe Interpretation Normal serum protein electrophoresis pattern. Normal [facility] Comment on above: Performed By: #### P SD, SIMFXB, PSE #### [facility] (DEFAULT) [address] [place] [address] 79181 PROTIME-INRon 11-26-2023 INR Coag (Bld) [Relative time] 1.0 {INR} 0.9 - 1.1 [facility] Interpretation and review of laboratory results Normal [facility] PT Coag (PPP) [Time] 13.4 s [facility] INR Coag (PPP) [Relative time] 1.0 {INR} Normal 0.9-1.1 [facility] Comment on above: Performed By: #### P SD, SIMFXB, PSE #### [facility] (DEFAULT) [address] [place] [address] 26333 PT Coag (PPP) [Time] 13.4 s Normal 11.9-14.2 [facility] Comment on above: Performed By: #### P SD, SIMFXB, PSE #### [facility] (DEFAULT) [address] [place] [address] 11713 SPE SERUM TOTAL PROTEINon Protein [Mass/Vol] 7.3 g/dL Normal 6.4-8.3 [facility] Comment on above: Performed By: #### P SD, SIMFXB, PSE #### [facility] (DEFAULT) [address] [place] [address] 24241 T-TRANSGLUTAMINASE IGG/IGA, ABon 11-26-2023 T-TRANSGLUTAMINASE IGA AB <1.2 Normal <4.0 (Negative) [facility] Comment on above: Performed By: #### P SD, SIMFXB, PSE #### [facility] (DEFAULT) [address] [place] [address] Tissue Transglutaminase, IgG 2.4 U/mL Normal <6.0 (Negative) [facility] Comment on above: Result Comment: Test Performed by: [facility] [address] [id number] Crystallizer Operator: Ed Russo M.D. Ph.D.; CLIA# [id number] Performed By: #### P SD, SIMFXB, PSE #### [facility] (DEFAULT) [address] [place] [address] 03334 TSHon 11-26-2023 Interpretation and review of laboratory results Normal [facility] TSH Qn 1.315 m[IU]/L [facility] TSH 1.315 uIU/mL Normal 0.550-4.780 [facility] Comment on above: Performed By: #### F ERIB, TSH #### [facility] (DEFAULT) [address] [place] [address] ABDOMEN/PELVIS WITH AND W ITHOUT CONTRASTon [...] error, please notify the sender immediately at [phone] and permanently delete the original report and destroy any copies or printouts. Normal [facility] CBC AND ELECTRONIC DIFFon Basophils (Bld) [#/Vol] 0.05 10*3/uL Normal 0.00-0.15 [facility] Comment on above: Performed By: #### F ERIB, TSH #### [facility] (DEFAULT) [address] [place] [address] 71957 Basophils/100 WBC (Bld) 0.6 % Normal [facility] Comment on above: Performed By: #### F ERIB, TSH #### [facility] (DEFAULT) [address] [place] [address] 14463 DIFF STATUS Electronic Differential Normal [facility] Comment on above: Performed By: #### F ERIB, TSH #### [facility] (DEFAULT) [address] [place] [address] 18414 Eosinophils (Bld) [#/Vol] 0.19 10*3/uL Normal 0.00-0.42 [facility] Comment on above: Performed By: #### F ERIB, TSH #### [facility] (DEFAULT) [address] [place] [address] 25211 Eosinophils/100 WBC (Bld) 2.3 % Normal [facility] Comment on above: Performed By: #### F ERIB, TSH #### [facility] (DEFAULT) [address] [place] [address] 41801 Hematocrit (Bld) [Volume fraction] 41.9 % Normal 34.9-44.3 [facility] Comment on above: Performed By: #### F ERIB, TSH #### [facility] (DEFAULT) [address] [place] [address] 36200 Hemoglobin (Bld) [Mass/Vol] 13.5 g/dL Normal 11.4-15.2 [facility] Comment on above: Performed By: #### F ERIB, TSH #### [facility] (DEFAULT) [address] [place] [address] 91477 Immature Grans % 0.2 % Normal [facility] Comment on above: Performed By: #### F ERIB, TSH #### [facility] (DEFAULT) [address] [place] [address] 42039 Immature Grans Absolute < Normal <=0.08 [facility] Comment on above: Performed By: #### F ERIB, TSH #### [facility] (DEFAULT) [address] [place] [address] 92451 Lymphocytes (Bld) [#/Vol] 2.07 10*3/uL Normal 1.16-3.51 [facility] Comment on above: Performed By: #### F ERIB, TSH #### [facility] (DEFAULT) [address] [place] [address] 25123 Lymphocytes/100 WBC (Bld) 25.6 % Normal [facility] Comment on above: Performed By: #### F ERIB, TSH #### [facility] (DEFAULT) [address] [place] [address] 06871 MCV (RBC) [Entitic vol] 86.9 fL Normal 79.6-97.7 [facility] Comment on above: Performed By: #### F ERIB, TSH #### [facility] (DEFAULT) [address] [place] [address] 14594 Mean Cell Hgb 28.0 pg Normal 25.9-33.9 [facility] Comment on above: Performed By: #### F ERIB, TSH #### [facility] (DEFAULT) [address] [place] [address] 44162 Mean Cell Hgb Conc 32.2 g/dL Normal 31.4-35.9 [facility] Comment on above: Performed By: #### F ERIB, TSH #### [facility] (DEFAULT) [address] [place] [address] 67086 Monocytes (Bld) [#/Vol] 0.66 10*3/uL Normal 0.22-0.87 [facility] Comment on above: Performed By: #### F ERIB, TSH #### [facility] (DEFAULT) [address] [place] [address] 48246 Monocytes/100 WBC (Bld) 8.1 % Normal [facility] Comment on above: Performed By: #### F ERIB, TSH #### [facility] (DEFAULT) [address] [place] [address] 70353 Nucleated RBC 0.0 /100 WBC Normal <=0.2 [facility] Comment on above: Performed By: #### F ERIB, TSH #### [facility] (DEFAULT) [address] [place] [address] 45785 Platelet mean volume (Bld) [Entitic vol] 9.7 fL Normal 8.5-12.2 [facility] Comment on above: Performed By: #### F ERIB, TSH #### [facility] (DEFAULT) [address] [place] [address] 21201 Platelets (Bld) [#/Vol] 318 10*3/uL Normal 150-393 [facility] Comment on above: Performed By: #### F ERIB, TSH #### [facility] (DEFAULT) [address] [place] [address] 55711 RBC (Bld) [#/Vol] 4.82 10*6/uL Normal 3.91-5.04 [facility] Comment on above: Performed By: #### F ERIB, TSH #### [facility] (DEFAULT) [address] [place] [address] 66345 RBC Distribution 14.2 % Normal 10.8-14.9 [facility] Comment on above: Performed By: #### F ERIB, TSH #### [facility] (DEFAULT) [address] [place] [address] 54441 Segs + Bands Auto 63.2 % Normal [facility] Comment on above: Performed By: #### F ERIB, TSH #### [facility] (DEFAULT) [address] [place] [address] 94762 Segs + Bands,Absolute Auto 5.11 K/uL Normal 1.64-7.28 [facility] Comment on above: Performed By: #### F ERIB, TSH #### [facility] (DEFAULT) [address] [place] [address] 60128 WBC (Bld) [#/Vol] 8.10 10*3/uL Normal 3.99-11.19 [facility] Comment on above: Performed By: #### Dionisio HERMAN, TSH #### [facility] (DEFAULT) [address] [address] CHROMOGRANIN Aon 11-06-2023 Chromogranin A 30 ng/mL Normal <93 [facility] Comment on above: Result Comment: ADDITIONAL INFORMATION The testing method is a homogeneous time-resolved immunofluorescent assay manufactured by [employer] and performed on the [employer] Compact Plus. Values obtained with different assay [...] examination and other findings. Test Performed by: [place] [address] Crystallizer Operator: Ed Russo M.D. Ph.D.; CLIA# [id number] Performed By: #### F VIRGIL, TSH #### [facility] (DEFAULT) [address] [address] COMPREHENSIVE METABOLIC PANE Shamir 11-06-2023 Albumin [Mass/Vol] 4.6 g/dL Normal 3.5-5.0 [facility] Comment on above: Performed By: #### F VIRGIL, TSH #### [facility] (DEFAULT) [address] [address] ALP [Catalytic activity/Vol] 75 U/L Normal 32-126 [facility] Comment on above: Performed By: #### F VIRGIL, TSH #### [facility] (DEFAULT) [address] [place] [address] 14757 ALT [Catalytic activity/Vol] 66 U/L High 9-48 [facility] Comment on above: Performed By: #### F ERIB, TSH #### [facility] (DEFAULT) [address] [place] [address] 64717 Anion gap [Moles/Vol] 13 mmol/L Normal 7-17 [facility] Comment on above: Performed By: #### F ERIB, TSH #### [facility] (DEFAULT) [address] [place] [address] 98502 AST [Catalytic activity/Vol] 40 U/L High 10-39 [facility] Comment on above: Performed By: #### F ERIB, TSH #### [facility] (DEFAULT) [address] [place] [address] 50615 Bilirubin [Mass/Vol] 0.3 mg/dL Normal <1.5 [facility] Comment on above: Performed By: #### F ERIB, TSH #### [facility] (DEFAULT) [address] [place] [address] 27825 Calcium [Mass/Vol] 9.7 mg/dL Normal 8.6-10.5 [facility] Comment on above: Performed By: #### F ERIB, TSH #### [facility] (DEFAULT) [address] [place] [address] 28599 Chloride [Moles/Vol] 104 mmol/L Normal 98-108 [facility] Comment on above: Performed By: #### F ERIB, TSH #### [facility] (DEFAULT) [address] [place] [address] 26108 CO2 [Moles/Vol] 30 mmol/L Normal 21-31 [facility] Comment on above: Performed By: #### F ERIB, TSH #### [facility] (DEFAULT) [address] [place] [address] 38850 Creatinine [Mass/Vol] 0.61 mg/dL Normal 0.50-1.20 [facility] Comment on above: Performed By: #### F ERIB, TSH #### [facility] (DEFAULT) [address] [place] [address] 53531 eGFR, CKD-EPI, Female > Normal >=60 [facility] Comment on above: Result Comment: Repo rted eGFR is based on the CKD-EPI 2020 equation using creatinine, age, and sex. Performed By: #### F ERIB, TSH #### [facility] (DEFAULT) [address] [place] [address] 45613 Glucose [Mass/Vol] 62 mg/dL Low 70-99 [facility] Comment on above: Performed By: #### F ERIB, TSH #### [facility] (DEFAULT) [address] [place] [address] 68987 Osmolality [Osmolality] 293 mosm/kg Normal 278-305 [facility] Comment on above: Performed By: #### F ERIB, TSH #### [facility] (DEFAULT) [address] [place] [address] 23825 Potassium [Moles/Vol] 3.9 mmol/L Normal 3.5-5.0 [facility] Comment on above: Performed By: #### F ERIB, TSH #### [facility] (DEFAULT) [address] [place] [id number] Protein [Mass/Vol] 7.3 g/dL Normal 6.4-8.3 [facility] Comment on above: Performed By: #### F ERIB, TSH #### [facility] (DEFAULT) [address] [place] [address]19 Sodium [Moles/Vol] 143 mmol/L Normal 135-145 [facility] Comment on above: Performed By: #### F ERIB, TSH #### [facility] (DEFAULT) [address] [place] [address] 73686 Urea nitrogen [Mass/Vol] 6 mg/dL Low 7-25 [facility] Comment on above: Performed By: #### F ERIB, TSH #### [facility] (DEFAULT) [address] [place] [address] Urea nitrogen/Creatinine [Mass ratio] 10 mg/mg Normal [facility] Comment on above: Performed By: #### F ERIB, TSH #### [facility] (DEFAULT) [address] [place] [address] LACTATE DEHYDROGENASEon 04 LD Total 161 U/L Normal 100-190 [facility] Comment on above: Performed By: #### F ERIB, TSH #### [facility] (DEFAULT) [address] [place] [address] Shamir 09-25-2023 L Specimen: [id number] Received: 09/27/23 Status: MARIANNA Mosqueda Num: [id number] Spec Type: Surgical Subm Dr: Ron Ruano Tissues: A Placenta - 3rd Trimester (Greater than 28 weeks) (PLACENTA) Procedures: HE/3, Gross/Micro L5 Age/ Patient Sex Location Account Attending Physician Zainab Mcclure 28/F LABELL [id number] Ron Ruano SPEC NUM: [id number] RECD: 09/27/23 STATUS: MARIANNA MOSQUEDA NUM: [id number] AUSTEN: 09/25/[address]: Ron Ruano ENTERED: 09/27/23 [facility] DR: Ron,Lab SPEC TYPE: Surgical DEPT: CARL BAZE ORDERED: HE/3, Gross/Micro L5 ORDERED: HE/3, Gross/Micro [...] Zainab Swift per requisition, Zainab Mcclure in [facility], same Gross Description Received in formalin labeled [...] of the cut surface of the placenta. Software Installation Engineer sections are submitted in 3 cassettes as follows: A1 - cord and central disc Specimen: [id number] Received: 09/27/23 Status: MARIANNA Mosqueda Num: [id number] Spec Type: Surgical Subm Dr: Ron Ruano Tissues: A Placenta - 3rd Trimester (Greater than 28 weeks) (PLACENTA) Procedures: HE/3, Gross/Micro L5 Patient: Zainab Mcclure [id number] (Continued) Specimen: [id number] Received: 09/27/23 (Continued) Gross Description (Continued) Signed (signature on file) Hawk Stevens MD 09/28/232017 Specimen: [id number] Received: 09/27/23 Status: TATIANNAAndrew Mosqueda Num: [id number] Spec Type: Surgical Subm Dr: Ron Ruano Tissues: A Placenta - 3rd Trimester (Greater than 28 weeks) (PLACENTA) Procedures: HE/3, Gross/Micro L5 Patient: Zainab Mcclure [id number] (Continued) Specimen: [id number] Received: 09/27/23 (Continued) Gross Description (Continued) A2 - membranes and marginal disc A3 - Superficial lesion CPT Codes 46793 Specimen: [id number] Received: 09/27/23 Status: MARIANNA Mosqueda Num: [id number] Spec Type: Surgical Subm Dr: Ron Ruano Tissues: A Placenta - 3rd Trimester (Greater than 28 weeks) (PLACENTA) Procedures: HE/3, Gross/Micro L5 Patient: Zainab Mcclure [id number] (Continued) Signed (signature on file) Hawk Stevens MD 09/28/232017 [place] [facility] MRI ABDOMEN/PELVIS WITHOUT C ONTRASTon 03-11-2023 IMPRESSION: 1. Stable postoperative changes from right [...] well visualized on this exam. [facility] Radiology Study observation (narrative) [facility] MRI ABDOMEN/PELVIS WITHOUT C ONTRASTOrdered By: Mandi Montiel on 03-11-2023 [facility] Work Phone: CT Chest W contrast [...] No suspicious osseous lesion. RADIOLOGY Benjamin Santos MB/[facility] - 10/23/2022 EXAM: CT CHEST WITH CONTRAST, [...] I have reviewed and approved this report. [facility] CT Chest W contrast IVOrdere d By: Benjamin Santos [facility] 10-23-20[facility] Jason Radiology Study observation (narrative) [facility] contrast Jason 04-0 [...] or adenopathy in the neck. [facility] Radiology Study observation (narrative) [facility] CT Neck W contrast IVOrdered By: Miguel Espinal on 10-22-2022 [facility] Work Phone: Cardiac echo study Procedure Ordered By: Guerrero Carvalho on 10-22-2022 Ao peak raj 1.26 m/s [facility] Work Phone: Ao VTI 19.98 cm [facility] Work Phone: Ascending aorta 2.62 cm [facility] Work Phone: AV LVOT peak gradient 3 mmHg [facility]: AV mean gradient 3 mmHg [facility]: [facility] peak gradient 6 mmHG [facility] Work Phone: AV valve area 2.24 cm2 [facility] Work Phone: AV Velocity Ratio 0.70 [facility] Work Phone: FRANK (continuity Vmax) 1.82 cm2 [facility] Work Phone: FRANK (continuity VTI) 2.24 cm2 [facility] Work Phone: FRANK index (continuity Vmax) 1.06 m/s [facility] Work Phone: FRANK index (continuity VTI) 1.30 cm2/m2 [facility] Work Phone: Avg e' pk raj 0.15 m/s [facility] Work Phone: Avg E/e' ratio 4.89 [facility] Work Phone: Body surface area Derived from formula 1.72 m2 [facility] Work Phone: BP EF 62 % [facility] Work Phone: DI (Vmax) 0.70 [facility] Work Phone: DI (VTI) 0.86 m/2 [facility] Work Phone: E wave decelartion time 217.58 msec [facility] Work Phone: e' lateral pk raj 0.1597 m/s [facility]: e' lateral pk raj 0.16 m/s [facility]: e' septal pk raj 0.1401 m/s [facility] Work Phone: e' septal pk raj 0.14 m/s [facility] Work Phone: E/A ratio 0.74 [facility] Work Phone: E/e' lateral ratio 4.57 [facility] Work Phone: E/e' septal ratio 5.21 [facility] Work Phone: EF SP 2CH 64 [facility] Work Phone: EF SP 4CH 59 [facility] Work Phone: FS 33 % 28 - 44 % [facility] Work Phone: IVC ostium 1.46 cm [facility] Work Phone: IVS 0.61 cm [facility] Work Phone: LA AREA 2CH 13.72 cm2 [facility] Work Phone: LA area 4CH 9.33 cm2 [facility] Work Phone: LA ESV BP (MOD) 29 mL [facility] Work Phone: LA ESV BP (MOD) index 17 mL/m2 [facility] Work Phone: LA ESV SP 2CH (MOD) 37 mL [facility] Work Phone: LA ESV SP 4CH (MOD) 19 mL [facility] Work Phone: Long Strain -21.7 % [facility] Work Phone: LV EDV BP 71 mL [facility] Work Phone: LV EDV SP 2CH 76 mL [facility] Work Phone: LV EDV SP 4CH 61 mL [facility] Work Phone: LV ESV BP 27 mL [facility] Work Phone: LV ESV SP 2CH 27 mL [facility] Work Phone: LV ESV SP 4CH 25 mL [facility] Work Phone: LV mass 68.53 g [facility] Work Phone: LV Mass Index 39.8 g/m2 [facility] Work Phone: LV RWT 0.30 [facility] Work Phone: LV stroke volume BP (ml) 44 mL [facility] Work Phone: LV stroke volume index BP 25.58 mL/m2 [facility] Work Phone: LVIDD 4.10 cm [facility] Work Phone: LVIDS 2.73 cm [facility] Work Phone: LVOT area 2.60 cm2 [facility] Work Phone: LVOT diameter 1.82 cm [facility] Work Phone: LVOT peak raj 0.88 m/s [facility] Work Phone: LVOT peak VTI 17.19 cm [facility] Work Phone: LVOT stroke volume 45 cm3 [facility] Work Phone: LVOT stroke volume index 25.99 ml/m2 [facility] Work Phone: MV pk A raj 0.98 m/s [facility] Work Phone: MV pk E raj 0.73 m/s [facility] Work Phone: MV stenosis pressure 1/2 time 63.10 ms [facility] Work Phone: MV valve area p 1/2 method 3.49 cm2 [facility] Work Phone: [facility] AV VTI RATIO PRE STRESS 0.86 [facility] Work Phone: [facility] ECHO LV BIPLANE SYSTOLIC VOLUME INDEX 15.70 mL/m2 [facility] Work Phone: [facility] ECHO LV BP DIASTOLIC VOLUME INDEX 41.28 mL/m2 [facility] Work Phone: PV peak gradient 4 mmHg [facility] Work Phone: PV PK RAJ 0.97 m/s [facility] Work Phone: PW 0.61 cm [facility] Work Phone: RA vol index 4CH (MOD) 12.79 mL/m2 [facility] Work Phone: Right atrium volume 4 chamber method of disks 22 mL [facility] Work Phone: RV Area diastolic 21.85 cm2 [facility] Work Phone: RV Area systolic 11.51 cm2 [facility] Work Phone: RV basal diam 3.02 cm [facility] Work Phone: RV Fractional area change 47.3 % [facility] Work Phone: RV long diam 7.35 cm [facility] Work Phone: RV Long Strain -28.0 % [facility] Work Phone: RV mid diam 2.68 cm [facility] Work Phone: RV S' 12.55 cm/s [facility] Work Phone: RVOT peak gradient 1 mmHg [facility] Work Phone: RVOT peak raj 0.59 m/s [facility] Work Phone: Sinus 2.70 cm [facility] Work Phone: STJ 2.41 cm [facility] Work Phone: Stroke Volume 45 cm/mL [facility] Work Phone: Stroke volume index 26 [facility] Work Phone: TAPSE 2.03 cm [facility] Work Phone: [facility] Work Phone: Cardiac echo study Procedure [...] ventricular wall motion is normal. [facility] Radiology Study observation (narrative) [facility] B-TYPE NATRIURETIC PEPTIDE ( BRAIN)on 10-07-2022 Interpretation and review of laboratory results Normal [facility] Natriuretic peptide B (Bld) [Mass/Vol] 4 pg/mL 0 - 100 pg/mL [facility] HIGH SENSITIVITY TROPONIN I - SINGLE ORDERon 10-07-2022 Interpretation and review of laboratory results Normal [facility] Troponin I.cardiac High sensitivity method [Mass/Vol] ng/L NINF - 34 ng/L [facility] MONOon 10-02-2022 Monocytes (Bld) [#/Vol] Negative Normal NEGATIVE [facility] Comment on above: Performed By: #### L IVER, LDH, BMP #### [facility] [address] [place], [place] [address] Dr. Esthela Stevens CBC AUTO DIFFon 09-30-2022 BASO # 0.1 103/ul Normal 0.0-0.1 [facility] Comment on above: Performed By: #### L IVER, LDH, BMP #### [facility] [address] [place], [place] [address] Dr. Esthela Stevens Basophils/100 WBC (Bld) 0.8 % Normal 0.2-2.0 [facility] Comment on above: Performed By: #### L IVER, LDH, BMP #### [facility] [address] [place] [address] Dr. Esthela Stevens EO # 0.1 103/ul Normal 0.0-0.7 [facility] Comment on above: Performed By: #### L IVER, LDH, BMP #### [facility] [address] [place] [address] Dr. Esthela Stevens Eosinophils/100 WBC (Bld) 1.7 % Normal 0.9-7.0 [facility] Comment on above: Performed By: #### L IVER, LDH, BMP #### [facility] [address] [place] [address] Dr. Esthela Stevens Erythrocyte distribution width (RBC) [Ratio] 13.1 % Normal 11.0-15.0 [facility] Comment on above: Performed By: #### L IVER, LDH, BMP #### [facility] [address] [place] [address] Dr. Esthela Stevens Hematocrit (Bld) [Volume fraction] 38.4 % Normal 36.0-48.0 [facility] Comment on above: Performed By: #### L IVER, LDH, BMP #### [facility] [address] [place] [address] Dr. Esthela Stevens Hemoglobin (Bld) [Mass/Vol] 12.4 g/dL Normal 12.0-16.0 [facility] Comment on above: Performed By: #### L IVER, LDH, BMP #### [facility] [address] [place] [address] Dr. Esthela Stevens IG # 0.02 10e3/ul Normal 0.00-0.03 [facility] Comment on above: Performed By: #### L IVER, LDH, BMP #### [facility] [address] [place] [address] Dr. Esthela Stevens IG % 0.3 % Normal 0.0-0.5 [facility] Comment on above: Performed By: #### L IVER, LDH, BMP #### [facility] [address] [place] [address] [address] Esthela Stevens LYMPH # 2.2 103/ul Normal 1.2-3.8 [facility] Comment on above: Performed By: #### L IVER, LDH, BMP #### [facility] [address] [place] [address] [address] Esthela Stevens Lymphocytes/100 WBC (Bld) 32.8 % Normal 20.5-60.0 [facility] Comment on above: Performed By: #### L IVER, LDH, BMP #### [facility] [address] [place] [address] Dr. Esthela Stevens MANUAL DIFF REQ NO Normal [facility] Comment on above: Performed By: #### L IVER, LDH, BMP #### [facility] [address] [place] [address] Dr. Esthela Stevens MCH (RBC) [Entitic mass] 27.1 pg Normal 26.7-34.0 [facility] Comment on above: Performed By: #### L IVER, LDH, BMP #### [facility] [address] [place] [address] Dr. Esthela Stevens MCHC (RBC) [Mass/Vol] 32.3 g/dL Normal 29.9-35.2 [facility] Comment on above: Performed By: #### L IVER, LDH, BMP #### [facility] [address] [place] [address] Dr. Esthela Stevens MCV (RBC) [Entitic vol] 83.8 fL Normal 81.0-99.0 [facility] Comment on above: Performed By: #### L IVER, LDH, BMP #### [facility] [address] [place] [address] Dr. Esthela Stevens MONO # 0.5 103/ul Normal 0.3-0.8 [facility] Comment on above: Performed By: #### L IVER, LDH, BMP #### [facility] [address] [place] [address] Dr. Estehla Stevens Monocytes/100 WBC (Bld) 8.0 % Normal 1.7-12.0 [facility] Comment on above: Performed By: #### L IVER, LDH, BMP #### [facility] [address] [place] [address] Dr. Esthela Stevens NEUT # 3.7 103/ul Normal 1.4-6.5 [facility] Comment on above: Performed By: #### L IVER, LDH, BMP #### [facility] [address] [place] [address] Dr. Esthela Stevens Neutrophils/100 WBC (Bld) 56.4 % Normal 43.0-75.0 [facility] Comment on above: Performed By: #### L IVER, LDH, BMP #### [facility] [address] [place] [address] Dr. Esthela Stevens Platelet mean volume (Bld) [Entitic vol] 9.3 fL Critically low 9.5-13.5 [facility] Comment on above: Performed By: #### L IVER, LDH, BMP #### [facility] [address] [place] [address] Dr. Esthela Stevens PLT 334 103/ul Normal 150-450 [facility] Comment on above: Performed By: #### L IVER, LDH, BMP #### [facility] [address] [place] [address] Dr. Esthela Stevens RBC 4.58 106/ul Normal 4.20-5.40 [facility] Comment on above: Performed By: #### L IVER, LDH, BMP #### [facility] [address] [place] [address] Dr. Esthela Stevens WBC 6.6 103/ul Normal 4.0-11.0 [facility] Comment on above: Performed By: #### L IVER, LDH, BMP #### [facility] [address] [place] [address] Dr. Esthela Stevens LDHon 09-30-2022 LDH 122 U/L Normal 81-234 [facility] Comment on above: Performed By: #### L IVER, LDH, BMP #### [facility] [address] [place] [address] Dr. Esthela Stevens LIVER PROFILEon 09-30-2022 Albumin [Mass/Vol] 4.1 g/dL Normal 3.4-5.0 [facility] Comment on above: Performed By: #### L IVER, LDH, BMP #### [facility] [address] [place] [address] [address] Esthela Stevens Albumin/Globulin [Mass ratio] 1.2 {ratio} Normal [facility] Comment on above: Performed By: #### L IVER, LDH, BMP #### [facility] [address] [place] [address] [address] Esthela Stevens ALP [Catalytic activity/Vol] 75 U/L Normal 46-116 [facility] Comment on above: Performed By: #### L IVER, LDH, BMP #### [facility] [address] [place] [address] Dr. Esthela Stevens ALT [Catalytic activity/Vol] 41 U/L Normal 14-59 [facility] Comment on above: Performed By: #### L IVER, LDH, BMP #### [facility] [address] [place] [address] [address] Esthela Stevens AST [Catalytic activity/Vol] 30 U/L Normal 15-37 [facility] Comment on above: Performed By: #### L IVER, LDH, BMP #### [facility] [address] [place] [address] Dr. Esthela Stevens BILI, CONJUGATED 0.1 mg/dL Normal 0.0-0.2 [facility] Comment on above: Performed By: #### L IVER, LDH, BMP #### [facility] [address] [place] [address] [address] Esthela Stevens Bilirubin [Mass/Vol] 0.5 mg/dL Normal 0.2-1.0 [facility] Comment on above: Performed By: #### L IVER, LDH, BMP #### [facility] [address] [place] [address] [address] Esthela Stevens Globulin (S) [Mass/Vol] 3.3 g/dL Normal [facility] Comment on above: Performed By: #### L IVER, LDH, BMP #### [facility] [address] [place] [address] Dr. Esthela Stevens Protein [Mass/Vol] 7.4 g/dL Normal 6.4-8.2 [facility] Comment on above: Performed By: #### L IVER, LDH, BMP #### [facility] [address] [place] [address] Dr. Esthela Stevens PROF CHEM 8 (BAS METB)on Anion gap [Moles/Vol] 9.2 mmol/L Normal [facility] Comment on above: Performed By: #### L IVER, LDH, BMP #### [facility] [address] [place] [address] Dr. Esthela Stevens Calcium [Mass/Vol] 9.0 mg/dL Normal 8.5-10.1 [facility] Comment on above: Performed By: #### L IVER, LDH, BMP #### [facility] [address] [place] [address] Dr. Esthela Stevens Chloride [Moles/Vol] 102 mmol/L Normal 98-107 [facility] Comment on above: Performed By: #### L IVER, LDH, BMP #### [facility] [address] [place] [address] Dr. Esthela Stevens CO2 [Moles/Vol] 27.8 mmol/L Normal 21.0-32.0 [facility] Comment on above: Performed By: #### L IVER, LDH, BMP #### [facility] [address] [place] [address] Dr. Esthela Stevens Creatinine [Mass/Vol] 0.63 mg/dL Normal 0.55-1.02 [facility] Comment on above: Performed By: #### L IVER, LDH, BMP #### [facility] [address] [place] [address] Dr. Esthela Stevens EGFR-AF PAKISTANI >60 Normal >=60 [facility] Comment on above: Performed By: #### L IVER, LDH, BMP #### [facility] [address] [place] [address] Dr. Esthela Stevens EGFR-NON AF PAKISTANI >60 Normal >=60 [facility] Comment on above: Performed By: #### L IVER, LDH, BMP #### [facility] [address] [place] [address] [address] Esthela Stevens Glucose [Mass/Vol] 106 mg/dL Normal 74-106 [facility] Comment on above: Performed By: #### L IVER, LDH, BMP #### [facility] [address] [place] [address] [address] Esthela Stevens Potassium [Moles/Vol] 4.0 mmol/L Normal 3.5-5.1 [facility] Comment on above: Performed By: #### L IVER, LDH, BMP #### [facility] [address] [place] [address] [address] Esthela Stevens Sodium [Moles/Vol] 135 mmol/L Critically low 136-145 [facility] Comment on above: Performed By: #### L IVER, LDH, BMP #### [facility] [address] [place] [address] [address] Esthela Stevens Urea nitrogen [Mass/Vol] 9.0 mg/dL Normal 7.0-18.0 [facility] Comment on above: Performed By: #### L IVER, LDH, BMP #### [facility] [address] [place] [address] [address] Esthela Stevens Urea nitrogen/Creatinine [Mass ratio] 14.3 mg/mg Normal [facility] Comment on above: Performed By: #### L IVER, LDH, BMP #### [facility] [address] [place] [address] Dr. Esthela Stevens MG MAMM DIAGNOSTIC 3D EFREN CA Don 09-23-2022 MG MAMM DIAGNOSTIC 3D EFREN CAD Patient: ZAINAB SWIFT Exam Date: 09/23/2022 : 1995 Gender:F Ordering : [facility] Admission #: [id number] Family : Order #: [id number] CLICK HERE TO VIEW EXAM RADIOLOGY REPORT [...] cervical cancer at age 42. LOCATION: [facility] BREAST COMPOSITION: Extremely dense, which lowers [...] M.D. on 09/23/2022 at 11:31 Normal [facility] US BREAST EFREN LIMITEDon 03-0 US BREAST EFREN LIMITED Patient: ZAINAB SWIFT Exam Date: 09/23/2022 : 1995 Gender:F Ordering : [facility] Admission #: [id number] Family : Order #: [id number] CLICK HERE TO VIEW EXAM RADIOLOGY REPORT [...] cervical cancer at age 42. LOCATION: [facility] BREAST COMPOSITION: Extremely dense, which lowers [...] M.D. on 09/23/2022 at 11:31 Normal [facility] Covid-19 PCR (CVDTB)on 08-20 SARS-CoV-2 (COVID-19) RNA JORGE LUIS+probe Ql (Unsp spec) Not detected Normal NOT DETECTED [facility] Comment on above: Result Comment: When [...] for this test is supported by the Water Leak Repairer of Health and Human Service's declaration that [...] used). Performed By: #### P REG #### [facility] [address] [place] [address] Dr. Esthela Stevens INFLUENZA A AND B AGon 09-15 [facility] SEE BELOW Normal [facility] Comment on above: Result Comment: Nega tive for Flu A protein angiten. Infection due to Flu A cannot be ruled out. Flu A angiten in the sample may be below the detection limit of the test. Performed By: #### L IVER, LDH, BMP #### [facility] [address] [place] [address] Dr. Esthela Stevens INFLUBNEG SEE BELOW Normal [facility] Comment on above: Result Comment: Nega tive for Flu B protein antigen. Infection due to Flu B cannot be ruled out. Flu B antigen in the sample may be below the detection limit of the test. Performed By: #### L IVER, LDH, BMP #### [facility] [address] [place] [address] Dr. Esthela Stevens INFLUENZA A AG Negative Normal NEGATIVE SEE COMMENT [facility] Comment on above: Performed By: #### L IVER, LDH, BMP #### [facility] [address] [place] [address] Dr. Esthela Stevens INFLUENZA B AG Negative Normal NEGATIVE SEE COMMENT [facility] Comment on above: Performed By: #### L IVER, LDH, BMP #### [facility] [address] [place] [address] Dr. Esthela Stevens HUNTER by IFAon 09-04-2022 Antinuclear Antibodies, IFA Positive Abnormal [facility] Comment on above: Result Comment: Nega tive <1:80 Borderline 1:80 Positive >1:80 Performed By: #### P REG #### [facility] [address] [place] [address] Dr. Esthela Stevens Centriole Pattern Normal [facility] Comment on above: Performed By: #### P REG #### [facility] [address] [place] [address] Dr. Esthela Stevens Centromere Pattern Normal [facility] Comment on above: Performed By: #### P REG #### [facility] [address] [place] [address] Dr. Esthela Stevens Homogeneous Pattern 1:160 Critically high [facility] Comment on above: Result Comment: ICAP nomenclature: AC-1 Performed By: #### P REG #### [facility] [address], [place] [address] Dr. Esthela Stevens Midbody Pattern Normal The [facility] Comment on above: Performed By: #### P REG #### [facility] [address], [place] [address] Dr. Esthela Stevens Note: Comment Normal [facility] Comment on above: Result Comment: For [...] titers Nucleosomes, Histones Drug-induced SLE Speckled Sm, RIVET HEATER GAS, SCL-70, SLE,MCTD,PSS (diffuse form), SS-A/SS-B Sjogrens Nucleolar SCL-70, PM-1/SCL High titers Scleroderma, PM/DM Centromere Centromere PSS (limited form) w/Crest syndrome variable Nuclear Dot [id number] Primary Biliary Cirrhosis Nuclear GP210, Primary Biliary Cirrhosis Membrane italia A,B,C Performed By: #### P REG #### [facility] [address] [place] [address] Dr. Esthela Stevens Nuclear Dot Pattern Normal [facility] Comment on above: Performed By: #### P REG #### [facility] [address] [place] [address] Dr. Esthela Stevens Nuclear Membrane Pattern Normal [facility] Comment on above: Performed By: #### P REG #### [facility] [address] [place] [address] Dr. Esthela Stevens Nucleolar Pattern Normal [facility] Comment on above: Performed By: #### P REG #### [facility] [address] [place] [address] Dr. Esthela Stevens PCNA Pattern Normal [facility] Comment on above: Performed By: #### P REG #### [facility] [address] [place] [address] Dr. Esthela Stevens Speckled Pattern Normal [facility] Comment on above: Performed By: #### P REG #### [facility] [address] [place] [address] Dr. Esthela Stevens Spindle Apparatus Pattern Normal [facility] Comment on above: Performed By: #### P REG #### [facility] [address] [place] [address] Dr. Esthela Stevens ANTISTREPTOLYSIN O AB (ASO)o n 09-01-2022 Antistreptolysin O Ab 58.8 IU/mL Normal 0.0-200.0 [facility] Comment on above: Performed By: #### L IVER, LDH, BMP #### [facility] [address] [place] [address] Dr. Esthela Stevens INSULINon 09-01-2022 Insulin 12.2 uIU/mL Normal 2.6-24.9 [facility] Comment on above: Performed By: #### I NSULIN #### [facility] [address] [place] [address] Dr. Esthela Stevens RHEUMATOID FACTORon 09-01-19 RA Latex Turbid. <10.0 Normal <14.0 [facility] Comment on above: Performed By: #### L IVER, LDH, BMP #### [facility] [address] [place] [address] Dr. Esthela Stevens CBC AUTO DIFFon 08-31-2022 BASO # 0.0 103/ul Normal 0.0-0.1 [facility] Comment on above: Performed By: #### P REG #### [facility] [address] [place] [address] Dr. Esthela Stevens Basophils/100 WBC (Bld) 0.6 % Normal 0.2-2.0 [facility] Comment on above: Performed By: #### P REG #### [facility] [address] [place] [address] Dr. Esthela Stevens EO # 0.1 103/ul Normal 0.0-0.7 [facility] Comment on above: Performed By: #### P REG #### [facility] [address] [place] [address] Dr. Esthela Stevens Eosinophils/100 WBC (Bld) 1.5 % Normal 0.9-7.0 [facility] Comment on above: Performed By: #### P REG #### [facility] [address] [place] [address] Dr. Esthela Stevens Erythrocyte distribution width (RBC) [Ratio] 12.7 % Normal 11.0-15.0 [facility] Comment on above: Performed By: #### P REG #### [facility] [address] [place] [address] [address] Esthela Stevens Hematocrit (Bld) [Volume fraction] 38.4 % Normal 36.0-48.0 [facility] Comment on above: Performed By: #### P REG #### [facility] [address] [place] [address] Dr. Esthela Stevens Hemoglobin (Bld) [Mass/Vol] 12.7 g/dL Normal 12.0-16.0 [facility] Comment on above: Performed By: #### P REG #### [facility] [address] [place] [address] Dr. Esthela Stevens IG # 0.02 10e3/ul Normal 0.00-0.03 [facility] Comment on above: Performed By: #### P REG #### [facility] [address] [place] [address] Dr. Esthela Stevens IG % 0.3 % Normal 0.0-0.5 [facility] Comment on above: Performed By: #### P REG #### [facility] [address] [place] [address] Dr. Esthela Stevens LYMPH # 2.0 103/ul Normal 1.2-3.8 [facility] Comment on above: Performed By: #### P REG #### [facility] [address] [place] [address] Dr. Esthela Stevens Lymphocytes/100 WBC (Bld) 31.2 % Normal 20.5-60.0 [facility] Comment on above: Performed By: #### P REG #### [facility] [address] [place] [address] Dr. Esthela Stevens MANUAL DIFF REQ NO Normal [facility] Comment on above: Performed By: #### P REG #### [facility] [address] [place] [address] [address] Esthela Stevens MCH (RBC) [Entitic mass] 27.1 pg Normal 26.7-34.0 [facility] Comment on above: Performed By: #### P REG #### [facility] [address] [place] [address] Dr. Esthela Stevens MCHC (RBC) [Mass/Vol] 33.1 g/dL Normal 29.9-35.2 [facility] Comment on above: Performed By: #### P REG #### [facility] [address] [place] [address] Dr. Esthela Stevens MCV (RBC) [Entitic vol] 82.1 fL Normal 81.0-99.0 [facility] Comment on above: Performed By: #### P REG #### [facility] [address] [place] [address] Dr. Esthela Stevens MONO # 0.4 103/ul Normal 0.3-0.8 [facility] Comment on above: Performed By: #### P REG #### [facility] [address] [place] [address] Dr. Esthela Stevens Monocytes/100 WBC (Bld) 6.4 % Normal 1.7-12.0 [facility] Comment on above: Performed By: #### P REG #### [facility] [address] [place] [address] Dr. Esthela Stevens NEUT # 3.9 103/ul Normal 1.4-6.5 [facility] Comment on above: Performed By: #### P REG #### [facility] [address] [place] [address] Dr. Esthela Stevens Neutrophils/100 WBC (Bld) 60.0 % Normal 43.0-75.0 [facility] Comment on above: Performed By: #### P REG #### [facility] [address] [place] [address] Dr. Esthela Stevens Platelet mean volume (Bld) [Entitic vol] 9.2 fL Critically low 9.5-13.5 [facility] Comment on above: Performed By: #### P REG #### [facility] [address] [place] [address] [address] Esthela Stevens PLT 390 103/ul Normal 150-450 [facility] Comment on above: Performed By: #### P REG #### [facility] [address] [place] [address] Dr. Esthela Stevens RBC 4.68 106/ul Normal 4.20-5.40 [facility] Comment on above: Performed By: #### P REG #### [facility] [address] [place] [address] Dr. Esthela Stevens WBC 6.5 103/ul Normal 4.0-11.0 [facility] Comment on above: Performed By: #### P REG #### [facility] [address] [place] [address] Dr. Esthela Stevens CRPon 08-31-2022 CRP [Mass/Vol] mg/L Normal <=1.[address] [facility] Comment on above: Performed By: #### L IVER, LDH, BMP #### [facility] [address] [place] [address] Dr. Esthela Stevens FREE THYROXINE INDEX T7on FTI 2.94 Normal 1.30-4.50 [facility] Comment on above: Performed By: #### L IVER, LDH, BMP #### [facility] [address] [place] [address] Dr. Esthela Stevens T3U 33.0 % Normal 30.0-39.0 [facility] Comment on above: Performed By: #### L IVER, LDH, BMP #### [facility] [address] [place] [address] Dr. Esthela Stevens T4 [Mass/Vol] 8.90 ug/dL Normal 4.80-13.90 [facility] Comment on above: Performed By: #### L IVER, LDH, BMP #### [facility] [address] [place] [address] Dr. Esthela Stevens GLYCOHEMOGLOBIN A1Con 2022 ADA RECOMMENDATION SEE BELOW Normal [facility] Comment on above: Result Comment: ADA RECOMMENDED LIMIT 4.0 - 6.0 ADA THERAPEUTIC TARGET < 7.0 ACTION SUGGESTED > 7.0 Performed By: #### L IVER, LDH, BMP #### [facility] [address] [place] [address] Dr. Esthela Stevens Glucose [Mass/Vol] 111 mg/dL Normal [facility] Comment on above: Performed By: #### L IVER, LDH, BMP #### [facility] [address] [address] [address] Esthela Stevens HbA1c (Bld) [Mass fraction] 5.5 % Normal 4.5-6.2 [facility] Comment on above: Performed By: #### L IVER, LDH, BMP #### [facility] [address] [place] [address] Dr. Esthela Stevens IRONon 08-31-2022 Iron [Mass/Vol] 34.0 ug/dL Critically low 50.0-170.0 [facility] Comment on above: Performed By: #### L IVER, LDH, BMP #### [facility] [address] [place] [address] Dr. Esthela Stevens LIPID PROFILEon 08-31-2022 CHOL-HDL RATIO NORM SEE BELOW Normal [facility] Comment on above: Result Comment: 3.3 - 4.4 LOW RISK 4.4 - 7.1 AVERAGE RISK 7.1 - 11.0 MODERATE RISK >11.0 HIGH RISK Performed By: #### L IVER, LDH, BMP #### [facility] [address] [place] [address] Dr. Esthela Stevens Cholesterol [Mass/Vol] 168 mg/dL Normal <=200 [facility] Comment on above: Performed By: #### L IVER, LDH, BMP #### [facility] [address] [place] [address] Dr. Esthela Stevens Cholesterol in HDL [Mass/Vol] 51 mg/dL Normal 40-60 [facility] Comment on above: Performed By: #### L IVER, LDH, BMP #### [facility] [address] [place] [address] [address] Esthela Stevens Cholesterol in LDL [Mass/Vol] 91.8 mg/dL Normal [facility] Comment on above: Performed By: #### L IVER, LDH, BMP #### [facility] [address] [address] [address] Esthela Stevens Cholesterol.total/Ch olesterol in HDL [Mass ratio] 3.3 {ratio} Normal [facility] Comment on above: Performed By: #### L IVER, LDH, BMP #### [facility] [address] [address] [address] Esthela Stevens HDL NORMAL > or = 60 mg/dl - LOW CARDIOVASCULAR RISK <40 mg/dl - HIGH CARDIOVASCULAR RISK Normal [facility] Comment on above: Performed By: #### L IVER, LDH, BMP #### [facility] [address] [place] [address] Dr. Esthela Stevens LDL CALC NORMAL SEE BELOW Normal [facility] Comment on above: Result Comment: <100 mg/dl OPTIMAL 100 - 129 mg/dl NEAR OR ABOVE OPTIMAL 130 - 159 mg/dl BORDERLINE HIGH 160 - 189 mg/dl HIGH >190 mg/dl VERY HIGH Performed By: #### L IVER, LDH, BMP #### [facility] [address] [address] [address] Esthela Stevens Triglyceride [Mass/Vol] 126 mg/dL Normal <=150 [facility] Comment on above: Performed By: #### L IVER, LDH, BMP #### [facility] [address] [place] [address] Dr. Esthela Stevens VLDL CALC 25.2 mg/dL Normal [facility] Comment on above: Performed By: #### L IVER, LDH, BMP #### [facility] [address] [place] [address] Dr. Esthela Stevens PROF 14(COMP METB)on 023 Albumin [Mass/Vol] 4.2 g/dL Normal 3.4-5.0 [facility] Comment on above: Performed By: #### L IVER, LDH, BMP #### [facility] [address] [address] [address] Esthela Stevens Albumin/Globulin [Mass ratio] 1.1 {ratio} Normal [facility] Comment on above: Performed By: #### L IVER, LDH, BMP #### [facility] [address] [place] [address] Dr. Esthela Stevens ALP [Catalytic activity/Vol] 74 U/L Normal 46-116 [facility] Comment on above: Performed By: #### L IVER, LDH, BMP #### [facility] [address] [place] [address] Dr. Esthela Stveens ALT [Catalytic activity/Vol] 57 U/L Normal 14-59 [facility] Comment on above: Performed By: #### L IVER, LDH, BMP #### [facility] [address] [place] [address] Dr. Esthela Stevens Anion gap [Moles/Vol] 15.0 mmol/L Normal [facility] Comment on above: Performed By: #### L IVER, LDH, BMP #### [facility] [address] [place] [address] Dr. Esthela Stevens AST [Catalytic activity/Vol] 25 U/L Normal 15-37 [facility] Comment on above: Performed By: #### L IVER, LDH, BMP #### [facility] [address] [place] [address] Dr. Esthela Stevens Bilirubin [Mass/Vol] 0.4 mg/dL Normal 0.2-1.0 [facility] Comment on above: Performed By: #### L IVER, LDH, BMP #### [facility] [address] [place] [address] Dr. Esthela Stevens Calcium [Mass/Vol] 9.4 mg/dL Normal 8.5-10.1 [facility] Comment on above: Performed By: #### L IVER, LDH, BMP #### [facility] [address] [place] [address] Dr. Esthela Stevens Chloride [Moles/Vol] 102 mmol/L Normal 98-107 [facility] Comment on above: Performed By: #### L IVER, LDH, BMP #### [facility] [address] [place] [address] Dr. sEthela Stevens CO2 [Moles/Vol] 27.0 mmol/L Normal 21.0-32.0 [facility] Comment on above: Performed By: #### L IVER, LDH, BMP #### [facility] [address] [address] [address] Esthela Stevens Creatinine [Mass/Vol] 0.61 mg/dL Normal 0.55-1.02 [facility] Comment on above: Performed By: #### L IVER, LDH, BMP #### [facility] [address] [address] [address] Esthela Stevens EGFR-AF PAKISTANI >60 Normal >=60 [facility] Comment on above: Performed By: #### L IVER, LDH, BMP #### [facility] [address] [address] [address] Esthela Stevens EGFR-NON AF PAKISTANI >60 Normal >=60 [facility] Comment on above: Performed By: #### L IVER, LDH, BMP #### [facility] [address] [address] [address] Esthela Stevens Globulin (S) [Mass/Vol] 3.7 g/dL Normal [facility] Comment on above: Performed By: #### L IVER, LDH, BMP #### [facility] [address] [address] [address] Esthela Stevens Glucose [Mass/Vol] 88 mg/dL Normal 74-106 [facility] Comment on above: Performed By: #### L IVER, LDH, BMP #### [facility] [address] [address] [address] Esthela Stevens Potassium [Moles/Vol] 4.0 mmol/L Normal 3.5-5.1 [facility] Comment on above: Performed By: #### L IVER, LDH, BMP #### [facility] [address] [address] [address] Esthela Stevens Protein [Mass/Vol] 7.9 g/dL Normal 6.4-8.2 [facility] Comment on above: Performed By: #### L IVER, LDH, BMP #### [facility] [address] [address] [address] Esthela Stevens Sodium [Moles/Vol] 140 mmol/L Normal 136-145 [facility] Comment on above: Performed By: #### L IVER, LDH, BMP #### [facility] [address] [place] [address] Dr. Esthela Stevens Urea nitrogen [Mass/Vol] 4.0 mg/dL Critically low 7.0-18.0 [facility] Comment on above: Performed By: #### L IVER, LDH, BMP #### [facility] [address] [place] [address] Dr. Esthela Stevens Urea nitrogen/Creatinine [Mass ratio] 6.6 mg/mg Normal [facility] Comment on above: Performed By: #### L IVER, LDH, BMP #### [facility] [address] [place] [address] Dr. Esthela Stevens TSHon 08-31-2022 TSH 1.348 uIU/mL Normal 0.358-3.740 [facility] Comment on above: Performed By: #### L IVER, LDH, BMP #### [facility] [address] [place] [address] Dr. Esthela Stevens URIC ACID SERUMon 08-31-2022 Urate [Mass/Vol] 4.4 mg/dL Normal 2.6-6.0 [facility] Comment on above: Performed By: #### L IVER, LDH, BMP #### [facility] [address] [place] [address] Dr. Esthela Stevens VITAMIN D 25 OHon 08-31-2022 VIT D 25-OH 18.0 ng/mL Normal [facility] Comment on above: Performed By: #### L IVER, LDH, BMP #### [facility] [address] [place] [address] Dr. Esthela Stevens VIT D RANGES SEE BELOW Normal [facility] Comment on above: Result Comment: <20 ng/mL Vit D deficient 20 - <30 ng/mL Vit D insufficient 30 - 100 ng/mL Vit D sufficient >100 ng/mL Potential Toxicity Performed By: #### L IVER, LDH, BMP #### [facility] [address] [place] [address] Dr. Esthela Stevens LIVER PROFILEon 08-24-2022 Albumin [Mass/Vol] 3.9 g/dL Normal 3.4-5.0 [facility] Comment on above: Performed By: #### L IVER, LDH, BMP #### [facility] [address] [place] [address] Dr. Esthela Stevens Albumin/Globulin [Mass ratio] 1.0 {ratio} Normal [facility] Comment on above: Performed By: #### L IVER, LDH, BMP #### [facility] [address] [place] [address] Dr. Esthela Stevens ALP [Catalytic activity/Vol] 70 U/L Normal 46-116 [facility] Comment on above: Performed By: #### L IVER, LDH, BMP #### [facility] [address] [place] [address] Dr. Esthela Stevens ALT [Catalytic activity/Vol] 44 U/L Normal 14-59 [facility] Comment on above: Performed By: #### L IVER, LDH, BMP #### [facility] [address] [place] [address] Dr. Esthela Stevens AST [Catalytic activity/Vol] 22 U/L Normal 15-37 [facility] Comment on above: Performed By: #### L IVER, LDH, BMP #### [facility] [address] [place] [address] Dr. Esthela Stevens BILI, CONJUGATED 0.1 mg/dL Normal 0.0-0.2 [facility] Comment on above: Performed By: #### L IVER, LDH, BMP #### [facility] [address] [place] [address] Dr. Esthela Stevens Bilirubin [Mass/Vol] 0.3 mg/dL Normal 0.2-1.0 [facility] Comment on above: Performed By: #### L IVER, LDH, BMP #### [facility] [address] [place] [address] Dr. Esthela Stevens Globulin (S) [Mass/Vol] 3.9 g/dL Normal [facility] Comment on above: Performed By: #### L IVER, LDH, BMP #### [facility] [address], [place] [address] Dr. Esthela Stevens Protein [Mass/Vol] 7.8 g/dL Normal 6.4-8.2 [facility] Comment on above: Performed By: #### L IVER, LDH, BMP #### [facility] [address], [place] [address] Dr. Esthela Stevens CREAT/GFRon 08-19-2022 Creatinine [Mass/Vol] 0.85 mg/dL 0.50 - 1.20 mg/dL [facility] GFR/1.73 sq M.predicted CKD-EPI (S/P/Bld) [Vol rate/Area] - PINF [facility] Comment on above: Reported eGFR is bas ed on the CKD-EPI 2020 equation using creatinine, age, and sex. Interpretation and review of laboratory results Normal [facility] Test performed at address of the patient encounter. [facility] PT Skull base to mid-thighon 08-19-2022 [...] the patient was positioned on the Siemens Broken Buygraph mCT TOF< PET/CT-64, Tera imaging unit. A [...] of somatostatin receptor avid malignancy. [facility] Radiology Study observation (narrative) [facility] PT Skull base to mid-thighOr dered By: Hawa Pichardo on 08-19-2022 [facility] Work Phone: CBC AUTO DIFFon 08-12-2022 BASO # 0.1 103/ul Normal 0.0-0.1 [facility] Comment on above: Performed By: #### L IVER, LDH, BMP #### [facility] [address] [place] [address] Dr. Esthela Stevens Basophils/100 WBC (Bld) 1.0 % Normal 0.2-2.0 [facility] Comment on above: Performed By: #### L IVER, LDH, BMP #### [facility] [address] [place] [address] Dr. Esthela Stevens EO # 0.1 103/ul Normal 0.0-0.7 [facility] Comment on above: Performed By: #### L IVER, LDH, BMP #### [facility] [address] [place] [address] Dr. Esthela Stevens Eosinophils/100 WBC (Bld) 1.6 % Normal 0.9-7.0 [facility] Comment on above: Performed By: #### L IVER, LDH, BMP #### [facility] [address] [place] [address] Dr. Esthela Stevens Erythrocyte distribution width (RBC) [Ratio] 12.5 % Normal 11.0-15.0 [facility] Comment on above: Performed By: #### L IVER, LDH, BMP #### [facility] [address] [place] [address] Dr. Esthela Stevens Hematocrit (Bld) [Volume fraction] 40.1 % Normal 36.0-48.0 [facility] Comment on above: Performed By: #### L IVER, LDH, BMP #### [facility] [address] [place] [address] Dr. Esthela Stevens Hemoglobin (Bld) [Mass/Vol] 12.3 g/dL Normal 12.0-16.0 [facility] Comment on above: Performed By: #### L IVER, LDH, BMP #### [facility] [address] [place] [address] Dr. Esthela Stevens IG # 0.01 10e3/ul Normal 0.00-0.03 [facility] Comment on above: Performed By: #### L IVER, LDH, BMP #### [facility] [address] [place] [address] Dr. Esthela Stevens IG % 0.2 % Normal 0.0-0.5 [facility] [place] Comment on above: Performed By: #### L IVER, LDH, BMP #### [facility] [address] [place] [address] Dr. Esthela Stevens LYMPH # 1.8 103/ul Normal 1.2-3.8 [facility] [place] Comment on above: Performed By: #### L IVER, LDH, BMP #### [facility] [address] [place] [address] Dr. Esthela Stevens Lymphocytes/100 WBC (Bld) 28.0 % Normal 20.5-60.0 [facility] [place] Comment on above: Performed By: #### L IVER, LDH, BMP #### [facility] [address] [place] [address] Dr. Esthela Stevens MANUAL DIFF REQ NO Normal [facility] Comment on above: Performed By: #### L IVER, LDH, BMP #### [facility] [address] [place] [address] Dr. Esthela Stevens MCH (RBC) [Entitic mass] 26.8 pg Normal 26.7-34.0 [facility] [place] Comment on above: Performed By: #### L IVER, LDH, BMP #### [facility] [address] [place] [address] Dr. Esthela Stevens MCHC (RBC) [Mass/Vol] 30.7 g/dL Normal 29.9-35.2 [facility] [place] Comment on above: Performed By: #### L IVER, LDH, BMP #### [facility] [address] [place] [address] Dr. Esthela Stevens MCV (RBC) [Entitic vol] 87.4 fL Normal 81.0-99.0 [facility] [place] Comment on above: Performed By: #### L IVER, LDH, BMP #### [facility] [address] [place] [address] Dr. Esthela Stevens MONO # 0.6 103/ul Normal 0.3-0.8 [facility] [place] Comment on above: Performed By: #### L IVER, LDH, BMP #### [facility] [address] [place] [address] Dr. Esthela Stevens Monocytes/100 WBC (Bld) 9.4 % Normal 1.7-12.0 [facility] Comment on above: Performed By: #### L IVER, LDH, BMP #### [facility] [address] [place] [address] Dr. Esthela Stevens NEUT # 3.8 103/ul Normal 1.4-6.5 [facility] Comment on above: Performed By: #### L IVER, LDH, BMP #### [facility] [address] [place] [address] Dr. Esthela Stevens Neutrophils/100 WBC (Bld) 59.8 % Normal 43.0-75.0 [facility] Comment on above: Performed By: #### L IVER, LDH, BMP #### [facility] [address] [place] [address] Dr. Esthela Stevens Platelet mean volume (Bld) [Entitic vol] 9.6 fL Normal 9.5-13.5 [facility] [place] Comment on above: Performed By: #### L IVER, LDH, BMP #### [facility] [address] [place] [address] Dr. Esthela Stevens PLT 341 103/ul Normal 150-450 [facility] Comment on above: Performed By: #### L IVER, LDH, BMP #### [facility] [address] [place] [address] Dr. Esthela Stevens RBC 4.59 106/ul Normal 4.20-5.40 [facility] Comment on above: Performed By: #### L IVER, LDH, BMP #### [facility] [address] [place] [address] Dr. Esthela Stevens WBC 6.3 103/ul Normal 4.0-11.0 [facility] Comment on above: Performed By: #### L IVER, LDH, BMP #### [facility] [address] [place] [address] ABD/PELV W CONon [...] TIMMY SHAY Date: 2022-08-12 17:04 Normal [facility] CULTURE URINEon 08-12-2022 CULTURE URINE Culture Observations: MODERATE GROWTH OF MIXED GENITAL SUNITA. NO POTENTIAL PATHOGENS SEEN. Normal [facility] Comment on above: Performed By: #### L IVER, LDH, BMP #### [facility] [address] [place] [address] Dr. Esthela Stevens ER URINE PROFILEon 3 Bilirubin Ql (U) Negative Normal NEGATIVE [facility] Comment on above: Performed By: #### P REG #### [facility] [address] [place] [address] Dr. Esthela Stevens Clarity (U) CLEAR Normal CLEAR [facility] Comment on above: Performed By: #### P REG #### [facility] [address] [place] [address] Dr. Esthela Stevens Color (U) LT. YELLOW Normal YELLOW [facility] [place] Comment on above: Performed By: #### P REG #### [facility] [address] [place] [address] Dr. Esthela Stevens ERUAHBenji A micrscopic examination will be performed if indicated. Normal [facility] Comment on above: Performed By: #### P REG #### [facility] [address] [place] [address] Dr. Esthela Stevens Glucose Ql (U) Negative Normal NEGATIVE The [facility] Comment on above: Performed By: #### P REG #### [facility] [address] [place] [address] Dr. Esthela Stevens Hemoglobin Ql (U) Negative Normal NEGATIVE [facility] Comment on above: Performed By: #### P REG #### [facility] [address] [place] [address] Dr. Esthela Stevens Ketones Ql (U) Negative Normal NEGATIVE [facility] Comment on above: Performed By: #### P REG #### [facility] [address] [place] [address] Dr. Esthela Stevens LEUKOCYTES SMALL Abnormal NEGATIVE [facility] [place] Comment on above: Performed By: #### P REG #### [facility] [address] [place] [address] Dr. sEthela Stevens Nitrite Ql (U) Negative Normal NEGATIVE [facility] Comment on above: Performed By: #### P REG #### [facility] [address] [place] [address] Dr. Esthela Stevens pH (U) 7.0 [pH] Normal 5-9 [facility] Comment on above: Performed By: #### P REG #### [facility] [address] [place] [address] Dr. Esthela Stevens SPEC GRAVITY 1.020 Normal 1.005-<=1.025 [facility] Comment on above: Performed By: #### P REG #### [facility] [address] [place] [address] Dr. Esthela Stevens UA PROTEIN Negative Normal NEGATIVE/ TRACE [facility] Comment on above: Performed By: #### P REG #### [facility] [address] [place] [address] Dr. Esthela Stevens UR MICRO IND INDICATED Normal [facility] [place] Comment on above: Performed By: #### P REG #### [facility] [address] [place] [address] Dr. Esthela Stevens Urobilinogen Qn (U) 0.2 {Emeka'U}/dL Normal 0.2 - 1. 0 [facility] [place] Comment on above: Performed By: #### P REG #### [facility] [address] [place] [address] Dr. Esthela Stevens LIPASEon 08-12-2022 Lipase [Catalytic activity/Vol] 75.0 U/L Normal 73.0-393.0 [facility] [place] Comment on above: Performed By: #### P REG #### [facility] [address] [place] [address] Dr. Esthela Stevens URon 08-12-2022 , QUAL Negative Normal NEGATIVE [facility] Comment on above: Performed By: #### P REG #### [facility] [address] [place] [address] Dr. Esthela Stevens PROF 14(COMP METB)on 023 Albumin [Mass/Vol] 4.0 g/dL Normal 3.4-5.0 [facility] Comment on above: Performed By: #### P REG #### [facility] [address] [place] [address] Dr. Esthela Stevens Albumin/Globulin [Mass ratio] 1.1 {ratio} Normal [facility] [place] Comment on above: Performed By: #### P REG #### [facility] [address] [place] [address] Dr. Esthela Stevens ALP [Catalytic activity/Vol] 73 U/L Normal 46-116 [facility] [place] Comment on above: Performed By: #### P REG #### [facility] [address] [place] [address] Dr. Esthela Stevens ALT [Catalytic activity/Vol] 82 U/L Critically high 14-59 [facility] [place] Comment on above: Performed By: #### P REG #### [facility] [address] [place] [address] Dr. Esthela Stevens Anion gap [Moles/Vol] 12.0 mmol/L Normal [facility] [place] Comment on above: Performed By: #### P REG #### [facility] [address] [place] [address] Dr. Esthela Stevens AST [Catalytic activity/Vol] 33 U/L Normal 15-37 [facility] [place] Comment on above: Performed By: #### P REG #### [facility] [address] [place] [address] Dr. Esthela Stevens Bilirubin [Mass/Vol] 0.2 mg/dL Normal 0.2-1.0 [facility] [place] Comment on above: Performed By: #### P REG #### [facility] [address] [place] [address] Dr. Esthela Stevens Calcium [Mass/Vol] 9.4 mg/dL Normal 8.5-10.1 [facility] Comment on above: Performed By: #### P REG #### [facility] [address] [place] [address] Dr. Esthela Stevens Chloride [Moles/Vol] 102 mmol/L Normal 98-107 [facility] [place] Comment on above: Performed By: #### P REG #### [facility] [address] [place] [address] Dr. Esthela Stevens CO2 [Moles/Vol] 27.8 mmol/L Normal 21.0-32.0 [facility] Comment on above: Performed By: #### P REG #### [facility] [address] [address] [address] Esthela Stevens Creatinine [Mass/Vol] 0.69 mg/dL Normal 0.55-1.02 [facility] [place] Comment on above: Performed By: #### P REG #### [facility] [address] [address] [address] Esthela Stevens EGFR-AF PAKISTANI >60 Normal >=60 [facility] Comment on above: Performed By: #### P REG #### [facility] [address] [address] [address] Esthela Stevens EGFR-NON AF PAKISTANI >60 Normal >=60 [facility] [place] Comment on above: Performed By: #### P REG #### [facility] [address] [place] [address] Dr. Esthela Stevens Globulin (S) [Mass/Vol] 3.5 g/dL Normal [facility] [place] Comment on above: Performed By: #### P REG #### [facility] [address] [place] [address] Dr. Esthela Stevens Glucose [Mass/Vol] 109 mg/dL Critically high 74-106 [facility] Comment on above: Performed By: #### P REG #### [facility] [address] [place] [address] Dr. Esthela Stevens Potassium [Moles/Vol] 3.8 mmol/L Normal 3.5-5.1 [facility] Comment on above: Performed By: #### P REG #### [facility] [address] [place] [address] Dr. Esthela Stevens Protein [Mass/Vol] 7.5 g/dL Normal 6.4-8.2 [facility] Comment on above: Performed By: #### P REG #### [facility] [address] [place] [address] Dr. Esthela Stevens Sodium [Moles/Vol] 138 mmol/L Normal 136-145 [facility] Comment on above: Performed By: #### P REG #### [facility] [address] [address] [address] Esthela Stevens Urea nitrogen [Mass/Vol] 6.0 mg/dL Critically low 7.0-18.0 [facility] Comment on above: Performed By: #### P REG #### [facility] [address] [place] [address] Dr. Esthela Stevens Urea nitrogen/Creatinine [Mass ratio] 8.7 mg/mg Normal [facility] Comment on above: Performed By: #### P REG #### [facility] [address] [place] [address] Dr. Esthela Stevens URINE MICROSCOPIC ONLYon BACTERIA SMALL Abnormal NONE SEEN [facility] Comment on above: Performed By: #### P REG #### [facility] [address] [place] [address] Dr. Esthela Stevens Bacteria identified Cx Nom (U) INDICATED Normal [facility] Comment on above: Performed By: #### P REG #### [facility] [address] [place] [address] Dr. Esthela Stevens CAST NONE SEEN Normal NONE SEEN [facility] [place] Comment on above: Performed By: #### P REG #### [facility] [address] [place] [address] Dr. Esthela Stevens Crystals LM Nom (Urine sed) NONE SEEN Normal NONE SEEN [facility] Comment on above: Performed By: #### P REG #### [facility] [address] [place] [address] Dr. Esthela Stevens Epithelial cells LM Ql (Urine sed) MODERATE Abnormal NONE SEEN /RARE [facility] Comment on above: Performed By: #### P REG #### [facility] [address] [place] [address] Dr. Esthela Stevens MUCOUS NONE SEEN Normal NONE SEEN [facility] Comment on above: Performed By: #### P REG #### [facility] [address] [place] [address] Dr. Esthela Stevens RBC NONE SEEN Abnormal 0-2 [facility] Comment on above: Performed By: #### P REG #### [facility] [address] [address] [address] Esthela Stevens WBC 2-5 Abnormal NONE SEEN [facility] Comment on above: Performed By: #### P REG #### [facility] [address] [address] [address] Esthela Stevens PAP ACOG PANEL 2: 21 to 31on 08-11-2022 . . Normal [facility] [place] Comment on above: Performed By: #### [id number] #### [facility] [address] [place] [address] Dr. Esthela Stevens Age Gdln ACOG Testing - Normal [facility] [place] Comment on above: Performed By: #### [id number] #### [facility] [address] [place] [address] Dr. Esthela Stevens DIAGNOSIS: Comment Abnormal [facility] [place] Comment on above: Result Comment: EPIT HELIAL CELL ABNORMALITY. ATYPICAL SQUAMOUS CELLS OF UNDETERMINED SIGNIFICANCE (ASC-US). Performed By: #### [id number] #### [facility] [address] [place] [address] Dr. Esthela Stevens Electronically signed by: Comment Normal [facility] [place] Comment on above: Result Comment: Zoe Moncada MD, Pathologist Performed By: #### [id number] #### [facility] [address] [place] [address] Dr. Esthela Stevens HPV Aptima Negative Normal Negative [facility] [place] Comment on above: Result Comment: This nucleic acid amplification test detects fourteen high-risk HPV types (16,18,31,33,35,39,45,51,52,56,58,59,66,68) without differentiation. Performed By: #### [id number] #### [facility] [address] [place] [address] Dr. Esthela Stevens Methodology: Comment Normal [facility] [place] Comment on above: Result Comment: This liquid based ThinPrep(R) pap test was screened with the use of an image guided system. Performed By: #### [id number] #### [facility] [address] [place] [address] Dr. Esthela Stevens Note: Comment [facility] Comment on above: Result Comment: The Pap smear is a screening test designed to aid in the detection of premalignant and malignant conditions of the uterine cervix. It is not a diagnostic procedure and should not be used as the sole means of detecting cervical cancer. Both false-positive and false-negative reports do occur. . Performed By: #### [id number] #### [facility] [address] [place] [address] Dr. Esthela Stevens Pathologist Provided ICD10 Comment [facility] Comment on above: Result Comment: [id number] Performed By: #### [id number] #### [facility] [address] [place] [address] Dr. Esthela Stevens Performed by: Comment Normal [facility] Comment on above: Result Comment: Nevin Ardon Safety And Health Manager (ASCP) Performed By: #### [id number] #### [facility] [address] [place] [address] Dr. Esthela Stevens Reflex Criteria: Comment Normal [facility] Comment on above: Result Comment: See below for HPV testing results. . Performed By: #### [id number] #### [facility] [address] [place] [address] Dr. Esthela Stevens Specimen adequacy: Comment Normal [facility] Comment on above: Result Comment: Sati sfactory for evaluation. Endocervical and/or squamous metaplastic cells (endocervical component) are present. Performed By: #### [id number] #### [facility] [address] [place] [address] Dr. Esthela Stevens GI PANEL (PCR)on 06-03-2022 Adenovirus F 40/41 Not detected Normal NOT DETECTED [facility] Comment on above: Performed By: #### P REG #### [facility] [address] [place] [address] Dr. Esthela Stevens Astrovirus Not detected Normal NOT DETECTED [facility] Comment on above: Performed By: #### P REG #### [facility] [address] [place] [address] Dr. Esthela Stevens C. Diff toxin A/B Detected Critically abnormal NOT DETECTED [facility] Comment on above: Performed By: #### P REG #### [facility] [address] [place] [address] Dr. Esthela Stevens Campylobacter Not detected Normal NOT DETECTED [facility] Comment on above: Performed By: #### P REG #### [facility] [address] [place] [address] Dr. Esthela Stevens Cryptosporidium Not detected Normal NOT DETECTED [facility] Comment on above: Performed By: #### P REG #### [facility] [address] [place] [address] Dr. Esthela Stevens Cyclos. Cayetanensis Not detected Normal NOT DETECTED [facility] Comment on above: Performed By: #### P REG #### [facility] [address] [place] [address] Dr. Esthela Stevens E. Coli O157 Not Applicable Normal Not Applicable [facility] Comment on above: Performed By: #### P REG #### [facility] [address] [place] [address] Dr. Esthela Stevens E. histolytica Not detected Normal NOT DETECTED [facility] Comment on above: Performed By: #### P REG #### [facility] [address] [place] [address] Dr. Esthela Stevens EAEC Not detected Normal NOT DETECTED [facility] Comment on above: Performed By: #### P REG #### [facility] [address] [place] [address] Dr. Esthela Stevens EIEC Not detected Normal NOT DETECTED [facility] Comment on above: Performed By: #### P REG #### [facility] [address] [place] [address] Dr. Esthela Stevens EPEC Not detected Normal NOT DETECTED [facility] Comment on above: Performed By: #### P REG #### [facility] [address] [place] [address] Dr. Esthela Stevens ETEC Not detected Normal NOT DETECTED [facility] Comment on above: Performed By: #### P REG #### [facility] [address] [address] [address] Esthela Barcenas Lamblidevon Not detected Normal NOT DETECTED [facility] Comment on above: Performed By: #### P REG #### [facility] [address] [address] [address] Esthela KELLY CONTROLS PASSED Normal [facility] Comment on above: Performed By: #### P REG #### [facility] [address] [address] [address] Esthela MERCADO [facility] HEADER GI PANEL BACTERIA Normal [facility] Comment on above: Performed By: #### P REG #### [facility] [address] [address] [address] Esthela LARA ECOLI GI PANEL DIARRHEAGENIC E.COLI / SHIGELLA Normal [facility] [place] Comment on above: Performed By: #### P REG #### [facility] [address] [address] [address] Esthela LARA INFO SEE BELOW Normal [facility] Comment on above: Result Comment: EAEC - Enteroaggregative E. Coli EPEC- Enteropathogenic E. Coli ETEC- Enterotoxigenic E. Coli lt/st STEC- Shigella-like toxin-producing E. Coli stx1/stx2 EIEC- Shigella/Enteroinvasive E. Coli Performed By: #### P REG #### [facility] [address] [place] [address] Dr. Esthela LARA PARASITES GI PANEL PARASITES Normal [facility] Comment on above: Performed By: #### P REG #### [facility] [address] [address] [address] Esthela LARA VIRUS GI PANEL VIRUSES Normal [facility] Comment on above: Performed By: #### P REG #### [facility] [address] [address] [address] Esthela Stevens Norovirus GI/GII Not detected Normal NOT DETECTED [facility] Comment on above: Performed By: #### P REG #### [facility] [address] [address] [address] Yilan Stevens P. Shigelloides Not detected Normal NOT DETECTED [facility] Comment on above: Performed By: #### P REG #### [facility] [address] [place] [address] Dr. Esthela Stevens Rotavirus A Not detected Normal NOT DETECTED [facility] Comment on above: Performed By: #### P REG #### [facility] [address] [place] [address] Dr. Esthela Stevens Salmonella Not detected Normal NOT DETECTED [facility] Comment on above: Performed By: #### P REG #### [facility] [address] [place] [address] Dr. Esthela Stevens Sapovirus Not detected Normal NOT DETECTED [facility] Comment on above: Performed By: #### P REG #### [facility] [address] [place] [address] Dr. Esthela Stevens STEC Not detected Normal NOT DETECTED [facility] Comment on above: Performed By: #### P REG #### [facility] [address] [place] [address] Dr. Esthela Stevens Vibrio Not detected Normal NOT DETECTED [facility] Comment on above: Performed By: #### P REG #### [facility] [address] [place] [address] Dr. Esthela Stevens Vibrio Cholera Not detected Normal NOT DETECTED [facility] Comment on above: Performed By: #### P REG #### [facility] [address] [place] [address] Dr. Esthela Stevens Y. Enterocolitica Not detected Normal NOT DETECTED [facility] Comment on above: Performed By: #### P REG #### [facility] [address] [place] [address] Dr. Esthela Stevens CBC AUTO DIFFon 06-02-2022 BASO # 0.1 103/ul Normal 0.0-0.1 [facility] [place] Comment on above: Performed By: #### L IVER, LDH, BMP #### [facility] [address] [place] [address] Dr. Esthela Stevens Basophils/100 WBC (Bld) 0.6 % Normal 0.2-2.0 [facility] [place] Comment on above: Performed By: #### L IVER, LDH, BMP #### [facility] [address] [place] [address] Dr. Esthela Stevens EO # 0.5 103/ul Normal 0.0-0.7 [facility] [place] Comment on above: Performed By: #### L IVER, LDH, BMP #### [facility] [address] [place] [address] Dr. Esthela Stevens Eosinophils/100 WBC (Bld) 4.3 % Normal 0.9-7.0 [facility] [place] Comment on above: Performed By: #### L IVER, LDH, BMP #### [facility] [address] [place] [address] Dr. Esthela Stevens Erythrocyte distribution width (RBC) [Ratio] 13.0 % Normal 11.0-15.0 [facility] Comment on above: Performed By: #### L IVER, LDH, BMP #### [facility] [address] [place] [address] Dr. Esthela Stevens Hematocrit (Bld) [Volume fraction] 33.6 % Critically low 36.0-48.0 [facility] Comment on above: Performed By: #### L IVER, LDH, BMP #### [facility] [address] [place] [address] Dr. Esthela Stevens Hemoglobin (Bld) [Mass/Vol] 10.9 g/dL Critically low 12.0-16.0 [facility] Comment on above: Performed By: #### L IVER, LDH, BMP #### [facility] [address] [place] [address] Dr. Esthela Stevens IG # 0.05 10e3/ul Critically high 0.00-0.03 [facility] Comment on above: Performed By: #### L IVER, LDH, BMP #### [facility] [address] [place] [address] Dr. Esthela Stevens IG % 0.5 % Normal 0.0-0.5 [facility] Comment on above: Performed By: #### L IVER, LDH, BMP #### [facility] [address] [address] [address] Esthela Stevens LYMPH # 2.4 103/ul Normal 1.2-3.8 [facility] Comment on above: Performed By: #### L IVER, LDH, BMP #### [facility] [address] [address] [address] Esthela Stevens Lymphocytes/100 WBC (Bld) 22.4 % Normal 20.5-60.0 [facility] Comment on above: Performed By: #### L IVER, LDH, BMP #### [facility] [address] [place] [address] Dr. Esthela Stevens MANUAL DIFF REQ NO Normal [facility] Comment on above: Performed By: #### L IVER, LDH, BMP #### [facility] [address] [place] [address] Dr. Esthela Stevens MCH (RBC) [Entitic mass] 26.9 pg Normal 26.7-34.0 [facility] Comment on above: Performed By: #### L IVER, LDH, BMP #### [facility] [address] [place] [address] Dr. Esthela Stevens MCHC (RBC) [Mass/Vol] 32.4 g/dL Normal 29.9-35.2 [facility] Comment on above: Performed By: #### L IVER, LDH, BMP #### [facility] [address] [place] [address] Dr. Esthela Stevens MCV (RBC) [Entitic vol] 83.0 fL Normal 81.0-99.0 [facility] Comment on above: Performed By: #### L IVER, LDH, BMP #### [facility] [address] [place] [address] Dr. Esthela Stevens MONO # 0.8 103/ul Normal 0.3-0.8 [facility] Comment on above: Performed By: #### L IVER, LDH, BMP #### [facility] [address] [place] [address] Dr. Esthela Stevens Monocytes/100 WBC (Bld) 7.1 % Normal 1.7-12.0 [facility] Comment on above: Performed By: #### L IVER, LDH, BMP #### [facility] [address] [place] [address] Dr. Esthela Stevens NEUT # 7.0 103/ul Critically high 1.4-6.5 [facility] Comment on above: Performed By: #### L IVER, LDH, BMP #### [facility] [address] [place] [address] Dr. Esthela Stevens Neutrophils/100 WBC (Bld) 65.1 % Normal 43.0-75.0 [facility] Comment on above: Performed By: #### L IVER, LDH, BMP #### [facility] [address] [place] [address] Dr. Esthela Stevens Platelet mean volume (Bld) [Entitic vol] 8.9 fL Critically low 9.5-13.5 [facility] Comment on above: Performed By: #### L IVER, LDH, BMP #### [facility] [address] [place] [address] Dr. Esthela Stevens PLT 519 103/ul Critically high 150-450 [facility] Comment on above: Performed By: #### L IVER, LDH, BMP #### [facility] [address] [place] [address] Dr. Esthela Stevens RBC 4.05 106/ul Critically low 4.20-5.40 [facility] Comment on above: Performed By: #### L IVER, LDH, BMP #### [facility] [address] [place] [address] Dr. Esthela Stevens WBC 10.8 103/ul Normal 4.0-11.0 [facility] Comment on above: Performed By: #### L IVER, LDH, BMP #### [facility] [address] [place] [address] Dr. Esthela Stevens PROF 14(COMP METB)on 06-02- 022 Albumin [Mass/Vol] 3.7 g/dL Normal 3.4-5.0 [facility] Comment on above: Performed By: #### L IVER, LDH, BMP #### [facility] [address] [address] [address] Esthela Stevens Albumin/Globulin [Mass ratio] 1.0 {ratio} Normal [facility] Comment on above: Performed By: #### L IVER, LDH, BMP #### [facility] [address] [address] [address] Esthela Stevens ALP [Catalytic activity/Vol] 75 U/L Normal 46-116 [facility] Comment on above: Performed By: #### L IVER, LDH, BMP #### [facility] [address] [address] [address] Esthela Stevens ALT [Catalytic activity/Vol] 95 U/L Critically high 14-59 [facility] Comment on above: Performed By: #### L IVER, LDH, BMP #### [facility] [address] [address] [address] Esthela Stevens Anion gap [Moles/Vol] 13.4 mmol/L Normal [facility] Comment on above: Performed By: #### L IVER, LDH, BMP #### [facility] [address] [address] [address] Esthela Stevens AST [Catalytic activity/Vol] 31 U/L Normal 15-37 [facility] Comment on above: Performed By: #### L IVER, LDH, BMP #### [facility] [address] [address] [address] Esthela Stevens Bilirubin [Mass/Vol] 0.1 mg/dL Critically low 0.2-1.0 [facility] Comment on above: Performed By: #### L IVER, LDH, BMP #### [facility] [address] [address] [address] Esthela Stevens Calcium [Mass/Vol] 9.3 mg/dL Normal 8.5-10.1 [facility] Comment on above: Performed By: #### L IVER, LDH, BMP #### [facility] [address] [address] [address] Esthela Stevens Chloride [Moles/Vol] 102 mmol/L Normal 98-107 [facility] Comment on above: Performed By: #### L IVER, LDH, BMP #### [facility] [address] [address] [address] Esthela Stevens CO2 [Moles/Vol] 26.4 mmol/L Normal 21.0-32.0 [facility] Comment on above: Performed By: #### L IVER, LDH, BMP #### [facility] [address] [place] [address] Dr. Esthela Stevens Creatinine [Mass/Vol] 0.67 mg/dL Normal 0.55-1.02 [facility] Comment on above: Performed By: #### L IVER, LDH, BMP #### [facility] [address] [place] [address] Dr. Esthela Stevens EGFR-AF PAKISTANI >60 Normal >=60 [facility] Comment on above: Performed By: #### L IVER, LDH, BMP #### [facility] [address] [place] [address] Dr. Esthela Stevens EGFR-NON AF PAKISTANI >60 Normal >=60 [facility] Comment on above: Performed By: #### L IVER, LDH, BMP #### [facility] [address] [place] [address] Dr. Esthela Stevens Globulin (S) [Mass/Vol] 3.7 g/dL Normal [facility] Comment on above: Performed By: #### L IVER, LDH, BMP #### [facility] [address] [place] [address] Dr. Esthela Stevens Glucose [Mass/Vol] 101 mg/dL Normal 74-106 [facility] Comment on above: Performed By: #### L IVER, LDH, BMP #### [facility] [address] [place] [address] Dr. Esthela Stevens Potassium [Moles/Vol] 3.8 mmol/L Normal 3.5-5.1 [facility] Comment on above: Performed By: #### L IVER, LDH, BMP #### [facility] [address] [place] [address] Dr. Esthela Stevens Protein [Mass/Vol] 7.4 g/dL Normal 6.4-8.2 [facility] Comment on above: Performed By: #### L IVTOREY LDH, BMP #### [facility] [address] [address] [address] Esthela Stevens Sodium [Moles/Vol] 138 mmol/L Normal 136-145 [facility] Comment on above: Performed By: #### L IVTOREY LDH, BMP #### [facility] [address] [address] [address] Esthela Stevens Urea nitrogen [Mass/Vol] 12.0 mg/dL Normal 7.0-18.0 [facility] Comment on above: Performed By: #### L JJ LDH, BMP #### [facility] [address] [address] [address] Esthela Stevens Urea nitrogen/Creatinine [Mass ratio] 17.9 mg/mg Normal [facility] Comment on above: Performed By: #### Scott GARDNER LDH, BMP #### [facility] [address] [address] [address] Esthela Stevens CALCIUMon 05-29-2022 Calcium [Mass/Vol] 9.0 mg/dL 8.6 - 10. 5 mg/dL [facility] CBC,PLATELETSon 05-29-2022 Erythrocyte distribution width (RBC) [Ratio] 13.1 % 10.8 - 14.9 % [facility] Hematocrit (Bld) [Volume fraction] 33.0 % Low 34.9 - 44.3 % [facility] Hemoglobin (Bld) [Mass/Vol] 10.5 g/dL Low 11.4 - 15.2 g/dL [facility] Interpretation and review of laboratory results Abnormal [facility] MCH (RBC) [Entitic mass] 27.1 pg 25.9 - 33.9 pg [facility] MCHC (RBC) [Mass/Vol] 31.8 g/dL 31.4 - 35.9 g/dL [facility] MCV (RBC) [Entitic vol] 85.1 fL 79.6 - 97.7 fL [facility] Platelet mean volume (Bld) [Entitic vol] 9.1 fL 8.5 - 12.2 fL [facility] Platelets (Bld) [#/Vol] 423 10*3/uL High 150 - 393 K/uL [facility] RBC (Bld) [#/Vol] 3.88 10*6/uL Low [facility] WBC (Bld) [#/Vol] 7.36 10*3/uL 3.99 - 11. 19 K/uL [facility] CHEM 7 (LYTES,BUN,CREA,GLUC) on 05-29-2022 Anion gap [Moles/Vol] 13 mmol/L 7 - 17 mmol/L [facility] Chloride [Moles/Vol] 104 mmol/L 98 - 10 8 mmol/L [facility] CO2 [Moles/Vol] 26 mmol/L 21 - 31 mmol/L [facility] Creatinine [Mass/Vol] 0.66 mg/dL 0.50 - 1.20 mg/dL [facility] GFR/1.73 sq M.predicted CKD-EPI (S/P/Bld) [Vol rate/Area] - [facility] Comment on above: Reported eGFR is bas ed on the CKD-EPI 2020 equation using creatinine, age, and sex. Glucose [Mass/Vol] 93 mg/dL 70 - 99 mg/dL [facility] Osmolality Calc [Osmolality] 288 [facility] Potassium [Moles/Vol] 4.2 mmol/L 3.5 - 5.0 mmol/L [facility] Sodium [Moles/Vol] 139 mmol/L 135 - 145 mmol/L [facility] Urea nitrogen [Mass/Vol] 5 mg/dL Low 7 - 25 mg/dL [facility] Urea nitrogen/Creatinine [Mass ratio] 8 mg/mg [facility] MAGNESIUMon 05-29-2022 Magnesium [Mass/Vol] 2.1 mg/dL 1.6 - 2 .6 mg/dL [facility] No Panel Informationon 05-29 Interpretation and review of laboratory results Abnormal [facility] Interpretation and review of laboratory results Normal [facility] PHOSPHATE, INORGANICon 05-29 Phosphate [Mass/Vol] 4.8 mg/dL High 2.2 - 4 .6 mg/dL [facility] CALCIUMon 05-28-2022 Calcium [Mass/Vol] 8.6 mg/dL 8.6 - 10. 5 mg/dL [facility] CBC,PLATELETSon 05-28-2022 Erythrocyte distribution width (RBC) [Ratio] 13.0 % 10.8 - 14.9 % [facility] Hematocrit (Bld) [Volume fraction] 30.5 % Low 34.9 - 44.3 % [facility] Hemoglobin (Bld) [Mass/Vol] 9.8 g/dL Low 11.4 - 15.2 g/dL [facility] Interpretation and review of laboratory results Abnormal [facility] MCH (RBC) [Entitic mass] 26.8 pg 25.9 - 33.9 pg [facility] MCHC (RBC) [Mass/Vol] 32.1 g/dL 31.4 - 35.9 g/dL [facility] MCV (RBC) [Entitic vol] 83.6 fL 79.6 - 97.7 fL [facility] Platelet mean volume (Bld) [Entitic vol] 9.3 fL 8.5 - 12.2 fL [facility] Platelets (Bld) [#/Vol] 374 10*3/uL 150 - 393 K/uL [facility] RBC (Bld) [#/Vol] 3.65 10*6/uL Low [facility] WBC (Bld) [#/Vol] 6.07 10*3/uL 3.99 - 11. 19 K/uL [facility] CHEM 7 (LYTES,BUN,CREA,GLUC) on 05-28-2022 Anion gap [Moles/Vol] 11 mmol/L 7 - 17 mmol/L [facility] Chloride [Moles/Vol] 106 mmol/L 98 - 10 8 mmol/L [facility] CO2 [Moles/Vol] 25 mmol/L 21 - 31 mmol/L [facility] Creatinine [Mass/Vol] 0.50 mg/dL 0.50 - 1.20 mg/dL [facility] GFR/1.73 sq M.predicted CKD-EPI (S/P/Bld) [Vol rate/Area] - [facility] Comment on above: Reported eGFR is bas ed on the CKD-EPI 2020 equation using creatinine, age, and sex. Glucose [Mass/Vol] 89 mg/dL 70 - 99 mg/dL [facility] Osmolality Calc [Osmolality] 285 [facility] Potassium [Moles/Vol] 4.1 mmol/L 3.5 - 5.0 mmol/L [facility] Sodium [Moles/Vol] 138 mmol/L 135 - 145 mmol/L [facility] Urea nitrogen [Mass/Vol] 3 mg/dL Low 7 - 25 mg/dL [facility] Urea nitrogen/Creatinine [Mass ratio] 6 mg/mg [facility] MAGNESIUMon 05-28-2022 Magnesium [Mass/Vol] 1.8 mg/dL 1.6 - 2 .6 mg/dL [facility] No Panel Informationon 05-28 Interpretation and review of laboratory results Abnormal [facility] Interpretation and review of laboratory results Normal [facility] PHOSPHATE, INORGANICon 05-28 Phosphate [Mass/Vol] 4.9 mg/dL High 2.2 - 4 .6 mg/dL [facility] CALCIUMon 05-27-2022 Calcium [Mass/Vol] 8.6 mg/dL 8.6 - 10. 5 mg/dL [facility] CBC,PLATELETSon 05-27-2022 Erythrocyte distribution width (RBC) [Ratio] 12.9 % 10.8 - 14.9 % [facility] Hematocrit (Bld) [Volume fraction] 31.1 % Low 34.9 - 44.3 % [facility] Hemoglobin (Bld) [Mass/Vol] 10.1 g/dL Low 11.4 - 15.2 g/dL [facility] Interpretation and review of laboratory results Abnormal [facility] MCH (RBC) [Entitic mass] 27.2 pg 25.9 - 33.9 pg [facility] MCHC (RBC) [Mass/Vol] 32.5 g/dL 31.4 - 35.9 g/dL [facility] MCV (RBC) [Entitic vol] 83.8 fL 79.6 - 97.7 fL [facility] Platelet mean volume (Bld) [Entitic vol] 9.2 fL 8.5 - 12.2 fL [facility] Platelets (Bld) [#/Vol] 344 10*3/uL 150 - 393 K/uL [facility] RBC (Bld) [#/Vol] 3.71 10*6/uL Low [facility] WBC (Bld) [#/Vol] 6.21 10*3/uL 3.99 - 11. 19 K/uL [facility] CHEM 7 (LYTES,BUN,CREA,GLUC) on 05-27-2022 Anion gap [Moles/Vol] 11 mmol/L 7 - 17 mmol/L [facility] Chloride [Moles/Vol] 105 mmol/L 98 - 10 8 mmol/L [facility] CO2 [Moles/Vol] 26 mmol/L 21 - 31 mmol/L [facility] Creatinine [Mass/Vol] 0.49 mg/dL Low 0.50 - 1.20 mg/dL [facility] GFR/1.73 sq M.predicted CKD-EPI (S/P/Bld) [Vol rate/Area] - [facility] Comment on above: Reported eGFR is bas ed on the CKD-EPI 2020 equation using creatinine, age, and sex. Glucose [Mass/Vol] 93 mg/dL 70 - 99 mg/dL [facility] Interpretation and review of laboratory results Abnormal [facility] Osmolality Calc [Osmolality] 285 [facility] Potassium [Moles/Vol] 4.0 mmol/L 3.5 - 5.0 mmol/L [facility] Sodium [Moles/Vol] 138 mmol/L 135 - 145 mmol/L [facility] Urea nitrogen [Mass/Vol] 3 mg/dL Low 7 - 25 mg/dL [facility] Urea nitrogen/Creatinine [Mass ratio] 6 mg/mg [facility] MAGNESIUMon 05-27-2022 Magnesium [Mass/Vol] 1.9 mg/dL 1.6 - 2 .6 mg/dL [facility] No Panel Informationon 05-27 Interpretation and review of laboratory results Normal [facility] PHOSPHATE, INORGANICon 05-27 Phosphate [Mass/Vol] 4.5 mg/dL 2.2 - 4 .6 mg/dL [facility] CALCIUMon 05-26-2022 Calcium [Mass/Vol] 8.4 mg/dL Low 8.6 - 10. 5 mg/dL [facility] CBC,PLATELETSon 05-26-2022 Erythrocyte distribution width (RBC) [Ratio] 12.8 % 10.8 - 14.9 % [facility] Hematocrit (Bld) [Volume fraction] 31.5 % Low 34.9 - 44.3 % [facility] Hemoglobin (Bld) [Mass/Vol] 10.0 g/dL Low 11.4 - 15.2 g/dL [facility] Interpretation and review of laboratory results Abnormal [facility] MCH (RBC) [Entitic mass] 27.0 pg 25.9 - 33.9 pg [facility] MCHC (RBC) [Mass/Vol] 31.7 g/dL 31.4 - 35.9 g/dL [facility] MCV (RBC) [Entitic vol] 84.9 fL 79.6 - 97.7 fL [facility] Platelet mean volume (Bld) [Entitic vol] 9.7 fL 8.5 - 12.2 fL [facility] Platelets (Bld) [#/Vol] 327 10*3/uL 150 - 393 K/uL [facility] RBC (Bld) [#/Vol] 3.71 10*6/uL Low [facility] WBC (Bld) [#/Vol] 7.91 10*3/uL 3.99 - 11. 19 K/uL [facility] CHEM 7 (LYTES,BUN,CREA,GLUC) on 05-26-2022 Anion gap [Moles/Vol] 13 mmol/L 7 - 17 mmol/L [facility] Chloride [Moles/Vol] 102 mmol/L 98 - 10 8 mmol/L [facility] CO2 [Moles/Vol] 23 mmol/L 21 - 31 mmol/L [facility] Creatinine [Mass/Vol] 0.48 mg/dL Low 0.50 - 1.20 mg/dL [facility] GFR/1.73 sq M.predicted CKD-EPI (S/P/Bld) [Vol rate/Area] - [facility] Comment on above: Reported eGFR is bas ed on the CKD-EPI 2020 equation using creatinine, age, and sex. Glucose [Mass/Vol] 154 mg/dL High 70 - 99 mg/dL [facility] Osmolality Calc [Osmolality] 282 [facility] Potassium [Moles/Vol] 4.1 mmol/L 3.5 - 5.0 mmol/L [facility] Sodium [Moles/Vol] 134 mmol/L Low 135 - 145 mmol/L [facility] Urea nitrogen [Mass/Vol] 3 mg/dL Low 7 - 25 mg/dL [facility] Urea nitrogen/Creatinine [Mass ratio] 6 mg/mg [facility] MAGNESIUMon 05-26-2022 Magnesium [Mass/Vol] 1.8 mg/dL 1.6 - 2 .6 mg/dL [facility] No Panel Informationon 05-26 Interpretation and review of laboratory results Abnormal [facility] Interpretation and review of laboratory results Normal [facility] PHOSPHATE, INORGANICon 05-26 Phosphate [Mass/Vol] 3.4 mg/dL 2.2 - 4 .6 mg/dL [facility] CALCIUMon 05-25-2022 Calcium [Mass/Vol] 8.5 mg/dL Low 8.6 - 10. 5 mg/dL [facility] CBC,PLATELETSon 05-25-2022 Erythrocyte distribution width (RBC) [Ratio] 12.8 % 10.8 - 14.9 % [facility] Hematocrit (Bld) [Volume fraction] 31.7 % Low 34.9 - 44.3 % [facility] Hemoglobin (Bld) [Mass/Vol] 9.8 g/dL Low 11.4 - 15.2 g/dL [facility] Interpretation and review of laboratory results Abnormal [facility] MCH (RBC) [Entitic mass] 26.6 pg 25.9 - 33.9 pg [facility] MCHC (RBC) [Mass/Vol] 30.9 g/dL Low 31.4 - 35.9 g/dL [facility] MCV (RBC) [Entitic vol] 85.9 fL 79.6 - 97.7 fL [facility] Platelet mean volume (Bld) [Entitic vol] 9.7 fL 8.5 - 12.2 fL [facility] Platelets (Bld) [#/Vol] 292 10*3/uL 150 - 393 K/uL [facility] RBC (Bld) [#/Vol] 3.69 10*6/uL Low [facility] WBC (Bld) [#/Vol] 9.85 10*3/uL 3.99 - 11. 19 K/uL [facility] CHEM 7 (LYTES,BUN,CREA,GLUC) on 05-25-2022 Anion gap [Moles/Vol] 13 mmol/L 7 - 17 mmol/L [facility] Chloride [Moles/Vol] 104 mmol/L 98 - 10 8 mmol/L [facility] CO2 [Moles/Vol] 24 mmol/L 21 - 31 mmol/L [facility] Creatinine [Mass/Vol] 0.51 mg/dL 0.50 - 1.20 mg/dL [facility] GFR/1.73 sq M.predicted CKD-EPI (S/P/Bld) [Vol rate/Area] - [facility] Comment on above: Reported eGFR is bas ed on the CKD-EPI 2020 equation using creatinine, age, and sex. Glucose [Mass/Vol] 98 mg/dL 70 - 99 mg/dL [facility] Osmolality Calc [Osmolality] 283 [facility] Potassium [Moles/Vol] 4.0 mmol/L 3.5 - 5.0 mmol/L [facility] Sodium [Moles/Vol] 137 mmol/L 135 - 145 mmol/L [facility] Urea nitrogen [Mass/Vol] 2 mg/dL Low 7 - 25 mg/dL [facility] Urea nitrogen/Creatinine [Mass ratio] 4 mg/mg [facility] MAGNESIUMon 05-25-2022 Magnesium [Mass/Vol] 1.8 mg/dL 1.6 - 2 .6 mg/dL [facility] No Panel Informationon 05-25 Interpretation and review of laboratory results Abnormal [facility] Interpretation and review of laboratory results Normal [facility] PHOSPHATE, INORGANICon 05-25 Phosphate [Mass/Vol] 3.2 mg/dL 2.2 - 4 .6 mg/dL [facility] CALCIUMon 05-24-2022 Calcium [Mass/Vol] 7.9 mg/dL Low 8.6 - 10. 5 mg/dL [facility] CBC,PLATELETSon 05-24-2022 Erythrocyte distribution width (RBC) [Ratio] 13.2 % 10.8 - 14.9 % [facility] Hematocrit (Bld) [Volume fraction] 33.0 % Low 34.9 - 44.3 % [facility] Hemoglobin (Bld) [Mass/Vol] 10.4 g/dL Low 11.4 - 15.2 g/dL [facility] Interpretation and review of laboratory results Abnormal [facility] MCH (RBC) [Entitic mass] 27.2 pg 25.9 - 33.9 pg [facility] MCHC (RBC) [Mass/Vol] 31.5 g/dL 31.4 - 35.9 g/dL [facility] MCV (RBC) [Entitic vol] 86.2 fL 79.6 - 97.7 fL [facility] Platelet mean volume (Bld) [Entitic vol] 9.7 fL 8.5 - 12.2 fL [facility] Platelets (Bld) [#/Vol] 270 10*3/uL 150 - 393 K/uL [facility] RBC (Bld) [#/Vol] 3.83 10*6/uL Low [facility] WBC (Bld) [#/Vol] 13.10 10*3/uL High 3.99 - 11 .19 K/uL [facility] CHEM 7 (LYTES,BUN,CREA,GLUC) on 05-24-2022 Anion gap [Moles/Vol] 10 mmol/L 7 - 17 mmol/L [facility] Chloride [Moles/Vol] 105 mmol/L 98 - 10 8 mmol/L [facility] CO2 [Moles/Vol] 24 mmol/L 21 - 31 mmol/L [facility] Creatinine [Mass/Vol] 0.51 mg/dL 0.50 - 1.20 mg/dL [facility] GFR/1.73 sq M.predicted CKD-EPI (S/P/Bld) [Vol rate/Area] - [facility] Comment on above: Reported eGFR is bas ed on the CKD-EPI 2020 equation using creatinine, age, and sex. Glucose [Mass/Vol] 121 mg/dL High 70 - 99 mg/dL [facility] Osmolality Calc [Osmolality] 281 [facility] Potassium [Moles/Vol] 4.1 mmol/L 3.5 - 5.0 mmol/L [facility] Sodium [Moles/Vol] 135 mmol/L 135 - 145 mmol/L [facility] Urea nitrogen [Mass/Vol] 2 mg/dL Low 7 - 25 mg/dL [facility] Urea nitrogen/Creatinine [Mass ratio] 4 mg/mg [facility] MAGNESIUMon 05-24-2022 Interpretation and review of laboratory results Normal [facility] Magnesium [Mass/Vol] 1.7 mg/dL 1.6 - 2 .6 mg/dL [facility] [facility] No Panel Informationon 05-24 Interpretation and review of laboratory results Abnormal [facility] PHOSPHATE, INORGANICon 05-24 Phosphate [Mass/Vol] 2.1 mg/dL Low 2.2 - 4 .6 mg/dL [facility] CALCIUMon 05-23-2022 Calcium [Mass/Vol] 8.0 mg/dL Low 8.6 - 10. 5 mg/dL [facility] Interpretation and review of laboratory results Abnormal [facility] CBC,PLATELETSon 05-23-2022 Erythrocyte distribution width (RBC) [Ratio] 13.0 % 10.8 - 14.9 % [facility] Hematocrit (Bld) [Volume fraction] 38.4 % 34.9 - 44.3 % [facility] Hemoglobin (Bld) [Mass/Vol] 12.3 g/dL 11.4 - 15.2 g/dL [facility] Interpretation and review of laboratory results Abnormal [facility] MCH (RBC) [Entitic mass] 26.8 pg 25.9 - 33.9 pg [facility] MCHC (RBC) [Mass/Vol] 32.0 g/dL 31.4 - 35.9 g/dL [facility] MCV (RBC) [Entitic vol] 83.7 fL 79.6 - 97.7 fL [facility] Platelet mean volume (Bld) [Entitic vol] 9.6 fL 8.5 - 12.2 fL [facility] Platelets (Bld) [#/Vol] 354 10*3/uL 150 - 393 K/uL [facility] RBC (Bld) [#/Vol] 4.59 10*6/uL [facility] WBC (Bld) [#/Vol] 12.80 10*3/uL High 3.99 - 11 .19 [facility] [place] [facility] 7 (LYTES,BUN,CREA,GLUC) Ordered By: Shraddha Munguia on 05-23-2022 Anion gap [Moles/Vol] 13 mmol/L 7 - 17 mmol/L [facility] Chloride [Moles/Vol] 103 mmol/L 98 - 10 8 mmol/L [facility] CO2 [Moles/Vol] 24 mmol/L 21 - 31 mmol/L [facility] Creatinine [Mass/Vol] 0.68 mg/dL 0.50 - 1.20 mg/dL [facility] GFR/1.73 sq M.predicted CKD-EPI (S/P/Bld) [Vol rate/Area] - PINF [facility] Comment on above: Reported eGFR is bas ed on the CKD-EPI 2020 equation using creatinine, age, and sex. Glucose [Mass/Vol] 148 mg/dL High 70 - 99 mg/dL [facility] Interpretation and review of laboratory results Abnormal [facility] Osmolality Calc [Osmolality] 285 [facility] Potassium [Moles/Vol] 4.9 mmol/L 3.5 - 5.0 mmol/L [facility] Sodium [Moles/Vol] 135 mmol/L 135 - 145 mmol/L [facility] Urea nitrogen [Mass/Vol] 4 mg/dL Low 7 - 25 mg/dL [facility] Urea nitrogen/Creatinine [Mass ratio] 6 mg/mg [facility] MAGNESIUMon 05-23-2022 Magnesium [Mass/Vol] 2.5 mg/dL 1.6 - 2 .6 mg/dL [facility] No Panel Informationon 05-23 Interpretation and review of laboratory results Normal [facility] PHOSPHATE, INORGANICon 05-23 Phosphate [Mass/Vol] 2.7 mg/dL 2.2 - 4 .6 mg/dL [facility] BETA HCG, URINE (POC DEVICE) on 05-22-2022 Beta HCG ( test) Ql (U) Negative Negative [facility] Interpretation and review of laboratory results Normal [facility] Test performed at address of the patient encounter. [facility] CALCIUMon 05-22-2022 Calcium [Mass/Vol] 7.8 mg/dL Low 8.6 - 10. 5 mg/dL [facility] CBC,PLATELETSon 05-22-2022 Erythrocyte distribution width (RBC) [Ratio] 12.7 % 10.8 - 14.9 % [facility] Hematocrit (Bld) [Volume fraction] 37.0 % 34.9 - 44.3 % [facility] Hemoglobin (Bld) [Mass/Vol] 12.0 g/dL 11.4 - 15.2 g/dL [facility] Interpretation and review of laboratory results Abnormal [facility] MCH (RBC) [Entitic mass] 26.3 pg 25.9 - 33.9 pg [facility] MCHC (RBC) [Mass/Vol] 32.4 g/dL 31.4 - 35.9 g/dL [facility] MCV (RBC) [Entitic vol] 81.0 fL 79.6 - 97.7 fL [facility] Platelet mean volume (Bld) [Entitic vol] 9.5 fL 8.5 - 12.2 fL [facility] Platelets (Bld) [#/Vol] 350 10*3/uL 150 - 393 K/uL [facility] RBC (Bld) [#/Vol] 4.57 10*6/uL [facility] WBC (Bld) [#/Vol] 17.70 10*3/uL High 3.99 - 11 .19 K/uL [facility] CHEM 7 (LYTES,BUN,CREA,GLUC) on 05-22-2022 Anion gap [Moles/Vol] 16 mmol/L 7 - 17 mmol/L [facility] Chloride [Moles/Vol] 103 mmol/L 98 - 10 8 mmol/L [facility] CO2 [Moles/Vol] 21 mmol/L 21 - 31 mmol/L [facility] Creatinine [Mass/Vol] 0.56 mg/dL 0.50 - 1.20 mg/dL [facility] GFR/1.73 sq M.predicted CKD-EPI (S/P/Bld) [Vol rate/Area] - PINF [facility] Comment on above: Reported eGFR is bas ed on the CKD-EPI 2020 equation using creatinine, age, and sex. Glucose [Mass/Vol] 133 mg/dL High 70 - 99 mg/dL [facility] Osmolality Calc [Osmolality] 285 [facility] Potassium [Moles/Vol] 3.9 mmol/L 3.5 - 5.0 mmol/L [facility] Sodium [Moles/Vol] 136 mmol/L 135 - 145 mmol/L [facility] Urea nitrogen [Mass/Vol] 6 mg/dL Low 7 - 25 mg/dL [facility] Urea nitrogen/Creatinine [Mass ratio] 11 mg/mg [facility] CONTINUOUS CARDIAC MONITORIN G STRIPon 05-22-2022 [facility] CONTINUOUS CARDIAC MONITORIN G STRIPOrdered By: Unassigned Pacs on 05-22-2022 [facility] Work Phone: HEPATIC FUNCTION PANELon Albumin [Mass/Vol] 3.8 g/dL 3.5 - 5.0 g/dL [facility] ALP [Catalytic activity/Vol] 54 U/L 32 - 126 U/L [facility] ALT [Catalytic activity/Vol] 17 U/L 9 - 48 U/L [facility] AST [Catalytic activity/Vol] 23 U/L 10 - 39 U/L [facility] Bilirubin [Mass/Vol] 0.5 mg/dL NINF - 1.5 mg/dL [facility] Bilirubin.direct [Mass/Vol] 0.2 mg/dL NINF - 0.3 mg/dL [facility] Protein [Mass/Vol] 6.3 g/dL Low 6.4 - 8.3 g/dL [facility] MAGNESIUMon 05-22-2022 Magnesium [Mass/Vol] 1.4 mg/dL Low 1.6 - 2 .6 mg/dL [facility] No Panel Informationon 05-22 ABO/RH(D) TYPE Positive [facility] BLOOD COMPONENT TYPE Red Cells, Leukoreduced [facility] EXPIRATION DATE [id number] [facility] Product ABO/RH(D) Positive [facility] Product ABO/RH(D) NUMBER [id number] [facility] PRODUCT CODE [id number] [facility] UNIT STATUS released [facility] Interpretation and review of laboratory results Abnormal [facility] PHOSPHATE, INORGANICon 05-22 Interpretation and review of laboratory results Normal [facility] Phosphate [Mass/Vol] 3.3 mg/dL 2.2 - 4 .6 mg/dL [facility] POC ARTERIAL BLOOD GASon Base excess Calc (Bld) [Moles/Vol] -2.1000 mmol/L -3.0 - 3.0 mmol/L [facility] Calcium.ionized (Bld) [Mass/Vol] 4.22 mg/dL Low 4.60 - 5.30 mg/dL [facility] CO2 (Bld) [Partial pressure] 33 mm[Hg] [facility] Glucose [Mass/Vol] 127 mg/dL High 70 - 99 mg/dL [facility] HCO3 (Bld) [Moles/Vol] 22 mmol/L 22 - 28 mmol/L [facility] Hematocrit (Bld) [Volume fraction] 34.5 % 34.2 - 45.6 % [facility] Hemoglobin (Bld) [Mass/Vol] 11.3 g/dL Low 11.4 - 15.2 g/dL [facility] Interpretation and review of laboratory results Abnormal [facility] Lactate [Moles/Vol] 1.2 mmol/L 0.5 - 1. 6 mmol/L [facility] Oxygen (Bld) [Partial pressure] 230 mm[Hg] High [facility] Oxygen saturation in Blood 99 % [facility] pH (Bld) 7.42 [pH] 7.35 - 7.45 [facility] Potassium [Moles/Vol] 3.6 mmol/L 3.5 - 5.0 mmol/L [facility] Sodium [Moles/Vol] 137 mmol/L 135 - 145 mmol/L [facility] Specimen source Nom (Unsp spec) Arterial [facility] Test performed at address of the patient encounter. [facility] Base excess Calc (Bld) [Moles/Vol] 0.0 mmol/L -3.0 - 3.0 mmol/L [facility] Calcium.ionized (Bld) [Mass/Vol] 4.56 mg/dL Low 4.60 - 5.30 mg/dL [facility] CO2 (Bld) [Partial pressure] 38 mm[Hg] [facility] Glucose [Mass/Vol] 138 mg/dL High 70 - 99 mg/dL [facility] HCO3 (Bld) [Moles/Vol] 24 mmol/L 22 - 28 mmol/L [facility] Hematocrit (Bld) [Volume fraction] 34.7 % 34.2 - 45.6 % [facility] Hemoglobin (Bld) [Mass/Vol] 11.3 g/dL Low 11.4 - 15.2 g/dL [facility] Interpretation and review of laboratory results Abnormal [facility] Oxygen (Bld) [Partial pressure] 197 mm[Hg] High [facility] Oxygen saturation in Blood 99 % [facility] pH (Bld) 7.42 [pH] 7.35 - 7.45 [facility] Potassium [Moles/Vol] 3.4 mmol/L Low 3.5 - 5.0 mmol/L [facility] Sodium [Moles/Vol] 138 mmol/L 135 - 145 mmol/L [facility] Specimen source Nom (Unsp spec) Arterial [facility] Test performed at address of the patient encounter. [facility] PREPARE TO TRANSFUSE OR RED BLOOD CELLSon 05-22-2022 UNIT NUMBER [id number] [facility] UNIT NUMBER [id number] [facility] PROTIME-INRon 05-22-2022 INR Coag (Bld) [Relative time] 1.2 {INR} High 0.9 - 1.1 [facility] Interpretation and review of laboratory results Abnormal [facility] PT Coag (PPP) [Time] 14.8 s High [facility] TYPE AND SCREENon 05-22-2022 ABO/RH(D) TYPE Positive [facility] XR Abdomen Single viewon IMPRESSION: Appropriate [...] nasogastric tube in the stomach. [facility] Radiology Study observation (narrative) [facility] XR Abdomen Single viewOrdere d By: Debora Burciaga on 05-22-2022 [facility] Work Phone: PREG HCG QUALon 04-08-2022 , QUAL Negative Normal NEGATIVE [facility] Comment on above: Performed By: #### P REG #### [facility] [address], [place] [address] Dr. Esthela Stevens Covid-19 PCR ([facility])on 03-19 SARS-CoV-2 (COVID-19) RNA JORGE LUIS+probe Ql (Unsp spec) Not detected Normal NOT DETECTED [facility] Comment on above: Result Comment: This test is not yet approved or cleared by the [place] FDA. When there are no FDA-approved or cleared tests available, and other criteria are met, FDA can make tests available under an emergency access mechanism called an Emergency Use Authorization (EUA). The EUA for this test is supported by the [place] of Health and Human Service's (HHS's) declaration [...] By: #### L IVER, LDH, BMP #### [facility] [address], [place] [address] Abdomen and Pelvis [...] error, please notify the sender immediately at [phone] and permanently delete the original report and [...] error, please notify the sender immediately at [phone] and permanently delete the original report and destroy any copies or printouts. [facility] CT Abdomen and Pelvis W cont rast IVOrdered By: Avinash Miller on 04-01-2022 [facility] CT Chest W contrast Jason IMPRESSION: [...] evidence for intrathoracic metastatic disease [facility] CT Chest W contrast IVOrdere d By: Yovany Bills on 03-31-2022 [facility] Work Phone: No Panel Informationon 03-31 Radiology Study observation (narrative) [facility] CBC AND ELECTRONIC DIFFon Basophils (Bld) [#/Vol] 0.05 10*3/uL 0.00 - 0.15 K/uL [facility] Basophils/100 WBC (Bld) 0.6 % [facility] Differential cell count method Nom (Bld) Electronic Differential [facility] Eosinophils (Bld) [#/Vol] 0.07 10*3/uL 0.00 - 0.42 K/uL [facility] Eosinophils/100 WBC (Bld) 0.8 % [facility] Erythrocyte distribution width (RBC) [Ratio] 13.4 % 10.8 - 14.9 % [facility] Hematocrit (Bld) [Volume fraction] 37.9 % 34.9 - 44.3 % [facility] Hemoglobin (Bld) [Mass/Vol] 11.9 g/dL 11.4 - 15.2 g/dL [facility] Immature granulocytes (Bld) [#/Vol] 0.04 10*3/uL <=0.08 [facility] Immature granulocytes/100 WBC (Bld) 0.5 % [facility] Interpretation and review of laboratory results Abnormal [facility] Lymphocytes (Bld) [#/Vol] 2.33 10*3/uL 1.16 - 3.51 K/uL [facility] Lymphocytes/100 WBC (Bld) 27.4 % [facility] MCH (RBC) [Entitic mass] 26.3 pg 25.9 - 33.9 pg [facility] MCHC (RBC) [Mass/Vol] 31.4 g/dL 31.4 - 35.9 g/dL [facility] MCV (RBC) [Entitic vol] 83.8 fL 79.6 - 97.7 fL [facility] Monocytes (Bld) [#/Vol] 0.46 10*3/uL 0.22 - 0.87 K/uL [facility] Monocytes/100 WBC (Bld) 5.4 % [facility] Neutrophils (Bld) [#/Vol] 5.55 10*3/uL 1.64 - 7.28 K/uL [facility] Nucleated RBC/100 WBC (Bld) [Ratio] 0.0 % <=0.2 /100 WBC [facility] Platelet mean volume (Bld) [Entitic vol] 10.0 fL 8.5 - 12.2 fL [facility] Platelets (Bld) [#/Vol] 402 10*3/uL High 150 - 393 K/uL [facility] RBC (Bld) [#/Vol] 4.52 10*6/uL [facility] Segmented neutrophils/100 WBC (Bld) 65.3 % [facility] WBC (Bld) [#/Vol] 8.50 10*3/uL 3.99 - 11. 19 K/uL [facility] COMPREHENSIVE METABOLIC PANE Shamir 03-19-2022 Albumin [Mass/Vol] 4.5 g/dL 3.5 - 5.0 g/dL [facility] ALP [Catalytic activity/Vol] 67 U/L 32 - 126 U/L [facility] ALT [Catalytic activity/Vol] 15 U/L 9 - 48 U/L [facility] Anion gap [Moles/Vol] 16 mmol/L 7 - 17 mmol/L [facility] AST [Catalytic activity/Vol] 14 U/L 10 - 39 U/L [facility] Bilirubin [Mass/Vol] 0.4 mg/dL <1.5 [facility] Calcium [Mass/Vol] 9.8 mg/dL 8.6 - 10. 5 mg/dL [facility] Chloride [Moles/Vol] 100 mmol/L 98 - 10 8 mmol/L [facility] CO2 [Moles/Vol] 27 mmol/L 21 - 31 mmol/L [facility] Creatinine [Mass/Vol] 0.66 mg/dL 0.50 - 1.20 mg/dL [facility] GFR/1.73 sq M.predicted CKD-EPI (S/P/Bld) [Vol rate/Area] >90 >=60 mL/min/1.73m2 [facility] Comment on above: Reported eGFR is bas ed on the CKD-EPI 2020 equation using creatinine, age, and sex. Glucose [Mass/Vol] 73 mg/dL 70 - 99 mg/dL [facility] Osmolality Calc [Osmolality] 287 [facility] Potassium [Moles/Vol] 3.6 mmol/L 3.5 - 5.0 mmol/L [facility] Protein [Mass/Vol] 7.4 g/dL 6.4 - 8.3 g/dL [facility] Sodium [Moles/Vol] 139 mmol/L 135 - 145 mmol/L [facility] Urea nitrogen [Mass/Vol] 10 mg/dL 7 - 25 mg/dL [facility] Urea nitrogen/Creatinine [Mass ratio] 15 mg/mg [facility] PT,INR,PTTon 03-19-2022 aPTT Coag (PPP) [Time] 36.5 s [facility] INR Coag (Bld) [Relative time] 1.2 {INR} [facility] Interpretation and review of laboratory results Abnormal [facility] PT Coag (PPP) [Time] 14.6 s [facility] CBC AUTO DIFFon 02-03-2022 BASO # 0.1 103/ul Normal 0.0-0.1 [facility] Comment on above: Performed By: #### L IVER, LDH, BMP #### [facility] [address] [place] [address] [address] Esthela Stevens Basophils/100 WBC (Bld) 0.5 % Normal 0.2-2.0 [facility] Comment on above: Performed By: #### L IVER, LDH, BMP #### [facility] [address] [place] [address] [address] Esthela Stevens EO # 0.1 103/ul Normal 0.0-0.7 [facility] Comment on above: Performed By: #### L IVER, LDH, BMP #### [facility] [address] [place] [address] Dr. Esthela Stevens Eosinophils/100 WBC (Bld) 1.2 % Normal 0.9-7.0 [facility] Comment on above: Performed By: #### L IVER, LDH, BMP #### [facility] [address] [place] [address] Dr. Esthela Stevens Erythrocyte distribution width (RBC) [Ratio] 13.2 % Normal 11.0-15.0 [facility] Comment on above: Performed By: #### L IVER, LDH, BMP #### [facility] [address] [place] [address] Dr. Esthela Stevens Hematocrit (Bld) [Volume fraction] 38.4 % Normal 36.0-48.0 [facility] Comment on above: Performed By: #### L IVER, LDH, BMP #### [facility] [address] [place] [address] Dr. Esthela Stevens Hemoglobin (Bld) [Mass/Vol] 12.2 g/dL Normal 12.0-16.0 [facility] Comment on above: Performed By: #### L IVER, LDH, BMP #### [facility] [address] [place] [address] Dr. Esthela Stevens IG # 0.06 10e3/ul Critically high 0.00-0.03 [facility] Comment on above: Performed By: #### L IVER, LDH, BMP #### [facility] [address] [place] [address] Dr. Esthela Stevens IG % 0.6 % Critically high 0.0-0.5 [facility] Comment on above: Performed By: #### L IVER, LDH, BMP #### [facility] [address] [place] [address] Dr. Esthela Stevens LYMPH # 2.1 103/ul Normal 1.2-3.8 [facility] Comment on above: Performed By: #### L IVER, LDH, BMP #### [facility] [address] [address] [address] Esthela Stevens Lymphocytes/100 WBC (Bld) 21.7 % Normal 20.5-60.0 [facility] Comment on above: Performed By: #### L IVER, LDH, BMP #### [facility] [address] [place] [address] Dr. Esthela Stevens MANUAL DIFF REQ NO Normal [facility] Comment on above: Performed By: #### L IVER, LDH, BMP #### [facility] [address] [place] [address] Dr. Esthela Stevens MCH (RBC) [Entitic mass] 26.5 pg Critically low 26.7-34.0 [facility] Comment on above: Performed By: #### L IVER, LDH, BMP #### [facility] [address] [place] [address] Dr. Esthela Stevens MCHC (RBC) [Mass/Vol] 31.8 g/dL Normal 29.9-35.2 [facility] Comment on above: Performed By: #### L IVER, LDH, BMP #### [facility] [address] [place] [address] Dr. Esthela Stevens MCV (RBC) [Entitic vol] 83.5 fL Normal 81.0-99.0 [facility] Comment on above: Performed By: #### L IVER, LDH, BMP #### [facility] [address] [place] [address] Dr. Esthela Stevens MONO # 0.7 103/ul Normal 0.3-0.8 [facility] Comment on above: Performed By: #### L IVER, LDH, BMP #### [facility] [address] [place] [address] Dr. Esthela Stevens Monocytes/100 WBC (Bld) 7.5 % Normal 1.7-12.0 [facility] Comment on above: Performed By: #### L IVER, LDH, BMP #### [facility] [address] [place] [address] Dr. Esthela Stevens NEUT # 6.8 103/ul Critically high 1.4-6.5 [facility] Comment on above: Performed By: #### L IVER, LDH, BMP #### [facility] [address] [address] [address] Esthela Stevens Neutrophils/100 WBC (Bld) 68.5 % Normal 43.0-75.0 [facility] Comment on above: Performed By: #### L IVER, LDH, BMP #### [facility] [address] [place] [address] Dr. Esthela Stevens Platelet mean volume (Bld) [Entitic vol] 9.4 fL Critically low 9.5-13.5 [facility] Comment on above: Performed By: #### L IVER, LDH, BMP #### [facility] [address] [place] [address] Dr. Esthela Stevens PLT 403 103/ul Normal 150-450 [facility] Comment on above: Performed By: #### L IVER, LDH, BMP #### [facility] [address] [place] [address] Dr. Esthela Stevens RBC 4.60 106/ul Normal 4.20-5.40 [facility] Comment on above: Performed By: #### L IVER, LDH, BMP #### [facility] [address] [place] [address] Dr. Esthela Stevens WBC 9.9 103/ul Normal 4.0-11.0 [facility] Comment on above: Performed By: #### L IVER, LDH, BMP #### [facility] [address] [place] [address] ABD/PELV W CONon [...] CAROLYN WALSH Date: 2022-02-03 12:14 Normal [facility] Covid-19 PCR ([facility])on 01-16 SARS-CoV-2 (COVID-19) RNA JORGE LUIS+probe Ql (Unsp spec) Not detected Normal NOT DETECTED [facility] Comment on above: Result Comment: When [...] for this test is supported by the [place] of Health and Human Service's declaration that [...] By: #### L IVER, LDH, BMP #### [facility] [address] [place] [address] Dr. Esthela Stevens ER URINE PROFILEon 2 Bilirubin Ql (U) Negative Normal NEGATIVE [facility] Comment on above: Performed By: #### Toñito SANCHEZ UMICRO #### [facility] [address] [place] [address] Dr. Esthela Stevens Clarity (U) CLEAR Normal CLEAR [facility] Comment on above: Performed By: #### Toñito SANCHEZ UMICRO #### [facility] [address] [place] [address] [address] Esthela Stevens Color (U) LT. YELLOW Normal YELLOW [facility] Comment on above: Performed By: #### Toñito SANCHEZ UMICRO #### [facility] [address] [place] [address] Dr. Esthela ARGUELLES A micrscopic examination will be performed if indicated. Normal [facility] Comment on above: Performed By: #### Toñito SANCHEZ UMICRO #### [facility] [address] [place] [address] Dr. Esthela Stevens Glucose Ql (U) Negative Normal NEGATIVE [facility] Comment on above: Performed By: #### Toñito SANCHEZ UMICRO #### [facility] [address] [place] [address] Dr. Esthela Stevens Hemoglobin Ql (U) Negative Normal NEGATIVE [facility] Comment on above: Performed By: #### Toñito SANCHEZ UMICRO #### [facility] [address] [place] [address] Dr. Esthela Stevens Ketones Ql (U) Negative Normal NEGATIVE [facility] Comment on above: Performed By: #### Toñito SANCHEZ UMICRO #### [facility] [address] [place] [address] Dr. Esthela Stevens LEUKOCYTES SMALL Abnormal NEGATIVE [facility] Comment on above: Performed By: #### Toñito SANCHEZ UMICRO #### [facility] [address] [place] [address] Dr. Esthela Stevens Nitrite Ql (U) Negative Normal NEGATIVE [facility] Comment on above: Performed By: #### Toñito SANCHEZ UMICRO #### [facility] [address] [place] [address] Dr. Esthela Stevens pH (U) 7.0 [pH] Normal 5-9 [facility] Comment on above: Performed By: #### ERUM WALLACERO #### [facility] [address] [place] [address] Dr. Esthela Stevens SPEC GRAVITY 1.015 Normal 1.005-<=1.025 [facility] Comment on above: Performed By: #### ERUM WALLACERO #### [facility] [address] [place] [address] Dr. Esthela Stevens UA PROTEIN Negative Normal NEGATIVE/ TRACE [facility] Comment on above: Performed By: #### ERUM WALLACERO #### [facility] [address] [place] [address] Dr. Esthela Stevens UR MICRO IND INDICATED Normal [facility] Comment on above: Performed By: #### ERUM WALLACERO #### [facility] [address] [place] [address] Dr. Esthela Stevens Urobilinogen Qn (U) 0.2 {Emeka'U}/dL Normal 0.2 - 1. 0 [facility] Comment on above: Performed By: #### ERUM WALLACERO #### [facility] [address] [place] [address] Dr. Esthela Stevens LACTATE/LACTIC ACIDon 2021 Lactate [Moles/Vol] 1.3 mmol/L Normal 0.4-1.9 [facility] Comment on above: Performed By: #### P REG #### [facility] [address] [place] [address] Dr. Esthela Stevens LIPASEon 02-03-2022 Lipase [Catalytic activity/Vol] 58.0 U/L Critically low 73.0-393.0 [facility] Comment on above: Performed By: #### L IPA, CMP #### [facility] [address] [place] [address] Dr. Esthela Stevens PREG HCG QUALon 02-03-2022 , QUAL Negative Normal NEGATIVE [facility] Comment on above: Performed By: #### L IVER, LDH, BMP #### [facility] [address] [address] [address] Esthela Stevens PROF 14(COMP METB)on 022 Albumin [Mass/Vol] 3.8 g/dL Normal 3.4-5.0 [facility] Comment on above: Performed By: #### L IPA, CMP #### [facility] [address] [address] [address] Esthela Stevens Albumin/Globulin [Mass ratio] 1.0 {ratio} Normal [facility] Comment on above: Performed By: #### L IPA, CMP #### [facility] [address] [place] [address] Dr. Esthela Stevens ALP [Catalytic activity/Vol] 75 U/L Normal 46-116 [facility] Comment on above: Performed By: #### L IPA, CMP #### [facility] [address] [place] [address] Dr. Esthela Stevens ALT [Catalytic activity/Vol] 37 U/L Normal 14-59 [facility] Comment on above: Performed By: #### L IPA, CMP #### [facility] [address] [place] [address] Dr. Esthela Stevens Anion gap [Moles/Vol] 14.0 mmol/L Normal [facility] Comment on above: Performed By: #### L IPA, CMP #### [facility] [address] [place] [address] Dr. Esthela Stevens AST [Catalytic activity/Vol] 14 U/L Critically low 15-37 [facility] Comment on above: Performed By: #### L IPA, CMP #### [facility] [address] [place] [address] Dr. Esthela Stevens Bilirubin [Mass/Vol] 0.2 mg/dL Normal 0.2-1.0 [facility] Comment on above: Performed By: #### L IPA, CMP #### [facility] [address] [place] [address] Dr. Esthela Stevens Calcium [Mass/Vol] 8.9 mg/dL Normal 8.5-10.1 [facility] Comment on above: Performed By: #### L IPA, CMP #### [facility] [address] [address] [address] Esthela Stevens Chloride [Moles/Vol] 103 mmol/L Normal 98-107 [facility] Comment on above: Performed By: #### L IPA, CMP #### [facility] [address] [address] [address] Esthela Stevens CO2 [Moles/Vol] 25.2 mmol/L Normal 21.0-32.0 [facility] Comment on above: Performed By: #### L IPA, CMP #### [facility] [address] [address] [address] Esthela Stevens Creatinine [Mass/Vol] 0.72 mg/dL Normal 0.55-1.02 [facility] Comment on above: Performed By: #### L IPA, CMP #### [facility] [address] [address] [address] Esthela Stevens EGFR-AF PAKISTANI >60 Normal >=60 [facility] Comment on above: Performed By: #### L IPA, CMP #### [facility] [address] [address] [address] Esthela Stevens EGFR-NON AF PAKISTANI >60 Normal >=60 [facility] Comment on above: Performed By: #### L IPA, CMP #### [facility] [address] [address] [address] Esthela Stevens Globulin (S) [Mass/Vol] 3.7 g/dL Normal [facility] Comment on above: Performed By: #### L IPA, CMP #### [facility] [address] [address] [address] Esthela Stevens Glucose [Mass/Vol] 101 mg/dL Normal 74-106 [facility] Comment on above: Performed By: #### L IPA, CMP #### [facility] [address] [address] [address] Esthela Stevens Potassium [Moles/Vol] 4.2 mmol/L Normal 3.5-5.1 [facility] Comment on above: Performed By: #### L IPA, CMP #### [facility] [address] [address] [address] Esthela Stevens Protein [Mass/Vol] 7.5 g/dL Normal 6.4-8.2 [facility] Comment on above: Performed By: #### L IPA, CMP #### [facility] [address] [place] [address] Dr. Esthela Stevens Sodium [Moles/Vol] 138 mmol/L Normal 136-145 [facility] Comment on above: Performed By: #### L IPA, CMP #### [facility] [address] [place] [address] Dr. Esthela Stevens Urea nitrogen [Mass/Vol] 11.0 mg/dL Normal 7.0-18.0 [facility] Comment on above: Performed By: #### L IPA, CMP #### [facility] [address] [place] [address] Dr. Esthela Stevens Urea nitrogen/Creatinine [Mass ratio] 15.3 mg/mg Normal [facility] Comment on above: Performed By: #### L IPA, CMP #### [facility] [address] [place] [address] Dr. Esthela Stevens URINE MICROSCOPIC ONLYon BACTERIA NONE SEEN Normal NONE SEEN [facility] Comment on above: Performed By: #### E YELENAR UMICRO #### [facility] [address] [place] [address] Dr. Esthela Stevens Bacteria identified Cx Nom (U) NOT INDICATED Normal [facility] Comment on above: Performed By: #### E RUR, UMICRO #### [facility] [address] [place] [address] Dr. Esthela Stevens CAST NONE SEEN Normal NONE SEEN [facility] Comment on above: Performed By: #### E RUR, UMICRO #### [facility] [address] [place] [address] Dr. Esthela Stevens Crystals LM Nom (Urine sed) NONE SEEN Normal NONE SEEN [facility] Comment on above: Performed By: #### E RUR, UMICRO #### [facility] [address] [address] [address] Esthela Stevens Epithelial cells LM Ql (Urine sed) FEW Abnormal NONE SEEN /RARE [facility] Comment on above: Performed By: #### ERUM WALLACERO #### [facility] [address] [address] [address] Esthela Stevens MUCOUS NONE SEEN Normal NONE SEEN [facility] Comment on above: Performed By: #### ERUM WALLACERO #### [facility] [address] [address] [address] Esthela Stevens RBC 0-2 Normal 0-2 [facility] Comment on above: Performed By: #### ERUM WALLACERO #### [facility] [address] [address] [address] Esthela Stevens WBC 2-5 Abnormal NONE SEEN [facility] Comment on above: Performed By: #### ERUM WALLACERO #### [facility] [address] [address] [address] Esthela Stevens Test, Urineon -0 Beta HCG ( test) Ql (U) Negative [employer] Other Urinalysis - AUTOMATEDon Appearance (U) clear [employer] Other Bilirubin Ql (U) Negative [employer] Other Color (U) yellow [employer] Other Glucose Ql (U) Negative [employer] Other Hemoglobin Ql (U) Negative [employer] Other Ketones Ql (U) 15 [employer] Other Leukocyte esterase Test strip Ql (U) Negative [employer] Other Nitrite Ql (U) Negative [employer] Other pH (U) 7.0 [pH] [employer] Other Protein Ql (U) Negative [employer] [facility] [employer] Other Specific gravity (U) [Rel density] 1.020 [employer] Other Urobilinogen (U) [Mass/Vol] 0.2 mg/dL [employer] Other Urinalysis - AUTOMATED [employer] Other Coding Summary.on 02-18-2021 Coding Summary. CD:[id number] Gh0bWw+PGhlYWQ+PE1FV WHtW80vqMJavJ9HE8zUC I0AXUSCJFKUMI6RLK0hq KC7WRhlD7IszdDt HesjsZJjRF72DMs1JMU8 hQyfCRmeqY9yhFRnS0x7 ZmSmAZ37uF03HLwkABXs QiY9ReQqexucsOMx B4ptGiZgqSXaOnm+PHRh YmxlIHdpZHRoPScxMDAl UlVymLqyIC3rTc1wPSUx LWNvbGxhcHNlOiBj s1aaCMKeLHcpMO4joBfu X2PkdIB5EEQqt8i1Hz00 dHI+ECCmMOC3rOafGEst o709AbBzq3jmAKN3 tBVbDEpwOLI4A01ww7U2 LBFgFLBaGLB0cUU0aC6j wKncrcgcC3GhtXEzNbE4 JWU5sBEnsT4fsWfl rjyxrH4bVwn+S16TQJ2C UCUQJY4PWod1C1TqExcp dHI+KW02UUCqTN95eECu eTOcw4aunNm1LrXk HAAlZFD7rXdeQFohn2Xc ENVbM13yjBWzy3W3CDIu kLluxYTbBxRptSM3gB8d WLkuckpzp0okwvpw Kdkvt8nlop27yC42U14a AHueLVFoOMH0VDVcQVVb bQlojl9irO1rNf8+IDxj f7oqv3cxjYo5MeRz ANBevaBkjFpxKSB7n3Jy Hh63B5ZfiXocu4EpFvg0 hh01fTByx8K1mMO1IBuy IYIoiG3bQHtsPyR8 JHXgLqGuiT73pCLxAEyo Sp7vrBrxrRkfCC5yBWKg utyyDAUxcU4eZVDeqOSz nIgvFN9sRCVbztic n391VaOeMKL1HLJezPRw O0FnyO2nOsUsBICdMSNj R7XicOXpBUhnU584ULis JnK0OOEojkFwV4He MJJgzZzsUyR4b5K9Vr9V d1LtvcvbMVH6LOehDPW0 QtZyDeObFcG0N1JyBoj6 ZBUxwSkpPA3jG3Ih CUErcdgghiutdGH7UNAg EOUmlU27oIIaBQgbIo0e w5S8l320WSKaLBFoaR80 Pw0lkGzcFNKgbULB fW8wixlnf5egtgtvBiGm FYZcQAd8FNt0CHXvbYow JqDmRAO2PxA3CNI3dIEu pD0oeKdmxtnqbM9e Oyc+V09xfO4dFNO1DRR0 hyhdNMHpsmVrEV10SK23 A7ZsEcbxdUEckYU+PGRp roBgsXwoLX2pXkBo g8rbt6VfVOfwP0MdENCo WAkfKzj2PDOsEUH8gQA1 mB9fMVUfEGmna6U1sFR7 V6DllmKtni3im5nt USPgZFoxW16zfAOlg9H0 WMEpeES1XCAwySgaHaIg gZ46Njw+XAYtiIxsv2Sa Phpbz8bov9pzrOt1 IjMwJSIgdmFsaWduPSJ0 f9WoDb69E70tXRvpACSa LBDtPRSqBGJnxYxjlu4u pU8iWz5+PGNvbCB3 oJV4bZ5pUVFfVjD9MSoz O893GgLjzTGgCgmif2vc x4uuyOv2VyQjWMAnlcLj kQoxNAH6y5TlAm19 Z52rYYtoZJNcLVRxMAYt IJFxaJpbkh0wgH3gQi4+ FA4wz0ltvi58cI96uOY+ GZXqFJZ3yKkoWTyf IGSaxO4pGMcbJpW1WXUj SnZqeF73zRWuSBmmSe3s lPbefZhuWV6lZWKfsqop l844UuGdu1afZECn nPMsVTxjYSM0V80oa8W0 XEQzGWRhHPW2xLL7qK7f bGlnbjogbGVmdDsgdmVy uEplXZyeCMdhO062 IHRvcDsnPlBhdGllbnQg CkZfLPb2Y2KoMeq8AHUc kQhcSL8jiNJfNRfyZo3p rBgwpMwmJG7dIGXg vgzbz582JjQcw6ajUQYb eFUjBTsnJIJ8S47gn9U8 YQMwLSOzFLB2lDI1hD4b bGlnbjogbGVmdDsg mwJkiXqzYVnqMArtB823 IHRvcDsnPkJpcnRoIERh jQV5MN05YG70yDUkv9C6 iWP4N9TuYLDxiflu qzpklEJ9KJDhMMVobA64 It1xxRhzVx4xWWWpZTV5 BPKekPSsJ6MbcS9dRwWt MHFxKECeQ5XfuPQf LHtnI933KStrLeS5YGUu doLkA3VmGAJxxWviTkU5 z0C3Cq0ZB2F8FW88OK25 vHQve2K1eVI6I5Nz GSBbtqjvnkrdrSQ1QVEw AHMvnN88Ez3rdUdvLq4b FYGxTLP8HYDddJEzV1Hh sJ9jRiYiCMWoXURd P0VeeEZwNKceN041CEaz ErF2SLEsasAjX1JeUOIi zHocJoO4h4J5Px0BSQs7 OX61NA51aWGik4S8 ePF3P8NxAWPftpvasbpz xWM2RWAeFIWleC14Th0d uIfdAc3fOUDdLCS2YGLa qSCgX9CjmV3tUaJh HVAyARMhG3WswYIsIBxs I577SEcsFcT1OUVgufFh N1HkZGClhPqzBxL1e1N8 Pa2ATUPkNT70CSC2 wPH8UM95WQ54H4UtTdmi dGFibGU+PHRhYmxlIHdp ZHRoPScxMDAlJyBzdHls EJ9rGs1lIVTeSDJb hUtcwTTbWqIup4bdCGDs RLbvQL4etNdmS5OhxJS7 ZMQbb9u5Vs82M64bH4Ss dXA+ZGMsbOO7eVD2 oT6wXvDzTkL3BJjwJ519 MqLdgQLfGzsge7pbv1sh fGo8OnZ4YIDmcfKpcTcu UCY6c7RrGt49P71f IHdpZHRoPSIxNSUiIHZh xIsifx5niO4hHc1+PGNv sNC8kBV9pB9kCaKgFlI0 CGxdK976AoJrxKWu Dgioz2gdd2ucrYf0TqVe ELTcelAbfOefTPB2a4Mf Ch21P3XrpKgnq8ZyBvy1 ni42uDGsz8S4uHK8 S0EoZMUwsyxupQNxkEek IJ0hOHMxhnntPUNxzE2z SYRgV8h1QhXsLdC7JHmr G5ZzqtB2VGZhjPPl GNxzEHQ3V34zi6X4ISYf KOEhCLY9hOT1zE7gtCmb bjogbGVmdDsgdmVydGlj NInhDUccO314EFUw eVxdKPDmxK4eDYIdpNTu eQipRD2pGIRwdqsyAjoD NObSWbmmF3WJNCGNYRl2 R2KlUvx7KHFsaYae WV1rpYCyGRoeBq0aqOwu zEzrQT6aUTNzsvfjWLKp nA7sDUPgvZHhiPxzOV4v BBYlarmgw808HqJr VIR5XPWbpCIzB7MfhS8r ApJmIPZcTITtO1CieYMx PAmpU567GTsxDzU0OCWk ncIgF8FkSWPunXma ZkH9e0E7Uu2jEF4kIH3q OAl9KH33BJ92uJNde9O2 wTZ6T9HiZKJhqymirbye uFT5LKGsCULheQ34 dWUqBRcyGv6si0E8t152 OXJmCZUrhP99Wk5kwJdw FBSccSNVvB5iitvit1in cjogIzAwMDAwMDt0 ANl5MLFwxEsrHeYrKFU0 HwF9ABS3tICplU6jxMnu hsmxyZ2iLkn+MjMgWWVh eaE6S4AtPzj1ERJu jLenDZ1taZLlTRioMy6x gBxuxFpmKY1cQJLzsqel PPNcdE5bIOKvwEPigWuk EV6rKCKcoyvzn680 HhAwWLM0WTHbbLZbH7Es rW4mYoFoSKSlJZSjE8Wq yPMoIQeyF018SLiwRtT6 IOZkcgHwX4GuMRYa nOpvTlE7p3O0Xi3ZVE4f aGY8M7GnUpx1CLHdnFhz LZ7pjYGsOFayEl9tuGsg oCqeCD0uAZWbomnv IEXvuD2hKAAtgGTlqIlw HS4nMXMouvagi288LoVx GWH4XFPslNQfZ3VphH7o BgQjJYGiOEGnA2Kl nZRdSBpiX403MTakAiX1 NFDqorVeB3GuCLYfgSxm QxN2c3F8By1CfSVtJ3An A9t7R5IzEmowrVI+ VF82OVBuJL70uBDptTIl p4ajkPr8NvWqHLMuAPT8 iFhcMQjag9WtUWYcO92p yLFln2D3SNTipVcv kNCeKgHraQO1iU4uGAty xenis8hpuzmmOlnxs7kh vz67bS43J94lCRquUOGi PSIzMCUiIHZhbGln xj2qhY9pDq5+PGNvbCB3 bTX9cL1aIaYbEkD0FZhq V977VfGytBMfOzkvk7mg c1gvhPn3VkEjVBKy erEffOxwTVK3m2VoNu48 T19hWLvaZIQtSZBkTJGs VDFpmBzkrp6dcM7aIe6+ LA6pd0jpji47qJ48 dHI+FTSuTSJ3cRxfRSuf CGLslC2nTUhrKdY9YWOz LwVejP65oUSiQYdtGy4r oBrzvImdAH4nOSSz ctaub984ItAab1glFECe eBUeEIqwFFR6D43ey9H7 ZKYxDMAaPBR8zXX3lQ4w bGlnbjogbGVmdDsg wyAhzNdhWSslEYxcO684 JKUqiLjkZbRgeCYyF9yn hwXIRC3eDrvhlFA+PHRk EXT8cYgyQAgsOVMf nD8lDOWpG6t2LrKnJzJ9 DChgM2ZsxvG9DSIqsQFn UVGofAWQfE5lfyuia0rz cjogIzAwMDAwMDt0 YEz1OTZncZdeYqVoLLF1 ZrK1ILH5hSAtjF2auVxf mrcajU4bUil+RklOOjwv dGQ+SWFwLJE3xTcr RSwfAVNnzS5aDHHjT7k5 JoOvEdS4ZNxaR7ElunU4 PWRdmWBaQLBgfOIMxS5d kdfwj4vsetmxQlWp JFXqTGe7XOo8ABJpsGcc MaLuNFW2TkX3YYE9dKOk tE3seAgzypiniM7sGzw+ TVJOOjwvdGQ+PHRk UKC0gKcpTCrqIREldL5b AQUeK3r7PnWpCvD6HFme P8IqkkW7GGCefAPkNHDb xERTsC4ojxtgj5rl tbnvCxHvPNOpXAe0DYp5 ZLCruGraXrPcRPW5ZoH0 EHO9mIKtoJ7swJjrkgwx qB3jPjz+DBT0NDZ3 JT56ZP35E5DwPalnrOJj bGU+PHRhYmxlIHdpZHRo FBosTLOgUtVlhOnuXW3v Tr1sBEGdKKNnuCci cHNl (more content not included)... Normal [facility] Consent for Treatmenton Consent for Treatment [id number] #1.00CD:127 Normal [facility] Discharge Instructionson Discharge Instructions [id number] 3#1.00CD:127 Normal [facility] ED Clinical Summaryon 2020 ED Clinical Summary [address] [place] [id number] ED Clinical Summary Person Information Name: ZAINAB MCCLURE Johanna/[facility] Age: 25 Years : 1995 Sex: Female Language: Algerian PCP: ERIN SAMS CNP Marital Status: Single [...] 02/17/2021 11:52:53 02/17/2021 11:52:53 02/17/2021 11:52:53 ADDRESS: [address] [place] [address] [phone] [facility] DOC NOTES: MEDICAL INFORMATION: Prescriptions Given: New Medications Printed Prescriptions lorazepam (Ativan 1 mg Tab) 1 Tablets By Mouth every 8 hours for 2 Days. Take one by mouth every eight hours as needed. Refills: 0. PATIENT EDUCATION INFORMATION: Instructions: Suicidal Feelings: How to Help Yourself; Managing Anxiety, Adult Follow up: With: Address: [facility]: [facility] In 1 day 02/18/2021 With: Address: When: ERIN SAMS [address] [facility] [facility] [place] [id number] [phone] Business (1) In 3 days DIAGNOSIS: Anxiety; Suicidal ideation Normal [facility] ED Note-Physicianon 02-18-20 ED Note-Physician Basic Information [...] Oral, q8hr Follow-up With When Contact Information [facility] In 1 day 02/18/2021 EDT Additional Instructions: ERIN SAMS In 3 days [address] [facility] [place] [address] [phone] Business (1) Additional Instructions: Patient Education Suicidal Feelings: How to Help Yourself Managing Anxiety, Adult Problem List/Past Medical History Ongoing No qualifying data Historical No qualifying data Medications Inpatient No active inpatient medications Home No active home medications Allergies No Known Medication Allergies Lab Results No qualifying data available. Diagnostic Results No qualifying data available. Normal [facility] Comment on above: Result Comment: Elec maribelally Signed By: Carol Childers DO\.jim\Date and Time [...] services (911 in the [place] ? The [facility] and human services helpline (211 in the [place] ? Go to your nearest emergency department. ? Call a suicide hotline to speak with a trained counselor. The following suicide hotlines are available in the [place]: ? 1-940-005-TALK ( ). ? 9-745-WTYDZGK ( ). ? . This is a hotline for Uzbek speakers. ? . This is a hotline for TTY users. ? 2-141-1-U-RAMILA ( ). This is a hotline for lesbian, escobar, bisexual, transgender, or questioning youth. ? For a list of hotlines in [place], visit www.suicide.org/hotl zeferino/international/c kmcaw-rkbolzi-rwcgck es.html ? Contact a crisis center or [...] list of crisis centers in [place], visit: suicideprevention.nc How to help yourself feel better ? [...] even if you do not feel sociable. Jnmf-lg-fitj conversation is best to help them understand [...] can help you feel better. ? Take ajdk-lpk-xutgqjp and prescription medicines only as told by [...] friends. Get (more content not included)... Normal [facility] ED Patient Summaryon 021 ED Patient Summary [place] [id number] Patient Discharge Instructions Person Information Name: ZAINAB MCCLURE Age: 25 Years Arrival Date: 02/17/2021 09:42:11 Discharge Diagnosis: Anxiety; Suicidal ideation Primary Care Physician: ERIN SAMS CNP Provider Information Primary Provider: Carol Childers DO Advanced Bindery Chief:None The exam and treatment you received in the Emergency Department were for an urgent problem and are not intended as complete care. It is important that you follow up with a doctor, nurse practitioner, or physician?s medical record assistant for ongoing care. If your symptoms become worse or you do not improve as expected and you are unable to reach your usual health care provider, you should return to the Emergency Department. We are available 24 hours a day. ZAINAB MCCLURE has been given the following list of patient education materials, prescriptions and follow-up instructions: Follow-up Instructions: With: Address: When: [facility] In 1 day 02/18/2021 With: Address: When: ERIN SAMS [address] [facility] [place] [address] [phone] Business (1) In 3 days In the [...] opioids can be used to help relieve pwillqth-ne-duqigr pain and are often prescribed following a [...] care professio (more content not included)... Normal [facility] Valuables Checkliston 2020 Valuables Checklist [id number] 6#1.00CD:127 Normal [facility] Vital Signs Date Time Vital Sign Value Performing Clinician Facility 04-13-2024 18:10-0400 Diastolic blood pressure 74 mm[Hg] Andreas Ortega MD, MPH Work Phone: [facility] 04-13-2024 18:10-0400 Heart rate 72 /min Andreas Ortega MD, MPH Work Phone: [facility] 04-13-2024 18:10-0400 Systolic blood pressure 133 mm[Hg] Andreas Ortega MD, MPH Work Phone: [facility] 02-07-2024 12:49-0400 Diastolic blood pressure 76 mm[Hg] Yudelka Moralez [employer] CLEARING AGENT-SURFACE PLATE FINISHER Work Phone: [facility] 02-07-2024 12:49-0400 Heart rate 58 /min Yudelka Moralez [employer] CLEARING AGENT-SURFACE PLATE FINISHER Work Phone: [facility] 02-07-2024 12:49-0400 Systolic blood pressure 124 mm[Hg] Yudelka Moralez APRN-SURFACE PLATE FINISHER Work Phone: [facility] 02-07-2024 08:42-0400 Blood Pressure Location [facility] 02-07-2024 08:42-0400 Diastolic blood pressure 70 mm[Hg] Cortez Sarmini [facility] 02-07-2024 08:42-0400 Heart rate 70 /min Cortez Sarmini [facility] 02-07-2024 08:42-0400 Respiratory rate 18 /min Cortez Sarmini [facility] 02-07-2024 08:42-0400 Systolic blood pressure 116 mm[Hg] Cortez Sarmini [facility] 01-06-2024 15:06-0400 Body height 155 cm Carol Summers MD, PhD Work Phone: [facility] 01-06-2024 15:06-0400 Body mass index (BMI) [Ratio] 29.57 kg/m2 Carol Summers MD, PhD Work Phone: [facility] 01-06-2024 15:06-0400 Body temperature 97.9 [degF] Carol Summers MD, PhD Work Phone: [facility] 01-06-2024 15:06-0400 Body weight 71.03 kg Carol Summers MD, PhD Work Phone: [facility] 01-06-2024 15:06-0400 Diastolic blood pressure 77 mm[Hg] Carol Summers MD, PhD Work Phone: [facility] 01-06-2024 15:06-0400 Heart rate 65 /min Carol Summers MD, PhD Work Phone: [facility] 01-06-2024 15:06-0400 Respiratory rate 16 /min Carol Summers MD, PhD Work Phone: [facility] 01-06-2024 15:06-0400 SaO2% (BldA) [Mass fraction] 99 % Carol Summers MD, PhD Work Phone: [facility] 01-06-2024 15:06-0400 Systolic blood pressure 125 mm[Hg] Carol Summers MD, PhD Work Phone: [facility] 11-26-2023 09:32-0400 Body height 154.9 cm Dolores Johnson [employer] Work Phone: [facility] 11-26-2023 09:32-0400 Body mass index (BMI) [Ratio] 30.61 kg/m2 Dolores Johnson [employer]ER Work Phone: [facility] 11-26-2023 09:32-0400 Body weight 73.48 kg Dolores Johnson [employer]ER Work Phone: [facility] 11-26-2023 09:32-0400 Diastolic blood pressure 76 mm[Hg] Dolores Johnson [employer]ER Work Phone: [facility] 11-26-2023 09:32-0400 Heart rate 65 /min Dolores Johnson [employer] FINISHER Work Phone: [facility] 11-26-2023 09:32-0400 Respiratory rate 16 /min Dolores Johnson [employer]ISHER Work Phone: [facility] 11-26-2023 09:32-0400 SaO2% (BldA) [Mass fraction] 98 % Dolores Johnson [employer]ER Work Phone: [facility] 11-26-2023 09:32-0400 Systolic blood pressure 110 mm[Hg] Dolores Johnson [employer]ER Work Phone: [facility] 08-24-2023 10:09-0500 Body mass index (BMI) [Ratio] 32.44 kg/m2 Ron Ruano DO Work Phone: [facility] 08-24-2023 10:09-0500 Body weight 83.06 kg Ron Alden DO Work Phone: [facility] 08-24-2023 10:09-0500 Diastolic blood pressure 68 mm[Hg] Ron Alden DO Work Phone: [facility] 08-24-2023 10:09-0500 Systolic blood pressure 110 mm[Hg] Ron Alden DO Work Phone: [facility] 03-11-2023 09:53-0400 Body height 154.9 cm Daya Vigil [employer] [facility] Work [facility]: [facility] 12-10-2022 12:07-0400 Body height 155.2 cm Archie Hugo MD, PhD Work Phone: [facility] Comment on above: without shoes 12-10-2022 12:07-0400 Body mass index (BMI) [Ratio] 30.64 kg/m2 Archie Hugo MD, PhD Work Phone: [facility] 12-10-2022 12:07-0400 Body temperature 97.81 [degF] Archie Hugo MD, PhD Work Phone: [facility] 12-10-2022 12:07-0400 Body weight 73.8 kg Archie Hugo MD, PhD Work Phone: [facility] Comment on above: without shoes 12-10-2022 12:07-0400 Diastolic blood pressure 72 mm[Hg] Archie Hugo MD, PhD Work Phone: [facility] 12-10-2022 12:07-0400 Heart rate 77 /min Archie Hugo MD, PhD Work Phone: [facility] [facility] 12-10-2022 12:07-0400 Respiratory rate 14 /min Archie Hugo MD, PhD Work Phone: [facility] 12-10-2022 12:07-0400 SaO2% (BldA) [Mass fraction] 99 % Archie Hugo MD, PhD Work Phone: [facility] Comment on above: room air 12-10-2022 12:07-0400 Systolic blood pressure 118 mm[Hg] Archie Hugo MD, PhD Work Phone: [facility] 10-22-2022 13:57-0400 Body height 154.9 cm Rebekah Suero MD Work Phone: [facility] 10-22-2022 13:57-0400 Body mass index (BMI) [Ratio] 30.33 kg/m2 Rebekah Suero MD Work Phone: [facility] 10-22-2022 13:57-0400 Body temperature 97.59 [degF] Rebekah Suero MD Work Phone: [facility] 10-22-2022 13:57-0400 Body weight 72.8 kg Rebekah Suero MD Work Phone: [facility] 10-22-2022 13:57-0400 Diastolic blood pressure 62 mm[Hg] Rebekah Suero MD Work Phone: [facility] 10-22-2022 13:57-0400 Heart rate 62 /min Rebekah Suero MD Work Phone: [facility] 10-22-2022 13:57-0400 Respiratory rate 20 /min Rebekah Suero MD Work Phone: [facility] 10-22-2022 13:57-0400 SaO2% (BldA) [Mass fraction] 99 % Rebekah Suero MD Work Phone: [facility] 10-22-2022 13:57-0400 Systolic blood pressure 119 mm[Hg] Rebekah Suero MD Work Phone: [facility] 10-22-2022 10:19-0400 Body height 157.5 cm Ye Moralez [employer] CLEARING AGENT-SURFACE PLATE FINISHER Work Phone: [facility] 10-22-2022 10:19-0400 Body mass index (BMI) [Ratio] 28.66 kg/m2 Yudelka Moralez [employer] CLEARING AGENT-SURFACE PLATE FINISHER Work Phone: [facility] 10-22-2022 10:19-0400 Body weight 71.1 kg Yudelka Moralez [employer] CLEARING AGENT-SURFACE PLATE FINISHER Work Phone: [facility] 10-22-2022 10:19-0400 Diastolic blood pressure 76 mm[Hg] Yudelka Moralez [employer] CLEARING AGENT-SURFACE PLATE FINISHER Work Phone: [facility] 10-22-2022 10:19-0400 Systolic blood pressure 126 mm[Hg] Yudelka Moralez [employer] CLEARING AGENT-SURFACE PLATE FINISHER Work Phone: [facility] 10-22-2022 07:38-0400 Body height 157.5 cm Yudelka Moralez [employer] CLEARING AGENT-SURFACE PLATE FINISHER Work Phone: [facility] 10-22-2022 07:38-0400 Diastolic blood pressure 76 mm[Hg] Yudelka Moralez [employer] CLEARING AGENT-SURFACE PLATE FINISHER Work Phone: [facility] 10-22-2022 07:38-0400 Heart rate 73 /min Yudelka Moralez [employer] CLEARING AGENT-SURFACE PLATE FINISHER Work Phone: [facility] 10-22-2022 07:38-0400 Systolic blood pressure 126 mm[Hg] Yudelka Moralez [employer] CLEARING AGENT-SURFACE PLATE FINISHER Work Phone: [facility] 10-07-2022 11:05-0400 Body height 157.5 cm Yudelka Moralez [employer] CLEARING AGENT-SURFACE PLATE FINISHER Work Phone: [facility] 10-07-2022 11:05-0400 Body mass index (BMI) [Ratio] 28.66 kg/m2 Yudelka Moralez [employer] CLEARING AGENT-SURFACE PLATE FINISHER Work Phone: [facility] 10-07-2022 11:05-0400 Body temperature 98.2 [degF] Yudelka Moralez [employer] CLEARING AGENT-SURFACE PLATE FINISHER Work Phone: [facility] 10-07-2022 11:05-0400 Body weight 71.08 kg Yudelka Moralez [employer] CLEARING AGENT-SURFACE PLATE FINISHER Work Phone: [facility] 10-07-2022 11:05-0400 Diastolic blood pressure 74 mm[Hg] Yudelka Moralez [employer] CLEARING AGENT-SURFACE PLATE FINISHER Work Phone: [facility] 10-07-2022 11:05-0400 Heart rate 81 /min Yudelka Moralez [employer] CLEARING AGENT-SURFACE PLATE FINISHER Work Phone: [facility] 10-07-2022 11:05-0400 Respiratory rate 16 /min Yudelka Moralez [employer] CLEARING AGENT-SURFACE PLATE FINISHER Work Phone: [facility] 10-07-2022 11:05-0400 SaO2% (BldA) [Mass fraction] 99 % Yudelka Moralez [employer] CLEARING AGENT-SURFACE PLATE FINISHER Work Phone: [facility] 10-07-2022 11:05-0400 Systolic blood pressure 120 mm[Hg] Yudelka Moralez [employer] CLEARING [employer]ENT-SURFACE PLATE FINISHER Work Phone: [facility] 08-19-2022 15:43-0500 Diastolic blood pressure 88 mm[Hg] Andreas Ortega MD, MPH Work Phone: [facility] 08-19-2022 15:43-0500 Systolic blood pressure 117 mm[Hg] Andreas Ortega MD, MPH Work Phone: [facility] 07-08-2022 07:50-0500 Body height 157.5 cm Andreas Ortega MD, MPH Work Phone: [facility] 07-08-2022 07:50-0500 Body mass index (BMI) [Ratio] 28.73 kg/m2 Andreas Ortega MD, MPH Work Phone: [facility] 07-08-2022 07:50-0500 Body temperature 98.01 [degF] Andreas Ortega MD, MPH Work Phone: [facility] 07-08-2022 07:50-0500 Body weight 71.26 kg Andreas Ortega MD, MPH Work Phone: [facility] 07-08-2022 07:50-0500 Diastolic blood pressure 77 mm[Hg] Andreas Ortega MD, MPH Work Phone: [facility] 07-08-2022 07:50-0500 Heart rate 73 /min Andreas Ortega MD, MPH Work Phone: [facility] 07-08-2022 07:50-0500 Respiratory rate 16 /min Andreas Ortega MD, MPH Work Phone: [facility] 07-08-2022 07:50-0500 SaO2% (BldA) [Mass fraction] 98 % Andreas Ortega MD, MPH Work Phone: [facility] 07-08-2022 07:50-0500 Systolic blood pressure 121 mm[Hg] Andreas Ortega MD, MPH Work Phone: [facility] 06-09-2022 13:10-0500 Body mass index (BMI) [Ratio] 29.3 kg/m2 Raina Eliseo [employer] CLEARING [employer]ENT-SURFACE PLATE FINISHER Work Phone: [facility] 06-09-2022 13:10-0500 Body temperature 98.6 [degF] Raina Eliseo [employer] CLEARING [employer]ENT-SURFACE PLATE FINISHER Work Phone: [facility] 06-09-2022 13:10-0500 Body weight 72.67 kg Raina Eliseo [employer] CLEARING [employer]ENT-SURFACE PLATE FINISHER Work Phone: [facility] 06-09-2022 13:10-0500 Diastolic blood pressure 60 mm[Hg] Raina Gomes [employer] CLEARING AGENT-SURFACE PLATE FINISHER Work Phone: [facility] 06-09-2022 13:10-0500 Heart rate 80 /min [facility] Work Phone: [facility] 06-09-2022 13:10-0500 Respiratory rate 16 /min [facility] Work Phone: [facility] 06-09-2022 13:10-0500 SaO2% (BldA) [Mass fraction] 98 % Raina [facility] Work Phone: 0(232)355-406223 [place] [address] 06-09-2022 13:10-0500 Systolic blood pressure 110 mm[Hg] Raina [facility] Work Phone: 5(599)621-758641 [address] 05-29-2022 07:32-0500 Body temperature 98.01 [degF] Archie Hugo MD, PhD Work Phone: 0(914)827-931741 [address] 05-29-2022 07:32-0500 Diastolic blood pressure 64 mm[Hg] Archie Hugo MD, PhD Work Phone: 5(822)737-110841 [address] 05-29-2022 07:32-0500 Heart rate 77 /min Archie Hugo MD, PhD Work Phone: [facility] 05-29-2022 07:32-0500 Respiratory rate 16 /min Archie Hugo MD, PhD Work Phone: [facility] 05-29-2022 07:32-0500 SaO2% (BldA) [Mass fraction] 99 % Archie Hugo MD, PhD Work Phone: 8(369)869-777241 [address] 05-29-2022 07:32-0500 Systolic blood pressure 100 mm[Hg] Archie Hugo MD, PhD Work Phone: 8(260)196-334141 [address] 05-22-2022 15:50-0400 Body height 157.5 cm Archie Hugo MD, PhD Work Phone: [facility] 05-22-2022 15:50-0400 Body mass index (BMI) [Ratio] 30.73 kg/m2 Archie Hugo MD, PhD Work Phone: 9(286)612-092941 [address] 05-22-2022 15:50-0400 Body weight 76.2 kg Archie Hugo MD, PhD Work Phone: 1(305)382-434941 [address] 03-31-2022 12:02-0400 Diastolic blood pressure 70 mm[Hg] [facility] Work Phone: 5(322)349-527300 [place] [address] 03-31-2022 12:02-0400 Systolic blood pressure 124 mm[Hg] [facility] Work Phone: 2(714)223-695500 [place] [address] 03-31-2022 11:53-0400 Body height 157.5 cm [facility] Work Phone: 3(569)578-575600 [place] [address] 03-19-2022 15:37-0400 Body height 158.3 cm Archie Hugo MD, PhD Work Phone: 8(279)931-774800 [place] [address] 03-19-2022 15:37-0400 Body mass index (BMI) [Ratio] 30.63 kg/m2 Archie Hugo MD, PhD Work Phone: 1(456)232-899900 [place] [address] 03-19-2022 15:37-0400 Body temperature 97.5 [degF] Archie Hugo MD, PhD Work Phone: 0(243)783-205441 [address] 03-19-2022 15:37-0400 Body weight 76.75 kg Archie Hugo MD, PhD Work Phone: 2(111)151-233300 [place] [address] 03-19-2022 15:37-0400 Diastolic blood pressure 84 mm[Hg] Archie Hugo MD, PhD Work Phone: 2(524)550-624641 [address] 03-19-2022 15:37-0400 Heart rate 90 /min Archie Hugo MD, PhD Work Phone: 7(880)141-756141 [address] 03-19-2022 15:37-0400 Respiratory rate 16 /min Archie Hugo MD, PhD Work Phone: [facility] 03-19-2022 15:37-0400 SaO2% (BldA) [Mass fraction] 98 % Archie Hugo MD, PhD Work Phone: [facility] 03-19-2022 15:37-0400 Systolic blood pressure 128 mm[Hg] Archie Hugo MD, PhD Work Phone: [facility] 12-22-2021 18:05-0400 Body height 152.4 cm Ava Tamika Other [employer] Other 12-22-2021 18:05-0400 Body mass index (BMI) [Ratio] 30.62 kg/m2 Ava Tamika Other [employer] Other 12-22-2021 18:05-0400 Body temperature 99 [degF] Ava Tamika Other [employer] Other 12-22-2021 18:05-0400 Body weight 71.12 kg Ava Hooverault Other [employer] Other 12-22-2021 18:05-0400 Diastolic blood pressure 89 mm[Hg] Ava Tamika Other [employer] Other 12-22-2021 18:05-0400 Respiratory rate 16 /min Ava Tamika Other [employer] Other 12-22-2021 18:05-0400 SaO2% (BldA) [Mass fraction] 99 % Ava Tamika Other [employer] Other 12-22-2021 18:05-0400 Systolic blood pressure 129 mm[Hg] Ava Lundberg Other [facility] [employer] Other Encounters Encounter Date Encounter Type Care Provider Facility Start: 04-19-2024 ambulatory ERIN SAMS [facility] Start: 04-13-2024 ambulatory ANDREAS ORTEGA Facility: [facility] Start: 04-13-2024 End: 04-13-2024 Subsequent hospital visit by physician Andreas Ortega MD, MPH Work Phone: [facility] [place] Comment on above: Arrived Start: 04-13-2024 End: 04-13-2024 ambulatory [facility] Start: 04-12-2024 ambulatory YUDELKA [facility] Facility:[facility] Start: 04-11-2024 End: 04-11-2024 Telephone encounter Quin Kelly Division of Medical Oncology Comment on above: Change In Symptoms Start: 04-03-2024 End: 04-03-2024 Patient encounter procedure DRUM TENDER-C Erin Sams Work Phone: [facility] Start: 04-03-2024 End: 04-03-2024 ambulatory DRUM TENDER-C Erin Sams Work Phone: [facility] Work Phone: Start: 03-13-2024 End: 03-13-2024 Telephone encounter Andreas Ortega MD, MPH Work Phone: Division of Medical Oncology Comment on above: Advice Only Start: 02-10-2024 ambulatory YUDELKA MORALEZ Facility:[facility] Start: 02-07-2024 ambulatory YUDELKA MORALEZ Facility:[facility] Start: 02-07-2024 ambulatory YUDELKA MORALEZ Facility:[facility] Start: 02-07-2024 End: 02-07-2024 Subsequent hospital visit by physician Yudelka Moralez [employer]ARING [employer]ENT-SURFACE PLATE FINISHER Work Phone: Department of Radiology Comment on above: Arrived Start: 02-07-2024 End: 02-07-2024 ambulatory ERIN SAMS Facility:[facility] Start: 02-07-2024 End: 02-07-2024 Patient encounter procedure Diego Apodaca [facility] Start: 01-28-2024 ambulatory ERINSHAVON SAMS [facility] y:[facility] Start: 01-06-2024 End: 01-06-2024 Office outpatient visit 40 minutes Craol Summers MD, PhD Work Phone: Division of Medical Oncology Comment on above: 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); Diarrhea, unspecified type; Primary malignant neuroendocrine tumor of appendix; Carcinoid syndrome; Tachycardia; SOB (shortness of breath) Start: 01-06-2024 ambulatory CAROL SUMMERS Facility:[facility] Start: 12-30-2023 ambulatory ERIN SAMS Facility: [facility] Start: 11-26-2023 ambulatory YUDELKA MALICK Facility:[facility] Start: 11-26-2023 End: 11-26-2023 Office outpatient new 45 minutes Dolores Johnson [employer] CLEARING AGENT-SURFACE PLATE FINISHER Work Phone: [facility] [place] Comment on above: Elevated liver enzym es (Primary Dx) Start: 11-26-2023 ambulatory YUDELKA [facility] Facility:[facility] Start: 11-11-2023 End: 11-11-2023 ambulatory LIZBET CAST Not Available Start: 11-08-2023 ambulatory YUDELKA [facility] Facility:[facility] Start: 11-06-2023 End: 11-06-2023 Subsequent hospital visit by physician Andreas Ortega MD, MPH Work Phone: [facility] Comment on above: Arrived Start: 11-06-2023 ambulatory ANDREAS ORTEGA Facility: [facility] Start: 10-04-2023 End: 10-04-2023 ambulatory LIZBET CAST Not Available Start: 09-25-2023 End: 09-25-2023 ambulatory Ron Ruano Facility:[facility] Start: 09-20-2023 End: 09-20-2023 ambulatory RON RUANO [...] 06-01-2023 ambulatory RON ALDEN Not Available Start: 03-11-2023 End: 03-11-2023 Clinical Support Encounter Archie Hugo MD, PhD Work Phone: Clinical [facility] [place] [phone] 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 Start: 03-11-2023 End: 03-11-2023 Subsequent hospital visit by physician Daya Vigil [employer]ARING [employer]-SURFACE PLATE FINISHER Work Phone: Imaging [facility] Comment on above: Arrived Start: 12-10-2022 End: 12-10-2022 Office outpatient visit 15 minutes Archie Hugo MD, PhD Work Phone: Division of Surgical [...] Subsequent hospital visit by physician Yudelka Moralez APRN-SURFACE PLATE FINISHER Work Phone: [facility] [place] Start: 10-22-2022 End: 10-22-2022 Subsequent hospital visit by physician Yudelka Moralez [employer] CLEARING AGENT-SURFACE PLATE FINISHER Work Phone: [facility] [place] Comment on above: Arrived Start: 10-07-2022 End: 10-07-2022 Office outpatient visit 25 minutes Yudelka OLEARY Work Phone: Division of Medical Oncology Comment [...] medical examination without abnormal findings ERIN SAMS [facility] Start: 08-31-2022 End: 09-01-2022 ambulatory ERIN SAMS [...] visit by physician Yudelka OLEARY Work Phone: [facility] Comment on above: Arrived Start: 08-12-2022 End: [...] visit related to original px Raina Gomes [employer] CLEARING AGENT-SURFACE PLATE FINISHER Work Phone: Division of Surgical Oncology 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 Facility:[facility] Start: 04-06-2022 Encounter for preprocedural laboratory examination DR TIMMY HALL . 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) Start: 02-19-2022 Telephone encounter Intestinal Trans Coord Main Work Phone: Transplant Center Comment on above: Referral Request Start: 02-03-2022 End: 02-04-2022 ambulatory ERIN SAMS Facility:[facility] Start: 12-22-2021 End: 12-22-2021 ambulatory Ava Hooverault Other [facility] [employer] Other Start: 12-22-2021 Office outpatient vi sit 15 minutes Ava Lundberg [facility] Procedures Date Procedure Procedure Detail Performing Clinician Start: 04-13-2024 Ct abdomen & pelvis w/o contrst 1/> body re Andreas Ortega MD, MPH Work Phone: Start: 04-03-2024 Ultrasonography of b ilateral breasts DRUM TENDER-C Erin Sams Work Phone: Start: 03-11-2023 Mri abdomen w/o cont rast material Yudelka Moralez [employer] CLEARING AGENT-SURFACE PLATE FINISHER Work Phone: Start: 10-22-2022 Echo tthrc r-t 2d w/ wom-mode compl spec&colr d Yudelka Moralez [employer] CLEARING AGENT-SURFACE PLATE FINISHER Work Phone: Start: 10-22-2022 Ct soft tissue neck w/contrast material Yudelka Moralez [employer] CLEARING AGENT-SURFACE PLATE FINISHER Work Phone: Start: 10-22-2022 Ct thorax w/contrast material Yudelka Moralez [employer] CLEARING AGENT-SURFACE PLATE FINISHER Work Phone: Start: 10-07-2022 Natriuretic peptide Yudelka Moralez [employer] CLEARING AGENT-SURFACE PLATE FINISHER Work Phone: Start: 08-19-2022 Creatinine blood Marciano Ortega MD, MPH Work Phone: Start: 08-19-[address] atten uation skull base mid-thigh Yudelka Moralez [employer] CLEARING AGENT-SURFACE PLATE FINISHER Work Phone: Start: 05-29-2022 Assay of magnesium Dwaine Arnold MD Work Phone: Start: 05-28-2022 Assay of magnesium Dwaine Arnold MD Work Phone: Start: 05-27-2022 Assay of magnesium Dwaine Arnold MD Work Phone: Start: 05-27-2022 Partial resection of small bowel using robotic assistance Diego Apodaca Start: 05-27-2022 Right colectomy Erin benji Jordonvianney Start: 05-26-2022 Assay of magnesium Dwaine Arnold MD Work Phone: Start: 05-25-2022 Assay of magnesium [place] vannessa Arnold MD Work Phone: Start: 05-24-2022 Assay of magnesium [place] vannessa Arnold MD Work Phone: Start: 05-23-2022 Assay of magnesium [place] vannessa Arnold MD Work Phone: Start: 05-22-2022 Radiologic exam abdo men 1 view Narciso Hong MD Work Phone: Start: 05-22-2022 CONTINUOUS CARDIAC MONITORING STRIP Other Other Start: 05-22-2022 Bilirubin direct José Arnold MD Work Phone: Start: 05-22-2022 Calcium ionized Archie Hugo MD, PhD Work Phone: Start: 05-22-2022 CONTINUOUS CARDIAC MONITORING STRIP Other Other Start: 05-22-2022 Antibody screen Archie cha MD, PhD Work Phone: Start: 05-22-2022 Calcium ionized Archie Hugo MD, PhD Work Phone: Start: 05-22-2022 End: 05-22-2022 Colectomy partial w/anastomosis Archie Hugo MD, PhD Work Phone: Start: 05-22-2022 End: 05-22-2022 Hyperthermia intracavitary probes Archie Hugo MD, PhD Work Phone: Start: 05-22-2022 End: 05-22-2022 Resection recrt mal w/omentectomy pel lmphadec Archie Hugo MD, PhD Work Phone: Start: 05-22-2022 Blood typing serologic abo Liza M Cisneros PA-C Work Phone: Start: 05-22-2022 PREPARE TO TRANSFUSE OR RED BLOOD CELLS Liza Cisneros PA-C Work Phone: Start: 05-22-2022 Gonadotropin chorion ic qualitative Archie Hugo MD, PhD Work Phone: Start: 03-31-2022 Ct thorax w/contrast material Raina Mendoza Manson [employer] CLEARING AGENTGoGardenSURFACE PLATE FINISHER Work Phone: Start: 03-19-2022 CBC AND ELECTRONIC DIFF [facility] Work Phone: Start: 03-19-2022 Complete blood count with white cell differential, automated Raina Gomes [employer] CLEARING AGENTGoGardenSURFACE PLATE FINISHER Work Phone: Start: 03-19-2022 Comprehensive metabo lic panel Raina [facility]endoza [facility] Work Phone: Start: 02-03-2022 Laparoscopic appendectomy Diego Apodaca section Diego Sa rmini Cholecystectomy Diego Ruvalcaba mini Plan of Treatment Date Care Activity Detail Author Start: 01-11-2025 End: 01-11-2025 Patient encounter procedure 01/11/2025 2:40 PM EDT Office Visit Division of Medical Oncology [address] [place] [address] Carol Summers MD, PhD [address] [place] [address] Division of Medical Oncology Start: 06-06-2024 End: 06-06-2024 Patient encounter procedure 06/06/2024 9:00 AM EST Office Visit Division of Medical Oncology [address] [place] [address] Yudelka Moralez, [employer] CLEARING AGENT-SURFACE PLATE FINISHER [address] [place] [phone] Division of Medical Oncology Start: 05-23-2024 End: 05-23-2024 Clinical Support Encounter Clinical Lab [facility] Start: 04-25-2024 End: 04-25-2024 Patient encounter procedure 04/25/2024 9:00 AM EDT Appointment Imaging [facility] [address] [place] [address] Yudelka Moralez, [employer] CLEARING AGENT-SURFACE PLATE FINISHER [address] [place], [place] [phone] [facility] Start: 04-13-2024 Subsequent hospital visit by physician 04/13/2024 7:00 PM EDT Hospital Encounter [facility] [place] [address] [place] [address] Andreas Ortega MD, MPH [address] [facility] [address] [place] [address] [facility] [place] Start: 04-12-2024 End: 04-12-2024 Patient encounter procedure 04/12/2024 9:30 AM EDT Appointment [facility] [address] [place] [phone] Yudelka Moralez, [employer] CLEARING AGENT-SURFACE PLATE FINISHER [address] [place], [place] [phone] [facility] Start: 04-11-2024 End: 04-11-2025 CT Abdomen and Pelvis WO and W contrast IV CT ABDOMEN/PELVIS WITH AND WITHOUT CONTRAST Imaging STAT Primary malignant neuroendocrine tumor of appendix Expected: 04/11/2024, Expires: 04/11/2025 [facility] Comment on above: Expected: 04/11/2024, Expires: Start: 03-19-2024 Influenza vaccination [facility] Start: 03-02-2024 End: 03-02-2024 Telemedicine consultation with patient 03/02/2024 9:00 AM EDT Telemedicine [facility] [address] [place] [address] Dolores Johnson, [employer]S CLEARING AGENT-SURFACE PLATE FINISHER [address] [place] [address] [facility] [place] Start: 02-10-2024 End: 02-10-2024 Patient encounter procedure 02/10/2024 11:00 AM EDT Office Visit Division of Medical Oncology [address] [place] [address] [place] [phone] Andreas Ortega MD, MPH [address] [place] [address] Division of Medical Oncology Start: 01-28-2024 End: 01-28-2024 Patient encounter procedure 01/28/2024 11:30 AM EDT Appointment Imaging [facility] [address] [place] [phone] Yudelka Moralez, [employer] CLEARING AGENT-SURFACE PLATE FINISHER [address] [place] [address] Imaging [facility] Start: 01-28-2024 End: 01-28-2024 Clinical Support Encounter 01/28/2024 10:15 AM EDT Clinical Support Encounter Clinical Lab [facility] [address] [place] [address] [place] [id number] Andreas Ortega MD, MPH [address] [place] [phone] Clinical Lab [facility] 1 Start: 01-06-2024 End: 01-06-2024 Patient encounter procedure 01/06/2024 3:00 PM EDT Office Visit Division of Medical Oncology [address] [place] [phone] Carol Summres MD, PhD [address] [place] [address] [place] [phone] Division of Medical Oncology Start: 12-14-2023 End: 12-14-2023 Patient encounter procedure 12/14/2023 12:30 PM EDT Office Visit Cardiology Isrrael [facility] [address] [place] [address] Cheikh Coelho MD [address] [place] [address] Cardiology Isrrael [facility] 5 Start: 11-26-2023 End: 11-25-2024 [id number] PHENOTYPE [facility] Comment on above: Expected: 11/26/2023 (Approximate), Expi res: 11/25/2024 Start: 11-26-2023 End: 11-25-2024 HUNTER SCREEN IFA [facility] Comment on above: Expected: 11/26/2023 (Approximate), Expi res: 11/25/2024 Start: 11-26-2023 End: 11-25-2024 ANTI MITOCHONDRIAL ANTIBODY [facility] Comment on above: Expected: 11/26/2023 (Approximate), Expi res: 11/25/2024 Start: 11-26-2023 End: 11-25-2024 ANTI SMOOTH MUSCLE ANTIBODY [facility] Comment on above: Expected: 11/26/2023 (Approximate), Expi res: 11/25/2024 Start: 11-26-2023 End: 11-25-2024 MONOCLONAL PROT IMMUNO, SERUM [facility] Comment on above: Expected: 11/26/2023 (Approximate), Expi res: 11/25/2024 Start: 11-26-2023 End: 11-25-2024 T-TRANSGLUTAMINASE IGG/IGA, AB [facility] Comment on above: Expected: 11/26/2023, Expires: Start: 11-08-2023 End: 11-08-2023 Telemedicine consultation with patient 11/08/2023 11:00 AM EDT Telemedicine Division of Medical Oncology [address] [place] [address] Yudelka Moralez, [employer] CLEARING AGENT-SURFACE PLATE FINISHER [address] [place] [address] Division of Medical Oncology Start: 10-28-2023 End: 10-28-2023 Patient encounter procedure 10/28/2023 1:00 PM EDT Office Visit [facility] [address] [place] [address] Kelton Cabrera Jr., MD [address] [place] [phone] General and Gastrointestinal [facility] Start: 09-08-2023 End: 09-08-2023 Patient encounter procedure 09/08/2023 10:40 AM EST Routine [facility] [address] [place] [phone] Ron Ruano, [address] [place] [id number] [facility] Start: 06-17-2023 End: 06-17-2023 Patient encounter procedure 06/17/2023 1:30 PM EST Office Visit Division of Surgical Oncology [address] [place] [address] Archie Hugo MD, PhD [address] [place] [phone] Division of Surgical Oncology Start: 06-17-2023 End: 06-17-2023 Patient encounter procedure 06/17/2023 12:20 PM EST Appointment Imaging [facility] [address] [facility] [address] [place] [address] Archie Hugo MD, PhD [address] [place] [phone] Imaging [facility] Start: 03-19-2023 Influenza vaccination [facility] Start: 03-17-2023 End: 03-17-2023 Patient encounter procedure Division of Medical Oncology Start: 03-11-2023 End: 03-11-2023 Patient encounter procedure 03/11/2023 Office Visit Surgical Oncology Archie Hugo MD, PhD [address] [place] [address] Division of Surgical Oncology Start: 03-11-2023 End: 03-11-2023 Patient encounter procedure Imaging [facility] Start: 12-22-2022 End: 12-22-2022 Patient encounter procedure 12/22/2022 Office Visit Cardiovascular Medicine Marisela Velásquez, [employer] CLEARING AGENT-SURFACE PLATE FINISHER [address] [place] [address] Cardiology [facility] 5 Start: 12-17-2022 End: 12-17-2022 Patient encounter procedure 12/17/2022 Office Visit Oncology Andreas Ortega MD, MPH [address] [place] [address] Division of Medical Oncology Start: 12-10-2022 End: 12-11-2023 CT Abdomen and Pelvis W contrast IV CT ABDOMEN/PELVIS WITH CONTRAST Imaging Routine Primary malignant neuroendocrine tumor of appendix Expected: 12/10/2022, Expires: 12/11/2023 [facility] Comment on above: Expected: 12/10/2022, Expires: Start: 12-10-2022 End: 12-11-2023 CT Chest W contrast IV CT CHEST WITH CONTRAST Imaging Routine Primary malignant neuroendocrine tumor of appendix Expected: 12/10/2022, Expires: 12/11/2023 [facility] Comment on above: Expected: 12/10/2022, Expires: Start: 12-10-2022 End: 12-10-2022 Patient encounter procedure Imaging [facility] Start: 12-07-2022 End: 06-09-2023 CT Abdomen and Pelvis W contrast IV CT ABDOMEN/PELVIS WITH CONTRAST Imaging Routine Primary malignant neuroendocrine tumor of appendix Expected: 12/07/2022, Expires: 06/09/2023 [facility] Comment on above: Expected: 12/07/2022, Expires: Start: 11-05-2022 End: 11-05-2022 Patient encounter procedure 11/05/2022 Office Visit Oncology Andreas Ortega MD, MPH [address] [facility] [address] [place] [phone] Division of Medical Oncology Start: 10-27-2022 End: 10-27-2022 Patient encounter procedure 10/27/2022 Office Visit Cardiovascular Medicine Cheikh Coelho MD [address] [place] [address] Cardiology [facility] 5 Start: 10-27-2022 End: 10-27-2022 ambulatory 10/27/2022 Telemed Clin Support Genetics Erin Stoner, [facility] [address] [phone] Division of Human Genetics Start: 10-21-2022 Subsequent hospital visit by physician 10/21/2022 Hospital Encounter Computerized Tomography Scan Yudelka Moralez APRN-SURFACE PLATE FINISHER [address] [place] [address] [facility] Start: 10-21-2022 End: 10-21-2022 Patient encounter procedure 10/21/2022 Appointment Echocardiography Yudelka Moralez APRN-SURFACE PLATE FINISHER [address] [place] [address] [facility] Start: 10-07-2022 End: 10-08-2023 CT Chest W contrast IV CT CHEST WITH CONTRAST Imaging Routine Carcinoid syndrome SOB (shortness of breath) Tachycardia Primary malignant neuroendocrine tumor of appendix Expected: 10/07/2022, Expires: 10/08/2023 [facility] Comment on above: Expected: 10/07/2022, Expires: 4 Start: 10-07-2022 End: 10-08-2023 CT Neck W contrast IV CT NECK WITH CONTRAST Imaging Routine Primary malignant neuroendocrine tumor of appendix Expected: 10/07/2022, Expires: 10/08/2023 [facility] Comment on above: Expected: 10/07/2022, Expires: 4 Start: 08-26-2022 End: 08-26-2022 Telemedicine consultation with patient 08/26/2022 Telemedicine Oncology Andreas Ortega MD, MPH [address] [facility] [address] [place] [address] Division of Medical Oncology Start: 08-19-2022 End: 08-19-2022 Patient encounter procedure Imaging [facility] Start: 07-08-2022 End: 07-08-2023 Complete blood count with white cell differential, automated CBC, EDIF, PLATELET Lab Routine Primary malignant neuroendocrine tumor of appendix Expected: 07/08/2022, Expires: 07/08/2023 [facility] Comment on above: Expected: 07/08/2022, Expires: 3 Start: 07-08-2022 End: 07-08-2023 Comprehensive metabolic 2000 panel - Serum or Plasma COMPREHENSIVE METABOLIC PANEL Lab Routine Primary malignant neuroendocrine tumor of appendix Expected: 07/08/2022, Expires: 07/08/2023 [facility] Comment on above: Expected: 07/08/2022, Expires: 3 Start: 07-08-2022 End: 07-08-2023 CT Abdomen and Pelvis WO and W contrast IV CT ABDOMEN/PELVIS WITH AND WITHOUT CONTRAST Imaging Routine Primary malignant neuroendocrine tumor of appendix Expected: 07/08/2022, Expires: 07/08/2023 [facility] Comment on above: Expected: 07/08/2022, Expires: 3 Start: 07-08-2022 End: 07-08-2023 Lactate dehydrogenase [Enzymatic activity/volume] in Serum or Plasma LACTATE DEHYDROGENASE Lab Routine Primary malignant neuroendocrine tumor of appendix Expected: 07/08/2022, Expires: 07/08/2023 [facility] Comment on above: Expected: 07/08/2022, Expires: 3 Start: 07-08-2022 End: 07-08-2023 PT Skull base to mid-thigh NUC PET NEUROENDOCRINE Imaging Routine Primary malignant neuroendocrine tumor of appendix Expected: 07/08/2022, Expires: 07/08/2023 [facility] Comment on above: Expected: 07/08/2022, Expires: 3 Start: 07-08-2022 End: 07-08-2022 Patient encounter procedure 07/08/2022 Office Visit Oncology Andreas Ortega MD, MPH [address] [place] [address] Division of Medical Oncology Start: 07-06-2022 End: 07-06-2022 Telemedicine consultation with patient 07/06/2022 Telemedicine Surgical Oncology Raina Gomes APRN-SURFACE PLATE FINISHER [address] [place] [address] [facility] Start: 06-09-2022 End: 06-09-2022 Patient encounter procedure 06/09/2022 Office Visit Surgical Oncology Raina Gomes APRN-CNP [address] [place] [address] Division of Surgical Oncology Start: 04-21-2022 End: 04-21-2022 Evaluation and management of inpatient 04/21/2022 Surgery Multispecialty Archie Hugo MD, PhD [address] [place] [phone] COLECTOMY PARTIAL LAPAROSCOPIC CCCT [facility] Comment on above: COLECTOMY PARTIAL LAPAROSCOPIC Start: 04-21-2022 End: 04-21-2022 Laparoscopy colectomy partial w/anastomosis COLECTOMY PARTIAL LAPAROSCOPIC Primary malignant neuroendocrine tumor of appendix 04/21/2022 7:15 AM EDT [facility] Start: 04-21-2022 Evaluation and management of inpatient 04/21/2022 Hospital Encounter Multispecialty Archie Hugo MD, PhD [address] [place] [address] Primary malignant neuroendocrine tumor of appendix [facility] Comment on above: Primary malignant neuroendocrine tumor o f appendix Start: 03-19-2022 End: 03-19-2023 Colonoscopy flx dx w/collj spec when pfrmd DIAGNOSTIC COLONOSCOPY GI/Bronch STAT Primary malignant neuroendocrine tumor of appendix Expected: 03/19/2022, Expires: 03/19/2023 [facility] Comment on above: Expected: 03/19/2022, Expires: 3 Start: 03-19-2022 Influenza vaccination INFLUENZA VACCINE (#1) [facility] Start: 03-19-2022 End: 03-19-2023 TYPE AND SCREEN - PREADMISSION TYPE AND SCREEN - PREADMISSION Blood Bank Routine Primary malignant neuroendocrine tumor of appendix Expected: 03/19/2022, Expires: 03/19/2023 [facility] Work Phone: Comment on above: Expected: 03/19/2022, Expires: 3 Start: 07-10-2021 COVID-19 VACCINE (2 - Pfizer risk series) COVID-19 VACCINE (2 - Pfizer risk series) [facility] Start: 07-10-2021 COVID-19 VACCINE (2 - Pfizer series) COVID-19 VACCINE (2 - Pfizer series) [facility] Start: 08-14-2020 Tetanus vaccination TETANUS [facility] Start: 2018 Screening for malignant neoplasm of cervix CERVICAL CANCER SCREENING DISCUSSION [facility] Start: 2016 Third diphtheria, tetanus and acellular pertussis (DTaP) vaccination TDAP (ADULT) [facility] Start: 2016 Zoster vaccine hzv live for subcutaneous use ZOSTER (SHINGLES) VACCINE (1 of 2) [facility] Start: 2015 Tetanus vaccination TETANUS [facility] Start: 2013 Screening for Chlamydia trachomatis CHLAMYDIA SCREEN [facility] Start: 2012 HIV screening HIV SCREENING DISCUSSION [facility] Start: 02-11-2011 Vaccination for human papillomavirus HPV VACCINE ADOL (2 - 2-dose series) [facility] Start: 09-11-2010 Vaccination for human papillomavirus HPV VACCINE ADOL (2 - Risk 3-dose series) [facility] Start: 2008 Vaccination for human papillomavirus HPV VACCINE ADOL (1 - 2-dose series) [facility] Start: 2003 PNEUMOCOCCAL VACCINE SERIES (1 - PCV) PNEUMOCOCCAL VACCINE SERIES (1 - PCV) [facility] Start: 2003 PNEUMOCOCCAL VACCINE SERIES (1 of 2 - PCV) PNEUMOCOCCAL VACCINE SERIES (1 of 2 - PCV) [facility] Start: 1997 GONORRHEA SCREEN GONORRHEA SCREEN [facility] Start: 1997 Hepatitis C antibody, confirmatory test HEPATITIS C VIRUS SCREENING [facility] Start: 1997 Hepatitis C screening HEPATITIS C VIRUS SCREENING [facility] Start: 1997 Screening for Chlamydia trachomatis GONORRHEA SCREEN [facility] CHROMOGRANIN A CHROMOGRANIN A L ab Routine Primary malignant neuroendocrine tumor of appendix 03/11/2023 11:44 AM EDT [facility] Work Phone: End: 03-31-2022 CT Abdomen and Pelvis W contrast IV [facility] Work Phone: Comment on above: 1 Occurrences starting 03/31/2022 until 03/31/2022 End: 08-14-2022 CT Abdomen and Pelvis WO and W contrast IV [facility] Work Phone: Comment on above: 1 Occurrences starting 08/14/2022 until 08/14/2022 End: 11-06-2023 CT Abdomen and Pelvis WO and W contrast IV [facility] Comment on above: 1 Occurrences starting 11/06/2023 until 11/06/2023 End: 02-07-2024 CT Abdomen and Pelvis WO and W contrast IV [facility] Comment on above: 1 Occurrences starting 02/07/2024 until 02/07/2024 Ecg routine ecg w/le ast 12 lds trcg only w/o i&r IA ECG, TRACING ONLY IA - OFFICE PERFORMED Routine Primary malignant neuroendocrine tumor of appendix Ordered: 03/19/2022 [facility] Comment on above: Ordered: 03/19/2022 Echocardiography ECHOCARDIOGRAM Echocardiography Routine Carcinoid syndrome SOB (shortness of breath) Tachycardia Ordered: 10/07/2022 [facility] Comment on above: Ordered: 10/07/2022 Laparoscopy colectom y partial w/anastomosis COLECTOMY PARTIAL LAPAROSCOPIC Primary malignant neuroendocrine tumor of appendix [facility] End: 03-09-2023 Magnetic resonance imaging of abdomen and pelvis with contrast MRI ABDOMEN/PELVIS WITHOUT AND WITH CONTRAST Imaging Routine Primary malignant neuroendocrine tumor of appendix 1 Occurrences starting 03/09/2023 until 03/09/2023 [facility] Comment on above: 1 Occurrences starting 03/09/2023 until 03/09/2023 Removal of kike IA STAPLE REM OVAL IA - OFFICE PERFORMED Routine Primary malignant neuroendocrine tumor of appendix Ordered: 06/09/2022 [facility] Comment on above: Ordered: 06/09/2022 SURG PATH REQUEST [facility] Comment on above: Release Upon Ordering for 1 Occurrences starting 05/22/2022, 1 completed TRANSIENT ELASTOGRAPHY TRANSIENT ELASTOGRAPHY GI/Bronch Routine Elevated liver enzymes Ordered: 11/26/2023 [facility] Comment on above: Ordered: 11/26/2023 Immunizations Immunization Date Immunization Notes Care Provider Chhaya dhillon 06-19-2021 SARS-CoV-2 (COVID-19 ) mRNA BNT-162b2 radha [facility] Comment on above: Result Comment: 2023: TPVALL 04-28-2021 influenza virus vacc ine, unspecified formulation Raina Gomes APRN-SURFACE PLATE FINISHER Work Phone: [facility] Comment on above: Result Comment: 2023: NULL 08-28-2020 SARS-CoV-2 (COVID-19 ) mRNA-1273 vaccine Cortez Sarmini [facility] 07-31-2020 SARS-CoV-2 (COVID-19 ) mRNA-1273 vaccine Cortez Sarmini [facility] 08-14-2010 HPV, unspecified formulation Cortez Sarmini [facility] 08-14-2010 meningococcal ACWY vaccine, unspecified formulation Cortez Sarmini [facility] 08-14-2010 tetanus toxoid, redu shaheed diphtheria toxoid, and acellular pertussis vaccine, adsorbed Cortez Sarmini [facility] 04-03-2002 measles, mumps and rubella virus vaccine Cortez Sarmini [facility] 09-20-2000 DTaP, unspecified formulation Cortez Sarmini [facility] 09-20-2000 hepatitis B vaccine, pediatric or pediatric/adolescent dosage Cortez Sarmini [facility] 09-20-2000 Hib, unspecified formulation Cortez Sarmini [facility] 09-20-2000 measles, mumps and rubella virus vaccine Cortez Sarmini [facility] 09-20-2000 poliovirus vaccine, unspecified formulation Cortez Sarmini [facility] 1997 DTaP, unspecified formulation Cortez Sarmini [facility] 1997 Hib, unspecified formulation Cortez Sarmini [facility] 1997 poliovirus vaccine, unspecified formulation Cortez Sarmini [facility] 1997 DTaP, unspecified formulation Cortez Sarmini [facility] 1997 hepatitis B vaccine, pediatric or pediatric/adolescent dosage Cortez Sarmini [facility] 1997 Hib, unspecified formulation Cortez Sarmini [facility] 1997 poliovirus vaccine, unspecified formulation Cortez Sarmini [facility] 1997 hepatitis B vaccine, pediatric or pediatric/adolescent dosage Cortez Sarmini [facility] Payers Date Payer Category Payer Self-pay [id number] 2022 Unknown [id number] 2021 Managed Care HMO (unspecified) [employer] HMO PAR[employer] HMO [id number] 2021-Present [address] [place] [address] HMO [id number] 2021 Unknown [employer] N[employer]IDA [employer] PREFERRED PPO [id number] 2021-Present [phone] [place] [address] [facility] [id number] 1997 Unknown [id number] 2.16.840.1.769442.3.579.2 .593 1997 Unknown [id number] 2.16.840.1.640105.3.579.2 .593 1997 Unknown [id number] 2.16.840.1.539017.3.579.2 .593 1997 Unknown [id number] 2.16.840.1.883992.3.579.2 .593 1997 Unknown [id number] 2.16.840.1.103481.3.579.2 .593 1997 Unknown [id number] 2.16.840.1.530856.3.579.2 .593 1997 Unknown [id number] 2.16.840.1.744516.3.579.2 .593 1997 Unknown [id number] 2.16.840.1.132596.3.579.2 .593 1997 Unknown [id number] 2.16.840.1.545366.3.579.2 .593 1997 Unknown [id number] 2.16.840.1.888397.3.579.2 .593 1997 Unknown [id number] 2.16.840.1.438201.3.579.2 .593 1997 Unknown [id number] 2.16.840.1.212801.3.579.2 .593 1997 Unknown [id number] 2.16.840.1.729216.3.579.2 .593 1997 Unknown [id number] 2.16.840.1.543083.3.579.2 .593 1997 Unknown [id number] 2.16.840.1.657573.3.579.2 .593 1997 Unknown [id number] 2.16.840.1.489384.3.579.2 .593 1997 Unknown [id number] 2.16.840.1.014312.3.579.2 .593 1997 Unknown [id number] 2.16.840.1.783845.3.579.2 .1259 1997 Unknown [id number] 2.16.840.1.862124.3.579.2 .1259 1997 Unknown [id number] 2.16.840.1.225984.3.579.2 .1259 1997 Unknown [id number] 2.16.840.1.177667.3.579.2 .1259 1997 Unknown [id number] 2.16.840.1.418727.3.579.2 .1259 1997 Unknown [id number] 2.16.840.1.545193.3.579.2 .1259 1997 Unknown [id number] 2.16.840.1.038642.3.579.2 .1259 1997 Unknown [id number] 2.16.840.1.632075.3.579.2 .1259 1997 Unknown [id number] 2.16.840.1.015817.3.579.2 .1259 1997 Unknown [id number] 2.16.840.1.588420.3.579.2 .727 1997 Unknown [id number] 2.16.840.1.205946.3.579.2 .594 1997 Unknown [id number] 2.16.840.1.825713.3.579.2 .594 1997 Unknown [id number] 2.16.840.1.940399.3.579.2 .594 1997 Unknown [id number] 2.16.840.1.227040.3.579.2 .594 1997 Unknown [id number] 2.16.840.1.208187.3.579.2 .594 1997 Unknown [id number] 2.16.840.1.872408.3.579.2 .594 1997 Unknown [id number] 2.16.840.1.067723.3.579.2 .594 1997 Unknown [id number] 2.16.840.1.572952.3.579.2 .594 1997 Unknown [id number] 2.16.840.1.962754.3.579.2 .594 1997 Unknown [id number] 2.16.840.1.186804.3.579.2 .594 1997 Unknown [id number] 2.840.1.357597.3.579.2 .594 1997 Unknown [id number] 2.16840.1.077141.3.579.2 .594 1997 Unknown [id number] 2.16.840.1.431958.3.579.2 .1286 1997 Unknown [id number] 2.16840.1.616586.3.579.2 .1286 1997 Unknown [id number] 2.16840.1.646831.3.579.2 .1286 1959 Unknown [id number] Unknown [id number] 2.16840.1.949819.19 Unknown [id number] 2.16840.1.205475.3.579.2 .531 Unknown [id number] 2.16840.1.996979.3.579.2 .531 Social History Date Type Detail Facility Unknown if ever smoked [facility] Other Start: 03-11-2023 End: 11-08-2023 Sex Assigned At [facility] Tobacco smoking stat us NHIS Tobacco smoking consumption unknown [facility] Work Phone: Start: 1995 Sex Assigned At Not on file [facility] Start: 03-19-2022 End: 04-14-2022 Tobacco smoking status NHIS Never smoked tobacco [facility] Start: 03-31-2022 End: 02-07-2024 Alcohol intake Ex-drinker (finding) [facility] Start: 03-19-2022 History SDOH Alcohol Comment last alchohol 2019; mixed drink rarely [facility] Start: 04-14-2022 Tobacco use and exposure Smokeless tobacco non-user [facility] Start: 05-12-2022 End: 08-19-2022 Exposure to SARS-CoV-2 (event) Not sure [facility] Start: 06-28-2022 End: 07-08-2022 Exposure to SARS-CoV-2 (event) Unable to assess [facility] Start: 03-11-2023 End: 11-08-2023 History of Social function [facility] Adolescent depressio n screening assessment 1 [facility] Start: 01-12-2023 [facility] Start: 1995 Sex Assigned At Female [facility] Start: 01-25-2023 Gender identity Identifies as female gender (finding) [facility] Start: 01-25-2023 Sexual orientation Heterosexual (finding) [facility] Healthcare Goals Date Patient Goal Desired Activity /State Personal health goal Functional Status Date Assessment Result Facility 02-07-2024 Functional Status N/A [facility] Clinical Notes 12-22-2021 to 04-12-2024 Telephone Encounter - Any Medrano RN - 04/12/2024 11:43 AM EDTTelephone Encounter - Any Medrano RN - 04/12/2024 11:43 AM EDTTelephone Encounter - Pinky Morales RN - 04/11/2024 4:31 PM EDT Note Date & Type Note Facility 04-12-2024 Telephone encounter Note 04/12/2024 11:43 AM Patient sent a my chart message asking this per Dr Ortega: Did she try cholestyramine for the diarrhea? RN also let her know via my chart about her scan. --Any Medrano RN [facility] 04-12-2024 Miscellaneous Notes 04/12/2024 11:43 AM Patient sent a my chart message asking this per Dr Ortega: Did she try cholestyramine for the diarrhea? RN also let her know via my chart about her scan. --Any Medrano RN Call placed to patient - states she has had an increased abdominal pain and nausea and fatigue. She's had an overall general feeling of malaise. More frequent diarrhea - at least 15 times per day How is she staying hydrated? Propel [place] with electrolytes Any weight loss? No Discussed imodium - cholesteramine light. States imodium causes increased abdominal pain. She was disappointed about the PET scan needing to be rescheduled and wondered if she could have CT scans in the meantime? Pain - Location RUQ - midgastric to RUQ radiates. Frequency intermittent - but everyday a few times per day Rating: when it comes on it's 6-7/10 Aggravating: eating Alleviating: only thing is oxycodone Nausea is really bad and it's painful to have bowel movements Any blood in stool? Yes dark blood in stools just a couple instances Patient phoned in stating that she was scheduled for her PET scan tomorrow however she had her Octreotide injection 8 days ago so it was rescheduled to 04/25/24. She c/o abdominal [id number] RUQ, nausea, no vomiting or fevers, occasional chills, and more frequent diarrhea outside of her normal daily diarrhea. She is inquiring if would order a CT of her abdomen. She is requesting a call back. documented in this encounter [facility] 04-11-2024 Telephone encounter Note Call placed to patient - states she has had an increased abdominal pain and nausea and fatigue. She's had an overall general feeling of malaise. More frequent diarrhea - at least 15 times per day How is she staying hydrated? Propel [place] with electrolytes Any weight loss? No Discussed imodium - cholesteramine light. States imodium causes increased abdominal pain. She was disappointed about the PET scan needing to be rescheduled and wondered if she could have CT scans in the meantime? Pain - Location RUQ - midgastric to RUQ radiates. Frequency intermittent - but everyday a few times per day Rating: when it comes on it's 6-7/10 Aggravating: eating Alleviating: only thing is oxycodone Nausea is really bad and it's painful to have bowel movements Any blood in stool? Yes dark blood in stools just a couple instances [facility] 04-11-2024 Telephone encounter Note Patient phoned in stating that she was scheduled for her PET scan tomorrow however she had her Octreotide injection 8 days ago so it was rescheduled to 04/25/24. She c/o abdominal [id number] RUQ, nausea, no vomiting or fevers, occasional chills, and more frequent diarrhea outside of her normal daily diarrhea. She is inquiring if would order a CT of her abdomen. She is requesting a call back. [facility] 03-17-2024 Note Addended by: Anna MORALEZ on: 03/17/2024 04:17 PM Modules accepted: Orders [facility] 03-17-2024 Note Addended by: Anna MORALEZ on: 03/17/2024 04:17 PM Modules accepted: Orders [facility] 03-17-2024 Telephone encounter Note Refilled [facility] 03-17-2024 Miscellaneous Notes Addended by: YUDELKA MORALEZ on: 03/17/2024 04:17 PM Modules accepted: Orders Refilled Call placed to patient - she was rescheduled for April 04. They asked to ask us if they have to have an order sent to their clinic? [facility] in [place]. She didn't ever peanut picker the prescription for her short acting octreotide. She'd be happy to pick that up to take the short acting shots prior to procedure. Called to speak to patient regarding her colonoscopy but no answer at this time. LVM to have patient call us back at their earliest convenience Patient calling in stating she has a colonoscopy scheduled tomorrow. The surgery center where she is getting it done does not have the Octreotide she should take. Wanting to know if she should reschedule. Requesting a response as soon as possible as she will need to start prep soon. [phone] documented in this encounter [facility] 03-17-2024 Telephone encounter Note Call placed to patient - she was rescheduled for April 04. They asked to ask us if they have to have an order sent to their clinic? [facility] center in [place]. She didn't ever peanut picker the prescription for her short acting octreotide. She'd be happy to pick that up to take the short acting shots prior to procedure. [facility] 03-13-2024 Telephone encounter Note Called to speak to patient regarding her colonoscopy but no answer at this time. LVM to have patient call us back at their earliest convenience [facility] 03-13-2024 Telephone encounter Note Patient calling in stating she has a colonoscopy scheduled tomorrow. The surgery center where she is getting it done does not have the Octreotide she should take. Wanting to know if she should reschedule. Requesting a response as soon as possible as she will need to start prep soon. [phone] [facility] 02-07-2024 Evaluation + Plan note Future Scheduled TestsCeliac Disease Comprehensive 02/07/24Celiac Disease Comprehensive 02/07/24 [facility] 01-06-2024 History of Present illness Narrative Images from the original note were not included. Referring Physician: Dr. Andreas Ortega Attending Physician: Dr. 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 female with a past medical history of GERD and mood disorder. RLQ pain. She underwent an appendectomy at [facility] 02/03/22. 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 The LAMN was located in the distal end with surface disruption. It measures 3.5 cm and penetrates through the appendiceal wall and is present at the serosal surface. The well differentiated neuroendocrine tumor was in the proximal half and measures 2.2 cm. It invades into subserosa and mesoappendiceal adipose tissue, with focal lymphovascular invasion and perineural invasion. The resection margin was focally positive for well differentiated neuroendocrine tumor but negative for LAMN. She underwent an ex lap with Dr. Archie Hugo on 04/21/22 during which a pool of mucin was found in the pelvis. Pathology was consistent with acellular mucin. A peritoneal biopsy was also completed and was consistent with fibrovascular connective tissue with acellular mucin. , reactive mesothelium and histiocytic aggregates. She went on to undergo CRS/HIPEC 05/22/[address] Hugo, PCI was 6, CC 0. Most recent MRI obtained 03/11/23 was [facility]. Pathology showed peritoneal implants and mesenteric deposits in right hemicolectomy with foci of acellular mucin without identifiable tumor cells. 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 The nodule in the peritoneal implant #4 shows tumor with diffuse expression for cytokeratin AE1/AE3 and Chromogranin supporting the above diagnosis of well-differentiated neuroendocrine tumor. The tumor shows rare cells with Ki67 expression with a proliferative index <1%, consistent with WHO grade 1. In addition one of the regional lymph nodes shows focus of metastatic neuroendocrine tumor. These findings would be consistent with pathology stage pN1/M1b. She has followed with Dr. Ortega at [facility]. She began octreotide LAR 09/09/22. This was then held 11/2022 for family planning purposes. She gave approximately 3 months ago. She did have to undergo a cholecystectomy during her second trimester on 06/18/23. Pathology was consistent with chronic cholecystitis and cholelithiasis. cor She is following with gastroenterology for her elevated mildly elevated LFTs. She resumed octreotide last month. She reports fatigue and poor appetite. She c/o post-prandial nausea which started a few weeks ago. She has had diarrhea with up to 10 BMs/day. She reports lower pelvic cramping pain/pressure and RUQ intermittent pain. She c/o SOB associated with flushing. No CP, fever/chills, or edema. She does have intermittent neuropathy in her fingers and toes and feels a squeezing discomfort in her lower arms. Past Medical History: Past Medical History: Diagnosis Date Anxiety Arthritis Borderline personality disorder Clostridioides difficile infection 05/2022 Depression GERD (gastroesophageal reflux disease) History of cancer Past Surgical History: Past Surgical History: Procedure Laterality Date SECTION 2023 HYPERTHERMIA BY INTRACAVITARY PROBE (HIPEC) N/A 05/22/2022 Laterality: N/A; Surgeon: Archie Hugo MD, PhD; Location: [facility] MAIN OR COLECTOMY PARTIAL OPEN Right 05/22/2022 Laterality: Right; Surgeon: Archie Hugo MD, PhD; Location: [facility] MAIN OR DEBULKING INTRA-ABDOMINAL/PELVIC/RETROPERIT FLEMING W/ OMENECTOMY & PELVIC PARA-AORTIC LYMPHADENECTOMY N/A 05/22/2022 Laterality: N/A; Surgeon: Archie Hugo MD, PhD; Location: [facility] MAIN OR COLECTOMY PARTIAL LAPAROSCOPIC N/A 04/21/2022 Laterality: N/A; Surgeon: Archie Hugo MD, PhD; Location: [facility] MAIN OR COLONOSCOPY DIAGNOSTIC 04/08/2022 APPENDECTOMY LAPAROSCOPIC 02/03/2022 [place], [place] Medications: Current Outpatient Medications Medication Sig acetaminophen 500 MG tablet Take 1 tablet by mouth every 6 hours as needed for Mild Pain. FLUoxetine 20 MG capsule Take 2 capsules by mouth daily. lamoTRIgine 100 MG tablet Take 0.5 tablets by mouth daily. Loperamide 2 MG capsule Take 1 capsule by mouth as needed for Diarrhea. 2 stat then 1 cap after each loose stool Octreotide acetate (SandoSTATIN LAR [place]) 20 MG Kit injection Inject 20 mg intramuscularly every 28 days. oxyCODONE 5 MG tablet Take 1 tablet by mouth every 8 hours as needed for Severe Pain for up to 7 days. Dicyclomine 10 MG capsule Take 1 capsule by mouth 4 times daily as needed for Abdominal Spasms for up to 7 days. (Patient not taking: Reported on 01/06/2024) Octreotide Acetate 100 MCG/ML Solution Prefilled Syringe prefilled syringe Inject 1 mL under the skin 3 times daily as needed for Other (carcinoid syndrome). (Patient not taking: Reported on 01/06/2024) Pancrelipase, Vgt-Erew-Muqb, (Creon) [id number] units Cap DR Particles Please take one cap with each meal, and one cap with each snack. (Patient not taking: Reported on 01/06/2024) Allergies: Allergies Allergen Reactions Flagyl [Metronidazole] Gabapentin Nausea Only Family History: Family History Problem Relation Age of Onset Myocardial Infarction Maternal Grandmother 59 Lung Cancer Maternal Grandfather Cancer Maternal Aunt THYROID Cancer Cousin Neuroendocrine cancer Leukemia Other Leukemia Other Breast Cancer Other Cancer Other Uterine Breast Cancer Maternal Aunt Invasive ductal carcinoma stage 4 Social History: Social History Socioeconomic History Marital status: Tobacco Use Smoking status: Never Smokeless tobacco: Never Vaping Use Vaping status: Never Used Substance and Sexual Activity Alcohol use: Not Currently Comment: last alchohol 2019; mixed drink rarely Drug use: Never Sexual activity: Yes Partners: Male Other Topics Concern Occupational Exposure No Hobby Hazards No Social Determinants of Health Financial Resource Strain: Medium Risk (02/18/2022) Received from [facility] Overall Financial Resource Strain (CARDIA) Difficulty of Paying Living Expenses: Somewhat hard Food Insecurity: No Food Insecurity (07/07/2023) Received from [facility] Hunger Screening Within the past 12 months we worried whether our food would run out before we got money to buy more.: Never True Within the past 12 months the food we bought just didn't last and we didn't have money to get more.: Never True Transportation Needs: No Transportation Needs (02/18/2022) Received from [facility] PRAPARE - Transportation Lack of Transportation (Medical): No Lack of Transportation (Non-Medical): No Physical Activity: Insufficiently Active (02/18/2022) Received from [facility] Exercise Vital Sign Days of Exercise per Week: 3 days Minutes of Exercise per Session: 40 min Stress: Stress Concern Present (02/18/2022) Received from [facility] [place] [facility] - Occupational Stress Questionnaire Feeling of Stress : Very much Social Connections: Unknown (02/18/2022) Received from [facility] Social Connection and Isolation Panel [NHANES] Frequency of Communication with Friends and Family: Twice a week Frequency of Social Gatherings with Friends and Family: Patient declined Attends Mosque Services: Never Active Member of Clubs or Organizations: No Attends Club or Organization Meetings: Patient declined Marital Status: REVIEW OF SYSTEMS: General: No fevers, chills, sweats or recent change in weight +flushing Skin: No changes in hair or nails, no pruritis, rashes, lesions or wounds HEENT: No visual changes, no blurred/double vision, no ear pain or drainage, no decreased auditory acuity, no sinus pain, pressure, drainage, no epistaxis, no dysphagia or odynophagia, no dental pain Respiratory: No cough, + intermittent shortness or breath, no wheezing Cardiovascular: No chest pain, palpitations, leg pain or cramping, edema or orthopnea. GI: +post-prandial nausea, + diarrhea, no constipation, + BLQ abdominal cramping pain/pressure. : No urinary frequency, hesitancy, urgency, hematuria, kidney stones, nocturia or incontinence Musculoskeletal: No back pain, joint pain or edema. Neurologic: No dizziness, syncope, headache, weakness + intermittent numbness in bilateral hands/feet, no anxiety or depression Physical Exam: BP 125/77 Pulse 65 Temp 97.9 F (36.6 C) (Oral) Resp 16 Ht 1.55 m (5' 1.02 ) Wt 71 kg (156 lb 9.6 oz) SpO2 99% BMI 29.57 kg/m Smoking Status Never APPEARANCE: Alert and oriented, well appearing, nontoxic, in no acute distress. EYES: Nonicteric. HEENT: Head atraumatic, normocephalic. Oral cavity with moist mucous membranes, no lesions or exudates. NECK: Without cervical, supraclavicular or infraclavicular lymphadenopathy. RESPIRATORY: Lungs are clear to auscultation bilaterally. CARDIOVASCULAR: Heart rate and rhythm regular. ABDOMEN: Soft, nontender, nondistended, without palpable masses. Normoactive bowel sounds. No hepatosplenomegaly appreciated. Surgical incision well healed without evidence of incisional hernia. LYMPHATICS: No axillary or inguinal lymphadenopathy appreciated. MUSCULOSKELETAL: Extremities warm, well perfused, without edema. Positive distal pulses. NEUROLOGIC: No focal deficits. SKIN: Without jaundice; pink, warm and dry; good skin turgor. Laboratory Data: Lab Results Component Value Date WBC 7.97 11/26/2023 MCV 88.9 11/26/2023 Lab Results Component Value Date SODIUM 141 11/26/2023 POTASSIUM 3.8 11/26/2023 POTASSIUM 3.6 05/22/2022 CHLORIDE 102 11/26/2023 CO2 26 11/26/2023 BUN 7 11/26/2023 Lab Results Component Value Date ALT 68 (H) 11/26/2023 AST 42 (H) 11/26/2023 Lab Results Component Value Date BILITOTAL 0.5 11/26/2023 Lab Results Component Value Date CHROMOGRANA 30 11/06/2023 Radiology: 11/06/23 CT Abdomen/Pelvis: 1. Status post right hemicolectomy without evidence of recurrent disease at the surgical site. 2. New nonspecific 3 mm nodule versus lymph node at the anterior right abdomen. Other nonspecific small nodules versus lymph nodes in the anterior abdomen are stable. Attention on follow-up. 3. Mild hepatomegaly. Other findings as detailed above. Pathology: 05/22/22: Pathologic Diagnosis A. Falciform ligament, excision: Benign [...] would be consistent with pathology stage pN1/M1b. 02/04/22: Assessment/Plan: Please refer to Dr. Summers' portion of the note associated with this visit. ATTENDING ADDENDUM I have personally seen and examined the patient today. I discussed the plan of care with Jayne Singh CNP, who prepared today s progress note; and I formulated the medical decision making, as above. For today s visit, I reviewed the nursing flowchart, list of medications and pertinent laboratory and diagnostic tests. I agree with the above progress note and edited this note entirely and it reflects the details of my interview, exam, and medical decision making. Briefly, Ms Swift is a 28 y.o. female who underwent an appendectomy at [facility] 02/03/22. 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 The LAMN was located in the distal end with surface disruption. It measures 3.5 cm and penetrates through the appendiceal wall and is present at the serosal surface. The well differentiated neuroendocrine tumor was in the proximal half and measures 2.2 cm. It invades into subserosa and mesoappendiceal adipose tissue, with focal lymphovascular invasion and perineural invasion. The resection margin was focally positive for well differentiated neuroendocrine tumor but negative for LAMN. She underwent an ex lap with Dr. Archie Hugo on 04/21/22 during which a pool of mucin was found in the pelvis. Pathology was consistent with acellular mucin. A peritoneal biopsy was also completed and was consistent with fibrovascular connective tissue with acellular mucin, reactive mesothelium and histiocytic aggregates. She went on to undergo CRS/HIPEC 05/22/[address] Hugo, PCI was 6, CC 0. Pathology showed peritoneal implants and mesenteric deposits in right hemicolectomy with foci of acellular mucin without identifiable tumor cells. 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 The nodule in the peritoneal implant #4 shows tumor with diffuse expression for cytokeratin AE1/AE3 and Chromogranin supporting the above diagnosis of well-differentiated neuroendocrine tumor. The tumor shows rare cells with Ki67 expression with a proliferative index <1%, consistent with WHO grade 1. In addition one of the regional lymph nodes shows focus of metastatic neuroendocrine tumor. These findings would be consistent with pathology stage pN1/M1b. She has followed with Dr. Ortega at [facility] for her NET. She began octreotide LAR 09/09/22. Overall she is doing well. Would continue to follow for 10 years for her LAMN, with annual imaging for 4-5 years then biannually therafter. She is getting regular scans with Dr Ortega so will not schedule independently from that. I personally reviewed her most recent imaging which does not show any evidence of mucin collections in her peritoneal cavity. I answered all of her questions to her satisfaction. Carol Summers MD, PhD Assembler Product Division of Medical Oncology Division of Gynecologic Oncology documented in this encounter [facility] 01-06-2024 Instructions Latesha Steen RN - 01/06/2024 3:00 PM EDT You will return to clinic: 1 year To see provider: Dr Summers documented in this encounter [facility] 11-26-2023 History of Present illness Narrative This nurse verified pts name and . Subjective History of Present Illness: Chief Complaint Patient presents with New Patient Zainab Swift is a 28 y.o. female who presents to the [facility] Gastroenterology, Hepatology, and Nutrition Clinic today [...] PROBE (HIPEC) N/A 05/22/2022 Laterality: N/A; Surgeon: Archie Hugo MD, PhD; Location: [facility] MAIN OR COLECTOMY PARTIAL OPEN Right 05/22/2022 Laterality: Right; Surgeon: Archie Hugo MD, PhD; Location: [facility] MAIN OR DEBULKING INTRA-ABDOMINAL/PELVIC/RETROPERIT FLEMING W/ OMENECTOMY & PELVIC PARA-AORTIC LYMPHADENECTOMY N/A 05/22/2022 Laterality: N/A; Surgeon: Archie Hugo MD, PhD; Location: [facility] MAIN OR COLECTOMY PARTIAL LAPAROSCOPIC N/A 04/21/2022 Laterality: N/A; Surgeon: Archie Hugo MD, PhD; Location: [facility] MAIN OR COLONOSCOPY DIAGNOSTIC 04/08/2022 APPENDECTOMY LAPAROSCOPIC 02/03/2022 [place], [place] Current Outpatient Medications Medication Sig acetaminophen [...] as needed for Other (carcinoid syndrome). Pancrelipase, Nwl-Mvbl-Xqlf, (Creon) [id number] units Cap DR Particles Please take one [...] enzymes - ALPHA 1 ANTITRYPSIN; Future - [id number] PHENOTYPE; Future - HUNTER SCREEN IFA; Future [...] ELASTOGRAPHY documented in this encounter [facility] 11-26-2023 Instructions MAMTA Dee - 11/26/2023 9:30 AM EDT Labs today to evaluate for causes of liver enzyme elevation Fibroscan ordered to evaluate your liver for fibrosis, steatosis Follow up in 3 months - video documented in this encounter [facility] 08-24-2023 History of Present illness Narrative [...] nursing note reviewed. Exam conducted with a display director present. Vitals: Estimated body mass index is [...] Ron Ruano DO documented in this encounter [facility] 12-10-2022 History of Present illness Narrative Chief Complaint: Chief Complaint Patient presents with Follow-up HPI: Zainab Swift is a 27 y.o. female who presents to [facility] for post-operative [...] (Patient not taking: Reported on 07/06/2022) Pancrelipase, Mwp-Ndgn-Ocrj, (Creon) [id number] units Cap DR Particles Take two caps [...] labs reviewed with MAMTA Wilcox and Dr. Hugo, and the plan was developed collaboratively. 1. Follow up with medical oncology as scheduled. 2. CT scans and f/u with Dr. Hugo in 3 months. Will call with any questions, concerns, or change in clinical status. MAMTA Villagran Chief Complaint: Chief Complaint Patient presents with Follow-up HPI: Zainab Swift is a 27 y.o. female who presents to [facility] for post-operative [...] (Patient not taking: Reported on 07/06/2022) Pancrelipase, Zxq-Kkwm-Rvpq, (Creon) [id number] units Cap DR Particles Take two caps [...] Radiology: CT abd/pelvis 12/10/2022- Reviewed by Dr. Hugo results pending. Assessment: Zainab Swift is a [...] available imaging and labs reviewed with Dr. Hugo, and the plan was developed collaboratively. 1. Follow up with medical oncology as scheduled. 2. CT scans and f/u with Dr. Hugo in 3 months. Orders Placed This Encounter CT ABDOMEN/PELVIS WITH CONTRAST CT CHEST WITH CONTRAST Will call with any questions, concerns, or change in clinical status. MAMTA Leal Attending Physician Note I interviewed and examined this patient with the DRUM TENDER/fellow/resident. I reviewed the history and exam detailed [...] back in 3 months with repeat imaging. Archie Hugo MD/PhD entry level manager Division of Surgical Oncology Department of Surgery documented in this encounter [facility] 12-10-2022 Instructions MAMTA Villagran - 12/10/2022 12:30 PM EDT documented in this encounter [facility] 10-22-2022 History of Present illness Narrative [...] vision changes. 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 but overall able to do everything on [...] PROBE (HIPEC) N/A 05/22/2022 Laterality: N/A; Surgeon: Archei Hguo MD, PhD; Location: [facility] MAIN OR COLECTOMY PARTIAL OPEN Right 05/22/2022 Laterality: Right; Surgeon: Archie Hugo MD, PhD; Location: [facility] MAIN OR DEBULKING INTRA-ABDOMINAL/PELVIC/RETROPERIT FLEMING W/ OMENECTOMY & PELVIC PARA-AORTIC LYMPHADENECTOMY N/A 05/22/2022 Laterality: N/A; Surgeon: Archie Hugo MD, PhD; Location: [facility] MAIN OR COLECTOMY PARTIAL LAPAROSCOPIC N/A 04/21/2022 Laterality: N/A; Surgeon: Archie Hugo MD, PhD; Location: [facility] MAIN OR COLONOSCOPY DIAGNOSTIC 04/08/2022 APPENDECTOMY LAPAROSCOPIC 02/03/2022 [place], [place] Family History Problem Relation Age of [...] Reported on 07/06/2022) 30 tablet 0 Pancrelipase, Tqk-Pqhn-Ihqf, (Creon) [id number] units Cap DR Particles Take two caps [...] Suero MD documented in this encounter [facility] 10-22-2022 Instructions Rebekah Suero MD - [...] Rub Alcohol hand rub, also called hand pharmacy general manager, can be used instead of soap and [...] they are dry, atleast 20-30 seconds. [facility]. This handout is for informational purposes only. Talk with your doctor or healthcare team if you have any questions about your care. For more health information call the [employer] Health Information at [phone] or email: [email or web address]. documented in this encounter [facility] 10-22-2022 History of Present illness Narrative Intravenous access obtained and remained for next appointment in cardioology at [facility]. 22 gauge IV in left ac. Dressing intact and/or coban used to secure access. Patient instructed to report directly to next appointment. documented in this encounter [facility] 10-07-2022 Note Acute Coronary Syndr ome (ACS): Initial Evaluation and Management: [email or web address] /ebm/Documents/Guidelines/Acute%2 0Coronary%20Syndrome.pdf#search=andrew fernando [facility] 10-07-2022 History of Present illness Narrative [...] referred to endocrine oncology clinic by Dr. Hugo. Hx of acid reflux/burning pain for 10y, [...] initiate visit [facility] surgical team Dr. Hugo 03/31/2022 CT chest: a small subpleural nodule [...] cells. 05/22/2022 - Exploratory laparotomy by Dr. Hugo - Resection of falciform ligament - Omentectomy [...] able to do housework. 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 Eating ok. Weight [...] Reported on 07/06/2022) 30 tablet 0 Pancrelipase, Uca-Nvrt-Ayjs, (Creon) [id number] units Cap DR Particles Take two caps [...] PROBE (HIPEC) N/A 05/22/2022 Laterality: N/A; Surgeon: Archie Hugo MD, PhD; Location[facility] COLECTOMY PARTIAL OPEN Right 05/22/2022 Laterality: Right; Surgeon: Archie Hugo MD, PhD; Location: [facility] MA[facility] OR DEBULKING INTRA-ABDOMINAL/PELVIC/RETROPERIT FLEMING W/ OMENECTOMY & PELVIC PARA-AORTIC LYMPHADENECTOMY N/A 05/22/2022 Laterality: N/A; Surgeon: Archie Hugo MD, PhD; Location: [facility] MA[facility] OR COLECTOMY PARTIAL LAPAROSCOPIC N/A 04/21/2022 Laterality: N/A; Surgeon: Archie Hugo MD, PhD; Location: [facility] MA[facility] OR COLONOSCOPY DIAGNOSTIC 04/08/2022 APPENDECTOMY LAPAROSCOPIC 02/03/2022 [place], [place] Past medical, surgical, family, and social [...] HIPEC with mitomycin C. f/up with Dr. Hugo. The patient had a number of questions which were answered to the best of our ability and to her apparent satisfaction. The patient is agreeable with the plan of care. Of course, in the interim, she is instructed to contact us with any questions, concerns, or any new or worsening symptoms. Yudelka Moralez APRN-SURFACE PLATE FINISHER Endocrine Tumor Program [facility] [place] Ghulam Barcenas [facility] and [facility] [place] To discuss with Dr. Ortega [facility] Instructions Johana Lutz RN - [...] script to Zainab Thank you for choosing [facility] for your cancer care. FMLA/Disability forms: Please allow up to 2 weeks for the forms to be returned to you +++ should you need any FMLA, Short term disability or ad terminal makeup operator disability forms filled out please fax them to (f) [phone] ++++ Refill requests: Please allow 24-48 hours for a response My chart message response: PLEASE DO NOT SEND IN URGENT/EMERGENT MESSAGES VIA MY CHART. Please allow up to 24-48 hours for a response via my chart. Should you have questions or concerns, please call [phone] documented in this encounter [facility] 07-08-2022 History of Present illness Narrative [...] referred to endocrine oncology clinic by Dr. Hugo. Hx of acid reflux/burning pain for 10y, [...] initiate visit with [facility] surgical team Dr. Hugo 03/31/2022 CT chest: a small subpleural nodule [...] cells. 05/22/2022 - Exploratory laparotomy by Dr. Hugo - Resection of falciform ligament - Omentectomy [...] with 1 peritoneal implant referred by Dr. Hugo Most recent surgery 05/22/22--recovering well but slowly [...] quickly and requires nap. 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 Better appetite with [...] PROBE (HIPEC) N/A 05/22/2022 Laterality: N/A; Surgeon: Archie Hugo MD, PhD; [facility] PART[facility] OPEN Right 05/22/2022 Laterality: Right; Surgeon: Archie Hugo MD, PhD; [facility] DEBULKING INTRA-ABDOMINAL/PELVIC/RETROPERIT FLEMING W/ OMENECTOMY & PELVIC PARA-AORTIC LYMPHADENECTOMY N/A 05/22/2022 Laterality: N/A; Surgeon: Archie Hugo MD, PhD; Location[facility] OR COLECTOMY PARTIAL LAPAROSCOPIC N/A 04/21/2022 Laterality: N/A; Surgeon: Archie Hugo MD, PhD; [facility] COLONOSCOPY DIAGNOSTIC 04/08/2022 APPENDECTOMY LAPAROSCOPIC 02/03/2022 [place], [place] Social History Socioeconomic History Marital status: [...] recommendations. MAMTA Travis Neuroendocrine Tumor Program [facility] Addendum by Dr. Ortega: IAttending Addendum:I saw [...] mucinous neoplasm. She was seen by Dr. Archie Hugo ([facility] surgon) in 03/[address] chest [...] mesothelial proliferation, cecum without NET or LAMN, [address] positive for metastatic NET. LMAN- [...] and fatigue. ECOG PS 1. 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 1. Metastatic, well differentiated, grade 1, appendicular [...] placebo groups was 14.3 and 6 months (p=[id number]), respectively. The CLARINET study, [which enrolled patients [...] 2. LAMN: Discussed with Dr. Carol Summers/GI [facility] who recommended active surveillance. No role for adjuvant systemic therapy. Patient will continue to follow with Dr. Archie Hugo. 3. Hx of NET in family: referral to genetics 4. Transaminitis: discontinue hepatotoxins/acetaminophen. Repeat LFTs at RTC. documented in this encounter [facility] 07-08-2022 Instructions Yina Amaya RN - [...] pathology-done documented in this encounter [facility] 06-09-2022 History of Present illness Narrative Chief Complaint: Chief Complaint Patient presents with Follow-up HPI: Zainab Swift is a 27 y.o. female who presents to [facility] GI Surgical Oncology Clinic for post-operative [...] available imaging and labs reviewed with Dr. Hugo, and the plan was developed collaboratively. 1. NET med onc referral 2. RTC 4 weeks telehealth visit 3. CT in 6 months and appointment with Dr. Hugo Will call with any questions, concerns, or change in clinical status. MAMTA Carrion [facility] Instructions Veronique Calvin RN - 06/09/2022 1:15 PM EST Tele health visit with Raina Gomes CNP in 4 weeks on a Wednesday. Referral placed to neuroendocrine oncology. Return in [address] Hugo with scans same day. documented in this encounter [facility] 05-29-2022 Note Formatting of this n [...] with all belongings at 1147. [facility] 05-29-2022 Miscellaneous Notes Patient and spouse given all discharge instructions at this time. Patient verbalizes understanding of all discharge instructions and picked up all prescriptions from [facility]. Patient states she properly demonstrated how [...] transfusions, injectables) (Follow up scheduled with Dr. Hugo) CM/SW AVS Portion Completed Yes Plan Plan Possible discharge this weekend. Plan Comments Discharge to home with spouse Transport Request Mode of Transfer private vehicle Accompanied By significant other Zainab Swift is a 27 y.o. 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 [facility] Inpatient PCR Discharge Note Patient discussed in am medical [...] and assistance is needed, please page the extrusion press operator PCRM at [phone]. Patient did well overnight. Patient pain mostly [...] disintegrating tablet because of the NG. Thanks [id number] Q1 safety rounds completed. Patient pain controlled [...] Providers Updated In IHIS Yes Contact Information Music Specialist/SW Added to Care Team Yes This Director Of Media is Primary Music Specialist/SW Yes (Antonio Jiang RN [facility] [phone]) Music Specialist Name Pinky Barcenas RN [facility] Music Specialist's Social Work Contact Name Bailey Magallanes MSW, [facility] Lathe Set Up Operator's Living Environment Lives With spouse Living [...] Education And Care For Discharge? Phill Swift [phone] Can Support Person Meet The Care Needs Of The Patient? 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 Employment/Financial Concerns no Source Of Income salary/wages Financial Concerns none Insurance Medical Insurance Verified Yes Prescription Coverage Yes Pharmacy updated in IHIS Yes Initial Discharge Planning Home Care Services (LINK WIRE FABRIC MACHINE TENDER) No Home Therapies (LINK WIRE FABRIC MACHINE TENDER) None DME (LINK WIRE FABRIC MACHINE TENDER) None Medical Supplies (LINK WIRE FABRIC MACHINE TENDER) None Patient Goal for Discharge Return home with assistance from family and friends Anticipated discharge disposition Home Anticipated Services at Discharge Outpatient follow up Anticipated Changes Related to Illness none Current Discharge Risk high risk diagnoses (i.e., CHF, Stroke, DM, chronic pain, abdominal pain, nausea and vomiting) Transportation Available car Home Care Services (LINK WIRE FABRIC MACHINE TENDER) Additional Home Care Services (LINK WIRE FABRIC MACHINE TENDER) no Assessment/Concerns to be Addressed Concerns To [...] Lines/Drains/Tubes Abdominal incision with dressing x 2 [place] drain x 1-under distal dressing NG-low wall [...] All questions answered. 1514: Patient discharged from [facility] PACU per protocol. Patient transported via gurney with side rails up x2 with HOB>30 degrees to room 1204 [facility] by Natalia EMERY and Dang LISA. Family called to patient's bedside. 1310: Patient arrives in [facility] PACU from OR via gurney with side rails up x2 with HOB >30 degrees, accompanied by Anesthesiologist: Carol Gupta DO; Chayo Benson MD Diesel Engine Tester: VIJAYA Gamboa; VIJAYA Lopez Physical Medicine Teacher Assisting: Richard Bradshaw MD Tree Feller: Wali Art. Patient placed on monitors, VSS. Report received from anesthesia. Patient assessed, see assessment. 1427: PACU labs and abdominal xray for NG placement cleared by Miguel Betancourt at this time. 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 JR drain placed in pelvis. SURGEON Surgeon(s) and Role: * Archie Hugo MD, PhD - Primary ANESTHESIOLOGIST Anesthesiologist: Carol Gupta DO; Chayo Benson MD Diesel Engine Tester: VIJAYA Gamboa; VIJAYA Lopez Physical Medicine Teacher Assisting: Richard Bradshaw MD Tree Feller: Wali Art SURGICAL STAFF Endodontist: Piedad Maki RN; Rima Medel RN Relief Endodontist: Suri Stockton RN Relief Scrub: Ghanshyam Townsend Scrub Person: Heidy Skelton; Tammy Lopez Resident Assisting: Rodolfo Arnold MD; Narciso Hong MD COMPLICATIONS None ESTIMATED BLOOD LOSS Minimal SPECIMENS . ID Type Source Tests Collected by Time Destination 1 : CALCIFORM LIGAMENT Permanent SURG PATH SURG PATH REQUEST Archie Hugo MD, PhD 05/22/2022 0831 2 : Omentum Permanent SURG PATH SURG PATH REQUEST Archie Hugo MD, PhD 05/22/2022 0854 3 : Peritoneal implant #1 Permanent SURG PATH SURG PATH REQUEST Archie Hugo MD, PhD 05/22/2022 0900 4 : Peritoneal implant #2 Permanent SURG PATH SURG PATH REQUEST Archie Hugo MD, PhD 05/22/2022 0902 5 : TERMINAL ILEUM AND COLON Permanent SURG PATH SURG PATH REQUEST Archie Hugo MD, PhD 05/22/2022 0924 6 : PERITONEAL IMPLANT #3 Permanent SURG PATH SURG PATH REQUEST Archie Hugo MD, PhD 05/22/2022 0936 7 : PERITONEAL IMPLANT #4 Permanent SURG PATH SURG PATH REQUEST Archie Hugo MD, PhD 05/22/2022 0941 This procedure was not performed to treat colon cancer through resection Rodolfo Arnold MD May 22, 2022 1:06 PM Zainab Swift ([id number]) PRE OPERATIVE DIAGNOSIS Primary malignant neuroendocrine tumor [...] out LLQ SURGEON Surgeon(s) and Role: * Archie Hugo MD, PhD - Primary ANESTHESIOLOGIST Anesthesiologist: Carol Gupta DO; Chayo Benson MD Diesel Engine Tester: VIJAYA Gamboa; VIJAYA Lopez Physical Medicine Teacher Assisting: Richard Bradshaw MD Tree Feller: Wali Art SURGICAL STAFF Endodontist: Piedad Maki RN; Rima Medel RN Relief Endodontist: Suri Stockton RN Relief Scrub: Ghanshyam Townsend Scrub Person: Heidy Skelton; Tammy Lopez Resident Assisting: Rodolfo Arnold MD; Narciso Hong MD COMPLICATIONS None ESTIMATED BLOOD LOSS 25 ml SPECIMENS ID Type Source Tests Collected by Time Destination 1 : CALCIFORM LIGAMENT Permanent SURG PATH SURG PATH REQUEST Archie Hugo MD, PhD 05/22/2022 0831 2 : Omentum Permanent SURG PATH SURG PATH REQUEST Archie Hugo MD, PhD 05/22/2022 0854 3 : Peritoneal implant #1 Permanent SURG PATH SURG PATH REQUEST Archie Hugo MD, PhD 05/22/2022 0900 4 : Peritoneal implant #2 Permanent SURG PATH SURG PATH REQUEST Archie Hugo MD, PhD 05/22/2022 0902 5 : TERMINAL ILEUM AND COLON Permanent SURG PATH SURG PATH REQUEST Archie Hugo MD, PhD 05/22/2022 0924 6 : PERITONEAL IMPLANT #3 Permanent SURG PATH SURG PATH REQUEST Archie Hugo MD, PhD 05/22/2022 0936 7 : PERITONEAL IMPLANT #4 Permanent SURG PATH SURG PATH REQUEST Archie Hugo MD, PhD 05/22/2022 0941 Colon Resection Operation performed with curative intent Yes Tumor Location Cecum Extent of colon and vascular resection Right hemicolectomy - ileocolic, right colic (if present) Narciso Hong MD May 22, 2022 1:04 PM SURGEONS: Archie Hugo MD, PhD AMBULANCE OFFICER SURGEON: Rodolfo Arnold MD PROCEDURE: - Exploratory [...] second timeout per standard procedure at the [facility]. We made a midline incision [...] sarmiento stapler device. Next, we began the jqazlc-pm-zbuogdd dissection to mobilize the colonic mesentery. We [...] filed. We then proceeded with creating a uewo-oj-axzs functional end-to-end anastomosis between the distal ileum [...] Pain Level/Goal 6 Incision (Adult, Pediatric) 04/21/22 07 upper;medial abdomen laparoscopic puncture Placement Date/Time: 04/21/22745 Present On Admission : no Orientation: upper;medial Location: abdomen Incision Type: laparoscopic puncture Incision WDL WDL Incision (Adult, Pediatric) 04/21/22 07 Left lateral abdomen laparoscopic puncture Placement Date/Time: [...] Seen 05/22/22 documented in this encounter [facility] 05-29-2022 Hospital course Narrative Discharge Summary Name: Zainab Swift Age: 27 y.o. Birthday: 1995 Admit Date: 05/22/2022 5:09 AM Discharge Date: 9:31 AM Discharge Time: 05/29/22 Discharge Unit: C12A Admission Information Admitting Physician: Archie Hugo MD, PhD Discharge Information Discharge Physician: Dr. [...] of Surgical Oncology Arrive at: [facility] to [facility] Registration [phone] documented in this encounter [facility] 05-28-2022 Note Formatting of this n ote is different from the original. 05/28/22 1018 Referral Information Arrived From home or self-care;operating room Final Discharge Planning Discharge Disposition Home Services at Discharge Outpatient clinical services (ie: lab draws, transfusions, injectables) (Follow up scheduled with Dr. Hugo) CM/SW AVS Portion Completed Yes Plan Plan Possible discharge this weekend. Plan Comments Discharge to home with spouse Transport Request Mode of Transfer private vehicle Accompanied By significant other Zainab Swift is a 27 y.o. 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 [facility] Inpatient PCR Discharge Note Patient discussed in am medical [...] and assistance is needed, please page the extrusion press operator PCRM at [phone]. [facility] 05-28-2022 History of Present illness Narrative [...] the care of Zainab Swift. Please page [phone] or call [phone] with any questions or concerns. Elroy Powell MD Acute Pain Service Senior Resident @ [phone] Subjective: Passing gas and having regular BMs. [...] was discussed with Dr. Oanh Betancourt APRN-TASH [facility]B surgery G3 service [id number] Anesthesia Acute Pain Progress Note Zainab Swift [...] acute pain service at [phone] or call [phone] with any questions or concerns. Yann Burr [...] with MAMTA Wisdom B surgery G3 service [id number] Psychosocial Assessment Per chart review, patient is a is a 27 y.o. 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 PMH: anxiety, borderline personality disorder, depression, GERD SW met with patient to introduce self, explain social media assistant role during inpatient stay, and answer patient questions. Patient was alert and oriented x4 and agreeable to SW visit. Information Source Information Source: patient , review of medical record, spouse Information Source Name: Arlette Swift Information Source Number: see demographics Contact Information Music Specialist Name: Pinky Smith RN [facility] Music Specialist's Social Work Contact Name: Bailey WILLAMS [facility] Lathe Set Up Operator's Living Environment Lives With: spouse Living Arrangements: house (one story house wiith 3 Steps to enter) Provides Primary Care For: no one Primary Care Provided By: spouse/significant other, self Support System: Immediate family Able to Return to Prior Arrangements: yes Employment/Financial Employed?: Yes 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 Health Insurance / Rx: [id number] [place] [address] - [address] [facility] Anticipated Discharge Plan: Pt report she plans to return home with care and transportation provided by her . Medical Team Considerations: None SW Interventions/Recommendations: Service SW name and contact information placed on white board in patient's room to contact as needed. SW will continue to remain available to provide assistance and support as needed during inpatient stay. Bailey Magallanes, SLATE MIXER, FOOD STAND MANAGER SONC and HPB Lathe Set Up Operator Pager: [phone] For Evening (4:30pm-8am) and Weekend SW needs please call [phone] or page [phone] Anesthesia Acute Pain Progress Note Zainab Swift [...] helps: yes Side effects: none Pt has lewsi: yes Pt has chest tube: no Epidural [...] acute pain service at [phone] or call [phone] with any questions or concerns. Yann Burr [...] Oanh Colón APRN-TASH B surgery G3 service [id number] Anesthesia Acute Pain Progress Note Zainab Swift [...] acute pain service at [phone] or call [phone] with any questions or concerns. Yann Burr [...] Out: 3380 [Urine:3050; Other:330] Bun/Creat/Cl/CO2/Glucose: 2/0.51/104/24/98 (05/25 021) WBC/Hgb/Hct/Plts: 9.85/9.8/31.7/292 (05/25 219) Na/K+/Phos/Mg/Ca: 137/4.0/3.2/1.8/8.5 (05/25 [...] interviewed and examined this patient with the DRUM TENDER/fellow/resident. I reviewed the history and exam detailed in the note and have edited it as necessary. I agree with the medical decision making unless otherwise noted below. The patient is doing well. Her pain is well controlled. She is mildly distended on exam. We will continue NPO with NGT until return of bowel function. Archie Hugo MD/PhD entry level manager Division of Surgical Oncology Department of Surgery [...] Plan was discussed with Dr. Oanh Colón, IMPORT CUSTOMS CLEARING AGENT-SURFACE PLATE FINISHER B surgery G3 service [id number] HPB Surgery Note Subjective: Patient doing well [...] acute pain service at [phone] or call [phone] with any questions or concerns. Yann Burr [...] minutes Total: 12 ml/hour Physical Exam: Vitals: 05/23/22823 BP: 112/61 Pulse: 104 Resp: 20 Temp: 98.4 F (36.9 C) Neuro: no focal deficits Catheter Site: Erythema: none Dressing: c/d/i Catheter: 12cm at skin (5.5cm in space) Impression: Epidural working well. Pain well-managed. PCEA: 5 administered, 5 pushes. Has required 0 additional OMEs over the last 24 hours. Plan: - Continue current regimen Please page acute pain service at [phone] or call [phone] with any questions or concerns. Yann Burr [...] acute pain service at [phone] or call [phone] with any questions or concerns. Richard Bradshaw MD residential youth counselor [facility] documented in this encounter [facility] 05-27-2022 Note Formatting of this n [...] stand-by assistance from multiple times yesterday. [facility] 05-26-2022 Consult note Formatting of th [...] 1: Location: forearm, anterior, right Device/Lot Number: [id number] catheter system Gauge/Length: 1 3/4 in length;20 gauge Unsuccessful Insertion Attempts: 1 Unsuccessful Attempt Location/Site: Pain Prevention/Patient Tolerance: distraction;tolerated well;appears comfortable Removal: Additional Comments: placed by Carla Mccurdy RN Lumen 2: Lumen 3: Peripheral IV Present on Admission: (Retired/Read Only) Location: (Retired/Read Only) Device: (Retired/Read Only) Gauge/Length: Business Planning Manager/Lot Number: Unsuccessful Insertion Attempts: (Retired/Read Only) Unsuccessful [...] care of this patient. Vascular Access Team [id number] [facility] 05-26-2022 Consult note Formatting of th [...] 1: Location: forearm, anterior, right Device/Lot Number: [id number] catheter system Gauge/Length: 1 3/4 in length;20 gauge Unsuccessful Insertion Attempts: 1 Unsuccessful Attempt Location/Site: Pain Prevention/Patient Tolerance: distraction;tolerated well;appears comfortable Removal: Additional Comments: placed by Carla Mccurdy RN Lumen 2: Lumen 3: Peripheral IV Present on Admission: (Retired/Read Only) Location: (Retired/Read Only) Device: (Retired/Read Only) Gauge/Length: Business Planning Manager/Lot Number: Unsuccessful Insertion Attempts: (Retired/Read Only) Unsuccessful [...] without difficulty;blood return, able to obtain 05/26/222035 Lumen 1 Cap/Connector Changed/Applied 05/26/22 05/26/222035 Phlebitis [...] care of this patient. Vascular Access Team [id number] documented in this encounter [facility] 05-25-2022 Note Formatting of this n ote might be different from the original. 4: Moonlighter paged: Rm [phone], Krylkang: FYMichi pt states that she can't tolerate taking the olanzapine disintegrating tablet because of the NG. Thanks [id number] [facility] 05-22-2022 Note Formatting of this n [...] discharge/transition of care. Outcome: Ongoing [facility] 05-22-2022 Note Formatting of this n ote might be different from the original. I certify that this patient requires inpatient services at this time. I anticipate the expected length of stay will include at least two midnights. Inpatient services are due to the following medical concerns appendiceal NET. Plans for post hospitalization care will be discharge to home. [facility] 05-22-2022 Note Formatting of this n ote is different from the original. 05/22/22 1608 Referral Information Arrived From home or self-care;operating room Readmission Information Was patient readmitted within 30 Days? No Information Source Information Source patient Information Source Name Zainab Swift-in person Information Source Number Demographics reviewed Outpatient Providers Outpatient Providers Updated In IHIS Yes Contact Information Music Specialist/SW Added to Care Team Yes This Director Of Media is Primary Music Specialist/SW Yes (Antonio Jiang RN [facility] [phone]) Music Specialist Name Pinky Barcenas RN [facility] Music Specialist's Social Work Contact Name Bailey WILLAMS, [facility] Lathe Set Up Operator's Living Environment Lives With spouse Living [...] Education And Care For Discharge? Phill Swift [phone] Can Support Person Meet The Care Needs Of The Patient? 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 Employment/Financial Concerns no Source Of Income salary/wages Financial Concerns none Insurance Medical Insurance Verified Yes Prescription Coverage Yes Pharmacy updated in [facility] Yes Initial Discharge Planning Home Care Services (LINK WIRE FABRIC MACHINE TENDER) No Home Therapies (LINK WIRE FABRIC MACHINE TENDER) None DME (LINK WIRE FABRIC MACHINE TENDER) None Medical Supplies (LINK WIRE FABRIC MACHINE TENDER) None Patient Goal for Discharge Return home with assistance from family and friends Anticipated discharge disposition Home Anticipated Services at Discharge Outpatient follow up Anticipated Changes Related to Illness none Current Discharge Risk high risk diagnoses (i.e., CHF, Stroke, DM, chronic pain, abdominal pain, nausea and vomiting) Transportation Available car Home Care Services (LINK WIRE FABRIC MACHINE TENDER) Additional Home Care Services (LINK WIRE FABRIC MACHINE TENDER) no Assessment/Concerns to be Addressed Concerns To [...] discharge planning. Medical team updated. [facility] 05-22-2022 Note Formatting of this n ote might be different from the original. 1512: Report called to Jevon EMERY on 12 Isrrael. All questions answered. 1514: Patient discharged from [facility] PACU per protocol. Patient transported via gurney with side rails up x2 with HOB>30 degrees to room 1204 [facility] by Natalia RN and Dang TOOL DESIGN ENGINEER. Family called to patient's bedside. [facility] 05-22-2022 Note Formatting of this n ote might be different from the original. 1310: Patient arrives in [facility] PACU from OR via gurney with side rails up x2 with HOB >30 degrees, accompanied by Anesthesiologist: Carol Gupta DO; Chayo Benson MD Diesel Engine Tester: VIJAYA Gamboa; VIJAYA Lopez Physical Medicine Teacher Assisting: Richard Bradshaw MD Tree Feller: Wali Art. Patient placed on monitors, VSS. Report received from anesthesia. Patient assessed, see assessment. 1427: PACU labs and abdominal xray for NG placement cleared by Miguel Betancourt at this time. [facility] 05-22-2022 Note Formatting of this n ote is different from the original. 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 JR drain placed in pelvis. SURGEON Surgeon(s) and Role: * Archie Hugo MD, PhD - Primary ANESTHESIOLOGIST Anesthesiologist: Carol Gupta DO; Chayo Benson MD Diesel Engine Tester: VIJAYA Gamboa; VIJAYA Lopez Physical Medicine Teacher Assisting: Richard Bradshaw MD Tree Feller: Wali Art SURGICAL STAFF Endodontist: Piedad Maki RN; Rima Medel RN Relief Endodontist: Suri Stockton RN Relief Scrub: Ghanshyam Townsend Scrub Person: Heidy Skelton; Tammy Lopez Resident Assisting: Rodolfo Arnold MD; Narciso Hong MD COMPLICATIONS None ESTIMATED BLOOD LOSS Minimal SPECIMENS . ID Type Source Tests Collected by Time Destination 1 : CALCIFORM LIGAMENT Permanent SURG PATH SURG PATH REQUEST Archie Hugo MD, PhD 05/22/2022 0831 2 : Omentum Permanent SURG PATH SURG PATH REQUEST Archie Hugo MD, PhD 05/22/2022 0854 3 : Peritoneal implant #1 Permanent SURG PATH SURG PATH REQUEST Archie Hugo MD, PhD 05/22/2022 0900 4 : Peritoneal implant #2 Permanent SURG PATH SURG PATH REQUEST Archie Hugo MD, PhD 05/22/2022 0902 5 : TERMINAL ILEUM AND COLON Permanent SURG PATH SURG PATH REQUEST Archie Hugo MD, PhD 05/22/2022 0924 6 : PERITONEAL IMPLANT #3 Permanent SURG PATH SURG PATH REQUEST Archie Hugo MD, PhD 05/22/2022 0936 7 : PERITONEAL IMPLANT #4 Permanent SURG PATH SURG PATH REQUEST Archie Hugo MD, PhD 05/22/2022 0941 This procedure was not performed to treat colon cancer through resection Rodolfo Arnold MD May 22, 2022 1:06 PM [facility] Work Phone: 05-22-2022 Note Formatting of this n ote is different from the original. Zainab Swift ([id number]) PRE OPERATIVE DIAGNOSIS Primary malignant neuroendocrine tumor [...] out LLQ SURGEON Surgeon(s) and Role: * Archie Hugo MD, PhD - Primary ANESTHESIOLOGIST Anesthesiologist: Carol Gupta DO; Chayo Benson MD Diesel Engine Tester: VIJAYA Gamboa; VIJAYA Lopez Physical Medicine Teacher Assisting: Richard Bradshaw MD Tree Feller: Wali Art SURGICAL STAFF Endodontist: Piedad Maki RN; Rima Medel RN Relief Endodontist: Suri Stockton RN Relief Scrub: Ghanshyam Townsend Scrub Person: Heidy Skelton; Tammy Lopez Resident Assisting: Rodolfo Arnold MD; Narciso Hong MD COMPLICATIONS None ESTIMATED BLOOD LOSS 25 ml SPECIMENS ID Type Source Tests Collected by Time Destination 1 : CALCIFORM LIGAMENT Permanent SURG PATH SURG PATH REQUEST Archie Hugo MD, PhD 05/22/2022 0831 2 : Omentum Permanent SURG PATH SURG PATH REQUEST Archie Hugo MD, PhD 05/22/2022 0854 3 : Peritoneal implant #1 Permanent SURG PATH SURG PATH REQUEST Archie Hugo MD, PhD 05/22/2022 0900 4 : Peritoneal implant #2 Permanent SURG PATH SURG PATH REQUEST Archie Hugo MD, PhD 05/22/2022 0902 5 : TERMINAL ILEUM AND COLON Permanent SURG PATH SURG PATH REQUEST Archie Hugo MD, PhD 05/22/2022 0924 6 : PERITONEAL IMPLANT #3 Permanent SURG PATH SURG PATH REQUEST Archie Hugo MD, PhD 05/22/2022 0936 7 : PERITONEAL IMPLANT #4 Permanent SURG PATH SURG PATH REQUEST Archie Hugo MD, PhD 05/22/2022 0941 Colon Resection Operation performed with curative intent Yes Tumor Location Cecum Extent of colon and vascular resection Right hemicolectomy - ileocolic, right colic (if present) Narciso Hong MD May 22, 2022 1:04 PM [facility] Work Phone: 05-22-2022 Note Formatting of this n ote is different from the original. SURGEONS: Archie Hugo MD, PhD AMBULANCE OFFICER SURGEON: Rodolfo Arnold MD PROCEDURE: - Exploratory [...] second timeout per standard procedure at the [facility]. We made a midline incision [...] the vessel and was taken with an Nefsis-KARRIE sarmiento stapler device. Next, we began the mkfvco-yl-pksxpfu dissection to mobilize the colonic mesentery. We [...] filed. We then proceeded with creating a cdsd-jl-qfcm functional end-to-end anastomosis between the distal ileum [...] the entirety of the case. [facility] Work Phone: 05-22-2022 Nurse Surgical operation note 0815 Family notified of surgery start 1021, 121 Family updated 1228 Handoff report sent to PACU charge nurse 1255 PACU given notice of arrival 1309 Patient extubated and transported to PACU with anesthesia at bedside and on oxygen inhalation Rima Medel RN [facility] 05-22-2022 Nurse Note 0815 Family notified of surgery start 1021, 121 Family updated 1228 Handoff report sent to PACU charge nurse 1255 PACU given notice of arrival 1309 Patient extubated and transported to PACU with anesthesia at bedside and on oxygen inhalation Rima Medel RN documented in this encounter [facility] 05-22-2022 Note Formatting of this n [...] General Pain Level/Goal 6 Incision (Adult, Pediatric) 10/04/22 0746 upper;medial abdomen laparoscopic puncture Placement Date/Time: [...] Visit Frequency Sat Last Date Seen 05/22/22 [facility] 05-22-2022 History and physical note Surgical Oncology Pre Procedure H&P Surgeon Archie Hugo MD, PhD Chief Complaint: Primary malignant neuroendocrine [...] PARTIAL LAPAROSCOPIC N/A 04/21/2022 Laterality: N/A; Surgeon: Archie Hugo MD, PhD; [facility]ST[facility] 04/08/2022 APPENDECTOMY LAPAROSCOPIC 02/03/2022 [place], [place] Family History Family History Problem Relation [...] or chills. Plan Plan was developed by Archie Hugo MD, PhD Pt to receive rocephin and flagyl as pre-operative antibiotics. Anticipate hospital admission after procedure today. We will proceed with surgery as surgical risks, benefits and consent were discussed by Archie Hugo MD, PhD when they saw the patient in clinic on 04/14/2022. Pre-operative work up is wnl. All questions addressed to the patient's satisfaction. Liza Csineros PA-C [facility] 05-22-2022 History and physical note Surgical Oncology Pre Procedure H&P Surgeon Archie Hugo MD, PhD Chief Complaint: Primary malignant neuroendocrine [...] PARTIAL LAPAROSCOPIC N/A 04/21/2022 Laterality: N/A; Surgeon: Archie Hugo MD, PhD; [facility] COL[facility] DI[facility]NOSTIC 04/08/2022 APPENDECTOMY LAPAROSCOPIC 02/03/2022 [place], [place] Family History Family History Problem Relation [...] or chills. Plan Plan was developed by Archie Hugo MD, PhD Pt to receive rocephin and flagyl as pre-operative antibiotics. Anticipate hospital admission after procedure today. We will proceed with surgery as surgical risks, benefits and consent were discussed by Archie Hugo MD, PhD when they saw the patient in clinic on 04/14/2022. Pre-operative work up is wnl. All questions addressed to the patient's satisfaction. Liza Cisneros PA-C documented in this encounter [facility] 05-21-2022 Hospital Discharge instructions Pinky Be RN - 05/21/2022 10:38 AM EDT Contacts: Archie Hugo MD Office Number: [phone] Option 1 During office hours, Wednesday through Wednesday, 8:00 AM to 4:30 PM, call the office if you have any questions or concerns. After hours, weekends and holidays call the office number and you will be transferred to the After Hours Nurse Line. Call 911 for Emergencies. Your immigration case manager (PCRM) has arranged your appointments [...] pharmacist before using any other medicine, including abch-reg-cbiptug medicines, vitamins, and herbal products. Avoid taking [...] and support, many resources are available. The Invisible Sentinel Call to request information or check hours. The [facility] JAMESLINE: or , www.Integrata Security [place] Care Classes: Itandi, Integrative Care Monthly Classes The CanaryHop for Life Program offers a series of [...] families and friends. For more information, contact [employer] at or visit our website at www.Integrata Security Resources in [facility] include the following: The [place] Cancer Society, [facility] . The Wellness Community [facility] The Cancer Support [facility]: http://cancersupportohio.org/prog rgww-beg-rnivnejh/virtual-communi ty/ National Resources: [place] Cancer Society (ACS), www.cancer.org 6-458-MDW-2345, [place]: 1-383-GTP-[place]. National Comprehensive Cancer [facility] (NCCN) 5-790-236-NCCN, www.nccn.org National Cancer [place] (NCI) 5-208-5-CANCER, www.nci.gov The following attachments cannot be sent through Care Everywhere.Lovenox or Heparin: Subcutaneous Injections ([facility]) (Algerian)documented in this encounter [facility] 04-29-2022 Note PROCEDURE: XR HIP RT [...] authenticated by: CAROLYN WALSH Date: 2022-04-29 16:59 [facility] 04-29-2022 Note PROCEDURE: XR HIP RT 2 [...] by: CAROLYN WALSH Date: 2022-04-29 16:59 [facility] 04-29-2022 Note PROCEDURE: XR HIP RT [...] by: CAROLYN WALSH Date: 2022-04-29 16:59 [facility] 03-19-2022 History of Present illness Narrative [...] appendectomy on 02/03/22 for acute appendicitis at [facility]. 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 She presents to [facility] GI Surgical Oncology clinic for surgical [...] History: Procedure Laterality Date APPENDECTOMY LAPAROSCOPIC 02/03/2022 [facility], [place], [place] No Known Allergies Current Outpatient Medications [...] Plan Patient seen and evaluated by Dr. Hugo, all available relevant imaging and labs reviewed. [...] in our surgical oncology clinic at [facility], [facility]. As you know, Ms. Swift is a [...] of any assistance in the future. Sincerely, Archie Hugo MD, PhD entry level manager Department of Surgery Division [place] [address] Office [phone] Fieldon [phone] Fax [email or web address] documented in this encounter [facility] 03-19-2022 Instructions Rhoda Lazo RN - 03/19/2022 3:00 PM EDT Pre-operative Information As a patient at the [facility], you may work with various departments and have help from many professionals. One of these is a surgical oncologist who works in the Division of Surgical Oncology. Surgical oncologists are surgeons who have completed advanced training to care for cancer patients. All of the surgical oncologists at the [facility] have completed specialized training and are board-certified. The surgeon who will be performing your surgery is Archie Hugo M.D., entry level manager. [address] [place] [address] Office phone: [phone] We are available to take calls Wednesday-Wednesday 8:00am-4:30pm. During non-business hours and holidays phone calls will be forwarded to a service covering our patients. Please communicate with our team through [facility] Networks[facility] for non-urgent issues only. Office fax: [phone] Clinic Nurse Practitioner Raina Gomes Auto Carrier Driver Sandra Kennedy Mammography Technician Iris Giraldo OUR TEAM OF EXPERTS [facility] is associated with The [facility] and is an academic medical center. Dr. Skip Le is an attending physician, the awning hanger supervisor of your care. Listed below are the members of his team: Surgical Oncology Fellow: a physician who completed residency and is obtaining further education. Resident(s): a physician who has finished phd internship and is receiving training in a specialized area (i.e. surgery) Cork Mixer(s): a physician who has completed medical school and is in the 1st year of training Nurse Practitioner (DRUM TENDER): A registered nurse with a master's or doctoral degree who is licensed to practice; Clinic: Raina Gomes [facility]: [facility], [facility], Suman Jeffries, [facility], Kika Colón, [facility], Monica Jackson, [facility] Patient Care Wireless Sales Representative (PCRM): A registered nurse who coordinates care for patients returning home from the hospital and assists in coordinating home care; Clinic: Alissa Hunt, [facility], Hospital: Felicitas Campos, [facility], Yoselyn Lange , [facility], Antonio Jeffrey RN. MEDICAL RECORDS The Release of Information (ROSALBA) area is staffed from 8:00 a.m. to 7:00 p.m. and is available for walk in requests from 8:00 a.m. to 4:30 p.m. [facility] is responsible for answering requests for copies of medical records from various requestors such as insurance companies, hospitals and patients. Please note it can take up to 2 weeks to complete your request. [phone] DISABILITY FORMS This category includes any form [...] for a private room? All rooms at [facility] are private. Do you have a social media assistant available? A social media assistant is assigned to our team. How can I help my family plan for my discharge? From the moment a patient is admitted, the [facility] begin to plan for the patient s discharge. Plan to leave at 11am on the day of discharge. Discharge instructions will be given to the patient. The hospital nurse will discuss these with you. Does the [facility] precertify my surgery? Yes. The precertification department at [facility] will notify your insurance carrier. Who should I contact if I anticipate difficulty paying my bill? We want to make sure all patients have access to the quality healthcare services of [facility], and we are committed to working with you and your family to obtain appropriate financial assistance. You may contact the Office of Financial Counseling [phone] weekdays between 8am and 5pm to help determine whether you might qualify for an assistance program. Do I need to bring clothes from home to wear at the hospital? The [facility] will provide you with personal items. You may wish to bring a robe or slippers. Does the [facility] have a designated area for smoking? The [facility] does not permit smoking inside or outside the hospitals including parking areas and sidewalks. If you would like to quit, you can contact a tobacco selling specialist at [phone] or the [place] Tobacco QUIT LINE at [phone]. Where can I find information about visitation, [...] someone after business hours? The office number, [phone] or [phone], is connected to an answering service after 4:30pm each weekday and on weekends, available 08/02. What number should I call if I have billing questions? Please call [facility] Central Business Office at [phone]. Please Note: In regards to group home pain control. You may need narcotic pain [...] call by 4 p.m., please call the [facility] Ambulatory Surgery Unit at . [...] the hospital. Do not wear makeup, nail azeri or hair pins to the hospital. Please [...] a living will or durable power of mergers and acquisitions attorney, please bring a copy of the documents with you. IF YOU USE CPAP BRING YOUR MACHINE WITH YOU TO THE HOSPITAL ALONG WITH THE PRESCRIPTION FOR CPAP PRESSURE LEVELS If you develop any illness, such as a cold, sore throat, cough, or fever, before your surgery, call the [facility] Ambulatory Surgery Unit at and [...] pulp Popsicles Ice Soft drinks Gatorade (Lemon [place] preferred) Clear broth or bouillon Jello Coffee [...] not red, orange, or purple in color. Lemon-cachil dehe is preferred. You may need to pour [...] program. You can also get help through: [facility] Tobacco Dependency [facility], [place] Quit Line, [place] Lung Association, [place] Cancer [...] Anonymous (AA) http://www.aa.org/ Rethinking Drinking https://www.rethinkingdrinking.ni [facility].nih.gov/ National [place] of Alcohol Abuse and Alcoholism https://niaaa.nih.gov/ Sasha Head [phone] -Inpatient, partial hospitalization and outpatient services for [...] Patient Controlled Analgesia (also known as a TOOL DESIGN ENGINEER) A TOOL DESIGN ENGINEER is a pain pump that could [...] surgery documented in this encounter [facility] 02-19-2022 Miscellaneous Notes Addended by: KARINE GALVAN on: 02/19/2022 04:15 PM Modules accepted: Orders INTESTINAL REFERRAL Let the person providing referral info know that you must speak directly to the patient. Our team cannot proceed with intake without communicating directly with the patient. 1) What is your (the patient's) direct phone contact number?- [phone] 2) What is your referring diagnosis? Appendix [...] resources available to cover travel expenses to [facility]? Yes We are currently flexible in offering initial virtual consultations for both surgery and transplant ONLY to patients living in [place], [place], and [place] through May 18, 2022. This may expand to other states depending on where the surgeon who conducts your initial visit is licensed (Dr. Wyatt is licensed in [place], [place], and [place]). If you are living in another state and desire an initial virtual consultation, you may choose to purchase a TissueInformaticsult. (Surgical or transplant evaluations are highly individualized and may be conducted either through your local providers or at the [facility]. The plan for your evaluation will [...] for any pre-surgical testing done at the [facility], and for any post-surgical stay in [place] depending on your post-surgical course. 8) Would you be interested in participating in [facility] Care Online Virtual Visits for the psychosocial screening? - Yes If the patient says no, proceed as normal. If yes, please e-mail the patient and copy the social media assistant on it. She will need them to [...] have been over the past 1 year? [facility] (Submit ALL template in E-health, AND for transplant patients submit MOST RECENT [...] On medication - Psychiatrist (Submit request in [employer]) 15) Do you have a Power of Documentation Writer (POA)? Do you have a Living Will?- No If so, please bring a copy of this to your appointment. 16) For females: When and where was your last mammogram (40 and up) and pap smear (16 and up)? - Needs to be within last year.- PAP- Never had & Mammo- No (Submit request in [employer]) 17) For all patients: When and where was your last dental visit? - Needs to be within last 6 months.- about 6 months ago (Submit request in [employer]) 18) If transplant- Ask patient to obtain their immunization records and have them sent to us via mail/fax.- COVID- Yes The patient has been entered into Edit, chart is created, and request to [employer] for medical records has been generated. Financial clearance has been submitted for rehab/transplant (if on TPN or has dysmotility, submit for both rehab & transplant). Chart will be given to recreation coordinator. Referral received from Dr. Rodney Olivas from [facility] ([phone]) to Dr. Davies. 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 Will call patient to start intake. documented in this encounter [facility] 12-22-2021 Evaluation note Encounter Date Diagnosis [...] Follow up with primary care provider or mandate retail service merchandiser if no improvement of symptoms. 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 [facility] Diagnosis Primary malignant neuroendocrine tumor of appendix Post-operative pain Other acute postoperative pain Primary malignant neuroendocrine tumor of appendix [facility] Diagnosis Primary malignant neuroendocrine tumor of appendix- Primary [facility] Diagnosis Primary malignant neuroendocrine tumor of appendix- Primary [facility] Diagnosis Primary malignant neuroendocrine tumor of appendix [facility] Diagnosis Primary malignant neuroendocrine tumor of appendix [facility] Diagnosis Carcinoid syndrome- Primary SOB (shortness of breath) Shortness of breath Tachycardia Tachycardia, unspecified Antinuclear antibody (HUNTER) titer greater than 1:80 Primary malignant neuroendocrine tumor of appendix documented in this encounter [facility] Primary malignant neuroendocrine tumor of appendix documented in this encounter [facility] Diagnosis Carcinoid syndrome SOB (shortness of breath) Shortness of breath Tachycardia Tachycardia, unspecified Primary malignant neuroendocrine tumor of appendix [facility] Diagnosis Fibromyalgia muscle pain- Primary Mylagia and myositis, unspecified documented [facility] this [facility] Diagnosis Primary malignant neuroendocrine tumor of appendix- Primary [facility] Diagnosis Primary malignant neuroendocrine tumor of appendix documented [facility] Diagnosis 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 Neoplasm of unspecified nature of digestive system documented in [facility] Diagnosis Third trimester state, incidental documented in this encounter [facility]* Diagnosis Elevated liver enzymes- Primary Nonspecific elevation of levels of transaminase or lactic acid dehydrogenase (LDH) documented in this [facility] Diagnosis 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 Neoplasm of unspecified nature of digestive system Diarrhea, unspecified type Primary malignant neuroendocrine tumor of appendix Carcinoid syndrome Tachycardia Tachycardia, unspecified SOB (shortness of breath) Shortness of breath documented [facility] Diagnosis 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 Neoplasm of unspecified nature of digestive system documented in this [facility] assessment information available [facility] Work Phone: Evaluation note* Diagnosis Primary malignant neuroendocrine tumor of appendix- Primary [facility] Diagnosis Primary malignant neuroendocrine tumor of appendix documented in this [facility] Narrative - Reported* Type Description Date Medical History chronic depression Dizzion Other Hospital course Narrative No data available for this section [facility] Hospital Discharge instructions No data available for this section [facility] Progress note No data available for this section [facility] Reason for referral (narrative)* (Routine) Specialty Diagnoses / Procedures Referred By Katharine morales Referred To Contact ISRRAEL Crow [address] [place] [phone] Referral ID Status Reason Start Date Expiration Date Visits Re quested Visits Authorized * (Routine) - New Request Specialty Diagnoses / Procedures Referred By Katharine morales Referred To Contact Procedures PLATELET MONITORING PER PROTOCOL Archie Hugo MD, PhD [address] [place] [address] Referral ID Status Reason Start Date Expiration Date V isits Requested Visits Authorized [id number] New Request 05/22/2022 06/16/2023 1 1 * (Routine) - New Request Specialty Diagnoses / Procedures Referred By Contac t Referred To Contact Procedures DVT/VTE RISK ASSESSMENT Archie Hugo MD, PhD [address] [place] [address] Referral ID Status Reason Start Date Expiration Date V isits Requested Visits Authorized [id number] New Request 05/22/2022 06/16/2023 1 1 * (Routine) - New Request Specialty Diagnoses / Procedures Referred By Contac t Referred To Contact Procedures NO MECHANICAL DVT PROPHYLAXIS Liza Cisneros PA-C [address] [place] [address] Referral ID Status Reason Start Date Expiration Date V isits Requested Visits Authorized [id number] New Request 05/22/2022 06/16/2023 1 1 [facility] for referral (narrative)* Consultation (Routine) - New Request Specialty Diagnoses / Procedures Referred By Contac t Referred To Contact Oncology Diagnoses Primary malignant neuroendocrine tumor of appendix Raina Gomes, IMP[employer] CUSTOMS CLEARING AGENT-SURFACE PLATE FINISHER [address] [place] [address] Andreas Ortega MD, MPH [address] [place] [address] [place] [address] Referral ID Status Reason Start Date Expiration Date V isits Requested Visits Authorized [id number] New Request 06/09/2022 07/04/2023 1 1 * MRI/CAT Scan (Routine) - New Request Specialty Diagnoses / Procedures Referred By Contac t Referred To Contact Diagnoses Primary malignant neuroendocrine tumor of appendix Procedures CT ABDOMEN/PELVIS WITH CONTRAST CHG CT SCAN,ABDOMENT AND PELVIS,W CONTRAST Raina Gomes APRN-[facility] [address] [place] [address] Referral ID Status Reason Start Date Expiration Date V isits Requested Visits Authorized [id number] New Request 06/09/2022 07/04/2023 1 1 Electronically signed by Raina Gomes IMPORT CUSTOMS CLEAR[facility] at 06/09/2022 1:45 PM EST [facility] Consultation (Routine) - New Request Specialty Diagnoses / Procedures Referred By Contac t Referred To Contact Genetics Diagnoses Primary malignant neuroendocrine tumor of appendix Yudelka Moralez APRN-[facility] [address] [place] [address] Erin Stoner [facility] [address] [address] Referral ID Status Reason Start Date Expiration Date V isits Requested Visits Authorized [id number] New Request 07/08/2022 08/02/2023 1 1 Electronically signed by Yudelka Moralez IMP[employer] CUSTOMS CLEARING AGENT-[facility] at 07/08/2022 9:56 AM EST * MRI/CAT Scan (Routine) - New Request Specialty Diagnoses / Procedures Referred By Contac t Referred To Contact Diagnoses Primary malignant neuroendocrine tumor of appendix Procedures CT ABDOMEN/PELVIS WITH AND WITHOUT CONTRAST CHG CT SCAN,ABDOMENT AND PELVIS,Andreas Ellis MD, MPH [address] [address] Referral ID Status Reason Start Date Expiration Date V isits Requested Visits Authorized [id number] New Request 07/08/2022 08/02/2023 1 1 * Radiology (Routine) - New Request Specialty Diagnoses / Procedures Referred By Katharine morales Referred To Contact Diagnoses Primary malignant neuroendocrine tumor of appendix Procedures NUC PET NEUROENDOCRINE CHG NUC THERAPY HYPERTHYROID SUBSEQUENT Yudelka Moralez APRN-[facility] [address] [place] [address] Referral ID Status Reason Start Date Expiration Date V isits Requested Visits Authorized [id number] New Request 07/08/2022 08/02/2023 1 1 [facility] Auth/Cert Specialty Diagnoses / Procedures Referred By Katharine morales Referred To Contact Diagnoses 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] Procedures IA CHG HYPERTHERMIA RX INTRACAV PROBE IA PART REMOVAL COLON W ANASTOMOSIS IA RESECT RECURRENT VIDEO PRODUCER MALIG 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) COLECTOMY PARTIAL OPEN DEBULKING INTRA-ABDOMINAL/PELVIC/RETROPE RITONEAL W/ OMENECTOMY & PELVIC PARA-AORTIC LYMPHADENECTOMY Archie Hugo MD, PhD [address] [place] [address] [facility] [address] [place] [address] Referral ID Status Reason Start Date Expiration Date Visits Re quested Visits Authorized [id number] 1 1 [facility] Summary Purpose Family History No Family History Records Found Relationship Condition Age at Onset Recorded Date/T joel mother Hypertension Unknown Diabetes mellitus Unknown Advance Directives No Advanced Directives Records Found Advance Directive Response Recorded Date/ Time Advance Directives No December 23 11:50am Reason for Referral Specialty Diagnoses / Procedures Referred By Katharine morales Referred To Contact Diagnoses Elevated liver enzymes Procedures TRANSIENT ELASTOGRAPHY Dolores Johnson APRN-SURFACE PLATE FINISHER [address] [place] [address] Referral ID Status Reason Start Date Expiration Date V isits Requested Visits Authorized [id number] New Request 11/26/2023 12/20/2024 1 1 Specialty Diagnoses / Procedures Referred By Contac t Referred To Contact Echocardiography Diagnoses Carcinoid syndrome SOB (shortness of breath) Tachycardia Procedures ECHOCARDIOGRAM IA ECHO HEART XTHORACIC,COMPLETE W DOPPLER Yudelka Moralez APRN-CNP [address] [place], [place] Echocardiography [place] [address] [place] [address] Referral ID Status Reason Start Date Expiration Date V isits Requested Visits Authorized [id number] Auth Not Needed 10/07/2022 11/01/2023 1 1 Specialty Diagnoses / Procedures Referred By Contac t Referred To Contact Diagnoses Primary malignant neuroendocrine tumor of appendix Procedures CT NECK WITH CONTRAST IA CT NECK TISSUE CONTRAST Yudelka Moralez APRN-CNP [address] [place] [phone] Referral ID Status Reason Start Date Expiration Date V isits Requested Visits Authorized [id number] New Request 10/07/2022 11/01/2023 1 1 Specialty Diagnoses / Procedures Referred By Contac t Referred To Contact Diagnoses Carcinoid syndrome SOB (shortness of breath) Tachycardia Primary malignant neuroendocrine tumor of appendix Procedures CT CHEST WITH CONTRAST CHG DIAGNOSTIC COMPUTED TOMOGRAPHY THORAX W/CONTRAST Yudelka Moralez APRN-CNP [address] [place], [place] Referral ID Status Reason Start Date Expiration Date V isits Requested Visits Authorized [id number] New Request 10/07/2022 11/01/2023 1 1 Specialty Diagnoses / Procedures Referred By Contac t Referred To Contact Oncology Diagnoses Carcinoid syndrome SOB (shortness of breath) Tachycardia Yudelka Moralez APRN-CNP [address] [place], [place] Referral ID Status Reason Start Date Expiration Date V isits Requested Visits Authorized [id number] New Request 10/07/2022 11/01/2023 1 1 Specialty Diagnoses / Procedures Referred By Contac t Referred To Contact Rheumatology Diagnoses Antinuclear antibody (UHNTER) titer greater than 1:80 Yudelka Moralez APRN-SURFACE PLATE FINISHER [address] [place], [place] Referral ID Status Reason Start Date Expiration Date V isits Requested Visits Authorized [id number] New Request 10/07/2022 11/01/2023 1 1 Specialty Diagnoses / Procedures Referred By Katharine morales Referred To Contact Diagnoses Primary malignant neuroendocrine tumor of appendix Procedures CT ABDOMEN/PELVIS WITH CONTRAST CHG CT SCAN,ABDOMENT AND PELVIS,W CONTRAST Raina Gomes, [employer] C[employer] CLEARING AGENT-SURFACE PLATE FINISHER [address] [place] [address] Referral ID Status Reason Start Date Expiration Date Visits Re quested Visits Authorized [id number] Closed 03/19/2022 04/13/2023 1 1 Specialty Diagnoses / Procedures Referred By Katharine morales Referred To Contact TRANSPLANT Diagnoses Cancer of appendix (HCC) Procedures CONSULT TO TRANSPLANT CENTER EXPLORATORY LAPAROTOMY CELIOTOMY W/WO BIOPSY SPX Vernon Davies MD [address] [place] [address] [facility] [address] [place] [address] Referral ID Status Reason Start Date Expiration Date Visits Requested Visits Authorized [id number] Pending Review Financial Clearance Required - OON Payor 02/19/2022 02/19/2023 99 [phone] Chief Complaint and Reason for Visit Chief Complaint n63.0 Additional Source Comments INFORMATION SOURCE (unrecogn ized section and content) DATE CREATED AUTHOR 02/19/2021 [employer] [facility] DATE CREATED AUTHOR AUTHOR'S ORGANIZ ATION 12/25/2022 [facility] DATE CREATED AUTHOR AUTHOR'S ORGANIZ ATION 11/13/2023 [facility] EPIC DATE CREATED AUTHOR AUTHOR'S ORGANIZ ATION 02/10/2024 [employer] [facility] DATE CREATED AUTHOR AUTHOR'S ORGANIZ ATION 04/07/2024 [facility] DATE CREATED AUTHOR AUTHOR'S ORGANIZ ATION 04/20/2024 [facility] DATE CREATED AUTHOR AUTHOR'S ORGANIZ ATION 04/21/2024 [facility] REASON FOR VISIT (unrecogniz ed section and content) Reason Comments Referral Request Specialty Diagnoses / Procedures Referred By Contac t Referred To Contact Diagnoses Primary malignant neuroendocrine tumor of appendix Procedures CT ABDOMEN/PELVIS WITH CONTRAST CHG CT SCAN,ABDOMENT AND PELVIS,W CONTRAST Raina Gomes [employer] CLEARING AGENT-SURFACE PLATE FINISHER [address] [facility] [address] [place] [address] Referral ID Status Reason Start Date Expiration Date Visits Re quested Visits Authorized [id number] Closed 03/19/2022 04/13/2023 1 1 Reason Comments New Patient Specialty Diagnoses / Procedures Referred By Contac t Referred To Contact Surgical Oncology Diagnoses New patient - Appendix NET - External: Dr. Timmy Hall - Preferred: Oanh Procedures NEW ISRRAEL SURGERY Self, Self Archie Hugo MD, PhD [address] [place] [address] Referral ID Status Reason Start Date Expiration Date Visits Re quested Visits Authorized [id number] Closed 03/19/2022 04/13/2023 1 1 Reason Comments Follow-up Reason Comments New Patient New diagnosis of sta ge 4 neuroendocrine tumor of the appendix with 1 peritoneal implant referred by Dr. HugoMost recent surgery 05/22/22--recovering well but slowly Lab Review Labs completed today prior to appt Other C-diff infection jus t finished course of vancomycin Specialty Diagnoses / Procedures Referred By Contac t Referred To Contact Oncology Diagnoses Primary malignant neuroendocrine tumor of appendix Raina Gomes [employer] CLEARING AGENT-SURFACE PLATE FINISHER [address] [facility] [address] [place] [address] Andreas Ortega MD, MPH [address] [facility] [address] [place] [address] Referral ID Status Reason Start Date Expiration Date V isits Requested Visits Authorized [id number] New Request 06/09/2022 07/04/2023 1 1 Specialty Diagnoses / Procedures Referred By Contac t Referred To Contact Diagnoses Primary malignant neuroendocrine tumor of appendix Procedures NUC PET NEUROENDOCRINE CHG NUC THERAPY HYPERTHYROID SUBSEQUENT Yudelka Moralez, IMP[employer] CUST[employer] CLEARING AGENT-SURFACE PLATE FINISHER [address] [place] [address] Referral ID Status Reason Start Date Expiration Date Visits Re quested Visits Authorized [id number] Closed 07/08/2022 08/02/2023 1 1 Specialty Diagnoses / Procedures Referred By Katharine t Referred To Contact Diagnoses Primary malignant neuroendocrine tumor of appendix Procedures CT ABDOMEN/PELVIS WITH AND WITHOUT CONTRAST CHG CT SCAN,ABDOMENT AND PELVIS,Andreas Ellis MD, MPH [address] [facility] [place] [address] [place] [address] Referral ID Status Reason Start Date Expiration Date Visits Re quested Visits Authorized [id number] Closed 07/08/2022 08/02/2023 1 1 Reason Comments [...] of appendix Procedures CT NECK WITH CONTRAST IA CT NECK TISSUE CONTRAST Yudelka Moralez APRN-CNP [address] [place] [address] Referral ID Status Reason Start Date Expiration Date Visits Re quested Visits Authorized [id number] Closed 10/07/2022 11/01/2023 1 1 Specialty Diagnoses / Procedures Referred By Katharine morales Referred To Contact Echocardiography Diagnoses Carcinoid syndrome SOB (shortness of breath) Tachycardia Procedures ECHOCARDIOGRAM IA ECHO HEART XTHORACIC,COMPLETE W DOPPLER Yudelka Moralez APRN-[facility] [address] [place] [address] Echocardiography [facility] [address] [place] [address] Referral ID Status Reason Start Date Expiration Date Visits Re quested Visits Authorized [id number] Closed 10/07/2022 11/01/2023 1 1 Specialty Diagnoses / Procedures Referred By Katharine morales Referred To Contact Diagnoses Carcinoid syndrome SOB (shortness of breath) Tachycardia Primary malignant neuroendocrine tumor of appendix Procedures CT CHEST WITH CONTRAST CHG DIAGNOSTIC COMPUTED TOMOGRAPHY THORAX W/CONTRAST Yudelka Moralez, IMP[employer] CUSTOM[employer] CLEARING AGENT-SURFACE PLATE FINISHER [address] [place] [address] Referral ID Status Reason Start Date Expiration Date Visits Re quested Visits Authorized [id number] Closed 10/07/2022 11/01/2023 1 1 Reason Comments New Patient Referred by Dorothy Moralez NP for JR. 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 Joint achy/flu symptoms, tachcardia, + HUNTER. 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 Procedures MRI ABDOMEN/PELVIS WITHOUT CONTRAST IA MRI, ABDOMEN (MRI) IA MRI, PELVIS, W/O CONTRAST Yudelka Moralez, IMP[employer] CLEARING AGENT-SURFACE PLATE FINISHER [address] [place] [address] Referral ID Status Reason Start Date Expiration Date Visits Re quested Visits Authorized [id number] Closed 03/09/2023 04/02/2024 1 1 Reason Comments Routine Visit Referral ID Status Reason Start Date Expiration Date Visits Re quested Visits Authorized [id number] Closed 04/06/2023 04/30/2024 1 1 Reason Comments New Patient Specialty Diagnoses / Procedures Referred By Contac t Referred To Contact Gastroenterology Diagnoses Hepatomegaly Transaminitis Yudelka Moralez, IMP[employer] CUST[employer] CLEARING AGENT-SURFACE PLATE FINISHER [address] [place] [phone] Referral ID Status Reason Start Date Expiration Date V isits Requested Visits Authorized [id number] Pending Review 11/10/2023 12/04/2024 1 1 Reason Comments New Patient Specialty Diagnoses / Procedures Referred By Contac t Referred To Contact Oncology Diagnoses Low grade mucinous neoplasm of appendix Yudelka Moralez IMP[employer] CUSTOMS CLEARING AGENT-SURFACE PLATE FINISHER [address] [place] [phone] Referral ID Status Reason Start Date Expiration Date Visits Re quested Visits Authorized [id number] Closed 11/10/2023 12/04/2024 1 1 Specialty Diagnoses / Procedures Referred By Contac t Referred To Contact Diagnoses 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 Procedures CT ABDOMEN/PELVIS WITH AND WITHOUT CONTRAST CHG CT SCAN,ABDOMENT AND PELVIS,COMBO Yudelka Moralez, IMP[employer] CUST[employer] CLEARING AGENT-SURFACE PLATE FINISHER [address] [place] [phone] Referral ID Status Reason Start Date Expiration Date Visits Re quested Visits Authorized [id number] Closed 11/10/2023 12/04/2024 1 1 Reason Onset Date Comments Advice Only 03/13/2024 Reason Onset Date Comments Change In Symptoms 04/11/2024 Specialty Diagnoses / Procedures Referred By Contac t Referred To Contact Diagnoses Primary malignant neuroendocrine tumor of appendix Procedures CT ABDOMEN/PELVIS WITH AND WITHOUT CONTRAST CHG CT ABDOMEN & PELVIS W/O CONTRST 1/> BODY RE Andreas Ortega MD, MPH [address] [facility] [address] [place] [address] Referral ID Status Reason Start Date Expiration Date Visits Re quested Visits Authorized [id number] Closed 04/11/2024 2025 1 1 Source Comments (unrecognize d section and content) In the event this informatio n is protected by the Federal Confidentiality of Alcohol and Drug Abuse Patient Records regulations: The Federal rules restrict any use of the information to criminally investigate or prosecute any alcohol or drug abuse patient.[facility] Care Teams (unrecognized sec tion and content) Ruffling Hemmer Automatic Relationship Specialty Start Date End Date Erin Sams RN PCP - General 03/19/22 Rodney Olivas MD [address] [place] [phone] Hematology 03/19/22 Ruffling Hemmer Automatic Relationship Specialty Start Date End Date Erin Sams RN PCP - General 03/19/22 Rodney Olivas MD [address] [place] [address] Hematology 03/19/22 Ruffling Hemmer Automatic Relationship Specialty Start Date End Date Erin Sams RN PCP - General 03/19/22 Rodney Olivas MD [address] [place] [address] Hematology 03/19/22 Ruffling Hemmer Automatic Relationship Specialty Start Date End Date Erin Sams RN PCP - General 03/19/22 Rodney Olivas MD [address] [place] [address] Hematology 03/19/22 Ruffling Hemmer Automatic Relationship Specialty Start Date End Date Erin Sams RN PCP - General 03/19/22 Rodney Olivas MD [address] [place] [address] Hematology 03/19/22 Archie Hugo MD, PhD [address] [place] [address] Surgeon Surgical Oncology 07/08/22 Ruffling Hemmer Automatic Relationship Specialty Start Date End Date Erin Sams RN PCP - General 03/19/22 Rodney Olivas MD [address] [place] [address] Hematology 03/19/22 Archie Hugo MD, PhD [address] [place] [address] Surgeon Surgical Oncology 07/08/22 Ruffling Hemmer Automatic Relationship Specialty Start Date End Date Erin Sams RN PCP - General 03/19/22 Rodney Olivas MD [address] [place] [address] Hematology 03/19/22 Archie Hugo MD, PhD [address] [place] [address] Surgeon Surgical Oncology 07/08/22 Ruffling Hemmer Automatic Relationship Specialty Start Date End Date Erin Sams RN PCP - General 03/19/22 Rodney Olivas MD [address] [place] [address] Hematology 03/19/22 Archie Hugo MD, PhD [address] [place] [address] Surgeon Surgical Oncology 07/08/22 Cheikh Coelho MD [address] [place] [address] Electronic Coils Supervisor Cardiovascular Disease 10/07/22 Ruffling Hemmer Automatic Relationship Specialty Start Date End Date Erin Sams RN PCP - General 03/19/22 Rodney Olivas MD [address] [place] [address] Hematology 03/19/22 Archie Hugo MD, PhD [address] [facility] [address] Surgeon Surgical Oncology 07/08/22 Cheikh Coelho MD [address] [place] [address] Electronic Coils Supervisor Cardiovascular Disease 10/07/22 Ruffling Hemmer Automatic Relationship Specialty Start Date End Date Erin Sams RN PCP - General 03/19/22 Rodney Olivas MD [facility] [place] [address] Hematology 03/19/22 Archie Hugo MD, PhD [address] [place] [address] Surgeon Surgical Oncology 07/08/22 Cheikh Coelho MD [address] [place] [address] Electronic Coils Supervisor Cardiovascular Disease 10/07/22 Ruffling Hemmer Automatic Relationship Specialty Start Date End Date Erin Sams RN PCP - General 03/19/22 Rodney Olivas MD [address] [place] [address] Hematology 03/19/22 Archie Hugo MD, PhD [address] [place] [address] Surgeon Surgical Oncology 07/08/22 Cheikh Coelho MD [address] [place] [address], [place] [address] Electronic Coils Supervisor Cardiovascular Disease 10/07/22 Ruffling Hemmer Automatic Relationship Specialty Start Date End Date Erin Sams RN PCP - General 03/19/22 Rodney Olivas MD [facility] [place] [address] Hematology 03/19/22 Archie Hugo MD, PhD [address] [place] [address] Surgeon Surgical Oncology 07/08/22 Cheikh Coelho MD [address] [place] [address] Electronic Coils Supervisor Cardiovascular Disease 10/07/22 Ruffling Hemmer Automatic Relationship Specialty Start Date End Date Erin Sams SURFACE PLATE FINISHER [address] [place] [address] PCP - General 03/10/23 Rodney Olivas MD [address] [place] [address] Hematology 03/19/22 Archie Hugo MD, PhD [address] [place] [address] Surgeon Surgical Oncology 07/08/22 Cheikh Coelho MD [address] [place] [address] Electronic Coils Supervisor Cardiovascular Disease 10/07/22 Ruffling Hemmer Automatic Relationship Specialty Start Date End Date Erin Sams, SURFACE PLATE FINISHER [address] [place] [address] PCP - General 03/10/23 Rodney Olivas MD [address] [place] [address] Hematology 03/19/22 Archie Hugo MD, PhD [address] [place] [address] Surgeon Surgical Oncology 07/08/22 Cheikh Coelho MD [address] [place] [address] Electronic Coils Supervisor Cardiovascular Disease 10/07/22 Ruffling Hemmer Automatic Relationship Specialty Start Date End Date Erin Sams SURFACE PLATE FINISHER [address] [place] [address] PCP - General 03/10/23 Rodney Olivas MD [address] [place] [address] Hematology 03/19/22 Archie Hugo MD, PhD [address] [facility] 8th FLOOR [place] [phone] Surgeon Surgical Oncology 07/08/22 Cheikh Coelho MD [address] FLO[address] [place] [phone] Electronic Coils Supervisor Cardiovascular Disease 10/07/22 Andreas Ortega MD, MPH [address] [facility] 10th [place] [phone] Oncologist Medical Oncology 03/31/23 Ron Ruano DO [address] [facility] [address] [place] [address] Obstetrics & Gynecology 04/06/23 Ruffling Hemmer Automatic Relationship Specialty Start Date End Date Erin Sams SURFACE PLATE FINISHER [address] [place] [address] PCP - General 03/10/23 Rodney Olivas MD [address] [place], [place] [id number] Hematology 03/19/22 Archie Hugo MD, PhD [address] [facility] [place] [address]th [place] [address] Surgeon Surgical Oncology 07/08/22 Cheikh Coelho MD [address] [place] [address] Electronic Coils Supervisor Cardiovascular Disease 10/07/22 Andreas Ortega MD, MPH [address] [place] 10th [place] [address] Oncologist Medical Oncology 03/31/23 Ron Ruano DO [address] [facility] [address] [facility] [place] [phone] Obstetrics & Gynecology 04/06/23 Ruffling Hemmer Automatic Relationship Specialty Start Date End Date Erin Sams, SURFACE PLATE FINISHER [address] [place] [address] PCP - General 03/10/23 Rodney Olivas MD [address] [place] [address] Hematology 03/19/22 Archie Hugo MD, PhD [address] [facility] [place] [address]th [place] [address] Surgeon Surgical Oncology 07/08/22 Cheikh Coelho MD [address] [place] [phone] Electronic Coils Supervisor Cardiovascular Disease 10/07/22 Andreas Ortega MD, MPH [address] [place] 10th [place] [phone] Oncologist Medical Oncology 03/31/23 Ron Ruano DO [address] [facility] [address] [place] [address] Obstetrics & Gynecology 04/06/23 Ruffling Hemmer Automatic Relationship Specialty Start Date End Date Erin Sams, SURFACE PLATE FINISHER [address] [facility] [place] [address] PCP - General 03/10/23 Rodney Olivas MD [address] [place] [address] Hematology 03/19/22 Archie Hugo MD, PhD [address] [place] [address]th [place] [address] Surgeon Surgical Oncology 07/08/22 Cheikh Coelho MD [address] [place] [phone] Electronic Coils Supervisor Cardiovascular Disease 10/07/22 Andreas Ortega MD, MPH [address] [place] 10th [place] [address] Oncologist Medical Oncology 03/31/23 Ron Ruano DO [address] [facility] [address] [place] [address] Obstetrics & Gynecology 04/06/23 Ruffling Hemmer Automatic Relationship Specialty Start Date End Date Erin Sams, SURFACE PLATE FINISHER [address] [facility] [place] [address] PCP - General 03/10/23 Rodney Olivas MD [address] [place] [address] Hematology 03/19/22 Cheikh Coelho MD [address] [place] [address] Electronic Coils Supervisor Cardiovascular Disease 10/07/22 Andreas Ortega MD, MPH [address] [place] 10th [place] [phone] Oncologist Medical Oncology 03/31/23 Ron Ruano DO [address] [facility] [address] [place] [address] Obstetrics & Gynecology 04/06/23 Dolores Johnson, [employer] CLEARING AGENT-SURFACE PLATE FINISHER [address] [place] [address] Home Performance Laborer Certified Nurse Practitioner 02/10/24 Carol Summers MD, PhD [address] [place] 8th [place] [address] Oncologist Medical Oncology 02/10/24 Diego Apodaca MD [address] [place] [address] [address] [place] [address] Gastroenterology 02/16/24 Team Status: Active Member Role Status Dates Erin Sams DRUM TENDER-C Primary Care Provider Active Team Status: Inactive Member Role Status Dates Erin Sams DRUM TENDER-C Primary Care Pr ovider, Attending Provider, Referring Provider Active Start: April 03, 2024 End: April 03, 2024 Ruffling Hemmer Automatic Relationship Specialty Start Date End Date Erin Sams CNP [address] [facility] [place] [phone] PCP - General 03/10/23 Rodney Olivas MD Hematology 03/19/22 Cheikh Coelho MD [address] [facility] 5TH [place] [phone] Electronic Coils Supervisor Cardiovascular Disease 10/07/22 Andreas Ortega MD, MPH [address] [place] [address] [place] [address] Oncologist Medical Oncology 03/31/23 Ron Ruano DO [address] [facility] [address] [place] [address] Obstetrics & Gynecology 04/06/23 Dolores Johnson APRN-SURFACE PLATE FINISHER [address] [place] [address] Home Performance Laborer Certified Nurse Practitioner 02/10/24 Carol Summers MD, PhD [address] [place] [address] [place] [address] Oncologist Medical Oncology 02/10/24 Diego Apodaca MD [address] [place] [phone] Gastroenterology 02/16/24 Ruffling Hemmer Automatic Relationship Specialty Start Date End Date Erin Sams, SURFACE PLATE FINISHER [address] [facility] [place] [address] PCP - General 03/10/23 Rodney Olivas MD Hematology 03/19/22 Cheikh Coelho MD [address] [place] [address] Electronic Coils Supervisor Cardiovascular Disease 10/07/22 Andreas Ortega MD, MPH [address] [place] [address] [place] [address] Oncologist Medical Oncology 03/31/23 Ron Ruano DO [address] [facility] [address] [place] [address] Obstetrics & Gynecology 04/06/23 Dolores Johnson, IMPORT CUST[employer]S CLEARING AGENT-SURFACE PLATE FINISHER [address] [place] [address] Home Performance Laborer Certified Nurse Practitioner 02/10/24 Carol Summers MD, PhD [address] [place] [address] [place] [address] Oncologist Medical Oncology 02/10/24 Diego Apodaca MD [address] [place] [phone] Gastroenterology 02/16/24 Scheduled Active and Recently Administ ered Medications [...] Craig Pagan, RUPERT)1213 (Given - Provider: Yvrose Chamberlain RN)2134 (Given [...] do not crush or chew., Indications: GERD 09 (Given - Provider: Tania Louis RN) 0744 [...] Verify - Provider: Yadira Grier RN)0659 (Epidural [place] Volume/Shift Total - Provider: Yadira Grier RN - Comment: shift total: 175 ml remaining)1105 (Rate/Dose Verify - Provider: Alena Wade RN)1122 (Rate/Dose Verify - Provider: Alena Wade RN)1459 (Rate/Dose Verify - Provider: Alena Wade RN)1555 (Rate/Dose Verify - Provider: Alena Wade RN)1848 (Rate/Dose Verify - Provider: Alena Wade RN)1849 (Rate/Dose Verify - Provider: Alena Wade RN)1910 (Epidural [place] Volume/Shift Total - Provider: Alena Wade RN - Comment: 100mL left in cartridge) 0100 (Epidural [place] Volume/Shift Total - Provider: Craig Pagan RN - Comment: 69ml remain)0307 (Rate/Dose Verify - Provider: Craig Pagan RN)0709 (Rate/Dose Verify - Provider: Tania Louis RN)1030 (Stopped - Provider: Tania Louis RN) dextrose 5% and sodium chloride 0.45% 1,000 ml with potassium chloride 20 mEq premix IV solution (CANCELED) Intravenous, at 50 mL/hr, CONTINUOUS, Starting on Wed05/22/22 at 1315, Until Wed05/28/22 at 1453 0304 (Rate/Dose Verify - Provider: [...] Tania Louis RN)0709 (Rate/Dose Verify - Provider: Tnaia Louis RN)0943 (Rate/Dose Verify - Provider: Tania [...] 0425 (See Alternative - Provider: Craig Pagan, RN)0854 (See Alternative - Provider: Tania Louis, RUPERT) oxyCODONE HCl (ROXICODONE) tablet 10 mg(Linked Group 3) 10 mg, Oral, EVERY 4 HOURS NEEDED, Starting on Wed05/28/22 at 1239, Until Wed05/29/22 at 1402, Severe Pain 1302 (Given - Provider: Yvrose Chamberlain RN)1731 (Given - Provider: Tania Louis RN)2134 (Given - Provider: Craig Pagan, RUPERT) 0425 (Given - Provider: Craig Pagan, RN)0854 (Given - Provider: Tania Louis, RUPERT) phenol [...] Craig Pagan RN)2038 (Stopped - Provider: Craig Pagan, RN) [...] 1239, Until Wed05/29/22 at 1402, Severe Pain Goals (unrecognized section and content) Goals may be documented in a n alternate section FOR RECORDS PERTAINING TO PATIENTS WHO ARE [...] BE BASED ON THE PRIMARY CLINICAL RECORDS. [email or web address] [facility]. provides no warranty or guarantee of the accuracy or completeness of information in this document.
== END 2024-04-25 06:58 | disposition home or self-care (01) ==
LOC: PST 06:57
PROVIDERS: PCP Nurse Practitioner Family; Visit Provider Surgery
DX: Z01.818 Encounter for other preprocedural examination (principal); K52.9 Noninfective gastroenteritis and colitis, unspecified; R19.5 Other fecal abnormalities

== ENCOUNTER 2024-05-03 07:29 | Day surgery (SDC) | payer OTHER, SELFPAY ==
--- OUTSIDE RECORDS SUMMARY | 2024-05-03 07:34 | XMS_ITS | CCD ---
Author Organization [facility]iniSynd Care Team Providers Care Artist And Repertoire Manager Name Role Phone Ava Lundberg Unavailable Unavailable Primary Care Provider Unavailemanuel Sams RN, Erin Primary Care Provider Unavaildevon Olivas MD, Rodney Unavailable Latrell EMERY, Erin Primary Care Provider Unavaildevon Olivas MD, Rodney Unavailable Oanh DUPONT, PhD, Archie C Unavailable Cheikh Coelho MD Unavailable LATRELL ERIN Primary Care Unavailable ISABEL ., DR TIMMY Sibley Admitting Unavaildevon HALL ., DR TIMMY Sibley Consulting Unavaila ble ISABEL ., DR TIMMY Sibley Attending Unavaildevon SAMS, ERIN Primary Care Unavailable LATRELL, ERIN Consulting Unavailable ERIN SAMS Attending Unavailable ERIN SAMS Admitting Unavailable ERIN SAMS Attending Unavailable JILLIAN, DR CAROLYN Quarles Consulting Unavailable LATRELL, ERIN Primary Care Unavailable LATRELL, ERIN Admitting Unavailable LATRELL, ERIN Consulting Unavailable LATRELL, ERIN Primary Care Unavailable IAN LOPEZ Admitting Unavailable IAN LOPEZ Attending Unavailable TIMMY SHAY Consulting Unavailable ELIAS ARMANDO Consulting Unavailable LATRELL, ERIN Primary Care Unavailable JILLIAN, DR CAROLYN Quarles Consulting Unavailable ERIN SAMS Attending Unavailable LATRELL, ERIN Admitting Unavailable LATRELL ERIN Consulting Unavailable LATRELL, ERIN Primary Care Unavailable SARAHI OLIVA Attending Unavailable SARAHI LOIVA Admkwabena Unavailable SARAHI OLIVA Consulting Unavailable LATRELL, ERIN Primary Care Unavailable MISC, DR JACOBO Admitting Unavailable MISC, DR JACOBO Consulting Unavailable MISC, DR JACOBO Attending Unavailable ERIN SAMS Consulting Unavailable ERIN SAMS Attending Unavailable ERIN SAMS Admitting Unavailable LATRELL, ERIN Primary Care Unavailable [...] Unavailable HAY ., DR CARMONA Consulting Unavailable AGUBOSIMJOSÉ LUIS Consulting Unavailable MISC, DR JACOBO Admitting Unavailable LATRELL, ERIN Primary Care Unavailable MISC, DR JACOBO Consulting Unavailable MISC, DR JACOBO Attending Unavailable LATRELL, ERIN Consulting Unavailable LATRELL, ERIN Attending Unavailable LATRELL, ERIN Primary Care Unavailable LATRELL, ERIN Admitting Unavailable Rodney Olivas MD Unavailable Oanh DUPONT, PhD, Archie C Unavailable Cheikh Coelho MD Unavailable Latrell BIANCHI, Erin S Primary Care Provider Unavailable Primary Care Provider Unavailemanuel Hugo MD, PhD, Archie C Unavailable Jordan DUPONT, MPH, [facility] Unavailable [phone] Ron Ruano DO R Unavailable RON RUANO Attending Unavailable LIZBET CAST Attending Unavailable ALDEN, RON Attending Unavailable ALDEN, RON Attending Unavailable RON RUANO Attending Unavailable RON RUANO Attending Unavailable ALDEN, RON Attending Unavailable SERENE, LIZBET Attending Unavailable LIZBET CAST Attending Unavailable LATRELL, ERIN S Primary Care Physician LATRELL, ERIN S Referring Unavailable Diego Apodaca Attending Unavaila ora [facility], Dolores J Unavailable Mireya DUPONT, PhD, [facility] Unavailable Diego Apodaca MD Unavailable [phone] LEFTY Sams-C Erin Dary Primary Care Provider Latrell CLINICAL REHABILITATION SPECIALIST-C Erin Dary Attending Provider LEFTY Sams-C Erin Dary Referring Provider Ron Ruano Admitting Unavailable Ron Ruano Attending Unavailable Latrell, Erin Dary Attending Unavailable Latrell, Erin Dary Referring Unavailable Latrell, Erin Dary Admitting Unavailable Latrell, Erin Dary Primary Care Unavailable Deisy DUPONT, Stevens Unavailable [facility], Dolores J Unavailable MAILE CHAKRABORTY Attending Unavailable LATRELL, ERIN S Referring Unavailable LATRELL, ERIN S Primary Care Unavailable LATRELL, ERIN S Referring Unavailable LATRELL, ERIN S Primary Care Unavailable SELF, SELF Referring Unavailable LATRELL, ERIN S Primary Care Unavailable MORALEZ, YE Referring Unavailable LATRELL, ERIN S Primary Care Unavailable MORALEZ, YE Referring Unavailable MORALEZ, YE Attending Unavailable LATRELL, ERIN S Primary Care Unavailable JORDAN, ANDREAS Referring Unavailable LATRELL, ERIN S Primary Care Unavailable JORDAN, ANDREAS Attending Unavailable MORALEZ, YE Referring Unavailable MORALEZ, [...] ANDREAS Attending Unavailable JORDAN, ANDREAS Referring Unavailable ERIN SAMS S Primary Care Unavailable YUDELKA MORALEZ Attending Unavailable ERIN SAMS S Referring Unavailable ERIN SAMS S Primary Care Unavailable CAROL SUMMERS Attending Unavailable YUDELKA MORALEZ Referring Unavailable ERIN SAMS S Primary Care Unavailable Allergies Allergy Classification Reported Allergen(s) Allergy Type Date of Onset Reaction(s) Facility (20 sources) gabapentin; Translations: [gabapentin] Drug Allergy 10-07-2022 Nausea Only, Diarrhea, Nausea (finding), Diarrhea (finding) [facility] (15 sources) metroNIDAZOLE; Translations: [metronidazole] Drug Allergy 11-26-2023 Nausea (finding) [facility] Medications Current Medications Medication Drug Class(es) Dates Sig (Normalized) Sig (Original) amylase 656494 unt / lipase 91389 unt / protease 221951 unt delayed release oral capsule (20 sources) Start: 11-22-2023 Pancrelipase, Ldm-Rfod-Snzp, (Creon) 95856-724980 units Cap DR Particles Please take one cap with each meal, and one cap with each snack. 120 capsule 11/22/2023 Active Start: 09-10-2022 Pancrelipase, Ctu-Nrgq-Higz, (Creon) 10423-489008 units Cap DR Particles Indications: Exocrine pancreatic insufficiency Take two caps with each meal and one cap with each snack 210 capsule 1 09/10/2022 Active ARIPiprazole (1 source) Atypical Antipsychotic Abilify A ctive busPIRone (1 source) BuSpar Active cetirizine hydrochloride 10 mg oral tablet (1 source) Histamine-1 Receptor Antagonist Start: cetirizine 10 mg Tab Refills(s) 0 Start [...] Oral, BID, 60 EA, Refill(s) 6, [id number], 154, cm, 02/07/24 8:50:00 EDT, Height/Length Dosing [...] Active dicyclomine hydrochloride 10 mg oral capsule (12 sources) Anticholinergic Start: take 1 capsule by [...] Active loperamide hydrochloride 2 mg oral capsule (13 sources) Opioid Agonist Loperamide 2 MG capsule [...] Active ondansetron 8 mg disintegrating oral tablet (20 sources) Serotonin-3 Receptor Antagonist Start: 04-06-2024 End: [...] daily. 0 Active Probiotic Product (PROBIOTIC PO) (10 sources) Probiotic Produc t (PROBIOTIC PO) Take [...] Mild Pain. Active 500 ml albumin human, group home 50 mg/ml injection (1 source) Human Serum [...] Gallium Ga 68 Dotatate (Netspot) 0.5-5.94 millicurie (2 sources) Start: 04-25-2024 End: 04-25-2024 0.5-5.94 millicurie, Intravenous, ONCE, 1 dose, On Wed04/25/24 at 0930 Start: 08-19-2022 End: 08-19-2022 Gallium Ga 68 Dotatate (Nets pot) 0.5-5.94 millicurie 500 ml glucose 50 mg/ml [...] 1-171 mL, Intravenous, ONCE, 1 dose, On Wed02/07/24 at 1400, Extravasation Risk, CT Procedure Start: [...] oral spray 2 spray polyethylene glycol 3350 77405 mg powder for oral solution (2 sources) [...] AD PO) Take by mouth. Active sennosides, group home 8.6 mg oral tablet (3 sources) Start: [...] Episodic Other nutritional; endocrine; and metabolic disorders (20 sources) Obese class I; Translations: [Obesity, unspecified] [...] Episodic Other aftercare (1 source) Other termite helper (current) drug therapy; Translations: [OTH HALFWAY CURRENT DRUG THERAPY] Onset: 04-09-2022 Episodic Other [...] Test Name Value Interpretation Reference Range Facility NUC PET NEUROENDOCRINEon NUC PET NEUROENDOCRINE EXAM: NUC PET NEUROENDOCRINE, 04/25/2024 10:37 AM CLINICAL INDICATIONS: hx of NET,, . COMPARISON: PET/CT scan of August 19, 2022 CT DOSE: DLP: 664 mGy x cm kVp: 120 TECHNIQUE: Approximately 6 minutes following the injection of 3.9 mCi of Gallium-68 Dotatate, the patient was positioned on the PET/CT scanner. A low resolution non-contrast CT was obtained from the top of the head through the mid-femurs for use in attenuation correction and anatomic correlation. PET emission scans of this anatomic region were acquired shortly thereafter. Axial, sagittal, coronal and maximal intensity projection reconstruction images were presented for interpretation. FINDINGS: Head/Neck: Variable degree of normal physiologic tracer activity is seen in the pituitary gland, nasal mucosa, posterior nasopharynx, salivary glands, and thyroid gland. No abnormal foci of tracer accumulation are seen elsewhere in the remainder of the head and neck region. Chest: No tracer avid or tracer negative lung nodules are seen. Tracer trapping in a nonenlarged, morphologically normal-appearing lymph node in the left axilla is likely the result of lymphoscintigraphy effect due to dose extravasation at the injection site in the left antecubital region with delineation of lymphatics. Otherwise no tracer avid lymphadenopathy or tracer avid extranodal lesions are seen throughout the chest. Abdomen/Pelvis: Variable degree of normal physiologic tracer activity is seen in the liver, spleen, bilateral kidneys, stomach, bilateral adrenal glands, several segments of bowel, portions of ureters, urinary bladder and several segments of bowel. Postsurgical changes in the right abdomen secondary to right hemicolectomy with no abnormal foci of tracer accumulation in the surgical bed No abnormal tracer avid lesions are seen throughout the abdomen and pelvis. Musculoskeletal: No abnormal foci of tracer accumulation are seen projecting over the visualized musculoskeletal structures. IMPRESSION: In this patient with provided history of neuroendocrine cancer no abnormal tracer avid lesions are seen in the visualized body to suggest recurrent or metastatic disease Normal [facility] PT Skull base to mid-thighon 04-25-2024 IMPRESSION: In this patient with provided history of neuroendocrine cancer no abnormal tracer avid lesions are seen in the visualized body to suggest recurrent or metastatic disease OLOGY EXAM: NUC PET NEUROENDOCRINE, 04/25/2024 10:37 AM CLINICAL INDICATIONS: hx of NET,, . COMPARISON: PET/CT scan of August 19, 2022 CT DOSE: DLP: 664 mGy x cm kVp: 120 TECHNIQUE: Approximately 6 minutes following the injection of 3.9 mCi of Gallium-68 Dotatate, the patient was positioned on the PET/CT scanner. A low resolution non-contrast CT was obtained from the top of the head through the mid-femurs for use in attenuation correction and anatomic correlation. PET emission scans of this anatomic region were acquired shortly thereafter. Axial, sagittal, coronal and maximal intensity projection reconstruction images were presented for interpretation. FINDINGS: Head/Neck: Variable degree of normal physiologic tracer activity is seen in the pituitary gland, nasal mucosa, posterior nasopharynx, salivary glands, and thyroid gland. No abnormal foci of tracer accumulation are seen elsewhere in the remainder of the head and neck region. Chest: No tracer avid or tracer negative lung nodules are seen. Tracer trapping in a nonenlarged, morphologically normal-appearing lymph node in the left axilla is likely the result of lymphoscintigraphy effect due to dose extravasation at the injection site in the left antecubital region with delineation of lymphatics. Otherwise no tracer avid lymphadenopathy or tracer avid extranodal lesions are seen throughout the chest. Abdomen/Pelvis: Variable degree of normal physiologic tracer activity is seen in the liver, spleen, bilateral kidneys, stomach, bilateral adrenal glands, several segments of bowel, portions of ureters, urinary bladder and several segments of bowel. Postsurgical changes in the right abdomen secondary to right hemicolectomy with no abnormal foci of tracer accumulation in the surgical bed No abnormal tracer avid lesions are seen throughout the abdomen and pelvis. Musculoskeletal: No abnormal foci of tracer accumulation are seen projecting over the visualized musculoskeletal structures. RADIOLOGY Marcella Sharma MD - 04/25/2024 EXAM: NUC PET NEUROENDOCRINE, 04/25/2024 10:37 AM CLINICAL INDICATIONS: hx of NET,, . COMPARISON: PET/CT scan of August 19, 2022 CT DOSE: DLP: 664 mGy x cm kVp: 120 TECHNIQUE: Approximately 6 minutes following the injection of 3.9 mCi of Gallium-68 Dotatate, the patient was positioned on the PET/CT scanner. A low resolution non-contrast CT was obtained from the top of the head through the mid-femurs for use in attenuation correction and anatomic correlation. PET emission scans of this anatomic region were acquired shortly thereafter. Axial, sagittal, coronal and maximal intensity projection reconstruction images were presented for interpretation. FINDINGS: Head/Neck: Variable degree of normal physiologic tracer activity is seen in the pituitary gland, nasal mucosa, posterior nasopharynx, salivary glands, and thyroid gland. No abnormal foci of tracer accumulation are seen elsewhere in the remainder of the head and neck region. Chest: No tracer avid or tracer negative lung nodules are seen. Tracer trapping in a nonenlarged, morphologically normal-appearing lymph node in the left axilla is likely the result of lymphoscintigraphy effect due to dose extravasation at the injection site in the left antecubital region with delineation of lymphatics. Otherwise no tracer avid lymphadenopathy or tracer avid extranodal lesions are seen throughout the chest. Abdomen/Pelvis: Variable degree of normal physiologic tracer activity is seen in the liver, spleen, bilateral kidneys, stomach, bilateral adrenal glands, several segments of bowel, portions of ureters, urinary bladder and several segments of bowel. Postsurgical changes in the right abdomen secondary to right hemicolectomy with no abnormal foci of tracer accumulation in the surgical bed No abnormal tracer avid lesions are seen throughout the abdomen and pelvis. Musculoskeletal: No abnormal foci of tracer accumulation are seen projecting over the visualized musculoskeletal structures. IMPRESSION IMPRESSION: In this patient with provided history of neuroendocrine cancer no abnormal tracer avid lesions are seen in the visualized body to suggest recurrent or metastatic disease [facility] Radiology Study observation (narrative) [facility] PT Skull base to mid-thighOr dered By: Marcella Sharma on 04-25-[address] [facility] [address] ABDOMEN/PELVIS WITH AND W ITHOUT CONTRASTon [...] bowel loops. No focal bowel wall thickening. Peritoneum/retroperit oneum: No ascites. Lymph nodes: No enlarged or morphologically abnormal lymph nodes. Vasculature: The abdominal aorta is normal in course and caliber. Patent celiac and superior mesenteric arteries. Patent portal, splenic, and superior mesenteric veins. Bladder: Normal. Pelvic Organs: Normal. Body Wall: Normal. Bones: Normal for patient age. No aggressive lesion. IMPRESSION: No evidence of metastatic disease in the abdomen and pelvis. Normal [facility] CT Abdomen and Pelvis WO and W [...] bowel loops. No focal bowel wall thickening. Peritoneum/retroperit oneum: No ascites. Lymph nodes: No enlarged or [...] bowel loops. No focal bowel wall thickening. Peritoneum/retroperit oneum: No ascites. Lymph nodes: No enlarged or morphologically abnormal lymph nodes. Vasculature: The abdominal aorta is normal in course and caliber. Patent celiac and superior mesenteric arteries. Patent portal, splenic, and superior mesenteric veins. Bladder: Normal. Pelvic Organs: Normal. Body Wall: Normal. Bones: Normal for patient age. No aggressive lesion. IMPRESSION IMPRESSION: No evidence of metastatic disease in the abdomen and pelvis. [facility] Radiology Study observation (narrative) [facility] CT Abdomen and Pelvis WO and W contrast IVOrdered By: Mandi Montiel on 04-13-2024 [facility] Work Phone: US breast BI limitedon 04-03 US breast BI limited [facility] [place] [address] [place] [address] Ultrasound Report Signed Patient: Zainab Mcclure MR#: [id number] : 1995 Acct:[id number] Age/Sex: 28 / F ADM Date: 04/03/24 Loc: [facility] Room: Type: [facility] Attending Dr: Erin Sams CLINICAL REHABILITATION SPECIALIST-C Ordering Provider: Erin Sams CNP Date of Service: 04/03/24 US/US breast BI limited: N63.0 Copies to: Erin Sams CNP BILATERAL COMPLETE BREAST ULTRASOUND CLINICAL DATA: Bilateral palpable breast lumps COMPARISON: September 23, 2022 mammogram and ultrasound from [facility] Real-time ultrasound evaluation of all 4 quadrants [...] Beata Anthony M.D.04/03/2024 12:09 PM Dictation Location: [facility] Tech: Johana Edmonds Transcribed By: JOSE ELIAS 04/03/24 1209 Dictated By: Beata Anthony MD 04/03/24 0958 Signed By: 04/03/24 1209 Normal [facility] CT ABDOMEN/PELVIS WITH AND W [...] error, please notify the sender immediately at [phone] and permanently delete the original report and destroy any copies or printouts. Normal [facility] Ambulatory Visit Summaryon 0 02-07-2024 Ambulatory Visit [...] Unspecified abdominal pain Invalid Interpretation Code Diarrhea [facility] CBC AND ELECTRONIC DIFFon Basophils (Bld) [#/Vol] 0.06 10*3/uL Normal 0.00-0.15 [facility] Comment on above: Performed By: #### P SD, SIMFXB, PSE #### [facility] (DEFAULT) [address] [address] Basophils/100 WBC (Bld) 0.9 % Normal [facility] Comment on above: Performed By: #### P SD, SIMFXB, PSE #### [facility] (DEFAULT) [address] [address] DIFF STATUS Electronic Differential Normal [facility] Comment on above: Performed By: #### P SD, SIMFXB, PSE #### [facility] (DEFAULT) [address] [address] Eosinophils (Bld) [#/Vol] 0.12 10*3/uL Normal 0.00-0.42 [facility] Comment on above: Performed By: #### P SD, SIMFXB, PSE #### [facility] (DEFAULT) [address] [place] [address] Eosinophils/100 WBC (Bld) 1.8 % Normal [facility] Comment on above: Performed By: #### P SD, SIMFXB, PSE #### [facility] (DEFAULT) [address] [place] [address] Hematocrit (Bld) [Volume fraction] 38.9 % Normal 34.9-44.3 [facility] Comment on above: Performed By: #### P SD, SIMFXB, PSE #### [facility] (DEFAULT) [address] [place] [address] Hemoglobin (Bld) [Mass/Vol] 12.8 g/dL Normal 11.4-15.2 [facility] Comment on above: Performed By: #### P SD, SIMFXB, PSE #### [facility] (DEFAULT) [address] [address] Immature Grans % 0.1 % Normal [facility] Comment on above: Performed By: #### P SD, SIMFXB, PSE #### [facility] (DEFAULT) [address] [address] Immature Grans Absolute < Normal <=0.08 [facility] Comment on above: Performed By: #### P SD, SIMFXB, PSE #### [facility] (DEFAULT) [address] [place] [address] Lymphocytes (Bld) [#/Vol] 2.05 10*3/uL Normal 1.16-3.51 [facility] Comment on above: Performed By: #### P SD, SIMFXB, PSE #### [facility] (DEFAULT) [address] [address] Lymphocytes/100 WBC (Bld) 30.3 % Normal [facility] Comment on above: Performed By: #### P SD, SIMFXB, PSE #### [facility] (DEFAULT) [address] [address] MCV (RBC) [Entitic vol] 86.6 fL Normal 79.6-97.7 [facility] Comment on above: Performed By: #### P SD, SIMFXB, PSE #### [facility] (DEFAULT) [address] [address] Mean Cell Hgb 28.5 pg Normal 25.9-33.9 [facility] Comment on above: Performed By: #### P SD, SIMFXB, PSE #### [facility] (DEFAULT) [address] [address] Mean Cell Hgb Conc 32.9 g/dL Normal 31.4-35.9 [facility] Comment on above: Performed By: #### P SD, SIMFXB, PSE #### [facility] (DEFAULT) [address] [address] Monocytes (Bld) [#/Vol] 0.43 10*3/uL Normal 0.22-0.87 [facility] Comment on above: Performed By: #### P SD, SIMFXB, PSE #### [facility] (DEFAULT) [address] [address] Monocytes/100 WBC (Bld) 6.4 % Normal [facility] Comment on above: Performed By: #### P SD, SIMFXB, PSE #### [facility] (DEFAULT) [address] [address] Nucleated RBC 0.0 /100 WBC Normal <=0.2 [facility] Comment on above: Performed By: #### P SD, SIMFXB, PSE #### [facility] (DEFAULT) [address] [address] Platelet mean volume (Bld) [Entitic vol] 9.5 fL Normal 8.5-12.2 [facility] Comment on above: Performed By: #### P SD, SIMFXB, PSE #### [facility] (DEFAULT) [address] [address] Platelets (Bld) [#/Vol] 307 10*3/uL Normal 150-393 [facility] Comment on above: Performed By: #### P SD, SIMFXB, PSE #### [facility] (DEFAULT) [address] [address] RBC (Bld) [#/Vol] 4.49 10*6/uL Normal 3.91-5.04 [facility] Comment on above: Performed By: #### P SD, SIMFXB, PSE #### [facility] (DEFAULT) [address] [place] [address] RBC Distribution 12.0 % Normal 10.8-14.9 [facility] Comment on above: Performed By: #### P SD, SIMFXB, PSE #### [facility] (DEFAULT) [address] [address] Segs + Bands Auto 60.5 % Normal [facility] Comment on above: Performed By: #### P SD, SIMFXB, PSE #### [facility] (DEFAULT) [address] [address] Segs + Bands,Absolute Auto 4.09 K/uL Normal 1.64-7.28 [facility] Comment on above: Performed By: #### P SD, SIMFXB, PSE #### [facility] (DEFAULT) [address] [address] WBC (Bld) [#/Vol] 6.76 10*3/uL Normal 3.99-11.19 [facility] Comment on above: Performed By: #### P SD, SIMFXB, PSE #### [facility] (DEFAULT) [address] [address] CEAon 02-07-2024 Cea <2.0 Normal <=5.0 [facility] Comment on above: Result Comment: This test was performed on the [employer] Immunoassay platform which is a 2-step sandwich chemiluminescent immunoassay. It is important to note that assays using different manufacturers and/or methods may not be comparable. Performed By: #### F ERIB, TSH #### [facility] (DEFAULT) [address] [place] [address] CHROMOGRANIN Aon 02-07-2024 Chromogranin A <20 Normal <93 [facility] Comment on above: Result Comment: ADDITIONAL INFORMATION The testing method is a homogeneous time-resolved immunofluorescent assay manufactured by [employer] and performed on the [employer] KrAnatoleor Compact Plus. Values obtained with different assay [...] examination and other findings. Test Performed by: [place] [address] Applications Engineer Manufacturing: Jami Sher Ph.D.; CLIA# [id number] Performed By: #### P SD, SIMFXB, PSE #### [facility] (DEFAULT) [address] [address] COMPREHENSIVE METABOLIC PANE Shamir 02-07-2024 Albumin [Mass/Vol] 4.8 g/dL Normal 3.5-5.0 [facility] Comment on above: Performed By: #### P SD, SIMFXB, PSE #### [facility] (DEFAULT) [address] [address] ALP [Catalytic activity/Vol] 56 U/L Normal 32-126 [facility] Comment on above: Performed By: #### P SD, SIMFXB, PSE #### [facility] (DEFAULT) [address] [address] ALT [Catalytic activity/Vol] 41 U/L Normal 9-48 [facility] Comment on above: Performed By: #### P SD, SIMFXB, PSE #### [facility] (DEFAULT) [address] [place] [address] Anion gap [Moles/Vol] 11 mmol/L Normal 7-17 [facility] Comment on above: Performed By: #### P SD, SIMFXB, PSE #### [facility] (DEFAULT) [address] [place] [address] 24685 AST [Catalytic activity/Vol] 26 U/L Normal 10-39 [facility] Comment on above: Performed By: #### P SD, SIMFXB, PSE #### [facility] (DEFAULT) [address] [place] [address] 98188 Bilirubin [Mass/Vol] 0.7 mg/dL Normal <1.5 [facility] Comment on above: Performed By: #### P SD, SIMFXB, PSE #### [facility] (DEFAULT) [address] [place] [address] 42034 Calcium [Mass/Vol] 9.5 mg/dL Normal 8.6-10.5 [facility] Comment on above: Performed By: #### P SD, SIMFXB, PSE #### [facility] (DEFAULT) [address] [place] [address] 73643 Chloride [Moles/Vol] 98 mmol/L Normal 98-108 [facility] Comment on above: Performed By: #### P SD, SIMFXB, PSE #### [facility] (DEFAULT) [address] [place] [address] 38375 CO2 [Moles/Vol] 29 mmol/L Normal 21-31 [facility] Comment on above: Performed By: #### P SD, SIMFXB, PSE #### [facility] (DEFAULT) [address] [place] [address] 92362 Creatinine [Mass/Vol] 0.58 mg/dL Normal 0.50-1.20 [facility] Comment on above: Performed By: #### P SD, SIMFXB, PSE #### [facility] (DEFAULT) [address] [place] [address] 18852 eGFR, CKD-EPI, Female > Normal >=60 [facility] Comment on above: Result Comment: Repo rted eGFR is based on the CKD-EPI 2020 equation using creatinine, age, and sex. Performed By: #### P SD, SIMFXB, PSE #### [facility] (DEFAULT) [address] [place] [address] 58696 Glucose [Mass/Vol] 108 mg/dL High 70-99 [facility] Comment on above: Performed By: #### P SD, SIMFXB, PSE #### [facility] (DEFAULT) [address] [place] [address] 64737 Osmolality [Osmolality] 280 mosm/kg Normal 278-305 [facility] Comment on above: Performed By: #### P SD, SIMFXB, PSE #### [facility] (DEFAULT) [address] [place] [address] 89754 Potassium [Moles/Vol] 4.0 mmol/L Normal 3.5-5.0 [facility] Comment on above: Performed By: #### P SD, SIMFXB, PSE #### [facility] (DEFAULT) [address] [place] [address] 59491 Protein [Mass/Vol] 7.5 g/dL Normal 6.4-8.3 [facility] Comment on above: Performed By: #### P SD, SIMFXB, PSE #### [facility] (DEFAULT) [address] [place] [address] 55703 Sodium [Moles/Vol] 134 mmol/L Low 135-145 [facility] Comment on above: Performed By: #### P SD, SIMFXB, PSE #### [facility] (DEFAULT) [address] [place] [address] 73337 Urea nitrogen [Mass/Vol] 6 mg/dL Low 7-25 [facility] Comment on above: Performed By: #### P SD, SIMFXB, PSE #### [facility] (DEFAULT) [address] [place] [address] 61997 Urea nitrogen/Creatinine [Mass ratio] 10 mg/mg Normal [facility] Comment on above: Performed By: #### P SD, SIMFXB, PSE #### [facility] (DEFAULT) [address] [place] [address] 23967 Gastroenterology Office/Clin ic Noteon 02-07-2024 Gastroenterology Office/Clinic Note Gastroenterology Office/Clinic Note Chief Complaint diarrhea HPI Staff Patient is a 28 year old female who was referred by [facility] for diarrhea w/associated abd pain. Hx C. Diff. Hx appendectomy, hemicolectomy and C. section. 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 Last colon 03/2022- prior to the hemicolectomy @ [facility]. Has a pelvic CT later this week at [facility]. PCP gave Augmentin in September and [...] and reactive mesothelial proliferation. CT 12/22/23 @ [facility]: Impression: 1. Postsurgical changes consistent with partial [...] visualized on this exam. Labs 12/02/23 @ [facility]: TSH: 3.169 AST: 38 (H) ALT 93 [...] other infect (more content not included)... Normal [facility] Comment on above: Result Comment: Elec tronically Signed By: Paulie DUPONT, Diego Umana\.br\Date and Time Signed: 02/07/24 09:35 EDT LACTATE DEHYDROGENASEon 01-17 LD Total 110 U/L Normal 100-190 [facility] Comment on above: Performed By: #### P SD, SIMFXB, PSE #### [facility] (DEFAULT) [address] [place] [address] TCCP - GOLDon 02-07-2024 CANCER CARE PROTOCOL Done Normal [facility] Comment on above: Performed By: #### F ERIB, TSH #### [facility] (DEFAULT) [address] [place] [address] 56686 Performed By: #### P SD, SIMFXB, PSE #### [facility] (DEFAULT) [address] [place] [address] 58641 ALPHA 1 ANTITRYPSINon 2023 Alpha 1 antitrypsin [Mass/Vol] 125 mg/dL 84 - 218 mg/dL [facility] Alpha 1 Antitrypsin 125 mg/dL Normal 84-218 [facility] Comment on above: Performed By: #### Q IMM, A1AT, CERP #### [facility] (DEFAULT) [address] [address] [id number] PHENOTYP Timothy 11-26-2023 ALPHA 1 ANTITRYPSIN PHENOTYPE MM Normal [facility] Comment on above: Result Comment: A si ngle M isoform is detected. In the context of a normal inmas-8-tvwpnozhthn concentration, this is consistent with an MM phenotype. ADDITIONAL INFORMATION Method: Isoelectric Focusing, This assay identifies the phenotype of the circulating zsqtv-9-bwomrlhperp (A1A) protein. If the patient is on replacement therapy or has been recently transfused, the phenotype will detect patient and replacement or transfused plasma A1A protein. This test also cannot detect a null allele which could be responsible for an A1A deficiency. Performed By: #### P SD, SIMFXB, PSE #### [facility] (DEFAULT) [address] [address] Imkhl-8-Yxpqzputuqw S Allele 120 mg/dL Normal 100-190 [facility] Comment on above: Result Comment: ADDITIONAL INFORMATION Method: Nephelometry Test Performed by: [place] [address] [employer]: Ed Russo M.D. Ph.D.; CLIA# [id number] Performed By: #### P SD, SIMFXB, PSE #### [facility] (DEFAULT) [address] [address] HUNTER SCREEN IFAon 11-26-2023 Anti Nuclear Antibody Pattern Homogenous/Diffuse Normal [facility] Comment on above: Performed By: #### P SD, SIMFXB, PSE #### [facility] (DEFAULT) [address] [address] Antinuclear Antibody, IFA Positive Abnormal Negative [facility] Comment on above: Performed By: #### P SD, SIMFXB, PSE #### [facility] (DEFAULT) [address] [place] [address] 02042 Quant Antinuclear Antibody 1:80 Abnormal (none) [facility] Comment on above: Performed By: #### P SD, SIMFXB, PSE #### [facility] (DEFAULT) [address] [place] [address] 92685 ANTI MITOCHONDRIAL ANTIBODYo n 11-26-2023 Anti-Mitochondrial Antibody Negative Normal Negative [facility] Comment on above: Performed By: #### P SD, SIMFXB, PSE #### [facility] (DEFAULT) [address] [place] [address] 32713 ANTI SMOOTH MUSCLE ANTIBODYo n 11-26-2023 Smooth Muscle Antibody Negative Normal Negative [facility] Comment on above: Performed By: #### P SD, SIMFXB, PSE #### [facility] (DEFAULT) [address] [place] [address] 49294 CBC AND ELECTRONIC DIFFon Basophils (Bld) [#/Vol] 0.05 10*3/uL Normal 0.00-0.15 [facility] Comment on above: Performed By: #### P SD, SIMFXB, PSE #### [facility] (DEFAULT) [address] [place] [address] 98057 Basophils/100 WBC (Bld) 0.6 % Normal [facility] Comment on above: Performed By: #### P SD, SIMFXB, PSE #### [facility] (DEFAULT) [address] [place] [address] 70838 DIFF STATUS Electronic Differential Normal [facility] Comment on above: Performed By: #### P SD, SIMFXB, PSE #### [facility] (DEFAULT) [address] [place] [address] 76018 Eosinophils (Bld) [#/Vol] 0.15 10*3/uL Normal 0.00-0.42 [facility] Comment on above: Performed By: #### P SD, SIMFXB, PSE #### [facility] (DEFAULT) [address] [address] Eosinophils/100 WBC (Bld) 1.9 % Normal [facility] Comment on above: Performed By: #### P SD, SIMFXB, PSE #### [facility] (DEFAULT) [address] [address] Hematocrit (Bld) [Volume fraction] 42.6 % Normal 34.9-44.3 [facility] Comment on above: Performed By: #### P SD, SIMFXB, PSE #### [facility] (DEFAULT) [address] [address] Hemoglobin (Bld) [Mass/Vol] 13.6 g/dL Normal 11.4-15.2 [facility] Comment on above: Performed By: #### P SD, SIMFXB, PSE #### [facility] (DEFAULT) [address] [address] Immature Grans % 0.5 % Normal [facility] Comment on above: Performed By: #### P SD, SIMFXB, PSE #### [facility] (DEFAULT) [address] [address] Immature Grans Absolute 0.04 K/uL Normal <=0.08 [facility] Comment on above: Performed By: #### P SD, SIMFXB, PSE #### [facility] (DEFAULT) [address] [address] Lymphocytes (Bld) [#/Vol] 2.06 10*3/uL Normal 1.16-3.51 [facility] Comment on above: Performed By: #### P SD, SIMFXB, PSE #### [facility] (DEFAULT) [address] [address] Lymphocytes/100 WBC (Bld) 25.8 % Normal [facility] Comment on above: Performed By: #### P SD, SIMFXB, PSE #### [facility] (DEFAULT) [address] [place] [address] 06109 MCV (RBC) [Entitic vol] 88.9 fL Normal 79.6-97.7 [facility] Comment on above: Performed By: #### P SD, SIMFXB, PSE #### [facility] (DEFAULT) [address] [place] [address] 58252 Mean Cell Hgb 28.4 pg Normal 25.9-33.9 [facility] Comment on above: Performed By: #### P SD, SIMFXB, PSE #### [facility] (DEFAULT) [address] [address] Mean Cell Hgb Conc 31.9 g/dL Normal 31.4-35.9 [facility] Comment on above: Performed By: #### P SD, SIMFXB, PSE #### [facility] (DEFAULT) [address] [place] [address] 37236 Monocytes (Bld) [#/Vol] 0.40 10*3/uL Normal 0.22-0.87 [facility] Comment on above: Performed By: #### P SD, SIMFXB, PSE #### [facility] (DEFAULT) [address] [address] Monocytes/100 WBC (Bld) 5.0 % Normal [facility] Comment on above: Performed By: #### P SD, SIMFXB, PSE #### [facility] (DEFAULT) [address] [address] Nucleated RBC 0.0 /100 WBC Normal <=0.2 [facility] Comment on above: Performed By: #### P SD, SIMFXB, PSE #### [facility] (DEFAULT) [address] [address] Platelet mean volume (Bld) [Entitic vol] 10.2 fL Normal 8.5-12.2 [facility] Comment on above: Performed By: #### P SD, SIMFXB, PSE #### [facility] (DEFAULT) [address] [place] [address] 15888 Platelets (Bld) [#/Vol] 379 10*3/uL Normal 150-393 [facility] Comment on above: Performed By: #### P SD, SIMFXB, PSE #### [facility] (DEFAULT) [address] [place] [address] 58172 RBC (Bld) [#/Vol] 4.79 10*6/uL Normal 3.91-5.04 [facility] Comment on above: Performed By: #### P SD, SIMFXB, PSE #### [facility] (DEFAULT) [address] [place] [address] 75137 RBC Distribution 12.8 % Normal 10.8-14.9 [facility] Comment on above: Performed By: #### P SD, SIMFXB, PSE #### [facility] (DEFAULT) [address] [place] [address] 69438 Segs + Bands Auto 66.2 % Normal [facility] Comment on above: Performed By: #### P SD, SIMFXB, PSE #### [facility] (DEFAULT) [address] [place] [address] 37860 Segs + Bands,Absolute Auto 5.27 K/uL Normal 1.64-7.28 [facility] Comment on above: Performed By: #### P SD, SIMFXB, PSE #### [facility] (DEFAULT) [address] [place] [address] 54385 WBC (Bld) [#/Vol] 7.97 10*3/uL Normal 3.99-11.19 [facility] Comment on above: Performed By: #### P SD, SIMFXB, PSE #### [facility] (DEFAULT) [address] [place] [address] 51124 CERULOPLASMINon 11-26-2023 Ceruloplasmin [Mass/Vol] 31 mg/dL 20 - 60 mg/dL [facility] Ceruloplasmin 31 mg/dL Normal 20-60 [facility] Comment on above: Performed By: #### Q IMM, A1AT, CERP #### [facility] (DEFAULT) [address] [place] [address] CHEM 7 (LYTES,BUN,CREA,GLUC) on 11-26-2023 Anion gap [Moles/Vol] 17 mmol/L 7 - 17 mmol/L [facility] Chloride [Moles/Vol] 102 mmol/L 98 - 10 8 [facility] CO2 [Moles/Vol] 26 mmol/L 21 - 31 mmol/L [facility] Creatinine [Mass/Vol] 0.55 mg/dL 0.50 - 1.20 mg/dL [facility] eGFR, CKD-EPI, Female - PINF [facility] Comment on above: Reported eGFR is bas ed on the CKD-EPI 2020 equation using creatinine, age, and sex. Glucose [Mass/Vol] 123 mg/dL High 70 - 99 mg/dL [facility] Osmolality Calc [Osmolality] 294 [facility] Potassium [Moles/Vol] 3.8 mmol/L 3.5 - 5.0 mmol/L [facility] Sodium [Moles/Vol] 141 mmol/L 135 - 145 mmol/L [facility] Urea nitrogen [Mass/Vol] 7 mg/dL 7 - 25 mg/dL [facility] Urea nitrogen/Creatinine [Mass ratio] 13 mg/mg [facility] Anion gap [Moles/Vol] 17 mmol/L Normal 7-17 [facility] Comment on above: Performed By: #### I RBC, HFP, CHM7 #### [facility] (DEFAULT) [address] [place] [address] Chloride [Moles/Vol] 102 mmol/L Normal 98-108 [facility] Comment on above: Performed By: #### I RBC, HFP, CHM7 #### [facility] (DEFAULT) [address] [place] [address] CO2 [Moles/Vol] 26 mmol/L Normal 21-31 [facility] Comment on above: Performed By: #### I RBC, HFP, CHM7 #### [facility] (DEFAULT) [address] [place] [address] 14221 Creatinine [Mass/Vol] 0.55 mg/dL Normal 0.50-1.20 [facility] Comment on above: Performed By: #### I RBC, HFP, CHM7 #### [facility] (DEFAULT) [address] [place] [address] 65958 eGFR, CKD-EPI, Female > Normal >=60 [facility] Comment on above: Result Comment: Repo rted eGFR is based on the CKD-EPI 2020 equation using creatinine, age, and sex. Performed By: #### I RBC, HFP, CHM7 #### [facility] (DEFAULT) [address] [place] [address] 88635 Glucose [Mass/Vol] 123 mg/dL High 70-99 [facility] Comment on above: Performed By: #### I RBC, HFP, CHM7 #### [facility] (DEFAULT) [address] [place] [address] 12203 Osmolality [Osmolality] 294 mosm/kg Normal 278-305 [facility] Comment on above: Performed By: #### I RBC, HFP, CHM7 #### [facility] (DEFAULT) [address] [place] [address] 27382 Potassium [Moles/Vol] 3.8 mmol/L Normal 3.5-5.0 [facility] Comment on above: Performed By: #### I RBC, HFP, CHM7 #### [facility] (DEFAULT) [address] [place] [address] 67079 Sodium [Moles/Vol] 141 mmol/L Normal 135-145 [facility] Comment on above: Performed By: #### I RBC, HFP, CHM7 #### [facility] (DEFAULT) [address] [place] [address] 61895 Urea nitrogen [Mass/Vol] 7 mg/dL Normal 7-25 [facility] Comment on above: Performed By: #### I RBC, HFP, CHM7 #### [facility] (DEFAULT) [address] [place] [address] 34356 Urea nitrogen/Creatinine [Mass ratio] 13 mg/mg Normal [facility] Comment on above: Performed By: #### I RBC, HFP, CHM7 #### [facility] (DEFAULT) [address] [place] [address] 03220 FERRITINon 11-26-2023 Ferritin [Mass/Vol] 26.5 ng/mL 7.3 - 27 0.7 ng/mL [facility] Interpretation and review of laboratory results Normal [facility] Ferritin [Mass/Vol] 26.5 ng/mL Normal 7.3-270.7 [facility] Comment on above: Performed By: #### F ERIB, TSH #### [facility] (DEFAULT) [address] [place] [address] 68015 HEPATIC FUNCTION PANELon Albumin [Mass/Vol] 4.7 g/dL 3.5 - 5.0 g/dL [facility] ALP [Catalytic activity/Vol] 67 U/L 32 - 126 U/L [facility] ALT [Catalytic activity/Vol] 68 U/L High 9 - 48 U/L [facility] AST [Catalytic activity/Vol] 42 U/L High 10 - 39 U/L [facility] Bilirubin [Mass/Vol] 0.5 mg/dL NINF - 1.5 mg/dL [facility] Bilirubin.direct [Mass/Vol] 0.1 mg/dL NINF - 0.3 mg/dL [facility] Protein [Mass/Vol] 7.4 g/dL 6.4 - 8.3 g/dL [facility] Albumin [Mass/Vol] 4.7 g/dL Normal 3.5-5.0 [facility] Comment on above: Performed By: #### F ERIB, TSH #### [facility] (DEFAULT) [address] [place] [address] 94722 ALP [Catalytic activity/Vol] 67 U/L Normal 32-126 [facility] Comment on above: Performed By: #### F ERIB, TSH #### [facility] (DEFAULT) [address] [place] [address] 23291 ALT [Catalytic activity/Vol] 68 U/L High 9-48 [facility] Comment on above: Performed By: #### F ERIB, TSH #### [facility] (DEFAULT) [address] [place] [address] 16505 AST [Catalytic activity/Vol] 42 U/L High 10-39 [facility] Comment on above: Performed By: #### F ERIB, TSH #### [facility] (DEFAULT) [address] [place] [address] 35459 Bilirubin [Mass/Vol] 0.5 mg/dL Normal <1.5 [facility] Comment on above: Performed By: #### F ERIB, TSH #### [facility] (DEFAULT) [address] [place] [address] 76253 Bilirubin.indirect [Mass/Vol] 0.1 mg/dL Normal <0.3 [facility] Comment on above: Performed By: #### F ERIB, TSH #### [facility] (DEFAULT) [address] [place] [address] 17005 Protein [Mass/Vol] 7.4 g/dL Normal 6.4-8.3 [facility] Comment on above: Performed By: #### F ERIB, TSH #### [facility] (DEFAULT) [address] [place] [address] 61441 IMMUNOFIXATION SERUMon 11-25 REVIEWED BY: Timmy Morel MD [facility] Comment on above: Performed By: #### P SD, SIMFXB, PSE #### [facility] (DEFAULT) [address] [place] [address] 26804 Serum Immunofixation No definitive monoclonal protein is identified. Normal [facility] Comment on above: Performed By: #### P SD, SIMFXB, PSE #### [facility] (DEFAULT) [address] [place] [address] 99300 IMMUNOGLOBULINS IGG IGA IGMo n 11-26-2023 IgA [Mass/Vol] 179 mg/dL Normal 66-433 [facility] Comment on above: Performed By: #### Q IMM, A1AT, CERP #### [facility] (DEFAULT) [address] [place] [address] 60226 IgG [Mass/Vol] 847 mg/dL Normal 600-1714 [facility] Comment on above: Performed By: #### Q IMM, A1AT, CERP #### [facility] (DEFAULT) [address] [place] [address] 83928 IgM [Mass/Vol] 138 mg/dL Normal 45-281 [facility] Comment on above: Performed By: #### Q IMM, A1AT, CERP #### [facility] (DEFAULT) [address] [place] [address] 71924 IRON/IRON BINDING/TRANSFERRI Non 11-26-2023 Interpretation and review of laboratory results Normal [facility] Iron [Mass/Vol] 79 ug/dL [facility] Iron binding capacity [Mass/Vol] 346 [facility] Iron saturation [Mass fraction] 23 % 20 - 55 % [facility] Transferrin [Mass/Vol] 277 mg/dL 200 - 400 mg/dL [facility] Iron [Mass/Vol] 79 ug/dL Normal 40-174 [facility] Comment on above: Performed By: #### I RBC, HFP, CHM7 #### [facility] (DEFAULT) [address] [place] [address] 19077 Iron Saturation 23 % Normal 20-55 [facility] Comment on above: Performed By: #### I RBC, HFP, CHM7 #### [facility] (DEFAULT) [address] [place] [address] 61608 Total Iron Binding Capacity 346 mcg/dL Normal 250-425 [facility] Comment on above: Performed By: #### I RBC, HFP, CHM7 #### [facility] (DEFAULT) [address] [place] [address] Transferrin [Mass/Vol] 277 mg/dL Normal 200-400 [facility] Comment on above: Performed By: #### I RBC, HFP, CHM7 #### [facility] (DEFAULT) [address] [place] [address] 49411 No Panel Informationon 11-25 Interpretation and review of laboratory results Abnormal [facility] Interpretation and review of laboratory results Normal [facility] PROTEIN ELECTROPHORESISon Albumin [Mass/Vol] 4.6 g/dL Normal 3.5-5.0 [facility] Comment on above: Performed By: #### P SD, SIMFXB, PSE #### [facility] (DEFAULT) [address] [place] [address] 57271 Alpha 1 0.3 g/dL Normal 0.2-0.4 [facility] Comment on above: Performed By: #### P SD, SIMFXB, PSE #### [facility] (DEFAULT) [address] [place] [address] 59726 Alpha 2 0.8 g/dL Normal 0.5-1.0 [facility] Comment on above: Performed By: #### P SD, SIMFXB, PSE #### [facility] (DEFAULT) [address] [place] [address] 77305 Beta 0.9 g/dL Normal 0.5-1.1 [facility] Comment on above: Performed By: #### P SD, SIMFXB, PSE #### [facility] (DEFAULT) [address] [place] [address] 19322 Gamma 0.8 g/dL Normal 0.6-1.5 [facility] Comment on above: Performed By: #### P SD, SIMFXB, PSE #### [facility] (DEFAULT) [address] [place] [address] 74499 Interpretation By: Timmy Morel MD Normal [facility] Comment on above: Performed By: #### P SD, SIMFXB, PSE #### [facility] (DEFAULT) [address] [place] [address] 60641 Spe Interpretation Normal serum protein electrophoresis pattern. Normal [facility] Comment on above: Performed By: #### P SD, SIMFXB, PSE #### [facility] (DEFAULT) [address] [place] [address] 52334 PROTIME-INRon 11-26-2023 INR Coag (Bld) [Relative time] 1.0 {INR} 0.9 - 1.1 [facility] Interpretation and review of laboratory results Normal [facility] PT Coag (PPP) [Time] 13.4 s [facility] INR Coag (PPP) [Relative time] 1.0 {INR} Normal 0.9-1.1 [facility] Comment on above: Performed By: #### P SD, SIMFXB, PSE #### [facility] (DEFAULT) [address] [place] [address] 86252 PT Coag (PPP) [Time] 13.4 s Normal 11.9-14.2 [facility] Comment on above: Performed By: #### P SD, SIMFXB, PSE #### [facility] (DEFAULT) [address] [place] [address] 69313 SPE SERUM TOTAL PROTEINon Protein [Mass/Vol] 7.3 g/dL Normal 6.4-8.3 [facility] Comment on above: Performed By: #### P SD, SIMFXB, PSE #### [facility] (DEFAULT) [address] [place] [address] 88387 T-TRANSGLUTAMINASE IGG/IGA, ABon 11-26-2023 T-TRANSGLUTAMINASE IGA AB <1.2 Normal <4.0 (Negative) [facility] Comment on above: Performed By: #### P SD, SIMFXB, PSE #### [facility] (DEFAULT) [address] [place] [address] Tissue Transglutaminase, IgG 2.4 U/mL Normal <6.0 (Negative) [facility] Comment on above: Result Comment: Test Performed by: [facility] [address] [place] [address] [employer]: Ed Russo M.D. Ph.D.; CLIA# [id number] Performed By: #### P SD, SIMFXB, PSE #### [facility] (DEFAULT) [address] [address] TSHon 11-26-2023 Interpretation and review of laboratory results Normal [facility] TSH Qn 1.315 m[IU]/L [facility] TSH 1.315 uIU/mL Normal 0.550-4.780 [facility] Comment on above: Performed By: #### F ERIB, TSH #### [facility] (DEFAULT) [address] [place] [address] ABDOMEN/PELVIS WITH AND W ITHOUT CONTRASTon [...] error, please notify the sender immediately at [phone] and permanently delete the original report and destroy any copies or printouts. Normal [facility] CBC AND ELECTRONIC DIFFon Basophils (Bld) [#/Vol] 0.05 10*3/uL Normal 0.00-0.15 [facility] Comment on above: Performed By: #### P SD, SIMFXB, PSE #### [facility] (DEFAULT) [address] [place] [address]25 Basophils/100 WBC (Bld) 0.6 % Normal [facility] Comment on above: Performed By: #### P SD, SIMFXB, PSE #### [facility] (DEFAULT) [address] [place] [address] DIFF STATUS Electronic Differential Normal [facility] Comment on above: Performed By: #### P SD, SIMFXB, PSE #### [facility] (DEFAULT) [address] [place] [address] Eosinophils (Bld) [#/Vol] 0.19 10*3/uL Normal 0.00-0.42 [facility] Comment on above: Performed By: #### P SD, SIMFXB, PSE #### [facility] (DEFAULT) [address] [place] [address] Eosinophils/100 WBC (Bld) 2.3 % Normal [facility] Comment on above: Performed By: #### P SD, SIMFXB, PSE #### [facility] (DEFAULT) [address] [place] [address] Hematocrit (Bld) [Volume fraction] 41.9 % Normal 34.9-44.3 [facility] Comment on above: Performed By: #### P SD, SIMFXB, PSE #### [facility] (DEFAULT) [address] [place] [address] Hemoglobin (Bld) [Mass/Vol] 13.5 g/dL Normal 11.4-15.2 [facility] Comment on above: Performed By: #### P SD, SIMFXB, PSE #### [facility] (DEFAULT) [address] [address] Immature Grans % 0.2 % Normal [facility] Comment on above: Performed By: #### P SD, SIMFXB, PSE #### [facility] (DEFAULT) [address] [place] [address] Immature Grans Absolute < Normal <=0.08 [facility] Comment on above: Performed By: #### P SD, SIMFXB, PSE #### [facility] (DEFAULT) [address] [address] Lymphocytes (Bld) [#/Vol] 2.07 10*3/uL Normal 1.16-3.51 [facility] Comment on above: Performed By: #### P SD, SIMFXB, PSE #### [facility] (DEFAULT) [address] [address] Lymphocytes/100 WBC (Bld) 25.6 % Normal [facility] Comment on above: Performed By: #### P SD, SIMFXB, PSE #### [facility] (DEFAULT) [address] [address] MCV (RBC) [Entitic vol] 86.9 fL Normal 79.6-97.7 [facility] Comment on above: Performed By: #### P SD, SIMFXB, PSE #### [facility] (DEFAULT) [address] [address] Mean Cell Hgb 28.0 pg Normal 25.9-33.9 [facility] Comment on above: Performed By: #### P SD, SIMFXB, PSE #### [facility] (DEFAULT) [address] [address] Mean Cell Hgb Conc 32.2 g/dL Normal 31.4-35.9 [facility] Comment on above: Performed By: #### P SD, SIMFXB, PSE #### [facility] (DEFAULT) [address] [address] Monocytes (Bld) [#/Vol] 0.66 10*3/uL Normal 0.22-0.87 [facility] Comment on above: Performed By: #### P SD, SIMFXB, PSE #### [facility] (DEFAULT) [address] [address] Monocytes/100 WBC (Bld) 8.1 % Normal [facility] Comment on above: Performed By: #### P SD, SIMFXB, PSE #### [facility] (DEFAULT) [address] [place] [address] Nucleated RBC 0.0 /100 WBC Normal <=0.2 [facility] Comment on above: Performed By: #### P SD, SIMFXB, PSE #### [facility] (DEFAULT) [address] [place] [address] Platelet mean volume (Bld) [Entitic vol] 9.7 fL Normal 8.5-12.2 [facility] Comment on above: Performed By: #### P SD, SIMFXB, PSE #### [facility] (DEFAULT) [address] [place] [address] Platelets (Bld) [#/Vol] 318 10*3/uL Normal 150-393 [facility] Comment on above: Performed By: #### P SD, SIMFXB, PSE #### [facility] (DEFAULT) [address] [place] [address] RBC (Bld) [#/Vol] 4.82 10*6/uL Normal 3.91-5.04 [facility] Comment on above: Performed By: #### P SD, SIMFXB, PSE #### [facility] (DEFAULT) [address] [place] [address]389 RBC Distribution 14.2 % Normal 10.8-14.9 [facility] Comment on above: Performed By: #### P SD, SIMFXB, PSE #### [facility] (DEFAULT) [address] [place] [address] Segs + Bands Auto 63.2 % Normal [facility] Comment on above: Performed By: #### P SD, SIMFXB, PSE #### [facility] (DEFAULT) [address] [place] [address] Segs + Bands,Absolute Auto 5.11 K/uL Normal 1.64-7.28 [facility] Comment on above: Performed By: #### P SD, SIMFXB, PSE #### [facility] (DEFAULT) [address] [address] WBC (Bld) [#/Vol] 8.10 10*3/uL Normal 3.99-11.19 [facility] Comment on above: Performed By: #### P SD, SIMFXB, PSE #### [facility] (DEFAULT) [address] [address] CHROMOGRANIN Aon 11-06-2023 Chromogranin A 30 ng/mL Normal <93 [facility] Comment on above: Result Comment: ADDITIONAL INFORMATION The testing method is a homogeneous time-resolved immunofluorescent assay manufactured by [employer] and performed on the [employer] Kryptor Compact Plus. Values obtained with different [...] examination and other findings. Test Performed by: [address] [address] [employer]: Ed Russo M.D. Ph.D.; CLIA# [id number] Performed By: #### F ERIB, TSH #### [facility] (DEFAULT) [address] [address] COMPREHENSIVE METABOLIC PANE Shamir 11-06-2023 Albumin [Mass/Vol] 4.6 g/dL Normal 3.5-5.0 [facility] Comment on above: Performed By: #### F ERIB, TSH #### [facility] (DEFAULT) [address] [place] [address] ALP [Catalytic activity/Vol] 75 U/L Normal 32-126 [facility] Comment on above: Performed By: #### F ERIB, TSH #### [facility] (DEFAULT) [address] [place] [address] ALT [Catalytic activity/Vol] 66 U/L High 9-48 [facility] Comment on above: Performed By: #### F ERIB, TSH #### [facility] (DEFAULT) [address] [place] [address] Anion gap [Moles/Vol] 13 mmol/L Normal 7-17 [facility] Comment on above: Performed By: #### F ERIB, TSH #### [facility] (DEFAULT) [address] [place] [address] AST [Catalytic activity/Vol] 40 U/L High 10-39 [facility] Comment on above: Performed By: #### F ERIB, TSH #### [facility] (DEFAULT) [address] [place] [address] Bilirubin [Mass/Vol] 0.3 mg/dL Normal <1.5 [facility] Comment on above: Performed By: #### F ERIB, TSH #### [facility] (DEFAULT) [address] [place] [address] Calcium [Mass/Vol] 9.7 mg/dL Normal 8.6-10.5 [facility] Comment on above: Performed By: #### F ERIB, TSH #### [facility] (DEFAULT) [address] [place] [address] Chloride [Moles/Vol] 104 mmol/L Normal 98-108 [facility] Comment on above: Performed By: #### F ERIB, TSH #### [facility] (DEFAULT) [address] [place] [address] CO2 [Moles/Vol] 30 mmol/L Normal 21-31 [facility] Comment on above: Performed By: #### F ERIB, TSH #### [facility] (DEFAULT) [address] [place] [address] Creatinine [Mass/Vol] 0.61 mg/dL Normal 0.50-1.20 [facility] Comment on above: Performed By: #### F ERIB, TSH #### [facility] (DEFAULT) [address] [place] [address] eGFR, CKD-EPI, Female > Normal >=60 [facility] Comment on above: Result Comment: Repo rted eGFR is based on the CKD-EPI 2020 equation using creatinine, age, and sex. Performed By: #### F ERIB, TSH #### [facility] (DEFAULT) [address] [place] [address] Glucose [Mass/Vol] 62 mg/dL Low 70-99 [facility] Comment on above: Performed By: #### F ERIB, TSH #### [facility] (DEFAULT) [address] [place] [address] Osmolality [Osmolality] 293 mosm/kg Normal 278-305 [facility] Comment on above: Performed By: #### F ERIB, TSH #### [facility] (DEFAULT) [address] [place] [address] Potassium [Moles/Vol] 3.9 mmol/L Normal 3.5-5.0 [facility] Comment on above: Performed By: #### F ERIB, TSH #### [facility] (DEFAULT) [address] [place] [address] Protein [Mass/Vol] 7.3 g/dL Normal 6.4-8.3 [facility] Comment on above: Performed By: #### F ERIB, TSH #### [facility] (DEFAULT) [address] [place] [address] Sodium [Moles/Vol] 143 mmol/L Normal 135-145 [facility] Comment on above: Performed By: #### F ERIB, TSH #### [facility] (DEFAULT) [address] [place] [address] Urea nitrogen [Mass/Vol] 6 mg/dL Low 7-25 [facility] Comment on above: Performed By: #### F ERIB, TSH #### [facility] (DEFAULT) [address] [place] [address] Urea nitrogen/Creatinine [Mass ratio] 10 mg/mg Normal [facility] Comment on above: Performed By: #### F ERIB, TSH #### [facility] (DEFAULT) [address] [place] [address] 72034 LACTATE DEHYDROGENASEon 10-18 LD Total 161 U/L Normal 100-190 [facility] Comment on above: Performed By: #### F ERIB, TSH #### [facility] (DEFAULT) [address] [place] [address] Shamir 09-25-2023 L Specimen: [id number] Received: 09/27/23 Status: MARIANNA Mosqueda Num: [id number] Spec Type: Surgical Subm Dr: Ron Ruano Tissues: A Placenta - 3rd Trimester (Greater than 28 weeks) (PLACENTA) Procedures: HE/3, Gross/Micro L5 Age/ Patient Sex Location Account Attending Physician Zainab Mcclure 28/F [facility] [id number] Ron Ruano SPEC NUM: [id number] RECD: 09/27/23 STATUS: MARIANNA MOSQUEDA NUM: [id number] AUSTEN: 09/25/[address]: Ron Ruano ENTERED: 09/27/[address] [facility] DR: Ron,Lab SPEC TYPE: Surgical [...] Zainab Swift per requisition, Zainab Mcclure in [facility], same Gross Description Received in formalin [...] of the cut surface of the placenta. Public Health Registrar sections are submitted in 3 cassettes as follows: A1 - cord and central disc -------- Specimen: [id number] Received: 09/27/23 Status: MARIANNA Mosqueda Num: [id number] Spec Type: Surgical Subm Dr: Ron Ruano Tissues: A Placenta - 3rd Trimester (Greater than 28 weeks) (PLACENTA) Procedures: HE/3, Gross/Micro L5 -------- Patient: Zainab Mcclure [id number] (Continued) -------- Specimen: [id number] Received: 09/27/23 (Continued) Gross Description (Continued) Signed (signature on file) Hawk Stevens MD 09/28/232017 -------- Specimen: [id number] Received: 09/27/23 Status: MARIANNA Mosqueda Num: [id number] Spec Type: Surgical Subm Dr: Ron Ruano Tissues: A Placenta - 3rd Trimester (Greater than 28 weeks) (PLACENTA) Procedures: Pedro WATT/Zack Aden -------- Patient: Zainab Mcclure [id number] (Continued) -------- Specimen: [id number] Received: 09/27/23 (Continued) Gross Description (Continued) A2 - membranes and marginal disc A3 - Superficial lesion CPT Codes 20086 -------- -------- Specimen: [id number] Received: 09/27/23 Status: MARIANNA Mosqueda Num: [id number] Spec Type: Surgical Subm Dr: Ron Ruano Tissues: A Placenta - 3rd Trimester (Greater than 28 weeks) (PLACENTA) Procedures: HE/José Manuel, Gross/Micro L5 -------- Patient: Zainab Mcclure [id number] (Continued) -------- Signed (signature on file) Hawk Stevens MD 09/28/232017 Normal [facility] MRI ABDOMEN/PELVIS WITHOUT C ONTRASTon [...] size and signal. There is no hydronephrosis. Retroperitoneal/Lymph Nodes/Vasculature: No abdominal/retroperito andrzej adenopathy is identified. Abdominal aorta and its [...] size and signal. There is no hydronephrosis. Retroperitoneal/Lymph Nodes/Vasculature: No abdominal/retroperito andrzej adenopathy is identified. Abdominal aorta and its [...] is not well visualized on this exam. [facility] WITHOUT C ONTRASTOrdered By: Mandi Montiel on 03-11-2023 [facility] Work Phone: CT Chest W [...] I have reviewed and approved this report. [facility] CT Chest W contrast IVOrdere d By: Benjamin Santos on 10-23-[address] [facility] [address] Chest W contrast Jason Radiology Study observation (narrative) [facility] CT Neck W contrast Jason 04-0 [...] for mass or adenopathy in the neck. [facility] Radiology Study observation (narrative) [facility] CT Neck W contrast IVOrdered By: Miguel Espinal on 10-22-2022 [facility] Work Phone: Cardiac echo study Procedure Ordered By: Guerrero Carvalho on 10-22-2022 Ao peak raj 1.26 m/s [facility] Work Phone: Ao VTI 19.98 cm [facility] Work Phone: Ascending aorta 2.62 cm [facility] Work Phone: AV LVOT peak gradient 3 mmHg [facility] Work Phone: AV mean gradient 3 mmHg [facility] Work Phone: AV peak gradient 6 mmHG [facility] Work Phone: AV valve area 2.24 cm2 [facility] Work Phone: AV Velocity Ratio 0.70 [facility] Work Phone: FRANK (continuity Vmax) 1.82 cm2 [facility] Work Phone: FRANK (continuity VTI) 2.24 cm2 [facility] Work Phone: FRANK index (continuity Vmax) 1.06 m/s [facility] Work Phone: FRANK index (continuity VTI) 1.30 cm2/m2 [facility] Work Phone: Avg e' pk raj 0.15 m/s [facility] Work Phone: Avg E/e' ratio 4.89 [facility] Work Phone: Body surface area Derived from formula 1.72 m2 [facility] Work Phone: BP EF 62 % [facility] Work Phone: DI (Vmax) 0.70 [facility] Work Phone: DI (VTI) 0.86 m/2 [facility] Work Phone: E wave decelartion time 217.58 msec [facility] Work Phone: e' lateral pk raj 0.1597 m/s [facility] Work Phone: e' lateral pk raj 0.16 m/s [facility] Work Phone: e' septal pk raj 0.1401 m/s [facility] Work Phone: e' septal pk raj 0.14 m/s [facility] Work Phone: E/A ratio 0.74 [facility] Work Phone: E/e' lateral ratio 4.57 [facility] Work Phone: E/e' septal ratio 5.21 [facility] Work Phone: EF SP 2CH 64 [facility] Work Phone: EF SP 4CH 59 [facility] Work Phone: FS 33 % 28 - 44 % [facility] IVC ostium 1.46 cm [facility] Work Phone: IVS 0.61 [facility]: LA AREA 2CH 13.72 cm2 [facility] Work Phone: LA area 4CH 9.33 cm2 [facility] Work Phone: LA ESV BP (MOD) 29 mL [facility] Work Phone: LA ESV BP (MOD) index 17 mL/m2 [facility] Work Phone: LA ESV SP 2CH (MOD) 37 mL [facility] Work Phone: LA ESV SP 4CH (MOD) 19 mL [facility] Work Phone: Long Strain -21.7 % [facility] Work Phone: LV EDV BP 71 [facility]: LV EDV SP 2CH 76 [facility]: LV EDV SP 4CH 61 mL [facility] Work Phone: LV ESV BP 27 mL [facility] Work Phone: LV ESV SP 2CH 27 [facility] Work [facility]: LV ESV SP 4CH 25 mL [facility] Work Phone: LV mass 68.53 g [facility] Work Phone: LV Mass Index 39.8 g/m2 [facility] Work Phone: LV RWT 0.30 [facility] Work Phone: LV stroke volume BP (ml) 44 mL [facility] Work Phone: LV stroke volume index BP 25.58 mL/m2 [facility] Work Phone: LVIDD 4.10 cm [facility] Work Phone: LVIDS 2.73 cm [facility] Work Phone: LVOT area 2.60 cm2 [facility] Work Phone: LVOT diameter 1.82 cm [facility] Work Phone: LVOT peak raj 0.88 m/s [facility] Work Phone: LVOT peak VTI 17.19 cm [facility] Work Phone: LVOT stroke volume 45 cm3 [facility] Work Phone: LVOT stroke volume index 25.99 ml/m2 [facility] Work Phone: MV pk A raj 0.98 m/s [facility] Work Phone: MV pk E raj 0.73 m/s [facility] Work Phone: MV stenosis pressure 1/2 time 63.10 ms [facility] Work Phone: MV valve area p 1/2 method 3.49 cm2 [facility] Work Phone: OS AV VTI RATIO PRE STRESS 0.86 [facility] Work Phone: OS ECHO LV BIPLANE SYSTOLIC VOLUME INDEX 15.70 mL/m2 [facility] Work Phone: OS ECHO LV BP DIASTOLIC VOLUME INDEX 41.28 mL/m2 [facility] Work Phone: PV peak gradient 4 mmHg [facility] Work Phone: PV PK RAJ 0.97 m/s [facility] Work Phone: PW 0.61 cm [facility] Work Phone: RA vol index 4CH (MOD) 12.79 mL/m2 [facility] Work Phone: Right atrium volume 4 chamber method of disks 22 mL [facility] Work Phone: RV Area diastolic 21.85 cm2 [facility] Work Phone: RV Area systolic 11.51 cm2 [facility] Work Phone: RV basal diam 3.02 cm [facility] Work Phone: RV Fractional area change 47.3 % [facility] Work Phone: RV long diam 7.35 cm [facility] Work Phone: RV Long Strain -28.0 % [facility] Work Phone: RV mid diam 2.68 cm [facility] Work Phone: RV S' 12.55 cm/s [facility] Work Phone: RVOT peak gradient 1 mmHg [facility] Work Phone: RVOT peak raj 0.59 m/s [facility] Work Phone: Sinus 2.70 cm [facility] Work Phone: STJ 2.41 cm [facility] Work Phone: Stroke Volume 45 cm/mL [facility] Work Phone: Stroke volume index 26 [facility] Work Phone: TAPSE 2.03 cm [facility] Work Phone: [facility] Work Phone: Cardiac echo study [...] The left ventricular wall motion is normal. [facility] Radiology Study observation (narrative) [facility] B-TYPE NATRIURETIC PEPTIDE ( BRAIN)on 10-07-2022 Interpretation and review of laboratory results Normal [facility] Natriuretic peptide B (Bld) [Mass/Vol] 4 pg/mL 0 - 100 pg/mL [facility] HIGH SENSITIVITY TROPONIN I - SINGLE ORDERon 10-07-2022 Interpretation and review of laboratory results Normal [facility] Troponin I.cardiac High sensitivity method [Mass/Vol] ng/L NINF - 34 ng/L [facility] MONOon 10-02-2022 Monocytes (Bld) [#/Vol] Negative Normal NEGATIVE [facility] Comment on above: Performed By: #### L IVER, LDH, BMP #### [facility] [address] [address] [address] Esthela Stevens CBC AUTO DIFFon 09-30-2022 BASO # 0.1 103/ul Normal 0.0-0.1 [facility] Comment on above: Performed By: #### L IVER, LDH, BMP #### [facility] [address] [place] [address] Dr. Esthela Stevens Basophils/100 WBC (Bld) 0.8 % Normal 0.2-2.0 [facility] Comment on above: Performed By: #### L IVER, LDH, BMP #### [facility] [address] [place] [address] Dr. Esthela Stevens EO # 0.1 103/ul Normal 0.0-0.7 [facility] Comment on above: Performed By: #### L IVER, LDH, BMP #### [facility] [address] [place] [address] Dr. Esthela Stevens Eosinophils/100 WBC (Bld) 1.7 % Normal 0.9-7.0 [facility] Comment on above: Performed By: #### L IVER, LDH, BMP #### [facility] [address] [place] [address] Dr. Esthela Stevens Erythrocyte distribution width (RBC) [Ratio] 13.1 % Normal 11.0-15.0 [facility] Comment on above: Performed By: #### L IVER, LDH, BMP #### [facility] [address] [place] [address] Dr. Esthela Stevens Hematocrit (Bld) [Volume fraction] 38.4 % Normal 36.0-48.0 [facility] Comment on above: Performed By: #### L IVER, LDH, BMP #### [facility] [address] [place] [address] Dr. Esthela Stevens Hemoglobin (Bld) [Mass/Vol] 12.4 g/dL Normal 12.0-16.0 [facility] Comment on above: Performed By: #### L IVER, LDH, BMP #### [facility] [address] [place] [address] Dr. Esthela Stevens IG # 0.02 10e3/ul Normal 0.00-0.03 [facility] Comment on above: Performed By: #### L IVER, LDH, BMP #### [facility] [address] [address] [address] Esthela Stevens IG % 0.3 % Normal 0.0-0.5 [facility] Comment on above: Performed By: #### L IVER, LDH, BMP #### [facility] [address] [address] [address] Esthela Stevens LYMPH # 2.2 103/ul Normal 1.2-3.8 [facility] Comment on above: Performed By: #### L IVER, LDH, BMP #### [facility] [address] [place] [address] Dr. Esthela Stevens Lymphocytes/100 WBC (Bld) 32.8 % Normal 20.5-60.0 [facility] Comment on above: Performed By: #### L IVER, LDH, BMP #### [facility] [address] [place] [address] Dr. Esthela Stevens MANUAL DIFF REQ NO Normal [facility] Comment on above: Performed By: #### L IVER, LDH, BMP #### [facility] [address] [place] [address] Dr. Esthela Stevens MCH (RBC) [Entitic mass] 27.1 pg Normal 26.7-34.0 [facility] Comment on above: Performed By: #### L IVER, LDH, BMP #### [facility] [address] [place] [address] Dr. Esthela Stevens MCHC (RBC) [Mass/Vol] 32.3 g/dL Normal 29.9-35.2 [facility] Comment on above: Performed By: #### L IVER, LDH, BMP #### [facility] [address] [place] [address] Dr. Esthela Stevens MCV (RBC) [Entitic vol] 83.8 fL Normal 81.0-99.0 [facility] Comment on above: Performed By: #### L IVER, LDH, BMP #### [facility] [address] [place] [address] Dr. Esthela Stevens MONO # 0.5 103/ul Normal 0.3-0.8 [facility] Comment on above: Performed By: #### L IVER, LDH, BMP #### [facility] [address] [place] [address] Dr. Esthela Stevens Monocytes/100 WBC (Bld) 8.0 % Normal 1.7-12.0 [facility] Comment on above: Performed By: #### L IVER, LDH, BMP #### [facility] [address] [place] [address] Dr. Esthela Stevens NEUT # 3.7 103/ul Normal 1.4-6.5 [facility] Comment on above: Performed By: #### L IVER, LDH, BMP #### [facility] [address] [place] [address] Dr. Esthela Stevens Neutrophils/100 WBC (Bld) 56.4 % Normal 43.0-75.0 [facility] Comment on above: Performed By: #### L IVER, LDH, BMP #### [facility] [address] [place] [address] Dr. Esthela Stevens Platelet mean volume (Bld) [Entitic vol] 9.3 fL Critically low 9.5-13.5 [facility] Comment on above: Performed By: #### L IVER, LDH, BMP #### [facility] [address] [place] [address] Dr. Esthela Stevens PLT 334 103/ul Normal 150-450 [facility] Comment on above: Performed By: #### L IVER, LDH, BMP #### [facility] [address] [place] [address] Dr. Esthela Stevens RBC 4.58 106/ul Normal 4.20-5.40 [facility] Comment on above: Performed By: #### L IVER, LDH, BMP #### [facility] [address] [place] [address] Dr. Esthela Stevens WBC 6.6 103/ul Normal 4.0-11.0 [facility] Comment on above: Performed By: #### L IVER, LDH, BMP #### [facility] [address] [place] [address] Dr. Esthela Stevens LDHon 09-30-2022 LDH 122 U/L Normal 81-234 [facility] Comment on above: Performed By: #### L IVER, LDH, BMP #### [facility] [address] [address] [address] Esthela Stevens LIVER PROFILEon 09-30-2022 Albumin [Mass/Vol] 4.1 g/dL Normal 3.4-5.0 [facility] Comment on above: Performed By: #### L IVER, LDH, BMP #### [facility] [address] [address] [address] Esthela Stevens Albumin/Globulin [Mass ratio] 1.2 {ratio} Normal [facility] Comment on above: Performed By: #### L IVER, LDH, BMP #### [facility] [address] [place] [address] Dr. Esthela Stevens ALP [Catalytic activity/Vol] 75 U/L Normal 46-116 [facility] Comment on above: Performed By: #### L IVER, LDH, BMP #### [facility] [address] [place] [address] Dr. Esthela Stevens ALT [Catalytic activity/Vol] 41 U/L Normal 14-59 [facility] Comment on above: Performed By: #### L IVER, LDH, BMP #### [facility] [address] [place] [address] Dr. Esthela Stevens AST [Catalytic activity/Vol] 30 U/L Normal 15-37 [facility] Comment on above: Performed By: #### L IVER, LDH, BMP #### [facility] [address] [place] [address] Dr. Esthela Stevens BILI, CONJUGATED 0.1 mg/dL Normal 0.0-0.2 [facility] Comment on above: Performed By: #### L IVER, LDH, BMP #### [facility] [address] [place] [address] Dr. Esthela Stevens Bilirubin [Mass/Vol] 0.5 mg/dL Normal 0.2-1.0 [facility] Comment on above: Performed By: #### L IVER, LDH, BMP #### [facility] [address] [place] [address] Dr. Esthela Stevens Globulin (S) [Mass/Vol] 3.3 g/dL Normal [facility] Comment on above: Performed By: #### L IVER, LDH, BMP #### [facility] [address] [place] [address] Dr. Esthela Stevens Protein [Mass/Vol] 7.4 g/dL Normal 6.4-8.[address] [facility] Comment on above: Performed By: #### L IVER, LDH, BMP #### [facility] [address] [place] [address] Dr. Esthela Stevens PROF CHEM 8 (BAS METB)on Anion gap [Moles/Vol] 9.2 mmol/L Normal [facility] Comment on above: Performed By: #### L IVER, LDH, BMP #### [facility] [address] [place] [address] Dr. Esthela Stevens Calcium [Mass/Vol] 9.0 mg/dL Normal 8.5-10.[address] [facility] Comment on above: Performed By: #### L IVER, LDH, BMP #### [facility] [address] [place] [address] Dr. Esthela Stevens Chloride [Moles/Vol] 102 mmol/L Normal 98-107 [facility] Comment on above: Performed By: #### L IVER, LDH, BMP #### [facility] [address] [place] [address] Dr. Esthela Stevens CO2 [Moles/Vol] 27.8 mmol/L Normal 21.0-32.0 [facility] Comment on above: Performed By: #### L IVER, LDH, BMP #### [facility] [address] [place] [address] Dr. Esthela Stevens Creatinine [Mass/Vol] 0.63 mg/dL Normal 0.55-1.02 [facility] Comment on above: Performed By: #### L IVER, LDH, BMP #### [facility] [address] [address] [address] Esthela Stevens EGFR-AF SWISS >60 Normal >=60 [facility] Comment on above: Performed By: #### L IVER, LDH, BMP #### [facility] [address] [address] [address] Esthela Stevens EGFR-NON AF SWISS >60 Normal >=60 [facility] Comment on above: Performed By: #### L IVER, LDH, BMP #### [facility] [address] [address] [address] Esthela Stevens Glucose [Mass/Vol] 106 mg/dL Normal 74-106 [facility] Comment on above: Performed By: #### L IVER, LDH, BMP #### [facility] [address] [address] [address] Esthela Stevens Potassium [Moles/Vol] 4.0 mmol/L Normal 3.5-5.1 [facility] Comment on above: Performed By: #### L IVER, LDH, BMP #### [facility] [address] [place] [address] Dr. Esthela Stevens Sodium [Moles/Vol] 135 mmol/L Critically low 136-145 [facility] Comment on above: Performed By: #### L IVER, LDH, BMP #### [facility] [address] [place] [address] Dr. Esthela Stevens Urea nitrogen [Mass/Vol] 9.0 mg/dL Normal 7.0-18.0 [facility] Comment on above: Performed By: #### L IVER, LDH, BMP #### [facility] [address] [place] [address] Dr. Esthela Stevens Urea nitrogen/Creatinine [Mass ratio] 14.3 mg/mg Normal [facility] Comment on above: Performed By: #### L IVER, LDH, BMP #### [facility] [address] [place] [address] Dr. Esthela Stevens MG MAMM DIAGNOSTIC 3D EFREN CA Don 09-23-2022 MG MAMM DIAGNOSTIC 3D EFREN CAD Patient: ZAINAB SWIFT Exam Date: 09/23/2022 : 1995 Gender:F Ordering : [facility] Admission #: [id number] Family : Order #: [id number] CLICK HERE TO VIEW EXAM RADIOLOGY REPORT [...] cervical cancer at age 42. LOCATION: [facility] BREAST COMPOSITION: Extremely dense, which lowers the [...] M.D. on 09/23/2022 at 11:31 Normal [facility] US BREAST EFREN LIMITEDon 03-0 US BREAST EFREN LIMITED Patient: ZAINAB SWIFT Exam Date: 09/23/2022 : 1995 Gender:F Ordering : ERIN [facility] Admission #: [id number] Family : Order #: [id number] CLICK HERE TO VIEW EXAM RADIOLOGY REPORT [...] cervical cancer at age 42. LOCATION: [facility] BREAST COMPOSITION: Extremely dense, which lowers the [...] M.D. on 09/23/2022 at 11:31 Normal [facility] Covid-19 PCR (CVDTB)on 08-20 SARS-CoV-2 (COVID-19) RNA JORGE LUIS+probe Ql (Unsp spec) Not detected Normal NOT DETECTED [facility] Comment on above: Result Comment: When diagnostic [...] for this test is supported by the Protein Chemist of Health and Human Service's declaration that [...] used). Performed By: #### P REG #### [facility] [address] [place] [address] Dr. Esthela Stevens INFLUENZA A AND B AGon 09-15 [facility] SEE BELOW Normal [facility] Comment on above: Result Comment: Nega tive for Flu A protein angiten. Infection due to Flu A cannot be ruled out. Flu A angiten in the sample may be below the detection limit of the test. Performed By: #### L IVER, LDH, BMP #### [facility] [address] [place] [address] Dr. Esthela Stevens INFLUBNEGH SEE BELOW Normal [facility] Comment on above: Result Comment: Nega tive for Flu B protein antigen. Infection due to Flu B cannot be ruled out. Flu B antigen in the sample may be below the detection limit of the test. Performed By: #### L IVER, LDH, BMP #### [facility] [address] [place] [address] Dr. Esthela Stevens INFLUENZA A AG Negative Normal NEGATIVE SEE COMMENT [facility] Comment on above: Performed By: #### L IVER, LDH, BMP #### [facility] [address] [place] [address] Dr. Esthela Stevens INFLUENZA B AG Negative Normal NEGATIVE SEE COMMENT [facility] Comment on above: Performed By: #### L IVER, LDH, BMP #### [facility] [address] [place] [address] Dr. Esthela Stevens HUNTER by IFAon 09-04-2022 Antinuclear Antibodies, IFA Positive Abnormal [facility] Comment on above: Result Comment: Nega tive <1:80 Borderline 1:80 Positive >1:80 Performed By: #### P REG #### [facility] [address] [place] [address] Dr. Esthela Stevens Centriole Pattern Normal [facility] Comment on above: Performed By: #### P REG #### [facility] [address] [place] [address] Dr. Esthela Stevens Centromere Pattern Normal [facility] Comment on above: Performed By: #### P REG #### [facility] [address] [address] [address] Esthela Stevens Homogeneous Pattern 1:160 Critically high [facility] Comment on above: Result Comment: ICAP nomenclature: AC-1 Performed By: #### P REG #### [facility] [address] [address] [address] Esthela Stevens Midbody Pattern Normal [facility] Comment on above: Performed By: #### P REG #### [facility] [address] [address] [address] Esthela Stevens Note: Comment Normal [facility] Comment on above: Result Comment: For more [...] titers Nucleosomes, Histones Drug-induced SLE Speckled Sm, BOARDING KENNEL [employer] CATTERY OPERATOR, SCL-70, SLE,MCTD,PSS (diffuse form), SS-A/SS-B Sjogrens Nucleolar SCL-70, PM-1/SCL High titers Scleroderma, PM/DM Centromere Centromere PSS (limited form) w/Crest syndrome variable Nuclear Dot [id number] Primary Biliary Cirrhosis Nuclear GP210, Primary Biliary Cirrhosis Membrane italia A,B,C Performed By: #### P REG #### [facility] [address] [place] [address] Dr. Esthela Stevens Nuclear Dot Pattern Normal [facility] Comment on above: Performed By: #### P REG #### [facility] [address] [place] [address] Dr. Esthela Stevens Nuclear Membrane Pattern Normal [facility] Comment on above: Performed By: #### P REG #### [facility] [address] [place] [address] Dr. Esthela Stevens Nucleolar Pattern Normal [facility] Comment on above: Performed By: #### P REG #### [facility] [address] [place] [address] Dr. Esthela Stevens PCNA Pattern Normal [facility] Comment on above: Performed By: #### P REG #### [facility] [address] [place] [address] Dr. Esthela Stevens Speckled Pattern Normal [facility] Comment on above: Performed By: #### P REG #### [facility] [address] [place] [address] Dr. Esthela Stevens Spindle Apparatus Pattern Normal [facility] Comment on above: Performed By: #### P REG #### [facility] [address] [place] [address] Dr. Esthela Stevens ANTISTREPTOLYSIN O AB (ASO)o n 09-01-2022 Antistreptolysin O Ab 58.8 IU/mL Normal 0.0-200.0 [facility] Comment on above: Performed By: #### L IVER, LDH, BMP #### [facility] [address] [place] [address] Dr. Esthela Stevens INSULINon 09-01-2022 Insulin 12.2 uIU/mL Normal 2.6-24.9 [facility] Comment on above: Performed By: #### I NSULIN #### [facility] [address] [place] [address] Dr. Esthela Stevens RHEUMATOID FACTORon 09-01-19 23 RA Latex Turbid. <10.0 Normal <14.0 [facility] Comment on above: Performed By: #### L IVER, LDH, BMP #### [facility] [address] [place] [address] Dr. Esthela Stevens CBC AUTO DIFFon 08-31-2022 BASO # 0.0 103/ul Normal 0.0-0.1 [facility] Comment on above: Performed By: #### P REG #### [facility] [address] [place] [address] Dr. Esthela Stevens Basophils/100 WBC (Bld) 0.6 % Normal 0.2-2.0 [facility] Comment on above: Performed By: #### P REG #### [facility] [address] [place] [address] Dr. Esthela Stevens EO # 0.1 103/ul Normal 0.0-0.7 [facility] Comment on above: Performed By: #### P REG #### [facility] [address] [place] [address] Dr. Esthela Stevens Eosinophils/100 WBC (Bld) 1.5 % Normal 0.9-7.0 [facility] Comment on above: Performed By: #### P REG #### [facility] [address] [place] [address] Dr. Esthela Stevens Erythrocyte distribution width (RBC) [Ratio] 12.7 % Normal 11.0-15.0 [facility] Comment on above: Performed By: #### P REG #### [facility] [address] [place] [address] Dr. Esthela Stevens Hematocrit (Bld) [Volume fraction] 38.4 % Normal 36.0-48.0 [facility] Comment on above: Performed By: #### P REG #### [facility] [address] [place] [address] Dr. Esthela Stevens Hemoglobin (Bld) [Mass/Vol] 12.7 g/dL Normal 12.0-16.0 [facility] Comment on above: Performed By: #### P REG #### [facility] [address] [place] [address] Dr. Esthela Stevens IG # 0.02 10e3/ul Normal 0.00-0.03 [facility] Comment on above: Performed By: #### P REG #### [facility] [address] [place] [address] Dr. Esthela Stevens IG % 0.3 % Normal 0.0-0.5 [facility] Comment on above: Performed By: #### P REG #### [facility] [address] [place] [address] Dr. Esthela Stevens LYMPH # 2.0 103/ul Normal 1.2-3.8 [facility] Comment on above: Performed By: #### P REG #### [facility] [address] [place] [address] Dr. Esthela Stevens Lymphocytes/100 WBC (Bld) 31.2 % Normal 20.5-60.0 [facility] Comment on above: Performed By: #### P REG #### [facility] [address] [place] [address] Dr. Esthela Stevens MANUAL DIFF REQ NO Normal [facility] Comment on above: Performed By: #### P REG #### [facility] [address] [place] [address] Dr. Esthela Stevens MCH (RBC) [Entitic mass] 27.1 pg Normal 26.7-34.0 [facility] Comment on above: Performed By: #### P REG #### [facility] [address] [place] [address] Dr. Esthela Stevens MCHC (RBC) [Mass/Vol] 33.1 g/dL Normal 29.9-35.2 [facility] Comment on above: Performed By: #### P REG #### [facility] [address] [place] [address] Dr. Esthela Stevens MCV (RBC) [Entitic vol] 82.1 fL Normal 81.0-99.0 [facility] Comment on above: Performed By: #### P REG #### [facility] [address] [place] [address] Dr. Esthela Stevens MONO # 0.4 103/ul Normal 0.3-0.8 [facility] Comment on above: Performed By: #### P REG #### [facility] [address] [place] [address] Dr. Esthela Stevens Monocytes/100 WBC (Bld) 6.4 % Normal 1.7-12.0 [facility] Comment on above: Performed By: #### P REG #### [facility] [address] [place] [address] Dr. Esthela Stevens NEUT # 3.9 103/ul Normal 1.4-6.5 [facility] Comment on above: Performed By: #### P REG #### [facility] [address] [place] [address] Dr. Esthela Stevens Neutrophils/100 WBC (Bld) 60.0 % Normal 43.0-75.0 [facility] Comment on above: Performed By: #### P REG #### [facility] [address] [address] [address] Esthela Stevens Platelet mean volume (Bld) [Entitic vol] 9.2 fL Critically low 9.5-13.5 [facility] Comment on above: Performed By: #### P REG #### [facility] [address] [place] [address] Dr. Esthela Stevens PLT 390 103/ul Normal 150-450 [facility] Comment on above: Performed By: #### P REG #### [facility] [address] [place] [address] Dr. Esthela Stevens RBC 4.68 106/ul Normal 4.20-5.40 [facility] Comment on above: Performed By: #### P REG #### [facility] [address] [place] [address] Dr. Esthela Stevens WBC 6.5 103/ul Normal 4.0-11.0 [facility] Comment on above: Performed By: #### P REG #### [facility] [address] [place] [address] Dr. Esthela Stevens CRPon 08-31-2022 CRP [Mass/Vol] mg/L Normal <=1.0 [facility] Comment on above: Performed By: #### L IVER, LDH, BMP #### [facility] [address] [place] [address] Dr. Esthela Stevens FREE THYROXINE INDEX T7on FTI 2.94 Normal 1.30-4.50 [facility] Comment on above: Performed By: #### L IVER, LDH, BMP #### [facility] [address] [place] [address] Dr. Esthela Stevens T3U 33.0 % Normal 30.0-39.0 [facility] Comment on above: Performed By: #### L IVER, LDH, BMP #### [facility] [address] [place] [address] Dr. Esthela Stevens T4 [Mass/Vol] 8.90 ug/dL Normal 4.80-13.90 [facility] Comment on above: Performed By: #### L IVER, LDH, BMP #### [facility] [address] [address] [address] Esthela Stevens GLYCOHEMOGLOBIN A1Con 2022 ADA RECOMMENDATION SEE BELOW Normal [facility] Comment on above: Result Comment: ADA RECOMMENDED LIMIT 4.0 - 6.0 ADA THERAPEUTIC TARGET < 7.0 ACTION SUGGESTED > 7.0 Performed By: #### L IVER, LDH, BMP #### [facility] [address] [place] [address] Dr. Esthela Stevens Glucose [Mass/Vol] 111 mg/dL Normal [facility] Comment on above: Performed By: #### L IVER, LDH, BMP #### [facility] [address] [place] [address] Dr. Esthela Stevens HbA1c (Bld) [Mass fraction] 5.5 % Normal 4.5-6.2 [facility] Comment on above: Performed By: #### L IVER, LDH, BMP #### [facility] [address] [place] [address] Dr. Esthela Stevens IRONon 08-31-2022 Iron [Mass/Vol] 34.0 ug/dL Critically low 50.0-170.0 [facility] Comment on above: Performed By: #### L IVER, LDH, BMP #### [facility] [address] [place] [address] Dr. Esthela Stevens LIPID PROFILEon 08-31-2022 CHOL-HDL RATIO NORM SEE BELOW Normal [facility] Comment on above: Result Comment: 3.3 - 4.4 LOW RISK 4.4 - 7.1 AVERAGE RISK 7.1 - 11.0 MODERATE RISK >11.0 HIGH RISK Performed By: #### L IVER, LDH, BMP #### [facility] [address] [place] [address] Dr. Esthela Stevens Cholesterol [Mass/Vol] 168 mg/dL Normal <=200 [facility] Comment on above: Performed By: #### L IVER, LDH, BMP #### [facility] [address] [place] [address] Dr. Esthela Stevens Cholesterol in HDL [Mass/Vol] 51 mg/dL Normal 40-60 [facility] Comment on above: Performed By: #### L IVER, LDH, BMP #### [facility] [address] [address] [address] Esthela Stevens Cholesterol in LDL [Mass/Vol] 91.8 mg/dL Normal [facility] Comment on above: Performed By: #### L IVER, LDH, BMP #### [facility] [address] [address] [address] Esthela Stevens Cholesterol.total/Ch olesterol in HDL [Mass ratio] 3.3 {ratio} Normal [facility] Comment on above: Performed By: #### L IVER, LDH, BMP #### [facility] [address] [address] [address] Esthela Stevens HDL NORMAL > or = 60 mg/dl - LO W CARDIOVASCULAR RISK <40 mg/dl - HIGH CARDIOVASCULAR RISK Normal [facility] Comment on above: Performed By: #### L IVER, LDH, BMP #### [facility] [address] [place] [address] Dr. Esthela Stevens LDL CALC NORMAL SEE BELOW Normal [facility] Comment on above: Result Comment: <100 mg/dl OPTIMAL 100 - 129 mg/dl NEAR OR ABOVE OPTIMAL 130 - 159 mg/dl BORDERLINE HIGH 160 - 189 mg/dl HIGH >190 mg/dl VERY HIGH Performed By: #### L IVER, LDH, BMP #### [facility] [address] [address] [address] Esthela Stevens Triglyceride [Mass/Vol] 126 mg/dL Normal <=150 [facility] Comment on above: Performed By: #### L IVER, LDH, BMP #### [facility] [address] [address] [address] Esthela Stevens VLDL CALC 25.2 mg/dL Normal [facility] Comment on above: Performed By: #### L IVER, LDH, BMP #### [facility] [address] [address] [address] Esthela Stevens PROF 14(COMP METB)on 023 Albumin [Mass/Vol] 4.2 g/dL Normal 3.4-5.0 [facility] Comment on above: Performed By: #### L IVER, LDH, BMP #### [facility] [address] [place] [address] Dr. Esthela Stevens Albumin/Globulin [Mass ratio] 1.1 {ratio} Normal [facility] Comment on above: Performed By: #### L IVER, LDH, BMP #### [facility] [address] [place] [address] Dr. Esthela Stevens ALP [Catalytic activity/Vol] 74 U/L Normal 46-116 [facility] Comment on above: Performed By: #### L IVER, LDH, BMP #### [facility] [address] [place] [address] Dr. Esthela Stevens ALT [Catalytic activity/Vol] 57 U/L Normal 14-59 [facility] Comment on above: Performed By: #### L IVER, LDH, BMP #### [facility] [address] [place] [address] Dr. Esthela Stevens Anion gap [Moles/Vol] 15.0 mmol/L Normal [facility] Comment on above: Performed By: #### L IVER, LDH, BMP #### [facility] [address] [place] [address] Dr. Esthela Stevens AST [Catalytic activity/Vol] 25 U/L Normal 15-37 [facility] Comment on above: Performed By: #### L IVER, LDH, BMP #### [facility] [address] [place] [address] Dr. Esthela Stevens Bilirubin [Mass/Vol] 0.4 mg/dL Normal 0.2-1.0 [facility] Comment on above: Performed By: #### L IVER, LDH, BMP #### [facility] [address] [place] [address] Dr. Esthela Stevens Calcium [Mass/Vol] 9.4 mg/dL Normal 8.5-10.1 [facility] Comment on above: Performed By: #### L IVER, LDH, BMP #### [facility] [address] [place] [address] Dr. Esthela Stevens Chloride [Moles/Vol] 102 mmol/L Normal 98-107 [facility] Comment on above: Performed By: #### L IVER, LDH, BMP #### [facility] [address] [address] [address] Esthela Stevens CO2 [Moles/Vol] 27.0 mmol/L Normal 21.0-32.0 [facility] Comment on above: Performed By: #### L IVER, LDH, BMP #### [facility] [address] [address] [address] Esthela Stevens Creatinine [Mass/Vol] 0.61 mg/dL Normal 0.55-1.02 [facility] Comment on above: Performed By: #### L IVER, LDH, BMP #### [facility] [address] [address] [address] Esthela Stevens EGFR-AF SWISS >60 Normal >=60 [facility] Comment on above: Performed By: #### L IVER, LDH, BMP #### [facility] [address] [place] [address] Dr. Esthela Stevens EGFR-NON AF SWISS >60 Normal >=60 [facility] Comment on above: Performed By: #### L IVER, LDH, BMP #### [facility] [address] [place] [address] Dr. Esthela Stevens Globulin (S) [Mass/Vol] 3.7 g/dL Normal [facility] Comment on above: Performed By: #### L IVER, LDH, BMP #### [facility] [address] [address] [address] Esthela Stevens Glucose [Mass/Vol] 88 mg/dL Normal 74-106 [facility] Comment on above: Performed By: #### L IVER, LDH, BMP #### [facility] [address] [address] [address] Esthela Stevens Potassium [Moles/Vol] 4.0 mmol/L Normal 3.5-5.1 [facility] Comment on above: Performed By: #### L IVER, LDH, BMP #### [facility] [address] [place] [address] Dr. Esthela Stevens Protein [Mass/Vol] 7.9 g/dL Normal 6.4-8.[address] [facility] Comment on above: Performed By: #### L IVER, LDH, BMP #### [facility] [address] [place] [address] Dr. Esthela Stevens Sodium [Moles/Vol] 140 mmol/L Normal 136-[address] [facility] Comment on above: Performed By: #### L IVER, LDH, BMP #### [facility] [address] [place] [address] Dr. Esthela Stevens Urea nitrogen [Mass/Vol] 4.0 mg/dL Critically low 7.0-18.0 [facility] Comment on above: Performed By: #### L IVER, LDH, BMP #### [facility] [address] [place] [address] Dr. Esthela Stevens Urea nitrogen/Creatinine [Mass ratio] 6.6 mg/mg Normal [facility] Comment on above: Performed By: #### L IVER, LDH, BMP #### [facility] [address] [place] [address] Dr. Esthela Stevens TSHon 08-31-2022 TSH 1.348 uIU/mL Normal 0.358-3.740 [facility] Comment on above: Performed By: #### L IVER, LDH, BMP #### [facility] [address] [place] [address] Dr. Esthela Stevens URIC ACID SERUMon 08-31-2022 Urate [Mass/Vol] 4.4 mg/dL Normal 2.6-6.0 [facility] Comment on above: Performed By: #### L IVER, LDH, BMP #### [facility] [address] [place] [address] Dr. Esthela Stevens VITAMIN D 25 OHon 08-31-2022 VIT D 25-OH 18.0 ng/mL Normal [facility] Comment on above: Performed By: #### L IVER, LDH, BMP #### [facility] [address] [place] [address] Dr. Esthela Stevens VIT D RANGES SEE BELOW Normal [facility] Comment on above: Result Comment: <20 ng/mL Vit D deficient 20 - <30 ng/mL Vit D insufficient 30 - 100 ng/mL Vit D sufficient >100 ng/mL Potential Toxicity Performed By: #### L IVER, LDH, BMP #### [facility] [address] [address] [address] Esthela Stevens LIVER PROFILEon 08-24-2022 Albumin [Mass/Vol] 3.9 g/dL Normal 3.4-5.0 [facility] Comment on above: Performed By: #### L IVER, LDH, BMP #### [facility] [address] [address] [address] Esthela Stevens Albumin/Globulin [Mass ratio] 1.0 {ratio} Normal [facility] Comment on above: Performed By: #### L IVER, LDH, BMP #### [facility] [address] [place] [address] Dr. Esthela Stevens ALP [Catalytic activity/Vol] 70 U/L Normal 46-116 [facility] Comment on above: Performed By: #### L IVER, LDH, BMP #### [facility] [address] [address] [address] Esthela Stevens ALT [Catalytic activity/Vol] 44 U/L Normal 14-59 [facility] Comment on above: Performed By: #### L IVER, LDH, BMP #### [facility] [address] [place] [address] Dr. Esthela Stevens AST [Catalytic activity/Vol] 22 U/L Normal 15-37 [facility] Comment on above: Performed By: #### L IVER, LDH, BMP #### [facility] [address] [address] [address] Esthela Stevens BILI, CONJUGATED 0.1 mg/dL Normal 0.0-0.2 [facility] Comment on above: Performed By: #### L IVER, LDH, BMP #### [facility] [address] [address] [address] Esthela Stevens Bilirubin [Mass/Vol] 0.3 mg/dL Normal 0.2-1.0 [facility] Comment on above: Performed By: #### L IVER, LDH, BMP #### [facility] [address] [address] [address] Esthela Stevens Globulin (S) [Mass/Vol] 3.9 g/dL Normal [facility] Comment on above: Performed By: #### L IVER, LDH, BMP #### [facility] [address] [address] [address] Esthela Stevens Protein [Mass/Vol] 7.8 g/dL Normal 6.4-8.2 [facility] Comment on above: Performed By: #### L IVER, LDH, BMP #### [facility] [address] [address] [address] Esthela Stevens CREAT/GFRon 08-19-2022 Creatinine [Mass/Vol] 0.85 mg/dL 0.50 - 1.20 mg/dL [facility] GFR/1.73 sq M.predicted CKD-EPI (S/P/Bld) [Vol rate/Area] - PINF [facility] Comment on above: Reported eGFR is bas ed on the CKD-EPI 2020 equation using creatinine, age, and sex. Interpretation and review of laboratory results Normal [facility] Test performed at address of the patient encounter. [facility] PT Skull base to mid-thighon 08-19-2022 [...] the patient was positioned on the [employer] mCT TOF< PET/CT-64, Tera imaging unit. 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 [facility] Radiology Study observation (narrative) [facility] PT Skull base to mid-thighOr dered By: Hawa Pichardo on 08-19-2022 [facility] Work Phone: CBC AUTO DIFFon 08-12-2022 BASO # 0.1 103/ul Normal 0.0-0.1 [facility] Comment on above: Performed By: #### L IVER, LDH, BMP #### [facility] [address] [place] [address] Dr. Esthela Stevens Basophils/100 WBC (Bld) 1.0 % Normal 0.2-2.0 [facility] Comment on above: Performed By: #### L IVER, LDH, BMP #### [facility] [address] [place] [address] Dr. Esthela Stevens EO # 0.1 103/ul Normal 0.0-0.7 [facility] Comment on above: Performed By: #### L IVER, LDH, BMP #### [facility] [address] [place] [address] Dr. Esthela Stevens Eosinophils/100 WBC (Bld) 1.6 % Normal 0.9-7.0 [facility] Comment on above: Performed By: #### L IVER, LDH, BMP #### [facility] [address] [place] [address] Dr. Esthela Stevens Erythrocyte distribution width (RBC) [Ratio] 12.5 % Normal 11.0-15.0 [facility] Comment on above: Performed By: #### L IVER, LDH, BMP #### [facility] [address] [place] [address] Dr. Esthela Stevens Hematocrit (Bld) [Volume fraction] 40.1 % Normal 36.0-48.0 [facility] Comment on above: Performed By: #### L IVER, LDH, BMP #### [facility] [address] [place] [address] Dr. Esthela Stevens Hemoglobin (Bld) [Mass/Vol] 12.3 g/dL Normal 12.0-16.0 [facility] Comment on above: Performed By: #### L IVER, LDH, BMP #### [facility] [address] [place] [address] Dr. Esthela Stevens IG # 0.01 10e3/ul Normal 0.00-0.03 [facility] Comment on above: Performed By: #### L IVER, LDH, BMP #### [facility] [address] [place] [address] Dr. Esthela Stevens IG % 0.2 % Normal 0.0-0.5 [facility] Comment on above: Performed By: #### L IVER, LDH, BMP #### [facility] [address] [place] [address] Dr. Esthela Stevens LYMPH # 1.8 103/ul Normal 1.2-3.8 [facility] Comment on above: Performed By: #### L IVER, LDH, BMP #### [facility] [address] [place] [address] Dr. Esthela Stevens Lymphocytes/100 WBC (Bld) 28.0 % Normal 20.5-60.0 [facility] Comment on above: Performed By: #### L IVER, LDH, BMP #### [facility] [address] [place] [address] Dr. Esthela Stevens MANUAL DIFF REQ NO Normal [facility] Comment on above: Performed By: #### L IVER, LDH, BMP #### [facility] [address] [place] [address] Dr. Esthela Stevens MCH (RBC) [Entitic mass] 26.8 pg Normal 26.7-34.0 [facility] Comment on above: Performed By: #### L IVER, LDH, BMP #### [facility] [address] [place] [address] Dr. Esthela Stevens MCHC (RBC) [Mass/Vol] 30.7 g/dL Normal 29.9-35.2 [facility] Comment on above: Performed By: #### L IVER, LDH, BMP #### [facility] [address] [place] [address] Dr. Esthela Stevens MCV (RBC) [Entitic vol] 87.4 fL Normal 81.0-99.0 [facility] Comment on above: Performed By: #### L IVER, LDH, BMP #### [facility] [address] [place] [address] Dr. Esthela Stevens MONO # 0.6 103/ul Normal 0.3-0.8 [facility] Comment on above: Performed By: #### L IVER, LDH, BMP #### [facility] [address] [place] [address] Dr. Esthela Stevens Monocytes/100 WBC (Bld) 9.4 % Normal 1.7-12.0 [facility] Comment on above: Performed By: #### L IVER, LDH, BMP #### [facility] [address] [place] [address] Dr. Esthela Stevens NEUT # 3.8 103/ul Normal 1.4-6.5 [facility] Comment on above: Performed By: #### L IVER, LDH, BMP #### [facility] [address] [place] [address] Dr. Esthela Stevens Neutrophils/100 WBC (Bld) 59.8 % Normal 43.0-75.0 [facility] Comment on above: Performed By: #### L IVER, LDH, BMP #### [facility] [address] [place] [address] Dr. Esthela Stevens Platelet mean volume (Bld) [Entitic vol] 9.6 fL Normal 9.5-13.5 [facility] Comment on above: Performed By: #### L IVER, LDH, BMP #### [facility] [address] [place] [address] Dr. Esthela Stevens PLT 341 103/ul Normal 150-450 [facility] Comment on above: Performed By: #### L IVER, LDH, BMP #### [facility] [address] [place] [address] Dr. Esthela Stevens RBC 4.59 106/ul Normal 4.20-5.40 [facility] Comment on above: Performed By: #### L IVER, LDH, BMP #### [facility] [address] [place] [address] Dr. Esthela Stevens WBC 6.3 103/ul Normal 4.0-11.0 [facility] Comment on above: Performed By: #### L IVER, LDH, BMP #### [facility] [address] [address] [address] ABD/PELV W CONon 08-12-19 CT ABD/PELV W CON INDICATION: ABDOMINA L DISTENSION (GASEOUS) EXAMINATION: CT ABDOMEN AND PELVIS WITH CONTRAST TECHNIQUE: Helically acquired images were obtained of the abdomen and pelvis following intravenous administration of iodinated contrast. A radiation dose optimization technique was used for this scan. ENTERIC CONTRAST: None. COMPARISON: 02/03/2022 __ FINDINGS: LOWER CHEST: The visualized portions of [...] TIMMY SHAY Date: 2022-08-12 17:04 Normal [facility] CULTURE URINEon 08-12-2022 CULTURE URINE Culture Observations : MODERATE GROWTH OF MIXED GENITAL SUNITA. NO POTENTIAL PATHOGENS SEEN. Normal [facility] Comment on above: Performed By: #### L IVER, LDH, BMP #### [facility] [address] [address] [address] Esthela Stevens ER URINE PROFILEon Bilirubin Ql (U) Negative Normal NEGATIVE [facility] Comment on above: Performed By: #### P REG #### [facility] [address] [place] [address] Dr. Esthela Stevens Clarity (U) CLEAR Normal CLEAR [facility] Comment on above: Performed By: #### P REG #### [facility] [address] [place] [address] Dr. Esthela Stevens Color (U) LT. YELLOW Normal YELLOW [facility] Comment on above: Performed By: #### P REG #### [facility] [address] [place] [address] Dr. Esthela Stevens ERUAHD A micrscopic examination will be performed if indicated. Normal [facility] Comment on above: Performed By: #### P REG #### [facility] [address] [place] [address] Dr. Esthela Stevens Glucose Ql (U) Negative Normal NEGATIVE [facility] Comment on above: Performed By: #### P REG #### [facility] [address] [place] [address] Dr. Esthela Stevens Hemoglobin Ql (U) Negative Normal NEGATIVE [facility] Comment on above: Performed By: #### P REG #### [facility] [address] [place] [address] Dr. Esthela Stevens Ketones Ql (U) Negative Normal NEGATIVE [facility] Comment on above: Performed By: #### P REG #### [facility] [address] [place] [address] Dr. Esthela Stevens LEUKOCYTES SMALL Abnormal NEGATIVE [facility] Comment on above: Performed By: #### P REG #### [facility] [address] [place] [address] Dr. Esthela Stevens Nitrite Ql (U) Negative Normal NEGATIVE [facility] Comment on above: Performed By: #### P REG #### [facility] [address] [place] [address] Dr. Esthela Stevens pH (U) 7.0 [pH] Normal 5-9 [facility] Comment on above: Performed By: #### P REG #### [facility] [address] [place] [address] Dr. Esthela Stevens SPEC GRAVITY 1.020 Normal 1.005-<=1.025 [facility] Comment on above: Performed By: #### P REG #### [facility] [address] [place] [address] Dr. Esthela Stevens UA PROTEIN Negative Normal NEGATIVE/ TRACE [facility] Comment on above: Performed By: #### P REG #### [facility] [address] [place] [address] Dr. Esthela Stevens UR MICRO IND INDICATED Normal [facility] Comment on above: Performed By: #### P REG #### [facility] [address] [place] [address] Dr. Esthela Stevens Urobilinogen Qn (U) 0.2 {Emeka'U}/dL Normal 0.2 - 1. 0 [facility] Comment on above: Performed By: #### P REG #### [facility] [address] [place] [address] Dr. Esthela Stevens LIPASEon 08-12-2022 Lipase [Catalytic activity/Vol] 75.0 U/L Normal 73.0-393.0 [facility] Comment on above: Performed By: #### P REG #### [facility] [address] [place] [address] Dr. Esthela Stevens URon 08-12-2022 , QUAL Negative Normal NEGATIVE [facility] Comment on above: Performed By: #### P REG #### [facility] [address] [place] [address] Dr. Esthela Stevens PROF 14(COMP METB)on 023 Albumin [Mass/Vol] 4.0 g/dL Normal 3.4-5.0 [facility] Comment on above: Performed By: #### P REG #### [facility] [address] [place] [address] Dr. Esthela Stevens Albumin/Globulin [Mass ratio] 1.1 {ratio} Normal [facility] Comment on above: Performed By: #### P REG #### [facility] [address] [place] [address] Dr. Esthela Stevens ALP [Catalytic activity/Vol] 73 U/L Normal 46-116 [facility] Comment on above: Performed By: #### P REG #### [facility] [address] [place] [address] Dr. Esthela Stevens ALT [Catalytic activity/Vol] 82 U/L Critically high 14-59 [facility] Comment on above: Performed By: #### P REG #### [facility] [address] [place] [address] Dr. Esthela Stevens Anion gap [Moles/Vol] 12.0 mmol/L Normal [facility] Comment on above: Performed By: #### P REG #### [facility] [address] [place] [address] Dr. Esthela Stevens AST [Catalytic activity/Vol] 33 U/L Normal 15-37 [facility] Comment on above: Performed By: #### P REG #### [facility] [address] [place] [address] Dr. Esthela Stevens Bilirubin [Mass/Vol] 0.2 mg/dL Normal 0.2-1.0 [facility] Comment on above: Performed By: #### P REG #### [facility] [address] [place] [address] Dr. Esthela Stevens Calcium [Mass/Vol] 9.4 mg/dL Normal 8.5-10.[address] [facility] Comment on above: Performed By: #### P REG #### [facility] [address] [place] [address] Dr. Esthela Stevens Chloride [Moles/Vol] 102 mmol/L Normal 98-107 [facility] Comment on above: Performed By: #### P REG #### [facility] [address] [address] [address] Esthela Stevens CO2 [Moles/Vol] 27.8 mmol/L Normal 21.0-32.0 [facility] Comment on above: Performed By: #### P REG #### [facility] [address] [address] [address] Esthela Stevens Creatinine [Mass/Vol] 0.69 mg/dL Normal 0.55-1.02 [facility] Comment on above: Performed By: #### P REG #### [facility] [address] [place] [address] Dr. Esthela Stevens EGFR-AF SWISS >60 Normal >=60 [facility] Comment on above: Performed By: #### P REG #### [facility] [address] [address] [address] Esthela Stevens EGFR-NON AF SWISS >60 Normal >=60 [facility] Comment on above: Performed By: #### P REG #### [facility] [address] [address] [address] Esthela Stevens Globulin (S) [Mass/Vol] 3.5 g/dL Normal [facility] Comment on above: Performed By: #### P REG #### [facility] [address] [address] [address] Esthela Stevens Glucose [Mass/Vol] 109 mg/dL Critically high 74-106 [facility] Comment on above: Performed By: #### P REG #### [facility] [address] [address] [address] Esthela Stevens Potassium [Moles/Vol] 3.8 mmol/L Normal 3.5-5.1 [facility] Comment on above: Performed By: #### P REG #### [facility] [address] [place] [address] Dr. Esthela Stevens Protein [Mass/Vol] 7.5 g/dL Normal 6.4-8.2 [facility] Comment on above: Performed By: #### P REG #### [facility] [address] [address] [address] Esthela Stevens Sodium [Moles/Vol] 138 mmol/L Normal 136-[address] [facility] Comment on above: Performed By: #### P REG #### [facility] [address] [place] [address] Dr. Esthela Stevens Urea nitrogen [Mass/Vol] 6.0 mg/dL Critically low 7.0-18.0 [facility] Comment on above: Performed By: #### P REG #### [facility] [address] [place] [address] Dr. Esthela Stevens Urea nitrogen/Creatinine [Mass ratio] 8.7 mg/mg Normal [facility] Comment on above: Performed By: #### P REG #### [facility] [address] [place] [address] Dr. Esthela Stevens URINE MICROSCOPIC ONLYon BACTERIA SMALL Abnormal NONE SEEN The [facility] Comment on above: Performed By: #### P REG #### [facility] [address] [place] [address] Dr. Esthela Stevens Bacteria identified Cx Nom (U) INDICATED Normal [facility] Comment on above: Performed By: #### P REG #### [facility] [address] [place] [address] Dr. Esthela Stevens CAST NONE SEEN Normal NONE SEEN The [facility] Comment on above: Performed By: #### P REG #### [facility] [address] [place] [address] Dr. Esthela Stevens Crystals LM Nom (Urine sed) NONE SEEN Normal NONE SEEN The [facility] Comment on above: Performed By: #### P REG #### [facility] [address] [place] [address] Dr. Esthela Stevens Epithelial cells LM Ql (Urine sed) MODERATE Abnormal NONE SEEN /RARE The [facility] Comment on above: Performed By: #### P REG #### [facility] [address] [place] [address] Dr. Esthela Stevens MUCOUS NONE SEEN Normal NONE SEEN The [facility] Comment on above: Performed By: #### P REG #### [facility] [address] [address] [address] Esthela Stevens RBC NONE SEEN Abnormal 0-2 [facility] Comment on above: Performed By: #### P REG #### [facility] [address] [address] [address] Esthela Stevens WBC 2-5 Abnormal NONE SEEN [facility] Comment on above: Performed By: #### P REG #### [facility] [address] [place] [address] Dr. Esthela Stevens PAP ACOG PANEL 2: 21 to 31on 08-11-2022 . . Normal [facility] Comment on above: Performed By: #### [id number] #### [facility] [address] [place] [address] Dr. Esthela Stevens Age Gdln ACOG Testing - Normal [facility] Comment on above: Performed By: #### [id number] #### [facility] [address] [place] [address] Dr. Esthela Stevens DIAGNOSIS: Comment Abnormal [facility] Comment on above: Result Comment: EPIT HELIAL CELL ABNORMALITY. ATYPICAL SQUAMOUS CELLS OF UNDETERMINED SIGNIFICANCE (ASC-US). Performed By: #### [id number] #### [facility] [address] [place] [address] Dr. Esthela Stevens Electronically signed by: Comment Normal [facility] Comment on above: Result Comment: Zoe Moncada MD, Pathologist Performed By: #### [id number] #### [facility] [address] [place] [address] Dr. Esthela Stevens HPV Aptima Negative Normal Negative [facility] Comment on above: Result Comment: This nucleic acid amplification test detects fourteen high-risk HPV types (16,18,31,33,35,39,45,51,52,56,58,59,66,68) without differentiation. Performed By: #### [id number] #### [facility] [address] [place] [address] Dr. Esthela Stevens Methodology: Comment Normal [facility] Comment on above: Result Comment: This liquid based ThinPrep(R) pap test was screened with the use of an image guided system. Performed By: #### [id number] #### [facility] [address] [place] [address] Dr. Esthela Stevens Note: Comment Normal [facility] Comment on above: Result Comment: The Pap smear is a screening test designed to aid in the detection of premalignant and malignant conditions of the uterine cervix. It is not a diagnostic procedure and should not be used as the sole means of detecting cervical cancer. Both false-positive and false-negative reports do occur. . Performed By: #### [id number] #### [facility] [address] [place] [address] Dr. Esthela Stevens Pathologist Provided ICD10 Comment [facility] Comment on above: Result Comment: R87. [id number] Performed By: #### [id number] #### [facility] [address] [place] [address] Dr. Esthela Stevens Performed by: Comment Normal [facility] Comment on above: Result Comment: Nevin Ardon Instrument Tech (ASCP) Performed By: #### [id number] #### [facility] [address] [place] [address] Dr. Esthela Stevens Reflex Criteria: Comment Normal [facility] Comment on above: Result Comment: See below for HPV testing results. . Performed By: #### [id number] #### [facility] [address] [place] [address] Dr. Esthela Stevens Specimen adequacy: Comment Normal [facility] Comment on above: Result Comment: Sati sfactory for evaluation. Endocervical and/or squamous metaplastic cells (endocervical component) are present. Performed By: #### [id number] #### [facility] [address] [place] [address] Dr. Esthela Stevens GI PANEL (PCR)on 06-03-2022 Adenovirus F 40/41 Not detected Normal NOT DETECTED [facility] Comment on above: Performed By: #### P REG #### [facility] [address] [place], [place] [id number] Dr. Esthela Stevens Astrovirus Not detected Normal NOT DETECTED [facility] Comment on above: Performed By: #### P REG #### [facility] [address] [place] [address] Dr. Esthela Stevens C. Diff toxin A/B Detected Critically abnormal NOT DETECTED The [facility] Comment on above: Performed By: #### P REG #### [facility] [address] [place] [address] Dr. Esthela Stevens Campylobacter Not detected Normal NOT DETECTED [facility] Comment on above: Performed By: #### P REG #### [facility] [address] [place] [address] Dr. Esthela Stevens Cryptosporidium Not detected Normal NOT DETECTED [facility] Comment on above: Performed By: #### P REG #### [facility] [address] [place] [address] Dr. Esthela Stevens Cyclos. Cayetanensis Not detected Normal NOT DETECTED [facility] Comment on above: Performed By: #### P REG #### [facility] [address] [place] [address] Dr. Esthela Stevens E. Coli O157 Not Applicable Normal Not Applicable [facility] Comment on above: Performed By: #### P REG #### [facility] [address] [place] [address] Dr. Esthela Stevens E. histolytica Not detected Normal NOT DETECTED [facility] Comment on above: Performed By: #### P REG #### [facility] [address] [place] [address] Dr. Esthela Stevens EAEC Not detected Normal NOT DETECTED [facility] Comment on above: Performed By: #### P REG #### [facility] [address] [place] [address] Dr. Esthela Stevens EIEC Not detected Normal NOT DETECTED [facility] Comment on above: Performed By: #### P REG #### [facility] [address] [place] [address] Dr. Esthela Stevens EPEC Not detected Normal NOT DETECTED [facility] Comment on above: Performed By: #### P REG #### [facility] [address] [address] [address] Esthela Stevens ETEC Not detected Normal NOT DETECTED [facility] Comment on above: Performed By: #### P REG #### [facility] [address] [address] [address] Esthela Stevens G. Lamblia Not detected Normal NOT DETECTED [facility] Comment on above: Performed By: #### P REG #### [facility] [address] [address] [address] Esthela KELLY CONTROLS PASSED Normal [facility] Comment on above: Performed By: #### P REG #### [facility] [address] [address] [address] Esthela WEBB HEADER GI PANEL BACTERIA Normal [facility] Comment on above: Performed By: #### P REG #### [facility] [address] [address] [address] Esthela LARA ECOLI GI PANEL DIARRHEAGENIC E.COLI / SHIGELLA Normal [facility] Comment on above: Performed By: #### P REG #### [facility] [address] [address] [address] Esthela LARA INFO SEE BELOW [facility] Comment on above: Result Comment: EAEC - Enteroaggregative E. Coli EPEC- Enteropathogenic E. Coli ETEC- Enterotoxigenic E. Coli lt/st STEC- Shigella-like toxin-producing E. Coli stx1/stx2 EIEC- Shigella/Enteroinvasive E. Coli Performed By: #### P REG #### [facility] [address] [address] [address] Esthela LARA PARASITES GI PANEL PARASITES Normal [facility] Comment on above: Performed By: #### P REG #### [facility] [address] [address] [address] Esthela LARA VIRUS GI PANEL VIRUSES Normal [facility] Comment on above: Performed By: #### P REG #### [facility] [address] [address] [address] Esthela Stevens Norovirus GI/GII Not detected Normal NOT DETECTED [facility] Comment on above: Performed By: #### P REG #### [facility] [address] [place] [address] Dr. Esthela Herman. Shigelloides Not detected Normal NOT DETECTED [facility] Comment on above: Performed By: #### P REG #### [facility] [address] [place] [address] Dr. Esthela Stevens Rotavirus A Not detected Normal NOT DETECTED [facility] Comment on above: Performed By: #### P REG #### [facility] [address] [place] [address] Dr. Esthela Stevens Salmonella Not detected Normal NOT DETECTED [facility] Comment on above: Performed By: #### P REG #### [facility] [address] [place] [address] Dr. Esthela Stevens Sapovirus Not detected Normal NOT DETECTED [facility] Comment on above: Performed By: #### P REG #### [facility] [address] [place] [address] Dr. Esthela Stevens STEC Not detected Normal NOT DETECTED [facility] Comment on above: Performed By: #### P REG #### [facility] [address] [place] [address] Dr. Esthela Stevens Vibrio Not detected Normal NOT DETECTED [facility] Comment on above: Performed By: #### P REG #### [facility] [address] [place] [address] Dr. Esthela Stevens Vibrio Cholera Not detected Normal NOT DETECTED [facility] Comment on above: Performed By: #### P REG #### [facility] [address] [place] [address] Dr. Esthela Stevens Y. Enterocolitica Not detected Normal NOT DETECTED [facility] Comment on above: Performed By: #### P REG #### [facility] [address] [place] [address] Dr. Esthela Stevens CBC AUTO DIFFon 06-02-2022 BASO # 0.1 103/ul Normal 0.0-0.1 [facility] Comment on above: Performed By: #### L IVER, LDH, BMP #### [facility] [address] [place] [address] Dr. Esthela Stevens Basophils/100 WBC (Bld) 0.6 % Normal 0.2-2.0 [facility] Comment on above: Performed By: #### L IVER, LDH, BMP #### [facility] [address] [place] [address] Dr. Esthela Stevens EO # 0.5 103/ul Normal 0.0-0.7 [facility] Comment on above: Performed By: #### L IVER, LDH, BMP #### [facility] [address] [place] [address] Dr. Esthela Stevens Eosinophils/100 WBC (Bld) 4.3 % Normal 0.9-7.0 [facility] Comment on above: Performed By: #### L IVER, LDH, BMP #### [facility] [address] [place] [address] Dr. Esthela Stevens Erythrocyte distribution width (RBC) [Ratio] 13.0 % Normal 11.0-15.0 [facility] Comment on above: Performed By: #### L IVER, LDH, BMP #### [facility] [address] [place] [address] Dr. Esthela Stevens Hematocrit (Bld) [Volume fraction] 33.6 % Critically low 36.0-48.0 [facility] Comment on above: Performed By: #### L IVER, LDH, BMP #### [facility] [address] [place] [address] Dr. Esthela Stevens Hemoglobin (Bld) [Mass/Vol] 10.9 g/dL Critically low 12.0-16.0 [facility] Comment on above: Performed By: #### L IVER, LDH, BMP #### [facility] [address] [place] [address] Dr. Esthela Stevens IG # 0.05 10e3/ul Critically high 0.00-0.03 [facility] Comment on above: Performed By: #### L IVER, LDH, BMP #### [facility] [address] [address] [address] Esthela Stevens IG % 0.5 % Normal 0.0-0.5 [facility] Comment on above: Performed By: #### L IVER, LDH, BMP #### [facility] [address] [address] [address] Esthela Stevens LYMPH # 2.4 103/ul Normal 1.2-3.8 [facility] Comment on above: Performed By: #### L IVER, LDH, BMP #### [facility] [address] [place] [address] Dr. Esthela Stevens Lymphocytes/100 WBC (Bld) 22.4 % Normal 20.5-60.0 [facility] Comment on above: Performed By: #### L IVER, LDH, BMP #### [facility] [address] [place] [address] Dr. Esthela Stevens MANUAL DIFF REQ NO Normal [facility] Comment on above: Performed By: #### L IVER, LDH, BMP #### [facility] [address] [place] [address] Dr. Esthela Stevens MCH (RBC) [Entitic mass] 26.9 pg Normal 26.7-34.0 [facility] Comment on above: Performed By: #### L IVER, LDH, BMP #### [facility] [address] [place] [address] Dr. Esthela Stevens MCHC (RBC) [Mass/Vol] 32.4 g/dL Normal 29.9-35.2 [facility] Comment on above: Performed By: #### L IVER, LDH, BMP #### [facility] [address] [place] [address] Dr. Esthela Stevens MCV (RBC) [Entitic vol] 83.0 fL Normal 81.0-99.0 [facility] Comment on above: Performed By: #### L IVER, LDH, BMP #### [facility] [address] [place] [address] Dr. Esthela Stevens MONO # 0.8 103/ul Normal 0.3-0.8 [facility] Comment on above: Performed By: #### L IVER, LDH, BMP #### [facility] [address] [place] [address] Dr. Esthela Stevens Monocytes/100 WBC (Bld) 7.1 % Normal 1.7-12.0 [facility] Comment on above: Performed By: #### L IVER, LDH, BMP #### [facility] [address] [place] [address] Dr. Esthela Stevens NEUT # 7.0 103/ul Critically high 1.4-6.5 [facility] Comment on above: Performed By: #### L IVER, LDH, BMP #### [facility] [address] [place] [address] Dr. Esthela Stevens Neutrophils/100 WBC (Bld) 65.1 % Normal 43.0-75.0 [facility] Comment on above: Performed By: #### L IVER, LDH, BMP #### [facility] [address] [place] [address] Dr. Esthela Stevens Platelet mean volume (Bld) [Entitic vol] 8.9 fL Critically low 9.5-13.5 [facility] Comment on above: Performed By: #### L IVER, LDH, BMP #### [facility] [address] [place] [address] Dr. Esthela Stevens PLT 519 103/ul Critically high 150-450 [facility] Comment on above: Performed By: #### L IVER, LDH, BMP #### [facility] [address] [place] [address] Dr. Esthela Stevens RBC 4.05 106/ul Critically low 4.20-5.40 [facility] Comment on above: Performed By: #### L IVER, LDH, BMP #### [facility] [address] [place] [address] Dr. Esthela Stevens WBC 10.8 103/ul Normal 4.0-11.0 [facility] Comment on above: Performed By: #### L IVER, LDH, BMP #### [facility] [address] [address] [address] Esthela Stevens PROF 14(COMP METB)on 022 Albumin [Mass/Vol] 3.7 g/dL Normal 3.4-5.0 [facility] Comment on above: Performed By: #### L IVER, LDH, BMP #### [facility] [address] [address] [address] Esthela Stevens Albumin/Globulin [Mass ratio] 1.0 {ratio} Normal [facility] Comment on above: Performed By: #### L IVER, LDH, BMP #### [facility] [address] [address] [address] Esthela Stevens ALP [Catalytic activity/Vol] 75 U/L Normal 46-116 [facility] Comment on above: Performed By: #### L IVER, LDH, BMP #### [facility] [address] [place] [address] Dr. Esthela Stevens ALT [Catalytic activity/Vol] 95 U/L Critically high 14-59 [facility] Comment on above: Performed By: #### L IVER, LDH, BMP #### [facility] [address] [address] [address] Esthela Stevens Anion gap [Moles/Vol] 13.4 mmol/L Normal [facility] Comment on above: Performed By: #### L IVER, LDH, BMP #### [facility] [address] [place] [address] Dr. Esthela Stevens AST [Catalytic activity/Vol] 31 U/L Normal 15-37 [facility] Comment on above: Performed By: #### L IVER, LDH, BMP #### [facility] [address] [address] [address] Esthela Stevens Bilirubin [Mass/Vol] 0.1 mg/dL Critically low 0.2-1.0 [facility] Comment on above: Performed By: #### L IVER, LDH, BMP #### [facility] [address] [address] [address] Esthela Stevens Calcium [Mass/Vol] 9.3 mg/dL Normal 8.5-10.[address] [facility] Comment on above: Performed By: #### L IVER, LDH, BMP #### [facility] [address] [address] [address] Esthela Stevens Chloride [Moles/Vol] 102 mmol/L Normal 98-107 [facility] Comment on above: Performed By: #### L IVER, LDH, BMP #### [facility] [address] [address] [address] Esthela Stevens CO2 [Moles/Vol] 26.4 mmol/L Normal 21.0-32.0 [facility] Comment on above: Performed By: #### L IVER, LDH, BMP #### [facility] [address] [place] [address] Dr. Esthela Stevens Creatinine [Mass/Vol] 0.67 mg/dL Normal 0.55-1.02 [facility] Comment on above: Performed By: #### L IVER, LDH, BMP #### [facility] [address] [place] [address] Dr. Esthela Stevens EGFR-AF SWISS >60 Normal >=60 [facility] Comment on above: Performed By: #### L IVER, LDH, BMP #### [facility] [address] [place] [address] Dr. Esthela Stevens EGFR-NON AF SWISS >60 Normal >=60 [facility] Comment on above: Performed By: #### L IVER, LDH, BMP #### [facility] [address] [place] [address] Dr. Esthela Stevens Globulin (S) [Mass/Vol] 3.7 g/dL Normal [facility] Comment on above: Performed By: #### L IVER, LDH, BMP #### [facility] [address] [place] [address] Dr. Esthela Stevens Glucose [Mass/Vol] 101 mg/dL Normal 74-[address] [facility] Comment on above: Performed By: #### L IVER, LDH, BMP #### [facility] [address] [place] [address] Dr. Esthela Stevens Potassium [Moles/Vol] 3.8 mmol/L Normal 3.5-5.1 [facility] Comment on above: Performed By: #### L IVER, LDH, BMP #### [facility] [address] [address] [address] Esthela Stevens Protein [Mass/Vol] 7.4 g/dL Normal 6.4-8.2 [facility] Comment on above: Performed By: #### L IVER, LDH, BMP #### [facility] [address] [address] [address] Esthela Stevens Sodium [Moles/Vol] 138 mmol/L Normal 136-[address] [facility] [facility] Comment on above: Performed By: #### L IVER LDH, BMP #### [facility] [address] [place] [address] Dr. Esthela Stevens Urea nitrogen [Mass/Vol] 12.0 mg/dL Normal 7.0-18.0 [facility] Comment on above: Performed By: #### L IVER, LDH, BMP #### [facility] [address] [place] [address] Dr. Esthela Stevens Urea nitrogen/Creatinine [Mass ratio] 17.9 mg/mg Normal [facility] Comment on above: Performed By: #### L IVER, LDH, BMP #### [facility] [address] [place] [address] Dr. Esthela Stevens CALCIUMon 05-29-2022 Calcium [Mass/Vol] 9.0 mg/dL 8.6 - 10. 5 mg/dL [facility] CBC,PLATELETSon 05-29-2022 Erythrocyte distribution width (RBC) [Ratio] 13.1 % 10.8 - 14.9 % [facility] Hematocrit (Bld) [Volume fraction] 33.0 % Low 34.9 - 44.3 % [facility] Hemoglobin (Bld) [Mass/Vol] 10.5 g/dL Low 11.4 - 15.2 g/dL [facility] Interpretation and review of laboratory results Abnormal [facility] MCH (RBC) [Entitic mass] 27.1 pg 25.9 - 33.9 pg [facility] MCHC (RBC) [Mass/Vol] 31.8 g/dL 31.4 - 35.9 g/dL [facility] MCV (RBC) [Entitic vol] 85.1 fL 79.6 - 97.7 fL [facility] Platelet mean volume (Bld) [Entitic vol] 9.1 fL 8.5 - 12.2 fL [facility] Platelets (Bld) [#/Vol] 423 10*3/uL High 150 - 393 K/uL [facility] RBC (Bld) [#/Vol] 3.88 10*6/uL Low [facility] WBC (Bld) [#/Vol] 7.36 10*3/uL 3.99 - 11. 19 K/uL [facility] CHEM 7 (LYTES,BUN,CREA,GLUC) on 05-29-2022 Anion gap [Moles/Vol] 13 mmol/L 7 - 17 mmol/L [facility] Chloride [Moles/Vol] 104 mmol/L 98 - 10 8 mmol/L [facility] CO2 [Moles/Vol] 26 mmol/L 21 - 31 mmol/L [facility] Creatinine [Mass/Vol] 0.66 mg/dL 0.50 - 1.20 mg/dL [facility] GFR/1.73 sq M.predicted CKD-EPI (S/P/Bld) [Vol rate/Area] - PINF [facility] Comment on above: Reported eGFR is bas ed on the CKD-EPI 2020 equation using creatinine, age, and sex. Glucose [Mass/Vol] 93 mg/dL 70 - 99 mg/dL [facility] Osmolality Calc [Osmolality] 288 [facility] Potassium [Moles/Vol] 4.2 mmol/L 3.5 - 5.0 mmol/L [facility] Sodium [Moles/Vol] 139 mmol/L 135 - 145 mmol/L [facility] Urea nitrogen [Mass/Vol] 5 mg/dL Low 7 - 25 mg/dL [facility] Urea nitrogen/Creatinine [Mass ratio] 8 mg/mg [facility] MAGNESIUMon 05-29-2022 Magnesium [Mass/Vol] 2.1 mg/dL 1.6 - 2 .6 mg/dL [facility] No Panel Informationon 05-29 Interpretation and review of laboratory results Abnormal [facility] Interpretation and review of laboratory results Normal [facility] PHOSPHATE, INORGANICon 05-29 Phosphate [Mass/Vol] 4.8 mg/dL High 2.2 - 4 .6 mg/dL [facility] CALCIUMon 05-28-2022 Calcium [Mass/Vol] 8.6 mg/dL 8.6 - 10. 5 mg/dL [facility] CBC,PLATELETSon 05-28-2022 Erythrocyte distribution width (RBC) [Ratio] 13.0 % 10.8 - 14.9 % [facility] Hematocrit (Bld) [Volume fraction] 30.5 % Low 34.9 - 44.3 % [facility] Hemoglobin (Bld) [Mass/Vol] 9.8 g/dL Low 11.4 - 15.2 g/dL [facility] Interpretation and review of laboratory results Abnormal [facility] MCH (RBC) [Entitic mass] 26.8 pg 25.9 - 33.9 pg [facility] MCHC (RBC) [Mass/Vol] 32.1 g/dL 31.4 - 35.9 g/dL [facility] MCV (RBC) [Entitic vol] 83.6 fL 79.6 - 97.7 fL [facility] Platelet mean volume (Bld) [Entitic vol] 9.3 fL 8.5 - 12.2 fL [facility] Platelets (Bld) [#/Vol] 374 10*3/uL 150 - 393 K/uL [facility] RBC (Bld) [#/Vol] 3.65 10*6/uL Low [facility] WBC (Bld) [#/Vol] 6.07 10*3/uL 3.99 - 11. 19 K/uL [facility] CHEM 7 (LYTES,BUN,CREA,GLUC) on 05-28-2022 Anion gap [Moles/Vol] 11 mmol/L 7 - 17 mmol/L [facility] Chloride [Moles/Vol] 106 mmol/L 98 - 10 8 mmol/L [facility] CO2 [Moles/Vol] 25 mmol/L 21 - 31 mmol/L [facility] Creatinine [Mass/Vol] 0.50 mg/dL 0.50 - 1.20 mg/dL [facility] GFR/1.73 sq M.predicted CKD-EPI (S/P/Bld) [Vol rate/Area] - PINF [facility] Comment on above: Reported eGFR is bas ed on the CKD-EPI 2020 equation using creatinine, age, and sex. Glucose [Mass/Vol] 89 mg/dL 70 - 99 mg/dL [facility] Osmolality Calc [Osmolality] 285 [facility] Potassium [Moles/Vol] 4.1 mmol/L 3.5 - 5.0 mmol/L [facility] Sodium [Moles/Vol] 138 mmol/L 135 - 145 mmol/L [facility] Urea nitrogen [Mass/Vol] 3 mg/dL Low 7 - 25 mg/dL [facility] Urea nitrogen/Creatinine [Mass ratio] 6 mg/mg [facility] MAGNESIUMon 05-28-2022 Magnesium [Mass/Vol] 1.8 mg/dL 1.6 - 2 .6 mg/dL [facility] No Panel Informationon 05-28 Interpretation and review of laboratory results Abnormal [facility] Interpretation and review of laboratory results Normal [facility] PHOSPHATE, INORGANICon 05-28 Phosphate [Mass/Vol] 4.9 mg/dL High 2.2 - 4 .6 mg/dL [facility] CALCIUMon 05-27-2022 Calcium [Mass/Vol] 8.6 mg/dL 8.6 - 10. 5 mg/dL [facility] CBC,PLATELETSon 05-27-2022 Erythrocyte distribution width (RBC) [Ratio] 12.9 % 10.8 - 14.9 % [facility] Hematocrit (Bld) [Volume fraction] 31.1 % Low 34.9 - 44.3 % [facility] Hemoglobin (Bld) [Mass/Vol] 10.1 g/dL Low 11.4 - 15.2 g/dL [facility] Interpretation and review of laboratory results Abnormal [facility] MCH (RBC) [Entitic mass] 27.2 pg 25.9 - 33.9 pg [facility] MCHC (RBC) [Mass/Vol] 32.5 g/dL 31.4 - 35.9 g/dL [facility] MCV (RBC) [Entitic vol] 83.8 fL 79.6 - 97.7 fL [facility] Platelet mean volume (Bld) [Entitic vol] 9.2 fL 8.5 - 12.2 fL [facility] Platelets (Bld) [#/Vol] 344 10*3/uL 150 - 393 K/uL [facility] RBC (Bld) [#/Vol] 3.71 10*6/uL Low [facility] WBC (Bld) [#/Vol] 6.21 10*3/uL 3.99 - 11. 19 K/uL [facility] CHEM 7 (LYTES,BUN,CREA,GLUC) on 05-27-2022 Anion gap [Moles/Vol] 11 mmol/L 7 - 17 mmol/L [facility] Chloride [Moles/Vol] 105 mmol/L 98 - 10 8 mmol/L [facility] CO2 [Moles/Vol] 26 mmol/L 21 - 31 mmol/L [facility] Creatinine [Mass/Vol] 0.49 mg/dL Low 0.50 - 1.20 mg/dL [facility] GFR/1.73 sq M.predicted CKD-EPI (S/P/Bld) [Vol rate/Area] - PINF [facility] Comment on above: Reported eGFR is bas ed on the CKD-EPI 2020 equation using creatinine, age, and sex. Glucose [Mass/Vol] 93 mg/dL 70 - 99 mg/dL [facility] Interpretation and review of laboratory results Abnormal [facility] Osmolality Calc [Osmolality] 285 [facility] Potassium [Moles/Vol] 4.0 mmol/L 3.5 - 5.0 mmol/L [facility] Sodium [Moles/Vol] 138 mmol/L 135 - 145 mmol/L [facility] Urea nitrogen [Mass/Vol] 3 mg/dL Low 7 - 25 mg/dL [facility] Urea nitrogen/Creatinine [Mass ratio] 6 mg/mg [facility] MAGNESIUMon 05-27-2022 Magnesium [Mass/Vol] 1.9 mg/dL 1.6 - 2 .6 mg/dL [facility] No Panel Informationon 05-27 Interpretation and review of laboratory results Normal [facility] PHOSPHATE, INORGANICon 05-27 Phosphate [Mass/Vol] 4.5 mg/dL 2.2 - 4 .6 mg/dL [facility] CALCIUMon 05-26-2022 Calcium [Mass/Vol] 8.4 mg/dL Low 8.6 - 10. 5 mg/dL [facility] CBC,PLATELETSon 05-26-2022 Erythrocyte distribution width (RBC) [Ratio] 12.8 % 10.8 - 14.9 % [facility] Hematocrit (Bld) [Volume fraction] 31.5 % Low 34.9 - 44.3 % [facility] Hemoglobin (Bld) [Mass/Vol] 10.0 g/dL Low 11.4 - 15.2 g/dL [facility] Interpretation and review of laboratory results Abnormal [facility] MCH (RBC) [Entitic mass] 27.0 pg 25.9 - 33.9 pg [facility] MCHC (RBC) [Mass/Vol] 31.7 g/dL 31.4 - 35.9 g/dL [facility] MCV (RBC) [Entitic vol] 84.9 fL 79.6 - 97.7 fL [facility] Platelet mean volume (Bld) [Entitic vol] 9.7 fL 8.5 - 12.2 fL [facility] Platelets (Bld) [#/Vol] 327 10*3/uL 150 - 393 K/uL [facility] RBC (Bld) [#/Vol] 3.71 10*6/uL Low [facility] WBC (Bld) [#/Vol] 7.91 10*3/uL 3.99 - 11. 19 K/uL [facility] CHEM 7 (LYTES,BUN,CREA,GLUC) on 05-26-2022 Anion gap [Moles/Vol] 13 mmol/L 7 - 17 mmol/L [facility] Chloride [Moles/Vol] 102 mmol/L 98 - 10 8 mmol/L [facility] CO2 [Moles/Vol] 23 mmol/L 21 - 31 mmol/L [facility] Creatinine [Mass/Vol] 0.48 mg/dL Low 0.50 - 1.20 mg/dL [facility] GFR/1.73 sq M.predicted CKD-EPI (S/P/Bld) [facility]: Reported eGFR is bas ed on the CKD-EPI 2020 equation using creatinine, age, and sex. Glucose [Mass/Vol] 154 mg/dL High 70 - 99 mg/dL [facility] Osmolality Calc [Osmolality] 282 [facility] Potassium [Moles/Vol] 4.1 mmol/L 3.5 - 5.0 mmol/L [facility] Sodium [Moles/Vol] 134 mmol/L Low 135 - 145 mmol/L [facility] Urea nitrogen [Mass/Vol] 3 mg/dL Low 7 - 25 mg/dL [facility] Urea nitrogen/Creatinine [Mass ratio] 6 mg/mg [facility] MAGNESIUMon 05-26-2022 Magnesium [Mass/Vol] 1.8 mg/dL 1.6 - 2 .6 mg/dL [facility] No Panel Informationon 05-26 Interpretation and review of laboratory results Abnormal [facility] Interpretation and review of laboratory results Normal [facility] PHOSPHATE, INORGANICon 05-26 Phosphate [Mass/Vol] 3.4 mg/dL 2.2 - 4 .6 mg/dL [facility] CALCIUMon 05-25-2022 Calcium [Mass/Vol] 8.5 mg/dL Low 8.6 - 10. 5 mg/dL [facility] CBC,PLATELETSon 05-25-2022 Erythrocyte distribution width (RBC) [Ratio] 12.8 % 10.8 - 14.9 % [facility] Hematocrit (Bld) [Volume fraction] 31.7 % Low 34.9 - 44.3 % [facility] Hemoglobin (Bld) [Mass/Vol] 9.8 g/dL Low 11.4 - 15.2 g/dL [facility] Interpretation and review of laboratory results Abnormal [facility] MCH (RBC) [Entitic mass] 26.6 pg 25.9 - 33.9 pg [facility] MCHC (RBC) [Mass/Vol] 30.9 g/dL Low 31.4 - 35.9 g/dL [facility] MCV (RBC) [Entitic vol] 85.9 fL 79.6 - 97.7 fL [facility] Platelet mean volume (Bld) [Entitic vol] 9.7 fL 8.5 - 12.2 fL [facility] Platelets (Bld) [#/Vol] 292 10*3/uL 150 - 393 K/uL [facility] RBC (Bld) [#/Vol] 3.69 10*6/uL Low [facility] WBC (Bld) [#/Vol] 9.85 10*3/uL 3.99 - 11. 19 K/uL [facility] CHEM 7 (LYTES,BUN,CREA,GLUC) on 05-25-2022 Anion gap [Moles/Vol] 13 mmol/L 7 - 17 mmol/L [facility] Chloride [Moles/Vol] 104 mmol/L 98 - 10 8 mmol/L [facility] CO2 [Moles/Vol] 24 mmol/L 21 - 31 mmol/L [facility] Creatinine [Mass/Vol] 0.51 mg/dL 0.50 - 1.20 mg/dL [facility] GFR/1.73 sq M.predicted CKD-EPI (S/P/Bld) [Vol rate/Area] - PINF [facility] Comment on above: Reported eGFR is bas ed on the CKD-EPI 2020 equation using creatinine, age, and sex. Glucose [Mass/Vol] 98 mg/dL 70 - 99 mg/dL [facility] Osmolality Calc [Osmolality] 283 [facility] Potassium [Moles/Vol] 4.0 mmol/L 3.5 - 5.0 mmol/L [facility] Sodium [Moles/Vol] 137 mmol/L 135 - 145 mmol/L [facility] Urea nitrogen [Mass/Vol] 2 mg/dL Low 7 - 25 mg/dL [facility] Urea nitrogen/Creatinine [Mass ratio] 4 mg/mg [facility] MAGNESIUMon 05-25-2022 Magnesium [Mass/Vol] 1.8 mg/dL 1.6 - 2 .6 mg/dL [facility] No Panel Informationon 05-25 Interpretation and review of laboratory results Abnormal [facility] Interpretation and review of laboratory results Normal [facility] PHOSPHATE, INORGANICon 05-25 Phosphate [Mass/Vol] 3.2 mg/dL 2.2 - 4 .6 mg/dL [facility] CALCIUMon 05-24-2022 Calcium [Mass/Vol] 7.9 mg/dL Low 8.6 - 10. 5 mg/dL [facility] CBC,PLATELETSon 05-24-2022 Erythrocyte distribution width (RBC) [Ratio] 13.2 % 10.8 - 14.9 % [facility] Hematocrit (Bld) [Volume fraction] 33.0 % Low 34.9 - 44.3 % [facility] Hemoglobin (Bld) [Mass/Vol] 10.4 g/dL Low 11.4 - 15.2 g/dL [facility] Interpretation and review of laboratory results Abnormal [facility] MCH (RBC) [Entitic mass] 27.2 pg 25.9 - 33.9 pg [facility] MCHC (RBC) [Mass/Vol] 31.5 g/dL 31.4 - 35.9 g/dL [facility] MCV (RBC) [Entitic vol] 86.2 fL 79.6 - 97.7 fL [facility] Platelet mean volume (Bld) [Entitic vol] 9.7 fL 8.5 - 12.2 fL [facility] Platelets (Bld) [#/Vol] 270 10*3/uL 150 - 393 K/uL [facility] RBC (Bld) [#/Vol] 3.83 10*6/uL Low [facility] WBC (Bld) [#/Vol] 13.10 10*3/uL High 3.99 - 11 .19 K/uL [facility] CHEM 7 (LYTES,BUN,CREA,GLUC) on 05-24-2022 Anion gap [Moles/Vol] 10 mmol/L 7 - 17 mmol/L [facility] Chloride [Moles/Vol] 105 mmol/L 98 - 10 8 mmol/L [facility] CO2 [Moles/Vol] 24 mmol/L 21 - 31 mmol/L [facility] Creatinine [Mass/Vol] 0.51 mg/dL 0.50 - 1.20 mg/dL [facility] GFR/1.73 sq M.predicted CKD-EPI (S/P/Bld) [Vol rate/Area] - PINF [facility] Comment on above: Reported eGFR is bas ed on the CKD-EPI 2020 equation using creatinine, age, and sex. Glucose [Mass/Vol] 121 mg/dL High 70 - 99 mg/dL [facility] Osmolality Calc [Osmolality] 281 [facility] Potassium [Moles/Vol] 4.1 mmol/L 3.5 - 5.0 mmol/L [facility] Sodium [Moles/Vol] 135 mmol/L 135 - 145 mmol/L [facility] Urea nitrogen [Mass/Vol] 2 mg/dL Low 7 - 25 mg/dL [facility] Urea nitrogen/Creatinine [Mass ratio] 4 mg/mg [facility] MAGNESIUMon 05-24-2022 Interpretation and review of laboratory results Normal [facility] Magnesium [Mass/Vol] 1.7 mg/dL 1.6 - 2 .6 mg/dL [facility] No Panel Informationon 05-24 Interpretation and review of laboratory results Abnormal [facility] PHOSPHATE, INORGANICon 05-24 Phosphate [Mass/Vol] 2.1 mg/dL Low 2.2 - 4 .6 mg/dL [facility] CALCIUMon 05-23-2022 Calcium [Mass/Vol] 8.0 mg/dL Low 8.6 - 10. 5 mg/dL [facility] Interpretation and review of laboratory results Abnormal [facility] CBC,PLATELETSon 05-23-2022 Erythrocyte distribution width (RBC) [Ratio] 13.0 % 10.8 - 14.9 % [facility] Hematocrit (Bld) [Volume fraction] 38.4 % 34.9 - 44.3 % [facility] Hemoglobin (Bld) [Mass/Vol] 12.3 g/dL 11.4 - 15.2 g/dL [facility] Interpretation and review of laboratory results Abnormal [facility] MCH (RBC) [Entitic mass] 26.8 pg 25.9 - 33.9 pg [facility] MCHC (RBC) [Mass/Vol] 32.0 g/dL 31.4 - 35.9 g/dL [facility] MCV (RBC) [Entitic vol] 83.7 fL 79.6 - 97.7 fL [facility] Platelet mean volume (Bld) [Entitic vol] 9.6 fL 8.5 - 12.2 fL [facility] Platelets (Bld) [#/Vol] 354 10*3/uL 150 - 393 K/uL [facility] RBC (Bld) [#/Vol] 4.59 10*6/uL [facility] WBC (Bld) [#/Vol] 12.80 10*3/uL High 3.99 - 11 .19 K/uL [facility] CHEM 7 (LYTES,BUN,CREA,GLUC) Ordered By: Shraddha Munguia on 05-23-2022 Anion gap [Moles/Vol] 13 mmol/L 7 - 17 mmol/L [facility] Chloride [Moles/Vol] 103 mmol/L 98 - 10 8 mmol/L [facility] CO2 [Moles/Vol] 24 mmol/L 21 - 31 mmol/L [facility] Creatinine [Mass/Vol] 0.68 mg/dL 0.50 - 1.20 mg/dL [facility] GFR/1.73 sq M.predicted CKD-EPI (S/P/Bld) [Vol rate/Area] - PINF [facility] Comment on above: Reported eGFR is bas ed on the CKD-EPI 2020 equation using creatinine, age, and sex. Glucose [Mass/Vol] 148 mg/dL High 70 - 99 mg/dL [facility] Interpretation and review of laboratory results Abnormal [facility] Osmolality Calc [Osmolality] 285 [facility] Potassium [Moles/Vol] 4.9 mmol/L 3.5 - 5.0 mmol/L [facility] Sodium [Moles/Vol] 135 mmol/L 135 - 145 mmol/L [facility] Urea nitrogen [Mass/Vol] 4 mg/dL Low 7 - 25 mg/dL [facility] Urea nitrogen/Creatinine [Mass ratio] 6 mg/mg [facility] MAGNESIUMon 05-23-2022 Magnesium [Mass/Vol] 2.5 mg/dL 1.6 - 2 .6 mg/dL [facility] No Panel Informationon 05-23 Interpretation and review of laboratory results Normal [facility] PHOSPHATE, INORGANICon 11-05 -2022 Phosphate [Mass/Vol] 2.7 mg/dL 2.2 - 4 .6 mg/dL [facility] BETA HCG, URINE (POC DEVICE) on 05-22-2022 Beta HCG ( test) Ql (U) Negative Negative [facility] Interpretation and review of laboratory results Normal [facility] Test performed at address of the patient encounter. [facility] CALCIUMon 05-22-2022 Calcium [Mass/Vol] 7.8 mg/dL Low 8.6 - 10. 5 mg/dL [facility] CBC,PLATELETSon 05-22-2022 Erythrocyte distribution width (RBC) [Ratio] 12.7 % 10.8 - 14.9 % [facility] Hematocrit (Bld) [Volume fraction] 37.0 % 34.9 - 44.3 % [facility] Hemoglobin (Bld) [Mass/Vol] 12.0 g/dL 11.4 - 15.2 g/dL [facility] Interpretation and review of laboratory results Abnormal [facility] MCH (RBC) [Entitic mass] 26.3 pg 25.9 - 33.9 pg [facility] MCHC (RBC) [Mass/Vol] 32.4 g/dL 31.4 - 35.9 g/dL [facility] MCV (RBC) [Entitic vol] 81.0 fL 79.6 - 97.7 fL [facility] Platelet mean volume (Bld) [Entitic vol] 9.5 fL 8.5 - 12.2 fL [facility] Platelets (Bld) [#/Vol] 350 10*3/uL 150 - 393 K/uL [facility] RBC (Bld) [#/Vol] 4.57 10*6/uL [facility] WBC (Bld) [#/Vol] 17.70 10*3/uL High 3.99 - 11 .19 K/uL [facility] CHEM 7 (LYTES,BUN,CREA,GLUC) on 05-22-2022 Anion gap [Moles/Vol] 16 mmol/L 7 - 17 mmol/L [facility] Chloride [Moles/Vol] 103 mmol/L 98 - 10 8 mmol/L [facility] CO2 [Moles/Vol] 21 mmol/L 21 - 31 mmol/L [facility] Creatinine [Mass/Vol] 0.56 mg/dL 0.50 - 1.20 mg/dL [facility] GFR/1.73 sq M.predicted CKD-EPI (S/P/Bld) [Vol rate/Area] - PINF [facility] Comment on above: Reported eGFR is bas ed on the CKD-EPI 2020 equation using creatinine, age, and sex. Glucose [Mass/Vol] 133 mg/dL High 70 - 99 mg/dL [facility] Pot[facility] [Moles/Vol] 3.9 mmol/L 3.5 - 5.0 mmol/L [facility] Sodium [Moles/Vol] 136 mmol/L 135 - 145 mmol/L [facility] Urea nitrogen [Mass/Vol] 6 mg/dL Low 7 - 25 mg/dL [facility] Urea nitrogen/Creatinine [Mass ratio] 11 mg/mg [facility] CONTINUOUS CARDIAC MONITORIN G STRIPon 05-22-2022 [facility] CONTINUOUS CARDIAC MONITORIN G STRIPOrdered By: Unassigned Pacs on 05-22-2022 [facility] Work Phone: HEPATIC FUNCTION PANELon Albumin [Mass/Vol] 3.8 g/dL 3.5 - 5.0 g/dL [facility] ALP [Catalytic activity/Vol] 54 U/L 32 - 126 U/L [facility] ALT [Catalytic activity/Vol] 17 U/L 9 - 48 U/L [facility] AST [Catalytic activity/Vol] 23 U/L 10 - 39 U/L [facility] Bilirubin [Mass/Vol] 0.5 mg/dL NINF - 1.5 mg/dL [facility] Bilirubin.direct [Mass/Vol] 0.2 mg/dL NINF - 0.3 mg/dL [facility] Protein [Mass/Vol] 6.3 g/dL Low 6.4 - 8.3 g/dL [facility] MAGNESIUMon 05-22-2022 Magnesium [Mass/Vol] 1.4 mg/dL Low 1.6 - 2 .6 mg/dL [facility] No Panel Informationon 05-22 ABO/RH(D) TYPE Positive [facility] BLOOD COMPONENT TYPE Red Cells, Leukoreduced [facility] EXPIRATION DATE [facility] Product ABO/RH(D) Positive [facility] Product ABO/RH(D) NUMBER [id number] [facility] PRODUCT CODE [id number] [facility] UNIT STATUS released [facility] Interpretation and review of laboratory results Abnormal [facility] PHOSPHATE, INORGANICon 05-22 Interpretation and review of laboratory results Normal [facility] Phosphate [Mass/Vol] 3.3 mg/dL 2.2 - 4 .6 mg/dL [facility] POC ARTERIAL BLOOD GASon Base excess Calc (Bld) [Moles/Vol] -2.1000 mmol/L -3.0 - 3.0 mmol/L [facility] Calcium.ionized (Bld) [Mass/Vol] 4.22 mg/dL Low 4.60 - 5.30 mg/dL [facility] CO2 (Bld) [Partial pressure] 33 mm[Hg] [facility] Glucose [Mass/Vol] 127 mg/dL High 70 - 99 mg/dL [facility] HCO3 (Bld) [Moles/Vol] 22 mmol/L 22 - 28 mmol/L [facility] Hematocrit (Bld) [Volume fraction] 34.5 % 34.2 - 45.6 % [facility] Hemoglobin (Bld) [Mass/Vol] 11.3 g/dL Low 11.4 - 15.2 g/dL [facility] Interpretation and review of laboratory results Abnormal [facility] Lactate [Moles/Vol] 1.2 mmol/L 0.5 - 1. 6 mmol/L [facility] Oxygen (Bld) [Partial pressure] 230 mm[Hg] High [facility] Oxygen saturation in Blood 99 % [facility] pH (Bld) 7.42 [pH] 7.35 - 7.45 [facility] Potassium [Moles/Vol] 3.6 mmol/L 3.5 - 5.0 mmol/L [facility] Sodium [Moles/Vol] 137 mmol/L 135 - 145 mmol/L [facility] Specimen source Nom (Unsp spec) Arterial [facility] Test performed at address of the patient encounter. [facility] Base excess Calc (Bld) [Moles/Vol] 0.0 mmol/L -3.0 - 3.0 mmol/L [facility] Calcium.ionized (Bld) [Mass/Vol] 4.56 mg/dL Low 4.60 - 5.30 mg/dL [facility] CO2 (Bld) [Partial pressure] 38 mm[Hg] [facility] Glucose [Mass/Vol] 138 mg/dL High 70 - 99 mg/dL [facility] HCO3 (Bld) [Moles/Vol] 24 mmol/L 22 - 28 mmol/L [facility] Hematocrit (Bld) [Volume fraction] 34.7 % 34.2 - 45.6 % [facility] Hemoglobin (Bld) [Mass/Vol] 11.3 g/dL Low 11.4 - 15.2 g/dL [facility] Interpretation and review of laboratory results Abnormal [facility] Oxygen (Bld) [Partial pressure] 197 mm[Hg] High [facility] Oxygen saturation in Blood 99 % [facility] pH (Bld) 7.42 [pH] 7.35 - 7.45 [facility] Potassium [Moles/Vol] 3.4 mmol/L Low 3.5 - 5.0 mmol/L [facility] Sodium [Moles/Vol] 138 mmol/L 135 - 145 mmol/L [facility] Specimen source Nom (Unsp spec) Arterial [facility] Test performed at address of the patient encounter. [facility] PREPARE TO TRANSFUSE OR RED BLOOD CELLSon 05-22-2022 UNIT NUMBER [id number] [facility] UNIT NUMBER [id number] [facility] PROTIME-INRon 05-22-2022 INR Coag (Bld) [Relative time] 1.2 {INR} High 0.9 - 1.1 [facility] Interpretation and review of laboratory results Abnormal [facility] PT Coag (PPP) [Time] 14.8 s High [facility] TYPE AND SCREENon 05-22-2022 ABO/RH(D) TYPE Positive [facility] XR Abdomen Single viewon IMPRESSION: Appropriate [...] of the nasogastric tube in the stomach. [facility] Radiology Study observation (narrative) [facility] XR Abdomen Single viewOrdere d By: Debora Burciaga on 05-22-2022 [facility] Work Phone: PREG HCG QUALon 04-08-2022 , QUAL Negative Normal NEGATIVE [facility] Comment on above: Performed By: #### P REG #### [facility] [address] [place] [id number] Esthela Stevens [facility]19 SARS-CoV-2 (COVID-19) RNA JORGE LUIS+probe Ql (Unsp spec) Not detected Normal NOT DETECTED [facility] Comment on above: Result Comment: This test is not yet approved or cleared by the [place] FDA. When there are no FDA-approved or cleared tests available, and other criteria are met, FDA can make tests available under an emergency access mechanism called an Emergency Use Authorization (EUA). The EUA for this test is supported by the [place] of Health and Human Service's (HHS's) declaration [...] By: #### L IVER, LDH, BMP #### [facility] [address] [place], [place] [address] Abdomen and Pelvis Mignon Gomez 04-01-2022 IMPRESSION: No evidence of metastatic disease [...] error, please notify the sender immediately at [phone] and permanently delete the original report and [...] error, please notify the sender immediately at [phone] and permanently delete the original report and destroy any copies or printouts. [facility] CT Abdomen and Pelvis W cont rast IVOrdered By: Avinash Miller on 04-01-[address] [facility] [address] Chest W [...] 1. No evidence for intrathoracic metastatic disease [facility] CT Chest W contrast IVOrdere d By: Yovany Bills on 03-31-2022 [facility] Work Phone: No Panel Informationon 03-31 Radiology Study observation (narrative) [facility] CBC AND ELECTRONIC DIFFon Basophils (Bld) [#/Vol] 0.05 10*3/uL 0.00 - 0.15 K/uL [facility] Basophils/100 WBC (Bld) 0.6 % [facility] Differential cell count method Nom (Bld) Electronic Differential [facility] Eosinophils (Bld) [#/Vol] 0.07 10*3/uL 0.00 - 0.42 K/uL [facility] Eosinophils/100 WBC (Bld) 0.8 % [facility] Erythrocyte distribution width (RBC) [Ratio] 13.4 % 10.8 - 14.9 % [facility] Hematocrit (Bld) [Volume fraction] 37.9 % 34.9 - 44.3 % [facility] Hemoglobin (Bld) [Mass/Vol] 11.9 g/dL 11.4 - 15.2 g/dL [facility] Immature granulocytes (Bld) [#/Vol] 0.04 10*3/uL <=0.08 [facility] Immature granulocytes/100 WBC (Bld) 0.5 % [facility] Interpretation and review of laboratory results Abnormal [facility] Lymphocytes (Bld) [#/Vol] 2.33 10*3/uL 1.16 - 3.51 K/uL [facility] Lymphocytes/100 WBC (Bld) 27.4 % [facility] MCH (RBC) [Entitic mass] 26.3 pg 25.9 - 33.9 pg [facility] MCHC (RBC) [Mass/Vol] 31.4 g/dL 31.4 - 35.9 g/dL [facility] MCV (RBC) [Entitic vol] 83.8 fL 79.6 - 97.7 fL [facility] Monocytes (Bld) [#/Vol] 0.46 10*3/uL 0.22 - 0.87 K/uL [facility] Monocytes/100 WBC (Bld) 5.4 % [facility] Neutrophils (Bld) [#/Vol] 5.55 10*3/uL 1.64 - 7.28 K/uL [facility] Nucleated RBC/100 WBC (Bld) [Ratio] 0.0 % <=0.2 /100 WBC [facility] Platelet mean volume (Bld) [Entitic vol] 10.0 fL 8.5 - 12.2 fL [facility] Platelets (Bld) [#/Vol] 402 10*3/uL High 150 - 393 K/uL [facility] RBC (Bld) [#/Vol] 4.52 10*6/uL [facility] Segmented neutrophils/100 WBC (Bld) 65.3 % [facility] WBC (Bld) [#/Vol] 8.50 10*3/uL 3.99 - 11. 19 K/uL [facility] COMPREHENSIVE METABOLIC PANE Shamir 03-19-2022 Albumin [Mass/Vol] 4.5 g/dL 3.5 - 5.0 g/dL [facility] ALP [Catalytic activity/Vol] 67 U/L 32 - 126 U/L [facility] ALT [Catalytic activity/Vol] 15 U/L 9 - 48 U/L [facility] Anion gap [Moles/Vol] 16 mmol/L 7 - 17 mmol/L [facility] AST [Catalytic activity/Vol] 14 U/L 10 - 39 U/L [facility] Bilirubin [Mass/Vol] 0.4 mg/dL <1.5 [facility] Calcium [Mass/Vol] 9.8 mg/dL 8.6 - 10. 5 mg/dL [facility] Chloride [Moles/Vol] 100 mmol/L 98 - 10 8 mmol/L [facility] CO2 [Moles/Vol] 27 mmol/L 21 - 31 mmol/L [facility] Creatinine [Mass/Vol] 0.66 mg/dL 0.50 - 1.20 mg/dL [facility] GFR/1.73 sq M.predicted CKD-EPI (S/P/Bld) [Vol rate/Area] >90 >=60 mL/min/1.73m2 [facility] Comment on above: Reported eGFR is bas ed on the CKD-EPI 2020 equation using creatinine, age, and sex. Glucose [Mass/Vol] 73 mg/dL 70 - 99 mg/dL [facility] Osmolality Calc [Osmolality] 287 [facility] Potassium [Moles/Vol] 3.6 mmol/L 3.5 - 5.0 mmol/L [facility] Protein [Mass/Vol] 7.4 g/dL 6.4 - 8.3 g/dL [facility] Sodium [Moles/Vol] 139 mmol/L 135 - 145 mmol/L [facility] Urea nitrogen [Mass/Vol] 10 mg/dL 7 - 25 mg/dL [facility] Urea nitrogen/Creatinine [Mass ratio] 15 mg/mg [facility] PT,INR,PTTon 03-19-2022 aPTT Coag (PPP) [Time] 36.5 s [facility] INR Coag (Bld) [Relative time] 1.2 {INR} [facility] Interpretation and review of laboratory results Abnormal [facility] PT Coag (PPP) [Time] 14.6 s [facility] CBC AUTO DIFFon 02-03-2022 BASO # 0.1 103/ul Normal 0.0-0.1 [facility] Comment on above: Performed By: #### L IVER, LDH, BMP #### [facility] [address] [place] [address] [address] Esthela Stevens Basophils/100 WBC (Bld) 0.5 % Normal 0.2-2.0 [facility] Comment on above: Performed By: #### L IVER, LDH, BMP #### [facility] [address] [place] [address] Dr. Esthela Stevens EO # 0.1 103/ul Normal 0.0-0.7 [facility] Comment on above: Performed By: #### L IVER, LDH, BMP #### [facility] [address] [place] [address] Dr. Esthela Stevens Eosinophils/100 WBC (Bld) 1.2 % Normal 0.9-7.0 [facility] Comment on above: Performed By: #### L IVER, LDH, BMP #### [facility] [address] [place] [address] Dr. Esthela Stevens Erythrocyte distribution width (RBC) [Ratio] 13.2 % Normal 11.0-15.0 [facility] Comment on above: Performed By: #### L IVER, LDH, BMP #### [facility] [address] [place] [address] Dr. Esthela Stevens Hematocrit (Bld) [Volume fraction] 38.4 % Normal 36.0-48.0 [facility] Comment on above: Performed By: #### L IVER, LDH, BMP #### [facility] [address] [place] [address] Dr. Esthela Stevens Hemoglobin (Bld) [Mass/Vol] 12.2 g/dL Normal 12.0-16.0 [facility] Comment on above: Performed By: #### L IVER, LDH, BMP #### [facility] [address] [place] [address] Dr. Esthela Stevens IG # 0.06 10e3/ul Critically high 0.00-0.03 [facility] Comment on above: Performed By: #### L IVER, LDH, BMP #### [facility] [address] [place] [address] Dr. Esthela Stevens IG % 0.6 % Critically high 0.0-0.5 [facility] Comment on above: Performed By: #### L IVER, LDH, BMP #### [facility] [address] [place], [place] [id number] Dr. Esthela Stevens LYMPH # 2.1 103/ul Normal 1.2-3.8 [facility] Comment on above: Performed By: #### L IVER, LDH, BMP #### [facility] [address] [place] [address] Dr. Esthela Stevens Lymphocytes/100 WBC (Bld) 21.7 % Normal 20.5-60.0 [facility] Comment on above: Performed By: #### L IVER, LDH, BMP #### [facility] [address] [place] [address] Dr. Esthela Stevens MANUAL DIFF REQ NO Normal [facility] Comment on above: Performed By: #### L IVER, LDH, BMP #### [facility] [address] [place] [address] Dr. Esthela Stevens MCH (RBC) [Entitic mass] 26.5 pg Critically low 26.7-34.0 [facility] Comment on above: Performed By: #### L IVER, LDH, BMP #### [facility] [address] [place] [address] Dr. Esthela Stevens MCHC (RBC) [Mass/Vol] 31.8 g/dL Normal 29.9-35.2 [facility] Comment on above: Performed By: #### L IVER, LDH, BMP #### [facility] [address] [place] [address] Dr. Esthela Stevens MCV (RBC) [Entitic vol] 83.5 fL Normal 81.0-99.0 [facility] Comment on above: Performed By: #### L IVER, LDH, BMP #### [facility] [address] [place] [address] Dr. Esthela Stevens MONO # 0.7 103/ul Normal 0.3-0.8 [facility] Comment on above: Performed By: #### L IVER, LDH, BMP #### [facility] [address] [place] [address] Dr. Esthela Stevens Monocytes/100 WBC (Bld) 7.5 % Normal 1.7-12.0 [facility] Comment on above: Performed By: #### L IVER, LDH, BMP #### [facility] [address] [place] [address] [address] Esthela Stevens NEUT # 6.8 103/ul Critically high 1.4-6.5 [facility] Comment on above: Performed By: #### L IVER, LDH, BMP #### [facility] [address] [place] [address] Dr. Esthela Stevens Neutrophils/100 WBC (Bld) 68.5 % Normal 43.0-75.0 [facility] Comment on above: Performed By: #### L IVER, LDH, BMP #### [facility] [address] [place] [address] Dr. Esthela Stevens Platelet mean volume (Bld) [Entitic vol] 9.4 fL Critically low 9.5-13.5 [facility] Comment on above: Performed By: #### L IVER, LDH, BMP #### [facility] [address] [place] [address] Dr. Esthela Stevens PLT 403 103/ul Normal 150-450 [facility] Comment on above: Performed By: #### L IVER, LDH, BMP #### [facility] [address] [place] [address] Dr. Esthela Stevens RBC 4.60 106/ul Normal 4.20-5.40 [facility] Comment on above: Performed By: #### L IVER, LDH, BMP #### [facility] [address] [place] [address] Dr. Esthela Stevens WBC 9.9 103/ul Normal 4.0-11.0 [facility] Comment on above: Performed By: #### L IVER, LDH, BMP #### [facility] [address] [place] [address] ABD/PELV W CONon [...] CAROLYN WALSH Date: 2022-02-03 12:14 Normal [facility]on 01-16 SARS-CoV-2 (COVID-19) RNA JORGE LUIS+probe Ql (Unsp spec) Not detected Normal NOT DETECTED [facility] Comment on above: Result Comment: When diagnostic [...] for this test is supported by the [place] of Health and Human Service's declaration that [...] By: #### L IVER, LDH, BMP #### [facility] [address] [place] [address] Dr. Esthela Stevens ER URINE PROFILEon 2 Bilirubin Ql (U) Negative Normal NEGATIVE [facility] Comment on above: Performed By: #### E RUR, UMICRO #### [facility] [address] [place] [address] Dr. Esthela Stevens Clarity (U) CLEAR Normal CLEAR [facility] Comment on above: Performed By: #### E RUR, UMICRO #### [facility] [address] [place] [address] Dr. Esthela Stevens Color (U) LT. YELLOW Normal YELLOW [facility] Comment on above: Performed By: #### E RUR, UMICRO #### [facility] [address] [place] [address] Dr. Esthela LOZAAHBenji A micrscopic examination will be performed if indicated. Normal [facility] Comment on above: Performed By: #### E RUR, UMICRO #### [facility] [address] [place] [address] Dr. Esthela Stevens Glucose Ql (U) Negative Normal NEGATIVE [facility] Comment on above: Performed By: #### E RUR, UMICRO #### [facility] [address] [place] [address] Dr. Esthela Stevens Hemoglobin Ql (U) Negative Normal NEGATIVE [facility] Comment on above: Performed By: #### E RUR, UMICRO #### [facility] [address] [place] [address] Dr. Esthela Stevens Ketones Ql (U) Negative Normal NEGATIVE [facility] Comment on above: Performed By: #### E RUR, UMICRO #### [facility] [address] [place] [address] Dr. Esthela Stevens LEUKOCYTES SMALL Abnormal NEGATIVE [facility] Comment on above: Performed By: #### E RUR, UMICRO #### [facility] [address] [place] [address] Dr. Esthela Stevens Nitrite Ql (U) Negative Normal NEGATIVE [facility] Comment on above: Performed By: #### MAKENZIE WALLACE #### [facility] [address] [place] [address] Dr. Esthela Stevens pH (U) 7.0 [pH] Normal 5-9 [facility] Comment on above: Performed By: #### ERUM WALLACERO #### [facility] [address] [place] [address] Dr. Esthela Stevens SPEC GRAVITY 1.015 Normal 1.005-<=1.025 [facility] Comment on above: Performed By: #### MAKENZIE WALLACE #### [facility] [address] [place] [address] Dr. Esthela Stevens UA PROTEIN Negative Normal NEGATIVE/ TRACE [facility] Comment on above: Performed By: #### MAKENZIE WALLACE #### [facility] [address] [place] [address] Dr. Esthela Stevens UR MICRO IND INDICATED Normal [facility] Comment on above: Performed By: #### MAKENZIE WALLACE #### [facility] [address] [place] [address] Dr. Esthela Stevens Urobilinogen Qn (U) 0.2 {Emeka'U}/dL Normal 0.2 - 1. 0 [facility] Comment on above: Performed By: #### ERUM WALLACERO #### [facility] [address] [place] [address] Dr. Esthela Stevens LACTATE/LACTIC ACIDon 2021 Lactate [Moles/Vol] 1.3 mmol/L Normal 0.4-1.9 [facility] Comment on above: Performed By: #### P REG #### [facility] [address] [place] [address] Dr. Esthela Stevens LIPASEon 02-03-2022 Lipase [Catalytic activity/Vol] 58.0 U/L Critically low 73.0-393.0 [facility] Comment on above: Performed By: #### L IPA, CMP #### [facility] [address] [address] [address] Esthela Stevens PREG HCG QUALon 02-03-2022 , QUAL Negative Normal NEGATIVE [facility] Comment on above: Performed By: #### L IVER, LDH, BMP #### [facility] [address] [place] [address] Dr. Eshtela Stevens PROF 14(COMP METB)on 022 Albumin [Mass/Vol] 3.8 g/dL Normal 3.4-5.0 [facility] Comment on above: Performed By: #### L IPA, CMP #### [facility] [address] [place] [address] Dr. Esthela Stevens Albumin/Globulin [Mass ratio] 1.0 {ratio} Normal [facility] Comment on above: Performed By: #### L IPA, CMP #### [facility] [address] [place] [address] Dr. Esthela Stevens ALP [Catalytic activity/Vol] 75 U/L Normal 46-116 [facility] Comment on above: Performed By: #### L IPA, CMP #### [facility] [address] [place] [address] Dr. Esthela Stevens ALT [Catalytic activity/Vol] 37 U/L Normal 14-59 [facility] Comment on above: Performed By: #### L IPA, CMP #### [facility] [address] [place] [address] Dr. Esthela Stevens Anion gap [Moles/Vol] 14.0 mmol/L Normal [facility] Comment on above: Performed By: #### L IPA, CMP #### [facility] [address] [place] [address] Dr. Esthela Stevens AST [Catalytic activity/Vol] 14 U/L Critically low 15-37 [facility] Comment on above: Performed By: #### L IPA, CMP #### [facility] [address] [place] [address] Dr. Esthela Stevens Bilirubin [Mass/Vol] 0.2 mg/dL Normal 0.2-1.0 [facility] Comment on above: Performed By: #### L IPA, CMP #### [facility] [address] [address] [address] Esthela Stevens Calcium [Mass/Vol] 8.9 mg/dL Normal 8.5-10.1 [facility] Comment on above: Performed By: #### L IPA, CMP #### [facility] [address] [address] [address] Esthela Stevens Chloride [Moles/Vol] 103 mmol/L Normal 98-107 [facility] Comment on above: Performed By: #### L IPA, CMP #### [facility] [address] [address] [address] Esthela Stevens CO2 [Moles/Vol] 25.2 mmol/L Normal 21.0-32.0 [facility] Comment on above: Performed By: #### L IPA, CMP #### [facility] [address] [place] [address] Dr. Esthela Stevens Creatinine [Mass/Vol] 0.72 mg/dL Normal 0.55-1.02 [facility] Comment on above: Performed By: #### L IPA, CMP #### [facility] [address] [place] [address] Dr. Esthela Stevens EGFR-AF SWISS >60 Normal >=60 [facility] Comment on above: Performed By: #### L IPA, CMP #### [facility] [address] [place] [address] Dr. Esthela Stevens EGFR-NON AF SWISS >60 Normal >=60 [facility] Comment on above: Performed By: #### L IPA, CMP #### [facility] [address] [place] [address] Dr. Esthela Stevens Globulin (S) [Mass/Vol] 3.7 g/dL Normal [facility] Comment on above: Performed By: #### L IPA, CMP #### [facility] [address] [address] [address] Esthela Stevens Glucose [Mass/Vol] 101 mg/dL Normal 74-[address] [facility] Comment on above: Performed By: #### L IPA, CMP #### [facility] [address] [address] [address] Esthela Stevens Potassium [Moles/Vol] 4.2 mmol/L Normal 3.5-5.1 [facility] Comment on above: Performed By: #### L IPA, CMP #### [facility] [address] [place] [address] Dr. Esthela Stevens Protein [Mass/Vol] 7.5 g/dL Normal 6.4-8.[address] [facility] Comment on above: Performed By: #### L IPA, CMP #### [facility] [address] [place] [address] Dr. Esthela Stevens Sodium [Moles/Vol] 138 mmol/L Normal 136-145 [facility] Comment on above: Performed By: #### L IPA, CMP #### [facility] [address] [place] [address] Dr. Esthela Stevens Urea nitrogen [Mass/Vol] 11.0 mg/dL Normal 7.0-18.0 [facility] Comment on above: Performed By: #### L IPA, CMP #### [facility] [address] [place] [address] Dr. Esthela Stevens Urea nitrogen/Creatinine [Mass ratio] 15.3 mg/mg Normal [facility] Comment on above: Performed By: #### L IPA, CMP #### [facility] [address] [place] [address] Dr. Esthela Stevens URINE MICROSCOPIC ONLYon BACTERIA NONE SEEN Normal NONE SEEN [facility] Comment on above: Performed By: #### E RUR, UMICRO #### [facility] [address] [place] [address] Dr. Esthela Stevens Bacteria identified Cx Nom (U) NOT INDICATED Normal [facility] Comment on above: Performed By: #### E RUR, UMICRO #### [facility] [address] [place] [address] Dr. Esthela Stevens CAST NONE SEEN Normal NONE SEEN [facility] Comment on above: Performed By: #### E RUR, UMICRO #### [facility] [address] [address] [address] Esthela Stevens Crystals LM Nom (Urine sed) NONE SEEN Normal NONE SEEN [facility] Comment on above: Performed By: #### Toñito KIRKR, UMICRO #### [facility] [address] [address] [address] Esthela Stevens Epithelial cells LM Ql (Urine sed) FEW Abnormal NONE SEEN /RARE [facility] Comment on above: Performed By: #### Toñito SANCHEZ, UMICRO #### [facility] [address] [address] [address] Esthela Stevens MUCOUS NONE SEEN Normal NONE SEEN [facility] Comment on above: Performed By: #### Toñito SANCHEZ UMICRO #### [facility] [address] [place] [address] Dr. Esthela Stevens RBC 0-2 Normal 0-2 [facility] Comment on above: Performed By: #### Toñito SANCHEZ UMICRO #### [facility] [address] [address] [address] Esthela Stevens WBC 2-5 Abnormal NONE SEEN [facility] Comment on above: Performed By: #### Toñito SANCHEZ, UMICRO #### [facility] [address] [address] [address] Esthela Stevens Test, Urineon -0 Beta HCG ( test) Ql (U) Negative [facility] Other Urinalysis - AUTOMATEDon Appearance (U) clear [employer] Other Bilirubin Ql (U) Negative [employer] [facility] [employer] Other Color (U) yellow [facility] Other Glucose Ql (U) Negative [employer] Other Hemoglobin Ql (U) Negative [employer] oast [employer] Other Ketones Ql (U) 15 [employer] Other Leukocyte esterase Test strip Ql (U) Negative [facility] Other Nitrite Ql (U) Negative [employer] Other pH (U) 7.0 [pH] [facility] Other Protein Ql (U) Negative [employer] Other Specific gravity (U) [Rel density] 1.020 [facility] Other Urobilinogen (U) [Mass/Vol] 0.2 mg/dL [facility] Other Urinalysis - AUTOMATED [facility] Other Coding Summary.on 02-18-2021 Coding Summary. [id number] G h0bWw+PGhlYWQ+JF7ZDFJ sO46nhFOkeS1JW4gDUL0O ZFLSSZUGWS5UBV2deHV8T NxcY7NkqdKf VlxdkJIrXP49LFb8UQB9u AzbBHwciM6wfZSaL3w3Bo PiJC08cH46PCovBNNqArC 3LjZpbjsgbWFy X4vfItIebZRiTzr+PHRhY mxlIHdpZHRoPScxMDAlJy XkjIatIZ5hSz6lMKRtNLP vbGxhcHNlOiBj f8zmADVsDAguNC2qxWfvR 4QtzLX7NMHqi3d8Rw45nM I+NQRuUJL9dMmvXLmcr91 2PjIus1moVIX0 zJKxLMhaRSQ3V19vq6R3P QNfTQQhCBF1rTO8lE9wzE xqiwqeQ0OrwDShOvL9EAL 0sIEgeZ6bsNni sfunjW5pFof+C74MTP4VT FEFKE8FLqw9P3XcMsghnS I+RM85LQVfXL95aYSxcGJ kk9pbgJr6ZvCd UHFxTFN2qKqtLXbvf1GlO YOrR69erWMpn7T1WDOhdE xleKVuReRmgMN4qM4dXZa puiuti6tgezxu Cqaiw6oysu48mI21T45hF KucLWMlJPM1OHRmTONypS tath8dyP1vIb8+ZFrcc3p da3jjlUz5IlXk FBGyzwSusUudYMT9p4YzT q75A3KpmOimu8BzDut2iy 66rIMnv2H7eFI0RBzuMFW omB0nLNqhZuJ6 DGBiNoZohB01uFMtHZjrW a1gaRhjsUdgQA0lFAUaav quEOKetL4xNFYioWZzzXw bEJ5mNHNpsfbj w465YtJvEDQ1TZNeqRQhL 1SuaJ2tKtGfTWHgSLWwY8 WagXKzPOsyQ332IGalVhT 0RIOyypBtN0Mz EPGgwCrwOhL5n2F8Ue6Da 5PidmgpBQG7UVelULV5Gb PbDsKuUuC6V9ZnTvv9SBH vvJjnMB2fW6Ng ZPVthukpujmooLI3GIViX IKwaV79sRGzEJqvZa3lb3 U4c751GKWxSIRepT61Fo2 udDogMTBwdCBU nL0tkblst5sjjyxoMpGnS ZUoVZe8ZZc1BXXqcVqqFz DxGRA5YpN7JOO8xENdvK8 vfEbdozmohW1m Oyc+K31ktY1hJCK6IUH6g iknWNBtkeSyPQ56RK73O9 RyPjwvdGFibGU+PGRpdiB hbFejGL2rCkNe d5ujt0EgVIimX2CmIVRhE KleFyk9NUFbXSB7vVE0hA 7hFMPcCPyfz6E9lTU4U8C ixmYieo3vp4ut WRHjKNzoB17xfYGdl2P2A ZHiuOS7DOAceAhsFlCspO 93Oyc+TDIuoVzih9QhMbw ju4osq7zcyCv3 MsPqZCSwnqSqbXhlAGR3q 0CbIk28W30uPLvhLOSyFD QsMOQpRLWojHzoyp5osH1 wIi8+PGNvbCB3 oLS7vS5bWJOtOrF8QUhrA 983HxSukXNuMiqec4cdz7 xghNx2ZlUdWWClenIcqBo rHTM9k4UhPl59 V34dOXeiNEWdUFQnNWZxS WErdSkubl9tpB2tMi3+PC 2yg1mwwc42pY92iBU+PHR qRZT3dAkbOYqk VHAmxD9oMUnaZaN5PDCvU cFrcN64oOCcQJcwGj8npW uudQpcVO4gHPMsztiyl23 2ElAna9nfVKXm aNVgKOkgEWK2C13df4X8X DZwSDUhYJQ0hRC9hE6uxN lnbjogbGVmdDsgdmVydGl rSRokEBetE415 IHRvcDsnPlBhdGllbnQgT gCeCSj8U9PuWvr7QVXpaU uiIQ8xdEDaMPubSy9neAt xbTczLA7dQFYz hmerr252XuZku5iqZKXrs EKiYMdaENR0F16rp7L9FE HdQDNoIEW5qPE1zK2iwYl nbjogbGVmdDsg ovEbcDovVOroYUquS136I HRvcDsnPkJpcnRoIERhdG V1LX96LV82zEDxk4Q0fPE 5X3EtQYZrztst cqqczGO1JBYiFSUxyS87I x4vjOnwUa3oTNSlIZP2BF KniVEaE0AunK5mOoIdZLA kCLLvD0NdfWOy NYrvB375HOrgQuZ0LGBsb wRiH5FnTWZqsTruBjL4x4 I7Eo4DN3L9ER64XR73mEG wa6Z0rBA3K1Mn PCMaptqdvrdsvRR5RIRiK XLlpI43Cf2oqLohTl0iYL FtJEW0MZEsaUAyF7RidY0 yOiAjMDAwMDAw N3NmeHLoTYliE923JTseQ tJ2EDIczqOcA9TrHHYckS ojNvW6v7E1Ew3EACo1VF3 3ST11uCSpl5T1 xDE0U6UhCFOiuasdnncvl XG3SUVkSIFylT72Fn5bwF wrHw5sJIZrFKD7JCLciLN nA7LsfA8cJqHj UJOkZBEoH1XfuVPfVKalI 771ELfgOdJ5ORShzfWtS3 LyKWQniWqoSbN2r6U6Fn3 RBNMbSJ14XRF0 kPT6VE97JZ39J5CyZdhrn GFibGU+PHRhYmxlIHdpZH RoPScxMDAlJyBzdHlsZT0 gQs9uBHKaJYCs yMpbkJGhOgMhj1spGFBpR LcgOW8cmYbyH1DvhFG7EU Lxz3k4Ud63N76zY6KksFT +LFKlnQH6kDQ2 hW5kHoBqYdH9IYirA651X pEqgOQsHpimx1rpe0fztM k0PeH8EIPdhvPbvLqtPQJ 5c2HzSr01P81s IHdpZHRoPSIxNSUiIHZhb Wsryh7zyD6nGj4+PGNvbC B4fPO0qZ9qRwEuVrM2MYq dC951BoBjtXTt Qogzm6wlz2gggMv9UmIvZ TAmsnXrjThbQON7n2XaFz 11C0KqeGpno6WyKvn7cm0 9xHCtd3R5iDD1 I7UcJKVgmnkbhJIxoOahI U0cIYNrdzcbRNWamE5sYC SaD5v2KjKeIuB8HRwwO8R efaF9BLDziDSv FZvvCGL8V53lk0O2QJAmI GLbSWE2xAM7gK8wzWgrzu ogbGVmdDsgdmVydGljYWw kNVqkN982IOFp jJjoVDWeaY8sFFAmdETei KxcMP9eNBNlftmaOxnJRN hKItowH5MZBTRIFRm2Z9A yYdg8XZWjaUah JL5ceLNrPKwrZb2qmLcxo ZutMX6uKUKkgscfKYSskX 9vBBWkkGLzlWgfBG4pSQJ dvrbcl414QoId ZPL8BRRbfMBxC5KnfL0bL nDgVLReDKUzN9SfpIKiVG dqG353XGhxWcF7RIXmseR mK4PiFFRshZap XiW0z9U9Ow8mRC6zOK0iE Fq9VT18YK78kODrq3N2jH P4B3TbDRPzcjzymyxsiFN 8YQOgAWFlzC51 jVInAFibDe8fx2S9t636U UZmOAOogY79Al4qlOajNY GwjMLPkF7vcvxqo4dnxzj gIzAwMDAwMDt0 HBk9WYOqlUrxGeLuRVF4P dK1EZW8sAZywQ4vwGmpbs xapU6bByt+MjMgWWVhcnM 2U8HdQva0PSEm vNgzOS4djSZnHOcrYu4hw AewkLllOY9cPFSzrwdlIK ZixK2ePUEnoXCzfQgeRN2 hSOSkylcvg635 EuLvDEB8VZPrwDLsM3Raa M1kToUwSKOsESNwM5YjgE EaIVaiA159SZydMmY1DFH nkjBlW9HtTCNq uKpwQrM4i4V5Gu6ZAY8av JX2M8DjGub3USWvtHvmZJ 0itHEtESfaRq4plSmgoGc fJX7wWPIlhddg LZNmaP2eJMHmyWNnoGajX C8wNFYipbbta796UmTmJS H6CVVqeIZwR2RnbB4wBiY zDJUuMPSkJ5Qq cYVbIUzgJ603CFkbDvX6B LZwlzGeI2OnUBJwyFryPs F3t2R3Ni2VzCVtK5PpH2v 9X1IoEeybcFY+ XI91ODNiUP48zMOgeHPca 2pjgCy5JxPeUVRjWJE5uJ tfWHues6FlLJWgY96ruMP mh2E0RHRglJnc yLLnZtJxbES9dI1fJHzuc edut1ywsrqaXrbuw4epxp 56rL92Y21sDXmoDRVuTQQ zMCUiIHZhbGln lz0vlJ5xEr5+GZOceJP0d ZZ7kS1aXvZqOkI8XGkwC8 33MyMtlAWpGlmtx8mkj2j gqHz5NeWaPHRw rlTtxNguLXD5x7XbSo19S 29sIHdpZHRoPSIyMCUiIH NrgGdrrj7bwE2sFo3+PC9 gz3riof90bJ52 dHI+RWWaGOA0zXgwLBpfZ XDeoH9jKVgiTeZ0FKFfDz IizT76fDRdFUqiQf0lqLl zeQhoOL4gWAEn gpetl831NmPma2bsAAWfa MLlPSfsAYC2Y26qo7G9ZE SkRDLqIUR9dJJ3gO3boHl nbjogbGVmdDsg cuBoyKhjZMsdBKglR667U UYcjPgzVxImbUCpC9jhcj RHSM3cMrxkiGR+PHRkIHN 0eWxlPSdwYWRk pK7gIFRpN1o6WyFiLuD4T EhuA1EziuX0TFUxwSLzKP AwvISXjZ5nwyqom8kpvwp gIzAwMDAwMDt0 QHb5ADLjyMeoEhXtLZL6B rR6QXA4eJHajK2qtKttjc eltV7hZzp+RklOOjwvdGQ +CYPkSWD7fJzl JIcyDLFomM7iRXCtP3u5X tCvFmL1SCaxG3PezrR7WS HluEGtDCVmeRDZhB5qkgw nr9ujfqgaWgMi RDCxYCt4MSe3HVHjeHraK pQrSFH6ZaY9AYK3uGZmmT 2ymBoahoinfK8tQil+TVJ OOjwvdGQ+PHRk CHO8xRghQAtsASUzoV7aA TSyI5l3NrIwRuD0PSctI5 BdrqL3KLXcpAHmIZCdvNM JnM5tkpadb1sp jpqkPnUhBUViNPs6KGr1E BYovJkaOuXuXEU9TdL8AL O6bEUqeO4joAahkkwfcL7 wOyc+FVK9NUN7 MN23KK58Q9PfCldvgBDee +PHRhYmxlIHdpZHRoPS dxFRLfIoYynQrcGY5zDt3 yZGVyLWNvbGxh cHNl (more content not included)... Normal [facility] Consent for Treatmenton Consent for Treatment [id number]#1 .00CD:127 Normal [facility] Discharge Instructionson Discharge Instructions [id number]# 1.00CD:127 Normal [facility] ED Clinical Summaryon 2020 ED Clinical Summary [place] [id number] ED Clinical Summary Person Information Name: ZAINAB MCCLURE Johanna/[facility] Age: 25 Years : 1995 Sex: Female Language: Tristanian PCP: ERIN SAMS CNP Marital Status: Single [...] 02/17/2021 11:52:53 02/17/2021 11:52:53 02/17/2021 11:52:53 ADDRESS: [address] [place] [address] [facility] [phone] PHYS DOC NOTES: MEDICAL INFORMATION: Prescriptions Given: New Medications Printed Prescriptions lorazepam (Ativan 1 mg Tab) 1 Tablets By Mouth every 8 hours for 2 Days. Take one by mouth every eight hours as needed. Refills: 0. PATIENT EDUCATION INFORMATION: Instructions: Suicidal Feelings: How to Help Yourself; Managing Anxiety, Adult Follow up: With: Address: When: [facility] In 1 day 02/18/2021 With: Address: When: ERIN SAMS [address] [place] [address] [phone] Business (1) In 3 days DIAGNOSIS: Anxiety; Suicidal ideation Normal [facility] ED Note-Physicianon 02-18-20 ED Note-Physician Basic Information [...] Oral, q8hr Follow-up With When Contact Information [facility] In 1 day 02/18/2021 EDT Additional Instructions: ERIN SAMS In 3 days [address] [place] [address] [phone] Business (1) Additional Instructions: Patient Education Suicidal Feelings: How to Help Yourself Managing Anxiety, Adult Problem List/Past Medical History Ongoing No qualifying data Historical No qualifying data Medications Inpatient No active inpatient medications Home No active home medications Allergies No Known Medication Allergies Lab Results No qualifying data available. Diagnostic Results No qualifying data available. Normal [facility] Comment on above: Result Comment: Elec tronically Signed By: Carol Childers DO\.br\Date and Time Signed: 02/17/21 11:41 [...] the [place] ? The [facility] helpline (211 in the [place] ? Go to your nearest emergency department. ? Call a suicide hotline to speak with a trained counselor. The following suicide hotlines are available in the [place]: ? 6-941-056-TALK ( ). ? 0-462-JXWAJOW ( ). ? . This is a hotline for Cambodian speakers. ? . This is a hotline for TTY users. ? 7-990-4-U-RAMILA ( ). This is a hotline for lesbian, escobar, bisexual, transgender, or questioning youth. ? For a list of hotlines in [place], visit www.suicide.org/hotli eliseo/international/can qgk-yunintu-cnpavrha. html ? Contact a crisis center or a local suicide prevention center. To find a crisis center or suicide prevention center: ? Call your local hospital, clinic, community service organization, mental health center, social service provider, or health department. Ask for help with connecting to a crisis center. ? For a list of crisis centers in the [place], visit: suicidepreventionlife line.org ? For a list of crisis centers in [place], visit: suicideprevention.wv How to help yourself feel better ? [...] even if you do not feel sociable. Kfsc-tl-lkkx conversation is best to help them understand [...] can help you feel better. ? Take dqxu-lge-cqtyiat and prescription medicines only as told by [...] more information ? National Suicide Prevention Lifeline: www.suicideprevention lifeline.org ? Hopeline: www.hopeline.com ? [employer] for Suicide Prevention: www.afsp.org ? The Ramila Project (for lesbian, escobar, bisexual, transgender, or questioning youth): www.thetrevorproject. org Contact a health care provider if: ? You feel as though you are a burden to others. ? You feel agitated, angry, vengeful, or have extreme mood swings. ? You have withdrawn from family and friends. Get (more content not included)... Normal [facility] ED Patient Summaryon 021 ED Patient Summary [place] [id number] Patient Discharge Instructions Person Information Name: ZAINAB MCCLURE Age: 25 Years Arrival Date: 02/17/2021 09:42:11 Discharge Diagnosis: Anxiety; Suicidal ideation Primary Care Physician: ERIN SAMS CNP Provider Information Primary Provider: Carol Childers DO Advanced Education Program Associate:None The exam and treatment you received in the Emergency Department were for an urgent problem and are not intended as complete care. It is important that you follow up with a doctor, nurse practitioner, or physician?s glass ribbon machine operator assistant for ongoing care. If your symptoms become worse or you do not improve as expected and you are unable to reach your usual health care provider, you should return to the Emergency Department. We are available 24 hours a day. ZAINAB MCCLURE has been given the following list of patient education materials, prescriptions and follow-up instructions: Follow-up Instructions: With: Address: When: [facility] In 1 day 02/18/2021 With: Address: When: ERIN SAMS [address] [place] [address] [phone] Business (1) In 3 days In the [...] opioids can be used to help relieve ztywdbgl-kt-fpyolc pain and are often prescribed following a [...] guidance from the Food and Drug Administration (www.fda.gov/Drugs/Re sourcesForYou). ? Visit www.cdc.gov/drugoverd ose to learn about the risks of opioids abuse and overdose. ? If you believe you may be struggling with addiction, tell your health care professio (more content not included)... Normal [facility] Valuables Checkliston 2020 Valuables Checklist [id number]# 1.00CD:127 Normal [facility] Vital Signs Date Time Vital Sign Value Performing Clinician Facility 04-13-2024 18:10-0400 Diastolic blood pressure 74 mm[Hg] Andreas Ortega MD, MPH Work Phone: [facility] 04-13-2024 18:10-0400 Heart rate 72 /min Andreas Ortega MD, MPH Work Phone: [facility] 04-13-2024 18:10-0400 Systolic blood pressure 133 mm[Hg] Andreas Ortega MD, MPH Work Phone: [facility] 02-07-2024 12:49-0400 Diastolic blood pressure 76 mm[Hg] Yudelka Moralez APRN-BENCH MOVER Work Phone: [facility] 02-07-2024 12:49-0400 Heart rate 58 /min Yudelka Moralez APRN-BENCH MOVER Work Phone: [facility] 02-07-2024 12:49-0400 Systolic blood pressure 124 mm[Hg] Yudelka Moralez APRN-BENCH MOVER Work Phone: [facility] 02-07-2024 08:42-0400 Blood Pressure Location [facility] 02-07-2024 08:42-0400 Diastolic blood pressure 70 mm[Hg] [facility] 02-07-2024 08:42-0400 Heart rate 70 /min [facility] 02-07-2024 08:42-0400 Respiratory rate 18 /min [facility] 02-07-2024 08:42-0400 Systolic blood pressure 116 mm[Hg] [facility] 01-06-2024 15:06-0400 Body height 155 cm Carol Summers MD, PhD Work Phone: [facility] 01-06-2024 15:06-0400 Body mass index (BMI) [Ratio] 29.57 kg/m2 Carol Summers MD, PhD Work Phone: [facility] 01-06-2024 15:06-0400 Body temperature 97.9 [degF] Carol Summers MD, PhD Work Phone: [facility] 01-06-2024 15:06-0400 Body weight 71.03 kg Carol Summers MD, PhD Work Phone: [facility] 01-06-2024 15:06-0400 Diastolic blood pressure 77 mm[Hg] Carol Summers MD, PhD Work Phone: [facility] 01-06-2024 15:06-0400 Heart rate 65 /min Carol Summers MD, PhD Work Phone: [facility] 01-06-2024 15:06-0400 Respiratory rate 16 /min Carol Summers MD, PhD Work Phone: [facility] 01-06-2024 15:06-0400 SaO2% (BldA) [Mass fraction] 99 % Carol Summers MD, PhD Work Phone: [facility] 01-06-2024 15:06-0400 Systolic blood pressure 125 mm[Hg] Carol Summers MD, PhD Work Phone: [facility] 11-26-2023 09:32-0400 Body height 154.9 cm Dolores Johnson DOOR LINER HELPER-[employer]ENCH MOVER Work Phone: [facility] 11-26-2023 09:32-0400 Body mass index (BMI) [Ratio] 30.61 kg/m2 Dolores Johnson DOOR LINER HELPER-[employer]EN[employer] MOVER Work Phone: [facility] 11-26-2023 09:32-0400 Body weight 73.48 kg Dolores Johnson DOOR LINER HELPER-[employer] MOVER Work Phone: [facility] 11-26-2023 09:32-0400 Diastolic blood pressure 76 mm[Hg] Dolores Johnson DOOR LINER HELPER-[employer] MOVER Work Phone: [facility] 11-26-2023 09:32-0400 Heart rate 65 /min Dolores Johnson DOOR LINER HELPER-[employer] MOVER Work Phone: [facility] 11-26-2023 09:32-0400 Respiratory rate 16 /min Dolores Johnson DOOR LINER HELPER-[employer]ENCH MOVER Work Phone: [facility] 11-26-2023 09:32-0400 SaO2% (BldA) [Mass fraction] 98 % Dolores Johnson DOOR LINER HELPER-[employer]ENCH MOVER Work Phone: [facility] 11-26-2023 09:32-0400 Systolic blood pressure 110 mm[Hg] Dolores Johnson DOOR LINER HELPER-[employer]ENCH MOVER Work Phone: [facility] 08-24-2023 10:09-0500 Body mass index (BMI) [Ratio] 32.44 kg/m2 Ron Alden DO Work Phone: [facility] 08-24-2023 10:09-0500 Body weight 83.06 kg Ron Alden DO Work Phone: [facility] 08-24-2023 10:09-0500 Diastolic blood pressure 68 mm[Hg] Ron Alden DO Work Phone: [facility] 08-24-2023 10:09-0500 Systolic blood pressure 110 mm[Hg] Ron Alden DO Work Phone: [facility] 03-11-2023 09:53-0400 Body height 154.9 cm [facility] Work Phone: [facility] 12-10-2022 12:07-0400 Body height 155.2 cm Archie Hugo MD, PhD Work Phone: [facility] Comment on above: without shoes 12-10-2022 12:07-0400 Body mass index (BMI) [Ratio] 30.64 kg/m2 Archie Hugo MD, PhD Work Phone: [facility] 12-10-2022 12:07-0400 Body temperature 97.81 [degF] Archie Hugo MD, PhD Work Phone: [facility] 12-10-2022 12:07-0400 Body weight 73.8 kg Archie Hugo MD, PhD Work Phone: [facility] Comment on above: without shoes 12-10-2022 12:07-0400 Diastolic blood pressure 72 mm[Hg] Archie Hugo MD, PhD Work Phone: [facility] 12-10-2022 12:07-0400 Heart rate 77 /min Archie Hugo MD, PhD Work Phone: [facility] 12-10-2022 12:07-0400 Respiratory rate 14 /min Archie Hugo MD, PhD Work Phone: [facility] 12-10-2022 12:07-0400 SaO2% (BldA) [Mass fraction] 99 % Archie Hugo MD, PhD Work Phone: [facility] Comment on above: room air 12-10-2022 12:07-0400 Systolic blood pressure 118 mm[Hg] Archie Hugo MD, PhD Work Phone: [facility] 10-22-2022 13:57-0400 Body height 154.9 cm Rebekah Suero MD Work Phone: [facility] 10-22-2022 13:57-0400 Body mass index (BMI) [Ratio] 30.33 kg/m2 Rebekah Suero MD Work Phone: [facility] 10-22-2022 13:57-0400 Body temperature 97.59 [degF] Rebekah Suero MD Work Phone: [facility] 10-22-2022 13:57-0400 Body weight 72.8 kg Rebekah Suero MD Work Phone: [facility] 10-22-2022 13:57-0400 Diastolic blood pressure 62 mm[Hg] Rebekah Suero MD Work Phone: [facility] 10-22-2022 13:57-0400 Heart rate 62 /min Rebekah Suero MD Work Phone: [facility] 10-22-2022 13:57-0400 Respiratory rate 20 /min Rebekah Suero MD Work Phone: [facility] 10-22-2022 13:57-0400 SaO2% (BldA) [Mass fraction] 99 % Rebekah Suero MD Work Phone: [facility] 10-22-2022 13:57-0400 Systolic blood pressure 119 mm[Hg] Rebekah Suero MD Work Phone: [facility] 10-22-2022 10:19-0400 Body height 157.5 cm Yudelka Moralez DOOR LINER HELPER-[employer] MOVER Work Phone: [facility] 10-22-2022 10:19-0400 Body mass index (BMI) [Ratio] 28.66 kg/m2 Yudelka Moralez DOOR LINER HELPER-[employer] MOVER Work Phone: [facility] 10-22-2022 10:19-0400 Body weight 71.1 kg Yudelka Moralez DOOR LINER HELPER-[employer] MOVER Work Phone: [facility] 10-22-2022 10:19-0400 Diastolic blood pressure 76 mm[Hg] Yudelka Moralez DOOR LINER HELPER-[employer] MOVER Work Phone: [facility] 10-22-2022 10:19-0400 Systolic blood pressure 126 mm[Hg] Yudelka Moralez DOOR LINER HELPER-[employer]EN[employer] MOVER Work Phone: [facility] 10-22-2022 07:38-0400 Body height 157.5 cm Yudelka Moralez DOOR LINER HELPER-[employer]ENCH MOVER Work Phone: [facility] 10-22-2022 07:38-0400 Diastolic blood pressure 76 mm[Hg] Yudelka Moralez DOOR LINER HELPER-[employer]CH MOVER Work Phone: [facility] 10-22-2022 07:38-0400 Heart rate 73 /min Yudelka Moralez DOOR LINER HELPER-[employer] MOVER Work Phone: [facility] 10-22-2022 07:38-0400 Systolic blood pressure 126 mm[Hg] Yudelka Moralez DOOR LINER HELPER-[employer]EN[employer] MOVER Work Phone: [facility] 10-07-2022 11:05-0400 Body height 157.5 cm Yudelka Moralez DOOR LINER HELPER-[employer]ENCH MOVER Work Phone: [facility] 10-07-2022 11:05-0400 Body mass index (BMI) [Ratio] 28.66 kg/m2 Yudelka Moralez DOOR LINER HELPER-[employer] MOVER Work Phone: [facility] 10-07-2022 11:05-0400 Body temperature 98.2 [degF] Yudelka Moralez DOOR LINER HELPER-[employer]OVER Work Phone: [facility] 10-07-2022 11:05-0400 Body weight 71.08 kg Yudelka Moralez DOOR LINER HELPER-[employer] MOVER Work Phone: [facility] 10-07-2022 11:05-0400 Diastolic blood pressure 74 mm[Hg] Yudelka Moralez DOOR LINER HELPER-[employer] MOVER Work Phone: [facility] 10-07-2022 11:05-0400 Heart rate 81 /min Yudelka Moralez DOOR LINER HELPER-[employer]ENCH MOVER Work Phone: [facility] 10-07-2022 11:05-0400 Respiratory rate 16 /min Yudelka Moralez DOOR LINER HELPER-[employer]ENCH MOVER Work Phone: [facility] 10-07-2022 11:05-0400 SaO2% (BldA) [Mass fraction] 99 % Yudelka Moralez DOOR LINER HELPER-[employer]ENCH MOVER Work Phone: [facility] 10-07-2022 11:05-0400 Systolic blood pressure 120 mm[Hg] Yudelka Moralez DOOR LINER HELPER-[employer]EN[employer] MOVER Work Phone: [facility] 08-19-2022 15:43-0500 Diastolic blood pressure 88 mm[Hg] Andreas Ortega MD, MPH Work Phone: [facility] 08-19-2022 15:43-0500 Systolic blood pressure 117 mm[Hg] Andreas Ortega MD, MPH Work Phone: [facility] 07-08-2022 07:50-0500 Body height 157.5 cm Andreas Ortega MD, MPH Work Phone: [facility] 07-08-2022 07:50-0500 Body mass index (BMI) [Ratio] 28.73 kg/m2 Andreas Ortega MD, MPH Work Phone: [facility] 07-08-2022 07:50-0500 Body temperature 98.01 [degF] Andreas Ortega MD, MPH Work Phone: [facility] 07-08-2022 07:50-0500 Body weight 71.26 kg Andreas Ortega MD, MPH Work Phone: [facility] 07-08-2022 07:50-0500 Diastolic blood pressure 77 mm[Hg] Andreas Ortega MD, MPH Work Phone: [facility] 07-08-2022 07:50-0500 Heart rate 73 /min Andreas Ortega MD, MPH Work Phone: [phone] 07-08-2022 07:50-0500 Respiratory rate 16 /min Andreas Ortega MD, MPH Work Phone: [facility] 07-08-2022 07:50-0500 SaO2% (BldA) [Mass fraction] 98 % Andreas Ortega MD, MPH Work Phone: [facility] 07-08-2022 07:50-0500 Systolic blood pressure 121 mm[Hg] Andreas Ortega MD, MPH Work Phone: [facility] 06-09-2022 13:10-0500 Body mass index (BMI) [Ratio] 29.3 kg/m2 Raina Eliseo DOOR LINER HELPER-[employer]ENCH MOVER Work Phone: [facility] 06-09-2022 13:10-0500 Body temperature 98.6 [degF] Raina Eliseo DOOR LINER HELPER-[employer]ENCH MOVER Work Phone: [facility] 06-09-2022 13:10-0500 Body weight 72.67 kg Raina Eliseo DOOR LINER HELPER-[employer] MOVER Work Phone: [facility] 06-09-2022 13:10-0500 Diastolic blood pressure 60 mm[Hg] Raina [place] DOOR LINER HELPER-[employer]ENCH MOVER Work Phone: [facility] 06-09-2022 13:10-0500 Heart rate 80 /min Raina [place] DOOR LINER HELPER-[employer]ENCH MOVER Work Phone: [facility] 06-09-2022 13:10-0500 Respiratory rate 16 /min [facility] 06-09-2022 13:10-0500 SaO2% (BldA) [Mass fraction] 98 % [facility] Work Phone: [facility] 06-09-2022 13:10-0500 Systolic blood pressure 110 mm[Hg] [facility] Work [facility]: [facility] 05-29-2022 07:32-0500 Body temperature 98.01 [degF] Archie Hugo MD, PhD Work Phone: [facility] 05-29-2022 07:32-0500 Diastolic blood pressure 64 mm[Hg] Archie Hugo MD, PhD Work Phone: [facility] 05-29-2022 07:32-0500 Heart rate 77 /min Archie Hugo MD, PhD Work Phone: [facility] 05-29-2022 07:32-0500 Respiratory rate 16 /min Archie Hugo MD, PhD Work Phone: [facility] 05-29-2022 07:32-0500 SaO2% (BldA) [Mass fraction] 99 % Archie Hugo MD, PhD Work Phone: [facility] 05-29-2022 07:32-0500 Systolic blood pressure 100 mm[Hg] Archie Hugo MD, PhD Work Phone: [facility] 05-22-2022 15:50-0400 Body height 157.5 cm Archie Hugo MD, PhD Work Phone: 7(796)186-692070 [address] 05-22-2022 15:50-0400 Body mass index (BMI) [Ratio] 30.73 kg/m2 Archie Hugo MD, PhD Work Phone: 9(966)911-958270 [address] 05-22-2022 15:50-0400 Body weight 76.2 kg Archie Hugo MD, PhD Work Phone: 6(700)145-488316 [place] [address] 03-31-2022 12:02-0400 Diastolic blood pressure 70 mm[Hg] [facility] DOOR LINER HELPER-BENCH MOVER Work Phone: 5(061)490-988116 [place] [address] 03-31-2022 12:02-0400 Systolic blood pressure 124 mm[Hg] [facility] DOOR LINER HELPER-BENCH MOVER Work Phone: 2(106)634-580316 [place] [address] 03-31-2022 11:53-0400 Body height 157.5 cm [facility] DOOR LINER HELPER-BENCH MOVER Work Phone: 6(053)301-738416 [place] [address] 03-19-2022 15:37-0400 Body height 158.3 cm Archie Hugo MD, PhD Work Phone: 0(627)991-535616 [place] [address] 03-19-2022 15:37-0400 Body mass index (BMI) [Ratio] 30.63 kg/m2 Archie Hugo MD, PhD Work Phone: 5(084)369-210616 [place] [address] 03-19-2022 15:37-0400 Body temperature 97.5 [degF] Archie Hugo MD, PhD Work Phone: 8(286)924-936770 [address] 03-19-2022 15:37-0400 Body weight 76.75 kg Archie Hugo MD, PhD Work Phone: 0(786)598-910416 [place] [address] 03-19-2022 15:37-0400 Diastolic blood pressure 84 mm[Hg] Archie Hugo MD, PhD Work Phone: 0(622)515-608016 [place] [address] 03-19-2022 15:37-0400 Heart rate 90 /min Archie Hugo MD, PhD Work Phone: [facility] 03-19-2022 15:37-0400 Respiratory rate 16 /min Archie Hugo MD, PhD Work Phone: [facility] 03-19-2022 15:37-0400 SaO2% (BldA) [Mass fraction] 98 % Archie Hugo MD, PhD Work Phone: [facility] 03-19-2022 15:37-0400 Systolic blood pressure 128 mm[Hg] Archie Hugo MD, PhD Work Phone: [facility] 12-22-2021 18:05-0400 Body height 152.4 cm Ava Tamika Other [facility] Other 12-22-2021 18:05-0400 Body mass index (BMI) [Ratio] 30.62 kg/m2 Ava Tamika Other [facility] Other 12-22-2021 18:05-0400 Body temperature 99 [degF] Ava Tamika Other [facility] Other 12-22-2021 18:05-0400 Body weight 71.12 kg Ava Tamika Other [facility] Other 12-22-2021 18:05-0400 Diastolic blood pressure 89 mm[Hg] Ava Tamika Other [facility] Other 12-22-2021 18:05-0400 Respiratory rate 16 /min Ava Lundberg Other [facility] Other 12-22-2021 18:05-0400 SaO2% (BldA) [Mass fraction] 99 % Ava Lundberg Other [facility] [employer] Other 12-22-2021 18:05-0400 Systolic blood pressure 129 mm[Hg] Ava Lundberg Other [facility] Other Encounters Encounter Date Encounter Type Care Provider Facility Start: 04-25-2024 ambulatory YUDELKA MORALEZ Facility:[facility] Start: 04-25-2024 End: 04-25-2024 Subsequent hospital visit by physician Yudelka Moralez DOOR LINER HELPER-BENCH MOVER Work Phone: Imaging [facility] Comment on above: Arrived Start: 04-19-2024 ambulatory ERIN SAMS [facility] Start: 04-13-2024 ambulatory ANDREAS ORTEGA Facility: [facility] Start: 04-13-2024 End: 04-13-2024 Subsequent hospital visit by physician Andreas Ortega MD, MPH Work Phone: [facility] [place] Comment on above: Arrived Start: 04-13-2024 End: 04-13-2024 ambulatory [facility] Start: 04-12-2024 ambulatory YUDELKA MORALEZ Facility:[facility] Start: 04-11-2024 End: 04-11-2024 Telephone encounter Quin Kelly Division of Medical Oncology Comment on above: Change In Symptoms Start: 04-03-2024 End: 04-03-2024 Patient encounter procedure CLINICAL REHABILITATION SPECIALIST-C Erin Sams Work Phone: [facility] Start: 04-03-2024 End: 04-03-2024 ambulatory CLINICAL REHABILITATION SPECIALIST-C Erin Sams Work Phone: [facility] Work Phone: Start: 03-13-2024 End: 03-13-2024 Telephone encounter Andreas Ortega MD, MPH Work Phone: Division of Medical Oncology Comment on above: Advice Only Start: 02-10-2024 ambulatory YUDELKA MORALEZ Facility:[facility] Start: 02-07-2024 ambulatory YUDELKA MORALEZ Facility:[facility] Start: 02-07-2024 ambulatory YUDELKA [facility] Facility:[facility] Start: 02-07-2024 End: 02-07-2024 Subsequent hospital visit by physician Yudelka Moralez DOOR LINER HELPER-BENCH MOVER Work Phone: Department of Radiology Comment on above: Arrived Start: 02-07-2024 End: 02-07-2024 ambulatory [facility] Start: 02-07-2024 End: 02-07-2024 Patient encounter procedure Diego Apodaca [facility] Start: 01-28-2024 ambulatory [facility] Facility:[facility] Start: 01-06-2024 End: 01-06-2024 Office outpatient visit 40 minutes Carol Summers MD, PhD Work Phone: Division of Medical Oncology Comment on above: 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); Diarrhea, unspecified type; Primary malignant neuroendocrine tumor of appendix; Carcinoid syndrome; Tachycardia; SOB (shortness of breath) Start: 01-06-2024 ambulatory CAROL SUMMERS Facility:[facility] Start: 12-30-2023 ambulatory [facility] Start: 11-26-2023 ambulatory YUDELKA MORALEZ Facility:[facility] Start: 11-26-2023 End: 11-26-2023 Office outpatient new 45 minutes Dolores Johnson DOOR LINER HELPER-BENCH MOVER Work Phone: General [facility] Gastrointestinal [facility] [place] Comment on above: Elevated liver enzym es (Primary Dx) Start: 11-26-2023 ambulatory YUDELKA [facility] Facility:[facility] Start: 11-11-2023 End: 11-11-2023 ambulatory LIZBET CAST Not Available Start: 11-08-2023 ambulatory [facility] Facility:[facility] Start: 11-06-2023 End: 11-06-2023 Subsequent hospital visit by physician Andreas Ortega MD, MPH Work Phone: [facility] Comment on above: Arrived Start: 11-06-2023 ambulatory ANDREAS JORDAN Facility: [facility] Start: 10-04-2023 End: 10-04-2023 ambulatory LIZBET SERENE Not Available Start: 09-25-2023 End: 09-25-2023 ambulatory Ron Alden Facility:[facility] Start: 09-20-2023 End: 09-20-2023 ambulatory [...] Subsequent hospital visit by physician Daya Vigil DOOR LINER HELPER-[employer]ENCH MOVER Work Phone: [facility] Comment on above: Arrived Start: 12-10-2022 End: [...] Subsequent hospital visit by physician Yudelka Moralez DOOR LINER HELPER-BENCH MOVER Work Phone: [facility] [place] Start: 10-22-2022 End: 10-22-2022 Subsequent hospital visit by physician Yudelka Moralez DOOR LINER HELPER-[employer]ENCH MOVER Work Phone: Imaging [facility] [place] Comment on above: Arrived Start: 10-07-2022 End: 10-07-2022 Office outpatient visit 25 minutes Yudelka Moralez DOOR LINER HELPER-[employer]ENCH MOVER Work Phone: Division of Medical Oncology Comment [...] medical examination without abnormal findings ERIN SAMS [facility] Start: 08-31-2022 End: 09-01-2022 ambulatory [...] 08-19-2022 Subsequent hospital visit by physician Yudelka DENISEBENCH MOVER Work Phone: [facility] Comment on above: Arrived Start: 08-12-2022 End: 08-12-2022 ambulatory ERINSHAVON SAMS Facility:[facility] Start: 08-05-2022 End: 08-05-2022 ambulatory ERINSHAVON CHARLESMER Facility:[facility] Start: 07-08-2022 End: 07-08-2022 Office consultation new/estab patient 80 min Andreas Ortega MD, MPH Work Phone: Division of Medical Oncology 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) Start: 06-09-2022 End: 06-09-2022 Postop follow up visit related to original px Raina Gomes APRN-BENCH MOVER Work Phone: Division of Surgical Oncology 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 Facility:[facility] Start: 04-06-2022 Encounter for preprocedural laboratory examination DR TIMMY HALL . [facility] Start: 04-04-2022 End: 04-05-2022 ambulatory ERIN SAMS Facility:[facility] Start: 04-04-2022 End: 04-05-2022 Encounter for preprocedural laboratory examination ERIN SAMS Facility:[facility] Start: 03-31-2022 End: 03-31-2022 Subsequent hospital visit by physician Raina N [place] DOOR LINER HELPER-BENCH MOVER Work Phone: [facility] [place] Comment on above: Arrived Start: 03-19-2022 End: [...] 12-22-2021 End: 12-22-2021 ambulatory Ava Lundberg Other [facility] Other Start: 12-22-2021 Office outpatient vi sit 15 minutes Ava Lundberg [facility] Procedures Date Procedure Procedure Detail Performing Clinician Start: 04-25-[address] atten uation skull base mid-thigh Yudelka Moralez DOOR LINER HELPER-[employer]ENCH MOVER Work Phone: Start: 04-13-2024 Ct abdomen & pelvis w/o contrst 1/> body re Andreas Ortega MD, MPH Work Phone: Start: 04-03-2024 Ultrasonography of b ilateral breasts CLINICAL REHABILITATION SPECIALIST-C Erin Sams Work Phone: Start: 03-11-2023 Mri abdomen w/o cont rast material Yudelka Moralez DOOR LINER HELPER-[employer]CH MOVER Work Phone: Start: 10-22-2022 Echo tthrc r-t 2d w/ wom-mode compl spec&colr d Yudelka Moralez DOOR LINER HELPER-BENCH MOVER Work Phone: Start: 10-22-2022 Ct soft tissue neck w/contrast material Yudelka Moralez DOOR LINER HELPER-[employer]ENCH MOVER Work Phone: Start: 10-22-2022 Ct thorax w/contrast material Yudelka Moralez DOOR LINER HELPER-[employer]ENCH MOVER Work Phone: Start: 10-07-2022 Natriuretic peptide Yudelka Moralez DOOR LINER HELPER-[employer]CH MOVER Work Phone: Start: 08-19-2022 Creatinine blood Marciano Ortega MD, MPH Work Phone: Start: 08-19-[address] atten uation skull base mid-thigh Yudelka Moralez DOOR LINER HELPER-[employer]ENCH MOVER Work Phone: Start: 05-29-2022 Assay of magnesium Dwaine Arnold MD Work Phone: Start: 05-28-2022 Assay of magnesium Talatek vannessa Arnold MD Work Phone: Start: 05-27-2022 Assay of magnesium Tal[place]k vannessa Arnold MD Work Phone: Start: 05-27-2022 Partial resection of small bowel using robotic assistance Diego Apodaca Start: 05-27-2022 Right colectomy Erin Apodaca Start: 05-26-2022 Assay of magnesium Dwaine Arnold [...] 03-31-2022 Ct thorax w/contrast material Raina Gomes DOOR LINER HELPER-[employer] Work Phone: Start: 03-19-2022 CBC AND ELECTRONIC DIFF Raina Gomes DOOR LINER HELPER[employer] Work Phone: Start: 03-19-2022 Complete blood count with white cell differential, automated Raina Gomes DOOR LINER HELPER[employer] Work Phone: Start: 03-19-2022 Comprehensive metabo lic panel Raina Gomes DOOR LINER HELPER[employer] Work Phone: Start: 02-03-2022 Laparoscopic appendectomy Diego Apodaca section Diego garcia Cholecystectomy Diego Ruvalcaba mini Plan of Treatment Date Care Activity Detail Author Start: 01-11-2025 End: 01-11-2025 Patient encounter procedure 01/11/2025 2:40 PM EDT Office Visit Division of Medical Oncology [address] [place] [phone] Carol Summers MD, PhD [address] [place] [address] Division of Medical Oncology Start: 06-06-2024 End: 06-06-2024 Patient encounter procedure Division of Medical Oncology Start: 05-23-2024 End: 05-23-2024 Clinical Support Encounter Clinical Lab Isrrael Law Start: 04-25-2024 End: 04-25-2024 Patient encounter procedure 04/25/2024 9:00 AM EDT Appointment Imaging [facility] [address] [place] [phone] Yudelka Moralez, DOOR LINER HELPER-BENCH MOVER [address] [place] [address] Imaging [facility] Start: 04-13-2024 Subsequent hospital visit by physician 04/13/2024 7:00 PM EDT Hospital Encounter [facility] [place] [address] [place] [address] Andreas Ortega MD, MPH [address] [address] [facility] [place] Start: 04-12-2024 End: 04-12-2024 Patient encounter procedure 04/12/2024 9:30 AM EDT Appointment Imaging [facility] [address] [place] [phone] Yudelka Moralez, DOOR LINER HELPER-BENCH MOVER [address] [place], [place] [phone] Imaging [facility] Start: 04-11-2024 End: 04-11-2025 CT Abdomen and Pelvis WO and W contrast IV CT ABDOMEN/PELVIS WITH AND WITHOUT CONTRAST Imaging STAT Primary malignant neuroendocrine tumor of appendix Expected: 04/11/2024, Expires: 04/11/2025 [facility] Comment on above: Expected: 04/11/2024, Expires: Start: 03-19-2024 Influenza vaccination [facility] Start: 03-02-2024 End: 03-02-2024 Telemedicine consultation with patient 03/02/2024 9:00 AM EDT Telemedicine General [facility] Gastrointestinal [facility] [place] [address] [facility] [address] [place] [address] Dolores Johnson, DOOR LINER HELPER-BENCH MOVER [address] [place] [address] General and Gastrointestinal [facility] [place] Start: 02-10-2024 End: 02-10-2024 Patient encounter procedure 02/10/2024 11:00 AM EDT Office Visit Division of Medical Oncology [address] [facility] [address] [place] [phone] Andreas Ortega MD, MPH [address] [place] [phone] Division of Medical Oncology Start: 01-28-2024 End: 01-28-2024 Patient encounter procedure 01/28/2024 11:30 AM EDT Appointment [facility] [address] [facility] [address] [place] [phone] Yudelka Moralez DOOR LINER HELPER-BENCH MOVER [address] [place], [place] [phone] Imaging [facility] Start: 01-28-2024 End: 01-28-2024 Clinical Support Encounter 01/28/2024 10:15 AM EDT Clinical Support Encounter Clinical Lab Isrrael Kang 1 [address] [place] [phone] Andreas Ortega MD, MPH [address] [place] [phone] Clinical Lab Isrrael Pearl 1 Start: 01-06-2024 End: 01-06-2024 Patient encounter procedure 01/06/2024 3:00 PM EDT Office Visit Division of Medical Oncology [address] [place] [phone] Carol Summers MD, PhD [address] [place] [phone] Division of Medical Oncology Start: 12-14-2023 End: 12-14-2023 Patient encounter procedure 12/14/2023 12:30 PM EDT Office Visit Cardiology [facility] [address] [place] [phone] Cheikh Coelho MD [address] [place] [phone] Cardiology [facility] 5 Start: 11-26-2023 End: 11-25-2024 [id number] PHENOTYPE [facility] Comment on above: Expected: 11/26/2023 (Approximate), Expi res: 11/25/2024 Start: 11-26-2023 End: 11-25-2024 HUNTER SCREEN IFA [facility] Comment on above: Expected: 11/26/2023 (Approximate), Expi res: 11/25/2024 Start: 11-26-2023 End: 11-25-2024 ANTI MITOCHONDRIAL ANTIBODY [facility] Comment on above: Expected: 11/26/2023 (Approximate), Expi res: 11/25/2024 Start: 11-26-2023 End: 11-25-2024 ANTI SMOOTH MUSCLE ANTIBODY [facility] Comment on above: Expected: 11/26/2023 (Approximate), Expi res: 11/25/2024 Start: 11-26-2023 End: 11-25-2024 MONOCLONAL PROT IMMUNO, SERUM [facility] Comment on above: Expected: 11/26/2023 (Approximate), Expi res: 11/25/2024 Start: 11-26-2023 End: 11-25-2024 T-TRANSGLUTAMINASE IGG/IGA, AB [facility] Comment on above: Expected: 11/26/2023, Expires: Start: 11-08-2023 End: 11-08-2023 Telemedicine consultation with patient 11/08/2023 11:00 AM EDT Telemedicine Division of Medical Oncology [address] [facility] [address] [place] [phone] Yudelka Moralez, DOOR LINER HELPER-[employer]ENCH MOVER [address] [place] [address] Division of Medical Oncology Start: 10-28-2023 End: 10-28-2023 Patient encounter procedure 10/28/2023 1:00 PM EDT Office Visit [facility] [place] [address] [place] [address] Deborah Eli, Kelton Mari MD [address] [place] [address] General [facility]astro[facility] [place] Start: 09-08-2023 End: 09-08-2023 Patient encounter procedure 09/08/2023 10:40 AM EST Routine [facility] [address] [place] [phone] Ron Ruano, [address] [facility] [address] [place] [id number] [facility] Start: 06-17-2023 End: 06-17-2023 Patient encounter procedure 06/17/2023 1:30 PM EST Office Visit Division of Surgical Oncology [address] [facility] [address] [place] [address] Archie Hugo MD, PhD [address] [place] [phone] Division of Surgical Oncology Start: 06-17-2023 End: 06-17-2023 Patient encounter procedure 06/17/2023 12:20 PM EST Appointment Imaging [facility] [address] [facility] [address] [place] [address] Archie Hugo MD, PhD [address] [place] [phone] Imaging [facility] Start: 03-19-2023 Influenza vaccination [facility] Start: 03-17-2023 End: 03-17-2023 Patient encounter procedure Division of Medical Oncology Start: 03-11-2023 End: 03-11-2023 Patient encounter procedure 03/11/2023 Office Visit Surgical Oncology Archie Hugo MD, PhD [address] [place] [phone] Division of Surgical Oncology Start: 03-11-2023 End: 03-11-2023 Patient encounter procedure Imaging [facility] Start: 12-22-2022 End: 12-22-2022 Patient encounter procedure 12/22/2022 Office Visit Cardiovascular Medicine Marisela Velsáquez, DOOR LINER HELPER-BENCH MOVER [address] [facility] [facility] [place] [address] Cardiology [facility] Start: 12-17-2022 End: 12-17-2022 Patient encounter procedure 12/17/2022 Office Visit Oncology Andreas Ortega MD, MPH [address] [place] [address] Division of Medical Oncology Start: 12-10-2022 End: 12-11-2023 CT Abdomen and Pelvis W contrast IV CT ABDOMEN/PELVIS WITH CONTRAST Imaging Routine Primary malignant neuroendocrine tumor of appendix Expected: 12/10/2022, Expires: 12/11/2023 [facility] Comment on above: Expected: 12/10/2022, Expires: Start: 12-10-2022 End: 12-11-2023 CT Chest W contrast IV CT CHEST WITH CONTRAST Imaging Routine Primary malignant neuroendocrine tumor of appendix Expected: 12/10/2022, Expires: 12/11/2023 [facility] Comment on above: Expected: 12/10/2022, Expires: 4 Start: 12-10-2022 End: 12-10-2022 Patient encounter procedure [facility] Start: 12-07-2022 End: 06-09-2023 CT Abdomen and Pelvis W contrast IV CT ABDOMEN/PELVIS WITH CONTRAST Imaging Routine Primary malignant neuroendocrine tumor of appendix Expected: 12/07/2022, Expires: 06/09/2023 [facility] Comment on above: Expected: 12/07/2022, Expires: 3 Start: 11-05-2022 End: 11-05-2022 Patient encounter procedure 11/05/2022 Office Visit Oncology Andreas Ortega MD, MPH [address] [facility] [address] [place] [address] Division of Medical Oncology Start: 10-27-2022 End: 10-27-2022 Patient encounter procedure 10/27/2022 Office Visit Cardiovascular Medicine Cheikh Coelho MD [address] [place] [address] Cardiology [facility] 5 Start: 10-27-2022 End: 10-27-2022 ambulatory 10/27/2022 Telemed Clin Support Genetics Erin Stoner, [facility] [address] [facility] [address] [place] [address] Division of Human Genetics Start: 10-21-2022 Subsequent hospital visit by physician 10/21/2022 Hospital Encounter Computerized Tomography Scan Yudelka Moralez, DOOR LINER HELPER-[employer]ENCH MOVER [address] [place], [place] [phone] [facility] [place] Start: 10-21-2022 End: 10-21-2022 Patient encounter procedure 10/21/2022 Appointment Echocardiography Yudelka Moralez, DOOR LINER HELPER-BENCH MOVER [address] [place] [address] [facility] [place] Start: 10-07-2022 End: 10-08-2023 CT Chest W contrast IV CT CHEST WITH CONTRAST Imaging Routine Carcinoid syndrome SOB (shortness of breath) Tachycardia Primary malignant neuroendocrine tumor of appendix Expected: 10/07/2022, Expires: 10/08/2023 [facility] Comment on above: Expected: 10/07/2022, Expires: 4 Start: 10-07-2022 End: 10-08-2023 CT Neck W contrast IV CT NECK WITH CONTRAST Imaging Routine Primary malignant neuroendocrine tumor of appendix Expected: 10/07/2022, Expires: 10/08/2023 [facility] Comment on above: Expected: 10/07/2022, Expires: 4 Start: 08-26-2022 End: 08-26-2022 Telemedicine consultation with patient 08/26/2022 Telemedicine Oncology Andreas Ortega MD, MPH [address] [facility] [address] [place] [address] Division of Medical Oncology Start: 08-19-2022 End: 08-19-2022 Patient encounter procedure Imaging [facility] Start: 07-08-2022 End: 07-08-2023 Complete blood count with white cell differential, automated CBC, EDIF, PLATELET Lab Routine Primary malignant neuroendocrine tumor of appendix Expected: 07/08/2022, Expires: 07/08/2023 [facility] Comment on above: Expected: 07/08/2022, Expires: 3 Start: 07-08-2022 End: 07-08-2023 Comprehensive metabolic 2000 panel - Serum or Plasma COMPREHENSIVE METABOLIC PANEL Lab Routine Primary malignant neuroendocrine tumor of appendix Expected: 07/08/2022, Expires: 07/08/2023 [facility] Comment on above: Expected: 07/08/2022, Expires: 3 Start: 07-08-2022 End: 07-08-2023 CT Abdomen and Pelvis WO and W contrast IV CT ABDOMEN/PELVIS WITH AND WITHOUT CONTRAST Imaging Routine Primary malignant neuroendocrine tumor of appendix Expected: 07/08/2022, Expires: 07/08/2023 [facility] Comment on above: Expected: 07/08/2022, Expires: 3 Start: 07-08-2022 End: 07-08-2023 Lactate dehydrogenase [Enzymatic activity/volume] in Serum or Plasma LACTATE DEHYDROGENASE Lab Routine Primary malignant neuroendocrine tumor of appendix Expected: 07/08/2022, Expires: 07/08/2023 [facility] Comment on above: Expected: 07/08/2022, Expires: 3 Start: 07-08-2022 End: 07-08-2023 PT Skull base to mid-thigh NUC PET NEUROENDOCRINE Imaging Routine Primary malignant neuroendocrine tumor of appendix Expected: 07/08/2022, Expires: 07/08/2023 [facility] Comment on above: Expected: 07/08/2022, Expires: 3 Start: 07-08-2022 End: 07-08-2022 Patient encounter procedure 07/08/2022 Office Visit Oncology Andreas Ortega MD, MPH [address] [place] [phone] Division of Medical Oncology Start: 07-06-2022 End: 07-06-2022 Telemedicine consultation with patient 07/06/2022 Telemedicine Surgical Oncology Raina Gomes APRN-CNP [address] [place] [address] [facility] Start: 06-09-2022 End: 06-09-2022 Patient encounter procedure 06/09/2022 Office Visit Surgical Oncology Raina Gomes APRN-CNP [address] [place] [address] Division of Surgical Oncology Start: 04-21-2022 End: 04-21-2022 Evaluation and management of inpatient 04/21/2022 Surgery Multispecialty Archie Hugo MD, PhD [address] [place] [address] COLECTOMY PARTIAL LAPAROSCOPIC CCCT PERIOP Comment on above: COLECTOMY PARTIAL LAPAROSCOPIC Start: 04-21-2022 End: 04-21-2022 Laparoscopy colectomy partial w/anastomosis COLECTOMY PARTIAL LAPAROSCOPIC Primary malignant neuroendocrine tumor of appendix 04/21/2022 7:15 AM EDT [facility] Start: 04-21-2022 Evaluation and management of inpatient 04/21/2022 Hospital Encounter Multispecialty Archie Hugo MD, PhD [address] [place] [address] Primary malignant neuroendocrine tumor of appendix [facility]CT PERIOP Comment on above: Primary malignant neuroendocrine tumor o f appendix Start: 03-19-2022 End: 03-19-2023 Colonoscopy flx dx w/collj spec when pfrmd DIAGNOSTIC COLONOSCOPY GI/Bronch STAT Primary malignant neuroendocrine tumor of appendix Expected: 03/19/2022, Expires: 03/19/2023 [facility] Comment on above: Expected: 03/19/2022, Expires: 3 Start: 03-19-2022 Influenza vaccination INFLUENZA VACCINE (#1) [facility] Start: 03-19-2022 End: 03-19-2023 TYPE AND SCREEN - PREADMISSION TYPE AND SCREEN - PREADMISSION Blood Bank Routine Primary malignant neuroendocrine tumor of appendix Expected: 03/19/2022, Expires: 03/19/2023 [facility] Work Phone: Comment on above: Expected: 03/19/2022, Expires: 3 Start: 07-10-2021 COVID-19 VACCINE (2 - Pfizer risk series) COVID-19 VACCINE (2 - Pfizer risk series) [facility] Start: 07-10-2021 COVID-19 VACCINE (2 - Pfizer series) COVID-19 VACCINE (2 - Pfizer series) [facility] Start: 08-14-2020 Tetanus vaccination TETANUS [facility] Start: 2018 Screening for malignant neoplasm of cervix CERVICAL CANCER SCREENING DISCUSSION [facility] Start: 2016 Third diphtheria, tetanus and acellular pertussis (DTaP) vaccination TDAP (ADULT) [facility] Start: 2016 Zoster vaccine hzv live for subcutaneous use ZOSTER (SHINGLES) VACCINE (1 of 2) [facility] Start: 2015 Tetanus vaccination TETANUS [facility] Start: 2013 Screening for Chlamydia trachomatis CHLAMYDIA SCREEN [facility] Start: 2012 HIV screening HIV SCREENING DISCUSSION [facility] Start: 02-11-2011 Vaccination for human papillomavirus HPV VACCINE ADOL (2 - 2-dose series) [facility] Start: 09-11-2010 Vaccination for human papillomavirus HPV VACCINE ADOL (2 - Risk 3-dose series) [facility] Start: 2008 Vaccination for human papillomavirus HPV VACCINE ADOL (1 - 2-dose series) [facility] Start: 2003 PNEUMOCOCCAL VACCINE SERIES (1 - PCV) PNEUMOCOCCAL VACCINE SERIES (1 - PCV) [facility] Start: 2003 PNEUMOCOCCAL VACCINE SERIES (1 of 2 - PCV) PNEUMOCOCCAL VACCINE SERIES (1 of 2 - PCV) [facility] Start: 1997 GONORRHEA SCREEN GONORRHEA SCREEN [facility] Start: 1997 Hepatitis C antibody, confirmatory test HEPATITIS C VIRUS SCREENING [facility] Start: 1997 Hepatitis C screening HEPATITIS C VIRUS SCREENING [facility] Start: 1997 Screening for Chlamydia trachomatis GONORRHEA SCREEN [facility] CHROMOGRANIN A CHROMOGRANIN A L ab Routine Primary malignant neuroendocrine tumor of appendix 03/11/2023 11:44 AM EDT [facility] Work Phone: End: 03-31-2022 CT Abdomen and Pelvis W contrast IV [facility] Work Phone: Comment on above: 1 Occurrences starting 03/31/2022 until 03/31/2022 End: 08-14-2022 CT Abdomen and Pelvis WO and W contrast IV [facility] Work Phone: Comment on above: 1 Occurrences starting 08/14/2022 until 08/14/2022 End: 11-06-2023 CT Abdomen and Pelvis WO and W contrast IV [facility] Comment on above: 1 Occurrences starting 11/06/2023 until 11/06/2023 End: 02-07-2024 CT Abdomen and Pelvis WO and W contrast IV [facility] Comment on above: 1 Occurrences starting 02/07/2024 until 02/07/2024 Ecg routine ecg w/le ast 12 lds trcg only w/o i&r UT ECG, TRACING ONLY UT - OFFICE PERFORMED Routine Primary malignant neuroendocrine tumor of appendix Ordered: 03/19/2022 [facility] Comment on above: Ordered: 03/19/2022 Echocardiography ECHOCARDIOGRAM Echocardiography Routine Carcinoid syndrome SOB (shortness of breath) Tachycardia Ordered: 10/07/2022 [facility] Comment on above: Ordered: 10/07/2022 Laparoscopy colectom y partial w/anastomosis COLECTOMY PARTIAL LAPAROSCOPIC Primary malignant neuroendocrine tumor of appendix [facility] End: 03-09-2023 Magnetic resonance imaging of abdomen and pelvis with contrast MRI ABDOMEN/PELVIS WITHOUT AND WITH CONTRAST Imaging Routine Primary malignant neuroendocrine tumor of appendix 1 Occurrences starting 03/09/2023 until 03/09/2023 [facility] Comment on above: 1 Occurrences starting 03/09/2023 until 03/09/2023 Removal of kike UT STAPLE REM OVAL UT - OFFICE PERFORMED Routine Primary malignant neuroendocrine tumor of appendix Ordered: 06/09/2022 [facility] Comment on above: Ordered: 06/09/2022 SURG PATH REQUEST [facility] Comment on above: Release Upon Ordering for 1 Occurrences starting 05/22/2022, 1 completed TRANSIENT ELASTOGRAPHY TRANSIENT ELASTOGRAPHY GI/Bronch Routine Elevated liver enzymes Ordered: 11/26/2023 [facility] Comment on above: Ordered: 11/26/2023 Immunizations Immunization Date Immunization Notes Care Provider Fa alejo 06-19-2021 SARS-CoV-2 (COVID-19 ) mRNA BNT-162b2 vax Cortez Sar[facility] Comment on above: Result Comment: 2023: TPVALL 04-28-2021 influenza virus vacc ine, unspecified formulation 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 Work Phone: [facility] Comment on above: Result Comment: 2023: NULL 08-28-2020 SARS-CoV-2 (COVID-19 ) mRNA-1273 vaccine Cortez Sar[facility] 07-31-2020 SARS-CoV-2 (COVID-19 ) mRNA-1273 vaccine Cortez Sarmini [facility] 08-14-2010 HPV, unspecified formulation Cortez Sarmini [facility] 08-14-2010 meningococcal ACWY vaccine, unspecified formulation Cortez Sarmini [facility] 08-14-2010 tetanus toxoid, redu shaheed diphtheria toxoid, and acellular pertussis vaccine, adsorbed Cortez Sarmini [facility] 04-03-2002 measles, mumps and rubella virus vaccine Cortez Sarmini [facility] 09-20-2000 DTaP, unspecified formulation Cortez Sarmini [facility] 09-20-2000 hepatitis B vaccine, pediatric or pediatric/adolescent dosage Cortez Sarmini [facility] 09-20-2000 Hib, unspecified formulation Cortez Sar[facility] 09-20-2000 measles, mumps and rubella virus vaccine Cortez Sarmini [facility] 09-20-2000 poliovirus vaccine, unspecified formulation Cortez Sarmini [facility] 1997 DTaP, unspecified formulation Cortez Sar[facility] 1997 Hib, unspecified formulation [facility] Sar[facility] 1997 poliovirus vaccine, unspecified formulation [facility] Sar[facility] 1997 DTaP, unspecified formulation Cortez Sar[facility] 1997 hepatitis B vaccine, pediatric or pediatric/adolescent dosage Cortez Sar[facility] 1997 Hib, unspecified formulation [facility] Sar[facility] 1997 poliovirus vaccine, unspecified formulation [facility] Sar[facility] 1997 hepatitis B vaccine, pediatric or pediatric/adolescent dosage [facility] Sar[facility] Payers Date Payer Category Payer Self-pay [id number] 2022 Unknown [id number] 2021 Managed Care HMO (unspecified) PARAMOUNT HMO PARAMOUNT HMO [id number] 2021-Present [address] [place] [address] O [id number] 2021 Unknown PARAMOUNT NELIDA UNT PREFERRED PPO [id number] 2021-Present [phone] [address] [place] [address] PPO [id number] .[id number] 1997 Unknown [id number] 2.16.840.1.551343.3.579.2 .593 1997 Unknown [id number] 2.16.840.1.109209.3.579.2 .593 1997 Unknown [id number] 2.16.840.1.028360.3.579.2 .593 1997 Unknown [id number] 2.16.840.1.612304.3.579.2 .593 1997 Unknown [id number] 2.16.840.1.455314.3.579.2 .593 1997 Unknown [id number] 2.16.840.1.431867.3.579.2 .593 1997 Unknown [id number] 2.16.840.1.727482.3.579.2 .593 1997 Unknown [id number] 2.16.840.1.968696.3.579.2 .593 1997 Unknown [id number] 2.16.840.1.826270.3.579.2 .593 1997 Unknown [id number] 2.16.840.1.774057.3.579.2 .593 1997 Unknown [id number] 2.16.840.1.003028.3.579.2 .593 1997 Unknown [id number] 2.16.840.1.299798.3.579.2 .593 1997 Unknown [id number] 2.16.840.1.730668.3.579.2 .593 1997 Unknown [id number] 2.16.840.1.529671.3.579.2 .593 1997 Unknown [id number] 2.16.840.1.845868.3.579.2 .593 1997 Unknown [id number] 2.16.840.1.647158.3.579.2 .593 1997 Unknown [id number] 2.16.840.1.294268.3.579.2 .593 1997 Unknown [id number] 2.16.840.1.473224.3.579.2 .1259 1997 Unknown [id number] 2.16.840.1.868593.3.579.2 .1259 1997 Unknown [id number] 2.16.840.1.755868.3.579.2 .1259 1997 Unknown [id number] 2.16.840.1.961477.3.579.2 .1259 1997 Unknown [id number] 2.16.840.1.822480.3.579.2 .1259 1997 Unknown [id number] 2.16.840.1.386401.3.579.2 .1259 1997 Unknown [id number] 2.16.840.1.387122.3.579.2 .1259 1997 Unknown [id number] 2.16.840.1.734943.3.579.2 .1259 1997 Unknown [id number] 2.16.840.1.966837.3.579.2 .1259 1997 Unknown [id number] 2.16.840.1.209662.3.579.2 .727 1997 Unknown [id number] 2.16.840.1.394906.3.579.2 .1286 1997 Unknown [id number] 2.16.840.1.699426.3.579.2 .1286 1997 Unknown [id number] 2.16.840.1.352006.3.579.2 .1286 1997 Unknown [id number] 2.16.840.1.031352.3.579.2 .594 1997 Unknown [id number] 2.16840.1.215563.3.579.2 .594 1997 Unknown [id number] 2.16840.1.977560.3.579.2 .594 1997 Unknown [id number] 2.840.1.259819.3.579.2 .594 1997 Unknown [id number] 2.840.1.316637.3.579.2 .594 1997 Unknown [id number] 2.840.1.754059.3.579.2 .594 1997 Unknown [id number] 2.840.1.077632.3.579.2 .594 1997 Unknown [id number] 2.840.1.497142.3.579.2 .594 1997 Unknown [id number] 2.840.1.598499.3.579.2 .594 1997 Unknown [id number] 2.840.1.853216.3.579.2 .594 1997 Unknown [id number] 2.840.1.844995.3.579.2 .594 1997 Unknown [id number] 2.16840.1.281736.3.579.2 .594 1997 Unknown [id number] 2.16840.1.847418.3.579.2 .594 1959 Unknown [id number] Unknown [id number] 2.840.1.061937.19 Unknown [id number] 2.16840.1.358745.3.579.2 .531 Unknown [id number] 2.16.840.1.182545.3.579.2 .531 Social History Date Type Detail Facility Unknown if ever smoked [facility] Start: 03-11-2023 End: 11-08-2023 Sex Assigned At [facility] Tobacco smoking stat [facility] Tobacco smoking consumption unknown [facility] Work Phone: Start: 1997 Sex Assigned At Not on file [facility] Start: 03-19-2022 End: 04-14-2022 Tobacco smoking status NJIS Never smoked tobacco [facility] Start: 03-31-2022 End: 02-07-2024 Alcohol intake Ex-drinker (finding) [facility] Start: 03-19-2022 History SDOH Alcohol Comment last alchohol 2019; mixed drink rarely [facility] Start: 04-14-2022 Tobacco use and exposure Smokeless tobacco non-user [facility] Start: 05-12-2022 End: 08-19-2022 Exposure to SARS-CoV-2 (event) Not sure [facility] Start: 06-28-2022 End: 07-08-2022 Exposure to SARS-CoV-2 (event) Unable to assess [facility] Start: 03-11-2023 End: 11-08-2023 History of Social function [facility] Adolescent depressio n screening assessment 1 [facility] Start: 01-12-2023 [facility] Start: 1995 Sex Assigned At Female [facility] Start: 01-25-2023 Gender identity Identifies as female gender (finding) [facility] Start: 01-25-2023 Sexual orientation Heterosexual (finding) [facility] Goals Date Patient Goal Desired Activity /State Personal health goal Functional Status Date Assessment Result Facility 02-07-2024 Functional Status [facility] 12-22-2021 to 04-21-2024 Telephone Encounter - Piedad Best RN - 04/21/2024 1:33 PM EDTTelephone Encounter - Piedad Best RN - 04/21/2024 1:33 PM EDTTelephone Encounter - Piedad Best RN - 04/21/2024 1:21 PM EDT Note Date & Type Note Facility 04-21-2024 Telephone encounter Note Patient returned phone call to RN. Patient informed recommend canceling ct scan on 05/23/[address] scan of abdomen/pelvis which was unremarkable on 04/13/24. Inquired if abdominal pain was any better. Patient stated the abdominal discomfort is still the same. Patient will be getting a coloscopy and endoscopy locally on 05/03/24. Patient will contact clinic when test completed to obtain reports. [facility] 04-21-2024 Miscellaneous Notes Patient returned phone call to RN. Patient informed recommend canceling ct scan on 05/23/[address] scan of abdomen/pelvis which was unremarkable on 04/13/24. Inquired if abdominal pain was any better. Patient stated the abdominal discomfort is still the same. Patient will be getting a coloscopy and endoscopy locally on 05/03/24. Patient will contact clinic when test completed to obtain reports. Attempted to contact patient and message left. 04/12/2024 11:43 AM Patient sent a my [...] was rescheduled to 04/25/24. She c/o abdominal kpgz-[id number]-bgx RUQ, nausea, no vomiting or fevers, occasional chills, and more frequent diarrhea outside of her normal daily diarrhea. She is inquiring if would order a CT of her abdomen. She is requesting a call back. documented in this encounter [facility] 04-21-2024 Telephone encounter Note Attempted to contact patient and message left. [facility] 04-12-2024 Telephone encounter Note 04/12/2024 11:43 AM Patient sent a my chart message asking this per Dr Ortega: Did she try cholestyramine for the diarrhea? RN also let her know via my chart about her scan. --Any Medrano RN [facility] 04-12-2024 Miscellaneous Notes 04/12/2024 11:43 AM [...] was rescheduled to 04/25/24. She c/o abdominal dslw-jdpix-wlo RUQ, nausea, no vomiting or fevers, occasional chills, and more frequent diarrhea outside of her normal daily diarrhea. She is inquiring if would order a CT of her abdomen. She is requesting a call back. documented in this encounter [facility] 04-11-2024 Telephone encounter Note Call placed [...] day Rating: when it comes on it's 6-7/ Aggravating: eating Alleviating: only thing is oxycodone Nausea is really bad and it's painful to have bowel movements Any blood in stool? Yes dark blood in stools just a couple instances T [facility] 04-11-2024 Telephone encounter Note Patient phoned in stating that she was scheduled for her PET scan tomorrow however she had her Octreotide injection 8 days ago so it was rescheduled to 04/25/24. She c/o abdominal hxbj-xpfpk-anc RUQ, nausea, no vomiting or fevers, occasional chills, and more frequent diarrhea outside of her normal daily diarrhea. She is inquiring if would order a CT of her abdomen. She is requesting a call back. [facility] 03-17-2024 Note Addended by: Anna MORALEZ on: 03/17/2024 04:17 PM Modules accepted: Orders [facility] 03-17-2024 Note Addended by: Anna MORALEZ on: 03/17/2024 04:17 PM Modules accepted: Orders [facility] 03-17-2024 Telephone encounter Note Refilled [facility] 03-17-2024 Miscellaneous Notes Addended by: YUDELKA MORALEZ on: 03/17/2024 04:17 PM Modules accepted: Orders Refilled Call placed to patient - she was rescheduled for April 04. They asked to ask us if they have to have an order sent to their clinic? [facility] center in [place]. She didn't ever grape picker the prescription for her short acting [...] she will need to start prep soon. [phone] documented in this encounter [facility] 03-17-2024 Telephone encounter Note Call placed to patient - she was rescheduled for April 04. They asked to ask us if they have to have an order sent to their clinic? [facility] center in [place]. She didn't ever grape picker the prescription for her short acting octreotide. She'd be happy to pick that up to take the short acting shots prior to procedure. [facility] 03-13-2024 Telephone encounter Note Called to speak to patient regarding her colonoscopy but no answer at this time. LVM to have patient call us back at their earliest convenience [facility] 03-13-2024 Telephone encounter Note Patient calling in stating she has a colonoscopy scheduled tomorrow. The surgery center where she is getting it done does not have the Octreotide she should take. Wanting to know if she should reschedule. Requesting a response as soon as possible as she will need to start prep soon. [phone] [facility] 02-07-2024 Evaluation + Plan note Future Scheduled TestsCeliac Disease Comprehensive 02/07/24Celiac Disease Comprehensive 02/07/24 [facility] 01-06-2024 History of Present [...] RLQ pain. She underwent an appendectomy at [facility] 02/03/22. Pathology was consistent with both [...] Location: [facility] MAIN OR DEBULKING INTRA-ABDOMINAL/PELVIC/RETROPERIT CABELLO W/ OMENECTOMY & PELVIC PARA-AORTIC LYMPHADENECTOMY N/A 05/22/2022 Laterality: N/A; Surgeon: Archie Hugo MD, PhD; Location: [facility] MAIN OR COLECTOMY PARTIAL LAPAROSCOPIC N/A 04/21/2022 Laterality: N/A; Surgeon: Archie Hugo MD, PhD; [facility] COLON[facility] DIAGNOSTIC 04/08/2022 APPENDECTOMY LAPAROSCOPIC 02/03/2022 [place], [place] Medications: Current Outpatient Medications Medication Sig [...] (Patient not taking: Reported on 01/06/2024) Pancrelipase, Fbg-Zfkh-Zmgv, (Creon) [id number] units Cap DR Particles Please take one [...] alchohol 2020; mixed drink rarely Drug use: Never Sexual activity: Yes Partners: Male Other Topics Concern Occupational Exposure No Hobby Hazards No Social Determinants of Health Financial Resource Strain: Medium Risk (02/18/2022) Received from [facility] Overall Financial Resource Strain (CARDIA) Difficulty of Paying Living Expenses: Somewhat hard Food Insecurity: No Food Insecurity (07/07/2023) Received from [employer] Hunger Screening Within the past 12 months we worried whether our food would run out before we got money to buy more.: Never True Within the past 12 months the food we bought just didn't last and we didn't have money to get more.: Never True Transportation Needs: No Transportation Needs (02/18/2022) Received from [facility] PRAPARE - Transportation Lack of Transportation (Medical): No Lack of Transportation (Non-Medical): No Physical Activity: Insufficiently Active (02/18/2022) Received from [facility] Exercise Vital Sign Days of Exercise per Week: 3 days Minutes of Exercise per Session: 40 min Stress: Stress Concern Present (02/18/2022) Received from [employer] [facility] [employer]ational [facility] - Occupational Stress Questionnaire Feeling of Stress : Very much Social Connections: Unknown (02/18/2022) Received from [employer] Social Connection and Isolation Panel [NHANES] Frequency of Communication with Friends and Family: Twice a week Frequency of Social Gatherings with Friends and Family: Patient declined Attends [employer] Services: Never Active Member of Clubs or [...] Component Value Date CHROMOGRANA 30 11/06/2023 Radiology: 4/20/24 CT Abdomen/Pelvis: 1. Status post right hemicolectomy [...] y.o. female who underwent an appendectomy at [facility] 02/03/22. Pathology was consistent with both [...] She has followed with Dr. Ortega at [facility] for her NET. She began octreotide [...] to her satisfaction. Carol Summers MD, PhD Sewing Machine Operator [employer] Division of Medical Oncology Division of Gynecologic Oncology documented in this encounter [facility] 01-06-2024 Instructions Latesha Steen RN - 01/06/2024 3:00 PM EDT You will return to clinic: 1 year To see provider: Dr Summers documented in this encounter [facility] 11-26-2023 History of Present illness Narrative This nurse verified pts name and . Subjective History of Present Illness: Chief Complaint Patient presents with New Patient Zainab Swift is a 28 y.o. female who presents to the [facility] Gastroenterology, Hepatology, and Nutrition Clinic today regarding [...] Surgeon: Archie Hugo MD, PhD; Location[facility] COLECTOMY PARTIAL OPEN Right 05/22/2022 Laterality: Right; Surgeon: Archie Hugo MD, PhD; Location[facility] OR DEBULKING INTRA-ABDOMINAL/PELVIC/RETROPERIT CABELLO W/ OMENECTOMY & PELVIC PARA-AORTIC LYMPHADENECTOMY N/A 05/22/2022 Laterality: N/A; Surgeon: Archie Hugo MD, PhD; Location: [facility] MAIN OR COLECTOMY PARTIAL LAPAROSCOPIC N/A 04/21/2022 Laterality: N/A; Surgeon: Archie Hugo MD, PhD; Location[facility] COLONOSCOPY DIAGNOSTIC 04/08/2022 APPENDECTOMY LAPAROSCOPIC 02/03/2022 [place], [place] Current Outpatient Medications Medication Sig acetaminophen [...] as needed for Other (carcinoid syndrome). Pancrelipase, Ajg-Zgio-Brpk, (Creon) [id number] units Cap DR Particles Please take one [...] enzymes - ALPHA 1 ANTITRYPSIN; Future - [id number] PHENOTYPE; Future - HUNTER SCREEN IFA; Future [...] - TRANSIENT ELASTOGRAPHY documented in this encounter [facility] 11-26-2023 Instructions MAMTA Dee - 11/26/2023 9:30 AM EDT Labs today to evaluate for causes of liver enzyme elevation Fibroscan ordered to evaluate your liver for fibrosis, steatosis Follow up in 3 months - video [facility] History of Present illness Narrative Reason [...] nursing note reviewed. Exam conducted with a supervisor ornamental ironworking present. Vitals: Estimated body mass index is [...] Ron Ruano DO documented in this encounter [facility] 12-10-2022 History of Present illness Narrative Chief Complaint: Chief Complaint Patient presents with Follow-up HPI: Zainab Swift is a 27 y.o. female who presents to [facility]cology [facility] for post-operative [...] (Patient not taking: Reported on 07/06/2022) Pancrelipase, Xxj-Hdol-Kkxs, (Creon) [id number] units Cap DR Particles Take two caps [...] concerns, or change in clinical status. MAMTA iVllagran Chief Complaint: Chief Complaint Patient presents with Follow-up HPI: Zainab Swift is a 27 y.o. female who presents to [facility] for post-operative [...] (Patient not taking: Reported on 07/06/2022) Pancrelipase, Xym-Ackf-Plky, (Creon) [id number] units Cap DR Particles Take two caps [...] interviewed and examined this patient with the CLINICAL REHABILITATION SPECIALIST/fellow/resident. I reviewed the history and exam [...] months with repeat imaging. Archie Hugo MD/PhD manager library Division of Surgical Oncology Department of Surgery documented in this encounter [facility] 12-10-2022 Instructions MAMTA Villagran - 12/10/2022 12:30 PM EDT documented in this encounter [facility] 10-22-2022 History of Present illness [...] ulcers, vision changes. 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 do everything on [...] Surgeon: Archie Hugo MD, PhD; Location[facility] COLECTOMY PARTIAL OPEN Right 05/22/2022 Laterality: Right; Surgeon: Archie Hugo MD, PhD; Location: [facility] OR DEBULKING INTRA-ABDOMINAL/PELVIC/RETROPERIT CABELLO W/ OMENECTOMY & PELVIC PARA-AORTIC LYMPHADENECTOMY N/A 05/22/2022 Laterality: N/A; Surgeon: Archie Hugo MD, PhD; Location: [facility] OR COLECTOMY PARTIAL LAPAROSCOPIC N/A 04/21/2022 Laterality: N/A; Surgeon: Archie Hugo MD, PhD; Location: [facility] COLONOSCOPY DIAGNOSTIC 04/08/2022 APPENDECTOMY LAPAROSCOPIC 02/03/2022 [place], [place] Family History Problem Relation Age of [...] Reported on 07/06/2022) 30 tablet 0 Pancrelipase, Cjm-Ujwk-Dicu, (Creon) [id number] units Cap DR Particles Take two caps [...] Rebekah Suero MD documented in this encounter [facility] 10-22-2022 Instructions Rebekah Suero MD - [...] Rub Alcohol hand rub, also called hand cmo & president, can be used instead of soap and [...] they are dry, atleast 20-30 seconds. [facility]. This handout is for informational purposes only. Talk with your doctor or healthcare team if you have any questions about your care. For more health information call the Library for Health Information at [phone] or email: [email or web address]. documented in this encounter [facility] 10-22-2022 History of Present illness Narrative Intravenous access obtained and remained for next appointment in cardioology at [facility]. 22 gauge IV in left ac. Dressing intact and/or coban used to secure access. Patient instructed to report directly to next appointment. documented in this encounter [facility] 10-07-2022 Note Acute Coronary Syndr ome (ACS): Initial Evaluation and Management: [email or web address] [facility] 10-07-2022 History of Present illness [...] to do housework. 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 Eating ok. Weight [...] Reported on 07/06/2022) 30 tablet 0 Pancrelipase, Nrn-Qqeb-Nqxw, (Creon) [id number] units Cap DR Particles Take two caps [...] Surgeon: Archie Hugo MD, PhD; [facility] COLECT[facility]Y PARTIAL OPEN Right 05/22/2022 Laterality: Right; Surgeon: Archie Hugo MD, PhD; Location: [facility] MAIN OR DEBULKING INTRA-ABDOMINAL/PELVIC/RETROPERIT CABELLO W/ OMENECTOMY & PELVIC PARA-AORTIC LYMPHADENECTOMY N/A 05/22/2022 Laterality: N/A; Surgeon: Archie Hugo MD, PhD; Location: [facility] MAIN OR COLECTOMY PARTIAL LAPAROSCOPIC N/A 04/21/2022 Laterality: N/A; Surgeon: Archie Hugo MD, PhD; [facility] COLONOSCOPY DIAGNOSTIC 04/08/2022 APPENDECTOMY LAPAROSCOPIC 02/03/2022 [place], [place] Past medical, surgical, family, and social [...] symptoms. MAMTA [facility] End[facility] Tumor Program [facility] Ghulam Narinder [facility] and Mohamud Hernandez Research Spelter To discuss with Dr. Ortega documented in this encounter [facility] 10-07-2022 Instructions Johana Lutz RN [...] script to Zainab Thank you for choosing [facility] for your cancer care. FMLA/Disability forms: Please allow up to 2 weeks for the forms to be returned to you +++ should you need any FMLA, Short term disability or termite helper disability forms filled out please fax them to (f) [phone] ++++ Refill requests: Please allow 24-48 hours for a response My chart message response: PLEASE DO NOT SEND IN URGENT/EMERGENT MESSAGES VIA MY CHART. Please allow up to 24-48 hours for a response via my chart. Should you have questions or concerns, please call [phone] documented in this encounter [facility] 07-08-2022 History of Present illness [...] and requires nap. 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 Better appetite with [...] Location: [facility] OR DEBULKING INTRA-ABDOMINAL/PELVIC/RETROPERIT CABELLO W/ OMENECTOMY & PELVIC PARA-AORTIC LYMPHADENECTOMY N/A 05/22/2022 Laterality: N/A; Surgeon: Archie Hugo MD, PhD; Location: [facility] MA[facility] OR COLECTOMY PARTIAL LAPAROSCOPIC N/A 04/21/2022 Laterality: N/A; Surgeon: Archie Hugo MD, PhD; Location: [facility] OR COLONOSCOPY DIAGNOSTIC 04/08/2022 APPENDECTOMY LAPAROSCOPIC 02/03/2022 [place], [place] Social History Socioeconomic History Marital status: [...] Dr. Ortega for impression and recommendations. MAMTA [place] Neuroendocrine Tumor Program [facility] and Mohamud Aguirre [facility] Addendum by Dr. Ortega: IAttending Addendum:I [...] She was seen by [facility] Archie Hugo [facility] in [facility] chest revealed [...] and fatigue. ECOG PS 1. 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 1. Metastatic, well differentiated, grade 1, appendicular [...] placebo groups was 14.3 and 6 months (p=[phone]), respectively. The CLARINET study, [which enrolled patients [...] A/P 2. LAMN: Discussed with Dr. Carol Summers/[facility] who recommended active surveillance. No role for adjuvant systemic therapy. Patient will continue to follow with Dr. Archie Hugo. 3. Hx of NET in family: referral to genetics 4. Transaminitis: discontinue hepatotoxins/acetaminophen. Repeat LFTs at [facility]. documented in this encounter [facility] 07-08-2022 Instructions Yina Amaya RN [...] Tylenol Cancel pathology-done documented in this encounter [facility] 06-09-2022 History of Present illness Narrative Chief Complaint: Chief Complaint Patient presents with Follow-up HPI: Zainab Swift is a 27 y.o. female who presents to [facility] for post-operative [...] status. MAMTA Carrion documented in this encounter [facility] 06-09-2022 Instructions Veronique Calvin RN - 06/09/2022 1:15 PM EST Tele health visit with Raina Gomes CNP in 4 weeks on a Wednesday. Referral placed to neuroendocrine oncology. Return in [address] Hugo with scans same day. documented in this encounter [facility] 05-29-2022 Note Formatting of this [...] via wheelchair with all belongings at 1147. [facility] 05-29-2022 Miscellaneous Notes Patient and spouse given all discharge instructions at this time. Patient verbalizes understanding of all discharge instructions and picked up all prescriptions from [facility]. Patient states she properly demonstrated [...] injectables) (Follow up scheduled with Dr. Hugo) CM/JAYLYN AVS Portion Completed Yes Plan Plan [...] and assistance is needed, please page the cloud solutions architect PCRM at [phone]. Patient did well overnight. Patient pain mostly being controlled with epidural, but scheduled medications controlling her mild to moderate breakthrough pain. Patient with steady gait and only needig needing stand-by assistance. Patient now with bowel function and feeling hungry. Patient hopefully to have diet started today. Patient was able to be up in walking with stand-by assistance from multiple times yesterday. 2123: [facility] paged: Rm [phone], Jamison: FYI pt states that she can't tolerate taking the olanzapine disintegrating tablet because of the NG. Thanks [id number] Q1 safety rounds completed. Patient pain controlled [...] Providers Updated In IHIS Yes Contact Information Wire Straightening Machine Operator/SW Added to Care Team Yes This Heavy Mobile Equipment Operator is Primary Wire Straightening Machine Operator/SW Yes (Antonio Jiang RN [facility] [phone]) Wire Straightening Machine Operator Name Pinky Barcenas RN [facility] Wire Straightening Machine Operator's Social Work Contact Name Bailey Magallanes MSW, [facility] Architectural Modeler's Living Environment Lives With spouse Living Arrangements [...] Education And Care For Discharge? Phill Swift [phone] Can Support Person Meet The Care Needs Of The Patient? 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 Employment/Financial Concerns no Source Of Income salary/wages Financial Concerns none Insurance Medical Insurance Verified Yes Prescription Coverage Yes Pharmacy updated in [facility] Yes Initial Discharge Planning Home Care Services (CHAIRMAN & CEO) No Home Therapies (CHAIRMAN & CEO) None DME (CHAIRMAN & CEO) None Medical Supplies (CHAIRMAN & CEO) None Patient Goal for Discharge Return home with assistance from family and friends Anticipated discharge disposition Home Anticipated Services at Discharge Outpatient follow up Anticipated Changes Related to Illness none Current Discharge Risk high risk diagnoses (i.e., CHF, Stroke, DM, chronic pain, abdominal pain, nausea and vomiting) Transportation Available car Home Care Services (CHAIRMAN & CEO) Additional Home Care Services (CHAIRMAN & CEO) no Assessment/Concerns to be Addressed Concerns To Be Addressed denies needs/concerns at this time Zainab Swift is a 27 y.o. yr old female, who is now POD#0 s/p HYPERTHERMIA BY INTRACAVITARY PROBE (HIPEC) (N/A) COLECTOMY PARTIAL OPEN (Right), DEBULKING INTRA-ABDOMINAL/PELVIC/RETROPERIT CABELLO W/ OMENECTOMY & PELVIC PARA-AORTIC LYMPHADENECTOMY (N/A). [...] All questions answered. 1514: Patient discharged from [facility] PACU per protocol. Patient transported via gurney with side rails up x2 with HOB>30 degrees to room 1204 [facility] by Natalia EMERY and Dang PORTFOLIO SPECIALIST. Family called to patient's bedside. 1310: Patient arrives in [facility] PACU from OR via gurney with side rails up x2 with HOB >30 degrees, accompanied by Anesthesiologist: Carol Gupta DO; Chayo Benson MD Devulcanizer Head: VIJAYA Gamboa; VIJAYA Lopez Carrier Associate Assisting: Richard Bradshaw MD Forestry Extension Specialist: Wali Art. Patient placed on monitors, VSS. Report received from anesthesia. Patient assessed, see assessment. 1427: PACU labs and abdominal xray for NG placement cleared by Miguel Betancourt at this time. 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 JR drain placed in pelvis. 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 19 Fr drain in the pelvis coming out LLQ SURGEON Surgeon(s) and Role: * Archie Hugo MD, PhD - Primary ANESTHESIOLOGIST Anesthesiologist: Carol Gupta DO; Chayo Benson MD Devulcanizer Head: VIJAYA Gamboa; VIJAYA Lopez Carrier Associate Assisting: Richard Bradshaw MD Forestry Extension Specialist: Wali Art SURGICAL STAFF Supplier Relationship Director: Piedad Maki RN; Rima Medel RN Relief Supplier Relationship Director: Suri Stockton RN Relief Scrub: Ghanshyam Townsend [...] SURG PATH REQUEST Archie Hugo MD, PhD 05/22/202202 5 : TERMINAL ILEUM [...] 1:04 PM SURGEONS: Archie Hugo MD, PhD STATION REPAIRER SURGEON: Rodolfo Arnold MD PROCEDURE: - Exploratory [...] second timeout per standard procedure at the [facility]. We made a midline incision using a [...] sarmiento stapler device. Next, we began the ffkwlv-lc-mypmaew dissection to mobilize the colonic mesentery. We [...] filed. We then proceeded with creating a [id number]-pj-ikxz functional end-to-end anastomosis between the distal ileum [...] Left lateral abdomen laparoscopic puncture Placement Date/Time: 04/21/22 07 Present On Admission : no Side: Left Orientation: lateral Location: abdomen Incision Type: laparoscopic puncture Incision WDL WDL Incision (Adult, Pediatric) 04/21/22 0749 lower;medial abdomen laparoscopic puncture Placement Date/Time: 04/21/22748 Present On Admission : no Orientation: lower;medial Location: abdomen Incision Type: laparoscopic puncture Incision WDL WDL Plan WOCT Visit Frequency Sat Last Date Seen 05/22/22 documented in this encounter [facility] 05-29-2022 Hospital course Narrative Discharge [...] of Surgical Oncology Arrive at: Arrive to [facility] First Floor Registration [phone] documented in this encounter [facility] 05-28-2022 Note Formatting of this [...] and assistance is needed, please page the cloud solutions architect PCRM at [phone]. [facility] 05-28-2022 History of Present illness [...] the care of Zainab Swift. Please page [phone] or call [phone] with any questions or concerns. Elroy Powell MD Acute Pain Service Senior Resident @ [phone] Subjective: Passing gas and having regular BMs. [...] distended, appropriately tender. Midline incision sealed with kiek c/d/i and without edema, erythema, exudate, or [...] Plan was discussed with Dr. Oanh Betancourt, SPENCER-BENCH MOVER B surgery G3 service [id number] Anesthesia Acute Pain Progress Note Zainab Swift is a 27 y.o. female who is 5 Days Post-Op from Procedure(s) (LRB): HYPERTHERMIA BY INTRACAVITARY PROBE (HIPEC) (N/A) COLECTOMY PARTIAL OPEN (Right) DEBULKING INTRA-ABDOMINAL/PELVIC/RETROPERIT CABELLO W/ OMENECTOMY & PELVIC PARA-AORTIC LYMPHADENECTOMY (N/A). [...] acute pain service at [phone] or call [phone] with any questions or concerns. Yann Burr [...] with MAMTA Wisdom B surgery G3 service [id number] Psychosocial Assessment Per chart review, patient is a is a 27 y.o. 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 PMH: anxiety, borderline personality disorder, depression, GERD SW met with patient to introduce self, explain health social work professor role during inpatient stay, and answer patient questions. Patient was alert and oriented x4 and agreeable to SW visit. Information Source Information Source: patient , review of medical record, spouse Information Source Name: Arlette Swift Information Source Number: see demographics Contact Information Wire Straightening Machine Operator Name: Pinky Smith [facility] Wire Straightening Machine Operator's Social Work Contact Name: Bailey WILLAMS [employer] Architectural Modeler's Living Environment Lives With: spouse Living Arrangements: house (one story house wiith 3 Steps to enter) Provides Primary Care For: no one Primary Care Provided By: spouse/significant other, self Support System: Immediate family Able to Return to Prior Arrangements: yes Employment/Financial Employed?: Yes 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 Health Insurance / Rx: [facility]/PHARMACY #[id number] [place] [address] [address] [facility] Anticipated Discharge Plan: Pt report she plans to return home with care and transportation provided by her . Medical Team Considerations: None SW Interventions/Recommendations: Service SW name and contact information placed on white board in patient's room to contact as needed. SW will continue to remain available to provide assistance and support as needed during inpatient stay. Bailey Magallanes, IMER, [employer] SONC and HPB Architectural Modeler Pager: [phone] For Evening (4:30pm-8am) and Weekend SW needs please call [phone] or page [phone] Anesthesia Acute Pain Progress Note Zainab Swift is a 27 y.o. female who is 4 Days Post-Op from Procedure(s) (LRB): HYPERTHERMIA BY INTRACAVITARY PROBE (HIPEC) (N/A) COLECTOMY PARTIAL OPEN (Right) DEBULKING INTRA-ABDOMINAL/PELVIC/RETROPERIT CABELLO W/ OMENECTOMY & PELVIC PARA-AORTIC LYMPHADENECTOMY (N/A). [...] acute pain service at [phone] or call [phone] with any questions or concerns. Yann Burr [...] Oanh Colón APRN-TASH B surgery G3 service [id number] Anesthesia Acute Pain Progress Note Zainab Swift is a 27 y.o. female who is 3 Days Post-Op from Procedure(s) (LRB): HYPERTHERMIA BY INTRACAVITARY PROBE (HIPEC) (N/A) COLECTOMY PARTIAL OPEN (Right) DEBULKING INTRA-ABDOMINAL/PELVIC/RETROPERIT CABELLO W/ OMENECTOMY & PELVIC PARA-AORTIC LYMPHADENECTOMY (N/A). [...] acute pain service at [phone] or call [phone] with any questions or concerns. Yann Burr [...] interviewed and examined this patient with the CLINICAL REHABILITATION SPECIALIST/fellow/resident. I reviewed the history and exam detailed in the note and have edited it as necessary. I agree with the medical decision making unless otherwise noted below. The patient is doing well. Her pain is well controlled. She is mildly distended on exam. We will continue NPO with NGT until return of bowel function. Archie Hugo MD/PhD manager library Division of Surgical Oncology Department of Surgery [...] Plan was discussed with Dr. Oanh Colón, DOOR LINER HELPER-BENCH MOVER B surgery G3 service [id number] HPB Surgery Note Subjective: Patient doing well [...] (N/A) COLECTOMY PARTIAL OPEN (Right) DEBULKING INTRA-ABDOMINAL/PELVIC/RETROPERIT CABELLO W/ OMENECTOMY & PELVIC PARA-AORTIC LYMPHADENECTOMY (N/A). [...] acute pain service at [phone] or call [phone] with any questions or concerns. Yann Burr MD PGY-1 Anesthesiology Acute Pain Service Attending Addendum: I personally examined and evaluated the patient. I reviewed the case and medical record with the resident. Based on the history and exam, I agree with the medical decision making. Lydia Lasister M.D. HP[facility] Surgery Note Subjective: Patient doing [...] (N/A) COLECTOMY PARTIAL OPEN (Right) DEBULKING INTRA-ABDOMINAL/PELVIC/RETROPERIT CABELLO W/ OMENECTOMY & PELVIC PARA-AORTIC LYMPHADENECTOMY (N/A). [...] acute pain service at [phone] or call [phone] with any questions or concerns. Yann Burr [...] (N/A) COLECTOMY PARTIAL OPEN (Right) DEBULKING INTRA-ABDOMINAL/PELVIC/RETROPERIT CABELLO W/ OMENECTOMY & PELVIC PARA-AORTIC LYMPHADENECTOMY (N/A). [...] (N/A) COLECTOMY PARTIAL OPEN (Right) DEBULKING INTRA-ABDOMINAL/PELVIC/RETROPERIT CABELLO W/ OMENECTOMY & PELVIC PARA-AORTIC LYMPHADENECTOMY (N/A). [...] (N/A) COLECTOMY PARTIAL OPEN (Right) DEBULKING INTRA-ABDOMINAL/PELVIC/RETROPERIT CABELLO W/ OMENECTOMY & PELVIC PARA-AORTIC LYMPHADENECTOMY (N/A). She has an epidural in place for management of her acute post-operative pain. Pain assessment: Pain: 09/25 well-controlled PCEA helps: yes Side effects: none [...] acute pain service at [phone] or call [phone] with any questions or concerns. Richard Bradshaw MD family medicine resident [facility] documented in this encounter [facility] 05-27-2022 Note Formatting of this [...] stand-by assistance from multiple times yesterday. [facility] 05-26-2022 Consult note Formatting of th [...] 1: Location: forearm, anterior, right Device/Lot Number: [id number] catheter system Gauge/Length: 1 3/4 in length;20 gauge Unsuccessful Insertion Attempts: 1 Unsuccessful Attempt Location/Site: Pain Prevention/Patient Tolerance: distraction;tolerated well;appears comfortable Removal: Additional Comments: placed by Carla Mccurdy RN Lumen 2: Lumen 3: Peripheral IV Present on Admission: (Retired/Read Only) Location: (Retired/Read Only) Device: (Retired/Read Only) Gauge/Length: Qa Automation Engineer/Lot Number: Unsuccessful Insertion Attempts: (Retired/Read Only) Unsuccessful [...] care of this patient. Vascular Access Team [id number] [facility] 05-26-2022 Consult note Formatting of th [...] 1: Location: forearm, anterior, right Device/Lot Number: [id number] catheter system Gauge/Length: 1 3/4 in length;20 gauge Unsuccessful Insertion Attempts: 1 Unsuccessful Attempt Location/Site: Pain Prevention/Patient Tolerance: distraction;tolerated well;appears comfortable Removal: Additional Comments: placed by Carla Mccurdy RN Lumen 2: Lumen 3: Peripheral IV Present on Admission: (Retired/Read Only) Location: (Retired/Read Only) Device: (Retired/Read Only) Gauge/Length: Qa Automation Engineer/Lot Number: Unsuccessful Insertion Attempts: (Retired/Read Only) Unsuccessful [...] care of this patient. Vascular Access Team [id number] documented in this encounter [facility] 05-25-2022 Note Formatting of this n ote might be different from the original. 2124: [facility] p[facility]: Rm [phone], Kryling: FYI pt states that she can't tolerate taking the olanzapine disintegrating tablet because of the NG. Thanks [id number] [facility] 05-22-2022 Note Formatting of this [...] outcomes by discharge/transition of care. Outcome: Ongoing [facility] 05-22-2022 Note Formatting of this n ote might be different from the original. I certify that this patient requires inpatient services at this time. I anticipate the expected length of stay will include at least two midnights. Inpatient services are due to the following medical concerns appendiceal NET. Plans for post hospitalization care will be discharge to home. [facility] 05-22-2022 Note Formatting of this n ote is different from the original. 05/22/22 1608 Referral Information Arrived From home or self-care;operating room Readmission Information Was patient readmitted within 30 Days? No Information Source Information Source patient Information Source Name Zainab Swift-in person Information Source Number Demographics reviewed Outpatient Providers Outpatient Providers Updated In IHIS Yes Contact Information Wire Straightening Machine Operator/SW Added to Care Team Yes This Heavy Mobile Equipment Operator is Primary Wire Straightening Machine Operator/SW Yes (Antonio AMAYA [phone]) Wire Straightening Machine Operator Name Pinky Barcenas RN [facility] Wire Straightening Machine Operator's Social Work Contact Name Bailey WILLAMS, [facility] Architectural Modeler's Living Environment Lives With spouse Living Arrangements [...] Education And Care For Discharge? Phill Swift [phone] Can Support Person Meet The Care Needs Of The Patient? 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 Employment/Financial Concerns no Source Of Income salary/wages Financial Concerns none Insurance Medical Insurance Verified Yes Prescription Coverage Yes Pharmacy updated in IHIS Yes Initial Discharge Planning Home Care Services (CHAIRMAN & CEO) No Home Therapies (CHAIRMAN & CEO) None DME (CHAIRMAN & CEO) None Medical Supplies (CHAIRMAN & CEO) None Patient Goal for Discharge Return home with assistance from family and friends Anticipated discharge disposition Home Anticipated Services at Discharge Outpatient follow up Anticipated Changes Related to Illness none Current Discharge Risk high risk diagnoses (i.e., CHF, Stroke, DM, chronic pain, abdominal pain, nausea and vomiting) Transportation Available car Home Care Services (CHAIRMAN & CEO) Additional Home Care Services (CHAIRMAN & CEO) no Assessment/Concerns to be Addressed Concerns To Be Addressed denies needs/concerns at this time Zainab Swift is a 27 y.o. yr old female, who is now POD#0 s/p HYPERTHERMIA BY INTRACAVITARY PROBE (HIPEC) (N/A) COLECTOMY PARTIAL OPEN (Right), DEBULKING INTRA-ABDOMINAL/PELVIC/RETROPERIT CABELLO W/ OMENECTOMY & PELVIC PARA-AORTIC LYMPHADENECTOMY (N/A). [...] Lines/Drains/Tubes Abdominal incision with dressing x 2 [place] drain x 1-under distal dressing NG-low wall [...] and for discharge planning. Medical team updated. [facility] 05-22-2022 Note Formatting of this n ote might be different from the original. 1512: Report called to Jevon EMERY on [facility]. All questions answered. 1514: Patient discharged from [facility] PACU per protocol. Patient transported via gurney with side rails up x2 with HOB>30 degrees to room 1204 [facility] by Natalia EMERY and Dang LISA. Family called to patient's bedside. [facility] 05-22-2022 Note Formatting of this n ote might be different from the original. 1310: Patient arrives in [facility] PACU from OR via gurney with side rails up x2 with HOB >30 degrees, accompanied by Anesthesiologist: Carol Gupta DO; Chayo Benson MD Devulcanizer Head: VIJAYA Gamboa; VIJAYA Lopez Carrier Associate Assisting: Richard Bradshaw MD Forestry Extension Specialist: Wali Art. Patient placed on monitors, VSS. Report received from anesthesia. Patient assessed, see assessment. 1427: PACU labs and abdominal xray for NG placement cleared by Miguel Betancourt at this time. [facility] 05-22-2022 Note Formatting of this n ote is different from the original. 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 JR drain placed in pelvis. SURGEON Surgeon(s) and Role: * Archie Hugo MD, PhD - Primary ANESTHESIOLOGIST Anesthesiologist: Carol Gupta DO; Chayo Benson MD Devulcanizer Head: VIJAYA Gamboa; VIJAYA Lopez Carrier Associate Assisting: Richard Bradshaw MD Forestry Extension Specialist: Wali Art SURGICAL STAFF Supplier Relationship Director: Piedad Maki RN; Rima Medel RN Relief Supplier Relationship Director: Suri Stockton RN Relief Scrub: Ghanshyam Townsend [...] Arnold MD May 22, 2022 1:06 PM [facility] Work Phone: 05-22-2022 Note Formatting of this n ote is different from the original. 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 19 Fr drain in the pelvis coming out LLQ SURGEON Surgeon(s) and Role: * Archie Hugo MD, PhD - Primary ANESTHESIOLOGIST Anesthesiologist: Carol Gupta DO; Chayo Benson MD Devulcanizer Head: VIJAYA Gamboa; VIJAYA Lopez Carrier Associate Assisting: Richard Bradshaw MD Forestry Extension Specialist: Wali Art SURGICAL STAFF Supplier Relationship Director: Piedad Glynn, RN; Rima Medel, RN Relief Supplier Relationship Director: Suri Stockton RN Relief Scrub: Ghanshyam Townsend [...] Hong MD May 22, 2022 1:04 PM [facility] Work Phone: 05-22-2022 Note Formatting of this n ote is different from the original. SURGEONS: Archie Hugo MD, PhD STATION REPAIRER SURGEON: Rodolfo Arnold MD PROCEDURE: - Exploratory [...] second timeout per standard procedure at the [facility]. We made a midline incision using a [...] the vessel and was taken with an CONEXANCE MD-KARRIE sarmiento stapler device. Next, we began the nhayzw-cg-kueahga dissection to mobilize the colonic mesentery. We [...] filed. We then proceeded with creating a zhdh-mg-exyi functional end-to-end anastomosis between the distal ileum [...] participated for the entirety of the case. [facility] Work Phone: 05-22-2022 Nurse Surgical operation note 0815 Family notified of surgery start 1021, 121 Family updated 1228 Handoff report sent to PACU charge nurse 1255 PACU given notice of arrival 1309 Patient extubated and transported to PACU with anesthesia at bedside and on oxygen inhalation Rima Medel RN [facility] 05-22-2022 Nurse Note 0815 Family notified of surgery start 1021, 121 Family updated 1228 Handoff report sent to PACU charge nurse 1255 PACU given notice of arrival 1309 Patient extubated and transported to PACU with anesthesia at bedside and on oxygen inhalation Rima Medel RN documented in this encounter [facility] 05-22-2022 Note Formatting of this [...] Left lateral abdomen laparoscopic puncture Placement Date/Time: 10/04/22 0748 Present On Admission : no Side: Left Orientation: lateral Location: abdomen Incision Type: laparoscopic puncture Incision WDL WDL Incision (Adult, Pediatric) 04/21/22 0749 lower;medial abdomen laparoscopic puncture Placement Date/Time: 04/21/22 07 Present On Admission : no Orientation: lower;medial Location: abdomen Incision Type: laparoscopic puncture Incision WDL WDL Plan WOCT Visit Frequency Sat Last Date Seen 05/22/22 [facility] 05-22-2022 History and physical note [...] Surgeon: Archie Hugo MD, PhD; [facility] 04/08/2022 APPENDECTOMY LAPAROSCOPIC 02/03/2022 [place], [place] Family History Family History Problem Relation [...] day before surgery 05/21/2022 04/23/22 Elsie Mason APRN-BENCH MOVER FLUoxetine 40 MG capsule 40 mg, Oral, [...] hours as instructed. 05/21/2022 04/23/22 Elsie Mason APRN-BENCH MOVER Review of Systems Denies the following: Arrhythmias, [...] to the patient's satisfaction. Liza Cisneros PA-C [facility] 05-22-2022 History and physical note [...] N/A; Surgeon: Archie Hugo MD, PhD; Location: [facility] MAIN OR COLONOSCOPY DIAGNOSTIC 04/08/2022 APPENDECTOMY LAPAROSCOPIC 02/03/2022 [place], [place] Family History Family History Problem Relation [...] hours as instructed. 05/21/2022 04/23/22 Elsie Mason APRN-BENCH MOVER Review of Systems Denies the following: Arrhythmias, [...] Liza Cisneros PA-C documented in this encounter [facility] 05-21-2022 Hospital Discharge instructions Pinky Be RN - 05/21/2022 10:38 AM EDT Contacts: Archie Hugo MD Office Number: [phone] Option 1 During office hours, Wednesday through Wednesday, 8:00 AM to 4:30 PM, call the office if you have any questions or concerns. After hours, weekends and holidays call the office number and you will be transferred to the After Hours Nurse Line. Call 911 for Emergencies. Your major case detective (PCRM) has arranged your appointments for follow [...] pharmacist before using any other medicine, including unka-ssh-oslxzzm medicines, vitamins, and herbal products. Avoid taking [...] many resources are available. [facility] Information Call to request information or check hours. [facility] MiiPharos: or , www.Vulevú [facility] Care Classes: JamesCare for Life, Integrative Care Monthly Classes The [facility] for Life Program offers a series of [...] families and friends. For more information, contact ClipCard at or visit our website at www.[email or web address] Resources in [facility] include the following: The [employer] [place] [employer], [facility] Unit . The Wellness Community [facility] The Cancer Support [facility]: http://cancersupportohio.org/prog oiqc-mao-bjcedfbg/virtual-communi ty/ National Resources: [place] Cancer Society (ACS), www.cancer.org 1-573-UUK-2345, [place]: 3-289-CRV-[place]. National Comprehensive Cancer [facility] (NCCN) 2-556-299-NCCN, www.nccn.org National Cancer Spelter (NCI) 2-118-7-CANCER, www.nci.gov The following attachments cannot be sent through Care Everywhere.Lovenox or Heparin: Subcutaneous Injections ([facility]) (Tristanian)documented in this encounter [facility] 04-29-2022 Note PROCEDURE: XR HIP [...] authenticated by: CAROLYN WALSH Date: 2022-04-29 16:59 [facility] 04-29-2022 Note PROCEDURE: XR HIP [...] by: CAROLYN WALSH Date: 2022-04-29 16:59 [facility] 04-29-2022 Note PROCEDURE: XR HIP RT 2 [...] by: CAROLYN WALSH Date: 2022-04-29 16:59 [facility] 03-19-2022 History of Present illness Narrative Images [...] appendectomy on 02/03/22 for acute appendicitis at [facility]. 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 She presents to [facility] GI Surgical Oncology clinic for surgical [...] History: Procedure Laterality Date APPENDECTOMY LAPAROSCOPIC 02/03/2022 [facility], [place], [place] No Known Allergies Current Outpatient Medications [...] in our surgical oncology clinic at [facility], [facility] and [facility]. As you know, Ms. Swift is [...] the future. Sincerely, Archie Hugo MD, PhD manager library Department of Surgery Division [place] [address] Office [phone] Fax [email or web address] documented in this encounter [facility] 03-19-2022 Instructions Rhoda Lazo RN - 03/19/2022 3:00 PM EDT Pre-operative Information As a patient at the [facility], you may work with various departments and have help from many professionals. One of these is a surgical oncologist who works in the Division of Surgical Oncology. Surgical oncologists are surgeons who have completed advanced training to care for cancer patients. All of the surgical oncologists at the [facility] have completed specialized training and are board-certified. The surgeon who will be performing your surgery is Archie Hugo M.D., manager library. [address] [place] [address], [place] [address] Office phone: [phone] We are available to take calls Wednesday-Wednesday 8:00am-4:30pm. During non-business hours and holidays phone calls will be forwarded to a service covering our patients. Please communicate with our team through [facility] for non-urgent issues only. Office fax: [phone] Clinic Nurse Practitioner Raina Gomes Bilingual Customer Service Specialist Sandra Kennedy X Ray Consultant Iris Giraldo OUR TEAM OF EXPERTS Ra[facility] is associated with [facility] and is an academic medical center. Dr. Skip Le is an attending physician, the commissary production supervisor of your care. Listed below are the members of his team: Surgical Oncology Fellow: a physician who completed residency and is obtaining further education. Resident(s): a physician who has finished buyer internship and is receiving training in a specialized area (i.e. surgery) Auto Appraiser(s): a physician who has completed medical school and is in the 1st year of training Nurse Practitioner (CLINICAL REHABILITATION SPECIALIST): A registered nurse with a master's or doctoral degree who is licensed to practice; Clinic: Raina Gomes, [facility]: Nayeli [facility], Suman Jeffries, [facility], Kika Colón, [facility], Monica Jackson, [facility] Patient Care Watershed Manager (PCRM): A registered nurse who coordinates care [...] to 2 weeks to complete your request. [phone] DISABILITY FORMS This category includes any form [...] for a private room? All rooms at [facility] are private. Do you have a health social work professor available? A health social work professor is assigned to our team. How can I help my family plan for my discharge? From the moment a patient is admitted, the [facility] begin to plan for the patient s discharge. Plan to leave at 11am on the day of discharge. Discharge instructions will be given to the patient. The hospital nurse will discuss these with you. Does the [facility] precertify my surgery? Yes. The precertification department at [facility] will notify your insurance carrier. Who should I contact if I anticipate difficulty paying my bill? We want to make sure all patients have access to the quality healthcare services of [facility], and we are committed to working with you and your family to obtain appropriate financial assistance. You may contact the Office of Financial Counseling [phone] weekdays between 8am and 5pm to help determine whether you might qualify for an assistance program. Do I need to bring clothes from home to wear at the hospital? The [facility] will provide you with personal items. You may wish to bring a robe or slippers. Does the [facility] have a designated area for smoking? The [facility] does not permit smoking inside or outside the hospitals including parking areas and sidewalks. If you would like to quit, you can contact a tobacco orthodontic treatment coordinator at [phone] or the [place] Tobacco QUIT LINE at [phone]. Where can I find information about visitation, [...] someone after business hours? The office number, [phone] or [phone], is connected to an answering service after 4:30pm each weekday and on weekends, available 08/02. What number should I call if I have billing questions? Please call [facility] Central Business Office at [phone]. Please Note: In regards to termite helper pain control. You may need narcotic pain [...] call by 4 p.m., please call the [facility] Ambulatory Surgery Unit at . Follow these [...] the hospital. Do not wear makeup, nail nigerian or hair pins to the hospital. Please [...] living will or durable power of electrical manufacturing technician, please bring a copy of the documents with you. IF YOU USE CPAP BRING YOUR MACHINE WITH YOU TO THE HOSPITAL ALONG WITH THE PRESCRIPTION FOR CPAP PRESSURE LEVELS If you develop any illness, such as a cold, sore throat, cough, or fever, before your surgery, call the [facility] at and our office at [...] pulp Popsicles Ice Soft drinks Gatorade (Lemon Elem preferred) Clear broth or bouillon Jello Coffee [...] not red, orange, or purple in color. Lemon-kipnuk is preferred. You may need to pour [...] program. You can also get help through: [facility] Tobacco Dependency Clinic, National Quit Line, [employer] [place] Lung Association, [employer] [place] Cancer Society, Smokefree.gov website Stop Alcohol Use [...] (AA) http://www.aa.org/ Rethinking Drinking https://www.rethinkingdrinking.[facility].nih.gov/ National Spelter of Alcohol Abuse and Alcoholism https://niaaa.nih.gov/ Sasha Head 785-879-2300 -Inpatient, partial hospitalization and outpatient services for [...] Patient Controlled Analgesia (also known as a PORTFOLIO SPECIALIST) A PORTFOLIO SPECIALIST is a pain pump that could be [...] AM of surgery documented in this encounter [facility] 02-19-2022 Miscellaneous Notes Addended by: KARINE GALVAN on: 02/19/2022 04:15 PM Modules accepted: Orders INTESTINAL REFERRAL Let the person providing referral info know that you must speak directly to the patient. Our team cannot proceed with intake without communicating directly with the patient. 1) What is your (the patient's) direct phone contact number?- [phone] 2) What is your referring diagnosis? Appendix [...] resources available to cover travel expenses to [facility]? Yes We are currently flexible in offering initial virtual consultations for both surgery and transplant ONLY to patients living in [place], [place], and [place] through May 18, 2022. This may expand to other states depending on where the surgeon who conducts your initial visit is licensed (Dr. Wyatt is licensed in [place], [place], and [place]). If you are living in another state and desire an initial virtual consultation, you may choose to purchase a Tyromer. (Surgical or transplant evaluations are highly individualized and may be conducted either through your local providers or at the [facility]. The plan for your evaluation will be [...] for any pre-surgical testing done at the [facility], and for any post-surgical stay in [place] depending on your post-surgical course. 8) Would you be interested in participating in [facility] Online Virtual Visits for the psychosocial screening? - Yes If the patient says no, proceed as normal. If yes, please e-mail the patient and copy the health social work professor on it. She will need them to [...] have been over the past 1 year? [facility] (Submit ALL template in E-health, AND for transplant patients submit MOST RECENT template) -Where else have you been for surgeries or testing and what years? Where/when was your very first abdominal surgery? Same as above 1st abdominal surgery- 01/2022 (Submit ALL template in [facility]) 10) How many drinks of alcohol do [...] On medication - Psychiatrist (Submit request in E-health) 15) Do you have a Power of Railroad Car Checker (POA)? Do you have a Living Will?- No If so, please bring a copy of this to your appointment. 16) For females: When and where was your last mammogram (40 and up) and pap smear (16 and up)? - Needs to be within last year.- PAP- Never had & Mammo- No (Submit request in [employer] Outdoors) 17) For all patients: When and where was your last dental visit? - Needs to be within last 6 months.- about 6 months ago (Submit request in E-health) 18) If transplant- Ask patient to obtain their immunization records and have them sent to us via mail/fax.- COVID- Yes The patient has been entered into Edit, chart is created, and request to [employer] for medical records has been generated. Financial clearance has been submitted for rehab/transplant (if on TPN or has dysmotility, submit for both rehab & transplant). Chart will be given to pain coordinator. Referral received from Dr. Rodney Olivas from [facility] ([phone]) to Dr. Davies. 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 Will call patient to start intake. documented in this encounter [facility] 12-22-2021 Evaluation note Encounter Date Diagnosis Assessment [...] Follow up with primary care provider or rn obgyn if no improvement of symptoms. 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 [facility] Diagnosis Primary malignant neuroendocrine tumor of appendix Post-operative pain Other acute postoperative pain Primary malignant neuroendocrine tumor of appendix [facility] Diagnosis Primary malignant neuroendocrine tumor of appendix- Primary [facility] Diagnosis Primary malignant neuroendocrine tumor of appendix- Primary [facility] Diagnosis Primary malignant neuroendocrine tumor of appendix documented [facility]* Diagnosis Primary malignant neuroendocrine tumor of appendix [facility] Diagnosis Carcinoid syndrome- Primary SOB (shortness of breath) Shortness of breath Tachycardia Tachycardia, unspecified Antinuclear antibody (HUNTER) titer greater than 1:80 Primary malignant neuroendocrine tumor of appendix documented [facility] Diagnosis Primary malignant neuroendocrine tumor of appendix documented [facility]* Diagnosis Carcinoid syndrome SOB (shortness of breath) Shortness of breath Tachycardia Tachycardia, unspecified Primary malignant neuroendocrine tumor of appendix documented [facility] Diagnosis Fibromyalgia muscle pain- Primary Mylagia and myositis, unspecified documented in this [facility] Diagnosis Primary malignant neuroendocrine tumor of appendix- Primary [facility] Diagnosis Primary malignant neuroendocrine tumor of appendix [facility] Diagnosis 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 Neoplasm of unspecified nature of digestive system documented in this [facility]* Diagnosis Third trimester state, incidental [facility] Diagnosis Elevated liver enzymes- Primary Nonspecific elevation of levels of transaminase or lactic acid dehydrogenase (LDH) [facility] Diagnosis 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 Neoplasm of unspecified nature of digestive system Diarrhea, unspecified type Primary malignant neuroendocrine tumor of appendix Carcinoid syndrome Tachycardia Tachycardia, unspecified SOB (shortness of breath) Shortness of breath documented [facility] Diagnosis 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 Neoplasm of unspecified nature of digestive system documented [facility] assessment information available [facility] Work Phone: Evaluation note* Diagnosis Primary malignant neuroendocrine tumor of appendix- Primary [facility] Primary malignant neuroendocrine tumor of appendix [facility] Diagnosis Primary malignant neuroendocrine tumor of appendix- Primary Primary malignant neuroendocrine tumor of appendix [facility] Diagnosis Primary malignant neuroendocrine tumor of appendix [facility] N[facility] - Reported* Type Description Date Medical History chronic depression Quaam Other Hospital course Narrative No data available for this section [facility] Discharge instructions No data available for this section [facility] Progress note No data available for this section [facility] Reason for referral (narrative)* (Routine) Specialty Diagnoses / Procedures Referred By Katharine t Referred To Contact ISRRAEL Crow [address] [place] [id number] Referral ID Status Reason Start Date Expiration Date Visits Re quested Visits Authorized * (Routine) - New Request Specialty Diagnoses / Procedures Referred By Katharine t Referred To Contact Procedures PLATELET MONITORING PER PROTOCOL Archie Hugo MD, PhD [address] [place] [address] Referral ID Status Reason Start Date Expiration Date V isits Requested Visits Authorized [id number] New Request 05/22/2022 06/16/2023 1 1 * (Routine) - New Request Specialty Diagnoses / Procedures Referred By Contac t Referred To Contact Procedures DVT/VTE RISK ASSESSMENT Archie Hugo MD, PhD [address] [place] [address] Referral ID Status Reason Start Date Expiration Date V isits Requested Visits Authorized [id number] New Request 05/22/2022 06/16/2023 1 1 * (Routine) - New Request Specialty Diagnoses / Procedures Referred By Contac t Referred To Contact Procedures NO MECHANICAL DVT PROPHYLAXIS Liza Cisneros PA-C [address] [place] [address] Referral ID Status Reason Start Date Expiration Date V isits Requested Visits Authorized [id number] New Request 05/22/2022 06/16/2023 1 1 [facility] for referral (narrative)* Consultation (Routine) - New Request Specialty Diagnoses / Procedures Referred By Contac t Referred To Contact Oncology Diagnoses Primary malignant neuroendocrine tumor of appendix 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 [address] [place] [address] Andreas Ortega MD, MPH [address] [facility] [place] [address] [place] [address] Referral ID Status Reason Start Date Expiration Date V isits Requested Visits Authorized [id number] New Request 06/09/2022 07/04/2023 1 1 * MRI/CAT Scan (Routine) - New Request Specialty Diagnoses / Procedures Referred By Contac t Referred To Contact Diagnoses Primary malignant neuroendocrine tumor of appendix Procedures CT ABDOMEN/PELVIS WITH CONTRAST CHG CT SCAN,ABDOMENT AND PELVIS,W CONTRAST Raina Gomes DOOR LINER HELPER-[facility] [address] [place] [address] Referral ID Status Reason Start Date Expiration Date V isits Requested Visits Authorized [id number] New Request 06/09/2022 07/04/2023 1 1 [facility] for referral (narrative)* Consultation (Routine) - New Request Specialty Diagnoses / Procedures Referred By Contac t Referred To Contact Genetics Diagnoses Primary malignant neuroendocrine tumor of appendix Yudelka Moralez DOOR LINER HELPER-[facility] [address] [place] [address] Erin Stoner, [facility] [address] [place] [phone] Referral ID Status Reason Start Date Expiration Date V isits Requested Visits Authorized [id number] New Request 07/08/2022 08/02/2023 1 1 * MRI/CAT Scan (Routine) - New Request Specialty Diagnoses / Procedures Referred By Contac t Referred To Contact Diagnoses Primary malignant neuroendocrine tumor of appendix Procedures CT ABDOMEN/PELVIS WITH AND WITHOUT CONTRAST CHG CT SCAN,ABDOMENT AND PELVIS,Andreas Ellis MD, MPH [address] [address] Referral ID Status Reason Start Date Expiration Date V isits Requested Visits Authorized [id number] New Request 07/08/2022 08/02/2023 1 1 * Radiology (Routine) - New Request Specialty Diagnoses / Procedures Referred By Contac t Referred To Contact Diagnoses Primary malignant neuroendocrine tumor of appendix Procedures NUC PET NEUROENDOCRINE CHG NUC THERAPY HYPERTHYROID SUBSEQUENT Yudelka Moralez APRN-CNP [address] [place] [phone] Referral ID Status Reason Start Date Expiration Date V isits Requested Visits Authorized [id number] New Request 07/08/2022 08/02/2023 1 1 [facility]Cert Specialty Diagnoses / Procedures Referred By Contac t Referred To Contact Diagnoses 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] Procedures UT CHG HYPERTHERMIA RX INTRACAV PROBE UT PART REMOVAL COLON W ANASTOMOSIS UT RESECT RECURRENT PERSONNEL AND PAYROLL TECHNICIAN MALIG 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) COLECTOMY PARTIAL OPEN DEBULKING INTRA-ABDOMINAL/PELVIC/RETROPE RITONEAL W/ OMENECTOMY & PELVIC PARA-AORTIC LYMPHADENECTOMY Archie Hugo MD, PhD [address] [place] [address] [facility] [address] [place] [address] Referral ID Status Reason Start Date Expiration Date Visits Re quested Visits Authorized [id number] 1 1 [facility] Summary Purpose Family History Relationship Condition Age at Onset Recorded Date/T joel mother Hypertension Unknown Diabetes mellitus Unknown Advance Directives Advance Directive Response Recorded Date/ Time Advance Directives No December 23 11:50am Reason for Referral Specialty Diagnoses / Procedures Referred By Contac t Referred To Contact Diagnoses Elevated liver enzymes Procedures TRANSIENT ELASTOGRAPHY Dolores Johnson APRN-BENCH MOVER [address] [place] [address] Referral ID Status Reason Start Date Expiration Date V isits Requested Visits Authorized [id number] New Request 11/26/2023 12/20/2024 1 1 Specialty Diagnoses / Procedures Referred By Contac t Referred To Contact Echocardiography Diagnoses Carcinoid syndrome SOB (shortness of breath) Tachycardia Procedures ECHOCARDIOGRAM UT ECHO HEART XTHORACIC,COMPLETE W DOPPLER Yudelka Moralez APRN-BENCH MOVER [address] [place], [place] Echocardiography [place] [address] [place] [address] Referral ID Status Reason Start Date Expiration Date V isits Requested Visits Authorized [id number] Auth Not Needed 10/07/2022 11/01/2023 1 1 Specialty Diagnoses / Procedures Referred By Contac t Referred To Contact Diagnoses Primary malignant neuroendocrine tumor of appendix Procedures CT NECK WITH CONTRAST UT CT NECK TISSUE CONTRAST Yudelka Moralez APRN-BENCH MOVER [address] [place], [place] Referral ID Status Reason Start Date Expiration Date V isits Requested Visits Authorized [id number] New Request 10/07/2022 11/01/2023 1 1 Specialty Diagnoses / Procedures Referred By Contac t Referred To Contact Diagnoses Carcinoid syndrome SOB (shortness of breath) Tachycardia Primary malignant neuroendocrine tumor of appendix Procedures CT CHEST WITH CONTRAST CHG DIAGNOSTIC COMPUTED TOMOGRAPHY THORAX W/CONTRAST Yudelka Moralez APRN-BENCH MOVER [address] [place], [place] Referral ID Status Reason Start Date Expiration Date V isits Requested Visits Authorized [id number] New Request 10/07/2022 11/01/2023 1 1 Specialty Diagnoses / Procedures Referred By Contac t Referred To Contact Oncology Diagnoses Carcinoid syndrome SOB (shortness of breath) Tachycardia Yudelka Moralez APRN-BENCH MOVER [address] [place], [place] Referral ID Status Reason Start Date Expiration Date V isits Requested Visits Authorized [id number] New Request 10/07/2022 11/01/2023 1 1 Specialty Diagnoses / Procedures Referred By Contac t Referred To Contact Rheumatology Diagnoses Antinuclear antibody (HUNTER) titer greater than 1:80 Yudelka Moralez APRN-BENCH MOVER [address] [place], [place] Referral ID Status Reason Start Date Expiration Date V isits Requested Visits Authorized [id number] New Request 10/07/2022 11/01/2023 1 1 Specialty Diagnoses / Procedures Referred By Katharine morales Referred To Contact Diagnoses Primary malignant neuroendocrine tumor of appendix Procedures CT ABDOMEN/PELVIS WITH CONTRAST CHG CT SCAN,ABDOMENT AND PELVIS,W CONTRAST Raina Gomes, DOOR LINER HELPER-BENCH MOVER [address] [place] [address] Referral ID Status Reason Start Date Expiration Date Visits Re quested Visits Authorized [id number] Closed 03/19/2022 04/13/2023 1 1 Specialty Diagnoses / Procedures Referred By Katharine morales Referred To Contact TRANSPLANT Diagnoses Cancer of appendix (HCC) Procedures CONSULT TO [facility] EXPLORATORY LAPAROTOMY CELIOTOMY W/WO BIOPSY SPX Vernon Davies MD [address] [place] [address] [facility] [address] [place] [address] Referral ID Status Reason Start Date Expiration Date Visits Requested Visits Authorized [id number] Pending Review Financial Clearance Required - OON Payor 02/19/2022 02/19/2023 99 99 Chief Complaint and Reason for Visit Chief Complaint n63.0 Additional Source Comments INFORMATION SOURCE (unrecogn ized section and content) DATE CREATED AUTHOR 02/19/2021 [employer] DATE CREATED AUTHOR AUTHOR'S ORGANIZ ATION 12/25/2022 [facility] DATE CREATED AUTHOR AUTHOR'S ORGANIZ ATION 11/13/2023 [facility] EPIC DATE CREATED AUTHOR AUTHOR'S ORGANIZ ATION 02/10/2024 [facility]rig[facility] ica Center DATE CREATED AUTHOR AUTHOR'S ORGANIZ ATION 04/07/2024 [facility] DATE CREATED AUTHOR AUTHOR'S ORGANIZ ATION 04/21/2024 [facility] DATE CREATED AUTHOR AUTHOR'S ORGANIZ ATION 04/26/2024 [facility] REASON FOR VISIT (unrecogniz ed section and content) Reason Comments Referral Request Specialty Diagnoses / Procedures Referred By Katharine t Referred To Contact Diagnoses Primary malignant neuroendocrine tumor of appendix Procedures CT ABDOMEN/PELVIS WITH CONTRAST CHG CT SCAN,ABDOMENT AND PELVIS,W CONTRAST Raina Gomes DOOR LINER HELPER[facility] [address] [place] [phone] Referral ID Status Reason Start Date Expiration Date Visits Re quested Visits Authorized [id number] Closed 03/19/2022 04/13/2023 1 1 Reason Comments New Patient Specialty Diagnoses / Procedures Referred By Contac t Referred To Contact Surgical Oncology Diagnoses New patient - Appendix NET - External: Dr. Timmy Hall - Preferred: Oanh Procedures NEW ISRRAEL SURGERY Self, Self Archie Hugo MD, PhD [address] [place] [address] Referral ID Status Reason Start Date Expiration Date Visits Re quested Visits Authorized [id number] Closed 03/19/2022 04/13/2023 1 1 Reason Comments [...] malignant neuroendocrine tumor of appendix Raina Gomes DOOR LINER HELPER[facility] [address] [place] [address] Andreas Ortega MD, MPH [address] [facility] [address] [place] [address] Referral ID Status Reason Start Date Expiration Date V isits Requested Visits Authorized [id number] New Request 06/09/2022 07/04/2023 1 1 Specialty Diagnoses / Procedures Referred By Contac t Referred To Contact Diagnoses Primary malignant neuroendocrine tumor of appendix Procedures NUC PET NEUROENDOCRINE CHG NUC THERAPY HYPERTHYROID SUBSEQUENT Yudelka Moralez DOOR LINER HELPER-[facility]ENCH MOVER [address] [place] [address] Referral ID Status Reason Start Date Expiration Date Visits Re quested Visits Authorized [id number] Closed 07/08/2022 08/02/2023 1 1 Specialty Diagnoses / Procedures Referred By Contac t Referred To Contact Diagnoses Primary malignant neuroendocrine tumor of appendix Procedures CT ABDOMEN/PELVIS WITH AND WITHOUT CONTRAST CHG CT SCAN,ABDOMENT AND PELVIS,Andreas Ellis MD, MPH 2049 [facility] [place] [address] [place] [address] Referral ID Status Reason Start Date Expiration Date Visits Re quested Visits Authorized [id number] Closed 07/08/2022 08/02/2023 1 1 Reason Comments [...] of appendix Procedures CT NECK WITH CONTRAST UT CT NECK TISSUE CONTRAST Yudelka Moralez, DOOR LINER HELPER-[facility] [address] [place] [phone] Referral ID Status Reason Start Date Expiration Date Visits Re quested Visits Authorized [id number] Closed 10/07/2022 11/01/2023 1 1 Specialty Diagnoses / Procedures Referred By Katharine t Referred To Contact Echocardiography Diagnoses Carcinoid syndrome SOB (shortness of breath) Tachycardia Procedures ECHOCARDIOGRAM UT ECHO HEART XTHORACIC,COMPLETE W DOPPLER Yudelka Moralez, DOOR LINER HELPER-[facility] MOVER [address] [place] [address] Echocardiography [place] [address] [facility] [address] [place] [address] Referral ID Status Reason Start Date Expiration Date Visits Re quested Visits Authorized [id number] Closed 10/07/2022 11/01/2023 1 1 Specialty Diagnoses / Procedures Referred By Katharine morales Referred To Contact Diagnoses Carcinoid syndrome SOB (shortness of breath) Tachycardia Primary malignant neuroendocrine tumor of appendix Procedures CT CHEST WITH CONTRAST CHG DIAGNOSTIC COMPUTED TOMOGRAPHY THORAX W/CONTRAST Yudelka Moralez APRN-BENCH MOVER [address] [place] [address] Referral ID Status Reason Start Date Expiration Date Visits Re quested Visits Authorized [id number] Closed 10/07/2022 11/01/2023 1 1 Reason Comments New Patient Referred by Dorothy Moralez NP for JR. 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 Joint achy/flu symptoms, tachcardia, + HUNTER. Specialty Diagnoses / Procedures Referred By Katharine morales Referred To Contact Rheumatology / Hematology & Oncology Procedures NEW PATIENT Andreas Ortega MD, MPH [address] 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 Procedures MRI ABDOMEN/PELVIS WITHOUT CONTRAST UT MRI, ABDOMEN (MRI) UT MRI, PELVIS, W/O CONTRAST Yudelka Moralez DOOR LINER HELPER-[facility] MOVER [address] [place] [address] Referral ID Status Reason Start Date Expiration Date Visits Re quested Visits Authorized [id number] Closed 03/09/2023 04/02/2024 1 1 Reason Comments Routine Visit Referral ID Status Reason Start Date Expiration Date Visits Re quested Visits Authorized [id number] Closed 04/06/2023 04/30/2024 1 1 Reason Comments New Patient Specialty Diagnoses / Procedures Referred By Contac t Referred To Contact Gastroenterology Diagnoses Hepatomegaly Transaminitis Yudelka Moralez DOOR LINER HELPER-[facility]EN[facility] MOVER [address] [place] [address] Referral ID Status Reason Start Date Expiration Date V isits Requested Visits Authorized [id number] Pending Review 11/10/2023 12/04/2024 1 1 Reason Comments New Patient Specialty Diagnoses / Procedures Referred By Contac t Referred To Contact Oncology Diagnoses Low grade mucinous neoplasm of appendix Yudelka Moralez DOOR LINER HELPER-[facility]EN[facility] MOVER [address] [place] [address] Referral ID Status Reason Start Date Expiration Date Visits Re quested Visits Authorized [id number] Closed 11/10/2023 12/04/2024 1 1 Specialty Diagnoses / Procedures Referred By Contac t Referred To Contact Diagnoses 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 Procedures CT ABDOMEN/PELVIS WITH AND WITHOUT CONTRAST CHG CT SCAN,ABDOMENT AND PELVIS,COMBO Yudelka Moralez DOOR LINER HELPER-[facility]ENCH MOVER [address] [place] [address] Referral ID Status Reason Start Date Expiration Date Visits Re quested Visits Authorized [id number] Closed 11/10/2023 12/04/2024 1 1 Reason Onset Date Comments Advice Only 03/13/2024 Reason Onset Date Comments Change In Symptoms 04/11/2024 Specialty Diagnoses / Procedures Referred By Contac t Referred To Contact Diagnoses Primary malignant neuroendocrine tumor of appendix Procedures CT ABDOMEN/PELVIS WITH AND WITHOUT CONTRAST CHG CT ABDOMEN & PELVIS W/O CONTRST 1/> BODY RE Andreas Ortega MD, MPH [address] [facility] [address] [place] [address] Referral ID Status Reason Start Date Expiration Date Visits Re quested Visits Authorized [id number] Closed 04/11/2024 2025 1 1 Specialty Diagnoses / Procedures Referred By Contac t Referred To Contact Diagnoses Primary malignant neuroendocrine tumor of appendix Procedures NUC PET NEUROENDOCRINE CHG PET IMAGING CT ATTENUATION SKULL BASE MID-THIGH Yudelka Moralez DOOR LINER HELPER-[facility]ENCH MOVER [address] [place] [address] Referral ID Status Reason Start Date Expiration Date Visits Re quested Visits Authorized [id number] Closed 03/06/2024 03/31/2025 1 1 Source Comments (unrecognize d section and content) In the event this informatio n is protected by the Federal Confidentiality of Alcohol and Drug Abuse Patient Records regulations: The Federal rules restrict any use of the information to criminally investigate or prosecute any alcohol or drug abuse patient.[facility] Care Teams (unrecognized sec tion and content) Artist And Repertoire Manager Relationship Specialty Start Date End Date Erin Sams RN PCP - General 03/19/22 Rodney Olivas MD [facility] [place] [address] Hematology 03/19/22 Artist And Repertoire Manager Relationship Specialty Start Date End Date Erin Sams RN PCP - General 03/19/22 Rodney Olivas MD [facility] [place] [address] Hematology 03/19/22 Artist And Repertoire Manager Relationship Specialty Start Date End Date Erin Sams RN PCP - General 03/19/22 Rodney Olivas MD [address] [place] [address] Hematology 03/19/22 Artist And Repertoire Manager Relationship Specialty Start Date End Date Erin Sams RN PCP - General 03/19/22 Rodney Olivas MD [facility] [place] [address] Hematology 03/19/22 Artist And Repertoire Manager Relationship Specialty Start Date End Date Erin Sams RN PCP - General 03/19/22 Rodney Olivas MD [address] [place] [address] Hematology 03/19/22 Archie Hugo MD, PhD [address] [place] [address] Surgeon Surgical Oncology 07/08/22 Artist And Repertoire Manager Relationship Specialty Start Date End Date Erin Smas RN PCP - General 03/19/22 Rodney Olivas MD 0 [place] [address] Hematology 03/19/22 Archie Hugo MD, PhD [address] [place] [address] Surgeon Surgical Oncology 07/08/22 Artist And Repertoire Manager Relationship Specialty Start Date End Date Erin Sams RN PCP - General 03/19/22 Rodney Olivas MD [facility] [place] [address] Hematology 03/19/22 Archie Hugo MD, PhD [address] [place] [address] Surgeon Surgical Oncology 07/08/22 Artist And Repertoire Manager Relationship Specialty Start Date End Date Erin Sams RN PCP - General 03/19/22 Rodney Olivas MD [address] [place] [address] Hematology 03/19/22 Archie Hugo MD, PhD [address] [place] [address] Surgeon Surgical Oncology 07/08/22 Cheikh Coelho MD [address] [place] [address] Social Staff Worker Cardiovascular Disease 10/07/22 Artist And Repertoire Manager Relationship Specialty Start Date End Date Erin Sams RN PCP - General 03/19/22 Rodney Olivas MD [facility] [place] [address] Hematology 03/19/22 Archie Hugo MD, PhD [address] [place] [address] Surgeon Surgical Oncology 07/08/22 Cheikh Coelho MD [address] [place] [address] Social Staff Worker Cardiovascular Disease 10/07/22 Artist And Repertoire Manager Relationship Specialty Start Date End Date Erin Sams RN PCP - General 03/19/22 Rodney Olivas MD [facility] [place] [address] Hematology 03/19/22 Archie Hugo MD, PhD [address] [place] [address] Surgeon Surgical Oncology 07/08/22 Cheikh Coelho MD [address] [place] [address] Social Staff Worker Cardiovascular Disease 10/07/22 Artist And Repertoire Manager Relationship Specialty Start Date End Date Erin Sams RN PCP - General 03/19/22 Rodney Olivas MD [facility] [place] [address] Hematology 03/19/22 Archie Hugo MD, PhD [address] [place] [address] Surgeon Surgical Oncology 07/08/22 Cheikh Coelho MD [address] [place] [address] Social Staff Worker Cardiovascular Disease 10/07/22 Artist And Repertoire Manager Relationship Specialty Start Date End Date Erin Sams, RN PCP - General 03/19/22 Rodney Olivas MD [address] [place] [address] Hematology 03/19/22 Archie Hugo MD, PhD [address] [place] [address] Surgeon Surgical Oncology 07/08/22 Cheikh Coelho MD [address] [place] [address] Social Staff Worker Cardiovascular Disease 10/07/22 Artist And Repertoire Manager Relationship Specialty Start Date End Date Erin Sams CNP [address] [place] [address] PCP - General 03/10/23 Rodney Olivas MD 0 [place] [address] Hematology 03/19/22 Archie Hugo MD, PhD [address] [place] [address] Surgeon Surgical Oncology 07/08/22 Cheikh Coelho MD [address] [place] [address] Social Staff Worker Cardiovascular Disease 10/07/22 Artist And Repertoire Manager Relationship Specialty Start Date End Date Erin Sams CNP [address] [place] [address] PCP - General 03/10/23 Rodney Olivas MD [address] [place] [address] Hematology 03/19/22 Archie Hugo MD, PhD [address] [place] [phone] Surgeon Surgical Oncology 07/08/22 Cheikh Coelho MD [address] [place] [address] Social Staff Worker Cardiovascular Disease 10/07/22 Artist And Repertoire Manager Relationship Specialty Start Date End Date Erin Sams, BENCH MOVER [address] [place] [address] PCP - General 03/10/23 Rodney Olivas MD [address] [place] [address] Hematology 03/19/22 Archie Hugo MD, PhD [address] [place] [address] [place] [phone] Surgeon Surgical Oncology 07/08/22 Cheikh Coelho MD [address] [place] [phone] Social Staff Worker Cardiovascular Disease 10/07/22 Andreas Ortega MD, MPH [address] [place] [address] [place] [address] Oncologist Medical Oncology 03/31/23 Ron Ruano DO [address] [facility] [address] [place] [address] Obstetrics & Gynecology 04/06/23 Artist And Repertoire Manager Relationship Specialty Start Date End Date Erin Sams CNP [address] [place] [address] PCP - General 03/10/23 Rodney Olivas MD [address] [place] [address] Hematology 03/19/22 Archie Hugo MD, PhD [address] [facility] [address] [place] [phone] Surgeon Surgical Oncology 07/08/22 Cheikh Coelho MD [address] [place] [phone] Social Staff Worker Cardiovascular Disease 10/07/22 Andreas Ortega MD, MPH [address] [facility] 10th Floor [place] [phone] Oncologist Medical Oncology 03/31/23 Ron Ruano DO [address] [address] Obstetrics & Gynecology 04/06/23 Artist And Repertoire Manager Relationship Specialty Start Date End Date Erin Sams CNP [address] [place] [address] PCP - General 03/10/23 Rodney Olivas MD [address] [place] [address] Hematology 03/19/22 Archie Hugo MD, PhD [address] [place] [address] [place] [address] Surgeon Surgical Oncology 07/08/22 Cheikh Coelho MD [address] [place] [address] Social Staff Worker Cardiovascular Disease 10/07/22 Andreas Ortega MD, MPH [address] [place] [address] [place] [address] Oncologist Medical Oncology 03/31/23 Ron Ruano DO [address] [phone] Obstetrics & Gynecology 04/06/23 Artist And Repertoire Manager Relationship Specialty Start Date End Date Erin Sams, BENCH MOVER [address] [place] [address] PCP - General 03/10/23 Rodney Olivas MD [facility] [place] [address] Hematology 03/19/22 Archie Hugo MD, PhD [address] [place] [address] [place] [address] Surgeon Surgical Oncology 07/08/22 Cheikh Coelho MD [address] [place] [address] Social Staff Worker Cardiovascular Disease 10/07/22 Andreas Ortega MD, MPH [address] [place] [address] [place] [address] Oncologist Medical Oncology 03/31/23 Ron Ruano DO [address] [facility] [address] [place] [address] Obstetrics & Gynecology 04/06/23 Artist And Repertoire Manager Relationship Specialty Start Date End Date Erin Sams, BENCH MOVER [address] [facility] [place] [address] PCP - General 03/10/23 Rodney Olivas MD [address] [place] [address] Hematology 03/19/22 Cheikh Coelho MD [address] [place] [address] Social Staff Worker Cardiovascular Disease 10/07/22 Andreas Ortega MD, MPH [address] [place] [address] [place] [address] Oncologist Medical Oncology 03/31/23 Ron Ruano DO [address] [facility] [address] [place] [address] Obstetrics & Gynecology 04/06/23 Dolores Johnson APRN-BENCH MOVER [address] [place] [address] Assorter Laundry Certified Nurse Practitioner 02/10/24 Carol Summers MD, PhD [address] [place] [address] [place] [address] Oncologist Medical Oncology 02/10/24 Diego Apodaca MD [address] [place] [address] [address] [place] [phone] Gastroenterology 02/16/24 Team Status: Active Member Role Status Dates Erin Sams NP-C Primary Care Provider Active Team Status: Inactive Member Role Status Dates Erin Sams NP-C Primary Care Pr ovider, Attending Provider, Referring Provider Active Start: April 03, 2024 End: April 03, 2024 Artist And Repertoire Manager Relationship Specialty Start Date End Date Erin Sams CNP [address] [facility] [place] [address] PCP - General 03/10/23 Rodney Olivas MD Hematology 03/19/22 Cheikh Coelho MD [address] [place] [address] Social Staff Worker Cardiovascular Disease 10/07/22 Andreas Ortega MD, MPH [address] [place] [address] [place] [address] Oncologist Medical Oncology 03/31/23 Ron Ruano DO [address] [facility] [address] [place] [address] Obstetrics & Gynecology 04/06/23 Dolores Johnson APRN-BENCH MOVER [address] [place] [address] Assorter Laundry Certified Nurse Practitioner 02/10/24 Carol Summers MD, PhD [address] [address] [place] [address] [place] [id number] Oncologist Medical Oncology 02/10/24 Diego Apodaca MD [address] [place] [address] [address] [place] [address] Gastroenterology 02/16/24 Artist And Repertoire Manager Relationship Specialty Start Date End Date Erin Sams BENCH MOVER [address] [facility] [place] [phone] PCP - General 03/10/23 Rodney Olivas MD Hematology 03/19/22 Cheikh Coelho MD [address] [place] [address] Social Staff Worker Cardiovascular Disease 10/07/22 Andreas Ortega MD, MPH [address] [place] [address] Oncologist Medical Oncology 03/31/23 Ron Ruano DO [address] [facility] [address] [place] [address] Obstetrics & Gynecology 04/06/23 Dolores Johnson APRN-BENCH MOVER [address] [place] [address] Assorter Laundry Certified Nurse Practitioner 02/10/24 Carol Summers MD, PhD [address] [place] [address] Oncologist Medical Oncology 02/10/24 Diego Apodaca MD [address] [place] [address] [address] [place] [address] Gastroenterology 02/16/24 Artist And Repertoire Manager Relationship Specialty Start Date End Date Erin Sams, BENCH MOVER [address] [facility] [place] [address] PCP - General 03/10/23 Rodney Olivas MD Hematology 03/19/22 Cheikh Coelho MD [address] [place] [address] Social Staff Worker Cardiovascular Disease 10/07/22 Andreas Ortega MD, MPH [address] [place] [address] Oncologist Medical Oncology 03/31/23 Ron Ruano DO [address] [facility] [address] [place] [address] Obstetrics & Gynecology 04/06/23 Dolores Johnson APRN-BENCH MOVER [address] [place] [address] Assorter Laundry Certified Nurse Practitioner 02/10/24 Carol Summers MD, PhD [address] [place] [phone] Oncologist Medical Oncology 02/10/24 Diego Apodaca MD [address] [place] [address] [address] [place] [phone] Gastroenterology 02/16/24 Artist And Repertoire Manager Relationship Specialty Start Date End Date Erin Sams, BENCH MOVER [address] [facility] [place] [address] PCP - General 03/10/23 Rodney Olivas MD Hematology 03/19/22 Cheikh Coelho MD [address] [place] [phone] Social Staff Worker Cardiovascular Disease 10/07/22 Andreas Ortega MD, MPH [address] [place] [phone] Oncologist Medical Oncology 03/31/23 Ron Ruano DO [address] [facility] [address] [place] [address] Obstetrics & Gynecology 04/06/23 Dolores Johnson APRN-BENCH MOVER [address] [place] [address] Assorter Laundry Certified Nurse Practitioner 02/10/24 Carol Summers MD, PhD [address] [place] [address] Oncologist Medical Oncology 02/10/24 Diego Apodaca MD [address] [place] [address] [address] [place] [address] Gastroenterology 02/16/24 Scheduled Active and Recently [...] Alena Wade RN)2040 (Given - Provider: Craig Pagan RN) 0603 (Given - Provider: Craig Pagan RN)1213 (Given - Provider: Yvrose Chamberlain RN)2134 (Given - Provider: Craig Pagan RN) 0613 (Given - Provider: Craig Pagan [...] Wade, RN)0709 (Rate/Dose Verify - Provider: Alena Wade, RN)0809 (Stopped - Provider: Alena Wade, RN) Magnesium Sulfate 4 g in sterile [...] Verify - Provider: Yadira Grier RN)0659 (Epidural [place] Volume/Shift Total - Provider: Yadira Grier RN - Comment: shift total: 175 ml remaining)1105 (Rate/Dose Verify - Provider: Alena Wade RN)1122 (Rate/Dose Verify - Provider: Alena Wade RN)1459 (Rate/Dose Verify - Provider: Alena Wade RN)1555 (Rate/Dose Verify - Provider: Alena Wade RN)1848 (Rate/Dose Verify - Provider: Alena Wade RN)1849 (Rate/Dose Verify - Provider: Alena Wade, RN)1910 (Epidural [place] Volume/Shift Total - Provider: Alena Wade RN - Comment: 100mL left in cartridge) 0100 (Epidural [place] Volume/Shift Total - Provider: Craig Pagan RN [...] RN)2133 (See Alternative - Provider: Craig Pagan, RUPERT) [...] Tania Louis RN)213 (Given - Provider: Craig Pagan, RUPERT) 0425 (Given - Provider: Craig Pagan, RUPERT)0854 (Given - Provider: Tania Louis RN) phenol [...] Alena Wade RN)1958 (Paused - Provider: Craig Pagan, RUPERT)2003 (Restarted - Provider: Craig Pagan, RN)2036 (Stopped [...] BE BASED ON THE PRIMARY CLINICAL RECORDS. [facility], [facility]. provides no warranty or guarantee of the accuracy or completeness of information in this document.
[2024-05-03 07:35] VITALS: BP 138/91; PULSE 91; TEMP 36.2; O2SAT 98; BMI 29.6
[2024-05-03 07:56] LABS: HCG Qualitative NEGATIVE (NEGATIVE); Internal Control Within Normal Limits
[2024-05-03] MEDS: 0.9 % SODIUM CHLORIDE 500 ML 50 ML IV (08:02)
--- NOTE | 2024-05-03 08:08 | P.GSPRC_ITS ---
Date of procedure: 05/03/24 Indications for Procedure: Abdominal pain/diarrhea/abnormal CT scan/melena Pre-op diagnosis: Abdominal pain/diarrhea/abnormal CT scan/melena Post-op diagnosis: other (Normal esophagus, stomach, duodenum, colon rule out colitis and gastritis) Procedure: EGD with biopsy antrum Colonoscopy with biopsies random throughout the colon Findings: Normal esophagus, stomach, duodenum, colon [place] [facility] [place]: Stevan Fraser Procedure Summary: PROCEDURE: The patient was taken to the Endoscopy Suite, placed in the left lateral recumbent position, given IV sedation as above. The Olympus EGD scope was advanced under direct visualization to the posterior pharynx esophagus into the stomach through the pylorus into the first second third and fourth portions of the duodenum which were completely normal. There were no polyps tumors or diverticuli seen. There were no ulcers seen. The scope was returned to the stomach retroflexed on itself look at the GE junction which was normal. There were no polyps or tumors seen in the stomach. Biopsies of the stomach were taken in the antrum to rule out gastritis or H. pylori and hemostasis was maintained. Scope then withdrawn to the distal esophagus which was normal as well as the rest of the esophagus was completely normal. Scope was removed from the mouth. A rectal digital exam was performed. The sphincter tone was found to be normal. No rectal masses were appreciated. The Olympus video colonoscope was advanced under direct visualization to the rectum, sigmoid colon, descending colon, transverse colon and ascending colon to the ileocolic anastomosis which appeared normal. The scope was slowly withdrawn with air being desufflated as it was withdrawn. No gross tumors, polyps or diverticula were seen. Random biopsies of the colon were taken with hemostasis being maintained to rule out colitis since CAT scan was abnormal showing colitis. There did not appear to be any clinical signs of colitis on visualization. Scope was removed from the rectum. The patient tolerated the procedure well and went to the Recovery Area in satisfactory condition. I recommend the patient have repeat colonoscopy as needed depending on pathology. Estimated blood loss (mL): 0 Complications: No Pathology: other (Antral and random colon biopsies) Condition: stable Disposition: PACU
[2024-05-03 08:42] VITALS: BP 98/70; PULSE 90; TEMP 36.1; O2SAT 96
[2024-05-03 08:57] VITALS: BP 115/54; PULSE 92; O2SAT 97
[2024-05-03 09:12] VITALS: BP 99/65; PULSE 82; O2SAT 97
[2024-05-04 08:41] LABS: H Pylori Tissue, Urease Negative
== END 2024-05-03 09:22 | disposition home or self-care (01) ==
PROVIDERS: Anesthesiology; PCP Nurse Practitioner Family; Visit Provider Surgery
PROC: (CPT 813; principal; 2024-05-03 08:25)
DX: K52.9 Noninfective gastroenteritis and colitis, unspecified (principal); K92.1 Melena; R93.5 Abnormal findings on diagnostic imaging of other abdominal regions, including retroperitoneum; Z90.49 Acquired absence of other specified parts of digestive tract; Z85.89 Personal history of malignant neoplasm of other organs and systems; K21.9 Gastro-esophageal reflux disease without esophagitis; K29.50 Unspecified chronic gastritis without bleeding; R10.32 Left lower quadrant pain; Z86.19 Personal history of other infectious and parasitic diseases
CPT/HCPCS: 43239; 45380; 36415; 84703; 87077; 99999; J1100; J2405; J2704

== ENCOUNTER 2024-07-18 15:30 | Outpatient (OUT) | payer OTHER, SELFPAY ==
--- NOTE | 2024-07-18 15:45 | XR_ITS ---
The [address] [address] Patient Name: KRYS MARTINEZ MRN: [id number] date: 1995 Sex: F Assigned Patient Location: [facility] Current Patient Location: Accession/Order Number: [id number] Exam Date: 07/18/2024 15:39 Report Date: 07/20/2024 11:33 At the request of: ELOISE SAMS Procedure: XR lumbar spine 2-3V EXAMINATION: XR lumbar spine 2-3V HISTORY: Back pain COMPARISON: 10/15/2023 FINDINGS: BONES: Normal. No significant spondylosis, scoliosis, fracture, or visible bony lesion. DISC SPACES: Normal. No significant disc height narrowing, subluxation, or endplate abnormality. PARASPINOUS: Negative. No paraspinous abnormality is seen. OTHER: Multiple suture lines right midabdomen. XR/XR lumbar spine 2-3V IMPRESSION: No acute abnormality Electronically authenticated by: NAWAF RUIZ Date: 07/20/2024 11:33
== END 2024-07-18 15:31 | disposition home or self-care (01) ==
PROVIDERS: PCP Nurse Practitioner Family; Visit Provider Nurse Practitioner Family
DX: M54.9 Dorsalgia, unspecified (principal)
CPT/HCPCS: 72100

== ENCOUNTER 2024-08-17 19:08 | Outpatient (REF) | payer OTHER, SELFPAY ==
--- OUTSIDE RECORDS SUMMARY | 2024-08-17 19:14 | XMS_ITS | CCD ---
Author Organization [facility] Care Team Providers Care Breaker Table Worker Name Role Phone Ava Lundberg Unavailable Unavailable Primary Care Provider Unavailemanuel Sams RN, Erin Primary Care Provider Unavaildanielle Olivas MD, Rodney Unavailable Latrell EMERY, Erin Primary Care Provider Unavaildanielle Olivas MD, Rodney Unavailable Oanh DUPONT, PhD, Archie Naylor Unavailable Cheikh Coelho MD Unavailable ERIN SAMS [...] PhD, Archie C Unavailable Jordan DUPONT, MPH, [facility] Unavailable Ron Ruano DO R Unavailable RON RUANO Attending Unavailable LIZBET CAST Attending Unavailable RON RUANO Attending Unavailable ALDEN, RON Attending Unavailable ALDEN, RON Attending Unavailable ALDEN, RON Attending Unavailable ALDEN, RON Attending Unavailable SERENE, LIZBET Attending Unavailable LIZBET CAST Attending Unavailable LATRELL, ERIN S Primary Care Physician [phone] LATRELL, ERIN S Referring Unavailable Diego Apodaca Attending Unavaila ble [employer] [employer], Dolores J Unavailable Mireya DUPONT, PhD, Carol Chavez Unavailable Paulie DUPONT, Diego Morales Unavailable [phone] LEFTY Sams-C Erin Dary Primary Care Provider LEFTY Sams-C Erin Dary Attending Provider LEFTY Sams-Dayday Erin Dary Referring Provider Deisy DUPONT, Rodney Unavailable [place] [employer] FORMER, Dolores J Unavailable MAILE CHAKRABORTY Attending Unavailable [...] SUMMERS Attending Unavailable MORALEZ, YE Referring Unavailable ERIN SAMS Primary Care Unavailable DO Timmy Hall Attending Provider [phone] Latrell [employer] GAME [employer]OTECTOR-Erin BIANCHI Primary Care Provider Ron Ruano Attending Unavailable Ron Ruano Admitting Unavailable Timmy Hall Admitting Unavailable Timmy Hall Attending Unavailable Erin Sams Primary Care Unavailable Erin Sams Admitting Unavailable Erin Sams Dary Primary Care Unavailable Erin Sams Attending Unavailable Latrell Erin Dary Referring Unavailable Allergies Allergy Classification Reported Allergen(s) Allergy Type Date of Onset Reaction(s) Facility (20 sources) gabapentin; Translations: [gabapentin] Drug Allergy 10-07-2022 Nausea Only, Diarrhea, Nausea (finding), Diarrhea (finding), GI Disturbance [facility] (18 sources) metroNIDAZOLE; Translations: [metronidazole] Drug Allergy 11-26-2023 Nausea (finding), GI Disturbance [facility] Medications Current Medications Medication Drug Class(es) Dates Sig (Normalized) Sig (Original) amylase 589664 unt / lipase 17766 unt / protease 645095 unt delayed release oral capsule (20 sources) Start: 11-22-2023 Pancrelipase, Ojf-Skoa-Pyiq, (Creon) 49330-709483 units Cap DR Particles Please take one cap with each meal, and one cap with each snack. 120 capsule 11/22/2023 Active Start: 09-10-2022 Pancrelipase, Mrh-Uyga-Nweg, (Creon) 66783-078348 units Cap DR Particles Indications: Exocrine pancreatic [...] suspension (1 source) Bile Acid Sequestrant Start: cholestyramine 4 g/5 g Oral Pwdr 1 packet(s), Oral, BID, 60 EA, Refill(s) 6, [facility]/pharmacy #[id number], 154, cm, 02/07/24 8:50:00 EDT, Height/Length Dosing Start Date: 02/07/24 Status: Ordered colestipol hydrochloride 1000 mg oral tablet (3 sources) Bile Acid Sequestrant Start: colestipoL (COLESTID) 1 g tablet Take 1 tablet (1 g total) by mouth every other day. TAKE 2 TABLETS BY MOUTH TWICE A DAY WITH A FULL GLASS OF WATER, per patient every other day 02/17/2024 Active cyproheptadine hydrochloride 4 mg oral tablet [...] syndrome). 90 mL 03/17/2024 Active Start: 10-18-2023 octreotide,faiza rospheres (SandoSTATIN LAR [place]) 20 mg injection Inject 20 mg into the appropriate muscle Once every four weeks. 10/18/2023 Active Start: 10-18-2023 Octreotide chalo tierney (SandoSTATIN [...] 120 tablet 1 06/30/2023 09/28/2023 Active Start: 02-09-2023 take 1 tablet by jodi th once daily as needed for nausea ondansetron (ZOFRAN) 8 mg tablet Take 1 tablet (8 mg total) by mouth daily as needed for nausea or vomiting. 02/09/2023 Active Start: 11-25-2022 take 1 tablet by [...] Ordered Start: 12-10-2023 take 1 tablet by jdoi th every eight hours as needed for [...] End: 06-09-2022 FLUoxetine (PROZAC) capsule 40 mg Start: 01-28-2022 take 1 tablet by jodi th in the morning, then take 1 tablet by mouth at bedtime FLUoxetine (PROzac) 20 MG tablet Take 1 tablet (20 mg total) by mouth in the morning and 1 tablet (20 mg total) before bedtime. 01/28/2022 Active take 2 capsules by m outh once [...] oral spray 2 spray polyethylene glycol 3350 58902 mg powder for oral solution (2 sources) [...] AD PO) Take by mouth. Active sennosides, [facility] 8.6 mg [...] [Tachycardia, unspecified] Onset: 10-10-2022 Episodic Gastrointestinal hemorrhage (2 sources) Melena; Translations: [Black feces] Onset: 04-13-2024 05-10-2024 Episodic Genitourinary symptoms and ill-defined conditions (2 [...] D/O SINGLE EPIS UNS] Onset: 04-09-2022 Chronic Noninfectious gastroenteritis (2 sources) Noninfective gastroenteritis and colitis, unspecified; Translations: [Colitis] Onset: 04-13-2024 05-10-2024 Episodic Nutritional deficiencies (2 sources) Vitamin D [...] Mood disorders (20 sources) Mood disorders Onset: 02-18-2022 Resolved: 06-09-2022 06-09-2022 Nausea and vomiting (1 source) Nausea; Translations: [NAUSEA] Onset: 08-14-2022 Episodic Neoplasms of unspecified nature or uncertain behavior (10 sources) Neoplasm of uncertain behavior of appendix; Translations: [Neoplasm of appendix] Onset: 02-19-2022 03-09-2023 Episodic Nonmalignant breast conditions (7 sources) Unspecified lump in unspecified breast; Translations: [Solitary cyst of left breast] Onset: 09-23-2022 Episodic Other aftercare (1 source) Other alf (current) drug therapy; Translations: [OTH ARTIFICIAL CANDY MAKER CURRENT DRUG THERAPY] Onset: 04-09-2022 Episodic Other and unspecified benign neoplasm (4 sources) Other benign neuroendocrine tumors; Translations: [OTHER BENIGN NEUROENDOCRINE TUMORS] Onset: 04-08-2022 Episodic Other and unspecified benign neoplasm (1 source) Benign carcinoid tumor of the appendix; Translations: [BENIGN CARCINOID TUMOR THE APPENDIX] Onset: 02-10-2022 Episodic Other and unspecified benign neoplasm (3 sources) Neuroendocrine neoplasm of appendix; Translations: [Other benign neuroendocrine tumors] Onset: 02-19-2022 02-19-2022 Episodic Other complications of (3 sources) dysrhythmia; Translations: [Maternal care for abnormalities of the heart rate or rhythm, unspecified trimester, not applicable or unspecified] Onset: 07-07-2023 07-07-2023 Episodic Other complications of (3 sources) High risk ; Translations: [Supervision of other high risk pregnancies, second trimester] Onset: 07-07-2023 07-07-2023 Episodic Other connective tissue disease (5 sources) [...] Test Name Value Interpretation Reference Range Facility EGD / Colonoscopyon 05-03-20 [facility] Pathology Request for Lab Co rpon 05-03-2024 Pathology Request for Lab Tosin Normal [facility] Comment on above: Order Comment: PATHO LOGY GI SPECIMEN Result Comment: See report. Scanned copy available in EMR. PERFORMED BY: [place] [address] PATHOLOGIST COMPONENTS ENGINEER FELY STODDARD M.D. Performed By: #### P ATH TO [facility] #### [address] Surgical Pathologyon 024 [facility] NUC PET NEUROENDOCRINEon NUC PET NEUROENDOCRINE EXAM: [...] to suggest recurrent or metastatic disease Normal [facility] PT Skull base to mid-thighon 04-25-2024 IMPRESSION: [...] body to suggest recurrent or metastatic disease [facility] Radiology Study observation (narrative) [facility] PT Skull base to mid-thighOr dered By: Marcella Sharma on 04-25-20[address] [facility] [address] ABDOMEN/PELVIS WITH AND W ITHOUT CONTRASTon [...] disease in the abdomen and pelvis. Normal [facility] CT Abdomen and Pelvis WO and [...] metastatic disease in the abdomen and pelvis. [facility] Radiology Study observation (narrative) [facility] CT Abdomen and Pelvis WO and W contrast IVOrdered By: Mandi Montiel on 04-13-2024 [facility] Work Phone: US breast BI limitedon 04-03 US breast BI limited [facility] [place] [address] [place] [address] Ultrasound Report Signed Patient: Zainab Mcclure MR#: [id number] : 1995 Acct:[id number] Age/Sex: 28 / F ADM Date: 04/03/24 Loc: [facility] Room: Type: [facility] Attending Dr: Erin Sams NEUROPSYCHIATRIC AIDE-C Ordering Provider: Erin Sams CNP Date of Service: 04/03/24 US/US breast BI limited: N63.0 Copies to: Erin Sams CNP BILATERAL COMPLETE BREAST ULTRASOUND CLINICAL DATA: Bilateral palpable breast lumps COMPARISON: September 23, 2022 mammogram and ultrasound from [facility] Real-time ultrasound evaluation of all 4 quadrants [...] Beata Anthony M.D.04/03/2024 12:09 PM Dictation Location: [facility] Tech: Johana Edmonds Transcribed By: JOSE ELIAS 04/03/24 1209 Dictated By: Beata Anthony MD 04/03/24 0958 Signed By: 04/03/24 1209 Normal [facility] CT ABDOMEN/PELVIS WITH [...] error, please notify the sender immediately at [phone] and permanently delete the original report and destroy any copies or printouts. Normal [facility] Ambulatory Visit Summaryon 0 02-07-2024 Ambulatory [...] Unspecified abdominal pain Invalid Interpretation Code Diarrhea [facility] CBC AND ELECTRONIC DIFFon Basophils (Bld) [#/Vol] 0.06 10*3/uL Normal 0.00-0.15 [facility] Comment on above: Performed By: #### P SD, SIMFXB, PSE #### [facility] (DEFAULT) [address] [address] Basophils/100 WBC (Bld) 0.9 % Normal [facility] Comment on above: Performed By: #### P SD, SIMFXB, PSE #### [facility] (DEFAULT) [address] [address] DIFF STATUS Electronic Differential Normal [facility] Comment on above: Performed By: #### P SD, SIMFXB, PSE #### [facility] (DEFAULT) [address] [place] [address] Eosinophils (Bld) [#/Vol] 0.12 10*3/uL Normal 0.00-0.42 [facility] Comment on above: Performed By: #### P SD, SIMFXB, PSE #### [facility] (DEFAULT) [address] [place] [address] Eosinophils/100 WBC (Bld) 1.8 % Normal [facility] Comment on above: Performed By: #### P SD, SIMFXB, PSE #### [facility] (DEFAULT) [address] [place] [address] Hematocrit (Bld) [Volume fraction] 38.9 % Normal 34.9-44.3 [facility] Comment on above: Performed By: #### P SD, SIMFXB, PSE #### [facility] (DEFAULT) [address] [place] [address]139 Hemoglobin (Bld) [Mass/Vol] 12.8 g/dL Normal 11.4-15.2 [facility] Comment on above: Performed By: #### P SD, SIMFXB, PSE #### [facility] (DEFAULT) [address] [place] [address]366 Immature Grans % 0.1 % Normal [facility] Comment on above: Performed By: #### P SD, SIMFXB, PSE #### [facility] (DEFAULT) [address] [place] [address]287 Immature Grans Absolute < Normal <=0.08 [facility] Comment on above: Performed By: #### P SD, SIMFXB, PSE #### [facility] (DEFAULT) [address] [place] [address]883 Lymphocytes (Bld) [#/Vol] 2.05 10*3/uL Normal 1.16-3.51 [facility] Comment on above: Performed By: #### P SD, SIMFXB, PSE #### [facility] (DEFAULT) [address] [address] Lymphocytes/100 WBC (Bld) 30.3 % Normal [facility] Comment on above: Performed By: #### P SD, SIMFXB, PSE #### [facility] (DEFAULT) [address] [address] MCV (RBC) [Entitic vol] 86.6 fL Normal 79.6-97.7 [facility] Comment on above: Performed By: #### P SD, SIMFXB, PSE #### [facility] (DEFAULT) [address] [address] Mean Cell Hgb 28.5 pg Normal 25.9-33.9 [facility] Comment on above: Performed By: #### P SD, SIMFXB, PSE #### [facility] (DEFAULT) [address] [address] Mean Cell Hgb Conc 32.9 g/dL Normal 31.4-35.9 [facility] Comment on above: Performed By: #### P SD, SIMFXB, PSE #### [facility] (DEFAULT) [address] [address] Monocytes (Bld) [#/Vol] 0.43 10*3/uL Normal 0.22-0.87 [facility] Comment on above: Performed By: #### P SD, SIMFXB, PSE #### [facility] (DEFAULT) [address] [address] Monocytes/100 WBC (Bld) 6.4 % Normal [facility] Comment on above: Performed By: #### P SD, SIMFXB, PSE #### [facility] (DEFAULT) [address] [address] Nucleated RBC 0.0 /100 WBC Normal <=0.2 [facility] Comment on above: Performed By: #### P SD, SIMFXB, PSE #### [facility] (DEFAULT) [address] [place] [address]93 Platelet mean volume (Bld) [Entitic vol] 9.5 fL Normal 8.5-12.2 [facility] Comment on above: Performed By: #### P SD, SIMFXB, PSE #### [facility] (DEFAULT) [address] [place] [address]693 Platelets (Bld) [#/Vol] 307 10*3/uL Normal 150-393 [facility] Comment on above: Performed By: #### P SD, SIMFXB, PSE #### [facility] (DEFAULT) [address] [place] [address]344 RBC (Bld) [#/Vol] 4.49 10*6/uL Normal 3.91-5.04 [facility] Comment on above: Performed By: #### P SD, SIMFXB, PSE #### [facility] (DEFAULT) [address] [place] [address] RBC Distribution 12.0 % Normal 10.8-14.9 [facility] Comment on above: Performed By: #### P SD, SIMFXB, PSE #### [facility] (DEFAULT) [address] [place] [address] Segs + Bands Auto 60.5 % Normal [facility] Comment on above: Performed By: #### P SD, SIMFXB, PSE #### [facility] (DEFAULT) [address] [place] [address] Segs + Bands,Absolute Auto 4.09 K/uL Normal 1.64-7.28 [facility] Comment on above: Performed By: #### P SD, SIMFXB, PSE #### [facility] (DEFAULT) [address] [place] [address] WBC (Bld) [#/Vol] 6.76 10*3/uL Normal 3.99-11.19 [facility] Comment on above: Performed By: #### P MUNIR, SIMFXB, PSE #### [facility] (DEFAULT) [address] [place] [address] 25061 CEAon 02-07-2024 Cea <2.0 Normal <=5.0 [facility] Comment on above: Result Comment: This test was performed on the IMayGou Immunoassay platform which is a 2-step sandwich chemiluminescent immunoassay. It is important to note that assays using different manufacturers and/or methods may not be comparable. Performed By: #### F ERIB, TSH #### [facility] (DEFAULT) [address] [place] [address] CHROMOGRANIN Aon 02-07-2024 Chromogranin A <20 Normal <93 [facility] Comment on above: Result Comment: ADDITIONAL INFORMATION The testing method is a homogeneous time-resolved immunofluorescent assay manufactured by [employer] and performed on the [employer] Kryptor Compact Plus. Values obtained with different [...] examination and other findings. Test Performed by: [facility] [address] [place] [address] Plumbing Instructor: Jami Sher Ph.D.; CLIA# [id number] Performed By: #### P SD, SIMFXB, PSE #### [facility] (DEFAULT) [address] [place] [address] COMPREHENSIVE METABOLIC PANE Shamir 02-07-2024 Albumin [Mass/Vol] 4.8 g/dL Normal 3.5-5.0 [facility] Comment on above: Performed By: #### P SD, SIMFXB, PSE #### [facility] (DEFAULT) [address] [place] [address] ALP [Catalytic activity/Vol] 56 U/L Normal 32-126 [facility] Comment on above: Performed By: #### P SD, SIMFXB, PSE #### [facility] (DEFAULT) [address] [place] [address] 34598 ALT [Catalytic activity/Vol] 41 U/L Normal 9-48 [facility] Comment on above: Performed By: #### P SD, SIMFXB, PSE #### [facility] (DEFAULT) [address] [place] [address] Anion gap [Moles/Vol] 11 mmol/L Normal 7-17 [facility] Comment on above: Performed By: #### P SD, SIMFXB, PSE #### [facility] (DEFAULT) [address] [place] [address] 26148 AST [Catalytic activity/Vol] 26 U/L Normal 10-39 [facility] Comment on above: Performed By: #### P SD, SIMFXB, PSE #### [facility] (DEFAULT) [address] [place] [address] 22406 Bilirubin [Mass/Vol] 0.7 mg/dL Normal <1.5 [facility] Comment on above: Performed By: #### P SD, SIMFXB, PSE #### [facility] (DEFAULT) [address] [place] [address] 41920 Calcium [Mass/Vol] 9.5 mg/dL Normal 8.6-10.5 [facility] Comment on above: Performed By: #### P SD, SIMFXB, PSE #### [facility] (DEFAULT) [address] [place] [address] 17941 Chloride [Moles/Vol] 98 mmol/L Normal 98-108 [facility] Comment on above: Performed By: #### P SD, SIMFXB, PSE #### [facility] (DEFAULT) [address] [place] [address] 58227 CO2 [Moles/Vol] 29 mmol/L Normal 21-31 [facility] Comment on above: Performed By: #### P SD, SIMFXB, PSE #### [facility] (DEFAULT) [address] [place] [address]96 Creatinine [Mass/Vol] 0.58 mg/dL Normal 0.50-1.20 [facility] Comment on above: Performed By: #### P SD, SIMFXB, PSE #### [facility] (DEFAULT) [address] [place] [address] eGFR, CKD-EPI, Female > Normal >=60 [facility] Comment on above: Result Comment: Repo rted eGFR is based on the CKD-EPI 2020 equation using creatinine, age, and sex. Performed By: #### P SD, SIMFXB, PSE #### [facility] (DEFAULT) [address] [place] [address] Glucose [Mass/Vol] 108 mg/dL High 70-99 [facility] Comment on above: Performed By: #### P SD, SIMFXB, PSE #### [facility] (DEFAULT) [address] [place] [address] Osmolality [Osmolality] 280 mosm/kg Normal 278-305 [facility] Comment on above: Performed By: #### P SD, SIMFXB, PSE #### [facility] (DEFAULT) [address] [place] [address] Potassium [Moles/Vol] 4.0 mmol/L Normal 3.5-5.0 [facility] Comment on above: Performed By: #### P SD, SIMFXB, PSE #### [facility] (DEFAULT) [address] [place] [address] Protein [Mass/Vol] 7.5 g/dL Normal 6.4-8.3 [facility] Comment on above: Performed By: #### P SD, SIMFXB, PSE #### [facility] (DEFAULT) [address] [place] [address] 11036 Sodium [Moles/Vol] 134 mmol/L Low 135-145 [facility] Comment on above: Performed By: #### P SD, SIMFXB, PSE #### [facility] (DEFAULT) [address] [place] [address] 96786 Urea nitrogen [Mass/Vol] 6 mg/dL Low 7-25 [facility] Comment on above: Performed By: #### P SD, SIMFXB, PSE #### [facility] (DEFAULT) [address] [place] [address] 38940 Urea nitrogen/Creatinine [Mass ratio] 10 mg/mg Normal [facility] Comment on above: Performed By: #### P SD, SIMFXB, PSE #### [facility] (DEFAULT) [address] [place] [address] Gastroenterology Office/Clin ic Noteon 02-07-2024 Gastroenterology Office/Clinic Note Gastroenterology Office/Clinic Note Chief Complaint diarrhea HPI Staff Patient is a 28 year old female who was referred by Latrell for diarrhea w/associated abd pain. Hx C. Diff. Hx appendectomy, hemicolectomy and C. section. 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 Last colon 03/2022- prior to the hemicolectomy @ [facility]. Has a pelvic CT later this week at [facility]. PCP gave Augmentin in September and Azithromycin [...] and reactive mesothelial proliferation. CT 12/22/23 @ [facility]: Impression: 1. Postsurgical changes consistent with partial [...] visualized on this exam. Labs 12/02/23 @ [facility]: TSH: 3.169 AST: 38 (H) ALT 93 [...] other infect (more content not included)... Normal [facility] Comment on above: Result Comment: Elec tronically Signed By: Paulie DUPONT, Diego Umana\.br\Date and Time Signed: 02/07/24 09:35 EDT LACTATE DEHYDROGENASEon 01-17 LD Total 110 U/L Normal 100-190 [facility] Comment on above: Performed By: #### P SD, SIMFXB, PSE #### [facility] (DEFAULT) [address] [address] TCCP - GOLDon 02-07-2024 CANCER CARE PROTOCOL Done Normal [facility] Comment on above: Performed By: #### F ERIB, TSH #### [facility] (DEFAULT) [address] [address] Performed By: #### P RUFINO AMARAL PSE #### [facility] (DEFAULT) [address] [address] ALPHA 1 ANTITRYPSINon 2023 Alpha 1 antitrypsin [Mass/Vol] 125 mg/dL 84 - 218 mg/dL [facility] Alpha 1 Antitrypsin 125 mg/dL Normal 84-218 [facility] Comment on above: Performed By: #### Q IMM, A1AT, CERP #### [facility] (DEFAULT) [address] [address] [id number] PHENOTYP Timothy 11-26-2023 ALPHA 1 ANTITRYPSIN PHENOTYPE MM Normal [facility] Comment on above: Result Comment: A si ngle M isoform is detected. In the context of a normal vwuge-3-pykquueknvc concentration, this is consistent with an MM phenotype. ADDITIONAL INFORMATION Method: Isoelectric Focusing, This assay identifies the phenotype of the circulating csjld-6-xwcvjgqqmhz (A1A) protein. If the patient is on replacement therapy or has been recently transfused, the phenotype will detect patient and replacement or transfused plasma A1A protein. This test also cannot detect a null allele which could be responsible for an A1A deficiency. Performed By: #### P RUFINO AMARAL PSE #### [facility] (DEFAULT) [address] [address] Fcbnp-1-Hetdhbncuow S Allele 120 mg/dL Normal 100-190 [facility] Comment on above: Result Comment: ADDITIONAL INFORMATION Method: Nephelometry Test Performed by: [facility] [place] [address] Plumbing Instructor: Ed Russo M.D. Ph.D.; CLIA# [id number] Performed By: #### P SD, SIMFXB, PSE #### [facility] (DEFAULT) [address] [place] [address] HUNTER SCREEN IFAon 11-26-2023 Anti Nuclear Antibody Pattern Homogenous/Diffuse Normal [facility] Comment on above: Performed By: #### P SD, SIMFXB, PSE #### [facility] (DEFAULT) [address] [place] [address] Antinuclear Antibody, IFA Positive Abnormal Negative [facility] Comment on above: Performed By: #### P SD, SIMFXB, PSE #### [facility] (DEFAULT) [address] [place] [address] 33771 Quant Antinuclear Antibody 1:80 Abnormal (none) [facility] Comment on above: Performed By: #### P SD, SIMFXB, PSE #### [facility] (DEFAULT) [address] [place] [address] 07996 ANTI MITOCHONDRIAL ANTIBODYo n 11-26-2023 Anti-Mitochondrial Antibody Negative Normal Negative [facility] Comment on above: Performed By: #### P SD, SIMFXB, PSE #### [facility] (DEFAULT) [address] [place] [address] 54573 ANTI SMOOTH MUSCLE ANTIBODYo n 11-26-2023 Smooth Muscle Antibody Negative Normal Negative [facility] Comment on above: Performed By: #### P SD, SIMFXB, PSE #### [facility] (DEFAULT) [address] [place] [address] 45299 CBC AND ELECTRONIC DIFFon Basophils (Bld) [#/Vol] 0.05 10*3/uL Normal 0.00-0.15 [facility] Comment on above: Performed By: #### P SD, SIMFXB, PSE #### [facility] (DEFAULT) [address] [place] [address] 33399 Basophils/100 WBC (Bld) 0.6 % Normal [facility] Comment on above: Performed By: #### P SD, SIMFXB, PSE #### [facility] (DEFAULT) [address] [place] [address] 26730 DIFF STATUS Electronic Differential Normal [facility] Comment on above: Performed By: #### P SD, SIMFXB, PSE #### [facility] (DEFAULT) [address] [place] [address] 44511 Eosinophils (Bld) [#/Vol] 0.15 10*3/uL Normal 0.00-0.42 [facility] Comment on above: Performed By: #### P SD, SIMFXB, PSE #### [facility] (DEFAULT) [address] [place] [address] 30605 Eosinophils/100 WBC (Bld) 1.9 % Normal [facility] Comment on above: Performed By: #### P SD, SIMFXB, PSE #### [facility] (DEFAULT) [address] [place] [address] 57394 Hematocrit (Bld) [Volume fraction] 42.6 % Normal 34.9-44.3 [facility] Comment on above: Performed By: #### P SD, SIMFXB, PSE #### [facility] (DEFAULT) [address] [place] [address] 26848 Hemoglobin (Bld) [Mass/Vol] 13.6 g/dL Normal 11.4-15.2 [facility] Comment on above: Performed By: #### P SD, SIMFXB, PSE #### [facility] (DEFAULT) [address] [place] [address] 15285 Immature Grans % 0.5 % Normal [facility] Comment on above: Performed By: #### P SD, SIMFXB, PSE #### [facility] (DEFAULT) [address] [place] [address] 32464 Immature Grans Absolute 0.04 K/uL Normal <=0.08 [facility] Comment on above: Performed By: #### P SD, SIMFXB, PSE #### [facility] (DEFAULT) [address] [place] [address] 04323 Lymphocytes (Bld) [#/Vol] 2.06 10*3/uL Normal 1.16-3.51 [facility] Comment on above: Performed By: #### P SD, SIMFXB, PSE #### [facility] (DEFAULT) [address] [place] [address] 77302 Lymphocytes/100 WBC (Bld) 25.8 % Normal [facility] Comment on above: Performed By: #### P SD, SIMFXB, PSE #### [facility] (DEFAULT) [address] [place] [address] 44278 MCV (RBC) [Entitic vol] 88.9 fL Normal 79.6-97.7 [facility] Comment on above: Performed By: #### P SD, SIMFXB, PSE #### [facility] (DEFAULT) [address] [place] [address] 36678 Mean Cell Hgb 28.4 pg Normal 25.9-33.9 [facility] Comment on above: Performed By: #### P SD, SIMFXB, PSE #### [facility] (DEFAULT) [address] [address] Mean Cell Hgb Conc 31.9 g/dL Normal 31.4-35.9 [facility] Comment on above: Performed By: #### P SD, SIMFXB, PSE #### [facility] (DEFAULT) [address] [address] Monocytes (Bld) [#/Vol] 0.40 10*3/uL Normal 0.22-0.87 [facility] Comment on above: Performed By: #### P SD, SIMFXB, PSE #### [facility] (DEFAULT) [address] 24[address] Monocytes/100 WBC (Bld) 5.0 % Normal [facility] Comment on above: Performed By: #### P SD, SIMFXB, PSE #### [facility] (DEFAULT) [address] [place] [address] 91146 Nucleated RBC 0.0 /100 WBC Normal <=0.2 [facility] Comment on above: Performed By: #### P SD, SIMFXB, PSE #### [facility] (DEFAULT) [address] [place] [address] 23544 Platelet mean volume (Bld) [Entitic vol] 10.2 fL Normal 8.5-12.2 [facility] Comment on above: Performed By: #### P SD, SIMFXB, PSE #### [facility] (DEFAULT) [address] [place] [address] 68406 Platelets (Bld) [#/Vol] 379 10*3/uL Normal 150-393 [facility] Comment on above: Performed By: #### P SD, SIMFXB, PSE #### [facility] (DEFAULT) [address] [place] [address] 99054 RBC (Bld) [#/Vol] 4.79 10*6/uL Normal 3.91-5.04 [facility] Comment on above: Performed By: #### P SD, SIMFXB, PSE #### [facility] (DEFAULT) [address] [address] RBC Distribution 12.8 % Normal 10.8-14.9 [facility] Comment on above: Performed By: #### P SD, SIMFXB, PSE #### [facility] (DEFAULT) [address] [place] [address] 59045 Segs + Bands Auto 66.2 % Normal [facility] Comment on above: Performed By: #### P SD, SIMFXB, PSE #### [facility] (DEFAULT) [address] [address] Segs + Bands,Absolute Auto 5.27 K/uL Normal 1.64-7.28 [facility] Comment on above: Performed By: #### P SD, SIMFXB, PSE #### [facility] (DEFAULT) [address] [place] [address] WBC (Bld) [#/Vol] 7.97 10*3/uL Normal 3.99-11.19 [facility] Comment on above: Performed By: #### P SD, SIMFXB, PSE #### [facility] (DEFAULT) [address] [place] [address] CERULOPLASMINon 11-26-2023 Ceruloplasmin [Mass/Vol] 31 mg/dL 20 - 60 mg/dL [facility] Ceruloplasmin 31 mg/dL Normal 20-60 [facility] Comment on above: Performed By: #### Q IMM, A1AT, CERP #### [facility] (DEFAULT) [address] [place] [address] 34118 CHEM 7 (LYTES,BUN,CREA,GLUC) on 11-26-2023 Anion gap [Moles/Vol] 17 mmol/L 7 - 17 mmol/L [facility] Chloride [Moles/Vol] 102 mmol/L 98 - 10 8 mmol/L [facility] CO2 [Moles/Vol] 26 mmol/L 21 - 31 mmol/L [facility] Creatinine [Mass/Vol] 0.55 mg/dL 0.50 - 1.20 mg/dL [facility] eGFR, CKD-EPI, Female - PINF [facility] Comment on above: Reported eGFR is bas ed on the CKD-EPI 2020 equation using creatinine, age, and sex. Glucose [Mass/Vol] 123 mg/dL High 70 - 99 mg/dL [facility] Osmolality Calc [Osmolality] 294 [facility] Potassium [Moles/Vol] 3.8 mmol/L 3.5 - 5.0 mmol/L [facility] Sodium [Moles/Vol] 141 mmol/L 135 - 145 mmol/L [facility] Urea nitrogen [Mass/Vol] 7 mg/dL 7 - 25 mg/dL [facility] Urea nitrogen/Creatinine [Mass ratio] 13 mg/mg [facility] Anion gap [Moles/Vol] 17 mmol/L Normal 7-17 [facility] Comment on above: Performed By: #### I RBC, HFP, CHM7 #### [facility] (DEFAULT) [address] [place] [address] 02290 Chloride [Moles/Vol] 102 mmol/L Normal 98-108 [facility] Comment on above: Performed By: #### I RBC, HFP, CHM7 #### [facility] (DEFAULT) [address] [place] [address] 45063 CO2 [Moles/Vol] 26 mmol/L Normal 21-31 [facility] Comment on above: Performed By: #### I RBC, HFP, CHM7 #### [facility] (DEFAULT) [address] [place] [address] 60353 Creatinine [Mass/Vol] 0.55 mg/dL Normal 0.50-1.20 [facility] Comment on above: Performed By: #### I RBC, HFP, CHM7 #### [facility] (DEFAULT) [address] [place] [address] 79336 eGFR, CKD-EPI, Female > Normal >=60 [facility] Comment on above: Result Comment: Repo rted eGFR is based on the CKD-EPI 2020 equation using creatinine, age, and sex. Performed By: #### I RBC, HFP, CHM7 #### [facility] (DEFAULT) [address] [place] [address] 52951 Glucose [Mass/Vol] 123 mg/dL High 70-99 [facility] Comment on above: Performed By: #### I RBC, HFP, CHM7 #### [facility] (DEFAULT) [address] [place] [address] 93087 Osmolality [Osmolality] 294 mosm/kg Normal 278-305 [facility] Comment on above: Performed By: #### I RBC, HFP, CHM7 #### [facility] (DEFAULT) [address] [place] [address] 48723 Potassium [Moles/Vol] 3.8 mmol/L Normal 3.5-5.0 [facility] Comment on above: Performed By: #### I RBC, HFP, CHM7 #### [facility] (DEFAULT) [address] [place] [address] 18192 Sodium [Moles/Vol] 141 mmol/L Normal 135-145 [facility] Comment on above: Performed By: #### I RBC, HFP, CHM7 #### [facility] (DEFAULT) [address] [place] [address] 52565 Urea nitrogen [Mass/Vol] 7 mg/dL Normal 7-25 [facility] Comment on above: Performed By: #### I RBC, HFP, CHM7 #### [facility] (DEFAULT) [address] [place] [address] 66727 Urea nitrogen/Creatinine [Mass ratio] 13 mg/mg Normal [facility] Comment on above: Performed By: #### I RBC, HFP, CHM7 #### [facility] (DEFAULT) [address] [place] [address] 06041 FERRITINon 11-26-2023 Ferritin [Mass/Vol] 26.5 ng/mL 7.3 - 27 0.7 ng/mL [facility] Interpretation and review of laboratory results Normal [facility] Ferritin [Mass/Vol] 26.5 ng/mL Normal 7.3-270.7 [facility] Comment on above: Performed By: #### F ERIB, TSH #### [facility] (DEFAULT) [address] [place] [address] 20226 HEPATIC FUNCTION PANELon Albumin [Mass/Vol] 4.7 g/dL 3.5 - 5.0 g/dL [facility] ALP [Catalytic activity/Vol] 67 U/L 32 - 126 U/L [facility] ALT [Catalytic activity/Vol] 68 U/L High 9 - 48 U/L [facility] AST [Catalytic activity/Vol] 42 U/L High 10 - 39 U/L [facility] Bilirubin [Mass/Vol] 0.5 mg/dL NINF - 1.5 mg/dL [facility] Bilirubin.direct [Mass/Vol] 0.1 mg/dL NINF - 0.3 mg/dL [facility] Protein [Mass/Vol] 7.4 g/dL 6.4 - 8.3 g/dL [facility] Albumin [Mass/Vol] 4.7 g/dL Normal 3.5-5.0 [facility] Comment on above: Performed By: #### F ERIB, TSH #### [facility] (DEFAULT) [address] [place] [address] ALP [Catalytic activity/Vol] 67 U/L Normal 32-126 [facility] Comment on above: Performed By: #### F ERIB, TSH #### [facility] (DEFAULT) [address] [place] [address] ALT [Catalytic activity/Vol] 68 U/L High 9-48 [facility] Comment on above: Performed By: #### F ERIB, TSH #### [facility] (DEFAULT) [address] [place] [address] AST [Catalytic activity/Vol] 42 U/L High 10-39 [facility] Comment on above: Performed By: #### F ERIB, TSH #### [facility] (DEFAULT) [address] [place] [address] Bilirubin [Mass/Vol] 0.5 mg/dL Normal <1.5 [facility] Comment on above: Performed By: #### F ERIB, TSH #### [facility] (DEFAULT) [address] [place] [address] Bilirubin.indirect [Mass/Vol] 0.1 mg/dL Normal <0.3 [facility] Comment on above: Performed By: #### F ERIB, TSH #### [facility] (DEFAULT) [address] [place] [address] Protein [Mass/Vol] 7.4 g/dL Normal 6.4-8.3 [facility] Comment on above: Performed By: #### F ERIB, TSH #### [facility] (DEFAULT) [address] [place] [address] 63682 IMMUNOFIXATION SERUMon 11-25 REVIEWED BY: Timmy Morel MD Normal [facility] Comment on above: Performed By: #### P SD, SIMFXB, PSE #### [facility] (DEFAULT) [address] [place] [address] 41503 Serum Immunofixation No definitive monoclonal protein is identified. Normal [facility] Comment on above: Performed By: #### P SD, SIMFXB, PSE #### [facility] (DEFAULT) [address] [place] [address] 50330 IMMUNOGLOBULINS IGG IGA IGMo n 11-26-2023 IgA [Mass/Vol] 179 mg/dL Normal 66-433 [facility] Comment on above: Performed By: #### Q IMM, A1AT, CERP #### [facility] (DEFAULT) [address] [place] [address] 74256 IgG [Mass/Vol] 847 mg/dL Normal 600-1714 [facility] Comment on above: Performed By: #### Q IMM, A1AT, CERP #### [facility] (DEFAULT) [address] [place] [address] 67796 IgM [Mass/Vol] 138 mg/dL Normal 45-281 [facility] Comment on above: Performed By: #### Q IMM, A1AT, CERP #### [facility] (DEFAULT) [address] [place] [address] 65124 IRON/IRON BINDING/TRANSFERRI Non 11-26-2023 Interpretation and review of laboratory results Normal [facility] Iron [Mass/Vol] 79 ug/dL [facility] Iron binding capacity [Mass/Vol] 346 [facility] Iron saturation [Mass fraction] 23 % 20 - 55 % [facility] Transferrin [Mass/Vol] 277 mg/dL 200 - 400 mg/dL [facility] Iron [Mass/Vol] 79 ug/dL Normal 40-174 [facility] Comment on above: Performed By: #### I RBC, HFP, CHM7 #### [facility] (DEFAULT) [address] [place] [address] 16180 Iron Saturation 23 % Normal 20-55 [facility] Comment on above: Performed By: #### I RBC, HFP, CHM7 #### [facility] (DEFAULT) [address] [place] [address] 05867 Total Iron Binding Capacity 346 mcg/dL Normal 250-425 [facility] Comment on above: Performed By: #### I RBC, HFP, CHM7 #### [facility] (DEFAULT) [address] [place] [address] 81390 Transferrin [Mass/Vol] 277 mg/dL Normal 200-400 [facility] Comment on above: Performed By: #### I RBC, HFP, CHM7 #### [facility] (DEFAULT) [address] [place] [address] 59349 No Panel Informationon 11-25 Interpretation and review of laboratory results Abnormal [facility] Interpretation and review of laboratory results Normal [facility] PROTEIN ELECTROPHORESISon Albumin [Mass/Vol] 4.6 g/dL Normal 3.5-5.0 [facility] Comment on above: Performed By: #### P SD, SIMFXB, PSE #### [facility] (DEFAULT) [address] [place] [address] 45023 Alpha 1 0.3 g/dL Normal 0.2-0.4 [facility] Comment on above: Performed By: #### P SD, SIMFXB, PSE #### [facility] (DEFAULT) [address] [place] [address] 17431 Alpha 2 0.8 g/dL Normal 0.5-1.0 [facility] Comment on above: Performed By: #### P SD, SIMFXB, PSE #### [facility] (DEFAULT) [address] [place] [address] 19172 Beta 0.9 g/dL Normal 0.5-1.1 [facility] Comment on above: Performed By: #### P SD, SIMFXB, PSE #### [facility] (DEFAULT) [address] [place] [address] 81527 Gamma 0.8 g/dL Normal 0.6-1.5 [facility] Comment on above: Performed By: #### P SD, SIMFXB, PSE #### [facility] (DEFAULT) [address] [place] [address] 92396 Interpretation By: Timmy Morel MD Normal [facility] Comment on above: Performed By: #### P SD, SIMFXB, PSE #### [facility] (DEFAULT) [address] [address] Spe Interpretation Normal serum protein electrophoresis pattern. Normal [facility] Comment on above: Performed By: #### P SD, SIMFXB, PSE #### [facility] (DEFAULT) [address] [place] [address] 03981 PROTIME-INRon 11-26-2023 INR Coag (Bld) [Relative time] 1.0 {INR} 0.9 - 1.1 [facility] Interpretation and review of laboratory results Normal [facility] PT Coag (PPP) [Time] 13.4 s [facility] INR Coag (PPP) [Relative time] 1.0 {INR} Normal 0.9-1.1 [facility] Comment on above: Performed By: #### P SD, SIMFXB, PSE #### [facility] (DEFAULT) [address] [address] PT Coag (PPP) [Time] 13.4 s Normal 11.9-14.2 [facility] Comment on above: Performed By: #### P SD, SIMFXB, PSE #### [facility] (DEFAULT) [address] [place] [address] 16843 SPE SERUM TOTAL PROTEINon Protein [Mass/Vol] 7.3 g/dL Normal 6.4-8.3 [facility] Comment on above: Performed By: #### P SD, SIMFXB, PSE #### [facility] (DEFAULT) [address] [place] [address] 12120 T-TRANSGLUTAMINASE IGG/IGA, ABon 11-26-2023 T-TRANSGLUTAMINASE IGA AB <1.2 Normal <4.0 (Negative) [facility] Comment on above: Performed By: #### P SD, SIMFXB, PSE #### [facility] (DEFAULT) [address] [place] [address] 50569 Tissue Transglutaminase, IgG 2.4 U/mL Normal <6.0 (Negative) [facility] Comment on above: Result Comment: Test Performed by: [facility] [address] [place] [address] Plumbing Instructor: Ed Russo M.D. Ph.D.; CLIA# [id number] Performed By: #### P SD, SIMFXB, PSE #### [facility] (DEFAULT) [address] [place] [address] 62904 TSHon 11-26-2023 Interpretation and review of laboratory results Normal [facility] TSH Qn 1.315 m[IU]/L [facility] TSH 1.315 uIU/mL Normal 0.550-4.780 [facility] Comment on above: Performed By: #### F ERIB, TSH #### [facility] (DEFAULT) [address] [place] [address] ABDOMEN/PELVIS WITH AND W ITHOUT CONTRASTon [...] error, please notify the sender immediately at [phone] and permanently delete the original report and destroy any copies or printouts. Normal [facility] CBC AND ELECTRONIC DIFFon Basophils (Bld) [#/Vol] 0.05 10*3/uL Normal 0.00-0.15 [facility] Comment on above: Performed By: #### P SD, SIMFXB, PSE #### [facility] (DEFAULT) [address] [place] [address] 25018 Basophils/100 WBC (Bld) 0.6 % Normal [facility] Comment on above: Performed By: #### P SD, SIMFXB, PSE #### [facility] (DEFAULT) [address] [place] [address] 07474 DIFF STATUS Electronic Differential Normal [facility] Comment on above: Performed By: #### P SD, SIMFXB, PSE #### [facility] (DEFAULT) [address] [place] [address] 08490 Eosinophils (Bld) [#/Vol] 0.19 10*3/uL Normal 0.00-0.42 [facility] Comment on above: Performed By: #### P SD, SIMFXB, PSE #### [facility] (DEFAULT) [address] [place] [address] 33162 Eosinophils/100 WBC (Bld) 2.3 % Normal [facility] Comment on above: Performed By: #### P SD, SIMFXB, PSE #### [facility] (DEFAULT) [address] [place] [address] 68887 Hematocrit (Bld) [Volume fraction] 41.9 % Normal 34.9-44.3 [facility] Comment on above: Performed By: #### P SD, SIMFXB, PSE #### [facility] (DEFAULT) [address] [place] [address] 43942 Hemoglobin (Bld) [Mass/Vol] 13.5 g/dL Normal 11.4-15.2 [facility] Comment on above: Performed By: #### P SD, SIMFXB, PSE #### [facility] (DEFAULT) [address] [address] Immature Grans % 0.2 % Normal [facility] Comment on above: Performed By: #### P SD, SIMFXB, PSE #### [facility] (DEFAULT) [address] [address] Immature Grans Absolute < Normal <=0.08 [facility] Comment on above: Performed By: #### P SD, SIMFXB, PSE #### [facility] (DEFAULT) [address] [address] Lymphocytes (Bld) [#/Vol] 2.07 10*3/uL Normal 1.16-3.51 [facility] Comment on above: Performed By: #### P SD, SIMFXB, PSE #### [facility] (DEFAULT) [address] [address] Lymphocytes/100 WBC (Bld) 25.6 % Normal [facility] Comment on above: Performed By: #### P SD, SIMFXB, PSE #### [facility] (DEFAULT) [address] [address] MCV (RBC) [Entitic vol] 86.9 fL Normal 79.6-97.7 [facility] Comment on above: Performed By: #### P SD, SIMFXB, PSE #### [facility] (DEFAULT) [address] [address] Mean Cell Hgb 28.0 pg Normal 25.9-33.9 [facility] Comment on above: Performed By: #### P SD, SIMFXB, PSE #### [facility] (DEFAULT) [address] [address] Mean Cell Hgb Conc 32.2 g/dL Normal 31.4-35.9 [facility] Comment on above: Performed By: #### P SD, SIMFXB, PSE #### [facility] (DEFAULT) [address] [place] [address] 73560 Monocytes (Bld) [#/Vol] 0.66 10*3/uL Normal 0.22-0.87 [facility] Comment on above: Performed By: #### P SD, SIMFXB, PSE #### [facility] (DEFAULT) [address] [place] [address] 94333 Monocytes/100 WBC (Bld) 8.1 % Normal [facility] Comment on above: Performed By: #### P SD, SIMFXB, PSE #### [facility] (DEFAULT) [address] [address] Nucleated RBC 0.0 /100 WBC Normal <=0.2 [facility] Comment on above: Performed By: #### P SD, SIMFXB, PSE #### [facility] (DEFAULT) [address] [place] [address] 79752 Platelet mean volume (Bld) [Entitic vol] 9.7 fL Normal 8.5-12.2 [facility] Comment on above: Performed By: #### P SD, SIMFXB, PSE #### [facility] (DEFAULT) [address] [place] [address] 13087 Platelets (Bld) [#/Vol] 318 10*3/uL Normal 150-393 [facility] Comment on above: Performed By: #### P SD, SIMFXB, PSE #### [facility] (DEFAULT) [address] [place] [address] 53116 RBC (Bld) [#/Vol] 4.82 10*6/uL Normal 3.91-5.04 [facility] [facility] Comment on above: Performed By: #### P SD, SIMFXB, PSE #### [facility] (DEFAULT) [address] [place] [address] 04131 RBC Distribution 14.2 % Normal 10.8-14.9 [place] [facility] Comment on above: Performed By: #### P SD, SIMFXB, PSE #### [facility] (DEFAULT) [address] [place] [address] 24147 Segs + Bands Auto 63.2 % Normal [facility] Comment on above: Performed By: #### P SD, SIMFXB, PSE #### [facility] (DEFAULT) [address] [place] [address] 54682 Segs + Bands,Absolute Auto 5.11 K/uL Normal 1.64-7.28 [facility] Comment on above: Performed By: #### P SD, SIMFXB, PSE #### [facility] (DEFAULT) [address] [place] [address] 96682 WBC (Bld) [#/Vol] 8.10 10*3/uL Normal 3.99-11.19 [facility] Comment on above: Performed By: #### P SD, SIMFXB, PSE #### [facility] (DEFAULT) [address] [place] [address] 38287 CHROMOGRANIN Aon 11-06-2023 Chromogranin A 30 ng/mL Normal <93 [facility] Comment on above: Result Comment: ADDITIONAL INFORMATION The testing method is a homogeneous time-resolved immunofluorescent assay manufactured by [employer] and performed on the [employer] Kryptor Compact Plus. Values obtained with different [...] examination and other findings. Test Performed by: [facility] [address] [place] [address] Plumbing Instructor: Ed Russo M.D. Ph.D.; CLIA# [id number] Performed By: #### F ERIB, TSH #### [facility] (DEFAULT) [address] [place] [address] 38439 COMPREHENSIVE METABOLIC PANE Shamir 11-06-2023 Albumin [Mass/Vol] 4.6 g/dL Normal 3.5-5.0 [facility] Comment on above: Performed By: #### F ERIB, TSH #### [facility] (DEFAULT) [address] [place] [address] 91454 ALP [Catalytic activity/Vol] 75 U/L Normal 32-126 [facility] Comment on above: Performed By: #### F ERIB, TSH #### [facility] (DEFAULT) [address] [place] [address] 91943 ALT [Catalytic activity/Vol] 66 U/L High 9-48 [facility] Comment on above: Performed By: #### F ERIB, TSH #### [facility] (DEFAULT) [address] [place] [address] 34707 Anion gap [Moles/Vol] 13 mmol/L Normal 7-17 [facility] Comment on above: Performed By: #### F ERIB, TSH #### [facility] (DEFAULT) [address] [place] [address] 11261 AST [Catalytic activity/Vol] 40 U/L High 10-39 [facility] Comment on above: Performed By: #### F ERIB, TSH #### [facility] (DEFAULT) [address] [place] [address] 79534 Bilirubin [Mass/Vol] 0.3 mg/dL Normal <1.5 [facility] Comment on above: Performed By: #### F ERIB, TSH #### [facility] (DEFAULT) [address] [place] [address] 28688 Calcium [Mass/Vol] 9.7 mg/dL Normal 8.6-10.5 [facility] Comment on above: Performed By: #### F ERIB, TSH #### [facility] (DEFAULT) [address] [place] [address] 11950 Chloride [Moles/Vol] 104 mmol/L Normal 98-108 [facility] Comment on above: Performed By: #### F ERIB, TSH #### [facility] (DEFAULT) [address] [place] [address] 73381 CO2 [Moles/Vol] 30 mmol/L Normal 21-31 [facility] Comment on above: Performed By: #### F ERIB, TSH #### [facility] (DEFAULT) [address] [place] [address] 07985 Creatinine [Mass/Vol] 0.61 mg/dL Normal 0.50-1.20 [facility] Comment on above: Performed By: #### F ERIB, TSH #### [facility] (DEFAULT) [address] [place] [address] 95394 eGFR, CKD-EPI, Female > Normal >=60 [facility] Comment on above: Result Comment: Repo rted eGFR is based on the CKD-EPI 2020 equation using creatinine, age, and sex. Performed By: #### F ERIB, TSH #### [facility] (DEFAULT) [address] [place] [address] 86208 Glucose [Mass/Vol] 62 mg/dL Low 70-99 [facility] Comment on above: Performed By: #### F ERIB, TSH #### [facility] (DEFAULT) [address] [place] [address] 19444 Osmolality [Osmolality] 293 mosm/kg Normal 278-305 [facility] Comment on above: Performed By: #### F ERIB, TSH #### [facility] (DEFAULT) [address] [place] [address] 92157 Potassium [Moles/Vol] 3.9 mmol/L Normal 3.5-5.0 [facility] Comment on above: Performed By: #### F ERIB, TSH #### [facility] (DEFAULT) [address] [place] [address] 48195 Protein [Mass/Vol] 7.3 g/dL Normal 6.4-8.3 [facility] Comment on above: Performed By: #### F ERIB, TSH #### [facility] (DEFAULT) [address] [place] [address] 88690 Sodium [Moles/Vol] 143 mmol/L Normal 135-145 [facility] Comment on above: Performed By: #### F ERIB, TSH #### [facility] (DEFAULT) [address] [place] [address] 33082 Urea nitrogen [Mass/Vol] 6 mg/dL Low 7-25 [facility] Comment on above: Performed By: #### F ERIB, TSH #### [facility] (DEFAULT) [address] [place] [address] 16934 Urea nitrogen/Creatinine [Mass ratio] 10 mg/mg Normal [facility] Comment on above: Performed By: #### F ERIB, TSH #### [facility] (DEFAULT) [address] [place] [address] 73656 LACTATE DEHYDROGENASEon 04-2 -2023 LD Total 161 U/L Normal 100-190 [facility] Comment on above: Performed By: #### F ERIB, TSH #### [facility] (DEFAULT) [address] [place] [address] 85630 Shamir 09-25-2023 L Specimen: [id number] Received: 09/27/23 Status: MARIANNA Mosqueda Num: [id number] Spec Type: Surgical Subm Dr: Ron Ruano Tissues: A Placenta - 3rd Trimester (Greater than 28 weeks) (PLACENTA) Procedures: HE/3, Gross/Micro L5 Age/ Patient Sex Location Account Attending Physician Zainab Mcclure 28/F LABELL [id number] Ron Ruano SPEC NUM: [id number] RECD: 09/27/23 STATUS: MARIANNA MOSQUEDA NUM: [id number] AUSTEN: 09/25/[address]: Ron Ruano ENTERED: 09/27/23-[address] [facility] DR: [place],Lab SPEC TYPE: Surgical DEPT: CARL [...] Zainab Swift per requisition, Zainab Mcclure in [facility], same Gross Description Received in formalin labeled [...] of the cut surface of the placenta. Rubble Placer sections are submitted in 3 cassettes as follows: A1 - cord and central disc -------- Specimen: [id number] Received: 09/27/23 Status: MARIANNA Mosqueda Num: [id number] Spec Type: Surgical Subm Dr: Ron Ruano Tissues: A Placenta - 3rd Trimester (Greater than 28 weeks) (PLACENTA) Procedures: HE/3, Gross/Micro L5 -------- Patient: Zainab Mcclure [id number] (Continued) -------- Specimen: [id number] Received: 09/27/23 (Continued) Gross Description (Continued) Signed (signature on file) Hawk Stevens MD 09/28/232017 -------- Specimen: [id number] Received: 09/27/23 Status: MARIANNA Mosqueda Num: [id number] Spec Type: Surgical Subm Dr: Ron Ruano Tissues: A Placenta - 3rd Trimester (Greater than 28 weeks) (PLACENTA) Procedures: Pedro WATT/Zack L5 -------- Patient: Zainab Mcclure [id number] (Continued) -------- Specimen: [id number] Received: 09/27/23 (Continued) Gross Description (Continued) A2 - membranes and marginal disc A3 - Superficial lesion CPT Codes 10013 -------- -------- Specimen: [id number] Received: 09/27/23 Status: MARIANNA Mosqueda Num: [id number] Spec Type: Surgical Subm Dr: Ron Ruano Tissues: A Placenta - 3rd Trimester (Greater than 28 weeks) (PLACENTA) Procedures: HE/3, Gross/Micro L5 -------- Patient: Zainab Mcclure [id number] (Continued) -------- Signed (signature on file) Hawk Stevens MD 09/28/232017 Normal [facility] MRI ABDOMEN/PELVIS WITHOUT C ONTRASTon [...] is not well visualized on this exam. [facility] Radiology Study observation (narrative) [facility] MRI ABDOMEN/PELVIS WITHOUT C ONTRASTOrdered By: Mandi Montiel on 03-11-2023 [facility] Work Phone: CT Chest W contrast Jason [...] I have reviewed and approved this report. [facility] CT Chest W contrast IVOrdere d By: Benjamin Santos [facility] 10-23-20[facility] Jason Radiology Study observation (narrative) [facility] CT Neck W contrast Jason 04-0 IMPRESSION: [...] for mass or adenopathy in the neck. [facility] Radiology Study observation (narrative) [facility] CT Neck W contrast IVOrdered By: Miguel Espinal on 10-22-2022 [facility] Work Phone: Cardiac echo study Procedure Ordered By: Guerrero Carvalho on 10-22-2022 Ao peak raj 1.26 m/s [facility] Work Phone: Ao VTI 19.98 cm [facility] Work Phone: Ascending aorta 2.62 [facility]: AV LVOT peak gradient 3 mmHg [facility] Work Phone: AV mean gradient 3 mmHg [facility] Work Phone: AV peak gradient 6 mmHG [facility] Work Phone: AV valve area 2.24 cm2 [facility] Work Phone: AV Velocity Ratio 0.70 [facility] Work Phone: FRANK (continuity Vmax) 1.82 cm2 [facility] Work Phone: FRANK (continuity VTI) 2.24 cm2 [facility] Work Phone: FRANK index (continuity Vmax) 1.06 m/s [facility] Work Phone: FRANK index (continuity VTI) 1.30 cm2/m2 [facility] Work Phone: Avg e' pk raj 0.15 m/s [facility] Work Phone: Avg E/e' ratio 4.89 [facility] Work Phone: Body surface area Derived from formula 1.72 m2 [facility] Work Phone: BP EF 62 % [facility] Work Phone: DI (Vmax) 0.70 [facility] Work Phone: DI (VTI) 0.86 m/2 [facility] Work Phone: E wave decelartion time 217.58 msec [facility] Work Phone: e' lateral pk raj 0.1597 [facility]: [facility]' [facility] pk [facility]j 0.16 [facility]: e' septal pk raj 0.1401 m/s [facility] Work Phone: e' septal pk raj 0.14 m/s [facility] Work Phone: E/A ratio 0.74 [facility] Work Phone: E[facility]e' lateral [facility].57 [facility]: E/e' septal [facility] 5.21 [facility]: EF SP 2CH 64 [facility] Work Phone: EF SP 4CH 59 [facility] Work Phone: FS 33 % 28 - 44 % [facility] Work Phone: IVC ostium 1.46 cm [facility] Work Phone: IVS 0.61 cm [facility] Work Phone: LA AREA 2CH 13.72 cm2 [facility] Work Phone: LA area 4CH 9.33 cm2 [facility] Work Phone: LA ESV BP (MOD) [address] [facility] Work Phone: LA ESV BP (MOD) index 17 mL/m2 [facility] Work Phone: LA ESV SP 2CH (MOD) 37 mL [facility] Work Phone: LA ESV SP 4CH (MOD) 19 mL [facility] Work Phone: Long Strain -21.7 % [facility] Work Phone: LV EDV BP 71 mL [facility] Work Phone: LV EDV SP 2CH 76 mL [facility] Work Phone: LV EDV SP 4CH 61 mL [facility] Work Phone: LV ESV BP 27 mL [facility] Work Phone: LV ESV SP 2CH 27 mL [facility] Work Phone: LV ESV SP 4CH 25 mL [facility] Work Phone: LV mass 68.53 g [facility] Work Phone: LV Mass Index 39.8 g/m2 [facility] Work Phone: LV RWT 0.30 [facility] Work Phone: LV stroke volume BP (ml) 44 mL [facility] Work Phone: LV stroke volume index BP 25.58 mL/m2 [facility] Work Phone: LVIDD 4.10 cm [facility] Work Phone: LVIDS 2.73 cm [facility] Work Phone: LVOT area 2.60 cm2 [facility] Work Phone: LVOT diameter 1.82 cm [facility] Work Phone: LVOT peak raj 0.88 m/s [facility] Work Phone: LVOT peak VTI 17.19 cm [facility] Work Phone: LVOT stroke volume 45 cm3 [facility] Work [facility]: LVOT stroke volume index 25.99 ml/m2 [facility] Work Phone: MV pk A raj 0.98 m/s [facility] Work Phone: MV pk E raj 0.73 m/s [facility] Work Phone: MV stenosis pressure 1/2 time 63.10 ms [facility] Work Phone: MV valve area p 1/2 method 3.49 cm2 [facility] Work Phone: OSU AV VTI RATIO PRE STRESS 0.86 [facility] Work Phone: OSU ECHO LV BIPLANE SYSTOLIC VOLUME INDEX 15.70 mL/m2 [facility] Work Phone: OSU ECHO LV BP DIASTOLIC VOLUME INDEX 41.28 mL/m2 [facility] Work Phone: PV peak gradient 4 mmHg [facility] Work Phone: PV PK RAJ 0.97 m/s [facility] Work Phone: PW 0.61 cm [facility] Work Phone: RA vol index 4CH (MOD) 12.79 mL/m2 [facility] Work Phone: Right atrium volume 4 chamber method of disks 22 mL [facility] Work Phone: RV Area diastolic 21.85 cm2 [facility] Work Phone: RV Area systolic 11.51 cm2 [facility] Work Phone: RV basal diam 3.02 cm [facility] Work Phone: RV Fractional area change 47.3 % [facility] Work Phone: RV long diam 7.35 cm [facility] Work Phone: RV Long Strain -28.0 % [facility] Work Phone: RV mid diam 2.68 cm [facility] Work Phone: RV S' 12.55 cm/s [facility] Work Phone: RVOT peak gradient [address] [facility] Work Phone: RVOT peak raj 0.59 m/s [facility] Work Phone: Sinus 2.70 cm [facility] Work Phone: STJ 2.41 cm [facility] Work Phone: Stroke Volume 45 cm/mL [facility] Work Phone: Stroke volume index 26 [facility] Work Phone: TAPSE 2.03 cm [facility] Work Phone: [facility] Work Phone: Cardiac echo study Procedure on [...] The left ventricular wall motion is normal. [facility] Radiology Study observation (narrative) [facility] B-TYPE NATRIURETIC PEPTIDE ( BRAIN)on 10-07-2022 Interpretation and review of laboratory results Normal [facility] Natriuretic peptide B (Bld) [Mass/Vol] 4 pg/mL 0 - 100 pg/mL [facility] HIGH SENSITIVITY TROPONIN I - SINGLE ORDERon 10-07-2022 Interpretation and review of laboratory results Normal [facility] Troponin I.cardiac High sensitivity method [Mass/Vol] ng/L NINF - 34 ng/L [facility] MONOon 10-02-2022 Monocytes (Bld) [#/Vol] Negative Normal NEGATIVE [facility] Comment on above: Performed By: #### L IVER, LDH, BMP #### [facility] [address] [place] [address] Dr. Esthela Stevens CBC AUTO DIFFon 09-30-2022 BASO # 0.1 103/ul Normal 0.0-0.1 [facility] Comment on above: Performed By: #### L IVER, LDH, BMP #### [facility] [address] [place] [address] Dr. Esthela Stevens Basophils/100 WBC (Bld) 0.8 % Normal 0.2-2.0 [facility] Comment on above: Performed By: #### L IVER, LDH, BMP #### [facility] [address] [place] [address] Dr. Esthela Stevens EO # 0.1 103/ul Normal 0.0-0.7 [facility] Comment on above: Performed By: #### L IVER, LDH, BMP #### [facility] [address] [place] [address] Dr. Esthela Stevens Eosinophils/100 WBC (Bld) 1.7 % Normal 0.9-7.0 [facility] Comment on above: Performed By: #### L IVER, LDH, BMP #### [facility] [address] [place] [address] Dr. Esthela Stevens Erythrocyte distribution width (RBC) [Ratio] 13.1 % Normal 11.0-15.0 [facility] Comment on above: Performed By: #### L IVER, LDH, BMP #### [facility] [address] [place] [address] Dr. Esthela Stevens Hematocrit (Bld) [Volume fraction] 38.4 % Normal 36.0-48.0 [facility] Comment on above: Performed By: #### L IVER, LDH, BMP #### [facility] [address] [place], [place] [id number] Dr. Esthela Stevens Hemoglobin (Bld) [Mass/Vol] 12.4 g/dL Normal 12.0-16.0 [facility] Comment on above: Performed By: #### L IVER, LDH, BMP #### [facility] [address] [place] [address] Dr. Esthela Stevens IG # 0.02 10e3/ul Normal 0.00-0.03 [facility] Comment on above: Performed By: #### L IVER, LDH, BMP #### [facility] [address] [place] [address] Dr. Esthela Stevens IG % 0.3 % Normal 0.0-0.5 [facility] Comment on above: Performed By: #### L IVER, LDH, BMP #### [facility] [address] [place] [address] Dr. Esthela Stevens LYMPH # 2.2 103/ul Normal 1.2-3.8 [facility] Comment on above: Performed By: #### L IVER, LDH, BMP #### [facility] [address] [place] [address] Dr. Esthela Stevens Lymphocytes/100 WBC (Bld) 32.8 % Normal 20.5-60.0 [facility] Comment on above: Performed By: #### L IVER, LDH, BMP #### [facility] [address] [place] [address] Dr. Esthela Stevens MANUAL DIFF REQ NO Normal [facility] Comment on above: Performed By: #### L IVER, LDH, BMP #### [facility] [address] [place] [address] Dr. Esthela Stevens MCH (RBC) [Entitic mass] 27.1 pg Normal 26.7-34.0 [facility] Comment on above: Performed By: #### L IVER, LDH, BMP #### [facility] [address] [place] [address] Dr. Esthela Stevens MCHC (RBC) [Mass/Vol] 32.3 g/dL Normal 29.9-35.2 [facility] Comment on above: Performed By: #### L IVER, LDH, BMP #### [facility] [address] [place] [address] Dr. Esthela Stevens MCV (RBC) [Entitic vol] 83.8 fL Normal 81.0-99.0 [facility] Comment on above: Performed By: #### L IVER, LDH, BMP #### [facility] [address] [place] [address] Dr. Esthela Stevens MONO # 0.5 103/ul Normal 0.3-0.8 [facility] Comment on above: Performed By: #### L IVER, LDH, BMP #### [facility] [address] [place] [address] Dr. Esthela Stevens Monocytes/100 WBC (Bld) 8.0 % Normal 1.7-12.0 [facility] Comment on above: Performed By: #### L IVER, LDH, BMP #### [facility] [address] [place] [address] Dr. Esthela Stevens NEUT # 3.7 103/ul Normal 1.4-6.5 [facility] Comment on above: Performed By: #### L IVER, LDH, BMP #### [facility] [address] [place] [address] Dr. Esthela Stevens Neutrophils/100 WBC (Bld) 56.4 % Normal 43.0-75.0 [facility] Comment on above: Performed By: #### L IVER, LDH, BMP #### [facility] [address] [place] [address] Dr. Esthela Stevens Platelet mean volume (Bld) [Entitic vol] 9.3 fL Critically low 9.5-13.5 [facility] Comment on above: Performed By: #### L IVER, LDH, BMP #### [facility] [address] [place] [address] Dr. Esthela Stevens PLT 334 103/ul Normal 150-450 [facility] Comment on above: Performed By: #### L IVER, LDH, BMP #### [facility] [address] [place] [address] Dr. Esthela Stevens RBC 4.58 106/ul Normal 4.20-5.40 [facility] Comment on above: Performed By: #### L IVER, LDH, BMP #### [facility] [address] [place] [address] Dr. Esthela Stevens WBC 6.6 103/ul Normal 4.0-11.0 [facility] Comment on above: Performed By: #### L IVER, LDH, BMP #### [facility] [address] [place] [address] Dr. Esthela Stevens LDHon 09-30-2022 LDH 122 U/L Normal 81-234 [facility] Comment on above: Performed By: #### L IVER, LDH, BMP #### [facility] [address] [place] [address] Dr. Esthela Stevens LIVER PROFILEon 09-30-2022 Albumin [Mass/Vol] 4.1 g/dL Normal 3.4-5.0 [facility] Comment on above: Performed By: #### L IVER, LDH, BMP #### [facility] [address] [place] [address] Dr. Esthela Stevens Albumin/Globulin [Mass ratio] 1.2 {ratio} Normal [facility] Comment on above: Performed By: #### L IVER, LDH, BMP #### [facility] [address] [place] [address] Dr. Esthela Stevens ALP [Catalytic activity/Vol] 75 U/L Normal 46-116 [facility] Comment on above: Performed By: #### L IVER, LDH, BMP #### [facility] [address] [place] [address] Dr. Esthela Stevens ALT [Catalytic activity/Vol] 41 U/L Normal 14-59 [facility] Comment on above: Performed By: #### L IVER, LDH, BMP #### [facility] [address] [place] [address] Dr. Esthela Stevens AST [Catalytic activity/Vol] 30 U/L Normal 15-37 [facility] Comment on above: Performed By: #### L IVER, LDH, BMP #### [facility] [address] [place] [address] Dr. Esthela Stevens BILI, CONJUGATED 0.1 mg/dL Normal 0.0-0.2 [facility] Comment on above: Performed By: #### L IVER, LDH, BMP #### [facility] [address] [place] [address] Dr. Esthela Stevens Bilirubin [Mass/Vol] 0.5 mg/dL Normal 0.2-1.0 [facility] Comment on above: Performed By: #### L IVER, LDH, BMP #### [facility] [address] [place] [address] Dr. Esthela Stevens Globulin (S) [Mass/Vol] 3.3 g/dL Normal [facility] Comment on above: Performed By: #### L IVER, LDH, BMP #### [facility] [address] [place] [address] Dr. Esthela Stevens Protein [Mass/Vol] 7.4 g/dL Normal 6.4-8.2 [facility] Comment on above: Performed By: #### L IVER, LDH, BMP #### [facility] [address] [place] [address] Dr. Esthela Stevens PROF CHEM 8 (BAS METB)on Anion gap [Moles/Vol] 9.2 mmol/L Normal [facility] Comment on above: Performed By: #### L IVER, LDH, BMP #### [facility] [address] [place] [address] Dr. Esthela Stevens Calcium [Mass/Vol] 9.0 mg/dL Normal 8.5-10.1 [facility] Comment on above: Performed By: #### L IVER, LDH, BMP #### [facility] [address] [place] [address] Dr. Esthela Stevens Chloride [Moles/Vol] 102 mmol/L Normal 98-107 [facility] Comment on above: Performed By: #### L IVER, LDH, BMP #### [facility] [address] [place] [address] Dr. Esthela Stevens CO2 [Moles/Vol] 27.8 mmol/L Normal 21.0-32.0 [facility] Comment on above: Performed By: #### L IVER, LDH, BMP #### [facility] [address] [address] [address] Esthela Stevens Creatinine [Mass/Vol] 0.63 mg/dL Normal 0.55-1.02 [facility] Comment on above: Performed By: #### L IVER, LDH, BMP #### [facility] [address] [address] [address] Esthela Stevens EGFR-AF LIBYAN >60 Normal >=60 [facility] Comment on above: Performed By: #### L IVER, LDH, BMP #### [facility] [address] [address] [address] Esthela Stevens EGFR-NON AF LIBYAN >60 Normal >=60 [facility] Comment on above: Performed By: #### L IVER, LDH, BMP #### [facility] [address] [address] [address] Esthela Stevens Glucose [Mass/Vol] 106 mg/dL Normal 74-106 [facility] Comment on above: Performed By: #### L IVER, LDH, BMP #### [facility] [address] [address] [address] Esthela Stevens Potassium [Moles/Vol] 4.0 mmol/L Normal 3.5-5.1 [facility] Comment on above: Performed By: #### L IVER, LDH, BMP #### [facility] [address] [address] [address] Esthela Stevens Sodium [Moles/Vol] 135 mmol/L Critically low 136-145 [facility] Comment on above: Performed By: #### L IVER, LDH, BMP #### [facility] [address] [address] [address] Esthela Stevens Urea nitrogen [Mass/Vol] 9.0 mg/dL Normal 7.0-18.0 [facility] Comment on above: Performed By: #### L IVER, LDH, BMP #### [facility] [address] [place], [place] [address] Dr. Esthela Stevens Urea nitrogen/Creatinine [Mass ratio] 14.3 mg/mg Normal [facility] Comment on above: Performed By: #### L IVER, LDH, BMP #### [facility] [address] [place], [place] [address] Dr. Esthela Stevens MG MAMM DIAGNOSTIC 3D EFREN CA Don 09-23-2022 MG MAMM DIAGNOSTIC 3D EFREN CAD Patient: ZAINAB SWIFT Exam Date: 09/23/2022 : 1995 Gender:F Ordering : ERIN SAMS [facility] Admission #: [id number] Family : Order #: [id number] CLICK HERE TO VIEW EXAM RADIOLOGY REPORT [...] cervical cancer at age 42. LOCATION: [facility] BREAST COMPOSITION: Extremely dense, which lowers [...] M.D. on 09/23/2022 at 11:31 Normal [facility] US BREAST EFREN LIMITEDon 03-0 US BREAST EFREN LIMITED Patient: ZAINAB SWIFT Exam Date: 09/23/2022 : 1995 Gender:F Ordering : ERIN SAMS [facility] Admission #: [id number] Family : Order #: [id number] CLICK HERE TO VIEW EXAM RADIOLOGY REPORT PROCEDURE: MAMMOGRAM DIAGNOSTIC 3D BILATERAL CAD, 09/23/2022, 09:21 ULTRASOUND BREAST BILATERAL LIMITED, 09/23/2022, 08:25 COMPARISON: None. INDICATIONS: Breast lump Calculator Name [facility] Breast Cancer Risk Assessment Tool 5 Year [...] cervical cancer at age 42. LOCATION: [facility] BREAST COMPOSITION: Extremely dense, which lowers [...] M.D. on 09/23/2022 at 11:31 Normal [facility] Covid-19 PCR (CVDTBH)on 08-20 SARS-CoV-2 (COVID-19) RNA JORGE LUIS+probe Ql (Unsp spec) Not detected Normal NOT DETECTED [facility] Comment on above: Result Comment: When [...] for this test is supported by the Mental Health Associate of Health and Human Service's declaration that [...] used). Performed By: #### P REG #### [facility] [address] [place] [address] Dr. Esthela Stevens INFLUENZA A AND B [facility] 09-15 [facility] SEE BELOW Normal [facility] Comment on above: Result Comment: Nega tive for Flu A protein angiten. Infection due to Flu A cannot be ruled out. Flu A angiten in the sample may be below the detection limit of the test. Performed By: #### L IVER, LDH, BMP #### [facility] [address] [place] [address] Dr. Esthel[facility] Normal [facility] Comment on above: Result Comment: Nega tive for Flu B protein antigen. Infection due to Flu B cannot be ruled out. Flu B antigen in the sample may be below the detection limit of the test. Performed By: #### L IVER, LDH, BMP #### [facility] [address] [place] [address] Dr. Esthela Stevens INFLUENZA A AG Negative Normal NEGATIVE SEE COMMENT [facility] Comment on above: Performed By: #### L IVER, LDH, BMP #### [facility] [address] [place] [address] Dr. Esthela Stevens INFLUENZA B AG Negative Normal NEGATIVE SEE COMMENT [facility] Comment on above: Performed By: #### L IVER, LDH, BMP #### [facility] [address] [place] [address] Dr. Esthela Stevens HUNTER by IFAon 09-04-2022 Antinuclear Antibodies, IFA Positive Abnormal [facility] Comment on above: Result Comment: Nega tive <1:80 Borderline 1:80 Positive >1:80 Performed By: #### P REG #### [facility] [address] [address] [address] Esthela Stevens Centriole Pattern Normal [facility] Comment on above: Performed By: #### P REG #### [facility] [address] [address] [address] Esthela Stevens Centromere Pattern Normal [facility] Comment on above: Performed By: #### P REG #### [facility] [address] [address] [address] Esthela Stevens Homogeneous Pattern 1:160 Critically high [facility] Comment on above: Result Comment: ICAP nomenclature: AC-1 Performed By: #### P REG #### [facility] [address] [address] [address] Esthela Stevens Midbody Pattern Normal [facility] Comment on above: Performed By: #### P REG #### [facility] [address] [address] [address] Esthela Stevens Note: Comment Normal [facility] Comment on above: Result Comment: For [...] titers Nucleosomes, Histones Drug-induced SLE Speckled Sm, FILM PROCESSING SHIFT SUPERVISOR, SCL-70, SLE,MCTD,PSS (diffuse form), SS-A/SS-B Sjogrens Nucleolar SCL-70, PM-1/SCL High titers Scleroderma, PM/DM Centromere Centromere PSS (limited form) w/Crest syndrome variable Nuclear Dot [id number] Primary Biliary Cirrhosis Nuclear GP210, Primary Biliary Cirrhosis Membrane italia A,B,C Performed By: #### P REG #### [facility] [address] [place] [address] Dr. Esthela Stevens Nuclear Dot Pattern Normal [facility] Comment on above: Performed By: #### P REG #### [facility] [address] [place] [address] Dr. Esthela Stevens Nuclear Membrane Pattern Normal [facility] Comment on above: Performed By: #### P REG #### [facility] [address] [place] [address] Dr. Esthela Stevens Nucleolar Pattern Normal [facility] Comment on above: Performed By: #### P REG #### [facility] [address] [place] [address] Dr. Esthela Stevens PCNA Pattern Normal [facility] Comment on above: Performed By: #### P REG #### [facility] [address] [place] [address] Dr. Esthela Stevens Speckled Pattern Normal [facility] Comment on above: Performed By: #### P REG #### [facility] [address] [place] [address] Dr. Esthela Stevens Spindle Apparatus Pattern Normal [facility] Comment on above: Performed By: #### P REG #### [facility] [address] [place] [address] Dr. Esthela Stevens ANTISTREPTOLYSIN O AB (ASO)o n 09-01-2022 Antistreptolysin O Ab 58.8 IU/mL Normal 0.0-200.0 [facility] Comment on above: Performed By: #### L IVER, LDH, BMP #### [facility] [address] [place] [address] Dr. Esthela Stevens INSULINon 09-01-2022 Insulin 12.2 uIU/mL Normal 2.6-24.9 [facility] Comment on above: Performed By: #### I NSULIN #### [facility] [address] [place] [address] Dr. Esthela Stevens RHEUMATOID FACTORon 09-01-19 23 RA Latex Turbid. <10.0 Normal <14.0 [facility] Comment on above: Performed By: #### L IVER, LDH, BMP #### [facility] [address] [place] [address] Dr. Esthela Stevens CBC AUTO DIFFon 08-31-2022 BASO # 0.0 103/ul Normal 0.0-0.1 [facility] Comment on above: Performed By: #### P REG #### [facility] [address] [place] [address] Dr. Esthela Stevens Basophils/100 WBC (Bld) 0.6 % Normal 0.2-2.0 [facility] Comment on above: Performed By: #### P REG #### [facility] [address] [place] [address] Dr. Esthela Stevens EO # 0.1 103/ul Normal 0.0-0.7 [facility] Comment on above: Performed By: #### P REG #### [facility] [address] [place] [address] Dr. Esthela Stevens Eosinophils/100 WBC (Bld) 1.5 % Normal 0.9-7.0 [facility] Comment on above: Performed By: #### P REG #### [facility] [address] [place] [address] Dr. Esthela Stevens Erythrocyte distribution width (RBC) [Ratio] 12.7 % Normal 11.0-15.0 [facility] Comment on above: Performed By: #### P REG #### [facility] [address] [place] [address] Dr. Esthela Stevens Hematocrit (Bld) [Volume fraction] 38.4 % Normal 36.0-48.0 [facility] Comment on above: Performed By: #### P REG #### [facility] [address] [place] [address] Dr. Esthela Stevens Hemoglobin (Bld) [Mass/Vol] 12.7 g/dL Normal 12.0-16.0 [facility] Comment on above: Performed By: #### P REG #### [facility] [address] [place] [address] Dr. Esthela Stevens IG # 0.02 10e3/ul Normal 0.00-0.03 [facility] Comment on above: Performed By: #### P REG #### [facility] [address] [place] [address] Dr. Esthela Stevens IG % 0.3 % Normal 0.0-0.5 [facility] Comment on above: Performed By: #### P REG #### [facility] [address] [address] [address] Esthela Stevens LYMPH # 2.0 103/ul Normal 1.2-3.8 [facility] Comment on above: Performed By: #### P REG #### [facility] [address] [place] [address] Dr. Esthela Stevens Lymphocytes/100 WBC (Bld) 31.2 % Normal 20.5-60.0 [facility] Comment on above: Performed By: #### P REG #### [facility] [address] [place] [address] Dr. Esthela Stevens MANUAL DIFF REQ NO Normal [facility] Comment on above: Performed By: #### P REG #### [facility] [address] [place] [address] Dr. Esthela Stevens MCH (RBC) [Entitic mass] 27.1 pg Normal 26.7-34.0 [facility] Comment on above: Performed By: #### P REG #### [facility] [address] [place] [address] Dr. Esthela Stevens MCHC (RBC) [Mass/Vol] 33.1 g/dL Normal 29.9-35.2 [facility] Comment on above: Performed By: #### P REG #### [facility] [address] [place] [address] Dr. Esthela Stevens MCV (RBC) [Entitic vol] 82.1 fL Normal 81.0-99.0 [facility] Comment on above: Performed By: #### P REG #### [facility] [address] [place] [address] Dr. Esthela Stevens MONO # 0.4 103/ul Normal 0.3-0.8 [facility] Comment on above: Performed By: #### P REG #### [facility] [address] [place] [address] Dr. Esthela Stevens Monocytes/100 WBC (Bld) 6.4 % Normal 1.7-12.0 [facility] Comment on above: Performed By: #### P REG #### [facility] [address] [address] [address] Esthela Stevens NEUT # 3.9 103/ul Normal 1.4-6.5 [facility] Comment on above: Performed By: #### P REG #### [facility] [address] [place] [address] Dr. Esthela Stevens Neutrophils/100 WBC (Bld) 60.0 % Normal 43.0-75.0 [facility] Comment on above: Performed By: #### P REG #### [facility] [address] [place] [address] Dr. Esthela Stevens Platelet mean volume (Bld) [Entitic vol] 9.2 fL Critically low 9.5-13.5 [facility] Comment on above: Performed By: #### P REG #### [facility] [address] [place] [address] Dr. Esthela Stevens PLT 390 103/ul Normal 150-450 [facility] Comment on above: Performed By: #### P REG #### [facility] [address] [place] [address] Dr. Esthela Stevens RBC 4.68 106/ul Normal 4.20-5.40 [facility] Comment on above: Performed By: #### P REG #### [facility] [address] [place] [address] Dr. Esthela Stevens WBC 6.5 103/ul Normal 4.0-11.0 [facility] Comment on above: Performed By: #### P REG #### [facility] [address] [place] [address] Dr. Esthela Stevens CRPon 08-31-2022 CRP [Mass/Vol] mg/L Normal <=1.0 [facility] Comment on above: Performed By: #### L IVER, LDH, BMP #### [facility] [address] [place] [address] Dr. Esthela Stevens FREE THYROXINE INDEX T7on FTI 2.94 Normal 1.30-4.50 [facility] Comment on above: Performed By: #### L IVER, LDH, BMP #### [facility] [address] [address] [address] Esthela Stevens T3U 33.0 % Normal 30.0-39.0 [facility] Comment on above: Performed By: #### L IVER, LDH, BMP #### [facility] [address] [address] [address] Esthela Stevens T4 [Mass/Vol] 8.90 ug/dL Normal 4.80-13.90 [facility] Comment on above: Performed By: #### L IVER, LDH, BMP #### [facility] [address] [address] [address] Esthela Stevens GLYCOHEMOGLOBIN A1Con 2022 ADA RECOMMENDATION SEE BELOW Normal [facility] Comment on above: Result Comment: ADA RECOMMENDED LIMIT 4.0 - 6.0 ADA THERAPEUTIC TARGET < 7.0 ACTION SUGGESTED > 7.0 Performed By: #### L IVER, LDH, BMP #### [facility] [address] [address] [address] Esthela Stevens Glucose [Mass/Vol] 111 mg/dL Normal [facility] Comment on above: Performed By: #### L IVER, LDH, BMP #### [facility] [address] [address] [address] Esthela Stevens HbA1c (Bld) [Mass fraction] 5.5 % Normal 4.5-6.2 [facility] Comment on above: Performed By: #### L IVER, LDH, BMP #### [facility] [address] [address] [address] Esthela Stevens IRONon 08-31-2022 Iron [Mass/Vol] 34.0 ug/dL Critically low 50.0-170.0 [facility] Comment on above: Performed By: #### L IVER, LDH, BMP #### [facility] [address] [place] [address] Dr. Esthela Stevens LIPID PROFILEon 08-31-2022 CHOL-HDL RATIO NORM SEE BELOW Normal [facility] Comment on above: Result Comment: 3.3 - 4.4 LOW RISK 4.4 - 7.1 AVERAGE RISK 7.1 - 11.0 MODERATE RISK >11.0 HIGH RISK Performed By: #### L IVER, LDH, BMP #### [facility] [address] [address] [address] Esthela Stevens Cholesterol [Mass/Vol] 168 mg/dL Normal <=200 [facility] Comment on above: Performed By: #### L IVER, LDH, BMP #### [facility] [address] [address] [address] Esthela Stevens Cholesterol in HDL [Mass/Vol] 51 mg/dL Normal 40-60 [facility] Comment on above: Performed By: #### L IVER, LDH, BMP #### [facility] [address] [address] [address] Esthela Stevens Cholesterol in LDL [Mass/Vol] 91.8 mg/dL Normal [facility] Comment on above: Performed By: #### L IVER, LDH, BMP #### [facility] [address] [place] [address] Dr. Esthela Stevens Cholesterol.total/Ch olesterol in HDL [Mass ratio] 3.3 {ratio} Normal [facility] Comment on above: Performed By: #### L IVER, LDH, BMP #### [facility] [address] [place] [address] Dr. Esthela Stevens HDL NORMAL > or = 60 mg/dl - LO W CARDIOVASCULAR RISK <40 mg/dl - HIGH CARDIOVASCULAR RISK Normal [facility] Comment on above: Performed By: #### L IVER, LDH, BMP #### [facility] [address] [place] [address] Dr. Esthela Stevens LDL CALC NORMAL SEE BELOW Normal [facility] Comment on above: Result Comment: <100 mg/dl OPTIMAL 100 - 129 mg/dl NEAR OR ABOVE OPTIMAL 130 - 159 mg/dl BORDERLINE HIGH 160 - 189 mg/dl HIGH >190 mg/dl VERY HIGH Performed By: #### L IVER, LDH, BMP #### [facility] [address] [place] [address] Dr. Esthela Stevens Triglyceride [Mass/Vol] 126 mg/dL Normal <=150 [facility] Comment on above: Performed By: #### L IVER, LDH, BMP #### [facility] [address] [address] [address] Esthela Stevens VLDL CALC 25.2 mg/dL Normal [facility] Comment on above: Performed By: #### L IVER, LDH, BMP #### [facility] [address] [address] [address] Esthela Stevens PROF 14(COMP METB)on 023 Albumin [Mass/Vol] 4.2 g/dL Normal 3.4-5.0 [facility] Comment on above: Performed By: #### L IVER, LDH, BMP #### [facility] [address] [place] [address] Dr. Esthela Stevens Albumin/Globulin [Mass ratio] 1.1 {ratio} Normal [facility] Comment on above: Performed By: #### L IVER, LDH, BMP #### [facility] [address] [place] [address] Dr. Esthela Stevens ALP [Catalytic activity/Vol] 74 U/L Normal 46-116 [facility] Comment on above: Performed By: #### L IVER, LDH, BMP #### [facility] [address] [place] [address] Dr. Esthela Stevens ALT [Catalytic activity/Vol] 57 U/L Normal 14-59 [facility] Comment on above: Performed By: #### L IVER, LDH, BMP #### [facility] [address] [place] [address] Dr. Esthela Stevens Anion gap [Moles/Vol] 15.0 mmol/L Normal [facility] Comment on above: Performed By: #### L IVER, LDH, BMP #### [facility] [address] [place] [address] Dr. Esthela Stevens AST [Catalytic activity/Vol] 25 U/L Normal 15-37 [facility] Comment on above: Performed By: #### L IVER, LDH, BMP #### [facility] [address] [place] [address] Dr. Esthela Stevens Bilirubin [Mass/Vol] 0.4 mg/dL Normal 0.2-1.0 [facility] Comment on above: Performed By: #### L IVER, LDH, BMP #### [facility] [address] [place] [address] Dr. Esthela Stevens Calcium [Mass/Vol] 9.4 mg/dL Normal 8.5-10.1 [facility] Comment on above: Performed By: #### L IVER, LDH, BMP #### [facility] [address] [place] [address] Dr. Esthela Stevens Chloride [Moles/Vol] 102 mmol/L Normal 98-107 [facility] Comment on above: Performed By: #### L IVER, LDH, BMP #### [facility] [address] [place] [address] Dr. Esthela Stevens CO2 [Moles/Vol] 27.0 mmol/L Normal 21.0-32.0 [facility] Comment on above: Performed By: #### L IVER, LDH, BMP #### [facility] [address] [place] [address] Dr. Esthela Stevens Creatinine [Mass/Vol] 0.61 mg/dL Normal 0.55-1.02 [facility] Comment on above: Performed By: #### L IVER, LDH, BMP #### [facility] [address] [place] [address] Dr. Esthela Stevens EGFR-AF LIBYAN >60 Normal >=60 [facility] Comment on above: Performed By: #### L IVER, LDH, BMP #### [facility] [address] [place] [address] Dr. Esthela Stevens EGFR-NON AF LIBYAN >60 Normal >=60 [facility] Comment on above: Performed By: #### L IVER, LDH, BMP #### [facility] [address] [place] [address] Dr. Esthela Stevens Globulin (S) [Mass/Vol] 3.7 g/dL Normal [facility] Comment on above: Performed By: #### L IVER, LDH, BMP #### [facility] [address] [place], [place] [id number] Dr. Esthela Stevens Glucose [Mass/Vol] 88 mg/dL Normal 74-106 [facility] Comment on above: Performed By: #### L IVER, LDH, BMP #### [facility] [address] [place] [address] Dr. Esthela Stevens Potassium [Moles/Vol] 4.0 mmol/L Normal 3.5-5.1 [facility] Comment on above: Performed By: #### L IVER, LDH, BMP #### [facility] [address] [place] [address] Dr. Esthela Stevens Protein [Mass/Vol] 7.9 g/dL Normal 6.4-8.2 [facility] Comment on above: Performed By: #### L IVER, LDH, BMP #### [facility] [address] [place] [address] Dr. Esthela Stevens Sodium [Moles/Vol] 140 mmol/L Normal 136-145 [facility] Comment on above: Performed By: #### L IVER, LDH, BMP #### [facility] [address] [place] [address] Dr. Esthela Stevens Urea nitrogen [Mass/Vol] 4.0 mg/dL Critically low 7.0-18.0 [facility] Comment on above: Performed By: #### L IVER, LDH, BMP #### [facility] [address] [place] [address] Dr. Esthela Stevens Urea nitrogen/Creatinine [Mass ratio] 6.6 mg/mg Normal [facility] Comment on above: Performed By: #### L IVER, LDH, BMP #### [facility] [address] [place] [address] Dr. Esthela Stevens TSHon 08-31-2022 TSH 1.348 uIU/mL Normal 0.358-3.740 [facility] Comment on above: Performed By: #### L IVER, LDH, BMP #### [facility] [address] [place] [address] Dr. Esthela Stevens URIC ACID SERUMon 08-31-2022 Urate [Mass/Vol] 4.4 mg/dL Normal 2.6-6.0 [facility] Comment on above: Performed By: #### L IVER, LDH, BMP #### [facility] [address] [place] [address] Dr. Esthela Stevens VITAMIN D 25 OHon 08-31-2022 VIT D 25-OH 18.0 ng/mL Normal [facility] Comment on above: Performed By: #### L IVER, LDH, BMP #### [facility] [address] [place] [address] Dr. Esthela Stevens VIT D RANGES SEE BELOW Normal [facility] Comment on above: Result Comment: <20 ng/mL Vit D deficient 20 - <30 ng/mL Vit D insufficient 30 - 100 ng/mL Vit D sufficient >100 ng/mL Potential Toxicity Performed By: #### L IVER, LDH, BMP #### [facility] [address] [place] [address] Dr. Esthela Stevens LIVER PROFILEon 08-24-2022 Albumin [Mass/Vol] 3.9 g/dL Normal 3.4-5.0 [facility] Comment on above: Performed By: #### L IVER, LDH, BMP #### [facility] [address] [place] [address] Dr. Esthela Stevens Albumin/Globulin [Mass ratio] 1.0 {ratio} Normal [facility] Comment on above: Performed By: #### L IVER, LDH, BMP #### [facility] [address] [place] [address] Dr. Esthela Stevens ALP [Catalytic activity/Vol] 70 U/L Normal 46-116 [facility] Comment on above: Performed By: #### L IVER, LDH, BMP #### [facility] [address] [place] [address] Dr. Esthela Stevens ALT [Catalytic activity/Vol] 44 U/L Normal 14-59 [facility] Comment on above: Performed By: #### L IVER, LDH, BMP #### [facility] [address] [place] [address] Dr. Esthela Stevens AST [Catalytic activity/Vol] 22 U/L Normal 15-37 [facility] Comment on above: Performed By: #### L IVER, LDH, BMP #### [facility] [address] [place] [address] Dr. Esthela Stevens BILI, CONJUGATED 0.1 mg/dL Normal 0.0-0.2 [facility] Comment on above: Performed By: #### L IVER, LDH, BMP #### [facility] [address] [place] [address] Dr. Esthela Stevens Bilirubin [Mass/Vol] 0.3 mg/dL Normal 0.2-1.0 [facility] Comment on above: Performed By: #### L IVER, LDH, BMP #### [facility] [address] [place] [address] Dr. Esthela Stevens Globulin (S) [Mass/Vol] 3.9 g/dL Normal [facility] Comment on above: Performed By: #### L IVER, LDH, BMP #### [facility] [address] [place] [address] Dr. Esthela Stevens Protein [Mass/Vol] 7.8 g/dL Normal 6.4-8.2 [facility] Comment on above: Performed By: #### L IVER, LDH, BMP #### [facility] [address] [place] [address] Dr. Esthela Stevens CREAT/GFRon 08-19-2022 Creatinine [Mass/Vol] 0.85 mg/dL 0.50 - 1.20 mg/dL [facility] GFR/1.73 sq M.predicted CKD-EPI (S/P/Bld) [Vol rate/Area] - PINF [facility] Comment on above: Reported eGFR is bas ed on the CKD-EPI 2020 equation using creatinine, age, and sex. Interpretation and review of laboratory results Normal [facility] Test performed at address of the patient encounter. 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 [facility] Radiology Study observation (narrative) [facility] PT Skull base to mid-thighOr dered By: Hawa Pichardo on 08-19-2022 [facility] Work Phone: CBC AUTO DIFFon 08-12-2022 BASO # 0.1 103/ul Normal 0.0-0.1 [facility] Comment on above: Performed By: #### L IVER, LDH, BMP #### [facility] [address] [place] [address] Dr. Esthela Stevens Basophils/100 WBC (Bld) 1.0 % Normal 0.2-2.0 [facility] Comment on above: Performed By: #### L IVER, LDH, BMP #### [facility] [address] [place] [address] Dr. Esthela Stevens EO # 0.1 103/ul Normal 0.0-0.7 [facility] Comment on above: Performed By: #### L IVER, LDH, BMP #### [facility] [address] [place] [address] Dr. Esthela Stevens Eosinophils/100 WBC (Bld) 1.6 % Normal 0.9-7.0 [facility] Comment on above: Performed By: #### L IVER, LDH, BMP #### [facility] [address] [address] [address] Esthela Stevens Erythrocyte distribution width (RBC) [Ratio] 12.5 % Normal 11.0-15.0 [facility] Comment on above: Performed By: #### L IVER, LDH, BMP #### [facility] [address] [place] [address] Dr. Esthela Stevens Hematocrit (Bld) [Volume fraction] 40.1 % Normal 36.0-48.0 [facility] Comment on above: Performed By: #### L IVER, LDH, BMP #### [facility] [address] [place] [address] Dr. Esthela Stevens Hemoglobin (Bld) [Mass/Vol] 12.3 g/dL Normal 12.0-16.0 [facility] Comment on above: Performed By: #### L IVER, LDH, BMP #### [facility] [address] [place] [address] Dr. Esthela Stevens IG # 0.01 10e3/ul Normal 0.00-0.03 [facility] Comment on above: Performed By: #### L IVER, LDH, BMP #### [facility] [address] [place] [address] Dr. Esthela Stevens IG % 0.2 % Normal 0.0-0.5 [facility] Comment on above: Performed By: #### L IVER, LDH, BMP #### [facility] [address] [place] [address] Dr. Esthela Stevens LYMPH # 1.8 103/ul Normal 1.2-3.8 [facility] Comment on above: Performed By: #### L IVER, LDH, BMP #### [facility] [address] [place] [address] Dr. Esthela Stevens Lymphocytes/100 WBC (Bld) 28.0 % Normal 20.5-60.0 [facility] Comment on above: Performed By: #### L IVER, LDH, BMP #### [facility] [address] [place] [address] Dr. Esthela Stevens MANUAL DIFF REQ NO Normal [facility] Comment on above: Performed By: #### L IVER, LDH, BMP #### [facility] [address] [place] [address] Dr. Esthela Stevens MCH (RBC) [Entitic mass] 26.8 pg Normal 26.7-34.0 [facility] Comment on above: Performed By: #### L IVER, LDH, BMP #### [facility] [address] [place] [address] Dr. Esthela Stevens MCHC (RBC) [Mass/Vol] 30.7 g/dL Normal 29.9-35.2 [facility] Comment on above: Performed By: #### L IVER, LDH, BMP #### [facility] [address] [place] [address] Dr. Esthela Stevens MCV (RBC) [Entitic vol] 87.4 fL Normal 81.0-99.0 [facility] Comment on above: Performed By: #### L IVER, LDH, BMP #### [facility] [address] [place] [address] Dr. Esthela Stevens MONO # 0.6 103/ul Normal 0.3-0.8 [facility] Comment on above: Performed By: #### L IVER, LDH, BMP #### [facility] [address] [place] [address] Dr. Esthela Stevens Monocytes/100 WBC (Bld) 9.4 % Normal 1.7-12.0 [facility] Comment on above: Performed By: #### L IVER, LDH, BMP #### [facility] [address] [place] [address] Dr. Esthela Stevens NEUT # 3.8 103/ul Normal 1.4-6.5 [facility] Comment on above: Performed By: #### L IVER, LDH, BMP #### [facility] [address] [place] [address] Dr. Esthela Stevens Neutrophils/100 WBC (Bld) 59.8 % Normal 43.0-75.0 [facility] Comment on above: Performed By: #### L IVER, LDH, BMP #### [facility] [address] [place] [address] Dr. Esthela Stevens Platelet mean volume (Bld) [Entitic vol] 9.6 fL Normal 9.5-13.5 [facility] Comment on above: Performed By: #### L IVER, LDH, BMP #### [facility] [address] [place] [address] Dr. Esthela Stevens PLT 341 103/ul Normal 150-450 [facility] Comment on above: Performed By: #### L IVER, LDH, BMP #### [facility] [address] [place], [place] [address] Dr. Esthela Stevens RBC 4.59 106/ul Normal 4.20-5.40 [facility] Comment on above: Performed By: #### L IVER, LDH, BMP #### [facility] [address] [place], [place] [address] Dr. Esthela Stevens WBC 6.3 103/ul Normal 4.0-11.0 [facility] Comment on above: Performed By: #### L IVER, LDH, BMP #### [facility] [address] [place], [place] [address] ABD/PELV W CONon [...] TIMMY SHAY Date: 2022-08-12 17:04 Normal [facility] CULTURE URINEon 08-12-2022 CULTURE URINE Culture Observations : MODERATE GROWTH OF MIXED GENITAL SUNITA. NO POTENTIAL PATHOGENS SEEN. Normal [facility] Comment on above: Performed By: #### L IVER, LDH, BMP #### [facility] [address] [place] [address] Dr. Esthela Stevens ER URINE PROFILEon 3 Bilirubin Ql (U) Negative Normal NEGATIVE [facility] Comment on above: Performed By: #### P REG #### [facility] [address] [place] [address] Dr. Esthela Stevens Clarity (U) CLEAR Normal CLEAR [facility] Comment on above: Performed By: #### P REG #### [facility] [address] [place] [address] Dr. Esthela Stevens Color (U) LT. YELLOW Normal YELLOW [facility] Comment on above: Performed By: #### P REG #### [facility] [address] [place] [address] Dr. Esthela Stevens ERUAHD A micrscopic examination will be performed if indicated. Normal [facility] Comment on above: Performed By: #### P REG #### [facility] [address] [place] [address] Dr. Esthela Stevens Glucose Ql (U) Negative Normal NEGATIVE [facility] Comment on above: Performed By: #### P REG #### [facility] [address] [place] [address] Dr. Esthela Stevens Hemoglobin Ql (U) Negative Normal NEGATIVE [facility] Comment on above: Performed By: #### P REG #### [facility] [address] [place] [address] Dr. Esthela Stevens Ketones Ql (U) Negative Normal NEGATIVE [facility] Comment on above: Performed By: #### P REG #### [facility] [address] [place] [address] Dr. Esthela Stevens LEUKOCYTES SMALL Abnormal NEGATIVE [facility] Comment on above: Performed By: #### P REG #### [facility] [address] [place] [address] Dr. Esthela Stevens Nitrite Ql (U) Negative Normal NEGATIVE [facility] Comment on above: Performed By: #### P REG #### [facility] [address] [place] [address] Dr. Esthela Stevens pH (U) 7.0 [pH] Normal 5-9 [facility] Comment on above: Performed By: #### P REG #### [facility] [address] [place] [address] Dr. Esthela Stevens SPEC GRAVITY 1.020 Normal 1.005-<=1.025 [facility] Comment on above: Performed By: #### P REG #### [facility] [address] [place] [address] Dr. Esthela Stevens UA PROTEIN Negative Normal NEGATIVE/ TRACE [facility] Comment on above: Performed By: #### P REG #### [facility] [address] [place] [address] Dr. Esthela Stevens UR MICRO IND INDICATED Normal [facility] Comment on above: Performed By: #### P REG #### [facility] [address] [place] [address] Dr. Esthela Stevens Urobilinogen Qn (U) 0.2 {Emeka'U}/dL Normal 0.2 - 1. 0 [facility] Comment on above: Performed By: #### P REG #### [facility] [address] [place] [address] Dr. Esthela Stevens LIPASEon 08-12-2022 Lipase [Catalytic activity/Vol] 75.0 U/L Normal 73.0-393.0 [facility] Comment on above: Performed By: #### P REG #### [facility] [address] [place] [address] Dr. Esthela Stevens URon 08-12-2022 , QUAL Negative Normal NEGATIVE [facility] Comment on above: Performed By: #### P REG #### [facility] [address] [place] [address] Dr. Esthela Stevens PROF 14(COMP METB)on 023 Albumin [Mass/Vol] 4.0 g/dL Normal 3.4-5.0 [facility] Comment on above: Performed By: #### P REG #### [facility] [address] [place] [address] Dr. Esthela Stevens Albumin/Globulin [Mass ratio] 1.1 {ratio} Normal [facility] Comment on above: Performed By: #### P REG #### [facility] [address] [place] [address] Dr. Esthela Stevens ALP [Catalytic activity/Vol] 73 U/L Normal 46-116 [facility] Comment on above: Performed By: #### P REG #### [facility] [address] [place] [address] Dr. Esthela Stevens ALT [Catalytic activity/Vol] 82 U/L Critically high 14-59 [facility] Comment on above: Performed By: #### P REG #### [facility] [address] [place] [address] Dr. Esthela Stevens Anion gap [Moles/Vol] 12.0 mmol/L Normal [facility] Comment on above: Performed By: #### P REG #### [facility] [address] [place] [address] Dr. Esthela Stevens AST [Catalytic activity/Vol] 33 U/L Normal 15-37 [facility] Comment on above: Performed By: #### P REG #### [facility] [address] [place] [address] Dr. Esthela Stevens Bilirubin [Mass/Vol] 0.2 mg/dL Normal 0.2-1.0 [facility] Comment on above: Performed By: #### P REG #### [facility] [address] [address] [address] Esthela Stevens Calcium [Mass/Vol] 9.4 mg/dL Normal 8.5-10.1 [facility] Comment on above: Performed By: #### P REG #### [facility] [address] [address] [address] Esthela Stevens Chloride [Moles/Vol] 102 mmol/L Normal 98-107 [facility] Comment on above: Performed By: #### P REG #### [facility] [address] [place] [address] Dr. Esthela Stevens CO2 [Moles/Vol] 27.8 mmol/L Normal 21.0-32.0 [facility] Comment on above: Performed By: #### P REG #### [facility] [address] [place] [address] Dr. Esthela Stevens Creatinine [Mass/Vol] 0.69 mg/dL Normal 0.55-1.02 [facility] Comment on above: Performed By: #### P REG #### [facility] [address] [place] [address] Dr. Esthela Stevens EGFR-AF LIBYAN >60 Normal >=60 [facility] Comment on above: Performed By: #### P REG #### [facility] [address] [place] [address] Dr. Esthela Stevens EGFR-NON AF LIBYAN >60 Normal >=60 [facility] Comment on above: Performed By: #### P REG #### [facility] [address] [address] [address] Esthela Stevens Globulin (S) [Mass/Vol] 3.5 g/dL Normal [facility] Comment on above: Performed By: #### P REG #### [facility] [address] [place] [address] Dr. Esthela Stevens Glucose [Mass/Vol] 109 mg/dL Critically high 74-106 [facility] Comment on above: Performed By: #### P REG #### [facility] [address] [address] [address] Esthela Stevens Potassium [Moles/Vol] 3.8 mmol/L Normal 3.5-5.1 [facility] Comment on above: Performed By: #### P REG #### [facility] [address] [address] [address] Esthela Stevens Protein [Mass/Vol] 7.5 g/dL Normal 6.4-8.2 [facility] Comment on above: Performed By: #### P REG #### [facility] [address] [address] [address] Esthela Stevens Sodium [Moles/Vol] 138 mmol/L Normal 136-145 [facility] Comment on above: Performed By: #### P REG #### [facility] [address] [place] [address] Dr. Esthela Stevens Urea nitrogen [Mass/Vol] 6.0 mg/dL Critically low 7.0-18.0 [facility] Comment on above: Performed By: #### P REG #### [facility] [address] [place] [address] Dr. Esthela Stevens Urea nitrogen/Creatinine [Mass ratio] 8.7 mg/mg Normal [facility] Comment on above: Performed By: #### P REG #### [facility] [address] [place] [address] Dr. Esthela Stevens URINE MICROSCOPIC ONLYon BACTERIA SMALL Abnormal NONE SEEN [facility] Comment on above: Performed By: #### P REG #### [facility] [address] [address] [address] Esthela Stevens Bacteria identified Cx Nom (U) INDICATED Normal [facility] Comment on above: Performed By: #### P REG #### [facility] [address] [place] [address] Dr. Esthela Stevens CAST NONE SEEN Normal NONE SEEN [facility] Comment on above: Performed By: #### P REG #### [facility] [address] [place] [address] Dr. Esthela Stevens Crystals LM Nom (Urine sed) NONE SEEN Normal NONE SEEN [facility] Comment on above: Performed By: #### P REG #### [facility] [address] [place] [address] Dr. Esthela Stevens Epithelial cells LM Ql (Urine sed) MODERATE Abnormal NONE SEEN /RARE [facility] Comment on above: Performed By: #### P REG #### [facility] [address] [place] [address] Dr. Esthela Stevens MUCOUS NONE SEEN Normal NONE SEEN [facility] Comment on above: Performed By: #### P REG #### [facility] [address] [place] [address] Dr. Esthela Stevens RBC NONE SEEN Abnormal 0-2 [facility] Comment on above: Performed By: #### P REG #### [facility] [address] [place] [address] Dr. Esthela Stevens WBC 2-5 Abnormal NONE SEEN [facility] Comment on above: Performed By: #### P REG #### [facility] [address] [place] [address] Dr. Esthela Stevens PAP ACOG PANEL 2: 21 to 29on 08-11-2022 . . Normal [facility] Comment on above: Performed By: #### [id number] #### [facility] [address] [place] [address] Dr. Esthela Stevens Age Gdln ACOG Testing 21-29 Normal [facility] Comment on above: Performed By: #### [id number] #### [facility] [address] [place] [address] Dr. Esthela Stevens DIAGNOSIS: Comment Abnormal [facility] Comment on above: Result Comment: EPIT HELIAL CELL ABNORMALITY. ATYPICAL SQUAMOUS CELLS OF UNDETERMINED SIGNIFICANCE (ASC-US). Performed By: #### [id number] #### [facility] [address] [place] [address] Dr. Esthela Stevens Electronically signed by: Comment Normal [facility] Comment on above: Result Comment: Zoe Moncada MD, Pathologist Performed By: #### [id number] #### [facility] [address] [place] [address] Dr. Esthela Stevens HPV Aptima Negative Normal Negative [facility] Comment on above: Result Comment: This nucleic acid amplification test detects fourteen high-risk HPV types (16,18,31,33,35,39,45,51,52,56,58,59,66,68) without differentiation. Performed By: #### [id number] #### [facility] [address] [place] [address] Dr. Esthela Stevens Methodology: Comment Normal [facility] Comment on above: Result Comment: This liquid based ThinPrep(R) pap test was screened with the use of an image guided system. Performed By: #### [id number] #### [facility] [address] [place] [address] Dr. Esthela Stevens Note: Comment Normal [facility] Comment on above: Result Comment: The Pap smear is a screening test designed to aid in the detection of premalignant and malignant conditions of the uterine cervix. It is not a diagnostic procedure and should not be used as the sole means of detecting cervical cancer. Both false-positive and false-negative reports do occur. . Performed By: #### [id number] #### [facility] [address] [place] [address] Dr. Esthela Stevens Pathologist Provided ICD10 Comment Normal [facility] Comment on above: Result Comment: [id number] Performed By: #### [id number] #### [facility] [address] [place] [address] Dr. Esthela Stevens Performed by: Comment Normal [facility] Comment on above: Result Comment: Nevin Ardon Mail Service Coordinator (ASCP) Performed By: #### [id number] #### [facility] [address] [place] [address] Dr. Esthela Stevens Reflex Criteria: Comment Normal [facility] Comment on above: Result Comment: See below for HPV testing results. . Performed By: #### [id number] #### [facility] [address] [place] [address] Dr. Esthela Stevens Specimen adequacy: Comment Normal [facility] Comment on above: Result Comment: Sati sfactory for evaluation. Endocervical and/or squamous metaplastic cells (endocervical component) are present. Performed By: #### [id number] #### [facility] [address] [place] [address] Dr. Esthela Stevens GI PANEL (PCR)on 06-03-2022 Adenovirus F 40/41 Not detected Normal NOT DETECTED [facility] Comment on above: Performed By: #### P REG #### [facility] [address] [place] [address] Dr. Esthela Stevens Astrovirus Not detected Normal NOT DETECTED [facility] Comment on above: Performed By: #### P REG #### [facility] [address] [place] [address] Dr. Esthela Stevnes C. Diff toxin A/B Detected Critically abnormal NOT DETECTED [facility] Comment on above: Performed By: #### P REG #### [facility] [address] [place] [address] Dr. Esthela Stevens Campylobacter Not detected Normal NOT DETECTED [facility] Comment on above: Performed By: #### P REG #### [facility] [address] [place] [address] Dr. Esthela Stevens Cryptosporidium Not detected Normal NOT DETECTED [facility] Comment on above: Performed By: #### P REG #### [facility] [address] [place] [address] Dr. Esthela Stevens Cyclos. Cayetanensis Not detected Normal NOT DETECTED [facility] Comment on above: Performed By: #### P REG #### [facility] [address] [place] [address] Dr. Esthela Stevens E. Coli O157 Not Applicable Normal Not Applicable [facility] Comment on above: Performed By: #### P REG #### [facility] [address] [place] [address] Dr. Esthela Stevens E. histolytica Not detected Normal NOT DETECTED [facility] Comment on above: Performed By: #### P REG #### [facility] [address] [place] [address] Dr. Esthela Stevens EAEC Not detected Normal NOT DETECTED [facility] Comment on above: Performed By: #### P REG #### [facility] [address] [place] [address] Dr. Esthela Stevens EIEC Not detected Normal NOT DETECTED [facility] Comment on above: Performed By: #### P REG #### [facility] [address] [place] [address] Dr. Esthela Stevens EPEC Not detected Normal NOT DETECTED [facility] Comment on above: Performed By: #### P REG #### [facility] [address] [place] [address] Dr. Esthela Stevens ETEC Not detected Normal NOT DETECTED [facility] Comment on above: Performed By: #### P REG #### [facility] [address] [place] [address] Dr. Esthela Barcenas Lamblia Not detected Normal NOT DETECTED [facility] Comment on above: Performed By: #### P REG #### [facility] [address] [place] [address] Dr. Esthela KELLY CONTROLS PASSED Normal [facility] Comment on above: Performed By: #### P REG #### [facility] Laboratory [address] [place] [address] Dr. Esthela MERCADO [facility] HEADER GI PANEL BACTERIA Normal T [facility] Comment on above: Performed By: #### P REG #### [facility] [address] [place] [address] Dr. Esthela LARA ECOLI GI PANEL DIARRHEAGENIC E.COLI / SHIGELLA Normal [facility] Comment on above: Performed By: #### P REG #### [facility] [address] [place] [address] Dr. Esthela LARA INFO SEE BELOW [facility] Comment on above: Result Comment: EAEC - Enteroaggregative E. Coli EPEC- Enteropathogenic E. Coli ETEC- Enterotoxigenic E. Coli lt/st STEC- Shigella-like toxin-producing E. Coli stx1/stx2 EIEC- Shigella/Enteroinvasive E. Coli Performed By: #### P REG #### [facility] [address] [place] [address] Dr. Esthela LARA PARASITES GI PANEL PARASITES Normal [facility] Comment on above: Performed By: #### P REG #### [facility] [address] [address] [address] Esthela LARA VIRUS GI PANEL VIRUSES Normal [facility] Comment on above: Performed By: #### P REG #### [facility] [address] [address] [address] Esthela Stevens Norovirus GI/GII Not detected Normal NOT DETECTED [facility] Comment on above: Performed By: #### P REG #### [facility] [address] [place] [address] Dr. Esthela Herman. Shigelloides Not detected Normal NOT DETECTED [facility] Comment on above: Performed By: #### P REG #### [facility] [address] [place] [address] Dr. Esthela Stevens Rotavirus A Not detected Normal NOT DETECTED [facility] Comment on above: Performed By: #### P REG #### [facility] [address] [place] [address] Dr. Esthela Stevens Salmonella Not detected Normal NOT DETECTED [facility] Comment on above: Performed By: #### P REG #### [facility] [address] [place] [address] Dr. Esthela Stevens Sapovirus Not detected Normal NOT DETECTED [facility] Comment on above: Performed By: #### P REG #### [facility] [address] [place] [address] Dr. Esthela Stevens STEC Not detected Normal NOT DETECTED [facility] Comment on above: Performed By: #### P REG #### [facility] [address] [place] [address] Dr. Esthela Stevens Vibrio Not detected Normal NOT DETECTED [facility] Comment on above: Performed By: #### P REG #### [facility] [address] [place] [address] Dr. Esthela Stevens Vibrio Cholera Not detected Normal NOT DETECTED [facility] Comment on above: Performed By: #### P REG #### [facility] [address] [place] [address] Dr. Esthela Stevens Y. Enterocolitica Not detected Normal NOT DETECTED [facility] Comment on above: Performed By: #### P REG #### [facility] [address] [place] [address] Dr. Esthela Stevens CBC AUTO DIFFon 06-02-2022 BASO # 0.1 103/ul Normal 0.0-0.1 [facility] Comment on above: Performed By: #### L IVER, LDH, BMP #### [facility] [address] [place] [address] Dr. Esthela Stevens Basophils/100 WBC (Bld) 0.6 % Normal 0.2-2.0 [facility] Comment on above: Performed By: #### L IVER, LDH, BMP #### [facility] [address] [place] [address] Dr. Esthela Stevens EO # 0.5 103/ul Normal 0.0-0.7 [facility] Comment on above: Performed By: #### L IVER, LDH, BMP #### [facility] [address] [place] [address] Dr. Esthela Stevens Eosinophils/100 WBC (Bld) 4.3 % Normal 0.9-7.0 [facility] Comment on above: Performed By: #### L IVER, LDH, BMP #### [facility] [address] [place] [address] Dr. Esthela Stevens Erythrocyte distribution width (RBC) [Ratio] 13.0 % Normal 11.0-15.0 [facility] Comment on above: Performed By: #### L IVER, LDH, BMP #### [facility] [address] [place] [address] Dr. Esthela Stevens Hematocrit (Bld) [Volume fraction] 33.6 % Critically low 36.0-48.0 [facility] Comment on above: Performed By: #### L IVER, LDH, BMP #### [facility] [address] [address] [address] Esthela Stevens Hemoglobin (Bld) [Mass/Vol] 10.9 g/dL Critically low 12.0-16.0 [facility] Comment on above: Performed By: #### L IVER, LDH, BMP #### [facility] [address] [place] [address] Dr. Esthela Stevens IG # 0.05 10e3/ul Critically high 0.00-0.03 [facility] Comment on above: Performed By: #### L IVER, LDH, BMP #### [facility] [address] [place] [address] Dr. Esthela Stevens IG % 0.5 % Normal 0.0-0.5 [facility] Comment on above: Performed By: #### L IVER, LDH, BMP #### [facility] [address] [place] [address] Dr. Esthela Stevens LYMPH # 2.4 103/ul Normal 1.2-3.8 [facility] Comment on above: Performed By: #### L IVER, LDH, BMP #### [facility] [address] [place] [address] Dr. Esthela Stevens Lymphocytes/100 WBC (Bld) 22.4 % Normal 20.5-60.0 [facility] Comment on above: Performed By: #### L IVER, LDH, BMP #### [facility] [address] [place] [address] Dr. Esthela Stevens MANUAL DIFF REQ NO Normal [facility] Comment on above: Performed By: #### L IVER, LDH, BMP #### [facility] [address] [place] [address] Dr. Esthela Stevens MCH (RBC) [Entitic mass] 26.9 pg Normal 26.7-34.0 [facility] Comment on above: Performed By: #### L IVER, LDH, BMP #### [facility] [address] [place] [address] Dr. Esthela Stevens MCHC (RBC) [Mass/Vol] 32.4 g/dL Normal 29.9-35.2 [facility] Comment on above: Performed By: #### L IVER, LDH, BMP #### [facility] [address] [address] [address] Esthela Stevens MCV (RBC) [Entitic vol] 83.0 fL Normal 81.0-99.0 [facility] Comment on above: Performed By: #### L IVER, LDH, BMP #### [facility] [address] [place] [address] Dr. Esthela Stevens MONO # 0.8 103/ul Normal 0.3-0.8 [facility] Comment on above: Performed By: #### L IVER, LDH, BMP #### [facility] [address] [place] [address] Dr. Esthela Stevens Monocytes/100 WBC (Bld) 7.1 % Normal 1.7-12.0 [facility] Comment on above: Performed By: #### L IVER, LDH, BMP #### [facility] [address] [place] [address] Dr. Esthela Stevens NEUT # 7.0 103/ul Critically high 1.4-6.5 [facility] Comment on above: Performed By: #### L IVER, LDH, BMP #### [facility] [address] [place] [address] Dr. Esthela Stevens Neutrophils/100 WBC (Bld) 65.1 % Normal 43.0-75.0 [facility] Comment on above: Performed By: #### L IVER, LDH, BMP #### [facility] [address] [place] [address] Dr. Esthela Stevens Platelet mean volume (Bld) [Entitic vol] 8.9 fL Critically low 9.5-13.5 [facility] Comment on above: Performed By: #### L IVER, LDH, BMP #### [facility] [address] [place] [address] Dr. Esthela Stevens PLT 519 103/ul Critically high 150-450 [facility] Comment on above: Performed By: #### L IVER, LDH, BMP #### [facility] [address] [place] [address] Dr. Esthela Stevens RBC 4.05 106/ul Critically low 4.20-5.40 [facility] Comment on above: Performed By: #### L IVER, LDH, BMP #### [facility] [address] [address] [address] Esthela Stevens WBC 10.8 103/ul Normal 4.0-11.0 [facility] Comment on above: Performed By: #### L IVER, LDH, BMP #### [facility] [address] [address] [address] Esthela Stevens PROF 14(COMP METB)on 022 Albumin [Mass/Vol] 3.7 g/dL Normal 3.4-5.0 [facility] Comment on above: Performed By: #### L IVER, LDH, BMP #### [facility] [address] [place] [address] Dr. Esthela Stevens Albumin/Globulin [Mass ratio] 1.0 {ratio} Normal [facility] Comment on above: Performed By: #### L IVER, LDH, BMP #### [facility] [address] [place] [address] Dr. Esthela Stevens ALP [Catalytic activity/Vol] 75 U/L Normal 46-116 [facility] Comment on above: Performed By: #### L IVER, LDH, BMP #### [facility] [address] [place] [address] Dr. Esthela Stevens ALT [Catalytic activity/Vol] 95 U/L Critically high 14-59 [facility] Comment on above: Performed By: #### L IVER, LDH, BMP #### [facility] [address] [address] [address] Esthela Stevens Anion gap [Moles/Vol] 13.4 mmol/L Normal [facility] Comment on above: Performed By: #### L IVER, LDH, BMP #### [facility] [address] [address] [address] Esthela Stevens AST [Catalytic activity/Vol] 31 U/L Normal 15-37 [facility] Comment on above: Performed By: #### L IVER, LDH, BMP #### [facility] [address] [place] [address] Dr. Esthela Stevens Bilirubin [Mass/Vol] 0.1 mg/dL Critically low 0.2-1.0 [facility] Comment on above: Performed By: #### L IVER, LDH, BMP #### [facility] [address] [place] [address] Dr. Esthela Stevens Calcium [Mass/Vol] 9.3 mg/dL Normal 8.5-10.1 [facility] Comment on above: Performed By: #### L IVER, LDH, BMP #### [facility] [address] [place] [address] Dr. Esthela Stevens Chloride [Moles/Vol] 102 mmol/L Normal 98-107 [facility] Comment on above: Performed By: #### L IVER, LDH, BMP #### [facility] [address] [place] [address] Dr. Esthela Stevens CO2 [Moles/Vol] 26.4 mmol/L Normal 21.0-32.0 [facility] Comment on above: Performed By: #### L IVER, LDH, BMP #### [facility] [address] [place] [address] Dr. Esthela Stevens Creatinine [Mass/Vol] 0.67 mg/dL Normal 0.55-1.02 [facility] Comment on above: Performed By: #### L IVER, LDH, BMP #### [facility] [address] [place] [address] Dr. Esthela Stevens EGFR-AF LIBYAN >60 Normal >=60 [facility] Comment on above: Performed By: #### L IVER, LDH, BMP #### [facility] [address] [place] [address] Dr. Estehla Stevens EGFR-NON AF LIBYAN >60 Normal >=60 [facility] Comment on above: Performed By: #### L IVER, LDH, BMP #### [facility] [address] [place] [address] Dr. Esthela Stevens Globulin (S) [Mass/Vol] 3.7 g/dL Normal [facility] Comment on above: Performed By: #### L IVER, LDH, BMP #### [facility] [address] [address] [address] Esthela Stevens Glucose [Mass/Vol] 101 mg/dL Normal 74-106 [facility] Comment on above: Performed By: #### L IVER, LDH, BMP #### [facility] [address] [place] [address] Dr. Esthela Stevens Potassium [Moles/Vol] 3.8 mmol/L Normal 3.5-5.1 [facility] Comment on above: Performed By: #### L IVER, LDH, BMP #### [facility] [address] [place] [address] Dr. Esthela Stevens Protein [Mass/Vol] 7.4 g/dL Normal 6.4-8.2 [facility] Comment on above: Performed By: #### L IVER, LDH, BMP #### [facility] [address] [place] [address] Dr. Esthela Stevens Sodium [Moles/Vol] 138 mmol/L Normal 136-145 [facility] Comment on above: Performed By: #### L IVER, LDH, BMP #### [facility] [address] [place] [address] Dr. Esthela Stevens Urea nitrogen [Mass/Vol] 12.0 mg/dL Normal 7.0-18.0 [facility] Comment on above: Performed By: #### L IVER, LDH, BMP #### [facility] [address] [place] [address] Dr. Esthela Stevens Urea nitrogen/Creatinine [Mass ratio] 17.9 mg/mg Normal [facility] Comment on above: Performed By: #### L IVER, LDH, BMP #### [facility] [address] [place] [address] Dr. Esthela Stevens CALCIUMon 05-29-2022 Calcium [Mass/Vol] 9.0 mg/dL 8.6 - 10. 5 mg/dL [facility] CBC,PLATELETSon 05-29-2022 Erythrocyte distribution width (RBC) [Ratio] 13.1 % 10.8 - 14.9 % [facility] Hematocrit (Bld) [Volume fraction] 33.0 % Low 34.9 - 44.3 % [facility] Hemoglobin (Bld) [Mass/Vol] 10.5 g/dL Low 11.4 - 15.2 g/dL [facility] Interpretation and review of laboratory results Abnormal [facility] MCH (RBC) [Entitic mass] 27.1 pg 25.9 - 33.9 pg [facility] MCHC (RBC) [Mass/Vol] 31.8 g/dL 31.4 - 35.9 g/dL [facility] MCV (RBC) [Entitic vol] 85.1 fL 79.6 - 97.7 fL [facility] Platelet mean volume (Bld) [Entitic vol] 9.1 fL 8.5 - 12.2 fL [facility] Platelets (Bld) [#/Vol] 423 10*3/uL High 150 - 393 K/uL [facility] RBC (Bld) [#/Vol] 3.88 10*6/uL Low [facility] WBC (Bld) [#/Vol] 7.36 10*3/uL 3.99 - 11. 19 K/uL [facility] CHEM 7 (LYTES,BUN,CREA,GLUC) on 05-29-2022 Anion gap [Moles/Vol] 13 mmol/L 7 - 17 mmol/L [facility] Chloride [Moles/Vol] 104 mmol/L 98 - 10 8 mmol/L [facility] CO2 [Moles/Vol] 26 mmol/L 21 - 31 mmol/L [facility] Creatinine [Mass/Vol] 0.66 mg/dL 0.50 - 1.20 mg/dL [facility] GFR/1.73 sq M.predicted CKD-EPI (S/P/Bld) [Vol rate/Area] - PINF [facility] Comment on above: Reported eGFR is bas ed on the CKD-EPI 2020 equation using creatinine, age, and sex. Glucose [Mass/Vol] 93 mg/dL 70 - 99 mg/dL [facility] Osmolality Calc [Osmolality] 288 [facility] Potassium [Moles/Vol] 4.2 mmol/L 3.5 - 5.0 mmol/L [facility] Sodium [Moles/Vol] 139 mmol/L 135 - 145 mmol/L [facility] Urea nitrogen [Mass/Vol] 5 mg/dL Low 7 - 25 mg/dL [facility] Urea nitrogen/Creatinine [Mass ratio] 8 mg/mg [facility] MAGNESIUMon 05-29-2022 Magnesium [Mass/Vol] 2.1 mg/dL 1.6 - 2 .6 mg/dL [facility] No Panel Informationon 05-29 Interpretation and review of laboratory results Abnormal [facility] Interpretation and review of laboratory results Normal [facility] PHOSPHATE, INORGANICon 05-29 Phosphate [Mass/Vol] 4.8 mg/dL High 2.2 - 4 .6 mg/dL [facility] CALCIUMon 05-28-2022 Calcium [Mass/Vol] 8.6 mg/dL 8.6 - 10. 5 mg/dL [facility] CBC,PLATELETSon 05-28-2022 Erythrocyte distribution width (RBC) [Ratio] 13.0 % 10.8 - 14.9 % [facility] Hematocrit (Bld) [Volume fraction] 30.5 % Low 34.9 - 44.3 % [facility] Hemoglobin (Bld) [Mass/Vol] 9.8 g/dL Low 11.4 - 15.2 g/dL [facility] Interpretation and review of laboratory results Abnormal [facility] MCH (RBC) [Entitic mass] 26.8 pg 25.9 - 33.9 pg [facility] MCHC (RBC) [Mass/Vol] 32.1 g/dL 31.4 - 35.9 g/dL [facility] MCV (RBC) [Entitic vol] 83.6 fL 79.6 - 97.7 fL [facility] Platelet mean volume (Bld) [Entitic vol] 9.3 fL 8.5 - 12.2 fL [facility] Platelets (Bld) [#/Vol] 374 10*3/uL 150 - 393 K/uL [facility] RBC (Bld) [#/Vol] 3.65 10*6/uL Low [facility] WBC (Bld) [#/Vol] 6.07 10*3/uL 3.99 - 11. 19 K/uL [facility] CHEM 7 (LYTES,BUN,CREA,GLUC) on 05-28-2022 Anion gap [Moles/Vol] 11 mmol/L 7 - 17 mmol/L [facility] Chloride [Moles/Vol] 106 mmol/L 98 - 10 8 mmol/L [facility] CO2 [Moles/Vol] 25 mmol/L 21 - 31 mmol/L [facility] Creatinine [Mass/Vol] 0.50 mg/dL 0.50 - 1.20 mg/dL [facility] GFR/1.73 sq M.predicted CKD-EPI (S/P/Bld) [Vol rate/Area] - [facility] Comment on above: Reported eGFR is bas ed on the CKD-EPI 2020 equation using creatinine, age, and sex. Glucose [Mass/Vol] 89 mg/dL 70 - 99 mg/dL [facility] Osmolality Calc [Osmolality] 285 [facility] Potassium [Moles/Vol] 4.1 mmol/L 3.5 - 5.0 mmol/L [facility] Sodium [Moles/Vol] 138 mmol/L 135 - 145 mmol/L [facility] Urea nitrogen [Mass/Vol] 3 mg/dL Low 7 - 25 mg/dL [facility] Urea nitrogen/Creatinine [Mass ratio] 6 mg/mg [facility] MAGNESIUMon 05-28-2022 Magnesium [Mass/Vol] 1.8 mg/dL 1.6 - 2 .6 mg/dL [facility] No Panel Informationon 05-28 Interpretation and review of laboratory results Abnormal [facility] Interpretation and review of laboratory results Normal [facility] PHOSPHATE, INORGANICon 05-28 Phosphate [Mass/Vol] 4.9 mg/dL High 2.2 - 4 .6 mg/dL [facility] CALCIUMon 05-27-2022 Calcium [Mass/Vol] 8.6 mg/dL 8.6 - 10. 5 mg/dL [facility] CBC,PLATELETSon 05-27-2022 Erythrocyte distribution width (RBC) [Ratio] 12.9 % 10.8 - 14.9 % [facility] Hematocrit (Bld) [Volume fraction] 31.1 % Low 34.9 - 44.3 % [facility] Hemoglobin (Bld) [Mass/Vol] 10.1 g/dL Low 11.4 - 15.2 g/dL [facility] Interpretation and review of laboratory results Abnormal [facility] MCH (RBC) [Entitic mass] 27.2 pg 25.9 - 33.9 pg [facility] MCHC (RBC) [Mass/Vol] 32.5 g/dL 31.4 - 35.9 g/dL [facility] MCV (RBC) [Entitic vol] 83.8 fL 79.6 - 97.7 fL [facility] Platelet mean volume (Bld) [Entitic vol] 9.2 fL 8.5 - 12.2 fL [facility] Platelets (Bld) [#/Vol] 344 10*3/uL 150 - 393 K/uL [facility] RBC (Bld) [#/Vol] 3.71 10*6/uL Low [facility] WBC (Bld) [#/Vol] 6.21 10*3/uL 3.99 - 11. 19 K/uL [facility] CHEM 7 (LYTES,BUN,CREA,GLUC) on 05-27-2022 Anion gap [Moles/Vol] 11 mmol/L 7 - 17 mmol/L [facility] Chloride [Moles/Vol] 105 mmol/L 98 - 10 8 mmol/L [facility] CO2 [Moles/Vol] 26 mmol/L 21 - 31 mmol/L [facility] Creatinine [Mass/Vol] 0.49 mg/dL Low 0.50 - 1.20 mg/dL [facility] GFR/1.73 sq M.predicted CKD-EPI (S/P/Bld) [Vol rate/Area] - PINF [facility] Comment on above: Reported eGFR is bas ed on the CKD-EPI 2020 equation using creatinine, age, and sex. Glucose [Mass/Vol] 93 mg/dL 70 - 99 mg/dL [facility] Interpretation and review of laboratory results Abnormal [facility] Osmolality Calc [Osmolality] 285 [facility] Potassium [Moles/Vol] 4.0 mmol/L 3.5 - 5.0 mmol/L [facility] Sodium [Moles/Vol] 138 mmol/L 135 - 145 mmol/L [facility] Urea nitrogen [Mass/Vol] 3 mg/dL Low 7 - 25 mg/dL [facility] Urea nitrogen/Creatinine [Mass ratio] 6 mg/mg [facility] MAGNESIUMon 05-27-2022 Magnesium [Mass/Vol] 1.9 mg/dL 1.6 - 2 .6 mg/dL [facility] No Panel Informationon 05-27 Interpretation and review of laboratory results Normal [facility] PHOSPHATE, INORGANICon 05-27 Phosphate [Mass/Vol] 4.5 mg/dL 2.2 - 4 .6 mg/dL [facility] CALCIUMon 05-26-2022 Calcium [Mass/Vol] 8.4 mg/dL Low 8.6 - 10. 5 mg/dL [facility] CBC,PLATELETSon 05-26-2022 Erythrocyte distribution width (RBC) [Ratio] 12.8 % 10.8 - 14.9 % [facility] Hematocrit (Bld) [Volume fraction] 31.5 % Low 34.9 - 44.3 % [facility] Hemoglobin (Bld) [Mass/Vol] 10.0 g/dL Low 11.4 - 15.2 g/dL [facility] Interpretation and review of laboratory results Abnormal [facility] MCH (RBC) [Entitic mass] 27.0 pg 25.9 - 33.9 pg [facility] MCHC (RBC) [Mass/Vol] 31.7 g/dL 31.4 - 35.9 g/dL [facility] MCV (RBC) [Entitic vol] 84.9 fL 79.6 - 97.7 fL [facility] Platelet mean volume (Bld) [Entitic vol] 9.7 fL 8.5 - 12.2 fL [facility] Platelets (Bld) [#/Vol] 327 10*3/uL 150 - 393 K/uL [facility] RBC (Bld) [#/Vol] 3.71 10*6/uL Low [facility] WBC (Bld) [#/Vol] 7.91 10*3/uL 3.99 - 11. 19 K/uL [facility] CHEM 7 (LYTES,BUN,CREA,GLUC) on 05-26-2022 Anion gap [Moles/Vol] 13 mmol/L 7 - 17 mmol/L [facility] Chloride [Moles/Vol] 102 mmol/L 98 - 10 8 mmol/L [facility] CO2 [Moles/Vol] 23 mmol/L 21 - 31 mmol/L [facility] Creatinine [Mass/Vol] 0.48 mg/dL Low 0.50 - 1.20 mg/dL [facility] GFR/1.73 sq M.predicted CKD-EPI (S/P/Bld) [Vol rate/Area] - PINF [facility] Comment on above: Reported eGFR is bas ed on the CKD-EPI 2020 equation using creatinine, age, and sex. Glucose [Mass/Vol] 154 mg/dL High 70 - 99 mg/dL [facility] Osmolality Calc [Osmolality] 282 [facility] Potassium [Moles/Vol] 4.1 mmol/L 3.5 - 5.0 mmol/L [facility] Sodium [Moles/Vol] 134 mmol/L Low 135 - 145 mmol/L [facility] Urea nitrogen [Mass/Vol] 3 mg/dL Low 7 - 25 mg/dL [facility] Urea nitrogen/Creatinine [Mass ratio] 6 mg/mg [facility] MAGNESIUMon 05-26-2022 Magnesium [Mass/Vol] 1.8 mg/dL 1.6 - 2 .6 mg/dL [facility] No Panel Informationon 05-26 Interpretation and review of laboratory results Abnormal [facility] Interpretation and review of laboratory results Normal [facility] PHOSPHATE, INORGANICon 05-26 Phosphate [Mass/Vol] 3.4 mg/dL 2.2 - 4 .6 mg/dL [facility] CALCIUMon 05-25-2022 Calcium [Mass/Vol] 8.5 mg/dL Low 8.6 - 10. 5 mg/dL [facility] CBC,PLATELETSon 05-25-2022 Erythrocyte distribution width (RBC) [Ratio] 12.8 % 10.8 - 14.9 % [facility] Hematocrit (Bld) [Volume fraction] 31.7 % Low 34.9 - 44.3 % [facility] Hemoglobin (Bld) [Mass/Vol] 9.8 g/dL Low 11.4 - 15.2 g/dL [facility] Interpretation and review of laboratory results Abnormal [facility] MCH (RBC) [Entitic mass] 26.6 pg 25.9 - 33.9 pg [facility] MCHC (RBC) [Mass/Vol] 30.9 g/dL Low 31.4 - 35.9 g/dL [facility] [facility] MCV (RBC) [Entitic vol] 85.9 fL 79.6 - 97.7 fL [facility] Platelet mean volume (Bld) [Entitic vol] 9.7 fL 8.5 - 12.2 fL [facility] Platelets (Bld) [#/Vol] 292 10*3/uL 150 - 393 K/uL [facility] RBC (Bld) [#/Vol] 3.69 10*6/uL Low [facility] WBC (Bld) [#/Vol] 9.85 10*3/uL 3.99 - 11. 19 K/uL [facility] CHEM 7 (LYTES,BUN,CREA,GLUC) on 05-25-2022 Anion gap [Moles/Vol] 13 mmol/L 7 - 17 mmol/L [facility] Chloride [Moles/Vol] 104 mmol/L 98 - 10 8 mmol/L [facility] CO2 [Moles/Vol] 24 mmol/L 21 - 31 mmol/L [facility] Creatinine [Mass/Vol] 0.51 mg/dL 0.50 - 1.20 mg/dL [facility] GFR/1.73 sq M.predicted CKD-EPI (S/P/Bld) [Vol rate/Area] - PINF [facility] Comment on above: Reported eGFR is bas ed on the CKD-EPI 2020 equation using creatinine, age, and sex. Glucose [Mass/Vol] 98 mg/dL 70 - 99 mg/dL [facility] Osmolality Calc [Osmolality] 283 [facility] Potassium [Moles/Vol] 4.0 mmol/L 3.5 - 5.0 mmol/L [facility] Sodium [Moles/Vol] 137 mmol/L 135 - 145 mmol/L [facility] Urea nitrogen [Mass/Vol] 2 mg/dL Low 7 - 25 mg/dL [facility] Urea nitrogen/Creatinine [Mass ratio] 4 mg/mg [facility] MAGNESIUMon 05-25-2022 Magnesium [Mass/Vol] 1.8 mg/dL 1.6 - 2 .6 mg/dL [facility] No Panel Informationon 05-25 Interpretation and review of laboratory results Abnormal [facility] Interpretation and review of laboratory results Normal [facility] PHOSPHATE, INORGANICon 05-25 Phosphate [Mass/Vol] 3.2 mg/dL 2.2 - 4 .6 mg/dL [facility] CALCIUMon 05-24-2022 Calcium [Mass/Vol] 7.9 mg/dL Low 8.6 - 10. 5 mg/dL [facility] CBC,PLATELETSon 05-24-2022 Erythrocyte distribution width (RBC) [Ratio] 13.2 % 10.8 - 14.9 % [facility] Hematocrit (Bld) [Volume fraction] 33.0 % Low 34.9 - 44.3 % [facility] Hemoglobin (Bld) [Mass/Vol] 10.4 g/dL Low 11.4 - 15.2 g/dL [facility] Interpretation and review of laboratory results Abnormal [facility] MCH (RBC) [Entitic mass] 27.2 pg 25.9 - 33.9 pg [facility] MCHC (RBC) [Mass/Vol] 31.5 g/dL 31.4 - 35.9 g/dL [facility] MCV (RBC) [Entitic vol] 86.2 fL 79.6 - 97.7 fL [facility] Platelet mean volume (Bld) [Entitic vol] 9.7 fL 8.5 - 12.2 fL [facility] Platelets (Bld) [#/Vol] 270 10*3/uL 150 - 393 K/uL [facility] RBC (Bld) [#/Vol] 3.83 10*6/uL Low [facility] WBC (Bld) [#/Vol] 13.10 10*3/uL High 3.99 - 11 .19 K/uL [facility] CHEM 7 (LYTES,BUN,CREA,GLUC) on 05-24-2022 Anion gap [Moles/Vol] 10 mmol/L 7 - 17 mmol/L [facility] Chloride [Moles/Vol] 105 mmol/L 98 - 10 8 mmol/L [facility] CO2 [Moles/Vol] 24 mmol/L 21 - 31 mmol/L [facility] Creatinine [Mass/Vol] 0.51 mg/dL 0.50 - 1.20 mg/dL [facility] GFR/1.73 sq M.predicted CKD-EPI (S/P/Bld) [Vol rate/Area] - PINF [facility] Comment on above: Reported eGFR is bas ed on the CKD-EPI 2020 equation using creatinine, age, and sex. Glucose [Mass/Vol] 121 mg/dL High 70 - 99 mg/dL [facility] Osmolality Calc [Osmolality] 281 [facility] Potassium [Moles/Vol] 4.1 mmol/L 3.5 - 5.0 mmol/L [facility] Sodium [Moles/Vol] 135 mmol/L 135 - 145 mmol/L [facility] Urea nitrogen [Mass/Vol] 2 mg/dL Low 7 - 25 mg/dL [facility] Urea nitrogen/Creatinine [Mass ratio] 4 mg/mg [facility] MAGNESIUMon 05-24-2022 Interpretation and review of laboratory results Normal [facility] Magnesium [Mass/Vol] 1.7 mg/dL 1.6 - 2 .6 mg/dL [facility] No Panel Informationon 05-24 Interpretation and review of laboratory results Abnormal [facility] PHOSPHATE, INORGANICon 05-24 Phosphate [Mass/Vol] 2.1 mg/dL Low 2.2 - 4 .6 mg/dL [facility] CALCIUMon 05-23-2022 Calcium [Mass/Vol] 8.0 mg/dL Low 8.6 - 10. 5 mg/dL [facility] Interpretation and review of laboratory results Abnormal [facility] CBC,PLATELETSon 05-23-2022 Erythrocyte distribution width (RBC) [Ratio] 13.0 % 10.8 - 14.9 % [facility] Hematocrit (Bld) [Volume fraction] 38.4 % 34.9 - 44.3 % [facility] Hemoglobin (Bld) [Mass/Vol] 12.3 g/dL 11.4 - 15.2 g/dL [facility] Interpretation and review of laboratory results Abnormal [facility] MCH (RBC) [Entitic mass] 26.8 pg 25.9 - 33.9 pg [facility] MCHC (RBC) [Mass/Vol] 32.0 g/dL 31.4 - 35.9 g/dL [facility] MCV (RBC) [Entitic vol] 83.7 fL 79.6 - 97.7 fL [facility] Platelet mean volume (Bld) [Entitic vol] 9.6 fL 8.5 - 12.2 fL [facility] Platelets (Bld) [#/Vol] 354 10*3/uL 150 - 393 K/uL [facility] RBC (Bld) [#/Vol] 4.59 10*6/uL [facility] WBC (Bld) [#/Vol] 12.80 10*3/uL High 3.99 - 11 .19 K/uL [facility] CHEM 7 (LYTES,BUN,CREA,GLUC) Ordered By: Shraddha Munguia on 05-23-2022 Anion gap [Moles/Vol] 13 mmol/L 7 - 17 mmol/L [facility] Chloride [Moles/Vol] 103 mmol/L 98 - 10 8 mmol/L [facility] CO2 [Moles/Vol] 24 mmol/L 21 - 31 mmol/L [facility] Creatinine [Mass/Vol] 0.68 mg/dL 0.50 - 1.20 mg/dL [facility] GFR/1.73 sq M.predicted CKD-EPI (S/P/Bld) [Vol rate/Area] - PINF [facility] Comment on above: Reported eGFR is bas ed on the CKD-EPI 2020 equation using creatinine, age, and sex. Glucose [Mass/Vol] 148 mg/dL High 70 - 99 mg/dL [facility] Interpretation and review of laboratory results Abnormal [facility] Osmolality Calc [Osmolality] 285 [facility] Potassium [Moles/Vol] 4.9 mmol/L 3.5 - 5.0 mmol/L [facility] Sodium [Moles/Vol] 135 mmol/L 135 - 145 mmol/L [facility] Urea nitrogen [Mass/Vol] 4 mg/dL Low 7 - 25 mg/dL [facility] Urea nitrogen/Creatinine [Mass ratio] 6 mg/mg [facility] MAGNESIUMon 05-23-2022 Magnesium [Mass/Vol] 2.5 mg/dL 1.6 - 2 .6 mg/dL [facility] No Panel Informationon 05-23 Interpretation and review of laboratory results Normal [facility] PHOSPHATE, INORGANICon 05-23 Phosphate [Mass/Vol] 2.7 mg/dL 2.2 - 4 .6 mg/dL [facility] BETA HCG, URINE (POC DEVICE) on 05-22-2022 Beta HCG ( test) Ql (U) Negative Negative [facility] Interpretation and review of laboratory results Normal [facility] Test performed at address of the patient encounter. [facility] CALCIUMon 05-22-2022 Calcium [Mass/Vol] 7.8 mg/dL Low 8.6 - 10. 5 mg/dL [facility] CBC,PLATELETSon 05-22-2022 Erythrocyte distribution width (RBC) [Ratio] 12.7 % 10.8 - 14.9 % [facility] Hematocrit (Bld) [Volume fraction] 37.0 % 34.9 - 44.3 % [facility] Hemoglobin (Bld) [Mass/Vol] 12.0 g/dL 11.4 - 15.2 g/dL [facility] Interpretation and review of laboratory results Abnormal [facility] MCH (RBC) [Entitic mass] 26.3 pg 25.9 - 33.9 pg [facility] MCHC (RBC) [Mass/Vol] 32.4 g/dL 31.4 - 35.9 g/dL [facility] MCV (RBC) [Entitic vol] 81.0 fL 79.6 - 97.7 fL [facility] Platelet mean volume (Bld) [Entitic vol] 9.5 fL 8.5 - 12.2 fL [facility] Platelets (Bld) [#/Vol] 350 10*3/uL 150 - 393 K/uL [facility] RBC (Bld) [#/Vol] 4.57 10*6/uL [facility] WBC (Bld) [#/Vol] 17.70 10*3/uL High 3.99 - 11 .19 K/uL [facility] CHEM 7 (LYTES,BUN,CREA,GLUC) on 05-22-2022 Anion gap [Moles/Vol] 16 mmol/L 7 - 17 mmol/L [facility] Chloride [Moles/Vol] 103 mmol/L 98 - 10 8 mmol/L [facility] CO2 [Moles/Vol] 21 mmol/L 21 - 31 mmol/L [facility] Creatinine [Mass/Vol] 0.56 mg/dL 0.50 - 1.20 mg/dL [facility] GFR/1.73 sq M.predicted CKD-EPI (S/P/Bld) [Vol rate/Area] - [facility] Comment on above: Reported eGFR is bas ed on the CKD-EPI 2020 equation using creatinine, age, and sex. Glucose [Mass/Vol] 133 mg/dL High 70 - 99 mg/dL [facility] Osmolality Calc [Osmolality] 285 [facility] Potassium [Moles/Vol] 3.9 mmol/L 3.5 - 5.0 mmol/L [facility] Sodium [Moles/Vol] 136 mmol/L 135 - 145 mmol/L [facility] Urea nitrogen [Mass/Vol] 6 mg/dL Low 7 - 25 mg/dL [facility] Urea nitrogen/Creatinine [Mass ratio] 11 mg/mg [facility] CONTINUOUS CARDIAC MONITORIN G STRIPon 05-22-2022 [facility] CONTINUOUS CARDIAC MONITORIN G STRIPOrdered By: Unassigned Pacs on 05-22-2022 [facility] Work Phone: HEPATIC FUNCTION PANELon Albumin [Mass/Vol] 3.8 g/dL 3.5 - 5.0 g/dL [facility] ALP [Catalytic activity/Vol] 54 U/L 32 - 126 U/L [facility] ALT [Catalytic activity/Vol] 17 U/L 9 - 48 U/L [facility] AST [Catalytic activity/Vol] 23 U/L 10 - 39 U/L [facility] Bilirubin [Mass/Vol] 0.5 mg/dL NINF - 1.5 mg/dL [facility] Bilirubin.direct [Mass/Vol] 0.2 mg/dL NINF - 0.3 mg/dL [facility] Protein [Mass/Vol] 6.3 g/dL Low 6.4 - 8.3 g/dL [facility] MAGNESIUMon 05-22-2022 Magnesium [Mass/Vol] 1.4 mg/dL Low 1.6 - 2 .6 mg/dL [facility] No Panel Informationon 05-22 ABO/RH(D) TYPE Positive [facility] BLOOD COMPONENT TYPE Red Cells, Leukoreduced [facility] EXPIRATION DATE [facility] Product ABO/RH(D) Positive [facility] Product ABO/RH(D) NUMBER [id number] [facility] PRODUCT CODE [id number] [facility] UNIT STATUS released [facility] Interpretation and review of laboratory results Abnormal [facility] PHOSPHATE, INORGANICon 05-22 Interpretation and review of laboratory results Normal [facility] Phosphate [Mass/Vol] 3.3 mg/dL 2.2 - 4 .6 mg/dL [facility] POC ARTERIAL BLOOD GASon Base excess Calc (Bld) [Moles/Vol] -2.1000 mmol/L -3.0 - 3.0 mmol/L [facility] Calcium.ionized (Bld) [Mass/Vol] 4.22 mg/dL Low 4.60 - 5.30 mg/dL [facility] CO2 (Bld) [Partial pressure] 33 mm[Hg] [facility] Glucose [Mass/Vol] 127 mg/dL High 70 - 99 mg/dL [facility] HCO3 (Bld) [Moles/Vol] 22 mmol/L 22 - 28 mmol/L [facility] Hematocrit (Bld) [Volume fraction] 34.5 % 34.2 - 45.6 % [facility] Hemoglobin (Bld) [Mass/Vol] 11.3 g/dL Low 11.4 - 15.2 g/dL [facility] Interpretation and review of laboratory results Abnormal [facility] Lactate [Moles/Vol] 1.2 mmol/L 0.5 - 1. 6 mmol/L [facility] Oxygen (Bld) [Partial pressure] 230 mm[Hg] High [facility] Oxygen saturation in Blood 99 % [facility] pH (Bld) 7.42 [pH] 7.35 - 7.45 [facility] Potassium [Moles/Vol] 3.6 mmol/L 3.5 - 5.0 mmol/L [facility] Sodium [Moles/Vol] 137 mmol/L 135 - 145 mmol/L [facility] Specimen source Nom (Unsp spec) Arterial [facility] Test performed at address of the patient encounter. [facility] Base excess Calc (Bld) [Moles/Vol] 0.0 mmol/L -3.0 - 3.0 mmol/L [facility] Calcium.ionized (Bld) [Mass/Vol] 4.56 mg/dL Low 4.60 - 5.30 mg/dL [facility] CO2 (Bld) [Partial pressure] 38 mm[Hg] [facility] Glucose [Mass/Vol] 138 mg/dL High 70 - 99 mg/dL [facility] HCO3 (Bld) [Moles/Vol] 24 mmol/L 22 - 28 mmol/L [facility] Hematocrit (Bld) [Volume fraction] 34.7 % 34.2 - 45.6 % [facility] Hemoglobin (Bld) [Mass/Vol] 11.3 g/dL Low 11.4 - 15.2 g/dL [facility] Interpretation and review of laboratory results Abnormal [facility] Oxygen (Bld) [Partial pressure] 197 mm[Hg] High [facility] Oxygen saturation in Blood 99 % [facility] pH (Bld) 7.42 [pH] 7.35 - 7.45 [facility] Potassium [Moles/Vol] 3.4 mmol/L Low 3.5 - 5.0 mmol/L [facility] Sodium [Moles/Vol] 138 mmol/L 135 - 145 mmol/L [facility] Specimen source Nom (Unsp spec) Arterial [facility] Test performed at address of the patient encounter. [facility] PREPARE TO TRANSFUSE OR RED BLOOD CELLSon 05-22-2022 UNIT NUMBER [id number] [facility] UNIT NUMBER [id number] [facility] PROTIME-INRon 05-22-2022 INR Coag (Bld) [Relative time] 1.2 {INR} High 0.9 - 1.1 [facility] Interpretation and review of laboratory results Abnormal [facility] PT Coag (PPP) [Time] 14.8 s High [facility] TYPE AND SCREENon 05-22-2022 ABO/RH(D) TYPE Positive [facility] XR Abdomen Single viewon IMPRESSION: Appropriate position [...] of the nasogastric tube in the stomach. [facility] Radiology Study observation (narrative) [facility] Abdomen Single viewOrdere d By: Debora Burciaga on 05-22-2022 [facility] Work Phone: PREG HCG QUALon 04-08-2022 , QUAL Negative Normal NEGATIVE [facility] Comment on above: Performed By: #### P REG #### [facility] [address] [address] [address] Esthela Stevens Covid-19 [facility] ([facility]on 03-19 SARS-CoV-2 (COVID-19) RNA JORGE LUIS+probe Ql (Unsp spec) Not detected Normal NOT DETECTED [facility] Comment on above: Result Comment: This test is not yet approved or cleared by the [place] FDA. When there are no FDA-approved or cleared tests available, and other criteria are met, FDA can make tests available under an emergency access mechanism called an Emergency Use Authorization (EUA). The EUA for this test is supported by the Mental Health Associate of Health and Human Service's (HHS's) declaration [...] By: #### L IVER, LDH, BMP #### [facility] [address] [place], [place] [address] Abdomen and Pelvis [...] error, please notify the sender immediately at [phone] and permanently delete the original report and [...] error, please notify the sender immediately at [phone] and permanently delete the original report and destroy any copies or printouts. [facility] CT Abdomen and Pelvis W cont rast IVOrdered By: Avinash Miller on 04-01-2022 [facility] CT Chest W contrast Jason IMPRESSION: 1. [...] 1. No evidence for intrathoracic metastatic disease [facility] CT Chest W contrast IVOrdere d By: Yovany Bills on 03-31-2022 [facility] Work Phone: No Panel Informationon 03-31 Radiology Study observation (narrative) [facility] CBC AND ELECTRONIC DIFFon Basophils (Bld) [#/Vol] 0.05 10*3/uL 0.00 - 0.15 K/uL [facility] Basophils/100 WBC (Bld) 0.6 % [facility] Differential cell count method Nom (Bld) Electronic Differential [facility] Eosinophils (Bld) [#/Vol] 0.07 10*3/uL 0.00 - 0.42 K/uL [facility] Eosinophils/100 WBC (Bld) 0.8 % [facility] Erythrocyte distribution width (RBC) [Ratio] 13.4 % 10.8 - 14.9 % [facility] Hematocrit (Bld) [Volume fraction] 37.9 % 34.9 - 44.3 % [facility] Hemoglobin (Bld) [Mass/Vol] 11.9 g/dL 11.4 - 15.2 g/dL [facility] Immature granulocytes (Bld) [#/Vol] 0.04 10*3/uL <=0.08 [facility] Immature granulocytes/100 WBC (Bld) 0.5 % [facility] Interpretation and review of laboratory results Abnormal [facility] Lymphocytes (Bld) [#/Vol] 2.33 10*3/uL 1.16 - 3.51 K/uL [facility] Lymphocytes/100 WBC (Bld) 27.4 % [facility] MCH (RBC) [Entitic mass] 26.3 pg 25.9 - 33.9 pg [facility] MCHC (RBC) [Mass/Vol] 31.4 g/dL 31.4 - 35.9 g/dL [facility] MCV (RBC) [Entitic vol] 83.8 fL 79.6 - 97.7 fL [facility] Monocytes (Bld) [#/Vol] 0.46 10*3/uL 0.22 - 0.87 K/uL [facility] Monocytes/100 WBC (Bld) 5.4 % [facility] Neutrophils (Bld) [#/Vol] 5.55 10*3/uL 1.64 - 7.28 K/uL [facility] Nucleated RBC/100 WBC (Bld) [Ratio] 0.0 % <=0.2 /100 WBC [facility] Platelet mean volume (Bld) [Entitic vol] 10.0 fL 8.5 - 12.2 fL [facility] Platelets (Bld) [#/Vol] 402 10*3/uL High 150 - 393 K/uL [facility] RBC (Bld) [#/Vol] 4.52 10*6/uL [facility] Segmented neutrophils/100 WBC (Bld) 65.3 % [facility] WBC (Bld) [#/Vol] 8.50 10*3/uL 3.99 - 11. 19 K/uL [facility] COMPREHENSIVE METABOLIC PANE Shamir 03-19-2022 Albumin [Mass/Vol] 4.5 g/dL 3.5 - 5.0 g/dL [facility] ALP [Catalytic activity/Vol] 67 U/L 32 - 126 U/L [facility] ALT [Catalytic activity/Vol] 15 U/L 9 - 48 U/L [facility] Anion gap [Moles/Vol] 16 mmol/L 7 - 17 mmol/L [facility] AST [Catalytic activity/Vol] 14 U/L 10 - 39 U/L [facility] Bilirubin [Mass/Vol] 0.4 mg/dL <1.5 [facility] Calcium [Mass/Vol] 9.8 mg/dL 8.6 - 10. 5 mg/dL [facility] Chloride [Moles/Vol] 100 mmol/L 98 - 10 8 mmol/L [facility] CO2 [Moles/Vol] 27 mmol/L 21 - 31 mmol/L [facility] Creatinine [Mass/Vol] 0.66 mg/dL 0.50 - 1.20 mg/dL [facility] GFR/1.73 sq M.predicted CKD-EPI (S/P/Bld) [Vol rate/Area] >90 >=60 mL/min/1.73m2 [facility] Comment on above: Reported eGFR is bas ed on the CKD-EPI 2020 equation using creatinine, age, and sex. Glucose [Mass/Vol] 73 mg/dL 70 - 99 mg/dL [facility] Osmolality Calc [Osmolality] 287 [facility] Potassium [Moles/Vol] 3.6 mmol/L 3.5 - 5.0 mmol/L [facility] Protein [Mass/Vol] 7.4 g/dL 6.4 - 8.3 g/dL [facility] Sodium [Moles/Vol] 139 mmol/L 135 - 145 mmol/L [facility] Urea nitrogen [Mass/Vol] 10 mg/dL 7 - 25 mg/dL [facility] Urea nitrogen/Creatinine [Mass ratio] 15 mg/mg [facility] PT,INR,PTTon 03-19-2022 aPTT Coag (PPP) [Time] 36.5 s High [facility] INR Coag (Bld) [Relative time] 1.2 {INR} High [facility] Interpretation and review of laboratory results Abnormal [facility] PT Coag (PPP) [Time] 14.6 s High [facility] CBC AUTO DIFFon 02-03-2022 BASO # 0.1 103/ul Normal 0.0-0.1 [facility] Comment on above: Performed By: #### L IVER, LDH, BMP #### [facility] [address] [place] [address] Dr. Esthela Stevens Basophils/100 WBC (Bld) 0.5 % Normal 0.2-2.0 [facility] Comment on above: Performed By: #### L IVER, LDH, BMP #### [facility] [address] [place] [address] Dr. Esthela Stevens EO # 0.1 103/ul Normal 0.0-0.7 [facility] Comment on above: Performed By: #### L IVER, LDH, BMP #### [facility] [address] [place] [address] Dr. Esthela Stevens Eosinophils/100 WBC (Bld) 1.2 % Normal 0.9-7.0 [facility] Comment on above: Performed By: #### L IVER, LDH, BMP #### [facility] [address] [place] [address] Dr. Esthela Stevens Erythrocyte distribution width (RBC) [Ratio] 13.2 % Normal 11.0-15.0 [facility] Comment on above: Performed By: #### L IVER, LDH, BMP #### [facility] [address] [place] [address] Dr. Esthela Stevens Hematocrit (Bld) [Volume fraction] 38.4 % Normal 36.0-48.0 [facility] Comment on above: Performed By: #### L IVER, LDH, BMP #### [facility] [address] [place] [address] Dr. Esthela Stevens Hemoglobin (Bld) [Mass/Vol] 12.2 g/dL Normal 12.0-16.0 [facility] Comment on above: Performed By: #### L IVER, LDH, BMP #### [facility] [address] [place] [address] Dr. Esthela Stevens IG # 0.06 10e3/ul Critically high 0.00-0.03 [facility] Comment on above: Performed By: #### L IVER, LDH, BMP #### [facility] [address] [place] [address] Dr. Esthela Stevens IG % 0.6 % Critically high 0.0-0.5 [facility] Comment on above: Performed By: #### L IVER, LDH, BMP #### [facility] [address] [place] [address] Dr. Esthela Stevens LYMPH # 2.1 103/ul Normal 1.2-3.8 [facility] Comment on above: Performed By: #### L IVER, LDH, BMP #### [facility] [address] [place] [address] Dr. Esthela Stevens Lymphocytes/100 WBC (Bld) 21.7 % Normal 20.5-60.0 [facility] Comment on above: Performed By: #### L IVER, LDH, BMP #### [facility] [address] [place] [address] Dr. Esthela Stevens MANUAL DIFF REQ NO Normal [facility] Comment on above: Performed By: #### L IVER, LDH, BMP #### [facility] [address] [place] [address] Dr. Esthela Stevens MCH (RBC) [Entitic mass] 26.5 pg Critically low 26.7-34.0 [facility] Comment on above: Performed By: #### L IVER, LDH, BMP #### [facility] [address] [place] [address] Dr. Esthela Stevens MCHC (RBC) [Mass/Vol] 31.8 g/dL Normal 29.9-35.2 [facility] Comment on above: Performed By: #### L IVER, LDH, BMP #### [facility] [address] [place] [address] Dr. Esthela Stevens MCV (RBC) [Entitic vol] 83.5 fL Normal 81.0-99.0 [facility] [facility] Comment on above: Performed By: #### L IVER, LDH, BMP #### [facility] [address] [place] [address] Dr. Esthela Stevens MONO # 0.7 103/ul Normal 0.3-0.8 [facility] Comment on above: Performed By: #### L IVER, LDH, BMP #### [facility] [address] [place] [address] Dr. Esthela Stevens Monocytes/100 WBC (Bld) 7.5 % Normal 1.7-12.0 [facility] Comment on above: Performed By: #### L IVER, LDH, BMP #### [facility] [address] [place] [address] Dr. Esthela Stevens NEUT # 6.8 103/ul Critically high 1.4-6.5 [facility] Comment on above: Performed By: #### L IVER, LDH, BMP #### [facility] [address] [place] [address] Dr. Esthela Stevens Neutrophils/100 WBC (Bld) 68.5 % Normal 43.0-75.0 [facility] Comment on above: Performed By: #### L IVER, LDH, BMP #### [facility] [address] [place] [address] Dr. Esthela Stevens Platelet mean volume (Bld) [Entitic vol] 9.4 fL Critically low 9.5-13.5 [facility] Comment on above: Performed By: #### L IVER, LDH, BMP #### [facility] [address] [place] [address] Dr. Esthela Stevens PLT 403 103/ul Normal 150-450 [facility] Comment on above: Performed By: #### L IVER, LDH, BMP #### [facility] [address] [place] [address] Dr. Esthela Stevens RBC 4.60 106/ul Normal 4.20-5.40 [facility] Comment on above: Performed By: #### L IVER, LDH, BMP #### [facility] [address] [place] [address] Dr. Esthela Stevens WBC 9.9 103/ul Normal 4.0-11.0 [facility] Comment on above: Performed By: #### L IVER, LDH, BMP #### [facility] [address] ABD/PELV W CONon [...] CAROLYN WALSH Date: 2022-02-03 12:14 Normal [facility]on [facility]16 SARS-CoV-2 (COVID-19) RNA JORGE LUIS+probe Ql (Unsp spec) Not detected Normal NOT DETECTED [facility] Comment on above: Result Comment: When [...] for this test is supported by the [place] of Health and Human Service's declaration that [...] By: #### L IVER, LDH, BMP #### [facility] [address] [place] [address] Dr. Esthela Stevens ER URINE PROFILEon 2 Bilirubin Ql (U) Negative Normal NEGATIVE [facility] Comment on above: Performed By: #### E RUR, UMICRO #### [facility] [address] [place] [address] Dr. Esthela Stevens Clarity (U) CLEAR Normal CLEAR [facility] Comment on above: Performed By: #### E RUR, UMICRO #### [facility] [address] [place] [address] Dr. Esthela Stevens Color (U) LT. YELLOW Normal YELLOW [facility] Comment on above: Performed By: #### E RUR, UMICRO #### [facility] [address] [place] [address] Dr. Esthela Stevens ERUD A micrscopic examination will be performed if indicated. Normal [facility] Comment on above: Performed By: #### E RUR, UMICRO #### [facility] [address] [place] [address] Dr. Esthela Stevens Glucose Ql (U) Negative Normal NEGATIVE [facility] Comment on above: Performed By: #### E RUR, UMICRO #### [facility] [address] [place] [address] Dr. Esthela Stevens Hemoglobin Ql (U) Negative Normal NEGATIVE [facility] Comment on above: Performed By: #### E RUR, UMICRO #### [facility] [address] [place] [address] Dr. Esthela Stevens Ketones Ql (U) Negative Normal NEGATIVE [facility] Comment on above: Performed By: #### Toñito SANCHEZ UMICRO #### [facility] [address] [place] [address] Dr. Esthela Stevens LEUKOCYTES SMALL Abnormal NEGATIVE [facility] Comment on above: Performed By: #### MERISSA WALLACEICRO #### [facility] [address] [place] [address] Dr. Esthela Stevens Nitrite Ql (U) Negative Normal NEGATIVE [facility] Comment on above: Performed By: #### ERUM WALLACERO #### [facility] [address] [place] [address] Dr. Esthela Stevens pH (U) 7.0 [pH] Normal 5-9 [facility] Comment on above: Performed By: #### ERUM WALLACERO #### [facility] [address] [place] [address] Dr. Esthela Stevens SPEC GRAVITY 1.015 Normal 1.005-<=1.025 [facility] Comment on above: Performed By: #### ERUM WALLACERO #### [facility] [address] [place] [address] Dr. Esthela Stveens UA PROTEIN Negative Normal NEGATIVE/ TRACE [facility] Comment on above: Performed By: #### ERUM WALLACERO #### [facility] [address] [place] [address] Dr. Esthela Stevens UR MICRO IND INDICATED Normal [facility] Comment on above: Performed By: #### Toñito SANCHEZ UMICRO #### [facility] [address] [place] [address] Dr. Esthela Stevens Urobilinogen Qn (U) 0.2 {Emeka'U}/dL Normal 0.2 - 1. 0 [facility] Comment on above: Performed By: #### ERUM WALLACERO #### [facility] [address] [place] [address] Dr. Esthela Stevens LACTATE/LACTIC ACIDon 2021 Lactate [Moles/Vol] 1.3 mmol/L Normal 0.4-1.9 [facility] Comment on above: Performed By: #### P REG #### [facility] [address] [address] [address] Esthela Stevens LIPASEon 02-03-2022 Lipase [Catalytic activity/Vol] 58.0 U/L Critically low 73.0-393.0 [facility] Comment on above: Performed By: #### L IPA, CMP #### [facility] [address] [address] [address] Esthela Stevens PREG HCG QUALon 02-03-2022 , QUAL Negative Normal NEGATIVE [facility] Comment on above: Performed By: #### L IVER, LDH, BMP #### [facility] [address] [place] [address] Dr. Esthela Stevens PROF 14(COMP METB)on 022 Albumin [Mass/Vol] 3.8 g/dL Normal 3.4-5.0 [facility] Comment on above: Performed By: #### L IPA, CMP #### [facility] [address] [place] [address] Dr. Esthela Stevens Albumin/Globulin [Mass ratio] 1.0 {ratio} Normal [facility] Comment on above: Performed By: #### L IPA, CMP #### [facility] [address] [address] [address] Esthela Stevens ALP [Catalytic activity/Vol] 75 U/L Normal 46-116 [facility] Comment on above: Performed By: #### L IPA, CMP #### [facility] [address] [address] [address] Esthela Stevens ALT [Catalytic activity/Vol] 37 U/L Normal 14-59 [facility] Comment on above: Performed By: #### L IPA, CMP #### [facility] [address] [place] [address] Dr. Esthela Stevens Anion gap [Moles/Vol] 14.0 mmol/L Normal [facility] Comment on above: Performed By: #### L IPA, CMP #### [facility] [address] [address] [address] Esthela Stevens AST [Catalytic activity/Vol] 14 U/L Critically low 15-37 [facility] Comment on above: Performed By: #### L IPA, CMP #### [facility] [address] [address] [address] Esthela Stevens Bilirubin [Mass/Vol] 0.2 mg/dL Normal 0.2-1.0 [facility] Comment on above: Performed By: #### L IPA, CMP #### [facility] [address] [address] [address] Esthela Stevens Calcium [Mass/Vol] 8.9 mg/dL Normal 8.5-10.1 [facility] Comment on above: Performed By: #### L IPA, CMP #### [facility] [address] [address] [address] Esthela Stevens Chloride [Moles/Vol] 103 mmol/L Normal 98-107 [facility] Comment on above: Performed By: #### L IPA, CMP #### [facility] [address] [address] [address] Esthela Stevens CO2 [Moles/Vol] 25.2 mmol/L Normal 21.0-32.0 [facility] Comment on above: Performed By: #### L IPA, CMP #### [facility] [address] [address] [address] Esthela Stevens Creatinine [Mass/Vol] 0.72 mg/dL Normal 0.55-1.02 [facility] Comment on above: Performed By: #### L IPA, CMP #### [facility] [address] [address] [address] Esthela Stevens EGFR-AF LIBYAN >60 Normal >=60 [facility] Comment on above: Performed By: #### L IPA, CMP #### [facility] [address] [address] [address] Esthela Stevens EGFR-NON AF LIBYAN >60 Normal >=60 [facility] Comment on above: Performed By: #### L IPA, CMP #### [facility] [address] [address] [address] Esthela Stevens Globulin (S) [Mass/Vol] 3.7 g/dL Normal [facility] Comment on above: Performed By: #### L IPA, CMP #### [facility] [address] [address] [address] Esthela Stevens Glucose [Mass/Vol] 101 mg/dL Normal 74-106 [facility] Comment on above: Performed By: #### L IPA, CMP #### [facility] [address] [address] [address] Esthela Stevens Potassium [Moles/Vol] 4.2 mmol/L Normal 3.5-5.1 [facility] Comment on above: Performed By: #### L IPA, CMP #### [facility] [address] [place] [address] Dr. Esthela Stevens Protein [Mass/Vol] 7.5 g/dL Normal 6.4-8.2 [facility] Comment on above: Performed By: #### L IPA, CMP #### [facility] [address] [place] [address] Dr. Esthela Stevens Sodium [Moles/Vol] 138 mmol/L Normal 136-145 [facility] Comment on above: Performed By: #### L IPA, CMP #### [facility] [address] [place] [address] Dr. Esthela Stevens Urea nitrogen [Mass/Vol] 11.0 mg/dL Normal 7.0-18.0 [facility] Comment on above: Performed By: #### L IPA, CMP #### [facility] [address] [place] [address] Dr. Esthela Stevens Urea nitrogen/Creatinine [Mass ratio] 15.3 mg/mg Normal [facility] Comment on above: Performed By: #### L IPA, CMP #### [facility] [address] [place] [address] Dr. Esthela Stevens URINE MICROSCOPIC ONLYon BACTERIA NONE SEEN Normal NONE SEEN [facility] Comment on above: Performed By: #### Toñito SANCHEZ UMICRO #### [facility] [address] [place] [address] Dr. Esthela Stevens Bacteria identified Cx Nom (U) NOT INDICATED Normal [facility] Comment on above: Performed By: #### Toñito SANCHEZ UMICRO #### [facility] [address] [place] [address] Dr. Esthela Stevens CAST NONE SEEN Normal NONE SEEN [facility] Comment on above: Performed By: #### Toñito SANCHEZ UMICRO #### [facility] [address] [place] [address] Dr. Esthela Stevens Crystals LM Nom (Urine sed) NONE SEEN Normal NONE SEEN [facility] Comment on above: Performed By: #### Toñito SANCHEZ UMICRO #### [facility] [address] [place] [address] Dr. Esthela Stevens Epithelial cells LM Ql (Urine sed) FEW Abnormal NONE SEEN /RARE [facility] Comment on above: Performed By: #### Toñito SANCHEZ UMICRO #### [facility] [address] [place] [address] Dr. Esthela Stevens MUCOUS NONE SEEN Normal NONE SEEN [facility] Comment on above: Performed By: #### Toñito SANCHEZ UMICRO #### [facility] [address] [place] [address] Dr. Esthela Stevens RBC 0-2 Normal 0-2 [facility] Comment on above: Performed By: #### Toñito SANCHEZ UMICRO #### [facility] [address] [place] [address] Dr. Esthela Stevens WBC 2-5 Abnormal NONE SEEN [facility] Comment on above: Performed By: #### Toñito SANCHEZ UMICRO #### [facility] [address] [place] [address] Dr. Esthela Stevens Test, Urineon Beta HCG ( test) Ql (U) Negative [employer] Other Urinalysis - AUTOMATEDon Appearance (U) clear [employer] Other Bilirubin Ql (U) Negative [employer] Other Color (U) yellow [employer] Other Glucose Ql (U) Negative [employer] Other Hemoglobin Ql (U) Negative [employer] Other Ketones Ql (U) 15 [employer] Other Leukocyte esterase Test strip Ql (U) Negative [employer] Other Nitrite Ql (U) Negative [employer] Other pH (U) 7.0 [pH] [employer] Other Protein Ql (U) Negative [employer] Other Specific gravity (U) [Rel density] 1.020 [employer] Other Urobilinogen (U) [Mass/Vol] 0.2 mg/dL [employer] Other Urinalysis - AUTOMATED [employer] Other Coding Summary.on 02-18-2021 Coding Summary. CD:[id number] G h0bWw+PGhlYWQ+BK8CRYG gW88jtKIhuZ2CS0mIZD8P YVZBRVLNQA1JCH8dxMZ0V TnjF7DqsxPd YyybnYEjUK22NRc2ATE1a UkiYArowY1jnIBxQ1e3Eh PrIK43cD72JFjiJNIzKiK 3LjZpbjsgbWFy N5chYxZzeKGzThk+PHRhY mxlIHdpZHRoPScxMDAlJy BjoKptJK8nCu3cECAaHRQ vbGxhcHNlOiBj t9vdFETpVHicJA5gjFbxV 9LlrLK7UBPpb9g3Av13xV I+FSAoBVQ8zTjjJAsjn75 5SaAyy0eqFZR6 kSQaTXnnDMI2O43ok0V3R GUcGESfHKZ5uPU3cC2wiY ilmkihK7ZgiQItGnE4HTH 7eLHavC4xqDua cvxulM9pYpz+Y87BGI7DC BZDXI2OMkk3Y6YzEeyloS I+QL63TWDvZW09oMYwsMW qf2jumNo5DfAx CHWiHCF2nHoaVKmkd4BqH LYyV45zmUOao4V9SWOfhT vvdTKnLmLzvQP8fU7xBXk pfidev8dqnblh Bpovb5qxog35pL56N05uO DdlCYAmUSB5XHTeUAHrdY uhql5fbE2zQp5+CWnph6h zz8ynjWq8IkYj CXFrdnCgbMdnCVW3p4ZeJ g31X9WcsJrqq9IoYfi4hr 92hLPfn1V2rSW7ZNjgAND bwA5aEKkkQoX2 GZSlGcGyvP89xGDhPOziX d5hxUvhbZkvIW9vEJOdgz wqEBWqoC4yZGWfdSGgiUd kGK2mDPVoytok z774ZtFeUJD3CCJtiLJcE 7SgdR9vOmUsZHSjGQWnK9 CbwMQvNYvpN492ZAmlNdN 1DBTasaTiC8Rz KMQfeAknQlU7i7W5Bg9Kj 2DjzrdrFJG8ODqhPWV9Bt WyYtLuBxQ7W5AtXgs7GHF kqFhoCG6sS5Sg YCKnobmzbehtsZD9RZYfE UAwsF45iFQmFQicOm0bb7 Y0t900CXLcDERblZ01Ae9 udDogMTBwdCBU eQ7qyikbt8kvbrveJdIzF SIwFQh3KTf6RFDfnFakCp WcLFO1QkU7INS8gXWnhY9 jaPmqamuedV3r Oyc+G16hxZ9nIQF9ZEU3q kmzQELmqmVyXZ35OY35L9 RyPjwvdGFibGU+PGRpdiB qkSobIY1yHzPs j9gve0VhNQblR3WgQAEiG UfgBhh9AHZtXFC6zKB4hI 5jOMPiFXgdl2I5xGF6Z9R xghSorw3yw5vu IDGjGHwwT24rkMEvo3D5Y KQzbVV6LXCtcLrlRhMyvF 93Oyc+WBTiqNqbh2PpEcu qg7tok1vxrEl4 ErHeJGGmgzFxsZjjQBI5o 5RdJx13I12lOYejGXBcSU FlVSWyTCBrcYltsv0byL3 wIi8+PGNvbCB3 rVT7wD9sKYHeZaB9WWcrP 971WfEarEVoCnqet4dzc2 uiyEq9CxHdWQVfxoSfqYx xVMX9g1CbNh49 B95cOYnzUTBiTBGzNCRoB HOtqJnoqd5wtH4yPf9+PC 5bd3ufeu38dO11qGQ+PHR oCJC7qZfpYWkw ZVQicN3pEUdsPtK5ELBtZ iEahY92eOIxZXmpKy7xsK hxrWvjLN0jKDLpbmsfg36 0AwDrf6ttADHy tQGwURwaLAV1G03kg6X8P KAiCOPoZIU3dTK6bR3eqQ lnbjogbGVmdDsgdmVydGl gTQydDRvrR336 IHRvcDsnPlBhdGllbnQgT rKfJMw1R5VoZut8ATAqjW huTR6vpIFrDVqmQd8zuXa mmAkuYU7qAWFy vsgoj510CxQfz7xnXZQyv XPkKKntSWB6U83cw6O3EZ ZqBXMmWQZ9mKI7nV8awEe nbjogbGVmdDsg hdYtrUmdRWsiTFemA807G HRvcDsnPkJpcnRoIERhdG R6RD14DF56lVPon8I3fPQ 2G7LzUTQwlqxo hbikmGN6UKFfJEYmpA97L m5ezEcuSg2tPMKjGZX1ZM HqcVPmO5OioC9kIcGpNFY gCZOiE1FcoVIf FUtbJ742YPpuSpR2EEThq mLoE4XjLFPvaMmhKhV9o0 P7Sm5DM3U7AX85PY05oMA nd0B0xJS3F6Zq NNOaenwtjfqseFI2ILBtH PRaeZ15Gc0khWntIb9gCR QiFDC3NCEmzDHaO3MxaM0 yOiAjMDAwMDAw Y1MuoYYtMVoqQ677WBpoO qO8KNBtgtKqJ5JrFORbmK xuGjM3s4K7Mt2ACDw8ZF1 9VE08uAGck2R1 lDA0L8BeBTPtumluykqtu GQ2JVEyFZFakZ69Yl6fiZ hgOs7dMVInUWP2XJOveTQ lG6JfyD1nCnNr EEQeUZWeS5AqsJXwMUydG 635FGekZyG3MNWqdpGyL9 MpIHWoqXswPeD6m7B2It3 SSFAbTT81ERB1 xBP3YT11BC02H8PvYzpuu GFibGU+PHRhYmxlIHdpZH RoPScxMDAlJyBzdHlsZT0 yHm6zEPHwFTHl oYosgXTbRhEsf8bdXKTjA ZcgSF6iiTjfA9EfvXG7FK Ocj2t0Qn09X78gX3XgcKZ +QIPhvHK7qMH0 nY7xLbCkKoD7OGhaE636E gYamRZmUflzr6amr6ymkW c3AiP9ZNMmhpJxmCqsNFB 3x0ZzIl47Y59t IHdpZHRoPSIxNSUiIHZhb Dlyve5wjT3gOq7+PGNvbC F0nNA1cX9lHrXsZjM3PHf zI347ZoYztAEj Cannq9vqf5amsVq3HbIwP GNfntIuwLabEUA6d3DjNg 87F8QewPkdt6CjWhw8xm2 4wNVwo9X6gAG3 M4VsYOZdudlutWUfvKplE U5aXJXrqkkvRWGejD4kVN OeP7e5KtKhJiQ7PPmjG3B xhnK6FLQidJEl WObxFXY1Q23pi1N9XHJmW OJnDST5uXP1fQ4ceWycbq ogbGVmdDsgdmVydGljYWw eYZpaL949MQUl jTulHPRxiL3nUCWcqHCcz VdhPR8mHFBdrfatAyfZAU pUIajvQ1VAWRNPWPe7G9G eDng8DDQanKhs QQ8kkCOkAQfuNo9jrTxmb XrtXL1jWJWzzeuiGDVylZ 0oPUGjuIUqwZykSW3dYFI yzxcjv307AeMz UNN5CMOveTSrQ4StwI3kL nFsLNQwPGJlN2UwqODxBT wkK068ERmtWuA4RSGyeqJ mM3UnQNVyeYkv HeY0o1J9Qm5iVS1bTG2oO Hf1SC54NT78eFSan5O0uC P7P9UlAQJumlwjfnqhoWP 4TAMvMMCatF48 cSFxMYhbLp8ky5I8z035E WNdXVKgzI75Sk5ooMneFB VunIKMtU1lyuuwe0yvvfx gIzAwMDAwMDt0 DUx1TKVtlKtiGgInUDS9V gZ7KRA4nZLfnC9xnQpgpg nyjB0nDkg+MjMgWWVhcnM 9M0XyHcd8ZMXn eLumZS8gbNOxEOykEh7fj LugjCyaZF4oVKNersyfZE BkdF2nRALdbJTieVhdKA3 pRSHycjloi317 VfBtRGS2FNKpnVGsP3Xsn M0fQrLkNLRsBMEkX9ZliB EoMSghL963BLmyYzN1WJR isuQvP8XeMHUp gSqjQyP2o3P7Zn4VCE3xo QK8F1ScQqw7ZXGgwSgsZS 2fmQTyFNigAi7ghVfbsNx nBB2sCLYaqyoe XWBsoH3wJCHodQCmxXehP O7ePUAojftid861ZiRwPO F7JFDozWKqQ6MdjL0dEqQ jGNWtBMPqK8Fa hKSgPVxbU576BScuEgC0N WSltpCpN7IxJHAgnRlsTl H3q7N4Ct6RyFLnZ6MdF6w 1Z9UmNnckmPO+ KO28USOzCE99qUKpuEKbl 7nbaVf0QiPzJIMyVLP4mH fxVLism4BvKDOiV10toUZ dp0A1XUUfsVan hGZaIsYvvWK9hB4qZLbih nvva9kpasczYwkfv1waby 81rA57W31lIJjlBOZuYHI zMCUiIHZhbGln xq2zmY0eAi9+VWBylGW0r CI2aS4hNlWaWvE8TXmiU5 43JvLesXDqXinld7mdg4x ykPe5QeRyIWIb tfLytYpaSIU4n7RcCy03Y 29sIHdpZHRoPSIyMCUiIH UngFzibi6itX6lKt9+PC9 sf9snqr81bB46 dHI+PIWsBUY8hDctEPntN KUcuB6iCNdzJoS0AMFoNr YjhI45lYJfBDdjFs9nkAt yoRjwJS4kGGWi sozjl060LoBpj2saDKGok HNcJHwdWYW7M18lp2V2UE BeUUOuWGR7qKE2bL0ayWz nbjogbGVmdDsg fdBdlLxaKYllQHcvG631J CTbjQucKwDcpFKoQ8ntkx KGOI0sQbthcPC+PHRkIHN 0eWxlPSdwYWRk qD6eLEQxI4o0FxBdYrA3W GjgV1PpzaD9AKHfjRSbXF GhxXGDbX7cuwxzx3biion gIzAwMDAwMDt0 FDa9RZYbzXajEbUlWIS3S rR6NZM5rYRpzL1vjKsyla ijaA5hOyv+RklOOjwvdGQ +JTGkKLS0vNsm PImlNFCufV2eRZEtA5i2L gCnMdM5YXhoC9TwcbD6CY MiwETwAZYnpTMFqD1tmfq ou2sweywfRmEm UTVrPFs2IHb0LZOibEvmY sYaFZX4ImS6FOT2dZCriD 1daDjkasqqpY9tRov+TVJ OOjwvdGQ+PHRk QMX3zQjtUUjbUMWwvO5lP ZDpT1y5CrRoWiA2MEydU5 WmirU7JXQjgAXdZKDqxES JgY1ulsalr1gl apvcHhHjVUGiXPi2SSv2E DTbpNiqYeZrGQR2DrT3KL S2lJAbyY9bjTynhpsekE6 wOyc+UKF8JVJ1 UC18NW65M6ZmSlyssRDlj +PHRhYmxlIHdpZHRoPS zxEDXqRkCawMnvPS4fDn7 yZGVyLWNvbGxh cHNl (more content not included)... [facility] Consent for Treatmenton Consent for Treatment [id number] .[id number]:127 [facility] Discharge Instructionson Discharge Instructions [id number]# 1.00CD:127 [facility] ED Clinical Summaryon 2020 ED Clinical Summary [address] [address] ED Clinical Summary Person Information Name: ZAINAB MCCLURE[place] Age: 25 Years : 1995 Sex: Female Language: Georgian PCP: ERIN SAMS CNP Marital Status: Single [...] 02/17/2021 11:52:53 02/17/2021 11:52:53 ADDRESS: [address] [place] [id number] PHYS DOC NOTES: MEDICAL INFORMATION: Prescriptions Given: New Medications Printed Prescriptions lorazepam (Ativan 1 mg Tab) 1 Tablets By Mouth every 8 hours for 2 Days. Take one by mouth every eight hours as needed. Refills: 0. PATIENT EDUCATION INFORMATION: Instructions: Suicidal Feelings: How to Help Yourself; Managing Anxiety, Adult Follow up: With: Address: When: [facility] In 1 day 02/18/2021 With: Address: When: ERIN SAMS [address] [facility] [facility] [place] [phone] Business (1) In 3 days DIAGNOSIS: Anxiety; Suicidal ideation Normal [facility] ED Note-Physicianon 02-18-20 ED Note-Physician Basic [...] q8hr Follow-up With When Contact Information [facility] In 1 day 02/18/2021 EDT Additional Instructions: ERIN SAMS In 3 days [address] [facility] [facility] [facility] [place] [place] [address] [phone] Business (1) Additional Instructions: Patient Education Suicidal Feelings: How to Help Yourself Managing Anxiety, Adult Problem List/Past Medical History Ongoing No qualifying data Historical No qualifying data Medications Inpatient No active inpatient medications Home No active home medications Allergies No Known Medication Allergies Lab Results No qualifying data available. Diagnostic Results No qualifying data available. Normal [facility] Comment on above: Result Comment: Elec [...] services (911 in the [place] ? The [facility] and human services helpline (211 in the [place] ? Go to your nearest emergency department. ? Call a suicide hotline to speak with a trained counselor. The following suicide hotlines are available in the [place]: ? 4-550-726-TALK ( ). ? 8-243-MMZMXHC ( ). ? . This is a hotline for Armenian speakers. ? . This is a hotline for TTY users. ? 3-033-0-U-RAMILA ( ). This is a hotline for lesbian, escobar, bisexual, transgender, or questioning youth. ? For a list of hotlines in [place], visit www.suicide.org/hotli eliseo/international/can uuo-zmsgria-muugkuae. html ? Contact a crisis center or [...] even if you do not feel sociable. Uhoy-jm-nwnu conversation is best to help them understand [...] can help you feel better. ? Take nuty-ldz-cokcyuj and prescription medicines only as told by [...] Lifeline: www.suicideprevention lifeline.org ? Hopeline: www.hopeline.com ? [employer] for Suicide Prevention: www.afsp.org ? The Ramila Project (for lesbian, escobar, bisexual, transgender, or questioning youth): www.thetrevorproject. org Contact a health care provider if: ? You feel as though you are a burden to others. ? You feel agitated, angry, vengeful, or have extreme mood swings. ? You have withdrawn from family and friends. Get (more content not included)... Normal [facility] ED Patient Summaryon 021 ED Patient Summary [place] [id number] Patient Discharge Instructions Person Information Name: ZAINAB MCCLURE Age: 25 Years Arrival Date: 02/17/2021 09:42:11 Discharge Diagnosis: Anxiety; Suicidal ideation Primary Care Physician: ERIN SAMS CNP Provider Information Primary Provider: Carol Childers DO Advanced Printer Maintainer:None The exam and treatment you received in the Emergency Department were for an urgent problem and are not intended as complete care. It is important that you follow up with a doctor, nurse practitioner, or physician?s care management assistant for ongoing care. If your symptoms become worse or you do not improve as expected and you are unable to reach your usual health care provider, you should return to the Emergency Department. We are available 24 hours a day. ZAINAB MCCLURE has been given the following list of patient education materials, prescriptions and follow-up instructions: Follow-up Instructions: With: Address: When: [facility] In 1 day 02/18/2021 With: Address: When: ERIN LATRELL [address] [place] [phone] Business (1) In 3 days In the [...] opioids can be used to help relieve zqnavwtq-mt-hqsgax pain and are often prescribed following a [...] care professio (more content not included)... Normal [facility] Valuables Checkliston 2020 Valuables Checklist [id number]# [id number] [facility] Vital Signs Date Time Vital Sign Value Performing Clinician Facility 04-13-2024 18:10-0400 Diastolic blood pressure 74 mm[Hg] Andreas Ortega MD, MPH Work Phone: [facility] 04-13-2024 18:10-0400 Heart rate 72 /min Andreas Ortega MD, MPH Work Phone: [facility] 04-13-2024 18:10-0400 Systolic blood pressure 133 mm[Hg] Andreas Ortega MD, MPH Work Phone: [facility] 02-07-2024 12:49-0400 Diastolic blood pressure 76 mm[Hg] Yudelka Moralez [employer] Work Phone: [facility] 02-07-2024 12:49-0400 Heart rate 58 /min Yudelka Moralez [employer] Work Phone: [facility] 02-07-2024 12:49-0400 Systolic blood pressure 124 mm[Hg] Yudelka Moralez [employer] Work Phone: [facility] 02-07-2024 08:42-0400 Blood Pressure Location Cortez Sarmini [facility] 02-07-2024 08:42-0400 Diastolic blood pressure 70 mm[Hg] Cortez Sarmini [facility] 02-07-2024 08:42-0400 Heart rate 70 /min Cortez Sarmini [facility] 02-07-2024 08:42-0400 Respiratory rate 18 /min Cortez Sarmini [facility] 02-07-2024 08:42-0400 Systolic blood pressure 116 mm[Hg] Cortez Sarmini [facility] 01-06-2024 15:06-0400 Body height 155 cm Carol Summers MD, PhD Work Phone: [facility] 01-06-2024 15:06-0400 Body mass index (BMI) [Ratio] 29.57 kg/m2 Carol Summers MD, PhD Work Phone: [facility] 01-06-2024 15:06-0400 Body temperature 97.9 [degF] Carol Summers MD, PhD Work Phone: [facility] 01-06-2024 15:06-0400 Body weight 71.03 kg Carol Summers MD, PhD Work Phone: [facility] 01-06-2024 15:06-0400 Diastolic blood pressure 77 mm[Hg] Carol Summers MD, PhD Work Phone: [facility] 01-06-2024 15:06-0400 Heart rate 65 /min Carol Summers MD, PhD Work Phone: [facility] 01-06-2024 15:06-0400 Respiratory rate 16 /min Carol Summers MD, PhD Work Phone: [facility] 01-06-2024 15:06-0400 SaO2% (BldA) [Mass fraction] 99 % Carol Summers MD, PhD Work Phone: [facility] 01-06-2024 15:06-0400 Systolic blood pressure 125 mm[Hg] Carol Summers MD, PhD Work Phone: [facility] 11-26-2023 09:32-0400 Body height 154.9 cm Dolores Johnson [employer] Work Phone: [facility] 11-26-2023 09:32-0400 Body mass index (BMI) [Ratio] 30.61 kg/m2 Dolores Johnson [employer] Work Phone: [facility] 11-26-2023 09:32-0400 Body weight 73.48 kg Dolores Johnson [employer] Work Phone: [facility] 11-26-2023 09:32-0400 Diastolic blood pressure 76 mm[Hg] Dolores Johnson [employer] Work Phone: [facility] 11-26-2023 09:32-0400 Heart rate 65 /min Dolores Johnson [employer] Work Phone: [facility] 11-26-2023 09:32-0400 Respiratory rate 16 /min Dolores Johnson [employer] Work Phone: [facility] 11-26-2023 09:32-0400 SaO2% (BldA) [Mass fraction] 98 % Dolores Johnson [employer] Work Phone: [facility] 11-26-2023 09:32-0400 Systolic blood pressure 110 mm[Hg] Dolores Johnson [employer] Work Phone: [facility] 08-24-2023 10:09-0500 Body mass index (BMI) [Ratio] 32.44 kg/m2 Ron Alden DO Work Phone: [facility] 08-24-2023 10:09-0500 Body weight 83.06 kg Ron Alden DO Work Phone: [facility] 08-24-2023 10:09-0500 Diastolic blood pressure 68 mm[Hg] Ron Alden DO Work Phone: [facility] 08-24-2023 10:09-0500 Systolic blood pressure 110 mm[Hg] Ron Alden DO Work Phone: [facility] 03-11-2023 09:53-0400 Body height 154.9 cm Daya Vigil [employer] Work Phone: [facility] 12-10-2022 12:07-0400 Body height 155.2 cm Archie Hugo MD, PhD Work Phone: [facility] Comment on above: without shoes 12-10-2022 12:07-0400 Body mass index (BMI) [Ratio] 30.64 kg/m2 Archie Hugo MD, PhD Work Phone: [facility] 12-10-2022 12:07-0400 Body temperature 97.81 [degF] Archie Hugo MD, PhD Work Phone: [facility] 12-10-2022 12:07-0400 Body weight 73.8 kg Archie Hugo MD, PhD Work Phone: [facility] Comment on above: without shoes 12-10-2022 12:07-0400 Diastolic blood pressure 72 mm[Hg] Archie Hugo MD, PhD Work Phone: [facility] 12-10-2022 12:07-0400 Heart rate 77 /min Archie Hugo MD, PhD Work Phone: [facility] 12-10-2022 12:07-0400 Respiratory rate 14 /min Archie Hugo MD, PhD Work Phone: [facility] 12-10-2022 12:07-0400 SaO2% (BldA) [Mass fraction] 99 % Archie Hugo MD, PhD Work Phone: [facility] Comment on above: room air 12-10-2022 12:07-0400 Systolic blood pressure 118 mm[Hg] Archie Hugo MD, PhD Work Phone: [facility] 10-22-2022 13:57-0400 Body height 154.9 cm Rebekah Suero MD Work Phone: [facility] 10-22-2022 13:57-0400 Body mass index (BMI) [Ratio] 30.33 kg/m2 Rebekah Suero MD Work Phone: [facility] 10-22-2022 13:57-0400 Body temperature 97.59 [degF] Rebekah Suero MD Work Phone: [facility] 10-22-2022 13:57-0400 Body weight 72.8 kg Rebekah Suero MD Work Phone: [facility] 10-22-2022 13:57-0400 Diastolic blood pressure 62 mm[Hg] Rebekah Suero MD Work Phone: [facility] 10-22-2022 13:57-0400 Heart rate 62 /min Rebekah Suero MD Work Phone: [facility] 10-22-2022 13:57-0400 Respiratory rate 20 /min Rebekah Suero MD Work Phone: [facility] 10-22-2022 13:57-0400 SaO2% (BldA) [Mass fraction] 99 % Rebekah Suero MD Work Phone: [facility] 10-22-2022 13:57-0400 Systolic blood pressure 119 mm[Hg] Rebekah Suero MD Work Phone: [facility] 10-22-2022 10:19-0400 Body height 157.5 cm Yudelka Moralez [employer] Work Phone: [facility] 10-22-2022 10:19-0400 Body mass index (BMI) [Ratio] 28.66 kg/m2 Yudelka Moralez [employer] Work Phone: [facility] 10-22-2022 10:19-0400 Body weight 71.1 kg Yudelka Moralez [employer] Work Phone: [facility] 10-22-2022 10:19-0400 Diastolic blood pressure 76 mm[Hg] Yudelka Moralez [employer] Work Phone: [facility] 10-22-2022 10:19-0400 Systolic blood pressure 126 mm[Hg] Yudelka Moralez [employer] Work Phone: [facility] 10-22-2022 07:38-0400 Body height 157.5 cm Yudelka Moralez [employer] Work Phone: [facility] 10-22-2022 07:38-0400 Diastolic blood pressure 76 mm[Hg] Yudelka Moralez [employer] Work Phone: [facility] 10-22-2022 07:38-0400 Heart rate 73 /min Yudelka Moralez [employer] Work Phone: [facility] 10-22-2022 07:38-0400 Systolic blood pressure 126 mm[Hg] Yudelka Moralez [employer] Work Phone: [facility] 10-07-2022 11:05-0400 Body height 157.5 cm Yudelka Moralez [employer] Work Phone: [facility] 10-07-2022 11:05-0400 Body mass index (BMI) [Ratio] 28.66 kg/m2 Yudelka Moralez [employer] Work Phone: [facility] 10-07-2022 11:05-0400 Body temperature 98.2 [degF] Yudelka Moralez [employer] Work Phone: [facility] 10-07-2022 11:05-0400 Body weight 71.08 kg Yudelka Moralez [employer] Work Phone: [facility] 10-07-2022 11:05-0400 Diastolic blood pressure 74 mm[Hg] Yudelka Moralez [employer] Work Phone: [facility] 10-07-2022 11:05-0400 Heart rate 81 /min Yudelka Moralez [employer] Work Phone: [facility] 10-07-2022 11:05-0400 Respiratory rate 16 /min Yudelka Moralez [employer] Work Phone: [facility] 10-07-2022 11:05-0400 SaO2% (BldA) [Mass fraction] 99 % Yudelka Moralez [employer] Work Phone: [facility] 10-07-2022 11:05-0400 Systolic blood pressure 120 mm[Hg] Yudelka Moralez [employer] Work Phone: [facility] 08-19-2022 15:43-0500 Diastolic blood pressure 88 mm[Hg] Andreas Ortega MD, MPH Work Phone: 8(510)265-458527 [place] [address] 08-19-2022 15:43-0500 Systolic blood pressure 117 mm[Hg] Andreas Ortega MD, MPH Work Phone: 6(982)550-455527 [place] [address] 07-08-2022 07:50-0500 Body height 157.5 cm Andreas Ortega MD, MPH Work Phone: 9(148)316-476827 [place] [address] 07-08-2022 07:50-0500 Body mass index (BMI) [Ratio] 28.73 kg/m2 Andreas Ortega MD, MPH Work Phone: 1(693)053-451527 [place] [address] 07-08-2022 07:50-0500 Body temperature 98.01 [degF] Andreas Ortega MD, MPH Work Phone: 2(676)025-504127 [place] [address] 07-08-2022 07:50-0500 Body weight 71.26 kg Andreas Ortega MD, MPH Work Phone: 4(214)993-606627 [place] [address] 07-08-2022 07:50-0500 Diastolic blood pressure 77 mm[Hg] Andreas Ortega MD, MPH Work Phone: 3(629)522-053627 [place] [address] 07-08-2022 07:50-0500 Heart rate 73 /min Andreas Ortega MD, MPH Work Phone: 6(957)001-325927 [place] [address] 07-08-2022 07:50-0500 Respiratory rate 16 /min Andreas Ortega MD, MPH Work Phone: 2(714)232-970027 [place] [address] 07-08-2022 07:50-0500 SaO2% (BldA) [Mass fraction] 98 % Andreas Ortega MD, MPH Work Phone: 2(692)365-369727 [place] [address] 07-08-2022 07:50-0500 Systolic blood pressure 121 mm[Hg] Andreas Ortega MD, MPH Work Phone: 9(163)820-036727 [place] [address] 06-09-2022 13:10-0500 Body mass index (BMI) [Ratio] 29.3 kg/m2 Raina [facility] Work Phone: [facility] 06-09-2022 13:10-0500 Body temperature 98.6 [degF] [facility] Work Phone: [facility] 06-09-2022 13:10-0500 Body weight 72.67 kg Raina [facility] Work Phone: 4(976)992-717903 [address] 06-09-2022 13:10-0500 Diastolic blood pressure 60 mm[Hg] [facility] Work Phone: 5(752)549-684703 [address] 06-09-2022 13:10-0500 Heart rate 80 /min [facility] Work Phone: 0(343)818-624703 [address] 06-09-2022 13:10-0500 Respiratory rate 16 /[facility] Work Phone: 2(570)109-153465 [place] [address] 06-09-2022 13:10-0500 SaO2% (BldA) [Mass fraction] 98 % Raina [facility] Work Phone: [facility] 06-09-2022 13:10-0500 Systolic blood pressure 110 mm[Hg] [facility] Work [facility] 05-29-2022 07:32-0500 Body temperature 98.01 [degF] Archie Hugo MD, PhD Work Phone: [facility] 05-29-2022 07:32-0500 Diastolic blood pressure 64 mm[Hg] Archie Hugo MD, PhD Work Phone: [facility] 05-29-2022 07:32-0500 Heart rate 77 /min Archie Hugo MD, PhD Work Phone: [facility] 05-29-2022 07:32-0500 Respiratory rate 16 /min Archie Hugo MD, PhD Work Phone: [facility] 05-29-2022 07:32-0500 SaO2% (BldA) [Mass fraction] 99 % Archie Hugo MD, PhD Work Phone: [facility] 05-29-2022 07:32-0500 Systolic blood pressure 100 mm[Hg] Archie Hugo MD, PhD Work Phone: [facility] 05-22-2022 15:50-0400 Body height 157.5 cm Archie Hugo MD, PhD Work Phone: [facility] 05-22-2022 15:50-0400 Body mass index (BMI) [Ratio] 30.73 kg/m2 Archie Hugo MD, PhD Work Phone: [facility] 05-22-2022 15:50-0400 Body weight 76.2 kg Archie Hugo MD, PhD Work Phone: [facility] 03-31-2022 12:02-0400 Diastolic blood pressure 70 mm[Hg] [facility] [employer] Work Phone: [facility] 03-31-2022 12:02-0400 Systolic blood pressure 124 mm[Hg] [facility] [employer] Work Phone: [facility] 03-31-2022 11:53-0400 Body height 157.5 cm [facility] [employer] Work Phone: [facility] 03-19-2022 15:37-0400 Body height 158.3 cm Archie Hugo MD, PhD Work Phone: [facility] 03-19-2022 15:37-0400 Body mass index (BMI) [Ratio] 30.63 kg/m2 Archie Hugo MD, PhD Work Phone: [facility] 03-19-2022 15:37-0400 Body temperature 97.5 [degF] Archie Hugo MD, PhD Work Phone: [facility] 03-19-2022 15:37-0400 Body weight 76.75 kg Archie Hugo MD, PhD Work Phone: [facility] 03-19-2022 15:37-0400 Diastolic blood pressure 84 mm[Hg] Archie Hugo MD, PhD Work Phone: [facility] 03-19-2022 15:37-0400 Heart rate 90 /min Archie Hugo MD, PhD Work Phone: [facility] 03-19-2022 15:37-0400 Respiratory rate 16 /min Archie Hugo MD, PhD Work Phone: [facility] 03-19-2022 15:37-0400 SaO2% (BldA) [Mass fraction] 98 % Archie Hugo MD, PhD Work Phone: [facility] 03-19-2022 15:37-0400 Systolic blood pressure 128 mm[Hg] Archie Hugo MD, PhD Work Phone: [facility] 12-22-2021 18:05-0400 Body height 152.4 cm Ava Hooverault Other [employer] Other 12-22-2021 18:05-0400 Body mass index (BMI) [Ratio] 30.62 kg/m2 Ava Hooverault Other [employer] Other 12-22-2021 18:05-0400 Body temperature 99 [degF] Ava Tamika Other [employer] Other 12-22-2021 18:05-0400 Body weight 71.12 kg Ava Tamika Other [employer] Other 12-22-2021 18:05-0400 Diastolic blood pressure 89 mm[Hg] Ava Lundberg Other [employer] Other 12-22-2021 18:05-0400 Respiratory rate 16 /min Ava Lundberg Other [employer] Other 12-22-2021 18:05-0400 SaO2% (BldA) [Mass fraction] 99 % Ava Lundberg Other [employer] Other 12-22-2021 18:05-0400 Systolic blood pressure 129 mm[Hg] Ava Lundberg Other [employer] Other Encounters Encounter Date Encounter Type Care Provider Facility Start: 05-15-2024 End: 05-15-2024 Orders Only Not In System Ref Prov [facility] Start: 05-10-2024 End: 05-10-2024 Orders [facility] Comment on above: Colitis; Black stools Start: 05-03-2024 End: 05-03-2024 ambulatory NEUROPSYCHIATRIC AIDE-C Erin Sams Work Phone: [facility] Work Phone: Start: 05-03-2024 End: 05-03-2024 Departed Referred NEUROPSYCHIATRIC AIDE-C Erin Sams Work Phone: [facility] Start: 04-25-2024 ambulatory YUDELKA MORALEZ Facility:[facility] Start: 04-25-2024 End: 04-25-2024 Subsequent hospital visit by physician Yudelka Moralez [employer] Work Phone: [facility] Comment on above: Arrived Start: 04-19-2024 ambulatory ERIN SAMS [facility] Start: 04-13-2024 ambulatory ANDREASJANNY LUTHERDA Facility: [facility] Start: 04-13-2024 End: 04-13-2024 Subsequent hospital visit by physician Andreas Ortega MD, MPH Work Phone: [facility] [place] Comment on above: Arrived Start: 04-13-2024 End: 04-13-2024 ambulatory MAILE Danielle CHAKRABORTY [facility] Start: 04-12-2024 ambulatory YUDELKA [facility] Facility:[facility] Start: 04-11-2024 End: 04-11-2024 Telephone encounter Quin Kelly Division of Medical Oncology Comment on above: Change In Symptoms Start: 04-03-2024 End: 04-03-2024 Patient encounter procedure NEUROPSYCHIATRIC AIDE-C Erin Sams Work Phone: [facility]-Ultrasound Cntr for Breast Car Start: 04-03-2024 End: 04-03-2024 ambulatory NEUROPSYCHIATRIC AIDE-C Erin Sams Work Phone: [facility] Work Phone: Start: 03-13-2024 End: 03-13-2024 Telephone encounter Andreas Ortega MD, MPH Work Phone: Division of Medical Oncology Comment on above: Advice Only Start: 02-10-2024 ambulatory [facility] Facility:[facility] Start: 02-07-2024 ambulatory YE [facility] Facility:[facility] Start: 02-07-2024 ambulatory [facility] Facility:[facility] Start: 02-07-2024 End: 02-07-2024 Subsequent hospital visit by physician Yudelka Moralez [employer] Work Phone: Department of Radiology Comment on above: Arrived Start: 02-07-2024 End: 02-07-2024 ambulatory ERIN S LATRELL Facility:[facility] Start: 02-07-2024 End: 02-07-2024 Patient encounter procedure Diego Apodaca [facility] Start: 01-28-2024 ambulatory [facility] Facility:[facility] Start: 01-06-2024 End: 01-06-2024 Office outpatient visit 40 minutes Carol Summers MD, PhD Work Phone: Division of Medical Oncology Comment on above: 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); Diarrhea, unspecified type; Primary malignant neuroendocrine tumor of appendix; Carcinoid syndrome; Tachycardia; SOB (shortness of breath) Start: 01-06-2024 ambulatory CAROL SUMMERS Facility:[facility] Start: 12-30-2023 ambulatory ERIN SAMS Facility: [facility] Start: 11-26-2023 ambulatory [facility] Facility:[facility] Start: 11-26-2023 End: 11-26-2023 Office outpatient new 45 minutes Dolores Johnson [employer] Work Phone: [facility] Gastro[facility] [place] Comment on above: Elevated liver enzym es (Primary Dx) Start: 11-26-2023 ambulatory [facility] Facility:[facility] Start: 11-11-2023 End: 11-11-2023 ambulatory LIZBET CATS Not Available Start: 11-08-2023 ambulatory [facility] Facility:[facility] Start: 11-06-2023 End: 11-06-2023 Subsequent hospital visit by physician Andreas Ortega MD, MPH Work Phone: [facility] Comment on above: Arrived Start: 11-06-2023 ambulatory ANDREAS ORTEGA Facility: [facility] Start: 10-04-2023 End: 10-04-2023 ambulatory LIZBET CAST Not Available Start: 09-25-2023 End: 09-25-2023 ambulatory Ron Alden Facility:[facility] Start: 09-20-2023 End: 09-20-2023 ambulatory RON ALDEN [...] Available Start: 07-14-2023 End: 07-14-2023 ambulatory RON RUANO Not Available Start: 06-01-2023 End: 06-01-2023 ambulatory RON ALDEN Not Available Start: 03-11-2023 End: 03-11-2023 Clinical Support Encounter Archie Hugo MD, PhD Work Phone: Clinical Lab [facility] 1 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 Start: 03-11-2023 End: 03-11-2023 Subsequent hospital visit by physician Daya Vigil [employer] Work Phone: [facility] Comment on above: Arrived Start: 12-10-2022 [...] Subsequent hospital visit by physician Yudelka Moralez [employer] Work Phone: [facility] [place] Start: 10-22-2022 End: 10-22-2022 Subsequent hospital visit by physician Yudelka Moralez [employer] Work Phone: [facility] [place] Comment on above: Arrived Start: 10-07-2022 End: 10-07-2022 Office outpatient visit 25 minutes Yudelka Moralez [employer] Work Phone: Division of Medical Oncology Comment [...] medical examination without abnormal findings ERIN SAMS [facility] Start: 08-31-2022 End: 09-01-2022 ambulatory [...] visit by physician Yudelka OLEARY Work Phone: [facility] Comment on above: Arrived Start: 08-12-2022 End: [...] visit related to original px Raina Gomes APRN-[employer] Work Phone: Division of Surgical Oncology 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 [facility] Start: 04-04-2022 End: 04-05-2022 ambulatory ERIN SAMS Facility:[facility] Start: 04-04-2022 End: 04-05-2022 Encounter for preprocedural laboratory examination ERIN SAMS Facility:[facility] Start: 03-31-2022 End: 03-31-2022 Subsequent hospital visit by physician Raina Gomes APRN[employer] Work Phone: [facility] [place] Comment on above: Arrived Start: 03-19-2022 End: [...] 12-22-2021 End: 12-22-2021 ambulatory Ava Lundberg Other [employer] Other Start: 12-22-2021 Office outpatient vi sit 15 minutes Ava Lundberg [facility] Procedures Date Procedure Procedure Detail Performing Clinician Start: 05-03-2024 EGD / COLONOSCOPY Norah emerita Santos Delfino [employer] Work Phone: Start: 05-03-2024 Level i surg patholo gy gross examination only Not In System Ref Prov Start: 04-25-[address] atten uation skull base mid-thigh Yudelka Moralez [employer] Work Phone: Start: 04-13-2024 Ct abdomen & pelvis w/o contrst 1/> body re Andreas Ortega MD, MPH Work Phone: Start: 04-03-2024 Ultrasonography of b ilateral breasts NEUROPSYCHIATRIC AIDE-C Erin Sortomer Work Phone: Start: 03-11-2023 Mri abdomen w/o cont rast material Yudelka Moralez [employer] Work Phone: Start: 10-22-2022 Echo tthrc r-t 2d w/ wom-mode compl spec&colr d Yudelka Moralez [employer] Work Phone: Start: 10-22-2022 Ct soft tissue neck w/contrast material Yudelka Moralez [employer] Work Phone: Start: 10-22-2022 Ct thorax w/contrast material Yudelka Moralez [employer] Work Phone: Start: 10-07-2022 Natriuretic peptide Yudelka Moralez [employer] Work Phone: Start: 08-19-2022 Creatinine blood Marciano Ortega MD, MPH Work Phone: Start: 08-19-[address] atten uation skull base mid-thigh Yudelka Kirt [employer] Work Phone: Start: 05-29-2022 Assay of magnesium Dwaine Arnold MD Work Phone: Start: 05-28-2022 Assay of magnesium Dwaine Arnold MD Work Phone: Start: 05-27-2022 Assay of magnesium Dwaine Arnold MD Work Phone: Start: 05-27-2022 Partial resection of small bowel using robotic assistance Diego Apodaca Start: 05-27-2022 Right colectomy Erin Ruvalcabajeanmarieroxana Start: 05-26-2022 Assay of magnesium Dwaine Arnold [...] 03-31-2022 Ct thorax w/contrast material Raina Kelly [employer] Work Phone: Start: 03-19-2022 CBC AND ELECTRONIC DIFF Raina Kelly [employer] Work Phone: Start: 03-19-2022 Complete blood count with white cell differential, automated Raina Kelly [employer] Work Phone: Start: 03-19-2022 Comprehensive metabo lic panel Raina Kelly [employer] Work Phone: Start: 02-18-2022 Adult depression scr eening assessment Estela Sr RMA Start: 02-03-2022 Laparoscopic appendectomy Diego Apodaca section Diego Sa rmini Cholecystectomy Diego Ruvalcaba mini Plan of Treatment Date Care Activity Detail Author Start: 04-14-2025 Tobacco Screening Tobacco Screening [facility] Start: 04-13-2025 Adult BMI Screening Adult BMI Screening [facility] Start: 01-11-2025 End: 01-11-2025 Patient encounter procedure 01/11/2025 2:40 PM EDT Office Visit Division of Medical Oncology [address] [place] [address] Carol Summers MD, PhD [address] [place] [address] Division of Medical Oncology Start: 06-06-2024 End: 06-06-2024 Patient encounter procedure Division of Medical Oncology Start: 05-23-2024 End: 05-23-2024 Clinical Support Encounter Clinical Lab [facility] Start: 04-25-2024 End: 04-25-2024 Patient encounter procedure 04/25/2024 9:00 AM EDT Appointment Imaging [facility] [address] [place] [address] Yudelka Moralez, [employer]OT[employer]OR[employer] FORMER [address] [place], [place] [id number] [facility] Start: 04-13-2024 Subsequent hospital visit by physician 04/13/2024 7:00 PM EDT Hospital Encounter Imaging and Mammography [facility] [place] [address] [place] [address] Andreas Ortega MD, MPH [address] [facility] [address] [place] [address] Imaging [facility] M[facility] [place] Start: 04-12-2024 End: 04-12-2024 Patient encounter procedure 04/12/2024 9:30 AM EDT Appointment [facility] [address] [place] [phone] Yudelka Moralez, [employer] FORMER [address] [place], [place] [id number] [facility] Start: 04-11-2024 End: 04-11-2025 CT Abdomen and Pelvis WO and W contrast IV CT ABDOMEN/PELVIS WITH AND WITHOUT CONTRAST Imaging STAT Primary malignant neuroendocrine tumor of appendix Expected: 04/11/2024, Expires: 04/11/2025 [facility] Comment on above: Expected: 04/11/2024, Expires: Start: 03-19-2024 COVID-19 Vaccine ( season) COVID-19 Vaccine () [facility] Start: 03-19-2024 Influenza vaccination [facility] Start: 03-02-2024 End: 03-02-2024 Telemedicine consultation with patient 03/02/2024 9:00 AM EDT Telemedicine General and Gastrointestinal Surgery [facility] [address] [place] [address] Dolores Johnson, [employer] FORMER [address] [place] [address] General and Gastrointestinal Surgery [facility] Start: 02-10-2024 End: 02-10-2024 Patient encounter procedure 02/10/2024 11:00 AM EDT Office Visit Division of Medical Oncology [address] [place] [phone] Andreas Ortega MD, MPH [address] [place] [address] Division of Medical Oncology Start: 01-28-2024 End: 01-28-2024 Patient encounter procedure 01/28/2024 11:30 AM EDT Appointment Imaging [facility] [address] [facility] [address] [place] [phone] Yudelka Moralez, [employer] FORMER [address] [place] [address] Imaging [facility] Start: 01-28-2024 End: 01-28-2024 Clinical Support Encounter 01/28/2024 10:15 AM EDT Clinical Support Encounter Clinical Lab Isrrael Pearl 1 [address] [place] [phone] Andreas Ortega MD, MPH [address] [place] [phone] Clinical Lab Isrrael Kang 1 Start: 01-06-2024 End: 01-06-2024 Patient encounter procedure 01/06/2024 3:00 PM EDT Office Visit Division of Medical Oncology [address] [place] [address] Carol Summers MD, PhD [address] [place] [address] Division of Medical Oncology Start: 12-14-2023 End: 12-14-2023 Patient encounter procedure 12/14/2023 12:30 PM EDT Office Visit Cardiology Isrrael [facility] [address] [place] [address] Cheikh Coelho MD [address] [place] [address] Cardiology Isrrael [facility] 5 Start: 11-26-2023 End: 11-25-2024 [id number] PHENOTYPE [facility] Comment on above: Expected: 11/26/2023 (Approximate), Expi res: 11/25/2024 Start: 11-26-2023 End: 11-25-2024 HUNTER SCREEN IFA [facility] Comment on above: Expected: 11/26/2023 (Approximate), Expi res: 11/25/2024 Start: 11-26-2023 End: 11-25-2024 ANTI MITOCHONDRIAL ANTIBODY [facility] Comment on above: Expected: 11/26/2023 (Approximate), Expi res: 11/25/2024 Start: 11-26-2023 End: 11-25-2024 ANTI SMOOTH MUSCLE ANTIBODY [facility] Comment on above: Expected: 11/26/2023 (Approximate), Expi res: 11/25/2024 Start: 11-26-2023 End: 11-25-2024 MONOCLONAL PROT IMMUNO, SERUM [facility] Comment on above: Expected: 11/26/2023 (Approximate), Expi res: 11/25/2024 Start: 11-26-2023 End: 11-25-2024 T-TRANSGLUTAMINASE IGG/IGA, AB [facility] Comment on above: Expected: 11/26/2023, Expires: Start: 11-08-2023 End: 11-08-2023 Telemedicine consultation with patient 11/08/2023 11:00 AM EDT Telemedicine Division of Medical Oncology [address] [place] [phone] Yudelka Moralez, [employer]OT[employer] FORMER [address] [place] [address] Division of Medical Oncology Start: 10-28-2023 End: 10-28-2023 Patient encounter procedure 10/28/2023 1:00 PM EDT Office Visit General and Gastrointestinal Surgery [facility] [address] [place] [address] Kelton Cabrera Jr., MD [address] [place] [address] General and Gastrointestinal Surgery [facility] Start: 09-08-2023 End: 09-08-2023 Patient encounter procedure 09/08/2023 10:40 AM EST Routine [facility] [address] [facility] [place] [address] Ron Ruano DO [address] [facility] [address] [place] [id number] [facility] Start: 06-17-2023 End: 06-17-2023 Patient encounter procedure 06/17/2023 1:30 PM EST Office Visit Division of Surgical Oncology [address] [place] [address] Archie Hugo MD, PhD [address] [place] [address] Division of Surgical Oncology Start: 06-17-2023 End: 06-17-2023 Patient encounter procedure 06/17/2023 12:20 PM EST Appointment Imaging [facility] [address] [facility] [address] [place] [address] Archie Hugo MD, PhD [address] [place] [address] Imaging [facility] Start: 03-19-2023 Influenza vaccination [facility] Start: 03-17-2023 End: 03-17-2023 Patient encounter procedure Division of Medical Oncology Start: 03-11-2023 End: 03-11-2023 Patient encounter procedure 03/11/2023 Office Visit Surgical Oncology Archie Hugo MD, PhD [address] [place] [address] Division of Surgical Oncology Start: 03-11-2023 End: 03-11-2023 Patient encounter procedure Imaging [facility] Start: 02-18-2023 Depression Screening Depression [facility]ening [facility] Start: 12-22-2022 End: 12-22-2022 Patient encounter procedure 12/22/2022 Office Visit Cardiovascular Medicine Marisela Velásquez, [employer] FORMER [address] [place] [address] Cardiology [facility] Start: 12-17-2022 End: 12-17-2022 Patient encounter procedure 12/17/2022 Office Visit Oncology Andreas Ortega MD, MPH [address] [place] [address] Division of Medical Oncology Start: 12-10-2022 End: 12-11-2023 CT Abdomen and Pelvis W contrast IV CT ABDOMEN/PELVIS WITH CONTRAST Imaging Routine Primary malignant neuroendocrine tumor of appendix Expected: 12/10/2022, Expires: 12/11/2023 [facility] Comment on above: Expected: 12/10/2022, Expires: Start: 12-10-2022 End: 12-11-2023 CT Chest W contrast IV CT CHEST WITH CONTRAST Imaging Routine Primary malignant neuroendocrine tumor of appendix Expected: 12/10/2022, Expires: 12/11/2023 [facility] Comment on above: Expected: 12/10/2022, Expires: 4 Start: 12-10-2022 End: 12-10-2022 Patient encounter procedure Imaging [facility] Start: 12-07-2022 End: 06-09-2023 CT Abdomen and Pelvis W contrast IV CT ABDOMEN/PELVIS WITH CONTRAST Imaging Routine Primary malignant neuroendocrine tumor of appendix Expected: 12/07/2022, Expires: 06/09/2023 [facility] Comment on above: Expected: 12/07/2022, Expires: 3 Start: 11-05-2022 End: 11-05-2022 Patient encounter procedure 11/05/2022 Office Visit Oncology Andreas Ortega MD, MPH [address] [facility] [address] [place] [address] Division of Medical Oncology Start: 10-27-2022 End: 10-27-2022 Patient encounter procedure 10/27/2022 Office Visit Cardiovascular Medicine Cheikh Coelho MD [address] [place] [address] Cardiology [facility] Start: 10-27-2022 End: 10-27-2022 ambulatory 10/27/2022 Telemed Clin Support Genetics Erin Stoner, [facility] [address] [facility] [address] [place] [address] Division of Human Genetics Start: 10-21-2022 Subsequent hospital visit by physician 10/21/2022 Hospital Encounter Computerized Tomography Scan Yudelka Moralez APRN-SHEET METAL FORMER [address] [place] [address] Imaging [facility] Start: 10-21-2022 End: 10-21-2022 Patient encounter procedure 10/21/2022 Appointment Echocardiography Yudelka Moralez APRN-SHEET METAL FORMER [address] [place] [address] Heart and Vascular [facility] Start: 10-07-2022 End: 10-08-2023 CT Chest W contrast IV CT CHEST WITH CONTRAST Imaging Routine Carcinoid syndrome SOB (shortness of breath) Tachycardia Primary malignant neuroendocrine tumor of appendix Expected: 10/07/2022, Expires: 10/08/2023 [facility] Comment on above: Expected: 10/07/2022, Expires: 4 Start: 10-07-2022 End: 10-08-2023 CT Neck W contrast IV CT NECK WITH CONTRAST Imaging Routine Primary malignant neuroendocrine tumor of appendix Expected: 10/07/2022, Expires: 10/08/2023 [facility] Comment on above: Expected: 10/07/2022, Expires: 4 Start: 08-26-2022 End: 08-26-2022 Telemedicine consultation with patient 08/26/2022 Telemedicine Oncology Andreas Ortega MD, MPH [address] [facility] [address] [place] [phone] Division of Medical Oncology Start: 08-19-2022 End: 08-19-2022 Patient encounter procedure [facility] Start: 07-08-2022 End: 07-08-2023 Complete blood count with white cell differential, automated CBC, EDIF, PLATELET Lab Routine Primary malignant neuroendocrine tumor of appendix Expected: 07/08/2022, Expires: 07/08/2023 [facility] Comment on above: Expected: 07/08/2022, Expires: 3 Start: 07-08-2022 End: 07-08-2023 Comprehensive metabolic 2000 panel - Serum or Plasma COMPREHENSIVE METABOLIC PANEL Lab Routine Primary malignant neuroendocrine tumor of appendix Expected: 07/08/2022, Expires: 07/08/2023 [facility] Comment on above: Expected: 07/08/2022, Expires: 3 Start: 07-08-2022 End: 07-08-2023 CT Abdomen and Pelvis WO and W contrast IV CT ABDOMEN/PELVIS WITH AND WITHOUT CONTRAST Imaging Routine Primary malignant neuroendocrine tumor of appendix Expected: 07/08/2022, Expires: 07/08/2023 [facility] Comment on above: Expected: 07/08/2022, Expires: 3 Start: 07-08-2022 End: 07-08-2023 Lactate dehydrogenase [Enzymatic activity/volume] in Serum or Plasma LACTATE DEHYDROGENASE Lab Routine Primary malignant neuroendocrine tumor of appendix Expected: 07/08/2022, Expires: 07/08/2023 [facility] Comment on above: Expected: 07/08/2022, Expires: 3 Start: 07-08-2022 End: 07-08-2023 PT Skull base to mid-thigh NUC PET NEUROENDOCRINE Imaging Routine Primary malignant neuroendocrine tumor of appendix Expected: 07/08/2022, Expires: 07/08/2023 [facility] Comment on above: Expected: 07/08/2022, Expires: 3 Start: 07-08-2022 End: 07-08-2022 Patient encounter procedure 07/08/2022 Office Visit Oncology Andreas Ortega MD, MPH [address] [place] [address] Division of Medical Oncology Start: 07-06-2022 End: 07-06-2022 Telemedicine consultation with patient 07/06/2022 Telemedicine Surgical Oncology Raina Gomes APRN-CNP [address] [place] [address] [facility] [place] Start: 06-09-2022 End: 06-09-2022 Patient encounter procedure 06/09/2022 Office Visit Surgical Oncology Raina Gomes APRN-CNP [address] [place] [address] Division of Surgical Oncology Start: 04-21-2022 End: 04-21-2022 Evaluation and management of inpatient 04/21/2022 Surgery Multispecialty Archie Hugo MD, PhD [address] [place] [phone] COLECTOMY PARTIAL LAPAROSCOPIC [facility] Comment on above: COLECTOMY PARTIAL LAPAROSCOPIC Start: 04-21-2022 End: 04-21-2022 Laparoscopy colectomy partial w/anastomosis COLECTOMY PARTIAL LAPAROSCOPIC Primary malignant neuroendocrine tumor of appendix 04/21/2022 7:15 AM EDT [facility] Start: 04-21-2022 Evaluation and management of inpatient 04/21/2022 Hospital Encounter Multispecialty Archie Hugo MD, PhD [address] [place] [address] Primary malignant neuroendocrine tumor of appendix [facility] Comment on above: Primary malignant neuroendocrine tumor o f appendix Start: 03-19-2022 End: 03-19-2023 Colonoscopy flx dx w/collj spec when pfrmd DIAGNOSTIC COLONOSCOPY GI/Bronch STAT Primary malignant neuroendocrine tumor of appendix Expected: 03/19/2022, Expires: 03/19/2023 [facility] Comment on above: Expected: 03/19/2022, Expires: 3 Start: 03-19-2022 Influenza vaccination INFLUENZA VACCINE (#1) [facility] Start: 03-19-2022 End: 03-19-2023 TYPE AND SCREEN - PREADMISSION TYPE AND SCREEN - PREADMISSION Blood Bank Routine Primary malignant neuroendocrine tumor of appendix Expected: 03/19/2022, Expires: 03/19/2023 [facility] Work Phone: Comment on above: Expected: 03/19/2022, Expires: 3 Start: 07-10-2021 COVID-19 VACCINE (2 - Pfizer risk series) COVID-19 VACCINE (2 - Pfizer risk series) [facility] Start: 07-10-2021 COVID-19 VACCINE (2 - Pfizer series) COVID-19 VACCINE (2 - Pfizer series) [facility] Start: 08-14-2020 DTaP,Tdap and Td Vaccines (6 - Td or Tdap) DTaP,Tdap and Td Vaccines (6 - Td or Tdap) [facility] Start: 08-14-2020 Tetanus vaccination TETANUS [facility] Start: 2018 Screening for malignant neoplasm of cervix [facility] Start: 2016 Third diphtheria, tetanus and acellular pertussis (DTaP) vaccination TDAP (ADULT) [facility] Start: 2016 Zoster vaccine hzv live for subcutaneous use ZOSTER (SHINGLES) VACCINE (1 of 2) [facility] Start: 2015 Adult BMI Follow Up Plan Adult BMI Follow Up Plan [facility] Start: 2015 Tetanus vaccination TETANUS [facility] Start: 2013 Screening for Chlamydia trachomatis CHLAMYDIA SCREEN [facility] Start: 2012 HIV screening HIV SCREENING DISCUSSION [facility] Start: 02-11-2011 Vaccination for human papillomavirus HPV VACCINE ADOL (2 - 2-dose series) [facility] Start: 09-11-2010 Vaccination for human papillomavirus HPV VACCINE ADOL (2 - Risk 3-dose series) [facility] Start: 2008 Vaccination for human papillomavirus HPV VACCINE ADOL (1 - 2-dose series) [facility] Start: 2003 PNEUMOCOCCAL VACCINE SERIES (1 - PCV) PNEUMOCOCCAL VACCINE SERIES (1 - PCV) [facility] Start: 2003 PNEUMOCOCCAL VACCINE SERIES (1 of 2 - PCV) PNEUMOCOCCAL VACCINE SERIES (1 of 2 - PCV) [facility] Start: 1997 GONORRHEA SCREEN GONORRHEA SCREEN [facility] Start: 1997 Hepatitis C antibody, confirmatory test HEPATITIS C VIRUS SCREENING [facility] Start: 1997 Hepatitis C screening HEPATITIS C VIRUS SCREENING [facility] Start: 1997 Screening for Chlamydia trachomatis GONORRHEA SCREEN [facility] CHROMOGRANIN A CHROMOGRANIN A L ab Routine Primary malignant neuroendocrine tumor of appendix 03/11/2023 11:44 AM EDT [facility] Work Phone: End: 03-31-2022 CT Abdomen and Pelvis W contrast IV [facility] Work Phone: Comment on above: 1 Occurrences starting 03/31/2022 until 03/31/2022 End: 08-14-2022 CT Abdomen and Pelvis WO and W contrast IV [facility] Work Phone: Comment on above: 1 Occurrences starting 08/14/2022 until 08/14/2022 End: 11-06-2023 CT Abdomen and Pelvis WO and W contrast IV [facility] Comment on above: 1 Occurrences starting 11/06/2023 until 11/06/2023 End: 02-07-2024 CT Abdomen and Pelvis WO and W contrast IV [facility] Comment on above: 1 Occurrences starting 02/07/2024 until 02/07/2024 Ecg routine ecg w/le ast 12 lds trcg only w/o i&r AR ECG, TRACING ONLY AR - OFFICE PERFORMED Routine Primary malignant neuroendocrine tumor of appendix Ordered: 03/19/2022 [facility] Comment on above: Ordered: 03/19/2022 Echocardiography ECHOCARDIOGRAM Echocardiography Routine Carcinoid syndrome SOB (shortness of breath) Tachycardia Ordered: 10/07/2022 [facility] Comment on above: Ordered: 10/07/2022 Laparoscopy colectom y partial w/anastomosis COLECTOMY PARTIAL LAPAROSCOPIC Primary malignant neuroendocrine tumor of appendix [facility] End: 03-09-2023 Magnetic resonance imaging of abdomen and pelvis with contrast MRI ABDOMEN/PELVIS WITHOUT AND WITH CONTRAST Imaging Routine Primary malignant neuroendocrine tumor of appendix 1 Occurrences starting 03/09/2023 until 03/09/2023 [facility] Comment on above: 1 Occurrences starting 03/09/2023 until 03/09/2023 Removal of kike AR STAPLE REM OVAL AR - OFFICE PERFORMED Routine Primary malignant neuroendocrine tumor of appendix Ordered: 06/09/2022 [facility] Comment on above: Ordered: 06/09/2022 SURG PATH REQUEST [facility] Comment on above: Release Upon Ordering for 1 Occurrences starting 05/22/2022, 1 completed TRANSIENT ELASTOGRAPHY TRANSIENT ELASTOGRAPHY GI/Bronch Routine Elevated liver enzymes Ordered: 11/26/2023 [facility] Comment on above: Ordered: 11/26/2023 Immunizations Immunization Date Immunization Notes Care Provider Fa cility 06-19-2021 SARS-CoV-2 (COVID-19 ) mRNA BNT-162b2 vax Cortez Sarmini [facility] Comment on above: Result Comment: 2023: TPVALL 04-28-2021 influenza virus vacc ine, unspecified formulation Raina Eliseo [employer]OT[employer] FORMER Work Phone: [facility] Comment on above: Result Comment: 2023: NULL 08-28-2020 SARS-CoV-2 (COVID-19 ) mRNA-1273 vaccine Cortez Sarmini [facility] 07-31-2020 SARS-CoV-2 (COVID-19 ) mRNA-1273 vaccine Cortez Sarmini [facility] 08-14-2010 HPV, unspecified formulation Cortez Sarmini [facility] 08-14-2010 meningococcal ACWY vaccine, unspecified formulation Cortez Sarmini [facility] 08-14-2010 tetanus toxoid, redu shaheed diphtheria toxoid, and acellular pertussis vaccine, adsorbed Cortez Sarmini [facility] 04-03-2002 measles, mumps and rubella virus vaccine Cortez Sarmini [facility] 09-20-2000 DTaP, unspecified formulation Cortez Sarmini [facility] 09-20-2000 hepatitis B vaccine, pediatric or pediatric/adolescent dosage Cortez Sarmini [facility] 09-20-2000 Hib, unspecified formulation Cortez Sarmini [facility] 09-20-2000 measles, mumps and rubella virus vaccine Cortez Sarmini [facility] 09-20-2000 poliovirus vaccine, unspecified formulation Cortez Sarmini [facility] 1997 DTaP, unspecified formulation Cortez Sarmini [facility] 1997 Hib, unspecified formulation Cortez Sarmini [facility] 1997 poliovirus vaccine, unspecified formulation Cortez Sarmini [facility] 1997 DTaP, unspecified formulation Cortez Sarmini [facility] 1997 hepatitis B vaccine, pediatric or pediatric/adolescent dosage Cortez Sarmini [facility] 1997 Hib, unspecified formulation Cortez Sarmini [facility] 1997 poliovirus vaccine, unspecified formulation Cortez Sarmini [facility] 1997 hepatitis B vaccine, pediatric or pediatric/adolescent dosage Cortez Sarmini [facility] Payers Date Payer Category Payer Self-pay [id number] 2022 Unknown [id number] 2021 Commercial Managed C are - PPO PARAMOUNT [id number] 2021 Managed Care HMO (unspecified) PARAMOUNT HMO PARAMOUNT HMO [id number] 2021-Present [address] [place] [address] HMO [id number] 2021 Unknown PARAMOUNT NELIDA [employer]NT PREFERRED PPO [id number] 2021-Present [phone] [address] [place] [address] PPO [id number] 1997 Unknown [id number] 2.16.840.1.838232.3.579. 2.593 1997 Unknown [id number] 2.16.840.1.097217.3.579. 2.593 1997 Unknown [id number] 2.16.840.1.254522.3.579. 2.593 1997 Unknown [id number] 2.16.840.1.284091.3.579. 2.593 1997 Unknown [id number] 2.16.840.1.368213.3.579. 2.593 1997 Unknown [id number] 2.16.840.1.355802.3.579. 2.593 1997 Unknown [id number] 2.16.840.1.509851.3.579. 2.593 1997 Unknown [id number] 2.16.840.1.641012.3.579. 2.593 1997 Unknown [id number] 2.16.840.1.797278.3.579. 2.593 1997 Unknown [id number] 2.16.840.1.095525.3.579. 2.593 1997 Unknown [id number] 2.16.840.1.336624.3.579. 2.593 1997 Unknown [id number] 2.16.840.1.595876.3.579. 2.593 1997 Unknown [id number] 2.16.840.1.231229.3.579. 2.593 1997 Unknown [id number] 2.16.840.1.834401.3.579. 2.593 1997 Unknown [id number] 2.16.840.1.232502.3.579. 2.593 1997 Unknown [id number] 2.16.840.1.434959.3.579. 2.593 1997 Unknown [id number] 2.16.840.1.896147.3.579. 2.593 1997 Unknown [id number] 2.16.840.1.309207.3.579. 2.1259 1997 Unknown [id number] 2.16.840.1.225865.3.579. 2.1259 1997 Unknown [id number] 2.16.840.1.452452.3.579. 2.1259 1997 Unknown [id number] 2.16.840.1.412488.3.579. 2.1259 1997 Unknown [id number] 2.16.840.1.588707.3.579. 2.1259 1997 Unknown [id number] 2.16.840.1.390658.3.579. 2.1259 1997 Unknown [id number] 2.16.840.1.084013.3.579. 2.1259 1997 Unknown [id number] 2.16.840.1.968515.3.579. 2.1259 1997 Unknown [id number] 2.16.840.1.784413.3.579. 2.1259 1997 Unknown [id number] 2.16.840.1.319858.3.579. 2.727 1997 Unknown [id number] 2.16.840.1.180493.3.579. 2.1286 1997 Unknown [id number] 2.16.840.1.958162.3.579. 2.1286 1997 Unknown [id number] 2.16.840.1.568940.3.579. 2.1286 1997 Unknown [id number] 2.16.840.1.587649.3.579. 2.594 1997 Unknown [id number] 2.16.840.1.119338.3.579. 2.594 1997 Unknown [id number] 2.16.840.1.235244.3.579. 2.594 1997 Unknown [id number] 2.16.840.1.170697.3.579. 2.594 1997 Unknown [id number] 2.16.840.1.541359.3.579. 2.594 1997 Unknown [id number] 2.16.840.1.963313.3.579. 2.594 1997 Unknown [id number] 2.16.840.1.713369.3.579. 2.594 1997 Unknown [id number] 2.16.840.1.208599.3.579. 2.594 1997 Unknown [id number] 2.16.840.1.469635.3.579. 2.594 1997 Unknown [id number] 2.16.840.1.625039.3.579. 2.594 1997 Unknown [id number] 2.16.840.1.802923.3.579. 2.594 1997 Unknown [id number] 2.16.840.1.614924.3.579. 2.594 1997 Unknown [id number] 2.16.840.1.893206.3.579. 2.594 1959 Unknown [id number] 2.16.840.1.556053.19 Unknown [id number] 2.16.840.1.366895.3.579. 2.531 Unknown [id number] Unknown [id number] Social History Date Type Detail Facility Unknown if ever smoked [employer] Other Start: 02-18-2022 End: 03-11-2023 Sex Assigned At [facility] Tobacco smoking stat us [facility] Tobacco smoking consumption unknown [facility] Work Phone: Start: 1995 Sex Assigned At Not on file [facility] Start: 02-11-2022 End: 03-19-2022 Tobacco smoking status NEIS Never smoked tobacco [facility] Start: 03-31-2022 End: 04-14-2024 Alcohol intake Ex-drinker (finding) [facility] Start: 03-19-2022 History SDOH Alcohol Comment last alchohol 2019; mixed drink rarely [facility] Start: 02-11-2022 End: 04-14-2022 Tobacco use and exposure Smokeless tobacco non-user [facility] Start: 05-12-2022 End: 08-19-2022 Exposure to SARS-CoV-2 (event) Not sure [facility] Start: 06-28-2022 End: 07-08-2022 Exposure to SARS-CoV-2 (event) Unable to assess [facility] Start: 02-18-2022 End: 03-11-2023 History of Social function [facility] Adolescent depressio n screening assessment 1 [facility] Start: 01-12-2023 [facility] Start: 1995 Sex Assigned At Female [facility] Start: 01-25-2023 Gender identity Identifies as female gender (finding) [facility] Start: 01-25-2023 Sexual orientation Heterosexual (finding) [facility] Do you belong to any clubs or organizations such as protestant groups, unions, fraternal or athletic groups, or school groups? No [facility] Are you now , , , , never or living with a partner? [facility] How often to you hav e a drink containing alcohol? Never [facility] How hard is it for y ou to pay for the very basics like food, housing, medical care, and heating Somewhat hard [facility] Do you feel stress - tense, restless, nervous, or anxious, or unable to sleep at night because your mind is troubled all the time - these days [OSQ] Very much [facility] Start: 02-18-2022 Education 21 [facility] Start: 02-04-2022 Sex Female (finding) [facility] Goals Date Patient Goal Desired Activity /State Personal health goal Functional Status Date Assessment Result Facility 02-07-2024 [facility] 12-22-2021 to 05-15-2024 Telephone Encounter - Alena Beauchamp [facility] - 05/15/2024 2:42 PM EDTTelephone Encounter - Alena Beauchamp, [facility] - 05/15/2024 2:42 PM EDTTelephone Encounter - Alena Beauchamp [facility] - 05/15/2024 2:42 PM EDT Note Date & Type Note Facility 05-15-2024 Miscellaneous Notes ----- Message from Dr. Timmy Hall DO sent at 05/15/2024 10:51 AM EDT ----- Please let patient know that she had mild chronic gastritis and I recommend taking omeprazole OTC for 6 weeks otherwise she may follow up p.r.n.. ThanksDr. Smith Spoke with patient regarding pathology results. Patient verbally understood with no further questions. documented in this encounter [facility] 05-15-2024 Telephone encounter Note ----- Message from Dr. Timmy Hall DO sent at 05/15/2024 10:51 AM EDT ----- Please let patient know that she had mild chronic gastritis and I recommend taking omeprazole OTC for 6 weeks otherwise she may follow up p.r.n.. ThanksDr. Smith [facility] 05-15-2024 Telephone encounter Note Spoke with patient regarding pathology results. Patient verbally understood with no further questions. [facility] 04-21-2024 Telephone encounter Note Patient returned phone [...] clinic when test completed to obtain reports. [facility] 04-21-2024 Miscellaneous Notes Patient returned phone call [...] was rescheduled to 04/25/24. She c/o abdominal zgab-wgoqp-bwj RUQ, nausea, no vomiting or fevers, occasional chills, and more frequent diarrhea outside of her normal daily diarrhea. She is inquiring if would order a CT of her abdomen. She is requesting a call back. documented in this encounter [facility] 04-21-2024 Telephone encounter Note Attempted to contact patient and message left. [facility] 04-12-2024 Telephone encounter Note 04/12/2024 11:43 AM Patient sent a my chart message asking this per Dr Ortega: Did she try cholestyramine for the diarrhea? RN also let her know via my chart about her scan. --Any Medrano RN [facility] 04-12-2024 Miscellaneous Notes 04/12/2024 11:43 AM Patient [...] was rescheduled to 04/25/24. She c/o abdominal iwka-byndn-ysf RUQ, nausea, no vomiting or fevers, occasional chills, and more frequent diarrhea outside of her normal daily diarrhea. She is inquiring if would order a CT of her abdomen. She is requesting a call back. documented in this encounter [facility] 04-11-2024 Telephone encounter Note Call placed to [...] blood in stools just a couple instances [facility] 04-11-2024 Telephone encounter Note Patient phoned in stating that she was scheduled for her PET scan tomorrow however she had her Octreotide injection 8 days ago so it was rescheduled to 04/25/24. She c/o abdominal qcjy-akgym-azn RUQ, nausea, no vomiting or fevers, occasional chills, and more frequent diarrhea outside of her normal daily diarrhea. She is inquiring if would order a CT of her abdomen. She is requesting a call back. [facility] 03-17-2024 Note Addended by: Anna MORALEZ on: 03/17/2024 04:17 PM Modules accepted: Orders [facility] 03-17-2024 Note Addended by: Anna MORALEZ on: 03/17/2024 04:17 PM Modules accepted: Orders [facility] 03-17-2024 Telephone encounter Note Refilled [facility] 03-17-2024 Miscellaneous Notes Addended by: YUDELKA MORALEZ on: 03/17/2024 04:17 PM Modules accepted: Orders Refilled Call placed to patient - she was rescheduled for April 04. They asked to ask us if they have to have an order sent to their clinic? [facility] center in [place]. She didn't ever case picker the prescription for her short acting [...] she will need to start prep soon. [phone] documented in this encounter [facility] 03-17-2024 Telephone encounter Note Call placed to patient - she was rescheduled for April 04. They asked to ask us if they have to have an order sent to their clinic? [facility] center in [place]. She didn't ever case picker the prescription for her short acting octreotide. She'd be happy to pick that up to take the short acting shots prior to procedure. [facility] 03-13-2024 Telephone encounter Note Called to speak to patient regarding her colonoscopy but no answer at this time. LVM to have patient call us back at their earliest convenience [facility] 03-13-2024 Telephone encounter Note Patient calling in stating she has a colonoscopy scheduled tomorrow. The surgery center where she is getting it done does not have the Octreotide she should take. Wanting to know if she should reschedule. Requesting a response as soon as possible as she will need to start prep soon. [phone] [facility] 02-07-2024 Evaluation + Plan note Future Scheduled TestsCeliac Disease Comprehensive 02/07/24Celiac Disease Comprehensive 02/07/24 [facility] 01-06-2024 History of Present [...] RLQ pain. She underwent an appendectomy at [facility] 02/03/22. Pathology was consistent with both [...] She has followed with Dr. Ortega at [facility]. She began octreotide LAR 09/09/22. This was [...] N/A; Surgeon: Archie Hugo MD, PhD; Location: [facility] MAIN OR COLECTOMY PARTIAL OPEN Right 05/22/2022 Laterality: Right; Surgeon: Archie Hugo MD, PhD; Location: [facility] MAIN OR DEBULKING INTRA-ABDOMINAL/PELVIC/RETROPERIT CABELLO W/ OMENECTOMY & PELVIC PARA-AORTIC LYMPHADENECTOMY N/A 05/22/2022 Laterality: N/A; Surgeon: Archie Hugo MD, PhD; Location[facility] MA[facility] OR COLECTOMY PARTIAL LAPAROSCOPIC N/A 04/21/2022 Laterality: N/A; Surgeon: Archie Hugo MD, PhD; Location: [facility] MAIN OR COLONOSCOPY DIAGNOSTIC 04/08/2022 APPENDECTOMY LAPAROSCOPIC 02/03/2022 [place], [place] Medications: Current Outpatient Medications Medication Sig [...] (Patient not taking: Reported on 01/06/2024) Pancrelipase, Fvo-Tcxy-Owwk, (Creon) [id number] units Cap DR Particles Please take one [...] Resource Strain: Medium Risk (02/18/2022) Received from [facility] Overall Financial Resource Strain (CARDIA) Difficulty of Paying Living Expenses: Somewhat hard Food Insecurity: No Food Insecurity (07/07/2023) Received from [facility] Hunger Screening Within the past 12 months we worried whether our food would run out before we got money to buy more.: Never True Within the past 12 months the food we bought just didn't last and we didn't have money to get more.: Never True Transportation Needs: No Transportation Needs (02/18/2022) Received from [facility] PRAPARE - Transportation Lack of Transportation (Medical): No Lack of Transportation (Non-Medical): No Physical Activity: Insufficiently Active (02/18/2022) Received from [facility] Exercise Vital Sign Days of Exercise per Week: 3 days Minutes of Exercise per Session: 40 min Stress: Stress Concern Present (02/18/2022) Received from [facility] [place] [facility] - Occupational Stress Questionnaire Feeling of Stress : Very much Social Connections: Unknown (02/18/2022) Received from [facility] Social Connection and Isolation Panel [NHANES] Frequency of Communication with Friends and Family: Twice a week Frequency of Social Gatherings with Friends and Family: Patient declined Attends Yarsanism Services: Never Active Member of Clubs or [...] y.o. female who underwent an appendectomy at [facility] 02/03/22. Pathology was consistent with both [...] She has followed with Dr. Ortega at [facility] for her NET. She began octreotide LAR [...] to her satisfaction. Carol Summers MD, PhD [facility] Division of Medical Oncology Division of Gynecologic Oncology documented in this encounter [facility] 01-06-2024 Instructions Latesha Steen RN - 01/06/2024 3:00 PM EDT You will return to clinic: 1 year To see provider: Dr Summers documented in this encounter [facility] 11-26-2023 History of Present illness Narrative This nurse verified pts name and . Subjective History of Present Illness: Chief Complaint Patient presents with New Patient Zainab Swift is a 28 y.o. female who presents to the [facility] Gastroenterology, Hepatology, and Nutrition Clinic today [...] Surgeon: Archie Hugo MD, PhD; Location[facility] OR COLONOSCOPY DIAGNOSTIC 04/08/2022 APPENDECTOMY LAPAROSCOPIC 02/03/2022 [place], [place] Current Outpatient Medications Medication Sig acetaminophen [...] as needed for Other (carcinoid syndrome). Pancrelipase, Wrk-Xttp-Iqtu, (Creon) [id number] units Cap DR Particles Please take one [...] enzymes - ALPHA 1 ANTITRYPSIN; Future - HYKEL-5-VZAJLJMNCKJ PHENOTYPE; Future - HUNTER SCREEN IFA; Future [...] - TRANSIENT ELASTOGRAPHY documented in this encounter [facility] 11-26-2023 Instructions MAMTA Dee - 11/26/2023 9:30 AM EDT Labs today to evaluate for causes of liver enzyme elevation Fibroscan ordered to evaluate your liver for fibrosis, steatosis Follow up in 3 months - video documented in this encounter [facility] 08-24-2023 History of Present illness Narrative Reason [...] nursing note reviewed. Exam conducted with a claims associate present. Vitals: Estimated body mass index is [...] Ron Ruano DO documented in this encounter [facility] 12-10-2022 History of Present illness Narrative Chief Complaint: Chief Complaint Patient presents with Follow-up HPI: Zainab Swift is a 27 y.o. female who presents to [facility]cology [facility] for post-operative [...] (Patient not taking: Reported on 07/06/2022) Pancrelipase, Boj-Ooue-Hmxl, (Creon) [id number] units Cap DR Particles Take two caps [...] 27 y.o. female who presents to [facility] for post-operative [...] (Patient not taking: Reported on 07/06/2022) Pancrelipase, Kqh-Vram-Vytv, (Creon) [id number] units Cap DR Particles Take two caps [...] questions, concerns, or change in clinical status. Daya Vigil APRN-SHEET METAL FORMER Attending Physician Note I interviewed and examined this patient with the NEUROPSYCHIATRIC AIDE/fellow/resident. I reviewed the history and exam detailed [...] months with repeat imaging. Archie Hugo MD/PhD advertising inserter Division of Surgical Oncology Department of Surgery documented in this encounter [facility] 12-10-2022 Instructions MAMTA Villagran - 12/10/2022 12:30 PM EDT documented in this encounter [facility] 10-22-2022 History of Present illness Narrative I [...] ulcers, vision changes. 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 but overall able to do everything on [...] Surgeon: Archie Hugo MD, PhD; Location: [facility] MAIN OR COLECTOMY PARTIAL OPEN Right 05/22/2022 Laterality: Right; Surgeon: Archie Hugo MD, PhD; Location: [facility] MAIN OR DEBULKING INTRA-ABDOMINAL/PELVIC/RETROPERIT CABELLO W/ OMENECTOMY & PELVIC PARA-AORTIC LYMPHADENECTOMY N/A 05/22/2022 Laterality: N/A; Surgeon: Archie Hugo MD, PhD; Location: [facility] MAIN OR COLECTOMY PARTIAL LAPAROSCOPIC N/A 04/21/2022 Laterality: N/A; Surgeon: Archie Hugo MD, PhD; Location: [facility] MAIN OR COLONOSCOPY DIAGNOSTIC 04/08/2022 APPENDECTOMY LAPAROSCOPIC 02/03/2022 [place], [place] Family History Problem Relation Age of [...] Reported on 07/06/2022) 30 tablet 0 Pancrelipase, Nyp-Uexj-Pufu, (Creon) [id number] units Cap DR Particles Take two caps [...] STRESS 10/22/2022 0.86 Final e' septal pk rja 10/22/2022 0.14 m/s Final e' lateral pk [...] Suero MD documented in this encounter [facility] 10-22-2022 Instructions Rebekah Suero MD - 10/22/2022 [...] Rub Alcohol hand rub, also called hand engineering mechanic, can be used instead of soap and [...] they are dry, atleast 20-30 seconds. The [facility]. This handout is for informational purposes only. Talk with your doctor or healthcare team if you have any questions about your care. For more health information call the Library for Health Information at [phone] or email: [email or web address]. documented in this encounter [facility] 10-22-2022 History of Present illness Narrative Intravenous access obtained and remained for next appointment in cardioology at [facility]. 22 gauge IV in left ac. Dressing intact and/or coban used to secure access. Patient instructed to report directly to next appointment. documented in this encounter [facility] 10-07-2022 Note Acute Coronary Syndr ome (ACS): Initial Evaluation and Management: [email or web address] [facility] 10-07-2022 History of Present illness Narrative Images [...] able to do housework. 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 Eating [...] Reported on 07/06/2022) 30 tablet 0 Pancrelipase, Wut-Ibaq-Lnkg, (Creon) [id number] units Cap DR Particles Take two caps [...] Surgeon: Archie Hugo MD, PhD; Location: [facility] MAIN OR COLECTOMY PARTIAL OPEN Right 05/22/2022 Laterality: Right; Surgeon: Archie Hugo MD, PhD; Location: [facility] MAIN OR DEBULKING INTRA-ABDOMINAL/PELVIC/RETROPERIT CABELLO W/ OMENECTOMY & PELVIC PARA-AORTIC LYMPHADENECTOMY N/A 05/22/2022 Laterality: N/A; Surgeon: Archie Hugo MD, PhD; Location: [facility] MAIN OR COLECTOMY PARTIAL LAPAROSCOPIC N/A 04/21/2022 Laterality: N/A; Surgeon: Archie Hugo MD, PhD; Location: [facility] MAIN OR COLONOSCOPY DIAGNOSTIC 04/08/2022 APPENDECTOMY LAPAROSCOPIC 02/03/2022 [place], [place] Past medical, surgical, family, and social [...] symptoms. MAMTA [facility] Ghulam Narinder [facility] and Mohamud Aguirre [facility] To discuss with Dr. Ortega documented in this encounter [facility] 10-07-2022 Instructions Johana Lutz RN - [...] script to Zainab Thank you for choosing [facility] for your cancer care. FMLA/Disability forms: Please allow up to 2 weeks for the forms to be returned to you +++ should you need any FMLA, Short term disability or parts counterman disability forms filled out please fax them to (f) [phone] ++++ Refill requests: Please allow 24-48 hours for a response My chart message response: PLEASE DO NOT SEND IN URGENT/EMERGENT MESSAGES VIA MY CHART. Please allow up to 24-48 hours for a response via my chart. Should you have questions or concerns, please call [phone] documented in this encounter [facility] 07-08-2022 History of Present illness Narrative Images [...] quickly and requires nap. 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 Better [...] OR COLONOSCOPY DIAGNOSTIC 04/08/2022 APPENDECTOMY LAPAROSCOPIC 02/03/2022 [place], [place] Social History Socioeconomic History Marital status: [...] Dr. Ortega for impression and recommendations. Yudelka Moralez, SPENCER-SHEET METAL FORMER Neuroendocrine Tumor Program [facility] Barc[facility] and Mohamud Aguirre [facility] Addendum by Dr. Ortega: Burton Addendum:I saw and evaluated the patient with [...] She was seen by Dr. Archie Hugo ([facility] surg[facility]) in 03/[address] chest revealed [...] and fatigue. ECOG PS 1. 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 1. Metastatic, well differentiated, grade [...] placebo groups was 14.3 and 6 months (p=[id number]), respectively. The CLARINET study, [which enrolled patients [...] 2. LAMN: Discussed with Dr. Carol Summers/GI medon who recommended active surveillance. No role for adjuvant systemic therapy. Patient will continue to follow with Dr. Archie Hugo. 3. Hx of NET in family: referral to genetics 4. Transaminitis: discontinue hepatotoxins/acetaminophen. Repeat LFTs at [facility]. documented in this encounter [facility] 07-08-2022 Instructions Yina Amaya RN - 07/08/2022 [...] Tylenol Cancel pathology-done documented in this encounter [facility] 06-09-2022 History of Present illness Narrative Chief Complaint: Chief Complaint Patient presents with Follow-up HPI: Zainab Swift is a 27 y.o. female who presents to [facility] for post-operative [...] status. MAMTA Carrion documented in this encounter [facility] 06-09-2022 Instructions Veronique Calvin RN - 06/09/2022 1:15 PM EST Tele health visit with Raina Gomes CNP in 4 weeks on a Wednesday. Referral placed to neuroendocrine oncology. Return in [address] Hugo with scans same day. documented in this encounter [facility] 05-29-2022 Note Formatting of this n ote [...] via wheelchair with all belongings at 1147. [facility] 05-29-2022 Miscellaneous Notes Patient and spouse given [...] N/A Transportation Transportation will be provided by Sybil-spouse. Education Discharge education provided by the medical [...] and assistance is needed, please page the production director PCRM at [phone]. Patient did well overnight. Patient pain mostly [...] multiple times yesterday. 2123: Moonlight paged: Rm 1204, [place]: FYI pt states that she can't tolerate taking the olanzapine disintegrating tablet because of the NG. Thanks 17013 Q1 safety rounds completed. Patient pain controlled [...] care will be discharge to home. 05/22/22 1602 Referral Information Arrived From home or self-care;operating room Readmission Information Was patient readmitted within 30 Days? No Information Source Information Source patient Information Source Name Zainab Swift-in person Information Source Number Demographics reviewed Outpatient Providers Outpatient Providers Updated In IHIS Yes Contact Information Body Presser/SW Added to Care Team Yes This Food Bagging Machine Operator is Primary Body Presser/SW Yes (Antonio Jiang RN [facility] [phone]) Body Presser Name Pinky Barcenas RN [facility] Body Presser's Social Work Contact Name Bailey Magallanes JAVA PROJECT MANAGER, RESIDENT HALL DIRECTOR Snorkelling Instructor's Living Environment Lives With spouse Living Arrangements [...] Discharge Planning, Education And Care For Discharge? Sybil Swift [phone] Can Support Person Meet The Care Needs Of The Patient? 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 Employment/Financial Concerns no Source Of Income salary/wages Financial Concerns none Insurance Medical Insurance Verified Yes Prescription Coverage Yes Pharmacy updated in IHIS Yes Initial Discharge Planning Home Care Services (IRON MINER) No Home Therapies (IRON MINER) None DME (IRON MINER) None Medical Supplies (IRON MINER) None Patient Goal for Discharge Return home with assistance from family and friends Anticipated discharge disposition Home Anticipated Services at Discharge Outpatient follow up Anticipated Changes Related to Illness none Current Discharge Risk high risk diagnoses (i.e., CHF, Stroke, DM, chronic pain, abdominal pain, nausea and vomiting) Transportation Available car Home Care Services (IRON MINER) Additional Home Care Services (IRON MINER) no Assessment/Concerns to be Addressed Concerns To [...] Anesthesiologist: Carol Gupta DO; Chayo Benson MD Home Theatre Technician: VIJAYA Gamboa; VIJAYA Lopez Organic Preparation Technician Assisting: Richard Bradshaw MD Analytical Sciences Director: Wali Art. Patient placed on monitors, VSS. Report received from anesthesia. Patient assessed, see assessment. 1427: PACU labs and abdominal xray for NG placement cleared by Miguel Betancourt at this time. 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 JR drain placed in pelvis. SURGEON Surgeon(s) and Role: * Archie Hugo MD, PhD - Primary ANESTHESIOLOGIST Anesthesiologist: Carol Gupta DO; Chayo Benson MD Home Theatre Technician: VIJAYA Gamboa; VIJAYA Lopez Organic Preparation Technician Assisting: Richard Bradshaw MD Analytical Sciences Director: Wali Art SURGICAL STAFF Psychology Fellow: Piedad Maki RN; Rima Medel RN Relief Psychology Fellow: Suri Stockton RN Relief Scrub: Ghanshyam Townsend [...] May 22, 2022 1:06 PM Zainab Swift ([id number]) PRE OPERATIVE DIAGNOSIS Primary malignant neuroendocrine tumor [...] Anesthesiologist: Carol Gupta DO; Chayo Benson MD Home Theatre Technician: VIJAYA Gamboa; VIJAYA Lopez Organic Preparation Technician Assisting: Richard Bradshaw MD Analytical Sciences Director: Wali Art SURGICAL STAFF Psychology Fellow: Piedad Maki RN; Rima Medel RN Relief Psychology Fellow: Suri Stockton RN Relief Scrub: Ghanshyam Townsend [...] 1:04 PM SURGEONS: Archie Hugo MD, PhD RETAIL PRESENTATION SPECIALIST SURGEON: Rodolfo Arnold MD PROCEDURE: - [...] sarmiento stapler device. Next, we began the xgaisc-eh-shgurmx dissection to mobilize the colonic mesentery. We [...] filed. We then proceeded with creating a ljdc-eu-snlp functional end-to-end anastomosis between the distal ileum [...] Left lateral abdomen laparoscopic puncture Placement Date/Time: 04/21/2248 Present On Admission : no Side: Left Orientation: lateral Location: abdomen Incision Type: laparoscopic puncture Incision WDL WDL Incision (Adult, Pediatric) 04/21/2249 lower;medial abdomen laparoscopic puncture Placement Date/Time: 04/21/22748 Present On Admission : no Orientation: lower;medial Location: abdomen Incision Type: laparoscopic puncture Incision WDL WDL Plan WOCT Visit Frequency Sat Last Date Seen 05/22/22 documented in this encounter [facility] 05-29-2022 Hospital course Narrative Discharge Summary Name: [...] at: Arrive to [facility] Registration [phone] documented in this encounter [facility] 05-28-2022 Note Formatting of this n ote [...] N/A Transportation Transportation will be provided by Sybil-spouse. Education Discharge education provided by the medical [...] and assistance is needed, please page the production director PCRM at [phone]. [facility] 05-28-2022 History of Present illness Narrative [...] the care of Zainab Swift. Please page [phone] or call [phone] with any questions or concerns. Elroy Powell MD Acute Pain Service Senior Resident @ [phone] Subjective: Passing gas and having regular BMs. [...] Oanh Betancourt APRN-TASH B surgery G3 service [phone] Anesthesia Acute Pain Progress Note Zainab Swift [...] acute pain service at [phone] or call [phone] with any questions or concerns. Yann Burr [...] Oanh Colón APRN-TASH B surgery G3 service [phone] Psychosocial Assessment Per chart review, patient is a is a 27 y.o. 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 PMH: anxiety, borderline personality disorder, depression, GERD SW met with patient to introduce self, explain social scientist role during inpatient stay, and answer patient questions. Patient was alert and oriented x4 and agreeable to SW visit. Information Source Information Source: patient , review of medical record, spouse Information Source Name: Arlette Swift Information Source Number: see demographics Contact Information Body Presser Name: Pinky Smith RN PCRM Body Presser's Social Work Contact Name: Bailey Quarles JAVA PROJECT MANAGER RESIDENT HALL DIRECTOR Snorkelling Instructor's Living Environment Lives With: spouse Living Arrangements: house (one story house wiith 3 Steps to enter) Provides Primary Care For: no one Primary Care Provided By: spouse/significant other, self Support System: Immediate family Able to Return to Prior Arrangements: yes Employment/Financial Employed?: Yes 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 Health Insurance / Rx: orderTalk/[id number] [place] [address] [address] [address] [address] [facility] Anticipated Discharge Plan: Pt report [...] stay. IMER Christina, ABBIE SONC and HPB Snorkelling Instructor Pager: [phone] For Evening (4:30pm-8am) and Weekend SW needs please call [phone] or page [phone] Anesthesia Acute Pain Progress Note Zainab Swift [...] acute pain service at [phone] or call [phone] with any questions or concerns. Yann Burr [...] with MAMTA Wisdom B surgery G3 service [phone] Anesthesia Acute Pain Progress Note Zainab Swift [...] regimen Please page acute pain service at [phone] or call [phone] with any questions or concerns. Yann Burr MD PGY-1 Anesthesiology Acute Pain Service Attending Addendum I personally examined and evaluated the patient. I reviewed the case and medical record with the resident. Based on the ROS, History, and Exam, I agree with the medical decision making. Beck P Tyrese, M.D. Subjective: No acute events overnight. Pain [...] interviewed and examined this patient with the NEUROPSYCHIATRIC AIDE/fellow/resident. I reviewed the history and exam detailed in the note and have edited it as necessary. I agree with the medical decision making unless otherwise noted below. The patient is doing well. Her pain is well controlled. She is mildly distended on exam. We will continue NPO with NGT until return of bowel function. Archie Hugo MD/PhD advertising inserter Division of Surgical Oncology Department of Surgery [...] Piggyback:643.5] Out: 3380 [Urine:3050; Other:330] Bun/Creat/Cl/CO2/Glucose: 2/0.51/104/24/98 (11/07 0219) WBC/Hgb/Hct/Plts: 9.85/9.8/31.7/292 (05/25 219) Na/K+/Phos/Mg/Ca: 137/4.0/3.2/1.8/8.5 (05/25 [...] Plan was discussed with Dr. Oanh Colón, WILDLIFE AND GAME PROTECTOR-SHEET METAL FORMER HPB surgery G3 service [id number] HP[facility] Surgery Note Subjective: Patient doing well [...] acute pain service at [phone] or call [phone] with any questions or concerns. Yann Burr [...] regimen Please page acute pain service at [phone] or call [phone] with any questions or concerns. Yann Burr [...] acute pain service at [phone] or call [phone] with any questions or concerns. Richard Bradshaw MD resident physician in radiology [facility] documented in this encounter [facility] 05-27-2022 Note Formatting of this n ote [...] with stand-by assistance from multiple times yesterday. [facility] 05-26-2022 Consult note Formatting of th is [...] 1: Location: forearm, anterior, right Device/Lot Number: [id number] catheter system Gauge/Length: 1 3/4 in length;20 gauge Unsuccessful Insertion Attempts: 1 Unsuccessful Attempt Location/Site: Pain Prevention/Patient Tolerance: distraction;tolerated well;appears comfortable Removal: Additional Comments: placed by Carla Mccurdy RN Lumen 2: Lumen 3: Peripheral IV Present on Admission: (Retired/Read Only) Location: (Retired/Read Only) Device: (Retired/Read Only) Gauge/Length: Criminology Teacher/Lot Number: Unsuccessful Insertion Attempts: (Retired/Read Only) Unsuccessful [...] care of this patient. Vascular Access Team [id number] [facility] 05-26-2022 Consult note Formatting of th [...] 1: Location: forearm, anterior, right Device/Lot Number: [id number] catheter system Gauge/Length: 1 3/4 in length;20 gauge Unsuccessful Insertion Attempts: 1 Unsuccessful Attempt Location/Site: Pain Prevention/Patient Tolerance: distraction;tolerated well;appears comfortable Removal: Additional Comments: placed by Carla Mccurdy RN Lumen 2: Lumen 3: Peripheral IV Present on Admission: (Retired/Read Only) Location: (Retired/Read Only) Device: (Retired/Read Only) Gauge/Length: Criminology Teacher/Lot Number: Unsuccessful Insertion Attempts: (Retired/Read Only) Unsuccessful [...] care of this patient. Vascular Access Team [id number] documented in this encounter [facility] 05-25-2022 Note Formatting of this n ote might be different from the original. 4: Moonlighter paged: Rm 1202, Nichoyling: ERIK pt states that she can't tolerate taking the olanzapine disintegrating tablet because of the NG. Thanks [id number] [facility] 05-22-2022 Note Formatting of this n ote [...] outcomes by discharge/transition of care. Outcome: Ongoing [facility] 05-22-2022 Note Formatting of this n ote might be different from the original. I certify that this patient requires inpatient services at this time. I anticipate the expected length of stay will include at least two midnights. Inpatient services are due to the following medical concerns appendiceal NET. Plans for post hospitalization care will be discharge to home. [facility] 05-22-2022 Note Formatting of this n ote is different from the original. 05/22/22 1608 Referral Information Arrived From home or self-care;operating room Readmission Information Was patient readmitted within 30 Days? No Information Source Information Source patient Information Source Name Zainab Swift-in person Information Source Number Demographics reviewed Outpatient Providers Outpatient Providers Updated In IHIS Yes Contact Information Body Presser/SW Added to Care Team Yes This Food Bagging Machine Operator is Primary Body Presser/SW Yes (Antonio Jiang RN PCRM [phone]) Body Presser Name Pinky Barcenas RN [facility] Body Presser's Social Work Contact Name Bailey WILLAMS, [facility] Snorkelling Instructor's Living Environment Lives With spouse Living Arrangements [...] Discharge Planning, Education And Care For Discharge? Sybil Swift [phone] Can Support Person Meet The Care Needs Of The Patient? 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 Employment/Financial Concerns no Source Of Income salary/wages Financial Concerns none Insurance Medical Insurance Verified Yes Prescription Coverage Yes Pharmacy updated in IS Yes Initial Discharge Planning Home Care Services (IRON MINER) No Home Therapies (IRON MINER) None DME (IRON MINER) None Medical Supplies (IRON MINER) None Patient Goal for Discharge Return home with assistance from family and friends Anticipated discharge disposition Home Anticipated Services at Discharge Outpatient follow up Anticipated Changes Related to Illness none Current Discharge Risk high risk diagnoses (i.e., CHF, Stroke, DM, chronic pain, abdominal pain, nausea and vomiting) Transportation Available car Home Care Services (IRON MINER) Additional Home Care Services (IRON MINER) no Assessment/Concerns to be Addressed Concerns To [...] Lines/Drains/Tubes Abdominal incision with dressing x 2 Theriot drain x 1-under distal dressing NG-low wall [...] and for discharge planning. Medical team updated. [facility] 05-22-2022 Note Formatting of this n ote might be different from the original. 1512: Report called to Jevon EMERY on 12 [facility]. All questions answered. 1514: Patient discharged from [facility] PACU per protocol. Patient transported via gurney with side rails up x2 with HOB>30 degrees to room 1204 [facility] by Natalia EMERY and [employer] INTEGRATION ENGINEER. Family called to patient's bedside. [facility] 05-22-2022 Note Formatting of this n ote might be different from the original. 1310: Patient arrives in [facility] PACU from OR via gurney with side rails up x2 with HOB >30 degrees, accompanied by Anesthesiologist: Carol Gupta DO; Chayo Benson MD Home Theatre Technician: VIJAYA Gamboa; VIJAYA Lopez Organic Preparation Technician Assisting: Richard Bradshaw MD Analytical Sciences Director: Wali Art. Patient placed on monitors, VSS. Report received from anesthesia. Patient assessed, see assessment. 1427: PACU labs and abdominal xray for NG placement cleared by Miguel Betancourt at this time. [facility] 05-22-2022 Note Formatting of this n ote is different from the original. 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 JR drain placed in pelvis. SURGEON Surgeon(s) and Role: * Archie Hugo MD, PhD - Primary ANESTHESIOLOGIST Anesthesiologist: Carol Gupta DO; Chayo Benson MD Home Theatre Technician: VIJAYA Gamboa; VIJAYA Lopez Organic Preparation Technician Assisting: Richard Bradshaw MD Analytical Sciences Director: Wali Art SURGICAL STAFF Psychology Fellow: Piedad Maki RN; Rima Medel RN Relief Psychology Fellow: Suri Stockton RN Relief Scrub: Ghanshyam Bardelanmary Scrub Person: Heidy Skelton; Tammy Lopez Resident [...] Arnold MD May 22, 2022 1:06 PM [facility] Work Phone: 05-22-2022 Note Formatting of this n ote is different from the original. Zainab Swift ([id number]) PRE OPERATIVE DIAGNOSIS Primary malignant neuroendocrine tumor [...] Anesthesiologist: Carol Gupta DO; Chayo Benson MD Home Theatre Technician: VIJAYA Gamboa; VIJAYA Lopez Organic Preparation Technician Assisting: Richard Bradshaw MD Analytical Sciences Director: Wali Art SURGICAL STAFF Psychology Fellow: Piedad Maki RN; Rima Medel RN Relief Psychology Fellow: Suri Stockton RN Relief Scrub: Ghanshyam Townsend [...] Hong MD May 22, 2022 1:04 PM [facility] Work Phone: 05-22-2022 Note Formatting of this n ote is different from the original. SURGEONS: Archie Hugo MD, PhD RETAIL PRESENTATION SPECIALIST SURGEON: Rodolfo Arnold MD PROCEDURE: - [...] sarmiento stapler device. Next, we began the svdxxg-im-nzcoxri dissection to mobilize the colonic mesentery. We [...] filed. We then proceeded with creating a nqco-lt-bstt functional end-to-end anastomosis between the distal ileum [...] participated for the entirety of the case. [facility] Work Phone: 05-22-2022 Nurse Surgical operation note 0815 Family notified of surgery start 1022, 1211 Family updated 1228 Handoff report sent to PACU charge nurse 1255 PACU given notice of arrival 1306 Patient extubated and transported to PACU with anesthesia at bedside and on oxygen inhalation Rima Medel RN [facility] 05-22-2022 Nurse Note 0815 Family notified of surgery start 1022, 1211 Family updated 1228 Handoff report sent to PACU charge nurse 1255 PACU given notice of arrival 1309 Patient extubated and transported to PACU with anesthesia at bedside and on oxygen inhalation Rima Medel RN documented in this encounter [facility] 05-22-2022 Note Formatting of this n ote [...] 0746 upper;medial abdomen laparoscopic puncture Placement Date/Time: 04/21/22 0746 Present On Admission : no Orientation: upper;medial Location: abdomen Incision Type: laparoscopic puncture Incision WDL WDL Incision (Adult, Pediatric) 04/21/22 0748 Left lateral abdomen laparoscopic puncture Placement Date/Time: 04/21/22 0748 Present On Admission : no Side: Left Orientation: lateral Location: abdomen Incision Type: laparoscopic puncture Incision WDL WDL Incision (Adult, Pediatric) 04/21/22 0749 lower;medial abdomen laparoscopic puncture Placement Date/Time: 04/21/22 0749 Present On Admission : no Orientation: lower;medial Location: abdomen Incision Type: laparoscopic puncture Incision WDL WDL Plan WOCT Visit Frequency Sat Last Date Seen 05/22/22 [facility] 05-22-2022 History and physical note Surgical Oncology [...] N/A; Surgeon: Archie Hugo MD, PhD; Location: [facility] MAIN OR COLONOSCOPY DIAGNOSTIC 04/08/2022 APPENDECTOMY LAPAROSCOPIC 02/03/2022 [place], [place] Family History Family History Problem Relation [...] at 11am the day before surgery 05/21/2022 10/6/22 Elsie Mason APRN-TASH FLUoxetine 40 MG capsule [...] hours as instructed. 05/21/2022 04/23/22 Elsie Mason APRN-SHEET METAL FORMER Review of Systems Denies the following: Arrhythmias, [...] to the patient's satisfaction. Liza Cisneros PA-C [facility] 05-22-2022 History and physical note Surgical Oncology [...] N/A; Surgeon: Archie Hugo MD, PhD; [facility]IC 04/08/2022 APPENDECTOMY LAPAROSCOPIC 02/03/2022 [place], [place] Family History Family History Problem Relation [...] Cisneros PA-C documented in this encounter [facility] 05-21-2022 Hospital Discharge instructions Pinky Be RN - 05/21/2022 10:38 AM EDT Contacts: Archie Hugo MD Office Number: [phone] Option 1 During office hours, Wednesday through Wednesday, 8:00 AM to 4:30 PM, call the office if you have any questions or concerns. After hours, weekends and holidays call the office number and you will be transferred to the After Hours Nurse Line. Call 911 for Emergencies. Your case reviewer (PCRM) has arranged your appointments for follow [...] If your surgical incision is closed with kiek: The kike will be removed in the [...] pharmacist before using any other medicine, including nahw-bjg-iciwymb medicines, vitamins, and herbal products. Avoid taking [...] and support, many resources are available. The [employer] Call to request information or check hours. The [facility]: or , www.SpineForm [facility] Classes: [facility], Integrative Care Monthly Classes The [facility] Program offers a series of [...] families and friends. For more information, contact [facility] opvizor [facility] at or visit our website at www.[employer] Resources in [facility] include the following: The [employer] Cancer Society, [facility] Unit . The [facility] The Cancer [facility]: http://cancersupportohio.org/prog abph-exi-shqcymrr/virtual-communi ty/ National Resources: Chinese Cancer Society (ACS), www.cancer.org 7-200-MAP-2345, [place]: 4-205-YZX-[place]. National Comprehensive Cancer [facility] (NCCN) 2-336-187-NCCN, www.nccn.org National Cancer [place] (NCI) 4-097-9-CANCER, www.nci.gov The following attachments cannot be sent through Care Everywhere.Lovenox or Heparin: Subcutaneous Injections ([facility]) (Georgian)documented in this encounter [facility] 04-29-2022 Note PROCEDURE: XR HIP RT 2 [...] by: CAROLYN WALSH Date: 2022-04-29 16:59 [facility] 04-29-2022 Note PROCEDURE: XR HIP [...] by: CAROLYN WALSH Date: 2022-04-29 16:59 [facility] 04-29-2022 Note PROCEDURE: XR HIP [...] by: CAROLYN WALSH Date: 2022-04-29 16:59 [facility] 03-19-2022 History of Present illness [...] appendectomy on 02/03/22 for acute appendicitis at [facility]. 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 She presents to [facility] GI Surgical Oncology clinic for surgical [...] History: Procedure Laterality Date APPENDECTOMY LAPAROSCOPIC 02/03/2022 [facility], [place], [place] No Known Allergies Current Outpatient Medications [...] in our surgical oncology clinic at [facility], [facility] and [facility]. As you know, Ms. Swift is [...] the future. Sincerely, Archie Hugo MD, PhD advertising inserter Department of Surgery Division [place] [address] Office [phone] Fax [email or web address] [email or web address] documented in this encounter [facility] 03-19-2022 Instructions Rhoda Lazo RN - 03/19/2022 3:00 PM EDT Pre-operative Information As a patient at the [facility], you may work with various [...] performing your surgery is Archie Hugo M.D., advertising inserter. [address] [place] [address] Office phone: [phone] We are available to take calls Wednesday-Wednesday 8:00am-4:30pm. During non-business hours and holidays phone calls will be forwarded to a service covering our patients. Please communicate with our team through OS LiveProfilet for non-urgent issues only. Office fax: [phone] Clinic Nurse Practitioner Raina Gomes Scratcher Tender Sandra Kennedy Nursing Project Coordinator Iris Giraldo OUR TEAM OF EXPERTS [facility] is associated with The [facility] and is an academic medical center. Dr. Skip Le is an attending physician, the traffic maintenance supervisor of your care. Listed below are the members of his team: Surgical Oncology Fellow: a physician who completed residency and is obtaining further education. Resident(s): a physician who has finished wildlife biology internship and is receiving training in a specialized area (i.e. surgery) Welder Production Line Combination(s): a physician who has completed medical school and is in the 1st year of training Nurse Practitioner (NEUROPSYCHIATRIC AIDE): A registered nurse with a master's or doctoral degree who is licensed to practice; Clinic: Rainajelly Gomes, [facility] Hospital: Nayeli LorenzoriAmandakiesha, [facility], Suman Nesha, [facility], Kika Katarzyna, [facility], Monica Jackson, [facility] Patient Care Human Resources Safety Manager (PCRM): A registered nurse who coordinates care for patients returning home from the hospital and assists in coordinating home care; Clinic: Alissa Hunt, [facility], Hospital: Felicitas Campos, RN, Yoselyn Lange , [facility], Antonio Jeffrey, [facility]. MEDICAL RECORDS The Release of Information (ROSALBA) area is staffed from 8:00 a.m. to 7:00 p.m. and is available for walk in requests from 8:00 a.m. to 4:30 p.m. [facility] is responsible for answering requests for copies of medical records from various requestors such as insurance companies, hospitals and patients. Please note it can take up to 2 weeks to complete your request. [phone] DISABILITY FORMS This category includes any form [...] for a private room? All rooms at [facility] are private. Do you have a social scientist available? A social scientist is assigned to our team. How can [...] my surgery? Yes. The precertification department at [facility] will notify your insurance carrier. Who should I contact if I anticipate difficulty paying my bill? We want to make sure all patients have access to the quality healthcare services of [facility], and we are committed to working with you and your family to obtain appropriate financial assistance. You may contact the Office of Financial Counseling [phone] weekdays between 8am and 5pm to help determine whether you might qualify for an assistance program. Do I need to bring clothes from home to wear at the hospital? The [facility] will provide you with personal items. You may wish to bring a robe or slippers. Does the [facility] have a designated area for smoking? The [facility] does not permit smoking inside or outside the hospitals including parking areas and sidewalks. If you would like to quit, you can contact a tobacco scalp treatment specialist at [phone] or the [place] Tobacco QUIT LINE at [phone] [phone]. Where can I find information about visitation, [...] someone after business hours? The office number, [phone] or [phone], is connected to an answering service after 4:30pm each weekday and on weekends, available 08/02. What number should I call if I have billing questions? Please call [facility] s Central Business Office at [phone]. Please Note: In regards to alf pain control. You may need narcotic pain [...] the hospital. Do not wear makeup, nail estonian or hair pins to the hospital. Please [...] pulp Popsicles Ice Soft drinks Gatorade (Lemon Chinik preferred) Clear broth or bouillon Jello Coffee [...] not red, orange, or purple in color. Lemon-[place] is preferred. You may need to pour [...] HOSPITAL Tobacco Dependency Clinic, National Quit Line, [employer], [employer], Smokefree.gov website Stop Alcohol Use [...] helpful:Alcoholics Anonymous (AA) http://www.aa.org/ Rethinking Drinking https://www.rethinkingdrinking.ni page [facility].nih.gov/ National [place] of Alcohol Abuse and Alcoholism https://niaaa.nih.gov/ [place] [phone] -Inpatient, partial hospitalization and outpatient services for [...] Patient Controlled Analgesia (also known as a SYSTEMS INTEGRATION ENGINEER) A SYSTEMS INTEGRATION ENGINEER is a pain pump that could [...] AM of surgery documented in this encounter [facility] 02-19-2022 Miscellaneous Notes Addended by: KARINE GALVAN on: 02/19/2022 04:15 PM Modules accepted: Orders INTESTINAL REFERRAL Let the person providing referral info know that you must speak directly to the patient. Our team cannot proceed with intake without communicating directly with the patient. 1) What is your (the patient's) direct phone contact number?- [phone] 2) What is your referring diagnosis? Appendix [...] resources available to cover travel expenses to [facility]? Yes We are currently flexible in offering initial virtual consultations for both surgery and transplant ONLY to patients living in [place], [place], and [place] through May 18, 2022. This may expand to other states depending on where the surgeon who conducts your initial visit is licensed (Dr. Wyatt is licensed in [place], [place], and [place]). If you are living in another state and desire an initial virtual consultation, you may choose to purchase a [facility] - Addiction Treatment Reviews & Information. (Surgical or transplant evaluations are highly individualized and may be conducted either through your local providers or at the [facility]. The plan for your evaluation will [...] for any pre-surgical testing done at the [facility], and for any post-surgical stay in [place] depending on your post-surgical course. 8) Would you be interested in participating in [facility] Virtual Visits for the psychosocial screening? - Yes If the patient says no, proceed as normal. If yes, please e-mail the patient and copy the social scientist on it. She will need them to [...] have been over the past 1 year? [facility] (Submit ALL template in E-health, AND for [...] On medication - Psychiatrist (Submit request in [email or web address]) 15) Do you have a Power of Aircraft Painter Apprentice (POA)? Do you have a Living Will?- No If so, please bring a copy of this to your appointment. 16) For females: When and where was your last mammogram (40 and up) and pap smear (16 and up)? - Needs to be within last year.- PAP- Never had & Mammo- No (Submit request in [email or web address]) 17) For all patients: When and where was your last dental visit? - Needs to be within last 6 months.- about 6 months ago (Submit request in [email or web address]) 18) If transplant- Ask patient to obtain their immunization records and have them sent to us via mail/fax.- COVID- Yes The patient has been entered into Edit, chart is created, and request to [employer] for medical records has been generated. Financial clearance has been submitted for rehab/transplant (if on TPN or has dysmotility, submit for both rehab & transplant). Chart will be given to telecom coordinator. Referral received from Dr. Rodney Olivas from [facility] ([phone]) to Dr. Davies. 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 Will call patient to start intake. documented in this encounter [facility] 12-22-2021 Evaluation note Encounter Date Diagnosis [...] Follow up with primary care provider or relationship executive if no improvement of symptoms. 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 [facility] Diagnosis Primary malignant neuroendocrine tumor of appendix Post-operative pain Other acute postoperative pain Primary malignant neuroendocrine tumor of appendix [facility] Diagnosis Primary malignant neuroendocrine tumor of appendix- Primary [facility] Diagnosis Primary malignant neuroendocrine tumor of appendix- Primary [facility] Diagnosis Primary malignant neuroendocrine tumor of appendix [facility] Diagnosis Primary malignant neuroendocrine tumor of appendix [facility] Diagnosis Carcinoid syndrome- Primary SOB (shortness of breath) Shortness of breath Tachycardia Tachycardia, unspecified Antinuclear antibody (HUNTER) titer greater than 1:80 Primary malignant neuroendocrine tumor of appendix [facility] Diagnosis Primary malignant neuroendocrine tumor of appendix documented [facility] Diagnosis Carcinoid syndrome SOB (shortness of breath) Shortness of breath Tachycardia Tachycardia, unspecified Primary malignant neuroendocrine tumor of appendix documented [facility] Diagnosis Fibromyalgia muscle pain- Primary Mylagia and myositis, unspecified [facility] Diagnosis Primary malignant neuroendocrine tumor of appendix- Primary [facility] Diagnosis Primary malignant neuroendocrine tumor of appendix [facility] Diagnosis 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 Tachycardia Tachycardia, unspecified SOB (shortness of breath) Shortness of breath [facility] Diagnosis 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 Neoplasm of unspecified nature of digestive system documented [facility] note[facility] assessment information available [facility] Work Phone: Evaluation note* Diagnosis Primary malignant neuroendocrine tumor of appendix- Primary [facility] Diagnosis Primary malignant neuroendocrine tumor of appendix documented [facility] Diagnosis Primary malignant neuroendocrine tumor of appendix- Primary Primary malignant neuroendocrine tumor of appendix documented [facility] Diagnosis Primary malignant neuroendocrine tumor of appendix [facility] Diagnosis Colitis Other and unspecified noninfectious gastroenteritis and colitis Black stools Nonspecific abnormal finding in stool contents [facility] - [facility]orted* Type Description Date Medical History chronic depression [employer] Other Hospital course Narrative No data available for this section [facility] Hospital Discharge instructions No data available for this section [facility] InstructionsNot on filedocumented in this encounter [facility] filedocumented in this encounter [facility] No data available for this section [facility] Reason for referral (narrative)* (Routine) Specialty Diagnoses / Procedures Referred By Contac t Referred To Contact ISRRAEL Demarco Crow [address] [place] [phone] Referral ID Status Reason Start Date Expiration Date Visits Re quested Visits Authorized * (Routine) - New Request Specialty Diagnoses / Procedures Referred By Contac t Referred To Contact Procedures PLATELET MONITORING PER PROTOCOL Archie Hugo MD, PhD [address] [place] [address] Referral ID Status Reason Start Date Expiration Date V isits Requested Visits Authorized [id number] New Request 05/22/2022 06/16/2023 1 1 * (Routine) - New Request Specialty Diagnoses / Procedures Referred By Contac t Referred To Contact Procedures DVT/VTE RISK ASSESSMENT Archie Hugo MD, PhD [address] [place] [address] Referral ID Status Reason Start Date Expiration Date V isits Requested Visits Authorized [id number] New Request 05/22/2022 06/16/2023 1 1 * (Routine) - New Request Specialty Diagnoses / Procedures Referred By Contac t Referred To Contact Procedures NO MECHANICAL DVT PROPHYLAXIS Liza Cisneros PA-C [address] [place] [address] Referral ID Status Reason Start Date Expiration Date V isits Requested Visits Authorized [id number] New Request 05/22/2022 06/16/2023 1 1 [facility] for referral (narrative)* Consultation (Routine) - New Request Specialty Diagnoses / Procedures Referred By Contac t Referred To Contact Oncology Diagnoses Primary malignant neuroendocrine tumor of appendix Raina Gomes WILDLIFE AND GAME PROTECTOR-SHEET METAL FORMER [address] [place] [address] Andreas Ortega MD, MPH [facility] [address] [place] [address] Referral ID Status Reason Start Date Expiration Date V isits Requested Visits Authorized [id number] New Request 06/09/2022 07/04/2023 1 1 * MRI/CAT Scan (Routine) - New Request Specialty Diagnoses / Procedures Referred By Contac t Referred To Contact Diagnoses Primary malignant neuroendocrine tumor of appendix Procedures CT ABDOMEN/PELVIS WITH CONTRAST CHG CT SCAN,ABDOMENT AND PELVIS,W CONTRAST Raina Gomes WILDLIFE AND GAME PROTECTOR-SHEET METAL FORMER [address] [place] [address] Referral ID Status Reason Start Date Expiration Date V isits Requested Visits Authorized [id number] New Request 06/09/2022 07/04/2023 1 1 [facility] for referral (narrative)* Consultation (Routine) - New Request Specialty Diagnoses / Procedures Referred By Contac t Referred To Contact Genetics Diagnoses Primary malignant neuroendocrine tumor of appendix Yudelka Moralez APRN-SHEET METAL FORMER [address] [place] [address] Erin Stoner, [facility] [address] [address] Referral ID Status Reason Start Date Expiration Date V isits Requested Visits Authorized [id number] New Request 07/08/2022 08/02/2023 1 1 * MRI/CAT Scan (Routine) - New Request Specialty Diagnoses / Procedures Referred By Contac t Referred To Contact Diagnoses Primary malignant neuroendocrine tumor of appendix Procedures CT ABDOMEN/PELVIS WITH AND WITHOUT CONTRAST CHG CT SCAN,ABDOMENT AND PELVIS,Andreas Ellis MD, MPH [address] [place] [phone] Referral ID Status Reason Start Date Expiration Date V isits Requested Visits Authorized [id number] New Request 07/08/2022 08/02/2023 1 1 * Radiology (Routine) - New Request Specialty Diagnoses / Procedures Referred By Contac t Referred To Contact Diagnoses Primary malignant neuroendocrine tumor of appendix Procedures NUC PET NEUROENDOCRINE CHG NUC THERAPY HYPERTHYROID SUBSEQUENT Yudelka Moralez APRN-SHEET METAL FORMER [address] [place] [address] Referral ID Status Reason Start Date Expiration Date V isits Requested Visits Authorized [id number] New Request 07/08/2022 08/02/2023 1 1 [facility]* Auth/Cert Specialty Diagnoses / Procedures Referred By Katharine morales Referred To Contact Diagnoses 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] Procedures AR CHG HYPERTHERMIA RX INTRACAV PROBE AR PART REMOVAL COLON W ANASTOMOSIS AR RESECT RECURRENT COAL HANDLER MALIG 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) COLECTOMY PARTIAL OPEN DEBULKING INTRA-ABDOMINAL/PELVIC/RETROPE RITONEAL W/ OMENECTOMY & PELVIC PARA-AORTIC LYMPHADENECTOMY Archie Hugo MD, PhD [address] [place] [address] [facility] [address] [place] [address] Referral ID Status Reason Start Date Expiration Date Visits Re quested Visits Authorized [id number] 1 1 [facility] Summary Purpose Family History No Family History [...] liver enzymes Procedures TRANSIENT ELASTOGRAPHY Dolores Johnson APRN-SHEET METAL FORMER [address] [place] [address] Referral ID Status Reason Start Date Expiration Date V isits Requested Visits Authorized [id number] New Request 11/26/2023 12/20/2024 1 1 Specialty Diagnoses / Procedures Referred By Katharine t Referred To Contact Echocardiography Diagnoses Carcinoid syndrome SOB (shortness of breath) Tachycardia Procedures ECHOCARDIOGRAM AR ECHO HEART XTHORACIC,COMPLETE W DOPPLER Yudelka Moralez APRN-SHEET METAL FORMER [address] [place] [address] Echocardiography [place] [address] [place] [address] [address] [place] [address] Referral ID Status Reason Start Date Expiration Date V isits Requested Visits Authorized [id number] Auth Not Needed 10/07/2022 11/01/2023 1 1 Specialty Diagnoses / Procedures Referred By Contac t Referred To Contact Diagnoses Primary malignant neuroendocrine tumor of appendix Procedures CT NECK WITH CONTRAST AR CT NECK TISSUE CONTRAST [facility]elka [facility] [address] [place] [phone] Referral ID Status Reason Start Date Expiration Date V isits Requested Visits Authorized [id number] New Request 10/07/2022 11/01/2023 1 1 Specialty Diagnoses / Procedures Referred By Contac t Referred To Contact Diagnoses Carcinoid syndrome SOB (shortness of breath) Tachycardia Primary malignant neuroendocrine tumor of appendix Procedures CT CHEST WITH CONTRAST CHG DIAGNOSTIC COMPUTED TOMOGRAPHY THORAX W/CONTRAST uYdelka Moralez [facility] [address] [place] [phone] Referral ID Status Reason Start Date Expiration Date V isits Requested Visits Authorized [id number] New Request 10/07/2022 11/01/2023 1 1 Specialty Diagnoses / Procedures Referred By Contac t Referred To Contact Oncology Diagnoses Carcinoid syndrome SOB (shortness of breath) Tachycardia Yudelka Moralez APRN-[facility] [address] [place] [address] Referral ID Status Reason Start Date Expiration Date V isits Requested Visits Authorized [id number] New Request 10/07/2022 11/01/2023 1 1 Specialty Diagnoses / Procedures Referred By Contac t Referred To Contact Rheumatology Diagnoses Antinuclear antibody (HUNTER) titer greater than 1:80 Yudelka Moralez [facility] [address] [place] [phone] Referral ID Status Reason Start Date Expiration Date V isits Requested Visits Authorized [id number] New Request 10/07/2022 11/01/2023 1 1 Specialty Diagnoses / Procedures Referred By Contac t Referred To Contact Diagnoses Primary malignant neuroendocrine tumor of appendix Procedures CT ABDOMEN/PELVIS WITH CONTRAST CHG CT SCAN,ABDOMENT AND PELVIS,W CONTRAST Raina Gomes APRN-SHEET METAL FORMER [address] [facility] [address] [place] [address] Referral ID Status Reason Start Date Expiration Date Visits Re quested Visits Authorized [id number] Closed 03/19/2022 04/13/2023 1 1 Specialty Diagnoses / Procedures Referred By Katharine morales Referred To Contact TRANSPLANT Diagnoses Cancer of appendix (HCC) Procedures CONSULT TO TRANSPLANT CENTER EXPLORATORY LAPAROTOMY CELIOTOMY W/WO BIOPSY SPX Vernon Davies MD [address] [place] [address] [facility] [address] [place] [address] Referral ID Status Reason Start Date Expiration Date Visits Requested Visits Authorized [id number] Pending Review Financial Clearance Required - OON Payor 02/19/2022 02/19/2023 99 99 Chief Complaint and Reason for Visit Chief Complaint n63.0 Chief Complaint n63.0 Unknown Additional Source Comments INFORMATION SOURCE (unrecogn ized section and content) DATE CREATED AUTHOR [facility]/19/2021 [facility] DATE CREATED AUTHOR AUTHOR'S ORGANIZ ATION 12/25/2022 [facility] DATE CREATED AUTHOR AUTHOR'S ORGANIZ ATION 11/13/2023 [facility] EPIC DATE CREATED AUTHOR AUTHOR'S ORGANIZ ATION 02/10/2024 [facility] DATE CREATED AUTHOR AUTHOR'S ORGANIZ ATION 04/21/2024 [facility] DATE CREATED AUTHOR AUTHOR'S ORGANIZ ATION 04/26/2024 [facility] DATE CREATED AUTHOR AUTHOR'S ORGANIZ ATION 07/07/2024 [facility] ys[facility] Group REASON FOR VISIT (unrecogniz ed section and content) Reason Comments Referral Request Specialty Diagnoses / Procedures Referred By Katharine morales Referred To Contact Diagnoses Primary malignant neuroendocrine tumor of appendix Procedures CT ABDOMEN/PELVIS WITH CONTRAST CHG CT SCAN,ABDOMENT AND PELVIS,W CONTRAST Raina Gomes, WILDLIFE AND GAME PROTECTOR-SHEET METAL FORMER [address] [place] [address] Referral ID Status Reason Start Date Expiration Date Visits Re quested Visits Authorized [id number] Closed 03/19/2022 04/13/2023 1 1 Reason Comments New Patient Specialty Diagnoses / Procedures Referred By Contac t Referred To Contact Surgical Oncology Diagnoses New patient - Appendix NET - External: Dr. Timmy Hall - Preferred: Oanh Procedures NEW ISRRAEL SURGERY Self, Self Archie Hugo MD, PhD [address] [place] [address] Referral ID Status Reason Start Date Expiration Date Visits Re quested Visits Authorized [id number] Closed 03/19/2022 04/13/2023 1 1 Reason Comments [...] malignant neuroendocrine tumor of appendix Raina Gomes, WILDLIFE AND GAME PROTECTOR-[facility] [address] [place] [address] Andreas Ortega MD, MPH [address] [place] [phone] Referral ID Status Reason Start Date Expiration Date V isits Requested Visits Authorized [id number] New Request 06/09/2022 07/04/2023 1 1 Specialty Diagnoses / Procedures Referred By Contac t Referred To Contact Diagnoses Primary malignant neuroendocrine tumor of appendix Procedures NUC PET NEUROENDOCRINE CHG NUC THERAPY HYPERTHYROID SUBSEQUENT Yudelka Moralez, WILDLIFE AND GAME PROTECTOR-SHEET METAL FORMER [address] [place] [address] Referral ID Status Reason Start Date Expiration Date Visits Re quested Visits Authorized [id number] Closed 07/08/2022 08/02/2023 1 1 Specialty Diagnoses / Procedures Referred By Contac t Referred To Contact Diagnoses Primary malignant neuroendocrine tumor of appendix Procedures CT ABDOMEN/PELVIS WITH AND WITHOUT CONTRAST CHG CT SCAN,ABDOMENT AND PELVIS,Andreas Ellis MD, MPH [address] [address] Referral ID Status Reason Start Date Expiration Date Visits Re quested Visits Authorized [id number] Closed 07/08/2022 08/02/2023 1 1 Reason Comments [...] of appendix Procedures CT NECK WITH CONTRAST AR CT NECK TISSUE CONTRAST Yudelka Moralez APRN-[facility] [address] [place] [address] Referral ID Status Reason Start Date Expiration Date Visits Re quested Visits Authorized [id number] Closed 10/07/2022 11/01/2023 1 1 Specialty Diagnoses / Procedures Referred By Katharine morales Referred To Contact Echocardiography Diagnoses Carcinoid syndrome SOB (shortness of breath) Tachycardia Procedures ECHOCARDIOGRAM AR ECHO HEART XTHORACIC,COMPLETE W DOPPLER Yudelka Moralez APRN-[facility] [address] [place] [phone] Echocardiography [place] [address] [place] [address] Referral ID Status Reason Start Date Expiration Date Visits Re quested Visits Authorized [id number] Closed 10/07/2022 11/01/2023 1 1 Specialty Diagnoses / Procedures Referred By Katharine morales Referred To Contact Diagnoses Carcinoid syndrome SOB (shortness of breath) Tachycardia Primary malignant neuroendocrine tumor of appendix Procedures CT CHEST WITH CONTRAST CHG DIAGNOSTIC COMPUTED TOMOGRAPHY THORAX W/CONTRAST Yudelka Moralez APRN-SHEET METAL FORMER [address] [place] [phone] Referral ID Status Reason Start Date Expiration Date Visits Re quested Visits Authorized [id number] Closed 10/07/2022 11/01/2023 1 1 Reason Comments New Patient Referred by Dorothy Moralez NP for JR. 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 Joint achy/flu symptoms, tachcardia, + HUNTER. Specialty Diagnoses / Procedures [facility] Referred To Contact Rheumatology / Hematology & Oncology Procedures NEW PATIENT Andreas Ortega MD, MPH [address] [facility] [address] [place] [address] Rebekah Suero MD [address] [place] [address] [address] [place] [address] Referral ID Status Reason Start Date Expiration Date V isits Requested Visits Authorized [id number] New Request 10/22/2022 11/16/2023 1 1 Reason Comments Labs Only Specialty Diagnoses / Procedures [facility] Referred To Contact Diagnoses 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 Procedures MRI ABDOMEN/PELVIS WITHOUT CONTRAST AR MRI, ABDOMEN (MRI) AR MRI, PELVIS, W/O CONTRAST Yudelka Moralez APRN-SHEET METAL FORMER [address] [place] [address] Referral ID Status Reason Start Date Expiration Date Visits Re quested Visits Authorized [id number] Closed 03/09/2023 04/02/2024 1 1 Reason Comments Routine Visit Referral ID Status Reason Start Date Expiration Date Visits Re quested Visits Authorized [id number] Closed 04/06/2023 04/30/2024 1 1 Reason Comments New Patient Specialty Diagnoses / Procedures [facility] Referred To Contact Gastroenterology Diagnoses Hepatomegaly Transaminitis Yudelka Moralez APRN-SHEET METAL FORMER [address] [place] [address] Referral ID Status Reason Start Date Expiration Date V isits Requested Visits Authorized [id number] Pending Review 11/10/2023 12/04/2024 1 1 Reason Comments New Patient Specialty Diagnoses / Procedures [facility] Referred To Contact Oncology Diagnoses Low grade mucinous neoplasm of appendix Yudelka Moralez, WILDLIFE AND GAME PROTECTOR-SHEET METAL FORMER [address] [place] [address] Referral ID Status Reason Start Date Expiration Date Visits Re quested Visits Authorized [id number] Closed 11/10/2023 12/04/2024 1 1 Specialty Diagnoses / Procedures [facility] Referred To Contact Diagnoses 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 Procedures CT ABDOMEN/PELVIS WITH AND WITHOUT CONTRAST CHG CT SCAN,ABDOMENT AND PELVIS,COMBO Yudelka Moralez APRN-SHEET METAL FORMER [address] [place] [phone] Referral ID Status Reason Start Date Expiration Date Visits Re quested Visits Authorized [id number] Closed 11/10/2023 12/04/2024 1 1 Reason Onset Date Comments Advice Only 03/13/2024 Reason Onset Date Comments Change In Symptoms 04/11/2024 Specialty Diagnoses / Procedures [facility] Referred To Contact Diagnoses Primary malignant neuroendocrine tumor of appendix Procedures CT ABDOMEN/PELVIS WITH AND WITHOUT CONTRAST CHG CT ABDOMEN & PELVIS W/O CONTRST 1/> BODY RE Andreas Ortega MD, MPH [address] [facility] [address] [place] [address] Referral ID Status Reason Start Date Expiration Date Visits Re quested Visits Authorized [id number] Closed 04/11/2024 2025 1 1 Specialty Diagnoses / Procedures [facility] Referred To Contact Diagnoses Primary malignant neuroendocrine tumor of appendix Procedures NUC PET NEUROENDOCRINE CHG PET IMAGING CT ATTENUATION SKULL BASE MID-THIGH Yudelka Moralez APRN-SHEET METAL FORMER [address] [place], [place] Referral ID Status Reason Start Date Expiration Date Visits Re quested Visits Authorized [id number] Closed 03/06/2024 03/31/2025 1 1 Source Comments (unrecognize d section and content) In the event this informatio n is protected by the Federal Confidentiality of Alcohol and Drug Abuse Patient Records regulations: The Federal rules restrict any use of the information to criminally investigate or prosecute any alcohol or drug abuse patient.[facility] Care Teams (unrecognized sec tion and content) Breaker Table Worker Relationship Specialty Start Date End Date Erin Sams RN PCP - General 03/19/22 Rodney Olivas MD [address] [place] [address] 74246 Hematology 03/19/22 Breaker Table Worker Relationship Specialty Start Date End Date Erin Sams RN PCP - General 03/19/22 Rodney Olivas MD [address] [place] [address] 31915 Hematology 03/19/22 Breaker Table Worker Relationship Specialty Start Date End Date Erin Sams RN PCP - General 03/19/22 Rodney Olivas MD [address] [place] [address] 37557 Hematology 03/19/22 Breaker Table Worker Relationship Specialty Start Date End Date Erin Sams RN PCP - General 03/19/22 Rodney Olivas MD [address] [place] [address] 72784 Hematology 03/19/22 Breaker Table Worker Relationship Specialty Start Date End Date Erin Sams RN PCP - General 03/19/22 Rodney Olivas MD [address] [place] [address] 28689 Hematology 03/19/22 Archie Hugo MD, PhD [address] [place] [address] Surgeon Surgical Oncology 07/08/22 Breaker Table Worker Relationship Specialty Start Date End Date Erin Sams RN PCP - General 03/19/22 Rodney Olivas MD [address] [place] [address] 92550 Hematology 03/19/22 Archie Hugo MD, PhD [address] [place] [address] Surgeon Surgical Oncology 07/08/22 Breaker Table Worker Relationship Specialty Start Date End Date Erin Sams RN PCP - General 03/19/22 Rodney Olivas MD [address] [place] [address] 18869 Hematology 03/19/22 Archie Hugo MD, PhD [address] [place] [address] Surgeon Surgical Oncology 07/08/22 Breaker Table Worker Relationship Specialty Start Date End Date Erin Sams RN PCP - General 03/19/22 Rodney Olivas MD [address] [place] [address] 12027 Hematology 03/19/22 Archie Hugo MD, PhD [address] [place] [address] Surgeon Surgical Oncology 07/08/22 Cheikh Coelho MD [address] [place] [phone] Lead Pressman [employer] Cardiovascular Disease 10/07/22 Breaker Table Worker Relationship Specialty Start Date End Date Erin Sams RN PCP - General 03/19/22 Rodney Olivas MD [address] [place] [address] 25037 Hematology 03/19/22 Archie Hugo MD, PhD [address] [place] [address] Surgeon Surgical Oncology 07/08/22 Cheikh Coelho MD [address] [facility] [address] Lead Pressman [employer] Cardiovascular Disease 10/07/22 Breaker Table Worker Relationship Specialty Start Date End Date Erin Sams RN PCP - General 03/19/22 Rodney Olivas MD [address] [place] [address] 69160 Hematology 03/19/22 Archie Hugo MD, PhD [address] [place] [address] Surgeon Surgical Oncology 07/08/22 Cheikh Coelho MD [address] [place] [phone] Lead Pressman [employer] Cardiovascular Disease 10/07/22 Breaker Table Worker Relationship Specialty Start Date End Date Erin Sams RN PCP - General 03/19/22 Rodney Olivas MD [address] [place] [address] 75676 Hematology 03/19/22 Archie Hugo MD, PhD [address] [place] [address] Surgeon Surgical Oncology 07/08/22 Cheikh Coelho MD [address] [place] [address] Lead Pressman [employer] Cardiovascular Disease 10/07/22 Breaker Table Worker Relationship Specialty Start Date End Date Erin Sams RN PCP - General 03/19/22 Rodney Olivas MD [address] [place] [address] 66370 Hematology 03/19/22 Archie Hugo MD, PhD [address] [place] [address] Surgeon Surgical Oncology 07/08/22 Cheikh Coelho MD [address] [place] [address] Lead Pressman [employer] Cardiovascular Disease 10/07/22 Breaker Table Worker Relationship Specialty Start Date End Date Erin Sams SHEET METAL FORMER [address] [place] [address] PCP - General 03/10/23 Rodney Olivas MD [address] [place] [address] [phone] Hematology 03/19/22 Archie Hugo MD, PhD [address] [place] [address] Surgeon Surgical Oncology 07/08/22 Cheikh Coelho MD [address] [place] [address] Lead Pressman [employer] Cardiovascular Disease 10/07/22 Breaker Table Worker Relationship Specialty Start Date End Date Erin Sams SHEET METAL FORMER [address] [place] [phone] PCP - General 03/10/23 Rodney Olivas MD [address] [place] [address] 56800 Hematology 03/19/22 Archie Hugo MD, PhD [address] [place] [address] Surgeon Surgical Oncology 07/08/22 Cheikh Coelho MD [address] [place] [address] Lead Pressman [employer] Cardiovascular Disease 10/07/22 Breaker Table Worker Relationship Specialty Start Date End Date Erin Sams, SHEET METAL FORMER [address] [place] [address] PCP - General 03/10/23 Rodney Olivas MD [address] [place] [address] Hematology 03/19/22 Archie Hugo MD, PhD [address] [place] [address] Surgeon Surgical Oncology 07/08/22 Cheikh Coelho MD [address] [place] [address] Lead Pressman [employer] Cardiovascular Disease 10/07/22 Andreas Ortega MD, MPH [address] [facility] [address] [place] [address] Oncologist Medical Oncology 03/31/23 Ron Ruano DO [address] [facility] [address] [place] [address] Obstetrics & Gynecology 04/06/23 Breaker Table Worker Relationship Specialty Start Date End Date Erin Sams CNP [address] [place] [address] PCP - General 03/10/23 Rodney Olivas MD [address] [place] [address] Hematology 03/19/22 Archie Hugo MD, PhD [address] [place] [address] [place] [address] Surgeon Surgical Oncology 07/08/22 Cheikh Coelho MD [address] [place] [address] Lead Pressman [employer] Cardiovascular Disease 10/07/22 Andreas Ortega MD, MPH [address] [place] [address] [place] [address] Oncologist Medical Oncology 03/31/23 Ron Ruano DO [address] [facility] 1 [place] [address] Obstetrics & Gynecology 04/06/23 Breaker Table Worker Relationship Specialty Start Date End Date Erin Sams, SHEET METAL FORMER [address] [facility] [place] [address] PCP - General 03/10/23 Rodney Olivas MD [address] [place] [address] Hematology 03/19/22 Archie Hugo MD, PhD [address] [facility] [address] [place] [address] Surgeon Surgical Oncology 07/08/22 Cheikh Coelho MD [address] [place] [address] Lead Pressman [employer] Cardiovascular Disease 10/07/22 Andreas Ortega MD, MPH [address] [place] [address] [place] [address] Oncologist Medical Oncology 03/31/23 Ron Ruano DO [address] [facility] 1 [place] [address] Obstetrics & Gynecology 04/06/23 Breaker Table Worker Relationship Specialty Start Date End Date Erin Sams, SHEET METAL FORMER [address] [place] [address] PCP - General 03/10/23 Rodney Olivas MD [facility] [place] [address] Hematology 03/19/22 Archie Hugo MD, PhD [address] [place] [address] [place] [address] Surgeon Surgical Oncology 07/08/22 Cheikh Coelho MD [address] [place] [address] Lead Pressman [employer] Cardiovascular Disease 10/07/22 Andreas Ortega MD, MPH [address] [place] [address] [place] [address] Oncologist Medical Oncology 03/31/23 Ron Ruano DO [address] [facility] 1 [place] [address] Obstetrics & Gynecology 04/06/23 Breaker Table Worker Relationship Specialty Start Date End Date Erin Sams, SHEET METAL FORMER [address] [facility] [place] [address] PCP - General 03/10/23 Rodney Olivas MD [address] [place] [address] Hematology 03/19/22 Cheikh Coelho MD [address] [place] [address] Lead Pressman [employer] Cardiovascular Disease 10/07/22 Andreas Ortega MD, MPH [address] [place] [address] Oncologist Medical Oncology 03/31/23 Ron Ruano DO [address] [place] [address] Obstetrics & Gynecology 04/06/23 Dolores Johnson, WILDLIFE AND GAME PROTECTOR-SHEET METAL FORMER [address] [place] [address] Scoop Filler Certified Nurse Practitioner 02/10/24 Carol Summers MD, PhD [address] [place] [address] [place] [address] Oncologist Medical Oncology 02/10/24 Diego Apodaca MD [address] [place] [phone] Gastroenterology 02/16/24 Team Status: Active Member Role Status Dates DONELL Meehan Primary Care Provider Active Team Status: Inactive Member Role Status Dates DONELL Meehan Primary Care Pr ovider, Attending Provider, Referring Provider Active Start: April 03, 2024 End: April 03, 2024 Breaker Table Worker Relationship Specialty Start Date End Date Erin Sams CNP [address] [facility] [place] [address] PCP - General 03/10/23 Rodney Olivas MD Hematology 03/19/22 Cheikh Coelho MD [address] [place] [address] Lead Pressman [employer] Cardiovascular Disease 10/07/22 Andreas Ortega MD, MPH [address] [place] [place] [address] Oncologist Medical Oncology 03/31/23 Ron Ruano DO [address] [facility] 1 [place] [address] Obstetrics & Gynecology 04/06/23 Dolores Johnson, WILDLIFE AND GAME PROTECTOR-SHEET METAL FORMER [address] [place] [address] Scoop Filler Certified Nurse Practitioner 02/10/24 Carol Summers MD, PhD [address] [place] [address] Oncologist Medical Oncology 02/10/24 Diego Apodaca MD [address] [place] [address] AVE [facility] [address] [place] [address] Gastroenterology 02/16/24 Breaker Table Worker Relationship Specialty Start Date End Date Erin Sams SHEET METAL FORMER [address] [facility] [place] [address] PCP - General 03/10/23 Rodney Olivas MD Hematology 03/19/22 Cheikh Coelho MD [address] [place] [address] Lead Pressman [employer] Cardiovascular Disease 10/07/22 Andreas Ortega MD, MPH [address] [place] [address] [place] [address] Oncologist Medical Oncology 03/31/23 Ron Ruano DO [address] [facility] 1 [place] [address] Obstetrics & Gynecology 04/06/23 Dolores Johnson, WILDLIFE AND GAME PROTECTOR-SHEET METAL FORMER [address] [place] [address] Scoop Filler Certified Nurse Practitioner 02/10/24 Carol Summers MD, PhD [address] [place] [address]th [place] [address] Oncologist Medical Oncology 02/10/24 Diego Apodaca MD [address] [place] [address] Gastroenterology 02/16/24 Breaker Table Worker Relationship Specialty Start Date End Date Erin Sams SHEET METAL FORMER [address] [facility] [place] [address] PCP - General 03/10/23 Rodney Olivas MD Hematology 03/19/22 Cheikh Coelho MD [address] [place] [address] Lead Pressman [employer] Cardiovascular Disease 10/07/22 Andreas Ortega MD, MPH [address] [place] [place] [address] Oncologist Medical Oncology 03/31/23 Ron Ruano DO [address] [facility] 1 [place] [address] Obstetrics & Gynecology 04/06/23 Dolores Johnson, WILDLIFE AND GAME PROTECTOR-SHEET METAL FORMER [address] [place] [address] [place] [address] Scoop Filler Certified Nurse Practitioner 02/10/24 Carol Summers MD, PhD [address] [place] [address] [place] [address] Oncologist Medical Oncology 02/10/24 Diego Apodaca MD [address] [place] [address] Gastroenterology 02/16/24 Breaker Table Worker Relationship Specialty Start Date End Date Erin Sams CNP [address] [facility] [place] [address] PCP - General 03/10/23 Rodney Olivas MD Hematology 03/19/22 Cheikh Coelho MD [address] [place] [address] Lead Pressman [employer] Cardiovascular Disease 10/07/22 Andreas Ortega MD, MPH [address] [place] [address] [place] [address] Oncologist Medical Oncology 03/31/23 Ron Ruano DO [address] [facility] 1 [place] [address] Obstetrics & Gynecology 04/06/23 Dolores Johnson APRN-SHEET METAL FORMER [address] [place] [address] Scoop Filler Certified Nurse Practitioner 02/10/24 Carol Summers MD, PhD [address] [place] [address] [place] [address] Oncologist Medical Oncology 02/10/24 Diego Apodaca MD [address] [place], [place] [address] [address] [address] Gastroenterology 02/16/24 Team Status: Inactive Member Role Status Dates Erin Sams NP-C Primary Care Provider Active Start: May 03, 2024 End: May 03, 2024 Timmy Hall DO Attending Provider Active Start: May 03, 2024 End: May 03, 2024 Breaker Table Worker Relationship Specialty Start Date End Date Erin Sams APRN-CNP [address] [facility] [place] [address] [phone] PCP - General Family Medicine 02/11/22 Breaker Table Worker Relationship Specialty Start Date End Date Erin Sams APRN-CNP [address] [facility] [place] [address] PCP - General Family Medicine 02/11/22 Breaker Table Worker Relationship Specialty Start Date End Date Erin Sams APRN-CNP [address] [facility] [place] [address] PCP - General Family Medicine 02/11/22 Scheduled Active and Recently Administ ered Medications [...] RUPERT) 0613 (Given - Provider: Craig Pagan, RN)1400 [...] at home) 0917 (Not Given - Provider: Tanai Louis RN - Reason: Patient/family refused) 0714 (Not Given - Provider: Tania Louis RN - Reason: Patient/family refused) ibuprofen (MOTRIN) tablet 600 mg 600 mg, Oral, EVERY 6 HOURS, First dose on Wed05/26/22 at 1800, Until Discontinued, Give with food 0001 (Given - Provider: Yadira Grier RN)0700 (Given - Provider: Yadira Grier RN)1350 (Given - Provider: Alena Wade RN)1847 (Given - Provider: Alena Wade, RUPERT)2324 (Not Given - Provider: Craig Pagan, RUPERT - Reason: Patient/family refused) 0604 (Given - Provider: Craig Pagan, RUPERT)1213 (Given - Provider: Yvrose Chamberlain RN)1730 (Given - Provider: Tania Louis, RUPERT) 0134 (Not Given - Provider: Craig Pagan, RUPERT - Reason: Patient/family refused)0613 (Given - Provider: Craig Pagan, RUPERT)1200 (Canceled Entry - Provider: System Discharge - [...] do not crush or chew., Indications: GERD 16 (Given - Provider: Tania Louis RN) 0744 [...] Verify - Provider: Yadira Grier RN)0659 (Epidural Armorel Volume/Shift Total - Provider: Yadira Greir RN - Comment: shift total: 175 ml remaining)1105 (Rate/Dose Verify - Provider: Alena Wade RN)1122 (Rate/Dose Verify - Provider: Alena Wade RN)1459 (Rate/Dose Verify - Provider: Alena Wade RN)1555 (Rate/Dose Verify - Provider: Alena Wade RN)1848 (Rate/Dose Verify - Provider: Alena Wade RN)1849 (Rate/Dose Verify - Provider: Alena Wade RN)1910 (Epidural Armorel Volume/Shift Total - Provider: Alena Wade RN - Comment: 100mL left in cartridge) 0100 (Epidural Armorel Volume/Shift Total - Provider: Craig Pagan RN [...] Yadira Grier RN)0308 (Paused - Provider: Yadira Grier, RN)0309 (Restarted - Provider: Yadira Grier, RN)0633 (Paused - Provider: Yadira Grier, RN)0633 (Restarted - Provider: Yadira Grier, RN)0659 (Rate/Dose Verify - Provider: Yadira Grier, RN)0909 ($$New Bag$$ - Provider: Alena Wade RN)1122 (Rate/Dose Verify - Provider: Alena Wade RN)1227 (Paused - Provider: Alena Wade, RN)1239 (Restarted - Provider: Alena Wade, RN)1459 (Rate/Dose Verify - Provider: Alena Wade RN)1555 (Rate/Dose Verify - Provider: Alena Wade, RN)1846 (Canceled Entry - Provider: Alena Wade, RN)1847 (Rate/Dose Change - Provider: Alena Wade [...] Louis RN)1215 (Rate/Dose Verify - Provider: Tania Louis, RN)1354 (Rate/Dose Verify - Provider: Tania Louis, RN)1502 (Stopped - Provider: Tania Louis, RN) PRN Medication Order 05/27/2022 05/28/2022 05/29/2022 [...] Alena Wade RN)1312 (Paused - Provider: Alena Wade, RN)1314 (Restarted - Provider: Alena Wade, RN)1459 (Rate/Dose Verify - Provider: Alena Wade RN)1555 (Rate/Dose Verify - Provider: Alena Wade, RN)1726 (Paused - Provider: Alena Wade RN)1731 (Restarted - Provider: Alena Wade RN)184 (Rate/Dose Verify - Provider: Alena Wade RN)1848 (Rate/Dose Verify - Provider: Alena Wade RN)1958 [...] 05/28/22 at 1239, Until 05/29/22 at 1402, Severe Pain Goals (unrecognized section [...] BE BASED ON THE PRIMARY CLINICAL RECORDS. [employer] provides no warranty or guarantee of the accuracy or completeness of information in this document.
[2024-08-23 12:08] LABS: Age Gdln ACOG Testing Note (.); IGP, rfx Aptima HPV ASCU Note (.)
== END 2024-08-17 19:09 | disposition home or self-care (01) ==
LOC: LAB 19:08
PROVIDERS: PCP Nurse Practitioner Family; Visit Provider Physician Assistant
DX: Z01.419 Encounter for gynecological examination (general) (routine) without abnormal findings (principal)
CPT/HCPCS: 88175

== ENCOUNTER 2024-08-23 12:30 | Outpatient (OUT) | payer OTHER, SELFPAY ==
--- NOTE | 2024-08-23 12:33 | MR_ITS ---
The [address] [address] Patient Name: KRYS MARTINEZ MRN: [facility]:[id number] date: 1995 Sex: F Assigned Patient Location: MRI Current Patient Location: MRI Accession/Order Number: [id number] Exam Date: 08/23/2024 12:45 Report Date: 08/23/2024 18:34 At the request of: ELOISE SAMS Procedure: MR lumbar spine wo con EXAM: MR lumbar spine wo con HISTORY: Sciatica M54.30 COMPARISON: CT abdomen 12/21/2023, 02/03/2022 TECHNIQUE/PROTOCOL: Noncontrast lumbar spine MR protocol (Sagittal T1, T2, STIR and axial T1, T2 sequences). FINDINGS: Five lumbar-type vertebral bodies with maintained heights and alignment. No acute or aggressive marrow signal changes are identified. There is a defect in the right lamina of the L5 vertebra. There are failure of fusion of the posterior sacral elements and mild degeneration of right sacroiliac joint are identified in the previous CT abdomen studies. No acute prevertebral or paraspinal soft tissue abnormalities. Conus terminates at L1-2 level. Visualized distal spinal cord and the cauda equina are morphologically normal. There is no disc bulge/herniation, high-grade spinal canal or foraminal narrowing at any level. MR/MR lumbar spine wo con IMPRESSION: No acute abnormality, disc bulge/herniation, high-grade spinal canal or foraminal narrowing at any level. No abnormality of the spinal cord. Stable defect in the right lamina of the L5 vertebra which may represent a hemilaminectomy defect or a congenital fusion anomaly. Failure of fusion of the posterior sacral elements and mild degenerative changes of right SI joint are also identified in the previous CT abdomen studies which likely represents spina bifida occulta. Electronically authenticated by: PRISCILA CASEU Date: 08/23/2024 18:34
== END 2024-08-23 12:31 | disposition home or self-care (01) ==
LOC: MRI 12:30
PROVIDERS: PCP Nurse Practitioner Family; Visit Provider Nurse Practitioner Family
DX: M54.30 Sciatica, unspecified side (principal); Q76.0 Spina bifida occulta
CPT/HCPCS: 72148

== ENCOUNTER 2024-11-02 13:07 | Outpatient (OUT) | payer OTHER, SELFPAY ==
[2024-11-02 13:36] LABS: Bilirubin Urine NEGATIVE (NEGATIVE); Blood Urine NEGATIVE (NEGATIVE); Clarity Urine CLEAR (CLEAR); Color Urine LT. YELLOW (YELLOW); Glucose Urine UA NEGATIVE (NEGATIVE); Ketones Urine NEGATIVE (NEGATIVE); Leukocyte Esterase Urine TRACE (NEGATIVE); Nitrite Urine NEGATIVE (NEGATIVE); Protein Urine NEGATIVE (NEG/TRACE); Urobilinogen Urine 0.2 EU/dL (0.2-1.0)
[2024-11-02 14:10] LABS: Bacteria Urine SMALL #/HPF (NONE SEEN); Cast Seen? NONE SEEN #/LPF (NONE SEEN); Crystals Seen? None Seen #/HPF (None Seen); Mucus Urine TRACE (NONE SEEN); RBC Urine 0-2 #/HPF (0-2); Squamous Epithelial Cell Urine FEW #/LPF (NONE/RARE)
[2024-11-02 14:11] LABS: Urine Culture Indicated ALREADY ORDERED
== END 2024-11-02 13:08 | disposition home or self-care (01) ==
PROVIDERS: PCP Nurse Practitioner Family; Visit Provider Nurse Practitioner Family
DX: R10.2 Pelvic and perineal pain (principal)
CPT/HCPCS: 81001; 87086

== ENCOUNTER 2024-11-03 16:53 | Outpatient (OUT) | payer OTHER, SELFPAY ==
--- NOTE | 2024-11-03 16:55 | US_ITS ---
The [address] [address] Patient Name: KRYS MARTINEZ MRN: [id number] date: 1995 Sex: F Assigned Patient Location: US Current Patient Location: US Accession/Order Number: [id number] Exam Date: 11/03/2024 21:12 Report Date: 11/03/2024 21:15 At the request of: ELOISE SAMS Procedure: US pelvis w/ transvaginal Transvaginal pelvic ultrasound HISTORY: Left pelvic pain for 2 weeks Uterus is retroverted. Uterus measures 9.5 x 4.6 x 5.2 cm. No uterine mass. The endometrium has a total combined thickness of 11 mm. The right ovary measures 4.7 x 2.2 x 2.6 cm with resistive index of 0.63. Dominant right ovarian follicle measures up to 16 mm. Left ovary measures 2.4 x 1.4 x 1.5 cm with a resistive index of 0.51. Prominent left adnexal vessels identified. No adnexal mass or free fluid. US/US pelvis w/ transvaginal IMPRESSION: Retroverted uterus. Unremarkable endometrial complex and ovaries. No adnexal mass or free fluid. Prominent left adnexal vessels. May represent congestion. Impression dictated by: Pedro Joseph M.D.11/03/2024 9:15 PM Dictation Location: [place] [address] Electronically authenticated by: [id number] Y Date: 11/03/2024 21:15
== END 2024-11-03 16:54 | disposition home or self-care (01) ==
LOC: US 16:53
PROVIDERS: PCP Nurse Practitioner Family; Visit Provider Nurse Practitioner Family
DX: R10.2 Pelvic and perineal pain (principal)
CPT/HCPCS: 76830; 76856

== ENCOUNTER 2024-11-30 10:03 | Outpatient (OUT) | payer OTHER, SELFPAY | END 2024-11-30 10:04 | disposition home or self-care (01) | LOC: PST 10:03 | PROVIDERS: PCP Nurse Practitioner Family; Visit Provider Obstetrics & Gynecology | DX: Z01.818 Encounter for other preprocedural examination (principal); N94.89 Other specified conditions associated with female genital organs and menstrual cycle; R10.2 Pelvic and perineal pain ==

== ENCOUNTER 2025-01-01 14:46 | Outpatient (OUT) | payer OTHER, SELFPAY ==
--- OUTSIDE RECORDS SUMMARY | 2024-12-21 09:00 | XMS_ITS | Encounter Summary ---
Author Organization [facility] enter Address [address] [place] [address] Care Team Providers Care Plant Maintenance Technician Name Role Phone Rodney Olivas MD Unavailable Cheikh Coelho MD Unavailable [phone] Erin Whiteside DIETIST Primary Care Provider + Lavern Paul MD, MPH Unavailable [phone] Ron Ruano DO Unavailable [phone] Dolores Johnson TAIL BOARD WORKER-DIETIST Unavailable [phone] Vinicius Gomes MD, PhD Unavailable [phone] Diego Apodaca MD Unavailable [phone] Reason for Referral * Consultation (Routine) - New Request Specialty Diagnoses / Procedures Referred By Katharine t Referred To Contact Sleep Medicine Diagnoses HUNTER positive Shannan Pleitez MD [address] [place] [address] Phone: tel: fax: Referral ID Status Reason Start Date Expiration Date V isits Requested Visits Authorized [id number] New Request 12/21/2024 01/15/2026 1 1 Reason for Visit * Reason Comments New Patient * Consultation (Routine) - Pending Review Specialty Diagnoses / Procedures Referred By Katharine morales Referred To Contact Rheumatology Diagnoses Primary malignant neuroendocrine tumor of appendix Any Hayes, TAIL BOARD WORKER-DIETIST [address] [place] [address] Phone: tel: fax: Referral ID Status Reason Start Date Expiration Date V isits Requested Visits Authorized [id number] Pending Review 09/28/2024 10/23/2025 1 1 Encounter Details Date Type Department Care Team (Late st Contact Info) Description 12/21/2024 9:00 AM EDT Office Visit Rheumatology Outpatient Care [facility] [place] [address] Shannan Pleitez MD [address] [place] [address] 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); HUNTER positive; Rosacea; Interstitial cystitis; Polyarthralgia; Fibromyalgia; Chronic abdominal pain Social History Tobacco Use Types Packs/Day Years Used Date Smoking Tobacco: Never Smokeless Tobacco: Never Tobacco Cessation:Counseling Given: Not Answered Alcohol Use Standard Drinks/Week Comments Never 0 (1 standard drink = 0.6 oz pure alcohol) last alchohol 2019; mixed drink rarely Depression Answer Date Recorded PHQ-9 Total Score (Interpret ation of Total Score 1-4 = Minimal depression; 5-9 = Mild depression; 10-14 = Moderate depression; 15-19 = Moderately severe depression) 9 09/28/2024 Comments No Sex and Gender Information Value Date Recorded Sex Assigned at Not on file Legal Sex Female 8:46 AM EDT Gender Identity Female 09/11/2024 9:47 AM EST Sexual Orientation Straight 09/11/2024 9: 47 AM EST documented as of this encounter Last Filed Vital Signs Vital Sign Reading Time Taken Comments Blood Pressure 108/70 12/21/2024 8:59 AM EDT Pulse 88 12/21/2024 8:59 AM EDT Temperature - - Respiratory Rate 16 12/21/2024 8:59 AM EDT Oxygen Saturation 99% 12/21/2024 8:59 AM EDT Inhaled Oxygen Concentration - - Weight 68.7 kg (151 lb 6.4 oz) 12/21/2024 8:59 A M EDT Height - - Body Mass Index 28.61 11/09/2024 2:54 PM EDT documented in this encounter Functional Status * Are you deaf or do you have serious difficulty hearing? Answer Date of Assessment Author No 05/22/2022 3:44 PM EDT Francia Chamberlain RN * Are you blind or do you have serious difficulty seeing, even when wearing glasses? Answer Date of Assessment Author No 05/22/2022 3:44 PM EDT Francia Chamberlain RN * Do you have serious difficulty walking or climbing stairs (5 years or older)? Answer Date of Assessment Author No 05/22/2022 3:44 PM EDT Francia Chamberlain RN * Do you have difficulty dressing or bathing (5 yrs or older)? Answer Date of Assessment Author No 05/22/2022 3:44 PM EDT Francia Chamberlain RN * Because of a physical, mental, or emotional condition, do you have difficulty doing errands alone such as visiting a doctor's office or shopping (5 yrs or older)? Answer Date of Assessment Author No 05/22/2022 3:44 PM EDT Francia Chamberlain RN documented as of this encounter Mental Status * Because of a physical, mental, or emotional condition, do you have serious difficulty concentrating, remembering, or making decisions (5 yrs or older)? Answer Entry Date Author No 05/22/2022 3:44 PM EDT Francia Chamberlain RN documented in this encounter Patient Instructions * Patient Instructions* Shannan Pleitez MD - 12/21/2024 9:00 AM EDT Fibromyalgia (FM) FM is a noninflammatory, nonautoimmune central afferent processing disorder that entails chronic, widespread musculoskeletal pain; is associated with fatigue, nonrestorative sleep (alpha-delta sleep), arthralgia, myalgia, stiffness, dyscognition ( fibrofog ), muscle spasm, paresthesia, depression, and anxiety. Other central pain sensitivity syndromes that frequently coexist with FM include tension and migraine headaches, irritable bowel syndrome, restless leg/periodic limb movement syndrome, urinary frequency and urgency, interstitial cystitis, primary dysmenorrhea, chronic pelvic pain, urethral syndrome, temporomandibular joint (TMJ) disorder, and sensitivity to odors, bright light, loud noise, and medications. FM can be a primary disorder or coexist with other diagnoses; in fact, it is more common in patients with inflammatory arthritis. Treatment of FM entails patient education on self-management, physical exercise, sleep hygiene, management of associated comorbidities, obtaining social support, and cognitive- behavioral therapy/counseling. Despite the medical therapy available for FM, it is vital to remember that a nonpharmacologic approach has a stronger impact than a pharmacologic one, and the strongest data is on physical exercise. Non-pharmacologic management of fibromyalgia includes: Aerobic exercise improves sleep, increases endogenous endorphins To avoid pain following exercise, increase intensity gradually Recommend non-impact exercises (swimming, water aerobics, walking, cycling) and group programs (taichi, yoga) Recommend mental health counseling, as the following psychologic variables are modifiable and can worsen the severity of FM symptoms: perfectionist/self- sacrificing personality traits, catastrophizing/negative beliefs, hypervigilance, preoccupation with pain, low self-efficacy, poor coping mechanisms, depression, anxiety, PTSD Optimize sleep hygiene and recommend Sleep referral if indicated, as sleep apnea is a known aggravating factor for FM Pharmacologic management of fibromyalgia includes: Serotonin-norepinephrine reuptake inhibitors (SNRIs) - duloxetine (Cymbalta), milnacipran (Savella), venlafaxine (Effexor) Anticonvulsants - pregabalin (Lyrica), gabapentin (Neurontin) Tricyclic antidepressants (TCAs) - amitriptyline (Elavil), nortriptyline, desipramine, imipramine Muscle relaxants - cyclobenzaprine (Flexeril) Refractory myofascial trigger points - lidocaine +/- corticosteroid injection Avoid opioids, benzodiazepines, corticosteroids, APAP, and NSAIDs unless indicated for another condition Online resources for fibromyalgia include: [facility] - painguide.com National Fibromyalgia Association - www.fmaware.org Fibromyalgia Care Society of [place] - fibro.org Cognitive Behavioral Therapy Resource - MailMeNetwork.[email or web address] Advocacy Support Fibro - supportfibromyalgia.org documented in this encounter Progress Notes * Shannan Pleitez MD - 12/21/2024 9:00 AM EDT I have had the pleasure of seeing Ms. Zainab Swift [facility] today. Patient was referred by Any Hayes APRN-C* for evaluation of +HUNTER, has seen rheumatology in the past and would like to reestablish care Chief Complaint The patient is a 29 y.o. female who presents today for New Patient. History of Present Illness History of Present Illness The patient presents for evaluation of chronic fatigue, joint pain, back pain, facial flushing, drymouth, and urinary symptoms. She reports experiencing chronic fatigue, daily joint pain in her legs and arms, and persistent abdominal discomfort. She describes a lack of motivation and extreme tiredness, with even minor household tasks causing exhaustion. Her sleep is disrupted due to back and joint pain. She experiences random flare-ups of joint pain, particularly in her wrists and ankles, a few times a week. The wrist pain is more pronounced in the morning and intensifies with movement. She reports no swelling or redness around the joints. She also experiences deep leg aches without any visible signs of inflammation. An MRI revealed spina bifida occulta, which she believes is the cause of her back pain. She also reports unexplained upper back pain and general body aches. Enqo-mtg-vezcjgm medications provide some relief, but she has not tried prescription drugs. She alternates between Tylenol and ibuprofen due to concerns about liver damage, as advised by her oncologist. She has not noticed any difference in efficacy between the two medications. She does not have any rashes but experiences severe facial flushing, lasting from 1 to 4 hours, triggered by stress, emotional upheaval, caffeine, and spicy food. She reports no oral or nasal sores but frequently needs to clear her throat after eating. She does not require water to swallow food. She has persistent lymph nodes that have not reduced in size, despite not being ill for a long time. She experiences intermittent eye pain and blurry vision, lasting a couple of hours. An computer security manager diagnosed her with minor astigmatism but could not identify the cause of her symptoms. She has not been diagnosed with uveitis. She has been experiencing urinary symptoms for the past 4 months, including difficulty urinating and occasional foamy urine. She noticed blood in her urine about a month ago. Despite these symptoms, all her tests for urinary tract infections have been negative. She has a history of abdominal cancer and surgery, resulting in daily diarrhea (10-15 times a day) and random abdominal pain. She also reports liver and spleen pain. She consulted a liver specialist at [facility] a year ago but did not receive any follow-up. She has difficulty walking certain distances due to her back pain and an MRI showing deterioration of her right SI joint. Walking causes her to limp for the rest of the day. She has not pursued physical therapy due to cost and previous experience of increased pain after four sessions. She has been experiencing dry mouth for a few years, which she manages by increasing her fluid intake. She drinks 40 to 60 ounces of water daily and one caffeinated beverage. She sees a dentist regularly and has had four cavities filled on one side and needs four more filled on the other side. She has a history of gallbladder issues during , which required removal, and anemia. SOCIAL HISTORY She does not smoke, drink alcohol, or use drugs. 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 FAMILY HISTORY Her mother was diagnosed with fibromyalgia. Physical Exam Blood pressure 108/70, pulse 88, resp. rate 16, weight 68.7 kg (151 lb 6.4 oz), last menstrual period 12/20/2024, SpO2 99%, unknown if currently . General/Constitutional: Well-developed, well-nourished, no acute distress HEENT: Normocephalic, atraumatic. EOMI, External ears are normal. No nasal ulcers. No oral ulcers Neck: No palpable lymphadenopathy Pulmonary: CTAB, normal work of breathing Cardiovascular: RRR, no murmurs Neurological: No proximal muscle weakness, no distal muscle weakness Psychiatric: Normal speech, normal behavior, normal judgment Integumentary: Skin is warm and dry, no rash Musculoskeletal: No tender joints, no swollen joints Strength 5/5 in biceps, triceps, distal UE, hip flex/ext, distal LE, cervical flex/ex. Axial: Normal ROM cervical spine Upper extremities: Normal ROM shoulders, unremarkable exam of both elbows, wrists without effusions. Hands: normal ROM, MCPs, PIPs, DIPs without effusions or synovitis. Lower extremities: Normal ROM hips, normal ROM knees without effusions or crepitus, ankles with normal ROM and no effusions. No synovitis of feet. Enthesitis: None Tender points: Absent Labs/Imaging: Labs were personally reviewed and were notable for the following: Lab Results Component Value Date ANAIFA Positive (A) 11/26/2023 ANAPATTERN Homogenous/Diffuse 11/26/2023 ANAQUANTITA 1:80 (A) 11/26/2023 CBC & EDIFF Lab Results Component Value Date WBC 8.35 09/18/2024 HGB 13.7 09/18/2024 HCT 41.5 09/18/2024 PLATELET 395 (H) 09/18/2024 MCV 84.7 09/18/2024 Lab Results Component Value Date RBCDISTRIBU 12.6 09/18/2024 GRNLOCYT 59.1 09/18/2024 LYMPHOCYT 31.0 09/18/2024 MONOCYTELEC 7.2 09/18/2024 EOSINOPHILS 1.7 09/18/2024 BASOPHILS 0.8 09/18/2024 LYMPHOCYTABS 2.59 09/18/2024 EOSINOPHLABS 0.14 09/18/2024 PLATELET 395 (H) 09/18/2024 MPV 9.4 09/18/2024 Creatinine/LFTS Lab Results Component Value Date BUN 11 09/18/2024 Lab Results Component Value Date CREATSERUM 0.70 09/18/2024 Lab Results Component Value Date ALT 12 09/18/2024 AST 12 09/18/2024 ALKPHOS 56 09/18/2024 BILITOTAL 0.5 09/18/2024 BILIDIRECT 0.1 11/26/2023 TB Quantiferon No results found for: MTUBERQUANT Imaging/Pathology was personally reviewed and notable for the following: CT A/P with and without Contrast 09/2024 IMPRESSION: No evidence of metastatic disease in the abdomen or pelvis. Nuclear PET Neuroendocrine 04/2024 In this patient with provided history of neuroendocrine cancer no abnormal tracer avid lesions are seen in the visualized body to suggest recurrent or metastatic disease Assessment/Plan: Myalgic encephalomyelitis/chronic fatigue syndrome (ME/CFS) (Primary) Fibromyalgia Polyarthralgia HUNTER positive Zainab Swift is a 29 y.o. female with history of neuroendocrine carcinoma in remission who presents for positive HUNTER (most recently 1:80 homogenous). She reports a number of symptoms which are all nonspecific and not consistent with a systemic autoimmune rheumatic disease. She does not have any inflammatory arthritis on exam today. I suspect she has ME/CFS and fibromyalgia. Will complete autoimmune evaluation below given + HUNTER. We did discuss the treatment and prognosis of fibromyalgia. I recommend she see sleep medicine - We discussed that the prevalence of ANAs in healthy individuals is about 20%, but only a minorityof these individuals will have a true autoimmune disease. It can also occur in non-rheumatic conditions (thyroid disease, autoimmune hepatitis, malignancy, medications...etc) as well as individuals who have a family history of autoimmunity. - I discussed the importance of getting adequate and restful sleep in the management of fibromyalgia, if not patient should assess options with her PCP (patient should undergo a sleep study if obstructive sleep apnea is suspected). - It is important to have her mood disorder well managed to the successful mgmt of fibromyalgia (ifpatient does not suffer from mood disorder, they should be regularly screened as this frequently accompanies fibromyalgia). - Finally, we dicussed the importance of exercise and weight loss - especially recommend aquatic exercises. Studies have shown that individuals who exercise are markedly improved compared to individuals who simply stretch. We recommend exercising to target of 30 minutes per day every day starting gradually. - Provided patient education regarding fibromyalgia. Recommended utilization of [facility]'s Fibroguide (painOurCrowdideX BODY) and self-care modules. - Will defer medical management to the discretion of Dr Erin Whiteside. - XR WRIST LEFT; Future - XR SPINE CERVICAL 4-5 VIEWS; Future - C3,C4; Future - SEDIMENTATION RATE, AUTOMATED; Future - C REACTIVE PROTEIN; Future - URINE PROTEIN/CREA RATIO, RANDOM; Future - URINALYSIS REFLEX TO CULTURE; Future - CBC, EDIF, PLATELET; Future - COMPREHENSIVE METABOLIC PANEL; Future - CK; Future - ALDOLASE; Future - AMB REFERRAL TO SLEEP MEDICINE - RHEUMATOID FACTOR; Future - CYCLIC CITRULLINATE PEPTIDE AB; Future Rosacea Describes typical rosacea symptoms with clear triggers. Recommend avoidance of triggers if able, can consider dermatology referral if non manageable Interstitial cystitis Reports symptoms of interstitial cystitis. We discussed that this may be related to her ME/CFS diagnosis Chronic Diarrhea/Abdominal Pain Symptoms concerning for irritable bowel syndrome. Consider referring to GI, will defer to PCP. Regarding general care, we appreciate the primary care physician's continuing to follow the patientregarding general care, malignancy screening studies, preventative care that are appropriate for age and clinical status Patient will follow-up as needed Shannan Pleitez MD Fastener Technologist Department of Rheumatology and Immunology [facility] Records reviewed for today's visit included but was not limited to: [facility] in- house chart, laboratory and imaging results relevant to today's visit, budget consultant notes, [facility] records (if available). Total time spent for the visit included reviewing the patient's medical record prior to the visit with review of outside labs, imaging, and documentation from specialists and other physicians, performing a history and physical exam with the patient, counseling the patient, ordering and interpretinglab and imaging studies, ordering and managing prescription medications, communicating and coordinating care with other members of the patient's healthcare team, and documenting clinical information in the electronic medical record was 45+ minutes. Past Medical History has a past medical history of Anxiety, Arthritis, Borderline personality disorder, Clostridioides difficile infection (05/2022), Depression, GERD (gastroesophageal reflux disease), and History of cancer. Past Surgical History has a past surgical history that includes appendectomy laparoscopic (02/03/2022); colonoscopy diagnostic (04/08/2022); colectomy partial laparoscopic (N/A, 04/21/2022); hyperthermia by intracavitary probe (hipec) (N/A, 05/22/2022); colectomy partial open (Right, 05/22/2022); debulking intra-abdominal/pelvic/retroperitoneal w/ omenectomy & pelvic para-aortic lymphadenectomy (N/A, 05/22/2022); and section (2023). Family History family history includes Breast Cancer in her maternal aunt and another family member; Cancer in hercousin, maternal aunt, and another family member; Leukemia in some other family members; Lung Cancer in her maternal grandfather; Myocardial Infarction (age of onset: 59) in her maternal grandmother. Allergies is allergic to flagyl [metronidazole] and gabapentin. Current Medications has a current medication list which includes the following prescription(s): acetaminophen, fluoxetine, emgality, ibuprofen, lamotrigine, loperamide, multivitamin w/ minerals (therapeutic-m), octreotide acetate, ondansetron, probiotic product, and rizatriptan. documented in this encounter Plan of Treatment Upcoming Encounters Date Type Department Care Team (Late st Contact Info) Description 01/22/2025 9:30 AM EDT Clinical Support Encounter Clinical Lab [place] [id number] [address] [facility] [address] [place] [phone] Christopher Moralez TAIL BOARD WORKER-DIETIST [address] [place] [address] 01/22/2025 10:45 AM EDT Appointment Imaging at [facility] [address] [place] [phone] Christopher Moralez TAIL BOARD WORKER-DIETIST [address] [place], [place] [id number] 01/29/2025 12:00 PM EDT Office Visit Division of Medical Oncology [address] [facility] [address]th [place] [phone] Christopher Moralez TAIL BOARD WORKER-DIETIST [address] [place] [address] Scheduled Orders Name Type Priority Associated Diagnoses Orde r Schedule XR WRIST LEFT Imaging Routine HUNTER positive Expected: 12/21/2024, Expires: 12/21/2025 XR SPINE CERVICAL 4-5 VIEWS Imaging Routine HUNTER positive Expected: 12/21/2024, Expires: 12/21/2025 Scheduled Referrals Name Type Priority Associated Diagnoses Orde r Schedule AMB REFERRAL TO SLEEP MEDICINE Outpatient Referral Routine HUNTER positive Ordered: 12/21/2024 documented as of this encounter Results * URINE PROTEIN/CREA RATIO, RANDOM (12/21/2024 9:47 AM EDT) Urine Creatinine 134.51 mg/dL 12/21/2024 11:29 AM EDT [facility] Urine Protein 6 mg/dL 12/21/2024 11:29 AM EDT [facility] Prot/Creat Ratio 0.045 mg/mg 12/21/2024 11:29 AM EDT [facility] Urine 12/21/2024 9:47 AM EDT 12/21/2024 9:47 AM EDT us Shannan Pleitez MD BODY FLUIDS & STOOLS ORDERABLES Final Result Performing Organization Address [facility] Co de Phone Number [facility] [address] [address] * CYCLIC CITRULLINATE PEPTIDE AB (12/21/2024 9:44 AM EDT) Cyclic Citrullinated Peptide Ab <0.54 <5.00 U/mL 12/21/2024 2:49 PM EDT [facility] Blood Venipuncture / Unknown 12/21/2024 9:44 AM EDT 12/21/2024 9:45 AM EDT us Shannan Pleitez MD ENDOCRINOLOGY Final Result Performing Organization Address [facility] de Phone Number [facility] [address] [address] * RHEUMATOID FACTOR (12/21/2024 9:44 AM EDT) Rheumatoid Factor <10 <=14 IU/mL 12/21/2024 11:33 AM EDT [facility] Blood Venipuncture / Unknown 12/21/2024 9:44 AM EDT 12/21/2024 9:45 AM EDT us Shannan Pleitez MD IMMUNOLOGY ORDERABLES Final Resu lt Performing Organization Address [facility] Co de Phone Number [facility] [address] [address] * ALDOLASE (12/21/2024 9:44 AM EDT) Aldolase 2.9 <7.7 U/L 12/24/2024 10:17 AM EDT [facility] Livevol Comment: ADDITIONAL INFORMATION This test has been modified from the bushel worker's instructions. Its performance characteristics were determined by [facility] in a manner consistent with CLIA requirements. This test has not been cleared or approved by the U.S. Food and Drug Administration. Test Performed by: [facility] [address] [place] [address] Venetian Blind Cleaner: Jami Sher Ph.D.; CLIA# [id number] Blood Venipuncture / Unknown 12/21/2024 9:44 AM EDT 12/21/2024 9:45 AM EDT us Shannan Pleitez MD CHEMISTRY ORDERABLES Final Resul t Performing Organization Address City/[facility]/ZIP Co de Phone Number [address] [address], [place] [phone] * CK (12/21/2024 9:44 AM EDT) Creatine Kinase 46 30 - 184 U/L 12/21/2024 11:29 AM EDT [facility] Blood Venipuncture / Unknown 12/21/2024 9:44 AM EDT 12/21/2024 9:45 AM EDT us Shannan Pleitez MD CHEMISTRY ORDERABLES Final Resul t [facility] [address] [address] * COMPREHENSIVE METABOLIC PANEL (12/21/2024 9:44 AM EDT) Sodium 140 135 - 145 mmol/L 12/21/2024 11:29 AM EDT [facility] Potassium 4.8 3.5 - 5.0 mmol/L 12/21/2024 11:29 AM EDT [facility] Chloride 103 98 - 108 mmol/L 12/21/2024 11:29 AM EDT [facility] BUN 10 7 - 25 mg/dL 12/21/2024 11:29 AM EDT [facility] Creatinine 0.58 0.50 - 1.20 mg/dL 12/21/2024 11:29 AM [facility] Glucose 77 Nonfasting : 70-179 mg/dL; Fastin-99 mg/dL 12/21/2024 11:29 AM [facility] Bilirubin Total 0.3 <1.5 mg/dL 11:29 AM [facility] Albumin 4.9 3.5 - 5.0 g/dL 12/21/2024 11:29 AM [facility] Total Protein 7.6 6.4 - 8.3 g/dL 12/21/2024 11:29 AM [facility] AST 12 10 - 39 U/L 12/21/2024 11:29 AM [facility] [facility] ALP 50 32 - 126 U/L 12/21/2024 11:29 AM [facility] Calcium 10.0 8.6 - 10.5 mg/dL 12/21/2024 11:29 AM [facility] CO2 29 21 - 31 mmol/L 12/21/2024 11:29 AM [facility] ALT 13 9 - 48 U/L 12/21/2024 11:29 AM [facility] Bun/Crea Ratio 17 12/21/2024 11:29 AM [facility] Osmolality (Calculated) 292 278 - 305 mOsm/kg 12/21/2024 11:29 AM [facility] Anion Gap 13 7 - 17 mmol/L 12/21/2024 11:29 AM [facility] eGFR, CKD-EPI, Female >90 >=60 mL/min/1.7 3m2 12/21/2024 11:29 AM [facility] Comment:Reported eGFR is bas ed on the CKD-EPI 2020 equation using creatinine, age, and sex. Blood Venipuncture / Unknown 12/21/2024 9:44 AM EDT 12/21/2024 9:45 AM EDT us Shannan Pleitez MD CHEMISTRY ORDERABLES Final Resul t Performing Organization Address [facility] Co de Phone Number [facility] [address] [address] * C REACTIVE PROTEIN (12/21/2024 9:44 AM EDT) C Reactive Protein 0.60 <10.00 mg/L 12/21/2024 11:30 AM EDT [facility] Blood Venipuncture / Unknown 12/21/2024 9:44 AM EDT 12/21/2024 9:45 AM EDT us Shannan Pleitez MD IMMUNOLOGY ORDERABLES Final Resu lt Performing Organization Address [facility] de Phone Number [facility] [address] [address] * SEDIMENTATION RATE, AUTOMATED (12/21/2024 9:44 AM EDT) ESR Westergren 10 <20 mm/hr 12/21/2024 11:44 AM EDT [facility] Blood Venipuncture / Unknown 12/21/2024 9:44 AM EDT 12/21/2024 9:45 AM EDT us Shannan Pleitez MD HEMATOLOGY ORDERABLES Final Resu lt Performing Organization Address [facility] de Phone Number [facility] [address] [address] * C3,C4 (12/21/2024 9:44 AM EDT) C3 155 87 - 200 mg/dL 12/21/2024 11:30 AM EDT [facility] C4 38 18 - 52 mg/dL 12/21/2024 11:30 AM EDT [facility] Blood Venipuncture / Unknown 12/21/2024 9:44 AM EDT 12/21/2024 9:45 AM EDT Shannan Pleitez MD IMMUNOLOGY ORDERABLES Final Resu lt U [facility] [address] [place] [address] documented in this encounter Visit Diagnoses Diagnosis 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 Other and unspecified nonspecific immunological findings Rosacea Interstitial cystitis Chronic interstitial cystitis Polyarthralgia Pain in joint, multiple sites Fibromyalgia Mylagia and myositis, unspecified Chronic abdominal pain Abdominal pain, unspecified site documented in this encounter Additional Health Concerns Assessment Noted Time PHQ-9 Depression Total Score: 9 09/29/19 25 11:41 AM EDT documented as of this encounter Care Teams Plant Maintenance Technician Relationship Specialty Start Date End Date Erin Whiteside CNP [address] [facility] [place] [address] PCP - General 03/10/23 Rodney Olivas MD Hematology 03/19/22 Cheikh Coelho MD [address] [place], [place] [address] 5TH [place] [phone] Assistant Toddler Teacher Cardiovascular Disease 10/07/22 Lavern Paul MD, MPH [address] [facility] 10th [place] [address] Oncologist Medical Oncology 03/31/23 Ron Ruano DO [address] [facility] [address] [place] [address] Obstetrics & Gynecology 04/06/23 Dolores Johnson APRN-DIETIST [address] [facility] 1 [place] [address] Clinical Science Consultant Certified Nurse Practitioner 02/10/24 Vinicius Gomes MD, PhD [address] [facility] 8th [place] [address] Oncologist Medical Oncology 02/10/24 Diego Apodaca MD [address] [place] [address] Gastroenterology 02/16/24 documented as of this encounter
--- NOTE | 2025-01-01 14:48 | MR_ITS ---
The [address] [address] Patient Name: KRYS MARTINEZ MRN: [id number] date: 1995 Sex: F Assigned Patient Location: MRI Current Patient Location: Accession/Order Number: [id number] Exam Date: 01/02/2025 01:11 Report Date: 01/02/2025 01:13 At the request of: JAX LANE MD Procedure: MR venography head wo con MR venography head wo con 01/01/2025 4:08 PM SIGNS AND SYMPTOMS: ^progression of migraine with history of neuroendocrine tumor PROTOCOL: Axial 2-D [id number] MRV with 3-D reconstructions COMPARISON: None FINDINGS: The superior sagittal sinus, transverse sinuses, sigmoid sinuses, and proximal internal jugular veins are patent. There is narrowing of the posterior and lateral aspects of the transverse sinuses bilaterally with right dominant venous drainage which is a normal variant. Straight sinus, vein of Eloy, basal veins of Meredith, and great cerebral veins are patent. The veins of Bety and Trolard are patent. MR/MR venography head wo con IMPRESSION: There is flattening of the posterior and lateral aspects of the transverse sinuses suspicious for intracranial hypertension. No evidence of dural venous thrombosis. Impression dictated by: Jagdeep Bennett M.D. 01/02/2025 1:13 AM Dictation Location: [place] [address] Electronically authenticated by: [id number] Y Date: 01/02/2025 01:13
--- NOTE | 2025-01-01 14:48 | MR_ITS ---
The [address] [address] Patient Name: KRYS MARTINEZ MRN: [id number] date: 1995 Sex: F Assigned Patient Location: MRI Current Patient Location: Accession/Order Number: [id number] Exam Date: 01/02/2025 01:06 Report Date: 01/02/2025 01:11 At the request of: JAX LANE MD Procedure: MR head/brain wo/w con MR head/brain wo/w con 01/01/2025 4:08 PM SIGN AND SYMPTOMS: Migraine headaches with aura, nausea, photosensitivity PROTOCOL: Multiplanar multisequence MR images of the brain with and without IV contrast CONTRAST: 14 mL of intravenous Dotarem COMPARISON: 04/28/2023 FINDINGS: Extra axial spaces: Age appropriate. Hemorrhage: None. Ventricular system: Within normal limits. Basal cisterns: Within normal limits and not effaced. Cerebral parenchyma: There are a few punctate nonspecific foci of T2 and T2 FLAIR hyperintense signal in the subcortical white matter of the parietal lobes. Midline shift: None.. Cerebellum: Within normal limits. Brainstem: Within normal limits. OTHER: Calvarium: Normal marrow signal. Vascular system: Satisfactory flow voids within the anterior and posterior circulation. There is narrowing of the posterior and lateral aspects of the transverse sinuses. Visualized Paranasal sinuses: Within normal limits. Visualized Orbits: Within normal limits. Visualized upper cervical spine: Within normal limits. Sella and skull base: There is mild flattening of the pituitary within the sella. MR/MR head/brain wo/w con IMPRESSION: No acute intracranial pathology or abnormal postcontrast enhancement. There is flattening of the dome of the pituitary which is atypical for the patient's age. This along with flattening of the posterior and lateral aspect of the transverse sinuses is suspicious for intracranial hypertension. Impression dictated by: Jagdeep Bennett M.D. 01/02/2025 1:11 AM Dictation Location: [place] [address] Electronically authenticated by: [id number] Y Date: 01/02/2025 01:11
--- OUTSIDE RECORDS SUMMARY | 2025-01-01 14:48 | XMS_ITS | Encounter Summary ---
Author Organization [facility] enter Address [address] [place] [address] Care Team Providers Care Special Needs Babysitter Name Role Phone Rodney Olivas MD Unavailable Cheikh Coelho MD Unavailable [phone] Erin Whiteside JUVENILE CORRECTIONS OFFICER Primary Care Provider + Lavern Paul MD, MPH Unavailable [phone] Ron Ruano DO Unavailable [phone] Dolores Johnson APRN-[facility] Unavailable [phone] Vinicius Gomes MD, PhD Unavailable [phone] Diego Apodaca MD Unavailable [phone] Reason for Visit * Reason Onset Date Comments Medication Refill 04/05/2024 Encounter Details Date Type Department Care Team (Late st Contact Info) Description 04/05/2024 Telephone Division of Medical Oncology [address] [place] [address] [place] [address] Lavern Paul MD, MPH [address] [place] [place] [address] Medication Refill Social History Tobacco Use Types Packs/Day Years Used Date Smoking Tobacco: Never Smokeless Tobacco: Never Alcohol Use Standard Drinks/Week Comments Not Currently 0 (1 standard drink = 0.6 oz pure alcohol) last alchohol 2019; mixed drink rarely Depression Answer Date Recorded PHQ-9 Total Score (Interpret ation of Total Score 1-4 = Minimal depression; 5-9 = Mild depression; 10-14 = Moderate depression; 15-19 = Moderately severe depression) 0 11/08/2023 Comments No Sex and Gender Information Value Date Recorded Sex Assigned at Not on file Legal Sex Female 8:46 AM EDT Gender Identity Female 09/11/2024 9:47 AM EST Sexual Orientation Straight 09/11/2024 9: 47 AM EST documented as of this encounter Functional Status * Are you [...] Francia Chamberlain RN documented in this encounter Miscellaneous Notes * Telephone Encounter - Emilee Dexter RN - 04/06/2024 11:00 AM EDT Called patient to follow up. She reports: - Oxycodone has helped in the past, only took when absolutely needed. Still has 3-4 tablets remaining. Frequency? 1 tablet every several weeks when the abdominal pain would be at its' worst. - Bentyl did not help at all. - creon- Was instructed by Dr. Paul in January to hold off - Last SSA injection was 04/03/24. - Diarrhea? 10-15x/day. Saw GI prescribed Colestipol - does take it, it can still cause upper abdominal pain. Does it help the diarrhea? A little bit. Confirmed with her that zofran has been sent and confirmed upcoming PET scan on 04/12 will be reviewed once completed. She verbalized understanding. * Telephone Encounter - MAMTA Travis - 04/06/2024 10:11 AM EDT We ordered Bentyl/oxy. Do these meds help at all? Thanks sandrine * Telephone Encounter - MAMTA Travis - 04/06/2024 8:57 AM EDT Zofran 90d supply sent Abdominal pain: PET on 04/12. Does she have pain meds? Thanks Sandrine * Telephone Encounter - Yina Amaya RN - 04/05/2024 2:49 PM EDT Call placed to pt to triage nausea. Pt states she is having worsening nausea, almost every time she eats. Denies vomiting but states recently she feels like she could recently The last time she tried to fill zofran she could not afford it, insurance only covers 90 day supply. Pt does have abdominal pain and diarrhea as well, waiting for colonoscopy to assess for colitis. Wanted to also make us aware about abdominal pain. States she has a persistent ache all day and then is more severe after eating. Uses tylenol/ibuprofen with no relief. States positioning also does not relieve pain Routing to MATT * Telephone Encounter - Lacey Stuart - 04/05/2024 12:51 PM EDT Patient called in stating that she need a refill on her Zofran. Prefers the tablets not the dissolvable pills. documented in this encounter Plan of Treatment Upcoming Encounters Date Type Department Care Team (Late st Contact Info) Description 01/22/2025 9:30 AM EDT Clinical Support Encounter Clinical Lab [place] [id number] [address] [facility] 1st [place] [address] Sandrine Moralez APRN-JUVENILE CORRECTIONS OFFICER [address] [place] [id number] 01/22/2025 10:45 AM EDT Appointment Imaging at [facility] [address] [facility] 2nd [place] [address] Sandrine Moralez APRN-JUVENILE CORRECTIONS OFFICER [address] [place] [address] [phone] 01/29/2025 12:00 PM EDT Office Visit Division of Medical Oncology [address] [facility] 10th [place] [address] Sandrine Moralez APRN-JUVENILE CORRECTIONS OFFICER [address] [place] [phone] documented as of this encounter Visit Diagnoses Not on filedocumented in this encounter Additional Health Concerns Assessment Noted Time PHQ-9 Depression Total Score: 0 11/08/19 24 9:40 AM EDT documented as of this encounter Care Teams Special Needs Babysitter Relationship Specialty Start Date End Date Erin Whiteside CNP [address] [place] [address] PCP - General 03/10/23 Rodney Olivas MD Hematology 03/19/22 Cheikh Coelho MD [address] [place] [address] Osteopathic Physician Cardiovascular Disease 10/07/22 Lavern Paul MD, MPH [address] [place] 10th [place] [address] Oncologist Medical Oncology 03/31/23 Ron Ruano DO [address] [facility] 1 [place] [address] Obstetrics & Gynecology 04/06/23 Dolores Johnson, YARN WINDER-JUVENILE CORRECTIONS OFFICER [address] [facility] 1 [place] [address] Subscription Clerk Certified Nurse Practitioner 02/10/24 Vinicius Gomes MD, PhD [address] [place] 8th [place] [address] Oncologist Medical Oncology 02/10/24 Diego Apodaca MD [facility] [address] [place] [address] Gastroenterology 02/16/24 documented as of this encounter
--- OUTSIDE RECORDS SUMMARY | 2025-01-01 14:48 | XMS_ITS | Encounter Summary ---
Author Organization [facility] Address [address] [place] [address] Care Team Providers Care Litigation Manager Name Role Phone Erin Whiteside RN Primary Care Provider Unavaila Rodney Morrell MD Unavailable Archie Hugo MD, PhD Unavailable Unavailable Cheikh Coelho MD Unavailable [phone] Erin Whiteside S DUCT MAKER Primary Care Provider + Lavern Paul MD, MPH Unavailable [phone] Ron Ruano DO Unavailable [phone] Dolores Johnson BASS MECHANISM MAKER-DUCT MAKER Unavailable [phone] Vinicius Gomes MD, PhD Unavailable [phone] Diego Apodaca MD Unavailable [phone] Diego Apodaca MD Unavailable [phone] Reason for Visit * Reason Onset Date Comments Insurance 05/13/2022 Encounter Details Date Type Department Care Team (Late st Contact Info) Description 05/13/2022 Telephone Division of Surgical Oncology [address] [place] 10th [place] [address] Archie Hugo MD, PhD Insurance Social History Tobacco Use Types Packs/Day Years Used Date Smoking Tobacco: Never Smokeless Tobacco: Never Alcohol Use Standard Drinks/Week Comments Not Currently 0 (1 standard drink = 0.6 oz pure alcohol) last alchohol 2019; mixed drink rarely Comments Unknown Sex and Gender Information Value Date Recorded Sex Assigned at Not on file Legal Sex Female 8:46 AM EDT Gender Identity Female 09/11/2024 9:47 AM EST Sexual Orientation Straight 09/11/2024 9: 47 AM EST documented as of this encounter Miscellaneous Notes * Telephone Encounter - Nicole Mays RN - 05/13/2022 11:51 AM EDT Email sent to pre-cert team now as follows: Call came in from pt insurance, [place], regarding auth for surgery. Please review and contact them to discuss/update: Antonio from pt Insurance wanted to make sure pre auth was approved for surgery with Dr. Hugo on 05/22. Requesting call back on [phone]. Thanks! * Telephone Encounter - Lianet Carcamo - 05/13/2022 11:40 AM EDT Antonio from pt Insurance wanted to make sure pre auth was approved for surgery with Dr. Hugo on 05/22. Requesting call back on [phone]. Thanks! documented in this encounter Plan of Treatment Upcoming Encounters Date Type Department Care Team (Late st Contact Info) Description 01/22/2025 9:30 AM EDT Clinical Support Encounter Clinical Lab [place] [address] [address] [facility] 1st [place] [address] Christopher Moralez BASS MECHANISM MAKER-DUCT MAKER [address] [place] [address] 01/22/2025 10:45 AM EDT Appointment Imaging at [facility] 2[address] [facility] 2nd [place] [address] Christopher Moralez, BASS MECHANISM MAKER-DUCT MAKER [address] [place] [address] 01/29/2025 12:00 PM EDT Office Visit Division of Medical Oncology [address] [facility] 10th [place] [address] Christopher Moralez, BASS MECHANISM MAKER-DUCT MAKER [address] [place], [place] [phone] documented as of this encounter Visit Diagnoses Not on filedocumented in this encounter Care Teams Litigation Manager Relationship Specialty Start Date End Date Erin Whiteside, RN PCP - General 03/19/22 03/09/23 Erin Whiteside, DUCT MAKER [address] [facility] [place] [address] PCP - General 03/10/23 Rodney Olivas MD Hematology 03/19/22 Archie Hugo MD, PhD Surgeon Surgical Oncology 07/08/22 02/10/24 Cheikh Coelho MD [address]TH [place] [address] Community Health Director Cardiovascular Disease 10/07/22 Lavern Paul MD, MPH [address] [facility] 10th [place] [address] Oncologist Medical Oncology 03/31/23 Ron Ruano DO [address] [facility] 1 [place] [address] Obstetrics & Gynecology 04/06/23 Dolores Johnson, BASS MECHANISM MAKER-DUCT MAKER [address] [place] [address] Concrete Pipe Making Machine Operator Certified Nurse Practitioner 02/10/24 Vinicius Gomes MD, PhD [address] [facility] 8th [place] [address] Oncologist Medical Oncology 02/10/24 Diego Apodaca MD [address] [place] [address] [address]th [place] [address] Concrete Pipe Making Machine Operator Internal Medicine 02/11/24 02/15/24 Diego Apodaca MD [address] [place] [address] Gastroenterology 02/16/24 documented as of this encounter
--- OUTSIDE RECORDS SUMMARY | 2025-01-01 14:48 | XMS_ITS | Encounter Summary ---
Author Organization [facility] enter Address [address] [place] [address] Care Team Providers Care Pulp And Paper Tester Name Role Phone Rodney Olivas MD Unavailable Cheikh Coelho MD Unavailable [phone] Erin Whiteside LOGISTICS CENTER MANAGER Primary Care Provider + Lavern Paul MD, MPH Unavailable [phone] Ron Ruano DO Unavailable [phone] Dolores Johnson TOWEL FOLDER-LOGISTICS CENTER MANAGER Unavailable [phone] Vinicius Gomes MD, PhD Unavailable [phone] Diego Apodaca MD Unavailable [phone] Reason for Visit * Reason Onset Date Comments Follow-up 12/25/2024 Encounter Details Date Type Department Care Team (Latest Contact Info) Description 12/25/2024 Results Follow-Up Rheumatology Outpatient Care [facility] [place] [address] Shannan Pleitez MD [address] [facility] [address] [place] [address] URINE PROTEIN/CREA RATIO, RANDOM, CYCLIC CITRULLINATE PEPTIDE AB, RHEUMATOID FACTOR, Additional followed-up results: 9 Social History Tobacco Use Types Packs/Day Years Used Date Smoking Tobacco: Never Smokeless Tobacco: Never Alcohol Use Standard Drinks/Week Comments Never 0 [...] encounter Miscellaneous Notes * Telephone Encounter - Brittney Cleaning RN - 12/26/2024 8:48 AM EDT This RN efaxed the orders to [facility] at [phone]. documented in this encounter Plan of Treatment Upcoming Encounters Date Type Department Care Team (Late st Contact Info) Description 01/22/2025 9:30 AM EDT Clinical Support Encounter Clinical Lab [place] 1 [address] [facility] 1st [place] [address] Christopher Moralez TOWEL FOLDER-LOGISTICS CENTER MANAGER [address] [place], [place] [phone] 01/22/2025 10:45 AM EDT Appointment Imaging at [facility] [address] 2nd [place] [address] Christopher Moralez TOWEL FOLDER-LOGISTICS CENTER MANAGER [address] [place], [place] [phone] 01/29/2025 12:00 PM EDT Office Visit Division of Medical Oncology 20[address] [facility] 10th [place] [address] Christopher Moralez TOWEL FOLDER-LOGISTICS CENTER MANAGER [address] [place] [address] documented as of this encounter Visit Diagnoses Not on filedocumented in this encounter Additional Health Concerns Assessment Noted Time PHQ-9 Depression Total Score: 9 09/29/19 25 11:41 AM EDT documented as of this encounter Care Teams Pulp And Paper Tester Relationship Specialty Start Date End Date Erin Whiteside CNP [address] [place] [address] PCP - General 03/10/23 Rodney Olivas MD Hematology 03/19/22 Cheikh Coelho MD [address] [place] [address] Straightener Cardiovascular Disease 10/07/22 Lavern Paul MD, MPH [address] [place] 10th [place] [address] Oncologist Medical Oncology 03/31/23 Ron Ruano DO [address] [facility] 1 [place] [address] Obstetrics & Gynecology 04/06/23 Dolores Johnson, TOWEL FOLDER-LOGISTICS CENTER MANAGER [address] [facility] 1 [place] [address] Liquor Rectifier Certified Nurse Practitioner 02/10/24 Vinicius Gomes MD, PhD [address] [place] 8th [place] [address] Oncologist Medical Oncology 02/10/24 Diego Apodaca MD [address] [place] [address] Gastroenterology 02/16/24 documented as of this encounter
--- OUTSIDE RECORDS SUMMARY | 2025-01-01 14:48 | XMS_ITS | Encounter Summary ---
Author Organization [facility] Address [address] [place] [address] Care Team Providers Care Hospital Fellow Name Role Phone Rodney Olivas MD Unavailable Archie Hugo MD, PhD Unavailable Unavailable Cheikh Coelho MD Unavailable [phone] Erin Whiteside STOCK PREPARATION SUPERVISOR Primary Care Provider + Lavern Paul MD, MPH Unavailable [phone] Ron Ruano DO Unavailable [phone] Dolores Johnson APRN-STOCK PREPARATION SUPERVISOR Unavailable [phone] Vinicius Gomes MD, PhD Unavailable [phone] Diego Apodaca MD Unavailable [phone] Diego Apodaca MD Unavailable [phone] Reason for Visit * Reason Onset Date Comments Results 11/29/2023 Encounter Details Date Type Department Care Team (Late st Contact Info) Description 11/29/2023 Telephone Central Scheduling [address] [place] [address] Leigh Larsen Results Social History Tobacco Use Types Packs/Day Years [...] = Moderately severe depression) 0 11/08/2023 Comments Yes Sex and Gender Information Value Date Recorded [...] encounter Miscellaneous Notes * Telephone Encounter - Doris Layne RN - 12/08/2023 1:22 PM EDT Pt requesting lab results now that all have resulted and in the chart. Routing to provider for review and advice * Telephone Encounter - Brina Eastman MA - 12/08/2023 12:43 PM EDT Pt called back to touch base. Please call with results at earliest convenience.Thank you . CB# pt cell- [phone] * Telephone Encounter - Angel Galeana RN - 11/29/2023 4:29 PM EDT NEW GHN OV with TASH Johnson 11/26/23 ssessment and Plan Zainab was seen today for new patient. She was referred d/t liver enzyme elevation and mild hepatomegaly on CTAP. Cholecystectomy on 06/18/23 d/t cholelithiasis. She was in her second trimester. Plan: Labs today to evaluate for causes of liver enzyme elevation Fibroscan ordered to evaluate your liver for fibrosis, steatosis Follow up in 3 months - video Avoid alcohol Post OV labs 2 still in processing Forwarded to provider for review / patient advice * Telephone Encounter - Leigh Larsen - 11/29/2023 3:59 PM EDT GHN RESULT REQUEST Provider: Dolores Johnson Pt calling to obtain results regarding the following Name of test/procedure: Blood work Date when performed: 11/26/2023 Best time to reach patient: any time [phone] *Patient has been notified that they will be contacted within 24-48 hours. * documented in this encounter Plan of Treatment Upcoming Encounters Date Type Department Care Team (Late st Contact Info) Description 01/22/2025 9:30 AM EDT Clinical Support Encounter Clinical Lab [facility] [address] [address] Christopher Moralez APRN-STOCK PREPARATION SUPERVISOR [address] [place] [address] 01/22/2025 10:45 AM EDT Appointment Imaging at The [place] [address] [address] Moralez, Ye, OPERATIONS MANAGER STATION-STOCK PREPARATION SUPERVISOR [address] [place] [address] 01/29/2025 12:00 PM EDT Office Visit Division of Medical Oncology [address] 10th [place] [address] Christopher Moralez, OPERATIONS MANAGER STATION-STOCK PREPARATION SUPERVISOR [address] [place], [place] [phone] documented as of this encounter Visit Diagnoses Not on filedocumented in this encounter Additional Health Concerns Assessment Noted Time PHQ-9 Depression Total Score: 0 11/08/19 9:40 AM EDT documented as of this encounter Care Teams Hospital Fellow Relationship Specialty Start Date End Date Erin Whiteside, STOCK PREPARATION SUPERVISOR [address] [place] [address] PCP - General 03/10/23 Rodney Olivas MD Hematology 03/19/22 Archie Hugo MD, PhD Surgeon Surgical Oncology 07/08/22 02/10/24 Cheikh Coelho MD [address] [place] [address] Outsole Cementer Machine Cardiovascular Disease 10/07/22 Lavern Paul MD, MPH [address] [facility] 10[address] [place] [address] Oncologist Medical Oncology 03/31/23 Ron Ruano DO [address] [facility] 1 [place] [address] Obstetrics & Gynecology 04/06/23 Dolores Johnson, OPERATIONS MANAGER STATION-STOCK PREPARATION SUPERVISOR [address] [facility] 1 [place] [address] Salon/Spa Manager Certified Nurse Practitioner 02/10/24 Vinicius Gomes MD, PhD [address] [place] 8th [place] [address] Oncologist Medical Oncology 02/10/24 Diego Apodaca MD [address] [facility] 8th [place] [address] Salon/Spa Manager Internal Medicine 02/11/24 02/15/24 Diego Apodaca MD [address] [place] [address] Gastroenterology 02/16/24 documented as of this encounter
--- OUTSIDE RECORDS SUMMARY | 2025-01-01 14:48 | XMS_ITS | Encounter Summary ---
Author Organization [facility] Address [address] [place] [address] Care Team Providers Care Director Financial Analysis Name Role Phone Rodney Olivas MD Unavailable Cheikh Coelho MD Unavailable [phone] Erin Whiteside LAND SUR[employer]YOR Primary Care Provider + Lavern Paul MD, MPH Unavailable [phone] Ron Ruano DO Unavailable [phone] Dolores Johnson [employer] SUR[employer]YOR Unavailable [phone] Vinicius Gomes MD, PhD Unavailable [phone] Diego Apodaca MD Unavailable [phone] Reason for Visit * Reason Onset Date Comments Visit Preparation 06/05/2024 Encounter Details Date Type Department Care Team (Late st Contact Info) Description 06/05/2024 Telephone Division of Medical Oncology [address] [place] [address] Yina Amaya, RN Visit Preparation Social History Tobacco Use Types Packs/Day Years [...] Author No 05/22/2022 3:44 PM EDT Francia Chabmerlain RN * Do you have difficulty dressing [...] encounter Miscellaneous Notes * Telephone Encounter - Yina Amaya RN - 06/05/2024 1:42 PM EST Pt coming to clinic tomorrow. Has not had scans since April. Routing to [facility]ATT to see if appt needs rescheduled documented in this encounter Plan of Treatment Upcoming Encounters Date Type Department Care Team (Late st Contact Info) Description 01/22/2025 9:30 AM EDT Clinical Support Encounter Clinical Lab Branden Kang [address] [address] Christopher Moralez, [employer]OR [address] [place] [address] 01/22/2025 10:45 AM EDT Appointment Imaging at [facility] [address] [place] [address] Christopher Moralez, [employer] SUR[employer]YOR [address] [place] [address] 01/29/2025 12:00 PM EDT Office Visit Division of Medical Oncology [address] [facility] [address] [place] [phone] Christopher Moralez, [employer] [address] [place] [place] [address] documented as of this encounter Visit Diagnoses Not on filedocumented in this encounter Additional Health Concerns Assessment Noted Time PHQ-9 Depression Total Score: 0 11/08/19 24 9:40 AM EDT documented as of this encounter Care Teams Director Financial Analysis Relationship Specialty Start Date End Date Erin Whiteside CNP [address] [place] [phone] PCP - General 03/10/23 Rodney Olivas MD Hematology 03/19/22 Cheikh Coelho MD [address] [place] [phone] Tnt Powder Worker Cardiovascular Disease 10/07/22 Lavern Paul MD, MPH [facility] [address] [place] [address] Oncologist Medical Oncology 03/31/23 Ron Ruano DO [address] [facility] [address] [place] [id number] Obstetrics & Gynecology 04/06/23 Dolores Johnson, [employer]OR [address] [facility] [address] [place] [phone] Controller [employer] Certified Nurse Practitioner 02/10/24 Vinicius Gomes MD, PhD [address] [facility] [address] [place] [address] Oncologist Medical Oncology 02/10/24 Diego Apodaca MD [address] [place] [phone] Gastroenterology 02/16/24 documented as of this encounter
--- OUTSIDE RECORDS SUMMARY | 2025-01-01 14:48 | XMS_ITS | Clinical Summary ---
Author Organization [facility] Address [address] [place] [address] [place] [address] Care Team Providers Care [employer]ed [employer] Contact Printer Name Role Phone Rodney Olivas MD Unavailable Cheikh Coelho MD Unavailable [phone] Erin Whiteside RIVER RAFTING GUIDE Primary Care Provider + Lavern Paul MD, MPH Unavailable [phone] Ron Ruano DO Unavailable [phone] Dolores Johnson FIELD OPERATIONS MANAGER-[facility] Unavailable [phone] Vinicius Gomes MD, PhD Unavailable [phone] Diego Apodaca MD Unavailable [phone] Allergies Active Allergy Reactions Criticality Noted Date Comments Metronidazole 11/26/2023 Gabapentin Nausea Only 10/07/2022 Medications lamoTRIgine 100 MG tablet Take 0.5 tablets by mouth daily. Active FLUoxetine 20 MG capsule Take 2 capsules by mouth daily. Active Loperamide 2 MG capsule Take 1 capsule by mouth as needed for Diarrhea. 2 stat then 1 cap after each loose stool Active Probiotic Product (PROBIOTIC PO) Take by mouth. + Prebiotic Active Octreotide Acetate 100 MCG/ML Solution Prefilled Syringe prefilled syringe Inject 1 mL under the skin 3 times daily as needed for Other (carcinoid syndrome). 90 mL 4 Active Additional Information Patient not taking.Reported on 11/09/2024 Multiple Vitamins-Minera ls (Multivitamin w/ minerals, THERAPEUTIC-M,) tablet Take 1 tablet by mouth daily. Active Ibuprofen 400 MG tablet Take 1 tablet by mouth every 6 hours as needed for Mild Pain. Active Acetaminophen 325 MG tablet Take 2 tablets by mouth every 4 hours. Active Ondansetron 4 MG tablet Take 1 tablet by mouth every 8 hours as needed for Nausea / Vomiting. 60 tablet 025 Active Galcanezumab-gn lm (Emgality) 120 MG/ML Solution Auto-injectorIn dications:Chron ic migraine without aura without status migrainosus, not intractable Inject 120 mg under the skin every 30 days. Use 1ml 30days after the initial loading dose of 2ml. Afterwards, continue to use it every 30 days. 1 mL 5 Active Rimegepant (Nurtec) 75 MG Tab Dispersible Take 1 tablet by mouth daily as needed for up to 96 doses. Use one tablet at the onset of severe migraine. Don't exceed one tablet within 24 hours. 8 tablet 5 Active rizatriptan 10 MG tablet Take 1 tablet by mouth as needed (for severe headache/migrai ne). 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/21/2022 Cancer Staging:Pathologic stage from 05/22/2022:Stage IVC(TX, N1, M1b) - Unsigned Encounters Date Type Department Care Team Description 12/28/2024 Medication Management Neurological Specialty [facility] [address] [place] [address] Roge Yanes MD 12/25/2024 Results Follow-Up [facility] [address] [place] [address] Shannan Pleitez MD URINE PROTEIN/CREA RATIO, RANDOM, CYCLIC CITRULLINATE PEPTIDE AB, RHEUMATOID FACTOR, Additional followed-up results: 9 12/21/2024 9:00 AM EDT Office Visit [facility] [address] [place] [address] Shannan Pleitez MD 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 No prior head image. Obtain updated brain images.) 11/09/2024 3:15 PM EDT Office Visit Neurological Specialty [facility] [address]th [place] [address] Roge Yanes MD Chronic migraine without aura without status migrainosus, not intractable (Primary Dx) 11/09/[address] [facility] Sp[facility] [address] [place] [address] Roge Yanes MD Chronic migraine without aura without status migrainosus, not intractable (Primary Dx) from Last 3 Months Family History Medical History Relation Name Comments Cancer Cousin Maternal 3rd cousin Neuroend ocrine cancer Cancer Maternal Aunt 1 THYROID Breast Cancer Maternal Aunt 2 Heather Invasive du ctal carcinoma stage 4 Lung Cancer Maternal Grandfather Myocardial Infarction Maternal Grandmother Leukemia Other 1 Maternal great Aunt Leukemia Other 2 Maternal great Aunt Breast Cancer Other 3 Maternal great aunt Cancer Other 4 Maternal great Aunt Uterine Relation Name Status Comments Cousin Maternal 3rd cousin Father Alive Maternal Aunt 1 Alive Maternal Aunt 2 Heather Maternal Grandfather Maternal Grandmother Mother Alive Other 1 Maternal great Aunt Other 2 Maternal great Aunt Alive Other 3 Maternal great aunt Alive Other 4 Maternal great Aunt Alive Paternal Grandfather Paternal Grandmother Social History Tobacco Use Types Packs/Day Years [...] Orientation Straight 09/11/2024 9: 47 AM EST Last Filed Vital Signs Vital Sign Reading Time Taken Comments Blood Pressure 108/70 12/21/2024 8:59 AM EDT Pulse 88 12/21/2024 8:59 AM EDT Temperature 37.2 C (98.9 F) 11/09/2024 2:54 PM EDT Respiratory Rate 16 12/21/2024 8:59 AM EDT Oxygen Saturation 99% 12/21/2024 8:59 AM EDT Inhaled Oxygen Concentration - - Weight 68.7 kg (151 lb 6.4 oz) 12/21/2024 8:59 A M EDT Height 154.9 cm (5' 1 ) 11/09/2024 2:54 PM EDT Body Mass Index 28.61 11/09/2024 2:54 PM EDT Plan of Treatment Upcoming Encounters Date Type Department Care Team (Late st Contact Info) Description 01/22/2025 9:30 AM EDT Clinical Support Encounter Clinical Lab [place] [address] [address] [facility] [address] [place] [phone] Christopher Moralez FIELD OPERATIONS MANAGER-RIVER RAFTING GUIDE [address] [place] [address] 01/22/2025 10:45 AM EDT Appointment Imaging at [facility] [address] [place] [phone] Christopher Moralez FIELD OPERATIONS MANAGER-RIVER RAFTING GUIDE [address] [place] [address] 01/29/2025 12:00 PM EDT Office [facility] [address] [facility] [address] [place] [phone] Christopher Moralez FIELD OPERATIONS MANAGER-RIVER RAFTING GUIDE [address] [place], [place] [id number] Health Maintenance Due Date Last Done Comments HEPATITIS C VIRUS SCREENING 1997 HPV VACCINE (2 - Risk 3-dose series) 09/11/201007/20 HIV SCREENING DISCUSSION 2012 PNEUMOCOCCAL VACCINE SERIES (1 of 2 - PCV) 2016 ZOSTER (SHINGLES) VACCINE (1 of 2) 2016 CERVICAL CANCER SCREENING DISCUSSION 2018 TETANUS 08/14/2020 08/14/2010 COVID-19 VACCINE (2 - Pfizer risk series) 07/10/2021 06/19/2021 INFLUENZA VACCINE (Season Ended) 2025 04/28/20 HEP B VACCINE Completed 09/20/2000, 02/1998, 1997 HPV VACCINE ADOL Discontinued 08/14/2010 TDAP (ADULT) Completed 08/14/2010 Procedures Procedure Name Priority Date/Time Associated Diagnosis Comments EXTRA MICRO Routine 12/21/2024 9:47 AM EDT HUNTER positive URINALYSIS REFLEX TO CULTURE PERFORMABLE Routine 12/21/2024 9:47 AM EDT HUNTER positive URINE PROTEIN/CREA RATIO, RANDOM Routine 12/21/2024 9:47 AM EDT HUNTER positive URINALYSIS REFLEX TO CULTURE Routine 12/21/2024 9:47 AM EDT HUNTER positive CBC AND ELECTRONIC DIFF Routine 12/21/2024 9:44 AM EDT HUNTER positive C3,C4 Routine 12/21/2024 9:44 AM EDT HUNTER positive SEDIMENTATION RATE, AUTOMATED Routine 12/21/2024 9:44 AM EDT HUNTER positive C REACTIVE PROTEIN Routine 12/21/2024 9: 44 AM EDT HUNTER positive CBC, EDIF, PLATELET Routine 12/21/2024 9 :44 AM EDT HUNTER positive COMPREHENSIVE METABOLIC PANEL Routine 12/21/2024 9:44 AM EDT HUNTER positive CK Routine 12/21/2024 9:44 AM EDT HUNTER positive ALDOLASE Routine 12/21/2024 9:44 AM EDT HUNTER positive RHEUMATOID FACTOR Routine 12/21/2024 9:4 4 AM EDT HUNTER positive CYCLIC CITRULLINATE PEPTIDE AB Routine 12/21/2024 9:44 AM EDT HUNTER positive from Last 3 Months Results * URINALYSIS REFLEX TO CULTURE PERFORMABLE (12/21/2024 9:47 AM EDT) Color Yellow Yellow 12/21/2024 11:10 AM EDT [facility] Appearance Urine Clear Clear 12/22/19 11:10 AM EDT [facility] Glucose Urine Negative Negative 12/21/2024 11:10 AM EDT [facility] Ketones Urine Negative Negative 12/21/2024 11:10 AM EDT [facility] Specific [place] Urine 1.021 1.001 - 1.035 12/21/2024 11:10 AM EDT [facility] Blood Urine Negative Negative 12/21/2024 11:10 AM EDT [facility] pH Urine 5.0 5.0 - 7.0 12/21/2024 11:10 AM EDT [facility] Protein Urine Negative Negative 12/21/2024 11:10 AM EDT [facility] Urobilinogen Urine 0.2 E.U./dL 0.2 E.U/dL, 1.0 E.U/dL 12/21/2024 11:10 AM EDT [facility] Nitrites Urine Negative Negative 12/21/2024 11:10 AM EDT [facility] Leukocyte Esterase Negative Negative 12/21/2024 11:10 AM EDT [facility] RBC Urine 0-2 0 - 2 /HPF 12/21/2024 11:10 AM EDT [facility] WBC Urine 0 - 5 0 - 5 /HPF 12/21/2024 11:10 AM EDT [facility] Squamous/Epithel ial Cells, Urine 3-5/hpf = 1+ 0-2/hpf, 3-5/hpf = 1+ 12/21/2024 11:10 AM EDT [facility] Bacteria ABSENT ABSENT 12/21/2024 11:10 AM EDT [facility] Urine URINE SPECIMEN OBTAINED BY CLEAN CATCH PROCEDURE / Unknown 12/21/2024 9:47 AM EDT 12/21/2024 9:47 AM EDT us Shannan Pleitez MD BODY FLUIDS & STOOLS ORDERABLES Final Result [facility] [address] [address] * EXTRA MICRO (12/21/2024 9:47 AM EDT) Urine URINE SPECIMEN OBTAINED BY CLEAN CATCH PROCEDURE / Unknown 12/21/2024 9:47 AM EDT 12/21/2024 9:47 AM EDT us Shannan Pleitez MD BODY FLUIDS & STOOLS ORDERABLES Final Result [facility] [address] [address] * URINE PROTEIN/CREA RATIO, RANDOM (12/21/2024 9:47 AM EDT) Urine Creatinine 134.51 mg/dL 12/21/2024 11:29 AM EDT [facility] Urine Protein 6 mg/dL 12/21/2024 11:29 AM EDT [facility] Prot/Creat Ratio 0.045 mg/mg 12/21/2024 11:29 AM EDT [facility] Urine 12/21/2024 9:47 AM EDT 12/21/2024 9:47 AM EDT us Shannan Pleitez MD BODY FLUIDS & STOOLS ORDERABLES Final Result [facility] [address] [address] * CBC AND ELECTRONIC DIFF (12/21/2024 9:44 AM EDT) WBC Count 8.08 3.99 - 11.19 K/uL 12/21/2024 11:08 AM EDT [facility] RBC Count 4.74 3.91 - 5.04 M/uL 12/21/2024 11:08 AM EDT [facility] Hemoglobin 13.1 11.4 - 15.2 g/dL 12/21/2024 11:08 AM EDT [facility] Hematocrit 40.9 34.9 - 44.3 % 12/21/2024 11:08 AM EDT [facility] Mean Cell Volume 86.3 79.6 - 97.7 fL 12/21/2024 11:08 AM EDT [facility] Mean Cell Hgb 27.6 25.9 - 33.9 pg 12/21/2024 11:08 AM EDT [facility] Mean Cell Hgb Conc 32.0 31.4 - 35.9 g/dL 12/21/2024 11:08 AM EDT [facility] RBC Distribution 12.6 10.8 - 14.9 % 12/21/2024 11:08 AM EDT [facility] Platelet Count 354 150 - 393 K/uL 12/21/2024 11:08 AM EDT [facility] Mean Platelet Volume 10.2 8.5 - 12.2 fL 12/21/2024 11:08 AM EDT [facility] DIFF STATUS Electronic Differential 12/21/2024 11:08 AM EDT [facility] Segs + Bands Auto 61.7 % 12/21/2024 11:08 AM EDT [facility] Immature Grans % 0.2 % 12/21/2024 11:08 AM EDT [facility] Lymphocyte % Auto 27.1 % 12/21/2024 11:08 AM EDT [facility] Monocyte % Auto 6.6 % 11:08 AM EDT [facility] Eosinophil % Auto 3.7 % 12/21/2024 11:08 AM EDT [facility] Basophil % Auto 0.7 % 11:08 AM EDT [facility] Nucleated RBC 0.0 <=0.2 /100 WBC 12/21/2024 11:08 AM EDT [facility] Segs + Bands,Absolute Auto 4.98 1.64 - 7.28 K/uL 12/21/2024 11:08 AM EDT [facility] Immature Grans Absolute <0.04 <=0.08 K/uL 12/21/2024 11:08 AM EDT [facility] Abs Lymph Auto 2.19 1.16 - 3.51 K/uL 12/21/2024 11:08 AM EDT [facility] Abs [place] Auto 0.53 0.22 - 0.87 K/uL 12/21/2024 11:08 AM EDT [facility] Abs Eos Auto 0.30 0.00 - 0.42 K/uL 12/21/2024 11:08 AM EDT [facility] Abs Baso Auto 0.06 0.00 - 0.15 K/uL 12/21/2024 11:08 AM EDT [facility] Blood Venipuncture / Unknown 12/21/2024 9:44 AM EDT 12/21/2024 9:45 AM EDT us Shannan Pleitez MD HEMATOLOGY ORDERABLES Final Resu lt [facility] [address] [place] [address] * C REACTIVE PROTEIN (12/21/2024 9:44 AM EDT) C Reactive Protein 0.60 <10.00 mg/L 12/21/2024 11:30 AM EDT [facility] Blood Venipuncture / Unknown 12/21/2024 9:44 AM EDT 12/21/2024 9:45 AM EDT us Shannan Pleitez MD IMMUNOLOGY ORDERABLES Final Resu lt Performing Organization Address City/[facility] Co de Phone Number [facility] [address] [address] * C3,C4 (12/21/2024 9:44 AM EDT) C3 155 87 - 200 mg/dL 12/21/2024 11:30 AM EDT [facility] C4 38 18 - 52 mg/dL 12/21/2024 11:30 AM EDT [facility] Blood Venipuncture / Unknown 12/21/2024 9:44 AM EDT 12/21/2024 9:45 AM EDT us Shannan Pleitez MD IMMUNOLOGY ORDERABLES Final Resu lt Performing Organization Address [facility] de Phone Number [facility] [address] [address] * CYCLIC CITRULLINATE PEPTIDE AB (12/21/2024 9:44 AM EDT) Cyclic Citrullinated Peptide Ab <0.54 <5.00 U/mL 12/21/2024 2:49 PM EDT [facility] Blood Venipuncture / Unknown 12/21/2024 9:44 AM EDT 12/21/2024 9:45 AM EDT us Shannan Pleitez MD ENDOCRINOLOGY Final Result Performing Organization Address City/[facility] Co de Phone Number [facility] [address] [address] * ALDOLASE (12/21/2024 9:44 AM EDT) Aldolase 2.9 <7.7 U/L 12/24/2024 10:17 AM EDT [facility] Comment: ADDITIONAL INFORMATION This test has been modified from the learning and development specialist's instructions. Its performance characteristics were determined by [facility] in a manner consistent with CLIA requirements. This test has not been cleared or approved by the U.S. Food and Drug Administration. Test Performed by: [place] [address] Shirt Creaser: Jami Sher Ph.D.; CLIA# [id number] Blood Venipuncture / Unknown 12/21/2024 9:44 AM EDT 12/21/2024 9:45 AM EDT us Shannan Pleitez MD CHEMISTRY ORDERABLES Final Resul t [facility] [address] [place] [address], [place] [phone] * SEDIMENTATION RATE, AUTOMATED (12/21/2024 9:44 AM EDT) Pathologist [facility] ESR Westergren 10 <20 mm/hr 12/21/2024 11:44 AM EDT [facility] Blood Venipuncture / Unknown 12/21/2024 9:44 AM EDT 12/21/2024 9:45 AM EDT us Shannan Pleitez MD HEMATOLOGY ORDERABLES Final Resu lt [facility] [address] [place] [address] * RHEUMATOID FACTOR (12/21/2024 9:44 AM EDT) Pathologist [facility] Rheumatoid Factor <10 <=14 IU/mL 12/21/2024 11:33 AM EDT [facility] Blood Venipuncture / Unknown 12/21/2024 9:44 AM EDT 12/21/2024 9:45 AM EDT us Shannan Pleitez MD IMMUNOLOGY ORDERABLES Final Resu lt Performing Organization Address [facility] Co de Phone Number [facility] [address] [address] * CK (12/21/2024 9:44 AM EDT) Creatine Kinase 46 30 - 184 U/L 12/21/2024 11:29 AM EDT [facility] Blood Venipuncture / Unknown 12/21/2024 9:44 AM EDT 12/21/2024 9:45 AM EDT us Shannan Pleitez MD CHEMISTRY ORDERABLES Final Resul t Performing Organization Address [facility] de Phone Number [facility] [address] [address] * COMPREHENSIVE METABOLIC PANEL (12/21/2024 9:44 AM EDT) Sodium 140 135 - 145 mmol/L 12/21/2024 11:29 AM EDT [facility] Potassium 4.8 3.5 - 5.0 mmol/L 12/21/2024 11:29 AM EDT [facility] Chloride 103 98 - 108 mmol/L 12/21/2024 11:29 AM EDT [facility] BUN 10 7 - 25 mg/dL 12/21/2024 11:29 AM EDT [facility] Creatinine 0.58 0.50 - 1.20 mg/dL 12/21/2024 11:29 AM EDT [facility] Glucose 77 Nonfasting : 70-179 mg/dL; Fastin-99 mg/dL 12/21/2024 11:29 AM EDT [facility] Bilirubin Total 0.3 <1.5 mg/dL 11:29 AM EDT [facility] Albumin 4.9 3.5 - 5.0 g/dL 12/21/2024 11:29 AM EDT [facility] Total Protein 7.6 6.4 - 8.3 g/dL 12/21/2024 11:29 AM EDT [facility] AST 12 10 - 39 U/L 12/21/2024 11:29 AM EDT [facility] ALP 50 32 - 126 U/L 12/21/2024 11:29 AM EDT [facility] Calcium 10.0 8.6 - 10.5 mg/dL 12/21/2024 11:29 AM EDT [facility] CO2 29 21 - 31 mmol/L 12/21/2024 11:29 AM EDT [facility] ALT 13 9 - 48 U/L 12/21/2024 11:29 AM EDT [facility] Bun/Crea Ratio 17 12/21/2024 11:29 AM EDT [facility] Osmolality (Calculated) 292 278 - 305 mOsm/kg 12/21/2024 11:29 AM EDT [facility] Anion Gap 13 7 - 17 mmol/L 12/21/2024 11:29 AM EDT [facility] eGFR, CKD-EPI, Female >90 >=60 mL/min/1.7 3m2 12/21/2024 11:29 AM EDT [facility] Comment:Reported eGFR is bas ed on the CKD-EPI 2020 equation using creatinine, age, and sex. Blood Venipuncture / Unknown 12/21/2024 9:44 AM EDT 12/21/2024 9:45 AM EDT us Shannan Pleitez MD CHEMISTRY ORDERABLES Final Resul t [facility] [address] [place] [address] from Last 3 Months Insurance [employer] Care Teams [employer] Contact Printer Relationship Specialty Start Date End Date Erin Whiteside RIVER RAFTING GUIDE [address] [facility] [phone] PCP - General 03/10/23 Rodney Olivas MD Hematology 03/19/22 Cheikh Coelho MD [address] [place] [address] County Attorney Cardiovascular Disease 10/07/22 Lavern Paul MD, MPH [address] [facility] [place] 10th [place] [address] Oncologist Medical Oncology 03/31/23 Ron Ruano DO [address] [facility] [address] [place] [address] Obstetrics & Gynecology 04/06/23 Dolores Johnson APRN-RIVER RAFTING GUIDE [address] [facility] [address] [place] [address] Pediatric Physical Therapist Certified Nurse Practitioner 02/10/24 Vinicius Gomes MD, PhD [address] [facility] 8th [place] [phone] Oncologist Medical Oncology 02/10/24 Diego Apodaca MD [address] [place] [phone] Gastroenterology 02/16/24
--- OUTSIDE RECORDS SUMMARY | 2025-01-01 14:48 | XMS_ITS | Encounter Summary ---
Author Organization [facility] enter Address [address] [place] [address] Care Team Providers Care Counterintelligence Analyst Name Role Phone Rodney Olivas MD Unavailable Cheikh Coelho MD Unavailable [phone] Erin Whiteside TIRE SORTER Primary Care Provider + Lavern Paul MD, MPH Unavailable [phone] Ron Ruano DO Unavailable [phone] Dolores Johnson REFRESH TECHNICIAN-TIRE SORTER Unavailable [phone] Vinicius Gomes MD, PhD Unavailable [phone] Diego Apodaca MD Unavailable [phone] Reason for Visit * Reason Onset Date Comments Appointment 09/21/2024 Encounter Details Date Type Department Care Team (Late st Contact Info) Description 09/21/2024 Telephone Division of Medical Oncology [address] [place] [address] [place] [address] Any Hayes, REFRESH TECHNICIAN-TIRE SORTER [address] [place], [place] [phone] Appointment Social History Tobacco Use Types Packs/Day Years [...] encounter Miscellaneous Notes * Telephone Encounter - Yoselyn Ochoa - 09/21/2024 4:14 PM EST Appt changed to telehealth Pt is aware Thank you * Telephone Encounter - Lacey Stuart - 09/21/2024 10:41 AM EST Patient called in wanting to know if her appointment on 09/28 an be a televisit. Would like a call back. documented in this encounter Plan of Treatment Upcoming Encounters Date Type Department Care Team (Late st Contact Info) Description 01/22/2025 9:30 AM EDT Clinical Support Encounter Clinical Lab [place] [address] [address] [place] 1st [place] [address] Christopher Moralez REFRESH TECHNICIAN-TIRE SORTER [address] [place] [address] 01/22/2025 10:45 AM EDT Appointment Imaging at [facility] [address] [place] [phone] Christopher Moralez REFRESH TECHNICIAN-TIRE SORTER [address] [place] [address] 01/29/2025 12:00 PM EDT Office Visit Division of Medical Oncology [address] [place] 10th [place] [address] Christopher Moralez REFRESH TECHNICIAN-TIRE SORTER [address] [place] [phone] documented as of this encounter Visit Diagnoses Not on filedocumented in this encounter Additional Health Concerns Assessment Noted Time PHQ-9 Depression Total Score: 0 11/08/19 24 9:40 AM EDT documented as of this encounter Care Teams Counterintelligence Analyst Relationship Specialty Start Date End Date Erin Whiteside CNP [address] [place] [address] PCP - General 03/10/23 Rodney Olivas MD Hematology 03/19/22 Cheikh Coelho MD [address] [place] [address] Checkroom Attendant Cardiovascular Disease 10/07/22 Lavern Paul MD, MPH [address] [place] 10[address] [place] [address] Oncologist Medical Oncology 03/31/23 Ron Ruano DO [address] [facility] [address] [place] [address] Obstetrics & Gynecology 04/06/23 Dolores Johnson, REFRESH TECHNICIAN-TIRE SORTER [address] [facility] 1 [place] [address] Oncology Nurse Navigator Certified Nurse Practitioner 02/10/24 Vinicius Gomes MD, PhD [address] [place] 8[address] [place] [address] Oncologist Medical Oncology 02/10/24 Diego Apodaca MD [address] [place] [address] Gastroenterology 02/16/24 documented as of this encounter
--- OUTSIDE RECORDS SUMMARY | 2025-01-01 14:48 | XMS_ITS | Encounter Summary ---
Author Organization [facility] enter Address [address] [place] [address] Care Team Providers Care Public Information Coordinator Name Role Phone Rodney Olivas MD Unavailable Archie Hugo MD, PhD Unavailable Unavailable Cheikh Coelho MD Unavailable [phone] Erin Whiteside CNP Primary Care Provider + Lavern Paul MD, MPH Unavailable [phone] Ron Ruano DO Unavailable [phone] Dolores Johnson APRN-EDGE BLACKER Unavailable [phone] Vinicius Gomes MD, PhD Unavailable [phone] Diego Apodaca MD Unavailable [phone] Diego Apodaca MD Unavailable [phone] Reason for Referral * MRI/CAT Scan (Routine) - Closed Specialty Diagnoses / Procedures Referred By Katharine morales Referred To Contact Diagnoses 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 Procedures CT ABDOMEN/PELVIS WITH AND WITHOUT CONTRAST CHG CT SCAN,ABDOMENT AND PELVIS,COMBO Yudelka Moralez APRN-CNP [address] [place] [address] Phone: tel: fax: Referral ID Status Reason Start Date Expiration Date Visits Re quested Visits Authorized [id number] Closed 11/10/2023 12/04/2024 1 1 * Consultation (Routine) - Closed Specialty Diagnoses / Procedures Referred By Katharine morales Referred To Contact Gastroenterology Diagnoses Hepatomegaly Transaminitis Yudelka Moralez APRN-CNP [address] [place] [address] Phone: tel: fax: Referral ID Status Reason Start Date Expiration Date Visits Re quested Visits Authorized [id number] Closed 11/10/2023 12/04/2024 1 1 * Consultation (Routine) - Closed Specialty Diagnoses / Procedures Referred By Katharine morales Referred To Contact Oncology Diagnoses Low grade mucinous neoplasm of appendix Yudelka Moralez APRN-CNP [address] [place] [address] Phone: tel: fax: Referral ID Status Reason Start Date Expiration Date Visits Re quested Visits Authorized [id number] Closed 11/10/2023 12/04/2024 1 1 Reason for Visit * Reason Onset Date Comments Imaging Results 11/09/2023 Encounter Details Date Type Department Care Team (Late st Contact Info) Description 11/09/2023 Telephone Division of Endocrinology [address] [facility] 10th [place] [address] Candida Giordano Imaging Results Social History Tobacco Use Types Packs/Day [...] encounter Miscellaneous Notes * Telephone Encounter - MAMTA Travis - 11/10/2023 4:06 PM EDT Post-visit f/up LAMN: Dr. Deidre Castanon will replace Dr. Hugo. However, pt would like to see a Med-Onc specialist so we will refer her to see Dr. Gomes. (Emailed him) hepatomegaly and elevated LFTs, refer to hepatic team. NET: RTC with Dr. Paul in 3m and restaging CT a/p and labs 2w prior to RTC I reviewed the rational of not having CT N/C. Certainly, we can repeat them if clinically indicated. I called the pt re: the above who agreed the plan. All orders in. Team, please help schedule all the above, referral x2, and NET f/up. Thanks Ye * Telephone Encounter - MAMTA Travis - 11/10/2023 11:21 AM EDT Per hepatic team: Reviewed labs and imaging. If she does not have a reason to have elevated LFT, I would refer to Hepatology for hepatomegaly and elevated LFTs. I don't have a grave concern, but she is young to have these changes.. A work up will rule out a significant problem. Will relay to the pt. * Telephone Encounter - MAMTA Travis - 11/09/2023 6:25 PM EDT Post-visit f/up: Called pt that nonspecific LNs vs nodules. Will continue SSA from NET, RTC with Dr. Paul in 3m andrestaging CT a/p and labs 2w prior to RTC Pt has questions about Trace pelvic free fluid. This is non-concerning finding from NET. But will check with surg-onc team. (Dr. Hugo left the practice here. Will find out who is covering) Mild hepatomegaly measuring 19.8 cm, mildly increased from 18.8 cm on prior in setting of mild transminitis. I will reach out to the hepatic team. She also questioned about CT Neck and CT chest. Explained from GI NET low grade, usually mets are confined in a/p. pt previously got CT neck due to Palpable neck LN , left shoulder discomfort And CT chest due to Thymic uptake on Ga PET. SOB/chest discomfort especially when bending over Given both CT N/C and Ga PET negative, we won't need to repeat CT N/C. But will just check from LMAN standpoint. FYI to Dr. Paul. * Telephone Encounter - MAMTA Travis - 11/09/2023 4:07 PM EDT Will review with Dr. Paul: New nonspecific 3 mm nodule versus lymph node at the anterior right abdomen. Other nonspecific small nodules versus lymph nodes in the anterior abdomen are stable. Thanks Yudelka * Telephone Encounter - Candida Giordano - 11/09/2023 1:11 PM EDT Pt called in wanting to speak to YUDELKA about her Ct results. She would like a Cb to go over these documented in this encounter Plan of Treatment Upcoming Encounters Date Type Department Care Team (Late st Contact Info) Description 01/22/2025 9:30 AM EDT Clinical Support Encounter Clinical Lab [place] [address] [address] [facility] 1st [place] [address] Yudelka Moralez APRN-CNP [address] [place] [address] 01/22/2025 10:45 AM EDT Appointment Imaging at [facility] [address] [place] [phone] Yudelka Moralez APRN-CNP [address] [place] [address] 01/29/2025 12:00 PM EDT Office Visit Division of Medical Oncology [address] [facility] 10[address] [place] [address] Yudelka Moralez APRN-CNP [address] [place] [address] Scheduled Referrals Name Type Priority Associated Diagnoses Order Schedule AMB REFERRAL TO ONCOLOGY Outpatient Referral Routine Low grade mucinous neoplasm of appendix Ordered: 11/10/2023 AMB REFERRAL TO HEPATOLOGY Outpatient Referral Routine Hepatomegaly Transaminitis Ordered: 11/10/2023 documented as of this encounter Results * CHROMOGRANIN A (02/07/2024 2:09 PM EDT) Chromogranin A <20 <93 ng/mL 02/08/2024 2:45 PM EDT [facility] [employer] Comment: ADDITIONAL INFORMATION The testing method is a homogeneous time-resolved immunofluorescent assay manufactured by [employer] and performed on the Cuponzote Kryptor Compact Plus. Values obtained with different [...] examination and other findings. Test Performed by: [facility] [address] [place] [address] Forming Press Operator: Jami Sher Ph.D.; CLIA# [id number] Blood Venipuncture / Unknown 02/07/2024 2:09 PM EDT 02/07/2024 2:13 PM EDT us Yudelka Moralez APRN-[facility] CHEMISTRY ORDERABLES Final Resu Performing Organization Address City/[facility]/ZIP Co de Phone Number [facility] [address] [place] [phone], * LACTATE DEHYDROGENASE (02/07/2024 2:09 PM EDT) Pathologist [facility] LD Total 110 100 - 190 U/L 02/07/2024 2:33 PM EDT [facility] Blood Venipuncture / Unknown 02/07/2024 2:09 PM EDT 02/07/2024 2:13 PM EDT us Yuedlka Moralez RADIO MECHANIC HELPER-[facility] CHEMISTRY ORDERABLES Final Resu lt [facility] [address] [place] [address] * (ABNORMAL) COMPREHENSIVE METABOLIC PANEL (02/07/2024 2:09 PM EDT) Sodium 134(L) 135 - 145 mmol/L 02/07/2024 2:33 PM EDT [facility] Potassium 4.0 3.5 - 5.0 mmol/L 02/07/2024 2:33 PM EDT [facility] Chloride 98 98 - 108 mmol/L 02/07/2024 2:33 PM EDT [facility] BUN 6(L) 7 - 25 mg/dL 02/07/2024 2:33 PM EDT [facility] Creatinine 0.58 0.50 - 1.20 mg/dL 02/07/2024 2:33 PM EDT [facility] Glucose 108(H) 70 - 99 mg/dL 02/07/2024 2:33 PM EDT [facility] Bilirubin Total 0.7 <1.5 mg/dL 2:33 PM EDT [facility] Albumin 4.8 3.5 - 5.0 g/dL 02/07/2024 2:33 PM EDT [facility] Total Protein 7.5 6.4 - 8.3 g/dL 02/07/2024 2:33 PM EDT [facility] AST 26 10 - 39 U/L 02/07/2024 2:33 PM EDT [facility] ALP 56 32 - 126 U/L 02/07/2024 2:33 PM EDT [facility] Calcium 9.5 8.6 - 10.5 mg/dL 02/07/2024 2:33 PM EDT [facility] CO2 29 21 - 31 mmol/L 02/07/2024 2:33 PM EDT [facility] ALT 41 9 - 48 U/L 02/07/2024 2:33 PM EDT [facility] Bun/Crea Ratio 10 02/07/2024 2:33 PM EDT [facility] Osmolality (Calculated) 280 278 - 305 mOsm/kg 02/07/2024 2:33 PM EDT [facility] Anion Gap 11 7 - 17 mmol/L 02/07/2024 2:33 PM EDT [facility] eGFR, CKD-EPI, Female >90 >=60 mL/min/1.7 3m2 02/07/2024 2:33 PM EDT [facility] Comment:Reported eGFR is bas ed on the CKD-EPI 2020 equation using creatinine, age, and sex. Blood Venipuncture / Unknown 02/07/2024 2:09 PM EDT 02/07/2024 2:13 PM EDT Yudelka Moralez RADIO MECHANIC HELPER-EDGE BLACKER CHEMISTRY ORDERABLES Final Resu lt [facility] [address] [place] [id number] * CT ABDOMEN/PELVIS WITH AND WITHOUT CONTRAST (02/07/2024 1:56 PM EDT) Anatomical Region Laterality Modality Abdomen, Pelvis Computed Tomogra phy 02/08/2024 12:1 7 PM EDT Impressions 02/08/2024 12:17 PM EDT IMPRESSION: No evidence of metastatic disease in [...] error, please notify the sender immediately at [phone] and permanently delete the original report and destroy any copies or printouts. Narrative 02/08/2024 12:17 PM EDT EXAM: CT ABDOMEN/PELVIS WITH AND WITHOUT CONTRAST [...] VESSELS: Unremarkable BONES AND SOFT TISSUES: Unremarkable Procedure Note Yoselyn Saldaña MD - 02/08/2024 EXAM: CT ABDOMEN/PELVIS WITH AND WITHOUT CONTRAST COMPARISON: 11/06/2023 CLINICAL INDICATIONS: hx of neuroendocrine cancer TECHNIQUE: CT scanning was performed through the abdomen prior to the administration of intravenous contrast. Following the administration of intravenous contrast, CT scanning was performed through the abdomen duringthe arterial phase and through the abdomen and pelvis during the portalvenous phase. Oral contrast was administered. PROTOCOL: Liver protocol FINDINGS: LOWER THORAX: 5 mm subpleural left lower lobe nodule, stable since02/03/2022, likely benign. LIVER: Unremarkable BILIARY: Cholecystectomy. PANCREAS: Unremarkable SPLEEN: Unremarkable ADRENAL GLANDS: Unremarkable KIDNEYS/URETERS: Unremarkable PELVIC ORGANS/BLADDER: Unremarkable GI TRACT: Right hemicolectomy. Mild near diffuse colonic muralthickening. No bowel obstruction. PERITONEUM: No free air or fluid LYMPH NODES: No enlarged lymph nodes VESSELS: Unremarkable BONES AND SOFT TISSUES: Unremarkable IMPRESSION IMPRESSION: No evidence of metastatic disease in the abdomen or pelvis. Near diffuse mild colonic mural thickening, compatible with nonspecific colitis. Piotr Topete M.D. This report has been electronically signed and verified by theRadiologist whose name is printed above. This report contains privileged and confidential information and isintended solely for the use of the individual or entity to which it is addressed.If you are not the intended recipient of this report, you are herebynotified that any copying, distribution, dissemination or action taken in relationto the contents of this report is strictly prohibited and may be unlawful. Ifyou have received this report in error, please notify the sender immediatelyat [phone] and permanently delete the original report and destroy anycopies or printouts. 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 Neoplasm of unspecified nature of digestive system documented in this encounter Additional Health Concerns Assessment Noted Time PHQ-9 Depression Total Score: 0 11/08/19 24 9:40 AM EDT documented as of this encounter Care Teams Public Information Coordinator Relationship Specialty Start Date End Date Erin Whiteside CNP [address] [place] [address] PCP - General 03/10/23 Rodney Olivas MD Hematology 03/19/22 Archie Hugo MD, PhD Surgeon Surgical Oncology 07/08/22 02/10/24 Cheikh Coelho MD [address] [place] [address] Commercial Sales Consultant Cardiovascular Disease 10/07/22 Lavern Paul MD, MPH [address] [facility] [place] 10th [place] [address] Oncologist Medical Oncology 03/31/23 Ron Ruano DO [address] [facility] 1 [facility] [place] [address] Obstetrics & Gynecology 04/06/23 Dolores Johnson APRN-EDGE BLACKER [address] [facility] 1 [place] [address] Advertising Operations Coordinator Certified Nurse Practitioner 02/10/24 Vinicius Gomes MD, PhD [address] [place] [address] [place] [address] Oncologist Medical Oncology 02/10/24 Diego Apodaca MD [address] [place] [address] [place] [address] Advertising Operations Coordinator Internal Medicine 02/11/24 02/15/24 Diego Apodaca MD [address] [place] [address] Gastroenterology 02/16/24 documented as of this encounter
--- OUTSIDE RECORDS SUMMARY | 2025-01-01 14:48 | XMS_ITS | Encounter Summary ---
Author Organization [facility] enter Address [address] [place] [address] Care Team Providers Care Computer Aided Design Operator Name Role Phone Rodney Olivas MD Unavailable Cheikh Coelho MD Unavailable [phone] Erin Whiteside MRP CONTROLLER Primary Care Provider + Lavern Paul MD, MPH Unavailable [phone] Ron Ruano DO Unavailable [phone] Dolores Johnson WATER QUALITY TECHNICIAN-[facility] Unavailable [phone] Vinicius Gomes MD, PhD Unavailable [phone] Diego Apodaca MD Unavailable [phone] Reason for Referral * MRI/CAT Scan (Routine) - Pending Review Specialty Diagnoses / Procedures Referred By Katharine t Referred To Contact Diagnoses Chronic migraine without aura without status migrainosus, not intractable Procedures MRI VENOGRAM BRAIN CHG MRA HEAD W/O CONTRST MATERIAL Beck Vitale MD [address] [address] Phone: tel: fax: Referral ID Status Reason Start Date Expiration Date V isits Requested Visits Authorized [id number] Pending Review 12/20/2024 01/14/2026 1 1 * MRI/CAT Scan (Routine) - Pending Review Specialty Diagnoses / Procedures Referred By Katharine morales Referred To Contact Diagnoses Chronic migraine without aura without status migrainosus, not intractable Procedures MRI BRAIN WITH AND WITHOUT CONTRAST CHG MRI BRAIN BRAIN STEM W/O W/CONTRAST MATERIAL Beck Vitale MD [address] [place] [address] Phone: tel: fax: Referral ID Status Reason Start Date Expiration Date V isits Requested Visits Authorized [id number] Pending Review 12/20/2024 01/14/2026 1 1 Reason for Visit * Reason Onset Date Comments Migraine 12/19/2024 Worsening migrai ne. No prior head image. Obtain updated brain images. Encounter Details Date Type Department Care Team (Late st Contact Info) Description 12/19/2024 Telephone [facility] [address] [place] [address] MD [address] [place], [place] [id number] Migraine (Worsening migraine. No prior head image. Obtain updated brain images.) Social History Tobacco Use Types Packs/Day Years [...] documented in this encounter Miscellaneous Notes * Addendum Note - Yadira Lane MD - 12/20/2024 4:28 PM EDTAddended by: YADIRA LANE on: 12/20/2024 04:28 PM Modules accepted: Orders documented in this encounter Plan of Treatment Upcoming Encounters Date Type Department Care Team (Late st Contact Info) Description 01/22/2025 9:30 AM EDT Clinical Support Encounter Clinical Lab [facility] [address] [facility] 1st [place] [address] Christopher Moralez, WATER QUALITY TECHNICIAN-MRP CONTROLLER [address] [place] [address] 01/22/2025 10:45 AM EDT Appointment Imaging at The [place] [address] [facility] 2nd [place] [address] Christopher Moralez, WATER QUALITY TECHNICIAN-MRP CONTROLLER [address] [place] [address] 01/29/2025 12:00 PM EDT Office Visit Division of Medical Oncology [address] [facility] 10th [place] [address] Christopher Moralez APRN-MRP CONTROLLER [address] [place] [address] Scheduled Orders Name Type Priority Associated Diagnoses Orde r Schedule MRI BRAIN WITH AND WITHOUT CONTRAST Imaging Routine Chronic migraine without aura without status migrainosus, not intractable Expected: 12/20/2024, Expires: 12/20/2025 MRI VENOGRAM BRAIN Imaging Routine Chronic migraine without aura without status migrainosus, not intractable Expected: 12/20/2024, Expires: 12/20/2025 documented as of this encounter Visit Diagnoses Diagnosis Chronic migraine without aura without status migrainosus, not intractable- Primary Chronic migraine without aura, without mention of intractable migraine without mention of status migrainosus documented in this encounter Additional Health Concerns Assessment Noted Time PHQ-9 Depression Total Score: 9 09/29/19 25 11:41 AM EDT documented as of this encounter Care Teams Computer Aided Design Operator Relationship Specialty Start Date End Date Erin Whiteside CNP [address] [place] [address] PCP - General 03/10/23 Rodney Olivas MD Hematology 03/19/22 Cheikh Coelho MD [address] [place] [address] Plug Shaper Hand Cardiovascular Disease 10/07/22 Lavern Paul MD, MPH [address] [place] [address] [place] [address] Oncologist Medical Oncology 03/31/23 Ron Ruano DO [address] [facility] [address] [place] [address] Obstetrics & Gynecology 04/06/23 Dolores Johnson, SPENCER-MRP CONTROLLER [address] [facility] [address] [place] [address] [address] Judge Certified Nurse Practitioner 02/10/24 Vinicius Gomes MD, PhD [address] [facility] [address] [place] [address] Oncologist Medical Oncology 02/10/24 Deigo Apodaca MD [address] [place] [address] Gastroenterology 02/16/24 documented as of this encounter
--- OUTSIDE RECORDS SUMMARY | 2025-01-01 14:48 | XMS_ITS | Encounter Summary ---
Author Organization [facility] enter Address [address] [place] [address] Care Team Providers Care Melt Down Furnace Operator Name Role Phone Rodney Olivas MD Unavailable Cheikh Coelho MD Unavailable [phone] Erin Whiteside IT CONSULTING DIRECTOR Primary Care Provider + Lavern Paul MD, MPH Unavailable [phone] [place] Ruano DO Unavailable [phone] Dolores Johnson SENIOR MAINFRAME DEVELOPER-IT CONSULTING DIRECTOR Unavailable [phone] Vinicius Gomes MD, PhD Unavailable [phone] Diego Apodaca MD Unavailable [phone] Encounter Details Date Type Department Care Team (Late st Contact Info) Description 09/21/2024 Telephone Division of Surgical Oncology [address] [address] Marcio Campos MD [address] [address] Social History Tobacco Use Types Packs/Day Years [...] Francia Chamberlain RN documented in this encounter Plan of Treatment Upcoming Encounters Date Type Department Care Team (Late st Contact Info) Description 01/22/2025 9:30 AM EDT Clinical Support Encounter Clinical Lab [facility] [address] [address] Christopher Moralez, SENIOR MAINFRAME DEVELOPER-IT CONSULTING DIRECTOR [address] [place] [address] 01/22/2025 10:45 AM EDT Appointment Imaging at The [place] [address] [address] Christopher Moralez, SENIOR MAINFRAME DEVELOPER-IT CONSULTING DIRECTOR [address] [place], [place] [id number] 01/29/2025 12:00 PM EDT Office Visit Division of Medical Oncology [address] [place] [address] [facility] [place] [address] Christopher Moralez, SENIOR MAINFRAME DEVELOPER-IT CONSULTING DIRECTOR [address] [place] [address] documented as of this encounter Visit Diagnoses Not on filedocumented in this encounter Additional Health Concerns Assessment Noted Time PHQ-9 Depression Total Score: 0 11/08/19 24 9:40 AM EDT documented as of this encounter Care Teams Melt Down Furnace Operator Relationship Specialty Start Date End Date Erin Whiteside IT CONSULTING DIRECTOR [address] [facility] [place] [address] PCP - General 03/10/23 Rodney Olivas MD Hematology 03/19/22 Cheikh Coelho MD [address] [facility] [place] [address] Salt Plant Operator Cardiovascular Disease 10/07/22 Lavern Paul MD, MPH [address] [place] [address] [facility] [place] [address] Oncologist Medical Oncology 03/31/23 [place] Ruano DO [address] [facility] [address] [place] [address] Obstetrics & Gynecology 04/06/23 Dolores Johnson, SENIOR MAINFRAME DEVELOPER-IT CONSULTING DIRECTOR [address] [facility] 1 [place] [address] Cyber Transport Systems Specialist Certified Nurse Practitioner 02/10/24 Vinicius Gomes MD, PhD [address] [facility] 8th [place] [address] Oncologist Medical Oncology 02/10/24 Diego Apodaca MD [address] [place], [place] [address] [place] [address] Gastroenterology 02/16/24 documented as of this encounter
--- OUTSIDE RECORDS SUMMARY | 2025-01-01 14:48 | XMS_ITS ---
Author Organization [facility] Address [address] [place] [address] [place] [address] Care Team Providers Care Plate Put In Worker Name Role Phone Rodney Olivas MD Unavailable Cheikh Coelho MD Unavailable [phone] Erin Whiteside WIDE PIECE GOODS INSPECTOR Primary Care Provider + Lavern Paul MD, MPH Unavailable [phone] [place] Ruano DO Unavailable [phone] Dolores Johnson INSURANCE SALES ASSOCIATE-[facility] Unavailable [phone] Vinicius Gomes MD, PhD Unavailable [phone] Diego Apodaca MD Unavailable [phone] Active Problems Problem Noted Date Diagnosed Date Obesity (BMI 30.0-34.9) 10/22/2022 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 Past Treatment and Therapy Plans ONCOLOGY SUPPORTIVE CARE A Plan Name Start Date Discontinue Date Treatment Medications Discontinue Reason Plan Provider Cycles OP OCTREOTIDE LAR [id number] 07/08/20 22 07/08/2022 No medications scheduled. Other - see comment Lavern Paul MD, MPH Treatment not started Lifetime Dose Tracking * Chemical Lifetime Dose Automatic Entry Manual Entr y Mitomycin 50.847 mg/m2 (90 mg) 50.847 mg/m2 (90 mg) 0 mg/m2 (0 mg)
--- OUTSIDE RECORDS SUMMARY | 2025-01-01 14:48 | XMS_ITS | Clinical Summary ---
Author Organization [facility] Address [address] [place], [place] [address] Care Team Providers Care Hearing Aid Mechanic Name Role Phone [place] Giraldo MD Unavailable [phone] Social History Tobacco Use Types Packs/Day Years Used Date Smoking Tobacco: Never Assessed Comments Unknown Sex and Gender Information Value Date Recorded Sex Assigned at Not on file Legal Sex Female 3:47 PM EDT Gender Identity Not on file Sexual Orientation Not on file Plan of Treatment Health Maintenance Due Date Last Done Comments Anxiety Screening 2015 Depression Screening 2015 HIV Screening 2015 Hepatitis C Screening 2015 DTaP,Tdap,Td Vaccine (1 - Tdap) 2016 Hepatitis B Vaccine (1 of 3 - 19+ 3-dose series) 05/06 Cervical Cancer Screening 2018 Covid-19 Vaccine ( season) 03/19/202408/2020 Influenza Vaccine (Season Ended) 2025 Insurance [employer] PREFERRED PPO [employer] Care Teams Hearing Aid Mechanic Relationship Specialty Start Date End Date [place] Giraldo MD [address] [facility] [place] [address] Referring Family Medicine 08/29/24
--- OUTSIDE RECORDS SUMMARY | 2025-01-01 14:48 | XMS_ITS | Encounter Summary ---
Author Organization [facility] Address [address] [place] [address] Care Team Providers Care Grader Marker Name Role Phone Erin Whiteside RN Primary Care Provider Unavaila Rodney Morrell MD Unavailable Archie Hugo MD, PhD Unavailable Unavailable Cheikh Coelho MD Unavailable [phone] Erin Whiteside S ONLINE CONTENT DEVELOPER Primary Care Provider + Lavern Paul MD, MPH Unavailable [phone] [place] Ruano DO Unavailable [phone] Dolores Johnson RUNNER MAN-ONLINE CONTENT DEVELOPER Unavailable [phone] Vinicius Gomes MD, PhD Unavailable [phone] Diego Apodaca MD Unavailable [phone] [place] Apodaca MD Unavailable [phone] Reason for Visit * Reason Onset Date Comments Medication Problem 05/21/2022 Encounter Details Date Type Department Care Team (Late st Contact Info) Description 05/21/2022 Telephone Division of Surgical Oncology [address] [place] 10th [place] [address] Archie Hugo MD, PhD Medication Problem Social History Tobacco Use Types Packs/Day Years [...] Orientation Straight 09/11/2024 9: 47 AM EST COVID-19 Exposure Response Date Recorded In the last 10 days, have yo u been in contact with someone who was confirmed or suspected to have Coronavirus/COVID-19? No / Unsure 05/22/2022 3:45 PM EDT documented as of this encounter Miscellaneous Notes * Telephone Encounter - Andie Haq RN - 05/21/2022 6:25 PM EDT Please see Triage encounter for today, 05/21/22 as well. Paged negotiations director Resident for patient as well. * Telephone Encounter - Lianet Carcamo - 05/21/2022 2:23 PM EDT Pt states she is experiencing problems with bowel prep and has questions. Requesting call back on [phone]. Thanks! documented in this encounter Plan of Treatment Upcoming Encounters Date Type Department Care Team (Late st Contact Info) Description 01/22/2025 9:30 AM EDT Clinical Support Encounter Clinical Lab [facility] [facility] [place] [address] Christopher Moralez RUNNER MAN-ONLINE CONTENT DEVELOPER 2049 [place] [address] 01/22/2025 10:45 AM EDT Appointment Imaging at The [facility] Care [address] [facility] 2nd [place] [phone] Christopher Moralez RUNNER MAN-ONLINE CONTENT DEVELOPER [address] [place], [place] [phone] 01/29/2025 12:00 PM EDT Office Visit Division of Medical Oncology [address] [facility] 10th [place] [address] Christopher Moralez RUNNER MAN-ONLINE CONTENT DEVELOPER [address] [place], [place] [phone] documented as of this encounter Visit Diagnoses Not on filedocumented in this encounter Care Teams Grader Marker Relationship Specialty Start Date End Date Erin Whiteside, RN PCP - General 03/19/22 03/09/23 Erin Whiteside, ONLINE CONTENT DEVELOPER [address] [facility] [place] [address] PCP - General 03/10/23 Rodney Olivas MD Hematology 03/19/22 Archie Hugo MD, PhD Surgeon Surgical Oncology 07/08/22 02/10/24 Cehikh Coelho MD [address] 5TH [place] [address] Hooker Operator Cardiovascular Disease 10/07/22 Lavern Paul MD, MPH [address] [facility] 10th [place] [address] Oncologist Medical Oncology 03/31/23 [place] Ruano DO [address] [facility] 1 [place] [address] Obstetrics & Gynecology 04/06/23 Dolores Johnson APRN-ONLINE CONTENT DEVELOPER [address] [place] [address] Caretaker Grounds Certified Nurse Practitioner 02/10/24 Vinicius Gomes MD, PhD [address] [facility] 8th [place] [address] Oncologist Medical Oncology 02/10/24 Diego Apodaca MD [address] [place] [address] 8[address] [place] [address] Caretaker Grounds Internal Medicine 02/11/24 02/15/24 Diego Apodaca MD [address] [place] [address] Gastroenterology 02/16/24 documented as of this encounter
--- OUTSIDE RECORDS SUMMARY | 2025-01-01 14:48 | XMS_ITS | Encounter Summary ---
Author Organization [facility] Address [address] [place] [address] Care Team Providers Care Ship Harbor Pilot Name Role Phone [place] Giraldo MD Unavailable [phone] Source Comments In the event this information is protected by the Federal Confidentiality of Alcohol and Drug AbusePatient Records regulations: The Federal rules restrict any use of the information to criminally investigate or prosecute any alcohol or drug abuse patient.[facility] Encounter Details Date Type Department Care Team (Late st Contact Info) Description 08/30/2024 [place] [address] Provider, [facility] Finanical Clearance Denied Social History Tobacco Use Types Packs/Day Years Used Date Smoking Tobacco: Never Assessed Comments Unknown Sex and Gender Information Value Date Recorded Sex Assigned at Not on file Legal Sex Female 3:47 PM EDT Gender Identity Not on file Sexual Orientation Not on file documented as of this encounter Plan of Treatment Not on file documented as of this encounter Visit Diagnoses Not on filedocumented in this encounter Care Teams Ship Harbor Pilot Relationship Specialty Start Date End Date [place] Giraldo MD [address] [place] [address] Referring Family Medicine 2/11/25 documented as of this encounter
--- OUTSIDE RECORDS SUMMARY | 2025-01-01 14:48 | XMS_ITS | Clinical Summary ---
Author Organization [employer] [facility] Address [id number] [address] [place] [address] Care Team Providers Care Manager Programming Name Role Phone Erin Whiteside APRN-HORSE SHOER Primary Care Provider Allergies Active Allergy Reactions Criticality Noted Date Comments Gabapentin Diarrhea,GI Disturbance 10/07/2022 Metronidazole GI Disturbance 11/26/2023 Medications FLUoxetine (PROzac) 20 MG tablet Take 1 tablet (20 mg total) by mouth in the morning and 1 tablet (20 mg total) before bedtime. 2 Active ondansetron (ZOFRAN) 8 mg tablet Take 1 tablet (8 mg total) by mouth daily as needed for nausea or vomiting. 3 Active colestipoL (COLESTID) 1 g tablet Take 1 tablet (1 g total) by mouth every other day. TAKE 2 TABLETS BY MOUTH TWICE A DAY WITH A FULL GLASS OF WATER, per patient every other day 4 Active lamoTRIgine (LaMICtal) 25 mg tablet Take 1 tablet (25 mg total) by mouth in the morning. Active octreotide,micr ospheres (SandoSTATIN LAR Depot) 20 mg injection Inject 20 mg into the appropriate muscle Once every four weeks. 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 Family History Medical History Relation Name Comments Asthma Father Jero Kidney disease Father Jero Breast cancer Maternal Aunt Heather Diabetes Mother Kavitha Bird Hypertension Mother Kavitha Bird Relation Name Status Comments Father Jero Alive Maternal Aunt Heather Alive Mother Kavitha Bird Alive Social History Tobacco Use Types Packs/Day Years Used Date Smoking Tobacco: Never Smokeless Tobacco: Never Tobacco Cessation:Counseling Given: Not Answered Alcohol Use Standard Drinks/Week Comments Not Currently 0 (1 standard drink = 0.6 oz pur e alcohol) Social Connection and Isolation Panel [NHANES] A nswer Date Recorded In a typical week, how many times do you talk on the phone with family, friends, or neighbors? Twice a week 02/18/2022 How often do you get togethe r with friends or relatives? Patient declined 02/18/2022 How often do you attend baptist or bahai serv ices? Never 02/18/2022 Do you belong to any clubs o r organizations such as baptist groups, unions, fraternal or athletic groups, or school groups? No 02/18/2022 How often do you attend meet ings of the clubs or organizations you belong to? Patient declined 02/18/2022 Are you , , di vorced, , never , or living with a partner? 02/18/2022 AUDIT-C Answer Date Recorded Q1: How often do you have a drink containing alcohol? Never 02/18/2022 Q2: How many drinks containi ng alcohol do you have on a typical day when you are drinking? Patient does not drink Q3: How often do you have si x or more drinks on one occasion? Never 02/18/2022 Overall Financial Resource Strain (CARDIA) Answe r Date Recorded How hard is it for you to pa y for the very basics like food, housing, medical care, and heating? Somewhat hard 02/18/2022 PHQ-2 Answer Date Recorded Total Score 16 02/18/2022 [facility] [place] of Occupat ional Health - Occupational Stress Questionnaire Answer Date Recorded Do you feel stress - tense, restless, nervous, or anxious, or unable to sleep at night because your mind is troubled all the time - these days? Very much 02/18/2022 Exercise Vital Sign Answer Date Recorde d On average, how many days pe r week do you engage in moderate to strenuous exercise (like a brisk walk)? 3 days 02/18/2022 On average, how many minutes do you engage in exercise at this level? 40 min 02/18/2022 PRAPARE - Transportation Answer Date Re corded In the past 12 months, has l ack of transportation kept you from medical appointments or from getting medications? No 09/2021 In the past 12 months, has l ack of transportation kept you from meetings, work, or from getting things needed for daily living? No 02/18/2022 Childcare Answer Date Recorded Do problems getting child ca re make it difficult for you to work or study? No 02/18/2022 Employment Answer Date Recorded Do you need help finding a [employer] career center and/or a training program? No 02/18/2022 Hunger Screening Answer Date Recorded Within the past 12 months we worried whether our food would run out before we got money to buy more. Never True 04/13/2024 Food Insecurity - Inability Not on file 03/20 Purpose - Life Answer Date Recorded I have a purpose and direction in my life. Somew hat Disagree 02/18/2022 Education Answer Date Recorded What is the highest level of school you have completed or the highest degree you have received? Some college, no degree 02/18/2022 Comments No Sex and Gender Information Value Date Recorded Sex Assigned at Not on file Legal Sex Female 8:33 AM EDT Gender Identity Not on file Sexual Orientation Not on file Last Filed Vital Signs Vital Sign Reading Time Taken Comments Blood Pressure 141/60 04/13/2024 10:24 AM EDT Pulse 79 04/13/2024 10:24 AM EDT Temperature 36 C (96.8 F) 06/18/2023 10:08 AM EST Respiratory Rate 20 06/18/2023 11:23 AM EST Oxygen Saturation 96% 06/18/2023 11:23 AM EST Inhaled Oxygen Concentration - - Weight 71.2 kg (157 lb) 04/13/2024 10:24 AM EDT Height 154.9 cm (5' 1 ) 04/13/2024 10:24 AM EDT Body Mass Index 29.66 04/13/2024 10:24 AM EDT Plan of Treatment Health Maintenance Due Date Last Done Comments Adult BMI Follow Up Plan 2015 Pap Smear 2018 DTaP,Tdap and Td Vaccines (6 - Td or Tdap) 08/14/2020 08/14/2010, 04/03/2002, 09/20/2000, Additional history exists Depression Screening 02/18/2023 02/18/2022 COVID-19 Vaccine (4 - 2023-2 5 season) 2024 06/19/2021, 08/28/2020, 07/31/2020 Influenza Vaccine 03/19/2025 04/28/2021 Adult BMI Screening 04/13/2025 04/13/2024 Tobacco Screening 04/14/2025 04/14/2024 Medical Devices Not on file Insurance RT [address] [place] [id number] [employer] Care Teams Manager Programming Relationship Specialty Start Date End Date Erin Whiteside, PERFORMANCE MAKEUP ARTIST-HORSE SHOER [address] [facility], [place] [address] PCP - General Family Medicine 02/11/22
--- OUTSIDE RECORDS SUMMARY | 2025-01-01 14:48 | XMS_ITS | Encounter Summary ---
Author Organization [facility] enter Address [address] [place] [address] Care Team Providers Care Executive Director Of Nursing Name Role Phone Rodney Olivas MD Unavailable Cheikh Coelho MD Unavailable [phone] Erin Whiteside TINSMITH HELPER Primary Care Provider + Lavern Paul MD, MPH Unavailable [phone] Ron Ruano DO Unavailable [phone] Dolores Johnson COLLECTION TELLER-TINSMITH HELPER Unavailable [phone] Vinicius Gomes MD, PhD Unavailable [phone] Diego Apodaca MD Unavailable [phone] Encounter Details Date Type Department Care Team (Late st Contact Info) Description 12/28/2024 Medication Management [facility] [address] 12th [place] [address] Roge Yanes MD [address] [place] [address] Social History Tobacco Use Types Packs/Day Years [...] Francia Chamberlain RN documented in this encounter Progress Notes * Roge Yanes MD - 12/28/2024 2:40 PM EDT Given the complex medical history with neuroendocrine tumor, we will proceed with CGRP Receptor antagonist for acute migraine treatment. Previously she didn't tolerate triptans which made her headache much worse. Ordered nurtec 75mg, one tablet as needed per day. Dispense 8 tablet per month. Dont use more than one tablet within 24 hours. Start prior-authorization. She is on Emgality monthly for prevention with good response. She also has MRI brain and MRV brain pending for completion. If her headache improved with treatments, given the initial normal exam, we may consider to hold off further testing. Updated the patient via POS on [employer]. Roge Yanes MD, PhD documented in this encounter Plan of Treatment Upcoming Encounters Date Type Department Care Team (Late st Contact Info) Description 01/22/2025 9:30 AM EDT Clinical Support Encounter Clinical Lab [place] [address] [facility] 1st [place] [address] Christopher Moralez, COLLECTION TELLER-TINSMITH HELPER [address] [place] [address] 01/22/2025 10:45 AM EDT Appointment Imaging at The [facility] [address] [facility] 2nd [place] [address] Christopher Moralez COLLECTION TELLER-TINSMITH HELPER [address] [place] [phone] 01/29/2025 12:00 PM EDT Office Visit Division of Medical Oncology [address] [facility] 10th [place] [address] Christopher Moralez COLLECTION TELLER-TINSMITH HELPER [address] [place] [phone] documented as of this encounter Visit Diagnoses Not on filedocumented in this encounter Additional Health Concerns Assessment Noted Time PHQ-9 Depression Total Score: 9 09/29/19 25 11:41 AM EDT documented as of this encounter Care Teams Executive Director Of Nursing Relationship Specialty Start Date End Date Erin Whiteside CNP [address] [place] [address] PCP - General 03/10/23 Rodney Olivas MD Hematology 03/19/22 Cheikh Coelho MD [address] [place] [address] Property Management Specialist Cardiovascular Disease 10/07/22 Lavern Paul MD, MPH [address] [place] [address] [place] [address] Oncologist Medical Oncology 03/31/23 [place] Ruano DO [address] [facility] 1 [place] [address] Obstetrics & Gynecology 04/06/23 Dolores Johnson, COLLECTION TELLER-TINSMITH HELPER [address] [facility] 1 [place] [address] Sales And Distribution Clerk Certified Nurse Practitioner 02/10/24 Vinicius Gomes MD, PhD [address] [place] [address]th [place] [address] Oncologist Medical Oncology 02/10/24 Diego Apodaca MD [address] [place] [address] [address] [place] [address] Gastroenterology 02/16/24 documented as of this encounter
--- OUTSIDE RECORDS SUMMARY | 2025-01-01 14:49 | XMS_ITS | Encounter Summary ---
Author Organization [facility] enter Address [address] [place] [address] Care Team Providers Care System Support Specialist Name Role Phone Erin Whiteside RN Primary Care Provider Unavaila Rodney Morrell MD Unavailable Archie Hugo MD, PhD Unavailable Unavailable Cheikh Coelho MD Unavailable [phone] Erin Whiteside S HYDROMETEOROLOGICAL TECHNICIAN Primary Care Provider + Lavern Paul MD, MPH Unavailable [phone] Ron Ruano DO Unavailable [phone] Dolores Johnson REEL FED PRINTER-HYDROMETEOROLOGICAL TECHNICIAN Unavailable [phone] Vinicius Gomes MD, PhD Unavailable [phone] Diego Apodaca MD Unavailable [phone] Diego Apodaca MD Unavailable [phone] Reason for Visit * Reason Onset Date Comments Paperwork 06/01/2022 Encounter Details Date Type Department Care Team (Late st Contact Info) Description 06/01/2022 Telephone Division of Medical Oncology [address] [facility] 8[facility] [place] [address] Archie Hugo MD, PhD Paperwork Social History Tobacco Use Types Packs/Day Years [...] PM EDT documented as of this encounter Functional Status [...] Telephone Encounter - Nicole Mays RN - 06/03/2022 11:11 AM EST Letter typed and emailed to pt as requested now. Nicole Mays RN * Telephone Encounter - Nicole Mays RN - 06/03/2022 10:20 AM EST Spoke to pt regarding RTW letter. 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 So I am going to start at 4 weeks and she will update us around then and if feeling well and ready to go back we can release then to RTW ? Does that sound good? Per HYDROMETEOROLOGICAL TECHNICIAN OK to write letter as noted above. Nicole Mays RN * Telephone Encounter - Yovany Greene - 06/01/2022 8:25 AM EST Asking for a doctor's excuse for the surgery 05/22 to be emailed to her. [email or web address] Today if possible. documented in this encounter Plan of Treatment Upcoming Encounters Date Type Department Care Team (Late st Contact Info) Description 01/22/2025 9:30 AM EDT Clinical Support Encounter Clinical Lab [facility] [facility] [place] [address] Christopher Moralez APRN-CNP [address] [place] [address] 01/22/2025 10:45 AM EDT Appointment Imaging at [facility] Care [address] 2nd [facility] [address] Christopher Moralez APRN-CNP [address] [place], [place] [id number] 01/29/2025 12:00 PM EDT Office Visit Division of Medical Oncology [address] [facility] 10th [place] [address] Christopher Moralez APRN-CNP [address] [place], [place] [id number] documented as of this encounter Visit Diagnoses Not on filedocumented in this encounter Care Teams System Support Specialist Relationship Specialty Start Date End Date Erin Whiteside, RN PCP - General 03/19/22 03/09/23 Erin Whiteside, HYDROMETEOROLOGICAL TECHNICIAN [address] [facility] [address] PCP - General 03/10/23 Rodney Olivas MD Hematology 03/19/22 Archie Hugo MD, PhD Surgeon Surgical Oncology 07/08/22 02/10/24 Cheikh Coelho MD [address] [place] [address] Sdc Teacher Cardiovascular Disease 10/07/22 Lavern Paul MD, MPH [facility] [facility] 10th [place] [address] Oncologist Medical Oncology 03/31/23 Ron Ruano DO [address] [facility] [address] [place] [address] Obstetrics & Gynecology 04/06/23 Dolores Johnson, REEL FED PRINTER-HYDROMETEOROLOGICAL TECHNICIAN [address] [place] [address] Quality Internship Certified Nurse Practitioner 02/10/24 Vinicius Gomes MD, PhD [facility] [facility] 8th [place] [address] Oncologist Medical Oncology 02/10/24 Diego Apodaca MD [address] [place] [address] 8[address] [place] [address] Quality Internship Internal Medicine 02/11/24 02/15/24 Diego Apodaca MD [address] [place] [address] Gastroenterology 02/16/24 documented as of this encounter
--- OUTSIDE RECORDS SUMMARY | 2025-01-01 14:49 | XMS_ITS | Encounter Summary ---
Author Organization [facility] enter Address [address] [place] [address] Care Team Providers Care Neighborhood Service Center Director Name Role Phone Erin Whiteside RN Primary Care Provider Unavaila Rodney Morrell MD Unavailable Archie Hugo MD, PhD Unavailable Unavailable Cheikh Coelho MD Unavailable [phone] Erin Whiteside S SCRUB TECHNICIAN Primary Care Provider + Lavern Paul MD, MPH Unavailable [phone] Ron Ruano DO Unavailable [phone] Dolores Johnson ACTIVITIES AIDE-SCRUB TECHNICIAN Unavailable [phone] Vinicius Gomes MD, PhD Unavailable [phone] Diego Apodaca MD Unavailable [phone] Diego Apodaca MD Unavailable [phone] Encounter Details Date Type Department Care Team (Late st Contact Info) Description 10/13/2022 Telephone Division of Surgical Oncology [address] [place] 4th [place] [address] Leigh Pompa RN Social History Tobacco Use Types Packs/Day Years [...] depression; 15-19 = Moderately severe depression) 0 10/07/2022 Comments Unknown Sex and Gender Information Value [...] encounter Miscellaneous Notes * Telephone Encounter - Leigh Pompa RN - 10/13/2022 4:23 PM EDT Clinic prep complete for Dr. Nimo mason for 10/19/22. Completed on 10/13/2022. documented in this encounter Plan of Treatment Upcoming Encounters Date Type Department Care Team (Late st Contact Info) Description 01/22/2025 9:30 AM EDT Clinical Support Encounter Clinical Lab Branden Kang [address] [place] 1st [place] [address] Christopher Moralez, ACTIVITIES AIDE-SCRUB TECHNICIAN [address] [place] [address] 01/22/2025 10:45 AM EDT Appointment Imaging at [facility] [address] 2nd [place] [phone] Christopher Moralez, ACTIVITIES AIDE-SCRUB TECHNICIAN [address] [place] [address] 01/29/2025 12:00 PM EDT Office Visit Division of Medical Oncology [address] [facility] 10th [place] [phone] Christopher Moralez, ACTIVITIES AIDE-SCRUB TECHNICIAN [address] [place], [place] [phone] documented as of this encounter Visit Diagnoses Not on filedocumented in this encounter Additional Health Concerns Assessment Noted Time PHQ-9 Depression Total Score: 0 10/08/19 11:26 AM EDT documented as of this encounter Care Teams Neighborhood Service Center Director Relationship Specialty Start Date End Date Erin Whiteside RN PCP - General 03/19/22 03/09/23 Erin Whiteside, SCRUB TECHNICIAN [address] [place] [address] PCP - General 03/10/23 Rodney Olivas MD Hematology 03/19/22 Archie Hugo MD, PhD Surgeon Surgical Oncology 07/08/22 02/10/24 Cheikh Coelho MD [address] [place] [address] Security Alarm Technician Cardiovascular Disease 10/07/22 Lavern Paul MD, MPH [address] [place] [place] 10th [place] [address] Oncologist Medical Oncology 03/31/23 Ron Ruano DO [address] [facility] 1 [place] [address] Obstetrics & Gynecology 04/06/23 Dolores Johnson, ACTIVITIES AIDE-SCRUB TECHNICIAN [address] [facility] 1 [place] [address] [email or web address] Android Developer Certified Nurse Practitioner 02/10/24 Vinicius Gomes MD, PhD [address] [place] [place] 8th [place] [address] Oncologist Medical Oncology 02/10/24 Diego Apodaca MD [address] [place] 8th [place] [address] [email or web address] Android Developer Internal Medicine 02/11/24 02/15/24 Diego Apodaca MD [address] [place] [address] Gastroenterology 02/16/24 documented as of this encounter
--- OUTSIDE RECORDS SUMMARY | 2025-01-01 14:49 | XMS_ITS | Encounter Summary ---
Author Organization [employer] Address [id number] [address] [place] [address] Care Team Providers Care Profiler Name Role Phone Erin Whiteside APRN-LOAN SERVICE OFFICER Primary Care Provider Encounter Details Date Type Department Care Team (Late st Contact Info) Description 06/21/2023 [facility] [address] [place] [address] Iris Medel CMA Social History Tobacco Use Types Packs/Day Years [...] declined 02/18/2022 How often do you attend restorationism or oriental orthodox serv ices? Never 02/18/2022 Do you belong to any clubs o r organizations such as restorationism groups, unions, fraternal or athletic groups, or [...] Answer Date Recorded Total Score 16 02/18/2022 [facility] - Occupational Stress Questionnaire Answer [...] Recorded Do you need help finding a [facility] career center and/or a training program? No 02/18/2022 Hunger Screening Answer Date Recorded Within the past 12 months we worried whether our food would run out before we got money to buy more. Never True 06/09/2023 Within the past 12 months th e food we bought just didn't last and we didn't have money to get more. Never True 06/09/2023 Purpose - Life Answer Date Recorded I have a purpose and direction in my life. Somew hat Disagree 02/18/2022 Education Answer Date Recorded What is the highest level of school you have completed or the highest degree you have received? Some college, no degree 02/18/2022 Comments Yes Sex and Gender Information Value Date Recorded Sex Assigned at Not on file Legal Sex Female 8:33 AM EDT Gender Identity Not on file Sexual Orientation Not on file documented as of this encounter Miscellaneous Notes * Telephone Encounter - Iris Medel CMA - 06/21/2023 8:35 AM EST Patient is 24 weeks . She has some concerns about the surgery that happened on 06-18-2023. She said that they discussed going up a little higher towards the sternum on the rib cage and they are lower she wants to know why, and if that is going to harm the baby. Her other question is she hasan incision that is indented and and sunken in and she doesn't know if that is ok.She did not get to talk to the surgeon after so she is curious. Please advise. * Telephone Encounter - Iris Medel CMA - 06/21/2023 8:35 AM EST The doctor called the patient personally and spoke to her. documented in this encounter Plan of Treatment Not on file documented as of this encounter Visit Diagnoses Not on filedocumented in this encounter Additional Health Concerns Assessment Noted Time PHQ-9 Depression Total Score: 16 022 5:41 PM EDT documented as of this encounter Care Teams Profiler Relationship Specialty Start Date End Date Erin Whiteside, STORE GROCERY MERCHANDISER-LOAN SERVICE OFFICER [address] [place] [address] PCP - General Family Medicine 02/11/22 documented as of this encounter
--- OUTSIDE RECORDS SUMMARY | 2025-01-01 14:49 | XMS_ITS | Encounter Summary ---
Author Organization [facility] [employer] [facility] tem Address [id number] [address] [place] [address] Care Team Providers Care Tip Mender Name Role Phone Erin Whiteside APRN-LATENT FINGERPRINT EXAMINER Primary Care Provider Encounter Details Date Type Department Care Team (Late st Contact Info) Description 04/14/2023 Abstract Maternal- Medicine at [facility] [address] [place] [address] Janna Deleon MD [address] [facility] [place], [address] [place] [address] Social History Tobacco Use Types Packs/Day Years [...] declined 02/18/2022 How often do you attend sabianist or moravian serv ices? Never 02/18/2022 Do you belong to any clubs o r organizations such as sabianist groups, unions, fraternal or athletic groups, or [...] Answer Date Recorded Total Score 16 02/18/2022 [facility] [place] of Occupat ional Health - Occupational Stress [...] Recorded Do you need help finding a l ocal career center and/or a training program? No 02/18/2022 Purpose - Life Answer Date Recorded I [...] on file documented as of this encounter Procedures Procedure Name Priority Date/Time Associated Diagnosis Comments HIV 1&2 AB/AG SCREEN (P24 AG) Routine 03/13/2023 RUBELLA IGG IMMUNE STATUS Routine 03/13/2023 SYPHILIS TOTAL(UNKNOWN SYPHILIS STATUS) Routine 03/13/2023 HEPATITIS C(HCV) ANTIBODY W/REFLEX TO PCR Routine 03/13/2023 HEPATITIS B SURFACE ANTIGEN Routine 03/13/2023 CBC (NO DIFF) Routine 03/13/2023 TYPE AND SCREEN Routine 03/13/2023 HEMOGLOBIN A1C Routine 03/13/2023 documented in this encounter Results * Hemoglobin A1c (03/13/2023) Hemoglobin A1C 5.3 4.0 - 6.0 % MANUALLY TRANSCRIBED RESULTS us Ron R Alden DO LAB BLOOD ORDERABLES Final Resu lt Performing Organization Address City/[facility] Co de Phone Number MANUALLY TRANSCRIBED RESULTS * Hepatitis B surface antigen (03/13/2023) Hepatitis B Surface Antigen negative MANUALLY TRANSCRIBED RESULTS us Ron R Alden DO LAB BLOOD ORDERABLES Final Resu lt MANUALLY TRANSCRIBED RESULTS * Hepatitis C(HCV) Ab w/ Reflex to PCR (03/13/2023) Hepatitis C Antibody non reactive MANUALLY TRANSCRIBED RESULTS us Ron R Alden DO LAB BLOOD ORDERABLES Final Resu lt Performing Organization Address City/[facility]/ZIP Co de Phone Number MANUALLY TRANSCRIBED RESULTS * CBC without diff (03/13/2023) Hemoglobin 11.3 MANUALLY TRANSCRIBED RESULTS Hematocrit 35.4 MANUALLY TRANSCRIBED RESULTS Rbc Mcv (Fl) By Automated Count 82.7 MANUALLY TRANSCRIBED RESULTS Platelets 341 MANUALLY TRANSCRIBED RESULTS us Ron R Alden DO LAB BLOOD ORDERABLES Final Resu lt Performing Organization Address City/[facility]/ZIP Co de Phone Number MANUALLY TRANSCRIBED RESULTS * HIV 1&2 AB/AG Screen (P24 AG) (03/13/2023) HIV 1&2 AB/AG non reactive MAN UALLY TRANSCRIBED RESULTS us Ron R Alden DO LAB BLOOD ORDERABLES Final Resu lt Performing Organization Address City/[facility]/ZIP Co de Phone Number MANUALLY TRANSCRIBED RESULTS * Type and screen (03/13/2023) Abo/Rh(D) A Positive MANUALLY TRANSCRIBED RESULTS Antibody Screen Negative MANUALLY TRANSCRIBED RESULTS us Ron R Alden DO BLOOD BANK TEST ORDERABLES Coco l Result Performing Organization Address [facility] Co de Phone Number MANUALLY TRANSCRIBED RESULTS * Rubella IGG immune status (03/13/2023) Rubella immune IgG 2.03 MANUALLY TRANSCRIBED RESULTS us Ron R Alden DO LAB BLOOD ORDERABLES Final Resu lt Performing Organization Address City/[facility] Co de Phone Number MANUALLY TRANSCRIBED RESULTS * Syphilis Total(Unknown Syphilis Status) (03/13/2023) Syphilis nonreactive MANUALLY TRANSCRIBED RESULTS us Ron R Alden DO LAB BLOOD ORDERABLES Final Resu lt Performing Organization Address [facility] Co de Phone Number MANUALLY TRANSCRIBED RESULTS documented in this encounter Visit Diagnoses Not on filedocumented in this encounter Additional Health Concerns Assessment Noted Time PHQ-9 Depression Total Score: 16 022 5:41 PM EDT documented as of this encounter Care Teams Tip Mender Relationship Specialty Start Date End Date Erin Whiteside, RN NIGHT-LATENT FINGERPRINT EXAMINER [address] [facility] [place] [address] PCP - General Family Medicine 02/11/22 documented as of this encounter
--- OUTSIDE RECORDS SUMMARY | 2025-01-01 14:49 | XMS_ITS | Encounter Summary ---
Author Organization [facility] enter Address [address] [place] [address] Care Team Providers Care Cell Support Operator Name Role Phone Erin Whiteside RN Primary Care Provider Unavaila Rodney Morrell MD Unavailable Archie Hugo MD, PhD Unavailable Unavailable Cheikh Coelho MD Unavailable [phone] Erin Whiteside S MEDICAL APPLIANCE MAKER Primary Care Provider + Lavern Paul MD, MPH Unavailable [phone] Ron Ruano DO Unavailable [phone] Dolores Johnson TOOL ROOM MACHINIST-MEDICAL APPLIANCE MAKER Unavailable [phone] Vinicius Gomes MD, PhD Unavailable [phone] Diego Apodaca MD Unavailable [phone] Diego Apodaca MD Unavailable [phone] Reason for Visit * Reason Onset Date Comments Lab Review 08/24/2022 Encounter Details Date Type Department Care Team (Late st Contact Info) Description 08/24/2022 Telephone Division of Medical Oncology [address] [place] [address]th [place] [address] Johana Lutz, program checker Review Social History Tobacco Use Types Packs/Day Years [...] Moderate depression; 15-19 = Moderately severe depression) 8 08/26/2022 Comments Unknown Sex and Gender Information Value Date Recorded Sex Assigned at Not on file Legal Sex Female 8:46 AM EDT Gender Identity Female 09/11/2024 9:47 AM EST Sexual Orientation Straight 09/11/2024 9: 47 AM EST COVID-19 Exposure Response Date Recorded In the last 10 days, have yo u been in contact with someone who was confirmed or suspected to have Coronavirus/COVID-19? Unable to assess 08/26/2022 6:58 AM EST documented as of this encounter [...] Entry Date Author No 05/22/2022 3:44 PM Francia Goodwin RN documented in this encounter Miscellaneous Notes * Telephone Encounter - Yina Amaya RN - 08/27/2022 12:05 PM EST Pt seen yesterday in clinic via video. Plan for local labs in near future * Telephone Encounter - Yina Amyaa RN - 08/25/2022 1:32 PM EST hdtMEDIA message sent to pt asking about labs * Telephone Encounter - Johana Lutz RN - 08/24/2022 8:57 AM EST ----- Message from Yina Amaya RN sent at 07/08/2022 10:23 AM EST ----- Regarding: labs Pt scheduled for return video visit on 08/26/[address] Paul. Pt instructed to have labs locally 2 days prior. Please ensure labs are received and reviewed documented in this encounter Plan of Treatment Upcoming Encounters Date Type Department Care Team (Late st Contact Info) Description 01/22/2025 9:30 AM EDT Clinical Support Encounter Clinical Lab Branden [place] [address] [place] [address] [place] [address] Christopher Moralez APRN-MEDICAL APPLIANCE MAKER [address] [place] [address] 01/22/2025 10:45 AM EDT Appointment Imaging at [facility] [address] [place] [address] Christopher Moralez TOOL ROOM MACHINIST-MEDICAL APPLIANCE MAKER [address] [place] [address] 01/29/2025 12:00 PM EDT Office Visit Division of Medical Oncology [address] [place] [address] [place] [address] Christopher Moralez APRN-MEDICAL APPLIANCE MAKER [address] [place] [address] documented as of this encounter Visit Diagnoses Not on filedocumented in this encounter Additional Health Concerns Assessment Noted Time PHQ-9 Depression Total Score: 2 07/08/20 22 8:02 AM EST documented as of this encounter Care Teams Cell Support Operator Relationship Specialty Start Date End Date Erin Whiteside, RN PCP - General 03/19/22 03/09/23 Erin Whiteside, MEDICAL APPLIANCE MAKER [address] [facility] [place] [address] PCP - General 03/10/23 Rodney Olivas MD Hematology 03/19/22 Archie Hugo MD, PhD Surgeon Surgical Oncology 07/08/22 02/10/24 Cheikh Coelho MD [address] [place] [address] Chief Of Party Cardiovascular Disease 10/07/22 Lavern Paul MD, MPH [address] [place] 10th [place] [address] Oncologist Medical Oncology 03/31/23 Ron Ruano DO [address] [facility] [address] [place] [address] Obstetrics & Gynecology 04/06/23 Dolores Johnson APRN-MEDICAL APPLIANCE MAKER [address] [facility] [address] [place] [address] Engineer Remote Control Diesel Certified Nurse Practitioner 02/10/24 Vinicius Gomes MD, PhD [address] [place] 8th [place] [address] Oncologist Medical Oncology 02/10/24 [place] [address] [place] [address] 8th [place] [address] Engineer Remote Control Diesel Internal Medicine 02/11/24 02/15/24 Diego Apodaca MD [address] [place] [address] Gastroenterology 02/16/24 documented as of this encounter
--- OUTSIDE RECORDS SUMMARY | 2025-01-01 14:49 | XMS_ITS | Encounter Summary ---
Author Organization [facility] [employer] [facility] tem Address [id number] [address] [place] [address] Care Team Providers Care Offset Press Assistant Name Role Phone Stevo Erin Persaud APRN-MEDICAL SERVICES ASSISTANT Primary Care Provider Encounter Details Date Type Department Care Team (Late st Contact Info) Description 04/14/2023 Orders Only Maternal- Medicine at [facility] [address] [place] [address] Ref Prov, [place] [address] Social History Tobacco Use Types Packs/Day Years [...] declined 02/18/2022 How often do you attend oriental orthodox or yazidism serv ices? Never 02/18/2022 Do you belong to any clubs o r organizations such as oriental orthodox groups, unions, fraternal or athletic groups, or [...] Answer Date Recorded Total Score 16 02/18/2022 [facility] of Occupat ional Health - Occupational Stress [...] Recorded Do you need help finding a [facility] career center and/or a training program? [...] Procedure Name Priority Date/Time Associated Diagnosis Comments US PREG LMTD 1 OR MORE FETUS Routine 04/14/2023 3:50 PM EDT UNLISTED GENETIC TEST Routine 04/14/2023 3:32 PM EDT documented in this encounter Results * Ultrasound limited 1 or more fetus (04/14/2023 3:50 PM EDT) Anatomical Region Laterality Modality OB-EDITOR DEPARTMENT Ultrasound us Not In System Ref Prov IMG US ORDERABLES Final R esult * Unlisted Genetic Test (04/14/2023 3:32 PM EDT) us Not In System Ref Prov LAB BLOOD ORDERABLES Coco l Result MANUALLY TRANSCRIBED RESULTS documented in this encounter Visit Diagnoses Not on filedocumented in this encounter Additional Health Concerns Assessment Noted Time PHQ-9 Depression Total Score: 16 08/ 022 5:41 PM EDT documented as of this encounter Care Teams Offset Press Assistant Relationship Specialty Start Date End Date Erin Whiteside, VEGETABLE II FARMWORKER-MEDICAL SERVICES ASSISTANT [address] [place] [address] PCP - General Family Medicine 02/11/22 documented as of this encounter
== END 2025-01-01 14:47 | disposition home or self-care (01) ==
LOC: MRI 14:46
PROVIDERS: PCP Nurse Practitioner Family; Visit Provider Pathology Anatomic Pathology & Clinical Pathology
DX: G43.709 Chronic migraine without aura, not intractable, without status migrainosus (principal)
CPT/HCPCS: 70544; 70553; A9575

== ENCOUNTER 2025-02-15 09:07 | Outpatient (OUT) | payer OTHER, SELFPAY ==
--- OUTSIDE RECORDS SUMMARY | 2024-11-02 06:15 | XMS_ITS ---
Author Organization The [facility] [place] Address [address] [place] [address] Care Team Providers Care Supervisor Belt And Link Assembly Name Role Phone Stevo Erin Primary Care Provider Allergies Allergen (clinical drug ingredient) Drug/Non Drug Allergy documented on EMR Reaction Allergy Type Onset Date Status metronidazole Flagyl nausea and vomiting Drug Allergy Active gabapentin Gabapentin nausea, diarrhea Drug Allergy Active Results Component Value Reference Range Notes UA DIP NONAUTO WO MICRO (810 02) - IN OFFICE (Not yet reviewed by provider) Interpretation: Performing Lab: Notes/Report: COLOR yellow CLARITY clear GLUCOSE neg BILIRUBIN neg KETONE neg SPECIFIC GRAVITY 1.025 BLOOD neg PH 5 PROTEIN trace UROBILINOGEN neg NITRITE neg LEUKOCYTE ESTERASE trace REASON FOR VISIT lower abd pain, started around 2 weeks ago and getting worse, also lower back pains, changes in urination with urinating more frequently. changes in periods, spotting mid cycle and cramps are also worse, she did talk to her obgyn, she order a trans vaginal us but the co pay was over 500$ so she didnot schedule Medications Medication SIG (Take, Route, Frequency, Duration) Notes Start Date End Date Status Albuterol Sulfate HFA 108 (90 Base) MCG/ACT 1 puff as needed Inhalation every 4 hrs 05/09/2024 Active lamoTRIgine ER 50 MG 1 tablet Orally Onc e a day for 30 days Active PROzac 20 MG 1 capsule Orally Onc e a day for 30 days Active Social History Tobacco Use: Social History Observation Description Date Details (start date - stop date) Never Smoker NA - NA Tobacco Use/Smoking Question Answer Notes Patient is a nonsmoker AUDIT-C (Standard) Question Answer Notes Did you have a drink containing alcohol in the p ast year? No Points 0 Interpretation Negative Vital Signs Temperature 98.6 degrees Fahrenheit 11/03/19 25 Blood pressure systolic 118 mm Hg 11/03/19 25 Blood pressure diastolic 62 mm Hg 025 Height 61 in 11/02/2024 Weight 152.4 lbs 11/02/2024 BMI 28.79 kg/m2 11/02/2024 Encounters Encounter Location Date Provider Diagnosis [facility] ([place], [place]) [address] [place] [address] 11/02/2024 Erin Whiteside Pelvic pain in female R10.2 Assessments Encounter Date Diagnosis (ICD Code) Assessment Notes Treatment Notes Treatment Clinical Notes Section Notes 11/02/2024 Pelvic pain in female (ICD-10 - R10.2) fu OBGYN with US results Plan Of Treatment Treatment Notes Assessment Notes Pelvic pain in female fu OBGYN with US r esults Pending Test Test Name Order Date UA (URINALYSIS, COMPLETE) 11/02/2024 UA DIP NONAUTO WO MICRO (87685) - IN OFF ICE 11/02/2024 Urine Culture 11/02/2024 US PELVIS AND TRANSVAG 11/02/2024 Next Appt Details Follow Up: prn, Reason: Progress Notes * Zainab MARTINEZ KDOB: [birth year] (29 yo F)Acc No.[id number]:11/02/2024 Progress Note Patient: Zainab COLE Provider: Virgil Whiteside ([facility]), REMELT PAN TANK OPERATOR :1995 A ge:29 Y S ex:Female Date:11/02/2024 [id number] Check In:09:55 AM ESTCheck O ut:10:19 AM EST Subjective: * Chief Complaints: * 1 . Lower abd pain, started around 2 weeks ago and getting worse, also lower back pains, changes in urination with urinating more frequently. changes in periods, spotting mid cycle and cramps are also worse. 2. She did talk to her obgyn, she order a trans vaginal us but the co pay was over 500$ so she did not schedule. * HPI: G eneral: see chief complaint could make payments if US done at , needs ordered urinary frequency and back pain doesnt feel like other UTIS had urine here not concerning. * ROS: G eneral/Constitutional: Fever d enies. H eadache d enies. W eight loss?denies. O phthalmologic: Discharge d enies. E ye Pain d enies. I tching and redness d enies. E NT: Nasal discharge d enies. N lucas congestion d enies.?Sore throat d enies. C ardiovascular: Chest tightness/ heavy pressure d enies. R apid heart rate d enies. S welling of extremities d enies. C hest pain d enies. ? R espiratory: Productive cough d enies. C hest pain d enies. C ough d enies. S hortness of breath d enies. W heezing d enies. ? G astrointestinal: Abdominal pain l ower abdominal pain and cramps. C onstipation d enies. D ecreased appetite d enies. D iarrhea d enies. N ausea?denies. V omiting d enies. G enitourinary: Urinary incontinence d enies. F requent urination a dmits. P ainful urination d enies. M usculoskeletal: Back pain f lank pain. N mary pain d enies. M uscle aches d enies. S kin: Rash d enies. S kin lesion(s) d enies. ? 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 Modified On:01/13/2023U Status:confirmed E16.1 Hyperinsulinemia Modified On:01/13/2023U Status:confirmed F41.9 Anxiety and depressi on Modified On:01/13/2023U Status:confirmed R87.610 ASCUS of cervix with negative high risk HPV Modified On:01/13/2023 Status:confirmed C7A.8 Neuroendocrine carci noma Modified On:01/13/2023 Status:confirmed N63.0 Breast lump in femal e Modified On:01/13/2023 Status:confirmed 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 difficile colitis, Neuroendocrine carcinoma, Neoplasm of appendix, Migraine headache, Hyperinsulinemia, Borderline personality disorder, Anxiety and depression. * Surgical History: Scott Carcamo, Dr. Fraser 02/03/22, Hemicolectomy, RT 2021, Partial Small intestine removal 2021, Lymph nodes resection from abd 2021, 08/2023. * Hospitalization/Major Diagno stic Procedure: s ee above , 08/2023. * Family History: F ather: alive, Asthma, diagnosed with Chronic kidney disease, unspecified. M other: alive, Anxiety/depression, diagnosed with Anxiety, Diabetes mellitus without mention of complication, type II or unspecified type, not stated as uncontrolled, Unspecified essential hypertension. S ister(s): alive, diagnosed with Unspecified essential hypertension. D sue(s): alive. M aternal aunt: diagnosed with Other malignant neoplasm of unspecified site. 4 sister(s) - healthy. 1 daughter(s) . . * Social History: T obacco Use: T obacco Use/Smoking P atient is a n onsmoker D rug/Alcohol: A JASS-C (Standard) D id you have a drink containing alcohol in the past year? N o P oints 0 I nterpretation N egative * Medications: T aking Albuterol Sulfate HFA 108 (90 Base) MCG/ACT Aerosol Solution 1 puff as needed Inhalation every 4 hrs , Taking lamoTRIgine ER 50 MG Tablet Extended Release 24 Hour 1 tablet Orally Once a day , Taking PROzac(FLUoxetine HCl) 20 MG Capsule 1 capsule Orally Once a day , Medication List reviewed and reconciled with the patient * Allergies: G abapentin: nausea, diarrhea, Flagyl: nausea and vomiting. Objective: * Vitals: W t:152.4lbs, Ht: 61 in, BP:118/62mm Hg, Temp:98.6F, BMI:28.79Index, Ht-cm: 154.94 cm, Wt-k.13 kg. * Examination: G eneral Examinations: GENERAL APPEARANCE: a lert and oriented, i n no acute distress. EYES: c onjunctiva normal, sclera non-icteric. NOSE: n ormal external appearance. LUNGS: c lear to auscultation bilaterally. CARDIO: r egular rate and rhythm, S1, S2 normal. ABDOMEN: s oft, mild tenderness to lower abdomen with palpation. MUSCULOSKELETAL: G ait and station normal. SKIN: w arm and dry. Assessment: * Assessment: 1. P elvic pain in female - R10.2 (Primary) Plan: * Treatment: * Labs: * L ab: UA DIP NONAUTO WO MICRO (02865) - IN OFFICE (Collection Date & Time - 11/02/2024) Value Reference Range C OLOR yellow * C LARITY clear * G LUCOSE neg * B ILIRUBIN neg * K ETONE neg * S PECIFIC GRAVITY 1.025 * B LOOD neg * P H 5 * P ROTEIN trace * U ROBILINOGEN neg * N ITRITE neg * L EUKOCYTE ESTERASE trace * Procedure Codes: 8 1002 URINALYSIS WO MICRO * Preventive Medicine: Screenings/Counseling: B PR ACTION PLAN Above Normal BMI Follow-up D ietary management education, guidance, and counseling * Follow Up: p rn * * Electronically signed by Ronda Whiteside , [employer] DEVELOPER, GAS USAGE METER CLERK.REMELT [employer] TANK OPERATOR.[id number] on 11/03/2024 at 11:28 AM EDT Sign off status: Completed Visit Status: C HK (Check Out) true * Provider: Virgil Whiteside ([facility]), [employer]ELT [employer] T[employer] OPERATOR Date: 0 11/02/2024 Generated for Tessa chavez/Guerline/Zoe on: 0 02/15/2025 09:08 AM EDT History and Physical Notes * HPI (History of Present Illness) Category Sub-Category Detail Notes Category Not es General see chief complaint could make payments if US done at , needs ordered urinary frequency and back pain doesnt feel like other UTIS had urine here not concerning Examination Category Sub-Category Detail Notes Category Not es General Examinations GENERAL APPEARANCE: alert a nd oriented, in no acute distress EYES: conjunctiva normal, sclera non-icteric EARS: NOSE: normal external appe arance THROAT: CARDIO: regular rate and rhy thm, S1, S2 normal LUNGS: clear to auscultatio n bilaterally ABDOMEN: soft, mild tendernes s to lower abdomen with palpation SKIN: warm and dry BACK: MUSCULOSKELETAL: Gait and station nor mal LYMPH NODES:
--- OUTSIDE RECORDS SUMMARY | 2024-11-06 06:37 | XMS_ITS ---
Author Organization The [facility] [place] Address [address] [place] [address] Care Team Providers Care Land Economist Name Role Phone Erin Whiteside Primary Care Provider REASON FOR VISIT us Encounters Encounter Location Date Provider Diagnosis [facility] [address] [place] [address] 11/06/2024 Erin Whiteside Plan Of Treatment No Information Progress Notes * Zainab MARTINEZ KDOB: [birth year] (29 yo F)Acc No.[id number]:11/06/2024 Patient: Pablito COLEmen Peggy :1995 A ge:29 Y S ex:Female Address:[address] [place] [address], [phone] * true * Date: Generated for Tessa chavez/Guerline/eTransmitting on: 0 02/15/2025 09:09 AM EDT
--- OUTSIDE RECORDS SUMMARY | 2024-11-06 09:35 | XMS_ITS ---
Author Organization The [facility] in [place] Address [address] [place] [address] Care Team Providers Care Dairy Powder Mixer Operator Name Role Phone Erin Whiteside Primary Care Provider REASON FOR VISIT Urine test Encounters Encounter Location Date Provider Diagnosis [facility] [address] [place] [address] 11/06/2024 Erin Whiteside Frequency R35.0 Assessments Encounter Date Diagnosis (ICD Code) Assessment Notes Treatment Notes Treatment Clinical Notes Section Notes 11/06/2024 Frequency (ICD-10 - R35.0) Plan Of Treatment Pending Test Test Name Order Date UA (URINALYSIS, COMPLETE) 11/06/2024 CULTURE, URINE w SENSITIVITY 11/06/2024 URINALYSIS MICROSCOPIC 11/06/2024 Progress Notes * Zainab MARTINEZ KDOB: [birth year] (29 yo F)Acc No.[id number]:11/06/2024 Patient: Zainab COLE :1995 A ge:29 Y S ex:Female Address:[address] [place] [address], [phone] Subjective: * Chief Complaints: * U rine test * Medical History: * Surgical History: * Hospitalization/Major Diagno stic Procedure: * Medications: Objective: * Vitals: * Physical Examination: Assessment: * Assessment: 1. F requency - R35.0 Plan: * Treatment: * Procedure Codes: * true * Date: Generated for Printi ng/Faxing/eTransmitting on: 0 02/15/2025 09:09 AM EDT
--- OUTSIDE RECORDS SUMMARY | 2025-02-01 10:40 | XMS_ITS | Encounter Summary ---
Author Organization [facility] Address [address] [place] [address] Care Team Providers Care Director Of Income Tax Name Role Phone Unavailable Primary Care Provider Unavailabl e Reason for Visit * Reason Comments Pre-op Visit Encounter Details Date Type Department Care Team (Late st Contact Info) Description 02/01/2025 10:40 AM EDT Consult ALBERTO Marquez OBGYN [address] [place] [address] Ron Ruano DO [address] [place] [address] Pre-op examination; Pelvic pain; Pelvic congestion syndrome Social History Tobacco Use Types Packs/Day Years Used Date Smoking Tobacco: Never Assessed Comments Unknown Sex and Gender Information Value Date Recorded Sex Assigned at Female 01/25/2023 9:28 AM EDT Legal Sex Female 11:48 PM EDT Gender Identity Female 01/25/2023 9:28 AM EDT Sexual Orientation Straight 01/25/2023 9: 28 AM EDT documented as of this encounter Last Filed Vital Signs Vital Sign Reading Time Taken Comments Blood Pressure 112/78 02/01/2025 10:51 AM EDT Pulse - - Temperature - - Respiratory Rate - - Oxygen Saturation - - Inhaled Oxygen Concentration - - Weight 68.7 kg (151 lb 8 oz) 02/01/2025 10:51 AM EDT Height - - Body Mass Index 26.84 03/30/2023 2:54 PM EDT documented in this encounter Progress Notes * Eve Salazar - 02/01/2025 10:40 AM EDT Reason for Appointment: Patient ID: Zainab Swift is a 29 y.o. female who presents for Pre-op Visit Patient presents today for Pre Op appointment. Patient is scheduled to undergo Diagnostic Laparoscopy, possible DANA, possible FOE, possible BSO on 03-02-[address] Ruano at [facility]. MEDICATIONS Current Outpatient Medications Medication Instructions Acetaminophen (TYLENOL EXTRA STRENGTH PO) 500 mg, Daily Emgality 120 mg, Every 30 days FLUoxetine (PROZAC) 20 mg, Oral, Daily lamoTRIgine (LAMICTAL) 25 mg, Oral, Daily octreotide (SANDOSTATIN) 100 mcg, 3 times daily ALLERGIES Allergies Allergen Reactions Gabapentin Diarrhea and Nausea Only Other Reaction(s): nausea, diarrhea Metronidazole GI intolerance and Nausea Only Other Reaction(s): GI Disturbance PROBLEMS Active Ambulatory Problems Diagnosis Date Noted No Active Ambulatory Problems Resolved Ambulatory Problems Diagnosis Date Noted No Resolved Ambulatory Problems Past Medical History: Diagnosis Date Anxiety Cancer (HCC) Depression Personality disorder (HCC) HISTORY PAST MEDICAL HISTORY SOCIAL HISTORY Past Medical History: Diagnosis Date Anxiety Cancer (HCC) neuro-endocrinology cancer Depression Personality disorder (HCC) borderline Social History Tobacco Use Smoking status: Not on file Smokeless tobacco: Not on file Substance Use Topics Alcohol use: Not on file Drug use: Not on file FAMILY HISTORY Family History Problem Relation Name Age of Onset Breast cancer Mother's Sister SURGICAL HISTORY Past Surgical History: Procedure Laterality Date APPENDECTOMY SECTION, LOW TRANSVERSE 09/27/2023 CHOLECYSTECTOMY HEMICOLOECTOMY W/ ANASTOMOSIS OMENTECTOMY Partial SMALL INTESTINE SURGERY Had some of it removed. REVIEW OF SYSTEMS Review of Systems: Review of Systems Constitutional: Negative. HENT: Negative. Eyes: Negative. Respiratory: Negative. Cardiovascular: Negative. Gastrointestinal: Negative. Genitourinary: Negative. Musculoskeletal: Negative. Skin: Negative. Neurological: Negative. All other systems reviewed and are negative. Hematological: Negative. Endocrine: Negative. Allergic/Immunologic: Negative. OBJECTIVE Objective: Physical Exam Constitutional: Appearance: Normal appearance. She is normal weight. HENT: Head: Normocephalic. Cardiovascular: Rate and Rhythm: Normal rate. Pulses: Normal pulses. Pulmonary: Effort: Pulmonary effort is normal. Breath sounds: Normal breath sounds. Abdominal: Palpations: Abdomen is soft. Musculoskeletal: General: Normal range of motion. Neurological: General: No focal deficit present. Mental Status: She is alert and oriented to person, place, and time. Psychiatric: Mood and Affect: Mood normal. Behavior: Behavior normal. Thought Content: Thought content normal. Judgment: Judgment normal. Vitals and nursing note reviewed. Vitals: Estimated body mass index is 26.66 kg/m?? as calculated from the following: Height as of 03/30/23: 5' 3 . Weight as of 11/21/24: 150 lb 8 oz. BP: No LMP recorded. ASSESSMENT & PLAN ICD-10-CM 1. Pre-op examination Z01.818 2. Pelvic pain R10.2 3. Pelvic congestion syndrome N94.89 Pre Op: Patient is doing well but has complaints of pelvic pain. I have discussed conservative management vs. surgical management with the patient in detail and patient desires surgical management at this time. Patient will undergo Diagnostic Laparoscopy, possible DANA, possible FOE, possible BSO on 03/02/2025. Surgical consents were signed, mmc was reviewed, and patient is to proceed to [facility] OR. Follow Up: Patient is to follow up between 1-2 weeks post operative to assess proper healing and recovery fromprocedure. Documented by Rhoda Ortega LPN on behalf of: Ron Ruano DO documented in this encounter Plan of Treatment Upcoming Encounters Date Type Department Care Team (Late st Contact Info) Description 03/08/2025 9:30 AM EDT Office Visit ALBERTO HARDING [address] [place] [address] Elayne Bush PA [address] [place] [address] documented as of this encounter Goals Goal Patient Goal Type Associated Problems Recent Progress Patient-Stated? Author Reminders Care Plan OB Reminders No Open Scheduling, Background documented as of this encounter Visit Diagnoses Diagnosis Pre-op examination Pelvic pain Pelvic congestion syndrome documented in this encounter Additional Health Concerns Active Problems Noted Date Diagnosed Date OB Reminders 03/15/2023 documented as of this encounter
--- OUTSIDE RECORDS SUMMARY | 2025-02-15 09:09 | XMS_ITS | Encounter Summary ---
Author Organization [facility] Address [address] [place] [address] Care Team Providers Care Manager Heavy Duty Name Role Phone Unavailable Primary Care Provider Unavailabl e Encounter Details Date Type Department Care Team (Late st Contact Info) Description 08/29/2024 Orders Only NOMC[facility] HARDING [address] [place] [address] Quin Snyder LPN [address] [place] [id number] Social History Tobacco Use Types Packs/Day Years Used Date Smoking Tobacco: Never Assessed Comments Unknown Sex and Gender Information Value Date Recorded Sex Assigned at Female 01/25/2023 9:28 AM EDT Legal Sex Female 11:48 PM EDT Gender Identity Female 01/25/2023 9:28 AM EDT Sexual Orientation Straight 01/25/2023 9: 28 AM EDT documented as of this encounter Plan of Treatment Upcoming Encounters Date Type Department Care Team (Late st Contact Info) Description 03/08/2025 9:30 AM EDT Office Visit NOM[facility] HARDING [address] [place] [address] Elayne Bush PA [address] [place] [address] documented as of this encounter Goals Goal Patient Goal Type Associated Problems Recent Progress Patient-Stated? Author Reminders Care Plan OB Reminders No Open Scheduling, Background documented as of this encounter Procedures Procedure Name Priority Date/Time Associated Diagnosis Comments PAP SMEAR Routine 08/17/2024 12:00 AM EST documented in this encounter Results * Pap Smear (08/17/2024 12:00 AM EST) Swab Cervical swab / Unknown us Ald[facility] Nurse [facility] LAB CYTOLOGY ORDERABLES Final Result EXTERNAL LAB documented in this encounter Visit Diagnoses Not on filedocumented in this encounter Additional Health Concerns Active Problems Noted Date Diagnosed Date OB Reminders 03/15/2023 documented as of this encounter
--- OUTSIDE RECORDS SUMMARY | 2025-02-15 09:09 | XMS_ITS | Encounter Summary ---
Author Organization [facility] enter Address [address] [place] [address] Care Team Providers Care Lining Scrubber Name Role Phone Rodney Olivas MD Unavailable Cheikh Coelho MD Unavailable Unavailable Erin Whiteside CNP Primary Care Provider + Lavern Paul MD, MPH Unavailable [phone] Ron Ruano DO Unavailable [phone] Dolores Johnson PSYCHIATRIC TECHNICIAN-1ST PRESSMAN ON WEB PRESS Unavailable [phone] Vinicius Gomes MD, PhD Unavailable [phone] Diego Apodaca MD Unavailable [phone] Reason for Visit * Reason Onset Date Comments Appointment 09/21/2024 Encounter Details Date Type Department Care Team (Late st Contact Info) Description 09/21/2024 Telephone Division of Medical Oncology [address] [facility] [address] [place] [address] Any Hayes, PSYCHIATRIC TECHNICIAN-1ST PRESSMAN ON WEB PRESS [address] [place], [place] [id number] Appointment Social History Tobacco Use Types Packs/Day [...] documented as of this encounter Care Teams Lining Scrubber Relationship Specialty Start Date End Date Erin Whiteside CNP [address] [facility] [address] PCP - General 03/10/23 Rodney Olivas MD Hematology 03/19/22 Cheikh Coelho MD Hedis Coordinator Cardiovascular Disease 10/07/22 Lavern Paul MD, MPH [address] [facility] 10th [place] [address] Oncologist Medical Oncology 03/31/23 Ron Ruano DO [address] [place] [address] Obstetrics & Gynecology 04/06/23 Dolores Johnson APRN-1ST PRESSMAN ON WEB PRESS [address] [place] [address] String Top Sealer Certified Nurse Practitioner 02/10/24 Vinicius Gomes MD, PhD [address] [facility] 8th [place] [address] Oncologist Medical Oncology 02/10/24 Diego Apodaca MD [address] [place] [address] [address] [place] [address] Gastroenterology 02/16/24 documented as of this encounter
--- OUTSIDE RECORDS SUMMARY | 2025-02-15 09:09 | XMS_ITS | Encounter Summary ---
Author Organization [facility] enter Address [address] [place] [address] Care Team Providers Care Flask Carrier Name Role Phone Rodney Olivas MD Unavailable Cheikh Coelho MD Unavailable Unavailable Erin Whiteside STRATEGIC PLANNER Primary Care Provider + Lavern Paul MD, MPH Unavailable [phone] Ron Ruano DO Unavailable [phone] Dolores Johnson APRN-STRATEGIC PLANNER Unavailable [phone] Vinicius Gomes MD, PhD Unavailable [phone] Diego Apodaca MD Unavailable [phone] Encounter Details Date Type Department Care Team (Late st Contact Info) Description 09/21/2024 Telephone Division of Surgical Oncology [address] [address] Marcio Campos MD [address] [address] Social History Tobacco Use Types [...] documented as of this encounter Care Teams Flask Carrier Relationship Specialty Start Date End Date Erin Whiteside CNP [address] [place] [address] PCP - General 03/10/23 Rodney Olivas MD Hematology 03/19/22 Cheikh Coelho MD Software Developer Mid Level Cardiovascular Disease 10/07/22 Lavern Paul MD, MPH [address] [place] 10th [place] [address] Oncologist Medical Oncology 03/31/23 Ron Ruano DO [address] [facility] [address] [place] [address] Obstetrics & Gynecology 04/06/23 Dolores Johnson, SEED PELLETER-STRATEGIC PLANNER [address] [facility] [address] [place] [address] Garden Equipment Mechanic Certified Nurse Practitioner 02/10/24 Vinicius Gomes MD, PhD [address] [place] 8th [place] [address] Oncologist Medical Oncology 02/10/24 Diego Apodaca MD [address] [place] [address] [address] Gastroenterology 02/16/24 documented as of this encounter
--- OUTSIDE RECORDS SUMMARY | 2025-02-15 09:09 | XMS_ITS | Encounter Summary ---
Author Organization [facility] [employer] [facility] tem Address [id number] [address] [place] [address] Care Team Providers Care Engraver Machine Name Role Phone Erin Whiteside APRN-CUTTING MACHINE OPERATOR Primary Care Provider Encounter Details Date Type Department Care Team (Late st Contact Info) Description 04/14/2023 Abstract Maternal- Medicine at [facility] [address] [place] [address] Janna Deleon MD [address] [facility] [place], [address] [place] [address] Social History Tobacco Use Types Packs/Day Years [...] declined 02/18/2022 How often do you attend restoration or gnosticist serv ices? Never 02/18/2022 Do you belong to any clubs o r organizations such as restoration groups, unions, fraternal or athletic groups, or [...] Answer Date Recorded Total Score 16 02/18/2022 [facility] [place] of Occupat ional Health - Occupational Stress [...] ORDERABLES Final Resu lt Performing Organization Address City/[facility] Co de Phone Number MANUALLY TRANSCRIBED [...] ORDERABLES Final Resu lt Performing Organization Address City/[facility]/ZIP Co de Phone Number MANUALLY TRANSCRIBED RESULTS * CBC without diff (03/13/2023) Hemoglobin 11.3 MANUALLY TRANSCRIBED RESULTS Hematocrit 35.4 MANUALLY TRANSCRIBED RESULTS Rbc Mcv (Fl) By Automated Count 82.7 MANUALLY TRANSCRIBED RESULTS Platelets 341 MANUALLY TRANSCRIBED RESULTS us Ron R Alden DO LAB BLOOD ORDERABLES Final Resu lt Performing Organization Address City/[facility]/ZIP Co de Phone Number MANUALLY TRANSCRIBED RESULTS * HIV 1&2 AB/AG Screen (P24 AG) (03/13/2023) HIV 1&2 AB/AG non reactive MAN UALLY TRANSCRIBED RESULTS us Ron R Alden DO LAB BLOOD ORDERABLES Final Resu lt Performing Organization Address City/[facility]/ZIP Co de Phone Number MANUALLY TRANSCRIBED RESULTS * Type and screen (03/13/2023) Abo/Rh(D) A Positive MANUALLY TRANSCRIBED RESULTS Antibody Screen Negative MANUALLY TRANSCRIBED RESULTS us Ron R Alden DO BLOOD BANK TEST ORDERABLES Coco l Result Performing Organization Address [facility] Co de Phone Number MANUALLY TRANSCRIBED RESULTS * Rubella IGG immune status (03/13/2023) Rubella immune IgG 2.03 MANUALLY TRANSCRIBED RESULTS us Ron R Alden DO LAB BLOOD ORDERABLES Final Resu lt Performing Organization Address City/[facility] Co de Phone Number MANUALLY TRANSCRIBED RESULTS * Syphilis Total(Unknown Syphilis Status) (03/13/2023) Syphilis nonreactive MANUALLY TRANSCRIBED RESULTS us Ron R Alden DO LAB BLOOD ORDERABLES Final Resu lt Performing Organization Address [facility] Co de Phone Number MANUALLY TRANSCRIBED RESULTS documented in this encounter Visit Diagnoses Not on filedocumented in this encounter Additional Health Concerns Assessment Noted Time PHQ-9 Depression Total Score: 16 022 5:41 PM EDT documented as of this encounter Care Teams Engraver Machine Relationship Specialty Start Date End Date Erin Whiteside, SUPERVISOR STAVE CUTTING-CUTTING MACHINE OPERATOR [address] [facility] [place] [place] [address] PCP - General Family Medicine 02/11/22 documented as of this encounter
--- OUTSIDE RECORDS SUMMARY | 2025-02-15 09:09 | XMS_ITS | Encounter Summary ---
Author Organization [facility] enter Address [address] [place] [address] Care Team Providers Care Velocity Shooter Name Role Phone Rodney Olivas MD Unavailable Cheikh Coelho MD Unavailable Unavailable Erin Whiteside CERTIFIED PHLEBOTOMY TECHNICIAN Primary Care Provider [phone] Lavern Paul MD, MPH Unavailable [phone] Ron Ruano DO Unavailable [phone] Dolores Johnson APRN-CERTIFIED PHLEBOTOMY TECHNICIAN Unavailable [phone] Vinicius Gomes MD, PhD Unavailable [phone] Diego Apodaca MD Unavailable [phone] Reason for Visit * Reason Onset Date Comments Cancellation 01/29/2025 Encounter Details Date Type Department Care Team (Late st Contact Info) Description 01/29/2025 Telephone Division of Endocrinology [address] [facility] [address] [place] [address] Christopher Moralez APRN-CERTIFIED PHLEBOTOMY TECHNICIAN [address] [place] [address] Cancellation Social History Tobacco Use Types Packs/Day Years [...] Moderate depression; 15-19 = Moderately severe depression) 2 01/30/2025 Comments No Sex and Gender Information Value [...] encounter Miscellaneous Notes * Telephone Encounter - Rose Mary Tidwell - 01/29/2025 9:20 AM EDT Pt is experiencing car trouble and needs to reschedule her appt. She is wanting to know if a tele visit would be an option for her based on her [address] commute. documented in this encounter Plan of Treatment Not on file documented as of this encounter Visit Diagnoses Not on filedocumented in this encounter Additional Health Concerns Assessment Noted Time PHQ-9 Depression Total Score: 9 09/29/19 25 11:41 AM EDT documented as of this encounter Care Teams Velocity Shooter Relationship Specialty Start Date End Date Erin Whiteside CNP [address] [facility] [address] PCP - General 03/10/23 Rodney Olivas MD Hematology 03/19/22 Cheikh Coelho MD Medical Chief Technician Cardiovascular Disease 10/07/22 Lavern Paul MD, MPH [address] [facility] 10th [place] [address] Oncologist Medical Oncology 03/31/23 Ron Ruano DO [address] [place] [address] Obstetrics & Gynecology 04/06/23 Dolores Johnson APRN-CERTIFIED PHLEBOTOMY TECHNICIAN [address] [place] [address] Manager Consumer Certified Nurse Practitioner 02/10/24 Vinicius Gomes MD, PhD [address] [facility] 8th [place] [address] Oncologist Medical Oncology 02/10/24 Diego Apodaca MD [address] [place] [address] [address] [place] [address] Gastroenterology 02/16/24 documented as of this encounter
--- OUTSIDE RECORDS SUMMARY | 2025-02-15 09:09 | XMS_ITS | Encounter Summary ---
Author Organization [facility] [facility] Address [address] [place] [address] Care Team Providers Care Call Manager Name Role Phone Rodney Olivas MD Unavailable Cheikh Coelho MD Unavailable Unavailable Erin Whiteside MANUFACTURER REPRESENTATIVE Primary Care Provider +[phone] Lavern Paul MD, MPH Unavailable [phone] Ron Ruano DO Unavailable [phone] Dolores Johnson APRN-MANUFACTURER REPRESENTATIVE Unavailable [phone] Vinicius Gomes MD, PhD Unavailable [phone] Diego Apodaca MD Unavailable [phone] Reason for Visit * Reason Onset Date Comments Visit Preparation 06/05/2024 Encounter Details Date Type Department Care Team (Late st Contact Info) Description 06/05/2024 Telephone Division of Medical Oncology [address] [facility] 10th [place] [address] Yina Amaya, RUPERT Visit Preparation Social History Tobacco Use Types [...] documented as of this encounter Care Teams Call Manager Relationship Specialty Start Date End Date Erin Whiteside CNP [address] [facility] [place] [address] PCP - General 03/10/23 Rodney Olivas MD Hematology 03/19/22 Cheikh Coelho MD Glass Washer And Carrier Cardiovascular Disease 10/07/22 Lavern Paul MD, MPH [address] [place] 10th [place] [address] Oncologist Medical Oncology 03/31/23 Ron Ruano DO [address] [facility] [address] [place] [address] Obstetrics & Gynecology 04/06/23 Dolores Johnson, VENDING MACHINE SERVICER-MANUFACTURER REPRESENTATIVE [address] [facility] [address] [place] [address] Steam Shovel Engineer Certified Nurse Practitioner 02/10/24 Vinicius Gomes MD, PhD [address] [facility] 8th [place] [address] Oncologist Medical Oncology 02/10/24 Diego Apodaca MD [facility] [address] [facility] [address] [place] [address] Gastroenterology 02/16/24 documented as of this encounter
--- OUTSIDE RECORDS SUMMARY | 2025-02-15 09:09 | XMS_ITS | Encounter Summary ---
Author Organization [facility] Address [address] [place] [address] Care Team Providers Care Steel Heater Name Role Phone Rodney Olivas MD Unavailable Cheikh Coelho MD Unavailable Unavailable Erin Whiteside WAITER/WAITRESS CAPTAIN Primary Care Provider +[phone] Lavern Paul MD, MPH Unavailable [phone] Ron Ruano DO Unavailable [phone] Dolores Johnson APRN-WAITER/WAITRESS CAPTAIN Unavailable [phone] Vinicius Gomes MD, PhD Unavailable [phone] Diego Apodaca MD Unavailable [phone] Reason for Visit * Reason Onset Date Comments Outside Medical Records Request 02/07/2025 Encounter Details Date Type Department Care Team (Late st Contact Info) Description 02/07/2025 Telephone Division of Medical Oncology [address] [facility] [address] [place] [address] Geneva Moncada, RUPERT Outside Medical Records Request Social History Tobacco Use Types Packs/Day Years [...] encounter Miscellaneous Notes * Telephone Encounter - Geneva Moncada RN - 02/07/2025 9:34 AM EDT Sent My Chart Message 02/07/25 asking patient if / when / where she had c-diff testing and hydrogen breath test done. * Telephone Encounter - Geneva Moncada RN - 02/07/2025 8:52 AM EDT ----- Message from RUPERT Bran sent at 01/31/2025 9:46 AM EDT ----- Regarding: c-diff and Hydrogen breath test Please f/up with pt to see if c-diff testing or hydrogen breath test have been completed locally [facility]. Orders sent via [employer] on 01/31 documented in this encounter Plan of Treatment Not on file documented as of this encounter Visit Diagnoses Not on filedocumented in this encounter Additional Health Concerns Assessment Noted Time PHQ-9 Depression Total Score: 2 01/31/20 25 2:28 PM EDT documented as of this encounter Care Teams Steel Heater Relationship Specialty Start Date End Date Erin Whiteside WAITER/WAITRESS CAPTAIN [address] [facility] [place] [address] PCP - General 03/10/23 Rodney Olivas MD Hematology 03/19/22 Cheikh Coelho MD Granular Operator Cardiovascular Disease 10/07/22 Lavern Paul MD, MPH [address] [facility] [place] 10[address] [place] [address] Oncologist Medical Oncology 03/31/23 Ron Ruano DO [address] [facility] [address] [place] [address] Obstetrics & Gynecology 04/06/23 Dolores Johnson APRN-WAITER/WAITRESS CAPTAIN [address] [place] [address] [place] [address] Welder Setter Electron Beam Machine Certified Nurse Practitioner 02/10/24 Vinicius Gomes MD, PhD [address] [facility] 8th [place] [address] Oncologist Medical Oncology 02/10/24 Diego Apodaca MD [address] [place] [address] Gastroenterology 02/16/24 documented as of this encounter
--- OUTSIDE RECORDS SUMMARY | 2025-02-15 09:09 | XMS_ITS | Encounter Summary ---
Author Organization [facility] Address [address] [place] [address] Care Team Providers Care Screen Making Technician Name Role Phone Unavailable Primary Care Provider Unavailabl e Encounter Details Date Type Department Care Team (Late st Contact Info) Description 12/24/2023 Clinisync Result Encounter [facility] External Department Unsolicited Elayne Cast PA [address] [place] [id number] Social History Tobacco Use Types Packs/Day Years Used Date Smoking Tobacco: Never Assessed Comments No Sex and Gender Information Value [...] 03/08/2025 9:30 AM EDT Office Visit [facility] [address] [place] [address] Elayne Cast PA [address] [place] [id number] documented as of this encounter Goals Goal Patient Goal Type Associated Problems Recent Progress Patient-Stated? Author Reminders Care Plan OB Reminders No Open Scheduling, Background documented as of this encounter Procedures Procedure Name Priority Date/Time Associated Diagnosis Comments US THYROID 12/24/2023 8:10 AM EDT documented in this encounter Results * US thyroid (12/24/2023 8:10 AM EDT) Anatomical Region Laterality Modality Head, Neck Ultrasound 12/24/2023 8:10 AM EDT Narrative 12/24/2023 8:13 AM EDT [address] [address] Ultrasound Report Signed Patient: ZAINAB MARTINEZ MR#: [id number] : 1995 Acct:[id number] Age/Sex: 28 / F ADM Date: 12/22/23 Loc: US Attending Dr: Elayne Cast Ordering Physician: Elayne Cast Date of Service: 12/22/23 Procedure(s): US thyroid Accession Number(s): [id number] cc: Elayne Cast; ELOISE SAMS [address] [id number] Patient Name: ZAINAB MARTINEZ MRN: [id number] date: 1995 Sex: F Assigned Patient Location: US Current Patient Location: [facility] Accession/Order Number: [id number] Exam Date: 12/22/2023 17:34 Report Date: 12/24/2023 08:10 At the request of: ELAYNE CAST Procedure: US thyroid EXAMINATION: US thyroid HISTORY: Enlarged thyroid E04.9 COMPARISON: No relevant comparison available. FINDINGS: RIGHT LOBE: Normal size and echotexture. Lobe size: 4.6 x 1.1 x 1.6 cm LEFT LOBE: 2 incidental tiny colloid cysts. Lobe size: 4.2 x 1.1 x 1.6 cm ISTHMUS: Normal size and echotexture. Thickness: 2 mm US/US thyroid IMPRESSION: 1. No enlargement or suspicious findings of the thyroid gland. Electronically authenticated by: LORENZO CH Date: 12/24/2023 08:10 Dictated By: Lorenzo Ch M.D. Signed By: 12/24/2313 DD/ 9 TD/TT: Mri Supervisor: Procedure Note Radiology, Radiologist, MD - 12/24/2023 [facility] [place] [id number] Ultrasound Report Signed Patient: ZAINAB MARTINEZ KMR#: [id number] : 1995Acct:[id number] Age/Sex: 28 / FADM Date: 12/22/23 Loc: US Attending Dr: Elayne Cast Ordering Physician: Elayne Cast Date of Service: 12/22/23 Procedure(s): US thyroid Accession Number(s): [id number] cc: Ealyne Cast; ELOISE SAMS [place] [address] Patient Name: ZAINAB MARTINEZ MRN: [id number] date: 1995 Sex: F Assigned Patient Location: Current Patient Location: [facility] Accession/Order Number: [id number] Exam Date: 12/22/2023 17:34 Report Date: 12/24/2023 08:10 At the request of: ELAYNE CAST Procedure: US thyroid EXAMINATION: US thyroid HISTORY: Enlarged thyroid E04.9 COMPARISON: No relevant comparison available. FINDINGS: RIGHT LOBE: Normal size and echotexture. Lobe size: 4.6 x 1.1 x 1.6 cm LEFT LOBE: 2 incidental tiny colloid cysts. Lobe size: 4.2 x 1.1 x 1.6 cm ISTHMUS: Normal size and echotexture. Thickness: 2 mm US/US thyroid IMPRESSION: 1. No enlargement or suspicious findings of the thyroid gland. Electronically authenticated by: LORENZO CH Date: 12/24/2023 08:10 Dictated By: Lorenzo Ch M.D. Signed By:12/24/23 0813 DD/ TD/TT: Mri Supervisor: us Elayne SIMMONS IMSarah US PROCEDURES Final Result documented in this encounter Visit Diagnoses Not on filedocumented in this encounter Additional Health Concerns Active Problems Noted Date Diagnosed Date OB Reminders 03/15/2023 documented as of this encounter
--- OUTSIDE RECORDS SUMMARY | 2025-02-15 09:09 | XMS_ITS | Encounter Summary ---
Author Organization [facility] Address [address] [place] [address] Care Team Providers Care Supervisor Microfilm Duplicating Unit Name Role Phone Erin Whiteside RN Primary Care Provider Unavaila Rodney Morrell MD Unavailable Archie Hugo MD, PhD Unavailable Unavailable Cheikh Coelho MD Unavailable Unavailable Erin Whiteside MACHINE HELPER Primary Care Provider + Lavern Paul MD, MPH Unavailable [phone] Ron Ruano DO Unavailable [phone] Dolores Johnson GLUING MACHINE OPERATOR-MACHINE HELPER Unavailable [phone] Vinicius Gomes MD, PhD Unavailable [phone] Diego Apodaca MD Unavailable [phone] Diego Apodaca MD Unavailable [phone] Reason for Visit * Reason Onset Date Comments Paperwork 06/01/2022 Encounter Details Date Type Department Care Team (Late st Contact Info) Description 06/01/2022 Telephone Division of Medical Oncology [address] [place] [address] Archie Hugo, , PhD Paperwork Social History Tobacco Use Types [...] for time off from work sent to MACHINE HELPER now as follows: 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 So I am going to start at 4 weeks and she will update us around then and if feeling well and ready to go back we can release then to RTW ? Does that sound good? Per MACHINE HELPER OK to write letter as noted above. Nicole Mays RN * Telephone Encounter - Yovany Greene - 06/01/2022 8:25 AM EST Asking for a doctor's excuse for the surgery 05/22 to be emailed to her. Today if possible. documented in this encounter Plan of Treatment Not on file documented as of this encounter Visit Diagnoses Not on filedocumented in this encounter Care Teams Supervisor Microfilm Duplicating Unit Relationship Specialty Start Date End Date Erin Whiteside RN PCP - General 03/19/22 03/09/23 Erin Whiteside CNP [address] [place] [address] PCP - General 03/10/23 Rodney Olivas MD Hematology 03/19/22 Archie Hugo MD, PhD Surgeon Surgical Oncology 07/08/22 02/10/24 Cheikh Coelho MD Resident Care Associate Cardiovascular Disease 10/07/22 Lavern Paul MD, MPH [address] [place] [address] Oncologist Medical Oncology 03/31/23 Ron Ruano DO [address] [facility] [address] [place] [address] Obstetrics & Gynecology 04/06/23 Dolores Johnson, GLUING MACHINE OPERATOR-MACHINE HELPER [address] [facility] [address] [place] [address] Bariatric Coordinator Certified Nurse Practitioner 02/10/24 Vinicius Gomes MD, PhD [address] [place] [address] Oncologist Medical Oncology 02/10/24 Diego Apodaca MD [address] [place] [address] Bariatric Coordinator Internal Medicine 02/11/24 02/15/24 Diego Apodaca MD [address] [place] [address] Gastroenterology 02/16/24 documented as of this encounter
--- OUTSIDE RECORDS SUMMARY | 2025-02-15 09:09 | XMS_ITS | Encounter Summary ---
Author Organization [facility] Address [address] [place] [address] Care Team Providers Care Slide Attendant Name Role Phone Rodney Olivas MD Unavailable Cheikh Coelho MD Unavailable Unavailable Erin Whiteside LEHR LOADER Primary Care Provider [phone] Lavern Paul MD, MPH Unavailable [phone] Ron Ruano DO Unavailable [phone] Dolores Johnson APRN-LEHR LOADER Unavailable [phone] Vinicius Gomes MD, PhD Unavailable [phone] Diego Apodaca MD Unavailable [phone] Reason for Visit * Reason Onset Date Comments Medication Follow-up 02/06/2025 Appointment 02/06/2025 Labs Only 02/06/2025 Encounter Details Date Type Department Care Team (Late st Contact Info) Description 02/06/2025 Telephone Division of Medical Oncology [address] [place] [address] [place] [address] Geneva Moncada, furniture arranger Follow-up; Appointment; Labs Only Social History Tobacco Use Types Packs/Day Years [...] Encounter - Geneva Moncada RN - 02/07/2025 11:56 AM EDT Pt responded per My Chart message 02/07 from a different encounter that she will be holding off on the lanreotide injections for now and will continue her short acting Octreotide. I don't know when you would like to follow up with her / LFT's prior * Telephone Encounter - Geneva Moncada RN - 02/06/2025 2:34 PM EDT LVM with patient requesting a call back regarding date of 1st scheduled Lanreotide Injection. Left call back number . * Telephone Encounter - Geneva Moncada RN - 02/06/2025 9:17 AM EDT ----- Message from RUPERT Bran sent at 01/31/2025 10:47 AM EDT ----- Regarding: lanreotide Pt getting set up for lanroetide locally. Order sent to [facility] infusion center on 01/31. Please follow up to see when pt is scheduled for 1st inj. Per AVS from 01/30: RTC with Ye 3w post 1st inj with LFT prior Please ensure pt is scheduled based on first lanreotide locally documented in this encounter Plan of Treatment Not on file documented as of this encounter Visit Diagnoses Not on filedocumented in this encounter Additional Health Concerns Assessment Noted Time PHQ-9 Depression Total Score: 2 01/31/20 25 2:28 PM EDT documented as of this encounter Care Teams Slide Attendant Relationship Specialty Start Date End Date Erin Whiteside LEHR LOADER [address] [place] [address] PCP - General 03/10/23 Rodney Olivas MD Hematology 03/19/22 Cheikh Coelho MD Wool Batting Worker Cardiovascular Disease 10/07/22 Lavern Paul MD, MPH [address] [facility] [address] [place] [address] Oncologist Medical Oncology 03/31/23 Ron Ruano DO [address] [facility] [address] [place] [phone] Obstetrics & Gynecology 04/06/23 Dolores Johnson APRN-LEHR LOADER [address] [facility] [address] [place] [phone] Management Trainee Certified Nurse Practitioner 02/10/24 Vinicius Gomes MD, PhD [address] [facility] 8th [place] [address] Oncologist Medical Oncology 02/10/24 Diego Apodaca MD [address] [place] [address] Gastroenterology 02/16/24 documented as of this encounter
--- OUTSIDE RECORDS SUMMARY | 2025-02-15 09:09 | XMS_ITS | Encounter Summary ---
Author Organization [facility] Address [address] [place] [address] Care Team Providers Care Telecommunications Engineer Name Role Phone Unavailable Primary Care Provider Unavailabl e Encounter Details Date Type Department Care Team (Late st Contact Info) Description 04/06/2023 Abstract [facility] [address] [place] [address] Ron Ruano DO [address] [facility] [address] [facility] [address] Raghu Marquez, [facility] Social History Tobacco Use Types Packs/Day Years Used Date Smoking Tobacco: Never Assessed Comments Yes Sex and Gender Information Value Date Recorded Sex Assigned at Female 01/25/2023 9:28 AM EDT Legal Sex Female 11:48 PM EDT Gender Identity Female 01/25/2023 9:28 AM EDT Sexual Orientation Straight 01/25/2023 9: 28 AM EDT COVID-19 Exposure Response Date Recorded In the last 10 days, have yo u been in contact with someone who was confirmed or suspected to have Coronavirus/COVID-19? No / Unsure 03/29/2023 2:26 PM EDT documented as of this encounter Plan of Treatment Upcoming Encounters Date Type Department Care Team (Late st Contact Info) Description 03/08/2025 9:30 AM EDT Office Visit [facility]ERTO HARDING [address] [place] [address] Elayne Bush PA [address] [facility] [address] [place], [facility] documented as of this encounter Goals Goal Patient Goal Type Associated Problems Recent Progress Patient-Stated? Author Reminders Care Plan OB Reminders No Open Scheduling, Background documented as of this encounter Visit Diagnoses Not on filedocumented in this encounter Additional Health Concerns Active Problems Noted Date Diagnosed Date OB Reminders 03/15/2023 documented as of this encounter
--- OUTSIDE RECORDS SUMMARY | 2025-02-15 09:09 | XMS_ITS | Encounter Summary ---
Author Organization [facility] [employer] [facility] tem Address [id number] [address] [place] [address] Care Team Providers Care Electric Meter Inspector Name Role Phone Stevo Erin Persaud APRN-CLINICAL HAEMATOLOGIST Primary Care Provider Encounter Details Date Type Department Care Team (Late st Contact Info) Description 04/14/2023 Orders Only Maternal- Medicine at [facility] [address] [place] [phone] Ref Prov, [place] [address] Social History Tobacco Use Types Packs/Day Years [...] declined 02/18/2022 How often do you attend shinto or zoroastrian serv ices? Never 02/18/2022 Do you belong to any clubs o r organizations such as shinto groups, unions, fraternal or athletic groups, or [...] Answer Date Recorded Total Score 16 02/18/2022 [facility] - Occupational Stress [...] Recorded Do you need help finding a [facility] career [facility] and/or a training program? No [...] 3:50 PM EDT) Anatomical Region Laterality Modality OB-CHILD CARE SITTER Ultrasound us Not In System Ref Prov [...] documented as of this encounter Care Teams Electric Meter Inspector Relationship Specialty Start Date End Date Erin Whiteside, DISTRICT WILDLIFE MANAGER-CLINICAL HAEMATOLOGIST [address] [place] [address] PCP - General Family Medicine 02/11/22 documented as of this encounter
--- OUTSIDE RECORDS SUMMARY | 2025-02-15 09:09 | XMS_ITS | Encounter Summary ---
Author Organization [facility] enter Address [address] [place] [address] Care Team Providers Care Media Reporter Name Role Phone Erin Whiteside RN Primary Care Provider Unavaila Rodney Morrell MD Unavailable Archie Hugo MD, PhD Unavailable Unavailable Cheikh Coelho MD Unavailable Unavailable Erin Whiteside ASL INTERPRETER Primary Care Provider + Lavern Paul MD, MPH Unavailable [phone] Ron Ruano DO Unavailable [phone] Dolores Johnson MOUNTER SMOKING PIPE-ASL INTERPRETER Unavailable [phone] Vinicius Gomes MD, PhD Unavailable [phone] Diego Apodaca MD Unavailable [phone] Diego Apodaca MD Unavailable [phone] Reason for Visit * Reason Onset Date Comments Medication Problem 05/21/2022 Encounter Details Date Type Department Care Team (Late st Contact Info) Description 05/21/2022 Telephone Division of Surgical Oncology [address] [place] [address] Archie Hugo, , PhD Medication Problem Social History Tobacco Use [...] encounter for today, 05/21/22 as well. Paged commissioning specialist Resident for patient as well. * Telephone Encounter - Lianet Carcamo - 05/21/2022 2:23 PM EDT Pt states she is experiencing problems with bowel prep and has questions. Requesting call back on [phone]. Thanks! documented in this encounter Plan of Treatment Not on file documented as of this encounter Visit Diagnoses Not on filedocumented in this encounter Care Teams Media Reporter Relationship Specialty Start Date End Date Erin Whiteside RN PCP - General 03/19/22 03/09/23 Erin Whiteside, ASL INTERPRETER [address] [place] [address] PCP - General 03/10/23 Rodney Olivas MD Hematology 03/19/22 Archie Hugo MD, PhD Surgeon Surgical Oncology 07/08/22 02/10/24 Cheikh Coelho MD Metal Or Wood Blocker Cardiovascular Disease 10/07/22 Lavern Paul MD, MPH [address] [facility] 10th [place] [address] Oncologist Medical Oncology 03/31/23 Ron Ruano DO [address] [facility] [address] [place] [address] Obstetrics & Gynecology 04/06/23 Dolores Johnson, MOUNTER SMOKING PIPE-ASL INTERPRETER [address] [facility] [address] [place] [address] Printed Circuit Board Assembly Repairer Certified Nurse Practitioner 02/10/24 Vinicius Gomes MD, PhD [address] [place] [address] Oncologist Medical Oncology 02/10/24 Diego Apodaca MD [address] [place] [address] Printed Circuit Board Assembly Repairer Internal Medicine 02/11/24 02/15/24 Diego Apodaca MD [address] [place] [phone] Gastroenterology 02/16/24 documented as of this encounter
--- OUTSIDE RECORDS SUMMARY | 2025-02-15 09:09 | XMS_ITS | Encounter Summary ---
Author Organization [facility] Address [address] [place] [address] Care Team Providers Care Corporate Meeting Planner Name Role Phone Unavailable Primary Care Provider Unavailabl e Encounter Details Date Type Department Care Team (Late st Contact Info) Description 04/27/2023 Abstract [facility]ERT[facility]ING [address] [place] [address] Elayne Bush PA [address] [facility] [address] [place], [facility] Social History Tobacco Use Types Packs/Day Years [...] suspected to have Coronavirus/COVID-19? No / Unsure 04/21/2023 10:33 AM EDT documented as of this encounter Plan of Treatment Upcoming Encounters Date Type Department Care Team (Late st Contact Info) Description 03/08/2025 9:30 AM EDT Office Visit ALBERTO HARDING [address] [facility] [place] [address] Elayne Bush PA [address] [facility] [address] [place], [facility] documented as of this encounter Goals Goal Patient Goal Type Associated Problems Recent Progress Patient-Stated? Author Reminders Care Plan OB Reminders No Open Scheduling, Background documented as of this encounter Visit Diagnoses Not on filedocumented in this encounter Additional Health Concerns Active Problems Noted Date Diagnosed Date OB Reminders 03/15/2023 documented as of this encounter
--- OUTSIDE RECORDS SUMMARY | 2025-02-15 09:09 | XMS_ITS | Encounter Summary ---
Author Organization [facility] Address [address] [place] [address] Care Team Providers Care Clinical Project Coordinator Name Role Phone Unavailable Primary Care Provider Unavailabl e Encounter Details Date Type Department Care Team (Late st Contact Info) Description 06/09/2023 Abstract ALBERTO HARDING [address] [place] [address] Quin Snyder LPN [address] [facility] [facility] [address] [place] [address] Social History Tobacco Use Types Packs/Day Years [...] suspected to have Coronavirus/COVID-19? No / Unsure 05/26/2023 9:17 AM EST documented as of this encounter Plan of Treatment Upcoming Encounters Date Type Department Care Team (Late st Contact Info) Description 03/08/2025 9:30 AM EDT Office Visit ALBERTO HARDING [address] [place] [address] Elayne Bush PA [address] [facility] [facility] [address] [place], [place] [phone] documented as of this encounter Goals Goal Patient Goal Type Associated Problems Recent Progress Patient-Stated? Author Reminders Care Plan OB Reminders No Open Scheduling, Background documented as of this encounter Visit Diagnoses Not on filedocumented in this encounter Additional Health Concerns Active Problems Noted Date Diagnosed Date OB Reminders 03/15/2023 documented as of this encounter
--- OUTSIDE RECORDS SUMMARY | 2025-02-15 09:09 | XMS_ITS | Clinical Summary ---
Author Organization [facility] Address [address] [place] [address] [place] [address] Care Team Providers Care Director Of Archives Name Role Phone Rodney Olivas MD Unavailable Cheikh Coelho MD Unavailable Unavailable Erin Whiteside EMERGING SOLUTIONS EXECUTIVE Primary Care Provider + Lavern Paul MD, MPH Unavailable [phone] Ron Ruano DO Unavailable [phone] Dolores Johnson APRN-[facility] Unavailable [phone] Vinicius Gomes MD, PhD Unavailable [phone] Diego Apodaca MD Unavailable [phone] Allergies Active Allergy Reactions Criticality Noted Date [...] Other (carcinoid syndrome). 90 mL 4 Active Multiple Vitamins-Mineral s (Multivitamin w/ minerals, THERAPEUTIC-M,) tablet Take 1 tablet by mouth daily. Active Ibuprofen 400 MG tablet Take 1 tablet by mouth every 6 hours as needed for Mild Pain. Active Acetaminophen 325 MG tablet Take 2 tablets by mouth every 4 hours. Active Ondansetron 4 MG tablet Take 1 tablet by mouth every 8 hours as needed for Nausea / Vomiting. 60 tablet 5 07/07/20 25 Active Galcanezumab-gnl m (Emgality) 120 MG/ML Solution Auto-injectorInd ications:Chronic migraine without aura without status migrainosus, not [...] within 24 hours. 8 tablet 5 Active hydrOXYzine pamoate 50 MG capsule Take 1 capsule by mouth 3 times daily as needed for Anxiety. Active Lanreotide 60 MG/0.2ML Solution Inject 1 Syringe under the skin every 28 days. 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 Staging:Pathologic stage from 05/22/2022:Stage IVC(TX, N1, M1b) - Unsigned Encounters Date Type Department Care Team Description 02/07/2025 Telephone Division of Medical Oncology [address] [phone] Geneva Moncada, RUPERT Outside Medical Records Request 02/06/2025 Telephone Division of Medical Oncology [address] [address] Geneva Moncada, youth manager Follow-up; Appointment; Labs Only 01/31/2025 Telephone Division of Medical Oncology [address] [address] Yina Amaya RN Post-Visit Follow Up 01/30/2025 2:30 PM EDT Telemedicine Division of Medical Oncology [address] [address] Christopher Moralez APRN-CNP Diarrhea, unspecified type (Primary Dx) 01/29/2025 Telephone Division of Endocrinology [address] [place] [phone] Christopher Moralez APRN-CNP Cancellation 01/29/2025 Telephone Division of Medical Oncology [address] [facility] 10th [place] [phone] Any Medrano RN Appointment 01/25/2025 Results Follow-Up Division of Medical Oncology [address] [facility] 10th [place] [phone] Moralez APRN-CNP CT ABDOMEN/PELVIS WITH AND WITHOUT CONTRAST 01/22/2025 9:49 AM EDT - 01/22/2025 11:59 PM EDT Hospital Encounter Imaging at [facility] [address] [place] [phone] Christopher Moralez APRN-CNP Discharge Disposition: Home or Self Care 01/22/2025 9:30 AM EDT Clinical Support Encounter Clinical Lab [place] [id number] [facility] 1st [place] [phone] Christopher Moralez APRN-CNP Ferrin, Sarah B, APRN-CNP Moser, Michelle, RN Primary malignant neuroendocrine tumor of appendix 01/21/2025 Results Follow-Up [facility] [address] [phone] Roge Yanes MD MRI BRAIN (OUTSIDE IMAGE), MRI BRAIN (OUTSIDE IMAGE) 12/28/2024 Medication Management [facility] [address] [place] [address] Roge Yanes MD 12/25/2024 Results Follow-Up Rheumatology [place] [address] Shannan Pleitez MD URINE PROTEIN/CREA RATIO, RANDOM, CYCLIC CITRULLINATE PEPTIDE AB, RHEUMATOID FACTOR, Additional followed-up results: 9 12/21/2024 9:00 AM EDT Office Visit Rheumatology [place] [phone] Shannan Pleitez MD 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 No prior head image. Obtain updated brain images.) from Last 3 Months Family History Medical [...] Sign Reading Time Taken Comments Blood Pressure 136/86 01/22/2025 9:58 AM EDT Pulse 88 12/21/2024 8:59 AM [...] 11/09/2024 2:54 PM EDT Plan of Treatment Health Maintenance Due Date Last Done Comments HEPATITIS C VIRUS SCREENING 1997 HPV VACCINE (2 - Risk 3-dose series) 09/11/201007/20 HIV SCREENING DISCUSSION 2012 PNEUMOCOCCAL VACCINE SERIES (1 of 2 - PCV) 2016 ZOSTER (SHINGLES) VACCINE (1 of 2) 2016 CERVICAL CANCER SCREENING DISCUSSION 2018 TETANUS 08/14/2020 08/14/2010 COVID-19 VACCINE (2 - Pfizer risk series) 07/10/2021 06/19/2021 INFLUENZA VACCINE (#1) 2025 04/28/2021 HEP B VACCINE Completed 09/20/2000, 02/1998, 1997 HPV VACCINE ADOL Discontinued 08/14/2010 TDAP (ADULT) Completed 08/14/2010 Procedures Procedure Name Priority Date/Time Associated Diagnosis Comments CT ABDOMEN/PELVIS WITH AND WITHOUT CONTRAST Routine 01/22/2025 10:54 AM EDT Primary malignant neuroendocrine tumor of appendix CBC AND ELECTRONIC DIFF Routine 01/22/2025 9:41 AM EDT Primary malignant neuroendocrine tumor of appendix CBC, EDIF, PLATELET Routine 01/22/2025 9 :41 AM EDT Primary malignant neuroendocrine tumor of appendix COMPREHENSIVE METABOLIC PANEL Routine 01/22/2025 9:41 AM EDT Primary malignant neuroendocrine tumor of appendix LACTATE DEHYDROGENASE Routine 01/22/2025 9:41 AM EDT Primary malignant neuroendocrine tumor of appendix CHROMOGRANIN A Routine 01/22/2025 9:41 AM EDT Primary malignant neuroendocrine tumor of appendix MRI BRAIN (OUTSIDE IMAGE) Routine 01/01/2025 MRI BRAIN (OUTSIDE IMAGE) Routine 01/01/2025 EXTRA MICRO Routine 12/21/2024 9:47 AM EDT [...] positive from Last 3 Months Results * CT ABDOMEN/PELVIS WITH AND WITHOUT CONTRAST (01/22/2025 10:54 AM EDT) Anatomical Region Laterality Modality Abdomen, Pelvis Computed Tomogra phy 01/23/2025 10:2 6 PM EDT Impressions 01/23/2025 10:26 PM EDT IMPRESSION: 1. No definite evidence of metastatic disease in the abdomen or pelvis. 2. There is diffuse mild to moderate wall thickening of the colon, consistent with colitis. 3. There is a stable 1.9 cm hypodense lesion in the region of the left adnexa/left uterine fundus which likely represents an ovarian lesion, perhaps a cyst, rather than a uterine fibroid. Suggest pelvic ultrasound for further evaluation. 4. Stable 5 mm subpleural nodule in the left lower lobe which demonstrates long-term stability, likely benign. Sabiha Grace M.D. This report has been electronically signed [...] error, please notify the sender immediately at [phone] and permanently delete the original report and destroy any copies or printouts. Narrative 01/23/2025 10:26 PM EDT EXAM: CT ABDOMEN/PELVIS WITH AND WITHOUT CONTRAST COMPARISON: CT abdomen and pelvis 09/18/2024. CT abdomen and pelvis 02/07/2024. CLINICAL INDICATIONS: ongoing NET surveillance ADDITIONAL INFORMATION (per Vision Radiologist): Low-grade appendiceal mucinous neoplasm. TECHNIQUE: CT scanning was performed through the abdomen and pelvis prior to and following the administration of intravenous contrast. PROTOCOL: Initially, images were obtained through the abdomen without IV contrast. Then, after the administration of IV contrast, images were obtained through the abdomen in the arterial phase and through the abdomen and pelvis in the portal venous phase. FINDINGS: LOWER THORAX: There is a stable 5 mm subpleural nodule in the left lower lobe. This has been stable compared to CTs dating back to 02/07/2024. LIVER: The liver appears unremarkable. BILIARY: Status post cholecystectomy. PANCREAS: The pancreas appears unremarkable. SPLEEN: The spleen appears unremarkable. ADRENAL GLANDS: The adrenal glands appear unremarkable. KIDNEYS/URETERS: The kidneys appear unremarkable. PELVIC ORGANS/BLADDER: The bladder appears unremarkable. There is a 1.9 cm hypodense lesion in the region of the left adnexa/left uterine fundus which appears similar to the previous exam. This may likely represents an ovarian lesion, perhaps a cyst, rather than a uterine fibroid. GI TRACT: Status post right hemicolectomy. There is mild to moderate wall thickening along the remaining colon diffusely. PERITONEUM: No free fluid or free air. LYMPH NODES: No significant lymphadenopathy. VESSELS: No abdominal aortic aneurysm. BONES AND SOFT TISSUES: No suspicious osseous lesions are identified. Procedure Note Sabiha Grace MD - 01/23/2025 EXAM: CT ABDOMEN/PELVIS WITH AND WITHOUT CONTRAST COMPARISON: CT abdomen and pelvis 09/18/2024. CT abdomen and pelvis02/07/2024. CLINICAL INDICATIONS: ongoing NET surveillance ADDITIONAL INFORMATION (per [employer] Radiologist): Low-grade appendiceal mucinous neoplasm. TECHNIQUE: CT scanning was performed through the abdomen and pelvis priorto and following the administration of intravenous contrast. PROTOCOL: Initially, images were obtained through the abdomen without IV contrast. Then, after the administration of IV contrast, images wereobtained through the abdomen in the arterial phase and through the abdomen andpelvis in the portal venous phase. FINDINGS: LOWER THORAX: There is a stable 5 mm subpleural nodule in the left lowerlobe. This has been stable compared to CTs dating back to 02/07/2024. LIVER: The liver appears unremarkable. BILIARY: Status post cholecystectomy. PANCREAS: The pancreas appears unremarkable. SPLEEN: The spleen appears unremarkable. ADRENAL GLANDS: The adrenal glands appear unremarkable. KIDNEYS/URETERS: The kidneys appear unremarkable. PELVIC ORGANS/BLADDER: The bladder appears unremarkable. There is a 1.9cm hypodense lesion in the region of the left adnexa/left uterine funduswhich appears similar to the previous exam. This may likely represents anovarian lesion, perhaps a cyst, rather than a uterine fibroid. GI TRACT: Status post right hemicolectomy. There is mild to moderatewall thickening along the remaining colon diffusely. PERITONEUM: No free fluid or free air. LYMPH NODES: No significant lymphadenopathy. VESSELS: No abdominal aortic aneurysm. BONES AND SOFT TISSUES: No suspicious osseous lesions are identified. IMPRESSION IMPRESSION: 1. No definite evidence of metastatic disease in the abdomen or pelvis. 2. There is diffuse mild to moderate wall thickening of the colon,consistent with colitis. 3. There is a stable 1.9 cm hypodense lesion in the region of the left adnexa/left uterine fundus which likely represents an ovarian lesion,perhaps a cyst, rather than a uterine fibroid. Suggest pelvic ultrasound forfurther evaluation. 4. Stable 5 mm subpleural nodule in the left lower lobe whichdemonstrates long-term stability, likely benign. Sabiha Grace M.D. This report has been electronically signed [...] in error, please notify the sender immediatelyat [phone] and permanently delete the original report and destroy anycopies or printouts. Any Hayes MANAGING CONSULTANT-EMERGING SOLUTIONS EXECUTIVE CT ORDERABLES Final Re sult * CBC AND ELECTRONIC DIFF (01/22/2025 9:41 AM EDT) Only the most recent of2 resultswithin the time period is included. WBC Count 6.65 3.99 - 11.19 K/uL 01/22/2025 9:47 AM EDT [facility] RBC Count 4.76 3.91 - 5.04 M/uL 01/22/2025 9:47 AM EDT [facility] Hemoglobin 13.4 11.4 - 15.2 g/dL 01/22/2025 9:47 AM EDT [facility] Hematocrit 40.8 34.9 - 44.3 % 01/22/2025 9:47 AM [facility] Mean Cell Volume 85.7 79.6 - 97.7 fL 01/22/2025 9:47 AM [facility] Mean Cell Hgb 28.2 25.9 - 33.9 pg 01/22/2025 9:47 AM [facility] Mean Cell Hgb Conc 32.8 31.4 - 35.9 g/dL 01/22/2025 9:47 AM [facility] RBC Distribution 12.3 10.8 - 14.9 % 01/22/2025 9:47 AM [facility] Platelet Count 337 150 - 393 K/uL 01/22/2025 9:47 AM [facility] Mean Platelet Volume 9.5 8.5 - 12.2 fL 01/22/2025 9:47 AM [facility] DIFF STATUS Electronic Differential 01/22/2025 9:47 AM [facility] Segs + Bands Auto 57.4 % 01/22/2025 9:47 AM [facility] Immature Grans % 0.3 % 01/22/2025 9:47 AM [facility] Lymphocyte % Auto 31.0 % 01/22/2025 9:47 AM [facility] Monocyte % Auto 6.9 % 9:47 AM [facility] Eosinophil % Auto 3.6 % 01/22/2025 9:47 AM [facility] Basophil % Auto 0.8 % 9:47 AM [facility] Nucleated RBC 0.0 <=0.2 /100 WBC 01/22/2025 9:47 AM [facility] Segs + Bands,Absolute Auto 3.82 1.64 - 7.28 K/uL 01/22/2025 9:47 AM [facility] Immature Grans Absolute <0.04 <=0.08 K/uL 01/22/2025 9:47 AM [facility] Abs Lymph Auto 2.06 1.16 - 3.51 K/uL 01/22/2025 9:47 AM EDT [facility] Abs Larue Auto 0.46 0.22 - 0.87 K/uL 01/22/2025 9:47 AM EDT [facility] Abs Eos Auto 0.24 0.00 - 0.42 K/uL 01/22/2025 9:47 AM EDT [facility] Abs Baso Auto 0.05 0.00 - 0.15 K/uL 01/22/2025 9:47 AM EDT [facility] Blood Venipuncture / Unknown 01/22/2025 9:41 AM EDT 01/22/2025 9:45 AM EDT Any Hayes MANAGING CONSULTANT-EMERGING SOLUTIONS EXECUTIVE HEMATOLOGY ORDERABLES Fi nal Result [facility] [address] [place] [address] * CHROMOGRANIN A (01/22/2025 9:41 AM EDT) Chromogranin A 29 <93 ng/mL 01/24/2025 12:37 PM EDT [facility] Comment: ADDITIONAL INFORMATION The testing method is a homogeneous time-resolved immunofluorescent assay manufactured by [employer] and performed on the [employer] Kryptor Compact Plus. Values obtained with different [...] examination and other findings. Test Performed by: [address] [address] Police Patrol Officer: Jami Sher Ph.D.; CLIA# [id number] Blood Venipuncture / Unknown 01/22/2025 9:41 AM EDT 01/22/2025 9:45 AM EDT Any Brett Abigail MANAGING CONSULTANT-EMERGING SOLUTIONS EXECUTIVE CHEMISTRY ORDERABLES Fin al Result [facility] [address] [place] [address], * LACTATE DEHYDROGENASE (01/22/2025 9:41 AM EDT) Pathologist [facility] LD Total 113 100 - 190 U/L 01/22/2025 10:02 AM EDT [facility] Blood Venipuncture / Unknown 01/22/2025 9:41 AM EDT 01/22/2025 9:45 AM EDT [facility] Abigail MANAGING CONSULTANT-EMERGING SOLUTIONS EXECUTIVE CHEMISTRY ORDERABLES Fin al Result [facility] [address] [place] [address] * COMPREHENSIVE METABOLIC PANEL (01/22/2025 9:41 AM EDT) Only the most recent of2 resultswithin the time period is included. Sodium 139 135 - 145 mmol/L 01/22/2025 10:02 AM EDT [facility] Potassium 4.1 3.5 - 5.0 mmol/L 01/22/2025 10:02 AM EDT [facility] Chloride 104 98 - 108 mmol/L 01/22/2025 10:02 AM EDT [facility] BUN 10 7 - 25 mg/dL 01/22/2025 10:02 AM EDT [facility] Creatinine 0.72 0.50 - 1.20 mg/dL 01/22/2025 10:02 AM T [facility] Glucose 90 Nonfasting : 70-179 mg/dL; Fastin-99 mg/dL 01/22/2025 10:02 AM EDT [facility] Bilirubin Total 0.5 <1.5 mg/dL 10:02 AM [facility] Albumin 4.8 3.5 - 5.0 g/dL 01/22/2025 10:02 AM [facility] Total Protein 7.5 6.4 - 8.3 g/dL 01/22/2025 10:02 AM [facility] AST 13 10 - 39 U/L 01/22/2025 10:02 AM [facility] ALP 52 32 - 126 U/L 01/22/2025 10:02 AM [facility] Calcium 9.6 8.6 - 10.5 mg/dL 01/22/2025 10:02 AM [facility] CO2 27 21 - 31 mmol/L 01/22/2025 10:02 AM [facility] ALT 13 9 - 48 U/L 01/22/2025 10:02 AM [facility] Bun/Crea Ratio 14 01/22/2025 10:02 AM [facility] Osmolality (Calculated) 289 278 - 305 mOsm/kg 01/22/2025 10:02 AM [facility] Anion Gap 12 7 - 17 mmol/L 01/22/2025 10:02 AM [facility] eGFR, CKD-EPI, Female >90 >=60 mL/min/1.7 3m2 01/22/2025 10:02 AM [facility] Comment:Reported eGFR is bas ed on the CKD-EPI 2020 equation using creatinine, age, and sex. Blood Venipuncture / Unknown 01/22/2025 9:41 AM EDT 01/22/2025 9:45 AM EDT us Any Hayes MANAGING CONSULTANT-EMERGING SOLUTIONS EXECUTIVE CHEMISTRY ORDERABLES Fin al Result [facility] [address] [place] [id number] * MRI BRAIN (OUTSIDE IMAGE) (01/01/2025) 01/01/2025 Narrative RADIOLOGY - 01/16/2025 5:43 PM EDT Outside Imaging Study for Support of Clinical Care. This study was sent from an outside facility to [facility] for support of clinical care of the patient within the [facility]. Procedure Note [facility] Outside Orders, External Images - 01/16/2025 Outside Imaging Study for Support of Clinical Care. This study was sentfrom an outside facility to [facility] for support of clinical care of thepatient within the [facility]. us Roge Yanes MD MR ORDERABLES Final Result Performing Organization Address [facility] Co de Phone Number RADIOLOGY * MRI BRAIN (OUTSIDE IMAGE) (01/01/2025) 01/01/2025 Narrative RADIOLOGY - 01/16/2025 5:42 PM EDT Outside Imaging Study for Support of Clinical Care. This study was sent from an outside facility to [facility] for support of clinical care of the patient within the [facility]. Procedure Note [facility] Outside Orders, External Images - 01/16/2025 Outside Imaging Study for Support of Clinical Care. This study was sentfrom an outside facility to [facility] for support of clinical care of thepatient within the [facility]. us Roge Yanes MD MR ORDERABLES Final Result Performing Organization Address City/[facility] Co de Phone Number RADIOLOGY * URINALYSIS REFLEX TO CULTURE PERFORMABLE (12/21/2024 9:47 AM EDT) Color Yellow Yellow 12/21/2024 11:10 AM EDT [facility] Appearance Urine Clear Clear 12/22/19 25 11:10 AM EDT [facility] Glucose Urine Negative Negative 12/21/2024 11:10 AM EDT [facility] Ketones Urine Negative Negative 12/21/2024 11:10 AM EDT [facility] Specific [place] Urine 1.021 1.001 - 1.035 12/21/2024 11:10 AM EDT [facility] Blood Urine Negative Negative 12/21/2024 11:10 AM EDT [facility] pH Urine 5.0 5.0 - 7.0 12/21/2024 11:10 AM EDT [facility] Protein Urine Negative Negative 12/21/2024 11:10 AM EDT [facility] Urobilinogen Urine 0.2 E.U./dL 0.2 E.U/dL, 1.0 E.U/dL 12/21/2024 11:10 AM EDT [facility] Nitrites Urine Negative Negative 12/21/2024 11:10 AM EDT [facility] Leukocyte Esterase Negative Negative 12/21/2024 11:10 AM EDT [facility] RBC Urine 0-2 0 - 2 /HPF 12/21/2024 11:10 AM EDT [facility] WBC Urine 0 - 5 0 - 5 /HPF 12/21/2024 11:10 AM EDT [facility] Squamous/Epithel ial Cells, Urine 3-5/hpf = 1+ 0-2/hpf, 3-5/hpf = 1+ 12/21/2024 11:10 AM EDT [facility] Bacteria ABSENT ABSENT 12/21/2024 11:10 AM EDT [facility] Urine URINE SPECIMEN OBTAINED BY CLEAN CATCH PROCEDURE / Unknown 12/21/2024 9:47 AM EDT 12/21/2024 9:47 AM EDT us Shannan Pleitez MD BODY FLUIDS & STOOLS ORDERABLES Final Result [facility] [address] [place] [address] * EXTRA MICRO (12/21/2024 9:47 AM EDT) Urine URINE SPECIMEN OBTAINED BY CLEAN CATCH PROCEDURE / Unknown 12/21/2024 9:47 AM EDT 12/21/2024 9:47 AM EDT us Shannan Pleitez MD BODY FLUIDS & STOOLS ORDERABLES Final Result Performing Organization Address [facility] Co de Phone Number [facility] [address] [address] * URINE PROTEIN/CREA RATIO, RANDOM (12/21/2024 9:47 AM EDT) Urine Creatinine 134.51 mg/dL 12/21/2024 11:29 AM EDT [facility] Urine Protein 6 mg/dL 12/21/2024 11:29 AM EDT [facility] Prot/Creat Ratio 0.045 mg/mg 12/21/2024 11:29 AM EDT [facility] Urine 12/21/2024 9:47 AM EDT 12/21/2024 9:47 AM EDT us Shannan Pleitez MD BODY FLUIDS & STOOLS ORDERABLES Final Result Performing Organization Address [facility] de Phone Number [facility] [address] [address] * C REACTIVE PROTEIN (12/21/2024 9:44 AM EDT) C Reactive Protein 0.60 <10.00 mg/L 12/21/2024 11:30 AM EDT [facility] Blood Venipuncture / Unknown 12/21/2024 9:44 AM EDT 12/21/2024 9:45 AM EDT us Shannan Pleitez MD IMMUNOLOGY ORDERABLES Final Resu lt Performing Organization Address [facility] de Phone Number [facility] [address] [address] * C3,C4 (12/21/2024 9:44 AM EDT) C3 155 87 - 200 mg/dL 12/21/2024 11:30 AM EDT [facility] C4 38 18 - 52 mg/dL 12/21/2024 11:30 AM EDT [facility] Blood Venipuncture / Unknown 12/21/2024 9:44 AM EDT 12/21/2024 9:45 AM EDT us Shannan Pleitez MD IMMUNOLOGY ORDERABLES Final Resu lt Performing Organization Address City/[facility]/ZIP Co de Phone Number [facility] [address] [place] [address] * CYCLIC CITRULLINATE PEPTIDE AB (12/21/2024 9:44 AM EDT) Cyclic Citrullinated Peptide Ab <0.54 <5.00 U/mL 12/21/2024 2:49 PM EDT [facility] Blood Venipuncture / Unknown 12/21/2024 9:44 AM EDT 12/21/2024 9:45 AM EDT us Shannan Pleitez MD ENDOCRINOLOGY Final Result Performing Organization Address [facility] de Phone Number [facility] [address] [address] * ALDOLASE (12/21/2024 9:44 AM EDT) Aldolase 2.9 <7.7 U/L 12/24/2024 10:17 AM EDT [facility] Comment: ADDITIONAL INFORMATION This test has been modified from the wet pan operator's instructions. Its performance characteristics were determined by [facility] in a manner consistent with CLIA requirements. This test has not been cleared or approved by the U.S. Food and Drug Administration. Test Performed by: [facility] - [address] [address] Police Patrol Officer: Jami Sher Ph.D.; CLIA# [id number] Blood Venipuncture / Unknown 12/21/2024 9:44 AM EDT 12/21/2024 9:45 AM EDT us Shannan Pleitez MD CHEMISTRY ORDERABLES Final Resul t [facility] [address] [place] [address], [place] [phone] * SEDIMENTATION RATE, AUTOMATED (12/21/2024 9:44 AM EDT) ESR Westergren 10 <20 mm/hr 12/21/2024 11:44 AM EDT [facility] [facility] Blood Venipuncture / Unknown 12/21/2024 9:44 AM EDT 12/21/2024 9:45 AM EDT us Shannan Pleitez MD HEMATOLOGY ORDERABLES Final Resu lt [facility] [address] [address] * RHEUMATOID FACTOR (12/21/2024 9:44 AM EDT) Rheumatoid Factor <10 <=14 IU/mL 12/21/2024 11:33 AM EDT [facility] Blood Venipuncture / Unknown 12/21/2024 9:44 AM EDT 12/21/2024 9:45 AM EDT us Shannan Pleitez MD IMMUNOLOGY ORDERABLES Final Resu lt Performing Organization Address City/[facility]/ZIP Co de Phone Number [facility] [address] [address] * CK (12/21/2024 9:44 AM EDT) Creatine Kinase 46 30 - 184 U/L 12/21/2024 11:29 AM EDT [facility] Blood Venipuncture / Unknown 12/21/2024 9:44 AM EDT 12/21/2024 9:45 AM EDT us Shannan Pleitez MD CHEMISTRY ORDERABLES Final Resul t [facility] [address] [place] [address] from Last 3 Months Insurance [employer] Care Teams Director Of Archives Relationship Specialty Start Date End Date Erin Whiteside EMERGING SOLUTIONS EXECUTIVE [address] [facility] [place] [address] PCP - General 03/10/23 Rodney Olivas MD Hematology 03/19/22 Cheikh Coelho MD Supervisor Powdered Sugar Cardiovascular Disease 10/07/22 Lavern Paul MD, MPH [address] [facility] 10th [place] [address] Oncologist Medical Oncology 03/31/23 Ron Ruano DO [address] [facility] [address] [place] [phone] Obstetrics & Gynecology 04/06/23 Dolores Johnson APRN-EMERGING SOLUTIONS EXECUTIVE [address] [facility] [address] [place] [address] Hanger Off Certified Nurse Practitioner 02/10/24 Vinicius Gomes MD, PhD [address] [facility] 8th [place] [address] Oncologist Medical Oncology 02/10/24 Diego Apodaca MD [address] [place], [place] [address] [place] [address] Gastroenterology 02/16/24
--- OUTSIDE RECORDS SUMMARY | 2025-02-15 09:09 | XMS_ITS | Clinical Summary ---
Author Organization [facility] Address [id number] [address] [place] [address] Care Team Providers Care Machine Rough Rounder Name Role Phone Erin Whiteside APRN-RN CLINICAL COORDINATOR Primary Care Provider Allergies Active Allergy Reactions [...] declined 02/18/2022 How often do you attend quaker or yazidi serv ices? Never 02/18/2022 Do you belong to any clubs o r organizations such as quaker groups, unions, fraternal or athletic groups, or [...] Answer Date Recorded Total Score 16 02/18/2022 [facility] [place] of Occupat ional Health - Occupational Stress [...] Recorded Do you need help finding a [employer] career center and/or a training program? No [...] Medical Devices Not on file Insurance RT [address] [place] [id number] [employer] Care Teams Machine Rough Rounder Relationship Specialty Start Date End Date Erin Whiteside, UTILIZATION MANAGEMENT MANAGER-RN CLINICAL COORDINATOR [address] [facility], [place] [address] PCP - General Family Medicine 02/11/22
--- OUTSIDE RECORDS SUMMARY | 2025-02-15 09:09 | XMS_ITS | Encounter Summary ---
Author Organization [facility] Address [address] [place] [address] Care Team Providers Care Mold Carrier Name Role Phone Unavailable Primary Care Provider Unavailabl e Encounter Details Date Type Department Care Team (Late st Contact Info) Description 05/19/2023 External Result Encounter [facility] [address] [facility] [place] [address] Mckenzie Ruano DO [address] [facility] [address] Raghu Marquez, [facility] Social History Tobacco Use Types Packs/Day Years [...] suspected to have Coronavirus/COVID-19? No / Unsure 05/19/2023 8:37 AM EDT documented as of this encounter Plan of Treatment Upcoming Encounters Date Type Department Care Team (Late st Contact Info) Description 03/08/2025 9:30 AM EDT Office Visit [facility] [address] [facility] [place] [address] Elayne Bush PA [address] [facility] [address] [place], [facility] documented as of this encounter Goals Goal Patient Goal Type Associated Problems Recent Progress Patient-Stated? Author Reminders Care Plan OB Reminders No Open Scheduling, Background documented as of this encounter Procedures Procedure Name Priority Date/Time Associated Diagnosis Comments US OB 14+ WEEKS ANATOMY SCAN 05/19/2023 2:17 PM EDT documented in this encounter Results * US OB 14+ weeks anatomy scan (05/19/2023 2:17 PM EDT) Anatomical Region Laterality Modality Body Ultrasound 05/19/2023 2:17 PM EDT Narrative 05/19/2023 2:17 PM EDT THIS EXAM WAS PERFORMED AT [facility] REPORT (Signed Final 05/19/2023 14:17) PATIENT INFO: ID #: [id number] : [birth year] (28 yrs)(F) Name: ZAINAB MENG Visit Date: 05/19/2023 10:48 KRYLING PERFORMED BY: Attending: Tamy Gomes MD, [facility] Performed By: Senia Juan RDMS Referred By: Mckenzie Ruano DO Ref. Address: [address] [place] [address] Dr. Krishnamurthy [facility] [address] Location: [facility] [place] SERVICE(S) PROVIDED: Comprehensive Anatomic Survey 10200 OB Transvaginal 18131 INDICATIONS: Screening for anatomic survey Z36.89 Screening for cervical length Z36.86 Supervision of other high risk , O09.90 antepartum. hx of abdominal surgery Obesity in , antepartum O99.210 VITAL SIGNS: Weight (lb): 165.2 Height: 5'1 BMI: 31.21 EVALUATION: Num Of Fetuses: 1 Heart 158 Rate(bpm): Cardiac Activity: Present appears normal Presentation: Cephalic Placenta: Posterior, away from cervical os P. Cord Insertion: Eccentric (>2cm from edge) Amniotic Fluid KARMA FV: Subjectively within normal limits BIOMETRY: BPD: 43.9 mm G.Age: 19w 2d 17 % OFD: 62.7 mm HC: 173.6 mm G.Age: 19w 6d 31 % AC: 162.6 mm G.Age: 21w 2d 81 % FL: 30.8 mm G.Age: 19w 4d 22 % HUM: 26.4 mm G.Age: 18w 2d < 5 % CER: 21.3 mm G.Age: 20w 1d 64 % NFT: 3.58 mm NB: 5.71 mm 19 % > 1 MoM LV: 6.4 mm CM: 4.7 mm TIB: 26.6 mm G.Age: 19w 4d 41 % CI: 70.0 % 70 - 86 FL/HC: 17.7 % 16.8 - 19.8 HC/AC: 1.07 1.09 - 1.39 FL/BPD: 70.2 % FL/AC: 18.9 % - 24 Est. FW: 352 g 0 lb 12 oz 61 % m OB HISTORY: : 1 GESTATIONAL AGE: LMP: 20w 1d Date: 12/29/22 AMY: 10/05/23 U/S Today: 20w 0d AMY: 10/06/23 Best: 20w 1d Det. By: LMP (12/29/22) AMY: 10/05/23 TARGETED ANATOMY: Central Nervous System Calvarium/Cranial V.: Appears normal Intracranial Beth: Appears normal Cavum: Appears normal Lateral Ventricles: Appears normal Choroid Plexus: Appears normal Cereb./Vermis: Appears normal Cisterna Magna: Appears normal Midline Falx: Appears Normal Spine Cervical: Not well visualized Thoracic: Not well visualized Lumbar: Not well visualized Sacral: Not well visualized Shape/Curvature: Not well visualized Head/Neck Face: Appears normal Lips: Appears normal Neck: Appears normal Nuchal Fold: Appears normal Nasal Bone: Present Profile: Appears normal Orbits/Eyes: Appears normal Mandible: Appears Normal Maxilla: Appears normal Thorax Thoracic Contour: Appears normal Lungs: Appears normal 4 Chamber View: Not well visualized Cardiac Activity: Appears Normal Cardiac Rhythm: Normal Cardiac Situs: Appears normal Rt Outflow Tract: Appears normal Lt Outflow Tract: Not well visualized Aortic Arch: Could not document Ductal Arch: Appears normal SVC: Could not document Interventr. Septum: Could not document Cardiac [place]: Appears normal Diaphragm: Appears normal 3 Vessel View: Appears normal 3 V Trachea View: Not well visualized IVC: Could not document Crossing: Not well visualized Abdomen Ventral Wall: Appears normal Cord Insertion: Appears normal Situs: Appears normal Stomach: Appears normal Lt Kidney: Appears normal Rt Kidney: Appears normal Bladder: Appears normal Bowel: Appears normal Extremities Lt Humerus: Appears normal Rt Humerus: Appears normal Lt Forearm: Appears normal Rt Forearm: Appears normal Lt Hand: Appears normal Rt Hand: Appears normal Lt Femur: Appears normal Rt Femur: Appears normal Lt Lower Leg: Appears normal Rt Lower Leg: Appears normal Lt Foot: Appears normal Rt Foot: Appears normal Other Umbilical Cord: Appears normal Masses: None visualized Genitalia: Female CERVIX UTERUS ADNEXA: Cervix Length: 4.2 cm. Appears closed, without funnelling Uterus Gravid uterus Right Ovary Not visualized Left Ovary Not visualized Cul De Sac No fluid seen Adnexa No adnexal masses identified COMMENTS: 1. Ultrasound is not diagnostic for chromosomal abnormalities, will not detect all structural abnormalities, and is not diagnostic for genetic disorders even if multiple exams are performed during a given . 2. In addition to the trans abdominal approach, a trans vaginal ultrasound was also performed to optimize the visualization of the lower uterine segment and the cervix. 3. anatomic survey is incomplete due to position. 4. Images of optimal diagnostic quality could not be obtained. Tamy Gomes MD, [facility] Electronically Signed Final Report 05/19/2023 14:17 IMPRESSION: 1. Single intrauterine size consistent with dates. 2. Transvaginal Cervical Length = 4.2 cm. RECOMMENDATIONS: 1. Please see [facility] consultation documentation from today's encounter. 2. Patient is scheduled in 4 weeks to complete the anatomic survey. 3. Subsequent follow up or other follow up as clinically determined by primary OB provider unless otherwise specified by [facility]. 4. Results forwarded to ordering provider so they can follow up with the patient as necessary. The copy-to physician of this order is MCKENZIE Cao The ordering physician of this order is TAMY Ortega Procedure Note Radiology, Radiologist, - 05/19/2023 [facility] REPORT (Signed Final 05/19/2023 14:17) PATIENT INFO: ID #: [id number] : [birth year] (28 yrs)(F) Name: ZAINAB MENG Visit Date: 05/19/2023 10:48 KRYLING PERFORMED BY: Attending: Tamy Gomes MD, [facility] Performed By: Senia Juan RDMS Referred By: Mckenzie Ruano DO Ref. Address: [address] [place] [address] Dr. Raghu [facility] [place] [address] Location: [facility] [place] SERVICE(S) PROVIDED: Comprehensive Anatomic Survey 44312 OB Transvaginal 64735 INDICATIONS: Screening for anatomic survey Z36.89 Screening for cervical length Z36.86 Supervision of other high risk , O09.90 antepartum. hx of abdominal surgery Obesity in , antepartum O99.210 VITAL SIGNS: Weight (lb): 165.2 Height: 5'1 BMI: 31.21 EVALUATION: Num Of Fetuses: 1 Heart 158 Rate(bpm): Cardiac Activity: Present appears normal Presentation: Cephalic Placenta: Posterior, away from cervical os P. Cord Insertion: Eccentric (>2cm from edge) Amniotic Fluid KARMA FV: Subjectively within normal limits BIOMETRY: BPD: 43.9 mm G.Age: 19w 2d 17 % OFD: 62.7 mm HC: 173.6 mm G.Age: 19w 6d 31 % AC: 162.6 mm G.Age: 21w 2d 81 % FL: 30.8 mm G.Age: 19w 4d 22 % HUM: 26.4 mm G.Age: 18w 2d < 5 % CER: 21.3 mm G.Age: 20w 1d 64 % NFT: 3.58 mm NB: 5.71 mm 19 % > 1 MoM LV: 6.4 mm CM: 4.7 mm TIB: 26.6 mm G.Age: 19w 4d 41 % CI: 70.0 % 70 - 86 FL/HC: 17.7 % 16.8 - 19.8 HC/AC: 1.07 1.09 - 1.39 FL/BPD: 70.2 % FL/AC: 18.9 % 20 - 24 Est. FW: 352 g 0 lb 12 oz 61 % m OB HISTORY: : 1 GESTATIONAL AGE: LMP: 20w 1d Date: 12/29/22 AMY: 10/05/23 U/S Today: 20w 0d AMY: 10/06/23 Best: 20w 1d Det. By: LMP (12/29/22) AMY: 10/05/23 TARGETED ANATOMY: Central Nervous System Calvarium/Cranial V.: Appears normal Intracranial Beth: Appears normal Cavum: Appears normal Lateral Ventricles: Appears normal Choroid Plexus: Appears normal Cereb./Vermis: Appears normal Cisterna Magna: Appears normal Midline Falx: Appears Normal Spine Cervical: Not well visualized Thoracic: Not well visualized Lumbar: Not well visualized Sacral: Not well visualized Shape/Curvature: Not well visualized Head/Neck Face: Appears normal Lips: Appears normal Neck: Appears normal Nuchal Fold: Appears normal Nasal Bone: Present Profile: Appears normal Orbits/Eyes: Appears normal Mandible: Appears Normal Maxilla: Appears normal Thorax Thoracic Contour: Appears normal Lungs: Appears normal 4 Chamber View: Not well visualized Cardiac Activity: Appears Normal Cardiac Rhythm: Normal Cardiac Situs: Appears normal Rt Outflow Tract: Appears normal Lt Outflow Tract: Not well visualized Aortic Arch: Could not document Ductal Arch: Appears normal SVC: Could not document Interventr. Septum: Could not document Cardiac [place]: Appears normal Diaphragm: Appears normal 3 Vessel View: Appears normal 3 V Trachea View: Not well visualized IVC: Could not document Crossing: Not well visualized Abdomen Ventral Wall: Appears normal Cord Insertion: Appears normal Situs: Appears normal Stomach: Appears normal Lt Kidney: Appears normal Rt Kidney: Appears normal Bladder: Appears normal Bowel: Appears normal Extremities Lt Humerus: Appears normal Rt Humerus: Appears normal Lt Forearm: Appears normal Rt Forearm: Appears normal Lt Hand: Appears normal Rt Hand: Appears normal Lt Femur: Appears normal Rt Femur: Appears normal Lt Lower Leg: Appears normal Rt Lower Leg: Appears normal Lt Foot: Appears normal Rt Foot: Appears normal Other Umbilical Cord: Appears normal Masses: None visualized Genitalia: Female CERVIX UTERUS ADNEXA: Cervix Length: 4.2 cm. Appears closed, without funnelling Uterus Gravid uterus Right Ovary Not visualized Left Ovary Not visualized Cul De Sac No fluid seen Adnexa No adnexal masses identified COMMENTS: 1. Ultrasound is not diagnostic for chromosomal abnormalities, will not detect all structural abnormalities, and is not diagnostic for genetic disorders even if multiple exams are performed during a given . 2. In addition to the trans abdominal approach, a trans vaginal ultrasound was also performed to optimize the visualization of the lower uterine segment and the cervix. 3. anatomic survey is incomplete due to position. 4. Images of optimal diagnostic quality could not be obtained. Tamy Gomes MD, [facility] Electronically Signed Final Report 05/19/2023 14:17 IMPRESSION: 1. Single intrauterine size consistent with dates. 2. Transvaginal Cervical Length = 4.2 cm. RECOMMENDATIONS: 1. Please see [facility] consultation documentation from today's encounter. 2. Patient is scheduled in 4 weeks to complete the anatomic survey. 3. Subsequent follow up or other follow up as clinically determined by primary OB provider unless otherwise specified by [facility]. 4. Results forwarded to ordering provider so they can follow up with the patient as necessary. The copy-to physician of this order is MCKENZIE Cao The ordering physician of this order is TAMY Ortega us Mckenzie Ruano DO G OB US PROCEDURES Final Resul t documented in this encounter Visit Diagnoses Not on filedocumented in this encounter Additional Health Concerns Active Problems Noted Date Diagnosed Date OB Reminders 03/15/2023 documented as of this encounter
--- OUTSIDE RECORDS SUMMARY | 2025-02-15 09:09 | XMS_ITS | Encounter Summary ---
Author Organization [facility] enter Address [address] [place] [address] Care Team Providers Care Director Personal Name Role Phone Erin Whiteside RN Primary Care Provider Unavaila Rodney Morrell MD Unavailable Archie Hugo MD, PhD Unavailable Unavailable Cheikh Coelho MD Unavailable Unavailable Erin Whiteside RAMP AGENT Primary Care Provider + Lavern Paul MD, MPH Unavailable [phone] Ron Ruano DO Unavailable [phone] Dolores Johnson DRILL FOREMAN-RAMP AGENT Unavailable [phone] Vinicius Gomes MD, PhD Unavailable [phone] Diego Apodaca MD Unavailable [phone] Diego Apodaca MD Unavailable [phone] Reason for Visit * Reason Onset Date Comments Insurance 05/13/2022 Encounter Details Date Type Department Care Team (Late st Contact Info) Description 05/13/2022 Telephone Division of Surgical Oncology [address] [place] [address] Archie Hugo MD, PhD Insurance [...] follows: Call came in from pt insurance, [place], regarding auth for surgery. Please review and contact them to discuss/update: Antonio from pt Insurance wanted to make sure pre auth was approved for surgery with Dr. Hugo on 05/22. Requesting call back on [phone]. Thanks! * Telephone Encounter - Lianet Carcamo - 05/13/2022 11:40 AM EDT Antonio from pt Insurance wanted to make sure pre auth was approved for surgery with Dr. Hugo on 05/22. Requesting call back on [phone]. Thanks! documented in this encounter Plan of Treatment Not on file documented as of this encounter Visit Diagnoses Not on filedocumented in this encounter Care Teams Director Personal Relationship Specialty Start Date End Date Erin Whiteside RN PCP - General 03/19/22 03/09/23 Erin Whiteside, RAMP AGENT [facility] [place] [address] PCP - General 03/10/23 Rodney Olivas MD Hematology 03/19/22 Archie Hugo MD, PhD Surgeon Surgical Oncology 07/08/22 02/10/24 Cheikh Coelho MD Search Manager Cardiovascular Disease 10/07/22 Lavern Paul MD, MPH [address] [facility] [address] [place] [address] Oncologist Medical Oncology 03/31/23 Ron Ruano DO [address] [facility] [address] [place] [address] Obstetrics & Gynecology 04/06/23 Dolores Johnson, DRILL FOREMAN-RAMP AGENT [address] [facility] [address] [place] [address] Psychiatric Registered Nurse Certified Nurse Practitioner 02/10/24 Vinicius Gomes MD, PhD [address] [place] [address] Oncologist Medical Oncology 02/10/24 Diego Apodaca MD [address] [place] [address] Psychiatric Registered Nurse Internal Medicine 02/11/24 02/15/24 Diego Apodaca MD [address] [place] [phone] Gastroenterology 02/16/24 documented as of this encounter
--- OUTSIDE RECORDS SUMMARY | 2025-02-15 09:09 | XMS_ITS ---
Author Organization [facility] Address [address] [place] [address] [place] [address] Care Team Providers Care Radio Commentator Name Role Phone Rodney Olivas MD Unavailable Cheikh Coelho MD Unavailable Unavailable Erin Whiteside SHELL CORE AND MOLDING SUPERVISOR Primary Care Provider + Lavern Paul MD, MPH Unavailable [phone] Ron Ruano DO Unavailable [phone] Dolores Johnson APRN-SHELL CORE AND MOLDING SUPERVISOR Unavailable [phone] Vinicius Gomes MD, PhD Unavailable [phone] Diego Apodaca MD Unavailable [phone] Active Problems Problem Noted Date Diagnosed Date [...] Reason Plan Provider Cycles OP OCTREOTIDE LAR [id number] 07/08/20 22 07/08/2022 No medications scheduled. Other - see comment Lavern Paul MD, MPH Treatment not started Lifetime Dose Tracking * Chemical Lifetime Dose Automatic Entry Manual Entr y Mitomycin 50.847 mg/m2 (90 mg) 50.847 mg/m2 (90 mg) 0 mg/m2 (0 mg)
--- OUTSIDE RECORDS SUMMARY | 2025-02-15 09:09 | XMS_ITS | Encounter Summary ---
Author Organization [facility] Address [address] [place] [address] Care Team Providers Care Rubble Placer Name Role Phone Erin Whiteside RN Primary Care Provider Unavaila Rodney Morrell MD Unavailable Archie Hugo MD, PhD Unavailable Unavailable Cheikh Coelho MD Unavailable Unavailable Erin Whiteside FISHER TERRAPIN Primary Care Provider + Lavern Paul MD, MPH Unavailable [phone] Ron Ruano DO Unavailable [phone] Dolores Johnson WET MIX OPERATOR-FISHER TERRAPIN Unavailable [phone] Vinicius Gomes MD, PhD Unavailable [phone] Diego Apodaca MD Unavailable [phone] Dieog Apodaca MD Unavailable [phone] Reason for Visit * Reason Onset Date Comments Lab Review 08/24/2022 Encounter Details Date Type Department Care Team (Late st Contact Info) Description 08/24/2022 Telephone Division of Medical Oncology [address] [place] [address] Johana Lutz, drag down Review Social History Tobacco Use Types Packs/Day [...] Entry Date Author No 05/22/2022 3:44 PM EDFrancia Malone RN documented in this encounter Miscellaneous Notes * Telephone Encounter - Yina Amyaa RN - 08/27/2022 12:05 PM EST Pt seen yesterday in clinic via video. Plan for local labs in near future * Telephone Encounter - Yina Amaya RN - 08/25/2022 1:32 PM EST [employer] message sent to pt asking about labs [...] Time PHQ-9 Depression Total Score: 2 07/08/20 8:02 AM EST documented as of this encounter Care Teams Rubble Placer Relationship Specialty Start Date End Date Erin Whiteside RN PCP - General 03/19/22 03/09/23 Erin Whiteside, FISHER TERRAPIN [address] [place] [phone] PCP - General 03/10/23 Rodney Olivas MD Hematology 03/19/22 Archie Hugo MD, PhD Surgeon Surgical Oncology 07/08/22 02/10/24 Cheikh Coelho MD Bar Welder Cardiovascular Disease 10/07/22 Lavern Paul MD, MPH [address] [facility] [address] [place] [address] Oncologist Medical Oncology 03/31/23 Ron Ruano DO [address] [facility] [address] [place] [phone] Obstetrics & Gynecology 04/06/23 Dolores Johnson APRN-FISHER TERRAPIN [address] [facility] [address] [place] [address] Stone Trimmer Certified Nurse Practitioner 02/10/24 Vinicius Gomes MD, PhD [address] [place] [address] Oncologist Medical Oncology 02/10/24 Diego Apodaca MD [address] [place] [address] Stone Trimmer Internal Medicine 02/11/24 02/15/24 Diego Apodaca MD [address] [place] [address] Gastroenterology 02/16/24 documented as of this encounter
--- OUTSIDE RECORDS SUMMARY | 2025-02-15 09:10 | XMS_ITS | Encounter Summary ---
Author Organization [facility] Address [address] [place] [address] Care Team Providers Care Loss Prevention And Safety Manager Name Role Phone Erin Whiteside RN Primary Care Provider Unavaila Rodney Morrell MD Unavailable Archie Hugo MD, PhD Unavailable Unavailable Cheikh Coelho MD Unavailable Unavailable Erin Whiteside BRASS FINISHER Primary Care Provider + Lavern Paul MD, MPH Unavailable [phone] Ron Ruano DO Unavailable [phone] Dolores Johnson INDUSTRIAL MAINTENANCE MECHANIC-BRASS FINISHER Unavailable [phone] Vinicius Gomes MD, PhD Unavailable [phone] Diego Apodaca MD Unavailable [phone] Diego Apodaca MD Unavailable [phone] Encounter Details Date Type Department Care Team (Late st Contact Info) Description 10/13/2022 Telephone Division of Surgical Oncology [address] [facility] [address] [place] [address] Leigh Pompa, RUPERT Social History Tobacco Use Types Packs/Day Years [...] Author No 05/22/2022 3:44 PM EDT Francia hCamberlain RN * Do you have serious difficulty [...] Time PHQ-9 Depression Total Score: 0 10/08/19 23 11:26 AM EDT documented as of this encounter Care Teams Loss Prevention And Safety Manager Relationship Specialty Start Date End Date Erin Whiteside, RN PCP - General 03/19/22 03/09/23 Erin Whiteside, BRASS FINISHER [address] [facility] [place] [address] PCP - General 03/10/23 Rodney Olivas MD Hematology 03/19/22 Archie Hugo MD, PhD Surgeon Surgical Oncology 07/08/22 02/10/24 Cheikh Coelho MD Out Patient Therapist Cardiovascular Disease 10/07/22 Lavern Paul MD, MPH [address] [place] [address]th [place] [address] Oncologist Medical Oncology 03/31/23 Ron Ruano DO [address] [facility] [address] [place] [address] Obstetrics & Gynecology 04/06/23 Dolores Johnson APRN-BRASS FINISHER [address] [address] [place] [address] On Site Manager Certified Nurse Practitioner 02/10/24 Vinicius Gomes MD, PhD [address] [place] 8th [place] [address] Oncologist Medical Oncology 02/10/24 Diego Apodaca MD [address] [place] 8th [place] [address] On Site Manager Internal Medicine 02/11/24 02/15/24 Diego Apodaca MD [address] [address] Gastroenterology 02/16/24 documented as of this encounter
--- OUTSIDE RECORDS SUMMARY | 2025-02-15 09:10 | XMS_ITS | Encounter Summary ---
Author Organization [facility] Address [address] [place] [address] Care Team Providers Care Finishing Pan Operator Name Role Phone Rodney Olivas MD Unavailable Archie Hugo MD, PhD Unavailable Unavailable Cheikh Coelho MD Unavailable Unavailable Erin Whiteside [facility] Primary Care Provider + Lavern Paul MD, MPH Unavailable [phone] Ron Ruano DO Unavailable [phone] Dolores Johnson [facility] Unavailable [phone] Vinicius Gomes MD, PhD Unavailable [phone] Diego Apodaca MD Unavailable [phone] Diego Apodaca MD Unavailable [phone] Reason for Visit * Reason Onset Date Comments Results 11/29/2023 Encounter Details Date Type Department Care Team (Late st Contact Info) Description 11/29/2023 Telephone Central Scheduling [address] [place] [address] Leigh Larsen Results Social History [...] earliest convenience.Thank you . CB# pt cell- [phone] * Telephone Encounter - Angel Galeana RN [...] Leigh Larsen - 11/29/2023 3:59 PM EDT N RESULT REQUEST Provider: Dolores Johnson Pt calling to obtain results regarding the following Name of test/procedure: Blood work Date when performed: 11/26/2023 Best time to reach patient: any time [phone] *Patient has been notified that they will be contacted within 24-48 hours. * documented in this encounter Plan of Treatment Not on file documented as of this encounter Visit Diagnoses Not on filedocumented in this encounter Additional Health Concerns Assessment Noted Time PHQ-9 Depression Total Score: 0 11/08/19 24 9:40 AM EDT documented as of this encounter Care Teams Finishing Pan Operator Relationship Specialty Start Date End Date Erin Whiteside CNP [address] [place] [address] PCP - General 03/10/23 Rodney Olivas MD Hematology 03/19/22 Archie Hugo MD, PhD Surgeon Surgical Oncology 07/08/22 02/10/24 Cheikh Coelho MD Fixed Assets Accountant Cardiovascular Disease 10/07/22 Lavern Paul MD, MPH [address] [place] [address] [place] [address] Oncologist Medical Oncology 03/31/23 Ron Ruano DO [address] [facility] [address] [place] [address] Obstetrics & Gynecology 04/06/23 Dolores Johnson APRN-PARTY PLAN SELLING DISTRIBUTOR [address] [facility] [address] [place] [address] Sizing Sprayer Certified Nurse Practitioner 02/10/24 Vinicius Gomes MD, PhD [address] [place] 8th [place] [address] Oncologist Medical Oncology 02/10/24 Diego Apodaca MD [address] [place] 8[address] [place] [address] Sizing Sprayer Internal Medicine 02/11/24 02/15/24 Diego Apodaca MD [address] [place], [place] [address] [address] Gastroenterology 02/16/24 documented as of this encounter
--- OUTSIDE RECORDS SUMMARY | 2025-02-15 09:10 | XMS_ITS | Encounter Summary ---
Author Organization [facility] Address [address] [place] [address] Care Team Providers Care Lab Asst Name Role Phone Unavailable Primary Care Provider Unavailabl e Encounter Details Date Type Department Care Team (Late st Contact Info) Description 11/23/2024 Abstract [facility] [address] [facility] [place] [phone] Rhoda Ortega LPN Social History Tobacco Use Types Packs/Day Years [...] EDT Office Visit ALBERTO HARDING [address] [facility] [place] [address] Elayne Bush PA [address] [facility] [address] [place], [facility]11 documented as of this encounter Goals Goal Patient Goal Type Associated Problems Recent Progress Patient-Stated? Author Reminders Care Plan OB Reminders No Open Scheduling, Background documented as of this encounter Visit Diagnoses Not on filedocumented in this encounter Additional Health Concerns Active Problems Noted Date Diagnosed Date OB Reminders 03/15/2023 documented as of this encounter
--- OUTSIDE RECORDS SUMMARY | 2025-02-15 09:10 | XMS_ITS | Encounter Summary ---
Author Organization [facility] Address [address] [place] [address] Care Team Providers Care Draw Furnace Tender Name Role Phone Unavailable Primary Care Provider Unavailabl e Encounter Details Date Type Department Care Team (Late Contact Info) Description 02/01/2025 Abstract [facility] [address] [facility] [place] [place] [address] Ron Ruano DO [address] [facility] [address] Raghu Velasquez, [facility] Social History Tobacco Use Types [...] AM EDT Office Visit ALBERTO HARDING [address] [facility] [place] [place] [address] Elayne Bush PA [address] [facility] [place] [address] documented as of this encounter Goals Goal Patient Goal Type Associated Problems Recent Progress Patient-Stated? Author Reminders Care Plan OB Reminders No Open Scheduling, Background documented as of this encounter Visit Diagnoses Not on filedocumented in this encounter Additional Health Concerns Active Problems Noted Date Diagnosed Date OB Reminders 03/15/2023 documented as of this encounter
--- OUTSIDE RECORDS SUMMARY | 2025-02-15 09:10 | XMS_ITS | Encounter Summary ---
Author Organization [facility] Address [address] [place] [address] Care Team Providers Care Relocation Associate Name Role Phone Unavailable Primary Care Provider Unavailabl e Encounter Details Date Type Department Care Team (Late Contact Info) Description 09/18/2024 Abstract [facility] [address] [facility] [place] [address] Ron Ruano DO [address] [facility] [address] Raghu Velasquez, [facility]11 Social History Tobacco Use Types Packs/Day [...] AM EDT Office Visit ALBERTO HARDING [address] [facility] [place] [place] [address] Elayne Bush PA [address] [facility] [place] [address] documented as of this encounter Goals Goal Patient Goal Type Associated Problems Recent Progress Patient-Stated? Author Reminders Care Plan OB Reminders No Open Scheduling, Background documented as of this encounter Visit Diagnoses Not on filedocumented in this encounter Additional Health Concerns Active Problems Noted Date Diagnosed Date OB Reminders 03/15/2023 documented as of this encounter
--- OUTSIDE RECORDS SUMMARY | 2025-02-15 09:10 | XMS_ITS | Encounter Summary ---
Author Organization [employer] Address [id number] [address] [place] [address] Care Team Providers Care Reimbursement Director Name Role Phone Erin Whiteside APRN-AUTO FLEET MANAGER Primary Care Provider Encounter Details Date Type Department Care Team (Late st Contact Info) Description 06/21/2023 Telephone [facility] Phys[facility] General Surgery-Trauma [address] [place] [address] Iris Medel CMA Social History Tobacco Use [...] declined 02/18/2022 How often do you attend gnosticism or tenriism serv ices? Never 02/18/2022 Do you belong to any clubs o r organizations such as gnosticism groups, unions, fraternal or athletic groups, or [...] Answer Date Recorded Total Score 16 02/18/2022 [facility] - Occupational Stress Questionnaire Answer [...] Recorded Do you need help finding a [facility] career center and/or a training program? [...] documented as of this encounter Care Teams Reimbursement Director Relationship Specialty Start Date End Date Erin Whiteside, SOFTWARE SOLUTIONS ARCHITECT-AUTO FLEET MANAGER [address] [place] [address] PCP - General Family Medicine 02/11/22 documented as of this encounter
--- OUTSIDE RECORDS SUMMARY | 2025-02-15 09:10 | XMS_ITS | Encounter Summary ---
Author Organization [facility] Address [address] [place] [address] Care Team Providers Care Phone Representative Name Role Phone Unavailable Primary Care Provider Unavailabl e Encounter Details Date Type Department Care Team (Late Contact Info) Description 01/31/2025 Abstract [facility] [address] [facility] [place] [address] Ron Ruano DO [address] [facility] [address] Raghu Velasquez, [facility]11 Social History Tobacco Use Types Packs/Day [...] AM EDT Office Visit ALBERTO HARDING [address] [facility] [place] [address] Elayne Bush PA [address] [facility] [place] [address] documented as of this encounter Goals Goal Patient Goal Type Associated Problems Recent Progress Patient-Stated? Author Reminders Care Plan OB Reminders No Open Scheduling, Background documented as of this encounter Visit Diagnoses Not on filedocumented in this encounter Additional Health Concerns Active Problems Noted Date Diagnosed Date OB Reminders 03/15/2023 documented as of this encounter
--- OUTSIDE RECORDS SUMMARY | 2025-02-15 09:10 | XMS_ITS | Encounter Summary ---
Author Organization [facility] Address [address] [place] [address] Care Team Providers Care Pipe Organ Installer Name Role Phone Rodney Olivas MD Unavailable Archie Hugo MD, PhD Unavailable Unavailable Cheikh Coelho MD Unavailable Unavailable Erin Whiteside [facility] Primary Care Provider + Lavern Paul MD, MPH Unavailable [phone] Ron Ruano DO Unavailable [phone] Dolores Johnson APRN-REAL ESTATE ECONOMIST Unavailable [phone] Vinicius Gomes MD, PhD Unavailable [phone] Diego Apodaca MD Unavailable [phone] Diego Apdoaca MD Unavailable [phone] Reason for Referral * MRI/CAT Scan (Routine) - Closed Specialty Diagnoses / Procedures Referred By Katharine morales Referred To Contact Diagnoses 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 Procedures CT ABDOMEN/PELVIS WITH AND WITHOUT CONTRAST CHG CT SCAN,ABDOMENT AND PELVIS,COMBO Yudelka Moralez APRN-CNP [address] [place] [address] Phone: tel: fax: Referral ID Status Reason Start Date Expiration Date Visits Re quested Visits Authorized [id number] Closed 11/10/2023 12/04/2024 1 1 * Consultation (Routine) - Closed Specialty Diagnoses / Procedures Referred By Contmarcia morales Referred To Contact Gastroenterology Diagnoses Hepatomegaly Transaminitis Yudelka Moralez APRN-CNP [address] [place] [address] Phone: tel: fax: Referral ID Status Reason Start Date Expiration Date Visits Re quested Visits Authorized [id number] Closed 11/10/2023 12/04/2024 1 1 * Consultation (Routine) - Closed Specialty Diagnoses / Procedures Referred By Katharine morales Referred To Contact Oncology Diagnoses Low grade mucinous neoplasm of appendix Yudelka Moralez APRN-CNP [address] [place] [address] Phone: tel: fax: Referral ID Status Reason Start Date Expiration Date Visits Re quested Visits Authorized [id number] Closed 11/10/2023 12/04/2024 1 1 Reason for Visit * Reason Onset Date Comments Imaging Results 11/09/2023 Encounter Details Date Type Department Care Team (Late st Contact Info) Description 11/09/2023 Telephone Division of Endocrinology [address] [facility] [address] [place] [address] Candida Giordano Imaging Results Social [...] documented in this encounter Plan of Treatment Scheduled Referrals Name Type Priority Associated Diagnoses Order Schedule AMB REFERRAL TO ONCOLOGY Outpatient Referral Routine Low grade mucinous neoplasm of appendix Ordered: 11/10/2023 AMB REFERRAL TO HEPATOLOGY Outpatient Referral Routine Hepatomegaly Transaminitis Ordered: 11/10/2023 documented as of this encounter Results * CHROMOGRANIN A (02/07/2024 2:09 PM EDT) Chromogranin A <20 <93 ng/mL 02/08/2024 2:45 PM EDT [facility] [employer] Comment: ADDITIONAL INFORMATION The testing method is a homogeneous time-resolved immunofluorescent assay manufactured by [employer] and performed on the [employer]io Kryptor Compact Plus. Values obtained with different [...] examination and other findings. Test Performed by: [facility] [place] [address] Puppet Engineer: Jami Sher Ph.D.; CLIA# [id number] Blood Venipuncture / Unknown 02/07/2024 2:09 PM EDT 02/07/2024 2:13 PM EDT us Ye Moralez MAGNETIC LOCATER-REAL ESTATE ECONOMIST CHEMISTRY ORDERABLES Final Resu lt [facility] [address] [place] [address], * LACTATE DEHYDROGENASE (02/07/2024 2:09 PM EDT) Pathologist [facility] LD Total 110 100 - 190 U/L 02/07/2024 2:33 PM EDT [facility] Blood Venipuncture / Unknown 02/07/2024 2:09 PM EDT 02/07/2024 2:13 PM EDT Yudelka Moralez MAGNETIC LOCATER-REAL ESTATE ECONOMIST CHEMISTRY ORDERABLES Final Resu lt [facility] [address] [place] [address] * (ABNORMAL) COMPREHENSIVE METABOLIC PANEL (02/07/2024 2:09 PM EDT) [facility] Sodium 134(L) 135 - 145 mmol/L 02/07/2024 2:33 PM EDT [facility] Potassium 4.0 3.5 - 5.0 mmol/L 02/07/2024 2:33 PM EDT [facility] Chloride 98 98 - 108 mmol/L 02/07/2024 2:33 PM EDT [facility] BUN 6(L) 7 - 25 mg/dL 02/07/2024 2:33 PM EDT [facility] Creatinine 0.58 0.50 - 1.20 mg/dL 02/07/2024 2:33 PM EDT [facility] Glucose 108(H) 70 - 99 mg/dL 02/07/2024 2:33 PM EDT [facility] Bilirubin Total 0.7 <1.5 mg/dL 2:33 PM EDT [facility] Albumin 4.8 3.5 - 5.0 g/dL 02/07/2024 2:33 PM EDT [facility] Total Protein 7.5 6.4 - 8.3 g/dL 02/07/2024 2:33 PM EDT [facility] AST 26 10 - 39 U/L 02/07/2024 2:33 PM EDT [facility] ALP 56 32 - 126 U/L 02/07/2024 2:33 PM EDT [facility] Calcium 9.5 8.6 - 10.5 mg/dL 02/07/2024 2:33 PM EDT [facility] CO2 29 21 - 31 mmol/L 02/07/2024 2:33 PM EDT [facility] ALT 41 9 - 48 U/L 02/07/2024 2:33 PM EDT [facility] Bun/Crea Ratio 10 02/07/2024 2:33 PM EDT [facility] Osmolality (Calculated) 280 278 - 305 mOsm/kg 02/07/2024 2:33 PM EDT [facility] Anion Gap 11 7 - 17 mmol/L 02/07/2024 2:33 PM EDT [facility] eGFR, CKD-EPI, Female >90 >=60 mL/min/1.7 3m2 02/07/2024 2:33 PM EDT [facility] Comment:Reported eGFR is bas ed on the CKD-EPI 2020 equation using creatinine, age, and sex. Blood Venipuncture / Unknown 02/07/2024 2:09 PM EDT 02/07/2024 2:13 PM EDT us Yudelka Moralez MAGNETIC LOCATER-REAL ESTATE ECONOMIST CHEMISTRY ORDERABLES Final Resu lt [facility] [address] [facility] [address] [place] [address] * CT ABDOMEN/PELVIS WITH AND WITHOUT CONTRAST [...] error, please notify the sender immediately at [phone] and permanently delete the original report and [...] in error, please notify the sender immediatelyat [phone] and permanently delete the original report and destroy anycopies or printouts. Yudelka Moralez APRN-TASH CT ORDERABLES Final Result documented in this [...] documented as of this encounter Care Teams Pipe Organ Installer Relationship Specialty Start Date End Date Erin Whiteside CNP [address] [place] [address] PCP - General 03/10/23 Rodney Olivas MD Hematology 03/19/22 Archie Hugo MD, PhD Surgeon Surgical Oncology 07/08/22 02/10/24 Cheikh Coelho MD Striper Cardiovascular Disease 10/07/22 Lavern Paul MD, MPH [address] [place] [address] [place] [address] Oncologist Medical Oncology 03/31/23 Ron uRano DO [address] [facility] [address] [place] [address] Obstetrics & Gynecology 04/06/23 Dolores Johnson, MAGNETIC LOCATER-REAL ESTATE ECONOMIST [address] [facility] [address] [place] [address] Pyroglazer Certified Nurse Practitioner 02/10/24 Vinicius Gomes MD, PhD [address] [place] [address] [place] [address] Oncologist Medical Oncology 02/10/24 Diego Apodaca MD [address] [place] [address] [place] [address] Pyroglazer Internal Medicine 02/11/24 02/15/24 Diego Apodaca MD [address] [place] [address] Gastroenterology 02/16/24 documented as of this encounter
--- OUTSIDE RECORDS SUMMARY | 2025-02-15 09:10 | XMS_ITS | Encounter Summary ---
Author Organization [facility] enter Address [address] [place] [address] Care Team Providers Care Director Of Nursing Name Role Phone Rodney Olivas MD Unavailable Cheikh Coelho MD Unavailable Unavailable Erin Whiteside DOG BATHER Primary Care Provider [phone] Lavern Paul MD, MPH Unavailable [phone] Ron Ruano DO Unavailable [phone] Dolores Johnson APRN-DOG BATHER Unavailable [phone] Vinicius Gomes MD, PhD Unavailable [phone] Diego Apodaca MD Unavailable [phone] Reason for Visit * Reason Onset Date Comments Medication Refill 04/05/2024 Encounter Details Date Type Department Care Team (Late st Contact Info) Description 04/05/2024 Telephone Division of Medical Oncology [address] [address] Lavern Paul MD, MPH [address] [address] Medication Refill Social History Tobacco Use [...] as of this encounter Care Teams Director Of Nursing Relationship Specialty Start Date End Date Erin Whiteside, DOG BATHER [address] [facility] [place] [address] PCP - General 03/10/23 Rodney Olivas MD Hematology 03/19/22 Cheikh Coelho MD Correctional Classification Counselor Cardiovascular Disease 10/07/22 Lavern Paul MD, MPH [address] [place] [address] [place] [address] Oncologist Medical Oncology 03/31/23 Ron Ruano DO [address] [facility] [address] [place] [address] Obstetrics & Gynecology 04/06/23 Dolores Johnson APRN-DOG BATHER [address] [place] [address] Clerical Investigator Certified Nurse Practitioner 02/10/24 Vinicius Gomes MD, PhD [address] [place] [address] [place] [address] Oncologist Medical Oncology 02/10/24 Diego Apodaca MD [address] [place] [address] Gastroenterology 02/16/24 documented as of this encounter
--- OUTSIDE RECORDS SUMMARY | 2025-02-15 09:10 | XMS_ITS | Clinical Summary ---
Author Organization [facility] Address [address] [place] [place] [address] Care Team Providers Care Asphalt Mixing Machine Operator Name Role Phone Unavailable Primary Care Provider Unavailabl e Allergies Active Allergy Reactions Criticality Noted Date Comments Gabapentin Diarrhea,Nausea Only 10/07/2022 Other Reaction(s): nausea, diarrhea Metronidazole GI intolerance,Nause a Only 11/26/2023 Other Reaction(s): GI Disturbance Medications Acetaminophen (TYLENOL EXTRA STRENGTH PO) Take 500 mg by mouth in the morning. Active FLUoxetine (PROzac) 20 MG capsuleIndicati ons:Depression with anxiety Take 1 capsule (20 mg) by mouth in the morning. 30 capsule 11 08/17/2023 Active lamoTRIgine (LaMICtal) 25 MG tabletIndicatio ns:Depression with anxiety Take 1 tablet (25 mg) by mouth Daily 90 tablet 2 09/28/2023 Active Emgality 120 MG/ML auto-injector Inject 120 mg under the skin every 30 (thirty) days 11/16/2024 Active octreotide (SandoSTATIN) 100 MCG/ML injection Infuse 100 mcg into a venous catheter in the morning and 100 mcg in the evening and 100 mcg before bedtime. Active hydrOXYzine pamoate (Vistaril) 50 MG capsule Take 50 mg by mouth 3 (three) times a day as needed Active Encounters Date Type Department Care Team Description 02/01/2025 10:40 [place] [address] Ron Ruano DO Pre-op examination; Pelvic pain; Pelvic congestion syndrome 02/01/[address] [place] [address] [place] [address] Ron Ruano, DO 01/31/2025 Abstract [facility] [address] [place] [address] [place] [address] Ron Ruano, DO 01/31/2025 Travel 11/23/2024 Abstract [facility] [address] [place] [address] [place] [address] Rhoda Ortega LPN 11/21/2024 10:40 AM EDT Consult [place] [place] [address] Ron Ruano, Pre-op examination; Pelvic congestion syndrome; Pelvic pain in female from Last 3 Months Family History Medical History Relation Name Comments Breast cancer Mother's Sister Relation Name Status Comments Mother's Sister Social History Tobacco Use Types Packs/Day Years Used Date Smoking Tobacco: Never Assessed Comments Unknown Sex and Gender Information Value Date Recorded Sex Assigned at Female 01/25/2023 9:28 AM EDT Legal Sex Female 11:48 PM EDT Gender Identity Female 01/25/2023 9:28 AM EDT Sexual Orientation Straight 01/25/2023 9: 28 AM EDT Last Filed Vital Signs Vital Sign Reading Time Taken Comments Blood Pressure 112/78 02/01/2025 10:51 AM EDT Pulse - - Temperature - - Respiratory Rate - - Oxygen Saturation - - Inhaled Oxygen Concentration - - Weight 68.7 kg (151 lb 8 oz) 02/01/2025 10:51 AM EDT Height 160 cm (5' 3 ) 03/30/2023 2:54 PM EDT Body Mass Index 26.84 03/30/2023 2:54 PM EDT Plan of Treatment Upcoming Encounters Date Type Department Care Team (Late st Contact Info) Description 03/08/2025 9:30 AM EDT Office Visit [facility] [address] [place] [id number] Elayne Bush PA [address] [place] [address] Health Maintenance Due Date Last Done Comments Influenza Vaccine (#1) 2025 04/28/2021 Goals Goal Patient Goal Type Associated Problems Recent Progress Patient-Stated? Author Reminders Care Plan OB Reminders No Open Scheduling, Background Additional Health Concerns Active Problems Noted Date Diagnosed Date OB Reminders 03/15/2023 Insurance [employer] O
--- OUTSIDE RECORDS SUMMARY | 2025-02-15 09:10 | XMS_ITS | Encounter Summary ---
Author Organization [facility] Address [address] [place] [address] Care Team Providers Care Lamination Spinner Name Role Phone Unavailable Primary Care Provider Unavailabl e Encounter Details Date Type Department Care Team (Late st Contact Info) Description 09/21/2023 Clinisync Result Encounter [facility] External Department Unsolicited Mckenzie Ruano DO [address] Raghu Mar[place], [facility] Social History Tobacco Use Types Packs/Day [...] EDT Office Visit [facility] [address] [address] Elayne Bush PA [address] [place], [facility] documented as of this encounter Goals Goal Patient Goal Type Associated Problems Recent Progress Patient-Stated? Author Reminders Care Plan OB Reminders No Open Scheduling, Background documented as of this encounter Procedures Procedure Name Priority Date/Time Associated Diagnosis Comments US OB GROWTH 09/21/2023 6:58 AM EST documented in this encounter Results * US OB GROWTH (09/21/2023 6:58 AM EST) Anatomical Region Laterality Modality Other 09/21/2023 6:58 AM EST Narrative 09/21/2023 7:01 [place] [address] Ultrasound Report Signed Patient: ZAINAB MARTINEZ MR#: [id number] : 1995 Acct:[id number] Age/Sex: 28 / F ADM Date: 09/20/23 Loc: [facility] Attending Dr: Mckenzie Ruano D.O. Ordering Physician: Mckenzie Ruano D.O. Date of Service: 09/20/23 Procedure(s): US OB growth Accession Number(s): [id number] cc: ELOISE SAMS ; Mckenzie Ruano D.O. [place] [address] Patient Name: ZAINAB MARTINEZ MRN: [id number] date: 1995 Sex: F Assigned Patient Location: [facility] Current Patient Location: Accession/Order Number: [id number] Exam Date: 09/20/2023 15:05 Report Date: 09/21/2023 06:58 At the request of: MCKENZIE RUANO Procedure: US OB growth EXAMINATION: US OB growth HISTORY: LGA COMPARISON: 03/04/2023 FINDINGS: Heart Rate: 143.0 bpm Amniotic Fluid Volume: 19.1 cm Number: 1.0 Position: CEPHALIC Maximum Vertical Pocket: 5.8 cm cm 4.5 cm cm 6.3 cm cm 2.5 cm cm BIOMETRY: BPD: 9.0 cm cm; 36 weeks 2 days; 28% HC: 33.2 cmcm; 37 weeks 6 days , 27% AC: 35.2 cm cm; 39 weeks 1 days, 92% FL: 7.1 cm cm; 36 weeks 3 days; 17.4 % % EFW: 3366.2 grams, 7 lbs. 11 oz., 65% FL/AC: 20.2 FL/BPD: 79.2 HC/AC: 0.9 GESTATIONAL AGE: Age by EDC: 37 weeks 6 days AMY by EDC: 10/05/2023 Age by US: 37 weeks 3 days AMY by US: 10/08/2023 US/US OB growth IMPRESSION: Normal interval growth Electronically authenticated by: NAWAF RUIZ Date: 09/21/2023 06:58 Dictated By: Nawaf Ruiz M.D. Signed By: 09/21/23 0701 DD/ 0658 TD/TT: Briar Shop Supervisor: Procedure Note Radiology, Radiologist, MD - 09/21/2023 [place] [address] Ultrasound Report Signed Patient: ZAINAB MARTINEZ KMR#: [id number] : 1995Acct:[id number] Age/Sex: 28 / FADM Date: 09/20/23 Loc: [facility] Attending Dr: Mckenzie Ruano D.O. Ordering Physician: Mckenzie Ruano D.O. Date of Service: 09/20/23 Procedure(s): US OB growth Accession Number(s): [id number] cc: ELOISE SAMS ; Mckenzie Ruano D.O. The [place] [id number] Patient Name: ZAINAB MARTINEZ MRN: [id number] date: 1995 Sex: F Assigned Patient Location: [facility] Current Patient Location: Accession/Order Number: [id number] Exam Date: 09/20/2023 15:05 Report Date: 09/21/2023 06:58 At the request of: MCKENZIE RUANO Procedure: US OB growth EXAMINATION: US OB growth HISTORY: LGA COMPARISON: 03/04/2023 FINDINGS: Heart Rate: 143.0 bpm Amniotic Fluid Volume: 19.1 cm Number: 1.0 Position: CEPHALIC Maximum Vertical Pocket: 5.8 cm cm 4.5 cm cm 6.3 cm cm 2.5 cm cm BIOMETRY: BPD: 9.0 cm cm; 36 weeks 2 days; 28% HC: 33.2 cmcm; 37 weeks 6 days , 27% AC: 35.2 cm cm; 39 weeks 1 days, 92% FL: 7.1 cm cm; 36 weeks 3 days; 17.4 % % EFW: 3366.2 grams, 7 lbs. 11 oz., 65% FL/AC: 20.2 FL/BPD: 79.2 HC/AC: 0.9 GESTATIONAL AGE: Age by EDC: 37 weeks 6 days AMY by EDC: 10/05/2023 Age by US: 37 weeks 3 days AMY by US: 10/08/2023 US/US OB growth IMPRESSION: Normal interval growth Electronically authenticated by: NAWAF RUIZ Date: 09/21/2023 06:58 Dictated By: Nawaf Ruiz M.D. Signed By:09/21/23 0701 DD/ 0658 TD/TT: Briar [employer] Supervisor: us Mckenzie Alden DO [facility] Final Result documented in this encounter Visit Diagnoses Not on filedocumented in this encounter Additional Health Concerns Active Problems Noted Date Diagnosed Date OB Reminders 03/15/2023 documented as of this encounter
--- OUTSIDE RECORDS SUMMARY | 2025-02-15 09:10 | XMS_ITS | Clinical Summary ---
Author Organization [facility] Address [address] [place], [place] [id number] Care Team Providers Care Income Tax Consultant Name Role Phone Connor Giraldo MD Unavailable [phone] Social History Tobacco Use Types Packs/Day [...] 3-dose series) 05/06 Cervical Cancer Screening 2018 Influenza Vaccine (#1) 2025 Insurance [employer] PREFERRED PPO [employer] Care Teams Income Tax Consultant Relationship Specialty Start Date End Date Connor Giraldo MD [address] [facility] [place] [address] Referring Family Medicine 08/29/24
--- OUTSIDE RECORDS SUMMARY | 2025-02-15 09:10 | XMS_ITS | Patient Health Record ---
Author Organization The [facility] in [place] Address [address] [place] [address] Care Team Providers Care Master Control Operator Name Role Phone Erin Sams Primary Care Provider Allergies Allergen (clinical drug ingredient) Drug/Non Drug Allergy documented on EMR Reaction Allergy Type Onset Date Status metronidazole Flagyl nausea and vomiting Drug Allergy Active gabapentin Gabapentin nausea, diarrhea Drug Allergy Active Results Component Value Reference Range Notes XR lumbar spine 2-3V Reviewed date:07/21/2024 02:59:51 PM Interpretation: Performing Lab: Notes/Report: Source Facility: [place] [id number] XRay Report Signed Patient: ZAINAB MARTINEZ MR#: [id number] : 1995 Acct:[id number] Age/Sex: 29 / F ADM Date: 07/18/24 Loc: RAD Attending Dr: ERIN SAMS Ordering Physician: ERIN SAMS Date of Service: 07/18/24 Procedure(s): XR lumbar spine 2-3V Accession Number(s): [id number] cc: ERIN SAMS [place] [address] Patient Name: ZAINAB MARTINEZ MRN: [id number] date: 1995 Sex: F Assigned Patient Location: RAD Current Patient Location: Accession/Order Number: [id number] Exam Date: 07/18/2024 15:39 Report Date: 07/20/2024 11:33 At the request of: ERIN SAMS Procedure: XR lumbar spine 2-3V EXAMINATION: XR lumbar spine 2-3V HISTORY: Back pain COMPARISON: 10/15/2023 FINDINGS: BONES: Normal. No significant spondylosis, scoliosis, fracture, or visible bony lesion. DISC SPACES: Normal. No significant disc height narrowing, subluxation, or endplate abnormality. PARASPINOUS: Negative. No paraspinous abnormality is seen. OTHER: Multiple suture lines right midabdomen. XR/XR lumbar spine 2-3V IMPRESSION: No acute abnormality Electronically authenticated by: NAWAF RUIZ Date: 07/20/2024 11:33 Dictated By: Nawaf Ruiz M.D. Signed By: 07/20/24 1135 DD/ 1133 TD/TT: Banking Pin Adjuster: [place] [address] XRay Report Signed Patient: NYLA MARTINEZ MR#: [id number] : 1995 Acct:[id number] Age/Sex: 29 / F ADM Date: 07/18/24 Loc: RAD Attending Dr: ERIN SAMS Ordering Physician: ERIN SAMS Date of Service: 07/18/24 Procedure(s): XR lum bar spine 2-3V Accession Number(s): [id number] cc: ERIN SAMS [place] [address] Patient Name: ZAINAB MARTINEZ MRN: [id number] date: 1995 Sex: F Assigned Patient Location: [facility] Current Patient Location: Accession/Order Numb er: [id number] Exam Date: 15:39 Report Date: 07/20/2024 11:33 At the request of: ERIN SAMS Procedure: XR lumbar spine 2-3V EXAMINATION: XR lumb ar spine 2-3V HISTORY: Back pain COMPARISON: 10/15/2023 FINDINGS: BONES: Normal. No significant spondylosis, scoliosis, fracture, or visible bony lesion. DISC SPACES: Normal. No significant disc height narrowing, subluxation, or endplate abnormality. PARASPINOUS: Negativ e. No paraspinous abnormality is seen. OTHER: Multiple sutu re lines right midabdomen. XR/XR lumbar spine 2-3V IMPRESSION: No acute abnormality Electronically authenticated by: NAWAF RUIZ Date: 07/20/2024 11:33 Dictated By: Asaf Ruiz M.D. Signed By: 07/20/24 1135 DD/ 1133 TD/TT: Banking Pin Adjuster: SERGEY MARTINEZAUTAnanda WO MICRO ([id number]) - IN OFFICE (Not yet reviewed by provider) Interpretation: Performing Lab: Notes/Report: COLOR yellow CLARITY clear GLUCOSE neg BILIRUBIN neg KETONE neg SPECIFIC GRAVITY 1.025 BLOOD neg PH 5 PROTEIN trace UROBILINOGEN neg NITRITE neg LEUKOCYTE ESTERASE trace H PYLORI TISSUE Reviewed date:05/04/2024 09:58:42 AM Interpretation: Performing Lab: Notes/Report: [facility] , H Pylori Tissue, Urease Negative Performing Lab: see note ML - [facility] LB IGP,Aptima HPV,Age Gdln Reviewed date:08/28/2024 10:36:57 PM Interpretation: Performing Lab: Notes/Report: BRUSH-SPATULA CERVIX ENDOCERVIX [facility] , Age Gdln ACOG Testing Note . Source.............Cerv ix;Endocervix FLAG LEGEND: L-Low Normal,H-High Normal,LL-Alert Low,HH-Alert High Clinician Provided Cytology Information Performed at: Age Algo ACOG Joyce... -16 08 TESTS RESULT FLAG UNITS REF RANGE LAB No. of containers..01 ThinPrep Vial Dina Jaimes MD, [address] [place], [place] [address] [address] 63 =G [facility] <-Panic Low,>-Panic High,A-Abnormal,AA-Crit ical Abnormal IGP, rfx Aptima HPV ASCU Note . occur. cancer. Both false-positive and false-negative reports do [address] [facility] [place], [place] [id number] The HPV DNA reflex criteria were not met with this specimen Performed at: [facility] L-Low Normal,H-High Normal,LL-Alert Low,HH-Alert High [address] [place] [address] NEGATIVE FOR INTRAEPITHELIAL LESION OR MALIGNANCY. uterine cervix. It is not a diagnostic procedure and [address] [facility] [facility] [place] [place] [id number] Farm Instructor: Dina Jaimes MD, Phone: [phone] detection of premalignant and malignant conditions of the TESTS RESULT FLAG UNITS REF RANGE LAB Satisfactory for evaluation. No endocervical component is identified. <-Panic Low,>-Panic High,A-Abnormal,AA-Crit ical Abnormal The Pap smear is a screening test designed to aid in the Dina Jaimes MD, Specimen adequacy: 02 . 02 [facility] Note: Note 02 should not be used as the sole means of detecting cervical . 02 the use of an image guided system. FLAG LEGEND: DIAGNOSIS: 02 Performed at: This liquid based ThinPrep(R) pap test was screened with Eula Ramesh Water Purifier (ASCP) result therefore, no HPV testing was performed. Performed by: 02 Performed at: =G - [facility] [place] Test Methodology: Note 02 Farm Instructor: Dina Jaimes MD, Phone: [phone] Performing Lab: see note LC - [facility] LB MR lumbar spine wo con Reviewed date:08/29/2024 01:02:07 PM Interpretation: Performing Lab: Notes/Report: Source Facility: [place] [address] Magnetic Resonance Report Signed Patient: ZAINAB MARTINEZ MR#: [id number] : 1995 Acct:[id number] Age/Sex: 29 / F ADM Date: 08/23/24 Loc: MRI Attending Dr: ERIN SAMS Ordering Physician: ERIN SAMS Date of Service: 08/23/24 Procedure(s): MR lumbar spine wo con Accession Number(s): [id number] cc: ERIN SAMS [place] [address] Patient Name: ZAINAB MARTINEZ MRN: [id number] date: 1995 Sex: F Assigned Patient Location: MRI Current Patient Location: MRI Accession/Order Number: [id number] Exam Date: 08/23/2024 12:45 Report Date: 08/23/2024 18:34 At the request of: ERIN SAMS Procedure: MR lumbar spine wo con EXAM: MR lumbar spine wo con HISTORY: Sciatica M54.30 COMPARISON: CT abdomen 12/21/2023, 02/03/2022 TECHNIQUE/PROTOCOL: Noncontrast lumbar spine MR protocol (Sagittal T1, T2, STIR and axial T1, T2 sequences). FINDINGS: Five lumbar-type vertebral bodies with maintained heights and alignment. No acute or aggressive marrow signal changes are identified. There is a defect in the right lamina of the L5 vertebra. There are failure of fusion of the posterior sacral elements and mild degeneration of right sacroiliac joint are identified in the previous CT abdomen studies. No acute prevertebral or paraspinal soft tissue abnormalities. Conus terminates at L1-2 level. Visualized distal spinal cord and the cauda equina are morphologically normal. There is no disc bulge/herniation, high-grade spinal canal or foraminal narrowing at any level. MR/MR lumbar spine wo con IMPRESSION: No acute abnormality, disc bulge/herniation, high-grade spinal canal or foraminal narrowing at any level. No abnormality of the spinal cord. Stable defect in the right lamina of the L5 vertebra which may represent a hemilaminectomy defect or a congenital fusion anomaly. Failure of fusion of the posterior sacral elements and mild degenerative changes of right SI joint are also identified in the previous CT abdomen studies which likely represents spina bifida occulta. Electronically authenticated by: PRISCILA TIWARI Date: 08/23/2024 18:34 Dictated By: PRISCILA TIWARI M.D. Signed By: 08/23/241836 DD/ 33 TD/TT: Banking Pin Adjuster: [place] [address] Magnetic Resonance Report Signed Patient: NYLA MARTINEZ MR#: [id number] : 1995 Acct:[id number] Age/Sex: 29 / F ADM Date: 08/23/24 Loc: MRI Attending Dr: ERIN SAMS Ordering Physician: ERIN SAMS Date of Service: 08/23/24 Procedure(s): MR lum bar spine wo con Accession Number(s): [id number] cc: ERIN SAMS [place] [address] Patient Name: ZAINAB MARTINEZ MRN: [id number] date: 1995 Sex: F Assigned Patient Location: MRI Current Patient Location: MRI Accession/Order Numb er: [id number] Exam Date: 08/23/2024 12:45 Report Date: 08/23/2024 18:34 At the request of: ERIN SAMS Procedure: MR lumbar spine wo con EXAM: MR lumbar spin e wo con HISTORY: Sciatica M54.30 COMPARISON: CT abdom en 12/21/2023, 02/03/2022 TECHNIQUE/PROTOCOL: Noncontrast lumbar spine MR protocol (Sagittal T1, T2, STIR and axial T1, T2 sequences). FINDINGS: Five lumbar-type vertebral bodies with maintained heights and alignment. No acute or aggressi ve marrow signal changes are identified. There is a defect in the right lamina of the L5 vertebra. There are failure of fusion of the posterior sacral elements and mild degeneration of right sacroiliac joint are identified in the previous CT abdomen studies. No acute prevertebra l or paraspinal soft tissue abnormalities. Conus terminates at L1-2 level. Visualized distal spinal cord and the cauda equina are morphologically normal. There is no disc bulge/herniation, high-grade spinal canal or foraminal narrowing at any level. MR/MR lumbar spine wo con IMPRESSION: No acute abnormality , disc bulge/herniation, high-grade spinal canal or foraminal narrowing at any level. No abnormality of th e spinal cord. Stable defect in the right lamina of the L5 vertebra which may represent a hemilaminectomy defe ct or a congenital fusion anomaly. Failure of fusion of the posterior sacral elements and mild degenerative changes of right SI joint are also identified in t he previous CT abdomen studies which likely represents spina bifida occulta. Electronically authenticated by: PRISCILA TIWARI Date: 08/23/2024 18:34 Dictated By: MASHA TIWARI M.D. Signed By: 08/23/241836 DD/ 33 TD/TT: Banking Pin Adjuster: SERGEY DASH W or MICROSCOPIC Reviewed date:11/06/2024 02:23:17 PM Interpretation: Performing Lab: Notes/Report: [facility] , Color Urine LT. YELLOW YELLOW Clarity Urine CLEAR CLEAR Specific [place] Urine 1.020 1.005-1.025 pH Urine 6.0 5.0-9.0 Protein Urine NEGATIVE NEG/TRACE mg/dL Glucose Urine UA NEGATIVE NEGATIVE mg/dL Bilirubin Urine NEGATIVE NEGATIVE Ketones Urine NEGATIVE NEGATIVE mg/dL Blood Urine NEGATIVE NEGATIVE Nitrite Urine NEGATIVE NEGATIVE Urobilinogen Urine 0.2 0.2-1.0 EU/dL Leukocyte Esterase Urine TRACE NEGATIVE WBC Urine 2-5 NONE SEEN #/HPF RBC Urine 0-2 0-2 #/HPF Bacteria Urine SMALL NONE SEEN #/HPF Mucus Urine TRACE NONE SEEN Squamous Epithelial Cell Urine FEW NONE/RARE #/LPF Crystals Seen? None Seen None Seen #/HPF Cast Seen? NONE SEEN NONE SEEN #/LPF Urine Culture Indicated ALREADY ORDERED Performing Lab: see note ML - [facility] LB US pelvis w/ transvaginal Reviewed date:11/06/2024 10:38:04 AM Interpretation: Performing Lab: Notes/Report: Source Facility: [place] [address] Ultrasound Report Signed Patient: ZAINAB MARTINEZ MR#: [id number] : 1995 Acct:[id number] Age/Sex: 29 / F ADM Date: 11/03/24 Loc: US Attending Dr: ERIN SAMS Ordering Physician: ERIN SAMS Date of Service: 11/03/24 Procedure(s): US pelvis w/ transvaginal Accession Number(s): [id number] cc: ERIN SAMS [place] [address] Patient Name: ZAINAB MARTINEZ MRN: [id number] date: 1995 Sex: F Assigned Patient Location: Current Patient Location: US Accession/Order Number: [id number] Exam Date: 11/03/2024 21:12 Report Date: 11/03/2024 21:15 At the request of: ERIN SAMS Procedure: US pelvis w/ transvaginal Transvaginal pelvic ultrasound HISTORY: Left pelvic pain for 2 weeks Uterus is retroverted. Uterus measures 9.5 x 4.6 x 5.2 cm. No uterine mass. The endometrium has a total combined thickness of 11 mm. The right ovary measures 4.7 x 2.2 x 2.6 cm with resistive index of 0.63. Dominant right ovarian follicle measures up to 16 mm. Left ovary measures 2.4 x 1.4 x 1.5 cm with a resistive index of 0.51. Prominent left adnexal vessels identified. No adnexal mass or free fluid. US/US pelvis w/ transvaginal IMPRESSION: Retroverted uterus. Unremarkable endometrial complex and ovaries. No adnexal mass or free fluid. Prominent left adnexal vessels. May represent congestion. Impression dictated by: Pedro Joseph M.D.11/03/2024 9:15 PM Dictation Location: [place] [address] Electronically authenticated by: [id number] Y Date: 11/03/2024 21:15 Dictated By: Pedro Joseph D.O. Signed By: 11/03/242117 DD/ 14 TD/TT: Banking Pin Adjuster: [place] [address] Ultrasound Report Signed Patient: NYLA MARTINEZ MR#: [id number] : 1995 Acct:[id number] Age/Sex: 29 / F ADM Date: 11/03/24 Loc: US Attending Dr: ERIN SAMS Ordering Physician: ERIN SAMS Date of Service: 11/03/24 Procedure(s): US pel vis w/ transvaginal Accession Number(s): [id number] cc: ERIN SAMS [address] [address] Patient Name: ZAINAB MARTINEZ MRN: [id number] date: 1995 Sex: F Assigned Patient Location: Current Patient Location: US Accession/Order Numb er: [id number] Exam Date: 11/03/2024 21:12 Report Date: 11/03/2024 21:15 At the request of: ERIN SAMS Procedure: US pelvis w/ transvaginal Transvaginal pelvic ultrasound HISTORY: Left pelvic pain for 2 weeks Uterus is retroverte d. Uterus measures 9.5 x 4.6 x 5.2 cm. No uterine mass. The endometrium has a total combined thickness of 11 mm. The right ovary measures 4.7 x 2.2 x 2.6 cm with resistive index of 0.63. Dominant right ovarian follicle measures up to 16 mm. Left ovary measures 2.4 x 1.4 x 1.5 cm with a resistive ind ex of 0.51. Prominent left adnexal vessels identified. No adnexal mass or f ree fluid. US/US pelvis w/ transvaginal IMPRESSION: Retrover donavon uterus. Unremarkable endometrial complex and ovaries. No adnexal mass or f ree fluid. Prominent left adnexal vessels. May represent congestion. Impression dictated by: Pedro Joseph M.D.11/03/2024 9:15 PM Dictation Location: [place] [address] Electronically authenticated by: [id number] Y Date: 11/03/2024 21:15 Dictated By: Pedro Joseph D.O. Signed By: 11/03/242117 DD/ 14 TD/TT: Banking Pin Adjuster: MR head/brain wo/w con Reviewed date:01/04/2025 10:34:08 AM Interpretation: Performing Lab: Notes/Report: Source Facility: [place] [address] Magnetic Resonance Report Signed Patient: ZAINAB MARTINEZ MR#: [id number] : 1995 Acct:[id number] Age/Sex: 29 / F ADM Date: 01/01/25 Loc: MRI Attending Dr: Jax Lane M.D. Ordering Physician: Jax Lane M.D. Date of Service: 01/01/25 Procedure(s): MR head/brain wo/w con Accession Number(s): [id number] cc: ERIN SAMS ; Jax Lane M.D. [place] [address] Patient Name: ZAINAB MARTINEZ MRN: [id number] date: 1995 Sex: F Assigned Patient Location: MRI Current Patient Location: Accession/Order Number: [id number] Exam Date: 01/02/2025 01:06 Report Date: 01/02/2025 01:11 At the request of: JAX LANE MD Procedure: MR head/brain wo/w con MR head/brain wo/w con 01/01/2025 4:08 PM SIGN AND SYMPTOMS: Migraine headaches with aura, nausea, photosensitivity PROTOCOL: Multiplanar multisequence MR images of the brain with and without IV contrast CONTRAST: 14 mL of intravenous Dotarem COMPARISON: 04/28/2023 FINDINGS: Extra axial spaces: Age appropriate. Hemorrhage: None. Ventricular system: Within normal limits. Basal cisterns: Within normal limits and not effaced. Cerebral parenchyma: There are a few punctate nonspecific foci of T2 and T2 FLAIR hyperintense signal in the subcortical white matter of the parietal lobes. Midline shift: None.. Cerebellum: Within normal limits. Brainstem: Within normal limits. OTHER: Calvarium: Normal marrow signal. Vascular system: Satisfactory flow voids within the anterior and posterior circulation. There is narrowing of the posterior and lateral aspects of the transverse sinuses. Visualized Paranasal sinuses: Within normal limits. Visualized Orbits: Within normal limits. Visualized upper cervical spine: Within normal limits. Sella and skull base: There is mild flattening of the pituitary within the sella. MR/MR head/brain wo/w con IMPRESSION: No acute intracranial pathology or abnormal postcontrast enhancement. There is flattening of the dome of the pituitary which is atypical for the patient's age. This along with flattening of the posterior and lateral aspect of the transverse sinuses is suspicious for intracranial hypertension. Impression dictated by: Jagdeep Bennett M.D. 01/02/2025 1:11 AM Dictation Location: [place] [address] Electronically authenticated by: [id number] Y Date: 01/02/2025 01:11 Dictated By: Jagdeep Bennett M.D. Signed By: 01/02/25 0114 DD/ 011 TD/TT: Banking Pin Adjuster: [place] [address] Magnetic Resonance Report Signed Patient: NYLA MARTINEZ MR#: [id number] : 1995 Acct:[id number] Age/Sex: 29 / F ADM Date: 01/01/25 Loc: MRI Attending Dr: Jax haley M.D. Ordering Physician: Jax Lane M.D. Date of Service: 01/01/25 Procedure(s): MR head/brain wo/w con Accession Number(s): [id number] cc: ERIN SAMS ; Jax Lane M.D. [address] [address] Patient Name: ZAINAB MARTINEZ MRN: [id number]:[id number] date: 1995 Sex: F Assigned Patient Location: MRI Current Patient Location: Accession/Order Numb er: [id number] Exam Date: 01/02/2025 01:06 Report Date: 01/02/2025 01:11 At the request of: JAX LANE MD Procedure: MR head/brain wo/w con MR head/brain wo/w c on 01/01/2025 4:08 PM SIGN AND SYMPTOMS: Migraine headaches with aura, nausea, photosensitivity PROTOCOL: Multiplana r multisequence MR images of the brain with and without IV contrast CONTRAST: 14 mL of intravenous Dotarem COMPARISON: 04/28/2023 FINDINGS: Extra axial spaces: Age appropriate. Hemorrhage: None. Ventricular system: Within normal limits. Basal cisterns: With in normal limits and not effaced. Cerebral parenchyma: There are a few punctate nonspecific foci of T2 and T2 FLAIR hyperintense signal in the subcortical white matter of the parietal lobes. Midline shift: None.. Cerebellum: Within normal limits. Brainstem: Within normal limits. OTHER: Calvarium: Normal marrow signal. Vascular system: Satisfactory flow voids within the anterior and posterior circulation. There i s narrowing of the posterior and lateral aspects of the transverse sinuses. Visualized Paranasal sinuses: Within normal limits. Visualized Orbits: Within normal limits. Visualized upper cervical spine: Within normal limits. Sella and skull base : There is mild flattening of the pituitary within the sella. MR/MR head/brain wo/w con IMPRESSION: No acute intracrania l pathology or abnormal postcontrast enhancement. There is flattening of the dome of the pituitary which is atypical for the patient's age. This along with flattening of the posterior and lateral aspect of the transverse sinuses is suspicious for intracranial hypertension. Impression dictated by: Jagdeep Bennett M.D. 01/02/2025 1:11 AM Dictation Location: [place] [address] Electronically authenticated by: [id number] Y Date: 01/02/2025 01:11 Dictated By: Jagdeep Bennett M.D. Signed By: 01/02/25 0114 DD/ 0111 TD/TT: Banking Pin Adjuster: MR venography head wo con Reviewed date:01/04/2025 10:34:08 AM Interpretation: Performing Lab: Notes/Report: Source Facility: [place] [address] Magnetic Resonance Report Signed Patient: ZAINAB MARTINEZ MR#: [id number] : 1995 Acct:[id number] Age/Sex: 29 / F ADM Date: 01/01/25 Loc: MRI Attending Dr: Jax Lane M.D. Ordering Physician: Jax Lane M.D. Date of Service: 01/01/25 Procedure(s): MR venography head wo con Accession Number(s): [id number] cc: ERIN SAMS ; Jax Lane M.D. [place] [address] Patient Name: ZAINAB MARTINEZ MRN: [id number] date: 1995 Sex: F Assigned Patient Location: MRI Current Patient Location: Accession/Order Number: [id number] Exam Date: 01/02/2025 01:11 Report Date: 01/02/2025 01:13 At the request of: JAX LANE MD Procedure: MR venography head wo con MR venography head wo con 01/01/2025 4:08 PM SIGNS AND SYMPTOMS: progression of migraine with history of neuroendocrine tumor PROTOCOL: Axial 2-D [id number] MRV with 3-D reconstructions COMPARISON: None FINDINGS: The superior sagittal sinus, transverse sinuses, sigmoid sinuses, and proximal internal jugular veins are patent. There is narrowing of the posterior and lateral aspects of the transverse sinuses bilaterally with right dominant venous drainage which is a normal variant. Straight sinus, vein of Eloy, basal veins of Meredith, and great cerebral veins are patent. The veins of Bety and Trolard are patent. MR/MR venography head wo con IMPRESSION: There is flattening of the posterior and lateral aspects of the transverse sinuses suspicious for intracranial hypertension. No evidence of dural venous thrombosis. Impression dictated by: Jagdeep Bennett M.D. 01/02/2025 1:13 AM Dictation Location: [place] [address] Electronically authenticated by: [id number] Y Date: 01/02/2025 01:13 Dictated By: Jagdeep Bennett M.D. Signed By: 01/02/25114 DD/ 2 TD/TT: Banking Pin Adjuster: [place] [address] Magnetic Resonance Report Signed Patient: NYLA MARTINEZ MR#: [id number] : 1995 Acct:[id number] Age/Sex: 29 / F ADM Date: 01/01/25 Loc: MRI Attending Dr: Jax haley M.D. Ordering Physician: Jax Lane M.D. Date of Service: 01/01/25 Procedure(s): MR venography head wo con Accession Number(s): [id number] cc: ERIN SAMS ; Jax Lane M.D. [place] [address] Patient Name: ZAINAB MARTINEZ MRN: [id number] date: 1995 Sex: F Assigned Patient Location: MRI Current Patient Location: Accession/Order Numb er: [id number] Exam Date: 01/02/2025 01:11 Report Date: 01/02/2025 01:13 At the request of: JAX LANE MD Procedure: MR venography head wo con MR venography head w o con 01/01/2025 4:08 PM SIGNS AND SYMPTOMS: progression of migra ine with history of neuroendocrine tumor PROTOCOL: Axial 2-D gxgz-il-ikkhov MRV with 3-D reconstructions COMPARISON: None FINDINGS: The superior sagitta l sinus, transverse sinuses, sigmoid sinuses, and proximal internal jugular vei ns are patent. There is narrowing of the posterior and lateral aspects of t he transverse sinuses bilaterally with right dominant venous drainage whic h is a normal variant. Straight sinus, vein of Eloy, basal veins of Meredith, and great cerebral veins are patent. The veins of Bety and Trolard ar e patent. MR/MR venography head wo con IMPRESSION: There is flattening of the posterior and lateral aspects of the transverse sinuses suspicious f or intracranial hypertension. No evidence of dural venous thrombosis. Impression dictated by: Jagdeep Bennett M.D. 01/02/2025 1:13 AM Dictation Location: [place] [address] Electronically authenticated by: [id number] Y Date: 01/02/2025 01:13 Dictated By: Jagdeep Bennett M.D. Signed By: 01/02/25114 DD/ 2 TD/TT: Banking Pin Adjuster: HCG Qualitative* Reviewed date:05/03/2024 08:09:01 AM Interpretation: Performing Lab: Notes/Report: [facility] , HCG Qualitative NEGATIVE NEGATIVE Performing Lab: see note ML - [facility] Urine Culture - [facility] Reviewed date:11/06/2024 02:23:24 PM Interpretation: Performing Lab: Notes/Report: [facility] , Urine Culture - [facility] See Below For Report >100,000 colonies/ml mixed Urine Culture - [facility] Urine Culture - [facility] bacterial skin contaminants >100,000 colonies/ml mixed Urine Culture - [facility] Urine Culture - [facility] 2 Days >100,000 colonies/ml mixed Urine Culture - [facility] Urine Culture - [facility] >100,000 colonies/ml mixed Urine Culture - [facility] Urine Culture - [facility] Testing performed a [facility] >100,000 colonies/ml mixed Urine Culture - [facility] Urine Culture - [facility] [address] [place] [address] >100,000 colonies/ml mixed Urine Culture - [facility] Performing Lab: see note ML - [facility] LB Reason For Referral No Information Medications Medication SIG (Take, Route, Frequency, Duration) Notes Start Date End Date Status Albuterol Sulfate HFA 108 (90 Base) MCG/ACT 1 puff as needed Inhalation every 4 hrs 05/09/2024 Active lamoTRIgine ER 50 MG 1 tablet Orally Onc e a day for 30 days Active Semaglutide Active PROzac 20 MG 1 capsule Orally Onc e a day for 30 days Active Methocarbamol 750 MG 1 tablet Orally HS prn for 10 days 07/17/2024 Unknown Omeprazole 20 MG 1 capsule 1/2 to 1 h our before morning meal Orally Once a day for 90 days 05/22/2024 Unknown Diclofenac Sodium 75 MG 1 tablet as need ed Orally Twice a day for 30 days 07/17/2024 Unknown Social History Tobacco Use: Social History Observation Description Date Details (start date - stop date) Never Smoker NA - NA Tobacco Use/Smoking Question Answer Notes Patient is a nonsmoker Alcohol Screen (Audit-C) Question Answer Notes Did you have a drink containing alcohol in the p ast year? No Points 0 Interpretation Negative AUDIT-C (Standard) Question Answer Notes Did you have a drink containing alcohol in the p ast year? No Points 0 Interpretation Negative Problems Problem Type SNOMED Code ICD Code Onset Dates Problem Status W/U Status Risk Notes Problem 409986187 Calculus of gallbladder without cholecystitis without obstruction (K80.20) Active confirmed Problem 40209011 Vitamin D deficiency, unspecified (E55.9) Active confirmed Problem Iron deficiency (76671746) Iron deficiency (E61.1) Active confirmed Problem Borderline personality disorder (14556887) Borderline personality disorder (F60.3) Active confirmed Problem 916316361 Fatty (change of ) liver, not elsewhere classified (K76.0) Active confirmed Problem Fibromyalgia (598830863) Fibromyalgia (M79.7) Active confirmed Problem Tachycardia (7271864) Tachycardia (R00.0) Active confirmed Problem Chronic fatigue syndrome (92865706) Chronic fatigue syndrome with fibromyalgia (R53.82) Active confirmed Problem Leg pain (72756754) Leg pain (M79.606) Active c onfirmed Problem Sciatica (02969661) Sciatica (M54.30) Active co nfirmed Problem Polyarthralgia (50011617) Polyarthralgia (M25.50) Active confirmed Problem Raised antinuclear antibody (182297449) HUNTER positive (R76.8) Active confirmed Problem Hyperinsulinemia (18019113) Hyperinsulinemia (E16.1) Active confirmed Problem Mixed anxiety and depressive disorder (512220324) Anxiety and depression (F41.9) Active confirmed Problem Atypical squamous cells of undetermined significance on cervical Papanicolaou smear (017625957) ASCUS of cervix with negative high risk HPV (R87.610) Active confirmed Problem Neuroendocrine carcinoma (015431740) Neuroendocrine carcinoma (C7A.8) Active confirmed Problem Breast lump (27897294) Breast lump in female (N63.0) Active confirmed Problem 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 Problem Chronic fatigue syndrome (disorder) (89656085) 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 Vital Signs Temperature 98.6 degrees Fahrenheit 11/02/2024 Blood pressure diastolic 62 mm Hg 11/02/2024 Height 61 in 11/02/2024 Blood pressure systolic 118 mm Hg 11/02/2024 Weight 152.4 lbs 11/02/2024 BMI 28.79 kg/m2 11/02/2024 Encounters Encounter Location Date Provider Diagnosis [facility] [address] [place] [address] 03/27/2024 Erin Sams Breast lump in female N63.0 [facility] [address] [place] [address] 04/03/2024 Erin Sams [facility] [address] [place] [address] 05/09/2024 Erin Sams [facility] [address] [place] [address] 05/22/2024 Erin Sams [facility] [address] [place] [address] 06/07/2024 Erin Sams [facility] [address] [place] [address] 07/21/2024 Erin Sams Sciatica M54.30 [facility] [address] [place] [address] 08/25/2024 Erin Sams [facility] [address] [place] [address] 09/01/2024 Erin Sams [facility] [address] [place] [address] 11/06/2024 Erin Sams [facility] [address] [place] [address] 11/06/2024 Erin Sams Frequency R35.0 [facility] [address] [place] [address] 07/17/2024 Erin Stevo Back pain M54.9 [facility] [address] [place] [place] [address] 03/24/2024 Erin Stevo Breast lump N63.0 [facility] [address] [place] [place] [address] 11/02/2024 Erin Stevo Pelvic pain in female R10.2 Assessments Encounter Date Diagnosis (ICD Code) Assessment Notes Treatment Notes Treatment Clinical Notes Section Notes 03/24/2024 Breast lump (ICD-10 - N63.0) 6-7 oclock soft lump , moveable no redness no drainage 07/17/2024 Back pain (ICD-10 - M54.9) 11/02/2024 Pelvic pain in female (ICD-10 - R10.2) fu OBGYN with US results 03/27/2024 Breast lump in female (ICD-10 - N63.0) 07/21/2024 Sciatica (ICD-10 - M54.30) 11/06/2024 Frequency (ICD-10 - R35.0) Plan Of Treatment Pending Test Test Name Order Date CMP (COMPLETE METABOLIC PANEL) UA (URINALYSIS, COMPLETE) 01/11/2024 UA (URINALYSIS, COMPLETE) 11/02/2024 UA (URINALYSIS, COMPLETE) 01/14/2024 UA (URINALYSIS, COMPLETE) 11/06/2024 CULTURE, URINE w SENSITIVITY 01/11/2024 CULTURE, URINE w SENSITIVITY 01/14/2024 CULTURE, URINE w SENSITIVITY 11/06/2024 IRON, TOTAL 12/10/2022 CBC WITH DIFF 12/10/2022 VITAMIN D, 25 LEVEL (TOTAL) 12/10/2022 XR Lumbar Spine (2-3 views) * 10/08/2023 CT Abdomen and Pelvis w/contrast * 12/16 MRI Lumbar Spine w/o contrast 07/21/2024 UA DIP NONAUTO WO MICRO (06188) - IN OFF ICE 11/02/2024 Urine Culture 11/02/2024 C DIFF TOX PCR STOOL 10/06/2023 GI PANEL (PCR) 03/02/2023 STOOL CULTURE 10/06/2023 US ABD 02/18/2023 US PELVIS AND TRANSVAG 11/02/2024 MM diagnostic mammo BI 03/24/2024 BI US BREAST COMPLETE BILATERAL 03/27/20 24 URINALYSIS MICROSCOPIC 01/14/2024 URINALYSIS MICROSCOPIC 11/06/2024 URINALYSIS MICROSCOPIC 01/11/2024 Insurance Providers Payer Name Payer Address Payer Phone Subscriber Number Group Number Insured Name Patient Relationship to Insured Coverage Start Date Coverage End Date [employer] [address] [place] [address] [id number] Zainab Martinez Self - patient is the insured Medical (General) History Medical History History ICD Code Tachycardia R00.0 Breast lump in female N63.0 HUNTER positive R76.8 Iron deficiency E61.1 Leg pain M79.606 ASCUS of cervix with negative high risk HPV R87.610 C. 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 Bria Mora 02/03/22 Hemicolectomy, RT 2021 Partial Small intestine removal 2021 Lymph nodes resection from abd 2021 Hospitalization History Reason Date(Month/Year) 08/2023 see above
--- OUTSIDE RECORDS SUMMARY | 2025-02-15 09:10 | XMS_ITS | Encounter Summary ---
Author Organization [facility] Address [address] [place] [place] [address] Care Team Providers Care Grill Cook Name Role Phone Unavailable Primary Care Provider Unavailabl e Encounter Details Date Type Department Care Team (Late Contact Info) Description 09/20/2023 Abstract [facility]ARDING [address] [facility] [place] [address] Ron Ruano DO [address] [facility] [address] Raghu Velasquez, [facility]11 Social History Tobacco Use Types [...] AM EDT Office Visit ALBERTO HARDING [address] [place] [address] Elayne Bush PA [address] [place] [address] documented as of this encounter Goals Goal Patient Goal Type Associated Problems Recent Progress Patient-Stated? Author Reminders Care Plan OB Reminders No Open Scheduling, Background documented as of this encounter Visit Diagnoses Not on filedocumented in this encounter Additional Health Concerns Active Problems Noted Date Diagnosed Date OB Reminders 03/15/2023 documented as of this encounter
--- OUTSIDE RECORDS SUMMARY | 2025-02-15 09:10 | XMS_ITS | Encounter Summary ---
Author Organization [facility] Address [address] [place] [address] Care Team Providers Care Csm Consultant Name Role Phone Connor Giraldo MD Unavailable [phone] Source Comments In the event this information is protected by the Federal Confidentiality of Alcohol and Drug AbusePatient Records regulations: The Federal rules restrict any use of the information to criminally investigate or prosecute any alcohol or drug abuse patient.[facility] Encounter Details Date Type Department Care Team (Late st Contact Info) Description 08/30/2024 [place] [address] Provider, Ccf Finanical Clearance Denied Social History [...] on filedocumented in this encounter Care Teams Csm Consultant Relationship Specialty Start Date End Date Connor Giraldo MD [address] [place] [address] Referring Family Medicine 2/11/25 documented as of this encounter
== END 2025-02-15 09:08 | disposition home or self-care (01) ==
LOC: PST 09:07
PROVIDERS: PCP Nurse Practitioner Family; Visit Provider Obstetrics & Gynecology
DX: Z01.818 Encounter for other preprocedural examination (principal); N94.89 Other specified conditions associated with female genital organs and menstrual cycle; R10.2 Pelvic and perineal pain

== ENCOUNTER 2025-03-21 14:57 | Outpatient (OUT) | payer OTHER, SELFPAY ==
--- OUTSIDE RECORDS SUMMARY | 2025-03-21 15:02 | XMS_ITS | Encounter Summary ---
Author Organization [facility] enter Address [address] [place] [address] Care Team Providers Care Print Binding And Finishing Worker Name Role Phone Rodney Olivas MD Unavailable Cheikh Coelho MD Unavailable Unavailable Erin Whiteside CNP Primary Care Provider + Lavenr Paul MD, MPH Unavailable [phone] Ron Ruano DO Unavailable [phone] Dolores Johnson ENVIRONMENTAL TECHNOLOGY PROFESSOR-MORTUARY BEAUTICIAN Unavailable [phone] Vinicius Gomes MD, PhD Unavailable [phone] Diego Apodaca MD Unavailable [phone] Reason for Visit * Reason Onset Date Comments Appointment 09/21/2024 Encounter Details Date Type Department Care Team (Late st Contact Info) Description 09/21/2024 Telephone Division of Medical Oncology [address] [address] Any Hayes, ENVIRONMENTAL TECHNOLOGY PROFESSOR-MORTUARY BEAUTICIAN [address] [address] Appointment Social History Tobacco Use Types Packs/Day [...] Care Team (Late st Contact Info) Description 08/01/2025 11:45 AM EST Clinical Support Encounter Clinical Lab Branden Hardinghouse [address] [place] [address] [place] [address] Lavern Paul MD, MPH [address] [place] [address] [place] [address] 08/01/2025 1:00 PM EST Appointment Imaging at [facility] [address] [place] [address] Lavern Paul MD, MPH [address] [facility] [address] [place] [address] 08/07/2025 12:00 PM EST Office Visit Division of Medical Oncology [address] [facility] [address] [place] [address] Lavern Paul MD, MPH [address] [address] documented as of this encounter Visit Diagnoses Not on filedocumented in this encounter Additional Health Concerns Assessment Noted Time PHQ-9 Depression Total Score: 0 11/08/19 24 9:40 AM EDT documented as of this encounter Care Teams Print Binding And Finishing Worker Relationship Specialty Start Date End Date Erin Whiteside CNP [address] [place] [address] PCP - General 03/10/23 Rodney Olivas MD Hematology 03/19/22 Cheikh Coelho MD Security Assurance Analyst Cardiovascular Disease 10/07/22 Lavern Paul MD, MPH [address] [facility] [place] [address] Oncologist Medical Oncology 03/31/23 Ron Ruano DO [address] [facility] [address] [place] [address] Obstetrics & Gynecology 04/06/23 Dolores Johnson, ENVIRONMENTAL TECHNOLOGY PROFESSOR-MORTUARY BEAUTICIAN [address] [facility] [address] [place] [address] Hadoop Application Developer Certified Nurse Practitioner 02/10/24 Vinicius Gomes MD, PhD [address] [facility] [address] [place] [address] Oncologist Medical Oncology 02/10/24 Diego Apodaca MD [address] [place] [address] Gastroenterology 02/16/24 documented as of this encounter
--- OUTSIDE RECORDS SUMMARY | 2025-03-21 15:02 | XMS_ITS | Encounter Summary ---
Author Organization [facility] Address [address] [place] [address] Care Team Providers Care High Raw Sugar Boiler Name Role Phone Rodney Olivas MD Unavailable Cheikh Coelho MD Unavailable Unavailable Erin Whiteside BUCKET CHUCKER Primary Care Provider [phone] Lavern Paul MD, MPH Unavailable [phone] Ron Ruano DO Unavailable [phone] Dolores Johnson APRN-BUCKET CHUCKER Unavailable [phone] Vinicius Gomes MD, PhD Unavailable [phone] Diego Apodaca MD Unavailable [phone] Reason for Visit * Reason Onset Date Comments Insurance 03/09/2025 Encounter Details Date Type Department Care Team (Late st Contact Info) Description 03/09/2025 Telephone Division of Medical Oncology [facility] [address] [place] [address] Pinky Morales, RUPERT Insurance Social History Tobacco Use Types Packs/Day [...] Date Author No 05/22/2022 3:44 PM EDT Farncia Chamberlain RN documented in this encounter Miscellaneous Notes * Telephone Encounter - Pinky Morales RN - 03/09/2025 8:13 AM EDT Images from the original note were not included. documented in this encounter Plan of Treatment Upcoming Encounters Date Type Department Care Team (Late st Contact Info) Description 08/01/2025 11:45 AM EST Clinical Support Encounter Clinical Lab Branden Kang [address] [place] [address] [place] [address] Lavern Paul MD, MPH [address] [place] [address] [place] [address] 08/01/2025 1:00 PM EST Appointment Imaging at [facility] [address] [place] [address] Lavern Paul MD, MPH [address] [place] [address] [place] [address] 08/07/2025 12:00 PM EST Office Visit Division of Medical Oncology [address] [place] [address] [place] [address] Lavern Paul MD, MPH [address] [place] [address] [place] [address] documented as of this encounter Visit Diagnoses Not on filedocumented in this encounter Additional Health Concerns Assessment Noted Time PHQ-9 Depression Total Score: 2 01/31/20 25 2:28 PM EDT documented as of this encounter Care Teams High Raw Sugar Boiler Relationship Specialty Start Date End Date Erin Whiteside CNP [address] [place] [address] PCP - General 03/10/23 Rodney Olivas MD Hematology 03/19/22 Cheikh Coelho MD Printed Circuit Photographer Cardiovascular Disease 10/07/22 Lavern Paul MD, MPH [address] [place] [address] Oncologist Medical Oncology 03/31/23 Ron Ruano DO [address] [facility] [address] [place] [address] Obstetrics & Gynecology 04/06/23 Dolores Johnson, IRRIGATION INSTALLATION SPECIALIST-BUCKET CHUCKER [address] [facility] [address] [place] [address] Cone Trucker Certified Nurse Practitioner 02/10/24 Vinicius Gomes MD, PhD [address] [facility] [address] [place] [address] Oncologist Medical Oncology 02/10/24 Diego Apodaca MD [address] [place] [address] Gastroenterology 02/16/24 documented as of this encounter
--- OUTSIDE RECORDS SUMMARY | 2025-03-21 15:02 | XMS_ITS | Encounter Summary ---
Author Organization [facility] Address [address] [place] [address] Care Team Providers Care Funeral Location Manager Name Role Phone Rodney Olivas MD Unavailable Archie Hugo MD, PhD Unavailable Unavailable Cheikh Coelho MD Unavailable Unavailable Erin Whiteside [facility] Primary Care Provider + Lavern Paul MD, MPH Unavailable [phone] Ron Ruano DO Unavailable [phone] Dolores Johnson [facility]NT[facility] Unavailable [phone] Vinicius Gomes MD, PhD Unavailable [phone] Diego Apodaca MD Unavailable [phone] Diego Apodaca MD Unavailable [phone] Reason for Visit * Reason Onset Date Comments Results 11/29/2023 Encounter Details Date Type Department Care Team (Late st Contact Info) Description 11/29/2023 Telephone Central Scheduling [address] [place] [address] Leigh Larsen Results Social History [...] earliest convenience.Thank you . CB# pt cell- [phone] * Telephone Encounter - Angel Galeana RN [...] Best time to reach patient: any time [phone] *Patient has been notified that they will be contacted within 24-48 hours. * documented in this encounter Plan of Treatment Upcoming Encounters Date Type Department Care Team (Late st Contact Info) Description 08/01/2025 11:45 AM EST Clinical Support Encounter Clinical Lab [facility] [address] [place] [address] [place] [address] Lavern Paul MD, MPH [address] [place] [address] [place] [address] 08/01/2025 1:00 PM EST Appointment Imaging at The [facility] [address] [place] [address] Lavern Paul MD, MPH [address] [place] [address] 08/07/2025 12:00 PM EST Office Visit Division of Medical Oncology [address] [place] [address] Lavern Paul MD, MPH [address] [place] [address] documented as of this encounter Visit Diagnoses Not on filedocumented in this encounter Additional Health Concerns Assessment Noted Time PHQ-9 Depression Total Score: 0 11/08/19 9:40 AM EDT documented as of this encounter Care Teams Funeral Location Manager Relationship Specialty Start Date End Date Erin Whiteside CHOCOLATE PACKER [address] [place] [address] PCP - General 03/10/23 Rodney Olivas MD Hematology 03/19/22 Archie Hugo MD, PhD Surgeon Surgical Oncology 07/08/22 02/10/24 hCeikh Coelho MD Credit Report Checker Cardiovascular Disease 10/07/22 Lavern Paul MD, MPH [address] [place] [address] Oncologist Medical Oncology 03/31/23 Ron Ruano DO [address] [place] [address] Obstetrics & Gynecology 04/06/23 Dolores Johnson APRN-CHOCOLATE PACKER [address] [place] [address] Mental Hygiene Consultant Certified Nurse Practitioner 02/10/24 Vinicius Gomes MD, PhD [address] [facility] [address] [place] [address] Oncologist Medical Oncology 02/10/24 Diego Apodaca MD [address] [address] [place] [address] Mental Hygiene Consultant Internal Medicine 02/11/24 02/15/24 Diego Apodaca MD [address] [place] [address] Gastroenterology 02/16/24 documented as of this encounter
--- OUTSIDE RECORDS SUMMARY | 2025-03-21 15:02 | XMS_ITS | Encounter Summary ---
Author Organization [facility] Address [address] [place] [address] Care Team Providers Care Homicide Squad Captain Name Role Phone Connor Giraldo MD Unavailable [phone] Source Comments In the event this information is protected by the Federal Confidentiality of Alcohol and Drug AbusePatient Records regulations: The Federal rules restrict any use of the information to criminally investigate or prosecute any alcohol or drug abuse patient.[facility] Encounter Details Date Type Department Care Team (Late st Contact Info) Description 08/30/2024 [place] [address] Provider, Ccf Finanical Clearance Denied Social History [...] on filedocumented in this encounter Care Teams Homicide Squad Captain Relationship Specialty Start Date End Date Connor Giraldo MD [address] [place] [address] Referring Family Medicine 2/11/25 documented as of this encounter
--- OUTSIDE RECORDS SUMMARY | 2025-03-21 15:02 | XMS_ITS | Encounter Summary ---
Author Organization [facility] enter Address [address] [address] Care Team Providers Care Web Content Coordinator Name Role Phone Rodney Olivas MD Unavailable Cheikh Coelho MD Unavailable Unavailable Erin Whiteside EXPLOSIVE ORDNANCE HANDLER Primary Care Provider [phone] Lavern Paul MD, MPH Unavailable [phone] Ron Ruano DO Unavailable [phone] Dolores Johnson APRN-EXPLOSIVE ORDNANCE HANDLER Unavailable [phone] Vinicius Gomes MD, PhD Unavailable [phone] Diego Apodaca MD Unavailable [phone] Reason for Visit * Reason Onset Date Comments Visit Preparation 06/05/2024 Encounter Details Date Type Department Care Team (Late st Contact Info) Description 06/05/2024 Telephone Division of Medical Oncology [address] [facility] [address] [place] [address] Yina Amaya, RUPERT Visit Preparation [...] Encounter Clinical Lab Branden [facility] [address] [place] [address] Lavern Paul MD, MPH [address] [facility] [place] [address] 08/01/2025 1:00 PM EST Appointment Imaging at [facility] [address] [facility] [place] [phone] Lavern Paul MD, MPH [address] [facility] [place] [address] 08/07/2025 12:00 PM EST Office Visit Division of Medical Oncology [address] [facility] [place] [address] Lavern Paul MD, MPH [address] [address] documented as of this encounter Visit Diagnoses Not on filedocumented in this encounter Additional Health Concerns Assessment Noted Time PHQ-9 Depression Total Score: 0 11/08/19 24 9:40 AM EDT documented as of this encounter Care Teams Web Content Coordinator Relationship Specialty Start Date End Date Erin Whiteside CNP [address] [place] [address] PCP - General 03/10/23 Rodney Olivas MD Hematology 03/19/22 Cheikh Coelho MD Technical Services Analyst Cardiovascular Disease 10/07/22 Lavern Paul MD, MPH [address] [place] [address] Oncologist Medical Oncology 03/31/23 Ron Ruano DO [address] [facility] 1 [facility] [place] [address] Obstetrics & Gynecology 04/06/23 Dolores Johnson, STRUCTURAL ANALYSIS ENGINEER-EXPLOSIVE ORDNANCE HANDLER [address] [facility] [address] [place] [address] Financial Aid Director Certified Nurse Practitioner 02/10/24 Vinicius Gomes MD, PhD [address] [facility] 1 [place] [address] Oncologist Medical Oncology 02/10/24 Diego Apodaca MD [address] [place] [address] Gastroenterology 02/16/24 documented as of this encounter
--- OUTSIDE RECORDS SUMMARY | 2025-03-21 15:02 | XMS_ITS | Encounter Summary ---
Author Organization [facility] enter Address [address] [place] [address] Care Team Providers Care Api Developer Name Role Phone Erin Whiteside RN Primary Care Provider Unavaila Rodney Morrell MD Unavailable Archie Hugo MD, PhD Unavailable Unavailable Cheikh Coelho MD Unavailable Unavailable Erin Whiteside HAND PAINTER Primary Care Provider + Lavern Paul MD, MPH Unavailable [phone] Ron Ruano DO Unavailable [phone] Dolores Johnson EDUCATION SPEC-HAND PAINTER Unavailable [phone] Vinicius Gomes MD, PhD Unavailable [phone] Diego Apodaca MD Unavailable [phone] Diego Apodaca MD Unavailable [phone] Reason for Visit * Reason Onset Date Comments Insurance 05/13/2022 Encounter Details Date Type Department Care Team (Late st Contact Info) Description 05/13/2022 Telephone Division of Surgical Oncology [address] [place] 10[address] [place] [address] Archie Hugo MD, PhD Insurance [...] follows: Call came in from pt insurance, [place], regarding auth for surgery. Please review and contact them to discuss/update: Antonio from pt Insurance wanted to make sure pre auth was approved for surgery with Dr. Hugo on 05/22. Requesting call back on [phone]. Thanks! * Telephone Encounter - Lianet Carcamo - 05/13/2022 11:40 AM EDT Antonio from pt Insurance wanted to make sure pre auth was approved for surgery with Dr. Hugo on 05/22. Requesting call back on [phone]. Thanks! documented in this encounter Plan of Treatment Upcoming Encounters Date Type Department Care Team (Late st Contact Info) Description 08/01/2025 11:45 AM EST Clinical Support Encounter Clinical Lab Branden Hardinghouse [address] [place] [address] [place] [phone] Lavern Paul MD, MPH [address] [phone] 08/01/2025 1:00 PM EST Appointment Imaging at The [facility] [address] [place] [address] Lavern Paul MD, MPH [address] [address] 08/07/2025 12:00 PM EST Office Visit Division of Medical Oncology [address] [phone] Lavern Paul MD, MPH [address] [facility] 10th [place] [address] documented as of this encounter Visit Diagnoses Not on filedocumented in this encounter Care Teams Api Developer Relationship Specialty Start Date End Date Erin Whiteside, RN PCP - General 03/19/22 03/09/23 Erin Whiteside, HAND PAINTER [address] [place] [address] PCP - General 03/10/23 Rodney Olivas MD Hematology 03/19/22 Archie Hugo MD, PhD Surgeon Surgical Oncology 07/08/22 02/10/24 Cheikh Coelho MD Hr Shared Services Consultant Cardiovascular Disease 10/07/22 Lavern Paul MD, MPH [address] [place] [address] Oncologist Medical Oncology 03/31/23 Ron Ruano DO [address] [place] [address] Obstetrics & Gynecology 04/06/23 Dolores Johnson APRN-HAND PAINTER [address] [place] [address] Operating Room Orderly Certified Nurse Practitioner 02/10/24 Vinicius Gomes MD, PhD [address] [place] [address] Oncologist Medical Oncology 02/10/24 Diego Apodaca MD [address] [facility] 1 [place] [address] Operating Room Orderly Internal Medicine 02/11/24 02/15/24 Diego Apodaca MD [address] [place] [address] Gastroenterology 02/16/24 documented as of this encounter
--- OUTSIDE RECORDS SUMMARY | 2025-03-21 15:02 | XMS_ITS | Encounter Summary ---
Author Organization [facility] Address [id number] [address] [place] [address] Care Team Providers Care Mc Kay Stitcher Name Role Phone Erin Whiteside APRN-RADIATION PHYSICIST Primary Care Provider Encounter Details Date Type Department Care Team (Late st Contact Info) Description 06/21/2023 Telephone [facility] General Surgery-Trauma [address] [place] [phone] Iris Medel CMA Social History Tobacco Use [...] declined 02/18/2022 How often do you attend confucianism or taoist serv ices? Never 02/18/2022 Do you belong to any clubs o r organizations such as confucianism groups, unions, fraternal or athletic groups, or [...] Answer Date Recorded Total Score 16 02/18/2022 [facility]ational Stress Questionnaire [...] Recorded Do you need help finding a [facility] career center and/or a training program? [...] documented as of this encounter Care Teams Mc Kay Stitcher Relationship Specialty Start Date End Date Erin Whiteside, AUTOMOTIVE SERVICES MANAGER-RADIATION PHYSICIST [address] [place] [address] PCP - General Family Medicine 02/11/22 documented as of this encounter
--- OUTSIDE RECORDS SUMMARY | 2025-03-21 15:02 | XMS_ITS | Encounter Summary ---
Author Organization [facility] enter Address [address] [place] [address] Care Team Providers Care Solution Lead Name Role Phone Rodney Olivas MD Unavailable Cheikh Coelho MD Unavailable Unavailable Erin Whiteside FLAME GOUGER Primary Care Provider [phone] Lavern Paul MD, MPH Unavailable [phone] Ron Ruano DO Unavailable [phone] Dolores Johnson APRN-FLAME GOUGER Unavailable [phone] Vinicius Gomes MD, PhD Unavailable [phone] Diego Apodaca MD Unavailable [phone] Reason for Visit * Reason Onset Date Comments Medication Refill 04/05/2024 Encounter Details Date Type Department Care Team (Late st Contact Info) Description 04/05/2024 Telephone Division of Medical Oncology [address] [address] Lavern Paul MD, MPH [address] [address] Medication Refill Social History Tobacco [...] AM EST Clinical Support Encounter Clinical Lab [facility] 1 [address] [place] [address]st [place] [phone] Lavern Paul MD, MPH [address] [facility] 10th [place] [address] 08/01/2025 1:00 PM EST Appointment Imaging at The [facility] [address] [place] [phone] Lavern Paul MD, MPH [address] [phone] 08/07/2025 12:00 PM EST Office Visit Division of Medical Oncology [address] [phone] Lavern Paul MD, MPH [address] [phone] documented as of this encounter Visit Diagnoses Not on filedocumented in this encounter Additional Health Concerns Assessment Noted Time PHQ-9 Depression Total Score: 0 11/08/19 24 9:40 AM EDT documented as of this encounter Care Teams Solution Lead Relationship Specialty Start Date End Date Erin Whiteside CNP [address] [place] [address] PCP - General 03/10/23 Rodney Olivas MD Hematology 03/19/22 Cheikh Coelho MD Ell Tutor Cardiovascular Disease 10/07/22 Lavern Paul MD, MPH [address] [facility] [place] [phone] Oncologist Medical Oncology 03/31/23 Ron Ruano DO [address] [facility] 1 [place] [address] Obstetrics & Gynecology 04/06/23 Dolores Johnson, [facility] [address] [facility] 1 [place] [address] Capacitor Tester Certified Nurse Practitioner 02/10/24 Vinicius Gomes MD, PhD [address] [place] [address] Oncologist Medical Oncology 02/10/24 Diego Apodaca MD [address] [place] [address] Gastroenterology 02/16/24 documented as of this encounter
--- OUTSIDE RECORDS SUMMARY | 2025-03-21 15:02 | XMS_ITS | Clinical Summary ---
Author Organization [facility] Address [address] [place] [address] [place] [address] Care Team Providers Care Intermediate School Teacher Name Role Phone Rodney Olivas MD Unavailable Cheikh Coelho MD Unavailable Unavailable Erin Whiteside MEDICAL CHARGE ENTRY SPECIALIST Primary Care Provider + Lavern Paul MD, MPH Unavailable [phone] Ron Ruano DO Unavailable [phone] Dolores Johnson APRN-[facility] Unavailable [phone] Vinicius Gomes MD, PhD Unavailable [phone] Diego Apodaca MD Unavailable [phone] Allergies Active Allergy Reactions Criticality Noted Date [...] needed for Nausea / Vomiting. 60 tablet 11 5 07/07/20 25 Active Galcanezumab-gnl m 120 MG/ML Solution Auto-injectorInd ications:Chronic migraine without aura without status migrainosus, not intractable Inject 240 mg under the skin once for 1 dose. 2 mL 5 Active Galcanezumab-gnl m (Emgality) 120 MG/ML Solution [...] Encounters Date Type Department Care Team Description 03/09/2025 Telephone Division of Medical Oncology [address] [phone] Pinky Morales, RUPERT Insurance 02/27/2025 Telephone Division of Medical Oncology [address] [phone] Pinky Morales, RUPRET Insurance 02/07/2025 Telephone Division of Medical Oncology [address] [phone] Geneva Moncada RN Outside Medical Records Request 02/06/2025 Telephone Division of Medical Oncology [address] [place] [phone] Geneva Moncada RN Medication Follow-up; Appointment; Labs Only 01/31/2025 Telephone Division of Medical Oncology [address] [place] [phone] Yina Amaya RN Post-Visit Follow Up 01/30/2025 2:30 PM EDT Telemedicine Division of Medical Oncology [address] [place] [phone] Christopher Moralez APRN-TASH Diarrhea, unspecified type (Primary Dx); Primary malignant neuroendocrine tumor of appendix 01/29/2025 Telephone Division of Endocrinology [address] [phone] Christopher Moralez APRN-TASH Cancellation 01/29/2025 Telephone Division of Medical Oncology [address] [phone] Any Medrano RN Appointment 01/25/2025 Results Follow-Up Division of Medical Oncology [address] [phone] Christopher Moralez APRN-CNP CT ABDOMEN/PELVIS WITH AND WITHOUT CONTRAST 01/22/2025 9:49 AM EDT - 01/22/2025 11:59 PM EDT Hospital Encounter Imaging at [facility] [address] [address] Christopher Moralez APRN-CNP Discharge Disposition: Home or Self Care 01/22/2025 9:30 AM EDT Clinical Support Encounter Clinical Lab [facility] [address] [phone] Christopher Moralez FARMWORKERS-Any Bassett FARMWORKERS-Sherron Sanon RN Primary malignant neuroendocrine tumor of appendix 01/21/2025 Results Follow-Up [facility] [address] [place] [phone] Roge Yanes MD MRI BRAIN (OUTSIDE IMAGE), MRI BRAIN (OUTSIDE IMAGE) 12/28/2024 Medication Management [facility] [address] 12th [place] [address] Roge Yanes MD 12/25/2024 Results Follow-Up [facility] [address] [place] [phone] Shannan Pleitez MD URINE PROTEIN/CREA RATIO, RANDOM, CYCLIC CITRULLINATE PEPTIDE AB, RHEUMATOID FACTOR, Additional followed-up results: 9 12/21/2024 9:00 AM EDT Office Visit [facility] [address] [place] [phone] Shannan Pleitez MD 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 [address] 12[address] [place] [address] Roge Yanes MD Migraine (Worsening migraine. No [...] EST Clinical Support Encounter Clinical Lab [facility] [place] 1 [address] [place] [address] Lavern Paul MD, MPH [address] [phone] 08/01/2025 1:00 PM EST Appointment Imaging at [facility] [address] [place] [address] Lavern Paul MD, MPH [address] [phone] 08/07/2025 12:00 PM EST Office Visit Division of Medical Oncology [address] [phone] Lavern Paul MD, MPH [address] 10[address] [place] [address] Health Maintenance Due Date Last Done Comments [...] error, please notify the sender immediately at [phone] and permanently delete the original report and [...] in error, please notify the sender immediatelyat [phone] and permanently delete the original report and destroy anycopies or printouts. Any Hayes FARMWORKERS-MEDICAL CHARGE ENTRY SPECIALIST CT ORDERABLES Final Re sult * CBC AND ELECTRONIC DIFF (01/22/2025 9:41 AM EDT) Only the most recent of2 resultswithin the time period is included. WBC Count 6.65 3.99 - 11.19 K/uL 01/22/2025 9:47 AM EDT [facility] RBC Count 4.76 3.91 - 5.04 M/uL 01/22/2025 9:47 AM EDT [facility] Hemoglobin 13.4 11.4 - 15.2 g/dL 01/22/2025 9:47 AM EDT [facility] Hematocrit 40.8 34.9 - 44.3 % 01/22/2025 9:47 AM EDT [facility] Mean Cell Volume 85.7 79.6 - 97.7 fL 01/22/2025 9:47 AM EDT [facility] Mean Cell Hgb 28.2 25.9 - 33.9 pg 01/22/2025 9:47 AM [facility] Mean Cell Hgb Conc 32.8 31.4 - 35.9 g/dL 01/22/2025 9:47 AM [facility] RBC Distribution 12.3 10.8 - 14.9 % 01/22/2025 9:47 AM [facility] Platelet Count 337 150 - 393 K/uL 01/22/2025 9:47 AM [facility] Mean Platelet Volume 9.5 8.5 - 12.2 fL 01/22/2025 9:47 AM [facility] DIFF STATUS Electronic Differential 01/22/2025 9:47 AM [facility] Segs + Bands Auto 57.4 % 01/22/2025 9:47 AM [facility] Immature Grans % 0.3 % 01/22/2025 9:47 AM [facility] Lymphocyte % Auto 31.0 % 01/22/2025 9:47 AM [facility] Monocyte % Auto 6.9 % 9:47 AM [facility] Eosinophil % Auto 3.6 % 01/22/2025 9:47 AM [facility] Basophil % Auto 0.8 % 9:47 AM [facility] Nucleated RBC 0.0 <=0.2 /100 WBC 01/22/2025 9:47 AM [facility] Segs + Bands,Absolute Auto 3.82 1.64 - 7.28 K/uL 01/22/2025 9:47 AM [facility] Immature Grans Absolute <0.04 <=0.08 K/uL 01/22/2025 9:47 AM [facility] Abs Lymph Auto 2.06 1.16 - 3.51 K/uL 01/22/2025 9:47 AM [facility] Abs [place] Auto 0.46 0.22 - 0.87 K/uL 01/22/2025 9:47 AM [facility] Abs Eos Auto 0.24 0.00 - 0.42 K/uL 01/22/2025 9:47 AM EDT [facility] Abs Baso Auto 0.05 0.00 - 0.15 K/uL 01/22/2025 9:47 AM EDT [facility] Blood Venipuncture / Unknown 01/22/2025 9:41 AM EDT 01/22/2025 9:45 AM EDT Any Hayes FARMWORKERS-MEDICAL CHARGE ENTRY SPECIALIST HEMATOLOGY ORDERABLES Fi nal Result [facility] [address] [place] [address] * CHROMOGRANIN A (01/22/2025 9:41 AM EDT) Chromogranin A 29 <93 ng/mL 01/24/2025 12:37 PM EDT [facility] [employer] Comment: ADDITIONAL INFORMATION The testing method is a homogeneous time-resolved immunofluorescent assay manufactured by [employer] and performed on the [employer] Kryptor Compact Plus. Values obtained with different [...] examination and other findings. Test Performed by: [facility] - [address] [address] Historic Site Administrator: Jami Sher Ph.D.; CLIA# [id number] Blood Venipuncture / Unknown 01/22/2025 9:41 AM EDT 01/22/2025 9:45 AM EDT Any [place] Abigail FARMWORKERS-MEDICAL CHARGE ENTRY SPECIALIST CHEMISTRY ORDERABLES Fin al Result [facility] [address] [place] [address], * LACTATE DEHYDROGENASE (01/22/2025 9:41 AM EDT) Pathologist [facility] LD Total 113 100 - 190 U/L 01/22/2025 10:02 AM EDT [facility] Blood Venipuncture / Unknown 01/22/2025 9:41 AM EDT 01/22/2025 9:45 AM EDT Any [place]big[place] FARMWORKERS-MEDICAL CHARGE ENTRY SPECIALIST CHEMISTRY ORDERABLES Fin al Result [facility] [address] [place] [address] * COMPREHENSIVE METABOLIC PANEL (01/22/2025 9:41 AM EDT) Only the most recent of2 resultswithin the time period is included. Pathologist [facility] Sodium 139 135 - 145 mmol/L [facility]2025 [facility] Potassium 4.1 3.5 - 5.0 mmol/L 01/22/2025 10:[address] [facility] Chloride 104 98 - 108 mmol/L 01/22/2025 10:[address] [facility] BUN 10 7 - 25 mg/dL 01/22/2025 10:[facility] Creatinine 0.72 0.50 - 1.20 mg/dL 01/22/2025 10:[address] [facility] Glucose 90 Nonfasting : 70-179 mg/dL; Fastin-99 mg/dL 01/22/2025 10:[address] [facility] Bilirubin Total 0.5 <1.5 mg/dL 10:[address] [facility] Albumin 4.8 3.5 - 5.0 g/dL 01/22/2025 10:[facility] Total Protein 7.5 6.4 - 8.3 g/dL 01/22/2025 10:02 AM EDT [facility] AST 13 10 - 39 U/L 01/22/2025 10:02 AM EDT [facility] ALP 52 32 - 126 U/L 01/22/2025 10:02 AM EDT [facility] Calcium 9.6 8.6 - 10.5 mg/dL 01/22/2025 10:02 AM EDT [facility] CO2 27 21 - 31 mmol/L 01/22/2025 10:02 AM EDT [facility] ALT 13 9 - 48 U/L 01/22/2025 10:02 AM [facility] Bun/Crea Ratio 14 01/22/2025 10:02 AM T [facility] Osmolality (Calculated) 289 278 - 305 mOsm/kg 01/22/2025 10:02 [facility] Anion Gap 12 7 - 17 mmol/L 01/22/2025 10:02 AM T [facility] eGFR, CKD-EPI, Female >90 >=60 mL/min/1.7 3m2 01/22/2025 10:02 AM EDT [facility] Comment:Reported eGFR is bas ed on the CKD-EPI 2020 equation using creatinine, age, and sex. Blood Venipuncture / Unknown 01/22/2025 9:41 AM EDT 01/22/2025 9:45 AM EDT Any [place] FARMWORKERS-MEDICAL CHARGE ENTRY SPECIALIST CHEMISTRY ORDERABLES Fin al Result [facility] [address] [place] [id number] * MRI BRAIN (OUTSIDE IMAGE) (01/01/2025) 01/01/2025 Narrative RADIOLOGY - 01/16/2025 5:43 PM EDT Outside Imaging Study for Support of Clinical Care. This study was sent from an outside facility to [facility] for support of clinical care of the patient within the [facility]. Procedure Note [facility] Outside Orders, External Images - 01/16/2025 Outside Imaging Study for Support of Clinical Care. This study was sentfrom an outside facility to [facility] for support of clinical care of thepatient within the [facility] system. us Roge Yanes MD MR ORDERABLES Final Result Performing Organization Address City/[facility]/ZIP Co de Phone Number RADIOLOGY * MRI BRAIN (OUTSIDE IMAGE) (01/01/2025) 01/01/2025 Narrative RADIOLOGY - 01/16/2025 5:42 PM EDT Outside Imaging Study for Support of Clinical Care. This study was sent from an outside facility to [facility] for support of clinical care of the patient within the [facility]. Procedure Note [facility] Outside Orders, External Images - 01/16/2025 Outside Imaging Study for Support of Clinical Care. This study was sentfrom an outside facility to [facility] for support of clinical care of thepatient within the [facility]. us Roge Yanes MD MR ORDERABLES Final Result Performing Organization Address [facility] Co de Phone Number RADIOLOGY * URINALYSIS REFLEX TO CULTURE PERFORMABLE (12/21/2024 9:47 AM EDT) Color Yellow Yellow 12/21/2024 11:10 AM EDT [facility] Appearance Urine Clear Clear 12/22/19 25 11:10 AM EDT [facility] Glucose Urine Negative Negative 12/21/2024 11:10 AM EDT [facility] Ketones Urine Negative Negative 12/21/2024 11:10 AM EDT [facility] Specific [place] Urine 1.021 1.001 - 1.035 12/21/2024 11:10 AM EDT [facility] Blood Urine Negative Negative 12/21/2024 11:10 AM EDT [facility] pH Urine 5.0 5.0 - 7.0 12/21/2024 11:10 AM EDT [facility] Protein Urine Negative Negative 12/21/2024 11:10 AM EDT [facility] Urobilinogen Urine 0.2 E.U./dL 0.2 E.U/dL, 1.0 E.U/dL 12/21/2024 11:10 AM EDT [facility] Nitrites Urine Negative Negative 12/21/2024 11:10 AM EDT [facility] Leukocyte Esterase Negative Negative 12/21/2024 11:10 AM EDT [facility] RBC Urine 0-2 0 - 2 /HPF 12/21/2024 11:10 AM EDT [facility] WBC Urine 0 - 5 0 - 5 /HPF 12/21/2024 11:10 AM EDT [facility] Squamous/Epithel ial Cells, Urine 3-5/hpf = 1+ 0-2/hpf, 3-5/hpf = 1+ 12/21/2024 11:10 AM EDT [facility] Bacteria ABSENT ABSENT 12/21/2024 11:10 AM EDT [facility] Urine URINE SPECIMEN OBTAINED BY CLEAN CATCH PROCEDURE / Unknown 12/21/2024 9:47 AM EDT 12/21/2024 9:47 AM EDT us Shannan Pleitez MD BODY FLUIDS & STOOLS ORDERABLES Final Result Performing Organization Address City/[facility] de Phone Number [facility] [address] [place] [address] * EXTRA MICRO (12/21/2024 9:47 AM EDT) Urine URINE SPECIMEN OBTAINED BY CLEAN CATCH PROCEDURE / Unknown 12/21/2024 9:47 AM EDT 12/21/2024 9:47 AM EDT us Shannan Pleitez MD BODY FLUIDS & STOOLS ORDERABLES Final Result Performing Organization Address City/[facility]/ZIP Co de Phone Number [facility] [address] [place] [address] [address] * URINE PROTEIN/CREA RATIO, RANDOM (12/21/2024 9:47 AM EDT) Urine Creatinine 134.51 mg/dL 12/21/2024 11:29 AM EDT [facility] Urine Protein 6 mg/dL 12/21/2024 11:29 AM EDT [facility] Prot/Creat Ratio 0.045 mg/mg 12/21/2024 11:29 AM EDT [facility] Urine 12/21/2024 9:47 AM EDT 12/21/2024 9:47 AM EDT us Shannan Pleitez MD BODY FLUIDS & STOOLS ORDERABLES Final Result Performing Organization Address [facility]/ZIP Co de Phone Number [facility] [address] [address] * C REACTIVE PROTEIN (12/21/2024 9:44 AM EDT) C Reactive Protein 0.60 <10.00 mg/L 12/21/2024 11:30 AM EDT [facility] Blood Venipuncture / Unknown 12/21/2024 9:44 AM EDT 12/21/2024 9:45 AM EDT us Shannan Pleitez MD IMMUNOLOGY ORDERABLES Final Resu lt [facility] [address] [address] * C3,C4 (12/21/2024 9:44 AM EDT) C3 155 87 - 200 mg/dL 12/21/2024 11:30 AM EDT [facility] C4 38 18 - 52 mg/dL 12/21/2024 11:30 AM EDT [facility] Blood Venipuncture / Unknown 12/21/2024 9:44 AM EDT 12/21/2024 9:45 AM EDT us Shannan Pleitez MD IMMUNOLOGY ORDERABLES Final Resu lt Performing Organization Address [facility]/ZIP Co de Phone Number [facility] [address] [address] * CYCLIC CITRULLINATE PEPTIDE AB (12/21/2024 9:44 AM EDT) Cyclic Citrullinated Peptide Ab <0.54 <5.00 U/mL 12/21/2024 2:49 PM EDT [facility] Blood Venipuncture / Unknown 12/21/2024 9:44 AM EDT 12/21/2024 9:45 AM EDT us hSannan Pleitez MD ENDOCRINOLOGY Final Result Performing Organization Address [facility] de Phone Number [facility] [address] [address] * ALDOLASE (12/21/2024 9:44 AM EDT) Aldolase 2.9 <7.7 U/L 12/24/2024 10:17 AM EDT [facility] Comment: ADDITIONAL INFORMATION This test has been modified from the vat house supervisor's instructions. Its performance characteristics were determined by [facility] in a manner consistent with CLIA requirements. This test has not been cleared or approved by the U.S. Food and Drug Administration. Test Performed by: [facility] [address] Historic Site Administrator: Jami Sher Ph.D.; CLIA# [id number] Blood Venipuncture / Unknown 12/21/2024 9:44 AM EDT 12/21/2024 9:45 AM EDT us Shannan Pleitez MD CHEMISTRY ORDERABLES Final Resul t Performing Organization Address City/[facility]/ZIP Co de Phone Number [facility] [address] [place] [address], [place] [phone] * SEDIMENTATION RATE, AUTOMATED (12/21/2024 9:44 AM EDT) ESR Westergren 10 <20 mm/hr 12/21/2024 11:44 AM EDT [facility] Blood Venipuncture / Unknown 12/21/2024 9:44 AM EDT 12/21/2024 9:45 AM EDT us Shannan Pleitez MD HEMATOLOGY ORDERABLES Final Resu lt Performing Organization Address [facility] de Phone Number [facility] [address] [address] * RHEUMATOID FACTOR (12/21/2024 9:44 AM EDT) Rheumatoid Factor <10 <=14 IU/mL 12/21/2024 11:33 AM EDT [facility] Blood Venipuncture / Unknown 12/21/2024 9:44 AM EDT 12/21/2024 9:45 AM EDT us Shannan Pleitez MD IMMUNOLOGY ORDERABLES Final Resu lt Performing Organization Address [facility] de Phone Number [facility] [address] [address] * CK (12/21/2024 9:44 AM EDT) Creatine Kinase 46 30 - 184 U/L 12/21/2024 11:29 AM EDT [facility] Blood Venipuncture / Unknown 12/21/2024 9:44 AM EDT 12/21/2024 9:45 AM EDT us Shannan Pleitez MD CHEMISTRY ORDERABLES Final Resul t Performing Organization Address City/[facility]/ZIP Co de Phone Number [facility] [address] [place] [address] [address] from Last 3 Months Insurance [employer] Plan Care Teams Intermediate School Teacher Relationship Specialty Start Date End Date Erin Whiteside, MEDICAL CHARGE ENTRY SPECIALIST [address] [facility] [place] [phone] PCP - General 03/10/23 Rodney Olivas MD Hematology 03/19/22 Cheikh Coelho MD Tension Worker Cardiovascular Disease 10/07/22 Lavern Paul MD, MPH [address] [facility] [place] [address] Oncologist Medical Oncology 03/31/23 Ron Ruano DO [address] [facility] [address] [place] [address] Obstetrics & Gynecology 04/06/23 Dolores Johnson APRN-MEDICAL CHARGE ENTRY SPECIALIST [address] [facility] 1 [facility] [place] [phone] Spar Cap Beveler Certified Nurse Practitioner 02/10/24 Vinicius Gomes MD, PhD [address] [facility] 1 [place] [address] Oncologist Medical Oncology 02/10/24 Diego Apodaca MD [address] [place] [address] [address] [place] [address] Gastroenterology 02/16/24
--- OUTSIDE RECORDS SUMMARY | 2025-03-21 15:02 | XMS_ITS | Encounter Summary ---
Author Organization [facility] enter Address [address] [place] [address] Care Team Providers Care Centrifugal Screen Tender Name Role Phone Erin Whiteside RN Primary Care Provider Unavaila Rodney Morrell MD Unavailable Archie Hugo MD, PhD Unavailable Unavailable Cheikh Coelho MD Unavailable Unavailable Erin Whiteside WAX BALL KNOCK OUT WORKER Primary Care Provider + Lavern Paul MD, MPH Unavailable [phone] Ron Ruano DO Unavailable [phone] Dolores Johnson CONSERVATION COORDINATOR-WAX BALL KNOCK OUT WORKER Unavailable [phone] Vinicius Gomes MD, PhD Unavailable [phone] Diego Apodaca MD Unavailable [phone] Diego Apodaca MD Unavailable [phone] Reason for Visit * Reason Onset Date Comments Medication Problem 05/21/2022 Encounter Details Date Type Department Care Team (Late st Contact Info) Description 05/21/2022 Telephone Division of Surgical Oncology [address] [place] [address] Archie Hugo, , PhD Medication [...] encounter for today, 05/21/22 as well. Paged industrial relations analyst Resident for patient as well. * Telephone Encounter - Lianet Carcamo - 05/21/2022 2:23 PM EDT Pt states she is experiencing problems with bowel prep and has questions. Requesting call back on [phone]. Thanks! documented in this encounter Plan of Treatment Upcoming Encounters Date Type Department Care Team (Late st Contact Info) Description 08/01/2025 11:45 AM EST Clinical Support Encounter Clinical Lab [facility] [place] [address] [place] [phone] Lavern Paul MD, MPH [address] [address] 08/01/2025 1:00 PM EST Appointment Imaging at [facility] [address] [place] [phone] Lavern Paul MD, MPH [address] [address] 08/07/2025 12:00 PM EST Office Visit Division of Medical Oncology [address] [address] Lavern Paul MD, MPH [address] [place] [address] documented as of this encounter Visit Diagnoses Not on filedocumented in this encounter Care Teams Centrifugal Screen Tender Relationship Specialty Start Date End Date Erin Whiteside, RN PCP - General 03/19/22 03/09/23 Erin Whiteside, WAX BALL KNOCK OUT WORKER [address] [place] [address] PCP - General 03/10/23 Rodney Olivas MD Hematology 03/19/22 Archie Hugo MD, PhD Surgeon Surgical Oncology 07/08/22 02/10/24 Cheikh Coelho MD Drafter Patent Cardiovascular Disease 10/07/22 Lavern Paul MD, MPH [address] [place] [address] Oncologist Medical Oncology 03/31/23 Ron Ruano DO [address] [place] [address] Obstetrics & Gynecology 04/06/23 Dolores Johnson, CONSERVATION COORDINATOR-WAX BALL KNOCK OUT WORKER [address] [facility] 1 [facility] [place] [address] Art Glass Designer Certified Nurse Practitioner 02/10/24 Vinicius Gomes MD, PhD [address] [facility] 1 [facility] [place] [address] Oncologist Medical Oncology 02/10/24 Diego Apodaca MD [address] [facility] 1 [place] [phone] Art Glass Designer Internal Medicine 02/11/24 02/15/24 Diego Apodaca MD [address] [place] [address] Gastroenterology 02/16/24 documented as of this encounter
--- OUTSIDE RECORDS SUMMARY | 2025-03-21 15:02 | XMS_ITS | Encounter Summary ---
Author Organization [facility] [employer] [facility] enter Address [address] [place] [address] Care Team Providers Care Operations Management Professionals Name Role Phone Erin Whiteside RN Primary Care Provider Unavaila Rodney Morrell MD Unavailable Archie Hugo MD, PhD Unavailable Unavailable Cheikh Coelho MD Unavailable Unavailable Erin Whiteside BRIDAL SALES CONSULTANT Primary Care Provider + Lavern Paul MD, MPH Unavailable [phone] Ron Ruano DO Unavailable [phone] Dolores Johnson DANCE MASTER-BRIDAL SALES CONSULTANT Unavailable [phone] Vinicius Gomes MD, PhD Unavailable [phone] Diego Apodaca MD Unavailable [phone] Diego Apodaca MD Unavailable [phone] Reason for Visit * Reason Onset Date Comments Lab Review 08/24/2022 Encounter Details Date Type Department Care Team (Late st Contact Info) Description 08/24/2022 Telephone Division of Medical Oncology [address] [place] [address] Johana Lutz, log yard derrick operator Review Social History Tobacco Use Types Packs/Day [...] Amaya RN - 08/25/2022 1:32 PM EST [employer] message sent to pt asking about labs [...] EST Clinical Support Encounter Clinical Lab [place] 1 [address] [place] [phone] Lavern Paul MD, MPH [address] [address] 08/01/2025 1:00 PM EST Appointment Imaging at [facility] [address] [place] [phone] Lavern Paul MD, MPH [address] [place] [phone] 08/07/2025 12:00 PM EST Office Visit Division of Medical Oncology [address] [place] [phone] Lavern Paul MD, MPH [address] [phone] documented as of this encounter Visit Diagnoses Not on filedocumented in this encounter Additional Health Concerns Assessment Noted Time PHQ-9 Depression Total Score: 2 07/08/20 22 8:02 AM EST documented as of this encounter Care Teams Operations Management Professionals Relationship Specialty Start Date End Date Erin Whiteside, RN PCP - General 03/19/22 03/09/23 Erin Whiteside, BRIDAL SALES CONSULTANT [address] [place] [address] PCP - General 03/10/23 Rodney Olivas MD Hematology 03/19/22 Archie Hugo MD, PhD Surgeon Surgical Oncology 07/08/22 02/10/24 Cheikh Coelho MD Accounts Payable Or Receivable Clerk Cardiovascular Disease 10/07/22 Lavern Paul MD, MPH [address] [place] [phone] Oncologist Medical Oncology 03/31/23 Ron Ruano DO [address] [place] [address] Obstetrics & Gynecology 04/06/23 Dolores Johnson APRN-BRIDAL SALES CONSULTANT [address] [place] [phone] Paper Cutter Certified Nurse Practitioner 02/10/24 Vinicius Gomes MD, PhD [address] [place] [phone] Oncologist Medical Oncology 02/10/24 Diego Apodaca MD [address] [facility] [address] [place] [address] Paper Cutter Internal Medicine 02/11/24 02/15/24 Diego Apodaca MD [address] [place] [address] [address] [place] [phone] Gastroenterology 02/16/24 documented as of this encounter
--- OUTSIDE RECORDS SUMMARY | 2025-03-21 15:02 | XMS_ITS ---
Author Organization [facility] Address [address] [place] [address] [place] [address] Care Team Providers Care Physical Therapy Asst Name Role Phone Rodney Olivas MD Unavailable Cheikh Coelho MD Unavailable Unavailable Erin Whiteside OIL REFINERY PROCESS TECHNICIAN Primary Care Provider + Lavern Paul MD, MPH Unavailable [phone] Ron Ruano DO Unavailable [phone] Dolores Johnson APRN-OIL REFINERY PROCESS TECHNICIAN Unavailable [phone] Vinicius Gomes MD, PhD Unavailable [phone] Diego Apodaca MD Unavailable [phone] Active Problems Problem Noted Date Diagnosed Date [...] Reason Plan Provider Cycles OP OCTREOTIDE LAR [id number] 07/08/20 22 07/08/2022 No medications scheduled. Other - see comment Lavern Paul MD, MPH Treatment not started Lifetime Dose Tracking * Chemical Lifetime Dose Automatic Entry Manual Entr y Mitomycin 50.847 mg/m2 (90 mg) 50.847 mg/m2 (90 mg) 0 mg/m2 (0 mg)
--- OUTSIDE RECORDS SUMMARY | 2025-03-21 15:02 | XMS_ITS | Encounter Summary ---
Author Organization [facility] [employer] [facility] tem Address [id number] [address] [place] [address] Care Team Providers Care Tempering Kiln Tender Name Role Phone Erin Whiteside APRN-SAND OPERATOR Primary Care Provider Encounter Details Date Type Department Care Team (Late st Contact Info) Description 04/14/2023 Abstract Maternal- Medicine at [facility] [address] [place] [phone] Janna Deleon MD [address] [facility] [place]DIS[place], [address] [place] [address] Social History Tobacco Use Types Packs/Day Years [...] declined 02/18/2022 How often do you attend hinduism or yazidi serv ices? Never 02/18/2022 Do you belong to any clubs o r organizations such as hinduism groups, unions, fraternal or athletic groups, or [...] Answer Date Recorded Total Score 16 02/18/2022 [facility] [place] of Occupat ional Health - Occupational Stress [...] ORDERABLES Final Resu lt Performing Organization Address City/[facility] Co de Phone Number MANUALLY TRANSCRIBED RESULTS [...] ORDERABLES Final Resu lt Performing Organization Address City/[facility]/ZIP Co de Phone Number MANUALLY TRANSCRIBED RESULTS * CBC without diff (03/13/2023) Hemoglobin 11.3 MANUALLY TRANSCRIBED RESULTS Hematocrit 35.4 MANUALLY TRANSCRIBED RESULTS Rbc Mcv (Fl) By Automated Count 82.7 MANUALLY TRANSCRIBED RESULTS Platelets 341 MANUALLY TRANSCRIBED RESULTS us Ron R Alden DO LAB BLOOD ORDERABLES Final Resu lt Performing Organization Address City/[facility]/ZIP Co de Phone Number MANUALLY TRANSCRIBED RESULTS * HIV 1&2 AB/AG Screen (P24 AG) (03/13/2023) HIV 1&2 AB/AG non reactive MAN UALLY TRANSCRIBED RESULTS us Ron R Alden DO LAB BLOOD ORDERABLES Final Resu lt Performing Organization Address City/[facility]/ZIP Co de Phone Number MANUALLY TRANSCRIBED RESULTS * Type and screen (03/13/2023) Abo/Rh(D) A Positive MANUALLY TRANSCRIBED RESULTS Antibody Screen Negative MANUALLY TRANSCRIBED RESULTS us Ron R Alden DO BLOOD BANK TEST ORDERABLES Coco l Result Performing Organization Address [facility] Co de Phone Number MANUALLY TRANSCRIBED RESULTS * Rubella IGG immune status (03/13/2023) Rubella immune IgG 2.03 MANUALLY TRANSCRIBED RESULTS us Ron R Alden DO LAB BLOOD ORDERABLES Final Resu lt Performing Organization Address City/[facility] Co de Phone Number MANUALLY TRANSCRIBED RESULTS * Syphilis Total(Unknown Syphilis Status) (03/13/2023) Syphilis nonreactive MANUALLY TRANSCRIBED RESULTS us Ron R Alden DO LAB BLOOD ORDERABLES Final Resu lt Performing Organization Address [facility] [facility] Co de Phone Number MANUALLY TRANSCRIBED RESULTS documented in this encounter Visit Diagnoses Not on filedocumented in this encounter Additional Health Concerns Assessment Noted Time PHQ-9 Depression Total Score: 16 022 5:41 PM EDT documented as of this encounter Care Teams Tempering Kiln Tender Relationship Specialty Start Date End Date Erin Whiteside, KINDER[employer]ARTEN CLASSROOM TEACHER-SAND OPERATOR [address] [facility], [place] [phone] PCP - General Family Medicine 02/11/22 documented as of this encounter
--- OUTSIDE RECORDS SUMMARY | 2025-03-21 15:02 | XMS_ITS | Encounter Summary ---
Author Organization [facility] enter Address [address] [place] [address] Care Team Providers Care Food Service Utility Worker Name Role Phone Erin Whiteside RN Primary Care Provider Unavaila Rodney Morrell MD Unavailable Archie Hugo MD, PhD Unavailable Unavailable Cheikh Coelho MD Unavailable Unavailable Erin Whiteside SUPERVISOR INTERMEDIATES Primary Care Provider + Lavern Paul MD, MPH Unavailable [phone] Ron Ruano DO Unavailable [phone] Dolores Johnson EARLY CHILDHOOD SERVICES COORDINATOR-SUPERVISOR INTERMEDIATES Unavailable [phone] Vinicius Gomes MD, PhD Unavailable [phone] Diego Apodaca MD Unavailable [phone] Diego Apodaca MD Unavailable [phone] Encounter Details Date Type Department Care Team (Late st Contact Info) Description 10/13/2022 Telephone Division of Surgical Oncology [address] [facility] [address] [place] [address] Leigh Pompa, RUPERT Social History [...] Clinical Lab Branden [place] [address] [place] [phone] Lavern Paul MD, MPH [address] [place] [address] [place] [phone] 08/01/2025 1:00 PM EST Appointment Imaging at [facility] [address] 2nd [place] [phone] Lavern Paul MD, MPH [address] [place] [address] [place] [phone] 08/07/2025 12:00 PM EST Office Visit Division of Medical Oncology [address] [place] [address] [facility] [phone] Lavern Paul MD, MPH [address] [place] [address] [place] [phone] documented as of this encounter Visit Diagnoses Not on filedocumented in this encounter Additional Health Concerns Assessment Noted Time PHQ-9 Depression Total Score: 0 10/08/19 11:26 AM EDT documented as of this encounter Care Teams Food Service Utility Worker Relationship Specialty Start Date End Date Erin Whiteside, RN PCP - General 03/19/22 03/09/23 Erin Whiteside, SUPERVISOR INTERMEDIATES [address] [place] [phone] PCP - General 03/10/23 Rodney Olivas MD Hematology 03/19/22 Archie Hugo MD, PhD Surgeon Surgical Oncology 07/08/22 02/10/24 Cheikh Coelho MD Site Supervisor Cardiovascular Disease 10/07/22 Lavern Paul MD, MPH [address] [place] [phone] Oncologist Medical Oncology 03/31/23 Ron Ruano DO [address] [facility] [address] [place] [phone] Obstetrics & Gynecology 04/06/23 Dolores Johnson, EARLY CHILDHOOD SERVICES COORDINATOR-[facility] [address] [facility] [address] [place] [phone] Surveillance Monitor Certified Nurse Practitioner 02/10/24 Vinicius Goems MD, PhD [address] [place] [address] [address] [place] [phone] Oncologist Medical Oncology 02/10/24 Diego Apodaca MD [address] [facility] [address] [place] [phone] Surveillance Monitor Internal Medicine 02/11/24 02/15/24 Diego Apodaca MD [address] [place], [place] [address] [facility] [address] [place] [address] Gastroenterology 02/16/24 documented as of this encounter
--- OUTSIDE RECORDS SUMMARY | 2025-03-21 15:02 | XMS_ITS | Clinical Summary ---
Author Organization [facility] Address [address] [place], [place] [id number] Care Team Providers Care Reptile Farmer Name Role Phone Connor Giraldo MD Unavailable Social History Tobacco Use Types Packs/Day Years [...] 3-dose series) 05/06 Cervical Cancer Screening 2018 HPV Vaccine (1 - 3-dose SCDM series) 2024 Influenza Vaccine (#1) 2025 Insurance [employer] PREFERRED PPO [employer] TRANSPLANT Care Teams Reptile Farmer Relationship Specialty Start Date End Date Connor Giraldo MD [address] [place] [address] Referring Family Medicine 08/29/24
--- OUTSIDE RECORDS SUMMARY | 2025-03-21 15:02 | XMS_ITS | Encounter Summary ---
Author Organization [facility] [employer] [facility] tem Address [id number] [address] [place] [address] Care Team Providers Care Marine Diver Name Role Phone Stevo Erin Persaud APRN-CANDY WAFFLE ASSEMBLER Primary Care Provider Encounter Details Date Type Department Care Team (Late st Contact Info) Description 04/14/2023 Orders Only Maternal- Medicine at [facility] [address] [place] [phone] Ref Prov, [place] [address] Social History Tobacco Use Types Packs/Day Years [...] declined 02/18/2022 How often do you attend worship or spiritism serv ices? Never 02/18/2022 Do you belong to any clubs o r organizations such as worship groups, unions, fraternal or athletic groups, or [...] Answer Date Recorded Total Score 16 02/18/2022 [facility] of Occupat ional Health - Occupational [...] Recorded Do you need help finding a [facility] and/or a training program? [...] 3:50 PM EDT) Anatomical Region Laterality Modality OB-SOCIAL MEDIA COMMUNITY MANAGER Ultrasound us Not In System Ref Prov [...] documented as of this encounter Care Teams Marine Diver Relationship Specialty Start Date End Date Erin Whiteside, WOOL GRADER-CANDY WAFFLE ASSEMBLER [address] [place] [address] PCP - General Family Medicine 02/11/22 documented as of this encounter
--- OUTSIDE RECORDS SUMMARY | 2025-03-21 15:02 | XMS_ITS | Encounter Summary ---
Author Organization [facility] enter Address [address] [place] [address] Care Team Providers Care Oracle Data Warehouse Developer Name Role Phone Rodney Olivas MD Unavailable Cheikh Coelho MD Unavailable Unavailable Erin Whiteside PAPER ROLLER Primary Care Provider [phone] Lavern Paul MD, MPH Unavailable [phone] Ron Ruano DO Unavailable [phone] Dolores Johnson APRN-PAPER ROLLER Unavailable [phone] Vinicius Gomes MD, PhD Unavailable [phone] Diego Apodaca MD Unavailable [phone] Reason for Visit * Reason Onset Date Comments Cancellation 01/29/2025 Encounter Details Date Type Department Care Team (Late st Contact Info) Description 01/29/2025 Telephone Division of Endocrinology [address] [address] Christopher Moralez, SPENCER-PAPER ROLLER [address] [address] Cancellation Social History Tobacco Use Types Packs/Day [...] EST Clinical Support Encounter Clinical Lab [place] [address] [place] 1[address] [place] [phone] Lavern Paul MD, MPH [address] [place] [address] [place] [phone] 08/01/2025 1:00 PM EST Appointment Imaging at [facility] [address] [place] [phone] Lavern Paul MD, MPH [address] [place] [address] [place] [phone] 08/07/2025 12:00 PM EST Office Visit Division of Medical Oncology [address] [place] [address] [place] [phone] Lavern Paul MD, MPH [address] [place] [address] [place] [phone] documented as of this encounter Visit Diagnoses Not on filedocumented in this encounter Additional Health Concerns Assessment Noted Time PHQ-9 Depression Total Score: 9 09/29/19 25 11:41 AM EDT documented as of this encounter Care Teams Oracle Data Warehouse Developer Relationship Specialty Start Date End Date Erin Whiteside CNP [address] [place] [phone] PCP - General 03/10/23 Rodney Olivas MD Hematology 03/19/22 Cheikh Coelho MD Psychology Professor Cardiovascular Disease 10/07/22 Lavern Paul MD, MPH [address] [place] [phone] Oncologist Medical Oncology 03/31/23 Ron Ruano DO [address] [facility] [address] [place] [address] Obstetrics & Gynecology 04/06/23 Dolores Johnson, CASE PICKER-PAPER ROLLER [address] [facility] [address] [place] [address] Baggage Handler Certified Nurse Practitioner 02/10/24 Vinicius Gomes MD, PhD [address] [facility] [address] [place] [address] Oncologist Medical Oncology 02/10/24 Diego Apodaca MD [address] [place] [phone] Gastroenterology 02/16/24 documented as of this encounter
--- OUTSIDE RECORDS SUMMARY | 2025-03-21 15:02 | XMS_ITS | Encounter Summary ---
Author Organization [facility] enter Address [address] [place] [address] Care Team Providers Care Leave Specialist Name Role Phone Rodney Olivas MD Unavailable Archie Hugo MD, PhD Unavailable Unavailable Cheikh Coelho MD Unavailable Unavailable Erin Whiteside [facility] Primary Care Provider + Lavern Paul MD, MPH Unavailable [phone] Ron Ruano DO Unavailable [phone] Dolores Johnson APRN-HVAC/R SERVICE TECHNICIAN Unavailable [phone] Vinicius Gomes MD, PhD Unavailable [phone] Diego Apodaca MD Unavailable [phone] Diego Apodaca MD Unavailable [phone] Reason for Referral * MRI/CAT Scan (Routine) - Closed Specialty Diagnoses / Procedures Referred By Contac andrew Referred To Contact Diagnoses 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 Procedures CT ABDOMEN/PELVIS WITH AND WITHOUT CONTRAST CHG CT SCAN,ABDOMENT AND PELVIS,COMBO Christopher Moralez APRN-CNP Phone: tel: fax: Referral ID Status Reason Start Date Expiration Date Visits Re quested Visits Authorized [id number] Closed 11/10/2023 12/04/2024 1 1 * Consultation (Routine) - Closed Specialty Diagnoses / Procedures Referred By Contmarcia morales Referred To Contact Gastroenterology Diagnoses Hepatomegaly Transaminitis Christopher Moralez APRN-CNP Phone: tel: fax: Referral ID Status Reason Start Date Expiration Date Visits Re quested Visits Authorized [id number] Closed 11/10/2023 12/04/2024 1 1 * Consultation (Routine) - Closed Specialty Diagnoses / Procedures Referred By Katharine morales Referred To Contact Oncology Diagnoses Low grade mucinous neoplasm of appendix Christopher Moralez APRN-CNP Phone: tel: fax: Referral ID Status Reason Start Date Expiration Date Visits Re quested Visits Authorized [id number] Closed 11/10/2023 12/04/2024 1 1 Reason for Visit * Reason Onset Date Comments Imaging Results 11/09/2023 Encounter Details Date Type Department Care Team (Late st Contact Info) Description 11/09/2023 Telephone Division of Endocrinology [address] [facility] 10th [place] [address] Candida Giordano Imaging Results Social [...] nodes in the anterior abdomen are stable. Wing White * Telephone Encounter - Candida Giordano - 11/09/2023 1:11 PM EDT Pt called in wanting to speak to YE about her Ct results. She would like a Cb to go over these documented in this encounter Plan of Treatment Upcoming Encounters Date Type Department Care Team (Late st Contact Info) Description 08/01/2025 11:45 AM EST Clinical Support Encounter Clinical Lab Branden Johnston [address] [place] [phone] Lavern Paul MD, MPH [address] [place] [phone] 08/01/2025 1:00 PM EST Appointment Imaging at [facility] [address] [place] [phone] Lavern Paul MD, MPH [address] [facility] [address] [place] [phone] 08/07/2025 12:00 PM EST Office Visit Division of Medical Oncology [address] [place] [phone] Lavern Paul MD, MPH [address] [phone] Scheduled Referrals Name Type Priority Associated Diagnoses Order Schedule AMB REFERRAL TO ONCOLOGY Outpatient Referral Routine Low grade mucinous neoplasm of appendix Ordered: 11/10/2023 AMB REFERRAL TO HEPATOLOGY Outpatient Referral Routine Hepatomegaly Transaminitis Ordered: 11/10/2023 documented as of this encounter Results * CHROMOGRANIN A (02/07/2024 2:09 PM EDT) Chromogranin A <20 <93 ng/mL 02/08/2024 2:45 PM EDT [facility] [address] Comment: ADDITIONAL INFORMATION The testing method is a homogeneous time-resolved immunofluorescent assay manufactured by [employer] and performed on the [employer] Kryptor Compact Plus. Values obtained with different [...] examination and other findings. Test Performed by: [facility] [address] [place] [address] [employer] Supervisor: Jami Sher Ph.D.; CLIA# [id number] Blood Venipuncture / Unknown 02/07/2024 2:09 PM EDT 02/07/2024 2:13 PM EDT Christopher Moralez LEAD MECHANICAL ENGINEER[facility] CHEMISTRY ORDERABLES Final Resu Performing Organization Address City/[facility]/ZIP Co de Phone Number [facility] [address] [place] [address], [place] [phone] * LACTATE DEHYDROGENASE (02/07/2024 2:09 PM EDT) Pathologist [facility] LD Total 110 100 - 190 U/L 02/07/2024 2:33 PM EDT [facility] Blood Venipuncture / Unknown 02/07/2024 2:09 PM EDT 02/07/2024 2:13 PM EDT Christopher Moralez LEAD MECHANICAL ENGINEER-[facility] CHEMISTRY ORDERABLES Final Resu lt [facility] [address] [place] [address] * (ABNORMAL) COMPREHENSIVE METABOLIC PANEL (02/07/2024 2:09 PM EDT) Pathologist [facility] Sodium 134(L) 135 - 145 mmol/L 02/07/2024 2:33 PM EDT [facility] Potassium 4.0 3.5 - 5.0 mmol/L 02/07/2024 2:33 PM EDT [facility] Chloride 98 98 - 108 mmol/L 02/07/2024 2:33 PM EDT [facility] BUN 6(L) 7 - 25 mg/dL 02/07/2024 2:33 PM EDT [facility] Creatinine 0.58 0.50 - 1.20 mg/dL 02/07/2024 2:33 PM EDT [facility] Glucose 108(H) 70 - 99 mg/dL 02/07/2024 2:33 PM EDT [facility] Bilirubin Total 0.7 <1.5 mg/dL 2:33 PM EDT [facility] Albumin 4.8 3.5 - 5.0 g/dL 02/07/2024 2:33 PM EDT [facility] Total Protein 7.5 6.4 - 8.3 g/dL 02/07/2024 2:33 PM EDT [facility] AST 26 10 - 39 U/L 02/07/2024 2:33 PM EDT [facility] ALP 56 32 - 126 U/L 02/07/2024 2:33 PM EDT [facility] Calcium 9.5 8.6 - 10.5 mg/dL 02/07/2024 2:33 PM EDT [facility] CO2 29 21 - 31 mmol/L 02/07/2024 2:33 PM EDT [facility] ALT 41 9 - 48 U/L 02/07/2024 2:33 PM EDT [facility] Bun/Crea Ratio 10 02/07/2024 2:33 PM EDT [facility] Osmolality (Calculated) 280 278 - 305 mOsm/kg 02/07/2024 2:33 PM EDT [facility] Anion Gap 11 7 - 17 mmol/L 02/07/2024 2:33 PM EDT [facility] eGFR, CKD-EPI, Female >90 >=60 mL/min/1.7 3m2 02/07/2024 2:33 PM EDT [facility] Comment:Reported eGFR is bas ed on the CKD-EPI 2020 equation using creatinine, age, and sex. Blood Venipuncture / Unknown 02/07/2024 2:09 PM EDT 02/07/2024 2:13 PM EDT us Ye Moralez LEAD MECHANICAL ENGINEER-HVAC/R SERVICE TECHNICIAN CHEMISTRY ORDERABLES Final Resu lt [facility] [address] [place] [address] * CT ABDOMEN/PELVIS WITH AND WITHOUT CONTRAST [...] error, please notify the sender immediately at [phone] and permanently delete the original report and [...] in error, please notify the sender immediatelyat [phone] and permanently delete the original report and destroy anycopies or printouts. Christopher Moralez LEAD MECHANICAL ENGINEER-HVAC/R SERVICE TECHNICIAN CT ORDERABLES Final Result documented in this [...] documented as of this encounter Care Teams Leave Specialist Relationship Specialty Start Date End Date Erin Whiteside HVAC/R SERVICE TECHNICIAN [address] [place] [phone] PCP - General 03/10/23 Rodney Olivas MD Hematology 03/19/22 Archie Hugo MD, PhD Surgeon Surgical Oncology 07/08/22 02/10/24 Cheikh Coelho MD Hides Soaker Cardiovascular Disease 10/07/22 Lavern Paul MD, MPH [address] [place] [address] Oncologist Medical Oncology 03/31/23 Ron Ruano DO [address] [address] Obstetrics & Gynecology 04/06/23 Dolores Johnson, LEAD MECHANICAL ENGINEER-HVAC/R SERVICE TECHNICIAN [address] [address] Piercing Artist Certified Nurse Practitioner 02/10/24 Vinicius Gomes MD, PhD [address] [facility] [address] [place] [phone] Oncologist Medical Oncology 02/10/24 Diego Apodaca MD [address] [facility] [address] [place] [address] Piercing Artist Internal Medicine 02/11/24 02/15/24 Diego Apodaca MD [address] [place] [phone] Gastroenterology 02/16/24 documented as of this encounter
--- OUTSIDE RECORDS SUMMARY | 2025-03-21 15:02 | XMS_ITS | Encounter Summary ---
Author Organization [facility] enter Address [address] [place] [address] Care Team Providers Care Benefits Specialist Name Role Phone Rodney Olivas MD Unavailable Cheikh Coelho MD Unavailable Unavailable Erin Whiteside [employer] Primary Care Provider + Lavern Paul MD, MPH Unavailable [phone] Ron Ruano DO Unavailable [phone] Dolores Johnson APRN-JEWEL GRINDER Unavailable [phone] Vinicius Gomes MD, PhD Unavailable [phone] Diego Apodaca MD Unavailable [phone] Encounter Details Date Type Department Care Team (Late st Contact Info) Description 09/21/2024 Telephone Division of Surgical Oncology [address] [place] [address] [address] Marcio Campos MD [address] [place] [address] [address] Social History Tobacco Use Types [...] EST Clinical Support Encounter Clinical Lab Branden Winfield [address] [place] [address] [place] [address] Lavern Paul MD, MPH [address] [place] [address] [place] [phone] 08/01/2025 1:00 PM EST Appointment Imaging at [facility] [address] [place] [phone] Lavern Paul MD, MPH [address] [place] [address] [place] [address] 08/07/2025 12:00 PM EST Office Visit Division of Medical Oncology [address] [place] [address] Lavern Paul MD, MPH [address] [place] [address] documented as of this encounter Visit Diagnoses Not on filedocumented in this encounter Additional Health Concerns Assessment Noted Time PHQ-9 Depression Total Score: 0 11/08/19 24 9:40 AM EDT documented as of this encounter Care Teams Benefits Specialist Relationship Specialty Start Date End Date Erin Whiteside JEWEL GRINDER [address] [place] [address] PCP - General 03/10/23 Rodney Olivas MD Hematology 03/19/22 Cheikh Coelho MD Soloist Dancer Cardiovascular Disease 10/07/22 Lavern Paul MD, MPH [address] [place] [address] Oncologist Medical Oncology 03/31/23 Ron Ruano DO [address] [place] [address] Obstetrics & Gynecology 04/06/23 Dolores Johnson APRN-JEWEL GRINDER [address] [place] [address] Funeral Arranger Certified Nurse Practitioner 02/10/24 Vinicius Gomes MD, PhD [address] [facility] [address] [place] [phone] Oncologist Medical Oncology 02/10/24 Diego Apodaca MD [address] [place] [phone] Gastroenterology 02/16/24 documented as of this encounter
[2025-03-21 17:01] LABS: Glucose Urine UA 100 mg/dL (NEGATIVE)
[2025-03-21 17:11] LABS: Crystals Seen? None Seen #/HPF (None Seen)
[2025-03-21 17:12] LABS: Cast Seen? NONE SEEN #/LPF (NONE SEEN); Urine Culture Indicated ALREADY ORDERED
--- OUTSIDE RECORDS SUMMARY | 2025-03-21 19:11 | XMS_ITS | CCD ---
Author Organization [facility] Inform ion Partnership [facility] Care Team Providers Care Director Quality Assurance Name Role Phone Ava Lundberg Unavailable Unavailable Primary Care Provider Unavailemanuel Sams RN, Erin Primary Care Provider Unavaildanielle Olivas MD, Rodney Unavailable Latrell EMERY, Erin Primary Care Provider Unavaildanielle Olivas MD, Rodney Unavailable Oanh DUPONT, PhD, Archie C Unavailable [phone] Cheikh Coelho MD Unavailable ERIN SAMS Primary [...] Unavailable MISC, DR JACOBO Attending Unavailable MISC, DOCTOR Consulting Unavailable LATRELL, ERIN Consulting Unavailable [...] Primary Care Unavailable FROYLAN EVANGELISTA Consulting Unavailable CITLALY, CHEIKH Consulting Unavailable LATRELL, ERIN Primary Care Unavailable ADIS, DR SARAHI Quarles Attending Unavailable ADIS, DR SARAHI Quarles Admitting Unavailable ADIS, DR SARAHI Quarles Consulting Unavailable LATRELL, ERIN Primary Care Unavailable GRILLIS ., DR TIMMY Sibley Consulting Unavaila ble GRILLIS ., DR TIMMY Sibley Attending Unavaila ble GRILLIS ., DR TIMMY Sibley Admitting Unavaila ble SOOEBTOREY, DR CAROLYN Quarles Consulting Unavailable CHAY ., DR CARMONA Consulting Unavailable AGUBOSIM, JOSÉ LUIS Consulting Unavailable MISC, DR JACOBO Admitting Unavailable LATRELL, ERIN Primary Care Unavailable MISC, DR JACOBO Consulting Unavailable MISC, DR JACOBO Attending Unavailable LATRELL, ERIN Consulting Unavailable LATRELL, ERIN Attending Unavailable LATRELL, ERIN Primary Care Unavailable LATRELL, ERIN Admitting Unavailable Deisy DUPONT, Rodney Unavailable Oanh DUPONT, PhD, Archie C Unavailable [phone] Cheikh Coelho MD Unavailable Erin Sams CNP S Primary Care Provider Unavailable Primary Care Provider Unavailemanuel Hugo MD, PhD, Archie C Unavailable [phone] Jordan DUPONT, MPH, Andreas Unavailable Ron Ruano DO Unavailable ERIN SAMS Primary Care Physician Johnson DYNAMITE PACKING MACHINE FEEDER-CUSTOMER SERVICE SECURITY OFFICER, Dolores J Unavailable Mireya DUPONT, PhD, Vinicius Chavez Unavailable [phone] Paulie DUPONT, Cortez T Unavailable DONELL Sams Erin Dary Primary Care Provider PRANAY SamsC Erin Dary Attending Provider [phone] LEFTY Sams-C Erin Dary Referring Provider [phone] Deisy DUPONT, Stevens Unavailable [place] DYNAMITE PACKING MACHINE FEEDER-CUSTOMER SERVICE SECURITY OFFICER, Dolores J Unavailable AURELIA SALEH Attending Unavailable LATRELL, ERIN S Referring Unavailable LATRELL, ERIN S Primary Care Unavailable LATRELL, ERIN S Referring Unavailable LATRELL, ERIN S Primary Care Unavailable DO Timmy Hall Attending Provider Latrell DYNAMITE PACKING MACHINE FEEDER-CUSTOMER SERVICE SECURITY OFFICER, Erin S Primary Care Provider Latrell, Erin Dary Primary Care Unavailable Timmy Hall Admitting Unavailable Timmy Hall Attending Unavailable Latrell, Erin Dary Primary Care Unavailable Latrell, Erin Dary Attending Unavailable Latrell, Erin Dary Admitting Unavailable Latrell, Erin Dary Admitting Unavailable Latrell, Erin Dary Primary Care Unavailable Latrell, Erin Dary Attending Unavailable Latrell, Erin Dary Referring Unavailable Latrell DIRECTOR OF RELIGIOUS ACTIVITIES-C, Erin Dary Primary Care Provider [phone] Latrell DIRECTOR OF RELIGIOUS ACTIVITIES-C, Erin Dary Attending Provider [place] DYNAMITE PACKING MACHINE FEEDER-CUSTOMER SERVICE SECURITY OFFICER, Dolores J Unavailable Unavai lable [place] DYNAMITE PACKING MACHINE FEEDER-CUSTOMER SERVICE SECURITY OFFICER, Dolores J Unavailable ELAYNE BUSH Attending Unavailable RON RUANO Attending Unavailable RON RUANO Attending Unavailable RON RUANO Attending Unavailable Cheikh Coelho MD Unavailable Unavailable JRODAN, ANDREAS Referring Unavailable JORDAN ANDREAS Attending Unavailable LATRELL, ERIN S Primary Care Unavailable LATRELL, ERIN S Primary Care Unavailable LATRELL, ERIN S Referring Unavailable YUDELKA MORALEZ Attending Unavailable LATRELL, ERIN S Primary Care Unavailable YASIR, ANY B Referring Unavailable LATRELL, ERIN S Primary Care Unavailable NADEGE PLEITEZ Attending Unavailable YASIR, ANY B Referring Unavailable LATRELL, ERIN S Primary Care Unavailable YASIR, ANY B Referring Unavailable LATRELL, ERIN S Primary Care Unavailable OSMIN MOORE Referring Unavailable OSMIN MOORE Attending Unavailable LATRELL, ERIN S Primary Care Unavailable YASIR, ANY B Attending Unavailable MORALEZ, YE Referring Unavailable LATRELL, ERIN S Primary Care Unavailable MORALEZ, YE Attending Unavailable YASIR, ANY B Referring Unavailable LATRELL, ERIN S Referring Unavailable LATRELL, ERIN S Primary Care Unavailable MORALEZ, YE Attending Unavailable LATRELL, ERIN S Primary Care Unavailable MORALEZ, YE Referring Unavailable MORALEZ, YE Attending Unavailable JORDAN, ANDREAS Referring Unavailable JORDAN ANDREAS Attending Unavailable LATRELL, ERIN S Primary Care Unavailable LATRELL, ERIN S Primary Care Unavailable MORALEZ, YE Referring Unavailable MORALEZ, YE Attending Unavailable LATRELL, ERIN S Primary Care Unavailable MORALEZ, YE Attending Unavailable MORALEZ, YE Referring Unavailable Diego Apodaca Attending Unavaila ble Diego Apodaca Attending Unavaila ble Allergies Allergy Classification Reported Allergen(s) Allergy Type Date of Onset Reaction(s) Facility (20 sources) gabapentin; Translations: [gabapentin] Drug Allergy 3 Nausea Only, Diarrhea, Nausea (finding), Diarrhea (finding), GI Disturbance [facility] (20 sources) metroNIDAZOLE; Translations: [metronidazole] Drug Allergy 4 Nausea (finding), GI intolerance, GI Disturbance, Nausea Only [facility] (1 source) metroNIDAZOLE; Translations: [Flagyl] Drug Allergy [facility] Repository Medications Current Medications Medication Drug Class(es) Dates Sig (Normalized) Sig (Original) ARIPiprazole 2 mg oral tablet (2 sources) Atypical Antipsychotic Start: 03-08-2025 take 1 mg by mouth once daily Abilify 2 mg Tab mg tab(s), Oral, Daily, Refills(s) 0 Start Date: 03/08/25 Status: Ordered Repeat number: 1 Abilify Active busPIRone (1 source) BuSpar Active [...] packet(s), Oral, BID, 60 EA, Refill(s) 6, [facility]/pharmacy #[id number], 154, cm, 02/07/24 8:50:00 EDT, Height/Length Dosing Start Date: 02/07/24 Status: Ordered colestipol hydrochloride 1000 mg oral tablet (5 sources) Bile Acid Sequestrant Start: 025 take 2 tablets by mouth twice daily Colestid 1 g Tab 2 gm = 2 tab(s), Oral, BID, with a full glass of water, # 180 tab(s), Refills(s) 3, [id number], cm, 03/08/25 14:03:00 EDT, Height/Length Dosing, 68.2, kg, 03/08/25 14:03:00 EDT, Weight Dosing Start Date: 03/08/25 Status: Ordered Quantity: 180.0 Unit: tab(s) Repeat number: 4 Start: 02-17-2024 colestipoL (CO LESTID) 1 g tablet Take 1 tablet (1 [...] dizziness, drowsiness 60 tablet 3 07/08/2022 Active Emgality Prefilled Pen (1 source) Start: 03-08-2025 inject 1 mg by subcutaneous injection every month Emgality Prefilled Pen mg, SubCutaneous, qMonth, Refills(s) 0 Start Date: 03/08/25 Status: Ordered Repeat number: 1 0.4 ml enoxaparin sodium 100 mg/ml prefilled syringe (16 sources) Low Molecular Weight Heparin Start: 05-29-2022 End: 06-23-2022 Enoxaparin Sodium 40 MG/0.4ML injection Indications: DVT/PE prophylaxis Inject one syringe (0.4 mL) under the skin every 24 hours. 10 mL 0 05/29/2022 Active Start: 05-22-2022 End: 05-29-2022 Enoxaparin Sodium (LOVENOX) injection 40 mg FLUoxetine 20 mg oral capsule (20 sources) Serotonin Reuptake Inhibitor Start: 03-08-2025 take 1 mg by mouth once daily Prozac 20 mg Cap mg cap(s), Oral, Daily, Refills(s) 0 Start Date: 03/08/25 Status: Ordered Repeat number: 1 Start: 08-17-2023 End: 08-16-2024 take 1 capsule by mouth in the morning FLUoxetine (PROzac) 20 MG capsule Indications: Depression with anxiety Take 1 capsule (20 mg) by mouth in the morning. 30 capsule 08/17/2023 Active Start: 05-25-2022 End: 06-09-2022 FLUoxetine (PROZAC) [...] capsules by mouth daily. Active PROzac Active 1 ml galcanezumab-gnlm 120 m g/ml auto-injector (12 sources) Start: 11-16-2024 Galcanezumab-g nlm (Emgality) 120 MG/ML Solution Auto-injector Indications: Chronic migraine without aura without status migrainosus, not intractable Inject 120 mg under the skin every 30 days. Use 1ml 30days after the initial loading dose of 2ml. Afterwards, continue to use it every 30 days. 1 mL 11/16/2024 Active Start: 11-15-2024 End: 11-15-2024 inject 240 mg by subcutaneous injection once Galcanezumab-gnlm 120 MG/ML Solution Auto-injector Indications: Chronic migraine without aura without status migrainosus, not intractable Inject 240 mg under the skin once for 1 dose. 2 mL 11/15/2024 Active hydrOXYzine (4 sources) Antihistamine Start: 03-08-2025 hydrOXYzine 10 0 mg, Refills(s) 0 Start Date: 03/08/25 Status: Ordered Repeat number: 1 take 1 capsule by [facility] three times daily as needed for anxiety hydrOXYzine pamoate 50 MG capsule Take 1 capsule by mouth 3 times daily as needed for Anxiety. Active lamoTRIgine 100 mg oral tablet (20 sources) Mood Stabilizer, Anti-epileptic Agent Start: 03-08-2025 take 1 mg by mouth twice daily Lamictal 100 mg Tab mg tab(s), Oral, BID, Refills(s) 0 Start Date: 03/08/25 Status: Ordered Repeat number: 1 Start: 09-28-2023 take 1 tablet by [facility] once daily lamoTRIgine (LaMICtal) 25 MG tablet Indications: Depression with anxiety Take 1 tablet (25 mg) by mouth Daily 90 tablet 2 09/28/2023 Active take 0.5 tablet by [facility] once daily lamoTRIgine 100 MG tablet Take 0.5 tablets by mouth daily. Active lamoTRIgine 100 MG tablet daily. Active take 2 tablets by [facility] once daily lamoTRIgine 25 MG tablet Take 2 tablets by mouth daily. 0 Active 0.2 ml lanreotide 300 mg/ml prefilled syringe (2 sources) Somatostatin Analog Start: 01-30-2025 Lanreotide 60 MG/0.2ML Solution Inject 1 Syringe under the skin every 28 days. 0.2 mL 11 01/30/2025 Active loperamide hydrochloride 2 mg oral capsule (20 sources) Opioid Agonist Loperamide 2 MG capsule Take 1 capsule by mouth as needed for Diarrhea. 2 stat then 1 cap after each loose stool Active Magnesium Hydroxide (2 sources) Magnesium Hydrox anthony (MILK OF MAGNESIA PO) Take by mouth as needed. 0 Active metoclopramide 10 mg oral tablet (2 sources) Dopamine-2 Receptor Antagonist Start: 07-14-2023 metoclopramide (Reglan) 10 MG tablet Indications: Heartburn [...] 1 capsule by mouth daily. 0 Active Multiple Vitamins-Minerals (Multivitamin w/ minerals, THERAPEUTIC-M,) tablet (12 sources) take 1 tablet by mouth once daily Multiple Vitamins-Minerals (Multivitamin w/ minerals, THERAPEUTIC-M,) tablet Take 1 tablet by mouth daily. Active nitrofurantoin, macrocrystals 25 mg / nitrofurantoin, monohydrate 75 mg oral capsule (1 source) Nitrofuran Antibacterial Start: 12-22-2021 take 1 capsule by mouth every twelve hours Macrobid 100 MG 1 capsule with food Orally every 12 hrs for 5 days Dec, Active Nurtec ODT (1 source) Start: 03-08-2025 Nurtec ODT See Instructions, as needed, Refills(s) 0 Start Date: 03/08/25 Status: Ordered Repeat number: 1 octreotide 20 mg injection (20 sources) Somatostatin Analog Start: 03-08-2025 octreotide 20 mg IM Inj See Instructions, 20 mg IntraMuscular as needed, Refills(s) 0 Start Date: 03/08/25 Status: Ordered Repeat number: 1 Start: 11-08-2023 End: 03-17-2024 inject 1 mL by subcutaneous injection three times daily as needed Octreotide Acetate 100 MCG/ML Solution Prefilled Syringe prefilled syringe Inject 1 mL under the skin 3 times daily as needed for Other (carcinoid syndrome). 90 mL 03/17/2024 Active Start: 10-18-2023 End: 09-28-2024 Octreotide acetate (SandoSTA TIN LAR [place]) 20 MG Kit injection Inject 20 mg intramuscularly every 28 days. 1 kit 11 10/18/2023 09/28/2024 Discontinued (Therapy completed) Start: 10-18-2023 octreotide,faiza rospheres (SandoSTATIN LAR [place]) 20 mg injection Inject 20 mg into the appropriate muscle Once every four weeks. 10/18/2023 Active Start: 09-03-2022 Octreotide chalo tierney 20 MG Kit injection Indications: Carcinoid syndrome , Primary malignant neuroendocrine tumor of appendix Inject 20 mg intramuscularly every 28 days. Diagnosis code: E34.0 1 kit 11 09/03/2022 Active octreotide (Sand oSTATIN) 100 MCG/ML injection Infuse 100 mcg into a venous catheter in the morning and 100 mcg in the evening and 100 mcg before bedtime. Active ondansetron 4 mg oral tablet (20 sources) Serotonin-3 Receptor Antagonist Start: 11-09-2024 End: 07-07-2025 take 1 tablet by mouth every eight hours as needed Ondansetron 4 MG tablet Take 1 tablet by mouth every 8 hours as needed for Nausea / Vomiting. 60 tablet 11 11/09/2024 07/07/2025 Active Start: 04-06-2024 End: 07-05-2024 take 1 tablet [...] Start Date: 01/25/24 Status: Ordered Start: 12-10-2023 End: 09-28-2024 take 1 tablet by mouth every eight hours as needed for pain oxyCODONE 5 MG tablet Indications: Abdominal pain, unspecified abdominal location Take 1 tablet by mouth every 8 hours as needed for Severe Pain for up to 7 days. 21 tablet 12/10/2023 09/28/2024 Discontinued Start: 05-28-2022 End: 05-29-2022 take 1 tablet [...] daily. 0 Active Probiotic Product (PROBIOTIC PO) (20 sources) Probiotic Produc t (PROBIOTIC PO) Take by mouth. + Prebiotic Active rifAXIMin 550 mg oral tablet (1 source) Rifamycin Antibacterial Start: 03-08-2025 End: 03-22-2025 take 1 tablet by mouth three times daily rifaximin 550 mg oral tablet 550 mg = 1 tab(s), Oral, TID, X 14 day(s), # 42 tab(s), Refills(s) 0, Pharmacy: [facility]/pharmacy #[id number], 154, cm, 03/08/25 14:03:00 EDT, Height/Length Dosing, 68.2, kg, 03/08/25 14:03:00 EDT, Weight Dosing Start Date: 03/08/25 Stop Date: 03/22/25 Status: Ordered Quantity: 42.0 Unit: tab(s) Repeat number: 1 rimegepant 75 mg disintegrating oral tablet (4 sources) Start: 12-28-2024 Rimegepant (Nurtec) 75 MG Tab Dispersible Take 1 tablet by mouth daily as needed for up to 96 doses. Use one tablet at the onset of severe migraine. Don't exceed one tablet within 24 hours. 8 tablet 11 12/28/2024 Active rizatriptan 10 mg oral tablet (5 sources) Serotonin-1b and Serotonin-1d Receptor Agonist Start: 11-09-2024 take 1 tablet by mouth every two hours as needed for headache rizatriptan 10 MG tablet Take 1 tablet by mouth as needed (for severe headache/migraine ). May repeat in 2 hours if needed, max daily dose 30 mg 9 tablet 11 11/09/2024 Active simethicone 180 mg oral capsule (1 source) Start: 03-08-2025 take 1 capsule by mouth four times daily as needed simethicone 180 mg oral capsule 180 mg = 1 cap(s), Oral, QID, PRN Gas, # 120 cap(s), Refills(s) 3, Pharmacy: [facility]/pharmacy #[id number], 154, cm, 03/08/25 14:03:00 EDT, Height/Length Dosing, 68.2, kg, 03/08/25 14:03:00 EDT, Weight Dosing Start Date: 03/08/25 Status: Ordered Quantity: 120.0 Unit: cap(s) Repeat number: 4 vancomycin 125 mg oral capsule (4 sources) [...] acetaminophen (TYLENOL) tabl et 975 mg take 2 tablets by mo uth every four hours Acetaminophen 325 MG tablet Take 2 tablets by mouth every 4 hours. Active End: 04-13-2024 take 500 mg by mouth in the morning Acetaminophen (TYLENOL EXTRA STRENGTH PO) Take 500 mg by mouth in the morning. Active 500 ml albumin human, alf 50 mg/ml injection (1 source) Human Serum Albumin Start: 05-24-2022 End: 05-24-2022 albumin human 5 % injection 25 g amylase [id number] unt / lipase [id number] unt / protease [id number] unt delayed release oral capsule (20 sources) Start: 11-22-2023 End: 09-28-2024 Pancrelipase, Ybb-Vyls-Xcmd, (Creon) [id number] units Cap DR Particles Please take one cap with each meal, and one cap with each snack. 120 capsule 11/22/2023 09/28/2024 Discontinued Start: 09-10-2022 Pancrelipase, Esd-Pvtv-Goyw, (Creon) [id number] units Cap DR Particles Indications: Exocrine pancreatic insufficiency Take two caps with each meal and one cap with each snack 210 capsule 1 09/10/2022 Active barium sulfate (READI-CAT) 2 % oral susp [...] 05-22-2022 End: 05-22-2022 lactated ringers IV solution cetirizine hydrochloride 10 mg oral tablet (4 sources) Histamine-1 Receptor Antagonist Start: 10-21-2023 End: 08-17-2024 take 1 tablet by mouth at bedtime cetirizine (ZyrTEC ALLERGY) 10 MG tablet Indications: Mastitis Take 1 tablet (10 mg) by mouth at bedtime 90 tablet 2 10/21/2023 08/17/2024 Discontinued Citalopram (1 source) Serotonin Reuptake Inhibitor CeleXA Not-Taking dicyclomine hydrochloride 10 mg oral capsule (17 sources) Anticholinergic Start: 12-10-2023 End: 09-28-2024 take 1 capsule by mouth four times daily as needed for muscle spasms Dicyclomine 10 MG capsule Take 1 capsule by mouth 4 times daily as needed for Abdominal Spasms for up to 7 days. 28 capsule 12/10/2023 09/28/2024 Discontinued diphenhydrAMINE (BENADRYL) injection 25 mg (1 source) Start: 05-22-2022 End: 05-29-2022 diphenhydrAMINE (BENADRYL) injection 25 mg 1 ml erenumab-aooe 70 mg/ml auto-injector (4 sources) Start: 11-09-2024 End: 11-15-2024 inject 70 mg by subcutaneous injection every 30 days Erenumab-aooe (Aimovig) 70 MG/ML Solution Auto-injector Inject 70 mg under the skin every 30 days. 1 mL 11/09/2024 11/15/2024 Discontinued (Cost of medication) gabapentin 100 mg oral capsule (5 sources) [...] End: 05-22-2022 heparin injection 5,000 Units Ibuprofen (17 sources) Nonsteroidal Anti-inflammatory Drug Start: 05-26-2022 End: 05-29-2022 ibuprofen (MOTRIN) tablet 600 mg Start: 05-25-2022 End: 05-26-2022 ibuprofen (ADVIL;MOTRIN) ora l suspension 600 mg Start: 05-22-2022 End: 05-25-2022 ibuprofen (MOTRIN) tablet 60 0 mg take 1 tablet by jodi th every six hours as needed Ibuprofen 400 MG tablet Take 1 tablet by mouth every 6 hours as needed for Mild Pain. Active take 1 tablet by jodi th [...] in Water liquid (free water) 950 mL (3 sources) Start: 09-18-2024 End: 09-18-2024 take 1 dose by mouth once 15,000 mg, Oral, ONCE, 1 dose, On Wed09/18/24 at 1300, For administration to inpatients, to be given by RN on inpatient nursing unit., [place] Procedure Start: 02-07-2024 End: 02-07-2024 take 1 dose by mouth once 15,000 mg, Oral, ONCE, 1 dos e, On 02/07/24 at 1300, For administration to [...] (OMNIPAQUE) 350 MG/M L injection 1-171 mL (8 sources) Start: 01-22-2025 End: 01-22-2025 1-171 mL, Intravenous, ONCE, 1 dose, On Wed01/22/25 at 1045, Extravasation Risk, CT Procedure Start: 09-18-2024 End: 09-18-2024 1-171 mL, Intravenous, ONCE, 1 dose, On Wed09/18/24 at 1230, Extravasation Risk, CT Procedure Start: 04-13-2024 End: 04-13-2024 1-171 mL, Intravenous, [...] Iohexol (OMNIPAQUE) 9 MG/ML Bottle 1,000 mL (2 sources) Start: 01-22-2025 End: 01-22-2025 take 1 dose by mouth once 1,000 mL, Oral, ONCE, 1 dose, On 01/22/25 at 1000, For administration to inpatients, to be given by RN on inpatient nursing unit., CT Procedure Start: 04-13-2024 End: 04-13-2024 take 1 dose by mouth once 1,000 mL, Oral, ONCE, 1 dose , On Eliana 04/13/24 at 1815, For administration to inpatients, to be given by RN on inpatient nursing unit., CT Procedure 50 ml magnesium sulfate 80 m g/ml [...] At bedtime. 0 06/09/2022 Discontinued (Therapy completed) omeprazole 20 mg delayed release oral capsule (20 sources) Proton Pump Inhibitor Start: 04-07-2023 End: 08-17-2024 take 1 capsule by mouth before mealtime omeprazole (PriLOSEC) [address] capsule Indications: Heart burn Take 1 capsule (20 mg) by mouth in the morning. Take before meals. Do not crush or chew. . 90 capsule 3 04/07/2023 08/17/2024 Discontinued omeprazole [address] capsule Take 1 capsule by mouth as needed. 0 Active ondansetron 4mg/2ml (ZOFRAN) injection 4 mg (1 [...] (CHLORASEPTIC) 1.4 % oral spray 2 spray PNV no.95/ferrous fum/folic ac ( ORAL) (1 source) End: 04-13-2024 take 1 tablet by mouth in the morning PNV no.95/ferrous fum/folic ac ( ORAL) Take 1 tablet by mouth in the morning. 04/13/2024 Discontinued (Patient Stopped On Own) polyethylene glycol 3350 42494 mg powder for oral solution (2 sources) [...] AD PO) Take by mouth. Active sennosides, alf 8.6 mg oral tablet (3 sources) Start: 05-27-2022 End: 06-09-2022 take 1 tablet by mouth once daily as needed for constipation senna 8.6 MG tablet Take 1 tablet by mouth daily as needed for Constipation. Continue stool softeners while on narcotics. Hold for loose stools. 0 05/28/2022 06/09/2022 Discontinued (Therapy completed) 20 ml sodium chloride 9 mg/ml injection (10 sources) Start: 01-22-2025 End: 01-22-2025 1-100 mL, Intravenous, ONCE NEEDED, 1 dose, Starting on Wed01/22/25 at 1044, Until Wed01/22/25 at 1044, Flush, CT Procedure Start: 09-18-2024 End: 09-18-2024 1-100 mL, Intravenous, ONCE NEEDED, 1 dose, Starting on Wed09/18/24 at 1228, Until Wed09/18/24 at 1350, Flush, CT Procedure Start: 04-13-2024 End: 04-13-2024 1-100 mL, Intravenous, ONCE NEEDED, 1 dose, Starting on Eliana 04/13/24 at 1800, Until Eliana 04/13/24 at 1900, Flush, CT Procedure Start: 02-07-2024 End: 02-07-2024 1-100 mL, Intravenous, ONCE NEEDED, 1 dose, Starting on 02/07/24 at 1346, Until Wed02/07/24 at 1347, Flush, CT Procedure Start: 11-06-2023 [...] Date Documented Da te Episodic/Chronic Abdominal pain (19 sources) Unspecified abdominal pain; Translations: [Right lower quadrant pain] Onset: 02-03-2022 Episodic Anxiety disorders (2 sources) Mixed anxiety and depressive disorder 01-25-2024 Chronic Biliary tract disease (2 sources) Cholelithiasis without obstruction 01-25-2024 Episodic Cancer of cervix (2 sources) Atypical squamous cells of undetermined significance on cervical Papanicolaou smear 01-25-2024 Episodic Cancer of colon (2 sources) Malignant tumor of appendix; 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] 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-2022 Chronic Cardiac dysrhythmias (6 sources) Tachycardia; Translations: [Tachycardia, unspecified] Onset: 10-10-2022 Episodic Genitourinary symptoms and ill-defined conditions (2 sources) Increased frequency of urination; Translations: [Frequency of micturition] Onset: 12-22-2021 Resolved: 12-22-2021 Episodic Headache; including migraine (10 sources) Migraine; Translations: [Migraine without aura, not refractory ] 01-25-2024 Chronic Headache; including migraine (2 sources) Headache; including migraine; Translations: [Headache, unspecified] Onset: 09-28-2024 Immunizations and screening for infectious disease (7 sources) Raised antinuclear antibody; Translations: [Raised antibody titer] Onset: 12-21-2024 Episodic Intestinal infection (2 sources) Clostridium difficile colitis 01-25-2024 Episodic Malaise and fatigue (1 source) Chronic fatigue syndrome; 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)] 12-21-2024 Chronic Malaise and fatigue (4 sources) Other fatigue; Translations: [OTHER FATIGUE] Onset: 10-02-2022 Episodic Malignant neoplasm without specification of site (20 sources) Primary malignant neuroendocrine neoplasm of appendix; Translations: [Other malignant neuroendocrine tumors] Onset: 04-21-2022 Chronic Menstrual disorders (4 sources) Menstrual period late; Translations: [Irregular menstruation, unspecified] Onset: 12-22-2021 Resolved: 12-22-2021 Chronic Mood disorders (1 source) Major depressive disorder, single episode, unspecified; Translations: [NONA DEPRESS D/O SINGLE EPIS UNS] Onset: 04-09-2022 Chronic Nausea and vomiting (3 sources) Nausea; Translations: [Nausea] Onset: 08-14-2022 Episodic Neoplasms of unspecified nature or uncertain behavior (15 sources) Neoplasm of uncertain behavior of appendix; Translations: [Neoplasm of appendix] Onset: 02-19-2022 03-09-2023 Episodic Nonmalignant breast conditions (8 sources) Unspecified lump in unspecified breast; Translations: [Solitary cyst of left breast] Onset: 09-23-2022 Episodic Nutritional deficiencies (3 sources) Vitamin D deficiency, unspecified; Translations: [Vitamin D deficiency] Onset: 09-04-2022 01-25-2024 Chronic Nutritional deficiencies (2 sources) Iron deficiency 01-25-2024 Episodic Other connective tissue disease (2 sources) Fibromyalgia; Translations: [Fibromyalgia] Episodic Other connective tissue disease (2 sources) Pain in lower limb 01-25-2024 Episodic Other connective tissue disease (2 sources) Fibromyalgia; Translations: [Fibromyalgia] Onset: 12-21-2024 Episodic Other endocrine disorders (20 sources) Carcinoid syndrome; 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] Onset: 09-03-2022 Chronic Other endocrine disorders (3 sources) Carcinoid syndrome; 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] Onset: 12-01-2022 Chronic Other endocrine disorders (2 sources) Hyperinsulinism 01-25-2024 Chronic Other female genital disorders (4 sources) Pelvic congestion syndrome; Translations: [Other specified conditions associated with female genital organs and menstrual cycle] 11-13-2024 Episodic Other gastrointestinal disorders (6 sources) Diarrhea; Translations: [Diarrhea, unspecified] Onset: 01-25-2024 01-13-2024 Episodic Other gastrointestinal disorders (2 sources) H/O: colitis 01-25-2024 Episodic Other gastrointestinal disorders (1 source) Swollen abdomen; Translations: [Abdominal distension (gaseous)] Onset: 03-08-2025 Episodic Other gastrointestinal disorders (1 source) Abdominal bloating 03-08-2025 Episodic Other infections; including parasitic (1 source) H/O: infectious disease; Translations: [Personal history of other infectious and parasitic diseases] Onset: 01-25-2024 Episodic Other inflammatory condition of skin (1 source) Rosacea; Translations: [Rosacea, unspecified] 12-21-2024 Chronic Other inflammatory condition of skin (2 sources) Rosacea, unspecified; Translations: [Rosacea, unspecified] Onset: 12-21-2024 Chronic Other liver diseases (1 source) Elevated liver enzymes level; Translations: [Abnormal levels of other serum enzymes] 11-26-2023 Episodic Other liver diseases (1 source) Enzyme level - finding; Translations: [Abnormal levels of other serum enzymes] Onset: 02-07-2024 Episodic Other lower respiratory disease (3 sources) Dyspnea; Translations: [Shortness of breath] Episodic Other nervous system disorders (2 sources) Other chronic pain; Translations: [Other chronic pain] Onset: 12-21-2024 Chronic Other nervous system disorders (1 source) Postoperative pain ; Translations: [Other acute postprocedural pain] Episodic Other non-traumatic joint disorders (1 source) Multiple joint pain; Translations: [Pain in unspecified joint] 12-21-2024 Episodic Other non-traumatic joint disorders (2 sources) Pain in unspecified joint; Translations: [Pain in unspecified joint] Onset: 12-21-2024 Episodic Other nutritional; endocrine; and metabolic disorders (20 sources) Obese class I; Translations: [Obesity, unspecified] Onset: 10-22-2022 10-22-2022 Chronic Other and delivery including normal (2 sources) Third trimester ; Translations: [Encounter for supervision of normal , unspecified, third trimester] 08-18-2023 Episodic Personality disorders (2 sources) Borderline personality disorder 01-25-2024 Chronic Regional enteritis and ulcerative colitis (1 source) Ulcerative colitis Onset: 04-13-2024 Chronic Residual codes; unclassified (1 source) Pain, unspecified; Translations: [Pain, unspecified] Onset: 04-19-2024 Episodic Unclassified (1 source) CONTACT W/AND (SUSP) EXPOS COVID-19; Translations: [CONTACT W/AND (SUSP) EXPOS COVID-19] Onset: 04-06-2022 Unclassified (12 sources) OB Reminders Onset: 03-15-2023 03-15-2023 Unclassified (1 source) Myalgic encephalomyelitis/chr onic fatigue syndrome; Translations: [Myalgic encephalomyelitis/chr onic fatigue syndrome] Onset: 12-21-2024 Urinary tract infections (3 sources) Interstitial cystitis (chronic) without hematuria; Translations: [Chronic interstitial cystitis] Onset: 12-21-2024 12-21-2024 Chronic Past or Other Problems Problem Classification Problem Date Documented Da te Episodic/Chronic Appendicitis and other appendiceal conditions (1 source) Unspecified acute appendicitis; Translations: [UNSPECIFIED ACUTE APPENDICITIS] Onset: 02-10-2022 Episodic Gastrointestinal hemorrhage (3 sources) Melena; Translations: [Black feces] Onset: 04-13-2024 04-13-2024 Episodic Mood disorders (20 sources) Mood disorders Onset: 06-09-2022 Resolved: 01-30-2025 06-09-2022 Noninfectious gastroenteritis (3 sources) Noninfective gastroenteritis and colitis, unspecified; Translations: [Colitis] Onset: 04-13-2024 04-13-2024 Episodic Other aftercare (1 source) Other terminal computer operator (current) drug therapy; Translations: [OTH LONG-TERM CURRENT DRUG THERAPY] Onset: 04-09-2022 Episodic Other and unspecified benign neoplasm (4 sources) Other benign neuroendocrine tumors; Translations: [OTHER BENIGN NEUROENDOCRINE TUMORS] Onset: 04-08-2022 Episodic Other and unspecified benign neoplasm (1 source) Benign carcinoid tumor of the appendix; Translations: [BENIGN CARCINOID TUMOR THE APPENDIX] Onset: 02-10-2022 Episodic Other and unspecified benign neoplasm (5 sources) Neuroendocrine neoplasm of appendix; Translations: [Other benign neuroendocrine tumors] Onset: 02-19-2022 04-14-2024 Episodic Other complications of (4 sources) dysrhythmia; Translations: [Maternal care for abnormalities of the heart rate or rhythm, unspecified trimester, not applicable or unspecified] Onset: 07-07-2023 07-07-2023 Episodic Other complications of (4 sources) High risk ; Translations: [Supervision of [...] OTH PART DIGESTV TRACT] 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-2022 Episodic Unclassified (1 source) 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 Unclassified (1 source) Myalgic encephalomyelitis/chr onic fatigue syndrome; Translations: [Myalgic encephalomyelitis/chr onic fatigue syndrome] Onset: 12-21-2024 Urinary tract infections (1 source) Acute cystitis without hematuria Onset: 12-22-2021 Resolved: 12-22-2021 Episodic Results Test Name Value Interpretation Reference Range Facility Gastroenterology Office/Clin ic Noteon 03-09-2025 Gastroenterology Office/Clinic Note Gastroenterology Office/Clinic Note Chief Complaint abd pain, nausea, bloating, diarrhea HPI Staff Established patient is a(n) 29 year old female who presents today for a sick call with c/o nausea, bloating, diarrhea and abdominal pain, gas. Had a CT 01/2024 at [facility] that showed thickening of colon. Pt is concerned she has SIBO. Having postprandial bloating. 10-15 diarrheal BM's a day. Lower abdominal pain and nausea. EGD/Colon 04/2024 @ [facility]. Pt stated she would have them fax us results, but never received. Any blood thinners? no Any GLP-1 agonists? no CT scan 02/08/24 @ [facility]: IMPRESSION: No evidence of metastatic disease in the abdomen or pelvis. Near diffuse mild colonic mural thickening, compatible with nonspecific colitis. History of Present Illness Reviewed HPI collected by staff Review of Systems PHQ Score Initial Depression Screen Score: 0 SCORE All systems reviewed, negative; Except for above Physical Exam Vitals & Measurements HR: 91(Peripheral) RR: 16 BP: 118/83 HT: 61 in HT: 154 cm WT: 150.355 lb WT: 68.2 kg BMI: 28.76 No acute distress Assessment/Plan 1. Abdominal pain (R10.9: Unspecified abdominal pain) Had a CT 01/2024 at [facility] that showed thickening of colon Having postprandial bloating with distention High risk for SIBO Lower abdominal pain and nausea - Colestid prescribed - Simethicone prescribed - Xifaxan prescribed 2. Nausea (R11.0: Nausea) 3. 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 Abdominal bloating (R14.0: Abdominal distension (gaseous)) I, Aurelia Carcamo, personally scribed for Diego Apodaca on 03/08/2025 14:22:46. . Follow-up With When Contact Information Paulie DUPONT, JIAN Davis MED In 2 months [address] [facility], [address] [phone] [phone] Additional Instructions: Problem List/Past Medical History Ongoing Abdominal bloating Abdominal pain HUNTER positive Anxiety and depression ASCUS of cervix with negative high risk HPV Borderline personality disorder Breast lump in female C. difficile colitis Calculus of gallbladder without cholecystitis without obstruction Diarrhea History of Clostridium difficile colitis Hyperinsulinemia Iron deficiency Leg pain Migraine headache Nausea Neoplasm of appendix Neuroendocrine carcinoma Tachycardia Unspecified abdominal pain Vitamin D deficiency Historical No qualifying data Procedure/Surgical History Colonoscopy (04/18/2024), Partial resection of small bowel using robotic assistance (05/27/2022), Right hemicolectomy (05/27/2022), Laparoscopic appendectomy (02/03/2022), section, Cholecystectomy. Medications Abilify 2 mg Tab, Oral, Daily Colestid 1 g Tab, 2 gm= 2 tab(s), Oral, BID, 3 refills Emgality Prefilled Pen, SubCutaneous, qMonth hydrOXYzine, 100 mg Lamictal 100 mg Tab, Oral, BID Nurtec ODT, See Instructions octreotide 20 mg IM Inj, See Instructions Prozac 20 mg Cap, Oral, Daily rifaximin 550 mg oral tablet, 550 mg= 1 tab(s), Oral, TID simethicone 180 mg oral capsule, 180 mg= 1 cap(s), Oral, QID, PRN, 3 refills Allergies Flagyl (Nausea) gabapentin (Nausea, Diarrhea) Social History Alcohol - Denies Alcohol Use, 01/25/2024 Never., 03/03/2025 Substance Abuse Never., 03/03/2025 Tobacco - No Risk, 01/25/2024 Never (less than 100 in lifetime) Tobacco Use:., 03/08/2025 Family History Anxiety: Mother. Asthma: Father. Cancer: Aunt. Depression: Mother. Diabetes mellitus: Mother. Hypertension: Mother and Sister. Kidney disease: Father. Immunizations Vaccine Date Status Comments SARS-CoV-2 (COVID-19) mRNA BNT-162b2 vax 06/19/2021 Recorded 2024-01-25: TPVALL influenza virus vaccine, inactivated 04/28/2021 Recorded 2024-01-25: NULL SARS-CoV-2 (COVID-19) mRNA-1273 vaccine 08/28/2020 Recorded SARS-CoV-2 (COVID-19) mRNA-1273 vaccine 07/31/2020 Recorded diphtheria/pertussis, acel/tetanus adult 08/14/2010 Recorded meningococcal conjugate vaccine 08/14/2010 Recorded human papillomavirus vaccine 08/14/2010 Recorded measles/mumps/rubella virus vaccine 04/03/2002 Recorded poliovirus vaccine, inactivated 09/20/2000 Recorded measles/mumps/rubella virus vaccine 09/20/2000 Recorded hepatitis B pediatric vaccine 09/20/2000 Recorded Hib, unspecified formulation 09/20/2000 Recorded DTaP, unspecified formulation 09/20/2000 Recorded poliovirus vaccine, inactivated 1997 Recorded Hib, unspecified formulation 1997 Recorded DTaP, unspecified formulation 1997 Recorded poliovirus vaccine, inactivated 1997 Recorded hepatitis B pediatric vaccine 1997 Recorded Hib, unspecif (more content not included)... [facility] Comment on above: Result Comment: Elec tronically Signed By: Aurelia Carcamo MA\.br\Date and Time Signed: 03/08/25 14:35 EDT\.br\Electronically Co-Signed By: Diego Apodaca MD\.br\Date and Time Co-Signed: 03/09/25 12:26 EDT Ambulatory Visit Summaryon 0 03-08-2025 Ambulatory Visit Summary Ambulatory Visit Summary ZAINAB SWIFT :1995 Visit Date:03/08/2025 Ambulatory Visit Instructions Your Diagnosis Abdominal pain Nausea Diarrhea Abdominal bloating Your Care Team Attending Physician - Diego Apodaca MD Primary Care Physician - ERIN SAMS CNP This Is Your Medications List colestipol (Colestid 1 g Tab) rifaximin (rifaximin 550 mg oral tablet) simethicone (simethicone 180 mg oral capsule) Contact prescribing physician if questions or concerns aripiprazole (Abilify 2 mg Tab) fluoxetine (Prozac 20 mg Cap) galcanezumab (Emgality Prefilled Pen) hydrOXYzine lamotrigine (Lamictal 100 mg Tab) octreotide (octreotide 20 mg IM Inj) rimegepant (Nurtec ODT) Procedures Performed Colonoscopy (04/18/2024), Partial resection of small bowel using robotic assistance (05/27/2022), Right hemicolectomy (05/27/2022), Laparoscopic appendectomy (02/03/2022), section, Cholecystectomy. Discharge Vitals Heart Rate (Peripheral) 91 Respiratory Rate 16 Blood Pressure 118/83 Height 154 cm Height 61 in Weight 68.2 kg Weight 150.355 lb BMI 28.76 What to do next You Need to Schedule the Following Appointments Follow Up with Paulie DUPONT, JIAN Davis, [facility] When: In 2 months Where: [facility], [address] [address] [phone] Medications What How Much When Instructions New colestipol (Colestid 1 g Tab) 2 Tablets By Mouth 2 times a day Refills: 3 with a full glass of water Pickup at [facility]/pharmacy #[id number] New rifaximin (rifaximin 550 mg oral tablet) 1 Tablets By Mouth 3 times a day Duration: 14 Days Pickup at [facility]/pharmacy #[id number] New simethicone (simethicone 180 mg oral capsule) 1 Capsules By Mouth 4 times a day as needed for Gas Refills: 3 Pickup at [facility]/pharmacy #[id number] Unchanged aripiprazole (Abilify 2 mg Tab) By Mouth Every day Contact prescribing physician if questions or concerns Unchanged fluoxetine (Prozac 20 mg Cap) By Mouth Every day Contact prescribing physician if questions or concerns Unchanged galcanezumab (Emgality Prefilled Pen) Subcutaneous Once a month Contact prescribing physician if questions or concerns Unchanged hydrOXYzine 100 Milligram Contact prescribing physician if questions or concerns Unchanged lamotrigine (Lamictal 100 mg Tab) By Mouth 2 times a day Contact prescribing physician if questions or concerns Unchanged octreotide (octreotide 20 mg IM Inj) See instructions 20 mg IntraMuscular as needed Contact prescribing physician if questions or concerns Unchanged rimegepant (Nurtec ODT) See instructions as needed Contact prescribing physician if questions or concerns [id number] [address] [place], [place] [id number] [phone] Allergies Flagyl (Nausea) gabapentin (Nausea, Diarrhea) Problems Ongoing - Any problem that you are currently receiving treatment for. Abdominal bloating Abdominal pain HUNTER positive Anxiety and depression ASCUS of cervix with negative high risk HPV Borderline personality disorder Breast lump in female C. difficile colitis Calculus of gallbladder without cholecystitis without obstruction Diarrhea History of Clostridium difficile colitis Hyperinsulinemia Iron deficiency Leg pain Migraine headache Nausea Neoplasm of appendix Neuroendocrine carcinoma Tachycardia Unspecified abdominal pain Vitamin D deficiency Patient Survey You may receive a survey via text or e-mail asking about your office visit. Please share your experience with us by completing your survey. We appreciate your feedback and thank you for choosing us for your care. Patient Portal You may access all of your results and other medical record information on our secure patient portal. If you are not signed up for this yet, please contact [employer] at [phone] to get signed up today. Language Information Language assistance services are available as needed. [facility] CT ABDOMEN/PELVIS WITH AND W ITHOUT CONTRASTon 01-23-2025 CT ABDOMEN/PELVIS WITH AND WITHOUT CONTRAST EXAM: [...] TISSUES: No suspicious osseous lesions are identified. IMPRESSION: 1. No definite evidence of metastatic [...] error, please notify the sender immediately at [phone] and permanently delete the original report and destroy any copies or printouts. Normal [facility] CBC AND ELECTRONIC DIFFon Basophils (Bld) [#/Vol] 0.05 10*3/uL 0.00 - 0.15 K/uL [facility] Basophils/100 WBC (Bld) 0.8 % [facility] Differential cell count method Nom (Bld) Electronic Differential [facility] Eosinophils (Bld) [#/Vol] 0.24 10*3/uL 0.00 - 0.42 K/uL [facility] Eosinophils/100 WBC (Bld) 3.6 % [facility] Erythrocyte distribution width (RBC) [Ratio] 12.3 % 10.8 - 14.9 % [facility] Hematocrit (Bld) [Volume fraction] 40.8 % 34.9 - 44.3 % [facility] Hemoglobin (Bld) [Mass/Vol] 13.4 g/dL 11.4 - 15.2 g/dL [facility] Immature granulocytes (Bld) [#/Vol] K/uL NINF - 0.08 K/uL [facility] Immature granulocytes/100 WBC (Bld) 0.3 % [facility] Lymphocytes (Bld) [#/Vol] 2.06 10*3/uL 1.16 - 3.51 K/uL [facility] Lymphocytes/100 WBC (Bld) 31 % [facility] MCH (RBC) [Entitic mass] 28.2 pg 25.9 - 33.9 pg [facility] MCHC (RBC) [Mass/Vol] 32.8 g/dL 31.4 - 35.9 g/dL [facility] MCV (RBC) [Entitic vol] 85.7 fL 79.6 - 97.7 fL [facility] Monocytes (Bld) [#/Vol] 0.46 10*3/uL 0.22 - 0.87 K/uL [facility] Monocytes/100 WBC (Bld) 6.9 % [facility] Neutrophils (Bld) [#/Vol] 3.82 10*3/uL 1.64 - 7.28 K/uL [facility] Nucleated RBC/100 WBC (Bld) [Ratio] 0 % NINF [facility] Platelet mean volume (Bld) [Entitic vol] 9.5 fL 8.5 - 12.2 fL [facility] Platelets (Bld) [#/Vol] 337 10*3/uL 150 - 393 K/uL [facility] RBC (Bld) [#/Vol] 4.76 10*6/uL [facility] Segmented neutrophils/100 WBC (Bld) 57.4 % [facility] WBC (Bld) [#/Vol] 6.65 10*3/uL 3.99 - 11. 19 K/uL [facility] Basophils (Bld) [#/Vol] 0.05 10*3/uL Normal 0.00-0.15 [facility] Comment on above: Performed By: #### E SR #### [facility] (DEFAULT) [address] [address] Basophils/100 WBC (Bld) 0.8 % Normal [facility] Comment on above: Performed By: #### E SR #### [facility] (DEFAULT) [address] [address] DIFF STATUS Electronic Differential Normal [facility] Comment on above: Performed By: #### E SR #### [facility] (DEFAULT) [address] [address] Eosinophils (Bld) [#/Vol] 0.24 10*3/uL Normal 0.00-0.42 [facility] Comment on above: Performed By: #### E SR #### [facility] (DEFAULT) [address] [address] Eosinophils/100 WBC (Bld) 3.6 % Normal [facility] Comment on above: Performed By: #### E SR #### [facility] (DEFAULT) [address] [address] Hematocrit (Bld) [Volume fraction] 40.8 % Normal 34.9-44.3 [facility] Comment on above: Performed By: #### E SR #### [facility] (DEFAULT) [address] [address] Hemoglobin (Bld) [Mass/Vol] 13.4 g/dL Normal 11.4-15.2 [facility] Comment on above: Performed By: #### E SR #### [facility] (DEFAULT) [address] [address] Immature Grans % 0.3 % Normal [facility] Comment on above: Performed By: #### E SR #### [facility] (DEFAULT) [address] [address] Immature Grans Absolute < Normal <=0.08 [facility] Comment on above: Performed By: #### E SR #### [facility] (DEFAULT) [address] [address] Lymphocytes (Bld) [#/Vol] 2.06 10*3/uL Normal 1.16-3.51 [facility] Comment on above: Performed By: #### E SR #### [facility] (DEFAULT) [address] [address] Lymphocytes/100 WBC (Bld) 31.0 % Normal [facility] Comment on above: Performed By: #### E SR #### [facility] (DEFAULT) [address] [address] MCV (RBC) [Entitic vol] 85.7 fL Normal 79.6-97.7 [facility] Comment on above: Performed By: #### E SR #### [facility] (DEFAULT) [address] [place] [address] Mean Cell Hgb 28.2 pg Normal 25.9-33.9 [facility] Comment on above: Performed By: #### E SR #### [facility] (DEFAULT) [address] [address] Mean Cell Hgb Conc 32.8 g/dL Normal 31.4-35.9 [facility] Comment on above: Performed By: #### E SR #### [facility] (DEFAULT) [address] [address] Monocytes (Bld) [#/Vol] 0.46 10*3/uL Normal 0.22-0.87 [facility] Comment on above: Performed By: #### E SR #### [facility] (DEFAULT) [address] [address] Monocytes/100 WBC (Bld) 6.9 % Normal [facility] Comment on above: Performed By: #### E SR #### [facility] (DEFAULT) [address] [address] Nucleated RBC 0.0 /100 WBC Normal <=0.2 [facility] Comment on above: Performed By: #### E SR #### [facility] (DEFAULT) [address] [address] Platelet mean volume (Bld) [Entitic vol] 9.5 fL Normal 8.5-12.2 [facility] Comment on above: Performed By: #### E SR #### [facility] (DEFAULT) [address] [address] Platelets (Bld) [#/Vol] 337 10*3/uL Normal 150-393 [facility] Comment on above: Performed By: #### E SR #### [facility] (DEFAULT) [address] [place] [address] RBC (Bld) [#/Vol] 4.76 10*6/uL Normal 3.91-5.04 [facility] Comment on above: Performed By: #### E SR #### [facility] (DEFAULT) [address] [address] RBC Distribution 12.3 % Normal 10.8-14.9 [facility] Comment on above: Performed By: #### E SR #### [facility] (DEFAULT) [address] [address] Segs + Bands Auto 57.4 % Normal [facility] Comment on above: Performed By: #### E SR #### [facility] (DEFAULT) [address] [address] Segs + Bands,Absolute Auto 3.82 K/uL Normal 1.64-7.28 [facility] Comment on above: Performed By: #### E SR #### [facility] (DEFAULT) [address] [address] WBC (Bld) [#/Vol] 6.65 10*3/uL Normal 3.99-11.19 [facility] Comment on above: Performed By: #### E SR #### [facility] (DEFAULT) [address] [address] CHROMOGRANIN Aon 01-22-2025 Chromogranin A 29 ng/mL Normal <93 [facility] Comment on above: Result Comment: ADDITIONAL INFORMATION The testing method is a homogeneous time-resolved immunofluorescent assay manufactured by [employer] and performed on the [employer] Compact Plus. Values obtained with different [...] examination and other findings. Test Performed by: [facility] [address] [place] [address] Bilingual Inside Sales Representative: Jami Sher Ph.D.; CLIA# [id number] Performed By: #### Y CHGRA #### [facility] (DEFAULT) [address] METABOLIC PANE [facility] 01-22-2025 Albumin [Mass/Vol] 4.8 g/dL 3.5 - 5.0 g/dL [facility] ALP [Catalytic activity/Vol] 52 U/L 32 - 126 U/L [facility] ALT [Catalytic activity/Vol] 13 U/L 9 - 48 U/L [facility] Anion gap [Moles/Vol] 12 mmol/L 7 - 17 mmol/L [facility] AST [Catalytic activity/Vol] 13 U/L 10 - 39 U/L [facility] Bilirubin [Mass/Vol] 0.5 mg/dL NINF - 1.5 mg/dL [facility] Calcium [Mass/Vol] 9.6 mg/dL 8.6 - 10. 5 mg/dL [facility] Chloride [Moles/Vol] 104 mmol/L 98 - 108 mmol/L [facility] CO2 [Moles/Vol] 27 mmol/L 21 - 31 mmol/L [facility] Creatinine [Mass/Vol] 0.72 mg/dL 0.50 - 1.20 mg/dL [facility] eGFR, CKD-EPI, Female - PINF [facility] Comment on above: Reported eGFR is bas ed on the CKD-EPI 2020 equation using creatinine, age, and sex. Glucose [Mass/Vol] 90 mg/dL 70 - 179 mg/dL [facility] Osmolality Calc [Osmolality] 289 [facility] Potassium [Moles/Vol] 4.1 mmol/L 3.5 - 5.0 mmol/L [facility] Protein [Mass/Vol] 7.5 g/dL 6.4 - 8.3 g/dL [facility] Sodium [Moles/Vol] 139 mmol/L 135 - 145 mmol/L [facility] Urea nitrogen [Mass/Vol] 10 mg/dL 7 - 25 mg/dL [facility] Urea nitrogen/Creatinine [Mass ratio] 14 mg/mg [facility] Albumin [Mass/Vol] 4.8 g/dL Normal 3.5-5.0 [facility] Comment on above: Performed By: #### E SR #### [facility] (DEFAULT) [address] [place] [address] ALP [Catalytic activity/Vol] 52 U/L Normal 32-126 [facility] Comment on above: Performed By: #### E SR #### [facility] (DEFAULT) [address] [place] [address] ALT [Catalytic activity/Vol] 13 U/L Normal 9-48 [facility] Comment on above: Performed By: #### E SR #### [facility] (DEFAULT) [address] [place] [address] 36998 Anion gap [Moles/Vol] 12 mmol/L Normal 7-17 [facility] Comment on above: Performed By: #### E SR #### [facility] (DEFAULT) [address] [place] [address] 78982 AST [Catalytic activity/Vol] 13 U/L Normal 10-39 [facility] Comment on above: Performed By: #### E SR #### [facility] (DEFAULT) [address] [place] [address]64 Bilirubin [Mass/Vol] 0.5 mg/dL Normal <1.5 [facility] Comment on above: Performed By: #### E SR #### [facility] (DEFAULT) [address] [place] [address] Calcium [Mass/Vol] 9.6 mg/dL Normal 8.6-10.5 [facility] Comment on above: Performed By: #### E SR #### [facility] (DEFAULT) [address] [address] Chloride [Moles/Vol] 104 mmol/L Normal 98-108 [facility] Comment on above: Performed By: #### E SR #### [facility] (DEFAULT) [address] [place] [address]190 CO2 [Moles/Vol] 27 mmol/L Normal 21-31 [facility] Comment on above: Performed By: #### E SR #### [facility] (DEFAULT) [address] [address] Creatinine [Mass/Vol] 0.72 mg/dL Normal 0.50-1.20 [facility] Comment on above: Performed By: #### E SR #### [facility] (DEFAULT) [address] [address] eGFR, CKD-EPI, Female > Normal >=60 [facility] Comment on above: Result Comment: Repo rted eGFR is based on the CKD-EPI 2020 equation using creatinine, age, and sex. Performed By: #### E SR #### [facility] (DEFAULT) [address] [address] Glucose [Mass/Vol] 90 mg/dL Normal Nonfastin -179 mg/dL; Fastin-99 [facility] Comment on above: Performed By: #### E SR #### [facility] (DEFAULT) [address] [place] [address] Osmolality [Osmolality] 289 mosm/kg Normal 278-305 [facility] Comment on above: Performed By: #### E SR #### [facility] (DEFAULT) [address] [address] Potassium [Moles/Vol] 4.1 mmol/L Normal 3.5-5.0 [facility] Comment on above: Performed By: #### E SR #### [facility] (DEFAULT) [address] [place] [address] Protein [Mass/Vol] 7.5 g/dL Normal 6.4-8.3 [facility] Comment on above: Performed By: #### E SR #### [facility] (DEFAULT) [address] [place] [address] Sodium [Moles/Vol] 139 mmol/L Normal 135-145 [facility] Comment on above: Performed By: #### E SR #### [facility] (DEFAULT) [address] [place] [address] Urea nitrogen [Mass/Vol] 10 mg/dL Normal 7-25 [facility] Comment on above: Performed By: #### E SR #### [facility] (DEFAULT) [address] [address] Urea nitrogen/Creatinine [Mass ratio] 14 mg/mg Normal [facility] Comment on above: Performed By: #### E SR #### [facility] (DEFAULT) [address] [address] LACTATE DEHYDROGENASEon 07-0 Interpretation and review of laboratory results Normal [facility] LDH Lactate to pyruvate reaction [Catalytic activity/Vol] 113 U/L 100 - 190 U/L [facility] LD Total 113 U/L Normal 100-190 [facility] Comment on above: Performed By: #### Y MAJOR #### [facility] (DEFAULT) [address] [address] No Panel Informationon 01-22 [facility] ALDOLASEon 12-21-2024 Aldolase 2.9 U/L Normal <7.7 [facility] Comment on above: Result Comment: ADDITIONAL INFORMATION This test has been modified from the hvac technician's instructions. Its performance characteristics were determined by [facility] in a manner consistent with CLIA requirements. This test has not been cleared or approved by the U.S. Food and Drug Administration. Test Performed by: [place] [address] Bilingual Inside Sales Representative: Jami Sher Ph.D.; CLIA# [id number] Performed By: #### Y MAJOR #### [facility] (DEFAULT) [address] [place] [address] C REACTIVE PROTEINon 025 CRP High sensitivity method [Mass/Vol] 0.6 mg/L NINF - 10.00 mg/L [facility] CRP [Mass/Vol] 0.60 mg/L Normal <10.00 [facility] Comment on above: Performed By: #### Y MAJOR #### [facility] (DEFAULT) [address] [place] [address] C3,C4on 12-21-2024 Complement C3 [Mass/Vol] 155 mg/dL 87 - 200 mg/dL [facility] Complement C4 [Mass/Vol] 38 mg/dL 18 - 52 mg/dL [facility] C3 155 mg/dL Normal 87-200 [facility] Comment on above: Performed By: #### Y MAJOR #### [facility] (DEFAULT) [address] [place] [address] C4 38 mg/dL Normal 18-52 [facility] Comment on above: Performed By: #### Y MJAOR #### [facility] (DEFAULT) [address] [place] [address] CBC AND ELECTRONIC DIFFon Basophils (Bld) [#/Vol] 0.06 10*3/uL Normal 0.00-0.15 [facility] Comment on above: Performed By: #### Y MAJOR #### [facility] (DEFAULT) [address] [place] [address] Basophils/100 WBC (Bld) 0.7 % Normal [facility] Comment on above: Performed By: #### Y MAJOR #### [facility] (DEFAULT) [address] [place] [address] DIFF STATUS Electronic Differential Normal [facility] Comment on above: Performed By: #### Y MAJOR #### [facility] (DEFAULT) [address] [address] Eosinophils (Bld) [#/Vol] 0.30 10*3/uL Normal 0.00-0.42 [facility] Comment on above: Performed By: #### Y MAJOR #### [facility] (DEFAULT) [address] [place] [address] Eosinophils/100 WBC (Bld) 3.7 % Normal [facility] Comment on above: Performed By: #### Y MAJOR #### [facility] (DEFAULT) [address] [address] Hematocrit (Bld) [Volume fraction] 40.9 % Normal 34.9-44.3 [facility] Comment on above: Performed By: #### Y MAJOR #### [facility] (DEFAULT) [address] [address] Hemoglobin (Bld) [Mass/Vol] 13.1 g/dL Normal 11.4-15.2 [facility] Comment on above: Performed By: #### Y MAJOR #### [facility] (DEFAULT) [address] [address] Immature Grans % 0.2 % Normal [facility] Comment on above: Performed By: #### Y MAJOR #### [facility] (DEFAULT) [address] [address] Immature Grans Absolute < Normal <=0.08 [facility] Comment on above: Performed By: #### Y MAJOR #### [facility] (DEFAULT) [address] [address] Lymphocytes (Bld) [#/Vol] 2.19 10*3/uL Normal 1.16-3.51 [facility] Comment on above: Performed By: #### Y MAJOR #### [facility] (DEFAULT) [address] [place] [address] Lymphocytes/100 WBC (Bld) 27.1 % Normal [facility] Comment on above: Performed By: #### Y MAJOR #### [facility] (DEFAULT) [address] [place] [address] MCV (RBC) [Entitic vol] 86.3 fL Normal 79.6-97.7 [facility] Comment on above: Performed By: #### Y MAJOR #### [facility] (DEFAULT) [address] [place] [address] Mean Cell Hgb 27.6 pg Normal 25.9-33.9 [facility] Comment on above: Performed By: #### Y MAJOR #### [facility] (DEFAULT) [address] [place] [address] Mean Cell Hgb Conc 32.0 g/dL Normal 31.4-35.9 [facility] Comment on above: Performed By: #### Y MAJOR #### [facility] (DEFAULT) [address] [place] [address] Monocytes (Bld) [#/Vol] 0.53 10*3/uL Normal 0.22-0.87 [facility] Comment on above: Performed By: #### Y MAJOR #### [facility] (DEFAULT) [address] [place] [address] Monocytes/100 WBC (Bld) 6.6 % Normal [facility] Comment on above: Performed By: #### Y MAJOR #### [facility] (DEFAULT) [address] [place] [address] Nucleated RBC 0.0 /100 WBC Normal <=0.2 [facility] Comment on above: Performed By: #### Y MAJOR #### [facility] (DEFAULT) [address] [place] [address] Platelet mean volume (Bld) [Entitic vol] 10.2 fL Normal 8.5-12.2 [facility] Comment on above: Performed By: #### Y MAJOR #### [facility] (DEFAULT) [address] [address] Platelets (Bld) [#/Vol] 354 10*3/uL Normal 150-393 [facility] Comment on above: Performed By: #### Y MAJOR #### [facility] (DEFAULT) [address] [address] RBC (Bld) [#/Vol] 4.74 10*6/uL Normal 3.91-5.04 [facility] Comment on above: Performed By: #### Y MAJOR #### [facility] (DEFAULT) [address] [address] RBC Distribution 12.6 % Normal 10.8-14.9 [facility] Comment on above: Performed By: #### Y MAJOR #### [facility] (DEFAULT) [address] [address] Segs + Bands Auto 61.7 % Normal [facility] Comment on above: Performed By: #### Y MAJOR #### [facility] (DEFAULT) [address] [address] Segs + Bands,Absolute Auto 4.98 K/uL Normal 1.64-7.28 [facility] Comment on above: Performed By: #### Y MAJOR #### [facility] (DEFAULT) [address] [address] WBC (Bld) [#/Vol] 8.08 10*3/uL Normal 3.99-11.19 [facility] Comment on above: Performed By: #### Y MAJOR #### [facility] (DEFAULT) [address] [address] [facility] CK [Catalytic activity/Vol] 46 U/L 30 - 184 U/L [facility] Interpretation and review of laboratory results Normal [facility] CK [Catalytic activity/Vol] 46 U/L Normal 30-184 [facility] Comment on above: Performed By: #### Y MAJOR #### [facility] (DEFAULT) [address] [place] [address] COMPREHENSIVE METABOLIC PANE Shamir 12-21-2024 Albumin [Mass/Vol] 4.9 g/dL 3.5 - 5.0 g/dL [facility] ALP [Catalytic activity/Vol] 50 U/L 32 - 126 U/L [facility] ALT [Catalytic activity/Vol] 13 U/L 9 - 48 U/L [facility] Anion gap [Moles/Vol] 13 mmol/L 7 - 17 mmol/L [facility] AST [Catalytic activity/Vol] 12 U/L 10 - 39 U/L [facility] Bilirubin [Mass/Vol] 0.3 mg/dL NINF - 1.5 mg/dL [facility] Calcium [Mass/Vol] 10 mg/dL 8.6 - 10. 5 mg/dL [facility] Chloride [Moles/Vol] 103 mmol/L 98 - 108 mmol/L [facility] CO2 [Moles/Vol] 29 mmol/L 21 - 31 mmol/L [facility] Creatinine [Mass/Vol] 0.58 mg/dL 0.50 - 1.20 mg/dL [facility] eGFR, CKD-EPI, Female - PINF [facility] Comment on above: Reported eGFR is bas ed on the CKD-EPI 2020 equation using creatinine, age, and sex. Glucose [Mass/Vol] 77 mg/dL 70 - 179 mg/dL [facility] Osmolality Calc [Osmolality] 292 [facility] Potassium [Moles/Vol] 4.8 mmol/L 3.5 - 5.0 mmol/L [facility] Protein [Mass/Vol] 7.6 g/dL 6.4 - 8.3 g/dL [facility] Sodium [Moles/Vol] 140 mmol/L 135 - 145 mmol/L [facility] Urea nitrogen [Mass/Vol] 10 mg/dL 7 - 25 mg/dL [facility] Urea nitrogen/Creatinine [Mass ratio] 17 mg/mg [facility] Albumin [Mass/Vol] 4.9 g/dL Normal 3.5-5.0 [facility] Comment on above: Performed By: #### Y MAJOR #### [facility] (DEFAULT) [address] [place] [address] ALP [Catalytic activity/Vol] 50 U/L Normal 32-126 [facility] Comment on above: Performed By: #### Y MAJOR #### [facility] (DEFAULT) [address] [place] [address] ALT [Catalytic activity/Vol] 13 U/L Normal 9-48 [facility] Comment on above: Performed By: #### Y MAJOR #### [facility] (DEFAULT) [address] [place] [address] Anion gap [Moles/Vol] 13 mmol/L Normal 7-17 [facility] Comment on above: Performed By: #### Y MAJOR #### [facility] (DEFAULT) [address] [place] [address] AST [Catalytic activity/Vol] 12 U/L Normal 10-39 [facility] Comment on above: Performed By: #### Y MAJOR #### [facility] (DEFAULT) [address] [place] [address] Bilirubin [Mass/Vol] 0.3 mg/dL Normal <1.5 [facility] Comment on above: Performed By: #### Y MAJOR #### [facility] (DEFAULT) [address] [place] [address] Calcium [Mass/Vol] 10.0 mg/dL Normal 8.6-10.5 [facility] Comment on above: Performed By: #### Y MAJOR #### [facility] (DEFAULT) [address] [place] [address] Chloride [Moles/Vol] 103 mmol/L Normal 98-108 [facility] Comment on above: Performed By: #### Y MAJOR #### [facility] (DEFAULT) [address] [place] [address] CO2 [Moles/Vol] 29 mmol/L Normal 21-31 [facility] Comment on above: Performed By: #### Y MAJOR #### [facility] (DEFAULT) [address] [place] [address] Creatinine [Mass/Vol] 0.58 mg/dL Normal 0.50-1.20 [facility] Comment on above: Performed By: #### Y MAJOR #### [facility] (DEFAULT) [address] [place] [address] eGFR, CKD-EPI, Female > Normal >=60 [facility] Comment on above: Result Comment: Repo rted eGFR is based on the CKD-EPI 2020 equation using creatinine, age, and sex. Performed By: #### Y MAJOR #### [facility] (DEFAULT) [address] [place] [address] Glucose [Mass/Vol] 77 mg/dL Normal Nonfastin -179 mg/dL; Fastin-99 [facility] Comment on above: Performed By: #### Y MAJOR #### [facility] (DEFAULT) [address] [place] [address] Osmolality [Osmolality] 292 mosm/kg Normal 278-305 [facility] Comment on above: Performed By: #### Y MAJOR #### [facility] (DEFAULT) [address] [place] [address] Potassium [Moles/Vol] 4.8 mmol/L Normal 3.5-5.0 [facility] Comment on above: Performed By: #### Y MAJOR #### [facility] (DEFAULT) [address] [place] [address] Protein [Mass/Vol] 7.6 g/dL Normal 6.4-8.3 [facility] Comment on above: Performed By: #### Y MAJOR #### [facility] (DEFAULT) [address] [place] [address] Sodium [Moles/Vol] 140 mmol/L Normal 135-145 [facility] Comment on above: Performed By: #### Y MAJOR #### [facility] (DEFAULT) [address] [place] [address] Urea nitrogen [Mass/Vol] 10 mg/dL Normal 7-25 [facility] Comment on above: Performed By: #### Y MAJOR #### [facility] (DEFAULT) [address] [place] [address] Urea nitrogen/Creatinine [Mass ratio] 17 mg/mg Normal [facility] Comment on above: Performed By: #### Y MAJOR #### [facility] (DEFAULT) [address] [place] [address] CYCLIC CITRULLINATE PEPTIDE ABOrdered By: Anna Hwang on 12-21-2024 Cyclic citrullinated peptide Ab IA Qn (S) U/mL NINF - 5.00 U/mL [facility] Interpretation and review of laboratory results Normal [facility] CYCLIC CITRULLINATE PEPTIDE ABon 12-21-2024 Cyclic Citrullinated Peptide Ab <0.54 Normal <5.00 [facility] Comment on above: Performed By: #### Y CCP #### [facility] (DEFAULT) [address] [place] [address] No Panel Informationon 12-21 Interpretation and review of laboratory results Normal [facility] RHEUMATOID FACTOROrdered By: Georgina Ferguson on 12-21-2024 Interpretation and review of laboratory results Normal [facility] Rheumatoid factor Qn NINF [facility] RHEUMATOID FACTORon 12-22-19 Rheumatoid Factor <10 Normal <=14 [facility] Comment on above: Performed By: #### Y MAJOR #### [facility] (DEFAULT) [address] [place] [address] SEDIMENTATION RATE, AUTOMATE Don 12-21-2024 ESR (Bld) [Velocity] 10 mm/h NINF [facility] Interpretation and review of laboratory results Normal [facility] ESR Westergren 10 mm/hr Normal <20 [facility] Comment on above: Performed By: #### E SR #### [facility] (DEFAULT) [address] [place] [address] URINALYSIS REFLEX TO CULTURE PERFORMABLEon 12-21-2024 Appearance (U) Clear Normal Clear [facility] Comment on above: Performed By: #### U [id number] #### [facility] (DEFAULT) [address] [place] [address] Bacteria ABSENT Normal ABSENT [facility] Comment on above: Performed By: #### U [id number] #### [facility] (DEFAULT) [address] [place] [address] Blood Urine Negative Normal Negative [facility] Comment on above: Performed By: #### U [id number] #### [facility] (DEFAULT) [address] [place] [address] Color (U) Yellow Normal Yellow [facility] Comment on above: Performed By: #### U [id number] #### [facility] (DEFAULT) [address] [place] [address] Glucose Ql (U) Negative Normal Negative [facility] Comment on above: Performed By: #### U [id number] #### [facility] (DEFAULT) [address] [place] [address] Ketones Ql (U) Negative Normal Negative [facility] Comment on above: Performed By: #### U [id number] #### [facility] (DEFAULT) [address] [place] [address] Leukocyte esterase Test strip Ql (U) Negative Normal Negative [facility] Comment on above: Performed By: #### U [id number] #### [facility] (DEFAULT) [address] [place] [address] Nitrites Urine Negative Normal Negative [facility] Comment on above: Performed By: #### U [id number] #### [facility] (DEFAULT) [address] [place] [address] pH (U) 5.0 [pH] Normal 5.0-7.0 [facility] Comment on above: Performed By: #### U [id number] #### [facility] (DEFAULT) [address] [place] [address] Protein Urine Negative Normal Negative [facility] Comment on above: Performed By: #### U [id number] #### [facility] (DEFAULT) [address] [place] [address] RBC Urine 0-2 Normal 0-2 [facility] Comment on above: Performed By: #### U [id number] #### [facility] (DEFAULT) [address] [address] Specific [place] Urine 1.021 Normal 1.001-1.035 [facility] Comment on above: Performed By: #### U [id number] #### [facility] (DEFAULT) [address] [place] [address] Squamous/Epithelial Cells, Urine 3-5/hpf = 1+ Normal 0-2/hpf, 3-5/hpf = 1+ [facility] Comment on above: Performed By: #### U [id number] #### [facility] (DEFAULT) [address] [address] Urobilinogen Urine 0.2 E.U./dL Normal 0.2 E.U/d L, 1.0 E.U/dL [facility] Comment on above: Performed By: #### U [id number] #### [facility] (DEFAULT) [address] [place] [address] WBC Urine 0 - 5 Normal 0 - 5 [facility] Comment on above: Performed By: #### U [id number] #### [facility] (DEFAULT) [address] [place] [address] URINE PROTEIN/CREA RATIO, RA NDOMon 12-21-2024 Creatinine (24H U) [Mass/Vol] 134.51 mg/dL [facility] Protein Unsp time (U) [Mass/Vol] 6 mg/dL [facility] Protein/Creatinine (U) [Mass ratio] 0.045 mg/mg [facility] Creatinine (U) [Mass/Vol] 134.51 mg/dL Normal [facility] Comment on above: Performed By: #### E SR #### [facility] (DEFAULT) [address] [place] [address] Prot/Creat Ratio 0.045 mg/mg Normal [facility] Comment on above: Performed By: #### E SR #### [facility] (DEFAULT) [address] [place] [address] Protein Ql (U) 6 mg/dL Normal [facility] Comment on above: Performed By: #### E SR #### [facility] (DEFAULT) [address] [place] [address] No Panel Informationon 11-14 STAPHYLOCOCCUS EPIDERMIDIS, HAEMOLYTICUS, LUGDUNENSIS, SAPROPHYTICUS (URINA 0 [facility] STAPHYLOCOCCUS EPIDERMIDIS, HAEMOLYTICUS, LUGDUNENSIS, SAPROPHYTICUS (URINA Not detected [facility] URINARY TRACT INFECTION (HTR X)on 11-14-2024 ACINETOBACTER BAUMANII 0 [facility] ACINETOBACTER BAUMANII Not detected [facility] OLIVER ALBICANS, PARAPSILOSIS, TROPICALIS 0 [facility] OLIVER ALBICANS, PARAPSILOSIS, TROPICALIS Not detected [facility] OLIVER GLABRATA 0 [facility] OL[facility] GLABRATA Not detected [facility] OLIVER KRUSEI 0 [facility] OL[facility] KRUSEI Not detected N[facility] CITROBACTER FREUNDII 0 [facility] CITROBACTER FREUNDII Not detected [facility] ENTEROBACTER AEROGENES, CLOACAE 0 [facility] ENTEROBACTER AEROGENES, CLOACAE Not detected [facility] ENTEROCOCCUS FAECALIS, FAECIUM 0 [facility] ENTEROCOCCUS FAECALIS, FAECIUM Not detected [facility] ESCHERICHIA COLI 0 [facility] ESCHERICHIA COLI Not detected [facility] KLEBSIELLA PNEUMONIAE, OXYTOCA 0 [facility] KLEBSIELLA PNEUMONIAE, OXYTOCA Not detected [facility] MORGANELLA MORGANII 0 [facility] MORGANELLA MORGANII Not detected [facility] PROTEUS MIRABILIS, VULGARIS 0 [facility] PROTEUS MIRABILIS, VULGARIS Not detected [facility] PSEUDOMONAS AERUGINOSA 0 [facility] PSEUDOMONAS AERUGINOSA Not detected [facility] SERRATIA MARCESCENS 0 [facility] SERRATIA MARCESCENS Not detected [facility] STAPHYLOCOCCUS AUREUS 0 [facility] STAPHYLOCOCCUS AUREUS Not detected [facility] STREPTOCOCCUS AGALACTIAE (GROUP B STREP) 0 [facility] STREPTOCOCCUS AGALACTIAE (GROUP B STREP) Not detected [facility] STREPTOCOCCUS PYOGENES (GROUP A STREP) 0 [facility] STREPTOCOCCUS PYOGENES (GROUP A STREP) Not detected [facility] Urine Cultureon 11-02-2024 Bacteria identified Cx Nom (U) >100,000 colonies/ml mixed bacterial skin contaminants 2 Days PERFORMED BY: [place] [id number] PATHOLOGIST RIB STIFFENER AND HEEL DIPPER SULEMA CARLIN M.D. Normal [facility] Comment on above: Performed By: #### C UU #### [address] ABDOMEN/PELVIS WITH AND W ITHOUT CONTRASTon 09-19-2024 CT ABDOMEN/PELVIS WITH AND WITHOUT CONTRAST EXAM: CT ABDOMEN/PELVIS WITH AND WITHOUT CONTRAST COMPARISON: 04/13/2024 CLINICAL INDICATIONS: hx of neuroendocrine cancer; hx of NET, and Low grade appendiceal mucinous neoplasm TECHNIQUE: CT scanning was performed through the abdomen prior to the administration of intravenous contrast. Following the administration of intravenous contrast, CT scanning was performed through the abdomen during the arterial phase and through the abdomen and pelvis during the portal venous phase. Oral contrast was administered. PROTOCOL: Liver protocol FINDINGS: LOWER THORAX: Remotely stable 5 mm subpleural left lower lobe nodule, highly likely benign (series 4 image 23). LIVER: Unremarkable BILIARY: Cholecystectomy. PANCREAS: Unremarkable SPLEEN: Unremarkable ADRENAL GLANDS: Unremarkable KIDNEYS/URETERS: Unremarkable PELVIC ORGANS/BLADDER: Unremarkable GI TRACT: Right hemicolectomy. No bowel obstruction. PERITONEUM: No free air or fluid LYMPH NODES: No enlarged lymph nodes VESSELS: Unremarkable BONES AND SOFT TISSUES: Unremarkable IMPRESSION: No evidence of metastatic disease in the abdomen or pelvis. Piotr Topete M.D. This report has been [...] error, please notify the sender immediately at [phone] and permanently delete the original report and destroy any copies or printouts. Normal [facility] CBC AND ELECTRONIC DIFFon Basophils (Bld) [#/Vol] 0.07 10*3/uL 0.00 - 0.15 K/uL [facility] Basophils/100 WBC (Bld) 0.8 % [facility] Differential cell count method Nom (Bld) Electronic Differential [facility] Eosinophils (Bld) [#/Vol] 0.14 10*3/uL 0.00 - 0.42 K/uL [facility] Eosinophils/100 WBC (Bld) 1.7 % [facility] Erythrocyte distribution width (RBC) [Ratio] 12.6 % 10.8 - 14.9 % [facility] Hematocrit (Bld) [Volume fraction] 41.5 % 34.9 - 44.3 % [facility] Hemoglobin (Bld) [Mass/Vol] 13.7 g/dL 11.4 - 15.2 g/dL [facility] Immature granulocytes (Bld) [#/Vol] K/uL NINF - 0.08 K/uL [facility] Immature granulocytes/100 WBC (Bld) 0.2 % [facility] Interpretation and review of laboratory results Abnormal [facility] Lymphocytes (Bld) [#/Vol] 2.59 10*3/uL 1.16 - 3.51 K/uL [facility] Lymphocytes/100 WBC (Bld) 31 % [facility] MCH (RBC) [Entitic mass] 28 pg 25.9 - 33.9 pg [facility] MCHC (RBC) [Mass/Vol] 33 g/dL 31.4 - 35.9 g/dL [facility] MCV (RBC) [Entitic vol] 84.7 fL 79.6 - 97.7 fL [facility] Monocytes (Bld) [#/Vol] 0.6 10*3/uL 0.22 - 0.87 K/uL [facility] Monocytes/100 WBC (Bld) 7.2 % [facility] Neutrophils (Bld) [#/Vol] 4.93 10*3/uL 1.64 - 7.28 K/uL [facility] Nucleated RBC/100 WBC (Bld) [Ratio] 0 % NINF [facility] Platelet mean volume (Bld) [Entitic vol] 9.4 fL 8.5 - 12.2 fL [facility] Platelets (Bld) [#/Vol] 395 10*3/uL High 150 - 393 K/uL [facility] RBC (Bld) [#/Vol] 4.9 10*6/uL [facility] Segmented neutrophils/100 WBC (Bld) 59.1 % [facility] WBC (Bld) [#/Vol] 8.35 10*3/uL 3.99 - 11. 19 K/uL [facility] Basophils (Bld) [#/Vol] 0.07 10*3/uL Normal 0.00-0.15 [facility] Comment on above: Performed By: #### L AB980 #### [facility] (DEFAULT) [address] [address] Basophils/100 WBC (Bld) 0.8 % Normal [facility] Comment on above: Performed By: #### L AB980 #### [facility] (DEFAULT) [address] [place] [address] DIFF STATUS Electronic Differential Normal [facility] Comment on above: Performed By: #### L AB980 #### [facility] (DEFAULT) [address] [place] [address] Eosinophils (Bld) [#/Vol] 0.14 10*3/uL Normal 0.00-0.42 [facility] Comment on above: Performed By: #### L AB980 #### [facility] (DEFAULT) [address] [place] [address] Eosinophils/100 WBC (Bld) 1.7 % Normal [facility] Comment on above: Performed By: #### L AB980 #### [facility] (DEFAULT) [address] [address] Hematocrit (Bld) [Volume fraction] 41.5 % Normal 34.9-44.3 [facility] Comment on above: Performed By: #### L AB980 #### [facility] (DEFAULT) [address] [place] [address] Hemoglobin (Bld) [Mass/Vol] 13.7 g/dL Normal 11.4-15.2 [facility] Comment on above: Performed By: #### L AB980 #### [facility] (DEFAULT) [address] [address] Immature Grans % 0.2 % Normal [facility] Comment on above: Performed By: #### L AB980 #### [facility] (DEFAULT) [address] [place] [address] Immature Grans Absolute < Normal <=0.08 [facility] Comment on above: Performed By: #### L AB980 #### [facility] (DEFAULT) [address] [address] Lymphocytes (Bld) [#/Vol] 2.59 10*3/uL Normal 1.16-3.51 [facility] Comment on above: Performed By: #### L AB980 #### [facility] (DEFAULT) [address] [place] [address] Lymphocytes/100 WBC (Bld) 31.0 % Normal [facility] Comment on above: Performed By: #### L AB980 #### [facility] (DEFAULT) [address] [place] [address] MCV (RBC) [Entitic vol] 84.7 fL Normal 79.6-97.7 [facility] Comment on above: Performed By: #### L AB980 #### [facility] (DEFAULT) [address] [place] [address] Mean Cell Hgb 28.0 pg Normal 25.9-33.9 [facility] Comment on above: Performed By: #### L AB980 #### [facility] (DEFAULT) [address] [place] [address] Mean Cell Hgb Conc 33.0 g/dL Normal 31.4-35.9 [facility] Comment on above: Performed By: #### L AB980 #### [facility] (DEFAULT) [address] [place] [address] Monocytes (Bld) [#/Vol] 0.60 10*3/uL Normal 0.22-0.87 [facility] Comment on above: Performed By: #### L AB980 #### [facility] (DEFAULT) [address] [place] [address] Monocytes/100 WBC (Bld) 7.2 % Normal [facility] Comment on above: Performed By: #### L AB980 #### [facility] (DEFAULT) [address] [place] [address] Nucleated RBC 0.0 /100 WBC Normal <=0.2 [facility] Comment on above: Performed By: #### L AB980 #### [facility] (DEFAULT) [address] [place] [address] Platelet mean volume (Bld) [Entitic vol] 9.4 fL Normal 8.5-12.2 [facility] Comment on above: Performed By: #### L AB980 #### [facility] (DEFAULT) [address] [address] Platelets (Bld) [#/Vol] 395 10*3/uL High 150-393 [facility] Comment on above: Performed By: #### L AB980 #### [facility] (DEFAULT) [address] [address] RBC (Bld) [#/Vol] 4.90 10*6/uL Normal 3.91-5.04 [facility] Comment on above: Performed By: #### L AB980 #### [facility] (DEFAULT) [address] [address] RBC Distribution 12.6 % Normal 10.8-14.9 [facility] Comment on above: Performed By: #### L AB980 #### [facility] (DEFAULT) [address] [address] Segs + Bands Auto 59.1 % Normal [facility] Comment on above: Performed By: #### L AB980 #### [facility] (DEFAULT) [address] [address] Segs + Bands,Absolute Auto 4.93 K/uL Normal 1.64-7.28 [facility] Comment on above: Performed By: #### L AB980 #### [facility] (DEFAULT) [address] [address] WBC (Bld) [#/Vol] 8.35 10*3/uL Normal 3.99-11.19 [facility] Comment on above: Performed By: #### L AB980 #### [facility] (DEFAULT) [address] [address] CHROMOGRANIN Aon 09-18-2024 Chromogranin A 74 ng/mL Normal <93 [facility] Comment on above: Result Comment: ADDITIONAL INFORMATION The testing method is a homogeneous time-resolved immunofluorescent assay manufactured by [employer] and performed on the [employer] K[employer] Compact Plus. Values obtained with different [...] examination and other findings. Test Performed by: [place] [address] Bilingual Inside Sales Representative: Jami Sher Ph.D.; CLIA# [id number] Performed By: #### Y CHGRA #### [facility] (DEFAULT) [address] [place] [address] COMPREHENSIVE METABOLIC PANE [facility] 09-18-2024 Albumin [Mass/Vol] 5.1 g/dL High 3.5 - 5.0 g/dL [facility] ALP [Catalytic activity/Vol] 56 U/L 32 - 126 U/L [facility] ALT [Catalytic activity/Vol] 12 U/L 9 - 48 U/L [facility] Anion gap [Moles/Vol] 14 mmol/L 7 - 17 mmol/L [facility] AST [Catalytic activity/Vol] 12 U/L 10 - 39 U/L [facility] Bilirubin [Mass/Vol] 0.5 mg/dL NINF - 1.5 mg/dL [facility] Calcium [Mass/Vol] 9.7 mg/dL 8.6 - 10. 5 mg/dL [facility] Chloride [Moles/Vol] 104 mmol/L 98 - 108 mmol/L [facility] CO2 [Moles/Vol] 25 mmol/L 21 - 31 mmol/L [facility] Creatinine [Mass/Vol] 0.7 mg/dL 0.50 - 1.20 mg/dL [facility] eGFR, CKD-EPI, Female - PINF [facility] Comment on above: Reported eGFR is bas ed on the CKD-EPI 2020 equation using creatinine, age, and sex. Glucose [Mass/Vol] 70 mg/dL 70 - 99 mg/dL [facility] Interpretation and review of laboratory results Abnormal [facility] Osmolality Calc [Osmolality] 288 [facility] Potassium [Moles/Vol] 4 mmol/L 3.5 - 5.0 mmol/L [facility] Protein [Mass/Vol] 8.1 g/dL 6.4 - 8.3 g/dL [facility] Sodium [Moles/Vol] 139 mmol/L 135 - 145 mmol/L [facility] Urea nitrogen [Mass/Vol] 11 mg/dL 7 - 25 mg/dL [facility] Urea nitrogen/Creatinine [Mass ratio] 16 mg/mg [facility] Albumin [Mass/Vol] 5.1 g/dL High 3.5-5.0 [facility] Comment on above: Performed By: #### C MPN, LDO #### [facility] (DEFAULT) [address] [place] [address] ALP [Catalytic activity/Vol] 56 U/L Normal 32-126 [facility] Comment on above: Performed By: #### C MPN, LDO #### [facility] (DEFAULT) [address] [place] [address] ALT [Catalytic activity/Vol] 12 U/L Normal 9-48 [facility] Comment on above: Performed By: #### C MPN, LDO #### [facility] (DEFAULT) [address] [place] [address] Anion gap [Moles/Vol] 14 mmol/L Normal 7-17 [facility] Comment on above: Performed By: #### C MPN, LDO #### [facility] (DEFAULT) [address] [place] [address] AST [Catalytic activity/Vol] 12 U/L Normal 10-39 [facility] Comment on above: Performed By: #### C MPN, LDO #### [facility] (DEFAULT) [address] [place] [address] Bilirubin [Mass/Vol] 0.5 mg/dL Normal <1.5 [facility] Comment on above: Performed By: #### C MPN, LDO #### [facility] (DEFAULT) [address] [place] [address] Calcium [Mass/Vol] 9.7 mg/dL Normal 8.6-10.5 [facility] Comment on above: Performed By: #### C MPN, LDO #### [facility] (DEFAULT) [address] [place] [address] Chloride [Moles/Vol] 104 mmol/L Normal 98-108 [facility] Comment on above: Performed By: #### C MPN, LDO #### [facility] (DEFAULT) [address] [place] [address] CO2 [Moles/Vol] 25 mmol/L Normal 21-31 [facility] Comment on above: Performed By: #### C MPN, LDO #### [facility] (DEFAULT) [address] [place] [address] Creatinine [Mass/Vol] 0.70 mg/dL Normal 0.50-1.20 [facility] Comment on above: Performed By: #### C MPN, LDO #### [facility] (DEFAULT) [address] [place] [address] eGFR, CKD-EPI, Female > Normal >=60 [facility] Comment on above: Result Comment: Repo rted eGFR is based on the CKD-EPI 2020 equation using creatinine, age, and sex. Performed By: #### C MPN, LDO #### [facility] (DEFAULT) [address] [place] [address] Glucose [Mass/Vol] 70 mg/dL Normal 70-99 [facility] Comment on above: Performed By: #### C MPN, LDO #### [facility] (DEFAULT) [address] [place] [address] Osmolality [Osmolality] 288 mosm/kg Normal 278-305 [facility] Comment on above: Performed By: #### C MPN, LDO #### [facility] (DEFAULT) [address] [place] [address] Potassium [Moles/Vol] 4.0 mmol/L Normal 3.5-5.0 [facility] Comment on above: Performed By: #### C MPN, LDO #### [facility] (DEFAULT) [address] [place] [address] Protein [Mass/Vol] 8.1 g/dL Normal 6.4-8.3 [facility] Comment on above: Performed By: #### C MPN, LDO #### [facility] (DEFAULT) [address] [place] [address] Sodium [Moles/Vol] 139 mmol/L Normal 135-145 [facility] Comment on above: Performed By: #### C MPN, LDO #### [facility] (DEFAULT) [address] [place] [address] Urea nitrogen [Mass/Vol] 11 mg/dL Normal 7-25 [facility] Comment on above: Performed By: #### C MPN, LDO #### [facility] (DEFAULT) [address] [place] [address] Urea nitrogen/Creatinine [Mass ratio] 16 mg/mg Normal [facility] Comment on above: Performed By: #### C MPN, LDO #### [facility] (DEFAULT) [address] [place] [address] LACTATE DEHYDROGENASEon 03-0 Interpretation and review of laboratory results Normal [facility] LDH Lactate to pyruvate reaction [Catalytic activity/Vol] 110 U/L 100 - 190 U/L [facility] LD Total 110 U/L Normal 100-190 [facility] Comment on above: Performed By: #### C SAGE BARRAGAN #### [facility] (DEFAULT) [address] [place] [address] No Panel Informationon 09-18 [facility] IGP,APTIMA HPV,AGE GDLNon AGE GDLN ACOG TESTING Note . [facility] Comment on above: TESTS RESULT FLAG UN ITS REF RANGE LAB Clinician Provided Cytology Information Source.............Cervix;Endocervix No. of containers..01 ThinPrep Vial Age Algo ACOG Joyce... FLAG LEGEND: L-Low Normal,H-High Normal,LL-Alert Low,HH-Alert High <-Panic Low,>-Panic High,A-Abnormal,AA-Critical Abnormal Performed at: 01 [facility] [place] [address] Dina Jaimes MD, IGP, RFX APTIMA HPV ASCU Note . [facility] [employer] Comment on above: TESTS RESULT FLAG UN ITS REF RANGE LAB DIAGNOSIS: 02 NEGATIVE FOR INTRAEPITHELIAL LESION OR MALIGNANCY. Specimen adequacy: 02 Satisfactory for evaluation. No endocervical component is identified. Performed by: 02 Eula Ramesh Keyboard Teacher (ASC) . 02 Note: Note 02 The Pap smear is a screening test designed to aid in the detection of premalignant and malignant conditions of the uterine cervix. It is not a diagnostic procedure and should not be used as the sole means of detecting cervical cancer. Both false-positive and false-negative reports do occur. Test Methodology: Note 02 This liquid based ThinPrep(R) pap test was screened with the use of an image guided system. . 02 The HPV DNA reflex criteria were not met with this specimen result therefore, no HPV testing was performed. FLAG LEGEND: L-Low Normal,H-High Normal,LL-Alert Low,HH-Alert High <-Panic Low,>-Panic High,A-Abnormal,AA-Critical Abnormal Performed at: [address] [address] Dina Jaimes MD, Performed at: = - [facility] [address] [id number] Bilingual Inside Sales Representative: Dina Jaimes MD, Phone: [phone] Performed at: [facility] [address] [id number] Bilingual Inside Sales Representative: Dina Jaimes MD, Phone: [phone] BRUSH-SPATULA CERVIX ENDOCERVIX [facility] EGD / Colonoscopyon 05-03-20 [facility] Pathology Request for Lab Co rpon 05-03-2024 Pathology Request for Lab Tosin Normal [facility] Comment on above: Order Comment: PATHO LOGY GI SPECIMEN Result Comment: See report. Scanned copy available in EMR. PERFORMED BY: [place] [id number] PATHOLOGIST RIB STIFFENER AND HEEL DIPPER FELY STODDARD M.D. Performed By: #### P ATH TO [facility] #### [place] [id number] [facility] Surgical Pathologyon 024 [facility] NUC PET NEUROENDOCRINEon NUC PET [...] to suggest recurrent or metastatic disease Normal [facility] PT Skull base to mid-thighon 04-25-2024 IMPRESSION: [...] body to suggest recurrent or metastatic disease [facility] Radiology Study observation (narrative) [facility] PT Skull base to mid-thighOr dered By: Marcella Sharma on 04-25-[address] [facility] [address] ABDOMEN/PELVIS WITH AND W ITHOUT CONTRASTon [...] disease in the abdomen and pelvis. Normal [facility] CT Abdomen [...] for patient age. No aggressive lesion. RADIOLOGY Tiana, Mandi Santos DO - 04/13/2024 EXAM: CT ABDOMEN/PELVIS WITH [...] metastatic disease in the abdomen and pelvis. [facility] Radiology Study observation (narrative) [facility] CT Abdomen and Pelvis WO and W contrast IVOrdered By: Mandi Montiel on 04-13-2024 [facility] Work Phone: US breast BI limitedon 04-03 US breast BI limited [facility] [address] Ultrasound Report Signed Patient: Zainab Mcclure MR#: [id number] : 1995 Acct:[id number] Age/Sex: 28 / F ADM Date: 04/03/24 Loc: [facility] Room: Type: [facility] Attending Dr: Erin Sams DIRECTOR OF RELIGIOUS ACTIVITIES-C Ordering Provider: Erin Sams CNP Date of Service: 04/03/24 US/US breast BI limited: N63.0 Copies to: Erin Sams CNP BILATERAL COMPLETE BREAST ULTRASOUND CLINICAL DATA: Bilateral palpable breast lumps COMPARISON: September 23, 2022 mammogram and ultrasound from [facility] Real-time ultrasound evaluation of all 4 quadrants [...] Beata Anthony M.D.04/03/2024 12:09 PM Dictation Location: [facility] Tech: Johana Edmonds Transcribed By: JOSE ELIAS 04/03/24 1203 Dictated By: Beata Anthony MD 04/03/24 0958 Signed By: 04/03/24 1209 Normal [facility] ALPHA 1 ANTITRYPSINon 2023 Alpha 1 antitrypsin [Mass/Vol] 125 mg/dL 84 - 218 mg/dL [facility] CERULOPLASMINon 11-26-2023 Ceruloplasmin [Mass/Vol] 31 mg/dL 20 - 60 mg/dL [facility] CHEM 7 (LYTES,BUN,CREA,GLUC) on 11-26-2023 Anion gap [Moles/Vol] 17 mmol/L 7 - 17 mmol/L [facility] Chloride [Moles/Vol] 102 mmol/L 98 - 108 mmol/L [facility] CO2 [Moles/Vol] 26 mmol/L 21 - 31 mmol/L [facility] Creatinine [Mass/Vol] 0.55 mg/dL 0.50 - 1.20 mg/dL [facility] eGFR, CKD-EPI, Female - PINF [facility] Comment on above: Reported eGFR is bas ed on the CKD-EPI 2020 equation using creatinine, age, and sex. Glucose [Mass/Vol] 123 mg/dL High 70 - 99 mg/dL [facility] Osmolality Calc [Osmolality] 294 [facility] Potassium [Moles/Vol] 3.8 mmol/L 3.5 - 5.0 mmol/L [facility] Sodium [Moles/Vol] 141 mmol/L 135 - 145 mmol/L [facility] Urea nitrogen [Mass/Vol] 7 mg/dL 7 - 25 mg/dL [facility] Urea nitrogen/Creatinine [Mass ratio] 13 mg/mg [facility] FERRITINon 11-26-2023 Ferritin [Mass/Vol] 26.5 ng/mL 7.3 - 27 0.7 ng/mL [facility] Interpretation and review of laboratory results Normal [facility] HEPATIC FUNCTION PANELon Albumin [Mass/Vol] 4.7 g/dL 3.5 - 5.0 g/dL [facility] ALP [Catalytic activity/Vol] 67 U/L 32 - 126 U/L [facility] ALT [Catalytic activity/Vol] 68 U/L High 9 - 48 U/L [facility] AST [Catalytic activity/Vol] 42 U/L High 10 - 39 U/L [facility] Bilirubin [Mass/Vol] 0.5 mg/dL NINF - 1.5 mg/dL [facility] Bilirubin.direct [Mass/Vol] 0.1 mg/dL NINF - 0.3 mg/dL [facility] Protein [Mass/Vol] 7.4 g/dL 6.4 - 8.3 g/dL [facility] IRON/IRON BINDING/TRANSFERRI Non 11-26-2023 Interpretation and review of laboratory results Normal [facility] Iron [Mass/Vol] 79 ug/dL [facility] Iron binding capacity [Mass/Vol] 346 [facility] Iron saturation [Mass fraction] 23 % 20 - 55 % [facility] Transferrin [Mass/Vol] 277 mg/dL 200 - 400 mg/dL [facility] No Panel Informationon 11-25 Interpretation and review of laboratory results Abnormal [facility] Interpretation and review of laboratory results Normal [facility] PROTIME-INRon 11-26-2023 INR Coag (Bld) [Relative time] 1.0 {INR} 0.9 - 1.1 [facility] Interpretation and review of laboratory results Normal [facility] PT Coag (PPP) [Time] 13.4 s [facility] TSHon 11-26-2023 Interpretation and review of laboratory results Normal [facility] TSH Qn 1.315 m[IU]/L [facility] MRI ABDOMEN/PELVIS WITHOUT C ONTRASTon 03-11-2023 IMPRESSION: [...] is not well visualized on this exam. [facility] Radiology Study observation (narrative) [facility] MRI ABDOMEN/PELVIS WITHOUT C ONTRASTOrdered By: Mandi Montiel on 03-11-2023 [facility] Work Phone: CT Chest W contrast Jason [...] No suspicious osseous lesion. RADIOLOGY Benjamin Santos, [facility] - 10/23/2022 EXAM: CT CHEST WITH [...] I have reviewed and approved this report. [facility] CT Chest W contrast IVOrdere d By: Benjamin Santos on 10-23-2022 [facility] CT Chest W contrast Jason Radiology Study observation (narrative) [facility] CT Neck W contrast Jason 04-0 [...] for mass or adenopathy in the neck. [facility]narrative[facility] IVOrdered By: Miguel Espinal on 10-22-2022 [facility] Work Phone: Cardiac echo study Procedure Ordered By: Guerrero Carvalho on 10-22-2022 Ao peak raj 1.26 m/s [facility] Work Phone: Ao VTI 19.98 cm [facility] Work Phone: Ascending aorta 2.62 cm [facility] Work Phone: AV LVOT peak gradient 3 mmHg [facility] Work Phone: AV [facility]: [facility] gradient 6 [facility]: [facility] System Work Phone: AV Velocity Ratio 0.70 [facility] Work Phone: FRANK (continuity Vmax) 1.82 cm2 [facility] Work Phone: FRANK (continuity VTI) 2.24 cm2 [facility] Phone: FRANK index (continuity Vmax) 1.06 m/s [facility] Work Phone: FRANK index (continuity VTI) 1.30 cm2/m2 [facility] Work Phone: Avg e' pk raj 0.15 m/s [facility] Work Phone: Avg E/e' ratio 4.89 [facility] Work Phone: Body surface area Derived from formula 1.72 m2 [facility] Work Phone: BP EF 62 % [facility] Work Phone: DI (Vmax) 0.70 [facility] Work Phone: DI (VTI) 0.86 m/2 [facility] Work Phone: E wave decelartion time 217.58 msec [facility] Work Phone: e' lateral pk raj 0.1597 m/s [facility] Work Phone: e' lateral pk raj 0.16 [facility] e' septal pk raj 0.1401 m/s [facility]: e' septal pk raj 0.14 m/s [facility] Work Phone: E/A ratio 0.74 [facility] Work Phone: E/e' lateral ratio 4.57 [facility] Work Phone: E/e' septal ratio 5.21 [facility] Work Phone: EF SP 2CH 64 [facility] Work Phone: EF SP 4CH 59 [facility] Work Phone: FS 33 % 28 - 44 % [facility] Work Phone: IVC ostium 1.46 cm [facility] Work Phone: IVS 0.61 cm [facility] Work Phone: LA AREA 2CH 13.72 cm2 [facility] Work Phone: LA area 4CH 9.33 cm2 [facility] Work Phone: LA ESV BP (MOD) 29 mL [facility] Work Phone: LA ESV BP (MOD) index 17 mL/m2 [facility] Work Phone: LA ESV SP 2CH (MOD) 37 mL [facility] Work Phone: LA ESV SP 4CH (MOD) 19 mL [facility] Work Phone: Long Strain -21.7 % [facility] Work Phone: LV EDV BP 71 mL [facility] Work Phone: LV EDV SP 2CH 76 mL [facility] Work Phone: LV EDV SP 4CH 61 mL [facility] Work Phone: LV ESV BP 27 mL [facility] Work Phone: LV ESV SP 2CH 27 mL [facility] Work Phone: LV ESV SP 4CH 25 mL [facility] Work Phone: LV mass 68.53 g [facility] Work Phone: LV Mass Index 39.8 g/m2 [facility] Work Phone: LV RWT 0.30 [facility] Work Phone: LV stroke volume BP (ml) 44 mL [facility] Work Phone: LV stroke volume index BP 25.58 mL/m2 [facility] Work Phone: LVIDD 4.10 cm [facility] Work Phone: LVIDS 2.73 cm [facility] Work Phone: LVOT area 2.60 cm2 [facility] Work Phone: LVOT diameter 1.82 cm [facility] Work Phone: LVOT peak raj 0.88 m/s [facility] Work Phone: LVOT peak VTI 17.19 cm [facility] Work Phone: LVOT stroke volume 45 cm3 [facility] Work Phone: LVOT stroke volume index 25.99 ml/m2 [facility] Work Phone: MV pk A raj 0.98 m/s [facility] Work Phone: MV pk E raj 0.73 m/s [facility] Work Phone: MV stenosis pressure 1/2 time 63.10 ms [facility] Work Phone: MV valve area p 1/2 method 3.49 cm2 [facility] Work Phone: [facility] AV VTI RATIO PRE STRESS 0.86 [facility] Work Phone: [facility]SU ECHO LV BIPLANE SYSTOLIC VOLUME INDEX 15.70 mL/m2 [facility] Work Phone: [facility] ECHO LV BP DIASTOLIC VOLUME INDEX 41.28 mL/m2 [facility] Work Phone: PV peak gradient 4 mmHg [facility] Work Phone: PV PK RAJ 0.97 m/s [facility] Work Phone: PW 0.61 cm [facility] Work Phone: RA vol index 4CH (MOD) 12.79 mL/m2 [facility] Work Phone: Right atrium volume 4 chamber method of disks 22 mL [facility] Work Phone: RV Area diastolic 21.85 cm2 [facility] Work Phone: RV Area systolic 11.51 cm2 [facility] Work Phone: RV basal diam 3.02 cm [facility] Work Phone: RV Fractional area change 47.3 % [facility] Work Phone: RV long diam 7.35 cm [facility] Work Phone: RV Long Strain -28.0 % [facility] Work Phone: RV mid diam 2.68 cm [facility] Work Phone: RV S' 12.55 cm/s [facility] Work Phone: RVOT peak gradient [facility] Work Phone: RVOT peak raj 0.59 m/s [facility] Work Phone: Sinus 2.70 cm [facility] Work Phone: STJ 2.41 cm [facility] Work Phone: Stroke Volume 45 cm/mL [facility] Work Phone: Stroke volume index [facility] Work [facility]: TAPSE 2.03 cm [facility] Work Phone: [facility] Work Phone: Cardiac echo study [...] The left ventricular wall motion is normal. [facility] Radiology Study observation (narrative) [facility] B-TYPE NATRIURETIC PEPTIDE ( BRAIN)on 10-07-2022 Interpretation and review of laboratory results Normal [facility] Natriuretic peptide B (Bld) [Mass/Vol] 4 pg/mL 0 - 100 pg/mL [facility] HIGH SENSITIVITY TROPONIN I - SINGLE ORDERon 10-07-2022 Interpretation and review of laboratory results Normal [facility] Troponin I.cardiac High sensitivity method [Mass/Vol] ng/L NINF - 34 ng/L [facility] MONOon 10-02-2022 Monocytes (Bld) [#/Vol] Negative Normal NEGATIVE [facility] Comment on above: Performed By: #### L IVER, LDH, BMP #### [facility] [address] [address] [address] Esthela Stevens CBC AUTO DIFFon 09-30-2022 BASO # 0.1 103/ul Normal 0.0-0.1 [facility] Comment on above: Performed By: #### L IVER, LDH, BMP #### [facility] [address] [address] [address] Esthela Stevens Basophils/100 WBC (Bld) 0.8 % Normal 0.2-2.0 [facility] Comment on above: Performed By: #### L IVER, LDH, BMP #### [facility] [address] [place] [address] Dr. Esthela Stevens EO # 0.1 103/ul Normal 0.0-0.7 [facility] Comment on above: Performed By: #### L IVER, LDH, BMP #### [facility] [address] [place] [address] Dr. Esthela Stevens Eosinophils/100 WBC (Bld) 1.7 % Normal 0.9-7.0 [facility] Comment on above: Performed By: #### L IVER, LDH, BMP #### [facility] [address] [place] [address] Dr. Esthela Stevens Erythrocyte distribution width (RBC) [Ratio] 13.1 % Normal 11.0-15.0 [facility] Comment on above: Performed By: #### L IVER, LDH, BMP #### [facility] [address] [place] [address] Dr. Esthela Stevens Hematocrit (Bld) [Volume fraction] 38.4 % Normal 36.0-48.0 [facility] Comment on above: Performed By: #### L IVER, LDH, BMP #### [facility] [address] [place] [address] Dr. Esthela Stevens Hemoglobin (Bld) [Mass/Vol] 12.4 g/dL Normal 12.0-16.0 [facility] Comment on above: Performed By: #### L IVER, LDH, BMP #### [facility] [address] [place] [address] Dr. Esthela Stevens IG # 0.02 10e3/ul Normal 0.00-0.03 [facility] Comment on above: Performed By: #### L IVER, LDH, BMP #### [facility] [address] [place] [address] Dr. Esthela Stevens IG % 0.3 % Normal 0.0-0.5 [facility] Comment on above: Performed By: #### L IVER, LDH, BMP #### [facility] [address] [place] [address] Dr. Esthela Stevens LYMPH # 2.2 103/ul Normal 1.2-3.8 [facility] Comment on above: Performed By: #### L IVER, LDH, BMP #### [facility] [address] [place] [address] Dr. Esthela Stevens Lymphocytes/100 WBC (Bld) 32.8 % Normal 20.5-60.0 [facility] Comment on above: Performed By: #### L IVER, LDH, BMP #### [facility] [address] [place] [address] Dr. Esthela Stevens MANUAL DIFF REQ NO Normal [facility] Comment on above: Performed By: #### L IVER, LDH, BMP #### [facility] [address] [place] [address] Dr. Esthela Stevens MCH (RBC) [Entitic mass] 27.1 pg Normal 26.7-34.0 [facility] Comment on above: Performed By: #### L IVER, LDH, BMP #### [facility] [address] [place] [address] Dr. Esthela Stevens MCHC (RBC) [Mass/Vol] 32.3 g/dL Normal 29.9-35.2 [facility] Comment on above: Performed By: #### L IVER, LDH, BMP #### [facility] [address] [place] [address] Dr. Esthela Stevens MCV (RBC) [Entitic vol] 83.8 fL Normal 81.0-99.0 [facility] Comment on above: Performed By: #### L IVER, LDH, BMP #### [facility] [address] [place] [address] Dr. Esthela Stevens MONO # 0.5 103/ul Normal 0.3-0.8 [facility] Comment on above: Performed By: #### L IVER, LDH, BMP #### [facility] [address] [place] [address] Dr. Esthela Stevens Monocytes/100 WBC (Bld) 8.0 % Normal 1.7-12.0 [facility] Comment on above: Performed By: #### L IVER, LDH, BMP #### [facility] [address] [address] [address] Esthela Stevens NEUT # 3.7 103/ul Normal 1.4-6.5 [facility] Comment on above: Performed By: #### L IVER, LDH, BMP #### [facility] [address] [address] [address] Esthela Stevens Neutrophils/100 WBC (Bld) 56.4 % Normal 43.0-75.0 [facility] Comment on above: Performed By: #### L IVER, LDH, BMP #### [facility] [address] [address] [address] Esthela Stevens Platelet mean volume (Bld) [Entitic vol] 9.3 fL Critically low 9.5-13.5 [facility] Comment on above: Performed By: #### L IVER, LDH, BMP #### [facility] [address] [place] [address] Dr. Esthela Stevens PLT 334 103/ul Normal 150-450 [facility] Comment on above: Performed By: #### L IVER, LDH, BMP #### [facility] [address] [place] [address] Dr. Esthela Stevens RBC 4.58 106/ul Normal 4.20-5.40 [facility] Comment on above: Performed By: #### L IVER, LDH, BMP #### [facility] [address] [place] [address] Dr. Esthela Stevens WBC 6.6 103/ul Normal 4.0-11.0 [facility] Comment on above: Performed By: #### L IVER, LDH, BMP #### [facility] [address] [place] [address] Dr. Esthela Stevens LDHon 09-30-2022 LDH 122 U/L Normal 81-234 [facility] Comment on above: Performed By: #### L IVER, LDH, BMP #### [facility] [address] [place] [address] Dr. Esthela Stevens LIVER PROFILEon 09-30-2022 Albumin [Mass/Vol] 4.1 g/dL Normal 3.4-5.0 [facility] Comment on above: Performed By: #### L IVER, LDH, BMP #### [facility] [address] [place] [address] Dr. Esthela Stevens Albumin/Globulin [Mass ratio] 1.2 {ratio} Normal [facility] Comment on above: Performed By: #### L IVER, LDH, BMP #### [facility] [address] [place] [address] Dr. Esthela Stevens ALP [Catalytic activity/Vol] 75 U/L Normal 46-116 [facility] Comment on above: Performed By: #### L IVER, LDH, BMP #### [facility] [address] [place] [address] Dr. Esthela Stevens ALT [Catalytic activity/Vol] 41 U/L Normal 14-59 [facility] Comment on above: Performed By: #### L IVER, LDH, BMP #### [facility] [address] [place] [address] Dr. Esthela Stevens AST [Catalytic activity/Vol] 30 U/L Normal 15-37 [facility] Comment on above: Performed By: #### L IVER, LDH, BMP #### [facility] [address] [place] [address] Dr. Esthela Stevens BILI, CONJUGATED 0.1 mg/dL Normal 0.0-0.2 [facility] Comment on above: Performed By: #### L IVER, LDH, BMP #### [facility] [address] [place] [address] Dr. Esthela Stevens Bilirubin [Mass/Vol] 0.5 mg/dL Normal 0.2-1.0 [facility] Comment on above: Performed By: #### L IVER, LDH, BMP #### [facility] [address] [place] [address] Dr. Esthela Stevens Globulin (S) [Mass/Vol] 3.3 g/dL Normal [facility] Comment on above: Performed By: #### L IVER, LDH, BMP #### [facility] [address] [place] [address] Dr. Esthela Stevens Protein [Mass/Vol] 7.4 g/dL Normal 6.4-8.2 [facility] Comment on above: Performed By: #### L IVER, LDH, BMP #### [facility] [address] [place] [address] Dr. Esthela Stevens PROF CHEM 8 (BAS METB)on Anion gap [Moles/Vol] 9.2 mmol/L Normal [facility] Comment on above: Performed By: #### L IVER, LDH, BMP #### [facility] [address] [address] [address] Esthela Stevens Calcium [Mass/Vol] 9.0 mg/dL Normal 8.5-10.1 [facility] Comment on above: Performed By: #### L IVER, LDH, BMP #### [facility] [address] [place] [address] Dr. Esthela Stevens Chloride [Moles/Vol] 102 mmol/L Normal 98-107 [facility] Comment on above: Performed By: #### L IVER, LDH, BMP #### [facility] [address] [place] [address] Dr. Esthela Stevens CO2 [Moles/Vol] 27.8 mmol/L Normal 21.0-32.0 [facility] Comment on above: Performed By: #### L IVER, LDH, BMP #### [facility] [address] [place] [address] Dr. Esthela Stevens Creatinine [Mass/Vol] 0.63 mg/dL Normal 0.55-1.02 [facility] Comment on above: Performed By: #### L IVER, LDH, BMP #### [facility] [address] [address] [address] Esthela Stevens EGFR-AF NEW ZEALANDER >60 Normal >=60 [facility] Comment on above: Performed By: #### L IVER, LDH, BMP #### [facility] [address] [address] [address] Esthela Stevens EGFR-NON AF [place] ZEALANDER >60 Normal >=60 [facility] Comment on above: Performed By: #### L IVER, LDH, BMP #### [facility] [address] [address] [address] Esthela Stevens Glucose [Mass/Vol] 106 mg/dL Normal 74-106 [facility] Comment on above: Performed By: #### L IVER, LDH, BMP #### [facility] [address] [address] [address] Esthela Stevens Potassium [Moles/Vol] 4.0 mmol/L Normal 3.5-5.1 [facility] Comment on above: Performed By: #### L IVER, LDH, BMP #### [facility] [address] [address] [address] Esthela Stevens Sodium [Moles/Vol] 135 mmol/L Critically low 136-145 [facility] Comment on above: Performed By: #### L IVER, LDH, BMP #### [facility] [address] [place] [address] Dr. Esthela Stevens Urea nitrogen [Mass/Vol] 9.0 mg/dL Normal 7.0-18.0 [facility] Comment on above: Performed By: #### L IVER, LDH, BMP #### [facility] [address] [place] [address] Dr. Esthela Stevens Urea nitrogen/Creatinine [Mass ratio] 14.3 mg/mg Normal [facility] Comment on above: Performed By: #### L IVER, LDH, BMP #### [facility] [address] [place] [address] Dr. Esthela Stevens MG MAMM DIAGNOSTIC 3D EFREN CA Don 09-23-2022 MG MAMM DIAGNOSTIC 3D EFREN CAD Patient: ZAINAB SWIFT Exam Date: 09/23/2022 : 1995 Gender:F Ordering : [facility] Admission #: [id number] Family : Order #: [id number] CLICK HERE TO VIEW EXAM RADIOLOGY REPORT [...] cervical cancer at age 42. LOCATION: [facility] BREAST COMPOSITION: Extremely dense, which lowers the [...] M.D. on 09/23/2022 at 11:31 Normal [facility] US BREAST EFREN LIMITEDon 03-0 US BREAST EFREN LIMITED Patient: ZAINAB SWIFT Exam Date: 09/23/2022 : 1995 Gender:F Ordering : [facility] Admission #: [id number] Family : Order #: [id number] CLICK HERE TO VIEW EXAM RADIOLOGY REPORT [...] cervical cancer at age 42. LOCATION: [facility] BREAST COMPOSITION: Extremely dense, which lowers the [...] M.D. on 09/23/2022 at 11:31 Normal [facility]20 SARS-CoV-2 (COVID-19) RNA JORGE LUIS+probe Ql (Unsp spec) Not detected Normal NOT DETECTED [facility] Comment on above: Result Comment: When diagnostic [...] for this test is supported by the [place] of Health and Human Service's declaration that [...] used). Performed By: #### P REG #### [facility] [address] [place] [address] Dr. Esthela Stevens INFLUENZA A AND B AGon 09-15 INFLUANEGH SEE BELOW Normal [facility] Comment on above: Result Comment: Nega tive for Flu A protein angiten. Infection due to Flu A cannot be ruled out. Flu A angiten in the sample may be below the detection limit of the test. Performed By: #### L IVER, LDH, BMP #### [facility] [address] [place] [address] Dr. Esthela Stevens [facility] SEE BELOW Normal [facility] Comment on above: Result Comment: Nega tive for Flu B protein antigen. Infection due to Flu B cannot be ruled out. Flu B antigen in the sample may be below the detection limit of the test. Performed By: #### L IVER, LDH, BMP #### [facility] [address] [place] [address] Dr. Esthela Stevens INFLUENZA A AG Negative Normal NEGATIVE SEE COMMENT [facility] Comment on above: Performed By: #### L IVER, LDH, BMP #### [facility] [address] [place] [address] Dr. Esthela Stevens INFLUENZA B AG Negative Normal NEGATIVE SEE COMMENT [facility] Comment on above: Performed By: #### L IVER, LDH, BMP #### [facility] [address] [place] [address] Dr. Esthela Stevens HUNTER by IFAon 09-04-2022 Antinuclear Antibodies, IFA Positive Abnormal [facility] Comment on above: Result Comment: Nega tive <1:80 Borderline 1:80 Positive >1:80 Performed By: #### P REG #### [facility] [address] [place] [address] Dr. Esthela Stevens Centriole Pattern Normal [facility] Comment on above: Performed By: #### P REG #### [facility] [address] [place] [address] Dr. Esthela Stevens Centromere Pattern Normal [facility] Comment on above: Performed By: #### P REG #### [facility] [address] [place] [address] Dr. Esthela Stevens Homogeneous Pattern 1:160 Critically high [facility] Comment on above: Result Comment: ICAP nomenclature: AC-1 Performed By: #### P REG #### [facility] [address] [place] [address] Dr. Esthela Stevens Midbody Pattern Normal [facility] Comment on above: Performed By: #### P REG #### [facility] [address] [address] [address] Esthela Stevens Note: Comment Normal [facility] Comment on above: Result Comment: For more [...] titers Nucleosomes, Histones Drug-induced SLE Speckled Sm, TOOL TECHNICIAN, SCL-70, SLE,MCTD,PSS (diffuse form), SS-A/SS-B Sjogrens Nucleolar SCL-70, PM-1/SCL High titers Scleroderma, PM/DM Centromere Centromere PSS (limited form) w/Crest syndrome variable Nuclear Dot [id number] Primary Biliary Cirrhosis Nuclear GP210, Primary Biliary Cirrhosis Membrane italia A,B,C Performed By: #### P REG #### [facility] [address] [place] [address] Dr. Esthela Stevens Nuclear Dot Pattern Normal [facility] Comment on above: Performed By: #### P REG #### [facility] [address] [place] [address] Dr. Esthela Stevens Nuclear Membrane Pattern Normal [facility] Comment on above: Performed By: #### P REG #### [facility] [address] [place] [address] Dr. Esthela Stevens Nucleolar Pattern Normal [facility] Comment on above: Performed By: #### P REG #### [facility] [address] [place] [address] Dr. Esthela Stevens PCNA Pattern Normal [facility] Comment on above: Performed By: #### P REG #### [facility] [address] [place] [address] Dr. Esthela Stevens Speckled Pattern Normal [facility] Comment on above: Performed By: #### P REG #### [facility] [address] [place] [address] Dr. Esthela Stevens Spindle Apparatus Pattern Normal [facility] Comment on above: Performed By: #### P REG #### [facility] [address] [place] [address] Dr. Esthela Stevens ANTISTREPTOLYSIN O AB (ASO)o n 09-01-2022 Antistreptolysin O Ab 58.8 IU/mL Normal 0.0-200.0 [facility] Comment on above: Performed By: #### L IVER, LDH, BMP #### [facility] [address] [place] [address] Dr. Esthela Stevens INSULINon 09-01-2022 Insulin 12.2 uIU/mL Normal 2.6-24.9 [facility] Comment on above: Performed By: #### I NSULIN #### [facility] [address] [place] [address] Dr. Esthela Stevens RHEUMATOID FACTORon 09-01-19 RA Latex Turbid. <10.0 Normal <14.0 [facility] Comment on above: Performed By: #### L IVER, LDH, BMP #### [facility] [address] [place] [address] Dr. Esthela Stevens CBC AUTO DIFFon 08-31-2022 BASO # 0.0 103/ul Normal 0.0-0.1 [facility] Comment on above: Performed By: #### P REG #### [facility] [address] [place] [address] Dr. Esthela Stevens Basophils/100 WBC (Bld) 0.6 % Normal 0.2-2.0 [facility] Comment on above: Performed By: #### P REG #### [facility] [address] [place] [address] Dr. Esthela Stevens EO # 0.1 103/ul Normal 0.0-0.7 [facility] Comment on above: Performed By: #### P REG #### [facility] [address] [place] [address] Dr. Esthela Stevens Eosinophils/100 WBC (Bld) 1.5 % Normal 0.9-7.0 [facility] Comment on above: Performed By: #### P REG #### [facility] [address] [place] [address] Dr. Esthela Stevens Erythrocyte distribution width (RBC) [Ratio] 12.7 % Normal 11.0-15.0 [facility] Comment on above: Performed By: #### P REG #### [facility] [address] [place] [address] Dr. Esthela Stevens Hematocrit (Bld) [Volume fraction] 38.4 % Normal 36.0-48.0 [facility] Comment on above: Performed By: #### P REG #### [facility] [address] [place] [address] Dr. Esthela Stevens Hemoglobin (Bld) [Mass/Vol] 12.7 g/dL Normal 12.0-16.0 [facility] Comment on above: Performed By: #### P REG #### [facility] [address] [place] [address] Dr. Esthela Stevens IG # 0.02 10e3/ul Normal 0.00-0.03 [facility] Comment on above: Performed By: #### P REG #### [facility] [address] [place] [address] Dr. Esthela Stevens IG % 0.3 % Normal 0.0-0.5 [facility] Comment on above: Performed By: #### P REG #### [facility] [address] [place] [address] Dr. Esthela Stevens LYMPH # 2.0 103/ul Normal 1.2-3.8 [facility] Comment on above: Performed By: #### P REG #### [facility] [address] [place] [address] Dr. Esthela Stevens Lymphocytes/100 WBC (Bld) 31.2 % Normal 20.5-60.0 [facility] Comment on above: Performed By: #### P REG #### [facility] [address] [place] [address] Dr. Esthela Stevens MANUAL DIFF REQ NO Normal [facility] Comment on above: Performed By: #### P REG #### [facility] [address] [place] [address] Dr. Esthela Stevens MCH (RBC) [Entitic mass] 27.1 pg Normal 26.7-34.0 [facility] Comment on above: Performed By: #### P REG #### [facility] [address] [address] [address] Esthela Stevens MCHC (RBC) [Mass/Vol] 33.1 g/dL Normal 29.9-35.2 [facility] Comment on above: Performed By: #### P REG #### [facility] [address] [place] [address] Dr. Esthela Stevens MCV (RBC) [Entitic vol] 82.1 fL Normal 81.0-99.0 [facility] Comment on above: Performed By: #### P REG #### [facility] [address] [place] [address] Dr. Esthela Stevens MONO # 0.4 103/ul Normal 0.3-0.8 [facility] Comment on above: Performed By: #### P REG #### [facility] [address] [place] [address] Dr. Esthela Stevens Monocytes/100 WBC (Bld) 6.4 % Normal 1.7-12.0 [facility] Comment on above: Performed By: #### P REG #### [facility] [address] [place] [address] Dr. Esthela Stevens NEUT # 3.9 103/ul Normal 1.4-6.5 [facility] Comment on above: Performed By: #### P REG #### [facility] [address] [place] [address] Dr. Esthela Stevens Neutrophils/100 WBC (Bld) 60.0 % Normal 43.0-75.0 [facility] Comment on above: Performed By: #### P REG #### [facility] [address] [place] [address] Dr. Esthela Stevens Platelet mean volume (Bld) [Entitic vol] 9.2 fL Critically low 9.5-13.5 [facility] Comment on above: Performed By: #### P REG #### [facility] [address] [place] [address] Dr. Esthela Stevens PLT 390 103/ul Normal 150-450 [facility] Comment on above: Performed By: #### P REG #### [facility] [address] [place] [address] Dr. Esthela Stevens RBC 4.68 106/ul Normal 4.20-5.40 [facility] Comment on above: Performed By: #### P REG #### [facility] [address] [place] [address] Dr. Esthela Stevens WBC 6.5 103/ul Normal 4.0-11.0 [facility] Comment on above: Performed By: #### P REG #### [facility] [address] [place] [address] Dr. Esthela Stevens CRPon 08-31-2022 CRP [Mass/Vol] mg/L Normal <=1.0 [facility] Comment on above: Performed By: #### L IVER, LDH, BMP #### [facility] [address] [place] [address] Dr. Esthela Stevens FREE THYROXINE INDEX T7on FTI 2.94 Normal 1.30-4.50 [facility] Comment on above: Performed By: #### L IVER, LDH, BMP #### [facility] [address] [place] [address] Dr. Esthela Stevens T3U 33.0 % Normal 30.0-39.0 [facility] Comment on above: Performed By: #### L IVER, LDH, BMP #### [facility] [address] [place] [address] Dr. Esthela Stevens T4 [Mass/Vol] 8.90 ug/dL Normal 4.80-13.90 [facility] Comment on above: Performed By: #### L IVER, LDH, BMP #### [facility] [address] [place] [address] Dr. Esthela Stevens GLYCOHEMOGLOBIN A1Con 2022 ADA RECOMMENDATION SEE BELOW Normal [facility] Comment on above: Result Comment: ADA RECOMMENDED LIMIT 4.0 - 6.0 ADA THERAPEUTIC TARGET < 7.0 ACTION SUGGESTED > 7.0 Performed By: #### L IVER, LDH, BMP #### [facility] [address] [address] [address] Esthela Stevens Glucose [Mass/Vol] 111 mg/dL Normal [facility] Comment on above: Performed By: #### L IVER, LDH, BMP #### [facility] [address] [address] [address] Esthela Stevens HbA1c (Bld) [Mass fraction] 5.5 % Normal 4.5-6.2 [facility] Comment on above: Performed By: #### L IVER, LDH, BMP #### [facility] [address] [address] [address] Esthela Stevens IRONon 08-31-2022 Iron [Mass/Vol] 34.0 ug/dL Critically low 50.0-170.0 [facility] Comment on above: Performed By: #### L IVER, LDH, BMP #### [facility] [address] [place] [address] Dr. Esthela Stevens LIPID PROFILEon 08-31-2022 CHOL-HDL RATIO NORM SEE BELOW Normal [facility] Comment on above: Result Comment: 3.3 - 4.4 LOW RISK 4.4 - 7.1 AVERAGE RISK 7.1 - 11.0 MODERATE RISK >11.0 HIGH RISK Performed By: #### L IVER, LDH, BMP #### [facility] [address] [place] [address] Dr. Esthela Stevens Cholesterol [Mass/Vol] 168 mg/dL Normal <=200 [facility] Comment on above: Performed By: #### L IVER, LDH, BMP #### [facility] [address] [address] [address] Esthela Stevens Cholesterol in HDL [Mass/Vol] 51 mg/dL Normal 40-60 [facility] Comment on above: Performed By: #### L IVER, LDH, BMP #### [facility] [address] [address] [address] Esthela Stevens Cholesterol in LDL [Mass/Vol] 91.8 mg/dL Normal [facility] Comment on above: Performed By: #### L IVER, LDH, BMP #### [facility] [address] [address] [address] Esthela Stevens Cholesterol.total/C holesterol in HDL [Mass ratio] 3.3 {ratio} Normal [facility] Comment on above: Performed By: #### L IVER, LDH, BMP #### [facility] [address] [address] [address] Esthela Stevens HDL NORMAL > or = 60 mg/dl - LO W CARDIOVASCULAR RISK <40 mg/dl - HIGH CARDIOVASCULAR RISK Normal [facility] Comment on above: Performed By: #### L IVER, LDH, BMP #### [facility] [address] [address] [address] Esthela Stevens LDL CALC NORMAL SEE BELOW Normal [facility] Comment on above: Result Comment: <100 mg/dl OPTIMAL 100 - 129 mg/dl NEAR OR ABOVE OPTIMAL 130 - 159 mg/dl BORDERLINE HIGH 160 - 189 mg/dl HIGH >190 mg/dl VERY HIGH Performed By: #### L IVER, LDH, BMP #### [facility] [address] [address] [address] Esthela Stevens Triglyceride [Mass/Vol] 126 mg/dL Normal <=150 [facility] Comment on above: Performed By: #### L IVER, LDH, BMP #### [facility] [address] [place] [address] Dr. Esthela Stevens VLDL CALC 25.2 mg/dL Normal [facility] Comment on above: Performed By: #### L IVER, LDH, BMP #### [facility] [address] [address] [address] Esthela Stevens PROF 14(COMP METB)on 023 Albumin [Mass/Vol] 4.2 g/dL Normal 3.4-5.0 [facility] Comment on above: Performed By: #### L IVER, LDH, BMP #### [facility] [address] [address] [address] Esthela Stevens Albumin/Globulin [Mass ratio] 1.1 {ratio} Normal [facility] Comment on above: Performed By: #### L IVER, LDH, BMP #### [facility] [address] [address] [address] Esthela Stevens ALP [Catalytic activity/Vol] 74 U/L Normal 46-116 [facility] Comment on above: Performed By: #### L IVER, LDH, BMP #### [facility] [address] [address] [address] Esthela Stevens ALT [Catalytic activity/Vol] 57 U/L Normal 14-59 [facility] Comment on above: Performed By: #### L IVER, LDH, BMP #### [facility] [address] [address] [address] Esthela Stevens Anion gap [Moles/Vol] 15.0 mmol/L Normal [facility] Comment on above: Performed By: #### L IVER, LDH, BMP #### [facility] [address] [place] [address] Dr. Esthela Stevens AST [Catalytic activity/Vol] 25 U/L Normal 15-37 [facility] Comment on above: Performed By: #### L IVER, LDH, BMP #### [facility] [address] [address] [address] Esthela Stevens Bilirubin [Mass/Vol] 0.4 mg/dL Normal 0.2-1.0 [facility] Comment on above: Performed By: #### L IVER, LDH, BMP #### [facility] [address] [address] [address] Esthela Stevens Calcium [Mass/Vol] 9.4 mg/dL Normal 8.5-10.1 [facility] Comment on above: Performed By: #### L IVER, LDH, BMP #### [facility] [address] [address] [address] Esthela Stevens Chloride [Moles/Vol] 102 mmol/L Normal 98-107 [facility] Comment on above: Performed By: #### L IVER, LDH, BMP #### [facility] [address] [address] [address] Esthela Stevens CO2 [Moles/Vol] 27.0 mmol/L Normal 21.0-32.0 [facility] Comment on above: Performed By: #### L IVER, LDH, BMP #### [facility] [address] [address] [address] Esthela Stevens Creatinine [Mass/Vol] 0.61 mg/dL Normal 0.55-1.02 [facility] Comment on above: Performed By: #### L IVER, LDH, BMP #### [facility] [address] [address] [address] Esthela Stevens EGFR-AF NEW ZEALANDER >60 Normal >=60 [facility] Comment on above: Performed By: #### L IVER, LDH, BMP #### [facility] [address] [address] [address] Esthela Stevens EGFR-NON AF NEW ZEALANDER >60 Normal >=60 [facility] Comment on above: Performed By: #### L IVER, LDH, BMP #### [facility] [address] [address] [address] Esthela Stevens Globulin (S) [Mass/Vol] 3.7 g/dL Normal [facility] Comment on above: Performed By: #### L IVER, LDH, BMP #### [facility] [address] [address] [address] Esthela Stevens Glucose [Mass/Vol] 88 mg/dL Normal 74-106 [facility] Comment on above: Performed By: #### L IVER, LDH, BMP #### [facility] [address] [address] [address] Esthela Stevens Potassium [Moles/Vol] 4.0 mmol/L Normal 3.5-5.1 [facility] Comment on above: Performed By: #### L IVER, LDH, BMP #### [facility] [address] [address] [address] Esthela Stevens Protein [Mass/Vol] 7.9 g/dL Normal 6.4-8.2 [facility] Comment on above: Performed By: #### L IVER, LDH, BMP #### [facility] [address] [address] [address] Esthela Stevens Sodium [Moles/Vol] 140 mmol/L Normal 136-145 [facility] Comment on above: Performed By: #### L IVER, LDH, BMP #### [facility] [address] [place] [address] Dr. Esthela Stevens Urea nitrogen [Mass/Vol] 4.0 mg/dL Critically low 7.0-18.0 [facility] Comment on above: Performed By: #### L IVER, LDH, BMP #### [facility] [address] [place] [address] Dr. Esthela Stevens Urea nitrogen/Creatinine [Mass ratio] 6.6 mg/mg Normal [facility] Comment on above: Performed By: #### L IVER, LDH, BMP #### [facility] [address] [place] [address] Dr. Esthela Stevens TSHon 08-31-2022 TSH 1.348 uIU/mL Normal 0.358-3.740 [facility] Comment on above: Performed By: #### L IVER, LDH, BMP #### [facility] [address] [place] [address] Dr. Esthela Stevens URIC ACID SERUMon 08-31-2022 Urate [Mass/Vol] 4.4 mg/dL Normal 2.6-6.0 [facility] Comment on above: Performed By: #### L IVER, LDH, BMP #### [facility] [address] [place] [address] Dr. Esthela Stevens VITAMIN D 25 OHon 08-31-2022 VIT D 25-OH 18.0 ng/mL Normal [facility] Comment on above: Performed By: #### L IVER, LDH, BMP #### [facility] [address] [place] [address] Dr. Esthela Stevens VIT D RANGES SEE BELOW Normal [facility] Comment on above: Result Comment: <20 ng/mL Vit D deficient 20 - <30 ng/mL Vit D insufficient 30 - 100 ng/mL Vit D sufficient >100 ng/mL Potential Toxicity Performed By: #### L IVER, LDH, BMP #### [facility] [address] [place] [address] Dr. Esthela Stevens LIVER PROFILEon 08-24-2022 Albumin [Mass/Vol] 3.9 g/dL Normal 3.4-5.0 [facility] Comment on above: Performed By: #### L IVER, LDH, BMP #### [facility] [address] [address] [address] Esthela Stevens Albumin/Globulin [Mass ratio] 1.0 {ratio} Normal [facility] Comment on above: Performed By: #### L IVER, LDH, BMP #### [facility] [address] [address] [address] Esthela Stevens ALP [Catalytic activity/Vol] 70 U/L Normal 46-116 [facility] Comment on above: Performed By: #### L IVER, LDH, BMP #### [facility] [address] [place] [address] Dr. Esthela Stevens ALT [Catalytic activity/Vol] 44 U/L Normal 14-59 [facility] Comment on above: Performed By: #### L IVER, LDH, BMP #### [facility] [address] [address] [address] Esthela Stevens AST [Catalytic activity/Vol] 22 U/L Normal 15-37 [facility] Comment on above: Performed By: #### L IVER, LDH, BMP #### [facility] [address] [place] [address] Dr. Esthela Stevens BILI, CONJUGATED 0.1 mg/dL Normal 0.0-0.2 [facility] Comment on above: Performed By: #### L IVER, LDH, BMP #### [facility] [address] [address] [address] Esthela Stevens Bilirubin [Mass/Vol] 0.3 mg/dL Normal 0.2-1.0 [facility] Comment on above: Performed By: #### L IVER, LDH, BMP #### [facility] [address] [address] [address] Esthela Stevens Globulin (S) [Mass/Vol] 3.9 g/dL Normal [facility] Comment on above: Performed By: #### L IVER, LDH, BMP #### [facility] [address] [place], [place] [address] Dr. Esthela Stevens Protein [Mass/Vol] 7.8 g/dL Normal 6.4-8.2 [facility] Comment on above: Performed By: #### L IVER, LDH, BMP #### [facility] [address] [place], [place] [address] Dr. Esthela Stevens CREAT/GFRon 08-19-2022 Creatinine [Mass/Vol] 0.85 mg/dL 0.50 - 1.20 mg/dL [facility] GFR/1.73 sq M.predicted CKD-EPI (S/P/Bld) [Vol rate/Area] - PINF [facility] Comment on above: Reported eGFR is bas ed on the CKD-EPI 2020 equation using creatinine, age, and sex. Interpretation and review of laboratory results Normal [facility] Test performed at address of the patient encounter. [facility] PT Skull base to mid-thighon 08-19-2022 [...] the patient was positioned on the Siemens Alegríagraph mCT TOF< PET/CT-64, Tera imaging unit. 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 [facility] Radiology Study observation (narrative) [facility] PT Skull base to mid-thighOr dered By: Hawa Pichardo on 08-19-2022 [facility] Work Phone: CBC AUTO DIFFon 08-12-2022 BASO # 0.1 103/ul Normal 0.0-0.1 [facility] Comment on above: Performed By: #### L IVER, LDH, BMP #### [facility] [address] [address] [address] Esthela Stevens Basophils/100 WBC (Bld) 1.0 % Normal 0.2-2.0 [facility] Comment on above: Performed By: #### L IVER, LDH, BMP #### [facility] [address] [place] [address] Dr. Esthela Stevens EO # 0.1 103/ul Normal 0.0-0.7 [facility] Comment on above: Performed By: #### L IVER, LDH, BMP #### [facility] [address] [place] [address] Dr. Esthela Stevens Eosinophils/100 WBC (Bld) 1.6 % Normal 0.9-7.0 [facility] Comment on above: Performed By: #### L IVER, LDH, BMP #### [facility] [address] [place] [address] Dr. Esthela Stevens Erythrocyte distribution width (RBC) [Ratio] 12.5 % Normal 11.0-15.0 [facility] Comment on above: Performed By: #### L IVER, LDH, BMP #### [facility] [address] [place] [address] Dr. Esthela Stevens Hematocrit (Bld) [Volume fraction] 40.1 % Normal 36.0-48.0 [facility] Comment on above: Performed By: #### L IVER, LDH, BMP #### [facility] [address] [place] [address] Dr. Esthela Stevens Hemoglobin (Bld) [Mass/Vol] 12.3 g/dL Normal 12.0-16.0 [facility] Comment on above: Performed By: #### L IVER, LDH, BMP #### [facility] [address] [place] [address] Dr. Esthela Stevens IG # 0.01 10e3/ul Normal 0.00-0.03 [facility] Comment on above: Performed By: #### L IVER, LDH, BMP #### [facility] [address] [place] [address] Dr. Esthela Stevens IG % 0.2 % Normal 0.0-0.5 [facility] Comment on above: Performed By: #### L IVER, LDH, BMP #### [facility] [address] [address] [address] Esthela Stevens LYMPH # 1.8 103/ul Normal 1.2-3.8 [facility] Comment on above: Performed By: #### L IVER, LDH, BMP #### [facility] [address] [place] [address] Dr. Esthela Stevens Lymphocytes/100 WBC (Bld) 28.0 % Normal 20.5-60.0 [facility] Comment on above: Performed By: #### L IVER, LDH, BMP #### [facility] [address] [place] [address] Dr. Esthela Stevens MANUAL DIFF REQ NO Normal [facility] Comment on above: Performed By: #### L IVER, LDH, BMP #### [facility] [address] [place] [address] Dr. Esthela Stevens MCH (RBC) [Entitic mass] 26.8 pg Normal 26.7-34.0 [facility] Comment on above: Performed By: #### L IVER, LDH, BMP #### [facility] [address] [place] [address] Dr. Esthela Stevens MCHC (RBC) [Mass/Vol] 30.7 g/dL Normal 29.9-35.2 [facility] Comment on above: Performed By: #### L IVER, LDH, BMP #### [facility] [address] [place] [address] Dr. Esthela Stevens MCV (RBC) [Entitic vol] 87.4 fL Normal 81.0-99.0 [facility] Comment on above: Performed By: #### L IVER, LDH, BMP #### [facility] [address] [place] [address] Dr. Esthela Stevens MONO # 0.6 103/ul Normal 0.3-0.8 [facility] Comment on above: Performed By: #### L IVER, LDH, BMP #### [facility] [address] [place] [address] Dr. Esthela Stevens Monocytes/100 WBC (Bld) 9.4 % Normal 1.7-12.0 [facility] Comment on above: Performed By: #### L IVER, LDH, BMP #### [facility] [address] [place] [address] Dr. Esthela Stevens NEUT # 3.8 103/ul Normal 1.4-6.5 [facility] Comment on above: Performed By: #### L IVER, LDH, BMP #### [facility] [address] [place] [address] Dr. Esthela Stevens Neutrophils/100 WBC (Bld) 59.8 % Normal 43.0-75.0 [facility] Comment on above: Performed By: #### L IVER, LDH, BMP #### [facility] [address] [place] [address] Dr. Esthela Stevens Platelet mean volume (Bld) [Entitic vol] 9.6 fL Normal 9.5-13.5 [facility] Comment on above: Performed By: #### L IVER, LDH, BMP #### [facility] [address] [place] [address] Dr. Esthela Stevens PLT 341 103/ul Normal 150-450 [facility] Comment on above: Performed By: #### L IVER, LDH, BMP #### [facility] [address] [place] [address] Dr. Esthela Stevens RBC 4.59 106/ul Normal 4.20-5.40 [facility] Comment on above: Performed By: #### L IVER, LDH, BMP #### [facility] [address] [place] [address] Dr. Esthela Stevens WBC 6.3 103/ul Normal 4.0-11.0 [facility] Comment on above: Performed By: #### L IVER, LDH, BMP #### [facility] [address] [place] [address] ABD/PELV W CONon [...] TIMMY SHAY Date: 2022-08-12 17:04 Normal [facility] CULTURE URINEon 08-12-2022 CULTURE URINE Culture Observations : MODERATE GROWTH OF MIXED GENITAL SUNITA. NO POTENTIAL PATHOGENS SEEN. Normal [facility] Comment on above: Performed By: #### L SONU GARDNER, BMP #### [facility] [address] [place] [address] Dr. Esthela Stevens ER URINE PROFILEon 3 Bilirubin Ql (U) Negative Normal NEGATIVE [facility] Comment on above: Performed By: #### P REG #### [facility] [address] [place] [address] Dr. Esthela Stevens Clarity (U) CLEAR Normal CLEAR [facility] Comment on above: Performed By: #### P REG #### [facility] [address] [place] [address] Dr. Esthela Stevens Color (U) LT. YELLOW Normal YELLOW [facility] Comment on above: Performed By: #### P REG #### [facility] [address] [place] [address] Dr. Esthela ARGUELLES A micrscopic examination will be performed if indicated. Normal [facility] Comment on above: Performed By: #### P REG #### [facility] [address] [place] [address] Dr. Esthela Stevens Glucose Ql (U) Negative Normal NEGATIVE [facility] Comment on above: Performed By: #### P REG #### [facility] [address] [place] [address] Dr. Esthela Stevens Hemoglobin Ql (U) Negative Normal NEGATIVE [facility] Comment on above: Performed By: #### P REG #### [facility] [address] [place] [address] Dr. Esthela Stevens Ketones Ql (U) Negative Normal NEGATIVE [facility] Comment on above: Performed By: #### P REG #### [facility] [address] [place] [address] Dr. Esthela Stevens LEUKOCYTES SMALL Abnormal NEGATIVE [facility] Comment on above: Performed By: #### P REG #### [facility] [address] [place] [address] Dr. Esthela Stevens Nitrite Ql (U) Negative Normal NEGATIVE [facility] Comment on above: Performed By: #### P REG #### [facility] [address] [place] [address] Dr. Esthela Stevens pH (U) 7.0 [pH] Normal 5-9 [facility] Comment on above: Performed By: #### P REG #### [facility] [address] [place] [address] Dr. Esthela Stevens SPEC GRAVITY 1.020 Normal 1.005-<=1.025 [facility] Comment on above: Performed By: #### P REG #### [facility] [address] [place] [address] Dr. Esthela Stevens UA PROTEIN Negative Normal NEGATIVE/ TRACE [facility] Comment on above: Performed By: #### P REG #### [facility] [address] [place] [address] Dr. Esthela Stevens UR MICRO IND INDICATED Normal [facility] Comment on above: Performed By: #### P REG #### [facility] [address] [place] [address] Dr. Esthela Stevens Urobilinogen Qn (U) 0.2 {Emeka'U}/dL Normal 0.2 - 1. 0 [facility] Comment on above: Performed By: #### P REG #### [facility] [address] [place] [address] Dr. Esthela Stevens LIPASEon 08-12-2022 Lipase [Catalytic activity/Vol] 75.0 U/L Normal 73.0-393.0 [facility] Comment on above: Performed By: #### P REG #### [facility] [address] [place] [address] Dr. Esthela Stevens URon 08-12-2022 , QUAL Negative Normal NEGATIVE [facility] Comment on above: Performed By: #### P REG #### [facility] [address] [place] [address] Dr. Esthela Stevens PROF 14(COMP METB)on 023 Albumin [Mass/Vol] 4.0 g/dL Normal 3.4-5.0 [facility] Comment on above: Performed By: #### P REG #### [facility] [address] [place] [address] Dr. Esthela Stevens Albumin/Globulin [Mass ratio] 1.1 {ratio} Normal [facility] Comment on above: Performed By: #### P REG #### [facility] [address] [address] [address] Esthela Stevens ALP [Catalytic activity/Vol] 73 U/L Normal 46-116 [facility] Comment on above: Performed By: #### P REG #### [facility] [address] [address] [address] Esthela Stevens ALT [Catalytic activity/Vol] 82 U/L Critically high 14-59 [facility] Comment on above: Performed By: #### P REG #### [facility] [address] [address] [address] Esthela Stevens Anion gap [Moles/Vol] 12.0 mmol/L Normal [facility] Comment on above: Performed By: #### P REG #### [facility] [address] [place] [address] Dr. Esthela Stevens AST [Catalytic activity/Vol] 33 U/L Normal 15-37 [facility] Comment on above: Performed By: #### P REG #### [facility] [address] [place] [address] Dr. Esthela Stevens Bilirubin [Mass/Vol] 0.2 mg/dL Normal 0.2-1.0 [facility] Comment on above: Performed By: #### P REG #### [facility] [address] [address] [address] Esthela Stevens Calcium [Mass/Vol] 9.4 mg/dL Normal 8.5-10.1 [facility] Comment on above: Performed By: #### P REG #### [facility] [address] [address] [address] Esthela Stevens Chloride [Moles/Vol] 102 mmol/L Normal 98-107 [facility] Comment on above: Performed By: #### P REG #### [facility] [address] [address] [address] Esthela Stevens CO2 [Moles/Vol] 27.8 mmol/L Normal 21.0-32.0 [facility] Comment on above: Performed By: #### P REG #### [facility] [address] [address] [address] Esthela Stevens Creatinine [Mass/Vol] 0.69 mg/dL Normal 0.55-1.02 [facility] Comment on above: Performed By: #### P REG #### [facility] [address] [address] [address] Esthela Stevens EGFR-AF NEW ZEALANDER >60 Normal >=60 [facility] Comment on above: Performed By: #### P REG #### [facility] [address] [address] [address] Esthela Stevens EGFR-NON AF NEW ZEALANDER >60 Normal >=60 [facility] Comment on above: Performed By: #### P REG #### [facility] [address] [place] [address] Dr. Esthela Stevens Globulin (S) [Mass/Vol] 3.5 g/dL Normal [facility] Comment on above: Performed By: #### P REG #### [facility] [address] [place] [address] Dr. Esthela Stevens Glucose [Mass/Vol] 109 mg/dL Critically high 74-106 [facility] Comment on above: Performed By: #### P REG #### [facility] [address] [place] [address] Dr. Esthela Stevens Potassium [Moles/Vol] 3.8 mmol/L Normal 3.5-5.1 [facility] Comment on above: Performed By: #### P REG #### [facility] [address] [place] [address] Dr. Esthela Stevens Protein [Mass/Vol] 7.5 g/dL Normal 6.4-8.2 [facility] Comment on above: Performed By: #### P REG #### [facility] [address] [place] [address] Dr. Esthela Stevens Sodium [Moles/Vol] 138 mmol/L Normal 136-145 [facility] Comment on above: Performed By: #### P REG #### [facility] [address] [place] [address] Dr. Esthela Stevens Urea nitrogen [Mass/Vol] 6.0 mg/dL Critically low 7.0-18.0 [facility] Comment on above: Performed By: #### P REG #### [facility] [address] [place] [address] Dr. Esthela Stevens Urea nitrogen/Creatinine [Mass ratio] 8.7 mg/mg Normal [facility] Comment on above: Performed By: #### P REG #### [facility] [address] [place] [address] Dr. Esthela Stevens URINE MICROSCOPIC ONLYon BACTERIA SMALL Abnormal NONE SEEN [facility] Comment on above: Performed By: #### P REG #### [facility] [address] [place] [address] Dr. Esthela Stevens Bacteria identified Cx Nom (U) INDICATED Normal [facility] Comment on above: Performed By: #### P REG #### [facility] [address] [place] [address] Dr. Esthela Stevens CAST NONE SEEN Normal NONE SEEN [facility] Comment on above: Performed By: #### P REG #### [facility] [address] [place] [address] Dr. Esthela Stevens Crystals LM Nom (Urine sed) NONE SEEN Normal NONE SEEN [facility] Comment on above: Performed By: #### P REG #### [facility] [address] [place] [address] Dr. Esthela Stevens Epithelial cells LM Ql (Urine sed) MODERATE Abnormal NONE SEEN /RARE [facility] Comment on above: Performed By: #### P REG #### [facility] [address] [place] [address] Dr. Esthela Stevens MUCOUS NONE SEEN Normal NONE SEEN [facility] Comment on above: Performed By: #### P REG #### [facility] [address] [place] [address] Dr. Esthela Stevens RBC NONE SEEN Abnormal 0-2 [facility] Comment on above: Performed By: #### P REG #### [facility] [address] [place] [address] Dr. Esthela Stevens WBC 2-5 Abnormal NONE SEEN [facility] Comment on above: Performed By: #### P REG #### [facility] [address] [place] [address] Dr. Esthela Stevens PAP ACOG PANEL 2: 21 to 31on 08-11-2022 . . Normal [facility] Comment on above: Performed By: #### [id number] #### [facility] [address] [place] [address] Dr. Esthela Stevens Age Gdln ACOG Testing - Normal [facility] Comment on above: Performed By: #### [id number] #### [facility] [address] [address] [address] Esthela Stevens DIAGNOSIS: Comment Abnormal [facility] Comment on above: Result Comment: EPIT HELIAL CELL ABNORMALITY. ATYPICAL SQUAMOUS CELLS OF UNDETERMINED SIGNIFICANCE (ASC-US). Performed By: #### [id number] #### [facility] [address] [place] [address] Dr. Esthela Stevens Electronically signed by: Comment Normal [facility] Comment on above: Result Comment: Zoe Moncada MD, Pathologist Performed By: #### [id number] #### [facility] [address] [place] [address] Dr. Esthela Stevens HPV Aptima Negative Normal Negative [facility] Comment on above: Result Comment: This nucleic acid amplification test detects fourteen high-risk HPV types (16,18,31,33,35,39,45,51,52,56,58,59,66,68) without differentiation. Performed By: #### [id number] #### [facility] [address] [place] [address] Dr. Esthela Stevens Methodology: Comment Normal [facility] Comment on above: Result Comment: This liquid based ThinPrep(R) pap test was screened with the use of an image guided system. Performed By: #### [id number] #### [facility] [address] [place] [address] Dr. Esthela Stevens Note: Comment Normal [facility] Comment on above: Result Comment: The Pap smear is a screening test designed to aid in the detection of premalignant and malignant conditions of the uterine cervix. It is not a diagnostic procedure and should not be used as the sole means of detecting cervical cancer. Both false-positive and false-negative reports do occur. . Performed By: #### [id number] #### [facility] [address] [place] [address] Dr. Esthela Stevens Pathologist Provided ICD10 Comment [facility] Comment on above: Result Comment: [id number] Performed By: #### [id number] #### [facility] [address] [place] [address] Dr. Esthela Stevens Performed by: Comment Normal [facility] Comment on above: Result Comment: Nevin Ardon Keyboard Teacher (ASCP) Performed By: #### [id number] #### [facility] [address] [place] [address] Dr. Esthela Stevens Reflex Criteria: Comment Normal [facility] Comment on above: Result Comment: See below for HPV testing results. . Performed By: #### [id number] #### [facility] [address] [place] [address] Dr. Esthela Stevens Specimen adequacy: Comment Normal [facility] Comment on above: Result Comment: Sati sfactory for evaluation. Endocervical and/or squamous metaplastic cells (endocervical component) are present. Performed By: #### [id number] #### [facility] [address] [place] [address] Dr. Esthela Stevens GI PANEL (PCR)on 06-03-2022 Adenovirus F 40/41 Not detected Normal NOT DETECTED [facility] Comment on above: Performed By: #### P REG #### [facility] [address] [place] [address] Dr. Esthela Stevens Astrovirus Not detected Normal NOT DETECTED [facility] Comment on above: Performed By: #### P REG #### [facility] [address] [place] [address] Dr. Esthela Stevens C. Diff toxin A/B Detected Critically abnormal NOT DETECTED [facility] Comment on above: Performed By: #### P REG #### [facility] [address] [address] [address] Esthela Stevens Campylobacter Not detected Normal NOT DETECTED [facility] Comment on above: Performed By: #### P REG #### [facility] [address] [address] [address] Esthela Stevens Cryptosporidium Not detected Normal NOT DETECTED [facility] Comment on above: Performed By: #### P REG #### [facility] [address] [address] [address] Esthela Stevens Cyclos. Cayetanensis Not detected Normal NOT DETECTED [facility] Comment on above: Performed By: #### P REG #### [facility] [address] [place] [address] Dr. Esthela Stevens E. Coli O157 Not Applicable Normal Not Applicable [facility] Comment on above: Performed By: #### P REG #### [facility] [address] [place] [address] Dr. Esthela Stevens E. histolytica Not detected Normal NOT DETECTED [facility] Comment on above: Performed By: #### P REG #### [facility] [address] [place] [address] Dr. Esthela Stevens EAEC Not detected Normal NOT DETECTED [facility] Comment on above: Performed By: #### P REG #### [facility] [address] [place] [address] Dr. Esthela Stevens EIEC Not detected Normal NOT DETECTED [facility] Comment on above: Performed By: #### P REG #### [facility] [address] [place] [address] Dr. Esthela Stevens EPEC Not detected Normal NOT DETECTED [facility] Comment on above: Performed By: #### P REG #### [facility] [address] [place] [address] Dr. Esthela Stevens ETEC Not detected Normal NOT DETECTED [facility] Comment on above: Performed By: #### P REG #### [facility] [address] [place] [address] Dr. Esthela Stevens G. Lamblia Not detected Normal NOT DETECTED [facility] Comment on above: Performed By: #### P REG #### [facility] [address] [address] [address] Esthela KELLY CONTROLS PASSED Normal [facility] Comment on above: Performed By: #### P REG #### [facility] [address] [address] [address] Esthela MERCADO JON HEADER GI PANEL BACTERIA Normal T [facility] Comment on above: Performed By: #### P REG #### [facility] [address] [address] [address] Esthela LARA ECOLI GI PANEL DIARRHEAGENIC E.COLI / SHIGELLA Normal [facility] Comment on above: Performed By: #### P REG #### [facility] [address] [address] [address] Esthela LARA INFO SEE BELOW Normal [facility] Comment on above: Result Comment: EAEC - Enteroaggregative E. Coli EPEC- Enteropathogenic E. Coli ETEC- Enterotoxigenic E. Coli lt/st STEC- Shigella-like toxin-producing E. Coli stx1/stx2 EIEC- Shigella/Enteroinvasive E. Coli Performed By: #### P REG #### [facility] [address] [address] [address] Esthela LARA PARASITES GI PANEL PARASITES Normal [facility] Comment on above: Performed By: #### P REG #### [facility] [address] [address] [address] Esthela LARA VIRUS GI PANEL VIRUSES Normal [facility] Comment on above: Performed By: #### P REG #### [facility] [address] [address] [address] Esthela Stevens Norovirus GI/GII Not detected Normal NOT DETECTED [facility] Comment on above: Performed By: #### P REG #### [facility] [address] [address] [address] Esthela Herman. Shigelloides Not detected Normal NOT DETECTED [facility] Comment on above: Performed By: #### P REG #### [facility] [address] [place] [address] Dr. Esthela Stevens Rotavirus A Not detected Normal NOT DETECTED [facility] Comment on above: Performed By: #### P REG #### [facility] [address] [place] [address] Dr. Esthela Stevens Salmonella Not detected Normal NOT DETECTED [facility] Comment on above: Performed By: #### P REG #### [facility] [address] [place] [address] Dr. Esthela Stevens Sapovirus Not detected Normal NOT DETECTED [facility] Comment on above: Performed By: #### P REG #### [facility] [address] [place] [address] Dr. Esthela Stevens STEC Not detected Normal NOT DETECTED [facility] Comment on above: Performed By: #### P REG #### [facility] [address] [place] [address] Dr. Esthela Stevens Vibrio Not detected Normal NOT DETECTED [facility] Comment on above: Performed By: #### P REG #### [facility] [address] [place] [address] Dr. Esthela Stevens Vibrio Cholera Not detected Normal NOT DETECTED [facility] Comment on above: Performed By: #### P REG #### [facility] [address] [place] [address] Dr. Esthela Stevens Y. Enterocolitica Not detected Normal NOT DETECTED [facility] Comment on above: Performed By: #### P REG #### [facility] [address] [place] [address] Dr. Esthela Stevens CBC AUTO DIFFon 06-02-2022 BASO # 0.1 103/ul Normal 0.0-0.1 [facility] Comment on above: Performed By: #### L IVER, LDH, BMP #### [facility] [address] [place] [address] Dr. Esthela Stevens Basophils/100 WBC (Bld) 0.6 % Normal 0.2-2.0 [facility] Comment on above: Performed By: #### L IVER, LDH, BMP #### [facility] [address] [place] [address] Dr. Esthela Stevens EO # 0.5 103/ul Normal 0.0-0.7 [facility] Comment on above: Performed By: #### L IVER, LDH, BMP #### [facility] [address] [place] [address] Dr. Esthela Stevens Eosinophils/100 WBC (Bld) 4.3 % Normal 0.9-7.0 [facility] Comment on above: Performed By: #### L IVER, LDH, BMP #### [facility] [address] [place] [address] Dr. Esthela Stevens Erythrocyte distribution width (RBC) [Ratio] 13.0 % Normal 11.0-15.0 [facility] Comment on above: Performed By: #### L IVER, LDH, BMP #### [facility] [address] [place] [address] Dr. Esthela Stevens Hematocrit (Bld) [Volume fraction] 33.6 % Critically low 36.0-48.0 [facility] Comment on above: Performed By: #### L IVER, LDH, BMP #### [facility] [address] [place] [address] Dr. Esthela Stevens Hemoglobin (Bld) [Mass/Vol] 10.9 g/dL Critically low 12.0-16.0 [facility] Comment on above: Performed By: #### L IVER, LDH, BMP #### [facility] [address] [place] [address] Dr. Esthela Stevens IG # 0.05 10e3/ul Critically high 0.00-0.03 [facility] Comment on above: Performed By: #### L IVER, LDH, BMP #### [facility] [address] [place] [address] Dr. Esthela Stevens IG % 0.5 % Normal 0.0-0.5 [facility] Comment on above: Performed By: #### L IVER, LDH, BMP #### [facility] [address] [place] [address] Dr. Esthela Stevens LYMPH # 2.4 103/ul Normal 1.2-3.8 [facility] Comment on above: Performed By: #### L IVER, LDH, BMP #### [facility] [address] [place] [address] Dr. Esthela Stevens Lymphocytes/100 WBC (Bld) 22.4 % Normal 20.5-60.0 [facility] Comment on above: Performed By: #### L IVER, LDH, BMP #### [facility] [address] [place] [address] Dr. Esthela Stevens MANUAL DIFF REQ NO Normal [facility] Comment on above: Performed By: #### L IVER, LDH, BMP #### [facility] [address] [place] [address] Dr. Esthela Stevens MCH (RBC) [Entitic mass] 26.9 pg Normal 26.7-34.0 [facility] Comment on above: Performed By: #### L IVER, LDH, BMP #### [facility] [address] [place] [address] Dr. Esthela Stevens MCHC (RBC) [Mass/Vol] 32.4 g/dL Normal 29.9-35.2 [facility] Comment on above: Performed By: #### L IVER, LDH, BMP #### [facility] [address] [place] [address] Dr. Esthela Stevens MCV (RBC) [Entitic vol] 83.0 fL Normal 81.0-99.0 [facility] Comment on above: Performed By: #### L IVER, LDH, BMP #### [facility] [address] [place] [address] Dr. Esthela Stevens MONO # 0.8 103/ul Normal 0.3-0.8 [facility] Comment on above: Performed By: #### L IVER, LDH, BMP #### [facility] [address] [place] [address] Dr. Esthela Stevens Monocytes/100 WBC (Bld) 7.1 % Normal 1.7-12.0 [facility] Comment on above: Performed By: #### L IVER, LDH, BMP #### [facility] [address] [address] [address] Esthela Stevens NEUT # 7.0 103/ul Critically high 1.4-6.5 [facility] Comment on above: Performed By: #### L IVER, LDH, BMP #### [facility] [address] [address] [address] Esthela Stevens Neutrophils/100 WBC (Bld) 65.1 % Normal 43.0-75.0 [facility] Comment on above: Performed By: #### L IVER, LDH, BMP #### [facility] [address] [address] [address] Esthela Stevens Platelet mean volume (Bld) [Entitic vol] 8.9 fL Critically low 9.5-13.5 [facility] Comment on above: Performed By: #### L IVER, LDH, BMP #### [facility] [address] [address] [address] Esthela Stevens PLT 519 103/ul Critically high 150-450 [facility] Comment on above: Performed By: #### L IVER, LDH, BMP #### [facility] [address] [address] [address] Esthela Stevens RBC 4.05 106/ul Critically low 4.20-5.40 [facility] Comment on above: Performed By: #### L IVER, LDH, BMP #### [facility] [address] [address] [address] Esthela Stevens WBC 10.8 103/ul Normal 4.0-11.0 [facility] Comment on above: Performed By: #### L IVER, LDH, BMP #### [facility] [address] [address] [address] Estehla Stevens PROF 14(COMP METB)on 022 Albumin [Mass/Vol] 3.7 g/dL Normal 3.4-5.0 [facility] Comment on above: Performed By: #### L IVER, LDH, BMP #### [facility] [address] [place] [address] Dr. Esthela Stevens Albumin/Globulin [Mass ratio] 1.0 {ratio} Normal [facility] Comment on above: Performed By: #### L IVER, LDH, BMP #### [facility] [address] [address] [address] Esthela Stevens ALP [Catalytic activity/Vol] 75 U/L Normal 46-116 [facility] Comment on above: Performed By: #### L IVER, LDH, BMP #### [facility] [address] [place] [address] Dr. Esthela Stevens ALT [Catalytic activity/Vol] 95 U/L Critically high 14-59 [facility] Comment on above: Performed By: #### L IVER, LDH, BMP #### [facility] [address] [place] [address] Dr. Esthela Stevens Anion gap [Moles/Vol] 13.4 mmol/L Normal [facility] Comment on above: Performed By: #### L IVER, LDH, BMP #### [facility] [address] [place] [address] Dr. Esthela Stevens AST [Catalytic activity/Vol] 31 U/L Normal 15-37 [facility] Comment on above: Performed By: #### L IVER, LDH, BMP #### [facility] [address] [place] [address] Dr. Esthela Stevens Bilirubin [Mass/Vol] 0.1 mg/dL Critically low 0.2-1.0 [facility] Comment on above: Performed By: #### L IVER, LDH, BMP #### [facility] [address] [place] [address] Dr. Esthela Stevens Calcium [Mass/Vol] 9.3 mg/dL Normal 8.5-10.1 [facility] Comment on above: Performed By: #### L IVER, LDH, BMP #### [facility] [address] [place] [address] Dr. Esthela Stevens Chloride [Moles/Vol] 102 mmol/L Normal 98-107 [facility] Comment on above: Performed By: #### L IVER, LDH, BMP #### [facility] [address] [address] [address] Esthela Stevens CO2 [Moles/Vol] 26.4 mmol/L Normal 21.0-32.0 [facility] Comment on above: Performed By: #### L IVER, LDH, BMP #### [facility] [address] [address] [address] Esthela Stevens Creatinine [Mass/Vol] 0.67 mg/dL Normal 0.55-1.02 [facility] Comment on above: Performed By: #### L IVER, LDH, BMP #### [facility] [address] [address] [address] Esthela Stevens EGFR-AF NEW ZEALANDER >60 Normal >=60 [facility] Comment on above: Performed By: #### L IVER, LDH, BMP #### [facility] [address] [place] [address] Dr. Esthela Stevens EGFR-NON AF NEW ZEALANDER >60 Normal >=60 [facility] Comment on above: Performed By: #### L IVER, LDH, BMP #### [facility] [address] [address] [address] Esthela Stevens Globulin (S) [Mass/Vol] 3.7 g/dL Normal [facility] Comment on above: Performed By: #### L IVER, LDH, BMP #### [facility] [address] [address] [address] Esthela Stevens Glucose [Mass/Vol] 101 mg/dL Normal 74-106 [facility] Comment on above: Performed By: #### L IVER, LDH, BMP #### [facility] [address] [address] [address] Esthela Stevens Potassium [Moles/Vol] 3.8 mmol/L Normal 3.5-5.1 [facility] Comment on above: Performed By: #### L IVER, LDH, BMP #### [facility] [address] [address] [address] Esthela Stevens Protein [Mass/Vol] 7.4 g/dL Normal 6.4-8.2 [facility] Comment on above: Performed By: #### L IVER, LDH, BMP #### [facility] [address] [address] [address] Esthela Stevens Sodium [Moles/Vol] 138 mmol/L Normal 136-145 [facility] Comment on above: Performed By: #### L IVER, LDH, BMP #### [facility] [address] [address] [address] Esthela Stevens Urea nitrogen [Mass/Vol] 12.0 mg/dL Normal 7.0-18.0 [facility] Comment on above: Performed By: #### L IVER, LDH, BMP #### [facility] [address] [address] [address] Esthela Stevens Urea nitrogen/Creatinine [Mass ratio] 17.9 mg/mg Normal [facility] Comment on above: Performed By: #### L IVER, LDH, BMP #### [facility] [address] [address] [address] Esthela Stevens CALCIUMon 05-29-2022 Calcium [Mass/Vol] 9.0 mg/dL 8.6 - 10. 5 mg/dL [facility] CBC,PLATELETSon 05-29-2022 Erythrocyte distribution width (RBC) [Ratio] 13.1 % 10.8 - 14.9 % [facility] Hematocrit (Bld) [Volume fraction] 33.0 % Low 34.9 - 44.3 % [facility] Hemoglobin (Bld) [Mass/Vol] 10.5 g/dL Low 11.4 - 15.2 g/dL [facility] Interpretation and review of laboratory results Abnormal [facility] MCH (RBC) [Entitic mass] 27.1 pg 25.9 - 33.9 pg [facility] MCHC (RBC) [Mass/Vol] 31.8 g/dL 31.4 - 35.9 g/dL [facility] MCV (RBC) [Entitic vol] 85.1 fL 79.6 - 97.7 fL [facility] Platelet mean volume (Bld) [Entitic vol] 9.1 fL 8.5 - 12.2 fL [facility] Platelets (Bld) [#/Vol] 423 10*3/uL High 150 - 393 K/uL [facility] RBC (Bld) [#/Vol] 3.88 10*6/uL Low [facility] WBC (Bld) [#/Vol] 7.36 10*3/uL 3.99 - 11. 19 K/uL [facility] CHEM 7 (LYTES,BUN,CREA,GLUC) on 05-29-2022 Anion gap [Moles/Vol] 13 mmol/L 7 - 17 mmol/L [facility] Chloride [Moles/Vol] 104 mmol/L 98 - 108 mmol/L [facility] CO2 [Moles/Vol] 26 mmol/L 21 - 31 mmol/L [facility] Creatinine [Mass/Vol] 0.66 mg/dL 0.50 - 1.20 mg/dL [facility] GFR/1.73 sq M.predicted CKD-EPI (S/P/Bld) [Vol rate/Area] - PINF [facility] Comment on above: Reported eGFR is bas ed on the CKD-EPI 2020 equation using creatinine, age, and sex. Glucose [Mass/Vol] 93 mg/dL 70 - 99 mg/dL [facility] Osmolality Calc [Osmolality] 288 [facility] Potassium [Moles/Vol] 4.2 mmol/L 3.5 - 5.0 mmol/L [facility] Sodium [Moles/Vol] 139 mmol/L 135 - 145 mmol/L [facility] Urea nitrogen [Mass/Vol] 5 mg/dL Low 7 - 25 mg/dL [facility] Urea nitrogen/Creatinine [Mass ratio] 8 mg/mg [facility] MAGNESIUMon 05-29-2022 Magnesium [Mass/Vol] 2.1 mg/dL 1.6 - 2.6 mg/dL [facility] No Panel Informationon 05-29 Interpretation and review of laboratory results Abnormal [facility] Interpretation and review of laboratory results Normal [facility] PHOSPHATE, INORGANICon 05-29 Phosphate [Mass/Vol] 4.8 mg/dL High 2.2 - 4.6 mg/dL [facility] CALCIUMon 05-28-2022 Calcium [Mass/Vol] 8.6 mg/dL 8.6 - 10. 5 mg/dL [facility] CBC,PLATELETSon 05-28-2022 Erythrocyte distribution width (RBC) [Ratio] 13.0 % 10.8 - 14.9 % [facility] Hematocrit (Bld) [Volume fraction] 30.5 % Low 34.9 - 44.3 % [facility] Hemoglobin (Bld) [Mass/Vol] 9.8 g/dL Low 11.4 - 15.2 g/dL [facility] Interpretation and review of laboratory results Abnormal [facility] MCH (RBC) [Entitic mass] 26.8 pg 25.9 - 33.9 pg [facility] MCHC (RBC) [Mass/Vol] 32.1 g/dL 31.4 - 35.9 g/dL [facility] MCV (RBC) [Entitic vol] 83.6 fL 79.6 - 97.7 fL [facility] Platelet mean volume (Bld) [Entitic vol] 9.3 fL 8.5 - 12.2 fL [facility] Platelets (Bld) [#/Vol] 374 10*3/uL 150 - 393 K/uL [facility] RBC (Bld) [#/Vol] 3.65 10*6/uL Low [facility] WBC (Bld) [#/Vol] 6.07 10*3/uL 3.99 - 11. 19 K/uL [facility] CHEM 7 (LYTES,BUN,CREA,GLUC) on 05-28-2022 Anion gap [Moles/Vol] 11 mmol/L 7 - 17 mmol/L [facility] Chloride [Moles/Vol] 106 mmol/L 98 - 108 mmol/L [facility] CO2 [Moles/Vol] 25 mmol/L 21 - 31 mmol/L [facility] Creatinine [Mass/Vol] 0.50 mg/dL 0.50 - 1.20 mg/dL [facility] GFR/1.73 sq M.predicted CKD-EPI (S/P/Bld) [Vol rate/Area] - PINF [facility] Comment on above: Reported eGFR is bas ed on the CKD-EPI 2020 equation using creatinine, age, and sex. Glucose [Mass/Vol] 89 mg/dL 70 - 99 mg/dL [facility] Osmolality Calc [Osmolality] 285 [facility] Potassium [Moles/Vol] 4.1 mmol/L 3.5 - 5.0 mmol/L [facility] Sodium [Moles/Vol] 138 mmol/L 135 - 145 mmol/L [facility] Urea nitrogen [Mass/Vol] 3 mg/dL Low 7 - 25 mg/dL [facility] Urea nitrogen/Creatinine [Mass ratio] 6 mg/mg [facility] MAGNESIUMon 05-28-2022 Magnesium [Mass/Vol] 1.8 mg/dL 1.6 - 2.6 mg/dL [facility] No Panel Informationon 05-28 Interpretation and review of laboratory results Abnormal [facility] Interpretation and review of laboratory results Normal [facility] PHOSPHATE, INORGANICon 05-28 Phosphate [Mass/Vol] 4.9 mg/dL High 2.2 - 4.6 mg/dL [facility] CALCIUMon 05-27-2022 Calcium [Mass/Vol] 8.6 mg/dL 8.6 - 10. 5 mg/dL [facility] CBC,PLATELETSon 05-27-2022 Erythrocyte distribution width (RBC) [Ratio] 12.9 % 10.8 - 14.9 % [facility] Hematocrit (Bld) [Volume fraction] 31.1 % Low 34.9 - 44.3 % [facility] Hemoglobin (Bld) [Mass/Vol] 10.1 g/dL Low 11.4 - 15.2 g/dL [facility] Interpretation and review of laboratory results Abnormal [facility] MCH (RBC) [Entitic mass] 27.2 pg 25.9 - 33.9 pg [facility] MCHC (RBC) [Mass/Vol] 32.5 g/dL 31.4 - 35.9 g/dL [facility] MCV (RBC) [Entitic vol] 83.8 fL 79.6 - 97.7 fL [facility] Platelet mean volume (Bld) [Entitic vol] 9.2 fL 8.5 - 12.2 fL [facility] Platelets (Bld) [#/Vol] 344 10*3/uL 150 - 393 K/uL [facility] RBC (Bld) [#/Vol] 3.71 10*6/uL Low [facility] WBC (Bld) [#/Vol] 6.21 10*3/uL 3.99 - 11. 19 K/uL [facility] CHEM 7 (LYTES,BUN,CREA,GLUC) on 05-27-2022 Anion gap [Moles/Vol] 11 mmol/L 7 - 17 mmol/L [facility] Chloride [Moles/Vol] 105 mmol/L 98 - 108 mmol/L [facility] CO2 [Moles/Vol] 26 mmol/L 21 - 31 mmol/L [facility] Creatinine [Mass/Vol] 0.49 mg/dL Low 0.50 - 1.20 mg/dL [facility] GFR/1.73 sq M.predicted CKD-EPI (S/P/Bld) [Vol rate/Area] - PINF [facility] Comment on above: Reported eGFR is bas ed on the CKD-EPI 2020 equation using creatinine, age, and sex. Glucose [Mass/Vol] 93 mg/dL 70 - 99 mg/dL [facility] Interpretation and review of laboratory results Abnormal [facility] Osmolality Calc [Osmolality] 285 [facility] Potassium [Moles/Vol] 4.0 mmol/L 3.5 - 5.0 mmol/L [facility] Sodium [Moles/Vol] 138 mmol/L 135 - 145 mmol/L [facility] Urea nitrogen [Mass/Vol] 3 mg/dL Low 7 - 25 mg/dL [facility] Urea nitrogen/Creatinine [Mass ratio] 6 mg/mg [facility] MAGNESIUMon 05-27-2022 Magnesium [Mass/Vol] 1.9 mg/dL 1.6 - 2.6 mg/dL [facility] No Panel Informationon 05-27 Interpretation and review of laboratory results Normal [facility] PHOSPHATE, INORGANICon 05-27 Phosphate [Mass/Vol] 4.5 mg/dL 2.2 - 4.6 mg/dL [facility] CALCIUMon 05-26-2022 Calcium [Mass/Vol] 8.4 mg/dL Low 8.6 - 10. 5 mg/dL [facility] CBC,PLATELETSon 05-26-2022 Erythrocyte distribution width (RBC) [Ratio] 12.8 % 10.8 - 14.9 % [facility] Hematocrit (Bld) [Volume fraction] 31.5 % Low 34.9 - 44.3 % [facility] Hemoglobin (Bld) [Mass/Vol] 10.0 g/dL Low 11.4 - 15.2 g/dL [facility] Interpretation and review of laboratory results Abnormal [facility] MCH (RBC) [Entitic mass] 27.0 pg 25.9 - 33.9 pg [facility] MCHC (RBC) [Mass/Vol] 31.7 g/dL 31.4 - 35.9 g/dL [facility] MCV (RBC) [Entitic vol] 84.9 fL 79.6 - 97.7 fL [facility] Platelet mean volume (Bld) [Entitic vol] 9.7 fL 8.5 - 12.2 fL [facility] Platelets (Bld) [#/Vol] 327 10*3/uL 150 - 393 K/uL [facility] RBC (Bld) [#/Vol] 3.71 10*6/uL Low [facility] WBC (Bld) [#/Vol] 7.91 10*3/uL 3.99 - 11. 19 K/uL [facility] CHEM 7 (LYTES,BUN,CREA,GLUC) on 05-26-2022 Anion gap [Moles/Vol] 13 mmol/L 7 - 17 mmol/L [facility] Chloride [Moles/Vol] 102 mmol/L 98 - 108 mmol/L [facility] CO2 [Moles/Vol] 23 mmol/L 21 - 31 mmol/L [facility] Creatinine [Mass/Vol] 0.48 mg/dL Low 0.50 - 1.20 mg/dL [facility] GFR/1.73 sq M.predicted CKD-EPI (S/P/Bld) [Vol rate/Area] - [facility] Comment on above: Reported eGFR is bas ed on the CKD-EPI 2020 equation using creatinine, age, and sex. Glucose [Mass/Vol] 154 mg/dL High 70 - 99 mg/dL [facility] Osmolality Calc [Osmolality] 282 [facility] Potassium [Moles/Vol] 4.1 mmol/L 3.5 - 5.0 mmol/L [facility] Sodium [Moles/Vol] 134 mmol/L Low 135 - 145 mmol/L [facility] Urea nitrogen [Mass/Vol] 3 mg/dL Low 7 - 25 mg/dL [facility] Urea nitrogen/Creatinine [Mass ratio] 6 mg/mg [facility] MAGNESIUMon 05-26-2022 Magnesium [Mass/Vol] 1.8 mg/dL 1.6 - 2.6 mg/dL [facility] No Panel Informationon 05-26 Interpretation and review of laboratory results Abnormal [facility] Interpretation and review of laboratory results Normal [facility] PHOSPHATE, INORGANICon 05-26 Phosphate [Mass/Vol] 3.4 mg/dL 2.2 - 4.6 mg/dL [facility] CALCIUMon 05-25-2022 Calcium [Mass/Vol] 8.5 mg/dL Low 8.6 - 10. 5 mg/dL [facility] CBC,PLATELETSon 05-25-2022 Erythrocyte distribution width (RBC) [Ratio] 12.8 % 10.8 - 14.9 % [facility] Hematocrit (Bld) [Volume fraction] 31.7 % Low 34.9 - 44.3 % [facility] Hemoglobin (Bld) [Mass/Vol] 9.8 g/dL Low 11.4 - 15.2 g/dL [facility] Interpretation and review of laboratory results Abnormal [facility] MCH (RBC) [Entitic mass] 26.6 pg 25.9 - 33.9 pg [facility] MCHC (RBC) [Mass/Vol] 30.9 g/dL Low 31.4 - 35.9 g/dL [facility] MCV (RBC) [Entitic vol] 85.9 fL 79.6 - 97.7 fL [facility] Platelet mean volume (Bld) [Entitic vol] 9.7 fL 8.5 - 12.2 fL [facility] Platelets (Bld) [#/Vol] 292 10*3/uL 150 - 393 K/uL [facility] RBC (Bld) [#/Vol] 3.69 10*6/uL Low [facility] WBC (Bld) [#/Vol] 9.85 10*3/uL 3.99 - 11. 19 K/uL [facility] CHEM 7 (LYTES,BUN,CREA,GLUC) on 05-25-2022 Anion gap [Moles/Vol] 13 mmol/L 7 - 17 mmol/L [facility] Chloride [Moles/Vol] 104 mmol/L 98 - 108 mmol/L [facility] CO2 [Moles/Vol] 24 mmol/L 21 - 31 mmol/L [facility] Creatinine [Mass/Vol] 0.51 mg/dL 0.50 - 1.20 mg/dL [facility] GFR/1.73 sq M.predicted CKD-EPI (S/P/Bld) [Vol rate/Area] - PINF [facility] Comment on above: Reported eGFR is bas ed on the CKD-EPI 2020 equation using creatinine, age, and sex. Glucose [Mass/Vol] 98 mg/dL 70 - 99 mg/dL [facility]ality] [facility] Potassium [Moles/Vol] 4.0 mmol/L 3.5 - 5.0 mmol/L [facility] Sodium [Moles/Vol] 137 mmol/L 135 - 145 mmol/L [facility] Urea nitrogen [Mass/Vol] 2 mg/dL Low 7 - 25 mg/dL [facility] Urea nitrogen/Creatinine [Mass ratio] 4 mg/mg [facility] MAGNESIUMon 05-25-2022 Magnesium [Mass/Vol] 1.8 mg/dL 1.6 - 2.6 mg/dL [facility] No Panel Informationon 05-25 Interpretation and review of laboratory results Abnormal [facility] Interpretation and review of laboratory results Normal [facility] PHOSPHATE, INORGANICon 05-25 Phosphate [Mass/Vol] 3.2 mg/dL 2.2 - 4.6 mg/dL [facility] CALCIUMon 05-24-2022 Calcium [Mass/Vol] 7.9 mg/dL Low 8.6 - 10. 5 mg/dL [facility] CBC,PLATELETSon 05-24-2022 Erythrocyte distribution width (RBC) [Ratio] 13.2 % 10.8 - 14.9 % [facility] Hematocrit (Bld) [Volume fraction] 33.0 % Low 34.9 - 44.3 % [facility] Hemoglobin (Bld) [Mass/Vol] 10.4 g/dL Low 11.4 - 15.2 g/dL [facility] Interpretation and review of laboratory results Abnormal [facility] MCH (RBC) [Entitic mass] 27.2 pg 25.9 - 33.9 pg [facility] MCHC (RBC) [Mass/Vol] 31.5 g/dL 31.4 - 35.9 g/dL [facility] MCV (RBC) [Entitic vol] 86.2 fL 79.6 - 97.7 fL [facility] Platelet mean volume (Bld) [Entitic vol] 9.7 fL 8.5 - 12.2 fL [facility] Platelets (Bld) [#/Vol] 270 10*3/uL 150 - 393 K/uL [facility] RBC (Bld) [#/Vol] 3.83 10*6/uL Low [facility] WBC (Bld) [#/Vol] 13.10 10*3/uL High 3.99 - 11 .19 K/uL [facility] CHEM 7 (LYTES,BUN,CREA,GLUC) on 05-24-2022 Anion gap [Moles/Vol] 10 mmol/L 7 - 17 mmol/L [facility] Chloride [Moles/Vol] 105 mmol/L 98 - 108 mmol/L [facility] CO2 [Moles/Vol] 24 mmol/L 21 - 31 mmol/L [facility] Creatinine [Mass/Vol] 0.51 mg/dL 0.50 - 1.20 mg/dL [facility] GFR/1.73 sq M.predicted CKD-EPI (S/P/Bld) [Vol rate/Area] - [facility] Comment on above: Reported eGFR is bas ed on the CKD-EPI 2020 equation using creatinine, age, and sex. Glucose [Mass/Vol] 121 mg/dL High 70 - 99 mg/dL [facility] Osmolality Calc [Osmolality] 281 [facility] Potassium [Moles/Vol] 4.1 mmol/L 3.5 - 5.0 mmol/L [facility] Sodium [Moles/Vol] 135 mmol/L 135 - 145 mmol/L [facility] Urea nitrogen [Mass/Vol] 2 mg/dL Low 7 - 25 mg/dL [facility] Urea nitrogen/Creatinine [Mass ratio] 4 mg/mg [facility] MAGNESIUMon 05-24-2022 Interpretation and review of laboratory results Normal [facility] Magnesium [Mass/Vol] 1.7 mg/dL 1.6 - 2.6 mg/dL [facility] No Panel Informationon 05-24 Interpretation and review of laboratory results Abnormal [facility] PHOSPHATE, INORGANICon 05-24 Phosphate [Mass/Vol] 2.1 mg/dL Low 2.2 - 4.6 mg/dL [facility] CALCIUMon 05-23-2022 Calcium [Mass/Vol] 8.0 mg/dL Low 8.6 - 10. 5 mg/dL [facility] Interpretation and review of laboratory results Abnormal [facility] CBC,PLATELETSon 05-23-2022 Erythrocyte distribution width (RBC) [Ratio] 13.0 % 10.8 - 14.9 % [facility] Hematocrit (Bld) [Volume fraction] 38.4 % 34.9 - 44.3 % [facility] Hemoglobin (Bld) [Mass/Vol] 12.3 g/dL 11.4 - 15.2 g/dL [facility] Interpretation and review of laboratory results Abnormal [facility] MCH (RBC) [Entitic mass] 26.8 pg 25.9 - 33.9 pg [facility] MCHC (RBC) [Mass/Vol] 32.0 g/dL 31.4 - 35.9 g/dL [facility] MCV (RBC) [Entitic vol] 83.7 fL 79.6 - 97.7 fL [facility] Platelet mean volume (Bld) [Entitic vol] 9.6 fL 8.5 - 12.2 fL [facility] Platelets (Bld) [#/Vol] 354 10*3/uL 150 - 393 K/uL [facility] RBC (Bld) [#/Vol] 4.59 10*6/uL [facility] WBC (Bld) [#/Vol] 12.80 10*3/uL High 3.99 - 11 .19 K/uL [facility] CHEM 7 (LYTES,BUN,CREA,GLUC) Ordered By: Shraddha Munguia on 05-23-2022 Anion gap [Moles/Vol] 13 mmol/L 7 - 17 mmol/L [facility] Chloride [Moles/Vol] 103 mmol/L 98 - 108 mmol/L [facility] CO2 [Moles/Vol] 24 mmol/L 21 - 31 mmol/L [facility] Creatinine [Mass/Vol] 0.68 mg/dL 0.50 - 1.20 mg/dL [facility] GFR/1.73 sq M.predicted CKD-EPI (S/P/Bld) [Vol rate/Area] - PINF [facility] Comment on above: Reported eGFR is bas ed on the CKD-EPI 2020 equation using creatinine, age, and sex. Glucose [Mass/Vol] 148 mg/dL High 70 - 99 mg/dL [facility] Interpretation and review of laboratory results Abnormal [facility] Osmolality Calc [Osmolality] 285 [facility] Potassium [Moles/Vol] 4.9 mmol/L 3.5 - 5.0 mmol/L [facility] Sodium [Moles/Vol] 135 mmol/L 135 - 145 mmol/L [facility] Urea nitrogen [Mass/Vol] 4 mg/dL Low 7 - 25 mg/dL [facility] Urea nitrogen/Creatinine [Mass ratio] 6 mg/mg [facility] MAGNESIUMon 05-23-2022 Magnesium [Mass/Vol] 2.5 mg/dL 1.6 - 2.6 mg/dL [facility] No Panel Informationon 05-23 Interpretation and review of laboratory results Normal [facility] PHOSPHATE, INORGANICon 05-23 Phosphate [Mass/Vol] 2.7 mg/dL 2.2 - 4.6 mg/dL [facility] BETA HCG, URINE (POC DEVICE) on 05-22-2022 Beta HCG ( test) Ql (U) Negative Negative [facility] Interpretation and review of laboratory results Normal [facility] Test performed at address of the patient encounter. [facility] CALCIUMon 05-22-2022 Calcium [Mass/Vol] 7.8 mg/dL Low 8.6 - 10. 5 mg/dL [facility] CBC,PLATELETSon 05-22-2022 Erythrocyte distribution width (RBC) [Ratio] 12.7 % 10.8 - 14.9 % [facility] Hematocrit (Bld) [Volume fraction] 37.0 % 34.9 - 44.3 % [facility] Hemoglobin (Bld) [Mass/Vol] 12.0 g/dL 11.4 - 15.2 g/dL [facility] Interpretation and review of laboratory results Abnormal [facility] MCH (RBC) [Entitic mass] 26.3 pg 25.9 - 33.9 pg [facility] MCHC (RBC) [Mass/Vol] 32.4 g/dL 31.4 - 35.9 g/dL [facility] MCV (RBC) [Entitic vol] 81.0 fL 79.6 - 97.7 fL [facility] Platelet mean volume (Bld) [Entitic vol] 9.5 fL 8.5 - 12.2 fL [facility] Platelets (Bld) [#/Vol] 350 10*3/uL 150 - 393 K/uL [facility] RBC (Bld) [#/Vol] 4.57 10*6/uL [facility] WBC (Bld) [#/Vol] 17.70 10*3/uL High 3.99 - 11 .19 K/uL [facility] CHEM 7 (LYTES,BUN,CREA,GLUC) on 05-22-2022 Anion gap [Moles/Vol] 16 mmol/L 7 - 17 mmol/L [facility] Chloride [Moles/Vol] 103 mmol/L 98 - 108 mmol/L [facility] CO2 [Moles/Vol] 21 mmol/L 21 - 31 mmol/L [facility] Creatinine [Mass/Vol] 0.56 mg/dL 0.50 - 1.20 mg/dL [facility] GFR/1.73 sq M.predicted CKD-EPI (S/P/Bld) [Vol rate/Area] - PINF [facility] Comment on above: Reported eGFR is bas ed on the CKD-EPI 2020 equation using creatinine, age, and sex. Glucose [Mass/Vol] 133 mg/dL High 70 - 99 mg/dL [facility] Osmolality Calc [facility]olality] [facility] Potassium [Moles/Vol] 3.9 mmol/L 3.5 - 5.0 mmol/L [facility] Sodium [Moles/Vol] 136 mmol/L 135 - 145 mmol/L [facility] Urea nitrogen [Mass/Vol] 6 mg/dL Low 7 - 25 mg/dL [facility] Urea nitrogen/Creatinine [Mass ratio] 11 mg/mg [facility] CONTINUOUS CARDIAC MONITORIN G STRIPon 05-22-2022 [facility] CONTINUOUS CARDIAC MONITORIN G STRIPOrdered By: Unassigned Pacs on 05-22-2022 [facility] Work Phone: HEPATIC FUNCTION PANELon Albumin [Mass/Vol] 3.8 g/dL 3.5 - 5.0 g/dL [facility] ALP [Catalytic activity/Vol] 54 U/L 32 - 126 U/L [facility] ALT [Catalytic activity/Vol] 17 U/L 9 - 48 U/L [facility] AST [Catalytic activity/Vol] 23 U/L 10 - 39 U/L [facility] Bilirubin [Mass/Vol] 0.5 mg/dL NINF - 1.5 mg/dL [facility] Bilirubin.direct [Mass/Vol] 0.2 mg/dL NINF - 0.3 mg/dL [facility] Protein [Mass/Vol] 6.3 g/dL Low 6.4 - 8.3 g/dL [facility] MAGNESIUMon 05-22-2022 Magnesium [Mass/Vol] 1.4 mg/dL Low 1.6 - 2.6 mg/dL [facility] No Panel Informationon 05-22 ABO/RH(D) TYPE Positive [facility] BLOOD COMPONENT TYPE Red Cells, Leukoreduced [facility] EXPIRATION DATE [id number] [facility] Product ABO/RH(D) Positive [facility] Product ABO/RH(D) NUMBER [id number] [facility] PRODUCT CODE [id number] [facility] UNIT STATUS released [facility] Interpretation and review of laboratory results Abnormal [facility] PHOSPHATE, INORGANICon 05-22 Interpretation and review of laboratory results Normal [facility] Phosphate [Mass/Vol] 3.3 mg/dL 2.2 - 4.6 mg/dL [facility] POC ARTERIAL BLOOD GASon Base excess Calc (Bld) [Moles/Vol] -2.1000 mmol/L -3.0 - 3.0 mmol/L [facility] Calcium.ionized (Bld) [Mass/Vol] 4.22 mg/dL Low 4.60 - 5.30 mg/dL [facility] CO2 (Bld) [Partial pressure] 33 mm[Hg] [facility] Glucose [Mass/Vol] 127 mg/dL High 70 - 99 mg/dL [facility] HCO3 (Bld) [Moles/Vol] 22 mmol/L 22 - 28 mmol/L [facility] Hematocrit (Bld) [Volume fraction] 34.5 % 34.2 - 45.6 % [facility] Hemoglobin (Bld) [Mass/Vol] 11.3 g/dL Low 11.4 - 15.2 g/dL [facility] Interpretation and review of laboratory results Abnormal [facility] Lactate [Moles/Vol] 1.2 mmol/L 0.5 - 1. 6 mmol/L [facility] Oxygen (Bld) [Partial pressure] 230 mm[Hg] High [facility] Oxygen saturation in Blood 99 % [facility] pH (Bld) 7.42 [pH] 7.35 - 7.45 [facility] Potassium [Moles/Vol] 3.6 mmol/L 3.5 - 5.0 mmol/L [facility] Sodium [Moles/Vol] 137 mmol/L 135 - 145 mmol/L [facility] Specimen source Nom (Unsp spec) Arterial [facility] Test performed at address of the patient encounter. [facility] Base excess Calc (Bld) [Moles/Vol] 0.0 mmol/L -3.0 - 3.0 mmol/L [facility] Calcium.ionized (Bld) [Mass/Vol] 4.56 mg/dL Low 4.60 - 5.30 mg/dL [facility] CO2 (Bld) [Partial pressure] 38 mm[Hg] [facility] Glucose [Mass/Vol] 138 mg/dL High 70 - 99 mg/dL [facility] HCO3 (Bld) [Moles/Vol] 24 mmol/L 22 - 28 mmol/L [facility] Hematocrit (Bld) [Volume fraction] 34.7 % 34.2 - 45.6 % [facility] Hemoglobin (Bld) [Mass/Vol] 11.3 g/dL Low 11.4 - 15.2 g/dL [facility] Interpretation and review of laboratory results Abnormal [facility] Oxygen (Bld) [Partial pressure] 197 mm[Hg] High [facility] Oxygen saturation in Blood 99 % [facility] pH (Bld) 7.42 [pH] 7.35 - 7.45 [facility] Potassium [Moles/Vol] 3.4 mmol/L Low 3.5 - 5.0 mmol/L [facility] Sodium [Moles/Vol] 138 mmol/L 135 - 145 mmol/L [facility] Specimen source Nom (Unsp spec) Arterial [facility] Test performed at address of the patient encounter. [facility] PREPARE TO TRANSFUSE OR RED BLOOD CELLSon 05-22-2022 UNIT NUMBER [id number] [facility] UNIT NUMBER [id number] [facility] PROTIME-INRon 05-22-2022 INR Coag (Bld) [Relative time] 1.2 {INR} High 0.9 - 1.1 [facility] Interpretation and review of laboratory results Abnormal [facility] PT Coag (PPP) [Time] 14.8 s High [facility] TYPE AND SCREENon 05-22-2022 ABO/RH(D) TYPE Positive [facility] XR Abdomen Single viewon IMPRESSION: Appropriate [...] of the nasogastric tube in the stomach. [facility] Radiology Study observation (narrative) [facility] XR Abdomen Single viewOrdere d By: Debora Burciaga on 05-22-2022 [facility] Work Phone: PREG HCG QUALon 04-08-2022 , QUAL Negative Normal NEGATIVE [facility] Comment on above: Performed By: #### P REG #### [facility] [address] [place], [place] [address] Dr. Esthela Stevens Covid-19 PCR ([facility])on 03-19 SARS-CoV-2 (COVID-19) RNA JORGE LUIS+probe Ql (Unsp spec) Not detected Normal NOT DETECTED [facility] Comment on above: Result Comment: This test is not yet approved or cleared by the [place] FDA. When there are no FDA-approved or cleared tests available, and other criteria are met, FDA can make tests available under an emergency access mechanism called an Emergency Use Authorization (EUA). The EUA for this test is supported by the [place] of Health and Human Service's (HHS's) declaration [...] By: #### L IVER, LDH, BMP #### [facility] [address] [place], [place] [address] Abdomen and Pelvis [...] error, please notify the sender immediately at [phone] and permanently delete the original report and [...] error, please notify the sender immediately at [phone] and permanently delete the original report and destroy any copies or printouts. [facility] CT Abdomen and Pelvis W cont rast IVOrdered By: Avinash Miller on 04-01-2022 [facility] [address] Chest W contrast Jason [...] 1. No evidence for intrathoracic metastatic disease [facility] CT Chest W contrast IVOrdere d By: Yovany Bills on 03-31-2022 [facility] Work Phone: No Panel Informationon 03-31 Radiology Study observation (narrative) [facility] CBC AND ELECTRONIC DIFFon Basophils (Bld) [#/Vol] 0.05 10*3/uL 0.00 - 0.15 K/uL [facility] Basophils/100 WBC (Bld) 0.6 % [facility] Differential cell count method Nom (Bld) Electronic Differential [facility] Eosinophils (Bld) [#/Vol] 0.07 10*3/uL 0.00 - 0.42 K/uL [facility] Eosinophils/100 WBC (Bld) 0.8 % [facility] Erythrocyte distribution width (RBC) [Ratio] 13.4 % 10.8 - 14.9 % [facility] Hematocrit (Bld) [Volume fraction] 37.9 % 34.9 - 44.3 % [facility] Hemoglobin (Bld) [Mass/Vol] 11.9 g/dL 11.4 - 15.2 g/dL [facility] Immature granulocytes (Bld) [#/Vol] 0.04 10*3/uL <=0.08 [facility] Immature granulocytes/100 WBC (Bld) 0.5 % [facility] Interpretation and review of laboratory results Abnormal [facility] Lymphocytes (Bld) [#/Vol] 2.33 10*3/uL 1.16 - 3.51 K/uL [facility] Lymphocytes/100 WBC (Bld) 27.4 % [facility] MCH (RBC) [Entitic mass] 26.3 pg 25.9 - 33.9 pg [facility] MCHC (RBC) [Mass/Vol] 31.4 g/dL 31.4 - 35.9 g/dL [facility] MCV (RBC) [Entitic vol] 83.8 fL 79.6 - 97.7 fL [facility] Monocytes (Bld) [#/Vol] 0.46 10*3/uL 0.22 - 0.87 K/uL [facility] Monocytes/100 WBC (Bld) 5.4 % [facility] Neutrophils (Bld) [#/Vol] 5.55 10*3/uL 1.64 - 7.28 K/uL [facility] Nucleated RBC/100 WBC (Bld) [Ratio] 0.0 % <=0.2 /100 WBC [facility] Platelet mean volume (Bld) [Entitic vol] 10.0 fL 8.5 - 12.2 fL [facility] Platelets (Bld) [#/Vol] 402 10*3/uL High 150 - 393 K/uL [facility] RBC (Bld) [#/Vol] 4.52 10*6/uL [facility] Segmented neutrophils/100 WBC (Bld) 65.3 % [facility] WBC (Bld) [#/Vol] 8.50 10*3/uL 3.99 - 11. 19 K/uL [facility] COMPREHENSIVE METABOLIC PANE Shamir 03-19-2022 Albumin [Mass/Vol] 4.5 g/dL 3.5 - 5.0 g/dL [facility] ALP [Catalytic activity/Vol] 67 U/L 32 - 126 U/L [facility] ALT [Catalytic activity/Vol] 15 U/L 9 - 48 U/L [facility] Anion gap [Moles/Vol] 16 mmol/L 7 - 17 mmol/L [facility] AST [Catalytic activity/Vol] 14 U/L 10 - 39 U/L [facility] Bilirubin [Mass/Vol] 0.4 mg/dL <1.5 [facility] Calcium [Mass/Vol] 9.8 mg/dL 8.6 - 10. 5 mg/dL [facility] Chloride [Moles/Vol] 100 mmol/L 98 - 108 mmol/L [facility] CO2 [Moles/Vol] 27 mmol/L 21 - 31 mmol/L [facility] Creatinine [Mass/Vol] 0.66 mg/dL 0.50 - 1.20 mg/dL [facility] GFR/1.73 sq M.predicted CKD-EPI (S/P/Bld) [Vol rate/Area] >90 >=60 mL/min/1.73m2 [facility] Comment on above: Reported eGFR is bas ed on the CKD-EPI 2020 equation using creatinine, age, and sex. Glucose [Mass/Vol] 73 mg/dL 70 - 99 mg/dL [facility] Osmolality Calc [Osmolality] 287 [facility] Potassium [Moles/Vol] 3.6 mmol/L 3.5 - 5.0 mmol/L [facility] Protein [Mass/Vol] 7.4 g/dL 6.4 - 8.3 g/dL [facility] Sodium [Moles/Vol] 139 mmol/L 135 - 145 mmol/L [facility] Urea nitrogen [Mass/Vol] 10 mg/dL 7 - 25 mg/dL [facility] Urea nitrogen/Creatinine [Mass ratio] 15 mg/mg [facility] PT,INR,PTTon 03-19-2022 aPTT Coag (PPP) [Time] 36.5 s [facility] INR Coag (Bld) [Relative time] 1.2 {INR} [facility] Interpretation and review of laboratory results Abnormal [facility] PT Coag (PPP) [Time] 14.6 s High [facility] CBC AUTO DIFFon 02-03-2022 BASO # 0.1 103/ul Normal 0.0-0.1 [facility] Comment on above: Performed By: #### L IVER, LDH, BMP #### [facility] [address] [place] [address] Dr. Esthela Stevens Basophils/100 WBC (Bld) 0.5 % Normal 0.2-2.0 [facility] Comment on above: Performed By: #### L IVER, LDH, BMP #### [facility] [address] [place] [address] [address] Esthela Stevens EO # 0.1 103/ul Normal 0.0-0.7 [facility] Comment on above: Performed By: #### L IVER, LDH, BMP #### [facility] [address] [address] [address] Esthela Stevens Eosinophils/100 WBC (Bld) 1.2 % Normal 0.9-7.0 [facility] Comment on above: Performed By: #### L IVER, LDH, BMP #### [facility] [address] [place] [address] Dr. Esthela Stevens Erythrocyte distribution width (RBC) [Ratio] 13.2 % Normal 11.0-15.0 [facility] Comment on above: Performed By: #### L IVER, LDH, BMP #### [facility] [address] [place] [address] Dr. Esthela Stevens Hematocrit (Bld) [Volume fraction] 38.4 % Normal 36.0-48.0 [facility] Comment on above: Performed By: #### L IVER, LDH, BMP #### [facility] [address] [place] [address] Dr. Esthela Stevens Hemoglobin (Bld) [Mass/Vol] 12.2 g/dL Normal 12.0-16.0 [facility] Comment on above: Performed By: #### L IVER, LDH, BMP #### [facility] [address] [place] [address] Dr. Esthela Stevens IG # 0.06 10e3/ul Critically high 0.00-0.03 [facility] Comment on above: Performed By: #### L IVER, LDH, BMP #### [facility] [address] [place] [address] Dr. Esthela Stevens IG % 0.6 % Critically high 0.0-0.5 [facility] Comment on above: Performed By: #### L IVER, LDH, BMP #### [facility] [address] [place] [address] Dr. Esthela Stevens LYMPH # 2.1 103/ul Normal 1.2-3.8 [facility] Comment on above: Performed By: #### L IVER, LDH, BMP #### [facility] [address] [place] [address] Dr. Esthela Stevens Lymphocytes/100 WBC (Bld) 21.7 % Normal 20.5-60.0 [facility] Comment on above: Performed By: #### L IVER, LDH, BMP #### [facility] [address] [place] [address] Dr. Esthela Stevens MANUAL DIFF REQ NO Normal [facility] Comment on above: Performed By: #### L IVER, LDH, BMP #### [facility] [address] [place] [address] Dr. Esthela Stevens MCH (RBC) [Entitic mass] 26.5 pg Critically low 26.7-34.0 [facility] Comment on above: Performed By: #### L IVER, LDH, BMP #### [facility] [address] [place] [address] Dr. Esthela Stevens MCHC (RBC) [Mass/Vol] 31.8 g/dL Normal 29.9-35.2 [facility] Comment on above: Performed By: #### L IVER, LDH, BMP #### [facility] [address] [place] [address] Dr. Esthela Stevens MCV (RBC) [Entitic vol] 83.5 fL Normal 81.0-99.0 [facility] Comment on above: Performed By: #### L IVER, LDH, BMP #### [facility] [address] [place] [address] Dr. Esthela Stevens MONO # 0.7 103/ul Normal 0.3-0.8 [facility] Comment on above: Performed By: #### L IVER, LDH, BMP #### [facility] [address] [place] [address] Dr. Esthela Stevens Monocytes/100 WBC (Bld) 7.5 % Normal 1.7-12.0 [facility] Comment on above: Performed By: #### L IVER, LDH, BMP #### [facility] [address] [place] [address] Dr. Esthela Stevens NEUT # 6.8 103/ul Critically high 1.4-6.5 [facility] Comment on above: Performed By: #### L IVER, LDH, BMP #### [facility] [address] [place] [address] Dr. Esthela Stevens Neutrophils/100 WBC (Bld) 68.5 % Normal 43.0-75.0 [facility] Comment on above: Performed By: #### L IVER, LDH, BMP #### [facility] [address] [place] [address] Dr. Esthela Stevens Platelet mean volume (Bld) [Entitic vol] 9.4 fL Critically low 9.5-13.5 [facility] Comment on above: Performed By: #### L IVER, LDH, BMP #### [facility] [address] [address] [address] Esthela Stevens PLT 403 103/ul Normal 150-450 [facility] Comment on above: Performed By: #### L IVER, LDH, BMP #### [facility] [address] [place] [address] Dr. Esthela Stevens RBC 4.60 106/ul Normal 4.20-5.40 [facility] Comment on above: Performed By: #### L IVER, LDH, BMP #### [facility] [address] [place] [address] Dr. Esthela Stevens WBC 9.9 103/ul Normal 4.0-11.0 [facility] Comment on above: Performed By: #### L IVER, LDH, BMP #### [facility] [address] [place] [address] ABD/PELV W CONon [...] CAROLYN WALSH Date: 2022-02-03 12:14 Normal [facility] Covid-19 PCR ([facility])on 01-16 SARS-CoV-2 (COVID-19) RNA JORGE LUIS+probe Ql (Unsp spec) Not detected Normal NOT DETECTED [facility] Comment on above: Result Comment: When diagnostic [...] for this test is supported by the [place] of Health and Human Service's declaration that [...] By: #### L IVER, LDH, BMP #### [facility] [address] [place] [address] [id number] [address] Esthela Stevens ER URINE PROFILEon 2 Bilirubin Ql (U) Negative Normal NEGATIVE [facility] Comment on above: Performed By: #### E RUMAKENZIE Quarles #### [facility] [address] [place] [address] Dr. Esthela Stevens Clarity (U) CLEAR Normal CLEAR [facility] Comment on above: Performed By: #### ERUM WALLACERO #### [facility] [address] [place] [address] Dr. Esthela Stevens Color (U) LT. YELLOW Normal YELLOW [facility] Comment on above: Performed By: #### ERUM WALLACERO #### [facility] [address] [place] [address] Dr. Esthela ARGUELLES A micrscopic examination will be performed if indicated. Normal [facility] Comment on above: Performed By: #### ERUM WALLACERO #### [facility] [address] [place] [address] Dr. Esthela Stevens Glucose Ql (U) Negative Normal NEGATIVE [facility] Comment on above: Performed By: #### ERUM WALLACERO #### [facility] [address] [place] [address] Dr. Esthela Stevens Hemoglobin Ql (U) Negative Normal NEGATIVE [facility] Comment on above: Performed By: #### ERUM WALLACERO #### [facility] [address] [place] [address] Dr. Esthela Stevens Ketones Ql (U) Negative Normal NEGATIVE [facility] Comment on above: Performed By: #### MERISSA WALLACEICRO #### [facility] [address] [place] [address] Dr. Esthela Setvens LEUKOCYTES SMALL Abnormal NEGATIVE [facility] Comment on above: Performed By: #### MERISSA WALLACEICRO #### [facility] [address] [place] [address] Dr. Esthela Stevens Nitrite Ql (U) Negative Normal NEGATIVE [facility] Comment on above: Performed By: #### Toñito SANCHEZ UMICRO #### [facility] [address] [place] [address] Dr. Esthela Stevens pH (U) 7.0 [pH] Normal 5-9 [facility] Comment on above: Performed By: #### Toñito SANCHEZ, UMICRO #### [facility] [address] [place] [address] Dr. Esthela Stevens SPEC GRAVITY 1.015 Normal 1.005-<=1.025 [facility] Comment on above: Performed By: #### E LAURA, UMICRO #### [facility] [address] [place] [address] Dr. Esthela Stevens UA PROTEIN Negative Normal NEGATIVE/ TRACE [facility] Comment on above: Performed By: #### E LAURA, UMICRO #### [facility] [address] [place] [address] Dr. Esthela Stevens UR MICRO IND INDICATED Normal [facility] Comment on above: Performed By: #### Toñito SANCHEZ UMICRO #### [facility] [address] [place] [address] Dr. Esthela Stevens Urobilinogen Qn (U) 0.2 {Emeka'U}/dL Normal 0.2 - 1. 0 [facility] Comment on above: Performed By: #### Toñito SANCHEZ, ICRO #### [facility] [address] [place] [address] Dr. Esthela Stevens LACTATE/LACTIC ACIDon 2021 Lactate [Moles/Vol] 1.3 mmol/L Normal 0.4-1.9 [facility] Comment on above: Performed By: #### P REG #### [facility] [address] [place] [address] Dr. Esthela Stevens LIPASEon 02-03-2022 Lipase [Catalytic activity/Vol] 58.0 U/L Critically low 73.0-393.0 [facility] Comment on above: Performed By: #### L IPA, CMP #### [facility] [address] [place] [address] Dr. Esthela Stevens PREG HCG QUALon 02-03-2022 , QUAL Negative Normal NEGATIVE [facility] Comment on above: Performed By: #### L IVER, LDH, BMP #### [facility] [address] [place] [address] Dr. Esthela Stevens PROF 14(COMP METB)on 022 Albumin [Mass/Vol] 3.8 g/dL Normal 3.4-5.0 [facility] Comment on above: Performed By: #### L IPA, CMP #### [facility] [address] [place] [address] Dr. Esthela Stevens Albumin/Globulin [Mass ratio] 1.0 {ratio} Normal [facility] Comment on above: Performed By: #### L IPA, CMP #### [facility] [address] [address] [address] Esthela Stevens ALP [Catalytic activity/Vol] 75 U/L Normal 46-116 [facility] Comment on above: Performed By: #### L IPA, CMP #### [facility] [address] [place] [address] Dr. Esthela Stevens ALT [Catalytic activity/Vol] 37 U/L Normal 14-59 [facility] Comment on above: Performed By: #### L IPA, CMP #### [facility] [address] [place] [address] Dr. Esthela Stevens Anion gap [Moles/Vol] 14.0 mmol/L Normal [facility] Comment on above: Performed By: #### L IPA, CMP #### [facility] [address] [place] [address] Dr. Esthela Stevens AST [Catalytic activity/Vol] 14 U/L Critically low 15-37 [facility] Comment on above: Performed By: #### L IPA, CMP #### [facility] [address] [address] [address] Esthela Stevens Bilirubin [Mass/Vol] 0.2 mg/dL Normal 0.2-1.0 [facility] Comment on above: Performed By: #### L IPA, CMP #### [facility] [address] [place] [address] Dr. Esthela Stevens Calcium [Mass/Vol] 8.9 mg/dL Normal 8.5-10.1 [facility] Comment on above: Performed By: #### L IPA, CMP #### [facility] [address] [place] [address] Dr. Esthela Stevens Chloride [Moles/Vol] 103 mmol/L Normal 98-107 [facility] Comment on above: Performed By: #### L IPA, CMP #### [facility] [address] [place] [address] Dr. Esthela Stevens CO2 [Moles/Vol] 25.2 mmol/L Normal 21.0-32.0 [facility] Comment on above: Performed By: #### L IPA, CMP #### [facility] [address] [place] [address] Dr. Esthela Stevens Creatinine [Mass/Vol] 0.72 mg/dL Normal 0.55-1.02 [facility] Comment on above: Performed By: #### L IPA, CMP #### [facility] [address] [place] [address] Dr. Esthela Stevens EGFR-AF NEW ZEALANDER >60 Normal >=60 [facility] Comment on above: Performed By: #### L IPA, CMP #### [facility] [address] [place] [address] Dr. Esthela Stevens EGFR-NON AF [place]EALANDER >60 Normal >=60 [facility] Comment on above: Performed By: #### L IPA, CMP #### [facility] [address] [place] [address] Dr. Esthela Stevens Globulin (S) [Mass/Vol] 3.7 g/dL Normal [facility] Comment on above: Performed By: #### L IPA, CMP #### [facility] [address] [place] [address] Dr. Esthela Stevens Glucose [Mass/Vol] 101 mg/dL Normal 74-106 [facility] Comment on above: Performed By: #### L IPA, CMP #### [facility] [address] [place] [address] Dr. Esthela Stevens Potassium [Moles/Vol] 4.2 mmol/L Normal 3.5-5.1 [facility] Comment on above: Performed By: #### L IPA, CMP #### [facility] [address] [place] [address] Dr. Esthela Stevens Protein [Mass/Vol] 7.5 g/dL Normal 6.4-8.2 [facility] Comment on above: Performed By: #### L IPA, CMP #### [facility] [address] [place] [address] Dr. Esthela Stevens Sodium [Moles/Vol] 138 mmol/L Normal 136-145 [facility] Comment on above: Performed By: #### L IPA, CMP #### [facility] [address] [place] [address] Dr. Esthela Stevens Urea nitrogen [Mass/Vol] 11.0 mg/dL Normal 7.0-18.0 [facility] Comment on above: Performed By: #### L IPA, CMP #### [facility] [address] [place] [address] Dr. Esthela Stevens Urea nitrogen/Creatinine [Mass ratio] 15.3 mg/mg Normal [facility] Comment on above: Performed By: #### L IPA, CMP #### [facility] [address] [place] [address] Dr. Esthela Stevens URINE MICROSCOPIC ONLYon BACTERIA NONE SEEN Normal NONE SEEN [facility] Comment on above: Performed By: #### Toñito SANCHEZ UMICRO #### [facility] [address] [place] [address] Dr. Esthela Stevens Bacteria identified Cx Nom (U) NOT INDICATED Normal [facility] Comment on above: Performed By: #### Toñito SANCHEZ UMICRO #### [facility] [address] [place] [address] Dr. Esthela Stevens CAST NONE SEEN Normal NONE SEEN [facility] Comment on above: Performed By: #### E RUWillam UMICRO #### [facility] [address] [place] [address] Dr. Esthela Stevens Crystals LM Nom (Urine sed) NONE SEEN Normal NONE SEEN [facility] Comment on above: Performed By: #### E RUR UMICRO #### [facility] [address] [place] [address] Dr. Esthela Stevens Epithelial cells LM Ql (Urine sed) FEW Abnormal NONE SEEN /RARE [facility] Comment on above: Performed By: #### E RUR, UMICRO #### [facility] [address] [address] [address] Esthela Stevens MUCOUS NONE SEEN Normal NONE SEEN [facility] Comment on above: Performed By: #### E RUR, UMICRO #### [facility] [address] [address] [address] Esthela Stevens RBC 0-2 Normal 0-2 [facility] Comment on above: Performed By: #### E RUR, UMICRO #### [facility] [address] [address] [address] Esthela Stevens WBC 2-5 Abnormal NONE SEEN [facility] Comment on above: Performed By: #### E RUR, UMICRO #### [facility] [address] [address] [address] Esthela Stevens Test, Urineon Beta HCG ( test) Ql (U) Negative [employer] Other Urinalysis - AUTOMATEDon Appearance (U) clear [employer] Other Bilirubin Ql (U) Negative [employer] Other Color (U) yellow [employer] Other Glucose Ql (U) Negative [employer] Other Hemoglobin Ql (U) Negative [employer] Other Ketones Ql (U) 15 [employer] Other Leukocyte esterase Test strip Ql (U) Negative [employer] Other Nitrite Ql (U) Negative [employer] Other pH (U) 7.0 [pH] [employer] Other Protein Ql (U) Negative [employer] Other Specific gravity (U) [Rel density] 1.020 [employer] Other Urobilinogen (U) [Mass/Vol] 0.2 mg/dL [employer] Other Urinalysis - AUTOMATED [employer] Other Coding Summary.on 02-18-2021 Coding Summary. CD:[id number] G h0bWw+PGhlYWQ+TA3KZJZ vO32ciCJuiH2VK2tCKH6X CMOPVPKSRJ4KAU4znHX3Z LkgZ8QtefJo DpeeiHYvCE16PTw6UVP0n CgzJHjlxW9atNDfP8n1Ge YlNR77gP61AUfdJWQxTnN 3LjZpbjsgbWFy K4lkMqRshKHyYpr+PHRhY mxlIHdpZHRoPScxMDAlJy LzhIboMH9gIw7eOJOvCUW vbGxhcHNlOiBj y2veHUIxBBqwNH3gbMqwM 9CueRZ3TRLuy1c0Cq81iJ I+UQQgYHT5nGxvIMpie34 4TiIvw3ltYWY8 wCOgYNsqOZI9I55yu3O2L BGvLQRxQPR1rMG5oM5xrR irtbedJ3BssTZrRrQ7SVV 2pYTckS0yhQks mkshtC5zAyy+I60CEQ6EM JAYSW0KLrl4R7QgYmkmdY I+MG60SMFrDN61xCEkqUL ei5oqoWz6BrEc GAHyKAE5gUfvOFlxr9ClV BYtJ08cvCZtj8X3SXCyhV wbyFLuGnNgkXN1nR5pPDe igzlcn1zydlpo Fcory4vxov71sP83W26bT XzhPKZgIJJ8PATuFFAarQ vxbk5imL1oXe7+OGrak6u ht2rgoTs8PzGo DGHmyuXvuGegNDL1c0YuD o90H4VrjHafe0FkZwy0dz 67fJDfs7M6qII3EJkvMCC erB1sPWxnRdI3 QAEqVpScoP96tSEcABlzM h1xnRabcPlaEG1cJXSjtb dqPIIxuQ3qJVCoiMQkmSm uTE0bGWXmdgpy a694InNcZGQ8QIHovXVjM 6AgzF8dSdQaEFUiCCYsD7 IujZUjIQbwF871GPvkNsV 7WLGyjpWyL4Xx AJVdsNvbPpM2n2L0Bn6Ca 5FudwpuYLM8BLgfJAY7Ho SpJzShAdJ6H5HeIar0BUG vwMloOH2yG2Rg IPJeikbpfzltrKF5JZJjF NJinX73aQLrJMkhQu7iu3 O3u703SSHxHSHsgZ76Tv6 udDogMTBwdCBU kS5pirfcc9iksrabBqVuT EBrIWw1CDv4MLHbrZjeDd FvXZG9TsR5GPV3qYCngX1 hsVzabqohpI3z Oyc+X27pqB5hHEM2WGG0v mteDMYwkrSrKE14NI48B4 RyPjwvdGFibGU+PGRpdiB bpQjuEC9dMqGl y1chh9SjPDryM5IpAALnI RxkCpl6IDXxKXT3gRO6fE 6gVGZaWUiqb7X9gJK5Q9U ubzVtrx4ec8oe WAJvKXlfX27hsMPxk2Q9E YSeyWC0CCSorNyxNgOgvH 93Oyc+PPDhiOkes6RlHtd pm7hre8aytKi4 TaFuEWFfndHblTytXMP7q 7QwHx39B92iSKacOJBdKO ChEPLvLZSbiDexrg5ejR5 wIi8+PGNvbCB3 gUX0xY4pKNTkKcW9ODivY 488ZgTebGAyItzcm4gss5 sdvVt3LeFtLVFnwuPiaSq lURK1g0JzYp73 K52bUEsnAKFhJWHwYDIlS SSsoJedmy6ynY5iEw0+PC 8xv9wize15kP64bPK+PHR aVOX3rUakLJoi BIPwfT0vZIgdEeJ7SBOyA cUesU95sNJcSOacBu0ycH tsaFrtHT9fBVJflnffu00 3CgDbk0qwLGPm lEBgMJtdSQM5L03ok9K2G UZlZZNeZTX3tNQ0yK3rkM lnbjogbGVmdDsgdmVydGl hGWveAExlF715 IHRvcDsnPlBhdGllbnQgT sCcQFw5F0BtRyg8SSWcuP rxJU9hcKVkGZalVi7pnQw lxOltLU5yPSTc weupj731ErJzy6ilUKTdj CUaKIyaJTI4Z77ll1Y1EP McYUUiQDC8aVA3eW6qqLm nbjogbGVmdDsg zrLmlYcvDKeuBZwnB638T HRvcDsnPkJpcnRoIERhdG F5YI68AQ21pWQey9K2iOZ 6K1WkWBWytwxw cqcbzLM9ZLGdQLHytX66N h7keTknYw7dHGZuEFF6UQ BcxHWqV5CkxQ3pXfEvHCJ dVBAfF9AnqHCw GFepR902DHdpMmY1HNGkz uPyZ2AwGAWatHutNpH7x2 P0Dj6NL0S8OL27RK00kIT yd9S5xIG1U4Yp RZGrinmtmsblxKD2GUAtD RLtxS50Ow1pgNfcWm6fKY CpHWF8TRQgwTRmA6UzhO2 yOiAjMDAwMDAw F1VqqBDnTSmzD740BKvaL bV7AHLnrtVzG0BoDQBrnH irHgR5m1U6Ca4CBYl1RA6 0ZZ94kQUyn9D1 zOK2W0MqIKIvmhhlagcbn HP5EGUiVYJfaX71Ao4acZ hhCm5eQCJpEUD2ZTQkbKU fA5AwaX5wLrRz EDGkSICgI3LzrXIvKJxnE 894ZLbmVtM8BFBfbdAkO1 BcWTPobIwiCkO0g8Q8Lg5 HIPQdAO32EPH0 qZQ8XF68ZA41D4MoBdkap GFibGU+PHRhYmxlIHdpZH RoPScxMDAlJyBzdHlsZT0 aKg9vOAAgPWZm mJplwJTxXlQok7huKCRmO JnpVC2wbUjjL6WagXG5HC Sju5h4Ya24Y98oP4AfqRC +DVEnlBP8yFR1 uG1fBtHvYtC7VLpcX837K xDxuWYsQeseg8ois0emyF x5QzZ1VZYrmtRlmWxvWHA 8c6IiMf15F58t IHdpZHRoPSIxNSUiIHZhb Yfyuo5hnW0bSi2+PGNvbC Q6vEA5iT9qBdBdKlR9KSu sT779NwRlmYQz Ahksp4mta3hqjQk9OcUrA SUxnnAwqIjyIVN7w8TqRn 93C9QhxKjtf3FgLfw5es3 5tLTtx3H2aPB3 E6DkQBZrhupkqOAvoCiwT R5kVJJnadwwNMWnpA4gLN JmH6l7EgQdIkR9URkdA8O ftuP0DQHzaZKk MPhqJQY8N89hq7K2KDDeS CXtCEL2cQC3vR5ayGvojh ogbGVmdDsgdmVydGljYWw mHXvoZ752GXWi zRgvTDGotG2iRWIxxOXlk ZwnUQ4nYIEkbefqSxoHTE oODhnmH0GSIMXZCNy9N0S bBub1NBHsrHuj DP4gwXDkODssEt6tzCnhn MxiXH6lGHSntrcfIZJydL 8oUOXytQIprYlxTZ6jFSG ukjsty026SeMz QKA9UEFeeKCmM1TmqU5fW rBnSCFyQJCoW5CjnPHuJQ wtN711GIdiDlQ1YDWwghS oT9YwIPDhiSpw QpS5u5L0Lt8kEG4xKV7pZ Ub8CQ98HV36pNSlh6S5gM C9R7VqYQOajjsdzwmlxLS 9BPIoVEKrgG06 dPSdJJinMe3qz2I8v595S WCmXVIesL12Kc1lfMhbBU CmySQAsT5oqqmwx2mfifo gIzAwMDAwMDt0 OGn6RNXkcDzaEaEqYZP9E tZ5EUP3gTCsuR5lxPopzl qyzZ7eIxe+MjMgWWVhcnM 1X3DtFei3PRRx jPddCC6vsPPiNAkwDf6qa ZcnxPimLE7hDAXuhzxeVS LebY2kFZFkfICiaDcfPF7 uFHUupsfex633 DpNzJFJ0CZVlvEObQ3Sul X7kShVjPRTyOWOkU9ZcvG KqPInbT796XXpzVrX9HRJ obcAcE6BkNBZj lTrzZrN0j7X2Mc7PQF2fq GV4U4HdSrv3CLZswDdqZY 3ueLGzTCncYq7jmMhusSt gUQ1eZXWafrnx HXXkeL7mJEYwqOKgdLdyZ Q9yHYAbpjxgu138EgLbBM L8INEigDPiN9DduK6wOoW vWEOlFKLjT6Ow fEPsGCxnE436NJdaVyX2N JMettOoC2VkBTUfwGvyHo L8m1S8Ac4ClTHqW6FxP4x 7L6MiRelgkUY+ LV03VAWmYQ03nUQpwYPyn 2phpLm4PnPcYARtYKF7uH umQVoyj8KdUQYrP03ykRE vc6J0REPpbWdg rSJdWlWbyOP8eI8yHCulv zzvl1uaecqgIzghx1abno 85gE64K16zFKskUCDeUPB zMCUiIHZhbGln nq1jrF3kDj1+VLYpsLL5m FE9vD6oUcJsPwS8MIdxB9 67WqMffOPdGbqya8jvt8j ldYh0JwClRHKu ruDhrQpwWIW7p4XoIc68X 29sIHdpZHRoPSIyMCUiIH QncQeivq4npS0vLk7+PC9 zt2lrjt23eG82 dHI+DLZxXIR2cNecTCawU POpaZ5nLIalHqV3JCClTz WuqK82gFZlKVuvIn7cnMc ylZdcAC1lFLHi kdulk825SpUeq0qyIPOro ZQmWBtrGSU6U45yr1M4WG JaZVWqEZD9uPZ5tR1xeDf nbjogbGVmdDsg ebRcgPokSMiqMJdvE078M KVvcEdgAyBwbHJkY4xyul PNQD7qEdsulDE+PHRkIHN 0eWxlPSdwYWRk xJ5jHUAiC9z6VaKcOmH0Y EbiB1FghnB4FMGccFOzMX StyTTOmJ8krcten9ahqdu gIzAwMDAwMDt0 CWe5IHQujDgdVmNqEWS1F sY2RQV9iSUjxU8tmRltrq hobW8pVxn+RklOOjwvdGQ +QQIfWZX8nQcw XQqpLTGjjU4mPBBsD9h1A rDkHqE7VVmnR1JvhbU9DS JnkESxCBPcmZQSvX6alri jh7rjwwrbZzGb SNDgMYd9BRb1GPHevNlrW sCuQOL8GzG2JGD2kMAycE 2dxCcrvarbjU2vMie+TVJ OOjwvdGQ+PHRk SRW2bPvlKZbzGKQljH7kG GQnL7d7YfEoEuK4KFszH4 TdfaG8USFcyPCnXMUtbTR WwQ9mwejbk9eo kzlhUbCmPUZkDLj4ZPt6J CGogNxcKqWsXZC4PiJ1KV P8aVJerB6rhMvatlrdqY6 wOyc+JDD1GVR2 DH25JV62C6GtQrtemHOdm +PHRhYmxlIHdpZHRoPS teHFOoNjQvtLsiRN4xEv4 yZGVyLWNvbGxh cHNl (more content not included)... [facility] Consent for Treatmenton Consent for Treatment [id number]#1 .00CD:127 [facility] Discharge Instructionson Discharge Instructions [id number]# 1.00CD:127 [facility] ED Clinical Summaryon 2020 ED Clinical Summary [place] [address] ED Clinical Summary Person Information Name: ZAINAB MCCLURE [place] Age: 25 Years : 1995 Sex: Female Language: Albanian PCP: ERIN SAMS CNP Marital Status: Single [...] 02/17/2021 11:52:53 02/17/2021 11:52:53 02/17/2021 11:52:53 ADDRESS: [address] [place] [phone] PHYS DOC NOTES: MEDICAL INFORMATION: Prescriptions Given: New Medications Printed Prescriptions lorazepam (Ativan 1 mg Tab) 1 Tablets By Mouth every 8 hours for 2 Days. Take one by mouth every eight hours as needed. Refills: 0. PATIENT EDUCATION INFORMATION: Instructions: Suicidal Feelings: How to Help Yourself; Managing Anxiety, Adult Follow up: With: Address: When: [facility] In 1 day 02/18/2021 With: Address: When: ERIN SAMS [address] [facility], [place] [address] [phone] Business (1) In 3 days DIAGNOSIS: Anxiety; Suicidal ideation [facility] ED Note-Physicianon 02-18-20 ED Note-Physician [...] Oral, q8hr Follow-up With When Contact Information [facility] In 1 day 02/18/2021 EDT Additional Instructions: ERIN SAMS In 3 days [address] [facility], [place] [address]- [phone] Business (1) Additional Instructions: Patient Education Suicidal Feelings: How to Help Yourself Managing Anxiety, Adult Problem List/Past Medical History Ongoing No qualifying data Historical No qualifying data Medications Inpatient No active inpatient medications Home No active home medications Allergies No Known Medication Allergies Lab Results No qualifying data available. Diagnostic Results No qualifying data available. [facility] Comment on above: Result Comment: Clarence newman Signed By: Vinicius Childers DO\.jim\Date and Time [...] are available in the [place]: ? [phone] ( ). ? 3-224-ZMEGRRI ( ). ? . This is a hotline for Belarusian speakers. ? . This is a hotline for TTY users. ? 5-530-8-U-RAMILA ( ). This is a hotline for lesbian, escobar, bisexual, transgender, or questioning youth. ? For a list of hotlines in [place], visit www.suicide.org/hotli eliseo/international/can brf-adgemuf-ptvvvzqi. html ? Contact a crisis center or [...] list of crisis centers in [place], visit: suicideprevention.ma How to help yourself feel better ? [...] even if you do not feel sociable. Lczk-cy-jhul conversation is best to help them understand [...] can help you feel better. ? Take mfyd-nrf-qrezkno and prescription medicines only as told by [...] Lifeline: www.suicideprevention lifeline.org ? Hopeline: www.hopeline.com ? [employer] for Suicide Prevention: www.afsp.org ? The Ramila Project (for lesbian, escobar, bisexual, transgender, or questioning youth): www.thetrevorproject. org Contact a health care provider if: ? You feel as though you are a burden to others. ? You feel agitated, angry, vengeful, or have extreme mood swings. ? You have withdrawn from family and friends. Get (more content not included)... [facility] ED Patient Summaryon 021 ED Patient Summary [address] [address] Patient Discharge Instructions Person Information Name: ZAINAB MCCLURE Age: 25 Years Arrival Date: 02/17/2021 09:42:11 Discharge Diagnosis: Anxiety; Suicidal ideation Primary Care Physician: ERIN SAMS CNP Provider Information Primary Provider: Vinicius Childers DO Advanced Med Surg Nurse:None The exam and treatment you received in the Emergency Department were for an urgent problem and are not intended as complete care. It is important that you follow up with a doctor, nurse practitioner, or physician?s licensed loan officer assistant for ongoing care. If your symptoms become worse or you do not improve as expected and you are unable to reach your usual health care provider, you should return to the Emergency Department. We are available 24 hours a day. ZAINAB MCCLURE has been given the following list of patient education materials, prescriptions and follow-up instructions: Follow-up Instructions: With: Address: When: [facility] In 1 day 02/18/2021 With: Address: When: ERIN SAMS [address] [place] [address] [phone] Business (1) In 3 days In the [...] opioids can be used to help relieve nzxjxzmd-hl-ftvnzr pain and are often prescribed following a [...] health care professio (more content not included)... [facility] Valuables Checkliston 2020 Valuables Checklist [id number]# 1.00CD:127 [facility] Vital Signs Date Time Vital Sign Value Performing Clinician Facility 02-01-2025 10:51-0400 Body mass index (BMI) [Ratio] 26.84 kg/m2 [employer] Work Phone: [facility] 02-01-2025 10:51-0400 Body weight 68.72 kg [employer] Work Phone: [facility] 02-01-2025 10:51-0400 Diastolic blood pressure 78 mm[Hg] [employer] Work Phone: [facility] 02-01-2025 10:51-0400 Systolic blood pressure 112 mm[Hg] [employer] Work Phone: [facility] 01-22-2025 09:58-0400 Diastolic blood pressure 86 mm[Hg] Yudelka Moralez DYNAMITE 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: [facility] 01-22-2025 09:58-0400 Systolic blood pressure 136 mm[Hg] Yudelka Moralez DYNAMITE 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: [facility] 12-21-2024 08:59-0400 Body mass index (BMI) [Ratio] 28.61 kg/m2 Nadege Pleitez MD Work Phone: [facility] 12-21-2024 08:59-0400 Body weight 68.67 kg Nadege Pleitez MD Work Phone: [facility] 12-21-2024 08:59-0400 Diastolic blood pressure 70 mm[Hg] Nadege Pleitez MD Work Phone: [facility] 12-21-2024 08:59-0400 Heart rate 88 /min Nadege Pleitez MD Work Phone: [facility] 12-21-2024 08:59-0400 Respiratory rate 16 /min Nadege Pleitez MD Work Phone: [facility] 12-21-2024 08:59-0400 SaO2% (BldA) [Mass fraction] 99 % Nadege Pleitez MD Work Phone: [facility] 12-21-2024 08:59-0400 Systolic blood pressure 108 mm[Hg] Nadege Pleitez MD Work Phone: [facility] 11-21-2024 11:19-0400 Body mass index (BMI) [Ratio] 26.66 kg/m2 Ron Alden DO Work Phone: [facility] 11-21-2024 11:19-0400 Body weight 68.27 kg Ron Alden DO Work Phone: [facility] 11-21-2024 11:19-0400 Diastolic blood pressure 78 mm[Hg] Ron Alden DO Work Phone: [facility] 11-21-2024 11:19-0400 Systolic blood pressure 110 mm[Hg] Ron Alden DO Work Phone: [facility] 11-13-2024 10:30-0400 Body mass index (BMI) [Ratio] 26.82 kg/m2 Ron Alden DO Work Phone: [facility] 11-13-2024 10:30-0400 Body weight 68.67 kg Ron Alden DO Work Phone: [facility] 11-13-2024 10:30-0400 Diastolic blood pressure 70 mm[Hg] Ron Alden DO Work Phone: [facility] 11-13-2024 10:30-0400 Systolic blood pressure 110 mm[Hg] Ron Ruano DO Work Phone: [facility] 11-09-2024 14:54-0400 Body height 154.[address] MD Work Phone: [facility] 11-09-2024 14:54-0400 Body mass index (BMI) [Ratio] 29.29 kg/m2 Roge Lane MD Work Phone: [facility] 11-09-2024 14:54-0400 Body temperature 98.91 [degF] Roge Lane MD Work Phone: [facility] 11-09-2024 14:54-0400 Body weight 70.[address] MD Work Phone: [facility] 11-09-2024 14:54-0400 Diastolic blood pressure 68 mm[Hg] Roge Lane MD Work Phone: [facility] 11-09-2024 14:54-0400 Heart rate 78 /min Roge Lane MD Work Phone: [facility] 11-09-2024 14:54-0400 Respiratory rate 14 /min Roge Lane MD Work Phone: [facility] 11-09-2024 14:54-0400 SaO2% (BldA) [Mass fraction] 97 % Roge Lane MD Work Phone: [facility] 11-09-2024 14:54-0400 Systolic blood pressure 129 mm[Hg] Roge Lane MD Work Phone: [facility] 09-18-2024 12:35-0500 Body mass index (BMI) [Ratio] 29.83 kg/m2 Yudelka Moralez DYNAMITE 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: [facility] 09-18-2024 12:35-0500 Body weight 71.67 kg Yudelka Moralez DYNAMITE 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: [facility] 09-18-2024 12:35-0500 Diastolic blood pressure 79 mm[Hg] Yudelka Moralez DYNAMITE 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: [facility] 09-18-2024 12:35-0500 Heart rate 82 /min Yudelka Moralez DYNAMITE 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: [facility] 09-18-2024 12:35-0500 Systolic blood pressure 127 mm[Hg] Yudelka Moralez DYNAMITE 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: [facility] 08-17-2024 13:52-0500 Body mass index (BMI) [Ratio] 28.36 kg/m2 Elayne SIMMONS Work Phone: [facility] 08-17-2024 13:52-0500 Body weight 72.63 kg Elayne SIMMONS Work Phone: [facility] 08-17-2024 13:52-0500 Diastolic blood pressure 68 mm[Hg] Elayne Bush PA Work Phone: [facility] 08-17-2024 13:52-0500 Systolic blood pressure 110 mm[Hg] Elayne Bush PA Work Phone: [facility] 04-13-2024 18:10-0400 Diastolic blood pressure 74 mm[Hg] Andreas Ortega MD, MPH Work Phone: [facility] 04-13-2024 18:10-0400 Heart rate 72 /min Andreas Ortega MD, MPH Work Phone: [facility] 04-13-2024 18:10-0400 Systolic blood pressure 133 mm[Hg] Andreas Ortega MD, MPH Work Phone: [facility] 04-13-2024 10:24-0400 Body height 154.9 cm Aurelianima Arcosoll DYNAMITE 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: [facility] 04-13-2024 10:24-0400 Body mass index (BMI) [Ratio] 29.66 kg/m2 Aurelia Saleh DYNAMITE 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: [facility] [employer] [facility] 04-13-2024 10:24-0400 Body weight 71.22 kg Aurelia Saleh DYNAMITE 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: [facility] [employer] [facility] 04-13-2024 10:24-0400 Diastolic blood pressure 60 mm[Hg] Aurelia Saleh DYNAMITE 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: [facility] 04-13-2024 10:24-0400 Heart rate 79 /min Aurelia Saleh DYNAM[employer] 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: [facility] 04-13-2024 10:24-0400 Systolic blood pressure 141 mm[Hg] Aurelia Saleh DYNAMITE 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: [facility] 02-07-2024 12:49-0400 Diastolic blood pressure 76 mm[Hg] Yudelka Moralez DYNAMITE 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: [facility] 02-07-2024 12:49-0400 Heart rate 58 /min Yudelka Moralez DYNAMITE 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: [facility] 02-07-2024 12:49-0400 Systolic blood pressure 124 mm[Hg] Yudelka Moralez DYNAMITE 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: [facility] 02-07-2024 08:42-0400 Blood Pressure Location Cortez Sarmini [facility] 02-07-2024 08:42-0400 Diastolic blood pressure 70 mm[Hg] Cortez Sarmini [facility] 02-07-2024 08:42-0400 Heart rate 70 /min Cortez Sarmini [facility] 02-07-2024 08:42-0400 Respiratory rate 18 /min Cortez Sarmini [facility] 02-07-2024 08:42-0400 Systolic blood pressure 116 mm[Hg] Diego Apodaca [facility] 01-06-2024 15:06-0400 Body height 155 cm Vinicius Gomes MD, PhD Work Phone: [facility] 01-06-2024 15:06-0400 Body mass index (BMI) [Ratio] 29.57 kg/m2 Vinicius Gomes MD, PhD Work Phone: [facility] 01-06-2024 15:06-0400 Body temperature 97.9 [degF] Vinicius Gomes MD, PhD Work Phone: [facility] 01-06-2024 15:06-0400 Body weight 71.03 kg Vinicius Gomes MD, PhD Work Phone: [facility] 01-06-2024 15:06-0400 Diastolic blood pressure 77 mm[Hg] Vinicius Gomes MD, PhD Work Phone: [facility] 01-06-2024 15:06-0400 Heart rate 65 /min Vinicius Gomes MD, PhD Work Phone: [facility] 01-06-2024 15:06-0400 Respiratory rate 16 /min Vinicius Gomes MD, PhD Work Phone: [facility] 01-06-2024 15:06-0400 SaO2% (BldA) [Mass fraction] 99 % Vinicius Gomes MD, PhD Work Phone: [facility] 01-06-2024 15:06-0400 Systolic blood pressure 125 mm[Hg] Vinicius Gomes MD, PhD Work Phone: [facility] 11-26-2023 09:32-0400 Body height 154.9 cm Dolores Johnson APRN-CUSTOMER SERVICE SECURITY OFFICER Work Phone: [facility] 11-26-2023 09:32-0400 Body mass index (BMI) [Ratio] 30.61 kg/m2 Dolores Johnson DYNAMITE 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: [facility] 11-26-2023 09:32-0400 Body weight 73.48 kg Dolores Johnson DYNAMITE 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: [facility] 11-26-2023 09:32-0400 Diastolic blood pressure 76 mm[Hg] Dolores Johnson DYNAMITE 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: [facility] 11-26-2023 09:32-0400 Heart rate 65 /min Dolores Johnson DYNAMITE 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: [facility] 11-26-2023 09:32-0400 Respiratory rate 16 /min Dolores Johnson DYNAMITE 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: [facility] 11-26-2023 09:32-0400 SaO2% (BldA) [Mass fraction] 98 % Dolores Johnson DYNAMITE 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: [facility] 11-26-2023 09:32-0400 Systolic blood pressure 110 mm[Hg] Dolores Johnson DYNAMITE 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: [facility] 08-24-2023 10:09-0500 Body mass index (BMI) [Ratio] 32.44 kg/m2 Ron Alden DO Work Phone: [facility] 08-24-2023 10:09-0500 Body weight 83.06 kg Ron Alden DO Work Phone: [facility] 08-24-2023 10:09-0500 Diastolic blood pressure 68 mm[Hg] Ron Alden DO Work Phone: [facility] 08-24-2023 10:09-0500 Systolic blood pressure 110 mm[Hg] Ron Alden DO Work Phone: [facility] 03-11-2023 09:53-0400 Body height 154.9 cm Daya Vigil DYNAMITE 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: [facility] 12-10-2022 12:07-0400 Body height 155.2 cm Archie Hugo MD, PhD Work Phone: [facility] Comment on above: without shoes 12-10-2022 12:07-0400 Body mass index (BMI) [Ratio] 30.64 kg/m2 Archie Hugo MD, PhD Work Phone: [facility] 12-10-2022 12:07-0400 Body temperature 97.81 [degF] Archie Hugo MD, PhD Work Phone: [facility] 12-10-2022 12:07-0400 Body weight 73.8 kg Archie Hugo MD, PhD Work Phone: [facility] Comment on above: without shoes 12-10-2022 12:07-0400 Diastolic blood pressure 72 mm[Hg] Archie Hugo MD, PhD Work Phone: [facility] 12-10-2022 12:07-0400 Heart rate 77 /min Archie Hugo MD, PhD Work Phone: [facility] 12-10-2022 12:07-0400 Respiratory rate 14 /min Archie Hugo MD, PhD Work Phone: [facility] 12-10-2022 12:07-0400 SaO2% (BldA) [Mass fraction] 99 % Archie Hugo MD, PhD Work Phone: [facility] Comment on above: room air 12-10-2022 12:07-0400 Systolic blood pressure 118 mm[Hg] Archie Hugo MD, PhD Work Phone: [facility] 10-22-2022 13:57-0400 Body height 154.9 cm Rebekah Suero MD Work Phone: [facility] 10-22-2022 13:57-0400 Body mass index (BMI) [Ratio] 30.33 kg/m2 Rebekah Suero MD Work Phone: [facility] 10-22-2022 13:57-0400 Body temperature 97.59 [degF] Rebekah Suero MD Work Phone: [facility] 10-22-2022 13:57-0400 Body weight 72.8 kg Rebekah Suero MD Work Phone: [facility] 10-22-2022 13:57-0400 Diastolic blood pressure 62 mm[Hg] Rebekah Suero MD Work Phone: [facility] 10-22-2022 13:57-0400 Heart rate 62 /min Rebekah Suero MD Work Phone: [facility] 10-22-2022 13:57-0400 Respiratory rate 20 /min Rebekah Suero MD Work Phone: [facility] 10-22-2022 13:57-0400 SaO2% (BldA) [Mass fraction] 99 % Rebekah Suero MD Work Phone: [facility] 10-22-2022 13:57-0400 Systolic blood pressure 119 mm[Hg] Rebekah Suero MD Work Phone: [facility] 10-22-2022 10:19-0400 Body height 157.5 cm Yudelka Moralez DYNAMITE 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: [facility] 10-22-2022 10:19-0400 Body mass index (BMI) [Ratio] 28.66 kg/m2 Yudelka Moralez DYNAMITE 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: [facility] 10-22-2022 10:19-0400 Body weight 71.1 kg Yudelka Moralez DYNAMITE 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: [facility] 10-22-2022 10:19-0400 Diastolic blood pressure 76 mm[Hg] Yudelka Moralez DYNAMITE 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: [facility] 10-22-2022 10:19-0400 Systolic blood pressure 126 mm[Hg] Yudelka Moralez DYNAMITE 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: [facility] 10-22-2022 07:38-0400 Body height 157.5 cm Yudelka Moralez DYNAMITE 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: [facility] 10-22-2022 07:38-0400 Diastolic blood pressure 76 mm[Hg] Yudelka Moralez DYNAMITE 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: [facility] 10-22-2022 07:38-0400 Heart rate 73 /min Yudelka Moralez DYNAMITE 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: [facility] 10-22-2022 07:38-0400 Systolic blood pressure 126 mm[Hg] Yudelka Moralez DYNAMITE 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: [facility] 10-07-2022 11:05-0400 Body height 157.5 cm Yudelka Moralez DYNAMITE 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: [facility] 10-07-2022 11:05-0400 Body mass index (BMI) [Ratio] 28.66 kg/m2 Yudelka Moralez DYNAMITE 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: [facility] 10-07-2022 11:05-0400 Body temperature 98.2 [degF] Yudelka Moralez DYNAMITE 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: [facility] 10-07-2022 11:05-0400 Body weight 71.08 kg Yudelka Moralez DYNAMITE 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: [facility] 10-07-2022 11:05-0400 Diastolic blood pressure 74 mm[Hg] Yudelka Moralez DYNAMITE 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: [facility] 10-07-2022 11:05-0400 Heart rate 81 /min Yudelka Kirt DYNAMITE 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: [facility] 10-07-2022 11:05-0400 Respiratory rate 16 /min Yudelka Moralez DYNAMITE 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: [facility] 10-07-2022 11:05-0400 SaO2% (BldA) [Mass fraction] 99 % Yudelka Kirt DYNAMITE 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: [facility] 10-07-2022 11:05-0400 Systolic blood pressure 120 mm[Hg] Yudelka Kirt DYNAMITE 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: [facility] 08-19-2022 15:43-0500 Diastolic blood pressure 88 mm[Hg] Andreas Ortega MD, MPH Work Phone: [facility] 08-19-2022 15:43-0500 Systolic blood pressure 117 mm[Hg] Andreas Ortega MD, MPH Work Phone: 2(887)982-269957 [place] [address] 07-08-2022 07:50-0500 Body height 157.5 cm Andreas Ortega MD, MPH Work Phone: [facility] 07-08-2022 07:50-0500 Body mass index (BMI) [Ratio] 28.73 kg/m2 Andreas Ortega MD, MPH Work Phone: 8(269)563-739957 [place] [address] 07-08-2022 07:50-0500 Body temperature 98.01 [degF] Andreas Ortega MD, MPH Work Phone: 1(435)[phone] [place] [address] 07-08-2022 07:50-0500 Body weight 71.26 kg Andreas Ortega MD, MPH Work Phone: [facility] 07-08-2022 07:50-0500 Diastolic blood pressure 77 mm[Hg] Andreas Ortega MD, MPH Work Phone: [facility] 07-08-2022 07:50-0500 Heart rate 73 /min Andreas Ortega MD, MPH Work Phone: [facility] 07-08-2022 07:50-0500 Respiratory rate 16 /min Andreas Ortega MD, MPH Work Phone: [facility] 07-08-2022 07:50-0500 SaO2% (BldA) [Mass fraction] 98 % Andreas Ortega MD, MPH Work Phone: [facility] 07-08-2022 07:50-0500 Systolic blood pressure 121 mm[Hg] Andreas Ortega MD, MPH Work Phone: [facility] 06-09-2022 13:10-0500 Body mass index (BMI) [Ratio] 29.3 kg/m2 Raina Bedford DYNAMITE 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: [facility] 06-09-2022 13:10-0500 Body temperature 98.6 [degF] [facility] Work Phone: [facility] 06-09-2022 13:10-0500 Body weight 72.67 kg Raina [facility] SECUR[facility] OFFIC[facility] Work Phone: [facility] 06-09-2022 13:10-0500 Diastolic blood pressure 60 mm[Hg] Raina Bedford DYNAMITE 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: [facility] 06-09-2022 13:10-0500 Heart rate 80 /min [facility] Work Phone: [facility] 06-09-2022 13:10-0500 Respiratory rate 16 /min [facility] SECUR[facility] OFFIC[facility] Work Phone: [facility] 06-09-2022 13:10-0500 SaO2% (BldA) [Mass fraction] 98 % Raina Gomes DYNAMITE 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: [facility] 06-09-2022 13:10-0500 Systolic blood pressure 110 mm[Hg] Raina Gomes DYNAMITE 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: [facility] 05-29-2022 07:32-0500 Body temperature 98.01 [degF] Archie Hugo MD, PhD Work Phone: [facility] 05-29-2022 07:32-0500 Diastolic blood pressure 64 mm[Hg] Archie Hugo MD, PhD Work Phone: [facility] 05-29-2022 07:32-0500 Heart rate 77 /min Archie Hugo MD, PhD Work Phone: [facility] 05-29-2022 07:32-0500 Respiratory rate 16 /min Archie Hugo MD, PhD Work Phone: [facility] 05-29-2022 07:32-0500 SaO2% (BldA) [Mass fraction] 99 % Archie Hugo MD, PhD Work Phone: [facility] 05-29-2022 07:32-0500 Systolic blood pressure 100 mm[Hg] Archie Hugo MD, PhD Work Phone: [facility] 05-22-2022 15:50-0400 Body height 157.5 cm Archie Hugo MD, PhD Work Phone: [facility] 05-22-2022 15:50-0400 Body mass index (BMI) [Ratio] 30.73 kg/m2 Archie Hugo MD, PhD Work Phone: [facility] 05-22-2022 15:50-0400 Body weight 76.2 kg Archie Hugo MD, PhD Work Phone: [facility] 03-31-2022 12:02-0400 Diastolic blood pressure 70 mm[Hg] Raina Eliseo DYNAMITE 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: [facility] 03-31-2022 12:02-0400 Systolic blood pressure 124 mm[Hg] Raina [facility] Work Phone: 9(315)498-422317 [address] 03-31-2022 11:53-0400 Body height 157.5 cm Raina [facility] Work Phone: 0(180)189-955817 [address] 03-19-2022 15:37-0400 Body height 158.3 cm Archie Hugo MD, PhD Work Phone: 0(137)864-972917 [address] 03-19-2022 15:37-0400 Body mass index (BMI) [Ratio] 30.63 kg/m2 Archie Hugo MD, PhD Work Phone: 5(809)928-921955 [place] [address] 03-19-2022 15:37-0400 Body temperature 97.5 [degF] Archie Hugo MD, PhD Work Phone: 4(012)918-857455 [place] [address] 03-19-2022 15:37-0400 Body weight 76.75 kg Archie Hugo MD, PhD Work Phone: 6(584)214-797555 [place] [address] 03-19-2022 15:37-0400 Diastolic blood pressure 84 mm[Hg] Archie Hugo MD, PhD Work Phone: 6(125)024-699155 [place] [address] 03-19-2022 15:37-0400 Heart rate 90 /min Archie Hugo MD, PhD Work Phone: 9(383)946-687055 [place] [address] 03-19-2022 15:37-0400 Respiratory rate 16 /min Archie Hugo MD, PhD Work Phone: 2(751)999-566255 [place] [address] 03-19-2022 15:37-0400 SaO2% (BldA) [Mass fraction] 98 % Archie Hugo MD, PhD Work Phone: 8(638)466-985817 [address] 03-19-2022 15:37-0400 Systolic blood pressure 128 mm[Hg] Archie Hugo MD, PhD Work Phone: [facility] 12-22-2021 18:05-0400 Body height 152.4 cm Ava Lundberg Other [facility] Other 12-22-2021 18:05-0400 Body mass index (BMI) [Ratio] 30.62 kg/m2 Ava Lundberg Other [facility] Other 12-22-2021 18:05-0400 Body temperature 99 [degF] Ava Lundberg Other [facility] Other 12-22-2021 18:05-0400 Body weight 71.12 kg Ava Lundberg Other [facility] Other 12-22-2021 18:05-0400 Diastolic blood pressure 89 mm[Hg] Ava Lundberg Other [facility] Other 12-22-2021 18:05-0400 Respiratory rate 16 /min Ava Lundberg Other [facility] Other 12-22-2021 18:05-0400 SaO2% (BldA) [Mass fraction] 99 % Ava Ludnberg Other [facility] Other 12-22-2021 18:05-0400 Systolic blood pressure 129 mm[Hg] Ava Lundberg Other [facility] Other Encounters Encounter Date Encounter Type Care Provider Facility Start: 04-19-2025 ambulatory Cortez Talal Sarmini [facility] Start: 03-08-2025 End: 03-08-2025 ambulatory Cortez Talal Sarmini [facility] Start: 03-08-2025 End: 03-08-2025 Patient encounter procedure Cortez Talal Sarmini [facility] Start: 02-07-2025 End: 02-07-2025 Telephone encounter Geneva Moncada RN Division of Medical Oncology Comment on above: Outside Medical Jose rds Request Start: 02-01-2025 End: 02-01-2025 ambulatory RON ALDEN Not Available Start: 02-01-2025 End: 02-01-2025 Office outpatient visit 15 minutes Ron Alden DO Work Phone: [facility] Comment on above: Pre-op examination; Pelvic pain; Pelvic congestion syndrome Start: 02-01-2025 End: 02-01-2025 Preprocedural examination done Ron Alden DO Work Phone: [facility] Start: 01-30-2025 ambulatory ERIN S LATRELL Facilit y:[facility] Start: 01-22-2025 End: 01-22-2025 Subsequent hospital visit by physician Yudelka Moralez APRN-TASH Work Phone: [facility] Comment on above: Arrived Start: 01-22-2025 ambulatory ERIN S LATRELL Facilit y:[facility] Start: 01-22-2025 End: 01-22-2025 Clinical Support Encounter Yudelka Moralez APRN-CUSTOMER SERVICE SECURITY OFFICER Work Phone: [facility] 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 Start: 12-21-2024 End: 12-21-2024 Office consultation new/estab patient 60 min Nadege Pleitez MD Work Phone: [facility] Comment on above: 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); HUNTER positive; Rosacea; Interstitial cystitis; Polyarthralgia; Fibromyalgia; Chronic abdominal pain Start: 12-21-2024 ambulatory ERIN S LATRELL Facilit y:[facility] Start: 12-21-2024 ambulatory ERIN S LATRELL Facilit y:[facility] Start: 11-21-2024 End: 11-21-2024 Office outpatient visit 15 minutes Ron Alden DO Work Phone: [facility] Comment on above: Pre-op examination; Pelvic congestion syndrome; Pelvic pain in female Start: 11-21-2024 End: 11-21-2024 Preprocedural examination done Ron Alden DO Work Phone: [facility] Start: 11-21-2024 End: 11-21-2024 ambulatory RON ALDEN Not Available Start: 11-13-2024 End: 11-13-2024 Bamboo flowsheet Ron Alden DO Work Phone: [facility] Start: 11-13-2024 End: 11-14-2024 Bamboo flowsheet Ron Alden DO Work Phone: [facility] Start: 11-13-2024 End: 11-14-2024 External Result Encounter Ron Alden DO Work Phone: [facility] External Department Unsolicited Start: 11-13-2024 End: 11-13-2024 Office outpatient visit 15 minutes Ron Alden DO Work Phone: [facility] Comment on above: Pelvic congestion sy ndrome; Pelvic pain in female Start: 11-13-2024 End: 11-13-2024 ambulatory RON ALDEN Not Available Start: 11-09-2024 End: 11-09-2024 Office outpatient new [address] MD Work Phone: [facility] Comment on above: Chronic migraine wit hout aura without status migrainosus, not intractable (Primary Dx) Start: 11-09-2024 ambulatory ERIN SAMS [facility] y:[facility] Start: 11-09-2024 End: 11-10-[address] MD Work Phone: [facility] Comment on above: Chronic migraine wit hout aura without status migrainosus, not intractable (Primary Dx) Start: 11-09-2024 End: 11-10-[address] MD Work Phone: [facility] Comment on above: Med Change Request Start: 11-02-2024 End: 11-02-2024 ambulatory Erin Sams Facility:[facility] Start: 11-02-2024 End: 11-02-2024 Departed Referred Erinnimo Sortomer DIRECTOR OF RELIGIOUS ACTIVITIES-C Work Phone: [facility] Start: 09-28-2024 End: 09-28-2024 Telephone encounter Kaylin Santos Division of Endocrin ology Comment on above: Appointment Start: 09-28-2024 ambulatory ERIN SAMS Facilit y:[facility] Start: 09-18-2024 End: 09-18-2024 Clinical Support Encounter Andreas Ortega MD, MPH Work Phone: [facility] Comment on above: 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; Primary malignant neuroendocrine tumor of appendix Start: 09-18-2024 End: 09-18-2024 Subsequent hospital visit by physician Yudelka Moralez APRN-CUSTOMER SERVICE SECURITY OFFICER Work Phone: [facility] Comment on above: Arrived Start: 09-18-2024 ambulatory ERIN SAMS Facilit y:[facility] Start: 08-17-2024 End: 08-17-2024 Bamboo flowsheet Elayne SIMMONS Work Phone: [facility] Start: 08-17-2024 End: 08-24-2024 Bamboo flowsheet Elayne SIMMONS Work Phone: [facility] Start: 08-17-2024 End: 08-24-2024 Clinisync Result Encounter Elayne SIMMONS Work Phone: [facility] External Department Unsolicited Start: 08-17-2024 End: 08-17-2024 Patient encounter procedure Elayne SIMMONS Work Phone: [facility] Work Phone: Start: 08-17-2024 End: 08-17-2024 Periodic preventive med est patient 18-39 yrs Elayne SIMMONS Work Phone: [facility] Comment on above: Well woman exam with routine gynecological exam; Menorrhagia with regular cycle Start: 08-17-2024 End: 08-17-2024 ambulatory ELAYNE BUSH Not Available Start: 05-15-2024 End: 05-15-2024 Telephone encounter Alena Beauchamp CMA [facility] Start: 05-10-2024 End: 05-10-2024 Orders Only Estela Sr [facility] Comment on above: Colitis; Black stools Start: 05-03-2024 End: 05-03-2024 ambulatory DIRECTOR OF RELIGIOUS ACTIVITIES-C Erin Sams Work Phone: [facility] Work Phone: Start: 05-03-2024 End: 05-03-2024 Departed Referred DIRECTOR OF RELIGIOUS ACTIVITIES-C Erin Sams Work Phone: [facility] Start: 04-25-2024 ambulatory ERIN SAMS Facilit y:[facility] Start: 04-25-2024 End: 04-25-2024 Subsequent hospital visit by physician Yudelka Moralez DYNAMITE 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: Imaging [facility] Comment on above: Arrived Start: 04-19-2024 ambulatory ERIN SAMS [facility] Start: 04-13-2024 ambulatory ANDREAS ORTEGA Facility: [facility] Start: 04-13-2024 End: 04-13-2024 Subsequent hospital visit by physician Andreas Ortega MD, MPH Work Phone: [facility] Comment on above: Arrived Start: 04-13-2024 End: 04-13-2024 Office outpatient visit 15 minutes Aurelia Saleh DYNAMITE 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: [facility] Comment on above: Colitis (Primary Dx) ; Black stools; Diarrhea, unspecified type; Low grade mucinous neoplasm of appendix; Neuroendocrine neoplasm of appendix Start: 04-13-2024 End: 04-13-2024 ambulatory AURELIARAQUEL SALEH [facility] Start: 04-12-2024 ambulatory ERIN SAMS Facilit y:[facility] Start: 04-11-2024 End: 04-11-2024 Telephone encounter Quin Kelly Division of Medical Oncology Comment on above: Change In Symptoms Start: 04-03-2024 End: 04-03-2024 Patient encounter procedure DIRECTOR OF RELIGIOUS ACTIVITIES-C Erin Latrell Work Phone: [facility] Start: 04-03-2024 End: 04-03-2024 ambulatory DIRECTOR OF RELIGIOUS ACTIVITIES-C Erin Foote Latrell Work Phone: [facility] Work Phone: Start: 03-13-2024 End: 03-13-2024 Telephone encounter Andreas Ortega MD, MPH Work Phone: Division of Medical Oncology Comment on above: Advice Only Start: 02-07-2024 End: 02-07-2024 Subsequent hospital visit by physician Yudelka Moralez DYNAMITE 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: Department of Radiology Comment on above: Arrived Start: 02-07-2024 End: 02-07-2024 Patient encounter procedure Diego Apodaca [facility] Start: 01-06-2024 End: 01-06-2024 Office outpatient visit 40 minutes Vinicius Gomes MD, PhD Work Phone: Division of Medical Oncology Comment on above: 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); Diarrhea, unspecified type; Primary malignant neuroendocrine tumor of appendix; Carcinoid syndrome; Tachycardia; SOB (shortness of breath) Start: 11-26-2023 End: 11-26-2023 Office outpatient new 45 minutes Dolores Johnson DYNAMITE 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: [facility] Comment on above: Elevated liver enzym es (Primary Dx) Start: 11-06-2023 End: 11-06-2023 Subsequent hospital visit by physician Andreas Ortega MD, MPH Work Phone: Imaging [facility] Comment on above: Arrived Start: 08-24-2023 End: 08-24-2023 flow sheet Ron Ruano DO Work Phone: [facility] Comment on above: Third trimester preg [place] Start: 03-11-2023 End: 03-11-2023 Clinical Support Encounter Archie Hugo MD, PhD Work Phone: [facility] 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 Start: 03-11-2023 End: 03-11-2023 Subsequent hospital visit by physician Daya Vigil DYNAMITE 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: [facility] Comment on above: Arrived Start: 12-10-2022 End: 12-10-2022 Office outpatient visit 15 minutes Archie Hugo MD, PhD Work Phone: Division of Surgical Oncology 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) Start: 11-30-2022 End: 11-30-2022 ambulatory ERIN LATRELL Facility:[facility] Start: 10-22-2022 End: 10-22-2022 Office outpatient new 60 minutes Rebekah Suero MD Work Phone: [facility] Comment on above: Fibromyalgia muscle pain (Primary Dx) Start: 10-22-2022 End: 10-22-2022 Subsequent hospital visit by physician Yudelka Moralez DYNAMITE 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: [facility] [place] Start: 10-22-2022 End: 10-22-2022 Subsequent hospital visit by physician Yudelka Moralez DYNAMITE 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: [facility] Comment on above: Arrived Start: 10-07-2022 End: 10-07-2022 Office outpatient visit 25 minutes Yudelka Moralez DYNAMITE 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: Division of Medical Oncology Comment on above: Carcinoid syndrome ( Primary Dx); SOB (shortness of breath); Tachycardia; Antinuclear antibody (HUNTER) titer greater than 1:80; Primary malignant neuroendocrine tumor of appendix Start: 10-06-2022 End: 10-06-2022 ambulatory ERIN LATRELL Facility:[facility] Start: 10-02-2022 End: 10-03-2022 ambulatory ERIN LATRELL Facility:[facility] Start: 09-30-2022 End: 10-01-[address] DOCTOR GREGORY Facility:[facility] Start: 09-23-2022 End: 09-24-2022 ambulatory ERIN LATRELL Facility:[facility] Start: 09-15-2022 End: 09-15-2022 ambulatory ERIN LATRELL Facility:[facility] Start: 09-09-2022 End: 09-09-[address] DOCTOR GREGORY Facility:[facility] Start: 09-04-2022 Encounter for genera l adult medical examination without abnormal findings ERIN SAMS [facility] Start: 08-31-2022 End: 09-01-2022 ambulatory ERIN SAMS Facility:[facility] Start: 08-31-2022 End: 09-01-2022 Encounter for general adult medical examination without abnormal findings ERIN LATRELL Facility:[facility] Start: 08-24-2022 End: 08-25-[address] DOCTOR GREGORY Facility:[facility] Start: 08-19-2022 End: 08-19-2022 Subsequent hospital visit by physician Andreas Ortega MD, MPH Work Phone: Department of Radiology Comment on above: Arrived Start: 08-19-2022 End: 08-19-2022 Subsequent hospital visit by physician Yudelka Moralez DYNAMITE 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: [facility] Comment on above: Arrived Start: 08-12-2022 [...] visit related to original px Raina Gomes DYNAMITE 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: Division of Surgical Oncology Comment [...] preprocedural laboratory examination DR TIMMY HALL . [facility] Start: 04-04-2022 End: 04-05-2022 ambulatory ERINNIMO SAMS Facility:[facility]1 Start: 04-04-2022 End: 04-05-2022 Encounter for preprocedural laboratory examination ERIN SAMS Facility:[facility] Start: 03-31-2022 End: 03-31-2022 Subsequent hospital visit by physician Raina Gomes APRN-CUSTOMER SERVICE SECURITY OFFICER Work Phone: [facility] [place] Comment on above: Arrived Start: 03-19-2022 End: [...] 12-22-2021 End: 12-22-2021 ambulatory Ava Lundberg Other [employer] Other Start: 12-22-2021 Office outpatient vi sit 15 minutes Ava Lundberg [facility] Procedures Date Procedure Procedure Detail Performing Clinician Start: 01-22-2025 CBC AND ELECTRONIC DIFF Any Cooley DYNAMITE 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: Start: 01-22-2025 Complete blood count with white cell differential, automated Any Cooley DYNAMITE 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: Start: 01-22-2025 Comprehensive metabo lic panel Any Cooley DYNAMITE 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: Start: 11-13-2024 URINARY TRACT INFECT ION (HTRX) Ron Ruano DO Work Phone: Start: 09-18-2024 CBC AND ELECTRONIC DIFF Yudelka Moralez DYNAMITE 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: Start: 09-18-2024 Complete blood count with white cell differential, automated Yudelka Kirt DYNAMITE 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: Start: 09-18-2024 Comprehensive metabo lic panel Yudelka Moralez DYNAMITE 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: Start: 08-17-2024 IGP,APTIMA HPV,AGE GDLN Elayne SIMMONS Work Phone: Start: 05-03-2024 EGD / COLONOSCOPY Norah emerita Saleh DYNAMITE PACKING MACHINE FE[employer] Work Phone: Start: 05-03-2024 Level i surg patholo gy gross examination only Not In System Ref Prov Start: 04-25-[address] atten uation skull base mid-thigh Yudelka Moralez DYNAMITE 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: Start: 04-18-2024 Colonoscopy Diego francisco Comment on above: 04/2024, normal. [facility] Start: 04-13-2024 Ct abdomen & pelvis w/o contrst 1/> body re Andreas Ortega MD, MPH Work Phone: Start: 04-03-2024 Ultrasonography of b ilateral breasts DIRECTOR OF RELIGIOUS ACTIVITIES-C Erin Sams Work Phone: Start: 03-11-2023 Mri abdomen w/o cont rast material Yudelka Kirt DYNAMITE 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: Start: 10-22-2022 Echo tthrc r-t 2d w/ wom-mode compl spec&colr d Yudelka Moralez DYNAMITE 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: Start: 10-22-2022 Ct soft tissue neck w/contrast material Yudelka Moralez DYNAMITE 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: Start: 10-22-2022 Ct thorax w/contrast material Yudelka Moralez DYNAMITE 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: Start: 10-07-2022 Natriuretic peptide Yudelka Moralez DYNAMITE 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: Start: 08-19-2022 Creatinine blood Marciano Ortega MD, MPH Work Phone: Start: 08-19-[address] atten uation skull base mid-thigh Yudelka Moralez DYNAMITE 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: Start: 05-29-2022 Assay of magnesium [...] 03-31-2022 Ct thorax w/contrast material Raina Gomes DYNAMITE 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: Start: 03-19-2022 CBC AND ELECTRONIC DIFF Raina Gomes DYNAMITE 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: Start: 03-19-2022 Complete blood count with white cell differential, automated Raina Gomes DYNAMITE 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: Start: 03-19-2022 Comprehensive metabo lic panel Raina Gomes DYNAMITE 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: Start: 02-18-2022 Adult depression scr eening assessment Aurelia Saleh DYNAMITE 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: Start: 02-03-2022 Laparoscopic appendectomy Diego Apodaca section Diego garcia Cholecystectomy Diego faith Plan of Treatment Date Care Activity Detail Author Start: 04-14-2025 Tobacco Screening Tobacco Screening [facility] Start: 04-13-2025 Adult BMI Screening Adult BMI Screening [facility] Start: 04-13-2025 Tobacco Screening Tobacco Screening [facility] Start: 03-19-2025 Influenza vaccination [facility] Start: 03-08-2025 End: 03-08-2025 Patient encounter procedure 03/08/2025 9:30 AM EDT Office Visit [facility] [address] [place] [phone] Elayne Bush PA [address] [facility] [place] [address] [facility] Start: 01-29-2025 End: 01-29-2025 Patient encounter procedure 01/29/2025 12:00 PM EDT Office Visit Division of Medical Oncology [address] [facility] 10th [place] [phone] Yudelka Moralez, DYNAMITE PACKING MACHINE FEEDER-CUSTOMER SERVICE SECURITY OFFICER [address] [place] [address] Division of Medical Oncology Start: 01-22-2025 End: 01-22-2025 Patient encounter procedure 01/22/2025 10:45 AM EDT Appointment Imaging at The [place] [address] [facility] 2nd [place] [phone] Yudelka Moralez, DYNAMITE PACKING MACHINE FEEDER-CUSTOMER SERVICE SECURITY OFFICER [address] [place], [place] [phone] Imaging at The [facility] Start: 01-22-2025 End: 01-22-2025 Clinical Support Encounter 01/22/2025 9:30 AM EDT Clinical Support Encounter Clinical Lab Isrrael Kang 1 [address] [facility] [address] [place] [address] Yudelka Moralez, DYNAMITE PACKING MACHINE FEEDER-CUSTOMER SERVICE SECURITY OFFICER [address] [place], [place] [phone] Clinical Lab Isrrael Kang 1 Start: 01-11-2025 End: 01-11-2025 Patient encounter procedure 01/11/2025 2:40 PM EDT Office Visit Division of Medical Oncology [address] [facility] [address] [place] [address] Vinicius Gomes MD, PhD [address] [facility] [address] [place] [address] Division of Medical Oncology Start: 12-21-2024 End: 12-21-2025 ALDOLASE [facility] Comment on above: Expected: 12/21/2024, Expires: Start: 12-21-2024 End: 12-21-2025 XR Cervical spine 4 Views XR SPINE CERVICAL 4-5 VIEWS Imaging Routine HUNTER positive Expected: 12/21/2024, Expires: 12/21/2025 [facility] Comment on above: Expected: 12/21/2024, Expires: Start: 12-21-2024 End: 12-21-2025 XR Wrist - left Views XR WRIST LEFT Imaging Routine HUNTER positive Expected: 12/21/2024, Expires: 12/21/2025 [facility] Comment on above: Expected: 12/21/2024, Expires: Start: 12-21-2024 End: 12-21-2024 Patient encounter procedure [facility] Start: 11-21-2024 End: 11-21-2024 Patient encounter procedure 11/21/2024 11:30 AM EDT Consult [facility] [address] [place] [address] Ron Ruano, DO [address] [place] [address] [facility] Start: 11-13-2024 End: 11-13-2024 Patient encounter procedure 11/13/2024 10:30 AM EDT Office Visit [facility] [address] [place] [address] Ron Ruano, DO [address] [facility] [address] [place], [place] [address] Arrived [facility] Comment on above: Arrived Start: 11-09-2024 End: 11-09-2024 Patient encounter procedure 11/09/2024 3:15 PM EDT Office Visit Neurological [facility] [address] 12th [place] [address] MD [address] [place] [address] [facility] Start: 11-02-2024 Bacteria identified in Urine by Culture Urine Culture [facility] Start: 11-02-2024 Urine culture [facility] Start: 09-28-2024 End: 09-28-2024 Patient encounter procedure Division of Medical Oncology Start: 09-12-2024 End: 09-12-2024 Patient encounter procedure 09/12/2024 2:20 PM EST Office Visit [facility] [address] [place] [address] Ron Ruano, DO [address] [place] [address] [facility] Start: 09-04-2024 End: 09-04-2024 Professional / ancillary services management 09/04/2024 2:30 PM EST Ancillary Procedure [facility] [address] [facility] [place] [address] [facility] Start: 08-17-2024 End: 08-17-2025 aPTT in Blood by Coagulation assay APTT Lab Routine Menorrhagia with regular cycle Expected: 08/17/2024 (Approximate), Expires: 08/17/2025 [facility] Comment on above: Expected: 08/17/2024 (Approximate), Expi res: 08/17/2025 Start: 08-17-2024 End: 08-17-2024 Patient encounter procedure 08/17/2024 2:00 PM EST Office Visit [facility] [address] [place] [address] Elayne Bush PA [address] [facility] [place] [address] Arrived [facility] Comment on above: Arrived Start: 08-17-2024 End: 08-17-2025 US Pelvis US Pelvis w/ TV Imaging Routine Menorrhagia with regular cycle Expected: 08/17/2024 (Approximate), Expires: 08/17/2025 [facility] Comment on above: Expected: 08/17/2024 (Approximate), Expi res: 08/17/2025 Start: 06-06-2024 End: 06-06-2024 Patient encounter procedure Division of Medical Oncology Start: 05-23-2024 End: 05-23-2024 Clinical Support Encounter Clinical Lab Isrrael Kang 1 Start: 04-25-2024 End: 04-25-2024 Patient encounter procedure 04/25/2024 9:00 AM EDT Appointment Imaging [facility] [address] [place] [phone] Yudelka Moralez, DYNAMITE PACKING MACHINE FEEDER-CUSTOMER SERVICE SECURITY OFFICER [address] [place], [place] [phone] Imaging [facility] Start: 04-13-2024 Subsequent hospital visit by physician 04/13/2024 7:00 PM EDT Hospital Encounter [facility] [place] [address] [place] [address] Andreas Ortega MD, MPH [address] [facility] [address] [place] [address] [facility] [place] Start: 04-12-2024 End: 04-12-2024 Patient encounter procedure 04/12/2024 9:30 AM EDT Appointment Imaging [facility] [address] [place] [address] Yudelka Moralez, DYNAMITE PACKING MACHINE FEEDER-CUSTOMER SERVICE SECURITY OFFICER [address] [place] [address] Imaging [facility] Start: 04-11-2024 End: 04-11-2025 CT Abdomen and Pelvis WO and W contrast IV CT ABDOMEN/PELVIS WITH AND WITHOUT CONTRAST Imaging STAT Primary malignant neuroendocrine tumor of appendix Expected: 04/11/2024, Expires: 04/11/2025 [facility] Comment on above: Expected: 04/11/2024, Expires: Start: 03-19-2024 COVID-19 Vaccine ( season) COVID-19 Vaccine ( season) [facility] Start: 03-19-2024 Influenza vaccination [facility] Start: 03-02-2024 End: 03-02-2024 Telemedicine consultation with patient 03/02/2024 9:00 AM EDT Telemedicine [facility] [address] [facility] [address] [place] [address] Dolores Johnson, DYNAMITE PACKING MACHINE FEEDER-CUSTOMER SERVICE SECURITY OFFICER [address] [place], [place] [phone] General [facility] Gastro[facility] Start: 02-10-2024 End: 02-10-2024 Patient encounter procedure 02/10/2024 11:00 AM EDT Office Visit Division of Medical Oncology [address] [facility] [address] [place] [phone] Andreas Ortega MD, MPH [address] [facility] [address] [place] [address] Division of Medical Oncology Start: 01-28-2024 End: 01-28-2024 Patient encounter procedure 01/28/2024 11:30 AM EDT Appointment Imaging [facility] [address] [facility] 1st [place] [phone] Yudelka Moralez, DYNAMITE PACKING MACHINE FEEDER-CUSTOMER SERVICE SECURITY OFFICER [address] [place] [address] Imaging [facility] Start: 01-28-2024 End: 01-28-2024 Clinical Support Encounter 01/28/2024 10:15 AM EDT Clinical Support Encounter Clinical Lab Isrrael Kang 1 [address] [place] 1st [place] [phone] Andreas Ortega MD, MPH [address] [place] 10[address] [place] [address] Clinical Lab Isrrael Kang 1 Start: 01-06-2024 End: 01-06-2024 Patient encounter procedure 01/06/2024 3:00 PM EDT Office Visit Division of Medical Oncology [address] [place] [address] [place] [address] Vinicius Gomes MD, PhD [address] [place] [address] [place] [address] Division of Medical Oncology Start: 12-14-2023 End: 12-14-2023 Patient encounter procedure 12/14/2023 12:30 PM EDT Office Visit Cardiology Isrrael [facility] [address] [place] [phone] Cheikh Coelho MD [address] [place] [address] Cardiology Isrrael [facility] 5 Start: 11-26-2023 End: 11-25-2024 [id number] PHENOTYPE [facility] Comment on above: Expected: 11/26/2023 (Approximate), Expi res: 11/25/2024 Start: 11-26-2023 End: 11-25-2024 HUNTER SCREEN IFA [facility] Comment on above: Expected: 11/26/2023 (Approximate), Expi res: 11/25/2024 Start: 11-26-2023 End: 11-25-2024 ANTI MITOCHONDRIAL ANTIBODY [facility] Comment on above: Expected: 11/26/2023 (Approximate), Expi res: 11/25/2024 Start: 11-26-2023 End: 11-25-2024 ANTI SMOOTH MUSCLE ANTIBODY [facility] Comment on above: Expected: 11/26/2023 (Approximate), Expi res: 11/25/2024 Start: 11-26-2023 End: 11-25-2024 MONOCLONAL PROT IMMUNO, SERUM [facility] Comment on above: Expected: 11/26/2023 (Approximate), Expi res: 11/25/2024 Start: 11-26-2023 End: 11-25-2024 T-TRANSGLUTAMINASE IGG/IGA, AB [facility] Comment on above: Expected: 11/26/2023, Expires: Start: 11-08-2023 End: 11-08-2023 Telemedicine consultation with patient 11/08/2023 11:00 AM EDT Telemedicine Division of Medical Oncology [address] [facility] [address] [place] [address] Yudelka Moralez, DYNAMITE PACKING MACHINE FEEDER-CUSTOMER SERVICE SECURITY OFFICER [address] [place] [address] Division of Medical Oncology Start: 10-28-2023 End: 10-28-2023 Patient encounter procedure 10/28/2023 1:00 PM EDT Office Visit [facility] [address] [place], [place] [phone] Kelton Cabrera Jr., MD [address] [place] [address] General and Gastrointestinal [facility] Start: 09-08-2023 End: 09-08-2023 Patient encounter procedure 09/08/2023 10:40 AM EST Routine [facility] [address] [facility] [place] [address] AldenRon, DO [address] [facility] [place] [address] [facility] Start: 06-17-2023 End: 06-17-2023 Patient encounter procedure 06/17/2023 1:30 PM EST Office Visit Division of Surgical Oncology [address] [place] [address] [place] [address] Archie Hugo MD, PhD [address] [place] [address] Division of Surgical Oncology Start: 06-17-2023 End: 06-17-2023 Patient encounter procedure 06/17/2023 12:20 PM EST Appointment Imaging [facility] [address] [place] [phone] Archie Hugo MD, PhD [address] [place] [address] Imaging [facility] Start: 03-19-2023 Influenza vaccination [facility] Start: 03-17-2023 End: 03-17-2023 Patient encounter procedure Division of Medical Oncology Start: 03-11-2023 End: 03-11-2023 Patient encounter procedure 03/11/2023 Office Visit Surgical Oncology Archie Hugo MD, PhD [address] [place] [phone] Division of Surgical Oncology Start: 03-11-2023 End: 03-11-2023 Patient encounter procedure Imaging [facility] Start: 02-18-2023 Depression Screening Depression Screening [facility] Start: 12-22-2022 End: 12-22-2022 Patient encounter procedure 12/22/2022 Office Visit Cardiovascular Medicine Marisela Velásquez, DYNAMITE PACKING MACHINE FEEDER-CUSTOMER SERVICE SECURITY OFFICER [address] [place] [phone] Cardiology [facility] 5 Start: 12-17-2022 End: 12-17-2022 Patient encounter procedure 12/17/2022 Office Visit Oncology Andreas Ortega MD, MPH [address] [address] Division of Medical Oncology Start: 12-10-2022 End: 12-11-2023 CT Abdomen and Pelvis W contrast IV CT ABDOMEN/PELVIS WITH CONTRAST Imaging Routine Primary malignant neuroendocrine tumor of appendix Expected: 12/10/2022, Expires: 12/11/2023 [facility] Comment on above: Expected: 12/10/2022, Expires: 4 Start: 12-10-2022 End: 12-11-2023 CT Chest W contrast IV CT CHEST WITH CONTRAST Imaging Routine Primary malignant neuroendocrine tumor of appendix Expected: 12/10/2022, Expires: 12/11/2023 [facility] Comment on above: Expected: 12/10/2022, Expires: 4 Start: 12-10-2022 End: 12-10-2022 Patient encounter procedure Imaging [facility] Start: 12-07-2022 End: 06-09-2023 CT Abdomen and Pelvis W contrast IV CT ABDOMEN/PELVIS WITH CONTRAST Imaging Routine Primary malignant neuroendocrine tumor of appendix Expected: 12/07/2022, Expires: 06/09/2023 [facility] Comment on above: Expected: 12/07/2022, Expires: 3 Start: 11-05-2022 End: 11-05-2022 Patient encounter procedure 11/05/2022 Office Visit Oncology Andreas Ortega MD, MPH [address] [address] Division of Medical Oncology Start: 10-27-2022 End: 10-27-2022 Patient encounter procedure 10/27/2022 Office Visit Cardiovascular Medicine Cheikh Coelho MD [address]TH [place] [address] [facility] Start: 10-27-2022 End: 10-27-2022 ambulatory 10/27/2022 Telemed Clin Support Genetics Herbie Erin L, [facility] [address] [place] [address] Division of Human Genetics Start: 10-21-2022 Subsequent hospital visit by physician 10/21/2022 Hospital Encounter Computerized Tomography Scan Yudelka Moralez, DYNAMITE PACKING MACHINE FEEDER-CUSTOMER SERVICE SECURITY OFFICER [address] [place] [address] [facility] Start: 10-21-2022 End: 10-21-2022 Patient encounter procedure 10/21/2022 Appointment Echocardiography Yudelka Moralez, DYNAMITE PACKING MACHINE FEEDER-CUSTOMER SERVICE SECURITY OFFICER [address] [place] [address] [facility] Start: 10-07-2022 End: 10-08-2023 CT Chest W contrast IV CT CHEST WITH CONTRAST Imaging Routine Carcinoid syndrome SOB (shortness of breath) Tachycardia Primary malignant neuroendocrine tumor of appendix Expected: 10/07/2022, Expires: 10/08/2023 [facility] Comment on above: Expected: 10/07/2022, Expires: Start: 10-07-2022 End: 10-08-2023 CT Neck W contrast IV CT NECK WITH CONTRAST Imaging Routine Primary malignant neuroendocrine tumor of appendix Expected: 10/07/2022, Expires: 10/08/2023 [facility] Comment on above: Expected: 10/07/2022, Expires: 4 Start: 08-26-2022 End: 08-26-2022 Telemedicine consultation with patient 08/26/2022 Telemedicine Oncology Andreas Ortega MD, MPH [address] [place] [address] [place] [phone] Division of Medical Oncology Start: 08-19-2022 End: 08-19-2022 Patient encounter procedure Imaging [facility] Start: 07-08-2022 End: 07-08-2023 Complete blood count with white cell differential, automated CBC, EDIF, PLATELET Lab Routine Primary malignant neuroendocrine tumor of appendix Expected: 07/08/2022, Expires: 07/08/2023 [facility] Comment on above: Expected: 07/08/2022, Expires: 3 Start: 07-08-2022 End: 07-08-2023 Comprehensive metabolic 2000 panel - Serum or Plasma COMPREHENSIVE METABOLIC PANEL Lab Routine Primary malignant neuroendocrine tumor of appendix Expected: 07/08/2022, Expires: 07/08/2023 [facility] Comment on above: Expected: 07/08/2022, Expires: 3 Start: 07-08-2022 End: 07-08-2023 CT Abdomen and Pelvis WO and W contrast IV CT ABDOMEN/PELVIS WITH AND WITHOUT CONTRAST Imaging Routine Primary malignant neuroendocrine tumor of appendix Expected: 07/08/2022, Expires: 07/08/2023 [facility] Comment on above: Expected: 07/08/2022, Expires: 3 Start: 07-08-2022 End: 07-08-2023 Lactate dehydrogenase [Enzymatic activity/volume] in Serum or Plasma LACTATE DEHYDROGENASE Lab Routine Primary malignant neuroendocrine tumor of appendix Expected: 07/08/2022, Expires: 07/08/2023 [facility] Comment on above: Expected: 07/08/2022, Expires: 3 Start: 07-08-2022 End: 07-08-2023 PT Skull base to mid-thigh NUC PET NEUROENDOCRINE Imaging Routine Primary malignant neuroendocrine tumor of appendix Expected: 07/08/2022, Expires: 07/08/2023 [facility] Comment on above: Expected: 07/08/2022, Expires: Start: 07-08-2022 End: 07-08-2022 Patient encounter procedure 07/08/2022 Office Visit Oncology Andreas Ortega MD, MPH [address] [place] [phone] Division of Medical Oncology Start: 07-06-2022 End: 07-06-2022 Telemedicine consultation with patient 07/06/2022 Telemedicine Surgical Oncology Raina Gomes, DYNAMITE PACKING MACHINE FEEDER-CUSTOMER SERVICE SECURITY OFFICER [address] [place], [place] [phone] [facility] Start: 06-09-2022 End: 06-09-2022 Patient encounter procedure 06/09/2022 Office Visit Surgical Oncology Raina Gomes, DYNAMITE PACKING MACHINE FEEDER-CUSTOMER SERVICE SECURITY OFFICER [address] [place], [place] [phone] Division of Surgical Oncology Start: 04-21-2022 End: 04-21-2022 Evaluation and management of inpatient 04/21/2022 Surgery Multispecialty Archie Hugo MD, PhD [address] [place] [address] COLECTOMY PARTIAL LAPAROSCOPIC CCCT PERIOP Comment on above: COLECTOMY PARTIAL LAPAROSCOPIC Start: 04-21-2022 End: 04-21-2022 Laparoscopy colectomy partial w/anastomosis COLECTOMY PARTIAL LAPAROSCOPIC Primary malignant neuroendocrine tumor of appendix 04/21/2022 7:15 AM EDT [facility] Start: 04-21-2022 Evaluation and management of inpatient 04/21/2022 Hospital Encounter Multispecialty Archie Hugo MD, PhD [address] [place] [address] Primary malignant neuroendocrine tumor of appendix CCCT PERIOP Comment on above: Primary malignant neuroendocrine tumor o f appendix Start: 03-19-2022 End: 03-19-2023 Colonoscopy flx dx w/collj spec when pfrmd DIAGNOSTIC COLONOSCOPY GI/Bronch STAT Primary malignant neuroendocrine tumor of appendix Expected: 03/19/2022, Expires: 03/19/2023 [facility] Comment on above: Expected: 03/19/2022, Expires: 3 Start: 03-19-2022 Influenza vaccination INFLUENZA VACCINE (#1) [facility] Start: 03-19-2022 End: 03-19-2023 TYPE AND SCREEN - PREADMISSION TYPE AND SCREEN - PREADMISSION Blood Bank Routine Primary malignant neuroendocrine tumor of appendix Expected: 03/19/2022, Expires: 03/19/2023 [facility] Work Phone: Comment on above: Expected: 03/19/2022, Expires: 3 Start: 07-10-2021 COVID-19 VACCINE (2 - Pfizer risk series) COVID-19 VACCINE (2 - Pfizer risk series) [facility] Start: 07-10-2021 COVID-19 VACCINE (2 - Pfizer series) COVID-19 VACCINE (2 - Pfizer series) [facility] Start: 08-14-2020 DTaP,Tdap and Td Vaccines (6 - Td or Tdap) DTaP,Tdap and Td Vaccines (6 - Td or Tdap) [facility] Start: 08-14-2020 Tetanus vaccination TETANUS [facility] Start: 2018 Screening for malignant neoplasm of cervix [facility] Start: 2016 PNEUMOCOCCAL VACCINE SERIES (1 of 2 - PCV) PNEUMOCOCCAL VACCINE SERIES (1 of 2 - PCV) [facility] Start: 2016 Third diphtheria, tetanus and acellular pertussis (DTaP) vaccination TDAP (ADULT) [facility] Start: 2016 Zoster vaccine hzv live for subcutaneous use ZOSTER (SHINGLES) VACCINE (1 of 2) [facility] Start: 2015 Adult BMI Follow Up Plan Adult BMI Follow Up Plan [facility] Start: 2015 Tetanus vaccination TETANUS [facility] Start: 2013 Screening for Chlamydia trachomatis CHLAMYDIA SCREEN [facility] Start: 2012 HIV screening HIV SCREENING DISCUSSION [facility] Start: 02-11-2011 Vaccination for human papillomavirus HPV VACCINE ADOL (2 - 2-dose series) [facility] Start: 09-11-2010 HPV VACCINE (2 - Risk 3-dose series) HPV VACCINE (2 - Risk 3-dose series) [facility] Start: 09-11-2010 Vaccination for human papillomavirus HPV VACCINE ADOL (2 - Risk 3-dose series) [facility] Start: 2008 Vaccination for human papillomavirus HPV VACCINE ADOL (1 - 2-dose series) [facility] Start: 2003 PNEUMOCOCCAL VACCINE SERIES (1 - PCV) PNEUMOCOCCAL VACCINE SERIES (1 - PCV) [facility] Start: 2003 PNEUMOCOCCAL VACCINE SERIES (1 of 2 - PCV) PNEUMOCOCCAL VACCINE SERIES (1 of 2 - PCV) [facility] Start: 1997 GONORRHEA SCREEN GONORRHEA SCREEN [facility] Start: 1997 Hepatitis C antibody, confirmatory test HEPATITIS C VIRUS SCREENING [facility] Start: 1997 Hepatitis C screening HEPATITIS C VIRUS SCREENING [facility] Start: 1997 Screening for Chlamydia trachomatis GONORRHEA SCREEN [facility] Bacteria identified in Urine by Culture Urine culture Microbiology Routine Pelvic pain in female Ordered: 11/13/2024 [facility] [employer] Work Phone: Comment on above: Ordered: 11/13/2024 CBC W Auto Different ial panel - Blood CBC and differential Lab Routine Menorrhagia with regular cycle Ordered: 08/17/2024 [facility] Comment on above: Ordered: 08/17/2024 CHROMOGRANIN A CHROMOGRANIN A L ab Routine Primary malignant neuroendocrine tumor of appendix 03/11/2023 11:44 AM EDT [facility] Work Phone: CHROMOGRANIN A CHROMOGRANIN A L ab Routine 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 09/18/2024 12:20 PM EST [facility] CHROMOGRANIN A CHROMOGRANIN A L ab Routine Primary malignant neuroendocrine tumor of appendix 01/22/2025 9:41 AM EDT [facility] Work Phone: End: 03-31-2022 CT Abdomen and Pelvis W contrast IV [facility] Work Phone: Comment on above: 1 Occurrences starting 03/31/2022 until 03/31/2022 End: 08-14-2022 CT Abdomen and Pelvis WO and W contrast IV [facility] Work Phone: Comment on above: 1 Occurrences starting 08/14/2022 until 08/14/2022 End: 11-06-2023 CT Abdomen and Pelvis WO and W contrast IV [facility] Comment on above: 1 Occurrences starting 11/06/2023 until 11/06/2023 End: 02-07-2024 CT Abdomen and Pelvis WO and W contrast IV [facility] Comment on above: 1 Occurrences starting 02/07/2024 until 02/07/2024 End: 09-18-2024 CT Abdomen and Pelvis WO and W contrast IV [facility] Comment on above: 1 Occurrences starting 09/18/2024 until 09/18/2024 End: 01-22-2025 CT Abdomen and Pelvis WO and W contrast IV [facility] Comment on above: 1 Occurrences starting 01/22/2025 until 01/22/2025 Cytology Cervical or vaginal smear or scraping study Pap Smear Pathology and Cytology Routine Well woman exam with routine gynecological exam Ordered: 08/17/2024 [facility] Work Phone: Comment on above: Ordered: 08/17/2024 Ecg routine ecg w/le ast 12 lds trcg only w/o i&r CT ECG, TRACING ONLY CT - OFFICE PERFORMED Routine Primary malignant neuroendocrine tumor of appendix Ordered: 03/19/2022 [facility] Comment on above: Ordered: 03/19/2022 Echocardiography ECHOCARDIOGRAM Echocardiography Routine Carcinoid syndrome SOB (shortness of breath) Tachycardia Ordered: 10/07/2022 [facility] Comment on above: Ordered: 10/07/2022 End: 04-13-2025 EGD / Colonoscopy EGD / Colonoscopy GI Routine Colitis Black stools 1 Occurrences starting 04/13/2024 until 04/13/2025 [employer] Work Phone: Comment on above: 1 Occurrences starting 04/13/2024 until 04/13/2025 hCG, quantitative, hCG, quantitative, Lab Routine Menorrhagia with regular cycle Ordered: 08/17/2024 [facility] Comment on above: Ordered: 08/17/2024 Hemoglobin A1c/Hemoglobin.total in Blood Hemoglobin A1c Lab Routine Menorrhagia with regular cycle Ordered: 08/17/2024 [facility] Comment on above: Ordered: 08/17/2024 Laparoscopy colectom y partial w/anastomosis COLECTOMY PARTIAL LAPAROSCOPIC Primary malignant neuroendocrine tumor of appendix [facility] End: 03-09-2023 Magnetic resonance imaging of abdomen and pelvis with contrast MRI ABDOMEN/PELVIS WITHOUT AND WITH CONTRAST Imaging Routine Primary malignant neuroendocrine tumor of appendix 1 Occurrences starting 03/09/2023 until 03/09/2023 [facility] Comment on above: 1 Occurrences starting 03/09/2023 until 03/09/2023 Prothrombin time (PT ) in Blood by Coagulation assay Protime-INR Lab Routine Menorrhagia with regular cycle Ordered: 08/17/2024 [facility] Comment on above: Ordered: 08/17/[address] STAPLE REM OVAL CT - OFFICE PERFORMED Routine Primary malignant neuroendocrine tumor of appendix Ordered: 06/09/2022 [facility] Comment on above: Ordered: 06/09/2022 SURG PATH REQUEST [facility] Comment on above: Release Upon Ordering for 1 Occurrences starting 05/22/2022, 1 completed Thyrotropin [Units/volume] in Serum or Plasma TSH Lab Routine Menorrhagia with regular cycle Ordered: 08/17/2024 [facility] Comment on above: Ordered: 08/17/2024 Thyroxine (T4) free [Mass/volume] in Serum or Plasma T4, free Lab Routine Menorrhagia with regular cycle Ordered: 08/17/2024 [facility] Comment on above: Ordered: 08/17/2024 TRANSIENT ELASTOGRAPHY TRANSIENT ELASTOGRAPHY GI/Bronch Routine Elevated liver enzymes Ordered: 11/26/2023 [facility] Comment on above: Ordered: 11/26/2023 Immunizations Immunization Date Immunization Notes Care Provider Fa cility 06-19-2021 SARS-CoV-2 (COVID-19 ) mRNA BNT-162b2 vax Cortez Sarmini [facility] Comment on above: Result Comment: 2023: TPVALL 04-28-2021 influenza virus vacc ine, unspecified formulation Raina Gomes DYNAM[employer] 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: [facility] Comment on above: Result Comment: 2023: NULL 08-28-2020 SARS-CoV-2 (COVID-19 ) mRNA-1273 vaccine Cortez Sarmini [facility] 07-31-2020 SARS-CoV-2 (COVID-19 ) mRNA-1273 vaccine Cortez Sarmini [facility] 08-14-2010 HPV, unspecified formulation Cortez Sarmini [facility] 08-14-2010 meningococcal ACWY vaccine, unspecified formulation Cortez Sarmini [facility] 08-14-2010 tetanus toxoid, redu shaheed diphtheria toxoid, and acellular pertussis vaccine, adsorbed Cortez Sarmini [facility] 04-03-2002 measles, mumps and rubella virus vaccine Cortez Sarmini [facility] 09-20-2000 DTaP, unspecified formulation Cortez Sarmini [facility] 09-20-2000 hepatitis B vaccine, pediatric or pediatric/adolescent dosage Cortez Sarmini [facility] 09-20-2000 Hib, unspecified formulation Cortez Sarmini [facility] 09-20-2000 measles, mumps and rubella virus vaccine Cortez Sarmini [facility] 09-20-2000 poliovirus vaccine, unspecified formulation Cortez Sarmini [facility] 1997 DTaP, unspecified formulation Cortez Sarmini [facility] 1997 Hib, unspecified formulation Cortez Sarmini [facility] 1997 poliovirus vaccine, unspecified formulation Cortez Sarmini [facility] 1997 DTaP, unspecified formulation Cortez Sarmini [facility] 1997 hepatitis B vaccine, pediatric or pediatric/adolescent dosage Cortez Sarmini [facility] 1997 Hib, unspecified formulation Cortez Sarmini [facility] 1997 poliovirus vaccine, unspecified formulation Cortez Sarmini [facility] 1997 hepatitis B vaccine, pediatric or pediatric/adolescent dosage Cortez Sarmini [facility] Payers Date Payer Category Payer Private Health Insurance [id number] 2024 Self-pay [id number] 2023 Managed Care (unspecified) [id number] [id number] 2021 Commercial Managed C are - PPO PARAMOUNT [id number]. [id number] 2021 Managed Care HMO (unspecified) [id number]. 2.7.3.999637.315 2021 Unknown PARAMOUNT NELIDA UNT PREFERRED PPO [id number] 2021-Present [phone] [place] [address] PPO [id number]. 2.7.3.607955.315 2021 Unknown 1.2.840.711722. 1.13.172. 2.7.3.020544.315 1997 Unknown [id number] 2.16.840.1.179892.3.579. 2.593 1997 Unknown [id number] 2.16.840.1.222398.3.579. 2.593 1997 Unknown [id number] 2.16.840.1.171519.3.579. 2.593 1997 Unknown [id number] 2.16.840.1.677419.3.579. 2.593 1997 Unknown [id number] 2.16.840.1.006045.3.579. 2.593 1997 Unknown [id number] 2.16.840.1.040998.3.579. 2.593 1997 Unknown [id number] 2.16.840.1.645630.3.579. 2.593 1997 Unknown [id number] 2.16.840.1.245711.3.579. 2.593 1997 Unknown [id number] 2.16.840.1.396244.3.579. 2.593 1997 Unknown [id number] 2.16.840.1.736433.3.579. 2.593 1997 Unknown [id number] 2.16.840.1.181388.3.579. 2.593 1997 Unknown [id number] 2.16.840.1.510946.3.579. 2.593 1997 Unknown [id number] 2.16.840.1.902946.3.579. 2.593 1997 Unknown [id number] 2.16.840.1.098377.3.579. 2.593 1997 Unknown [id number] 2.16.840.1.127155.3.579. 2.593 1997 Unknown [id number] 2.16.840.1.428003.3.579. 2.593 1997 Unknown [id number] 2.16.840.1.312800.3.579. 2.593 1997 Unknown [id number] 2.16.840.1.780377.3.579. 2.1286 1997 Unknown [id number] 2.16.840.1.647619.3.579. 2.1286 1997 Unknown [id number] 2.16.840.1.002218.3.579. 2.1286 1997 Unknown [id number] 2.16.840.1.475525.3.579. 2.1259 1997 Unknown [id number] 2.16.840.1.734758.3.579. 2.1259 1997 Unknown [id number] 2.16.840.1.050558.3.579. 2.1259 1997 Unknown [id number] 2.16.840.1.573157.3.579. 2.1259 1997 Unknown [id number] 2.16.840.1.576676.3.579. 2.594 1997 Unknown [id number] 2.16.840.1.023116.3.579. 2.594 1997 Unknown [id number] 2.16.840.1.882067.3.579. 2.594 1997 Unknown [id number] 2.16.840.1.850749.3.579. 2.594 1997 Unknown [id number] 2.16.840.1.020328.3.579. 2.594 1997 Unknown [id number] 2.16.840.1.286032.3.579. 2.594 1997 Unknown [id number] 2.16.840.1.750675.3.579. 2.594 1997 Unknown [id number] 2.16.840.1.793884.3.579. 2.594 1997 Unknown [id number] 2.16.840.1.151613.3.579. 2.594 1997 Unknown [id number] 2.16.840.1.573950.3.579. 2.594 1997 Unknown [id number] 2.16.840.1.594510.3.579. 2.594 1997 Unknown [id number] 2.16.840.1.092420.3.579. 2.594 1997 Unknown [id number] 2.16.840.1.089788.3.579. 2.594 1997 Unknown [id number] 2.16.840.1.703540.3.579. 2.727 1997 Unknown [id number] 2.16.840.1.043186.3.579. 2.727 1959 Unknown [id number] Unknown [id number] 2.16.840.1.885201.19 Unknown [id number] 2.16.840.1.667741.3.579. 2.531 Unknown [id number] 2.16.840.1.805976.3.579. 2.531 Unknown [id number] 2.16.840.1.381626.3.579. 2.531 Social History Date Type Detail Facility Unknown if ever smoked [employer] Other Start: 03-11-2023 End: 01-30-2025 Sex Assigned At [facility] Tobacco smoking stat us MIIS Tobacco smoking consumption unknown [facility] Work Phone: Start: 1995 Sex Assigned At Not on file [facility] Start: 03-19-2022 End: 03-08-2025 Tobacco smoking status [facility] Never smoked tobacco [facility] Start: 03-31-2022 End: 11-09-2024 Alcohol intake Ex-drinker (finding) [facility] Start: 03-19-2022 History SDOH Alcohol Comment last alchohol 2019; mixed drink rarely [facility] Start: 02-11-2022 End: 04-14-2022 Tobacco use and exposure Smokeless tobacco non-user [facility] Start: 05-12-2022 End: 08-19-2022 Exposure to SARS-CoV-2 (event) Not sure [facility] Start: 06-28-2022 End: 07-08-2022 Exposure to SARS-CoV-2 (event) Unable to assess [facility] Start: 03-11-2023 End: 01-30-2025 History of Social function [facility] Adolescent depressio n screening assessment 1 [facility] Start: 01-12-2023 [facility] Start: 1995 Sex Assigned At Female [facility] Start: 01-25-2023 Gender identity Identifies as female gender (finding) [facility] Start: 01-25-2023 Sexual orientation Heterosexual (finding) [facility] Do you belong to any clubs or organizations such as anabaptist groups, unions, fraternal or athletic groups, or school groups? No [facility] Are you now , , , , never or living with a partner? [facility] How often to you hav e a drink containing alcohol? Never [facility] How hard is it for y ou to pay for the very basics like food, housing, medical care, and heating Somewhat hard [facility] Do you feel stress - tense, restless, nervous, or anxious, or unable to sleep at night because your mind is troubled all the time - these days [OSQ] Very much [facility] Start: 02-18-2022 [facility] [employer] [facility] Start: 02-04-2022 End: 03-02-2022 Sex Female (finding) [facility] [employer] [facility] Start: 12-21-2024 Alcoholic beverage intake Lifetime non-drinker (finding) [facility] Sexual Orientation [facility] Goals Date Patient Goal Desired Activity /State Personal health goal Functional Status Date Assessment Result Facility 02-07-2024 Functional Status N/A [facility] 05-22-2022 Are you deaf, or do you have serious difficulty hearing No 05/22/2022 3:44 PM Yvrose Goodwin, RUPERT No [facility] 05-22-2022 Are you blind, or do you have serious difficulty seeing, even when wearing glasses No 05/22/2022 3:44 PM Yvrose Goodwin, RN No [facility] 05-22-2022 Do you have serious difficulty walking or climbing stairs No 05/22/2022 3:44 PM Yvrose Goodwin, RUPERT No [facility] 05-22-2022 Do you have difficul ty dressing or bathing No 05/22/2022 3:44 PM EDT Yvrose Chamberlain, RUPERT No [facility] 05-22-2022 Because of a physica l, mental, or emotional condition, do you have difficulty doing errands alone such as visiting a physician's office or shopping No 05/22/2022 3:44 PM EDT Yvrose Chamberlain RN No [facility] Mental Status Date Assessment Result Facility 05-22-2022 Because of a physica l, mental, or emotional condition, do you have serious difficulty concentrating, remembering, or making decisions No 05/22/2022 3:44 PM EDT Yvrose Chamberlain RN No [facility] Clinical Notes 12-22-2021 to 02-07-2025 Telephone Encounter - Geneva Moncada RN - 02/07/2025 9:34 AM EDTTelephone Encounter - Geneva Moncada RN - 02/07/2025 9:34 AM EDTTelephone Encounter - Geneva Moncada RN - 02/07/2025 8:52 AM EDT Note Date & Type Note Facility 02-07-2025 Telephone encounter Note Sent My Chart Message 02/07/25 asking patient if / when / where she had c-diff testing and hydrogen breath test done. [facility] 02-07-2025 Miscellaneous Notes Sent My Chart Message 02/07/25 asking patient if / when / where she had c-diff testing and hydrogen breath test done. ----- Message from RUPERT Bran sent at 01/31/2025 9:46 AM EDT ----- Regarding: c-diff and Hydrogen breath test Please f/up with pt to see if c-diff testing or hydrogen breath test have been completed locally in [place]. Orders sent via [employer] on 01/31 documented in this encounter [facility] 02-07-2025 Telephone encounter Note ----- Message from RUPERT Bran sent at 01/31/2025 9:46 AM EDT ----- Regarding: c-diff and Hydrogen breath test Please f/up with pt to see if c-diff testing or hydrogen breath test have been completed locally in [place]. Orders sent via [employer] on 01/31 [facility] 02-01-2025 History of Present illness Narrative Reason for Appointment: Patient ID: Zainab Swift is a 29 y.o. female who presents for Pre-op Visit Patient presents today for Pre Op appointment. Patient is scheduled to undergo Diagnostic Laparoscopy, possible DANA, possible FOE, possible BSO on 03-02-[address] Ruano at [facility]. MEDICATIONS Current Outpatient Medications Medication Instructions Acetaminophen [...] Vitals: Estimated body mass index is 26.66 kg/m as calculated from the following: Height [...] reviewed, and patient is to proceed to [facility] OR. Follow Up: Patient is to follow up between 1-2 weeks post operative to assess proper healing and recovery from procedure. Documented by Rhoda Ortega LPN on behalf of: Ron Ruano DO documented in this encounter [facility] 01-31-2025 Hospital Discharge instructions Follow Up Care 01/31/2025 15:59:02 With:Paulie DUPONT, JIAN Davis, [facility] Address: [address], [address] [facility] [address] [place] [address]- [phone] When:Within 2 Month(s) [facility] 12-21-2024 History of Present illness Narrative I have had the pleasure of seeing Ms. Zainab Swift [facility] today. Patient was referred by Any Cooley APRN-C* for evaluation of +HUNTER, has seen rheumatology in the past and would like to reestablish care Chief Complaint The patient is a 29 y.o. female who presents today for New Patient. History of Present Illness History of Present Illness The patient presents for evaluation of chronic fatigue, joint pain, back pain, facial flushing, dry mouth, and urinary symptoms. She reports experiencing chronic [...] upper back pain and general body aches. Poit-mdx-tycexzr medications provide some relief, but she has [...] vision, lasting a couple of hours. An java project manager diagnosed her with minor astigmatism but [...] alcohol, or use drugs. 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 FAMILY HISTORY Her mother was diagnosed [...] individuals is about 20%, but only a minority of these individuals will have a [...] managed to the successful mgmt of fibromyalgia (if patient does not suffer from mood disorder, they [...] patient education regarding fibromyalgia. Recommended utilization of [facility]'s Fibroguide (painCC [email or web address].com) and self-care modules. - Will defer medical management to the discretion of Dr Erin Sams. - XR WRIST LEFT; Future - XR [...] to follow the patient regarding general care, malignancy screening studies, preventative care that are appropriate for age and clinical status Patient will follow-up as needed Nadege Pleitez MD [employer] Department of Rheumatology and Immunology [facility] Records reviewed for today's visit included but was not limited to: [facility] in-house chart, laboratory and imaging results relevant to today's visit, senior erp consultant notes, [facility] (if [facility]). Total time spent for the visit included reviewing the patient's medical record prior to the visit with review of outside labs, imaging, and documentation from specialists and other physicians, performing a history and physical exam with the patient, counseling the patient, ordering and interpreting lab and imaging studies, ordering and managing prescription [...] 05/22/2022); colectomy partial open (Right, 05/22/2022); debulking intra-abdominal/pelvic/retroperit fleming w/ omenectomy & pelvic para-aortic lymphadenectomy (N/A, [...] product, and rizatriptan. documented in this encounter [facility] 12-21-2024 Instructions Nadege Pleitez MD - 12/21/2024 9:00 AM EDT [...] of associated comorbidities, obtaining social support, and cognitive-behavioral therapy/counseling. Despite the medical therapy available for [...] water aerobics, walking, cycling) and group programs (jared chi, yoga) Recommend mental health counseling, as the following psychologic variables are modifiable and can worsen the severity of FM symptoms: perfectionist/self-sacrificing personality traits, catastrophizing/negative beliefs, hypervigilance, preoccupation with [...] another condition Online resources for fibromyalgia include: [facility] - [email or web address].[email or web address] National Fibromyalgia Association - www.fmaware.org Fibromyalgia Care Society of [place] - fibro.org Cognitive Behavioral Therapy Resource - Offerum.au Advocacy Support Fibro - supportfibromyalgia.org documented in this encounter [facility] 11-21-2024 History of Present illness Narrative Reason for Appointment: Patient ID: Zainab Swift is a 29 y.o. female who presents for Pre-op Visit Patient presents today for Pre Op appointment. Patient is scheduled to undergo Diagnostic Laparoscopy, possible DANA, possible FOE, possible BSO on 12/15/[address] Ruano at [facility]. MEDICATIONS Current Outpatient Medications Medication Instructions Acetaminophen (TYLENOL EXTRA STRENGTH PO) 500 mg, Daily FLUoxetine (PROZAC) 20 mg, Oral, Daily lamoTRIgine (LAMICTAL) 25 mg, Oral, Daily ALLERGIES Allergies Allergen Reactions Gabapentin Diarrhea and Nausea Only Other Reaction(s): nausea, diarrhea Metronidazole GI intolerance and Nausea Only Other Reaction(s): GI Disturbance PROBLEMS Active Ambulatory Problems Diagnosis Date Noted No Active Ambulatory Problems Resolved Ambulatory Problems Diagnosis Date Noted No Resolved Ambulatory Problems Past Medical History: Diagnosis Date Anxiety Cancer (CMS/HCC) Depression (CMS/HCC) Personality disorder (CMS/HCC) HISTORY PAST MEDICAL HISTORY SOCIAL HISTORY Past Medical History: Diagnosis Date Anxiety Cancer (CMS/HCC) neuro-endocrinology cancer Depression (CMS/HCC) 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 Cardiovascular: Negative. Gastrointestinal: Negative. Genitourinary: Positive for pelvic pain. Musculoskeletal: Negative. Skin: Negative. Neurological: Negative. All [...] nursing note reviewed. Exam conducted with a transportation security screener present. Vitals: Estimated body mass index is 26.82 kg/m as calculated from the following: Height as of 03/30/23: 5' 3 . Weight as of 11/13/24: 151 lb 6.4 oz. BP: No LMP recorded. ASSESSMENT & PLAN ICD-10-CM 1. Pre-op examination Z01.818 2. Pelvic congestion syndrome N94.89 3. Pelvic pain in female R10.2 Pre Op: Patient is doing well but has complaints of pelvic congestion syndrome and pelvic pain. I have discussed conservative management vs. surgical management with the patient in detail and patient desires surgical management at this time. Patient will undergo Diagnostic Laparoscopy, possible DANA, possible FOE, possible BSO on 12/15/24. Surgical consents were signed, mmc was reviewed, and patient is to proceed to H OR. Follow Up: Patient is to follow up between 1-2 weeks post operative to assess proper healing and recovery from procedure. Documented by Beata Franco LPN on behalf of: Ron Ruano DO documented in this encounter [facility] 11-16-2024 Telephone encounter Note Discussed with Ms. Lamb about her migraine injections. Her insurance does not cover Aimovig. We have to switch to Emgality which is approved by her medical insurance. We discussed she will give her self the loading dose injections of 2ml. Then she will grape picker the monthly maintenance injection of Emgality at the local pharmacy. Injection teaching over the phone. I also encouraged her to discuss with local pharmacist for any questions and instructions for Emgality use. She can use rizatriptan while being on Emgality injections. I discussed that response may take upto 3 months of the injections. Called the local pharmacy and confirmed Emgality loading dose is ready for pick-up. Roge Lane MD, PhD [facility] 11-16-2024 Miscellaneous Notes Discussed with Ms. Lamb about her migraine injections. Her insurance does not cover Aimovig. We have to switch to Emgality which is approved by her medical insurance. We discussed she will give her self the loading dose injections of 2ml. Then she will grape picker the monthly maintenance injection of Emgality at the local pharmacy. Injection teaching over the phone. I also encouraged her to discuss with local pharmacist for any questions and instructions for Emgality use. She can use rizatriptan while being on Emgality injections. I discussed that response may take upto 3 months of the injections. Called the local pharmacy and confirmed Emgality loading dose is ready for pick-up. Roge Lane MD, PhD Addended by: ROGE LANE on: 11/16/2024 01:24 PM Modules accepted: Orders Medication Access Team coordinated the following [facility] Clinics: MS/Neurology Prior Authorization Per the patient's insurance provider, [employer], the prior authorization for Emgality 120 (on-label) was approved. Authorization number: [id number] Authorization start date: 11.16.24 Authorization end date: 11.15.25 #2ml per 30 days $35.00 Non-Specialty Prescriptions: 1, 8-10 min Johana Giordano Images from the original note were not included. Loading dose Emgality is already marked in the system (this happens frequently) We can wait to prescribe until insurance gives us a determination before doing these scripts for loading and maintenance. Requested PA for Galcanezumab-gnlm 120 MG/ML Solution Auto-injector loading dose Johana Pasquale Addended by: ROGE LANE on: 11/15/2024 03:48 PM Modules accepted: Orders Requested Prescriptions Pending Prescriptions Disp Refills Galcanezumab-gnlm (Emgality) 120 MG/ML Solution Auto-injector [Pharmacy Med Name: EMGALITY 120 MG/ML PEN] 0 Last office visit: 11/09/24 Next office visit: has not been scheduled yet Medication last filled: Erenumab-aooe (Aimovig) 70 MG/ML Solution Auto-injector. 11/09/24 documented in this encounter [facility] 11-16-2024 Note Addended by: Brett LANE on: 11/16/2024 01:24 PM Modules accepted: Orders [facility] 11-16-2024 Note Addended by: Brett LANE on: 11/16/2024 01:24 PM Modules accepted: Orders [facility] 11-16-2024 Miscellaneous Notes Addended by: ROGE LANE on: 11/16/2024 01:24 PM Modules accepted: Orders Medication Access Team coordinated the following [facility] Clinics: MS/Neurology Prior Authorization Per the patient's insurance provider, [employer], the prior authorization for Emgality 120 (on-label) was approved. Authorization number: [id number] Authorization start date: 11.16.24 Authorization end date: 11.15.25 #2ml per 30 days $35.00 Non-Specialty Prescriptions: 1, 8-10 min Johana Giordano Images from the original note were not included. Loading dose Emgality is already marked in the system (this happens frequently) We can wait to prescribe until insurance gives us a determination before doing these scripts for loading and maintenance. Requested PA for Galcanezumab-gnlm 120 MG/ML Solution Auto-injector loading dose Johana Giordano Addended by: ROGE LANE on: 11/15/2024 03:48 PM Modules accepted: Orders Requested Prescriptions Pending Prescriptions Disp Refills Galcanezumab-gnlm (Emgality) 120 MG/ML Solution Auto-injector [Pharmacy Med Name: EMGALITY 120 MG/ML PEN] 0 Last office visit: 11/09/24 Next office visit: has not been scheduled yet Medication last filled: Erenumab-aooe (Aimovig) 70 MG/ML Solution Auto-injector. 11/09/24 documented in this encounter [facility] 11-16-2024 Telephone encounter Note Medication Access Team coordinated the following [facility] Clinics: MS/Neurology Prior Authorization Per the patient's insurance provider, [employer], the prior authorization for Emgality 120 (on-label) was approved. Authorization number: [id number] Authorization start date: 11.16.24 Authorization end date: 11.15.25 #2ml per 30 days $35.00 Non-Specialty Prescriptions: 1, 8-10 min Johana Giordano [facility] 11-16-2024 Telephone encounter Note Images from the original note were not included. Loading dose Emgality is already marked in the system (this happens frequently) We can wait to prescribe until insurance gives us a determination before doing these scripts for loading and maintenance. [facility] 11-15-2024 Telephone encounter Note Requested PA for Galcanezumab-gnlm 120 MG/ML Solution Auto-injector loading dose Johana Giordano [facility] 11-15-2024 Miscellaneous Notes Requested PA for Galcanezumab-gnlm 120 MG/ML Solution Auto-injector loading dose Johana Giordano Addended by: ROGE LANE on: 11/15/2024 03:48 PM Modules accepted: Orders Requested Prescriptions Pending Prescriptions Disp Refills Galcanezumab-gnlm (Emgality) 120 MG/ML Solution Auto-injector [Pharmacy Med Name: EMGALITY 120 MG/ML PEN] 0 Last office visit: 11/09/24 Next office visit: has not been scheduled yet Medication last filled: Erenumab-aooe (Aimovig) 70 MG/ML Solution Auto-injector. 11/09/24 documented in this encounter [facility] 11-15-2024 Note Addended by: Brett LANE on: 11/15/2024 03:48 PM Modules accepted: Orders [facility] 11-15-2024 Note Addended by: Brett LANE on: 11/15/2024 03:48 PM Modules accepted: Orders [facility] 11-15-2024 Note Addended by: Brett LANE on: 11/15/2024 03:48 PM Modules accepted: Orders [facility] 11-13-2024 History of Present illness Narrative Reason for Appointment: Patient ID: Zainab Swift is a 29 y.o. female who presents for Pelvic congestion syndrome Patient presents today for Consult appointment. MEDICATIONS Current Outpatient Medications Medication Instructions Acetaminophen (TYLENOL EXTRA STRENGTH PO) 500 mg, Daily FLUoxetine (PROZAC) 20 mg, Oral, Daily lamoTRIgine (LAMICTAL) 25 mg, Oral, Daily ALLERGIES Allergies Allergen Reactions Gabapentin Diarrhea and Nausea Only Other Reaction(s): nausea, diarrhea Metronidazole GI intolerance and Nausea Only Other Reaction(s): GI Disturbance PROBLEMS Active Ambulatory Problems Diagnosis Date Noted No Active Ambulatory Problems Resolved Ambulatory Problems Diagnosis Date Noted No Resolved Ambulatory Problems Past Medical History: Diagnosis Date Anxiety Cancer (CMS/HCC) Depression (CMS/HCC) Personality disorder (CMS/HCC) HISTORY PAST MEDICAL HISTORY SOCIAL HISTORY Past Medical History: Diagnosis Date Anxiety Cancer (CMS/HCC) neuro-endocrinology cancer Depression (CMS/HCC) Personality disorder (CMS/HCC) borderline Social History Tobacco Use Smoking status: [...] Eyes: Negative. Respiratory: Negative. Cardiovascular: Negative. Gastrointestinal: Positive for abdominal pain. Genitourinary: Positive for pelvic pain. Musculoskeletal: Negative. Skin: Negative. Neurological: Negative. All [...] nursing note reviewed. Exam conducted with a transportation security screener present. Vitals: Estimated body mass index is 26.82 kg/m as calculated from the following: Height as of 23: 5' 3 . Weight as of this encounter: 151 lb 6.4 oz. BP: 110/70 No LMP recorded. ASSESSMENT & PLAN ICD-10-CM 1. Pelvic congestion syndrome N94.89 2. Pelvic pain in female R10.2 Urine culture Patient presents today to discuss results of ultrasound. Patient is planning on attempting to conceive in about 1 year. Patient desires to have Diagnostic Lap with possible DANA/possible FOE in the meantime to alleviate pain. Patient to discuss procedure date and patient to return to clinic for pre-op appointment accordingly. Documented by Rhoda Ortega LPN on behalf of: Ron Ruano DO documented in this encounter [facility] 11-09-2024 Telephone encounter Note Requested Prescriptions Pending Prescriptions Disp Refills Galcanezumab-gnlm (Emgality) 120 MG/ML Solution Auto-injector [Pharmacy Med Name: EMGALITY 120 MG/ML PEN] 0 Last office visit: 11/09/24 Next office visit: has not been scheduled yet Medication last filled: Erenumab-aooe (Aimovig) 70 MG/ML Solution Auto-injector. 11/09/24 [facility] 11-09-2024 History of Present illness Narrative Images from the original note were not included. [facility] Chief complaint: Patient with history of NET (EDELMIRA on recent imaging) with complaints of worsening migraine headaches not relieved by tylenol and fluid intake. Would like further evaluation, has tried working with PCP and did not find relief. History of present illness: Zainab Swift is a 29 y.o. 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 Migraine - started during , loss of vision followed by headache 30mins to 1hr, Q2 weeks. - one episode was associated with loss of vision/ aphasia for 30 mins. She told me she had a negative workup at ED and she was told that she had ocular migraine - used tylenol during - since (13 months ago), she had pressure at forehead and back of the head: dull ache. Daily constant, severity ranges between 4 and 8 out of 10. Phono/photo-phobia. Severe WAGNER frequency: 15 days per months. Sometimes WAGNER worse (pressure built-up, blurry visions) when lying down/bending over and sometimes waking her up from sleep. Associated with mild general weakness and neck pain. Denies syncope. - hx of multiple episodes of thunderclap type headache> presented to ED OSH (no charts on epic, per patient> no images> improved with headache cocktails - denies WAGNER associated with octreotide (while on or off it.) - WAGNER improves with ice and rest in the dark room - prior medications not effective tylenol, ibuprofen, excedrin, topiramate - ineffective Gabapentin- nausea Already on fluxetine for mood Beta andrew- intermittent dizziness - FH: no headache. Tingling Started after tumor resections in 2021. Unclear the exact timing. Overall, slowly progressive tingling, lasted for 2 hours, intermittent Q2days, involving different parts of the arms/legs, sqeezing/weakness at forearm, goes to the fingers (particularly the 3rd, 4th and 5th digits), no pain at elbow or wrist. She also has tingling below the knees. Mild weakness. Reports those episodes not related with her migraine or headache. Had intraabdominal chemo mitomycin C in 05/2022. - Q1-2days imbalance, vertigo, dizziness. - numbness tingling at hands/feet Tumor hx She was diagnosed with appendiceal neuroendocrine tumor/appendiceal mucinous neoplasm in 2021, in the setting of appendectomy due to acute appendicitis in 2021 and futher resections of small peritoneal nodules, s/p HIPEC with mitomycin C. Her cancer course is complicated with further tumor debulking, C diff, intolerance to octreotide due to c/f dysautonomia, seen by rheum and cardiology. Cardiology had echo, telemetry workup with abnormal findings. Per cardiology notes, atypical chest pain. Octreotide resumed due to less concerns for the triggers. Since she stopped octreotide due to conception (11/30/2022), resumed octreotide, then stopped again due to liver pain, last dose January 2024, her flushing, heart palpitations, SOB have got worse. However, per report, she still want to hold off due to prior SE. She has been monitored for carcinoid syndrome. With active surveillance scans q4 m. Last seen on 09/28/2024 at [facility]. - on going flushing q2days, 5-30mins involving cheeks, neck, dry heat. On home fluoxetine 20mg daily, lamotrigine 100mg Review of Systems: Pertinent items are noted in the HPI, all other systems were queried and are negative. Past Medical History: Diagnosis Date Anxiety Arthritis Borderline personality disorder Clostridioides difficile infection 05/2022 Depression GERD (gastroesophageal reflux disease) History of cancer Past Surgical History: Procedure Laterality Date SECTION 2023 HYPERTHERMIA BY INTRACAVITARY PROBE (HIPEC) N/A 05/22/2022 Laterality: N/A; Surgeon: Archie Hugo MD, PhD; Location: [facility] MAIN OR COLECTOMY PARTIAL OPEN Right 05/22/2022 Laterality: Right; Surgeon: Archie Hugo MD, PhD; Location: [facility] MAIN OR DEBULKING INTRA-ABDOMINAL/PELVIC/RETROPERIT FLEMING W/ OMENECTOMY & PELVIC PARA-AORTIC LYMPHADENECTOMY N/A 05/22/2022 Laterality: N/A; Surgeon: Archie Hugo MD, PhD; Location: [facility] MAIN OR COLECTOMY PARTIAL LAPAROSCOPIC N/A 04/21/2022 Laterality: N/A; Surgeon: Archie Hugo MD, PhD; Location: [facility] MAIN OR COLONOSCOPY DIAGNOSTIC 04/08/2022 APPENDECTOMY LAPAROSCOPIC 02/03/2022 [place], [place] Family History Problem Relation Age of Onset Myocardial Infarction Maternal Grandmother 59 Lung Cancer Maternal Grandfather Cancer Maternal Aunt THYROID Cancer Cousin Neuroendocrine cancer Leukemia Other Leukemia Other Breast Cancer Other Cancer Other Uterine Breast Cancer Maternal Aunt Invasive ductal carcinoma stage 4 Social History Socioeconomic History Marital status: Spouse [...] Occupational Exposure No Hobby Hazards No Social History Narrative Not on file Social Drivers of Health Financial Resource Strain: Medium Risk (02/18/2022) Received from [employer], [facility] Overall Financial Resource Strain (CARDIA) Difficulty of Paying Living Expenses: Somewhat hard Food Insecurity: Unknown (04/13/2024) Received from [facility] Hunger Screening Within the past 12 months we worried whether our food would run out before we got money to buy more.: Never True Food Insecurity - Inability: Not on file Transportation Needs: Low Risk (07/09/2023) Re[facility] from [facility] ([facility]) Transportation Has a lack of transportation kept you from medical appointments, meetings, work, or from getting things needed for daily living?: Not on file Physical Activity: Insufficiently Active (02/18/2022) Received from [facility] [facility], [facility] Exercise Vital Sign Days of Exercise per Week: 3 days Minutes of Exercise per Session: 40 min Stress: Stress Concern Present (02/18/2022) Received from [facility] [employer] [facility], [facility] [place] of Occupational Health - Occupational Stress Questionnaire Feeling of Stress : Very much Social Connections: Unknown (02/18/2022) Received from [facility] [employer] [facility], [facility] Social Connection and Isolation Panel [NHANES] Frequency of Communication with Friends and Family: Twice a week Frequency of Social Gatherings with Friends and Family: Patient declined Attends Temple Services: Never Active Member of Clubs or Organizations: No Attends Club or Organization Meetings: Patient declined Marital Status: Personal Safety: Not on file Housing Stability: Not on file Allergies Allergen Reactions Flagyl [Metronidazole] Gabapentin Nausea Only Current Outpatient Medications Medication Sig Dispense Refill Acetaminophen 325 MG tablet Take 2 tablets by mouth every 4 hours. Ibuprofen 400 MG tablet Take 1 tablet by mouth every 6 hours as needed for Mild Pain. FLUoxetine 20 MG capsule Take 2 capsules by mouth daily. lamoTRIgine 100 MG tablet Take 0.5 tablets by mouth daily. Loperamide 2 MG capsule Take 1 capsule by mouth as needed for Diarrhea. 2 stat then 1 cap after each loose stool (Patient not taking: Reported on 11/09/2024) Multiple Vitamins-Minerals (Multivitamin w/ minerals, THERAPEUTIC-M,) tablet Take 1 tablet by mouth daily. Octreotide Acetate 100 MCG/ML Solution Prefilled Syringe prefilled syringe Inject 1 mL under the skin 3 times daily as needed for Other (carcinoid syndrome). (Patient not taking: Reported on 11/09/2024) 90 mL 0 Probiotic Product (PROBIOTIC PO) Take by mouth. + Prebiotic (Patient not taking: Reported on 11/09/2024) No current facility-administered medications for this visit. Physical Exam: BP 129/68 (BP Location: Left arm, BP Position: Sitting) Pulse 78 Temp 98.9 F (37.2 C) (Infrared) Resp 14 Ht 1.549 m (5' 1 ) Wt 70.3 kg (155 lb) SpO2 97% BMI 29.29 kg/m Smoking Status Never Body mass index is 29.29 kg/m . General: Sitting comfortably in chair; in no acute distress. HENT: Normal oropharynx and mucosa. Normal external appearance of ears and nose. Neck: Supple, L sided tenderness (MSK type). No limited ROM CV: No peripheral edema. Pulmonary: Normal respiratory effort. Abdomen: Soft, non-tender. Ext: No cyanosis, edema, or deformity Skin: No rash. Musculoskeletal: Full range of motion; no joint tenderness. Neurological Examination Mental status: awake and alert; oriented to person, place, year, and month; good attention. Normal mood and affect. Normal insight into condition. Speech/language: fluent; comprehension intact; object naming intact; repetition intact Cranial nerves: CN II: Visual payne intact to confrontation. PERRL. Normal conjunctivae and lids jumpbasting canvas baster III, IV and : extraocular movements intact. No nystagmus. CN V: Facial sensation is intact to light touch. CN VII: Facial strength normal with symmetric movement. CN VIII: Hearing is grossly intact. CN IX and X: Soft palate elevates symmetrically in the midline CN XI: Shoulder shrug and sternocleidomastoid strength (R/L) 5/5 CN XII: Tongue is midline with normal movement; no fasciculations. Motor: Normal bulk and tone. No pronator drift. SA EE EF WE WF DI HF KE KF DF PF Right 5 5 5 5 5 5 5 5 5 5 5 Left 5 5 5 5 5 5 5 5 5 5 5 Reflexes: Right Left Comments Biceps 2 2 Triceps 2 2 Brachioradialis 2 2 Patellar 2 2 Achilles 2 2 Jaw jerk Montero Babinski Down Down Coordination: Aezzia-ja-ormt intact bilaterally. Sensation: Comments Light touch Intact throughout Pin prick Intact throughout Temperature Intact throughout Vibration Intact throughout Proprioception Intact throughout Gait: Normal stride length, arm swing, and base width. Able to toe, heel, and tandem walk. Negative Romberg. Laboratory data: CBC wnl, except platelet 395 Chem wnl TSH 1.315 Imaging/diagnostic procedures: Echo 10/2022 Left Ventricle: Chamber size is normal. Normal [...] mobility is normal. No regurgitation. No stenosis. Impression: Zainab Swift is a 29 y.o. 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 Chronic migraine with photophobia, phonophobia, nausea, daily episodes with migraine days 30/30 and severe migraine days 15, refractory to OTC tylenol, ibuprofen. Also previously tried topiramate, intolerance to gabapentin, already on fluoxetine. She has baseline dizziness and flushing syndrome related with her known neuroendocrine tumor, not a candidate for beta-andrew. Given the severe headache and cancer history, recommend start CGRP antagonist, such as Aimovig to treat the refractory migraines and avoid medications interactions. Side effect of Aimovig: constipation. Patient has diarrhea due to baseline flushing syndrome. So her diarrhea could potentially improve with aimovig. Aimovig injection teaching is completed at the encounter. No known ischemic cardiac history and no chest pain, will recommend rizatriptan for headache rescue medications. Discussed the risk factors of heart attack or stroke due to excess risk of rizatriptan. She understands that she should not exceed the dosages that recommended on the instructions. Physical therapy for neck tightness Zofran for prodromal nausea For her tingling, intermittent, migratory, with non-focal exam, likely associated with her migraine syndrome. Will monitor the symptoms. Mitomycin is not known to cause paresthesia/peripheral neuropathy. If symptoms become persistent, the next step is to complete peripheral neuropathy workup +/- EMG Recommendations: - Maintenance therapy: Aimovig 10mg monthly injection, prior authorization started. - Rescue therapy: rizatriptan 10mg PRN, at the onset of severe headache. Follow the instructions on the medications. - Zofran as needed for nausea - Physical therapy for neck tightness - Continue life-style management: good sleep hygiene, adequate hydration, nutrition and stress management - Non-urgent my-chart messages Thank you for allowing us the opportunity to participate in the care of your patient. Please do not hesitate to contact our office should you have any questions. Staffed with Narinder Noble, Sincerely, Roge Lane MD, PhD PGY-3 Department of Neurology I saw and independently examined the patient on 11/09/2024. I agree with the history, examination, and medical decision making as noted by Dr. Lane. Ed Noble MD [place] [employer] Surface of Neurology [facility] [place] documented in this encounter [facility] 11-09-[address] MD - 11/09/2024 3:15 PM EDT You are seen for migraine and tingling at your arms/legs - physical therapy ordered for you to help with neck pain/tightness - rizatriptan 10mg as needed for severe headache - use the rizatriptan at the onset of the severe headache. Follow the instructions on the bottle - zofran as needed for nausea - aimovig, monthly injections, ordered for you to use for headache maintenance treatment. It needs prior-authorization process. - follow up in 3 months documented in this encounter [facility] 09-28-2024 Note Addended by: ANY COOLEY on: 09/28/2024 01:02 PM Modules accepted: Orders [facility] 09-28-2024 Note Addended by: ANY COOLEY on: 09/28/2024 01:02 PM Modules accepted: Orders [facility] 09-28-2024 Note Addended by: ANY COOLEY on: 09/28/2024 01:02 PM Modules accepted: Orders [facility] 09-28-2024 Miscellaneous Notes Addended by: ANY COOLEY on: 09/28/2024 01:02 PM Modules accepted: Orders Called patient and patient is scheduled as outlined by AVS. Patient asking for a disability coordinator referral for here [facility]. Patient stated [facility] one [facility] at [facility] but would like to see someone different. Is someone able to help with this please? Thank you! Instructions from MAMTA Stanley RTC: 4 months with labs, scans 1 week prior with Ye Referral to neurology headache clinic documented in this encounter [facility] 09-28-2024 Telephone encounter Note Called patient and patient is scheduled as outlined by AVS. Patient asking for a disability coordinator referral for here at [facility]. Patient stated had one previously at [facility] but would like to see someone different. Is someone able to help with this please? Thank you! Instructions from MAMTA Stanley RTC: 4 months with labs, scans 1 week prior with Ye Referral to neurology headache clinic [facility] 08-17-2024 History of Present illness Narrative Reason for Appointment: Patient ID: Zainab Swift is a 29 y.o. female who presents for Well Women Visit Patient presents today for Annual Exam. MEDICATIONS Current Outpatient Medications Medication Instructions Acetaminophen (TYLENOL EXTRA STRENGTH PO) 500 mg, Daily FLUoxetine (PROZAC) 20 mg, Oral, Daily lamoTRIgine (LAMICTAL) 25 mg, Oral, Daily ALLERGIES Allergies Allergen Reactions Flagyl [Metronidazole] GI intolerance Gabapentin Diarrhea and Nausea Only Other Reaction(s): nausea, diarrhea PROBLEMS Active Ambulatory Problems Diagnosis Date Noted No Active Ambulatory Problems Resolved Ambulatory Problems Diagnosis Date Noted No Resolved Ambulatory Problems Past Medical History: Diagnosis Date Anxiety Cancer (CMS/HCC) Depression (CMS/HCC) Personality disorder (CMS/HCC) HISTORY PAST MEDICAL HISTORY SOCIAL HISTORY Past Medical History: Diagnosis Date Anxiety Cancer (CMS/HCC) neuro-endocrinology cancer Depression ([facility]/HCC) Personality disorder ([facility]/HCC) borderline Social History Tobacco Use Smoking status: [...] Appearance: Normal appearance. She is normal weight. Genitourinary: Right Adnexa: not tender and no mass present. Left Adnexa: not tender and no mass present. No cervical discharge. Breasts: Breasts are soft. Right: Normal. Left: Normal. HENT: Head: Normocephalic. Nose: Nose normal. Mouth/Throat: Mouth: Mucous membranes are moist. Cardiovascular: Rate and Rhythm: Normal rate. Pulses: Normal pulses. Pulmonary: Effort: Pulmonary effort is normal. Breath sounds: Normal breath sounds. Abdominal: General: Bowel sounds are normal. Palpations: Abdomen is soft. Musculoskeletal: General: Normal range of motion. Cervical back: Normal range of motion. Neurological: General: No focal deficit present. Mental Status: She is alert and oriented to person, place, and time. Skin: General: Skin is warm and dry. Psychiatric: Mood and Affect: Mood normal. Behavior: Behavior normal. Thought Content: Thought content normal. Judgment: Judgment normal. Vitals and nursing note reviewed. Exam conducted with a transportation security screener present. Vitals: Estimated body mass index is 28.36 kg/m as calculated from the following: Height as of 03/30/23: 5' 3 . Weight as of this encounter: 160 lb 1.9 oz. BP: 110/68 Patient's last menstrual period was 08/03/2024 (approximate). ASSESSMENT & PLAN ICD-10-CM 1. Well woman exam with routine gynecological exam Z01.419 Pap Smear 2. Menorrhagia with regular cycle N92.0 CBC and differential TSH hCG, quantitative, Protime-INR T4, free APTT Hemoglobin A1c US Pelvis w/ TV APTT Patient is 10 moths post and states over past several months her periods have become painful and irregular. She states she wished to conceive again in the near future. We will order wellness labs and ultrasound, patient will follow up with DR Ruano. Documented by TORY Jorge on behalf of: TROY Jorge documented in this encounter [facility] 05-15-2024 Miscellaneous Notes ----- Message from Dr. Timmy Hall DO sent at 05/15/2024 10:51 AM EDT ----- Please let patient know that she had mild chronic gastritis and I recommend taking omeprazole OTC for 6 weeks otherwise she may follow up p.r.n.. ThanksDr. Smith Spoke with patient regarding pathology results. Patient verbally understood with no further questions. documented in this encounter [facility] 05-15-2024 Telephone encounter Note ----- Message from Dr. Timmy Hall DO sent at 05/15/2024 10:51 AM EDT ----- Please let patient know that she had mild chronic gastritis and I recommend taking omeprazole OTC for 6 weeks otherwise she may follow up p.r.n.. ThanksDr. Smith [facility] 05-15-2024 Telephone encounter Note Spoke with patient regarding pathology results. Patient verbally understood with no further questions. [facility] 04-21-2024 Telephone encounter Note Patient returned phone [...] clinic when test completed to obtain reports. [facility] 04-21-2024 Miscellaneous Notes Patient returned phone call [...] was rescheduled to 04/25/24. She c/o abdominal [id number] RUQ, nausea, no vomiting or fevers, occasional chills, and more frequent diarrhea outside of her normal daily diarrhea. She is inquiring if would order a CT of her abdomen. She is requesting a call back. documented in this encounter [facility] 04-21-2024 Telephone encounter Note Attempted to contact patient and message left. [facility] 04-13-2024 History of Present illness Narrative Images from the original note were not included. Chief Complaint: Colitis History of Present Illness Zainab Swift is a 28 y.o. female who presents to the office with changes in her bowel habits. Symptoms started 6 months ago. She reports 10 bowel movements daily. She states everything she eats goes right through her. She also reports middle and left lower quadrant abdominal pain. She denies any bright red blood per her rectum. She does report some black stools. She does not smoke or drink an increased amount of caffeine. Her stools are also mucousy. She is having nausea after meals and reports intermittent heartburn. She denies fever. She has a history of C diff. She was checked for this recently and reports that everything came back negative. Her PCP gave her a dose of azithromycin for the diarrhea, but this did not help. She had a CT scan in January at [facility] that showed near diffuse mild colonic mural thickening compatible with colitis. She went to see her GI doctor and he told her she needs a colonoscopy. She would like this performed locally. She had cholecystectomy in June 2023. She is currently taking Colestipol. 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 Review of Systems Constitutional: Negative for fever and unexpected weight change. HENT: Negative for trouble swallowing. Respiratory: Negative for shortness of breath. Cardiovascular: Negative for chest pain. Gastrointestinal: Positive for nausea, abdominal pain, diarrhea and black tarry stool. Negative for vomiting and constipation. Genitourinary: Negative for dysuria and difficulty urinating. Musculoskeletal: Negative for gait problem. Skin: Negative for rash and wound. Neurological: Negative for dizziness, weakness and light-headedness. Hematological: Does not bruise/bleed easily. Psychiatric/Behavioral: Negative for confusion. Past Medical History: Diagnosis Date Anxiety and depression Back pain Cancer (CMS-HCC) GERD (gastroesophageal reflux disease) Migraine Neuroendocrine cancer ([facility]-HCC) Personality disorder ([facility]-HCC) Past Surgical History: Procedure Laterality Date APPENDECTOMY 02/03/2022 COLON SURGERY 05/22/2022 Right Hemicolectomy- [facility] COLONOSCOPY DAVINCI CHOLECYSTECTOMY N/A 06/18/2023 Performed by Carmen Saab MD at [facility] LAPAROTOMY 04/21/2022 [facility] LYMPH NODE BIOPSY SMALL INTESTINE SURGERY Allergies Allergen Reactions Gabapentin Diarrhea and GI Disturbance Metronidazole GI Disturbance Current Outpatient Medications: colestipoL (COLESTID) 1 g tablet, Take 1 tablet (1 g total) by mouth every other day. TAKE 2 TABLETS BY MOUTH TWICE A DAY WITH A FULL GLASS OF WATER, per patient every other day, Disp: , Rfl: FLUoxetine (PROzac) 20 MG tablet, Take 1 tablet (20 mg total) by mouth in the morning and 1 tablet (20 mg total) before bedtime., Disp: , Rfl: lamoTRIgine (LaMICtal) 25 mg tablet, Take 1 tablet (25 mg total) by mouth in the morning., Disp: , Rfl: octreotide,microspheres (SandoSTATIN LAR [place]) 20 mg injection, Inject 20 mg into the appropriate muscle Once every four weeks., Disp: , Rfl: ondansetron (ZOFRAN) 8 mg tablet, Take 1 tablet (8 mg total) by mouth daily as needed for nausea or vomiting., Disp: , Rfl: Social History Socioeconomic History Marital status: Spouse name: Not on file Number of children: Not on file Years of education: Not on file Highest education level: Some college, no degree Occupational History Not on file Tobacco Use Smoking status: Never Smokeless tobacco: Never Vaping Use Vaping status: Never Used Substance and Sexual Activity Alcohol use: Not Currently Drug use: Never Sexual activity: Yes Partners: Male Other Topics Concern Not on file Social History Narrative Not on file Social Determinants of Health Financial Resource Strain: Medium Risk (02/18/2022) Overall Financial Resource Strain (CARDIA) Difficulty of Paying Living Expenses: Somewhat hard Food Insecurity: No Food Insecurity (04/13/2024) Hunger Screening Food Insecurity - Worry: Never True Food Insecurity - Inability: Never True Transportation Needs: No Transportation Needs (02/18/2022) PRAPARE - Transportation Lack of Transportation (Medical): No Lack of Transportation (Non-Medical): No Physical Activity: Insufficiently Active (02/18/2022) Exercise Vital Sign Days of Exercise per Week: 3 days Minutes of Exercise per Session: 40 min Stress: Stress Concern Present (02/18/2022) [place] of Occupational Health - Occupational Stress Questionnaire Feeling of Stress : Very much Social Connections: Unknown (02/18/2022) Social Connection and Isolation Panel [NHANES] Frequency of Communication with Friends and Family: Twice a week Frequency of Social Gatherings with Friends and Family: Patient declined Attends Temple Services: Never Active Member of Clubs or Organizations: No Attends Club or Organization Meetings: Patient declined Marital Status: Interpersonal Safety: Not At Risk (02/18/2022) Humiliation, Afraid, Rape, and Kick questionnaire Fear of Current or Ex-Partner: No Emotionally Abused: No Physically Abused: No Sexually Abused: No Housing Instability: Not on file Family History Problem Relation Age of Onset Hypertension Mother Diabetes Mother Asthma Father Kidney disease Father Breast cancer Maternal Aunt Objective Physical Exam Constitutional: General: She is not in acute distress. Appearance: Normal appearance. She is not ill-appearing. HENT: Head: Normocephalic and atraumatic. Mouth/Throat: Mouth: Mucous membranes are moist. Eyes: Pupils: Pupils are equal, round, and reactive to light. Cardiovascular: Rate and Rhythm: Normal rate. Pulmonary: Effort: Pulmonary effort is normal. No respiratory distress. Abdominal: General: There is no distension. Palpations: Abdomen is soft. Tenderness: There is generalized abdominal tenderness. There is no guarding. Musculoskeletal: General: Normal range of motion. Skin: General: Skin is warm and dry. Neurological: Mental Status: She is alert and oriented to person, place, and time. Mental status is at baseline. Vital Signs: Blood pressure 141/60, pulse 79, height 154.9 cm (5' 1 ), weight 71.2 kg (157 lb), unknown if currently . 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 Schedule EGD and colonoscopy at a later date in [place] Evaluation included: Preparing to see the patient (e.g., review of tests) Obtaining and/or reviewing separately obtained history Performing a medically appropriate examination and/or evaluation Counseling and educating the patient/family/caregiver Referring and communicating with other health career law clerk Colitis [K52.9] MAMTA LEWIS [facility] [place] This note was created with the assistance of a speech recognition program. While intending to generate a timely document that accurately reflects the content of the visit, no guarantee can be provided that every grammatical or spelling mistake has been or will be identified or corrected. Thank you for your understanding. MAMTA Lewis 04/14/24 0842 documented in this encounter [facility] 04-12-2024 Telephone encounter Note 04/12/2024 11:43 AM Patient sent a my chart message asking this per Dr Ortega: Did she try cholestyramine for the diarrhea? RN also let her know via my chart about her scan. --Any Medrano RN [facility] 04-12-2024 Miscellaneous Notes 04/12/2024 11:43 AM Patient [...] was rescheduled to 04/25/24. She c/o abdominal pyft-raulc-[id number] RUQ, nausea, no vomiting or fevers, occasional chills, and more frequent diarrhea outside of her normal daily diarrhea. She is inquiring if would order a CT of her abdomen. She is requesting a call back. documented in this encounter [facility] 04-11-2024 Telephone encounter Note Call placed to [...] day Rating: when it comes on it's 6-01/25 Aggravating: eating Alleviating: only thing is oxycodone Nausea is really bad and it's painful to have bowel movements Any blood in stool? Yes dark blood in stools just a couple instances [facility] 04-11-2024 Telephone encounter Note Patient phoned in stating that she was scheduled for her PET scan tomorrow however she had her Octreotide injection 8 days ago so it was rescheduled to 04/25/24. She c/o abdominal [id number]-fwf RUQ, nausea, no vomiting or fevers, occasional chills, and more frequent diarrhea outside of her normal daily diarrhea. She is inquiring if would order a CT of her abdomen. She is requesting a call back. [facility] 03-17-2024 Note Addended by: Anna MORALEZ on: 03/17/2024 04:17 PM Modules accepted: Orders [facility] 03-17-2024 Note Addended by: Anna MORALEZ on: 03/17/2024 04:17 PM Modules accepted: Orders [facility] 03-17-2024 Telephone encounter Note [facility] 03-17-2024 Miscellaneous Notes Addended by: YUDELKA MORALEZ on: 03/17/2024 04:17 PM Modules accepted: Orders Refilled Call placed to patient - she was rescheduled for April 04. They asked to ask us if they have to have an order sent to their clinic? Surgery center in [place]. She didn't ever grape picker the prescription [...] she will need to start prep soon. [phone] documented in this encounter [facility] 03-17-2024 Telephone encounter Note Call placed to patient - she was rescheduled for April 04. They asked to ask us if they have to have an order sent to their clinic? Surgery center in [place]. She didn't ever grape picker the prescription for her short acting octreotide. She'd be happy to pick that up to take the short acting shots prior to procedure. [facility] 03-13-2024 Telephone encounter Note Called to speak to patient regarding her colonoscopy but no answer at this time. LVM to have patient call us back at their earliest convenience [facility] 03-13[facility]24 Telephone encounter Note Patient calling in stating she has a colonoscopy scheduled tomorrow. The surgery center where she is getting it done does not have the Octreotide she should take. Wanting to know if she should reschedule. Requesting a response as soon as possible as she will need to start prep soon. [phone] [facility] 02-07-2024 Evaluation + Plan note Future Scheduled TestsCeliac Disease Comprehensive 02/07/24Celiac Disease Comprehensive 02/07/24 [facility] 01-06-2024 History of Present illness Narrative Images from the original note were not included. Referring Physician: Dr. Andreas Ortega Attending Physician: Dr. 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 female with a past medical history of GERD and mood disorder. RLQ pain. She underwent an appendectomy at [facility] 02/03/22. Pathology was consistent with both [...] OR COLONOSCOPY DIAGNOSTIC 04/08/2022 APPENDECTOMY LAPAROSCOPIC 02/03/2022 [place], [place] Medications: Current Outpatient Medications Medication Sig [...] (Patient not taking: Reported on 01/06/2024) Pancrelipase, Xnx-Tusw-Ggor, (Creon) [id number] units Cap DR Particles Please take one [...] Resource Strain: Medium Risk (02/18/2022) Received from [employer] Overall Financial Resource Strain (CARDIA) Difficulty of Paying Living Expenses: Somewhat hard Food Insecurity: No Food Insecurity (07/07/2023) Received from [employer] Hunger Screening Within the past 12 months we worried whether our food would run out before we got money to buy more.: Never True Within the past 12 months the food we bought just didn't last and we didn't have money to get more.: Never True Transportation Needs: No Transportation Needs (02/18/2022) Received from [employer] PRAPARE - Transportation Lack of Transportation (Medical): No Lack of Transportation (Non-Medical): No Physical Activity: Insufficiently Active (02/18/2022) Received from [employer] Exercise Vital Sign Days of Exercise per Week: 3 days Minutes of Exercise per Session: 40 min Stress: Stress Concern Present (02/18/2022) Received from [employer] [place] of Occupational Health - Occupational Stress Questionnaire Feeling of Stress : Very much Social Connections: Unknown (02/18/2022) Received from [employer] Social Connection and Isolation Panel [NHANES] Frequency of Communication with Friends and Family: Twice a week Frequency of Social Gatherings with Friends and Family: Patient declined Attends Temple Services: Never Active Member of Clubs or [...] pN1/M1b. 02/04/22: Assessment/Plan: Please refer to Dr. Gomes' portion of the note associated with this [...] y.o. female who underwent an appendectomy at [facility] 02/03/22. Pathology was consistent with both [...] She has followed with Dr. Ortega at [facility] for her NET. She began octreotide LAR [...] all of her questions to her satisfaction. Vinicius Gomes MD, PhD Curator Division of Medical Oncology Division of Gynecologic Oncology documented in this encounter [facility] 01-06-2024 Instructions Latesha Steen RN - 01/06/2024 3:00 PM EDT You will return to clinic: 1 year To see provider: Dr Gomes documented in this encounter [facility] 11-26-2023 History of Present illness Narrative This nurse verified pts name and . Subjective History of Present Illness: Chief Complaint Patient presents with New Patient Zainab Swift is a 28 y.o. female who presents to the [facility] Gastroenterology, Hepatology, and Nutrition Clinic today [...] Surgeon: Archie Hugo MD, PhD; [facility] COLECTOMY PARTIAL OPEN Right 05/22/2022 Laterality: Right; Surgeon: Archie Hugo MD, PhD; [facility] MA[facility] OR DEBULKING INTRA-ABDOMINAL/PELVIC/RETROPERIT FLEMING W/ OMENECTOMY & PELVIC PARA-AORTIC LYMPHADENECTOMY N/A 05/22/2022 Laterality: N/A; Surgeon: Archie Hugo MD, PhD; Location: [facility] MAIN OR COLECTOMY PARTIAL LAPAROSCOPIC N/A 04/21/2022 Laterality: N/A; Surgeon: Archie Hugo MD, PhD; Location: [facility] MAIN OR COLONOSCOPY DIAGNOSTIC 04/08/2022 APPENDECTOMY LAPAROSCOPIC 02/03/2022 [place], [place] Current Outpatient Medications Medication Sig acetaminophen [...] as needed for Other (carcinoid syndrome). Pancrelipase, Koi-Wuih-Khqb, (Creon) [id number] units Cap DR Particles Please take one [...] enzymes - ALPHA 1 ANTITRYPSIN; Future - [id number] PHENOTYPE; Future - HUNTER SCREEN IFA; Future [...] - TRANSIENT ELASTOGRAPHY documented in this encounter [facility] 11-26-2023 Instructions MAMTA Dee - 11/26/2023 9:30 AM EDT Labs today to evaluate for causes of liver enzyme elevation Fibroscan ordered to evaluate your liver for fibrosis, steatosis Follow up in 3 months - video documented in this encounter [facility] 08-24-2023 History of Present illness [...] nursing note reviewed. Exam conducted with a transportation security screener present. Vitals: Estimated body mass index is [...] Ron Ruano DO documented in this encounter [facility] 12-10-2022 History of Present illness Narrative Chief Complaint: Chief Complaint Patient presents with Follow-up HPI: Zainab Swift is a 27 y.o. female who presents to [facility] for post-operative [...] (Patient not taking: Reported on 07/06/2022) Pancrelipase, Rch-Ccqq-Wsqt, (Creon) [id number] units Cap DR Particles Take two caps [...] Chief Complaint Patient presents with Follow-up HPI: Zainba Swift is a 27 y.o. female who presents to [facility] for post-operative [...] (Patient not taking: Reported on 07/06/2022) Pancrelipase, Cft-Pcfd-Biav, (Creon) [id number] units Cap DR Particles Take two caps [...] examined this patient with the DIRECTOR OF RELIGIOUS ACTIVITIES/fellow/resident. I reviewed the history and exam detailed [...] months with repeat imaging. Archie Hugo MD/PhD research aide Division of Surgical Oncology Department of Surgery documented in this encounter [facility] 12-10-2022 Instructions MAMTA Villagran - 12/10/2022 12:30 PM EDT documented in this encounter [facility] 10-22-2022 History of Present illness [...] ulcers, vision changes. 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 on [...] Surgeon: Archie Hugo MD, PhD; [facility] MA[facility] OR COLECTOMY PARTIAL OPEN Right 05/22/2022 Laterality: Right; Surgeon: Archie Hugo MD, PhD; Location: [facility] MAIN OR DEBULKING INTRA-ABDOMINAL/PELVIC/RETROPERIT FLEMING W/ OMENECTOMY & PELVIC PARA-AORTIC LYMPHADENECTOMY N/A 05/22/2022 Laterality: N/A; Surgeon: Archie Hugo MD, PhD; [facility] MAIN OR COLECTOMY PARTIAL LAPAROSCOPIC N/A 04/21/2022 Laterality: N/A; Surgeon: Archie Hugo MD, PhD; [facility] MAIN OR COLONOSCOPY DIAGNOSTIC 04/08/2022 APPENDECTOMY LAPAROSCOPIC 02/03/2022 [place], [place] Family History Problem Relation Age of [...] Reported on 07/06/2022) 30 tablet 0 Pancrelipase, Cho-Rfei-Gpxz, (Creon) [id number] units Cap DR Particles Take two caps [...] EF 10/22/2022 62 % Final PV PK RJA 10/22/2022 0.97 m/s Final RV S' 10/22/2022 [...] Rebekah Suero MD documented in this encounter [facility] 10-22-2022 Instructions Rebekah Suero MD - 10/22/2022 2:00 PM EDT Images from the original note were not included. Read about POTS/Dysautonomia Try lyrica at night I am your Rheumatology Clinic Nurse today. My name is JORGE Abraham, RUPERT. It was my pleasure caring for your [...] Rub Alcohol hand rub, also called hand local owner operator truck driver, can be used instead of soap and [...] they are dry, atleast 20-30 seconds. [facility]. This handout is for informational purposes only. Talk with your doctor or healthcare team if you have any questions about your care. For more health information call the Library for Health Information at [phone] or email: [email or web address]. documented in this encounter [facility] 10-22-2022 History of Present illness Narrative Intravenous access obtained and remained for next appointment in cardioology at [facility]. 22 gauge IV in left ac. Dressing intact and/or coban used to secure access. Patient instructed to report directly to next appointment. documented in this encounter [facility] 10-07-2022 Note Acute Coronary Syndr ome (ACS): Initial Evaluation and Management: [email or web address]/Acute%2 0Coronary%20Syndrome.pdf#search=t [email or web address] [facility] 10-07-2022 History of Present illness [...] able to do housework. 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 Eating ok. Weight loss noted. Recent thyroid panel done with negative results per pt's subjective report. HUNTRE + test on 09/04/2022, she was referred [...] Reported on 07/06/2022) 30 tablet 0 Pancrelipase, Gsr-Oftj-Ofhr, (Creon) [id number] units Cap DR Particles Take two caps [...] OR COLONOSCOPY DIAGNOSTIC 04/08/2022 APPENDECTOMY LAPAROSCOPIC 02/03/2022 [place], [place] Past medical, surgical, family, and social [...] symptoms. MAMTA [facility] Ghulam G. [facility] and Mohamud Aguirre [facility] To discuss with Dr. Ortega documented in this encounter [facility] 10-07-2022 Instructions Johana Lutz RN - 10/07/2022 [...] script to Zainab Thank you for choosing [facility] for your cancer care. FMLA/Disability forms: Please allow up to 2 weeks for the forms to be returned to you +++ should you need any FMLA, Short term disability or half-way disability forms filled out please fax them to (f) [phone] ++++ Refill requests: Please allow 24-48 hours for a response My chart message response: PLEASE DO NOT SEND IN URGENT/EMERGENT MESSAGES VIA MY CHART. Please allow up to 24-48 hours for a response via my chart. Should you have questions or concerns, please call [phone] documented in this encounter [facility] 07-08-2022 History of Present illness Narrative Images [...] quickly and requires nap. 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 Better appetite with [...] surgery. Liquid BM noted immediately postop in May., gradually worsening up to 10-15t/d. 3-4t/d mixed [...] OR COLONOSCOPY DIAGNOSTIC 04/08/2022 APPENDECTOMY LAPAROSCOPIC 02/03/2022 [place], [place] Social History Socioeconomic History Marital status: [...] recommendations. MAMTA [facility] Neuroendocrine Tumor [facility] and Mohamud Aguirre [facility] Addendum by Dr. Ortega: IAttending Addendum:I [...] She was seen [facility] Archie Hugo [facility] in [facility] chest revealed [...] and fatigue. ECOG PS 1. 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 1. Metastatic, well differentiated, grade 1, appendicular [...] placebo groups was 14.3 and 6 months (p=[id number]), respectively. The CLARINET study, [which enrolled patients [...] 2. LAMN: Discussed with Dr. Vinicius Gomes/GI medon who recommended active surveillance. No role for adjuvant systemic therapy. Patient will continue to follow with Dr. Archie Hugo. 3. Hx of NET in family: referral to genetics 4. Transaminitis: discontinue hepatotoxins/acetaminophen. Repeat LFTs at [facility]. documented in this encounter [facility] 07-08-2022 Instructions Yina Amaya RN - [...] cause dizziness, drowsiness Referrals: Genetic referral to Ornda RN to do: Nursing education: New patient package Avoid hepatotoxic agents including stopping Tylenol Cancel pathology-done documented in this encounter [facility] 06-09-2022 History of Present illness Narrative Chief Complaint: Chief Complaint Patient presents with Follow-up HPI: Zainab Swift is a 27 y.o. female who presents to [facility] for post-operative [...] status. MAMTA Carrion documented in this encounter [facility] 06-09-2022 Instructions Veronique Calvin RN - 06/09/2022 1:15 PM EST Tele health visit with Raina Gomes CNP in 4 weeks on a Wednesday. Referral placed to neuroendocrine oncology. Return in [address] Hugo with scans same day. documented in this encounter [facility] 05-29-2022 Note Formatting of this [...] via wheelchair [facility] 1147. [facility] Miscellaneous Notes Patient and spouse given [...] and assistance is needed, please page the contact center agent PCRM at [phone]. Patient did well overnight. Patient pain mostly being controlled with epidural, but scheduled medications controlling her mild to moderate breakthrough pain. Patient with steady gait and only needig needing stand-by assistance. Patient now with bowel function and feeling hungry. Patient hopefully to have diet started today. Patient was able to be up in walking with stand-by assistance from multiple times yesterday. 2123: Juanitoer paged: Rm 1203, Nichoyling: FYI pt states that she can't tolerate taking the olanzapine disintegrating tablet because of the NG. Thanks [phone] Q1 safety rounds completed. Patient pain controlled [...] Providers Updated In IHIS Yes Contact Information Plate Painter Apprentice/SW Added to Care Team Yes This Skein Drier is Primary Plate Painter Apprentice/SW Yes (Antonio Jiang RN [facility] [phone]) Plate Painter Apprentice Name Pinky Barcenas RN [facility] Plate Painter Apprentice's Social Work Contact Name Bailey WILLAMS, [facility] Metal Tank Erector's Living Environment Lives With spouse Living Arrangements [...] Education And Care For Discharge? Sybil Swift [phone] Can Support Person Meet The Care Needs Of The Patient? 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 Employment/Financial Concerns no Source Of Income salary/wages Financial Concerns none Insurance Medical Insurance Verified Yes Prescription Coverage Yes Pharmacy updated in IS Yes Initial Discharge Planning Home Care Services (DATA ENTRY PROCESSOR) No Home Therapies (DATA ENTRY PROCESSOR) None DME (DATA ENTRY PROCESSOR) None Medical Supplies (DATA ENTRY PROCESSOR) None Patient Goal for Discharge Return home with assistance from family and friends Anticipated discharge disposition Home Anticipated Services at Discharge Outpatient follow up Anticipated Changes Related to Illness none Current Discharge Risk high risk diagnoses (i.e., CHF, Stroke, DM, chronic pain, abdominal pain, nausea and vomiting) Transportation Available car Home Care Services (DATA ENTRY PROCESSOR) Additional Home Care Services (DATA ENTRY PROCESSOR) no Assessment/Concerns to be Addressed Concerns To [...] All questions answered. 1514: Patient discharged from [facility] PACU per protocol. Patient transported via gurney with side rails up x2 with HOB>30 degrees to room 1204 [facility] by Natalia EMERY and Dang LISA. Family called to patient's bedside. 1310: Patient arrives in [facility] PACU from OR via gurney with side rails up x2 with HOB >30 degrees, accompanied by Anesthesiologist: Vinicius Gupta DO; Chayo Benson MD Senior Research Engineer: VIJAYA Gamboa; VIJAYA Lopez Improvement Advisor Assisting: Richard Bradshaw MD Daily Sales Audit Clerk: Wali Art. Patient placed on monitors, VSS. Report received from anesthesia. Patient assessed, see assessment. 1427: PACU labs and abdominal xray for NG placement cleared by Miguel Betancourt at this time. 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 JR drain placed in pelvis. SURGEON Surgeon(s) and Role: * Archie Hugo MD, PhD - Primary ANESTHESIOLOGIST Anesthesiologist: Vinicius Gupta DO; Chayo Benson MD Senior Research Engineer: VIJAYA Gamboa; VIJAYA Lopez Improvement Advisor Assisting: Richard Bradshaw MD Daily Sales Audit Clerk: Wali Art SURGICAL STAFF Acid Strength Inspector: Piedad Maki RN; Rima Medel RN Relief Acid Strength Inspector: Suri Stockton RN Relief Scrub: Marchella Bardelanmary Scrub Person: Heidy Skelton; Tammy Lopez [...] SURG PATH REQUEST Archie Hugo MD, PhD 05/22/202224 6 : PERITONEAL IMPLANT #3 Permanent SURG PATH SURG PATH REQUEST Archie Hugo MD, PhD 05/22/2022 0936 7 : PERITONEAL IMPLANT #4 Permanent SURG PATH SURG PATH REQUEST Archie Hugo MD, PhD 05/22/2022 0941 This procedure was not performed to treat colon cancer through resection Rodolfo Arnold MD May 22, 2022 1:06 PM Zainab Swift ([id number]) PRE OPERATIVE DIAGNOSIS Primary malignant neuroendocrine tumor [...] Hugo MD, PhD - Primary ANESTHESIOLOGIST Anesthesiologist: Vinicius Gupta DO; Chayo Benson MD Senior Research Engineer: VIJAYA Gamboa; VIJAYA Lopez Improvement Advisor Assisting: Richard Bradshaw MD Daily Sales Audit Clerk: Wali Art SURGICAL STAFF Acid Strength Inspector: Piedad Maki RN; Rima Medel RN Relief Acid Strength Inspector: Suri Stockton RN Relief Scrub: Ghanshyam Townsend Scrub Person: Heidy Skelton; Tammy Lopez Resident Assisting: Rodolfo Arnold MD; Narciso Hong MD COMPLICATIONS None ESTIMATED BLOOD LOSS 25 ml SPECIMENS ID Type Source Tests Collected by Time Destination 1 : CALCIFORM LIGAMENT Permanent SURG PATH SURG PATH REQUEST Archie Hugo MD, PhD 05/22/2022830 2 : Omentum Permanent SURG PATH SURG [...] 1:04 PM SURGEONS: Archie Hugo MD, PhD WINDOW TRIMMER APPRENTICE SURGEON: Rodolfo Arnold MD PROCEDURE: - Exploratory [...] second timeout per standard procedure at the [facility]. We made a midline incision using a [...] sarmiento stapler device. Next, we began the rofese-jc-zvdlogv dissection to mobilize the colonic mesentery. We [...] filed. We then proceeded with creating a gmph-wf-sgcs functional end-to-end anastomosis between the distal ileum [...] Seen 05/22/22 documented in this encounter [facility] 05-29-2022 Hospital course Narrative Discharge Summary [...] of Surgical Oncology Arrive at: Arrive to [facility] Floor Registration [phone] documented in this encounter [facility] 05-28-2022 Note Formatting of this n [...] and assistance is needed, please page the contact center agent PCRM at [phone]. [facility] 05-28-2022 History of Present illness [...] the care of Zainab Swift. Please page [phone] or call [phone] with any questions or concerns. Elroy Powell MD Acute Pain Service Senior Resident @ [phone] Subjective: Passing gas and having regular BMs. [...] Plan was discussed with Dr. Oanh Betancourt, DYNAMITE PACKING MACHINE FEEDER-CUSTOMER SERVICE SECURITY OFFICER [facility] surgery G3 service [id number] Anesthesia Acute Pain Progress Note Zainab Swift [...] acute pain service at [phone] or call [phone] with any questions or concerns. Yann Burr MD PGY-1 Anesthesiology Acute Pain Service Attending Addendum I personally examined and evaluated the patient. I reviewed the case and medical record with the resident. Based on the ROS, History, and Exam, I agree with the medical decision making. Osmin Urban M.D. Subjective: Passed gas yesterday and [...] with MAMTA Wisdom B surgery G3 service [id number] Psychosocial Assessment Per chart review, patient is a is a 27 y.o. 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 PMH: anxiety, borderline personality disorder, depression, GERD SW met with patient to introduce self, explain medical social worker role during inpatient stay, and answer patient questions. Patient was alert and oriented x4 and agreeable to SW visit. Information Source Information Source: patient , review of medical record, spouse Information Source Name: Arlette Swift Information Source Number: see demographics Contact Information Plate Painter Apprentice Name: Pinky Smith RN [facility] Plate Painter Apprentice's Social Work Contact Name: Bailey Quarles RINK RAT FISHER SWORDFISH Metal Tank Erector's Living Environment Lives With: spouse Living Arrangements: house (one story house wiith 3 Steps to enter) Provides Primary Care For: no one Primary Care Provided By: spouse/significant other, self Support System: Immediate family Able to Return to Prior Arrangements: yes Employment/Financial Employed?: Yes 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 Health Insurance / Rx: [id number] [place] [address] [address] [facility] Anticipated Discharge Plan: Pt report she plans to return home with care and transportation provided by her . Medical Team Considerations: None SW Interventions/Recommendations: Service SW name and contact information placed on white board in patient's room to contact as needed. SW will continue to remain available to provide assistance and support as needed during inpatient stay. IMER Christina, [employer] S[facility]C and [facility] Metal Tank Erector Pager: [phone] For Evening (4:30pm-8am) and Weekend SW needs please call [phone] or page [phone] Anesthesia Acute Pain Progress [...] acute pain service at [phone] or call [phone] with any questions or concerns. Yann Burr [...] with MAMTA Wisdom B surgery G3 service [phone] Anesthesia Acute Pain Progress Note Zainab Swift [...] acute pain service at [phone] or call [phone] with any questions or concerns. Yann Burr MD PGY-1 Anesthesiology Acute Pain Service Attending Addendum I personally examined and evaluated the patient. I reviewed the case and medical record with the resident. Based on the ROS, History, and Exam, I agree with the medical decision making. Osmin Urban M.D. Subjective: No acute events overnight. [...] examined this patient with the DIRECTOR OF RELIGIOUS ACTIVITIES/fellow/resident. I reviewed the history and exam detailed in the note and have edited it as necessary. I agree with the medical decision making unless otherwise noted below. The patient is doing well. Her pain is well controlled. She is mildly distended on exam. We will continue NPO with NGT until return of bowel function. Archie Hugo MD/PhD research aide Division of Surgical Oncology Department of Surgery [...] Plan was discussed with Dr. Oanh Colón, DYNAMITE PACKING MACHINE FEEDER-CUSTOMER SERVICE SECURITY OFFICER [facility] surgery G3 service [id number] [facility] Surgery Note Subjective: Patient doing well [...] acute pain service at [phone] or call [phone] with any questions or concerns. Yann Burr [...] acute pain service at [phone] or call [phone] with any questions or concerns. Yann Burr MD PGY-1 Anesthesiology Acute Pain Service Attending Addendum I personally examined and evaluated the patient. I reviewed the case and medical record with the resident. Based on the ROS, History, and Exam, I agree with the medical decision making. Osmin Urban M.D. Surgical Oncology Post-Op Check Note [...] acute pain service at [phone] or call [phone] with any questions or concerns. Richard Bradshaw MD vice president & general manager brand [place] [facility] documented in this encounter [facility] 05-27-2022 Note Formatting of this n [...] with stand-by assistance from multiple times yesterday. [facility] 05-26-2022 Consult note Formatting of [...] 1: Location: forearm, anterior, right Device/Lot Number: uxac-lgi-ldkobq catheter system Gauge/Length: 1 3/4 in length;20 gauge Unsuccessful Insertion Attempts: 1 Unsuccessful Attempt Location/Site: Pain Prevention/Patient Tolerance: distraction;tolerated well;appears comfortable Removal: Additional Comments: placed by Carla Mccurdy RN Lumen 2: Lumen 3: Peripheral IV Present on Admission: (Retired/Read Only) Location: (Retired/Read Only) Device: (Retired/Read Only) Gauge/Length: Training And Development Specialist/Lot Number: Unsuccessful Insertion Attempts: (Retired/Read Only) [...] care of this patient. Vascular Access Team [id number] [facility] 05-26-2022 Consult note Formatting of [...] 1: Location: forearm, anterior, right Device/Lot Number: bajj-ldv-dmteyb catheter system Gauge/Length: 1 3/4 in length;20 gauge Unsuccessful Insertion Attempts: 1 Unsuccessful Attempt Location/Site: Pain Prevention/Patient Tolerance: distraction;tolerated well;appears comfortable Removal: Additional Comments: placed by Carla Mccurdy RN Lumen 2: Lumen 3: Peripheral IV Present on Admission: (Retired/Read Only) Location: (Retired/Read Only) Device: (Retired/Read Only) Gauge/Length: Training And Development Specialist/Lot Number: Unsuccessful Insertion Attempts: (Retired/Read Only) [...] care of this patient. Vascular Access Team [id number] documented in this encounter [facility] 05-25-2022 Note Formatting of this n ote might be different from the original. 2124: [facility] paged: Rm 1206, Kryling: FYI pt states that she can't tolerate taking the olanzapine disintegrating tablet because of the NG. Thanks [phone] [facility] 05-22-2022 Note Formatting of this [...] outcomes by discharge/transition of care. Outcome: Ongoing [facility] 05-22-2022 Note Formatting of this n ote might be different from the original. I certify that this patient requires inpatient services at this time. I anticipate the expected length of stay will include at least two midnights. Inpatient services are due to the following medical concerns appendiceal NET. Plans for post hospitalization care will be discharge to home. [facility] 05-22-2022 Note Formatting of this n ote is different from the original. 05/22/22 1608 Referral Information Arrived From home or self-care;operating room Readmission Information Was patient readmitted within 30 Days? No Information Source Information Source patient Information Source Name Zainab Swift-in person Information Source Number Demographics reviewed Outpatient Providers Outpatient Providers Updated In IHIS Yes Contact Information Plate Painter Apprentice/SW Added to Care Team Yes This Skein Drier is Primary Plate Painter Apprentice/SW Yes (Antonio Jiang RN [facility] [phone]) Plate Painter Apprentice Name Pinky Barcenas RN [facility] Plate Painter Apprentice's Social Work Contact Name Bailey Magallanes MSW, [employer] Metal Tank Erector's Living Environment Lives With spouse Living Arrangements [...] Education And Care For Discharge? Sybil Swift [phone] Can Support Person Meet The Care Needs Of The Patient? 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 Employment/Financial Concerns no Source Of Income salary/wages Financial Concerns none Insurance Medical Insurance Verified Yes Prescription Coverage Yes Pharmacy updated in IH Yes Initial Discharge Planning Home Care Services (DATA ENTRY PROCESSOR) No Home Therapies (DATA ENTRY PROCESSOR) None DME (DATA ENTRY PROCESSOR) None Medical Supplies (DATA ENTRY PROCESSOR) None Patient Goal for Discharge Return home with assistance from family and friends Anticipated discharge disposition Home Anticipated Services at Discharge Outpatient follow up Anticipated Changes Related to Illness none Current Discharge Risk high risk diagnoses (i.e., CHF, Stroke, DM, chronic pain, abdominal pain, nausea and vomiting) Transportation Available car Home Care Services (DATA ENTRY PROCESSOR) Additional Home Care Services (DATA ENTRY PROCESSOR) no Assessment/Concerns to be Addressed Concerns To [...] Lines/Drains/Tubes Abdominal incision with dressing x 2 [place] drain x 1-under distal dressing NG-low wall [...] for discharge planning. Medical team updated. [facility] 05-22-2022 Note Formatting of this n ote might be different from the original. 1512: Report called to Jevon EMERY on [facility]. All questions answered. 1514: Patient discharged from [facility] PACU per protocol. Patient transported via gurney with side rails up x2 with HOB>30 degrees to room 1204 [facility] by Natalia EMERY and Dang LISA. Family [facility] bedside. [facility] Note Formatting of this n ote might be different from the original. 1310: Patient arrives in [facility] PACU from OR via gurney with side rails up x2 with HOB >30 degrees, accompanied by Anesthesiologist: Vinicius Gupta DO; Chayo Benson MD Senior Research Engineer: VIJAYA Gamboa; VIJAYA Lopez Improvement Advisor Assisting: Richard Bradshaw MD Daily Sales Audit Clerk: Wali Art. Patient placed on monitors, VSS. Report received from anesthesia. Patient assessed, see assessment. 1427: PACU labs and abdominal xray for NG placement cleared by Miguel Betancourt at this time. [facility] 05-22-2022 Note Formatting of this n ote is different from the original. 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 JR drain placed in pelvis. SURGEON Surgeon(s) and Role: * Archie Hugo MD, PhD - Primary ANESTHESIOLOGIST Anesthesiologist: Vinicius Gupta DO; Chayo Benson MD Senior Research Engineer: VIJAYA Gamboa; VIJAYA Lopez Improvement Advisor Assisting: Richard Bradshaw MD Daily Sales Audit Clerk: Wali Art SURGICAL STAFF Acid Strength Inspector: Pieadd Maki RN; Rima Medel RN Relief Acid Strength Inspector: Suri Stockton RN Relief Scrub: Ghanshyam Townsend [...] Arnold MD May 22, 2022 1:06 PM [facility] Work Phone: 05-22-2022 Note Formatting of this n ote is different from the original. Zainab Jamison ([id number]) PRE OPERATIVE DIAGNOSIS Primary malignant neuroendocrine tumor [...] Hugo MD, PhD - Primary ANESTHESIOLOGIST Anesthesiologist: Vinicius Gupta DO; Chayo Benson MD Senior Research Engineer: VIJAYA Gamboa; VIJAYA Lopez Improvement Advisor Assisting: Richard Bradshaw MD Daily Sales Audit Clerk: Wali Art SURGICAL STAFF Acid Strength Inspector: Piedad Maki RN; Rima Medel RN Relief Acid Strength Inspector: Suri Stockton RN Relief Scrub: Ghanshyam Townsend [...] Hong MD May 22, 2022 1:04 PM [facility] Work Phone: 05-22-2022 Note Formatting of this n ote is different from the original. SURGEONS: Archie Hugo MD, PhD WINDOW TRIMMER APPRENTICE SURGEON: Rodolfo Arnold MD PROCEDURE: - Exploratory [...] second timeout per standard procedure at the [facility]. We made a midline incision using a [...] sarmiento stapler device. Next, we began the fimirw-kl-mztvnjx dissection to mobilize the colonic mesentery. We [...] filed. We then proceeded with creating a rvsx-am-xuzq functional end-to-end anastomosis between the distal ileum [...] participated for the entirety of the case. [facility] Work Phone: 05-22-2022 Nurse Surgical operation note 0815 Family notified of surgery start 1021, 121 Family updated 1228 Handoff report sent to PACU charge nurse 1255 PACU given notice of arrival 1309 Patient extubated and transported to PACU with anesthesia at bedside and on oxygen inhalation Rima Meedl RN [facility] 05-22-2022 Nurse Note 0815 Family notified of surgery start 1021, 121 Family updated 1228 Handoff report sent to PACU charge nurse 1255 PACU given notice of arrival 1309 Patient extubated and transported to PACU with anesthesia at bedside and on oxygen inhalation Rima Medel RN documented in this encounter [facility] 05-22-2022 Note Formatting of this [...] Visit Frequency Sat Last Date Seen 05/22/22 [facility] 05-22-2022 History and physical note [...] N/A; Surgeon: Archie Hugo MD, PhD; Location: [facility] MAIN OR COLONOSCOPY DIAGNOSTIC 04/08/2022 APPENDECTOMY LAPAROSCOPIC 02/03/2022 [place], [place] Family History Family History Problem Relation [...] day before surgery 05/21/2022 04/23/22 Elsie Mason APRN-CUSTOMER SERVICE SECURITY OFFICER FLUoxetine 40 MG capsule 40 mg, Oral, [...] hours as instructed. 05/21/2022 04/23/22 Elsie Mason APRN-CUSTOMER SERVICE SECURITY OFFICER Review of Systems Denies the following: Arrhythmias, [...] to the patient's satisfaction. Liza Cisneros PA-C [facility] 05-22-2022 History and physical note [...] N/A; Surgeon: Archie Hugo MD, PhD; Location: [facility] MAIN OR COLONOSCOPY DIAGNOSTIC 04/08/2022 APPENDECTOMY LAPAROSCOPIC 02/03/2022 [place], [place] Family History Family History Problem Relation [...] hours as instructed. 05/21/2022 04/23/22 Elsie Mason APRN-CUSTOMER SERVICE SECURITY OFFICER Review of Systems Denies the following: Arrhythmias, [...] Liza Cisneros PA-C documented in this encounter [facility] 05-21-2022 Hospital Discharge instructions Pinky Be RN - 05/21/2022 10:38 AM EDT Contacts: Archie Hugo MD Office Number: [phone] Option 1 During office hours, Wednesday through Wednesday, 8:00 AM to 4:30 PM, call the office if you have any questions or concerns. After hours, weekends and holidays call the office number and you will be transferred to the After Hours Nurse Line. Call 911 for Emergencies. Your egg caser (PCRM) has arranged your appointments for follow [...] pharmacist before using any other medicine, including wtub-hbf-zknuyfk medicines, vitamins, and herbal products. Avoid taking [...] to request information or check hours. [facility] TonchidotLINE: or , www.EvntLive [facility] Classes: Casualing for Life, Integrative Care Monthly Classes [facility] offers a series of [...] families and friends. For more information, contact CollegePostings at or visit our website at www.EvntLive Resources in [facility] include the following: The [employer] Cancer Society, [facility] . [facility] The Cancer Support CommunityRobert Breck [facility]: http://cancersupportohio.org/prog txrv-ccn-ijemtyxv/virtual-communi ty/ National Resources: [place] Cancer Society (ACS), www.cancer.org 0-335-XUI-2345, [place]: 3-997-LEW-[place]. National Comprehensive Cancer [facility] (NCCN) 3-967-746-NCCN, www.nccn.org National Cancer [place] (NCI) 7-621-3-CANCER, www.nci.gov The following attachments cannot be sent through Care Everywhere.Lovenox or Heparin: Subcutaneous Injections ([facility]) (Albanian)documented in this encounter [facility] 04-29-2022 Note PROCEDURE: XR HIP RT [...] authenticated by: CAROLYN WALSH Date: 2022-04-29 16:59 [facility] 04-29-2022 Note PROCEDURE: XR HIP [...] by: CAROLYN WALSH Date: 2022-04-29 16:59 [facility] 04-29-2022 Note PROCEDURE: XR HIP RT 2 3V WO PELVIS, XR TIB_FIB RT 2V, XR FEMUR RT HISTORY: Pain in right leg , chronic COMPARISON: None. FINDINGS: BONES:No fracture, acute abnormality, or significant arthropathy. SOFT TISSUES:No visible soft tissue swelling. EFFUSION:None visible. OTHER: Negative. IMPRESSION: 1. Normal appearance of the right hip, femur, and tibia-fibula. Electronically authenticated by: CAROYLN WALSH Date: 2022-04-29 16:59 [facility] 03-19-2022 History of Present illness Narrative Images [...] appendectomy on 02/03/22 for acute appendicitis at [facility]. 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 She presents to [facility] Oncology clinic for surgical [...] History: Procedure Laterality Date APPENDECTOMY LAPAROSCOPIC 02/03/2022 [place], [place] No Known Allergies Current Outpatient Medications [...] in our surgical oncology clinic at [facility], [facility] and [facility]. As you know, Ms. Swift is [...] the future. Sincerely, Archie Hugo MD, PhD research aide Department of Surgery Division [place] [address] Office [phone] Fax [email or web address] documented in this encounter [facility] 03-19-2022 Instructions Rhoda Lazo RN - 03/19/2022 3:00 PM EDT Pre-operative Information As a [facility] at the [facility], you may work with various departments and have help from many professionals. One of these is a surgical oncologist who works in the Division of Surgical Oncology. Surgical oncologists are surgeons who have completed advanced training to care for cancer patients. All of the surgical oncologists at the [facility] have completed specialized training and are board-certified. The surgeon who will be performing your surgery is Archie Hugo M.D., research aide. [address], [place] [address] Office phone: [phone] We are available to take calls Wednesday-Wednesday 8:00am-4:30pm. During non-business hours and holidays phone calls will be forwarded to a service covering our patients. Please communicate with our team through [facility] for non-urgent issues only. Office fax: [phone] Clinic Nurse Practitioner aRina Eliseo Board Layer Sandra Kennedy Foil Wrapper Iris Giraldo OUR TEAM OF EXPERTS Raissa Isrrael is associated with The [facility] and is an academic medical center. Dr. Skip Le is an attending physician, the tunnel heading supervisor of your care. Listed below are the members of his team: Surgical Oncology Fellow: a physician who completed residency and is obtaining further education. Resident(s): a physician who has finished phd internship and is receiving training in a specialized area (i.e. surgery) Collateral Clerk(s): a physician who has completed medical school and is in the 1st year of training Nurse Practitioner (DIRECTOR OF RELIGIOUS ACTIVITIES): A registered nurse with a master's or doctoral degree who is licensed to practice; Clinic: [facility]: [facility], [facility], [facility] Jeff[facility], Kika Colón, [facility], Monica Jackson, [facility] Patient Care Japanese Interpreter (PCRM): A registered nurse who coordinates care [...] to 2 weeks to complete your request. [phone] DISABILITY FORMS This category includes any form [...] for a private room? All rooms at [facility] are private. Do you have a medical social worker available? A medical social worker is assigned to our team. How can I help my family plan for my discharge? From the moment a patient is admitted, the [facility] begin to plan for the patient s discharge. Plan to leave at 11am on the day of discharge. Discharge instructions will be given to the patient. The hospital nurse will discuss these with you. Does the [facility] precertify my surgery? Yes. The precertification department at [facility] will notify your insurance carrier. Who should I contact if I anticipate difficulty paying my bill? We want to make sure all patients have access to the quality healthcare services of [facility], and we are committed to working with you and your family to obtain appropriate financial assistance. You may contact the Office of Financial Counseling [phone] weekdays between 8am and 5pm to help determine whether you might qualify for an assistance program. Do I need to bring clothes from home to wear at the hospital? The [facility] will provide you with personal items. You may wish to bring a robe or slippers. Does the [facility] have a designated area for smoking? The [facility] does not permit smoking inside or outside the hospitals including parking areas and sidewalks. If you would like to quit, you can contact a tobacco medical logistics specialist at [phone] or the [place] Tobacco QUIT LINE at [phone]. Where can I find information about visitation, [...] someone after business hours? The office number, [phone] or [phone], is connected to an answering service after 4:30pm each weekday and on weekends, available 08/02. What number should I call if I have billing questions? Please call [facility] s Central Business Office at [phone]. Please Note: In regards to terminal computer operator pain control. You may need narcotic [...] call by 4 p.m., please call the [facility] at . Follow these [...] the hospital. Do not wear makeup, nail bolivian or hair pins to the hospital. Please [...] a living will or durable power of corporate associate attorney, please bring a copy of the documents with you. IF YOU USE CPAP BRING YOUR MACHINE WITH YOU TO THE HOSPITAL ALONG WITH THE PRESCRIPTION FOR CPAP PRESSURE LEVELS If you develop any illness, such as a cold, sore throat, cough, or fever, before your surgery, call the [facility] at and our office [...] pulp Popsicles Ice Soft drinks Gatorade (Lemon [place] preferred) Clear broth or bouillon Jello Coffee [...] not red, orange, or purple in color. Lemon-tatitlek is preferred. You may need to pour [...] program. You can also get help through: [facility] Tobacco Dependency [facility], National Quit Line, Nigerian Lung Association, Nigerian Cancer Society, Smokefree.gov website Stop Alcohol Use [...] helpful:Alcoholics Anonymous (AA) http://www.aa.org/ Rethinking Drinking https://www.rethinkingdrinking.[facility].nih.gov/ National [place] of Alcohol Abuse and Alcoholism https://niaaa.nih.gov/ Sasha Head 657-025-2140 -Inpatient, partial hospitalization and outpatient services for [...] Patient Controlled Analgesia (also known as a RUBBER GOODS TESTER) A RUBBER GOODS TESTER is a pain pump that could be [...] AM of surgery documented in this encounter [facility] 02-19-2022 Miscellaneous Notes Addended by: KARINE GALVAN on: 02/19/2022 04:15 PM Modules accepted: Orders INTESTINAL REFERRAL Let the person providing referral info know that you must speak directly to the patient. Our team cannot proceed with intake without communicating directly with the patient. 1) What is your (the patient's) direct phone contact number?- [phone] 2) What is your referring diagnosis? Appendix [...] resources available to cover travel expenses to [facility]? Yes We are currently flexible in offering initial virtual consultations for both surgery and transplant ONLY to patients living in [place], [place], and [place] through May 18, 2022. This may expand to other states depending on where the surgeon who conducts your initial visit is licensed (Dr. Wyatt is licensed in [place], [place], and [place]). If you are living in another state and desire an initial virtual consultation, you may choose to purchase a KonTEM. (Surgical or transplant evaluations are highly individualized and may be conducted either through your local providers or at the [facility]. The plan for your evaluation will [...] for any pre-surgical testing done at the [facility], and for any post-surgical stay in [place] depending on your post-surgical course. 8) Would you be interested in participating in [facility] Care Online Virtual Visits for the psychosocial screening? - Yes If the patient says no, proceed as normal. If yes, please e-mail the patient and copy the medical social worker on it. She will need [...] have been over the past 1 year? [facility] (Submit ALL template in E-health, AND for [...] 15) Do you have a Power of Senior Power Scheduler (POA)? Do you have a Living Will?- No If so, please bring a copy of this to your appointment. 16) For females: When and where was your last mammogram (40 and up) and pap smear (16 and up)? - Needs to be within last year.- PAP- Never had & Mammo- No (Submit request in E-artaculous) 17) For all patients: When and where was your last dental visit? - Needs to be within last 6 months.- about 6 months ago (Submit request in E-health) 18) If transplant- Ask patient to obtain their immunization records and have them sent to us via mail/fax.- COVID- Yes The patient has been entered into Edit, chart is created, and request to ComplyMD for medical records has been generated. Financial clearance has been submitted for rehab/transplant (if on TPN or has dysmotility, submit for both rehab & transplant). Chart will be given to improvement coordinator. Referral received from Dr. Rodney Olivas from [facility] ([phone]) to Dr. Davies. 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 Will call patient to start intake. documented in this encounter [facility] 12-22-2021 Evaluation note Encounter Date Diagnosis [...] Follow up with primary care provider or jazz singer if no improvement of symptoms. 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 documented [facility] Diagnosis Primary malignant neuroendocrine tumor of appendix [facility] Diagnosis Primary malignant neuroendocrine tumor of appendix- Primary 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 documented [facility] Diagnosis Primary malignant neuroendocrine tumor of appendix Post-operative pain Other acute postoperative pain Primary malignant neuroendocrine tumor of appendix documented [facility] Diagnosis Primary malignant neuroendocrine tumor of appendix- Primary [facility] Diagnosis Primary malignant neuroendocrine tumor of appendix- Primary [facility] Diagnosis Primary malignant neuroendocrine tumor of appendix documented [facility] Diagnosis Primary malignant neuroendocrine tumor of appendix documented [facility]* Diagnosis Carcinoid syndrome- Primary SOB (shortness of breath) Shortness of breath Tachycardia Tachycardia, unspecified Antinuclear antibody (HUNTER) titer greater than 1:80 Primary malignant neuroendocrine tumor of appendix [facility] Diagnosis Primary malignant neuroendocrine tumor of appendix [facility] Diagnosis Carcinoid syndrome SOB (shortness of breath) Shortness of breath Tachycardia Tachycardia, unspecified Primary malignant neuroendocrine tumor of appendix [facility] Diagnosis Fibromyalgia muscle pain- Primary Mylagia and myositis, unspecified [facility]* Diagnosis Primary malignant neuroendocrine tumor of appendix- Primary [facility] Diagnosis Primary malignant neuroendocrine tumor of appendix [facility] Diagnosis 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 Neoplasm of unspecified nature of digestive system documented [facility] Diagnosis Third trimester state, incidental documented in this encounter [facility]* Diagnosis Elevated liver enzymes- Primary Nonspecific elevation of levels of transaminase or lactic acid dehydrogenase (LDH) [facility] Diagnosis 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 Neoplasm of unspecified nature of digestive system Diarrhea, unspecified type Primary malignant neuroendocrine tumor of appendix Carcinoid syndrome Tachycardia Tachycardia, unspecified SOB (shortness of breath) Shortness of breath [facility] Diagnosis 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 Neoplasm of unspecified nature of digestive system documented [facility] assessment information available [facility] Work Phone: Evaluation note* Diagnosis Primary malignant neuroendocrine tumor of appendix- Primary [facility] Diagnosis Primary malignant neuroendocrine tumor of appendix [facility] Diagnosis Primary malignant neuroendocrine tumor of appendix- Primary Primary malignant neuroendocrine tumor of appendix [facility] Diagnosis Primary malignant neuroendocrine tumor of appendix [facility] Diagnosis Well woman exam with routine gynecological exam Routine gynecological examination Menorrhagia with regular cycle documented in this encounter [facility] Healthcare[facility] note* Diagnosis Colitis- Primary Other and unspecified noninfectious gastroenteritis and colitis Black stools Nonspecific abnormal finding in stool contents Diarrhea, unspecified type 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 [facility] Diagnosis Colitis Other and unspecified noninfectious gastroenteritis and colitis Black stools Nonspecific abnormal finding in stool contents [facility] Diagnosis Low grade mucinous neoplasm of appendix Neoplasm of unspecified nature of digestive system Primary malignant neuroendocrine tumor of appendix [facility] Diagnosis Low grade mucinous neoplasm of appendix Neoplasm of unspecified nature of digestive system Primary malignant neuroendocrine tumor of appendix [facility] Diagnosis Primary malignant neuroendocrine tumor of appendix- Primary [facility] Diagnosis Chronic migraine without aura without status migrainosus, not intractable- Primary Chronic migraine without aura, without mention of intractable migraine without mention of status migrainosus [facility] Diagnosis Pelvic congestion syndrome Pelvic pain in female Unspecified symptom associated with female genital organs documented in this encounter [facility]* Diagnosis Chronic migraine without aura without status migrainosus, not intractable- Primary Chronic migraine without aura, without mention of intractable migraine without mention of status migrainosus [facility] Diagnosis Chronic migraine without aura without status migrainosus, not intractable- Primary Chronic migraine without aura, without mention of intractable migraine without mention of status migrainosus documented [facility] Diagnosis Chronic migraine without aura without status migrainosus, not intractable- Primary Chronic migraine without aura, without mention of intractable migraine without mention of status migrainosus [facility] Diagnosis Pre-op examination Pelvic congestion syndrome Pelvic pain in female Unspecified symptom associated with female genital organs documented in this encounter [facility]* Diagnosis 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 Other and unspecified nonspecific immunological findings Rosacea Interstitial cystitis Chronic interstitial cystitis Polyarthralgia Pain in joint, multiple sites Fibromyalgia Mylagia and myositis, unspecified Chronic abdominal pain Abdominal pain, unspecified site [facility] Diagnosis Primary malignant neuroendocrine tumor of appendix [facility] Diagnosis Primary malignant neuroendocrine tumor of appendix [facility] Diagnosis Pre-op examination Pelvic pain Pelvic congestion syndrome documented in this encounter [facility] HealthcareHistory general Narrative - Reported* Type Description Date Medical History chronic depression Black Lotus Other Hospital course Narrative No data available for this section [facility] Discharge instructions No data available for this section [facility] InstructionsNot on filedocumented in this encounter [facility] filedocumented in this encounter [facility]Not on filedocumented in this encounter [facility] No data available for this section [facility] Reason for referral (narrative)* (Routine) Specialty Diagnoses / Procedures Referred By Contac t Referred To Contact ISRRAEL [address] [place] [address] Referral ID Status Reason Start Date Expiration Date Visits Re quested Visits Authorized * (Routine) - New Request Specialty Diagnoses / Procedures Referred By Contac t Referred To Contact Procedures PLATELET MONITORING PER PROTOCOL Archie Hugo MD, PhD [address] [place] [address] Referral ID Status Reason Start Date Expiration Date V isits Requested Visits Authorized [id number] New Request 05/22/2022 06/16/2023 1 1 * (Routine) - New Request Specialty Diagnoses / Procedures Referred By Contac t Referred To Contact Procedures DVT/VTE RISK ASSESSMENT Archie Hugo MD, PhD [address] [place] [address] Referral ID Status Reason Start Date Expiration Date V isits Requested Visits Authorized [id number] New Request 05/22/2022 06/16/2023 1 1 * (Routine) - New Request Specialty Diagnoses / Procedures Referred By Contac t Referred To Contact Procedures NO MECHANICAL DVT PROPHYLAXIS Liza Cisneros PA-C [address] [place] [address] Referral ID Status Reason Start Date Expiration Date V isits Requested Visits Authorized [id number] New Request 05/22/2022 06/16/2023 1 1 [facility] for referral (narrative)* Consultation (Routine) - New Request Specialty Diagnoses / Procedures Referred By Contac t Referred To Contact Oncology Diagnoses Primary malignant neuroendocrine tumor of appendix Raina Gomes DYNAMITE PACKING MACHINE FEEDER-CUSTOMER SERVICE SECURITY OFFICER 20[address] [facility] [address] [place] [address] Andreas Ortega MD, MPH 2049 [facility] [address] [place] [phone] Referral ID Status Reason Start Date Expiration Date V isits Requested Visits Authorized [id number] New Request 06/09/2022 07/04/2023 1 1 Electronically signed by Raina Gomes DYNAMITE PACKING MACHINE FEEDER-[facility] at 06/09/2022 2:53 PM EST * MRI/CAT Scan (Routine) - New Request Specialty Diagnoses / Procedures Referred By Contac t Referred To Contact Diagnoses Primary malignant neuroendocrine tumor of appendix Procedures CT ABDOMEN/PELVIS WITH CONTRAST CHG CT SCAN,ABDOMENT AND PELVIS,W CONTRAST Raina Gomes DYNAMITE PACKING MACHINE FEEDER-CUSTOMER SERVICE SECURITY OFFICER [address] [place] [address] Referral ID Status Reason Start Date Expiration Date V isits Requested Visits Authorized [id number] New Request 06/09/2022 07/04/2023 1 1 Electronically signed by Raina Gomes DYNAMITE PACKING MACHINE FEEDER-[facility] at 06/09/2022 1:45 PM EST [facility] for referral (narrative)* Consultation (Routine) - New Request Specialty Diagnoses / Procedures Referred By Contac t Referred To Contact Genetics Diagnoses Primary malignant neuroendocrine tumor of appendix Yudelka Moralez DYNAMITE PACKING MACHINE FEEDER-CUSTOMER SERVICE SECURITY OFFICER [address] [place] [address] Erin Stoner, [facility] [address] [address] Referral ID Status Reason Start Date Expiration Date V isits Requested Visits Authorized [id number] New Request 07/08/2022 08/02/2023 1 1 * MRI/CAT Scan (Routine) - New Request Specialty Diagnoses / Procedures Referred By Contac t Referred To Contact Diagnoses Primary malignant neuroendocrine tumor of appendix Procedures CT ABDOMEN/PELVIS WITH AND WITHOUT CONTRAST CHG CT SCAN,ABDOMENT AND PELVIS,Andreas Ellis MD, MPH [address] [address] Referral ID Status Reason Start Date Expiration Date V isits Requested Visits Authorized [id number] New Request 07/08/2022 08/02/2023 1 1 * Radiology (Routine) - New Request Specialty Diagnoses / Procedures Referred By Contac t Referred To Contact Diagnoses Primary malignant neuroendocrine tumor of appendix Procedures NUC PET NEUROENDOCRINE CHG NUC THERAPY HYPERTHYROID SUBSEQUENT Yudelka Moralez APRN-CUSTOMER SERVICE SECURITY OFFICER [address] [place] [address] Referral ID Status Reason Start Date Expiration Date V isits Requested Visits Authorized [id number] New Request 07/08/2022 08/02/2023 1 1 [facility] for visit Narrative* Auth/Cert Specialty Diagnoses / Procedures Referred By Katharine morales Referred To Contact Diagnoses 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 Procedures CT ABDOMEN/PELVIS WITH AND WITHOUT CONTRAST CHG CT ABDOMEN & PELVIS W/O CONTRST 1/> BODY RE Yudelka Moralez, DYNAMITE PACKING MACHINE FEEDER-[facility] [address] [place] [phone] Phone: tel: fax: Referral ID Status Reason Start Date Expiration Date Visits Re quested Visits Authorized [id number] Closed 02/10/2024 03/06/2025 1 1 [facility] MRI/CAT Scan (Routine) - Closed Specialty Diagnoses / Procedures Referred By Contac t Referred To Contact Diagnoses Primary malignant neuroendocrine tumor of appendix Procedures CT ABDOMEN/PELVIS WITH AND WITHOUT CONTRAST CHG CT ABD&PLV W/O CNTRST /BTH FLWD CNTRST /BTH Any Cooley, DYNAMITE PACKING MACHINE FEEDER-CUSTOMER SERVICE SECURITY OFFICER [address] [place] [address] Phone: tel: fax: Referral ID Status Reason Start Date Expiration Date Visits Re quested Visits Authorized [id number] Closed 09/28/2024 10/23/2025 1 1 [facility] Summary Purpose Family History No [...] liver enzymes Procedures TRANSIENT ELASTOGRAPHY Dolores Johnson, DYNAMITE PACKING MACHINE FEEDER-CUSTOMER SERVICE SECURITY OFFICER [address] [place] [address] Referral ID Status Reason Start Date Expiration Date V isits Requested Visits Authorized [id number] New Request 11/26/2023 12/20/2024 1 1 Specialty Diagnoses / Procedures Referred By Contac t Referred To Contact Echocardiography Diagnoses Carcinoid syndrome SOB (shortness of breath) Tachycardia Procedures ECHOCARDIOGRAM CT ECHO HEART XTHORACIC,COMPLETE W DOPPLER Yudelka Moralez APRN-TASH [address] [place] [phone] Echocardiography [place] [address] [place] [address] Referral ID Status Reason Start Date Expiration Date V isits Requested Visits Authorized [id number] Auth Not Needed 10/07/2022 11/01/2023 1 1 Specialty Diagnoses / Procedures Referred By Contac t Referred To Contact Diagnoses Primary malignant neuroendocrine tumor of appendix Procedures CT NECK WITH CONTRAST CT CT NECK TISSUE CONTRAST Yudelka Moralez APRN-CUSTOMER SERVICE SECURITY OFFICER [address] [place] [phone] Referral ID Status Reason Start Date Expiration Date V isits Requested Visits Authorized [id number] New Request 10/07/2022 11/01/2023 1 1 Specialty Diagnoses / Procedures Referred By Contac t Referred To Contact Diagnoses Carcinoid syndrome SOB (shortness of breath) Tachycardia Primary malignant neuroendocrine tumor of appendix Procedures CT CHEST WITH CONTRAST CHG DIAGNOSTIC COMPUTED TOMOGRAPHY THORAX W/CONTRAST Yudelka Moralez APRN-CUSTOMER SERVICE SECURITY OFFICER [address] [place], [place] Referral ID Status Reason Start Date Expiration Date V isits Requested Visits Authorized [id number] New Request 10/07/2022 11/01/2023 1 1 Specialty Diagnoses / Procedures Referred By Contac t Referred To Contact Oncology Diagnoses Carcinoid syndrome SOB (shortness of breath) Tachycardia Yudelka Moralez APRN-CUSTOMER SERVICE SECURITY OFFICER [address] [place] [address] Referral ID Status Reason Start Date Expiration Date V isits Requested Visits Authorized [id number] New Request 10/07/2022 11/01/2023 1 1 Specialty Diagnoses / Procedures Referred By Contac t Referred To Contact Rheumatology Diagnoses Antinuclear antibody (HUNTER) titer greater than 1:80 Yudelka Moralez DYNAMITE PACKING MACHINE FEEDER-CUSTOMER SERVICE SECURITY OFFICER [address] [place] [address] Referral ID Status Reason Start Date Expiration Date V isits Requested Visits Authorized [id number] New Request 10/07/2022 11/01/2023 1 1 Specialty Diagnoses / Procedures Referred By Contac t Referred To Contact Diagnoses Primary malignant neuroendocrine tumor of appendix Procedures CT ABDOMEN/PELVIS WITH CONTRAST CHG CT SCAN,ABDOMENT AND PELVIS,W CONTRAST Raina Gomes, DYNAMITE PACKING MACHINE FEEDER-CUSTOMER SERVICE SECURITY OFFICER 2049 [facility] [address]th [place] [address] Referral ID Status Reason Start Date Expiration Date Visits Re quested Visits Authorized [id number] Closed 03/19/2022 04/13/2023 1 1 Specialty Diagnoses / Procedures Referred By Contac t Referred To Contact TRANSPLANT Diagnoses Cancer of appendix (HCC) Procedures CONSULT TO TRANSPLANT CENTER EXPLORATORY LAPAROTOMY CELIOTOMY W/WO BIOPSY SPX Vernon Davies MD [address] [place] [address] [facility] [address] [place] [address] Referral ID Status Reason Start Date Expiration Date Visits Requested Visits Authorized [id number] Pending Review Financial Clearance Required - OON Payor 02/19/2022 02/19/2023 99 99 Chief Complaint and Reason for Visit Chief Complaint n63.0 Chief Complaint n63.0 Unknown Chief Complaint Admit Date Unknown November 02, 2024 1:1 2pm Additional Source Comments INFORMATION SOURCE (unrecogn ized section and content) DATE CREATED AUTHOR 02/19/2021 [facility] DATE CREATED AUTHOR AUTHOR'S ORGANIZ ATION 12/25/2022 [facility] DATE CREATED AUTHOR AUTHOR'S ORGANIZ ATION 04/21/2024 [facility] DATE CREATED AUTHOR AUTHOR'S ORGANIZ ATION 11/05/2024 [facility] DATE CREATED AUTHOR AUTHOR'S ORGANIZ ATION 02/05/2025 [facility] DATE CREATED AUTHOR AUTHOR'S ORGANIZ ATION 03/05/2025 [facility] DATE CREATED AUTHOR AUTHOR'S ORGANIZ ATION 03/09/2025 Rohit Haq [facility] REASON FOR VISIT (unrecogniz ed section and content) Reason Comments New Patient Specialty Diagnoses / Procedures Referred By Katharine t Referred To Contact Rheumatology Diagnoses Primary malignant neuroendocrine tumor of appendix Any Cooley, DYNAMITE PACKING MACHINE FEEDER-CUSTOMER SERVICE SECURITY OFFICER [address] [place] [address] Phone: tel: fax: Referral ID Status Reason Start Date Expiration Date V isits Requested Visits Authorized [id number] Pending Review 09/28/2024 10/23/2025 1 1 Specialty Diagnoses / Procedures Referred By Katharine morales Referred To Contact Neurology Diagnoses Chronic nonintractable headache, unspecified headache type Any Cooley, DYNAMITE PACKING MACHINE FEEDER-CUSTOMER SERVICE SECURITY OFFICER [address] [place] [address] Phone: tel: fax: [facility] [address] 12[address] [place] [address] Phone: tel: fax: Referral ID Status Reason Start Date Expiration Date V isits Requested Visits Authorized [id number] Authorized 09/28/2024 10/23/[phone] Reason Comments Labs Only Specialty Diagnoses / Procedures Referred By Katharine t Referred To Contact Clinical Pathology/Laboratory Medicine Diagnoses 1st floor labs jordan pt prior to scan Procedures BLOOD DRAW Andreas Ortega MD, MPH [address] [place] [address] [place] [address] Phone: tel: fax: Clinical Lab [place] [address] [address] [place] 1[address] [place] [address] Phone: tel: fax: Referral ID Status Reason Start Date Expiration Date Visits Re quested Visits Authorized [id number] Closed 09/18/2024 10/13/2025 1 1 Reason Comments Referral Request Specialty Diagnoses / Procedures Referred By Contac t Referred To Contact Diagnoses Primary malignant neuroendocrine tumor of appendix Procedures CT ABDOMEN/PELVIS WITH CONTRAST CHG CT SCAN,ABDOMENT AND PELVIS,W CONTRAST Raina Gomes DYNAMITE PACKING MACHINE FEEDER-CUSTOMER SERVICE SECURITY OFFICER [address] [place] [address] Referral ID Status Reason Start Date Expiration Date Visits Re quested Visits Authorized [id number] Closed 03/19/2022 04/13/2023 1 1 Reason Comments New Patient Specialty Diagnoses / Procedures Referred By Contac t Referred To Contact Surgical Oncology Diagnoses New patient - Appendix NET - External: Dr. Timmy Hall - Preferred: Oanh Procedures NEW ISRRA[place] SURGERY Self, Self Archie Hugo MD, PhD [address] [place] [address] Referral ID Status Reason Start Date Expiration Date Visits Re quested Visits Authorized [id number] Closed 03/19/2022 04/13/2023 1 1 Reason Comments [...] malignant neuroendocrine tumor of appendix Raina Gomes DYNAMITE PACKING MACHINE FEEDER-CUSTOMER SERVICE SECURITY OFFICER 2049 [facility] [address] [place] [address] Andreas Ortega MD, MPH 2049 [facility] [address] [place] [address] Referral ID Status Reason Start Date Expiration Date V isits Requested Visits Authorized [id number] New Request 06/09/2022 07/04/2023 1 1 Specialty Diagnoses / Procedures Referred By Contac t Referred To Contact Diagnoses Primary malignant neuroendocrine tumor of appendix Procedures NUC PET NEUROENDOCRINE CHG NUC THERAPY HYPERTHYROID SUBSEQUENT Yudelka Moralez, DYNAMITE PACKING MACHINE FEEDER-CUSTOMER SERVICE SECURITY OFFICER [address] [place] [address] Referral ID Status Reason Start Date Expiration Date Visits Re quested Visits Authorized [id number] Closed 07/08/2022 08/02/2023 1 1 Specialty Diagnoses / Procedures Referred By Katharine t Referred To Contact Diagnoses Primary malignant neuroendocrine tumor of appendix Procedures CT ABDOMEN/PELVIS WITH AND WITHOUT CONTRAST CHG CT SCAN,ABDOMENT AND PELVIS,Andreas Ellis MD, MPH 2049 [facility] [place] [address] [place] [address] Referral ID Status Reason Start Date Expiration Date Visits Re quested Visits Authorized [id number] Closed 07/08/2022 08/02/2023 1 1 Reason Comments [...] of appendix Procedures CT NECK WITH CONTRAST CT CT NECK TISSUE CONTRAST Yudelka Moralez APRN-CNP [address] [place] [address] Referral ID Status Reason Start Date Expiration Date Visits Re quested Visits Authorized [id number] Closed 10/07/2022 11/01/2023 1 1 Specialty Diagnoses / Procedures Referred By Katharine t Referred To Contact Echocardiography Diagnoses Carcinoid syndrome SOB (shortness of breath) Tachycardia Procedures ECHOCARDIOGRAM CT ECHO HEART XTHORACIC,COMPLETE W DOPPLER Yudelka Moralez APRN-CNP [address] [place] [address] Echocardiography [place] [address] [place] [address] Referral ID Status Reason Start Date Expiration Date Visits Re quested Visits Authorized [id number] Closed 10/07/2022 11/01/2023 1 1 Specialty Diagnoses / Procedures Referred By Contac t Referred To Contact Diagnoses Carcinoid syndrome SOB (shortness of breath) Tachycardia Primary malignant neuroendocrine tumor of appendix Procedures CT CHEST WITH CONTRAST CHG DIAGNOSTIC COMPUTED TOMOGRAPHY THORAX W/CONTRAST Yudelka Moralez APRN-CUSTOMER SERVICE SECURITY OFFICER [address] [place] [address] Referral ID Status Reason Start Date Expiration Date Visits Re quested Visits Authorized [id number] Closed 10/07/2022 11/01/2023 1 1 Reason Comments New Patient Referred by Dorothy Moralez NP for JR. 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 Joint achy/flu symptoms, tachcardia, + HUNTER. 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 Procedures MRI ABDOMEN/PELVIS WITHOUT CONTRAST CT MRI, ABDOMEN (MRI) CT MRI, PELVIS, W/O CONTRAST Yudelka Moralez, DYNAMITE PACKING MACHINE FEEDER-CUSTOMER SERVICE SECURITY OFFICER [address] [place] [phone] Referral ID Status Reason Start Date Expiration Date Visits Re quested Visits Authorized [id number] Closed 03/09/2023 04/02/2024 1 1 Reason Comments Routine Visit Referral ID Status Reason Start Date Expiration Date Visits Re quested Visits Authorized [id number] Closed 04/06/2023 04/30/2024 1 1 Specialty Diagnoses / Procedures Referred By Contac t Referred To Contact Gastroenterology Diagnoses Hepatomegaly Transaminitis Yudelka Moralez, DYNAMITE PACKING MACHINE FEEDER-CUSTOMER SERVICE SECURITY OFFICER [address] [place] [address] Referral ID Status Reason Start Date Expiration Date V isits Requested Visits Authorized [id number] Pending Review 11/10/2023 12/04/2024 1 1 Reason Comments New Patient Specialty Diagnoses / Procedures Referred By Contac t Referred To Contact Oncology Diagnoses Low grade mucinous neoplasm of appendix Yudelka Moralez, DYNAMITE PACKING MACHINE FEEDER-[facility] [address] [place] [phone] Referral ID Status Reason Start Date Expiration Date Visits Re quested Visits Authorized [id number] Closed 11/10/2023 12/04/2024 1 1 Specialty Diagnoses / Procedures Referred By Contac t Referred To Contact Diagnoses 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 Procedures CT ABDOMEN/PELVIS WITH AND WITHOUT CONTRAST CHG CT SCAN,ABDOMENT AND PELVIS,COMBO Yudelka Moralez, DYNAMITE PACKING MACHINE FEEDER-[facility] [address] [place] [phone] Referral ID Status Reason Start Date Expiration Date Visits Re quested Visits Authorized [id number] Closed 11/10/2023 12/04/2024 1 1 Reason Onset Date Comments Advice Only 03/13/2024 Reason Onset Date Comments Change In Symptoms 04/11/2024 Specialty Diagnoses / Procedures Referred By Contac t Referred To Contact Diagnoses Primary malignant neuroendocrine tumor of appendix Procedures CT ABDOMEN/PELVIS WITH AND WITHOUT CONTRAST CHG CT ABDOMEN & PELVIS W/O CONTRST 1/> BODY RE Andreas Ortega MD, MPH 2049 [facility] [address] [place] [address] Referral ID Status Reason Start Date Expiration Date Visits Re quested Visits Authorized [id number] Closed 04/11/2024 2025 1 1 Specialty Diagnoses / Procedures Referred By Contac t Referred To Contact Diagnoses Primary malignant neuroendocrine tumor of appendix Procedures NUC PET NEUROENDOCRINE CHG PET IMAGING CT ATTENUATION SKULL BASE MID-THIGH Yudelka Moralez, DYNAMITE PACKING MACHINE FEEDER-CUSTOMER SERVICE SECURITY OFFICER [address] [place] [address] Referral ID Status Reason Start Date Expiration Date Visits Re quested Visits Authorized [id number] Closed 03/06/2024 03/31/2025 1 1 Reason Comments Well Women Visit Reason Comments Ulcerative Colitis Possible colitis, CT recommends colonoscopy Reason Onset Date Comments Appointment 09/28/2024 Reason Comments Pelvic congestion syndrome Reason Comments Med Change Request Reason Comments Pre-op Visit Reason Onset Date Comments Outside Medical Records Request 02/07/2025 Source Comments (unrecognize d section and content) In the event this informatio n is protected by the Federal Confidentiality of Alcohol and Drug Abuse Patient Records regulations: The Federal rules restrict any use of the information to criminally investigate or prosecute any alcohol or drug abuse patient.[facility] Care Teams (unrecognized sec tion and content) Director Quality Assurance Relationship Specialty Start Date End Date Erin Sams RN PCP - General 03/19/22 Rodney Olivas MD [address] [place] [address] Hematology 03/19/22 Director Quality Assurance Relationship Specialty Start Date End Date Erin Sams RN PCP - General 03/19/22 Rodney Olivas MD [address] [place] [address] Hematology 03/19/22 Director Quality Assurance Relationship Specialty Start Date End Date Erin Sams RN PCP - General 03/19/22 Rodney Olivas MD [address] [place] [address] Hematology 03/19/22 Director Quality Assurance Relationship Specialty Start Date End Date Erin Sams RN PCP - General 03/19/22 Rodney Olivas MD [address] [place] [address] Hematology 03/19/22 Director Quality Assurance Relationship Specialty Start Date End Date Erin Sams RN PCP - General 03/19/22 Rodney Olivas MD [address] [place] [address] Hematology 03/19/22 Archie Hugo MD, PhD [address] [place] [address] Surgeon Surgical Oncology 07/08/22 Director Quality Assurance Relationship Specialty Start Date End Date Erin Sams RN PCP - General 03/19/22 Rodney Olivas MD [address] [place] [address] Hematology 03/19/22 Archie Hugo MD, PhD [address] [place] [address] Surgeon Surgical Oncology 07/08/22 Director Quality Assurance Relationship Specialty Start Date End Date Erin Sams RN PCP - General 03/19/22 Rodney Olivas MD [address] [place] [address] Hematology 03/19/22 Archie Hugo MD, PhD [address] [place] [address] Surgeon Surgical Oncology 07/08/22 Director Quality Assurance Relationship Specialty Start Date End Date Erin Sams RN PCP - General 03/19/22 Rodney Olivas MD [address] [place] [address] Hematology 03/19/22 Archie Hugo MD, PhD [address] [place] [facility] [place] [address] Surgeon Surgical Oncology 07/08/22 Cheikh Coelho MD [address] [facility] [place] [place] [address] River Tester Cardiovascular Disease 10/07/22 Director Quality Assurance Relationship Specialty Start Date End Date Erin Sams RN PCP - General 03/19/22 Rodney Olivas MD [facility] [place] [address] Hematology 03/19/22 Archie Hugo MD, PhD [address] [place] [address] Surgeon Surgical Oncology 07/08/22 Cheikh Coelho MD [address] [place] [address], [place] [address] River Tester Cardiovascular Disease 10/07/22 Director Quality Assurance Relationship Specialty Start Date End Date Erin Sams RN PCP - General 03/19/22 Rodney Olivas MD [address] [place] [address] Hematology 03/19/22 Archie Hugo MD, PhD [address] [place] [address] Surgeon Surgical Oncology 07/08/22 Cheikh Coelho MD [address] [facility] [place] [address] River Tester Cardiovascular Disease 10/07/22 Director Quality Assurance Relationship Specialty Start Date End Date Erin Sams RN PCP - General 03/19/22 Rodney Olivas MD [facility] [place] [address] Hematology 03/19/22 Archie Hugo MD, PhD [address] [place] [address] Surgeon Surgical Oncology 07/08/22 Cheikh Coelho MD [address] [facility] [place] [address] River Tester Cardiovascular Disease 10/07/22 Director Quality Assurance Relationship Specialty Start Date End Date Erin Sams, RUPERT PCP - General 03/19/22 Rodney Olivas MD [facility] [place] [address] Hematology 03/19/22 Archie Hugo MD, PhD [address] [place] [address] Surgeon Surgical Oncology 07/08/22 Cheikh Coelho MD [address] [place] [phone] River Tester Cardiovascular Disease 10/07/22 Director Quality Assurance Relationship Specialty Start Date End Date Erin Sams CNP [address] [place] [phone] PCP - General 03/10/23 Rodney Olivas MD [facility] [place] [address] Hematology 03/19/22 Archie Hugo MD, PhD [address] [place] [address] Surgeon Surgical Oncology 07/08/22 Cheikh Coelho MD [address] [place] [address] River Tester Cardiovascular Disease 10/07/22 Director Quality Assurance Relationship Specialty Start Date End Date Erin Sams CNP [address] [place] [address] PCP - General 03/10/23 Rodney Olivas MD [address] [place] [address] Hematology 03/19/22 Archie Hugo MD, PhD [address] [place] [address] Surgeon Surgical Oncology 07/08/22 Cheikh Coelho MD [address] [place] [address] River Tester Cardiovascular Disease 10/07/22 Director Quality Assurance Relationship Specialty Start Date End Date Erin Sams CNP [address] [place] [address] PCP - General 03/10/23 Rodney Olivas MD [address] [place] [address] Hematology 03/19/22 Archie Hugo MD, PhD [address] [place] [address] Surgeon Surgical Oncology 07/08/22 Cheikh Coelho MD [address] [place] [address] River Tester Cardiovascular Disease 10/07/22 Andreas Ortega MD, MPH [address] [place] [address] [place] [address] Oncologist Medical Oncology 03/31/23 Ron Ruano DO [address] [facility] [address] [place] [address] Obstetrics & Gynecology 04/06/23 Director Quality Assurance Relationship Specialty Start Date End Date Erin Sams, CUSTOMER SERVICE SECURITY OFFICER [address] [facility] [facility] [place] [address] PCP - General 03/10/23 Rodney Olivas MD [address] [place] [address] Hematology 03/19/22 Archie Hugo MD, PhD [address] [place] [address] Surgeon Surgical Oncology 07/08/22 Cheikh Coelho MD [address] 5TH [place] [address] River Tester Cardiovascular Disease 10/07/22 Andreas Ortega MD, MPH [address] [place] 10th [place] [address] Oncologist Medical Oncology 03/31/23 Ron Ruano DO [address] [facility] 1 [place] [address] Obstetrics & Gynecology 04/06/23 Director Quality Assurance Relationship Specialty Start Date End Date Latrell, Erin S, CUSTOMER SERVICE SECURITY OFFICER [address] [place] [address] PCP - General 03/10/23 Rodney Olivas MD [address] [place] [address] Hematology 03/19/22 Archie Hugo MD, PhD [address]th [place] [address] Surgeon Surgical Oncology 07/08/22 Cheikh Coelho MD [address] 5TH [place] [address] River Tester Cardiovascular Disease 10/07/22 Andreas Ortega MD, MPH [address] [place] 10th [place] [address] Oncologist Medical Oncology 03/31/23 Ron Ruano DO [address] [facility] 1 [place] [address] Obstetrics & Gynecology 04/06/23 Director Quality Assurance Relationship Specialty Start Date End Date Erin Sams CNP [address] [place] [address] PCP - General 03/10/23 Rodney Olivas MD [address] [place] [address] Hematology 03/19/22 Archie Hugo MD, PhD [address] 8th [place] [address] Surgeon Surgical Oncology 07/08/22 Cheikh Coelho MD [address]TH [place] [address] River Tester Cardiovascular Disease 10/07/22 Andreas Ortega MD, MPH [address] [place] 10th [place] [address] Oncologist Medical Oncology 03/31/23 Ron Ruano DO [address] [facility] 1 [facility] [place] [address] Obstetrics & Gynecology 04/06/23 Director Quality Assurance Relationship Specialty Start Date End Date Erin Sams, CUSTOMER SERVICE SECURITY OFFICER [address] [facility] [place] [address] PCP - General 03/10/23 Rodney Olivas MD [facility] [place] [address] Hematology 03/19/22 Cheikh Coelho MD [address] 5TH [facility] [place] [address] River Tester Cardiovascular Disease 10/07/22 Andreas Ortega MD, MPH [address] [place] [address]th [place] [address] Oncologist Medical Oncology 03/31/23 Ron Ruano DO [address] [place] [address] Obstetrics & Gynecology 04/06/23 Dolores Johnson APRN-CUSTOMER SERVICE SECURITY OFFICER [address] [place] [address] Bid Manager Certified Nurse Practitioner 02/10/24 Vinicius Gomes MD, PhD [address] 8th [place] [address] Oncologist Medical Oncology 02/10/24 Diego Apodaca MD [address] [place] [address] Gastroenterology 02/16/24 Team Status: Active Member Role Status Dates Erin Sams NP-C Primary Care Provider Active Team Status: Inactive Member Role Status Dates Erin Sams NP-C Primary Care Pr ovider, Attending Provider, Referring Provider Active Start: April 03, 2024 End: April 03, 2024 Director Quality Assurance Relationship Specialty Start Date End Date Erin Sams CNP [address] [place] [address] PCP - General 03/10/23 Rodney Olivas MD Hematology 03/19/22 Cheikh Coelho MD [address] 5TH [place] [address] River Tester Cardiovascular Disease 10/07/22 Andreas Ortega MD, MPH [address] [place] 10th [place] [address] Oncologist Medical Oncology 03/31/23 Ron Ruano DO [address] [facility] 1 [place] [address] Obstetrics & Gynecology 04/06/23 JohnsonDolores, DYNAMITE PACKING MACHINE FEEDER-CUSTOMER SERVICE SECURITY OFFICER [address] [place] [address] Bid Manager Certified Nurse Practitioner 02/10/24 Vinicius Gomes MD, PhD [address] 8th [place] [address] Oncologist Medical Oncology 02/10/24 Diego Apodaca MD [address] [place] [address] [address] [place] [address] Gastroenterology 02/16/24 Director Quality Assurance Relationship Specialty Start Date End Date Erin Sams, CUSTOMER SERVICE SECURITY OFFICER [address] [facility] [place] [address] PCP - General 03/10/23 Rodney Olivas MD Hematology 03/19/22 Cheikh Coelho MD [address] 5TH [place] [address] River Tester Cardiovascular Disease 10/07/22 Andreas Ortega MD, MPH [address] 10th [place] [address] Oncologist Medical Oncology 03/31/23 Ron Ruano DO [address] [facility] 1 [place] [address] Obstetrics & Gynecology 04/06/23 JohnsonDolores APRN-CUSTOMER SERVICE SECURITY OFFICER [address] [place] [address] Bid Manager Certified Nurse Practitioner 02/10/24 Vinicius Gomes MD, PhD [address] 8th [place] [address] Oncologist Medical Oncology 02/10/24 Diego Apodaca MD [address] [place] [address] Gastroenterology 02/16/24 Director Quality Assurance Relationship Specialty Start Date End Date Erin Sams, CUSTOMER SERVICE SECURITY OFFICER [address] [facility] [place] [address] PCP - General 03/10/23 Rodney Olivas MD Hematology 03/19/22 Cheikh Coelho MD [address] 5TH [place] [address] River Tester Cardiovascular Disease 10/07/22 Andreas Ortega MD, MPH [address] [facility] 10th [place] [address] Oncologist Medical Oncology 03/31/23 Ron Ruano DO [address] [facility] 1 [place] [address] Obstetrics & Gynecology 04/06/23 Dolores Johnson APRN-CUSTOMER SERVICE SECURITY OFFICER [address] [place] [address] Bid Manager Certified Nurse Practitioner 02/10/24 Vinicius Gomes MD, PhD [address] [place] 8th [place] [address] Oncologist Medical Oncology 02/10/24 Diego Apodaca MD [address] [place] [phone] Gastroenterology 02/16/24 Director Quality Assurance Relationship Specialty Start Date End Date Erin Sams, CUSTOMER SERVICE SECURITY OFFICER [address] [facility] [place] [address] PCP - General 03/10/23 Rodney Olivas MD Hematology 03/19/22 Cheikh Coelho MD [address] 5TH [place] [address] River Tester Cardiovascular Disease 10/07/22 Andreas Ortega MD, MPH [address] [facility] 10th [place] [address] Oncologist Medical Oncology 03/31/23 Ron Ruano DO [address] [facility] 1 [place] [address] Obstetrics & Gynecology 04/06/23 Dolores Johnson APRN-TASH [address] [place] [address] Bid Manager Certified Nurse Practitioner 02/10/24 Vinicius Gomes MD, PhD [address] 8th [place] [address] Oncologist Medical Oncology 02/10/24 Diego Apodaca MD [address] [place] [address] Gastroenterology 02/16/24 Team Status: Inactive Member Role Status Dates Erin Sams , DIRECTOR OF RELIGIOUS ACTIVITIES-C Primary Care Provider Active Start: May 03, 2024 End: May 03, 2024 Timmy Hall DO Attending Provider Active Start: May 03, 2024 End: May 03, 2024 Director Quality Assurance Relationship Specialty Start Date End Date Erin Sams APRN-CUSTOMER SERVICE SECURITY OFFICER [address] [facility] [place] [address] PCP - General Family Medicine 02/11/22 Director Quality Assurance Relationship Specialty Start Date End Date Erin Sams APRN-CUSTOMER SERVICE SECURITY OFFICER [address] [facility], [place] [address] PCP - General Family Medicine 02/11/22 Director Quality Assurance Relationship Specialty Start Date End Date Erin Sams APRN-CUSTOMER SERVICE SECURITY OFFICER [address] [facility], [place] [address] PCP - General Family Medicine 02/11/22 Director Quality Assurance Relationship Specialty Start Date End Date Erin Sams APRN-CUSTOMER SERVICE SECURITY OFFICER [address] [facility] [place] [address] PCP - General Family Medicine 02/11/22 Director Quality Assurance Relationship Specialty Start Date End Date Erin Sams CNP [address] [facility] [place] [address] PCP - General 03/10/23 Rodney Olivas MD Hematology 03/19/22 Cheikh Coelho MD [address] 5TH [place] [address] River Tester Cardiovascular Disease 10/07/22 Andreas Ortega MD, MPH [address] 10th [place] [address] Oncologist Medical Oncology 03/31/23 Ron Ruano DO [address] [facility] 1 [place] [address] Obstetrics & Gynecology 04/06/23 Dolores Johnson APRN-CUSTOMER SERVICE SECURITY OFFICER [address] [place] [address] Bid Manager Certified Nurse Practitioner 02/10/24 Vinicius Gomes MD, PhD [address] 8th [place] [address] Oncologist Medical Oncology 02/10/24 Diego Apodaca MD [address] [place], [place] [address] [address] [address] Gastroenterology 02/16/24 Director Quality Assurance Relationship Specialty Start Date End Date Erin Sams CNP [address] [facility] [place] [address] PCP - General 03/10/23 Rodney Olivas MD Hematology 03/19/22 Cheikh Coelho MD [address] 5TH [place] [address] River Tester Cardiovascular Disease 10/07/22 Andreas Ortega MD, MPH [address] [facility] 10th [place] [address] Oncologist Medical Oncology 03/31/23 Ron Ruano DO [address] [facility] 1 [place] [address] Obstetrics & Gynecology 04/06/23 Dolores Johnson APRN-CUSTOMER SERVICE SECURITY OFFICER [address] [place] [address] Bid Manager Certified Nurse Practitioner 02/10/24 Vinicius Gomes MD, PhD [address] [facility] 8th [place] [address] Oncologist Medical Oncology 02/10/24 Diego Apodaca MD [address] [place] [address] Gastroenterology 02/16/24 Director Quality Assurance Relationship Specialty Start Date End Date Erin Sams CNP [address] [facility] [place] [address] PCP - General 03/10/23 Rodney Olivas MD Hematology 03/19/22 Cheikh Coelho MD [address] 5TH [place] [address] River Tester Cardiovascular Disease 10/07/22 Andreas Ortega MD, MPH [address] [facility] 10th [place] [address] Oncologist Medical Oncology 03/31/23 Ron Ruano DO [address] [facility] 1 [place] [address] Obstetrics & Gynecology 04/06/23 Dolores Johnson, DYNAMITE PACKING MACHINE FEEDER-CUSTOMER SERVICE SECURITY OFFICER [address] [place], [place] [phone] Bid Manager Certified Nurse Practitioner 02/10/24 Vinicius Gomes MD, PhD [address] [place] [address] Oncologist Medical Oncology 02/10/24 Diego Apodaca MD [address] [place] [address] [address] [place] [address] Gastroenterology 02/16/24 Team Status: Inactive Member Role Status Dates Erin Sams , DIRECTOR OF RELIGIOUS ACTIVITIES-C Primary Care Pr ovider, Attending Provider Active Start: November 02, 2024 End: November 02, 2024 Director Quality Assurance Relationship Specialty Start Date End Date Erin Sams CNP [address] [place] [address] PCP - General 03/10/23 Rodney Olivas MD Hematology 03/19/22 Cheikh Coelho MD [address] 5TH [place] [address] River Tester Cardiovascular Disease 10/07/22 Andreas Ortega MD, MPH [address] 10th [place] [address] Oncologist Medical Oncology 03/31/23 Ron Ruano DO [address] [facility] 1 [place] [address] Obstetrics & Gynecology 04/06/23 Dolores Johnson APRN-CUSTOMER SERVICE SECURITY OFFICER [address] [facility] 1 [facility] [place] [address] Bid Manager Certified Nurse Practitioner 02/10/24 Vinicius Gomes MD, PhD [address] [facility] 8th [place] [address] Oncologist Medical Oncology 02/10/24 Diego Apodaca MD [address] [place] [phone] Gastroenterology 02/16/24 Director Quality Assurance Relationship Specialty Start Date End Date Erin Sams CNP [address] [place] [address] PCP - General 03/10/23 Rodney Olivas MD Hematology 03/19/22 Cheikh Coelho MD [address] 5TH [place] [address] River Tester Cardiovascular Disease 10/07/22 Andreas Ortega MD, MPH [address] [place] 10th [place] [address] Oncologist Medical Oncology 03/31/23 Ron Ruano DO [address] [facility] 1 [place] [address] Obstetrics & Gynecology 04/06/23 Dolores Johnson DYNAMITE PACKING MACHINE FEEDER-CUSTOMER SERVICE SECURITY OFFICER [address] [facility] 1 [place] [address] Bid Manager Certified Nurse Practitioner 02/10/24 Vinicius Gomes MD, PhD [address] [place] 8th [place] [address] Oncologist Medical Oncology 02/10/24 Diego Apodaca MD [address] [place] [address] [address] [place] [address] Gastroenterology 02/16/24 Director Quality Assurance Relationship Specialty Start Date End Date Erin Sams, CUSTOMER SERVICE SECURITY OFFICER [address] [facility] [place] [address] PCP - General 03/10/23 Rodney Olivas MD Hematology 03/19/22 Cheikh Coelho MD [address] 5TH [place] [address] River Tester Cardiovascular Disease 10/07/22 Andreas Ortega MD, MPH [address] [place] 10th [place] [address] Oncologist Medical Oncology 03/31/23 Ron Ruano DO [address] [place] [phone] Obstetrics & Gynecology 04/06/23 Dolores Johnson APRN-CUSTOMER SERVICE SECURITY OFFICER [address] [address] Bid Manager Certified Nurse Practitioner 02/10/24 Vinicius Gomes MD, PhD [address] [place] 8th [place] [address] Oncologist Medical Oncology 02/10/24 Diego Apodaca MD [address] [place] [address] Gastroenterology 02/16/24 Director Quality Assurance Relationship Specialty Start Date End Date Erin Sams, CUSTOMER SERVICE SECURITY OFFICER [address] [place] [address] PCP - General 03/10/23 Rodney Olivas MD Hematology 03/19/22 Cheikh Coelho MD [address] 5TH [place] [address] River Tester Cardiovascular Disease 10/07/22 Andreas Ortega MD, MPH [address] [place] [address] [place] [address] Oncologist Medical Oncology 03/31/23 Ron Ruano DO [address] [facility] 1 [facility] [place] [address] Obstetrics & Gynecology 04/06/23 Dolores Johnson APRN-CUSTOMER SERVICE SECURITY OFFICER [address] [facility] 1 [facility] [place] [address] Bid Manager Certified Nurse Practitioner 02/10/24 Vinicius Gomes MD, PhD [address] [place] 8th [place] [address] Oncologist Medical Oncology 02/10/24 Diego Apodaca MD [address] [place] [address] Gastroenterology 02/16/24 Director Quality Assurance Relationship Specialty Start Date End Date Erin Sams, CUSTOMER SERVICE SECURITY OFFICER [address] [place] [address] PCP - General 03/10/23 Rodney Olivas MD Hematology 03/19/22 Cheikh Coelho MD [address] 5[place] [address] River Tester Cardiovascular Disease 10/07/22 Andreas Ortega MD, MPH [address] [place] 10th [place] [address] Oncologist Medical Oncology 03/31/23 Ron Ruano DO [address] [facility] 1 [place] [address] Obstetrics & Gynecology 04/06/23 Dolores Johnson, DYNAMITE PACKING MACHINE FEEDER-CUSTOMER SERVICE SECURITY OFFICER [address] [facility] 1 [place] [address] Bid Manager Certified Nurse Practitioner 02/10/24 Vinicius Gomes MD, PhD [address] [place] 8th [place] [address] Oncologist Medical Oncology 02/10/24 Diego Apodaca MD [address] [place] [phone] Gastroenterology 02/16/24 Director Quality Assurance Relationship Specialty Start Date End Date Erin Sams, CUSTOMER SERVICE SECURITY OFFICER [address] [facility] [place] [address] PCP - General 03/10/23 Rodney Olivas MD Hematology 03/19/22 Cheikh Coelho MD [address] 5TH [place] [address] River Tester Cardiovascular Disease 10/07/22 Andreas Ortega MD, MPH [address] [place] 10th [place] [address] Oncologist Medical Oncology 03/31/23 Ron Ruano DO [address] [facility] 1 [place] [address] Obstetrics & Gynecology 04/06/23 Dolores Johnson, DYNAMITE PACKING MACHINE FEEDER-CUSTOMER SERVICE SECURITY OFFICER [address] [facility] 1 [place] [address] Bid Manager Certified Nurse Practitioner 02/10/24 Vinicius Gomes MD, PhD [address] [place] 8th [place] [address] Oncologist Medical Oncology 02/10/24 Diego Apodaca MD [address] [place] [address] AVE [facility] [address] [place] [address] Gastroenterology 02/16/24 Director Quality Assurance Relationship Specialty Start Date End Date Erin Sams, CUSTOMER SERVICE SECURITY OFFICER [address] [facility] [place] [address] PCP - General 03/10/23 Rodney Olivas MD Hematology 03/19/22 Cheikh Coelho MD [address] 5TH [place] [address] River Tester Cardiovascular Disease 10/07/22 Andreas Ortega MD, MPH [address] [place] 10th [place] [address] Oncologist Medical Oncology 03/31/23 Ron Ruano DO [address] [facility] 1 [place] [address] Obstetrics & Gynecology 04/06/23 Dolores Johnson APRN-CUSTOMER SERVICE SECURITY OFFICER [address] [facility] 1 [place] [address] Bid Manager Certified Nurse Practitioner 02/10/24 Vinicius Gomes MD, PhD [address] [facility] 8th [place] [address] Oncologist Medical Oncology 02/10/24 Diego Apodaca MD [address] [place] [address] Gastroenterology 02/16/24 Director Quality Assurance Relationship Specialty Start Date End Date Erin Sams, CUSTOMER SERVICE SECURITY OFFICER [address] [place] [address] PCP - General 03/10/23 Rodney Olivas MD Hematology 03/19/22 Cheikh Coelho MD River Tester Cardiovascular Disease 10/07/22 Andreas Ortega MD, MPH [address] [facility] 10th [place] [address] Oncologist Medical Oncology 03/31/23 Ron Ruano DO [address] [place] [address] [place] [address] Obstetrics & Gynecology 04/06/23 Dolores Johnson APRN-CUSTOMER SERVICE SECURITY OFFICER [address] [facility] 1 [place] [address] Bid Manager Certified Nurse Practitioner 02/10/24 Vinicius Gomes MD, PhD [address] [place] 8th [place] [address] Oncologist Medical Oncology 02/10/24 Diego Apodaca MD [address] [place] [address] [place] [address] Gastroenterology 02/16/24 Scheduled Active and [...] prophylaxis 1418 (Given - Provider: Tania Louis, RN) 1400 (Canceled Entry - Provider: System [...] over at least two minutes., Indications: GERD 0905 (Given - Provider: Alena Wade RN) pantoprazole [...] Verify - Provider: Yadira Grier RN)0659 (Epidural [place] Volume/Shift Total - Provider: Yadira Grier RN - Comment: shift total: 175 ml remaining)1105 (Rate/Dose Verify - Provider: Alena Wade RN)1122 (Rate/Dose Verify - Provider: Alena Wade RN)1459 (Rate/Dose Verify - Provider: Alena Wade RN)1555 (Rate/Dose Verify - Provider: Alena Wade RN)1848 (Rate/Dose Verify - Provider: Alena Wade RN)1849 (Rate/Dose Verify - Provider: Alena Wade RN)1910 (Epidural [place] Volume/Shift Total - Provider: Alena Wade RN - Comment: 100mL left in cartridge) 0100 (Epidural [place] Volume/Shift Total - Provider: Craig Pagan RN [...] Alena Wade RN)1848 (Rate/Dose Verify - Provider: lAena Wade RN)1849 (Rate/Dose Verify - Provider: Alena [...] NEEDED, Starting on 05/23/22 at 1241, Until 05/29/22 at 1402, Sore Throat, Max 8 lozenges/day [...] Wade RN)1731 (Restarted - Provider: Alena Wade RN)1847 (Rate/Dose Verify - Provider: Alena Wade RN)1848 [...] Oral, EVERY 4 HOURS NEEDED, Starting on 05/28/22 at 1239, Until 05/29/22 at 1402, [...] BE BASED ON THE PRIMARY CLINICAL RECORDS. [facility]. provides no warranty or guarantee of the accuracy or completeness of information in this document.
== END 2025-03-21 14:58 | disposition home or self-care (01) ==
LOC: LAB 14:59
PROVIDERS: PCP Nurse Practitioner Family; Visit Provider Nurse Practitioner Family
DX: N39.0 Urinary tract infection, site not specified (principal)
CPT/HCPCS: 81001; 87086; 87088; 87186

== ENCOUNTER 2025-06-15 18:40 | Emergency (ER) | payer OTHER, SELFPAY ==
--- OUTSIDE RECORDS SUMMARY | 2025-03-21 06:30 | XMS_ITS ---
Author Organization [facility] [place] Address [address] [place] [address] Care Team Providers Care Fire Inspector Name Role Phone Erin Whiteside Primary Care Provider [phone] REASON FOR VISIT UTI Encounters Encounter Location Date Provider Diagnosis [facility] [address] [place] [address] 03/21/2025 Erin Whiteside Plan Of Treatment No Information Progress Notes * MICHELLE Zainab KDOB: [birth year] (30 yo F)Acc No.[id number]:03/21/2025 UNLOCKED PROGRESS NOTE Nurse Visit Patient: Pablito COLEmen Peggy :?Erin Whiteside ([facility]), CNPDOB:1995 ???Age:29 Y???Sex:FemaleDate:03/21/2025Phone:[phone]:[place], [id number] Subjective: * Chief Complaints: * 1 . UTI. * Medical History: Objective: * Vitals: Assessment: Plan: * Treatment: * * Electronic signature of Erin Whiteside NP, SAFE AND VAULT INSTALLER.POWER [email or web address] on 06/15/2025 at 07:26 PM ESTSign off status: PendingVisit Status:?CANCPHONE (Cancelled Phone) * Provider: Virgil RIOS), POWER OPERATOR Date: 0 03/21/2025 Generated for Printing/Faxing/eTransmitting on:?06/15/2025 07:26 PM EST
--- OUTSIDE RECORDS SUMMARY | 2025-05-21 10:30 | XMS_ITS ---
Author Organization [facility] in [place] Address [address] [place] [address] Care Team Providers Care Special Events Manager Name Role Phone Erin Whiteside Primary Care Provider REASON FOR VISIT radiating pain down armpit to back Encounters Encounter Location Date Provider Diagnosis [facility] [address] [place] [address] 05/21/2025 Erin Whiteside Plan Of Treatment No Information Progress Notes * Zainab MARTINEZ KDOB: [birth year] (30 yo F)Acc No.[id number]:05/21/2025 UNLOCKED PROGRESS NOTE Progress Note Patient: Zainab COLE :?Erin Whiteside (TTC), CNPDOB:1995 ???Age:30 Y???Sex:FemaleDate:05/21/2025Phone:[phone]:[place], [place] Subjective: * Chief Complaints: * 1 . Radiating pain down armpit to back. * Medical History: Objective: * Vitals: Assessment: Plan: * Treatment: * * Electronic signature of Erin Whiteside NP, FURNACE [email or web address] on 06/15/2025 at 07:26 PM ESTSign off status: PendingVisit Status:?N/S N/C (No Show/No Charge) * Provider: Virgil Whiteside (TTC), SHEEP FARMER Date: 07/21/2024 Generated for Printing/Faxing/eTransmitting on:?06/15/2025 07:26 PM EST
--- OUTSIDE RECORDS SUMMARY | 2025-06-11 10:45 | XMS_ITS ---
Author Organization The [facility] in [place] Address [address] [place] [address] Care Team Providers Care Brush Trimming Machine Setter Name Role Phone Stevo, Erin Primary Care Provider Allergies Allergen (clinical drug ingredient) Drug/Non Drug Allergy documented on EMR Reaction Allergy Type Onset Date Status metronidazole Flagyl nausea and vomiting Drug Allergy ActivegabapentinGabapentinnausea, diarrheaDrug AllergyActive REASON FOR VISIT pain on left side Medications Medication SIG (Take, Route, Frequency, Duration) Notes Start Date End Date Status Latuda 20 MG 1 tablet in the evening with nida d Orally Once a day ActiveDexcom G7 Dry Janitor -as /10/2025ActiveAlbuterol Sulfate HFA 108 (90 Base) MCG/ACT1 puff as needed Inhalation every 4 hrs4ActiveNurtec 75 MGOral; Duration: 10 DaysPRNActiveDexcom G7 Sensor -as directed; Duration: 28 days5ActivelamoTRIgine 100 MG1 tablet Orally daily; Duration: 90 days 5ActiveEmgality 120 MG/MLINJECT 120MG SUBCUTANEOUSLY ONCE EVERY 30 DAYS Subcutaneous; Duration: 30 DaysActive Social History Tobacco Use: Social History Observation Description Date Details (start date - stop date) Never Smoker NA - NA Tobacco Use/Smoking Question Answer Notes Patient is a nonsmoker AUDIT-C (Standard) Question Answer Notes Did you have a drink containing alcohol in the p ast year? No Abeorp0CendxsisvjgabfPwttqkne Vital Signs Weight 157 lbs 06/11/2025 Height 61 in 06/11/2025 Blood pressure systolic 120 mm Hg 06/11/20 25 Blood pressure diastolic 62 mm Hg 025 BMI 29.66 kg/m2 06/11/2025 Procedures Procedure Date Ordered Date Performed Result Body Sit e CARDIO Stress Test - Treadmill Exercise 06/11/20 25 N/A Encounters Encounter Location Date Provider Diagnosis [facility] [address] [facility] [place] [address] 06/11/2025 Erin Stevo Chest pain R07.9 and Left arm pain M79.602 Assessments Encounter Date Diagnosis (ICD Code) Assessment Notes Treatment Notes Treatment Clinical Notes Section Notes 06/11/2025 Chest pain (ICD-10 - R07.9) 06/11/2025Left arm pain (ICD-10 - M79.602) Plan Of Treatment Pending Test Test Name Order Date CARDIO Stress Test - Treadmill Exercise 06/11/2025 US SOFT TISSUE LIMITED AREA 06/11/2025 Next Appt Details Follow Up: prn, Reason: Progress Notes * Zainab MARTINEZ KDOB: [birth year] (30 yo F)Acc No.[id number]:06/11/2025 Progress Note Patient: Zainab COLE :?Erin Whiteside ([facility]), CNPDOB:1995 ???Age:30 Y???Sex:FemaleDate:06/11/2025Phone:[phone]:[address] [place], [id number] In:03:34 PM ESTCheck Out:04:00 PM EST Subjective: * Chief Complaints: * 1 . Pain on left side. * HPI: ???General:? deep ache in armpit, started about a month ago goes down side of her and than arm feels like getting worse, constant but can wax and wane 6 when gets sharp pain, dull ache is constant 3? nothing makes worse or better NSAIDS dont help skin clear? no injury or new exercise US and stress test. * ROS: ???General/Constitutional:?Fever?denies.?Headache?denies.?Weight loss denies.?Ophthalmologic:?Discharge?denies.?Eye Pain?denies.?Itching and redness?denies.?ENT:?Nasal discharge?denies.?Nasal congestion?denies. Sore throat?denies.?Cardiovascular:?Chest tightness/ heavy pressure?denies.?Rapid heart rate?denies.?Swelling of extremities?denies.?Chest pain?left chest , radiates from left axilla?.?Respiratory:?Productive cough?denies.?Chest pain?denies.?Cough?denies.?Shortness of breath?denies.?Wheezing?denies.?Gastrointestinal:?Abdominal pain?denies.?Constipation?denies.?Decreased appetite?denies.?Diarrhea?denies.?Nausea?denies.?Vomiting denies.?Genitourinary:?Urinary incontinence?denies.?Painful urination?denies.?Musculoskeletal:?Patient complaining of?left axilla pain radiates down leftarm.?Back pain?denies.?Neck pain?denies.?Muscle aches?denies.?Skin:?Rash?denies.?Skin lesion(s)?denies.? * Active Problem List E61.1 Iron deficiency Modified On:01/13/2023 Status:zweftdrkwV25.3Borderline personality disorder Modified On:01/13/2023 Status:syhnrlqqoM70.0Tachycardia Modified On:01/13/2023 Status:vumyzfairR65.606Leg pain Modified On:01/13/2023 Status:byhpqlpfmM66.8ANA positive Modified On:01/13/2023 Status:wabyjlfiiY35.1Hyperinsulinemia Modified On:06/28/2023W/U Status:driblvrqeM47.9Anxiety and depression Modified On:01/13/2023 Status:akgoturwkL47.610ASCUS of cervix with negative high risk HPV Modified On:01/13/2023 Status:frqezrkjkP3R.8Neuroendocrine carcinoma Modified On:01/13/2023 Status:sjccaoqewT98.0Breast lump in female Modified On:01/13/2023 Status:rrrrainmcT01.0Neoplasm of appendix Modified On:01/13/2023 Status:hgxfahygyN32.9Vitamin D deficiency, unspecified Modified On:12/10/2022 Status:tfchkvhimV18.20Calculus of gallbladder without cholecystitis without obstruction Modified On:02/22/2023 Status:uzsevsaalF08.0Fatty (change of) liver, not elsewhere classified Modified On:02/22/2023 Status:jgblahscjZ31.30Sciatica Modified On:10/08/2023 Status:wyneqhhdyO64.82Chronic fatigue syndrome with fibromyalgia Modified On:12/21/2024 Status:cxbdgtzzwY30.32Myalgic encephalomyelitis/chronic fatigue syndrome Modified On:12/21/2024 Status:nyiujvdkaF81.7Fibromyalgia Modified On:12/22/2024 Status:unbegcuixB90.50Polyarthralgia Modified On:12/22/2024 Status:ekbkhelxyT58.81Bipolar 2 disorder Modified On:04/27/2025 Status:dcztncczfH75.2Hypoglycemia Modified On:04/27/2025 Status:confirmed * Medical History: T achycardia, Breast lump in female, HUNTER positive, Iron deficiency, Leg pain, ASCUS of cervix with negative high risk HPV, C. difficile colitis, Neuroendocrine carcinoma, Neoplasm of appendix, Migraine headache, Hyperinsulinemia, Borderline personality disorder, Anxiety and depression. * Surgical History: Dr. Bria Duffy 02/03/22, Hemicolectomy, RT 2021, Partial Small intestine removal 2021, Lymph nodes resection from abd 2021, 08/2023. * Hospitalization/Major Diagno stic Procedure: s ee above , 08/2023. * Family History: F ather: alive, Asthma, diagnosed with Kidney Disease. M other: alive, Anxiety/depression, diagnosed with Diabetes, Anxiety, Hypertension. S ister(s): alive, diagnosed with Hypertension. Daughter(s): alive. M aternal aunt: diagnosed with Cancer. 4 sister(s) - healthy. 1 daughter(s) . . * Social History: ???Tobacco Use:?Tobacco Use/Smoking?Patient is a?nonsmoker ???Drug/Alcohol:?AUDIT-C (Standard)?Did you have a drink containing alcohol in the past year??No ?Points?0 ?Interpretation?Negative * Medications: T aking Albuterol Sulfate HFA 108 (90 Base) MCG/ACT Aerosol Solution 1 puff as needed Inhalation every 4 hrs , Taking Dexcom G7 Dry Janitor(Continuous Glucose Dry Janitor) - Device as directed , Taking Dexcom G7 Sensor(Continuous Glucose Sensor) - Miscellaneous as directed , Taking Emgality(Galcanezumab-gnlm) 120 MG/ML Solution Auto-injector INJECT 120MG SUBCUTANEOUSLY ONCE EVERY 30 DAYS Subcutaneous , Taking lamoTRIgine 100 MG Tablet 1 tablet Orally daily , Taking Latuda(Lurasidone HCl) 20 MG Tablet 1 tablet in the evening with food Orally Once a day , Taking Nurtec(Rimegepant Sulfate) 75 MG Tablet Disintegrating Oral , Notes to Pharmacist: PRN, Discontinued FLUoxetine HCl 40 MG Capsule 1 capsule Orally Once a day , Medication List reviewed and reconciled with the patient * Allergies: G abapentin: nausea, diarrhea, Flagyl: nausea and vomiting. Objective: * Vitals: W t:157lbs, Ht: 61 in, BP:120/62mm Hg, BMI:29.66Index, Ht-cm: 154.94 cm, Wt-k.21 kg. * Examination: ???General Examinations: ?GENERAL APPEARANCE:?alert and oriented,?in no acute distress.?EYES:?conjunctiva normal, sclera non-icteric.?NOSE:?normal external appearance.?LUNGS:?clear to auscultation bilaterally.?CARDIO:?regular rate and rhythm, S1, S2 normal.?ABDOMEN:?soft, nontender.?MUSCULOSKELETAL:?Gait and station normal, no lesions, redness, lumps noted to left axilla.?SKIN:?warm and dry, see msk.? Assessment: * Assessment: 1.?Left arm pain - M79.602 (Primary)???2.?Chest pain - R07.9?? Plan: * Treatment: ?Imaging: US SOFT TISSUE LIMITED AREA* left axilla area 2.?Chest pain?Procedure: CARDIO Stress Test - Treadmill Exercise * Preventive Medicine: ??Screenings/Counseling:?BMI ACTION PLAN?Above Normal BMI Follow-up?Dietary management education, guidance, and counseling * Follow Up: p rn * * Electronically signed by Erin Whiteside NP, INSURANCE LICENSING SUPERVISOR.LOC[employer] TENENS.[id number] on 06/13/2025 at 08:55 AM ESTSign off status: CompletedVisit Status:?CHK (Check Out) true * Provider: Virgil Whitesdie ([facility]), [employer] TENENS Date: 08/11/2024 Generated for Printing/Faxing/eTransmitting on:?06/15/2025 07:26 PM EST History and Physical Notes * HPI (History of Present Illness) CategorySub-CategoryDetailNotesCategory NotesGeneral deep ache in armpit, started about a month ago goes down side of her and than arm feels like getting worse, constant but can wax and wane 6 when gets sharp pain, dull ache is constant 3 nothing makes worse or better NSAIDS dont help skin clear no injury or new exercise US and stress test Examination CategorySub-CategoryDetailNotesCategory NotesGeneral ExaminationsGENERAL APPEARANCE:alert and oriented, in no acute distressEYES:conjunctiva normal, sclera non-ictericEARS:NOSE:normal external appearanceTHROAT:CARDIO:regular rate and rhythm, S1, S2 normalLUNGS:clear to auscultation bilaterallyABDOMEN:soft, nontenderSKIN:warm and dry, see mskBACK:MUSCULOSKELETAL:Gait and station normal, no lesions, redness, lumps noted to left axillaLYMPH NODES:
[2025-06-15 18:49] VITALS: BP 129/86; PULSE 84; TEMP 36.6; O2SAT 100; BMI 29.3
--- NOTE | 2025-06-15 19:16 | CT_ITS ---
The [place] [id number] Patient Name: KRYS MARTINEZ MRN: [id number] date: 1995 Sex: F Assigned Patient Location: ER Current Patient Location: .MAIN Accession/Order Number: [id number] Exam Date: 06/15/2025 19:48 Report Date: 06/15/2025 20:46 At the request of: SHOAIB HDEZ DO Procedure: CT abdomen pelvis w con CT ABDOMEN AND PELVIS WITH INTRAVENOUS CONTRAST: CLINICAL HISTORY: LLQ pain, r/o SBO, colitis, history of abd CA COMPARISON: 12/21/2023 TECHNIQUE: Spiral images were obtained through the abdomen and pelvis following the administration of intravenous contrast. This CT exam was performed using one or more following dose reduction techniques: Automated exposure control, adjustment of the mA and/or kV according to patient size, or use of iterative reconstruction technique. FINDINGS: Lung Bases: [Subpleural nodule left lower lobe 5 mm in size.] Organs:Liver, spleen, adrenals, kidneys, and pancreas are unremarkable.[Cholecystectomy. GI: The postsurgical changes involving the bowel loops status post right colectomy[no bowel obstruction. Mild sigmoid colonic diverticulosis. Pelvis:[Bladder unremarkable. Uterus unremarkable. Slight prominence endometrial canal noted may related to phase of menstrual cycle this measures up to 1.3 cm in thickness. No suspicious adnexal mass identified.] Peritoneum/Retroperitoneum:No free air or free fluid. Aorta normal caliber. No adenopathy.[ Abd wall/Bones:No suspicious osseous lesion. Spina bifida occulta identified involving the lower lumbar levels.[ CT/CT abdomen pelvis w con IMPRESSION: Negative acute inflammatory process or bowel obstruction. Impression dictated by: José Antonio Courtney M.D. 06/15/2025 8:46 PM Dictation Location: [place] [address] Electronically authenticated by: [id number] Y Date: 06/15/2025 20:46
--- OUTSIDE RECORDS SUMMARY | 2025-06-15 19:26 | XMS_ITS | Clinical Summary ---
Author Organization [facility] Address [facility] [id number] [address] [place] [address] Care Team Providers Care Slab Lifting Engineer Name Role Phone Erin Whiteside APRN-MATCH UP WORKER Primary Care Provider Allergies Active AllergyReactionsCriticalityNoted DateCommentsGabapentinDiarrhea,GI Fhggyoqguup29/22/2023MetronidazoleGI Oorroliygmz43/10/2024 Medications MedicationSigDispense QuantityRefillsLast FilledStart DateEnd DateStatus FLUoxetine (PROzac) 20 MG tablet Take 1 tablet (20 mg total) by mouth in the morning and 1 tablet (20 mg total) before bedtime.01/28/2022ctive ondansetron (ZOFRAN) 8 mg tablet Take 1 tablet (8 mg total) by mouth daily as needed for nausea or vomiting. 02/09/2023ctive colestipoL (COLESTID) 1 g tablet Take 1 tablet (1 g total) by mouth every other day. TAKE 2 TABLETS BY MOUTH TWICE A DAY WITH A FULLGLASS OF WATER, per patient every other day02/17/2024 Active lamoTRIgine (LaMICtal) 25 mg tablet Take 1 tablet (25 mg total) by mouth in the morning.Active octreotide,microspheres (SandoSTATIN LAR Depot) 20 mg injection Inject 20 mg into the appropriate muscle Once every four weeks.10/18/2023ctive Active Problems ProblemNoted DateDiagnosed DateArrhythmia of fetus affecting management of bepjbskvs76/20/2023Supervision of other high risk pregnancies, second trimester 07/07/2023Low grade mucinous neoplasm of /04/2022Neuroendocrine neoplasm of clmyrrfm01/04/2022 Family History Medical HistoryRelationNameCommentsAsthmaFatherKhrisKidney diseaseFatherKhris Breast cancerMaternal AuntLoriaDiabetesMotherMary JoHypertensionMotherMary Marge RelationNameStatusCommentsFatherKhrisAliveMaternal AuntLoriaAliveMotherMary Marge Alive Social History Tobacco UseTypesPacks/DayYears UsedDateSmoking Tobacco: NeverSmokeless Tobacco: Never Tobacco Cessation:Counseling Given: Not Answered Alcohol UseStandard Drinks/WeekCommentsNot Currently0 (1 standard drink = 0.6 oz pure alcohol)Social Connection and Isolation PanelAnswerDate RecordedIn a typical week, how many times do you talk on the phone with family, friends, or neighbors?Twice a week02/18/2022How often do you get together with friends or relatives?Patient hjdjebgw78/03/2022How often do you attend episcopal or jew services?Never02/18/2022o you belong to any clubs or organizations such as episcopal groups, unions, fraternal or athletic groups, or school groups?No 02/18/2022How often do you attend meetings of the clubs or organizations you belong to?Patient serqsjxj64/03/2022re you , , , , never , or living with a partner?Thfbqba4102/18/2022UDIT-C AnswerDate RecordedQ1: How often do you have a drink containing alcohol?Never 02/18/2022Q2: How many drinks containing alcohol do you have on a typical day when you are drinking?Patient does not drink02/18/2022Q3: How often do you have six or more drinks on one occasion?Never02/18/2022verall Financial Resource Strain (CARDIA)AnswerDate RecordedHow hard is it for you to pay for the very basics like food, housing, medical care, and heating?Somewhat hard02/18/2022 PHQ-2AnswerDate RecordedTotal Cregn4756/03/2022[facility] [place] [facility] - Occupational Stress QuestionnaireAnswerDate RecordedDo you feel stress - tense, restless, nervous, or anxious, or unable to sleep at night because your mind is troubled all the time - these days?Very much08/03/2022Exercise Vital SignAnswerDate RecordedOn average, how many days per week do you engage in moderate to strenuous exercise (like a brisk walk)?3 days02/18/2022n average, how many minutes do you engage in exercise at this level?40 min02/18/2022RAPARE - TransportationAnswerDate RecordedIn the past 12 months, has lack of transportation kept you from medical appointments or from getting medications?No 02/18/2022In the past 12 months, has lack of transportation kept you from meetings, work, or from getting things needed for daily living?No02/18/2022 ChildcareAnswerDate RecordedDo problems getting child care sitter make it difficult for you to work or study?No02/18/2022EmploymentAnswerDate RecordedDo you need help finding a local career center and/or a training program?No02/18/2022Hunger ScreeningAnswerDate RecordedWithin the past 12 months we worried whether our food would run out before we got money to buy more.Never True04/13/2024Food Insecurity - InabilityNot on file04/13/2024urpose - LifeAnswerDate RecordedI have a purpose and direction in my life.Somewhat Ssfzktuy30/03/2022Education AnswerDate RecordedWhat is the highest level of school you have completed or the highest degree you have received?Some college, no yjipzv4902/18/2022 CommentsNoSex and Gender InformationValueDate RecordedSex Assigned at BirthNot on fileLegal KaaDppukc94/20/2022 8:33 AM EDTGender IdentityNot on fileSexual OrientationNot on file Last Filed Vital Signs Vital SignReadingTime TakenCommentsBlood Xtctfksl248/6009 10:24 AM EDT Rwvml333604/13/2024 10:24 AM VVPPcqwzogqtnk03 ??C (96.8 ??F)06/18/2023 10:08 AM ESTRespiratory Mazn1497 11:23 AM ESTOxygen Iiysqjkfxj06%06/18/2023 11:23 AM ESTInhaled Oxygen Concentration--Trdhlz24.2 kg (157 lb)04/13/2024 10:24 AM OZIAocfjv999.9 cm (5' 1 )04/13/2024 10:24 AM EDTBody Mass Index29.66004/13/2024 10:24 AM EDT Plan of Treatment Health MaintenanceDue DateLast DoneCommentsDepression Ffvabhvxq27/19/2009Pap Smear2018DTaP,Tdap and Td Vaccines (6 - Td or Tdap)/, 04/03/2002, 09/20/2000, Additional history existsCOVID-19 Vaccine ( season)/08/2020, 08/28/2020, 07/31/2020Influenza Rzdfiuw4803/19/2025 04/28/2021dult BMI Xtfmiukzk70/26/95777604/13/2024Tobacco Jnruyspbe10/27/2025 04/14/2024 Medical Devices Not on file Insurance [address] [place] [address] Care Teams Team MemberRelationshipSpecialtyStart DateEnd Date Erin Whiteside, PROBATE PARALEGAL-MATCH UP WORKER [address] [facility] [place] [address] PCP - GeneralFamily Medicine02/11/22
--- OUTSIDE RECORDS SUMMARY | 2025-06-15 19:26 | XMS_ITS ---
Author Organization [facility] Address [address] [place] [address] [place] [address] Care Team Providers Care Visual Merchandiser Name Role Phone Rodney Olivas MD Unavailable Cheikh Coelho MD Unavailable Unavailable Erin Whiteside LAND MOBILE RADIO TECHNICIAN Primary Care Provider + Lavern Paul MD, MPH Unavailable [phone] Ron Ruano DO Unavailable [phone] Dolores Johnson APRN-LAND MOBILE RADIO TECHNICIAN Unavailable [phone] Vinicius Gomes MD, PhD Unavailable [phone] Diego Apodaca MD Unavailable [phone] Active Problems ProblemNoted DateDiagnosed DateObesity (BMI 30.0-34.9)3Carcinoid vzneowte44/16/2023Primary malignant neuroendocrine tumor of mykkigce58/04/2022 Cancer Staging: Pathologic stage from 05/22/2022:Stage IVC(TX, N1, M1b) - Unsigned Current Treatment and Therapy Plans No current plan information found. Past Treatment and Therapy Plans Plan NameStart DateDiscontinue DateTreatment MedicationsDiscontinue ReasonPlan ProviderCyclesOP OCTREOTIDE LAR [id number] medications scheduled.Other - see commentLavern Paul MD, MPHTreatment not started Lifetime Dose Tracking * ChemicalLifetime DoseAutomatic EntryManual KqqkyXhqwfpqkb39.847 mg/m2 (90 mg) 50.847 mg/m2 (90 mg)0 mg/m2 (0 mg)
--- OUTSIDE RECORDS SUMMARY | 2025-06-15 19:26 | XMS_ITS | Clinical Summary ---
Author Organization [facility] Address [address] [place] [address] Care Team Providers Care Assembler Musical Instruments Name Role Phone Unavailable Primary Care Provider Unavailabl e Allergies Active AllergyReactionsCriticalityNoted DateCommentsGabapentinDiarrhea,Nausea Only10/07/2022 Other Reaction(s): nausea, diarrhea MetronidazoleGI intolerance,Nausea Only11/26/2023 Other Reaction(s): GI Disturbance Medications MedicationSigDispense QuantityRefillsLast FilledStart DateEnd DateStatus Acetaminophen (TYLENOL EXTRA STRENGTH PO) Take 500 mg by mouth in the morning.Active FLUoxetine (PROzac) 20 MG capsule Indications:Depression with anxietyTake 1 capsule (20 mg) by mouth in the morning. 30 capsule 1104Active lamoTRIgine (LaMICtal) 25 MG tablet Indications:Depression with anxietyTake 1 tablet (25 mg) by mouth Daily 90 tablet 4Active Emgality 120 MG/ML auto-injector Inject 120 mg under the skin every 30 (thirty) days5Active octreotide (SandoSTATIN) 100 MCG/ML injection Infuse 100 mcg into a venous catheter in the morning and 100 mcg in the evening and 100 mcg before bedtime.Active hydrOXYzine pamoate (Vistaril) 50 MG capsule Take 50 mg by mouth 3 (three) times a day as neededActive Encounters DateTypeDepartmentCare YeyjCmpigiqvjpy26/17/2025 8:00 AM EDTAncillary Procedure [facility] [address] [place] [address] [place] [address] Cyst of ovary, unspecified laterality; Uterine leiomyoma, unspecified /10/2025Travelfrom Last 3 Months Family History Medical HistoryRelationNameCommentsBreast cancerMother's SisterRelationName StatusCommentsMother's Sister Social History Tobacco UseTypesPacks/DayYears UsedDateSmoking Tobacco: Never Assessed CommentsUnknownSex and Gender InformationValueDate RecordedSex Assigned at Vwmcaa9701/25/2023 9:28 AM EDTLegal XniKumnst10/15/2023 11:48 PM EDTGender AbkkxpnkQjvbae33/10/2023 9:28 AM EDTSexual WuvprmhnjjwCnrqgdqj86/10/2023 9:28 AM EDT Last Filed Vital Signs Vital SignReadingTime TakenCommentsBlood Trjxperd884/78002/01/2025 10:51 AM EDT Pulse--Temperature--Respiratory Rate--Oxygen Saturation--Inhaled Oxygen Concentration--Qimpgn24.7 kg (151 lb 8 oz)02/01/2025 10:51 AM WVNVrcfce975 cm (5' 3 )03/30/2023 2:54 PM EDTBody Mass Index26.8403/30/2023 2:54 PM EDT Plan of Treatment Health MaintenanceDue DateLast DoneCommentsCOVID-19 Vaccine ( season) , 08/28/2020, 07/31/2020Influenza Vaccine (#1)2025 04/28/2021neumococcal Vaccine: Pediatrics (0 to 5 Years) and At-Risk Patients (6 to 64 Years)Aged OutNo longer eligible based on patient's age to complete this topic Goals GoalPatient Goal TypeAssociated ProblemsRecent ProgressPatient-Stated?Author Reminders Care PlanOB RemindersNoOpen Scheduling, Background Procedures Procedure NamePriorityDate/TimeAssociated DiagnosisCommentsUS PELVIS MBVEMQTFDSOGBcjpoja21/17/2025 8:36 AM EDT Cyst of ovary, unspecified laterality Uterine leiomyoma, unspecified location from Last 3 Months Results * US pelvis transvaginal (04/04/2025 8:36 AM EDT)Anatomical RegionLaterality ModalityPelvisUltrasoundSpecimen (Source)Anatomical Location / Laterality Collection Method / VolumeCollection TimeReceived Time04/04/2025 3:30 PM EDT Impressions 04/05/2025 7:52 AM EDT 1. No intrauterine mass 2. Normal follicular ovaries TRANSCRIBED BY: ? ELECTRONICALLY SIGNED BY: Wali Hathaway MD Narrative 04/05/2025 7:52 AM EDT FINDINGS: Uterus ? 8.3 x 5.4 x 6.5 cm Endometrium ?12 mm Right ovary ?3.4 x 2.3 x 2.7 cm Left ovary ?2.1 x 1.7 x 2.1 cm Normal uterine orientation and morphology. Normal endometrium, no cystic changes. No myometrial mass. No pelvic fluid. No adnexal mass or shadowing. Several millimeter peripheral ovarian follicles. Procedure Note Wali Hathaway MD - 04/05/2025 FINDINGS: Uterus 8.3 x 5.4 x 6.5 cm Endometrium 12 mm Right ovary 3.4 x 2.3 x 2.7 cm Left ovary 2.1 x 1.7 x 2.1 cm Normal uterine orientation and morphology. Normal endometrium, no cysticchanges. No myometrial mass. No pelvic fluid. No adnexal mass or shadowing. Several millimeter peripheral ovarianfollicles. IMPRESSION: 1. No intrauterine mass 2. Normal follicular ovaries TRANSCRIBED BY: ELECTRONICALLY SIGNED BY: Wali Hathaway MD Authorizing ProviderResult TypeResult StatusCorey Alden [facility] PROCEDURESFinal Result from Last 3 Months Additional Health Concerns Active ProblemsNoted DateDiagnosed DateOB Hyvrwotyw54/28/2023 Insurance [facility] [place] [facility] [place] Address: [address] [address]
--- OUTSIDE RECORDS SUMMARY | 2025-06-15 19:26 | XMS_ITS | Clinical Summary ---
Author Organization [facility] [place] [address] Care Team Providers Care Vocational Trainer Name Role Phone Doc, Misc OPENING MACHINE CLEANER-PROJECT MANAGEMENT CONSULTANT Primary Care Provider Unavail able Immunizations ImmunizationAdministration DatesNext DuePFIZER (purple cap) COVID-19, mRNA, LNP- S, 30mcg/0.3mL dose06/19/2021 Social History Tobacco UseTypesPacks/DayYears UsedDateSmoking Tobacco: Never Assessed CommentsUnknownSex and Gender InformationValueDate RecordedSex Assigned at Not on fileLegal UerIavhqi47/28/2021 12:29 PM EDTGender IdentityNot on file Sexual OrientationNot on file Plan of Treatment Health MaintenanceDue DateLast DoneCommentsMMR (1 of 1 - Standard series) 1998Tetanus Diphtheria and Pertussis Vaccines (1 - Tdap)2004 Varicella (1 of 2 - 13+ 2-dose series)2010MenB (1 of 2 - MenB 2-Dose Series Bexsero)2013Hepatitis B (1 of 3 - 19+ 3-dose series)2016HPV (1 - 3-dose SCDM series)4COVID-19 ( - season)2025 06/19/2021FLU (#1)03/19/2025HIBAged OutNo longer eligible based on patient's age to complete this topicHepatitis AAged OutNo longer eligible based on patient's age to complete this topicMenACWYAged OutNo longer eligible based on patient's age to complete this topicNirsevimabAged OutNo longer eligible based on patient's age to complete this topicPneumococcalAged OutNo longer eligible based on patient's age to complete this topicPolioAged OutNo longer eligible based on patient's age to complete this topicRotavirusAged OutNo longer eligible based on patient's age to complete this topic Care Teams Team MemberRelationshipSpecialtyStart DateEnd Date Doc, Misc, OPENING MACHINE CLEANER-PROJECT MANAGEMENT CONSULTANT [place] [address] PCP - MruclxhUepkxmznxx29/2/21
--- OUTSIDE RECORDS SUMMARY | 2025-06-15 19:26 | XMS_ITS | Clinical Summary ---
Author Organization [facility] Address [address] [place], [place] [address] Care Team Providers Care Personnel And Payroll Technician Name Role Phone Connor Giraldo MD Unavailable [phone] Social History Tobacco UseTypesPacks/DayYears UsedDateSmoking Tobacco: Never Assessed CommentsUnknownSex and Gender InformationValueDate RecordedSex Assigned at Not on fileLegal UhiWvjqml60/04/2022 3:47 PM EDTGender IdentityNot on fileSexual OrientationNot on file Plan of Treatment Health MaintenanceDue DateLast DoneCommentsAnxiety Twxcvltez71/19/2015Depression Vlxdcqmts79/19/2015HIV Rhmrjlbib51/19/2015Hepatitis C Fogstqmge40/19/2015 DTaP,Tdap,Td Vaccine (1 - Tdap)2016Hepatitis B Vaccine (1 of 3 - 19+ 3- dose series)2016Cervical Cancer Vzqyosglh29/19/2018HPV Vaccine (1 - 3-dose SCDM series)4Covid-19 Vaccine (2 - 2024- season)/08/2020 Influenza Vaccine (#1)2025 Insurance * Guarantor: Zainab SwiftAccount TypeRelation to PatientDate of BirthPhone Billing QoprweiJyposlmjpxIqck1995 [address] [place] [address] Care Teams Team MemberRelationshipSpecialtyStart DateEnd Connor Giraldo MD [address] [place] [address] [facility]08/29/24
--- OUTSIDE RECORDS SUMMARY | 2025-06-15 19:26 | XMS_ITS | Encounter Summary ---
Author Organization [facility] enter Address [address] [place] [address] Care Team Providers Care Film Historian Name Role Phone Rodney Olivas MD Unavailable Cheikh Coelho MD Unavailable Unavailable Erin Whiteside PORTFOLIO MGR Primary Care Provider + Lavern Paul MD, MPH Unavailable [phone] Ron Ruano DO Unavailable [phone] Dolores Johnson APRN-PORTFOLIO MGR Unavailable [phone] Vinicius Gomes MD, PhD Unavailable [phone] Diego Apodaca MD Unavailable [phone] Reason for Visit * ReasonOnset GeuuJaoyttwuGtexxcdbtla18/20/2025 Encounter Details DateTypeDepartmentCare Team (Latest Contact Info)Uyhjyuinsbu30/20/2025Telephone Neurology [facility] [address] [address] Zeynep Murdock MA Appointment Social History Tobacco UseTypesPacks/DayYears UsedDateSmoking Tobacco: NeverSmokeless Tobacco: NeverAlcohol UseStandard Drinks/WeekCommentsNever0 (1 standard drink = 0.6 oz pure alcohol)last alchohol 2019; mixed drink rarelyDepressionAnswerDate Recorded PHQ-9 Total Score (Interpretation of Total Score 1-4 = Minimal depression; 5-9 = Mild depression; 10-14 = Moderate depression; 15-19 = Moderately severe depression)CommentsNoSex and Gender InformationValueDate RecordedSex Assigned at BirthNot on fileLegal XteUawuwo28/15/2022 8:46 AM EDT Gender MxnlyblcGlocbv51/24/2025 9:47 AM ESTSexual TnnkhvopxuqUjvglqku66/24/2025 9:47 AM ESTdocumented as of this encounter Functional Status * Are you deaf or do you have serious difficulty hearing?AnswerDate of CvxigasckiVrspnoDe28/04/2022 3:44 PM Yvrose Herrera RN * Are you blind or do you have serious difficulty seeing, even when wearing glasses?AnswerDate of CdinzoczvvHwbeyhNt59/04/2022 3:44 PM Yvrose Herrera RN * Do you have serious difficulty walking or climbing stairs (5 years or older)? AnswerDate of GigfsycebpGpctbcCm24/04/2022 3:44 PM Yvrose Herrera RN * Do you have difficulty dressing or bathing (5 yrs or older)?AnswerDate of LdycrwyolkTckibdJo54/04/2022 3:44 PM Yvrose Herrera RN * Because of a physical, mental, or emotional condition, do you have difficulty doing errands alone such as visiting a doctor's office or shopping (5 yrs or older)?AnswerDate of OyjstvgpzyGcnsbmGs36/04/2022 3:44 PM Yvrose Herrera RN documented as of this encounter Mental Status * Because of a physical, mental, or emotional condition, do you have serious difficulty concentrating, remembering, or making decisions (5 yrs or older)? AnswerEntry OclmYojdseOb24/04/2022 3:44 PM Yvrose Herrera RN documented in this encounter Miscellaneous Notes * Telephone Encounter - Zeynep Murdock MA - 06/07/2025 8:46 AM EST What is your name and relationship to the patient: (ie spouse, nurse, provider, etc...) patient Preferred call back number: [phone] What is your neurological diagnosis? Chronic migraine without aura without status migrainosus, not intractable Why are you calling today? Pt called requesting to make upcoming appt on 07/06 a telehealth. Please advise. Do you have new symptoms? If yes, please describe the symptoms. When did they start? How have they changed over time? How quickly have they changed over time? Are you experiencing worsening of chronic symptoms? If yes, please describe the symptoms. Date of last office visit: 11/09/24 Date next appt scheduled: 07/06/25 Thank you KE ???Thank you for calling [facility] Department of Neurology. You will receive a return call (or Bootstrap Softwarehart message, if you have Bootstrap Softwarehart) within 72 hours (or 3 business days if close to the weekend). If you feel that this is an urgent issue and needs immediate attention, it is recommended that you contact your primary care provider office or proceed to your nearest Urgent Care Center or Emergency Room for evaluation/treatment.?? documented in this encounter Plan of Treatment DateTypeDepartmentCare Team (Latest Contact Info)Cqdquraiojg31/19/2025 9:15 AM ESTTelemedicine Neurology Outpatient Care [address] [place] [phone] Roge Yanes MD [address] [place] [address] 08/01/2025 11:45 AM ESTClinical Support Encounter Clinical Lab [facility] [place] [address] [place] [address] [place] [phone] Lavern Paul MD, MPH [address] [place] [address] [place] [phone] 08/01/2025 1:00 PM ESTAppointment Imaging at [facility] [address] [place] [phone] Lavern Paul MD, MPH [address] [place] [address] [place] [phone] 08/07/2025 12:00 PM ESTOffice Visit Division of Medical Oncology [address] [place] [address] [place] [phone] Lavern Paul MD, MPH [address] [place] [address] [place] [address] documented as of this encounter Visit Diagnoses Not on filedocumented in this encounter Additional Health Concerns AssessmentNoted TimePHQ-9 Depression Total Score: 2:28 PM EDT documented as of this encounter Care Teams Team MemberRelationshipSpecialtyStart DateEnd Date Erin Whiteside, PORTFOLIO MGR [address] [place] [phone] PCP - General03/10/23 Rodney Olivas MD Hematology03/19/22 Cheikh Coelho MD CardiologistCardiovascular Disease10/07/22 Lavern Paul MD, MPH [address] [place] [address] OncologistMedical Oncology03/31/23 Ron Ruano DO [address] [place] [address] Obstetrics & Gynecology04/06/23 Dolores Johnson, CLOTHING EXAMINER-PORTFOLIO MGR [address] [place] [address] GastroenterologistCertified Nurse Practitioner02/10/24 Vinicius Gomes MD, PhD [address] [place] [address] OncologistMedical Oncology02/10/24 Diego Apodaca MD [address] [address] Gastroenterology02/16/24documented as of this encounter
--- OUTSIDE RECORDS SUMMARY | 2025-06-15 19:26 | XMS_ITS | Clinical Summary ---
Author Organization [facility] Address [address] [place] [address] [place] [address] Care Team Providers Care Bag Machine Tender Name Role Phone Rodney Olivas MD Unavailable Cheikh Coelho MD Unavailable Unavailable Erin Whiteside AQUARIUM TANK ATTENDANT Primary Care Provider + Lavern Paul MD, MPH Unavailable [phone] Ron Ruano DO Unavailable [phone] Dolores Johnson APRN-AQUARIUM TANK ATTENDANT Unavailable [phone] Vinicius Gomes MD, PhD Unavailable [phone] Diego Apodaca MD Unavailable [phone] Allergies Active AllergyReactionsCriticalityNoted QokeWcxkmiruYknbpkgailfnb19/10/2024 GabapentinNausea Only10/07/2022 Medications MedicationSigDispense QuantityRefillsLast FilledStart DateEnd DateStatus lamoTRIgine 100 MG tablet Take 0.5 tablets by mouth daily.Active FLUoxetine 20 MG capsule Take 2 capsules by mouth daily.Active Loperamide 2 MG capsule Take 1 capsule by mouth as needed for Diarrhea. 2 stat then 1 cap after each loose stoolActive Probiotic Product (PROBIOTIC PO) Take by mouth. + PrebioticActive Octreotide Acetate 100 MCG/ML Solution Prefilled Syringe prefilled syringe Inject 1 mL under the skin 3 times daily as needed for Other (carcinoid syndrome). 90 mL 03/17/2024ctive Multiple Vitamins-Minerals (Multivitamin w/ minerals, THERAPEUTIC-M,) tablet Take 1 tablet by mouth daily.Active Ibuprofen 400 MG tablet Take 1 tablet by mouth every 6 hours as needed for Mild Pain.Active Acetaminophen 325 MG tablet Take 2 tablets by mouth every 4 hours.Active Ondansetron 4 MG tablet Take 1 tablet by mouth every 8 hours as needed for Nausea / Vomiting. 60 tablet 5Active Galcanezumab-gnlm 120 MG/ML Solution Auto-injector Indications:Chronic migraine without aura without status migrainosus, not intractableInject 240 mg under the skin once for 1 dose. 2 mL 5Active Galcanezumab-gnlm (Emgality) 120 MG/ML Solution Auto-injector Indications:Chronic migraine without aura without status migrainosus, not intractableInject 120 mg under the skin every 30 days. Use 1ml 30days after the initial loading dose of 2ml. Afterwards, continue to use it every 30 days. 1 mL 5Active Rimegepant (Nurtec) 75 MG Tab Dispersible Take 1 tablet by mouth daily as needed for up to 96 doses. Use one tablet at the onset of severe migraine. Don't exceed one tablet within 24 hours. 8 tablet 5Active hydrOXYzine pamoate 50 MG capsule Take 1 capsule by mouth 3 times daily as needed for Anxiety.Active Lanreotide 60 MG/0.2ML Solution Inject 1 Syringe under the skin every 28 days. 0.2 mL 5Active Active Problems ProblemNoted DateDiagnosed DateObesity (BMI 30.0-34.9)3Carcinoid efwpqmbu18/16/2023Primary malignant neuroendocrine tumor of ufmxaoao58/04/2022 Cancer Staging: Pathologic stage from 05/22/2022:Stage IVC(TX, N1, M1b) - Unsigned Encounters DateTypeDepartmentCare UgzkRmzydslubsj31/24/2025Telephone Division of Medical Oncology [address] [place] [address] [place] [address] Lavern Paul MD, MPH FMLA/Wgxwpsjbqf61/20/2025Telephone Neurology [facility] Outpatient Care [address] [address] Zeynep Murdock MA Appointmentfrom Last 3 Months Family History Medical HistoryRelationNameCommentsCancerCousinMaternal 3rd cousinNeuroendocrine cancerCancerMaternal Aunt 1THYROIDBreast CancerMaternal Aunt 2LoriaInvasive ductal carcinoma stage 4Lung CancerMaternal GrandfatherMyocardial Infarction Maternal GrandmotherLeukemiaOther 1Maternal great AuntLeukemiaOther 2Maternal great AuntBreast CancerOther 3Maternal great auntCancerOther 4Maternal great AuntUterineRelationNameStatusCommentsCousinMaternal 3rd cousinDeceasedFather AliveMaternal Aunt 1AliveMaternal Aunt 2LoriaMaternal GrandfatherDeceased Maternal GrandmotherDeceasedMotherAliveOther 1Maternal great AuntDeceasedOther 2 Maternal great AuntAliveOther 3Maternal great auntAliveOther 4Maternal great AuntAlivePaternal GrandfatherDeceasedPaternal GrandmotherDeceased Social History Tobacco UseTypesPacks/DayYears UsedDateSmoking Tobacco: NeverSmokeless Tobacco: Never Tobacco Cessation:Counseling Given: Not Answered Alcohol UseStandard Drinks/WeekCommentsNever0 (1 standard drink = 0.6 oz pure alcohol)last alchohol 2019; mixed drink rarelyDepressionAnswerDate RecordedPHQ-9 Total Score (Interpretation of Total Score 1-4 = Minimal depression; 5-9 = Mild depression; 10-14 = Moderate depression; 15-19 = Moderately severe depression)2 01/30/2025CommentsNoSex and Gender InformationValueDate RecordedSex Assigned at BirthNot on fileLegal BkuKdfdjr05/15/2022 8:46 AM EDTGender Identity Lrvsuc2609/11/2024 9:47 AM ESTSexual VcbbkwbxrarQywsxbbb02/24/2025 9:47 AM EST Last Filed Vital Signs Vital SignReadingTime TakenCommentsBlood Keudxfmh100/8607 9:58 AM EDT Codgn1807 8:59 AM UNVVaasrcfzuhz96.2 ??C (98.9 ??F)11/09/2024 2:54 PM EDTRespiratory Otlq400912/21/2024 8:59 AM EDTOxygen Tdiscbqkuo18%12/21/2024 8:59 AM EDTInhaled Oxygen Concentration--Aphguj45.7 kg (151 lb 6.4 oz)12/21/2024 8:59 AM AERLkblhb033.9 cm (5' 1 )11/09/2024 2:54 PM EDTBody Mass Index28.61011/09/2024 2:54 PM EDT Plan of Treatment DateTypeDepartmentCare Team (Latest Contact Info)Bucvtdclhtf63/19/2025 9:15 AM ESTTelemedicine Neurology Outpatient Care [address] [place] [phone] Roge Yanes MD [address] [place] [address] 08/01/2025 11:45 AM ESTClinical Support Encounter Clinical Lab [facility] [place] [address] [place] [address] [place] [phone] Lavern Paul MD, MPH [address] [place] [address] [place] [phone] 08/01/2025 1:00 PM ESTAppointment Imaging at [facility] [address] [place] [phone] Lavern Paul MD, MPH [address] [place] [address] [place] [phone] 08/07/2025 12:00 PM ESTOffice Visit Division of Medical Oncology [address] [place] [address] [place] [phone] Lavern Paul MD, MPH [address] [place] [address] [place] [address] Health MaintenanceDue DateLast DoneCommentsHEPATITIS C VIRUS AUYFKQCHF1997 HPV VACCINE (2 - 2-dose series)HIV SCREENING DISCUSSION 2012CERVICAL CANCER SCREENING NRIYLQUVDW74/19/0556FROHOFP81/27/2021 08/14/2010COVID-19 VACCINE ( season)5108/20/2020, 08/28/2020, 07/31/2020INFLUENZA VACCINE (#1)51HEP B VACCINECompleted 09/20/2000, 1997, 1997HPV VACCINE KZUFRvrpjhkrzyhi41/27/2011TDAP (ADULT)Uqfvowjct13/27/2011PNEUMOCOCCAL VACCINE SERIESAged OutNo longer eligible based on patient's age to complete this topic Insurance * Guarantor: Zainab MartinezAccount TypeRelation to PatientDate of BirthPhone Billing AddressPersonal/FgtzceYrtz[address] [facility] [place] [address] Care Teams Team MemberRelationshipSpecialtyStart DateEnd Date Erin Whiteside, AQUARIUM TANK ATTENDANT [address] [place] [address] PCP - General03/10/23 Rodney Olivas MD Hematology03/19/22 Cheikh Coelho MD CardiologistCardiovascular Disease10/07/22 Lavern Paul MD, MPH [address] [place] [phone] OncologistMedical Oncology03/31/23 Ron Ruano DO [address] [place] [address] Obstetrics & Gynecology04/06/23 Dolores Johnson, HYPO SPLASHER-AQUARIUM TANK ATTENDANT [address] [place] [address] [facility] Nurse Practitioner02/10/24 Vinicius oGmes MD, PhD [address] [place] [address] OncologistMedical Oncology02/10/24 Diego Apodaca MD [address] [place] [address] [address] [place] [address] Gastroenterology02/16/24
--- OUTSIDE RECORDS SUMMARY | 2025-06-15 19:26 | XMS_ITS | Encounter Summary ---
Author Organization [facility] enter Address [address] [place] [address] Care Team Providers Care Senior Medical Billing Specialist Name Role Phone Rodney Olivas MD Unavailable Cheikh Coelho MD Unavailable Unavailable Erin Whiteside PHARMACY COORDINATOR Primary Care Provider + Lavern Paul MD, MPH Unavailable [phone] Ron Ruano DO Unavailable [phone] Dolores Johnson APRN-PHARMACY COORDINATOR Unavailable [phone] Vinicius Gomes MD, PhD Unavailable [phone] Diego Apodaca MD Unavailable [phone] Reason for Visit * ReasonOnset DateCommentsFMLA/Vfqtikqoue69/24/2025 Encounter Details DateTypeDepartmentCare Team (Latest Contact Info)Duzvhixomtf81/24/2025Telephone Division of Medical Oncology [address] [place] [address] Lavern Paul MD, MPH [address] [facility] [address] [place] [address] FMLA/Disability Social History Tobacco UseTypesPacks/DayYears UsedDateSmoking Tobacco: NeverSmokeless Tobacco: NeverAlcohol UseStandard Drinks/WeekCommentsNever0 (1 standard drink = 0.6 oz pure alcohol)last alchohol 2019; mixed drink rarelyDepressionAnswerDate Recorded PHQ-9 Total Score (Interpretation of Total Score 1-4 = Minimal depression; 5-9 = Mild depression; 10-14 = Moderate depression; 15-19 = Moderately severe depression)CommentsNoSex and Gender InformationValueDate RecordedSex Assigned at BirthNot on fileLegal NbhOqbnuw48/15/2022 8:46 AM EDT Gender OwzxnwzwOanonl73/24/2025 9:47 AM ESTSexual DjhpcmmzbopBgrhppat91/24/2025 9:47 AM ESTdocumented as of this encounter Functional Status * Are you deaf or do you have serious difficulty hearing?AnswerDate of MduyijpiyaUbvpejQt78/04/2022 3:44 PM Yvrose Herrera RN * Are you blind or do you have serious difficulty seeing, even when wearing glasses?AnswerDate of OkrjnvsjrtPwwfsiOn34/04/2022 3:44 PM Yvrose Herrera RN * Do you have serious difficulty walking or climbing stairs (5 years or older)? AnswerDate of LkfsqpiyodBpkvnbUt41/04/2022 3:44 PM Yvrose Herrera RN * Do you have difficulty dressing or bathing (5 yrs or older)?AnswerDate of TyitdvvxkrQoemnxYt78/04/2022 3:44 PM Yvrose Herrera RN * Because of a physical, mental, or emotional condition, do you have difficulty doing errands alone such as visiting a doctor's office or shopping (5 yrs or older)?AnswerDate of PqsyzvfgckGvkdkdFy37/04/2022 3:44 PM Yvrose Herrera RN documented as of this encounter Mental Status * Because of a physical, mental, or emotional condition, do you have serious difficulty concentrating, remembering, or making decisions (5 yrs or older)? AnswerEntry XxfgBmyuacIq66/04/2022 3:44 PM Yvrose Herrera RN documented in this encounter Miscellaneous Notes * Telephone Encounter - Pinky Morales RN - 06/11/2025 2:44 PM EST Called patient. Informed patient we can fill out this form. 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 Daily nausea, abdominal pain, flushing and diarrhea 10-15 times per day and this causes severe fatigue. She takes short acting octreotide injections from home. States that loperamide doesn't work for herand she just had a lot of abdominal pain. Aggravating: hard to tell for her - gets flushing from spicy food Alleviating: octreotide - reduces to 8x/day She's never tried the long acting lanreotide. She is supposed to see a GI doc - She was told to try rifaximin and that didn't help. And also antibiotics that didn't work. She will be following up with them in June 28 or sometime. Rohit meeyr * Telephone Encounter - Lacey Stuart - 06/11/2025 2:30 PM EST Patient called in stating she need a medical statement for disability . Requesting a call back. documented in this encounter Plan of Treatment DateTypeDepartmentCare Team (Latest Contact Info)Xqnraygqsau90/19/2025 9:15 AM ESTTelemedicine [facility] [address] [place] [phone] Roge Yanes MD [address] [place] [address] 08/01/2025 11:45 AM ESTClinical Support Encounter Clinical Lab Branden Kang [address] [place] [phone] Lavern Paul MD, MPH [address] [place] [phone] 08/01/2025 1:00 PM ESTAppointment Imaging at [facility] [address] [place] [phone] Lavern Paul MD, MPH [address] [place] [phone] 08/07/2025 12:00 PM ESTOffice Visit Division of Medical Oncology [address] [place] [address] Lavern Paul MD, MPH [address] [place] [address] documented as of this encounter Visit Diagnoses Not on filedocumented in this encounter Additional Health Concerns AssessmentNoted TimePHQ-9 Depression Total Score: 2:28 PM EDT documented as of this encounter Care Teams Team MemberRelationshipSpecialtyStart DateEnd Erin Whiteside, PHARMACY COORDINATOR [address] [place] [phone] PCP - General03/10/23 Rodney Olivas MD Hematology03/19/22 Cheikh Coelho MD CardiologistCardiovascular Disease10/07/22 Lavern Paul MD, MPH [address] [place] [phone] OncologistMedical Oncology03/31/23 Ron Ruano DO [address] [place] [address] Obstetrics & Gynecology04/06/23 Dolores Johnson APRN-PHARMACY COORDINATOR [address] [place] [phone] GastroenterologistCertified Nurse Practitioner02/10/24 Vinicius Gomes MD, PhD [address] [place] [address] OncologistMedical Oncology02/10/24 Diego Apodaca MD [facility] [address] [place] [phone] Gastroenterology02/16/24documented as of this encounter
--- OUTSIDE RECORDS SUMMARY | 2025-06-15 19:27 | XMS_ITS | CCD ---
Author Organization [facility] Clini[facility]v Care Team Providers Care Fire Alarm Repairer Name Role Phone Ava Lundberg Unavailable Unavailable Primary Care Provider Unavailemanuel Whiteside RN, Erin Primary Care Provider Unavaildanielle Olivas MD, Rodney Unavailable Stevo EMERY, Erin Primary Care Provider Unavaildanielle Olivas MD, Rodney Unavailable Oanh DUPONT, PhD, Archie Naylor Unavailable Fletcher Coelho MD Unavailable ERIN WHITESIDE Primary Care Unavailable ISABEL ., DR TIMMY Sibley Admitting Unavaila ble ISABEL ., DR TIMMY Sibley Consulting Unavaila ble ISABEL ., DR TIMMY Sibley Attending Unavaila ble STEVO, ERIN Primary Care Unavailable ERIN WHITESIDE Consulting Unavailable ERIN WHITESIDE Attending Unavailable ERIN WHITESIDE Admitting Unavailable ERIN WHITESIDE Attending Unavailable JILLIAN, DR CAROLYN Quarles Consulting Unavailable STEVO, ERIN Primary Care Unavailable STEVO, ERIN Admitting Unavailable ERIN WHITESIDE Consulting Unavailable STEVO, ERIN Primary Care Unavailable IAN LOPEZ Admitting Unavailable IAN LOPEZ Attending Unavailable TIMMY SHAY Consulting Unavailable ELIAS ARMANDO Consulting Unavailable STEVO, ERIN Primary Care Unavailable JILLIAN, DR ACROLYN Quarles Consulting Unavailable ERIN WHITESIDE Attending Unavailable ERIN WHITESIDE Admitting Unavailable ERIN WHITESIDE Consulting Unavailable STEVO, ERIN Primary Care Unavailable SARAHI ARCEO Attending Unavailable SARAHI ARCEO Admitting Unavailable SARAHI ARCEO Consulting Unavailable STEVO, ERIN Primary Care Unavailable MISC, DR JACOBO Admitting Unavailable MISC, DR JACOBO Consulting Unavailable MISC, DR JACOBO Attending Unavailable ERIN WHITESIDE Consulting Unavailable ERIN WHITESIDE Attending Unavailable STEVO, ERIN Admitting Unavailable STEVO, ERIN Primary Care Unavailable MISC, DR JACOBO Admitting Unavailable STEVO, ERIN Primary Care Unavailable MISC, DR JACOBO Attending Unavailable MISC, DR JACOBO Consulting Unavailable STEVO, ERIN Consulting Unavailable STEVO, ERIN Attending Unavailable STEVO, ERIN Admitting Unavailable STEVO, ERIN Primary Care Unavailable MISC, DR JACOBO Admitting Unavailable MISC, DR JACOBO Consulting Unavailable MISC, DR JACOBO Attending Unavailable STEVO, ERIN Primary Care Unavailable STEVO, ERIN Primary Care Unavailable MISC, DR JACOBO Admitting Unavailable MISC, DR JACOBO Consulting Unavailable MISC, DR JACOBO Attending Unavailable GRILLIS ., DR TIMMY Sibley Admitting Unavaila ble GRILLIS ., DR TIMMY Sibley Consulting Unavaila ble GRILLIS ., DR TIMMY Sibley Attending Unavaila ble STEVO, ERIN Primary Care Unavailable FROYLAN EVANGELISTA Consulting Unavailable CITLALY, FLETCHER Consulting Unavailable STEVO, ERIN Primary Care Unavailable ADIS, DR SARAHI Quarles Attending Unavailable ADIS, DR SARAHI Quarles Admitting Unavailable ADIS, DR SARAHI Quarles Consulting Unavailable STEVO, ERIN Primary Care Unavailable GRILLIS ., DR TIMMY Sibley Consulting Unavaila ble GRILLIS ., DR TIMMY Sibley Attending Unavaila ble GRILLIS ., DR TIMMY Sibley Admitting Unavaila ble ZIEBTOREY, DR CAROLYN Quarles Consulting Unavailable HAY ., DR CARMONA Consulting Unavailable AGUBOSIM, JOSÉ LUIS Consulting Unavailable MISC, DR JACOBO Admitting Unavailable STEVO, ERIN Primary Care Unavailable MISC, DR JACOBO Consulting Unavailable MISC, DR JACOBO Attending Unavailable STEVO, ERIN Consulting Unavailable STEVO, ERIN Attending Unavailable STEVO, ERIN Primary Care Unavailable STEVO, ERIN Admitting Unavailable Deisy DUPONT, Rodney Unavailable Oanh DUPONT, PhD, Archie C Unavailable Fletcher Coelho MD Unavailable [phone] Erin Whiteside CNP S Primary Care Provider Unavailable Primary Care Provider Unavailemanuel Hugo MD, PhD, Archie C Unavailable Jaylon DUPONT, MPH, [facility] Unavailable Ron Ruano DO Unavailable ERIN WHITESIDE Primary Care Physician Alex PALMER-Dolores BIANCHI Unavailable Mireya DUPONT, PhD, Vinicius Chavez Unavailable [phone] Paulie DUPONT, Cortez T Unavailable Stevo, BANDAGE MAKER-C Erin Dary Primary Care Provider Stevo, BANDAGE MAKER-C Erin Dary Attending Provider Stevo, BANDAGE MAKER-C Erin Dary Referring Provider Deisy DUPONT, Rodney Unavailable Johnson BREAD OVEN OPERATOR-RETAIL WIRELESS SALES REPRESENTATIVE, Dolores J Unavailable AURELIA CHAKRABORTY Attending Unavailable STEVO, ERIN S Referring Unavailable STEVO, ERIN S Primary Care Unavailable STEVO, ERIN S Referring Unavailable STEVO, ERIN S Primary Care Unavailable DO Timmy Hall Attending Provider [phone] Stevo BREAD OVEN OPERATOR-RETAIL WIRELESS SALES REPRESENTATIVE, Erin S Primary Care Provider Stevo BANDAGE MAKER-C, Erin Dary Primary Care Provider Stevo BANDAGE MAKER-C, Erin Dary Attending Provider Johnson BREAD OVEN OPERATOR-TASH, Dolores J Unavailable Unavai lable Johnson BREAD OVEN OPERATOR-RETAIL WIRELESS SALES REPRESENTATIVE, Dolores J Unavailable Fletcher Coelho MD Unavailable Unavailable Stevo BANDAGE MAKER-C, Erin Dary Primary Care Provider [phone] Stevo BANDAGE MAKER-C, Erin Dary Attending Provider Stevo Erin Dary Attending Unavailable Stevo, Erin Dary Primary Care Unavailable Stevo, Erin Dary Admitting Unavailable Stevo, Erin Dary Primary Care Unavailable Timmy Hall Attending Unavailable Timmy Hall Admitting Unavailable Stevo, Erin Dary Attending Unavailable Stevo, Erin Dary Primary Care Unavailable Stevo, Erin Dary Admitting Unavailable Stevo, Erin Dary Referring Unavailable Stevo, Erin Dary Attending Unavailable Stevo, Erin Dary Primary Care Unavailable Stevo, Erin Dary Admitting Unavailable JAYLON, ANDREAS Referring Unavailable STEVO, ERIN S Primary Care Unavailable JAYLON, ANDREAS Attending Unavailable CHRISTOPHER MORALEZ Attending Unavailable STEVO, ERIN S Referring Unavailable STEVO, ERIN S Primary Care Unavailable YASIR, YOEL B Referring Unavailable STEVO, ERIN S Primary Care Unavailable YASIR, YOEL B Referring Unavailable PRIYANK NADEGE Attending Unavailable STEVO, ERIN S Primary Care Unavailable YASIR, YOEL B Referring Unavailable STEVO, EIRN S Primary Care Unavailable OSMIN MOORE Attending Unavailable OSMIN MOORE Referring Unavailable STEVO, ERIN S Primary Care Unavailable YASIR, YOEL B Attending Unavailable MORALEZ, YE Referring Unavailable STEVO, ERIN S Primary Care Unavailable MORALEZ, YE Attending Unavailable YASIR, YOEL B Referring Unavailable STEVO, ERIN S Primary Care Unavailable MORALEZ, YE Attending Unavailable STEVO, ERIN S Referring Unavailable STEVO, ERIN S Primary Care Unavailable MORALEZ, YE Referring Unavailable MORALEZ, YE Attending Unavailable STEVO, ERIN S Primary Care Unavailable JAYLON, ANDREAS Attending Unavailable JAYLON, ANDREAS Referring Unavailable STEVO, ERIN S Primary Care Unavailable MORALEZ, YE Referring Unavailable MORALEZ, YE Attending Unavailable STEVO, ERIN S Primary Care Unavailable MORALEZ, YE Attending Unavailable MORALEZ, YE Referring Unavailable STEVO, ERIN S Primary Care Unavailable ELAYNE BUSH Attending Unavailable ALDEN, RON Attending Unavailable ALDEN, RON Attending Unavailable ALDEN, RON Attending Unavailable ALDEN, RON Referring Unavailable Diego Apodaca Attending Unavaila ble SarminiDiego Attending Unavaila ble Allergies Allergy ClassificationReported Allergen(s)Allergy TypeDate of OnsetReaction(s) Facility (20 sources)gabapentin; Translations: [gabapentin]Drug Qafdgct97-15-1606Pjlkdu Only, Diarrhea, Nausea (finding), Diarrhea (finding), [facility] ([facility])metroNIDAZOLE; Translations: [metronidazole]Drug Tnnvwst06-24-4353 Nausea (finding), GI intolerance, GI Disturbance, Nause[facility] ([facility] source)metroNIDAZOLE; Translations: [Flagyl]Drug AllergyGerman [facility] Medications Current Medications MedicationDrug Class(es)DatesSig (Normalized)Sig (Original)ARIPiprazole 2 mg oral tablet (3 sources)Atypical AntipsychoticStart: 28-54-5692xzdz 1 mg by mouth once daily Abilify 2 mg Tab mg tab(s), Oral, Daily, Refills(s) 0 Start Date: 03/08/25 Status: Ordered Repeat number: 1Abilify ActivebusPIRone (1 source)BuSpar Activecholecalciferol 0.01 mg oral tablet (8 sources)Vitamin Dtake 1 tablet by mouth once dailycholecalciferol 10 MCG (400 UNIT) tablet Take 1 tablet by mouth daily. 0 Activesugar-free cholestyramine resin 4000 mg powder for oral suspension (1 source)Bile Acid SequestrantStart: 42-30-8046zibbweuxchzpfj 4 g/5 g Oral Pwdr 1 packet(s), Oral, BID, 60 EA, Refill(s) 6, [facility]/pharmacy #[id number], 154, cm, 02/07/24 8:50:00 EDT, Height/Length Dosing Start Date: 02/07/24 Status: Ordered colestipol hydrochloride 1000 mg oral tablet (6 sources)Bile Acid SequestrantStart: 71-74-0139vjut 2 tablets by mouth twice dailyColestid 1 g Tab 2 gm = 2 tab(s), Oral, BID, with a full glass of water, # 180 tab(s), Refills(s) 3, Pharmacy: [facility]/pharmacy #[id number], 154, cm, 03/08/25 14:03:00 EDT, Height/Length Dosing, 68.2, kg, 03/08/25 14:03:00 EDT, Weight Dosing Start Date: 03/08/25 Status: Ordered Quantity: 180.0 Unit: tab(s) Repeat number: 4Start: 26-60-8241colxdnwnqE (COLESTID) 1 g tablet Take 1 tablet (1 g total) by mouth every other day. TAKE 2 TABLETSBY MOUTH TWICE A DAY WITH A FULL GLASS OF WATER, per patient every other day 02/17/2024 Activecyproheptadine hydrochloride 4 mg oral tablet (8 sources)Start: 96-48-6807zlsa 1 tablet by mouth four times daily as needed Cyproheptadine 4 MG tablet Take 1 tablet by mouth 4 times daily as needed for Other (flushing). Flushing: periactin 4 mg every 6 hours as needed. Will start @ night as it can cause dizziness, drowsiness 60 tablet 3 07/08/2022 Active Emgality Prefilled Pen (2 sources)Start: 20-25-8363ejaice 1 mg by subcutaneous injection every month Emgality Prefilled Pen mg, SubCutaneous, qMonth, Refills(s) 0 Start Date: 03/08/25 Status: Ordered Repeat number: 10.4 ml enoxaparin sodium 100 mg/ml prefilled syringe (16 sources)Low Molecular Weight HeparinStart: 05-29-2022 End: 06-61-0691Eabiixxtyz Sodium 40 MG/0.4ML injection Indications: DVT/PE prophylaxis Inject one syringe (0.4 mL)under the skin every 24 hours. 10 mL 0 05/29/2022 ActiveStart: 05-22-2022 End: 77-03-4186Yfcycufxnm Sodium (LOVENOX) injection 40 mgFLUoxetine 20 mg oral capsule (20 sources)Serotonin Reuptake InhibitorStart: 08-17-2023 End: 65-12-8964clll 1 mg by mouth once dailyProzac 20 mg Cap mg cap(s), Oral, Daily, Refills(s) 0 Start Date: 03/08/25 Status: Ordered Repeat number: 1Start: 05-25-2022 End: 23-81-1064YFEllvonom (PROZAC) capsule 40 mgStart: 73-57-1607efgt 1 tablet by mouth in the morning, then take 1 tablet by mouth at bedtimeFLUoxetine (PROzac) 20 MG tablet Take 1 tablet (20 mg total) by mouth in the morning and 1 tablet (20 mg total) before bedtime. 01/28/2022 Activetake 2 capsules by mouth once dailyFLUoxetine 20 MG capsule Take 2 capsules by mouth daily. ActivePROzac Active1 ml galcanezumab-gnlm 120 mg/ml auto-injector (12 sources)Start: 98-17-7283Fhvprfgkmsle-gnlm (Emgality) 120 MG/ML Solution Auto-injector Indications: Chronic migraine withoutaura without status migrainosus, not intractable Inject 120 mg under the skin every 30 days. Use 1ml 30days after the initial loading dose of 2ml. Afterwards, continue to use it every 30 days. 1 mL 11 11/16/2024 ActiveStart: 11-15-2024 End: 99-77-8780alxpeq 240 mg by subcutaneous injection onceGalcanezumab-gnlm 120 MG/ML Solution Auto-injector Indications: Chronic migraine without aura without status migrainosus, not intractable Inject 240 mg under the skin once for 1 dose. 2 mL 5ActivehydrOXYzine (5 sources)AntihistamineStart: 76-25-8240xledJDCarze 100 mg, Refills(s) 0 Start Date: 03/08/25 Status: Ordered Repeat number: 1take 1 capsule by mouth three times daily as needed for anxietyhydrOXYzine pamoate 50 MG capsule Take 1 capsule by mouth 3 times daily as needed for Anxiety. ActivelamoTRIgine 100 mg oral tablet (20 sources)Mood Stabilizer, Anti-epileptic AgentStart: 86-77-7304fudj 1 mg by mouth twice dailyLamictal 100 mg Tab mg tab(s), Oral, BID, Refills(s) 0 Start Date: 03/08/25 Status: Ordered Repeat number: 1Start: 25-63-6765gnvd 1 tablet by mouth once dailylamoTRIgine (LaMICtal) 25 MG tablet Indications: Depression with anxiety Take 1 tablet (25 mg) by mouth Daily 90 tablet 2 09/28/2023 Activetake 0.5 tablet by mouth once dailylamoTRIgine 100 MG tablet Take 0.5 tablets by mouth daily. ActivelamoTRIgine 100 MG tablet daily. Activetake 2 tablets by mouth once dailylamoTRIgine 25 MG tablet Take 2 tablets by mouth daily. 0 Active 0.2 ml lanreotide 300 mg/ml prefilled syringe (2 sources)Somatostatin AnalogStart: 06-32-1177Ncivkesmuk 60 MG/0.2ML Solution Inject 1 Syringe under the skin every 28 days. 0.2 mL 11 5Active loperamide hydrochloride 2 mg oral capsule (20 sources)Opioid AgonistLoperamide 2 MG capsule Take 1 capsule by mouth as needed for Diarrhea. 2 stat then 1 cap after each loose stool ActiveMagnesium Hydroxide (2 sources)Magnesium Hydroxide (MILK OF MAGNESIA PO) Take by mouth as needed. 0 Activemetoclopramide 10 mg oral tablet (2 sources)Dopamine-2 Receptor AntagonistStart: 78-77-0526nqgutylfacahos (Reglan) 10 MG tablet Indications: Heartburn during in third trimester Take 1 tablet (10 mg) by mouth in the morning and 1 tablet (10 mg) at noon and 1 tablet (10 mg) in the evening. Take before meals. Take 1 tablet by mouth 30 minutes prior to meals 3 times daily as neededfor nausea.. 90 tablet 2 07/14/2023 ActiveMultiple Vitamin (multivitamin) capsule (8 sources)take 1 capsule by mouth once dailyMultiple Vitamin (multivitamin) capsule Take 1 capsule by mouth daily. 0 ActiveMultiple Vitamins-Minerals (Multivitamin w/ minerals, THERAPEUTIC-M,) tablet (12 sources)take 1 tablet by mouth once dailyMultiple Vitamins-Minerals (Multivitamin w/ minerals, THERAPEUTIC-M,) tablet Take 1 tablet by mouthdaily. Activenitrofurantoin, macrocrystals 25 mg / nitrofurantoin, monohydrate 75 mg oral capsule (1 source)Nitrofuran AntibacterialStart: 22-48-2116rduk 1 capsule by mouth every twelve hoursMacrobid 100 MG 1 capsule with food Orally every 12 hrs for 5 days Dec, ActiveNurtec ODT (2 sources)Start: 57-83-5974Knckrp ODT See Instructions, as needed, Refills(s) 0 Start Date: 03/08/25 Status: Ordered Repeat number: 1octreotide 20 mg injection (20 sources)Somatostatin AnalogStart: 26-17-6714drzycjrlzh 20 mg IM Inj See Instructions, 20 mg IntraMuscular as needed, Refills(s) 0 Start Date: 03/08/25 Status: Ordered Repeat number: 1Start: 11-08-2023 End: 40-20-8310skwnoj 1 mL by subcutaneous injection three times daily as needed Octreotide Acetate 100 MCG/ML Solution Prefilled Syringe prefilled syringe Inject 1 mL under the skin 3 times daily as needed for Other (carcinoid syndrome). 90 mL 03/17/2024 ActiveStart: 10-18-2023 End: 39-61-0750Lwpnjjjonq acetate (SandoSTATIN [place]) 20 MG Kit injection Inject 20 mg intramuscularly every 28 days. 1 kit 11 10/18/2023 09/28/2024 Discontinued (Therapy completed)Start: 48-99-0230nqrvkacbkr,microspheres (SandoSTATIN [place]) 20 mg injection Inject 20 mg into the appropriate muscle Once every four weeks. 10/18/2023 ActiveStart: 62-84-7467Lxjfmhqijm acetate 20 MG Kit injection Indications: Carcinoid syndrome , Primary malignant neuroendo crine tumor of appendix Inject 20 mg intramuscularly every 28 days. Diagnosis code: E34.0 1 kit 11 09/03/2022 Activeoctreotide (SandoSTATIN) 100 MCG/ML injection Infuse 100 mcg into a venous catheter in the morning and 100 mcg in the evening and 100 mcg before bedtime. Activeondansetron 4 mg oral tablet (20 sources)Serotonin-3 Receptor AntagonistStart: 11-09-2024 End: 27-99-4187rxzl 1 tablet by mouth every eight hours as neededOndansetron 4 MG tablet Take 1 tablet by mouth every 8 hours as needed for Nausea / Vomiting. 60 tablet 11 11/09/2024 07/07/2025 ActiveStart: 04-06-2024 End: 97-53-3431atke 1 tablet by mouth every six hours as neededOndansetron 8 MG Tab Dispersible tablet Take 1 tablet by mouth every 6 hours as needed for Nausea /Vomiting. 270 tablet 04/06/2024 07/05/2024 ActiveStart: 06-30-2023 End: 25-92-6661qzzv 1 tablet by mouth every six hoursondansetron ODT (Zofran- ODT) 4 MG disintegrating tablet Indications: Nausea and vomiting, unspecified vomiting type Take 1 tablet (4 mg) by mouth every 6 (six) hours 120 tablet 1 06/30/2023 09/28/2023 ActiveStart: 07-08-5458apdv 1 tablet by mouth once daily as needed for nauseaondansetron (ZOFRAN) 8 mg tablet Take 1 tablet (8 mg total) by mouth daily as needed for nausea or vomiting. 02/09/2023 ActiveStart: 53-38-4041xmou 1 tablet by mouth every eight hours as neededOndansetron 4 MG tablet Take 1 tablet by mouth every 8 hours as needed for Nausea / Vomiting. 60 tablet 1 11/25/2022 Activetake 1 tablet by mouth every eight hours as needed Ondansetron 4 MG tablet Take 4 mg by mouth every 8 hours as needed for Nausea / Vomiting. 0 ActiveoxyCODONE hydrochloride 5 mg oral tablet (20 sources)Opioid AgonistStart: 53-59-1012dqhIGZGMO 5 mg Tab 21 EA, 0 Refill(s), TAKE 1 TABLET BY MOUTH EVERY 8 HOURS NEEDED FOR SEVERE PAIN FOR UP TO 7 DAYS, Refills(s) 0 Start Date: 01/25/24 Status: OrderedStart: 12-10-2023 End: 16-89-5870ssul 1 tablet by mouth every eight hours as needed for pain oxyCODONE 5 MG tablet Indications: Abdominal pain, unspecified abdominal location Take 1 tablet by mouth every 8 hours as needed for Severe Pain for up to 7 days. 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 30 tablet 0 05/28/2022 Activephenazopyridine hydrochloride 200 mg oral tablet (1 source)Start: 31-46-6383fghn 1 tablet by mouth every eight hoursPyridium 200 MG 1 tablet after meals Orally Three times a day for 2 day(s) Dec, Activepregabalin 75 mg oral capsule (5 sources)Start: 10-22-2022 End: 37-29-7128csxi 1 capsule by mouth at bedtimepregabalin 75 MG capsule Indications: Fibromyalgia muscle pain Take 1 capsule by mouth at bedtime. 30 capsule 11 10/22/2022 04/20/2023 ActivePrenatal MV-Min-Fe Fum-FA-DHA ( 1 PO) (2 sources) MV-Min-Fe Fum-FA-DHA ( 1 PO)Probiotic Product (PROBIOTIC DAILY PO) (12 sources)take 1 tablet by mouth once dailyProbiotic Product (PROBIOTIC DAILY PO) Take 1 tablet by mouth daily. 0 ActiveProbiotic Product (PROBIOTIC PO) (20 sources)Probiotic Product (PROBIOTIC PO) Take by mouth. + Prebiotic Active rifAXIMin 550 mg oral tablet (1 source)Rifamycin AntibacterialStart: 03-08-2025 End: 86-46-9557skzk 1 tablet by mouth three times dailyrifaximin 550 mg oral tablet 550 mg = 1 tab(s), Oral, TID, X 14 day(s), # 42 tab(s), Refills(s) 0, P harmacy: [facility]/pharmacy #[id number], 154, cm, 03/08/25 14:03:00 EDT, Height/Length Dosing, 68.2, kg, 03/08/25 14:03:00 EDT, Weight Dosing Start Date: 03/08/25 Stop Date: 03/22/25 Status: Ordered Quantity: 42.0 Unit: tab(s) Repeat number: 1 rimegepant 75 mg disintegrating oral tablet (4 sources)Start: 21-68-3401Gywmmzlocr (Nurtec) 75 MG Tab Dispersible Take 1 tablet by mouth daily as needed for up to 96 doses. Use one tablet at the onset of severe migraine. Don't exceed one tablet within 24 hours. 8 tablet 11 12/28/2024 Activerizatriptan 10 mg oral tablet (5 sources)Serotonin-1b and Serotonin-1d Receptor AgonistStart: 90-09-2334pptu 1 tablet by mouth every two hours as needed for headacherizatriptan 10 MG tablet Take 1 tablet by mouth as needed (for severe headache/migraine). May repeat in 2 hours if needed, max daily dose 30 mg 9 tablet 11 11/09/2024 Activesimethicone 180 mg oral capsule (2 sources)Start: 83-95-7725poet 1 capsule by mouth four times daily as needed simethicone 180 mg oral capsule 180 mg = 1 cap(s), Oral, QID, PRN Gas, # 120 cap(s), Refills(s) 3, Pharmacy: [facility]/pharmacy #[id number], 154, cm, 03/08/25 14:03:00 EDT, Height/Length Dosing, 68.2, kg, 03/08/25 14:03:00 EDT, Weight Dosing Start Date: 03/08/25 Status: Ordered Quantity: 120.0 Unit: cap(s) Repeat number: 4 vancomycin 125 mg oral capsule (4 sources)Glycopeptide Antibacterialtake 1 capsule by mouth four times daily Vancomycin 125 MG capsule Take 125 mg by mouth 4 times daily. 0 Active Completed/Discontinued Medications MedicationDrug Class(es)DatesSig (Normalized)Sig (Original)acetaminophen 325 mg oral tablet (20 sources)Start: 05-26-2022 End: 05-98-2646ernkidpwryayf (TYLENOL) tablet 975 mgStart: 05-25-2022 End: 57-53-3115dwriovtknjtzr (TYLENOL) oral solution 975 mgStart: 05-22-2022 End: 77-57-0425fmqyigozflccc (TYLENOL) tablet 650 mgStart: 05-22-2022 End: 56-59-7243wbilpiamjvmxe (TYLENOL) tablet 975 mg End: 99-86-6466qsrm 500 mg by mouth in the morningAcetaminophen (TYLENOL EXTRA STRENGTH PO) Take 500 mg by mouth in the morning. Activetake 2 tablets by mouth every four hoursAcetaminophen 325 MG tablet Take 2 tablets by mouth every 4 hours. Avnaeh519 ml albumin human, halfway 50 mg/ml injection (1 source)Human Serum AlbuminStart: 05-24-2022 End: 29-95-7280caxbxzr human 5 % injection 25 gamylase [id number] unt / lipase 45655 unt / protease [id number] unt delayed release oral capsule (20 sources)Start: 11-22-2023 End: 35-94-3830Tipvcnptvdwo, Ect-Mcap-Kgew, (Creon) 43376-542668 units Cap DR Particles Please take one cap with each meal, and one cap with each snack. 120 capsule 11/22/2023 09/28/2024 DiscontinuedStart: 83-33-5803Yrbldgqrlknl, Nnj-Rwkv-Izhs, (Creon) 24002-229179 units Cap DR Particles Indications: Exocrine pancreatic insufficiency Take two caps with each meal and one cap with each snack 210 capsule 1 09/10/2022 Activebarium sulfate (READI-CAT) 2 % oral susp 900 mL (1 source)Start: 03-31-2022 End: 35-25-5892njzmad sulfate (READI-CAT) 2 % oral susp 900 mLbenzocaine 15 mg / menthol 3.6 mg oral lozenge (1 source)Standardized Chemical AllergenStart: 05-23-2022 End: 24-78-3282gnyxismznr-menthol (CEPACOL) 15-3.6 MG per lozenge 1 lozenge bisacodyl 5 mg delayed release oral tablet (2 sources)Stimulant LaxativeStart: 04-23-2022 End: 68-24-2431oanrsjynr [address] Take all 4 tablets at 11am the day before surgery 4 tablet 0 04/23/2022 06/09/2022 Discontinued (Therapy completed) bupivacaine (MARCAINE) 0.125% and fentaNYL (SUBLIMAZE) 4 mcg/mL epidural (1 source)Start: 05-22-2022 End: 40-47-4970nzphfwyypwb (MARCAINE) 0.125% and fentaNYL (SUBLIMAZE) 4 mcg/mL epiduralcalcium chloride 0.0014 meq/ml / potassium chloride 0.004 meq/ml / sodium chloride 0.103 meq/ml / sodium lactate 0.028 meq/ml injectable solution (2 sources)Start: 05-23-2022 End: 64-20-5088fgoboiku ringers IV solution 1,000 mLStart: 05-22-2022 End: 93-34-9291slmvzvkw ringers IV solutioncetirizine hydrochloride 10 mg oral tablet (4 sources)Histamine-1 Receptor AntagonistStart: 10-21-2023 End: 61-68-1682yexa 1 tablet by mouth at bedtimecetirizine (ZyrTEC ALLERGY) 10 MG tablet Indications: Mastitis Take 1 tablet (10 mg) by mouth at bedtime 90 tablet 2 10/21/2023 08/17/2024 DiscontinuedCitalopram (1 source)Serotonin Reuptake InhibitorCeleXA Not-Takingdicyclomine hydrochloride 10 mg oral capsule (17 sources)AnticholinergicStart: 12-10-2023 End: 92-86-5410vpbn 1 capsule by mouth four times daily as needed for muscle spasmsDicyclomine 10 MG capsule Take 1 capsule by mouth 4 times daily as needed for Abdominal Spasms for up to 7 days. 28 capsule 12/10/2023 09/28/2024 DiscontinueddiphenhydrAMINE (BENADRYL) injection 25 mg (1 source)Start: 05-22-2022 End: 53-18-5571svpgohfolyQQKHK (BENADRYL) injection 25 mg1 ml erenumab-aooe 70 mg/ml auto-injector (4 sources)Start: 11-09-2024 End: 10-14-0523exszay 70 mg by subcutaneous injection every 30 daysErenumab-aooe (Aimovig) 70 MG/ML Solution Auto-injector Inject 70 mg under the skin every 30 days. 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 180 capsule 1 09/11/2022 10/22/2022 Discontinued (Therapy completed)Start: 05-22-2022 End: 63-41-9868hffllmieiz (NEURONTIN) capsule 800 mgGallium Ga 68 Dotatate (Netspot) 0.5-5.94 millicurie (2 sources)Start: 04-25-2024 End: .5-5.94 millicurie, Intravenous, ONCE, 1 dose, On Wed04/25/24 at 0930Start: 08-19-2022 End: 70-83-0222Imcynvd Ga 68 Dotatate (Netspot) 0.5-5.94 ulhkkkromo361 ml glucose 50 mg/ml / potassium chloride 0.02 meq/ml / sodium chloride 4.5 mg/ml injection (1 source)Start: 05-22-2022 End: 50-54-5692drydsrvj 5% and sodium chloride 0.45% 1,000 ml with potassium chloride 20 mEq premix IV solution1 ml heparin sodium, porcine 5000 unt/ml prefilled syringe (1 source)Unfractionated Heparin, Anti-coagulantStart: 05-22-2022 End: 95-46-8801yvcmjsf injection 5,000 UnitsIbuprofen (17 sources)Nonsteroidal Anti-inflammatory DrugStart: 05-26-2022 End: 86-44-9576fopanqrts (MOTRIN) tablet 600 mgStart: 05-25-2022 End: 59-49-2214tuiktbxgm (ADVIL;MOTRIN) oral suspension 600 mgStart: 05-22-2022 End: 28-63-1281cweelkjii (MOTRIN) tablet 600 mgtake 1 tablet by mouth every six hours as neededIbuprofen 400 MG tablet Take 1 tablet by mouth every 6 hours as needed for Mild Pain. Activetake 1 tablet by mouth every six hours as needed Ibuprofen 200 MG tablet Take 1 tablet by mouth every 6 hours as needed for Mild Pain. 0 Activeiodixanol (VISIPAQUE) injection 320 mg/mL for [facility] IR (1 source)Start: 03-31-2022 End: 58-21-0337rolwjnaxn (VISIPAQUE) injection 320 mg/mL for [facility] IRIohexol (OMNIPAQUE) 300 MG/ML 50 mL in Water liquid (free water) 950 mL (3 sources)Start: 09-18-2024 End: 36-29-0179zbgj 1 dose by mouth once15,000 mg, Oral, ONCE, 1 dose, On Wed09/18/24 at 1300, For administration to inpatients, to be givenby RN on inpatient nursing unit., CT ProcedureStart: 02-07-2024 End: 70-14-6837uyie 1 dose by mouth once15,000 mg, Oral, ONCE, 1 dose, On Wed02/07/24 at 1300, For administration to inpatients, to be given by RN on inpatient nursing unit., CT ProcedureStart: 11-06-2023 End: 32-52-9185vjhf 1 dose by mouth once15,000 mg, Oral, ONCE, 1 dose, On Wed11/06/23 at 1200, For administration to inpatients, to be given by RN on inpatient nursing unit., CT ProcedureIohexol (OMNIPAQUE) 300 MG/ML vial 50 mL (1 source)Start: 08-19-2022 End: 42-14-7842Swazkni (OMNIPAQUE) 300 MG/ML vial 50 mLiohexol (OMNIPAQUE) 350 MG/ML injection 1-171 mL (8 sources)Start: 01-22-2025 End: -171 mL, Intravenous, ONCE, 1 dose, On Wed01/22/25 at 1045, Extravasation Risk, CT ProcedureStart: 09-18-2024 End: -171 mL, Intravenous, ONCE, 1 dose, On Wed09/18/24 at 1230, Extravasation Risk, CT ProcedureStart: 04-13-2024 End: -171 mL, Intravenous, ONCE, 1 dose, On Eliana 04/13/24 at 1815, Extravasation Risk, CT ProcedureStart: 02-07-2024 End: -171 mL, Intravenous, ONCE, 1 dose, On Wed02/07/24 at 1400, Extravasation Risk, CT ProcedureStart: 11-06-2023 End: -171 mL, Intravenous, ONCE, 1 dose, On Wed11/06/23 at 1200, Extravasation Risk, CT ProcedureStart: 10-22-2022 End: 61-43-7569ytlpsef (OMNIPAQUE) 350 MG/ML injection 1-171 mLStart: 08-19-2022 End: 73-55-4566hginfzf (OMNIPAQUE) 350 MG/ML injection - mLIohexol (OMNIPAQUE) 9 MG/ML Bottle 1,000 mL (2 sources)Start: 01-22-2025 End: 26-42-7269mrvv 1 dose by mouth once1,000 mL, Oral, ONCE, 1 dose, On Wed01/22/25 at 1000, For administration to inpatients, to be given by RN on inpatient nursing unit., CT ProcedureStart: 04-13-2024 End: 79-10-9615yhud 1 dose by mouth once1,000 mL, Oral, ONCE, 1 dose, On Eliana 04/13/24 at 1815, For administration to inpatients, to be givenby RN on inpatient nursing unit., CT Sccxypyap88 ml magnesium sulfate 80 mg/ml injection (5 sources)Start: 05-28-2022 End: 18-12-1463Mpwwjxzvb Sulfate 4 g in sterile water 50 ml premix IVPBStart: 05-25-2022 End: 80-74-6315uecgniyip sulfate 1 g in dextrose 5% 100 mL premix IVPBStart: 05-22-2022 End: 89-16-0482Alrzmszzq Sulfate 4 g in sterile water 50 ml premix IVPB OLANZapine 5 mg disintegrating oral tablet (5 sources)Atypical AntipsychoticStart: 05-25-2022 End: 64-73-6562qgvz 1 tablet by mouth once daily at bedtime5 mg, Oral, DAILY AT BEDTIME, First dose on Wed05/25/22 at 2100, Until Discontinued Administer intact tablet to dissolve in mouth; do not split, crush, or chew. End: 62-15-4283pikn 1 tablet by mouth at bedtimeOLANZapine 5 MG tablet Take 5 mg by mouth At bedtime. 0 06/09/2022 Discontinued (Therapy completed)omeprazole 20 mg delayed release oral capsule (20 sources)Proton Pump InhibitorStart: 04-07-2023 End: 76-75-1821ieth 1 capsule by mouth before mealtimeomeprazole (PriLOSEC) [address] capsule Indications: Heart burn Take 1 capsule (20 mg) by mouth in the morning. Take before meals. Do not crush or chew. . 90 capsule 3 04/07/2023 08/17/2024 Discontinuedomeprazole [address] capsule Take 1 capsule by mouth as needed. 0 Activeondansetron 4mg/2ml (ZOFRAN) injection 4 mg (1 source)Start: 05-22-2022 End: 78-56-7414kefj 4 mg intravenously every six hours as neededondansetron 4mg/2ml (ZOFRAN) injection 4 mgpantoprazole 40 mg delayed release oral tablet (5 sources)Proton Pump InhibitorStart: 05-28-2022 End: 11-15-5321kdijdfqymjpy (PROTONIX) tablet DR 40 mgStart: 05-23-2022 End: 01-43-4145lfjxguerrbzk (PROTONIX) injection 40 mg End: 28-30-3338tjpp 2 tablets by mouth once dailypantoprazole [address] tablet DR Take 2 tablets by mouth daily. 01/06/2024 Discontinued (Patient Preference)phenol 14 mg/ml mouthwash (1 source)Start: 05-22-2022 End: 84-60-4059omphrr (CHLORASEPTIC) 1.4 % oral spray 2 sprayPNV no.95/ferrous fum/folic ac ( ORAL) (1 source) End: 14-09-7556znhu 1 tablet by mouth in the morningPNV no.95/ferrous fum/folic ac ( ORAL) Take 1 tablet by mouth in the morning. 04/13/2024 Dis continued (Patient Stopped On Own)polyethylene glycol 3350 56931 mg powder for oral solution (2 sources)Osmotic LaxativeStart: 04-23-2022 End: 46-48-2733rqzvsrfzgthn glycol 17 GM/SCOOP Powder powder 11 AM: Take entire contents over 2 hours as instructed. 250 g 0 04/23/2022 06/09/2022 Discontinued (Therapy completed)100 ml potassium chloride 0.1 meq/ml injection (1 source)Start: 05-22-2022 End: 73-52-8947mfjwaykcw chloride 10 mEq in sterile water 100 ml premix IVPB Vit-DSS-Fe Cbn-FA ( AD PO) (3 sources) End: 99-66-2040Thyekjbq Vit-DSS-Fe Cbn-FA ( AD PO) Take by mouth. 01/06/2024 Discontinued (Patient Preference) Vit-DSS-Fe Cbn-FA ( AD PO) Take by mouth. Activesennosides, halfway 8.6 mg oral tablet (3 sources)Start: 05-27-2022 End: 82-53-9875cptr 1 tablet by mouth once daily as needed for constipationsenna 8.6 MG tablet Take 1 tablet by mouth daily as needed for Constipation. Continue stool softeners while on narcotics. Hold for loose stools. 0 05/28/2022 06/09/2022 Discontinued (Therapy completed)20 ml sodium chloride 9 mg/ml injection (10 sources)Start: 01-22-2025 End: -100 mL, Intravenous, ONCE NEEDED, 1 dose, Starting on Wed01/22/25 at 1044, Until Wed01/22/25 at 1044, Flush, CT ProcedureStart: 09-18-2024 End: -100 mL, Intravenous, ONCE NEEDED, 1 dose, Starting on Wed09/18/24 at 1228, Until Wed09/18/24 at 1350, Flush, CT ProcedureStart: 04-13-2024 End: -100 mL, Intravenous, ONCE NEEDED, 1 dose, Starting on Eliana 04/13/24 at 1800, Until Eliana 04/13/24 at 1900, Flush, CT ProcedureStart: 02-07-2024 End: -100 mL, Intravenous, ONCE NEEDED, 1 dose, Starting on Wed02/07/24 at 1346, Until 02/07/24 at 1347, Flush, CT ProcedureStart: 11-06-2023 End: -100 mL, Intravenous, ONCE NEEDED, 1 dose, Starting on 11/06/23 at 1146, Until 11/06/23 at 1146, Flush, CT ProcedureStart: 10-22-2022 End: 00-75-9612Xruprs chloride (PF) 0.9 % injection 1-100 mLStart: 08-19-2022 End: 66-13-8359Irsnga chloride (PF) 0.9 % injection 1-100 mLStart: 05-22-2022 End: 45-88-2996uhlnfh chloride 0.9% IV solution 250 mLStart: 03-31-2022 End: 55-13-5953ranhib chloride (PF) 0.9 % injection 1-100 mL Problems Active Problems Problem ClassificationProblemDateDocumented DateEpisodic/ChronicAbdominal pain (20 sources)Unspecified abdominal pain; Translations: [Right lower quadrant pain]Onset: 56-81-2717IfwtzczqHxnztgz disorders (3 sources)Mixed anxiety and depressive iezliqvr49-83-6738GelelovRktxcpy tract disease (3 sources)Cholelithiasis without uafbbyahevr91-74-7851NtboxstgYcjiyq of cervix (3 sources)Atypical squamous cells of undetermined significance on cervical Papanicolaou ccjly89-37-9864ZxvlqnnrYiayoo of colon (2 sources)Malignant tumor of appendix; 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]Onset: 69-05-8624MjxipcoWjasryp dysrhythmias (7 sources)Tachycardia; Translations: [Tachycardia, unspecified]Onset: 87-07-9466SbcjlywpEayyyhrbqjrfg symptoms and ill-defined conditions (2 sources)Increased frequency of urination; Translations: [Frequency of micturition]Onset: 12-22-2021 Resolved: 33-36-9713IpzyksbuTvtknikt; including migraine (11 sources)Migraine; Translations: [Migraine without aura, not refractory ] 44-27-0803XeseexuDrabsocw; including migraine (2 sources)Headache; including migraine; Translations: [Headache, unspecified] Onset: 04-83-1317Tgcfxgusuyyym and screening for infectious disease (8 sources)Raised antinuclear antibody; Translations: [Raised antibody titer] Onset: 90-07-2303EdqeibttBooophxfci infection (3 sources)Clostridium difficile lysutyz65-82-4908SkffrvciBbkapuy and fatigue (1 source)Chronic fatigue syndrome; Translations: [Myalgic encephalomyelitis/chronic fatigue syndrome (ME/CFS)]45-12-5570IyfcjgtCkpoumv and fatigue (4 sources)Other fatigue; Translations: [OTHER FATIGUE]Onset: 64-14-7528Tbnyojgr Malignant neoplasm without specification of site (20 sources)Primary malignant neuroendocrine neoplasm of appendix; Translations: [Other malignant neuroendocrine tumors]Onset: 95-89-9103OwzuffhTyhpsokwu disorders (4 sources)Menstrual period late; Translations: [Irregular menstruation, unspecified]Onset: 12-22-2021 Resolved: 49-47-2809FwwmhifCkwj disorders (1 source)Major depressive disorder, single episode, unspecified; Translations: [NONA DEPRESS D/O SINGLE EPIS UNS]Onset: 85-80-6128ImejpihCnhedx and vomiting (5 sources)Nausea; Translations: [Nausea]Onset: 14-68-8838AfwjnlmnIpirwxbji of unspecified nature or uncertain behavior (16 sources)Neoplasm of uncertain behavior of appendix; Translations: [Neoplasm of appendix]Onset: 129289-04-9577RhkzsmcpQrwpjagjnkpx breast conditions (9 sources)Unspecified lump in unspecified breast; Translations: [Solitary cyst of left breast]Onset: 10-66-9903GjkkhjijYesinprraeu deficiencies (4 sources)Vitamin D deficiency, unspecified; Translations: [Vitamin D deficiency]Onset: 183401-72-4550AzxudlcZswepjznnlu deficiencies (3 sources)Iron kgvjrytrbr66-00-6031ArhweqmqYrbrn connective tissue disease (2 sources)Fibromyalgia; Translations: [Fibromyalgia]EpisodicOther connective tissue disease (3 sources)Pain in lower srro68-76-6915GgmltbweAajhg endocrine disorders (20 sources)Carcinoid syndrome; 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]Onset: 38-47-3918UfekvcvViksv endocrine disorders (3 sources)Carcinoid syndrome; 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]Onset: 62-95-2901LmbwkioHzdci endocrine disorders (3 sources)Rppfkkzhsxiwlmp01-19-3285XzwujeiClnhh female genital disorders (4 sources)Pelvic congestion syndrome; Translations: [Other specified conditions associated with female genital organs and menstrual cycle]45-74-1049Dpkhjsiw Other gastrointestinal disorders (8 sources)Diarrhea; Translations: [Diarrhea, unspecified]Onset: 01-25-2024 34-79-6165ZwsbrhstXgnrf gastrointestinal disorders (3 sources)H/O: ylwzmjv63-19-3971GougdqwwWguil gastrointestinal disorders (2 sources)Swollen abdomen; Translations: [Abdominal distension (gaseous)]Onset: 65-47-0479NaldznegWnuqj gastrointestinal disorders (2 sources)Abdominal tphrhfsy95-10-2310AcjsvkxnYwlnq infections; including parasitic (1 source)H/O: infectious disease; Translations: [Personal history of other infectious and parasitic diseases]Onset: 33-98-3414BfadcmqbYqnge inflammatory condition of skin (1 source)Rosacea; Translations: [Rosacea, unspecified]00-65-1701LfhtdzhVtvlb inflammatory condition of skin (2 sources)Rosacea, unspecified; Translations: [Rosacea, unspecified]Onset: 18-42-2798ZojmnddJzwgp liver diseases (1 source)Elevated liver enzymes level; Translations: [Abnormal levels of other serum enzymes]57-61-4334NpwamcweLhqeo liver diseases (1 source)Enzyme level - finding; Translations: [Abnormal levels of other serum enzymes]Onset: 87-07-9452SzffockfPhokk lower respiratory disease (3 sources)Dyspnea; Translations: [Shortness of breath]EpisodicOther nervous system disorders (2 sources)Other chronic pain; Translations: [Other chronic pain]Onset: 34-73-0019QpalaqsUqpgk nervous system disorders (1 source)Postoperative pain ; Translations: [Other acute postprocedural pain] EpisodicOther non-traumatic joint disorders (1 source)Multiple joint pain; Translations: [Pain in unspecified joint] 04-90-3260TjimltcwBjhlp nutritional; endocrine; and metabolic disorders (20 sources)Obese class I; Translations: [Obesity, unspecified]Onset: 04-06-2023 54-05-8402UnxqlpiElhhk and delivery including normal (2 sources)Third trimester ; Translations: [Encounter for supervision of normal , unspecified, third trimester]23-57-3583WmgyyfyzSayucibkozq disorders (3 sources)Borderline personality ugdeduqu29-41-5730HhyxiuxZdbejkwk enteritis and ulcerative colitis (1 source)Ulcerative colitisOnset: 63-40-5189XwtphtzRheedqtq codes; unclassified (1 source)Pain, unspecified; Translations: [Pain, unspecified]Onset: 04-19-2024 EpisodicUnclassified (1 source)CONTACT W/AND (SUSP) EXPOS COVID-19; Translations: [CONTACT W/AND (SUSP) EXPOS COVID-19]Onset: 48-60-3376Nozefdjwrscj (14 sources)OB RemindersOnset: 671020-45-8001Smviyshfisoi (1 source)Myalgic encephalomyelitis/chronic fatigue syndrome; Translations: [Myalgic encephalomyelitis/chronic fatigue syndrome]Onset: 15-66-7602Jhqdlla tract infections (3 sources)Interstitial cystitis (chronic) without hematuria; Translations: [Chronic interstitial cystitis]Onset: 410126-97-7634Xkbwvhd Past or Other Problems Problem ClassificationProblemDateDocumented DateEpisodic/ChronicAppendicitis and other appendiceal conditions (1 source)Unspecified acute appendicitis; Translations: [UNSPECIFIED ACUTE APPENDICITIS]Onset: 71-93-8345AevndvtbPwpelylkdsmfoflx hemorrhage (3 sources)Melena; Translations: [Black feces]Onset: 247753-88-7889 EpisodicMood disorders (20 sources)Mood disordersOnset: 06-09-2022 Resolved: 843470-33-8465Tuvgmgzweztza gastroenteritis (3 sources)Noninfective gastroenteritis and colitis, unspecified; Translations: [Colitis]Onset: 088686-20-9280WuidmlgmRpcvj aftercare (1 source)Other detention (current) drug therapy; Translations: [OTH DYE EXPERT CURRENT DRUG THERAPY]Onset: 17-05-6967RradtbulXqmer and unspecified benign neoplasm (4 sources)Other benign neuroendocrine tumors; Translations: [OTHER BENIGN NEUROENDOCRINE TUMORS]Onset: 59-74-3784HaizhqjzAaevz and unspecified benign neoplasm (1 source)Benign carcinoid tumor of the appendix; Translations: [BENIGN CARCINOID TUMOR THE APPENDIX]Onset: 82-99-4887QghvnszfRrmnc and unspecified benign neoplasm (5 sources)Neuroendocrine neoplasm of appendix; Translations: [Other benign neuroendocrine tumors]Onset: 806687-04-3103BscwwaxgKnbev complications of (4 sources) dysrhythmia; Translations: [Maternal care for abnormalities of the heart rate or rhythm, unspecified trimester, not applicable or unspecified]Onset: 111847-27-1091VuunpveqDlboi complications of (4 sources)High risk ; Translations: [Supervision of other high risk pregnancies, second trimester]Onset: 633988-24-6297CizlhhwiXvvqc connective tissue disease (5 sources)Pain in right leg; Translations: [PAIN IN RIGHT LEG]Onset: 04-29-2022 EpisodicOther connective tissue disease (2 sources)Fibromyalgia; Translations: [Fibromyalgia]Onset: 23-05-5804Kdmgheuf Other gastrointestinal disorders (4 sources)Diarrhea, unspecified; Translations: [DIARRHEA UNSPECIFIED]Onset: 19-31-6392XenaytqaRmpqi non-traumatic joint disorders (2 sources)Pain in unspecified joint; Translations: [Pain in unspecified joint] Onset: 89-35-6983QnobnkhlEytci screening for suspected conditions (not mental disorders or infectious disease) (4 sources)Encounter for screening for malignant neoplasm of cervix; Translations: [ENC SCREENING MALIG NEOPLASM CERV]Onset: 47-94-3257Zqypnkfp Ovarian cyst (1 source)Unspecified ovarian cyst, left side; Translations: [UNSPECIFIED OVARIAN CYST LEFT SIDE]Onset: 00-99-1790SzmssbceIlceujpu codes; unclassified (1 source)Acquired absence of other specified parts of digestive tract; Translations: [ACQ ABSENCE OTH PART DIGESTV TRACT]Onset: 71-46-0094Erqizozk Unclassified (1 source)Low grade mucinous neoplasm of -31-5731Nnukleqeearv (1 source)Myalgic encephalomyelitis/chronic fatigue syndrome; Translations: [Myalgic encephalomyelitis/chronic fatigue syndrome]Onset: 92-74-4140Qbwaixc tract infections (1 source)Acute cystitis without hematuriaOnset: 12-22-2021 Resolved: 91-35-0508Pptvivtt Results Test NameValueInterpretationReference RangeFacilityUS PELVIS TRANSVAGINALon 59-61-9377GS PELVIS TRANSVAGINALFINDINGS: Uterus 8.3 x 5.4 x 6.5 cm Endometrium 12 mm Right ovary 3.4 x 2.3 x 2.7 cm Left ovary 2.1 x 1.7 x 2.1 cm Normal uterine orientation and morphology. Normal endometrium, no cystic changes. No myometrial mass. No pelvic fluid. No adnexal mass or shadowing. Several millimeter peripheral ovarian follicles. IMPRESSION: 1. No intrauterine mass 2. Normal follicular ovaries TRANSCRIBED BY: ELECTRONICALLY SIGNED BY: Areli GambinormalNot AvailableComment on above:Order Comment: US PELVIS-TRANSVAG IF INDICATED No LMP recorded.Urine Cultureon 01-16-2819Jmsthwvm identified Cx Nom (U) ORGANISM: Escherichia coli (O:ESCCOL) [place] Count >100,000 Aerobic ESTHER Charge (NMIC56) SUSCEPTIBILITY ORGANISM: O:ESCCOL ANTIBIOTIC INTERPRETATION ESTHER Amikacin S <16 Amoxacillin/K Clavulanate S <8 Ampicillin S <8 Ampicillin/Sulbactam S <4 Aztreonam S <4 Cefazolin S <2 Cefepime S <2 Ceftazidime S <1 Ceftazidime/Avibactam S <4 Ceftolozane/Tazobactam S <2 Ceftriaxone S <1 Cefuroxime S <4 Ciprofloxacin S <0.25 Ertapenem S <0.5 Gentamicin S <2 Levofloxacin S <0.5 Meropenem S <1 Meropenem/Vaborbactam S <2 Nitrofurantoin S <32 Piperacillin/Tazobactam S <8 Tetracycline S <4 Tigecycline S <2 Tobramycin S <2 Trimethoprim/Sulfamethoxazole S <0.5 S = SUSCEPTIBLE I = INTERMEDIATE R = RESISTANT BLANK = DATA NOT AVAILABLE, OR DRUG NOT ADVISABLE OR TESTED R* = RESISTANCE DUE TO EXTENDED SPECTRUM BETA-LACTAMASES ESBL = EXTENDED SPECTRUM BETA-LACTAMASE TFG = THYMIDINE-DEPENDENT STRAIN ALEXA = BETA-LACTAMASE POSITIVE IB = INDUCIBLE BETA-LACTAMASE. APPEARS IN PLACE OF 'S' WITH SPECIES KNOWN TO POSSESS INDUCIBLE BETA-LACTAMASES. POTENTIALLY THEY MAY BECOME RESISTANT TO ALL B-LACTAM DRUGS. PERFORMED BY: [facility] [address] [place] [address] PATHOLOGIST GENERAL LEDGER BOOKKEEPER ROSMERY BROWN M.D.[facility] Physician GroupComment on above: Performed By: #### CUU #### [place] [address] USAGastroenterology Office/Clinic Noteon 03-09-2025 Gastroenterology Office/Clinic NoteGastroenterology Office/Clinic Note Chief Complaint abd pain, nausea, [...] abdominal pain and nausea. EGD/Colon 04/2024 @ [facility]. Pt stated she would have them fax [...] Follow-up With When Contact Information Paulie DUPONT, Diego Umana [facility], [facility] In 2 months [address], [phone]- [phone] Additional Instructions: Problem List/Past Medical History Ongoing [...] 1995 Recorded Hib, unspecif (more content not included)...[facility] Comment on above:Result Comment: Electronically Signed By: Aurelia Carcamo MA\.br\Date and Time Signed: 03/08/25 14:35 EDT\.br\Electronically Co-Signed By: Diego Apodaca MD\.br\Date and Time Co-Signed: 03/09/25 12:26 EDT Ambulatory Visit Summaryon 73-88-5612Nmqpiznuqe Visit SummaryAmbulatory Visit Summary ZAINAB SWIFT :1995 Visit Date:03/08/2025 Ambulatory Visit Instructions Your Diagnosis Abdominal pain Nausea Diarrhea Abdominal bloating Your Care Team Attending Physician - Paulie DUPONT, Diego Umana Primary Care Physician - ERIN WHITESIDE CNP This Is Your Medications List colestipol [...] Following Appointments Follow Up with Paulie DUPONT, iDego Umana, JIAN, MED When: In 2 months Where: [address] [place] [address], [facility] [address] [phone] Medications What How Much When Instructions New colestipol (Colestid 1 g Tab) 2 Tablets By Mouth 2 times a day Refills: 3 with a full glass of water Pickup at [facility]/pharmacy #[id number] New rifaximin (rifaximin 550 mg oral tablet) 1 Tablets By Mouth 3 times a day Duration: 14 Days Pickup at [facility]/pharmacy #[id number] New simethicone (simethicone 180 mg oral capsule) 1 Capsules By Mouth 4 times a day as needed for Gas Refills: 3 Pickup at [facility]/pharmacy #[id number] Unchanged aripiprazole (Abilify 2 mg [...] 2 times a day Contact prescribing physician ifquestions or concerns Unchanged octreotide (octreotide 20 mg IM Inj) See instructions 20 mg IntraMuscular as needed Contact prescribing physician if questions or concerns Unchanged rimegepant (Nurtec ODT) See instructions as needed Contact prescribing physician if questions or concerns Pharmacy Information [facility]/pharmacy #[id number]: [address], [place] [phone] Allergies Flagyl (Nausea) gabapentin (Nausea, Diarrhea) Problems [...] signed up for this yet, please contact [employer] at [phone] to get signed up today. Language Information Language assistance services are available as needed. [facility] HospitalCT ABDOMEN/PELVIS WITH AND WITHOUT CONTRASTon 82-45-9433QW ABDOMEN/PELVIS WITH AND WITHOUT CONTRASTEXAM: CT ABDOMEN/PELVIS WITH AND WITHOUT CONTRAST COMPARISON: [...] error, please notify the sender immediately at [phone] and permanently delete the original report and destroy any copies or printouts.[facility] HospitalC AND ELECTRONIC DIFFon 18-23-1454Hkthbgilq (Bld) [#/Vol]0.05 10*3/uL0.00 - 0.15 K/[facility] HospitalBasophils/100 WBC (Bld)0.8 %[facility] HospitalDifferential cell count method Nom (Bld)Electronic DifferentialTriHealth McCullough-Hyde Memorial Hospital Eosinophils (Bld) [#/Vol]0.24 10*3/uL0.00 - 0.42 K/[facility] Eosinophils/100 WBC (Bld)3.6 %[facility] HospitalErythrocyte distribution width (RBC) [Ratio]12.3 %10.8 - 14.9 %[facility] HospitalHematocrit (Bld) [Volume fraction]40.8 %34.9 - 44.3 %[facility] HospitalHemoglobin (Bld) [Mass/Vol]13.4 g/dL11.4 - 15.2 g/dLTriHealth McCullough-Hyde Memorial HospitalImmature granulocytes (Bld) [#/Vol]K/uLNINF - 0.08 K/[facility] HospitalImmature granulocytes/100 WBC (Bld)0.3 %[facility] HospitalLymphocytes (Bld) [#/Vol]2.06 10*3/uL1.16 - 3.51 K/uLTriHealth McCullough-Hyde Memorial HospitalLymphocytes/100 WBC (Bld)31 %[facility] HospitalH (RBC) [Entitic mass]28.2 pg25.9 - 33.9 pg [facility] HospitalMCHC (RBC) [Mass/Vol]32.8 g/dL31.4 - 35.9 g/dLTriHealth McCullough-Hyde Memorial HospitalMCV (RBC) [Entitic vol]85.7 fL79.6 - 97.7 [facility] HospitalMonocytes (Bld) [#/Vol]0.46 10*3/uL0.22 - 0.87 K/uLOSJoint Township District Memorial HospitalMonocytes/100 WBC (Bld)6.9 %[facility] HospitalNeutrophils (Bld) [#/Vol]3.82 10*3/uL1.64 - 7.28 K/uLTriHealth McCullough-Hyde Memorial HospitalNucleated RBC/100 WBC (Bld) [Ratio]0 %NINMercy Health Clermont HospitalPlatelet mean volume (Bld) [Entitic vol]9.5 fL8.5 - 12.2 [facility] HospitalPlatelets (Bld) [#/Vol]337 10*3/uL150 - 393 K/[facility] HospitalRBC (Bld) [#/Vol]4.76 10*6/uLGood Samaritan Hospitalegmented neutrophils/100 WBC (Bld)57.4 %[facility] HospitalWBC (Bld) [#/Vol]6.65 10*3/uL3.99 - 11.19 K/uLTriHealth McCullough-Hyde Memorial HospitalOSU Wilson Memorial HospitalBasophils (Bld) [#/Vol]0.05 10*3/uLNormal 0.00-0.15[facility] Memorial HospitalComment on above:Performed By: #### ESR #### [facility] (DEFAULT) [address] [address]Wdxngpxkb/100 WBC (Bld)0.8 %[facility] HospitalComment on above:Performed By: #### ESR #### [facility] (DEFAULT) [address] [address]FCUS STATUSElectronic DifferentialNormalOhiMemorial Health System Marietta Memorial HospitalComment on above:Performed By: #### ESR #### [facility] (DEFAULT) [address] [address]Gmqoofvoslm (Bld) [#/Vol]0.24 10*3/uLNormal0.00-0.42[facility] HospitalComment on above:Performed By: #### ESR #### [facility] (DEFAULT) [address] [address]Ubineziodoc/100 WBC (Bld)3.6 %[facility] HospitalComment on above:Performed By: #### ESR #### [facility] (DEFAULT) [address] [place] [address] 77854Rbcdmxkbhb (Bld) [Volume fraction]40.8 %Rdxruk17.9-44.3[facility] HospitalComment on above:Performed By: #### ESR #### [facility] (DEFAULT) [address] [place] [address] 61674Schdwhsntw (Bld) [Mass/Vol]13.4 g/sFBqxvdb89.4-15.2[facility] HospitalComment on above:Performed By: #### ESR #### [facility] (DEFAULT) [address] [place] [address] 08324Ufjueics Grans %0.3 %NormalJoint Township District Memorial HospitalComment on above:Performed By: #### ESR #### [facility] (DEFAULT) [address] [place] [address] 80469Inmsbztf Grans Absolute<Normal<=0.08[facility] HospitalComment on above:Performed By: #### ESR #### [facility] (DEFAULT) [address] [place] [address] 31155Xozrtqeyubm (Bld) [#/Vol]2.06 10*3/uLNormal1.16-3.51[facility] HospitalComment on above:Performed By: #### ESR #### [facility] (DEFAULT) [address] [place] [address] 88105Iizqgcwldru/100 WBC (Bld)31.0 %NormalJoint Township District Memorial HospitalComment on above:Performed By: #### ESR #### [facility] (DEFAULT) [address] [address]OZC (RBC) [Entitic vol]85.7 pQKmzmyz63.6-97.7[facility] HospitalComment on above:Performed By: #### ESR #### [facility] (DEFAULT) [address] [place] [address] 02596Zufq Cell Hgb28.2 qvFybbav44.9-33.9[facility] HospitalComment on above:Performed By: #### ESR #### [facility] (DEFAULT) [address] [place] [address] 55650Pour Cell Hgb Conc32.8 g/pONhdspx90.4-35.9[facility] HospitalComment on above:Performed By: #### ESR #### [facility] (DEFAULT) [address] [place] [address] 31707Qkggnismb (Bld) [#/Vol]0.46 10*3/uLNormal0.22-0.87[facility] HospitalComment on above:Performed By: #### ESR #### [facility] (DEFAULT) [address] [place] [address] 44290Snbyqfgha/100 WBC (Bld)6.9 %NormalJoint Township District Memorial HospitalComment on above:Performed By: #### ESR #### [facility] (DEFAULT) [address] [place] [address] 32636Pthmsgdth RBC0.0 /100 WBCNormal<=0.2[facility] HospitalComment on above:Performed By: #### ESR #### [facility] (DEFAULT) [address] [place] [address] 85068Upqqhcdd mean volume (Bld) [Entitic vol]9.5 fLNormal8.5-12.2 [facility] HospitalComment on above:Performed By: #### ESR #### [facility] (DEFAULT) [address] [place] [address] 92180Lxeizpskw (Bld) [#/Vol]337 10*3/rYEhsntb735-533DdibJoint Township District Memorial HospitalComment on above:Performed By: #### ESR #### [facility] (DEFAULT) [address] [place] [address] 32040GZU (Bld) [#/Vol]4.76 10*6/uLNormal3.91-5.04[facility] HospitalComment on above:Performed By: #### ESR #### [facility] (DEFAULT) [address] [place] [address] 76370LLG Lbreokqbjyrl22.3 %Wkhcff68.8-14.9[facility] HospitalComment on above:Performed By: #### ESR #### [facility] (DEFAULT) [address] [place] [address] 73859Yafs + Bands Auto57.4 %NormalOhMemorial Health System Selby General HospitalComment on above:Performed By: #### ESR #### [facility] (DEFAULT) [address] [place] [address] 96896Xrxg + Bands,Absolute Auto3.82 K/uLNormal1.64-7.28[facility] HospitalComment on above:Performed By: #### ESR #### [facility] (DEFAULT) [address] [place] [address] 62047QBU (Bld) [#/Vol]6.65 10*3/uLNormal3.99-11.19[facility] HospitalComment on above:Performed By: #### ESR #### [facility] (DEFAULT) [address] [place] [address] 08513HOZADIYURJWL Aon 31-18-4712Blupckomettb A29 ng/mLNormal<93[facility] HospitalComment on above:Result Comment: ADDITIONAL INFORMATION The testing method is a homogeneous time-resolved immunofluorescent assay manufactured by [employer] and performed on the [employer] KrCompringor Compact Plus. Values obtained with different assay [...] examination and other findings. Test Performed by: [facility] [address] [place] [address] Mortgage Funder: Jami Sher Ph.D.; CLIA# [id number] By: #### YCHGRA #### [facility] (DEFAULT) [address] [place], [place] [address]COMPREHENSIVE METABOLIC PANELon 48-19-8752Zpuijvt [Mass/Vol] 4.8 g/dL3.5 - 5.0 g/dLOSJoint Township District Memorial HospitalALP [Catalytic activity/Vol]52 U/L32 - 126 U/[facility] HospitalALT [Catalytic activity/Vol]13 U/L9 - 48 U/[facility] HospitalAnion gap [Moles/Vol]12 mmol/L7 - 17 mmol/[facility] HospitalAST [Catalytic activity/Vol]13 U/L10 - 39 U/[facility] HospitalBilirubin [Mass/Vol]0.5 mg/dLNINF - 1.5 mg/dLTriHealth McCullough-Hyde Memorial HospitalCalcium [Mass/Vol]9.6 mg/dL8.6 - 10.5 mg/dLTriHealth McCull[facility] Hospital Chloride [Moles/Vol]104 mmol/L98 - 108 mmol/[facility] HospitalCO2 [Moles/Vol]27 mmol/L21 - 31 mmol/[facility] HospitalCreatinine [Mass/Vol] 0.72 mg/dL0.50 - 1.20 mg/dLTriHealth McCullough-Hyde Memorial HospitaleGFR, CKD-EPI, Female- PINF [facility] HospitalComment on above:Reported eGFR is based on the CKD-EPI 2020 equation using creatinine, age, and sex.Glucose [Mass/Vol]90 mg/dL70 - 179 mg/dLTriHealth McCullough-Hyde Memorial HospitalOsmolality Calc [Osmolality]289[facility] HospitalPotassium [Moles/Vol]4.1 mmol/L3.5 - 5.0 mmol/[facility] Protein [Mass/Vol]7.5 g/dL6.4 - 8.3 g/dLGood Samaritan Hospitalodium [Moles/Vol]139 mmol/L135 - 145 mmol/[facility] HospitalUrea nitrogen [Mass/Vol]10 mg/dL7 - 25 mg/dLTriHealth McCullough-Hyde Memorial HospitalUrea nitrogen/Creatinine [Mass ratio]14 mg/mgTriHealth McCullough-Hyde Memorial HospitalAlbumin [Mass/Vol]4.8 g/dLNormal 3.5-5.0[facility] HospitalComment on above:Performed By: #### ESR #### [facility] (DEFAULT) [address] [address]XIJ [Catalytic activity/Vol]52 U/NVjlfak12-653DfqjJoint Township District Memorial HospitalComment on above:Performed By: #### ESR #### [facility] (DEFAULT) [address] [place] [address] 06016LOY [Catalytic activity/Vol]13 U/LNormal9-48[facility] HospitalComment on above:Performed By: #### ESR #### [facility] (DEFAULT) [address] [place] [address] 22553Oedye gap [Moles/Vol]12 mmol/LNormal7-17[facility] HospitalComment on above:Performed By: #### ESR #### [facility] (DEFAULT) [address] [place] [address] 13100HLO [Catalytic activity/Vol]13 U/OElwmjq78-84CvrqJoint Township District Memorial HospitalComment on above:Performed By: #### ESR #### [facility] (DEFAULT) [address] [address]Qxwmawzcz [Mass/Vol]0.5 mg/dLNormal<1.5[facility] HospitalComment on above:Performed By: #### ESR #### [facility] (DEFAULT) [address] [place] [address] 64474Vgleoaq [Mass/Vol]9.6 mg/dLNormal8.6-10.5[facility] HospitalComment on above:Performed By: #### ESR #### [facility] (DEFAULT) [address] [place] [address] 99402Jwvxszxy [Moles/Vol]104 mmol/ZOyldcy21-312FsltJoint Township District Memorial HospitalComment on above:Performed By: #### ESR #### [facility] (DEFAULT) [address] [place] [address] 16513BX8 [Moles/Vol]27 mmol/JZgmgmo33-28GuutJoint Township District Memorial HospitalComment on above:Performed By: #### ESR #### [facility] (DEFAULT) [address] [place] [address] 95956Qnvebwzwvi [Mass/Vol]0.72 mg/dLNormal0.50-1.20[facility] HospitalComment on above:Performed By: #### ESR #### [facility] (DEFAULT) [address] [place] [address] 68465dMRJ, CKD-EPI, Female>Normal>=60[facility] HospitalComment on above:Result Comment: Reported eGFR is based on the CKD-EPI 2020 equation using creatinine, age, and sex.Performed By: #### ESR #### [facility] (DEFAULT) [address] [place] [address] 32433Oblosef [Mass/Vol]90 mg/dLNormalNonfastin-179 mg/dL; Fastin-99OhMemorial Health System Selby General HospitalComment on above: Performed By: #### ESR #### [facility] (DEFAULT) [address] [place] [address] 18480Vbtyzusuzk [Osmolality]289 mosm/mtXxyqsi730-393CcgxJoint Township District Memorial HospitalComment on above:Performed By: #### ESR #### [facility] (DEFAULT) [address] [place] [address] 82875Nilkjukzv [Moles/Vol]4.1 mmol/LNormal3.5-5.0[facility] HospitalComment on above:Performed By: #### ESR #### [facility] (DEFAULT) [address] [address]Itjrosi [Mass/Vol]7.5 g/dLNormal6.4-8.3[facility] HospitalComment on above:Performed By: #### ESR #### [facility] (DEFAULT) [address] [place] [address] 02062Vfcqbv [Moles/Vol]139 mmol/MIkogus402-592PedwJoint Township District Memorial HospitalComment on above:Performed By: #### ESR #### [facility] (DEFAULT) [address] [address]Pyjz nitrogen [Mass/Vol]10 mg/dLNormal7-25[facility] HospitalComment on above:Performed By: #### ESR #### [facility] (DEFAULT) [address] [place] [address] 38652Ttqi nitrogen/Creatinine [Mass ratio]14 mg/mgNormalODiley Ridge Medical CenterComment on above:Performed By: #### ESR #### [facility] (DEFAULT) [address] [address]MHQOKVL DEHYDROGENASEon 36-00-4641Vqzwruwqwubfjb and review of laboratory resultsNormSumma HealthLD Lactate to pyruvate reaction [Catalytic activity/Vol]113 U/L100 - 190 U/LOSU [facility] HospitalLD Vkrme970 U/HCkrqcy095-123EnefJoint Township District Memorial HospitalComment on above:Performed By: #### YALDO #### [facility] (DEFAULT) [address] [address]Ui Panel Informationon 85-60-2158LGZJoint Township District Memorial Hospital ALDOLASEon 44-90-0254Cpdvbgeh6.9 U/LNormal<7.7[facility] HospitalComment on above:Result Comment: ADDITIONAL INFORMATION This test has been modified from the wood getter's instructions. Its performance characteristics were determined by [facility] in a manner consistent with CLIA requirements. This test has not been cleared or approved by the U.S. Food and Drug Administration. Test Performed by: [place] [address] Mortgage Funder: Jami Sher Ph.D.; CLIA# [id number] By: #### STEPHON #### [facility] (DEFAULT) [address] [place] [address] 20844D REACTIVE PROTEINon 97-21-0962BRG High sensitivity method [Mass/Vol]0.6 mg/LNINF - 10.00 mg/LOSU [facility] HospitalCRP [Mass/Vol]0.60 mg/LNormal<10.00[facility] HospitalComment on above: Performed By: #### STEPHON #### [facility] (DEFAULT) [address] [place] [address] 19448M0,C4on 46-72-8940Eexvgdgphl C3 [Mass/Vol]155 mg/dL87 - 200 mg/dLTriHealth McCullough-Hyde Memorial HospitalComplement C4 [Mass/Vol]38 mg/dL18 - 52 mg/dLOSJoint Township District Memorial HospitalC3155 mg/oPNdpkwz70-762PlrqJoint Township District Memorial HospitalComment on above:Performed By: #### STEPHON #### [facility] (DEFAULT) [address] [place] [address] 03147S201 mg/jWQgvlya93-96SdghJoint Township District Memorial HospitalComment on above:Performed By: #### STEPHON #### [facility] (DEFAULT) [address] [place] [address] 43486MRS AND ELECTRONIC DIFFon 70-89-1516Ywbkjjpeg (Bld) [#/Vol] 0.06 10*3/uLNormal0.00-0.15[facility] HospitalComment on above:Performed By: #### ESTEBANO #### [facility] (DEFAULT) [address] [place] [address] 24839Jpxfphjnw/100 WBC (Bld)0.7 %[facility] HospitalComment on above:Performed By: #### ESTEBANO #### [facility] (DEFAULT) [address] [place] [address] 29388IBPI STATUSElectronic DifferentialNormalODiley Ridge Medical CenterComment on above:Performed By: #### ESTEBANO #### [facility] (DEFAULT) [address] [place] [address] 82853Uwjhqtbjscj (Bld) [#/Vol]0.30 10*3/uLNormal0.00-0.42[facility] HospitalComment on above:Performed By: #### ESTEBANO #### [facility] (DEFAULT) [address] [place] [address] 16642Flzgjwmtiin/100 WBC (Bld)3.7 %[facility] HospitalComment on above:Performed By: #### ESTEBANO #### [facility] (DEFAULT) [address] [place] [address] 21815Idlycmijix (Bld) [Volume fraction]40.9 %Vjebgg19.9-44.3[facility] HospitalComment on above:Performed By: #### ESTEBANO #### [facility] (DEFAULT) [address] [place] [address] 15818Oroqveoynv (Bld) [Mass/Vol]13.1 g/qXFvsayc95.4-15.2[facility] HospitalComment on above:Performed By: #### ESTEBANO #### [facility] (DEFAULT) [address] [place] [address] 24093Ksjrtxiw Grans %0.2 %[facility] HospitalComment on above:Performed By: #### ESTEBANO #### [facility] (DEFAULT) [address] [place] [address] 48305Izgkmsgl Grans Absolute<Normal<=0.08[facility] HospitalComment on above:Performed By: #### ESTEBANO #### [facility] (DEFAULT) [address] [place] [address] 15706Beozdplgifp (Bld) [#/Vol]2.19 10*3/uLNormal1.16-3.51[facility] HospitalComment on above:Performed By: #### ESTEBANO #### [facility] (DEFAULT) [address] [place] [address] 43333Xcfqrfshbng/100 WBC (Bld)27.1 %NormalJoint Township District Memorial HospitalComment on above:Performed By: #### ESTEBANO #### [facility] (DEFAULT) [address] [address]JBD (RBC) [Entitic vol]86.3 nRSosgrq41.6-97.7[facility] HospitalComment on above:Performed By: #### ESTEBANO #### [facility] (DEFAULT) [address] [address]Nywz Cell Hgb27.6 paMvclsn47.9-33.9[facility] HospitalComment on above:Performed By: #### ESTEBANO #### [facility] (DEFAULT) [address] [place] [address] 12972Oonm Cell Hgb Conc32.0 g/sMDldfzd57.4-35.9[facility] HospitalComment on above:Performed By: #### AUGUSTINLDO #### [facility] (DEFAULT) [address] [address]Fvzillumq (Bld) [#/Vol]0.53 10*3/uLNormal0.22-0.87[facility] HospitalComment on above:Performed By: #### YALDO #### [facility] (DEFAULT) [address] [place] [address] 14592Iabrybogv/100 WBC (Bld)6.6 %NormalJoint Township District Memorial HospitalComment on above:Performed By: #### STEPHON #### [facility] (DEFAULT) [address] [place] [address] 29292Neheiiknm RBC0.0 /100 WBCNormal<=0.2[facility] HospitalComment on above:Performed By: #### ESTEBANO #### [facility] (DEFAULT) [address] [place] [address] 31601Dwwanvjh mean volume (Bld) [Entitic vol]10.2 fLNormal8.5-12.2 [facility] HospitalComment on above:Performed By: #### ESTEBANO #### [facility] (DEFAULT) [address] [place] [address] 67394Eobpoucie (Bld) [#/Vol]354 10*3/sUMunnmo180-552FyxrJoint Township District Memorial HospitalComment on above:Performed By: #### ESTEBANO #### [facility] (DEFAULT) [address] [place] [address] 61481ALB (Bld) [#/Vol]4.74 10*6/uLNormal3.91-5.04[facility] HospitalComment on above:Performed By: #### ESTEBANO #### [facility] (DEFAULT) [address] [place] [address] 08683RDY Jierlrywjwot29.6 %Qebjcu33.8-14.9[facility] HospitalComment on above:Performed By: #### ESTEBANO #### [facility] (DEFAULT) [address] [place] [address] 03328Caex + Bands Auto61.7 %NormalJoint Township District Memorial HospitalComment on above:Performed By: #### ESTEBANO #### [facility] (DEFAULT) [address] [place] [address] 01072Xmmv + Bands,Absolute Auto4.98 K/uLNormal1.64-7.28[facility] HospitalComment on above:Performed By: #### STEPHON #### [facility] (DEFAULT) [address] [place] [address] 11020QFN (Bld) [#/Vol]8.08 10*3/uLNormal3.99-11.19[facility] HospitalComment on above:Performed By: #### STEPHON #### [facility] (DEFAULT) [address] [place] [address] 04363BDuo 36-63-1757LS [Catalytic activity/Vol]46 U/L30 - 184 U/L [facility] HospitalInterpretation and review of laboratory resultsNormal [facility] HospitalCK [Catalytic activity/Vol]46 U/MAgzlcg91-307LnbxJoint Township District Memorial HospitalComment on above:Performed By: #### STEPHON #### [facility] (DEFAULT) [address] [place] [address] 45413PKTHZVYILGFNQ METABOLIC PANELon 07-48-2568Dbceacx [Mass/Vol] 4.9 g/dL3.5 - 5.0 g/dLOSJoint Township District Memorial HospitalALP [Catalytic activity/Vol]50 U/L32 - 126 U/[facility]ALT [Catalytic activity/Vol]13 U/L9 - 48 U/[facility] HospitalAnion gap [Moles/Vol]13 mmol/L7 - 17 mmol/[facility] HospitalAST [Catalytic activity/Vol]12 U/L10 - 39 U/[facility] HospitalBilirubin [Mass/Vol]0.3 mg/dLNINF - 1.5 mg/dLOSJoint Township District Memorial HospitalCalcium [Mass/Vol]10 mg/dL8.6 - 10.5 mg/dLOSJoint Township District Memorial Hospital Chloride [Moles/Vol]103 mmol/L98 - 108 mmol/[facility] HospitalCO2 [Moles/Vol]29 mmol/L21 - 31 mmol/[facility] HospitalCreatinine [Mass/Vol] 0.58 mg/dL0.50 - 1.20 mg/dLTriHealth McCullough-Hyde Memorial HospitaleGFR, CKD-EPI, Female- PINF [facility] HospitalComment on above:Reported eGFR is based on the CKD-EPI 2020 equation using creatinine, age, and sex.Glucose [Mass/Vol]77 mg/dL70 - 179 mg/dLOSJoint Township District Memorial HospitalOsmolality Calc [Osmolality]292[facility] HospitalPotassium [Moles/Vol]4.8 mmol/L3.5 - 5.0 mmol/[facility]PITALU [facility] Protein [Mass/Vol]7.6 g/dL6.4 - 8.3 g/dLOSAdena Fayette Medical Centerodium [Moles/Vol]140 mmol/L135 - 145 mmol/[facility] HospitalUrea nitrogen [Mass/Vol]10 mg/dL7 - 25 mg/dLTriHealth McCullough-Hyde Memorial HospitalUrea nitrogen/Creatinine [Mass ratio]17 mg/mgOSJoint Township District Memorial HospitalAlbumin [Mass/Vol]4.9 g/dLNormal 3.5-5.0[facility] HospitalComment on above:Performed By: #### YABIBO #### [facility] (DEFAULT) [address] [place] [address] 13051RPD [Catalytic activity/Vol]50 U/QPmjycr96-202GczhJoint Township District Memorial HospitalComment on above:Performed By: #### YALDO #### [facility] (DEFAULT) [address] [place] [address] 26800ZBV [Catalytic activity/Vol]13 U/LNormal9-48[facility] HospitalComment on above:Performed By: #### YALDO #### [facility] (DEFAULT) [address] [place] [address] 40916Smbkw gap [Moles/Vol]13 mmol/LNormal7-17[facility] HospitalComment on above:Performed By: #### YALDO #### [facility] (DEFAULT) [address] [place] [address] 29639XWH [Catalytic activity/Vol]12 U/DKhonjl52-39SuwyJoint Township District Memorial HospitalComment on above:Performed By: #### STEPHON #### [facility] (DEFAULT) [address] [place] [address] 42919Bnqyobivk [Mass/Vol]0.3 mg/dLNormal<1.5[facility] HospitalComment on above:Performed By: #### ESTEBANO #### [facility] (DEFAULT) [address] [place] [address] 62041Sclqeew [Mass/Vol]10.0 mg/dLNormal8.6-10.5[facility] HospitalComment on above:Performed By: #### ESTEBANO #### [facility] (DEFAULT) [address] [place] [address] 74232Gsjlspnh [Moles/Vol]103 mmol/NHgvras11-562AzacJoint Township District Memorial HospitalComment on above:Performed By: #### ESTEBANO #### [facility] (DEFAULT) [address] [place] [address] 59369EE1 [Moles/Vol]29 mmol/BYhdvdh21-93SuspJoint Township District Memorial HospitalComment on above:Performed By: #### ESTEBANO #### [facility] (DEFAULT) [address] [place] [address] 20680Wmnmvdiciz [Mass/Vol]0.58 mg/dLNormal0.50-1.20[facility] HospitalComment on above:Performed By: #### ESTEBANO #### [facility] (DEFAULT) [address] [place] [address] 99577vVYV, CKD-EPI, Female>Normal>=60[facility] HospitalComment on above:Result Comment: Reported eGFR is based on the CKD-EPI 2020 equation using creatinine, age, and sex.Performed By: #### ESTEBANO #### [facility] (DEFAULT) [address] [place] [address] 78691Utppquc [Mass/Vol]77 mg/dLNormalNonfastin-179 mg/dL; Fastin-99[facility] HospitalComment on above: Performed By: #### STEPHON #### [facility] (DEFAULT) [address] [place] [address] 25031Ugjnotswzc [Osmolality]292 mosm/ppEicoqj634-844JnjvJoint Township District Memorial HospitalComment on above:Performed By: #### STEPHON #### [facility] (DEFAULT) [address] [place] [address] 33468Gkxnwzrmj [Moles/Vol]4.8 mmol/LNormal3.5-5.0[facility] HospitalComment on above:Performed By: #### ESTEBANO #### [facility] (DEFAULT) [address] [place] [address] 78608Oyfejkd [Mass/Vol]7.6 g/dLNormal6.4-8.3[facility] Memorial HospitalComment on above:Performed By: #### ESTEBANO #### [facility] (DEFAULT) [address] [place] [address] 59250Fphisb [Moles/Vol]140 mmol/PNltijm492-905BstnJoint Township District Memorial HospitalComment on above:Performed By: #### ESTEBANO #### [facility] (DEFAULT) [address] [place] [address] 03221Imuh nitrogen [Mass/Vol]10 mg/dLNormal7-25[facility] HospitalComment on above:Performed By: #### ESTEBANO #### [facility] (DEFAULT) [address] [place] [address] 51323Vdcd nitrogen/Creatinine [Mass ratio]17 mg/mgNormalOhiMemorial Health System Marietta Memorial HospitalComment on above:Performed By: #### ESTEBANO #### [facility] (DEFAULT) [address] [place] [address] 65339MJYKFR CITRULLINATE PEPTIDE ABOrdered By: Anna Hwang on 45-44-6319Irodrv citrullinated peptide Ab IA Qn (S)U/mLNINF - 5.00 U/mLOSU [facility] Memorial HospitalInterpretation and review of laboratory resultsNormSumma HealthOSJoint Township District Memorial HospitalCYCLIC CITRULLINATE PEPTIDE ABon 71-69-3005Kdwdtw Citrullinated Peptide Ab<0.54Normal<5.00[facility] HospitalComment on above:Performed By: #### YCCP #### [facility] (DEFAULT) [address] [place] [address] 24611Gb Panel Informationon 10-12-9568Bazromhovatnkc and review of laboratory resultsNormSumma HealthOSU Wilson Memorial HospitalOSJoint Township District Memorial HospitalRHEUMATOID FACTOROrdered By: Georgina Ferguson on 12-21-2024 Interpretation and review of laboratory resultsNoKettering Health [facility] Rheumatoid factor QnNINFOSU [facility] RHEUMATOID FACTORon 28-62-2148Innwnifrwu Factor<10Normal<=14[facility] HospitalComment on above:Performed By: #### YALDO #### [facility] (DEFAULT) [address] [place] [address] 27184FDBCLKJIRCEGH RATE, AUTOMATEDon 41-30-7492LDU (Bld) [Velocity] 10 mm/hNINFU [facility] HospitalInterpretation and review of laboratory resultsNoKettering Health Greene MemorialOSJoint Township District Memorial HospitalESR Racfeykhxb10 mm/hrNormal<20[facility] HospitalComment on above: Performed By: #### ESR #### [facility] (DEFAULT) [address] [place], [place] [address]SRGUWIERQG REFLEX TO CULTURE PERFORMABLEon 12-21-2024 Appearance (U)ClearNormalClearJoint Township District Memorial HospitalComment on above:Performed By: #### [id number] #### [facility] (DEFAULT) [address] [place], [place] [address]QbbtpsnlBUOZBJJjhwzmYRVVQPIxyjJoint Township District Memorial HospitalComment on above:Performed By: #### [id number] #### [facility] (DEFAULT) [address] [place] [address] 02694Scfta UrineNegativeNormalNegativeJoint Township District Memorial HospitalComment on above:Performed By: #### [id number] #### [facility] (DEFAULT) [address] [place] [address] 91535Gnqyb (U)YellowNormalYellowJoint Township District Memorial HospitalComment on above:Performed By: #### [id number] #### [facility] (DEFAULT) [address] [place] [address] 71162Ysssdyq Ql (U)NegativeNormalNegativeJoint Township District Memorial HospitalComment on above:Performed By: #### [id number] #### [facility] (DEFAULT) [address] [place] [address] 09070Hobelam Ql (U)NegativeNormalNegOhio State East HospitalComment on above:Performed By: #### [id number] #### [facility] (DEFAULT) [address] [place] [address] 83609Hgctvzscf esterase Test strip Ql (U)NegativeNormalNegOhio State East HospitalComment on above:Performed By: #### [id number] #### [facility] (DEFAULT) [address] [place] [address] 86232Natxpetn UrineNegativeNormalNegativeJoint Township District Memorial HospitalComment on above:Performed By: #### [id number] #### [facility] (DEFAULT) [address] [place] [address] 95611bL (U)5.0 [pH]Normal5.0-7.0[facility] HospitalComment on above:Performed By: #### [id number] #### [facility] (DEFAULT) [address] [place] [address] 31452[place] UrineNegativeNormalNegOhio State East HospitalComment on above:Performed By: #### [id number] #### [facility] (DEFAULT) [address] [place] [address] 27938RPS Yorqx1-9Hjypil2-3JohyJoint Township District Memorial HospitalComment on above:Performed By: #### [id number] #### [facility] (DEFAULT) [address] [place] [address] 09670Ululfcbc [place] Urine1.535Rllrts5.001-1.035[facility] Memorial HospitalComment on above:Performed By: #### [id number] #### [facility] (DEFAULT) [address] [place] [address] 37966Btgluhyf/Epithelial Cells, Urine3-5/hpf = 1+Normal0-2/hpf, 3- 5/hpf = 1+[facility] HospitalComment on above:Performed By: #### [id number] #### [facility] (DEFAULT) [address] [place] [address] 80574Ftnguqmuvlon Urine0.2 E.U./dLNormal0.2 E.U/dL, 1.0 E.U/dLJoint Township District Memorial HospitalComment on above:Performed By: #### [id number] #### [facility] (DEFAULT) [address] [place] [address] 48638AOJ Urine0 - 0Jhlnsd0 - 5[facility] HospitalComment on above:Performed By: #### [id number] #### [facility] (DEFAULT) [address] [place] [address] 23741IUYZY PROTEIN/CREA RATIO, RANDOMon 13-16-5312Cnugvsbwzf (24H U) [Mass/Vol]134.51 mg/dLOSU [facility] Memorial HospitalProtein Unsp time (U) [Mass/Vol]6 mg/dLOSU [facility] Memorial HospitalProtein/Creatinine (U) [Mass ratio] 0.045 mg/mgOSU [facility] Memorial HospitalOSU [facility] Memorial HospitalCreatinine (U) [Mass/Vol]134.51 mg/dLNoalOhiMemorial Health System Marietta Memorial HospitalComment on above:Performed By: #### ESR #### [facility] (DEFAULT) [address] [place] [address] 69210Nrul/Creat Ratio0.045 mg/mgMiami Valley HospitalComment on above:Performed By: #### ESR #### [facility] (DEFAULT) [address] [place], [place] [address]Mrtbady Ql (U)6 mg/dLMiami Valley HospitalComment on above:Performed By: #### ESR #### [facility] (DEFAULT) [address] [place], [place] [address]Av Panel Informationon 65-97-1147XTUHSERDAOQXFR EPIDERMIDIS, HAEMOLYTICUS, LUGDUNENSIS, SAPROPHYTICUS (MQCIR9BVQT HealthcareSTAPHYLOCOCCUS EPIDERMIDIS, HAEMOLYTICUS, LUGDUNENSIS, SAPROPHYTICUS (URINANot detectedNOMS HealthcareURINARY TRACT INFECTION (HTRX)on 15-54-1459HYACIYLUCOKBP FKMWTGXN2MUTU HealthcareACINETOBACTER BAUMANIINot detectedNOMS HealthcareCANDIDA ALBICANS, PARAPSILOSIS, RFTRZTDVXH2DEHO HealthcareCANDIDA ALBICANS, PARAPSILOSIS, TROPICALISNot detectedNOMS HealthcareCANDIDA QLUTEHBA3KGEI HealthcareCANDIDA GLABRATANot detectedNOMS HealthcareCANDIDA NFMZBH4CDEL HealthcareCANDIDA KRUSEI Not detectedNOMS HealthcareCITROBACTER VRLJZZBV5GCJV HealthcareCITROBACTER FREUNDIINot detectedNOMS HealthcareENTEROBACTER AEROGENES, WZPNRMK5TXJY HealthcareENTEROBACTER AEROGENES, CLOACAENot detectedNOMS HealthcareENTEROCOCCUS FAECALIS, RHONIDO4AMPC HealthcareENTEROCOCCUS FAECALIS, FAECIUMNot detectedNOMS HealthcareESCHERICHIA XAFJ6PAMX HealthcareESCHERICHIA COLINot detectedNOMS HealthcareKLEBSIELLA PNEUMONIAE, TDJIFXL4WEOI HealthcareKLEBSIELLA PNEUMONIAE, OXYTOCANot detectedNOMS HealthcareMORGANELLA BBFXUKZG8OFTP HealthcareMORGANELLA MORGANIINot detectedNOMS HealthcarePROTEUS MIRABILIS, MKEPLFDM0RMGG Healthcare PROTEUS MIRABILIS, VULGARISNot detectedNOMS HealthcarePSEUDOMONAS AERUGINOSA0 NOMS HealthcarePSEUDOMONAS AERUGINOSANot detectedNOMS HealthcareSERRATIA QVSETXJGIX7MIJO HealthcareSERRATIA MARCESCENSNot detectedNOMS Healthcare STAPHYLOCOCCUS ZYPQHR1FUAK HealthcareSTAPHYLOCOCCUS AUREUSNot detectedNOMS HealthcareSTREPTOCOCCUS AGALACTIAE (GROUP B STREP)0NOMS HealthcareSTREPTOCOCCUS AGALACTIAE (GROUP B STREP)Not detectedNOMS HealthcareSTREPTOCOCCUS PYOGENES (GROUP A STREP)0NOMS HealthcareSTREPTOCOCCUS PYOGENES (GROUP A STREP)Not detectedNOMS HealthcareNOMS HealthcareUrine Cultureon 37-44-8490Jnrqxapi identified Cx Nom (U)>100,000 colonies/ml mixed bacterial skin contaminants 2 Days PERFORMED BY: [place] [address] PATHOLOGIST GENERAL LEDGER BOOKKEEPER SULEMA CARLIN M.D.NormalAdventhealth East Orlando Physician GroupComment on above: Performed By: #### CUU #### [place] [address] USACT ABDOMEN/PELVIS WITH AND WITHOUT CONTRASTon 31-69-6542XS ABDOMEN/PELVIS WITH AND WITHOUT CONTRASTEXAM: CT ABDOMEN/PELVIS WITH AND WITHOUT CONTRAST COMPARISON: [...] error, please notify the sender immediately at [phone] and permanently delete the original report and destroy any copies or printouts.[facility] Valley HospitalCBC AND ELECTRONIC DIFFon 03-85-2460Dyldiyvde (Bld) [#/Vol]0.07 10*3/uL0.00 - 0.15 K/uLOSU [facility] HospitalBasophils/100 WBC (Bld)0.8 %OSJoint Township District Memorial HospitalDifferential cell count method Nom (Bld)Electronic DifferentialOSU [facility] Hospital Eosinophils (Bld) [#/Vol]0.14 10*3/uL0.00 - 0.42 K/uLTriHealth McCullough-Hyde Memorial Hospital Eosinophils/100 WBC (Bld)1.7 %[facility] HospitalErythrocyte distribution width (RBC) [Ratio]12.6 %10.8 - 14.9 %OSJoint Township District Memorial HospitalHematocrit (Bld) [Volume fraction]41.5 %34.9 - 44.3 %[facility] Memorial HospitalHemoglobin (Bld) [Mass/Vol]13.7 g/dL11.4 - 15.2 g/dLOSJoint Township District Memorial HospitalImmature granulocytes (Bld) [#/Vol]K/uLNINF - 0.08 K/uLOSJoint Township District Memorial HospitalImmature granulocytes/100 WBC (Bld)0.2 %OSJoint Township District Memorial HospitalInterpretation and review of laboratory resultsAbnormalOSU [facility] Memorial HospitalLymphocytes (Bld) [#/Vol]2.59 10*3/uL1.16 - 3.51 K/uLOSU [facility] HospitalLymphocytes/100 WBC (Bld)31 %OSJoint Township District Memorial HospitalMCH (RBC) [Entitic mass]28 pg25.9 - 33.9 pgOSU Wilson Memorial HospitalMCHC (RBC) [Mass/Vol]33 g/dL31.4 - 35.9 g/dLTriHealth McCullough-Hyde Memorial HospitalMCV (RBC) [Entitic vol]84.7 fL79.6 - 97.7 [facility] HospitalMonocytes (Bld) [#/Vol]0.6 10*3/uL0.22 - 0.87 K/[facility] HospitalMonocytes/100 WBC (Bld)7.2 %[facility] Memorial HospitalNeutrophils (Bld) [#/Vol]4.93 10*3/uL1.64 - 7.28 K/[facility] HospitalNucleated RBC/100 WBC (Bld) [Ratio]0 %[facility] Hospital ToledoPlatelet mean volume (Bld) [Entitic vol]9.4 fL8.5 - 12.2 German HospitalPlatelets (Bld) [#/Vol] 395 10*3/uZZusj424 - 393 K/[facility] HospitalRBC (Bld) [#/Vol]4.9 10*6/uLGood Samaritan Hospitalegmented neutrophils/100 WBC (Bld)59.1 %[facility] Memorial HospitalWBC (Bld) [#/Vol]8.35 10*3/uL3.99 - 11.19 K/[facility] Children Northern CaliforniaBasophils (Bld) [#/Vol]0.07 10*3/uLNormal 0.00-0.15[facility] HospitalComment on above:Performed By: #### [id number] #### [facility] (DEFAULT) [address] [address]Swiryjmcv/100 WBC (Bld)0.8 %NormalJoint Township District Memorial HospitalComment on above:Performed By: #### [id number] #### [facility] (DEFAULT) [address] [place], [place] [address]AQZK STATUSElectronic DifferentialNormalODiley Ridge Medical CenterComment on above:Performed By: #### [id number] #### [facility] (DEFAULT) [address] [place] [address] 57664Gmmjmdxksfv (Bld) [#/Vol]0.14 10*3/uLNormal0.00-0.42[facility] HospitalComment on above:Performed By: #### [id number] #### [facility] (DEFAULT) [address] [place] [address] 85174Zqynyljcvhb/100 WBC (Bld)1.7 %NormalJoint Township District Memorial HospitalComment on above:Performed By: #### [id number] #### [facility] (DEFAULT) [address] [place] [address] 22815Hxuwgiypgj (Bld) [Volume fraction]41.5 %Yxmeoz37.9-44.3[facility] HospitalComment on above:Performed By: #### [id number] #### [facility] (DEFAULT) [address] [place] [address] 39955Lxejgdaxfo (Bld) [Mass/Vol]13.7 g/kZVroesz98.4-15.2[facility] HospitalComment on above:Performed By: #### [id number] #### [facility] (DEFAULT) [address] [place] [address] 99175Qoglwhix Grans %0.2 %[facility] HospitalComment on above:Performed By: #### [id number] #### [facility] (DEFAULT) [address] [place] [address] 24385Faxotupo Grans Absolute<Normal<=0.08[facility] HospitalComment on above:Performed By: #### [id number] #### [facility] (DEFAULT) [address] [place] [address] 71744Uwrkvpmqjox (Bld) [#/Vol]2.59 10*3/uLNormal1.16-3.51[facility] HospitalComment on above:Performed By: #### [id number] #### [facility] (DEFAULT) [address] [place] [address] 18958Jsgeoqkmvre/100 WBC (Bld)31.0 %[facility] HospitalComment on above:Performed By: #### [id number] #### [facility] (DEFAULT) [address] [place] [address] 24896LKB (RBC) [Entitic vol]84.7 oUIegjzh73.6-97.7[facility] HospitalComment on above:Performed By: #### [id number] #### [facility] (DEFAULT) [address] [place] [address] 11746Wftp Cell Hgb28.0 ohZosafl46.9-33.9[facility] HospitalComment on above:Performed By: #### [id number] #### [facility] (DEFAULT) [address] [place] [address] 83353Aksk Cell Hgb Conc33.0 g/mRVtlref84.4-35.9[facility] HospitalComment on above:Performed By: #### [id number] #### [facility] (DEFAULT) [address] [place] [address] 64734Pamgezypq (Bld) [#/Vol]0.60 10*3/uLNormal0.22-0.87[facility] HospitalComment on above:Performed By: #### [id number] #### [facility] (DEFAULT) [address] [place] [address] 47546Pgomqrnqf/100 WBC (Bld)7.2 %NormalJoint Township District Memorial HospitalComment on above:Performed By: #### [id number] #### [facility] (DEFAULT) [address] [place] [address] 05888Xgifvnscn RBC0.0 /100 WBCNormal<=0.2[facility] HospitalComment on above:Performed By: #### [id number] #### [facility] (DEFAULT) [address] [place] [address] 31913Gkkdledu mean volume (Bld) [Entitic vol]9.4 fLNormal8.5-12.2 [facility] HospitalComment on above:Performed By: #### [id number] #### [facility] (DEFAULT) [address] [place] [address] 05347Bmjydgjkn (Bld) [#/Vol]395 10*3/cZOmke097-777IxduJoint Township District Memorial HospitalComment on above:Performed By: #### [id number] #### [facility] (DEFAULT) [address] [place] [address] 04330JUD (Bld) [#/Vol]4.90 10*6/uLNormal3.91-5.04[facility] HospitalComment on above:Performed By: #### [id number] #### [facility] (DEFAULT) [address] [place] [address] 47580WDJ Aeyqbvjzdevv55.6 %Gviebp66.8-14.9[facility] HospitalComment on above:Performed By: #### [id number] #### [facility] (DEFAULT) [address] [place] [address] 74968Abdf + Bands Auto59.1 %NormalJoint Township District Memorial HospitalComment on above:Performed By: #### [id number] #### [facility] (DEFAULT) [address] [place] [address] 82549Kygs + Bands,Absolute Auto4.93 K/uLNormal1.64-7.28[facility] HospitalComment on above:Performed By: #### [id number] #### [facility] (DEFAULT) [address] [place] [address] 30531IRI (Bld) [#/Vol]8.35 10*3/uLNormal3.99-11.19[facility] HospitalComment on above:Performed By: #### [id number] #### [facility] (DEFAULT) [address] [place] [address] 64153WATQVQJELLNK Aon 18-13-6621Sqqrrjewtqxd A74 ng/mLNormal<93[facility] HospitalComment on above:Result Comment: ADDITIONAL INFORMATION The testing method is a homogeneous time-resolved immunofluorescent assay manufactured by [employer] and performed on the [employer] Kryptor Compact Plus. Values obtained with different [...] examination and other findings. Test Performed by: [place] [address] Mortgage Funder: Jami Sher Ph.D.; CLIA# [id number] By: #### YCHGRA #### [facility] (DEFAULT) [address] [place], [place] [address]COMPREHENSIVE METABOLIC PANELon 04-50-5609Pryyqsq [Mass/Vol] 5.1 g/dLHigh3.5 - 5.0 g/dLOSU [facility] Memorial HospitalALP [Catalytic activity/Vol] 56 U/L32 - 126 U/LOSU [facility] HospitalALT [Catalytic activity/Vol]12 U/L9 - 48 U/[facility]ITALU [facility] HospitalAnion gap [Moles/Vol]14 mmol/L7 - 17 mmol/[facility]ITALU [facility] HospitalAST [Catalytic activity/Vol]12 U/L10 - 39 U/[facility] HospitalBilirubin [Mass/Vol]0.5 mg/dLNINF - 1.5 mg/dLOSU [facility] HospitalCalcium [Mass/Vol]9.7 mg/dL8.6 - 10.5 mg/dLOSU [facility] Chloride [Moles/Vol]104 mmol/L98 - 108 mmol/[facility]ITALU [facility] HospitalCO2 [Moles/Vol]25 mmol/L21 - 31 mmol/[facility] HospitalCreatinine [Mass/Vol] 0.7 mg/dL0.50 - 1.20 mg/dLTriHealth McCullough-Hyde Memorial HospitaleGFR, CKD-EPI, Female- PINF [facility] HospitalComment on above:Reported eGFR is based on the CKD-EPI 2020 equation using creatinine, age, and sex.Glucose [Mass/Vol]70 mg/dL70 - 99 mg/dLTriHealth McCullough-Hyde Memorial HospitalInterpretation and review of laboratory results AbnormalOSU Wilson Memorial HospitalOsmolality Calc [Osmolality]288OSJoint Township District Memorial HospitalPotassium [Moles/Vol]4 mmol/L3.5 - 5.0 mmol/[facility] HospitalProtein [Mass/Vol]8.1 g/dL6.4 - 8.3 g/dLGood Samaritan Hospitalodium [Moles/Vol]139 mmol/L135 - 145 mmol/[facility] HospitalUrea nitrogen [Mass/Vol]11 mg/dL7 - 25 mg/dLTriHealth McCullough-Hyde Memorial HospitalUrea nitrogen/Creatinine [Mass ratio]16 mg/mgTriHealth McCullough-Hyde Memorial HospitalAlbumin [Mass/Vol]5.1 g/dLHigh 3.5-5.0[facility] HospitalComment on above:Performed By: #### MOSES CAZARESN #### [facility] (DEFAULT) [address] [place] [address] 19274HYU [Catalytic activity/Vol]56 U/XEdhkha96-421HldsJoint Township District Memorial HospitalComment on above:Performed By: #### MOSES CAZARESN #### [facility] (DEFAULT) [address] [place], [place] [address]UIU [Catalytic activity/Vol]12 U/LNormal9-48[facility] HospitalComment on above:Performed By: #### MOSES CAZARESN #### [facility] (DEFAULT) [address] [place], [place] [address]Upxsy gap [Moles/Vol]14 mmol/LNormal7-17[facility] HospitalComment on above:Performed By: #### MOSES CAZARESN #### [facility] (DEFAULT) [address] [place] [address] 54111IWD [Catalytic activity/Vol]12 U/EGqvtcd94-64DrptJoint Township District Memorial HospitalComment on above:Performed By: #### MOSES CAZARESN #### [facility] (DEFAULT) [address] [place] [address] 73656Iorcbhqjk [Mass/Vol]0.5 mg/dLNormal<1.5[facility] HospitalComment on above:Performed By: #### MOSES CAZARESN #### [facility] (DEFAULT) [address] [place] [address] 41738Orakgqf [Mass/Vol]9.7 mg/dLNormal8.6-10.5[facility] HospitalComment on above:Performed By: #### MOSES CAZARESN #### [facility] (DEFAULT) [address] [place] [address] 88803Ehzbuouw [Moles/Vol]104 mmol/RTorrjj05-143FbyeJoint Township District Memorial HospitalComment on above:Performed By: #### MOSES CAZARESN #### [facility] (DEFAULT) [address] [place] [address] 20612WK1 [Moles/Vol]25 mmol/QKgmcpj18-47JqvnJoint Township District Memorial HospitalComment on above:Performed By: #### SAGE CMPN #### [facility] (DEFAULT) [address] [place] [address] 08462Cnhlmhwdzx [Mass/Vol]0.70 mg/dLNormal0.50-1.20[facility] HospitalComment on above:Performed By: #### SAGE CMPN #### [facility] (DEFAULT) [address] [place] [address] 78782wDDJ, CKD-EPI, Female>Normal>=60OhMemorial Health System Selby General HospitalComment on above:Result Comment: Reported eGFR is based on the CKD-EPI 2020 equation using creatinine, age, and sex.Performed By: #### MOSES CAZARESN #### [facility] (DEFAULT) [address] [place] [address] 61311Ljsmevf [Mass/Vol]70 mg/kAReajoj93-49TtrwJoint Township District Memorial HospitalComment on above:Performed By: #### MOSES CAZARESN #### [facility] (DEFAULT) [address] [place] [address] 74354Rtmeacrkyn [Osmolality]288 mosm/vbNjwwba393-911YfxyJoint Township District Memorial HospitalComment on above:Performed By: #### MOSES CAZARESN #### [facility] (DEFAULT) [address] [place] [address] 98485Vrkmolycq [Moles/Vol]4.0 mmol/LNormal3.5-5.0[facility] HospitalComment on above:Performed By: #### MOSES CAZARESN #### [facility] (DEFAULT) [address] [place] [address] 41139Iqkyfhv [Mass/Vol]8.1 g/dLNormal6.4-8.3[facility] HospitalComment on above:Performed By: #### SAGE CMPN #### [facility] (DEFAULT) [address] [place] [address] 21468Fhanjv [Moles/Vol]139 mmol/IRuwars314-977GjdhJoint Township District Memorial HospitalComment on above:Performed By: #### SAGE CMPN #### [facility] (DEFAULT) [address] [place] [address] 89166Ibwt nitrogen [Mass/Vol]11 mg/dLNormal7-25[facility] HospitalComment on above:Performed By: #### SAGE, CMPN #### [facility] (DEFAULT) [address] [place] [address] 69526Gswn nitrogen/Creatinine [Mass ratio]16 mg/mgNormalOhiMemorial Health System Marietta Memorial HospitalComment on above:Performed By: #### SAGE, MOSESN #### [facility] (DEFAULT) [address] [place], [place] [address]ASPQHOK DEHYDROGENASEon 50-35-8213Dxtorpujymjhxq and review of laboratory resultsNormalOOhioHealth Mansfield HospitalLDH Lactate to pyruvate reaction [Catalytic activity/Vol]110 U/L100 - 190 U/LOSU [facility] HospitalLD Vvcfc426 U/XAiwolv843-166LcnpJoint Township District Memorial HospitalComment on above:Performed By: #### SAGE, MOSESN #### [facility] (DEFAULT) [address] [place], [place] [address]Gt Panel Informationon 03-86-2674XYI [facility] IGP,APTIMA HPV,AGE GDLNon 75-41-8406IHR GDLN ACOG TESTINGNote.[facility] Comment on above:TESTS RESULT FLAG UNITS REF RANGE LAB Clinician Provided Cytology Information Source.............Cervix;Endocervix No. of containers..01 ThinPrep Vial Age Algo ACOG Joyce... -16 08 FLAG LEGEND: L-Low Normal,H-High Normal,LL-Alert Low,HH-Alert High <-Panic Low,>-Panic High,A-Abnormal,AA-Critical Abnormal Performed at: 01 =[facility] [place] [address] Dina Jaimes MD, IGP, RFX APTIMA HPV ASCUNote.NOMS HealthcareComment on above:TESTS RESULT FLAG UNITS REF RANGE LAB DIAGNOSIS: 02 NEGATIVE FOR INTRAEPITHELIAL LESION OR MALIGNANCY. Specimen adequacy: 02 Satisfactory for evaluation. No endocervical component is identified. Performed by: 02 Eula Ramesh [employer] T[employer] Floor Layer (ASC) . 02 Note: Note 02 The [...] <-Panic Low,>-Panic High,A-Abnormal,AA-Critical Abnormal Performed at: [address] [facility] [address] [address] Dina Jaimes MD, Performed at: = - [facility] [address] [id number] Mortgage Funder: Dina Jaimes MD, Phone: [phone] Performed at: WB - [facility] [address] [place], [place] [id number] Mortgage Funder: Dina Jaimes MD, Phone: [phone] BRUSH-SPATULA CERVIX ENDOCERVIX CLINISYNCNOMS HealthcareEGD / Colonoscopyon 21-95-8890VhtKqqzseMemorial Hospital Pathology Request for Lab Corpon 62-38-0271Weudzcabr Request for Lab CorpNormal The [facility] Physician GroupComment on above:Order Comment: PATHOLOGY GI SPECIMENResult Comment: See report. Scanned copy available in EMR. PERFORMED BY: [place] [address] PATHOLOGIST GENERAL LEDGER BOOKKEEPER FELY STODDARD M.D.Performed By: #### PATH TO [facility] #### [place] [address] USASurgical Pathologyon 46-88-8613AetPmnftmMemorial HospitalNUC PET NEUROENDOCRINEon 69-13-9557MXY PET NEUROENDOCRINEEXAM: NUC PET NEUROENDOCRINE, 04/25/2024 10:37 AM CLINICAL [...] body to suggest recurrent or metastatic disease [facility]PT Skull base to mid-thighon 04-25-2024 IMPRESSION: In this patient with provided history of neuroendocrine cancer no abnormal tracer avid lesions are seen in the visualized body to suggest recurrent or metastatic disease RADIOLOGYEXAM: NUC PET NEUROENDOCRINE, 04/25/2024 10:37 AM CLINICAL [...] seen projecting over the visualized musculoskeletal structures. RADIOLOGYMarcella Sharma MD - 04/25/2024 EXAM: NUC PET [...] body to suggest recurrent or metastatic disease [facility] HospitalRadiology Study observation (narrative)[facility] HospitalPT Skull base to mid-thighOrdered By: Marcella Sharma on 04-25-2024 [facility] HospitalCT ABDOMEN/PELVIS WITH AND WITHOUT CONTRASTon 26-36-8578ZX ABDOMEN/PELVIS WITH AND WITHOUT CONTRASTEXAM: CT ABDOMEN/PELVIS WITH AND WITHOUT CONTRAST, 04/13/2024 [...] bowel loops. No focal bowel wall thickening. Peritoneum/retroperitoneum: No ascites. Lymph nodes: No enlarged or morphologically abnormal lymph nodes. Vasculature: The abdominal aorta is normal in course and caliber. Patent celiac and superior mesenteric arteries. Patent portal, splenic, and superior mesenteric veins. Bladder: Normal. Pelvic Organs: Normal. Body Wall: Normal. Bones: Normal for patient age. No aggressive lesion. IMPRESSION: No evidence of metastatic disease in the abdomen and pelvis. NOhioHealthCT Abdomen and Pelvis WO and W contrast IV on 69-13-4050KJDVJDOBIU: No evidence of metastatic disease in the abdomen and pelvis. RADIOLOGY EXAM: CT ABDOMEN/PELVIS WITH AND WITHOUT CONTRAST, [...] bowel loops. No focal bowel wall thickening. Peritoneum/retroperitoneum: No ascites. Lymph nodes: No enlarged or morphologically abnormal lymph nodes. Vasculature: The abdominal aorta is normal in course and caliber. Patent celiac and superior mesenteric arteries. Patent portal, splenic, and superior mesenteric veins. Bladder: Normal. Pelvic Organs: Normal. Body Wall: Normal. Bones: Normal for patient age. No aggressive lesion. RADIOLOGYIsmail, Mandi Santos DO - 04/13/2024 EXAM: CT [...] bowel loops. No focal bowel wall thickening. Peritoneum/retroperitoneum: No ascites. Lymph nodes: No enlarged or morphologically abnormal lymph nodes. Vasculature: The abdominal aorta is normal in course and caliber. Patent celiac and superior mesenteric arteries. Patent portal, splenic, and superior mesenteric veins. Bladder: Normal. Pelvic Organs: Normal. Body Wall: Normal. Bones: Normal for patient age. No aggressive lesion. IMPRESSION IMPRESSION: No evidence of metastatic disease in the abdomen and pelvis. [facility] HospitalRadiology Study observation (narrative)[facility] HospitalCT Abdomen and Pelvis WO and W contrast IVOrdered By: Mandi Montiel on 18-43-7318AKSTriHealth [facility] Hospital Work Phone: us breast BI limitedon 80-42-8421BX breast BI limited [facility] Main [place] [address] [place] [address] Ultrasound Report Signed Patient: Zainab Granados MR#: [id number] : 1995 Acct:[id number] Age/Sex: 28 / F ADM Date: 04/03/24 Loc: [facility] Room: Type: [facility] Attending Dr: Erin Whiteside BANDAGE MAKER-C Ordering Provider: Erin Whiteside CNP Date of Service: 04/03/24 US/US breast BI limited: N63.0 Copies to: Erin Whiteside CNP BILATERAL COMPLETE BREAST ULTRASOUND CLINICAL DATA: Bilateral palpable breast lumps COMPARISON: September 23, 2022 mammogram and ultrasound from [facility] Real-time ultrasound evaluation of all 4 [...] Beata Anthony M.D.04/03/2024 12:09 PM Dictation Location: [facility] Tech: Johana Edmonds Transcribed By: JOSE ELIAS 04/03/24 1209 Dictated By: Beata Anthony MD 04/03/24 0958 Signed By: 04/03/24 1209[facility] Physician GroupUS Thyroid glandon 81-77-6[place] [address] Ultrasound Report Signed Patient: ZAINAB SWIFT MR#: [id number] : 1995 Acct:[id number] Age/Sex: 28 / F ADM Date: 12/22/23 Loc: US Attending Dr: Elayne Bush Ordering Physician: Elayne Bush Date of Service: 12/22/23 Procedure(s): US thyroid Accession Number(s): [id number] cc: Elayne Bush; ERIN WHITESIDE [place] [address] Patient Name: ZAINAB SWIFT MRN: [id number] date: 1995 Sex: F Assigned Patient Location: Current Patient Location: [facility] Accession/Order Number: [id number] Exam Date: 12/22/2023 17:34 Report Date: 12/24/2023 08:10 At the request of: ELAYNE BUSH Procedure: US thyroid EXAMINATION: US thyroid HISTORY: [...] of the thyroid gland. Electronically authenticated by: CAROLYN WALSH Date: 12/24/2023 08:10 Dictated By: Carolyn Walsh M.D. Signed By: 06/02/08 813 DD/ 9 TD/TT: Regulatory Scientist:CLARIadiologconstance, Radiologist, - 12/24/[address] [address] Ultrasound Report Signed Patient: ZAINAB SWIFT MR#: [id number] : 1995 Acct:[id number] Age/Sex: 28 / F ADM Date: 12/22/23 Loc: US Attending Dr: Elayne Bush Ordering Physician: Elayne Bush Date of Service: 12/22/23 Procedure(s): US thyroid Accession Number(s): [id number] cc: Elayne Bush; ERIN WHITESIDE [place] [id number] Patient Name: ZAINAB SWIFT MRN: [id number] date: 1995 Sex: F Assigned Patient Location: US Current Patient Location: [facility] Accession/Order Number: [id number] Exam Date: 12/22/2023 17:34 Report Date: 12/24/2023 08:10 At the request of: ELAYNE BUSH Procedure: US thyroid EXAMINATION: US thyroid HISTORY: [...] of the thyroid gland. Electronically authenticated by: CAROLYN WALSH Date: 12/24/2023 08:10 Dictated By: Carolyn Walsh M.D. Signed By: 12/24/23812 DD/ 9 TD/TT: Regulatory Scientist: ALBERTO HealthcareRadiology Study observation (narrative)ALBERTO HealthcareUS Thyroid glandOrdered By: Radiologist Radiology on 89-19-4863KQSJ Healthcare Work Phone: alpha 1 ANTITRYPSINon 18-29-0100Mqflf 1 antitrypsin [Mass/Vol]125 mg/dL84 - 218 mg/dLTriHealth McCullough-Hyde Memorial HospitalCERULOPLASMINon 28-82-1550Sqcnejrinwczl [Mass/Vol]31 mg/dL20 - 60 mg/dLTriHealth [facility]ull[facility] Hospital CHEM 7 (LYTES,BUN,CREA,GLUC)on 05-55-7039Cdliy gap [Moles/Vol]17 mmol/L7 - 17 mmol/[facility] HospitalChloride [Moles/Vol]102 mmol/L98 - 108 mmol/[facility] HospitalCO2 [Moles/Vol]26 mmol/L21 - 31 mmol/[facility] HospitalCreatinine [Mass/Vol]0.55 mg/dL0.50 - 1.20 mg/dLTriHealth McCullough-[facility] Memorial Hospital eGFR, CKD-EPI, Female- PINMercy Health Clermont HospitalComment on above:Reported eGFR is based on the CKD-EPI 2020 equation using creatinine, age, and sex. Glucose [Mass/Vol]123 mg/hZWoqw23 - 99 mg/dLTriHealth McCullough-Hyde Memorial HospitalOsmolality Calc [Osmolality]294OSJoint Township District Memorial HospitalPotassium [Moles/Vol]3.8 mmol/L3.5 - 5.[address] Vincent Hospitalodium [Moles/Vol]141 mmol/L135 - 145 mmol/[facility] HospitalUrea nitrogen [Mass/Vol]7 mg/dL7 - 25 mg/dLTriHealth McCullough-Hyde Memorial HospitalUrea nitrogen/Creatinine [Mass ratio]13 mg/mgTriHealth McCullough-Hyde Memorial HospitalFERRITINon 65-79-5861Hmjmyynz [Mass/Vol]26.5 ng/mL7.3 - 270.7 ng/mLTriHealth McCullough-Hyde Memorial HospitalInterpretation and review of laboratory results NormalOSJoint Township District Memorial HospitalOSJoint Township District Memorial HospitalHEPATIC FUNCTION PANELon 69-04-3987Yegkkrg [Mass/Vol]4.7 g/dL3.5 - 5.0 g/dLTriHealth McCullough-Hyde Memorial HospitalALP [Catalytic activity/Vol]67 U/L32 - 126 U/LOSU [facility] CenterALT [Catalytic activity/Vol]68 U/LHigh9 - 48 U/LOSU [facility] HospitalAST [Catalytic activity/Vol]42 U/LHigh10 - 39 U/[facility] HOSPITALU [facility] HospitalBilirubin [Mass/Vol]0.5 mg/dLNINF - 1.5 mg/dLOSU [facility] Memorial HospitalBilirubin.direct [Mass/Vol]0.1 mg/dLNINF - 0.3 mg/dLOSU [facility] Memorial HospitalProtein [Mass/Vol] 7.4 g/dL6.4 - 8.3 g/dLOSU [facility] Memorial HospitalIRON/IRON BINDING/TRANSFERRINon 48-70-9587Waskpeewjiufko and review of laboratory resultsNoKettering Health Greene MemorialIron [Mass/Vol]79 ug/dLOSU Wilson Memorial HospitalIron binding capacity [Mass/Vol]346OS[facility] HospitalIron saturation [Mass fraction]23 %20 - 55 %[facility] HospitalTransferrin [Mass/Vol]277 mg/dL200 - 400 mg/dLOSJoint Township District Memorial HospitalNo Panel Informationon 38-62-9649Vsmbocjkjxbyaa and review of laboratory resultsAbnoEast Los Angeles Doctors HospitalInterpretation and review of laboratory resultsNoEast Los Angeles Doctors HospitalPROTIME-INRon 25-34-0239DOI Coag (Bld) [Relative time]1.0 {INR}0.9 - 1.1[facility] HospitalInterpretation and review of laboratory resultsNoKettering Health Greene MemorialPT Coag (PPP) [Time] 13.4 sOSU [facility] of Burlington CountyTSHon 11-26-2023 Interpretation and review of laboratory resultsNoKettering Health Greene Memorial TSH Qn1.315 m[IU]/[facility] HOSPITALU [facility] of Burlington CountyUS OB GROWTHon 58-63-7857Fso[address] [address] Ultrasound Report Signed Patient: ZAINAB SWIFT MR#: [id number] : 1995 Acct:[id number] Age/Sex: 28 / F ADM Date: 09/20/23 Loc: [facility] Attending Dr: Ron Ruano D.O. Ordering Physician: Ron Ruano D.O. Date of Service: 09/20/23 Procedure(s): US OB growth Accession Number(s): [id number] cc: ERIN WHITESIDE ; Ron Ruano D.O. [place] [address] Patient Name: ZAINAB SWIFT MRN: [facility]:[id number] date: 1995 Sex: F Assigned Patient Location: [facility] Current Patient Location: Accession/Order Number: [id number] Exam Date: 09/20/2023 15:05 Report Date: 09/21/2023 06:58 At the request of: RON RUANO Procedure: US OB growth EXAMINATION: US [...] Signed By: 09/21/23 0701 DD/ 0658 TD/TT: Regulatory Scientist:TBHRadiology, Radiologist, - 09/21/2023 [place] [address] Ultrasound Report Signed Patient: ZAINAB SWIFT MR#: [id number] : 1995 Acct:[id number] Age/Sex: 28 / F ADM Date: 09/20/23 Loc: [facility] Attending Dr: Ron Ruano D.O. Ordering Physician: Ron Ruano D.O. Date of Service: 09/20/23 Procedure(s): US OB growth Accession Number(s): [id number] cc: ERIN WHITESIDE ; Ron Ruano D.O. The [place] [address] Patient Name: ZAINAB SWIFT MRN: [id number] date: 1995 Sex: F Assigned Patient Location: [facility] Current Patient Location: Accession/Order Number: [id number] Exam Date: 09/20/2023 15:05 Report Date: 09/21/2023 06:58 At the request of: RON RUANO Procedure: US OB growth EXAMINATION: US [...] Signed By: 09/21/23 0701 DD/ 0658 TD/TT: Regulatory Scientist: [facility] HospitalRadiology Study observation (narrative)[facility] HospitalUS OB GROWTHOrdered By: Radiologist Radiology on 60-89-1642KMVA [employer] Work Phone: mri ABDOMEN/PELVIS WITHOUT CONTRASTon 03-11-2023 IMPRESSION: 1. Stable postoperative changes from right hemicolectomy. No definite evidence of recurrence or distant disease. 2. The previously seen lymph node in the anterior left hemiabdomen is not well visualized on this exam. RADIOLOGY EXAM: MRI ABDOMEN/PELVIS WITHOUT CONTRAST, (MRI ABDOMEN [...] There is no hydronephrosis. Retroperitoneal/Lymph Nodes/Vasculature: No abdominal/retroperitoneal adenopathy is identified. Abdominal aorta and its [...] Visualized bony structures reveal normal marrow signal. Mandi Claudio DO - 03/11/2023 EXAM: MRI ABDOMEN/PELVIS WITHOUT [...] There is no hydronephrosis. Retroperitoneal/Lymph Nodes/Vasculature: No abdominal/retroperitoneal adenopathy is identified. Abdominal aorta and its [...] is not well visualized on this exam. [facility] HospitalRadiology Study observation (narrative)[facility] HospitalMRI ABDOMEN/PELVIS WITHOUT CONTRASTOrdered By: Mandi Montiel on 95-26-8582TCX [facility] Work Phone: ct Chest W contrast Jason 62-02-3852HMMCPREHMI: Stable exam with no definite evidence of intrathoracic metastatic disease. I personally viewed and interpreted these images and I have reviewed and approved this report. RADIOLOGYEXAM: CT CHEST WITH CONTRAST, 10/22/2022 08:21 AM [...] and Soft Tissue: No suspicious osseous lesion. RADIOLOGYBenjamin Santos MB/SHEBA - 10/23/2022 EXAM: CT CHEST [...] I have reviewed and approved this report. [facility] HospitalCT Chest W contrast IVOrdered By: Benjamin Santos on 81-62-3255MOI [facility] HospitalCT Chest W contrast Jason 82-61-4112Uvnqomzwi Study observation (narrative)[facility] HospitalCT Neck W contrast Jason 38-53-0457GUEDGCLBCS: Examination is within normal limits. Negative for mass or adenopathy in the neck. RADIOLOGY EXAM: CT NECK WITH CONTRAST, 10/22/2022 08:25 [...] skull base, sinuses, and orbits are unremarkable. RADIOLOGYMiguel Espinal MD - 10/22/2022 EXAM: CT NECK [...] for mass or adenopathy in the neck. [facility] HospitalRadiology Study observation (narrative)[facility] Memorial HospitalCT Neck W contrast IVOrdered By: Miguel Espinal on 69-24-0494FSVTriHealth McCullough-Hyde Memorial Hospital Work Phone: cardiac echo study ProcedureOrdered By: Guerrero Carvalho on 35-87-5184Hg peak vel1.26 m/[facility] Work Phone: [phone] VTI19.98 cmOSJoint Township District Memorial Hospital Work Phone: [phone] aorta2.62 cmTriHealth McCullough-[facility] Memorial Hospital Work Phone: [phone] LVOT peak qpchuvjn0mrRcHOYTriHealth McCullough-[facility] Memorial Hospital Work Phone: [phone] mean qpundrjz3mjZmFKRTriHealth McCullough-[facility] Hospital Work Phone: [phone] peak xrgqwoqx9htLNWYZTriHealth McCullough-[facility] Memorial Hospital Work Phone: [phone] valve area2.24 cm2[facility] Work Phone: [phone] Velocity Ratio0.70[facility] Work Phone: [phone] (continuity Vmax)1.82 cm2[facility] Work Phone: [phone] (continuity VTI)2.24 cm2[facility] Work Phone: [phone] index (continuity Vmax)1.06 m/[facility] Work Phone: [phone] index (continuity VTI)1.30 cm2/m2[facility] Work Phone: [phone] e' pk vel0.15 m/[facility] Work Phone: [phone] E/e' ratio4.89[facility] Work Phone: [phone] surface area Derived from formula1.72 m2[facility] Work Phone: [phone] EF62 %[facility] Work Phone: [phone] (Vmax)0.70[facility] Work Phone: [phone] (VTI)0.86 m/2OSJoint Township District Memorial Hospital Work Phone: [phone] wave decelartion ymug415.58msecTriHealth McCullough-Hy[facility] Memorial Hospital Work Phone: [phone]' lateral pk vel0.1597 m/[facility] Work Phone: [phone]' lateral pk vel0.16 m/[facility] Work Phone: [phone]' septal pk vel0.1401 m/[facility] Work Phone: [phone]' septal pk vel0.14 m/[facility] Work Phone: [phone]/A ratio0.74OSJoint Township District Memorial Hospital Work Phone: [phone])E/e' lateral ratio4.57[facility] Work Phone: [phone]/e' septal ratio5.21[facility] Work Phone: [phone] SP 5WV47XYZ [facility] Work Phone: [phone] SP 9GH25CSBTriHealth McCullough-Hy[facility] Memorial Hospital Work Phone: [phone] %28 - 44 %[facility] Work Phone: [phone] ostium1.46 cmOSJoint Township District Memorial Hospital Work Phone: [phone])IVS0.61 cmTriHealth McCullough-[facility] Hospital Work Phone: [phone] AREA 2CH13.72 cm2[facility] Work Phone: [phone] area 4CH9.33 cm2[facility] Work Phone: [phone] ESV BP (MOD)29 mLOSU [facility] Work Phone: [phone] ESV BP (MOD) index17 mL/m2OSJoint Township District Memorial Hospital Work Phone: [phone] ESV SP 2CH (MOD)37 mLOSU [facility] Work Phone: LA ESV SP 4CH (MOD)19 mLTriHealth McCullough-[facility] Work Phone: Long Strain-21.7 %[facility] Work Phone: LV EDV BP71 [facility] Work Phone: [phone] EDV SP 2CH76 [facility] Work Phone: [phone] EDV SP 4CH61 [facility] Work Phone: [phone] ESV BP27 [facility] Work Phone: [phone] ESV SP 2CH27 [facility] Work Phone: [phone] ESV SP 4CH25 [facility] Work Phone: [phone] mass68.53 gOSJoint Township District Memorial Hospital Work Phone: [phone] Mass Index39.8 g/m2[facility] Work Phone: [phone] RWT0.30[facility] Work Phone: [phone] stroke volume BP (ml)44 [facility] Work Phone: [phone] stroke volume index BP25.58 mL/m2[facility] Work Phone: [phone] cmTriHealth McCullough-[facility] Memorial Hospital Work Phone: [phone] [facility] Work Phone: [phone] area2.60 cm2[facility] Work Phone: [phone] diameter1.82 [facility] Work Phone: [phone] peak vel0.88 m/sOSU [facility] Work Phone: [phone] peak VTI17.19 [facility] Work Phone: [phone])LVOT stroke pgksaf21 cm3[facility] Work Phone: [phone] stroke volume index25.99 ml/m2[facility] Work Phone: [phone] pk A vel0.98 m/[facility] Work Phone: [phone] pk E vel0.73 m/[facility] Work Phone: [phone] stenosis pressure 1/2 time63.10 msOSJoint Township District Memorial Hospital Work Phone: [phone] valve area p 1/2 method3.49 cm2[facility] Work Phone: [phone] AV VTI RATIO PRE STRESS0.86[facility] Work Phone: [phone] ECHO LV BIPLANE SYSTOLIC VOLUME INDEX15.70 mL/m2 [facility] Work Phone: [phone] ECHO LV BP DIASTOLIC VOLUME INDEX41.28 mL/m2[facility] Work Phone: [phone] peak ndhaabzj9ldBpQXZTriHealth McCullough-[facility] Memorial Hospital Work Phone: [phone] PK VEL0.97 m/[facility] Work Phone: [phone] cmTriHealth McCullough-[facility] Memorial Hospital Work Phone: [phone] vol index 4CH (MOD)12.79 mL/m2[facility] Work Phone: [phone] atrium volume 4 chamber method of disks22 mLTriHealth McCullough[facility] Work Phone: [phone] Area zdgtwmrmy71.85 cm2[facility] Work Phone: [phone] Area nqarxryd10.51 cm2[facility] Work Phone: [phone] basal diam3.02 cmTriHealth McCullough-Hy[facility] Memorial Hospital Work Phone: [phone] Fractional area .3 %[facility] Work Phone: [phone] long diam7.35 cmTriHealth McCullough-[facility] Memorial Hospital Work Phone: [phone] Long Strain-28.0 %[facility] Work Phone: [phone] mid diam2.68 cmTriHealth McCull[facility] Work Phone: [phone] S'12.55 cm/[facility] Work Phone: [phone] peak gbdsgwtx9btYnDVOTriHealth McCullough-Hyde Memorial Hospital Work Phone: [phone] peak vel0.59 m/[facility] Work Phone: [phone] [facility] Work Phone: [phone] [facility] Work Phone: [phone])Stroke Sevddw06 cm/mLTriHealth McCullough-[facility] Work Phone: [phone])Stroke volume ifvzt47OYETriHealth McCullough-[facility] Memorial Hospital Work Phone: [phone] [facility] Work Phone: [phone])[facility] Work Phone: [phone] echo study Procedureon 71-37-6957Ffqd Ventricle: Chamber size is normal. Normal wall [...] vena cava structure has a diameter <21 mmand decreases >50% during inspiration. Mitral Valve Normal appearing leaflets. Leaflet mobility is normal. Trace regurgitation. No valve stenosis. Tricuspid Valve Normal leaflets. Leaflet mobility is normal. No regurgitation. No stenosis. Pulmonary artery systolic pressure (PASP) is unable to be estimated. Aortic Valve Trileaflet valve. Leaflet mobility is normal. No regurgitation. No stenosis. Mean gradient: 3 mmHg.The valve Vmax is 1.26 m/s. Pulmonic Valve [...] 1.00 The left ventricular wall motion is normal.[facility] HospitalRadiology Study observation (narrative)[facility] Memorial HospitalB-TYPE NATRIURETIC PEPTIDE (BRAIN)on 57-89-6630Irtrsorpmwpmws and review of laboratory resultsNormalOSU [facility] Memorial HospitalNatriuretic peptide B (Bld) [Mass/Vol]4 pg/mL0 - 100 pg/mL [facility] CenterHIGH SENSITIVITY TROPONIN I - SINGLE ORDERon 85-64-4535Ehvetjsnehjsjl and review of laboratory resultsNormal [facility] HospitalTroponin I.cardiac High sensitivity method [Mass/Vol] ng/LNINF - 34 ng/LOSU [facility] Burlington CountyMONOon 96-74-5003Mbwjwkelh (Bld) [#/Vol]NegativeNormalNEGATIVETrinity Health System [facility] Comment on above:Performed By: #### LIVER, LDH, BMP #### [facility] [address] [place] [address] Dr. Esthela Saunders AUTO DIFFon 89-38-4340FBQK #0.1 103/ulNormal0.0-0.1The [facility]S HospitalComment on above:Performed By: #### LIVER, LDH, BMP #### [facility] [address] [place] [address] Dr. Esthela StevensBasophils/100 WBC (Bld)0.8 %Normal0.2-2.0[facility] Comment on above:Performed By: #### LIVER, LDH, BMP #### [facility] [address] [place] [address] Dr. Proctor ChangEAnanda #0.1 103/ulNormal0.0-0.7The [facility] HospitalComment on above: Performed By: #### LIVER, LDH, BMP #### [facility] [address] [place] [address] Dr. Esthela Ricciosinophils/100 WBC (Bld)1.7 %Normal0.9-7.0The [facility] Comment on above:Performed By: #### LIVER, LDH, BMP #### [facility] [address] [place] [address] Dr. Esthela Riccirythrocyte distribution width (RBC) [Ratio]13.1 %Twjbdu28.0-15.0 The [facility] HospitalComment on above:Performed By: #### LIVER, LDH, BMP #### [facility] [address] [place] [address] Dr. Esthela StevensHematocrit (Bld) [Volume fraction]38.4 %Xwfare57.0-48.0The [facility]S HospitalComment on above:Performed By: #### LIVER, LDH, BMP #### [facility] [address] [place] [address] Dr. Esthela StevensHemoglobin (Bld) [Mass/Vol]12.4 g/dRDvgpgi09.0-16.0The [facility] HospitalComment on above:Performed By: #### LIVER, LDH, BMP #### [facility] [address] [place] [address] Dr. Esthela Mcclellan #0.02 10e3/ulNormal0.00-0.03The [facility]S HospitalComment on above:Performed By: #### LIVER, LDH, BMP #### [facility] [address] [place] [address] Dr. Esthela Mcclellan %0.3 %Normal0.0-0.5The [facility]S HospitalComment on above: Performed By: #### LIVER, LDH, BMP #### [facility] [address] [place] [address] Dr. Esthela Rich #2.2 103/ulNormal1.2-3.8The [facility]'S HospitalComment on above:Performed By: #### LIVER, LDH, BMP #### [facility] [address] [place] [address] Dr. Esthela Bonillahocytes/100 WBC (Bld)32.8 %Dhmyrh74.5-60.0The [facility]S HospitalComment on above:Performed By: #### LIVER, LDH, BMP #### [facility] [address] [place] [address] Dr. Esthela LiangUAL DIFF REQNONormalThe [facility]'S HospitalComment on above: Performed By: #### LIVER, LDH, BMP #### [facility] [address] [place] [address] Dr. Esthela Fernando (RBC) [Entitic mass]27.1 yxKcxpjz68.7-34.0The [facility]S HospitalComment on above:Performed By: #### LIVER, LDH, BMP #### [facility] [address] [place] [address] Dr. Esthela Pang (RBC) [Mass/Vol]32.3 g/yZHxzkgk39.9-35.2The [facility]S HospitalComment on above:Performed By: #### LIVER, LDH, BMP #### [facility] [address] [place] [address] Dr. Esthela Mccarthy (RBC) [Entitic vol]83.8 hZOwdcbj77.0-99.0The Memorial Hospitalment on above:Performed By: #### LIVER, LDH, BMP #### [facility] [address] [place] [address] Dr. Esthela Jackson #0.5 103/ulNormal0.3-0.8The [facility]S HospitalComment on above:Performed By: #### LIVER, LDH, BMP #### [facility] [address] [place] [address] Dr. Esthela Chanocytes/100 WBC (Bld)8.0 %Normal1.7-12.0[facility] Comment on above:Performed By: #### LIVER, LDH, BMP #### [facility] [address] [place] [address] Dr. Esthela Bonner #3.7 103/ulNormal1.4-6.5The [facility]S HospitalComment on above:Performed By: #### LIVER, LDH, BMP #### [facility] [address] [place] [address] Dr. Esthela Andersonutrophils/100 WBC (Bld)56.4 %Lubrfk08.0-75.0The Memorial Hospitalment on above:Performed By: #### LIVER, LDH, BMP #### [facility] [address] [place] [address] Dr. Esthela Pressleylet mean volume (Bld) [Entitic vol]9.3 fLCritically low 9.5-13.5The [facility] Hospitalment on above:Performed By: #### LIVER, LDH, BMP #### [facility] [address] [place] [address] Dr. Esthela StevensPLT334 103/yvFqhebt147-132Llz Memorial Hospitalment on above: Performed By: #### LIVER, LDH, BMP #### [facility] [address] [place] [address] Dr. Esthela StevensRBC4.58 106/ulNormal4.20-5.40The [facility] HospitalComment on above:Performed By: #### LIVER, LDH, BMP #### [facility] [address] [place] [address] Dr. Esthela DickBC6.6 103/ulNormal4.0-11.0The [facility]'S HospitalComment on above: Performed By: #### LIVER, LDH, BMP #### [facility] [address] [place] [address] Dr. Esthela Delgado 12-50-9847PPC396 U/XEapzjd47-101Sns [facility] on above:Performed By: #### LIVER, LDH, BMP #### [facility] [address] [place] [address] Dr. Esthela Mendoza 87-94-6043Bacbvak [Mass/Vol]4.1 g/dLNormal3.4-5.0 The [facility]S HospitalComment on above:Performed By: #### LIVER, LDH, BMP #### [facility] [address] [place] [address] Dr. Esthela StevensAlbumin/Globulin [Mass ratio]1.2 {ratio}NormalThe [facility] on above:Performed By: #### LIVER, LDH, BMP #### [facility] [address] [place] [address] Dr. Esthela Pinedo [Catalytic activity/Vol]75 U/HUwqdkp51-322Slm Memorial Hospitalment on above:Performed By: #### LIVER, LDH, BMP #### [facility] [address] [place] [address] Dr. Esthela Saenz [Catalytic activity/Vol]41 U/RYhbtbp39-42Qem [facility]S HospitalComment on above:Performed By: #### LIVER, LDH, BMP #### [facility] [address] [place] [address] Dr. Esthela Perez [Catalytic activity/Vol]30 U/WRlktdv22-38Per [facility]S HospitalComment on above:Performed By: #### LIVER, LDH, BMP #### [facility] [address] [place] [address] Dr. Esthela De La CruzI, CONJUGATED0.1 mg/dLNormal0.0-0.2The [facility] Comment on above:Performed By: #### LIVER, LDH, BMP #### [facility] [address] [place] [address] Dr. Esthela StevensBilirubin [Mass/Vol]0.5 mg/dLNormal0.2-1.0The [facility] Comment on above:Performed By: #### LIVER, LDH, BMP #### [facility] [address] [place] [address] Dr. Esthela StevensGlobulin (S) [Mass/Vol]3.3 g/dLNormalThe [facility]'S HospitalComment on above:Performed By: #### LIVER, LDH, BMP #### [facility] [address] [place] [address] Dr. Esthela StevensProtein [Mass/Vol]7.4 g/dLNormal6.4-8.2[facility] Comment on above:Performed By: #### LIVER, LDH, BMP #### [facility] [address] [place] [address] Dr. Esthela StevensPROF CHEM 8 (BAS METB)on 64-25-0854Myulw gap [Moles/Vol]9.2 mmol/LNormalTrinity Health System Twin City Medical CenterComment on above:Performed By: #### LIVER, LDH, BMP #### [facility] [address] [place] [address] Dr. Esthela StevensCalcium [Mass/Vol]9.0 mg/dLNormal8.5-10.1The [facility] Comment on above:Performed By: #### LIVER, LDH, BMP #### [facility] [address] [place] [address] Dr. Esthela StevensChloride [Moles/Vol]102 mmol/YExnkta87-701Oxv [facility] Comment on above:Performed By: #### LIVER, LDH, BMP #### [facility] [address] [place] [address] Dr. Esthela StevensCO2 [Moles/Vol]27.8 mmol/SPrwdvh48.0-32.0The [facility] Comment on above:Performed By: #### LIVER, LDH, BMP #### [facility] [address] [place] [address] Dr. Esthela StevensCreatinine [Mass/Vol]0.63 mg/dLNormal0.55-1.02The [facility]'S HospitalComment on above:Performed By: #### LIVER, LDH, BMP #### [facility] [address] [place] [address] Dr. Esthela RicciGFR-AF ECUADOREAN>60Normal>=60The [facility]'S HospitalComment on above:Performed By: #### LIVER, LDH, BMP #### [facility] [address] [place] [address] Dr. Esthela RicciGFR-NON AF ECUADOREAN>60Normal>=60The [facility]'S HospitalComment on above:Performed By: #### LIVER, LDH, BMP #### [facility] [address] [place] [address] Dr. Esthela StevensGlucose [Mass/Vol]106 mg/xUEpnghd03-218Avv [facility] Comment on above:Performed By: #### LIVER, LDH, BMP #### [facility] [address] [place] [address] Dr. Esthela StevensPotassium [Moles/Vol]4.0 mmol/LNormal3.5-5.1[facility] Comment on above:Performed By: #### LIVER, LDH, BMP #### [facility] [address] [place] [address] Dr. Esthela Perezdium [Moles/Vol]135 mmol/LCritically vfo019-183Nyx [facility]S HospitalComment on above:Performed By: #### LIVER, LDH, BMP #### [facility] [address] [place] [address] Dr. Esthela StevensUrea nitrogen [Mass/Vol]9.0 mg/dLNormal7.0-18.0The [facility]'S HospitalComment on above:Performed By: #### LIVER, LDH, BMP #### [facility] [address] [place] [address] Dr. Esthela StevensUrea nitrogen/Creatinine [Mass ratio]14.3 mg/mgNoSelect Medical Specialty Hospital - YoungstownComment on above:Performed By: #### LIVER, LDH, BMP #### [facility] [address] [address] [address] Esthela StevensMG MAMM DIAGNOSTIC 3D EFREN CADon 17-47-8206IG MAMM DIAGNOSTIC 3D EFREN CADPatient: ZAINAB SWIFT Exam Date: 09/23/2022 : 1995 Gender:F [facility]ing : [facility] Admission #: [id number] Family : Order #: [id number] CLICK HERE TO VIEW EXAM RADIOLOGY REPORT [...] cervical cancer at age 42. LOCATION: [facility] BREAST COMPOSITION: Extremely dense, which lowers [...] by: Carolyn Walsh M.D. on 09/23/2022 at 11:31[facility] Medical CenterUS BREAST EFREN LIMITEDon [id number] BREAST EFREN LIMITEDPatient: ZAINAB SWIFT Exam Date: 09/23/2022 : 1995 Gender:F Ordering : [facility] Admission #: [id number] Family : Order #: [id number] CLICK HERE TO VIEW EXAM RADIOLOGY REPORT [...] cervical cancer at age 42. LOCATION: [facility] BREAST COMPOSITION: Extremely dense, which lowers [...] by: Carolyn Walsh M.D. on 09/23/2022 at 11:31NoSelect Medical Specialty Hospital - YoungstownCovid-19 PCR (CVDTBH)on 36-06-8985FOQP-CoV-2 (COVID-19) RNA JORGE LUIS+probe Ql (Unsp spec)Not detectedNormalNOT DETECTEDThe [facility]'S HospitalComment on above: Result Comment: When diagnostic testing [...] for this test is supported by the Global Safety Officer of Health and Human Service's declaration that circumstances exist to justify the emergency use of in vitro diagnostics for the detection and/or diagnosis of the virus that causes COVID-19. This EUA will remain in effect for the duration of the COVID-19 declaration justifying emergency of IVDs, unless it is terminated or revoked by the FDA (after which the test may no longer be used).Performed By: #### PREG #### [facility] [address] [place] [address] Dr. Esthela Santos AND [facility] 86-87-6732SJDVEJQYWHZICWVUMedicine [facility] on above:Result Comment: Negative for Flu A protein angiten. Infection due to Flu A cannot be ruled out. FluA angiten in the sample may be below the detection limit of the test.Performed By: #### LIVER, LDH, BMP #### [facility] [address] [place] [address] Dr. Esthela SewellNEGGISSEL [facility] on above: Result Comment: Negative for Flu B protein antigen. Infection due to Flu B cannot be ruled out. FluB antigen in the sample may be below the detection limit of the test.Performed By: #### LIVER, LDH, BMP #### [facility] [address] [place] [address] Dr. Esthela Santos AGNegativeNormalNEGATIVE SEE COMMENTThe [facility] on above:Performed By: #### LIVER, LDH, BMP #### [facility] [address] [place] [address] Dr. Esthela West AGNegativeNormalNEGATIVE SEE COMMENTThe [facility] on above:Performed By: #### LIVER, LDH, BMP #### [facility] [address] [place] [address] Dr. Esthela Velásquez by IFAon 62-86-3665Ddinfbrblln Antibodies, IFAPositive AbnormalTrinity Health System Twin City Medical CenterCombaraga county memorial hospital on above:Result Comment: Negative <1:80 Borderline 1:80 Positive >1:80Performed By: #### PREG #### [facility] [address] [place] [address] Anthony's HospitalComment on above: Performed By: #### PREG #### [facility] [address] [place] [address] Dr. Esthela Coyle PatternAdena Pike Medical CenterComment on above: Performed By: #### PREG #### [facility] [address] [place] [address] Dr. Esthela StevensHomchevyous Pattern1:160Critically highTrinity Health System [facility] Comment on above:Result Comment: ICAP nomenclature: AC-1Performed By: #### PREG #### [facility] [address] [place] [address] Dr. Esthela Atwood PatternNoSelect Medical Specialty Hospital - YoungstownComment on above: Performed By: #### PREG #### [facility] [address] [place] [address] Dr. Esthela StevensNotleonel:CommentMount St. Mary Hospital on above:Result Comment: For more information about Hep-2 cell [...] titers Nucleosomes, Histones Drug-induced SLE Speckled Sm, MATERIAL HANDLING SUPERVISOR, SCL-70, SLE,MCTD,PSS (diffuse form), SS-A/SS-B Sjogrens Nucleolar SCL-70, PM- 1/SCL High titers Scleroderma, PM/DM Centromere Centromere PSS (limited form)w/Crest syndrome variable Nuclear Dot Sp100,c88-zqdaqb Primary Biliary Cirrhosis Nuclear GP210, Primary Biliary Cirrhosis Membrane italia A,B,C Performed By: #### PREG #### [facility] [address] [place] [address] [address] [address] Esthel[address] Padilla Dot PatternNormBellevue HospitalComment on above: Performed By: #### PREG #### [facility] [address] [address] [address] Riberauclear Membrane [address]. Anthony's HospitalComment on above:Performed By: #### PREG #### [facility] [address] [address] [address] StevensN[address] Anthony's HospitalCombaraga county memorial hospital on above: Performed By: #### PREG #### [facility] [address] [address] [address] [facility] HospitalCombaraga county memorial hospital on above:Performed By: #### PREG #### [facility] [address] [address] [address] Anthony's HospitalCombaraga county memorial hospital on above: Performed By: #### PREG #### [facility] [address] [place] [address] Dr. [address] StevensSpindle Apparatus [address] HospitalCombaraga county memorial hospital on above:Performed By: #### PREG #### [facility] [address] [place] [address] Dr. Esthela StevensANTISTREPTOLYSIN O AB (ASO)on 04-50-1279Crlmmmfyymttbqct O Ab58.8 IU/mLNormal0.0-200.0The [facility] on above:Performed By: #### LIVER, LDH, BMP #### [facility] [address] [place] [address] Dr. Esthela StevensINSULINon 15-05-4987Odnmyde18.2 uIU/mLNormal2.6-24.9The [facility] on above:Performed By: #### INSULIN #### [facility] [address] [place] [address] Dr. Esthela StevensRHEUMATOID FACTORon 05-33-3105UJ Latex Turbid.<10.0Normal<14.0The [facility] on above:Performed By: #### LIVER, LDH, BMP #### [facility] [address] [place] [address] Dr. Esthela Saunders AUTO DIFFon 44-51-1851YAAV #0.0 103/ulNormal0.0-0.1The [facility]'S HospitalComment on above:Performed By: #### PREG #### [facility] [address] [place] [address] Dr. Esthela StevensBasophils/100 WBC (Bld)0.6 %Normal0.2-2.0[facility] Comment on above:Performed By: #### PREG #### [facility] [address] [place] [address] Dr. Esthela Alexis #0.1 103/ulNormal0.0-0.7The [facility]S HospitalComment on above: Performed By: #### PREG #### [facility] [address] [place] [address] Dr. Esthela Ricciosinophils/100 WBC (Bld)1.5 %Normal0.9-7.0[facility] Comment on above:Performed By: #### PREG #### [facility] [address] [place] [address] Dr. Esthela Riccirythrocyte distribution width (RBC) [Ratio]12.7 %Xsldwf13.0-15.0 The [facility]'S HospitalComment on above:Performed By: #### PREG #### [facility] [address] [place] [address] Dr. Esthela StevensHematocrit (Bld) [Volume fraction]38.4 %Xprpfc27.0-48.0The [facility]'S HospitalComment on above:Performed By: #### PREG #### [facility] [address] [place] [address] Dr. Esthela StevensHemoglobin (Bld) [Mass/Vol]12.7 g/oBBjqhjh44.0-16.0The [facility]S HospitalComment on above:Performed By: #### PREG #### [facility] [address] [place] [address] Dr. Esthela Mcclellan #0.02 10e3/ulNormal0.00-0.03The [facility]'S HospitalComment on above:Performed By: #### PREG #### [facility] [address] [address] [address] Esthela Mcclellan %0.3 %Normal0.0-0.5The [facility] on above: Performed By: #### PREG #### [facility] [address] [address] [address] Esthela Rich #2.0 103/ulNormal1.2-3.8The [facility] HospitalCombaraga county memorial hospital on above:Performed By: #### PREG #### [facility] [address] [place] [address] Dr. Esthela Bonillahocytes/100 WBC (Bld)31.2 %Ewulpg98.5-60.0The [facility] on above:Performed By: #### PREG #### [facility] [address] [place] [address] Dr. Esthela LiangUAL DIFF REQNONormalThe [facility]'S HospitalComment on above: Performed By: #### PREG #### [facility] [address] [place] [address] Dr. Esthela Vanegas (RBC) [Entitic mass]27.1 xqQgnbgd30.7-34.0The [facility] on above:Performed By: #### PREG #### [facility] [address] [place] [address] Dr. Esthela Vanegas (RBC) [Mass/Vol]33.1 g/aOZvyqwk46.9-35.2The [facility] on above:Performed By: #### PREG #### [facility] [address] [place] [address] Dr. Esthela Vanegas (RBC) [Entitic vol]82.1 fXCmplnr80.0-99.0The [facility] on above:Performed By: #### PREG #### [facility] [address] [place] [address] Dr. Esthela Jackson #0.4 103/ulNormal0.3-0.8The [facility]S HospitalComment on above:Performed By: #### PREG #### [facility] [address] [place] [address] Dr. Esthela Chanocytes/100 WBC (Bld)6.4 %Normal1.7-12.0[facility] Comment on above:Performed By: #### PREG #### [facility] [address] [place] [address] Dr. Esthela AndersonUT #3.9 103/ulNormal1.4-6.5The [facility]'S HospitalComment on above:Performed By: #### PREG #### [facility] [address] [place] [address] Dr. Esthela Andersonutrophils/100 WBC (Bld)60.0 %Yqqpvy42.0-75.0The [facility]S HospitalComment on above:Performed By: #### PREG #### [facility] [address] [place] [address] Dr. Esthela StevensPlatelet mean volume (Bld) [Entitic vol]9.2 fLCritically low 9.5-13.5The [facility]S HospitalComment on above:Performed By: #### PREG #### [facility] [address] [place] [address] Dr. Esthela StevensPLT390 103/coRpweup702-536Cnu [facility] HospitalComment on above: Performed By: #### PREG #### [facility] [address] [place] [address] Dr. Esthela StevensRBC4.68 106/ulNormal4.20-5.40The [facility]S HospitalComment on above:Performed By: #### PREG #### [facility] [address] [place] [address] Dr. Esthela StevensWBC6.5 103/ulNormal4.0-11.0The [facility]S HospitalComment on above: Performed By: #### PREG #### [facility] [address] [place] [address] Dr. Esthela Jiang 42-59-8976LVP [Mass/Vol]mg/LNormal<=1.0The [facility] HospitalComment on above:Performed By: #### LIVER, LDH, BMP #### [facility] [address] [address] [address] Esthela Su THYROXINE INDEX T7on 63-79-4505SIX4.31Rhhtpp2.30-4.50The [facility]S HospitalComment on above:Performed By: #### LIVER, LDH, BMP #### [facility] [address] [address] [address] Esthela StevensT3U33.0 %Breeez32.0-39.0The [facility]'S HospitalComment on above: Performed By: #### LIVER, LDH, BMP #### [facility] [address] [address] [address] Esthela StevensT4 [Mass/Vol]8.90 ug/dLNormal4.80-13.90[facility] Comment on above:Performed By: #### LIVER, LDH, BMP #### [facility] [address] [place] [address] Dr. Esthela StevensGLYCOHEMOGLOBIN A1Con 28-31-4623HAZ RECOMMENDATIONSEE BELOWNormal The [facility]S HospitalComment on above:Result Comment: ADA RECOMMENDED LIMIT 4.0 - 6.0 ADA THERAPEUTIC TARGET < 7.0 ACTION SUGGESTED > 7.0Performed By: #### LIVER, LDH, BMP #### [facility] [address] [place] [address] Dr. Esthela StevensGlucose [Mass/Vol]111 mg/dLNormalThe [facility]S HospitalCombaraga county memorial hospital on above:Performed By: #### LIVER, LDH, BMP #### [facility] [address] [place] [address] Dr. Esthela StevensHbA1c (Bld) [Mass fraction]5.5 %Normal4.5-6.2The [facility]'S HospitalComment on above:Performed By: #### LIVER, LDH, BMP #### [facility] [address] [place] [address] Dr. Esthela Zacarias 45-94-7421Ddlo [Mass/Vol]34.0 ug/dLCritically low 50.0-170.0The [facility]S HospitalComment on above:Performed By: #### LIVER, LDH, BMP #### [facility] [address] [address] [address] Esthela StevensLIPID PROFILEon 92-62-4958CGQX-HDL RATIO NORMSRiverside Methodist HospitalCombaraga county memorial hospital on above:Result Comment: 3.3 - 4.4 LOW RISK 4.4 - 7.1 AVERAGE RISK 7.1 - 11.0 MODERATE RISK >11.0 HIGH RISKPerformed By: #### LIVER, LDH, BMP #### [facility] [address] [address] [address] Esthela StevensCholesterol [Mass/Vol]168 mg/dLNormal<=200[facility] Comment on above:Performed By: #### LIVER, LDH, BMP #### [facility] [address] [address] [address] Esthela StevensCholesterol in HDL [Mass/Vol]51 mg/wDXwpwwf56-42RrjTrinity Health System Twin City Medical CenterComment on above:Performed By: #### LIVER, LDH, BMP #### [facility] [address] [address] [address] Esthela StevensCholesterol in LDL [Mass/Vol]91.8 mg/dLAdena Pike Medical CenterCombaraga county memorial hospital on above:Performed By: #### LIVER, LDH, BMP #### [facility] [address] [address] [address] Esthela Deviesterdemarcus.total/Cholesterol in HDL [Mass ratio]3.3 {ratio} NormalTrinity Health System Twin City Medical CenterComment on above:Performed By: #### LIVER, LDH, BMP #### [facility] [address] [place] [address] Dr. Esthela Jimenez NORMAL> or = 60 mg/dl - LOW CARDIOVASCULAR RISK <40 mg/dl - HIGH CARDIOVASCULAR RISKMount St. [facility] on above:Performed By: #### LIVER, LDH, BMP #### [facility] [address] [place] [address] Dr. Esthela StevensLDL CALC NORMALSEE [facility] HospitalComment on above:Result Comment: <100 mg/dl OPTIMAL 100 - 129 mg/dl NEAR OR ABOVE OPTIMAL 130 - 159 mg/dl BORDERLINE HIGH 160 - 189 mg/dl HIGH >190 mg/dl VERY HIGH Performed By: #### LIVER, LDH, BMP #### [facility] [address] [address] [address] Esthela StevensTriglyceride [Mass/Vol]126 mg/dLNormal<=150The [facility] Comment on above:Performed By: #### LIVER, LDH, BMP #### [facility] [address] [address] [address] Esthela StevensVLDL CALC25.2 mg/dLNormalThe [facility]S HospitalComment on above: Performed By: #### LIVER, LDH, BMP #### [facility] [address] [place] [address] Dr. Esthela Walker 14(COMP METB)on 83-07-8957Bhvawbj [Mass/Vol]4.2 g/dLNormal 3.4-5.0The [facility] HospitalComment on above:Performed By: #### LIVER, LDH, BMP #### [facility] [address] [place] [address] Dr. Esthela StevensAlbumin/Globulin [Mass ratio]1.1 {ratio}NormalThe [facility]'S HospitalComment on above:Performed By: #### LIVER, LDH, BMP #### [facility] [address] [place] [address] Dr. Esthela Pinedo [Catalytic activity/Vol]74 U/RGgzrtg46-974Apk [facility] HospitalComment on above:Performed By: #### LIVER, LDH, BMP #### [facility] [address] [address] [address] Esthela Saenz [Catalytic activity/Vol]57 U/PNiikcl43-77Vmq [facility] HospitalComment on above:Performed By: #### LIVER, LDH, BMP #### [facility] [address] [place] [address] Dr. Esthela Smith gap [Moles/Vol]15.0 mmol/LNormalThe [facility] Comment on above:Performed By: #### LIVER, LDH, BMP #### [facility] [address] [place] [address] Dr. Esthela StevensAST [Catalytic activity/Vol]25 U/ZKsinsm97-67Afr [facility] HospitalComment on above:Performed By: #### LIVER, LDH, BMP #### [facility] [address] [place] [address] Dr. Esthela StevesnBilirubin [Mass/Vol]0.4 mg/dLNormal0.2-1.0The [facility] Comment on above:Performed By: #### LIVER, LDH, BMP #### [facility] [address] [place] [address] Dr. Esthela StevensCalcium [Mass/Vol]9.4 mg/dLNormal8.5-10.1[facility] Comment on above:Performed By: #### LIVER, LDH, BMP #### [facility] [address] [place] [address] Dr. Esthela StevensChloride [Moles/Vol]102 mmol/YXanbee49-809Avp [facility] Comment on above:Performed By: #### LIVER, LDH, BMP #### [facility] [address] [place] [address] Dr. Esthela StevensCO2 [Moles/Vol]27.0 mmol/VSwuezk31.0-32.0The [facility] Comment on above:Performed By: #### LIVER, LDH, BMP #### [facility] [address] [place] [address] Dr. Esthela StevensCreatinine [Mass/Vol]0.61 mg/dLNormal0.55-1.02The [facility] HospitalComment on above:Performed By: #### LIVER, LDH, BMP #### [facility] [address] [place] [address] Dr. Esthela RicciGFR-AF ECUADOREAN>60Normal>=60The [facility] HospitalComment on above:Performed By: #### LIVER, LDH, BMP #### [facility] [address] [place] [address] Dr. Yilan ChangEGFR-NON AF ECUADOREAN>60Normal>=60The [facility] HospitalComment on above:Performed By: #### LIVER, LDH, BMP #### [facility] [address] [place] [address] Dr. Esthela StevensGlobulin (S) [Mass/Vol]3.7 g/dLNormBellevue HospitalComment on above:Performed By: #### LIVER, LDH, BMP #### [facility] [address] [place] [address] Dr. Esthela StevensGlucose [Mass/Vol]88 mg/tBIgxsnu94-444Fkx [facility] Comment on above:Performed By: #### LIVER, LDH, BMP #### [facility] [address] [place] [address] Dr. Esthela StevensPotassium [Moles/Vol]4.0 mmol/LNormal3.5-5.1The [facility] Comment on above:Performed By: #### LIVER, LDH, BMP #### [facility] [address] [place] [address] Dr. Esthela StevensProtein [Mass/Vol]7.9 g/dLNormal6.4-8.2[facility] Comment on above:Performed By: #### LIVER, LDH, BMP #### [facility] [address] [place] [address] Dr. Esthela StevensSodium [Moles/Vol]140 mmol/YShldis564-495StbTrinity Health [facility] Comment on above:Performed By: #### LIVER, LDH, BMP #### [facility] [address] [place] [address] Dr. Esthela StevensUrea nitrogen [Mass/Vol]4.0 mg/dLCritically low7.0-18.0The [facility] HospitalComment on above:Performed By: #### LIVER, LDH, BMP #### [facility] [address] [place] [address] Dr. Esthela Jaquez nitrogen/Creatinine [Mass ratio]6.6 mg/mgNoSelect Medical Specialty Hospital - YoungstownComment on above:Performed By: #### LIVER, LDH, BMP #### [facility] [address] [place] [address] Dr. Esthela StevensTSHofreddie 96-28-8733OSJ1.348 uIU/mLNormal0.358-3.740[facility] on above:Performed By: #### LIVER, LDH, BMP #### [facility] [address] [place] [address] Dr. Esthela StevensURIC ACID SERUMon 11-92-2504Tpmrz [Mass/Vol]4.4 mg/dLNormal 2.6-6.0The [facility] on above:Performed By: #### LIVER, LDH, BMP #### [facility] [address] [place] [address] Dr. Esthela StevensVITAMIN D 25 OHon 65-27-7987XGP D 25-OH18.0 ng/mLNormalThe [facility] on above:Performed By: #### LIVER, LDH, BMP #### [facility] [address] [place] [address] Dr. Esthela Leblanc [facility]ERE [facility] HospitalCombaraga county memorial hospital on above: Result Comment: <20 ng/mL Vit D deficient 20 - <30 ng/mL Vit D insufficient 30 - 100 ng/mL Vit D sufficient >100 ng/mL Potential ToxicityPerformed By: #### LIVER, LDH, BMP #### [facility] [address] [place] [address] Dr. Esthela Diaz PROFILEon 53-25-9497Cuwzhus [Mass/Vol]3.9 g/dLNormal3.4-5.0 The [facility] on above:Performed By: #### LIVER, LDH, BMP #### [facility] [address] [place] [address] Dr. Esthela StevensAlbumin/Globulin [Mass ratio]1.0 {ratio}NormalThe [facility] on above:Performed By: #### LIVER, LDH, BMP #### [facility] [address] [place] [address] Dr. Esthela StevensALP [Catalytic activity/Vol]70 U/QQdkrxy59-830Aow Austin HospitalComment on above:Performed By: #### LIVER, LDH, BMP #### [facility] [address] [place] [address] Dr. Esthela Saenz [Catalytic activity/Vol]44 U/MSgdfju83-25Zyx [facility] HospitalComment on above:Performed By: #### LIVER, LDH, BMP #### [facility] [address] [place] [address] Dr. Esthela Perez [Catalytic activity/Vol]22 U/WDbsqrg95-31Jst [facility] HospitalComment on above:Performed By: #### LIVER, LDH, BMP #### [facility] [address] [place] [address] Dr. Esthela Andrews, CONJUGATED0.1 mg/dLNormal0.0-0.2[facility] Comment on above:Performed By: #### LIVER, LDH, BMP #### [facility] [address] [place] [address] Dr. Esthela De La Cruzirubin [Mass/Vol]0.3 mg/dLNormal0.2-1.0[facility] Comment on above:Performed By: #### LIVER, LDH, BMP #### [facility] [address] [place] [address] Dr. Esthela StevensGlobulin (S) [Mass/Vol]3.9 g/dLNormalThe [facility] HospitalCombaraga county memorial hospital on above:Performed By: #### LIVER, LDH, BMP #### [facility] [address] [place] [address] Dr. Esthela StevensProtein [Mass/Vol]7.8 g/dLNormal6.4-8.2The [facility] Comment on above:Performed By: #### LIVER, LDH, BMP #### [facility] [address] [place] [address] Dr. Esthela Pérez/GFRon 85-20-7115Aplihrkjps [Mass/Vol]0.85 mg/dL0.50 - 1.20 mg/dLU Wilson Memorial HospitalGFR/1.73 sq M.predicted CKD-EPI (S/P/Bld) [Vol rate/Area]- PINFOSU [facility]xner Medical CenterComment on above:Reported eGFR is based on the CKD-EPI 2020 equation using creatinine, age, and sex.Interpretation and review of laboratory resultsNoKettering Health Greene MemorialTest performed at address of the patient encounter.[facility] HospitalOSU Wilson Memorial HospitalPT Skull base to mid-thighon [id number]: No definite evidence of somatostatin receptor avid malignancy. 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 CT DOSE: DLP: 554 mGy x cm kVp: 120 TECHNIQUE: Approximately 70 minutes following the injection of 4.1 mCi of Gallium-68 Dotatate, the patient was positioned on the Siemens Androcialgraph mCT TOF< PET/CT-64, Tera imaging unit. A [...] uterus. Musculoskeletal: Normal uptake within the bones. RADIOLOGYHawa Pichardo MD - 08/19/2022 EXAM: NUC PET [...] definite evidence of somatostatin receptor avid malignancy. [facility] HospitalRadiology Study observation (narrative)[facility] HospitalPT Skull base to mid-thighOrdered By: Hawa Pichardo on [id number] McCullough-[facility]de Memorial Hospital Work Phone: [facility] AUTO DIFFon [id number] #0.1 103/ulNormal 0.0-0.1[facility] Medical CenterComment on above:Performed By: #### LIVER, LDH, BMP #### [facility] [address] [place] [address] Dr. Esthela StevensBasophils/100 WBC (Bld)1.0 %Normal0.2-2.0[facility] Comment on above:Performed By: #### LIVER, LDH, BMP #### [facility] [address] [place] [address] Dr. Esthela Alexis #0.1 103/ulNormal0.0-0.7The [facility]S HospitalComment on above: Performed By: #### LIVER, LDH, BMP #### [facility] [address] [place] [address] Dr. Esthela Ricciosinophils/100 WBC (Bld)1.6 %Normal0.9-7.0The [facility] Comment on above:Performed By: #### LIVER, LDH, BMP #### [facility] [address] [place] [address] Dr. Esthela Riccirythrocyte distribution width (RBC) [Ratio]12.5 %Hufnzy87.0-15.0 The [facility]S HospitalComment on above:Performed By: #### LIVER, LDH, BMP #### [facility] [address] [place] [address] Dr. Esthela StevensHematocrit (Bld) [Volume fraction]40.1 %Sceqbh69.0-48.0The [facility] HospitalComment on above:Performed By: #### LIVER, LDH, BMP #### [facility] [address] [place] [address] Dr. Esthela StevensHemoglobin (Bld) [Mass/Vol]12.3 g/aLEdplbf32.0-16.0The [facility] HospitalComment on above:Performed By: #### LIVER, LDH, BMP #### [facility] [address] [place] [address] Dr. Esthela Mcclellan #0.01 10e3/ulNormal0.00-0.03The [facility] HospitalCombaraga county memorial hospital on above:Performed By: #### LIVER, LDH, BMP #### [facility] [address] [place] [address] Dr. Esthela Mcclellan %0.2 %Normal0.0-0.5The [facility] HospitalCombaraga county memorial hospital on above: Performed By: #### LIVER, LDH, BMP #### [facility] [address] [place] [address] Dr. Esthela Rich #1.8 103/ulNormal1.2-3.8The [facility] HospitalComment on above:Performed By: #### LIVER, LDH, BMP #### [facility] [address] [place] [address] Dr. Esthela Bonillahocytes/100 WBC (Bld)28.0 %Pcpcra55.5-60.0The Memorial Hospitalment on above:Performed By: #### LIVER, LDH, BMP #### [facility] [address] [place] [address] Dr. Esthela Sutton DIFF REQNONormalThe [facility]S HospitalComment on above: Performed By: #### LIVER, LDH, BMP #### [facility] [address] [place] [address] Dr. Esthela Vanegas (RBC) [Entitic mass]26.8 jqMaqpqc11.7-34.0The [facility] HospitalComment on above:Performed By: #### LIVER, LDH, BMP #### [facility] [address] [place] [address] Dr. Esthela Vanegas (RBC) [Mass/Vol]30.7 g/sQGkxnpx66.9-35.2The [facility] HospitalComment on above:Performed By: #### LIVER, LDH, BMP #### [facility] [address] [place] [address] Dr. Esthela Vanegas (RBC) [Entitic vol]87.4 zEOxvfjs57.0-99.0The [facility] HospitalComment on above:Performed By: #### LIVER, LDH, BMP #### [facility] [address] [place] [address] Dr. Esthela Jackson #0.6 103/ulNormal0.3-0.8The [facility] HospitalComment on above:Performed By: #### LIVER, LDH, BMP #### [facility] [address] [place] [address] Dr. Esthela Chanocytes/100 WBC (Bld)9.4 %Normal1.7-12.0The [facility] Comment on above:Performed By: #### LIVER, LDH, BMP #### [facility] [address] [place] [address] Dr. Esthela Bonner #3.8 103/ulNormal1.4-6.5The [facility] HospitalComment on above:Performed By: #### LIVER, LDH, BMP #### [facility] [address] [place] [address] Dr. Esthela Andersonutrophils/100 WBC (Bld)59.8 %Jwaccq39.0-75.0The [facility] HospitalComment on above:Performed By: #### LIVER, LDH, BMP #### [facility] [address] [place] [address] Dr. Esthela Pressleylet mean volume (Bld) [Entitic vol]9.6 fLNormal9.5-13.5The [facility] HospitalComment on above:Performed By: #### LIVER, LDH, BMP #### [facility] [address] [place] [address] Dr. Esthela StevensPLT341 103/zgNzisec566-975Ykg [facility] HospitalComment on above: Performed By: #### LIVER, LDH, BMP #### [facility] [address] [place] [address] Dr. Esthela StevensRBC4.59 106/ulNormal4.20-5.40The [facility] on above:Performed By: #### LIVER, LDH, BMP #### [facility] [address] [place] [address] Dr. Esthela StevensWBC6.3 103/ulNormal4.0-11.0The [facility] HospitalComment on above: Performed By: #### LIVER, LDH, BMP #### [facility] [address] [place] [address] Dr. Esthela StevensCT ABD/PELV W CONon [id number] ABD/PELV W CONINDICATION: ABDOMINAL DISTENSION (GASEOUS) EXAMINATION: CT ABDOMEN AND PELVIS WITH CONTRAST TECHNIQUE: Helically acquired images were obtained of the abdomen and pelvis following intravenous administration of iodinated contrast. A radiation dose optimization technique was used for this scan. ENTERIC CONTRAST: None. COMPARISON: 02/03/2022 FINDINGS: LOWER CHEST: The visualized portions of [...] Electronically authenticated by: TIMMY SHAY Date: 2022-08-12 17:04A[facility]ike Medical CenterCULTURE URINEon [id number] URINECulture Observations: MODERATE GROWTH OF MIXED GENITAL SUNITA. NO POTENTIAL PATHOGENS SEEN.NormalThe Austin HospitalComment on above:Performed By: #### LIVER, LDH, BMP #### [facility] [address] [place] [address] Dr. Proctor ChangEWillam URINE PROFILEon 24-47-6799Jxkjjfqko Ql (U)NegativeNormal NEGATIVEThe [facility] HospitalComment on above:Performed By: #### PREG #### [facility] [address] [place] [address] Dr. Proctor ChangClarity (U)CLEARNormalCLEARThe [facility] HospitalComment on above: Performed By: #### PREG #### [facility] [address] [place] [address] Dr. Esthela Alvarengalor (U)LT. YELLOWNormalYELLOWTrinity Health System [facility] Medical CenterComment on above:Performed By: #### PREG #### [facility] [address] [place] [address] Dr. Esthela Sweeney micrscopic examination will be performed if indicated. NormalThe Austin HospitalComment on above:Performed By: #### PREG #### [facility] [address] [address] [address] Esthela StevensGlucose Ql (U)NegativeNormalNEGATIVETrinity Health System Twin City Medical CenterComment on above:Performed By: #### PREG #### [facility] [address] [address] [address] Esthela StevensHemoglobin Ql (U)NegativeNormalNEGATIVESelect Medical Specialty [facility], Inc on above:Performed By: #### PREG #### [facility] [address] [place] [address] Dr. Esthela StevensKetones Ql (U)NegativeNormalNEGATIVETrinity Health System [facility] Medical CenterComment on above:Performed By: #### PREG #### [facility] [address] [place] [address] Dr. Esthela StevensLEUKOCYTESSMALLAbnormalNEGATIVETrinity Health System [facility] Medical CenterCombaraga county memorial hospital on above:Performed By: #### PREG #### [facility] [address] [place] [address] Dr. Esthela StevensNitrite Ql (U)NegativeNormalNEGATIVETrinity Health System Twin [facility] Medical CenterComment on above:Performed By: #### PREG #### [facility] [address] [place] [address] Dr. Esthela StevenspH (U)7.0 [pH]Normal5-9[facility] Medical CenterComment on above: Performed By: #### PREG #### [facility] [address] [address] [address] Esthela StevensSPEC GRAVITY1.364Qlnmbv6.005-<=1.025The [facility]S HospitalComment on above:Performed By: #### PREG #### [facility] [address] [place] [address] Dr. Esthela Anna PROTEINNegativeNormalNEGATIVE/ TRACEThe [facility] Comment on above:Performed By: #### PREG #### [facility] [address] [place] [address] Dr. Esthela Cassidy MICRO INDINDICATEDNormalThe [facility]S HospitalComment on above: Performed By: #### PREG #### [facility] [address] [place] [address] Dr. Esthela StevensUrobilinogen Qn (U)0.2 {Emeka'U}/dLNormal0.2 - 1.0The [facility] HospitalComment on above:Performed By: #### PREG #### [facility] [address] [place] [address] Dr. Esthela StevensLIPASEon 27-26-8464Magrhq [Catalytic activity/Vol]75.0 U/LNormal 73.0-393.0The [facility] HospitalComment on above:Performed By: #### PREG #### [facility] [address] [place] [address] Dr. Esthela StevensPREGNANCY URon 26-30-6778SXOSTLYXH, QUALNegativeNormalNEGATIVEThe [facility] HospitalComment on above:Performed By: #### PREG #### [facility] [address] [place] [address] Dr. Esthela StevensPROF 14(COMP METB)on 98-48-5681Yquzfvo [Mass/Vol]4.0 g/dLNormal 3.4-5.0The [facility] HospitalComment on above:Performed By: #### PREG #### [facility] [address] [place] [address] Dr. Esthela StevensAlbumin/Globulin [Mass ratio]1.1 {ratio}NormalThe [facility] HospitalComment on above:Performed By: #### PREG #### [facility] [address] [place] [address] Dr. Esthela JeanP [Catalytic activity/Vol]73 U/AWgmgfw62-769Fjb [facility] HospitalComment on above:Performed By: #### PREG #### [facility] [address] [address] [address] Esthela JeanT [Catalytic activity/Vol]82 U/LCritically bbfa00-94Htj [facility] HospitalComment on above:Performed By: #### PREG #### [facility] [address] [address] [address] Esthela StevensAnion gap [Moles/Vol]12.0 mmol/LNormalThe [facility] Comment on above:Performed By: #### PREG #### [facility] [address] [address] [address] Esthela StevensAST [Catalytic activity/Vol]33 U/ZYfjkrj03-26Pxj [facility] HospitalComment on above:Performed By: #### PREG #### [facility] [address] [address] [address] Esthela StevensBilirubin [Mass/Vol]0.2 mg/dLNormal0.2-1.0The [facility] Comment on above:Performed By: #### PREG #### [facility] [address] [address] [address] Esthela StevensCalcium [Mass/Vol]9.4 mg/dLNormal8.5-10.1The [facility] Comment on above:Performed By: #### PREG #### [facility] [address] [address] [address] Esthela StevensChloride [Moles/Vol]102 mmol/KJnqnmy66-847Xak [facility] Comment on above:Performed By: #### PREG #### [facility] [address] [address] [address] Esthela StevensCO2 [Moles/Vol]27.8 mmol/EEladxp99.0-32.0The [facility] Comment on above:Performed By: #### PREG #### [facility] [address] [address] [address] Esthela StevensCreatinine [Mass/Vol]0.69 mg/dLNormal0.55-1.02The [facility] HospitalComment on above:Performed By: #### PREG #### [facility] [address] [address] [address] Esthela RicciGFR-AF ECUADOREAN>60Normal>=60The [facility] HospitalComment on above:Performed By: #### PREG #### [facility] [address] [address] [address] Esthela RicciGFR-NON AF ECUADOREAN>60Normal>=60The [facility] HospitalComment on above:Performed By: #### PREG #### [facility] [address] [address] [address] Esthela StevensGlobulin (S) [Mass/Vol]3.5 g/dLNormalThe [facility] HospitalComment on above:Performed By: #### PREG #### [facility] [address] [place] [address] Dr. Esthela StevensGlucose [Mass/Vol]109 mg/dLCritically iojr64-232Sgc [facility] HospitalComment on above:Performed By: #### PREG #### [facility] [address] [place] [address] Dr. Esthela StevensPotassium [Moles/Vol]3.8 mmol/LNormal3.5-5.1The [facility] Comment on above:Performed By: #### PREG #### [facility] [address] [place] [address] Dr. Esthela StevensProtein [Mass/Vol]7.5 g/dLNormal6.4-8.2The [facility] Comment on above:Performed By: #### PREG #### [facility] [address] [place] [address] Dr. Esthela StevensSodium [Moles/Vol]138 mmol/MZgftdq637-061Ikq [facility] Comment on above:Performed By: #### PREG #### [facility] [address] [place] [address] Dr. Esthela StevensUrea nitrogen [Mass/Vol]6.0 mg/dLCritically low7.0-18.0The [facility] HospitalComment on above:Performed By: #### PREG #### [facility] [address] [place] [address] Dr. Esthela StevensUrea nitrogen/Creatinine [Mass ratio]8.7 mg/mgNoSelect Medical Specialty Hospital - YoungstownComment on above:Performed By: #### PREG #### [facility] [address] [address] [address] Esthela Bhatia MICROSCOPIC ONLYon 71-24-0227MORXVMGPUKYXEYyqzigzfHJIG SEEN [facility] on above:Performed By: #### PREG #### [facility] [address] [address] [address] Esthela Wolfe identified Cx Nom (U)INDICATEDAdena Pike Medical CenterComment on above:Performed By: #### PREG #### [facility] [address] [place] [address] Dr. Esthela Beard SEENNormalNONE SEENCincinnati VA Medical Center on above:Performed By: #### PREG #### [facility] [address] [place] [address] Dr. Esthela Patelystals LM Nom (Urine sed)NONE SEENNormalNONE SEENCincinnati VA Medical Center on above:Performed By: #### PREG #### [facility] [address] [place] [address] Dr. Esthela Riccipithelial cells LM Ql (Urine sed)MODERATEAbnormalNONE SEEN /RARE The [facility] HospitalCombaraga county memorial hospital on above:Performed By: #### PREG #### [facility] [address] [place] [address] Dr. Esthela AlmonteNONE SEENNormalNONE SEENCincinnati VA Medical Center on above:Performed By: #### PREG #### [facility] [address] [address] [address] Esthela Stinson SEENAbnormal0-2[facility] on above: Performed By: #### PREG #### [facility] [address] [address] [address] Esthela StevensWBC2-5AbnormalNONE SEENCincinnati VA Medical Center on above: Performed By: #### PREG #### [facility] [address] [place] [address] Dr. Esthela Hanson ACOG PANEL 2: 21 to 29on 08-11-2022..NormalTrinity Health System Twin City Medical CenterCombaraga county memorial hospital on above:Performed By: #### [id number] #### [facility] [address] [place] [address] Dr. Esthela Napier Gdln ACOG Jfigbwy65-59GmvhapSgvSelect Medical Specialty Hospital - YoungstownComment on above:Performed By: #### [id number] #### [facility] [address] [place] [address] Dr. Esthela StevensDIAGNOSIS:CommentAbMarietta Memorial Hospital on above: Result Comment: EPITHELIAL CELL ABNORMALITY. ATYPICAL SQUAMOUS CELLS OF UNDETERMINED SIGNIFICANCE (ASC-US).Performed By: #### [id number] #### [facility] [address] [place] [address] Dr. Proctor ChangElectronically signed by:CommentAdena Pike Medical Center Comment on above:Result Comment: Ginger Moncada MD, PathologistPerformed By: #### [id number] #### [facility] [address] [place] [address] Dr. Esthela StevensHPV AptimaNegativeNormalNegativeCincinnati VA Medical Center on above:Result Comment: This nucleic acid amplification test detects fourteen high-risk HPV types (16,18,31,33,35,39,45,51,52,56,58,59,66,68) without differentiation.Performed By: #### [id number] #### [facility] [address] [place] [address] Dr. Esthela StevensMethodology:CommentMount St. Mary Hospital on above: Result Comment: This liquid based ThinPrep(R) pap test was screened with the use of an image guided system.Performed By: #### [id number] #### [facility] [address] [place] [address] Dr. Esthela StevensNote:CommentMount St. Mary Hospital on above:Result Comment: The Pap smear is a screening test designed to aid in the detection of premalignant and malignant conditions of the uterine cervix. It is not a diagnostic procedure and should not be used as the sole means of detecting cervical cancer. Both false-positive and false-negative reports do occur. .Performed By: #### [id number] #### [facility] [address] [place] [address] Dr. Esthela StevensPathologist Provided FUJ12DnwqkrfEdvcrwVflAdena Pike Medical Center Comment on above:Result Comment: R87.610Performed By: #### [id number] #### [facility] [address] [place] [address] Dr. Esthela StevensPerformed by:CommentNoOhioHealth O'Bleness Hospital on above: Result Comment: Yoselyn Ardon, Rubber Tile Floor Layer (ASCP)Performed By: #### [id number] #### [facility] [address] [place] [address] Dr. Esthela StevensReflex Criteria:CommentMount St. Mary Hospital on above:Result Comment: See below for HPV testing results. .Performed By: #### [id number] #### [facility] [address] [place] [address] Dr. Esthela StevensSpecimen adequacy:[facility] on above:Result Comment: Satisfactory for evaluation. Endocervical and/or squamous metaplastic cells (endocervical component) are present.Performed By: #### [id number] #### [facility] [address] [place] [address] Dr. Esthela StevensGI PANEL (PCR)on [id number] F 40/41Not detectedNormal NOT DETECTEDThe [facility]S HospitalComment on above:Performed By: #### PREG #### [facility] [address] [place] [address] Dr. Esthela StevensAstrovirusNot detectedNormalNOT DETECTEDThe [facility] Comment on above:Performed By: #### PREG #### [facility] [address] [place] [address] Dr. Esthela Downing. Diff toxin A/BDetectedCritically abnormalNOT DETECTEDThe [facility] HospitalComment on above:Performed By: #### PREG #### [facility] [address] [address] [address] Esthela SuozalobacterNot detectedNormalNOT DETECTEDThe [facility] Comment on above:Performed By: #### PREG #### [facility] [address] [address] [address] Esthela PatelyptosporidiumNot detectedNormalNOT DETECTEDThe [facility] HospitalComment on above:Performed By: #### PREG #### [facility] [address] [address] [address] Esthela Wilsonos. CayetanensisNot detectedNormalNOT DETECTEDThe [facility] HospitalComment on above:Performed By: #### PREG #### [facility] [address] [address] [address] Esthela Castellanos Coli Y902Rhx ApplicableNormalNot ApplicableThe [facility]S HospitalComment on above:Performed By: #### PREG #### [facility] [address] [address] [address] Esthela Ricci. histolyticaNot detectedNormalNOT DETECTEDThe [facility] Comment on above:Performed By: #### PREG #### [facility] [address] [address] [address] Esthela RicciAECNpetros detectedNormalNOT DETECTEDThe [facility] HospitalCombar[facility] on above:Performed By: #### PREG #### [facility] [address] [address] [address] Esthela RicciIECNot detectedNormalNOT DETECTEDThe [facility] HospitalCombaraga [facility] on above:Performed By: #### PREG #### [facility] [address] [address] [address] Esthela RicciPECNot detectedNormalNOT DETECTEDThe [facility] HospitalCombaraga [facility] on above:Performed By: #### PREG #### [facility] [address] [address] [address] Esthela RicciTECNpetros detectedNormalNOT DETECTEDThe [facility] HospitalComment on above:Performed By: #### PREG #### [facility] [address] [address] [address] Esthela Ervin LambliaNot detectedNormalNOT DETECTEDTrinity Health [facility] Comment on above:Performed By: #### PREG #### [facility] [address] [address] [address] Esthela Esparza CONTROLSPASSSelect Medical Specialty Hospital - Boardman, IncComment on above:Performed By: #### PREG #### [facility] [address] [address] [address] Esthela WEBB HEADERGI PANEL [facility] Comment on above:Performed By: #### PREG #### [facility] [address] [address] [address] Esthela Hyman ECOLIGI PANEL DIARRHEAGENIC E.COLI / SHIGELLAAdena Pike Medical CenterComment on above:Performed By: #### PREG #### [facility] [address] [place] [address] Dr. Esthela Hyman INFOSEE [facility]in Memorial HospitalComment on above: Result Comment: EAEC- Enteroaggregative E. Coli EPEC- Enteropathogenic E. Coli ETEC- Enterotoxigenic E. Coli lt/st STEC- Shigella-like toxin-producing E. Coli stx1/stx2 EIEC- Shigella/Enteroinvasive E. ColiPerformed By: #### PREG #### [facility] [address] [place] [address] Dr. Esthela Hyman PARASITESGI PANEL PARASITESAdena Pike Medical Center Comment on above:Performed By: #### PREG #### [facility] [address] [address] [address] Esthela Hyman VIRUSGI PANEL VIRUSESAdena Pike Medical CenterComment on above:Performed By: #### PREG #### [facility] [address] [address] [address] Esthela Duranvirus GI/GIINot detectedNormalNOT DETECTEDTrinity Health System Twin City Medical CenterComment on above:Performed By: #### PREG #### [facility] [address] [place] [address] Dr. Esthela Mack. ShigelloidesNot detectedNormalNOT DETECTEDThe [facility]S HospitalComment on above:Performed By: #### PREG #### [facility] [address] [place] [address] Dr. Esthela StevensRotavirus ANot detectedNormalNOT DETECTEDThe [facility] Comment on above:Performed By: #### PREG #### [facility] [address] [address] [address] Esthela StevensSalmonellaNot detectedNormalNOT DETECTEDThe [facility] Comment on above:Performed By: #### PREG #### [facility] [address] [place] [address] Dr. Esthela StevensSapovirusNot detectedNormalNOT DETECTEDThe [facility] Comment on above:Performed By: #### PREG #### [facility] [address] [place] [address] Dr. Esthela StevensSTECNot detectedNormalNOT DETECTEDThe [facility]S HospitalComment on above:Performed By: #### PREG #### [facility] [address] [place] [address] Dr. Esthela HilariobrioNot detectedNormalNOT DETECTEDThe [facility] HospitalComment on above:Performed By: #### PREG #### [facility] [address] [place] [address] Dr. Esthela Sarmientoio CholeraNot detectedNormalNOT DETECTEDTrinity Health [facility] Comment on above:Performed By: #### PREG #### [facility] [address] [place] [address] Dr. Esthela De Santiago. EnterocoliticaNot detectedNormalNOT DETECTEDThe [facility]S HospitalComment on above:Performed By: #### PREG #### [facility] [address] [place] [address] Dr. Esthela Saunders AUTO DIFFon [id number] #0.1 103/ulNormal0.0-0.1The [facility]S HospitalComment on above:Performed By: #### LIVER, LDH, BMP #### [facility] [address] [place] [address] Dr. Esthela StevensBasophils/100 WBC (Bld)0.6 %Normal0.2-2.0The [facility] Comment on above:Performed By: #### LIVER, LDH, BMP #### [facility] [address] [place] [address] Dr. Esthela Alexis #0.5 103/ulNormal0.0-0.7The [facility]S HospitalComment on above: Performed By: #### LIVER, LDH, BMP #### [facility] [address] [place] [address] Dr. Esthela Ricciosinophils/100 WBC (Bld)4.3 %Normal0.9-7.0The [facility] Comment on above:Performed By: #### LIVER, LDH, BMP #### [facility] [address] [place] [address] Dr. Esthela Riccirythrocyte distribution width (RBC) [Ratio]13.0 %Lwookq26.0-15.0 The [facility]S HospitalComment on above:Performed By: #### LIVER, LDH, BMP #### [facility] [address] [place] [address] Dr. Esthela StevensHematocrit (Bld) [Volume fraction]33.6 %Critically low36.0-48.0 The [facility]S HospitalComment on above:Performed By: #### LIVER, LDH, BMP #### [facility] [address] [place] [address] Dr. Esthela StevensHemoglobin (Bld) [Mass/Vol]10.9 g/dLCritically low12.0-16.0[facility] Medical CenterComment on above:Performed By: #### LIVER, LDH, BMP #### [facility] [address] [place] [address] Dr. Esthela Mcclellan #0.05 10e3/ulCritically high0.00-0.03The [facility] Comment on above:Performed By: #### LIVER, LDH, BMP #### [facility] [address] [place] [address] Dr. Esthela Mcclellan %0.5 %Normal0.0-0.5The [facility]S HospitalComment on above: Performed By: #### LIVER, LDH, BMP #### [facility] [address] [place] [address] Dr. Esthela Rich #2.4 103/ulNormal1.2-3.8The [facility]S HospitalComment on above:Performed By: #### LIVER, LDH, BMP #### [facility] [address] [place] [address] Dr. Esthela Bonillahocytes/100 WBC (Bld)22.4 %Azfkkl31.5-60.0The [facility]S HospitalComment on above:Performed By: #### LIVER, LDH, BMP #### [facility] [address] [place] [address] Dr. Esthela Sutton DIFF REQNONormalThe [facility]S HospitalComment on above: Performed By: #### LIVER, LDH, BMP #### [facility] [address] [place] [address] Dr. Esthela Fernando (RBC) [Entitic mass]26.9 aqNyahzz62.7-34.0The [facility]S HospitalComment on above:Performed By: #### LIVER, LDH, BMP #### [facility] [address] [place] [address] Dr. Esthela Vanegas (RBC) [Mass/Vol]32.4 g/uZUbtxep22.9-35.2The [facility]S HospitalComment on above:Performed By: #### LIVER, LDH, BMP #### [facility] [address] [place] [address] Dr. Esthela Vanegas (RBC) [Entitic vol]83.0 rIEnjhng68.0-99.0The [facility]S HospitalComment on above:Performed By: #### LIVER, LDH, BMP #### [facility] [address] [place] [address] Dr. Esthela Jackson #0.8 103/ulNormal0.3-0.8The [facility] HospitalComment on above:Performed By: #### LIVER, LDH, BMP #### [facility] [address] [place] [address] Dr. Esthela Chanocytes/100 WBC (Bld)7.1 %Normal1.7-12.0The [facility] Comment on above:Performed By: #### LIVER, LDH, BMP #### [facility] [address] [place] [address] Dr. Esthela AndersonUT #7.0 103/ulCritically high1.4-6.5The [facility] Comment on above:Performed By: #### LIVER, LDH, BMP #### [facility] [address] [place] [address] Dr. Esthela Andersonutrophils/100 WBC (Bld)65.1 %Ziryak16.0-75.0The [facility]S HospitalComment on above:Performed By: #### LIVER, LDH, BMP #### [facility] [address] [place] [address] Dr. Esthela Pressleylet mean volume (Bld) [Entitic vol]8.9 fLCritically low 9.5-13.5The [facility]S HospitalComment on above:Performed By: #### LIVER, LDH, BMP #### [facility] [address] [place] [address] Dr. Esthela WhitakerT519 103/ulCritically efkd219-674Xoy [facility] HospitalComment on above:Performed By: #### LIVER, LDH, BMP #### [facility] [address] [place] [address] Dr. Esthela StevensRBC4.05 106/ulCritically low4.20-5.40The [facility]S HospitalComment on above:Performed By: #### LIVER, LDH, BMP #### [facility] [address] [place] [address] Dr. Esthela StevensWBC10.8 103/ulNormal4.0-11.0The [facility]S HospitalComment on above:Performed By: #### LIVER, LDH, BMP #### [facility] [address] [place] [address] Dr. Esthela Walker 14(COMP METB)on 63-35-3120Cohmkkc [Mass/Vol]3.7 g/dLNormal 3.4-5.0The [facility]S HospitalComment on above:Performed By: #### LIVER, LDH, BMP #### [facility] [address] [place] [address] Dr. Esthela StevensAlbumin/Globulin [Mass ratio]1.0 {ratio}NormalThe [facility]'S HospitalComment on above:Performed By: #### LIVER, LDH, BMP #### [facility] [address] [address] [address] Esthela JeanP [Catalytic activity/Vol]75 U/WThcggj35-928Jqi [facility] HospitalComment on above:Performed By: #### LIVER, LDH, BMP #### [facility] [address] [place] [address] Dr. Esthela Saenz [Catalytic activity/Vol]95 U/LCritically ysok27-32Cbp [facility] HospitalComment on above:Performed By: #### LIVER, LDH, BMP #### [facility] [address] [place] [address] Dr. Esthela Smith gap [Moles/Vol]13.4 mmol/LNormalThe [facility] Comment on above:Performed By: #### LIVER, LDH, BMP #### [facility] [address] [place] [address] Dr. Esthela StevensAST [Catalytic activity/Vol]31 U/WSlsbrp68-37Grd [facility] HospitalComment on above:Performed By: #### LIVER, LDH, BMP #### [facility] [address] [place] [address] Dr. Esthela StevensBilirubin [Mass/Vol]0.1 mg/dLCritically low0.2-1.0The [facility] HospitalComment on above:Performed By: #### LIVER, LDH, BMP #### [facility] [address] [place] [address] Dr. Esthela StevensCalcium [Mass/Vol]9.3 mg/dLNormal8.5-10.1[facility] Comment on above:Performed By: #### LIVER, LDH, BMP #### [facility] [address] [address] [address] Esthela StevensChloride [Moles/Vol]102 mmol/MLwshmw31-992Uyz [facility] Comment on above:Performed By: #### LIVER, LDH, BMP #### [facility] [address] [address] [address] Esthela StevensCO2 [Moles/Vol]26.4 mmol/GNbpvob51.0-32.0The [facility] Comment on above:Performed By: #### LIVER, LDH, BMP #### [facility] [address] [address] [address] Esthela StevensCreatinine [Mass/Vol]0.67 mg/dLNormal0.55-1.02The [facility] HospitalComment on above:Performed By: #### LIVER, LDH, BMP #### [facility] [address] [place] [address] Dr. Proctor ChangEGFR-AF ECUADOREAN>60Normal>=60The [facility]S HospitalComment on above:Performed By: #### LIVER, LDH, BMP #### [facility] [address] [place] [address] Dr. Esthela RicciGFR-NON AF ECUADOREAN>60Normal>=60The [facility]S HospitalComment on above:Performed By: #### LIVER, LDH, BMP #### [facility] [address] [place] [address] Dr. Esthela StevensGlobulin (S) [Mass/Vol]3.7 g/dLNormalThe [facility]S HospitalComment on above:Performed By: #### LIVER, LDH, BMP #### [facility] [address] [place] [address] Dr. Esthela StevensGlucose [Mass/Vol]101 mg/dLCfjckv32-133Zaa [facility] Comment on above:Performed By: #### LIVER, LDH, BMP #### [facility] [address] [place] [address] Dr. Esthela StevensPotassium [Moles/Vol]3.8 mmol/LNormal3.5-5.1The [facility] Comment on above:Performed By: #### LIVER, LDH, BMP #### [facility] [address] [address] [address] Esthela StevensProtein [Mass/Vol]7.4 g/dLNormal6.4-8.2The [facility] Comment on above:Performed By: #### LIVER, LDH, BMP #### [facility] [address] [address] [address] Esthela StevensSodium [Moles/Vol]138 mmol/MUkqjnj539-910Ryu [facility] Comment on above:Performed By: #### LIVER, LDH, BMP #### [facility] [address] [address] [address] Esthela StevensUrea nitrogen [Mass/Vol]12.0 mg/dLNormal7.0-18.0[facility] CenterComment on above:Performed By: #### LIVER, LDH, BMP #### [facility] [address] [place] [address] Dr. Esthela StevensUrea nitrogen/Creatinine [Mass ratio]17.9 mg/mgNormalThe [facility] HospitalComment on above:Performed By: #### LIVER, LDH, BMP #### [facility] [address] [place] [address] Dr. Esthela StevensCALCIUMon 12-66-6245Vhqsxkq [Mass/Vol]9.0 mg/dL8.6 - 10.5 mg/dL [facility] HospitalCBC,PLATELETSon 86-37-5762Inxwgqfqfaz distribution width (RBC) [Ratio]13.1 %10.8 - 14.9 %[facility] HospitalHematocrit (Bld) [Volume fraction]33.0 %Low34.9 - 44.3 %[facility] HospitalHemoglobin (Bld) [Mass/Vol]10.5 g/dLLow11.4 - 15.2 g/dLTriHealth McCullough-Hyde Memorial HospitalInterpretation and review of laboratory resultsAbnoCleveland Clinic (RBC) [Entitic mass]27.1 pg25.9 - 33.9 pgOSU Wexner Medical CenterMCHC (RBC) [Mass/Vol]31.8 g/dL31.4 - 35.9 g/dLTriHealth McCullough-Hyde Memorial HospitalMCV (RBC) [Entitic vol]85.1 fL79.6 - 97.7 [facility] HospitalPlatelet mean volume (Bld) [Entitic vol]9.1 fL8.5 - 12.2 [facility] HospitalPlatelets (Bld) [#/Vol] 423 10*3/bDLmos044 - 393 K/[facility] HospitalRBC (Bld) [#/Vol]3.88 10*6/uLLowTriHealth McCullough-Hyde Memorial HospitalWBC (Bld) [#/Vol]7.36 10*3/uL3.99 - 11.19 K/uLKaiser Martinez Medical CenterCHEM 7 (LYTES,BUN,CREA,GLUC)on 01-44-4589Uukhr gap [Moles/Vol]13 mmol/L7 - 17 mmol/[facility] HospitalChloride [Moles/Vol]104 mmol/L98 - 108 mmol/[facility] HospitalCO2 [Moles/Vol]26 mmol/L21 - 31 mmol/[facility] Creatinine [Mass/Vol]0.66 mg/dL0.50 - 1.20 mg/dLTriHealth McCullough-Hyde Memorial Hospital GFR/1.73 sq M.predicted CKD-EPI (S/P/Bld) [Vol rate/Area]- [facility] CenterComment on above:Reported eGFR is based on the CKD-EPI 2020 equation using creatinine, age, and sex.Glucose [Mass/Vol]93 mg/dL70 - 99 mg/dL [facility] Memorial HospitalOsmolality Calc [Osmolality]288OSJoint Township District Memorial HospitalPotassium [Moles/Vol]4.2 mmol/L3.5 - 5.0 mmol/[facility] Sodium [Moles/Vol]139 mmol/L135 - 145 mmol/[facility] HospitalUrea nitrogen [Mass/Vol]5 mg/dLLow7 - 25 mg/dLTriHealth McCullough-Hyde Memorial HospitalUrea nitrogen/Creatinine [Mass ratio]8 mg/mgTriHealth McCullough-Hyde Memorial HospitalMAGNESIUMon 75-92-3203Llapuzuhp [Mass/Vol]2.1 mg/dL1.6 - 2.6 mg/dLTriHealth McCullough-Hy[facility] Memorial Hospital No Panel Informationon 21-18-7762Yhfnlhbpegijkr and review of laboratory results AbnormalOSJoint Township District Memorial HospitalInterpretation and review of laboratory results NormalOSJoint Township District Memorial HospitalOSJoint Township District Memorial HospitalPHOSPHATE, INORGANICon 70-94-0240Ovcgomzra [Mass/Vol]4.8 mg/dLHigh2.2 - 4.6 mg/dLTriHealth McCullough-Hyde Memorial HospitalCALCIUMon 10-30-8050Ezfpzms [Mass/Vol]8.6 mg/dL8.6 - 10.5 mg/dLTriHealth McCullough-Hyde Memorial HospitalCBC,PLATELETSon 13-79-2588Hotrkkfcrii distribution width (RBC) [Ratio]13.0 %10.8 - 14.9 %[facility] Memorial HospitalHematocrit (Bld) [Volume fraction]30.5 %Low34.9 - 44.3 %[facility] HospitalHemoglobin (Bld) [Mass/Vol]9.8 g/dLLow11.4 - 15.2 g/dLTriHealth McCullough-Hyde Memorial HospitalInterpretation and review of laboratory resultsAbnormalOOhioHealth Mansfield HospitalMCH (RBC) [Entitic mass]26.8 pg25.9 - 33.9 pgTriHealth McCullough-Hyde Memorial HospitalMCHC (RBC) [Mass/Vol]32.1 g/dL31.4 - 35.9 g/dLTriHealth McCullough-Hyde Memorial HospitalMCV (RBC) [Entitic vol]83.6 fL79.6 - 97.7 [facility] HospitalPlatelet mean volume (Bld) [Entitic vol]9.3 fL 8.5 - 12.2 [facility] HospitalPlatelets (Bld) [#/Vol]374 10*3/uL150 - 393 K/uLU Wilson Memorial HospitalRBC (Bld) [#/Vol]3.65 10*6/uLLowU Wilson Memorial HospitalWBC (Bld) [#/Vol]6.07 10*3/uL3.99 - 11.19 K/uLOSJoint Township District Memorial HospitalOSJoint Township District Memorial HospitalCHEM 7 (LYTES,BUN,CREA,GLUC)on 14-45-2653Lkorg gap [Moles/Vol]11 mmol/L7 - 17 mmol/[facility] HospitalChloride [Moles/Vol]106 mmol/L98 - 108 mmol/[facility] HospitalCO2 [Moles/Vol]25 mmol/L21 - 31 mmol/[facility] HospitalCreatinine [Mass/Vol]0.50 mg/dL0.50 - 1.20 mg/dLTriHealth McCullough-Hyde Memorial HospitalGFR/1.73 sq M.predicted CKD-EPI (S/P/Bld) [Vol rate/Area]- [facility] CenterComment on above:Reported eGFR is based on the CKD-EPI 2020 equation using creatinine, age, and sex.Glucose [Mass/Vol]89 mg/dL70 - 99 mg/dLTriHealth McCullough-Hyde Memorial HospitalOsmolality Calc [Osmolality]285OSJoint Township District Memorial HospitalPotassium [Moles/Vol]4.1 mmol/L3.5 - 5.0 mmol/[facility] Hospitalodium [Moles/Vol]138 mmol/L135 - 145 mmol/[facility] HospitalUrea nitrogen [Mass/Vol]3 mg/dLLow7 - 25 mg/dLTriHealth McCullough-Hyde Memorial HospitalUrea nitrogen/Creatinine [Mass ratio]6 mg/mgTriHealth McCullough-Hyde Memorial HospitalMAGNESIUMon 74-09-4831Gqyfkkitw [Mass/Vol]1.8 mg/dL1.6 - 2.6 mg/dLTriHealth McCullough-Hyde Memorial HospitalNo Panel Informationon 98-02-3327Gfxddjuwnhmysh and review of laboratory resultsAbnoKettering Health Greene MemorialInterpretation and review of laboratory resultsNoEast [facility] PHOSPHATE, INORGANICon 20-27-6750Gyoilqlqr [Mass/Vol]4.9 mg/dLHigh2.2 - 4.6 mg/dLTriHealth McCullough-Hyde Memorial HospitalCALCIUMon 97-24-9387Ggqsook [Mass/Vol]8.6 mg/dL8.6 - 10.5 mg/dLTriHealth McCullough-Hyde Memorial HospitalCBC,PLATELETSon 92-33-3815Qomnsyvwsxj distribution width (RBC) [Ratio]12.9 %10.8 - 14.9 %[facility] Hematocrit (Bld) [Volume fraction]31.1 %Low34.9 - 44.3 %[facility] Memorial HospitalHemoglobin (Bld) [Mass/Vol]10.1 g/dLLow11.4 - 15.2 g/dLTriHealth McCullough-Hyde Memorial HospitalInterpretation and review of laboratory resultsAbnormOhioHealth Arthur G.H. Bing, MD, Cancer CenterH (RBC) [Entitic mass]27.2 pg25.9 - 33.9 pgTriHealth McCullough-Hyde Memorial HospitalMCHC (RBC) [Mass/Vol]32.5 g/dL31.4 - 35.9 g/dLTriHealth McCullough-Hyde Memorial HospitalMCV (RBC) [Entitic vol]83.8 fL79.6 - 97.7 [facility] HospitalPlatelet mean volume (Bld) [Entitic vol]9.2 fL8.5 - 12.2 [facility] HospitalPlatelets (Bld) [#/Vol]344 10*3/uL150 - 393 K/[facility] HospitalRBC (Bld) [#/Vol]3.71 10*6/uLLowTriHealth McCullough-Hyde Memorial HospitalWBC (Bld) [#/Vol]6.21 10*3/uL3.99 - 11.19 K/uLKaiser Martinez Medical CenterCHEM 7 (LYTES,BUN,CREA,GLUC)on 11-60-2778Ostgk gap [Moles/Vol]11 mmol/L7 - 17 mmol/[facility] HospitalChloride [Moles/Vol]105 mmol/L98 - 108 mmol/[facility] HospitalCO2 [Moles/Vol]26 mmol/L21 - 31 mmol/[facility] Creatinine [Mass/Vol]0.49 mg/dLLow0.50 - 1.20 mg/dLTriHealth McCullough-Hyde Memorial Hospital GFR/1.73 sq M.predicted CKD-EPI (S/P/Bld) [Vol rate/Area]- PINFOSU Wexner Medical CenterComment on above:Reported eGFR is based on the CKD-EPI 2020 equation using creatinine, age, and sex.Glucose [Mass/Vol]93 mg/dL70 - 99 mg/dL [facility] HospitalInterpretation and review of laboratory resultsAbnormal [facility] Memorial HospitalOsmolality Calc [Osmolality]285OSJoint Township District Memorial HospitalPotassium [Moles/Vol]4.0 mmol/L3.5 - 5.0 mmol/LOSJoint Township District Memorial Hospital Sodium [Moles/Vol]138 mmol/L135 - 145 mmol/LOSJoint Township District Memorial HospitalUrea nitrogen [Mass/Vol]3 mg/dLLow7 - 25 mg/dLTriHealth McCullough-Hyde Memorial HospitalUrea nitrogen/Creatinine [Mass ratio]6 mg/mgTriHealth McCullough-Hyde Memorial HospitalMAGNESIUMon [id number] [Mass/Vol]1.9 mg/dL1.6 - 2.6 mg/dLTriHealth McCullough-Hyde Memorial Hospital No Panel Informationon 10-33-6816Tylqyrigokdcvj and review of laboratory results NormalKaiser Martinez Medical CenterPHOSPHATE, INORGANICon 13-36-0287Fmqrkvljq [Mass/Vol]4.5 mg/dL2.2 - 4.6 mg/dLTriHealth McCullough-Hyde Memorial Hospital CALCIUMon 26-21-7377Ciebzqc [Mass/Vol]8.4 mg/dLLow8.6 - 10.5 mg/dLTriHealth McCullough-Hyde Memorial HospitalCBC,PLATELETSon 37-39-0820Ypmdwyowqdy distribution width (RBC) [Ratio]12.8 %10.8 - 14.9 %[facility] Memorial HospitalHematocrit (Bld) [Volume fraction]31.5 %Low34.9 - 44.3 %[facility] HospitalHemoglobin (Bld) [Mass/Vol]10.0 g/dLLow11.4 - 15.2 g/dLTriHealth McCullough-Hyde Memorial HospitalInterpretation and review of laboratory resultsAbnormOhioHealth Arthur G.H. Bing, MD, Cancer CenterH (RBC) [Entitic mass]27.0 pg25.9 - 33.9 pgTriHealth McCullough-Hyde Memorial HospitalMCHC (RBC) [Mass/Vol]31.7 g/dL31.4 - 35.9 g/dLTriHealth McCullough-Hyde Memorial HospitalMCV (RBC) [Entitic vol]84.9 fL79.6 - 97.7 [facility] HospitalPlatelet mean volume (Bld) [Entitic vol]9.7 fL8.5 - 12.2 [facility] HospitalPlatelets (Bld) [#/Vol] 327 10*3/uL150 - 393 K/uLTriHealth McCullough-Hyde Memorial HospitalRBC (Bld) [#/Vol]3.71 10*6/uL LowTriHealth McCullough-Hyde Memorial HospitalWBC (Bld) [#/Vol]7.91 10*3/uL3.99 - 11.19 K/uLKaiser Martinez Medical CenterCHEM 7 (LYTES,BUN,CREA,GLUC)on 55-99-3515Abrhj gap [Moles/Vol]13 mmol/L7 - 17 mmol/[facility] Chloride [Moles/Vol]102 mmol/L98 - 108 mmol/[facility] HospitalCO2 [Moles/Vol]23 mmol/L21 - 31 mmol/[facility] HospitalCreatinine [Mass/Vol] 0.48 mg/dLLow0.50 - 1.20 mg/dLTriHealth McCullough-Hyde Memorial HospitalGFR/1.73 sq M.predicted CKD-EPI (S/P/Bld) [Vol rate/Area]- [facility] CenterComment on above:Reported eGFR is based on the CKD-EPI 2020 equation using creatinine, age, and sex.Glucose [Mass/Vol]154 mg/wDMphv32 - 99 mg/dLTriHealth McCullough-Hyde Memorial Hospital Osmolality Calc [Osmolality]282Tri[facility] Memorial HospitalPotassium [Moles/Vol]4.1 mmol/L3.5 - 5.0 mmol/[facility] Hospitalodium [Moles/Vol]134 mmol/LLow 135 - 145 mmol/[facility] HospitalUrea nitrogen [Mass/Vol]3 mg/dLLow7 - 25 mg/dLTriHealth McCullough-Hyde Memorial HospitalUrea nitrogen/Creatinine [Mass ratio]6 mg/mgTriHealth McCullough-Hyde Memorial HospitalMAGNESIUMon 77-19-3370Bmhkalsja [Mass/Vol]1.8 mg/dL1.6 - 2.6 mg/dLTriHealth McCullough-Hyde Memorial HospitalNo Panel Informationon 05-26-2022 Interpretation and review of laboratory resultsAbSouthview Medical Center Interpretation and review of laboratory resultsNoKettering Health Greene Memorial [facility] HospitalPHOSPHATE, INORGANICon 32-27-7282Kghhajfik [Mass/Vol] 3.4 mg/dL2.2 - 4.6 mg/dLTriHealth McCullough-Hyde Memorial HospitalCALCIUMon 09-39-4748Jcibawn [Mass/Vol]8.5 mg/dLLow8.6 - 10.5 mg/dLTriHealth McCullough-Hyde Memorial HospitalCBC,PLATELETSon 25-33-5047Pvgxzzbrsmx distribution width (RBC) [Ratio]12.8 %10.8 - 14.9 %[facility] HospitalHematocrit (Bld) [Volume fraction]31.7 %Low34.9 - 44.3 %[facility] HospitalHemoglobin (Bld) [Mass/Vol]9.8 g/dLLow11.4 - 15.2 g/dLTriHealth McCullough-Hyde Memorial HospitalInterpretation and review of laboratory resultsAbSouthview Medical CenterMCH (RBC) [Entitic mass]26.6 pg25.9 - 33.9 pgU Wilson Memorial HospitalMCHC (RBC) [Mass/Vol]30.9 g/dLLow31.4 - 35.9 g/dLTriHealth McCullough-Hyde Memorial HospitalMCV (RBC) [Entitic vol]85.9 fL79.6 - 97.7 [facility] HospitalPlatelet mean volume (Bld) [Entitic vol]9.7 fL8.5 - 12.2 [facility] HospitalPlatelets (Bld) [#/Vol]292 10*3/uL150 - 393 K/uLU [facility] HospitalRBC (Bld) [#/Vol]3.69 10*6/uLLowU [facility] HospitalWBC (Bld) [#/Vol]9.85 10*3/uL3.99 - 11.19 K/uLOSU [facility] Memorial HospitalOSJoint Township District Memorial HospitalCHEM 7 (LYTES,BUN,CREA,GLUC)on 09-62-4686Vtojr gap [Moles/Vol]13 mmol/L7 - 17 mmol/[facility] HospitalChloride [Moles/Vol]104 mmol/L98 - 108 mmol/L OSJoint Township District Memorial HospitalCO2 [Moles/Vol]24 mmol/L21 - 31 mmol/[facility] HospitalCreatinine [Mass/Vol]0.51 mg/dL0.50 - 1.20 mg/dLTriHealth McCullough-Hyde Memorial HospitalGFR/1.73 sq M.predicted CKD-EPI (S/P/Bld) [Vol rate/Area]- [facility] CenterComment on above:Reported eGFR is based on the CKD-EPI 2020 equation using creatinine, age, and sex.Glucose [Mass/Vol]98 mg/dL70 - 99 mg/dL [facility] Memorial HospitalOsmolality Calc [Osmolality]283OSJoint Township District Memorial HospitalPotassium [Moles/Vol]4.0 mmol/L3.5 - 5.0 mmol/[facility] Sodium [Moles/Vol]137 mmol/L135 - 145 mmol/[facility] HospitalUrea nitrogen [Mass/Vol]2 mg/dLLow7 - 25 mg/dLTriHealth McCullough-Hyde Memorial HospitalUrea nitrogen/Creatinine [Mass ratio]4 mg/mgTriHealth McCullough-Hyde Memorial HospitalMAGNESIUMon 53-81-0764Tnlwdhuct [Mass/Vol]1.8 mg/dL1.6 - 2.6 mg/dLTriHealth McCull[facility] No Panel Informationon 92-79-8165Wecelpevjcoouv and review of laboratory results AbnormalTriHealth McCullough-Hyde Memorial HospitalInterpretation and review of laboratory results NormalKaiser Martinez Medical CenterPHOSPHATE, INORGANICon 54-15-5675Dlelxcned [Mass/Vol]3.2 mg/dL2.2 - 4.6 mg/dLTriHealth McCullough-[facility] CALCIUMon 02-69-1255Fptetrx [Mass/Vol]7.9 mg/dLLow8.6 - 10.5 mg/dLTriHealth McCullough-Hyde Memorial HospitalCBC,PLATELETSon 39-15-5367Roomxpnpbpw distribution width (RBC) [Ratio]13.2 %10.8 - 14.9 %[facility] HospitalHematocrit (Bld) [Volume fraction]33.0 %Low34.9 - 44.3 %[facility] HospitalHemoglobin (Bld) [Mass/Vol]10.4 g/dLLow11.4 - 15.2 g/dLTriHealth McCullough-Hyde Memorial HospitalInterpretation and review of laboratory resultsAbnormOhioHealth Arthur G.H. Bing, MD, Cancer CenterH (RBC) [Entitic mass]27.2 pg25.9 - 33.9 pgTriHealth McCullough-Hyde Memorial HospitalMCHC (RBC) [Mass/Vol]31.5 g/dL31.4 - 35.9 g/dLTriHealth McCullough-Hyde Memorial HospitalMCV (RBC) [Entitic vol]86.2 fL79.6 - 97.7 [facility] HospitalPlatelet mean volume (Bld) [Entitic vol]9.7 fL8.5 - 12.2 [facility] HospitalPlatelets (Bld) [#/Vol] 270 10*3/uL150 - 393 K/uLTriHealth McCullough-Hyde Memorial HospitalRBC (Bld) [#/Vol]3.83 10*6/uL LowTriHealth McCullough-Hyde Memorial HospitalWBC (Bld) [#/Vol]13.10 10*3/uLHigh3.99 - 11.19 K/uL [facility] CenterCHEM 7 (LYTES,BUN,CREA,GLUC)on 30-07-6084Xjpzv gap [Moles/Vol]10 mmol/L7 - 17 mmol/[facility] Chloride [Moles/Vol]105 mmol/L98 - 108 mmol/[facility] HospitalCO2 [Moles/Vol]24 mmol/L21 - 31 mmol/[facility] HospitalCreatinine [Mass/Vol] 0.51 mg/dL0.50 - 1.20 mg/dLTriHealth McCullough-Hyde Memorial HospitalGFR/1.73 sq M.predicted CKD- EPI (S/P/Bld) [Vol rate/Area]- [facility] CenterComment on above: Reported eGFR is based on the CKD-EPI 2020 equation using creatinine, age, and sex.Glucose [Mass/Vol]121 mg/wOLljs98 - 99 mg/dLTriHealth McCullough-[facility] Osmolality Calc [Osmolality]281OSJoint Township District Memorial HospitalPotassium [Moles/Vol]4.1 mmol/L3.5 - 5.0 mmol/LOSU [facility] Medical Centerodium [Moles/Vol]135 mmol/L135 - 145 mmol/LOSU [facility] HospitalUrea nitrogen [Mass/Vol]2 mg/dLLow7 - 25 mg/dLTriHealth McCullough-Hyde Memorial HospitalUrea nitrogen/Creatinine [Mass ratio]4 mg/mgTriHealth McCullough-Hyde Memorial HospitalMAGNESIUMon 89-15-8048Thzehmwlmdbzct and review of laboratory resultsNoKettering Health Greene MemorialMagnesium [Mass/Vol]1.7 mg/dL 1.6 - 2.6 mg/dLTriHealth McCullough-Hyde Memorial HospitalNo Panel Informationon 05-24-2022 Interpretation and review of laboratory resultsAbTemple Community HospitalPHOSPHATE, INORGANICon 14-77-9905Doomtfden [Mass/Vol] 2.1 mg/dLLow2.2 - 4.6 mg/dLTriHealth McCullough-Hyde Memorial HospitalCALCIUMon 79-78-6633Lwiwgas [Mass/Vol]8.0 mg/dLLow8.6 - 10.5 mg/dLTriHealth McCullough-Hy[facility] Memorial HospitalInterpretation and review of laboratory resultsAbSouthview Medical CenterCBC,PLATELETSon 66-59-9875Dizsvrjqtty distribution width (RBC) [Ratio]13.0 %10.8 - 14.9 %[facility] HospitalHematocrit (Bld) [Volume fraction]38.4 %34.9 - 44.3 %[facility] HospitalHemoglobin (Bld) [Mass/Vol]12.3 g/dL11.4 - 15.2 g/dLTriHealth McCullough-Hyde Memorial HospitalInterpretation and review of laboratory resultsAbSouthview Medical CenterMCH (RBC) [Entitic mass]26.8 pg25.9 - 33.9 pgTriHealth McCullough-Hyde Memorial HospitalMCHC (RBC) [Mass/Vol]32.0 g/dL31.4 - 35.9 g/dLTriHealth McCullough-Hyde Memorial HospitalMCV (RBC) [Entitic vol]83.7 fL79.6 - 97.7 [facility] Platelet mean volume (Bld) [Entitic vol]9.6 fL8.5 - 12.2 [facility] HospitalPlatelets (Bld) [#/Vol]354 10*3/uL150 - 393 K/[facility] RBC (Bld) [#/Vol]4.59 10*6/uLTriHealth McCullough-Hyde Memorial HospitalWBC (Bld) [#/Vol]12.80 10*3/uLHigh3.99 - 11.19 K/uLKaiser [facility] Medical Center CHEM 7 (LYTES,BUN,CREA,GLUC)Ordered By: Shraddha Munguia on 73-39-3731Thijl gap [Moles/Vol]13 mmol/L7 - 17 mmol/[facility] HospitalChloride [Moles/Vol] 103 mmol/L98 - 108 mmol/[facility] HospitalCO2 [Moles/Vol]24 mmol/L21 - 31 mmol/[facility] HospitalCreatinine [Mass/Vol]0.68 mg/dL0.50 - 1.20 mg/dLTriHealth McCullough-Hyde Memorial HospitalGFR/1.73 sq M.predicted CKD-EPI (S/P/Bld) [Vol rate/Area]- [facility] CenterComment on above:Reported eGFR is based on the CKD-EPI 202 equation using creatinine, age, and sex.Glucose [Mass/Vol] 148 mg/vTGheo50 - 99 mg/dLTriHealth McCullough-Hyde Memorial HospitalInterpretation and review of laboratory resultsAbnormSumma HealthOsmolality Calc [Osmolality] 285OS[facility] HospitalPotassium [Moles/Vol]4.9 mmol/L3.5 - 5.0 mmol/[facility] [facility] Hospitalodium [Moles/Vol]135 mmol/L135 - 145 mmol/[facility] HospitalUrea nitrogen [Mass/Vol]4 mg/dLLow7 - 25 mg/dLTriHealth McCullough-Hyde Memorial HospitalUrea nitrogen/Creatinine [Mass ratio]6 mg/mgKaiser Martinez Medical CenterMAGNESIUMon 08-87-6248Sdgqliqxa [Mass/Vol]2.5 mg/dL1.6 - 2.6 mg/dLTriHealth McCullough-Hyde Memorial HospitalNo Panel Informationon 05-23-2022 Interpretation and review of laboratory resultsNoKettering Health Greene Memorial OSJoint Township District Memorial HospitalPHOSPHATE, INORGANICon 94-27-1682Owqznwtvr [Mass/Vol] 2.7 mg/dL2.2 - 4.6 mg/dLTriHealth McCullough-Hyde Memorial HospitalBETA HCG, URINE (POC DEVICE)on 32-61-6080Bizq HCG ( test) Ql (U)NegativeNegativeTriHealth McCullough-Hyde Memorial HospitalInterpretation and review of laboratory resultsNoKettering Health Greene MemorialTest performed at address of the patient encounter.[facility] CenterCALCIUMon 18-52-9768Vnoqgtj [Mass/Vol]7.8 mg/dL Low8.6 - 10.5 mg/dLTriHealth McCullough-Hyde Memorial HospitalCBC,PLATELETSon 05-22-2022 Erythrocyte distribution width (RBC) [Ratio]12.7 %10.8 - 14.9 %[facility] HospitalHematocrit (Bld) [Volume fraction]37.0 %34.9 - 44.3 %[facility] HospitalHemoglobin (Bld) [Mass/Vol]12.0 g/dL11.4 - 15.2 g/dLTriHealth McCullough-Hyde Memorial HospitalInterpretation and review of laboratory resultsAbnoKettering Health Greene MemorialMCH (RBC) [Entitic mass]26.3 pg25.9 - 33.9 pgTriHealth McCullough-Hyde Memorial HospitalMCHC (RBC) [Mass/Vol]32.4 g/dL31.4 - 35.9 g/dLTriHealth McCullough-Hyde Memorial HospitalMCV (RBC) [Entitic vol]81.0 fL79.6 - 97.7 [facility] HospitalPlatelet mean volume (Bld) [Entitic vol]9.5 fL8.5 - 12.2 [facility] HospitalPlatelets (Bld) [#/Vol]350 10*3/uL150 - 393 K/[facility] HospitalRBC (Bld) [#/Vol] 4.57 10*6/[facility] HospitalWBC (Bld) [#/Vol]17.70 10*3/uLHigh3.99 - 11.19 K/uLKaiser Martinez Medical CenterCHEM 7 (LYTES,BUN,CREA,GLUC)on 76-48-0298Bnzkw gap [Moles/Vol]16 mmol/L7 - 17 mmol/[facility] HospitalChloride [Moles/Vol]103 mmol/L98 - 108 mmol/[facility] HospitalCO2 [Moles/Vol]21 mmol/L21 - 31 mmol/[facility] Creatinine [Mass/Vol]0.56 mg/dL0.50 - 1.20 mg/dLTriHealth McCullough-[facility] GFR/1.73 sq M.predicted CKD-EPI (S/P/Bld) [Vol rate/Area]- [facility] CenterComment on above:Reported eGFR is based on the CKD-EPI 2020 equation using creatinine, age, and sex.Glucose [Mass/Vol]133 mg/jUHqyh57 - 99 mg/dLTriHealth McCullough-Hyde Memorial HospitalOsmolality Calc [Osmolality]285[facility] Memorial HospitalPotassium [Moles/Vol]3.9 mmol/L3.5 - 5.0 mmol/[facility] Sodium [Moles/Vol]136 mmol/L135 - 145 mmol/[facility] HospitalUrea nitrogen [Mass/Vol]6 mg/dLLow7 - 25 mg/dLTriHealth McCullough-Hyde Memorial HospitalUrea nitrogen/Creatinine [Mass ratio]11 mg/mgTriHealth McCullough-Hyde Memorial HospitalCONTINUOUS CARDIAC MONITORING STRIPon 15-41-1118BTP[address] [place], [place] [address]CONTINUOUS CARDIAC MONITORING STRIPOrdered By: Unassigned Pacs on 44-61-9893IIK[address] [place] [address] Work Phone: HEPATIC FUNCTION PANELon 29-80-7266Uosqqms [Mass/Vol] 3.8 g/dL3.5 - 5.0 g/dLOSU Wilson Memorial HospitalALP [Catalytic activity/Vol]54 U/L32 - 126 U/[facility]ITALU [facility] HospitalALT [Catalytic activity/Vol]17 U/L9 - 48 U/[facility] HospitalAST [Catalytic activity/Vol]23 U/L10 - 39 U/[facility] HospitalBilirubin [Mass/Vol]0.5 mg/dLNINF - 1.5 mg/dLOSU Wilson Memorial HospitalBilirubin.direct [Mass/Vol]0.2 mg/dLNINF - 0.3 mg/dLOSU [facility] Memorial HospitalProtein [Mass/Vol]6.3 g/dLLow6.4 - 8.3 g/dLOSJoint Township District Memorial HospitalMAGNESIUMon 73-40-3562Bfdodalxk [Mass/Vol]1.4 mg/dLLow1.6 - 2.6 mg/dLOSJoint Township District Memorial HospitalNo Panel Informationon [id number]/RH(D) TYPEPositiveOSU Wilson Memorial HospitalBLOOD COMPONENT TYPERed Cells, LeukoreducedOSJoint Township District Memorial HospitalEXPIRATION [id number] [facility] HospitalProduct ABO/RH(D)PositiveOSU [facility] Memorial HospitalProduct ABO/RH(D) [id number] [facility] HospitalPRODUCT [id number] [facility] HospitalUNIT STATUSreleased [facility] HospitalOSU [facility] Memorial HospitalInterpretation and review of laboratory resultsAbnormSumma HealthPHOSPHATE, INORGANICon 44-70-3501Wurihabghtfbjb and review of laboratory resultsNormSumma HealthPhosphate [Mass/Vol]3.3 mg/dL2.2 - 4.6 mg/dLOSJoint Township District Memorial HospitalPOC ARTERIAL BLOOD GASon 49-23-9980Zbdj excess Calc (Bld) [Moles/Vol]- 2.1000 mmol/L-3.0 - 3.0 mmol/[facility]OSPITALU [facility] HospitalCalcium.ionized (Bld) [Mass/Vol]4.22 mg/dLLow4.60 - 5.30 mg/dLTriHealth McCullough-Hyde Memorial HospitalCO2 (Bld) [Partial pressure]33 mm[Hg]OSJoint Township District Memorial HospitalGlucose [Mass/Vol]127 mg/dL High70 - 99 mg/dLOSJoint Township District Memorial HospitalHCO3 (Bld) [Moles/Vol]22 mmol/L22 - 28 mmol/[facility] HospitalHematocrit (Bld) [Volume fraction]34.5 %34.2 - 45.6 %OSJoint Township District Memorial HospitalHemoglobin (Bld) [Mass/Vol]11.3 g/dLLow11.4 - 15.2 g/dLTriHealth McCullough-Hyde Memorial HospitalInterpretation and review of laboratory resultsAbnormalOOhioHealth Mansfield HospitalLactate [Moles/Vol]1.2 mmol/L0.5 - 1.6 mmol/[facility] HospitalOxygen (Bld) [Partial pressure]230 mm[Hg]HighOSJoint Township District Memorial HospitalOxygen saturation in Blood99 %[facility] Memorial HospitalpH (Bld)7.42 [pH]7.35 - 7.45[facility] HospitalPotassium [Moles/Vol]3.6 mmol/L3.5 - 5.0 mmol/[facility] Hospitalodium [Moles/Vol]137 mmol/L135 - 145 mmol/[facility] Hospitalpecimen source Nom (Unsp spec)ArterialOSJoint Township District Memorial HospitalTest performed at address of the patient encounter.OSJoint Township District Memorial HospitalOSJoint Township District Memorial HospitalBase excess Calc (Bld) [Moles/Vol] 0.0 mmol/L-3.0 - 3.0 mmol/[facility] HospitalCalcium.ionized (Bld) [Mass/Vol]4.56 mg/dLLow4.60 - 5.30 mg/dLTriHealth McCullough-Hyde Memorial HospitalCO2 (Bld) [Partial pressure]38 mm[Hg]OSJoint Township District Memorial HospitalGlucose [Mass/Vol]138 mg/dL High70 - 99 mg/dLTriHealth McCullough-Hyde Memorial HospitalHCO3 (Bld) [Moles/Vol]24 mmol/L22 - 28 mmol/[facility] HospitalHematocrit (Bld) [Volume fraction]34.7 %34.2 - 45.6 %[facility] HospitalHemoglobin (Bld) [Mass/Vol]11.3 g/dLLow11.4 - 15.2 g/dLTriHealth McCullough-Hyde Memorial HospitalInterpretation and review of laboratory resultsAbnoKettering Health Greene MemorialOxygen (Bld) [Partial pressure]197 mm[Hg]HighTriHealth McCullough-Hyde Memorial HospitalOxygen saturation in Blood99 %[facility] Memorial HospitalpH (Bld)7.42 [pH]7.35 - 7.45Tri[facility] HospitalPotassium [Moles/Vol]3.4 mmol/LLow3.5 - 5.0 mmol/[facility] Hospitalodium [Moles/Vol]138 mmol/L135 - 145 mmol/[facility] Hospitalpecimen source Nom (Unsp spec)ArterialTriHealth McCullough-Hyde Memorial HospitalTest performed at address of the patient encounter.[facility] CenterPREPARE TO TRANSFUSE OR RED BLOOD CELLSon [id number] [id number] McCullough-Hyde Memorial HospitalUNIT [id number] Martinez Medical CenterPROTIME-INRon 19-44-4636NUA Coag (Bld) [Relative time]1.2 {INR} High0.9 - 1.1[facility] HospitalInterpretation and review of laboratory resultsAbnoKettering Health Greene MemorialPT Coag (PPP) [Time]14.8 [facility] HospitalTYPE AND SCREENon [id number]/RH(D) TYPEPositiveOSInspira Medical Center ElmerXR Abdomen Single viewon [id number]: Appropriate position of the nasogastric tube in the stomach. RADIOLOGY EXAM: XR ABDOMEN 1 VIEW, 05/22/2022 14:13 [...] excluded. No acute osseous abnormality is identified. RADIOLOGYCoDebora sawyer MD - 05/22/2022 EXAM: XR ABDOMEN 1 [...] of the nasogastric tube in the stomach. [facility] HospitalRadiology Study observation (narrative)[facility] Memorial HospitalXR Abdomen Single viewOrdered By: Debora Burciaga on 05-22-2022 [facility] Work Phone: pREG HCG QUALon [id number], QUALNegative NormalNEGATIVEThe [facility] Children'S HospitalComment on above:Performed By: #### PREG #### [facility] [address] [place] [address] Dr. Esthela Salinas-19 PCR ([facility])on 79-80-3078LYAO-CoV-2 (COVID-19) RNA JORGE LUIS+probe Ql (Unsp spec)Not detectedNormalNOT DETECTEDThe [facility] Comment on above:Result Comment: This test is not yet approved or cleared by the [place] FDA. When there are no FDA-approved or cleared tests available, and other criteria are met, FDA can make tests available under an emergency access mechanism called an Emergency Use Authorization (EUA). The EUA for this test is supported by the [place] of Health and Human Service's (HHS's) declaration that circumstances exist to justify the emergency use of in vitro diagnostics for the detection and/or diagnosis of the virus that causes COVID- 19. This EUA will remain in effect (meaning [...] of clinical signs and symptoms consistent with SARS-CoV-2.Performed By: #### LIVER, LDH, BMP #### [facility] [address] [place] [address] Dr. Esthela Lemons Abdomen and Pelvis W contrast Jason [id number]: No evidence of metastatic disease in the [...] error, please notify the sender immediately at [phone] and permanently delete the original report and destroy any copies or printouts. RADIOLOGYEXAM: CT ABDOMEN/PELVIS WITH CONTRAST COMPARISON: 02/03/2022 CLINICAL [...] stable. No acute or suspicious osseous lesion. RADIOLOGYSoAvinash castellanos MD - 04/01/2022 EXAM: CT ABDOMEN/PELVIS WITH [...] error, please notify the sender immediately at [phone] and permanently delete the original report and destroy any copies or printouts. [facility] HospitalCT Abdomen and Pelvis W contrast IVOrdered By: Avinash Miller on 33-49-7423YCFOhioHealth Mansfield HospitalCT Chest W contrast Jason [id number]: 1. No evidence for intrathoracic metastatic disease RADIOLOGY EXAM: CT CHEST WITH CONTRAST, 03/31/2022 13:08 [...] and Soft Tissue: No suspicious osseous lesion. RADIOLOGYDavisYovany MD - 03/31/2022 EXAM: CT CHEST WITH [...] 1. No evidence for intrathoracic metastatic disease [facility] HospitalCT Chest W contrast IVOrdered By: Yovany Bills on 02-12-0945LKQOhioHealth Mansfield Hospital Work Phone: no Panel Informationon [id number] Study observation (narrative)OSJoint Township District Memorial HospitalCBC AND ELECTRONIC DIFFon [id number] (Bld) [#/Vol]0.05 10*3/uL0.00 - 0.15 K/uLOSJoint Township District Memorial HospitalBasophils/100 WBC (Bld)0.6 %[facility] HospitalDifferential cell count method Nom (Bld)Electronic DifferentialOSJoint Township District Memorial Hospital Eosinophils (Bld) [#/Vol]0.07 10*3/uL0.00 - 0.42 K/uLTriHealth McCullough-Hyde Memorial Hospital Eosinophils/100 WBC (Bld)0.8 %[facility] Memorial HospitalErythrocyte distribution width (RBC) [Ratio]13.4 %10.8 - 14.9 %[facility] Memorial HospitalHematocrit (Bld) [Volume fraction]37.9 %34.9 - 44.3 %[facility] HospitalHemoglobin (Bld) [Mass/Vol]11.9 g/dL11.4 - 15.2 g/dLTriHealth McCullough-Hyde Memorial HospitalImmature granulocytes (Bld) [#/Vol]0.04 10*3/uL<=0.08OS[facility] HospitalImmature granulocytes/100 WBC (Bld)0.5 %[facility] HospitalInterpretation and review of laboratory resultsAbnormalOOhioHealth Mansfield HospitalLymphocytes (Bld) [#/Vol]2.33 10*3/uL1.16 - 3.51 K/uLTriHealth McCullough-Hyde Memorial HospitalLymphocytes/100 WBC (Bld)27.4 %[facility] HospitalH (RBC) [Entitic mass]26.3 pg25.9 - 33.9 pgOSU Wilson Memorial HospitalMCHC (RBC) [Mass/Vol]31.4 g/dL31.4 - 35.9 g/dLTriHealth McCullough-Hyde Memorial HospitalMCV (RBC) [Entitic vol]83.8 fL79.6 - 97.7 [facility] HospitalMonocytes (Bld) [#/Vol]0.46 10*3/uL0.22 - 0.87 K/uLTriHealth McCullough-Hyde Memorial HospitalMonocytes/100 WBC (Bld)5.4 %[facility] HospitalNeutrophils (Bld) [#/Vol]5.55 10*3/uL1.64 - 7.28 K/uLTriHealth McCullough-Hyde Memorial HospitalNucleated RBC/100 WBC (Bld) [Ratio]0.0 %<=0.2 /100 WBCTriHealth McCullough-Hyde Memorial HospitalPlatelet mean volume (Bld) [Entitic vol]10.0 fL8.5 - 12.2 [facility] Platelets (Bld) [#/Vol]402 10*3/aRTriu145 - 393 K/[facility] HospitalRBC (Bld) [#/Vol]4.52 10*6/uLOSU [facility]xner Medical Centeregmented neutrophils/100 WBC (Bld)65.3 %[facility] Memorial HospitalWBC (Bld) [#/Vol]8.50 10*3/uL3.99 - 11.19 K/uLOSJoint Township District Memorial HospitalOSJoint Township District Memorial HospitalCOMPREHENSIVE METABOLIC PANELon [id number] [Mass/Vol]4.5 g/dL3.5 - 5.0 g/dLTriHealth McCullough-Hyde Memorial HospitalALP [Catalytic activity/Vol]67 U/L32 - 126 U/[facility] HospitalALT [Catalytic activity/Vol]15 U/L9 - 48 U/[facility] HospitalAnion gap [Moles/Vol]16 mmol/L7 - 17 mmol/[facility] HospitalAST [Catalytic activity/Vol]14 U/L10 - 39 U/[facility] HospitalBilirubin [Mass/Vol]0.4 mg/dL<1.5Tri[facility] Memorial HospitalCalcium [Mass/Vol]9.8 mg/dL8.6 - 10.5 mg/dLTriHealth McCullough-Hyde Memorial HospitalChloride [Moles/Vol]100 mmol/L98 - 108 mmol/[facility] HospitalCO2 [Moles/Vol]27 mmol/L21 - 31 mmol/[facility] Creatinine [Mass/Vol]0.66 mg/dL0.50 - 1.20 mg/dLTriHealth [facility] GFR/1.73 sq M.predicted CKD-EPI (S/P/Bld) [Vol rate/Area]>90>=60 mL/min/1.73m2 OSJoint Township District Memorial HospitalComment on above:Reported eGFR is based on the CKD-EPI 2020 equation using creatinine, age, and sex.Glucose [Mass/Vol]73 mg/dL70 - 99 mg/dLTriHealth McCullough-Hyde Memorial HospitalOsmolality Calc [Osmolality]287OSJoint Township District Memorial HospitalPotassium [Moles/Vol]3.6 mmol/L3.5 - 5.0 mmol/[facility] Protein [Mass/Vol]7.4 g/dL6.4 - 8.3 g/dLGood Samaritan Hospitalodium [Moles/Vol]139 mmol/L135 - 145 mmol/[facility] HospitalUrea nitrogen [Mass/Vol]10 mg/dL7 - 25 mg/dLOSU Wilson Memorial HospitalUrea nitrogen/Creatinine [Mass ratio]15 mg/mgOSU Wilson Memorial HospitalOSU Wilson Memorial HospitalPT,INR,PTT on 81-69-3394iRVW Coag (PPP) [Time]36.5 [facility] for RehabilitationINR Coag (Bld) [Relative time]1.2 {INR}HighU Wilson Memorial HospitalInterpretation and review of laboratory resultsAbnoKettering Health Greene MemorialPT Coag (PPP) [Time]14.6 [facility] HospitalCBC AUTO DIFF on 49-44-0796VVIB #0.1 103/ulNormal0.0-0.1[facility] Medical CenterComment on above: Performed By: #### LIVER, LDH, BMP #### [facility] [address] [place] [address] Dr. Esthela StevensBasophils/100 WBC (Bld)0.5 %Normal0.2-2.0[facility] Comment on above:Performed By: #### LIVER, LDH, BMP #### [facility] [address] [address] [address] Esthela Alexis #0.1 103/ulNormal0.0-0.7The [facility]S HospitalComment on above: Performed By: #### LIVER, LDH, BMP #### [facility] [address] [address] [address] Esthela Ricciosinophils/100 WBC (Bld)1.2 %Normal0.9-7.0[facility] Comment on above:Performed By: #### LIVER, LDH, BMP #### [facility] [address] [address] [address] Esthela Riccirythrocyte distribution width (RBC) [Ratio]13.2 %Cssnnw70.0-15.0 [facility] Medical CenterComment on above:Performed By: #### LIVER, LDH, BMP #### [facility] [address] [place] [address] Dr. Esthela StevensHematocrit (Bld) [Volume fraction]38.4 %Plmufb34.0-48.0The [facility]S HospitalComment on above:Performed By: #### LIVER, LDH, BMP #### [facility] [address] [place] [address] Dr. Esthela StevensHemoglobin (Bld) [Mass/Vol]12.2 g/uMKznnim99.0-16.0The [facility] HospitalComment on above:Performed By: #### LIVER, LDH, BMP #### [facility] [address] [place] [address] Dr. Esthela Mcclellan #0.06 10e3/ulCritically high0.00-0.03The [facility] Comment on above:Performed By: #### LIVER, LDH, BMP #### [facility] [address] [place] [address] Dr. Esthela Mcclellan %0.6 %Critically high0.0-0.5The [facility] HospitalComment on above:Performed By: #### LIVER, LDH, BMP #### [facility] [address] [place] [address] Dr. Esthela Rich #2.1 103/ulNormal1.2-3.8The [facility] HospitalComment on above:Performed By: #### LIVER, LDH, BMP #### [facility] [address] [place] [address] Dr. Esthela Bonillahocytes/100 WBC (Bld)21.7 %Mroyzq83.5-60.0The [facility] HospitalComment on above:Performed By: #### LIVER, LDH, BMP #### [facility] [address] [place] [address] Dr. Esthela LiangUAL DIFF REQNONormalThe [facility]S HospitalComment on above: Performed By: #### LIVER, LDH, BMP #### [facility] [address] [place] [address] Dr. Esthela Fernando (RBC) [Entitic mass]26.5 pgCritically low26.7-34.0The [facility] HospitalComment on above:Performed By: #### LIVER, LDH, BMP #### [facility] [address] [place] [address] Dr. Esthela Vanegas (RBC) [Mass/Vol]31.8 g/qHTpmfdm64.9-35.2The [facility] HospitalComment on above:Performed By: #### LIVER, LDH, BMP #### [facility] [address] [place] [address] Dr. Esthela Vanegas (RBC) [Entitic vol]83.5 tPRhzvtu62.0-99.0The [facility] HospitalComment on above:Performed By: #### LIVER, LDH, BMP #### [facility] [address] [place] [address] Dr. Esthela Jackson #0.7 103/ulNormal0.3-0.8The [facility] HospitalComment on above:Performed By: #### LIVER, LDH, BMP #### [facility] [address] [place] [address] Dr. Esthela Chanocytes/100 WBC (Bld)7.5 %Normal1.7-12.0[facility] Comment on above:Performed By: #### LIVER, LDH, BMP #### [facility] [address] [place] [address] Dr. Esthela Bonner #6.8 103/ulCritically high1.4-6.5The [facility] Comment on above:Performed By: #### LIVER, LDH, BMP #### [facility] [address] [place] [address] Dr. Esthela Spenceophils/100 WBC (Bld)68.5 %Gjywlf58.0-75.0The [facility] HospitalComment on above:Performed By: #### LIVER, LDH, BMP #### [facility] [address] [place] [address] Dr. Esthela Novak mean volume (Bld) [Entitic vol]9.4 fLCritically low 9.5-13.5The [facility] HospitalComment on above:Performed By: #### LIVER, LDH, BMP #### [facility] [address] [address] [address] Esthela StevensPLT403 103/thTwaozm945-786Kgc [facility] HospitalComment on above: Performed By: #### LIVER, LDH, BMP #### [facility] [address] [place] [address] Dr. Esthela StevensRBC4.60 106/ulNormal4.20-5.40The [facility] HospitalComment on above:Performed By: #### LIVER, LDH, BMP #### [facility] [address] [place] [address] Dr. Esthela StevensWBC9.9 103/ulNormal4.0-11.0The [facility] HospitalComment on above: Performed By: #### LIVER, LDH, BMP #### [facility] [address] [place] [address] Dr. Esthela StevensCT ABD/PELV W CONon 87-12-6193PT ABD/PELV W CONEXAMINATION: CT ABD/PELV W CON HISTORY: Right sided [...] of uncertain clinical significance. Electronically authenticated by: CAROLYNDEMI WALSH Date: 2022-02-03 12:14[facility] CenterCovid-19 PCR (CVDTBH)on 21-19-4059KZKQ-CoV-2 (COVID-19) RNA JORGE LUIS+probe Ql (Unsp spec)Not detectedNormalNOT DETECTEDTrinity Health System [facility] Comment on above:Result Comment: When diagnostic testing is negative, the [...] for this test is supported by the Global Safety Officer of Health and Human Service's declaration that circumstances exist to justify the emergency use of in vitro diagnostics for the detection and/or diagnosis of the virus that causes COVID-19. This EUA will remain in effect for the duration of the COVID-19 declaration justifying emergency of IVDs, unless it is terminated or revoked by the FDA (after which the test may no longer be used).Performed By: #### LIVER, LDH, BMP #### [facility] [address] [place] [address] Dr. Esthela Knight URINE PROFILEon 86-41-3899Gxfyuazrx Ql (U)NegativeNormal NEGATIVETrinity Health System Twin City Medical CenterCombaraga county memorial hospital on above:Performed By: #### ERUM NICHOLASRO #### [facility] [address] [place] [address] Dr. Esthela Jones (U)CLEARNormalCLEARTrinity Health System Twin City Medical CenterComment on above: Performed By: #### ERUM NICHOLASRO #### [facility] [address] [place] [address] Dr. Esthela Ordonez (U)LT. YELLOWNormalYELLOWTrinity Health System Twin City Medical CenterComment on above:Performed By: #### MERISSA NICHOLASICRO #### [facility] [address] [place] [address] Dr. Esthela Sweeney micrscopic examination will be performed if indicated. NormalThe Austin HospitalComment on above:Performed By: #### ERUM NICHOLASRO #### [facility] [address] [place] [address] Dr. Esthela StevensGlucose Ql (U)NegativeNormalNEGATIVEWilson Memorial Hospital HospitalComment on above:Performed By: #### CRISTOPHER UMICRO #### [facility] [address] [place] [address] Dr. Esthela StevensHemoglobin Ql (U)NegativeNormalNEGATIVETrinity Health System [facility] Comment on above:Performed By: #### CRISTOPHER UMHARVINDERRO #### [facility] [address] [place] [address] Dr. Esthela StevensKetones Ql (U)NegativeNormalNEGATIVETrinity Health System Twin City Medical CenterComment on above:Performed By: #### CRISTOPHER UMICRO #### [facility] [address] [place] [address] Dr. Esthela StevensLEUKOCYTESSMALLAbnormalNEGATIVETrinity Health System Twin City Medical CenterComment on above:Performed By: #### CRISTOPHER UMHARVINDERRO #### [facility] [address] [place] [address] Dr. Esthela StevensNitrite Ql (U)NegativeNormalNEGATIVETrinity Health System Twin City Medical CenterComment on above:Performed By: #### CRISTOPHER UMICRO #### [facility] [address] [place] [address] Dr. Esthela StevenspH (U)7.0 [pH]Normal5-9The [facility] HospitalComment on above: Performed By: #### CRISTOPHER UMHARVINDERRO #### [facility] [address] [place] [address] Dr. Esthela StevensSPEC GRAVITY1.391Smvauh0.005-<=1.025The [facility] HospitalComment on above:Performed By: #### CRISTOPHER UMHARVINDERRO #### [facility] [address] [place] [address] Dr. Esthela Anna PROTEINNegativeNormalNEGATIVE/ TRACEThe [facility] Comment on above:Performed By: #### MAKENZIE NICHOLAS #### [facility] [address] [place] [address] Dr. Esthela Cassidy MICRO INDINDICATEDNormalThKeenan Private HospitalComment on above: Performed By: #### ERUM NICHOLASRO #### [facility] [address] [place] [address] Dr. Esthela Riverabilinogen Qn (U)0.2 {Emeka'U}/dLNormal0.2 - 1.0The [facility] HospitalComment on above:Performed By: #### ERUM NICHOLASRO #### [facility] [address] [place] [address] Dr. Esthela StevensLACTATE/LACTIC ACIDon 90-48-3319Thmntpe [Moles/Vol]1.3 mmol/L Normal0.4-1.9The [facility] HospitalComment on above:Performed By: #### PREG #### [facility] [address] [place] [address] Dr. Esthela StevensLIPASEon 93-19-6656Giesoq [Catalytic activity/Vol]58.0 U/L Critically low73.0-393.0The [facility] HospitalComment on above:Performed By: #### LIPA, CMP #### [facility] [address] [place] [address] Dr. Esthela Castellanos HCG QUALon 49-02-1656CVREBHRMW, QUALNegativeNormalNEGATIVE The [facility]S HospitalComment on above:Performed By: #### LIVER, LDH, BMP #### [facility] [address] [place] [address] Dr. Esthela Walker 14(COMP METB)on 91-29-9180Mldafhx [Mass/Vol]3.8 g/dLNormal 3.4-5.0The [facility] HospitalComment on above:Performed By: #### LIPA, CMP #### [facility] [address] [place] [address] Dr. Esthela StevensAlbumin/Globulin [Mass ratio]1.0 {ratio}NormalThe [facility]S HospitalComment on above:Performed By: #### LIPA, CMP #### [facility] [address] [address] [address] Esthela Pinedo [Catalytic activity/Vol]75 U/LXlxwvj35-240Ydl [facility] HospitalComment on above:Performed By: #### LIPA, CMP #### [facility] [address] [address] [address] Esthela Saenz [Catalytic activity/Vol]37 U/AHyoshk88-83Hlx [facility] HospitalComment on above:Performed By: #### LIPA, CMP #### [facility] [address] [place] [address] Dr. Esthela Knutsonon gap [Moles/Vol]14.0 mmol/LNormalThe [facility] Comment on above:Performed By: #### LIPA, CMP #### [facility] [address] [place] [address] Dr. Esthela StevensAST [Catalytic activity/Vol]14 U/LCritically vyk23-12Nil [facility] HospitalComment on above:Performed By: #### LIPA, CMP #### [facility] [address] [place] [address] Dr. Esthela StevensBilirubin [Mass/Vol]0.2 mg/dLNormal0.2-1.0The [facility] Comment on above:Performed By: #### LIPA, CMP #### [facility] [address] [place] [address] Dr. Esthela StevensCalcium [Mass/Vol]8.9 mg/dLNormal8.5-10.1The [facility] Comment on above:Performed By: #### LIPA, CMP #### [facility] [address] [place] [address] Dr. Esthela StevensChloride [Moles/Vol]103 mmol/WHgyngy03-388Djq [facility] Comment on above:Performed By: #### LIPA, CMP #### [facility] [address] [place] [address] Dr. Esthela StevensCO2 [Moles/Vol]25.2 mmol/EGjbvzs08.0-32.0The [facility] Comment on above:Performed By: #### LIPA, CMP #### [facility] [address] [address] [address] Esthela StevensCreatinine [Mass/Vol]0.72 mg/dLNormal0.55-1.02The [facility] HospitalComment on above:Performed By: #### LIPA, CMP #### [facility] [address] [address] [address] Esthela RicciGFR-AF ECUADOREAN>60Normal>=60The [facility] HospitalComment on above:Performed By: #### LIPA, CMP #### [facility] [address] [place] [address] Dr. Esthela Peña-NON AF ECUADOREAN>60Normal>=60The [facility] HospitalComment on above:Performed By: #### LIPA, CMP #### [facility] [address] [place] [address] Dr. Esthela StevensGlobulin (S) [Mass/Vol]3.7 g/dLNormalThe [facility] HospitalComment on above:Performed By: #### LIPA, CMP #### [facility] [address] [place] [address] Dr. Esthela StevensGlucose [Mass/Vol]101 mg/dLNqkaim85-622Cmm [facility] Comment on above:Performed By: #### LIPA, CMP #### [facility] [address] [place] [address] Dr. Esthela StevensPotassium [Moles/Vol]4.2 mmol/LNormal3.5-5.1The [facility] Comment on above:Performed By: #### LIPA, CMP #### [facility] [address] [place] [address] Dr. Esthela StevensProtein [Mass/Vol]7.5 g/dLNormal6.4-8.2The [facility] Comment on above:Performed By: #### LIPA, CMP #### [facility] [address] [address] [address] Esthela Perezdium [Moles/Vol]138 mmol/NDjetjl416-263Ebx [facility] Comment on above:Performed By: #### LIPA, CMP #### [facility] [address] [address] [address] Esthela Jaquez nitrogen [Mass/Vol]11.0 mg/dLNormal7.0-18.0The [facility] HospitalComment on above:Performed By: #### LIPA, CMP #### [facility] [address] [address] [address] Esthela Jaquez nitrogen/Creatinine [Mass ratio]15.3 mg/mgNoBarberton Citizens Hospitale [facility] HospitalComment on above:Performed By: #### ALEX, CMP #### [facility] [address] [place] [address] Dr. Esthela Bhatia MICROSCOPIC ONLYon 04-21-0363IXLDPNVZCATQ SEENNormalNONE SEENThe [facility] HospitalComment on above:Performed By: #### CRISTOPHER UMICRO #### [facility] [address] [place] [address] Dr. Esthela Wolfe identified Cx Nom (U)NOT INDICATEDNoSelect Medical Specialty Hospital - YoungstownComment on above:Performed By: #### CRISTOPHER UMICRO #### [facility] [address] [place] [address] Dr. Esthela Beard SEENNormalNONE SEENTrinity Health System Twin City Medical CenterComment on above:Performed By: #### CRISTOPHER UMICRO #### [facility] [address] [address] [address] Esthela Mitchell LM Nom (Urine sed)NONE SEENNormalNONE SEENTrinity Health System Twin City Medical CenterCombaraga county memorial hospital on above:Performed By: #### CRISTOPHER, UMICRO #### [facility] [address] [place] [address] Dr. Proctor ChangEpithelial cells LM Ql (Urine sed)FEWAbnormalNONE SEEN /RAREThe [facility]S HospitalComment on above:Performed By: #### ERUR, UMICRO #### [facility] [address] [address] [address] Esthela StevensMUCOUSKIMBERLY SEENNormalNONE SEENThe [facility] HospitalComment on above:Performed By: #### ERUR, UMICRO #### [facility] [address] [address] [address] Esthela StevensLdcujBJA4-4Fitzgg1-4Gkj [facility] HospitalComment on above:Performed By: #### ERUR, UMICRO #### [facility] [address] [address] [address] Esthela StevensWBC2-5AbnormalNONE SEENThe [facility] HospitalComment on above: Performed By: #### ERUR, UMICRO #### [facility] [address] [address] [address] Esthela StevensPregnancy Test, Urineon 56-61-3393Iwnz HCG ( test) Ql (U)[facility] HospitalKwelia [employer] Other Urinalysis - AUTOMATEDon 24-38-7303Ggutgwfkxu (U)clear [employer] Other Bilirubin Ql (U)[facility] HospitalKwelia [employer] Other Color (U)yellowVolcano [employer] Other Glucose Ql (U)[facility] [employer] Other Hemoglobin Ql (U)NegativeKwelia [employer] Other Ketones Ql (U)15Nbarton county memorial hospital [employer] Other Leukocyte esterase Test strip Ql (U)Auto I.D.Kwelia [employer] Other Nitrite Ql (U)[facility] HospitalKwelia [employer] Other pH (U)7.0 [pH][employer] Other Protein Ql (U)[facility] HospitalJK [employer] Other Specific gravity (U) [Rel density]1.020[employer] Other Urobilinogen (U) [Mass/Vol]0.2 mg/dLBrandShield Other Urinalysis - AUTOMATEDBrandShield Other Coding Summary.on 33-47-9507Qtdfxj Summary. CD:[id number]:[id number]+PGhlYWQ+ER9PBWVkM02xsOCazS5MZ5yDVJ9XZLTNVTFVPW3CQE7ub OT1VLgbT5KvfhHc [file] cHNl (more content not included)...Samaritan HospitalConsent for Treatmenton 71-12-9455Gwoyjcj for Treatment [id number]#1.00CD:[address] [place], [place] [address]Discharge Instructionson 47-49-1095Ezxqitgnf Instructions [id number]#1.00CD:127[facility] Clinical Summaryon 95-01-6923NC Clinical Summary [address] [address] ED Clinical Summary Person Information Name: ZAINAB GRANADOS Johanna/[facility] Age: 25 Years : 1995 Sex: Female Language: Mozambican PCP: ERIN WHITESIDE CNP Marital Status: Single Visit Id: Visit [...] 02/17/2021 11:52:53 02/17/2021 11:52:53 02/17/2021 11:52:53 ADDRESS: [address] [place] [id number] [facility] DOC NOTES: MEDICAL INFORMATION: Prescriptions Given: New Medications Printed Prescriptions lorazepam (Ativan 1 mg Tab) 1 Tablets By Mouth every 8 hours for 2 Days. Take one by mouth every eight hours as needed. Refills: 0. PATIENT EDUCATION INFORMATION: Instructions: Suicidal Feelings: How to Help Yourself; Managing Anxiety, Adult Follow up: With: Address: When: [facility] In day 02/18/2021 With: Address: When: ERIN WHITESIDE [address] [place] [address] [phone] Business (1) In 3 days DIAGNOSIS: Anxiety; Suicidal ideationNormalFisher Severino Medical CenterED Note-Physicianon 16-14-6221HI Note-PhysicianBasic Information Time Seen: Vinicius Childers DO 02/17/2021 [...] says that she is feeling depressed and anxiousbut a bit paranoid as well. She has had a couple of thoughts of self-harm but nothing today she hasno plan for suicide. Patient does have history of borderline personality disorder in addition to anxiety and depression she has been taking her Abilify as prescribed by her primary care physician. Patient denies any other significant past medical history she is not complaining of any abdominal painchest pain shortness of breath cough or fevers. She has been vaccinated against COVID-19 and has no symptoms to suggest this. She denies any chance of stating recent completion of her menstrual cycle. No other aggravating or relieving factors no other associated symptoms no other prior treatments orcomplaints. Family: Reviewed and noncontributory Social: lives at [...] Oral, q8hr Follow-up With When Contact Information [facility] In 1 day 02/18/2021 EDT Additional Instructions: ERIN WHITESIDE In 3 days [address] [facility], [place] [phone] Business (1) Additional Instructions: Patient Education Suicidal Feelings: How to Help Yourself Managing Anxiety, Adult Problem List/Past Medical History Ongoing No qualifying data Historical No qualifying data Medications Inpatient No active inpatient medications Home No active home medications Allergies No Known Medication Allergies Lab Results No qualifying data available. Diagnostic Results No qualifying data available.[facility]aritan HospitalComment on above: Result Comment: Electronically Signed By: Vinicius Childers DO\.jim\Date and Time Signed: 02/17/21 11:41EDTED Patient Education Noteon 94-44-4924GQ Patient Education NoteMental and Behavioral Health Suicidal Feelings: How to [...] or have thoughts about taking your own life,get help right away. To get help: ? Call your local emergency services (911 in the [place] ? The [facility] and human services helpline (211 in the [place] ? Go to your nearest emergency department. ? Call a suicide hotline to speak with a trained counselor. The following suicide hotlines are available in the [place]: ? 5-497-728-TALK ( ). ? 2-435-LRQFVPV ( ). ? . This is a hotline for Croatian speakers. ? . This is a hotline for TTY users. ? 7-671-2-U-SE ( ). This is a hotline for lesbian, escobar, bisexual, transgender, or questioning youth. ? For a list of hotlines in [place], visit www.suicide.org/hotlines/international/kfhxal-ybuvgcy-wjmemoix.html ? Contact a crisis center or a local suicide prevention center. To find a crisis center or suicide prevention center: ? Call your local hospital, clinic, community service organization, mental health center, social service provider, or health department. Ask for help with connecting to a crisis center. ? For a list of crisis centers in the [place], visit: suicidepreventionlifeline.org ? For a list of crisis centers in [place], visit: suicideprevention.ca How to help yourself feel better ? Promise yourself that you will not do anything extreme when you have suicidal feelings. Remember,there is hope. Many people have gotten through [...] even if you do not feel sociable. Ooib-gu-eril conversation is best to help them understand your feelings. ? Contact a mental health care provider and work with this person regularly. ? Make a safety plan that you can follow during a crisis. Include phone numbers of suicide prevention hotlines, mental health professionals, and trusted friends and family members you can call duringan emergency. Save these numbers on your phone. ? If you are thinking of taking a lot of medicine, give your medicine to someone who can give it toyou as prescribed. If you are on antidepressants [...] can help you feel better. ? Take fmti-sbg-fofjubd and prescription medicines only as told by [...] with help. Conditions can be treated, and youcan learn behaviors and ways of thinking that will help you. Where to find more information ? National Suicide Prevention Lifeline: www.suicidepreventionlifeline.org ? Hopeline: www.hopeline.com ? [place] Foundation for Suicide Prevention: www.afsp.org ? The Se Project (for lesbian, escobar, bisexual, transgender, or questioning youth): www.Manzamavorproject.org Contact a health care provider if: ? You feel as though you are a burden to others. ? You feel agitated, angry, vengeful, or have extreme mood swings. ? You have withdrawn from family and friends. Get (more content not included)...[facility]Prem[facility] Patient Summaryon [id number] Patient Summary [place] [id number] Patient Discharge Instructions Person Information Name: ZAINAB GRANADOS Age: 25 Years Arrival Date: 02/17/2021 09:42:11 Discharge Diagnosis: Anxiety; Suicidal ideation Primary Care Physician: ERIN WHITESIDE CNP Provider Information Primary Provider: Vinicius Childers DO Advanced Fashion Director Party Plan Sales:None The exam and treatment you received in the Emergency Department were for an urgent problem and are not intended as complete care. It is important that you follow up with a doctor, nurse practitioner,or physician?s assistant men's soccer coach for ongoing care. If your symptoms become worse or you do not improve as expected and you are unable to reach your usual health care provider, you should return to the Emergency Department. We are available 24 hours a day. ZAINAB GRANADOS has been given the following list of patient education materials, prescriptions and follow-up instructions: Follow-up Instructions: With: Address: When: [facility] In 1 day 02/18/2021 With: Address: When: ERIN WHITESIDE [address] [place] [place] [address] [phone] Business (1) In 3 days In the [...] opioids can be used to help relieve nsezwpwm-zx-wdsfsw pain and are often prescribed following a [...] and have fewer risks and side effects. Optionsmay include: ? Pain relievers such as acetaminophen, [...] unused prescription opioids: Find your community drug take- back program or yourpharmacy mail-back program, or flush them down the toilet, following guidance from the Food and Drug Administration (www.fda.gov/Drugs/ResourcesForYou). ? Visit www.cdc.gov/drugoverdose to learn about the risks of opioids abuse and overdose. ? If you believe you may be struggling with addiction, tell your health care professio (more content not included)...[facility] Valuables Checkliston 90-32-1326Axilczvlm Checklist [id number]#1.00CD:127No[facility] Vital Signs Date TimeVital SignValuePerforming VtbcdyqsyHvlxyexj86-28-4707 10:51-0400Body mass index (BMI) [Ratio]26.84 kg/z0NswfbN-Sided Work Phone: [facility]te[facility]utdj79[facility]-9107 10:51-0400Body oxhzsi82.72 kgCorey AldenPictureHealing Work Phone: [facility] HospitalYdtvifgfdt36-05-4202 10:51-0400Diastolic blood gpqynixi11 mm[Hg][facility] Work Phone: [facility] HospitalPfzklqsyja59-06-7636 10:51-0400Systolic blood mm[Hg][facility] Work Phone: [facility] HospitalHjofqmgjxu70-58-3992 09:58-0400Diastolic blood qskntrhi25 mm[Hg]Christopher Moralez APRN-RETAIL WIRELESS SALES REPRESENTATIVE Work Phone: [facility]07-07-2025 09:58-0400Systolic blood pgssaufm801 mm[Hg]Christopher Moralez APRN-RETAIL WIRELESS SALES REPRESENTATIVE Work Phone: [facility]06-05-2025 08:59-0400Body mass index (BMI) [Ratio]28.61 kg/d1CelwrqsNadege Pleitez MD Work Phone: [facility]06-05-2025 08:59-0400Body uuxrxu14.67 kgNadege Pleitez MD Work Phone: [facility]06-05-2025 08:59-0400 Diastolic blood xybdvzyq74 mm[Hg]Nadege Pleitez MD Work Phone: [facility]06-05-2025 08:59-0400Heart rate88 /Neeta Pleitez MD Work Phone: [facility]06-05-2025 08:59-0400 Respiratory rate16 /Neeta Pleitez MD Work Phone: [facility]06-05-2025 08:59-7326RrI8% (BldA) [Mass fraction]99 %Nadege Pleitez MD Work Phone: [facility]06-05-2025 08:59-0400Systolic blood ehgtbkdy569 mm[Hg]Nadege Pleitez MD Work Phone: [facility]2025 11:19-0400Body mass index (BMI) [Ratio]26.66 kg/g9Tfpgx Alden DO Work Phone: [facility] HospitalNtrzkfcxdz31-48-0287 11:19-0400Body batwrf26.27 kgCorey Alden DO Work Phone: [facility] HospitalChoubnpapn60-66-0863 11:19-0400Diastolic blood ejihijpt24 mm[Hg]Ron Alden DO Work Phone: 1(311)787-[facility] HospitalEhiuodecou98-42-5512 11:19-0400Systolic blood sylzsdvo313 mm[Hg]Ron Alden DO Work Phone: 0(863)087-[facility] HospitalNjfuzapoob90-24-0056 10:30-0400Body mass index (BMI) [Ratio]26.82 kg/f4Uuqrr Alden DO Work Phone: [facility] HospitalCeapmfzbzc08-95-0405 10:30-0400Body .67 kgCorey Alden DO Work Phone: [facility] HospitalWmoyzihzbg77-86-5386 10:30-0400Diastolic blood cdhginou03 mm[Hg]Ron Alden DO Work Phone: [facility] HospitalNkrhozzsem01-08-9532 10:30-0400Systolic blood yvpvpvxa260 mm[Hg]Ron Alden DO Work Phone: [facility] HospitalYsezzilwdd78-08-0475 14:54-0400Body .[address] MD Work Phone: 1(621)[address] [place], [place] 7207404-24-2025 14:54-0400Body mass index (BMI) [Ratio]29.29 kg/i3LnuwfYadira Lane MD Work Phone: 1(418)[address] [place], [place] 7207404-24-2025 14:54-0400Body rojybwazbsx06.91 [degF]Yadira Lane MD Work Phone: 1(090)[address] [place], [place] 7207404-24-2025 14:54-0400Body .[address] MD Work Phone: 1(763)[address] [place], [place] 7207404-24-2025 14:54-0400 Diastolic blood mm[Hg]Yadira Lane MD Work Phone: 1(308)[address] [place], [place] 7207404-24-2025 14:54-0400Heart rate78 /minYadira Lane MD Work Phone: 1(121)[address] [place], [place] 7207404-24-2025 14:54-0400 Respiratory rate14 /minYadira Lane MD Work Phone: 1(221)[address] [place], [place] 7207404-24-2025 14:54-9279AzG4% (BldA) [Mass fraction]97 %Yadira Lane MD Work Phone: 1(996)[address] [place], [place] 7207404-24-2025 14:54-0400Systolic blood hhtkzrul112 mm[Hg]Yadira Lane MD Work Phone: 1(850)[address] [place], [place] 7207403-03-2025 12:35-0500Body mass index (BMI) [Ratio]29.83 kg/m2Ye Kirt BREAD OVEN OPERATOR-RETAIL WIRELESS SALES REPRESENTATIVE Work Phone: 1([phone]03-03-2025 12:35-0500Body mlbodg16.67 kgYe Kirt BREAD OVEN OPERATOR-RETAIL WIRELESS SALES REPRESENTATIVE Work Phone: 1(266)[facility]4969[facility]03-03-2025 12:35-0500 Diastolic blood tyzdpvgs84 mm[Hg]Christopher Moralez BREAD OVEN OPERATOR-RETAIL WIRELESS SALES REPRESENTATIVE Work Phone: 1(344)[facility]69[facility]03-03-2025 12:35-0500Heart rate82 /minYe Kirt BREAD OVEN OPERATOR-RETAIL WIRELESS SALES REPRESENTATIVE Work Phone: 1(052)[facility]4969[facility]03-03-2025 12:35-0500Systolic blood mm[Hg]Christopher Moralez BREAD OVEN OPERATOR-RETAIL WIRELESS SALES REPRESENTATIVE Work Phone: 1(213)[facility]00[facility]01-30-2025 13:52-0500Body mass index (BMI) [Ratio]28.36 kg/m2Amy Rachelle PA Work Phone: 1(541)[address]01-30-2025 13:52-0500Body magbtq72.63 kgAmy Rachelle PA Work Phone: 1(695)[address] [place], [place] 9364301-30-2025 13:52-0500Diastolic blood njfvrwym67 mm[Hg]Elayne Bush PA Work Phone: 1(723)[address]01-30-2025 13:52-0500Systolic blood peilvood584 mm[Hg]Elayne Bush PA Work Phone: 1(528)[address] [place], [place] 9364309-26-2024 18:10-0400Diastolic blood hrdgqygx24 mm[Hg]Andreas Ortega MD, MPH Work Phone: 1(475)9955028[facility]09-26-2024 18:10-0400Heart rate72 /minAndreas Ortega MD, MPH Work Phone: 1(991)960[facility]05[facility]09-26-2024 18:10-0400Systolic blood mm[Hg]Andreas Ortega MD, MPH Work Phone: [facility]09-26-2024 10:24-0400Body zucjcj506.9 cmAurelia Chakraborty BREAD OVEN OPERATOR-RETAIL WIRELESS SALES REPRESENTATIVE Work Phone: [facility]09-26-2024 10:24-0400Body mass index (BMI) [Ratio]29.66 kg/b9GfbnhscAurelia Chakraborty BREAD OVEN OPERATOR-RETAIL WIRELESS SALES REPRESENTATIVE Work Phone: [facility]09-26-2024 10:24-0400Body .22 kgAurelia Chakraborty BREAD OVEN OPERATOR-RETAIL WIRELESS SALES REPRESENTATIVE Work Phone: [facility]09-26-2024 10:24-0400Diastolic blood mm[Hg]Aurelia Chakraborty BREAD OVEN OPERATOR-RETAIL WIRELESS SALES REPRESENTATIVE Work Phone: [facility]09-26-2024 10:24-0400Heart rate 79 /minAurelia Chakraborty BREAD OVEN OPERATOR-RETAIL WIRELESS SALES REPRESENTATIVE Work Phone: [facility]09-26-2024 10:24-0400Systolic blood rqvktiqo056 mm[Hg]Aurelia Chakraborty BREAD OVEN OPERATOR-RETAIL WIRELESS SALES REPRESENTATIVE Work Phone: [facility]07-22-2024 12:49-0400Diastolic blood pjzeilns35 mm[Hg]Christopher Moralez BREAD OVEN OPERATOR-RETAIL WIRELESS SALES REPRESENTATIVE Work Phone: [facility]07-22-2024 12:49-0400Heart rate58 /minChristopher Moralez BREAD OVEN OPERATOR-RETAIL WIRELESS SALES REPRESENTATIVE Work Phone: [facility]07-22-2024 12:49-0400Systolic blood rehvimdi076 mm[Hg]Christopher Moralez BREAD OVEN OPERATOR-RETAIL WIRELESS SALES REPRESENTATIVE Work Phone: [facility]07-22-2024 08:42-0400Blood Pressure LocationCrystal Clinic Orthopedic Centermilla Ruvalcabaminroxana [phone]-AkdecThe [facility] Hospital Digestive Hnffit71-70-9166 08:42-0400Diastolic blood eqogcaza62 mm[Hg]Diego Ruvalcabamini 805-7236Znzdzq-KtyicSt. [facility]07-22-2024 08:42-0400Heart rate70 /minMuhammad Sarmini 249-6739Chhkzm-KgcxlSt. [facility]07-22-2024 08:42-0400Respiratory rate18 /minMuhammad Sarmini [phone]-AivnuSt. Mary'S Medical Center07-22-2024 08:42-0400Systolic blood uebrgnmh518 mm[Hg]Cortez Jordonmini 660-5119Mbqlkk-KtwflSt. Mary'S Medical Center06-20-2024 15:06-0400Body mokuzw146 cmVinicius Gomes MD, PhD Work Phone: 1(532)[facility]29[facility]06-20-2024 15:06-0400Body mass index (BMI) [Ratio]29.57 kg/m2Vinicius Gomes MD, PhD Work Phone: 1(560)[address] [place], [place] 7212106-20-2024 15:06-0400Body vkgzqxnfjlu52.9 [degF]Vinicius Gomes MD, PhD Work Phone: 1(648)[address] [place], [place] 7212106-20-2024 15:06-0400Body nokhrv01.03 kgVinicius Gomes MD, PhD Work Phone: 1(296)[facility]29[facility]06-20-2024 15:06-0400 Diastolic blood qtywyhwe95 mm[Hg]Vinicius Gomes MD, PhD Work Phone: 1(054)[facility]29[facility]06-20-2024 15:06-0400Heart rate65 /Deborah Gomes MD, PhD Work Phone: 1(375)[facility]29[facility]06-20-2024 15:06-0400 Respiratory rate16 /Deborah Gomes MD, PhD Work Phone: 1(410)[facility]29[facility]06-20-2024 15:06-3376UwI1% (BldA) [Mass fraction]99 %Vinicius Gomes MD, PhD Work Phone: 1(772)[facility]6529[facility]06-20-2024 15:06-0400Systolic blood ycdqbdqk609 mm[Hg]Vinicius Gomes MD, PhD Work Phone: 1(536)[facility]6529[facility]05-10-2024 09:32-0400Body tgqypt370.9 cmKathy Johnson BREAD OVEN OPERATOR-RETAIL WIRELESS SALES REPRESENTATIVE Work Phone: 1(318)[facility]6255[facility]05-10-2024 09:32-0400Body mass index (BMI) [Ratio]30.61 kg/s5Wzbef Johnson BREAD OVEN OPERATOR-RETAIL WIRELESS SALES REPRESENTATIVE Work Phone: 1(440)[address] [place], [place] 4021805-10-2024 09:32-0400Body mseakh58.48 kgKathy Johnson BREAD OVEN OPERATOR-RETAIL WIRELESS SALES REPRESENTATIVE Work Phone: 1(034)[address] [place], [place] [address]05-10-2024 09:32-0400 Diastolic blood mm[Hg]Dolores Johnson BREAD OVEN OPERATOR-RETAIL WIRELESS SALES REPRESENTATIVE Work Phone: 1(684)[address] [place], [place] [address]05-10-2024 09:32-0400Heart rate65 /minKathy Johnson BREAD OVEN OPERATOR-RETAIL WIRELESS SALES REPRESENTATIVE Work Phone: 1(829)[address] [place], [place] 4021805-10-2024 09:32-0400 Respiratory rate16 /minKathy Johnson BREAD OVEN OPERATOR-RETAIL WIRELESS SALES REPRESENTATIVE Work Phone: 1(057)[address] [place], [place] [address]05-10-2024 09:32-6836BvV8% (BldA) [Mass fraction]98 %Dolores Johnson BREAD OVEN OPERATOR-RETAIL WIRELESS SALES REPRESENTATIVE Work Phone: 1(875)[address] [place], [place] [address]05-10-2024 09:32-0400Systolic blood mm[Hg]Dolores Johnson BREAD OVEN OPERATOR-RETAIL WIRELESS SALES REPRESENTATIVE Work Phone: 1(655)[address] [place], [place] [address]02-06-2024 10:09-0500Body mass index (BMI) [Ratio]32.44 kg/e8Ycebq Alden DO Work Phone: [facility] HospitalUyzbfnjgqe26-12-7701 10:09-0500Body oagepp29.06 kgCorey Alden DO Work Phone: [facility] HospitalMktyzamhqk31-21-1513 10:09-0500Diastolic blood vacnxjck73 mm[Hg]Ron Alden DO Work Phone: [facility] HospitalJvkzxnszyb38-48-1373 10:09-0500Systolic blood mm[Hg]Ron Alden DO Work Phone: [facility] HospitalZxcucmgroo97-46-7658 09:53-0400Body ekgqoj994.9 Garrett Vigil BREAD OVEN OPERATOR-RETAIL WIRELESS SALES REPRESENTATIVE Work Phone: [facility]05-25-2023 12:07-0400Body nivqmz802.2 Lynne Hugo MD, PhD Work Phone: 1(025)[address] [place], [place] [address]Comment on above:without -14-3797 12:07-0400Body mass index (BMI) [Ratio]30.64 kg/m2Archie Hugo MD, PhD Work Phone: 1(247)[address] [place], [place] 9857705-25-2023 12:07-0400Body diwprtnstuf03.81 [degF]Archie Hugo MD, PhD Work Phone: 1(780)[address] [place], [place] 9857705-25-2023 12:07-0400Body fvuyzv71.8 kgArchie Hugo MD, PhD Work Phone: 1(183)[address] [place], [place] [address]Comment on above:without ittop34-78-2870 12:07-0400Diastolic blood nwysnehs11 mm[Hg]Archie Hugo MD, PhD Work Phone: 1(259)[address] [place], [place] 9857705-25-2023 12:07-0400Heart rate77 /Alisha Hugo MD, PhD Work Phone: 1(970)[address] [place], [place] 9857705-25-2023 12:07-0400 Respiratory rate14 /minArchie Hugo MD, PhD Work Phone: 1(950)[address] [place], [place] 9857705-25-2023 12:07-6319StX7% (BldA) [Mass fraction]99 %Archie Hugo MD, PhD Work Phone: 1(577)[address] [place], [place] [address]Comment on above:room air 12-10-2022 12:07-0400Systolic blood wydbnibc140 mm[Hg]Archie Hugo MD, PhD Work Phone: 1(035)[facility]71[facility]04-06-2023 13:57-0400Body zezkmk097.9 cmAisabella Suero MD Work Phone: 1(897)[address] [place], [place] 3056804-06-2023 13:57-0400Body mass index (BMI) [Ratio]30.33 kg/e1LrufdRebekah Suero MD Work Phone: 1(069)[address] [place], [place] 3056804-06-2023 13:57-0400Body dioitbfouux92.59 [degF]Rebekah Suero MD Work Phone: 1(070)[address] [place], [place] 3056804-06-2023 13:57-0400Body .8 kgRebekah Suero MD Work Phone: 1(125)[address] [place], [place] 3056804-06-2023 13:57-0400 Diastolic blood lvrcoizx67 mm[Hg]Rebekah Suero MD Work Phone: 1(254)[address] [place], [place] 3056804-06-2023 13:57-0400Heart rate62 /Freddie Suero MD Work Phone: 1(175)[address] [place], [place] 3056804-06-2023 13:57-0400 Respiratory rate20 /Freddie Suero MD Work Phone: 1(585)[address] [place], [place] 3056804-06-2023 13:57-2075DrF7% (BldA) [Mass fraction]99 %Rebekah Suero MD Work Phone: 1(020)[address] [place], [place] 3056804-06-2023 13:57-0400Systolic blood ehhanzmk907 mm[Hg]Rebekah Suero MD Work Phone: 1(438)[address] [place], [place] 3056804-06-2023 10:19-0400Body yvyisr187.5 cmYe Kirt BREAD OVEN OPERATOR-RETAIL WIRELESS SALES REPRESENTATIVE Work Phone: 1([phone]04-06-2023 10:19-0400Body mass index (BMI) [Ratio]28.66 kg/m2Ye Kirt BREAD OVEN OPERATOR-RETAIL WIRELESS SALES REPRESENTATIVE Work Phone: 1(631)[facility]4969[facility]04-06-2023 10:19-0400Body sowndi69.1 kgYe Kirt BREAD OVEN OPERATOR-RETAIL WIRELESS SALES REPRESENTATIVE Work Phone: 1(190)[facility]4969[facility]04-06-2023 10:19-0400 Diastolic blood jiedwdrb78 mm[Hg]Christopher Moralez BREAD OVEN OPERATOR-RETAIL WIRELESS SALES REPRESENTATIVE Work Phone: 1(334)[facility]4969[facility]04-06-2023 10:19-0400Systolic blood mm[Hg]Christopher Moralez BREAD OVEN OPERATOR-RETAIL WIRELESS SALES REPRESENTATIVE Work Phone: 1(162)[facility]4969[facility]04-06-2023 07:38-0400Body .5 cmYe Kirt BREAD OVEN OPERATOR-RETAIL WIRELESS SALES REPRESENTATIVE Work Phone: 1(590)2934969[facility]04-06-2023 07:38-0400 Diastolic blood hidvzpuk70 mm[Hg]Christopher Moralez BREAD OVEN OPERATOR-RETAIL WIRELESS SALES REPRESENTATIVE Work Phone: 1(065)[facility]4969[facility]04-06-2023 07:38-0400Heart rate73 /minYe Kirt BREAD OVEN OPERATOR-RETAIL WIRELESS SALES REPRESENTATIVE Work Phone: 1(486)2934969[facility]04-06-2023 07:38-0400Systolic blood jinxkbxt876 mm[Hg]Christopher Moralez BREAD OVEN OPERATOR-RETAIL WIRELESS SALES REPRESENTATIVE Work Phone: 1(112)2934969[facility]03-22-2023 11:05-0400Body lqcetl064.5 cmYe Kirt BREAD OVEN OPERATOR-RETAIL WIRELESS SALES REPRESENTATIVE Work Phone: 1(565)2934969[facility]03-22-2023 11:05-0400Body mass index (BMI) [Ratio]28.66 kg/m2Ye Kirt BREAD OVEN OPERATOR-RETAIL WIRELESS SALES REPRESENTATIVE Work Phone: 1(512)[facility]4969[facility]03-22-2023 11:05-0400Body lfiyhkqnnjj96.2 [degF]Christopher Moralez BREAD OVEN OPERATOR-RETAIL WIRELESS SALES REPRESENTATIVE Work Phone: 1(799)[facility]69[facility]03-22-2023 11:05-0400Body .08 kgYe Kirt BREAD OVEN OPERATOR-RETAIL WIRELESS SALES REPRESENTATIVE Work Phone: 1(124)[address] [place], [place] 0750303-22-2023 11:05-0400 Diastolic blood yhikzmbo49 mm[Hg]Christopher Kirt BREAD OVEN OPERATOR-RETAIL WIRELESS SALES REPRESENTATIVE Work Phone: 1(892)[facility]69[facility]03-22-2023 11:05-0400Heart rate81 /minYe Kirt BREAD OVEN OPERATOR-RETAIL WIRELESS SALES REPRESENTATIVE Work Phone: 1(259)[facility]69[facility]03-22-2023 11:05-0400 Respiratory rate16 /minYe Kirt BREAD OVEN OPERATOR-RETAIL WIRELESS SALES REPRESENTATIVE Work Phone: 1(659)[address] [place], [place] 0750303-22-2023 11:05-8267RbR3% (BldA) [Mass fraction]99 %Christopher Moralez BREAD OVEN OPERATOR-RETAIL WIRELESS SALES REPRESENTATIVE Work Phone: 1(596)[facility]69[facility]03-22-2023 11:05-0400Systolic blood njibncud197 mm[Hg]Christopher Kirt BREAD OVEN OPERATOR-RETAIL WIRELESS SALES REPRESENTATIVE Work Phone: 1(933)[facility]69[facility]02-01-2023 15:43-0500 Diastolic blood igifqoho48 mm[Hg]Andreas Ortega MD, MPH Work Phone: 1(478)[address] [place], [place] 9858702-01-2023 15:43-0500Systolic blood ntknquez811 mm[Hg]Andreas Ortega MD, MPH Work Phone: 1(553)[address] [place], [place] 9858712-21-2022 07:50-0500Body irzajz141.5 cmAndreas Ortega MD, MPH Work Phone: 1(141)[address] [place], [place] 9858712-21-2022 07:50-0500Body mass index (BMI) [Ratio]28.73 kg/o3WvexuhyAndreas Ortega MD, MPH Work Phone: 1(324)[address] [place], [place] 9858712-21-2022 07:50-0500Body zeucsbvyowa99.01 [degF]Andreas Ortega MD, MPH Work Phone: 1(456)[address] [place], [place] 9858712-21-2022 07:50-0500Body shuzwb69.26 kgAndreas Ortega MD, MPH Work Phone: 1(690)[address] [place], [place] 9858712-21-2022 07:50-0500 Diastolic blood ftiaobfx11 mm[Hg]Andreas Ortega MD, MPH Work Phone: 1(786)[address] [place], [place] 9858712-21-2022 07:50-0500Heart rate73 /minAndreas Ortega MD, MPH Work Phone: 1(973)[address] [place], [place] 9858712-21-2022 07:50-0500 Respiratory rate16 /minAndreas Ortega MD, MPH Work Phone: 1(342)[address] [place], [place] 9858712-21-2022 07:50-6976TjH3% (BldA) [Mass fraction]98 %Andreas Ortega MD, MPH Work Phone: 1(666)[address] [place], [place] 9858712-21-2022 07:50-0500Systolic blood ipkcthjj714 mm[Hg]Andreas Ortega MD, MPH Work Phone: 1(451)[address] [place], [place] 9858711-22-2022 13:10-0500Body mass index (BMI) [Ratio]29.3 kg/j1Dolzv [facility] Work Phone: 1(912)[address] [place], [place] 9857711-22-2022 13:10-0500Body ppvaedhstts84.6 [degF]Raina [facility] Work Phone: 1(047)[address] [place], [place] 9857711-22-2022 13:10-0500Body .[address] [facility] Work Phone: 1(392)[address] [place], [place] 9857711-22-2022 13:10-0500 Diastolic blood qubbgidl89 mm[Hg]Raina [place] BREAD OVEN OPERATOR-RETAIL WIRELESS SALES REPRESENTATIVE Work Phone: 1(860)[address] [place], [place] 9857711-22-2022 13:10-0500Heart rate80 /minRaina [facility]-RETAIL WIRELESS SALES REPRESENTATIVE Work Phone: 1(565)[address] [place], [place] 9857711-22-2022 13:10-0500 Respiratory rate16 /minKatjelly [facility] HospitalN-RETAIL WIRELESS SALES REPRESENTATIVE Work Phone: 1(926)[address] [place], [place] 9857711-22-2022 13:10-4523BaJ1% (BldA) [Mass fraction]98 %Raina [facility] HospitalNRETAIL WIRELESS SALES REPRESENTATIVE Work Phone: 1(209)[address] [place], [place] 9857711-22-2022 13:10-0500Systolic blood hblclxou888 mm[Hg]Raina [facility]-RETAIL WIRELESS SALES REPRESENTATIVE Work Phone: 1(611)[address] [place], [place] 9857711-11-2022 07:32-0500Body ygroyspdnvp37.01 [degF]Archie Hugo MD, PhD Work Phone: 1(624)[address] [place], [place] 9857711-11-2022 07:32-0500 Diastolic blood wrgwglri43 mm[Hg]Archie Hugo MD, PhD Work Phone: 1(093)[address] [place], [place] 9857711-11-2022 07:32-0500Heart rate77 /Alisha Hugo MD, PhD Work Phone: 1(831)[address] [place], [place] 9857711-11-2022 07:32-0500 Respiratory rate16 /Alisha Hugo MD, PhD Work Phone: 1(477)[address] [place], [place] 9857711-11-2022 07:32-7223PuU8% (BldA) [Mass fraction]99 %Archie Hugo MD, PhD Work Phone: 1(088)[address] [place], [place] 9857711-11-2022 07:32-0500Systolic blood nlqydjre965 mm[Hg]Archie Hugo MD, PhD Work Phone: 1(980)[address] [place], [place] 9857711-04-2022 15:50-0400Body smcfwo899.5 Lynne Hugo MD, PhD Work Phone: 1(141)[address] [place], [place] 9857711-04-2022 15:50-0400Body mass index (BMI) [Ratio]30.73 kg/m2Archie Hugo MD, PhD Work Phone: 1(027)[address] [place], [place] 9857711-04-2022 15:50-0400Body zevwme10.2 Jo Ann Hugo MD, PhD Work Phone: 1(085)[address] [place], [place] 9857709-13-2022 12:02-0400 Diastolic blood bdbaepzq78 mm[Hg][facility] Work Phone: 1(758)[address] [place], [place] 9857709-13-2022 12:02-0400Systolic blood iytstyoq580 mm[Hg][facility] hospital Work Phone: 1(000)[address] [place], [place] 9857709-13-2022 11:53-0400Body qhqloo902.5 [facility] Work Phone: 1(522)[address] [place], [place] 9857709-01-2022 15:37-0400Body .3 Lynne Hugo MD, PhD Work Phone: 1(046)[address] [place], [place] 9857709-01-2022 15:37-0400Body mass index (BMI) [Ratio]30.63 kg/m2Archie Hugo MD, PhD Work Phone: 1(963)[address] [place], [place] 9857709-01-2022 15:37-0400Body vrcsbnefoqa96.5 [degF]Archie Hugo MD, PhD Work Phone: 1(968)[address] [place], [place] 9857709-01-2022 15:37-0400Body pqodcp85.75 Jo Ann Hugo MD, PhD Work Phone: 1(040)[address] [place], [place] 9857709-01-2022 15:37-0400 Diastolic blood kodiijte79 mm[Hg]Archie Hugo MD, PhD Work Phone: 1(264)[address] [place], [place] 9857709-01-2022 15:37-0400Heart rate90 /Alisha Hugo MD, PhD Work Phone: [facility]09-01-2022 15:37-0400 Respiratory rate16 /Alisha Hugo MD, PhD Work Phone: [phone]09-01-2022 15:37-0507VgL3% (BldA) [Mass fraction]98 %Archie Hugo MD, PhD Work Phone: [phone]09-01-2022 15:37-0400Systolic blood suxrlnmq581 mm[Hg]Archie Hugo MD, PhD Work Phone: [phone]06-06-2022 18:05-0400Body .4 cmSstacey Lundberg Other [employer] Other 06-06-2022 18:05-0400Body mass index (BMI) [Ratio] 30.62 kg/b9Dndcwvpzicara Lundberg Other [employer] Other 06-06-2022 18:05-0400Body [degF] Ava Lundberg Other [employer] Other 06-06-2022 18:05-0400Body szsagt42.12 kgStcara Lundberg Other [employer] Other 06-06-2022 18:05-0400Diastolic blood uvyfrzph89 mm[Hg] Ava Lundberg Other [employer] Other 06-06-2022 18:05-0400Respiratory rate16 /minSstacey Lundberg Other [employer] Other 06-06-2022 18:05-4105BnM2% (BldA) [Mass fraction]99 % Ava Lundberg Other [place] hospital [employer] Other [id number] 18:05-0400Systolic blood fmycpkdx089 mm[Hg] Ava Lundberg Other [facility] [employer] Other Encounters Encounter DateEncounter TypeCare ProviderFacilityStart: 04-19-2025 End: 83-50-2637avvpiozvynSreznwhr Talal SarminiFacility:Rohit-Severino DHStart: 04-19-2025 End: 70-37-3303Gokkecx encounter procedureMuhammad Talal Sarmini [phone]-CiyqqThe [facility] Start: 04-04-2025 End: 62-79-4374wzuwmjvispZEISE FAZIONot AvailableStart: 03-21-2025 End: 13-97-4665chqrfuhuwbIczcmb Sue Cramer BANDAGE MAKER-C Work Phone: [facility] Work Phone: Start: 03-21-2025 End: 94-81-1092Ewxlafcr ReferredErin Whiteside RETAIL WIRELESS SALES REPRESENTATIVE-LAB Path Spec [place] HospStart: 03-08-2025 End: 49-43-5830uwkrvaurujLklqofwi Talal SarminiFacility:Rohit-Severino DHStart: 03-08-2025 End: 69-09-2043Fepgwug encounter procedureMuhammad Talal Sarmini [phone]-TjvyyThe [facility] Start: 02-07-2025 End: 48-88-9599Hufqgdmhp encounterGeneva Moncada RNDivision of Medical Oncology Comment on above:Outside Medical Records RequestStart: 02-01-2025 End: 97-64-1336pbjwpngvpoKRKYO FAZIONot AvailableStart: 02-01-2025 End: 67-28-4870Qfoywi outpatient visit 15 minutesCorey Alden DO Work Phone: noms BCP OBComment on above:Pre-op examination; Pelvic pain; Pelvic congestion syndromeStart: 02-01-2025 End: 79-55-4043Awdjjrvnpzhnd examination doneCorey Alden DO Work Phone: noms HealthcareStart: 08-18-0722qrtkilzuwpPF ZHOU Facility[facility]: 01-22-2025 End: 20-07-3326Pktsmlgnyh hospital visit by Milly Moralez BREAD OVEN OPERATOR-RETAIL WIRELESS SALES REPRESENTATIVE Work Phone: [facility] at [facility] CareComment on above: ArrivedStart: 10-80-7636swvcfqcrpuWW ZHOUFacility:[facility]ENTERtart: 01-22-2025 End: 75-66-7923Ercuytgo Support EncounterChristopher Moralez BREAD OVEN OPERATOR-RETAIL WIRELESS SALES REPRESENTATIVE Work Phone: Clinical Lab Isrrael Kang 1Comment on above:Primary malignant neuroendocrine tumor of appendixStart: 12-21-2024 End: 32-41-0421Vymeug consultation new/estab patient 62 Neeta Pleitez MD Work Phone: Rheumatology Outpatient Care HilliardComment on above: 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); HUNTER positive; Rosacea; Interstitial cystitis; Polyarthralgia; Fibromyalgia; Chronic abdominal painStart: 16-86-4608ovtdrrtscyNVHGE B FERRIN Facility:[facility]tart: 09-31-2137jyqhpgtzszJXNTCRW TERESA Facility:[facility]art: 11-21-2024 End: 68-84-8731Oaipdm outpatient visit 15 minutesCorey Alden DO Work Phone: noms BCP OBComment on above:Pre-op examination; Pelvic congestion syndrome; Pelvic pain in femaleStart: 11-21-2024 End: 34-17-8596Igjflxzanhlwg examination doneCorey Alden DO Work Phone: [facility] HealthcareStart: 11-21-2024 End: 34-63-0500vvboiwgamuMRTQJ FAZIONot AvailableStart: 11-13-2024 End: 38-34-1703Rmdhwx flowsheetCorey Alden DO Work Phone: [facility] BCP OBStart: 11-13-2024 End: 41-21-6497Fmvpon flowsheetCorey Alden DO Work Phone: [facility] BCP OBStart: 11-13-2024 End: 50-91-1510Hkydiqyi Result EncounterCorey Alden DO Work Phone: [facility] External Department UnsolicitedStart: 11-13-2024 End: 55-21-6199Zaqxic outpatient visit 15 minutesCorey Alden DO Work Phone: [facility] OBComment on above:Pelvic congestion syndrome; Pelvic pain in femaleStart: 11-13-2024 End: 19-30-1721fpcbldrzywKOTGI FAZIONot AvailableStart: 11-09-2024 End: 37-90-9611Wkletk outpatient new [address] MD Work Phone: [facility] Comment on above:Chronic migraine without aura without status migrainosus, not intractable (Primary Dx)Start: 50-97-2773vidaiweyjzEGAPU B YASIR Facility:[facility]tart: 11-09-2024 End: 92-09-7466NapqipTjhcf Chen MD Work Phone: [facility] Comment on above:Chronic migraine without aura without status migrainosus, not intractable (Primary Dx)Start: 11-09-2024 End: 37-41-5498Rupkyfsvx encounterYadira Lane MD Work Phone: [facility] Comment on above:Med Change RequestStart: 11-02-2024 End: 02-18-0905qmnvgaitvuEocwbk Sue Cramer BANDAGE MAKERGalinaC Work Phone: [facility] Work Phone: Start: 11-02-2024 End: 75-98-3716Ljanagff ReferredErin Whiteside BANDAGE MAKERGailnaC Work Phone: [facility]-LAB Path Spec [place] HospStart: 09-28-2024 End: 96-22-9298Cvdefrqhd encounterAlyvesta May ADivision of Endocrinology Comment on above:AppointmentStart: 66-21-9296lskfqayiykJS ZHOU Facility:[facility]tart: 09-18-2024 End: 21-08-0362Dcohlpwa Support EncounterAndreas Ortega MD, MPH Work Phone: Clinical Lab Isrrael Kang 1Comment on above:Low grade mucinous neoplasm of appendix; Primary malignant neuroendocrine tumor of appendixStart: 09-18-2024 End: 85-68-5026Fjqnmmefap hospital visit by Milly Moralez BREAD OVEN OPERATOR-RETAIL WIRELESS SALES REPRESENTATIVE Work Phone: Imaging Lindy Kang Outpatient CareComment on above:ArrivedStart: 51-30-9767dkhlujjcdbJS ZHOUFacility:[facility] Start: 08-17-2024 End: 95-37-6840Wuijvs flowsheetElayne SIMMONS Work Phone: noms BCP OBStart: 08-17-2024 End: 77-40-5335Tqehuf flowsheetElayne SIMMONS Work Phone: noms BCP OBStart: 08-17-2024 End: 46-02-4656Bttqmtopa Result EncounterElayne SIMMONS Work Phone: noms External Department UnsolicitedStart: 08-17-2024 End: 27-10-7733Fhhpwzk encounter procedureElayne SIMMONS Work Phone: [facility] Work Phone: Start: 08-17-2024 End: 92-24-4492Hwlplfjs preventive med est patient 18-39 yrsElayne SIMMONS Work Phone: noms BCP OBComment on above:Well woman exam with routine gynecological exam; Menorrhagia with regular cycleStart: 08-17-2024 End: 39-54-0459gquatuijwgZSV RACHELLEElizabet AvailableStart: 05-15-2024 End: 40-60-5576Sbeljnwpn encounterAlena Beauchamp CMAProMedica Physicians General SurgeryStart: 05-10-2024 End: 09-29-4193Ynkmnc Bro Sr RMAProMedica Physicians General SurgeryComment on above:Colitis; Black stoolsStart: 05-03-2024 End: 03-58-8808fztdskaakoID-C Erin Whiteside Work Phone: [facility] Work Phone: Start: 05-03-2024 End: 16-10-2816Hridjpwz ReferredLEFTY-Dayday Whiteside Work Phone: [facility]-LAB Path Spec [place] HospStart: 00-16-5446fzcrtmylmnVT ZHOUFacility:[facility]ENTERtart: 04-25-2024 End: 93-55-2395Uzwivhceri hospital visit by Milly Moralez BREAD OVEN OPERATOR-RETAIL WIRELESS SALES REPRESENTATIVE Work Phone: [facility] BeevilleComment on above:Arrived Start: 75-57-8800eckbdjnzojTBGWTKOrange [facility] Start: 20-42-1280ijtjrnubnhCPILLZN KONDAFacility:[facility]ENTERtart: 04-13-2024 End: 80-22-3200Qbryasnaix hospital visit by Torito Ortega MD, MPH Work Phone: Imaging and M[facility]ography [facility] [place] Comment on above:ArrivedStart: 04-13-2024 End: 42-13-3708Iepwxd outpatient visit 15 minutesAurelia Chakraborty BREAD OVEN OPERATOR-RETAIL WIRELESS SALES REPRESENTATIVE Work Phone: Pro[facility] Hospitalca Physicians General SurgeryComment on above: Colitis (Primary Dx); Black stools; Diarrhea, unspecified type; Low grade mucinous neoplasm of appendix; Neuroendocrine neoplasm of appendixStart: 04-13-2024 End: 37-90-5539kizdmrvwnpJVZMKVM A [facility]LLSt. [facility] Start: 74-03-1124jrdacewffzTQ ZHOUFacility:[facility]ENTERtart: 04-11-2024 End: 22-68-7578Gwlgsscfi encounterCarrileonel AndersonungDivision of Medical Oncology Comment on above:Change In SymptomsStart: 04-03-2024 End: 21-65-6479Bsqkomb encounter procedureDONELL Whiteside Work Phone: [facility]-Ultrasound Cntr for Breast CarStart: 04-03-2024 End: 71-48-2130zyciuflhorLO-C Pamela Sue Cramer Work Phone: [facility] Work Phone: Start: 03-13-2024 End: 96-82-5307Srhyywnrg encounterAndreas Ortega MD, MPH Work Phone: Division of Medical OncologyComment on above:Advice OnlyStart: 02-07-2024 End: 15-62-7665Ynkthftzlu hospital visit by Milly OLEARY Work Phone: Department of RadiologyComment on above:ArrivedStart: 02-07-2024 End: 94-88-9782Oglvyvu encounter procedureMuneetu Apodaca [phone]-XtloaThe Jewish Hospital Digest[facility] Health Start: 01-06-2024 End: 96-03-1204Jmcrcy outpatient visit 40 minutesVinicius Gomes MD, PhD Work Phone: Division of Medical OncologyComment on above: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); Diarrhea, unspecified type; Primary malignant neuroendocrine tumor of appendix; Carcinoid syndrome; Tachycardia; SOB (shortness of breath)Start: 12-24-2023 End: 96-38-3257Mxpyxnasv Result EncounterElayne SIMMONS Work Phone: NOXF External Department UnsolicitedStart: 12-24-2023 End: 50-75-9455Wzksouqvb Result EncounterElayne SIMMONS Work Phone: noms External Department UnsolicitedStart: 11-26-2023 End: 55-11-1638Fzkhln outpatient new 45 minutesDolores Johnson BREAD OVEN OPERATOR-RETAIL WIRELESS SALES REPRESENTATIVE Work Phone: General and Gastrointestinal Surgery Outpatient Care ChicagoComment on above:Elevated liver enzymes (Primary Dx)Start: 11-06-2023 End: 81-19-9464Kpysiegjju hospital visit by Torito Ortega MD, MPH Work Phone: Imaging Lindy Kang Outpatient CareComment on above:ArrivedStart: 09-21-2023 End: 84-56-3731Tjdaadwrw Result EncounterCorey Alden DO Work Phone: noms External Department UnsolicitedStart: 09-21-2023 End: 49-88-1006Abbjrwxjc Result EncounterCorey Alden DO Work Phone: noms External Department UnsolicitedStart: 08-24-2023 End: 47-95-6579Gxizickc flow sheetCorey Alden DO Work Phone: NOMM BCP OBComment on above:Third trimester Start: 03-11-2023 End: 45-39-6826Mhqidewl Support EncounterArchie Hugo MD, PhD Work Phone: Clinical Lab Isrrael Kang 1Comment on above:Primary malignant neuroendocrine tumor of appendixStart: 03-11-2023 End: 70-31-3450Dheckdolne hospital visit by Rakan Vigil BREAD OVEN OPERATOR-RETAIL WIRELESS SALES REPRESENTATIVE Work Phone: Imaging Outpatient Care EastComment on above:Arrived Start: 12-10-2022 End: 22-65-2757Ukziek outpatient visit 15 Mira Hugo MD, PhD Work Phone: Division of Surgical OncologyComment on above:Primary malignant neuroendocrine tumor of appendix (Primary Dx)Start: 11-30-2022 End: 87-43-6076hdfsottjsrJGVYQM CRAMERFacility:E3Ryomo: 10-22-2022 End: 55-54-2257Rndxkc outpatient new 60 minutesRebekah Suero MD Work Phone: [facility]imod[facility] ClinicComment on above:Fibromyalgia muscle pain (Primary Dx)Start: 10-22-2022 End: 10-70-8534Dcsyeeoaxt hospital visit by Milly OLEARY Work Phone: Heart and Vascular Outpatient Care [place]Start: 10-22-2022 End: 82-15-4591Vbnpyvxblu hospital visit by Milly Moralez APRN-TASH Work Phone: Imaging and Mammography Outpatient Care GahannaComment on above:ArrivedStart: 10-07-2022 End: 59-23-7570Jfrizj outpatient visit 25 minutesYe Kirt PALMER-TASH Work Phone: Division of Medical OncologyComment on above:Carcinoid syndrome (Primary Dx); SOB (shortness of breath); Tachycardia; Antinuclear antibody (HUNTER) titer greater than 1:80; Primary malignant neuroendocrine tumor of appendixStart: 10-06-2022 End: 53-40-7601qliuoswepbLFNILF CRAMERFacility:D4Rivzv: 10-02-2022 End: 75-08-4160bqajakxhohACDAJP CRAMERFacility:P4Kfkjr: 09-30-2022 End: 64-13-3602lenrawgdnbRM DOCTOR MISCFacility:W1Snget: 09-23-2022 End: 63-20-2086ozpdfpqiquRMYGKK CRAMERFacility:G9Gmoqa: 09-15-2022 End: 46-19-0138bfzmyhkkjnNKIDVN CRAMERFacility:R7Saxzw: 09-09-2022 End: 68-36-4717twvwcwrrlgXO DOCTOR MISCFacility:J5Weemq: 77-46-8397Ybqjouexv for general adult medical examination without abnormal findingsPAMELA [facility] Foundationtart: 08-31-2022 End: 32-26-9913nkqufqfcgjDVHOEG CRAMERFacility:S9Lvqvr: 08-31-2022 End: 64-51-9138Diebcswqc for general adult medical examination without abnormal findingsPAMELA CRAMERFacility:S3Wgduf: 08-24-2022 End: 18-01-1646zptqkyxwogPW DOCTOR MISCFacility:Y5Lmbrw: 08-19-2022 End: 43-62-3734Uqbzkxrmph hospital visit by Torito Ortega MD, MPH Work Phone: Department of RadiologyComment on above:ArrivedStart: 08-19-2022 End: 45-52-0094Ojefzpdgst hospital visit by Milly Moralez BREAD OVEN OPERATOR-RETAIL WIRELESS SALES REPRESENTATIVE Work Phone: [facility] BeevilleComment on above:Arrived Start: 08-12-2022 End: 38-16-9171lboqhfxlnwHFGTOT CRAMERFacility:Z3Gphze: 08-05-2022 End: 55-13-4445ritkxdevuzNTEGPE CRAMERFacility:P6Jhkpb: 07-08-2022 End: 95-11-8017Zmpgxs consultation new/estab patient 80 Jack Ortega MD, MPH Work Phone: Division of Medical OncologyComment on above:Primary malignant neuroendocrine tumor of appendix (Primary Dx)Start: 06-09-2022 End: 08-72-2566Qqjsla follow up visit related to original Julieta Mendoza Eliseo BREAD OVEN OPERATOR-RETAIL WIRELESS SALES REPRESENTATIVE Work Phone: Division of Surgical OncologyComment on above:Primary malignant neuroendocrine tumor of appendix (Primary Dx)Start: 06-03-2022 End: 52-72-5320unukihsdrsABNFGX CRAMERFacility:V7Mixpd: 06-02-2022 End: 79-33-1621ermufhmbjcZQQYXS CRAMERFacility:Z5Pzbju: 05-22-2022 End: 71-49-6941Jujxqcvbza and management of inpatientAlex Dayday Hugo MD, PhD Work Phone: [phone] on above:Primary malignant neuroendocrine tumor of appendixStart: 04-29-2022 End: 95-64-8213eckhvnjltlAKITRD CRAMERFacility:I1Mmxld: 04-08-2022 End: 77-14-1737rugjtimxuvGT TIMMY HALL .Facility:V2Vxiic: 04-06-2022 Encounter for preprocedural laboratory examinationDR TIMMY HALL .[facility] Hospitaltart: 04-04-2022 End: 10-73-0052amumffshpaLKNCQE STEVOFacility:C7Uxlig: 04-04-2022 End: 83-08-6951Nhwxpoldx for preprocedural laboratory examinationKINDRED [facility] Facility:G7Ldnjw: 03-31-2022 End: 30-01-8849Ndyxwynozt hospital visit by Toby Gomes BREAD OVEN OPERATOR-RETAIL WIRELESS SALES REPRESENTATIVE Work Phone: Imaging and Mammography [facility] [place] Comment on above:ArrivedStart: 03-19-2022 End: 44-36-4958Yeklxg outpatient new 60 minutesMarthax Dayday Hugo MD, PhD Work Phone: Division of Surgical OncologyComment on above:Primary malignant neuroendocrine tumor of appendix (Primary Dx)Start: 02-19-2022 Telephone encounterIntestinal Trans Coord Main Work Phone: Transplant CenterComment on above:Referral Request Start: 02-03-2022 End: 53-69-0183uxefdgqtqnAPRJEI STEVOFacility:Z1Lqzho: 12-22-2021 End: 76-53-2390wdtvrudtcpVgdhdutqe Breault Other [place] [employer] Other Start: 97-44-7298Nknzru outpatient visit 15 minutes Ava LundbergFPSarah Urgent Care Jian Procedures DateProcedureProcedure DetailPerforming ClinicianStart: 15-42-0528NZB AND ELECTRONIC DIFFSarah B Yasir BREAD OVEN OPERATOR-RETAIL WIRELESS SALES REPRESENTATIVE Work Phone: Start: 33-97-6560Zukkgqci blood count with white cell differential, automatedSarah B Yasir BREAD OVEN OPERATOR-RETAIL WIRELESS SALES REPRESENTATIVE Work Phone: Start: 34-65-1375Yofdquyfjlytt metabolic panelSarah B Yasir BREAD OVEN OPERATOR-RETAIL WIRELESS SALES REPRESENTATIVE Work Phone: Start: 41-13-7597KAHFHXQ TRACT INFECTION (HTRX)Ron Ruano DO Work Phone: Start: 96-18-9056TJL AND ELECTRONIC DIFFYe Moralez [facility] Work Phone: Start: 51-23-5934Dzoejpsq blood count with white cell differential, automatedYe Kirt BREAD OVEN OPERATOR-[facility] Work Phone: Start: 68-84-5663Onhmyycyfylsf metabolic panelYe Kirt [facility] Work Phone: Start: 83-60-4397XRE,APTIMA HPV,AGE GDLNElayne SIMMONS Work Phone: Start: 31-92-5698XSC / COLONOSCOPYJessica A Delfino [facility]LA[facility] Work Phone: Start: 07-10-1989Rffck i surg pathology gross examination onlyNot In System Ref ProvStart: 01-20-0020Uiw imaging ct attenuation skull base mid-thighYe Moralez [facility] Work Phone: Start: 26-47-9263XxnezfnjigdOuzdefrr Jordonmini Comment on above:04/2024, normal. TBHStart: 04-13-2024 Ct abdomen & pelvis w/o contrst 1/> body Francisca Ortega MD, MPH Work Phone: Start: 15-40-5043Zhyqreoinefyhbk of bilateral breasts BANDAGE MAKER-C Erinnimo Whiteside Work Phone: Start: 02-95-5404Jo soft tissue head & neck real time imge Wilton SIMMONS Work Phone: Start: 40-23-4946NV OB GROWTHCorey Alden DO Work Phone: Start: 50-95-1191Dwd abdomen w/o contrast materialYe Kirt [facility] Work Phone: Start: 25-77-1681Vbcd tthrc r-t 2d w/wom-mode compl spec&colr dYe Kirt [facility] Work Phone: Start: 26-71-5575Uy soft tissue neck w/contrast materialYe Kirt BREAD OVEN OPERATOR-RETAIL WIRELESS SALES REPRESENTATIVE Work Phone: Start: 65-77-4445Dw thorax w/contrast materialYe Moralez BREAD OVEN OPERATOR-RETAIL WIRELESS SALES REPRESENTATIVE Work Phone: Start: 18-71-1490Nzmhczkizgu peptideYe Moralez BREAD OVEN OPERATOR-RETAIL WIRELESS SALES REPRESENTATIVE Work Phone: Start: 65-27-0899Wewrlwolus bloodAndreas Ortega MD, MPH Work Phone: Start: 89-47-0993Tpa imaging ct attenuation skull base mid-thighYe Moralez BREAD OVEN OPERATOR-RETAIL WIRELESS SALES REPRESENTATIVE Work Phone: Start: 30-94-1529Fwxie of Brenda Arnold MD Work Phone: Start: 51-11-2467Zcfxp of Brenda Arnold MD Work Phone: Start: 78-19-0345Qmrru of Brenda Arnold MD Work Phone: Start: 09-28-5694Ojsedyw resection of small bowel using robotic assistanceDiego Apodaca Start: 65-75-5303Rsplu colectomyDiego Apodaca Start: 81-29-7212Hshqx of Brenda Arnold MD Work Phone: Start: 50-88-3165Ctypl of Brenda Arnold MD Work Phone: Start: 67-00-1930Cfiyi of Brenda Arnold MD Work Phone: Start: 75-64-2573Yjumg of Brenda Arnold MD Work Phone: Start: 35-28-1358Rvtljolsyh exam abdomen 1 Seb Hong MD Work Phone: Start: 91-84-9853NDKFRTZUZD CARDIAC MONITORING STRIP Other OtherStart: 70-80-8576Tnzushaxj directApejessica Arnold MD Work Phone: Start: 89-86-3131Yhwvtcq ionizedArchie Hugo MD, PhD Work Phone: Start: 96-19-5049QLZJAUKVGO CARDIAC MONITORING STRIP Other OtherStart: 74-06-5254Poybzvuy Phoebe Hugo MD, PhD Work Phone: Start: 55-42-3455Nbuxcym ionizedAlemanpreet Hugo MD, PhD Work Phone: Start: 05-22-2022 End: 25-37-5447Tehvmuhvb partial w/anastomosisArchie Hugo MD, PhD Work Phone: Start: 05-22-2022 End: 38-75-2865Rlwgwiydcbwe intracavitary probesArchie Hugo MD, PhD Work Phone: Start: 05-22-2022 End: 72-52-0418Jzqvohkte recrt mal w/omentectomy pel lmphadecAlex Dayday Hugo MD, PhD Work Phone: Start: 13-44-8667Jffyf typing serologic aboGenenallely Cisneros PA-C Work Phone: Start: 46-91-4521KUONZAD TO TRANSFUSE OR RED BLOOD CELLSGenenallely Cisneros PA-C Work Phone: Start: 37-71-6265Ymucwsoigcrb chorionic qualitative Archie Hugo MD, PhD Work Phone: Start: 50-75-6076Ig thorax w/contrast materialKatie N [place] BREAD OVEN OPERATOR-RETAIL WIRELESS SALES REPRESENTATIVE Work Phone: Start: 09-48-3236EAK AND ELECTRONIC DIFFKatie N [facility] Work Phone: Start: 41-63-5050Zczfpasq blood count with white cell differential, automatedKatie [facility] Work Phone: Start: 75-71-0597Xrexzkzbvgudm metabolic panelKatie N [place] BREAD OVEN OPERATOR-RETAIL WIRELESS SALES REPRESENTATIVE Work Phone: Start: 10-97-7702Dmqkt depression screening assessment Aurelia Chakraborty BREAD OVEN OPERATOR-RETAIL WIRELESS SALES REPRESENTATIVE Work Phone: Start: 50-07-5584Wugbacoeglpe appendectomyMuhammad Jordonmini Cesarean sectionMuhammad Sarmini CholecystectomyMuhammad Sarmini Plan of Treatment DateCare ActivityDetailAuthorStart: 61-66-7072Twxctzx ScreeningTobacco Screening [facility] Centertart: 89-58-4308Vvkyc BMI ScreeningAdult BMI Screening [facility] Centertart: 19-49-9327Mnlcpeo ScreeningTobacco Screening [facility] Centertart: 55-83-5832Synfg cultureBucyrus Community Hospitaltart: 20-73-4561Ubrfrvph identified in Urine by CultureUrine Culture [facility] Hospitaltart: 19-46-9376Vstwxdnna vaccinationOSU Wexner Medical Centertart: 03-08-2025 End: 32-90-3629Wjedfky encounter btwaqzixz57/21/2025 9:30 AM EDT Office Visit [facility] [address] [phone] Elayne Bush PA [address] [place] [address] [facility] BCP OBStart: 01-29-2025 End: 80-86-2323Mvyoite encounter yrlbflpqg90/14/2025 12:00 PM EDT Office Visit Division of Medical Oncology [address] [facility] [address] [place] [address] Christopher Moralez BREAD OVEN OPERATOR-RETAIL WIRELESS SALES REPRESENTATIVE [address] [place] [address] Division of Medical OncologyStart: 01-22-2025 End: 61-87-5065Lrudbdu encounter kbnlmuatq99/07/2025 10:45 AM EDT Appointment Imaging at [facility] [address] [facility] [place] [address] Christopher Moralez, BREAD OVEN OPERATOR-RETAIL WIRELESS SALES REPRESENTATIVE [address] [place], [place] [id number] [facility]Start: 01-22-2025 End: 70-00-1673Pfalrnxc Support Ndqugzhon88/07/2025 9:30 AM EDT Clinical Support Encounter Clinical Lab Isrrael [place] [address] [place] [address] [facility] [place] [phone] Christopher Moralez, BREAD OVEN OPERATOR-RETAIL WIRELESS SALES REPRESENTATIVE [address] [place], [place] [address] Clinical Lab Isrrael [place] 1Start: 01-11-2025 End: 64-65-9467Fghnwds encounter tgwiayisc87/26/2025 2:40 PM EDT Office Visit Division of Medical Oncology [address] [place] [address] [place], [place] [phone] Vinicius Gomes MD, PhD [address] [facility] [address] [place] [phone] Division of Medical Oncology Start: 12-21-2024 End: 91-17-3870ELDYAQEQAYJTriHealth McCullough-Hyde Memorial HospitalComment on above:Expected: 12/21/2024, Expires: 12/21/2025Start: 12-21-2024 End: 97-02-0317ZI Cervical spine 4 ViewsXR SPINE CERVICAL 4-5 VIEWS Imaging Routine HUNTER positive Expected: 12/21/2024, Expires: 12/21/2025Tri[facility]ull[facility]-Hyde Memorial HospitalComment on above:Expected: 12/21/2024, Expires: 12/21/2025Start: 12-21-2024 End: 09-43-9836BK Wrist - left ViewsXR WRIST LEFT Imaging Routine HUNTER positive Expected: 12/21/2024, Expires: 12/21/2025[facility]xner Medical CenterComment on above:Expected: 12/21/2024, Expires: 12/21/2025Start: 12-21-2024 End: 37-57-7474Jkdvgcm encounter procedureRheumatology Outpatient Care [place] Start: 11-21-2024 End: 95-82-1727Lggtvpl encounter bjngfakpj75/06/2025 11:30 AM EDT Consult [facility] OB [address] [place] [address] Ron Ruano, DO [address] [place] [address] [facility] BCP OBStart: 11-13-2024 End: 11-07-8578Dhdofbj encounter ylnpousew29/28/2025 10:30 AM EDT Office Visit [facility] OB [address] [place] [phone] Ron Ruano, DO [address] [place] [address] ArrivedNOMS [facility] OBComment on above:ArrivedStart: 11-09-2024 End: 92-22-7772Pjfyfvx encounter ztqdjmunn31/24/2025 3:15 PM EDT Office Visit Neurological Specialty [facility] Spine [facility] [address] [place] [address] MD [address] [place] [address] [facility]rological [facility] Hospitaltart: 20-92-6955Hbdhitqs identified in Urine by CultureUrine [facility] Westtart: 11-02-2024 Urine cultureBucyrus [facility]: 09-28-2024 End: 54-20-8639Jxltwue encounter procedureDivision of Medical OncologyStart: 09-12-2024 End: 64-05-9850Wswmnnr encounter alxihzltx78/25/2025 2:20 PM EST Office Visit [facility] [address] [place] [id number] Ron Ruano, DO [address] [facility] [address] [place] [address] [facility] OBStart: 09-04-2024 End: 91-26-9934Ovcstrlnubae / ancillary services pcxcvdowsm83/17/2025 2:30 PM EST Ancillary Procedure [facility] [address] [id number] [facility]: 08-17-2024 End: 98-23-6946qWOG in Blood by Coagulation assayAPTT Lab Routine Menorrhagia with regular cycle Expected: 08/17/2024 (Approximate), Expires: 08/17/2025NOR[facility] HealthcareComment on above:Expected: 08/17/2024 (Approximate), Expires: 08/17/2025Start: 08-17-2024 End: 85-07-4047Rtdazyq encounter adupwayhb40/30/2025 2:00 PM EST Office Visit [facility] OB [address] [place] [phone] Elayne Bush PA [address] [place], [place] [phone] [facility]rivedNOLIVERMORE [facility] OBComment on above:ArrivedStart: 08-17-2024 End: 08-80-6374QS PelvisUS Pelvis w/ TV Imaging Routine Menorrhagia with regular cycle Expected: 08/17/2024 (Approximate), Expires: 08/17/2025[facility] Comment on above:Expected: 08/17/2024 (Approximate), Expires: 08/17/2025Start: 06-06-2024 End: 26-32-4115Qjgxojg encounter procedureDivision of Medical OncologyStart: 05-23-2024 End: 98-12-7974Mlnfnieq Support EncounterClinical Lab [facility] [place] 1Start: 04-25-2024 End: 97-96-8040Crqqmcw encounter lrloadxkk15/08/2024 9:00 AM EDT Appointment Imaging [facility] [address] [place] [address] Christopher Moralez APRN-RETAIL WIRELESS SALES REPRESENTATIVE [address] [place], [place] [phone] Imaging [facility]: 85-56-2681Zsbevsfbxw hospital visit by tzeiiljij51/26/2024 7:00 PM EDT Hospital Encounter Imaging and Mammography Out[facility] [place] [address] [address] Andreas Ortega MD, MPH [address] [facility] [place] 10th [place] [phone] [facility]: 04-12-2024 End: 68-44-6408Sbflcee encounter zaxemqwhe62/25/2024 9:30 AM EDT Appointment Imaging [facility] [address] [place] [address] Christopher Moralez APRN-RETAIL WIRELESS SALES REPRESENTATIVE [address] [place], [place] [phone] Imaging [facility]: 04-11-2024 End: 66-83-0140ZE Abdomen and Pelvis WO and W contrast IVCT ABDOMEN/PELVIS WITH AND WITHOUT CONTRAST Imaging STAT Primary malignant neuroendocrine tumor of a ppendix Expected: 04/11/2024, Expires: 04/11/2025[facility] Comment on above:Expected: 04/11/2024, Expires: 04/11/2025Start: 03-19-2024 COVID-19 Vaccine ( season)COVID-19 Vaccine ( season) [facility] HospitalBakers Shoes SystemStart: 39-63-1227Ffefsnnrm vaccinationGood Samaritan Hospitaltart: 03-02-2024 End: 12-64-5188Cdyvsfmqhnzf consultation with ynvxnlk5203/02/2024 9:00 AM EDT Telemedicine General and Gastrointestinal Surgery Outpatient Care [place] [address] [facility] [address] [place] [address] Dolores Johnson, BREAD OVEN OPERATOR-RETAIL WIRELESS SALES REPRESENTATIVE [address] [place] [address] General and Gastrointestinal [facility]: 02-10-2024 End: 01-98-3396Sdttioj encounter /25/2024 11:00 AM EDT Office Visit Division of Medical Oncology [address] [place] [address] [place] [address] Andreas Ortega MD, MPH [address] [place] [address] [place] [address] Division of Medical OncologyStart: 01-28-2024 End: 68-25-2725Qkjudpq encounter lxhhjikfp95/12/2024 11:30 AM EDT Appointment Imaging [facility] Outpatient Care [address] [place] [phone] Christopher Moralez BREAD OVEN OPERATOR-RETAIL WIRELESS SALES REPRESENTATIVE [address] [place] [address] Imaging [facility]: 01-28-2024 End: 76-07-0314Ctonsbri Support Mkzzfxnyd58/12/2024 10:15 AM EDT Clinical Support Encounter Clinical Lab [facility] [place] 1 [address] [place] [address] [place] [address] Andreas Ortega MD, MPH [address] [place] [address] [place] [address] Clinical Lab [facility] [place] 1Start: 01-06-2024 End: 19-69-4401Ceviiam encounter pyfazxtuk40/20/2024 3:00 PM EDT Office Visit Division of Medical Oncology [address] [place] [address] [place] [address] Vinicius Gomes MD, PhD [address] [place] [address] [place] [address] Division of Medical Oncology Start: 12-14-2023 End: 52-01-1365Yjopuhp encounter pclaxzuhy89/28/2024 12:30 PM EDT Office Visit Cardiology [facility] [address] [place] [address] Fletcher Coelho MD [address] [place] [address] Cardiology [facility] 5Start: 11-26-2023 End: 62-26-4803YDCEI-1-ANTITRYPSIN PHENOTYPETriHealth McCullough-Hyde Memorial HospitalComment on above:Expected: 11/26/2023 (Approximate), Expires: 11/25/2024Start: 11-26-2023 End: 98-18-0174IRJ SCREEN IFATriHealth McCullough-Hyde Memorial HospitalComment on above:Expected: 11/26/2023 (Approximate), Expires: 11/25/2024Start: 11-26-2023 End: 91-76-4813WAJH MITOCHONDRIAL ANTIBODYTriHealth McCullough-Hyde Memorial HospitalComment on above:Expected: 11/26/2023 (Approximate), Expires: 11/25/2024Start: 11-26-2023 End: 89-19-3290SWDZ SMOOTH MUSCLE ANTIBODYTriHealth McCullough-Hyde Memorial HospitalComment on above:Expected: 11/26/2023 (Approximate), Expires: 11/25/2024Start: 11-26-2023 End: 37-88-8292DBJAKXOLVN PROT IMMUNO, SERUMTriHealth McCullough-Hyde Memorial HospitalComment on above:Expected: 11/26/2023 (Approximate), Expires: 11/25/2024Start: 11-26-2023 End: 01-53-2558C-TRANSGLUTAMINASE IGG/IGA, ABOSU [facility] HospitalComment on above:Expected: 11/26/2023, Expires: 11/25/2024Start: 11-08-2023 End: 46-13-1422Yovysckqcbnw consultation with xmzgnnl9411/08/2023 11:00 AM EDT Telemedicine Division of Medical Oncology [address] [place] 10[address] Floor [facility], [phone] Christopher Moralez, BREAD OVEN OPERATOR-RETAIL WIRELESS SALES REPRESENTATIVE [address] [place] [address] Division of Medical Oncology Start: 10-28-2023 End: 62-49-2926Grqyaiv encounter /11/2024 1:00 PM EDT Office Visit General and Gastrointestinal Surgery [facility] [place] [place] [address] Nawaf Cabrera Jr., MD [address] [place] [address] General and Gastrointestinal Surgery Outpatient Care [place]Start: 09-08-2023 End: 40-48-1735Vlderye encounter yqwfhtsja00/21/2024 10:40 AM EST Routine [facility] [address] [place] [address] Ron Ruano, DO [address] [place] [address] [facility] BCP OBStart: 06-17-2023 End: 72-95-7288Pwzgcuh encounter xeyqoydqs96/30/2023 1:30 PM EST Office Visit Division of Surgical Oncology [address] [place] [address] Floor [place] [phone] Archie Hugo MD, PhD [address] [place] [phone] Division of Surgical OncologyStart: 06-17-2023 End: 91-89-1764Oazwpen encounter qtjxtopgc50/30/2023 12:20 PM EST Appointment Imaging [facility] [address] [place] [address] Archie Hugo MD, PhD [address] [place] [phone] Imaging [facility] Outpatient CareStart: 26-49-4190Ovwdwlgnd [facility]tart: 03-17-2023 End: 99-46-8003Yiuvcvg encounter procedureDivision of Medical OncologyStart: 03-11-2023 End: 15-53-5863Exgcmaq encounter /24/2023 Office Visit Surgical Oncology Archie Hugo MD, PhD [address] [place] [address] Division of Surgical OncologyStart: 03-11-2023 End: 19-84-5840Uwakymk encounter procedureImaging Outpatient Care EastStart: 22-66-0041Afghhyqbqh ScreeningDepression ScreeningCape Fear Valley Medical Centertart: 12-22-2022 End: 62-10-5549Ghozfpi encounter gutigbjno68/06/2023 Office Visit Cardiovascular Medicine Marisela Velásquez, BREAD OVEN OPERATOR-RETAIL WIRELESS SALES REPRESENTATIVE [address] [place] [phone] Cardiology [facility] 5Start: 12-17-2022 End: 90-03-9502Tdgdooh encounter bbhwxpulj95/01/2023 Office Visit Oncology Andreas Ortega MD, MPH [address] [place] [address] [place] [address] Division of Medical OncologyStart: 12-10-2022 End: 07-31-8817YO Abdomen and Pelvis W contrast IVCT ABDOMEN/PELVIS WITH CONTRAST Imaging Routine Primary malignant neuroendocrine tumor of appendix E xpected: 12/10/2022, Expires: 12/11/2023[facility] Memorial HospitalComment on above:Expected: 12/10/2022, Expires: 12/11/2023Start: 12-10-2022 End: 55-04-7715HG Chest W contrast IVCT CHEST WITH CONTRAST Imaging Routine Primary malignant neuroendocrine tumor of appendix Expected:12/10/2022, Expires: 12/11/2023[facility] HospitalComment on above:Expected: 12/10/2022, Expires: 12/11/2023Start: 12-10-2022 End: 33-07-0486Rdfhmaw encounter procedureImaging [facility] Outpatient CareStart: 12-07-2022 End: 97-86-4248VB Abdomen and Pelvis W contrast IVCT ABDOMEN/PELVIS WITH CONTRAST Imaging Routine Primary malignant neuroendocrine tumor of appendix E xpected: 12/07/2022, Expires: 06/09/2023[facility] HospitalComment on above:Expected: 12/07/2022, Expires: 06/09/2023Start: 11-05-2022 End: 66-33-0917Zvoehnx encounter bgmtuvnem64/20/2023 Office Visit Oncology Andreas Ortega MD, MPH [address] [facility] [address] [place] [address] Division of Medical OncologyStart: 10-27-2022 End: 48-92-5098Vvfxpxr encounter vkyguadhj00/11/2023 Office Visit Cardiovascular Medicine Fletcher Coelho MD [address] [place] [address] Cardiology [facility] 5Start: 10-27-2022 End: 89-91-7585cbpukigdlg03/11/2023 Telemed Clin Support Genetics Erin Stoner, [facility] [address] [facility] [address] [place], [place] Division of Human GeneticsStart: 53-68-9070Rmbqhfwlpy hospital visit by gvnxofmdn60/05/2023 Hospital Encounter Computerized Tomography Scan Christopher Moralez APRN-CNP [address] [place], [place] [phone] Imaging Outpatient Care [facility]: 10-21-2022 End: 41-86-1144Kwasfxl encounter bkpjefiep38/05/2023 Appointment Echocardiography Christopher Moralez APRN-CNP [address] [place] [address] Heart and Vascular Outpatient Care [place] Start: 10-07-2022 End: 97-05-5671BX Chest W contrast IVCT CHEST WITH CONTRAST Imaging Routine Carcinoid syndrome SOB (shortness of breath) Tachycardia Primary malignant neuroendocrine tumor of appendix Expected: 10/07/2022, Expires: 10/08/2023[facility] HospitalComment on above:Expected: 10/07/2022, Expires: 10/08/2023 Start: 10-07-2022 End: 18-16-0993JH Neck W contrast IVCT NECK WITH CONTRAST Imaging Routine Primary malignant neuroendocrine tumor of appendix Expected: 10/07/2022, Expires: 10/08/2023OSJoint Township District Memorial HospitalComment on above:Expected: 10/07/2022, Expires: 10/08/2023Start: 08-26-2022 End: 52-45-1290Hjdnrqtyqzgf consultation with mzkluyi8508/26/2022 Telemedicine Oncology Andreas Ortega MD, MPH [address] [facility] [address] [place] [address] Division of Medical Oncology Start: 08-19-2022 End: 03-44-7020Ozrrzni encounter procedureNorth Texas State Hospital – Wich[facility] Falls Campustart: 07-08-2022 End: 81-91-7693Vzwokrnc blood count with white cell differential, automatedCBC, EDIF, PLATELET Lab Routine Primary malignant neuroendocrine tumor of appendix Expected: 07/08/2022, Expires: 07/08/2023OSJoint Township District Memorial HospitalComment on above:Expected: 07/08/2022, Expires: 07/08/2023Start: 07-08-2022 End: 14-84-2116Cghnuqbzjcapg metabolic 2000 panel - Serum or PlasmaCOMPREHENSIVE METABOLIC PANEL Lab Routine Primary malignant neuroendocrine tumor of appendix Expected: 07/08/2022, Expires: 07/08/2023OSJoint Township District Memorial HospitalComment on above:Expected: 07/08/2022, Expires: 07/08/2023Start: 07-08-2022 End: 17-26-7623QI Abdomen and Pelvis WO and W contrast IVCT ABDOMEN/PELVIS WITH AND WITHOUT CONTRAST Imaging Routine Primary malignant neuroendocrine tumor of appendix Expected: 07/08/2022, Expires: 07/08/2023[facility] Comment on above:Expected: 07/08/2022, Expires: 07/08/2023Start: 07-08-2022 End: 66-42-2581Dsttmtq dehydrogenase [Enzymatic activity/volume] in Serum or PlasmaLACTATE DEHYDROGENASE Lab Routine Primary malignant neuroendocrine tumor of appendix Expected: 07/08/2022, Expires: 07/08/2023[facility] Comment on above:Expected: 07/08/2022, Expires: 07/08/2023Start: 07-08-2022 End: 14-27-2686JB Skull base to mid-thighNUC PET NEUROENDOCRINE Imaging Routine Primary malignant neuroendocrine tumor of appendix Expected:07/08/2022, Expires: 07/08/2023[facility] HospitalComment on above:Expected: 07/08/2022, Expires: 07/08/2023Start: 07-08-2022 End: 22-53-5218Jbrllvk encounter hrogejonr33/21/2022 Office Visit Oncology Andreas Ortega MD, MPH [address] [place] [address] [place] [address] Division of Medical OncologyStart: 07-06-2022 End: 98-45-5986Csrozoarmlud consultation with aakjmxr5207/06/2022 Telemedicine Surgical Oncology Raina Gomes APRN-RETAIL WIRELESS SALES REPRESENTATIVE [address] [place] [address] [facility] Gastrointestinal Cancer [facility]art: 06-09-2022 End: 24-27-9136Msymwmt encounter /22/2022 Office Visit Surgical Oncology Raina Gomes APRN-RETAIL WIRELESS SALES REPRESENTATIVE [address] [place] [address] Division of Surgical OncologyStart: 04-21-2022 End: 01-51-6140Zfyeftdffx and management of ktugsoyhz91/04/2022 Surgery Multispecialty Archie Hugo MD, PhD [address] [place] [address] COLECTOMY PARTIAL LAPAROSCOPICCCCT PERIOP Comment on above:COLECTOMY PARTIAL LAPAROSCOPICStart: 04-21-2022 End: 44-34-7815Fiurznurhqm colectomy partial w/anastomosisCOLECTOMY PARTIAL LAPAROSCOPIC Primary malignant neuroendocrine tumor of appendix 04/21/2022 7:15 AM EDTOSU [facility] ORStart: 41-64-1303Nvcjckvkcu and management of inpatient 04/21/2022 Hospital Encounter Multispecialty Archie Hugo MD, PhD [address] [place] [address] Primary malignant neuroendocrine tumor of appendixCCCT PERIOPComment on above:Primary malignant neuroendocrine tumor of appendixStart: 03-19-2022 End: 27-29-6523Xhwxasocbah flx dx w/collj spec when pfrmdDIAGNOSTIC COLONOSCOPY GI/Bronch STAT Primary malignant neuroendocrine tumor of appendix Expected: 0 03/19/2022, Expires: 03/19/2023[facility] HospitalComment on above: Expected: 03/19/2022, Expires: 03/19/2023Start: 19-33-7473Mziaqtdjf vaccination INFLUENZA VACCINE (#1)OSAdena Fayette Medical Centertart: 03-19-2022 End: 88-72-5490RCHL AND SCREEN - PREADMISSIONTYPE AND SCREEN - PREADMISSION Blood Bank Routine Primary malignant neuroendocrine tumor of appendix Expected: 03/19/2022, Expires: 03/19/2023[facility] Work Phone: Comment on above:Expected: 03/19/2022, Expires: 03/19/2023Start: 41-63-9988WONLA-19 VACCINE (2 - Pfizer risk series)COVID-19 VACCINE (2 - Pfizer risk series)OSA[facility] Centertart: 23-18-3303PJZSO- 19 VACCINE (2 - Pfizer series)COVID-19 VACCINE (2 - Pfizer series)OSAden[facility] Medical Centertart: 90-48-1950GAoY,Tdap and Td Vaccines (6 - Td or Tdap) DTaP,Tdap and Td Vaccines (6 - Td or Tdap)[facility] SystemStart: 80-45-4690Cbzycjz vaccinationTETANUSGood Samaritan Hospitaltart: 2018 Screening for malignant neoplasm of cervixOSAdena Fayette Medical Centertart: 78-79-9772YKBKECMAIJLW VACCINE SERIES (1 of 2 - PCV)PNEUMOCOCCAL VACCINE SERIES (1 of 2 - PCV)OSAden[facility] Medical Centertart: 48-79-2469Rtzra diphtheria, tetanus and acellular pertussis (DTaP) vaccinationTDAP (ADULT)[facility] Centertart: 75-27-3384Vamtee vaccine hzv live for subcutaneous useZOSTER (SHINGLES) VACCINE (1 of 2)OSAden[facility] Centertart: 13-64-6873Peyhm BMI Follow Up PlanAdult BMI Follow Up PlanMary Rutan Hospital SystemStart: 2015 Tetanus vaccinationTETANUSGood Samaritan Hospitaltart: 42-77-2536Raatpqyrr for Chlamydia trachomatisCHLAMYDIA SCREENOSAdena Fayette Medical Centertart: 34-00-1013TBJ screeningHIV SCREENING DISCUSSIONOSAdena Fayette Medical Centertart: 36-26-1209Bvaesuduply for human papillomavirusHPV VACCINE ADOL (2 - 2-dose series)[facility] Hospitaltart: 71-39-8702TSC VACCINE (2 - Risk 3-dose series)HPV VACCINE (2 - Risk 3-dose series)[facility] Hospitaltart: 40-92-8255Czwzxeqxxsd for human papillomavirusHPV VACCINE ADOL (2 - Risk 3-dose series)[facility] Hospitaltart: 20-72-1438Ilxcyvxmfgl for human papillomavirusHPV VACCINE ADOL (1 - 2-dose series)[facility] Start: 72-72-4303YYJTXHPJJYTV VACCINE SERIES (1 - PCV)PNEUMOCOCCAL VACCINE SERIES (1 - PCV)[facility] Hospitaltart: 50-37-3030CTGWMJSVJHBP VACCINE SERIES (1 of 2 - PCV)PNEUMOCOCCAL VACCINE SERIES (1 of 2 - PCV)[facility] Hospitaltart: 75-54-4679LQXHEKNBD SCREENGONORRHEA SCREENOSAdena Fayette Medical Centertart: 03-34-2703Gscxmuuhc C antibody, confirmatory testHEPATITIS C VIRUS SCREENINGOSAdena Fayette Medical Centertart: 45-22-4307Ekvvzrvvx C screening HEPATITIS C VIRUS SCREENINGOSAdena Fayette Medical Centertart: 13-22-5389Guyigumku for Chlamydia trachomatisGONORRHEA SCREENTriHealth McCullough-Hyde Memorial HospitalBacteria identified in Urine by CultureUrine culture Microbiology Routine Pelvic pain in female Ordered: 11/13/2024[facility] Work Phone: comment on above:Ordered: 11/13/2024BC W Auto Differential panel - BloodCBC and differential Lab Routine Menorrhagia with regular cycle Ordered: 08/17/2024[facility] HealthcareComment on above:Ordered: 08/17/2024HROMOGRANIN ACHROMOGRANIN A Lab Routine Primary malignant neuroendocrine tumor of appendix 03/11/2023 11:44 AM [facility] Work Phone: CHROMOGRANIN ACHROMOGRANIN A Lab Routine Low grade mucinous neoplasm of appendix Primary malignant neuroendocrinetumor of appendix 09/18/2024 12:20 PM [facility]CHROMOGRANIN ACHROMOGRANIN A Lab Routine Primary malignant neuroendocrine tumor of appendix 01/22/2025 9:41 AM [facility] Work Phone: End: 77-18-9875JG Abdomen and Pelvis W contrast [facility] Work Phone: Comment on above:1 Occurrences starting 03/31/2022 until 03/31/2022 End: 09-08-6038OD Abdomen and Pelvis WO and W contrast IVTriHealth McCullough-Hyde Memorial Hospital Work Phone: Comment on above:1 Occurrences starting 08/14/2022 until 08/14/2022 End: 80-85-5845BC Abdomen and Pelvis WO and W contrast IVTriHealth McCullough-Hyde Memorial HospitalComment on above:1 Occurrences starting 11/06/2023 until 11/06/2023 End: 26-30-9177NR Abdomen and Pelvis WO and W contrast IVOSU [facility] HospitalComment on above:1 Occurrences starting 02/07/2024 until 02/07/2024 End: 08-88-3074DI Abdomen and Pelvis WO and W contrast IVTriHealth McCullough-Hyde Memorial HospitalComment on above:1 Occurrences starting 09/18/2024 until 09/18/2024 End: 25-04-7032GF Abdomen and Pelvis WO and W contrast IVTriHealth McCullough-Hyde Memorial HospitalComment on above:1 Occurrences starting 01/22/2025 until 01/22/2025 Cytology Cervical or vaginal smear or scraping studyPap Smear Pathology and Cytology Routine Well woman exam with routine gynecological exam Ordered: [facility] Work Phone: comment on above:Ordered: 08/17/2024Ecg routine ecg w/least 12 lds trcg only w/o i&rPR ECG, TRACING ONLY [place] - OFFICE PERFORMED Routine Primary malignant neuroendocrine tumor of appendix Ordered: 03/19/2022 [facility] Memorial HospitalComment on above:Ordered: 03/19/2022Echocardiography ECHOCARDIOGRAM Echocardiography Routine Carcinoid syndrome SOB (shortness of breath) Tachycardia Ordered: 10/07/2022[facility] HospitalComment on above:Ordered: 10/07/2022 End: 03-26-1036RVY / ColonoscopyEGD / Colonoscopy GI Routine Colitis Black stools 1 Occurrences starting 04/13/2024 until 04/13/2025[facility] Work Phone: Comment on above:1 Occurrences starting 04/13/2024 until 04/13/2025hCG, quantitative, pregnancyhCG, quantitative, Lab Routine Menorrhagia with regular cycle Ordered: 08/17/2024[facility] HealthcareComment on above:Ordered: 08/17/2024Hemoglobin A1c/Hemoglobin.total in BloodHemoglobin A1c Lab Routine Menorrhagia with regular cycle Ordered: 08/17/2024[facility] HealthcareComment on above:Ordered: 08/17/2024Laparoscopy colectomy partial w/anastomosisCOLECTOMY PARTIAL LAPAROSCOPIC Primary malignant neuroendocrine tumor of appendixOSU [facility] End: 54-76-1051Jmbymglb resonance imaging of abdomen and pelvis with contrastMRI ABDOMEN/PELVIS WITHOUT AND WITH CONTRAST Imaging Routine Primary malignant neuroendocrine tumorof appendix 1 Occurrences starting 03/09/2023 until 03/09/2023[facility] HospitalComment on above:1 Occurrences starting 03/09/2023 until 03/09/2023rothrombin time (PT) in Blood by Coagulation assay Protime-INR Lab Routine Menorrhagia with regular cycle Ordered: 08/17/2024[facility] HealthcareComment on above:Ordered: 08/17/2024Removal of staplesPR STAPLE REMOVAL [place] - OFFICE PERFORMED Routine Primary malignant neuroendocrine tumor of appendix Ordered: 06/09/2022[facility] HospitalComment on above:Ordered: 06/09/2022URG PATH REQUESTOSJoint Township District Memorial HospitalComment on above:Release Upon Ordering for 1 Occurrences starting 05/22/2022, 1 completedThyrotropin [Units/volume] in Serum or PlasmaTSH Lab Routine Menorrhagia with regular cycle Ordered: 08/17/2024[facility] HealthcareComment on above:Ordered: 08/17/2024Thyroxine (T4) free [Mass/volume] in Serum or PlasmaT4, free Lab Routine Menorrhagia with regular cycle Ordered: 08/17/2024[facility] HospitalComment on above:Ordered: 08/17/2024TRANSIENT ELASTOGRAPHYTRANSIENT ELASTOGRAPHY GI/Bronch Routine Elevated liver enzymes Ordered: 11/26/2023[facility] HospitalComment on above:Ordered: 11/26/2023 Immunizations Immunization DateImmunizationNotesCare OewuqtdrAdommebz25-13-7856FDSH-BzX-9 (COVID-19) mRNA BNT-162b2 Isaias Apodaca 411-3901Dwvmmw-GzaenThe Jewish Hospital Digestive HealthComment on above:Result Comment: 2024-01-25: RCOMLD16-65-6214trfwawgsx virus vaccine, unspecified formulationSouthern Ocean Medical Center BREAD OVEN OPERATOR-RETAIL WIRELESS SALES REPRESENTATIVE Work Phone: [phone]-XadexThe Jewish Hospital Digestive [facility] HospitalComment on above:Result Comment: 2024-01-25: JKJX65-07-6202EMJY-CpZ-1 (COVID-19) mRNA-1273 vaccineMuhammad Sarmini 945-5089Oqwvqs-Sznvw[address] [place], [place] 2313001-13-2021 SARS-CoV-2 (COVID-19) mRNA-1273 vaccineMuhammad Sarmini 031-4523Xqttgx-Gqrxj[address] [place], [place] 2313001-27-2011 HPV, unspecified formulationMuhammad Sarmini 642-3017Trfgpo-Pkotk[address] [place], [place] [address]-27-2011 meningococcal ACWY vaccine, unspecified formulationMuhammad Sarmini 642-3411Cxvftn-CwnodSt. Mary'S Medical Center01-27-2011 tetanus toxoid, reduced diphtheria toxoid, and acellular pertussis vaccine, adsorbedMuhammad Sarmini 678-8475Sokeah-Mjjiv[address] [place], [place] 2313009-16-2002 measles, mumps and rubella virus vaccineMuhammad Sarmini 646-2761Aedjqg-WxnyjSt. Mary'S Medical Center03-05-2001 DTaP, unspecified formulationMuhammad Sarmini 949-2119Duoaza-CngdgSt. Mary'S Medical Center03-05-2001 hepatitis B vaccine, pediatric or pediatric/adolescent dosageMuhammad Sarmini 666-3974Nuaavn-QirpkSt. Mary'S Medical Center03-05-2001 Hib, unspecified formulationMuhammad Sarmini 996-7674Tdyfey-QmjweSt. Mary'S Medical Center03-05-2001 measles, mumps and rubella virus vaccineMuhammad Sarmini 860-1249Arewdi-MaikfSt. Mary'S Medical Center03-05-2001 poliovirus vaccine, unspecified formulationMuhammad Sarmini 499-7162Acuddx-EwvymSt. Mary'S Medical Center04-13-1998 DTaP, unspecified formulationMuhammad Sarmini 889-8430Japlyh-OylccSt. Mary'S Medical Center04-13-1998 Hib, unspecified formulationMuhammad Sarmini 051-6383Ynkkyp-CwluuSt. Mary'S Medical Center04-13-1998 poliovirus vaccine, unspecified formulationMuhammad Sarmini 794-6020Htxgji-OeekoSt. Mary'S Medical [facility] DTaP, unspecified formulationMuhammad Sarmini [phone]-AancaSt. Mary'S Medical Center01-08-1998 hepatitis B vaccine, pediatric or pediatric/adolescent dosageMuhammad Sarmini 502-4696Zllpyc-CtoupSt. Mary'S Medical Center01-08-1998 Hib, unspecified formulationMuhammad Sarmini 857-1932Dzqchx-QbykeSt. Mary'S Medical Center01-08-1998 poliovirus vaccine, unspecified formulationMuhammad Sarmini [phone]-WqkptSt. Mary'S Medical Center1997 hepatitis B vaccine, pediatric or pediatric/adolescent dosageMuhammad Sarmini [phone]-WreutSt. Mary'S Medical Center Payers DatePayer CategoryPayerPolicy [id number] Health Insurance [id number] Care (unspecified) [id number] Managed Care - [facility] Member Subscriber Plan / Payer (Effective 2021-Present) Name: Zainab Swift Relation to Subscriber: Spouse Name: SYBIL SWIFT Date of : 1994 (Home) Address: [place] [address] Payer ID: Not on file Type: Not on file Address: [address] [place] [id number] Care HMO (unspecified)[id number] 81-90-9255OltacxuUTUSFGLQH [employer] PPO [id number] 2021-[facility] [phone] [address] [place] [address] [id number] 1.2.840.342168.1.13.159.2.7.3.617455.30954-89-6227Zsgdfco 1.2.840.446583.1.13.172.2.7.3.362[id number] 2.16.840.1.024339.3.579.[id number] 2.16.840.1.154163.3.579.2.37983-00-3067Nxgpyzb2771029 2.16.840.1.981755.3.579.2.93060-78-5148Nmdvzhb6330090 2.16.840.1.769460.3.579.2.08235-21-9443Hioujhj0654455 2.16.840.1.496156.3.579.[id number] 2.16.840.1.509679.3.57[id number] 2.16.840.1.769719.3.579.2.[id number] 2.16.840.1.815488.3.579.2.29972-71-7950Jnkljgs0812710 2.16.840.1.850086.3.579.2.96262-96-7932Obrmgtx7638423 2.16.840.1.687822.3.579.2.63533-71-7169Nijjeuy5915820 2.16.840.1.526853.3.579.2.11153-47-6273Lsydsgc7544521 2.16.840.1.476009.3.579.2.86124-92-9695Cubttmn4764796 2.16.840.1.015983.3.579.2.38516-57-9156Jlkqtoq3724953 2.16.840.1.615140.3.579.2.48746-49-8585Wbpgwrm9930617 2.16.840.1.519917.3.579.2.60379-34-6547Rxzvpev7916936 2.16.840.1.579241.3.579.2.57768-60-1745Qnqrfxi6007956 2.16.840.1.127550.3.579.2.86871-48-1976Rckwfla89410446 2.16.840.1.511237.3.579.2.447184-82-5573Pxwgmoy55424548 2.16.840.1.575295.3.579.2.434243-23-7404Pjmrnpe11215115 2.16.840.1.128439.3.579.2.525908-35-9349Ggajgml642455329 2.16.840.1.925887.3.579.2.12791-10-5094Osttjzq710306509 2.16.840.1.914914.3.579.2.32298-08-5227Alhdvwp138555962 2.16.840.1.661355.3.579.2.28578-83-9653Aabjvxi358207823 2.16.840.1.931550.3.579.2.29850-84-3301Hhhejjk800799893 2.16.840.1.791064.3.579.2.53824-17-8811Txmthch750915288 2..840.1.989869.3.579.2.70974-15-8010Pafxaut559907232 2.840.1.753220.3.579.2.21915-95-3985Evjoojc127739820 2.840.1.079642.3.579.2.47154-48-6025Etktsbi340860155 2..840.1.884396.3.579.2.94735-68-5578Mrepwew034670402 2.840.1.304085.3.579.2.55741-49-6754Uvafmpk120377363 2..840.1.383349.3.579.2.71126-01-1594Ookpupy696052589 2.840.1.766117.3.579.2.55924-84-6156Vnsnqyp184643653 2.16.840.1.733566.3.579.2.32287-26-6476Bwvgbkr83385343 2.16840.1.651255.3.579.2.108905-91-4560Zvtjksn62406177 2..840.1.504588.3.579.2.118271-07-6520Grkajit2814734 2.16.840.1.036934.3.579.2.730495-17-1903Evixcvo1316174 2..840.1.321036.3.579.2.798623-83-9979Idcysgo4105478 2.16.840.1.603803.3.579.2.804353-79-1144Ijnpchf02754405 2.16.840.1.039521.3.579.2.46043-62-2573Ncarxob12349073 2.16.840.1.766078.3.579.2.01877-86-9142IhxacqlS1456881532MnpxkcfC25738447 2..840.1.636694.38Eqmwrzb82666730 2.16.840.1.780040.3.579.2.764Fpvosio07303847 2..840.1.393950.3.579.2.122Wjygvyj64403129 2.16.840.1.436644.3.579.2.531 Dnahqsq50543085 2.840.1.906575.3.579.2.531 Social History DateTypeDetailFacilityUnknown if ever smokedNort Zadspace Other Start: 03-11-2023 End: 71-40-4623Yxf Assigned At BirthOSU [facility] HospitalTobapr[facility] smoking status NHISTobacco smoking consumption unknownTrihealth [facility] Work Phone: Start: 86-76-4372Iws Assigned At BirthNot on file [facility]: [facility]-19[facility]2022 End: 32-70-1668Qypskkv smoking status NHISNever smoked tobaccoOSAdena Fayette Medical Centertart: 03-31-2022 End: 61-26-4281Omtfprm intakeEx-drinker (finding)[facility]: 37-16-1218Ofuigkm SDOH Alcohol Commentlast alchohol 2020; mixed drink rarelyOSU [facility] Medical Centertart: 02-11-2022 End: 73-02-4713Ouludbe use and exposureSmokeless tobacco non-userOSU [facility] Medical Centertart: 05-12-2022 End: 42-96-0309Uzguulon to SARS-CoV-2 (event)Not sureOSJoint Township District Memorial Hospital Start: 06-28-2022 End: 13-46-6662Aciupilp to SARS-CoV-2 (event)Unable to assessOSU Wexner Medical Centertart: 03-11-2023 End: 08-64-0097Dpvqpvm of Social functionOSAdena Fayette Medical Centertart: 20-74-5501Rcphayonhf depression screening lnnxdplepn6GCTTriHealth [facility] Start: 38-40-6187McdijpxrmLTTX HealthcareStart: 35-87-9624Dlg Assigned At FemaleENCOMPASS HEALTH HealthcareStart: 98-72-4964Trtusz identityIdentifies as female gender (finding)[facility] HealthcareStart: 75-44-7359Bxdidp orientationHeterosexual (finding)[facility] HealthcareDo you belong to any clubs or organizations such as sikhism groups, unions, fraternal or athletic groups, or school groups?No [facility] SystemAre you now , , , , never or living with a partner?MarriedProMedica Health SystemHow often to you have a drink containing alcohol?NeverProMedica Health SystemHow hard is it for you to pay for the very basics like food, housing, medical care, and heating Somewhat hardProMedica Health SystemDo you feel stress - tense, restless, nervous, or anxious, or unable to sleep at night because yourmind is troubled all the time - these days [OSQ]Very muchProMedica Health SystemStart: 02-18-2022 Gihuspacp62YspTfqnko Health SystemStart: 02-04-2022 End: 00-52-0235FrwHvqnxx (finding)[facility] SystemStart: 12-21-2024 Alcoholic beverage intakeLifetime non-drinker (finding)[facility] Sexual [facility]rientationThe [facility] Goals DatePatient GoalDesired Activity/StatePersonal health goal Functional Status OinsGzbgoptdtrGyzydpZsorwrrz42-88-8652Idcrontnle StatusN/AmandaOhiohealth [facility] General Hospital Digestive Wkbmdy08-92-5212Keu you deaf, or do you have serious difficulty hearingNo 05/22/2022 3:44 PM EDT Yvrose Chamberlain RN [facility]11-04-2022Are you blind, or do you have serious difficulty seeing, even when wearing glassesNo 05/22/2022 3:44 PM EDT Yvrose Chamberlain RN NoTriHealth McCullough-Hyde Memorial Hospital11-04-2022Do you have serious difficulty walking or climbing stairsNo 05/22/2022 3:44 PM EDT Yvrose Chamberlain RN [facility] 27-90-3867Lu you have difficulty dressing or bathingNo 05/22/2022 3:44 PM EDT Yvrose Chamberlain RN [facility]11-04-2022Because of a physical, mental, or emotional condition, do you have difficulty doing errands alone such as visiting a physician's office or shoppingNo 05/22/2022 3:44 PM EDT Yvrose Chamberlain RN [facility] Mental Status YjmdQliklnlallMcccyzNxtwvxjw46-44-5053Mmmddio of a physical, mental, or emotional condition, do you have serious difficulty concentrating, remembering, or making decisionsNo 05/22/2022 3:44 PM EDT Yvrose Chamberlain RN [facility] Clinical Notes 12-22-2021 to 02-07-2025 Note Date & SjmtFkyfMpnodrie44-14-0493 Telephone encounter Note* Telephone Encounter - Geneva Moncada RN - 02/07/2025 9:34 AM EDT Sent My Chart Message 02/07/25 asking patient if / when / where she had c-diff testing and hydrogen breath test done. [facility]07-23-2025 Miscellaneous Notes* Telephone Encounter - Geneva Moncada RN - [...] hydrogen breath test have been completed locally [facility]. Orders sent via Eloquii on 01/31 documented in this encounterTriHealth McCullough-Hyde Memorial Hospital07-23-2025 Telephone encounter Note* Telephone Encounter - Geneva Moncada RN - 02/07/2025 8:52 AM EDT ----- Message from RUPERT Bran sent at 01/31/2025 9:46 AM EDT ----- Regarding: c-diff and Hydrogen breath test Please f/up with pt to see if c-diff testing or hydrogen [place] Orders sent via Eloquii on 01/31 [facility]07-17-2025 History of Present illness Narrative* Eve Salazar - 02/01/2025 10:40 AM EDT Reason for Appointment: Patient ID: Zainab Swift is a 29 y.o. female who presents for Pre-op Visit Patient presents today for Pre Op appointment. Patient is scheduled to undergo Diagnostic Laparoscopy, possible DANA, possible FOE, possible BSO on 03-02-[address] Ruano at [facility]. MEDICATIONS Current Outpatient Medications Medication Instructions [...] reviewed, and patient is to proceed to [facility] OR. Follow Up: Patient is to follow up between 1-2 weeks post operative to assess proper healing and recovery fromprocedure. Documented by Rhoda Ortega LPN on behalf of: Ron Ruano DO documented in this encounterProgress West HospitalKrqoepafrr16-18-8896 Hospital Discharge instructions Follow Up Care 01/31/2025 15:59:02 With:Paulie DUPONT, JIAN Davis, [facility] Address: [address] [place] [address], [address] [phone] When:Within 2 Month(s) [facility] 06-05-2025 History of Present illness Narrative* Nadege Pleitez MD - 12/21/2024 9:00 AM EDT I have had the pleasure of seeing Ms. Zainab Swift [facility] today. Patient was referred by Yoel Cooley APRN-C* for evaluation of +HUNTER, has [...] upper back pain and general body aches. Szce-zvo-jbfztin medications provide some relief, but she has [...] vision, lasting a couple of hours. An customer assistance associate diagnosed her with minor astigmatism but could [...] or use drugs. 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 FAMILY HISTORY Her mother was diagnosed [...] patient education regarding fibromyalgia. Recommended utilization of [employer] [facility]'s Fibroguide ([employer]) and self-care modules. - Will defer medical [...] will follow-up as needed Nadege Pleitez MD Laser Engineer Department of Rheumatology and Immunology [facility] Records reviewed for today's visit included but was not limited to: [facility] in- house chart, laboratory and imaging results relevant to today's visit, oracle ascp consultant notes, [facility] Centerwhere [facility] (if available). Total time spent for [...] probiotic product, and rizatriptan. documented in this [facility]06-05-2025 Instructions* Patient Instructions* Nadege Pleitez MD - 12/21/2024 9:00 AM [...] another condition Online resources for fibromyalgia include: [facility] - painguide.Workspot National Fibromyalgia Association - www.fmaware.org Fibromyalgia Care Society of [place] - fibro.org Cognitive Behavioral Therapy Resource - [employer] Advocacy Support Fibro - supportfibromyalgia.org documented in this encounterOSU Wilson Memorial Hospital2025 History of Present illness Narrative* Rhoda Ortega, FNP - 11/21/2024 11:30 AM EDT Reason for Appointment: Patient ID: Zainab Swift is a 29 y.o. female who presents for Pre-op Visit Patient presents today for Pre Op appointment. Patient is scheduled to undergo Diagnostic Laparoscopy, possible DANA, possible FOE, possible BSO on 12/15/[address] Ruano at [facility]. MEDICATIONS Current Outpatient Medications Medication Instructions [...] nursing note reviewed. Exam conducted with a gatekeeper present. Vitals: Estimated body mass index is [...] with the patient in detail and patient desiressurgical management at this time. Patient will undergo Diagnostic Laparoscopy, possible DANA, possible FOE, possible BSO on 12/15/24. Surgical consents were signed, mmc was reviewed, and patient is to proceed to [facility] OR. Follow Up: Patient is to follow up between 1-2 weeks post operative to assess proper healing and recovery fromprocedure. Documented by Beata Franco LPN on behalf of: Ron Ruano DO documented in this encounterProgress West HospitalOujxvyjlzn65-43-5522 Telephone encounter Note* Telephone Encounter - Yadira Lane MD - 11/16/2024 5:09 PM EDT Discussed with Ms. Lamb about her migraine injections. Her insurance does not cover Aimovig. We have to switch to Emgality which is approved by her medical insurance. We discussed she will give her self the loading dose injections of 2ml. Then she will belt picker the monthly maintenance injection of Emgality at the local pharmacy. Injection teaching over the phone. I also encouraged her to discuss with local pharmacist for any questions and instructionsfor Emgality use. She can use rizatriptan while being on Emgality injections. I discussed that response may take upto 3 months of the injections. Called the local pharmacy and confirmed Emgality loading dose is ready for pick-up. Yadira Lane MD, PhD OSJoint [facility]05-01-2025 Miscellaneous Notes* Telephone Encounter - Yadira Lane MD - 11/16/2024 5:09 PM EDT Discussed with Ms. Lamb about her migraine injections. Her insurance does not cover Aimovig. We have to switch to Emgality which is approved by her medical insurance. We discussed she will give her self the loading dose injections of 2ml. Then she will belt picker the monthly maintenance injection of Emgality at the local pharmacy. Injection teaching over the phone. I also encouraged her to discuss with local pharmacist for any questions and instructionsfor Emgality use. She can use rizatriptan while being on Emgality injections. I discussed that response may take upto 3 months of the injections. Called the local pharmacy and confirmed Emgality loading dose is ready for pick-up. Yadira Lane MD, PhD * Addendum Note - Yadira Lane MD - 11/16/2024 1:24 PM EDTAddended by: YADIRA LANE on: 11/16/2024 01:24 PM Modules accepted: Orders * Telephone Encounter - Johana Giordano - 11/16/2024 11:44 AM EDT Medication Access Team coordinated the following [facility] Clinics: MS/Neurology Prior Authorization Per the patient's insurance provider, [employer], the prior authorization for Emgality 120 (on-label) was approved. Authorization number: [id number] Authorization start date: 11.16.24 Authorization end date: 11.15.25 #2ml per 30 days $35.00 Non-Specialty Prescriptions: 1, 8-10 min Johana Giordano * Telephone Encounter - Johana Giordano - 11/16/2024 8:53 AM EDT Images from the original note were not included. Loading dose Emgality is already marked in the system (this happens frequently) We can wait to prescribe until insurance gives us a determination before doing these scripts for loading and maintenance. * Telephone Encounter - Johana Giordano - 11/15/2024 4:02 PM EDT Requested PA for Galcanezumab-gnlm 120 MG/ML Solution Auto-injector loading dose Johana Giordano * Addendum Note - Yadira Lane MD - 11/15/2024 3:48 PM EDTAddended by: YADIRA LANE on: 11/15/2024 03:48 PM Modules accepted: Orders * Telephone Encounter - Louie Elizabeth - 11/09/2024 4:54 PM EDT Requested Prescriptions Pending Prescriptions Disp Refills Galcanezumab-gnlm (Emgality) 120 MG/ML Solution Auto-injector [Pharmacy Med Name: EMGALITY 120 MG/ML PEN] 0 Last office visit: 11/09/24 Next office visit: has not been scheduled yet Medication last filled: Erenumab-aooe (Aimovig) 70 MG/ML Solution Auto-injector. 11/09/24 documented in this encounterU Wilson Memorial Hospital05-01-2025 Note* Addendum Note - Yadira Lane MD - 11/16/2024 1:24 PM EDTAddended by: YADIRA LANE on: 11/16/2024 01:24 PM Modules accepted: Orders [facility]05-01-2025 Note* Addendum Note - Yadira Lane MD - 11/16/2024 1:24 PM EDTAddended by: YADIRA LANE on: 11/16/2024 01:24 PM Modules accepted: Orders [facility]05-01-2025 Miscellaneous Notes* Addendum Note - Yadira Lane MD - 11/16/2024 1:24 PM EDTAddended by: YADIRA LANE on: 11/16/2024 01:24 PM Modules accepted: Orders * Telephone Encounter - Johana Giordano - 11/16/2024 11:44 AM EDT Medication Access Team coordinated the following [facility] PAC Clinics: MS/Neurology Prior Authorization Per the patient's insurance provider, [employer], the prior authorization for Emgality 120 (on-label) was approved. Authorization number: [id number] Authorization start date: 11.16.24 Authorization end date: 11.15.25 #2ml per 30 days $35.00 Non-Specialty Prescriptions: 1, 8-10 min Johana Giordano * Telephone Encounter - Johana Giordano - 11/16/2024 8:53 AM EDT Images from the original note were not included. Loading dose Emgality is already marked in the system (this happens frequently) We can wait to prescribe until insurance gives us a determination before doing these scripts for loading and maintenance. * Telephone Encounter - Johana Giordano - 11/15/2024 4:02 PM EDT Requested PA for Galcanezumab-gnlm 120 MG/ML Solution Auto-injector loading dose Johana Giordano * Addendum Note - Yadira Lane MD - 11/15/2024 3:48 PM EDTAddended by: YADIRA LANE on: 11/15/2024 03:48 PM Modules accepted: Orders * Telephone Encounter - Louie Elizabeth - 11/09/2024 4:54 PM EDT Requested Prescriptions Pending Prescriptions Disp Refills Galcanezumab-gnlm (Emgality) 120 MG/ML Solution Auto-injector [Pharmacy Med Name: EMGALITY 120 MG/ML PEN] 0 Last office visit: 11/09/24 Next office visit: has not been scheduled yet Medication last filled: Erenumab-aooe (Aimovig) 70 MG/ML Solution Auto-injector. 11/09/24 documented in this encounterOSU Wilson Memorial Hospital05-01-2025 Telephone encounter Note* Telephone Encounter - Johana Giordano - 11/16/2024 11:44 AM EDT Medication Access Team coordinated [facility]: MS/Neurology Prior Authorization Per the patient's insurance provider, [employer], the prior authorization for Emgality 120 (on-label) was approved. Authorization number: [id number] Authorization start date: 11.16.24 Authorization end date: 11.15.25 #2ml per 30 days $35.00 Non-Specialty Prescriptions: 1, 8-10 min Johana Giordano [facility]05-01-2025 Telephone encounter Note* Telephone Encounter - Johana Giordano - 11/16/2024 8:53 AM EDT Images from the original note were not included. Loading dose Emgality is already marked in the system (this happens frequently) We can wait to prescribe until insurance gives us a determination before doing these scripts for loading and maintenance. [facility]04-30-2025 Telephone encounter Note* Telephone Encounter - Johana Giordano - 11/15/2024 4:02 PM EDT Requested PA for Galcanezumab-gnlm 120 MG/ML Solution Auto-injector loading dose Johana Giordano [facility]04-30-2025 Miscellaneous Notes* Telephone Encounter - Johana Giordano - 11/15/2024 4:02 PM EDT Requested PA for Galcanezumab-gnlm 120 MG/ML Solution Auto-injector loading dose Johana Giordano * Addendum Note - Yadira Lane MD - 11/15/2024 3:48 PM EDTAddended by: YADIRA LANE on: 11/15/2024 03:48 PM Modules accepted: Orders * Telephone Encounter - Louie Elizabeth - 11/09/2024 4:54 PM EDT Requested Prescriptions Pending Prescriptions Disp Refills Galcanezumab-gnlm (Emgality) 120 MG/ML Solution Auto-injector [Pharmacy Med Name: EMGALITY 120 MG/ML PEN] 0 Last office visit: 11/09/24 Next office visit: has not been scheduled yet Medication last filled: Erenumab-aooe (Aimovig) 70 MG/ML Solution Auto-injector. 11/09/24 documented in this encounterOSU Wilson Memorial Hospital04-30-2025 Note* Addendum Note - Yadira Lane MD - 11/15/2024 3:48 PM EDTAddended by: YADIRA LANE on: 11/15/2024 03:48 PM Modules accepted: Orders [facility]04-30-2025 Note* Addendum Note - Yadira Lane MD - 11/15/2024 3:48 PM EDTAddended by: YADIRA LANE on: 11/15/2024 03:48 PM Modules accepted: Orders [facility]04-30-2025 Note* Addendum Note - Yadira Lane MD - 11/15/2024 3:48 PM EDTAddended by: YADIRA LANE on: 11/15/2024 03:48 PM Modules accepted: Orders [facility]04-28-2025 History of Present illness Narrative* Rhoda Ortega LPN - 11/13/2024 10:30 AM EDT Reason for Appointment: Patient ID: [...] nursing note reviewed. Exam conducted with a gatekeeper present. Vitals: Estimated body mass index is [...] of: Ron Ruano DO documented in this encounterProgress West HospitalIvbmmmnalo52-17-3353 Telephone encounter Note* Telephone Encounter - Louie Elizabeth - 11/09/2024 4:54 PM EDT Requested Prescriptions Pending Prescriptions Disp Refills Galcanezumab-gnlm (Emgality) 120 MG/ML Solution Auto-injector [Pharmacy Med Name: EMGALITY 120 MG/ML PEN] 0 Last office visit: 11/09/24 Next office visit: has not been scheduled yet Medication last filled: Erenumab-aooe (Aimovig) 70 MG/ML Solution Auto-injector. 11/09/24 [facility]04-24-2025 History of Present illness Narrative* Yadira Lane MD - 11/09/2024 3:15 PM EDT Images from the original note were not included. [facility] NOTE Chief complaint: Patient with history of NET (EDELMIRA on recent imaging) with complaints of worsening migraine headachesnot relieved by tylenol and fluid intake. Would like further evaluation, has tried working with PCPand did not find relief. History of present [...] 4th and 5th digits), no pain at elbowor wrist. She also has tingling below the [...] liver pain, last dose January 2024, her flu shing, heart palpitations, SOB have got worse. However, per report, she still want to hold off due to prior SE. She has been monitored for carcinoid syndrome. With active surveillance scans q4 m. Last seen on 09/28/2024 at [facility] cancer center. - on going flushing q2days, [...] PhD; Location: [facility] DEBULKING INTRA-ABDOMINAL/PELVIC/RETROPERITONEAL W/ OMENECTOMY & PELVIC PARA- AORTIC LYMPHADENECTOMY N/A 05/22/2022 Laterality: N/A; Surgeon: Archie Hugo MD, PhD; Location: [facility] COLECTOMY PARTIAL LAPAROSCOPIC N/A 04/21/2022 Laterality: N/A; Surgeon: Archie Hugo MD, PhD; Location: [facility] COLONOSCOPY DIAGNOSTIC 04/08/2022 APPENDECTOMY LAPAROSCOPIC 02/03/2022 [place], [place] Family History Problem Relation Age of [...] Resource Strain: Medium Risk (02/18/2022) Received from [facility], [facility] Overall Financial Resource Strain (CARDIA) Difficulty of Paying Living Expenses: Somewhat hard Food Insecurity: Unknown (04/13/2024) [facility] Hunger Screening Within the past 12 months we worried whether our food would run out before we got money to buy more.: Never True Food Insecurity - Inability: Not on file Transportation Needs: Low Risk (07/09/2023) [facility] from [facility]), [facility] ([facility]) Transportation Has a lack of transportation kept you from medical appointments, meetings, work, or from getting things needed for daily living?: Not on file Physical Activity: Insufficiently Active (02/18/2022) Received from [facility], [facility] Exercise Vital Sign Days of Exercise per Week: 3 days Minutes of Exercise per Session: 40 min Stress: Stress Concern Present (02/18/2022) Received from [facility], [facility] [place] [employer] - Occupational Stress Questionnaire Feeling of Stress : Very much Social Connections: Unknown (02/18/2022) Received from [facility], [facility] Social Connection and Isolation Panel [NHANES] Frequency of Communication with Friends and Family: Twice a week Frequency of Social Gatherings with Friends and Family: Patient declined Attends Hoahaoism Services: Never Active Member of Clubs or [...] minerals, THERAPEUTIC-M,) tablet Take 1 tablet by mouthdaily. Octreotide Acetate 100 MCG/ML Solution Prefilled Syringe [...] to confrontation. PERRL. Normal conjunctivae and lids plastic surgeon III, IV and : extraocular movements intact. [...] Jaw jerk Montero Babinski Down Down Coordination: Grbnbo-iu-snhw intact bilaterally. Sensation: Comments Light touch Intact throughout Pin prick Intact throughout Temperature Intact throughout Vibration Intact throughout Proprioception Intact throughout Gait: Normal stride length, arm swing, and base width. Able to toe, heel, and tandem walk. NegativeRomberg. Laboratory data: CBC wnl, except platelet 395 [...] phonophobia, nausea, daily episodes with migraine days andsevere migraine days , refractory to OTC tylenol, ibuprofen. Also previously tried topiramate,intolerance to gabapentin, already on fluoxetine. She has [...] chest pain, will recommend rizatriptan for headache rescuemedications. Discussed the risk factors of heart attack or stroke due to excess risk of rizatriptan. She understands that she should not exceed the dosages that recommended on the instructions. Physical therapy for neck tightness Zofran for prodromal nausea For her tingling, intermittent, migratory, with non-focal exam, likely associated with her migrainesyndrome. Will monitor the symptoms. Mitomycin is not known to cause paresthesia/peripheral neuropathy. If symptoms become persistent, the next step is to complete peripheral neuropathy workup +/- EMG Recommendations: - Maintenance therapy: Aimovig 10mg monthly injection, prior authorization started. - Rescue therapy: rizatriptan 10mg PRN, at the onset of severe headache. Follow the instructions onthe medications. - Zofran as needed for nausea - Physical therapy for neck tightness - Continue life-style management: good sleep hygiene, adequate hydration, nutrition and stress management - Non-urgent my-chart messages Thank you for allowing us the opportunity to participate in the care of your patient. Please do nothesitate to contact our office should you have any questions. Staffed with Narinder Noble, Sincerely, Yadira Lane MD, PhD PGY-3 Department of Neurology I saw and independently examined the patient on 11/09/2024. I agree with the history, examination, and medical decision making as noted by Dr. Lane. Ed Noble MD Laser Engineer of Neurology [facility] [place] documented in this encounterTri[facility] Instructions* Patient Instructions* Yadira Lane MD - 11/09/2024 3:15 PM EDT [...] up in 3 months documented in this [facility]03-13-2025 Note* Addendum Note - MAMTA Melara - 09/28/2024 1:02 PM EDTAddended by: YOEL COOLEY on: 09/28/2024 01:02 PM Modules accepted: [facility]* Addendum Note - CAMELIA Melara CNP - 09/28/2024 1:02 PM EDTAddended by: YOEL COOLEY on: 09/28/2024 01:02 PM Modules accepted: [facility]* Addendum Note - CAMELIA Melara CNP - 09/28/2024 1:02 PM EDTAddended by: YOEL COOLEY on: 09/28/2024 01:02 PM Modules accepted: [facility] Miscellaneous Notes* Addendum Note - MAMTA Melara - 09/28/2024 1:02 PM EDTAddended by: YOEL COOLEY on: 09/28/2024 01:02 PM Modules accepted: Orders * Telephone Encounter - Danielle Saunders - 09/28/2024 12:40 PM EDT Called patient and patient is scheduled as outlined by AVS. Patient asking for a financial reporting director referral [facility]. Patient stated [facility] one [facility] but would like to see someone different. Is someone able to help with this please? Thank you! Instructions from MAMTA Stanley RTC: 4 months with labs, scans 1 week prior with Ye Referral [facility] neurology headache clinic [facility] Telephone encounter Note* Telephone Encounter - Danielle Saunders - 09/28/2024 12:40 PM EDT Called patient and patient is scheduled as outlined by AVS. Patient asking for a financial reporting director referral for [facility]. Patient stated [facility] one [facility] at [facility] but would like to see someone different. Is someone able to help with this please? Thank you! Instructions from Yoel Cooley APRN-RETAIL WIRELESS SALES REPRESENTATIVE RTC: 4 months with labs, scans 1 week prior with Ye Referral to neurology headache clinic [facility]01-30-[facility] History of Present illness Narrative* TROY Jorge - 08/17/2024 2:00 PM EST Reason for Appointment: Patient ID: Zainab Swift [...] nursing note reviewed. Exam conducted with a gatekeeper present. Vitals: Estimated body mass index is [...] past several months her periods have become painfuland irregular. She states she wished to conceive again in the near future. We will order wellness labs and ultrasound, patient will follow up with DR Ruano. Documented by TROY Jorge on behalf of: TROY Jorge documented in this encounterProgress West [id number] Miscellaneous Notes* Telephone Encounter - Alena Beauchamp CMA - 05/15/2024 2:42 PM EDT ----- Message from Dr. Timmy Hall, sent at 05/15/2024 10:51 AM EDT ----- Please let patient know that she had mild chronic gastritis and I recommend taking omeprazole OTC for 6 weeks otherwise she may follow up p.r.n.. ThanksDr. Smith * Telephone Encounter - Alena Beauchamp CMA - 05/15/2024 2:42 PM EDT Spoke with patient regarding pathology results. Patient verbally understood with no further questions. documented in this [facility]-28-[facility]24 Telephone encounter Note* Telephone Encounter - Alena Beauchamp CMA - 05/15/2024 2:42 PM EDT ----- Message from Dr. Timmy Hall, sent at 05/15/2024 10:51 AM EDT ----- Please let patient know that she had mild chronic gastritis and I recommend taking omeprazole OTC for 6 weeks otherwise she may follow up p.r.n.. ThanksDr. Smith [facility]10-28-[facility] Telephone encounter Note* Telephone Encounter - Alena Beauchamp CMA - 05/15/2024 2:42 PM EDT Spoke with patient regarding pathology results. Patient verbally understood with no further questions. [facility]-04-[facility] Telephone encounter Note* Telephone Encounter - Piedad Best RN - 04/21/2024 1:33 PM EDT Patient returned phone call to RN. Patient informed recommend canceling ct scan on 05/23/[address] scan of abdomen/pelvis which was unremarkable on 04/13/24. Inquired if abdominal pain was any better. Patient stated the abdominal discomfort is still the same. Patient will be getting a coloscopy and endoscopy locally on 05/03/24. Patient will contact clinic when test completed to obtain reports. [facility]10-04-2024 Miscellaneous Notes* Telephone Encounter - Piedad Best RN - 04/21/2024 1:33 PM EDT Patient returned phone call to RN. Patient informed recommend canceling ct scan on 05/23/[address] scan of abdomen/pelvis which was unremarkable on 04/13/24. Inquired if abdominal pain was any better. Patient stated the abdominal discomfort is still the same. Patient will be getting a coloscopy and endoscopy locally on 05/03/24. Patient will contact clinic when test completed to obtain reports. * Telephone Encounter - Piedad Best RN - 04/21/2024 1:21 PM EDT Attempted to contact patient and message left. * Telephone Encounter - Yoel Medrano RN - 04/12/2024 11:43 AM EDT 04/12/2024 11:43 AM Patient sent a my chart message asking this per Dr Ortega: Did she try cholestyramine for the diarrhea? RN also let her know via my chart about her scan. --Yoel Medrano RN * Telephone Encounter - Pinky Morales RN - 04/11/2024 4:31 PM EDT Call placed to patient - states she [...] rescheduled and wondered if she could have CTscans in the meantime? Pain - Location RUQ - midgastric to RUQ radiates. Frequency intermittent - but everyday a few times per day Rating: when it comes on it's 6-01/25 Aggravating: eating Alleviating: only thing is oxycodone Nausea is really bad and it's painful to have bowel movements Any blood in stool? Yes dark blood in stools just a couple instances * Telephone Encounter - Quin Kelly - 04/11/2024 8:56 AM EDT Patient phoned in stating that she was scheduled for her PET scan tomorrow however she had her Octreotide injection 8 days ago so it was rescheduled to 04/25/24. She c/o abdominal giei-zcxaz-fto RUQ, nausea, no vomiting or fevers, occasional chills, and more frequent diarrhea outside of her normal daily diarrhea. She is inquiring if would order a CT of her abdomen. She is requesting a call back. documented in this encounterOSJoint [facility]10-04-2024 Telephone encounter Note* Telephone Encounter - Piedad Best RN - 04/21/2024 1:21 PM EDT Attempted to contact patient and message left. [facility]09-26-[facility] History of Present illness Narrative* Aurelia Chakraborty, BREAD OVEN OPERATOR-RETAIL WIRELESS SALES REPRESENTATIVE - 04/13/2024 10:30 AM EDT Images from the original note [...] also mucousy. She is having nausea after mealsand reports intermittent heartburn. She denies fever. She has a history of C diff. She was checked for this recently and reports that everything came back negative. 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 Review of Systems Constitutional: Negative for fever and unexpected weight change. HENT: Negative for trouble swallowing. Respiratory: Negative for shortness of breath. Cardiovascular: Negative for chest pain. Gastrointestinal: Positive for nausea, abdominal pain, diarrhea and black tarry stool. Negative forvomiting and constipation. Genitourinary: Negative for dysuria and difficulty urinating. Musculoskeletal: Negative for gait problem. Skin: Negative for rash and wound. Neurological: Negative for dizziness, weakness and light-headedness. Hematological: Does not bruise/bleed easily. Psychiatric/Behavioral: Negative for confusion. Past Medical History: Diagnosis Date Anxiety and depression Back pain Cancer ([facility]) GERD (gastroesophageal reflux disease) Migraine Neuroendocrine cancer ([facility]) Personality disorder ([facility]) Past Surgical History: Procedure Laterality Date APPENDECTOMY 02/03/2022 COLON SURGERY 05/22/2022 Right Hem[facility]lectomy- [facility] COLONOSCOPY DAVINCI CHOLECYSTECTOMY N/A 06/18/2023 Performed by Carmen Saab MD at [facility] LAPAROTOMY 04/21/2022 [facility] LYMPH NODE BIOPSY SMALL INTESTINE SURGERY [...] by mouth daily as needed for nausea orvomiting., Disp: , Rfl: Social History Socioeconomic History [...] 40 min Stress: Stress Concern Present (02/18/2022) [place] [employer] - Occupational Stress Questionnaire Feeling of Stress : Very much Social Connections: Unknown (02/18/2022) Social Connection and Isolation Panel [NHANES] Frequency of Communication with Friends and Family: Twice a week Frequency of Social Gatherings with Friends and Family: Patient declined Attends Hoahaoism Services: Never Active Member of Clubs or [...] and colonoscopy at a later date in [place] Evaluation included: Preparing to see the patient (e.g., review of tests) Obtaining and/or reviewing separately obtained history Performing a medically appropriate examination and/or evaluation Counseling and educating the patient/family/caregiver Referring and communicating with other health long term care administrator Colitis [K52.9] MAMTA LEWIS [facility] [place] This note was created with the assistance of a speech recognition program. While intending to generate a timely document that accurately reflects the content of the visit, no guarantee can be provided that every grammatical or spelling mistake has been or will be identified or corrected. Thank you for your understanding. MAMTA Lewis 04/14/24 [id number] documented in this encounterMer[facility]09-25-2024 Telephone encounter Note* Telephone Encounter - Yoel Medrano RN - 04/12/2024 11:43 AM EDT 04/12/2024 11:43 AM Patient sent a [employer] chart message asking this per Dr Ortega: Did she try cholestyramine for the diarrhea? RN also let her know via my chart about her scan. --Yoel Medrano RN [facility]09-25-2024 Miscellaneous Notes* Telephone Encounter - Yoel Medrano RN - 04/12/2024 11:43 AM EDT 04/12/2024 11:43 AM Patient sent a my chart message asking this per Dr Ortega: Did she try cholestyramine for the diarrhea? RN also let her know via my chart about her scan. --Yoel Medrano RN * Telephone Encounter - Pinky Morales RN - 04/11/2024 4:31 PM EDT Call placed to patient - states she [...] rescheduled and wondered if she could have CTscans in the meantime? Pain - Location RUQ - midgastric to RUQ radiates. Frequency intermittent - but everyday a few times per day Rating: when it comes on it's 6-7/10 Aggravating: eating Alleviating: only thing is oxycodone Nausea is really bad and it's painful to have bowel movements Any blood in stool? Yes dark blood in stools just a couple instances * Telephone Encounter - Quin Kelly - 04/11/2024 8:56 AM EDT Patient phoned in stating that she was scheduled for her PET scan tomorrow however she had her Octreotide injection 8 days ago so it was rescheduled to 04/25/24. She c/o abdominal jmob-yqvqe-lur RUQ, nausea, no vomiting or fevers, occasional chills, and more frequent diarrhea outside of her normal daily diarrhea. She is inquiring if would order a CT of her abdomen. She is requesting a call back. documented in this encounterOS[facility]09-[facility]24 Telephone encounter Note* Telephone Encounter - Pinky Morales RN - 04/11/2024 4:31 PM EDT Call placed to patient - states she [...] rescheduled and wondered if she could have CTscans in the meantime? Pain - Location RUQ - midgastric to RUQ radiates. Frequency intermittent - but everyday a few times per day Rating: when it comes on it's 6-01/25 Aggravating: eating Alleviating: only thing is oxycodone Nausea is really bad and it's painful to have bowel movements Any blood in stool? Yes dark blood in stools just a couple instances [facility]09-24-20[facility] Telephone encounter Note* Telephone Encounter - Quin Kelly - 04/11/2024 8:56 AM EDT Patient phoned in stating that she was scheduled for her PET scan tomorrow however she had her Octreotide injection 8 days ago so it was rescheduled to 04/25/24. She c/o abdominal mjhy-zgvkd-jew RUQ, nausea, no vomiting or fevers, occasional chills, and more frequent diarrhea outside of her normal daily diarrhea. She is inquiring if would order a CT of her abdomen. She is requesting a call back. [facility]08-30-2024 Note* Addendum Note - MAMTA Travis - 03/17/2024 4:17 PM EDTAddended by: CHRISTOPHER MORALEZ on: 03/17/2024 04:17 PM Modules accepted: Orders [facility]08-30-2024 Note* Addendum Note - MAMTA Travis - 03/17/2024 4:17 PM EDTAddended by: CHRISTOPHER MORALEZ on: 03/17/2024 04:17 PM Modules accepted: Orders [facility]08-30-2024 Telephone encounter Note* Telephone Encounter - MAMTA Travis - 03/17/2024 4:17 PM EDT Refilled [facility]08-30-2024 Miscellaneous Notes* Addendum Note - MAMTA Travis - 03/17/2024 4:17 PM EDTAddended by: CHRISTOPHER MORALEZ on: 03/17/2024 04:17 PM Modules accepted: Orders * Telephone Encounter - MAMTA Travis - 03/17/2024 4:17 PM EDT Refilled * Telephone Encounter - Pinky Morales RN - 03/17/2024 3:32 PM EDT Call placed to patient - she was rescheduled for April 04. They asked to ask us if they have to have an order sent to their clinic? Surgery center in [place]. She didn't ever belt picker the prescription for her short acting octreotide. She'd be happy to pick that up to take the short acting shots prior to procedure. * Telephone Encounter - Lyndon Little RN - 03/13/2024 1:27 PM EDT Called to speak to patient regarding her colonoscopy but no answer at this time. LVM to have patient call us back at their earliest convenience * Telephone Encounter - Avril Umanzor - 03/13/2024 11:31 AM EDT Patient calling in stating she has a colonoscopy scheduled tomorrow. The surgery center where she is getting it done does not have the Octreotide she should take. Wanting to know if she should reschedule. Requesting a response as soon as possible as she will need to start prep soon. [phone] documented in this encounterTriHealth [facility]08-30-2024 Telephone encounter Note* Telephone Encounter - Pinky Morales RN - 03/17/2024 3:32 PM EDT Call placed to patient - she was rescheduled for April 04. They asked to ask us if they have to have an order sent to their clinic? Surgery center in [place]. She didn't ever belt picker the prescription for her short acting octreotide. She'd be happy to pick that up to take the short acting shots prior to procedure. [facility]08-26-20[facility] Telephone encounter Note* Telephone Encounter - Lyndon Little RN - 03/13/2024 1:27 PM EDT Called to speak to patient regarding her colonoscopy but no answer at this time. LVM to have patient call us back at their earliest convenience [facility]08-26-2024 Telephone encounter Note* Telephone Encounter - Avril Umanzor - 03/13/2024 11:31 AM EDT Patient calling in stating she has a colonoscopy scheduled tomorrow. The surgery center where she is getting it done does not have the Octreotide she should take. Wanting to know if she should reschedule. Requesting a response as soon as possible as she will need to start prep soon. [phone] [facility]07-[facility] Evaluation + Plan note Future Scheduled Tests Laboratory* Celiac Disease Comprehensive 02/07/24 * Celiac Disease Comprehensive 02/07/24 [facility] [id number] History of Present illness Narrative* Jayne Singh, SPENCER-RETAIL WIRELESS SALES REPRESENTATIVE - 01/06/2024 3:00 PM EDT Images from the original note were not included. Referring Physician: Dr. Andreas Ortega Attending Physician: Dr. 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 female with a past medical history of GERD and mood disorder. RLQ pain.She underwent an appendectomy at [facility] 02/03/22. Pathology was consistent with both LAMNand well differentiated neuroendocrine tumor. The LAMN was located in the distal end with surface disruption. It measures 3.5 cm and penetrates through the appendiceal wall and is present at the serosal surface. The well differentiated neuroendocrine tumor was in the proximal half and measures 2.2 cm. It invades into subserosa and mesoappendiceal adipose tissue, with focal lymphovascular invasionand perineural invasion. The resection margin was focally [...] would be consistent with intraperitoneal acellular mucin secondaryto LAMN, consistent with stage pM1a. The nodule in the peritoneal implant #4 shows tumor with diffuse expression for cytokeratin AE1/AE3and Chromogranin supporting the above diagnosis of well- differentiated neuroendocrine tumor. The tumor shows rare cells with Ki67 expression with a proliferative index <1%, consistent with WHO grade 1. In addition one of the regional lymph nodes shows focus of metastatic neuroendocrine tumor. These findings would be consistent with pathology stage pN1/M1b. She has followed with Dr. Ortega at [facility]. She began octreotide LAR 09/09/22. This [...] associated with flushing. No CP, fever/chills, or edema.She does have intermittent neuropathy in her fingers [...] (HIPEC) N/A 05/22/2022 Laterality: N/A; Surgeon: Archie uHgo MD, PhD; Location: [facility] MAIN OR COLECTOMY PARTIAL OPEN Right 05/22/2022 Laterality: Right; Surgeon: Archie Hugo MD, PhD; Location: [facility] MAIN OR DEBULKING INTRA-ABDOMINAL/PELVIC/RETROPERITONEAL W/ OMENECTOMY & PELVIC PARA- AORTIC LYMPHADENECTOMY N/A 05/22/2022 Laterality: N/A; Surgeon: Archie Hugo MD, PhD; Location: [facility] MAIN OR COLECTOMY PARTIAL LAPAROSCOPIC N/A 04/21/2022 Laterality: N/A; Surgeon: Archie Hugo MD, PhD; Location: [facility] MAIN OR COLONOSCOPY DIAGNOSTIC 04/08/2022 APPENDECTOMY LAPAROSCOPIC 02/03/2022 [facility], [place], [place] Medications: Current Outpatient Medications Medication Sig [...] (Patient not taking: Reported on 01/06/2024) Pancrelipase, Zmy-Qust-Fwbu, (Creon) [id number] units Cap DR Particles Please take one [...] Resource Strain: Medium Risk (02/18/2022) Received from [facility] Overall Financial Resource Strain (CARDIA) Difficulty of Paying Living Expenses: Somewhat hard Food Insecurity: No Food Insecurity (07/07/2023) Received from [facility] Hunger Screening Within the past 12 months we worried whether our food would run out before we got money to buy more.: Never True Within the past 12 months the food we bought just didn't last and we didn't have money to get more.: Never True Transportation Needs: No Transportation Needs (02/18/2022) [facility] Lack of Transportation (Medical): No Lack of Transportation (Non-Medical): No Physical Activity: Insufficiently Active (02/18/2022) [facility] Exercise Vital Sign Days of Exercise per Week: 3 days Minutes of Exercise per Session: 40 min Stress: Stress Concern Present (02/18/2022) [facility] [place] [facility] [employer] [facility] - Occupational Stress Questionnaire Feeling of Stress : Very much Social Connections: Unknown (02/18/2022) [facility] Social Connection and Isolation Panel [NHANES] Frequency of Communication with Friends and Family: Twice a week Frequency of Social Gatherings with Friends and Family: Patient declined Attends Hoahaoism Services: Never Active Member of Clubs or [...] m (5' 1.02 ) Wt 71 kg (156lb 9.6 oz) SpO2 99% BMI 29.57 kg/m [...] well-differentiated neuroendocrine tumor, WHO grade 1 and low-gradeappendiceal mucinous neoplasm (LAMN) is noted (per outside [...] and Chromogranin supporting the above diagnosis of well- differentiated neuroendocrine tumor. The tumor shows rare cells [...] I formulated the medical decision making, as above.For today s visit, I reviewed the nursing flowchart, list of medications and pertinent laboratory and diagnostic tests. I agree with the above progress note and edited this note entirely and it reflects the details of my interview, exam, and medical decision making. Briefly, Ms Swift is a 28 y.o. female who underwent an appendectomy at [facility] 02/03/22.Pathology was consistent with both LAMN and well [...] shows tumor with diffuse expression for cytokeratin AE1/AE3and Chromogranin supporting the above diagnosis of well- differentiated neuroendocrine tumor. The tumor shows rare cells [...] to her satisfaction. Vinicius Gomes MD, PhD Registration Specialist Division of Medical Oncology Division of Gynecologic Oncology documented in this [facility] Instructions* Patient Instructions* Latesha Steen RN - 01/06/2024 3:00 PM EDT You will return to clinic: 1 year To see provider: Dr Gomes documented in this encounterOS[facility] History of Present illness Narrative* Kimberley Woodall LPN - 11/26/2023 9:30 AM EDT This nurse verified pts name and . * MAMTA Dee - 11/26/2023 9:30 AM EDT Subjective History of Present Illness: Chief Complaint Patient presents with New Patient Zainab Swift is a 28 y.o. female who presents to the [facility] Gastroenterology, Hepatology, and Nutrition Clinic [...] Depression, GERD (gastroesophageal reflux disease), and History ofcancer. Past Surgical History: Procedure Laterality Date SECTION 2023 HYPERTHERMIA BY INTRACAVITARY PROBE (HIPEC) N/A 05/22/2022 Laterality: N/A; Surgeon: Archie Hugo MD, PhD; Location: [facility] MAIN OR COLECTOMY PARTIAL OPEN Right 05/22/2022 Laterality: Right; Surgeon: Archie Hugo MD, PhD; Location: [facility] MAIN OR DEBULKING INTRA-ABDOMINAL/PELVIC/RETROPERITONEAL W/ OMENECTOMY & PELVIC PARA- AORTIC LYMPHADENECTOMY N/A 05/22/2022 Laterality: N/A; Surgeon: Archie Hugo MD, PhD; Location: [facility] MAIN OR COLECTOMY PARTIAL LAPAROSCOPIC N/A 04/21/2022 Laterality: N/A; Surgeon: Archie Hugo MD, PhD; Location: [facility] MAIN OR COLONOSCOPY DIAGNOSTIC 04/08/2022 APPENDECTOMY LAPAROSCOPIC 02/03/2022 [place] Current Outpatient Medications Medication Sig acetaminophen [...] as needed for Other (carcinoid syndrome). Pancrelipase, Fpf-Jyvp-Ddsv, (Creon) [id number] units Cap DR Particles Please take one cap with each meal, and one cap with each snack. Octreotide acetate (SandoSTATIN LAR [place]) 20 MG Kit injection Inject 20 mg intramuscularly every 28 days. (Patient not taking: Reported on 11/08/2023) pantoprazole [address] tablet DR Take 2 tablets by mouth daily. (Patient not taking: Reported on11/08/2023) Vit-DSS-Fe Cbn-FA ( AD PO) Take by [...] maternal aunt and another family member; Cancer inher cousin, maternal aunt, and another family member; [...] enzymes - ALPHA 1 ANTITRYPSIN; Future - [id number] PHENOTYPE; Future - HUNTER SCREEN IFA; Future [...] Future - TRANSIENT ELASTOGRAPHY documented in this [facility]05-10-2024 Instructions* Patient Instructions* MAMTA Dee - 11/26/2023 9:30 AM EDT Labs today to evaluate for causes of liver enzyme elevation Fibroscan ordered to evaluate your liver for fibrosis, steatosis Follow up in 3 months - video documented in this encounterTriHealth [facility]02-[facility] History of Present illness Narrative* Ron Ruano DO - 08/24/2023 10:10 AM EST Reason for Appointment: Patient ID: Zainab Swift [...] nursing note reviewed. Exam conducted with a gatekeeper present. Vitals: Estimated body mass index is [...] of: Ron Ruano DO documented in this encounterProgress West [id number] History of Present illness Narrative* Isatu Blunt, BREAD OVEN OPERATOR-RETAIL WIRELESS SALES REPRESENTATIVE - 12/10/2022 12:30 PM EDT Chief Complaint: Chief Complaint Patient presents with Follow-up HPI: Zainab Swift is a 27 y.o. 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 Her post-op course was uncomplicated and she wasdischarged home on 05/29/22. She developed watery diarrhea [...] (Patient not taking: Reported on 07/06/2022) Pancrelipase, Uey-Hims-Xklz, (Creon) [id number] units Cap DR Particles Take two caps [...] well-differentiated neuroendocrine tumor, WHO grade 1 and low-gradeappendiceal mucinous neoplasm (LAMN) is noted (per outside [...] and Chromogranin supporting the above diagnosis of well- differentiated neuroendocrine tumor. The tumor shows rare cells with Ki67 expression with a proliferative index <1%, consistent with WHO grade 1. In addition one of the regional lymph nodes shows focus of metastatic neuroendocrine tumor. These findings would be consistent with pathology stage pN1/M1b. Assessment: Zainab Swift is a 27 y.o. female who is s/p ex lap, resection of falciform ligament, omentectomy,right hemicolectomy, radical resection of peritoneal tumor implant, resection of small peritoneal nodules, and HPIEC with MMC. Pathology returned intraperitoneal acellular mucin secondary to LAMN and appendiceal NET, WHO grade1, KI <%, [address] and one peritoneal implant involving the NET. Plan: Patient seen and evaluated by myself, all relevant available imaging and labs reviewed with MAMTA Ahumada and Dr. Hugo, and the plan was developed collaboratively. 1. Follow up with medical oncology as scheduled. 2. CT scans and f/u with Dr. Hugo in 3 months. Will call with any questions, concerns, or change in clinical status. MAMTA Villagran * MAMTA Leal - 12/10/2022 12:30 PM EDT Chief Complaint: Chief Complaint Patient presents with Follow-up HPI: Zainab Swift is a 27 y.o. 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 Her post-op course was uncomplicated and she wasdischarged home on 05/29/22. She developed watery diarrhea [...] (Patient not taking: Reported on 07/06/2022) Pancrelipase, Qfy-Ufvg-Jyxk, (Creon) [id number] units Cap DR Particles Take two caps [...] well-differentiated neuroendocrine tumor, WHO grade 1 and low-gradeappendiceal mucinous neoplasm (LAMN) is noted (per outside [...] and Chromogranin supporting the above diagnosis of well- differentiated neuroendocrine tumor. The tumor shows rare cells [...] s/p ex lap, resection of falciform ligament, omentectomy,right hemicolectomy, radical resection of peritoneal tumor implant, resection of small peritoneal nodules, and HPIEC with MMC. Pathology returned intraperitoneal acellular mucin secondary to LAMN and appendiceal NET, WHO grade1, KI <%, [address] and one [...] interviewed and examined this patient with the BANDAGE MAKER/fellow/resident. I reviewed the history and exam detailed [...] months with repeat imaging. Archie Hugo MD/PhD entertainment director Division of Surgical Oncology Department of Surgery documented in this [facility]05-25-2023 Instructions* Patient Instructions* MAMTA Villagran - 12/10/2022 12:30 PM EDT documented in this encounterOSJoint Township District [facility]04-06-2023 History of Present illness Narrative* Grace Alexander MD - 10/22/2022 2:00 PM EDT I had the pleasure of seeing Zainab Swift in consultation 10/22/2022 at [facility] on10/22[facility]2022 for evaluation of Hx of grade 1 appendiceal neuroendocrine tumor and low grade appendiceal mucinous neoplasm (LAMN). Joint achy/flu like s/s, tachcardia, + HUNTER. Please evaluate and treat. Hunter positive. HISTORY OF PRESENT ILLNESS: Zainab Swift is a 27 y.o. 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 Going back to her pain: she reports [...] ulcers, vision changes. She endorses fatigue with biscuitware brusher but overall able to do everything on [...] Surgeon: Archie Hugo MD, PhD; Location: [facility] MAIN OR COLECTOMY PARTIAL OPEN Right 05/22/2022 Laterality: Right; Surgeon: Archie Hugo MD, PhD; Location: [facility] MAIN OR DEBULKING INTRA-ABDOMINAL/PELVIC/RETROPERITONEAL W/ OMENECTOMY & PELVIC PARA- AORTIC LYMPHADENECTOMY N/A 05/22/2022 Laterality: N/A; Surgeon: Archie Hugo MD, PhD; Location[facility] OR COLECTOMY PARTIAL LAPAROSCOPIC N/A 04/21/2022 Laterality: N/A; Surgeon: Archie Hugo MD, PhD; Location: [facility] MAIN OR COLONOSCOPY DIAGNOSTIC 04/08/2022 APPENDECTOMY LAPAROSCOPIC 02/03/2022 [place] Family History Problem Relation Age of [...] Reported on 07/06/2022) 30 tablet 0 Pancrelipase, Lig-Ljqs-Krmq, (Creon) [id number] units Cap DR Particles Take two caps [...] temperature 97.6 F (36.4 C), temperature source Oral,resp. rate 20, height 1.549 m (5' 1 [...] continuing to follow the patientregarding general care, pain management, screening studies, and preventative care appropriate for age and clinical status. Plan was reviewed and discussed with Rebekah Suero MD * Rebekah Suero MD - 10/22/2022 2:00 PM EDT I saw Zainab Swift with Dr. Alexander. I have performed my own history and exam. We developed the assessment and plan together. I agree with the history, review of systems, exam and assessment and plan as documented in Dr. Alexander note. 27 y.o. w/ hx appendical cancer s/p octreotide here for HUNTER+ with symptoms consistent with POTs andconcerned for fibromyalgia nad small fiber neuropathy and [...] connective tissue disease. Because her HUNTER titer is1:160 with dysautonomia , I do not hink [...] cardiology Rebekah Suero MD documented in this encounterTriHealth [facility]04-06-2023 Instructions* Patient Instructions* Rebekah Suero MD - 10/22/2022 2:00 PM [...] or before touching things that may be usedin your care. This may be in your [...] but hand washing must always be a partof any care. How to Wash Your Hands [...] Rub Alcohol hand rub, also called hand tv technician, can be used instead of soap and [...] they are dry, atleast 20-30 seconds. [facility]. This handout is for informational purposes only. Talk with your doctor or healthcare team if you have any questions about your care. For more health information call the [employer] for Health Information at [phone] or email: [email or web address]. documented in this encounterTriHealth McCull[facility]04-06-2023 History of Present illness Narrative* Donna Beltre - 10/22/2022 8:00 AM EDT Intravenous access obtained and remained for next appointment in cardioology at [facility]. 22 gauge IVin left ac. Dressing intact and/or coban used to secure access. Patient instructed to report directly to next appointment. documented in this encounterTriHealth McCull[facility]03-22-2023 NoteAcute Coronary Syndrome (ACS): Initial Evaluation and Management: [email or web address] [facility]03-22-2023 History of Present illness Narrative* MAMTA Travis - 10/07/2022 11:30 AM EDT Images from the original note were not included. HISTORY OF PRESENT ILLNESS: Zainab Swift is a 27 y.o. 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 Ki67 is <3%. Immunostain for CD31 and D2-40 were also used for evaluation 03/19/2022 initiate visit [facility] Dr. Hugo 03/31/2022 CT chest: a small subpleural nodule in the left lower lobe, favored to represent a benignintrapulmonary lymph node; otherwise, unrevealing CT a/p w/c [...] calretinin highlight histiocytes and mesothelium respectively. Ki67 showsscattered positive cells, consistent with inflammatory and reactive [...] in the RLQ, pelvis and in the distalsmall bowel mesentery. PCI was graded at 6. [...] well-differentiated neuroendocrine tumor, WHO grade 1 and low-gradeappendiceal mucinous neoplasm (LAMN) is noted (per outside [...] and Chromogranin supporting the above diagnosis of well- differentiated neuroendocrine tumor. The tumor shows rare cells [...] flu like symptoms. No fever, achy muscle/bone, swollenlymph nodes. No congestion or cough. Went to [...] improved one week after SSA, down to 1- 2t/d solid BM. Denieshematemesis, melena or hematochezia The patient denies wheezing. [...] able to do housework. 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 Eating ok. Weight [...] Reported on 07/06/2022) 30 tablet 0 Pancrelipase, Zhk-Uyej-Upit, (Creon) [id number] units Cap DR Particles Take two caps [...] PROBE (HIPEC) N/A 05/22/2022 Laterality: N/A; Surgeon: Arcihe Hugo MD, PhD; [facility] COLECTOMY PARTIAL OPEN Right 05/22/2022 Laterality: Right; Surgeon: Archie Hugo MD, PhD; Location: [facility] MAIN OR DEBULKING INTRA-ABDOMINAL/PELVIC/RETROPERITONEAL W/ OMENECTOMY & PELVIC PARA- AORTIC LYMPHADENECTOMY N/A 05/22/2022 Laterality: N/A; Surgeon: Archie Hugo MD, PhD; Location: [facility] MAIN OR COLECTOMY PARTIAL LAPAROSCOPIC N/A 04/21/2022 Laterality: N/A; Surgeon: Archie Hugo MD, PhD; Location: [facility] MAIN OR COLONOSCOPY DIAGNOSTIC 04/08/2022 APPENDECTOMY LAPAROSCOPIC 02/03/2022 [place] Past medical, surgical, family, and social [...] Normoactive bowel sounds present. No palpable masses. Wellhealed vertical surgical scar Extremities: Warm, well perfused. [...] (LAMN): S/p radical resection of peritoneal tumor implants,resection of small peritoneal nodules, and administration of [...] concerns, or any new or worsening symptoms. Christopher Moralez APRN-RETAIL WIRELESS SALES REPRESENTATIVE Endocrine Tumor Program [facility] and [facility] To discuss with Dr. Ortega documented in this [facility]03-22-2023 Instructions* Patient Instructions* Johana Lutz RN - 10/07/2022 11:30 AM [...] script to Zainab Thank you for choosing [facility] for your cancer care. FMLA/Disability forms: Please allow up to 2 weeks for the forms to be returned to you +++ should you need any FMLA, Short term disability or terminal gauger supervisor disability forms filled out pleasefax them to (f) [phone] ++++ Refill requests: Please allow 24-48 hours for a response My chart message response: PLEASE DO NOT SEND IN URGENT/EMERGENT MESSAGES VIA MY CHART. Please allow up to 24-48 hours for a response via my chart. Should you have questions or concerns, please call [phone] documented in this encounterTriHealth [facility]ull[facility]12-21-2022 History of Present illness Narrative* MAMTA Travis - 07/08/2022 8:00 AM EST Images from the original note were not included. HISTORY OF PRESENT ILLNESS: Zainab Swift is a 27 y.o. 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 Ki67 is <3%. Immunostain for CD31 and D2-40 were also used for evaluation 03/19/2022 initiate visit with [facility] surgical team Dr. Hugo 03/31/2022 CT chest: a small subpleural nodule in the left lower lobe, favored to represent a benignintrapulmonary lymph node; otherwise, unrevealing CT a/p w/c [...] calretinin highlight histiocytes and mesothelium respectively. Ki67 showsscattered positive cells, consistent with inflammatory and reactive [...] in the RLQ, pelvis and in the distalsmall bowel mesentery. PCI was graded at 6. [...] well-differentiated neuroendocrine tumor, WHO grade 1 and low-gradeappendiceal mucinous neoplasm (LAMN) is noted (per outside [...] and Chromogranin supporting the above diagnosis of well- differentiated neuroendocrine tumor. The tumor shows rare cells [...] the appendix with 1 peritoneal implant referred byDr. Hugo Most recent surgery 05/22/22--recovering well but [...] quickly and requires nap. 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 Better appetite with [...] vancomycin and flared up so she had 2ndround vancomycin 5d after 1st round. Denies steatorrhea, hematemesis, melena Hematochezia resolved. +gasy/bloating. ECOG PS: 1 BP 121/77 (BP Location: Left arm, BP Position: Sitting) Pulse 73 Temp 98 F (36.7 C) (Oral) Resp 16 Ht 1.575 m (5' 2 ) Wt 71.3 kg (157 lb 1.6 oz) SpO2 98% BMI 28.73 kg/m Smoking StatusNever Wt Readings from Last 3 Encounters: 07/08/22 [...] PhD; Location: [facility] OR DEBULKING INTRA-ABDOMINAL/PELVIC/RETROPERITONEAL W/ OMENECTOMY & PELVIC PARA- AORTIC LYMPHADENECTOMY N/A 05/22/2022 Laterality: N/A; Surgeon: Archie Hugo MD, PhD; Location: [facility] MAIN OR COLECTOMY PARTIAL LAPAROSCOPIC N/A 04/21/2022 Laterality: N/A; Surgeon: Archie Hugo MD, PhD; Location: [facility] MAIN OR COLONOSCOPY DIAGNOSTIC 04/08/2022 APPENDECTOMY LAPAROSCOPIC 02/03/2022 [place], [place] Social History Socioeconomic History Marital status: [...] TSH, TSHULTRASEN, THYROGLOBULI, CALCITONIN, CEA, CORTISOL, ACTH, ALDOSTERPLA,PANCREASTATI, PANCPOLYP, GASTRIN, GLUCAGON, CPEPTIDE, INSULNGRFAC1, NEUROTENSIN, CHROMOGRANA, 5HIAARANDO IMPRESSION & PLAN: Dr. Ortega has seen and evaluated this patient. Please see attached addendum by Dr. Ortega for impression and recommendations. MAMTA Travis Neuroendocrine Tumor Program [facility] * Andreas Ortega MD, MPH - 07/08/2022 8:00 AM EST Addendum by Dr. Ortega: IAttending Addendum:I saw and evaluated the patient with Christopher Moralez CNP. I provided a substantive portion [...] tumor and low grade appendiceal mucinous neoplasm (LAMN)both of which were diagnosis during appendectomy that was performed when she presented in 01/2022 with acute appendicitis. Initial symptoms related to her diagnosis began in the year ~2016 when she developed intermittent dull and occaisonally sharp pain in the right lower abdomen. CT A/P with contrast on 02/03/22 revealedconcerned for acute appenditis and a 2.9 cm L ovarian cyst. She is s/p laparoscopic appendectomy on02/03/22 which revealed a 3.5 cm low grade appendiceal mucinous neoplasm at the distal end with surface disruption, penetrating through the appendiceal wall and present at the serosal surface. The 2.2cm grade 1 (Ki 67<3%) well differentiated NET was located at the proximal half, invading into subserosa and mesoappendiceal adipose tissue, with focal lymphovascular invasion and perineural invasion. The resection margin was focally positive for well differentiated NET, but negative for low grade mucinous neoplasm. She was seen by Dr. Archie Hugo ([facility] surgon) in 03/[address] chest revealed a small subpleural nodule in the left lower lobe, favored to represent a benign intrapulmonary lymph node; otherwise, unrevealing. CT a/p w/c was unrevealing. She underwent a diagnostic lap on 04/21/22 and was noted to have apool of mucin in the pelvis intraop s/p [...] with foci of acellular mucin and reactive m esothelial proliferation, terminal ileum mesentery with foci of acellular mucin with associated reactive mesothelial proliferation, cecum without NET or LAMN, regional LN positive for metastaticNET. LMAN- stage pM1a. NET stage: pN1/M1b. Patient [...] min-1 hr x for a few years, thathas worsened since 05/2022. She reports associated palpitations and light-headedness since flushing. She reports that she had come off her medication for mood disorder recently. Reports low energy and fatigue. ECOG PS 1. 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 1. Metastatic, well differentiated, grade 1, appendicular [...] to poorly differentiated neuroendocrine carcinomas. We discussed aboutthe grades of neuroendocrine tumors based on Ki [...] bones as common sites of metastasis.We discussed thatwell differentiated neuroendocrine tumor tends to be generally [...] placebo groups was 14.3 and 6 months (p=[id number]), respectively. The CLARINET study, [which enroll ed patients with well-differentiated or moderately differentiated, nonfunctioning, [...] disorder/anxiety is playing in her palpitations/flushing and Iadvised she follow up with psychiatry as well if resumption of her meds is needed. - RTC after [place] DOTATATE PET and triple phase CT A/P 2. LAMN: Discussed with Dr. Vinicius Gomes/[facility] who recommended active surveillance. No role for adjuvant systemic therapy. Patient will continue to follow with Dr. Archie Hugo. 3. Hx of NET in family: referral to genetics 4. Transaminitis: discontinue hepatotoxins/acetaminophen. Repeat LFTs at RTC. documented in this encounterOSU [facility]12-21-2022 Instructions* Patient Instructions* Yina Amaya RN - 07/08/2022 8:00 AM [...] stopping Tylenol Cancel pathology-done documented in this encounterOSU [facility]11-22-2022 History of Present illness Narrative* Raina Gomes, BREAD OVEN OPERATOR-RETAIL WIRELESS SALES REPRESENTATIVE - 06/09/2022 1:15 PM EST Chief Complaint: Chief Complaint Patient presents with Follow-up HPI: Zainab Swift is a 27 y.o. 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 Her post-op course was uncomplicated and she wasdischarged home on 05/29/22. She developed watery diarrhea and tested positive for c.diff on 06/02. Ms. Swift is here with her for her appointment today. She denies any fevers/chills. She is eating a regular diet, appetite is low, small amounts throughout the day, denies nausea/vomiting. She continues to have diarrhea- watery. She reports the frequency has decreased from 10-12 times perday to 2-3 times per day. She is having mild incisional pain. She is taking tylenol every six hoursand oxycodone 1-2 times per day. She no [...] active, non-tender Incision: midline abdominal incision with ikke intact- healing well, no drainage, no erythema, [...] well-differentiated neuroendocrine tumor, WHO grade 1 and low-gradeappendiceal mucinous neoplasm (LAMN) is noted (per outside [...] and Chromogranin supporting the above diagnosis of well- differentiated neuroendocrine tumor. The tumor shows rare cells with Ki67 expression with a proliferative index <1%, consistent with WHO grade 1. In addition one of the regional lymph nodes shows focus of metastatic neuroendocrine tumor. These findings would be consistent with pathology stage pN1/M1b. Assessment: Zainab Swift is a 27 y.o. female who is s/p ex lap, resection of falciform ligament, omentectomy,right hemicolectomy, radical resection of peritoneal tumor implant, resection of small peritoneal nodules, and HPIEC with MMC. Pathology returned intraperitoneal acellular mucin secondary to LAMN and appendiceal NET, WHO grade1, KI <%, [address] and one peritoneal implant involving the NET. She is doing very well after surgery. Encouraged to continue to work on her diet, including supplements and hydration. Encouraged to increase activity as tolerated, no heavy lifting >15 pounds for6 weeks after surgery date. Discussed completing PO [...] clinical status. MAMTA Carrion documented in this encounterU [facility]11-22-2022 Instructions* Patient Instructions* Veronique Calvin RN - 06/09/2022 1:15 PM EST Tele health visit with Raina Gomes CNP in 4 weeks on a Wednesday. Referral placed to neuroendocrine oncology. Return in [address] Hugo with scans same day. documented in this encounterOSJoint [facility] District [facility]11-11-2022 Note* Nursing Notes - Tania Louis RN - 05/29/2022 11:44 AM EST Patient and spouse given all discharge instructions [...] via wheelchair with all belongings at 1147. [facility]11-11-[facility] Miscellaneous Notes* Nursing Notes - Tania Louis RN - 05/29/2022 11:44 AM EST Patient and spouse given all discharge instructions [...] via wheelchair with all belongings at 1147. * Nursing Notes - Pinky Be RN - 05/28/2022 10:21 AM EST 05/28/22 1018 Referral Information Arrived From home [...] omentectomy, and HIPEC with Mitomycin C on 05/22/22Yifan Otero Inpatient PCRM Discharge Note Patient discussed in am medical rounds for possible weekend discharge to home. PCRM met with the patient/spouse to discuss final discharge plan. Services for Discharge Home without patient needs. Consults with Final Discharge Recommendations N/A Lines/Tubes/Drains/Wounds/Supplies Abdominal incision with kike Medications No barriers [...] and assistance is needed, please page the manager retention PCRM at [phone]. * Plan of Care - Yadira Grier RN - 05/27/2022 5:44 AM EST Patient did well overnight. Patient pain mostly being controlled with epidural, but scheduled medications controlling her mild to moderate breakthrough pain. Patient with steady gait and only needig needing stand-by assistance. Patient now with bowel function and feeling hungry. Patient hopefully to have diet started today. Patient was able to be up in walking with stand-by assistance from multiple times yesterday. * Nursing Notes - Louisa Tipton RN - 05/25/2022 9:24 PM EST 2123: Gabriella paged: Rm [phone], Kryling: FYRoxana pt states that she can't tolerate taking the olanzapine disintegrating tablet because of the NG. Thanks [phone] * Plan of Care - Jevon Branham RN - 05/22/2022 6:54 PM EDT Q1 safety rounds completed. Patient pain controlled with PRN medications. NPO with meds. Emesis x1.Family at bedside. Problem: Patient Care Overview Goal: [...] outcomes by discharge/transition of care. Outcome: Ongoing * Certification - Nette Roper PA-C - 05/22/2022 6:13 PM EDT I certify that this patient requires inpatient services at this time. I anticipate the expected length of stay will include at least two midnights. Inpatient services are due to the following medicalconcerns appendiceal NET. Plans for post hospitalization care will be discharge to home. * Nursing Notes - Pinky Be RN - 05/22/2022 4:14 PM EDT 05/22/22 1608 Referral Information Arrived From home or self-care;operating room Readmission Information Was patient readmitted within 30 Days? No Information Source Information Source patient Information Source Name Zainab Swift-in person Information Source Number Demographics reviewed Outpatient Providers Outpatient Providers Updated In IHIS Yes Contact Information Train Operations Manager/SW Added to Care Team Yes This Fashion Artist is Primary Train Operations Manager/SW Yes (Antonio Jiang RN [facility] [phone]) Train Operations Manager Name Pinky Barcenas RN [facility] Train Operations Manager's Social Work Contact Name Bailey Magallanes CASING RUNNING MACHINE TENDER, DOCK PUMPER Depot Manager's Living Environment Lives With spouse Living Arrangements [...] Education And Care For Discharge? Sybil Swift [phone] Can Support Person Meet The Care Needs Of The Patient? 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 Employment/Financial Concerns no Source Of Income salary/wages Financial Concerns none Insurance Medical Insurance Verified Yes Prescription Coverage Yes Pharmacy updated in IS Yes Initial Discharge Planning Home Care Services (POCKETBOOK MAKER) No Home Therapies (POCKETBOOK MAKER) None DME (POCKETBOOK MAKER) None Medical Supplies (POCKETBOOK MAKER) None Patient Goal for Discharge Return home with assistance from family and friends Anticipated discharge disposition Home Anticipated Services at Discharge Outpatient follow up Anticipated Changes Related to Illness none Current Discharge Risk high risk diagnoses (i.e., CHF, Stroke, DM, chronic pain, abdominal pain, nausea and vomiting) Transportation Available car Home Care Services (POCKETBOOK MAKER) Additional Home Care Services (POCKETBOOK MAKER) no Assessment/Concerns to be Addressed Concerns To Be Addressed denies needs/concerns at this time Zainab Swift is a 27 y.o. yr old female, who is now POD#0 s/p HYPERTHERMIA BY INTRACAVITARY PROBE(HIPEC) (N/A) COLECTOMY PARTIAL OPEN (Right), DEBULKING INTRA-ABDOMINAL/PELVIC/RETROPERITONEAL W/ OMENECTOMY & PELVIC PARA-AORTIC LYMPHADENECTOMY (N/A). PCR Initial Assessment Met with Zainab to complete the initial assessment. Explained role and function of PCRM in multidisciplinary team. Contact number provided for questions. Demographic information reviewed with patientand confirmed as correct. Reason for Admission: planned surgical procedure Estimated length of stay: as medically indicated Advanced directives Patient does not have Advanced Directives on File Lines/Drains/Tubes Abdominal incision with dressing x 2 Praneeth drain x 1-under distal dressing NG-low wall suction Jeronimo-straight drain Epidural-pain control Initial PCRM Discharge Planning Home with spouse Final plan will be determined closer to discharge, pending therapy and medical team recommendations. Patient/family verbalized understanding and agreement with the plan of care. Patient/family have no questions at this time. PCRM will continue to follow patient with multidisciplinary team for ongoing assessment of needs and for discharge planning. Medical team updated. * Nursing Notes - Jesus Jenkins RN - 05/22/2022 3:13 PM EDT 1512: Report called to Jevon EMERY on 12 [facility]. All questions answered. 1514: Patient discharged from [facility] PACU per protocol. Patient transported via gurney with side rails up x2 with HOB>30 degrees to room 1204 [facility] by Natalia EMERY and Dang LISA. Family called to patient's bedside. * Nursing Notes - Jesus Jenkins RN - 05/22/2022 2:27 PM EDT 1310: Patient arrives in [facility] PACU from OR via gurney with side rails up x2 with HOB >30 degrees, accompanied by Anesthesiologist: Vinicius Gupta DO; Chayo Benson MD Director Of Property Management: VIJAYA Gamboa; VIJAYA Lopez Railway Patrol Officer Assisting: Richard Bradshaw MD Cash Applications Analyst: Wali Art. Patient placed on monitors, VSS. Report received from anesthesia. Patient assessed, see assessment. 1427: PACU labs and abdominal xray for NG placement cleared by Miguel Betancourt at this time. 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 JR drain placed in pelvis. 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 19 Fr drain in the pelvis coming out LLQ SURGEON Surgeon(s) and Role: * Archie Hugo MD, PhD - Primary ANESTHESIOLOGIST Anesthesiologist: Vinicius Gupta DO; Chayo Benson MD Director Of Property Management: VIJAYA Gamboa; VIJAYA Lopez Railway Patrol Officer Assisting: Richard Bradshaw MD Cash Applications Analyst: Wali Art SURGICAL STAFF Bill Adjuster: Piedad Maki RN; Rima Medel RN Relief Bill Adjuster: Suri Stockton RN Relief Scrub: Ghanshyam Townsend [...] Hong MD May 22, 2022 1:04 PM * Op Note - Archie Hugo MD, PhD - 05/22/2022 1:04 PM EDT SURGEONS: Archie Hugo MD, PhD TOWEL STRETCHER SURGEON: Rodolfo Arnold MD PROCEDURE: - Exploratory [...] timeout was performed to confirm correct patient, positioning,procedure, antibiotics, and anticipated operative time. SCDs were [...] second timeout per standard procedure at the [facility]. We made a midline incision using a 10 blade.. The incision was carried down to the fascia. The fascia was excised and the peritoneum was entered sharply. We extended the incision inferiorly and superiorly. We then resected the falciform ligament. Examination of the abdominal cavity revealed mucinous implants in the RLQ, pelvis and in the distalsmall bowel mesentery. PCI was graded at 6. [...] sarmiento stapler device. Next, we began the ukdnpy-qb-vuamhgr dissection to mobilize the colonic mesentery. We [...] filed. We then proceeded with creating a glna-pz-gpkh functional end-to-end anastomosis between the distalileum and proximal transverse colon using the endo-KARRIE [...] cytoreduction and decided to move forth with hyperthermicintraperitoneal chemoperfusion. The inflow and outflow catheters were [...] time 0 and 10 mg delivered at time60 min) for total of 100 min. Following [...] participated for the entirety of the case. * Nursing Notes - Eli Hatch RN - 05/22/2022 6:43 AM EDT WOC/ET Nursing Note: Patient seen for pre-op [...] Last Date Seen 05/22/22 documented in this [facility]11-11-2022 Hospital course Narrative* Louisa Cerrato MD - 05/29/2022 9:31 AM EST Discharge Summary Name: Zainab Swift Age: 27 [...] on 05/22/22. POD 1 05/23-continue NG and jeronimo POD 2 05/24-Received 1L bolus and 500mL of albumen for hypotension and tachycardia overnight. Removefoley. POD 3 05/25- continue NG for decompression POD 4 05/26-remove NG POD 5 05/27- advance to full liquid diet POD 6 05/28-Remove JR drain today and advance to regular diet. Pull epidural POD 7 05/29- On day of discharge, patient is hemodynamically stable, tolerating a regular diet, andpain is well controlled on oral pain medications. [...] of Surgical Oncology Arrive at: Arrive to [facility] Floor Registration [phone] [facility]* Nursing Notes - Pinky Be RN - 05/28/2022 10:21 AM EST 05/28/22 1018 Referral Information Arrived From home [...] needs. Consults with Final Discharge Recommendations N/A Lines/Tubes/Drains/Wounds/Supplies Abdominal incision with kike Medications No barriers [...] and assistance is needed, please page the manager retention PCRM at [phone]. [facility] History of Present illness Narrative* Elroy Powell MD - 05/28/2022 9:10 AM EST Epidural pulled at 9:11 AM without complications, tip intact. Site skin clean, non-erythematous, nobleeding. Site cleaned with alcohol wipe and covered with band-aid. Continue current pain medications. DVT prophylaxis: Heparin: Resume 2 hours after epidural removal Lovenox: Resume 4 hours after epidural removal Acute pain will sign off at this time. Thank you for allowing the Acute Pain Service to participate in the care of Zainab Swift. Please page [phone] or call [phone] with any questions or concerns. Elroy Powell MD Acute Pain Service Senior Resident @ [phone] * Ramonita Betancourt APRN-RETAIL WIRELESS SALES REPRESENTATIVE - 05/28/2022 7:50 AM EST Subjective: Passing gas and having regular BMs. [...] appropriately tender. Midline incision sealed with kike c/d/iand without edema, erythema, exudate, or ecchymosis. Inferior portion of incision with praneeth drain and dressing c/d/i. JR with serosanguinous [...] Oanh Betancourt APRN-TASH [facility] surgery G3 service [id number] * Yann Burr MD - 05/27/2022 8:39 AM EST Anesthesia Acute Pain Progress Note Zainab Swift is a 27 y.o. female who is 5 Days Post-Op from Procedure(s) (LRB): HYPERTHERMIA BY INTRACAVITARY PROBE (HIPEC) (N/A) COLECTOMY PARTIAL OPEN (Right) DEBULKING INTRA-ABDOMINAL/PELVIC/RETROPERITONEAL W/ OMENECTOMY & PELVIC PARA- AORTIC LYMPHADENECTOMY (N/A). She has an epidural in place for management of her acute post-operative pain. Pain assessment: Pain at rest: 2/10 Pain with activity: 5/10 PCEA helps: yes Side effects: none Pt has jeronimo: yes Pt has chest tube: no Epidural [...] acute pain service at [phone] or call [phone] with any questions or concerns. Yann Burr MD PGY-1 Anesthesiology Acute Pain Service Attending Addendum I personally examined and evaluated the patient. I reviewed the case and medical record with the resident. Based on the ROS, History, and Exam, I agree with the medical decision making. Osmin Urban M.D. * Kika Colón, BREAD OVEN OPERATOR-RETAIL WIRELESS SALES REPRESENTATIVE - 05/27/2022 7:00 AM EST Subjective: Passed gas yesterday and had 3 [...] appropriately tender. Midline incision sealed with kike c/d/iand without edema, erythema, exudate, or ecchymosis. Inferior portion of incision with praneeth drain and dressing c/d/i. JR with serosanguinous [...] regimen. Plan was discussed with MAMTA Wisdom [facility] surgery G3 service [id number] * ABBIE Gibson - 05/26/2022 11:13 AM EST Psychosocial Assessment Per chart review, patient is a is a 27 y.o. 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 PMH: anxiety, borderline personality disorder, depression, GERD SW met with patient to introduce self, explain social service assistant role during inpatient stay, and answerpatient questions. Patient was alert and oriented x4 and agreeable to SW visit. Information Source Information Source: patient , review of medical record, spouse Information Source Name: Arlette Torreannekang Information Source Number: see demographics Contact Information Train Operations Manager Name: Pinky Smith RN PCRM Train Operations Manager's Social Work Contact Name: Bailey WILLAMS DOCK PUMPER Depot Manager's Living Environment Lives With: spouse Living Arrangements: house (one story house wiith 3 Steps to enter) Provides Primary Care For: no one Primary Care Provided By: spouse/significant other, self Support System: Immediate family Able to Return to Prior Arrangements: yes Employment/Financial Employed?: Yes 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 Pt report she stoptaking her medications about a month ago due to life stressors and weight gain from medications. Ptand report at this time they want to focus ion her recover for this surgery first as she has been coping well with life stressors without her medications. Pt report if she feels he needs her m edications she can call her PCP to get the prescribe again. Advance Directives: Per chart review, patient does not have any advance directives on file, however, patient reports that they have already completed advance directives and states the document(s) areat home. SW reviewed that without completed document on file, per [place] Law, spouse, Sybil Swift, (ph: [phone]) would be their Legal NOK for decision [...] for more information. Health Insurance / Rx: [id number] [place] [address] [address] [facility] Anticipated Discharge Plan: Pt report she plans to return home with care and transportation provided by her . Medical Team Considerations: None SW Interventions/Recommendations: Service SW name and contact information placed on white board in patient's room to contact as needed. SW will continue to remain available to provide assistance and support as needed during inpatient stay. IMER Christina, DOCK PUMPER SONC and HPB Depot Manager Pager: [phone] For Evening (4:30pm-8am) and Weekend SW needs please call [phone] or page [phone] * Yann Burr MD - 05/26/2022 10:30 AM EST Anesthesia Acute Pain Progress Note Zainab Swift is a 27 y.o. female who is 4 Days Post-Op from Procedure(s) (LRB): HYPERTHERMIA BY INTRACAVITARY PROBE (HIPEC) (N/A) COLECTOMY PARTIAL OPEN (Right) DEBULKING INTRA-ABDOMINAL/PELVIC/RETROPERITONEAL W/ OMENECTOMY & PELVIC PARA- AORTIC LYMPHADENECTOMY (N/A). She has an epidural in place for management of her acute post-operative pain. Pain assessment: Pain at rest: 4/10 Pain with activity: 5/10 PCEA helps: yes Side effects: none Pt has jeronimo: yes Pt has chest tube: no Epidural [...] acute pain service at [phone] or call [phone] with any questions or concerns. Yann Burr MD PGY-1 Anesthesiology Associated attestation - Ilia Arceo MD - 05/26/2022 12:15 PM EST Acute Pain Service Attending Addendum: I personally examined and evaluated the patient. I reviewed the case and medical record with the resident. Based on the history and exam, I agree with the medical decision making. Ilia Arceo M.D. * Jennifer Perez - 05/26/2022 8:44 AM EST Subjective: No acute events overnight. Pain controlled [...] or ecchymosis. Inferior portion of incision with praneeth drain. JR with serosanguinous output. NG with bilious output. : jeronimo removed 05/24. Voiding appropriately. Assessment/Plan: Zainab Swift [...] dulcolax suppository tomorrow if no return of bowelfunction. 2. Post op pain- epidural managed by [...] evaluated by the attending physician. Jennifer Perez * MAMTA Kirk - 05/26/2022 6:59 AM EST Subjective: Nausea overnight. Pain controlled. Feels bloated. [...] appropriately tender. Midline incision sealed with kike c/d/iand without edema, erythema, exudate, or ecchymosis. Inferior portion of incision with praneeth drain and dressing c/d/i. JR with serosanguinous [...] Plan was discussed with Dr. Oanh Colón, BREAD OVEN OPERATOR-RETAIL WIRELESS SALES REPRESENTATIVE B surgery G3 service [id number] * Yann Burr MD - 05/25/2022 9:53 AM EST Anesthesia Acute Pain Progress Note Zainab Swift is a 27 y.o. female who is 3 Days Post-Op from Procedure(s) (LRB): HYPERTHERMIA BY INTRACAVITARY PROBE (HIPEC) (N/A) COLECTOMY PARTIAL OPEN (Right) DEBULKING INTRA-ABDOMINAL/PELVIC/RETROPERITONEAL W/ OMENECTOMY & PELVIC PARA- AORTIC LYMPHADENECTOMY (N/A). She has an epidural in place for management of her acute post-operative pain. Pain assessment: Pain at rest: 2/10 Pain with activity: 5/10 PCEA helps: yes Side effects: none Pt has jeronimo: yes Pt has chest tube: no Epidural [...] regimen Please page acute pain service at [phone] or call [phone] with any questions or concerns. Yann Burr MD PGY-1 Anesthesiology Acute Pain Service Attending Addendum I personally examined and evaluated the patient. I reviewed the case and medical record with the resident. Based on the ROS, History, and Exam, I agree with the medical decision making. Osmin Urban M.D. * Jennifer Perez - 05/25/2022 7:58 AM EST Subjective: No acute events overnight. Pain controlled [...] or ecchymosis. Inferior portion of incision with praneeth drain. JR wiwth serosanguinous output. NG with bilious output. : jeronimo removed 05/24. Voiding appropriately. Assessment/Plan: Zainab Swift [...] dulcolax suppository tomorrow if no return of bowelfunction. 2. Post op pain- epidural managed by [...] evaluated by the attending physician. Jennifer Perez * MAMTA Kirk - 05/25/2022 7:32 AM EST Attending Physician Note I interviewed and examined this patient with the BANDAGE MAKER/fellow/resident. I reviewed the history and exam detailed in the note and have edited it as necessary. I agree with the medical decision making unless otherwise noted below. The patient is doing well. Her pain is well controlled. She is mildly distended on exam. We will continue NPO with NGT until return of bowel function. Archie Hugo MD/PhD entertainment director Division of Surgical Oncology Department of Surgery [...] appropriately tender. Midline incision sealed with kike c/d/iand without edema, erythema, exudate, or ecchymosis. Inferior portion of incision with praneeth drain and dressing c/d/i. JR with serosanguinous [...] Plan was discussed with Dr. Oanh Colón, BREAD OVEN OPERATOR-RETAIL WIRELESS SALES REPRESENTATIVE HP[facility] surgery G3 service [id number] * Estela Carey MD - 05/24/2022 9:41 AM EST HPB Surgery Note Subjective: Patient doing well [...] NGT today. NPO with ice chips -discontinue jeronimo today -remove praneeth drain from subcutaneous area -Continue PCEA, tylenol, and ibuprofen -decrease IVF to 75 ml/hr today -OOB and ambulate today -Replete electrolytes as needed. -Seen and examined with Dr. Kaylee Carey MD Surgical Oncology Fellow * Yann Burr MD - 05/24/2022 7:12 AM EST Anesthesia Acute Pain Progress Note Zainab Swift is a 27 y.o. female who is 2 Days Post-Op from Procedure(s) (LRB): HYPERTHERMIA BY INTRACAVITARY PROBE (HIPEC) (N/A) COLECTOMY PARTIAL OPEN (Right) DEBULKING INTRA-ABDOMINAL/PELVIC/RETROPERITONEAL W/ OMENECTOMY & PELVIC PARA- AORTIC LYMPHADENECTOMY (N/A). She has an epidural in place for management of her acute post-operative pain. Pain assessment: Pain at rest: 2/10 Pain with activity: 6/10 PCEA helps: yes Side effects: none Pt has jeronimo: yes Pt has chest tube: no Epidural [...] acute pain service at [phone] or call [phone] with any questions or concerns. Yann Burr MD PGY-1 Anesthesiology Acute Pain Service Attending Addendum: I personally examined and evaluated the patient. I reviewed the case and medical record with the resident. Based on the history and exam, I agree with the medical decision making. Lydia Lassiter M.D. * Estela Carey MD - 05/23/2022 9:32 AM EDT HPB Surgery Note Subjective: Patient doing well [...] serosanguinous drainage, but intact NGT in place, Jeronimo in place with clear urine Extrem: FROM Skin: no rashes Assessment: 27F POD1 from R hemicolectomy, omentectomy, and HIPEC for appendiceal NET. Plan: -Continue NGT today. NPO with ice chips -Continue jeronimo today -Continue PCEA, tylenol, and ibuprofen -OOB and ambulate today -Replete electrolytes as needed. -Seen and examined with Dr. Kaylee Carey MD Surgical Oncology Fellow * Yann Burr MD - 05/23/2022 8:25 AM EDT Anesthesia Acute Pain Progress Note Zainab Switf is a 27 y.o. female who is 1 Day Post-Op from Procedure(s) (LRB): HYPERTHERMIA BY INTRACAVITARY PROBE (HIPEC) (N/A) COLECTOMY PARTIAL OPEN (Right) DEBULKING INTRA-ABDOMINAL/PELVIC/RETROPERITONEAL W/ OMENECTOMY & PELVIC PARA- AORTIC LYMPHADENECTOMY (N/A). She has an epidural in place for management of her acute post-operative pain. Pain assessment: Pain at rest: 2/10 Pain with activity: 5/10 PCEA helps: yes Side effects: none Pt has jeronimo: yes Pt has chest tube: no Epidural [...] acute pain service at [phone] or call [phone] with any questions or concerns. Yann Burr MD PGY-1 Anesthesiology Acute Pain Service Attending Addendum I personally examined and evaluated the patient. I reviewed the case and medical record with the resident. Based on the ROS, History, and Exam, I agree with the medical decision making. Osmin Urban M.D. * Nette Roper PA-C - 05/22/2022 3:40 PM EDT Surgical Oncology Post-Op Check Note Zainab Swift is a 27 y.o. yr old female, who is now POD#0 s/p Procedure(s) (LRB): HYPERTHERMIA BY INTRACAVITARY PROBE (HIPEC) (N/A) COLECTOMY PARTIAL OPEN (Right) DEBULKING INTRA-ABDOMINAL/PELVIC/RETROPERITONEAL W/ OMENECTOMY & PELVIC PARA- AORTIC LYMPHADENECTOMY (N/A). There were no complications to the procedure, and tolerated it well. Arrived to the floor in stable condition. S: Patient is doing well. Pain well controlled. Voiding adequately via jeronimo. JR SS output. Island dressing with staining and praneeth drain underneath. O: Vitals: 05/22/22 1515 BP: Pulse: Resp: Temp: 99.2 F (37.3 C) Exam: GEN: NAD, laying comfortably in bed CV: RRR, HDS Pulm: no respiratory distress Abd: Soft, tender to palpation, JR drain with SS output, island dressing with staining, praneeth underneath Ext: No LE swelling/edema, distal pulses intact Neuro: No focal deficits : Jeronimo with yellow urine Assessment: 27 y.o. yr old female now POD#0 s/p Procedure(s) (LRB): HYPERTHERMIA BY INTRACAVITARY PROBE (HIPEC) (N/A) COLECTOMY PARTIAL OPEN (Right) DEBULKING INTRA-ABDOMINAL/PELVIC/RETROPERITONEAL W/ OMENECTOMY & PELVIC PARA- AORTIC LYMPHADENECTOMY (N/A). Currently stable on the floor. Plan: - DIET NPO with meds - Pain ctrl: Tylenol, Dilaudid, Ibuprofen, Oxycodone, Epidural - Lovenox - mIVF @ 125mL/hr - Maintain JR drain, wick drain, NGT, jeronimo - Patient advised to call with any concerns - Will continue to monitor * Richard Bradshaw MD - 05/22/2022 2:33 PM EDT Anesthesia Acute Pain Progress Note Zainab Swift is a 27 y.o. female who is Day of Surgery from Procedure(s) (LRB): HYPERTHERMIA BY INTRACAVITARY PROBE (HIPEC) (N/A) COLECTOMY PARTIAL OPEN (Right) DEBULKING INTRA-ABDOMINAL/PELVIC/RETROPERITONEAL W/ OMENECTOMY & PELVIC PARA- AORTIC LYMPHADENECTOMY (N/A). She has an epidural in place for management of her acute post-operative pain. Pain assessment: Pain: 3/10 well-controlled PCEA helps: yes Side effects: none Pt has jeronimo: yes Pt has chest tube: no Epidural [...] Pain well-managed. No level on left side, T8- T12 on right side. No interventions at this juncture given pain is well controlled. Has required 0 additional OMEs over the last 24 hours. Plan: - Continue current regimen Please page acute pain service at [phone] or call [phone] with any questions or concerns. Richard Bradshaw MD vice president of instruction [facility]* Plan of Care - Yadira Grier RN - 05/27/2022 5:44 AM EST Patient did well overnight. Patient pain mostly being controlled with epidural, but scheduled medications controlling her mild to moderate breakthrough pain. Patient with steady gait and only needig needing stand-by assistance. Patient now with bowel function and feeling hungry. Patient hopefully to have diet started today. Patient was able to be up in walking with stand-by assistance from multiple times yesterday. [facility]11-[facility] Consult note* Johana Coffman RN - 05/26/2022 8:36 PM EST Vascular Access Procedure Note for Ultrasound Guided PIV Placement Assessment Zainab Swift seen and evaluated for peripheral IV insertion using ultrasound guidance. ID band present, allergies verified and patient/nurse questioned of limb precautions. Skin integrity assessed,no evidence of condition that would prevent safe insertion of a peripheral IV with ultrasound. Allergies: No Known Allergies Insertion 1. Ultrasound guided PIV: Peripheral IV placed per aseptic technique under ultrasound guidance on 1attempt(s). []Obtained labs. Peripheral IV Line - Single Lumen 05/26/222026 forearm, anterior, right 1 3/4 in length;20 gauge (Active) 05/26/222026 Present On Admission : no Guiding Device: ultrasound Lumen 1: Location: forearm, anterior, right Device/Lot Number: [id number] catheter system Gauge/Length: 1 3/4 in length;20 gauge Unsuccessful Insertion Attempts: 1 Unsuccessful Attempt Location/Site: Pain Prevention/Patient Tolerance: distraction;tolerated well;appears comfortable Removal: Additional Comments: placed by Carla Mccurdy RN Lumen 2: Lumen 3: Peripheral IV Present on Admission: (Retired/Read Only) Location: (Retired/Read Only) Device: (Retired/Read Only) Gauge/Length: Punch Machine Operator/Lot Number: Unsuccessful Insertion Attempts: (Retired/Read Only) Unsuccessful [...] care of this patient. Vascular Access Team [id number] [facility]11-[facility] Consult note* Johana Coffman RN - 05/26/2022 8:36 PM EST Vascular Access Procedure Note for Ultrasound Guided PIV Placement Assessment Zainab Torrecurt seen and evaluated for peripheral IV insertion using ultrasound guidance. ID band present, allergies verified and patient/nurse questioned of limb precautions. Skin integrity assessed,no evidence of condition that would prevent safe insertion of a peripheral IV with ultrasound. Allergies: No Known Allergies Insertion 1. Ultrasound guided PIV: Peripheral IV placed per aseptic technique under ultrasound guidance on 1attempt(s). []Obtained labs. Peripheral IV Line - Single Lumen 05/26/222026 forearm, anterior, right 1 3/4 in length;20 gauge (Active) 05/26/222026 Present On Admission : no Guiding Device: ultrasound Lumen 1: Location: forearm, anterior, right Device/Lot Number: [id number] catheter system Gauge/Length: 1 3/4 in length;20 gauge Unsuccessful Insertion Attempts: 1 Unsuccessful Attempt Location/Site: Pain Prevention/Patient Tolerance: distraction;tolerated well;appears comfortable Removal: Additional Comments: placed by Carla Mccurdy RN Lumen 2: Lumen 3: Peripheral IV Present on Admission: (Retired/Read Only) Location: (Retired/Read Only) Device: (Retired/Read Only) Gauge/Length: Punch Machine Operator/Lot Number: Unsuccessful Insertion Attempts: (Retired/Read Only) Unsuccessful [...] care of this patient. Vascular Access Team [id number] documented in this encounterOS[facility]11-07-2022 Note* Nursing Notes - Louisa Tipton RN - 05/25/2022 9:24 PM EST 2124: [facility]: Rm 1201, Kryling: FYI pt states that she can't tolerate taking the olanzapine disintegrating tablet because of the NG. Thanks [id number] [facility]11-04-2022 Note* Plan of Care - Jevon Branham RN - 05/22/2022 6:54 PM EDT Q1 safety rounds completed. Patient pain controlled with PRN medications. NPO with meds. Emesis x1.Family at bedside. Problem: Patient Care Overview Goal: [...] outcomes by discharge/transition of care. Outcome: Ongoing [facility]11-04-2022 Note* Certification - Nette Roper PA-C - 05/22/2022 6:13 PM EDT I certify that this patient requires inpatient services at this time. I anticipate the expected length of stay will include at least two midnights. Inpatient services are due to the following medicalconcerns appendiceal NET. Plans for post hospitalization care will be discharge to home. [facility]11-04-2022 Note* Nursing Notes - Pinky Be RN - 05/22/2022 4:14 PM EDT 05/22/22 1608 Referral Information Arrived From home or self-care;operating room Readmission Information Was patient readmitted within 30 Days? No Information Source Information Source patient Information Source Name Zainab Swift-in person Information Source Number Demographics reviewed Outpatient Providers Outpatient Providers Updated In IHIS Yes Contact Information Train Operations Manager/SW Added to Care Team Yes This Fashion Artist is Primary Train Operations Manager/SW Yes (Antonio Jiang RN [facility] [phone]) Train Operations Manager Name Pinky Barcenas RN [facility] Train Operations Manager's Social Work Contact Name Bailey Magallanes CASING RUNNING MACHINE TENDER, DOCK PUMPER Depot Manager's Living Environment Lives With spouse Living Arrangements [...] Education And Care For Discharge? Sybil Swift [phone] Can Support Person Meet The Care Needs Of The Patient? 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 Employment/Financial Concerns no Source Of Income salary/wages Financial Concerns none Insurance Medical Insurance Verified Yes Prescription Coverage Yes Pharmacy updated in [facility] Yes Initial Discharge Planning Home Care Services (POCKETBOOK MAKER) No Home Therapies (POCKETBOOK MAKER) None DME (POCKETBOOK MAKER) None Medical Supplies (POCKETBOOK MAKER) None Patient Goal for Discharge Return home with assistance from family and friends Anticipated discharge disposition Home Anticipated Services at Discharge Outpatient follow up Anticipated Changes Related to Illness none Current Discharge Risk high risk diagnoses (i.e., CHF, Stroke, DM, chronic pain, abdominal pain, nausea and vomiting) Transportation Available car Home Care Services (POCKETBOOK MAKER) Additional Home Care Services (POCKETBOOK MAKER) no Assessment/Concerns to be Addressed Concerns To Be Addressed denies needs/concerns at this time Zainab Swift is a 27 y.o. yr old female, who is now POD#0 s/p HYPERTHERMIA BY INTRACAVITARY PROBE(HIPEC) (N/A) COLECTOMY PARTIAL OPEN (Right), DEBULKING INTRA-ABDOMINAL/PELVIC/RETROPERITONEAL W/ OMENECTOMY & PELVIC PARA-AORTIC LYMPHADENECTOMY (N/A). PCRM Initial Assessment Met with Zainab to complete the initial assessment. Explained role and function of PCRM in multidisciplinary team. Contact number provided for questions. Demographic information reviewed with patientand confirmed as correct. Reason for Admission: planned surgical procedure Estimated length of stay: as medically indicated Advanced directives Patient does not have Advanced Directives on File Lines/Drains/Tubes Abdominal incision with dressing x 2 [place] drain x 1-under distal dressing NG-low wall suction Jeronimo-straight drain Epidural-pain control Initial PCRM Discharge Planning Home with spouse Final plan will be determined closer to discharge, pending therapy and medical team recommendations. Patient/family verbalized understanding and agreement with the plan of care. Patient/family have no questions at this time. PCRM will continue to follow patient with multidisciplinary team for ongoing assessment of needs and for discharge planning. Medical team updated. [facility]11-04-2022 Note* Nursing Notes - Jesus Jenkins RN - 05/22/2022 3:13 PM EDT 1512: Report called to Jevon EMERY on 12 [facility]. All questions answered. 1514: Patient discharged from [facility] PACU per protocol. Patient transported via gurney with side rails up x2 with HOB>30 degrees to room 1204 [facility] by Natalia EMERY and Dang INSERTING OPERATOR. Family called to patient's bedside. [facility]11-04-2022 Note* Nursing Notes - Jesus Jenkins RN - 05/22/2022 2:27 PM EDT 1310: Patient arrives in [facility] PACU from OR via gurney with side rails up x2 with HOB >30 degrees, accompanied by Anesthesiologist: Vinicius Gupta DO; Chayo Benson MD Director Of Property Management: VIJAYA Gamboa; VIJAYA Lopez Railway Patrol Officer Assisting: Richard Bradshaw MD Cash Applications Analyst: Wali Art. Patient placed on monitors, VSS. Report received from anesthesia. Patient assessed, see assessment. 1427: PACU labs and abdominal xray for NG placement cleared by Miguel Betancourt at this time. 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 JR drain placed in pelvis. SURGEON Surgeon(s) and Role: * Archie Hugo MD, PhD - Primary ANESTHESIOLOGIST Anesthesiologist: Vinicius Gupta DO; Chayo Benson MD Director Of Property Management: VIJAYA Gamboa; VIJAYA Lopez Railway Patrol Officer Assisting: Richard Bradshaw MD Cash Applications Analyst: Wali Art SURGICAL STAFF Bill Adjuster: Piedad Maki RN; Rima Medel RN Relief Bill Adjuster: Suri Stockton RN Relief Scrub: Ghanshyam Townsend [...] Arnold MD May 22, 2022 1:06 PM [facility] Work Phone: 1(767) 216-934311-04-2022 Note* Brief Op Note - Narciso Hong MD - 05/22/2022 1:04 PM EDT Zainab Swift ([id number]) PRE OPERATIVE DIAGNOSIS 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 19 Fr drain in the pelvis coming out LLQ SURGEON Surgeon(s) and Role: * Archie Hugo MD, PhD - Primary ANESTHESIOLOGIST Anesthesiologist: Vinicius Gupta DO; Chayo Benson MD Director Of Property Management: VIJAYA Gamboa; VIJAYA Lopez Railway Patrol Officer Assisting: Richard Bradshaw MD Cash Applications Analyst: Wali Art SURGICAL STAFF Bill Adjuster: Piedad Maki RN; Rima Medel RN Relief Bill Adjuster: Suri Stockton RN Relief Scrub: Ghanshyam Townsend [...] Hong MD May 22, 2022 1:04 PM [facility] Work Phone: 1(981) 955-553211-04-2022 Note* Op Note - Archie Hugo MD, PhD - 05/22/2022 1:04 PM EDT SURGEONS: Archie Hugo MD, PhD TOWEL STRETCHER SURGEON: Rodolfo Arnold MD PROCEDURE: - Exploratory [...] timeout was performed to confirm correct patient, positioning,procedure, antibiotics, and anticipated operative time. SCDs were [...] second timeout per standard procedure at the [facility]. We made a midline incision using a 10 blade.. The incision was carried down to the fascia. The fascia was excised and the peritoneum was entered sharply. We extended the incision inferiorly and superiorly. We then resected the falciform ligament. Examination of the abdominal cavity revealed mucinous implants in the RLQ, pelvis and in the distalsmall bowel mesentery. PCI was graded at 6. [...] sarmiento stapler device. Next, we began the ndpuer-qb-bquqjel dissection to mobilize the colonic mesentery. We [...] filed. We then proceeded with creating a nfyq-xh-jrwa functional end-to-end anastomosis between the distalileum and proximal transverse colon using the endo-KARRIE [...] cytoreduction and decided to move forth with hyperthermicintraperitoneal chemoperfusion. The inflow and outflow catheters were [...] time 0 and 10 mg delivered at time60 min) for total of 100 min. Following [...] participated for the entirety of the case. [facility] Work Phone: 1(221) 862-401111-04-2022 Nurse Surgical operation note* Rima Medel RN - 05/22/2022 7:08 AM EDT 0815 Family notified of surgery start 1210 Family updated 5512 Handoff report sent to PACU charge nurse 1255 PACU given notice of arrival 1309 Patient extubated and transported to PACU with anesthesia at bedside and on oxygen inhalation Rima Medel RN [facility]11-04-2022 Nurse Note* Rima Medel RN - 05/22/2022 7:08 AM EDT 0815 Family notified of surgery start 1021, 1211 Family updated 1228 Handoff report sent to PACU charge nurse 1255 PACU given notice of arrival 1309 Patient extubated and transported to PACU with anesthesia at bedside and on oxygen inhalation Rima Medel RN documented in this encounter[facility]-2022 Note* Nursing Notes - Eli Hatch RN - 05/22/2022 6:43 AM EDT WOC/ET Nursing Note: Patient seen for pre-op [...] Frequency Sat Last Date Seen 05/22/22 [facility] History and physical note* Liza Cisneros PA-C - 05/22/2022 6:12 AM EDT Surgical Oncology Pre Procedure H&P Surgeon Archie Hugo MD, PhD 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 with h/o appendiceal neuroendocrine tumor whopresents today for CRS and HIPEC. She was [...] Surgeon: Archie Hugo MD, PhD; Location: [facility] MAIN OR COLONOSCOPY DIAGNOSTIC 04/08/2022 APPENDECTOMY LAPAROSCOPIC 02/03/2022 [place] Family History Family History Problem Relation [...] the day before surgery 05/21/2022 04/23/22 Elsie Gilman APRN-TASH FLUoxetine 40 MG capsule 40 mg, [...] hours as instructed. 05/21/2022 04/23/22 Elsie Mason APRN-RETAIL WIRELESS SALES REPRESENTATIVE Review of Systems Denies the following: Arrhythmias, [...] for surgery. Pt has no new complaints anddenies CP, SOB, fever or chills. Plan Plan was developed by Archie Hugo MD, PhD Pt to receive rocephin and flagyl as pre-operative antibiotics. Anticipate hospital admission afterprocedure today. We will proceed with surgery as surgical risks, benefits and consent were discussed by Archie Hugo MD, PhD when they saw the patient in clinic on 04/14/2022. Pre-operative work up is wnl. All questions addressed to the patient's satisfaction. 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 with h/o appendiceal neuroendocrine tumor whopresents today for CRS and HIPEC. She was [...] Surgeon: Archie Hugo MD, PhD; [facility] OR COLONOSCOPY DIAGNOSTIC 04/08/2022 APPENDECTOMY LAPAROSCOPIC 02/03/2022 [place], [place] Family History Family History Problem Relation [...] the day before surgery 05/21/2022 04/23/22 MAMTA Harrington FLUoxetine 40 MG capsule 40 mg, Oral, [...] for surgery. Pt has no new complaints anddenies CP, SOB, fever or chills. Plan Plan was developed by Archie Hugo MD, PhD Pt to receive rocephin and flagyl as pre-operative antibiotics. Anticipate hospital admission afterprocedure today. We will proceed with surgery as surgical risks, benefits and consent were discussed by Archie Hugo MD, PhD when they saw the patient in clinic on 04/14/2022. Pre-operative work up is wnl. All questions addressed to the patient's satisfaction. Liza Cisneros PA-C documented in this [facility] Hospital Discharge instructions* Discharge Instructions* Pinky Be RN - 05/21/2022 10:38 AM EDT Contacts: Archie Hugo MD Office Number: [phone] Option 1 During office hours, Wednesday through Wednesday, 8:00 AM to 4:30 PM, call the office if you have any questions or concerns. After hours, weekends and holidays call the office number and you will be transferred to the After Hours Nurse Line. Call 911 for Emergencies. Your case liner (PCRM) has arranged your appointments for follow [...] may take an over the counter pain relieversuch as ibuprofen (brand names: Advil or Motrin) OR extra strength acetaminophen (brand name: ExtraStrength Tylenol). Follow the dosing instructions as the [...] surgery, please take milk of magnesia. If youdo not have a bowel movement within 12 [...] pharmacist before using any other medicine, including xief-xkc-ptotvig medicines, vitamins, and herbal products. Avoid taking [...] and support, many resources are available. The [employer] Call to request information or check hours. The [facility] Jointly Health: or , www.GROUNDFLOOR [facility] Classes: [facility] for [facility], Integrative Care Monthly Classes The [employer] for [facility] Program offers a series of monthly classes about integrative care. Integrative care involves other care methods that may be used along with conventional cancer treatment. Learnabout the role of exercise, diet and nutrition, manual and movement herapies as part of a comprehensive cancer care program. Classes also provide a chance to share thoughts and concerns with other cancer survivors, their families and friends. For more information, contact [facility] TAKO [facility] at or visit our website at [email or web address] Resources in [facility] include the following: The [employer] [employer], [facility] Unit . The [facility] The Cancer Support [facility]: http://cancersupportoh[place].org/zyrunylm-ius-awcpxoye/virtual-community/ National Resources: [place] [employer] (ACS), www.cancer.org 2-874-VHZ-1178[place], [place]: 3-310-WZB-[place]. National Comprehensive Cancer [facility] (NCCN) 8-072-370-NCCN, www.nccn.org National Cancer [place] (NCI) 0-034-5-CANCER, www.nci.gov * Attachments The following attachments cannot be sent through Care Everywhere. * Lovenox or Heparin: Subcutaneous Injections ([facility]) ([place]oz[place]ican) documented in this encounterOS[facility]10-12-2022 NotePROCEDURE: XR HIP RT 2 3V WO PELVIS, XR TIB_FIB RT 2V, XR FEMUR RT HISTORY: Pain in right leg , chronic COMPARISON: None. FINDINGS: BONES:No fracture, acute abnormality, or significant arthropathy. SOFT TISSUES:No visible soft tissue swelling. EFFUSION:None visible. OTHER: Negative. IMPRESSION: 1. Normal appearance of the right hip, femur, and tibia-fibula. Electronically authenticated by: CAROLYN WALSH Date: 2022-04-29 16:59[facility]10-12-2022 NotePROCEDURE: XR HIP RT 2 3V WO PELVIS, XR TIB_FIB RT 2V, XR FEMUR RT HISTORY: Pain in right leg , chronic COMPARISON: None. FINDINGS: BONES:No fracture, acute abnormality, or significant arthropathy. SOFT TISSUES:No visible soft tissue swelling. EFFUSION:None visible. OTHER: Negative. IMPRESSION: 1. Normal appearance of the right hip, femur, and tibia-fibula. Electronically authenticated by: CAROLYN WALSH Date: 2022-04-29 16:59[facility]10-12-2022 NotePROCEDURE: XR HIP RT 2 3V WO PELVIS, XR TIB_FIB RT 2V, XR FEMUR RT HISTORY: Pain in right leg , chronic COMPARISON: None. FINDINGS: BONES:No fracture, acute abnormality, or significant arthropathy. SOFT TISSUES:No visible soft tissue swelling. EFFUSION:None visible. OTHER: Negative. IMPRESSION: 1. Normal appearance of the right hip, femur, and tibia-fibula. Electronically authenticated by: CAROLYN WALSH Date: 2022-04-29 16:59[facility]09-01-2022 History of Present illness Narrative* Leanne Joy MD - 03/19/2022 3:00 PM EDT Images from the original note were not included. Chief Complaint: Chief Complaint Patient presents with New Patient Clinical Care Team: Referring Provider: Rodney Olivas MD Primary Care Provider: Erin Whiteside History of Present Illness: Ms. Swift is a 26 y.o. female with a history of depression, anxiety, and borderline personality disorder. She underwent a laparoscopic appendectomy on 02/03/22 for acute appendicitis at [facility]. 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 She presents to [facility] GI Surgical Oncology clinic for surgical [...] History: Procedure Laterality Date APPENDECTOMY LAPAROSCOPIC 02/03/2022 [facility], [place], [place] No Known Allergies Current Outpatient Medications [...] numbness or tingling of the hands or feet,or forgetfulness. Endocrine: There is no history of [...] four extremities. Warm and dry, 2+ peripheral pulses,no edema Integumentary: Skin is warm and dry. [...] but not bedbound (Capable of only limited self- care, confined to bed or chair 50% or [...] with any further questions. Leanne Joy MD * Archie Hugo MD, PhD - 03/19/2022 3:00 PM EDT Images from the original note were not included. I had the pleasure of seeing Zainab Swift in our surgical oncology clinic at [facility], [facility] and [facility]. As you know, Ms. Swift is a pleasant 26 y.o. 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 The patient is presenting for an evaluation [...] in the cecum and what appears to beadjacent appendix. There is no evidence of metastatic [...] surgical therapy. She will be recommended right hem icolectomy to allow for full staging of her NET including the regional nodes. Prior to any further surgical recommendations, we will need repeat staging imaging including CT CAP. She will need colonoscopy prior to her operation to rule out any additional colonic pathology. If the CT is negative forany residual mucin, we will offer her right hemicolectomy. If the CT reveals additional mucin, she will be offered CRS+HIPEC including right hemicolectomy. I personally saw and evaluated the patient. I reviewed the MATT's note and agree with their findingsand plan as documented in their note. Thank you for allowing me to participate in the care of your patient. I will keep you informed of her progress. Please do not hesitate to call if I can be of any assistance in the future. Sincerely, Archie Hugo MD, PhD entertainment director Department of Surgery Division of Surgical Oncology [address] [place] [address] Office [phone] Fax [email or web address] documented in this encounterTri[facility] Instructions* Patient Instructions* Rhoda Lazo RN - 03/19/2022 3:00 PM EDT Pre-operative Information As a patient at the [facility], you may work with various departments and havehelp from many professionals. One of these is a surgical oncologist who works in the Division of Surgical Oncology. Surgical oncologists are surgeons who have completed advanced training to care for cancer patients. All of the surgical oncologists at the [facility] have completed specialized training and are board-certified. The surgeon who will be performing your surgery is Archie Hugo M.D., entertainment director. [address] [place] [address] Office phone: [phone] We are available to take calls Wednesday-Wednesday 8:00am-4:30pm. During non-business hours and holidays phone calls will be forwarded to a service covering our patients. Please communicate with our team through [facility] for non-urgent issues only. Office fax: [phone] Clinic Nurse Practitioner Raina Gomes Pony Roll Finisher Sandra Kennedy Post Adoption Coordinator Iris Giraldo OUR TEAM OF EXPERTS [facility] is associated with [facility] and is an academic medical center. Dr. Skip Le is an attending physician, the supervisor assembly of your care. Listed below are the members of his team: Surgical Oncology Fellow: a physician who completed residency and is obtaining further education. Resident(s): a physician who has finished exercise science internship and is receiving training in a specialized area (i.e. surgery) Printed Circuit Designer(s): a physician who has completed medical school and is in the 1st year of training Nurse Practitioner (BANDAGE MAKER): A registered nurse with a master's or doctoral degree who is licensed to practice; [facility], [facility], Suman Jeffries, [facility], Kika Colón, [facility], Monica Jackson, [facility] Patient Care Passenger Service Manager (PCRM): A registered nurse who coordinates [...] 8:00 a.m. to 4:30 p.m. [facility] is responsible for answering requests for copies of medical records from various requestors such as insurance companies, hospitals and patients. Please note it can take up to 2 weeks to complete your request. [phone] DISABILITY FORMS This category includes any form [...] a private room? All rooms at the [facility] are private. Do you have a social service assistant available? A social service assistant is assigned to our team. How can I help my family plan for my discharge? From the moment a patient is admitted, the PCRMs begin to plan for the patient s discharge. Plan toleave at 11am on the day of discharge. Discharge instructions will be given to the patient. The hospital nurse will discuss these with you. Does the [facility] precertify my surgery? Yes. The precertification department at [facility] will notify your insurance carrier. Who should I contact if I anticipate difficulty paying my bill? We want to make sure all patients have access to the quality healthcare services of [facility], and we are committed to working with you and your family to obtain appropriate financial assistance. You may contact the Office of Financial Counseling [phone] weekdays between 8am and 5pm to help determine whether you might qualify for an assistance program. Do I need to bring clothes from home to wear at the hospital? The [facility] will provide you with personal items. You may wish to bring a robe or slippers. Does the [facility] have a designated area for smoking? The [facility] does not permit smoking inside or outside the hospitals including parking areas and sidewalks. If you would like to quit, you can contact a tobacco post closing specialist at [phone] [facility] Tobacco QUIT LINE at [phone]. Where can I find information about visitation, [...] someone after business hours? The office number, [phone] or [phone], is connected to an answering service after 4:30pm each weekday and on weekends, available 08/02. What number should I call if I have billing questions? Please call [facility] s Central Business Office at [phone]. Please Note: In regards to detention pain control. You may need narcotic pain medication after your operation or procedure. This is most often for a few days and occasionally for 2 to 4 weeks. It's our standard practice to stop providing narcotic pain medication once 60 days have passed after operation or other procedure. If you have a need or expectation of long- term narcotic use, we require this to be [...] call by 4 p.m., please call the [facility] Ambulatory Surgery Unit at . [...] the hospital. Do not wear makeup, nail bulgarian or hair pins to the hospital. Please [...] a living will or durable power of traffic law attorney, please bring a copy of the documents with you. IF YOU USE CPAP BRING YOUR MACHINE WITH YOU TO THE HOSPITAL ALONG WITH THE PRESCRIPTION FOR CPAP PRESSURE LEVELS If you develop any illness, such as a cold, sore throat, cough, or fever, before your surgery, callthe [facility] Ambulatory Surgery Unit at and [...] pulp Popsicles Ice Soft drinks Gatorade (Lemon [place]uz[place]ie preferred) Clear broth or bouillon Jello Coffee [...] Polyethylene Glycol (Miralax) powder (LABELED STEP 2) intoa large 64-ounce bottle of sports drink like Gatorade or PowerAid that is not red, orange, or purple in color. Lemon-kake is preferred. You may need to pour [...] off shower. Apply 3 pumps of the Hibiclens(chlorhexidine) Foam wash (LABELED STEP 6) directly onto [...] Nutritional drink (LABELED STEP 9) on the wayto the hospital prior to your procedure. STEP 10 - Please bring this form with you the day of your procedure. The morning of your surgery: Do not eat or drink anything other than the Preoperative Nutrition drink supplied by your doctor ordoctor s office. If you are to take [...] visit) and the Ensure Pre-Surgery clear nutrition drink(see information below for directions on this drink [...] than 2 hours prior to surgery time. Youshould have nothing to eat or drink at all 2 hours prior to your surgery. What is Ensure Enlive? As you continue to recover from surgery, add Ensure Enlive to your diet. Ensure Enlive is the only advanced nutrition shake that has an All-in-One blend with 20 grams of protein, HMB, fiber, vitaminsand minerals. Ensure Enlive helps rebuild muscle for strength and energy during recovery from surgery. Ensure Enlive has been clinically shown to help significantly improve health outcomes. Patient who drank Ensure Enlive twice daily saw improvements in nutritional status, weight gain, and vitamin D levels. If you are diabetic, then we recommend Glucerna Shake Hunger Smart (10 fluid oz.) instead of EnsureEnlive We are providing you with 2 bottles of Ensure Enlive (or Glucerna if you are diabetic) as a sample for you to use. This is available at all major retailers. Our recommendation is to use a nutritionalsupplement for 14 days before and 14 days after surgery as part of a healthy diet. This time frame before surgery is a general guideline. Please note: This is a general guideline. The time frame before surgery may be shorter if your surgery is scheduled sooner than 14 days. Please be aware that the Ensure Enlive is different than the Ensure Pre- Surgery Clear Nutrition Drink. Ensure Enlive should not [...] program. You can also get help through: [facility] Dependency [facility], National Quit Line, [place] Lung Association, [place] Cancer Society, Smokefree.gov website Stop Alcohol Use [...] resources helpful:Alcoholics Anonymous (AA) http://www.aa.org/ Rethinking Drinking https://www.rethinkingdrinking.niaaa.nih.gov/ National [place] of Alcohol Abuse and Alcoholism https://niaaa.nih.gov/ Sasha Head 621-228-4978 -Inpatient, partial hospitalization and outpatient services for [...] you may be given include anti-anxiety and anti- nausea medicines. Taking your pain medicine as ordered [...] move around in bed or walk. The epiduralcan stay in until 24-48 hours before discharge from the hospital. Rare side effects from an epidural may include: headaches, bleeding, allergic reaction or infection. Alternative Pain Relief Options If the previously mentioned pain relief procedures are not best for you, do not worry, there are alternative options to provide pain relief after surgery. Patient Controlled Analgesia (also known as a INSERTING OPERATOR) A INSERTING OPERATOR is a pain pump that could be [...] take AM of surgery documented in this encounterTriHealth [facility]08-04-2022 Miscellaneous Notes* Addendum Note - Zehra Heath - 02/19/2022 4:15 PM EDT Addended by: ZEHRA GALVAN on: 02/19/2022 04:15 PM Modules accepted: Orders * Telephone Encounter - Zehra Heath - 02/19/2022 4:01 PM EDT INTESTINAL REFERRAL Let the person providing referral info know that you must speak directly to the patient. Our teamcannot proceed with intake without communicating directly with the patient. 1) What is your (the patient's) direct phone contact number?- [phone] 2) What is your referring diagnosis? Appendix [...] the patient that our surgeons do not performminimally invasive surgery. Our major abdominal surgery will [...] see within our program?- Dr. Davies- referring MDrequest (We have 4 surgeons all working together within our program to cover inpatient, outpatient and surgical services. We will make every effort for you to see any surgeon you request at your initial visit and directly involve this surgeon in development of your treatment plan.) 6) Do you have the resources available to cover travel expenses to [facility]? Yes We are currently flexible in offering initial virtual consultations for both surgery and transplant ONLY to patients living in [place], [place], and [place] through May 18, 2022. This may expand to other states depending on where the surgeon who conducts your initial visit is licensed ( is licensed in [place], [place], and [place]). If you are living in another state and desire an initial virtual consultation, you may choose to purchase a [place]. (Surgical or transplant evaluations are highly individualized and may be conducted either through your local providers or at the [facility]. The plan for your evaluation will [...] for any pre-surgical testing done at the [facility], and [place] your [place]-surgical course. 8) Would you be interested in participating in [facility] Virtual Visits for the psychosocial screening? - Yes If the patient says no, proceed as normal. If yes, please e-mail the patient and copy the social service assistant on it. She will need them [...] have been over the past 1 year? [facility] (Submit ALL template in E-health, AND for transplant patients submit MOST RECENT template) -Where else have you been for surgeries or testing and what years? Where/when was your very first abdominal surgery? Same as above 1st abdominal surgery- 01/2022 (Submit ALL template in [employer]) 10) How many drinks of alcohol do [...] taking including ketamine and suboxone? Are you takingany medications in IV form for pain or [...] puncture of the lung during mechanical ventilation, andpoor post-op pain control.) 14) Have you been diagnosed with a mental health disorder such as anxiety, depression, bipolar disorder? Have you seen a psychiatrist and/or psychologist for treatment including medications and counseling? When/where?- Anxiety, borderline personality disorder and Depression- On medication - Psychiatrist (Submit request in [employer]) 15) Do you have a Power of Fender Mechanic Apprentice (POA)? Do you have a Living Will?- No If so, please bring a copy of this to your appointment. 16) For females: When and where was your last mammogram (40 and up) and pap smear (16 and up)? - Needs to be within last year.- PAP- Never had & Mammo- No (Submit request in [employer]) 17) For all patients: When and where was your last dental visit? - Needs to be within last 6 months.- about 6 months ago (Submit request in [employer]) 18) If transplant- Ask patient to obtain their immunization records and have them sent to us via mail/fax.- COVID- Yes The patient has been entered into Edit, chart is created, and request to [employer] for medical records has been generated. Financial clearance has been submitted for rehab/transplant (if on TPN or has dysmotility, submit for both rehab & transplant). Chart will be given to sales and catering coordinator. * Telephone Encounter - Zehra Heath - 02/19/2022 3:51 PM EDT Referral received from Dr. Rodney Olivas from [facility] ([phone]) to Dr. Davies. 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 Will call patient to start intake. documented in this encounterTri[facility]06-06-2022 Evaluation note* Encounter Date Diagnosis Assessment Notes Treatment Notes Treatment Clinical Notes Dec, Urinary frequency (ICD-10 - R35. 0) Dec,cute cystitis without hematuria (ICD-10 - N30.00)Take medication as directed. Urine analysis shows abnormalities today in office. Urine culture willbe sent to lab. Will call with results if resistance present to antibiotic. Increase fluid intake. Follow hygiene guidelines such as wiping front to back, avoid using perfumed lotions, bath beads, bubble bath. Prevention tips inlcude urinating after sexual intercourse. Follow up with primary care provider or director medicare sales if no improvement of symptoms. 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 documented in this encounter [facility] note* Diagnosis Primary malignant neuroendocrine tumor of appendix documented in this encounter [facility] note* Diagnosis Primary malignant neuroendocrine tumor of appendix- Primary 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 documented in this encounter [facility] note* Diagnosis Primary malignant neuroendocrine tumor of appendix Post-operative pain Other acute postoperative pain Primary malignant neuroendocrine tumor of appendix documented in this encounter [facility] note* Diagnosis Primary malignant neuroendocrine tumor of appendix- Primary documented in this encounter [facility] note* Diagnosis Primary malignant neuroendocrine tumor of appendix- Primary [facility]* Diagnosis Primary malignant neuroendocrine tumor of appendix [facility]* Diagnosis Primary malignant neuroendocrine tumor of appendix documented in this encounter [facility] note* Diagnosis Carcinoid syndrome- Primary SOB (shortness of breath) Shortness of breath Tachycardia Tachycardia, unspecified Antinuclear antibody (HUNTER) titer greater than 1:80 Primary malignant neuroendocrine tumor of appendix [facility]* Diagnosis Primary malignant neuroendocrine tumor of appendix documented [facility]* Diagnosis Carcinoid syndrome SOB (shortness of breath) Shortness of breath Tachycardia Tachycardia, unspecified Primary malignant neuroendocrine tumor of appendix documented [facility]* Diagnosis Fibromyalgia muscle pain- Primary Mylagia and myositis, unspecified documented [facility] encounter [facility]* Diagnosis Primary malignant neuroendocrine tumor of appendix- Primary [facility] Diagnosis Primary malignant neuroendocrine tumor of appendix [facility]* Diagnosis 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 Neoplasm of unspecified nature of digestive system [facility] Diagnosis Third trimester state, incidental documented in [facility]* Diagnosis Elevated liver enzymes- Primary Nonspecific elevation of levels of transaminase or lactic acid dehydrogenase (LDH) [facility] Diagnosis 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 Neoplasm of unspecified nature of digestive system Diarrhea, unspecified type Primary malignant neuroendocrine tumor of appendix Carcinoid syndrome Tachycardia Tachycardia, unspecified SOB (shortness of breath) Shortness of breath [facility] Diagnosis 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 Neoplasm of unspecified nature of digestive system documented [facility] assessment information available [facility] Work Phone: Evaluation note* Diagnosis Primary malignant neuroendocrine tumor of appendix- Primary [facility] Diagnosis Primary malignant neuroendocrine tumor of appendix [facility] Diagnosis Primary malignant neuroendocrine tumor of appendix- Primary Primary malignant neuroendocrine tumor of appendix [facility] Diagnosis Primary malignant neuroendocrine tumor of appendix [facility] Diagnosis Well woman exam with routine gynecological exam Routine gynecological examination Menorrhagia with regular cycle documented in this encounter [facility]* Diagnosis Colitis- Primary Other and unspecified noninfectious gastroenteritis and colitis Black stools Nonspecific abnormal finding in stool contents Diarrhea, unspecified type 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 [facility] Diagnosis Colitis Other and unspecified noninfectious gastroenteritis and colitis Black stools Nonspecific abnormal finding in stool contents documented [facility]* Diagnosis Low grade mucinous neoplasm of appendix Neoplasm of unspecified nature of digestive system Primary malignant neuroendocrine tumor of appendix [facility] Diagnosis Low grade mucinous neoplasm of appendix Neoplasm of unspecified nature of digestive system Primary malignant neuroendocrine tumor of appendix [facility] Diagnosis Primary malignant neuroendocrine tumor of appendix- Primary [facility]* Diagnosis Chronic migraine without aura without status migrainosus, not intractable- Primary Chronic migraine without aura, without mention of intractable migraine without mention of status migrainosus [facility] Diagnosis Pelvic congestion syndrome Pelvic pain in female Unspecified symptom associated with female genital organs documented in this encounter [facility]* Diagnosis Chronic migraine without aura without status migrainosus, not intractable- Primary Chronic migraine without aura, without mention of intractable migraine without mention of status migrainosus [facility] Diagnosis Chronic migraine without aura without status migrainosus, not intractable- Primary Chronic migraine without aura, without mention of intractable migraine without mention of status migrainosus [facility] Diagnosis Chronic migraine without aura without status migrainosus, not intractable- Primary Chronic migraine without aura, without mention of intractable migraine without mention of status migrainosus [facility] Diagnosis Pre-op examination Pelvic congestion syndrome Pelvic pain in female Unspecified symptom associated with female genital organs documented in this encounter [facility]* Diagnosis 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 Other and unspecified nonspecific immunological findings Rosacea Interstitial cystitis Chronic interstitial cystitis Polyarthralgia Pain in joint, multiple sites Fibromyalgia Mylagia and myositis, unspecified Chronic abdominal pain Abdominal pain, unspecified site [facility] Diagnosis Primary malignant neuroendocrine tumor of appendix [facility] Diagnosis Primary malignant neuroendocrine tumor of appendix [facility] Diagnosis Pre-op examination Pelvic pain Pelvic congestion syndrome documented in this encounter [facility] Healthcare[facility] general Narrative - Reported* Type Description Date Medical History chronic depression [facility] Other Hospital course Narrative No data available for this section [facility] Hospital Discharge instructions No data available for this section [facility] InstructionsNot on filedocumented in this encounter [facility] filedocumented in this encounter [facility]Not on filedocumented in this encounter [facility] SystemProgress note No data available for this section [facility] Reason for referral (narrative)* (Routine)Specialty Diagnoses / ProceduresReferred By ContactReferred To Contact ISRRAEL [address] [place] [address] Referral IDStatusReasonStart DateExpiration DateVisits RequestedVisits Authorized * (Routine) - New RequestSpecialtyDiagnoses / ProceduresReferred By Contact Referred To Contact Procedures PLATELET MONITORING PER PROTOCOL Archie Hugo MD, PhD [address] [place] [address] Referral IDStatusReasonStart DateExpiration DateVisits RequestedVisits [id number] * (Routine) - New RequestSpecialtyDiagnoses / ProceduresReferred By Contact Referred To Contact Procedures DVT/VTE RISK ASSESSMENT Archie Hugo MD, PhD [address] [place] [address] Referral IDStatusReasonStart DateExpiration DateVisits RequestedVisits [id number] [id number] * (Routine) - New RequestSpecialtyDiagnoses / ProceduresReferred By Contact Referred To Contact Procedures NO MECHANICAL DVT PROPHYLAXIS Liza Cisneros PA-C [address] [place] [address] Referral IDStatusReasonStart DateExpiration DateVisits RequestedVisits [id number] Darahgd73/ [facility] ([facility] Consultation (Routine) - New RequestSpecialtyDiagnoses / ProceduresReferred By ContactReferred To ContactOncology Diagnoses Primary malignant neuroendocrine tumor of appendix Raina Gomes APRN-RETAIL WIRELESS SALES REPRESENTATIVE [address] [facility] [address] [place] [address] Andreas Ortega MD, MPH [address] [facility] [address] [place] [phone] Referral IDStatusReasonStart DateExpiration DateVisits RequestedVisits [id number] Aampxwv84/ * MRI/CAT Scan (Routine) - New RequestSpecialtyDiagnoses / ProceduresReferred By ContactReferred To Contact Diagnoses Primary malignant neuroendocrine tumor of appendix Procedures CT ABDOMEN/PELVIS WITH CONTRAST CHG CT SCAN,ABDOMENT AND PELVIS,W CONTRAST Raina Gomes BREAD OVEN OPERATOR-RETAIL WIRELESS SALES REPRESENTATIVE [address] [place] [address] Referral IDStatusReasonStart DateExpiration DateVisits RequestedVisits [id number] [id number]/ [facility] for referral (narrative)* Consultation (Routine) - New RequestSpecialtyDiagnoses / ProceduresReferred By ContactReferred To ContactGenetics Diagnoses Primary malignant neuroendocrine tumor of appendix Christopher Moralez BREAD OVEN OPERATOR-RETAIL WIRELESS SALES REPRESENTATIVE [address] [place] [address] Erin Stoner, [facility] [address] [place] [address] Referral IDStatusReasonStart DateExpiration DateVisits RequestedVisits [id number] [id number] * MRI/CAT Scan (Routine) - New RequestSpecialtyDiagnoses / ProceduresReferred By ContactReferred To Contact Diagnoses Primary malignant neuroendocrine tumor of appendix Procedures CT ABDOMEN/PELVIS WITH AND WITHOUT CONTRAST CHG CT SCAN,ABDOMENT AND PELVIS,Andreas Ellis MD, MPH [address] [facility] [address] [place] [address] Referral IDStatusReasonStart DateExpiration DateVisits RequestedVisits [id number] [id number] * Radiology (Routine) - New RequestSpecialtyDiagnoses / ProceduresReferred By ContactReferred To Contact Diagnoses Primary malignant neuroendocrine tumor of appendix Procedures NUC PET NEUROENDOCRINE CHG NUC THERAPY HYPERTHYROID SUBSEQUENT Christopher Moralez APRN-CNP [address] [place] [address] Referral IDStatusReasonStart DateExpiration DateVisits RequestedVisits [id number] Edezaiy14/ [facility] (narrative)No reason for referral information availableReg[facility] Work Phone: Reason for visit Narrative* Auth/CertSpecialty Diagnoses / ProceduresReferred By ContactReferred To Contact Diagnoses 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] Procedures [place] CHG HYPERTHERMIA RX INTRACAV PROBE [place] PART REMOVAL COLON W ANASTOMOSIS [place] RESECT RECURRENT CHILLER TECHNICIAN MALIG 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) COLECTOMY PARTIAL OPEN DEBULKING INTRA-ABDOMINAL/PELVIC/RETROPERITONEAL W/ OMENECTOMY & PELVIC PARA- AORTIC LYMPHADENECTOMY Archie Hugo MD, PhD [address] [place] [address] [facility] [address] [place] [address] Referral IDStatusReasonStart DateExpiration DateVisits RequestedVisits [id number] [facility] HospitalReason for visit Narrative* MRI/CAT Scan (Routine) - ClosedSpecialtyDiagnoses / ProceduresReferred By ContactReferred To Contact Diagnoses 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 Procedures CT ABDOMEN/PELVIS WITH AND WITHOUT CONTRAST CHG CT ABDOMEN & PELVIS W/O CONTRST 1/> BODY RE Christopher Moralez, BREAD OVEN OPERATOR-RETAIL WIRELESS SALES REPRESENTATIVE [address] [place] [address] Phone: tel: fax: Referral IDStatusReasonStart DateExpiration DateVisits RequestedVisits [id number]/ [facility] HospitalReason for visit Narrative* MRI/CAT Scan (Routine) - ClosedSpecialtyDiagnoses / ProceduresReferred By ContactReferred To Contact Diagnoses Primary malignant neuroendocrine tumor of appendix Procedures CT ABDOMEN/PELVIS WITH AND WITHOUT CONTRAST CHG CT ABD&PLV W/O CNTRST 1/BTH FLWD CNTRST 1/BTH Yoel Cooley, BREAD OVEN OPERATOR-RETAIL WIRELESS SALES REPRESENTATIVE [address] [place] [address] Phone: tel: fax: Referral IDStatusReasonStart DateExpiration DateVisits RequestedVisits [id number]/ [facility] Summary Purpose Family History Relationship Condition Age at Onset Recorded Date/T joel mother Hypertension Unknown Diabetes mellitusUnknown Advance Directives Advance Directive Response Recorded Date/ Time Advance Directives No December 23 11:50am Reason for Referral SpecialtyDiagnoses / ProceduresReferred By ContactReferred To Contact Diagnoses Elevated liver enzymes Procedures TRANSIENT ELASTOGRAPHY Dolores Johnson, BREAD OVEN OPERATOR-RETAIL WIRELESS SALES REPRESENTATIVE [address] [place] [address] Referral IDStatusReasonStart DateExpiration DateVisits RequestedVisits [id number] Request/[id number] / Procedures Referred By ContactReferred To ContactEchocardiography Diagnoses Carcinoid syndrome SOB (shortness of breath) Tachycardia Procedures ECHOCARDIOGRAM [place] ECHO HEART XTHORACIC,COMPLETE W DOPPLER Christopher Moralez APRN-RETAIL WIRELESS SALES REPRESENTATIVE [address] [place] [address] E[facility] [place] [address] [place] [address] Referral IDStatParkview Health [facility] DateExpiration DateVisits RequestedVisits [id number] Not Needed/009156QxyuukxtlZfjurfdta / ProceduresReferred By ContactReferred To Contact Diagnoses Primary malignant neuroendocrine tumor of appendix Procedures CT NECK WITH CONTRAST [place] CT NECK TISSUE CONTRAST Christopher Moralez APRN-RETAIL WIRELESS SALES REPRESENTATIVE [address] [place] [phone] Referral IDStatusReasonStart DateExpiration DateVisits RequestedVisits [id number] Request/[id number] / Procedures Referred By ContactReferred To Contact Diagnoses Carcinoid syndrome SOB (shortness of breath) Tachycardia Primary malignant neuroendocrine tumor of appendix Procedures CT CHEST WITH CONTRAST CHG DIAGNOSTIC COMPUTED TOMOGRAPHY THORAX W/CONTRAST Christopher Moralez, BREAD OVEN OPERATOR-RETAIL WIRELESS SALES REPRESENTATIVE [address] [place], [place] Referral IDStatusReasonStart DateExpiration DateVisits RequestedVisits [id number] Request/[id number] / Procedures Referred By ContactReferred To ContactOncology Diagnoses Carcinoid syndrome SOB (shortness of breath) Tachycardia Christopher Moralez APRN-[facility] [address] [place] [address] Referral IDStatusReasonStart DateExpiration DateVisits RequestedVisits [id number] Request3/153720GqbwyjwmxTublkzexi / Procedures Referred By ContactReferred To ContactRheumatology Diagnoses Antinuclear antibody (HUNTER) titer greater than 1:80 Christopher Moralez [facility] [address] [place] [address] Referral IDStatusReasonStart DateExpiration DateVisits RequestedVisits [id number] Request/[id number] / Procedures Referred By ContactReferred To Contact Diagnoses Primary malignant neuroendocrine tumor of appendix Procedures CT ABDOMEN/PELVIS WITH CONTRAST CHG CT SCAN,ABDOMENT AND PELVIS,W CONTRAST Raina Gomes [facility] [address] [facility] [address] [place] [address] Referral IDStatusReasonStart DateExpiration DateVisits RequestedVisits [id number]/1/20229/26/948996DuiftpyygEussreaqj / Procedures Referred By ContactReferred To ContactTRANSPLANT Diagnoses Cancer of appendix (HCC) Procedures CONSULT TO [facility] EXPLORATORY LAPAROTOMY CELIOTOMY W/WO BIOPSY SPX Vernon Davies MD [address] [place] [address] [facility] [address] [address] Referral IDStatUshaasonStart DateExpiration DateVisits RequestedVisits [id number] Review Financial Clearance Required - [employer] Payor [address] Chief Complaint and Reason for Visit Chief Complaint n63.0 Chief Complaint n63.0 Unknown Chief Complaint Admit Date Unknown November 02, 2024 1:1 2pm Chief Complaint Admit Date Unknown March 21, 2025 3:02pm Additional Source Comments INFORMATION SOURCE (unrecogn ized section and content) DATE CREATED AUTHOR 02/19/2021 [facility] DATE CREATED AUTHOR AUTHOR'S ORGANIZ ATION 12/25/2022 [facility] DATE CREATED AUTHOR AUTHOR'S ORGANIZ ATION 04/21/2024 [facility] DATE CREATED AUTHOR AUTHOR'S ORGANIZ ATION 03/24/2025 [facility] DATE CREATED AUTHOR AUTHOR'S ORGANIZ ATION 03/25/2025 [facility] DATE CREATED AUTHOR AUTHOR'S ORGANIZ ATION 04/05/2025 [facility] DATE CREATED AUTHOR AUTHOR'S ORGANIZ ATION 04/22/2025 [facility] REASON FOR VISIT (unrecogniz ed section and content) ReasonCommentsNew PatientSpecialtyDiagnoses / ProceduresReferred By Contact Referred To ContactRheumatology Diagnoses Primary malignant neuroendocrine tumor of appendix Yoel Cooley APRN-RETAIL WIRELESS SALES REPRESENTATIVE [address] [place] [address] Phone: tel: fax: Referral IDStatusReasonart DateExpiration DateVisits RequestedVisits [id number] [id number] / ProceduresReferred By ContactReferred To ContactNeurology Diagnoses Chronic nonintractable headache, unspecified headache type Yoel Cooley, BREAD OVEN OPERATOR-RETAIL WIRELESS SALES REPRESENTATIVE [address] [place] [address] Phone: tel: fax: [facility] [address]th [place] [address] Phone: tel: fax: Referral IDStatusReasonStart DateExpiration DateVisits RequestedVisits [id number]/13/20254/[id number] Only SpecialtyDiagnoses / ProceduresReferred By ContactReferred To ContactClinical Pathology/Laboratory Medicine Diagnoses 1st floor labs jaylon pt prior to scan Procedures BLOOD DRAW Andreas Ortega MD, MPH [address] [place] [address] [place] [address] Phone: tel: fax: [facility] [address] [place] [address] [place] [address] Phone: tel: fax: Referral IDStatusReasonStart DateExpiration DateVisits RequestedVisits [id number]/3/20253/423706JvezgnYvyujnyiJggjrprg Request SpecialtyDiagnoses / ProceduresReferred By ContactReferred To Contact Diagnoses Primary malignant neuroendocrine tumor of appendix Procedures CT ABDOMEN/PELVIS WITH CONTRAST CHG CT SCAN,ABDOMENT AND PELVIS,W CONTRAST Raina Gomes, BREAD OVEN OPERATOR-RETAIL WIRELESS SALES REPRESENTATIVE [address] [place] [address] Referral IDStatusReasonSttrade DateExpiration DateVisits RequestedVisits [id number]/1/20229/26/[id number] PatientSpecialty Diagnoses / ProceduresReferred By ContactReferred To ContactSurgical Oncology Diagnoses New patient - Appendix NET - External: Dr. Timmy Hall - Preferred: Oanh Procedures [facility] SURGERY Self, Self Archie Hugo MD, PhD [address] [place] [address] Referral IDStatusReasonStart DateExpiration DateVisits RequestedVisits [id number]/1/20229/26/623294EloidfRjfhfjkiLkcahu-biKpbveaStorcopy New PatientNew diagnosis of stage 4 neuroendocrine tumor of the appendix with 1 peritoneal implant referred byDr. KimMost recent surgery 05/22/22--recovering well but slowlyLab ReviewLabs completed today prior to apptOtherC-diff infection just finished course of vancomycinSpecialtyDiagnoses / ProceduresReferred By ContactReferred To ContactOncology Diagnoses Primary malignant neuroendocrine tumor of appendix Raina Gomes, BREAD OVEN OPERATOR-RETAIL WIRELESS SALES REPRESENTATIVE [address] [place] [address] Andreas Ortega MD, MPH [address] [place] [phone] Referral IDStatusReasonStart DateExpiration DateVisits RequestedVisits [id number] Gpcznpd74/085784BruqrfgndItcvtmtck / ProceduresReferred By ContactReferred To Contact Diagnoses Primary malignant neuroendocrine tumor of appendix Procedures NUC PET NEUROENDOCRINE CHG NUC THERAPY HYPERTHYROID SUBSEQUENT Christopher Moralez, BREAD OVEN OPERATOR-RETAIL WIRELESS SALES REPRESENTATIVE [address] [place] [address] Referral IDStatusReasonSttrade DateExpiration DateVisits RequestedVisits [id number]/21/20221/877857HepizfrtoCdbmfzppf / Procedures Referred By ContactReferred To Contact Diagnoses Primary malignant neuroendocrine tumor of appendix Procedures CT ABDOMEN/PELVIS WITH AND WITHOUT CONTRAST CHG CT SCAN,ABDOMENT AND PELVIS,COMBO Andreas Ortega MD, MPH [address] [place] [phone] Referral IDStatusReasonSttrade DateExpiration DateVisits RequestedVisits [id number]/21/20221/[id number]-lhJvavcov malignant neuroendocrine tumor of appendixOther09/09 first Octreotide injection, since has flu like symptoms. No fever, achy muscle/bone, swollenlymph nodes. No congestion or cough. Went to PCP for mono, COVID, and FLU all negative. Asking if related to injection. Injection did improve diarrhea significantly a week after injectionHasn't started CreonAbdominal PainMid Abd pain following each injection lasting 8 hr. Stool changes, romana color and mucus first few days following each injectionNauseaOngoing nausea intermittent, no vomitingChest Pain Chest pain, SOB, increased HR 120-140. Multiple episodes per day lasting few hours. Dizziness.SpecialtyDiagnoses / ProceduresReferred By ContactReferred To Contact Diagnoses Primary malignant neuroendocrine tumor of appendix Procedures CT NECK WITH CONTRAST [place] CT NECK TISSUE CONTRAST Christopher Moralez, BREAD OVEN OPERATOR-RETAIL WIRELESS SALES REPRESENTATIVE [address] [place] [address] Referral IDStatusReasonStart DateExpiration DateVisits RequestedVisits [id number]/22/20234/15/231985SgfflnvmpUuqcinpjf / Procedures Referred By ContactReferred To ContactEchocardiography Diagnoses Carcinoid syndrome SOB (shortness of breath) Tachycardia Procedures ECHOCARDIOGRAM [place] ECHO HEART XTHORACIC,COMPLETE W DOPPLER Christopher Moralez, BREAD OVEN OPERATOR-RETAIL WIRELESS SALES REPRESENTATIVE [address] [place] [address] Echocardiography [place] [address] [place] [address] Referral IDStatusReasonSttrade DateExpiration DateVisits RequestedVisits [id number]/22/20234/15/988840CymacptooRkllcuptu / Procedures Referred By ContactReferred To Contact Diagnoses Carcinoid syndrome SOB (shortness of breath) Tachycardia Primary malignant neuroendocrine tumor of appendix Procedures CT CHEST WITH CONTRAST CHG DIAGNOSTIC COMPUTED TOMOGRAPHY THORAX W/CONTRAST Christopher Moralez, BREAD OVEN OPERATOR-RETAIL WIRELESS SALES REPRESENTATIVE [address] [place] [address] Referral IDStatusReasonStart DateExpiration DateVisits RequestedVisits [id number]/22/20234/15/[id number] PatientReferred by Dorothy Moralez NP for JR. 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 Procedures MRI ABDOMEN/PELVIS WITHOUT CONTRAST [place] MRI, ABDOMEN (MRI) [place] MRI, PELVIS, W/O CONTRAST Christopher Moralez APRN-RETAIL WIRELESS SALES REPRESENTATIVE [address] [place] [address] Referral IDStatusReasonStart DateExpiration DateVisits RequestedVisits [id number]/22/20239/923362WxampdUcwdkvejWtvclpy Visit Referral IDStatusReasonStart DateExpiration DateVisits RequestedVisits [id number]/19/202310/762687HnxbfroclPtzwmxduh / Procedures Referred By ContactReferred To ContactGastroenterology Diagnoses Hepatomegaly Transaminitis Christopher Moralez APRN-RETAIL WIRELESS SALES REPRESENTATIVE [address] [place] [address] Referral IDStatusReasonStart DateExpiration DateVisits RequestedVisits [id number] Review/542520TlnxufDronbapcNqn Patient SpecialtyDiagnoses / ProceduresReferred By ContactReferred To ContactOncology Diagnoses Low grade mucinous neoplasm of appendix Christopher Moralez APRN-RETAIL WIRELESS SALES REPRESENTATIVE [address] [place], [place] Referral IDStatusReasonStart DateExpiration DateVisits RequestedVisits [id number]/24/20245/450131PfuywvdugAexuvspmr / Procedures Referred By ContactReferred To Contact Diagnoses 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 Procedures CT ABDOMEN/PELVIS WITH AND WITHOUT CONTRAST CHG CT SCAN,ABDOMENT AND PELVIS,COMBO Christopher Moralez, BREAD OVEN OPERATOR-RETAIL WIRELESS SALES REPRESENTATIVE [address] [place] [address] Referral IDStatusReasonStart DateExpiration DateVisits RequestedVisits [id number]/24/20245/475076HdvgkxOvctk DateCommentsAdvice Only 4ReasonOnset DateCommentsChange In Claaxqeg37/24/2024SpecialtyDiagnoses / ProceduresReferred By ContactReferred To Contact Diagnoses Primary malignant neuroendocrine tumor of appendix Procedures CT ABDOMEN/PELVIS WITH AND WITHOUT CONTRAST CHG CT ABDOMEN & PELVIS W/O CONTRST 1/> BODY RE Andreas Ortega MD, MPH [address] [facility] 10th [place] [address] Referral IDStatusReasonStart DateExpiration DateVisits RequestedVisits [id number]/24/202410/842276BxefiacdbSnmrcgjor / Procedures Referred By ContactReferred To Contact Diagnoses Primary malignant neuroendocrine tumor of appendix Procedures NUC PET NEUROENDOCRINE CHG PET IMAGING CT ATTENUATION SKULL BASE MID-THIGH Christopher Moralez, BREAD OVEN OPERATOR-RETAIL WIRELESS SALES REPRESENTATIVE [address] [place] [address] Referral IDStatusReasonStart DateExpiration DateVisits RequestedVisits [id number]/19/20249/701060EslrrmLwrtdbggRxxr Women VisitReason CommentsUlcerative ColitisPossible colitis, CT recommends colonoscopyReasonOnset YootNryusdipHffuddlnxwi01/13/2025ReasonCommentsPelvic congestion syndromeReason CommentsMed Change RequestReasonCommentsPre-op VisitReasonOnset DateComments Outside Medical Records Euepqnb0002/07/2025 Source Comments (unrecognize d section and content) In the event this informatio n is protected by the Federal Confidentiality of Alcohol and Drug Abuse Patient Records regulations: The Federal rules restrict any use of the information to criminally investigate or prosecute any alcohol or drug abuse patient.[facility] Care Teams (unrecognized sec tion and content) Team MemberRelationshipSpecialtyStart DateEnd Date Erin Whiteside, RUPERT PCP - General03/19/22 Rodney Olivas MD [address] [place] [address] Hematology03/19/22Team MemberRelationshipSpecialtyStart DateEnd Date Erin Whiteside, RUPERT PCP - General03/19/22 Rodney Olivas MD [address] [place] [address] Hematology03/19/22Team MemberRelationshipSpecialtyStart DateEnd Date Erin Whiteside, RUPERT PCP - General03/19/22 Rodney Olivas MD [address] [place] [address] Hematology03/19/22Team MemberRelationshipSpecialtyStart DateEnd Date Erin Whiteside, RUPERT PCP - General03/19/22 Rodney Olivas MD [address] [place] [address] Hematology03/19/22Team MemberRelationshipSpecialtyStart DateEnd Date Erin Whiteside, RUPERT PCP - General03/19/22 Rodney Olivas MD [address] [place] [address] Hematology03/19/22 Archie Hugo MD, PhD [address] [place] [address] SurgeonSurgical Mzdsdwbc03/21/22Team MemberRelationshipSpecialtyStart DateEnd Date Erin Whiteside RN PCP - General03/19/22 Rodney Olivas MD [facility] [place] [address] Hematology03/19/22 Archie Hugo MD, PhD [address] [place] [address] SurgeonSurgical Fbkpzxqj52/21/22Team MemberRelationshipSpecialtyStart DateEnd Date Erin Whiteside RN PCP - General03/19/22 Rodney Olivas MD [facility] [place] [address] Hematology03/19/22 Archie Hugo MD, PhD [address] [place] [address] SurgeonSurgical Mttrphib47/21/22Team MemberRelationshipSpecialtyStart DateEnd Date Erin Whiteside RN PCP - General03/19/22 Rodney Olivas MD [facility] [place] [address] Hematology03/19/22 Archie Hugo MD, PhD [address] [place] [address] SurgeonSurgical Slfkfnxr61/21/22 Fletcher Coelho MD [address] [place] [address] CardiologistCardiovascular Disease10/07/22Team MemberRelationshipSpecialtyStart DateEnd Date Erin Whiteside, RN PCP - General03/19/22 Rodney Olivas MD [facility] [place] [address] Hematology03/19/22 Archie Hugo MD, PhD [address] [place] [address] SurgeonSurgical Uhuzxmle62/21/22 Fletcher Coelho MD [address] [place] [address] CardiologistCardiovascular Disease10/07/22Te MemberRelationshipSpecialtyStart DateEnd Date Erin Whiteside, RUPERT PCP - General03/19/22 Rodney Olivas MD [address] [place] [address] Hematology03/19/22 Archie Hugo MD, PhD [address] [place] [address] SurgeonSurgical Dvoshywl45/21/22 Fletcher Coelho MD [address] [place] [address] CardiologistCardiovascular Disease10/07/22Te MemberRelationshipSpecialtyStart DateEnd Date Erin Whiteside, RUPERT PCP - General03/19/22 Rodney Olivas MD [facility] [place] [address] Hematology03/19/22 Archie Hugo MD, PhD [address] [place] [address] SurgeonSurgical Wmnixorn82/21/22 Fletcher Coelho MD [address] [place] [address] CardiologistCardiovascular Disease10/07/22Team MemberRelationshipSpecialtyStart DateEnd Date Erin Whiteside, RN PCP - General03/19/22 Rodney Olivas MD [address] [place] [address] Hematology03/19/22 Archie Hugo MD, PhD [address] [place] [address] SurgeonSurgical Csvfskbl30/21/22 Fletcher Coelho MD [address] [place] [address] CardiologistCardiovascular Disease10/07/22Team MemberRelationshipSpecialtyStart DateEnd Date Erin Whiteside, RETAIL WIRELESS SALES REPRESENTATIVE [address] [place] [place] [phone] PCP - General03/10/23 Rodney Olivas MD [facility] [place] [address] Hematology03/19/22 Archie Hugo MD, PhD [address] [place] [address] SurgeonSurgical Jljbpqwd70/21/22 Fletcher Coelho MD [address]TH [place] [address] CardiologistCardiovascular Disease10/07/22Team MemberRelationshipSpecialtyStart DateEnd Date Erin Whiteside, RETAIL WIRELESS SALES REPRESENTATIVE [address] [place] [address] PCP - General03/10/23 Rodney Olivas MD [address] [place] [address] Hematology03/19/22 Archie Hugo MD, PhD [address] [place] [address] SurgeonSurgical Tszwksfu47/21/22 Fletcher Coelho MD [address] [place] [address] CardiologistCardiovascular Disease10/07/22Team MemberRelationshipSpecialtyStart DateEnd Date Erin Whiteside RETAIL WIRELESS SALES REPRESENTATIVE [address] [place] [address] PCP - General03/10/23 Rodney Olivas MD [facility] [place] [address] Hematology03/19/22 Archie Hugo MD, PhD [address] [place] [place] [address] SurgeonSurgical Eunmurtc31/21/22 Fletcher Coelho MD [address] [place] [address] CardiologistCardiovascular Disease10/07/22 Andreas Ortega MD, MPH [address] [place] 10th [place] [address] OncologistMedical Oncology03/31/23 Ron Ruano DO [address] [facility] 1 [facility] [place] [address] Obstetrics & Gynecology04/06/23Team MemberRelationshipSpecialtyStart DateEnd Date Erin Whiteside, RETAIL WIRELESS SALES REPRESENTATIVE [address] [place] [address] [facility] - General03/10/23 Rodney Olivas MD [facility] [place] [address] Hematology03/19/22 Archie Hugo MD, PhD [address] [place] [address] SurgeonSurgical Hcmqfsoy94/21/22 Fletcher Coelho MD [address] [place] [address] CardiologistCardiovascular Disease10/07/22 Andreas Ortega MD, MPH [address] [place] 10th [place] [address] OncologistMedical Oncology03/31/23 Ron Ruano DO [address] [place] [address] Obstetrics & Gynecology04/06/23Team MemberRelationshipSpecialtyStart DateEnd Date Erin Whiteside, RETAIL WIRELESS SALES REPRESENTATIVE [address] [place] [address] PCP - General03/10/23 Rodney Olivas MD [address] [place] [address] Hematology03/19/22 Archie Hugo MD, PhD [address] [place] [address] SurgeonSurgical Jmdnqkmw13/21/22 Fletcher Coelho MD [address] [place] [address] CardiologistCardiovascular Disease10/07/22 Andreas Ortega MD, MPH [address] [place] [address] [place] [address] OncologistMedical Oncology03/31/23 Ron Ruano DO [address] [facility] 1 [facility] [place] [address] Obstetrics & Gynecology04/06/23Team MemberRelationshipSpecialtyStart DateEnd Date Erin Whiteside, RETAIL WIRELESS SALES REPRESENTATIVE [address] [place] [address] PCP - General03/10/23 Rodney Olivas MD [address] [place] [address] Hematology03/19/22 Archie Hugo MD, PhD [address] [place] [address] SurgeonSurgical Reasctqp01/21/22 Fletcher Coelho MD [address] [place] [address] CardiologistCardiovascular Disease10/07/22 Andreas Ortega MD, MPH [address] [place] [address] [place] [address] OncologistMedical Oncology03/31/23 Ron Ruano DO [address] [place] [address] Obstetrics & Gynecology04/06/23Team MemberRelationshipSpecialtyStart DateEnd Date Erin Whiteside, RETAIL WIRELESS SALES REPRESENTATIVE [address] [place] [phone] PCP - General03/10/23 Rodney Olivas MD [address] [place], [place] [address] Hematology03/19/22 Fletcher Coelho MD [address] [place] [address] CardiologistCardiovascular Disease10/07/22 Andreas Ortega MD, MPH [address] [place] [address] [place] [address] OncologistMedical Oncology03/31/23 Ron Ruano DO [address] [facility] 1 [facility] [place] [address] Obstetrics & Gynecology04/06/23 Alex Dolores Mari, BREAD OVEN OPERATOR-RETAIL WIRELESS SALES REPRESENTATIVE [address] [place] [address] GastroenterologistCerdaniel [facility] Nurse Practitioner02/10/24 Vinicius Gomes MD, PhD [address] [place] 8th [place] [address] OncologistMedical Oncology02/10/24 Diego Apodaca MD [address] [place] [address] Gastroenterology02/16/24 Team Status: Active Member Role Status Dates Erin Whiteside NP-C Primary Care Provider Active Team Status: Inactive Member Role Status Dates Erin Whiteside NP-C Primary Care Pr ovider, Attending Provider, Referring Provider Active Start: April 03, 2024 End: April 03, 2024Team MemberRelationshipSpecialtyStart DateEnd Date Erin Whiteside CNP [address] [place] [address] PCP - General03/10/23 Rodney Olivas MD Hematology03/19/22 Fletcher Coelho MD [address] [place] [address] CardiologistCardiovascular Disease10/07/22 Andreas Ortega MD, MPH [address] [place] 10th [place] [address] OncologistMedical Oncology03/31/23 Ron Ruano DO [address] [facility] 1 [place] [address] Obstetrics & Gynecology04/06/23 JohnsonDolores, BREAD OVEN OPERATOR-RETAIL WIRELESS SALES REPRESENTATIVE [address] [place] [address] GastroenterologistCerdaniel [facility] Nurse Practitioner02/10/24 Vinicius Gomes MD, PhD [address] [place] 8th [place] [address] OncologistMedical Oncology02/10/24 Diego Apodaca MD [address] [facility] 800 [place] [address] Gastroenterology02/16/24Team MemberRelationshipSpecialtyStart DateEnd Date Erin Whiteside, RETAIL WIRELESS SALES REPRESENTATIVE [address] [facility] [place] [address] PCP - General03/10/23 Rodney Olivas MD Hematology03/19/22 Fletcher Coelho MD [address] [address] CardiologistCardiovascular Disease10/07/22 Andreas Ortega MD, MPH [address] [place] 10th [place] [address] OncologistMedical Oncology03/31/23 Ron Ruano DO [address] [facility] 1 [facility] [place] [address] Obstetrics & Gynecology04/06/23 JohnsonDolores, BREAD OVEN OPERATOR-RETAIL WIRELESS SALES REPRESENTATIVE [address] [place] [address] GastroenterologistCerdaniel [facility] Nurse Practitioner02/10/24 Vinicius Gomes MD, PhD [address] [place] 8th [place] [address] OncologistMedical Oncology02/10/24 Diego Apodaca MD [address] [place] [address] Gastroenterology02/16/24Team MemberRelationshipSpecialtyStart DateEnd Date Erin Whiteside, RETAIL WIRELESS SALES REPRESENTATIVE [address] [place] [address] PCP - General03/10/23 Rodney Olivas MD Hematology03/19/22 Fletcher Coelho MD [address] [address] CardiologistCardiovascular Disease10/07/22 Andreas Ortega MD, MPH [address] [place] 10th [place] [address] OncologistMedical Oncology03/31/23 Ron Ruano DO [address] [facility] 1 [place] [address] Obstetrics & Gynecology04/06/23 Dolores Johnson APRN-RETAIL WIRELESS SALES REPRESENTATIVE [address] [place] [address] GastroenterologistCertified Nurse Practitioner02/10/24 Vinicius Gomes MD, PhD [address] [place] 8th [place] [address] OncologistMedical Oncology02/10/24 Diego Apodaca MD [address] [place] [address] Gastroenterology02/16/24Team MemberRelationshipSpecialtyStart DateEnd Date Erin Whiteside, RETAIL WIRELESS SALES REPRESENTATIVE [address] [place] [address] PCP - General03/10/23 Rodney Olivas MD Hematology03/19/22 Fletcher Coelho MD [address] [place] [address] CardiologistCardiovascular Disease10/07/22 Andreas Ortega MD, MPH [address] [place] 10th [place] [address] OncologistMedical Oncology03/31/23 Ron Ruano DO [address] [place] [address] Obstetrics & Gynecology04/06/23 Dolores Johnson APRN-RETAIL WIRELESS SALES REPRESENTATIVE [address] [place] [address] GastroenterologistCerdaniel [facility] Nurse Practitioner02/10/24 Vinicius Gomes MD, PhD [address] [place] 8th [place] [address] OncologistMedical Oncology02/10/24 Diego Apodaca MD [address] [place] [address] Gastroenterology02/16/24 Team Status: Inactive Member Role Status Dates Erin Whiteside , BANDAGE MAKER-C Primary Care Provider Active Start: May 03, 2024 End: May 03, 2024MicMain [place] ProviderActiveStart: May 03, 2024 End: May 03, 2024Team MemberRelationshipSpecialtyStart DateEnd Date Erin Whiteside APRN-CNP [address] [facility] [place] [address] PCP - GeneralFamily Medicine02/11/22Team MemberRelationshipSpecialtyStart DateEnd Date Erin Whiteside APRN-CNP [address] [facility] [place] [address] PCP - GeneralFamily Medicine02/11/22Team MemberRelationshipSpecialtyStart DateEnd Date Erin Whiteside APRN-RETAIL WIRELESS SALES REPRESENTATIVE [address] [facility] [place] [address] PCP - GeneralFamily Medicine02/11/22Team MemberRelationshipSpecialtyStart DateEnd Date Erin Whiteside, BREAD OVEN OPERATOR-RETAIL WIRELESS SALES REPRESENTATIVE [address] [facility] [address] PCP - GeneralFamily Medicine02/11/22Team MemberRelationshipSpecialtyStart DateEnd Date Erin Whiteside, RETAIL WIRELESS SALES REPRESENTATIVE [address] [facility] [place] [address] PCP - General03/10/23 Rodney Olivas MD Hematology03/19/22 Fletcher Coelho MD [address] [place] [address] CardiologistCardiovascular Disease10/07/22 Andreas Ortega MD, MPH [address] [place] 10th [place] [address] OncologistMedical Oncology03/31/23 Ron Ruano DO [address] [facility] 1 [facility] [place] [address] Obstetrics & Gynecology04/06/23 Dolores Johnson, BREAD OVEN OPERATOR-RETAIL WIRELESS SALES REPRESENTATIVE [address] [place] [address] GastroenterologistCertified Nurse Practitioner02/10/24 Vinicius Gomes MD, PhD [address] [place] 8th [place] [address] OncologistMedical Oncology02/10/24 Diego Apodaca MD [address] [place] [address] [address] [place] [address] Gastroenterology02/16/24Team MemberRelationshipSpecialtyStart DateEnd Date Erin Whiteside, RETAIL WIRELESS SALES REPRESENTATIVE [address] [facility] [place] [address] PCP - General03/10/23 Rodney Olivas MD Hematology03/19/22 Fletcher Coelho MD [address] [place] [address] CardiologistCardiovascular Disease10/07/22 Andreas Ortega MD, MPH [address] [place] 10th [place] [address] OncologistMedical Oncology03/31/23 Ron Ruano DO [address] [facility] 1 [place] [address] Obstetrics & Gynecology04/06/23 Dolores Johnson, BREAD OVEN OPERATOR-RETAIL WIRELESS SALES REPRESENTATIVE [address] [place] [address] GastroenterologistCertified Nurse Practitioner02/10/24 Vinicius Gomes MD, PhD [address] [place] 8th [place] [address] OncologistMedical Oncology02/10/24 Diego Apodaca MD [address] [facility] [address] [place] [address] Gastroenterology02/16/24Team MemberRelationshipSpecialtyStart DateEnd Date Erin Whiteside, RETAIL WIRELESS SALES REPRESENTATIVE [address] [facility] [place] [address] PCP - General03/10/23 Rodney Olivas MD Hematology03/19/22 Fletcher Coelho MD [address] [place] [address] CardiologistCardiovascular Disease10/07/22 Andreas Ortega MD, MPH [address] [place] 10th [place] [address] OncologistMedical Oncology03/31/23 Ron Ruano DO [address] [facility] 1 [place] [address] Obstetrics & Gynecology04/06/23 Dolores Johnson, BREAD OVEN OPERATOR-RETAIL WIRELESS SALES REPRESENTATIVE [address] [place] [address] GastroenterologistCertified Nurse Practitioner02/10/24 Vinicius Gomes MD, PhD [address] [place] 8th [place] [address] OncologistMedical Oncology02/10/24 Diego Apodaca MD [address] [place], [place] [address]CT E [facility] [address] [place] [address] Gastroenterology02/16/24 Team Status: Inactive Member Role Status Dates Erin Whiteside BANDAGE MAKER-C Primary Care Pr ovider, Attending Provider Active Start: November 02, 2024 End: November 02, 2024Team MemberRelationshipSpecialtyStart DateEnd Date Erin Whiteside, RETAIL WIRELESS SALES REPRESENTATIVE [address] [facility] [place] [address] PCP - General03/10/23 Rodney Olivas MD Hematology03/19/22 Fletcher Coelho MD [address] [place] [address] CardiologistCardiovascular Disease10/07/22 Andreas Ortega MD, MPH [address] [place] 10th [place] [address] OncologistMedical Oncology03/31/23 Ron Ruano DO [address] [facility] 1 [place] [address] Obstetrics & Gynecology04/06/23 Dolores Johnson, BREAD OVEN OPERATOR-RETAIL WIRELESS SALES REPRESENTATIVE [address] [facility] 1 [place] [address] GastroenterologistCertified Nurse Practitioner02/10/24 Vinicius Gomes MD, PhD [address] [place] 8th [place] [address] OncologistMedical Oncology02/10/24 Diego Apodaca MD [address] [place] [address] Gastroenterology02/16/24Team MemberRelationshipSpecialtyStart DateEnd Date Erin Whiteside, TASH [address] [facility] [place] [address] PCP - General03/10/23 Rodney Olivas MD Hematology03/19/22 Fletcher Coelho MD [address] [place] [address] CardiologistCardiovascular Disease10/07/22 Andreas Ortega MD, MPH [address] [place] 10th [place] [address] OncologistMedical Oncology03/31/23 Ron Ruano DO [address] [facility] 1 [place] [address] Obstetrics & Gynecology04/06/23 Dolores Johnson, BREAD OVEN OPERATOR-RETAIL WIRELESS SALES REPRESENTATIVE [address] [facility] 1 [facility] [place] [address] GastroenterologistCertified Nurse Practitioner02/10/24 Vinicius Gomes MD, PhD [address] [place] 8th [place] [address] OncologistMedical Oncology02/10/24 Diego Apodaca MD [address] [place] [address] Gastroenterology02/16/24Team MemberRelationshipSpecialtyStart DateEnd Date Erin Whiteside CNP [address] [facility] [place] [address] PCP - General03/10/23 Rodney Olivas MD Hematology03/19/22 Fletcher Coelho MD [address] [place] [address] CardiologistCardiovascular Disease10/07/22 Andreas Ortega MD, MPH [address] [place] [address]th [place] [address] OncologistMedical Oncology03/31/23 Ron Ruano DO [address] [facility] 1 [place] [address] Obstetrics & Gynecology04/06/23 Dolores Johnson, BREAD OVEN OPERATOR-RETAIL WIRELESS SALES REPRESENTATIVE [address] [facility] 1 [facility] [place] [address] GastroenterologistCertified Nurse Practitioner02/10/24 Vinicius Gomes MD, PhD [address] [place] 8th [place] [address] OncologistMedical Oncology02/10/24 Diego Apodaca MD [address] [place], [place] [address]CT E [facility] [address] [place] [address] Gastroenterology02/16/24Team MemberRelationshipSpecialtyStart DateEnd Date Erin Whiteside CNP [address] [facility] [place] [address] PCP - General03/10/23 Rodney Olivas MD Hematology03/19/22 Fletcher Coelho MD [address] [address] CardiologistCardiovascular Disease10/07/22 Andreas Ortega MD, MPH [address] [place] 10th [place] [address] OncologistMedical Oncology03/31/23 Ron Ruano DO [address] [facility] 1 [place] [address] Obstetrics & Gynecology04/06/23 Dolores Johnson APRN-RETAIL WIRELESS SALES REPRESENTATIVE [address] [facility] 1 [place] [address] GastroenterologistCertified Nurse Practitioner02/10/24 Vinicius Gmoes MD, PhD [address] [place] [address]th [place] [address] OncologistMedical Oncology02/10/24 Diego Apodaca MD [address] [place] [phone] Gastroenterology02/16/24Team MemberRelationshipSpecialtyStart DateEnd Date Erin Whiteside RETAIL WIRELESS SALES REPRESENTATIVE [address] [facility] [address] PCP - General03/10/23 Rodney Olivas MD Hematology03/19/22 Fletcher Coelho MD [address] [address] CardiologistCardiovascular Disease10/07/22 Andreas Ortega MD, MPH [address] [place] 10th [place] [address] OncologistMedical Oncology03/31/23 Ron Ruano DO [address] [facility] 1 [facility] [place] [address] Obstetrics & Gynecology04/06/23 Dolores Johnson APRN-RETAIL WIRELESS SALES REPRESENTATIVE [address] [facility] 1 [facility] [place] [address] GastroenterologistCertified Nurse Practitioner02/10/24 Vinicius Gomes MD, PhD [address] [place] [address]th [place] [address] OncologistMedical Oncology02/10/24 Diego Apodaca MD [facility] [address] [facility] [address] [place] [address] Gastroenterology02/16/24Team MemberRelationshipSpecialtyStart DateEnd Date Erin Whiteside, RETAIL WIRELESS SALES REPRESENTATIVE [address] [facility] [place] [address] PCP - General03/10/23 Rodney Olivas MD Hematology03/19/22 Fletcher Coelho MD [address] [address] CardiologistCardiovascular Disease10/07/22 Andreas Ortega MD, MPH [address] [place] 10th [place] [address] OncologistMedical Oncology03/31/23 Ron Ruano DO [address] [facility] 1 [facility] [place] [address] Obstetrics & Gynecology04/06/23 Dolores Johnson, BREAD OVEN OPERATOR-RETAIL WIRELESS SALES REPRESENTATIVE [address] [facility] 1 [facility] [place] [address] GastroenterologistCertified Nurse Practitioner02/10/24 Vinicius Gomes MD, PhD [address] [place] [address]th [place] [address] OncologistMedical Oncology02/10/24 Diego Apodaca MD [address] [place] [address] [address] [place] [address] Gastroenterology02/16/24Team MemberRelationshipSpecialtyStart DateEnd Date Erin Whiteside, RETAIL WIRELESS SALES REPRESENTATIVE [address] [facility] [place] [address] PCP - General03/10/23 Rodney Olivas MD Hematology03/19/22 Fletcher Coelho MD [address] [address] CardiologistCardiovascular Disease10/07/22 Andreas Ortega MD, MPH [address] [place] 10th [place] [address] OncologistMedical Oncology03/31/23 Ron Ruano DO [address] [facility] 1 [place] [address] Obstetrics & Gynecology04/06/23 Dolores Johnson, BREAD OVEN OPERATOR-RETAIL WIRELESS SALES REPRESENTATIVE [address] [facility] 1 [place] [address] GastroenterologistCertified Nurse Practitioner02/10/24 Vinicius Gomes MD, PhD [address] [place] [address]th [place] [address] OncologistMedical Oncology02/10/24 Diego Apodaca MD [address] [place], [place] [address]CT E [facility] [address] [place] [address] Gastroenterology02/16/24Team MemberRelationshipSpecialtyStart DateEnd Date Erin Whiteside, RETAIL WIRELESS SALES REPRESENTATIVE [address] [facility] [place] [address] PCP - General03/10/23 Rodney Olivas MD Hematology03/19/22 Fletcher Coelho MD CardiologistCardiovascular Disease10/07/22 Andreas Ortega MD, MPH [address] [facility] 10th [place] [address] OncologistMedical Oncology03/31/23 Ron Ruano DO [address] [place] [address] [place] [address] Obstetrics & Gynecology04/06/23 Dolores Johnson, BREAD OVEN OPERATOR-RETAIL WIRELESS SALES REPRESENTATIVE [address] [place] [address] GastroenterologistCertified Nurse Practitioner02/10/24 Vinicius Gomes MD, PhD [address] [facility] 8th [place] [address] OncologistMedical Oncology02/10/24 Diego Apodaca MD [address] [place], [place] [address]CT [address] [address] Gastroenterology02/16/24 Team Status: Inactive Member Role Status Dates Erin Whiteside NP-C Primary Care Provider Active Start: March 21, 2025 End: March 21, 2025Paedith Whiteside NP-CAttending ProviderActiveStart: March 21, 2025 End: March 21, 2025 Scheduled Active and Recently Administ ered Medications (unrecognized section and content) Medication Order//05/2022 acetaminophen (TYLENOL) tablet 975 mg 975 mg, Oral, EVERY 8 HOURS, First dose on Wed05/26/22 at 1615, Until Discontinued, Maximum dose ofacetaminophen is 4000 mg from all sources in 24 hours. * 0700 (Given - Provider: Yadira Grier RN) * 1350 (Given - Provider: Alena Wade, RUPERT) * 2040 (Given - Provider: Craig Pagan, RN) * 0603 (Given - Provider: Craig Pagan, RN) * 1213 (Given - Provider: Yvrose Chamberlain, RUPERT) * 2134 (Given - Provider: Craig Pagan, RN) * 0613 (Given - Provider: Craig Pagan, RN) * 1400 (Canceled Entry - Provider: System Discharge - Comment: Automatically canceled at discontinue of medication order) Enoxaparin Sodium (LOVENOX) injection 40 mg (COMPLETED) 40 mg, Subcutaneous, EVERY 24 HOURS, 1 dose, First dose (after last modification) on Wed05/27/22 [id number], , Indications: DVT/PE prophylaxis * 1847 (Given - Provider: Alena Wade RN) Enoxaparin Sodium (LOVENOX) injection 40 mg 40 mg, Subcutaneous, EVERY 24 HOURS, First dose (after last reorder) on Wed05/28/22 at 1400, UntilDiscontinued, , Indications: DVT/PE prophylaxis * 1418 (Given - Provider: Tania Louis, RUPERT) * 1400 (Canceled Entry - Provider: System Discharge - Comment: Automatically canceled at discontinue of medication order) FLUoxetine (PROZAC) capsule 40 mg 40 mg, Oral, DAILY, First dose on Wed05/27/22 at 0900, Until Discontinued * 0904 (Not Given - Provider: Alena Wade RN - Reason: Patient/family refused - Comment: pt states she has not taken this med in 2 months at home) * 0917 (Not Given - Provider: Tania Louis RN - Reason: Patient/family refused) * 0714 (Not Given - Provider: Tania Louis RN - Reason: Patient/family refused) ibuprofen (MOTRIN) tablet 600 mg 600 mg, Oral, EVERY 6 HOURS, First dose on Wed05/26/22 at 1800, Until Discontinued, Give with food * 0001 (Given - Provider: Yadira Grier RN) * 0700 (Given - Provider: Yadira Grier RN) * 1350 (Given - Provider: Alena Wade RN) * 1847 (Given - Provider: Alena Wade RN) * 2324 (Not Given - Provider: Craig Pagan RN - Reason: Patient/family refused) * 0604 (Given - Provider: Craig Pagan RN) * 1213 (Given - Provider: Yvrose Chamberlain RN) * 1730 (Given - Provider: Tania Louis RN) * 0134 (Not Given - Provider: Craig Pagan RN - Reason: Patient/family refused) * 0613 (Given - Provider: Craig Pagan RN) * 1200 (Canceled Entry - Provider: System Discharge - Comment: Automatically canceled at discontinue of medication order) magnesium sulfate 1 g in dextrose 5% 100 mL premix IVPB (COMPLETED) 1 g, Intravenous, Administer over 60 Minutes, ONCE, 1 dose, On Wed05/27/22 at 0545 * 0708 ($$New Bag$$ - Provider: Yadira Grier RN) * 0708 (Rate/Dose Verify - Provider: Alena Wade RN) * 0708 (Rate/Dose Verify - Provider: Alena Wade RN) * 0709 (Rate/Dose Verify - Provider: Alena Wade RN) * 0809 (Stopped - Provider: Alena Wade RN) Magnesium Sulfate 4 g in sterile water 50 ml premix IVPB (COMPLETED) 4 g, Intravenous, Administer over 4 Hours, ONCE, 1 dose, On Wed05/28/22 at 0600 * 0606 ($$New Bag$$ - Provider: Craig Pagan RN) * 0607 (Rate/Dose Verify - Provider: Tania Louis RN) * 0613 (Rate/Dose Verify - Provider: Tania Louis, RUPERT) * 0613 (Rate/Dose Verify - Provider: Tania Louis RN) * 0709 (Rate/Dose Verify - Provider: Tania Louis, RN) * 0825 (Rate/Dose Verify - Provider: aTnia Louis, RN) * 1023 (Stopped - Provider: Tania Louis RN) OLANZapine (zyPREXA ZYDIS) disintegrating tablet 5 mg 5 mg, Oral, DAILY AT BEDTIME, First dose on 05/25/22 at 2100, Until Discontinued, Administer intact tablet to dissolve in mouth; do not split, crush, or chew. * 2039 (Not Given - Provider: Craig Pagan RN - Reason: Patient/family refused) * 2134 (Not Given - Provider: Craig Pagan RN - Reason: Patient/family refused) pantoprazole (PROTONIX) injection 40 mg (CANCELED) 40 mg, Intravenous, DAILY, First dose on 05/23/22 at 0900, Until Discontinued, Dilute each 40 mgvial with 10 mL of NS. All bolus doses, whether 40 mg or 80 mg, should be administered over at least two minutes., Indications: GERD * 0905 (Given - Provider: Alena Wade RN) pantoprazole (PROTONIX) tablet DR 40 mg 40 mg, Oral, DAILY, First dose on Eliana 05/28/22 at 0915, Until Discontinued, Swallow whole; do not crush or chew., Indications: GERD * 0916 (Given - Provider: Tania Louis RN) * 0744 (Given - Provider: Tania Louis RN) senna (SENOKOT) tablet 8.6 mg 8.6 mg, Oral, DAILY, First dose on Wed05/27/22 at 0900, Until Discontinued * 0905 (Given - Provider: Alena Wade RN) * 0916 (Given - Provider: Tania Louis RN) * 0744 (Given - Provider: Tania Louis RN) Medication Order bupivacaine (MARCAINE) 0.125% and fentaNYL (SUBLIMAZE) 4 mcg/mL epidural (CANCELED) Epidural, CONTINUOUS, Starting on Wed05/22/22 at 0745, Until Eliana 05/28/22 at 0912, To be managed and titrated by provider only. * 0304 (Rate/Dose Verify - Provider: Yadira Grier RN) * 0659 (Epidural [place] Volume/Shift Total - Provider: Yadira Grier RN - Comment: shift total:175 ml remaining) * 1105 (Rate/Dose Verify - Provider: Alena Wade RN) * 1122 (Rate/Dose Verify - Provider: Alena Wade RN) * 1459 (Rate/Dose Verify - Provider: Alena Wade, RN) * 1555 (Rate/Dose Verify - Provider: Alena Wade RN) * 1848 (Rate/Dose Verify - Provider: Alena Wade RN) * 1849 (Rate/Dose Verify - Provider: Alena Wade, RN) * 1910 (Epidural [place] Volume/Shift Total - Provider: Alena Wade RN - Comment: 100mL left incartridge) * 0100 (Epidural [place] Volume/Shift Total - Provider: Craig Pagan RN - Comment: 69ml remain) * 0307 (Rate/Dose Verify - Provider: Craig Pagan, RN) * 0709 (Rate/Dose Verify - Provider: Tania Louis RN) * 1030 (Stopped - Provider: Tania Louis RN) dextrose 5% and sodium chloride 0.45% 1,000 ml with potassium chloride 20 mEq premix IV solution (CANCELED) Intravenous, at 50 mL/hr, CONTINUOUS, Starting on Wed05/22/22 at 1315, Until Wed05/28/22 at 1453 * 0304 (Rate/Dose Verify - Provider: Yadira Grier RN) * 0308 (Paused - Provider: Yadira Grier RN) * 0309 (Restarted - Provider: Yadira Grier RN) * 0633 (Paused - Provider: Yadira Grier, RN) * 0633 (Restarted - Provider: Yadira Grier, RN) * 0659 (Rate/Dose Verify - Provider: Yadira Grier, RN) * 0909 ($$New Bag$$ - Provider: Alena Wade RN) * 1122 (Rate/Dose Verify - Provider: Alena Wade RN) * 1227 (Paused - Provider: lAena Wade, RN) * 1239 (Restarted - Provider: Alena Wade, RN) * 1459 (Rate/Dose Verify - Provider: Alena Wade, RN) * 1555 (Rate/Dose Verify - Provider: Alena Wade, RN) * 1846 (Canceled Entry - Provider: Alena Wade RN) * 1847 (Rate/Dose Change - Provider: Alena Wade, RN) * 1848 (Rate/Dose Verify - Provider: Alena Wade RN) * 1849 (Rate/Dose Verify - Provider: Alena Wade RN) * 0046 (Rate/Dose Verify - Provider: Craig Pagan RN) * 0048 (Rate/Dose Verify - Provider: Craig Pagan RN) * 0307 (Rate/Dose Verify - Provider: Craig Pagan RN) * 0613 (Rate/Dose Verify - Provider: Tania Louis RN) * 0709 (Rate/Dose Verify - Provider: Tania Louis RN) * 0943 (Rate/Dose Verify - Provider: Tania Louis RN) * 1215 (Rate/Dose Verify - Provider: Tania Louis RN) * 1354 (Rate/Dose Verify - Provider: Tania Louis RN) * 1502 (Stopped - Provider: Tania Louis RN) Medication Order benzocaine-menthol (CEPACOL) 15-3.6 MG per lozenge 1 lozenge 1 lozenge, Oral, NEEDED, Starting on Wed05/23/22 at 1241, Until Wed05/29/22 at 1402, Sore Throat, Max 8 lozenges/day Patient may self-administer. diphenhydrAMINE (BENADRYL) injection 25 mg(Linked Group 1) 25 mg, Intravenous, DAILY AT BEDTIME NEEDED, Starting on Wed05/22/22 at 1526, Until Wed05/29/22at 1402, Itching diphenhydrAMINE (BENADRYL) tablet 25 mg(Linked [...] Please contact team if dose is ineffective. * 0916 (Given - Provider: Tania Louis RN) oxyCODONE (ROXICODONE) tablet 5 mg(Linked Group 3) 5 mg, Oral, EVERY 4 HOURS NEEDED, Starting on Wed05/28/22 at 1239, Until Wed05/29/22 at 1402, Moderate Pain * 1302 (See Alternative - Provider: Yvrose Chamberlain RN) * 1731 (See Alternative - Provider: Tania Louis, RUPERT) * 2134 (See Alternative - Provider: Craig Pagan, RN) * 0425 (See Alternative - Provider: Craig Pagan, RN) * 0854 (See Alternative - Provider: Tania Louis, RUPERT) oxyCODONE HCl (ROXICODONE) tablet 10 mg(Linked Group 3) 10 mg, Oral, EVERY 4 HOURS NEEDED, Starting on Wed05/28/22 at 1239, Until Wed05/29/22 at 1402,Severe Pain * 1302 (Given - Provider: Yvrose Chamberlain RN) * 1731 (Given - Provider: Tania Louis, RUPERT) * 2134 (Given - Provider: Craig Pagan, RN) * 0425 (Given - Provider: Craig Pagan, RN) * 0854 (Given - Provider: Tania Louis, RUPERT) phenol (CHLORASEPTIC) 1.4 % oral spray 2 spray 2 spray, Mouth/Throat, NEEDED, Starting on Wed05/22/22 at 1554, Until Wed05/29/22 at 1402, SoreThroat, Patient may self-administer. sodium chloride 0.9% IV solution 250 mL Intravenous, at 20 mL/hr, NEEDED, Starting on Wed05/22/22 at 1526, Until Wed05/29/22 at 1402, Carrier Fluid - See Admin. Inst, 250mL 0.9NS to be used as carrier fluid for intermittent small volume or piggyback medication administration as needed. Infusion rate of the carrier fluid should be setat 20 mL/hr unless the rate as the intermittent medication is less than 20 mL/hr. For intermittent medications with a rate less than 20 mL/hr set the carrier fluid at that rate of the intermittent orpiggy back medication. * 0707 ($$New Bag$$ - Provider: Yadira Grier RN) * 0707 (Rate/Dose Verify - Provider: Alena Wade RN) * 0809 (Rate/Dose Verify - Provider: Alena Wade RN) * 1122 (Rate/Dose Verify - Provider: Alena Wade RN) * 1225 (Paused - Provider: Alena Wade RN) * 1239 (Restarted - Provider: Alena Wade RN) * 1312 (Paused - Provider: Alena Wade RN) * 1314 (Restarted - Provider: Alena Wade, RN) * 1459 (Rate/Dose Verify - Provider: Alena Wade RN) * 1555 (Rate/Dose Verify - Provider: Alena Wade, RN) * 1726 (Paused - Provider: Alena Wade RN) * 1731 (Restarted - Provider: Alena Wade RN) * 1848 (Rate/Dose Verify - Provider: Alena Wade RN) * 184 (Rate/Dose Verify - Provider: Alena Wade, RN) * 1958 (Paused - Provider: Craig Pagan, RN) * 2003 (Restarted - Provider: Craig Pagan, RN) * 2036 (Stopped - Provider: Craig Pagan, RN) * 2038 (Stopped - Provider: Craig Pagan, RN) Order Group 1: diphenhydrAMINE (BENADRYL) injection 25 mgJump to med 25 mg, Intravenous, DAILY AT BEDTIME NEEDED, Starting on Wed05/22/22 at 1526, Until Wed05/29/22at 1402, Itching Or diphenhydrAMINE (BENADRYL) tablet 25 [...] on Wed05/28/22 at 1239, Until Wed05/29/22 at 1402,Severe Pain Goals (unrecognized section and content) Goals [...] BASED ON THE PRIMARY CLINICAL RECORDS. [facility] [employer] [facility]. provides no warranty or guarantee of the accuracy or completeness of information in this document.
--- OUTSIDE RECORDS SUMMARY | 2025-06-15 19:27 | XMS_ITS | Patient Health Record ---
Author Organization [facility] in [place] Address [address] [place] [address] Care Team Providers Care Manager Of Procurement Name Role Phone Erin Sams Primary Care Provider Allergies Allergen (clinical drug ingredient) Drug/Non Drug Allergy documented on EMR Reaction Allergy Type Onset Date Status metronidazole Flagyl nausea and vomiting Drug Allergy ActivegabapentinGabapentinnausea, diarrheaDrug AllergyActive Results Component Value Reference Range Notes UA DIP NONAUTO WO MICRO (810 02) - IN OFFICE Reviewed date:03/22/2025 01:35:35 PM Interpretation: Performing Lab: Notes/Report: COLOR yellow CLARITYclearGLUCOSEnegBILIRUBINnegKETONEnegSPECIFIC GRAVITY1.409JOSPPcnbDV8 PROTEINtraceUROBILINOGENnegNITRITEnegLEUKOCYTE ESTERASEtraceUA RANDOM W or MICROSCOPIC Reviewed date:11/06/2024 02:23:17 PM Interpretation: Performing Lab: Notes/Report: [facility] ,Color UrineLT. YELLOWYELLOWClarity UrineCLEARCLEARSpecific [place] Urine1.020 1.005-1.025pH Urine6.05.0-9.0Protein UrineNEGATIVENEG/TRACE mg/dLGlucose Urine UANEGATIVENEGATIVE mg/dLBilirubin UrineNEGATIVENEGATIVEKetones UrineNEGATIVE NEGATIVE mg/dLBlood UrineNEGATIVENEGATIVENitrite UrineNEGATIVENEGATIVE Urobilinogen Urine0.20.2-1.0 EU/dLLeukocyte Esterase UrineTRACENEGATIVEWBC Urine 2-5NONE SEEN #/HPFRBC Urine0-20-2 #/HPFBacteria UrineSMALLNONE SEEN #/HPFMucus UrineTRACENONE SEENSquamous Epithelial Cell UrineFEWNONE/RARE #/LPFCrystals Seen?None SeenNone Seen #/HPFCast Seen?NONE SEENNONE SEEN #/LPFUrine Culture IndicatedALREADY ORDEREDPerforming Lab:see noteML - [facility] LBMR head/brain wo/w con Reviewed date:01/04/2025 10:34:08 AM Interpretation: Performing Lab: Notes/Report: Source Facility: [place] [address] Magnetic Resonance Report Signed Patient: ZAINAB MARTINEZ MR#: [id number] : 1995 Acct:[id number] Age/Sex: 29 / F ADM Date: 01/01/25 Loc: MRI Attending Dr: Jax Lane M.D. Ordering Physician: Jax Lane M.D. Date of Service: 01/01/25 Procedure(s): MR head/brain wo/w con Accession Number(s): [id number] cc: ERIN SAMS ; Jax Lane M.D. [place] [address] Patient Name: ZAINAB MARTINEZ MRN: [id number] date: 1995 Sex: F Assigned Patient Location: MRI Current Patient Location: Accession/Order Number: [id number] Exam Date: 01/02/2025 01:06 Report Date: 01/02/2025 [...] Bennett M.D. 01/02/2025 1:11 AM Dictation Location: [place] [address] Electronically authenticated by: [id number] Y Date: 01/02/2025 01:11 Dictated By: Jagdeep Bennett M.D. Signed By: 01/02/25 0114 DD/ 011 TD/TT: Label Folder:MR venography head wo con Reviewed date:01/04/2025 10:34:08 AM Interpretation: Performing Lab: Notes/Report: Source Facility: [place] [address] [place] [address] Magnetic Resonance Report Signed Patient: ZAINAB MARTINEZ MR#: [id number] : 1995 Acct:[id number] Age/Sex: 29 / F ADM Date: 01/01/25 Loc: MRI Attending Dr: Jax Lane M.D. Ordering Physician: Jax Lane M.D. Date of Service: 01/01/25 Procedure(s): MR venography head wo con Accession Number(s): [id number] cc: ERIN SAMS ; Jax Lane M.D. [place] [address] Patient Name: ZAINAB MARTINEZ MRN: [id number] date: 1995 Sex: F Assigned Patient Location: MRI Current Patient Location: Accession/Order Number: [id number] Exam Date: 01/02/2025 01:11 Report Date: 01/02/2025 01:13 At the request of: JAX LANE MD Procedure: MR venography head wo con MR venography head wo con 01/01/2025 4:08 PM SIGNS AND SYMPTOMS: progression of migraine with history of neuroendocrine tumor PROTOCOL: Axial 2-D nmxj-nd-xvtgui MRV with 3-D reconstructions COMPARISON: None FINDINGS: [...] Bennett M.D. 01/02/2025 1:13 AM Dictation Location: [place] [address] Electronically authenticated by: [id number] Y Date: 01/02/2025 01:13 Dictated By: Jagdeep Bennett M.D. Signed By: 01/02/25 0115 DD/ 0113 TD/TT: Label Folder:Urine Culture - [facility] Reviewed date:03/26/2025 01:01:28 PM Interpretation: Performing Lab: Notes/Report: [facility] ,Urine Culture - FRMCSee Below For Report Organism: 1.1 O:ESCCOL [place] Count Isolated Urine Culture - [facility] Antibiotic Interpretation ESTHER Status Testing performed at [facility] Urine Culture - [facility] Urine Culture - [id number] [place] [address] Organism: 1.1 O:ESCCOL [place] Count Isolated Urine Culture - [facility] Antibiotic Interpretation ESTHER Status Testing performed at [facility] Urine Culture - [facility] Urine Culture - FRMCSee Below For Report Organism: 1.1 O:ESCCOL [place] Count Isolated Urine Culture - [facility] Antibiotic Interpretation ESTHER Status Testing performed at [facility] Urine Culture - [facility] [facility] For Report Organism: 1.1 O:ESCCOL [place] Count Isolated Urine Culture - [facility] Antibiotic Interpretation ESTHER Status Testing performed at [facility] Urine Culture - [facility]rine Culture - [facility]>100,000 Organism: 1.1 O:ESCCOL [place] Count Isolated Urine Culture - [facility] Antibiotic Interpretation ESTHER Status Testing performed at [facility] Urine Culture - [facility] [facility] - [facility] For Report Organism: 1.1 O:ESCCOL [place] Count Isolated Urine Culture - [facility] Antibiotic Interpretation ESTHER Status Testing performed at [facility] Urine Culture - [facility] Urine Culture - FRAmikacin S F Organism: 1.1 O:ESCCOL [place] Count Isolated Urine Culture - [facility] Antibiotic Interpretation ESTHER Status Testing performed at [facility] Urine Culture - [facility] Urine Culture - FRAmoxicillin/Clavulanate S F Organism: 1.1 O:ESCCOL [place] Count Isolated Urine Culture - [facility] Antibiotic Interpretation ESTHER Status Testing performed at [facility] Urine Culture - [facility] Urine Culture - FRMCAmpicillin S F Organism: 1.1 O:ESCCOL [place] Count Isolated Urine Culture - [facility] Antibiotic Interpretation ESTHER Status Testing performed at [facility] Urine Culture - [facility] Urine Culture - FRMCAztreonam S F Organism: 1.1 O:ESCCOL [place] Count Isolated Urine Culture - [facility] Antibiotic Interpretation ESTHER Status Testing performed at [facility] Urine Culture - [facility] Urine Culture - FRMCCeftazidime S F Organism: 1.1 O:ESCCOL [place] Count Isolated Urine Culture - [facility] Antibiotic Interpretation ESTHER Status Testing performed at [facility] Urine Culture - [facility] Urine Culture - FRMCCeftazidime/Avibactam S F Organism: 1.1 O:ESCCOL [place] Count Isolated Urine Culture - [facility] Antibiotic Interpretation ESTHER Status Testing performed at [facility] Urine Culture - [facility] Urine Culture - FRMCCeftolozane/Tazobactam S F Organism: 1.1 O:ESCCOL [place] Isolated Urine Culture - [facility] Antibiotic Interpretation ESTHER Status Testing performed at [facility] Urine Culture - [facility] Urine Culture - FRMCCiprofloxacin S F Organism: 1.1 O:ESCCOL [place] Count Isolated Urine Culture - [facility] Antibiotic Interpretation ESTHER Status Testing performed at [facility] Urine Culture - [facility] Urine Culture - FRMCErtapenem S F Organism: 1.1 O:ESCCOL [place] Count Isolated Urine Culture - [facility] Antibiotic Interpretation ESTHER Status Testing performed at [facility] Urine Culture - [facility] Urine Culture - FRMCGentamicin S F Organism: 1.1 O:ESCCOL [place] Count Isolated Urine Culture - [facility] Antibiotic Interpretation ESTHER Status Testing performed at [facility] Urine Culture - [facility] Urine Culture - FRMCLevofloxacin S F Organism: 1.1 O:ESCCOL [place] Count Isolated Urine Culture - [facility] Antibiotic Interpretation ESTHER Status Testing performed at [facility] Urine Culture - [facility] Urine Culture - FRMeropenem S F Organism: 1.1 O:ESCCOL [place] Count Isolated Urine Culture - [facility] Antibiotic Interpretation ESTHER Status Testing performed at [facility] Urine Culture - [facility] Urine Culture - FRMCMeropenem/Vaborbactam S F Organism: 1.1 O:ESCCOL [place] Count Isolated Urine Culture - [facility] Antibiotic Interpretation ESTHER Status Testing performed at [facility] Urine Culture - [facility] Urine Culture - FRMCNitrofurantoin S F Organism: 1.1 O:ESCCOL [place] Count Isolated Urine Culture - [facility] Antibiotic Interpretation ESTHER Status Testing performed at [facility] Urine Culture - [facility] Urine Culture - FRMCTetracycline S F Organism: 1.1 O:ESCCOL [place] Count Isolated Urine Culture - [facility] Antibiotic Interpretation ESTHER Status Testing performed at [facility] Urine Culture - [facility] Urine Culture - FRMCTigecycline S F Organism: 1.1 O:ESCCOL [place] Count Isolated Urine Culture - [facility] Antibiotic Interpretation ESTHER Status Testing performed at [facility] Urine Culture - [facility] Urine Culture - FRMCTobramycin S F Organism: 1.1 O:ESCCOL [place] Count Isolated Urine Culture - [facility] Antibiotic Interpretation ESTHER Status Testing performed at [facility] Urine Culture - [facility] Urine Culture - FRMCAmpicillin/Sulbactam S F Organism: 1.1 O:ESCCOL [place] Count Isolated Urine Culture - [facility] Antibiotic Interpretation ESTHER Status Testing performed at [facility] Urine Culture - [facility] Urine Culture - FRMCCefazolin S F Organism: 1.1 O:ESCCOL [place] Count Isolated Urine Culture - [facility] Antibiotic Interpretation ESTHER Status Testing performed at [facility] Urine Culture - FR Urine Culture - FRMCCefepime S F Organism: 1.1 O:ESCCOL [place] Count Isolated Urine Culture - FR Antibiotic Interpretation ESTHER Status Testing performed at [facility] Urine Culture - [facility] Urine Culture - FRMCCeftriaxone S F Organism: 1.1 O:ESCCOL [place] Count Isolated Urine Culture - [facility] Antibiotic Interpretation ESTHER Status Testing performed at [facility] Urine Culture - FR Urine Culture - FRMCCefuroxime S F Organism: 1.1 O:ESCCOL [place] Count Isolated Urine Culture - [facility] Antibiotic Interpretation ESTHER Status Testing performed at [facility] Urine Culture - [facility] Urine Culture - FRMCPiperacillin/Tazobactam S F Organism: 1.1 O:ESCCOL [place] Count Isolated Urine Culture - [facility] Antibiotic Interpretation ESTHER Status Testing performed at [facility] Urine Culture - [facility] Urine Culture - FRMCTrimethoprim/Sulfa S F Organism: 1.1 O:ESCCOL [place] Count Isolated Urine Culture - [facility] Antibiotic Interpretation ESTHER Status Testing performed at [facility] Urine Culture - [facility] Performing Lab:see note SEE REPORT - Director Of Occupational Health Id information not found for OBX-specific creative services producer legend - [facility] LB MR lumbar spine wo con Reviewed date:08/29/2024 01:02:07 PM Interpretation: Performing Lab: Notes/Report: Source Facility: [place] [address] Magnetic Resonance Report Signed Patient: ZAINAB MARTINEZ MR#: [id number] : 1995 Acct:[id number] Age/Sex: 29 / F ADM Date: 08/23/24 Loc: MRI Attending Dr: ERIN SAMS Ordering Physician: ERIN SAMS Date of Service: 08/23/24 Procedure(s): MR lumbar spine wo con Accession Number(s): [id number] cc: ERIN SAMS [place] [address] Patient Name: ZAINAB MARTINEZ MRN: [id number] date: 1995 Sex: F Assigned Patient Location: MRI Current Patient Location: MRI Accession/Order Number: [id number] Exam Date: 08/23/2024 12:45 Report Date: 08/23/2024 [...] M.D. Signed By: 08/23/241836 DD/ 33 TD/TT: Label Folder:Marc STALLWORTH HPV,Age Gdln Reviewed date:08/28/2024 10:36:57 PM Interpretation: Performing Lab: Notes/Report: BRUSH-SPATULA CERVIX ENDOCERVIX [facility] ,Age Gdln ACOG TestingNote. Source.............Cervix;Endocervix FLAG LEGEND: L-Low Normal,H-High Normal,LL-Alert Low,HH-Alert High Clinician Provided Cytology Information Performed at: [facility] [place]ae [facility] [place]... TESTS RESULT FLAG UNITS REF [facility] No. of containers..01 ThinPrep Vial Dina Jaimes MD, [address] [place] [address], [place] [address] 01 =G [facility] <-Panic Low,>-Panic High,A-Abnormal,AA-Critical Abnormal IGP, rfx Aptima HPV ASCUNote. occur. cancer. Both false-positive and false-negative reports do [address] [place] [address], [place] [phone] The HPV DNA reflex criteria were not met with this specimen Performed at: - [facility] L-Low Normal,H-High Normal,LL-Alert Low,HH-Alert High [address] [place] [address], [place] [address] NEGATIVE FOR INTRAEPITHELIAL LESION OR MALIGNANCY. uterine cervix. It is not a diagnostic procedure and [address] [place] [address], [place] [phone] Financial Consultant: Dina Jaimes MD, Phone: [phone] detection of premalignant and malignant conditions of the TESTS RESULT FLAG UNITS REF [facility] Satisfactory for evaluation. No endocervical component is identified. <-Panic Low,>-Panic High,A-Abnormal,AA-Critical Abnormal The Pap smear is a screening test designed to aid in the Dina Jaimes MD, Specimen adequacy: 02 . 02 02 [facility] [place] Note: Note 02 should not be used as the sole means of detecting cervical . 02 the use of an image guided system. FLAG LEGEND: DIAGNOSIS: 02 Performed at: This liquid based ThinPrep(R) pap test was screened with Eula Ramesh [employer] Sales Representative (ASCP) result therefore, no HPV testing was performed. Performed by: 02 Performed at: =G - [facility] [place] Test Methodology: Note 02 Financial Consultant: Dina Jaimes MD, Phone: [phone] Performing Lab:see noteLC - [facility] LBXR lumbar spine 2-3V Reviewed date:07/21/2024 02:59:51 PM Interpretation: Performing Lab: Notes/Report: Source Facility: [place] [address] XRay Report Signed Patient: ZAINAB MARTINEZ MR#: [id number] : 1995 Acct:[id number] Age/Sex: 29 / F ADM Date: 07/18/24 Loc: RAD Attending Dr: ERIN SAMS Ordering Physician: ERIN SAMS Date of Service: 07/18/24 Procedure(s): XR lumbar spine 2-3V Accession Number(s): [id number] cc: ERIN SAMS [address] [address] Patient Name: ZAINAB MARTINEZ MRN: [id number] date: 1995 Sex: F Assigned Patient Location: [employer] Current Patient Location: Accession/Order Number: [id number] Exam Date: 07/18/2024 15:39 Report Date: 07/20/2024 [...] Signed By: 07/20/24 1135 DD/ 1133 TD/TT: Label Folder:UA RANDOM W or MICROSCOPIC Reviewed date:03/22/2025 01:35:35 PM Interpretation: Performing Lab: Notes/Report: [facility] ,Color UrineORANGEYELLOWClarity UrineCLEARCLEARSpecific [place] Urine1.025 1.005-1.025pH Urine5.55.0-9.0Protein UrineTRACENEG/TRACE mg/dLGlucose Urine UA 100NEGATIVE mg/dLBilirubin UrineNEGATIVENEGATIVEKetones UrineNEGATIVENEGATIVE mg/dLBlood UrineLARGENEGATIVENitrite UrinePOSITIVENEGATIVEUrobilinogen Urine0.2 0.2-1.0 EU/dLLeukocyte Esterase UrineSMALLNEGATIVEWBC Mvnzi69-56NTLS SEEN #/HPF RBC Urine2-50-2 #/HPFBacteria UrineSMALLNONE SEEN #/HPFMucus UrineTRACENONE SEEN Squamous Epithelial Cell UrineFEWNONE/RARE #/LPFCrystals Seen?None SeenNone Seen #/HPFCast Seen?NONE SEENNONE SEEN #/LPFUrine Culture IndicatedALREADY ORDERED Performing Lab:see noteML - [facility] LBUS pelvis w/ transvaginal Reviewed date:11/06/2024 10:38:04 AM Interpretation: Performing Lab: Notes/Report: Source Facility: [facility]-[address] [place] [address] Ultrasound Report Signed Patient: ZAINAB MARTINEZ MR#: [id number] : 1995 Acct:[id number] Age/Sex: 29 / F ADM Date: 11/03/24 Loc: Attending Dr: ERIN SAMS Ordering Physician: ERIN SAMS Date of Service: 11/03/24 Procedure(s): US pelvis w/ transvaginal Accession Number(s): [id number] cc: EIRN SAMS [place] [address] Patient Name: ZAINAB MARTINEZ MRN: [id number] date: 1995 Sex: F Assigned Patient Location: Current Patient Location: [place] Accession/Order Number: [id number] Exam Date: 11/03/2024 21:12 Report Date: 11/03/2024 [...] Pedro Joseph M.D.11/03/2024 9:15 PM Dictation Location: [place] [address] Electronically authenticated by: [id number] Y Date: 11/03/2024 21:15 Dictated By: Pedro Joseph D.O. Signed By: 11/03/242117 DD/ 14 TD/TT: Label Folder:Urine Culture - [facility] Reviewed date:11/06/2024 02:23:24 PM Interpretation: Performing Lab: Notes/Report: [facility] ,Urine Culture - [facility]MCSee Below For Report >100,000 colonies/ml mixed Urine Culture - [facility] Urine Culture - FRMCbacterial skin contaminants >100,000 colonies/ml mixed Urine Culture - [facility] Urine Culture - [facility]2 Days >100,000 colonies/ml mixed Urine Culture - [facility] Urine Culture - [facility] >100,000 colonies/ml mixed Urine Culture - [facility] Urine Culture - [facility]MCTesting performed at [facility] >100,000 colonies/ml mixed Urine Culture - FR Urine Culture - [id number] [place] [address] >100,000 colonies/ml mixed Urine Culture - [facility] Performing Lab:see noteML - [facility] LB Reason For Referral No Information Medications Medication SIG (Take, Route, Frequency, Duration) Notes Start Date End Date Status Latuda 20 MG 1 tablet in the evening with nida d Orally Once a day ActiveDexcom G7 Spinning And Winding Supervisor -as /10/2025ActiveAlbuterol Sulfate HFA 108 (90 Base) MCG/ACT1 puff as needed Inhalation every 4 hrs4ActiveNurtec 75 MGOral; Duration: 10 DaysPRNActiveDexcom G7 Sensor -as directed; Duration: 28 days5ActivelamoTRIgine 100 MG1 tablet Orally daily; Duration: 90 days 5ActiveEmgality 120 MG/MLINJECT 120MG SUBCUTANEOUSLY ONCE EVERY 30 DAYS Subcutaneous; Duration: 30 DaysActive Immunizations Vaccine Route Administration Date Status Eugenie Oquendo Pfizer Syringe Pre -Filled 30 mcg/0.3 mL Unknown 05/18/2025 Administered Flu, FluLaval (31603) 6 mos and older, single-dose syringe()Unknown 05/18/2025dministered Social History Tobacco Use: Social History Observation Description Date Details (start date - stop date) Never Smoker NA - NA Tobacco Use/Smoking Question Answer Notes Patient is a nonsmoker AUDIT-C (Standard) Question Answer Notes Did you have a drink containing alcohol in the p ast year? No Wibasd8DxvbzfgwxlodjyMhyvgist Problems Problem Type SNOMED Code ICD Code Onset Dates Problem Status W/U Status Risk Notes Problem Cholelithiasis witho ut obstruction (45168568) Calculus of gallbladder without cholecystitis without obstruction (K80.20) ActiveconfirmedProblemVitamin D deficiency (13799328)Vitamin D deficiency, unspecified (E55.9)ActiveconfirmedProblemIron deficiency (31738162)Iron deficiency (E61.1)ActiveconfirmedProblemBorderline personality disorder (18295383)Borderline personality disorder (F60.3)ActiveconfirmedProblemFatty liver (716685376)Fatty (change of) liver, not elsewhere classified (K76.0)Active confirmedProblemFibromyalgia (658274524)Fibromyalgia (M79.7)Activeconfirmed ProblemTachycardia (0472131)Tachycardia (R00.0)ActiveconfirmedProblemChronic fatigue syndrome (10156028)Chronic fatigue syndrome with fibromyalgia (R53.82) ActiveconfirmedProblemLeg pain (09292307)Leg pain (M79.606)Activeconfirmed ProblemSciatica (10551198)Sciatica (M54.30)ActiveconfirmedProblemHypoglycemia (789426014)Hypoglycemia (E16.2)ActiveconfirmedProblemPolyarthralgia (51865008) Polyarthralgia (M25.50)ActiveconfirmedProblemRaised antinuclear antibody (909207548)HUNTER positive (R76.8)ActiveconfirmedProblemBipolar 2 disorder (87893696)Bipolar 2 disorder (F31.81)ActiveconfirmedProblemHyperinsulinemia (43592071)Hyperinsulinemia (E16.1)ActiveconfirmedProblemMixed anxiety and depressive disorder (667520775)Anxiety and depression (F41.9)Activeconfirmed ProblemAtypical squamous cells of undetermined significance on cervical Papanicolaou smear (080982127)ASCUS of cervix with negative high risk HPV (R87.610)ActiveconfirmedProblemNeuroendocrine carcinoma (749694112) Neuroendocrine carcinoma (C7A.8)ActiveconfirmedProblemBreast lump (08488666) Breast lump in female (N63.0)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 fatigue syndrome (disorder) (97008983)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 Vital Signs Temperature 98.6 degrees Fahrenheit 11/02/2024 Blood pressure yyzchfsjg10 mm Hg06/11/20252413Jmtypx91 in06/11/2025lood pressure cjrpfcqo285 mm Hg06/11/20257503Bkctfa553 lbs108/11/2024BMI29.66 kg/m206/11/2025 Procedures Procedure Date Ordered Date Performed Result Body Sit e CARDIO Stress Test - Treadmill Exercise 06/11/20 25 N/A Encounters Encounter Location Date Provider Diagnosis [facility] [address] [place] [address] 07/17/2024 Erinnimo Sams Back pain M54.9 [facility] [address] [place] [address] 11/02/2024 Erinnimo Sams Pelvic pain in femal e R10.2 [facility] [address] [place] [address] 04/27/2025 Erin Stevo Hypoglycemia E16.2 a nd Bipolar 2 disorder F31.81 [facility] [address] [place] [address] 06/11/2025 Erin Stevo Chest pain R07.9 and Left arm pain M79.602 [facility] [address] [place] [address] 07/21/2024 Erinnimo Sams Sciatica M54.30 [facility] [address] [place] [address] 08/25[facility]2024 [facility] [place] [facility] [place] [address] 09/01/2024Pamela [facility] [place] [place] [address]/Pamela [facility] [address] [place] [place] [address]/Pamela CramerFrequency R35.0[facility] [place] [place] [address] 03/21/2025Pamela CramerUTI (urinary tract infection) N39.0[facility] [place] [place] [address]/10/2024Pamela [facility] [place] [place] [address] 03/26/2025Pamela [facility] [place] [place] [address]/03/2025[facility]ela [facility] [facility] [address] [place] [place] [address]/Pamela CramerBipolar 2 disorder F31.81 Assessments Encounter Date Diagnosis (ICD Code) Assessment Notes Treatment Notes Treatment Clinical Notes Section Notes 07/17/2024 Back pain (ICD-10 - M54.9) 11/02/2024Pelvic pain in female (ICD-10 - R10.2)fu OBGYN with US results 04/27/2025Hypoglycemia (ICD-10 - E16.2)consistent meals and snacks with protein 04/27/2025ipolar 2 disorder (ICD-10 - F31.81)06/11/2025hest pain (ICD-10 - R07.9)06/11/2025Left arm pain (ICD-10 - M79.602)07/21/2024Sciatica (ICD-10 - M54.30)11/06/2024Frequency (ICD-10 - R35.0)03/21/2025UTI (urinary tract infection) (ICD-10 - N39.0)05/02/2025ipolar 2 disorder (ICD-10 - F31.81) Plan Of Treatment Pending Test Test Name Order Date CMP (COMPLETE METABOLIC PANEL) UA (URINALYSIS, COMPLETE) 01/11/2024 UA (URINALYSIS, COMPLETE) 11/02/2024 UA (URINALYSIS, COMPLETE) 01/14/2024 UA (URINALYSIS, COMPLETE) 11/06/2024 UA (URINALYSIS, COMPLETE) 03/21/2025 CULTURE, URINE w SENSITIVITY 11/06/2024 CULTURE, URINE w SENSITIVITY 01/11/2024 CULTURE, URINE w SENSITIVITY 01/14/2024 IRON, TOTAL 12/10/2022 CBC WITH DIFF (EXP 05/2025) 12/10/2022 VITAMIN D, 25 LEVEL (TOTAL) 12/10/2022 XR Lumbar Spine (2-3 views) * 10/08/2023 CT Abdomen and Pelvis w/contrast * 12/16 MRI Lumbar Spine w/o contrast 07/21/2024 Urine Culture 03/21/2025 Urine Culture 11/02/2024 CARDIO Stress Test - Treadmill Exercise 06/11/2025 C DIFF TOX PCR STOOL 10/06/2023 GI PANEL (PCR) 03/02/2023 STOOL CULTURE 10/06/2023 URINE MICROSCOPIC ONLY 03/21/2025 US ABD 02/18/2023 US PELVIS AND TRANSVAG 11/02/2024 MM diagnostic mammo BI 03/24/2024 BI US BREAST COMPLETE BILATERAL 03/27/20 URINALYSIS MICROSCOPIC 01/14/2024 URINALYSIS MICROSCOPIC 11/06/2024 URINALYSIS MICROSCOPIC 01/11/2024 US SOFT TISSUE LIMITED AREA 06/11/2025 Insurance Providers Payer Name Payer Address Payer Phone Subscriber Number Group Number Insured Name Patient Relationship to Insured Coverage Start Date Coverage End Date [employer] [place] [address] [place] [address] [id number] Zainab Martinez Self - patient is the [...] and depression F41.9 Surgical History Surgery Date(Month/Year) Dr. Bria Mora 02/03/22 Hemicolectomy, RT 2021 Partial Small intestine removal 2021 Lymph nodes resection from abd 2021 08/2023 Hospitalization History Reason Date(Month/Year) 08/2023 see above
[2025-06-15 19:35] LABS: Hematocrit 36.5 % (36.0-48.0); Hemoglobin 12.1 g/dL (12.0-16.0); Immature Granulocytes Abs Auto 0.02 10^3/uL (0.00-0.03); Immature Granulocytes Pct Auto 0.3 % (0.0-0.5); Lymphocytes Absolute Auto 2.4 10^3/uL (1.2-3.8); Mean Corpuscular HGB Conc 33.2 g/dL (29.9-35.2); Mean Corpuscular Hemoglobin 28.5 pg (26.7-34.0); Mean Corpuscular Volume 86.1 fL (81.0-99.0); Platelet Count 319 10^3/uL (150-450); Red Blood Count 4.24 10^6/uL (4.20-5.40); White Blood Count 7.3 10^3/uL (4.0-11.0)
[2025-06-15] MEDS: 0.9 % SODIUM CHLORIDE 1,000 ML 1000 ML IV (19:42)
[2025-06-15 19:44] LABS: Glucose Urine UA NEGATIVE (NEGATIVE)
[2025-06-15 19:55] LABS: Cast Seen? NONE SEEN #/LPF (NONE SEEN); Crystals Seen? None Seen #/HPF (None Seen)
[2025-06-15 19:56] LABS: Urine Culture Indicated NO
--- NOTE | 2025-06-15 19:56 | ED.GENADUL1 ---
HPI HPI - General Adult General Chief complaint: Abdominal Pain Stated complaint: LEFT LOWER PAIN IN ABDOMIN Time Seen by Provider: 06/15/25 19:04 Source: patient Mode of arrival: walk-in Limitations: no limitations History of Present Illness HPI narrative: Patient is a 30-year-old female presenting to the emergency department for evaluation of left lower quadrant abdominal pain. Patient states her symptoms began approximately 30 hours ago. She states that the pain is a 4/10 when it started, and is now significantly worsening. She states the pain is consistent without periods of relief. She states she is now becoming nauseous and had 2 episodes of vomiting. She had a normal bowel movement approximately 4 hours ago. She states she had symptoms like this 3 years ago. At that time, she was having right lower quadrant tenderness, initially physicians thought she had appendicitis. However, during her surgery, they noted that she had intra-abdominal malignancy. She had a right sided hemicolectomy and was treated with intraperitoneal chemotherapy. She is currently in remission. She does deal with carcinoid syndrome and is prescribed octreotide. She denies history of bowel obstruction. She denies any vaginal bleeding, her last menstrual cycle was 2 weeks ago. She has no dysuria or hematuria. She denies history of endometriosis, ovarian cyst, or other gynecologic pathologies. Related Data Home Medications ?Medication ?Instructions ?Recorded ?Confirmed lamotrigine 25 mg tablet (Lamictal) 50 mg PO DAILY 11/10/23 06/15/25 galcanezumab-gnlm 120 mg/mL 120 mg subcut .qmonth 11/30/24 06/15/25 subcutaneous pen injector (Emgality Pen) lurasidone 20 mg tablet (Latuda) 20 mg PO DAILY 06/15/25 06/15/25 Previous Rx's ?Medication ?Instructions ?Recorded amoxicillin 875 mg-potassium 1 tab PO BID 7 days #14 tabs 06/15/25 clavulanate 125 mg tablet Allergies Allergy/AdvReac Type Severity Reaction Status Date / Time metronidazole (From Flagyl) AdvReac Severe Vomiting Verified 06/15/25 18:55 gabapentin AdvReac Mild Vomiting Verified 06/15/25 18:55 Opioid HPI Opioid Management Most Recent Opioid Data: Last Pain Scale 5 Today, 21:13 Last ED Pain Assessment Today, 21:13 Last MAR Pain Assessment Today, 19:57 Ur Phencyclidine Scrn, (NEGATIVE) Negative 09/25/23, 11:40 Review of Systems ROS Status of ROS 10 or more systems reviewed and unremarkable except as noted in history and below [facility] Medical History (Updated 06/15/25 @ 20:58 by Suhas Rogers DO) Spina bifida occulta ?Q76.0 - Spina bifida occulta (ICD-10) Low grade mucinous neoplasm of appendix (~2021) ?D37.3 - Neoplasm of uncertain behavior of appendix (ICD-10) Carcinoid syndrome ?E34.00 - Carcinoid syndrome, unspecified (ICD-10) Joint pain ?M25.50 - Pain in unspecified joint (ICD-10) Anemia ?D64.9 - Anemia, unspecified (ICD-10) Panic attacks ?F41.0 - Panic disorder [episodic paroxysmal anxiety] (ICD-10) Asthma ?J45.909 - Unspecified asthma, uncomplicated (ICD-10) Vertigo ?R42 - Dizziness and giddiness (ICD-10) Gastritis ?K29.70 - Gastritis, unspecified, without bleeding (ICD-10) Postoperative nausea and vomiting ?R11.2 - Nausea with vomiting, unspecified (ICD-10) ?Z98.890 - Other specified postprocedural states (ICD-10) Chest pain ?R07.9 - Chest pain, unspecified (ICD-10) Headache ?R51.9 - Headache, unspecified (ICD-10) Diarrhea ?R19.7 - Diarrhea, unspecified (ICD-10) Vaginal bleeding during ?O46.90 - Antepartum hemorrhage, unspecified, unspecified trimester (ICD-10) Elevated liver enzymes ?R74.8 - Abnormal levels of other serum enzymes (ICD-10) Abdominal pain ?R10.9 - Unspecified abdominal pain (ICD-10) Facial paresthesia ?R20.2 - Paresthesia of skin (ICD-10) Paresthesia of right arm ?R20.2 - Paresthesia of skin (ICD-10) Hypokalemia ?E87.6 - Hypokalemia (ICD-10) Migraines ?G43.909 - Migraine, unspecified, not intractable, without status migrainosus (ICD-10) Cancer ?C80.1 - Malignant (primary) neoplasm, unspecified (ICD-10) Back pain ?M54.9 - Dorsalgia, unspecified (ICD-10) Hx of gastroesophageal reflux (GERD) ?Z87.19 - Personal history of other diseases of the digestive system (ICD-10) Anxiety (Unknown) ?F41.9 - Anxiety disorder, unspecified (ICD-10) Depression (Unknown) ?F32.A - Depression, unspecified (ICD-10) Optimal cytoreduction achieved after multiple radical procedures (~05/2022) Neuroendocrine cancer (~01/2022) ?C7A.8 - Other malignant neuroendocrine tumors (ICD-10) Surgical History Hx of abdominal surgery (05/22/22) ?Z98.890 - Other specified postprocedural states (ICD-10) H/O abdominal surgery (05/22/22) ?Z98.890 - Other specified postprocedural states (ICD-10) H/O hemicolectomy ?Z90.49 - Acquired absence of other specified parts of digestive tract (ICD-10) H/O laparoscopy (~2021) ?Z98.890 - Other specified postprocedural states (ICD-10) H/O colonoscopy (05/03/24) ?Z98.890 - Other specified postprocedural states (ICD-10) History of esophagogastroduodenoscopy (EGD) (05/03/24) ?Z98.890 - Other specified postprocedural states (ICD-10) H/O section ?Z98.891 - History of uterine scar from previous surgery (ICD-10) H/O resection of small bowel ?Z90.49 - Acquired absence of other specified parts of digestive tract (ICD-10) H/O lymph node biopsy ?Z98.890 - Other specified postprocedural states (ICD-10) History of colon surgery ?Z98.890 - Other specified postprocedural states (ICD-10) History of cholecystectomy (~06/2023) ?Z90.49 - Acquired absence of other specified parts of digestive tract (ICD-10) History of appendectomy (~01/2022) ?Z90.49 - Acquired absence of other specified parts of digestive tract (ICD-10) Family History (Updated 02/15/25 @ 09:16 by Sola Hart) Mother Diabetes Family history of hypertension Father Kidney disease Asthma Aunt Breast cancer Other Family history of renal failure Social History (Updated 02/15/25 @ 09:13 by Sola Hart) Within the past year, how often did you have a drink containing alcohol: never Score interpretation: A score less than 3 is consistent with normal alcohol consumption. 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 EYES: Sclerae white. No conjunctival pallor. EARS, NOSE, THROAT: Moist oral mucosa. RESPIRATORY: Clear to auscultation bilaterally, no wheezes, crackles, or stridor, no use of accessory muscles CARDIOVASCULAR: Normal rate and regular rhythm. There is no S3, S4, murmur, rub. GASTROINTESTINAL: There is tenderness to palpation diffusely throughout the abdomen, mainly in the left lower quadrant. No rebound tenderness or guarding. Negative Doran sign. MUSCULOSKELETAL: No peripheral edema. NEUROLOGIC: Patient is awake and alert. Facies were symmetrical. Constitutional Vital Signs, click to edit/add: Last Vital Signs Temp 97.9 F 06/15/25 18:49 Pulse 84 06/15/25 18:49 Resp 20 06/15/25 18:49 BP 129/86 06/15/25 18:49 Pulse Ox 100 06/15/25 18:49 O2 Del Method Room Air 06/15/25 18:49 Course Vital Signs Vital signs: Vital Signs Temperature 97.9 F 06/15/25 18:49 Pulse Rate 84 06/15/25 18:49 Respiratory Rate 20 06/15/25 18:49 Blood Pressure 129/86 06/15/25 18:49 Pulse Oximetry 100 06/15/25 18:49 Oxygen Delivery Method Room Air 06/15/25 18:49 Temperature 97.9 F 06/15/25 18:49 Pulse Rate 84 06/15/25 18:49 Respiratory Rate 20 06/15/25 18:49 Blood Pressure 129/86 06/15/25 18:49 Pulse Oximetry 100 06/15/25 18:49 Oxygen Delivery Method Room Air 06/15/25 18:[address] [facility] Narrative Medical decision making narrative: Patient is a 30-year-old female presenting to the emergency department with a 1 day history of left lower quadrant abdominal pain, nausea, vomiting. Vital signs are within normal limits. She is afebrile and hemodynamically stable. Examination as noted above. Differential diagnosis includes colitis, partial small bowel obstruction, diverticulitis, ovarian pathologies, or other intra-abdominal pathologies. IV was established laboratory studies were obtained. CT abdomen/pelvis was ordered. She was treated with 1 L bolus of present, IV Zofran, and 0.[address] abdomen/pelvis independently reviewed and interpreted by myself and radiology demonstrated sigmoid diverticulosis without evidence of diverticulitis or other acute intra-abdominal pathologies. Laboratory studies were unremarkable. No significant electrolyte or metabolic derangement. No evidence of acute kidney injury. No anemia, leukocytosis, or thrombocytopenia. No transaminitis or hyperbilirubinemia. test negative. Urinalysis negative. On reevaluation, patient states her symptoms have significantly improved. She is tolerating p.o. Though there is no evidence of diverticulitis on CT, there is tenderness in the left lower quadrant. Therefore, I did elect to treat her for diverticulitis. She was given a dose of Augmentin here in the ED, and a prescription for Augmentin 875-125 mg twice daily x 7 days was sent to her pharmacy. She was instructed follow-up with her PCP for further care. Return precautions were given including any new or concerning symptoms. Patient understands and agrees to the plan. FINAL IMPRESSION: #Acute left lower quadrant abdominal pain, possible diverticulitis DISPOSITION: Discharged home CONDITION: Good Medical Records Medical records reviewed: Yes I reviewed the patient's medical records Lab Data Lab results reviewed: Yes I reviewed the patient's lab results Labs: Lab Results 06/15/25 06/15/25 Range/Units 19:25 19:28 WBC 7.3 (4.0-11.0) 10^3/uL RBC 4.24 (4.20-5.40) 10^6/uL Hgb 12.1 (12.0-16.0) g/dL Hct 36.5 (36.0-48.0) % MCV 86.1 (81.0-99.0) fL MCH 28.5 (26.7-34.0) pg MCHC 33.2 (29.9-35.2) g/dL RDW 12.9 (11.0-15.0) % Plt Count 319 (150-450) 10^3/uL MPV 9.4 L (9.5-13.5) fL Neut % (Auto) 54.1 (43.0-75.0) % Lymph % (Auto) 32.4 (20.5-60.0) % [place] % (Auto) 8.8 (1.7-12.0) % Eos % (Auto) 3.6 (0.9-7.0) % Baso % (Auto) 0.8 (0.2-2.0) % Neut # (Auto) 4.0 (1.4-6.5) 10^3/uL Lymph # (Auto) 2.4 (1.2-3.8) 10^3/uL [place] # (Auto) 0.6 (0.3-0.8) 10^3/uL Eos # (Auto) 0.3 (0.0-0.7) 10^3/uL Baso # (Auto) 0.1 (0.0-0.1) 10^3/uL Abs Immat Gran (auto) 0.02 (0.00-0.03) 10^3/uL Imm/Tot Granulo (auto) 0.3 (0.0-0.5) % Sodium 139 (136-145) mmol/L Potassium 3.9 (3.5-5.1) mmol/L Chloride 105 (98-107) mmol/L Carbon Dioxide 30.5 (21.0-32.0) mmol/L Anion Gap 7.4 BUN 6.0 L (7.0-18.0) mg/dL Creatinine 0.58 (0.55-1.02) mg/dL Est GFR ( Amer) >60 (>=60 mL/min/1.73m^2) Est GFR (Non-Af Amer) >60 (>=60 mL/min/1.73m^2) BUN/Creatinine Ratio 10.3 Glucose 91 (74-106) mg/dL Calcium 9.0 (8.5-10.1) mg/dL Total Bilirubin 0.2 (0.2-1.0) mg/dL AST 10 L (15-37) U/L ALT 25 (14-59) U/L Alkaline Phosphatase 57 (46-116) U/L Total Protein 7.1 (6.4-8.2) g/dL Albumin 3.9 (3.4-5.0) g/dL Globulin 3.2 g/dL Albumin/Globulin Ratio 1.2 Serum HCG, Qual Negative (NEGATIVE) Urine Color Lt. yellow (YELLOW) Urine Clarity Clear (CLEAR) Urine pH 6.0 (5.0-9.0) Ur Specific [place] 1.020 (1.005-1.025) Urine Protein Negative (NEG/TRACE) mg/dL Urine Glucose (UA) Negative (NEGATIVE) mg/dL Urine Ketones Negative (NEGATIVE) mg/dL Urine Occult Blood Negative (NEGATIVE) Urine Nitrite Negative (NEGATIVE) Urine Bilirubin Negative (NEGATIVE) Urine Urobilinogen 0.2 (0.2-1.0) EU/dL Ur Leukocyte Esterase Negative (NEGATIVE) Urine RBC 0-2 (0-2) #/HPF Urine WBC 0-2 A (NONE SEEN) #/HPF Ur Squamous Epith Cells Few A (NONE/RARE) #/LPF Urine Crystals None seen (None Seen) #/HPF Urine Bacteria Trace A (NONE SEEN) #/HPF Urine Casts None seen (NONE SEEN) #/LPF Urine Mucus None seen (NONE SEEN) Ur Culture Indicated? No Imaging Data CT scan - abdomen: Attestation: I personally reviewed and interpreted this imaging study as follows: Radiologist's impression: ITS Impressions Abdomen/Pelvis CT 06/15/25 19:16 IMPRESSION: Negative acute inflammatory process or bowel obstruction. Impression dictated by: José Antonio Courtney M.D. 06/15/2025 8:46 PM Dictation Location: [place] [address] Electronically authenticated by: [id number] Y Date: 06/15/2025 20:46 Discharge Plan Discharge Chief Complaint: Abdominal Pain Clinical Impression: Diverticulitis Patient Disposition: Home, Self-Care Time of Disposition Decision: 20:58 Condition: Good Mode of Transportation: Private Vehicle Prescriptions / Home Meds: New amoxicillin-pot clavulanate 875-125 mg tablet 1 tab PO BID 7 Days Qty: 14 0RF No Action lamotrigine [Lamictal] 25 mg tablet 50 mg PO DAILY Emgality Pen 120 mg/mL pen injector 120 mg SUBCUT .qmonth lurasidone [Latuda] 20 mg tablet 20 mg PO DAILY Rx Instructions: must administer with food (at least 350 calories) Print Language: Welsh Instructions: Diverticulitis (ED) Referrals: ELOISE SAMS [Primary Care Provider, Family Practice] - 1 week Discharge Date/Time: 06/15/25 21:14
[2025-06-15] MEDS: HYDROMORPHONE HCL 0.5 MG/0.5 ML SYRINGE IV (19:57)
[2025-06-15 19:59] LABS: Alanine Aminotransferase 25 U/L (14-59); Albumin Globulin Ratio 1.2; Albumin Level 3.9 g/dL (3.4-5.0); Alkaline Phosphatase 57 U/L (46-116); Anion Gap 7.4; Aspartate Amino Transferase 10 U/L (15-37); Blood Urea Nitrogen 6.0 mg/dL (7.0-18.0); Calcium 9.0 mg/dL (8.5-10.1); Carbon Dioxide 30.5 mmol/L (21.0-32.0); Chloride 105 mmol/L (98-107); Estimated GFR (African America >60 (>=60 mL/min/1.73m^2); Estimated GFR (Non-African Ame >60 (>=60 mL/min/1.73m^2); Globulin 3.2 g/dL; Glucose 91 mg/dL (74-106); Potassium 3.9 mmol/L (3.5-5.1); Sodium 139 mmol/L (136-145); Total Protein 7.1 g/dL (6.4-8.2)
[2025-06-15] MEDS: AMOXICILLIN/POT CLAV 875-125 MG TABLET 1 TAB PO (21:08)
== END 2025-06-15 21:14 | disposition home or self-care (01) ==
PROVIDERS: Emergency Provider Student in an Organized Health Care Education/Training Program; PCP Nurse Practitioner Family
DX: K57.32 Diverticulitis of large intestine without perforation or abscess without bleeding (principal); Z90.49 Acquired absence of other specified parts of digestive tract; E34.00 Carcinoid syndrome, unspecified; Z85.89 Personal history of malignant neoplasm of other organs and systems
CPT/HCPCS: 36415; 74177; 80053; 81001; 84703; 85025; 96361; 96374; 96375; 99285; J1171; J2405; Q9967

== ENCOUNTER 2025-06-18 12:52 | Outpatient (OUT) | payer OTHER, SELFPAY ==
--- OUTSIDE RECORDS SUMMARY | 2025-03-21 06:30 | XMS_ITS ---
Author Organization [facility] [place] Address [address] [facility] [place] [address] Care Team Providers Care Obstetrics/Gynecology Nurse Name Role Phone Erin Whiteside Primary Care Provider REASON FOR VISIT UTI Encounters Encounter Location Date Provider Diagnosis [facility] [address] [place] [address] 03/21/2025 Erin Whiteside Plan Of Treatment No Information Progress Notes * MICHELLE Zainab KDOB: [birth year] (30 yo F)Acc No.[id number]:03/21/2025 UNLOCKED PROGRESS NOTE Nurse Visit Patient: Zainab COLE :?Erin Whiteside ([facility]), CNPDOB:1995 ???Age:29 Y???Sex:FemaleDate:03/21/2025Phone:[phone]:[place], [place]-[id number] Subjective: * Chief Complaints: * 1 . UTI. * Medical History: Objective: * Vitals: Assessment: Plan: * Treatment: * * Electronic signature of Erin Whiteside NP, PRACTICE ADVISOR.CYLINDER PRESS [id number] on 06/18/2025 at 12:57 PM ESTSign off status: PendingVisit Status:?CANCPHONE (Cancelled Phone) * Provider: Virgil RIOS), CYLINDER PRESS FEEDER Date: 0 03/21/2025 Generated for Printing/Faxing/eTransmitting on:?06/18/2025 12:57 PM EST
--- OUTSIDE RECORDS SUMMARY | 2025-05-21 10:30 | XMS_ITS ---
Author Organization [facility] in [place] Address [address] [place] [address] Care Team Providers Care Infrastructure Engineer Name Role Phone Erin Whiteside Primary Care Provider [phone] REASON FOR VISIT radiating pain down armpit to back Encounters Encounter Location Date Provider Diagnosis [facility] [address] [place] [address] 05/21/2025 Erin Whiteside Plan Of Treatment No Information Progress Notes * Zainab MARTINEZ KDOB: [birth year] (30 yo F)Acc No.[id number]:05/21/2025 UNLOCKED PROGRESS NOTE Progress Note Patient: Zainab COLE :?Erin Whiteside (TTC), CNPDOB:1995 ???Age:30 Y???Sex:FemaleDate:05/21/2025Phone:[phone]:[place], [place] Subjective: * Chief Complaints: * 1 . Radiating pain down armpit to back. * Medical History: Objective: * Vitals: Assessment: Plan: * Treatment: * * Electronic signature of Erin Whiteside NP, FAMILY [email or web address] on 06/18/2025 at 12:57 PM ESTSign off status: PendingVisit Status:?N/S N/C (No Show/No Charge) * Provider: Virgil Whiteside (TTC), TUBE WORKER Date: 07/21/2024 Generated for Printing/Faxing/eTransmitting on:?06/18/2025 12:57 PM EST
--- OUTSIDE RECORDS SUMMARY | 2025-06-11 10:45 | XMS_ITS ---
Author Organization The [facility] in [place] Address [address] [place] [address] Care Team Providers Care Manufacturing Team Member Name Role Phone Stevo Erin Primary Care Provider [phone] Allergies Allergen (clinical drug ingredient) Drug/Non Drug [...] d Orally Once a day ActiveDexcom G7 Financing Analyst -as svhrcuqy22/10/2025ActiveAlbuterol Sulfate HFA 108 (90 Base) MCG/ACT1 puff [...] alcohol in the p ast year? No Evmvon5SqwvxtxadqbtykUxagorsw Vital Signs Weight 157 lbs 06/11/2025 Height 61 in 06/11/2025 Blood pressure systolic 120 mm Hg 06/11/20 25 Blood pressure diastolic 62 mm Hg 025 BMI 29.66 kg/m2 06/11/2025 Procedures Procedure Date Ordered Date Performed Result Body Sit e CARDIO Stress Test - Treadmill Exercise 06/11/20 25 N/A Encounters Encounter Location Date Provider Diagnosis [facility] [address] [facility] [place] [address] 06/11/2025 Erin Stevo Chest pain R07.9 and [...] Zainab MARTINEZ KDOB: [birth year] (30 yo F)Acc No.[id number]:06/11/2025 Progress Note Patient: Zainab COLE :?Erin Whiteside ([facility]), CNPDOB:1995 ???Age:30 Y???Sex:FemaleDate:06/11/2025Phone:[phone]:[address] [place], [place]Ilbhw In:03:34 PM ESTCheck Out:04:00 PM EST Subjective: [...] Problem List E61.1 Iron deficiency Modified On:01/13/2023 Status:rpzoonatzV39.3Borderline personality disorder Modified On:01/13/2023 Status:jghciefedE81.0Tachycardia Modified On:01/13/2023 Status:llaodwkewH04.606Leg pain Modified On:01/13/2023 Status:dggcuothaV64.8ANA positive Modified On:01/13/2023 Status:karbbhpuhX45.1Hyperinsulinemia Modified On:06/28/2023W/U Status:jaaytyuehM92.9Anxiety and depression Modified On:01/13/2023 Status:spgftdmaeS50.610ASCUS of cervix with negative high risk HPV Modified On:01/13/2023 Status:cbewqmioeH4F.8Neuroendocrine carcinoma Modified On:01/13/2023 Status:totodwvyyR15.0Breast lump in female Modified On:01/13/2023 Status:ehpsldqdmE22.0Neoplasm of appendix Modified On:01/13/2023 Status:xfscpcbsdL14.9Vitamin D deficiency, unspecified Modified On:12/10/2022 Status:mjywjicrxL00.20Calculus of gallbladder without cholecystitis without obstruction Modified On:02/22/2023 Status:oftiedeleI62.0Fatty (change of) liver, not elsewhere classified Modified On:02/22/2023 Status:hncpnvkhhI04.30Sciatica Modified On:10/08/2023 Status:xmbihbwcvW56.82Chronic fatigue syndrome with fibromyalgia Modified On:12/21/2024 Status:lniaetjacZ87.32Myalgic encephalomyelitis/chronic fatigue syndrome Modified On:12/21/2024 Status:aksnkkiueJ64.7Fibromyalgia Modified On:12/22/2024 Status:cmnbttlqhI40.50Polyarthralgia Modified On:12/22/2024 Status:isgajgkbyJ05.81Bipolar 2 disorder Modified On:04/27/2025 Status:glclpfchyH68.2Hypoglycemia Modified On:04/27/2025 Status:confirmed * Medical History: T [...] every 4 hrs , Taking Dexcom G7 Financing Analyst(Continuous Glucose Financing Analyst) - Device as directed , Taking Dexcom [...] * Electronically signed by Erin Whiteside NP, CHIEF EXECUTIVE OR MANAGING DIRECTOR.METAL MODEL MAKER.[id number] on 06/13/2025 at 08:55 AM ESTSign off status: CompletedVisit Status:?CHK (Check Out) true * Provider: Virgil Whiteside ([facility]), METAL MODEL MAKER Date: 08/11/2024 Generated for Printing/Faxing/eTransmitting on:?06/18/2025 12:57 PM EST History and Physical Notes * [...]
--- OUTSIDE RECORDS SUMMARY | 2025-06-18 12:57 | XMS_ITS | Encounter Summary ---
Author Organization [facility] Address [address] [place] [address] Care Team Providers Care Cane Splicer Name Role Phone Rodney Olivas MD Unavailable Cheikh Coelho MD Unavailable Unavailable Erin Whiteside TEXTILE ENGINEER Primary Care Provider + Lavern Paul MD, MPH Unavailable [phone] Ron Ruano DO Unavailable [phone] Dolores Johnson APRN-TEXTILE ENGINEER Unavailable [phone] Vinicius Gomes MD, PhD Unavailable [phone] Diego Apodaca MD Unavailable [phone] Encounter Details DateTypeDepartmentCare Team (Latest Contact Info)Epvfemfuzip75/01/2025Orders Only Genetics [address] [place] [address] Elayne Zavala, GC [address] [place] [address] Research study patient Social History Tobacco UseTypesPacks/DayYears UsedDateSmoking Tobacco: NeverSmokeless Tobacco: NeverAlcohol UseStandard Drinks/WeekCommentsNever0 (1 standard drink = 0.6 oz pure alcohol)last alchohol 2019; mixed drink rarelyDepressionAnswerDate Recorded PHQ-9 Total Score (Interpretation of Total Score 1-4 = Minimal depression; 5-9 = Mild depression; 10-14 = Moderate depression; 15-19 = Moderately severe depression)CommentsNoSex and Gender InformationValueDate RecordedSex Assigned at BirthNot on fileLegal RvbMqzyje70/15/2022 8:46 AM EDT Gender DchwlpeaHmkulu09/24/2025 9:47 AM ESTSexual SwlxinkotbdNtlqgddd77/24/2025 9:47 AM ESTdocumented as of this encounter Functional Status * Are you deaf or do you have serious difficulty hearing?AnswerDate of IznczhhaheKhnmxwJt90/04/2022 3:44 PM Yvrose Herrera RN * Are you blind or do you have serious difficulty seeing, even when wearing glasses?AnswerDate of ZdmbyxutulMhftkgJp26/04/2022 3:44 PM Yvrose Herrera RN * Do you have serious difficulty walking or climbing stairs (5 years or older)? AnswerDate of SsyzzrrvmpJicrbpAk87/04/2022 3:44 PM Yvrose Herrera RN * Do you have difficulty dressing or bathing (5 yrs or older)?AnswerDate of NbnslnnzrvGusfhsYw56/04/2022 3:44 PM Yvrose Herrera RN * Because of a physical, mental, or emotional condition, do you have difficulty doing errands alone such as visiting a doctor's office or shopping (5 yrs or older)?AnswerDate of GcueoiroclJwlratYe28/04/2022 3:44 PM Yvrose Herrera RN documented as of this encounter Mental Status * Because of a physical, mental, or emotional condition, do you have serious difficulty concentrating, remembering, or making decisions (5 yrs or older)? AnswerEntry SmlqYyornbRk31/04/2022 3:44 PM Yvrose Herrera RN documented in this encounter Plan of Treatment DateTypeDepartmentCare Team (Latest Contact Info)Wvyzmypqtvl44/19/2025 9:15 AM ESTTelemedicine [facility] [address] [place] [phone] Roge Yanes MD [address] [place] [address] 08/01/2025 11:45 AM ESTClinical Support Encounter Clinical Lab Branden Kang [address] [place] [address] [place] [phone] Lavern Paul MD, MPH [address] [place] [address] [place] [phone] 08/01/2025 1:00 PM ESTAppointment [facility] at [facility] [address] [place] [phone] Lavern Paul MD, MPH [address] [place] [address] [place] [phone] 08/07/2025 12:00 PM ESTOffice Visit Division of Medical Oncology [address] [place] [address] [place] [phone] Lavern Paul MD, MPH [address] [place] [address] [facility] [place] [phone] NameTypePriorityAssociated DiagnosesOrder [facility] Routine Research study patient Expected: 06/18/2025, Expires: 06/18/2026documented as of this encounter Visit Diagnoses Diagnosis Research study patient Reserved for inherently not codable concepts WITHOUT codable children documented in this encounter Additional Health Concerns AssessmentNoted TimePHQ-9 Depression Total Score: 2:28 PM EDT documented as of this encounter Care Teams Team MemberRelationshipSpecialtyStart DateEnd Erin Whiteside, TEXTILE ENGINEER [address] [place] [phone] PCP - General03/10/23 Rodney Olivas MD Hematology03/19/22 Cheikh Coelho MD CardiologistCardiovascular Disease10/07/22 Lavern Paul MD, MPH [address] [facility] [phone] OncologistMedical Oncology03/31/23 Ron Ruano DO [address] [facility] [address] Obstetrics & Gynecology04/06/23 Dolores Johnson, FISH PROCESSOR-TEXTILE ENGINEER [address] [facility] [place] [address] GastroenterologistCertified Nurse Practitioner02/10/24 Vinicius Gomes MD, PhD [address] [facility] [address] OncologistMedical Oncology02/10/24 Diego Apodaca MD [address] [place] [phone] Gastroenterology02/16/24documented as of this encounter
--- OUTSIDE RECORDS SUMMARY | 2025-06-18 12:57 | XMS_ITS | Encounter Summary ---
Author Organization [facility] Address [address] [place] [address] Care Team Providers Care Cost And Sales Record Supervisor Name Role Phone Rodney Olivas MD Unavailable Cheikh Coelho MD Unavailable Unavailable Erin Whiteside INFORMATICS COORDINATOR Primary Care Provider + Lavern Paul MD, MPH Unavailable [phone] Ron Ruano DO Unavailable [phone] Dolores Johnson APRN-INFORMATICS COORDINATOR Unavailable [phone] Vinicius Gomes MD, PhD Unavailable [phone] Diego Apodaca MD Unavailable [phone] Reason for Visit * ReasonOnset GikaAkuewiofGxvetbmfrpj13/20/2025 Encounter Details DateTypeDepartmentCare Team (Latest Contact Info)Qsnujybyrmv83/20/2025Telephone Neurology [facility] Outpatient Care [address] [address] Zeynep Murdock MA Appointment Social [...] InformationValueDate RecordedSex Assigned at BirthNot on fileLegal MyuSodxnp56/15/2022 8:46 AM EDT Gender TjutixnhMzcrid26/24/2025 9:47 AM ESTSexual VikoqkzjzumRuvchpgx90/24/2025 9:47 AM ESTdocumented as of this encounter Functional Status * Are you deaf or do you have serious difficulty hearing?AnswerDate of BgeatsskwzJjudfkIq63/04/2022 3:44 PM Yvrose Herrera RN * Are you blind or do you have serious difficulty seeing, even when wearing glasses?AnswerDate of SpneohnsrdGbrbgoSq92/04/2022 3:44 PM Yvrose Herrera RN * Do you have serious difficulty walking or climbing stairs (5 years or older)? AnswerDate of EbrjaamolfKcllppPa68/04/2022 3:44 PM Yvrose Herrera RN * Do you have difficulty dressing or bathing (5 yrs or older)?AnswerDate of GcazcwiuvkMydyciSx37/04/2022 3:44 PM Yvrose Herrera RN * Because of a physical, mental, or emotional condition, do you have difficulty doing errands alone such as visiting a doctor's office or shopping (5 yrs or older)?AnswerDate of KrlprzdjbaCggelsKx10/04/2022 3:44 PM Yvrose Herrera RN documented as of this encounter Mental Status * Because of a physical, mental, or emotional condition, do you have serious difficulty concentrating, remembering, or making decisions (5 yrs or older)? AnswerEntry UsnqGhhdqyXj71/04/2022 3:44 PM Yvrose Herrera RN documented in this encounter Miscellaneous Notes * Telephone Encounter - Zeynep Murdock MA - 06/07/2025 8:46 AM EST What is your name and relationship to the patient: (ie spouse, nurse, provider, etc...) patient Preferred call back number: [phone] What is your neurological diagnosis? Chronic migraine [...] you KE ???Thank you for calling [facility] Department of Neurology. You will receive a return call (or sofatronichart message, if you have sofatronichart) within 72 hours (or 3 business days if close to the weekend). If you feel that this is an urgent issue and needs immediate attention, it is recommended that you contact your primary care provider office or proceed to your nearest Urgent Care Center or Emergency Room for evaluation/treatment.?? documented in this encounter Plan of Treatment DateTypeDepartmentCare Team (Latest Contact Info)Upkthulnvcw98/19/2025 9:15 AM ESTTelemedicine Neurology Outpatient Care [address] [place] [phone] Roge Yanes MD [address] [place] [address] 08/01/2025 11:45 AM ESTClinical Support Encounter Clinical Lab Branden Ashburn [address] [place] 1st [place] [phone] Lavern Paul MD, MPH [address] [place] [address] [place] [address] 08/01/2025 1:00 PM ESTAppointment Imaging at [facility] [address] 2nd [place] [phone] Lavern Paul MD, MPH [address] [place] [address] [place] [phone] 08/07/2025 12:00 PM ESTOffice Visit Division of Medical Oncology [address] [place] [address] [place] [phone] Lavern Paul MD, MPH [address] [place] [address] [place] [address] documented as of this encounter Visit Diagnoses Not on filedocumented in this encounter Additional Health Concerns AssessmentNoted TimePHQ-9 Depression Total Score: 2:28 PM EDT documented as of this encounter Care Teams Team MemberRelationshipSpecialtyStart DateEnd Date Erin Whiteside, INFORMATICS COORDINATOR [address] [phone] PCP - General03/10/23 Rdoney Olivas MD Hematology03/19/22 Cheikh Coelho MD CardiologistCardiovascular Disease10/07/22 Lavern Paul MD, MPH [address] [place] [address] OncologistMedical Oncology03/31/23 Ron Ruano DO [address] [place] [address] Obstetrics & Gynecology04/06/23 Dolores Johnson, LPTA-INFORMATICS COORDINATOR [address] [place] [address] GastroenterologistCertified Nurse Practitioner02/10/24 Vinicius Gomes MD, PhD [address] [place] [address] OncologistMedical Oncology02/10/24 Diego Apodaca MD [address] [address] Gastroenterology02/16/24documented as of this encounter
--- OUTSIDE RECORDS SUMMARY | 2025-06-18 12:57 | XMS_ITS | Clinical Summary ---
Author Organization [facility] Address [id number] [address] [place] [address] Care Team Providers Care Parts Specialist Name Role Phone Erin Whiteside APRN-TECHNICIAN ANATOMIC PATHOLOGY Primary Care Provider Allergies Active AllergyReactionsCriticalityNoted DateCommentsGabapentinDiarrhea,GI Lhkiytjbtxk61/22/2023MetronidazoleGI Pvwkrtwbmyx36/10/2024 Medications MedicationSigDispense QuantityRefillsLast FilledStart DateEnd DateStatus FLUoxetine [...] DateDiagnosed DateArrhythmia of fetus affecting management of /20/2023Supervision of other high risk pregnancies, second trimester 07/07/2023Low grade mucinous neoplasm of zfhmawho12/04/2022Neuroendocrine neoplasm of cbexyhiq62/04/2022 Family History Medical HistoryRelationNameCommentsAsthmaFatherKhrisKidney diseaseFatherKhris Breast cancerMaternal [...] you get together with friends or relatives?Patient cnisegcp16/03/2022How often do you attend anglican or gnosticist services?Never02/18/2022o you belong to any clubs or organizations such as anglican groups, unions, fraternal or athletic groups, or school groups?No 02/18/2022How often do you attend meetings of the clubs or organizations you belong to?Patient htchgnoy14/03/2022re you , , , , never , or living with a partner?Pdazzpy1602/18/2022UDIT-C AnswerDate RecordedQ1: How often do you have [...] medical care, and heating?Somewhat hard02/18/2022 PHQ-2AnswerDate RecordedTotal Dzduq8963/03/2022[facility] [place] [facility] - Occupational Stress QuestionnaireAnswerDate [...] daily living?No02/18/2022 ChildcareAnswerDate RecordedDo problems getting child and adolescent psychiatrist make it difficult for you to work or study?No02/18/2022EmploymentAnswerDate RecordedDo you need help finding a local career center and/or a training program?No02/18/2022Hunger ScreeningAnswerDate RecordedWithin the past 12 months we worried whether our food would run out before we got money to buy more.Never True04/13/2024Food Insecurity - InabilityNot on file04/13/2024urpose - LifeAnswerDate RecordedI have a purpose and direction in my life.Somewhat Rbyzjfky88/03/2022Education AnswerDate RecordedWhat is the highest level of school you have completed or the highest degree you have received?Some college, no uivtqa1002/18/2022 CommentsNoSex and Gender InformationValueDate RecordedSex Assigned at BirthNot on fileLegal YqjWworwk46/20/2022 8:33 AM EDTGender IdentityNot on fileSexual OrientationNot on file Last Filed Vital Signs Vital SignReadingTime TakenCommentsBlood Ejnxayer856/6009 10:24 AM EDT Nymcp768904/13/2024 10:24 AM VVJQslahdpgoae73 ??C (96.8 ??F)06/18/2023 10:08 AM ESTRespiratory Zdiu6417 11:23 AM ESTOxygen Rppzzsiwfu02%06/18/2023 11:23 AM ESTInhaled Oxygen Concentration--Llxabq72.2 kg (157 lb)04/13/2024 10:24 AM TLPZjgnzl198.9 cm (5' 1 )04/13/2024 10:24 AM EDTBody Mass Index29.66004/13/2024 10:24 AM EDT Plan of Treatment Health MaintenanceDue DateLast DoneCommentsDepression Wusetdmct96/19/2009Pap Smear2018DTaP,Tdap and Td Vaccines (6 - Td or Tdap)/, 04/03/2002, 09/20/2000, Additional history existsCOVID-19 Vaccine ( season)/08/2020, 08/28/2020, 07/31/2020Influenza Fjnulvo0103/19/2025 04/28/2021dult BMI Nqgjryryf24/26/24599804/13/2024Tobacco Oogulzjdi43/27/2025 04/14/2024 Medical Devices Not on file Insurance [address] [place] [address] Care Teams Team MemberRelationshipSpecialtyStart DateEnd Date Erin Whiteside, SERVICE ORDER DISPATCHER CHIEF-TECHNICIAN ANATOMIC PATHOLOGY [address] [facility], [place] [address] PCP - GeneralFamily Medicine02/11/22
--- OUTSIDE RECORDS SUMMARY | 2025-06-18 12:57 | XMS_ITS | Clinical Summary ---
Author Organization [facility] [place] [address] Care Team Providers Care Can Conveyor Feeder Name Role Phone Doc, Misc COLLEGE FOOTBALL COACH-ONBOARDING SPECIALIST Primary Care Provider Unavail able Immunizations ImmunizationAdministration DatesNext DuePFIZER (purple cap) COVID-19, mRNA, LNP- S, 30mcg/0.3mL dose06/19/2021 Social History Tobacco UseTypesPacks/DayYears UsedDateSmoking Tobacco: Never Assessed CommentsUnknownSex and Gender InformationValueDate RecordedSex Assigned at Not on fileLegal KovFzwvlw29/28/2021 12:29 PM EDTGender IdentityNot on file Sexual [...] Teams Team MemberRelationshipSpecialtyStart DateEnd Date Doc, Misc, COLLEGE FOOTBALL COACH-ONBOARDING SPECIALIST [place] [address] PCP - XcijqmcRsnlzouwnd69/2/21
--- OUTSIDE RECORDS SUMMARY | 2025-06-18 12:57 | XMS_ITS | Clinical Summary ---
Author Organization [facility] Address [address] [place] [address] [place] [address] Care Team Providers Care Supervisor Mail Carriers Name Role Phone Rodney Olivas MD Unavailable Cheikh Coelho MD Unavailable Unavailable Erin Whiteside DEHAIRER Primary Care Provider + Lavern Paul MD, MPH Unavailable [phone] Ron Ruano DO Unavailable [phone] Dolores Johnson APRN-DEHAIRER Unavailable [phone] Vinicius Gomes MD, PhD Unavailable [phone] Diego Apodaca MD Unavailable [phone] Allergies Active AllergyReactionsCriticalityNoted NtbrFznhvjctIyaetogbpcrxk64/10/2024 GabapentinNausea Only10/07/2022 Medications MedicationSigDispense QuantityRefillsLast FilledStart DateEnd [...] Active Problems ProblemNoted DateDiagnosed DateObesity (BMI 30.0-34.9)3Carcinoid labncqkj88/16/2023Primary malignant neuroendocrine tumor of gariaxxf43/04/2022 Cancer Staging: Pathologic stage from 05/22/2022:Stage IVC(TX, N1, M1b) - Unsigned Encounters DateTypeDepartmentCare IebhYbrvspmnjea47/01/2025Orders Only Genetics [address] [place] [address] Elayne Zavala GC Research study qxxjcde3806/11/2025Telephone Division of Medical Oncology [address] [place] [address] [place] [address] Lavern Paul MD, MPH FMLA/Zrpxymexhu21/20/2025Telephone Neurology [facility] Outpatient Care [address] [address] Zeynep Murdock, KAYLA Appointmentfrom Last 3 Months Family History Medical [...] InformationValueDate RecordedSex Assigned at BirthNot on fileLegal EbzIxecgk54/15/2022 8:46 AM EDTGender Identity Ttsxin2309/11/2024 9:47 AM ESTSexual PvqlbgnglbiHtvatgro10/24/2025 9:47 AM EST Last Filed Vital Signs Vital SignReadingTime TakenCommentsBlood Bxtiibvi338/8607/01/2025 9:58 AM EDT Qbbbt2236 8:59 AM JXRDzssnvecjao65.2 ??C (98.9 ??F)11/09/2024 2:54 PM EDTRespiratory Jhuu66305 8:59 AM EDTOxygen Andzlzchqh56%12/21/2024 8:59 AM EDTInhaled Oxygen Concentration--Qrpwhf65.7 kg (151 lb 6.4 oz)12/21/2024 8:59 AM QWHZqalni267.9 cm (5' 1 )11/09/2024 2:54 PM EDTBody Mass Index28.61011/09/2024 2:54 PM EDT Plan of Treatment DateTypeDepartmentCare Team (Latest Contact Info)Sfqpwtknwdp76/19/2025 9:15 AM ESTTelemedicine Neurology Outpatient Care [address] [place] [address] Roge Yanes MD [address] 12th Floor [place], [place] [address] 08/01/2025 11:45 AM ESTClinical Support Encounter Clinical Lab [place] [address] [place] 1st [place] [address] Lavern Paul MD, MPH [address] [place] 10th [place] [address] 08/01/2025 1:00 PM ESTAppointment Imaging at [facility] [address] 2nd [place] [address] Lavern Paul MD, MPH [address] [place] 10th [place] [address] 08/07/2025 12:00 PM ESTOffice Visit Division of Medical Oncology [address] [place] [address] [place] [address] Lavern Paul MD, MPH [address] [place] [address] [place] [address] Health MaintenanceDue DateLast DoneCommentsHEPATITIS C VIRUS MVHLBUQYB1997 HPV VACCINE (2 - 2-dose series)HIV SCREENING DISCUSSION 2012CERVICAL CANCER SCREENING WMXJSMZRHA46/19/6681OEVLIOT93/27/2021 08/14/2010COVID-19 VACCINE ( season)5108/20/2020, 08/28/2020, 07/31/2020INFLUENZA VACCINE (#1)51HEP B VACCINECompleted 09/20/2000, 1997, 1997HPV VACCINE UKDYQpwswnazopho22/27/2011TDAP (ADULT)Aklimhfrl12/27/2011PNEUMOCOCCAL VACCINE SERIESAged OutNo longer eligible based on patient's age to complete this topic Insurance * Guarantor: Zainab MartinezAccount TypeRelation to PatientDate of BirthPhone Billing AddressPersonal/FotalnAfmb[address] [facility] [address] Care Teams Team MemberRelationshipSpecialtyStart DateEnd Date Erin Whiteside CNP [address] [place] [address] PCP - General03/10/23 Rodney Olivas MD Hematology03/19/22 Cheikh Coelho MD CardiologistCardiovascular Disease10/07/22 Lavern Paul MD, MPH [address] [place] [address] OncologistMedical Oncology03/31/23 Ron Ruano DO [address] [place] [address] Obstetrics & Gynecology04/06/23 Dolores Johnson, BORING MACHINE SET UP OPERATOR JIG-DEHAIRER [address] [place] [phone] GastroenterologistCersutter [facility] Nurse Practitioner02/10/24 Vinicius Gomes MD, PhD [address] [place] [phone] OncologistMedical Oncology02/10/24 Diego Apodaca MD [address] [place] [phone] Gastroenterology02/16/24
--- OUTSIDE RECORDS SUMMARY | 2025-06-18 12:57 | XMS_ITS ---
Author Organization [facility] Address [address] [place] [address] [place] [address] Care Team Providers Care Med Surg Rn Name Role Phone Rodney Olivas MD Unavailable Cheikh Coelho MD Unavailable Unavailable Erin Whiteside METALSMITH APPRENTICE Primary Care Provider + Lavern Paul MD, MPH Unavailable [phone] Ron Ruano DO Unavailable [phone] Dolores Johnson APRN-METALSMITH APPRENTICE Unavailable [phone] Vinicius Gomes MD, PhD Unavailable [phone] Diego Apodaca MD Unavailable [phone] Active Problems ProblemNoted DateDiagnosed DateObesity (BMI 30.0-34.9)3Carcinoid tbwutzbt46/16/2023Primary malignant neuroendocrine tumor of ncebjtte98/04/2022 Cancer Staging: Pathologic stage from 05/22/2022:Stage IVC(TX, N1, M1b) - Unsigned Current Treatment and Therapy Plans No current plan information found. Past Treatment and Therapy Plans Plan NameStart DateDiscontinue DateTreatment MedicationsDiscontinue ReasonPlan ProviderCyclesOP OCTREOTIDE LAR [id number] medications scheduled.Other - see commentLavern Paul MD, MPHTreatment not started Lifetime Dose Tracking * ChemicalLifetime DoseAutomatic EntryManual SzpecKarrvlrpc31.847 mg/m2 (90 mg) 50.847 mg/m2 (90 mg)0 mg/m2 (0 mg)
--- OUTSIDE RECORDS SUMMARY | 2025-06-18 12:57 | XMS_ITS | Encounter Summary ---
Author Organization [facility] Address [address] [place] [address] Care Team Providers Care Thermal Cutter Helper Name Role Phone Rodney Olivas MD Unavailable Cheikh Coelho MD Unavailable Unavailable Erin Whiteside AGRONOMY SUPERVISOR Primary Care Provider + Lavern Paul MD, MPH Unavailable [phone] Ron Ruano DO Unavailable [phone] Dolores Johnson APRN-AGRONOMY SUPERVISOR Unavailable [phone] Vinicius Gomes MD, PhD Unavailable [phone] Diego Apodaca MD Unavailable [phone] Reason for Visit * ReasonOnset DateCommentsFMLA/Hygookjgzn78/24/2025 Encounter Details DateTypeDepartmentCare Team (Latest Contact Info)Zngigfgelsv28/24/2025Telephone Division of Medical Oncology [address] [place] [address] [place] [address] Lavern Paul MD, MPH [address] [facility] [address] [place] [address] FMLA/Disability Social History Tobacco UseTypesPacks/DayYears UsedDateSmoking Tobacco: NeverSmokeless Tobacco: NeverAlcohol UseStandard Drinks/WeekCommentsNever0 (1 standard drink = 0.6 oz pure alcohol)last alchohol 2019; mixed drink rarelyDepressionAnswerDate Recorded PHQ-9 Total Score (Interpretation of Total Score 1-4 = Minimal depression; 5-9 = Mild depression; 10-14 = Moderate depression; 15-19 = Moderately severe depression)CommentsNoSex and Gender InformationValueDate RecordedSex Assigned at BirthNot on fileLegal VmzGtvyol41/15/2022 8:46 AM EDT Gender MbrzujwtTutlde78/24/2025 9:47 AM ESTSexual FfoznlopdhdKgiapjhy73/24/2025 9:47 AM ESTdocumented as of this encounter Functional Status * Are you deaf or do you have serious difficulty hearing?AnswerDate of SpfotlglpiIeptqwGp36/04/2022 3:44 PM Yvrose Herrera RN * Are you blind or do you have serious difficulty seeing, even when wearing glasses?AnswerDate of RbnfozxkwcNqmzjyMy85/04/2022 3:44 PM Yvrose Herrera RN * Do you have serious difficulty walking or climbing stairs (5 years or older)? AnswerDate of YgktoithphGhtsowUc93/04/2022 3:44 PM Yvrose Herrera RN * Do you have difficulty dressing or bathing (5 yrs or older)?AnswerDate of TpqeunkjcdDongsqRk94/04/2022 3:44 PM Yvrose Herrera RN * Because of a physical, mental, or emotional condition, do you have difficulty doing errands alone such as visiting a doctor's office or shopping (5 yrs or older)?AnswerDate of NkczwqbpexJtwmyhAm51/04/2022 3:44 PM Yvrose Herrera RN documented as of this encounter Mental Status * Because of a physical, mental, or emotional condition, do you have serious difficulty concentrating, remembering, or making decisions (5 yrs or older)? AnswerEntry CrvyRqhaksQq10/04/2022 3:44 PM Yvrose Herrera RN documented in this encounter Miscellaneous Notes * Telephone Encounter - Pinky Morales RN - 06/11/2025 2:44 PM EST Called patient. Informed patient we can fill out this form. 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 Daily nausea, abdominal pain, flushing and diarrhea [...] them in June 28 or sometime. Rohit meyer * Telephone Encounter - Lacey Stuart - 06/11/2025 2:30 PM EST Patient called in stating she need a medical statement for disability . Requesting a call back. documented in this encounter Plan of Treatment DateTypeDepartmentCare Team (Latest Contact Info)Zqgsktgccrv96/19/2025 9:15 AM ESTTelemedicine Neurology Outpatient Care [address] [place] [phone] Roge Yanes MD [address] [place] [address] 08/01/2025 11:45 AM ESTClinical Support Encounter Clinical Lab Branden Kang [address] [place] [address] [place] [phone] Lavern Paul MD, MPH [address] [place] [address] [place] [address] 08/01/2025 1:00 PM ESTAppointment Imaging at [facility] [address]nd [place] [phone] Lavern Paul MD, MPH [address] [place] [address] [place] [address] 08/07/2025 12:00 PM ESTOffice Visit Division of Medical Oncology [address] [place] [address] [place] [address] Lavern Paul MD, MPH [address] [place] [address] [place] [address] documented as of this encounter Visit Diagnoses Not on filedocumented in this encounter Additional Health Concerns AssessmentNoted TimePHQ-9 Depression Total Score: 2:28 PM EDT documented as of this encounter Care Teams Team MemberRelationshipSpecialtyStart DateEnd Erin Whiteside, AGRONOMY SUPERVISOR [address] [place] [phone] PCP - General03/10/23 Rodney Olivas MD Hematology03/19/22 Cheikh Coelho MD CardiologistCardiovascular Disease10/07/22 Lavern Paul MD, MPH [address] [place] [address] OncologistMedical Oncology03/31/23 Ron Ruano DO [address] [place] [address] Obstetrics & Gynecology04/06/23 Dolores Johnson APRN-AGRONOMY SUPERVISOR [address] [place] [address] GastroenterologistCertified Nurse Practitioner02/10/24 Vinicius Gomes MD, PhD [address] [place] [address] OncologistMedical Oncology02/10/24 Diego Apodaca MD [facility] [address] [place] [phone] Gastroenterology02/16/24documented as of this encounter
--- OUTSIDE RECORDS SUMMARY | 2025-06-18 12:57 | XMS_ITS | Clinical Summary ---
Author Organization [facility] Address [address] [place], [place] [address] Care Team Providers Care Livestock Auctioneer Name Role Phone Connor Giraldo MD Unavailable [phone] Social History Tobacco UseTypesPacks/DayYears UsedDateSmoking Tobacco: Never Assessed CommentsUnknownSex and Gender InformationValueDate RecordedSex Assigned at Not on fileLegal DxtKhnnrv76/04/2022 3:47 PM EDTGender IdentityNot on fileSexual OrientationNot on file Plan of Treatment Health MaintenanceDue DateLast DoneCommentsAnxiety Vlmettbyh01/19/2015Depression Dpfirhnfb58/19/2015HIV Ligbutunt31/19/2015Hepatitis C Sipshsrkw12/19/2015 DTaP,Tdap,Td Vaccine (1 - Tdap)2016Hepatitis B Vaccine (1 of 3 - 19+ 3- dose series)2016Cervical Cancer Bdptvyfgo25/19/2018HPV Vaccine (1 - 3-dose SCDM series)4Covid-19 Vaccine (2 - 2024- season)/08/2020 Influenza Vaccine (#1)2025 Insurance * Guarantor: Zainab SwiftAccount TypeRelation to PatientDate of BirthPhone Billing FbdovcrXggvwflkztGofm1995 [address] [place] [address] Care Teams Team MemberRelationshipSpecialtyStart DateEnd Connor Giraldo MD [address] [place] [address] [facility]08/29/24
--- OUTSIDE RECORDS SUMMARY | 2025-06-18 12:58 | XMS_ITS | Clinical Summary ---
Author Organization [facility] Address [address] [place] [address] Care Team Providers Care Dairy Truck Driver Name Role Phone Unavailable Primary Care Provider [...] times a day as neededActive Encounters DateTypeDepartmentCare YftaMldxzzhvyxo85/17/2025 8:00 AM EDTAncillary Procedure [facility] [address] [place] [address] [place] [address] Cyst of ovary, unspecified laterality; Uterine leiomyoma, unspecified gniygoai19/10/2025Travelfrom Last 3 Months Family History Medical HistoryRelationNameCommentsBreast cancerMother's SisterRelationName StatusCommentsMother's Sister Social History Tobacco UseTypesPacks/DayYears UsedDateSmoking Tobacco: Never Assessed CommentsUnknownSex and Gender InformationValueDate RecordedSex Assigned at Pojdrp8101/25/2023 9:28 AM EDTLegal SriSdxhtp52/15/2023 11:48 PM EDTGender BchptztyKxqzbn43/10/2023 9:28 AM EDTSexual UhbnzbzdgbvYnrupzmm16/10/2023 9:28 AM EDT Last Filed Vital Signs Vital SignReadingTime TakenCommentsBlood Yyrhuegq523/78002/01/2025 10:51 AM EDT Pulse--Temperature--Respiratory Rate--Oxygen Saturation--Inhaled Oxygen Concentration--Kxfubj01.7 kg (151 lb 8 oz)02/01/2025 10:51 AM NUSHopato600 cm (5' 3 )03/30/2023 2:54 PM EDTBody [...] Scheduling, Background Procedures Procedure NamePriorityDate/TimeAssociated DiagnosisCommentsUS PELVIS HQTERZTUYIGUKbefbpx43/17/2025 8:36 AM EDT Cyst of ovary, unspecified [...] Hathaway MD Authorizing ProviderResult TypeResult StatusCorey Alden [facility] PROCEDURESFinal Result from Last 3 Months Additional Health Concerns Active ProblemsNoted DateDiagnosed DateOB Octwubxwr29/28/2023 Insurance
--- NOTE | 2025-06-18 12:59 | US_ITS ---
The [address] [address] Patient Name: KRYS MARTINEZ MRN: [id number] date: 1995 Sex: F Assigned Patient Location: US Current Patient Location: US Accession/Order Number: [id number] Exam Date: 06/18/2025 13:00 Report Date: 06/18/2025 16:10 At the request of: ELOISE SAMS Procedure: US extremity nonvascular LT Soft tissue ultrasound. Reason for exam: Left axillary pain. COMPARISON: None. FINDINGS: Imaging of the left axilla demonstrates no suspicious abnormality. US/US extremity nonvascular LT IMPRESSION: No suspicious abnormality is seen in the area of pain involving the left axilla. Impression dictated by: Wali Spaulding Jr., D.O. 06/18/2025 4:10 PM Dictation Location: [place] [address] Electronically authenticated by: [id number] Y Date: 06/18/2025 16:10
--- OUTSIDE RECORDS SUMMARY | 2025-06-18 13:02 | XMS_ITS | CCD ---
Author Organization [facility] CliniSynm Care Team Providers Care Emergency Medicine Specialist Name Role Phone Ava Lundberg Unavailable Unavailable [...] STEVO, ERIN Primary Care Unavailable JILLIAN, DR CAROLYN Quarles Consulting Unavailable ERIN WHITESIDE Attending Unavailable [...] Unavailable Oanh DUPONT, PhD, Archie C Unavailable [phone] Fletcher Coelho MD Unavailable Erin Whiteside CNP S Primary Care Provider [phone] Unavailable Primary Care Provider Unavailemanuel Hugo MD, PhD, Archie C Unavailable Jaylon DUPONT, MPH, [facility] Unavailable Ron Ruano DO Unavailable ERIN WHITESIDE Primary Care Physician [phone] Alex PALMER-Dolores BIANCHI Unavailable Mireya DUPONT, PhD, Vinicius Chavez Unavailable Paulie DUPONT, Cortez T Unavailable [phone] Stevo, BILLING COORDINATOR-C Erin Dary Primary Care Provider Stevo, BILLING COORDINATOR-C Erin Dary Attending Provider Stevo, BILLING COORDINATOR-C Erin Dary Referring Provider Deisy DUPONT, Rodney Unavailable Johnson SCANNER SUPERVISOR-SECURITY ROVER, Dolores J Unavailable AURELIA CHAKRABORTY Attending Unavailable STEVO, ERIN S Referring Unavailable STEVO, ERIN S Primary Care Unavailable STEVO, ERIN S Referring Unavailable STEVO, ERIN S Primary Care Unavailable DO Timmy Hall Attending Provider Stevo SCANNER SUPERVISOR-SECURITY ROVER, Erin S Primary Care Provider Stevo BILLING COORDINATOR-C, Erin Dary Primary Care Provider [phone] Stevo BILLING COORDINATOR-C, Erin Dary Attending Provider [phone] Johnson SCANNER SUPERVISOR-TASH, Dolores J Unavailable Unavai lable Johnson SCANNER SUPERVISOR-SECURITY ROVER, Dolores J Unavailable Fletcher Coelho MD Unavailable Unavailable Stevo BILLING COORDINATOR-C, Erin Dary Primary Care Provider [phone] Stevo BILLING COORDINATOR-C, Erin Dary Attending Provider [phone] Stevo Erin Dary Attending Unavailable Stevo, Erin Dary Primary Care Unavailable Stevo, Erin Dary Admitting Unavailable Stevo, Erin Dary Primary Care Unavailable Timmy Hall Attending Unavailable Timmy Hall Admitting Unavailable Stevo, Erin Dary Attending Unavailable Stevo, Erin Dary Primary Care Unavailable Stevo, Erin Dary Admitting Unavailable Stevo, Erni Dary Referring Unavailable Stevo, Erin Dary Attending [...] Unavailable STEVO, ERIN S Primary Care Unavailable OSMIN MOORE Attending [...] STEVO, ERIN S Primary Care Unavailable JAYLON, ANRDEAS Attending Unavailable JAYLON, ANDREAS Referring Unavailable STEVO, [...] of OnsetReaction(s) Facility (20 sources)gabapentin; Translations: [gabapentin]Drug Fvkjbta47-40-7098Vsphas Only, Diarrhea, Nausea (finding), Diarrhea (finding), [facility]ance[facility] ([facility] sources)metroNIDAZOLE; Translations: [metronidazole]Drug Uqeilqh04-38-3029 Nausea (finding), GI intolerance, GI Disturbance, Nausea OnlyOS[facility] (1 source)metroNIDAZOLE; Translations: [Flagyl]Drug AllergyKind[facility] Rep[facility] Medications Current Medications MedicationDrug Class(es)DatesSig (Normalized)Sig (Original)ARIPiprazole 2 mg oral tablet (3 sources)Atypical AntipsychoticStart: 20-02-3243ywro 1 mg by mouth once daily Abilify [...] for oral suspension (1 source)Bile Acid SequestrantStart: 13-25-4540lrcurzzerxbjfn 4 g/5 g Oral Pwdr 1 packet(s), Oral, BID, 60 EA, Refill(s) 6, [facility]/pharmacy #[id number], 154, cm, 02/07/24 8:50:00 EDT, Height/Length Dosing Start Date: 02/07/24 Status: Ordered colestipol hydrochloride 1000 mg oral tablet (6 sources)Bile Acid SequestrantStart: 16-32-9822rkuc 2 tablets by mouth twice dailyColestid 1 g Tab 2 gm = 2 tab(s), Oral, BID, with a full glass of water, # 180 tab(s), Refills(s) 3, Pharmacy: [facility]/pharmacy #[id number], 154, cm, 03/08/25 14:03:00 EDT, Height/Length Dosing, 68.2, kg, 03/08/25 14:03:00 EDT, Weight Dosing Start Date: 03/08/25 Status: Ordered Quantity: 180.0 Unit: tab(s) Repeat number: 4Start: 99-65-6410sxitdcoqqX (COLESTID) 1 g tablet Take 1 tablet (1 g total) by mouth every other day. TAKE 2 TABLETSBY MOUTH TWICE A DAY WITH A FULL GLASS OF WATER, per patient every other day 02/17/2024 Activecyproheptadine hydrochloride 4 mg oral tablet (8 sources)Start: 88-14-2303tpud 1 tablet by mouth four times daily as needed Cyproheptadine 4 MG tablet Take 1 tablet by mouth 4 times daily as needed for Other (flushing). Flushing: periactin 4 mg every 6 hours as needed. Will start @ night as it can cause dizziness, drowsiness 60 tablet 3 07/08/2022 Active Emgality Prefilled Pen (2 sources)Start: 24-66-0040qsnufr 1 mg by subcutaneous injection every month Emgality Prefilled Pen mg, SubCutaneous, qMonth, Refills(s) 0 Start Date: 03/08/25 Status: Ordered Repeat number: 10.4 ml enoxaparin sodium 100 mg/ml prefilled syringe (16 sources)Low Molecular Weight HeparinStart: 05-29-2022 End: 20-29-2377Fiufpkeanr Sodium 40 MG/0.4ML injection Indications: DVT/PE prophylaxis Inject one syringe (0.4 mL)under the skin every 24 hours. 10 mL 0 05/29/2022 ActiveStart: 05-22-2022 End: 81-54-3806Ocwfetmnsp Sodium (LOVENOX) injection 40 mgFLUoxetine 20 mg oral capsule (20 sources)Serotonin Reuptake InhibitorStart: 08-17-2023 End: 14-35-8467pylc 1 mg by mouth once dailyProzac 20 mg Cap mg cap(s), Oral, Daily, Refills(s) 0 Start Date: 03/08/25 Status: Ordered Repeat number: 1Start: 05-25-2022 End: 99-01-5349XVWobwpypv (PROZAC) capsule 40 mgStart: 91-45-9738qalu 1 tablet by mouth in the morning, [...] ml galcanezumab-gnlm 120 mg/ml auto-injector (12 sources)Start: 15-75-2269Jridyaimetpj-gnlm (Emgality) 120 MG/ML Solution Auto-injector Indications: Chronic migraine withoutaura without status migrainosus, not intractable Inject 120 mg under the skin every 30 days. Use 1ml 30days after the initial loading dose of 2ml. Afterwards, continue to use it every 30 days. 1 mL 11 11/16/2024 ActiveStart: 11-15-2024 End: 25-11-9693ipjere 240 mg by subcutaneous injection onceGalcanezumab-gnlm 120 MG/ML Solution Auto-injector Indications: Chronic migraine without aura without status migrainosus, not intractable Inject 240 mg under the skin once for 1 dose. 2 mL 5ActivehydrOXYzine (5 sources)AntihistamineStart: 21-12-4489iqqbEDDqkue 100 mg, Refills(s) 0 Start Date: 03/08/25 Status: Ordered Repeat number: 1take 1 capsule by mouth three times daily as needed for anxietyhydrOXYzine pamoate 50 MG capsule Take 1 capsule by mouth 3 times daily as needed for Anxiety. ActivelamoTRIgine 100 mg oral tablet (20 sources)Mood Stabilizer, Anti-epileptic AgentStart: 72-07-5751rask 1 mg by mouth twice dailyLamictal 100 mg Tab mg tab(s), Oral, BID, Refills(s) 0 Start Date: 03/08/25 Status: Ordered Repeat number: 1Start: 59-60-6520inbz 1 tablet by mouth once dailylamoTRIgine (LaMICtal) [...] 300 mg/ml prefilled syringe (2 sources)Somatostatin AnalogStart: 33-55-4701Tmmetljzrz 60 MG/0.2ML Solution Inject 1 Syringe under [...] mg oral tablet (2 sources)Dopamine-2 Receptor AntagonistStart: 35-39-9877czyzcmqrltnkon (Reglan) 10 MG tablet Indications: Heartburn during [...] 75 mg oral capsule (1 source)Nitrofuran AntibacterialStart: 22-97-3587fyyu 1 capsule by mouth every twelve hoursMacrobid 100 MG 1 capsule with food Orally every 12 hrs for 5 days Dec, ActiveNurtec ODT (2 sources)Start: 14-80-0414Ysrreg ODT See Instructions, as needed, Refills(s) 0 Start Date: 03/08/25 Status: Ordered Repeat number: 1octreotide 20 mg injection (20 sources)Somatostatin AnalogStart: 10-87-4009hkwnppgmpu 20 mg IM Inj See Instructions, 20 mg IntraMuscular as needed, Refills(s) 0 Start Date: 03/08/25 Status: Ordered Repeat number: 1Start: 11-08-2023 End: 16-85-6936lqbzbm 1 mL by subcutaneous injection three times daily as needed Octreotide Acetate 100 MCG/ML Solution Prefilled Syringe prefilled syringe Inject 1 mL under the skin 3 times daily as needed for Other (carcinoid syndrome). 90 mL 03/17/2024 ActiveStart: 10-18-2023 End: 55-58-9362Lyeakmhafb acetate (SandoSTATIN LAR Dep[place]) 20 MG Kit injection Inject 20 mg intramuscularly every 28 days. 1 kit 11 10/18/2023 09/28/2024 Discontinued (Therapy completed)Start: 66-48-8596iphyjdzjyx,microspheres (SandoSTATIN LAR [place]) 20 mg injection Inject 20 mg into the appropriate muscle Once every four weeks. 10/18/2023 ActiveStart: 35-40-3529Rtjwkbkvjc acetate 20 MG Kit injection Indications: Carcinoid [...] tablet (20 sources)Serotonin-3 Receptor AntagonistStart: 11-09-2024 End: 09-51-9720rsir 1 tablet by mouth every eight hours as neededOndansetron 4 MG tablet Take 1 tablet by mouth every 8 hours as needed for Nausea / Vomiting. 60 tablet 11 11/09/2024 07/07/2025 ActiveStart: 04-06-2024 End: 17-89-8962bonn 1 tablet by mouth every six hours as neededOndansetron 8 MG Tab Dispersible tablet Take 1 tablet by mouth every 6 hours as needed for Nausea /Vomiting. 270 tablet 04/06/2024 07/05/2024 ActiveStart: 06-30-2023 End: 39-62-9679vrjg 1 tablet by mouth every six hoursondansetron ODT (Zofran- ODT) 4 MG disintegrating tablet Indications: Nausea and vomiting, unspecified vomiting type Take 1 tablet (4 mg) by mouth every 6 (six) hours 120 tablet 1 06/30/2023 09/28/2023 ActiveStart: 38-45-9206blgn 1 tablet by mouth once daily as needed for nauseaondansetron (ZOFRAN) 8 mg tablet Take 1 tablet (8 mg total) by mouth daily as needed for nausea or vomiting. 02/09/2023 ActiveStart: 65-65-8630uilm 1 tablet by mouth every eight hours [...] 5 mg oral tablet (20 sources)Opioid AgonistStart: 12-74-7757wurQIQGDV 5 mg Tab 21 EA, 0 Refill(s), TAKE 1 TABLET BY MOUTH EVERY 8 HOURS NEEDED FOR SEVERE PAIN FOR UP TO 7 DAYS, Refills(s) 0 Start Date: 01/25/24 Status: OrderedStart: 12-10-2023 End: 62-47-2804kdiu 1 tablet by mouth every eight hours as needed for pain oxyCODONE 5 MG tablet Indications: Abdominal pain, unspecified abdominal location Take 1 tablet by mouth every 8 hours as needed for Severe Pain for up to 7 days. 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 30 tablet 0 05/28/2022 Activephenazopyridine hydrochloride 200 mg oral tablet (1 source)Start: 24-85-5633ndle 1 tablet by mouth every eight hoursPyridium 200 MG 1 tablet after meals Orally Three times a day for 2 day(s) Dec, Activepregabalin 75 mg oral capsule (5 sources)Start: 10-22-2022 End: 93-47-1231iqsl 1 capsule by mouth at bedtimepregabalin 75 [...] oral tablet (1 source)Rifamycin AntibacterialStart: 03-08-2025 End: 75-97-8967wrko 1 tablet by mouth three times dailyrifaximin 550 mg oral tablet 550 mg = 1 tab(s), Oral, TID, X 14 day(s), # 42 tab(s), Refills(s) 0, P harmacy: [facility]/pharmacy #[id number], 154, cm, 03/08/25 14:03:00 EDT, Height/Length Dosing, 68.2, kg, 03/08/25 14:03:00 EDT, Weight Dosing Start Date: 03/08/25 Stop Date: 03/22/25 Status: Ordered Quantity: 42.0 Unit: tab(s) Repeat number: 1 rimegepant 75 mg disintegrating oral tablet (4 sources)Start: 69-13-4646Rrcqjexfyc (Nurtec) 75 MG Tab Dispersible Take 1 tablet by mouth daily as needed for up to 96 doses. Use one tablet at the onset of severe migraine. Don't exceed one tablet within 24 hours. 8 tablet 11 12/28/2024 Activerizatriptan 10 mg oral tablet (5 sources)Serotonin-1b and Serotonin-1d Receptor AgonistStart: 24-86-8977qrar 1 tablet by mouth every two hours as needed for headacherizatriptan 10 MG tablet Take 1 tablet by mouth as needed (for severe headache/migraine). May repeat in 2 hours if needed, max daily dose 30 mg 9 tablet 11 11/09/2024 Activesimethicone 180 mg oral capsule (2 sources)Start: 38-73-0768dohl 1 capsule by mouth four times daily as needed simethicone 180 mg oral capsule 180 mg = 1 cap(s), Oral, QID, PRN Gas, # 120 cap(s), Refills(s) 3, Pharmacy: [facility]/pharmacy #[id number], 154, cm, 03/08/25 14:03:00 EDT, Height/Length [...] mg oral tablet (20 sources)Start: 05-26-2022 End: 90-52-4669colomravbjsrh (TYLENOL) tablet 975 mgStart: 05-25-2022 End: 15-94-1922vwtfwadfudflt (TYLENOL) oral solution 975 mgStart: 05-22-2022 End: 49-42-0195dflwejwzvxaoy (TYLENOL) tablet 650 mgStart: 05-22-2022 End: 94-42-0936hfdhywemipwtc (TYLENOL) tablet 975 mg End: 11-80-3345tmuk 500 mg by mouth in the morningAcetaminophen (TYLENOL EXTRA STRENGTH PO) Take 500 mg by mouth in the morning. Activetake 2 tablets by mouth every four hoursAcetaminophen 325 MG tablet Take 2 tablets by mouth every 4 hours. Lcrxok976 ml albumin human, fpc 50 mg/ml injection (1 source)Human Serum AlbuminStart: 05-24-2022 End: 84-27-6412hcscjbg human 5 % injection 25 gamylase [id number] unt / lipase 13142 unt / protease 119731 unt delayed release oral capsule (20 sources)Start: 11-22-2023 End: 88-10-8067Hpzazaybvfsm, Vfv-Ztnl-Qjmb, (Creon) 95520-875904 units Cap DR Particles Please take one cap with each meal, and one cap with each snack. 120 capsule 11/22/2023 09/28/2024 DiscontinuedStart: 41-39-1175Hevjssqliptj, Vtq-Azcz-Ienp, (Creon) 23470-807361 units Cap DR Particles Indications: Exocrine pancreatic insufficiency Take two caps with each meal and one cap with each snack 210 capsule 1 09/10/2022 Activebarium sulfate (READI-CAT) 2 % oral susp 900 mL (1 source)Start: 03-31-2022 End: 19-06-7016telsmv sulfate (READI-CAT) 2 % oral susp 900 mLbenzocaine 15 mg / menthol 3.6 mg oral lozenge (1 source)Standardized Chemical AllergenStart: 05-23-2022 End: 08-96-8704wyqipximnr-menthol (CEPACOL) 15-3.6 MG per lozenge 1 lozenge bisacodyl 5 mg delayed release oral tablet (2 sources)Stimulant LaxativeStart: 04-23-2022 End: 84-66-3049earzxdchn [address] Take all 4 tablets at 11am the day before surgery 4 tablet 0 04/23/2022 06/09/2022 Discontinued (Therapy completed) bupivacaine (MARCAINE) 0.125% and fentaNYL (SUBLIMAZE) 4 mcg/mL epidural (1 source)Start: 05-22-2022 End: 52-51-4141oocwkcnxkqv (MARCAINE) 0.125% and fentaNYL (SUBLIMAZE) 4 mcg/mL epiduralcalcium chloride 0.0014 meq/ml / potassium chloride 0.004 meq/ml / sodium chloride 0.103 meq/ml / sodium lactate 0.028 meq/ml injectable solution (2 sources)Start: 05-23-2022 End: 00-73-5399zuzliees ringers IV solution 1,000 mLStart: 05-22-2022 End: 27-77-1604dxpwzbrx ringers IV solutioncetirizine hydrochloride 10 mg oral tablet (4 sources)Histamine-1 Receptor AntagonistStart: 10-21-2023 End: 87-61-0377rrcn 1 tablet by mouth at bedtimecetirizine (ZyrTEC ALLERGY) 10 MG tablet Indications: Mastitis Take 1 tablet (10 mg) by mouth at bedtime 90 tablet 2 10/21/2023 08/17/2024 DiscontinuedCitalopram (1 source)Serotonin Reuptake InhibitorCeleXA Not-Takingdicyclomine hydrochloride 10 mg oral capsule (17 sources)AnticholinergicStart: 12-10-2023 End: 45-80-7362pkgj 1 capsule by mouth four times daily as needed for muscle spasmsDicyclomine 10 MG capsule Take 1 capsule by mouth 4 times daily as needed for Abdominal Spasms for up to 7 days. 28 capsule 12/10/2023 09/28/2024 DiscontinueddiphenhydrAMINE (BENADRYL) injection 25 mg (1 source)Start: 05-22-2022 End: 75-05-3463qpcccxqhmaCAWUH (BENADRYL) injection 25 mg1 ml erenumab-aooe 70 mg/ml auto-injector (4 sources)Start: 11-09-2024 End: 84-64-5294tfhrzc 70 mg by subcutaneous injection every 30 daysErenumab-aooe (Aimovig) 70 MG/ML Solution Auto-injector Inject 70 mg under the skin every 30 days. 1 mL 11/09/2024 11/15/2024 Discontinued (Cost of medication)gabapentin 100 mg oral capsule (5 sources)Anti-epileptic AgentStart: 09-11-2022 End: 96-82-2843mhlq 2 capsules by mouth three times dailyGabapentin (Neurontin) 100 MG capsule Indications: Primary malignant neuroendocrine tumor of appendix , Low grade mucinous neoplasm of appendix , Neuropathic pain Take 2 capsules by mouth 3 times daily. 180 capsule 1 09/11/2022 10/22/2022 Discontinued (Therapy completed)Start: 05-22-2022 End: 14-66-4071cnzwfvhkcs (NEURONTIN) capsule 800 mgGallium Ga 68 Dotatate (Netspot) 0.5-5.94 millicurie (2 sources)Start: 04-25-2024 End: .5-5.94 millicurie, Intravenous, ONCE, 1 dose, On Wed04/25/24 at 0930Start: 08-19-2022 End: 49-19-2619Kennwgj Ga 68 Dotatate (Netspot) 0.5-5.94 fifpjjftsf959 ml glucose 50 mg/ml / potassium chloride 0.02 meq/ml / sodium chloride 4.5 mg/ml injection (1 source)Start: 05-22-2022 End: 66-69-2432fydtzbdq 5% and sodium chloride 0.45% 1,000 ml with potassium chloride 20 mEq premix IV solution1 ml heparin sodium, porcine 5000 unt/ml prefilled syringe (1 source)Unfractionated Heparin, Anti-coagulantStart: 05-22-2022 End: 03-89-4729ijtwpzs injection 5,000 UnitsIbuprofen (17 sources)Nonsteroidal Anti-inflammatory DrugStart: 05-26-2022 End: 39-06-2336fnidvlchb (MOTRIN) tablet 600 mgStart: 05-25-2022 End: 37-40-4252qvpqvcaaz (ADVIL;MOTRIN) oral suspension 600 mgStart: 05-22-2022 End: 98-73-1327tfhjuryku (MOTRIN) tablet 600 mgtake 1 tablet by [...] for [facility] IR (1 source)Start: 03-31-2022 End: 46-43-7776upgjopxoc (VISIPAQUE) injection 320 mg/mL for [facility] IRIohexol (OMNIPAQUE) 300 MG/ML 50 mL in Water liquid (free water) 950 mL (3 sources)Start: 09-18-2024 End: 12-47-4985ksdd 1 dose by mouth once15,000 mg, Oral, ONCE, 1 dose, On Wed09/18/24 at 1300, For administration to inpatients, to be givenby RN on inpatient nursing unit., CT ProcedureStart: 02-07-2024 End: 72-05-2719dxci 1 dose by mouth once15,000 mg, Oral, ONCE, 1 dose, On Wed02/07/24 at 1300, For administration to inpatients, to be given by RN on inpatient nursing unit., CT ProcedureStart: 11-06-2023 End: 54-08-2733ykho 1 dose by mouth once15,000 mg, Oral, ONCE, 1 dose, On Wed11/06/23 at 1200, For administration to inpatients, to be given by RN on inpatient nursing unit., CT ProcedureIohexol (OMNIPAQUE) 300 MG/ML vial 50 mL (1 source)Start: 08-19-2022 End: 81-27-1542Ljrczsl (OMNIPAQUE) 300 MG/ML vial 50 mLiohexol (OMNIPAQUE) [...] 1200, Extravasation Risk, CT ProcedureStart: 10-22-2022 End: 25-97-1544paidflu (OMNIPAQUE) 350 MG/ML injection 1-171 mLStart: 08-19-2022 End: 29-70-7056kmjcbsk (OMNIPAQUE) 350 MG/ML injection - mLIohexol (OMNIPAQUE) 9 MG/ML Bottle 1,000 mL (2 sources)Start: 01-22-2025 End: 26-15-0674pafr 1 dose by mouth once1,000 mL, Oral, ONCE, 1 dose, On Wed01/22/25 at 1000, For administration to inpatients, to be given by RN on inpatient nursing unit., CT ProcedureStart: 04-13-2024 End: 99-77-6905ottt 1 dose by mouth once1,000 mL, Oral, ONCE, 1 dose, On Eliana 04/13/24 at 1815, For administration to inpatients, to be givenby RN on inpatient nursing unit., CT Lpjtwbpmt48 ml magnesium sulfate 80 mg/ml injection (5 sources)Start: 05-28-2022 End: 38-53-5242Rukdlnnkq Sulfate 4 g in sterile water 50 ml premix IVPBStart: 05-25-2022 End: 92-14-7266lvwdpgrqy sulfate 1 g in dextrose 5% 100 mL premix IVPBStart: 05-22-2022 End: 22-39-6455Qotamrbfu Sulfate 4 g in sterile water 50 ml premix IVPB OLANZapine 5 mg disintegrating oral tablet (5 sources)Atypical AntipsychoticStart: 05-25-2022 End: 07-46-7645kmix 1 tablet by mouth once daily at bedtime5 mg, Oral, DAILY AT BEDTIME, First dose on Wed05/25/22 at 2100, Until Discontinued Administer intact tablet to dissolve in mouth; do not split, crush, or chew. End: 69-31-9755hzio 1 tablet by mouth at bedtimeOLANZapine 5 MG tablet Take 5 mg by mouth At bedtime. 0 06/09/2022 Discontinued (Therapy completed)omeprazole 20 mg delayed release oral capsule (20 sources)Proton Pump InhibitorStart: 04-07-2023 End: 92-37-1298mxzh 1 capsule by mouth before mealtimeomeprazole (PriLOSEC) [address] capsule Indications: Heart burn Take 1 capsule (20 mg) by mouth in the morning. Take before meals. Do not crush or chew. . 90 capsule 3 04/07/2023 08/17/2024 Discontinuedomeprazole [address] capsule Take 1 capsule by mouth as needed. 0 Activeondansetron 4mg/2ml (ZOFRAN) injection 4 mg (1 source)Start: 05-22-2022 End: 43-96-7032xcbn 4 mg intravenously every six hours as neededondansetron 4mg/2ml (ZOFRAN) injection 4 mgpantoprazole 40 mg delayed release oral tablet (5 sources)Proton Pump InhibitorStart: 05-28-2022 End: 23-83-0393omzeznycdgdt (PROTONIX) tablet DR 40 mgStart: 05-23-2022 End: 38-66-0485stsududcsgqo (PROTONIX) injection 40 mg End: 68-03-7307voro 2 tablets by mouth once dailypantoprazole [address] tablet DR Take 2 tablets by mouth daily. 01/06/2024 Discontinued (Patient Preference)phenol 14 mg/ml mouthwash (1 source)Start: 05-22-2022 End: 78-37-9263nphbdz (CHLORASEPTIC) 1.4 % oral spray 2 sprayPNV no.95/ferrous fum/folic ac ( ORAL) (1 source) End: 82-79-4049knpx 1 tablet by mouth in the morningPNV no.95/ferrous fum/folic ac ( ORAL) Take 1 tablet by mouth in the morning. 04/13/2024 Dis continued (Patient Stopped On Own)polyethylene glycol 3350 81013 mg powder for oral solution (2 sources)Osmotic LaxativeStart: 04-23-2022 End: 41-87-6890vdqsaezdqrtm glycol 17 GM/SCOOP Powder powder 11 AM: Take entire contents over 2 hours as instructed. 250 g 0 04/23/2022 06/09/2022 Discontinued (Therapy completed)100 ml potassium chloride 0.1 meq/ml injection (1 source)Start: 05-22-2022 End: 77-57-4197elaityomf chloride 10 mEq in sterile water 100 ml premix IVPB Vit-DSS-Fe Cbn-FA ( AD PO) (3 sources) End: 61-03-6366Vojgvdcy Vit-DSS-Fe Cbn-FA ( AD PO) Take by mouth. 01/06/2024 Discontinued (Patient Preference) Vit-DSS-Fe Cbn-FA ( AD PO) Take by mouth. Activesennosides, fpc 8.6 mg oral tablet (3 sources)Start: 05-27-2022 End: 40-65-0081scrt 1 tablet by mouth once daily as [...] at 1146, Flush, CT ProcedureStart: 10-22-2022 End: 38-03-5118Lwdchr chloride (PF) 0.9 % injection 1-100 mLStart: 08-19-2022 End: 65-36-4866Igmzbe chloride (PF) 0.9 % injection 1-100 mLStart: 05-22-2022 End: 52-79-2211dnqbjn chloride 0.9% IV solution 250 mLStart: 03-31-2022 End: 56-45-2759chyftt chloride (PF) 0.9 % injection 1-100 mL Problems Active Problems Problem ClassificationProblemDateDocumented DateEpisodic/ChronicAbdominal pain (20 sources)Unspecified abdominal pain; Translations: [Right lower quadrant pain]Onset: 53-35-1165EfqcjhldWblahdl disorders (3 sources)Mixed anxiety and depressive jtdswcuw64-18-5266NntywqoHnmppbb tract disease (3 sources)Cholelithiasis without omrnccmozhv93-38-4297PltwmpneDktqbj of cervix (3 sources)Atypical squamous cells of undetermined significance on cervical Papanicolaou vhxos59-69-7249DirgkhfgLscund of colon (2 sources)Malignant tumor of appendix; 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]Onset: 29-64-0678XtlykxaLhzctnd dysrhythmias (7 sources)Tachycardia; Translations: [Tachycardia, unspecified]Onset: 42-55-6122DfkmzjueAxgaxaxswfptl symptoms and ill-defined conditions (2 sources)Increased frequency of urination; Translations: [Frequency of micturition]Onset: 12-22-2021 Resolved: 73-97-0746MupqlsfkPkdfcxvw; including migraine (11 sources)Migraine; Translations: [Migraine without aura, not refractory ] 35-95-4697QxsxardEdpemqpn; including migraine (2 sources)Headache; including migraine; Translations: [Headache, unspecified] Onset: 61-41-5578Wbdtbqfcrexcg and screening for infectious disease (8 sources)Raised antinuclear antibody; Translations: [Raised antibody titer] Onset: 80-05-2359BrvupqadPaerrznudi infection (3 sources)Clostridium difficile vsriqnq94-17-6964JmqnmeklRmopugi and fatigue (1 source)Chronic fatigue syndrome; Translations: [Myalgic encephalomyelitis/chronic fatigue syndrome (ME/CFS)]13-41-0710ZzljqxaAxfblfl and fatigue (4 sources)Other fatigue; Translations: [OTHER FATIGUE]Onset: 03-09-8186Bdszrbsq Malignant neoplasm without specification of site (20 sources)Primary malignant neuroendocrine neoplasm of appendix; Translations: [Other malignant neuroendocrine tumors]Onset: 49-24-9505SwulpqjDneosxyiv disorders (4 sources)Menstrual period late; Translations: [Irregular menstruation, unspecified]Onset: 12-22-2021 Resolved: 65-14-1423PhaoyfzIxbf disorders (1 source)Major depressive disorder, single episode, unspecified; Translations: [NONA DEPRESS D/O SINGLE EPIS UNS]Onset: 05-34-3359SenfurkTxzlsg and vomiting (5 sources)Nausea; Translations: [Nausea]Onset: 70-38-6739MormyjbwRlhdebtcb of unspecified nature or uncertain behavior (16 sources)Neoplasm of uncertain behavior of appendix; Translations: [Neoplasm of appendix]Onset: 690775-97-4009ZgtisuknZmwfvjjybipx breast conditions (9 sources)Unspecified lump in unspecified breast; Translations: [Solitary cyst of left breast]Onset: 04-40-4625EndzjelrEtjxttutraa deficiencies (4 sources)Vitamin D deficiency, unspecified; Translations: [Vitamin D deficiency]Onset: 886017-07-1691LshetyoWsrutqpypok deficiencies (3 sources)Iron hdoklqsyjk46-29-9842LlupcuwdRkxti connective tissue disease (2 sources)Fibromyalgia; Translations: [Fibromyalgia]EpisodicOther connective tissue disease (3 sources)Pain in lower xdkr74-30-1400BunewyvfRzldd endocrine disorders (20 sources)Carcinoid syndrome; 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]Onset: 91-42-4894JvsmwjjSkngt endocrine disorders (3 sources)Carcinoid syndrome; 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]Onset: 31-98-1072WqrlrqaXojns endocrine disorders (3 sources)Ltbpjodyndajjsg88-20-3967LjvydgsMmgit female genital disorders (4 sources)Pelvic congestion syndrome; Translations: [Other specified conditions associated with female genital organs and menstrual cycle]76-22-3306Gnflbnpi Other gastrointestinal disorders (8 sources)Diarrhea; Translations: [Diarrhea, unspecified]Onset: 01-25-2024 42-04-1957FpcicljqWhmhx gastrointestinal disorders (3 sources)H/O: usseqzn16-94-9961RsdcoajeUfrue gastrointestinal disorders (2 sources)Swollen abdomen; Translations: [Abdominal distension (gaseous)]Onset: 16-17-0665AlsrjqqpLtsys gastrointestinal disorders (2 sources)Abdominal igqfnqzo38-86-0886DyztjrbiXfljy infections; including parasitic (1 source)H/O: infectious disease; Translations: [Personal history of other infectious and parasitic diseases]Onset: 09-04-1358LgzfznfvVtdbm inflammatory condition of skin (1 source)Rosacea; Translations: [Rosacea, unspecified]95-62-5499QjtigubXwryh inflammatory condition of skin (2 sources)Rosacea, unspecified; Translations: [Rosacea, unspecified]Onset: 06-06-5251ObecjxiZwzmu liver diseases (1 source)Elevated liver enzymes level; Translations: [Abnormal levels of other serum enzymes]03-21-2820QgqeegekUednp liver diseases (1 source)Enzyme level - finding; Translations: [Abnormal levels of other serum enzymes]Onset: 85-34-0903NrziwlelMliyp lower respiratory disease (3 sources)Dyspnea; Translations: [Shortness of breath]EpisodicOther nervous system disorders (2 sources)Other chronic pain; Translations: [Other chronic pain]Onset: 86-77-9655OdiziliNekep nervous system disorders (1 source)Postoperative pain ; Translations: [Other acute postprocedural pain] EpisodicOther non-traumatic joint disorders (1 source)Multiple joint pain; Translations: [Pain in unspecified joint] 86-37-5667DvivqzawGsuvv nutritional; endocrine; and metabolic disorders (20 sources)Obese class I; Translations: [Obesity, unspecified]Onset: 04-06-2023 37-82-6961QpzplvnNoxjl and delivery including normal (2 sources)Third trimester ; Translations: [Encounter for supervision of normal , unspecified, third trimester]62-57-9148FrkryksfNvuxiregceg disorders (3 sources)Borderline personality oygozirc12-21-3329ErzkexrZnjnkwdf enteritis and ulcerative colitis (1 source)Ulcerative colitisOnset: 26-71-2800EilzmevFqpxttbo codes; unclassified (1 source)Pain, unspecified; Translations: [Pain, unspecified]Onset: 04-19-2024 EpisodicUnclassified (1 source)CONTACT W/AND (SUSP) EXPOS COVID-19; Translations: [CONTACT W/AND (SUSP) EXPOS COVID-19]Onset: 70-29-9448Vhntixkblwjd (14 sources)OB RemindersOnset: 571690-45-9471Rumavdwmrmpm (1 source)Myalgic encephalomyelitis/chronic fatigue syndrome; Translations: [Myalgic encephalomyelitis/chronic fatigue syndrome]Onset: 81-22-4193Ktzpvmr tract infections (3 sources)Interstitial cystitis (chronic) without hematuria; Translations: [Chronic interstitial cystitis]Onset: 662802-09-0130Mzdxxoy Past or Other Problems Problem ClassificationProblemDateDocumented DateEpisodic/ChronicAppendicitis and other appendiceal conditions (1 source)Unspecified acute appendicitis; Translations: [UNSPECIFIED ACUTE APPENDICITIS]Onset: 74-15-7836PvwjdchwIdxxmramjsiovpli hemorrhage (3 sources)Melena; Translations: [Black feces]Onset: 569138-43-4818 EpisodicMood disorders (20 sources)Mood disordersOnset: 06-09-2022 Resolved: 024605-38-9152Dhmqaroluejrj gastroenteritis (3 sources)Noninfective gastroenteritis and colitis, unspecified; Translations: [Colitis]Onset: 765008-95-9754VguknhthTecac aftercare (1 source)Other halfway (current) drug therapy; Translations: [OTH GROUP HOME CURRENT DRUG THERAPY]Onset: 57-08-8201JwanpjktRkzay and unspecified benign neoplasm (4 sources)Other benign neuroendocrine tumors; Translations: [OTHER BENIGN NEUROENDOCRINE TUMORS]Onset: 74-06-2918VevkyqeyDzwso and unspecified benign neoplasm (1 source)Benign carcinoid tumor of the appendix; Translations: [BENIGN CARCINOID TUMOR THE APPENDIX]Onset: 47-08-7953GkdxharpEtokr and unspecified benign neoplasm (5 sources)Neuroendocrine neoplasm of appendix; Translations: [Other benign neuroendocrine tumors]Onset: 837541-15-2917VzqeipejNauju complications of (4 sources) dysrhythmia; Translations: [Maternal care for abnormalities of the heart rate or rhythm, unspecified trimester, not applicable or unspecified]Onset: 203078-64-5397GijrambwQggrv complications of (4 sources)High risk ; Translations: [Supervision of other high risk pregnancies, second trimester]Onset: 971702-48-7581ArcafljcDodya connective tissue disease (5 sources)Pain in right leg; Translations: [PAIN IN RIGHT LEG]Onset: 04-29-2022 EpisodicOther connective tissue disease (2 sources)Fibromyalgia; Translations: [Fibromyalgia]Onset: 99-00-2005Khujfavg Other gastrointestinal disorders (4 sources)Diarrhea, unspecified; Translations: [DIARRHEA UNSPECIFIED]Onset: 49-08-2628YoasgofvUndpm non-traumatic joint disorders (2 sources)Pain in unspecified joint; Translations: [Pain in unspecified joint] Onset: 37-12-6052GfmnbeleNjvvm screening for suspected conditions (not mental disorders or infectious disease) (4 sources)Encounter for screening for malignant neoplasm of cervix; Translations: [ENC SCREENING MALIG NEOPLASM CERV]Onset: 38-02-1057Yepgcclu Ovarian cyst (1 source)Unspecified ovarian cyst, left side; Translations: [UNSPECIFIED OVARIAN CYST LEFT SIDE]Onset: 91-94-5733YbjkwlvxOqgwvmba codes; unclassified (1 source)Acquired absence of other specified parts of digestive tract; Translations: [ACQ ABSENCE OTH PART DIGESTV TRACT]Onset: 19-93-4291Xuninajj Unclassified (1 source)Low grade mucinous neoplasm of emxfodjy57-16-9471Hkdeehnhhetd (1 source)Myalgic encephalomyelitis/chronic fatigue syndrome; Translations: [Myalgic encephalomyelitis/chronic fatigue syndrome]Onset: 25-49-2924Hdzfoqz tract infections (1 source)Acute cystitis without hematuriaOnset: 12-22-2021 Resolved: 63-04-3711Fhdmblvm Results Test NameValueInterpretationReference RangeFacilityUS PELVIS TRANSVAGINALon 90-08-6843TQ PELVIS TRANSVAGINALFINDINGS: Uterus 8.3 x 5.4 x [...] PELVIS-TRANSVAG IF INDICATED No LMP recorded.Urine Cultureon 94-75-7663Ilahkkvw identified Cx Nom (U) ORGANISM: Escherichia coli (O:ESCCOL) Finley Count >100,000 Aerobic ESTHER Charge (NMIC56) SUSCEPTIBILITY [...] RESISTANT TO ALL B-LACTAM DRUGS. PERFORMED BY: [facility] [address] [place] [address] PATHOLOGIST FRAMING MILL OPERATOR HELPER ROSMERY BROWN M.D.[facility] Physician GroupComment on above: Performed By: #### CUU #### [place] [address] USAGastroenterology Office/Clinic Noteon 03-09-2025 Gastroenterology Office/Clinic NoteGastroenterology [...] When Contact Information Paulie DUPONT, Diego Umana [facility] In 2 months [address], [phone] Additional Instructions: Problem List/Past Medical History Ongoing [...] 1995 Recorded Hib, unspecif (more content not included)...[facility] Comment on above:Result Comment: Electronically Signed By: Aurelia Carcamo MA\.br\Date and Time Signed: 03/08/25 14:35 EDT\.br\Electronically Co-Signed By: Diego Apodaca MD\.br\Date and Time Co-Signed: 03/09/25 12:26 EDT Ambulatory Visit Summaryon [id number] Visit SummaryAmbulatory Visit Summary ZAINAB SWIFT :1995 [...] Following Appointments Follow Up with Paulie DUPONT, Diego Umana, JIAN, MED When: In 2 months Where: [address] [place] [address], [facility] [address] [phone] Medications What How Much When Instructions New colestipol (Colestid 1 g Tab) 2 Tablets By Mouth 2 times a day Refills: 3 with a full glass of water Pickup at [facility]/pharmacy #[id number] New rifaximin (rifaximin 550 mg oral tablet) 1 Tablets By Mouth 3 times a day Duration: 14 Days Pickup at [facility]/pharmacy #6177 New simethicone (simethicone 180 mg oral capsule) 1 Capsules By Mouth 4 times a day as needed for Gas Refills: 3 Pickup at [facility]/pharmacy #6177 Unchanged aripiprazole (Abilify 2 mg Tab) [...] physician if questions or concerns Pharmacy Information [facility]/pharmacy #[id number]: [address], [place] [phone] [phone] Allergies Flagyl (Nausea) gabapentin (Nausea, Diarrhea) Problems [...] signed up for this yet, please contact [employer] at [phone] to get signed up today. Language Information Language assistance services are available as needed. [facility] CenterCT ABDOMEN/PELVIS WITH AND WITHOUT CONTRASTon 99-43-8610DM ABDOMEN/PELVIS WITH AND WITHOUT CONTRASTEXAM: CT ABDOMEN/PELVIS [...] error, please notify the sender immediately at [phone] and permanently delete the original report and destroy any copies or printouts.[facility] HospitalC AND ELECTRONIC DIFFon 01-71-1988Sdunztjdz (Bld) [#/Vol]0.05 10*3/uL0.00 - 0.15 K/[facility] TownshipBasophils/100 WBC (Bld)0.8 %[facility] HospitalDifferential cell count method Nom (Bld)Electronic DifferentialCleveland Clinic [facility] Hospital Eosinophils (Bld) [#/Vol]0.24 10*3/uL0.00 - 0.42 K/[facility] Eosinophils/100 WBC (Bld)3.6 %[facility] HospitalErythrocyte distribution width (RBC) [Ratio]12.3 %10.8 - 14.9 %[facility] HospitalHematocrit (Bld) [Volume fraction]40.8 %34.9 - 44.3 %[facility] HospitalHemoglobin (Bld) [Mass/Vol]13.4 g/dL11.4 - 15.2 g/dLCleveland Clinic Marymount HospitalImmature granulocytes (Bld) [#/Vol]K/uLNINF - 0.08 K/[facility] TownshipImmature granulocytes/100 WBC (Bld)0.3 %[facility] HospitalLymphocytes (Bld) [#/Vol]2.06 10*3/uL1.16 - 3.51 K/uLCleveland Clinic Marymount HospitalLymphocytes/100 WBC (Bld)31 %[facility] HospitalH (RBC) [Entitic mass]28.2 pg25.9 - 33.9 pg [facility] HospitalMCHC (RBC) [Mass/Vol]32.8 g/dL31.4 - 35.9 g/dLCleveland Clinic Marymount HospitalMCV (RBC) [Entitic vol]85.7 fL79.6 - 97.7 [facility] HospitalMonocytes (Bld) [#/Vol]0.46 10*3/uL0.22 - 0.87 K/uLOSSamaritan North Health CenterMonocytes/100 WBC (Bld)6.9 %[facility] HospitalNeutrophils (Bld) [#/Vol]3.82 10*3/uL1.64 - 7.28 K/uLCleveland Clinic Marymount HospitalNucleated RBC/100 WBC (Bld) [Ratio]0 %NINLakeHealth TriPoint Medical CenterPlatelet mean volume (Bld) [Entitic vol]9.5 fL8.5 - 12.2 [facility] HospitalPlatelets (Bld) [#/Vol]337 10*3/uL150 - 393 K/[facility] TownshipRBC (Bld) [#/Vol]4.76 10*6/uLSt. Mary's Medical Center, Ironton Campusegmented neutrophils/100 WBC (Bld)57.4 %[facility] HospitalWBC (Bld) [#/Vol]6.65 10*3/uL3.99 - 11.19 K/uLCleveland Clinic Marymount HospitalOSU Southwest General Health CenterBasophils (Bld) [#/Vol]0.05 10*3/uLNormal 0.00-0.15Tog[facility] Va Medical CenterComment on above:Performed By: #### ESR #### [facility] (DEFAULT) [address] [address]Zxydvccoj/100 WBC (Bld)0.8 %[facility] HospitalComment on above:Performed By: #### ESR #### [facility] (DEFAULT) [address] [address]PROO STATUSElectronic DifferentialNormalOhiAdams County HospitalComment on above:Performed By: #### ESR #### [facility] (DEFAULT) [address] [address]Sggpipzpesf (Bld) [#/Vol]0.24 10*3/uLNormal0.00-0.42[facility] Medical CenterComment on above:Performed By: #### ESR #### [facility] (DEFAULT) [address] [address]Tyccuibwqit/100 WBC (Bld)3.6 %[facility] HospitalComment on above:Performed By: #### ESR #### [facility] (DEFAULT) [address] [place] [address]Btzlymnltm (Bld) [Volume fraction]40.8 %Vwaycp06.9-44.3T[facility] Va Medical CenterComment on above:Performed By: #### ESR #### [facility] (DEFAULT) [address] [place] [address]Vqhihptaph (Bld) [Mass/Vol]13.4 g/uELubhol33.4-15.2[facility] Medical CenterComment on above:Performed By: #### ESR #### [facility] (DEFAULT) [address] [place] [address]Paqzbvng Grans %0.3 %NormalTogus Va Medical CenterComment on above:Performed By: #### ESR #### [facility] (DEFAULT) [address] [place] [address] 96321Bncvnsdf Grans Absolute<Normal<=0.08[facility] Medical CenterComment on above:Performed By: #### ESR #### [facility] (DEFAULT) [address] [place] [address] 00702Ucokdgphalx (Bld) [#/Vol]2.06 10*3/uLNormal1.16-3.51[facility] Medical CenterComment on above:Performed By: #### ESR #### [facility] (DEFAULT) [address] [place] [address] 544[address]Dkjbttezjsx/100 WBC (Bld)31.0 %NormalTogus Va Medical CenterComment on above:Performed By: #### ESR #### [facility] (DEFAULT) [address] [address]GBW (RBC) [Entitic vol]85.7 gRIbpfep11.6-97.7[facility] Medical CenterComment on above:Performed By: #### ESR #### [facility] (DEFAULT) [address] [place] [address] 74274Bnaj Cell Hgb28.2 ksSdneih52.9-33.9[facility] Medical CenterComment on above:Performed By: #### ESR #### [facility] (DEFAULT) [address] [place] [address] 825[address]Fdnp Cell Hgb Conc32.8 g/zPPzwnrw83.4-35.9[facility] Medical CenterComment on above:Performed By: #### ESR #### [facility] (DEFAULT) [address] [place] [address] 29[address]Gcnufkxkj (Bld) [#/Vol]0.46 10*3/uLNormal0.22-0.87[facility] Medical CenterComment on above:Performed By: #### ESR #### [facility] (DEFAULT) [address] [place] [address] 31495Xobkavsbe/100 WBC (Bld)6.9 %NormalTogus Va Medical CenterComment on above:Performed By: #### ESR #### [facility] (DEFAULT) [address] [place] [address] 93200Obywvstll RBC0.0 /100 WBCNormal<=0.2[facility] Medical CenterComment on above:Performed By: #### ESR #### [facility] (DEFAULT) [address] [place] [address] 26[address]Yqrrrrop mean volume (Bld) [Entitic vol]9.5 fLNormal8.5-12.2 [facility] CenterComment on above:Performed By: #### ESR #### [facility] (DEFAULT) [address] [place] [address]Txttnvvky (Bld) [#/Vol]337 10*3/oQNamxkc156-204RhaxTogus Va Medical CenterComment on above:Performed By: #### ESR #### [facility] (DEFAULT) [address] [place] [address] 097[address]RGL (Bld) [#/Vol]4.76 10*6/uLNormal3.91-5.04[facility] Medical CenterComment on above:Performed By: #### ESR #### [facility] (DEFAULT) [address] [place] [address] 877[address]TZG Avsyblsxfgjo97.3 %Ppkakj35.8-14.9[facility] Medical CenterComment on above:Performed By: #### ESR #### [facility] (DEFAULT) [address] [place] [address] 48185Latl + Bands Auto57.4 %NormalOhOhioHealth Grant Medical CenterComment on above:Performed By: #### ESR #### [facility] (DEFAULT) [address] [place] [address] 80[address]Pawg + Bands,Absolute Auto3.82 K/uLNormal1.64-7.28[facility] Medical CenterComment on above:Performed By: #### ESR #### [facility] (DEFAULT) [address] [place] [address] 968[address]BKW (Bld) [#/Vol]6.65 10*3/uLNormal3.99-11.19[facility] Medical CenterComment on above:Performed By: #### ESR #### [facility] (DEFAULT) [address] [place] [address] 10294JABAZEJCJPJF Aon 46-32-2547Xucmkyknfgip A29 ng/mLNormal<93T[facility] Va Medical CenterComment on above:Result Comment: ADDITIONAL INFORMATION The testing method is a homogeneous time-resolved immunofluorescent assay manufactured by [employer] and performed on the [employer] Cloud KrSNUPI Technologiesor Compact Plus. Values obtained with different assay [...] examination and other findings. Test Performed by: [facility] [address] [place] [address] [employer] Supervisor: Jami Sher Ph.D.; CLIA# [id number] By: #### YCHGRA #### [facility] (DEFAULT) [address] [place], [place] [address]COMPREHENSIVE METABOLIC PANELon 51-01-6543Isnijgu [Mass/Vol] 4.8 g/dL3.5 - 5.0 g/dLOSSamaritan North Health CenterALP [Catalytic activity/Vol]52 U/L32 - 126 U/[facility] OhioALT [Catalytic activity/Vol]13 U/L9 - 48 U/[facility] OhioAnion gap [Moles/Vol]12 mmol/L7 - 17 mmol/[facility] OhioAST [Catalytic activity/Vol]13 U/L10 - 39 U/[facility] OhioBilirubin [Mass/Vol]0.5 mg/dLNINF - 1.5 mg/dLCleveland Clinic Marymount HospitalCalcium [Mass/Vol]9.6 mg/dL8.6 - 10.5 mg/dLCleveland Clinic [facility] Chloride [Moles/Vol]104 mmol/L98 - 108 mmol/[facility] OhioCO2 [Moles/Vol]27 mmol/L21 - 31 mmol/[facility] OhioCreatinine [Mass/Vol] 0.72 mg/dL0.50 - 1.20 mg/dLCleveland Clinic Marymount HospitaleGFR, CKD-EPI, Female- PINF [facility] HospitalComment on above:Reported eGFR is based on the CKD-EPI 2020 equation using creatinine, age, and sex.Glucose [Mass/Vol]90 mg/dL70 - 179 mg/dLCleveland Clinic Marymount HospitalOsmolality Calc [Osmolality]289OS[facility] CenterPotassium [Moles/Vol]4.1 mmol/L3.5 - 5.0 mmol/[facility] Protein [Mass/Vol]7.5 g/dL6.4 - 8.3 g/dLSt. Mary's Medical Center, Ironton Campusodium [Moles/Vol]139 mmol/L135 - 145 mmol/[facility] OhioUrea nitrogen [Mass/Vol]10 mg/dL7 - 25 mg/dLCleveland Clinic Marymount HospitalUrea nitrogen/Creatinine [Mass ratio]14 mg/mgCleveland Clinic Marymount HospitalAlbumin [Mass/Vol]4.8 g/dLNormal 3.5-5.0T[facility] Va Medical CenterComment on above:Performed By: #### ESR #### [facility] (DEFAULT) [address] [address]CAL [Catalytic activity/Vol]52 U/RKquqxl06-614PdzvTogus Va Medical CenterComment on above:Performed By: #### ESR #### [facility] (DEFAULT) [address] [place] [address] 735[address]XYC [Catalytic activity/Vol]13 U/LNormal9-48[facility] Medical CenterComment on above:Performed By: #### ESR #### [facility] (DEFAULT) [address] [place] [address] 83[address]Aklfj gap [Moles/Vol]12 mmol/LNormal7-17[facility] Medical CenterComment on above:Performed By: #### ESR #### [facility] (DEFAULT) [address] [place] [address] 73329AGB [Catalytic activity/Vol]13 U/GIjlnsz53-36TaxgTogus Va Medical CenterComment on above:Performed By: #### ESR #### [facility] (DEFAULT) [address] [address]Bebvemplb [Mass/Vol]0.5 mg/dLNormal<1.5[facility] Va Medical CenterComment on above:Performed By: #### ESR #### [facility] (DEFAULT) [address] [place] [address] 38770Oeyyjpx [Mass/Vol]9.6 mg/dLNormal8.6-10.5[facility] Medical CenterComment on above:Performed By: #### ESR #### [facility] (DEFAULT) [address] [place] [address] 57140Umdxepul [Moles/Vol]104 mmol/KOerbzx24-839DxfoTogus Va Medical CenterComment on above:Performed By: #### ESR #### [facility] (DEFAULT) [address] [place] [address] 85629JX0 [Moles/Vol]27 mmol/GArolds48-79QqpuTogus Va Medical CenterComment on above:Performed By: #### ESR #### [facility] (DEFAULT) [address] [place] [address] 33[address]Cdwcqrprnf [Mass/Vol]0.72 mg/dLNormal0.50-1.20[facility] Medical CenterComment on above:Performed By: #### ESR #### [facility] (DEFAULT) [address] [place] [address] 80162pBWM, CKD-EPI, Female>Normal>=60T[facility] Medical CenterComment on above:Result Comment: Reported eGFR is based on the CKD-EPI 2020 equation using creatinine, age, and sex.Performed By: #### ESR #### [facility] (DEFAULT) [address] [place] [address] 134[address]Rejclek [Mass/Vol]90 mg/dLNormalNonfastin-179 mg/dL; Fastin-99OhOhioHealth Grant Medical CenterComment on above: Performed By: #### ESR #### [facility] (DEFAULT) [address] [place] [address] 97189Zrihumeprx [Osmolality]289 mosm/pnGoykpo979-886HzolTogus Va Medical CenterComment on above:Performed By: #### ESR #### [facility] (DEFAULT) [address] [place] [address] 35731Ekmdeessx [Moles/Vol]4.1 mmol/LNormal3.5-5.0T[facility] Medical CenterComment on above:Performed By: #### ESR #### [facility] (DEFAULT) [address] [address]Zrvxvvr [Mass/Vol]7.5 g/dLNormal6.4-8.3T[facility] Medical CenterComment on above:Performed By: #### ESR #### [facility] (DEFAULT) [address] [place] [address] 82545Hmmkgu [Moles/Vol]139 mmol/FRcmeum294-565JtonTogus Va Medical CenterComment on above:Performed By: #### ESR #### [facility] (DEFAULT) [address] [address]Gsfw nitrogen [Mass/Vol]10 mg/dLNormal7-25[facility] Medical CenterComment on above:Performed By: #### ESR #### [facility] (DEFAULT) [address] [place] [address] 98006Gbvq nitrogen/Creatinine [Mass ratio]14 mg/mgNormalOGreene Memorial HospitalComment on above:Performed By: #### ESR #### [facility] (DEFAULT) [address] [address]ILJOCRI DEHYDROGENASEon 15-57-2648Oznsjlruhlxhou and review of laboratory resultsNormOhioHealth Mansfield HospitalLD Lactate to pyruvate reaction [Catalytic activity/Vol]113 U/L100 - 190 U/LOSU [facility] General Health CenterLD Wjgqm282 U/HXekbrk242-925KjliTogus Va Medical CenterComment on above:Performed By: #### YALDO #### [facility] (DEFAULT) [address] [address]Qo Panel Informationon 27-54-2097JUKSamaritan North Health Center ALDOLASEon 70-57-6184Ygydkaiq8.9 U/LNormal<7.7T[facility] Va Medical CenterComment on above:Result Comment: ADDITIONAL INFORMATION This test has been modified from the carbon rod inserter's instructions. Its performance characteristics were determined by [facility] in a manner consistent with CLIA requirements. This test has not been cleared or approved by the U.S. Food and Drug Administration. Test Performed by: [place] [address] [employer] Supervisor: Jami Sher Ph.D.; CLIA# [id number] By: #### STEPHON #### [facility] (DEFAULT) [address] [place] [address] 26045V REACTIVE PROTEINon 52-68-0673MTR High sensitivity method [Mass/Vol]0.6 mg/LNINF - 10.00 mg/LOSU [facility] General Health CenterCRP [Mass/Vol]0.60 mg/LNormal<10.00T[facility] Va Medical CenterComment on above: Performed By: #### STEPHON #### [facility] (DEFAULT) [address] [place] [address] 15745A7,C4on [id number] C3 [Mass/Vol]155 mg/dL87 - 200 mg/dLCleveland Clinic Marymount HospitalComplement C4 [Mass/Vol]38 mg/dL18 - 52 mg/dLOSSamaritan North Health CenterC3155 mg/tXPzqwcj81-350DpyxTogus Va Medical CenterComment on above:Performed By: #### STEPHON #### [facility] (DEFAULT) [address] [place] [address] 48746S659 mg/sCNiqqne29-88JrnyTogus Va Medical CenterComment on above:Performed By: #### STEPHON #### [facility] (DEFAULT) [address] [place] [address] 84156DVC AND ELECTRONIC DIFFon 51-32-8126Zvtyhizvo (Bld) [#/Vol] 0.06 10*3/uLNormal0.00-0.15T[facility] Va Medical CenterComment on above:Performed By: #### ESTEBANO #### [facility] (DEFAULT) [address] [place] [address] 67511Fnahfwazj/100 WBC (Bld)0.7 %[facility] HospitalComment on above:Performed By: #### ESTEBANO #### [facility] (DEFAULT) [address] [place] [address] 71663UUZW STATUSElectronic DifferentialNormalOGreene Memorial HospitalComment on above:Performed By: #### ESTEBANO #### [facility] (DEFAULT) [address] [place] [address] 66429Xfphqxengxp (Bld) [#/Vol]0.30 10*3/uLNormal0.00-0.42T[facility] Va Medical CenterComment on above:Performed By: #### ESTEBANO #### [facility] (DEFAULT) [address] [place] [address] 34277Ukfvfxjjslj/100 WBC (Bld)3.7 %[facility] HospitalComment on above:Performed By: #### ESTEBANO #### [facility] (DEFAULT) [address] [place] [address] 30692Rogctpqlxu (Bld) [Volume fraction]40.9 %Lzhppg46.9-44.3T[facility] Va Medical CenterComment on above:Performed By: #### ESTEBANO #### [facility] (DEFAULT) [address] [place] [address] 19724Vwbzymhqzi (Bld) [Mass/Vol]13.1 g/lBMnatia79.4-15.2[facility] Medical CenterComment on above:Performed By: #### ESTEBANO #### [facility] (DEFAULT) [address] [place] [address] 14458Mrwzwvcc Grans %0.2 %[facility] HospitalComment on above:Performed By: #### ESTEBANO #### [facility] (DEFAULT) [address] [place] [address] 88923Zfsvmjir Grans Absolute<Normal<=0.08[facility] Va Medical CenterComment on above:Performed By: #### ESTEBANO #### [facility] (DEFAULT) [address] [place] [address] 28273Gqdbycqolbx (Bld) [#/Vol]2.19 10*3/uLNormal1.16-3.51T[facility] Va Medical CenterComment on above:Performed By: #### ESTEBANO #### [facility] (DEFAULT) [address] [place] [address] 45852Jqdnhvpdvay/100 WBC (Bld)27.1 %NormalTogus Va Medical CenterComment on above:Performed By: #### ESTEBANO #### [facility] (DEFAULT) [address] 23387PYE (RBC) [Entitic vol]86.3 rUSljkbd36.6-97.7T[facility] Va Medical CenterComment on above:Performed By: #### ESTEBANO #### [facility] (DEFAULT) [address] 579[address]Eiyl Cell Hgb27.6 ghDiddwv11.9-33.9[facility] Medical CenterComment on above:Performed By: #### ESTEBANO #### [facility] (DEFAULT) [address] [place] [address] 37646Ahcv Cell Hgb Conc32.0 g/fWVcgfud34.4-35.9[facility] Medical CenterComment on above:Performed By: #### AUGUSTINLDO #### [facility] (DEFAULT) [address] 51521Puyklzksf (Bld) [#/Vol]0.53 10*3/uLNormal0.22-0.87[facility] Medical CenterComment on above:Performed By: #### YALDO #### [facility] (DEFAULT) [address] [place] [address] 46396Tfwuevpzx/100 WBC (Bld)6.6 %NormalTogus Va Medical CenterComment on above:Performed By: #### STEPHON #### [facility] (DEFAULT) [address] [place] [address] 67897Njpozitrs RBC0.0 /100 WBCNormal<=0.2[facility] Va Medical CenterComment on above:Performed By: #### ESTEBANO #### [facility] (DEFAULT) [address] [place] [address] 19942Wzxzwggc mean volume (Bld) [Entitic vol]10.2 fLNormal8.5-12.2 [facility] Medical CenterComment on above:Performed By: #### ESTEBANO #### [facility] (DEFAULT) [address] [place] [address] 19686Pqkiszwmt (Bld) [#/Vol]354 10*3/iSMahdyb349-435NqhxTogus Va Medical CenterComment on above:Performed By: #### ESTEBANO #### [facility] (DEFAULT) [address] [place] [address] 86352GTR (Bld) [#/Vol]4.74 10*6/uLNormal3.91-5.04[facility] Medical CenterComment on above:Performed By: #### ESTEBANO #### [facility] (DEFAULT) [address] [place] [address] 31129PID Ldzgvvxoyvyt75.6 %Gifwkl21.8-14.9[facility] Medical CenterComment on above:Performed By: #### ESTEBANO #### [facility] (DEFAULT) [address] [place] [address] 72601Ybhn + Bands Auto61.7 %NormalTogus Va Medical CenterComment on above:Performed By: #### ESTEBANO #### [facility] (DEFAULT) [address] [place] [address] 89070Bpnz + Bands,Absolute Auto4.98 K/uLNormal1.64-7.28[facility] Medical CenterComment on above:Performed By: #### STEPHON #### [facility] (DEFAULT) [address] [place] [address] 49030WFS (Bld) [#/Vol]8.08 10*3/uLNormal3.99-11.19[facility] Medical CenterComment on above:Performed By: #### STEPHON #### [facility] (DEFAULT) [address] [place] [address] 17377MZwl 06-93-1549PC [Catalytic activity/Vol]46 U/L30 - 184 U/L [facility] HospitalInterpretation and review of laboratory resultsNormal [facility] HospitalCK [Catalytic activity/Vol]46 U/TFvxjmw40-087IjbxTogus Va Medical CenterComment on above:Performed By: #### STEPHON #### [facility] (DEFAULT) [address] [place] [address] 83384NENVUAAAYOXEF METABOLIC PANELon 92-14-8776Vvikplb [Mass/Vol] 4.9 g/dL3.5 - 5.0 g/dLOSSamaritan North Health CenterALP [Catalytic activity/Vol]50 U/L32 - 126 U/[facility] [place]ALT [Catalytic activity/Vol]13 U/L9 - 48 U/[facility] OhioAnion gap [Moles/Vol]13 mmol/L7 - 17 mmol/[facility] OhioAST [Catalytic activity/Vol]12 U/L10 - 39 U/[facility] OhioBilirubin [Mass/Vol]0.3 mg/dLNINF - 1.5 mg/dLOSSamaritan North Health CenterCalcium [Mass/Vol]10 mg/dL8.6 - 10.5 mg/dLOSSamaritan North Health Center Chloride [Moles/Vol]103 mmol/L98 - 108 mmol/[facility] OhioCO2 [Moles/Vol]29 mmol/L21 - 31 mmol/[facility] OhioCreatinine [Mass/Vol] 0.58 mg/dL0.50 - 1.20 mg/dLCleveland Clinic Marymount HospitaleGFR, CKD-EPI, Female- PINF [facility] HospitalComment on above:Reported eGFR is based on the CKD-EPI 2020 equation using creatinine, age, and sex.Glucose [Mass/Vol]77 mg/dL70 - 179 mg/dLOSSamaritan North Health CenterOsmolality Calc [Osmolality]292[facility] CenterPotassium [Moles/Vol]4.8 mmol/L3.5 - 5.0 mmol/[facility]U [facility] Protein [Mass/Vol]7.6 g/dL6.4 - 8.3 g/dLOSRiverside Methodist Hospitalodium [Moles/Vol]140 mmol/L135 - 145 mmol/[facility] OhioUrea nitrogen [Mass/Vol]10 mg/dL7 - 25 mg/dLCleveland Clinic Marymount HospitalUrea nitrogen/Creatinine [Mass ratio]17 mg/mgOSSamaritan North Health CenterAlbumin [Mass/Vol]4.9 g/dLNormal 3.5-5.0T[facility] Medical CenterComment on above:Performed By: #### YABIBO #### [facility] (DEFAULT) [address] [place] [address] 41039GOB [Catalytic activity/Vol]50 U/SRbmmxz95-722MbsjTogus Va Medical CenterComment on above:Performed By: #### YALDO #### [facility] (DEFAULT) [address] [place] [address] 23708VPL [Catalytic activity/Vol]13 U/LNormal9-48T[facility] Medical CenterComment on above:Performed By: #### YALDO #### [facility] (DEFAULT) [address] [place] [address] 19670Jkgzc gap [Moles/Vol]13 mmol/LNormal7-17[facility] Medical CenterComment on above:Performed By: #### YALDO #### [facility] (DEFAULT) [address] [place] [address] 48828PDT [Catalytic activity/Vol]12 U/VZfkwpm50-92NdphTogus Va Medical CenterComment on above:Performed By: #### STEPHON #### [facility] (DEFAULT) [address] [place] [address] 50743Zbrqrhkue [Mass/Vol]0.3 mg/dLNormal<1.5[facility] Medical CenterComment on above:Performed By: #### ESTEBANO #### [facility] (DEFAULT) [address] [place] [address] 08592Zwskkmt [Mass/Vol]10.0 mg/dLNormal8.6-10.5[facility] Medical CenterComment on above:Performed By: #### ESTEBANO #### [facility] (DEFAULT) [address] [place] [address] 95430Ejxynnbo [Moles/Vol]103 mmol/IHitlui12-469EahvTogus Va Medical CenterComment on above:Performed By: #### ESTEBANO #### [facility] (DEFAULT) [address] [place] [address] 93362DT3 [Moles/Vol]29 mmol/WZqyugm81-35QthiTogus Va Medical CenterComment on above:Performed By: #### ESTEBANO #### [facility] (DEFAULT) [address] [place] [address] 73318Flniycnvxz [Mass/Vol]0.58 mg/dLNormal0.50-1.20[facility] CenterComment on above:Performed By: #### ESTEBANO #### [facility] (DEFAULT) [address] [place] [address] 70928hHUU, CKD-EPI, Female>Normal>=60T[facility] Va Medical CenterComment on above:Result Comment: Reported eGFR is based on the CKD-EPI 2020 equation using creatinine, age, and sex.Performed By: #### ESTEBANO #### [facility] (DEFAULT) [address] [place] [address] 54731Vtxcgdg [Mass/Vol]77 mg/dLNormalNonfastin-179 mg/dL; Fastin-99[facility] Medical CenterComment on above: Performed By: #### STEPHON #### [facility] (DEFAULT) [address] [place] [address] 36918Nygurtahsw [Osmolality]292 mosm/mmBojfax807-249QjabTogus Va Medical CenterComment on above:Performed By: #### STEPHON #### [facility] (DEFAULT) [address] [place] [address] 73498Nbmdbmqml [Moles/Vol]4.8 mmol/LNormal3.5-5.0[facility] CenterComment on above:Performed By: #### ESTEBANO #### [facility] (DEFAULT) [address] [place] [address] 41012[place]oxpaw [Mass/Vol]7.6 g/dLNormal6.4-8.3[facility] CenterComment on above:Performed By: #### ESTEBANO #### [facility] (DEFAULT) [address] [place] [address] 47365Isfbzd [Moles/Vol]140 mmol/YNcwsje545-007AwolTogus Va Medical CenterComment on above:Performed By: #### ESTEBANO #### [facility] (DEFAULT) [address] [place] [address] 39642Rnyd nitrogen [Mass/Vol]10 mg/dLNormal7-25[facility] Medical CenterComment on above:Performed By: #### ESTEBANO #### [facility] (DEFAULT) [address] [place] [address] 80024Hdql nitrogen/Creatinine [Mass ratio]17 mg/mgNormalOhiAdams County HospitalComment on above:Performed By: #### ESTEBANO #### [facility] (DEFAULT) [address] [place] [address] 55333KXMRGU CITRULLINATE PEPTIDE ABOrdered By: Anna Hwang on 79-91-7311Gxefds citrullinated peptide Ab IA Qn (S)U/mLNINF - 5.00 U/mLOSU [facility] General Health CenterInterpretation and review of laboratory resultsNormOhioHealth Mansfield HospitalOSSamaritan North Health CenterCYCLIC CITRULLINATE PEPTIDE ABon 82-09-8428Iqkcbb Citrullinated Peptide Ab<0.54Normal<5.00T[facility] Medical CenterComment on above:Performed By: #### YCCP #### [facility] (DEFAULT) [address] [place] [address] 43511Wo Panel Informationon 04-90-0310Vplqlrwbyuvila and review of laboratory resultsNormOhioHealth Mansfield HospitalOSU [facility] Health CenterOSSamaritan North Health CenterRHEUMATOID FACTOROrdered By: Georgina Ferguson on 12-21-2024 Interpretation and review of laboratory resultsNoMartins Ferry Hospital Rheumatoid factor QnNINFOSU [facility] RHEUMATOID FACTORon 76-21-1184Jlvaogosgm Factor<10Normal<=14T[facility] Medical CenterComment on above:Performed By: #### YALDO #### [facility] (DEFAULT) [address] [place] [address] 61585GDYDEQEONEJQR RATE, AUTOMATEDon 70-32-2966BVE (Bld) [Velocity] 10 mm/hNINFU [facility] CenterInterpretation and review of laboratory resultsNoMartins Ferry HospitalOSSamaritan North Health CenterESR Mxnxtfjkvw40 mm/hrNormal<20[facility] CenterComment on above: Performed By: #### ESR #### [facility] (DEFAULT) [address] [place], [place] [address]KTOORBBVAZ REFLEX TO CULTURE PERFORMABLEon 12-21-2024 Appearance (U)ClearNormalClearTogus Va Medical CenterComment on above:Performed By: #### [id number] #### [facility] (DEFAULT) [address] [place], [place] [address]BpgrcctoXHZNZYLrqecuKXMBURElriTogus Va Medical CenterComment on above:Performed By: #### [id number] #### [facility] (DEFAULT) [address] [place] [address] 88548Mrlrb UrineNegativeNormalNegativeTogus Va Medical CenterComment on above:Performed By: #### [id number] #### [facility] (DEFAULT) [address] [place] [address] 79015Aplco (U)YellowNormalYellowTogus Va Medical CenterComment on above:Performed By: #### [id number] #### [facility] (DEFAULT) [address] [place] [address] 11285Mcmmebv Ql (U)NegativeNormalNegativeTogus Va Medical CenterComment on above:Performed By: #### [id number] #### [facility] (DEFAULT) [address] [place] [address] 82262Yshbcev Ql (U)NegativeNormalNegProvidence HospitalComment on above:Performed By: #### [id number] #### [facility] (DEFAULT) [address] [place] [address] 67735Yhlyxnger esterase Test strip Ql (U)NegativeNormalNegProvidence HospitalComment on above:Performed By: #### [id number] #### [facility] (DEFAULT) [address] [place] [address] 15132Tmhhwjxf UrineNegativeNormalNegativeTogus Va Medical CenterComment on above:Performed By: #### [id number] #### [facility] (DEFAULT) [address] [place] [address] 53501gG (U)5.0 [pH]Normal5.0-7.0T[facility] Medical CenterComment on above:Performed By: #### [id number] #### [facility] (DEFAULT) [address] [place] [address] 11884Glsexcd UrineNegativeNormalNegProvidence HospitalComment on above:Performed By: #### [id number] #### [facility] (DEFAULT) [address] [place] [address] 97096KAH Wjmnf4-2Gqnwdo8-9OgatTogus Va Medical CenterComment on above:Performed By: #### [id number] #### [facility] (DEFAULT) [address] [place] [address] 07633Ksnrvbbx [place] Urine1.782Vmmexg1.001-1.035[facility] Medical CenterComment on above:Performed By: #### [id number] #### [facility] (DEFAULT) [address] [place] [address] 71814Uguzefek/Epithelial Cells, Urine3-5/hpf = 1+Normal0-2/hpf, 3- 5/hpf = 1+[facility] Medical CenterComment on above:Performed By: #### [id number] #### [facility] (DEFAULT) [address] [place] [address] 82217Mjylxtqhrldx Urine0.2 E.U./dLNormal0.2 E.U/dL, 1.0 E.U/dLTogus Va Medical CenterComment on above:Performed By: #### [id number] #### [facility] (DEFAULT) [address] [place] [address] 24834NMR Urine0 - 5Degzlw3 - 5Tog[facility] Va Medical CenterComment on above:Performed By: #### [id number] #### [facility] (DEFAULT) [address] [place] [address] 24164EKZTZ PROTEIN/CREA RATIO, RANDOMon 24-33-5275Zjswleyqju (24H U) [Mass/Vol]134.51 mg/dLOSU [facility] General Health CenterProtein Unsp time (U) [Mass/Vol]6 mg/dLOSU [facility] Health CenterProtein/Creatinine (U) [Mass ratio] 0.045 mg/mgOSU [facility] General Health CenterOS[facility] Health CenterCreatinine (U) [Mass/Vol]134.51 mg/dLNoalOhiAdams County HospitalComment on above:Performed By: #### ESR #### [facility] (DEFAULT) [address] [place] [address] 22235Yskg/Creat Ratio0.045 mg/mgEast Liverpool City HospitalComment on above:Performed By: #### ESR #### [facility] (DEFAULT) [address] [place], [place] [address]Wrkxopy Ql (U)6 mg/dLEast Liverpool City HospitalComment on above:Performed By: #### ESR #### [facility] (DEFAULT) [address] [place], [place] [address]Cn Panel Informationon 35-81-2370KIIFEYOPFWHFZK EPIDERMIDIS, HAEMOLYTICUS, LUGDUNENSIS, SAPROPHYTICUS (QSVJC1IHDX HealthcareSTAPHYLOCOCCUS EPIDERMIDIS, HAEMOLYTICUS, LUGDUNENSIS, SAPROPHYTICUS (URINANot detectedNOMS HealthcareURINARY TRACT INFECTION (HTRX)on 06-71-3811XIAUAVXWDAEGU BGQHHXRF9VEQM HealthcareACINETOBACTER BAUMANIINot detectedNOMS HealthcareCANDIDA ALBICANS, PARAPSILOSIS, ICSPASSTVV7WYZO HealthcareCANDIDA ALBICANS, PARAPSILOSIS, TROPICALISNot detectedNOMS HealthcareCANDIDA KFHEXPKQ6UARI HealthcareCANDIDA GLABRATANot detectedNOMS HealthcareCANDIDA VVNOEK2TVEC HealthcareCANDIDA KRUSEI Not detectedNOMS HealthcareCITROBACTER HSEGJRKG6KTZW HealthcareCITROBACTER FREUNDIINot detectedNOMS HealthcareENTEROBACTER AEROGENES, LQUUNMA0MRGV HealthcareENTEROBACTER AEROGENES, CLOACAENot detectedNOMS HealthcareENTEROCOCCUS FAECALIS, OAQRGTV5NOTQ HealthcareENTEROCOCCUS FAECALIS, FAECIUMNot detectedNOMS HealthcareESCHERICHIA IATZ8FASK HealthcareESCHERICHIA COLINot detectedNOMS HealthcareKLEBSIELLA PNEUMONIAE, AKCQIIW9CBGO HealthcareKLEBSIELLA PNEUMONIAE, OXYTOCANot detectedNOMS HealthcareMORGANELLA WSDKRHGZ5HTVI HealthcareMORGANELLA MORGANIINot detectedNOMS HealthcarePROTEUS MIRABILIS, PQCGLDCB1FXAA Healthcare PROTEUS MIRABILIS, VULGARISNot detectedNOMS HealthcarePSEUDOMONAS AERUGINOSA0 NOMS HealthcarePSEUDOMONAS AERUGINOSANot detectedNOMS HealthcareSERRATIA JXLUVKEJWG3GYDZ HealthcareSERRATIA MARCESCENSNot detectedNOMS Healthcare STAPHYLOCOCCUS VAYCFM0DEJU HealthcareSTAPHYLOCOCCUS AUREUSNot detectedNOMS HealthcareSTREPTOCOCCUS AGALACTIAE (GROUP B STREP)0NOMS HealthcareSTREPTOCOCCUS AGALACTIAE (GROUP B STREP)Not detectedNOMS HealthcareSTREPTOCOCCUS PYOGENES (GROUP A STREP)0NOMS HealthcareSTREPTOCOCCUS PYOGENES (GROUP A STREP)Not detectedNOMS HealthcareNOMS HealthcareUrine Cultureon 00-21-6734Oabgstze identified Cx Nom (U)>100,000 colonies/ml mixed bacterial skin contaminants 2 Days PERFORMED BY: [place] [address] PATHOLOGIST FRAMING MILL OPERATOR HELPER SULEMA CARLIN M.D.NormalBaptist Health Baptist Hospital Of Miami Physician GroupComment on above: Performed By: #### CUU #### [place] [address] USACT ABDOMEN/PELVIS WITH AND WITHOUT CONTRASTon 88-53-1815XS ABDOMEN/PELVIS WITH AND WITHOUT CONTRASTEXAM: CT ABDOMEN/PELVIS [...] error, please notify the sender immediately at [phone] and permanently delete the original report and destroy any copies or printouts.[facility] HospitalCBC AND ELECTRONIC DIFFon 58-99-2503Jdypgwrwa (Bld) [#/Vol]0.07 10*3/uL0.00 - 0.15 K/uLOSU [facility] CenterBasophils/100 WBC (Bld)0.8 %OSSamaritan North Health CenterDifferential cell count method Nom (Bld)Electronic DifferentialOSU [facility] Eosinophils (Bld) [#/Vol]0.14 10*3/uL0.00 - 0.42 K/uLCleveland Clinic Marymount Hospital Eosinophils/100 WBC (Bld)1.7 %[facility] CenterErythrocyte distribution width (RBC) [Ratio]12.6 %10.8 - 14.9 %OSSamaritan North Health CenterHematocrit (Bld) [Volume fraction]41.5 %34.9 - 44.3 %[facility] HospitalHemoglobin (Bld) [Mass/Vol]13.7 g/dL11.4 - 15.2 g/dLOSSamaritan North Health CenterImmature granulocytes (Bld) [#/Vol]K/uLNINF - 0.08 K/uLOSSamaritan North Health CenterImmature granulocytes/100 WBC (Bld)0.2 %OSSamaritan North Health CenterInterpretation and review of laboratory resultsAbnormalOSU [facility] General Health CenterLymphocytes (Bld) [#/Vol]2.59 10*3/uL1.16 - 3.51 K/uLOS[facility] CenterLymphocytes/100 WBC (Bld)31 %OSSamaritan North Health CenterMCH (RBC) [Entitic mass]28 pg25.9 - 33.9 pgOSU Southwest General Health CenterMCHC (RBC) [Mass/Vol]33 g/dL31.4 - 35.9 g/dLCleveland Clinic Marymount HospitalMCV (RBC) [Entitic vol]84.7 fL79.6 - 97.7 [facility] HospitalMonocytes (Bld) [#/Vol]0.6 10*3/uL0.22 - 0.87 K/[facility] TownshipMonocytes/100 WBC (Bld)7.2 %[facility] HospitalNeutrophils (Bld) [#/Vol]4.93 10*3/uL1.64 - 7.28 K/[facility] TownshipNucleated RBC/100 WBC (Bld) [Ratio]0 %Wilson HealthPlatelet mean volume (Bld) [Entitic vol]9.4 fL8.5 - 12.2 [facility] HospitalPlatelets (Bld) [#/Vol] 395 10*3/cWPugl103 - 393 K/[facility] TownshipRBC (Bld) [#/Vol]4.9 10*6/uLSt. Mary's Medical Center, Ironton Campusegmented neutrophils/100 WBC (Bld)59.1 %[facility] HospitalWBC (Bld) [#/Vol]8.35 10*3/uL3.99 - 11.19 K/[facility] HospitalBasophils (Bld) [#/Vol]0.07 10*3/uLNormal 0.00-0.15T[facility] Va Medical CenterComment on above:Performed By: #### [id number] #### [facility] (DEFAULT) [address] [address]Rafbktqfx/100 WBC (Bld)0.8 %NormalTogus Va Medical CenterComment on above:Performed By: #### [id number] #### [facility] (DEFAULT) [address] [place], [place] [address]KRUC STATUSElectronic DifferentialNormalOGreene Memorial HospitalComment on above:Performed By: #### [id number] #### [facility] (DEFAULT) [address] [place] [address] 53168Ocbeljhzekl (Bld) [#/Vol]0.14 10*3/uLNormal0.00-0.42T[facility] Medical CenterComment on above:Performed By: #### [id number] #### [facility] (DEFAULT) [address] [place] [address] 72571Xlqzyvjnlog/100 WBC (Bld)1.7 %NormalTogus Va Medical CenterComment on above:Performed By: #### [id number] #### [facility] (DEFAULT) [address] [place] [address] 96733Tbqvxnrvpl (Bld) [Volume fraction]41.5 %Smrvak16.9-44.3T[facility] Medical CenterComment on above:Performed By: #### [id number] #### [facility] (DEFAULT) [address] [place] [address] 17349Jeqqvctbqu (Bld) [Mass/Vol]13.7 g/kVMvbele21.4-15.2[facility] CenterComment on above:Performed By: #### [id number] #### [facility] (DEFAULT) [address] [place] [address] 57142Bsbejqmo Grans %0.2 %[facility] HospitalComment on above:Performed By: #### [id number] #### [facility] (DEFAULT) [address] [place] [address] 65970Aywmuapj Grans Absolute<Normal<=0.08T[facility] Va Medical CenterComment on above:Performed By: #### [id number] #### [facility] (DEFAULT) [address] [place] [address] 02902Zjrchgkjgxz (Bld) [#/Vol]2.59 10*3/uLNormal1.16-3.51[facility] Medical CenterComment on above:Performed By: #### [id number] #### [facility] (DEFAULT) [address] [place] [address] 13595Qdyzdvctlet/100 WBC (Bld)31.0 %[facility] HospitalComment on above:Performed By: #### [id number] #### [facility] (DEFAULT) [address] [place] [address] 66129OYI (RBC) [Entitic vol]84.7 xBXxxscd22.6-97.7T[facility] Medical CenterComment on above:Performed By: #### [id number] #### [facility] (DEFAULT) [address] [place] [address] 85042Bvec Cell Hgb28.0 zyKhqqeg28.9-33.9[facility] Medical CenterComment on above:Performed By: #### [id number] #### [facility] (DEFAULT) [address] [place] [address] 94569Euhk Cell Hgb Conc33.0 g/fGGehlxn48.4-35.9[facility] Medical CenterComment on above:Performed By: #### [id number] #### [place] [facility] (DEFAULT) [address] [place] [address] 82158Tcrtflvvr (Bld) [#/Vol]0.60 10*3/uLNormal0.22-0.87Tog[facility] Va Medical CenterComment on above:Performed By: #### [id number] #### [facility] (DEFAULT) [address] [place] [address] 22968Nixuluvnp/100 WBC (Bld)7.2 %NormalTogus Va Medical CenterComment on above:Performed By: #### [id number] #### [facility] (DEFAULT) [address] [place] [address] 32129Raepgjyum RBC0.0 /100 WBCNormal<=0.2T[facility] Va Medical CenterComment on above:Performed By: #### [id number] #### [facility] (DEFAULT) [address] [place] [address] 07137Vifjdvhd mean volume (Bld) [Entitic vol]9.4 fLNormal8.5-12.2 [facility] Va Medical CenterComment on above:Performed By: #### [id number] #### [facility] (DEFAULT) [address] [place] [address] 01007Uwblgofuj (Bld) [#/Vol]395 10*3/lQIdeq592-895JnlwTogus Va Medical CenterComment on above:Performed By: #### [id number] #### [facility] (DEFAULT) [address] [place] [address] 95638HIM (Bld) [#/Vol]4.90 10*6/uLNormal3.91-5.04[facility] Va Medical CenterComment on above:Performed By: #### [id number] #### [facility] (DEFAULT) [address] [place] [address] 90312TLC Tngfnkwlszsk83.6 %Wzngfd91.8-14.9T[facility] Va Medical CenterComment on above:Performed By: #### [id number] #### [facility] (DEFAULT) [address] [place] [address] 20692Qbqt + Bands Auto59.1 %NormalTogus Va Medical CenterComment on above:Performed By: #### [id number] #### [facility] (DEFAULT) [address] [place] [address] 75513Mzry + Bands,Absolute Auto4.93 K/uLNormal1.64-7.28[facility] Va Medical CenterComment on above:Performed By: #### [id number] #### [facility] (DEFAULT) [address] [place] [address] 59813WJT (Bld) [#/Vol]8.35 10*3/uLNormal3.99-11.19[facility] Va Medical CenterComment on above:Performed By: #### [id number] #### [facility] (DEFAULT) [address] [place] [address] 23701HMPYRSSLZZHC Aon 09-07-5059Wipxaqlneehw A74 ng/mLNormal<93T[facility] Va Medical CenterComment on above:Result Comment: ADDITIONAL INFORMATION The testing method is a homogeneous time-resolved immunofluorescent assay manufactured by [employer] and performed on the [employer] Cloud Kryptor Compact Plus. Values obtained with different [...] examination and other findings. Test Performed by: [place] [address] [employer] Supervisor: Jami Sher Ph.D.; CLIA# [id number] By: #### YCHGRA #### [facility] (DEFAULT) [address] [place], [place] [address]COMPREHENSIVE METABOLIC PANELon 04-87-9716Hcwmkok [Mass/Vol] 5.1 g/dLHigh3.5 - 5.0 g/dLOSU [facility] Health CenterALP [Catalytic activity/Vol] 56 U/L32 - 126 U/L[facility] CenterALT [Catalytic activity/Vol]12 U/L9 - 48 U/[facility]ENTERU [facility] CenterAnion gap [Moles/Vol]14 mmol/L7 - 17 mmol/[facility]ENTERU [facility] CenterAST [Catalytic activity/Vol]12 U/L10 - 39 U/[facility] OhioBilirubin [Mass/Vol]0.5 mg/dLNINF - 1.5 mg/dLOSU [facility] CenterCalcium [Mass/Vol]9.7 mg/dL8.6 - 10.5 mg/dLOSU [facility] Chloride [Moles/Vol]104 mmol/L98 - 108 mmol/[facility]ENTERU [facility] CenterCO2 [Moles/Vol]25 mmol/L21 - 31 mmol/[facility] OhioCreatinine [Mass/Vol] 0.7 mg/dL0.50 - 1.20 mg/dLCleveland Clinic Marymount HospitaleGFR, CKD-EPI, Female- PINF [facility] HospitalComment on above:Reported eGFR is based on the CKD-EPI 2020 equation using creatinine, age, and sex.Glucose [Mass/Vol]70 mg/dL70 - 99 mg/dLCleveland Clinic [facility] HospitalInterpretation and review of laboratory results AbnormalOSU [facility] General Health CenterOsmolality Calc [Osmolality]288OSSamaritan North Health CenterPotassium [Moles/Vol]4 mmol/L3.5 - 5.0 mmol/[facility] OhioProtein [Mass/Vol]8.1 g/dL6.4 - 8.3 g/dLSt. Mary's Medical Center, Ironton Campusodium [Moles/Vol]139 mmol/L135 - 145 mmol/[facility] OhioUrea nitrogen [Mass/Vol]11 mg/dL7 - 25 mg/dLCleveland Clinic Marymount HospitalUrea nitrogen/Creatinine [Mass ratio]16 mg/mgCleveland Clinic Mary[facility] HospitalAlbumin [Mass/Vol]5.1 g/dLHigh 3.5-5.0T[facility] Va Medical CenterComment on above:Performed By: #### MOSES CAZARESN #### [facility] (DEFAULT) [address] [place] [address] 72754FOD [Catalytic activity/Vol]56 U/CLcnxwn44-880ObkhTogus Va Medical CenterComment on above:Performed By: #### MOSES CAZARESN #### [facility] (DEFAULT) [address] [place], [place] [address]XUT [Catalytic activity/Vol]12 U/LNormal9-48T[facility] Va Medical CenterComment on above:Performed By: #### MOSES CAZARESN #### [facility] (DEFAULT) [address] [place], [place] [address]Iyrih gap [Moles/Vol]14 mmol/LNormal7-17[facility] Va Medical CenterComment on above:Performed By: #### MOSES CAZARESN #### [facility] (DEFAULT) [address] [place] [address] 19671KIK [Catalytic activity/Vol]12 U/QEehseb59-60RuwiTogus Va Medical CenterComment on above:Performed By: #### MOSES CAZARESN #### [facility] (DEFAULT) [address] [place] [address] 04512Dcfpguzab [Mass/Vol]0.5 mg/dLNormal<1.5T[facility] Va Medical CenterComment on above:Performed By: #### MOSES CAZARESN #### [facility] (DEFAULT) [address] [place] [address] 54444Wetivvw [Mass/Vol]9.7 mg/dLNormal8.6-10.5[facility] Va Medical CenterComment on above:Performed By: #### MOSES CAZARESN #### [facility] (DEFAULT) [address] [place] [address] 99356Mmalonez [Moles/Vol]104 mmol/AGvbybj00-937BjxrTogus Va Medical CenterComment on above:Performed By: #### MOSES CAZARESN #### [facility] (DEFAULT) [address] [place] [address] 91629HC7 [Moles/Vol]25 mmol/MJjdkot22-18DnvsTogus Va Medical CenterComment on above:Performed By: #### SAGE CMPN #### [facility] (DEFAULT) [address] [place] [address] 90023Kxcjmovvrw [Mass/Vol]0.70 mg/dLNormal0.50-1.20[facility] Medical CenterComment on above:Performed By: #### SAGE CMPN #### [facility] (DEFAULT) [address] [place] [address] 17805lZOV, CKD-EPI, Female>Normal>=60OhOhioHealth Grant Medical CenterComment on above:Result Comment: Reported eGFR is based on the CKD-EPI 2020 equation using creatinine, age, and sex.Performed By: #### MOSES CAZARESN #### [facility] (DEFAULT) [address] [place] [address] 02264Allbjdn [Mass/Vol]70 mg/vZGuyfxq20-13DrjgTogus Va Medical CenterComment on above:Performed By: #### MOSES CAZARESN #### [facility] (DEFAULT) [address] [place] [address] 38414Tgroiivlbm [Osmolality]288 mosm/zpFkbwyh433-533QjoiTogus Va Medical CenterComment on above:Performed By: #### MOSES CAZARESN #### [facility] (DEFAULT) [address] [place] [address] 31288Dmcwpblyx [Moles/Vol]4.0 mmol/LNormal3.5-5.0T[facility] Va Medical CenterComment on above:Performed By: #### MOSES CAZARESN #### [facility] (DEFAULT) [address] [place] [address] 11153Qkgrhzs [Mass/Vol]8.1 g/dLNormal6.4-8.3T[facility] Va Medical CenterComment on above:Performed By: #### SAGE CMPN #### [facility] (DEFAULT) [address] [place] [address] 63364Ewjehu [Moles/Vol]139 mmol/ONpwmrn111-300IfhtTogus Va Medical CenterComment on above:Performed By: #### SAGE CMPN #### [facility] (DEFAULT) [address] [place] [address] 62393Edid nitrogen [Mass/Vol]11 mg/dLNormal7-25T[facility] Va Medical CenterComment on above:Performed By: #### SAGE, CMPN #### [facility] (DEFAULT) [address] [place] [address] 64819Shal nitrogen/Creatinine [Mass ratio]16 mg/mgNormalOhiAdams County HospitalComment on above:Performed By: #### SAGE, MOSESN #### [facility] (DEFAULT) [address] [place], [place] [address]URCFJFA DEHYDROGENASEon 05-81-4589Azlculqubgqohp and review of laboratory resultsNormalODunlap Memorial HospitalLDH Lactate to pyruvate reaction [Catalytic activity/Vol]110 U/L100 - 190 U/LOSU [facility] CenterLD Zptlm055 U/CMrexqk932-194UaqdTogus Va Medical CenterComment on above:Performed By: #### SAGE, MOSESN #### [facility] (DEFAULT) [address] [place], [place] [address]As Panel Informationon 62-88-5848WRW [facility] IGP,APTIMA HPV,AGE GDLNon 86-58-1502HUS GDLN ACOG TESTINGNote.[facility] Comment on above:TESTS RESULT FLAG UNITS REF RANGE LAB Clinician Provided Cytology Information Source.............Cervix;Endocervix No. of containers..01 ThinPrep Vial Age Algo ACOG Joyce... -16 08 FLAG LEGEND: L-Low Normal,H-High Normal,LL-Alert Low,HH-Alert High <-Panic Low,>-Panic High,A-Abnormal,AA-Critical Abnormal Performed at: 01 =[facility] [address] [place] [address] Dina Jaimes MD, IGP, RFX APTIMA HPV ASCUNote.NOMS HealthcareComment on above:TESTS RESULT FLAG UNITS REF RANGE LAB DIAGNOSIS: 02 NEGATIVE FOR INTRAEPITHELIAL LESION OR MALIGNANCY. Specimen adequacy: 02 Satisfactory for evaluation. No endocervical component is identified. Performed by: 02 Eula Ramesh System Archive Analyst (ASC) . 02 Note: Note 02 The [...] Low,>-Panic High,A-Abnormal,AA-Critical Abnormal Performed at: [address] [facility] [address] [address] Dina Jaimes MD, Performed at: = - [facility] [address] [id number] [employer] Supervisor: Dina Jaimes MD, Phone: [phone] Performed at: WB - [facility] [address] [place], [place] [id number] [employer] Supervisor: Dina Jaimes MD, Phone: [phone] BRUSH-SPATULA CERVIX ENDOCERVIX CLINISYNCNOMS HealthcareEGD / Colonoscopyon 23-25-7420UtqVvhaesDayton VA Medical Center Pathology Request for Lab Corpon 19-50-4200Drnryakjg Request for Lab CorpNormal The [facility] Physician GroupComment on above:Order Comment: PATHOLOGY GI SPECIMENResult Comment: See report. Scanned copy available in EMR. PERFORMED BY: [place] [address] PATHOLOGIST FRAMING MILL OPERATOR HELPER FELY STODDARD M.D.Performed By: #### PATH TO [facility] #### [place] [address] USASurgical Pathologyon 17-45-2685CkuCxmvlgDayton VA Medical CenterNUC PET NEUROENDOCRINEon 44-21-5263TVS PET NEUROENDOCRINEEXAM: NUC PET NEUROENDOCRINE, 04/25/2024 10:37 [...] body to suggest recurrent or metastatic disease [facility]PT Skull base to mid-thighon 04-25-2024 IMPRESSION: [...] suggest recurrent or metastatic disease [facility] HospitalRadiology Study observation (narrative)[facility] HospitalPT Skull base to mid-thighOrdered By: Marcella Sharma on 04-25-2024 [facility] HospitalCT ABDOMEN/PELVIS WITH AND WITHOUT CONTRASTon 58-91-6532KY ABDOMEN/PELVIS WITH AND WITHOUT CONTRASTEXAM: CT ABDOMEN/PELVIS [...] metastatic disease in the abdomen and pelvis. NPremier Health Upper Valley Medical CenterCT Abdomen and Pelvis WO and W contrast IV on 48-40-1318AXFSORFQBJ: No evidence of metastatic disease in the [...] metastatic disease in the abdomen and pelvis. [facility] HospitalRadiology Study observation (narrative)[facility] CenterCT Abdomen and Pelvis WO and W contrast IVOrdered By: Mandi Montiel on 51-27-4687DVSCleveland Clinic [facility] Hospital Work Phone: us breast BI limitedon 36-75-7184KV breast BI limited [facility] Main [place] [address] [place] [address] Ultrasound Report Signed Patient: Zainab Granados MR#: [id number] : 1995 Acct:[id number] Age/Sex: 28 / F ADM Date: 04/03/24 Loc: [facility] Room: Type: [facility] Attending Dr: Erin Whiteside BILLING COORDINATOR-C Ordering Provider: Erin Whitesied CNP Date of Service: 04/03/24 US/US breast BI limited: N63.0 Copies to: Erin Whiteside CNP BILATERAL COMPLETE BREAST ULTRASOUND CLINICAL DATA: Bilateral palpable breast lumps COMPARISON: September 23, 2022 mammogram and ultrasound from [facility] Real-time ultrasound evaluation of all 4 [...] Beata Anthony M.D.04/03/2024 12:09 PM Dictation Location: [facility] Tech: Johana Edmonds Transcribed By: JOSE ELIAS 04/03/24 1209 Dictated By: Beata Anthony MD 04/03/24 0958 Signed By: 04/03/24 1209[facility] Physician GroupUS Thyroid glandon 75-71-8000[place] [address] Ultrasound Report Signed Patient: ZAINAB SWIFT MR#: [id number] : 1995 Acct:[id number] Age/Sex: 28 / F ADM Date: 12/22/23 Loc: US Attending Dr: Elayne Bush Ordering Physician: Elayne Bush Date of Service: 12/22/23 Procedure(s): US thyroid Accession Number(s): [id number] cc: Elayne Bush; ERIN WHITESIDE [place] [address] Patient Name: ZAINAB SWIFT MRN: [id number] date: 1995 Sex: F Assigned Patient Location: [facility] Accession/Order Number: [id number] Exam Date: 12/22/2023 17:34 Report Date: 12/24/2023 [...] Signed By: 06/02/08 813 DD/ 9 TD/TT: Medical Insurance Claims Specialist:CLARIadiologconstance, Radiologist, - 12/24/[address] [address] Ultrasound Report Signed Patient: ZAINAB SWIFT MR#: [id number] : 1995 Acct:[id number] Age/Sex: 28 / F ADM Date: 12/22/23 Loc: US Attending Dr: Elayne Bush Ordering Physician: Elayne Bush Date of Service: 12/22/23 Procedure(s): US thyroid Accession Number(s): [id number] cc: Elayne Bush; ERIN WHITESIDE [place] [id number] Patient Name: ZAINAB SWIFT MRN: [id number] date: 1995 Sex: F Assigned Patient Location: [place] [facility] Accession/Order Number: [id number] Exam Date: 12/22/2023 17:34 Report Date: 12/24/2023 [...] M.D. Signed By: 12/24/23812 DD/ 9 TD/TT: Medical Insurance Claims Specialist: ALBERTO HealthcareRadiology Study observation (narrative)ALBERTO HealthcareUS Thyroid glandOrdered By: Radiologist Radiology on 18-73-7501OT[facility] Work Phone: alpha 1 ANTITRYPSINon 52-71-6690Yixsl 1 antitrypsin [Mass/Vol]125 mg/dL84 - 218 mg/dLCleveland Clinic Marymount HospitalCERULOPLASMINon 28-79-4917Vvxdvhbusivgu [Mass/Vol]31 mg/dL20 - 60 mg/dLCleveland Clinic [facility] Hospital CHEM 7 (LYTES,BUN,CREA,GLUC)on 55-26-2440Azbqx gap [Moles/Vol]17 mmol/L7 - 17 mmol/[facility] OhioChloride [Moles/Vol]102 mmol/L98 - 108 mmol/[facility] OhioCO2 [Moles/Vol]26 mmol/L21 - 31 mmol/[facility] OhioCreatinine [Mass/Vol]0.55 mg/dL0.50 - 1.20 mg/dLCleveland Clinic [facility] Hospital eGFR, CKD-EPI, Female- PINLakeHealth TriPoint Medical CenterComment on above:Reported eGFR is based on the CKD-EPI 2020 equation using creatinine, age, and sex. Glucose [Mass/Vol]123 mg/tYGqcx12 - 99 mg/dLCleveland Clinic Marymount HospitalOsmolality Calc [Osmolality]294OSSamaritan North Health CenterPotassium [Moles/Vol]3.8 mmol/L3.5 - 5.0 mmol/Wilson Healthodium [Moles/Vol]141 mmol/L135 - 145 mmol/[facility] OhioUrea nitrogen [Mass/Vol]7 mg/dL7 - 25 mg/dLCleveland Clinic Marymount HospitalUrea nitrogen/Creatinine [Mass ratio]13 mg/mgCleveland Clinic [facility] HospitalFERRITINon 38-26-0030Zhsdsxfz [Mass/Vol]26.5 ng/mL7.3 - 270.7 ng/mLCleveland Clinic [facility] HospitalInterpretation and review of laboratory results NormalOSSamaritan North Health CenterOSSamaritan North Health CenterHEPATIC FUNCTION PANELon 73-65-0947Cvlruji [Mass/Vol]4.7 g/dL3.5 - 5.0 g/dLCleveland Clinic [facility] HospitalALP [Catalytic activity/Vol]67 U/L32 - 126 U/LOSU [facility] CenterALT [Catalytic activity/Vol]68 U/LHigh9 - 48 U/[facility] CenterAST [Catalytic activity/Vol]42 U/LHigh10 - 39 U/[facility]ENTERU [facility] CenterBilirubin [Mass/Vol]0.5 mg/dLNINF - 1.5 mg/dLOSU [facility] Health CenterBilirubin.direct [Mass/Vol]0.1 mg/dLNINF - 0.3 mg/dLOSU [facility] CenterProtein [Mass/Vol] 7.4 g/dL6.4 - 8.3 g/dLOSU [facility] Health CenterIRON/IRON BINDING/TRANSFERRINon 89-75-8575Mayahqhgabxkkw and review of laboratory resultsNoMartins Ferry HospitalIron [Mass/Vol]79 ug/dLOSU [facility] CenterIron binding capacity [Mass/Vol]346OS[facility] CenterIron saturation [Mass fraction]23 %20 - 55 %[facility] CenterTransferrin [Mass/Vol]277 mg/dL200 - 400 mg/dLOSSamaritan North Health CenterNo Panel Informationon 46-18-3355Bxkfjivofeqcys and review of laboratory resultsAbnoBrea Community HospitalInterpretation and review of laboratory resultsNoBrea Community HospitalPROTIME-INRon 77-01-8565VEG Coag (Bld) [Relative time]1.0 {INR}0.9 - 1.1[facility] HospitalInterpretation and review of laboratory resultsNoMartins Ferry HospitalPT Coag (PPP) [Time] 13.4 sOSU [facility] Children's HospitalTSHon 11-26-2023 Interpretation and review of laboratory resultsNoMartins Ferry Hospital TSH Qn1.315 m[IU]/[facility] CENTERU [facility] Children's HospitalUS OB GROWTHon 83-74-[address] [address] Ultrasound Report Signed Patient: ZAINAB SWIFT MR#: [id number] : 1995 Acct:[id number] Age/Sex: 28 / F ADM Date: 09/20/23 Loc: [facility] Attending Dr: Ron Ruano D.O. Ordering Physician: Ron Ruano D.O. Date of Service: 09/20/23 Procedure(s): US OB growth Accession Number(s): [id number] cc: ERIN WHITESIDE ; Ron Ruano D.O. [place] [address] Patient Name: ZAINAB SWIFT MRN: [facility]:[id number] date: 1995 Sex: F Assigned Patient Location: [facility] Current Patient Location: Accession/Order Number: [id number] Exam Date: 09/20/2023 15:05 Report Date: 09/21/2023 [...] Signed By: 09/21/23 0701 DD/ 0658 TD/TT: Medical Insurance Claims Specialist:TBHRadiology, Radiologist, - 09/21/2023 [place] [address] Ultrasound Report Signed Patient: ZAINAB SWIFT MR#: [id number] : 1995 Acct:[id number] Age/Sex: 28 / F ADM Date: 09/20/23 Loc: [facility] Attending Dr: Ron Ruano D.O. Ordering Physician: Ron Ruano D.O. Date of Service: 09/20/23 Procedure(s): US OB growth Accession Number(s): [id number] cc: ERIN WHITESIDE ; Ron Ruano D.O. The [place] [address] Patient Name: ZAINAB SWIFT MRN: [id number] date: 1995 Sex: F Assigned Patient Location: [facility] Current Patient Location: Accession/Order Number: [id number] Exam Date: 09/20/2023 15:05 Report Date: 09/21/2023 [...] Signed By: 09/21/23 0701 DD/ 0658 TD/TT: Medical Insurance Claims Specialist: [facility] HospitalRadiology Study observation (narrative)[facility] HospitalUS OB GROWTHOrdered By: Radiologist Radiology on 00-71-6543[employer] Work Phone: mri ABDOMEN/PELVIS WITHOUT CONTRASTon 03-11-2023 [...] is not well visualized on this exam. [facility] CenterRadiology Study observation (narrative)[facility] CenterMRI ABDOMEN/PELVIS WITHOUT CONTRASTOrdered By: Mandi Montiel on 31-11-8574RJW [facility] Work Phone: ct Chest W contrast Jason 41-25-3317GHPCAEIOJO: Stable exam with no definite evidence of [...] I have reviewed and approved this report. [facility] CenterCT Chest W contrast IVOrdered By: Benjamin Santos on 63-39-5410USG [facility] CenterCT Chest W contrast Jason 62-84-0924Tgrcusbbt Study observation (narrative)[facility] CenterCT Neck W contrast Jason 05-96-4074KRQQFNMHEF: Examination is within normal limits. Negative for [...] for mass or adenopathy in the neck. [facility] HospitalRadiology Study observation (narrative)[facility] HospitalCT Neck W contrast IVOrdered By: Miguel Espinal on 49-48-2359LTICleveland Clinic [facility] Hospital Work Phone: cardiac echo study ProcedureOrdered By: Guerrero Carvalho on 60-52-2358Kk peak vel1.26 m/[facility] Work Phone: [phone] VTI19.98 cmOSSamaritan North Health Center Work Phone: [phone])Ascending aorta2.62 cmC[facility] Clinic [facility] Work Phone: [phone] LVOT peak oxeyrvsl5spKiMEGCleveland Clinic [facility] Work Phone: [phone])AV mean fhnuzlco4gtYdACDCleveland Clinic [facility] Work Phone: [phone] peak bepfzzqq7hvPLMWXC[facility] Work Phone: [phone] valve area2.24 cm2[facility] Work Phone: [phone] Velocity Ratio0.70[facility] Work Phone: [phone] (continuity Vmax)1.82 cm2[facility] Work Phone: [phone] (continuity VTI)2.24 cm2[facility] Work Phone: [phone] index (continuity Vmax)1.06 m/[facility] Work Phone: [phone] index (continuity VTI)1.30 cm2/m2[facility] Work Phone: [phone] e' pk vel0.15 m/[facility] Work Phone: [phone] E/e' ratio4.89[facility] Work Phone: [phone] surface area Derived from formula1.72 m2[facility] Work Phone: [phone] EF62 %[facility] Work Phone: [phone] (Vmax)0.70[facility] Work Phone: [phone] (VTI)0.86 m/2OSSamaritan North Health Center Work Phone: [phone] wave decelartion qsjq634.58msecC[facility] Clinic [facility] Work Phone: [phone]' lateral pk vel0.1597 m/[facility] Work Phone: [phone]' lateral pk vel0.16 m/[facility] Work Phone: [phone]' septal pk vel0.1401 m/[facility] Work Phone: [phone]' septal pk vel0.14 m/[facility] Work Phone: [phone]/A ratio0.74OSSamaritan North Health Center Work Phone: [phone]/e' lateral ratio4.57[facility] Work Phone: [phone]/e' septal ratio5.21[facility] Work Phone: [phone] SP 2HY00DOD [facility] Work Phone: [phone] SP 6AJ19QXICleveland Clinic [facility] Work Phone: [phone] %28 - 44 %[facility] Work Phone: [phone] ostium1.46 cmOSSamaritan North Health Center Work Phone: [phone] cmC[facility] Clinic [facility] Work Phone: [phone] AREA 2CH13.72 cm2[facility] Work Phone: [phone] area 4CH9.33 cm2[facility] Work Phone: [phone] ESV BP (MOD)29 mLOSU [facility] Work Phone: [phone] ESV BP (MOD) index17 mL/m2OSSamaritan North Health Center Work Phone: [phone] ESV SP 2CH (MOD)37 mLOSU [facility] Work Phone: LA ESV SP 4CH (MOD)19 mLCleveland Clinic [facility] Hospital Work Phone: Long Strain-21.7 %[facility] Work Phone: LV EDV BP71 [facility] Work Phone: [phone] EDV SP 2CH76 [facility] Work Phone: [phone] EDV SP 4CH61 [facility] Work Phone: [phone] ESV BP27 [facility] Work Phone: [phone] ESV SP 2CH27 [facility] Work Phone: [phone] ESV SP 4CH25 [facility] Work Phone: [phone] mass68.53 gOSSamaritan North Health Center Work Phone: [phone] Mass Index39.8 g/m2[facility] Work Phone: [phone] RWT0.30[facility] Work Phone: [phone] stroke volume BP (ml)44 [facility] Work Phone: [phone] stroke volume index BP25.58 mL/m2[facility] Work Phone: [phone] cmCleveland Clinic [facility] Work Phone: [phone] [place] [facility] Work Phone: [phone] area2.60 cm2[facility] Work Phone: [phone] diameter1.82 [facility] Work Phone: [phone] peak vel0.88 m/[facility] Work Phone: [phone] peak VTI17.19 [facility] Work Phone: [phone] stroke icdiit09 cm3[facility] Work Phone: [phone] stroke volume index25.99 ml/m2[facility] Work Phone: [phone] pk A vel0.98 m/[facility] Work Phone: [phone] pk E vel0.73 m/[facility] Work Phone: [phone] stenosis pressure 1/2 time63.10 [facility]OSSam[facility] Work Phone: [phone] valve area p 1/2 method3.49 cm2[facility] Work Phone: [phone] AV VTI RATIO PRE STRESS0.86[facility] Work Phone: [phone] ECHO LV BIPLANE SYSTOLIC VOLUME INDEX15.70 mL/m2 [facility] Work Phone: [phone] ECHO LV BP DIASTOLIC VOLUME INDEX41.28 mL/m2[facility] Work Phone: [phone] peak uuytjzyw7oeWeTGHCleveland Clinic Marymount Hospital Work Phone: [phone] PK VEL0.97 m/[facility] Work Phone: [phone] cmC[facility] Work Phone: [phone] vol index 4CH (MOD)12.79 mL/m2[facility] Work Phone: [phone] atrium volume 4 chamber method of disks22 mLCleveland Clinic Marymount Hospital Work Phone: [phone] Area eqhscfuff39.85 cm2[facility] Work Phone: [phone] Area dutbfgjr59.51 cm2[facility] Work Phone: [phone] basal diam3.02 cmC[facility] Work Phone: [phone] Fractional area xjmcke01.3 %[facility] Work Phone: [phone] long diam7.35 cmC[facility] Clinic [facility] Work Phone: [phone] Long Strain-28.0 %[facility] Work Phone: [phone] mid diam2.68 cmC[facility] Work Phone: [phone] S'12.55 cm/[facility] Work Phone: [phone] peak lwopixfi7kdPcFHQC[facility] Clinic [facility] Work Phone: [phone] peak vel0.59 m/[facility] Work Phone: [phone] [facility] Work Phone: [phone] [facility] Work Phone: [phone] Oxisxw43 cm/mLCleveland Clinic Marymount Hospital Work Phone: [phone] volume bmjou44BQQC[facility] Clinic [facility] Work Phone: [phone] [facility] Work Phone: [phone] Work Phone: [phone] echo study Procedureon 50-36-5045Xevm Ventricle: Chamber size is normal. Normal wall [...] 1.00 The left ventricular wall motion is normal.[facility] HospitalRadiology Study observation (narrative)[facility] HospitalB-TYPE NATRIURETIC PEPTIDE (BRAIN)on 83-25-4398Yfdmdevigvnswl and review of laboratory resultsNormalOSU [facility] General Health CenterNatriuretic peptide B (Bld) [Mass/Vol]4 pg/mL0 - 100 pg/mL [facility] CampusHIGH SENSITIVITY TROPONIN I - SINGLE ORDERon [id number] and review of laboratory resultsNormal [facility] HospitalTroponin I.cardiac High sensitivity method [Mass/Vol] ng/LNINF - 34 ng/LOSU [facility] HospitalMONOon 84-64-9993Seqvfhdpu (Bld) [#/Vol]NegativeNormalNEGATIVECommunity [facility] Comment on above:Performed By: #### LIVER, LDH, BMP #### [facility] [address] [place] [address] Dr. Esthela Saunders AUTO DIFFon 58-45-6310QBTP #0.1 103/ulNormal0.0-0.1The [facility] HospitalComment on above:Performed By: #### LIVER, LDH, BMP #### [facility] [address] [place] [address] Dr. Esthela StevensBasophils/100 WBC (Bld)0.8 %Normal0.2-2.0[facility] Comment on above:Performed By: #### LIVER, LDH, BMP #### [facility] [address] [place] [address] Dr. Proctor ChangEAnanda #0.1 103/ulNormal0.0-0.7The [facility] HospitalComment on above: Performed By: #### LIVER, LDH, BMP #### [facility] [address] [place] [address] Dr. Esthela Ricciosinophils/100 WBC (Bld)1.7 %Normal0.9-7.0The [facility] Comment on above:Performed By: #### LIVER, LDH, BMP #### [facility] [address] [place] [address] Dr. Esthela Riccirythrocyte distribution width (RBC) [Ratio]13.1 %Koaxsv22.0-15.0 The [facility] HospitalComment on above:Performed By: #### LIVER, LDH, BMP #### [facility] [address] [place] [address] Dr. Esthela StevensHematocrit (Bld) [Volume fraction]38.4 %Khrkjv46.0-48.0The [facility] HospitalComment on above:Performed By: #### LIVER, LDH, BMP #### [facility] [address] [place] [address] Dr. Esthela StevensHemoglobin (Bld) [Mass/Vol]12.4 g/zYEwifis76.0-16.0The [facility] HospitalComment on above:Performed By: #### LIVER, LDH, BMP #### [facility] [address] [place] [address] Dr. Esthela Mcclellan #0.02 10e3/ulNormal0.00-0.03The [facility] HospitalComment on above:Performed By: #### LIVER, LDH, BMP #### [facility] [address] [place] [address] Dr. Esthela Mcclellan %0.3 %Normal0.0-0.5The [facility] HospitalComment on above: Performed By: #### LIVER, LDH, BMP #### [facility] [address] [place] [address] Dr. Esthela Rich #2.2 103/ulNormal1.2-3.8The [facility] HospitalComment on above:Performed By: #### LIVER, LDH, BMP #### [facility] [address] [place] [address] Dr. Esthela Bonillahocytes/100 WBC (Bld)32.8 %Ubtqzm45.5-60.0The [facility] HospitalComment on above:Performed By: #### LIVER, LDH, BMP #### [facility] [address] [place] [address] Dr. Esthela LiangUAL DIFF REQNONormalThe [facility] HospitalComment on above: Performed By: #### LIVER, LDH, BMP #### [facility] [address] [place] [address] Dr. Esthela Fernando (RBC) [Entitic mass]27.1 xpGqmtll50.7-34.0The [facility] HospitalComment on above:Performed By: #### LIVER, LDH, BMP #### [facility] [address] [place] [address] Dr. Esthela Pang (RBC) [Mass/Vol]32.3 g/bHBajgbr81.9-35.2The [facility] HospitalComment on above:Performed By: #### LIVER, LDH, BMP #### [facility] [address] [place] [address] Dr. Esthela Mccarthy (RBC) [Entitic vol]83.[address] gMJivbdc64.0-99.0The [facility] Hospitalment on above:Performed By: #### LIVER, LDH, BMP #### [facility] [address] [place] [address] Dr. Esthela Jackson #0.5 103/ulNormal0.3-0.8The [facility] HospitalComment on above:Performed By: #### LIVER, LDH, BMP #### [facility] [address] [place] [address] Dr. Esthela Chanocytes/100 WBC (Bld)8.0 %Normal1.7-12.0The [facility] Comment on above:Performed By: #### LIVER, LDH, BMP #### [facility] [address] [place] [address] Dr. Esthela Bonner #3.7 103/ulNormal1.4-6.5The [facility] HospitalComment on above:Performed By: #### LIVER, LDH, BMP #### [facility] [address] [place] [address] Dr. Esthela Andersonutrophils/100 WBC (Bld)56.4 %Ulwisn38.0-75.0The [facility] Hospitalment on above:Performed By: #### LIVER, LDH, BMP #### [facility] [address] [place] [address] Dr. Esthela Pressleylet mean volume (Bld) [Entitic vol]9.3 fLCritically low 9.5-13.5The [facility] Hospitalment on above:Performed By: #### LIVER, LDH, BMP #### [facility] [address] [place] [address] Dr. Esthela StevensPLT334 103/omHtfoxz390-176Cid St. [facility] Hospitalment on above: Performed By: #### LIVER, LDH, BMP #### [facility] [address] [place] [address] Dr. Esthela StevensRBC4.58 106/ulNormal4.20-5.40The [facility] HospitalComment on above:Performed By: #### LIVER, LDH, BMP #### [facility] [address] [place] [address] Dr. Esthela DickBC6.6 103/ulNormal4.0-11.0The [facility] HospitalComment on above: Performed By: #### LIVER, LDH, BMP #### [facility] [address] [place] [address] Dr. Esthela Delgado 56-98-5444BNX846 U/JEqmadr23-083Zzf [facility] on above:Performed By: #### LIVER, LDH, BMP #### [facility] [address] [place] [address] Dr. Esthela Mendoza 48-84-0935Yajeccj [Mass/Vol]4.1 g/dLNormal3.4-5.0 The [facility] HospitalComment on above:Performed By: #### LIVER, LDH, BMP #### [facility] [address] [place] [address] Dr. Esthela StevensAlbumin/Globulin [Mass ratio]1.2 {ratio}NormalThe [facility] on above:Performed By: #### LIVER, LDH, BMP #### [facility] [address] [place] [address] Dr. Esthela Pinedo [Catalytic activity/Vol]75 U/CBbuqny12-034Yfw St. [facility] Hospitalment on above:Performed By: #### LIVER, LDH, BMP #### [facility] [address] [place] [address] Dr. Esthela Saenz [Catalytic activity/Vol]41 U/VHeiaqa86-36Rpt [facility] HospitalComment on above:Performed By: #### LIVER, LDH, BMP #### [facility] [address] [place] [address] Dr. Esthela Perez [Catalytic activity/Vol]30 U/YTolqqn94-17Ogs [facility] HospitalComment on above:Performed By: #### LIVER, LDH, BMP #### [facility] [address] [place] [address] Dr. Etshela De La CruzI, CONJUGATED0.1 mg/dLNormal0.0-0.2The [facility] Comment on above:Performed By: #### LIVER, LDH, BMP #### [facility] [address] [place] [address] Dr. Esthela StevensBilirubin [Mass/Vol]0.5 mg/dLNormal0.2-1.0The [facility] Comment on above:Performed By: #### LIVER, LDH, BMP #### [facility] [address] [place] [address] Dr. Esthela StevensGlobulin (S) [Mass/Vol]3.3 g/dLNormalThe [facility] HospitalComment on above:Performed By: #### LIVER, LDH, BMP #### [facility] [address] [place] [address] Dr. Esthela StevensProtein [Mass/Vol]7.4 g/dLNormal6.4-8.2The [facility] Comment on above:Performed By: #### LIVER, LDH, BMP #### [facility] [address] [place] [address] Dr. Esthela StevensPROF CHEM 8 (BAS METB)on 93-14-7337Hnisn gap [Moles/Vol]9.2 mmol/LNormalCommunity Memorial HospitalComment on above:Performed By: #### LIVER, LDH, BMP #### [facility] [address] [place] [address] Dr. Esthela StevensCalcium [Mass/Vol]9.0 mg/dLNormal8.5-10.1The [facility] Comment on above:Performed By: #### LIVER, LDH, BMP #### [facility] [address] [place] [address] Dr. Esthela StevensChloride [Moles/Vol]102 mmol/ORtbhxf95-092Icw [facility] Comment on above:Performed By: #### LIVER, LDH, BMP #### [facility] [address] [place] [address] Dr. Esthela StevensCO2 [Moles/Vol]27.8 mmol/SSktacu03.0-32.0The [facility] Comment on above:Performed By: #### LIVER, LDH, BMP #### [facility] [address] [place] [address] Dr. Esthela StevensCreatinine [Mass/Vol]0.63 mg/dLNormal0.55-1.02The [facility] HospitalComment on above:Performed By: #### LIVER, LDH, BMP #### [facility] [address] [place] [address] Dr. Esthela RicciGFR-AF CYPRIOT>60Normal>=60The [facility] HospitalComment on above:Performed By: #### LIVER, LDH, BMP #### [facility] [address] [place] [address] Dr. Esthela RicciGFR-NON AF CYPRIOT>60Normal>=60The [facility] HospitalComment on above:Performed By: #### LIVER, LDH, BMP #### [facility] [address] [place] [address] Dr. Esthela StevensGlucose [Mass/Vol]106 mg/zORweqyw37-131Low [facility] Comment on above:Performed By: #### LIVER, LDH, BMP #### [facility] [address] [place] [address] Dr. Esthela StevensPotassium [Moles/Vol]4.0 mmol/LNormal3.5-5.1[facility] Comment on above:Performed By: #### LIVER, LDH, BMP #### [facility] [address] [place] [address] Dr. Esthela Perezdium [Moles/Vol]135 mmol/LCritically lnj154-201Wbh [facility] HospitalComment on above:Performed By: #### LIVER, LDH, BMP #### [facility] [address] [place] [address] Dr. Esthela StevensUrea nitrogen [Mass/Vol]9.0 mg/dLNormal7.0-18.0The [facility] HospitalComment on above:Performed By: #### LIVER, LDH, BMP #### [facility] [address] [place] [address] Dr. Esthela StevensUrea nitrogen/Creatinine [Mass ratio]14.3 mg/mgNoGrant HospitalComment on above:Performed By: #### LIVER, LDH, BMP #### [facility] [address] [address] [address] Esthela StevensMG MAMM DIAGNOSTIC 3D EFREN CADon [id number] MAMM DIAGNOSTIC 3D EFREN CADPatient: ZAINAB SWIFT Exam Date: 09/23/2022 : 1995 Gender:F Ordering : [facility] Admission #: [id number] Family : Order #: [id number] CLICK HERE TO VIEW EXAM RADIOLOGY REPORT [...] cervical cancer at age 42. LOCATION: [facility] BREAST COMPOSITION: Extremely dense, which [...] by: Carolyn Walsh M.D. on 09/23/2022 at 11:31[facility] CampusUS BREAST EFREN LIMITEDon [id number] BREAST EFREN LIMITEDPatient: ZAINAB SWIFT Exam Date: 09/23/2022 : 1995 Gender:F Ordering : [facility] Admission #: [id number] Family : Order #: [id number] CLICK HERE TO VIEW EXAM RADIOLOGY REPORT [...] cervical cancer at age 42. LOCATION: [facility] BREAST COMPOSITION: Extremely dense, which [...] by: Carolyn Walsh M.D. on 09/23/2022 at 11:31NoGrant HospitalCovid-19 PCR (CVDTBH)on 63-49-8508SYAD-CoV-2 (COVID-19) RNA JORGE LUIS+probe Ql (Unsp spec)Not detectedNormalNOT DETECTEDThe [facility] HospitalComment on above: Result Comment: When diagnostic [...] for this test is supported by the Screening Technician of Health and Human Service's declaration [...] longer be used).Performed By: #### PREG #### [facility] [address] [place] [address] Dr. Esthela Santos AND Brett [facility] 71-85-6298EORCDSPTLGHJXMemorial Hospital on above:Result Comment: Negative for Flu A protein angiten. Infection due to Flu A cannot be ruled out. FluA angiten in the sample may be below the detection limit of the test.Performed By: #### LIVER, LDH, BMP #### [facility] [address] [place] [address] Dr. Esthela SewellNEGGISSEL [facility] on above: Result Comment: Negative for Flu B protein antigen. Infection due to Flu B cannot be ruled out. FluB antigen in the sample may be below the detection limit of the test.Performed By: #### LIVER, LDH, BMP #### [facility] [address] [place] [address] Dr. Esthela Santos AGNegativeNormalNEGATIVE SEE COMMENTThe [facility] on above:Performed By: #### LIVER, LDH, BMP #### [facility] [address] [place] [address] Dr. Esthela West AGNegativeNormalNEGATIVE SEE COMMENTThe [facility] on above:Performed By: #### LIVER, LDH, BMP #### [facility] [address] [place] [address] Dr. Esthela Velásquez by IFAon 86-66-9701Nwaszpsdgkt Antibodies, IFAPositive AbnormalCommunity Memorial HospitalComaspirus ontonagon hospital on above:Result Comment: Negative <1:80 Borderline 1:80 Positive >1:80Performed By: #### PREG #### [facility] [address] [place] [address] Dr. Esthela Gongora [facility] GeneralComment on above: Performed By: #### PREG #### [facility] [address] [place] [address] Dr. Esthela Coyle PatternSumma Health Barberton CampusComment on above: Performed By: #### PREG #### [facility] [address] [place] [address] Dr. Esthela StevensHomchevyous Pattern1:160Critically highCommunity Memorial Hospital Comment on above:Result Comment: ICAP nomenclature: AC-1Performed By: #### PREG #### [facility] [address] [place] [address] Dr. Esthela Atwood PatternNoGrant HospitalComment on above: Performed By: #### PREG #### [facility] [address] [place] [address] Dr. Esthela StevensNotleonel:CommentBrecksville VA / Crille [facility] on above:Result Comment: For more information [...] titers Nucleosomes, Histones Drug-induced SLE Speckled Sm, RADIO ANNOUNCER, SCL-70, SLE,MCTD,PSS (diffuse form), SS-A/SS-B Sjogrens Nucleolar SCL-70, PM- 1/SCL High titers Scleroderma, PM/DM Centromere Centromere PSS (limited form)w/Crest syndrome variable Nuclear Dot Sp100,c43-gkyiyq Primary Biliary Cirrhosis Nuclear GP210, Primary Biliary Cirrhosis Membrane italia A,B,C Performed By: #### PREG #### [facility] [address] [place] [address] [address] [address] Esthel[address] Padilla Dot PatternNormMercy Health Clermont HospitalComment on above: Performed By: #### PREG #### [facility] [address] [address] [address] Esthela iRberauclear Membrane [facility] GeneralComment on above:Performed By: #### PREG #### [facility] [address] [address] [address] Esthela StevensNucleolar [facility] GeneralComaspirus ontonagon hospital on above: Performed By: #### PREG #### [facility] [address] [address] [address] Esthela Elizalde [facility] GeneralComaspirus ontonagon hospital on above:Performed By: #### PREG #### [facility] [address] [address] [address] Esthela Coateskled [facility] GeneralComaspirus ontonagon hospital on above: Performed By: #### PREG #### [facility] [address] [place] [address] Dr. Esthela StevensSpindle Apparatus [facility] GeneralComaspirus ontonagon hospital on above:Performed By: #### PREG #### [facility] [address] [place] [address] Dr. Esthela StevensANTISTREPTOLYSIN O AB (ASO)on 50-99-8194Iaruedztqjowajor O Ab58.8 IU/mLNormal0.0-200.0The [facility] on above:Performed By: #### LIVER, LDH, BMP #### [facility] [address] [place] [address] Dr. Esthela StevensINSULINon 35-55-0852Pgqflhy69.2 uIU/mLNormal2.6-24.9[facility] on above:Performed By: #### INSULIN #### [facility] [address] [place] [address] Dr. Esthela StevensRHEUMATOID FACTORon 61-26-8967NM Latex Turbid.<10.0Normal<14.0[facility] on above:Performed By: #### LIVER, LDH, BMP #### [facility] [address] [place] [address] Dr. Esthela Saunders AUTO DIFFon 64-27-1143AFRW #0.0 103/ulNormal0.0-0.1The [facility] HospitalComment on above:Performed By: #### PREG #### [facility] [address] [place] [address] Dr. Esthela StevensBasophils/100 WBC (Bld)0.6 %Normal0.2-2.0[facility] Comment on above:Performed By: #### PREG #### [facility] [address] [place] [address] Dr. Esthela Alexis #0.1 103/ulNormal0.0-0.7The [facility] HospitalComment on above: Performed By: #### PREG #### [facility] [address] [place] [address] Dr. Esthela Ricciosinophils/100 WBC (Bld)1.5 %Normal0.9-7.0[facility] Comment on above:Performed By: #### PREG #### [facility] [address] [place] [address] Dr. Esthela Riccirythrocyte distribution width (RBC) [Ratio]12.7 %Mpjdle99.0-15.0 The [facility] HospitalComment on above:Performed By: #### PREG #### [facility] [address] [place] [address] Dr. Esthela StevensHematocrit (Bld) [Volume fraction]38.4 %Gaojlo24.0-48.0The [facility] HospitalComment on above:Performed By: #### PREG #### [facility] [address] [place] [address] Dr. Esthela StevensHemoglobin (Bld) [Mass/Vol]12.7 g/gNRyrhuv28.0-16.0The [facility] HospitalComment on above:Performed By: #### PREG #### [facility] [address] [place] [address] Dr. Esthela Mcclellan #0.02 10e3/ulNormal0.00-0.03The [facility] HospitalComment on above:Performed By: #### PREG #### [facility] [address] [address] [address] Esthela Mcclellan %0.3 %Normal0.0-0.5The [facility] on above: Performed By: #### PREG #### [facility] [address] [address] [address] Esthela Rich #2.0 103/ulNormal1.2-3.8The [facility] HospitalComaspirus ontonagon hospital on above:Performed By: #### PREG #### [facility] [address] [place] [address] Dr. Esthela Bonillahocytes/100 WBC (Bld)31.2 %Khlfmk79.5-60.0[facility] on above:Performed By: #### PREG #### [facility] [address] [place] [address] Dr. Esthela LiangUAL DIFF REQNONormalThe [facility] HospitalComment on above: Performed By: #### PREG #### [facility] [address] [place] [address] Dr. Esthela Vanegas (RBC) [Entitic mass]27.1 oxXyvmxj81.7-34.0[facility] on above:Performed By: #### PREG #### [facility] [address] [place] [address] Dr. Esthela Vanegas (RBC) [Mass/Vol]33.1 g/tTHqjxbv78.9-35.2[facility] on above:Performed By: #### PREG #### [facility] [address] [place] [address] Dr. Esthela Vanegas (RBC) [Entitic vol]82.1 aKLlckgh11.0-99.0[facility] on above:Performed By: #### PREG #### [facility] [address] [place] [address] Dr. Esthela Jackson #0.4 103/ulNormal0.3-0.8The [facility] HospitalComment on above:Performed By: #### PREG #### [facility] [address] [place] [address] Dr. Esthela Chanocytes/100 WBC (Bld)6.4 %Normal1.7-12.0The [facility] Comment on above:Performed By: #### PREG #### [facility] [address] [place] [address] Dr. Esthela AndersonUT #3.9 103/ulNormal1.4-6.5The [facility] HospitalComment on above:Performed By: #### PREG #### [facility] [address] [place] [address] Dr. Esthela Andersonutrophils/100 WBC (Bld)60.0 %Toknpa81.0-75.0The [facility] HospitalComment on above:Performed By: #### PREG #### [facility] [address] [place] [address] Dr. Esthela StevensPlatelet mean volume (Bld) [Entitic vol]9.2 fLCritically low 9.5-13.5The [facility] HospitalComment on above:Performed By: #### PREG #### [facility] [address] [place] [address] Dr. Esthela StevensPLT390 103/pcZkdfdx126-029Byr [facility] HospitalComment on above: Performed By: #### PREG #### [facility] [address] [place] [address] Dr. Esthela StevensRBC4.68 106/ulNormal4.20-5.40The [facility] HospitalComment on above:Performed By: #### PREG #### [facility] [address] [place] [address] Dr. Esthela StevensWBC6.5 103/ulNormal4.0-11.0The [facility] HospitalComment on above: Performed By: #### PREG #### [facility] [address] [place] [address] Dr. Esthela Jiang 28-02-1614LPW [Mass/Vol]mg/LNormal<=1.0The [facility] Springfield HospitalComment on above:Performed By: #### LIVER, LDH, BMP #### [facility] [address] [address] [address] Esthela Su THYROXINE INDEX T7on 94-59-8864FMS6.59Ayetvr2.30-4.50The [facility] HospitalComment on above:Performed By: #### LIVER, LDH, BMP #### [facility] [address] [address] [address] Esthela StevensT3U33.0 %Dkbnzx20.0-39.0The [facility] HospitalComment on above: Performed By: #### LIVER, LDH, BMP #### [facility] [address] [address] [address] Esthela StevensT4 [Mass/Vol]8.90 ug/dLNormal4.80-13.90[facility] Comment on above:Performed By: #### LIVER, LDH, BMP #### [facility] [address] [place] [address] Dr. Esthela StevensGLYCOHEMOGLOBIN A1Con 72-45-8563MVN RECOMMENDATIONSEE BELOWNormal The [facility] HospitalComment on above:Result Comment: ADA RECOMMENDED LIMIT 4.0 - 6.0 ADA THERAPEUTIC TARGET < 7.0 ACTION SUGGESTED > 7.0Performed By: #### LIVER, LDH, BMP #### [facility] [address] [place] [address] Dr. Esthela StevensGlucose [Mass/Vol]111 mg/dLNormalThe [facility] HospitalComaspirus ontonagon hospital on above:Performed By: #### LIVER, LDH, BMP #### [facility] [address] [place] [address] Dr. Esthela StevensHbA1c (Bld) [Mass fraction]5.5 %Normal4.5-6.2The [facility] HospitalComment on above:Performed By: #### LIVER, LDH, BMP #### [facility] [address] [place] [address] Dr. Esthela Zacarias 24-27-8805Eqbx [Mass/Vol]34.0 ug/dLCritically low 50.0-170.0The [facility] HospitalComment on above:Performed By: #### LIVER, LDH, BMP #### [facility] [address] [address] [address] Esthela StevensLIPID PROFILEon 69-27-7032WBKO-HDL RATIO NORMSLakeHealth Beachwood Medical CenterComaspirus ontonagon hospital on above:Result Comment: 3.3 - 4.4 LOW RISK 4.4 - 7.1 AVERAGE RISK 7.1 - 11.0 MODERATE RISK >11.0 HIGH RISKPerformed By: #### LIVER, LDH, BMP #### [facility] [address] [address] [address] Esthela StevensCholesterol [Mass/Vol]168 mg/dLNormal<=200[facility] Comment on above:Performed By: #### LIVER, LDH, BMP #### [facility] [address] [address] [address] Esthela StevensCholesterol in HDL [Mass/Vol]51 mg/cUHdlutv77-72PzjCommunity Memorial HospitalComment on above:Performed By: #### LIVER, LDH, BMP #### [facility] [address] [address] [address] Esthela StevensCholesterol in LDL [Mass/Vol]91.8 mg/dLSumma Health Barberton CampusComaspirus ontonagon hospital on above:Performed By: #### LIVER, LDH, BMP #### [facility] [address] [address] [address] Esthela Deviesterdemarcus.total/Cholesterol in HDL [Mass ratio]3.3 {ratio} NormalCommunity Memorial HospitalComment on above:Performed By: #### LIVER, LDH, BMP #### [facility] [address] [place] [address] Dr. Esthela Jimenez NORMAL> or = 60 mg/dl - LOW CARDIOVASCULAR RISK <40 mg/dl - HIGH CARDIOVASCULAR RISKBrecksville VA / Crille Hospital on above:Performed By: #### LIVER, LDH, BMP #### [facility] [address] [place] [address] Dr. Esthela StevensLDL CALC NORMALSEE [facility] Medical CenterComment on above:Result Comment: <100 mg/dl OPTIMAL 100 - 129 mg/dl NEAR OR ABOVE OPTIMAL 130 - 159 mg/dl BORDERLINE HIGH 160 - 189 mg/dl HIGH >190 mg/dl VERY HIGH Performed By: #### LIVER, LDH, BMP #### [facility] [address] [address] [address] Esthela StevensTriglyceride [Mass/Vol]126 mg/dLNormal<=150The [facility] Comment on above:Performed By: #### LIVER, LDH, BMP #### [facility] [address] [address] [address] Esthela StevensVLDL CALC25.2 mg/dLNormalThe [facility] HospitalComment on above: Performed By: #### LIVER, LDH, BMP #### [facility] [address] [place] [address] Dr. Esthela Walker 14(COMP METB)on 68-69-7513Caokket [Mass/Vol]4.2 g/dLNormal 3.4-5.0The [facility] HospitalComment on above:Performed By: #### LIVER, LDH, BMP #### [facility] [address] [place] [address] Dr. Esthela StevensAlbumin/Globulin [Mass ratio]1.1 {ratio}NormalThe [facility] HospitalComment on above:Performed By: #### LIVER, LDH, BMP #### [facility] [address] [place] [address] Dr. Esthela Pinedo [Catalytic activity/Vol]74 U/YRheixq61-120Qpm [facility] HospitalComment on above:Performed By: #### LIVER, LDH, BMP #### [facility] [address] [address] [address] Esthela Saenz [Catalytic activity/Vol]57 U/WJunurz17-23Jtv [facility] HospitalComment on above:Performed By: #### LIVER, LDH, BMP #### [facility] [address] [place] [address] Dr. Esthela Smith gap [Moles/Vol]15.0 mmol/LNormalThe [facility] Comment on above:Performed By: #### LIVER, LDH, BMP #### [facility] [address] [place] [address] Dr. Esthela StevensAST [Catalytic activity/Vol]25 U/RKuxtsf55-42Ohh [facility] HospitalComment on above:Performed By: #### LIVER, LDH, BMP #### [facility] [address] [place] [address] Dr. Esthela StevensBilirubin [Mass/Vol]0.4 mg/dLNormal0.2-1.0The [facility] Comment on above:Performed By: #### LIVER, LDH, BMP #### [facility] [address] [place] [address] Dr. Esthela StevensCalcium [Mass/Vol]9.4 mg/dLNormal8.5-10.1[facility] Comment on above:Performed By: #### LIVER, LDH, BMP #### [facility] [address] [place] [address] Dr. Esthela StevensChloride [Moles/Vol]102 mmol/SSlpwhj00-115Wrb [facility] Comment on above:Performed By: #### LIVER, LDH, BMP #### [facility] [address] [place] [address] Dr. Esthela StevensCO2 [Moles/Vol]27.0 mmol/INboijg36.0-32.0The [facility] Comment on above:Performed By: #### LIVER, LDH, BMP #### [facility] [address] [place] [address] Dr. Esthela StevensCreatinine [Mass/Vol]0.61 mg/dLNormal0.55-1.02The [facility] HospitalComment on above:Performed By: #### LIVER, LDH, BMP #### [facility] [address] [place] [address] Dr. Esthela RicciGFR-AF CYPRIOT>60Normal>=60The [facility] HospitalComment on above:Performed By: #### LIVER, LDH, BMP #### [facility] [address] [place] [address] Dr. Yilan ChangEGFR-NON AF CYPRIOT>60Normal>=60The [facility] HospitalComment on above:Performed By: #### LIVER, LDH, BMP #### [facility] [address] [place] [address] Dr. Esthela StevensGlobulin (S) [Mass/Vol]3.7 g/dLNormMercy Health Clermont HospitalComment on above:Performed By: #### LIVER, LDH, BMP #### [facility] [address] [place] [address] Dr. Esthela StevensGlucose [Mass/Vol]88 mg/cLItudnw94-492Mds [facility] Comment on above:Performed By: #### LIVER, LDH, BMP #### [facility] [address] [place] [address] Dr. Esthela StevensPotassium [Moles/Vol]4.0 mmol/LNormal3.5-5.1The [facility] Comment on above:Performed By: #### LIVER, LDH, BMP #### [facility] [address] [place] [address] Dr. Esthela StevensProtein [Mass/Vol]7.9 g/dLNormal6.4-8.2[facility] Comment on above:Performed By: #### LIVER, LDH, BMP #### [facility] [address] [place] [address] Dr. Esthela StevensSodium [Moles/Vol]140 mmol/FBbfjtc104-823LluCommunity Memorial Hospital Comment on above:Performed By: #### LIVER, LDH, BMP #### [facility] [address] [place] [address] Dr. Esthela StevensUrea nitrogen [Mass/Vol]4.0 mg/dLCritically low7.0-18.0The [facility] HospitalComment on above:Performed By: #### LIVER, LDH, BMP #### [facility] [address] [place] [address] Dr. Esthela Jaquez nitrogen/Creatinine [Mass ratio]6.6 mg/mgNoGrant HospitalComment on above:Performed By: #### LIVER, LDH, BMP #### [facility] [address] [place] [address] Dr. Esthela StevensTSHofreddie 73-92-9482BVZ3.348 uIU/mLNormal0.358-3.740[facility] on above:Performed By: #### LIVER, LDH, BMP #### [facility] [address] [place] [address] Dr. Esthela StevensURIC ACID SERUMon 57-38-4177Hctbb [Mass/Vol]4.4 mg/dLNormal 2.6-6.0The [facility] on above:Performed By: #### LIVER, LDH, BMP #### [facility] [address] [place] [address] Dr. Esthela StevensVITAMIN D 25 OHon 48-64-5096AQE D 25-OH18.0 ng/mLNormalThe [facility] on above:Performed By: #### LIVER, LDH, BMP #### [facility] [address] [place] [address] [facility] CenterComaspirus ontonagon hospital on above: Result Comment: <20 ng/mL Vit D deficient 20 - <30 ng/mL Vit D insufficient 30 - 100 ng/mL Vit D sufficient >100 ng/mL Potential ToxicityPerformed By: #### LIVER, LDH, BMP #### [facility] [address] [place] [address] Dr. Esthela Diaz PROFILEon 63-21-0558Hrzdbbr [Mass/Vol]3.9 g/dLNormal3.4-5.0 The [facility] on above:Performed By: #### LIVER, LDH, BMP #### [facility] [address] [place] [address] Dr. Esthela StevensAlbumin/Globulin [Mass ratio]1.0 {ratio}NormalThe [facility] on above:Performed By: #### LIVER, LDH, BMP #### [facility] [address] [place] [address] Dr. Esthela StevensALP [Catalytic activity/Vol]70 U/IBxxktw05-309Ivm [facility] HospitalComment on above:Performed By: #### LIVER, LDH, BMP #### [facility] [address] [place] [address] Dr. Esthela Saenz [Catalytic activity/Vol]44 U/HFmuozx57-03Bjw [facility] HospitalComment on above:Performed By: #### LIVER, LDH, BMP #### [facility] [address] [place] [address] Dr. Esthela Perez [Catalytic activity/Vol]22 U/BTlclpe33-83Qeq [facility] HospitalComment on above:Performed By: #### LIVER, LDH, BMP #### [facility] [address] [place] [address] Dr. Esthela Andrews, CONJUGATED0.1 mg/dLNormal0.0-0.2[facility] Comment on above:Performed By: #### LIVER, LDH, BMP #### [facility] [address] [place] [address] Dr. Esthela De La Cruzirubin [Mass/Vol]0.3 mg/dLNormal0.2-1.0[facility] Comment on above:Performed By: #### LIVER, LDH, BMP #### [facility] [address] [place] [address] Dr. Esthela StevensGlobulin (S) [Mass/Vol]3.9 g/dLNormalThe [facility] HospitalComaspirus ontonagon hospital on above:Performed By: #### LIVER, LDH, BMP #### [facility] [address] [place] [address] Dr. Esthela StevensProtein [Mass/Vol]7.8 g/dLNormal6.4-8.2The [facility] Comment on above:Performed By: #### LIVER, LDH, BMP #### [facility] [address] [place] [address] Dr. Esthela Pérez/GFRon 45-05-3141Yzdfnhjvsf [Mass/Vol]0.85 mg/dL0.50 - 1.20 mg/dLU [facility] Health CenterGFR/1.73 sq M.predicted CKD-EPI (S/P/Bld) [Vol rate/Area]- PINFOSU [facility]ner Medical CenterComment on above:Reported eGFR is based on the CKD-EPI 2020 equation using creatinine, age, and sex.Interpretation and review of laboratory resultsNoMartins Ferry HospitalTest performed at address of the patient encounter.[facility] HospitalOSU [facility] Health CenterPT Skull base to mid-thighon 38-78-6029HNXKLAKIFK: No definite evidence of somatostatin receptor avid [...] the patient was positioned on the Siemens Strohl Medicalgraph mCT TOF< PET/CT-64, Tera imaging unit. 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 [facility] HospitalRadiology Study observation (narrative)[facility] HospitalPT Skull base to mid-thighOrdered By: Hawa Pichardo on [id number] Clinic Marymount Hospital Work Phone: [facility] AUTO DIFFon [id number] #0.1 103/ulNormal 0.0-0.1[facility] HospitalComment on above:Performed By: #### LIVER, LDH, BMP #### [facility] [address] [place] [address] Dr. Esthela StevensBasophils/100 WBC (Bld)1.0 %Normal0.2-2.0[facility] Comment on above:Performed By: #### LIVER, LDH, BMP #### [facility] [address] [place] [address] Dr. Esthela Alexis #0.1 103/ulNormal0.0-0.7The [facility] HospitalComment on above: Performed By: #### LIVER, LDH, BMP #### [facility] [address] [place] [address] Dr. Esthela Ricciosinophils/100 WBC (Bld)1.6 %Normal0.9-7.0The [facility] Comment on above:Performed By: #### LIVER, LDH, BMP #### [facility] [address] [place] [address] Dr. Esthela Riccirythrocyte distribution width (RBC) [Ratio]12.5 %Styyzz20.0-15.0 The [facility] HospitalComment on above:Performed By: #### LIVER, LDH, BMP #### [facility] [address] [place] [address] Dr. Esthela StevensHematocrit (Bld) [Volume fraction]40.1 %Hbwpxf90.0-48.0The [facility] HospitalComment on above:Performed By: #### LIVER, LDH, BMP #### [facility] [address] [place] [address] Dr. Esthela StevensHemoglobin (Bld) [Mass/Vol]12.3 g/mPApqsmn61.0-16.0The [facility] HospitalComment on above:Performed By: #### LIVER, LDH, BMP #### [facility] [address] [place] [address] Dr. Esthela Mcclellan #0.01 10e3/ulNormal0.00-0.03The [facility] HospitalComaspirus ontonagon hospital on above:Performed By: #### LIVER, LDH, BMP #### [facility] [address] [place] [address] Dr. Esthela Mcclellan %0.2 %Normal0.0-0.5The [facility] HospitalComaspirus ontonagon hospital on above: Performed By: #### LIVER, LDH, BMP #### [facility] [address] [place] [address] Dr. Esthela Rich #1.8 103/ulNormal1.2-3.8The [facility] HospitalComment on above:Performed By: #### LIVER, LDH, BMP #### [facility] [address] [place] [address] Dr. Esthela Bonillahocytes/100 WBC (Bld)28.0 %Imzawe06.5-60.0The [facility] Hospitalment on above:Performed By: #### LIVER, LDH, BMP #### [facility] [address] [place] [address] Dr. Esthela Sutton DIFF REQNONormalThe [facility] HospitalComment on above: Performed By: #### LIVER, LDH, BMP #### [facility] [address] [place] [address] Dr. Esthela Vanegas (RBC) [Entitic mass]26.8 tkEaidcc27.7-34.0The [facility] HospitalComment on above:Performed By: #### LIVER, LDH, BMP #### [facility] [address] [place] [address] Dr. Esthela Vanegas (RBC) [Mass/Vol]30.7 g/sARcujnf92.9-35.2The [facility] HospitalComment on above:Performed By: #### LIVER, LDH, BMP #### [facility] [address] [place] [address] Dr. Esthela Vanegas (RBC) [Entitic vol]87.4 yJXnnmge65.0-99.0The [facility] HospitalComment on above:Performed By: #### LIVER, LDH, BMP #### [facility] [address] [place] [address] Dr. Esthela Jackson #0.6 103/ulNormal0.3-0.8The [facility] HospitalComment on above:Performed By: #### LIVER, LDH, BMP #### [facility] [address] [place] [address] Dr. Esthela Chanocytes/100 WBC (Bld)9.4 %Normal1.7-12.0The [facility] Comment on above:Performed By: #### LIVER, LDH, BMP #### [facility] [address] [place] [address] Dr. Esthela Bonner #3.8 103/ulNormal1.4-6.5The [facility] HospitalComment on above:Performed By: #### LIVER, LDH, BMP #### [facility] [address] [place] [address] Dr. Esthela Andersonutrophils/100 WBC (Bld)59.8 %Avtqlc02.0-75.0The [facility] HospitalComment on above:Performed By: #### LIVER, LDH, BMP #### [facility] [address] [place] [address] Dr. Esthela Pressleylet mean volume (Bld) [Entitic vol]9.6 fLNormal9.5-13.5The [facility] HospitalComment on above:Performed By: #### LIVER, LDH, BMP #### [facility] [address] [place] [address] Dr. Esthela StevensPLT341 103/dtXkovqp572-352Lvz [facility] HospitalComment on above: Performed By: #### LIVER, LDH, BMP #### [facility] [address] [place] [address] Dr. Esthela StevensRBC4.59 106/ulNormal4.20-5.40The [facility] on above:Performed By: #### LIVER, LDH, BMP #### [facility] [address] [place] [address] Dr. Esthela StevensWBC6.3 103/ulNormal4.0-11.0The [facility] HospitalComment on above: Performed By: #### LIVER, LDH, BMP #### [facility] [address] [place] [address] Dr. Esthela StevensCT ABD/PELV W CONon 61-68-3263PM ABD/PELV W CONINDICATION: ABDOMINAL DISTENSION (GASEOUS) EXAMINATION: [...] Electronically authenticated by: TIMMY SHAY Date: 2022-08-12 17:04[facility] CampusCULTURE URINEon 34-62-2175SKVPTMZ URINECulture Observations: MODERATE GROWTH OF MIXED GENITAL SUNITA. NO POTENTIAL PATHOGENS SEEN.NormalThe [facility] Springfield HospitalComment on above:Performed By: #### LIVER, LDH, BMP #### [facility] [address] [place] [address] Dr. Proctor ChangEWillam URINE PROFILEon 25-09-2385Wqofhjsmx Ql (U)NegativeNormal NEGATIVEThe [facility] HospitalComment on above:Performed By: #### PREG #### [facility] [address] [place] [address] Dr. Proctor ChangClarity (U)CLEARNormalCLEARThe [facility] HospitalComment on above: Performed By: #### PREG #### [facility] [address] [place] [address] Dr. Esthela Alvarengalor (U)LT. YELLOWNormalYELLOWCommunity Memorial HospitalComment on above:Performed By: #### PREG #### [facility] [address] [place] [address] Dr. Esthela Sweeney micrscopic examination will be performed if indicated. NormalThe [facility] HospitalComment on above:Performed By: #### PREG #### [facility] [address] [address] [address] Esthela StevensGlucose Ql (U)NegativeNormalNEGATIVECommunity Memorial HospitalComment on above:Performed By: #### PREG #### [facility] [address] [address] [address] Esthela StevensHemoglobin Ql (U)NegativeNormalNEGATIVEPremier Health [facility] on above:Performed By: #### PREG #### [facility] [address] [place] [address] Dr. Esthela StevensKetones Ql (U)NegativeNormalNEGATIVECommunity Memorial HospitalComment on above:Performed By: #### PREG #### [facility] [address] [place] [address] Dr. Esthela StevensLEUKOCYTESSMALLAbnormalNEGATIVECommunity Memorial HospitalComaspirus ontonagon hospital on above:Performed By: #### PREG #### [facility] [address] [place] [address] Dr. Esthela StevensNitrite Ql (U)NegativeNormalNEGATIVECommunity Memorial HospitalComment on above:Performed By: #### PREG #### [facility] [address] [place] [address] Dr. Esthela StevenspH (U)7.0 [pH]Normal5-9Community Memorial HospitalComment on above: Performed By: #### PREG #### [facility] [address] [address] [address] Esthela StevensSPEC GRAVITY1.687Gralqv5.005-<=1.025The [facility] HospitalComment on above:Performed By: #### PREG #### [facility] [address] [place] [address] Dr. Esthela Anna PROTEINNegativeNormalNEGATIVE/ TRACEThe [facility] Comment on above:Performed By: #### PREG #### [facility] [address] [place] [address] Dr. Esthela Cassidy MICRO INDINDICATEDNormalThe [facility] HospitalComment on above: Performed By: #### PREG #### [facility] [address] [place] [address] Dr. Esthela StevensUrobilinogen Qn (U)0.2 {Emeka'U}/dLNormal0.2 - 1.0The [facility] HospitalComment on above:Performed By: #### PREG #### [facility] [address] [place] [address] Dr. Esthela StevensLIPASEon 89-69-1296Ypbbjx [Catalytic activity/Vol]75.0 U/LNormal 73.0-393.0The [facility] HospitalComment on above:Performed By: #### PREG #### [facility] [address] [place] [address] Dr. Esthela StevensPREGNANCY URon 39-38-2283DUNATVBOP, QUALNegativeNormalNEGATIVEThe [facility] HospitalComment on above:Performed By: #### PREG #### [facility] [address] [place] [address] Dr. Esthela StevensPROF 14(COMP METB)on 89-00-1254Tnswwsp [Mass/Vol]4.0 g/dLNormal 3.4-5.0The [facility] HospitalComment on above:Performed By: #### PREG #### [facility] [address] [place] [address] Dr. Esthela StevensAlbumin/Globulin [Mass ratio]1.1 {ratio}NormalThe [facility] HospitalComment on above:Performed By: #### PREG #### [facility] [address] [place] [address] Dr. Esthela JeanP [Catalytic activity/Vol]73 U/TTukikr11-806Byl [facility] HospitalComment on above:Performed By: #### PREG #### [facility] [address] [address] [address] Esthela JeanT [Catalytic activity/Vol]82 U/LCritically rdmz01-83Jqo [facility] HospitalComment on above:Performed By: #### PREG #### [facility] [address] [address] [address] Esthela StevensAnion gap [Moles/Vol]12.0 mmol/LNormalThe [facility] Comment on above:Performed By: #### PREG #### [facility] [address] [address] [address] Esthela StevensAST [Catalytic activity/Vol]33 U/UAzguzv56-28Qqc [facility] HospitalComment on above:Performed By: #### PREG #### [facility] [address] [address] [address] Esthela StevensBilirubin [Mass/Vol]0.2 mg/dLNormal0.2-1.0The [facility] Comment on above:Performed By: #### PREG #### [facility] [address] [place] [address] Dr. Esthela StevensCalcium [Mass/Vol]9.4 mg/dLNormal8.5-10.1[facility] Comment on above:Performed By: #### PREG #### [facility] [address] [address] [address] Esthela StevensChloride [Moles/Vol]102 mmol/DClxgod91-450Omk [facility] Comment on above:Performed By: #### PREG #### [facility] [address] [address] [address] Esthela StevensCO2 [Moles/Vol]27.8 mmol/LJgfrgy15.0-32.0[facility] Comment on above:Performed By: #### PREG #### [facility] [address] [address] [address] Esthela StevensCreatinine [Mass/Vol]0.69 mg/dLNormal0.55-1.02The [facility] HospitalComment on above:Performed By: #### PREG #### [facility] [address] [address] [address] Esthela RicciGFR-AF CYPRIOT>60Normal>=60The [facility] HospitalComment on above:Performed By: #### PREG #### [facility] [address] [address] [address] Esthela RicciGFR-NON AF CYPRIOT>60Normal>=60The [facility] HospitalComment on above:Performed By: #### PREG #### [facility] [address] [address] [address] Esthela StevensGlobulin (S) [Mass/Vol]3.5 g/dLNormalThe [facility] HospitalComment on above:Performed By: #### PREG #### [facility] [address] [place] [address] Dr. Esthela StevensGlucose [Mass/Vol]109 mg/dLCritically hugq88-496Kvl [facility] HospitalComment on above:Performed By: #### PREG #### [facility] [address] [place] [address] Dr. Esthela StevensPotassium [Moles/Vol]3.8 mmol/LNormal3.5-5.1[facility] Comment on above:Performed By: #### PREG #### [facility] [address] [place] [address] Dr. Esthela StevensProtein [Mass/Vol]7.5 g/dLNormal6.4-8.2[facility] Comment on above:Performed By: #### PREG #### [facility] [address] [place] [address] Dr. Esthela StevensSodium [Moles/Vol]138 mmol/HEvzmry121-220Boq [facility] Comment on above:Performed By: #### PREG #### [facility] [address] [place] [address] Dr. Esthela StevensUrea nitrogen [Mass/Vol]6.0 mg/dLCritically low7.0-18.0The [facility] HospitalComment on above:Performed By: #### PREG #### [facility] [address] [place] [address] Dr. Esthela StevensUrea nitrogen/Creatinine [Mass ratio]8.7 mg/mgNoGrant HospitalComment on above:Performed By: #### PREG #### [facility] [address] [address] [address] Esthela Bhatia MICROSCOPIC ONLYon [id number]R SEEN [facility] on above:Performed By: #### PREG #### [facility] [address] [address] [address] Esthela Wolfe identified Cx Nom (U)INDICATEDSumma Health Barberton CampusComment on above:Performed By: #### PREG #### [facility] [address] [place] [address] Dr. Esthela Beard SEENNormalNONE SEENKnox Community Hospital on above:Performed By: #### PREG #### [facility] [address] [place] [address] Dr. Esthela Patelystals LM Nom (Urine sed)NONE SEENNormalNONE SEENKnox Community Hospital on above:Performed By: #### PREG #### [facility] [address] [place] [address] Dr. Esthela Riccipithelial cells LM Ql (Urine sed)MODERATEAbnormalNONE SEEN /RARE [facility] HospitalComaspirus ontonagon hospital on above:Performed By: #### PREG #### [facility] [address] [place] [address] Dr. Esthela AlmonteNONE SEENNormalNONE SEENKnox Community Hospital on above:Performed By: #### PREG #### [facility] [address] [address] [address] Esthela Stinson SEENAbnormal0-2[facility] on above: Performed By: #### PREG #### [facility] [address] [address] [address] Esthela StevensWBC2-5AbnormalNONE SEENKnox Community Hospital on above: Performed By: #### PREG #### [facility] [address] [place] [address] Dr. Esthela Hanson ACOG PANEL 2: 21 to 29on 08-11-2022..NormalCommunity Memorial HospitalComaspirus ontonagon hospital on above:Performed By: #### [id number] #### [facility] [address] [place] [address] Dr. Esthela Napier Gdln ACOG Koiykwk70-24YdrcveNxjGrant HospitalComment on above:Performed By: #### [id number] #### [facility] [address] [place] [address] Dr. Esthela StevensDIAGNOSIS:CommentAbAvita Health System [facility] on above: Result Comment: EPITHELIAL CELL ABNORMALITY. ATYPICAL SQUAMOUS CELLS OF UNDETERMINED SIGNIFICANCE (ASC-US).Performed By: #### [id number] #### [facility] [address] [place] [address] Dr. Proctor ChangElectronically signed by:CommentSumma Health Barberton Campus Comment on above:Result Comment: Ginger Moncada MD, PathologistPerformed By: #### [id number] #### [facility] [address] [place] [address] Dr. Esthela StevensHPV AptimaNegativeNormalNegativeKnox Community Hospital on above:Result Comment: This nucleic acid amplification test detects fourteen high-risk HPV types (16,18,31,33,35,39,45,51,52,56,58,59,66,68) without differentiation.Performed By: #### [id number] #### [facility] [address] [place] [address] Dr. Esthela StevensMethodology:CommentBrecksville VA / Crille Hospital on above: Result Comment: This liquid based ThinPrep(R) pap test was screened with the use of an image guided system.Performed By: #### [id number] #### [facility] [address] [place] [address] Dr. Esthela StevensNote:CommentBrecksville VA / Crille Hospital on above:Result Comment: The Pap smear is a screening test designed to aid in the detection of premalignant and malignant conditions of the uterine cervix. It is not a diagnostic procedure and should not be used as the sole means of detecting cervical cancer. Both false-positive and false-negative reports do occur. .Performed By: #### [id number] #### [facility] [address] [place] [address] Dr. Esthela StevensPathologist Provided NOU99MnoagaiYdaylcWjiSumma Health Barberton Campus Comment on above:Result Comment: [id number] By: #### [id number] #### [facility] [address] [place] [address] Dr. Esthela StevensPerformed by:CommentNoAultman Orrville Hospital on above: Result Comment: Yoselyn Ardon, System Archive Analyst (ASCP)Performed By: #### [id number] #### [facility] [address] [place] [address] Dr. Esthela StevensReflex Criteria:CommentBrecksville VA / Crille Hospital on above:Result Comment: See below for HPV testing results. .Performed By: #### [id number] #### [facility] [address] [place] [address] Dr. Esthela StevensSpecimen adequacy:[facility] on above:Result Comment: Satisfactory for evaluation. Endocervical and/or squamous metaplastic cells (endocervical component) are present.Performed By: #### [id number] #### [facility] [address] [place] [address] Dr. Esthela StevensGI PANEL (PCR)on [id number] F 40/41Not detectedNormal NOT DETECTEDThe [facility] HospitalComment on above:Performed By: #### PREG #### [facility] [address] [place] [address] Dr. Esthela StevensAstrovirusNot detectedNormalNOT DETECTEDThe [facility] Comment on above:Performed By: #### PREG #### [facility] [address] [place] [address] Dr. Esthela Downing. Diff toxin A/BDetectedCritically abnormalNOT DETECTEDThe [facility] HospitalComment on above:Performed By: #### PREG #### [facility] [address] [address] [address] Esthela SouzalobacterNot detectedNormalNOT DETECTEDThe [facility] Comment on above:Performed By: #### PREG #### [facility] [address] [address] [address] Esthela PatelyptosporidiumNot detectedNormalNOT DETECTEDThe [facility] HospitalComment on above:Performed By: #### PREG #### [facility] [address] [address] [address] Esthela Wilsonos. CayetanensisNot detectedNormalNOT DETECTEDThe [facility] HospitalComment on above:Performed By: #### PREG #### [facility] [address] [address] [address] Esthela Castellanos Coli J042Uab ApplicableNormalNot ApplicableThe [facility] HospitalComment on above:Performed By: #### PREG #### [facility] [address] [address] [address] Esthela Ricci. histolyticaNot detectedNormalNOT DETECTEDThe [facility] Comment on above:Performed By: #### PREG #### [facility] [address] [address] [address] Esthela RicciAECNpetros detectedNormalNOT DETECTEDThe [facility] HospitalComaspirus ontonagon hospital on above:Performed By: #### PREG #### [facility] [address] [address] [address] Esthela RicciIECNot detectedNormalNOT DETECTEDThe [facility] HospitalComaspirus ontonagon hospital on above:Performed By: #### PREG #### [facility] [address] [address] [address] Esthela RicciPECNot detectedNormalNOT DETECTEDThe [facility] HospitalComaspirus ontonagon hospital on above:Performed By: #### PREG #### [facility] [address] [address] [address] Esthela RicciTECNpetros detectedNormalNOT DETECTEDThe [facility] HospitalComment on above:Performed By: #### PREG #### [facility] [address] [address] [address] Esthela Ervin LambliaNot detectedNormalNOT DETECTEDCommunity [facility] Comment on above:Performed By: #### PREG #### [facility] [address] [address] [address] Esthela Esparza CONTROLSPASSMercy Health Allen HospitalComment on above:Performed By: #### PREG #### [facility] [address] [address] [address] Esthela WEBB HEADERGI PANEL [facility] Comment on above:Performed By: #### PREG #### [facility] [address] [address] [address] Esthela Hyman ECOLIGI PANEL DIARRHEAGENIC E.COLI / SHIGELLASumma Health Barberton CampusComment on above:Performed By: #### PREG #### [facility] [address] [place] [address] Dr. Esthela Hyman INFOSEE [facility] Medical CenterComment on above: Result Comment: EAEC- Enteroaggregative E. Coli EPEC- Enteropathogenic E. Coli ETEC- Enterotoxigenic E. Coli lt/st STEC- Shigella-like toxin-producing E. Coli stx1/stx2 EIEC- Shigella/Enteroinvasive E. ColiPerformed By: #### PREG #### [facility] [address] [place] [address] Dr. Esthela Hyman PARASITESGI PANEL PARASITESSumma Health Barberton Campus Comment on above:Performed By: #### PREG #### [facility] [address] [address] [address] Esthela Hyman VIRUSGI PANEL VIRUSESSumma Health Barberton CampusComment on above:Performed By: #### PREG #### [facility] [address] [address] [address] Etshela Duranvirus GI/GIINot detectedNormalNOT DETECTEDCommunity Memorial HospitalComment on above:Performed By: #### PREG #### [facility] [address] [place] [address] Dr. Esthela Mack. ShigelloidesNot detectedNormalNOT DETECTEDThe [facility] HospitalComment on above:Performed By: #### PREG #### [facility] [address] [place] [address] Dr. Esthela StevensRotavirus ANot detectedNormalNOT DETECTEDThe [facility] Comment on above:Performed By: #### PREG #### [facility] [address] [address] [address] Esthela StevensSalmonellaNot detectedNormalNOT DETECTEDThe [facility] Comment on above:Performed By: #### PREG #### [facility] [address] [place] [address] Dr. Esthela StevensSapovirusNot detectedNormalNOT DETECTEDThe [facility] Comment on above:Performed By: #### PREG #### [facility] [address] [place] [address] Dr. Esthela StevensSTECNot detectedNormalNOT DETECTEDThe [facility] HospitalComment on above:Performed By: #### PREG #### [facility] [address] [place] [address] Dr. Esthela HilariobrioNot detectedNormalNOT DETECTEDThe [facility] HospitalComment on above:Performed By: #### PREG #### [facility] [address] [place] [address] Dr. Esthela Sarmientoio CholeraNot detectedNormalNOT DETECTEDCommunity [facility] Hospital Comment on above:Performed By: #### PREG #### [facility] [address] [place] [address] Dr. Esthela De Santiago. EnterocoliticaNot detectedNormalNOT DETECTEDThe [facility] HospitalComment on above:Performed By: #### PREG #### [facility] [address] [place] [address] Dr. Esthela Saunders AUTO DIFFon [id number] #0.1 103/ulNormal0.0-0.1The [facility] HospitalComment on above:Performed By: #### LIVER, LDH, BMP #### [facility] [address] [place] [address] Dr. Esthela StevensBasophils/100 WBC (Bld)0.6 %Normal0.2-2.0The [facility] Comment on above:Performed By: #### LIVER, LDH, BMP #### [facility] [address] [place] [address] Dr. Esthela Alexis #0.5 103/ulNormal0.0-0.7The [facility] HospitalComment on above: Performed By: #### LIVER, LDH, BMP #### [facility] [address] [place] [address] Dr. Esthela Ricciosinophils/100 WBC (Bld)4.3 %Normal0.9-7.0The [facility] Comment on above:Performed By: #### LIVER, LDH, BMP #### [facility] [address] [place] [address] Dr. Esthela Riccirythrocyte distribution width (RBC) [Ratio]13.0 %Kfstcj22.0-15.0 The [facility] HospitalComment on above:Performed By: #### LIVER, LDH, BMP #### [facility] [address] [place] [address] Dr. Esthela StevensHematocrit (Bld) [Volume fraction]33.6 %Critically low36.0-48.0 The [facility] HospitalComment on above:Performed By: #### LIVER, LDH, BMP #### [facility] [address] [place] [address] Dr. Esthela StevensHemoglobin (Bld) [Mass/Vol]10.9 g/dLCritically low12.0-16.0Community [facility] HospitalComment on above:Performed By: #### LIVER, LDH, BMP #### [facility] [address] [place] [address] Dr. Esthela Mclcellan #0.05 10e3/ulCritically high0.00-0.03The [facility] Comment on above:Performed By: #### LIVER, LDH, BMP #### [facility] [address] [place] [address] Dr. Esthela Mcclellan %0.5 %Normal0.0-0.5The [facility] HospitalComment on above: Performed By: #### LIVER, LDH, BMP #### [facility] [address] [place] [address] Dr. Esthela Rich #2.4 103/ulNormal1.2-3.8The [facility] HospitalComment on above:Performed By: #### LIVER, LDH, BMP #### [facility] [address] [place] [address] Dr. Esthela Bonillahocytes/100 WBC (Bld)22.4 %Oclemj72.5-60.0The [facility] HospitalComment on above:Performed By: #### LIVER, LDH, BMP #### [facility] [address] [place] [address] Dr. Esthela Sutton DIFF REQNONormalThe [facility] HospitalComment on above: Performed By: #### LIVER, LDH, BMP #### [facility] [address] [place] [address] Dr. Esthela Fernando (RBC) [Entitic mass]26.9 blHifrwq64.7-34.0The [facility] HospitalComment on above:Performed By: #### LIVER, LDH, BMP #### [facility] [address] [place] [address] Dr. Esthela Vanegas (RBC) [Mass/Vol]32.4 g/bJHyyruq87.9-35.2The [facility] HospitalComment on above:Performed By: #### LIVER, LDH, BMP #### [facility] [address] [place] [address] Dr. Esthela Vanegas (RBC) [Entitic vol]83.0 vXCwdlzl31.0-99.0The [facility] HospitalComment on above:Performed By: #### LIVER, LDH, BMP #### [facility] [address] [place] [address] Dr. Esthela Jackson #0.8 103/ulNormal0.3-0.8The [facility] HospitalComment on above:Performed By: #### LIVER, LDH, BMP #### [facility] [address] [place] [address] Dr. Esthela Chanocytes/100 WBC (Bld)7.1 %Normal1.7-12.0The [facility] Comment on above:Performed By: #### LIVER, LDH, BMP #### [facility] [address] [place] [address] Dr. Esthela AndersonUT #7.0 103/ulCritically high1.4-6.5The [facility] Comment on above:Performed By: #### LIVER, LDH, BMP #### [facility] [address] [place] [address] Dr. Esthela Andersonutrophils/100 WBC (Bld)65.1 %Uynsaw68.0-75.0The [facility] HospitalComment on above:Performed By: #### LIVER, LDH, BMP #### [facility] [address] [place] [address] Dr. Esthela Pressleylet mean volume (Bld) [Entitic vol]8.9 fLCritically low 9.5-13.5The [facility] HospitalComment on above:Performed By: #### LIVER, LDH, BMP #### [facility] [address] [place] [address] Dr. Esthela WhitakerT519 103/ulCritically usvu550-277Ghl [facility] HospitalComment on above:Performed By: #### LIVER, LDH, BMP #### [facility] [address] [place] [address] Dr. Esthela StevensRBC4.05 106/ulCritically low4.20-5.40The [facility] HospitalComment on above:Performed By: #### LIVER, LDH, BMP #### [facility] [address] [place] [address] Dr. Esthela StevensWBC10.8 103/ulNormal4.0-11.0The [facility] HospitalComment on above:Performed By: #### LIVER, LDH, BMP #### [facility] [address] [place] [address] Dr. Esthela Walker 14(COMP METB)on [id number] [Mass/Vol]3.7 g/dLNormal 3.4-5.0The [facility] HospitalComment on above:Performed By: #### LIVER, LDH, BMP #### [facility] [address] [place] [address] Dr. Esthela StevensAlbumin/Globulin [Mass ratio]1.0 {ratio}NormalThe [facility] HospitalComment on above:Performed By: #### LIVER, LDH, BMP #### [facility] [address] [address] [address] Esthela JeanP [Catalytic activity/Vol]75 U/WYcovar28-570Smh [facility] HospitalComment on above:Performed By: #### LIVER, LDH, BMP #### [facility] [address] [place] [address] Dr. Esthela Saenz [Catalytic activity/Vol]95 U/LCritically elym44-62Xvu [facility] HospitalComment on above:Performed By: #### LIVER, LDH, BMP #### [facility] [address] [place] [address] Dr. Esthela Smith gap [Moles/Vol]13.4 mmol/LNormalThe [facility] Comment on above:Performed By: #### LIVER, LDH, BMP #### [facility] [address] [place] [address] Dr. Esthela StevensAST [Catalytic activity/Vol]31 U/HScocbt06-25Xxq [facility] HospitalComment on above:Performed By: #### LIVER, LDH, BMP #### [facility] [address] [place] [address] Dr. Esthela StevensBilirubin [Mass/Vol]0.1 mg/dLCritically low0.2-1.0The [facility] HospitalComment on above:Performed By: #### LIVER, LDH, BMP #### [facility] [address] [place] [address] Dr. Esthela StevensCalcium [Mass/Vol]9.3 mg/dLNormal8.5-10.1[facility] Comment on above:Performed By: #### LIVER, LDH, BMP #### [facility] [address] [address] [address] Esthela StevensChloride [Moles/Vol]102 mmol/HUgpnds49-185Iog [facility] Comment on above:Performed By: #### LIVER, LDH, BMP #### [facility] [address] [address] [address] Esthela StevensCO2 [Moles/Vol]26.4 mmol/AVpeblf48.0-32.0The [facility] Comment on above:Performed By: #### LIVER, LDH, BMP #### [facility] [address] [address] [address] Esthela StevensCreatinine [Mass/Vol]0.67 mg/dLNormal0.55-1.02The [facility] HospitalComment on above:Performed By: #### LIVER, LDH, BMP #### [facility] [address] [place] [address] Dr. Proctor ChangEGFR-AF CYPRIOT>60Normal>=60The [facility] HospitalComment on above:Performed By: #### LIVER, LDH, BMP #### [facility] [address] [place] [address] Dr. Esthela RicciGFR-NON AF CYPRIOT>60Normal>=60The [facility] HospitalComment on above:Performed By: #### LIVER, LDH, BMP #### [facility] [address] [place] [address] Dr. Esthela StevensGlobulin (S) [Mass/Vol]3.7 g/dLNormalThe [facility] HospitalComment on above:Performed By: #### LIVER, LDH, BMP #### [facility] [address] [place] [address] Dr. Esthela StevensGlucose [Mass/Vol]101 mg/gPEowreb34-793Bxy [facility] Comment on above:Performed By: #### LIVER, LDH, BMP #### [facility] [address] [place] [address] Dr. Esthela StevensPotassium [Moles/Vol]3.8 mmol/LNormal3.5-5.1The [facility] Comment on above:Performed By: #### LIVER, LDH, BMP #### [facility] [address] [address] [address] Esthela StevensProtein [Mass/Vol]7.4 g/dLNormal6.4-8.2The [facility] Comment on above:Performed By: #### LIVER, LDH, BMP #### [facility] [address] [address] [address] Esthela StevensSodium [Moles/Vol]138 mmol/SBrmkgi360-522Ruk [facility] Comment on above:Performed By: #### LIVER, LDH, BMP #### [facility] [address] [address] [address] Esthela StevensUrea nitrogen [Mass/Vol]12.0 mg/dLNormal7.0-18.0[facility] HospitalComment on above:Performed By: #### LIVER, LDH, BMP #### [facility] [address] [place] [address] Dr. Esthela StevensUrea nitrogen/Creatinine [Mass ratio]17.9 mg/mgNormalThe [facility] HospitalComment on above:Performed By: #### LIVER, LDH, BMP #### [facility] [address] [place] [address] Dr. Esthela StevensCALCIUMon [id number] [Mass/Vol]9.0 mg/dL8.6 - 10.5 mg/dL [facility] HospitalCBC,PLATELETSon 72-73-0093Rynjqxjjmpt distribution width (RBC) [Ratio]13.1 %10.8 - 14.9 %[facility] HospitalHematocrit (Bld) [Volume fraction]33.0 %Low34.9 - 44.3 %[facility] HospitalHemoglobin (Bld) [Mass/Vol]10.5 g/dLLow11.4 - 15.2 g/dLCleveland Clinic Marymount HospitalInterpretation and review of laboratory resultsAbnoSt. Rita's Hospital (RBC) [Entitic mass]27.1 pg25.9 - 33.9 pgOSU Wexner Medical CenterMCHC (RBC) [Mass/Vol]31.8 g/dL31.4 - 35.9 g/dLCleveland Clinic Marymount HospitalMCV (RBC) [Entitic vol]85.1 fL79.6 - 97.7 [facility] Memorial HospitalPlatelet mean volume (Bld) [Entitic vol]9.1 fL8.5 - 12.2 [facility] Memorial HospitalPlatelets (Bld) [#/Vol] 423 10*3/yJLxor279 - 393 K/[facility] Washington TownshipRBC (Bld) [#/Vol]3.88 10*6/uLLowCleveland Clinic Marymount HospitalWBC (Bld) [#/Vol]7.36 10*3/uL3.99 - 11.19 K/uLProvidence Little [facility] of [facility] [place] CampusCHEM 7 (LYTES,BUN,CREA,GLUC)on 88-02-1471Pwpgo gap [Moles/Vol]13 mmol/L7 - 17 mmol/[facility] OhioChloride [Moles/Vol]104 mmol/L98 - 108 mmol/[facility] OhioCO2 [Moles/Vol]26 mmol/L21 - 31 mmol/[facility] Creatinine [Mass/Vol]0.66 mg/dL0.50 - 1.20 mg/dLCleveland Clinic Marymount Hospital GFR/1.73 sq M.predicted CKD-EPI (S/P/Bld) [Vol rate/Area]- [facility]woodsComment on above:Reported eGFR is based on the CKD-EPI 2020 equation using creatinine, age, and sex.Glucose [Mass/Vol]93 mg/dL70 - 99 mg/dL [facility] CenterOsmolality Calc [Osmolality]288OSSamaritan North Health CenterPotassium [Moles/Vol]4.2 mmol/L3.5 - 5.0 mmol/[facility] Sodium [Moles/Vol]139 mmol/L135 - 145 mmol/[facility] OhioUrea nitrogen [Mass/Vol]5 mg/dLLow7 - 25 mg/dLCleveland Clinic Marymount HospitalUrea nitrogen/Creatinine [Mass ratio]8 mg/mgCleveland Clinic Marymount HospitalMAGNESIUMon 22-08-1057Whaubiwbc [Mass/Vol]2.1 mg/dL1.6 - 2.6 mg/dLCleveland Clinic Marymount Hospital No Panel Informationon [phone] and review of laboratory results AbnormalOSSamaritan North Health CenterInterpretation and review of laboratory results NormalOSSamaritan North Health CenterOSSamaritan North Health CenterPHOSPHATE, INORGANICon [phone] [Mass/Vol]4.8 mg/dLHigh2.2 - 4.6 mg/dLCleveland Clinic Marymount HospitalCALCIUMon 26-68-8906Uabidht [Mass/Vol]8.6 mg/dL8.6 - 10.5 mg/dLCleveland Clinic Marymount HospitalCBC,PLATELETSon 57-47-1778Veeenkagraz distribution width (RBC) [Ratio]13.0 %10.8 - 14.9 %[facility] HospitalHematocrit (Bld) [Volume fraction]30.5 %Low34.9 - 44.3 %[facility] HospitalHemoglobin (Bld) [Mass/Vol]9.8 g/dLLow11.4 - 15.2 g/dLCleveland Clinic Marymount HospitalInterpretation and review of laboratory resultsAbnormalODunlap Memorial HospitalMCH (RBC) [Entitic mass]26.8 pg25.9 - 33.9 pgCleveland Clinic Marymount HospitalMCHC (RBC) [Mass/Vol]32.1 g/dL31.4 - 35.9 g/dLCleveland Clinic Marymount HospitalMCV (RBC) [Entitic vol]83.6 fL79.6 - 97.7 [facility] HospitalPlatelet mean volume (Bld) [Entitic vol]9.3 fL 8.5 - 12.2 [facility] HospitalPlatelets (Bld) [#/Vol]374 10*3/uL150 - 393 K/uLU [facility] CenterRBC (Bld) [#/Vol]3.65 10*6/uLLowU [facility] CenterWBC (Bld) [#/Vol]6.07 10*3/uL3.99 - 11.19 K/uLOSSamaritan North Health CenterOSSamaritan North Health CenterCHEM 7 (LYTES,BUN,CREA,GLUC)on 81-02-0792Hlcwf gap [Moles/Vol]11 mmol/L7 - 17 mmol/[facility] OhioChloride [Moles/Vol]106 mmol/L98 - 108 mmol/[facility] OhioCO2 [Moles/Vol]25 mmol/L21 - 31 mmol/[facility] OhioCreatinine [Mass/Vol]0.50 mg/dL0.50 - 1.20 mg/dLCleveland Clinic Marymount HospitalGFR/1.73 sq M.predicted CKD-EPI (S/P/Bld) [Vol rate/Area]- [facility]woodsComment on above:Reported eGFR is based on the CKD-EPI 2020 equation using creatinine, age, and sex.Glucose [Mass/Vol]89 mg/dL70 - 99 mg/dLCleveland Clinic Marymount HospitalOsmolality Calc [Osmolality]285OSSamaritan North Health CenterPotassium [Moles/Vol]4.1 mmol/L3.5 - 5.0 mmol/[facility] Healthodium [Moles/Vol]138 mmol/L135 - 145 mmol/[facility] OhioUrea nitrogen [Mass/Vol]3 mg/dLLow7 - 25 mg/dLCleveland Clinic Marymount HospitalUrea nitrogen/Creatinine [Mass ratio]6 mg/mgCleveland Clinic Marymount HospitalMAGNESIUMon [phone] [Mass/Vol]1.8 mg/dL1.6 - 2.6 mg/dLCleveland Clinic Marymount HospitalNo Panel Informationon 08-11-9715Nvsoxxretvfklf and review of laboratory resultsAbnoMartins Ferry HospitalInterpretation and review of laboratory resultsNoBrea Community Hospital PHOSPHATE, INORGANICon 75-65-3088Wngxuryaq [Mass/Vol]4.9 mg/dLHigh2.2 - 4.6 mg/dLCleveland Clinic Marymount HospitalCALCIUMon 10-52-3716Ozbwzgw [Mass/Vol]8.6 mg/dL8.6 - 10.5 mg/dLCleveland Clinic Marymount HospitalCBC,PLATELETSon 81-60-8125Ewktpwdnvfi distribution width (RBC) [Ratio]12.9 %10.8 - 14.9 %[facility] Hematocrit (Bld) [Volume fraction]31.1 %Low34.9 - 44.3 %[facility] HospitalHemoglobin (Bld) [Mass/Vol]10.1 g/dLLow11.4 - 15.2 g/dLCleveland Clinic Marymount HospitalInterpretation and review of laboratory resultsAbnormMarymount HospitalH (RBC) [Entitic mass]27.2 pg25.9 - 33.9 pgCleveland Clinic Marymount HospitalMCHC (RBC) [Mass/Vol]32.5 g/dL31.4 - 35.9 g/dLCleveland Clinic Marymount HospitalMCV (RBC) [Entitic vol]83.8 fL79.6 - 97.7 [facility] HospitalPlatelet mean volume (Bld) [Entitic vol]9.2 fL8.5 - 12.2 [facility] HospitalPlatelets (Bld) [#/Vol]344 10*3/uL150 - 393 K/[facility] TownshipRBC (Bld) [#/Vol]3.71 10*6/uLLowCleveland Clinic Marymount HospitalWBC (Bld) [#/Vol]6.21 10*3/uL3.99 - 11.19 K/uLProvidence [facility] CampusCHEM 7 (LYTES,BUN,CREA,GLUC)on 33-73-1251Zwpbz gap [Moles/Vol]11 mmol/L7 - 17 mmol/[facility] OhioChloride [Moles/Vol]105 mmol/L98 - 108 mmol/[facility] [place]CO2 [Moles/Vol]26 mmol/L21 - 31 mmol/[facility] Creatinine [Mass/Vol]0.49 mg/dLLow0.50 - 1.20 mg/dLCleveland Clinic [facility] Hospital GFR/1.73 sq M.predicted CKD-EPI (S/P/Bld) [Vol rate/Area]- PINFOSU [facility] CenterComment on above:Reported eGFR is based on the CKD-EPI 2020 equation using creatinine, age, and sex.Glucose [Mass/Vol]93 mg/dL70 - 99 mg/dL [facility] HospitalInterpretation and review of laboratory resultsAbnormal [facility] HospitalOsmolality Calc [Osmolality]285OSSamaritan North Health CenterPotassium [Moles/Vol]4.0 mmol/L3.5 - 5.0 mmol/LOSSamaritan North Health Center Sodium [Moles/Vol]138 mmol/L135 - 145 mmol/LOSSamaritan North Health CenterUrea nitrogen [Mass/Vol]3 mg/dLLow7 - 25 mg/dLCleveland Clinic Marymount HospitalUrea nitrogen/Creatinine [Mass ratio]6 mg/mgCleveland Clinic Marymount HospitalMAGNESIUMon 06-94-0117Hwtdilrtl [Mass/Vol]1.9 mg/dL1.6 - 2.6 mg/dLCleveland Clinic [facility] Hospital No Panel Informationon [id number] and review of laboratory results NormalProvidence Little [facility] of [facility] CampusPHOSPHATE, INORGANICon 66-30-8858Yjsyhmxrl [Mass/Vol]4.5 mg/dL2.2 - 4.6 mg/dLCleveland Clinic [facility] Hospital CALCIUMon 23-68-2387Wvplsmq [Mass/Vol]8.4 mg/dLLow8.6 - 10.5 mg/dLCleveland Clinic Marymount HospitalCBC,PLATELETSon 38-71-4768Fhepcedtasu distribution width (RBC) [Ratio]12.8 %10.8 - 14.9 %[facility] HospitalHematocrit (Bld) [Volume fraction]31.5 %Low34.9 - 44.3 %[facility] HospitalHemoglobin (Bld) [Mass/Vol]10.0 g/dLLow11.4 - 15.2 g/dLCleveland Clinic Marymount HospitalInterpretation and review of laboratory resultsAbnormMarymount HospitalH (RBC) [Entitic mass]27.0 pg25.9 - 33.9 pgCleveland Clinic Marymount HospitalMCHC (RBC) [Mass/Vol]31.7 g/dL31.4 - 35.9 g/dLCleveland Clinic Marymount HospitalMCV (RBC) [Entitic vol]84.9 fL79.6 - 97.7 [facility] HospitalPlatelet mean volume (Bld) [Entitic vol]9.7 fL8.5 - 12.2 [facility] HospitalPlatelets (Bld) [#/Vol] 327 10*3/uL150 - 393 K/uLCleveland Clinic Marymount HospitalRBC (Bld) [#/Vol]3.71 10*6/uL LowCleveland Clinic Marymount HospitalWBC (Bld) [#/Vol]7.91 10*3/uL3.99 - 11.19 K/uLProvidence Little [facility] of [facility] CampusCHEM 7 (LYTES,BUN,CREA,GLUC)on 58-62-5320Apahu gap [Moles/Vol]13 mmol/L7 - 17 mmol/[facility] Chloride [Moles/Vol]102 mmol/L98 - 108 mmol/[facility] [place]CO2 [Moles/Vol]23 mmol/L21 - 31 mmol/[facility] OhioCreatinine [Mass/Vol] 0.48 mg/dLLow0.50 - 1.20 mg/dLCleveland Clinic Marymount HospitalGFR/1.73 sq M.predicted CKD-EPI (S/P/Bld) [Vol rate/Area]- [facility]woodsComment on above:Reported eGFR is based on the CKD-EPI 2020 equation using creatinine, age, and sex.Glucose [Mass/Vol]154 mg/aMJnsq82 - 99 mg/dLCleveland Clinic Marymount Hospital Osmolality Calc [Osmolality]282C[facility] HospitalPotassium [Moles/Vol]4.1 mmol/L3.5 - 5.0 mmol/[facility] Healthodium [Moles/Vol]134 mmol/LLow 135 - 145 mmol/[facility] OhioUrea nitrogen [Mass/Vol]3 mg/dLLow7 - 25 mg/dLCleveland Clinic Marymount HospitalUrea nitrogen/Creatinine [Mass ratio]6 mg/mgCleveland Clinic Marymount HospitalMAGNESIUMon 58-39-7779Tfqwomobp [Mass/Vol]1.8 mg/dL1.6 - 2.6 mg/dLCleveland Clinic Marymount HospitalNo Panel Informationon 05-26-2022 Interpretation and review of laboratory resultsAbSelect Medical [facility] [place] Interpretation and review of laboratory resultsNoMartins Ferry Hospital [facility] CenterPHOSPHATE, INORGANICon 45-06-5556Pqookalgo [Mass/Vol] 3.4 mg/dL2.2 - 4.6 mg/dLCleveland Clinic Marymount HospitalCALCIUMon 28-03-9908Mnjmjfn [Mass/Vol]8.5 mg/dLLow8.6 - 10.5 mg/dLCleveland Clinic Marymount HospitalCBC,PLATELETSon 50-16-7625Wdpxqsqorsu distribution width (RBC) [Ratio]12.8 %10.8 - 14.9 %[facility] HospitalHematocrit (Bld) [Volume fraction]31.7 %Low34.9 - 44.3 %[facility] HospitalHemoglobin (Bld) [Mass/Vol]9.8 g/dLLow11.4 - 15.2 g/dLCleveland Clinic Marymount HospitalInterpretation and review of laboratory resultsAbSelect Medical [facility], AvonMCH (RBC) [Entitic mass]26.6 pg25.9 - 33.9 pgU [facility] CenterMCHC (RBC) [Mass/Vol]30.9 g/dLLow31.4 - 35.9 g/dLCleveland Clinic Marymount HospitalMCV (RBC) [Entitic vol]85.9 fL79.6 - 97.7 [facility] HospitalPlatelet mean volume (Bld) [Entitic vol]9.7 fL8.5 - 12.2 [facility] HospitalPlatelets (Bld) [#/Vol]292 10*3/uL150 - 393 K/uLU [facility] CenterRBC (Bld) [#/Vol]3.69 10*6/uLLowU [facility] CenterWBC (Bld) [#/Vol]9.85 10*3/uL3.99 - 11.19 K/uLOSU [facility] CenterOSSamaritan North Health CenterCHEM 7 (LYTES,BUN,CREA,GLUC)on 10-33-7182Xtvpy gap [Moles/Vol]13 mmol/L7 - 17 mmol/[facility] OhioChloride [Moles/Vol]104 mmol/L98 - 108 mmol/L OSSamaritan North Health CenterCO2 [Moles/Vol]24 mmol/L21 - 31 mmol/[facility] OhioCreatinine [Mass/Vol]0.51 mg/dL0.50 - 1.20 mg/dLCleveland Clinic Marymount HospitalGFR/1.73 sq M.predicted CKD-EPI (S/P/Bld) [Vol rate/Area]- [facility]woodsComment on above:Reported eGFR is based on the CKD-EPI 2020 equation using creatinine, age, and sex.Glucose [Mass/Vol]98 mg/dL70 - 99 mg/dL [facility] HospitalOsmolality Calc [Osmolality]283OSSamaritan North Health CenterPotassium [Moles/Vol]4.0 mmol/L3.5 - 5.0 mmol/[facility] Sodium [Moles/Vol]137 mmol/L135 - 145 mmol/[facility] OhioUrea nitrogen [Mass/Vol]2 mg/dLLow7 - 25 mg/dLCleveland Clinic Marymount HospitalUrea nitrogen/Creatinine [Mass ratio]4 mg/mgCleveland Clinic Marymount HospitalMAGNESIUMon 24-45-8337Wmcisucvz [Mass/Vol]1.8 mg/dL1.6 - 2.6 mg/dLC[facility] Clinic [facility] No Panel Informationon 92-07-8438Zgxhtexuqjdvbg and review of laboratory results AbnormalCleveland Clinic Marymount HospitalInterpretation and review of laboratory results NormalProvidence Little [facility] of [facility] CampusPHOSPHATE, INORGANICon 43-72-3060Kaqpztegz [Mass/Vol]3.2 mg/dL2.2 - 4.6 mg/dLCleveland Clinic [facility] Hospital CALCIUMon 82-42-3895Uozvscd [Mass/Vol]7.9 mg/dLLow8.6 - 10.5 mg/dLCleveland Clinic Marymount HospitalCBC,PLATELETSon 10-19-0592Rsewzpfwnah distribution width (RBC) [Ratio]13.2 %10.8 - 14.9 %[facility] HospitalHematocrit (Bld) [Volume fraction]33.0 %Low34.9 - 44.3 %[facility] HospitalHemoglobin (Bld) [Mass/Vol]10.4 g/dLLow11.4 - 15.2 g/dLCleveland Clinic Marymount HospitalInterpretation and review of laboratory resultsAbnormMarymount HospitalH (RBC) [Entitic mass]27.2 pg25.9 - 33.9 pgCleveland Clinic Marymount HospitalMCHC (RBC) [Mass/Vol]31.5 g/dL31.4 - 35.9 g/dLCleveland Clinic Marymount HospitalMCV (RBC) [Entitic vol]86.2 fL79.6 - 97.7 [facility] HospitalPlatelet mean volume (Bld) [Entitic vol]9.7 fL8.5 - 12.2 [facility] HospitalPlatelets (Bld) [#/Vol] 270 10*3/uL150 - 393 K/uLCleveland Clinic Marymount HospitalRBC (Bld) [#/Vol]3.83 10*6/uL LowCleveland Clinic Marymount HospitalWBC (Bld) [#/Vol]13.10 10*3/uLHigh3.99 - 11.19 K/uL [facility] CampusCHEM 7 (LYTES,BUN,CREA,GLUC)on 47-75-2855Stqac gap [Moles/Vol]10 mmol/L7 - 17 mmol/[facility] Chloride [Moles/Vol]105 mmol/L98 - 108 mmol/[facility] [place]CO2 [Moles/Vol]24 mmol/L21 - 31 mmol/[facility] OhioCreatinine [Mass/Vol] 0.51 mg/dL0.50 - 1.20 mg/dLCleveland Clinic Marymount HospitalGFR/1.73 sq M.predicted CKD- EPI (S/P/Bld) [Vol rate/Area]- [facility]woodsComment on above: Reported eGFR is based on the CKD-EPI 2020 equation using creatinine, age, and sex.Glucose [Mass/Vol]121 mg/sXJmnx92 - 99 mg/dLCleveland Clinic [facility] Hospital Osmolality Calc [Osmolality]281OSSamaritan North Health CenterPotassium [Moles/Vol]4.1 mmol/L3.5 - 5.0 mmol/[facility] Instituteodium [Moles/Vol]135 mmol/L135 - 145 mmol/[facility] CenterUrea nitrogen [Mass/Vol]2 mg/dLLow7 - 25 mg/dLCleveland Clinic Marymount HospitalUrea nitrogen/Creatinine [Mass ratio]4 mg/mgCleveland Clinic Marymount HospitalMAGNESIUMon 26-21-5790Xzlkklodoveeiy and review of laboratory resultsNoMartins Ferry HospitalMagnesium [Mass/Vol]1.7 mg/dL 1.6 - 2.6 mg/dLCleveland Clinic Marymount HospitalNo Panel Informationon 05-24-2022 Interpretation and review of laboratory resultsAbNorthBay Medical CenterPHOSPHATE, INORGANICon 46-62-3612Xfztgxunc [Mass/Vol] 2.1 mg/dLLow2.2 - 4.6 mg/dLCleveland Clinic Marymount HospitalCALCIUMon 51-72-1391Nhzgvgo [Mass/Vol]8.0 mg/dLLow8.6 - 10.5 mg/dLCleveland Clinic Marymount HospitalInterpretation and review of laboratory resultsAbSelect Medical [facility], AvonCBC,PLATELETSon 20-86-3076Mivphrwfjoa distribution width (RBC) [Ratio]13.0 %10.8 - 14.9 %[facility] HospitalHematocrit (Bld) [Volume fraction]38.4 %34.9 - 44.3 %[facility] HospitalHemoglobin (Bld) [Mass/Vol]12.3 g/dL11.4 - 15.2 g/dLCleveland Clinic Marymount HospitalInterpretation and review of laboratory resultsAbSelect Medical [facility], AvonMCH (RBC) [Entitic mass]26.8 pg25.9 - 33.9 pgCleveland Clinic Marymount HospitalMCHC (RBC) [Mass/Vol]32.0 g/dL31.4 - 35.9 g/dLCleveland Clinic Marymount HospitalMCV (RBC) [Entitic vol]83.7 fL79.6 - 97.7 [facility] Platelet mean volume (Bld) [Entitic vol]9.6 fL8.5 - 12.2 [facility] HospitalPlatelets (Bld) [#/Vol]354 10*3/uL150 - 393 K/[facility] RBC (Bld) [#/Vol]4.59 10*6/uLCleveland Clinic Marymount HospitalWBC (Bld) [#/Vol]12.80 10*3/uLHigh3.99 - 11.19 K/uLProvidence [facility] CHEM 7 (LYTES,BUN,CREA,GLUC)Ordered By: Shraddha Munguia on 10-03-3371Cowbe gap [Moles/Vol]13 mmol/L7 - 17 mmol/[facility] OhioChloride [Moles/Vol] 103 mmol/L98 - 108 mmol/[facility] [place]CO2 [Moles/Vol]24 mmol/L21 - 31 mmol/[facility] OhioCreatinine [Mass/Vol]0.68 mg/dL0.50 - 1.20 mg/dLCleveland Clinic Marymount HospitalGFR/1.73 sq M.predicted CKD-EPI (S/P/Bld) [Vol rate/Area]- [facility]woodsComment on above:Reported eGFR is based on the CKD-EPI 202 equation using creatinine, age, and sex.Glucose [Mass/Vol] 148 mg/jCWzac74 - 99 mg/dLCleveland Clinic Marymount HospitalInterpretation and review of laboratory resultsAbnormOhioHealth Mansfield HospitalOsmolality Calc [Osmolality] 285OS[facility] CenterPotassium [Moles/Vol]4.9 mmol/L3.5 - 5.0 mmol/[facility] Healthodium [Moles/Vol]135 mmol/L135 - 145 mmol/[facility] OhioUrea nitrogen [Mass/Vol]4 mg/dLLow7 - 25 mg/dLCleveland Clinic Marymount HospitalUrea nitrogen/Creatinine [Mass ratio]6 mg/mgProvidence [facility] CampusMAGNESIUMon 21-50-3083Sjuibhkee [Mass/Vol]2.5 mg/dL1.6 - 2.6 mg/dLCleveland Clinic Marymount HospitalNo Panel Informationon 05-23-2022 Interpretation and review of laboratory resultsNoMartins Ferry Hospital OSSamaritan North Health CenterPHOSPHATE, INORGANICon 33-71-6629Eeztzxruu [Mass/Vol] 2.7 mg/dL2.2 - 4.6 mg/dLCleveland Clinic Marymount HospitalBETA HCG, URINE (POC DEVICE)on 05-58-0624Ziki HCG ( test) Ql (U)NegativeNegativeCleveland Clinic Marymount HospitalInterpretation and review of laboratory resultsNoMartins Ferry HospitalTest performed at address of the patient encounter.[facility] CampusCALCIUMon 82-94-0235Tzvdejg [Mass/Vol]7.8 mg/dL Low8.6 - 10.5 mg/dLCleveland Clinic Marymount HospitalCBC,PLATELETSon 05-22-2022 Erythrocyte distribution width (RBC) [Ratio]12.7 %10.8 - 14.9 %[facility] HospitalHematocrit (Bld) [Volume fraction]37.0 %34.9 - 44.3 %[facility] HospitalHemoglobin (Bld) [Mass/Vol]12.0 g/dL11.4 - 15.2 g/dLCleveland Clinic Marymount HospitalInterpretation and review of laboratory resultsAbnoMartins Ferry HospitalMCH (RBC) [Entitic mass]26.3 pg25.9 - 33.9 pgCleveland Clinic Marymount HospitalMCHC (RBC) [Mass/Vol]32.4 g/dL31.4 - 35.9 g/dLCleveland Clinic Marymount HospitalMCV (RBC) [Entitic vol]81.0 fL79.6 - 97.7 [facility] HospitalPlatelet mean volume (Bld) [Entitic vol]9.5 fL8.5 - 12.2 [facility] HospitalPlatelets (Bld) [#/Vol]350 10*3/uL150 - 393 K/[facility] TownshipRBC (Bld) [#/Vol] 4.57 10*6/[facility] TownshipWBC (Bld) [#/Vol]17.70 10*3/uLHigh3.99 - 11.19 K/uLProvidence Little [facility] of [facility] CampusCHEM 7 (LYTES,BUN,CREA,GLUC)on 39-43-4549Wqukx gap [Moles/Vol]16 mmol/L7 - 17 mmol/[facility] OhioChloride [Moles/Vol]103 mmol/L98 - 108 mmol/[facility] [place]CO2 [Moles/Vol]21 mmol/L21 - 31 mmol/[facility] Creatinine [Mass/Vol]0.56 mg/dL0.50 - 1.20 mg/dLCleveland Clinic [facility] Hospital GFR/1.73 sq M.predicted CKD-EPI (S/P/Bld) [Vol rate/Area]- [facility]woodsComment on above:Reported eGFR is based on the CKD-EPI 2020 equation using creatinine, age, and sex.Glucose [Mass/Vol]133 mg/lUVncg53 - 99 mg/dLCleveland Clinic Marymount HospitalOsmolality Calc [Osmolality]285[facility] HospitalPotassium [Moles/Vol]3.9 mmol/L3.5 - 5.0 mmol/[facility] Sodium [Moles/Vol]136 mmol/L135 - 145 mmol/[facility] OhioUrea nitrogen [Mass/Vol]6 mg/dLLow7 - 25 mg/dLCleveland Clinic Marymount HospitalUrea nitrogen/Creatinine [Mass ratio]11 mg/mgCleveland Clinic Marymount HospitalCONTINUOUS CARDIAC MONITORING STRIPon [phone] [place], [place] [address]CONTINUOUS CARDIAC MONITORING STRIPOrdered By: Unassigned Pacs on [phone] [place] [address] Work Phone: HEPATIC FUNCTION PANELon [phone] [Mass/Vol] 3.8 g/dL3.5 - 5.0 g/dLOSU [facility] Health CenterALP [Catalytic activity/Vol]54 U/L32 - 126 U/[facility] CENTERU [facility] CenterALT [Catalytic activity/Vol]17 U/L9 - 48 U/[facility] OhioAST [Catalytic activity/Vol]23 U/L10 - 39 U/[facility] OhioBilirubin [Mass/Vol]0.5 mg/dLNINF - 1.5 mg/dLOSU [facility] Health CenterBilirubin.direct [Mass/Vol]0.2 mg/dLNINF - 0.3 mg/dLOSU [facility] CenterProtein [Mass/Vol]6.3 g/dLLow6.4 - 8.3 g/dLOSSamaritan North Health CenterMAGNESIUMon 92-89-8972Flufycjlf [Mass/Vol]1.4 mg/dLLow1.6 - 2.6 mg/dLOSSamaritan North Health CenterNo Panel Informationon 06-48-4510ESZ/RH(D) TYPEPositiveOSU [facility] Health CenterBLOOD COMPONENT TYPERed Cells, LeukoreducedOSSamaritan North Health CenterEXPIRATION [id number] [facility] CenterProduct ABO/RH(D)PositiveOSU [facility] CenterProduct ABO/RH(D) [id number] [facility] CenterPRODUCT [id number] [facility] CenterUNIT STATUSreleased [facility] CenterOSU [facility] CenterInterpretation and review of laboratory resultsAbnormOhioHealth Mansfield HospitalPHOSPHATE, INORGANICon [phone] and review of laboratory resultsNormOhioHealth Mansfield HospitalPhosphate [Mass/Vol]3.3 mg/dL2.2 - 4.6 mg/dLOSSamaritan North Health CenterPOC ARTERIAL BLOOD GASon 71-34-5477Izih excess Calc (Bld) [Moles/Vol]- 2.1000 mmol/L-3.0 - 3.0 mmol/[facility] CENTERU [facility] CenterCalcium.ionized (Bld) [Mass/Vol]4.22 mg/dLLow4.60 - 5.30 mg/dLCleveland Clinic Marymount HospitalCO2 (Bld) [Partial pressure]33 mm[Hg]OSSamaritan North Health CenterGlucose [Mass/Vol]127 mg/dL High70 - 99 mg/dLOSSamaritan North Health CenterHCO3 (Bld) [Moles/Vol]22 mmol/L22 - 28 mmol/[facility] OhioHematocrit (Bld) [Volume fraction]34.5 %34.2 - 45.6 %OSSamaritan North Health CenterHemoglobin (Bld) [Mass/Vol]11.3 g/dLLow11.4 - 15.2 g/dLCleveland Clinic Marymount HospitalInterpretation and review of laboratory resultsAbnormalODunlap Memorial HospitalLactate [Moles/Vol]1.2 mmol/L0.5 - 1.6 mmol/[facility] OhioOxygen (Bld) [Partial pressure]230 mm[Hg]HighOSSamaritan North Health CenterOxygen saturation in Blood99 %[facility] HospitalpH (Bld)7.42 [pH]7.35 - 7.45[facility] HospitalPotassium [Moles/Vol]3.6 mmol/L3.5 - 5.0 mmol/[facility] Healthodium [Moles/Vol]137 mmol/L135 - 145 mmol/[facility] Healthpecimen source Nom (Unsp spec)ArterialOSSamaritan North Health CenterTest performed at address of the patient encounter.OSSamaritan North Health CenterOSSamaritan North Health CenterBase excess Calc (Bld) [Moles/Vol] 0.0 mmol/L-3.0 - 3.0 mmol/[facility] OhioCalcium.ionized (Bld) [Mass/Vol]4.56 mg/dLLow4.60 - 5.30 mg/dLCleveland Clinic Marymount HospitalCO2 (Bld) [Partial pressure]38 mm[Hg]OSSamaritan North Health CenterGlucose [Mass/Vol]138 mg/dL High70 - 99 mg/dLCleveland Clinic Marymount HospitalHCO3 (Bld) [Moles/Vol]24 mmol/L22 - 28 mmol/[facility] OhioHematocrit (Bld) [Volume fraction]34.7 %34.2 - 45.6 %[facility] HospitalHemoglobin (Bld) [Mass/Vol]11.3 g/dLLow11.4 - 15.2 g/dLCleveland Clinic Marymount HospitalInterpretation and review of laboratory resultsAbnoMartins Ferry HospitalOxygen (Bld) [Partial pressure]197 mm[Hg]HighCleveland Clinic Marymount HospitalOxygen saturation in Blood99 %[facility] HospitalpH (Bld)7.42 [pH]7.35 - 7.45[facility] HospitalPotassium [Moles/Vol]3.4 mmol/LLow3.5 - 5.0 mmol/[facility] Healthodium [Moles/Vol]138 mmol/L135 - 145 mmol/[facility] Healthpecimen source Nom (Unsp spec)ArterialCleveland Clinic Marymount HospitalTest performed at address of the patient encounter.[facility] CampusPREPARE TO TRANSFUSE OR RED BLOOD CELLSon [id number] [id number] Clinic Marymount HospitalUNIT [id number] Little Company of [facility], [facility] CampusPROTIME-INRon 28-61-6960LWF Coag (Bld) [Relative time]1.2 {INR} High0.9 - 1.1[facility] HospitalInterpretation and review of laboratory resultsAbnoMartins Ferry HospitalPT Coag (PPP) [Time]14.8 [facility] HospitalTYPE AND SCREENon [id number]/RH(D) TYPEPositiveOSBayonne Medical CenterXR Abdomen Single viewon 82-23-8608MPSUHTEKJL: Appropriate position of the nasogastric tube in [...] of the nasogastric tube in the stomach. [facility] HospitalRadiology Study observation (narrative)[facility] HospitalXR Abdomen Single viewOrdered By: Debora Burciaga on 05-22-2022 [facility] Work Phone: pREG HCG QUALon [id number], QUALNegative NormalNEGATIVEThe [facility] HospitalComment on above:Performed By: #### PREG #### [facility] [address] [place] [address] Dr. Esthela Salinas-19 PCR ([facility]WOR[facility])on 65-25-8310YEUY-CoV-2 (COVID-19) RNA JORGE LUIS+probe Ql (Unsp spec)Not detectedNormalNOT DETECTEDThe [facility] Comment on above:Result Comment: This test is not yet approved or cleared by the [place] FDA. When there are no FDA-approved or cleared tests available, and other criteria are met, FDA can make tests available under an emergency access mechanism called an Emergency Use Authorization (EUA). The EUA for this test is supported by the [place] of Health and Human Service's (HHS's) declaration [...] SARS-CoV-2.Performed By: #### LIVER, LDH, BMP #### [facility] [address] [place] [address] Dr. Esthela Lemons Abdomen and Pelvis W contrast Jason [id number]: No evidence of metastatic disease in the [...] error, please notify the sender immediately at [phone] and permanently delete the original report and [...] error, please notify the sender immediately at [phone] and permanently delete the original report and destroy any copies or printouts. [facility] CenterCT Abdomen and Pelvis W contrast IVOrdered By: Avinash Miller on 65-93-6975VERDunlap Memorial HospitalCT Chest W contrast Jason 30-75-2192JICDVGSEOX: 1. No evidence for intrathoracic metastatic disease [...] 1. No evidence for intrathoracic metastatic disease [facility] CenterCT Chest W contrast IVOrdered By: Yovany Bills on 56-56-8611SPSDunlap Memorial Hospital Work Phone: no Panel Informationon 66-05-4187Cqkkqurkr Study observation (narrative)OSSamaritan North Health CenterCBC AND ELECTRONIC DIFFon 62-04-6173Lmoeybrhv (Bld) [#/Vol]0.05 10*3/uL0.00 - 0.15 K/uLOSSamaritan North Health CenterBasophils/100 WBC (Bld)0.6 %[facility] HospitalDifferential cell count method Nom (Bld)Electronic DifferentialOSSamaritan North Health Center Eosinophils (Bld) [#/Vol]0.07 10*3/uL0.00 - 0.42 K/uLCleveland Clinic Marymount Hospital Eosinophils/100 WBC (Bld)0.8 %[facility] HospitalErythrocyte distribution width (RBC) [Ratio]13.4 %10.8 - 14.9 %[facility] HospitalHematocrit (Bld) [Volume fraction]37.9 %34.9 - 44.3 %[facility] HospitalHemoglobin (Bld) [Mass/Vol]11.9 g/dL11.4 - 15.2 g/dLCleveland Clinic Marymount HospitalImmature granulocytes (Bld) [#/Vol]0.04 10*3/uL<=0.08[facility] CenterImmature granulocytes/100 WBC (Bld)0.5 %[facility] HospitalInterpretation and review of laboratory resultsAbnormalODunlap Memorial HospitalLymphocytes (Bld) [#/Vol]2.33 10*3/uL1.16 - 3.51 K/uLCleveland Clinic Marymount HospitalLymphocytes/100 WBC (Bld)27.4 %[facility]testant HospitalH (RBC) [Entitic mass]26.3 pg25.9 - 33.9 pgOSU Southwest General Health CenterMCHC (RBC) [Mass/Vol]31.4 g/dL31.4 - 35.9 g/dLCleveland Clinic Marymount HospitalMCV (RBC) [Entitic vol]83.8 fL79.6 - 97.7 [facility] HospitalMonocytes (Bld) [#/Vol]0.46 10*3/uL0.22 - 0.87 K/uLCleveland Clinic Marymount HospitalMonocytes/100 WBC (Bld)5.4 %[facility] HospitalNeutrophils (Bld) [#/Vol]5.55 10*3/uL1.64 - 7.28 K/uLCleveland Clinic Marymount HospitalNucleated RBC/100 WBC (Bld) [Ratio]0.0 %<=0.2 /100 WBCCleveland Clinic Marymount HospitalPlatelet mean volume (Bld) [Entitic vol]10.0 fL8.5 - 12.2 [facility] Platelets (Bld) [#/Vol]402 10*3/oSElah438 - 393 K/[facility] Washington TownshipRBC (Bld) [#/Vol]4.52 10*6/uLOSU Riverview Health Instituteegmented neutrophils/100 WBC (Bld)65.3 %[facility] HospitalWBC (Bld) [#/Vol]8.50 10*3/uL3.99 - 11.19 K/uLOSSamaritan North Health CenterOSSamaritan North Health CenterCOMPREHENSIVE METABOLIC PANELon 23-83-7165Nnacmxz [Mass/Vol]4.5 g/dL3.5 - 5.0 g/dLCleveland Clinic Marymount HospitalALP [Catalytic activity/Vol]67 U/L32 - 126 U/[facility]ALT [Catalytic activity/Vol]15 U/L9 - 48 U/[facility] OhioAnion gap [Moles/Vol]16 mmol/L7 - 17 mmol/[facility] OhioAST [Catalytic activity/Vol]14 U/L10 - 39 U/[facility] OhioBilirubin [Mass/Vol]0.4 mg/dL<1.5C[facility] HospitalCalcium [Mass/Vol]9.8 mg/dL8.6 - 10.5 mg/dLCleveland Clinic Marymount HospitalChloride [Moles/Vol]100 mmol/L98 - 108 mmol/[facility] OhioCO2 [Moles/Vol]27 mmol/L21 - 31 mmol/[facility] Creatinine [Mass/Vol]0.66 mg/dL0.50 - 1.20 mg/dLCleveland Clinic Marymount Hospital GFR/1.73 sq M.predicted CKD-EPI (S/P/Bld) [Vol rate/Area]>90>=60 mL/min/1.73m2 OSSamaritan North Health CenterComment on above:Reported eGFR is based on the CKD-EPI 2020 equation using creatinine, age, and sex.Glucose [Mass/Vol]73 mg/dL70 - 99 mg/dLCleveland Clinic Marymount HospitalOsmolality Calc [Osmolality]287OSSamaritan North Health CenterPotassium [Moles/Vol]3.6 mmol/L3.5 - 5.0 mmol/[facility] Protein [Mass/Vol]7.4 g/dL6.4 - 8.3 g/dLSt. Mary's Medical Center, Ironton Campusodium [Moles/Vol]139 mmol/L135 - 145 mmol/[facility] OhioUrea nitrogen [Mass/Vol]10 mg/dL7 - 25 mg/dLOSU [facility] General Health CenterUrea nitrogen/Creatinine [Mass ratio]15 mg/mgOSU [facility] General Health CenterOSU [facility] Health CenterPT,INR,PTT on 50-06-5808rBYO Coag (PPP) [Time]36.5 [facility]ultman HospitalINR Coag (Bld) [Relative time]1.2 {INR}HighU [facility] CenterInterpretation and review of laboratory resultsAbnoMartins Ferry HospitalPT Coag (PPP) [Time]14.6 [facility] HospitalCBC AUTO DIFF on 13-06-8552XISI #0.1 103/ulNormal0.0-0.1Community Memorial HospitalComment on above: Performed By: #### LIVER, LDH, BMP #### [facility] [address] [place] [address] Dr. Esthela StevensBasophils/100 WBC (Bld)0.5 %Normal0.2-2.0[facility] Comment on above:Performed By: #### LIVER, LDH, BMP #### [facility] [address] [address] [address] Esthela Alexis #0.1 103/ulNormal0.0-0.7The [facility] Memorial HospitalComment on above: Performed By: #### LIVER, LDH, BMP #### [facility] [address] [address] [address] Esthela Ricciosinophils/100 WBC (Bld)1.2 %Normal0.9-7.0[facility] Comment on above:Performed By: #### LIVER, LDH, BMP #### [facility] [address] [address] [address] Esthela Riccirythrocyte distribution width (RBC) [Ratio]13.2 %Pqnfru91.0-15.0 Community Memorial HospitalComment on above:Performed By: #### LIVER, LDH, BMP #### [facility] [address] [place] [address] Dr. Esthela StevensHematocrit (Bld) [Volume fraction]38.4 %Fynotb59.0-48.0The [facility] Memorial HospitalComment on above:Performed By: #### LIVER, LDH, BMP #### [facility] [address] [place] [address] Dr. Esthela StevensHemoglobin (Bld) [Mass/Vol]12.2 g/cBPssqvn69.0-16.0The [facility] HospitalComment on above:Performed By: #### LIVER, LDH, BMP #### [facility] [address] [place] [address] Dr. Esthela Mcclellan #0.06 10e3/ulCritically high0.00-0.03The [facility] Comment on above:Performed By: #### LIVER, LDH, BMP #### [facility] [address] [place] [address] Dr. Esthela Mcclellan %0.6 %Critically high0.0-0.5The [facility] Memorial HospitalComment on above:Performed By: #### LIVER, LDH, BMP #### [facility] [address] [place] [address] Dr. Esthela Rich #2.1 103/ulNormal1.2-3.8The [facility] Memorial HospitalComment on above:Performed By: #### LIVER, LDH, BMP #### [facility] [address] [place] [address] Dr. Esthela Bonillahocytes/100 WBC (Bld)21.7 %Ydkgbd02.5-60.0The [facility] HospitalComment on above:Performed By: #### LIVER, LDH, BMP #### [facility] [address] [place] [address] Dr. Esthela LiangUAL DIFF REQNONormalThe [facility] HospitalComment on above: Performed By: #### LIVER, LDH, BMP #### [facility] [address] [place] [address] Dr. Esthela Fernando (RBC) [Entitic mass]26.5 pgCritically low26.7-34.0The [facility] Springfield HospitalComment on above:Performed By: #### LIVER, LDH, BMP #### [facility] [address] [place] [address] Dr. Esthela Vanegas (RBC) [Mass/Vol]31.8 g/zQQrkxlv14.9-35.2The [facility] Memorial HospitalComment on above:Performed By: #### LIVER, LDH, BMP #### [facility] [address] [place] [address] Dr. Esthela Vanegas (RBC) [Entitic vol]83.5 fMJbeiyd06.0-99.0The [facility] HospitalComment on above:Performed By: #### LIVER, LDH, BMP #### [facility] [address] [place] [address] Dr. Esthela Jackson #0.7 103/ulNormal0.3-0.8The [facility] HospitalComment on above:Performed By: #### LIVER, LDH, BMP #### [facility] [address] [place] [address] Dr. Esthela Chanocytes/100 WBC (Bld)7.5 %Normal1.7-12.0[facility] Comment on above:Performed By: #### LIVER, LDH, BMP #### [facility] [address] [place] [address] Dr. Esthela Bonner #6.8 103/ulCritically high1.4-6.5The [facility] Comment on above:Performed By: #### LIVER, LDH, BMP #### [facility] [address] [place] [address] Dr. Esthela Spenceophils/100 WBC (Bld)68.5 %Qcltdv54.0-75.0The [facility] HospitalComment on above:Performed By: #### LIVER, LDH, BMP #### [facility] [address] [place] [address] Dr. Etshela Novak mean volume (Bld) [Entitic vol]9.4 fLCritically low 9.5-13.5The [facility] HospitalComment on above:Performed By: #### LIVER, LDH, BMP #### [facility] [address] [address] [address] Esthela StevensPLT403 103/dhTvyaiu795-971Pnt [facility] HospitalComment on above: Performed By: #### LIVER, LDH, BMP #### [facility] [address] [place] [address] Dr. Esthela StevensRBC4.60 106/ulNormal4.20-5.40The [facility] HospitalComment on above:Performed By: #### LIVER, LDH, BMP #### [facility] [address] [place] [address] Dr. Esthela StevensWBC9.9 103/ulNormal4.0-11.0The [facility] HospitalComment on above: Performed By: #### LIVER, LDH, BMP #### [facility] [address] [place] [address] Dr. Esthela StevensCT ABD/PELV W CONon 69-63-1694KL ABD/PELV W CONEXAMINATION: CT ABD/PELV W CON [...] Electronically authenticated by: CAROLYNDEMI WALSH Date: 2022-02-03 12:14[facility] CampusCovid-19 PCR (CVDTBH)on 82-03-2296RKOD-CoV-2 (COVID-19) RNA JORGE LUIS+probe Ql (Unsp spec)Not detectedNormalNOT DETECTEDCommunity Memorial Hospital Comment on above:Result Comment: When diagnostic testing [...] for this test is supported by the [place] of Health and Human Service's declaration that [...] used).Performed By: #### LIVER, LDH, BMP #### [facility] [address] [place] [address] Dr. Esthela Knight URINE PROFILEon 33-68-8951Uqrwqkvfc Ql (U)NegativeNormal NEGATIVECommunity Memorial HospitalComaspirus ontonagon hospital on above:Performed By: #### ERUM NICHOLASRO #### [facility] [address] [place] [address] Dr. Esthela Jones (U)CLEARNormalCLEARCommunity Memorial HospitalComment on above: Performed By: #### ERUM NICHOLASRO #### [facility] [address] [place] [address] Dr. Esthela Ordonez (U)LT. YELLOWNormalYELLOWCommunity Memorial HospitalComment on above:Performed By: #### MERISSA NICHOLASICRO #### [facility] [address] [place] [address] Dr. Esthela Sweeney micrscopic examination will be performed if indicated. NormalThe East Springfield HospitalComment on above:Performed By: #### ERUM NICHOLASRO #### [facility] [address] [place] [address] Dr. Esthela StevensGlucose Ql (U)NegativeNormalNEGATIVESt. Rita'S Hospital HospitalComment on above:Performed By: #### CRISTOPHER UMICRO #### [facility] [address] [place] [address] Dr. Esthela StevensHemoglobin Ql (U)NegativeNormalNEGATIVECommunity Memorial Hospital Comment on above:Performed By: #### CRISTOPHER UMHARVINDERRO #### [facility] [address] [place] [address] Dr. Esthela StevensKetones Ql (U)NegativeNormalNEGATIVECommunity Memorial HospitalComment on above:Performed By: #### CRISTOPHER UMICRO #### [facility] [address] [place] [address] Dr. Esthela SteevnsLEUKOCYTESSMALLAbnormalNEGATIVECommunity Memorial HospitalComment on above:Performed By: #### CRISTOPHER UMHARVINDERRO #### [facility] [address] [place] [address] Dr. Esthela StevensNitrite Ql (U)NegativeNormalNEGATIVECommunity Memorial HospitalComment on above:Performed By: #### CRISTOPHER UMICRO #### [facility] [address] [place] [address] Dr. Esthela StevenspH (U)7.0 [pH]Normal5-9The [facility] HospitalComment on above: Performed By: #### CRISTOPHER UMHARVINDERRO #### [facility] [address] [place] [address] Dr. Esthela StevensSPEC GRAVITY1.720Csuphy0.005-<=1.025The [facility] HospitalComment on above:Performed By: #### CRISTOPHER UMHARVINDERRO #### [facility] [address] [place] [address] Dr. Esthela Anna PROTEINNegativeNormalNEGATIVE/ TRACEThe [facility] Comment on above:Performed By: #### MAKENZIE NICHOLAS #### [facility] [address] [place] [address] Dr. Esthela Cassidy MICRO INDINDICATEDNormalThWyandot Memorial HospitalComment on above: Performed By: #### ERUM NICHOLASRO #### [facility] [address] [place] [address] Dr. Esthela Riverabilinogen Qn (U)0.2 {Emeka'U}/dLNormal0.2 - 1.0The [facility] HospitalComment on above:Performed By: #### ERUM NICHOLASRO #### [facility] [address] [place] [address] Dr. Esthela StevensLACTATE/LACTIC ACIDon 56-68-7139Hlfmqst [Moles/Vol]1.3 mmol/L Normal0.4-1.9The [facility] HospitalComment on above:Performed By: #### PREG #### [facility] [address] [place] [address] Dr. Esthela StevensLIPASEon 27-36-9099Sczxqb [Catalytic activity/Vol]58.0 U/L Critically low73.0-393.0The [facility] HospitalComment on above:Performed By: #### LIPA, CMP #### [facility] [address] [place] [address] Dr. Esthela Castellanos HCG QUALon 23-41-8798UGRBFRIAZ, QUALNegativeNormalNEGATIVE The [facility] HospitalComment on above:Performed By: #### LIVER, LDH, BMP #### [facility] [address] [place] [address] Dr. Esthela Walker 14(COMP METB)on 42-93-5514Diyoacn [Mass/Vol]3.8 g/dLNormal 3.4-5.0The [facility] HospitalComment on above:Performed By: #### LIPA, CMP #### [facility] [address] [place] [address] Dr. Esthela StevensAlbumin/Globulin [Mass ratio]1.0 {ratio}NormalThe [facility] HospitalComment on above:Performed By: #### LIPA, CMP #### [facility] [address] [address] [address] Eshtela Pinedo [Catalytic activity/Vol]75 U/OYdjjan06-626Kbb [facility] HospitalComment on above:Performed By: #### LIPA, CMP #### [facility] [address] [address] [address] Esthela Saenz [Catalytic activity/Vol]37 U/SZhlwjj10-78Uph [facility] HospitalComment on above:Performed By: #### LIPA, CMP #### [facility] [address] [place] [address] Dr. Esthela Knutsonon gap [Moles/Vol]14.0 mmol/LNormalThe [facility] Comment on above:Performed By: #### LIPA, CMP #### [facility] [address] [place] [address] Dr. Esthela StevensAST [Catalytic activity/Vol]14 U/LCritically rpf05-14Ufv [facility] HospitalComment on above:Performed By: #### LIPA, CMP #### [facility] [address] [place] [address] Dr. Esthela StevensBilirubin [Mass/Vol]0.2 mg/dLNormal0.2-1.0The [facility] Comment on above:Performed By: #### LIPA, CMP #### [facility] [address] [place] [address] Dr. Esthela StevensCalcium [Mass/Vol]8.9 mg/dLNormal8.5-10.1The [facility] Comment on above:Performed By: #### LIPA, CMP #### [facility] [address] [place] [address] Dr. Esthela StevensChloride [Moles/Vol]103 mmol/GSpbcub30-576Gdi [facility] Comment on above:Performed By: #### LIPA, CMP #### [facility] [address] [place] [address] Dr. Esthela StevensCO2 [Moles/Vol]25.2 mmol/GSzcirb53.0-32.0The [facility] Comment on above:Performed By: #### LIPA, CMP #### [facility] [address] [address] [address] Esthela StevensCreatinine [Mass/Vol]0.72 mg/dLNormal0.55-1.02The [facility] HospitalComment on above:Performed By: #### LIPA, CMP #### [facility] [address] [address] [address] Esthela RicciGFR-AF CYPRIOT>60Normal>=60The [facility] HospitalComment on above:Performed By: #### LIPA, CMP #### [facility] [address] [place] [address] Dr. Esthela Peña-NON AF CYPRIOT>60Normal>=60The [facility] HospitalComment on above:Performed By: #### LIPA, CMP #### [facility] [address] [place] [address] Dr. Esthela StevensGlobulin (S) [Mass/Vol]3.7 g/dLNormalThe [facility] HospitalComment on above:Performed By: #### LIPA, CMP #### [facility] [address] [place] [address] Dr. Esthela StevensGlucose [Mass/Vol]101 mg/dRKdnraj10-529Wue [facility] Comment on above:Performed By: #### LIPA, CMP #### [facility] [address] [place] [address] Dr. Esthela StevensPotassium [Moles/Vol]4.2 mmol/LNormal3.5-5.1The [facility] Comment on above:Performed By: #### LIPA, CMP #### [facility] [address] [place] [address] Dr. Esthela StevensProtein [Mass/Vol]7.5 g/dLNormal6.4-8.2The [facility] Comment on above:Performed By: #### LIPA, CMP #### [facility] [address] [address] [address] Esthela Perezdium [Moles/Vol]138 mmol/HHduhaj106-207Ply [facility] Comment on above:Performed By: #### LIPA, CMP #### [facility] [address] [address] [address] Esthela Jaquez nitrogen [Mass/Vol]11.0 mg/dLNormal7.0-18.0The [facility] HospitalComment on above:Performed By: #### LIPA, CMP #### [facility] [address] [address] [address] Esthela Jaquez nitrogen/Creatinine [Mass ratio]15.3 mg/mgNoLakeHealth Beachwood Medical Centere [facility] HospitalComment on above:Performed By: #### ALEX, CMP #### [facility] [address] [place] [address] Dr. Esthela Bhatia MICROSCOPIC ONLYon 84-74-0434WJTFFBTDTXOG SEENNormalNONE SEENThe [facility] HospitalComment on above:Performed By: #### CRISTOPHER UMICRO #### [facility] [address] [place] [address] Dr. Esthela Wolfe identified Cx Nom (U)NOT INDICATEDNoGrant HospitalComment on above:Performed By: #### CRISTOPHER UMICRO #### [facility] [address] [place] [address] Dr. Esthela Beard SEENNormalNONE SEENCommunity Memorial HospitalComment on above:Performed By: #### CRISTOPHER UMICRO #### [facility] [address] [address] [address] Esthela Mitchell LM Nom (Urine sed)NONE SEENNormalNONE SEENCommunity Memorial HospitalComaspirus ontonagon hospital on above:Performed By: #### CRISTOPHER, UMICRO #### [facility] [address] [place] [address] Dr. Proctor ChangEpithelial cells LM Ql (Urine sed)FEWAbnormalNONE SEEN /RAREThe [facility] HospitalComment on above:Performed By: #### ERUR, UMICRO #### [facility] [address] [address] [address] Esthela StevensMUCOUSKIMBERLY SEENNormalNONE SEENThe [facility] HospitalComment on above:Performed By: #### ERUR, UMICRO #### [facility] [address] [address] [address] Esthela StevensZoyjtSIG3-6Uritph9-5Vvf [facility] HospitalComment on above:Performed By: #### ERUR, UMICRO #### [facility] [address] [address] [address] Esthela StevensWBC2-5AbnormalNONE SEENThe [facility] HospitalComment on above: Performed By: #### ERUR, UMICRO #### [facility] [address] [address] [address] Esthela StevensPregnancy Test, Urineon 29-72-2972Hbwy HCG ( test) Ql (U)[facility] PartnersGravie [employer] Other Urinalysis - AUTOMATEDon 74-59-8488Vwyhdgwvwa (U)clear [employer] Other Bilirubin Ql (U)[facility] PartnersGravie [employer] Other Color (U)yellowSeven Valleys [employer] Other Glucose Ql (U)[facility] [employer] Other Hemoglobin Ql (U)NegativeGravie [employer] Other Ketones Ql (U)15Nbo[facility] [employer] Other Leukocyte esterase Test strip Ql (U)R[employer] Other Nitrite Ql (U)[facility] PartnersGravie [employer] Other pH (U)7.0 [pH][employer] Other Protein Ql (U)[facility] Health PartnersIIZI group Other Specific gravity (U) [Rel density]1.020[employer] Other Urobilinogen (U) [Mass/Vol]0.2 mg/dLLayerVault Other Urinalysis - AUTOMATEDLayer[employer] Other Coding Summary.on 30-76-5771Vkuwiv Summary. CD:[id number]:[id number]+PGhlYWQ+RW6BPLDjD67jcBXmnB0NZ5wLXC3WXSEWHHPKCU1IWL6uw NL0EDncM4GwtuLa [file] cHNl (more content not included)...[facility] Medical CenterConsent for Treatmenton 12-97-2096Qxymhax for Treatment [id number]#1.00CD:[address] [place], [place] [address]Discharge Instructionson 63-64-6747Gtuzgfsgf Instructions [id number]#1.00CD:127[facility] Clinical Summaryon 29-47-6349NO Clinical Summary [address] [place] [address] ED Clinical Summary Person Information Name: ZAINAB GRANADOS Johanna/[facility] Age: 25 Years : 1995 Sex: Female Language: [place] PCP: ERIN WHITESIDE CNP Marital Status: Single [...] 02/17/2021 11:52:53 02/17/2021 11:52:53 02/17/2021 11:52:53 ADDRESS: [address] [place] [phone] [facility] DOC NOTES: MEDICAL INFORMATION: Prescriptions Given: New Medications Printed Prescriptions lorazepam (Ativan 1 mg Tab) 1 Tablets By Mouth every 8 hours for 2 Days. Take one by mouth every eight hours as needed. Refills: 0. PATIENT EDUCATION INFORMATION: Instructions: Suicidal Feelings: How to Help Yourself; Managing Anxiety, Adult Follow up: With: Address: When: [facility] In day 02/18/2021 With: Address: When: ERIN WHITESIDE [address] [place] [phone] Business (1) In 3 days DIAGNOSIS: Anxiety; Suicidal ideationNormalFisher Severino Medical CenterED Note-Physicianon [id number] Note-PhysicianBasic Information Time Seen: Vinicius Childers DO [...] Oral, q8hr Follow-up With When Contact Information [facility] In 1 day 02/18/2021 EDT Additional Instructions: ERIN WHITESIDE In 3 days [address] [facility] [place] [phone] Business (1) Additional Instructions: Patient Education Suicidal Feelings: How to Help Yourself Managing Anxiety, Adult Problem List/Past Medical History Ongoing No qualifying data Historical No qualifying data Medications Inpatient No active inpatient medications Home No active home medications Allergies No Known Medication Allergies Lab Results No qualifying data available. Diagnostic Results No qualifying data available.[facility] Medical CenterComment on above: Result Comment: Electronically Signed By: Vinicius Childers DO\.jim\Date and Time Signed: 02/17/21 11:41EDTED Patient Education Noteon [id number] Patient Education NoteMental and Behavioral Health Suicidal [...] services (911 in the [place] ? [facility] and human services helpline (211 in the [place] ? Go to your nearest emergency department. ? Call a suicide hotline to speak with a trained counselor. The following suicide hotlines are available in the [place]: ? 4-777-072-TALK ( ). ? 3-412-AOFRXWZ ( ). ? . This is a hotline for Andorran speakers. ? . This is a hotline for TTY users. ? 7-724-5-U-SE ( ). This is a hotline for lesbian, escobar, bisexual, transgender, or questioning youth. ? For a list of hotlines in [place], visit www.suicide.org/hotlines/international/aikczu-rxtpdhr-zlasocgt.html ? Contact a crisis center or a [...] even if you do not feel sociable. Ewhr-sh-muqk conversation is best to help them understand [...] can help you feel better. ? Take tzkz-xtm-jtmfnjr and prescription medicines only as told by [...] Prevention Lifeline: www.suicidepreventionlifeline.org ? Hopeline: www.hopeline.com ? [place] Foundation for Suicide Prevention: www.afsp.org ? The Se Project (for lesbian, escobar, bisexual, transgender, or questioning youth): www.DNA13vorproject.org Contact a health care provider if: ? You feel as though you are a burden to others. ? You feel agitated, angry, vengeful, or have extreme mood swings. ? You have withdrawn from family and friends. Get (more content not included)...[facility] Patient Summaryon [id number] Patient Summary [place] [id number] Patient Discharge Instructions Person Information Name: ZAINAB GRANADOS Age: 25 Years Arrival Date: 02/17/2021 09:42:11 Discharge Diagnosis: Anxiety; Suicidal ideation Primary Care Physician: ERIN WHITESIDE CNP Provider Information Primary Provider: Vinicius Childers DO Advanced Youth Leader:None The exam and treatment you received in the Emergency Department were for an urgent problem and are not intended as complete care. It is important that you follow up with a doctor, nurse practitioner,or physician?s admissions assistant for ongoing care. If your symptoms become worse or you do not improve as expected and you are unable to reach your usual health care provider, you should return to the Emergency Department. We are available 24 hours a day. ZAINAB GRANADOS has been given the following list of patient education materials, prescriptions and follow-up instructions: Follow-up Instructions: With: Address: When: [facility] In 1 day 02/18/2021 With: Address: When: ERIN WHITESIDE [address] [place] [phone] Business (1) In 3 days In the [...] opioids can be used to help relieve xpmvfiov-mg-kedref pain and are often prescribed following a [...] your health care professio (more content not included)...[facility] Valuables Checkliston [id number] Checklist [id number]:[facility] Vital Signs Date TimeVital SignValuePerforming EauvmaydaBglpoxig01-58-9932 10:51-0400Body mass index (BMI) [Ratio]26.84 kg/g1KehhpPerformance [employer] Work Phone: [facility] HospitalZwqyjlygxq44-88-5483 10:51-0400Body .72 kgCorey AldenDexcom Work Phone: [facility] HospitalWskjedotph48-81-3230 10:51-0400Diastolic blood hinghoay01 mm[Hg][facility] [employer] Work Phone: [facility] HospitalKryxbgaflf47-34-7871 10:51-0400Systolic blood ruqmnjod934 mm[Hg][facility] [employer] Work Phone: [facility] HospitalWaarswfemy58-85-3703 09:58-0400Diastolic blood iqerxgwx07 mm[Hg]Christopher Moralez APRN-SECURITY ROVER Work Phone: [facility]07-07-2025 09:58-0400Systolic blood wxlfuhzl412 mm[Hg]Christopher Moralez APRN-SECURITY ROVER Work Phone: [facility]06-05-2025 08:59-0400Body mass index (BMI) [Ratio]28.61 kg/k5XorrgbgNadege Pleitez MD Work Phone: [facility]06-05-2025 08:59-0400Body .67 kgNadege Pleitez MD Work Phone: [facility]06-05-2025 08:59-0400 Diastolic blood avvhggzo49 mm[Hg]Nadege Pleitez MD Work Phone: [facility]06-05-2025 08:59-0400Heart rate88 /Neeta Pleitez MD Work Phone: [facility]06-05-2025 08:59-0400 Respiratory rate16 /Neeta Pleitez MD Work Phone: [facility]06-05-2025 08:59-7498XpI3% (BldA) [Mass fraction]99 %Nadege Pleitez MD Work Phone: [facility]06-05-2025 08:59-0400Systolic blood xombkgie325 mm[Hg]Nadege Pleitez MD Work Phone: [facility]2025 11:19-0400Body mass index (BMI) [Ratio]26.66 kg/n3Pcllh Alden DO Work Phone: [facility] HospitalJuljkbevha42-31-5090 11:19-0400Body eftgiz23.27 kgCorey Alden DO Work Phone: [facility] HospitalNahnwzduax02-50-3876 11:19-0400Diastolic blood mm[Hg]Ron Alden DO Work Phone: 1(221)517-[facility] HospitalFwvijmlgdf38-95-6198 11:19-0400Systolic blood jzlqktco636 mm[Hg]Ron Alden DO Work Phone: 7(039)827-[facility] HospitalXmmkkcjcqy15-23-6267 10:30-0400Body mass index (BMI) [Ratio]26.82 kg/p0Gbonf Aledn DO Work Phone: [facility] HospitalFgtahctylq00-23-3173 10:30-0400Body mzionv96.67 kgCorey Alden DO Work Phone: [facility] HospitalKgvijkzvif71-77-1144 10:30-0400Diastolic blood kkefndty56 mm[Hg]Ron Alden DO Work Phone: [facility] HospitalAffhqujuix18-90-6994 10:30-0400Systolic blood atrtxfcl631 mm[Hg]Ron Alden DO Work Phone: [facility] HospitalKnoqwjojih32-16-5571 14:54-0400Body .[address] MD Work Phone: 1(562)[address] [place], [place] 7353804-24-2025 14:54-0400Body mass index (BMI) [Ratio]29.29 kg/n2JwzkdYadira Lane MD Work Phone: 1(518)[address] [place], [place] 7353804-24-2025 14:54-0400Body rzzdgbpwfka89.91 [degF]Yadira Lane MD Work Phone: 1(997)[address] [place], [place] 7353804-24-2025 14:54-0400Body lgkgxa89.[address] MD Work Phone: 1(926)[address] [place], [place] 7353804-24-2025 14:54-0400 Diastolic blood flooxzcv21 mm[Hg]Yadira Lane MD Work Phone: 1(878)[address] [place], [place] 7353804-24-2025 14:54-0400Heart rate78 /minYadira Lane MD Work Phone: 1(139)[address] [place], [place] 7353804-24-2025 14:54-0400 Respiratory rate14 /minYadira Lane MD Work Phone: 1(842)[address] [place], [place] 7353804-24-2025 14:54-8944UtW7% (BldA) [Mass fraction]97 %Yadira Lane MD Work Phone: 1(279)[address] [place], [place] 7353804-24-2025 14:54-0400Systolic blood mm[Hg]Yadira Lane MD Work Phone: 1(370)[address] [place], [place] 7353803-03-2025 12:35-0500Body mass index (BMI) [Ratio]29.83 kg/m2Ye Kirt SCANNER SUPERVISOR-SECURITY ROVER Work Phone: 1(405)5905450[facility]03-03-2025 12:35-0500Body wepghx48.67 kgYe Kirt SCANNER SUPERVISOR-SECURITY [employer]OVER Work Phone: 1(997)[facility]4969[facility]03-03-2025 12:35-0500 Diastolic blood oibsnwbe84 mm[Hg]Christopher Moralez SCANNER SUPERVISOR-SECURITY ROVER Work Phone: 1(226)[facility]69[facility]03-03-2025 12:35-0500Heart rate82 /minYe Kirt SCANNER SUPERVISOR-SECURITY ROVER Work Phone: 1(487)[facility]4969[facility]03-03-2025 12:35-0500Systolic blood dsgbuyov562 mm[Hg]Christopher Moralez SCANNER SUPERVISOR-SECURITY ROVER Work Phone: 1(305)[facility]86[facility]01-30-2025 13:52-0500Body mass index (BMI) [Ratio]28.36 kg/m2Amy Rachelle PA Work Phone: 1(914)[address]01-30-2025 13:52-0500Body kqdqes33.63 kgAmy Rachelle PA Work Phone: 1(306)[address] [place], [place] 8508501-30-2025 13:52-0500Diastolic blood jicrzscb35 mm[Hg]Elayne Bush PA Work Phone: 1(791)[address]01-30-2025 13:52-0500Systolic blood vbfjcghi718 mm[Hg]Elayne Bush PA Work Phone: 1(002)[address] [place], [place] 8508509-26-2024 18:10-0400Diastolic blood qjauujuh37 mm[Hg]Andreas Ortega MD, MPH Work Phone: 1(052)3637184[facility]09-26-2024 18:10-0400Heart rate72 /minAndreas Ortega MD, MPH Work Phone: 1(432)514[facility]82[facility]09-26-2024 18:10-0400Systolic blood sapmekcx114 mm[Hg]Andreas Ortega MD, MPH Work Phone: [facility]09-26-2024 10:24-0400Body owbrfn989.9 cmAurelia Chakraborty SCANNER SUPERVISOR-SECURITY ROVER Work Phone: [facility]09-26-2024 10:24-0400Body mass index (BMI) [Ratio]29.66 kg/f4LiznhkzAurelia Chakraborty SCANNER SUPERVISOR-SECURITY ROVER Work Phone: [facility]09-26-2024 10:24-0400Body .22 kgAurelia Chakraborty SCANNER SUPERVISOR-SECURITY ROVER Work Phone: [facility]09-26-2024 10:24-0400Diastolic blood urrppujb86 mm[Hg]Aurelia Chakraborty SCANNER SUPERVISOR-SECURITY ROVER Work Phone: [facility]09-26-2024 10:24-0400Heart rate 79 /minAurelia Chakraborty SCANNER SUPERVISOR-SECURITY ROVER Work Phone: [facility]09-26-2024 10:24-0400Systolic blood wtdyevxg183 mm[Hg]Aurelia Chakraborty SCANNER SUPERVISOR-SECURITY ROVER Work Phone: [facility]07-22-2024 12:49-0400Diastolic blood djvcxxfu77 mm[Hg]Christopher Moralez SCANNER SUPERVISOR-SECURITY ROVER Work Phone: [facility]07-22-2024 12:49-0400Heart rate58 /minChristopher Moralez SCANNER SUPERVISOR-SECURITY ROVER Work Phone: [facility]07-22-2024 12:49-0400Systolic blood quwcjbtb362 mm[Hg]Christopher Moralez SCANNER SUPERVISOR-SECURITY ROVER Work Phone: [facility]07-22-2024 08:42-0400Blood Pressure LocationCentervillemilla Ruvalcabaminroxana [phone]-ZganaEast [facility] Digestive Pktkoe44-35-0396 08:42-0400Diastolic blood mnrztgyq93 mm[Hg]Diego Ruvalcabamini [phone]-RdaksOur [facility]07-22-2024 08:42-0400Heart rate70 /minMuhammad Sarmini [phone]-QrooeOur [facility] Of Mercy Hospital07-22-2024 08:42-0400Respiratory rate18 /minMuhammad Sarmini [phone]-WhqxpOur Lady Of Mercy Hospital07-22-2024 08:42-0400Systolic blood mm[Hg]Cortez Jordonmini [phone]-MipatOur Lady Of Mercy Hospital06-20-2024 15:06-0400Body quvmij412 cmVinicius Gomes MD, PhD Work Phone: 1(328)[facility]29[facility]06-20-2024 15:06-0400Body mass index (BMI) [Ratio]29.57 kg/m2Vinicius Gomes MD, PhD Work Phone: 1(980)[address] [place], [place] 2795606-20-2024 15:06-0400Body cuedjmwobrb20.9 [degF]Vinicius Gomes MD, PhD Work Phone: 1(513)[address] [place], [place] 2795606-20-2024 15:06-0400Body prnwaw82.03 kgVinicius Gomes MD, PhD Work Phone: 1(276)[facility]29[facility]06-20-2024 15:06-0400 Diastolic blood amqspfpe38 mm[Hg]Vinicius Gomes MD, PhD Work Phone: 1(771)[facility]29[facility]06-20-2024 15:06-0400Heart rate65 /Deborah Gomes MD, PhD Work Phone: 1(031)[facility]29[facility]06-20-2024 15:06-0400 Respiratory rate16 /Deborah Gomes MD, PhD Work Phone: 1(996)[facility]29[facility]06-20-2024 15:06-0518HrB8% (BldA) [Mass fraction]99 %Vinicius Gomes MD, PhD Work Phone: 1(574)[facility]6529[facility]06-20-2024 15:06-0400Systolic blood dpjdtkro215 mm[Hg]Vinicius Gomes MD, PhD Work Phone: 1(293)[facility]6529[facility]05-10-2024 09:32-0400Body .9 cmKathy Johnson SCANNER SUPERVISOR-SECURITY ROVER Work Phone: 1(615)[facility]6255[facility]05-10-2024 09:32-0400Body mass index (BMI) [Ratio]30.61 kg/u0Juxgp Johnson SCANNER SUPERVISOR-SECURITY ROVER Work Phone: 1(856)[address] [place], [place] 1631905-10-2024 09:32-0400Body fxvbab49.48 kgKathy Johnson SCANNER SUPERVISOR-SECURITY ROVER Work Phone: 1(361)[address] [place], [place] [address]05-10-2024 09:32-0400 Diastolic blood olhuwmhv25 mm[Hg]Dolores Johnson SCANNER SUPERVISOR-SECURITY ROVER Work Phone: 1(490)[address] [place], [place] [address]05-10-2024 09:32-0400Heart rate65 /minKathy Johnson SCANNER SUPERVISOR-SECURITY ROVER Work Phone: 1(028)[address] [place], [place] 1631905-10-2024 09:32-0400 Respiratory rate16 /minKathy Johnson SCANNER SUPERVISOR-SECURITY ROVER Work Phone: 1(012)[address] [place], [place] [address]05-10-2024 09:32-1600ViJ4% (BldA) [Mass fraction]98 %Dolores Johnson SCANNER SUPERVISOR-SECURITY ROVER Work Phone: 1(933)[address] [place], [place] [address]05-10-2024 09:32-0400Systolic blood hkbgndqa377 mm[Hg]Dolores Johnson SCANNER SUPERVISOR-SECURITY ROVER Work Phone: 1(022)[address] [place], [place] [address]02-06-2024 10:09-0500Body mass index (BMI) [Ratio]32.44 kg/f5Gfmli Alden DO Work Phone: [facility] HospitalRbsjoxxtqa90-72-4745 10:09-0500Body oustub30.06 kgCorey Alden DO Work Phone: [facility] HospitalAysooldnwf54-36-6388 10:09-0500Diastolic blood mkeevrkj62 mm[Hg]Ron Alden DO Work Phone: [facility] HospitalZzebhhvxmp06-92-7112 10:09-0500Systolic blood euwrqugz584 mm[Hg]Ron Alden DO Work Phone: [facility] HospitalEhthiqtsrt85-84-8231 09:53-0400Body ahrplu627.9 Garrett Vigil SCANNER SUPERVISOR-SECURITY ROVER Work Phone: [facility]05-25-2023 12:07-0400Body inrvtc315.2 Lynne Hugo MD, PhD Work Phone: 1(728)[address] [place], [place] [address]Comment on above:without zbmiq23-93-6813 12:07-0400Body mass index (BMI) [Ratio]30.64 kg/m2Archie Hugo MD, PhD Work Phone: 1(991)[address] [place], [place] 4694005-25-2023 12:07-0400Body diqdotxmzom33.81 [degF]Archie Hugo MD, PhD Work Phone: 1(970)[address] [place], [place] 4694005-25-2023 12:07-0400Body .8 kgArchie Hugo MD, PhD Work Phone: 1(251)[address] [place], [place] [address]Comment on above:without yzbux06-80-8818 12:07-0400Diastolic blood gqthjufq09 mm[Hg]Archie Hugo MD, PhD Work Phone: 1(420)[address] [place], [place] 4694005-25-2023 12:07-0400Heart rate77 /Alisha Hugo MD, PhD Work Phone: 1(317)[address] [place], [place] 4694005-25-2023 12:07-0400 Respiratory rate14 /minArchie Hugo MD, PhD Work Phone: 1(026)[address] [place], [place] 4694005-25-2023 12:07-9067NxO7% (BldA) [Mass fraction]99 %Archie Hugo MD, PhD Work Phone: 1(712)[address] [place], [place] [address]Comment on above:room air 12-10-2022 12:07-0400Systolic blood oqejdgmn088 mm[Hg]Archie Hugo MD, PhD Work Phone: 1(544)[facility]71[facility]04-06-2023 13:57-0400Body sxhful855.9 cmAisabella Suero MD Work Phone: 1(088)[address] [place], [place] 8382504-06-2023 13:57-0400Body mass index (BMI) [Ratio]30.33 kg/q6QxqrpRebekah Suero MD Work Phone: 1(351)[address] [place], [place] 8382504-06-2023 13:57-0400Body rddjbfpvuui16.59 [degF]Rebekah Suero MD Work Phone: 1(669)[address] [place], [place] 8382504-06-2023 13:57-0400Body cmnayw19.8 kgRebekah Suero MD Work Phone: 1(451)[address] [place], [place] 8382504-06-2023 13:57-0400 Diastolic blood oofprvhg28 mm[Hg]Rebekah Suero MD Work Phone: 1(374)[address] [place], [place] 8382504-06-2023 13:57-0400Heart rate62 /Freddie Suero MD Work Phone: 1(274)[address] [place], [place] 8382504-06-2023 13:57-0400 Respiratory rate20 /Freddie Suero MD Work Phone: 1(990)[address] [place], [place] 8382504-06-2023 13:57-0945OhT1% (BldA) [Mass fraction]99 %Rebekah Suero MD Work Phone: 1(294)[address] [place], [place] 8382504-06-2023 13:57-0400Systolic blood mm[Hg]Rebekah Suero MD Work Phone: 1(107)[address] [place], [place] 8382504-06-2023 10:19-0400Body zivwwk518.5 cmYe Kirt SCANNER SUPERVISOR-SECURITY ROVER Work Phone: 1(857)2934969[facility]04-06-2023 10:19-0400Body mass index (BMI) [Ratio]28.66 kg/m2Ye Kirt SCANNER SUPERVISOR-SECURITY ROVER Work Phone: 1(398)[facility]4969[facility]04-06-2023 10:19-0400Body msostr28.1 kgYe Krit SCANNER SUPERVISOR-SECURITY ROVER Work Phone: 1(444)[facility]4969[facility]04-06-2023 10:19-0400 Diastolic blood iinmmgsm55 mm[Hg]Christopher Moralez SCANNER SUPERVISOR-SECURITY ROVER Work Phone: 1(082)[facility]4969[facility]04-06-2023 10:19-0400Systolic blood yhlefqbm909 mm[Hg]Christopher Moralez SCANNER SUPERVISOR-SECURITY ROVER Work Phone: 1(330)[facility]4969[facility]04-06-2023 07:38-0400Body hznidy299.5 cmYe Kirt SCANNER SUPERVISOR-SECURITY ROVER Work Phone: 1(836)2934969[facility]04-06-2023 07:38-0400 Diastolic blood mm[Hg]Christopher Moralez SCANNER SUPERVISOR-SECURITY ROVER Work Phone: 1(131)[facility]4969[facility]04-06-2023 07:38-0400Heart rate73 /minYe Kirt SCANNER SUPERVISOR-SECURITY ROVER Work Phone: 1(154)2934969[facility]04-06-2023 07:38-0400Systolic blood vumtulsh989 mm[Hg]Christopher Moralez SCANNER SUPERVISOR-SECURITY ROVER Work Phone: 1(613)2934969[facility]03-22-2023 11:05-0400Body fjkdyo527.5 cmYe Kirt SCANNER SUPERVISOR-SECURITY ROVER Work Phone: 1(852)2934969[facility]03-22-2023 11:05-0400Body mass index (BMI) [Ratio]28.66 kg/m2Ye Kirt SCANNER SUPERVISOR-SECURITY ROVER Work Phone: 1(056)[facility]4969[facility]03-22-2023 11:05-0400Body snnzqyrofxz56.2 [degF]Christopher Moralez SCANNER SUPERVISOR-SECURITY ROVER Work Phone: 1(924)[facility]69[facility]03-22-2023 11:05-0400Body .08 kgYe Krit SCANNER SUPERVISOR-SECURITY ROVER Work Phone: 1(873)[address] [place], [place] 8092903-22-2023 11:05-0400 Diastolic blood zydaoroc84 mm[Hg]Christopher Kirt SCANNER SUPERVISOR-SECURITY ROVER Work Phone: 1(950)[facility]69[facility]03-22-2023 11:05-0400Heart rate81 /minYe Kirt SCANNER SUPERVISOR-SECURITY ROVER Work Phone: 1(414)[facility]69[facility]03-22-2023 11:05-0400 Respiratory rate16 /minYe Kirt SCANNER SUPERVISOR-SECURITY ROVER Work Phone: 1(824)[address] [place], [place] 8092903-22-2023 11:05-8017GbT2% (BldA) [Mass fraction]99 %Christopher Moralez SCANNER SUPERVISOR-SECURITY ROVER Work Phone: 1(443)[facility]69[facility]03-22-2023 11:05-0400Systolic blood exxasjwl858 mm[Hg]Christopher Kirt SCANNER SUPERVISOR-SECURITY ROVER Work Phone: 1(447)[facility]69[facility]02-01-2023 15:43-0500 Diastolic blood yruasseo58 mm[Hg]Andreas Ortega MD, MPH Work Phone: 1(160)[address] [place], [place] 2154102-01-2023 15:43-0500Systolic blood omizcphj352 mm[Hg]Andreas Ortega MD, MPH Work Phone: 1(852)[address] [place], [place] 2154112-21-2022 07:50-0500Body ygydrc490.5 cmAndreas Ortega MD, MPH Work Phone: 1(517)[address] [place], [place] 2154112-21-2022 07:50-0500Body mass index (BMI) [Ratio]28.73 kg/c7HmcduymAndreas Ortega MD, MPH Work Phone: 1(508)[address] [place], [place] 2154112-21-2022 07:50-0500Body wufkjlvgmrl52.01 [degF]Andreas Ortega MD, MPH Work Phone: 1(383)[address] [place], [place] 2154112-21-2022 07:50-0500Body cefftx45.26 kgAndreas Ortega MD, MPH Work Phone: 1(653)[address] [place], [place] 2154112-21-2022 07:50-0500 Diastolic blood ippskuhe05 mm[Hg]Andreas Ortega MD, MPH Work Phone: 1(234)[address] [place], [place] 2154112-21-2022 07:50-0500Heart rate73 /minAndreas Ortega MD, MPH Work Phone: 1(469)[address] [place], [place] 2154112-21-2022 07:50-0500 Respiratory rate16 /minAndreas Ortega MD, MPH Work Phone: 1(127)[address] [place], [place] 2154112-21-2022 07:50-2033SxU3% (BldA) [Mass fraction]98 %Andreas Ortega MD, MPH Work Phone: 1(545)[address] [place], [place] 2154112-21-2022 07:50-0500Systolic blood mm[Hg]Andreas Ortega MD, MPH Work Phone: 1(969)[address] [place], [place] 2154111-22-2022 13:10-0500Body mass index (BMI) [Ratio]29.3 kg/j0Lrzbg [facility] Work Phone: 1(196)[address] [place], [place] 4694011-22-2022 13:10-0500Body fyktlrtijbk40.6 [degF]Raina [facility] Work Phone: 1(134)[address] [place], [place] 4694011-22-2022 13:10-0500Body vilvks05.67 kgFranciajelly [facility] Work Phone: 1(362)[address] [place], [place] 4694011-22-2022 13:10-0500 Diastolic blood eorlxjpx26 mm[Hg]Raina [place] SCANNER SUPERVISOR-SECURITY ROVER Work Phone: 1(720)[address] [place], [place] 4694011-22-2022 13:10-0500Heart rate80 /minRaina [facility]N-[facility]URITY ROVER Work Phone: 1(557)[address] [place], [place] 4694011-22-2022 13:10-0500 Respiratory rate16 /minKatjelly [facility] HospitalN-SECURITY ROVER Work Phone: 1(038)[address] [place], [place] 4694011-22-2022 13:10-8442ShB5% (BldA) [Mass fraction]98 %Raina [facility] HospitalNSECURITY ROVER Work Phone: 1(067)[address] [place], [place] 4694011-22-2022 13:10-0500Systolic blood pzynwbyi072 mm[Hg]Raina [facility]-SECURITY ROVER Work Phone: 1(692)[address] [place], [place] 4694011-11-2022 07:32-0500Body lhgflyjpdpv99.01 [degF]Archie Hugo MD, PhD Work Phone: 1(705)[address] [place], [place] 4694011-11-2022 07:32-0500 Diastolic blood kmpswoom15 mm[Hg]Archie Hugo MD, PhD Work Phone: 1(482)[address] [place], [place] 4694011-11-2022 07:32-0500Heart rate77 /Alisha Hugo MD, PhD Work Phone: 1(423)[address] [place], [place] 4694011-11-2022 07:32-0500 Respiratory rate16 /Alisha Hugo MD, PhD Work Phone: 1(823)[address] [place] 4694011-11-2022 07:32-3795TiA1% (BldA) [Mass fraction]99 %Archie Hugo MD, PhD Work Phone: [phone] [place], [place] 4694011-11-2022 07:32-0500Systolic blood bknojkji440 mm[Hg]Archie Hugo MD, PhD Work Phone: [phone] [place], [place] 4694011-04-2022 15:50-0400Body mulmkr316.5 Lynne Hugo MD, PhD Work Phone: [phone] [place], [place] 4694011-04-2022 15:50-0400Body mass index (BMI) [Ratio]30.73 kg/m2Archie Hugo MD, PhD Work Phone: 1(299)[address] [place], [place] 4694011-04-2022 15:50-0400Body ypllvg39.2 Jo Ann Hugo MD, PhD Work Phone: 1(325)[address] [place], [place] 4694009-13-2022 12:02-0400 Diastolic blood rrwmvtxy20 mm[Hg]Pending sale to [facility] Work Phone: [phone])[address] [place], [place] 4694009-13-2022 12:02-0400Systolic blood gsjepdqe243 mm[Hg]Pending sale to [facility] Work Phone: 1(235)[address] [place], [place] 4694009-13-2022 11:53-0400Body .5 [facility] Work Phone: 1(115)[address] [place], [place] 4694009-01-2022 15:37-0400Body wxyequ520.3 Lynne Hugo MD, PhD Work Phone: [phone] [place], [place] 4694009-01-2022 15:37-0400Body mass index (BMI) [Ratio]30.63 kg/m2Archie Hugo MD, PhD Work Phone: 1(443)[address] [place], [place] 4694009-01-2022 15:37-0400Body hpzxmrmgiol54.5 [degF]Archie Hugo MD, PhD Work Phone: 1(833)[address] [place], [place] 4694009-01-2022 15:37-0400Body cibafq58.75 Jo Ann Hugo MD, PhD Work Phone: 1([phone])[address] [place], [place] 4694009-01-2022 15:37-0400 Diastolic blood zbpjkmoj81 mm[Hg]Archie Hugo MD, PhD Work Phone: 1(589)[address] [place], [place] 4694009-01-2022 15:37-0400Heart rate90 /Alisha Hugo MD, PhD Work Phone: [facility]09-01-2022 15:37-0400 Respiratory rate16 /Alisha Hugo MD, PhD Work Phone: [phone]09-01-2022 15:37-9752LqD0% (BldA) [Mass fraction]98 %Archie Hugo MD, PhD Work Phone: [phone]09-01-2022 15:37-0400Systolic blood wejrikph155 mm[Hg]Archie Hugo MD, PhD Work Phone: [phone]06-06-2022 18:05-0400Body iblwcb169.4 cmSstacey Lundberg Other [employer] Other 06-06-2022 18:05-0400Body mass index (BMI) [Ratio] 30.62 kg/x3Cptiivdphcara Lundberg Other [employer] Other 06-06-2022 18:05-0400Body kmvsraxzoap08 [degF] Ava Lundberg Other [employer] Other 06-06-2022 18:05-0400Body ikknmh06.12 kgStcara Lundberg Other [employer] Other 06-06-2022 18:05-0400Diastolic blood cdbeoqbp90 mm[Hg] Ava Lundberg Other [employer] Other 06-06-2022 18:05-0400Respiratory rate16 /minSstacey Lundberg Other [employer] Other 06-06-2022 18:05-8321YtG1% (BldA) [Mass fraction]99 % Ava Lundberg Other [facility] [employer] Other [id number] 18:05-0400Systolic blood uoewezkc780 mm[Hg] Ava Lundberg Other [facility] [employer] Other Encounters Encounter DateEncounter TypeCare ProviderFacilityStart: 04-19-2025 End: 10-47-8085rhkyggaywrLqvbdnov Talal SarminiFacility:[facility]ohit-[facility] DHStart: 04-19-2025 End: 87-65-6991Ttdszkl encounter procedureMuhammad Talal Sarmini [phone]-JkcnbEast [facility] Start: 04-04-2025 End: 01-79-2150mdxtwzrhkaQUSFC FAZIONot AvailableStart: 03-21-2025 End: 69-33-3047azyttoojfjJcwkhd Sue Cramer BILLING COORDINATOR-C Work Phone: [facility] Work Phone: Start: 03-21-2025 End: 36-84-7885Wudrnowj ReferredErin Whiteside SECURITY ROVER-LAB Path Spec [place] HospStart: 03-08-2025 End: 39-66-5208ldqrennxsjYkftjmtt Talal SarminiFacility:[facility]it[facility] DHStart: 03-08-2025 End: 74-29-5390Bjqgmgt encounter procedureMuhammad Talal Sarmini [phone]-PimqxEast [facility] Start: 02-07-2025 End: 82-30-0797Uvcsjhsnw encounterGeneva Moncada RNDivision of Medical Oncology Comment on above:Outside Medical Records RequestStart: 02-01-2025 End: 52-82-8908caoiftkfzxFMNCE FAZIONot AvailableStart: 02-01-2025 End: 86-45-7764Ftiwap outpatient visit 15 minutesCorey Alden DO Work Phone: noms BCP OBComment on above:Pre-op examination; Pelvic pain; Pelvic congestion syndromeStart: 02-01-2025 End: 11-04-2179Fjzwakkohgruo examination doneCorey Alden DO Work Phone: noms HealthcareStart: 82-37-9088uouihnxomvBJ ZHOU Facility:[facility]art: 01-22-2025 End: 72-19-6159Ribjzrplsd hospital visit by Milly Moralez SCANNER SUPERVISOR-SECURITY ROVER Work Phone: [facility] CareComment on above: ArrivedStart: 08-21-1135kvlkeqbfhoAM ZHOUFacility:[facility] CONROEtart: 01-22-2025 End: 32-71-7247Ywlvfzjr Support EncounterChristopher Moralez SCANNER SUPERVISOR-SECURITY ROVER Work Phone: Clinical Lab Isrrael Kang 1Comment on above:Primary malignant neuroendocrine tumor of appendixStart: 12-21-2024 End: 06-37-6860Gqekyn consultation new/estab patient 62 Neeta Pleitez MD Work Phone: Rheumatology Outpatient Care HilliardComment on above: 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); HUNTER positive; Rosacea; Interstitial cystitis; Polyarthralgia; Fibromyalgia; Chronic abdominal painStart: 67-18-6861hnibhqptfkFPFUU B FERRIN Facility:[facility]ROEtart: 11-12-5030zsqaoqfmilVHXKJZL TERESA Facility:[facility]ROEtart: 11-21-2024 End: 96-10-5353Gwcqlu outpatient visit 15 minutesCorey Alden DO Work Phone: noms BCP OBComment on above:Pre-op examination; Pelvic congestion syndrome; Pelvic pain in femaleStart: 11-21-2024 End: 76-17-9709Uprkwcqoablnd examination doneCorey Alden DO Work Phone: [facility] HealthcareStart: 11-21-2024 End: 67-14-3983hzcvyoguswUBTIR FAZIONot AvailableStart: 11-13-2024 End: 76-56-5910Qyszdh flowsheetCorey Alden DO Work Phone: [facility] BCP OBStart: 11-13-2024 End: 76-71-2427Nywvuy flowsheetCorey Alden DO Work Phone: [facility] BCP OBStart: 11-13-2024 End: 41-17-0146Vxpvvxud Result EncounterCorey Alden DO Work Phone: [facility] External Department UnsolicitedStart: 11-13-2024 End: 58-07-9434Mqpvit outpatient visit 15 minutesCorey Alden DO Work Phone: [facility] OBComment on above:Pelvic congestion syndrome; Pelvic pain in femaleStart: 11-13-2024 End: 09-76-3264ozritatmqoRAPVN FAZIONot AvailableStart: 11-09-2024 End: 35-30-6361Jfpypj outpatient new [address] MD Work Phone: [facility] Corporationlog[facility] Comment on above:Chronic migraine without aura without status migrainosus, not intractable (Primary Dx)Start: 78-73-1153qosgiumrjdBYKLD B YASIR Facility:[facility]art: 11-09-2024 End: 41-68-4748FucyceAmwsx Chen MD Work Phone: [facility] Comment on above:Chronic migraine without aura without status migrainosus, not intractable (Primary Dx)Start: 11-09-2024 End: 46-59-6228Pgxeowbmu encounterYadira Lane MD Work Phone: [facility] Comment on above:Med Change RequestStart: 11-02-2024 End: 17-84-9234vmvhyrvlhlMzlqhp Sue Cramer BILLING COORDINATORGalinaC Work Phone: [facility] Work Phone: Start: 11-02-2024 End: 56-69-4183Ynetujsz ReferredErin Whiteside BILLING COORDINATORGalinaC Work Phone: [facility]-LAB Path Spec [place] HospStart: 09-28-2024 End: 45-14-7873Hppauoqog encounterAlyvesta May ADivision of Endocrinology Comment on above:AppointmentStart: 93-19-5075dklhquhdzcKU ZHOU Facility:[facility]Etart: 09-18-2024 End: 23-25-3835Abwgtdqi Support EncounterAndreas Ortega MD, MPH Work Phone: Clinical Lab Isrrael Kang 1Comment on above:Low grade mucinous neoplasm of appendix; Primary malignant neuroendocrine tumor of appendixStart: 09-18-2024 End: 45-60-2731Qvusliscme hospital visit by Milly Moralez SCANNER SUPERVISOR-SECURITY ROVER Work Phone: Imaging Lindy Kang Outpatient CareComment on above:ArrivedStart: 21-09-8480desvhrntelLJ ZHOUFacility:[facility] Start: 08-17-2024 End: 10-40-6811Hdjzia flowsheetElayne SIMMONS Work Phone: [facility]oms BCP OBStart: 08-17-2024 End: 90-36-8358Oudayg flowsheetElayne SIMMONS Work Phone: [facility] BCP OBStart: 08-17-2024 End: 50-54-2678Ezyshjttw Result EncounterElayne SIMMONS Work Phone: noms External Department UnsolicitedStart: 08-17-2024 End: 44-20-0912Qnvrveu encounter procedureElayne SIMMONS Work Phone: [facility] Work Phone: Start: 08-17-2024 End: 38-32-6958Fzypfimp preventive med est patient 18-39 yrsElayne SIMMONS Work Phone: noms BCP OBComment on above:Well woman exam with routine gynecological exam; Menorrhagia with regular cycleStart: 08-17-2024 End: 84-04-7120tyxorxtgtxPFA RACHELLEElizabet AvailableStart: 05-15-2024 End: 81-81-3147Wfwritgei encounterAlena Beauchamp CMAProMedica Physicians General SurgeryStart: 05-10-2024 End: 26-47-0478Kkkyle Bro Sr RMAProMedica Physicians General SurgeryComment on above:Colitis; Black stoolsStart: 05-03-2024 End: 91-33-2297bjjbwjcxukYF-C Erin Whiteside Work Phone: [facility] Work Phone: Start: 05-03-2024 End: 87-79-8390Pvpualic ReferredLEFYT-Dayday Whiteside Work Phone: [facility]-LAB Path Spec [place] HospStart: 27-88-1961peazwkgyyqGY ZHOUFacility:[facility]ROEtart: 04-25-2024 End: 38-18-5612Uiumvnypuo hospital visit by Milly Moralez SCANNER SUPERVISOR-SECURITY ROVER Work Phone: [facility] CenterComment on above:Arrived Start: 05-28-6582keierblcmqNAMGURMount Saint Mary's [facility] Start: 37-59-4865pfbupzbylbECUACUE KONDAFacility:[facility] CONROEtart: 04-13-2024 End: 39-67-8346Gbwcdofyai hospital visit by Torito Ortega MD, MPH Work Phone: Imaging and Mammography Outpatient [facility] [place] Comment on above:ArrivedStart: 04-13-2024 End: 10-34-9710Lrhafv outpatient visit 15 minutesAurelia Chakraborty SCANNER SUPERVISOR-SECURITY ROVER Work Phone: ProSum[facility] Campusca Physicians General SurgeryComment on above: Colitis (Primary Dx); Black stools; Diarrhea, unspecified type; Low grade mucinous neoplasm of appendix; Neuroendocrine neoplasm of appendixStart: 04-13-2024 End: 95-37-0867mbbbotnteaUXPJGOQ A [facility]Park[facility] Start: 03-69-3372mywbzsihmlYM ZHOUFacility:[facility] CONROEtart: 04-11-2024 End: 32-77-4947Laafcbivt encounterCarrileonel AndersonungDivision of Medical Oncology Comment on above:Change In SymptomsStart: 04-03-2024 End: 00-14-3049Mpiivtu encounter procedureDONELL Whiteside Work Phone: [facility]-Ultrasound Cntr for Breast CarStart: 04-03-2024 End: 47-14-2175oyfygyoeciAI-C Pamela Sue Cramer Work Phone: [facility] Work Phone: Start: 03-13-2024 End: 20-37-4831Iyanjygbx encounterAndreas Ortega MD, MPH Work Phone: Division of Medical OncologyComment on above:Advice OnlyStart: 02-07-2024 End: 11-83-4631Oabhviyzfq hospital visit by Milly OLEARY Work Phone: Department of RadiologyComment on above:ArrivedStart: 02-07-2024 End: 91-41-4281Zexuhku encounter procedureMuneetu Apodaca [phone]-WtrgjEast [facility] Start: 01-06-2024 End: 83-16-7361Sfmdzz outpatient visit 40 minutesVinicius Gomes MD, PhD Work Phone: Division of Medical OncologyComment on above: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); Diarrhea, unspecified type; Primary malignant neuroendocrine tumor of appendix; Carcinoid syndrome; Tachycardia; SOB (shortness of breath)Start: 12-24-2023 End: 89-88-9878Vqttejzdh Result EncounterElayne SIMMONS Work Phone: NOTE External Department UnsolicitedStart: 12-24-2023 End: 77-27-8763Gblvxlcir Result EncounterElayne SIMMONS Work Phone: noms External Department UnsolicitedStart: 11-26-2023 End: 48-30-9506Uqaehq outpatient new 45 minutesDolores Johnson SCANNER SUPERVISOR-SECURITY ROVER Work Phone: General and Gastrointestinal Surgery Outpatient Care ModeComment on above:Elevated liver enzymes (Primary Dx)Start: 11-06-2023 End: 10-52-8242Ufqytzddha hospital visit by Torito Ortega MD, MPH Work Phone: Imaging Lindy Kang Outpatient CareComment on above:ArrivedStart: 09-21-2023 End: 47-87-4681Vzdcdoeyf Result EncounterCorey Alden DO Work Phone: noms External Department UnsolicitedStart: 09-21-2023 End: 21-89-2358Seursjqyu Result EncounterCorey Alden DO Work Phone: noms External Department UnsolicitedStart: 08-24-2023 End: 05-21-6489Hagcxbni flow sheetCorey Alden DO Work Phone: [facility] BCP OBComment on above:Third trimester Start: 03-11-2023 End: 01-06-8883Hgdxakyt Support EncounterArchie Hugo MD, PhD Work Phone: Clinical Lab Isrrael Kang 1Comment on above:Primary malignant neuroendocrine tumor of appendixStart: 03-11-2023 End: 55-38-8428Glmnglzwdr hospital visit by Rakan Vigil SCANNER SUPERVISOR-SECURITY ROVER Work Phone: Imaging Outpatient Care EastComment on above:Arrived Start: 12-10-2022 End: 47-06-9463Ujznzt outpatient visit 15 Mira Hugo MD, PhD Work Phone: Division of Surgical OncologyComment on above:Primary malignant neuroendocrine tumor of appendix (Primary Dx)Start: 11-30-2022 End: 07-41-6194wteqvburwvJZPJEP CRAMERFacility:G2Ikcmj: 10-22-2022 End: 14-01-3867Wpoghh outpatient new 60 minutesRebekah Suero MD Work Phone: [facility]imod[facility] ClinicComment on above:Fibromyalgia muscle pain (Primary Dx)Start: 10-22-2022 End: 18-01-1109Bddhqxziyd hospital visit by Milly OLEARY Work Phone: Heart and Vascular Outpatient Care ModeStart: 10-22-2022 End: 42-23-1070Bihrnizjtn hospital visit by Milly Moralez APRN-TASH Work Phone: Imaging and Mammography Outpatient Care GahannaComment on above:ArrivedStart: 10-07-2022 End: 38-97-1742Euizlo outpatient visit 25 minutesYe Kirt PALMER-TASH Work Phone: Division of Medical OncologyComment on above:Carcinoid syndrome (Primary Dx); SOB (shortness of breath); Tachycardia; Antinuclear antibody (HUNTER) titer greater than 1:80; Primary malignant neuroendocrine tumor of appendixStart: 10-06-2022 End: 39-66-8727mztganxxjxSZXYLN CRAMERFacility:C9Atsop: 10-02-2022 End: 48-75-0266tduqceatelRREXUU CRAMERFacility:F5Jbihb: 09-30-2022 End: 06-34-9693fhrylwntszUD DOCTOR MISCFacility:Y2Bxlmt: 09-23-2022 End: 21-03-4845tkicliuwqlLIXEBU CRAMERFacility:L1Ddsxk: 09-15-2022 End: 96-98-0828dgbllbanyoWQDYQB CRAMERFacility:O3Dqfum: 09-09-2022 End: 09-10-5995khyaynmizpEK DOCTOR MISCFacility:O0Qkkra: 37-83-1014Cakghkpvn for general adult medical examination without abnormal findingsPAMELA [facility] Main Campustart: 08-31-2022 End: 46-78-5638ycggbatfjsOJSSRU CRAMERFacility:D9Zdjfx: 08-31-2022 End: 25-93-5141Anejbcpkq for general adult medical examination without abnormal findingsPAMELA CRAMERFacility:V0Rfcxz: 08-24-2022 End: 50-09-2321kbuablawdnXE DOCTOR MISCFacility:N4Tsytn: 08-19-2022 End: 81-49-6654Jibtkzlxzi hospital visit by Torito Ortega MD, MPH Work Phone: Department of RadiologyComment on above:ArrivedStart: 08-19-2022 End: 72-40-8284Khberbiktr hospital visit by Milly Moralez SCANNER SUPERVISOR-SECURITY ROVER Work Phone: [facility] CenterComment on above:Arrived Start: 08-12-2022 End: 64-64-0334tlakyrrknzRYVNNS CRAMERFacility:S8Eveyx: 08-05-2022 End: 96-51-2959jeunksmhtnHUWYOA CRAMERFacility:U6Cndkd: 07-08-2022 End: 89-29-8419Dtnfoj consultation new/estab patient 80 Jack Ortega MD, MPH Work Phone: Division of Medical OncologyComment on above:Primary malignant neuroendocrine tumor of appendix (Primary Dx)Start: 06-09-2022 End: 78-05-3447Agwgot follow up visit related to original Julieta Mendoza Eliseo SCANNER SUPERVISOR-SECURITY ROVER Work Phone: Division of Surgical OncologyComment on above:Primary malignant neuroendocrine tumor of appendix (Primary Dx)Start: 06-03-2022 End: 44-86-7656desgspyvscHTYBKS CRAMERFacility:O3Armfw: 06-02-2022 End: 56-88-2927qkmhcsywbnIUOJAL CRAMERFacility:F8Lrgox: 05-22-2022 End: 34-56-1326Stlpampung and management of inpatientAlex Dayday Hugo MD, PhD Work Phone: [phone] on above:Primary malignant neuroendocrine tumor of appendixStart: 04-29-2022 End: 91-67-8591ufyzznfvbeMLWMHN CRAMERFacility:P9Flhqg: 04-08-2022 End: 13-40-3178mwfdojhiekUK TIMMY HALL .Facility:O4Arpec: 04-06-2022 Encounter for preprocedural laboratory examinationDR TIMMY HALL .[facility]: 04-04-2022 End: 32-71-5774tglwcbcjqgISDUBN STEVOFacility:M5Radff: 04-04-2022 End: 22-13-1645Cbgxtqgmd for preprocedural laboratory examinationCH[facility]ST[facility] Facility:S5Oimrt: 03-31-2022 End: 71-57-6285Ecdjtzxhnt hospital visit by Toby Gomes SCANNER SUPERVISOR-SECURITY ROVER Work Phone: Imaging and Mammography Out[facility] [place] Comment on above:ArrivedStart: 03-19-2022 End: 01-63-8465Uiawli outpatient new 60 minutesMarthax Dayday Hugo MD, PhD Work Phone: Division of Surgical OncologyComment on above:Primary malignant neuroendocrine tumor of appendix (Primary Dx)Start: 02-19-2022 Telephone encounterIntestinal Trans Coord Main Work Phone: Transplant CenterComment on above:Referral Request Start: 02-03-2022 End: 20-31-7867fcccrcasjfISNTUJ STEVOFacility:G2Fbibh: 12-22-2021 End: 73-75-4014dkpmoloequAfrktqfzm [place] Other [place] [employer] Other Start: 43-62-4548Aimtrf outpatient visit 15 minutes Ava LundbergFPSarah Urgent Care Jian Procedures DateProcedureProcedure DetailPerforming ClinicianStart: 54-52-8836JQD AND ELECTRONIC DIFFSarah B Yasir SCANNER SUPERVISOR-SECURITY ROVER Work Phone: Start: 50-52-2929Dhvvrigl blood count with white cell differential, automatedSarah B Yasir SCANNER SUPERVISOR-SECURITY ROVER Work Phone: Start: 44-32-5920Vbpnyrfaowpar metabolic panelSarah B Yasir SCANNER SUPERVISOR-SECURITY ROVER Work Phone: Start: 53-47-9194HNPSGDD TRACT INFECTION (HTRX)Ron Ruano DO Work Phone: Start: 82-37-8510FAT AND ELECTRONIC DIFFYe Moralez [facility] Work Phone: Start: 70-12-5155Qgtzeneu blood count with white cell differential, automatedYe Kirt SCANNER SUPERVISOR-[facility] Work Phone: Start: 21-80-9710Yoydximbczxrm metabolic panelYe Kirt [facility] Work Phone: Start: 04-87-8398KOC,APTIMA HPV,AGE GDLNElayne SIMMONS Work Phone: Start: 30-42-9550VAL / COLONOSCOPYJessica A Delfino [facility] HOSPITALwhoplusyouBER[facility]SHIRE [facility] Work Phone: Start: 20-90-8889Amttl i surg pathology gross examination onlyNot In System Ref ProvStart: 85-55-9398Pxl imaging ct attenuation skull base mid-thighYe Moralez [facility] Work Phone: Start: 30-98-5305SqihywuguxfZdkuwuaq Jordonmini Comment on above:04/2024, normal. TBHStart: 04-13-2024 Ct abdomen & pelvis w/o contrst 1/> body Francisca Ortega MD, MPH Work Phone: Start: 68-42-7206Numenvllwdhgjfv of bilateral breasts BILLING COORDINATOR-C Erinnimo Whiteside Work Phone: Start: 12-40-4142Vv soft tissue head & neck real time imge Wilton SIMMONS Work Phone: Start: 79-26-2091MK OB GROWTHCorey Alden DO Work Phone: Start: 07-16-3835Wri abdomen w/o contrast materialYe Kirt [facility] Work Phone: Start: 12-39-0778Qwib tthrc r-t 2d w/wom-mode compl spec&colr dYe Kirt [facility] Work Phone: Start: 11-46-5578Wx soft tissue neck w/contrast materialYe Kirt SCANNER SUPERVISOR-SECURITY ROVER Work Phone: Start: 64-24-4510Ne thorax w/contrast materialYe Moralez SCANNER SUPERVISOR-SECURITY ROVER Work Phone: Start: 98-54-5131Rluzficrlbh peptideYe Moralez SCANNER SUPERVISOR-SECURITY ROVER Work Phone: Start: 22-09-0377Rnlldjjzxp bloodAndreas Ortega MD, MPH Work Phone: Start: 65-00-2263Nyv imaging ct attenuation skull base mid-thighYe Moralez SCANNER SUPERVISOR-SECURITY ROVER Work Phone: Start: 05-44-7313Jhrmf of Brenda Arnold MD Work Phone: Start: 02-16-6674Gaczb of Brenda Arnold MD Work Phone: Start: 39-06-6013Hhrtx of Brenda Arnold MD Work Phone: Start: 93-54-2018Pteeajo resection of small bowel using robotic assistanceDiego Apodaca Start: 47-78-3744Oavmj colectomyDiego Apodaca Start: 67-30-9601Ldauw of Brenda Arnold MD Work Phone: Start: 74-93-8521Tvvkq of Brenda Arnold MD Work Phone: Start: 93-79-4362Jjxbl of Brenda Arnold MD Work Phone: Start: 33-51-8994Wbxtm of Brenda Arnold MD Work Phone: Start: 21-24-1059Kcipyryibo exam abdomen 1 Seb Hong MD Work Phone: Start: 94-22-2231BNPWLAOVQB CARDIAC MONITORING STRIP Other OtherStart: 34-51-5230Pdkiqlbrj directApejessica Arnold MD Work Phone: Start: 98-15-9536Wgfxuob ionizedArchie Hugo MD, PhD Work Phone: Start: 35-47-9279XCMXPIYTMS CARDIAC MONITORING STRIP Other OtherStart: 84-97-6989Xxiiljca Phoebe Hugo MD, PhD Work Phone: Start: 07-31-8524Nbvlxqw ionizedAlemanpreet Hugo MD, PhD Work Phone: Start: 05-22-2022 End: 56-03-6006Otklwhkij partial w/anastomosisArchie Hugo MD, PhD Work Phone: Start: 05-22-2022 End: 44-94-8054Wrsmevxlbecc intracavitary probesArchie Hugo MD, PhD Work Phone: Start: 05-22-2022 End: 75-20-2464Ughczkngh recrt mal w/omentectomy pel lmphadecAlex Dayday Hugo MD, PhD Work Phone: Start: 23-31-2433Brxls typing serologic aboGenenallely Cisneros PA-C Work Phone: Start: 82-09-1201BOAYFBD TO TRANSFUSE OR RED BLOOD CELLSGenenallely Cisneros PA-C Work Phone: Start: 43-04-8647Wrvqlombypdd chorionic qualitative Archie Hugo MD, PhD Work Phone: Start: 62-95-7386Dx thorax w/contrast materialKatie N [place] SCANNER SUPERVISOR-SECURITY ROVER Work Phone: Start: 16-36-7366XUK AND ELECTRONIC DIFFKatie N [facility] Work Phone: Start: 96-57-8664Lqimmwjm blood count with white cell differential, automatedKatie [facility] Work Phone: Start: 41-05-3064Nhvqbgizlvbfh metabolic panelKatie N [place] SCANNER SUPERVISOR-SECURITY ROVER Work Phone: Start: 63-31-5242Bgtkx depression screening assessment Aurelia Chakraborty SCANNER SUPERVISOR-SECURITY ROVER Work Phone: Start: 39-86-0710Qfilfbipozbc appendectomyMuhammad Jordonmini Cesarean sectionMuhammad Sarmini CholecystectomyMuhammad Sarmini Plan of Treatment DateCare ActivityDetailAuthorStart: 86-92-7750Jwpxrbc ScreeningTobacco Screening [facility]tart: 50-70-8898Ysjod BMI ScreeningAdult BMI Screening [facility]tart: 36-67-1517Lhwlhat ScreeningTobacco Screening [facility] Hospitaltart: 43-75-1072Sjtot cultureMercy Hospitaltart: 30-95-4813Uryhxywz identified in Urine by CultureUrine Culture [facility]cy Hospitaltart: 32-99-4416Qhsfnhuwr vaccinationOSU Riverview Health Institutetart: 03-08-2025 End: 04-04-5803Idrcmur encounter tihviocgo06/21/2025 9:30 AM EDT Office Visit [facility] [address] [place] [phone] Elayne Bush PA [address] [place] [address] [facility] BCP OBStart: 01-29-2025 End: 14-29-1886Whdnhpq encounter qknelornb11/14/2025 12:00 PM EDT Office Visit Division of Medical Oncology [address] [facility] [facility] [address] [place] [address] Christopher Moralez SCANNER SUPERVISOR-SECURITY ROVER [address] [place] [address] Division of Medical OncologyStart: 01-22-2025 End: 60-61-8461Kjeydar encounter pcyqbgszr89/07/2025 10:45 AM EDT Appointment Imaging at [facility] [address] [facility] [place] [address] Christopher Moralez, SCANNER SUPERVISOR-SECURITY ROVER [address] [place], [place] [id number] [facility]Start: 01-22-2025 End: 20-88-7798Xhtyvbhj Support Fxlrucvhm56/07/2025 9:30 AM EDT Clinical Support Encounter Clinical Lab Isrrael [place] [address] [place] [address] [facility] [place] [id number] Christopher Moralez, SCANNER SUPERVISOR-SECURITY [employer]OVER [address] [place], [place] [id number] Clinical Lab Isrrael [place] 1Start: 01-11-2025 End: 90-71-0539Rkwngak encounter dbxlpwpmy09/26/2025 2:40 PM EDT Office Visit Division of Medical Oncology [address] [place] [place] [address] [place], [place] [phone] Vinicius Gomes MD, PhD [address] [facility] [address] [place] [phone] Division of Medical Oncology Start: 12-21-2024 End: [id number]d Clinic Marymount HospitalComment on above:Expected: 12/21/2024, Expires: 12/21/2025Start: 12-21-2024 End: 26-71-1991MZ Cervical spine 4 ViewsXR SPINE CERVICAL 4-5 VIEWS Imaging Routine HUNTER positive Expected: 12/21/2024, Expires: 12/21/2025[facility] HospitalComment on above:Expected: 12/21/2024, Expires: 12/21/2025Start: 12-21-2024 End: 26-17-0231JR Wrist - left ViewsXR WRIST LEFT Imaging Routine HUNTER positive Expected: 12/21/2024, Expires: 12/21/2025[facility] CenterComment on above:Expected: 12/21/2024, Expires: 12/21/2025Start: 12-21-2024 End: 36-56-9889Cwonrfv encounter procedureRheumatology Outpatient Care Ola Start: 11-21-2024 End: 39-62-3827Yycblog encounter ufqdlfitj28/06/2025 11:30 AM EDT Consult [facility] [address] [place] [address] Ron Ruano, DO [address] [place] [address] [facility] BCP OBStart: 11-13-2024 End: 15-01-2820Xcpgqcv encounter xcectrpzv98/28/2025 10:30 AM EDT Office Visit [facility] [address] [place] [phone] Ron Ruano, DO [address] [place] [address] ArrivedNOMS [facility] OBComment on above:ArrivedStart: 11-09-2024 End: 64-37-1421Dwujluq encounter tyinwiirb70/24/2025 3:15 PM EDT Office Visit Neurological Specialty [facility] Spine [facility] [address]th [place] [address] MD [address] [place] [address] [facility]: 38-55-2620Njsjyocm identified in Urine by CultureUrine [facility] Hospitalt[facility]: 11-02-2024 Urine cultureMercy Hospitaltart: 09-28-2024 End: 58-38-2335Vvzrgjk encounter procedureDivision of Medical OncologyStart: 09-12-2024 End: 39-49-3183Ouodbte encounter filtgebwl19/25/2025 2:20 PM EST Office Visit [facility] [address] [place] [phone] Ron Ruano, DO [address] [facility] [place] [address] [facility] OBStart: 09-04-2024 End: 13-44-9826Vmleuyfnqdnt / ancillary services kdjjpyiozr69/17/2025 2:30 PM EST Ancillary Procedure [facility] OB [address] [facility] [place] [phone] [facility] OBStart: 08-17-2024 End: 06-31-1490vWBY in Blood by Coagulation assayAPTT Lab Routine Menorrhagia with regular cycle Expected: 08/17/2024 (Approximate), Expires: 08/17/2025[facility] HealthcareComment on above:Expected: 08/17/2024 (Approximate), Expires: 08/17/2025Start: 08-17-2024 End: 80-31-6605Zguawsr encounter uhnlouvlg02/30/2025 2:00 PM EST Office Visit [facility] OB [address] [facility] [place] [phone] Elayne Bush PA [address] [facility] [address] [place], [place] [phone] ArrivedN[facility] OBComment on above:ArrivedStart: 08-17-2024 End: 68-72-4361FW PelvisUS Pelvis w/ TV Imaging Routine Menorrhagia with regular cycle Expected: 08/17/2024 (Approximate), Expires: 08/17/2025[facility] Comment on above:Expected: 08/17/2024 (Approximate), Expires: 08/17/2025Start: 06-06-2024 End: 85-81-7200Zsswvbw encounter procedureDivision of Medical OncologyStart: 05-23-2024 End: 15-66-0819Onoyipqc Support EncounterClinical Lab Isrrael Pearl 1Start: 04-25-2024 End: 30-66-8159Jbpocwh encounter qhgpvsmyk71/08/2024 9:00 AM EDT Appointment Imaging [facility] [address] [place] [phone] Christopher Moralez APRN-SECURITY ROVER [address] [place], [place] [phone] Imaging [facility]: 92-55-6555Zmbmtdltvv hospital visit by zbweelksr56/26/2024 7:00 PM EDT Hospital Encounter Imaging and Mammography Outpatient [facility] [place] [address] [place] [address] Andreas Ortega MD, MPH [address] [facility] [place] 10th [place] [address] Imaging and Mammography [facility] Veg[facility]art: 04-12-2024 End: 40-24-7281Qwmcgzi encounter coermjkgt55/25/2024 9:30 AM EDT Appointment Imaging [facility] [address] [place] [phone] Christopher Moralez APRN-SECURITY ROVER [address] [place], [place] [phone] Imaging [facility]: 04-11-2024 End: 32-97-7418QZ Abdomen and Pelvis WO and W contrast IVCT ABDOMEN/PELVIS WITH AND WITHOUT CONTRAST Imaging STAT Primary malignant neuroendocrine tumor of a ppendix Expected: 04/11/2024, Expires: 04/11/2025[facility] Comment on above:Expected: 04/11/2024, Expires: 04/11/2025Start: 03-19-2024 COVID-19 Vaccine ( season)COVID-19 Vaccine ( season) [facility] CenterCheckiO SystemStart: 83-80-7335Smxvbvmql vaccinationSt. Mary's Medical [facility], [facility] Campustart: 03-02-2024 End: 96-57-5564Ucsvjbmrmkre consultation with jndukco3203/02/2024 9:00 AM EDT Telemedicine General and Gastrointestinal Surgery Outpatient Care [place] [address] [facility] [address] [place] [address] Dolores Johnson, SCANNER SUPERVISOR-SECURITY ROVER [address] [place] [address] General and Gastrointestinal Surgery [facility] Springsart: 02-10-2024 End: 39-67-4724Zxynkbs encounter xwuypprjx35/25/2024 11:00 AM EDT Office Visit Division of Medical Oncology [address] [place] [address] [place] [address] Andreas Ortega MD, MPH [address] [place] [address] [place] [address] Division of Medical OncologyStart: 01-28-2024 End: 19-12-9050Blidbjr encounter mlnuwilsy94/12/2024 11:30 AM EDT Appointment Imaging [facility] Outpatient Care [address] [place] [phone] Christopher Moralez SCANNER SUPERVISOR-SECURITY ROVER [address] [place] [address] Imaging [facility] CenterStart: 01-28-2024 End: 12-33-7050Xadeqhks Support Qkisbnlmf24/12/2024 10:15 AM EDT Clinical Support Encounter Clinical Lab Isrrael Pearl 1 [address] [place] [address] [place] [address] Andreas Ortega MD, MPH [address] [place] [address] [place] [address] Clinical Lab Isrrael Otis 1Start: 01-06-2024 End: 49-81-8151Blwnctc encounter eyvugixyc01/20/2024 3:00 PM EDT Office Visit Division of Medical Oncology [address] [place] [address] [place] [address] Vinicius Gomes MD, PhD [address] [place] [address] [place] [address] Division of Medical Oncology Start: 12-14-2023 End: 07-28-9210Tzfsgbx encounter qowgavokf39/28/2024 12:30 PM EDT Office Visit Cardiology Isrrael [facility] [address] [place] [address] Fletcher Coelho MD [address] [place] [address] Cardiology Isrrael [facility] 5Start: 11-26-2023 End: 61-27-4313ICJLL-1-ANTITRYPSIN PHENOTYPECleveland Clinic Marymount HospitalComment on above:Expected: 11/26/2023 (Approximate), Expires: 11/25/2024Start: 11-26-2023 End: 60-16-6044NVP SCREEN IFACleveland Clinic Marymount HospitalComment on above:Expected: 11/26/2023 (Approximate), Expires: 11/25/2024Start: 11-26-2023 End: 11-02-1617OERB MITOCHONDRIAL ANTIBODYCleveland Clinic Marymount HospitalComment on above:Expected: 11/26/2023 (Approximate), Expires: 11/25/2024Start: 11-26-2023 End: 27-55-9658RCZG SMOOTH MUSCLE ANTIBODYCleveland Clinic Marymount HospitalComment on above:Expected: 11/26/2023 (Approximate), Expires: 11/25/2024Start: 11-26-2023 End: 68-79-1389DNJAZDMKNF PROT IMMUNO, SERUMCleveland Clinic Marymount HospitalComment on above:Expected: 11/26/2023 (Approximate), Expires: 11/25/2024Start: 11-26-2023 End: 36-92-9268M-TRANSGLUTAMINASE IGG/IGA, ABOSU [facility] Health CenterComment on above:Expected: 11/26/2023, Expires: 11/25/2024Start: 11-08-2023 End: 31-84-6455Jcvtekgtevpo consultation with dlanxvn5811/08/2023 11:00 AM EDT Telemedicine Division of Medical Oncology [address] [place] 10th Floor [facility], [phone] Christopher Moralez, SCANNER SUPERVISOR-SECURITY ROVER [address] [place] [address] Division of Medical Oncology Start: 10-28-2023 End: 03-50-1432Pgobkcq encounter dijfejibu69/11/2024 1:00 PM EDT Office Visit General and Gastrointestinal Surgery Outpatient Care [facility] [place] [address] Nawaf Cabrera Jr., MD [address] [place] [phone] General and Gastrointestinal Surgery Outpatient Care ModeStart: 09-08-2023 End: 38-13-5327Urwmcey encounter gcyaxpnbc06/21/2024 10:40 AM EST Routine [facility] OB [address] [place] [address] Ron Ruano, DO [address] [address] [facility] BCP OBStart: 06-17-2023 End: 44-78-3011Kxngtkw encounter dipexquga24/30/2023 1:30 PM EST Office Visit Division of Surgical Oncology [address] [place] 8th Floor [place] [phone] Archie Hugo MD, PhD [address] [place] [phone] Division of Surgical OncologyStart: 06-17-2023 End: 28-73-2296Yktahjv encounter /30/2023 12:20 PM EST Appointment Imaging [facility] [address] [place] [address] Archie Hugo MD, PhD [address] [place] [phone] Imaging [facility] Outpatient CareStart: 81-43-1808Jttctzmjo [facility] Medical Centertart: 03-17-2023 End: 17-14-6634Qfwbpbq encounter procedureDivision of Medical OncologyStart: 03-11-2023 End: 73-42-7097Ipldwqt encounter fzeefpuvz23/24/2023 Office Visit Surgical Oncology Archie Hugo MD, PhD [address] [place] [address] Division of Surgical OncologyStart: 03-11-2023 End: 23-66-0351Xyruxws encounter procedureImaging Outpatient Care EastStart: 97-85-8556Seegaiczel ScreeningDepression ScreeningFormerly [facility] Hospitaltart: 12-22-2022 End: 81-43-7862Ixaknic encounter /06/2023 Office Visit Cardiovascular Medicine Marisela Velásquez, SCANNER SUPERVISOR-SECURITY ROVER [address] [place] [phone] Cardiology [facility] 5Start: 12-17-2022 End: 83-98-7764Muyxskq encounter uqolrgvei25/01/2023 Office Visit Oncology Andreas Ortega MD, MPH [address] [place] [address]th [place] [address] Division of Medical OncologyStart: 12-10-2022 End: 51-82-2451ZH Abdomen and Pelvis W contrast IVCT ABDOMEN/PELVIS WITH CONTRAST Imaging Routine Primary malignant neuroendocrine tumor of appendix E xpected: 12/10/2022, Expires: 12/11/2023[facility] HospitalComment on above:Expected: 12/10/2022, Expires: 12/11/2023Start: 12-10-2022 End: 16-69-8949XB Chest W contrast IVCT CHEST WITH CONTRAST Imaging Routine Primary malignant neuroendocrine tumor of appendix Expected:12/10/2022, Expires: 12/11/2023[facility] CenterComment on above:Expected: 12/10/2022, Expires: 12/11/2023Start: 12-10-2022 End: 58-26-7586Psmhnop encounter procedureImaging [facility] Outpatient CareStart: 12-07-2022 End: 05-91-6432ZU Abdomen and Pelvis W contrast IVCT ABDOMEN/PELVIS WITH CONTRAST Imaging Routine Primary malignant neuroendocrine tumor of appendix E xpected: 12/07/2022, Expires: 06/09/2023[facility] CenterComment on above:Expected: 12/07/2022, Expires: 06/09/2023Start: 11-05-2022 End: 53-58-9056Cjnhktu encounter gwcgughlm27/20/2023 Office Visit Oncology Andreas Ortega MD, MPH [address] [facility] [address] [place] [address] Division of Medical OncologyStart: 10-27-2022 End: 90-04-7840Kqxiftn encounter fowfmvntz50/11/2023 Office Visit Cardiovascular Medicine Fletcher Coelho MD [address] [place] [address] Cardiology [facility] 5Start: 10-27-2022 End: 76-17-6288dimtavsasp09/11/2023 Telemed Clin Support Genetics Erin Stoner, [facility] [address] [facility] [address] [place], [place] Division of Human GeneticsStart: 95-68-8613Bonexuerur hospital visit by cbcbygvhr85/05/2023 Hospital Encounter Computerized Tomography Scan Christopher Moralez APRN-CNP [address] [place], [place] [phone] Imaging Outpatient Care [facility]: 10-21-2022 End: 94-85-0529Igfcscb encounter dgpdxnhec74/05/2023 Appointment Echocardiography Christopher Moralez APRN-CNP [address] [place] [address] Heart and Vascular Outpatient Care Mode Start: 10-07-2022 End: 62-57-7834VG Chest W contrast IVCT CHEST WITH CONTRAST Imaging Routine Carcinoid syndrome SOB (shortness of breath) Tachycardia Primary malignant neuroendocrine tumor of appendix Expected: 10/07/2022, Expires: 10/08/2023[facility] CenterComment on above:Expected: 10/07/2022, Expires: 10/08/2023 Start: 10-07-2022 End: 12-03-9599BD Neck W contrast IVCT NECK WITH CONTRAST Imaging Routine Primary malignant neuroendocrine tumor of appendix Expected: 10/07/2022, Expires: 10/08/2023OSSamaritan North Health CenterComment on above:Expected: 10/07/2022, Expires: 10/08/2023Start: 08-26-2022 End: 60-48-4596Ocxlhacmfmft consultation with haqhoza8108/26/2022 Telemedicine Oncology Andreas Ortega MD, MPH [address] [facility] [address] [place] [address] Division of Medical Oncology Start: 08-19-2022 End: 95-13-7398Nkpbphu encounter procedureQuail Creek Surgical Hospitaltart: 07-08-2022 End: 71-73-0046Imomxbwb blood count with white cell differential, automatedCBC, EDIF, PLATELET Lab Routine Primary malignant neuroendocrine tumor of appendix Expected: 07/08/2022, Expires: 07/08/2023OSSamaritan North Health CenterComment on above:Expected: 07/08/2022, Expires: 07/08/2023Start: 07-08-2022 End: 02-99-1686Nnphvdobeezwu metabolic 2000 panel - Serum or PlasmaCOMPREHENSIVE METABOLIC PANEL Lab Routine Primary malignant neuroendocrine tumor of appendix Expected: 07/08/2022, Expires: 07/08/2023OSSamaritan North Health CenterComment on above:Expected: 07/08/2022, Expires: 07/08/2023Start: 07-08-2022 End: 57-06-6428YI Abdomen and Pelvis WO and W contrast IVCT ABDOMEN/PELVIS WITH AND WITHOUT CONTRAST Imaging Routine Primary malignant neuroendocrine tumor of appendix Expected: 07/08/2022, Expires: 07/08/2023[facility] Comment on above:Expected: 07/08/2022, Expires: 07/08/2023Start: 07-08-2022 End: 79-60-3837Iohfyvt dehydrogenase [Enzymatic activity/volume] in Serum or PlasmaLACTATE DEHYDROGENASE Lab Routine Primary malignant neuroendocrine tumor of appendix Expected: 07/08/2022, Expires: 07/08/2023[facility] Comment on above:Expected: 07/08/2022, Expires: 07/08/2023Start: 07-08-2022 End: 36-04-8639UL Skull base to mid-thighNUC PET NEUROENDOCRINE Imaging Routine Primary malignant neuroendocrine tumor of appendix Expected:07/08/2022, Expires: 07/08/2023[facility] HospitalComment on above:Expected: 07/08/2022, Expires: 07/08/2023Start: 07-08-2022 End: 33-65-1645Kipvftf encounter pxuqmsxgb50/21/2022 Office Visit Oncology Andreas Ortega MD, MPH [address] [place] [address] [place] [address] Division of Medical OncologyStart: 07-06-2022 End: 20-74-6216Czembxjierst consultation with qphmghi8907/06/2022 Telemedicine Surgical Oncology Raina Gomes APRN-SECURITY ROVER [address] 8[address] [place] [address] [facility]: 06-09-2022 End: 58-88-4085Ijfgmlf encounter dmkxdabgn01/22/2022 Office Visit Surgical Oncology Raina Gomes APRN-SECURITY ROVER [address] [place] [address] Division of Surgical OncologyStart: 04-21-2022 End: 19-40-0928Fclotlrgwe and management of xdmcyxfyh45/04/2022 Surgery Multispecialty Archie Hugo MD, PhD [address] [place] [address] COLECTOMY PARTIAL LAPAROSCOPICCCCT PERIOP Comment on above:COLECTOMY PARTIAL LAPAROSCOPICStart: 04-21-2022 End: 52-35-6924Sxdzbqcmkyj colectomy partial w/anastomosisCOLECTOMY PARTIAL LAPAROSCOPIC Primary malignant neuroendocrine tumor of appendix 04/21/2022 7:15 AM EDTOSU [facility] MAIN ORStart: 55-04-8219Ihieexthpj and management of inpatient 04/21/2022 Hospital Encounter Multispecialty Archie Hugo MD, PhD [address] [place] [address] Primary malignant neuroendocrine tumor of appendixCCCT PERIOPComment on above:Primary malignant neuroendocrine tumor of appendixStart: 03-19-2022 End: 66-38-1559Iksxmwuwvwh flx dx w/collj spec when pfrmdDIAGNOSTIC COLONOSCOPY GI/Bronch STAT Primary malignant neuroendocrine tumor of appendix Expected: 0 03/19/2022, Expires: 03/19/2023[facility] HospitalComment on above: Expected: 03/19/2022, Expires: 03/19/2023Start: 04-83-7308Anuhvwusi vaccination INFLUENZA VACCINE (#1)OSRiverside Methodist Hospitaltart: 03-19-2022 End: 94-52-9119BGSL AND SCREEN - PREADMISSIONTYPE AND SCREEN - PREADMISSION Blood Bank Routine Primary malignant neuroendocrine tumor of appendix Expected: 03/19/2022, Expires: 03/19/2023[facility] Work Phone: Comment on above:Expected: 03/19/2022, Expires: 03/19/2023Start: 65-63-4424OOYES-19 VACCINE (2 - Pfizer risk series)COVID-19 VACCINE (2 - Pfizer risk series)OSRiverside Methodist Hospitaltart: 75-65-8165UVJIM- 19 VACCINE (2 - Pfizer series)COVID-19 VACCINE (2 - Pfizer series)OSRiverside Methodist Hospitaltart: 40-21-3935AVcX,Tdap and Td Vaccines (6 - Td or Tdap) DTaP,Tdap and Td Vaccines (6 - Td or Tdap)[facility] SystemStart: 46-87-4102Qfkpbhk vaccinationTETANUSSt. Mary's Medical Center, [place] Campustart: 2018 Screening for malignant neoplasm of cervixOSRiverside Methodist Hospitaltart: 00-64-1039MZEICCXHLNHB VACCINE SERIES (1 of 2 - PCV)PNEUMOCOCCAL VACCINE SERIES (1 of 2 - PCV)OSRiverside Methodist Hospitaltart: 45-03-0013Ixacx diphtheria, tetanus and acellular pertussis (DTaP) vaccinationTDAP (ADULT)OSRiverside Methodist Hospitaltart: 72-99-8599Konlbf vaccine hzv live for subcutaneous useZOSTER (SHINGLES) VACCINE (1 of 2)OSRiverside Methodist Hospitaltart: 72-00-6661Cunrv BMI Follow Up PlanAdult BMI Follow Up PlanSt. Elizabeth Hospital SystemStart: 2015 Tetanus vaccinationTETANUSSt. Mary's Medical Center, [place] Campustart: 17-72-2314Frzbmrrum for Chlamydia trachomatisCHLAMYDIA SCREENOSRiverside Methodist Hospitaltart: 76-08-2155YAT screeningHIV SCREENING DISCUSSIONOSRiverside Methodist Hospitaltart: 44-16-0188Ivxjqzlzqdu for human papillomavirusHPV VACCINE ADOL (2 - 2-dose series)[facility] Campustart: 63-89-6679UPI VACCINE (2 - Risk 3-dose series)HPV VACCINE (2 - Risk 3-dose series)[facility] Campustart: 41-59-4436Uftpztvzxut for human papillomavirusHPV VACCINE ADOL (2 - Risk 3-dose series)[facility] Campustart: 36-75-3710Knuhinxoxol for human papillomavirusHPV VACCINE ADOL (1 - 2-dose series)[facility] Start: 92-03-9203BLKESMRMTMFT VACCINE SERIES (1 - PCV)PNEUMOCOCCAL VACCINE SERIES (1 - PCV)[facility] Campustart: 04-11-5803CEMEXOTHICCO VACCINE SERIES (1 of 2 - PCV)PNEUMOCOCCAL VACCINE SERIES (1 of 2 - PCV)[facility] Campustart: 27-17-0787KXIVKEUXW SCREENGONORRHEA SCREENOSRiverside Methodist Hospitaltart: 31-18-5944Jwbigoaeb C antibody, confirmatory testHEPATITIS C VIRUS SCREENINGOSRiverside Methodist Hospitaltart: 37-48-3336Hlkcfndlw C screening HEPATITIS C VIRUS SCREENINGOSRiverside Methodist Hospitaltart: 05-23-1856Hbwlctjbp for Chlamydia trachomatisGONORRHEA SCREENCleveland Clinic Marymount HospitalBacteria identified in Urine by CultureUrine culture Microbiology Routine Pelvic pain in female Ordered: 11/13/2024[facility] Work Phone: comment on above:Ordered: 11/13/2024BC W Auto Differential panel - BloodCBC and differential Lab Routine Menorrhagia with regular cycle Ordered: 08/17/2024[facility] HealthcareComment on above:Ordered: 08/17/2024HROMOGRANIN ACHROMOGRANIN A Lab Routine Primary malignant neuroendocrine tumor of appendix 03/11/2023 11:44 AM [facility] Work Phone: CHROMOGRANIN ACHROMOGRANIN A Lab Routine Low grade mucinous neoplasm of appendix Primary malignant neuroendocrinetumor of appendix 09/18/2024 12:20 PM [facility] ACHROMOGRANIN A Lab Routine Primary malignant neuroendocrine tumor of appendix 01/22/2025 9:41 AM [facility] Work Phone: End: 40-07-4246WL Abdomen and Pelvis W contrast [facility] Work Phone: Comment on above:1 Occurrences starting 03/31/2022 until 03/31/2022 End: 49-75-9386MV Abdomen and Pelvis WO and W contrast IVCleveland Clinic Marymount Hospital Work Phone: Comment on above:1 Occurrences starting 08/14/2022 until 08/14/2022 End: 66-37-4190RB Abdomen and Pelvis WO and W contrast IVCleveland Clinic Marymount HospitalComment on above:1 Occurrences starting 11/06/2023 until 11/06/2023 End: 52-22-7831QS Abdomen and Pelvis WO and W contrast IVOSU [facility] General Health CenterComment on above:1 Occurrences starting 02/07/2024 until 02/07/2024 End: 38-09-9429AS Abdomen and Pelvis WO and W contrast IVCleveland Clinic Marymount HospitalComment on above:1 Occurrences starting 09/18/2024 until 09/18/2024 End: 12-94-7359HZ Abdomen and Pelvis WO and W contrast IVCleveland Clinic Marymount HospitalComment on above:1 Occurrences starting 01/22/2025 until 01/22/2025 Cytology Cervical or vaginal smear or scraping studyPap Smear Pathology and Cytology Routine Well woman exam with routine gynecological exam Ordered: [facility] Work Phone: comment on above:Ordered: 08/17/2024Ecg routine ecg w/least 12 lds trcg only w/o i&rPR ECG, TRACING ONLY [place] - OFFICE PERFORMED Routine Primary malignant neuroendocrine tumor of appendix Ordered: 03/19/2022 [facility] HospitalComment on above:Ordered: 03/19/2022Echocardiography ECHOCARDIOGRAM Echocardiography Routine Carcinoid syndrome SOB (shortness of breath) Tachycardia Ordered: 10/07/2022[facility] HospitalComment on above:Ordered: 10/07/2022 End: 00-05-7751GWJ / ColonoscopyEGD / Colonoscopy GI Routine Colitis Black stools 1 Occurrences starting 04/13/2024 until 04/13/2025[facility] Work Phone: Comment on above:1 Occurrences starting 04/13/2024 until 04/13/2025hCG, quantitative, pregnancyhCG, quantitative, Lab Routine Menorrhagia with regular cycle Ordered: 08/17/2024[facility] HealthcareComment on above:Ordered: 08/17/2024Hemoglobin A1c/Hemoglobin.total in BloodHemoglobin A1c Lab Routine Menorrhagia with regular cycle Ordered: 08/17/2024[facility] HealthcareComment on above:Ordered: 08/17/2024Laparoscopy colectomy partial w/anastomosisCOLECTOMY PARTIAL LAPAROSCOPIC Primary malignant neuroendocrine tumor of appendixOSU [facility] End: 96-65-9600Ccuorwkf resonance imaging of abdomen and pelvis with contrastMRI ABDOMEN/PELVIS WITHOUT AND WITH CONTRAST Imaging Routine Primary malignant neuroendocrine tumorof appendix 1 Occurrences starting 03/09/2023 until 03/09/2023[facility] HospitalComment on above:1 Occurrences starting 03/09/2023 until 03/09/2023rothrombin time (PT) in Blood by Coagulation assay Protime-INR Lab Routine Menorrhagia with regular cycle Ordered: 08/17/2024[facility] HealthcareComment on above:Ordered: 08/17/2024Removal of staplesPR STAPLE REMOVAL [place] - OFFICE PERFORMED Routine Primary malignant neuroendocrine tumor of appendix Ordered: 06/09/2022[facility] HospitalComment on above:Ordered: 06/09/2022URG PATH REQUESTOSSamaritan North Health CenterComment on above:Release Upon Ordering for 1 Occurrences starting 05/22/2022, 1 completedThyrotropin [Units/volume] in Serum or PlasmaTSH Lab Routine Menorrhagia with regular cycle Ordered: 08/17/2024[facility] HealthcareComment on above:Ordered: 08/17/2024Thyroxine (T4) free [Mass/volume] in Serum or PlasmaT4, free Lab Routine Menorrhagia with regular cycle Ordered: 08/17/2024[facility] HospitalComment on above:Ordered: 08/17/2024TRANSIENT ELASTOGRAPHYTRANSIENT ELASTOGRAPHY GI/Bronch Routine Elevated liver enzymes Ordered: 11/26/2023[facility] HospitalComment on above:Ordered: 11/26/2023 Immunizations Immunization DateImmunizationNotesCare SzdgjijpTeelnuwx75-07-3865VHSS-CiW-5 (COVID-19) mRNA BNT-162b2 Isaias Apodaca [phone]-LaeugEast [facility] City Hospital Digestive HealthComment on above:Result Comment: 2024-01-25: RBMSZG09-96-6817mvczawqgh virus vaccine, unspecified formulationSaint [facility] SCANNER SUPERVISOR-SECURITY ROVER Work Phone: [phone]-JxbweEast [facility] City Hospital Digestive [facility] HospitalComment on above:Result Comment: 2024-01-25: [id number]-XfL-8 (COVID-19) mRNA-1273 vaccineMuhammad Sarmini [phone]-Odbcj[address] [place], [place] 6936601-13-2021 SARS-CoV-2 (COVID-19) mRNA-1273 vaccineMuhammad Sarmini [phone]-Nsbrw[address] [place], [place] 6936601-27-2011 HPV, unspecified formulationMuhammad Sarmini [phone]-Oiwqn[address] [place], [place] 6936601-27-2011 meningococcal ACWY vaccine, unspecified formulationMuhammad Sarmini 106-3469Qwfqvc-MxekqOur [facility]01-27-2011 tetanus toxoid, reduced diphtheria toxoid, and acellular pertussis vaccine, adsorbedMuhammad Sarmini [phone]-Wzjdv[address] [place], [place] 6936609-16-2002 measles, mumps and rubella virus vaccineMuhammad Sarmini [phone]-FfayyOur [facility]03-05-2001 DTaP, unspecified formulationMuhammad Sarmini [phone]-KjorkOur [facility] Of Mercy Hospital03-05-2001 hepatitis B vaccine, pediatric or pediatric/adolescent dosageMuhammad Sarmini [phone]-VgvfrOur [facility] Of [facility]03-05-2001 Hib, unspecified formulationMuhammad Sarmini 347-1536Xmeejf-JtwkvOur [facility]03-05-2001 measles, mumps and rubella virus vaccineMuhammad Sarmini [phone]-LdyqgOur [facility] Of [facility] Hospital03-05-2001 poliovirus vaccine, unspecified formulationMuhammad Sarmini [phone]-XakatOur [facility] Of [facility]cy Hospital04-13-1998 DTaP, unspecified formulationMuhammad Sarmini 816-7520Gyzvtr-YwnazOur [facility] Of [facility] Hospital04-13-1998 Hib, unspecified formulationMuhammad Sarmini 769-3455Xtgfgw-DucrjOur [facility] Of [facility] Hospital04-13-1998 poliovirus vaccine, unspecified formulationMuhammad Sarmini 191-8371Hiyasd-YwquyOur [facility]01-08-1998 DTaP, unspecified formulationMuhammad Sarmini [phone]-FtybmOur [facility] Of [facility]01-08-1998 hepatitis B vaccine, pediatric or pediatric/adolescent dosageMuhammad Sarmini 732-5742Cbkkvk-ZlznjOur [facility] Of [facility] Hospital01-08-1998 Hib, unspecified formulationMuhammad Sarmini 140-4663Efslso-EcdxqOur [facility] Of [facility]01-08-1998 poliovirus vaccine, unspecified formulationMuhammad Sarmini [phone]-XivzxOur [facility] Of [facility]cy Hospital1997 hepatitis B vaccine, pediatric or pediatric/adolescent dosageMuhammad Sarmini [phone]-XwyphOur Lady Of Mercy Hospital Payers DatePayer CategoryPayerPolicy [id number] Health Insurance [id number]-[id number] Care (unspecified) [id number] Managed Care - [facility] Member Subscriber Plan / Payer (Effective 2021-Present) Name: Zainab Swift Relation to Subscriber: Spouse Name: SYBIL SWIFT Date of : 1994 (Home) Address: [place] [address] Payer ID: Not on file Type: Not on file Address: [address] [place] [id number] 60-87-4829Aqbvcmm Care HMO (unspecified)[id number] 32-87-9576BkfsgipJSKIBHAZG [place] [employer]ERRED PPO [id number] 2021-[facility] [phone] [address] [place] [address] [id number] [id number]673-53-5746Srcgnho 1.2.840.292020.1.13.172.2.7.3.575507.76489-87-8371Hscmoxt4922004 2.16.840.1.299922.3.579.2.56732-35-9503Vhmzjlx3849909 2.16.840.1.317032.3.579.2.29982-24-4739Enetopl0391899 2.16.840.1.934883.3.579.2.10370-93-0811Hieowri3082906 2.16.840.1.364261.3.579.2.32611-96-4030Olureol8670913 2.16.840.1.594538.3.579.2.92766-03-1034Jonwses2795170 2.16.840.1.765973.3.579.2.69187-45-6482Lbqsxbd3020197 2.16.840.1.669955.3.579.2.75899-33-8143Yuanouj8897740 2.16.840.1.313905.3.579.2.43914-48-6785Xdqzhzx2162902 2.16.840.1.566535.3.579.2.56593-92-0138Dzugaam4850586 2.16.840.1.130942.3.579.2.03613-34-2076Cepeerh1243080 2.16.840.1.316588.3.579.2.85154-26-2068Esggeyc7376838 2.16.840.1.005425.3.579.2.54586-36-8452Xzzbwoo3578353 2.16.840.1.344117.3.579.2.79799-04-8817Mxdpwxp7949219 2.16.840.1.366251.3.579.2.55191-88-2726Vshttfq2546246 2.16.840.1.097151.3.579.2.83567-91-3523Vievegr6026562 2.16.840.1.649594.3.579.2.79074-52-3992Cuqeulr9987143 2.16.840.1.642054.3.579.2.38737-91-7659Nutkqwz03152281 2.16.840.1.234289.3.579.2.318567-53-0989Fsrzqaj60029217 2.16.840.1.247621.3.579.2.470995-45-6502Uvlopcm43141778 2.16.840.1.712798.3.579.2.640432-79-5072Nghpret588932353 2.16.840.1.808031.3.579.2.82410-79-7456Jpkidmq449276026 2.16.840.1.104986.3.579.2.9[id number] 2.16.840.1.939275.3.579.2.73974-70-8945Ezkjpeh281290266 2.16.840.1.878295.3.579.2.14977-94-2434Svhcejh701393030 2.16.840.1.114924.3.579.2.04765-99-1100Tcymlwz646980884 2..840.1.205275.3.579.2.33989-77-9032Tnaqumk383730612 2.840.1.052886.3.579.2.36889-78-7515Fgmesvh819496395 2.840.1.095884.3.579.2.02327-12-4785Mhllduk404539992 2..840.1.383737.3.579.2.35941-65-4150Boxhlnz180548177 2.840.1.930961.3.579.2.39725-29-3879Jxzhocf178560261 2..840.1.278594.3.579.2.00049-36-6065Dsvlleg597108855 2.840.1.638919.3.579.2.20472-41-4022Soacpfb099608518 2.16.840.1.933900.3.579.2.16284-15-7144Kcuuazz34881909 2.16840.1.213870.3.579.2.819052-32-7111Wigjiix73812374 2..840.1.244086.3.579.2.709835-61-9882Ukorjad9710005 2.16.840.1.904040.3.579.2.928068-42-0750Gkbfycp5857363 2..840.1.470680.3.579.2.425545-40-0101Oxipkoo0634993 2.16.840.1.793928.3.579.2.199197-69-6682Lvoewei02556743 2.16.840.1.493892.3.579.2.18346-97-8751Jfkjlut24940322 2.16.840.1.621426.3.579.2.39956-24-4910AoctjwgS7405756914PmbvuqcF95734048 2..840.1.204779.34Sxiftyg66579779 2.16.840.1.294355.3.579.2.055Gydaewm71128981 2..840.1.231066.3.579.2.682Gaqkicj41161349 2.16.840.1.919179.3.579.2.531 Diayebh90285537 2.840.1.744701.3.579.2.531 Social History DateTypeDetailFacilityUnknown if ever smokedNort Harbor [employer] Other Start: 03-11-2023 End: 65-68-3020Vxe Assigned At BirthOSU [facility] CenterT[facility] [facility] [place] smoking status NHISTobacco smoking consumption unknownEast [facility] Work Phone: Start: 39-58-6422Fkw Assigned At BirthNot on file [facility]: 03-19-2022 End: 93-83-7368Rqprugv smoking status NHISNever smoked tobaccoOSRiverside Methodist Hospitaltart: 03-31-2022 End: 89-67-3626Rgsesfu intakeEx-drinker (finding)[facility]art: 56-80-0942Ssnqxpp SDOH Alcohol Commentlast alchohol 2020; mixed drink rarelyOSU [facility] Health Institutetart: 02-11-2022 End: 97-24-0456Zwpffdk use and exposureSmokeless tobacco non-userOSU Riverview Health Institutetart: 05-12-2022 End: 07-20-7532Lmbpiqab to SARS-CoV-2 (event)Not sureOSSamaritan North Health Center Start: 06-28-2022 End: 51-31-5133Sqjhzqqe to SARS-CoV-2 (event)Unable to assessOSU Riverview Health Institutetart: 03-11-2023 End: 85-19-4291Gmynkji of Social functionOSRiverside Methodist Hospitaltart: 13-12-1016Jkbimuoulw depression screening ctoxmuyryw3YKVCleveland Clinic Marymount Hospital Start: 89-91-1776ZtovlkrhjFRRR HealthcareStart: 94-19-5760Pyl Assigned At FemaleGARFIELD MEMORIAL [facility] HealthcareStart: 85-99-0464Hiaxsw identityIdentifies as female gender (finding)[facility] HealthcareStart: 00-70-5533Usdkgv orientationHeterosexual (finding)[facility] HealthcareDo you belong to any clubs or organizations such as rastafarian groups, unions, fraternal or athletic groups, or [...] these days [OSQ]Very muchProMedica Health SystemStart: 02-18-2022 Wkdvubysk98TpmGuddqs Health SystemStart: 02-04-2022 End: 67-45-6694XpgNxlqoo (finding)[facility] SystemStart: 12-21-2024 Alcoholic beverage intakeLifetime non-drinker (finding)[facility] Sexual OrientationEast [facility] City Hospital Digestive Health Goals DatePatient GoalDesired Activity/StatePersonal health goal Functional Status CwlgTsaskqfxflHsnvgmIsiscesz42-59-3697Parecrlldv StatusN/AmandaKettering Health Dayton Digestive Casklr66-75-9708Fdc you deaf, or do you have serious difficulty hearingNo 05/22/2022 3:44 PM EDT Yvrose Chamberlain RN [facility]11-04-2022Are you blind, or do you have serious difficulty seeing, even when wearing glassesNo 05/22/2022 3:44 PM EDT Yvrose Chamberlain RN NoCleveland Clinic Marymount Hospital11-04-2022Do you have serious difficulty walking or climbing stairsNo 05/22/2022 3:44 PM EDT Yvrose Chamberlain RN [facility] 59-05-6482Av you have difficulty dressing or bathingNo 05/22/2022 3:44 PM EDT Yvrose Chamberlain RN [facility]11-04-2022Because of a physical, mental, or emotional condition, do you have difficulty doing errands alone such as visiting a physician's office or shoppingNo 05/22/2022 3:44 PM EDT Yvrose Chamberlain RN [facility] Mental Status YnjdPelmqwrqncQhbwxtSzbdvpky63-68-2691Iccwzgy of a physical, mental, or emotional condition, do you have serious difficulty concentrating, remembering, or making decisionsNo 05/22/2022 3:44 PM EDT Yvrose Chamberlain RN [facility] Clinical Notes 12-22-2021 to 02-07-2025 Note Date & GmjiUvdjLecrqhir49-36-2231 Telephone encounter Note* Telephone Encounter - Geneva Moncada RN - 02/07/2025 9:34 AM EDT Sent My Chart Message 02/07/25 asking patient if / when / where she had c-diff testing and hydrogen breath test done. [facility]07-23-2025 Miscellaneous Notes* Telephone Encounter - Geneva [...] hydrogen breath test have been completed locally [facility]. Orders sent via HomeStay on 01/31 documented in this encounterCleveland Clinic Marymount Hospital07-23-2025 Telephone encounter Note* Telephone Encounter - Geneva Moncada RN - 02/07/2025 8:52 AM EDT ----- Message from RUPERT Bran sent at 01/31/2025 9:46 AM EDT ----- Regarding: c-diff and Hydrogen breath test Please f/up with pt to see if c[place]diff testing or [place] sent [place] HomeStay on 01/31 [facility]07-17-2025 History of Present illness Narrative* Eve Salazar - 02/01/2025 10:40 AM EDT Reason for Appointment: Patient ID: Zainab Swift is a 29 y.o. female who presents for Pre-op Visit Patient presents today for Pre Op appointment. Patient is scheduled to undergo Diagnostic Laparoscopy, possible DANA, possible FOE, possible BSO on 03-02-[address] Ruano at [facility]. MEDICATIONS Current Outpatient Medications Medication Instructions [...] reviewed, and patient is to proceed to [facility] OR. Follow Up: Patient is to follow up between 1-2 weeks post operative to assess proper healing and recovery fromprocedure. Documented by Rhoda Ortega LPN on behalf of: Ron Ruano DO documented in this encounterOzarks Community HospitalDttojtitjt06-30-2526 Hospital Discharge instructions Follow Up Care 01/31/2025 15:59:02 With:Paulie DUPONT, JIAN Davis, [facility] Address: [address] [place] [address], [address] [phone] When:Within 2 Month(s) [facility] 06-05-2025 History of Present illness Narrative* Nadege Pleitez MD - 12/21/2024 9:00 AM EDT I have had the pleasure of seeing Ms. Zainab Swift [facility] Rheumatology Clinic today. Patient was referred by [...] upper back pain and general body aches. Dtal-xam-rpvgsjl medications provide some relief, but she has [...] vision, lasting a couple of hours. An personal consultant diagnosed her with minor astigmatism but could [...] or use drugs. 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 FAMILY HISTORY Her mother was diagnosed [...] patient education regarding fibromyalgia. Recommended utilization of [employer] [facility]'s Fibroguide (OpenDrive) and self-care modules. - Will defer medical [...] will follow-up as needed Nadege Pleitez MD Credit Checker Department of Rheumatology and Immunology [facility] Records reviewed for today's visit included but was not limited to: [facility] in- house chart, laboratory and imaging results relevant to today's visit, travel sales consultant notes, [facility]where [facility] (if available). Total time spent for [...] probiotic product, and rizatriptan. documented in this [facility]06-05-2025 Instructions* Patient Instructions* Nadege Pleitez MD - [...] another condition Online resources for fibromyalgia include: [facility] - painguide.Ranker National Fibromyalgia Association - www.fmaware.org Fibromyalgia Care Society of [place] - fibro.org Cognitive Behavioral Therapy Resource - [employer] Advocacy Support Fibro - supportfibromyalgia.org documented in this encounterOSU [facility] General Health Center2025 History of Present illness Narrative* Rhoda Ortega, PRODUCTION SUPERINTENDENT HYDRO - 11/21/2024 11:30 AM EDT Reason for Appointment: Patient ID: Zainab Swift is a 29 y.o. female who presents for Pre-op Visit Patient presents today for Pre Op appointment. Patient is scheduled to undergo Diagnostic Laparoscopy, possible DANA, possible FOE, possible BSO on 12/15/[address] Ruano at [facility]. MEDICATIONS Current Outpatient Medications Medication Instructions [...] nursing note reviewed. Exam conducted with a adult literacy instructor present. Vitals: Estimated body mass index is [...] reviewed, and patient is to proceed to [facility] OR. Follow Up: Patient is to follow up between 1-2 weeks post operative to assess proper healing and recovery fromprocedure. Documented by Beata Franco LPN on behalf of: Ron Ruano DO documented in this encounterOzarks Community HospitalKikmsmxdjs73-96-5586 Telephone encounter Note* Telephone Encounter - Yadira Lane MD - 11/16/2024 5:09 PM EDT Discussed with Ms. Lamb about her migraine injections. Her insurance does not cover Aimovig. We have to switch to Emgality which is approved by her medical insurance. We discussed she will give her self the loading dose injections of 2ml. Then she will picker operator the monthly maintenance injection of Emgality at [...] ready for pick-up. Yadira Lane MD, PhD [facility]05-01-2025 Miscellaneous Notes* Telephone Encounter - Yadira Lane MD - 11/16/2024 5:09 PM EDT Discussed with Ms. Lamb about her migraine injections. Her insurance does not cover Aimovig. We have to switch to Emgality which is approved by her medical insurance. We discussed she will give her self the loading dose injections of 2ml. Then she will picker operator the monthly maintenance injection of Emgality at [...] Prior Authorization Per the patient's insurance provider, [employer], the prior authorization for Emgality 120 (on-label) was approved. Authorization number: [id number] Authorization start date: 11.16.24 Authorization end date: [...] Solution Auto-injector. 11/09/24 documented in this encounterU Southwest General Health Center05-01-2025 Note* Addendum Note - Yadira Lane MD - 11/16/2024 1:24 PM EDTAddended by: YADIRA LANE on: 11/16/2024 01:24 PM Modules accepted: Orders [facility]05-01-2025 Note* Addendum Note - Yadira Lane MD - 11/16/2024 1:24 PM EDTAddended by: YADIRA LANE on: 11/16/2024 01:24 PM Modules accepted: Orders [facility]05-01-2025 Miscellaneous Notes* Addendum Note - Yadira Lane MD - 11/16/2024 1:24 PM EDTAddended by: YADIRA LANE on: 11/16/2024 01:24 PM Modules accepted: Orders * Telephone Encounter - Johana Giordano - 11/16/2024 11:44 AM EDT Medication Access Team coordinated the following [facility] PAC Clinics: MS/Neurology Prior Authorization Per the patient's insurance provider, [employer], the prior authorization for Emgality 120 (on-label) was approved. Authorization number: [id number] Authorization start date: 11.16.24 Authorization end date: [...] Solution Auto-injector. 11/09/24 documented in this encounterOSU Southwest General Health Center05-01-2025 Telephone encounter Note* Telephone Encounter - Johana Giordano - 11/16/2024 11:44 AM EDT Medication Access Team coordinated the [facility] MS/Neurology Prior Authorization Per the patient's insurance provider, [employer], the prior authorization for Emgality 120 (on-label) was approved. Authorization number: [id number] Authorization start date: 11.16.24 Authorization end date: 11.15.25 #2ml per 30 days $35.00 Non-Specialty Prescriptions: 1, 8-10 min Johana Giordano [facility]05-01-2025 Telephone encounter Note* Telephone Encounter - Johana Giordano - 11/16/2024 8:53 AM EDT Images from the original note were not included. Loading dose Emgality is already marked in the system (this happens frequently) We can wait to prescribe until insurance gives us a determination before doing these scripts for loading and maintenance. [facility]04-30-2025 Telephone encounter Note* Telephone Encounter - Johana Giordano - 11/15/2024 4:02 PM EDT Requested PA for Galcanezumab-gnlm 120 MG/ML Solution Auto-injector loading dose Johana Giordano [facility]04-30-2025 Miscellaneous Notes* Telephone Encounter - Johana Giordano [...] Solution Auto-injector. 11/09/24 documented in this encounterOSU Southwest General Health Center04-30-2025 Note* Addendum Note - Yadira Lane MD - 11/15/2024 3:48 PM EDTAddended by: YADIRA LANE on: 11/15/2024 03:48 PM Modules accepted: Orders [facility]04-30-2025 Note* Addendum Note - Yadira Lane MD - 11/15/2024 3:48 PM EDTAddended by: YADIRA LANE on: 11/15/2024 03:48 PM Modules accepted: Orders [facility]04-30-2025 Note* Addendum Note - Yadira Lane MD - 11/15/2024 3:48 PM EDTAddended by: YADIRA LANE on: 11/15/2024 03:48 PM Modules accepted: Orders [facility]04-28-2025 History of Present illness Narrative* Rhoda [...] nursing note reviewed. Exam conducted with a adult literacy instructor present. Vitals: Estimated body mass index is [...] of: Ron Ruano DO documented in this encounterOzarks Community HospitalAmebesxrle37-89-7964 Telephone encounter Note* Telephone Encounter - Louie Elizabeth - 11/09/2024 4:54 PM EDT Requested Prescriptions Pending Prescriptions Disp Refills Galcanezumab-gnlm (Emgality) 120 MG/ML Solution Auto-injector [Pharmacy Med Name: EMGALITY 120 MG/ML PEN] 0 Last office visit: 11/09/24 Next office visit: has not been scheduled yet Medication last filled: Erenumab-aooe (Aimovig) 70 MG/ML Solution Auto-injector. 11/09/24 [facility]04-24-2025 History of Present illness Narrative* Yadira Lane MD - 11/09/2024 3:15 PM EDT Images from the original note were not included. [facility] NOTE Chief complaint: Patient with [...] q4 m. Last seen on 09/28/2024 at [facility] cancer center. - on going flushing q2days, [...] OR COLONOSCOPY DIAGNOSTIC 04/08/2022 APPENDECTOMY LAPAROSCOPIC 02/03/2022 [place], [place] Family History Problem Relation Age of [...] Resource Strain: Medium Risk (02/18/2022) Received from [facility] Overall Financial Resource Strain (CARDIA) Difficulty of Paying Living Expenses: Somewhat hard Food Insecurity: Unknown (04/13/2024) [facility] Within the past 12 months we worried whether our food would run out before we got money to buy more.: Never True Food Insecurity - Inability: Not on file Transportation Needs: Low Risk (07/09/2023) Re[facility] from [facility]) Transportation Has a lack of transportation kept you from medical appointments, meetings, work, or from getting things needed for daily living?: Not on file Physical Activity: Insufficiently Active (02/18/2022) Received from [facility] Exercise Vital Sign Days of Exercise per Week: 3 days Minutes of Exercise per Session: 40 min Stress: Stress Concern Present (02/18/2022) Received from [facility], [facility] [place] of Occupational [facility] - Occupational Stress Questionnaire Feeling of Stress : Very much Social Connections: Unknown (02/18/2022) Received from [facility] Social Connection and Isolation Panel [NHANES] Frequency of Communication with Friends and Family: Twice a week Frequency of Social Gatherings with Friends and Family: Patient declined Attends Spiritism Services: Never Active Member of Clubs or [...] to confrontation. PERRL. 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 [...] Jaw jerk Montero Babinski Down Down Coordination: Rcihth-wb-fryd intact bilaterally. Sensation: Comments Light touch Intact [...] noted by Dr. Lane. Ed Noble MD Credit Checker of Neurology [facility] Neurological [place] documented in this encounterCleveland Clinic [facility] Hospital04-24-2025 Instructions* Patient Instructions* Yadira Lane MD [...] up in 3 months documented in this [facility]03-13-2025 Note* Addendum Note - MAMTA Melara - 09/28/2024 1:02 PM EDTAddended by: YOEL COOLEY on: 09/28/2024 01:02 PM Modules accepted: Orders [facility]03-13-2025 Note* Addendum Note - CAMELIA Melara CNP - 09/28/2024 1:02 PM EDTAddended by: YOEL COOLEY on: 09/28/2024 01:02 PM Modules accepted: Orders [facility]03-13-2025 Note* Addendum Note - CAMELIA Melara CNP - 09/28/2024 1:02 PM EDTAddended by: YOEL COOLEY on: 09/28/2024 01:02 PM Modules accepted: Orders [facility]03-13-2025 Miscellaneous Notes* Addendum Note - MAMTA Melara - 09/28/2024 1:02 PM EDTAddended by: YOEL COOLEY on: 09/28/2024 01:02 PM Modules accepted: Orders * Telephone Encounter - Danielle Saunders - 09/28/2024 12:40 PM EDT Called patient and patient is scheduled as outlined by AVS. Patient asking for a banbury operator [facility] stated [facility] but would like to see someone different. Is someone able to help with this please? Thank you! Instructions from MAMTA Stanley RTC: 4 months with labs, scans 1 week prior with Ye Referral to neurology headache clinic documented in this encounterOSU [facility] Center03-13-2025 Telephone encounter Note* Telephone Encounter - Danielle Saunders - 09/28/2024 12:40 PM EDT Called patient and patient is scheduled as outlined by AVS. Patient asking for a banbury operator referral for [facility]. Patient stated [facility] one [facility] at [facility] but would like to see someone different. Is someone able to help with this please? Thank you! Instructions from Yoel Cooley APRN-SECURITY ROVER RTC: 4 months with labs, scans 1 week prior with Ye Referral to neurology headache clinic [facility]01-30-2025 History of Present illness Narrative* TROY Jorge [...] nursing note reviewed. Exam conducted with a adult literacy instructor present. Vitals: Estimated body mass index is [...] behalf of: TROY Jorge documented in this encounterOzarks Community HospitalGcxyodimmy71-86-8362 Miscellaneous Notes* Telephone Encounter - Alena Beauchamp [...] with no further questions. documented in this encounterWayne Hospital10-28-2024 Telephone encounter Note* Telephone Encounter - Alena Beauchamp CMA - 05/15/2024 2:42 PM EDT ----- Message from Dr. Timmy Hall, sent at 05/15/2024 10:51 AM EDT ----- Please let patient know that she had mild chronic gastritis and I recommend taking omeprazole OTC for 6 weeks otherwise she may follow up p.r.n.. ThanksDr. Smith [facility]10-28-[facility] Telephone encounter Note* Telephone Encounter - Alena Beauchamp CMA - 05/15/2024 2:42 PM EDT Spoke with patient regarding pathology results. Patient verbally understood with no further questions. [facility]10-04-2024 Telephone encounter Note* Telephone Encounter - [...] clinic when test completed to obtain reports. [facility]10-04-2024 Miscellaneous Notes* Telephone Encounter - Piedad [...] was rescheduled to 04/25/24. She c/o abdominal smtd-nrldd-xgx RUQ, nausea, no vomiting or fevers, occasional chills, and more frequent diarrhea outside of her normal daily diarrhea. She is inquiring if would order a CT of her abdomen. She is requesting a call back. documented in this encounterOSSam[facility]10-04-2024 Telephone encounter Note* Telephone Encounter - Piedad Best RN - 04/21/2024 1:21 PM EDT Attempted to contact patient and message left. [facility]09-26-2024 History of Present illness Narrative* Aurelia Chakraborty, SCANNER SUPERVISOR-SECURITY ROVER - 04/13/2024 10:30 AM EDT Images from [...] Date Anxiety and depression Back pain Cancer ([facility]) GERD (gastroesophageal reflux disease) Migraine Neuroendocrine cancer ([facility]) Personality disorder ([facility]) Past Surgical History: Procedure Laterality Date APPENDECTOMY 02/03/2022 COLON SURGERY 05/22/2022 Right Hemicolectomy- [facility] COLONOSCOPY DAVINCI CHOLECYSTECTOMY N/A 06/18/2023 Performed by Carmen Saab MD at [facility] LAPAROTOMY 04/21/2022 [facility] LYMPH NODE BIOPSY SMALL INTESTINE SURGERY Allergies [...] 40 min Stress: Stress Concern Present (02/18/2022) [place] [facility] [employer] [facility] - Occupational Stress Questionnaire Feeling of Stress : Very much Social Connections: Unknown (02/18/2022) Social Connection and Isolation Panel [NHANES] Frequency of Communication with Friends and Family: Twice a week Frequency of Social Gatherings with Friends and Family: Patient declined Attends Spiritism Services: Never Active Member of Clubs or [...] and colonoscopy at a later date in [place] Evaluation included: Preparing to see the patient (e.g., review of tests) Obtaining and/or reviewing separately obtained history Performing a medically appropriate examination and/or evaluation Counseling and educating the patient/family/caregiver Referring and communicating with other health critical care unit nurse Colitis [K52.9] MAMTA LEWIS [facility] [place] This note was created with the assistance of a speech recognition program. While intending to generate a timely document that accurately reflects the content of the visit, no guarantee can be provided that every grammatical or spelling mistake has been or will be identified or corrected. Thank you for your understanding. MAMTA Lewis 04/14/24 0842 documented in this encounterWayne Hospital09-25-2024 Telephone encounter Note* Telephone Encounter - Yoel Medrano RN - 04/12/2024 11:43 AM EDT 04/12/2024 11:43 AM Patient sent a i[employer] chart message asking this per Dr Ortega: Did she try cholestyramine for the diarrhea? RN also let her know via my chart about her scan. --Yoel Medraon RN [facility]09-25-2024 Miscellaneous Notes* Telephone Encounter - Yoel [...] was rescheduled to 04/25/24. She c/o abdominal zbru-slfzq-lus RUQ, nausea, no vomiting or fevers, occasional chills, and more frequent diarrhea outside of her normal daily diarrhea. She is inquiring if would order a CT of her abdomen. She is requesting a call back. documented in this encounterOS[facility] Telephone encounter Note* Telephone Encounter - Pinky [...] blood in stools just a couple instances [facility]09-24-2024 Telephone encounter Note* Telephone Encounter - Quin Kelly - 04/11/2024 8:56 AM EDT Patient phoned in stating that she was scheduled for her PET scan tomorrow however she had her Octreotide injection 8 days ago so it was rescheduled to 04/25/24. She c/o abdominal fnns-zykbo-enb RUQ, nausea, no vomiting or fevers, occasional chills, and more frequent diarrhea outside of her normal daily diarrhea. She is inquiring if would order a CT of her abdomen. She is requesting a call back. [facility]08-30-2024 Note* Addendum Note - MAMTA Travis - 03/17/2024 4:17 PM EDTAddended by: CHRISTOPHER MORALEZ on: 03/17/2024 04:17 PM Modules accepted: Orders [facility]08-30-2024 Note* Addendum Note - MAMTA Travis - 03/17/2024 4:17 PM EDTAddended by: CHRISTOPHER MORALEZ on: 03/17/2024 04:17 PM Modules accepted: Orders [facility]08-30-2024 Telephone encounter Note* Telephone Encounter - MAMTA Travis - 03/17/2024 4:17 PM EDT Refilled [facility]08-30-2024 Miscellaneous Notes* Addendum Note - MAMTA [...] sent to their clinic? Surgery center in [place]. She didn't ever picker operator the prescription for her short acting octreotide. [...] she will need to start prep soon. [phone] documented in this encounterCleveland Clinic [facility]08-30-2024 Telephone encounter Note* Telephone Encounter - Pinky Morales RN - 03/17/2024 3:32 PM EDT Call placed to patient - she was rescheduled for April 04. They asked to ask us if they have to have an order sent to their clinic? Surgery center in [place]. She didn't ever picker operator the prescription for her short acting octreotide. She'd be happy to pick that up to take the short acting shots prior to procedure. [facility]08-26-2024 Telephone encounter Note* Telephone Encounter - Lyndon Little RN - 03/13/2024 1:27 PM EDT Called to speak to patient regarding her colonoscopy but no answer at this time. LVM to have patient call us back at their earliest convenience [facility]08-26-2024 Telephone encounter Note* Telephone Encounter - Avril Umanzor - 03/13/2024 11:31 AM EDT Patient calling in stating she has a colonoscopy scheduled tomorrow. The surgery center where she is getting it done does not have the Octreotide she should take. Wanting to know if she should reschedule. Requesting a response as soon as possible as she will need to start prep soon. [phone] [facility]07-22-2024 Evaluation + Plan note Future Scheduled Tests Laboratory* Celiac Disease Comprehensive 02/07/24 * Celiac Disease Comprehensive 02/07/24 [facility] [id number] History of Present illness Narrative* Jayne Singh, SPENCER-SECURITY ROVER - 01/06/2024 3:00 PM EDT Images from [...] disorder. RLQ pain.She underwent an appendectomy at [facility] 02/03/22. Pathology was consistent with both [...] She has followed with Dr. Ortega at [facility]. She began octreotide LAR 09/09/22. This was [...] N/A; Surgeon: Archie Hugo MD, PhD; Location: [facility] MAIN OR COLECTOMY PARTIAL OPEN Right 05/22/2022 Laterality: Right; Surgeon: Archie Hugo MD, PhD; Location: [facility] MAIN OR DEBULKING INTRA-ABDOMINAL/PELVIC/RETROPERITONEAL W/ OMENECTOMY & PELVIC PARA- AORTIC LYMPHADENECTOMY N/A 05/22/2022 Laterality: N/A; Surgeon: Archie Hugo MD, PhD; Location: [facility] MAIN OR COLECTOMY PARTIAL LAPAROSCOPIC N/A 04/21/2022 Laterality: N/A; Surgeon: Archie Hugo MD, PhD; [facility] MA[facility] OR COLONOSCOPY DIAGNOSTIC 04/08/2022 APPENDECTOMY LAPAROSCOPIC 02/03/2022 [facility], [place], [place] Medications: Current Outpatient Medications Medication Sig [...] (Patient not taking: Reported on 01/06/2024) Pancrelipase, Mnh-Sqon-Dtve, (Creon) [id number] units Cap DR Particles Please take one [...] Resource Strain: Medium Risk (02/18/2022) Received from [facility] Overall Financial Resource Strain (CARDIA) Difficulty of Paying Living Expenses: Somewhat hard Food Insecurity: No Food Insecurity (07/07/2023) Received from [facility] Hunger Screening Within the past 12 months we worried whether our food would run out before we got money to buy more.: Never True Within the past 12 months the food we bought just didn't last and we didn't have money to get more.: Never True Transportation Needs: No Transportation Needs (02/18/2022) [facility] - Transportation Lack of Transportation (Medical): No Lack of Transportation (Non-Medical): No Physical Activity: Insufficiently Active (02/18/2022) [facility] Vital Sign Days of Exercise per Week: 3 days Minutes of Exercise per Session: 40 min Stress: Stress Concern Present (02/18/2022) [facility] [place] [facility] [employer] [facility] - Occupational Stress Questionnaire Feeling of Stress : Very much Social Connections: Unknown (02/18/2022) [facility] Social Connection and Isolation Panel [NHANES] Frequency of Communication with Friends and Family: Twice a week Frequency of Social Gatherings with Friends and Family: Patient declined Attends Spiritism Services: Never Active Member of Clubs or [...] y.o. female who underwent an appendectomy at [facility] 02/03/22.Pathology was consistent with both LAMN [...] to her satisfaction. Vinicius Gomes MD, PhD Business Development Agent Division of Medical Oncology Division of Gynecologic Oncology documented in this encounterOS[facility] Instructions* Patient Instructions* Latesha Steen RN - 01/06/2024 3:00 PM EDT You will return to clinic: 1 year To see provider: Dr Gomes documented in this encounterOS[facility]05-10-2024 History of Present illness Narrative* Kimberley Woodall LPN - 11/26/2023 9:30 AM EDT This nurse verified pts name and . * MAMTA Dee - 11/26/2023 9:30 AM EDT Subjective History of Present Illness: Chief Complaint Patient presents with New Patient Zainab Swift is a 28 y.o. female who presents to the [facility] Gastroenterology, Hepatology, and Nutrition Clinic [...] Surgeon: Archie Hugo MD, PhD; [facility] MAIN OR COLECTOMY PARTIAL OPEN Right 05/22/2022 Laterality: Right; Surgeon: Archie Hugo MD, PhD; [facility] MAIN OR DEBULKING INTRA-ABDOMINAL/PELVIC/RETROPERITONEAL W/ OMENECTOMY & PELVIC PARA- AORTIC LYMPHADENECTOMY N/A 05/22/2022 Laterality: N/A; Surgeon: Archie Hugo MD, PhD; [facility] MAIN OR COLECTOMY PARTIAL LAPAROSCOPIC N/A 04/21/2022 Laterality: N/A; Surgeon: Archie Hugo MD, PhD; [facility] MAIN OR COLONOSCOPY DIAGNOSTIC 04/08/2022 APPENDECTOMY LAPAROSCOPIC 02/03/2022 [place], [place] Current Outpatient Medications Medication Sig acetaminophen [...] as needed for Other (carcinoid syndrome). Pancrelipase, Oxg-Tykx-Gkdw, (Creon) 81109-488097 units Cap DR Particles Please take one [...] enzymes - ALPHA 1 ANTITRYPSIN; Future - OSCIT-9-HIJNCPEUVDD PHENOTYPE; Future - HUNTER SCREEN IFA; Future [...] Future - TRANSIENT ELASTOGRAPHY documented in this [facility]05-10-2024 Instructions* Patient Instructions* MAMTA Dee - 11/26/2023 9:30 AM EDT Labs today to evaluate for causes of liver enzyme elevation Fibroscan ordered to evaluate your liver for fibrosis, steatosis Follow up in 3 months - video documented in this encounterCleveland Clinic [facility]02-06-2024 History of Present illness Narrative* Ron [...] nursing note reviewed. Exam conducted with a adult literacy instructor present. Vitals: Estimated body mass index is [...] of: Ron Ruano DO documented in this encounterOzarks Community HospitalTzhxwleyum09-41-3114 History of Present illness Narrative* Isatu Blunt, SCANNER SUPERVISOR-SECURITY ROVER - 12/10/2022 12:30 PM EDT Chief Complaint: Chief Complaint Patient presents with Follow-up HPI: Zainab Swift is a 27 y.o. female who presents to [facility] Oncology [facility] for post-operative [...] (Patient not taking: Reported on 07/06/2022) Pancrelipase, Idp-Ugdc-Kjmp, (Creon) [id number] units Cap DR Particles Take two caps [...] 27 y.o. female who presents to [facility] for post-operative [...] (Patient not taking: Reported on 07/06/2022) Pancrelipase, Mwp-Etca-Bxok, (Creon) [id number] units Cap DR Particles Take two caps [...] interviewed and examined this patient with the BILLING COORDINATOR/fellow/resident. I reviewed the history and exam detailed [...] months with repeat imaging. Archie Hugo MD/PhD graduate school dean Division of Surgical Oncology Department of Surgery documented in this [facility]05-25-2023 Instructions* Patient Instructions* MAMTA Villagran - 12/10/2022 12:30 PM EDT documented in this encounterOSSamaritan [facility] Center04-06-2023 History of Present illness Narrative* Grace Alexander [...] ulcers, vision changes. 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 but overall able to do everything on [...] Surgeon: Archie Hugo MD, PhD; [facility] MAIN OR COLECTOMY PARTIAL OPEN Right 05/22/2022 Laterality: Right; Surgeon: Archie Hugo MD, PhD; [facility] MAIN OR DEBULKING INTRA-ABDOMINAL/PELVIC/RETROPERITONEAL W/ OMENECTOMY & PELVIC PARA- AORTIC LYMPHADENECTOMY N/A 05/22/2022 Laterality: N/A; Surgeon: Archie Hugo MD, PhD; [facility] MAIN OR COLECTOMY PARTIAL LAPAROSCOPIC N/A 04/21/2022 Laterality: N/A; Surgeon: Archie Hugo MD, PhD; [facility] MA[facility] OR COLONOSCOPY DIAGNOSTIC 04/08/2022 APPENDECTOMY LAPAROSCOPIC 02/03/2022 [place], [place] Family History Problem Relation Age of [...] Reported on 07/06/2022) 30 tablet 0 Pancrelipase, Hml-Qmfi-Kmyq, (Creon) [id number] units Cap DR Particles Take two caps [...] labs and discussed with oncology and cardiology Rebkeah Suero MD documented in this encounterCleveland Clinic [facility] Hospital04-06-2023 Instructions* Patient Instructions* Rebekah Suero MD [...] Rub Alcohol hand rub, also called hand offset lithographic press operator, can be used instead of soap [...] they are dry, atleast 20-30 seconds. The [facility]. This handout is for informational purposes only. Talk with your doctor or healthcare team if you have any questions about your care. For more health information call the [employer] at [phone] or email: [email or web address]. documented in this encounterCleveland Clinic [facility] Hospital04-06-2023 History of Present illness Narrative* Donna Beltre - 10/22/2022 8:00 AM EDT Intravenous access obtained and remained for next appointment in cardioology at [facility]. 22 gauge IVin left ac. Dressing intact and/or coban used to secure access. Patient instructed to report directly to next appointment. documented in this encounterCleveland Clinic [facility] Hospital03-22-2023 NoteAcute Coronary Syndrome (ACS): Initial Evaluation and Management: [email or web address] [email or web address] [facility]03-22-2023 History of Present illness Narrative* MAMTA [...] to do housework. 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 Eating ok. Weight [...] Reported on 07/06/2022) 30 tablet 0 Pancrelipase, Mir-Inld-Umvy, (Creon) [id number] units Cap DR Particles Take two caps [...] OR COLONOSCOPY DIAGNOSTIC 04/08/2022 APPENDECTOMY LAPAROSCOPIC 02/03/2022 [place], [place] Past medical, surgical, family, and social [...] any new or worsening symptoms. Christopher Moralez APRN-SECURITY ROVER Endocrine Tumor Program [facility] To discuss with Dr. Ortega documented in this [facility]03-22-2023 Instructions* Patient Instructions* Johana Lutz RN - [...] script to Zainab Thank you for choosing [facility] for your cancer care. FMLA/Disability forms: Please allow up to 2 weeks for the forms to be returned to you +++ should you need any FMLA, Short term disability or shelter disability forms filled out pleasefax them to (f) [phone] ++++ Refill requests: Please allow 24-48 hours for a response My chart message response: PLEASE DO NOT SEND IN URGENT/EMERGENT MESSAGES VIA MY CHART. Please allow up to 24-48 hours for a response via my chart. Should you have questions or concerns, please call [phone] documented in this encounterCleveland Clinic Marymount Hospital12-21-2022 History of Present illness Narrative* MAMTA [...] and requires nap. 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 Better appetite with [...] OR COLONOSCOPY DIAGNOSTIC 04/08/2022 APPENDECTOMY LAPAROSCOPIC 02/03/2022 [place], [place] Social History Socioeconomic History Marital status: [...] recommendations. MAMTA Travis Neuroendocrine Tumor Program [facility] * Andreas Ortega MD, MPH - 07/08/2022 8:00 AM EST Addendum by Dr. rOtega: IAttending Addendum:I saw and evaluated the patient [...] She was seen by Dr. Archie Hugo ([facility] surgon) in 03/[address] chest revealed [...] and fatigue. ECOG PS 1. 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 1. Metastatic, well differentiated, grade 1, appendicular [...] placebo groups was 14.3 and 6 months (p=[id number]), respectively. The CLARINET study, [which enroll ed [...] A/P 2. LAMN: Discussed with Dr. Vinicius Gomes/[facility] who recommended active surveillance. No role for adjuvant systemic therapy. Patient will continue to follow with Dr. Archie Hugo. 3. Hx of NET in family: referral to genetics 4. Transaminitis: discontinue hepatotoxins/acetaminophen. Repeat LFTs at [facility]. documented in this encounterOSU [facility]12-21-2022 Instructions* Patient Instructions* Yina Amaya RN - [...] Tylenol Cancel pathology-done documented in this encounterOSU [facility]11-22-2022 History of Present illness Narrative* Raina Gomes, SCANNER SUPERVISOR-SECURITY ROVER - 06/09/2022 1:15 PM EST Chief Complaint: Chief Complaint Patient presents with Follow-up HPI: Zainab Swift is a 27 y.o. female who presents to [facility] for post-operative [...] status. MAMTA Carrion documented in this encounterU [facility]11-22-2022 Instructions* Patient Instructions* Veronique Calvin RN - 06/09/2022 1:15 PM EST Tele health visit with Raina Gomes CNP in 4 weeks on a Wednesday. Referral placed to neuroendocrine oncology. Return in [address] Hugo with scans same day. documented in this encounterOSSamaritan North Health Center11-11-2022 Note* Nursing Notes - Tania Louis RN [...] via wheelchair with all belongings at 1147. [facility]11-11-2022 Miscellaneous Notes* Nursing Notes - Tania [...] and assistance is needed, please page the online user experience strategist PCRM at [phone]. * Plan of Care - Yadira Grier [...] 9:24 PM EST 2123: Gabriella paged: Rm 1911, Kryling: FYRoxana pt states that she can't tolerate taking the olanzapine disintegrating tablet because of the NG. Thanks [phone] * Plan of Care - Jevon Branham [...] Providers Updated In IHIS Yes Contact Information Volunteer Fire Fighter/SW Added to Care Team Yes This Booster Assembler is Primary Volunteer Fire Fighter/SW Yes (Antonio Jiang RN [facility] [phone]) Volunteer Fire Fighter Name Pinky Barcenas RN [facility] Volunteer Fire Fighter's Social Work Contact Name Bailey Magallanes PARACHUTE CUSHION INSTALLER, FOOD TECHNOLOGIST Survey Worker's Living Environment Lives With spouse Living Arrangements [...] Education And Care For Discharge? Sybil Swift [phone] Can Support Person Meet The Care Needs Of The Patient? 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 Employment/Financial Concerns no Source Of Income salary/wages Financial Concerns none Insurance Medical Insurance Verified Yes Prescription Coverage Yes Pharmacy updated in IS Yes Initial Discharge Planning Home Care Services ([facility] [employer] UPHOLSTER[facility]) No Home Therapies ([employer]) None DME ([employer]) None Medical Supplies ([employer] [place] U[employer]OL[employer]) None Patient Goal for Discharge Return home with assistance from family and friends Anticipated discharge disposition Home Anticipated Services at Discharge Outpatient follow up Anticipated Changes Related to Illness none Current Discharge Risk high risk diagnoses (i.e., CHF, Stroke, DM, chronic pain, abdominal pain, nausea and vomiting) Transportation Available car Home Care Services ([employer] [place] [employer]OL[employer]) Additional Home Care Services ([employer]) no Assessment/Concerns to be Addressed Concerns To [...] Lines/Drains/Tubes Abdominal incision with dressing x 2 [place] drain x 1-under distal dressing NG-low wall [...] Report called to Jevon EMERY on 12 [facility]. All questions answered. 1514: Patient discharged from [facility] PACU per protocol. Patient transported via gurney with side rails up x2 with HOB>30 degrees to room 1204 [facility] by Natalia EMERY and Dang LISA. Family called to patient's bedside. * Nursing Notes - Jesus Jenkins RN - 05/22/2022 2:27 PM EDT 1310: Patient arrives in [facility] PACU from OR via gurney with side rails up x2 with HOB >30 degrees, accompanied by Anesthesiologist: Viincius Gupta DO; Chayo Benson MD Video Game Developer: VIJAYA Gamboa; VIJAYA Lopez Security Sales Consultant Assisting: Richard Bradshaw MD Group Home Paraprofessional: Wali Art. Patient placed on monitors, VSS. Report received from anesthesia. Patient assessed, see assessment. 1427: PACU labs and abdominal xray for NG placement cleared by Miguel Betancourt at this time. 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 JR drain placed in pelvis. SURGEON Surgeon(s) and Role: * Archie Hugo MD, PhD - Primary ANESTHESIOLOGIST Anesthesiologist: Vinicius Gupta DO; Chayo Benson MD Video Game Developer: VIJAYA Gamboa; VIJAYA Lopez Security Sales Consultant Assisting: Richard Bradshaw MD Group Home Paraprofessional: Wali Art SURGICAL STAFF Administrative Officer: Piedad Maki RN; Rima Medel RN Relief Administrative Officer: Suri Stockton RN Relief Scrub: Ghanshyam Townsend [...] - 05/22/2022 1:04 PM EDT Zainab Swift ([id number]) PRE OPERATIVE DIAGNOSIS Primary malignant neuroendocrine tumor [...] Anesthesiologist: Vinicius Gupta DO; Chayo Benson MD Video Game Developer: VIJAYA Gamboa; VIJAYA Lopez Security Sales Consultant Assisting: Richard Bradshaw MD Group Home Paraprofessional: Wali Art SURGICAL STAFF Administrative Officer: Piedad Maki RN; Rima Medel RN Relief Administrative Officer: Suri Stockton RN Relief Scrub: Ghanshyam Townsend [...] Permanent SURG PATH SURG PATH REQUEST Archie Hguo MD, PhD 05/22/2022 0941 Colon Resection Operation performed with curative intent Yes Tumor Location Cecum Extent of colon and vascular resection Right hemicolectomy - ileocolic, right colic (if present) Narciso Hong MD May 22, 2022 1:04 PM * Op Note - Archie Hugo MD, PhD - 05/22/2022 1:04 PM EDT SURGEONS: Archie Hugo MD, PhD SHORT ORDER FRY COOK SURGEON: Rodolfo Arnold MD PROCEDURE: - Exploratory [...] second timeout per standard procedure at the [facility]. We made a midline incision using [...] sarmiento stapler device. Next, we began the ebpbxg-xn-ibjoaht dissection to mobilize the colonic mesentery. We [...] filed. We then proceeded with creating a iycq-me-wsab functional end-to-end anastomosis between the distalileum and [...] Last Date Seen 05/22/22 documented in this [facility]11-11-2022 Hospital course Narrative* Louisa Cerrato MD - [...] of Surgical Oncology Arrive at: Arrive to [facility] Floor Registration [phone] documented in this [facility] Note* Nursing Notes - Pinky Be [...] N/A Transportation Transportation will be provided by Ysbil-spouse. Education Discharge education provided by the medical [...] and assistance is needed, please page the online user experience strategist PCRM at [phone]. [facility]11-10-[facility]22 History of Present illness Narrative* Elroy [...] the care of Zainab Swift. Please page [phone] or call [phone] with any questions or concerns. Elroy Powell MD Acute Pain Service Senior Resident @ [phone] * Ramonita Betancourt APRN-SECURITY ROVER - 05/28/2022 7:50 AM EST Subjective: Passing [...] Oanh Betancourt APRN-TASH HPB surgery G3 service [id number] * Yann Burr MD - 05/27/2022 8:39 [...] acute pain service at [phone] or call [phone] with any questions or concerns. Yann Burr MD PGY-1 Anesthesiology Acute Pain Service Attending Addendum I personally examined and evaluated the patient. I reviewed the case and medical record with the resident. Based on the ROS, History, and Exam, I agree with the medical decision making. Osmin Urban M.D. * Kika Colón, SCANNER SUPERVISOR-SECURITY ROVER - 05/27/2022 7:00 AM EST Subjective: Passed [...] Plan was discussed with MAMTA Wisdom [facility] surgery G3 service [phone] * ABBIE Gibson - 05/26/2022 11:13 AM EST Psychosocial Assessment Per chart review, patient is a is a 27 y.o. 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 PMH: anxiety, borderline personality disorder, depression, GERD SW met with patient to introduce self, explain social services aide role during inpatient stay, and answerpatient questions. Patient was alert and oriented x4 and agreeable to SW visit. Information Source Information Source: patient , review of medical record, spouse Information Source Name: Arlette Torreannekang Information Source Number: see demographics Contact Information Volunteer Fire Fighter Name: Pinky Smith RN PCRM Volunteer Fire Fighter's Social Work Contact Name: Bailey WILLAMS FOOD TECHNOLOGIST Survey Worker's Living Environment Lives With: spouse Living Arrangements: house (one story house wiith 3 Steps to enter) Provides Primary Care For: no one Primary Care Provided By: spouse/significant other, self Support System: Immediate family Able to Return to Prior Arrangements: yes Employment/Financial Employed?: Yes 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 Health Insurance / Rx: [id number] [place] [address] [address] [facility] Anticipated Discharge Plan: Pt report she plans to return home with care and transportation provided by her . Medical Team Considerations: None SW Interventions/Recommendations: Service SW name and contact information placed on white board in patient's room to contact as needed. SW will continue to remain available to provide assistance and support as needed during inpatient stay. IMER Christina, FOOD TECHNOLOGIST SONC and HPB Survey Worker Pager: [phone] For Evening (4:30pm-8am) and Weekend SW needs please call [phone] or page [phone] * Yann Burr MD - 05/26/2022 10:30 [...] acute pain service at [phone] or call [phone] with any questions or concerns. Yann Burr [...] Plan was discussed with Dr. Oanh Colón, SCANNER SUPERVISOR-SECURITY ROVER B surgery G3 service [phone] * Yann Burr MD - 05/25/2022 9:53 [...] regimen Please page acute pain service at [phone] or call [phone] with any questions or concerns. Yann Burr [...] interviewed and examined this patient with the BILLING COORDINATOR/fellow/resident. I reviewed the history and exam detailed in the note and have edited it as necessary. I agree with the medical decision making unless otherwise noted below. The patient is doing well. Her pain is well controlled. She is mildly distended on exam. We will continue NPO with NGT until return of bowel function. Archie Hugo MD/PhD graduate school dean Division of Surgical Oncology Department of Surgery [...] Plan was discussed with Dr. Oanh Colón, SCANNER SUPERVISOR-SECURITY ROVER HPB surgery G3 service [id number] * Estela Carey MD - 05/24/2022 9:41 [...] acute pain service at [phone] or call [phone] with any questions or concerns. Yann Burr [...] acute pain service at [phone] or call [phone] with any questions or concerns. Yann Burr [...] acute pain service at [phone] or call [phone] with any questions or concerns. Richard Bradshaw MD residential treatment specialist [facility]* Plan of Care - Yadira Grier [...] stand-by assistance from multiple times yesterday. [facility]11-08-2022 Consult note* Johana Coffman RN - 05/26/2022 [...] 1: Location: forearm, anterior, right Device/Lot Number: urev-cie-ezpyiu catheter system Gauge/Length: 1 3/4 in length;20 gauge Unsuccessful Insertion Attempts: 1 Unsuccessful Attempt Location/Site: Pain Prevention/Patient Tolerance: distraction;tolerated well;appears comfortable Removal: Additional Comments: placed by Carla Mccurdy RN Lumen 2: Lumen 3: Peripheral IV Present on Admission: (Retired/Read Only) Location: (Retired/Read Only) Device: (Retired/Read Only) Gauge/Length: Administrative Officer/Lot Number: Unsuccessful Insertion Attempts: (Retired/Read Only) Unsuccessful [...] care of this patient. Vascular Access Team [id number] [facility]11-08-2022 Consult note* Johana Coffman RN - 05/26/2022 [...] 1: Location: forearm, anterior, right Device/Lot Number: dkar-rtd-gyzuqx catheter system Gauge/Length: 1 3/4 in length;20 gauge Unsuccessful Insertion Attempts: 1 Unsuccessful Attempt Location/Site: Pain Prevention/Patient Tolerance: distraction;tolerated well;appears comfortable Removal: Additional Comments: placed by Carla Mccurdy RN Lumen 2: Lumen 3: Peripheral IV Present on Admission: (Retired/Read Only) Location: (Retired/Read Only) Device: (Retired/Read Only) Gauge/Length: Administrative Officer/Lot Number: Unsuccessful Insertion Attempts: (Retired/Read Only) Unsuccessful [...] care of this patient. Vascular Access Team [id number] [facility] in this [facility]OS[facility]-2022 Note* Nursing Notes - Louisa Tipton RN - 05/25/2022 9:24 PM EST 2124: [facility] paged: Rm [phone], Kryling: FYI pt states that she can't tolerate taking the olanzapine disintegrating tablet because of the NG. Thanks [phone] [facility]11-04-2022 Note* Plan of Care - Jevon Branham [...] outcomes by discharge/transition of care. Outcome: Ongoing [facility]11-04-20[facility] Note* Certification - Nette Roper PA-C - 05/22/2022 6:13 PM EDT I certify that this patient requires inpatient services at this time. I anticipate the expected length of stay will include at least two midnights. Inpatient services are due to the following medicalconcerns appendiceal NET. Plans for post hospitalization care will be discharge to home. [facility]11-04-2022 Note* Nursing Notes - Pinky Be RN - 05/22/2022 4:14 PM EDT 05/22/22 1608 Referral Information Arrived From home or self-care;operating room Readmission Information Was patient readmitted within 30 Days? No Information Source Information Source patient Information Source Name Zainab Swift-in person Information Source Number Demographics reviewed Outpatient Providers Outpatient Providers Updated In IHIS Yes Contact Information Volunteer Fire Fighter/SW Added to Care Team Yes This Booster Assembler is Primary Volunteer Fire Fighter/SW Yes (Antonio Jiang RN [facility] [phone]) Volunteer Fire Fighter Name Pinky Barcenas RN [facility] Volunteer Fire Fighter's Social Work Contact Name Bailey Magallanes PARACHUTE CUSHION INSTALLER, FOOD TECHNOLOGIST Survey Worker's Living Environment Lives With spouse Living Arrangements [...] Education And Care For Discharge? Sybil Swift [phone] Can Support Person Meet The Care Needs Of The Patient? 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 Employment/Financial Concerns no Source Of Income salary/wages Financial Concerns none Insurance Medical Insurance Verified Yes Prescription Coverage Yes Pharmacy updated in [facility] Yes Initial Discharge Planning Home Care Services (BOX SPRING UPHOLSTERER) No Home Therapies (BOX SPRING UPHOLSTERER) None DME (BOX SPRING UPHOLSTERER) None Medical Supplies (BOX SPRING UPHOLSTERER) None Patient Goal for Discharge Return home with assistance from family and friends Anticipated discharge disposition Home Anticipated Services at Discharge Outpatient follow up Anticipated Changes Related to Illness none Current Discharge Risk high risk diagnoses (i.e., CHF, Stroke, DM, chronic pain, abdominal pain, nausea and vomiting) Transportation Available car Home Care Services (BOX SPRING UPHOLSTERER) Additional Home Care Services (BOX SPRING UPHOLSTERER) no Assessment/Concerns to be Addressed Concerns To [...] and for discharge planning. Medical team updated. [facility]11-04-2022 Note* Nursing Notes - Jesus Jenkins RN - 05/22/2022 3:13 PM EDT 1512: Report called to Jevon EMERY on 12 [facility]. All questions answered. 1514: Patient discharged from [facility] PACU per protocol. Patient transported via gurney with side rails up x2 with HOB>30 degrees to room 1204 [facility] by Natalia EMERY and Dang MECHANICAL MANUFACTURING ENGINEER. Family called to patient's bedside. [facility]11-04-2022 Note* Nursing Notes - Jesus Jenkins RN - 05/22/2022 2:27 PM EDT 1310: Patient arrives in [facility] PACU from OR via gurney with side rails up x2 with HOB >30 degrees, accompanied by Anesthesiologist: Vinicius Gupta DO; Chayo Benson MD Video Game Developer: VIJAYA Gamboa; VIJAYA Lopez Security Sales Consultant Assisting: Richard Bradshaw MD Group Home Paraprofessional: Wali Art. Patient placed on monitors, VSS. Report received from anesthesia. Patient assessed, see assessment. 1427: PACU labs and abdominal xray for NG placement cleared by Miguel Betancourt at this time. 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 JR drain placed in pelvis. SURGEON Surgeon(s) and Role: * Archie Hugo MD, PhD - Primary ANESTHESIOLOGIST Anesthesiologist: Vinicius Gupta DO; Chayo Benson MD Video Game Developer: VIJAYA Gamboa; VIJAYA Lopez Security Sales Consultant Assisting: Richard Bradshaw MD Group Home Paraprofessional: Wali Art SURGICAL STAFF Administrative Officer: Piedad Maki RN; Rima Medel RN Relief Administrative Officer: Suri Stockton RN Relief Scrub: Ghanshyam Townsend [...] Arnold MD May 22, 2022 1:06 PM [facility] Work Phone: 1(253) 919-148611-04-2022 Note* Brief Op Note - Narciso Hong MD - 05/22/2022 1:04 PM EDT Zainab Swift ([id number]) PRE OPERATIVE DIAGNOSIS Primary malignant neuroendocrine tumor [...] Anesthesiologist: Vinicius Gupta DO; Chayo Benson MD Video Game Developer: VIJAYA Gamboa; VIJAYA Lopez Security Sales Consultant Assisting: Richard Bradshaw MD Group Home Paraprofessional: Wali Art SURGICAL STAFF Administrative Officer: Piedad Maki RN; Rima Medel RN Relief Administrative Officer: Suri Stockton RN Relief Scrub: Ghanshyam Townsend [...] Hong MD May 22, 2022 1:04 PM [facility] Work Phone: 1(625) 999-575511-04-2022 Note* Op Note - Archie Hugo MD, PhD - 05/22/2022 1:04 PM EDT SURGEONS: Archie Hugo MD, PhD SHORT ORDER FRY COOK SURGEON: Rodolfo Arnold MD PROCEDURE: - Exploratory [...] second timeout per standard procedure at the [facility]. We made a midline incision using [...] sarmiento stapler device. Next, we began the dkqnnv-yq-rnhvbpg dissection to mobilize the colonic mesentery. We [...] filed. We then proceeded with creating a caqg-ml-hvrp functional end-to-end anastomosis between the distalileum and [...] participated for the entirety of the case. [facility] Work Phone: 1(305) 125-814011-04-2022 Nurse Surgical operation note* Rima Medel RN - 05/22/2022 7:08 AM EDT 0815 Family notified of surgery start 1210 Family updated 1138 Handoff report sent to PACU charge nurse 1255 PACU given notice of arrival 1309 Patient extubated and transported to PACU with anesthesia at bedside and on oxygen inhalation Rima Medel RN [facility]11-04-2022 Nurse Note* Rima Medel RN - 05/22/2022 7:08 AM EDT 0815 Family notified of surgery start 1021, 1211 Family updated 1228 Handoff report sent to PACU charge nurse 1255 PACU given notice of arrival 1309 Patient extubated and transported to PACU with anesthesia at bedside and on oxygen inhalation Rima Medel RN [facility] this [facility]22 Note* Nursing Notes - Eli Hatch RN [...] Frequency Sat Last Date Seen 05/22/22 [facility]11-04-2022 History and physical note* Liza Cisneros PA-C [...] Surgeon: Archie Hugo MD, PhD; [facility] 04/08/2022 APPENDECTOMY LAPAROSCOPIC 02/03/2022 [place], [place] Family History Family History Problem Relation [...] hours as instructed. 05/21/2022 04/23/22 Elsie Mason APRN-SECURITY ROVER Review of Systems Denies the following: Arrhythmias, [...] to the patient's satisfaction. Liza Cisneros PA-C [facility]11-04-2022 History and physical note* Liza Cisneros [...] Surgeon: Archie Hugo MD, PhD; [facility] DIAGNOSTIC 04/08/2022 APPENDECTOMY LAPAROSCOPIC 02/03/2022 [place], [place] Family History Family History Problem Relation [...] Liza Cisneros PA-C documented in this [facility]22 Hospital Discharge instructions* Discharge Instructions* Pinky Be RN - 05/21/2022 10:38 AM EDT Contacts: Archie Hugo MD Office Number: [phone] Option 1 During office hours, Wednesday through Wednesday, 8:00 AM to 4:30 PM, call the office if you have any questions or concerns. After hours, weekends and holidays call the office number and you will be transferred to the After Hours Nurse Line. Call 911 for Emergencies. Your rn case mgr (PCRM) has arranged your appointments for follow [...] pharmacist before using any other medicine, including juzw-joa-rsjmclv medicines, vitamins, and herbal products. Avoid taking [...] and support, many resources are available. The [employer] Call to request information or check hours. [facility] Go[employer]y: or , www.Global [employer] [facility] Classes: [facility] for [facility], Integrative Care Monthly Classes The One Public for Life Program offers a series of [...] families and friends. For more information, contact [facility] Break Media [facility] at or visit our website at www.[employer] Resources in [facility] include the following: The [employer] Cancer Society, [facility] . The [facility] The Cancer Support CommunityRobert Breck [facility]: http://cancersupportohio.org/mxjgmgdv-ttm-krhpzhik/virtual-community/ National Resources: [place] Cancer Society (ACS), www.cancer.org 4-765-HHI-4302[place], [place]: 4-075-RAS-[place]. National Comprehensive Cancer [facility] (NCCN) 6-124-700-NCCN, www.nccn.org National Cancer [place] (NCI) 2-881-0-CANCER, www.nci.gov * Attachments The following attachments cannot be sent through Care Everywhere. * Lovenox or Heparin: Subcutaneous Injections ([facility]) ([place]) documented in this [facility]-2022 NotePROCEDURE: XR HIP RT 2 3V WO PELVIS, XR TIB_FIB RT 2V, XR FEMUR RT HISTORY: Pain in right leg , chronic COMPARISON: None. FINDINGS: BONES:No fracture, acute abnormality, or significant arthropathy. SOFT TISSUES:No visible soft tissue swelling. EFFUSION:None visible. OTHER: Negative. IMPRESSION: 1. Normal appearance of the right hip, femur, and tibia-fibula. Electronically authenticated by: CAROLYN WALSH Date: 2022-04-29 16:59[facility]10-12-2022 NotePROCEDURE: XR HIP RT 2 3V WO PELVIS, XR TIB_FIB RT 2V, XR FEMUR RT HISTORY: Pain in right leg , chronic COMPARISON: None. FINDINGS: BONES:No fracture, acute abnormality, or significant arthropathy. SOFT TISSUES:No visible soft tissue swelling. EFFUSION:None visible. OTHER: Negative. IMPRESSION: 1. Normal appearance of the right hip, femur, and tibia-fibula. Electronically authenticated by: CAROLYN WALSH Date: 2022-04-29 16:59[facility]10-12-2022 NotePROCEDURE: XR HIP RT 2 3V WO PELVIS, XR TIB_FIB RT 2V, XR FEMUR RT HISTORY: Pain in right leg , chronic COMPARISON: None. FINDINGS: BONES:No fracture, acute abnormality, or significant arthropathy. SOFT TISSUES:No visible soft tissue swelling. EFFUSION:None visible. OTHER: Negative. IMPRESSION: 1. Normal appearance of the right hip, femur, and tibia-fibula. Electronically authenticated by: CAROLYN WALSH Date: 2022-04-29 16:59[facility]09-01-20[facility] History of Present illness Narrative* Leanne Joy [...] appendectomy on 02/03/22 for acute appendicitis at [facility]. 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 She presents to [facility] GI Surgical Oncology clinic for surgical [...] History: Procedure Laterality Date APPENDECTOMY LAPAROSCOPIC 02/03/2022 [facility], [place], [place] No Known Allergies Current Outpatient Medications [...] in our surgical oncology clinic at [facility], [facility] and [facility]. As you know, Ms. Swift is [...] the future. Sincerely, Archie Hugo MD, PhD graduate school dean Department of Surgery Division of Surgical Oncology [address] [place] [address] Office [phone] Fax [email or web address] documented in this encounterC[facility]09-01-2022 Instructions* Patient Instructions* Rhoda Lazo RN [...] All of the surgical oncologists at the [facility] have completed specialized training and are board-certified. The surgeon who will be performing your surgery is Archie Hugo M.D., graduate school dean. [address] [place] [address] Office phone: [phone] We are available to take calls Wednesday-Wednesday 8:00am-4:30pm. During non-business hours and holidays phone calls will be forwarded to a service covering our patients. Please communicate with our team through [facility] [employer] for non-urgent issues only. Office fax: [phone] Clinic Nurse Practitioner Raina Gomes Health Technician Sandra Kennedy Inventory Control Analyst Iris Giraldo OUR TEAM OF EXPERTS [facility] is associated with [facility] and is an academic medical center. Dr. Skip Le is an attending physician, the tree fruit and nut farming supervisor of your care. Listed below are the members of his team: Surgical Oncology Fellow: a physician who completed residency and is obtaining further education. Resident(s): a physician who has finished architecture internship and is receiving training in a specialized area (i.e. surgery) Speech Language Therapist(s): a physician who has completed medical school and is in the 1st year of training Nurse Practitioner (BILLING COORDINATOR): A registered nurse with a master's or doctoral degree who is licensed to practice; [facility]: [facility] Hospital: [facility], [facility], Suman Jeffries, [facility], Kika Colón, [facility], Monica Jackson, [facility] Patient Care Hospital Recruiter (PCRM): A registered nurse who coordinates care [...] to 2 weeks to complete your request. [phone] DISABILITY FORMS This category includes any form [...] a private room? All rooms at the [facility] are private. Do you have a social services aide available? A social services aide is assigned to our team. How [...] my surgery? Yes. The precertification department at [facility] will notify your insurance carrier. Who should I contact if I anticipate difficulty paying my bill? We want to make sure all patients have access to the quality healthcare services of [facility], and we are committed to working with you and your family to obtain appropriate financial assistance. You may contact the Office of Financial Counseling [phone] weekdays between 8am and 5pm to help determine whether you might qualify for an assistance program. Do I need to bring clothes from home to wear at the hospital? The [facility] will provide you with personal items. You may wish to bring a robe or slippers. Does the [facility] have a designated area for smoking? The [facility] does not permit smoking inside or outside the hospitals including parking areas and sidewalks. If you would like to quit, you can contact a tobacco residential treatment specialist at [phone] [facility] Tobacco QUIT LINE at [phone]. Where can I find information about visitation, [...] someone after business hours? The office number, [phone] or [phone], is connected to an answering service after 4:30pm each weekday and on weekends, available 08/02. What number should I call if I have billing questions? Please call [facility] s Central Business Office at [phone]. Please Note: In regards to halfway pain control. You may need narcotic pain [...] call by 4 p.m., please call the [facility] at . Follow [...] the hospital. Do not wear makeup, nail portuguese or hair pins to the hospital. Please [...] a living will or durable power of family law attorney, please bring a copy of the documents with you. IF YOU USE CPAP BRING YOUR MACHINE WITH YOU TO THE HOSPITAL ALONG WITH THE PRESCRIPTION FOR CPAP PRESSURE LEVELS If you develop any illness, such as a cold, sore throat, cough, or fever, before your surgery, callthe [facility] at and our [...] pulp Popsicles Ice Soft drinks Gatorade (Lemon [place] preferred) Clear broth or bouillon Jello Coffee [...] not red, orange, or purple in color. Lemon-duckwater is preferred. You may need to pour [...] program. You can also get help through: [facility] Tobacco Dependency [facility], National Quit Line, Indonesian Lung Association, Indonesian Cancer Society, Smokefree.gov website Stop Alcohol Use [...] Anonymous (AA) http://www.aa.org/ Rethinking Drinking https://www.rethinkingdrinking.niaaa.nih.gov/ National [place] of Alcohol Abuse and Alcoholism https://niaaa.nih.gov/ Sasha Head [phone] -Inpatient, partial hospitalization and outpatient services for [...] Patient Controlled Analgesia (also known as a MECHANICAL MANUFACTURING ENGINEER) A MECHANICAL MANUFACTURING ENGINEER is a pain pump that could [...] take AM of surgery [facility] Miscellaneous Notes* Addendum Note - Zehra [...] your (the patient's) direct phone contact number?- [phone] 2) What is your referring diagnosis? Appendix [...] to cover travel expenses to [facility]? Yes We are currently flexible in offering initial virtual consultations for both surgery and transplant ONLY to patients living in [place], [place], and [place] through May 18, 2022. This may expand to other states depending on where the surgeon who conducts your initial visit is licensed ( is licensed in [place], [place], and [place]). If you are living in another state and desire an initial virtual consultation, you may choose to purchase a ScrollMotionult. (Surgical or transplant evaluations are highly individualized [...] [facility], and for any [place] your post-surgical course. 8) Would you be interested in participating in [facility] Care Online Virtual Visits for the psychosocial screening? - Yes If the patient says no, proceed as normal. If yes, please e-mail the patient and copy the social services aide on it. She will need them [...] have been over the past 1 year? [facility] (Submit ALL template in E-health, AND for transplant patients submit MOST RECENT template) -Where else have you been for surgeries or testing and what years? Where/when was your very first abdominal surgery? Same as above 1st abdominal surgery- 01/2022 (Submit ALL template in [employer]landing) 10) How many drinks of alcohol do [...] On medication - Psychiatrist (Submit request in E-[employer]) 15) Do you have a Power of Vaccine Customer Representative (POA)? Do you have a Living Will?- No If so, please bring a copy of this to your appointment. 16) For females: When and where was your last mammogram (40 and up) and pap smear (16 and up)? - Needs to be within last year.- PAP- Never had & Mammo- No (Submit request in [employer]land[employer]) 17) For all patients: When and where was your last dental visit? - Needs to be within last 6 months.- about 6 months ago (Submit request in [employer]land[employer]) 18) If transplant- Ask patient to obtain their immunization records and have them sent to us via mail/fax.- COVID- Yes The patient has been entered into Edit, chart is created, and request to [employer] for medical records has been generated. Financial clearance has been submitted for rehab/transplant (if on TPN or has dysmotility, submit for both rehab & transplant). Chart will be given to patient safety coordinator. * Telephone Encounter - Zehra Heath - 02/19/2022 3:51 PM EDT Referral received from [facility] Rod[facility] Olivas from [facility] ([phone]) to Dr. Davies. 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 Will call patient to start intake. [facility]* Encounter Date Diagnosis Assessment [...] Follow up with primary care provider or product support representative if no improvement of symptoms. Dec,Late menses (ICD-10 - N92.6)Recommend follow up with PCP or MACHINERY RIGGER for further workup [employer] Other Evaluation + Plan note Future Appointments Appointment Date:04/19/2025 01:15:00 PM Scheduled Provider:Diego Apodaca MD Location:[facility] Digestive Health Appointment Type: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 Diagnosis Primary malignant neuroendocrine tumor of appendix documented [facility] Diagnosis Primary malignant neuroendocrine tumor of appendix documented in this encounter [facility] note* Diagnosis Carcinoid syndrome- Primary SOB (shortness of breath) Shortness of breath Tachycardia Tachycardia, unspecified Antinuclear antibody (HUTNER) titer greater than 1:80 Primary malignant neuroendocrine tumor of appendix documented [facility] this [facility] Diagnosis Primary malignant neuroendocrine tumor of appendix documented [facility] Diagnosis Carcinoid syndrome SOB (shortness of breath) Shortness of breath Tachycardia Tachycardia, unspecified Primary malignant neuroendocrine tumor of appendix documented [facility] this [facility] Diagnosis Fibromyalgia muscle pain- Primary Mylagia and myositis, unspecified documented [facility] this 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 Neoplasm of unspecified nature of digestive system documented [facility]* Diagnosis Third trimester state, incidental documented in this encounter [facility]* Diagnosis Elevated liver enzymes- Primary Nonspecific elevation of levels of transaminase or lactic acid dehydrogenase (LDH) documented [facility] Diagnosis 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 Neoplasm of unspecified nature of digestive system Diarrhea, unspecified type Primary malignant neuroendocrine tumor of appendix Carcinoid syndrome Tachycardia Tachycardia, unspecified SOB (shortness of breath) Shortness of breath [facility] Diagnosis 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 Neoplasm of unspecified nature of digestive system documented [facility] noteNo assessment information available [facility] Work Phone: Evaluation note* Diagnosis Primary malignant neuroendocrine tumor of appendix- Primary [facility] Diagnosis Primary malignant neuroendocrine tumor of appendix [facility] Diagnosis Primary malignant neuroendocrine tumor of appendix- Primary Primary malignant neuroendocrine tumor of appendix documented [facility] Diagnosis Primary malignant neuroendocrine tumor of appendix [facility]* Diagnosis Well woman exam with routine gynecological exam Routine gynecological examination Menorrhagia with regular cycle documented in this encounter [facility] Healthcare[facility]* Diagnosis Colitis- Primary Other and unspecified noninfectious gastroenteritis and colitis Black stools Nonspecific abnormal finding in stool contents Diarrhea, unspecified type 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* Diagnosis Low grade mucinous neoplasm of appendix Neoplasm of unspecified nature of digestive system Primary malignant neuroendocrine tumor of appendix [facility] Diagnosis Low grade mucinous neoplasm of appendix Neoplasm of unspecified nature of digestive system Primary malignant neuroendocrine tumor of appendix documented [facility]* Diagnosis Primary malignant neuroendocrine tumor of appendix- Primary [facility]* Diagnosis Chronic migraine without aura without status migrainosus, not intractable- Primary Chronic migraine without aura, without mention of intractable migraine without mention of status migrainosus documented [facility]* Diagnosis Pelvic congestion syndrome Pelvic pain in female Unspecified symptom associated with female genital organs documented in this encounter [facility]* Diagnosis Chronic migraine without aura without status migrainosus, not intractable- Primary Chronic migraine without aura, without mention of intractable migraine without mention of status migrainosus documented [facility]* Diagnosis Chronic migraine without aura without status migrainosus, not intractable- Primary Chronic migraine without aura, without mention of intractable migraine without mention of status migrainosus documented [facility]* Diagnosis Chronic migraine without aura without status migrainosus, not intractable- Primary Chronic migraine without aura, without mention of intractable migraine without mention of status migrainosus documented [facility]* Diagnosis Pre-op examination Pelvic congestion syndrome Pelvic pain in female Unspecified symptom associated with female genital organs documented in this encounter [facility] HealthcareEvaluation note* Diagnosis 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 Other and unspecified nonspecific immunological findings Rosacea Interstitial cystitis Chronic interstitial cystitis Polyarthralgia Pain in joint, multiple sites Fibromyalgia Mylagia and myositis, unspecified Chronic abdominal pain Abdominal pain, unspecified site documented [facility]* Diagnosis Primary malignant neuroendocrine tumor of appendix documented [facility]* Diagnosis Primary malignant neuroendocrine tumor of appendix [facility] Diagnosis Pre-op examination Pelvic pain Pelvic congestion syndrome documented in this encounter [facility] HealthcareHistory general Narrative - Reported* Type Description Date Medical History chronic depression [facility] Other Hospital course Narrative No data available for this section [facility] Hospital Discharge instructions No data available for this section [facility] InstructionsNot on filedocumented in this encounter [facility] filedocumented in this encounter [facility]ructionsNot on filedocumented in this encounter [facility] No data available for this section [facility] Reason for referral (narrative)* (Routine)Specialty Diagnoses / ProceduresReferred By ContactReferred To Contact ISRRAEL [address] [place] [address] Referral IDStatusReasonStart DateExpiration DateVisits RequestedVisits Authorized * (Routine) - New RequestSpecialtyDiagnoses / ProceduresReferred By Contact Referred To Contact Procedures PLATELET MONITORING PER PROTOCOL Archie Hugo MD, PhD [address] [place] [address] Referral IDStatusReasonStart DateExpiration DateVisits RequestedVisits [id number] * (Routine) - New RequestSpecialtyDiagnoses / ProceduresReferred By Contact Referred To Contact Procedures DVT/VTE RISK ASSESSMENT Archie Hugo MD, PhD [address] [place] [address] Referral IDStatusReasonStart DateExpiration DateVisits RequestedVisits [id number] * (Routine) - New RequestSpecialtyDiagnoses / ProceduresReferred By Contact Referred To Contact Procedures NO MECHANICAL DVT PROPHYLAXIS Liza Cisneros PA-C [address] [place] [address] Referral IDStatusReasonStart DateExpiration DateVisits RequestedVisits [id number] [id number]/ [facility] (narrative)* Consultation (Routine) - New RequestSpecialtyDiagnoses / ProceduresReferred By ContactReferred To ContactOncology Diagnoses Primary malignant neuroendocrine tumor of appendix Raina Gomes APRN-SECURITY ROVER [address] [facility] [address] [place] [address] Andreas Ortega MD, MPH [address] [facility] [address] [place] [id number] Referral IDStatusReasonStart DateExpiration DateVisits RequestedVisits [id number] Tlzlsir86/ * MRI/CAT Scan (Routine) - New RequestSpecialtyDiagnoses / ProceduresReferred By ContactReferred To Contact Diagnoses Primary malignant neuroendocrine tumor of appendix Procedures CT ABDOMEN/PELVIS WITH CONTRAST CHG CT SCAN,ABDOMENT AND PELVIS,W CONTRAST Raina Gomes SCANNER SUPERVISOR-SECURITY ROVER [address] [place] [address] Referral IDStatusReasonStart DateExpiration DateVisits RequestedVisits [id number] [id number]/ [facility] for referral (narrative)* Consultation (Routine) - New RequestSpecialtyDiagnoses / ProceduresReferred By ContactReferred To ContactGenetics Diagnoses Primary malignant neuroendocrine tumor of appendix Christopher Moralez SCANNER SUPERVISOR-SECURITY ROVER [address] [place] [address] Erin Stoner, [facility] [address] [place] [address] Referral IDStatusReasonStart DateExpiration DateVisits RequestedVisits [id number] * MRI/CAT Scan (Routine) - New RequestSpecialtyDiagnoses / ProceduresReferred By ContactReferred To Contact Diagnoses Primary malignant neuroendocrine tumor of appendix Procedures CT ABDOMEN/PELVIS WITH AND WITHOUT CONTRAST CHG CT SCAN,ABDOMENT AND PELVIS,Andreas Ellis MD, MPH [address] [facility] [place] [address] [place] [address] Referral IDStatusReasonStart DateExpiration DateVisits RequestedVisits [id number] * Radiology (Routine) - New RequestSpecialtyDiagnoses / ProceduresReferred By ContactReferred To Contact Diagnoses Primary malignant neuroendocrine tumor of appendix Procedures NUC PET NEUROENDOCRINE CHG NUC THERAPY HYPERTHYROID SUBSEQUENT Christopher Moralez APRN-CNP [address] [place] [address] Referral IDStatusReasonStart DateExpiration DateVisits RequestedVisits [id number] Ohnbmip28/ [facility] Center[facility] for referral (narrative)No reason for referral information [facility] Work Phone: Reason for visit Narrative* Auth/CertSpecialty Diagnoses / ProceduresReferred By ContactReferred To Contact Diagnoses 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] Procedures WY CHG HYPERTHERMIA RX INTRACAV PROBE WY PART REMOVAL COLON W ANASTOMOSIS WY RESECT RECURRENT MACHINERY RIGGER MALIG 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) COLECTOMY PARTIAL OPEN DEBULKING INTRA-ABDOMINAL/PELVIC/RETROPERITONEAL W/ OMENECTOMY & PELVIC PARA- AORTIC LYMPHADENECTOMY Archie Hugo MD, PhD [address] [place] [address] [facility] [address] [place] [address] Referral IDStatusReasonStart DateExpiration DateVisits RequestedVisits [id number] [facility] Narrative* MRI/CAT Scan (Routine) - ClosedSpecialtyDiagnoses / ProceduresReferred By ContactReferred To Contact Diagnoses 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 Procedures CT ABDOMEN/PELVIS WITH AND WITHOUT CONTRAST CHG CT ABDOMEN & PELVIS W/O CONTRST 1/> BODY RE Christopher Moralez, SCANNER SUPERVISOR-SECURITY ROVER [address] [place] [address] Phone: tel: fax: Referral IDStatusReasonStart DateExpiration DateVisits RequestedVisits [id number]/ [facility] Narrative* MRI/CAT Scan (Routine) - ClosedSpecialtyDiagnoses / ProceduresReferred By ContactReferred To Contact Diagnoses Primary malignant neuroendocrine tumor of appendix Procedures CT ABDOMEN/PELVIS WITH AND WITHOUT CONTRAST CHG CT ABD&PLV W/O CNTRST 1/BTH FLWD CNTRST 1/BTH Yoel Cooley, SCANNER SUPERVISOR-SECURITY ROVER [address] [place] [address] Phone: tel: fax: Referral IDStatusReasonStart DateExpiration DateVisits RequestedVisits [id number]/ [facility] Summary Purpose Family History Relationship Condition Age at Onset Recorded Date/T joel mother Hypertension Unknown Diabetes mellitusUnknown Advance Directives Advance Directive Response Recorded Date/ Time Advance Directives No December 23 11:50am Reason for Referral SpecialtyDiagnoses / ProceduresReferred By ContactReferred To Contact Diagnoses Elevated liver enzymes Procedures TRANSIENT ELASTOGRAPHY Dolores Johnson, SCANNER SUPERVISOR-SECURITY ROVER [address] [place] [address] Referral IDStatusReasonStart DateExpiration DateVisits RequestedVisits [id number] Request/[id number] / Procedures Referred By ContactReferred To ContactEchocardiography Diagnoses Carcinoid syndrome SOB (shortness of breath) Tachycardia Procedures ECHOCARDIOGRAM WY ECHO HEART XTHORACIC,COMPLETE W DOPPLER Christopher Moralez APRN-SECURITY ROVER [address] [place] [address] Echocardiography Mode [address] [place] [address] Referral [facility]StatMer[facility] DateExpiration DateVisits RequestedVisits [id number] Not Needed/[id number] / ProceduresReferred By ContactReferred To Contact Diagnoses Primary malignant neuroendocrine tumor of appendix Procedures CT NECK WITH CONTRAST WY CT NECK TISSUE CONTRAST Christopher Moralez APRN-SECURITY ROVER [address] [place] [id number] Referral IDStatusReasonStart DateExpiration DateVisits RequestedVisits [id number] Request/[id number] / Procedures Referred By ContactReferred To Contact Diagnoses Carcinoid syndrome SOB (shortness of breath) Tachycardia Primary malignant neuroendocrine tumor of appendix Procedures CT CHEST WITH CONTRAST CHG DIAGNOSTIC COMPUTED TOMOGRAPHY THORAX W/CONTRAST Christopher Moralez, SCANNER SUPERVISOR-SECURITY ROVER [address] [place], [place] Referral IDStatusReasonStart DateExpiration DateVisits RequestedVisits [id number] Request/[id number] / Procedures Referred By ContactReferred To ContactOncology Diagnoses Carcinoid syndrome SOB (shortness of breath) Tachycardia Christopher Moralez APRN-[facility] [address] [place] [address] Referral IDStatusReasonStart DateExpiration DateVisits RequestedVisits [id number] Request3/[id number] / Procedures Referred By ContactReferred To ContactRheumatology Diagnoses Antinuclear antibody (HUNTER) titer greater than 1:80 Christopher [facility]alez [facility] [address] [place] [address] Referral IDStatusReasonStart DateExpiration DateVisits RequestedVisits [id number] Request/[id number] / Procedures Referred By ContactReferred To Contact Diagnoses Primary malignant neuroendocrine tumor of appendix Procedures CT ABDOMEN/PELVIS WITH CONTRAST CHG CT SCAN,ABDOMENT AND PELVIS,W CONTRAST Raina Gomes [facility] [address] [facility] [address] [place] [address] Referral IDStatusReasonStart DateExpiration DateVisits RequestedVisits [id number]/1/20229/26/[id number] / Procedures Referred By ContactReferred To ContactTRANSPLANT Diagnoses Cancer of appendix (HCC) Procedures CONSULT TO TRANSPLANT CENTER EXPLORATORY LAPAROTOMY CELIOTOMY W/WO BIOPSY SPX Vernon Davies MD [address] [place] [address] [facility] [address] [address] Referral IDStatUshaasonStart DateExpiration DateVisits RequestedVisits [id number] Review Financial Clearance Required - OON Payor [address] Chief Complaint and Reason for Visit Chief Complaint n63.0 Chief Complaint n63.0 Unknown Chief Complaint Admit Date Unknown November 02, 2024 1:1 2pm Chief Complaint Admit Date Unknown March 21, 2025 3:02pm Additional Source Comments INFORMATION SOURCE (unrecogn ized section and content) DATE CREATED AUTHOR 02/19/2021 [facility] DATE CREATED AUTHOR AUTHOR'S ORGANIZ ATION 12/25/2022 [facility] DATE CREATED AUTHOR AUTHOR'S ORGANIZ ATION 04/21/2024 [facility] DATE CREATED AUTHOR AUTHOR'S ORGANIZ ATION 03/24/2025 [facility] DATE CREATED AUTHOR AUTHOR'S ORGANIZ ATION 03/25/2025 [facility] DATE CREATED AUTHOR AUTHOR'S ORGANIZ ATION 04/05/2025 [facility] DATE CREATED AUTHOR AUTHOR'S ORGANIZ ATION 04/22/2025 [facility] REASON FOR VISIT (unrecogniz ed section and content) ReasonCommentsNew PatientSpecialtyDiagnoses / ProceduresReferred By Contact Referred To ContactRheumatology Diagnoses Primary malignant neuroendocrine tumor of appendix Yoel Cooley APRN-SECURITY ROVER [address] [place] [address] Phone: tel: fax: Referral IDStatusReasonart DateExpiration DateVisits RequestedVisits [id number] [id number] / ProceduresReferred By ContactReferred To ContactNeurology Diagnoses Chronic nonintractable headache, unspecified headache type Yoel Cooley, SCANNER SUPERVISOR-SECURITY ROVER [address] [place] [address] Phone: tel: fax: [facility] [address] 12th [place] [address] Phone: tel: fax: Referral IDStatusReasonStart DateExpiration DateVisits RequestedVisits [id number]/13/20254/[id number] Only SpecialtyDiagnoses / ProceduresReferred By ContactReferred To ContactClinical Pathology/Laboratory Medicine Diagnoses 1st floor labs jaylon pt prior to scan Procedures BLOOD DRAW Andreas Ortega MD, MPH [address] [place] [address] [place] [address] Phone: tel: fax: Clinical Lab Isrrael Otis [address] [place] [address] [place] [address] Phone: tel: fax: Referral IDStatusReasonStart DateExpiration DateVisits RequestedVisits [id number]/3/20253/473936HjnvauYfccpcfhRvocivmo Request SpecialtyDiagnoses / ProceduresReferred By ContactReferred To Contact Diagnoses Primary malignant neuroendocrine tumor of appendix Procedures CT ABDOMEN/PELVIS WITH CONTRAST CHG CT SCAN,ABDOMENT AND PELVIS,W CONTRAST Raina Gomes, SCANNER SUPERVISOR-SECURITY ROVER [address] [place] [address] Referral IDStatusReasonStburson DateExpiration DateVisits RequestedVisits [id number]/1/20229/26/921088RqkgujNfukikxzUxe PatientSpecialty Diagnoses / ProceduresReferred By ContactReferred To ContactSurgical Oncology Diagnoses New patient - Appendix NET - External: Dr. Timmy Hall - Preferred: Oanh Procedures [facility] SURGERY Self, Self Archie Hugo MD, PhD [address] [place] [address] Referral IDStatusReasonStart DateExpiration DateVisits RequestedVisits [id number]/1/20229/26/554044TfcwaoQuhcmyvuDijgsn-fhHowbcoVzhnramy New PatientNew diagnosis of stage 4 neuroendocrine tumor of the appendix with 1 peritoneal implant referred byDr. KimMost recent surgery 05/22/22--recovering well but slowlyLab ReviewLabs completed today prior to apptOtherC-diff infection just finished course of vancomycinSpecialtyDiagnoses / ProceduresReferred By ContactReferred To ContactOncology Diagnoses Primary malignant neuroendocrine tumor of appendix Raina Gomes, SCANNER SUPERVISOR-SECURITY ROVER [address] [place] [address] Andreas Ortega MD, MPH [address] [place] [phone] Referral IDStatusReasonStart DateExpiration DateVisits RequestedVisits [id number] Gebpudc86/742211OjalanumhZlkhelfqa / ProceduresReferred By ContactReferred To Contact Diagnoses Primary malignant neuroendocrine tumor of appendix Procedures NUC PET NEUROENDOCRINE CHG NUC THERAPY HYPERTHYROID SUBSEQUENT Christopher Moralez, SCANNER SUPERVISOR-SECURITY ROVER [address] [place] [address] Referral IDStatusReasonStburson DateExpiration DateVisits RequestedVisits [id number]/21/20221/204963KkcbqouwtFjetmgkmg / Procedures Referred By ContactReferred To Contact Diagnoses Primary malignant neuroendocrine tumor of appendix Procedures CT ABDOMEN/PELVIS WITH AND WITHOUT CONTRAST CHG CT SCAN,ABDOMENT AND PELVIS,COMBO Andreas Ortega MD, MPH [address] [place] [phone] Referral IDStatusReasonStburson DateExpiration DateVisits RequestedVisits [id number]/21/20221/327787FfohkkDggkcsppYmtdtf-sqJjughpp malignant neuroendocrine tumor of appendixOther09/09 first Octreotide [...] of appendix Procedures CT NECK WITH CONTRAST WY CT NECK TISSUE CONTRAST Christopher Moralez, SCANNER SUPERVISOR-SECURITY ROVER [address] [place] [address] Referral IDStatusReasonStart DateExpiration DateVisits RequestedVisits [id number]/22/20234/15/841179KnwbskupoFuhiilmtr / Procedures Referred By ContactReferred To ContactEchocardiography Diagnoses Carcinoid syndrome SOB (shortness of breath) Tachycardia Procedures ECHOCARDIOGRAM WY ECHO HEART XTHORACIC,COMPLETE W DOPPLER Christopher Moralez, SCANNER SUPERVISOR-SECURITY ROVER [address] [place] [address] Echocardiography Mode [address] [place] [address] Referral IDStatusReasonStburson DateExpiration DateVisits RequestedVisits [id number]/22/20234/15/527354PudhvwlctNodyaixul / Procedures Referred By ContactReferred To Contact Diagnoses Carcinoid syndrome SOB (shortness of breath) Tachycardia Primary malignant neuroendocrine tumor of appendix Procedures CT CHEST WITH CONTRAST CHG DIAGNOSTIC COMPUTED TOMOGRAPHY THORAX W/CONTRAST Christopher Moralez, SCANNER SUPERVISOR-SECURITY ROVER [address] [place] [address] Referral IDStatusReasonStart DateExpiration DateVisits RequestedVisits [id number]/22/20234/15/827535RupelwXzzpfcltKpy PatientReferred by Dorothy Moralez NP for JR. 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 Procedures MRI ABDOMEN/PELVIS WITHOUT CONTRAST WY MRI, ABDOMEN (MRI) WY MRI, PELVIS, W/O CONTRAST Christopher Moralez APRN-SECURITY ROVER [address] [place] [address] Referral IDStatusReasonStart DateExpiration DateVisits RequestedVisits [id number]/22/20239/692216WcogldGadmexpaXzlkzek Visit Referral IDStatusReasonStart DateExpiration DateVisits RequestedVisits [id number]/19/202310/167739UpkkgfnuoXsfpjpldw / Procedures Referred By ContactReferred To ContactGastroenterology Diagnoses Hepatomegaly Transaminitis Christopher Moralez APRN-SECURITY ROVER [address] [place] [address] Referral IDStatusReasonStart DateExpiration DateVisits RequestedVisits [id number] Review/482650XkryojJzcbwruyUfj Patient SpecialtyDiagnoses / ProceduresReferred By ContactReferred To ContactOncology Diagnoses Low grade mucinous neoplasm of appendix Christopher Moralez APRN-SECURITY ROVER [address] [place], [place] Referral IDStatusReasonStart DateExpiration DateVisits RequestedVisits [id number]/24/20245/767399MupejymupFjgfemhws / Procedures Referred By ContactReferred To Contact Diagnoses 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 Procedures CT ABDOMEN/PELVIS WITH AND WITHOUT CONTRAST CHG CT SCAN,ABDOMENT AND PELVIS,COMBO Christopher Moralez, SCANNER SUPERVISOR-SECURITY ROVER [address] [place] [address] Referral IDStatusReasonStart DateExpiration DateVisits RequestedVisits [id number]/24/20245/194357OfrqqaOukpn DateCommentsAdvice Only 4ReasonOnset DateCommentsChange In Lwoqqhrr63/24/2024SpecialtyDiagnoses / ProceduresReferred By ContactReferred To Contact Diagnoses Primary malignant neuroendocrine tumor of appendix Procedures CT ABDOMEN/PELVIS WITH AND WITHOUT CONTRAST CHG CT ABDOMEN & PELVIS W/O CONTRST 1/> BODY RE Anderas Ortega MD, MPH [address] [facility] 10th [place] [address] Referral IDStatusReasonStart DateExpiration DateVisits RequestedVisits [id number]/24/202410/293293KwpgrchujSvjznoqfh / Procedures Referred By ContactReferred To Contact Diagnoses Primary malignant neuroendocrine tumor of appendix Procedures NUC PET NEUROENDOCRINE CHG PET IMAGING CT ATTENUATION SKULL BASE MID-THIGH Christopher Moralez, SCANNER SUPERVISOR-SECURITY ROVER [address] [place] [address] Referral IDStatusReasonStart DateExpiration DateVisits RequestedVisits [id number]/19/20249/900845JhihkhZeexpoueSusw Women VisitReason CommentsUlcerative ColitisPossible colitis, CT recommends colonoscopyReasonOnset WhtnVpiitzjjKdcjggirufl89/13/2025ReasonCommentsPelvic congestion syndromeReason CommentsMed Change RequestReasonCommentsPre-op VisitReasonOnset DateComments Outside Medical Records Ccsbvqq1002/07/2025 Source Comments (unrecognize d section and content) [...] RUPERT PCP - General03/19/22 Rodney Olivas MD [address] [place] [address] Hematology03/19/22Team MemberRelationshipSpecialtyStart DateEnd Date Erin Whiteside, RUPERT PCP - General03/19/22 Rodney Olivas MD [address] [place] [address] Hematology03/19/22Team MemberRelationshipSpecialtyStart DateEnd Date Erin Whiteside, RUPERT PCP - General03/19/22 Rodney Olivas MD [address] [place] [address] Hematology03/19/22Team MemberRelationshipSpecialtyStart DateEnd Date Erin Whiteside, RUPERT PCP - General03/19/22 Rodney Olivas MD [address] [place] [address] Hematology03/19/22Team MemberRelationshipSpecialtyStart DateEnd Date Erin Whiteside, RUPERT PCP - General03/19/22 Rodney Olivas MD [address] [place] [address] Hematology03/19/22 rAchie Hugo MD, PhD [address] [place] [address] SurgeonSurgical Oebyizsk89/21/22Team MemberRelationshipSpecialtyStart DateEnd Date Erin Whiteside RN PCP - General03/19/22 Rodney Olivas MD [facility] [place] [address] Hematology03/19/22 Archie Hugo MD, PhD [address] [place] [address] SurgeonSurgical Krtentgi58/21/22Team MemberRelationshipSpecialtyStart DateEnd Date Erin Whiteside RN PCP - General03/19/22 Rodney Olivas MD [facility] [place] [address] Hematology03/19/22 Archie Hugo MD, PhD [address] [place] [address] SurgeonSurgical Osbnktri76/21/22Team MemberRelationshipSpecialtyStart DateEnd Date Erin Whiteside RN PCP - General03/19/22 Rodney Olivas MD [facility] [place] [address] Hematology03/19/22 Archie Hugo MD, PhD [address] [place] [address] SurgeonSurgical Wltjrhnp33/21/22 Fletcher Coelho MD [address] [place] [address] CardiologistCardiovascular Disease10/07/22Team MemberRelationshipSpecialtyStart DateEnd Date Erin Whiteside, RN PCP - General03/19/22 Rodney Olivas MD [facility] [place] [address] Hematology03/19/22 Archie Hugo MD, PhD [address] [place] [address] SurgeonSurgical Mkciqyti52/21/22 Fletcher Coelho MD [address] [place] [address] CardiologistCardiovascular Disease10/07/22Te MemberRelationshipSpecialtyStart DateEnd Date Erin Whiteside, RUPERT PCP - General03/19/22 Rodney Olivas MD [address] [place] [address] Hematology03/19/22 Archie Hugo MD, PhD [address] [place] [address] SurgeonSurgical Lhncwoxs24/21/22 Fletcher Coelho MD [address] [place] [address] CardiologistCardiovascular Disease10/07/22Te MemberRelationshipSpecialtyStart DateEnd Date Erin Whiteside, RUPERT PCP - General03/19/22 Rodney Olivas MD [facility] [place] [address] Hematology03/19/22 Archie Hugo MD, PhD [address] [place] [address] SurgeonSurgical Rbsmuhva61/21/22 Fletcher Coelho MD [address] [place] [address] CardiologistCardiovascular Disease10/07/22Team MemberRelationshipSpecialtyStart DateEnd Date Erin Whiteside, RN PCP - General03/19/22 Rodney Olivas MD [address] [place] [address] Hematology03/19/22 Archie Hugo MD, PhD [address] [place] [address] SurgeonSurgical Awjvjnhi38/21/22 Fletcher Coelho MD [address] [place] [address] CardiologistCardiovascular Disease10/07/22Team MemberRelationshipSpecialtyStart DateEnd Date Erin Whiteside, SECURITY ROVER [address] [place] [phone] PCP - General03/10/23 Rodney Olivas MD [facility] [place] [address] Hematology03/19/22 Archie Hugo MD, PhD [address] [place] [address] SurgeonSurgical Xmtnifgp21/21/22 Fletcher Coelho MD [address] [place] [address] CardiologistCardiovascular Disease10/07/22Team MemberRelationshipSpecialtyStart DateEnd Date Erin Whiteside, SECURITY ROVER [address] [place] [address] PCP - General03/10/23 Rodney Olivas MD [address] [place] [address] Hematology03/19/22 Archie Hugo MD, PhD [address] [place] [address] SurgeonSurgical Rdhtzrqj09/21/22 Fletcher Coelho MD [address] [place] [address] CardiologistCardiovascular Disease10/07/22Team MemberRelationshipSpecialtyStart DateEnd Date Erin Whiteside SECURITY ROVER [address] [place] [address] PCP - General03/10/23 Rodney Olivas MD [facility] [place] [address] Hematology03/19/22 Archie Hugo MD, PhD [address] [place] [address] [place] [address] SurgeonSurgical Rbnzjmkv01/21/22 Fletcher Coelho MD [address] [place] [address] CardiologistCardiovascular Disease10/07/22 Andreas Ortega MD, MPH [address] [place] 10th [place] [address] OncologistMedical Oncology03/31/23 Ron Ruano DO [address] [facility] 1 [place] [address] Obstetrics & Gynecology04/06/23Team MemberRelationshipSpecialtyStart DateEnd Date Erin Whiteside, SECURITY ROVER [address] [place] [address] [facility] - General03/10/23 Rodney Olivas MD [facility] [place] [address] Hematology03/19/22 Archie Hugo MD, PhD [address] [place] [address] [place] [address] SurgeonSurgical Rdnvrffg78/21/22 Fletcher Coelho MD [address] [place] [address] CardiologistCardiovascular Disease10/07/22 Andreas Ortega MD, MPH [address] [place] [address]th [place] [address] OncologistMedical Oncology03/31/23 Ron Ruano DO [address] [place] [address] Obstetrics & Gynecology04/06/23Team MemberRelationshipSpecialtyStart DateEnd Date Erin Whiteside, SECURITY ROVER [address] [place] [address] PCP - General03/10/23 Rodney Olivas MD [address] [place] [address] Hematology03/19/22 Archie Hugo MD, PhD [address] [place] [address] [place] [address] SurgeonSurgical Kjetwihs34/21/22 Fletcher Coelho MD [address] [place] [address] CardiologistCardiovascular Disease10/07/22 Andreas Ortega MD, MPH [address] [place] [address] [place] [phone] OncologistMedical Oncology03/31/23 Ron Ruano DO [address] [facility] [address] [place] [address] Obstetrics & Gynecology04/06/23Team MemberRelationshipSpecialtyStart DateEnd Date Erin Whiteside, SECURITY ROVER [address] [place] [address] PCP - General03/10/23 Rodney Olivas MD [address] [place] [address] Hematology03/19/22 Archie Hugo MD, PhD [address] [place] [address] [place] [address] SurgeonSurgical Henrpzev17/21/22 Fletcher Coelho MD [address] [place] [address] CardiologistCardiovascular Disease10/07/22 Andreas Ortega MD, MPH [address] [place] [address] [place] [address] OncologistMedical Oncology03/31/23 Ron Ruano DO [address] [place] [address] Obstetrics & Gynecology04/06/23Team MemberRelationshipSpecialtyStart DateEnd Date Erin Whiteside, SECURITY ROVER [address] [place] [phone] PCP - General03/10/23 Rodney Olivas MD [address] [place], [place] [address] Hematology03/19/22 Fletcher Coelho MD [address] [place] [address] CardiologistCardiovascular Disease10/07/22 Andreas Ortega MD, MPH [address] [place] [address] [place] [address] OncologistMedical Oncology03/31/23 Ron Ruano DO [address] [facility] [address] [place] [address] Obstetrics & Gynecology04/06/23 Alex Dolores Mari, SCANNER SUPERVISOR-SECURITY ROVER [address] [place] [address] [facility] Nurse Practitioner02/10/24 Vinicius Gomes MD, PhD [address] [place] [address]th [place] [address] OncologistMedical Oncology02/10/24 Diego Apodaca MD [address] [place] [phone] Gastroenterology02/16/24 Team Status: Active Member Role Status Dates Erin Whiteside NP-C Primary Care Provider Active Team Status: Inactive Member Role Status Dates Erin Whiteside NP-C Primary Care Pr ovider, Attending Provider, Referring Provider Active Start: April 03, 2024 End: April 03, 2024Team MemberRelationshipSpecialtyStart DateEnd Date Erin Whiteside CNP [address] [place] [address] PCP - General03/10/23 Rodney Olivas MD Hematology03/19/22 Fletcher Coelho MD [address] [place] [address] CardiologistCardiovascular Disease10/07/22 Andreas Ortega MD, MPH [address] [place] [address]th [place] [address] OncologistMedical Oncology03/31/23 Ron Ruano DO [address] [facility] [address] [place] [address] Obstetrics & Gynecology04/06/23 JohnsonDolores, SCANNER SUPERVISOR-SECURITY ROVER [address] [place] [address] [facility]ologistC[facility] Nurse Practitioner02/10/24 Vinicius Gomes MD, PhD [address] [place] [address]th [place] [address] OncologistMedical Oncology02/10/24 Diego Apodaca MD [address] [facility] [address] [place] [address] Gastroenterology02/16/24Team MemberRelationshipSpecialtyStart DateEnd Date Erin Whiteside, SECURITY ROVER [address] [facility] [place] [address] PCP - General03/10/23 Rodney Olivas MD Hematology03/19/22 Fletcher Coelho MD [address] [place] [address] CardiologistCardiovascular Disease10/07/22 Andreas Ortega MD, MPH [address] [place] [address] [place] [address] OncologistMedical Oncology03/31/23 Ron Ruano DO [address] [facility] 1 [place] [address] Obstetrics & Gynecology04/06/23 JohnsonDolores, SCANNER SUPERVISOR-SECURITY ROVER [address] [place] [address] GastroenterologistC[facility] Nurse Practitioner02/10/24 Vinicius Gomes MD, PhD [address] [place] [address]th [place] [address] OncologistMedical Oncology02/10/24 Diego Apodaca MD [address] [place] [address] Gastroenterology02/16/24Team MemberRelationshipSpecialtyStart DateEnd Date Erin Whiteside, SECURITY ROVER [address] [place] [address] PCP - General03/10/23 Rodney Olivas MD Hematology03/19/22 Fletcher Coelho MD [address] [place] [address] CardiologistCardiovascular Disease10/07/22 Andreas Ortega MD, MPH [address] [place] [address]th [place] [address] OncologistMedical Oncology03/31/23 Ron Ruano DO [address] [facility] 1 [place] [address] Obstetrics & Gynecology04/06/23 Dolores Johnson APRN-SECURITY ROVER [address] [place] [address] GastroenterologistCertified Nurse Practitioner02/10/24 Vinicius Gomes MD, PhD [address] [place] [address]th [place] [address] OncologistMedical Oncology02/10/24 Diego Apodaca MD [address] [place] [address] Gastroenterology02/16/24Team MemberRelationshipSpecialtyStart DateEnd Date Erin Whiteside, SECURITY ROVER [address] [place] [address] PCP - General03/10/23 Rodney Olivas MD Hematology03/19/22 Fletcher Coelho MD [address] [place] [address] CardiologistCardiovascular Disease10/07/22 Andreas Ortega MD, MPH [address] [place] [address] [place] [address] OncologistMedical Oncology03/31/23 Ron Ruano DO [address] [place] [address] Obstetrics & Gynecology04/06/23 Dolores Johnson APRN-SECURITY ROVER [address] [place] [address] [facility]enterologistC[facility] Nurse Practitioner02/10/24 Vinicius Gomes MD, PhD [address] [place] [address]th [place] [address] OncologistMedical Oncology02/10/24 Diego Apodaca MD [address] [place] [address] Gastroenterology02/16/24 Team Status: Inactive Member Role Status Dates Erin Whiteside , BILLING COORDINATOR-C Primary Care Provider Active Start: May 03, 2024 End: May 03, 2024MicMain [place] ProviderActiveStart: May 03, 2024 End: May 03, 2024Team MemberRelationshipSpecialtyStart DateEnd Date Erin Whiteside APRN-CNP [address] [place] [address] PCP - GeneralFamily Medicine02/11/22Team MemberRelationshipSpecialtyStart DateEnd Date Erin Whiteside APRN-CNP [address] [place] [address] PCP - GeneralFamily Medicine02/11/22Team MemberRelationshipSpecialtyStart DateEnd Date Erin Whiteside APRN-SECURITY ROVER [address] [facility] [place] [address] PCP - GeneralFamily Medicine02/11/22Team MemberRelationshipSpecialtyStart DateEnd Date Erin Whiteside, SCANNER SUPERVISOR-SECURITY ROVER [address] [facility] [place] [address] PCP - GeneralFamily Medicine02/11/22Team MemberRelationshipSpecialtyStart DateEnd Date Erni Whiteside, SECURITY ROVER [address] [facility] [place] [address] PCP - General03/10/23 Rodney Olivas MD Hematology03/19/22 Fletcher Coelho MD [address] [place] [address] CardiologistCardiovascular Disease10/07/22 Andreas Ortega MD, MPH [address] [place] [address] [place] [address] OncologistMedical Oncology03/31/23 Ron Ruano DO [address] [facility] 1 [place] [address] Obstetrics & Gynecology04/06/23 Dolores Johnson, SCANNER SUPERVISOR-SECURITY ROVER [address] [place] [address] GastroenterologistCertified Nurse Practitioner02/10/24 Vinicius Gomes MD, PhD [address] [place] [address]th [place] [address] OncologistMedical Oncology02/10/24 Diego Apodaca MD [address] [place] [address] [address] [place] [address] Gastroenterology02/16/24Team MemberRelationshipSpecialtyStart DateEnd Date Erin Whiteside, SECURITY ROVER [address] [facility] [place] [address] PCP - General03/10/23 Rodney Olivas MD Hematology03/19/22 Fletcher Coelho MD [address] [place] [address] CardiologistCardiovascular Disease10/07/22 Andreas Ortega MD, MPH [address] [place] [address] [place] [address] OncologistMedical Oncology03/31/23 Ron Ruano DO [address] [facility] 1 [place] [address] Obstetrics & Gynecology04/06/23 Dolores Johnson, SCANNER SUPERVISOR-SECURITY ROVER [address] [place] [address] GastroenterologistCertified Nurse Practitioner02/10/24 Vinicius Gomes MD, PhD [address] [place] [address]th [place] [address] OncologistMedical Oncology02/10/24 Diego Apodaca MD [address] [facility] [address] [place] [address] Gastroenterology02/16/24Team MemberRelationshipSpecialtyStart DateEnd Date Erin Whiteside, SECURITY ROVER [address] [facility] [place] [address] PCP - General03/10/23 Rodney Olivas MD Hematology03/19/22 Fletcher Coelho MD [address] [place] [address] CardiologistCardiovascular Disease10/07/22 Andreas Ortega MD, MPH [address] [place] 10th [place] [phone] OncologistMedical Oncology03/31/23 Rno Ruano DO [address] [facility] [address] [place] [address] Obstetrics & Gynecology04/06/23 Dolores Johnson, SCANNER SUPERVISOR-SECURITY ROVER [address] [place] [address] GastroenterologistCertified Nurse Practitioner02/10/24 Vinicius Gomes MD, PhD [address] [place] 8th [place] [address] OncologistMedical Oncology02/10/24 Diego Apodaca MD [address] [place], [place] [address]CT E [facility] [address] [place] [address] Gastroenterology02/16/24 Team Status: Inactive Member Role Status Dates Erin Whiteside BILLING COORDINATOR-C Primary Care Pr ovider, Attending Provider Active Start: November 02, 2024 End: November 02, 2024Team MemberRelationshipSpecialtyStart DateEnd Date Erin Whiteside, SECURITY ROVER [address] [facility] [place] [place] [phone] PCP - General03/10/23 Rodney Olivas MD Hematology03/19/22 Fletcher Coelho MD [address] 5TH [place] [address] CardiologistCardiovascular Disease10/07/22 Andreas Ortega MD, MPH [address] [place] 10th [place] [address] OncologistMedical Oncology03/31/23 Ron Ruano DO [address] [facility] [address] [place] [address] Obstetrics & Gynecology04/06/23 Dolores Johnson, SCANNER SUPERVISOR-SECURITY ROVER [address] [facility] [address] [place] [address] GastroenterologistCertified Nurse Practitioner02/10/24 Vinicius Gomes MD, PhD [address] [place] 8th [place] [address] OncologistMedical Oncology02/10/24 Diego Apodaca MD [address] [place] [address] Gastroenterology02/16/24Team MemberRelationshipSpecialtyStart DateEnd Date Erin Whiteside, TASH [address] [facility] [place] [address] PCP - General03/10/23 Rodney Olivas MD Hematology03/19/22 Fletcher Coelho MD [address] [place] [address] CardiologistCardiovascular Disease10/07/22 Andreas Ortega MD, MPH [address] [place] 10th [place] [address] OncologistMedical Oncology03/31/23 Ron Ruano DO [address] [facility] [address] [place] [address] Obstetrics & Gynecology04/06/23 Dolores Johnson, SCANNER SUPERVISOR-SECURITY ROVER [address] [facility] [address] [place] [address] GastroenterologistCertified Nurse Practitioner02/10/24 Vinicius Gomes MD, PhD [address] [place] 8th [place] [phone] OncologistMedical Oncology02/10/24 Diego Apodaca MD [address] [place] [address] Gastroenterology02/16/24Team MemberRelationshipSpecialtyStart DateEnd Date Erin Whiteside CNP [address] [facility] [place] [place] [address] PCP - General03/10/23 Rodney Olivas MD Hematology03/19/22 Fletcher Coelho MD [address]TH [place] [address] CardiologistCardiovascular Disease10/07/22 Andreas Ortega MD, MPH [address] [place] 10th [place] [address] OncologistMedical Oncology03/31/23 Ron Ruano DO [address] [facility] 1 [place] [address] Obstetrics & Gynecology04/06/23 Dolores Johnson, SCANNER SUPERVISOR-SECURITY ROVER [address] [facility] [address] [place] [address] GastroenterologistCertified Nurse Practitioner02/10/24 Vinicius Gomes MD, PhD [address] [place] 8th [place] [address] OncologistMedical Oncology02/10/24 Diego Apodaca MD [address] [place], [place] [address]CT E [facility] [address] [place] [address] Gastroenterology02/16/24Team MemberRelationshipSpecialtyStart DateEnd Date Erin Whiteside CNP [address] [facility] [place] [address] PCP - General03/10/23 Rodney Olivas MD Hematology03/19/22 Fletcher Coelho MD [address]TH [place] [address] CardiologistCardiovascular Disease10/07/22 Andreas Ortega MD, MPH [address] [place] 10th [place] [address] OncologistMedical Oncology03/31/23 Ron Ruano DO [address] [facility] [address] [place] [address] Obstetrics & Gynecology04/06/23 Dolores Johnson APRN-SECURITY ROVER [address] [facility] [address] [place] [address] GastroenterologistCertified Nurse Practitioner02/10/24 Vinicius Gomes MD, PhD [address] [place] 8th [place] [address] OncologistMedical Oncology02/10/24 Diego Apodaca MD [address] [place] [phone] Gastroenterology02/16/24Team MemberRelationshipSpecialtyStart DateEnd Date Erin Whiteside SECURITY ROVER [address] [facility] [place] [address] PCP - General03/10/23 Rodney Olivas MD Hematology03/19/22 Fletcher Coelho MD [address] [place] [phone] CardiologistCardiovascular Disease10/07/22 Andreas Ortega MD, MPH [address] [place] 10th [place] [address] OncologistMedical Oncology03/31/23 Ron Ruano DO [address] [facility] [address] [facility] [place] [address] Obstetrics & Gynecology04/06/23 Dolores Johnson APRN-SECURITY ROVER [address] [facility] [address] [facility] [place] [address] GastroenterologistCertified Nurse Practitioner02/10/24 Vinicius Gomes MD, PhD [address] [place] 8th [place] [address] OncologistMedical Oncology02/10/24 Diego Apodaca MD [facility] [address] [facility] [address] [place] [address] Gastroenterology02/16/24Team MemberRelationshipSpecialtyStart DateEnd Date Erin Whiteside, SECURITY ROVER [address] [facility] [place] [address] PCP - General03/10/23 Rodney Olivas MD Hematology03/19/22 Fletcher Coelho MD [address] [place] [address] CardiologistCardiovascular Disease10/07/22 Andreas Ortega MD, MPH [address] [place] 10th [place] [address] OncologistMedical Oncology03/31/23 Ron Ruano DO [address] [facility] [address] [place] [address] Obstetrics & Gynecology04/06/23 Dolores Johnson, SCANNER SUPERVISOR-SECURITY ROVER [address] [facility] [address] [place] [address] GastroenterologistCertified Nurse Practitioner02/10/24 Vinicius Gomes MD, PhD [address] [place] 8th [place] [address] OncologistMedical Oncology02/10/24 Diego Apodaca MD [address] [place] [address] [address] [place] [address] Gastroenterology02/16/24Team MemberRelationshipSpecialtyStart DateEnd Date Erin Whiteside, SECURITY ROVER [address] [facility] [place] [address] PCP - General03/10/23 Rodney Olivas MD Hematology03/19/22 Fletcher Coelho MD [address] [place] [address] CardiologistCardiovascular Disease10/07/22 Andreas Ortega MD, MPH [address] [place] 10th [place] [address] OncologistMedical Oncology03/31/23 Ron Ruano DO [address] [facility] 1 [place] [address] Obstetrics & Gynecology04/06/23 Dolores Johnson, SCANNER SUPERVISOR-SECURITY ROVER [address] [facility] [address] [place] [address] GastroenterologistCertified Nurse Practitioner02/10/24 Vinicius Gomes MD, PhD [address] [place] 8th [place] [address] OncologistMedical Oncology02/10/24 Diego Apodaca MD [address] [place], [place] [address]CT E [facility] [address] [place] [address] Gastroenterology02/16/24Team MemberRelationshipSpecialtyStart DateEnd Date Erin Whiteside, SECURITY ROVER [address] [facility] [place] [address] PCP - General03/10/23 Rodney Olivas MD Hematology03/19/22 Fletcher Coelho MD CardiologistCardiovascular Disease10/07/22 Andreas Ortega MD, MPH [address] [facility] 10th [place] [address] OncologistMedical Oncology03/31/23 Ron Ruano DO [address] [place] [address] [place] [address] Obstetrics & Gynecology04/06/23 Dolores Johnson, SCANNER SUPERVISOR-SECURITY ROVER [address] [place] [address] GastroenterologistCertified Nurse Practitioner02/10/24 Vinicius Gomes MD, PhD [address] [facility] 8th [place] [address] OncologistMedical Oncology02/10/24 Diego Apodaca MD [address] [place], [place] [address]CT [address] [address] Gastroenterology02/16/24 Team Status: Inactive Member Role Status [...] First dose (after last modification) on Wed05/27/22 [id number], , Indications: DVT/PE prophylaxis * 1847 (Given [...] Grier RN) * 0700 (Given - Provider: Yadria Grier RN) * 1350 (Given - Provider: [...] RN) * 0825 (Rate/Dose Verify - Provider: Tania Louis, RN) * 1023 (Stopped - Provider: [...] Provider: Yadira Grier RN) * 0659 (Epidural [place] Volume/Shift Total - Provider: Yadira Grier [...] Provider: Alena Wade, RN) * 1910 (Epidural [place] Volume/Shift Total - Provider: Alena Wade RN - Comment: 100mL left incartridge) * 0100 (Epidural [place] Volume/Shift Total - Provider: Craig Pagan [...] Wade RN) * 1227 (Paused - Provider: Alena Wade, RN) * 1239 (Restarted - Provider: [...] BE BASED ON THE PRIMARY CLINICAL RECORDS. [facility] [employer] [facility]. provides no warranty or guarantee of the accuracy or completeness of information in this document.
== END 2025-06-18 12:53 | disposition home or self-care (01) ==
PROVIDERS: PCP Nurse Practitioner Family; Visit Provider Nurse Practitioner Family
DX: M79.602 Pain in left arm (principal)
CPT/HCPCS: 76882

== ENCOUNTER 2025-07-05 10:45 | Outpatient (OUT) | payer OTHER, SELFPAY ==
--- OUTSIDE RECORDS SUMMARY | 2025-07-05 10:48 | XMS_ITS | Encounter Summary ---
Author Organization [facility] enter Address [address] [place] [address] Care Team Providers Care Parts Sales Counterperson Name Role Phone Rodney Olivas MD Unavailable Cheikh Coelho MD Unavailable Unavailable Erin Whiteside TICKET COLLECTOR OR USHER Primary Care Provider + Lavern Paul MD, MPH Unavailable [phone] Ron Ruano DO Unavailable [phone] Dolores Johnson APRN-TICKET COLLECTOR OR USHER Unavailable [phone] Vinicius Gomes MD, PhD Unavailable [phone] Diego Apodaca MD Unavailable [phone] Reason for Visit * ReasonOnset QgppGedkmoqpCfdjqowuw58/04/2025Medication Ipxpvcftnz09/04/2025 Encounter Details DateTypeDepartmentCare Team (Latest Contact Info)Gzcflprvabq65/04/2025Telephone [facility] [address] [place] [address] Consult, Oncology [place] [address] Paperwork; Medication Management Social History Tobacco UseTypesPacks/DayYears UsedDateSmoking Tobacco: NeverSmokeless Tobacco: NeverAlcohol UseStandard Drinks/WeekCommentsNever0 (1 standard drink = 0.6 oz pure alcohol)last alchohol 2019; mixed drink rarelyDepressionAnswerDate Recorded PHQ-9 Total Score (Interpretation of Total Score 1-4 = Minimal depression; 5-9 = Mild depression; 10-14 = Moderate depression; 15-19 = Moderately severe depression)CommentsNoSex and Gender InformationValueDate RecordedSex Assigned at BirthNot on fileLegal JjfIdovcx75/15/2022 8:46 AM EDT Gender EucxquonNchcvf89/24/2025 9:47 AM ESTSexual KyovkohfipdPlctxbmw13/24/2025 9:47 AM ESTdocumented as of this encounter Functional Status * Are you deaf or do you have serious difficulty hearing?AnswerDate of WzzfooxopsToocjkFq17/04/2022 3:44 PM Yvrose Herrera RN * Are you blind or do you have serious difficulty seeing, even when wearing glasses?AnswerDate of NtpclqeqvjZsflkhUe07/04/2022 3:44 PM Yvrose Herrera RN * Do you have serious difficulty walking or climbing stairs (5 years or older)? AnswerDate of NiewkpcpdsYvtalxLr31/04/2022 3:44 PM Yvrose Herrera RN * Do you have difficulty dressing or bathing (5 yrs or older)?AnswerDate of SetkauzmtvSkjthoFp98/04/2022 3:44 PM Yvrose Herrera RN * Because of a physical, mental, or emotional condition, do you have difficulty doing errands alone such as visiting a doctor's office or shopping (5 yrs or older)?AnswerDate of OzbtchixvpGwiflpUe63/04/2022 3:44 PM Yvrose Herrera RN documented as of this encounter Mental Status * Because of a physical, mental, or emotional condition, do you have serious difficulty concentrating, remembering, or making decisions (5 yrs or older)? AnswerEntry UpqlUunfvqMo26/04/2022 3:44 PM Yvrose Herrera RN documented in this encounter Miscellaneous Notes * Telephone Encounter - Cheikh Mcclelland - 06/21/2025 4:28 PM EST Yifan Otero Patient Paperwork Received: Type: Meds From: [facility] Sent To: Dr. Paul documented in this encounter Plan of Treatment DateTypeDepartmentCare Team (Latest Contact Info)Yulxumipfcc71/24/2025 1:00 PM ESTHospital Encounter Imaging and Mammography Outpatient Care [place] [address] [place] [address] Christopher Moralez, FLOOR GRINDER-TICKET COLLECTOR OR USHER [address] [place] [address] 07/11/2025 1:30 PM ESTHospital Encounter Imaging and Mammography Outpatient Care [place] [address] [place] [address] Christopher Moralez, FLOOR GRINDER-TICKET COLLECTOR OR USHER [address] [place] [address] 07/24/2025 8:30 AM ESTOffice Visit Division of Medical Oncology [address] [phone] Lavern Paul MD, MPH [address] [phone] documented as of this encounter Visit Diagnoses Not on filedocumented in this encounter Additional Health Concerns AssessmentNoted TimePHQ-9 Depression Total Score: 2:28 PM EDT documented as of this encounter Care Teams Team MemberRelationshipSpecialtyStart DateEnd Date Erin Whiteside CNP [address] [place] [address] PCP - General03/10/23 Rodney Olivas MD Hematology03/19/22 Cheikh Coelho MD CardiologistCardiovascular Disease10/07/22 Lavern Paul MD, MPH [address] [place] [address] OncologistMedical Oncology03/31/23 Ron Ruano DO [address] [place] [address] Obstetrics & Gynecology04/06/23 Dolores Johnson, FLOOR GRINDER-TICKET COLLECTOR OR USHER [address] [place] [address] GastroenterologistCertified Nurse Practitioner02/10/24 Vinicius Gomes MD, PhD [address] [place] [address] OncologistMedical Oncology02/10/24 Diego Apodaca MD [address] [place] [address] Gastroenterology02/16/24documented as of this encounter
--- OUTSIDE RECORDS SUMMARY | 2025-07-05 10:48 | XMS_ITS | Encounter Summary ---
Author Organization [facility] enter Address [address] [place] [address] Care Team Providers Care Science Professor Name Role Phone Rodney Olivas MD Unavailable Cheikh Coelho MD Unavailable Unavailable Erin Whiteside OPERATIONS DISPATCHER Primary Care Provider + Lavern Paul MD, MPH Unavailable [phone] Ron Ruano DO Unavailable [phone] Dolores Johnson APRN-OPERATIONS DISPATCHER Unavailable [phone] Vinicius Gomes MD, PhD Unavailable [phone] Diego Apodaca MD Unavailable [phone] Reason for Visit * ReasonOnset QglsIunfzlciIdcngzcwa24/11/2025Returning Phone Call06/28/2025 Encounter Details DateTypeDepartmentCare Team (Latest Contact Info)Slkxtqnwjgb56/11/2025Telephone Division of Medical Oncology [address] [place] [address]th [place] [address] Lavenr Paul MD, MPH [address] [place] 10th [place] [address] Paperwork; Returning Phone Call Social History Tobacco UseTypesPacks/DayYears UsedDateSmoking Tobacco: NeverSmokeless Tobacco: NeverAlcohol UseStandard Drinks/WeekCommentsNever0 (1 standard drink = 0.6 oz pure alcohol)last alchohol 2019; mixed drink rarelyDepressionAnswerDate Recorded PHQ-9 Total Score (Interpretation of Total Score 1-4 = Minimal depression; 5-9 = Mild depression; 10-14 = Moderate depression; 15-19 = Moderately severe depression)CommentsNoSex and Gender InformationValueDate RecordedSex Assigned at BirthNot on fileLegal OzwEcblqo56/15/2022 8:46 AM EDT Gender VgcdzbqeCwiydj72/24/2025 9:47 AM ESTSexual XlgltolkajzZllwcgnc00/24/2025 9:47 AM ESTdocumented as of this encounter Functional Status * Are you deaf or do you have serious difficulty hearing?AnswerDate of SdksrttmpwMxaejiWf75/04/2022 3:44 PM Yvrose Herrera RN * Are you blind or do you have serious difficulty seeing, even when wearing glasses?AnswerDate of VicengejemSllwklJj87/04/2022 3:44 PM Yvrose Herrera RN * Do you have serious difficulty walking or climbing stairs (5 years or older)? AnswerDate of RkaixaortbVkldenXj24/04/2022 3:44 PM Yvrose Herrera RN * Do you have difficulty dressing or bathing (5 yrs or older)?AnswerDate of EoirxmbkbjTyrtcpHi36/04/2022 3:44 PM Yvrose Herrera RN * Because of a physical, mental, or emotional condition, do you have difficulty doing errands alone such as visiting a doctor's office or shopping (5 yrs or older)?AnswerDate of DwnmqlwsftGghmnqWa23/04/2022 3:44 PM Yvrose Herrera RN documented as of this encounter Mental Status * Because of a physical, mental, or emotional condition, do you have serious difficulty concentrating, remembering, or making decisions (5 yrs or older)? AnswerEntry SnzoOcohvmWw76/04/2022 3:44 PM Yvrose Herrera RN documented in this encounter Miscellaneous Notes * Telephone Encounter - Louisa Guan RN - 06/28/2025 10:17 AM EST Already being addressed in different telephone encounter. * Telephone Encounter - Corrine Beatty - 06/28/2025 10:08 AM EST Pt returned RN's call to discuss pt's paperwork that was received on 06/21. Per pt, the voicemail stated that Dr. Paul cannot fill out the paperwork until patient does something first. Please advise pt on next steps. CB#: [phone] documented in this encounter Plan of Treatment DateTypeDepartmentCare Team (Latest Contact Info)Ynbxieympsf54/24/2025 1:00 PM ESTHospital Encounter Imaging and Mammography Outpatient Care [place] [address] [place] [address], [place] [address] Christopher Moralez, SLIP BOX CHANGER-OPERATIONS DISPATCHER [address] [phone] 07/11/2025 1:30 PM ESTHospital Encounter Imaging and Mammography Outpatient Care [place] [address] [place] [address], [place] [phone] Christopher Moralez, SLIP BOX CHANGER-OPERATIONS DISPATCHER [address] [phone] 07/24/2025 8:30 AM ESTOffice Visit Division of Medical Oncology [address] [phone] Lavern Paul MD, MPH [address] [phone] documented as of this encounter Visit Diagnoses Not on filedocumented in this encounter Additional Health Concerns AssessmentNoted TimePHQ-9 Depression Total Score: 2:28 PM EDT documented as of this encounter Care Teams Team MemberRelationshipSpecialtyStart DateEnd Date Erin Whiteside, OPERATIONS DISPATCHER [address] [place] [facility] [place] [address] [phone] PCP - General03/10/23 Rodney Olivas MD Hematology03/19/22 Cheikh Coelho MD CardiologistCardiovascular Disease10/07/22 Lavern Paul MD, MPH [address] [place] [facility] [place] [address] OncologistMedical Oncology03/31/23 Ron Ruano DO [address] [place] [address] Obstetrics & Gynecology04/06/23 Dolores Johnson, SLIP BOX CHANGER-OPERATIONS DISPATCHER [address] [place] [address] GastroenterologistCertified Nurse Practitioner02/10/24 Vinicius Gomes MD, PhD [address] [place] [facility] [place] [address] OncologistMedical Oncology02/10/24 Diego Apodaca MD [address] [place] [address] Gastroenterology02/16/24documented as of this encounter
--- OUTSIDE RECORDS SUMMARY | 2025-07-05 10:48 | XMS_ITS | Clinical Summary ---
Author Organization [employer] [facility] Address [id number] [address] [place] [address] Care Team Providers Care Full Fashioned Garment Knitter Name Role Phone Stevo Erin Persaud APRN-WICKER MOLDED CANDLES Primary Care Provider Allergies Active AllergyReactionsCriticalityNoted DateCommentsGabapentinDiarrhea,GI Pemfxfsripc73/22/2023MetronidazoleGI Wvdiffndwuk31/10/2024 Medications MedicationSigDispense QuantityRefillsLast FilledStart DateEnd DateStatus FLUoxetine [...] DateDiagnosed DateArrhythmia of fetus affecting management of ymuewokzo17/20/2023Supervision of other high risk pregnancies, second trimester 07/07/2023Low grade mucinous neoplasm of gzmuvntq31/04/2022Neuroendocrine neoplasm of cteyaojo40/04/2022 Family History Medical HistoryRelationNameCommentsAsthmaFatherKhrisKidney diseaseFatherKhris Breast cancerMaternal [...] you get together with friends or relatives?Patient krqdovqn28/03/2022How often do you attend episcopalian or uatsdin services?Never02/18/2022o you belong to any clubs or organizations such as episcopalian groups, unions, fraternal or athletic groups, or school groups?No 02/18/2022How often do you attend meetings of the clubs or organizations you belong to?Patient beawrujf60/03/2022re you , , , , never , or living with a partner?Tayyjzl4402/18/2022UDIT-C AnswerDate RecordedQ1: How often do you have [...] medical care, and heating?Somewhat hard02/18/2022 PHQ-2AnswerDate RecordedTotal Icswz0867/03/2022[facility] - Occupational Stress QuestionnaireAnswerDate [...] daily living?No02/18/2022 ChildcareAnswerDate RecordedDo problems getting child specialist make it difficult for you to work or study?No02/18/2022EmploymentAnswerDate RecordedDo you need help finding a local career center and/or a training program?No02/18/2022Hunger ScreeningAnswerDate RecordedWithin the past 12 months we worried whether our food would run out before we got money to buy more.Never True04/13/2024Food Insecurity - InabilityNot on file04/13/2024urpose - LifeAnswerDate RecordedI have a purpose and direction in my life.Somewhat Iowksuob22/03/2022Education AnswerDate RecordedWhat is the highest level of school you have completed or the highest degree you have received?Some college, no hjdmlf8802/18/2022 CommentsNoSex and Gender InformationValueDate RecordedSex Assigned at BirthNot on fileLegal ZmsLvnzvf11/20/2022 8:33 AM EDTGender IdentityNot on fileSexual OrientationNot on file Last Filed Vital Signs Vital SignReadingTime TakenCommentsBlood Aimhqbre972/6009 10:24 AM EDT Esumq532604/13/2024 10:24 AM EGBRwjwtxzynof67 ??C (96.8 ??F)06/18/2023 10:08 AM ESTRespiratory Ixbk2135 11:23 AM ESTOxygen Bjoclvgqye17%06/18/2023 11:23 AM ESTInhaled Oxygen Concentration--Uncmgw57.2 kg (157 lb)04/13/2024 10:24 AM DYRRboyan171.9 cm (5' 1 )04/13/2024 10:24 AM EDTBody Mass Index29.66004/13/2024 10:24 AM EDT Plan of Treatment Health MaintenanceDue DateLast DoneCommentsDepression Yeyvavqyq54/19/2009Pap Smear2018DTaP,Tdap and Td Vaccines (6 - Td or Tdap)/, 04/03/2002, 09/20/2000, Additional history existsCOVID-19 Vaccine ( season)/08/2020, 08/28/2020, 07/31/2020Influenza Bmnatel1003/19/2025 04/28/2021dult BMI Gecuxjodk78/26/22938604/13/2024Tobacco Nqowovzjm24/27/2025 04/14/2024 Medical Devices Not on file Insurance [address] [place] [address] Care Teams Team MemberRelationshipSpecialtyStart DateEnd Date Erin Whiteside, BATTERBOARD SETTER-WICKER MOLDED CANDLES [address] [facility] [place] [address] PCP - GeneralFamily Medicine02/11/22
--- OUTSIDE RECORDS SUMMARY | 2025-07-05 10:48 | XMS_ITS | Encounter Summary ---
Author Organization [facility] enter Address [address] [place] [address] Care Team Providers Care Wire Stitcher Name Role Phone Rodney Olivas MD Unavailable Cheikh Coelho MD Unavailable Unavailable Erin Whiteside LOGISTICS VICE PRESIDENT Primary Care Provider + Lavern Paul MD, MPH Unavailable [phone] Ron Ruano DO Unavailable [phone] Dolores Johnson APRN-LOGISTICS VICE PRESIDENT Unavailable [phone] Vinicius Gomes MD, PhD Unavailable [phone] Diego Apodaca MD Unavailable [phone] Reason for Visit * ReasonOnset DateCommentsFMLA/Xgwnsbuqdp72/24/2025 Encounter Details DateTypeDepartmentCare Team (Latest Contact Info)Rnyjeidqmam18/24/2025Telephone Division of Medical Oncology [address] [place] [address] Lavern Paul MD, MPH [address] [place] [address] FMLA/Disability Social History Tobacco UseTypesPacks/DayYears UsedDateSmoking Tobacco: NeverSmokeless Tobacco: NeverAlcohol UseStandard Drinks/WeekCommentsNever0 (1 standard drink = 0.6 oz pure alcohol)last alchohol 2019; mixed drink rarelyDepressionAnswerDate Recorded PHQ-9 Total Score (Interpretation of Total Score 1-4 = Minimal depression; 5-9 = Mild depression; 10-14 = Moderate depression; 15-19 = Moderately severe depression)CommentsNoSex and Gender InformationValueDate RecordedSex Assigned at BirthNot on fileLegal UsqSljszy43/15/2022 8:46 AM EDT Gender BrfeozxfAbingx42/24/2025 9:47 AM ESTSexual NmmexihulpjItgcxtiv76/24/2025 9:47 AM ESTdocumented as of this encounter Functional Status * Are you deaf or do you have serious difficulty hearing?AnswerDate of VjyidbcsceMdqxqySg52/04/2022 3:44 PM Yvrose Herrera RN * Are you blind or do you have serious difficulty seeing, even when wearing glasses?AnswerDate of MgzhnrazoiHtdmbeFv10/04/2022 3:44 PM Yvrose Herrera RN * Do you have serious difficulty walking or climbing stairs (5 years or older)? AnswerDate of CxhrigfvhwKxvzskOb88/04/2022 3:44 PM Yvrose Herrera RN * Do you have difficulty dressing or bathing (5 yrs or older)?AnswerDate of MwpsysywutXdhoffMs90/04/2022 3:44 PM Yvrose Herrera RN * Because of a physical, mental, or emotional condition, do you have difficulty doing errands alone such as visiting a doctor's office or shopping (5 yrs or older)?AnswerDate of CygazzpwygXididtQb02/04/2022 3:44 PM Yvrose Herrera RN documented as of this encounter Mental Status * Because of a physical, mental, or emotional condition, do you have serious difficulty concentrating, remembering, or making decisions (5 yrs or older)? AnswerEntry UnjmCnjqdnOu85/04/2022 3:44 PM Yvrose Herrera RN documented in this encounter Miscellaneous Notes * Telephone Encounter - Any Medrano RN - 07/04/2025 2:53 PM EST 07/04/2025 2:53 PM RN called patient to provide her with information. She has not been seen since [address] Paul. She will need to see her PCP to have her FMLA forms filled out and she will need to see PT/OT accordingly. -- Any Medrano RN * Telephone Encounter - Pinky Morales RN - 06/29/2025 5:26 PM EST Call placed back to patient. No answer received. LVM for patient to call our office back. * Telephone Encounter - Louisa Guan RN - 06/28/2025 10:17 AM EST Images from the original note were not included. From different telephone encounter: * Telephone Encounter - Any Medrano RN - 06/27/2025 4:[address] Paul, cannot sign the FMLA forms until she is evaluated by PT/OT. MD cannot sign until after she is evaluated by PT/OT. RN called patient and left this patient the above message accordingly. Patients last in person visit with out office was 10/07/2022. -- Any Medrano RN * Telephone Encounter - Pinky Morales RN - 06/22/2025 5:48 PM EST FMLA forms filled out - need to know left or right handed * Telephone Encounter - Pinky Morales RN - 06/11/2025 2:44 PM EST Called patient. Informed patient we can fill out this form. 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 Daily nausea, abdominal pain, flushing and diarrhea [...] Plan of Treatment DateTypeDepartmentCare Team (Latest Contact Info)Faxbdufrfld36/24/2025 1:00 PM ESTHospital Encounter Imaging and Mammography Outpatient Care [place] [address] [place] [address], [place] [address] Christopher Moralez, MACHINE SILVER STRIPPER-LOGISTICS VICE PRESIDENT [address] [phone] 07/11/2025 1:30 PM ESTHospital Encounter Imaging and Mammography Outpatient Care [place] [address] [place] [address], [place] [address] Christopher Moralez, MACHINE SILVER STRIPPER-LOGISTICS VICE PRESIDENT [address] [phone] 07/24/2025 8:30 AM ESTOffice Visit Division of Medical Oncology [address] [phone] Lavern Paul MD, MPH [address] [phone] documented as of this encounter Visit Diagnoses Not on filedocumented in this encounter Additional Health Concerns AssessmentNoted TimePHQ-9 Depression Total Score: 2:28 PM EDT documented as of this encounter Care Teams Team MemberRelationshipSpecialtyStart DateEnd Date Erin Whiteside, TASH [address] [place] [facility] [place] [phone] PCP - General03/10/23 Rodney Olivas MD Hematology03/19/22 Cheikh Coelho MD CardiologistCardiovascular Disease10/07/22 Lavern Paul MD, MPH [address] [place] [facility] [place] [phone] OncologistMedical Oncology03/31/23 Ron Ruano DO [address] [place] [address] Obstetrics & Gynecology04/06/23 Dolores Johnson APRN-LOGISTICS VICE PRESIDENT [address] [place] [address] GastroenterologistCertified Nurse Practitioner02/10/24 Vinicius Gomes MD, PhD [address] [place] [facility] [place] [address] OncologistMedical Oncology02/10/24 Diego Apodaca MD [address] [place] [phone] Gastroenterology02/16/24documented as of this encounter
--- OUTSIDE RECORDS SUMMARY | 2025-07-05 10:49 | XMS_ITS | Clinical Summary ---
Author Organization [facility] [place] [address] Care Team Providers Care Door Tender Name Role Phone Doc, Misc CUSTOMER SOLUTIONS TEAMMATE-STONE CUTTER Primary Care Provider Unavail able Immunizations ImmunizationAdministration DatesNext DuePFIZER (purple cap) COVID-19, mRNA, LNP- S, 30mcg/0.3mL dose06/19/2021 Social History Tobacco UseTypesPacks/DayYears UsedDateSmoking Tobacco: Never Assessed CommentsUnknownSex and Gender InformationValueDate RecordedSex Assigned at Not on fileLegal AkdGdwweg66/28/2021 12:29 PM EDTGender IdentityNot on file Sexual [...] Teams Team MemberRelationshipSpecialtyStart DateEnd Date Doc, Misc, CUSTOMER SOLUTIONS TEAMMATE-STONE [place] [address] PCP - LupzuxoZtnifhlxks23/2/21
--- OUTSIDE RECORDS SUMMARY | 2025-07-05 10:49 | XMS_ITS | Clinical Summary ---
Author Organization [facility] Address [address] [place] [address] Care Team Providers Care Electronics Research Engineer Name Role Phone Unavailable Primary Care [...] 3 (three) times a day as neededActive Family History Medical HistoryRelationNameCommentsBreast cancerMother's SisterRelationName StatusCommentsMother's Sister Social History Tobacco UseTypesPacks/DayYears UsedDateSmoking Tobacco: Never Assessed CommentsUnknownSex and Gender InformationValueDate RecordedSex Assigned at Ckqcls6101/25/2023 9:28 AM EDTLegal XyaAbeuva79/15/2023 11:48 PM EDTGender IjmbfmsaIpvhul86/10/2023 9:28 AM EDTSexual VeotkekbggkYgkwuenh68/10/2023 9:28 AM EDT Last Filed Vital Signs Vital SignReadingTime TakenCommentsBlood Sfnxybuq235/78002/01/2025 10:51 AM EDT Pulse--Temperature--Respiratory Rate--Oxygen Saturation--Inhaled Oxygen Concentration--Naprbn07.7 kg (151 lb 8 oz)02/01/2025 10:51 AM XLUHnkckv072 cm (5' 3 )03/30/2023 2:54 PM EDTBody [...] ProgressPatient-Stated?Author Reminders Care PlanOB RemindersNoOpen Scheduling, Background Additional Health Concerns Active ProblemsNoted DateDiagnosed DateOB Iujbqgpti41/28/2023 Insurance
--- OUTSIDE RECORDS SUMMARY | 2025-07-05 10:49 | XMS_ITS | Clinical Summary ---
Author Organization [facility] Address [address] [place] [address] [place] [address] Care Team Providers Care Carriage Setter Name Role Phone Rodney Olivas MD Unavailable Cheikh Coelho MD Unavailable Unavailable Erin Whiteside INTELLIGENCE ENGINEER Primary Care Provider + Lavern Paul MD, MPH Unavailable [phone] Ron Ruano DO Unavailable [phone] Dolores Johnson APRN-INTELLIGENCE ENGINEER Unavailable [phone] Vinicius Gomes MD, PhD Unavailable [phone] Diego Apodaca MD Unavailable [phone] Allergies Active AllergyReactionsCriticalityNoted JbyuOmgunykqUghlkkiuvgzxn03/10/2024 GabapentinNausea Only10/07/2022 Medications MedicationSigDispense QuantityRefillsLast FilledStart DateEnd DateStatus lamoTRIgine 100 MG tablet Take 0.5 tablets by mouth daily.Active FLUoxetine 20 MG capsule Take 2 capsules by mouth daily.Active Loperamide 2 MG capsule Take 1 capsule by mouth as needed for Diarrhea. 2 stat then 1 cap after each loose stoolActive Probiotic Product (PROBIOTIC PO) Take by mouth. + PrebioticActive Multiple Vitamins-Minerals (Multivitamin w/ minerals, THERAPEUTIC-M,) tablet Take 1 tablet by mouth daily.Active Ibuprofen 400 MG tablet Take 1 tablet by mouth every 6 hours as needed for Mild Pain.Active Acetaminophen 325 MG tablet Take 2 tablets by mouth every 4 hours.Active Ondansetron 4 MG tablet Take 1 tablet by mouth every 8 hours as needed for Nausea / Vomiting. 60 tablet /5Active Galcanezumab-gnlm 120 MG/ML Solution Auto-injector Indications:Chronic migraine [...] skin every 28 days. 0.2 mL 5Active Octreotide Acetate 100 MCG/ML Solution Prefilled Syringe prefilled syringe Indications:Carcinoid syndromeInject 1 mL under the skin 3 times daily as needed for Other (carcinoid syndrome). 90 mL 5Active Octreotide Acetate 100 MCG/ML Solution Prefilled Syringe prefilled syringe Inject 1 mL under the skin 3 times daily as needed for Other (carcinoid syndrome). 90 mL /07/2024Discontinued(Reorder) Octreotide Acetate 100 MCG/ML Solution Prefilled Syringe prefilled syringe Indications:Carcinoid syndromeInject 1 mL under the skin 3 times daily as needed for Other (carcinoid syndrome). 90 mL /09/2024Discontinued(Reorder) Active Problems ProblemNoted DateDiagnosed DateObesity (BMI 30.0-34.9)3Carcinoid ashgglxt80/16/2023Primary malignant neuroendocrine tumor of /04/2022 Cancer Staging: Pathologic stage from 05/22/2022:Stage IVC(TX, N1, M1b) - Unsigned Encounters DateTypeDepartmentCare YzcpPouvwfladvz35/11/2025[facility] Division of Medical Oncology [address] [place] [phone] Lavern Paul MD, MPH Paperwork; Returning Phone Call06/21/2025[facility] [address] [place] [address] Consult, Oncology Paperwork; Medication Tskbymzpnm02/03/2025Specialty Pharmacy Division of Medical Oncology [address] [phone] Christopher Moralez APRN-TASH Carcinoid elutjvoo47/03/2025[facility] [place] [address] [facility] [address] [place] [phone] Tadeo Caro Teahfubpt56/02/2025Orders Only Division of Medical Oncology [address] [phone] Christopher Moralez APRN-INTELLIGENCE ENGINEER Primary malignant neuroendocrine tumor of appendix (Primary Dx)06/18/2025Orders Only Genetics [address] [place] [address] Elayne Zavala, JOLENE Research study hplpxiz9806/11/2025[facility] Division of Medical Oncology [address] [phone] Lavern Paul MD, MPH FMLA/Zrbcahtwrt10/20/2025[facility] Neurology [facility] [address] [facility] [address] [place] [phone] Zeynep Murdock MA Appointmentfrom Last 3 Months [...] InformationValueDate RecordedSex Assigned at BirthNot on fileLegal PucVtlsxr45/15/2022 8:46 AM EDTGender Identity Bxjpna6209/11/2024 9:47 AM ESTSexual LfrsktzawreErhstttc56/24/2025 9:47 AM EST Last Filed Vital Signs Vital SignReadingTime TakenCommentsBlood Dzpbwxnr508/8607 9:58 AM EDT Satyi722412/21/2024 8:59 AM HNIVqhlpahenfv26.2 ??C (98.9 ??F)11/09/2024 2:54 PM EDTRespiratory Ulea6495 8:59 AM EDTOxygen Ozrrbnjfwl56%12/21/2024 8:59 AM EDTInhaled Oxygen Concentration--Unjbtf60.7 kg (151 lb 6.4 oz)12/21/2024 8:59 AM OARHvsxfr251.9 cm (5' 1 )11/09/2024 2:54 PM EDTBody Mass Index28.6104 2:54 PM EDT Plan of Treatment DateTypeDepartmentCare Team (Latest Contact Info)Xvnzwmtgzbr48/24/2025 1:00 PM ESTHospital Encounter Imaging and Mammography Outpatient Care [place] [address] [place] [phone] Christopher Moralez, TABLET MAKING MACHINE OPERATOR-INTELLIGENCE ENGINEER [address] [place] [phone] 07/11/2025 1:30 PM ESTHospital Encounter Imaging and Mammography Outpatient [place] [place] [phone] Christopher Moralez, TABLET MAKING MACHINE OPERATOR-INTELLIGENCE ENGINEER [address] [place] [phone] 07/24/2025 8:30 AM ESTOffice Visit Division of Medical Oncology [address] [place] [phone] Lavern Paul MD, MPH [address] [place] [phone] Health MaintenanceDue DateLast DoneCommentsHEPATITIS C VIRUS ZYPMAMTEC1997 HPV VACCINE (2 - 2-dose series)HIV SCREENING DISCUSSION 2012CERVICAL CANCER SCREENING PDFPLTXHXT80/19/6578LETAJAD54/27/2021 08/14/2010COVID-19 VACCINE ( season)512/08/2020, 08/28/2020, 07/31/2020INFLUENZA VACCINE (#1)510/05/2021HEP B VACCINECompleted 09/20/2000, 1997, 1997HPV VACCINE BQROErgrxfpswfvi48/27/2011TDAP (ADULT)Xuysosdxz56/27/2011PNEUMOCOCCAL VACCINE SERIESAged OutNo longer eligible based on patient's age to complete this topic Insurance * Guarantor: Dilan Martinez TypeRelation to PatientDate of BirthPhone Billing AddressPersonal/DblxqoYhtj[address] [place] [address] Care Teams Team MemberRelationshipSpecialtyStart DateEnd Date Erin Whiteside, INTELLIGENCE ENGINEER [address] [place] [address] PCP - General03/10/23 Rodney Olivas MD Hematology03/19/22 Cheikh Coelho MD CardiologistCardiovascular Disease10/07/22 Lavern Paul MD, MPH [address] [place] [phone] OncologistMedical Oncology03/31/23 Ron Ruano DO [address] [place] [phone] Obstetrics & Gynecology04/06/23 Dolores Johnson, TABLET MAKING MACHINE OPERATOR-INTELLIGENCE ENGINEER [address] [place] [address] GastroenterologistCertified Nurse Practitioner02/10/24 Vinicius Gomes MD, PhD [address] [place] [address] OncologistMedical Oncology02/10/24 Diego Apodaca MD [address] [place] [phone] Gastroenterology02/16/24
--- OUTSIDE RECORDS SUMMARY | 2025-07-05 10:49 | XMS_ITS ---
Author Organization [facility] Address [address] [place] [address] [place] [address] Care Team Providers Care Loading Machine Tool Setter Name Role Phone Rodney Olivas MD Unavailable Cheikh Coelho MD Unavailable Unavailable Erin Whiteside SHOT TUBE MACHINE TENDER Primary Care Provider + Lavern Paul MD, MPH Unavailable [phone] Ron Ruano DO Unavailable [phone] Dolores Johnson VERTICAL MILL OPERATOR-SHOT TUBE MACHINE TENDER Unavailable [phone] Vinicius Gomes MD, PhD Unavailable [phone] Diego Apodaca MD Unavailable [phone] Active Problems ProblemNoted DateDiagnosed DateObesity (BMI 30.0-34.9)3Carcinoid nmvdmobz04/16/2023Primary malignant neuroendocrine tumor of vnepjjpi85/04/2022 Cancer Staging: Pathologic stage from 05/22/2022:Stage IVC(TX, N1, M1b) - Unsigned Current Treatment and Therapy Plans OP LANREOTIDE 90 MG* Plan Start Date:06/19/2025 Plan Provider:MAMTA Travis Linked Problems Primary malignant neuroendoc rine tumor of appendixCarcinoid syndrome Treatment MedicationsCurrent Day (Day 1, Cycle 1 - Planned for 06/19/2025)Next Day (Day 1, Cycle 2 - Planned for 07/17/2025)* * Lanreotide (SOMATULINE) * * Lanreotide (SOMATULINE) injection 90 mg * * Lanreotide (SOMATULINE) injection 90 mg Past Treatment and Therapy Plans Plan NameStart DateDiscontinue DateTreatment MedicationsDiscontinue ReasonPlan ProviderCyclesOP OCTREOTIDE LAR [id number] medications scheduled.Other - see commentLavern Paul MD, MPHTreatment not started Lifetime Dose Tracking * ChemicalLifetime DoseAutomatic EntryManual GlsnpMltalajom66.847 mg/m2 (90 mg) 50.847 mg/m2 (90 mg)0 mg/m2 (0 mg)
--- OUTSIDE RECORDS SUMMARY | 2025-07-05 10:49 | XMS_ITS | Clinical Summary ---
Author Organization [facility] Address [address] [place] [address] Care Team Providers Care International Project Engineer Name Role Phone Connor Giraldo MD Unavailable [phone] Social History Tobacco UseTypesPacks/DayYears UsedDateSmoking Tobacco: Never Assessed CommentsUnknownSex and Gender InformationValueDate RecordedSex Assigned at Not on fileLegal BgeJsshxx14/04/2022 3:47 PM EDTGender IdentityNot on fileSexual OrientationNot on file Plan of Treatment Health MaintenanceDue DateLast DoneCommentsAnxiety Xzmghnaip33/19/2015Depression Urlqdlokt95/19/2015HIV Ilymkrtrq51/19/2015Hepatitis C Nuoiqfiso38/19/2015 DTaP,Tdap,Td Vaccine (1 - Tdap)2016Hepatitis B Vaccine (1 of 3 - 19+ 3- dose series)2016Cervical Cancer Utqwcebkb70/19/2018HPV Vaccine (1 - 3-dose SCDM series)4Covid-19 Vaccine (2 - 2024- season)/08/2020 Influenza Vaccine (#1)2025 Insurance * Guarantor: Zainab SwiftAccount TypeRelation to PatientDate of BirthPhone Billing FdgoqceDiuasqyrwvHyht[address] [address] Care Teams Team MemberRelationshipSpecialtyStart Date Connor Giraldo MD [address] [place] [address] [facility]08/29/24
--- NOTE | 2025-07-05 12:10 | PC.NURSE ---
Nursing Note Cardiac Stress Test Reviewed: Medication, allergies and patient history reviewed. Stress Test: [x ]? Patient tolerated stress test well. [ ]? Patient unable to tolerate walking on treadmill. Switched to Lexiscan stress test. [ ]? No chest pain noted per patient [x ]? Chest pain that resolved prior to leaving stress lab. [ ]? No dyspnea noted. [x ]? Dyspnea that resolved prior to leaving stress lab. [ x]? Patient left stress lab asymptomatic and hemodynamically stable. [ ]? Patient taken to the Emergency Room due to non-resolving symptoms following stress test. [x ]? Patient achieved target heart rate. [ ]? Patient unable to achieve target heart rate. [ ]? Aminophylline administered as reversal agent to Lexiscan (Regadenoson). [ ]? Nitro administered. Nursing Comments:Patient complained of chest heaviness and SOB. SOB and chest heaviness subsided in recovery stage.
--- NOTE | 2025-07-06 18:31 | PM.STRESS ---
Stress Test Stress Test Allergies Allergy/AdvReac Type Severity Reaction Status Date / Time metronidazole (From Flagyl) AdvReac Severe Vomiting Verified 06/15/25 18:55 gabapentin AdvReac Mild Vomiting Verified 06/15/25 18:55 Requesting physician: ELOISE SAMS Procedure: This was a Treadmill stress test performed at the [facility] on 07/05/2025. The patient was attached to electrocardiographic monitoring. Baseline vital signs and ECG were obtained. The patient exercised on the treadmill according to the Fede protocol. The patient exercised for 9 minutes on the treadmill and reached stage III of the Fede protocol. The patient achieved 10.1 METS. The test was terminated due to fatigue, chest heaviness and shortness of breath and achieving target heart rate. Resting heart rate was 88 bpm and maximal heart rate was 173 bpm representing 90% of maximal age-predicted heart rate. Resting blood pressure was 90/78 and maximum blood pressure was 138 over 78 mmHg. General Information: Reason for Stress Test: Chest pain. Cardiac History and Risk Factors: None. Resting 12 - Lead Electrocardiogram: Normal sinus rhythm with sinus arrhythmia. Nonspecific ST-T wave changes seen in leads III, and V6. Stress Test: Protocol: Fede protocol. Exercise Capacity: Average. Blood Pressure Response: Resting normal blood pressure. Appropriate blood pressure response to exercise. Rhythm: Sinus with no arrhythmias. ST - Response: Borderline ST segment depression seen in leads III and aVF and V6 with nonspecific T-wave inversion. Patient Response: Fatigue, chest heaviness, shortness of breath. Interpretation: 1. Equivocal stress test due to worsening of baseline abnormal ST-T wave changes during exercise. 2. A stress test with imaging such as treadmill exercise stress echocardiogram is recommended for further investigation if clinically indicated.
== END 2025-07-05 10:46 | disposition home or self-care (01) ==
LOC: CARD 10:45
PROVIDERS: PCP Nurse Practitioner Family; Visit Provider Nurse Practitioner Family
DX: R07.9 Chest pain, unspecified (principal)
CPT/HCPCS: 93017